=== PATIENT | male | born 1955 | race Caucasian/White ===

== ENCOUNTER → 2017-10-03 11:29 | Outpatient (CLI) | payer MEDICARE, SELFPAY ==
--- NOTE | 2017-10-03 15:09 | STRESSREP ---
Stress Test Report Date: 10/03/2017 Procedure: Exercise tolerance test Indications: Chest pain; CAD; status post CABG Consent: Per the patient Procedure: The patient exercised on a Everardo protocol for 7 minutes 30 seconds completing stage II and 1 minute 30 seconds of stage III achieving a peak heart rate of 144 bpm (92% predicted maximal heart rate) with a peak blood pressure 184/92 mmHg and a peak MET capacity of 9 METs. The baseline ECG demonstrated normal sinus rhythm. The peak exercise ECG demonstrated no obvious ECG changes. There were no cardiac dysrhythmias pretest, during exercise, or recovery. The functional capacity was considered good. The patient had no complaint of chest discomfort during exercise or recovery. The examination was discontinued secondary to leg discomfort. Impression: 1. Technically adequate (percent predicted maximal heart rate greater than 85%) exercise tolerance test 2. Peak exercise ECG with no obvious ECG changes 3. Good functional capacity This note was generated with [employer] software. It may contain incorrect words, spelling, and punctuation that were not noted in checking the note before signing.
--- NOTE | 2017-10-03 15:12 | STRESSREP_ITS ---
Stress Test Report Date: 10/03/2017 Procedure: Exercise tolerance test Indications: Chest pain; CAD; status post CABG Consent: Per the patient Procedure: The patient exercised on a Everardo protocol for 7 minutes 30 seconds completing stage II and 1 minute 30 seconds of stage III achieving a peak heart rate of 144 bpm (92% predicted maximal heart rate) with a peak blood pressure 184/92 mmHg and a peak MET capacity of 9 METs. The baseline ECG demonstrated normal sinus rhythm. The peak exercise ECG demonstrated no obvious ECG changes. There were no cardiac dysrhythmias pretest, during exercise, or recovery. The functional capacity was considered good. The patient had no complaint of chest discomfort during exercise or recovery. The examination was discontinued secondary to leg discomfort. Impression: 1. Technically adequate (percent predicted maximal heart rate greater than 85% ) exercise tolerance test 2. Peak exercise ECG with no obvious ECG changes 3. Good functional capacity This note was generated with [employer] software. It may contain incorrect words, spelling, and punctuation that were not noted in checking the note before signing.
== END ==
PROVIDERS: Family Provider Internal Medicine; PCP Internal Medicine; Visit Provider Internal Medicine Cardiovascular Disease
DX: I25.10 Atherosclerotic heart disease of native coronary artery without angina pectoris (principal); I25.708 Atherosclerosis of coronary artery bypass graft(s), unspecified, with other forms of angina pectoris
CPT/HCPCS: 93017

== ENCOUNTER → 2017-11-03 12:06 | Outpatient (CLI) | payer MEDICARE, SELFPAY ==
[2017-11-03 14:32] LABS: ALB/GLOB Ratio 1.1 RATIO (0.9-2.4); AST(SGOT) 23 U/L (15-37); Alanine Aminotransfer ALT/SGPT 34 U/L (16-61); Albumin, Serum 3.9 g/dL (3.2-5.0); Alkaline Phosphatase 100 U/L (45-117); Anion Gap 6 (5-15); BUN 25 mg/dL (7-18); BUN/Creat Ratio 23.8 RATIO (10-20); Calcium,Total 8.5 mg/dL (8.5-10.1); Chloride 106 mmol/L (98-107); Creatinine, Serum 1.05 mg/dL (0.70-1.30); EST Glomerular Filtration Rate 75 mL/min (>60); Est Glom Filt Rate - Afr Amer 91 mL/min (>60); Globulin 3.4 g/dL (2.2-4.2); Glucose 111 mg/dL (74-106); Potassium 4.1 mmol/L (3.5-5.1); Protein, Total 7.3 g/dL (6.4-8.2); Sodium Level 140 mmol/L (136-145); T4 Free Direct 0.66 ng/dL (0.76-1.46); Thyroid Stim Hormone (TSH) 2.13 uIU/mL (0.358-3.74)
== END ==
PROVIDERS: Visit Provider Nurse Practitioner
DX: R42 Dizziness and giddiness (principal); R53.81 Other malaise; R53.83 Other fatigue
CPT/HCPCS: 80053; 84439; 84443

== ENCOUNTER → 2018-06-28 12:50 | Outpatient (CLI) | payer MEDICARE, SELFPAY ==
[2017-07-17 10:12] VITALS: BMI 34.5
[2018-06-28 13:22] LABS: Absolute Lymphocyte Count 1.67 X10^3/ul (0.83-4.51); Absolute Neutrophil Count 2.9 X10^3/uL (2.0-7.7); Basophil# 0.03 X10^3/uL; Basophil% 0.5 % (0-1); Eosinophil# 0.31 X10^3/uL; Eosinophils% 5.7 % (0-5); Hematocrit 43.6 % (40-54); Hemoglobin 14.4 g/dl (13.0-16.5); Lymphocyte # 1.67 X10^3/ul (4.0); Lymphocyte % 30.5 % (19-41); Mean Corpuscular Volume 87.7 fL (80-94); Mean Platelet Vol. 9.2 fl (6.2-12.0); Monocyte# 0.54 X10^3/uL; Monocyte% 9.9 % (0-10); Neutrophil # 2.91 X10^3/uL (2.7-7.7); Neutrophil % 53.2 % (47-70); POSITIVE COUNT NO; POSITIVE DIFFERENTIAL NO; POSITIVE MORPHOLOGY NO; Platelet Count 283 K/mm3 (150-450); RBC Distribution Width CV 13.3 % (11.6-14.6); RBC Distribution Width SD 42.4 fl (35.1-43.9); Red Blood Count 4.97 M/mm3 (4.6-6.2); White Blood Count 5.5 K/mm3 (4.4-11.0)
[2018-06-28 13:31] LABS: AST(SGOT) 28 U/L (15-37); Alanine Aminotransfer ALT/SGPT 46 U/L (16-61); Albumin, Serum 3.7 g/dL (3.2-5.0); Alkaline Phosphatase 109 U/L (45-117); Anion Gap 6 (5-15); BUN 28 mg/dL (7-18); BUN/Creat Ratio 24.3 RATIO (10-20); Calcium,Total 8.8 mg/dL (8.5-10.1); Chloride 106 mmol/L (98-107); Creatinine, Serum 1.15 mg/dL (0.70-1.30); EST Glomerular Filtration Rate 68 mL/min (>60); Est Glom Filt Rate - Afr Amer 82 mL/min (>60); Globulin 3.6 g/dL (2.2-4.2); Glucose 134 mg/dL (74-106); Potassium 4.5 mmol/L (3.5-5.1); Protein, Total 7.3 g/dL (6.4-8.2); Sodium Level 140 mmol/L (136-145)
[2018-06-28 13:37] LABS: Hemoglobin A1c 7.3 % (4.2-6.3)
[2018-06-28 14:46] LABS: Microalbumin,Random Urine 7.6 mg/L (NO RANGE EST.); Microalbumin:Creatinine Ratio 4.8 mg/g CRE (<30 mg/g CRE)
== END ==
PROVIDERS: Family Provider Internal Medicine; PCP Internal Medicine; Referring Provider Internal Medicine; Visit Provider Internal Medicine
DX: R20.0 Anesthesia of skin (principal); R63.5 Abnormal weight gain; Z79.899 Other long term (current) drug therapy
CPT/HCPCS: 80053; 82043; 82570; 83036; 85025

== ENCOUNTER → 2018-07-10 07:36 | Outpatient (CLI) | payer MEDICARE, SELFPAY ==
[2018-07-10 13:11] LABS: Cholesterol 187 mg/dL (200); High Density Lipoprotein 39 mg/dL; Triglycerides 108 mg/dL; Very Low Density Lipoprotein 22 mg/dL (5-40)
--- OUTSIDE RECORDS SUMMARY | 2018-08-22 04:02 | XMS RPT_ITS ---
:[address] [facility] Support Name Relationship Address Phone D Unavailable Unavailable Unavailable SEJAL FIGUEROAHUNTER Unavailable [address] + [place] [address] LAURITA, ANDREE Unavailable Unavailable + [place] [address] D Unavailable Unavailable Unavailable SEJAL FIGUEROAANANE Unavailable [address] + [place] [address] LAURITA, ANDREE Unavailable Unavailable + [place] [address] D Unavailable Unavailable Unavailable SEJAL FIGUEROAANANE Unavailable [address] + [place] [address] LAURITA, ANDREE Unavailable Unavailable + [place] [address] D Unavailable Unavailable Unavailable WENDY FIGUEROANE Unavailable [address] + [place] [address] LAURITA, ANDREE Unavailable Unavailable + [place] [address] D Unavailable Unavailable Unavailable SEJAL FIGUEROAANANE Unavailable [address] + [place] [address] LAURITA, ANDREE Unavailable Unavailable + [place] [address] D Unavailable Unavailable Unavailable WENDY FIGUEROANE Unavailable [address] + [place] [address] LAURITA, ADNREE Unavailable . + [place] [address] Care Team Providers Name Role Phone Jose Luis Miranda Attending Unavailable Jose Luis Miranda Primary Care Unavailable Holly Cohen Attending Unavailable Holly Cohen Referring Unavailable Jose Luis Miranda Primary Care Unavailable Momo Costa Attending Unavailable Holly Cohen Referring Unavailable Adrian, Saira STATOR PLATE WASHER Attending Unavailable Miranda, Jose Luis Primary Care Unavailable Older, Saira STATOR PLATE WASHER Referring Unavailable Miranda, Jose Luis Attending Unavailable Miranda, Jose Luis Referring Unavailable Miranda, Jose Luis Primary Care Unavailable Miranda, Jose Luis Attending Unavailable Miranda, Jose Luis Referring Unavailable Miranda, Jose Luis Primary Care Unavailable OLDER, SAIRA (STATOR PLATE WASHER) Referring Unavailable OLDER, SAIRA (STATOR PLATE WASHER) Attending Unavailable MIRANDA, MANUEL Attending Unavailable OLDER, SAIRA (STATOR PLATE WASHER) Attending Unavailable OLDER, SIARA (STATOR PLATE WASHER) Referring Unavailable MIRANDA, MANUEL Attending Unavailable MIRANDA, MANUEL Referring Unavailable MIRANDA, MANUEL Referring Unavailable MIRANDA, MANUEL Referring Unavailable MIRANDA, MANUEL Attending Unavailable MIRANDA, MANUEL Referring Unavailable HOLLY COHEN Attending Unavailable HOLLY COHEN Referring Unavailable HOLLY COHEN Attending Unavailable HOLLY COHEN Referring Unavailable Jose Luis Miranda MD Primary Care Unavailable PROBLEMS PROBLEMS DATE TYPE CONDITION / CODE ATTENDING STATUS SOURCE 07/10/2018 Unknown Z79.899 - Other long Miranda, Active [place] term (current) drug [facility] therapy / Hospital Z79.899(ICD-10) Repository 06/28/2018 Unknown R20.0 - Anesthesia Miranda, Active [place] of skin / [facility] R20.0(ICD-10) Hospital Repository 06/28/2018 Unknown R63.5 - Abnormal Miranda, Active [place] weight gain / [facility] R63.5(ICD-10) Hospital Repository 06/28/2018 Active Other senior living NA Active [place] (current) drug [facility] Main therapy / [place] Z79.899(ICD-10) Repository 06/28/2018 Active Abnormal weight gain NA Active [place] / R63.5(ICD-10) Clinic Main [place] Repository 06/28/2018 Active Anesthesia of skin / NA Active [place] R20.0(ICD-10) Clinic Main [place] Repository 11/03/2017 Unknown R53.81 - Other Older, Saira STATOR PLATE WASHER Active [place] malaise / Community R53.81(ICD-10) Hospital Repository 11/03/2017 Unknown R42 - Dizziness and Older, Saira STATOR PLATE WASHER Active [place] giddiness / Community R42(ICD-10) Hospital Repository 11/03/2017 Unknown R53.83 - Other Older, Saira STATOR PLATE WASHER Active [place] fatigue / Community R53.83(ICD-10) Hospital Repository 10/26/2017 Active Other malaise / NA Active [place] R53.81(ICD-10) Clinic Main [place] Repository 10/26/2017 Active Other fatigue / NA Active [place] R53.83(ICD-10) Clinic Main [place] Repository 10/26/2017 Active Dizziness and NA Active [place] giddiness / Clinic Main R42(ICD-10) [place] Repository 10/30/2017 Unknown I25.10 - [place], Active [place] Atherosclerotic [facility] heart disease of [facility] anvik coronary Repository artery without angina pectoris / I25.10(ICD-10) 09/19/2017 Active Atherosclerosis of NOEL, Active [place] coronary artery [facility] Other bypass graft(s), [place] unspecified, with Repository other forms of angina pectoris / I25.708(ICD-10) 09/19/2017 Active Atherosclerotic NOEL, Active [place] heart disease of [facility] Other anvik coronary [place] artery without Repository angina pectoris / I25.10(ICD-10) 09/19/2017 Active Other forms of NOEL, Active [place] dyspnea / [facility] Other R06.09(ICD-10) [place] Repository 09/19/2017 Admitting Unknown / NOEL, Active [place] [facility] diagnosis UNK(Unknown) [facility] Repository 08/03/2017 Unknown Z12.5 - Encounter Isaac Miranda for screening for [facility] malignant neoplasm [facility] prostate / Repository Z12.5(ICD-10) 08/03/2017 Active Encounter for NA [facility] screening for [facility] malignant neoplasm [place] of prostate / Repository Z12.5(ICD-10) PROCEDURES PROCEDURES No Procedure Records FoundRESULTS RESULTS PROGRESS Observed: 07/17/2018 Status: COMPLETED Source: [place] 10:02 AM [facility] REPOSITORY HNO ID: [id number] Author: Jose Luis Miranda Service: (none) Author Type: Physician Type: Progress Notes Filed: 07/17/2018 10:21 AM Note Text: This note was created using [employer]riter. Subjective Abdirizak Figueroa was here for follow up. He was mainly concerned about his labs. His medication list was updated. He was seeing Dr. Garcia for pain management, and was being referred to [facility] for evaluation of arthritis. ACTIVE PROBLEM LIST Displacement of Cervical Intervertebral Disc Without Myelopathy Fibromyalgia Generalized Osteoarthritis Rosacea Other Hyperlipidemia Copd With Chronic Bronchitis (Hcc) Lumbosacral Neuritis Constipation Hearing Loss of Both Ears Cad (Coronary Artery Disease) Tubular Adenoma of Colon Impaired Fasting Glucose Gastroesophageal Reflux Disease With Esophagitis Bph With Obstruction/Lower Urinary Tract Symptoms Obesity, Class I, Bmi 30-34.9 Current Outpatient Prescriptions: celecoxib (CELEBREX) 200 mg capsule Take 200 mg by mouth once daily. atorvastatin (LIPITOR) 80 mg tablet Take 1 tablet by mouth daily at bedtime. traZODone (DESYREL) 50 mg tablet Take 1-2 tablets by mouth daily at bedtime. gabapentin (NEURONTIN) 300 mg capsule Take 1 capsule by mouth twice daily. Prescribed by pain management. albuterol HFA (VENTOLIN HFA) 90 mcg/actuation inhaler Inhale 2 Puffs as instructed every 4 hours as needed for Wheezing/Shortness of Breath. fluticasone (FLONASE) 50 mcg/actuation nasal spray Use 2 Sprays in each nostril once daily. multivitamin tablet Take 1 tablet by mouth once daily. HYDROcodone-acetaminophen 5-325 mg per tablet Take 1 tablet by mouth every 6 hours as needed. cyclobenzaprine (FLEXERIL) 10 mg tablet Take 1 tablet by mouth every 8 hours as needed. FOR PAIN OR SPASMS aspirin, enteric coated (ASPIR-81) 81 mg EC tablet Take 1 tablet by mouth once daily. calcium Carbonate 300 mg, 750mg, (TUMS) 300 mg (750 mg) chewable tablet Take 1 tablet by mouth as needed (heartburn). No current facility-administered medications for this visit. Review of Systems Constitutional: Negative. Respiratory: Negative. Cardiovascular: Negative. Gastrointestinal: Negative. Endocrine: Negative. Musculoskeletal: Positive for arthralgias and back pain. Neurological: Negative. Objective BP 118/78 (BP Site: Right Arm, BP Position: Sitting, BP Cuff Size: Large Adult) Pulse 76 Temp 36.5 ?C (97.7 ?F) (Left Tympanic) Resp 12 Wt 111.1 kg (245 lb) BMI 35.15 kg/m? Physical Exam Constitutional: No distress. Eyes: Conjunctivae are normal. Cardiovascular: Normal heart sounds. Pulmonary/Chest: Breath sounds normal. Abdominal: Soft. There is no tenderness. Musculoskeletal: He exhibits deformity. He exhibits no edema. Feet: Shoes and socks removed, No deformities, ulcers, calluses, normal distal pulses, sensitive to 10 gm monofilament and Pes planus. Test results pertinent to today's visit were reviewed and discussed with the patient. Assessment and Plan 1. Controlled type 2 diabetes mellitus without complication, without long-term current use of insulin ([facility]) - ICD9: 250.00, ICD10: E11.9 (primary diagnosis) newly diagnosed - Blood glucose monitoring on a once a day schedule - METFORMIN 500 MG TABLET - LANCETS - BLOOD SUGAR DIAGNOSTIC STRIPS - Goal is fasting below <130. 2 hours post meals <180. 2. Need for vaccination - ICD9: V05.9, ICD10: Z23 - ADMIN OF INFLUENZA VACCINE - INFLUENZA SEASONAL HIGH DOSE AGE 65+ - PNEUMOCOCCAL-13 VACCINE PCV-13 3. Impaired fasting glucose - ICD9: 790.21, ICD10: R73.01 Diabetic now. 4. Gastroesophageal reflux disease with esophagitis - ICD9: 530.11, ICD10: K21.0 - CALCIUM CARBONATE 300 MG (750 MG) CHEWABLE TABLET 5. 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 6. Other hyperlipidemia - ICD9: 272.4, ICD10: E78.49 - suboptimal control - Continue current medication. - ATORVASTATIN 80 MG TABLET 7. Generalized osteoarthritis - ICD9: 715.00, ICD10: M15.9 Per pain management. - CELECOXIB 200 MG CAPSULE Jose Luis Miranda MD CNOV Observed: 07/17/2018 Status: COMPLETED Source: [place] 9:20 AM [facility] REPOSITORY Office Visit (INTMWS) ABDIRIZAK FIGUEROA ([id number]) 1955 M NFR Date Time Provider Department 07/17/18 9:20 AM JOSE LUIS MIRANDA INTMWS During your visit today, we recorded the following information about you: Temperature Pulse Respiration Blood pressure 97.7 degrees 76/minute 12/minute 118/78 Weight 111.1 kg Kori Moura TORI 07/17/2018 9:44 AM Signed Influenza Vaccine Documentation: ? Patient is identified by name and date of : Yes ? Patient is older than 6 months of age: Yes ? Patient denies a severe allergy to any vaccine component or to a previous dose of influenza vaccine: Yes FOR EGG ALLERGY CONCERNS, REFER TO PROVIDER. ? Denies allergy to gelatin, formaldehyde, thimerosol :Yes ? Patient is afebrile and not moderately or severely ill: Yes ? Does the patient have a history of Guillain ?[place] Syndrome (a severe paralytic illness): No ? Denies bone marrow transplant prior 6 months or solid organ transplant prior 3 months: Yes ? Denies a history of fainting after a prior injection or medical procedure? Yes If patient has fainted in the past, the CDC recommends sitting or lying down for 15 minutes after the vaccination. ? VIS sheet provided: Yes ? See Immunization Form in [facility] for details of immunizations administered today. If patient reports dizziness, vision changes or ringing in the ears post vaccination ? please have patient sit or lie down for 15 minutes. Jose Luis Miranda MD 07/17/2018 10:21 AM Signed This note was created using [employer]. Subjective Abdirizak Figueroa was here for follow up. He was mainly concerned about his labs. His medication list was updated. He was seeing Dr. Garcia for pain management, and was being referred to [facility] for evaluation of arthritis. ACTIVE PROBLEM LIST Displacement of Cervical Intervertebral Disc Without Myelopathy Fibromyalgia Generalized Osteoarthritis Rosacea Other Hyperlipidemia Copd With Chronic Bronchitis (Hcc) Lumbosacral Neuritis Constipation Hearing Loss of Both Ears Cad (Coronary Artery Disease) Tubular Adenoma of Colon Impaired Fasting Glucose Gastroesophageal Reflux Disease With Esophagitis Bph With Obstruction/Lower Urinary Tract Symptoms Obesity, Class I, Bmi 30-34.9 Current Outpatient Prescriptions: celecoxib (CELEBREX) 200 mg capsule Take 200 mg by mouth once daily. atorvastatin (LIPITOR) 80 mg tablet Take 1 tablet by mouth daily at bedtime. traZODone (DESYREL) 50 mg tablet Take 1-2 tablets by mouth daily at bedtime. gabapentin (NEURONTIN) 300 mg capsule Take 1 capsule by mouth twice daily. Prescribed by pain management. albuterol HFA (VENTOLIN HFA) 90 mcg/actuation inhaler Inhale 2 Puffs as instructed every 4 hours as needed for Wheezing/Shortness of Breath. fluticasone (FLONASE) 50 mcg/actuation nasal spray Use 2 Sprays in each nostril once daily. multivitamin tablet Take 1 tablet by mouth once daily. HYDROcodone-acetaminophen 5-325 mg per tablet Take 1 tablet by mouth every 6 hours as needed. cyclobenzaprine (FLEXERIL) 10 mg tablet Take 1 tablet by mouth every 8 hours as needed. FOR PAIN OR SPASMS aspirin, enteric coated (ASPIR-81) 81 mg EC tablet Take 1 tablet by mouth once daily. calcium Carbonate 300 mg, 750mg, (TUMS) 300 mg (750 mg) chewable tablet Take 1 tablet by mouth as needed (heartburn). No current facility-administered medications for this visit. Review of Systems Constitutional: Negative. Respiratory: Negative. Cardiovascular: Negative. Gastrointestinal: Negative. Endocrine: Negative. Musculoskeletal: Positive for arthralgias and back pain. Neurological: Negative. Objective BP 118/78 (BP Site: Right Arm, BP Position: Sitting, BP Cuff Size: Large Adult) Pulse 76 Temp 36.5 ?C (97.7 ?F) (Left Tympanic) Resp 12 Wt 111.1 kg (245 lb) BMI 35.15 kg/m? Physical Exam Constitutional: No distress. Eyes: Conjunctivae are normal. Cardiovascular: Normal heart sounds. Pulmonary/Chest: Breath sounds normal. Abdominal: Soft. There is no tenderness. Musculoskeletal: He exhibits deformity. He exhibits no edema. Feet: Shoes and socks removed, No deformities, ulcers, calluses, normal distal pulses, sensitive to 10 gm monofilament and Pes planus. Test results pertinent to today's visit were reviewed and discussed with the patient. Assessment and Plan 1. Controlled type 2 diabetes mellitus without complication, without long-term current use of insulin (HCC) - ICD9: 250.00, ICD10: E11.9 (primary diagnosis) newly diagnosed - Blood glucose monitoring on a once a day schedule - METFORMIN 500 MG TABLET - LANCETS - BLOOD SUGAR DIAGNOSTIC STRIPS - Goal is fasting below <130. 2 hours post meals <180. 2. Need for vaccination - ICD9: V05.9, ICD10: Z23 - ADMIN OF INFLUENZA VACCINE - INFLUENZA SEASONAL HIGH DOSE AGE 65+ - PNEUMOCOCCAL-13 VACCINE PCV-13 3. Impaired fasting glucose - ICD9: 790.21, ICD10: R73.01 Diabetic now. 4. Gastroesophageal reflux disease with esophagitis - ICD9: 530.11, ICD10: K21.0 - CALCIUM CARBONATE 300 MG (750 MG) CHEWABLE TABLET 5. 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 6. Other hyperlipidemia - ICD9: 272.4, ICD10: E78.49 - suboptimal control - Continue current medication. - ATORVASTATIN 80 MG TABLET 7. Generalized osteoarthritis - ICD9: 715.00, ICD10: M15.9 Per pain management. - CELECOXIB 200 MG CAPSULE Jose Luis Miranda MD Referring Provider: JOSE LUIS MIRANDA [[id number]] Allergies As of Date: 07/17/2018 Noted Allergy Reaction ADHESIVE TAPE (ROSINS) 10/15/2014 9 - Itching CONTRAST DYE 07/28/2009 Comments: possible FD AND C BLUE NO.1 07/28/2009 SERTRALINE 01/14/2004 Comments: shellie fitch, elevated BP Date Reviewed: 07/17/2018 Reviewed by: Kori Moura LPN - Fully Assessed Reason for Visit: F/U 6 Month [444] Primary Visit Diagnosis:Controlled type 2 diabetes mellitus without complication, without long-term current use of insulin (HCC) [E11.9] Other Visit Diagnoses:Need for vaccination [Z23] Impaired fasting glucose [R73.01] Gastroesophageal reflux disease with esophagitis [K21.0] Coronary artery disease involving anvik coronary artery of anvik heart without angina pectoris [I25.10] Other hyperlipidemia [E78.49] Generalized osteoarthritis [M15.9] Order(s):ADMIN OF INFLUENZA VACCINE [[id number]] Order #: [id number]: 1 INFLUENZA SEASONAL HIGH DOSE AGE 65+ [[id number]] Order #: [id number] atorvastatin (LIPITOR) 80 mg tabletTake 1 tablet by mouth daily at bedtime.Disp: 90 tabletRfl: 3 calcium Carbonate 300 mg, 750mg, (TUMS) 300 mg (750 mg) chewable tabletTake 1 tablet by mouth as needed (heartburn).Disp: Rfl: PNEUMOCOCCAL-13 VACCINE PCV-13 [[id number]] Order #: [id number] metFORMIN (GLUCOPHAGE) 500 mg tabletTake 1 tablet by mouth twice daily with meals.Disp: 60 tabletRfl: 5 Lancets lancetsTest blood sugar(s) one times daily. Dx: Type 2 DM - Controlled E11.9 Insulin: NoDisp: 100 EachRfl: 5 blood sugar diagnostic (BLOOD GLUCOSE TEST) test stripTest blood sugar(s) one times daily. Dx: Type 2 DM - Controlled E11.9 Insulin: NoDisp: 50 StripRfl: 5 Prescriptions as of 07/17/2018 Sig: CELECOXIB 200 MG CAPSULE Take 200 mg by mouth once ladan* ATORVASTATIN 80 MG TABLET Take 1 tablet by mouth daily * TRAZODONE 50 MG TABLET Take 1-2 tablets by mouth ladan* GABAPENTIN 300 MG CAPSULE Take 1 capsule by mouth twice* ALBUTEROL SULFATE HFA 90 MCG/* Inhale 2 Puffs as instructed * FLUTICASONE 50 MCG/ACTUATION * Use 2 Sprays in each nostril * MULTIVITAMIN TABLET Take 1 tablet by mouth once d* HYDROCODONE 5 MG-ACETAMINOPHE* Take 1 tablet by mouth every * CYCLOBENZAPRINE 10 MG TABLET Take 1 tablet by mouth every * * ASPIRIN 81 MG TABLET,DELAYED * Take 1 tablet by mouth once d* CALCIUM CARBONATE 300 MG (750* Take 1 tablet by mouth as nee* METFORMIN 500 MG TABLET Take 1 tablet by mouth twice * LANCETS Test blood sugar(s) one times* BLOOD SUGAR DIAGNOSTIC STRIPS Test blood sugar(s) one times* Problem List As Of Date 07/17/2018 Noted Resolved CERVICAL DISC DISPLACMNT [M50.20] INVALID FOR* Fibromyalgia [M79.7] INVALID FOR* Generalized osteoarthritis [M15.9] INVALID FOR* Dysthymic disorder [F34.1] 07/17/2017 More... Rosacea [L71.9] More... More... Other hyperlipidemia [E78.49] COPD with chronic bronchitis (HCC) [J44.9] Other malaise and fatigue [R53.81, R53.83] 04/12/2016 Other specified disease of hair and hair follic* 11/04/2014 Headache(784.0) [R51] INVALID FOR*01/15/2018 Lumbosacral neuritis [M54.17] INVALID FOR* More... Diabetes mellitus [E11.9] INVALID FOR*09/04/2012 Constipation [K59.00] INVALID FOR* GERD (gastroesophageal reflux disease) [K21.9] INVALID FOR*07/17/2017 Hearing loss of both ears [H91.93] More... Pain in joint, shoulder region [M25.519] INVALID FOR*04/12/2016 Laboratory test [Z01.89] INVALID FOR*11/04/2014 More... CAD (coronary artery disease) [I25.10] INVALID FOR* More... Sore throat (viral) [J02.9] INVALID FOR*11/04/2014 More... Tubular adenoma of colon [D12.6] INVALID FOR* Impaired fasting glucose [R73.01] INVALID FOR* Calculus of gallbladder without cholecystitis w*INVALID FOR*01/15/2018 Gastroesophageal reflux disease with esophagiti*INVALID FOR* Hemorrhoids, internal [K64.8] INVALID FOR*01/15/2018 More... Bright red rectal bleeding [K62.5] INVALID FOR*07/17/2017 More... History of colonic polyps [Z86.010] INVALID FOR*07/17/2017 More... BPH with obstruction/lower urinary tract sympto*INVALID FOR* Obesity, Class I, BMI 30-34.9 [E66.9] INVALID FOR* Controlled type 2 diabetes mellitus without com*INVALID FOR* Visit Notes: >> Kori Moura LPN Tue Jul 17, 2018 9:24 AM Status: Signed Influenza Vaccine Documentation: ? Patient is identified by name and date of : Yes ? Patient is older than 6 months of age: Yes ? Patient denies a severe allergy to any vaccine component or to a previous dose of influenza vaccine: Yes FOR EGG ALLERGY CONCERNS, REFER TO PROVIDER. ? Denies allergy to gelatin, formaldehyde, thimerosol :Yes ? Patient is afebrile and not moderately or severely ill: Yes ? Does the patient have a history of Guillain ?[place] Syndrome (a severe paralytic illness): No ? Denies bone marrow transplant prior 6 months or solid organ transplant prior 3 months: Yes ? Denies a history of fainting after a prior injection or medical procedure? Yes If patient has fainted in the past, the CDC recommends sitting or lying down for 15 minutes after the vaccination. ? VIS sheet provided: Yes ? [facility] for details of immunizations administered today. If patient reports dizziness, vision changes or ringing in the ears post vaccination ? please have patient sit or lie down for 15 minutes. Prescriptions ordered this encounter Disp Refills Start End ATORVASTATIN 80 MG TABLET 90 t* 3 07/17/2018 Route: ORAL Sig: Take 1 tablet by mouth daily at bedtime. CALCIUM CARBONATE 300 MG (750 MG) CH* 07/17/2018 Class: OTC Route: ORAL Sig: Take 1 tablet by mouth as needed (heartburn). METFORMIN 500 MG TABLET 60 t* 5 07/17/2018 Route: ORAL Sig: Take 1 tablet by mouth twice daily with meals. LANCETS 100 * 5 07/17/2018 Sig: Test blood sugar(s) one times daily. Dx: Type 2 DM - Controlled E11.9 Insulin: No BLOOD SUGAR DIAGNOSTIC STRIPS 50 S* 5 07/17/2018 Sig: Test blood sugar(s) one times daily. Dx: Type 2 DM - Controlled E11.9 Insulin: No Medications Discontinued During This Encounter pantoprazole DR (PROTONIX) 40 mg tab* 90 t* 3 01/15/2018 07/17/2018 Route: ORAL Sig: Take 1 tablet by mouth daily before breakfast. Take on empty stomach, 1/2 hr before meal. Patient not taking: Reported on 07/17/2018 Disc: Discontinued by Patient atorvastatin (LIPITOR) 80 mg tablet 90 t* 3 05/04/2017 07/17/2018 Route: ORAL Sig: Take 1 tablet by mouth daily at bedtime. Disc: Reason for discontinue is not on file. venlafaxine ER (EFFEXOR XR) 75 mg 24* 60 c* 11 01/15/2018 07/17/2018 Route: ORAL Sig: Take 2 capsules by mouth once daily. Patient not taking: Reported on 07/17/2018 Disc: Discontinued by Patient Flurbiprofen 100 mg tablet 60 t* 0 01/15/2018 07/17/2018 Route: ORAL Sig: Take 1 tablet by mouth twice daily. For arthritis. Take with food. Patient not taking: Reported on 07/17/2018 Disc: Reason for discontinue is not on file. Disposition: Return in about 4 months (around 11/15/2018). Follow-up and Disposition History Recorded Encounter Status:Closed by JOSE LUIS MIRANDA MD on 07/17/18 LIPID PROFILE Collected: 07/10/2018 Status: F Source: [place] 7:53 AM [facility] [place] REPOSITORY TYPE CODE TESTS RESULT OUT OF RANGE REFERENCE UNITS LAB L501.4900 200 mg/dL Normal CHOL 187 Result Comment: <200 mg/dL Desirable 200-240 mg/dL Borderline >240 mg/dL High Risk LAB L501.5000 mg/dL Normal TRIG 108 Result Comment: The drugs N-Acetylcysteine and Metamizole may falsely depress this assay. Serum Triglycerides Reference Interval Normal <150 mg/dL Borderline high 150 - 199 mg/dL High 200 - 499 mg/dL Very High > or = 500 mg/dL LAB L501.6400 mg/dL Low HDL 39 Result Comment: The drugs N-Acetylcysteine and Metamizole may falsely depress this assay. Reference Range HDL <40 mg/dL Low HDL Cholesterol HDL >or= 60 mg/dL High HDL Cholesterol LAB L501.6500 0-130 mg/dL Normal LDL 126 LAB L501.6600 5-40 mg/dL Normal VLDL 22 Performed By: #### L500.4100 #### [facility] [address] [place], [address] LIPID PANEL, BASIC Collected: 07/10/2018 Status: F Source: [place] 7:53 AM [facility]IC [facility] REPOSITORY TYPE CODE TESTS RESULT OUT OF REFERENCE UNITS RANGE LAB CHOL <200 mg/dL Cholesterol Test sent to [facility]. Result Comment: Account Credited HIDE LAB TRIGLY <150 mg/dL Triglyceride Test sent to [facility]. Result Comment: Account Credited HIDE LAB HDL >39 mg/dL HDL-Cholesterol Test sent to [facility]. Result Comment: Account Credited HIDE LAB LDL <100 mg/dL LDL-Cholesterol Test sent to [facility]. Result Comment: Account Credited HIDE LAB NONHDL 90-159 mg/dL Non HDL Test Cholesterol sent to [facility]. Result Comment: Account Credited HIDE LAB FT hrs Fasting Time 12 LAB VLDL <30 mg/dL VLDL Cholesterol Test sent to [facility]. Result Comment: Account Credited HIDE LAB TCHDL <5.10 Test sent TC:HDL Ratio to [facility]. Result Comment: Account Credited HIDE LAB LDLHDL <2.54 Test sent LDL:HDL Ratio to [facility]. Result Comment: Account Credited RICHARDE ALBUMIN/CREAT RATIO Collected: 06/28/2018 Status: F Source: [place] 10:58 AM [facility] REPOSITORY TYPE CODE TESTS RESULT OUT OF REFERENCE UNITS RANGE LAB UCRR 20-300 mg/dL Test sent to [facility]. Result Comment: Account Credited HIDE LAB UALBR 0.0-23.0 mg/L Test Albumin Urine sent to [facility]. Result Comment: Account Credited HIDE LAB UALBCR 0-30 mg/g Albumin/Creat Ratio Test sent to [facility]. Result Comment: Account Credited RICHARDE CBC AND DIFFERENTIAL Collected: 06/28/2018 Status: F Source: [place] 8:03 AM [facility] REPOSITORY TYPE CODE TESTS RESULT OUT OF REFERENCE UNITS RANGE LAB WBC 3.70-11.00 k/uL Test WBC sent to [facility]. Result Comment: Account Credited HIDE LAB RBC 4.20-6.00 m/uL Test sent RBC to [facility]. Result Comment: Account Credited HIDE LAB HGB 13.0-17.0 g/dL Hemoglobin Test sent to [facility]. Result Comment: Account Credited HIDE LAB HCT 39.0-51.0 % Hematocrit Test sent to [facility]. Result Comment: Account Credited HIDE LAB MCV 80.0-100.0 fL Test sent MCV to [facility]. Result Comment: Account Credited HIDE LAB MCH 26.0-34.0 pG Test sent MCH to [facility]. Result Comment: Account Credited HIDE LAB MCHC 30.5-36.0 g/dL Test MCHC sent to [facility]. Result Comment: Account Credited HIDE LAB RDWCV 11.5-15.0 % Test RDW-CV sent to [facility]. Result Comment: Account Credited HIDE LAB PLTCT 150-400 k/uL Test Platelet Count sent to [facility]. Result Comment: Account Credited HIDE LAB MPV 9.0-12.7 fL Test sent MPV to [facility]. Result Comment: Account Credited HIDE LAB MAICO Recheck Test sent to [facility]. Result Comment: Account Credited HIDE LAB [facility]EUT [facility] Result Comment: Account Credited HIDE LAB AANEUT 1.45-7.50 k/uL Test Abs sent to [facility]. Result Comment: Account Credited HIDE LAB ALYMP % [facility] Result Comment: Account Credited HIDE LAB AALYMP 1.00-4.00 k/uL Test Abs Lymph sent to [facility]. Result Comment: Account Credited HIDE LAB AMONO % Test sent to Stearns% [facility]. Result Comment: Account Credited HIDE LAB AAMONO <0.87 k/uL Test sent Abs Stearns to [facility]. Result Comment: Account Credited HIDE LAB AEOS % Test sent to Eosin% [facility]. Result Comment: Account Credited HIDE LAB AAEOS <0.46 k/uL Test sent Abs Eosin to [facility]. Result Comment: Account Credited HIDE LAB ABASO % [facility] Result Comment: Account Credited HIDE LAB AABASO <0.11 k/uL Test sent Abs Baso to [facility]. Result Comment: Account Credited HIDE LAB REVW Test sent to Review [facility]. Result Comment: Account Credited HIDE LAB CBCCOM Comment Test sent to [facility]. Result Comment: Account Credited HIDE COMP METABOLIC PANEL Collected: 06/28/2018 Status: F Source: [place] 8:03 AM [facility] REPOSITORY TYPE CODE TESTS RESULT OUT OF REFERENCE UNITS RANGE LAB TP 6.3-8.0 g/dL Test sent to [facility]. Result Comment: Account Credited HIDE LAB ALB 3.9-4.9 g/dL Test Albumin sent to [facility]. Result Comment: Account Credited HIDE LAB CA 8.5-10.2 mg/dL Test Calcium, Total sent to [facility]. Result Comment: Account Credited HIDE LAB TBIL 0.2-1.3 mg/dL Bilirubin, Test Total sent to [facility]. Result Comment: Account Credited HIDE LAB ALKP 38-113 U/L Alkaline Test Phosphatase sent to [facility]. Result Comment: Account Credited HIDE LAB AST 14-40 U/L Test sent AST to [facility]. Result Comment: Account Credited RICHARDE LAB GLU 74-99 mg/dL Test sent Glucose to [facility]. Result Comment: Account Credited RICHARDE LAB BUN 9-24 mg/dL Test sent BUN to [facility]. Result Comment: Account Credited JEAN LAB CRET 0.73-1.22 mg/dL Creatinine Test sent to [facility]. Result Comment: Account Credited HIDE LAB NA 136-144 mmol/L Test Sodium sent to [facility]. Result Comment: Account Credited HIDE LAB K 3.7-5.1 mmol/L Test Potassium sent to [facility]. Result Comment: Account Credited HIDE LAB CL 97-105 mmol/L Test Chloride sent to [facility]. Result Comment: Account Credited RICHARDE LAB CO2 22-30 mmol/L Test sent CO2 to [facility]. Result Comment: Account Credited RICHARDE LAB AGAP 9-18 mmol/L Test sent Anion Gap to [facility]. Result Comment: Account Credited RICHARDE LAB ALT 10-54 U/L Test sent ALT to [facility]. Result Comment: Account Credited HIDE LAB GFRAA eGFR- Amer. Test sent to [facility]. Result Comment: Account Credited HIDE LAB GFRNAA . eGFR-All Test sent Other Races to [facility]. Result Comment: Account Credited JEAN LAB GFRPED eGFR-Ped. Test sent Factor to [facility]. Result Comment: Account Credited JEAN HEMOGLOBIN A1C Collected: 06/28/2018 Status: F Source: [place] 8:03 AM [facility] REPOSITORY TYPE CODE TESTS RESULT OUT OF REFERENCE UNITS RANGE LAB HGBA1C 4.0-6.0 % Test Hemoglobin A1c sent to [facility]. Result Comment: Account Credited JEAN LAB HBA0 mg/dL Est. Test sent Average Glucose to [facility]. Result Comment: Account Credited JEAN CBC W/DIFF, AUTOMATED Collected: 06/28/2018 Status: F Source: [place] 8:02 AM [facility] REPOSITORY TYPE CODE TESTS RESULT OUT OF RANGE REFERENCE UNITS LAB L100.1000 4.4-11.0 K/mm3 Normal WBC 5.5 LAB L100.1200 4.6-6.2 M/mm3 Normal RBC 4.97 LAB L100.1300 13.0-16.5 g/dl Normal HGB 14.4 LAB L100.1400 40-54 % Normal HCT 43.6 LAB L100.1500 80-94 fL Normal MCV 87.7 LAB L100.1600 27.0-32.0 pg Normal MCH 29.0 LAB L100.1700 32-36 g/gl Normal MCHC 33.0 LAB L100.1810 11.6-14.6 % Normal RDW CV 13.3 LAB L100.1820 35.1-43.9 fl Normal RDW SD 42.4 LAB L100.1900 150-450 K/mm3 Normal PLT 283 LAB L100.2000 6.2-12.0 fl Normal MPV 9.2 LAB L100.2100 47-70 % Normal NEUT% 53.2 LAB L100.2200 19-41 % Normal LY% 30.5 LAB L100.2300 0-10 % Normal MONO% 9.9 LAB L100.2400 0-5 % High EO% 5.7 LAB L100.2500 0-1 % Normal BASO% 0.5 LAB L100.2550 0.0-0.9 % Normal IM GRAN % 0.200 Result Comment: IG% - Immature Granulocytes (promyelocytes, myelocytes and metamyelocytes) > 1% indicates that a LEFT SHIFT is Present. LAB L100.2620 2.0-7.7 X10 3/uL Normal Absolute Neut 2.9 LAB L100.2720 0.83-4.51 X10 3/ul Normal Absolute Lymph 1.67 Performed By: #### L100.0100 #### [facility] [address] [place], [place], [address] CREATININE, URINE Collected: 06/28/2018 Status: F Source: [place] (RANDOM) 8:02 AM [facility] REPOSITORY TYPE CODE TESTS RESULT OUT OF RANGE REFERENCE UNITS LAB L501.1200 NO RANGE EST. mg/dL Normal UR CREAT 161.00 Performed By: #### L501.1200, L502.0250 #### [facility] [address] [place], [place], [address] MICROALB:CREAT Collected: 06/28/2018 Status: F Source: [place] RATIO,RANDOM UR 8:02 AM [facility] REPOSITORY TYPE CODE TESTS RESULT OUT OF RANGE REFERENCE UNITS LAB L501.1200 NO RANGE EST. mg/dL Normal UR CREAT 161.00 LAB L502.0500 NO RANGE EST. mg/L Normal 7.6 MICROALBUMIN ,UR LAB L502.0600 <30 mg/g CRE mg/g CRE Normal 4.8 MALB:CREAT Performed By: #### L501.1200, L502.0250 #### [facility] [address] [place], [address] COMPREHENSIVE METABOLIC Collected: 06/28/2018 Status: F Source: [place] PROFIL 8:02 AM [facility] REPOSITORY TYPE CODE TESTS RESULT OUT OF RANGE REFERENCE UNITS LAB L501.0100 74-106 mg/dL High GLU 134 Result Comment: Fasting Glucose result greater than or equal to 126 mg/dL suggests DIABETES MELLITUS per A.D.A. criteria. Please note revised GLUCOSE reference range effective 2017. LAB L501.1000 7-18 mg/dL High BUN 28 LAB L501.1100 0.70-1.30 mg/dL Normal CREAT,SERUM 1.15 Result Comment: The validity of the calculated GFR AND GFRAA in patients over 70 years has not been determined. Clinical correlation is essential. LAB L501.1110 >60 mL/min Normal EST GFR 68 Result Comment: Non- GFR Calc LAB L501.1115 >60 mL/min Normal EST GFR - AA 82 Result Comment: GFR Calc LAB L501.1300 10-20 RATIO High BUN/CRE 24.3 LAB L501.1500 6.4-8.2 g/dL T Normal PROT 7.3 LAB L501.1800 3.2-5.0 g/dL Normal ALB 3.7 LAB L501.1950 2.2-4.2 g/dL Normal GLOB 3.6 LAB L501.2000 0.9-2.4 RATIO Normal A/G 1.0 LAB L501.2200 8.5-10.1 mg/dL CA Normal 8.8 LAB L501.4100 15-37 U/L Normal AST 28 LAB L501.4305 45-117 U/L Normal ALK P 109 LAB L501.4405 16-61 U/L Normal ALT 46 LAB L501.4600 0.20-1.00 mg/dL T Normal BILI 1.00 LAB L501.5300 136-145 mmol/L NA Normal 140 LAB L501.5600 3.5-5.1 mmol/L K Normal 4.5 LAB L501.5900 98-107 mmol/L CL Normal 106 LAB L501.6100 21.0-32.0 mmol/L Normal CO2 28.0 LAB L501.6200 5-15 Normal GAP 6 Performed By: #### L500.4050 #### [facility] [address] [place], [address] HEMOGLOBIN A1C Collected: 06/28/2018 Status: F Source: [place] 8:02 AM [facility] REPOSITORY TYPE CODE TESTS RESULT OUT OF RANGE REFERENCE UNITS LAB L501.9985 4.2-6.3 % High HGB A1C 7.3 Performed By: #### L501.9985 #### [facility] [address] [place], [address] PROGRESS Observed: 01/15/2018 Status: COMPLETED Source: [place] 9:03 AM [facility] REPOSITORY HNO ID: [id number] Author: Jose Luis Miranda Service: (none) Author Type: Physician Type: Progress Notes Filed: 01/15/2018 9:15 AM Note Text: This note was created using [employer]riter. Subjective Abdirizak Figueroa is a 62 year old male was here for follow up with his . He mainly needed refills. Fatigue was ongoing, more attributed to chronic insomnia from fibromyalgia. He tended to self adjust his trazodone and venlafaxine depending on how he is feeling. His other issues were stable. He woke up with painless blood in his left ear a few weeks ago. He had chronic pain but was mainly bothered by left thumb pain. He continued with prostatism as well and tamsulosin did not help. Review of Systems Constitutional: Negative. HENT: Positive for ear discharge. Negative for ear pain. Respiratory: Negative. Cardiovascular: Negative. Gastrointestinal: Negative. Genitourinary: Positive for decreased urine volume and difficulty urinating. Negative for dysuria. Musculoskeletal: Positive for arthralgias. ACTIVE PROBLEM LIST Displacement of Cervical Intervertebral Disc Without Myelopathy Fibromyalgia Generalized Osteoarthritis Rosacea Other Hyperlipidemia Copd With Chronic Bronchitis (Hcc) Lumbosacral Neuritis Constipation Hearing Loss of Both Ears Cad (Coronary Artery Disease) Tubular Adenoma of Colon Impaired Fasting Glucose Gastroesophageal Reflux Disease With Esophagitis Bph With Obstruction/Lower Urinary Tract Symptoms Obesity, Class I, Bmi 30-34.9 Objective BP 142/76 (BP Site: Right Arm, BP Position: Sitting, BP Cuff Size: Regular Adult) Pulse 72 Temp 36.8 ?C (98.3 ?F) (Left Tympanic) Resp 16 Wt 110.2 kg (243 lb) BMI 34.87 kg/m? Physical Exam Constitutional: No distress. HENT: Left Ear: Tympanic membrane, external ear and ear canal normal. Cardiovascular: Normal heart sounds. Pulmonary/Chest: Breath sounds normal. Abdominal: Soft. Musculoskeletal: He exhibits no edema. Assessment and Plan 1. Insomnia, unspecified type - ICD9: 780.52, ICD10: G47.00 (primary diagnosis) Try taking 150 mg for a few nights. - TRAZODONE 50 MG TABLET 2. Gastroesophageal reflux disease with esophagitis - ICD9: 530.11, ICD10: K21.0 Controlled. - PANTOPRAZOLE 40 MG TABLET,DELAYED RELEASE 3. Fibromyalgia - ICD9: 729.1, ICD10: M79.7 Reviewed. - TRAZODONE 50 MG TABLET - VENLAFAXINE ER 75 MG CAPSULE,EXTENDED RELEASE 24 HR - GABAPENTIN 300 MG CAPSULE 4. BPH with obstruction/lower urinary tract symptoms - ICD9: 600.01, 599.69, ICD10: N40.1, N13.8 - CONSULT TO UROLOGY 5. Obesity, Class I, BMI 30-34.9 - ICD9: 278.00, ICD10: E66.9 Weight loss recommended. 6. 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 Risks: Possible side effects include GI upset, bleeding. Possible interactions: Aleve, stop this. Warnings: Possible increased risk of heart disease with any NSAID. Options: include:referral to orthopedics for injection of thumb. Cost: generic. Duration: senior living if effective. - FLURBIPROFEN 100 MG TABLET MD QUENTIN HookerOV Observed: 01/15/2018 Status: COMPLETED Source: [place] 8:00 AM [facility] REPOSITORY Office Visit (INTMWS) ABDIRIZAK FIGUEROA ([id number]) 1955 M NFR Date Time Provider Department 01/15/18 8:00 AM JOSE LUIS MIRANDA INTMWS During your visit today, we recorded the following information about you: Temperature Pulse Respiration Blood pressure 98.3 degrees 72/minute 16/minute 142/76 Weight 110.2 kg Jose Luis Miranda MD 01/15/2018 9:15 AM Signed This note was created using [employer]. Subjective Abdirizak Figueroa is a 62 year old male was here for follow up with his . He mainly needed refills. Fatigue was ongoing, more attributed to chronic insomnia from fibromyalgia. He tended to self adjust his trazodone and venlafaxine depending on how he is feeling. His other issues were stable. He woke up with painless blood in his left ear a few weeks ago. He had chronic pain but was mainly bothered by left thumb pain. He continued with prostatism as well and tamsulosin did not help. Review of Systems Constitutional: Negative. HENT: Positive for ear discharge. Negative for ear pain. Respiratory: Negative. Cardiovascular: Negative. Gastrointestinal: Negative. Genitourinary: Positive for decreased urine volume and difficulty urinating. Negative for dysuria. Musculoskeletal: Positive for arthralgias. ACTIVE PROBLEM LIST Displacement of Cervical Intervertebral Disc Without Myelopathy Fibromyalgia Generalized Osteoarthritis Rosacea Other Hyperlipidemia Copd With Chronic Bronchitis (Hcc) Lumbosacral Neuritis Constipation Hearing Loss of Both Ears Cad (Coronary Artery Disease) Tubular Adenoma of Colon Impaired Fasting Glucose Gastroesophageal Reflux Disease With Esophagitis Bph With Obstruction/Lower Urinary Tract Symptoms Obesity, Class I, Bmi 30-34.9 Objective BP 142/76 (BP Site: Right Arm, BP Position: Sitting, BP Cuff Size: Regular Adult) Pulse 72 Temp 36.8 ?C (98.3 ?F) (Left Tympanic) Resp 16 Wt 110.2 kg (243 lb) BMI 34.87 kg/m? Physical Exam Constitutional: No distress. HENT: Left Ear: Tympanic membrane, external ear and ear canal normal. Cardiovascular: Normal heart sounds. Pulmonary/Chest: Breath sounds normal. Abdominal: Soft. Musculoskeletal: He exhibits no edema. Assessment and Plan 1. Insomnia, unspecified type - ICD9: 780.52, ICD10: G47.00 (primary diagnosis) Try taking 150 mg for a few nights. - TRAZODONE 50 MG TABLET 2. Gastroesophageal reflux disease with esophagitis - ICD9: 530.11, ICD10: K21.0 Controlled. - PANTOPRAZOLE 40 MG TABLET,DELAYED RELEASE 3. Fibromyalgia - ICD9: 729.1, ICD10: M79.7 Reviewed. - TRAZODONE 50 MG TABLET - VENLAFAXINE ER 75 MG CAPSULE,EXTENDED RELEASE 24 HR - GABAPENTIN 300 MG CAPSULE 4. BPH with obstruction/lower urinary tract symptoms - ICD9: 600.01, 599.69, ICD10: N40.1, N13.8 - CONSULT TO UROLOGY 5. Obesity, Class I, BMI 30-34.9 - ICD9: 278.00, ICD10: E66.9 Weight loss recommended. 6. Degenerative arthritis of thumb, left - ICD9: 715.34, ICD10: M18.12 Benefits: Medication may help arthritis pain in the short term and in the senior living. Risks: Possible side effects include GI upset, bleeding. Possible interactions: Aleve, stop this. Warnings: Possible increased risk of heart disease with any NSAID. Options: include:referral to orthopedics for injection of thumb. Cost: generic. Duration: senior living if effective. - FLURBIPROFEN 100 MG TABLET Jose Luis Miranda MD Referring Provider: JOSE LUIS MIRANDA [[id number]] Allergies As of Date: 01/15/2018 Noted Allergy Reaction ADHESIVE TAPE (ROSINS) 10/15/2014 9 - Itching CONTRAST DYE 07/28/2009 Comments: possible FD AND C BLUE NO.1 07/28/2009 SERTRALINE 01/14/2004 Comments: zoloft, hot, elevated BP Date Reviewed: 01/15/2018 Reviewed by: Kori Moura LPN - Fully Assessed Reason for Visit: F/U 6 Month [444] Primary Visit Diagnosis:Insomnia, unspecified type [G47.00] Other Visit Diagnoses:Gastroesophageal reflux disease with esophagitis [K21.0] Fibromyalgia [M79.7] BPH with obstruction/lower urinary tract symptoms [N40.1, N13.8] Obesity, Class I, BMI 30-34.9 [E66.9] Degenerative arthritis of thumb, left [M18.12] Order(s):pantoprazole DR (PROTONIX) 40 mg tabletTake 1 tablet by mouth daily before breakfast. Take on empty stomach, 1/2 hr before meal.Disp: 90 tabletRfl: 3 traZODone (DESYREL) 50 mg tabletTake 1-2 tablets by mouth daily at bedtime.Disp: 180 tabletRfl: 3 venlafaxine ER (EFFEXOR XR) 75 mg 24 hr capsuleTake 2 capsules by mouth once daily.Disp: 60 capsuleRfl: 11 Flurbiprofen 100 mg tabletTake 1 tablet by mouth twice daily. For arthritis. Take with food.Disp: 60 tabletRfl: 0 CONSULT TO UROLOGY [9022] Order #: [id number]: 1 Prescriptions as of 01/15/2018 Sig: PANTOPRAZOLE 40 MG TABLET,DEL* Take 1 tablet by mouth daily * TRAZODONE 50 MG TABLET Take 1-2 tablets by mouth ladan* VENLAFAXINE ER 75 MG CAPSULE,* Take 2 capsules by mouth once* GABAPENTIN 300 MG CAPSULE Take 1 capsule by mouth twice* ALBUTEROL SULFATE HFA 90 MCG/* Inhale 2 Puffs as instructed * FLUTICASONE 50 MCG/ACTUATION * Use 2 Sprays in each nostril * MULTIVITAMIN TABLET Take 1 tablet by mouth once d* ATORVASTATIN 80 MG TABLET Take 1 tablet by mouth daily * HYDROCODONE 5 MG-ACETAMINOPHE* Take 1 tablet by mouth every * CYCLOBENZAPRINE 10 MG TABLET Take 1 tablet by mouth every * * ASPIRIN 81 MG TABLET,DELAYED * Take 1 tablet by mouth once d* FLURBIPROFEN 100 MG TABLET Take 1 tablet by mouth twice * Problem List As Of Date 01/15/2018 Noted Resolved CERVICAL DISC DISPLACMNT [M50.20] INVALID FOR* Fibromyalgia [M79.7] INVALID FOR* Generalized osteoarthritis [M15.9] INVALID FOR* Dysthymic disorder [F34.1] 07/17/2017 More... Rosacea [L71.9] More... More... Other hyperlipidemia [E78.4] COPD with chronic bronchitis (HCC) [J44.9] Other malaise and fatigue [R53.81, R53.83] 04/12/2016 Other specified disease of hair and hair follic* 11/04/2014 Headache(784.0) [R51] INVALID FOR*01/15/2018 Lumbosacral neuritis [M54.17] INVALID FOR* More... Diabetes mellitus [E11.9] INVALID FOR*09/04/2012 Constipation [K59.00] INVALID FOR* GERD (gastroesophageal reflux disease) [K21.9] INVALID FOR*07/17/2017 Hearing loss of both ears [H91.93] More... Pain in joint, shoulder region [M25.519] INVALID FOR*04/12/2016 Laboratory test [Z01.89] INVALID FOR*11/04/2014 More... CAD (coronary artery disease) [I25.10] INVALID FOR* More... Sore throat (viral) [J02.9] INVALID FOR*11/04/2014 More... Tubular adenoma of colon [D12.6] INVALID FOR* Impaired fasting glucose [R73.01] INVALID FOR* Calculus of gallbladder without cholecystitis w*INVALID FOR*01/15/2018 Gastroesophageal reflux disease with esophagiti*INVALID FOR* Hemorrhoids, internal [K64.8] INVALID FOR*01/15/2018 More... Bright red rectal bleeding [K62.5] INVALID FOR*07/17/2017 More... History of colonic polyps [Z86.010] INVALID FOR*07/17/2017 More... BPH with obstruction/lower urinary tract sympto*INVALID FOR* Obesity, Class I, BMI 30-34.9 [E66.9] INVALID FOR* Prescriptions ordered this encounter Disp Refills Start End PANTOPRAZOLE 40 MG TABLET,DELAYED RE* 90 t* 3 01/15/2018 Route: ORAL Sig: Take 1 tablet by mouth daily before breakfast. Take on empty stomach, 1/2 hr before meal. TRAZODONE 50 MG TABLET 180 * 3 01/15/2018 Route: ORAL Sig: Take 1-2 tablets by mouth daily at bedtime. VENLAFAXINE ER 75 MG CAPSULE,EXTENDE* 60 c* 11 01/15/2018 Route: ORAL Sig: Take 2 capsules by mouth once daily. FLURBIPROFEN 100 MG TABLET 60 t* 0 01/15/2018 Route: ORAL Sig: Take 1 tablet by mouth twice daily. For arthritis. Take with food. Medications Discontinued During This Encounter pantoprazole DR (PROTONIX) 40 mg tab* 90 t* 3 12/22/2016 01/15/2018 Route: ORAL Sig: Take 1 tablet by mouth daily before breakfast. Take on empty stomach, 1/2 hr before meal. Disc: Reason for discontinue is not on file. traZODone (DESYREL) 50 mg tablet 180 * 3 11/10/2016 01/15/2018 Sig: TAKE ONE TO TWO TABLETS BY MOUTH AT BEDTIME NEEDED FOR SEDATION Disc: Reason for discontinue is not on file. venlafaxine ER (EFFEXOR XR) 75 mg 24* 60 c* 11 01/13/2017 01/15/2018 Route: ORAL Sig: Take 2 capsules by mouth once daily. Disc: Reason for discontinue is not on file. gabapentin (NEURONTIN) 300 mg capsule 10/25/2017 01/15/2018 Class: Med Update Sig: Take 1 capsule morning and afternoon and 2 capsules at bedtime. Prescribed by pain management. Patient taking differently: 300 mg twice daily as needed. Take 1 capsule morning and afternoon and 2 capsules at bedtime. Prescribed by pain management. Disc: Reason for discontinue is not on file. naproxen sodium (ALEVE) 220 mg tablet 07/17/2017 01/15/2018 Class: OTC Route: ORAL Sig: Take 2 tablets by mouth once daily. TAKE WITH FOOD Disc: Changing Therapy/Dosage Form Disposition: Return in about 6 months (around 07/17/2018). Follow-up and Disposition History Recorded Encounter Status:Closed by JOSE LUIS MIRANDA MD on 01/15/18 TOM Observed: 01/02/2018 Status: COMPLETED Source: [place] 12:00 AM [facility] REPOSITORY Patient Outreach (INTMWH) ABDIRIZAK FIGUEROA ([id number]) 1955 M NFR Date Time Provider Department 01/02/18 MIRANDAJOSE LUIS VIDAL [facility] During your visit today, we recorded the following information about you: Allergies As of Date: 01/02/2018 Noted Allergy Reaction ADHESIVE TAPE (ROSINS) 10/15/2014 9 - Itching CONTRAST DYE 07/28/2009 Comments: possible FD AND C BLUE NO.1 07/28/2009 SERTRALINE 01/14/2004 Comments: zoloft, hot, elevated BP Date Reviewed: 10/25/2017 Reviewed by: Gladys Little Gaming Table Operator - Fully Assessed Visit Diagnosis:Medication management [Z79.899] Order(s):ALBUMIN/CREAT RATIO RND UR [SQUACR] Order #: [id number] FUTURE HGB A1C [[id number]] Order #: [id number] FUTURE Prescriptions as of 01/02/2018 Sig: ALBUTEROL SULFATE HFA 90 MCG/* Inhale 2 Puffs as instructed * X GABAPENTIN 300 MG CAPSULE Take 1 capsule morning and af* Patient taking differently: 300 mg twice daily as needed.* FLUTICASONE 50 MCG/ACTUATION * Use 2 Sprays in each nostril * MULTIVITAMIN TABLET Take 1 tablet by mouth once d* X NAPROXEN SODIUM 220 MG TABLET Take 2 tablets by mouth once * ATORVASTATIN 80 MG TABLET Take 1 tablet by mouth daily * X VENLAFAXINE ER 75 MG CAPSULE,* Take 2 capsules by mouth once* X PANTOPRAZOLE 40 MG TABLET,DEL* Take 1 tablet by mouth daily * X TRAZODONE 50 MG TABLET TAKE ONE TO TWO TABLETS BY MO* HYDROCODONE 5 MG-ACETAMINOPHE* Take 1 tablet by mouth every * CYCLOBENZAPRINE 10 MG TABLET Take 1 tablet by mouth every * * ASPIRIN 81 MG TABLET,DELAYED * Take 1 tablet by mouth once d* Problem List As Of Date 01/02/2018 Noted Resolved CERVICAL DISC DISPLACMNT [M50.20] INVALID FOR* Fibromyalgia [M79.7] INVALID FOR* Generalized osteoarthritis [M15.9] INVALID FOR* Dysthymic disorder [F34.1] 07/17/2017 More... Rosacea [L71.9] More... More... Other hyperlipidemia [E78.49] COPD with chronic bronchitis (HCC) [J44.9] Other malaise and fatigue [R53.81, R53.83] 04/12/2016 Other specified disease of hair and hair follic* 11/04/2014 HEADACHE [R51] INVALID FOR* Lumbosacral neuritis [M54.17] INVALID FOR* More... Diabetes mellitus [E11.9] INVALID FOR*09/04/2012 Constipation [K59.00] INVALID FOR* GERD (gastroesophageal reflux disease) [K21.9] INVALID FOR*07/17/2017 Hearing loss of both ears [H91.93] More... Pain in joint, shoulder region [M25.519] INVALID FOR*04/12/2016 Laboratory test [Z01.89] INVALID FOR*11/04/2014 More... CAD (coronary artery disease) [I25.10] INVALID FOR* More... Sore throat (viral) [J02.9] INVALID FOR*11/04/2014 More... Tubular adenoma of colon [D12.6] INVALID FOR* Impaired fasting glucose [R73.01] INVALID FOR* Calculus of gallbladder without cholecystitis w*INVALID FOR* Gastroesophageal reflux disease with esophagiti*INVALID FOR* Hemorrhoids, internal [K64.8] INVALID FOR* More... Bright red rectal bleeding [K62.5] INVALID FOR*07/17/2017 More... History of colonic polyps [Z86.010] INVALID FOR*07/17/2017 More... BPH with obstruction/lower urinary tract sympto*INVALID FOR* Encounter Status:Closed by [place], PRODUSER on 05/25/18 COMPREHENSIVE METABOLIC Collected: 11/03/2017 Status: F Source: [place] 8:10 AM [facility] [place] REPOSITORY Order Comment: Has Patient had X-rays with Contrast this admission? N TYPE CODE TESTS RESULT OUT OF RANGE REFERENCE UNITS LAB L501.0100 74-106 mg/dL High GLU 111 Result Comment: Fasting Glucose result from 100 to 125 mg/dL suggests IMPAIRED HOMEOSTASIS per A.D.A. criteria. Please note revised GLUCOSE reference range effective 2017. LAB L501.1000 7-18 mg/dL High BUN 25 LAB L501.1100 0.70-1.30 mg/dL Normal CREAT,SERUM 1.05 Result Comment: The validity of the calculated GFR AND GFRAA in patients over 70 years has not been determined. Clinical correlation is essential. LAB L501.1110 >60 mL/min Normal EST GFR 75 Result Comment: Non- GFR Calc LAB L501.1115 >60 mL/min Normal EST GFR - AA 91 Result Comment: GFR Calc LAB L501.1300 10-20 RATIO High BUN/CRE 23.8 LAB L501.1500 6.4-8.2 g/dL T Normal PROT 7.3 LAB L501.1800 3.2-5.0 g/dL Normal ALB 3.9 LAB L501.1950 2.2-4.2 g/dL Normal GLOB 3.4 LAB L501.2000 0.9-2.4 RATIO Normal A/G 1.1 LAB L501.2200 8.5-10.1 mg/dL CA Normal 8.5 LAB L501.4100 15-37 U/L Normal AST 23 LAB L501.4305 45-117 U/L Normal ALK P 100 LAB L501.4405 16-61 U/L Normal ALT 34 Result Comment: Please note revised ALT reference range effective 2017. LAB L501.4600 0.20-1.00 mg/dL Normal T BILI 0.70 LAB L501.5300 136-145 mmol/L Normal NA 140 LAB L501.5600 3.5-5.1 mmol/L Normal K 4.1 LAB L501.5900 98-107 mmol/L Normal CL 106 LAB L501.6100 21.0-32.0 mmol/L Normal CO2 28.0 LAB L501.6200 5-15 Normal GAP 6 Performed By: #### L500.4050, L501.9520, L506.0400 #### [facility] [address] [place], [address] THYROID STIM HORMONE Collected: 11/03/2017 Status: F Source: [place] (TSH) 8:10 AM [facility] [place] REPOSITORY Order Comment: Has Patient had X-rays with Contrast this admission? N TYPE CODE TESTS RESULT OUT OF RANGE REFERENCE UNITS LAB L501.9520 0.358-3.74 uIU/mL Normal TSH 2.13 Performed By: #### L500.4050, L501.9520, L506.0400 #### [facility] [address] [place], [address] T4 FREE DIRECT Collected: 11/03/2017 Status: F Source: [place] 8:10 AM [facility] [place] REPOSITORY Order Comment: Has Patient had X-rays with Contrast this admission? N TYPE CODE TESTS RESULT OUT OF REFERENCE UNITS RANGE LAB L506.0400 0.76-1.46 ng/dL Low T4 FREE 0.66 DIRECT Performed By: #### L500.4050, L501.9520, L506.0400 #### [facility] [address] [place], [address] COMP METABOLIC PANEL Collected: 10/26/2017 Status: F Source: [place] 8:12 AM [facility] REPOSITORY TYPE CODE TESTS RESULT OUT OF REFERENCE UNITS RANGE LAB TP 6.3-8.0 g/dL Test sent to [facility]. Result Comment: Account Credited [facility]IDE LAB ALB 3.9-4.9 g/dL Test Albumin sent to [facility]. Result Comment: Account Credited [facility] LAB CA 8.5-10.2 mg/dL Test Calcium, Total sent to [facility]. Result Comment: Account Credited [facility] LAB TBIL 0.2-1.3 mg/dL Bilirubin, Test Total sent to [facility]. Result Comment: Account Credited [facility] LAB ALKP 36-108 U/L Alkaline Test Phosphatase sent to [facility]. Result Comment: Account Credited [facility] LAB AST 14-40 U/L Test sent AST to [facility]. Result Comment: Account Credited [facility] LAB GLU 74-99 mg/dL Test sent Glucose to [facility]. Result Comment: Account Credited [facility] LAB BUN 9-24 mg/dL Test sent BUN to [facility]. Result Comment: Account Credited [facility] LAB CRET 0.73-1.22 mg/dL Creatinine Test sent to [facility]. Result Comment: Account Credited [facility] LAB NA 136-144 mmol/L Test Sodium sent to [facility]. Result Comment: Account Credited [facility] LAB K 3.7-5.1 mmol/L Test Potassium sent to [facility]. Result Comment: Account Credited [facility] LAB CL 97-105 mmol/L Test Chloride sent to [facility]. Result Comment: Account Credited [facility] LAB CO2 22-30 mmol/L Test sent CO2 to [facility]. Result Comment: Account Credited [facility] LAB AGAP 9-18 mmol/L Test sent Anion Gap to [facility]. Result Comment: Account Credited [facility] LAB ALT 10-54 U/L Test sent ALT to [facility]. Result Comment: Account Credited [facility] LAB GFRAA eGFR- Amer. Test sent to [facility]. Result Comment: Account Credited [facility] LAB GFRNAA . eGFR-All Test sent Other Races to [facility]. Result Comment: Account Credited [facility] LAB GFRPED eGFR-Ped. Test sent Factor to [facility]. Result Comment: Account Credited HIDE Performed By: #### CBCDIF #### [facility] [address] [place], [place] [address] FREE T4 Collected: 10/26/2017 Status: F Source: [place] 8:12 AM [facility] REPOSITORY TYPE CODE TESTS RESULT OUT OF REFERENCE UNITS RANGE LAB FT4 0.9-1.7 ng/dL Test Free sent to [address] Result Comment: Account Credited HIDE Performed By: #### CBCDIF #### [facility] [address] [place], [place] [address] TSH Collected: 10/26/2017 Status: F Source: [place] 8:12 AM [facility] REPOSITORY TYPE CODE TESTS RESULT OUT OF REFERENCE UNITS RANGE LAB TSH 0.400-5.500 uU/mL Test TSH sent to [facility]. Result Comment: Account Credited HIDE Performed By: #### CBCDIF #### [facility] [address] [place], [place] [address] CBC AND DIFFERENTIAL Collected: 10/26/2017 Status: F Source: [place] 8:12 AM [facility] REPOSITORY TYPE CODE TESTS RESULT OUT OF REFERENCE UNITS RANGE LAB WBC 3.70-11.00 k/uL WBC 6.30 LAB RBC 4.20-6.00 m/uL RBC 4.99 LAB HGB 13.0-17.0 g/dL Hemoglobin 14.7 LAB HCT 39.0-51.0 % Hematocrit 46.8 LAB MCV 80.0-100.0 fL MCV 93.8 LAB MCH 26.0-34.0 pG MCH 29.5 LAB MCHC 30.5-36.0 g/dL MCHC 31.4 LAB RDWCV 11.5-15.0 % RDW-CV 13.5 LAB PLTCT 150-400 k/uL Platelet Count 291 LAB MPV 9.0-12.7 fL Low MPV 8.9 LAB ANEUT % Neut% 55.0 LAB AANEUT 1.45-7.50 k/uL Abs Neut 3.45 LAB ALYMP % Lymph% 29.7 LAB AALYMP 1.00-4.00 k/uL Abs Lymph 1.87 LAB AMONO % Stearns% 8.4 LAB AAMONO <0.87 k/uL Abs Stearns 0.53 LAB AEOS % Eosin% 6.3 LAB AAEOS <0.46 k/uL Abs Eosin 0.40 LAB ABASO % Baso% 0.6 LAB AABASO <0.11 k/uL Abs Baso 0.04 Performed By: #### CBCDIF #### [facility] [address] [place], [place] [address] PROGRESS Observed: 10/25/2017 Status: COMPLETED Source: [place] 2:21 PM [facility] [place] REPOSITORY HNO ID: [id number] Author: Saira (Damon) Older Service: (none) Author Type: Nurse Practitioner Type: Progress Notes Filed: 10/25/2017 3:11 PM Note Text: CC: Patient presents with: wants labs done for blood sugar: lost balance no fall shortness of breath more frequently: stress test done and passed per pt fatigue more often than usual HPI Abdirizak Figueroa is a 62 year old male who presents today for fatigue, worsening leg pain and increased SOB with minimal exertion. Fatigue and SOB: Started in July when he had rectal bleeding. Colonoscopy done, no active bleeding and polyps biopsied, benign. Fatigue has gotten progressively worse. Positive for lightheadedness, balance is off, insomnia. No snoring or witnessed apnea. Recently had appointment with his globe changer on 09/19. EKG and stress test done due to fatigue and SOB. Both tests were normal, globe changer does not feel these symptoms are cardiac. History of chronic bronchitis. Leg pain: Described as deep ache that wakes him up at night. Feet with numbness/tingling. History of restless leg syndrome and fibromyalgia. Goes to pain management who is currently treating with Gabapentin, Flexeril, and Hydrocodone. Had addressed worsening pain with pian management, started him on Savella but patient was unable to tolerate the side effects. Has appointment tomorrow and will let him know then. REVIEW OF SYSTEMS General: no fevers, no change in appetite, no significant changes in weight. Alternates between chills and sweats. HEENT: no changes in hearing, no visual changes Neck: no lumps, no pain and no swelling Respiratory: no cough, no wheezing, no hemoptysis. Positive for SOB with minimal exertion. Cardiovascular: no chest pain, no chest pressure, no palpitations and no swelling GI: Negative for abdominal discomfort, blood in stools or black stools, change in bowel habit, nausea, vomiting, problem swallowing : Negative for dysuria, hematuria and Nocturia 2 times a night. Decreased stream, hesitancy and dribbling chronic. Musculoskeletal: Negative for joint pain or swelling Skin: Positive for rash to face, chest and back that is itchy. Chronic rash on chest. Worsening on face. New rash on back. History of eczema Endocrine: no hair loss and no dry skin Psych: Denies depression and anxiety. No more stress than usual. States he is still interested in his usual activities like fishing but is just too exhausted to do them. Neurologic: no memory loss, no syncope, no confusion. positive for forgetfulness. No history of CVA or TIA. PAST MEDICAL HISTORY Diagnosis Date - Asthma - CAD (coronary artery disease) 09/04/2012 - Calculus of gallbladder without cholecystitis without obstruction 07/15/2016 - Chronic airway obstruction, not elsewhere classified - Diaphragmatic hernia without mention of obstruction or gangrene Hiatal hernia - Displacement of cervical intervertebral disc without myelopathy 12/10/2003 - Dysthymic disorder Depression (non-psychotic) - Generalized osteoarthrosis, unspecified site - GERD (gastroesophageal reflux disease) 06/28/2010 - Hearing loss of both ears Wears hearing aids - bilateral - Hemorrhoids, internal 06/16/2017 Added automatically from request for surgery [id number] - Impaired fasting glucose 07/15/2016 - Myalgia and myositis, unspecified - Other and unspecified hyperlipidemia - Other forms of migraine - Other malaise and fatigue - Other specified disease of hair and hair follicles - Rosacea - Snoring - Temporomandibular joint disorders, unspecified - Tubular adenoma of colon 10/30/2014 - Unspecified constipation 06/28/2010 PAST SURGICAL HISTORY Procedure Laterality Date - CABG (3) VEIN GRAFTS AND ARTERIAL GRAFT(S) 09/2011 Triple bypass - COLONOS W/REM POLYP SNARE 10/07/14 3 polyps - 2 proximal transverse, 1 distal transverse - COLONOSCOP W/ OR W/O BRSH SPEC 07/06/10 Normal - COLONOSCOP W/ OR W/O BRSH SPEC 06/20/2017 Colonoscopy - EGD W/O BRSH SPECIMEN W/BX 07/06/10 gastritis - EGD W/O BRSH SPECIMEN W/BX 10/07/14 duodenitis, gastritis, esophagitis - EGD W/O BRSH SPECIMEN W/BX 09/13/2016 continued inflammation - HEMORRHOIDECT INTER/EXTER SIMP 2001 - LAMINEC/FACETECT/FORAMIN,LUMBAR 2012 - REMV LENS MATERIAL,PHACOFRAGMT 1999, 2001 Cataract Extraction bilateral - REPAIR ING HERNIA,5+Y/O,REDUCIBL 2003 - left - REPAIR ING HERNIA,5+Y/O,REDUCIBL 2001 2 right - REPAIR UMBILICAL PHYLICIA,5+Y/O,REDUC 2003 with mesh - REVISE MEDIAN N/CARPAL TUNNEL SURG Right 2000 Carpal tunnel decomp right - REVISE MEDIAN N/CARPAL TUNNEL SURG Right 11/2014 Carpal tunnel decomp ALLERGIES Adhesive Tape (Rosins); Contrast Dye; Fd And C Blue No.1; Sertraline MEDICATIONS fluticasone (FLONASE) 50 mcg/actuation nasal spray Use 2 Sprays in each nostril once daily. predniSONE (DELTASONE) 10 mg tablet TAKE BY MOUTH 4 TABLETS DAILY FOR 2 DAYS, THEN 3 TABLETS DAILY FOR 2 DAYS, THEN 2 TABLETS DAILY FOR 2 DAYS, THEN 1 TABLET DAILY FOR 2 DAYS. multivitamin tablet Take 1 tablet by mouth once daily. tamsulosin ER (FLOMAX) 0.4 mg cp24 Take 1 capsule by mouth daily at bedtime. naproxen sodium (ALEVE) 220 mg tablet Take 2 tablets by mouth once daily. TAKE WITH FOOD atorvastatin (LIPITOR) 80 mg tablet Take 1 tablet by mouth daily at bedtime. venlafaxine ER (EFFEXOR XR) 75 mg 24 hr capsule Take 2 capsules by mouth once daily. pantoprazole DR (PROTONIX) 40 mg tablet Take 1 tablet by mouth daily before breakfast. Take on empty stomach, 1/2 hr before meal. traZODone (DESYREL) 50 mg tablet TAKE ONE TO TWO TABLETS BY MOUTH AT BEDTIME NEEDED FOR SEDATION albuterol HFA (VENTOLIN HFA) 90 mcg/actuation inhaler Inhale 2 Puffs as instructed every 4 hours as needed for Wheezing/Shortness of Breath. gabapentin (NEURONTIN) 300 mg capsule Take 1 capsule by mouth three times daily. HYDROcodone-acetaminophen 5-325 mg per tablet Take 1 tablet by mouth every 6 hours as needed. cyclobenzaprine (FLEXERIL) 10 mg tablet Take 1 tablet by mouth every 8 hours as needed. FOR PAIN OR SPASMS aspirin, enteric coated (ASPIR-81) 81 mg EC tablet Take 1 tablet by mouth once daily. FAMILY HISTORY Problem Relation Age of Onset - Paranoid [OTHER] Son - disabilities [OTHER] Son - Diabetes Mother - Hypertension Mother - Heart Father - Coronary Artery Disease Father - Hypertension Father - Hypertension Brother - COPD Brother - Heart Brother - COPD Brother - Diabetes Brother - Coronary Artery Disease Brother - COPD Brother - COPD Sister - COPD Sister Social History Substance Use Topics - Smoking status: Former Smoker Years: 25.00 - Smokeless tobacco: Current User Types: Chew Comment: snuff 1 can a week - Alcohol use 1.0 oz/week Comment: rarely PHYSICAL EXAM BP 142/74 Pulse 68 Temp 36.9 ?C (98.4 ?F) (Temporal Artery) Resp 16 Wt 109.9 kg (242 lb 3.2 oz) SpO2 95% BMI 34.75 kg/m2 General Appearance: well appearing, in no acute distress, alert Pysch: mood and affect broad and appropriate Eyes: PERRLA, EOM's intact, conjunctiva pink and moist, no icterus, sclera white, non-injected Neck: Thyroid normal size and symmetric without palpable nodules, No bruits, Neck supple, No adenopathy Oropharynx: lips normal without lesions, tongue midline and normal, soft palate, uvula, and tonsils normal Lymph nodes: No supraclavicular lymphadenopathy Lungs: Lungs clear to auscultation. No wheezing, rhonchi, rales Heart: RRR without murmur, gallop, or rubs. No ectopy Abdomen: Abdomen soft, non-tender. Bowel sounds normal. No masses, organomegaly Neurological: Negative findings: speech normal, cranial nerves 2-12 intact, muscle strength normal, finger to nose normal, reflexes normal and symmetric, gait normal Ext: no edema in LE bilaterally, good distal pulses Musculoskeletal: No joint swelling or tenderness. Full ROM. No tenderness of legs with palpation. DIABETES SCREEN due on 07/17/2020 COLORECTAL CANCER SCREENING,SEE MODIFIER due on 06/21/2022 LIPID SCREEN due on 07/17/2022 TETANUS due on 03/07/2023 PROSTATE CANCER SCREENING DISCUSSION Completed INFLUENZA Completed HEPATITIS C SCREENING Completed ASSESSMENT/PLAN: 1. Malaise and fatigue - ICD9: 780.79, ICD10: R53.81, R53.83 (primary diagnosis) No alarm symptoms or exam findings. Manager Market does not believe symptoms are cardiac related Work-up with: - CBC + DIFF - COMP METABOLIC PANEL - TSH BLD - T4 FREE/FREE THYROX Follow-up pending results of labs 2. Fibromyalgia - ICD9: 729.1, ICD10: M79.7 Likely cause of pain in legs. Continue with medications as prescribed by pain management, patient will address at appointment tomorrow - GABAPENTIN 300 MG CAPSULE 3. Episodic lightheadedness - ICD9: 780.4, ICD10: R42 See #1 - CBC + DIFF - COMP METABOLIC PANEL - TSH BLD - T4 FREE/FREE THYROX 4. SOB on exertion Possibly secondary to COPD/chronic bronchitis If labs all normal may need to have chest x-ray and PFT's See #1 Prescription instructions reviewed with patient as applicable. Potential red flag symptoms discussed with the patient. Reviewed appropriate action plan to take if red flag symptoms occur. Patient agreeable to treatment plan. Saira Ham, DAMON ARANDA Observed: 10/25/2017 Status: COMPLETED Source: [place] 2:00 PM [facility] REPOSITORY Office Visit (INTMWS) ABDIRIZAK FIGUEROA ([id number]) 1955 M NFR Date Time Provider Department 10/25/17 2:00 PM SAIRA HAM (DAMON) INTMWS During your visit today, we recorded the following information about you: Temperature Pulse Respiration Blood pressure 98.4 degrees 68/minute 16/minute 142/74 Weight 109.9 kg Saira Ham CNP 10/25/2017 3:11 PM Signed CC: Patient presents with: wants labs done for blood sugar: lost balance no fall shortness of breath more frequently: stress test done and passed per pt fatigue more often than usual HPI Abdirizak Figueroa is a 62 year old male who presents today for fatigue, worsening leg pain and increased SOB with minimal exertion. Fatigue and SOB: Started in July when he had rectal bleeding. Colonoscopy done, no active bleeding and polyps biopsied, benign. Fatigue has gotten progressively worse. Positive for lightheadedness, balance is off, insomnia. No snoring or witnessed apnea. Recently had appointment with his globe changer on 09/19. EKG and stress test done due to fatigue and SOB. Both tests were normal, globe changer does not feel these symptoms are cardiac. History of chronic bronchitis. Leg pain: Described as deep ache that wakes him up at night. Feet with numbness/tingling. History of restless leg syndrome and fibromyalgia. Goes to pain management who is currently treating with Gabapentin, Flexeril, and Hydrocodone. Had addressed worsening pain with pian management, started him on Savella but patient was unable to tolerate the side effects. Has appointment tomorrow and will let him know then. REVIEW OF SYSTEMS General: no fevers, no change in appetite, no significant changes in weight. Alternates between chills and sweats. HEENT: no changes in hearing, no visual changes Neck: no lumps, no pain and no swelling Respiratory: no cough, no wheezing, no hemoptysis. Positive for SOB with minimal exertion. Cardiovascular: no chest pain, no chest pressure, no palpitations and no swelling GI: Negative for abdominal discomfort, blood in stools or black stools, change in bowel habit, nausea, vomiting, problem swallowing : Negative for dysuria, hematuria and Nocturia 2 times a night. Decreased stream, hesitancy and dribbling chronic. Musculoskeletal: Negative for joint pain or swelling Skin: Positive for rash to face, chest and back that is itchy. Chronic rash on chest. Worsening on face. New rash on back. History of eczema Endocrine: no hair loss and no dry skin Psych: Denies depression and anxiety. No more stress than usual. States he is still interested in his usual activities like fishing but is just too exhausted to do them. Neurologic: no memory loss, no syncope, no confusion. positive for forgetfulness. No history of CVA or TIA. PAST MEDICAL HISTORY Diagnosis Date - Asthma - CAD (coronary artery disease) 09/04/2012 - Calculus of gallbladder without cholecystitis without obstruction 07/15/2016 - Chronic airway obstruction, not elsewhere classified - Diaphragmatic hernia without mention of obstruction or gangrene Hiatal hernia - Displacement of cervical intervertebral disc without myelopathy 12/10/2003 - Dysthymic disorder Depression (non-psychotic) - Generalized osteoarthrosis, unspecified site - GERD (gastroesophageal reflux disease) 06/28/2010 - Hearing loss of both ears Wears hearing aids - bilateral - Hemorrhoids, internal 06/16/2017 Added automatically from request for surgery [id number] - Impaired fasting glucose 07/15/2016 - Myalgia and myositis, unspecified - Other and unspecified hyperlipidemia - Other forms of migraine - Other malaise and fatigue - Other specified disease of hair and hair follicles - Rosacea - Snoring - Temporomandibular joint disorders, unspecified - Tubular adenoma of colon 10/30/2014 - Unspecified constipation 06/28/2010 PAST SURGICAL HISTORY Procedure Laterality Date - CABG (3) VEIN GRAFTS ANDamp; ARTERIAL GRAFT(S) 09/2011 Triple bypass - COLONOS W/REM POLYP SNARE 10/07/14 3 polyps - 2 proximal transverse, 1 distal transverse - COLONOSCOP W/ OR W/O BRSH SPEC 07/06/10 Normal - COLONOSCOP W/ OR W/O BRSH SPEC 06/20/2017 Colonoscopy - EGD W/O BRSH SPECIMEN W/BX 11/23/10 gastritis - EGD W/O BRSH SPECIMEN W/BX 10/07/14 duodenitis, gastritis, esophagitis - EGD W/O [facility] SPECIMEN W/BX 09/13/2016 continued inflammation - HEMORRHOIDECT INTER/EXTER SIMP 2001 - LAMINEC/FACETECT/FORAMIN,LUMBAR 2012 - REMV LENS MATERIAL,PHACOFRAGMT 1999, 2001 Cataract Extraction bilateral - REPAIR ING HERNIA,5+Y/O,REDUCIBL 2003 - left - REPAIR ING HERNIA,5+Y/O,REDUCIBL 2001 2 right - REPAIR UMBILICAL PHYLICIA,5+Y/O,REDUC 2003 with mesh - REVISE MEDIAN N/CARPAL TUNNEL SURG Right 2000 Carpal tunnel decomp right - REVISE MEDIAN N/CARPAL TUNNEL SURG Right 11/2014 Carpal tunnel decomp ALLERGIES Adhesive Tape (Rosins); Contrast Dye; Fd And C Blue No.1; Sertraline MEDICATIONS fluticasone (FLONASE) 50 mcg/actuation nasal spray Use 2 Sprays in each nostril once daily. predniSONE (DELTASONE) 10 mg tablet TAKE BY MOUTH 4 TABLETS DAILY FOR 2 DAYS, THEN 3 TABLETS DAILY FOR 2 DAYS, THEN 2 TABLETS DAILY FOR 2 DAYS, THEN 1 TABLET DAILY FOR 2 DAYS. multivitamin tablet Take 1 tablet by mouth once daily. tamsulosin ER (FLOMAX) 0.4 mg cp24 Take 1 capsule by mouth daily at bedtime. naproxen sodium (ALEVE) 220 mg tablet Take 2 tablets by mouth once daily. TAKE WITH FOOD atorvastatin (LIPITOR) 80 mg tablet Take 1 tablet by mouth daily at bedtime. venlafaxine ER (EFFEXOR XR) 75 mg 24 hr capsule Take 2 capsules by mouth once daily. pantoprazole DR (PROTONIX) 40 mg tablet Take 1 tablet by mouth daily before breakfast. Take on empty stomach, 1/2 hr before meal. traZODone (DESYREL) 50 mg tablet TAKE ONE TO TWO TABLETS BY MOUTH AT BEDTIME NEEDED FOR SEDATION albuterol HFA (VENTOLIN HFA) 90 mcg/actuation inhaler Inhale 2 Puffs as instructed every 4 hours as needed for Wheezing/Shortness of Breath. gabapentin (NEURONTIN) 300 mg capsule Take 1 capsule by mouth three times daily. HYDROcodone-acetaminophen 5-325 mg per tablet Take 1 tablet by mouth every 6 hours as needed. cyclobenzaprine (FLEXERIL) 10 mg tablet Take 1 tablet by mouth every 8 hours as needed. FOR PAIN OR SPASMS aspirin, enteric coated (ASPIR-81) 81 mg EC tablet Take 1 tablet by mouth once daily. FAMILY HISTORY Problem Relation Age of Onset - Paranoid [OTHER] Son - disabilities [OTHER] Son - Diabetes Mother - Hypertension Mother - Heart Father - Coronary Artery Disease Father - Hypertension Father - Hypertension Brother - COPD Brother - Heart Brother - COPD Brother - Diabetes Brother - Coronary Artery Disease Brother - COPD Brother - COPD Sister - COPD Sister Social History Substance Use Topics - Smoking status: Former Smoker Years: 25.00 - Smokeless tobacco: Current User Types: Chew Comment: snuff 1 can a week - Alcohol use 1.0 oz/week Comment: rarely PHYSICAL EXAM BP 142/74 Pulse 68 Temp 36.9 ?C (98.4 ?F) (Temporal Artery) Resp 16 Wt 109.9 kg (242 lb 3.2 oz) SpO2 95% BMI 34.75 kg/m2 General Appearance: well appearing, in no acute distress, alert Pysch: mood and affect broad and appropriate Eyes: PERRLA, EOM's intact, conjunctiva pink and moist, no icterus, sclera white, non-injected Neck: Thyroid normal size and symmetric without palpable nodules, No bruits, Neck supple, No adenopathy Oropharynx: lips normal without lesions, tongue midline and normal, soft palate, uvula, and tonsils normal Lymph nodes: No supraclavicular lymphadenopathy Lungs: Lungs clear to auscultation. No wheezing, rhonchi, rales Heart: RRR without murmur, gallop, or rubs. No ectopy Abdomen: Abdomen soft, non-tender. Bowel sounds normal. No masses, organomegaly Neurological: Negative findings: speech normal, cranial nerves 2-12 intact, muscle strength normal, finger to nose normal, reflexes normal and symmetric, gait normal Ext: no edema in LE bilaterally, good distal pulses Musculoskeletal: No joint swelling or tenderness. Full ROM. No tenderness of legs with palpation. DIABETES SCREEN due on 07/17/2020 COLORECTAL CANCER SCREENING,SEE MODIFIER due on 06/21/2022 LIPID SCREEN due on 07/17/2022 TETANUS due on 03/07/2023 PROSTATE CANCER SCREENING DISCUSSION Completed INFLUENZA Completed HEPATITIS C SCREENING Completed ASSESSMENT/PLAN: 1. Malaise and fatigue - ICD9: 780.79, ICD10: R53.81, R53.83 (primary diagnosis) No alarm symptoms or exam findings. Manager Market does not believe symptoms are cardiac related Work-up with: - CBC + DIFF - COMP METABOLIC PANEL - TSH BLD - T4 FREE/FREE THYROX Follow-up pending results of labs 2. Fibromyalgia - ICD9: 729.1, ICD10: M79.7 Likely cause of pain in legs. Continue with medications as prescribed by pain management, patient will address at appointment tomorrow - GABAPENTIN 300 MG CAPSULE 3. Episodic lightheadedness - ICD9: 780.4, ICD10: R42 See #1 - CBC + DIFF - COMP METABOLIC PANEL - TSH BLD - T4 FREE/FREE THYROX 4. SOB on exertion Possibly secondary to COPD/chronic bronchitis If labs all normal may need to have chest x-ray and PFT's See #1 Prescription instructions reviewed with patient as applicable. Potential red flag symptoms discussed with the patient. Reviewed appropriate action plan to take if red flag symptoms occur. Patient agreeable to treatment plan. Saira Ham CNP Referring Provider: SELF [[id number]] Allergies As of Date: 10/25/2017 Noted Allergy Reaction ADHESIVE TAPE (ROSINS) 10/15/2014 9 - Itching CONTRAST DYE 07/28/2009 Comments: possible FD AND C BLUE NO.1 07/28/2009 SERTRALINE 01/14/2004 Comments: zoloft, hot, elevated BP Date Reviewed: 10/25/2017 Reviewed by: Gladys Little Gaming Table Operator - Fully Assessed Reason for Visit: wants labs done for blood sugar [Other] Cmt: lost balance no fall shortness of breath more frequently [Other] Cmt: stress test done and passed per pt fatigue more often than usual [Other] Reason For Visit History Recorded Primary Visit Diagnosis:Malaise and fatigue [R53.81, R53.83] Other Visit Diagnoses:Fibromyalgia [M79.7] Episodic lightheadedness [R42] SOB (shortness of breath) on exertion [R06.02] Order(s):gabapentin (NEURONTIN) 300 mg capsuleTake 1 capsule morning and afternoon and 2 capsules at bedtime. Prescribed by pain management.Disp: Rfl: CBC + DIFF [SQCBCDIF] Order #: [id number] FUTURE COMP METABOLIC PANEL [SQCMP] Order #: [id number] FUTURE TSH BLD [SQTSH] Order #: [id number] FUTURE T4 FREE/FREE THYROX [SQFT4] Order #: [id number] FUTURE Prescriptions as of 10/25/2017 Sig: GABAPENTIN 300 MG CAPSULE Take 1 capsule morning and af* FLUTICASONE 50 MCG/ACTUATION * Use 2 Sprays in each nostril * MULTIVITAMIN TABLET Take 1 tablet by mouth once d* NAPROXEN SODIUM 220 MG TABLET Take 2 tablets by mouth once * ATORVASTATIN 80 MG TABLET Take 1 tablet by mouth daily * VENLAFAXINE ER 75 MG CAPSULE,* Take 2 capsules by mouth once* PANTOPRAZOLE 40 MG TABLET,DEL* Take 1 tablet by mouth daily * TRAZODONE 50 MG TABLET TAKE ONE TO TWO TABLETS BY MO* ALBUTEROL SULFATE HFA 90 MCG/* Inhale 2 Puffs as instructed * HYDROCODONE 5 MG-ACETAMINOPHE* Take 1 tablet by mouth every * CYCLOBENZAPRINE 10 MG TABLET Take 1 tablet by mouth every * * ASPIRIN 81 MG TABLET,DELAYED * Take 1 tablet by mouth once d* Problem List As Of Date 10/25/2017 Noted Resolved CERVICAL DISC DISPLACMNT [M50.20] INVALID FOR* Fibromyalgia [M79.7] INVALID FOR* Generalized osteoarthritis [M15.9] INVALID FOR* Dysthymic disorder [F34.1] 07/17/2017 More... Rosacea [L71.9] More... More... Other hyperlipidemia [E78.4] COPD with chronic bronchitis (HCC) [J44.9] Other malaise and fatigue [R53.81, R53.83] 04/12/2016 Other specified disease of hair and hair follic* 11/04/2014 HEADACHE [R51] INVALID FOR* Lumbosacral neuritis [M54.17] INVALID FOR* More... Diabetes mellitus [E11.9] INVALID FOR*09/04/2012 Constipation [K59.00] INVALID FOR* GERD (gastroesophageal reflux disease) [K21.9] INVALID FOR*07/17/2017 Hearing loss of both ears [H91.93] More... Pain in joint, shoulder region [M25.519] INVALID FOR*04/12/2016 Laboratory test [Z01.89] INVALID FOR*11/04/2014 More... CAD (coronary artery disease) [I25.10] INVALID FOR* More... Sore throat (viral) [J02.9] INVALID FOR*11/04/2014 More... Tubular adenoma of colon [D12.6] INVALID FOR* Impaired fasting glucose [R73.01] INVALID FOR* Calculus of gallbladder without cholecystitis w*INVALID FOR* Gastroesophageal reflux disease with esophagiti*INVALID FOR* Hemorrhoids, internal [K64.8] INVALID FOR* More... Bright red rectal bleeding [K62.5] INVALID FOR*07/17/2017 More... History of colonic polyps [Z86.010] INVALID FOR*07/17/2017 More... BPH with obstruction/lower urinary tract sympto*INVALID FOR* Prescriptions ordered this encounter Disp Refills Start End GABAPENTIN 300 MG CAPSULE 10/25/2017 10/25/2018 Class: Med Update Sig: Take 1 capsule morning and afternoon and 2 capsules at bedtime. Prescribed by pain management. Medications Discontinued During This Encounter predniSONE (DELTASONE) 10 mg tablet 20 t* 0 09/20/2017 10/25/2017 Sig: TAKE BY MOUTH 4 TABLETS DAILY FOR 2 DAYS, THEN 3 TABLETS DAILY FOR 2 DAYS, THEN 2 TABLETS DAILY FOR 2 DAYS, THEN 1 TABLET DAILY FOR 2 DAYS. Disc: Reason for discontinue is not on file. tamsulosin ER (FLOMAX) 0.4 mg cp24 30 c* 0 08/04/2017 10/25/2017 Route: ORAL Sig: Take 1 capsule by mouth daily at bedtime. Disc: Reason for discontinue is not on file. gabapentin (NEURONTIN) 300 mg capsule 04/28/2014 10/25/2017 Class: Med Update Route: ORAL Sig: Take 1 capsule by mouth three times daily. Disc: Reason for discontinue is not on file. Encounter Status:Closed by SAIRA HAM CNP on 10/25/17 STRESS REPORT Observed: 10/03/2017 Status: F Source: [place] 3:12 PM [facility] [place] REPOSITORY [facility] [place] [address] MR#: [id number] Acct: [id number] Name: ABDIRIZAK FIGUEROA Rep #: [id number] : 1955 62 From: Momo Costa MD Primary Care: Jose Luis Miranda MD Status: REG CLI Ordering Dr: Sex: Eula C Stress Test Report Date: 10/03/2017 Procedure: Exercise tolerance test Indications: Chest pain; CAD; status post CABG Consent: Per the patient Procedure: The patient exercised on a Everardo protocol for 7 minutes 30 seconds completing stage II and 1 minute 30 seconds of stage III achieving a peak heart rate of 144 bpm (92% predicted maximal heart rate) with a peak blood pressure 184/92 mmHg and a peak MET capacity of 9 METs. The baseline ECG demonstrated normal sinus rhythm. The peak exercise ECG demonstrated no obvious ECG changes. There were no cardiac dysrhythmias pretest, during exercise, or recovery. The functional capacity was considered good. The patient had no complaint of chest discomfort during exercise or recovery. The examination was discontinued secondary to leg discomfort. Impression: 1. Technically adequate (percent predicted maximal heart rate greater than 85%) exercise tolerance test 2. Peak exercise ECG with no obvious ECG changes 3. Good functional capacity This note was generated with [employer] software. It may contain incorrect words, spelling, and punctuation that were not noted in checking the note before signing. 10/03/17 1512 <Electronically signed by Momo Costa MD> Date Momo Costa MD CC: Holly Cohen MD; Jose Luis Miranda MD Date Dictated: 10/03/17 1509 Date Transcribed: 10/03/17 1509 Performance Analyst: PM Signed PROGRESS Observed: 09/20/2017 Status: COMPLETED Source: [place] 12:09 PM [facility] REPOSITORY HNO ID: [id number] Author: Jose Luis Miranda Service: (none) Author Type: Physician Type: Progress Notes Filed: 09/20/2017 2:04 PM Note Text: This note was created using [employer]riter. Subjective Abdirizak Figueroa is a 62 year old male. Abdirizak Figueroa is a 62 year old male who presents with complaint of sinus symptoms, nasal congestion, facial pain/pressure maxillary, post nasal drip, headache- moderate, ear pressure right and cough productive for a month. He had scant epistaxis. He denies fever, nausea, vomiting and diarrhea. Treatments tried include OTC cold medicine with minor relief of symptoms. He was seen last month for sinobronchitis, and the bronchitis resolved, but not sinus symptoms. Review of Systems Per HPI. ACTIVE PROBLEM LIST Displacement of Cervical Intervertebral Disc Without Myelopathy Fibromyalgia Generalized Osteoarthritis Rosacea Other Hyperlipidemia Copd With Chronic Bronchitis (Hcc) Headache(784.0) Lumbosacral Neuritis Constipation Hearing Loss of Both Ears Cad (Coronary Artery Disease) Tubular Adenoma of Colon Impaired Fasting Glucose Calculus of Gallbladder Without Cholecystitis Without Obstruction Gastroesophageal Reflux Disease With Esophagitis Hemorrhoids, Internal Bph With Obstruction/Lower Urinary Tract Symptoms Current Outpatient Prescriptions: fluticasone (FLONASE) 50 mcg/actuation nasal spray Use 2 Sprays in each nostril once daily. multivitamin tablet Take 1 tablet by mouth once daily. tamsulosin ER (FLOMAX) 0.4 mg cp24 Take 1 capsule by mouth daily at bedtime. naproxen sodium (ALEVE) 220 mg tablet Take 2 tablets by mouth once daily. TAKE WITH FOOD atorvastatin (LIPITOR) 80 mg tablet Take 1 tablet by mouth daily at bedtime. venlafaxine ER (EFFEXOR XR) 75 mg 24 hr capsule Take 2 capsules by mouth once daily. pantoprazole DR (PROTONIX) 40 mg tablet Take 1 tablet by mouth daily before breakfast. Take on empty stomach, 1/2 hr before meal. traZODone (DESYREL) 50 mg tablet TAKE ONE TO TWO TABLETS BY MOUTH AT BEDTIME NEEDED FOR SEDATION albuterol HFA (VENTOLIN HFA) 90 mcg/actuation inhaler Inhale 2 Puffs as instructed every 4 hours as needed for Wheezing/Shortness of Breath. gabapentin (NEURONTIN) 300 mg capsule Take 1 capsule by mouth three times daily. HYDROcodone-acetaminophen 5-325 mg per tablet Take 1 tablet by mouth every 6 hours as needed. cyclobenzaprine (FLEXERIL) 10 mg tablet Take 1 tablet by mouth every 8 hours as needed. FOR PAIN OR SPASMS aspirin, enteric coated (ASPIR-81) 81 mg EC tablet Take 1 tablet by mouth once daily. levoFLOXacin (LEVAQUIN) 500 mg tablet Take 1 tablet by mouth once daily for 7 days. predniSONE (DELTASONE) 10 mg tablet TAKE BY MOUTH 4 TABLETS DAILY FOR 2 DAYS, THEN 3 TABLETS DAILY FOR 2 DAYS, THEN 2 TABLETS DAILY FOR 2 DAYS, THEN 1 TABLET DAILY FOR 2 DAYS. No current facility-administered medications for this visit. Objective BP 124/78 (BP Site: Left Arm, BP Position: Sitting, BP Cuff Size: Regular Adult) Pulse 80 Temp 36.6 ?C (97.9 ?F) (Left Tympanic) Resp 20 Wt 108 kg (238 lb) BMI 34.15 kg/m2 Physical Exam Constitutional: No distress. HENT: Right Ear: Ear canal normal. Tympanic membrane is injected. No middle ear effusion. Left Ear: Tympanic membrane and ear canal normal. No middle ear effusion. Nose: Mucosal edema and rhinorrhea present. Right sinus exhibits maxillary sinus tenderness. Right sinus exhibits no frontal sinus tenderness. Left sinus exhibits maxillary sinus tenderness. Left sinus exhibits no frontal sinus tenderness. Mouth/Throat: Mucous membranes are normal. Posterior oropharyngeal erythema present. No oropharyngeal exudate. Cardiovascular: Normal heart sounds. Pulmonary/Chest: No respiratory distress. He has wheezes. He has no rales. Musculoskeletal: He exhibits no edema. Lymphadenopathy: He has no cervical adenopathy. Recent labs reviewed. ASSESSMENT/PLAN: 1. COPD with chronic bronchitis (HCC) - ICD9: 491.20, ICD10: J44.9 (primary diagnosis) Exacerbation. - LEVOFLOXACIN 500 MG TABLET - FLUTICASONE 50 MCG/ACTUATION NASAL SPRAY,SUSPENSION - PREDNISONE 10 MG TABLET 2. Subacute maxillary sinusitis - ICD9: 461.0, ICD10: J01.00 - Will begin treatment with as per antibiotic as written, see orders - Supportive care with plenty of fluids, rest, and analgesia prn. - LEVOFLOXACIN 500 MG TABLET - FLUTICASONE 50 MCG/ACTUATION NASAL SPRAY,SUSPENSION - PREDNISONE 10 MG TABLET 3. Impaired fasting glucose - ICD9: 790.21, ICD10: R73.01 Discussed. Jose Luis Miranda MD PROGRESS Observed: 09/19/2017 Status: COMPLETED Source: [place] 9:33 AM [facility] OTHER CAMPUS REPOSITORY HNO ID: [id number] Author: Holly Cohen Service: (none) Author Type: Physician Type: Progress Notes Filed: 09/19/2017 4:48 PM Note Text: PERTINENT CARDIAC HISTORY AHSD - CABGx3 2011 HTN HL ADHERENCE TO GUIDELINES CASIMIRO-I or ARB for HF with prior LVEF<40 (NQF 0081) - N/A ASA or Plavix for ASHD (NQF 0067) - met Beta jey for ASHD with prior IN or prior LVEF<40 (NQF 0070) - N/A Beta jey for HF with prior LVEF<40 (NQF 0083) - N/A CASIMIRO-I or ARB for ASHD with DM or prior LVEF<40 (NQF 0066) - N/A Statin therapy for ASHD or FHL or DM - met BMI documented and plan if >25 (NQF 0421) - lifestyle recommendation form Tobacco use screening and referral (NQF 0028) - lifestyle recommendation form Recommendation for whole food, plant based diet - lifestyle recommendation form CLINICAL IMPRESSION/PLAN: Abdirizak Figueroa has exercise intolerance which is unexplained. This may be an ischemic equivalent. I recommended that he undergo non- imaging stress test evaluation. This will be arranged for him in the near future. Labs are reviewed. His LDL is not to goal. Plant based, whole food diet is recommended. I have asked him to continue his current medication. His blood pressure has been borderline low and he is relatively intolerant of Casimiro inhibitors. He will continue his high-dose statin and aspirin. He will be seen on a to be arranged basis. If there is increased shortness of breath or if he develops exertional chest discomfort, I have encouraged him to contact me promptly. Written and verbal health teaching given to patient, patient verbalizes understanding and agrees with treatment plan. This note was generated using [employer] voice recognition system, and there may be some incorrect words, spellings, and punctuation that were not noted in checking the note before saving. DIAGNOSIS FOR VISIT: ASHD Hypertension Exercise intolerance HISTORY OF PRESENT ILLNESS Abdirizak Figueroa returns for follow-up of his coronary artery disease. He has had occasional brief, sharp anterior chest pain. This is not related to activity. He has used no nitroglycerin. He had a recent rectal bleed which has resolved. He reports decreased exercise tolerance. He is more short of breath with moderate activity. He denies edema. He's had no syncope, TIAs, amaurosis or claudication. He has had rare palpitations. He has not been as active this winter. ALLERGIES: ALLERGIES Allergen Reactions - Adhesive Tape (Maria Eugenia* Itching - Contrast Dye possible - Cortisone edema, erythema-?not sure of drug name - Fd And C Blue No.1 - Sertraline zoloft, hot, elevated BP CURRENT OUTPATIENT MEDICATIONS: multivitamin tablet Take 1 tablet by mouth once daily. tamsulosin ER (FLOMAX) 0.4 mg cp24 Take 1 capsule by mouth daily at bedtime. naproxen sodium (ALEVE) 220 mg tablet Take 2 tablets by mouth once daily. TAKE WITH FOOD atorvastatin (LIPITOR) 80 mg tablet Take 1 tablet by mouth daily at bedtime. venlafaxine ER (EFFEXOR XR) 75 mg 24 hr capsule Take 2 capsules by mouth once daily. pantoprazole DR (PROTONIX) 40 mg tablet Take 1 tablet by mouth daily before breakfast. Take on empty stomach, 1/2 hr before meal. traZODone (DESYREL) 50 mg tablet TAKE ONE TO TWO TABLETS BY MOUTH AT BEDTIME NEEDED FOR SEDATION albuterol HFA (VENTOLIN HFA) 90 mcg/actuation inhaler Inhale 2 Puffs as instructed every 4 hours as needed for Wheezing/Shortness of Breath. gabapentin (NEURONTIN) 300 mg capsule Take 1 capsule by mouth three times daily. HYDROcodone-acetaminophen 5-325 mg per tablet Take 1 tablet by mouth every 6 hours as needed. cyclobenzaprine (FLEXERIL) 10 mg tablet Take 1 tablet by mouth every 8 hours as needed. FOR PAIN OR SPASMS aspirin, enteric coated (ASPIR-81) 81 mg EC tablet Take 1 tablet by mouth once daily. fluticasone (FLONASE) 50 mcg/actuation nasal spray Use 2 Sprays in each nostril once daily. PAST MEDICAL HISTORY Diagnosis Date - Asthma - CAD (coronary artery disease) 09/04/2012 - Calculus of gallbladder without cholecystitis without obstruction 07/15/2016 - Chronic airway obstruction, not elsewhere classified - Diaphragmatic hernia without mention of obstruction or gangrene Hiatal hernia - Displacement of cervical intervertebral disc without myelopathy 12/10/2003 - Dysthymic disorder Depression (non-psychotic) - Generalized osteoarthrosis, unspecified site - GERD (gastroesophageal reflux disease) 06/28/2010 - Hearing loss of both ears Wears hearing aids - bilateral - Hemorrhoids, internal 06/16/2017 Added automatically from request for surgery [id number] - Impaired fasting glucose 07/15/2016 - Myalgia and myositis, unspecified - Other and unspecified hyperlipidemia - Other forms of migraine - Other malaise and fatigue - Other specified disease of hair and hair follicles - Rosacea - Snoring - Temporomandibular joint disorders, unspecified - Tubular adenoma of colon 10/30/2014 - Unspecified constipation 06/28/2010 PAST SURGICAL HISTORY Procedure Laterality Date - CABG (3) VEIN GRAFTS AND ARTERIAL GRAFT(S) 09/2011 Triple bypass - COLONOS W/REM POLYP SNARE 10/07/14 3 polyps - 2 proximal transverse, 1 distal transverse - COLONOSCOP W/ OR W/O BRSH SPEC 07/06/10 Normal - COLONOSCOP W/ OR W/O BRSH SPEC 06/20/2017 Colonoscopy - EGD W/O BRSH SPECIMEN W/BX 07/06/10 gastritis - EGD W/O BRSH SPECIMEN W/BX 10/07/14 duodenitis, gastritis, esophagitis - EGD W/O BRSH SPECIMEN W/BX 09/13/2016 continued inflammation - HEMORRHOIDECT INTER/EXTER SIMP 2001 - LAMINEC/FACETECT/FORAMIN,LUMBAR 2012 - REMV LENS MATERIAL,PHACOFRAGMT 1999, 2001 Cataract Extraction bilateral - REPAIR ING HERNIA,5+Y/O,REDUCIBL 2003 - left - REPAIR ING HERNIA,5+Y/O,REDUCIBL 2001 2 right - REPAIR UMBILICAL PHYLICIA,5+Y/O,REDUC 2003 with mesh - REVISE MEDIAN N/CARPAL TUNNEL SURG Right 2000 Carpal tunnel decomp right - REVISE MEDIAN N/CARPAL TUNNEL SURG Right 11/2014 Carpal tunnel decomp FAMILY HISTORY Problem Relation Age of Onset - Paranoid [OTHER] Son - disabilities [OTHER] Son - Diabetes Mother - Hypertension Mother - Heart Father - Coronary Artery Disease Father - Hypertension Father - Hypertension Brother - COPD Brother - Heart Brother - COPD Brother - Diabetes Brother - Coronary Artery Disease Brother - COPD Brother - COPD Sister - COPD Sister Social History Marital status: Spouse name: Alethea Years of education: Number of children: 2 Social History Main Topics Smoking status: Former Smoker Packs/day: 0.00 Years: 25.00 Smokeless status: Current User Types: Chew Comment: snuff 1 can a week Alcohol use: Yes 1.0 oz/week Comment: rarely Drug use: No Sexual activity: Yes Partners with: Female REVIEW OF SYSTEMS: General: No chills, fever, weight loss, night sweats. Respiratory: No productive cough. Cardiac: As noted above. GI: No melena. : No dysuria. Musculoskeletal: No myalgias. PHYSICAL EXAMINATION: S/he is alert and in no distress. VITAL SIGNS: BP 120/84 Pulse 73 Ht 5' 10 (1.78m) Wt 240 lb 12.8 oz (109.2kg) BMI 34.55 kg/(m2). SHEENT: Skin is warm and dry. No xanthelasmas appreciated. Pharynx is benign. There is no oral cyanosis. Neck: supple. No adenopathy or thyroid enlargement. Chest: Clear to percussion and auscultation. Trachea is midline. Air entry is equal. There is no chest wall tenderness. Cardiac: Regular rhythm. S1 and S2 are normal. PMI is nondisplaced. There is a soft systolic ejection murmur. Carotids are brisk without bruits. JVP is less than 10 cm. Abdomen: Soft and nontender. Obesity compromises examination. There are no pulsatile masses or bruits. No liver enlargement. Bowel sounds are active. Extremities: No edema. Pulses are intact and symmetrical. No clubbing or cyanosis. No femoral bruits. Neurologic: Grossly normal motor and sensory. S/he is alert and oriented x4. Recent labs were reviewed. Hemoglobin is normal. Renal function is normal. LDL was 103. EKG shows sinus rhythm. There are no significant repolarization changes. No change is seen since 09/19/16. Electronically Signed: Holly Cohen MD September 19, 2017 9:33 AM CC:Jose Luis Miranda MD CNOV Observed: 09/19/2017 Status: COMPLETED Source: [place] 9:00 AM [facility] OTHER CAMPUS REPOSITORY Office Visit (AGCARDWST) ABDIRIZAK FIGUEROA ([id number]) 1955 M NFR Date Time Provider Department 09/19/17 9:00 AM HOLLY COHEN AGCARDWSSudarshan During your visit today, we recorded the following information about you: Pulse Blood pressure Weight Height 73/minute 120/84 109.2 kg 1.778 m Holly Cohen MD 09/19/2017 4:48 PM Signed PERTINENT CARDIAC HISTORY AHSD - CABGx3 2011 HTN HL ADHERENCE TO GUIDELINES CASIMIRO-I or ARB for HF with prior LVEFANDlt;40 (NQF 0081) - N/A ASA or Plavix for ASHD (NQF 0067) - met Beta jey for ASHD with prior IN or prior LVEFANDlt;40 (NQF 0070) - N/A Beta jey for HF with prior LVEFANDlt;40 (NQF 0083) - N/A CASIMIRO-I or ARB for ASHD with DM or prior LVEFANDlt;40 (NQF 0066) - N/A Statin therapy for ASHD or FHL or DM - met BMI documented and plan if ANDgt;25 (NQF 0421) - lifestyle recommendation form Tobacco use screening and referral (NQF 0028) - lifestyle recommendation form Recommendation for whole food, plant based diet - lifestyle recommendation form CLINICAL IMPRESSION/PLAN: Abdirizak Figueroa has exercise intolerance which is unexplained. This may be an ischemic equivalent. I recommended that he undergo non-imaging stress test evaluation. This will be arranged for him in the near future. Labs are reviewed. His LDL is not to goal. Plant based, whole food diet is recommended. I have asked him to continue his current medication. His blood pressure has been borderline low and he is relatively intolerant of Casimiro inhibitors. He will continue his high-dose statin and aspirin. He will be seen on a to be arranged basis. If there is increased shortness of breath or if he develops exertional chest discomfort, I have encouraged him to contact me promptly. Written and verbal health teaching given to patient, patient verbalizes understanding and agrees with treatment plan. This note was generated using [employer] voice recognition system, and there may be some incorrect words, spellings, and punctuation that were not noted in checking the note before saving. DIAGNOSIS FOR VISIT: ASHD Hypertension Exercise intolerance HISTORY OF PRESENT ILLNESS Abdirizak Figueroa returns for follow-up of his coronary artery disease. He has had occasional brief, sharp anterior chest pain. This is not related to activity. He has used no nitroglycerin. He had a recent rectal bleed which has resolved. He reports decreased exercise tolerance. He is more short of breath with moderate activity. He denies edema. He's had no syncope, TIAs, amaurosis or claudication. He has had rare palpitations. He has not been as active this winter. ALLERGIES: ALLERGIES Allergen Reactions - Adhesive Tape (Maria Eugenia* Itching - Contrast Dye possible - Cortisone edema, erythema-?not sure of drug name - Fd And C Blue No.1 - Sertraline zoloft, hot, elevated BP CURRENT OUTPATIENT MEDICATIONS: multivitamin tablet Take 1 tablet by mouth once daily. tamsulosin ER (FLOMAX) 0.4 mg cp24 Take 1 capsule by mouth daily at bedtime. naproxen sodium (ALEVE) 220 mg tablet Take 2 tablets by mouth once daily. TAKE WITH FOOD atorvastatin (LIPITOR) 80 mg tablet Take 1 tablet by mouth daily at bedtime. venlafaxine ER (EFFEXOR XR) 75 mg 24 hr capsule Take 2 capsules by mouth once daily. pantoprazole DR (PROTONIX) 40 mg tablet Take 1 tablet by mouth daily before breakfast. Take on empty stomach, 1/2 hr before meal. traZODone (DESYREL) 50 mg tablet TAKE ONE TO TWO TABLETS BY MOUTH AT BEDTIME NEEDED FOR SEDATION albuterol HFA (VENTOLIN HFA) 90 mcg/actuation inhaler Inhale 2 Puffs as instructed every 4 hours as needed for Wheezing/Shortness of Breath. gabapentin (NEURONTIN) 300 mg capsule Take 1 capsule by mouth three times daily. HYDROcodone-acetaminophen 5-325 mg per tablet Take 1 tablet by mouth every 6 hours as needed. cyclobenzaprine (FLEXERIL) 10 mg tablet Take 1 tablet by mouth every 8 hours as needed. FOR PAIN OR SPASMS aspirin, enteric coated (ASPIR-81) 81 mg EC tablet Take 1 tablet by mouth once daily. fluticasone (FLONASE) 50 mcg/actuation nasal spray Use 2 Sprays in each nostril once daily. PAST MEDICAL HISTORY Diagnosis Date - Asthma - CAD (coronary artery disease) 09/04/2012 - Calculus of gallbladder without cholecystitis without obstruction 07/15/2016 - Chronic airway obstruction, not elsewhere classified - Diaphragmatic hernia without mention of obstruction or gangrene Hiatal hernia - Displacement of cervical intervertebral disc without myelopathy 12/10/2003 - Dysthymic disorder Depression (non-psychotic) - Generalized osteoarthrosis, unspecified site - GERD (gastroesophageal reflux disease) 06/28/2010 - Hearing loss of both ears Wears hearing aids - bilateral - Hemorrhoids, internal 06/16/2017 Added automatically from request for surgery [id number] - Impaired fasting glucose 07/15/2016 - Myalgia and myositis, unspecified - Other and unspecified hyperlipidemia - Other forms of migraine - Other malaise and fatigue - Other specified disease of hair and hair follicles - Rosacea - Snoring - Temporomandibular joint disorders, unspecified - Tubular adenoma of colon 10/30/2014 - Unspecified constipation 06/28/2010 PAST SURGICAL HISTORY Procedure Laterality Date - CABG (3) VEIN GRAFTS ANDamp; ARTERIAL GRAFT(S) 09/2011 Triple bypass - COLONOS W/REM POLYP SNARE 10/07/14 3 polyps - 2 proximal transverse, 1 distal transverse - COLONOSCOP W/ OR W/O [facility] SPEC 07/06/10 Normal - COLONOSCOP W/ OR W/O BRS SPEC 06/20/2017 Colonoscopy - EGD W/O BRS SPECIMEN W/BX 07/06/10 gastritis - EGD W/O [facility] SPECIMEN W/BX 10/07/14 duodenitis, gastritis, esophagitis - EGD W/O BRS SPECIMEN W/BX 09/13/2016 continued inflammation - HEMORRHOIDECT INTER/EXTER SIMP 2001 - LAMINEC/FACETECT/FORAMIN,LUMBAR 2012 - REMV LENS MATERIAL,PHACOFRAGMT 1999, 2001 Cataract Extraction bilateral - REPAIR ING HERNIA,5+Y/O,REDUCIBL 2003 - left - REPAIR ING HERNIA,5+Y/O,REDUCIBL 2001 2 right - REPAIR UMBILICAL PHYLICIA,5+Y/O,REDUC 2003 with mesh - REVISE MEDIAN N/CARPAL TUNNEL SURG Right 2000 Carpal tunnel decomp right - REVISE MEDIAN N/CARPAL TUNNEL SURG Right 11/2014 Carpal tunnel decomp FAMILY HISTORY Problem Relation Age of Onset - Paranoid [OTHER] Son - disabilities [OTHER] Son - Diabetes Mother - Hypertension Mother - Heart Father - Coronary Artery Disease Father - Hypertension Father - Hypertension Brother - COPD Brother - Heart Brother - COPD Brother - Diabetes Brother - Coronary Artery Disease Brother - COPD Brother - COPD Sister - COPD Sister Social History Marital status: Spouse name: Alethea Years of education: Number of children: 2 Social History Main Topics Smoking status: Former Smoker Packs/day: 0.00 Years: 25.00 Smokeless status: Current User Types: Chew Comment: snuff 1 can a week Alcohol use: Yes 1.0 oz/week Comment: rarely Drug use: No Sexual activity: Yes Partners with: Female REVIEW OF SYSTEMS: General: No chills, fever, weight loss, night sweats. Respiratory: No productive cough. Cardiac: As noted above. GI: No melena. : No dysuria. Musculoskeletal: No myalgias. PHYSICAL EXAMINATION: S/he is alert and in no distress. VITAL SIGNS: BP 120/84 Pulse 73 Ht 5' 10ANDquot; (1.78m) Wt 240 lb 12.8 oz (109.2kg) BMI 34.55 kg/(m2). SHEENT: Skin is warm and dry. No xanthelasmas appreciated. Pharynx is benign. There is no oral cyanosis. Neck: supple. No adenopathy or thyroid enlargement. Chest: Clear to percussion and auscultation. Trachea is midline. Air entry is equal. There is no chest wall tenderness. Cardiac: Regular rhythm. S1 and S2 are normal. PMI is nondisplaced. There is a soft systolic ejection murmur. Carotids are brisk without bruits. JVP is less than 10 cm. Abdomen: Soft and nontender. Obesity compromises examination. There are no pulsatile masses or bruits. No liver enlargement. Bowel sounds are active. Extremities: No edema. Pulses are intact and symmetrical. No clubbing or cyanosis. No femoral bruits. Neurologic: Grossly normal motor and sensory. S/he is alert and oriented x4. Recent labs were reviewed. Hemoglobin is normal. Renal function is normal. LDL was 103. EKG shows sinus rhythm. There are no significant repolarization changes. No change is seen since 09/19/16. Electronically Signed: Holly Cohen MD September 19, 2017 9:33 AM CC:MD Holly Hooker MD 09/19/2017 9:33 AM Signed LIFESTYLE CHANGE A healthy lifestyle is the most important component of your overall treatment plan. Please give serious thought to the following areas and commit to making senior living changes. EAT A WHOLE FOOD, PLANT BASED DIET The nutrition your body gets is more important than the medicine you take. What matters most is the overall way you eat. We encourage you to minimize the use of animal products (which include dairy and all meats except fatty fish) and use whole, unprocessed plant foods to provide your protein, vitamins and other nutrients. We have a lot of information to share with you on this topic. We also hold Shared Medical Appointments, where you can come visit with Dr. Cohen in the company of other patients and spend over an hour talking about the challenges of changing the way you eat. This is not a ANDquot;dietANDquot;. It is a way of life that you will keep with you. EXERCISE REGULARLY It is not important to spend hours in the gym, lifting weights and perspiring heavily. A total of 2-3 hours per week of aerobic (causing you to be moderately short of breath) exercise is sufficient to improve your health. Talk to us before you begin a new exercise program, if you have heart disease or experience shortness of breath or chest pain. REDUCE STRESS Chronic emotional and physical stress leads to disease. Ways of reducing stress include meditation, visualization, prayer, yoga and other forms of relaxation therapy. Consistency is the dillard. Find a technique that works for you and do it every day. CULTIVATE RELATIONSHIPS Loneliness and isolation have a major negative impact on health. Seek out others who can love, care for and nurture you. Avoid hurtful relationships. MAINTAIN IDEAL BODY WEIGHT The best way to do this is to do all the things above. Our bodies naturally find the right weight if we keep moving and feed ourselves the right food. If your BMI is greater than 25, we strongly recommend a referral to a weight management program. Please speak to us or your family physician about available programs. AVOID NICOTINE IN ALL FORMS This includes all tobacco products, whether chewed, smoked, vaped, or rubbed on the skin. Smoking cessation programs, which can make use of tobacco substitutes, medications to suppress cravings and behavior management, are available. Please contact your family physician about programs in your area. 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) [I25.708] Other Visit Diagnoses:ASHD (arteriosclerotic heart disease) [I25.10] ROB (dyspnea on exertion) [R06.09] Order(s):ECG B/O W INTERP (MED OFFICE) [ECG06] Order #: [id number] STRESS REGULAR W/TREAD [[id number]] Order #: [id number]: 1 Prescriptions as of 09/19/2017 Sig: MULTIVITAMIN TABLET Take 1 tablet by mouth once d* TAMSULOSIN 0.4 MG CAPSULE Take 1 capsule by mouth daily* NAPROXEN SODIUM 220 MG TABLET Take 2 tablets by mouth once * ATORVASTATIN 80 MG TABLET Take 1 tablet by mouth daily * VENLAFAXINE ER 75 MG CAPSULE,* Take 2 capsules by mouth once* PANTOPRAZOLE 40 MG TABLET,DEL* Take 1 tablet by mouth daily * TRAZODONE 50 MG TABLET TAKE ONE TO TWO TABLETS BY MO* ALBUTEROL SULFATE HFA 90 MCG/* Inhale 2 Puffs as instructed * GABAPENTIN 300 MG CAPSULE Take 1 capsule by mouth three* HYDROCODONE 5 MG-ACETAMINOPHE* Take 1 tablet by mouth every * CYCLOBENZAPRINE 10 MG TABLET Take 1 tablet by mouth every * * ASPIRIN 81 MG TABLET,DELAYED * Take 1 tablet by mouth once d* FLUTICASONE 50 MCG/ACTUATION * Use 2 Sprays in each nostril * Medication notes this encounter FLUTICASONE 50 MCG/ACTUATION NASAL SPRAY,SUSPENSION >> Fredrick Leary MA 09/19/2017 9:04 AM >> FREDRICK LEARY MA Sep 19, 2017 9:04 AM Not using Problem List As Of Date 09/19/2017 Noted Resolved CERVICAL DISC DISPLACMNT [M50.20] INVALID FOR* Fibromyalgia [M79.7] INVALID FOR* Generalized osteoarthritis [M15.9] INVALID FOR* Dysthymic disorder [F34.1] 07/17/2017 More... Rosacea [L71.9] More... More... Other hyperlipidemia [E78.4] COPD with chronic bronchitis (HCC) [J44.9] Other malaise and fatigue [R53.81, R53.83] 04/12/2016 Other specified disease of hair and hair follic* 11/04/2014 HEADACHE [R51] INVALID FOR* Lumbosacral neuritis [M54.17] INVALID FOR* More... Diabetes mellitus [E11.9] INVALID FOR*09/04/2012 Constipation [K59.00] INVALID FOR* GERD (gastroesophageal reflux disease) [K21.9] INVALID FOR*07/17/2017 Hearing loss of both ears [H91.93] More... Pain in joint, shoulder region [M25.519] INVALID FOR*04/12/2016 Laboratory test [Z01.89] INVALID FOR*11/04/2014 More... CAD (coronary artery disease) [I25.10] INVALID FOR* More... Sore throat (viral) [J02.9] INVALID FOR*11/04/2014 More... Tubular adenoma of colon [D12.6] INVALID FOR* Impaired fasting glucose [R73.01] INVALID FOR* Calculus of gallbladder without cholecystitis w*INVALID FOR* Gastroesophageal reflux disease with esophagiti*INVALID FOR* Hemorrhoids, internal [K64.8] INVALID FOR* More... Bright red rectal bleeding [K62.5] INVALID FOR*07/17/2017 More... History of colonic polyps [Z86.010] INVALID FOR*07/17/2017 More... BPH with obstruction/lower urinary tract sympto*INVALID FOR* Other instructions from your clinician: LIFESTYLE CHANGE A healthy lifestyle is the most important component of your overall treatment plan. Please give serious thought to the following areas and commit to making senior living changes. EAT A WHOLE FOOD, PLANT BASED DIET The nutrition your body gets is more important than the medicine you take. What matters most is the overall way you eat. We encourage you to minimize the use of animal products (which include dairy and all meats except fatty fish) and use whole, unprocessed plant foods to provide your protein, vitamins and other nutrients. We have a lot of information to share with you on this topic. We also hold Shared Medical Appointments, where you can come visit with Dr. Cohen in the company of other patients and spend over an hour talking about the challenges of changing the way you eat. This is not a diet. It is a way of life that you will keep with you. EXERCISE REGULARLY It is not important to spend hours in the gym, lifting weights and perspiring heavily. A total of 2-3 hours per week of aerobic (causing you to be moderately short of breath) exercise is sufficient to improve your health. Talk to us before you begin a new exercise program, if you have heart disease or experience shortness of breath or chest pain. REDUCE STRESS Chronic emotional and physical stress leads to disease. Ways of reducing stress include meditation, visualization, prayer, yoga and other forms of relaxation therapy. Consistency is the dillard. Find a technique that works for you and do it every day. CULTIVATE RELATIONSHIPS Loneliness and isolation have a major negative impact on health. Seek out others who can love, care for and nurture you. Avoid hurtful relationships. MAINTAIN IDEAL BODY WEIGHT The best way to do this is to do all the things above. Our bodies naturally find the right weight if we keep moving and feed ourselves the right food. If your BMI is greater than 25, we strongly recommend a referral to a weight management program. Please speak to us or your family physician about available programs. AVOID NICOTINE IN ALL FORMS This includes all tobacco products, whether chewed, smoked, vaped, or rubbed on the skin. Smoking cessation programs, which can make use of tobacco substitutes, medications to suppress cravings and behavior management, are available. Please contact your family physician about programs in your area. Encounter Status:Closed by HOLLY COHEN MD on 09/19/17 PROGRESS Observed: 08/18/2017 Status: COMPLETED Source: [place] 8:52 AM [facility] REPOSITORY HNO ID: [id number] Author: Saira (Damon) Older Service: (none) Author Type: Nurse Practitioner Type: Progress Notes Filed: 08/18/2017 9:14 AM Note Text: CC: Patient presents with: Acute Visit: sinus pressure, congestion, cough, postnasal drainage with bloodx 2 weeks diarrhea and nausea: x 2 days HPI: Abdirizak Figueroa is a 62 year old male who presents to the office with complaint of respiratory symptoms for two weeks. Today associated symptoms includes nasal congestion, facial pain/pressure maxillary, headache, ear pain left , cough- productive with white sputum, teeth ache and dyspnea. He denies fever. Treatments tried include OTC cold medicine with no relief of symptoms. Patient confirms a history of exercise induced asthma and COPD on problem list. Non-smoker. REVIEW OF SYSTEMS Cardiovascular: no chest pain, no chest pressure, no palpitations and no swelling The patient's pmh, medications, allergies, and past visits are reviewed. PHYSICAL EXAM: BP 120/80 Pulse 84 Temp (!) 35.8 ?C (96.4 ?F) (Temporal Artery) Resp 18 Wt 109.8 kg (242 lb) SpO2 96% BMI 34.72 kg/m2 General appearance: tired/ill appearing, in no acute distress Head: Normocephalic Eyes: conjunctiva pink and moist, no icterus, sclera white, non-injected Ears: Right ear: Normal, TM - clear with good landmarks. Left ear: Normal, TM - clear with good landmarks Nose: purulent rhinorrhea, mucosa erythematous and swollen, sinus tenderness over maxillary sinuses bilateral. Oropharynx:No erythema, exudates or tonsillar hypertrophy. Neck:supple and no adenopathy Heart: Negative. RRR without obvious murmur, gallop, or rubs. No ectopy. Lungs: diminished breath sounds, wheezing posterior lung field, no rales or rhonchi ASSESSMENT/PLAN: 1. Acute non-recurrent sinusitis, unspecified location - ICD9: 461.9, ICD10: J01.90 (primary diagnosis) - Will begin treatment with Augmentin 875 mg PO BID for 7 days - The patient should also be given OTC cough and cold meds as needed for the first 5-7 days of treatment. - Supportive care with plenty of fluids, rest, and analgesia prn. - Follow up in 3-5 days if symptoms persist or worsen. 2. Acute bronchitis, unspecified organism - ICD9: 466.0, ICD10: J20.9 - Encouraged to increase fluids, expect to cough 2-3 weeks - Pharmacologic treatment: Prednisone and albuterol as needed - Follow up if symptoms do not resolve or they worsen with onset of onset of new fever and localized chest pains Saira Older, [employer] Prescription instructions reviewed with patient as applicable. Potential red flag symptoms discussed with the patient. Reviewed appropriate action plan to take if red flag symptoms occur. Patient agreeable to treatment plan. CNOV Observed: 08/18/2017 Status: COMPLETED Source: [place] 8:40 AM [facility] REPOSITORY Office Visit (INTMWS) ABDIRIZAK FIGUEROA ([id number]) 1955 M NFR Date Time Provider Department 08/18/17 8:40 AM SAIRA HAM (DAMON) INTMWS During your visit today, we recorded the following information about you: Temperature Pulse Respiration Blood pressure 96.4 degrees 84/minute 18/minute 120/80 Weight 109.8 kg Saira Ham CNP 08/18/2017 9:14 AM Signed CC: Patient presents with: Acute Visit: sinus pressure, congestion, cough, postnasal drainage with bloodx 2 weeks diarrhea and nausea: x 2 days HPI: Abdirizak Figueroa is a 62 year old male who presents to the office with complaint of respiratory symptoms for two weeks. Today associated symptoms includes nasal congestion, facial pain/pressure maxillary, headache, ear pain left , cough- productive with white sputum, teeth ache and dyspnea. He denies fever. Treatments tried include OTC cold medicine with no relief of symptoms. Patient confirms a history of exercise induced asthma and COPD on problem list. Non-smoker. REVIEW OF SYSTEMS Cardiovascular: no chest pain, no chest pressure, no palpitations and no swelling The patient's pmh, medications, allergies, and past visits are reviewed. PHYSICAL EXAM: BP 120/80 Pulse 84 Temp (!) 35.8 ?C (96.4 ?F) (Temporal Artery) Resp 18 Wt 109.8 kg (242 lb) SpO2 96% BMI 34.72 kg/m2 General appearance: tired/ill appearing, in no acute distress Head: Normocephalic Eyes: conjunctiva pink and moist, no icterus, sclera white, non-injected Ears: Right ear: Normal, TM - clear with good landmarks. Left ear: Normal, TM - clear with good landmarks Nose: purulent rhinorrhea, mucosa erythematous and swollen, sinus tenderness over maxillary sinuses bilateral. Oropharynx:No erythema, exudates or tonsillar hypertrophy. Neck:supple and no adenopathy Heart: Negative. RRR without obvious murmur, gallop, or rubs. No ectopy. Lungs: diminished breath sounds, wheezing posterior lung field, no rales or rhonchi ASSESSMENT/PLAN: 1. Acute non-recurrent sinusitis, unspecified location - ICD9: 461.9, ICD10: J01.90 (primary diagnosis) - Will begin treatment with Augmentin 875 mg PO BID for 7 days - The patient should also be given OTC cough and cold meds as needed for the first 5-7 days of treatment. - Supportive care with plenty of fluids, rest, and analgesia prn. - Follow up in 3-5 days if symptoms persist or worsen. 2. Acute bronchitis, unspecified organism - ICD9: 466.0, ICD10: J20.9 - Encouraged to increase fluids, expect to cough 2-3 weeks - Pharmacologic treatment: Prednisone and albuterol as needed - Follow up if symptoms do not resolve or they worsen with onset of onset of new fever and localized chest pains Saira Ham CNP Prescription instructions reviewed with patient as applicable. Potential red flag symptoms discussed with the patient. Reviewed appropriate action plan to take if red flag symptoms occur. Patient agreeable to treatment plan. Saira Ham CNP 08/18/2017 9:00 AM Signed 1.) Get more rest than you usually do - this will speed your recovery. If you push hard with your usual busy schedule, you will be sicker longer. 2.) Drink a lot of water - enough to make you urinate every 2-3 hours (your urine should be a light yellow color). This helps thin the phlegm and sooth the airways. Gatorade (G2) is less in sugar and replaces your electrolytes if not eating well. 3.) Run a cool mist humidifier in your bedroom on high with the door closed. This is a natural way to decongest, and it helps lessen scratchy throats, nasal stuffiness and coughs. A good brand is DNsolution, which can be found at [employer] or [employer]. This is especially important if you do not have a humidifier on your furnace. 4.) For those without blood pressure concerns, take Sudafed as a decongestant (decreases stuffiness-lets drain), but realize that you will need to take it every 4-6 hours for several days. The lower dose is generally better tolerated (30mg)... Some people can make feel fast heart rate/jittery. You also may try anti-allergy pill like Claritin(loratidine) 10mg or patsy, benadryl (makes sleepy) over the counter as directed to help with drippy nose. Mucinex 600-1200mg twice daily(plain) may help thin secretions so they are easier to cough up. Those with high blood pressure and not with prostate problems can try [id number] Coricidin HBP for congestion. 5.) For nasal/sinus congestion saline nasal spray and/or Netti Pot may be beneficial 5.) Take ibuprofen or acetominophen every 4-6 hours for pain/aches as needed if not contraindicated for you. Antibiotic as directed per prescription If you should breakout in a rash, stop the medicine and call the office. Any antibiotic has the potential to cause diarrhea due to alteration in the normal bacterial oumar of the gut. This can be reduced by eating yogurt with active cultures or taking probiotics daily while on the medication. If diarrhea becomes severe (watery, large volumes or more than 3-4/day) call the office. Women may experience yeast vaginitis due to alteration in the vaginal oumar. Symptoms include vaginal itching, irritation, and often a clumpy white discharge. If this occurs, there are several effective over the counter remedies available, including one-dose treatments. If these are unsuccessful, call the office. Antibiotics may interfer with control. If you are on oral contraceptives, use another form of protection (condoms, foams, jellies, diaphragm) throught the end of whatever pill pack you are on in 10 days. If you are not improving in 3-5 days or are worsening follow up with the office at [phone] Referring Provider: SELF [[id number]] Allergies As of Date: 08/18/2017 Noted Allergy Reaction ADHESIVE TAPE (ROSINS) 10/15/2014 9 - Itching CONTRAST DYE 07/28/2009 Comments: possible CORTISONE 06/16/2004 Comments: edema, erythema-?not sure of drug name FD AND C BLUE NO.1 07/28/2009 SERTRALINE 01/14/2004 Comments: zoloft, hot, elevated BP Date Reviewed: 08/18/2017 Reviewed by: Gladys Little Gaming Table Operator - Fully Assessed Reason for Visit: Acute Visit [896] Cmt: sinus pressure, congestion, cough, postnasal drainage with bloodx 2 weeks diarrhea and nausea [Other] Cmt: x 2 days Reason For Visit History Recorded Primary Visit Diagnosis:Acute non-recurrent sinusitis, unspecified location [J01.90] Other Visit Diagnosis:Acute bronchitis, unspecified organism [J20.9] Order(s):predniSONE (DELTASONE) 20 mg tabletTake 2 tablets by mouth once daily for 5 days.Disp: 10 tabletRfl: 0 amoxicillin-clavulanic acid (AUGMENTIN) 875-125 mg per tabletTake 1 tablet by mouth twice daily for 7 days.Disp: 14 tabletRfl: 0 Prescriptions as of 08/18/2017 Sig: MULTIVITAMIN TABLET Take 1 tablet by mouth once d* TAMSULOSIN 0.4 MG CAPSULE Take 1 capsule by mouth daily* NAPROXEN SODIUM 220 MG TABLET Take 2 tablets by mouth once * ATORVASTATIN 80 MG TABLET Take 1 tablet by mouth daily * VENLAFAXINE ER 75 MG CAPSULE,* Take 2 capsules by mouth once* PANTOPRAZOLE 40 MG TABLET,DEL* Take 1 tablet by mouth daily * TRAZODONE 50 MG TABLET TAKE ONE TO TWO TABLETS BY MO* ALBUTEROL SULFATE HFA 90 MCG/* Inhale 2 Puffs as instructed * FLUTICASONE 50 MCG/ACTUATION * Use 2 Sprays in each nostril * GABAPENTIN 300 MG CAPSULE Take 1 capsule by mouth three* HYDROCODONE 5 MG-ACETAMINOPHE* Take 1 tablet by mouth every * CYCLOBENZAPRINE 10 MG TABLET Take 1 tablet by mouth every * * ASPIRIN 81 MG TABLET,DELAYED * Take 1 tablet by mouth once d* PREDNISONE 20 MG TABLET Take 2 tablets by mouth once * AMOXICILLIN 875 MG-POTASSIUM * Take 1 tablet by mouth twice * Problem List As Of Date 08/18/2017 Noted Resolved CERVICAL DISC DISPLACMNT [M50.20] INVALID FOR* Fibromyalgia [M79.7] INVALID FOR* Generalized osteoarthritis [M15.9] INVALID FOR* Dysthymic disorder [F34.1] 07/17/2017 More... Rosacea [L71.9] More... More... Other hyperlipidemia [E78.4] COPD with chronic bronchitis (HCC) [J44.9] Other malaise and fatigue [R53.81, R53.83] 04/12/2016 Other specified disease of hair and hair follic* 11/04/2014 HEADACHE [R51] INVALID FOR* Lumbosacral neuritis [M54.17] INVALID FOR* More... Diabetes mellitus [E11.9] INVALID FOR*09/04/2012 Constipation [K59.00] INVALID FOR* GERD (gastroesophageal reflux disease) [K21.9] INVALID FOR*07/17/2017 Hearing loss of both ears [H91.93] More... Pain in joint, shoulder region [M25.519] INVALID FOR*04/12/2016 Laboratory test [Z01.89] INVALID FOR*11/04/2014 More... CAD (coronary artery disease) [I25.10] INVALID FOR* More... Sore throat (viral) [J02.9] INVALID FOR*11/04/2014 More... Tubular adenoma of colon [D12.6] INVALID FOR* Impaired fasting glucose [R73.01] INVALID FOR* Calculus of gallbladder without cholecystitis w*INVALID FOR* Gastroesophageal reflux disease with esophagiti*INVALID FOR* Hemorrhoids, internal [K64.8] INVALID FOR* More... Bright red rectal bleeding [K62.5] INVALID FOR*07/17/2017 More... History of colonic polyps [Z86.010] INVALID FOR*07/17/2017 More... BPH with obstruction/lower urinary tract sympto*INVALID FOR* Other instructions from your clinician: 1.) Get more rest than you usually do - this will speed your recovery. If you push hard with your usual busy schedule, you will be sicker longer. 2.) Drink a lot of water - enough to make you urinate every 2-3 hours (your urine should be a light yellow color). This helps thin the phlegm and sooth the airways. Gatorade (G2) is less in sugar and replaces your electrolytes if not eating well. 3.) Run a cool mist humidifier in your bedroom on high with the door closed. This is a natural way to decongest, and it helps lessen scratchy throats, nasal stuffiness and coughs. A good brand is Vicks, which can be found at [employer] or [facility]. This is especially important if you do not have a humidifier on your furnace. 4.) For those without blood pressure concerns, take Sudafed as a decongestant (decreases stuffiness-lets drain), but realize that you will need to take it every 4-6 hours for several days. The lower dose is generally better tolerated (30mg)... Some people can make feel fast heart rate/jittery. You also may try anti-allergy pill like Claritin(loratidine) 10mg or patsy, benadryl (makes sleepy) over the counter as directed to help with drippy nose. Mucinex 600-1200mg twice daily(plain) may help thin secretions so they are easier to cough up. Those with high blood pressure and not with prostate problems can try [id number] Coricidin HBP for congestion. 5.) For nasal/sinus congestion saline nasal spray and/or Netti Pot may be beneficial 5.) Take ibuprofen or acetominophen every 4-6 hours for pain/aches as needed if not contraindicated for you. Antibiotic as directed per prescription If you should breakout in a rash, stop the medicine and call the office. Any antibiotic has the potential to cause diarrhea due to alteration in the normal bacterial oumar of the gut. This can be reduced by eating yogurt with active cultures or taking probiotics daily while on the medication. If diarrhea becomes severe (watery, large volumes or more than 3-4/day) call the office. Women may experience yeast vaginitis due to alteration in the vaginal oumar. Symptoms include vaginal itching, irritation, and often a clumpy white discharge. If this occurs, there are several effective over the counter remedies available, including one-dose treatments. If these are unsuccessful, call the office. Antibiotics may interfer with control. If you are on oral contraceptives, use another form of protection (condoms, foams, jellies, diaphragm) throught the end of whatever pill pack you are on in 10 days. If you are not improving in 3-5 days or are worsening follow up with the office at [phone] Prescriptions ordered this encounter Disp Refills Start End PREDNISONE 20 MG TABLET 10 t* 0 08/18/2017 08/23/2017 Route: ORAL Sig: Take 2 tablets by mouth once daily for 5 days. AMOXICILLIN 875 MG-POTASSIUM CLAVULA* 14 t* 0 08/18/2017 08/25/2017 Route: ORAL Sig: Take 1 tablet by mouth twice daily for 7 days. Encounter Status:Closed by SAIRA HAM CNP on 08/18/17 PSA,TOTAL - ANNUAL Collected: 08/03/2017 Status: F Source: [place] SCREEN 9:00 AM [facility] [place] REPOSITORY TYPE CODE TESTS RESULT OUT OF RANGE REFERENCE UNITS LAB [id number] 0.00-4.00 ng/mL Normal PSA,TOT 0.82 SCREEN Result Comment: This test was performed using the TPSA assay method for the [employer] chemistry system. Values obtained with different assay methods cannot be used interchangably. When changing PSA assays in the course of monitoring a patient, additional sequential testing should be carried out to confirm baseline values. Performed By: #### [id number] #### [facility], [address] PSA, SCREENING Collected: 08/03/2017 Status: F Source: [place] 9:00 AM [facility] REPOSITORY TYPE CODE TESTS RESULT OUT OF REFERENCE UNITS RANGE LAB PSAS 0.00-2.59 ng/mL PSA, Test Screening sent to [facility]. Result Comment: Account Credited ALLERGIES ALLERGIES DATE TYPE / CODE NAME / CODE REACTION SEVERITY SOURCE 06/12/2017 Drug adhesive Rash Unknown [place] Allergy/416 tape/[id number]([facility] 614131([facility] ED CT) Repository 10/15/2014 Chemical/42 ADHESIVE TAPE ITCHING [facility] [id number](SNO (ROSINS) [facility] [place] [facility]) Repository 07/28/2009 DRUG CONTRAST DYE [facility] INGREDI/419 [place] 686672(SNOM Repository ED CT) 07/28/2009 DRUG/[id number] FD AND C BLUE [facility] 003(SNOMED NO.[address] [facility] [place] [address]) Repository 06/16/2004 DRUG CORTISONE [facility] INGREDI/419 [place] 949526(SNOM Repository ED CT) 01/14/2004 DRUG SERTRALINE [facility] INGREDI/419 [place] 893578(SNOM Repository ED CT) NG/[id number] ADHESIVE TAPE [facility] 6(SNOMED (ROSINS) [facility] CT) Repository NG/[id number] CONTRAST DYE [facility] 6(SNOMED Written System CT) Repository NG/[id number] CORTISONE [facility] 6(Ra Pharm[employer]OMED Written System CT) Repository NG/[id number] FD AND C BLUE [facility] 6(SNOMED NO.[address]) Repository NG/[id number] SERTRALINE [facility] 6([employer] System CT) Repository ENCOUNTERS ENCOUNTERS ADMIT/DISCHARGE ACCOUNT NUMBER ADMITTING ENCOUNTER LOCATION SOURCE CLASS 07/17/2018/07/18/20 [id number] Ambulatory [address] Repository 07/10/2018/07/10/20 [id number] Ambulatory [address] Repository 07/10/2018 [id number] Ambulatory [facility] ding:LABSPEC Repository 06/28/2018 [id number] Ambulatory [facility] ding:LABSPEC Repository 06/28/2018/06/28/20 [id number] Ambulatory [address] Repository 01/15/2018/01/17/20 [id number] Ambulatory [address] Repository 11/03/2017 [id number] Ambulatory [facility] ding:LABSPEC Repository 10/26/2017/10/27/19 [id number] Ambulatory [address] Repository 10/25/2017/10/26/19 [id number] Ambulatory [address] Repository 10/03/2017 [id number] Ambulatory [facility] ding:CVS Repository 10/03/2017 [id number] Ambulatory [facility]: [facility] Repository 09/20/2017/09/20/19 [id number] Ambulatory [address] [place] Repository 09/19/2017/09/19/19 [id number] Ambulatory [address] [place] Repository 09/19/2017/09/19/19 [id number] Ambulatory [facility] [address] [place] [address] System MEDICAL Repository CENTERBuildi ng:CAGWS 08/18/2017/08/18/19 [id number] Ambulatory [address] Repository 08/03/2017 [id number] Ambulatory [facility] ding:LABSPEC Repository 08/03/2017/08/03/[id number] Repository PAYERS PAYERS ENCOUNTER GUARANTOR PAYER SUBSCRIBER SOURCE 07/10/2018 ABDIRIZAK Ch Primary ABDIRIZAK [id number] Insurance:[facility] C[facility] [place]: Community [place] MEDIC[id number] Number: Repository [address]Twt: 330 [id number] [phone] (HP) Date:6593-29-79XO [address], [place] [address]WZ: 07/10/2018 Secondary NOT GIVENUNK [place] Insurance:SELF PAY [facility] Number: Effective Repository Date:2018-07-10 06/28/2018 ABDIRIZAK Ch Primary ABDIRIZAK [id number] [facility] [place]: Community PROSPECT MEDICAREPolicy [id number] Number: Repository [address]Cgn: 330 [id number] [phone] () Date:8549-74-99QH [address], [place] [address]QP: 06/28/2018 Secondary NOT GIVENUNK [place] Insurance:SELF PAY [facility] Number: Effective Repository Date:2018-06-28 11/03/2017 Abdirizak Ch Primary Abdirizak [id number] Insurance[facility] DuncanDOB: Community [place] MEDICAREPolicy [id number] Number: Repository [address]Pal: 330 [id number] [phone] (HP) Date:7812-06-61OP [address], [place] [address]IK: 11/03/2017 Secondary NOT GIVENUNK [place] Insurance:SELF PAY [facility] Number: Effective Repository Date:2017-11-03 10/03/2017 Abdirizak Ch Primary Abdirizak [id number] Insurance[facility] DuncanDOB: Community [place] MEDICAREPolicy [id number] [place] Number: Repository [address]Yex: 330 [id number] [phone] (HP) Date:8440-36-68YC [address] [place] [address]QJ: 10/03/2017 Secondary NOT GIVENUNK [place] Insurance:SELF PAY [facility] Number: Effective Repository Date:2017-09-19 10/03/2017 Abdirizak Ch Primary Abdirizak [id number] Insurance:[facility]: [place] MEDICAREPolicy [id number] [place], [place] Number: Repository [address]Oab: 330 [id number] [phone] (HP) Date:3267-88-62TU [address] [place] [address]KG: 10/03/2017 Secondary NOT GIVENUNK [place] Insurance:SELF PAY [facility] Number: Effective Repository Date:2017-10-03 09/19/2017 ABDIRIZAK Ch Primary Insurance[place] ABDIRIZAK [place] [facility]: MEDICAREPolicy DUNCANDOB: Health System S Number: [id number] [id number] [place] Date: [address]Zwg: (HP) 08/03/2017 Abdirizak Ch Primary Abdirizak [id number] Insurance:[facility]: [place] MEDICAREPolicy [id number] [place] Number: Repository [address]Zec: 330 [id number] [phone] (HP) Date:7805-29-43RK [address] [place] [address]XJ: 08/03/2017 Secondary NOT GIVENUNK [place] Insurance:SELF PAY [facility] Number: Effective Repository Date:2017-08-03
== END ==
PROVIDERS: Family Provider Internal Medicine; PCP Internal Medicine; Referring Provider Internal Medicine; Visit Provider Internal Medicine
DX: Z79.899 Other long term (current) drug therapy (principal)
CPT/HCPCS: 80061

== ENCOUNTER 2018-09-03 07:33 | Day surgery (SDC) | payer MEDICARE, SELFPAY ==
[2018-09-03 08:06] VITALS: BP 126/75; PULSE 79; RESP 14; TEMP 36.7; O2SAT 96; BMI 33.3
[2018-09-03 08:36] LABS: Bedside Glucose 125 mg/dL (70-110)
--- NOTE | 2018-09-03 09:00 | RAD_ITS ---
STUDY: CAUDAL BLOCK. REASON FOR EXAM: Male, 63 years old. Chronic low back pain. FLUOROSCOPY TIME (if supplied): (0:12) minutes/seconds. 2 coned-down views were obtained intraoperatively. TECHNIQUE: A caudal block was performed. COMPARISON: None. FINDINGS: The spinal needle is seen along the posterior midportion of the sacrum. RAD/OR-Steroi/Epid Inj/Lum Sac/1st IMPRESSION: Intraoperative imaging provided for caudal block. Electronically Signed: Jaspreet Armstrong MD at 12:51 EST Tel [phone], Service support ,
[2018-09-03] MEDS: MethylPREDNISolone Acetate 80 MG/ML Vial (09:23)
[2018-09-03] MEDS: Bupivacaine 0.25% 30 ML Vial (09:23)
[2018-09-03 09:30] VITALS: BP 119/83; BP 126/75; PULSE 77; RESP 14; TEMP 36.9; O2SAT 91
[2018-09-03 09:35] VITALS: BP 120/88; BP 126/75; PULSE 76; RESP 16; O2SAT 91
[2018-09-03 09:40] VITALS: BP 122/86; BP 126/75; PULSE 75; RESP 16; O2SAT 91
[2018-09-03 09:42] VITALS: BP 126/75; BP 127/90; PULSE 73; RESP 16; TEMP 36.6; O2SAT 95
[2018-09-03 10:09] VITALS: BP 126/75
--- NOTE | 2018-09-03 10:49 | OP.PCM_ITS ---
Problem List (1) Degeneration of intervertebral disc of lumbosacral region Status: Chronic (2) Radiculopathy of lumbosacral region Status: Chronic (3) Spinal stenosis of lumbosacral region Status: Chronic Report of Operation Date of Procedure: 09/03/18 Pre-Operative Diagnosis: Lumbosacral radiculopathy, lumbosacral degenerative disc disease, lumbosacral spinal stenosis Post-Operative Diagnosis: Lumbosacral radiculopathy, lumbosacral degenerative disc disease, lumbosacral spinal stenosis Surgery/Procedure Performed:: Diagnostic/therapeutic caudal epidural steroid injection Description of Surgical Findings:: PROCEDURE: Diagnostic/therapeutic caudal epidural steroid injection PREOPERATIVE DIAGNOSIS: Lumbosacral radiculopathy, lumbosacral degenerative disc disease, lumbosacral spinal stenosis POSTOPERATIVE DIAGNOSIS: Lumbosacral radiculopathy, lumbosacral degenerative disc disease, lumbosacral spinal stenosis ANESTHESIA: MAC COMPLICATIONS: None BLOOD LOSS: Minimal PROCEDURE IN DETAIL: History and physical today was reviewed. Risks and benefits of the procedure were explained. The patient understood, agreed to our procedure, and informed consent was obtained. IV inserted per routine protocol. The patient was taken to the operating room, placed in a prone position with a pillow positioned underneath the abdomen. The lower back and tailbone area was prepped and draped in a sterile fashion using iodine ?3 under fluoroscopy guidance on the lateral view the caudal space was identified the skin and subcutaneous tissue and size approximately 3 cc of 1% lidocaine using a 25-gauge regular needle under direct visualization fluoroscopy using the lateral approach using a 22-gauge 3-1/2 inch spinal needle the needle was advanced via the skin through the sacral hiatus, tip of the needle passed through the sacrococcygeal ligament advanced approximately S4 area after negative aspiration for blood or CSF a total of 3 cc of contrast were injected to confirm correct placement of the needle as well as cephalad spread the spread was followed to approximately L5 area after confirmation AP as well as lateral view repeated negative aspiration a total of 15 cc of preservative-free 0.125% Marcaine with 80 mg of the portal was injected easily. The needles were then removed intact. The patient experienced no signs or symptoms intrathecal, intravascular injection. The patient experienced no paraesthesia. The procedure was completed without any apparent difficult, any complication. The patient appeared to tolerate well. ASSESSMENT AND PLAN: This is a 63-year-old male with lumbosacral radiculopathy, lumbosacral degenerative disc disease, lumbosacral spinal stenosis status post di agnostic/therapeutic caudal epidural steroid injection. The patient will continue his current medications. The patient will follow in approximately 2 weeks for reevaluation.
--- OUTSIDE RECORDS SUMMARY | 2018-11-05 15:12 | XMS RPT_ITS ---
:1955 Author Organization OHIP Support Name Relationship Address Phone KAI FIGUEROA Unavailable [address] + [place] [address] R Unavailable Unavailable Unavailable LAURITA, ANDREE Unavailable Unavailable + [place] [address] D Unavailable Unavailable Unavailable SEJAL FIGUEROAHUNTER Unavailable [address] + [place] [address] LAURITA, ANDREE Unavailable Unavailable + [place] [address] D Unavailable Unavailable Unavailable FIGUEROASEJALHUNTER Unavailable [address] + [place] [address] LAURITA, ANDREE Unavailable Unavailable + [place] [address] D Unavailable Unavailable Unavailable SEJAL FIGUEROAANAEDUARDO Unavailable [address] + [place] [address] LAURITA, ANDREE Unavailable Unavailable + [place] [address] D Unavailable Unavailable Unavailable FIGUEROASEJALHUNTER Unavailable [address] + [place] [address] LAURITA, ANDREE Unavailable Unavailable + [place] [address] D Unavailable Unavailable Unavailable FIGUEROASEJALHUNTER Unavailable [address] + [place] [address] LAURITA, ANDREE Unavailable Unavailable + [place] [address] Care Team Providers Name Role Phone Julio Garcia Attending Unavailable Julio Garcia Referring Unavailable Jose Luis Miranda Primary Care Unavailable Holly Cohen Attending Unavailable Holly Cohen Referring Unavailable Jose Luis Miranda Primary Care Unavailable Momo Costa Attending Unavailable Holly Cohen Referring Unavailable Older, Saira COMPUTER GAME DESIGNER Attending Unavailable Miranda, Jose Luis Primary Care Unavailable Older, Saira COMPUTER GAME DESIGNER Referring Unavailable Miranda, Jose Luis Attending Unavailable Miranda, Jose Luis Referring Unavailable Miranda, Jose Luis Primary Care Unavailable Miranda, Jose Luis Attending Unavailable Miranda, Jose Luis Referring Unavailable Miranda, Jose Luis Primary Care Unavailable MIRANDA, MANUEL Attending Unavailable OLDER, SAIRA (COMPUTER GAME DESIGNER) Attending Unavailable OLDER, SAIRA (COMPUTER GAME DESIGNER) Referring Unavailable MIRANDA, MANUEL Attending Unavailable MIRANDA, MANUEL Referring Unavailable MIRANDA, MANUEL Referring Unavailable MIRANDA, MANUEL Referring Unavailable MIRANDA, MANUEL Attending Unavailable MIRANDA, MANUEL Referring Unavailable KARISHMA SYLVESTER (COMPUTER GAME DESIGNER) Attending Unavailable HOLLY COHEN Attending Unavailable HOLLY COHEN Referring Unavailable HOLLY COHEN Attending Unavailable HOLLY COHEN Referring Unavailable Jose Luis Miranda MD Primary Care Unavailable PROBLEMS PROBLEMS DATE TYPE CONDITION / CODE ATTENDING STATUS SOURCE 08/13/2018 Active Unknown / NGA, Active [place] UNK(Unknown) KARISHMA ([facility]) Clinic Main [place] Repository 07/10/2018 Unknown Z79.899 - Other long Miranda, Active [place] term (current) drug [facility] therapy / Hospital Z79.899(ICD-10) Repository 06/28/2018 Unknown R20.0 - Anesthesia Miranda, Active [place] of skin / [facility] R20.0(ICD-10) Hospital Repository 06/28/2018 Unknown R63.5 - Abnormal Miranda, Active [place] weight gain / [facility] R63.5(ICD-10) Hospital Repository 06/28/2018 Active Other terminal manager NA Active [place] (current) drug [facility] Main therapy / [place] Z79.899(ICD-10) Repository 06/28/2018 Active Abnormal weight gain NA Active [place] / R63.5(ICD-10) Clinic Main [place] Repository 06/28/2018 Active Anesthesia of skin / NA Active [place] R20.0(ICD-10) Clinic Main [place] Repository 11/03/2017 Unknown R53.81 - Other Older, Saira COMPUTER GAME DESIGNER Active [place] malaise / Community R53.81(ICD-10) Hospital Repository 11/03/2017 Unknown R42 - Dizziness and Older, Saira COMPUTER GAME DESIGNER Active [place] giddiness / Community R42(ICD-10) Hospital Repository 11/03/2017 Unknown R53.83 - Other Older, Saira COMPUTER GAME DESIGNER Active [place] fatigue / Community R53.83(ICD-10) Hospital Repository 10/26/2017 Active Other malaise / NA Active [place] R53.81(ICD-10) Clinic Main [place] Repository 10/26/2017 Active Other fatigue / NA Active [place] R53.83(ICD-10) Clinic Main [place] Repository 10/26/2017 Active Dizziness and NA Active [place] giddiness / Clinic Main R42(ICD-10) [place] Repository 10/30/2017 Unknown I25.10 - [place], Active [place] Atherosclerotic [facility] heart disease [facility] [place] coronary Repository artery without angina pectoris / I25.10(ICD-10) 09/19/2017 Active Atherosclerosis of NOEL, Active [place] coronary artery [facility] Other bypass graft(s), [place] unspecified, with Repository other forms of angina pectoris / I25.708(ICD-10) 09/19/2017 Active Atherosclerotic NOEL, Active [place] heart disease of [facility] Other [place] coronary [place] artery without Repository angina pectoris / I25.10(ICD-10) 09/19/2017 Active Other forms of NOEL, Active [place] dyspnea / [facility] Other R06.09(ICD-10) [place] Repository 09/19/2017 Admitting Unknown / NOEL, Active [facility] diagnosis UNK(Unknown) [facility] Repository PROCEDURES PROCEDURES No Procedure Records FoundRESULTS RESULTS OPERATIVE REPORT Observed: 09/03/2018 Status: F Source: [place] 10:49 AM [facility] REPOSITORY [facility] Medical Records Department [address] [place] [address] Operative Report 09/03/18 1047 MR#: [id number] Acct: [id number] Name: ABDIRIZAK FIGUEROA Rep #: [id number] : 1955 63 From: Julio Garcia MD PCP: Jose Luis Miranda MD Status: [facility] Y Location: [facility] Problem List (1) Degeneration of intervertebral disc of lumbosacral region Status: Chronic (2) Radiculopathy of lumbosacral region Status: Chronic (3) Spinal stenosis of lumbosacral region Status: Chronic Report of Operation Date of Procedure: 09/03/18 Pre-Operative Diagnosis: Lumbosacral radiculopathy, lumbosacral degenerative disc disease, lumbosacral spinal stenosis Post-Operative Diagnosis: Lumbosacral radiculopathy, lumbosacral degenerative disc disease, lumbosacral spinal stenosis Surgery/Procedure Performed:: Diagnostic/therapeutic caudal epidural steroid injection Description of Surgical Findings:: PROCEDURE: Diagnostic/therapeutic caudal epidural steroid injection PREOPERATIVE DIAGNOSIS: Lumbosacral radiculopathy, lumbosacral degenerative disc disease, lumbosacral spinal stenosis POSTOPERATIVE DIAGNOSIS: Lumbosacral radiculopathy, lumbosacral degenerative disc disease, lumbosacral spinal stenosis ANESTHESIA: MAC COMPLICATIONS: None BLOOD LOSS: Minimal PROCEDURE IN DETAIL: History and physical today was reviewed. Risks and benefits of the procedure were explained. The patient understood, agreed to our procedure, and informed consent was obtained. IV inserted per routine protocol. The patient was taken to the operating room, placed in a prone position with a pillow positioned underneath the abdomen. The lower back and tailbone area was prepped and draped in a sterile fashion using iodine 3 under fluoroscopy guidance on the lateral view the caudal space was identified the skin and subcutaneous tissue and size approximately 3 cc of 1% lidocaine using a 25-gauge regular needle under direct visualization fluoroscopy using the lateral approach using a 22-gauge 3-1/2 inch spinal needle the needle was advanced via the skin through the sacral hiatus, tip of the needle passed through the sacrococcygeal ligament advanced approximately S4 area after negative aspiration for blood or CSF a total of 3 cc of contrast were injected to confirm correct placement of the needle as well as cephalad spread the spread was followed to approximately L5 area after confirmation AP as well as lateral view repeated negative aspiration a total of 15 cc of preservative-free 0.125% Marcaine with 80 mg of the portal was injected easily. The needles were then removed intact. The patient experienced no signs or symptoms intrathecal, intravascular injection. The patient experienced no paraesthesia. The procedure was completed without any apparent difficult, any complication. The patient appeared to tolerate well. ASSESSMENT AND PLAN: This is a 63-year-old male with lumbosacral radiculopathy, lumbosacral degenerative disc disease, lumbosacral spinal stenosis status post diagnostic/therapeutic caudal epidural steroid injection. The patient will continue his current medications. The patient will follow in approximately 2 weeks for reevaluation. 09/03/18 1049 <Electronically signed by Julio Garcia MD> Date Julio Garcia MD CC: Julio Garcia; Jose Luis Miranda MD Signed BEDSIDE GLUCOSE Collected: 09/03/2018 Status: F Source: [place] 8:02 AM [facility] REPOSITORY TYPE CODE TESTS RESULT OUT OF REFERENCE UNITS RANGE LAB L501.080 70-110 mg/dL High BEDSIDE GLU 125 Result Comment: MANAGEMENT OF PATIENT CARE PER NURSING PROTOCOL Performed By: #### L501.080 #### [facility] Laboratory Point of Care [address] [place] [address] OR-STEROI/EPID INJ/LUM Observed: 09/03/2018 Status: F Source: [place] 1:14 AM [facility] REPOSITORY [facility] Imaging Services [address] [place] [address] OR-Steroi/Epid Inj/Lum / MR#: [id number] Acct: [id number] Name: ABDIRIZAK FIGUEROA Rep #: [id number] : 1955 M 63 From: Jaspreet Armstrong MD PCP: Jose Luis Miranda MD Status: [facility] Study: OR-Steroi/Epid Inj/Lum Sac/1st Date of Exam: 09/03/18 Exam# [id number] Ordering Dr: Julio Garcia MD STUDY: CAUDAL BLOCK. REASON FOR EXAM: Male, 63 years old. Chronic low back pain. FLUOROSCOPY TIME (if supplied): (0:12) minutes/seconds. 2 coned-down views were obtained intraoperatively. TECHNIQUE: A caudal block was performed. COMPARISON: None. FINDINGS: The spinal needle is seen along the posterior midportion of the sacrum. RAD/OR-Steroi/Epid Inj/Lum Sac/1st IMPRESSION: Intraoperative imaging provided for caudal block. Electronically Signed: Jaspreet Armstrong MD at 12:51 EST Tel [phone], Service support , CC: Julio Garcia; Jose Luis Miranda MD Digital Watch Assembler: Signed PROGRESS Observed: 08/13/2018 Status: COMPLETED Source: [place] 1:42 PM [facility] [place] REPOSITORY HNO ID: [id number] Author: Karishma (Damon) Nga Service: (none) Author Type: Nurse Practitioner Type: Progress Notes Filed: 08/13/2018 2:26 PM Note Text: 63 year old male with c/o URI sx over the last week with no improvement. Sore throat: Yes. Runny/stuffy nose: Yes. Postnasal drip: Yes. Throat clearing: Yes. Sinus pain/ pressure: Yes. Teeth pain: Yes. Headache Yes -- moreso pressure. Body aches Yes. Ear pain: Yes - a lot of crackling. Cough: Yes. Production: Yes -- yellow. Fever: Yes -- on and off. Hx asthma Yes. Hx pneumonia No. Smoker: No. OTC meds tried: prednisone, mucinex, salt water gargles. ACTIVE PROBLEM LIST Displacement of Cervical Intervertebral Disc Without Myelopathy Fibromyalgia Generalized Osteoarthritis Rosacea Other Hyperlipidemia Copd With Chronic Bronchitis (Hcc) Lumbosacral Neuritis Constipation Hearing Loss of Both Ears Cad (Coronary Artery Disease) Tubular Adenoma of Colon Impaired Fasting Glucose Gastroesophageal Reflux Disease With Esophagitis Bph With Obstruction/Lower Urinary Tract Symptoms Obesity, Class I, Bmi 30-34.9 Controlled Type 2 Diabetes Mellitus Without Complication, Without Long-Term Current Use of Insulin ([facility]) Current Outpatient Prescriptions: albuterol HFA (VENTOLIN HFA) 90 mcg/actuation inhaler Inhale 2 Puffs as instructed every 4 hours as needed for Wheezing/Shortness of Breath. Disp: 1 Inhaler Rfl: 5 aspirin, enteric coated (ASPIR-81) 81 mg EC tablet Take 1 tablet by mouth once daily. Disp: Rfl: 0 atorvastatin (LIPITOR) 80 mg tablet Take 1 tablet by mouth daily at bedtime. Disp: 90 tablet Rfl: 3 baclofen (LIORESAL) 10 mg tablet Disp: Rfl: Benzonatate 200 mg capsule Take 1 capsule by mouth three times daily as needed. Disp: 30 capsule Rfl: 0 blood sugar diagnostic (BLOOD GLUCOSE TEST) test strip Test blood sugar(s) one times daily. Dx: Type 2 DM - Controlled E11.9 Insulin: No Disp: 50 Strip Rfl: 5 Blood-Glucose Meter (FREESTYLE LITE METER) monitoring kit Test blood sugar(s) one times daily. Dx: Type 2 DM - Controlled E11.9 Insulin: No Disp: 1 Each Rfl: 0 calcium Carbonate 300 mg, 750mg, (TUMS) 300 mg (750 mg) chewable tablet Take 1 tablet by mouth as needed (heartburn). Disp: Rfl: celecoxib (CELEBREX) 200 mg capsule Take 200 mg by mouth once daily. Disp: Rfl: cyclobenzaprine (FLEXERIL) 10 mg tablet Take 1 tablet by mouth every 8 hours as needed. FOR PAIN OR SPASMS Disp: 20 tablet Rfl: 0 fluticasone (FLONASE) 50 mcg/actuation nasal spray Use 2 Sprays in each nostril once daily. Disp: 1 Bottle Rfl: 5 gabapentin (NEURONTIN) 300 mg capsule Take 1 capsule by mouth twice daily. Prescribed by pain management. Disp: Rfl: guaiFENesin (MUCINEX) 600 mg 12 hr tablet Take 2 tablets by mouth twice daily. Disp: 24 tablet Rfl: 0 HYDROcodone-acetaminophen 5-325 mg per tablet Take 1 tablet by mouth every 6 hours as needed. Disp: 60 tablet Rfl: 0 Lancets lancets Test blood sugar(s) one times daily. Dx: Type 2 DM - Controlled E11.9 Insulin: No Disp: 100 Each Rfl: 5 metFORMIN (GLUCOPHAGE) 500 mg tablet Take 1 tablet by mouth twice daily with meals. Disp: 60 tablet Rfl: 5 multivitamin tablet Take 1 tablet by mouth once daily. Disp: Rfl: predniSONE (DELTASONE) 20 mg tablet Take 2 tablets by mouth once daily for 5 days. Disp: 10 tablet Rfl: 0 traZODone (DESYREL) 50 mg tablet Take 1-2 tablets by mouth daily at bedtime. Disp: 180 tablet Rfl: 3 No current facility-administered medications for this visit. OBJECTIVE: BP 128/70 (BP Site: Right Arm, BP Position: Sitting, BP Cuff Size: Large Adult) Pulse 80 Temp 36.9 ?C (98.4 ?F) (Left Tympanic) Resp 14 Wt 110.2 kg (243 lb) SpO2 96% BMI 34.87 kg/m? General Appearance: Well appearing, alert, in no acute distress, well-hydrated, well nourished.. Skin: Skin color, texture, turgor normal, no suspicious rashes or lesions. Head: Normocephalic, no masses, lesions, tenderness or abnormalities. Eyes: Anicteric sclera. Pupils are equally round and reactive to light. Extraocular movements are intact. . Ears: External ears normal, canals clear, Normal TMs bilaterally. Nose/Sinuses: Nares normal, septum midline, mucosa normal, no drainage. + maxillary tenderness. Oropharynx: Lips, mucosa, and tongue normal, teeth and gums normal, oropharynx normal. Neck: Supple, no adenopathy Lungs: lungs clear to auscultation. No wheezing, rhonchi, rales. Heart: RRR without murmur, gallop, or rubs. No ectopy. Neurologic: Gait normal. Reflexes normal and symmetric. Sensation grossly intact. ASSESSMENT/PLAN: 1. Acute non-recurrent maxillary sinusitis - ICD9: 461.0, ICD10: J01.00 - Will begin treatment with Augmentin 875 mg PO BID for 10 days - The patient should also be given mucinex for the first 5- 7 days of treatment. - Supportive care with plenty of fluids, rest, and analgesia prn. - AMOXICILLIN 875 MG-POTASSIUM CLAVULANATE 125 MG TABLET Plan: Nasal saline, decongestant, cool mist, rest , fluids, good nutrition Observation 5-7 days for improvment If worse, fever > 101F : call or return See orders and/or patient instructions. Patient ( or Guardian) expressed understanding of instructions on review. Discussed treatment plan and patient voices understanding. Patient's questions answered appropriately. Medications and potential side effects were discussed and patient voices understanding. Return to the office as scheduled or as needed for worsening/no improvement. Karishma Sylvester APRN.DAMON CNOV Observed: 08/13/2018 Status: COMPLETED Source: [place] 1:40 PM [facility] REPOSITORY Office Visit (FAMPWS) CAROLINADANIELABDIRIZAK J ([id number]) 1955 M NFR Date Time Provider Department 08/13/18 1:40 PM KARISHMA SYLVESTER (COMPUTER GAME DESIGNER) FAMPWS During your visit today, we recorded the following information about you: Temperature Pulse Respiration Blood pressure 98.4 degrees 80/minute 14/minute 128/70 Weight 110.2 kg Karishma Sylvester APRN.CNP 08/13/2018 2:26 PM Signed 63 year old male with c/o URI sx over the last week with no improvement. Sore throat: Yes. Runny/stuffy nose: Yes. Postnasal drip: Yes. Throat clearing: Yes. Sinus pain/ pressure: Yes. Teeth pain: Yes. Headache Yes -- moreso pressure. Body aches Yes. Ear pain: Yes - a lot of crackling. Cough: Yes. Production: Yes -- yellow. Fever: Yes -- on and off. Hx asthma Yes. Hx pneumonia No. Smoker: No. OTC meds tried: prednisone, mucinex, salt water gargles. ACTIVE PROBLEM LIST Displacement of Cervical Intervertebral Disc Without Myelopathy Fibromyalgia Generalized Osteoarthritis Rosacea Other Hyperlipidemia Copd With Chronic Bronchitis (Hcc) Lumbosacral Neuritis Constipation Hearing Loss of Both Ears Cad (Coronary Artery Disease) Tubular Adenoma of Colon Impaired Fasting Glucose Gastroesophageal Reflux Disease With Esophagitis Bph With Obstruction/Lower Urinary Tract Symptoms Obesity, Class I, Bmi 30-34.9 Controlled Type 2 Diabetes Mellitus Without Complication, Without Long-Term Current Use of Insulin (Hcc) Current Outpatient Prescriptions: albuterol HFA (VENTOLIN HFA) 90 mcg/actuation inhaler Inhale 2 Puffs as instructed every 4 hours as needed for Wheezing/Shortness of Breath. Disp: 1 Inhaler Rfl: 5 aspirin, enteric coated (ASPIR-81) 81 mg EC tablet Take 1 tablet by mouth once daily. Disp: Rfl: 0 atorvastatin (LIPITOR) 80 mg tablet Take 1 tablet by mouth daily at bedtime. Disp: 90 tablet Rfl: 3 baclofen (LIORESAL) 10 mg tablet Disp: Rfl: Benzonatate 200 mg capsule Take 1 capsule by mouth three times daily as needed. Disp: 30 capsule Rfl: 0 blood sugar diagnostic (BLOOD GLUCOSE TEST) test strip Test blood sugar(s) one times daily. Dx: Type 2 DM - Controlled E11.9 Insulin: No Disp: 50 Strip Rfl: 5 Blood-Glucose Meter (FREESTYLE LITE METER) monitoring kit Test blood sugar(s) one times daily. Dx: Type 2 DM - Controlled E11.9 Insulin: No Disp: 1 Each Rfl: 0 calcium Carbonate 300 mg, 750mg, (TUMS) 300 mg (750 mg) chewable tablet Take 1 tablet by mouth as needed (heartburn). Disp: Rfl: celecoxib (CELEBREX) 200 mg capsule Take 200 mg by mouth once daily. Disp: Rfl: cyclobenzaprine (FLEXERIL) 10 mg tablet Take 1 tablet by mouth every 8 hours as needed. FOR PAIN OR SPASMS Disp: 20 tablet Rfl: 0 fluticasone (FLONASE) 50 mcg/actuation nasal spray Use 2 Sprays in each nostril once daily. Disp: 1 Bottle Rfl: 5 gabapentin (NEURONTIN) 300 mg capsule Take 1 capsule by mouth twice daily. Prescribed by pain management. Disp: Rfl: guaiFENesin (MUCINEX) 600 mg 12 hr tablet Take 2 tablets by mouth twice daily. Disp: 24 tablet Rfl: 0 HYDROcodone-acetaminophen 5-325 mg per tablet Take 1 tablet by mouth every 6 hours as needed. Disp: 60 tablet Rfl: 0 Lancets lancets Test blood sugar(s) one times daily. Dx: Type 2 DM - Controlled E11.9 Insulin: No Disp: 100 Each Rfl: 5 metFORMIN (GLUCOPHAGE) 500 mg tablet Take 1 tablet by mouth twice daily with meals. Disp: 60 tablet Rfl: 5 multivitamin tablet Take 1 tablet by mouth once daily. Disp: Rfl: predniSONE (DELTASONE) 20 mg tablet Take 2 tablets by mouth once daily for 5 days. Disp: 10 tablet Rfl: 0 traZODone (DESYREL) 50 mg tablet Take 1-2 tablets by mouth daily at bedtime. Disp: 180 tablet Rfl: 3 No current facility-administered medications for this visit. OBJECTIVE: BP 128/70 (BP Site: Right Arm, BP Position: Sitting, BP Cuff Size: Large Adult) Pulse 80 Temp 36.9 ?C (98.4 ?F) (Left Tympanic) Resp 14 Wt 110.2 kg (243 lb) SpO2 96% BMI 34.87 kg/m? General Appearance: Well appearing, alert, in no acute distress, well-hydrated, well nourished.. Skin: Skin color, texture, turgor normal, no suspicious rashes or lesions. Head: Normocephalic, no masses, lesions, tenderness or abnormalities. Eyes: Anicteric sclera. Pupils are equally round and reactive to light. Extraocular movements are intact. . Ears: External ears normal, canals clear, Normal TMs bilaterally. Nose/Sinuses: Nares normal, septum midline, mucosa normal, no drainage. + maxillary tenderness. Oropharynx: Lips, mucosa, and tongue normal, teeth and gums normal, oropharynx normal. Neck: Supple, no adenopathy Lungs: lungs clear to auscultation. No wheezing, rhonchi, rales. Heart: RRR without murmur, gallop, or rubs. No ectopy. Neurologic: Gait normal. Reflexes normal and symmetric. Sensation grossly intact. ASSESSMENT/PLAN: 1. Acute non-recurrent maxillary sinusitis - ICD9: 461.0, ICD10: J01.00 - Will begin treatment with Augmentin 875 mg PO BID for 10 days - The patient should also be given mucinex for the first 5- 7 days of treatment. - Supportive care with plenty of fluids, rest, and analgesia prn. - AMOXICILLIN 875 MG-POTASSIUM CLAVULANATE 125 MG TABLET Plan: Nasal saline, decongestant, cool mist, rest , fluids, good nutrition Observation 5-7 days for improvment If worse, fever > 101F : call or return See orders and/or patient instructions. Patient ( or Guardian) expressed understanding of instructions on review. Discussed treatment plan and patient voices understanding. Patient's questions answered appropriately. Medications and potential side effects were discussed and patient voices understanding. Return to the office as scheduled or as needed for worsening/no improvement. Karishma Sylvester APRN.DAMON Sylvester APRN.CNP 08/13/2018 2:03 PM Signed Get plenty of rest. Force fluids daily with water and juices. Nasal saline spray may help to keep nose open and moist: 2- 3 squirts each side every few hours. This also help to rinse out virus and bacteria causing infection. Cool mist humidifier in room during sleep. May use OTC Tylenol or Ibuprofen as direct for discomfort. For sore throat, warm salt water gargles, Chlorseptic spray, lozenges or other OTC sore throat remedies may help. Continue mucinex with nasal stuffiness or facial and sinus pressure. Generics are fine. These are over the counter but require an adult signature. Oxymetolazine nasal decongestants (Afrin, Dristan, Eriberto's) may also help (in place of oral decongestants) but should not be used longer than 48-72 hours due to potential rebound congestion. OTC antihistamines such Benadryl (make cause drowsiness) or Zyrtec/ Clariten/ Brittney (non-drowsy) may help watery nasal drainage though they are generally not recommended because they dry mucus and make it sticky. The flow of mucus is important to help your body rid the virus. If cough keeps you awake at night, try OTC remedies first, such as Nyquil, Delsym, Eriberto's 44 or Mucinex DM. If this doesn't help you sleep, call the office for a prescription. Be careful if you are combining cough and cold medications that you aren't doubling the medicines. If you aren't sure: ask the pharmacist for help. Cough or sneeze into your sleeve to prevent spread of infected secretions. Wash your hands frequently. Try not to cough or sneeze on surfaces others might touch. If symptoms fail to improve in 5-7 days, fever > 100.5F, general worsening, or other concerning symptoms, return to [facility] or Jose Luis Miranda MD. Referring Provider: SELF [200] Allergies As of Date: 08/13/2018 Noted Allergy Reaction ADHESIVE TAPE (ROSINS) 10/15/2014 9 - Itching CONTRAST DYE 07/28/2009 Comments: possible FD AND C BLUE NO.1 07/28/2009 SERTRALINE 01/14/2004 Comments: zoloft, hot, elevated BP Date Reviewed: 08/13/2018 Reviewed by: Yolanda Pantoja Blender/Braze Applicator - Fully Assessed Reason for Visit: Recheck [92] Cmt: urgent care follow up URI Reason For Visit History Recorded Primary Visit Diagnosis:Acute non-recurrent maxillary sinusitis [J01.00] Order(s):amoxicillin-clavulanic acid (AUGMENTIN) 875-125 mg per tabletTake 1 tablet by mouth twice daily for 10 days.Disp: 20 tabletRfl: 0 Prescriptions as of 08/13/2018 Sig: ALBUTEROL SULFATE HFA 90 MCG/* Inhale 2 Puffs as instructed * * ASPIRIN 81 MG TABLET,DELAYED * Take 1 tablet by mouth once d* ATORVASTATIN 80 MG TABLET Take 1 tablet by mouth daily * BACLOFEN 10 MG TABLET BENZONATATE 200 MG CAPSULE Take 1 capsule by mouth three* BLOOD SUGAR DIAGNOSTIC STRIPS Test blood sugar(s) one times* BLOOD-GLUCOSE METER KIT Test blood sugar(s) one times* CALCIUM CARBONATE 300 MG (750* Take 1 tablet by mouth as nee* CELECOXIB 200 MG CAPSULE Take 200 mg by mouth once ladan* CYCLOBENZAPRINE 10 MG TABLET Take 1 tablet by mouth every * FLUTICASONE 50 MCG/ACTUATION * Use 2 Sprays in each nostril * GABAPENTIN 300 MG CAPSULE Take 1 capsule by mouth twice* GUAIFENESIN ER 600 MG TABLET,* Take 2 tablets by mouth twice* HYDROCODONE 5 MG-ACETAMINOPHE* Take 1 tablet by mouth every * LANCETS Test blood sugar(s) one times* METFORMIN 500 MG TABLET Take 1 tablet by mouth twice * MULTIVITAMIN TABLET Take 1 tablet by mouth once d* PREDNISONE 20 MG TABLET Take 2 tablets by mouth once * TRAZODONE 50 MG TABLET Take 1-2 tablets by mouth ladan* AMOXICILLIN 875 MG-POTASSIUM * Take 1 tablet by mouth twice * Problem List As Of Date 08/13/2018 Noted Resolved CERVICAL DISC DISPLACMNT [M50.20] INVALID [...] type 2 diabetes mellitus without com*INVALID FOR* Other instructions from your clinician: Get plenty of rest. Force fluids daily with water and juices. Nasal saline spray may help to keep nose open and moist: 2-3 squirts each side every few hours. This also help to rinse out virus and bacteria causing infection. Cool mist humidifier in room during sleep. May use OTC Tylenol or Ibuprofen as direct for discomfort. For sore throat, warm salt water gargles, Chlorseptic spray, lozenges or other OTC sore throat remedies may help. Continue mucinex with nasal stuffiness or facial and sinus pressure. Generics are fine. These are over the counter but require an adult signature. Oxymetolazine nasal decongestants (Afrin, Dristan, Eriberto's) may also help (in place of oral decongestants) but should not be used longer than 48-72 hours due to potential rebound congestion. OTC antihistamines such Benadryl (make cause drowsiness) or Zyrtec/ Clariten/ Brittney (non-drowsy) may help watery nasal drainage though they are generally not recommended because they dry mucus and make it sticky. The flow of mucus is important to help your body rid the virus. If cough keeps you awake at night, try OTC remedies first, such as Nyquil, Delsym, Eriberto's 44 or Mucinex DM. If this doesn't help you sleep, call the office for a prescription. Be careful if you are combining cough and cold medications that you aren't doubling the medicines. If you aren't sure: ask the pharmacist for help. Cough or sneeze into your sleeve to prevent spread of infected secretions. Wash your hands frequently. Try not to cough or sneeze on surfaces others might touch. If symptoms fail to improve in 5-7 days, fever > 100.5F, general worsening, or other concerning symptoms, return to [facility] or Jose Luis Miranda MD. Prescriptions ordered this encounter Disp Refills Start End AMOXICILLIN 875 MG-POTASSIUM CLAVULA* 20 t* 0 08/13/2018 08/23/2018 Route: ORAL Sig: Take 1 tablet by mouth twice daily for 10 days. Encounter Status:Closed by KARISHMA SYLVESTER CNP on 08/13/18 PROGRESS Observed: 08/09/2018 Status: COMPLETED Source: [place] 7:04 PM [facility] [place] REPOSITORY O ID: [id number] Author: Genet Andrade Service: (none) Author Type: Nurse Practitioner Type: Progress Notes Filed: 08/09/2018 7:33 PM Note Text: Subjective The history is provided by the patient. No seismic interpreter was used. HPI Abdirizak Figueroa is a 63 year old male who presents today for CC of cough, chest congestion and fever This started 3-4 days ago He is also having a sore throat and sinus pressure. Risk factors: Former smoker for 25 years. BP 110/70 Pulse 85 Temp 37.7 ?C (99.8 ?F) (Left Tympanic) Resp 20 Wt 111.6 kg (246 lb) SpO2 97% BMI 35.30 kg/m? PAST MEDICAL HISTORY Diagnosis Date - Asthma [...] 06/16/2017 Added automatically from request for surgery [id number] - Impaired fasting glucose 07/15/2016 - Myalgia and myositis, unspecified - Other and unspecified hyperlipidemia - Other forms of migraine - Other malaise and fatigue - Other specified disease of hair and hair follicles - Rosacea - Snoring - Temporomandibular joint disorders, unspecified - Tubular adenoma of colon 10/30/2014 - Unspecified constipation 06/28/2010 Social History Marital status: Spouse name: Alethea Years of education: Number of children: 2 Social History Main Topics Smoking status: Former Smoker Packs/day: 0.00 Years: 25.00 Smokeless tobacco: Current User Types: Chew Comment: snuff 1 can a week Alcohol use: Yes 1.0 oz/week Comment: rarely Drug use: No Sexual activity: Yes Partners with: Female I have confirmed and edited as necessary, the [facility] Review of Systems Constitutional: Positive for chills and fever. HENT: Positive for congestion, sinus pain and sore throat. Negative for ear pain. Respiratory: Positive for cough. Negative for sputum production, shortness of breath and wheezing. Cardiovascular: Negative for chest pain. Musculoskeletal: Negative for myalgias. Neurological: Negative for headaches. All other systems reviewed and are negative. Objective Physical Exam Constitutional: He is well-developed, well-nourished, and in no distress. HENT: Head: Normocephalic and atraumatic. Right Ear: Tympanic membrane, external ear and ear canal normal. Left Ear: Tympanic membrane, external ear and ear canal normal. Nose: Mucosal edema and rhinorrhea present. Right sinus exhibits maxillary sinus tenderness and frontal sinus tenderness. Left sinus exhibits maxillary sinus tenderness and frontal sinus tenderness. Mouth/Throat: Uvula is midline and mucous membranes are normal. Posterior oropharyngeal edema and posterior oropharyngeal erythema present. No oropharyngeal exudate or tonsillar abscesses. Cardiovascular: Normal rate, regular rhythm and normal heart sounds. Pulmonary/Chest: Effort normal and breath sounds normal. He has no decreased breath sounds. He has no wheezes. He has no rhonchi. He has no rales. A dry hacking cough was noted during this encounter. Talking in full sentences. Handling secretions without drooling. Lips and nailbeds are pink without cyanosis. Lymphadenopathy: Head (right side): No submental, no submandibular, no tonsillar and no preauricular adenopathy present. Head (left side): No submental, no submandibular, no tonsillar and no preauricular adenopathy present. He has no cervical adenopathy. Right cervical: No superficial cervical adenopathy present. Left cervical: No superficial cervical adenopathy present. Nursing note and vitals reviewed. ASSESSMENT/PLAN: 1. URI with cough and congestion - ICD9: 465.9, ICD10: J06.9 (primary diagnosis) - Discussed viral etiology and rationale for treatment. Tylenol (generic acetaminophen) 500 mg-2 tabs every 8 hrs. as needed for fever and aches -Mucinex (generic is fine) 1200 mg twice daily to help with cough and to thin out mucus Rest, increase water intake Motrin or Tylenol as needed for fever or pain. Salt water gargles, chloraseptic spray or lozenges as needed for sore throat. Nasal spray as needed Cool mist humidifier at night A cold normally lasts 7-10 days. If your symptoms are lasting longer, develop fever, or worsening by that time instead of improving then return to clinic or follow up with PCP for re-evaluation. - BENZONATATE 200 MG CAPSULE (Tesslon Perls) Tessalon Perles as prescribed for coughing, do not combine this with other cough and cold medications - GUAIFENESIN ER 600 MG TABLET, EXTENDED RELEASE 12 HR 2. Wheezing - ICD9: 786.07, ICD10: R06.2 - Discussed use of Prednisone AND albuterol nebulizer 5 day course as needed for cough, wheeze, shortness of breath * Prednisone 40 mg (2 tablets) per day for 5 days, take in morning or early in day * Do not NSAIDs during this 5 day course (ibuprofen, naproxen, Motrin, Aleve, Advil) Tylenol only during prednisone use * Follow up with primary care provider if no improvement with treatmen ?Monitor blood sugars, as long as they stay less than 250 continue prednisone Use albuterol every 4 hours until calms - PREDNISONE 20 MG TABLET Diagnosis and treatment plan were discussed and questions were answered to the patient's satisfaction. Pt acknowledged understanding of concepts and follow up plan. Specific signs and symptoms that would indicate the need for higher level of care were discussed in detail warranting prompt ER evaluation. GUNNAR CisnerosOV Observed: 08/09/2018 Status: COMPLETED Source: [place] 6:45 PM [facility] REPOSITORY Office Visit (WSTR) ABDIRIZAK FIGUEROA ([id number]) 1955 M NFR Date Time Provider Department 08/09/18 6:45 PM GENET ANDRADE ([facility]) [place] During your visit today, we recorded the following information about you: Temperature Pulse Respiration Blood pressure 99.8 degrees 85/minute 20/minute 110/70 Weight 111.6 kg Genet Andrade APRN.CNP 08/09/2018 7:33 PM Signed Subjective The history is provided by the patient. No seismic interpreter was used. HPI Abdirizak Figueroa is a 63 year old male who presents today for CC of cough, chest congestion and fever This started 3-4 days ago He is also having a sore throat and sinus pressure. Risk factors: Former smoker for 25 years. BP 110/70 Pulse 85 Temp 37.7 ?C (99.8 ?F) (Left Tympanic) Resp 20 Wt 111.6 kg (246 lb) SpO2 97% BMI 35.30 kg/m? PAST MEDICAL HISTORY Diagnosis Date - Asthma [...] 06/16/2017 Added automatically from request for surgery [id number] - Impaired fasting glucose 07/15/2016 - Myalgia and myositis, unspecified - Other and unspecified hyperlipidemia - Other forms of migraine - Other malaise and fatigue - Other specified disease of hair and hair follicles - Rosacea - Snoring - Temporomandibular joint disorders, unspecified - Tubular adenoma of colon 10/30/2014 - Unspecified constipation 06/28/2010 Social History Marital status: Spouse name: Alethea Years of education: Number of children: 2 Social History Main Topics Smoking status: Former Smoker Packs/day: 0.00 Years: 25.00 Smokeless tobacco: Current User Types: Chew Comment: snuff 1 can a week Alcohol use: Yes 1.0 oz/week Comment: rarely Drug use: No Sexual activity: Yes Partners with: Female I have confirmed and edited as necessary, the [facility] Review of Systems Constitutional: Positive for chills and fever. HENT: Positive for congestion, sinus pain and sore throat. Negative for ear pain. Respiratory: Positive for cough. Negative for sputum production, shortness of breath and wheezing. Cardiovascular: Negative for chest pain. Musculoskeletal: Negative for myalgias. Neurological: Negative for headaches. All other systems reviewed and are negative. Objective Physical Exam Constitutional: He is well-developed, well-nourished, and in no distress. HENT: Head: Normocephalic and atraumatic. Right Ear: Tympanic membrane, external ear and ear canal normal. Left Ear: Tympanic membrane, external ear and ear canal normal. Nose: Mucosal edema and rhinorrhea present. Right sinus exhibits maxillary sinus tenderness and frontal sinus tenderness. Left sinus exhibits maxillary sinus tenderness and frontal sinus tenderness. Mouth/Throat: Uvula is midline and mucous membranes are normal. Posterior oropharyngeal edema and posterior oropharyngeal erythema present. No oropharyngeal exudate or tonsillar abscesses. Cardiovascular: Normal rate, regular rhythm and normal heart sounds. Pulmonary/Chest: Effort normal and breath sounds normal. He has no decreased breath sounds. He has no wheezes. He has no rhonchi. He has no rales. A dry hacking cough was noted during this encounter. Talking in full sentences. Handling secretions without drooling. Lips and nailbeds are pink without cyanosis. Lymphadenopathy: Head (right side): No submental, no submandibular, no tonsillar and no preauricular adenopathy present. Head (left side): No submental, no submandibular, no tonsillar and no preauricular adenopathy present. He has no cervical adenopathy. Right cervical: No superficial cervical adenopathy present. Left cervical: No superficial cervical adenopathy present. Nursing note and vitals reviewed. ASSESSMENT/PLAN: 1. URI with cough and congestion - ICD9: 465.9, ICD10: J06.9 (primary diagnosis) - Discussed viral etiology and rationale for treatment. Tylenol (generic acetaminophen) 500 mg-2 tabs every 8 hrs. as needed for fever and aches -Mucinex (generic is fine) 1200 mg twice daily to help with cough and to thin out mucus Rest, increase water intake Motrin or Tylenol as needed for fever or pain. Salt water gargles, chloraseptic spray or lozenges as needed for sore throat. Nasal spray as needed Cool mist humidifier at night A cold normally lasts 7-10 days. If your symptoms are lasting longer, develop fever, or worsening by that time instead of improving then return to clinic or follow up with PCP for re-evaluation. - BENZONATATE 200 MG CAPSULE (Tesslon Perls) Tessalon Perles as prescribed for coughing, do not combine this with other cough and cold medications - GUAIFENESIN ER 600 MG TABLET, EXTENDED RELEASE 12 HR 2. Wheezing - ICD9: 786.07, ICD10: R06.2 - Discussed use of Prednisone AND albuterol nebulizer 5 day course as needed for cough, wheeze, shortness of breath * Prednisone 40 mg (2 tablets) per day for 5 days, take in morning or early in day * Do not NSAIDs during this 5 day course (ibuprofen, naproxen, Motrin, Aleve, Advil) Tylenol only during prednisone use * Follow up with primary care provider if no improvement with treatmen ?Monitor blood sugars, as long as they stay less than 250 continue prednisone Use albuterol every 4 hours until calms - PREDNISONE 20 MG TABLET Diagnosis and treatment plan were discussed and questions were answered to the patient's satisfaction. Pt acknowledged understanding of concepts and follow up plan. Specific signs and symptoms that would indicate the need for higher level of care were discussed in detail warranting prompt ER evaluation. GUNNAR Cisneros APRN.CNP 08/09/2018 7:26 PM Signed ASSESSMENT/PLAN: 1. URI with cough and congestion - ICD9: 465.9, ICD10: J06.9 (primary diagnosis) - Discussed viral etiology and rationale for treatment. Tylenol (generic acetaminophen) 500 mg-2 tabs every 8 hrs. as needed for fever and aches -Mucinex (generic is fine) 1200 mg twice daily to help with cough and to thin out mucus Rest, increase water intake Motrin or Tylenol as needed for fever or pain. Salt water gargles, chloraseptic spray or lozenges as needed for sore throat. Nasal spray as needed Cool mist humidifier at night A cold normally lasts 7-10 days. If your symptoms are lasting longer, develop fever, or worsening by that time instead of improving then return to clinic or follow up with PCP for re-evaluation. - BENZONATATE 200 MG CAPSULE (Tesslon Perls) Tessalon Perles as prescribed for coughing, do not combine this with other cough and cold medications - GUAIFENESIN ER 600 MG TABLET, EXTENDED RELEASE 12 HR 2. Wheezing - ICD9: 786.07, ICD10: R06.2 - Discussed use of Prednisone AND albuterol nebulizer 5 day course as needed for cough, wheeze, shortness of breath * Prednisone 40 mg (2 tablets) per day for 5 days, take in morning or early in day * Do not NSAIDs during this 5 day course (ibuprofen, naproxen, Motrin, Aleve, Advil) Tylenol only during prednisone use * Follow up with primary care provider if no improvement with treatmen ?Monitor blood sugars, as long as they stay less than 250 continue prednisone Use albuterol every 4 hours until calms - PREDNISONE 20 MG TABLET Referring Provider: SELF [200] Allergies As of Date: 08/09/2018 Noted Allergy Reaction ADHESIVE TAPE (ROSINS) 10/15/2014 9 - Itching CONTRAST DYE 07/28/2009 Comments: possible FD AND C BLUE NO.1 07/28/2009 SERTRALINE 01/14/2004 Comments: zoloft, hot, elevated BP Date Reviewed: 08/09/2018 Reviewed by: Lashell Tena Ma - Fully Assessed Reason for Visit: Acute Visit [896] Cmt: per ptbronchial tubes filling up Fever [47] Sore Throat [200] Ear Problem [38] Cmt: tickling Primary Visit Diagnosis:URI with cough and congestion [J06.9] Other Visit Diagnosis:Wheezing [R06.2] Order(s):predniSONE (DELTASONE) 20 mg tabletTake 2 tablets by mouth once daily for 5 days.Disp: 10 tabletRfl: 0 Benzonatate 200 mg capsuleTake 1 capsule by mouth three times daily as needed.Disp: 30 capsuleRfl: 0 guaiFENesin (MUCINEX) 600 mg 12 hr tabletTake 2 tablets by mouth twice daily.Disp: 24 tabletRfl: 0 Prescriptions as of 08/09/2018 Sig: ALBUTEROL SULFATE HFA 90 MCG/* Inhale 2 Puffs as instructed * * ASPIRIN 81 MG TABLET,DELAYED * Take 1 tablet by mouth once d* ATORVASTATIN 80 MG TABLET Take 1 tablet by mouth daily * BLOOD SUGAR DIAGNOSTIC STRIPS Test blood sugar(s) one times* BLOOD-GLUCOSE METER KIT Test blood sugar(s) one times* CALCIUM CARBONATE 300 MG (750* Take 1 tablet by mouth as nee* CELECOXIB 200 MG CAPSULE Take 200 mg by mouth once ladan* CYCLOBENZAPRINE 10 MG TABLET Take 1 tablet by mouth every * FLUTICASONE 50 MCG/ACTUATION * Use 2 Sprays in each nostril * GABAPENTIN 300 MG CAPSULE Take 1 capsule by mouth twice* HYDROCODONE 5 MG-ACETAMINOPHE* Take 1 tablet by mouth every * LANCETS Test blood sugar(s) one times* METFORMIN 500 MG TABLET Take 1 tablet by mouth twice * MULTIVITAMIN TABLET Take 1 tablet by mouth once d* TRAZODONE 50 MG TABLET Take 1-2 tablets by mouth ladan* BACLOFEN 10 MG TABLET BENZONATATE 200 MG CAPSULE Take 1 capsule by mouth three* GUAIFENESIN ER 600 MG TABLET,* Take 2 tablets by mouth twice* PREDNISONE 20 MG TABLET Take 2 tablets by mouth once * Problem List As Of Date 08/09/2018 Noted Resolved CERVICAL DISC DISPLACMNT [M50.20] INVALID [...] type 2 diabetes mellitus without com*INVALID FOR* Other instructions from your clinician: ASSESSMENT/PLAN: 1. URI with cough and congestion - ICD9: 465.9, ICD10: J06.9 (primary diagnosis) - Discussed viral etiology and rationale for treatment. Tylenol (generic acetaminophen) 500 mg-2 tabs every 8 hrs. as needed for fever and aches -Mucinex (generic is fine) 1200 mg twice daily to help with cough and to thin out mucus Rest, increase water intake Motrin or Tylenol as needed for fever or pain. Salt water gargles, chloraseptic spray or lozenges as needed for sore throat. Nasal spray as needed Cool mist humidifier at night A cold normally lasts 7-10 days. If your symptoms are lasting longer, develop fever, or worsening by that time instead of improving then return to clinic or follow up with PCP for re-evaluation. - BENZONATATE 200 MG CAPSULE (Tesslon Perls) Tessalon Perles as prescribed for coughing, do not combine this with other cough and cold medications - GUAIFENESIN ER 600 MG TABLET, EXTENDED RELEASE 12 HR 2. Wheezing - ICD9: 786.07, ICD10: R06.2 - Discussed use of Prednisone AND albuterol nebulizer 5 day course as needed for cough, wheeze, shortness of breath * Prednisone 40 mg (2 tablets) per day for 5 days, take in morning or early in day * Do not NSAIDs during this 5 day course (ibuprofen, naproxen, Motrin, Aleve, Advil) Tylenol only during prednisone use * Follow up with primary care provider if no improvement with treatmen ?Monitor blood sugars, as long as they stay less than 250 continue prednisone Use albuterol every 4 hours until calms - PREDNISONE 20 MG TABLET Prescriptions ordered this encounter Disp Refills Start End PREDNISONE 20 MG TABLET 10 t* 0 08/09/2018 08/14/2018 Route: ORAL Sig: Take 2 tablets by mouth once daily for 5 days. BENZONATATE 200 MG CAPSULE 30 c* 0 08/09/2018 Route: ORAL Sig: Take 1 capsule by mouth three times daily as needed. GUAIFENESIN ER 600 MG TABLET, EXTEND* 24 t* 0 08/09/2018 Route: ORAL Sig: Take 2 tablets by mouth twice daily. Encounter Status:Closed by GENET ANDRADE CNP on 08/09/18 PROGRESS Observed: 07/17/2018 Status: COMPLETED Source: [place] 10:02 AM [facility] REPOSITORY HNO ID: [id number] Author: Jose Luis Miranda Service: (none) Author Type: Physician Type: Progress Notes Filed: 07/17/2018 10:21 AM Note Text: This note was created using [employer]ocket [employer]. Subjective Abdirizak Figueroa was here for follow up. He was mainly concerned about his labs. His medication list was updated. He was seeing Dr. Garcia for pain management, and was being referred to [facility] for evaluation of arthritis. ACTIVE PROBLEM LIST [...] CHEWABLE TABLET 5. Coronary artery disease involving moapa coronary artery of moapa heart without angina pectoris - ICD9: 414.01, ICD10: I25.10 Stable. 6. Other hyperlipidemia - ICD9: 272.4, ICD10: E78.49 - suboptimal control - Continue current medication. - ATORVASTATIN 80 MG TABLET 7. Generalized osteoarthritis - ICD9: 715.00, ICD10: M15.9 Per pain management. - CELECOXIB 200 MG CAPSULE Jose Luis Miranda MD CNOV Observed: 07/17/2018 Status: COMPLETED Source: [place] 9:20 AM [facility] REPOSITORY Office Visit (INTMWS) ABDIRIZAK FIGUEROA ([id number]) 1955 M NFR Date Time Provider Department 07/17/18 9:20 AM JOSE LUIS MIRANDA [place] During your visit today, we recorded the following information about you: Temperature Pulse Respiration Blood pressure 97.7 degrees 76/minute 12/minute 118/78 Weight 111.1 kg Kori Moura [employer] 07/17/2018 9:44 AM Signed Influenza Vaccine Documentation: [...] the patient have a history of Guillain ?[place] Syndrome (a severe paralytic illness): No ? [...] provided: Yes ? See Immunization Form in [employer] for details of immunizations administered today. If patient reports dizziness, vision changes or ringing in the ears post vaccination ? please have patient sit or lie down for 15 minutes. Jose Luis Miranda MD 07/17/2018 10:21 AM Signed This note was created using NoteWriter. Subjective Abdirizak Figueroa was here for follow up. He was mainly concerned about his labs. His medication list was updated. He was seeing Dr. Garcia for pain management, and was being referred to [facility] for evaluation of arthritis. ACTIVE PROBLEM LIST [...] CHEWABLE TABLET 5. Coronary artery disease involving moapa coronary artery of moapa heart without angina pectoris - ICD9: 414.01, ICD10: I25.10 Stable. 6. Other hyperlipidemia - ICD9: 272.4, ICD10: E78.49 - suboptimal control - Continue current medication. - ATORVASTATIN 80 MG TABLET 7. Generalized osteoarthritis - ICD9: 715.00, ICD10: M15.9 Per pain management. - CELECOXIB 200 MG CAPSULE Jose Luis Miranda MD Referring Provider: JOSE LUIS MIRANDA [[id number]] Allergies As of Date: 07/17/2018 Noted Allergy [...] with esophagitis [K21.0] Coronary artery disease involving moapa coronary artery of moapa heart without angina pectoris [I25.10] Other hyperlipidemia [E78.49] Generalized osteoarthritis [M15.9] Order(s):ADMIN OF INFLUENZA VACCINE [[id number]] Order #: [id number]: 1 INFLUENZA SEASONAL HIGH DOSE AGE 65+ [[id number]] Order #: [id number] atorvastatin (LIPITOR) 80 mg tabletTake 1 tablet by mouth daily at bedtime.Disp: 90 tabletRfl: 3 calcium Carbonate 300 mg, 750mg, (TUMS) 300 mg (750 mg) chewable tabletTake 1 tablet by mouth as needed (heartburn).Disp: Rfl: PNEUMOCOCCAL-13 VACCINE PCV-13 [[id number]] Order #: [id number] metFORMIN (GLUCOPHAGE) 500 mg tabletTake 1 tablet [...] without com*INVALID FOR* Visit Notes: >> Kori Ramos Jul 17, 2018 9:24 AM Status: Signed [...] the patient have a history of Guillain ?[place] Syndrome (a severe paralytic illness): No ? [...] provided: Yes ? See Immunization Form in [facility] for details of immunizations administered today. If [...] LIPID PROFILE Collected: 07/10/2018 Status: F Source: [place] 7:53 AM [facility] REPOSITORY TYPE CODE TESTS RESULT OUT OF [...] VLDL 22 Performed By: #### [id number] #### [facility] [place], [address] LIPID PANEL, BASIC Collected: 07/10/2018 Status: F Source: [place] 7:53 AM [facility] REPOSITORY TYPE CODE TESTS RESULT OUT OF REFERENCE UNITS RANGE LAB CHOL <200 mg/dL Cholesterol Test sent to [facility]. Result Comment: Account Credited HIDE LAB TRIGLY <150 mg/dL Triglyceride Test sent to [facility]. Result Comment: Account Credited HIDE LAB HDL >39 mg/dL HDL-Cholesterol Test sent to [facility]. Result Comment: Account Credited [facility]IDE LAB LDL <100 mg/dL LDL-Cholesterol Test sent to [facility]. Result Comment: Account Credited JEAN LAB NONHDL 90-159 mg/dL Non HDL Test Cholesterol sent to [facility]. Result Comment: Account Credited JEAN LAB FT hrs Fasting Time 12 LAB VLDL <30 mg/dL VLDL Cholesterol Test sent to [facility]. Result Comment: Account Credited JEAN LAB TCHDL <5.10 Test sent TC:HDL Ratio to [facility]. Result Comment: Account Credited JEAN LAB LDLHDL <2.54 Test sent LDL:HDL Ratio to [facility]. Result Comment: Account Credited JEAN SANTOS Observed: 07/03/2018 Status: COMPLETED Source: [place] 12:00 AM [facility] REPOSITORY Patient Outreach (INTMWH) ABDIRIZAK FIGUEROA ([id number]) 1955 M NFR Date Time Provider Department 07/03/18 JOSE LUIS MIRANDA [facility] During your visit today, we recorded the following information about you: Allergies As of Date: 07/03/2018 Noted Allergy Reaction ADHESIVE TAPE (ROSINS) 10/15/2014 9 - Itching CONTRAST DYE 07/28/2009 Comments: possible FD AND C BLUE NO.1 07/28/2009 SERTRALINE 01/14/2004 Comments: shellie fitch, elevated BP Date Reviewed: 01/15/2018 Reviewed by: Kori Moura LPN - Fully Assessed Visit Diagnosis:Medication management [Z79.899] Order(s):LIPID PANEL BASIC [SQLIPB] Order #: [id number] FUTURE Prescriptions as of 07/03/2018 Sig: ALBUTEROL SULFATE HFA 90 MCG/* Inhale 2 Puffs as instructed * * ASPIRIN 81 MG TABLET,DELAYED * Take 1 tablet by mouth once d* CYCLOBENZAPRINE 10 MG TABLET Take 1 tablet by mouth every * FLUTICASONE 50 MCG/ACTUATION * Use 2 Sprays in each nostril * GABAPENTIN 300 MG CAPSULE Take 1 capsule by mouth twice* HYDROCODONE 5 MG-ACETAMINOPHE* Take 1 tablet by mouth every * MULTIVITAMIN TABLET Take 1 tablet by mouth once d* TRAZODONE 50 MG TABLET Take 1-2 tablets by mouth ladan* X ATORVASTATIN 80 MG TABLET Take 1 tablet by mouth daily * X FLURBIPROFEN 100 MG TABLET Take 1 tablet by mouth twice * Patient not taking: Reported on 07/17/2018 X PANTOPRAZOLE 40 MG TABLET,DEL* Take 1 tablet by mouth daily * Patient not taking: Reported on 07/17/2018 X VENLAFAXINE ER 75 MG CAPSULE,* Take 2 capsules by mouth once* Patient not taking: Reported on 07/17/2018 Problem List As Of Date 07/03/2018 Noted Resolved CERVICAL DISC DISPLACMNT [M50.20] INVALID [...] Class I, BMI 30-34.9 [E66.9] INVALID FOR* Encounter Status:Closed by PlumbeeUSER on 08/03/18 ALBUMIN/CREAT RATIO Collected: 06/28/2018 Status: F Source: [place] 10:58 AM [facility] REPOSITORY TYPE CODE TESTS RESULT OUT OF REFERENCE UNITS RANGE LAB UCRR 20-300 mg/dL Test sent to [facility]. Result Comment: Account Credited [facility]IDE LAB UALBR 0.0-23.0 mg/L Test Albumin Urine sent to [facility]. Result Comment: Account Credited HIDE LAB UALBCR 0-30 mg/g Albumin/Creat Ratio Test sent to [facility]. Result Comment: Account Credited HIDE CBC AND DIFFERENTIAL Collected: 06/28/2018 Status: F Source: [place] 8:03 AM [facility] REPOSITORY TYPE CODE TESTS RESULT OUT OF REFERENCE UNITS RANGE LAB WBC 3.70-11.00 k/uL Test WBC sent to [facility]. Result Comment: Account Credited [facility]IDE LAB RBC 4.20-6.00 m/uL Test sent RBC to [facility]. Result Comment: Account Credited [facility]IDE LAB HGB 13.0-17.0 g/dL Hemoglobin Test sent to [facility]. Result Comment: Account Credited [facility] LAB HCT 39.0-51.0 % Hematocrit Test sent to [facility]. Result Comment: Account Credited [facility] LAB MCV 80.0-100.0 fL Test sent MCV to [facility]. Result Comment: Account Credited [facility] LAB MCH 26.0-34.0 pG Test sent MCH to [facility]. Result Comment: [facility] Credited [facility] LAB MCHC 30.5-36.0 g/dL Test MCHC sent to [facility]. Result Comment: Account Credited [facility] LAB RDWCV 11.5-15.0 % Test RDW-CV sent to [facility]. Result Comment: Account Credited [facility] LAB PLTCT 150-400 k/uL Test Platelet Count sent to [facility]. Result Comment: Account Credited [facility] LAB MPV 9.0-12.7 fL Test sent MPV to [facility]. Result Comment: Account Credited [facility]IDE LAB MAICO Recheck Test sent to [facility]. Result Comment: Account Credited [facility] LAB [facility]EUT % [facility] Result Comment: Account Credited [facility] LAB AANEUT 1.45-7.50 k/uL Test Abs sent to [facility]. Result Comment: Account Credited HIDE LAB ALYMP % [facility] Result Comment: Account Credited HIDE LAB AALYMP 1.00-4.00 k/uL Test Abs Lymph sent to [facility]. Result Comment: Account Credited HIDE LAB AMONO % Test sent to [place]% [facility]. Result Comment: Account Credited HIDE LAB AAMONO <0.87 k/uL Test sent Abs [place] to [facility]. Result Comment: Account Credited HIDE LAB AEOS % Test sent to E[place]% [facility]. Result Comment: Account Credited HIDE LAB AAEOS <0.46 k/uL Test sent Abs E[place] to [facility]. Result Comment: Account Credited HIDE LAB ABASO % [facility] Result Comment: Account Credited HIDE LAB AABASO <0.11 k/uL Test sent Abs Baso to [facility]. Result Comment: Account Credited [facility]IDE LAB REVW Test sent to Review [facility]. Result Comment: Account Credited HIDE LAB CBCCOM Comment Test sent to [facility]. Result Comment: Account Credited HIDE COMP METABOLIC PANEL Collected: 06/28/2018 Status: F Source: [place] 8:03 AM [facility] REPOSITORY TYPE CODE TESTS RESULT OUT OF REFERENCE UNITS RANGE LAB TP 6.3-8.0 g/dL Test sent to [facility]. Result Comment: Account Credited HIDE LAB ALB 3.9-4.9 g/dL Test Albumin sent to [facility]. Result Comment: Account Credited [facility] LAB CA 8.5-10.2 mg/dL Test Calcium, Total sent to [facility]. Result Comment: Account Credited [facility] LAB TBIL 0.2-1.3 mg/dL Bilirubin, Test Total sent to [facility]. Result Comment: Account Credited [facility] LAB ALKP 38-113 U/L Alkaline Test Phosphatase sent to [facility]. Result Comment: Account Credited [facility] LAB AST 14-40 U/L Test sent AST to [facility]. Result Comment: Account Credited [facility]IDE LAB GLU 74-99 mg/dL Test sent Glucose to [facility]. Result Comment: Account Credited [facility] LAB BUN 9-24 mg/dL Test sent BUN to [facility]. Result Comment: Account Credited JEAN LAB CRET 0.73-1.22 mg/dL Creatinine Test sent to [facility]. Result Comment: Account Credited [facility]IDE LAB NA 136-144 mmol/L Test Sodium sent to [facility]. Result Comment: Account Credited HIDE LAB K 3.7-5.1 mmol/L Test Potassium sent to [facility]. Result Comment: Account Credited [facility] LAB CL 97-105 mmol/L Test Chloride sent to [facility]. Result Comment: Account Credited HIDE LAB CO2 22-30 mmol/L Test sent CO2 to [facility]. Result Comment: Account Credited HIDE LAB AGAP 9-18 mmol/L Test sent Anion Gap to [facility]. Result Comment: Account Credited HIDE LAB ALT 10-54 U/L Test sent ALT to [facility]. Result Comment: Account Credited HIDE LAB GFRAA eGFR- Amer. Test sent to [facility]. Result Comment: Account Credited HIDE LAB GFRNAA . eGFR-All Test sent Other Races to [facility]. Result Comment: Account Credited HIDE LAB GFRPED eGFR-Ped. Test sent Factor to [facility]. Result Comment: Account Credited JEAN HEMOGLOBIN A1C Collected: 06/28/2018 Status: F Source: [place] 8:03 AM [facility] REPOSITORY TYPE CODE TESTS RESULT OUT OF REFERENCE UNITS RANGE LAB HGBA1C 4.0-6.0 % Test Hemoglobin A1c sent to [facility]. Result Comment: Account Credited JEAN LAB HBA0 mg/dL Est. Test sent Average Glucose to [facility]. Result Comment: Account Credited JEAN CBC W/DIFF, AUTOMATED Collected: 06/28/2018 Status: F Source: [place] 8:02 AM [facility] REPOSITORY TYPE CODE TESTS RESULT OUT OF [...] Lymph 1.67 Performed By: #### L100.0100 #### [facility] [address] [place], [address] CREATININE, URINE Collected: 06/28/2018 Status: F Source: [place] (RANDOM) 8:02 AM [facility] REPOSITORY TYPE CODE TESTS RESULT OUT OF RANGE REFERENCE UNITS LAB L501.1200 NO RANGE EST. mg/dL Normal UR CREAT 161.00 Performed By: #### L501.1200, L502.0250 #### [facility] [address] [place], [place], [address] MICROALB:CREAT Collected: 06/28/2018 Status: F Source: [place] RATIO,RANDOM UR 8:02 AM [facility] REPOSITORY TYPE CODE TESTS RESULT OUT OF RANGE REFERENCE UNITS LAB L501.1200 NO RANGE EST. mg/dL Normal UR CREAT 161.00 LAB L502.0500 NO RANGE EST. mg/L Normal 7.6 MICROALBUMIN ,UR LAB L502.0600 <30 mg/g CRE mg/g CRE Normal 4.8 MALB:CREAT Performed By: #### L501.1200, L502.0250 #### [facility] [address] [place], [place], [address] COMPREHENSIVE METABOLIC Collected: 06/28/2018 Status: F Source: [place] PROFIL 8:02 AM [facility] REPOSITORY TYPE CODE TESTS RESULT OUT OF [...] GAP 6 Performed By: #### L500.4050 #### [facility] [address] [facility] [place], [address] HEMOGLOBIN A1C Collected: 06/28/2018 Status: F Source: [place] 8:02 AM [facility] REPOSITORY TYPE CODE TESTS RESULT OUT OF RANGE REFERENCE UNITS LAB L501.9985 4.2-6.3 % High HGB A1C 7.3 Performed By: #### L501.9985 #### [facility] [address] [place], [address] PROGRESS Observed: 01/15/2018 Status: COMPLETED Source: [place] 9:03 AM [facility] REPOSITORY HNO ID: [id number] Author: Jos eLuis Miranda Service: (none) Author Type: Physician Type: Progress Notes Filed: 01/15/2018 9:15 AM Note Text: This note was created using NoteWriter. Subjective Abdirizak Figueroa is a 62 year [...] in the short term and in the prison. Risks: Possible side effects include GI upset, bleeding. Possible interactions: Aleve, stop this. Warnings: Possible increased risk of heart disease with any NSAID. Options: include:referral to orthopedics for injection of thumb. Cost: generic. Duration: terminal manager if effective. - FLURBIPROFEN 100 MG TABLET Jose Luis Miranda MD CNOV Observed: 01/15/2018 Status: COMPLETED Source: [place] 8:00 AM [facility] REPOSITORY Office Visit (INTMWS) ABDIRIZAK FIGUEROA ([id number]) 1955 NFR Date Time Provider Department 01/15/18 8:00 AM JOSE LUIS MIRANDA INTMWS During your visit today, we recorded the following information about you: Temperature Pulse Respiration Blood pressure 98.3 degrees 72/minute 16/minute 142/76 Weight 110.2 kg Jose Luis Miranda MD 01/15/2018 9:15 AM Signed This note was created using SeeMe. Subjective Abdirizak Figueroa is a 62 year [...] in the short term and in the terminal manager. Risks: Possible side effects include GI upset, bleeding. Possible interactions: Aleve, stop this. Warnings: Possible increased risk of heart disease with any NSAID. Options: include:referral to orthopedics for injection of thumb. Cost: generic. Duration: terminal manager if effective. - FLURBIPROFEN 100 MG TABLET Manuel Miranda, MD Referring Provider: JOSE LUIS MIRANDA [[id number]] Allergies As of Date: 01/15/2018 Noted Allergy [...] food.Disp: 60 tabletRfl: 0 CONSULT TO UROLOGY [9064] Order #: [id number]: 1 Prescriptions as of 01/15/2018 Sig: PANTOPRAZOLE [...] History Recorded Encounter Status:Closed by JOSE LUIS [facility]DA [facility]: 01/02/2018 Status: COMPLETED Source: [place] 12:00 AM [facility] REPOSITORY Patient Outreach (INTMWH) ABDIRIZAK FIGUEROA ([id number]) 1955 NF Date Time Provider Department 01/02/18 [facility] During your visit today, we recorded the following information about you: Allergies As of Date: 01/02/2018 Noted Allergy Reaction ADHESIVE TAPE (ROSINS) 10/15/2014 9 - Itching CONTRAST DYE 07/28/2009 Comments: possible FD AND C BLUE NO.1 07/28/2009 SERTRALINE 01/14/2004 Comments: zoloft, hot, elevated BP Date Reviewed: 10/25/2017 Reviewed by: Gladys Little Blender/Braze Applicator - Fully Assessed Visit Diagnosis:Medication management [Z79.899] Order(s):ALBUMIN/CREAT RATIO RND UR [SQUACR] Order #: [id number] FUTURE HGB A1C [GFQVK6A] Order #: [id number] FUTURE Prescriptions as of 01/02/2018 Sig: ALBUTEROL [...] urinary tract sympto*INVALID FOR* Encounter Status:Closed by ABEL SHANASHARRI on 05/25/18 COMPREHENSIVE METABOLIC Collected: 11/03/2017 Status: F Source: [place] 8:10 AM [facility] REPOSITORY Order Comment: Has Patient had X-rays [...] Performed By: #### L500.4050, L501.9520, L506.0400 #### [facility] [address] [place], [address] THYROID STIM HORMONE Collected: 11/03/2017 Status: F Source: [place] (TSH) 8:10 AM [facility] REPOSITORY Order Comment: Has Patient had X-rays with Contrast this admission? N TYPE CODE TESTS RESULT OUT OF RANGE REFERENCE UNITS LAB L501.9520 0.358-3.74 uIU/mL Normal TSH 2.13 Performed By: #### L500.4050, L501.9520, L506.0400 #### [facility] [address] [facility] [place], [address] T4 FREE DIRECT Collected: 11/03/2017 Status: F Source: [place] 8:10 AM [facility] REPOSITORY Order Comment: Has Patient had X-rays with Contrast this admission? N TYPE CODE TESTS RESULT OUT OF REFERENCE UNITS RANGE LAB L506.0400 0.76-1.46 ng/dL Low T4 FREE 0.66 DIRECT Performed By: #### L500.4050, L501.9520, L506.0400 #### [facility] [address] [facility] [place], [address] COMP METABOLIC PANEL Collected: 10/26/2017 Status: F Source: [place] 8:12 AM [facility] REPOSITORY TYPE CODE TESTS RESULT OUT OF REFERENCE UNITS RANGE LAB TP 6.3-8.0 g/dL Test sent to [facility]. Result Comment: Account Credited HIDE LAB ALB 3.9-4.9 g/dL Test Albumin sent to [facility]. Result Comment: Account Credited HIDE LAB CA 8.5-10.2 mg/dL Test Calcium, Total sent to [facility]. Result Comment: Account Credited HIDE LAB TBIL 0.2-1.3 mg/dL Bilirubin, Test Total sent to [facility]. Result Comment: Account Credited HIDE LAB ALKP 36-108 U/L Alkaline Test Phosphatase sent to [facility]. Result Comment: Account Credited HIDE LAB AST 14-40 U/L Test sent AST to [facility]. Result Comment: Account Credited HIDE LAB GLU 74-99 mg/dL Test sent Glucose to [facility]. Result Comment: Account Credited HIDE LAB BUN 9-24 mg/dL Test sent BUN to [facility]. Result Comment: Account Credited HIDE LAB CRET 0.73-1.22 mg/dL Creatinine Test sent to [facility]. Result Comment: Account Credited HIDE LAB NA 136-144 mmol/L Test Sodium sent to [facility]. Result Comment: Account Credited HIDE LAB K 3.7-5.1 mmol/L Test Potassium sent to [facility]. Result Comment: Account Credited HIDE LAB CL 97-105 mmol/L Test Chloride sent to [facility]. Result Comment: Account Credited HIDE LAB CO2 22-30 mmol/L Test sent CO2 to [facility]. Result Comment: Account Credited HIDE LAB AGAP 9-18 mmol/L Test sent Anion Gap to [facility]. Result Comment: Account Credited HIDE LAB ALT 10-54 U/L Test sent ALT to [facility]. Result Comment: Account Credited HIDE LAB GFRAA eGFR- Amer. Test sent to [facility]. Result Comment: Account Credited HIDE LAB GFRNAA . eGFR-All Test sent Other Races to [facility]. Result Comment: Account Credited HIDE LAB GFRPED eGFR-Ped. Test sent Factor to [facility]. Result Comment: Account Credited HIDE Performed By: #### CBCDIF #### [facility] [address] [place], [place] [address] FREE T4 Collected: 10/26/2017 Status: F Source: [place] 8:12 AM [facility] REPOSITORY TYPE CODE TESTS RESULT OUT OF REFERENCE UNITS RANGE LAB FT4 0.9-1.7 ng/dL Test Free sent to [address] Result Comment: Account Credited HIDE Performed By: #### CBCDIF #### [facility] [address] [place], [place] [address] TSH Collected: 10/26/2017 Status: F Source: [place] 8:12 AM [facility] REPOSITORY TYPE CODE TESTS RESULT OUT OF REFERENCE UNITS RANGE LAB TSH 0.400-5.500 uU/mL Test TSH sent to [facility]. Result Comment: Account Credited HIDE Performed By: #### CBCDIF #### [facility] [address] [place], [place] [address] CBC AND DIFFERENTIAL Collected: 10/26/2017 Status: F Source: [place] 8:12 AM [facility] REPOSITORY TYPE CODE TESTS RESULT OUT OF [...] k/uL Abs Lymph 1.87 LAB AMONO % [place]% 8.4 LAB AAMONO <0.87 k/uL Abs [place] 0.53 LAB AEOS % [place]% 6.3 LAB AAEOS <0.46 k/uL Abs [place] 0.40 LAB ABASO % Baso% 0.6 LAB AABASO <0.11 k/uL Abs Baso 0.04 Performed By: #### CBCDIF #### [facility] [address] [place], [place] [address] PROGRESS Observed: 10/25/2017 Status: COMPLETED Source: [place] 2:21 PM [facility] REPOSITORY HNO ID: [id number] Author: Saira (Damon) Older Service: (none) Author [...] witnessed apnea. Recently had appointment with his motor power connector on 09/19. EKG and stress test done due to fatigue and SOB. Both tests were normal, motor power connector does not feel these symptoms are cardiac. [...] 06/16/2017 Added automatically from request for surgery [id number] - Impaired fasting glucose 07/15/2016 - Myalgia [...] distal transverse - COLONOSCOP W/ OR W/O [facility] SPEC 07/06/10 Normal - COLONOSCOP W/ OR W/O [facility] SPEC 06/20/2017 Colonoscopy - EGD W/O [facility] SPECIMEN W/BX 07/06/10 gastritis - EGD W/O [facility] SPECIMEN W/BX 10/07/14 duodenitis, gastritis, esophagitis - EGD W/O [facility] SPECIMEN W/BX 09/13/2016 continued inflammation - HEMORRHOIDECT [...] No alarm symptoms or exam findings. Manager Utilization does not believe symptoms are cardiac related [...] agreeable to treatment plan. Saira Ham CNP CNOV Observed: 10/25/2017 Status: COMPLETED Source: [place] 2:00 PM [facility] REPOSITORY Office Visit (INTMWS) ABDIRIZAK FIGUEROA ([id number]) 1955 M NFR Date Time Provider Department [...] witnessed apnea. Recently had appointment with his motor power connector on 09/19. EKG and stress test done due to fatigue and SOB. Both tests were normal, motor power connector does not feel these symptoms are cardiac. [...] 06/16/2017 Added automatically from request for surgery [id number] - Impaired fasting glucose 07/15/2016 - Myalgia [...] distal transverse - COLONOSCOP W/ OR W/O [facility] SPEC 07/06/10 Normal - COLONOSCOP W/ OR W/O [facility] SPEC 06/20/2017 Colonoscopy - EGD W/O BRS [...] No alarm symptoms or exam findings. Manager Utilization does not believe symptoms are cardiac related [...] Patient agreeable to treatment plan. Saira Ham, COMPUTER GAME DESIGNER Referring Provider: SELF [[id number]] Allergies As of Date: 10/25/2017 Noted Allergy Reaction ADHESIVE TAPE (ROSINS) 10/15/2014 9 - Itching CONTRAST DYE 07/28/2009 Comments: possible FD AND C BLUE NO.1 07/28/2009 SERTRALINE 01/14/2004 Comments: zoloft, hot, elevated BP Date Reviewed: 10/25/2017 Reviewed by: Gladys Little Blender/Braze Applicator - Fully Assessed Reason for Visit: wants [...] Rfl: CBC + DIFF [SQCBCDIF] Order #: [id number] FUTURE COMP METABOLIC PANEL [SQCMP] Order #: [id number] FUTURE TSH BLD [SQTSH] Order #: [id number] FUTURE T4 FREE/FREE THYROX [SQFT4] Order #: [id number] FUTURE Prescriptions as of 10/25/2017 Sig: GABAPENTIN [...] on file. Encounter Status:Closed by SAIRA HAM DAMON on 10/25/17 STRESS REPORT Observed: 10/03/2017 Status: F Source: [place] 3:12 PM [facility] REPOSITORY [facility] [place] [address] MR#: [id number] Acct: [id number] Name: ABDIRIZAK FIGUEROA Rep #: [id number] : 1955 62 From: Momo Costa MD Primary Care: Jose Luis Miranda MD Status: REG CLI Ordering Dr: Sex: Eula Noble Stress Test Report Date: 10/03/2017 Procedure: Exercise [...] functional capacity This note was generated with Collactiveation software. It may contain incorrect words, spelling, and punctuation that were not noted in checking the note before signing. 10/03/17 1512 <Electronically signed by Momo Costa MD> Date Momo Costa MD CC: Holly Cohen MD; Jose Luis Miranda MD Date Dictated: 10/03/17 1509 Date Transcribed: 10/03/17 150 Digital Watch Assembler: PM Signed PROGRESS Observed: 09/20/2017 Status: COMPLETED Source: [place] 12:09 PM [facility] [place] REPOSITORY HNO ID: [id number] Author: Jose Luis Miranda Service: (none) Author Type: Physician Type: Progress Notes Filed: 09/20/2017 2:04 PM Note Text: This note was created using Twinglyriter. Subjective Abdirizak Figueroa is a 62 year [...] MD PROGRESS Observed: 09/19/2017 Status: COMPLETED Source: [place] 9:33 AM CLINIC OTHER CAMPUS REPOSITORY O ID: [id number] Author: Holly Cohen Service: (none) Author Type: Physician Type: Progress Notes Filed: 09/19/2017 4:48 PM Note Text: PERTINENT CARDIAC HISTORY [facility] - CABGx3 2012 HTN HL ADHERENCE TO GUIDELINES CASIMIRO-I or ARB for HF with prior LVEF<40 (NQF 0081) - N/A ASA or Plavix for ASHD (NQF 0067) - met Beta jey for ASHD with prior MD or prior LVEF<40 (NQF 0070) - N/A [...] treatment plan. This note was generated using [employer] voice recognition system, and there may be [...] 06/16/2017 Added automatically from request for surgery [id number] - Impaired fasting glucose 07/15/2016 - Myalgia [...] distal transverse - COLONOSCOP W/ OR W/O [facility] SPEC 07/06/10 Normal - COLONOSCOP W/ OR W/O BRS SPEC 06/20/2017 Colonoscopy - EGD W/O BRS SPECIMEN W/BX 07/06/10 gastritis - EGD W/O BRS SPECIMEN W/BX 10/07/14 duodenitis, gastritis, esophagitis - EGD W/O [facility] SPECIMEN W/BX 09/13/2016 continued inflammation - HEMORRHOIDECT [...] MD CNOV Observed: 09/19/2017 Status: COMPLETED Source: [place] 9:00 AM CLINIC OTHER CAMPUS REPOSITORY Office Visit (AGCARDWST) ABDIRIZAK FIGUEROA ([id number]) 1955 M NFR Date Time Provider Department 09/19/17 9:00 AM HOLLY COHEN During your visit today, we recorded the following information about you: Pulse Blood pressure Weight Height 73/minute 120/84 109.2 kg 1.778 m Holly Cohen MD 09/19/2017 4:48 PM Signed PERTINENT CARDIAC HISTORY AHSD - CABGx3 2011 HTN HL ADHERENCE TO GUIDELINES CASIMRIO-I or ARB for HF with prior LVEFANDlt;40 (NQF 0081) - N/A ASA or Plavix for ASHD (NQF 0067) - met Beta jey for ASHD with prior MD or prior LVEFANDlt;40 (NQF 0070) - N/A [...] treatment plan. This note was generated using [employer] voice recognition system, and there may be some incorrect words, spellings, and punctuation that were not noted in checking the note before saving. DIAGNOSIS FOR VISIT: ASHD Hypertension Exercise intolerance HISTORY OF PRESENT ILLNESS Abidrizak Figueroa returns for follow-up of his coronary [...] 06/16/2017 Added automatically from request for surgery [id number] - Impaired fasting glucose 07/15/2016 - Myalgia [...] distal transverse - COLONOSCOP W/ OR W/O [facility] SPEC 07/06/10 Normal - COLONOSCOP W/ OR W/O [facility] SPEC 06/20/2017 Colonoscopy - EGD W/O [facility] SPECIMEN W/BX 07/06/10 gastritis - EGD W/O [facility] SPECIMEN W/BX 10/07/14 duodenitis, gastritis, esophagitis - EGD W/O [facility] SPECIMEN W/BX 09/13/2016 continued inflammation - HEMORRHOIDECT [...] the following areas and commit to making terminal manager changes. EAT A WHOLE FOOD, PLANT BASED [...] in your area. 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 EAT A WHOLE FOOD, PLANT BASED [...] Status:Closed by HOLLY COHEN MD on 09/19/17 ALLERGIES ALLERGIES DATE TYPE / CODE NAME / CODE REACTION SEVERITY SOURCE 08/31/2018 Drug adhesive Rash Unknown [place] Allergy/416 tape/[id number](R Community 684761([facility] ED CT) Repository 10/15/2014 Chemical/42 ADHESIVE TAPE ITCHING [facility] [id number](SNO (ROSINS) [facility] [place] [facility]) Repository 07/28/2009 DRUG CONTRAST DYE [facility] INGREDI/419 [place] 391024(SNOM Repository ED CT) 07/28/2009 DRUG/[id number] FD AND C BLUE [facility] 003(SNOMED NO.[address] [place] [address]) Repository 06/16/2004 DRUG CORTISONE [facility] INGREDI419 [place] 282247(SNOM Repository ED CT) 01/14/2004 [facility] [place] 533319(SNOM Repository ED CT) NG/[id number] ADHESIVE TAPE [facility] 6(SNOMED ([employer]) [facility] CT) Repository NG/[id number] CONTRAST DYE [facility] 6([facility] CT) Repository NG/[id number] CORTISONE [facility] 6([facility] CT) Repository NG/[id number] FD AND C BLUE [facility] 6(SNOMED NO.[address]) Repository NG/[id number] SERTRALINE [facility] 6(Biopharmacopae System CT) Repository ENCOUNTERS ENCOUNTERS ADMIT/DISCHARGE ACCOUNT NUMBER ADMITTING ENCOUNTER LOCATION SOURCE CLASS 09/03/2018/09/03/[id number] ding:SDCRoom Repository : AC08 08/13/2018/08/15/[id number] Repository 08/09/2018/08/10/20 [id number] Ambulatory [address] Repository 07/17/2018/07/18/20 [id number] Ambulatory [address] Repository 07/10/2018/07/10/[id number] Repository 07/10/2018 [id number] [facility] ding:LABSPEC Repository 06/28/2018 [id number] [facility] ding:LABSPEC Repository 06/28/2018/06/28/20 [id number] Ambulatory [address] Repository 01/15/2018/01/17/20 [id number] Ambulatory [address] [place] Repository 11/03/2017 [id number] Ambulatory [facility] ding:LABSPEC Repository 10/26/2017/10/27/19 [id number] Ambulatory [address] Repository 10/25/2017/10/26/19 [id number] Ambulatory [address] Repository 10/03/2017 [id number] Ambulatory [facility] ding:CVS Repository 10/03/2017 [id number] Ambulatory BMS[facility]: [facility] Repository 09/20/2017/09/20/19 [id number] Ambulatory [address] Repository 09/19/2017/09/19/19 [id number] Ambulatory [address] Repository 09/19/2017/09/19/19 [id number] Ambulatory [address] MEDICAL Repository CENTERBuildi ng:BRII PAYERS PAYERS ENCOUNTER GUARANTOR PAYER SUBSCRIBER SOURCE 09/03/2018 ABDIRIZAK Ch Primary ABDIRIZAK [id number] S Insurance:[facility]: Community [place] MEDICAREPolicy [id number] Number: Repository [address]Ioj: 330 [id number] [phone] Date:5649-29-75OQ [address] [address]NC: 09/03/2018 Secondary NOT GIVENUNK [place] Insurance:SELF PAY [facility] Number: Effective Repository Date:2018-08-28 07/10/2018 ABDIRIZAK Ch Primary ABDIRIZAK [id number] S Insurance:[facility]: Community [place] MEDICAREPolicy [id number] Number: Repository [address]Wge: 330 [id number] [phone] (HP) Date:3718-14-44MF [address] [address]VJ: 07/10/2018 Secondary NOT GIVENUNK [place] Insurance:SELF PAY [facility] Number: Effective Repository Date:2018-07-10 06/28/2018 ABDIRIZAK J Primary ABDIRIZAK ROMAN S Insurance:[facility] [place]: [facility] [id number] Number: Repository [address]Qwh: 330 [id number] [phone] (HP) Date:4372-87-90[address] me [address]BI: 06/28/2018 Secondary NOT GIVENUNK [place] Insurance:SELF PAY [facility] Number: Effective Repository Date:2018-06-28 11/03/2017 Abdirizak Ch Primary Abdirizak Alonzo [id number] S Insurance:[facility] DuncanDOB: Community [place] MEDICAREPolicy [id number] Number: Repository [address]Tvy: 330 [id number] [phone] (HP) Date:8216-15-22ET [address] [place] [address]LI: 11/03/2017 Secondary NOT GIVENUNK [place] Insurance:SELF PAY [facility] Number: Effective Repository Date:2017-11-03 10/03/2017 Abdirizak J Primary Abdirizak Alonzo [id number] S Insurance:[facility] CarolinaDOB: [place] MEDICAREPolicy [id number] Number: Repository [address]Znr: 330 [id number] [phone] (HP) Date:0584-25-27SU [address] [place] [address]FS: 10/03/2017 Secondary NOT GIVENUNK [place] Insurance:SELF PAY [facility] Number: Effective Repository Date:2017-09-19 10/03/2017 Abdirizak J Primary Abdirizak Alonzo [id number] S Insurance:[facility] DuncanDOB: [place] MEDICAREPolicy [id number] Number: Repository [address]Qdp: 330 [id number] [phone] (HP) Date:9695-13-96AL [address] [place] [address] 46[address]CC: 10/03/2017 Secondary NOT GIVENUNK [place] Insurance:SELF PAY [facility] Number: Effective Repository Date:2017-10-03 09/19/2017 ABDIRIZAK Ch Primary Insurance:[facility]: MEDICAREPolicy DUNCANDOB: [facility] [id number] S Number: [id number] Repository [place]PECT [id number] [place] Date: [address]Kpr: ()
== END 2018-09-03 10:10 | disposition home or self-care (01) ==
LOC: SDC 07:37 → AC 07:44
PROVIDERS: Family Provider Internal Medicine; PCP Internal Medicine; Referring Provider Anesthesiology Pain Medicine; Visit Provider Anesthesiology Pain Medicine
PROC: 3E0S3BZ Introduction of Anesthetic Agent into Epidural Space, Percutaneous Approach (ICD-10-PCS; CPT 62282; principal; 2018-09-03 08:55)
DX: M51.17 Intervertebral disc disorders with radiculopathy, lumbosacral region (principal); M48.07 Spinal stenosis, lumbosacral region; I25.10 Atherosclerotic heart disease of native coronary artery without angina pectoris; J45.909 Unspecified asthma, uncomplicated; E11.9 Type 2 diabetes mellitus without complications; F17.220 Nicotine dependence, chewing tobacco, uncomplicated; E78.00 Pure hypercholesterolemia, unspecified; Z95.1 Presence of aortocoronary bypass graft; Z79.51 Long term (current) use of inhaled steroids; Z79.82 Long term (current) use of aspirin; Z79.2 Long term (current) use of antibiotics; Z79.84 Long term (current) use of oral hypoglycemic drugs; Z79.891 Long term (current) use of opiate analgesic; Z79.899 Other long term (current) drug therapy
CPT/HCPCS: 62323; 64520; 64483; 77003; 82962; J7120; J3490

== ENCOUNTER → 2018-09-18 11:43 | Outpatient (CLI) | payer MEDICARE, SELFPAY ==
[2018-09-03 08:06] VITALS: BMI 33.3
--- NOTE | 2018-09-18 11:47 | RAD_ITS ---
STUDY: X-RAY - LUMBOSACRAL SPINE REASON FOR EXAM: Male, 63 years old. Back pain. TECHNIQUE: 5 view(s) of the lumbosacral spine were obtained. COMPARISON: None FINDINGS: Normal lumbar lordosis. There is mild levoscoliosis. There is grade 1 retrolisthesis of L2 over L3 and L3 over L4. There is multilevel endplate spondylosis of the lumbar vertebrae. There is severe disc space narrowing of L3-L4. Normal visualized bilateral sacral ala, sacroiliac joints, and visualized sacrum. There is atherosclerotic calcification of the abdominal aorta. RAD/L/S Spine Min 4 Views IMPRESSION: Degenerative changes of the spine, as detailed above. Electronically Signed: Parvez Johns MD at 9:28 EST Tel , Service support ,
== END ==
PROVIDERS: Family Provider Internal Medicine; PCP Internal Medicine; Referring Provider Anesthesiology Pain Medicine; Visit Provider Anesthesiology Pain Medicine
DX: M54.5 Low back pain (principal); M25.551 Pain in right hip
CPT/HCPCS: 72110

== ENCOUNTER 2018-10-15 06:22 | Day surgery (SDC) | payer MEDICARE, SELFPAY ==
[2018-10-15 06:49] VITALS: BP 109/78; PULSE 66; RESP 16; TEMP 36.6; O2SAT 95; BMI 34.2
[2018-10-15 07:10] LABS: Bedside Glucose 126 mg/dL (70-110)
--- NOTE | 2018-10-15 07:47 | RAD_ITS ---
STUDY: X-RAY - LUMBAR SPINE REASON FOR EXAM: Male, 63 years old. Fluoroscopic guided lumbar facet injection on the right at L3-4 and L4-5 TECHNIQUE: 4 view(s) of the lumbar spine were obtained. COMPARISON: None FINDINGS: 4 views were obtained during fluoroscopic guided right lumbar facet injection at L3-4 and L4-5. For more complete information recommend correlation with procedural notes. RAD/Lumbar Spine 2 or 3 Views IMPRESSION: Fluoroscopic guided right facet injections at L3-4 and L4-5 Electronically Signed: Julio Singh MD at 23:58 EST , Service support ,
[2018-10-15] MEDS: Bupivacaine 0.25% 30 ML Vial (07:58)
[2018-10-15] MEDS: MethylPREDNISolone Acetate 80 MG/ML Vial (07:58)
[2018-10-15 08:05] VITALS: BP 109/78; BP 128/81; PULSE 73; RESP 16; TEMP 36.4; O2SAT 96
[2018-10-15 08:10] VITALS: BP 109/78; BP 117/76; PULSE 72; RESP 16; O2SAT 98
--- NOTE | 2018-10-15 08:11 | PCM.OPRPT ---
Problem List (1) Spondylosis of lumbosacral region without myelopathy or radiculopathy Status: Chronic (2) Degeneration of intervertebral disc of lumbosacral region Status: Chronic Report of Operation Date of Procedure: 10/15/18 Pre-Operative Diagnosis: Lumbosacral spondylosis, lumbosacral degenerative disc disease, lumbar facet arthropathy Post-Operative Diagnosis: Lumbosacral spondylosis, lumbosacral degenerative disc disease, lumbar facet arthropathy Surgery/Procedure Performed:: Right-sided lumbar facet steroid injection L3, L4, L5, S1 Description of Surgical Findings:: PROCEDURE: Right-sided lumbar facet steroid injection L3, L4, L5, S1 PREOPERATIVE DIAGNOSIS: Lumbosacral spondylosis, lumbosacral degenerative disc disease, and lumbar facet arthropathy POSTOPERATIVE DIAGNOSIS: Lumbosacral spondylosis, lumbosacral degenerative disc disease, and lumbar facet arthropathy ANESTHESIA: MAC COMPLICATIONS: None BLOOD LOSS: Minimal PROCEDURE IN DETAIL: History and physical today was reviewed. Risks and benefits of the procedure were explained. The patient understood, agreed to our procedure, and informed consent was obtained. IV inserted per routine protocol. The patient was taken to the operating room, placed in a prone position with a pillow positioned underneath the abdomen. The right side of his lower back was prepped and draped in a sterile fashion using iodine x3. Under fluoroscopy guidance, on AP view, L3 through S1 vertebral bodies were visualized. Skin and subcutaneous tissues were anesthetized with approximately 5 mL of 1% lidocaine using a 25-gauge regular needle. Under direct visualization with fluoroscopy at approximately 25-degree angle, starting on the right L3, ending on the right S1, passing through the L4-L5 using a 22-gauge 3 1/2-inch spinal needle, the needle was advanced via the skin. The tip of the needle was maneuvered and directed towards the superior and medial gutter of the transverse process at the vicinity of the medial branch. Once the tip of the needle was in contact with the bone, the needle pulled approximately 2 mm off the bone. After negative aspiration of blood with CSF and confirmation of AP as well as oblique view, a total of 8 mL of preservative-free 0.25% Marcaine with 80 mg of Depo-Medrol was injection in divided doses between those 4 levels. The needles were then removed intact. The patient experienced no signs or symptoms intrathecal, intravascular injection. The patient experienced no paraesthesia. The procedure was completed without any apparent difficult, any complication. The patient appeared to tolerate well. ASSESSMENT AND PLAN: This is a 63-year-old male with lumbosacral spondylosis, lumbosacral degenerative disc disease, and lumbar facet arthropathy, status post right-sided lumbar facet steroid injection L3 through S1. The patient will continue his current medications. The patient will follow in approximately 2 weeks for reevaluation
--- NOTE | 2018-10-15 08:14 | OP.PCM_ITS ---
Problem List (1) Spondylosis of lumbosacral region without myelopathy or radiculopathy Status: Chronic (2) Degeneration of intervertebral disc of lumbosacral region Status: Chronic Report of Operation Date of Procedure: 10/15/18 Pre-Operative Diagnosis: Lumbosacral spondylosis, lumbosacral degenerative disc disease, lumbar facet arthropathy Post-Operative Diagnosis: Lumbosacral spondylosis, lumbosacral degenerative disc disease, lumbar facet arthropathy Surgery/Procedure Performed:: Right-sided lumbar facet steroid injection L3, L4, L5, S1 Description of Surgical Findings:: PROCEDURE: Right-sided lumbar facet steroid injection L3, L4, L5, S1 PREOPERATIVE DIAGNOSIS: Lumbosacral spondylosis, lumbosacral degenerative disc disease, and lumbar facet arthropathy POSTOPERATIVE DIAGNOSIS: Lumbosacral spondylosis, lumbosacral degenerative disc disease, and lumbar facet arthropathy ANESTHESIA: MAC COMPLICATIONS: None BLOOD LOSS: Minimal PROCEDURE IN DETAIL: History and physical today was reviewed. Risks and benefits of the procedure were explained. The patient understood, agreed to our procedure, and informed consent was obtained. IV inserted per routine protocol. The patient was taken to the operating room, placed in a prone position with a pillow positioned underneath the abdomen. The right side of his lower back was prepped and draped in a sterile fashion using iodine x3. Under fluoroscopy guidance, on AP view, L3 through S1 vertebral bodies were visualized. Skin and subcutaneous tissues were anesthetized with approximately 5 mL of 1% lidocaine using a 25-gauge regular needle. Under direct visualization with fluoroscopy at approximately 25-degree angle, starting on the right L3, ending on the right S1, passing throu gh the L4-L5 using a 22-gauge 3 1/2-inch spinal needle, the needle was advanced via the skin. The tip of the needle was maneuvered and directed towards the superior and medial gutter of the transverse process at the vicinity of the medial branch. Once the tip of the needle was in contact with the bone, the needle pulled approximately 2 mm off the bone. After negative aspiration of blood with CSF and confirmation of AP as well as oblique view, a total of 8 mL of preservative-free 0.25% Marcaine with 80 mg of Depo- Medrol was injection in divided doses between those 4 levels. The needles were then removed intact. The patient experienced no signs or symptoms intrathecal, intravascular injection. The patient experienced no paraesthesia. The procedure was completed without any apparent difficult, any complication. The patient appeared to tolerate well. ASSESSMENT AND PLAN: This is a 63-year-old male with lumbosacral spondylosis, lumbosacral degenerative disc disease, and lumbar facet arthropathy, status post right-sided lumbar facet steroid injection L3 through S1. The patient will continue his current medications. The patient will follow in approximately 2 weeks for reevaluation
[2018-10-15 08:15] VITALS: BP 109/78; BP 127/79; PULSE 67; RESP 16; O2SAT 95
[2018-10-15 08:20] VITALS: BP 109/78; BP 119/74; PULSE 67; RESP 16; TEMP 36.6; O2SAT 98
[2018-10-15 08:38] VITALS: BP 109/78
== END 2018-10-15 08:40 | disposition home or self-care (01) ==
LOC: SDC 06:25 → AC 06:28
PROVIDERS: Family Provider Internal Medicine; PCP Internal Medicine; Referring Provider Anesthesiology Pain Medicine; Visit Provider Anesthesiology Pain Medicine
PROC: 3E0T3BZ Introduction of Anesthetic Agent into Peripheral Nerves and Plexi, Percutaneous Approach (ICD-10-PCS; CPT 64520; principal; 2018-10-15 07:45)
DX: M47.817 Spondylosis without myelopathy or radiculopathy, lumbosacral region (principal); M51.37 Other intervertebral disc degeneration, lumbosacral region; M47.816 Spondylosis without myelopathy or radiculopathy, lumbar region; M96.1 Postlaminectomy syndrome, not elsewhere classified; M47.22 Other spondylosis with radiculopathy, cervical region; I25.10 Atherosclerotic heart disease of native coronary artery without angina pectoris; E11.9 Type 2 diabetes mellitus without complications; K21.9 Gastro-esophageal reflux disease without esophagitis; E78.00 Pure hypercholesterolemia, unspecified; G47.30 Sleep apnea, unspecified; J45.990 Exercise induced bronchospasm; F17.220 Nicotine dependence, chewing tobacco, uncomplicated; Z95.1 Presence of aortocoronary bypass graft; Z79.51 Long term (current) use of inhaled steroids; Z79.2 Long term (current) use of antibiotics; Z79.82 Long term (current) use of aspirin; Z79.84 Long term (current) use of oral hypoglycemic drugs; Z79.891 Long term (current) use of opiate analgesic; Z79.899 Other long term (current) drug therapy
CPT/HCPCS: 64520; 64483; 72100; 82962; J7120

== ENCOUNTER → 2018-11-05 13:15 | Outpatient (CLI) | payer MEDICARE, SELFPAY ==
[2018-10-15 06:49] VITALS: BMI 34.2
[2018-11-05 14:44] LABS: Hemoglobin A1c 7.2 % (4.2-6.3)
[2018-11-05 14:49] LABS: Thyroid Stim Hormone (TSH) 2.57 uIU/mL (0.358-3.74)
== END ==
PROVIDERS: Family Provider Internal Medicine; PCP Internal Medicine; Referring Provider Internal Medicine; Visit Provider Internal Medicine
DX: E11.9 Type 2 diabetes mellitus without complications (principal); Z79.899 Other long term (current) drug therapy
CPT/HCPCS: 83036; 84443

== ENCOUNTER → 2019-04-09 | Outpatient (CLI) | payer MEDICARE, SELFPAY ==
[2019-04-09 11:25] LABS: ALB/GLOB Ratio 1.2 RATIO (0.9-2.4); AST(SGOT) 19 U/L (15-37); Alanine Aminotransfer ALT/SGPT 35 U/L (16-61); Albumin, Serum 3.9 g/dL (3.2-5.0); Alkaline Phosphatase 128 U/L (45-117); Anion Gap 5 (5-15); BUN 24 mg/dL (7-18); BUN/Creat Ratio 24.4 RATIO (10-20); Calcium,Total 8.9 mg/dL (8.5-10.1); Chloride 109 mmol/L (98-107); Cholesterol 156 mg/dL (200); Creatinine, Serum 0.98 mg/dL (0.70-1.30); EST Glomerular Filtration Rate 81 mL/min (>60); Est Glom Filt Rate - Afr Amer 98 mL/min (>60); Globulin 3.3 g/dL (2.2-4.2); Glucose 116 mg/dL (74-106); High Density Lipoprotein 48 mg/dL; Potassium 4.2 mmol/L (3.5-5.1); Protein, Total 7.2 g/dL (6.4-8.2); Sodium Level 142 mmol/L (136-145); Triglycerides 61 mg/dL; Very Low Density Lipoprotein 12 mg/dL (5-40)
[2019-04-09 11:29] LABS: Hemoglobin A1c 6.6 % (4.2-6.3)
== END | disposition home or self-care (01) ==
LOC: LABSPEC 10:55
PROVIDERS: Family Provider Internal Medicine; PCP Internal Medicine; Referring Provider Internal Medicine; Visit Provider Internal Medicine
DX: E11.9 Type 2 diabetes mellitus without complications (principal)
CPT/HCPCS: 80053; 80061; 83036

== ENCOUNTER → 2019-04-17 | Outpatient (CLI) | payer MEDICARE, SELFPAY ==
[2019-04-17 13:18] LABS: Microalbumin,Random Urine < 5.0 mg/L (NO RANGE EST.)
== END | disposition home or self-care (01) ==
LOC: LAB 12:15
PROVIDERS: Family Provider Internal Medicine; PCP Internal Medicine; Referring Provider Internal Medicine; Visit Provider Internal Medicine
DX: E11.9 Type 2 diabetes mellitus without complications (principal)
CPT/HCPCS: 82043; 82570

== ENCOUNTER → 2019-05-06 | Outpatient (CLI) | payer MEDICARE, SELFPAY ==
[2019-05-06 16:55] LABS: Absolute Lymphocyte Count 2.43 X10^3/uL (0.83-4.51); Absolute Neutrophil Count 4.6 X10^3/uL (2.0-7.7); Basophil# 0.03 X10^3/uL; Basophil% 0.4 % (0-1); Eosinophil# 0.24 X10^3/uL; Hematocrit 42.8 % (40-54); Hemoglobin 14.1 g/dL (13.0-16.5); Lymphocyte # 2.43 X10^3/ul (4.0); Lymphocyte % 30.6 % (19-41); Mean Corp Hgb Conc 32.9 g/dL (32-36); Mean Corpuscular Hgb 29.1 pg (27.0-32.0); Mean Corpuscular Volume 88.2 fL (80-94); Mean Platelet Vol. 8.9 fl (6.2-12.0); Monocyte# 0.64 X10^3/uL; Monocyte% 8.1 % (0-10); NRBC Flagged by Analyzer 0 % (0-5); Neutrophil # 4.58 X10^3/uL (2.7-7.7); Neutrophil % 57.6 % (47-70); Platelet Count 265 K/mm3 (150-450); RBC Distribution Width CV 13.1 % (11.6-14.6); Red Blood Count 4.85 M/mm3 (4.6-6.2); White Blood Count 7.9 K/mm3 (4.4-11.0)
[2019-05-06 17:18] LABS: ALB/GLOB Ratio 1.2 RATIO (0.9-2.4); AST(SGOT) 24 U/L (15-37); Alanine Aminotransfer ALT/SGPT 36 U/L (16-61); Alkaline Phosphatase 102 U/L (45-117); Anion Gap 7 (5-15); BUN 19 mg/dL (7-18); BUN/Creat Ratio 19.7 RATIO (10-20); Calcium,Total 9.2 mg/dL (8.5-10.1); Chloride 107 mmol/L (98-107); Creatinine, Serum 0.96 mg/dL (0.70-1.30); EST Glomerular Filtration Rate 83 mL/min (>60); Est Glom Filt Rate - Afr Amer 100 mL/min (>60); Globulin 3.4 g/dL (2.2-4.2); Glucose 85 mg/dL (74-106); PSA,Total - Annual Screen 0.96 ng/mL (0.00-4.00); Potassium 3.7 mmol/L (3.5-5.1); Protein, Total 7.4 g/dL (6.4-8.2); Sodium Level 142 mmol/L (136-145); Thyroid Stim Hormone (TSH) 3.24 uIU/mL (0.358-3.74)
[2019-05-07 13:54] LABS: Hepatitis C Antibody Non-Reactive (Nonreactive)
== END | disposition home or self-care (01) ==
LOC: POLAB3 14:26
PROVIDERS: Visit Provider Family Medicine Geriatric Medicine
DX: R53.83 Other fatigue (principal); Z13.89 Encounter for screening for other disorder
CPT/HCPCS: 36415; 80053; 84153; 84443; 85025; 86803; G0103

== ENCOUNTER → 2019-05-20 | Outpatient (CLI) | payer MEDICARE, SELFPAY ==
--- NOTE | 2019-05-20 08:41 | US_ITS ---
PROCEDURES: ULTRASOUND AORTA REASON FOR EXAM: Male, 64 years old. AAA screening. TECHNIQUE: Ultrasound evaluation of the aorta was performed with real-time and static bobby-scale imaging. COMPARISON: None. FINDINGS: There is elongation and tortuosity of the abdominal aorta. Aorta measures: Proximal 2.0 cm. Middle 1.8 cm. Distal 1.6 cm. Aorta measure transversely: Proximal 1.7 cm. Middle 1.8 cm. Distal 1.5 cm. Right iliac artery measures: 1.1 cm. Right iliac artery measure transversely: 1.3 cm. Left iliac artery measures: 1.1 cm. Left iliac artery measure transversely: 1.8 cm. Mild aneurysmal dilatation of the left common iliac artery.. US/Aorta IMPRESSION: 1. No abdominal aortic aneurysm. 2. Mild aneurysmal dilatation of the left common iliac artery measuring 1.1 x 1.8 cm. Electronically Signed: Hardy Khan MD at 15:20 EDT , Service support ,
--- NOTE | 2019-05-20 09:56 | NM_ITS ---
CLINICAL: 64-year-old diabetic male with suspected gastroparesis. SEMI-SOLID PHASE 99m Tc SULFUR COLLOID GASTRIC EMPTYING STUDY COMPARISON: None available FINDINGS: The patient was administered 1.1 mCi of 99m Tc sulfur colloid mixed with oatmeal and consumed per os. Image acquisitions in the anterior-posterior projections for a total of 60 minutes. There is prompt visualization of the stomach. There is no gastroesophageal reflux identified. The T1/2 linear fit was calculated to be 32.23 minutes, (Normal: 12-56 minutes). NM/Gastric Emptying Study IMPRESSION: 1. NORMAL 99m Tc sulfur colloid semi-solid phase (oatmeal) gastric emptying imaging examination. A. There is normal and preserved semi-solid phase gastric emptying compared to normal controls. (Indio et al, J Nucl Med Tech 38: 186, 2010). Electronically Signed: Leroy Sinclair DO at 23:35 EDT Tel , Service support ,
== END | disposition home or self-care (01) ==
LOC: US 08:38
PROVIDERS: Referring Provider Family Medicine Geriatric Medicine; Visit Provider Family Medicine Geriatric Medicine
DX: I71.4 Abdominal aortic aneurysm, without rupture (principal); Z13.89 Encounter for screening for other disorder; K31.84 Gastroparesis
CPT/HCPCS: 76775; 78264; A9541

== ENCOUNTER → 2019-06-24 | Outpatient (CLI) | payer MEDICARE, SELFPAY ==
--- NOTE | 2019-06-24 13:12 | RAD_ITS ---
STUDY: X-RAY CHEST REASON FOR EXAM: Male, 64 years old. Shortness of breath and cough. TECHNIQUE: PA and lateral views of the chest. COMPARISON: None. FINDINGS: Minimal increased markings at the lung bases suggestive of a linear atelectasis and/or scar. There is no demonstrated pleural abnormality. Sternal cerclage wires and vascular clips are present from a prior sternotomy and coronary artery bypass graft procedure (CABG). Normal mediastinum and audra. Normal visualized pulmonary arteries. There is atherosclerotic calcification of the aortic arch with tortuosity. There are mild degenerative changes of the visualized thoracic spine. Normal visualized ribs, clavicles, and shoulders. There is no demonstrated abnormality of the visualized soft tissue structures of the upper abdomen. RAD/Chest PA and Lateral IMPRESSION: Minimal increased markings at the lung bases suggestive of linear atelectasis and/or scarring. Electronically Signed: Jaspreet Armstrong, at 13:35 EST , Service support ,
== END | disposition home or self-care (01) ==
LOC: RAD 13:10
PROVIDERS: Family Provider Family Medicine Geriatric Medicine; PCP Family Medicine Geriatric Medicine; Referring Provider Family Medicine Geriatric Medicine; Visit Provider Family Medicine Geriatric Medicine
DX: R05 Cough (principal); R68.83 Chills (without fever)
CPT/HCPCS: 71046; 87633

== ENCOUNTER → 2019-07-25 12:45 | Outpatient (CLI) | payer MEDICARE, SELFPAY ==
[2019-07-09 07:24] VITALS: BMI 31.6
--- NOTE | 2019-07-25 12:46 | ECHOCS_ITS ---
Reason For Study: DYSPNEA Procedure This was a 2D Doppler, Color Flow transthoracic echocardiogram. The study was technically difficult. Contrast injection was performed. Exam performed in department. Left Ventricle Normal LV size. Left ventricular systolic function is normal. The estimated ejection fraction is 60 %. Stage 1 diastolic dysfunction. No regional wall motion abnormalities noted. Right Ventricle Normal right ventricle. Normal systolic function. Atria Normal left atrium. Normal right atrium. Mitral Valve Normal mitral valve. Tricuspid Valve Normal tricuspid valve. Mild (1+) tricuspid valve insufficiency. Pulmonary artery systolic pressure is 33 mmHg. Aortic Valve Trisinus/trileaflet aortic valve. Mild focal aortic valve calcification. Peak aortic valve gradient 24 mmHg. Mean aortic valve gradient 15 mmHg. Calculated aortic valve area (continuity equation) is 1.5 cm2. Mild (1+) aortic valve insufficiency. Pulmonic Valve Normal pulmonic valve. Great Vessels Normal aortic root. The pulmonary artery is normal size. Normal inferior vena cava. Pericardium/Pleural No pericardial effusion. Medication 22 gauge I.V. with prn adaptor inserted into right arm. Diluted definity 3.5ml given slow IV push to enhance endocardial definition. MMode/2D Measurements & Calculations LVIDd: 4.9 cm IVSd: 1.0 cm LVOT diam: 2.0 cm LVIDs: 3.3 cm LVPWd: 1.1 cm RVDd: 4.1 cm FS: 32.0 % LVOT area: 3.2 cm2 Ao root diam: 4.0 cm LAV(MOD-bp): 55.8 ml EDV(MOD-sp4): 131.6 ml LAV(MOD-bp) Indexed: 25.2 ml/m2 ESV(MOD-sp4): 43.6 ml LAV(MOD-sp2): 60.6 ml EF(MOD-sp4): 66.8 % LAV(MOD-sp4): 51.5 ml EDV(MOD-sp2): 93.2 ml SV(MOD-sp4): 88.0 ml SV(MOD-sp2): 57.5 ml EF(MOD-sp2): 61.7 % LA dimension(2D): 5.1 cm Aortic Valve Planimetry: 1.6 cm2 LA A4 area: 18.7 cm2 RA A4 area: 19.6 cm2 Time Measurements MV dec time: 0.25 sec Doppler Measurements & Calculations MV E max leodan: 79.3 cm/sec Lat Peak E' Leodan: 11.6 cm/sec Med Peak E' Leodan: 7.6 cm/sec MV A max leodan: 114.1 cm/sec E/E' lat: 6.9 E/E' med: 10.5 MV E/A: 0.70 Ao V2 max: 245.6 cm/sec AI max leodan: 355.7 cm/sec LV V1 max: 118.6 cm/sec Ao max P.1 mmHg AI max P.6 mmHg LV V1 max P.6 mmHg Ao V2 mean: 183.1 cm/sec LV V1 mean P.1 mmHg Ao mean P.7 mmHg AI dec slope: 254.4 cm/sec2 LV V1 mean: 83.0 cm/sec Ao V2 VTI: 52.7 cm AI P1/2t: 409.5 msec LV V1 VTI: 25.0 cm PHUC(I,D): 1.5 cm2 PHUC(V,D): 1.5 cm2 SV(LVOT): 79.6 ml TR max leodan: 272.3 cm/sec TR max P.7 mmHg Interpretation Summary Normal LV size. Left ventricular systolic function is normal. The estimated ejection fraction is 60 %. Stage 1 diastolic dysfunction. Mean aortic valve gradient 15 mmHg. Contrast injection was performed. Ordering Physician: Jon Cast Referring Physician: LYNDA HUTSON [facility] Performed By: Heidy Tirado, RDCS, RVT
== END ==
PROVIDERS: Family Provider Family Medicine Geriatric Medicine; PCP Family Medicine Geriatric Medicine; Referring Provider Internal Medicine Cardiovascular Disease; Visit Provider Internal Medicine Cardiovascular Disease
DX: R06.09 Other forms of dyspnea (principal); R06.02 Shortness of breath; Z95.1 Presence of aortocoronary bypass graft
CPT/HCPCS: 93306; Q9957; A4216; C8929

== ENCOUNTER → 2019-08-02 09:40 | Outpatient (CLI) | payer MEDICARE, SELFPAY ==
[2019-07-09 07:24] VITALS: BMI 31.6
[2019-08-02 12:29] LABS: Absolute Lymphocyte Count 2.42 X10^3/uL (0.83-4.51); Absolute Neutrophil Count 4.2 X10^3/uL (2.0-7.7); Basophil# 0.04 X10^3/uL; Basophil% 0.5 % (0-1); Eosinophil# 0.11 X10^3/uL; Eosinophils% 1.5 % (0-5); Hematocrit 43.1 % (40-54); Lymphocyte # 2.42 X10^3/ul (4.0); Mean Corp Hgb Conc 32.5 g/dL (32-36); Mean Corpuscular Hgb 29.1 pg (27.0-32.0); Mean Corpuscular Volume 89.6 fL (80-94); Mean Platelet Vol. 8.5 fl (6.2-12.0); Monocyte# 0.51 X10^3/uL; NRBC Flagged by Analyzer 0 % (0-5); Neutrophil # 4.21 X10^3/uL (2.7-7.7); Neutrophil % 57.5 % (47-70); Platelet Count 273 K/mm3 (150-450); RBC Distribution Width CV 12.9 % (11.6-14.6); RBC Distribution Width SD 42.3 fl (35.1-43.9); Red Blood Count 4.81 M/mm3 (4.6-6.2); White Blood Count 7.3 K/mm3 (4.4-11.0)
[2019-08-02 12:47] LABS: Vitamin D,25 Hydroxy 33.6 ng/mL (29.95-100.01)
[2019-08-02 12:50] LABS: ALB/GLOB Ratio 1.3 RATIO (0.9-2.4); AST(SGOT) 23 U/L (15-37); Alanine Aminotransfer ALT/SGPT 37 U/L (16-61); Albumin, Serum 4.2 g/dL (3.2-5.0); Alkaline Phosphatase 102 U/L (45-117); Anion Gap 3 (5-15); BUN 25 mg/dL (7-18); Calcium,Total 8.6 mg/dL (8.5-10.1); Chloride 105 mmol/L (98-107); EST Glomerular Filtration Rate 79 mL/min (>60); Est Glom Filt Rate - Afr Amer 96 mL/min (>60); Globulin 3.2 g/dL (2.2-4.2); Glucose 98 mg/dL (74-106); Protein, Total 7.4 g/dL (6.4-8.2); Sodium Level 139 mmol/L (136-145); Thyroid Stim Hormone (TSH) 2.38 uIU/mL (0.358-3.74)
== END ==
PROVIDERS: Family Provider Family Medicine Geriatric Medicine; PCP Family Medicine Geriatric Medicine; Visit Provider Family Medicine Geriatric Medicine
DX: E11.65 Type 2 diabetes mellitus with hyperglycemia (principal); E55.9 Vitamin D deficiency, unspecified; R53.83 Other fatigue
CPT/HCPCS: 36415; 80053; 82306; 84443; 85025

== ENCOUNTER 2019-08-16 05:05 | Emergency (ER) | payer MEDICARE, SELFPAY ==
[2019-07-09 07:24] VITALS: BMI 31.6
[2019-08-16 05:06] VITALS: BP 150/84; PULSE 90; RESP 18; TEMP 37.4; O2SAT 96; BMI 33.6
[2019-08-16 05:08] VITALS: TEMP 37.4
--- NOTE | 2019-08-16 05:13 | RAD_ITS ---
STUDY: X-RAY CHEST REASON FOR EXAM: Male, 64 years old. COUGH, SOB AND BODY ACHES SINCE 08/13/19 TECHNIQUE: Frontal and lateral views of the chest. COMPARISON: None. FINDINGS: The lungs are clear and expanded. There is no demonstrated pleural abnormality. Sternal cerclage wires and vascular clips are present from a prior sternotomy and coronary artery bypass graft procedure (CABG). Normal mediastinum and audra. Normal visualized pulmonary arteries. Normal visualized aortic arch and descending thoracic aorta. Normal visualized thoracic spine. There is degenerative osteoarthritis of the bilateral shoulders. There is no demonstrated abnormality of the visualized soft tissue structures of the upper abdomen. RAD/Chest PA and Lateral IMPRESSION: Degenerative changes, as described above. No demonstrated acute cardiopulmonary process. Electronically Signed: Donald Villegas, at 6:40 EST Tel , Service support ,
--- NOTE | 2019-08-16 05:14 | ED.DCSUM_ITS ---
History of Present Illness Chief Complaint: Shortness of Breath Informant: Patient Narrative: Patient stated for the last 4 days has had nonproductive cough fatigue weakness fever T-max 102. History of pneumonia in the past. Did get a flu shot. He feels weak and fatigued. He is using [id number]. Current severity is mild to moderate. Denies any shortness of breath other than with his coughing fits. Denies wheezing. History of asthma. - Past Medical History (1) Dyspnea on exertion Status: Acute (2) Fatigue Status: Acute (3) Palpitation Status: Acute (4) Atherosclerotic heart disease of [place] coronary artery without angina pectoris Status: Chronic Comment: CABG x 3 MORGAN-LAD, SVG-LCx, SVG-Ramus 09/14/11 (5) Hyperlipemia Status: Chronic (6) Nonrheumatic aortic (valve) stenosis with insufficiency Status: Chronic (7) H/O coronary artery bypass surgery Status: Resolved Comment: CABG x 3 MORGAN-LAD, SVG-LCx, SVG-Ramus 09/14/11 Past Medical History - Allergies and Home Meds Allergies/Adverse Reactions: Allergies Iodinated Contrast Media Allergy (Verified 07/09/19 07:24) hives adhesive tape Adverse Reaction (Verified 07/09/19 07:24) Rash sertraline [From Zoloft] Adverse Reaction (Verified 07/09/19 07:24) Unknown Primary Care Physician: Weston Gutierrez Chi, MD [Primary Care Provider] - Prior records reviewed: Yes Past Medical History: - - See problem list Surgical History: - - Reviewed Lives: With Family Smoking Status: Never smoker Alcohol: None Drugs: None Review of Systems General: Reports: Fever. Denies: Chills, Sweats Eyes: Denies: Visual changes - bilaterally, Diplopia ENT: Reports: Sore throat. Denies: Rhinorrhea Cardiovascular: Denies: Chest pain, Palpitations Respiratory: Reports: Dyspnea, Cough. Denies: Dyspnea on exertion Gastrointestinal: Denies: Abdominal pain, Nausea, Vomiting, Diarrhea, Melena, Hematochezia Genitourinary: Denies: Dysuria, Hematuria, Frequency Musculoskeletal: Reports: Myalgias. Denies: Back pain, Extremity Pain Skin: Denies: Rash, Wounds Neurological: Reports: Weakness. Denies: Headache, Numbness Physical Exam Vital Signs/Narrative: Vital Signs Temp Pulse Resp BP Pulse Ox 08/16/19 05:08 99.3 F H 08/16/19 05:06 99.3 F H 90 18 150/84 H 96 General: Well nourished, Well developed, No Acute Distress Head: Normocephalic, Atraumatic Eyes: Perrl, EOMI ENT: Moist mucous membranes, No rhinorrhea Neck: Supple, Nontender Cardiovascular: Regular rate, Regular rhythm, No murmurs Respiratory: No distress, CTA bilaterally, Chest nontender Abdomen: Soft, Nontender, Nondistended, Normal bowel sounds Back: Nontender, Normal Inspection Extremities: Nontender, No edema Skin: Normal color, No rash Neurological: Alert, Oriented x3, Cranial nerves II-XII grossly intact, Normal Strength, Normal Sensation Psychological: Normal affect, Normal Mood Diagnostic/Tx/Re-eval - Medical Decision Making Patient resting comfortably. Does not appear in distress. Chest x-ray and rapid influenza obtained. Rapid flu negative. Chest x-ray shows chronic changes with no acute infiltrates. I feel this is viral bronchitis. Patient will continue albuterol Mucinex and liquid honey. I feel this will have to run its course. I do not feel he needs antibiotics. We will follow-up as an outpatient ED Disposition - Plan for ED Patient: Disposition: Home or Assisted Living Diagnosis: Acute bronchitis Instructions: BRONCHITIS, No Antibiotic (Adult) Referrals: Weston Gutierrez Chi, MD [Primary Care Provider] -
[2019-08-16 06:00] VITALS: BP 138/30; PULSE 90; RESP 18; O2SAT 94
== END 2019-08-16 06:02 | disposition home or self-care (01) ==
PROVIDERS: Emergency Provider Emergency Medicine; Family Provider Family Medicine Geriatric Medicine; PCP Family Medicine Geriatric Medicine
DX: J20.9 Acute bronchitis, unspecified (principal); J45.909 Unspecified asthma, uncomplicated; I25.10 Atherosclerotic heart disease of native coronary artery without angina pectoris; E78.5 Hyperlipidemia, unspecified; Z95.1 Presence of aortocoronary bypass graft; Z79.51 Long term (current) use of inhaled steroids; Z79.899 Other long term (current) drug therapy
CPT/HCPCS: 71046; 87804; 99282

== ENCOUNTER → 2019-08-19 15:41 | Outpatient (CLI) | payer MEDICARE, SELFPAY ==
[2019-08-16 05:06] VITALS: BMI 33.6
== END ==
PROVIDERS: Family Provider Family Medicine Geriatric Medicine; PCP Family Medicine Geriatric Medicine; Referring Provider Family Medicine Geriatric Medicine; Visit Provider Family Medicine Geriatric Medicine
DX: R68.83 Chills (without fever) (principal)
CPT/HCPCS: 87633

== ENCOUNTER → 2019-09-30 | Outpatient (CLI) | payer MEDICARE, SELFPAY ==
--- NOTE | 2019-09-30 12:30 | RAD_ITS ---
STUDY: X-RAY - ABDOMEN/PELVIS REASON FOR EXAM: Male, 64 years old. Constipation x2 days, abdominal pain. TECHNIQUE: 4 AP supine views of the abdomen and pelvis. COMPARISON: None. FINDINGS: Normal visualized lung bases. There is an abundance of fecal material throughout the colon. There is no demonstrated free abdominal air. The visualized liver, spleen and kidneys are grossly normal in size and morphology. Normal soft tissue structures. There are diffuse degenerative changes of the visualized lumbar spine. RAD/Abd Inc Decub and/or Erect IMPRESSION: Abundant constipation Electronically Signed: Jesse Desai DO at 10:15 EST Tel , Service support ,
== END | disposition home or self-care (01) ==
LOC: RAD 12:29
PROVIDERS: PCP Family Medicine Geriatric Medicine; Referring Provider Family Medicine Geriatric Medicine; Visit Provider Family Medicine Geriatric Medicine
DX: K56.41 Fecal impaction (principal)
CPT/HCPCS: 74019

== ENCOUNTER → 2020-01-30 16:31 | Outpatient (CLI) | payer MEDICARE, SELFPAY ==
--- NOTE | 2020-01-30 16:38 | CT_ITS ---
STUDY: CT BRAIN WITH AND WITHOUT CONTRAST REASON FOR EXAM: Male, 64 years old. VICTORIA, PAIN FOLLOWING A BIOPSY ON RT SIDE OF FACE, NEW DX OF BASAL CELL SKIN CA, HX-DB RADIATION DOSAGE (If Supplied By Facility): CTDIvol = ( 44.99 ) mGy, DLP = ( 1592.22 ) mGycm TECHNIQUE: Transaxial CT imaging of the brain was performed pre and post contrast administration. The examination was performed with intravenous administration of ml of 100mL Isovue-300 contrast material. Individualized dose optimization techniques were used for this CT. COMPARISON: None. FINDINGS: Normal soft tissue structures. Normal calvarium. There is mild cerebral atrophy with widening of the extra-axial spaces and ventricular dilatation. There are areas of decreased attenuation within the white matter tracts of the supratentorial brain, consistent with microvascular disease changes. There are small punctate calcifications of the basal ganglia which are seen in the aging brain as a normal variant. Normal brainstem. Normal cerebellum. No abnormal meningeal or dural or parenchymal enhancement is seen. No suspicious lesions are seen. Small perivascular space of the left external capsule region noted. There is no intracranial hemorrhage. There are no findings of an acute ischemic infarction. Normal visualized paranasal sinuses. CT/Brain/Head W/WO Contrast IMPRESSION: 1. Chronic involutional changes of the brain. 2. No abnormal meningeal or dural or parenchymal enhancement is seen. No suspicious lesions are seen. 3. MRI of the brain with contrast can be obtained if clinical symptoms persist. Electronically Signed: Arnav Nobles MD at 18:46 EDT , Service support ,
[2020-01-30 17:05] LABS: CREATININE FINGERSTICK 0.6 mg/dL (0.70-1.30); EGFR FINGERSTICK > 60.0000 mL/min (>60)
[2020-01-30 17:32] LABS: Absolute Lymphocyte Count 3.12 X10^3/uL (0.83-4.51); Absolute Neutrophil Count 5.4 X10^3/uL (2.0-7.7); Basophil# 0.05 X10^3/uL; Basophil% 0.5 % (0-1); Eosinophils% 2.1 % (0-5); Hematocrit 44.2 % (40-54); Hemoglobin 14.3 g/dL (13.0-16.5); Lymphocyte # 3.12 X10^3/ul (4.0); Lymphocyte % 32.4 % (19-41); Mean Corp Hgb Conc 32.4 g/dL (32-36); Mean Corpuscular Hgb 29.4 pg (27.0-32.0); Mean Corpuscular Volume 90.9 fL (80-94); Mean Platelet Vol. 8.9 fl (6.2-12.0); Monocyte# 0.87 X10^3/uL; NRBC Flagged by Analyzer 0 % (0-5); Neutrophil # 5.37 X10^3/uL (2.7-7.7); Neutrophil % 55.7 % (47-70); Platelet Count 308 K/mm3 (150-450); RBC Distribution Width CV 12.7 % (11.6-14.6); RBC Distribution Width SD 41.5 fl (35.1-43.9); Red Blood Count 4.86 M/mm3 (4.6-6.2); White Blood Count 9.6 K/mm3 (4.4-11.0)
[2020-01-30 17:41] LABS: Erythrocyte Sedimentation Rate 11 mm/hr (0-20)
[2020-01-30 18:11] LABS: Anion Gap 6 (5-15); BUN 28 mg/dL (7-18); BUN/Creat Ratio 28.9 RATIO (10-20); CRP < 2.90 mg/L (0.0-3.0); Calcium,Total 9.9 mg/dL (8.5-10.1); Chloride 105 mmol/L (98-107); Creatinine, Serum 0.97 mg/dL (0.70-1.30); EST Glomerular Filtration Rate 82 mL/min (>60); Est Glom Filt Rate - Afr Amer 99 mL/min (>60); Glucose 83 mg/dL (74-106); Sodium Level 140 mmol/L (136-145)
== END ==
PROVIDERS: PCP Family Medicine Geriatric Medicine; Referring Provider Family Medicine Geriatric Medicine; Visit Provider Family Medicine Geriatric Medicine
DX: K08.9 Disorder of teeth and supporting structures, unspecified (principal); R68.84 Jaw pain
CPT/HCPCS: 36415; 70470; 80048; 85025; 85652; 86140; Q9967

== ENCOUNTER → 2020-04-03 | Outpatient (CLI) | payer MEDICARE, SELFPAY ==
--- NOTE | 2020-04-03 11:03 | RAD_ITS ---
STUDY: X-RAY - CERVICAL SPINE REASON FOR EXAM: Male, 64 years old. LEFT SIDED NECK PAIN, LEFT ARM PAIN, VICTORIA TECHNIQUE: 3 view(s) of the cervical spine were obtained. COMPARISON: July 17 2017 FINDINGS: Craniocervical junction relationship is preserved. However, odontoid is not seen. C7-T1 junction is not seen and cannot be evaluated. C2 through C7 are intact and located with normal mineralization and mild degenerative change. Prevertebral soft tissues are normal. RAD/Cerv Spine 2 or 3 Views IMPRESSION: Unremarkable Limited cervical spine. Electronically Signed: Guillermina Shaffer, at 21:05 EDT Tel , Service support ,
--- NOTE | 2020-04-03 11:03 | RAD_ITS ---
STUDY: X-RAY - LUMBAR SPINE REASON FOR EXAM: Male, 64 years old. LEG HEAVINESS, WEAKNESS -- LBP -- pt states laminectomy 6-7- years ago TECHNIQUE: 3 view(s) of the lumbar spine were obtained. COMPARISON: None FINDINGS: There is straightening of the normal lumbar lordosis. Mild to moderate levoscoliosis is present with moderate asymmetric disc space narrowing at multiple levels. Bulky anterior and paravertebral osteophytes are present at multiple levels. No visualized compression deformity or acute fracture There is atherosclerotic calcification of the abdominal aorta without a demonstrated aneurysm. RAD/Lumbar Spine 2 or 3 Views IMPRESSION: Degenerative changes of the spine, as detailed above. Electronically Signed: Arnav Nobles MD at 13:36 EDT , Service support ,
[2020-04-03 12:53] LABS: Absolute Lymphocyte Count 2.24 X10^3/uL (0.83-4.51); Absolute Neutrophil Count 4.3 X10^3/uL (2.0-7.7); Basophil# 0.04 X10^3/uL; Basophil% 0.5 % (0-1); Eosinophil# 0.19 X10^3/uL; Eosinophils% 2.6 % (0-5); Hematocrit 43.5 % (40-54); Hemoglobin 14.1 g/dL (13.0-16.5); Lymphocyte # 2.24 X10^3/ul (4.0); Lymphocyte % 30.4 % (19-41); Mean Corp Hgb Conc 32.4 g/dL (32-36); Mean Corpuscular Hgb 29.4 pg (27.0-32.0); Mean Corpuscular Volume 90.8 fL (80-94); Mean Platelet Vol. 8.8 fl (6.2-12.0); Monocyte# 0.59 X10^3/uL; NRBC Flagged by Analyzer 0 % (0-5); Neutrophil # 4.29 X10^3/uL (2.7-7.7); Neutrophil % 58.2 % (47-70); Platelet Count 275 K/mm3 (150-450); RBC Distribution Width CV 12.9 % (11.6-14.6); RBC Distribution Width SD 42.7 fl (35.1-43.9); Red Blood Count 4.79 M/mm3 (4.6-6.2); White Blood Count 7.4 K/mm3 (4.4-11.0)
[2020-04-03 13:14] LABS: ALB/GLOB Ratio 1.2 RATIO (0.9-2.4); AST(SGOT) 25 U/L (15-37); Alanine Aminotransfer ALT/SGPT 36 U/L (16-61); Albumin, Serum 4.1 g/dL (3.2-5.0); Alkaline Phosphatase 94 U/L (45-117); Anion Gap 3 (5-15); BUN 24 mg/dL (7-18); BUN/Creat Ratio 26.1 RATIO (10-20); Calcium,Total 9.1 mg/dL (8.5-10.1); Chloride 106 mmol/L (98-107); Creatinine, Serum 0.92 mg/dL (0.70-1.30); EST Glomerular Filtration Rate 87 mL/min (>60); Est Glom Filt Rate - Afr Amer 106 mL/min (>60); Globulin 3.4 g/dL (2.2-4.2); Glucose 93 mg/dL (74-106); Potassium 4.1 mmol/L (3.5-5.1); Protein, Total 7.5 g/dL (6.4-8.2); Sodium Level 138 mmol/L (136-145)
== END | disposition home or self-care (01) ==
LOC: POLAB3 10:52 → RAD 11:02
PROVIDERS: PCP Family Medicine Geriatric Medicine; Referring Provider Family Medicine Geriatric Medicine; Visit Provider Family Medicine Geriatric Medicine
DX: G83.10 Monoplegia of lower limb affecting unspecified side (principal); M54.2 Cervicalgia; R07.9 Chest pain, unspecified
CPT/HCPCS: 36415; 72040; 72100; 80053; 85025

== ENCOUNTER → 2020-05-07 | Outpatient (CLI) | payer MEDICARE, SELFPAY ==
[2020-05-07 15:03] LABS: Absolute Lymphocyte Count 2.07 X10^3/uL (0.83-4.51); Absolute Neutrophil Count 4.2 X10^3/uL (2.0-7.7); Basophil# 0.02 X10^3/uL; Basophil% 0.3 % (0-1); Eosinophils% 1.4 % (0-5); Hematocrit 41.8 % (40-54); Hemoglobin 13.8 g/dL (13.0-16.5); Lymphocyte # 2.07 X10^3/ul (4.0); Lymphocyte % 29.5 % (19-41); Mean Corpuscular Hgb 29.9 pg (27.0-32.0); Mean Corpuscular Volume 90.7 fL (80-94); Mean Platelet Vol. 8.6 fl (6.2-12.0); Monocyte% 8.6 % (0-10); NRBC Flagged by Analyzer 0 % (0-5); Neutrophil # 4.19 X10^3/uL (2.7-7.7); Neutrophil % 59.8 % (47-70); Platelet Count 275 K/mm3 (150-450); RBC Distribution Width CV 13.1 % (11.6-14.6); Red Blood Count 4.61 M/mm3 (4.6-6.2)
[2020-05-07 15:25] LABS: ALB/GLOB Ratio 1.2 RATIO (0.9-2.4); AST(SGOT) 26 U/L (15-37); Alanine Aminotransfer ALT/SGPT 41 U/L (16-61); Alkaline Phosphatase 118 U/L (45-117); Anion Gap 6 (5-15); BUN 26 mg/dL (7-18); BUN/Creat Ratio 29.2 RATIO (10-20); Calcium,Total 9.4 mg/dL (8.5-10.1); Chloride 108 mmol/L (98-107); Creatinine, Serum 0.89 mg/dL (0.70-1.30); EST Glomerular Filtration Rate 91 mL/min (>60); Est Glom Filt Rate - Afr Amer 110 mL/min (>60); Globulin 3.3 g/dL (2.2-4.2); Glucose 105 mg/dL (74-106); Protein, Total 7.3 g/dL (6.4-8.2); Sodium Level 140 mmol/L (136-145); Thyroid Stim Hormone (TSH) 1.74 uIU/mL (0.358-3.74)
[2020-05-07 15:56] LABS: Vitamin D,25 Hydroxy 55.8 ng/mL
== END | disposition home or self-care (01) ==
LOC: POLAB3 13:38
PROVIDERS: PCP Family Medicine Geriatric Medicine; Visit Provider Family Medicine Geriatric Medicine
DX: E11.65 Type 2 diabetes mellitus with hyperglycemia (principal); E55.9 Vitamin D deficiency, unspecified; R53.83 Other fatigue
CPT/HCPCS: 36415; 80053; 82306; 84443; 85025

== ENCOUNTER → 2020-05-11 | Outpatient (CLI) | payer MEDICARE, SELFPAY ==
--- NOTE | 2020-05-11 08:45 | NEURO ---
NCS and/or EMG Patient Report Ordering Doctor: Weston Gutierrez Chi DATE OF SERVICE: 05/11/20 Indication: Intermittent spasms and pain involving both upper extremities. No significant weakness or loss of sensation. Patient reports a history of bilateral carpal tunnel syndrome (status post release ~15 years ago), but notes that these symptoms are distinctly different. Findings: Nerve conduction studies were performed in the right and left upper extremities. The right median motor study recording the abductor pollicis brevis showed a normal amplitude, normal distal latency and normal conduction velocity. The right ulnar motor study recording the abductor digiti minimi showed a normal amplitude, normal distal latency and normal conduction velocity. No conduction block or focal slowing was present across the elbow. The right median sensory response recording digit two showed a normal amplitude, latency and conduction velocity. The right ulnar sensory response recording digit five showed a normal amplitude, latency and conduction velocity. The right radial sensory response recording over the extensor snuff box showed a normal amplitude, latency and conduction velocity. The left median motor study recording the abductor pollicis brevis showed a normal amplitude, normal distal latency and normal conduction velocity. The left ulnar motor study recording the abductor digiti minimi showed a normal amplitude, normal distal latency and normal conduction velocity. No conduction block or focal slowing was present across the elbow. The left median sensory response recording digit two showed a normal amplitude, latency and conduction velocity. The left ulnar sensory response recording digit five showed a normal amplitude, latency and conduction velocity. The left radial sensory response recording over the extensor snuff box showed a normal amplitude, latency and conduction velocity. Right median-ulnar mixed palmar latencies showed a normal median latency compared to the ulnar. Left median-ulnar mixed palmar latencies showed a normal median latency compared to the ulnar. Needle EMG of the right upper extremity and cervical paraspinal muscles was performed. No denervation was seen in any muscle. The right abductor pollicis brevis muscle revealed motor units which were slightly large amplitude, long duration with normal phases and a slightly reduced recruitment pattern. All other examined muscles demonstrated normal motor unit morphology, activation and recruitment patterns. Needle EMG of the left upper extremity and cervical paraspinal muscles was performed. No denervation was seen in any muscle. The left tricep revealed motor units that were large amplitude, long duration, polyphasic with reduced recruitment and normal activation. Similar, but more subtle, morphological changes were noted in the flexor carpi radialis. The left abductor pollicis brevis muscle revealed motor units which were slightly large amplitude and long duration with normal recruitment. All other examined muscles demonstrated normal motor unit morphology, activation and recruitment patterns. Impression: This is a mildly abnormal study. There is electrophysiologic evidence of a mild, chronic, left C7 radiculopathy. There is no active denervation to suggest ongoing axonal injury. In addition, the mild motor unit changes seen in the bilateral thenar muscles are of unclear significance. 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 Sergio Michael D.O.
== END | disposition home or self-care (01) ==
LOC: PSN 06:54
PROVIDERS: PCP Family Medicine Geriatric Medicine; Referring Provider Family Medicine Geriatric Medicine; Visit Provider Family Medicine Geriatric Medicine
DX: R20.2 Paresthesia of skin (principal)
CPT/HCPCS: 95886; 95913

== ENCOUNTER 2020-05-18 10:40 | Day surgery (SDC) | payer MEDICARE, SELFPAY ==
[2020-05-18] VITALS (8 sets, daily range): BP systolic 112–145; BP diastolic 62–101; PULSE 60–64; RESP 16–18; TEMP 36.2–36.7; O2SAT 92–98; BMI 31.8
--- NOTE | 2020-05-18 11:00 | RAD_ITS ---
CLINICAL HISTORY: Male, 65 years old. Lower back pain PROCEDURE: EPIDUROGRAM - Caudal block FLUOROSCOPY TIME (if supplied): (0:09) minutes. 2 Images. RADIATION DOSAGE (If Supplied By Facility): CTDIvol = ( ) mGy, DLP = ( ) mGycm TECHNIQUE: Under fluoroscopic guidance using sterile technique and after infiltration of the skin and subcutis soft tissues with 10 mL lidocaine 1% a 22-gauge needle is introduced in the lumbar epidural space at L4-5, 1 mL of air injected in the epidural space to ensure needle position then a mixture containing 80 mg of Depo-Medrol mixed with 3 mL lidocaine 0.25% were injected in the lumbar epidural space. RAD/Fluor Guidance for Spine Inj IMPRESSION: Successful lumbar epidural steroid injection under fluoroscopic guidance. Electronically Signed: Donald Villegas, at 11:11 EDT Tel , Service support ,
[2020-05-18] MEDS: Lactated Ringers 1,000 ML 100 ML IV (11:18)
[2020-05-18 11:30] LABS: Bedside Glucose 113 mg/dL (70-110)
[2020-05-18] MEDS: 0.9% Normal Saline (Pres. free 10 ML Vial (11:53)
[2020-05-18] MEDS: Bupivacaine 0.25% 30 ML Vial (11:53)
[2020-05-18] MEDS: MethylPREDNISolone Acetate 80 MG/ML Vial (11:53)
== END 2020-05-18 12:55 | disposition home or self-care (01) ==
LOC: SDC 10:44 → AC 10:48
PROVIDERS: PCP Family Medicine Geriatric Medicine; Referring Provider Anesthesiology Pain Medicine; Visit Provider Anesthesiology Pain Medicine
PROC: 3E0S3BZ Introduction of Anesthetic Agent into Epidural Space, Percutaneous Approach (ICD-10-PCS; CPT 62282; principal; 2020-05-18 12:15)
DX: M51.37 Other intervertebral disc degeneration, lumbosacral region (principal); M47.816 Spondylosis without myelopathy or radiculopathy, lumbar region; M47.817 Spondylosis without myelopathy or radiculopathy, lumbosacral region; M96.1 Postlaminectomy syndrome, not elsewhere classified; M47.812 Spondylosis without myelopathy or radiculopathy, cervical region; M54.12 Radiculopathy, cervical region; E11.9 Type 2 diabetes mellitus without complications; J45.909 Unspecified asthma, uncomplicated; E78.00 Pure hypercholesterolemia, unspecified; F17.220 Nicotine dependence, chewing tobacco, uncomplicated; Z79.84 Long term (current) use of oral hypoglycemic drugs; Z79.899 Other long term (current) drug therapy; Z95.1 Presence of aortocoronary bypass graft
CPT/HCPCS: 01992; 62323; 64520; 64483; 77003; 82962; J7120; J3490

== ENCOUNTER → 2020-05-20 | Outpatient (CLI) | payer MEDICARE, SELFPAY ==
[2020-05-18 11:10] VITALS: BMI 31.8
--- NOTE | 2020-05-18 17:20 | PCM.OPRPT ---
Report of Operation Date of Procedure: 05/18/20 Description of Surgical Findings:: PREOPERATIVE DIAGNOSIS: Lumbosacral radiculopathy, lumbosacral degenerative disc disease, lumbosacral spinal stenosis POSTOPERATIVE DIAGNOSIS: Lumbosacral radiculopathy, lumbosacral degenerative disc disease, lumbosacral spinal stenosis PROCEDURE PERFORMED: caudal epidural steroid injection. ANESTHESIA: MAC. BLOOD LOSS: Minimal. COMPLICATIONS: None. DESCRIPTION OF PROCEDURE: History and physical of today was reviewed. Risks and benefits of the procedure were explained. The patient understood and agreed to proceed. Informed consent was obtained. IV inserted per routine protocol. The patient was taken to the operating room and placed in the prone position with a pillow positioned underneath the abdomen. The lower back and tailbone area was prepped and draped in a sterile fashion using iodine x3. Under fluoroscopy guidance on a lateral view, the caudal space was identified. The skin and subcutaneous tissue was anesthetized with approximately 3 mL of 1% lidocaine using a 25-gauge regular needle. Under direct visualization with fluoroscopy, using a 22-gauge 3-1/2-inch spinal needle, the needle was advanced via the skin through the sacral hiatus. The tip of the needle was passed through the sacrococcygeal ligament and advanced to approximately S4 area. After negative aspiration of blood or CSF, a total of 3 mL of contrast was injected to confirm correct placement of the needle as well as cephalad spread. The spread was followed to approximately L5 area. After confirmation on AP as well as lateral view and repeated negative aspiration, a total of 15 mL of preservative-free 0.125% Marcaine with 80 mg of Depo-Medrol was injected easily. The needle was then removed intact. The patient experienced no sign or symptoms of intrathecal or intravascular injection. The patient experienced no paresthesia. The procedure was completed without any apparent difficulty or any complications. The patient appeared to tolerate it well. ASSESSMENT AND PLAN: This is a 65-year-old male with lumbosacral radiculopathy, lumbosacral degenerative disc disease, lumbosacral spinal stenosis status post caudal epidural steroid injection, patient will continue his current medications, patient will follow approximately 2 weeks for reevaluation.
--- NOTE | 2020-05-20 14:46 | NEURO ---
NCS and/or EMG Patient Report Ordering Doctor: Weston Gutierrez Chi DATE OF SERVICE: 05/20/20 Abdirizak Bates presents for electrodiagnostic testing of the lower limbs. He reports lower back pain with numbness and cramping in the legs for the past several months. Electrodiagnostic findings: Peroneal motor nerve demonstrates normal distal latency, amplitude and conduction velocity bilaterally. Normal tibial motor response bilaterally. Peroneal tibial F waves are within normal limits. Borderline prolonged H reflex bilaterally. Medial plantar responses are borderline prolonged. Electrodiagnostic impression: This is a normal electrodiagnostic study of the lower limbs. There is no electrodiagnostic evidence for peripheral polyneuropathy or lumbosacral radiculopathy. If there are any further questions, please do not hesitate to contact me.
== END | disposition home or self-care (01) ==
LOC: PSN 06:28
PROVIDERS: PCP Family Medicine Geriatric Medicine; Referring Provider Family Medicine Geriatric Medicine; Visit Provider Family Medicine Geriatric Medicine
DX: R20.0 Anesthesia of skin (principal)
CPT/HCPCS: 95886; 95913

== ENCOUNTER → 2020-07-06 06:27 | Outpatient (CLI) | payer MEDICARE, SELFPAY ==
[2020-06-29 09:00] VITALS: BMI 31.1
--- NOTE | 2020-07-06 06:31 | MRI_ITS ---
STUDY: MRI CERVICAL SPINE WITHOUT CONTRAST REASON FOR EXAM: Male, 65 years old. neck pain, radiculopathy, bilat arm pain,hand weakness, dizziness, balance issues, headaches TECHNIQUE: Standardized fat and water weighted pulse sequences were obtained in the sagittal and axial planes. COMPARISON: Previous cervical spine x-rays obtained on 04/03/2020 FINDINGS: Normal foramen magnum and brainstem-cervical cord junction. Normal craniovertebral junction. Normal anterior atlantoaxial articulation. Normal odontoid process. Normal cervical lordosis. Normal vertebral bodies and posterior osseous elements. C2-3: Normal endplates. Normal disc height, signal and morphology. Normal central canal and intervertebral neural foramina. C3-4: Normal endplates. Normal disc height, signal and morphology. Normal central canal and intervertebral neural foramina. C4-5: Normal endplates. A mild diffusely bulging disc is noted at this location. Normal central canal and intervertebral neural foramina. C5-6: Normal endplates. A mildly bulging disc is noted at this location. Normal central canal and intervertebral neural foramina. C6-7: Normal endplates. A diffusely bulging disc spur complex is seen at this location causing moderate relative central spinal stenosis. Normal central canal and intervertebral neural foramina. C7-T1: Normal endplates. Normal disc height, signal and morphology. Normal central canal and intervertebral neural foramina. Normal cervical cord. No evidence of a CHIARI I malformation is seen. Normal visualized soft tissue structures. MRI/Spine Cervical (Routine) IMPRESSION: A diffusely bulging disc is noted at the C6-7 intervertebral disc space level causing moderate central spinal stenosis. Electronically Signed: Narciso Murdock, at 8:34 EST Tel , Service support ,
== END ==
PROVIDERS: PCP Family Medicine Geriatric Medicine; Referring Provider Orthopaedic Surgery; Visit Provider Orthopaedic Surgery
DX: M50.123 Cervical disc disorder at C6-C7 level with radiculopathy (principal); M48.02 Spinal stenosis, cervical region
CPT/HCPCS: 72141

== ENCOUNTER 2020-09-03 13:08 | Observation (INO) | payer MEDICARE, SELFPAY ==
[2020-06-29 09:00] VITALS: BMI 31.1
[2020-08-25 18:01] VITALS: BMI 32.4
[2020-08-27 12:24] LABS: Absolute Lymphocyte Count 2.03 X10^3/uL (0.83-4.51); Absolute Neutrophil Count 4.6 X10^3/uL (2.0-7.7); Basophil# 0.05 X10^3/uL; Basophil% 0.7 % (0-1); Eosinophil# 0.18 X10^3/uL; Eosinophils% 2.4 % (0-5); Hematocrit 42.7 % (40-54); Hemoglobin 14.4 g/dL (13.0-16.5); Lymphocyte # 2.03 X10^3/ul (4.0); Lymphocyte % 27.4 % (19-41); Mean Corp Hgb Conc 33.7 g/dL (32-36); Mean Corpuscular Hgb 30.4 pg (27.0-32.0); Mean Corpuscular Volume 90.3 fL (80-94); Mean Platelet Vol. 8.6 fl (6.2-12.0); Monocyte# 0.58 X10^3/uL; Monocyte% 7.8 % (0-10); NRBC Flagged by Analyzer 0 % (0-5); Neutrophil # 4.55 X10^3/uL (2.7-7.7); Neutrophil % 61.3 % (47-70); Platelet Count 297 K/mm3 (150-450); RBC Distribution Width CV 12.4 % (11.6-14.6); Red Blood Count 4.73 M/mm3 (4.6-6.2); White Blood Count 7.4 K/mm3 (4.4-11.0)
[2020-08-27 12:46] LABS: Glucose 101 mg/dL (74-106)
[2020-08-27 13:20] LABS: HIV - WCH Non-Reactive (Nonreactive)
[2020-08-28 06:08] LABS: HEPATITIS B SURFACE AG Negative (Negative); Hepatitis A AB, Total Negative (Negative); Hepatitis A IgM Antibody Negative (Negative); Hepatitis B Core AB IgM Negative (Negative); Hepatitis B Core Ab Total Negative (Negative); Hepatitis C Ab <0.1 s/co ratio (0.0-0.9)
[2020-08-28 08:05] LABS: Hep B Surface Antibodies Non Reactive (.)
[2020-08-28 10:32] LABS: Anion Gap 5 (5-15); BUN 18 mg/dL (7-18); BUN/Creat Ratio 19.6 RATIO (10-20); Calcium,Total 9.6 mg/dL (8.5-10.1); Chloride 109 mmol/L (98-107); Creatinine, Serum 0.92 mg/dL (0.70-1.30); EST Glomerular Filtration Rate 87 mL/min (>60); Est Glom Filt Rate - Afr Amer 106 mL/min (>60); Glucose 95 mg/dL (74-106); Magnesium 2.2 mg/dL (1.6-2.6); Potassium 4.1 mmol/L (3.5-5.1); Sodium Level 140 mmol/L (136-145)
[2020-08-28 11:39] LABS: Hemoglobin A1c 6.2 % (3.8-5.6)
[2020-09-03] VITALS (11 sets, daily range): BP systolic 127–153; BP diastolic 60–87; PULSE 66–102; RESP 16–18; TEMP 36.4–38; O2SAT 93–100; BMI 31.4
--- NOTE | 2020-09-03 06:00 | HP_ITS ---
Intake Intake Visit Reasons: Cervical Spine Accompanied by: Spouse Is patient in pain?: Yes Allergies adhesive tape Allergy (Verified 08/25/20 18:03) Rash sertraline [From Zoloft] Adverse Reaction (Verified 08/25/20 18:03) Unknown Medications Aspirin [Adult Low Dose Aspirin EC] 81 mg PO DAILY 12/23/15 [History Confirmed 08/28/20] Atorvastatin Calcium [Lipitor] 80 mg PO QHS 12/23/15 [History Confirmed 08/28/20] Hydrocodone/Acetaminophen [Hydrocodon-Acetaminophen 5-325] 1 ea PO BID PRN PRN 12/23/15 [History Confirmed 08/28/20] traZODone [Desyrel] 50 - 100 mg PO QHS 12/23/15 [History Confirmed 08/28/20] Albuterol Inhaler [Ventolin Hfa (SP)] 1 - 2 puff INHALATION Q4H PRN PRN 08/31/18 [History Confirmed 08/28/20] Metformin HCl 500 mg PO BID 08/31/18 [History Confirmed 08/28/20] multivitamin 1 tab PO DAILY 07/09/19 [History Confirmed 08/28/20] naproxen 250 mg tablet 250 mg PO BID PRN 07/09/19 [History Confirmed 08/28/20] Baclofen [Lioresal] 10 mg PO PRN PRN 05/14/20 [History Confirmed 08/28/20] Gabapentin [Neurontin] 200 mg PO TID 05/14/20 [History Confirmed 08/28/20] Linacolotide [Linzess] 145 mcg PO PRN PRN 05/14/20 [History Confirmed 08/28/20] Ascorbic Acid [Vitamin C] 1,000 mg PO DAILY 08/10/20 [History Confirmed 08/28/20] Cholecalciferol (Vitamin D3) [Vitamin D3] 10 mcg PO DAILY 08/10/20 [History Confirmed 08/28/20] doxycycline hyclate 100 mg tablet tab PO 08/28/20 [History Confirmed 08/28/20] prednisone 10 mg tablet 10 mg PO DAILY tab 08/28/20 [History Confirmed 08/28/20] [facility] Medical History (Updated 08/25/20 @ 15:55 by Carson STRONG, PA) Atherosclerotic heart disease of [place] coronary artery without angina pectoris (Chronic) Hyperlipemia (Chronic) Nonrheumatic aortic (valve) stenosis with insufficiency (Chronic) Arthropathy of cervical facet joint (Chronic) Asthma (Chronic) Cervical spondylosis (Chronic) Degeneration of cervical disc without myelopathy (Chronic) Degeneration of intervertebral disc of lumbosacral region (Chronic) GERD (gastroesophageal reflux disease) (Chronic) Obesity (Chronic) Opioid dependence (Chronic) Radiculopathy of lumbosacral region (Chronic) Spinal stenosis of lumbosacral region (Chronic) Spondylosis of lumbosacral region without myelopathy or radiculopathy (Chronic) Type 2 diabetes mellitus (Chronic) Essential (primary) hypertension (Ruled-out) Surgical History H/O coronary artery bypass surgery (Resolved 09/14/11) History of back surgery (Resolved) History of carpal tunnel release (Resolved) History of herniorrhaphy (Resolved) History of left heart catheterization (Resolved 09/09/11) Family History Brother Heart disease Myocardial infarction 60's CAD (coronary artery disease) Father Myocardial infarction 65 CAD (coronary artery disease) Social History (Updated 08/28/20 @ 10:[address] Ventura Godoy DO) Smoking Status: Current every day smoker HPI Cervical Spine: Surgical H&P: Yes Details: Parts of this documentation were recorded by a scribe, this documentation accurately reflects the service provided and the decisions made by me, Dr. Ventura Godoy DO 08/28/20 0846. JARET BATES is a 65 year old M here today for his pre-op appointment. DOS is scheduled for: 09/03/2020. Mr. Bates is here for his preop. He is scheduled for ACDF at C6-7 6 days from now. His symptoms continue. However Dr. Gutierrez put him on steroids unfortunately now his pain is gone. We normally give them steroids at surgery but not before. Inferior at least steroids could lower the infection threshold of the patient. That he will quit taking the pills immediately. We will keep the surgery on the schedule. I will see him again at surgery. 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 I explained to him that the latter chance of that is increased at the C6-7 level. I answered all his questions and those of his I will see him again at surgery. Assessment & Plan Problems 1. HNP (herniated nucleus pulposus), cervical M50.20 Coding Level of Care Code Off vis,est,level 2 Diagnoses HNP (herniated nucleus pulposus), cervical M50.20 Time Spent (min) 20
[2020-09-03] MEDS: Lactated Ringers 1,000 ML 100 ML IV ×4 (06:19→16:49)
[2020-09-03] MEDS: Acetaminophen 500 MG Tablet 1000 MG PO (06:33)
[2020-09-03 07:26] LABS: Bedside Glucose 124 mg/dL (70-110)
--- NOTE | 2020-09-03 07:30 | DISC_PTH ---
PATIENT: JARET FIGUEROA LOC: MS3 U#:[id number] AGE/SX: 65/M ROOM: WI31 RE09/03/[address]: Dr. Dimas Clinton MD : 1955 BED: 1 DIS: 09/04/2020 SPEC #: [id number] RECD: 09/03/20 13:04 STATUS: CHYNA KIMBROUGH #: [id number] ZANE: 09/03/20 07:[address]: Ventura Godoy DEPT: SURGICAL PATHOLOGY RECD BY: Martha Cao ENTERED: 09/04/20 07:15 SP TYPE: DISC OTHR DR: MD Dr. Ventura Gramajo DO Dr. Nicholas F Kotsonis, MD Dr. Tai Chi Kwok, MD Tissues: Intervertebral disc, NOS Procedures: Decalcification bone/plaque Surgery Specimen Level III Comments: @ Ordering doctor for SUIII edited from to @ elissa SWEET at 09/04/20 1126 @ Submitting doctor edited from to @ by KEE at 09/04/20 1126 HEADER OPERATION: Anterior cervical fusion C6-C7 PRE-OP DIAGNOSIS: Herniated nucleus pulposus, cervical C6-C7 TISSUE SUBMITTED: Disc MICROSCOPIC DIAGNOSIS Cervical disc, C6-C7, discectomy: Fragments of intervertebral disc with degenerative change. AM:lucita 09/09/2020 MICROSCOPIC DESCRIPTION Slides are reviewed. GROSS DESCRIPTION Received in fixative is one container labeled with the patient's name and designated disc. The specimen consists of multiple irregular fragments of meredith, indurated tissue mixed with a few fragments of bone that in aggregate measure 3 x 2.5 x 0.3 cm. The specimen is totally submitted in one cassette after decalcification. / SJ:lucita 09/04/20 TC:5 CPT: 55951, 18587
--- NOTE | 2020-09-03 07:50 | RAD_ITS ---
STUDY: X-RAY - CERVICAL SPINE REASON FOR EXAM: Male, 65 years old. PRE OP PLACEMENT IN O.R. -- ANTERIOR C6-7 FUSION TECHNIQUE: Lateral view(s) of the cervical spine were obtained. COMPARISON: None FINDINGS: Single lateral intraoperative x-ray demonstrates surgical localizer device overlying C6 vertebral body. Endotracheal tube is partially visualized. Surgical retractor projects anteriorly. RAD/Spine 1 View Any Level IMPRESSION: Surgical localization at C6. Electronically Signed: Pan Suarez MD (Brooks) at 9:32 EST , Service support ,
[2020-09-03] MEDS: THROMBIN (RECOMBINANT) 20,000 UNIT VIAL 20000 UNIT TOPICAL (08:32)
[2020-09-03] MEDS: Heparin 10,000 UNITS/10 ML Vial 10000 UNITS (08:32)
[2020-09-03] MEDS: Cefazolin 2 GM in 0.9% Normal Saline 100 ML IV (08:32)
--- NOTE | 2020-09-03 08:57 | RAD_ITS ---
STUDY: X-RAY - LUMBAR SPINE REASON FOR EXAM: Male, 65 years old. IN O.R. TO VERIFY PLACEMENT -- ANTERIOR C6-7 FUSION TECHNIQUE: Lateral view(s) of the lumbar spine were obtained. COMPARISON: 09/03/2020 FINDINGS: Single lateral intraoperative x-ray demonstrates surgical localizer device C6-C7. Endotracheal tube is partially visualized. Surgical retractor projects anteriorly. RAD/Spine 1 View Any Level IMPRESSION: Surgical localization at C6-C7 Electronically Signed: Pan Suarez MD (Brooks) at 9:30 EST , Service support ,
--- NOTE | 2020-09-03 10:35 | RAD_ITS ---
STUDY: X-RAY - CERVICAL SPINE REASON FOR EXAM: Male, 65 years old. ANTERIOR C6-7 FUSION TECHNIQUE: Lateral view(s) of the cervical spine were obtained. COMPARISON: Earlier today FINDINGS: Single lateral immediate postoperative x-ray demonstrates anterior cervical fixation plate, screws and disc spacer at C5-C6. Endotracheal tube is partially visualized. RAD/Spine 1 View Any Level IMPRESSION: C5-C6 cervical fusion. Electronically Signed: Pan Suarez MD (Brooks) at 13:04 EST , Service support ,
--- NOTE | 2020-09-03 11:01 | PCM.OPRPT ---
Report of Operation Description of Surgical Findings:: Preoperative diagnosis: Herniated disc with foraminal stenosis C6-7 left Postoperative diagnoses: The same Procedure: #1 anterior cervical fusion C6-7 #2 insertion of cage at C6-7 #3 application of anterior spine plate C6-7 #4 BMA from right iliac crest Surgeon: Dr. Godoy blacksmith assistant: Mark STRONG Anesthesia: General endotracheal anesthesia administered by [facility] Estimated blood loss: 15 cc Drains: 1/4 inch Jose Complications: None Patient was taken to the OR where he was placed in the supine position on the operating table he was then placed under general endotracheal anesthesia neuro monitoring inserted there leads and a Gan catheter was inserted. A preoperative x-ray was taken with a needle marker in place to ensure that I would make the incision at the right level. This was then marked with a small laceration using the end of the needle in the midline. The neck was then prepped and draped in standard fashion. I then made an incision starting just across the middle and curving to the right to the edge of the right sternocleidomastoid muscle. Subcutaneous tissues were incised length of the skin incision. Note that the platysma on this particular patient was extremely thin so I simply cut across it with scissors. Was too thin to split longitudinally and try to put back together again. And went toward the midline and released the medial strap muscle along its edge I then started with complaints of first opening the superficial cervical fascia and then bluntly splitting the pretracheal fascia. To find the carotid pulse of course and I kept it lateral to her I was working. I then put a thyroid retractor in place removing the trachea and the esophagus toward the left and then I retracted the carotid sheath with my finger to the right this exposed the pre cervical fascia. Then split longitudinally and the disc thought to be C6-7 was identified. With a needle marker in place we then took a lateral x-ray to confirm that we were indeed at C6-7 which we were. It was then marked and the needle was removed I then cauterized the periosteum and the anterior longitudinal ligament above and below the space to make room for a plate. Cut the anterior annulus with a 15 blade removed it with pituitary rongeurs I then removed more disc from within the disc with pituitary rongeurs. I then used good curettes these were all microcurettes to start removing the cartilage off the endplates above and below all the way back to the uncinate process on the left side. Using a rose bur I then used the brain technique where I would bur followed by the instillation of cold saline. This was done repeatedly until the uncinate process was a very thin shell I then removed the the shell off of the base of the C7 nerve root with curettes. Checked the foramen with a nerve probe to assure that the pressure was indeed off of the C7 root which it was. Clearly decompressed the nerve root. And removed all remaining cartilage off both endplates thorough irrigation was carried out repeatedly I then took my measurements by using a trial cage we decided to use the bigger of the 2 sizes 14-1/2 x 16 wide 7 mm high cage following this I then used the broach to broach the space into good bleeding plates. Note that earlier I used a small incision over the right ASIS entered with the Jamshidi needle tamped into place and obtained 60 cc of BMA. This was handed off to the industrial hygiene technician we then spun it down and the plasma from the red cells and concentrated the stem cells in collected them. Concentrated between 8 and 10 times. I then placed the spongy allograft and filled the cage with it and soaked it in the patient's own stem cells. We then tamped it into place and countersunk it a couple of millimeters. I then used a 24 mm spider plate it was centered a holding pen was put in 1 corner of then used the awl to punch the first of the 4 holes I entered with a 16mm screw diagonally I then did the same thing in the space below that is the C7 vertebra using again the awl and then using the self-tapping 16mm screw the pin was then removed and another screw was placed there and in the last remaining 1 we used the awl on and then entered with a 16mm screw these were screwed down through the locking mechanisms of the plate. Was seen on the lateral projection on x-ray was found to be satisfactory with good position of the plate the screws and the cage. Thorough irrigation was carried out we then placed a amnionic membrane over the top of the plate to prevent adhesions onto the esophagus. Fourth inch Carlton was left in place the retraction instrumentation was removed and closure was begun we closed the medial border of the strap muscle above and below the drain with a couple of 5-0 Vicryl sutures the subcutaneous tissues were then closed along with the skin using a deep sutures with Vicryl. There was no need for outside stitches. A safety pin was placed through the Jose to prevent a suction into the wound and sterile dressings were applied. Patient was then recovered in the OR moved to his hospital bed and taken to recovery in satisfactory condition. This is the end of operative summary on Stanislaw Bates.
[2020-09-03 11:26] LABS: Bedside Glucose 136 mg/dL (70-110)
--- NOTE | 2020-09-03 14:52 | PCM.PN.HOSP ---
<Deny Amin - Last Filed: 09/03/20 14:52> Reason for Visit: Post op cervical C6-C7 fusion, cage insertion, atnerior spine plate, BMA right iliac crest for dx of herniated nucleus pulposus Subjective: Pt c/o mild headache BL temporal. No subjective fever/chills. No SOB/cough. Tolerating jello. No nausea/vomiting. Pt doing well with no issues at this time. Vitals/I&O's: Vital Signs Temp Pulse Resp BP Pulse Ox 98.7 F 102 H 16 137/75 H 97 09/03/20 12:39 09/03/20 12:39 09/03/20 12:39 09/03/20 12:39 09/03/20 12:39 Oxygen Flow Rate (L/min) 6 Oxygen Delivery Method Room Air Weight: 219 lb 5.759 oz Body Mass Index (BMI) 31.4 Finger Stick Blood Glucose 136 Intake and Output for Last 24 Hours 09/01/20 09/02/20 09/03/20 23:59 23:59 23:59 Intake Total 2216 / 2216 Output Total 1100 / 1100 Balance 1116 / 1116 General: Alert, Oriented x3, Cooperative HEENT: Atraumatic, PERRLA, EOMI, Normocephalic Neck: Supple, No JVD, Negative Carotid Bruits, - - bulky dressing to neck in place. Lungs: Clear to auscultation, Normal air movement Cardiovascular: Regular rate, No murmurs Abdomen: Bowel Sounds Present, Soft, Non Tender Extremities: No edema, Capillary Refill Less than 3 Seconds Skin: No rashes, No breakdown Musculoskeletal: No Tenderness to Palpation of Joints or Extremities Neurological: Cranial nerves II-XII grossly intact Psych/Mental Status: Normal Affect, Appropriate, Alert and oriented to time, place, person, mood and affect Microbiology Past 72 Hours 09/02/20 08:15 Interface Orders SARS-CoV-2 Antigen (Rapid) - Final Laboratory Results 09/03/20 06:05: POC Glucose 124 H 09/03/20 11:23: POC Glucose 136 H Current Medications Enteral Nutritional Formula (Ensure Surgery 237 Ml Liquid) 237 ml PO TIDCM [facility] Last Admin: 09/03/20 13:59 Dose: Not Given Documented by: Famotidine (Famotidine 20 Mg Tablet) 20 mg PO BID [facility] Lactated Ringer's () 1,000 mls @ 100 mls/hr IV .Q10H [facility] Last Admin: 09/03/20 10:15 Dose: 100 mls/hr Documented by: Lactated Ringer's () 1,000 mls @ 100 mls/hr IV .Q10H [facility] Last Admin: 09/03/20 13:54 Dose: Not Given Documented by: Cefazolin Sodium () 1 gm in 50 mls @ 100 mls/hr IV Q8H [facility] Stop: 09/04/20 00:59 Sodium Chloride () 250 mls @ 15 mls/hr IV .[id number] PRN PRN Reason: Saline Flush Sodium Chloride () 250 mls @ 15 mls/hr IV .[id number] PRN PRN Reason: Additional IVPB Infusion Insulin Human Lispro (Insulin Lispro 100 Unit/Ml Insuln.Pen) 1 - 6 unit SC Q4H PRN PRN; Protocol PRN Reason: BG>/= 180, SEE PROTOCOL Stop: 09/03/20 18:00 Morphine Sulfate (Morphine 4 Mg/Ml Syringe) 2 - 4 mg IV Q2H PRN PRN PRN Reason: Pain Score 6-10 Ondansetron HCl (Ondansetron 4 Mg/2 Ml Vial) 4 mg IV Q8H PRN PRN PRN Reason: NAUSEA Senna/Docusate Sodium (Senna/Docusate Sodium 1 Tablet) 2 tablet PO BID [facility] Sodium Chloride (0.9% Nacl Peripheral Flush Adult/Peds) 5 - 15 ml IV UD PRN PRN Reason: SALINE FLUSH Sodium Chloride (0.9% Saline Lock 10 Ml Syringe) 10 - 40 ml IV UD PRN PRN Reason: SALINE FLUSH Tramadol HCl (Tramadol 50 Mg Tablet) 50 - 100 mg PO Q6H PRN PRN PRN Reason: Pain Score 4-5 Zolpidem Tartrate (Zolpidem Tartrate 5 Mg Tablet) 5 mg PO QHS PRN PRN PRN Reason: INSOMNIA STROKE Vital Signs/Narrative: Vital Signs Temp Pulse Resp BP Pulse Ox 09/03/20 12:39 98.7 F 102 H 16 137/75 H 97 09/03/20 12:15 100.4 F H 78 18 142/80 H 95 09/03/20 12:00 68 18 145/80 H 97 09/03/20 11:45 68 18 144/85 H 100 09/03/20 11:30 67 18 153/86 H 100 09/03/20 11:15 71 18 135/83 H 100 09/03/20 11:07 97.5 F L 76 18 153/87 H 97 Medical Necessity - Tobacco Use Smoking Status: Current every day smoker Tobacco Use: Chew Assessment/Plan All Active Problems (Last Updated 07/30/19 @ 12:16 by Agnieszka Robb) Contact with or suspected exposure to other viral communicable disease (Acute) Acute sinusitis (Acute) Pre-operative cardiovascular examination (Acute) H/O coronary artery bypass surgery (Resolved 09/14/11) Fatigue (Acute) Palpitation (Acute) Essential (primary) hypertension (Ruled-out) 1. Herniated disc C6 C7 post op day #0 s/p final fusion , cage, plate, BMA right iliac crest - care as per Dr. Godoy. Doing well. Mild headache. 2. Dmt2 with obesity - hold metformin, continue sliding scale insulin, accuchecks. A1C 6.2. 3. HTN -stable 4. Asthma - albuterol prn. lungs clear at this time with no SOB. 5. HLD - resume statin at discharge DVT ppx: SCDs Thank you for the opportunity to participate in the care of this patient. This patient was seen by Deny Amin PA-C under the supervision of Dr. Cai. <Nataliya Cai - Last Filed: 09/03/20 17:11> Vitals/I&O's: Vital Signs Temp Pulse Resp BP Pulse Ox 98.1 F 71 16 127/60 H 94 09/03/20 14:39 09/03/20 14:39 09/03/20 14:39 09/03/20 14:39 09/03/20 14:39 Oxygen Flow Rate (L/min) 6 Oxygen Delivery Method Room Air Weight: 99.5 kg Body Mass Index (BMI) 31.4 Finger Stick Blood Glucose 136 Intake and Output for Last 24 Hours 09/01/20 09/02/20 09/03/20 23:59 23:59 23:59 Intake Total 2224.33 / 2224.33 Output Total 1100 / 1100 Balance 1124.33 / 1124.33 Microbiology Past 72 Hours 09/02/20 08:15 Interface Orders SARS-CoV-2 Antigen (Rapid) - Final Laboratory Results 09/03/20 06:05: POC Glucose 124 H 09/03/20 11:23: POC Glucose 136 H Current Medications Dextrose (Dextrose 50%-Water 25 Gm/50 Ml Disp.Syrin) 0 gm IV X1 PRN; Protocol PRN Reason: Hypoglycemia Enteral Nutritional Formula (Ensure Surgery 237 Ml Liquid) 237 ml PO TIDCM [facility] Last Admin: 09/03/20 16:59 Dose: Not Given Documented by: Famotidine (Famotidine 20 Mg Tablet) 20 mg PO BID [facility] Glucagon (Glucagon 1 Mg/Ml Syringe) 1 mg IM .X1 PRN PRN Reason: Hypoglycemia Lactated Ringer's () 1,000 mls @ 100 mls/hr IV .Q10H [facility] Last Infusion: 09/03/20 16:54 Dose: 0 mls/hr Documented by: Cefazolin Sodium () 1 gm in 50 mls @ 100 mls/hr IV Q8H [facility] Stop: 09/04/20 00:59 Last Admin: 09/03/20 16:50 Dose: 100 mls/hr Documented by: Sodium Chloride () 250 mls @ 15 mls/hr IV .[id number] PRN PRN Reason: Saline Flush Sodium Chloride () 250 mls @ 15 mls/hr IV .[id number] PRN PRN Reason: Additional IVPB Infusion Insulin Human Lispro (Insulin Lispro 100 Unit/Ml Insuln.Pen) [facility]; Protocol Last Admin: 09/03/20 16:59 Dose: 1 units Documented by: Morphine Sulfate (Morphine 4 Mg/Ml Syringe) 2 - 4 mg IV Q2H PRN PRN PRN Reason: Pain Score 6-10 Ondansetron HCl (Ondansetron 4 Mg/2 Ml Vial) 4 mg IV Q8H PRN PRN PRN Reason: NAUSEA Senna/Docusate Sodium (Senna/Docusate Sodium 1 Tablet) 2 tablet PO BID [facility] Sodium Chloride (0.9% Nacl Peripheral Flush Adult/Peds) 5 - 15 ml IV UD PRN PRN Reason: SALINE FLUSH Sodium Chloride (0.9% Saline Lock 10 Ml Syringe) 10 - 40 ml IV UD PRN PRN Reason: SALINE FLUSH Tramadol HCl (Tramadol 50 Mg Tablet) 50 - 100 mg PO Q6H PRN PRN PRN Reason: Pain Score 4-5 Last Admin: 09/03/20 16:50 Dose: 50 mg Documented by: Zolpidem Tartrate (Zolpidem Tartrate 5 Mg Tablet) 5 mg PO QHS PRN PRN PRN Reason: INSOMNIA STROKE Vital Signs/Narrative: Vital Signs Temp Pulse Resp BP Pulse Ox 09/03/20 14:39 98.1 F 71 16 127/60 H 94 Assessment/Plan This patient was seen in conjunction with TAE Larson. I have independently interviewed and examined the patient and reviewed pertinent historical, laboratory, and other data. Please refer to TAE Larson note for his patient's presentation, findings, and recommendations. I have reviewed and his note and concur with his documentation Consult for postop medical management 65-year-old with past medical history of hypertension, hyperlipidemia, GERD, type II DM, obesity who comes in for elective anterior cervical fusion C6-C7, insertion of cage SC 67, application of anterior spine plate C6-C7 and bone marrow aspiration from the right iliac crest. Patient was seen in the immediate postop.. His pain is fairly controlled. Denies any fever or chills. Denied any chest pain. Physical Exam: Gen: Appears comfortable, not pale, not jaundiced, not in pain, dressing over the anterior neck is clean and dry CVS:HS I +II, regular, no murmurs RESP: Diminished at lung bases GI: BS present and normal, soft, nontender, no palpable organs EXT:No edema ASSESSMENT: 1. Postop day #0 status post anterior cervical fusion C6-7, insertion of cage C6-7, application of anterior spine plate C6-7 2. Type II DM 3. Hypertension 4. Asthma 5. Hyperlipidemia Plan: Continue with pain control, postoperative wound management according to primary team Hold Metformin Continue with insulin sliding scale Breathing treatments as needed PT/OT to evaluate and treat Inpatient E&M: [id number] Init Hosp L2
[2020-09-03] MEDS: Cefazolin 1 GM/50 ML BAG IV ×2 (16:50→23:30)
[2020-09-03] MEDS: traMADol 50 MG Tablet PO (16:50)
[2020-09-03] MEDS: Insulin Lispro 100 UNIT/ML INSULN.PEN SC (16:59)
[2020-09-03 17:16] LABS: Bedside Glucose 173 mg/dL (70-110)
--- NOTE | 2020-09-03 19:26 | NURSING ---
reviewed and agreed with documentation by Andreina Fuentes, Student Nurse
[2020-09-03] MEDS: Senna/Docusate Sodium 1 Tablet 2 TABLET PO (21:11)
[2020-09-03] MEDS: Famotidine 20 MG Tablet PO (21:11)
[2020-09-03] MEDS: Zolpidem Tartrate 5 MG Tablet PO (21:12)
[2020-09-03] MEDS: Morphine 4 MG/ML Syringe IV (23:24)
[2020-09-04 00:36] LABS: Bedside Glucose 148 mg/dL (70-110)
--- NOTE | 2020-09-04 00:47 | PCS.PANDOC ---
PANDEMIC DOCUMENTATION INITIATED: Date: 09/03/20 Time: 1914
[2020-09-04 02:25] VITALS: BP 125/68; PULSE 64; RESP 18; TEMP 36.9; O2SAT 93
[2020-09-04 06:03] VITALS: BP 137/78; PULSE 62; RESP 18; TEMP 36.6; O2SAT 95
[2020-09-04] MEDS: Insulin Lispro 100 UNIT/ML INSULN.PEN SC (06:39)
[2020-09-04 06:56] LABS: Bedside Glucose 150 mg/dL (70-110)
[2020-09-04 08:20] VITALS: BP 139/82; PULSE 64; RESP 18; TEMP 37.2; O2SAT 94
[2020-09-04] MEDS: Senna/Docusate Sodium 1 Tablet 2 TABLET PO (10:17)
[2020-09-04] MEDS: Famotidine 20 MG Tablet PO (10:17)
--- NOTE | 2020-09-04 10:20 | CASEMGMT ---
Addendum entered by María Elena Feng 09/04/20 15:48: 1020: Reviewed [facility] form with pt and explained Observation status for treatment of herniated disc/laminectomy. Explained hospitalization will be paid per insurance policy for Outpatient billing and condition will continue to be evaluated for Inpt necessity. Also let pt know that [facility] sends paper in the billing packet with their phone number if questions arise. Pt verbalizes understanding and does not have further questions. Form signed, copy made and placed in chart, and original given to pt. Original Note: RN CM COMPOSITE ASSEMBLER CM to room to meet with patient for initial transition planning/care coordination assessment. RN CM introduced self and role at [facility]. Pt voices understanding and consents to assessment at this time. Pt resting in bed in no distress at this time. Pt is A/O at this time and answers all questions appropriately. Care providers, pharmacy, and demographics verified/updated at this time. PCP: Dr Gutierrez Specialists: Dr Godoy-surgeon, Dr Diamond--pain mgmt, Dr Cast--cardiology Preferred Pharmacy: [email or web address] Insurance: [employer] Prescription Benefit: Yes Living Will/HPOA: Pt does not currently have LW/HCPOA and declines info at this time. Pt made aware that he can contact as an out-pt and make appt in the future if he decides he would like to talk with someone about this or would like to utilize [facility] social work for advanced directive completion. Given [employer] card with information and contact number. Pt expresses understanding. LNOK: [place] Living Arrangements: Lives w/his in 2-story home. [employer]. 2 steps to enter. Independent w/ADL's and IADL's. Transportation: Pt states drives self and states no transportation concerns at this time. will take him home @ d/c DME: States has the following DME: shower chair, cane, hand held shower, walker Pt states no need for further DME at this time. HHC/SNF: No history of either. No needs identified. Pt wishes to return home and states has no concerns with going home at time of discharge. CM to follow for any discharge planning/needs. Pt voices no concerns/needs at this time. Advised pt to ask for CM if any questions/concerns/needs arise. Voices understanding. PLAN: Home Scotty RUSHING RN, CM
[2020-09-04 12:00] LABS: Bedside Glucose 129 mg/dL (70-110)
[2020-09-04] MEDS: Gabapentin 100 MG Capsule 200 MG PO (12:31)
--- NOTE | 2020-09-04 12:38 | PCM.PN.HOSP ---
<Deny Amin - Last Filed: 09/04/20 12:38> Reason for Visit: post op cervical fusion Subjective: Pain controlled, no radiating pain, numbness or tingling upper or lower ext. No fever/chills. No cough/SOB. No N/V/D. Pt complains that his dressing is itchy and that he is allergic to adhesive tape. Vitals/I&O's: Vital Signs Temp Pulse Resp BP Pulse Ox 99.0 F 64 18 139/82 H 94 09/04/20 08:20 09/04/20 08:20 09/04/20 08:20 09/04/20 08:20 09/04/20 08:20 Oxygen Flow Rate (L/min) 6 Oxygen Delivery Method Room Air Weight: 219 lb 5.759 oz Body Mass Index (BMI) 31.4 Finger Stick Blood Glucose 136 Intake and Output for Last 24 Hours 09/02/20 09/03/20 09/04/20 23:59 23:59 23:59 Intake Total 3599.33 / 3599.33 1416.67 / 1416.67 Output Total 3400 / 3400 800 / 800 Balance 199.33 / 199.33 616.67 / 616.67 General: Alert, Oriented x3, Cooperative HEENT: Atraumatic, PERRLA, EOMI, Normocephalic Neck: Supple, No JVD, Negative Carotid Bruits Lungs: Clear to auscultation, Normal air movement Cardiovascular: Regular rate, No murmurs Abdomen: Bowel Sounds Present, Soft, Non Tender Extremities: No edema, Capillary Refill Less than 3 Seconds Skin: No rashes, No breakdown Musculoskeletal: No Tenderness to Palpation of Joints or Extremities Neurological: Cranial nerves II-XII grossly intact Psych/Mental Status: Normal Affect, Appropriate Microbiology Past 72 Hours 09/02/20 08:15 Interface Orders SARS-CoV-2 Antigen (Rapid) - Final Laboratory Results 09/03/20 16:49: POC Glucose 173 H 09/03/20 21:02: POC Glucose 148 H 09/04/20 06:36: POC Glucose 150 H 09/04/20 11:53: POC Glucose 129 H Current Medications Albuterol Sulfate (Albuterol 2.5 Mg/3 Ml Vial.Neb.) 2.5 mg INHALATION Q4H PRN PRN PRN Reason: WHEEZING Atorvastatin Calcium (Atorvastatin Calcium 80 Mg Tablet) 80 mg PO QHS [facility] Dextrose (Dextrose 50%-Water 25 Gm/50 Ml Disp.Syrin) 0 gm IV X1 PRN; Protocol PRN Reason: Hypoglycemia Enteral Nutritional Formula (Ensure Surgery 237 Ml Liquid) 237 ml PO TIDCM [facility] Last Admin: 09/04/20 12:02 Dose: Not Given Documented by: Famotidine (Famotidine 20 Mg Tablet) 20 mg PO BID [facility] Last Admin: 09/04/20 10:17 Dose: 20 mg Documented by: Gabapentin (Gabapentin 100 Mg Capsule) 200 mg PO TIDCM [facility] Last Admin: 09/04/20 12:31 Dose: 200 mg Documented by: Glucagon (Glucagon 1 Mg/Ml Syringe) 1 mg IM .X1 PRN PRN Reason: Hypoglycemia Sodium Chloride () 250 mls @ 15 mls/hr IV .[id number] PRN PRN Reason: Saline Flush Sodium Chloride () 250 mls @ 15 mls/hr IV .[id number] PRN PRN Reason: Additional IVPB Infusion Insulin Human Lispro (Insulin Lispro 100 Unit/Ml Insuln.Pen) [facility]; Protocol Last Admin: 09/04/20 12:01 Dose: Not Given Documented by: Metformin HCl ([facility] Hcl 500 Mg Tablet) [facility] Morphine Sulfate (Morphine 4 Mg/Ml Syringe) 2 - 4 mg IV Q2H PRN PRN PRN Reason: Pain Score 6-10 Last Admin: 09/03/20 23:24 Dose: 2 mg Documented by: Ondansetron HCl (Ondansetron 4 Mg/2 Ml Vial) 4 mg IV Q8H PRN PRN PRN Reason: NAUSEA Senna/Docusate Sodium (Senna/Docusate Sodium 1 Tablet) 2 tablet PO BID [facility] Last Admin: 09/04/20 10:17 Dose: 2 tablet Documented by: Sodium Chloride (0.9% Nacl Peripheral Flush Adult/Peds) 5 - 15 ml IV UD PRN PRN Reason: SALINE FLUSH Sodium Chloride (0.9% Saline Lock 10 Ml Syringe) 10 - 40 ml IV UD PRN PRN Reason: SALINE FLUSH Tramadol HCl (Tramadol 50 Mg Tablet) 50 - 100 mg PO Q6H PRN PRN PRN Reason: Pain Score 4-5 Last Admin: 09/03/20 16:50 Dose: 50 mg Documented by: Trazodone HCl (Trazodone 50 Mg Tablet) 50 mg PO QHS [facility] Zolpidem Tartrate (Zolpidem Tartrate 5 Mg Tablet) 5 mg PO QHS PRN PRN PRN Reason: INSOMNIA Last Admin: 09/03/20 21:12 Dose: 5 mg Documented by: Medical Necessity - Tobacco Use Smoking Status: Current every day smoker Tobacco Use: Chew Assessment/Plan All Active Problems (Last Updated 07/30/19 @ 12:16 by Agnieszka Robb) Contact with or suspected exposure to other viral communicable disease (Acute) Acute sinusitis (Acute) Pre-operative cardiovascular examination (Acute) H/O coronary artery bypass surgery (Resolved 09/14/11) Fatigue (Acute) Palpitation (Acute) Essential (primary) hypertension (Ruled-out) 1. Herniated disc C6 C7 post op day #1 s/p final fusion , cage, plate, BMA right iliac crest - care as per Dr. Godoy. Doing well no issues at this time. 2. Dmt2 with obesity - hold metformin, continue sliding scale insulin, accuchecks. A1C 6.2. 3. HTN -stable 4. Asthma - albuterol prn. lungs clear at this time with no SOB. 5. HLD - resume statin at discharge DVT ppx: SCDs Thank you for the opportunity to participate in the care of this patient. This patient was seen by Deny Amin PA-C under the supervision of Dr. Clinton <Dimas Clinton F - Last Filed: 09/04/20 14:17> Vitals/I&O's: Vital Signs Temp Pulse Resp BP Pulse Ox 97.8 F 67 18 146/89 H 95 09/04/20 13:00 09/04/20 13:00 09/04/20 13:00 09/04/20 13:00 09/04/20 13:00 Oxygen Flow Rate (L/min) 6 Oxygen Delivery Method Room Air Weight: 219 lb 5.759 oz Body Mass Index (BMI) 31.4 Finger Stick Blood Glucose 136 Intake and Output for Last 24 Hours 09/02/20 09/03/20 09/04/20 23:59 23:59 23:59 Intake Total 3599.33 / 3599.33 / Output Total 3400 / 3400 800 / 800 Balance 199.33 / 199.33 1216.67 / 1216.67 Microbiology Past 72 Hours 09/02/20 08:15 Interface Orders SARS-CoV-2 Antigen (Rapid) - Final Laboratory Results 09/03/20 16:49: POC Glucose 173 H 09/03/20 21:02: POC Glucose 148 H 09/04/20 06:36: POC Glucose 150 H 09/04/20 11:53: POC Glucose 129 H Current Medications Albuterol Sulfate (Albuterol 2.5 Mg/3 Ml Vial.Neb.) 2.5 mg INHALATION Q4H PRN PRN PRN Reason: WHEEZING Atorvastatin Calcium (Atorvastatin Calcium 80 Mg Tablet) 80 mg PO QHS [facility] Dextrose (Dextrose 50%-Water 25 Gm/50 Ml Disp.Syrin) 0 gm IV X1 PRN; Protocol PRN Reason: Hypoglycemia Enteral Nutritional Formula (Ensure Surgery 237 Ml Liquid) 237 ml PO TIDCM [facility] Last Admin: 09/04/20 12:02 Dose: Not Given Documented by: Famotidine (Famotidine 20 Mg Tablet) 20 mg PO BID [facility] Last Admin: 09/04/20 10:17 Dose: 20 mg Documented by: Gabapentin (Gabapentin 100 Mg Capsule) 200 mg PO TIDCM [facility] Last Admin: 09/04/20 12:31 Dose: 200 mg Documented by: Glucagon (Glucagon 1 Mg/Ml Syringe) 1 mg IM .X1 PRN PRN Reason: Hypoglycemia Sodium Chloride () 250 mls @ 15 mls/hr IV .[id number] PRN PRN Reason: Saline Flush Sodium Chloride () 250 mls @ 15 mls/hr IV .[id number] PRN PRN Reason: Additional IVPB Infusion Insulin Human Lispro (Insulin Lispro 100 Unit/Ml Insuln.Pen) 0 unit SC ACHS [facility]; Protocol Last Admin: 09/04/20 12:01 Dose: Not Given Documented by: Metformin HCl (Metformin Hcl 500 Mg Tablet) 500 mg PO BIDCM [facility] Morphine Sulfate (Morphine 4 Mg/Ml Syringe) 2 - 4 mg IV Q2H PRN PRN PRN Reason: Pain Score 6-10 Last Admin: 09/03/20 23:24 Dose: 2 mg Documented by: Ondansetron HCl (Ondansetron 4 Mg/2 Ml Vial) 4 mg IV Q8H PRN PRN PRN Reason: NAUSEA Senna/Docusate Sodium (Senna/Docusate Sodium 1 Tablet) 2 tablet PO BID [facility] Last Admin: 09/04/20 10:17 Dose: 2 tablet Documented by: Sodium Chloride (0.9% Nacl Peripheral Flush Adult/Peds) 5 - 15 ml IV UD PRN PRN Reason: SALINE FLUSH Sodium Chloride (0.9% Saline Lock 10 Ml Syringe) 10 - 40 ml IV UD PRN PRN Reason: SALINE FLUSH Tramadol HCl (Tramadol 50 Mg Tablet) 50 - 100 mg PO Q6H PRN PRN PRN Reason: Pain Score 4-5 Last Admin: 09/03/20 16:50 Dose: 50 mg Documented by: Trazodone HCl (Trazodone 50 Mg Tablet) 50 mg PO QHS [facility] Zolpidem Tartrate (Zolpidem Tartrate 5 Mg Tablet) 5 mg PO QHS PRN PRN PRN Reason: INSOMNIA Last Admin: 09/03/20 21:12 Dose: 5 mg Documented by: STROKE Vital Signs/Narrative: Vital Signs Temp Pulse Resp BP Pulse Ox 09/04/20 13:00 97.8 F 67 18 146/89 H 95 Addendum: Dr. Clinton I personally examined the patient and reviewed the chart. I agree with the above. 65-year-old male presenting with a herniated disc and foraminal stenosis on C6-7 on the left. He is status post anterior cervical fusion on 09/03/2020. He is doing well from surgery and would like to go home. Vital signs and physical exam are stable, he has no numbness or tingling in his extremities and denies any significant neck pain other than postsurgical pain. From medical standpoint he is okay to go home today. We will continue to follow peripherally if remains in the hospital. OBSV E&M: 09671 Subsequent observation care L2
[2020-09-04 13:00] VITALS: BP 146/89; PULSE 67; RESP 18; TEMP 36.6; O2SAT 95
--- NOTE | 2020-09-04 14:36 | NURSING ---
pt ambulatory in hallway w/
--- NOTE | 2020-09-04 16:35 | DS.PCM_ITS ---
Discharge Date and Diagnosis Date of Admission: [birth year]21 Date of Discharge: 09/04/20 - Secondary Discharge Diagnosis Chronic Problems: Chronic Problems (Last Updated 07/30/19 @ 12:16 by Agnieszka Robb) Atherosclerotic heart disease of [place] coronary artery without angina pectoris (Chronic) CABG x 3 MORGAN-LAD, SVG-LCx, SVG-Ramus 09/14/11 Hyperlipemia (Chronic) Nonrheumatic aortic (valve) stenosis with insufficiency (Chronic) Dyspnea on exertion (Chronic) Hospital Course and Treatment Summary of Care Provided: The patient is a 65 year old M [] - Physical Exam Vitals/I&O's: Vital Signs Temp Pulse Resp BP Pulse Ox 97.8 F 67 18 146/89 H 95 09/04/20 13:00 09/04/20 13:00 09/04/20 13:00 09/04/20 13:00 09/04/20 13:00 Oxygen Flow Rate (L/min) 6 Oxygen Delivery Method Room Air Weight: 219 lb 5.759 oz Body Mass Index (BMI) 31.4 Finger Stick Blood Glucose 136 Intake and Output for Last 24 Hours 09/02/20 09/03/20 09/04/20 23:59 23:59 23:59 Intake Total 3599.33 / 3599.33 / Output Total 3400 / 3400 800 / 800 Balance 199.33 / 199.33 1216.67 / 1216.67 Microbiology Past 72 Hours 09/02/20 08:15 Interface Orders SARS-CoV-2 Antigen (Rapid) - Final Laboratory Results 09/03/20 16:49: POC Glucose 173 H 09/03/20 21:02: POC Glucose 148 H 09/04/20 06:36: POC Glucose 150 H 09/04/20 11:53: POC Glucose 129 H Current Medications Albuterol Sulfate (Albuterol 2.5 Mg/3 Ml Vial.Neb.) 2.5 mg INHALATION Q4H PRN PRN PRN Reason: WHEEZING Atorvastatin Calcium (Atorvastatin Calcium 80 Mg Tablet) 80 mg PO QHS AMADO Dextrose (Dextrose 50%-Water 25 Gm/50 Ml Disp.Syrin) 0 gm IV X1 PRN; Protocol PRN Reason: Hypoglycemia Enteral Nutritional Formula (Ensure Surgery 237 Ml Liquid) 237 ml PO TIDCM AMADO Last Admin: 09/04/20 12:02 Dose: Not Given Documented by: Famotidine (Famotidine 20 Mg Tablet) 20 mg PO BID [facility], [facility] Last Admin: 09/04/20 10:17 Dose: 20 mg Documented by: Gabapentin (Gabapentin 100 Mg Capsule) 200 mg PO TIDCM [facility], [facility]1983 Last Admin: 09/04/20 12:31 Dose: 200 mg Documented by: Glucagon (Glucagon 1 Mg/Ml Syringe) 1 mg IM .X1 PRN PRN Reason: Hypoglycemia Sodium Chloride () 250 mls @ 15 mls/hr IV .[id number] PRN PRN Reason: Saline Flush Sodium Chloride () 250 mls @ 15 mls/hr IV .[id number] PRN PRN Reason: Additional IVPB Infusion Insulin Human Lispro (Insulin Lispro 100 Unit/Ml Insuln.Pen) 0 unit SC [facility]; Protocol Last Admin: 09/04/20 12:01 Dose: Not Given Documented by: Metformin HCl (Metformin Hcl 500 Mg Tablet) [facility] Morphine Sulfate (Morphine 4 Mg/Ml Syringe) 2 - 4 mg IV Q2H PRN PRN PRN Reason: Pain Score 6-10 Last Admin: 09/03/20 23:24 Dose: 2 mg Documented by: Ondansetron HCl (Ondansetron 4 Mg/2 Ml Vial) 4 mg IV Q8H PRN PRN PRN Reason: NAUSEA Senna/Docusate Sodium (Senna/Docusate Sodium 1 Tablet) 2 tablet PO BID [facility] Last Admin: 09/04/20 10:17 Dose: 2 tablet Documented by: Sodium Chloride (0.9% Nacl Peripheral Flush Adult/Peds) 5 - 15 ml IV UD PRN PRN Reason: SALINE FLUSH Sodium Chloride (0.9% Saline Lock 10 Ml Syringe) 10 - 40 ml IV UD PRN PRN Reason: SALINE FLUSH Tramadol HCl (Tramadol 50 Mg Tablet) 50 - 100 mg PO Q6H PRN PRN PRN Reason: Pain Score 4-5 Last Admin: 09/03/20 16:50 Dose: 50 mg Documented by: Trazodone HCl (Trazodone 50 Mg Tablet) 50 mg PO QHS [facility] Zolpidem Tartrate (Zolpidem Tartrate 5 Mg Tablet) 5 mg PO QHS PRN PRN PRN Reason: INSOMNIA Last Admin: 09/03/20 21:12 Dose: 5 mg Documented by: Home Medications: Medications to take at Discharge Aspirin [Adult Low Dose Aspirin EC] 81 mg PO DAILY 12/23/15 Atorvastatin Calcium [Lipitor] 80 mg PO QHS 12/23/15 Hydrocodone/Acetaminophen [Hydrocodone-Acetamin 5-325 mg] 1 ea PO BID PRN PRN 12/23/15 traZODone [Desyrel] 50 - 100 mg PO QHS 12/23/15 Albuterol Inhaler [Ventolin Hfa] 1 - 2 puff INHALATION Q4H PRN PRN 08/31/18 Metformin HCl 500 mg PO BID 08/31/18 multivitamin 1 tab PO DAILY 07/09/19 Baclofen [Lioresal] 10 mg PO PRN PRN 05/14/20 Gabapentin [Neurontin] 200 mg PO TID 05/14/20 Linacolotide [Linzess] 145 mcg PO PRN PRN 05/14/20 Ascorbic Acid [Vitamin C] 1,000 mg PO DAILY 08/10/20 Cholecalciferol (Vitamin D3) [Vitamin D3] 10 mcg PO DAILY 08/10/20 Primary Care Physician: Weston Gutierrez Chi, MD [Primary Care Provider] - Medical Necessity - Tobacco Use Smoking Status: Current every day smoker Tobacco Use: Chew Meaningful Use Info Meaningful Use Diagnoses (Choose all that apply): None applicable
--- NOTE | 2020-09-04 16:49 | NURSING ---
dr helton changed anterior neck dressing
--- NOTE | 2020-09-04 16:57 | DCINST_ITS ---
You will use the following diet at home:: No restrictions Your food should be the consistency of: Regular Your liquids should be the consistency of: Regular/Thin Discharge Activity: Return to Normal Activity, May Not Drive, May not drive while taking narcotic pain medications., May Shower May shower in (days): 4 Remove Dressing in (days):: 4 Cleanse incision/area with: Soap & Water Allergies/Adverse Reactions: Allergies adhesive tape Allergy (Verified 09/03/20 12:42) Rash i just turned red sertraline [From Zoloft] Adverse Reaction (Verified 09/03/20 06:08) Unknown Medications to take at Discharge Aspirin [Adult Low Dose Aspirin EC] 81 mg PO DAILY 12/23/15 Atorvastatin Calcium [Lipitor] 80 mg PO QHS 12/23/15 Hydrocodone/Acetaminophen [Hydrocodone-Acetamin 5-325 mg] 1 ea PO BID PRN PRN 12/23/15 traZODone [Desyrel] 50 - 100 mg PO QHS 12/23/15 Albuterol Inhaler [Ventolin Hfa] 1 - 2 puff INHALATION Q4H PRN PRN 08/31/18 Metformin HCl 500 mg PO BID 08/31/18 multivitamin 1 tab PO DAILY 07/09/19 Baclofen [Lioresal] 10 mg PO PRN PRN 05/14/20 Gabapentin [Neurontin] 200 mg PO TID 05/14/20 Linacolotide [Linzess] 145 mcg PO PRN PRN 05/14/20 Ascorbic Acid [Vitamin C] 1,000 mg PO DAILY 08/10/20 Cholecalciferol (Vitamin D3) [Vitamin D3] 10 mcg PO DAILY 08/10/20 Primary Care Physician: Weston Gutierrez Chi, MD [Primary Care Provider] - Test Results: Test results from this visit will be discussed in further detail at your follow- up appointment, if applicable. Please Follow Up With: Ventura Godoy DO - scheduled
== END 2020-09-04 17:07 | disposition home or self-care (01) ==
LOC: SDC 13:30 → MS3 13:30
PROVIDERS: Anesthesiology; Admitting Provider Orthopaedic Surgery; PCP Family Medicine Geriatric Medicine; Referring Provider Orthopaedic Surgery; Visit Provider Family Medicine
PROC: (CPT 22551; principal; 2020-09-03 07:00)
DX: M50.223 Other cervical disc displacement at C6-C7 level (principal); Z20.828 Contact with and (suspected) exposure to other viral communicable diseases; I10 Essential (primary) hypertension; I25.10 Atherosclerotic heart disease of native coronary artery without angina pectoris; J45.909 Unspecified asthma, uncomplicated; M48.02 Spinal stenosis, cervical region; E11.9 Type 2 diabetes mellitus without complications; E78.5 Hyperlipidemia, unspecified; E66.9 Obesity, unspecified; K21.9 Gastro-esophageal reflux disease without esophagitis; Z68.31 Body mass index [BMI] 31.0-31.9, adult; F17.220 Nicotine dependence, chewing tobacco, uncomplicated; Z79.82 Long term (current) use of aspirin; Z79.899 Other long term (current) drug therapy; Z79.84 Long term (current) use of oral hypoglycemic drugs
CPT/HCPCS: 00670; 20939; 22551; 22845; 22853; 36415; 72020; 80048; 82947; 82962; 83036; 83735; 85025; 86703; 86704; 86705; 86706; 86708; 86709; 86803; 87081; 87340; 87426; 88304; 88311; 96361; 96365; 96366; 96375; 99218; 99251; 99406; C9803; J7120; G0378; G0379; G0463; J2405

== ENCOUNTER 2020-10-22 10:55 | Outpatient (RCR) | payer MEDICARE, SELFPAY ==
[2020-09-16 08:40] VITALS: BMI 31.1
[2020-10-22] MEDS: COVID-19 VACC, MRNA(PFIZER)/PF 30 MCG/0.3 ML SYRINGE IM (08:05)
[2020-11-12] MEDS: COVID-19 VACC, MRNA(PFIZER)/PF 30 MCG/0.3 ML SYRINGE IM (07:44)
== END 2021-01-19 23:59 ==
LOC: IMMUN 10:55
PROVIDERS: PCP Family Medicine Geriatric Medicine; Referring Provider Family Medicine; Visit Provider Family Medicine
DX: Z23 Encounter for immunization (principal)
CPT/HCPCS: 0001A; 0002A; 91300

== ENCOUNTER → 2020-11-04 11:53 | Outpatient (CLI) | payer MEDICARE, SELFPAY ==
[2020-09-16 08:40] VITALS: BMI 31.1
[2020-11-04 12:23] LABS: Absolute Lymphocyte Count 1.52 X10^3/uL (0.83-4.51); Absolute Neutrophil Count 2.7 X10^3/uL (2.0-7.7); Basophil# 0.02 X10^3/uL; Basophil% 0.4 % (0-1); Eosinophil# 0.11 X10^3/uL; Eosinophils% 2.2 % (0-5); Hematocrit 46.1 % (40-54); Hemoglobin 15.2 g/dL (13.0-16.5); Lymphocyte # 1.52 X10^3/ul (4.0); Mean Corpuscular Hgb 29.9 pg (27.0-32.0); Mean Corpuscular Volume 90.6 fL (80-94); Mean Platelet Vol. 8.8 fl (6.2-12.0); Monocyte# 0.56 X10^3/uL; Monocyte% 11.4 % (0-10); NRBC Flagged by Analyzer 0 % (0-5); Neutrophil # 2.67 X10^3/uL (2.7-7.7); Neutrophil % 54.6 % (47-70); Platelet Count 279 K/mm3 (150-450); RBC Distribution Width CV 13.1 % (11.6-14.6); RBC Distribution Width SD 43.3 fl (35.1-43.9); Red Blood Count 5.09 M/mm3 (4.6-6.2); White Blood Count 4.9 K/mm3 (4.4-11.0)
[2020-11-04 12:35] LABS: Vitamin D,25 Hydroxy 40.6 ng/mL
[2020-11-04 12:46] LABS: ALB/GLOB Ratio 1.1 RATIO (0.9-2.4); AST(SGOT) 44 U/L (15-37); Alanine Aminotransfer ALT/SGPT 61 U/L (16-61); Albumin, Serum 3.9 g/dL (3.2-5.0); Alkaline Phosphatase 92 U/L (45-117); Anion Gap 6 (5-15); BUN 22 mg/dL (7-18); BUN/Creat Ratio 23.2 RATIO (10-20); Calcium,Total 9.1 mg/dL (8.5-10.1); Chloride 106 mmol/L (98-107); Creatinine, Serum 0.95 mg/dL (0.70-1.30); EST Glomerular Filtration Rate 84 mL/min (>60); Est Glom Filt Rate - Afr Amer 102 mL/min (>60); Globulin 3.5 g/dL (2.2-4.2); Glucose 104 mg/dL (74-106); Potassium 3.7 mmol/L (3.5-5.1); Protein, Total 7.4 g/dL (6.4-8.2); Sodium Level 139 mmol/L (136-145); Thyroid Stim Hormone (TSH) 1.17 uIU/mL (0.358-3.74)
== END ==
PROVIDERS: PCP Family Medicine Geriatric Medicine; Visit Provider Family Medicine Geriatric Medicine
DX: E11.65 Type 2 diabetes mellitus with hyperglycemia (principal); E55.9 Vitamin D deficiency, unspecified; R53.83 Other fatigue
CPT/HCPCS: 36415; 80053; 82306; 84443; 85025

== ENCOUNTER → 2021-03-08 10:57 | Outpatient (CLI) | payer MEDICARE, SELFPAY ==
[2021-02-22 08:54] VITALS: BMI 31.1
--- NOTE | 2021-03-08 10:59 | RAD_ITS ---
STUDY: X-RAY - RIGHT HAND REASON FOR EXAM: Male, 65 years old. HAND PAIN TECHNIQUE: 3 view(s) of the hand. COMPARISON: None. FINDINGS: Normal radiocarpal articulation. Normal distal radioulnar joint. There is a fracture of the waist of the scaphoid bone which may be chronic. Clinical correlation is recommended. Normal carpal articulations Normal carpometacarpal articulation of the thumb. Normal second through fifth carpometacarpal joints. Normal metacarpi. Normal metacarpophalangeal joint of the thumb. Normal interphalangeal joint of the thumb. Normal proximal and distal phalanges of the thumb. Normal metacarpophalangeal joints of the second through fifth fingers. Normal proximal and distal interphalangeal joints of the second through fifth fingers. Normal phalanges of the second through fifth fingers. The soft tissue structures are unremarkable. RAD/Hand Min 3 Views IMPRESSION: Fracture of the waist of the scaphoid bone which may be chronic. Clinical correlation is recommended. Electronically Signed: Leroy Jerry MD at 17:13 EDT Tel , Service support ,
--- NOTE | 2021-03-08 11:00 | RAD_ITS ---
STUDY: X-RAY - LEFT HAND REASON FOR EXAM: Male, 65 years old. HAND PAIN TECHNIQUE: 3 view(s) of the hand. COMPARISON: None. FINDINGS: Normal radiocarpal articulation. Normal distal radioulnar joint. Normal visualized carpal bones. Normal carpal articulations There is degenerative arthrosis of the carpometacarpal (CMC) articulation of the thumb. Normal second through fifth carpometacarpal joints. Normal metacarpi. Normal metacarpophalangeal joint of the thumb. Normal interphalangeal joint of the thumb. Normal proximal and distal phalanges of the thumb. Normal metacarpophalangeal joints of the second through fifth fingers. Normal proximal and distal interphalangeal joints of the second through fifth fingers. Normal phalanges of the second through fifth fingers. The soft tissue structures are unremarkable. RAD/Hand Min 3 Views IMPRESSION: Mild first carpometacarpal joint arthrosis. Electronically Signed: Leroy Jerry MD at 17:14 EDT Tel , Service support ,
== END ==
PROVIDERS: PCP Family Medicine Geriatric Medicine; Referring Provider Family Medicine Geriatric Medicine; Visit Provider Family Medicine Geriatric Medicine
DX: M79.642 Pain in left hand (principal); M79.641 Pain in right hand
CPT/HCPCS: 73130

== ENCOUNTER → 2021-05-10 09:17 | Outpatient (CLI) | payer MEDICARE, SELFPAY ==
[2021-05-10 11:45] LABS: Absolute Neutrophil Count 4.6 X10^3/uL (2.0-7.7); Basophil# 0.04 X10^3/uL; Basophil% 0.6 % (0-1); Eosinophils% 2.8 % (0-5); Hematocrit 41.7 % (40-54); Hemoglobin 13.7 g/dL (13.0-16.5); Lymphocyte % 23.6 % (19-41); Mean Corp Hgb Conc 32.9 g/dL (32-36); Mean Corpuscular Hgb 29.3 pg (27.0-32.0); Mean Corpuscular Volume 89.3 fL (80-94); Mean Platelet Vol. 8.9 fl (6.2-12.0); Monocyte# 0.68 X10^3/uL; Monocyte% 9.4 % (0-10); NRBC Flagged by Analyzer 0 % (0-5); Neutrophil # 4.57 X10^3/uL (2.7-7.7); Neutrophil % 63.3 % (47-70); Platelet Count 278 K/mm3 (150-450); RBC Distribution Width SD 42.4 fl (35.1-43.9); Red Blood Count 4.67 M/mm3 (4.6-6.2); White Blood Count 7.2 K/mm3 (4.4-11.0)
[2021-05-10 12:04] LABS: Vitamin D,25 Hydroxy 54.2 ng/mL
[2021-05-10 12:24] LABS: ALB/GLOB Ratio 1.1 RATIO (0.9-2.4); AST(SGOT) 24 U/L (15-37); Alanine Aminotransfer ALT/SGPT 36 U/L (16-61); Albumin, Serum 3.8 g/dL (3.2-5.0); Alkaline Phosphatase 106 U/L (45-117); Anion Gap 9 (5-15); BUN 20 mg/dL (7-18); BUN/Creat Ratio 22.6 RATIO (10-20); Calcium,Total 9.3 mg/dL (8.5-10.1); Chloride 104 mmol/L (98-107); Creatinine, Serum 0.88 mg/dL (0.70-1.30); EST Glomerular Filtration Rate 91 mL/min (>60); Est Glom Filt Rate - Afr Amer 110 mL/min (>60); Globulin 3.5 g/dL (2.2-4.2); Glucose 110 mg/dL (74-106); Potassium 4.2 mmol/L (3.5-5.1); Protein, Total 7.3 g/dL (6.4-8.2); Sodium Level 140 mmol/L (136-145); Thyroid Stim Hormone (TSH) 1.87 uIU/mL (0.358-3.74)
== END ==
PROVIDERS: PCP Family Medicine Geriatric Medicine; Visit Provider Family Medicine Geriatric Medicine
DX: E55.9 Vitamin D deficiency, unspecified (principal); R53.83 Other fatigue; Z12.5 Encounter for screening for malignant neoplasm of prostate
CPT/HCPCS: 36415; 80053; 82306; 84153; 84443; 85025; G0103

== ENCOUNTER → 2021-07-29 09:22 | Outpatient (CLI) | payer MEDICARE, SELFPAY | PROVIDERS: PCP Family Medicine Geriatric Medicine; Referring Provider Family Medicine Geriatric Medicine; Visit Provider Family Medicine Geriatric Medicine | DX: R68.83 Chills (without fever) (principal) | CPT/HCPCS: 87635; 87804; 87807; C9803; U0005; U0003 ==

== ENCOUNTER → 2021-08-10 13:44 | Outpatient (CLI) | payer MEDICARE, SELFPAY ==
--- NOTE | 2021-08-10 14:05 | RAD_ITS ---
STUDY: X-RAY CHEST REASON FOR EXAM: Male, 66 years old. Fever and cough TECHNIQUE: PA and lateral views of the chest. COMPARISON: None. FINDINGS: The lungs are clear and expanded. There is no demonstrated pleural abnormality. Sternal cerclage wires and vascular clips are present from a prior sternotomy and coronary artery bypass graft procedure (CABG). Normal mediastinum and audra. Normal visualized pulmonary arteries. Normal visualized aortic arch and descending thoracic aorta. Normal visualized thoracic spine. Normal visualized ribs, clavicles, and shoulders. There is no demonstrated abnormality of the visualized soft tissue structures of the upper abdomen. RAD/Chest PA and Lateral IMPRESSION: No acute pulmonary process Electronically Signed: Mervin Diaz MD at 17:12 EST , Service support ,
== END ==
PROVIDERS: PCP Family Medicine Geriatric Medicine; Referring Provider Family Medicine Geriatric Medicine; Visit Provider Family Medicine Geriatric Medicine
DX: R68.83 Chills (without fever) (principal); R05.9 Cough, unspecified
CPT/HCPCS: 71046; 87635; 87804; 87807; C9803; U0005; U0003

== ENCOUNTER 2021-10-04 10:24 | Outpatient (CLI) | payer MEDICARE, SELFPAY ==
[2021-10-04 12:15] LABS: Absolute Lymphocyte Count 2.41 X10^3/uL (0.83-4.51); Absolute Neutrophil Count 3.8 X10^3/uL (2.0-7.7); Basophil# 0.05 X10^3/uL; Basophil% 0.7 % (0-1); Eosinophil# 0.19 X10^3/uL; Eosinophils% 2.7 % (0-5); Hematocrit 43.5 % (40-54); Hemoglobin 14.2 g/dL (13.0-16.5); Lymphocyte # 2.41 X10^3/ul (0.83-4.51); Mean Corp Hgb Conc 32.6 g/dL (32-36); Mean Corpuscular Hgb 29.5 pg (27.0-32.0); Mean Corpuscular Volume 90.4 fL (80-94); Mean Platelet Vol. 8.9 fl (6.2-12.0); Monocyte# 0.62 X10^3/uL; Monocyte% 8.7 % (0-10); NRBC Flagged by Analyzer 0 % (0-5); Neutrophil # 3.81 X10^3/uL (2.7-7.7); Neutrophil % 53.8 % (47-70); Platelet Count 284 K/mm3 (150-450); RBC Distribution Width CV 13.2 % (11.6-14.6); Red Blood Count 4.81 M/mm3 (4.6-6.2); White Blood Count 7.1 K/mm3 (4.4-11.0)
[2021-10-04 12:42] LABS: ALB/GLOB Ratio 1.3 RATIO (0.9-2.4); AST(SGOT) 20 U/L (15-37); Alanine Aminotransfer ALT/SGPT 33 U/L (16-61); Albumin, Serum 4.3 g/dL (3.2-5.0); Alkaline Phosphatase 106 U/L (45-117); Anion Gap 6 (5-15); BUN 22 mg/dL (7-18); BUN/Creat Ratio 23.5 RATIO (10-20); Calcium,Total 9.3 mg/dL (8.5-10.1); Chloride 104 mmol/L (98-107); Creatinine, Serum 0.94 mg/dL (0.70-1.30); EST Glomerular Filtration Rate 85 mL/min (>60); Est Glom Filt Rate - Afr Amer 103 mL/min (>60); Globulin 3.2 g/dL (2.2-4.2); Glucose 91 mg/dL (74-106); PSA,Total- Diagnostic 1.13 ng/mL (0.0-4.0); Protein, Total 7.5 g/dL (6.4-8.2); Sodium Level 137 mmol/L (136-145)
== END 2021-10-04 23:59 | disposition home or self-care (01) ==
LOC: BIMLAB 10:24
PROVIDERS: Visit Provider Internal Medicine
DX: I25.10 Atherosclerotic heart disease of native coronary artery without angina pectoris (principal); E78.5 Hyperlipidemia, unspecified; N13.8 Other obstructive and reflux uropathy; N40.1 Benign prostatic hyperplasia with lower urinary tract symptoms; Z95.1 Presence of aortocoronary bypass graft
CPT/HCPCS: 36415; 80053; 84153; 85025

== ENCOUNTER 2021-11-15 08:30 | Outpatient (CLI) | payer MEDICARE, SELFPAY ==
[2021-11-15 10:26] LABS: AST(SGOT) 23 U/L (15-37); Alanine Aminotransfer ALT/SGPT 34 U/L (16-61); Albumin, Serum 3.8 g/dL (3.2-5.0); Alkaline Phosphatase 92 U/L (45-117); Bilirubin, Direct 0.19 mg/dL (0.00-0.30); Cholesterol 258 mg/dL (200); High Density Lipoprotein 44 mg/dL; Protein, Total 6.8 g/dL (6.4-8.2); Triglycerides 113 mg/dL; Very Low Density Lipoprotein 23 mg/dL (5-40)
== END 2021-11-15 23:59 | disposition home or self-care (01) ==
LOC: LAB 08:31
PROVIDERS: Referring Provider Nurse Practitioner Family; Visit Provider Nurse Practitioner Family
DX: I25.10 Atherosclerotic heart disease of native coronary artery without angina pectoris (principal); E78.5 Hyperlipidemia, unspecified
CPT/HCPCS: 36415; 80061; 80076

== ENCOUNTER → 2022-02-11 | Outpatient (CLI) | payer MEDICARE, SELFPAY ==
--- NOTE | 2022-02-11 16:10 | MRI_ITS ---
STUDY: MR Knee W/O Contrast 02/11/2022 6:11 PM right REASON FOR EXAM: Male, 66 years old. mechanical pain Technologist Notes Other, pt c/o pain around entire patella, no injury TECHNIQUE: Standardized fat and water weighted pulse sequences were obtained in all 3 orthogonal planes. COMPARISON: Feb 04 2022 8:43am FINDINGS: Vertical tear of the posterior horn of the medial meniscus. Normal hyaline cartilage of the medial femorotibial compartment. Normal medial femoral condyle and tibial plateau. Normal medial collateral ligamentous complex (MCL). Normal distal semimembranosus, gracilis and semitendinosus tendons. Normal lateral meniscus. Normal hyaline cartilage of the lateral femorotibial compartment. Normal lateral femoral condyle and tibial plateau. Lateral parameniscal cyst. Normal proximal tibiofibular articulation. Normal lateral collateral (fibular) ligament. Normal popliteus tendon. Normal biceps femoris tendon. Normal anterior cruciate ligament (ACL). Normal posterior cruciate ligament (PCL). Normal congruent patellofemoral articulation. Normal hyaline cartilage of the patellofemoral compartment. Normal medial and lateral patellar retinaculum. Normal quadriceps tendon. Normal patellar tendon. Normal Hoffa''s fat pad. There is a small volume joint effusion. The soft tissues are unremarkable. The otherwise visualized osseous structures are unremarkable. MRI/Lower Ext Joint Only (Routine) IMPRESSION: Small suprapatellar effusion. Vertical tear of the posterior horn of the medial meniscus. Electronically Signed: Oli Marcial MD at 18:14 EDT ,
== END | disposition home or self-care (01) ==
LOC: MRI 16:10
PROVIDERS: Referring Provider Orthopaedic Surgery; Visit Provider Orthopaedic Surgery
DX: M25.561 Pain in right knee (principal)
CPT/HCPCS: 73721

== ENCOUNTER 2022-03-01 09:19 | Day surgery (SDC) | payer MEDICARE, SELFPAY ==
[2022-03-01 10:13] VITALS: BP 129/62; PULSE 63; RESP 16; TEMP 36.5; O2SAT 97; BMI 30.7
[2022-03-01] MEDS: Lactated Ringers 1,000 ML 15 ML IV (10:31)
[2022-03-01 10:50] LABS: Bedside Glucose 108 mg/dL (74-106)
[2022-03-01] MEDS: Epinephrine (1 mg/ml) 1 MG/ML VIAL (11:00)
[2022-03-01] MEDS: Cefazolin 2 GM in 0.9% Normal Saline 100 ML IV (11:01)
[2022-03-01] MEDS: Lidocaine 1% /Epi 1:100 (20ml) 20 ML Vial (11:25)
[2022-03-01] MEDS: MethylPREDNISolone Acetate 40 MG/ML Vial IM (11:39)
[2022-03-01] MEDS: Bupivacaine 0.25% 30 ML Vial (11:39)
--- NOTE | 2022-03-01 11:40 | PCM.HP.BLA ---
History and Physical Date of Admission: 03/01/22 [facility] [address] [place] [address] OFFICE VISIT Date of Service:? 02/16/22 MR#: [id number] Acct: [id number] Name:JARET JIM Rep #: [id number] : 1955 ? ? Provider: Dr. Talat Lund, DO Age/Sex:? 66/M ? ? Location: [facility] [place].PRABHAKAR Status: Signed Intake Intake Visit Reasons:?RIGHT KNEE Is patient in pain?: Yes Allergies adhesive tape Allergy (Verified 02/16/22 11:21) RashIodinated Contrast Media Adverse Reaction (Mild, Verified 02/16/22 11:21) unknownsertraline [From Zoloft] Adverse Reaction (Verified 02/16/22 11:21) Unknown Medications aspirin 81 mg tablet,delayed release 81 mg PO DAILY [facility] 12/23/15 [History Confirmed 02/16/22] trazodone 50 mg tablet 50 - 100 mg PO QHS sleep 12/23/15 [History Confirmed 02/16/22] albuterol sulfate 90 mcg/actuation aerosol inhaler 1 - 2 puff inhalation Q4H PRN PRN Wheezing 08/31/18 [History Confirmed 02/16/22] metformin 500 mg tablet 500 mg PO BID DIABETES 08/31/18 [History Confirmed 02/16/22] multivitamin 1 tab PO DAILY 07/09/19 [History Confirmed 02/16/22] baclofen 10 mg tablet 10 mg PO PRN PRN Muscle Spasm 05/14/20 [History Confirmed 02/16/22] gabapentin 100 mg capsule 200 mg PO TID 05/14/20 [History Confirmed 02/16/22] ascorbic acid (vitamin C) 1,000 mg tablet 1,000 mg PO DAILY 08/10/20 [History Confirmed 02/16/22] hydrocodone-acetaminophen 5-325mg 5mg-325mg 1 tab PO BID PRN pain #30 tabs 09/16/20 [Rx Confirmed 02/16/22] ketoconazole 2 % shampoo 1 applic topical DIRECTED PRN 10/01/21 [History Confirmed 02/16/22] tamsulosin 0.4 mg capsule 0.4 mg PO DAILY PRN 10/01/21 [History Confirmed 02/16/22] linaclotide 72 mcg capsule 72 mcg PO DAILY #90 caps 11/03/21 [Rx Confirmed 02/16/22] atorvastatin 40 mg tablet 40 mg PO QHS CHOLESTEROL #90 tabs 11/19/21 [Rx Confirmed 02/16/22] naproxen sodium 220 mg capsule (Aleve) 220 mg PO BID PRN 02/04/22 [History Confirmed 02/16/22] PFSH Medical History?(Updated 02/16/22 @ 11:46 by Eugenia Quezada) Arthropathy of cervical facet joint Asthma Atherosclerotic heart disease of [place] coronary artery without angina pectoris Cervical spondylosis Chondromalacia of both patellae Chondromalacia, left knee Chondromalacia, right knee COVID-19 virus detected (11/19/20) Degeneration of cervical disc without myelopathy Degeneration of intervertebral disc of lumbosacral region Essential (primary) hypertension Fusion of spine, cervical region GERD (gastroesophageal reflux disease) Hyperlipemia Left knee DJD Nonrheumatic aortic (valve) stenosis with insufficiency Obesity Opioid dependence Radiculopathy of lumbosacral region Right knee DJD Spinal stenosis of lumbosacral region Spondylosis of lumbosacral region without myelopathy or radiculopathy Tear of medial meniscus of right knee Type 2 diabetes mellitus Surgical History? H/O cervical spine surgery (08/2020) H/O coronary artery bypass surgery (09/14/11) History of back surgery History of carpal tunnel release History of herniorrhaphy History of left heart catheterization (09/09/11) Family History? Brother?? Heart disease Myocardial infarction ?? ? 60's CAD (coronary artery disease)Father?? Myocardial infarction ?? ? 65 CAD (coronary artery disease) Social History? Smoking Status:? Never smoker alcohol intake:? current alcohol intake frequency: a few times a month substance use type:? does not use caffeine:? Yes Type: coffee Number of servings: 2 HPI RIGHT KNEE Details: Parts of this documentation were recorded by a scribe, this documentation accurately reflects the service provided and the decisions made by me, Dr. Talat Lund, DO 02/16/22 0755. JARET FIGUEROA is a 66 year old M here today for a followup after his right knee MRI. Patient states that his knee pain is worse. He has been wearing a knee brace which is helpful. Patient complains of pain over his medial knee. He denies any popping or clicking but isnt flexing his knee as much. Patient denies any instability. He had his MRI which is here for review. Ortho Exam General General: Yes no acute distress Neurologic: Yes alert and Yes oriented x3 Psychologic: Yes reasonable and appropriate Right Knee Skin/Wound: No erythema, No ecchymosis and No swelling Homans Sign: No Knee ROM: Yes ROM-Extension -20 to 0 and Yes ROM-Flexion 0-140 Examination: Yes Med jt line tenderness, Yes Lat jt line tenderness, Yes Crepitus and Yes Huey's Test Stability: NML: Anterior Drawer, NML: Aniyah, NML: Posterior Drawer, NML: Valgus 0, NML: Valgus 30 and NML: Varus 0 Patella Translation: 1 Patellar Tilt Normal: No Left Knee Patella Translation: 1 Right Elbow ELBOW: Positive Huey ? Supplemental Info 02/11/2022 MRI right knee: Vertical tear posterior horn medial meniscus Coding Level of Care Code Off vis,est,level 3 Diagnoses Tear of medial meniscus of right knee? S83.241A Assessment and Plan Assessment and Plan (1) Tear of medial meniscus of right knee: ?Status:?Acute Plan Educated the patient about the anatomy of the knee and etiology of his pain. Spoke with him about a knee arthroscopy. He would be able to ambulate following his surgery. Explained he is at an increased risk of osteoarthritis with the procedure. Reviewed the pre-operative plans with the patient. Risks and benefits of the procedure were fully explained, including but not limited to infection, neurovascular injury, continued pain, arthritis, stiffness, need for further surgery, re-injury, DVT, PE, general risks of anesthesia, and loss of limb or life. The patient understands all the risks and does wish to proceed with written consent. He will need to stop taking aleve 7 days prior to surgery. He may take tylenol. Patient [facility] return to [facility] about 3 weeks post surgery. Follow up for 2 week post op or sooner if pain, swelling, numbness or associated symptoms, or concerns develop.? All questions answered. Patient in agreement of plan. 02/16/22 1301 <Electronically signed by Talat Lund DO> Date Talat Lund DO Cosigner Signature: Date (if applicable) ? CC: ? ~I have re-examined the patient. There are no clinical changes since date of exam
--- NOTE | 2022-03-01 11:41 | OP.PCM_ITS ---
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 Risk benefits and alternatives of the procedure were reviewed including risk of bleeding infection nerve artery tissue damage need for further surgery continued pain and expected postoperative course. Procedure: The patient was met in the preoperative holding area. The operative extremity was identified by both patient and physician and family and marked. Patient was brought back to the operating room on a wheeled cart and transferred to the operating table in the supine position. Anesthesia was started. A well- padded tourniquet was placed on the operative extremity. A lower extremity leg fink was secured to the operative extremity. The contralateral extremity was well-padded and the end of the bed was flexed to 90 degrees. The patient was prepped and draped in the usual sterile fashion. A timeout was called to ensure the proper patient, procedure, and extremity were being contemplated. 0.5% Marcaine with epinephrine was injected into the planned incisional areas under the skin only. An Esmarch was used to exsanguinate the extremity and the tourniquet was inflated. An 11 blade scalpel was used to make a stab incision in the anterior lateral portal. The arthroscope was inserted into the intercondylar notch and inflow and outflow tubes were attached. Arthroscopic visualization began. The medial compartment was entered. An 18-gauge spinal needle was used to establish the placement for anterior medial portal. An 11 blade scalpel was used to make a stab incision. Blunt probe was inserted followed by a meniscal probe. The medial compartment was evaluated there was a tear of the posterior horn medial meniscus that began as a vertical tear and then extended posteriorly horizontally with the use of arthroscopic biting instruments shaver partial medial meniscectomy was performed there was noted to be a 20% area of the posterior medial tibial plateau that was grade III chondromalacia the ACL was found to be intact. The lateral compartment was entered there was grade 2 chondral softening and fibrillation but no meniscal pathology The arthroscope was switched to the medial portal to complete the procedure. The medial and lateral gutters were inspected and were free of loose bodies. The patellofemoral joint was inspected grade II chondromalacia. There was good patellar tracking. The knee was thoroughly irrigated and drained. An intra-articular injection with 5 cc 0.5% Marcaine plain and 40 mg of Depo-Medrol was injected intra-articularly. The arthroscope was removed the portals were closed with 3-0 nylon arthroscopic stitches. Followed by Xeroform 4 x 4's ABDs web roll and an Casimiro wrap. The tourniquet was let down and the drapes were removed. All counts were correct. The patient was brought back to the PACU in stable condition.
--- NOTE | 2022-03-01 11:46 | DCINST_ITS ---
Discharge Instructions Activity Weight Bearing Status: Weight bearing as tolerated Additional Activity Instructions:: Ice and elevate next 72 hours .keep dressing on clean and dry for 48 hours then may remove begin showering daily but do not submerge in tub or pool. After shower may apply Band-Aids . Encourage knee range of motion weightbearing as tolerated, use crutches until confident in knee then may discontinue. No strenuous activity. When not ambulating keep iced and elevated next 72 hours. Do not mix pain medication with recreational drugs or alcohol only take as prescribed can be addictive and abusive, call with any questions or concerns. Follow Up Care Please Follow Up With: Talat Lund DO When: 2 weeks Test Results: Test results from this visit will be discussed in further detail at your follow- up appointment, if applicable. Discharge Plan Admission Attending Provider: Talat Lund Primary Care Provider: Marlen Bear Discharge Orders/Prescriptions Prescriptions: New oxycodone 5 mg tablet 5 - 10 mg PO Q4H PRN (Reason: pain) 7 Days Qty: 30 0RF No Action multivitamin Tablet 1 tab PO DAILY hydrocodone-acetaminophen 5-325 mg tablet 1 tab PO BID PRN (Reason: pain) Qty: 30 0RF ketoconazole 2 % shampoo 1 applic TOPICAL DIRECTED PRN (Reason: SCALP) Label Comments: LATHER SCALP AND FACE. LET SIT FOR FIVE MINUTES THEN RINSE tamsulosin 0.4 mg capsule 0.4 mg PO DAILY PRN (Reason: Urinary Retention) Label Comments: TAKE 1 CAPSULE BY MOUTH EVERY DAY FOR 90 DAYS naproxen sodium [Aleve] 220 mg capsule 220 mg PO BID PRN (Reason: Pain) trazodone 50 MG tablet 50 - 100 mg PO QHS aspirin 81 MG tablet,delayed release (DR/EC) 81 mg PO DAILY metformin 500 MG tablet 500 mg PO BID albuterol sulfate 1 INHALER inhaler 1 - 2 puff INHALATION Q4H PRN PRN (Reason: Wheezing) baclofen 10 MG tablet 10 mg PO PRN PRN (Reason: Muscle Spasm) gabapentin 100 MG capsule 200 mg PO TID ascorbic acid (vitamin C) 1,000 MG tablet 1,000 mg PO DAILY linaclotide 72 mcg capsule 72 mcg PO DAILY atorvastatin 40 mg tablet 40 mg PO QHS Qty: 90 3RF Hold Instructions: 10/01/21- Myalgia and sleep issues Referrals / Follow Up: Marlen Bear MD [Primary Care Provider] - Disposition Disposition (needs filled in before D/C Order can be placed): Home, Self Care
[2022-03-01 11:56] VITALS: BP 129/62; BP 137/70; PULSE 65; RESP 16; TEMP 37; O2SAT 97
[2022-03-01 12:00] VITALS: BP 129/62; BP 144/77; PULSE 68; RESP 16; O2SAT 98
[2022-03-01 12:15] VITALS: BP 129/62; BP 142/71; PULSE 58; RESP 16; O2SAT 98
[2022-03-01 12:25] VITALS: BP 129/62; BP 131/73; PULSE 57; RESP 16; TEMP 36.4; O2SAT 93
[2022-03-01 12:51] LABS: Bedside Glucose 107 mg/dL (74-106)
[2022-03-01 13:16] VITALS: BP 128/84; BP 129/62; PULSE 62; RESP 16; TEMP 36.4; O2SAT 97
== END 2022-03-01 13:42 | disposition home or self-care (01) ==
LOC: SDC 09:20 → AC 09:21
PROVIDERS: Referring Provider Orthopaedic Surgery; Visit Provider Orthopaedic Surgery
PROC: (CPT 29870; principal; 2022-03-01 10:35)
DX: S83.241A Other tear of medial meniscus, current injury, right knee, initial encounter (principal); E11.9 Type 2 diabetes mellitus without complications; M94.261 Chondromalacia, right knee; I25.10 Atherosclerotic heart disease of native coronary artery without angina pectoris; J45.909 Unspecified asthma, uncomplicated; Z86.16 Personal history of COVID-19; K21.9 Gastro-esophageal reflux disease without esophagitis; I10 Essential (primary) hypertension; E66.9 Obesity, unspecified; E78.5 Hyperlipidemia, unspecified; I35.2 Nonrheumatic aortic (valve) stenosis with insufficiency; Z79.899 Other long term (current) drug therapy; Z79.82 Long term (current) use of aspirin; Z95.1 Presence of aortocoronary bypass graft; Z79.84 Long term (current) use of oral hypoglycemic drugs; G25.81 Restless legs syndrome; M48.07 Spinal stenosis, lumbosacral region; N40.1 Benign prostatic hyperplasia with lower urinary tract symptoms; N13.8 Other obstructive and reflux uropathy; X58.XXXA Exposure to other specified factors, initial encounter
CPT/HCPCS: 29881; 01400; 82962; J7120; J0702; J2405

== ENCOUNTER → 2022-03-24 | Outpatient (CLI) | payer MEDICARE, SELFPAY ==
[2022-03-24 10:09] LABS: Bacteria 0 SEEN /hpf (None Seen); Mucous, Urine 0 SEEN /hpf (<or=2+); Red Blood Cells-Urine 0 SEEN /hpf (0-5); White Blood Cells 0 SEEN /hpf (0-5)
[2022-03-24 12:05] LABS: Color, Urine Yellow (Yellow); Glucose, Dipstick Normal (Normal); Ketone-Dipstick Negative (Negative); Leukocyte Esterase-Dipstick Negative /ul (Negative); Nitrite-Dipstick Negative (Negative); Occult Blood-Urine Negative /ul (Negative); Protein-Dipstick Negative (Negative); Specific Gravity, Urine 1.015 (1.002-1.030); Urine Bilirubin Dipstick Negative (Negative); Urine Clarity Clear (Clear); Urine Urobilinogen Normal (Normal)
[2022-03-24 12:14] LABS: Squamous Epithelial Cells - UA 0-5 SEEN /hpf (0-5)
== END | disposition home or self-care (01) ==
LOC: LABSPEC 10:07
PROVIDERS: Referring Provider Physician Assistant; Visit Provider Physician Assistant
DX: R53.83 Other fatigue (principal); R35.0 Frequency of micturition
CPT/HCPCS: 81001; 87086

== ENCOUNTER → 2022-04-21 | Outpatient (CLI) | payer MEDICARE, SELFPAY ==
[2022-04-21 10:07] LABS: Absolute Neutrophil Count 4.1 X10^3/uL (2.0-7.7); Basophil# 0.04 X10^3/uL; Basophil% 0.6 % (0-1); Eosinophils% 4.4 % (0-5); Hematocrit 41.4 % (40-54); Hemoglobin 13.8 g/dL (13.0-16.5); Lymphocyte % 25.1 % (19-41); Mean Corp Hgb Conc 33.3 g/dL (32-36); Mean Corpuscular Hgb 30.1 pg (27.0-32.0); Mean Corpuscular Volume 90.2 fL (80-94); Mean Platelet Vol. 8.5 fl (6.2-12.0); Monocyte# 0.64 X10^3/uL; Monocyte% 9.4 % (0-10); NRBC Flagged by Analyzer 0 % (0-5); Neutrophil # 4.09 X10^3/uL (2.7-7.7); Neutrophil % 60.4 % (47-70); Platelet Count 261 K/mm3 (150-450); RBC Distribution Width CV 13.3 % (11.6-14.6); RBC Distribution Width SD 43.8 fl (35.1-43.9); Red Blood Count 4.59 M/mm3 (4.6-6.2); White Blood Count 6.8 K/mm3 (4.4-11.0)
[2022-04-21 10:26] LABS: Hemoglobin A1c 6.7 % (3.8-5.6)
[2022-04-21 10:37] LABS: Vitamin D,25 Hydroxy 38.8 ng/mL
[2022-04-21 10:59] LABS: ALB/GLOB Ratio 1.1 RATIO (0.9-2.4); AST(SGOT) 21 U/L (15-37); Alanine Aminotransfer ALT/SGPT 31 U/L (16-61); Albumin, Serum 3.7 g/dL (3.2-5.0); Alkaline Phosphatase 100 U/L (45-117); Anion Gap 7 (5-15); BUN 22 mg/dL (7-18); BUN/Creat Ratio 23.1 RATIO (10-20); Bilirubin, Direct 0.17 mg/dL (0.00-0.30); Calcium,Total 9.2 mg/dL (8.5-10.1); Chloride 106 mmol/L (98-107); Cholesterol 184 mg/dL (200); Creatinine, Serum 0.95 mg/dL (0.70-1.30); EST Glomerular Filtration Rate 83 mL/min (>60); Est Glom Filt Rate - Afr Amer 101 mL/min (>60); Globulin 3.5 g/dL (2.2-4.2); Glucose 114 mg/dL (74-106); High Density Lipoprotein 59 mg/dL; Potassium 4.7 mmol/L (3.5-5.1); Protein, Total 7.2 g/dL (6.4-8.2); Sodium Level 139 mmol/L (136-145); Thyroid Stim Hormone (TSH) 2.99 uIU/mL (0.358-3.74); Triglycerides 50 mg/dL; Very Low Density Lipoprotein 10 mg/dL (5-40)
== END | disposition home or self-care (01) ==
LOC: LAB 09:29
PROVIDERS: Visit Provider Internal Medicine
DX: I25.10 Atherosclerotic heart disease of native coronary artery without angina pectoris (principal); E11.9 Type 2 diabetes mellitus without complications; N40.1 Benign prostatic hyperplasia with lower urinary tract symptoms; N13.8 Other obstructive and reflux uropathy; I10 Essential (primary) hypertension; E78.5 Hyperlipidemia, unspecified; Z11.52 Encounter for screening for COVID-19; Z95.1 Presence of aortocoronary bypass graft; E55.9 Vitamin D deficiency, unspecified
CPT/HCPCS: 36415; 80053; 80061; 82248; 82306; 83036; 84443; 85025

== ENCOUNTER 2022-06-20 09:08 | Day surgery (SDC) | payer MEDICARE, SELFPAY ==
[2022-06-20] VITALS (7 sets, daily range): BP systolic 103–139; BP diastolic 70–83; PULSE 60–66; RESP 16–18; TEMP 36.5–37; O2SAT 92–98; BMI 31.3
[2022-06-20] MEDS: Lactated Ringers 1,000 ML 15 ML IV (09:50)
--- NOTE | 2022-06-20 09:54 | RAD_ITS ---
PROCEDURE: Caudal block. DATE OF EXAMINATION: 06/20/2022. INDICATION: Male, 67 years old. Chronic low back pain. FLUOROSCOPY TIME (if supplied): (7 seconds) minutes/seconds. 2 images were submitted. RAD/Fluor Guidance for Spine Inj IMPRESSION: Intraoperative imaging provided for caudal block. Electronically Signed: Jaspreet Armstrong MD at 14:44 EST ,
[2022-06-20] MEDS: Bupivacaine 0.25% 30 ML Vial (10:01)
[2022-06-20] MEDS: MethylPREDNISolone Acetate 80 MG/ML Vial (10:01)
[2022-06-20] MEDS: 0.9% Normal Saline (Pres. free 10 ML Vial (10:01)
[2022-06-20] MEDS: Lidocaine 1% (5 ml sdv) 5 ML Vial (10:01)
[2022-06-20 10:11] LABS: Bedside Glucose 120 mg/dL (74-106)
--- NOTE | 2022-06-20 10:52 | OP.PCM_ITS ---
Report of Operation Date of Procedure: 06/20/22 Pre-Operative Diagnosis: Lumbosacral radiculopathy, lumbosacral degenerative di sc disease, lumbosacral spinal stenosis Post-Operative Diagnosis: Lumbosacral radiculopathy, lumbosacral degenerative disc disease, lumbosacral spinal stenosis Surgery/Procedure Performed:: Caudal epidural steroid injection under fluoroscopic guidance Type of Anesthesia: MAC Estimated Blood Loss (mL): Minimal Description of Procedure: DESCRIPTION OF PROCEDURE: History and physical of today was reviewed. Risks and benefits of the procedure were explained. The patient understood and agreed to proceed. Informed consent was obtained. IV inserted per routine protocol. The patient was taken to the operating room and placed in the prone position with a pillow positioned underneath the abdomen. The lower back and tailbone area was prepped and draped in a sterile fashion using iodine x3. Under fluoroscopy guidance on a lateral view, the caudal space was identified. The skin and subcutaneous tissue was anesthetized with approximately 3 mL of 1% lidocaine using a 25-gauge regular needle. Under direct visualization with fluoroscopy, using a 22-gauge 3-1/2-inch spinal needle, the needle was advanced via the skin through the sacral hiatus. The tip of the needle was passed through the sacrococcygeal ligament and advanced to approximately S4 area. After negative aspiration of blood or CSF, a total of 3 mL of contrast was injected to confirm correct placement of the needle as well as cephalad spread. The spread was followed to approximately L5 area. After confirmation on AP as well as lateral view and repeated negative aspiration, a total of 15 mL of preservative-free 0.125% Marcaine with 80 mg of Depo-Medrol was injected easily. The needle was then removed intact. The patient experienced no sign or symptoms of intrathecal or intravascular injection. The patient experienced no paresthesia. The procedure was completed without any apparent difficulty or any complications. The patient appeared to tolerate it well. ASSESSMENT AND PLAN: This is a 67-year-old male with lumbosacral radiculopathy, lumbosacral degenerative disc disease, lumbosacral spinal stenosis status post caudal epidural steroid injection, patient will continue his current medications, patient will follow in approximately 2 weeks for reevaluation. Complications None
== END 2022-06-20 10:51 | disposition home or self-care (01) ==
LOC: SDC 09:09 → AC 09:16
PROVIDERS: Referring Provider Anesthesiology Pain Medicine; Visit Provider Anesthesiology Pain Medicine
PROC: 3E0S3BZ Introduction of Anesthetic Agent into Epidural Space, Percutaneous Approach (ICD-10-PCS; CPT 62282; principal; 2022-06-20 11:05)
DX: M51.17 Intervertebral disc disorders with radiculopathy, lumbosacral region (principal); F11.20 Opioid dependence, uncomplicated; E11.9 Type 2 diabetes mellitus without complications; M48.07 Spinal stenosis, lumbosacral region; I25.10 Atherosclerotic heart disease of native coronary artery without angina pectoris; E78.5 Hyperlipidemia, unspecified; M79.7 Fibromyalgia; E66.9 Obesity, unspecified; Z68.31 Body mass index [BMI] 31.0-31.9, adult
CPT/HCPCS: 62323; 64483; 77003; 82962; J7120; J3490

== ENCOUNTER 2022-09-12 10:08 | Emergency (ER) | payer MEDICARE, SELFPAY ==
[2022-09-12 10:08] VITALS: BP 128/88; PULSE 71; RESP 16; TEMP 36.2; O2SAT 100; BMI 31.8
--- NOTE | 2022-09-12 10:46 | EX.ED.DYSGE1 ---
HPI History of Present Illness Chief Complaint: Abd Pain Narrative Narrative: 67-year-old male here with abdominal pain. Patient states he is abdominal pain that radiates to the back. Symptoms are constant severe. Notes symptoms have been ongoing for 2 weeks. [facility] Medical History Alcohol use Ambulates with cane Arthritis Arthropathy of cervical facet joint Asthma Atherosclerotic heart disease of [place] coronary artery without angina pectoris Back pain Cancer Cardiology follow-up encounter Cervical spondylosis Chewing tobacco nicotine dependence Chondromalacia of both patellae Chondromalacia, left knee Chondromalacia, right knee COVID-19 virus detected (11/19/20) Degeneration of cervical disc without myelopathy Degeneration of intervertebral disc of lumbosacral region Diabetes Dietary restriction Essential (primary) hypertension Fusion of spine, cervical region High cholesterol History of echocardiogram History of IBS History of pain when walking History of stress test Hyperlipemia Hypertension Injury of head and neck Left knee DJD Nonrheumatic aortic (valve) stenosis with insufficiency Obesity Opioid dependence Prostate disease Radiculopathy of lumbosacral region Restless legs Right knee DJD Shortness of breath on exertion Spinal stenosis of lumbosacral region Spondylosis of lumbosacral region without myelopathy or radiculopathy Syncope Tear of medial meniscus of right knee Type 2 diabetes mellitus Wears hearing aid Home Medications aspirin 81 mg tablet,delayed release 81 mg PO DAILY [facility] 12/23/15 [History Last Taken Unknown] multivitamin 1 tab PO DAILY 07/09/19 [History Last Taken Unknown] baclofen 10 mg tablet 10 mg PO PRN PRN Muscle Spasm 05/14/20 [History Last Taken Unknown] gabapentin 100 mg capsule 200 mg PO TID 05/14/20 [History Last Taken 03/01/22 07:00] ascorbic acid (vitamin C) 1,000 mg tablet 1,000 mg PO DAILY 08/10/20 [History Last Taken Unknown] ketoconazole 2 % shampoo 1 applic topical DIRECTED PRN SCALP 10/01/21 [History Last Taken Unknown] tamsulosin 0.4 mg capsule 0.4 mg PO DAILY PRN Urinary Retention 10/01/21 [History Last Taken Unknown] naproxen sodium 220 mg capsule (Aleve) 220 mg PO BID PRN Pain 02/04/22 [History Last Taken Unknown] linaclotide 72 mcg capsule 72 mcg PO DAILY IBS 02/23/22 [History Last Taken Unknown] guaifenesin 400 mg tablet 400 mg PO TID PRN congestion, cough #60 tabs 03/24/22 [Rx Last Taken Unknown] albuterol sulfate 90 mcg/actuation aerosol inhaler 1 - 2 puff inhalation Q4H PRN PRN Wheezing #8.5 grams 04/21/22 [Rx Last Taken Unknown] handicap placard #1 ea 04/21/22 [Rx Last Taken Unknown] trazodone 50 mg tablet 50 - 100 mg PO QHS sleep #90 tabs 04/21/22 [Rx Last Taken Unknown] atorvastatin 40 mg tablet 40 mg PO QHS CHOLESTEROL #90 tabs 06/22/22 [Rx Last Taken Unknown] metformin 500 mg tablet 500 mg PO BID DIABETES #180 tabs 06/23/22 [Rx Last Taken Unknown] fluticasone propionate 50 mcg/actuation nasal spray,suspension 1 - 2 spray intranasal BID PRN allergies, congestion #16 grams 08/02/22 [Rx Last Taken Unknown] dicyclomine 10 mg capsule 10 mg PO BID PRN Abdominal bloating 7 days #14 caps 09/12/22 [Rx Last Taken Unknown] ondansetron 4 mg disintegrating tablet 4 mg PO Q8H PRN nausea and vomiting #10 tabs 09/12/22 [Rx Last Taken Unknown] Allergy/AdvReac Type Severity Reaction Status Date / Time adhesive tape Allergy Rash Verified 09/12/22 10:12 Iodinated Contrast Media AdvReac Mild unknown Verified 09/12/22 10:12 sertraline [From Zoloft] AdvReac Unknown Verified 09/12/22 10:12 Family History Brother Heart disease Myocardial infarction 60's CAD (coronary artery disease) Father Myocardial infarction 65 CAD (coronary artery disease) Surgical History H/O cervical spine surgery (08/2020) H/O coronary artery bypass surgery (09/14/11) History of back surgery History of carpal tunnel release History of herniorrhaphy History of left heart catheterization (09/09/11) Hx of bilateral cataract extraction Social History Smoking Status: Current every day smoker tobacco type: smokeless tobacco alcohol intake: current alcohol intake frequency: a few times a month substance use type: does not use caffeine: Yes Type: coffee Number of servings: 2 ROS ROS ED ROS Narrative Constitutional: Denies fever HEENT: Denies sore throat Neck: Denies neck pain Cardiovascular: Denies chest pain, syncope Respiratory: Denies shortness of breath GI: Patient endorses abdominal pain : Denies changes in urinary habits Musculoskeletal: Denies muscle or joint pain Neurologic: Denies numbness weakness or loss of sensation Skin denies rash EXAM Physical Exam Narrative Exam Narrative: Nursing triage notes reviewed, Vital signs reviewed Constitutional: please see mdm HENT: MMM Eyes: Pupils equal round and reactive to light, Extraocular muscles intact Neck: No stridor, no JVD, full neck ROM Lungs: Clear to auscultation, No wheezing or rales. No increased work of breathing, no conversational dyspnea, no accessory muscle use, no nasal flaring. No respiratory distress noted Heart: Regular rate and rhythm, No murmurs, No rubs and No gallops, 2+ distal pulses (radial, femoral, posterior tibial) in all extremities Abdomen: Soft, there is some mild distention noted to the belly, normal active bowel sounds there is no tenderness, rigidity, rebound or guarding, no obvious peritoneal signs, no palpable pulsatile abdominal masses, no auscultated abdominal bruit : No CVAT Extremities: No edema Neuro: No focal neurological deficits, cranial nerves II through XII intact, 5/5 strength in all extremities. Intact sensation to light touch in all extremities, 2+ reflexes bilateral patella dens. Normal gait. No ataxia. Skin: No rash or lesions noted Const Vital Signs: 09/12/22 10:08 09/12/22 12:10 Temperature 97.2 F L Temperature Source Temporal Pulse Rate 71 Respiratory Rate 16 16 Blood Pressure 128/88 H Blood Pressure Mean 101 Pulse Ox 100 Oxygen Delivery Method Room Air Room Air [facility] MDM Narrative Medical decision making narrative: Chief Complaint: Abdominal distention External records reviewed: No recent advanced imaging of the abdomen or pelvis noted I considered: Patient was hemodynamically stable, afebrile, nontoxic-appearing. Exam without evidence of peritoneal signs did note some mild distention AAA, small bowel obstruction, abdominal perforation, appendicitis, pancreatitis, hepatobiliary pathology (acute cholecystitis), mesenteric ischemia, abnormalities such as ovarian pathology, PID. I obtained a CT scan of his abdomen pelvis rule out obstruction, perforation or other surgical pathology including AAA. Patient had no urinary symptoms have a low suspicion for UTI however did obtain a UA as well. Obtain labs without pancreatitis, hepatobiliary pathology. Obtain lactate to ascertain the patient any risk for mesenteric ischemia. Labs and images were remarkable for no evidence of systemic inflammation, significant dehydration, acute kidney injury, hepatobiliary pathology, UTI. CT scan showed no evidence of acute surgical process, AAA or other acute intra-abdominal pathologies. The etiology the patient's complaints are unclear however does not represent a life or limb threatening etiology. Will discharge patient with instructions to take Tylenol, ibuprofen as needed and will prescribe the patient Bentyl for symptomatic relief Factors affecting care: History of coronary artery bypass, hypertension, hyperlipidemia, type 2 diabetes, opiate dependent Social determinants of health: Tobacco use, occasional alcohol use Shared decision making: I will have a discussion with the patient and or visitors regarding risk/benefits of further testing or admission. They will be made aware of of the risk/benefits inherent in this decision they will be given the opportunity to voice understanding. Consults: None Lab Data Attestation: I reviewed the patient's lab results. Lab results narrative: CBC without leukocytosis, severe anemia, no thrombocytopenia. CBC without leukocytosis, severe anemia, no thrombocytopenia. LFTs with baseline hyperbilirubinemia, no significant obstructive pathology Lipase is wnl indicating no pancreatic inflammation. Urinalysis without evidence of urine infection Labs: Laboratory Results - last 24 hr 09/12/22 09/12/22 09/12/22 10:44 10:44 11:15 WBC 7.1 RBC 4.82 Hgb 14.1 Hct 43.2 MCV 89.6 MCH 29.3 MCHC 32.6 RDW Std Deviation 41.9 RDW Coeff of Frankie 12.7 Plt Count 249 MPV 8.5 Immature Gran % (Auto) 0.300 Neut % (Auto) 62.5 Lymph % (Auto) 25.2 [place] % (Auto) 8.6 Eos % (Auto) 2.7 Baso % (Auto) 0.7 Absolute Neuts (auto) 4.4 Absolute Lymphs (auto) 1.78 Nucleated RBC % 0 Sodium 140 Potassium 4.2 Chloride 108 H Carbon Dioxide 27.0 Anion Gap 5 BUN 20 H Creatinine 0.85 Estim Creat Clear Calc 84.69 Est GFR (MDRD) Af Amer 114 Est GFR (MDRD) Non-Af 95 BUN/Creatinine Ratio 23.4 H Glucose 110 H Lactic Acid Calcium 9.5 Total Bilirubin 1.30 H Direct Bilirubin 0.30 AST 21 ALT 29 Alkaline Phosphatase 96 Total Protein 7.2 Albumin 3.8 Globulin 3.4 Lipase 123 Urine Color Yellow Urine Clarity Clear Urine pH 5.0 Ur Specific [place] 1.020 Urine Protein 15 H Urine Glucose (UA) Normal Urine Ketones Negative Urine Occult Blood Negative Urine Nitrite Negative Urine Bilirubin Negative Urine Urobilinogen Normal Ur Leukocyte Esterase Negative Urine RBC 0 SEEN Urine WBC 0 SEEN Ur Squamous Epith Cells 0 SEEN Urine Bacteria 0 SEEN Urine Mucus 0 SEEN 09/12/22 11:20 WBC RBC Hgb Hct MCV MCH MCHC RDW Std Deviation RDW Coeff of Frankie Plt Count MPV Immature Gran % (Auto) Neut % (Auto) Lymph % (Auto) [place] % (Auto) Eos % (Auto) Baso % (Auto) Absolute Neuts (auto) Absolute Lymphs (auto) Nucleated RBC % Sodium Potassium Chloride Carbon Dioxide Anion Gap BUN Creatinine Estim Creat Clear Calc Est GFR (MDRD) Af Amer Est GFR (MDRD) Non-Af BUN/Creatinine Ratio Glucose Lactic Acid 0.8 Calcium Total Bilirubin Direct Bilirubin AST ALT Alkaline Phosphatase Total Protein Albumin Globulin Lipase Urine Color Urine Clarity Urine pH Ur Specific [place] Urine Protein Urine Glucose (UA) Urine Ketones Urine Occult Blood Urine Nitrite Urine Bilirubin Urine Urobilinogen Ur Leukocyte Esterase Urine RBC Urine WBC Ur Squamous Epith Cells Urine Bacteria Urine Mucus Radiography Diagnostic Testing: Clinical Impression(s) from Imaging Studies Abdomen/Pelvis CT 09/12/22 10:58 IMPRESSION: Scattered sigmoid diverticula. Fatty infiltration of the liver. Solitary gallstone in the fundal portion of the gallbladder. Diffuse gastric wall thickening although the stomach is not completely distended. Electronically Signed: Jaspreet Armstrong MD at 12:26 EST , EKG Initial EKG: Comments: EKG with normal sinus rhythm, normal axis, normal intervals, no STEMI Discharge Plan Triage Chief Complaint: Abd Pain ED Provider: Scotty Warner Dx/Rx/DC Orders Clinical Impression: Abdominal distension, Essential (primary) hypertension, Type 2 diabetes mellitus Instructions: ED Abdominal Pain Unkn Cause Male... Prescriptions: New dicyclomine 10 mg capsule 10 mg PO BID PRN (Reason: Abdominal bloating) 7 Days Qty: 14 0RF ondansetron 4 mg tablet,disintegrating 4 mg PO Q8H PRN (Reason: nausea and vomiting) Qty: 10 0RF No Action multivitamin Tablet 1 tab PO DAILY ketoconazole 2 % shampoo 1 applic TOPICAL DIRECTED PRN (Reason: SCALP) Label Comments: LATHER SCALP AND FACE. LET SIT FOR FIVE MINUTES THEN RINSE tamsulosin 0.4 mg capsule 0.4 mg PO DAILY PRN (Reason: Urinary Retention) Label Comments: TAKE 1 CAPSULE BY MOUTH EVERY DAY FOR 90 DAYS (DME) handicap placard See Rx Instructions .Route .MEDSUPPLY Qty: 1 0RF Rx Instructions: fatique , pain in right knee , oteoarathritis naproxen sodium [Aleve] 220 mg capsule 220 mg PO BID PRN (Reason: Pain) guaifenesin 400 mg tablet 400 mg PO TID PRN (Reason: congestion, cough) Qty: 60 1RF fluticasone propionate 50 mcg/actuation spray,suspension 1 - 2 spray intranasal BID PRN (Reason: allergies, congestion) Qty: 16 3RF Rx Instructions: administer into each nostril; 2 sprays in each nostril for the first week aspirin 81 MG tablet,delayed release (DR/EC) 81 mg PO DAILY baclofen 10 MG tablet 10 mg PO PRN PRN (Reason: Muscle Spasm) gabapentin 100 MG capsule 200 mg PO TID ascorbic acid (vitamin C) 1,000 MG tablet 1,000 mg PO DAILY linaclotide 72 mcg capsule 72 mcg PO DAILY albuterol sulfate 90 mcg/actuation HFA aerosol inhaler 1 - 2 puff INHALATION Q4H PRN PRN (Reason: Wheezing) Qty: 8.5 3RF trazodone 50 mg tablet 50 - 100 mg PO QHS Qty: 90 3RF atorvastatin 40 mg tablet 40 mg PO QHS Qty: 90 3RF Hold Instructions: 10/01/21- Myalgia and sleep issues metformin 500 mg tablet 500 mg PO BID Qty: 180 3RF Primary Care Provider: Marlen Bear: Marlen Bear MD [Primary Care Provider] - Activity Restrictions/Additional Instructions: Please return if your symptoms change or worsen. Please return if you develop difficulty urinating, if you do not have bowel movements for greater than 1 week. If you develop vomiting that is not alleviated by Zofran. Please take Bentyl as needed for abdominal cramping. Please eat a healthy diet. Please increase your fiber intake. Please follow with your primary care physician the next billable appointment. Disposition Disposition: Home, Self Care
--- NOTE | 2022-09-12 10:58 | EKG12_ITS ---
Test Reason : Blood Pressure : / mmHG Vent. Rate : 061 BPM Atrial Rate : 061 BPM P-R Int : 186 ms QRS Dur : 106 ms QT Int : 408 ms P-R-T Axes : 023 -04 019 degrees QTc Int : 410 ms Normal sinus rhythm Normal ECG Confirmed by MARCOS RUIZ, JULIANO ([id number]), video editor ROSALIE FERRO ([id number]) on 09/14/2022 2:10:16 PM Referred By: Confirmed By:JULIANO RODRÍGUEZ MD
--- NOTE | 2022-09-12 10:58 | CT_ITS ---
STUDY: CT ABDOMEN AND PELVIS WITH CONTRAST REASON FOR EXAM: Male, 67 years old. Abdominal pain, bloating, nausea r RADIATION DOSAGE (If Supplied By Facility): CTDIvol = ( 17.39 ) mGy, DLP = ( 1227.48 ) mGycm TECHNIQUE: Transaxial images were obtained from the dome of the diaphragm to the symphysis pubis without oral contrast. IV 100mL Isovue-300 was administered. Sagittal and coronal images were reconstructed. Individualized dose optimization techniques were used for this CT. COMPARISON: None. FINDINGS: Mild increased linear markings at the lung bases suggestive of a atelectasis and/or scarring. Coronary artery calcification. There is decreased attenuation of the liver consistent with steatosis. There is a solitary gallstone in the fundus of the gallbladder.. Normal spleen. Normal pancreas. Normal bilateral adrenal glands. Normal right kidney. Normal left kidney. Diffuse gastric wall thickening although the stomach is not distended at this time. Mild increased markings in the surrounding peritoneal fat. Normal small intestine. There are scattered colonic diverticula consistent with diverticulosis. The appendix is visualized and appears normal. There is diffuse atherosclerotic calcification of the abdominal aorta and its major visceral branches, without a demonstrated aneurysm. 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 Normal inferior vena cava. Normal retroperitoneum. Normal urinary bladder. The prostate measures 3.7 cm x 5 cm. Normal abdominal wall. There are diffuse degenerative changes of the visualized lumbar spine. Minimal retrolisthesis of L2 on L3. CT/Abdomen/Pelvis W IV Cont ONLY IMPRESSION: Scattered sigmoid diverticula. Fatty infiltration of the liver. Solitary gallstone in the fundal portion of the gallbladder. Diffuse gastric wall thickening although the stomach is not completely distended. Electronically Signed: Jaspreet Armstrong MD at 12:26 EST ,
[2022-09-12 11:10] LABS: Absolute Lymphocyte Count 1.78 X10^3/uL (0.83-4.51); Absolute Neutrophil Count 4.4 X10^3/uL (2.0-7.7); Basophil# 0.05 X10^3/uL; Basophil% 0.7 % (0-1); Eosinophil# 0.19 X10^3/uL; Eosinophils% 2.7 % (0-5); Hematocrit 43.2 % (40-54); Hemoglobin 14.1 g/dL (13.0-16.5); Lymphocyte # 1.78 X10^3/ul (0.83-4.51); Lymphocyte % 25.2 % (19-41); Mean Corp Hgb Conc 32.6 g/dL (32-36); Mean Corpuscular Hgb 29.3 pg (27.0-32.0); Mean Corpuscular Volume 89.6 fL (80-94); Mean Platelet Vol. 8.5 fl (6.2-12.0); Monocyte# 0.61 X10^3/uL; Monocyte% 8.6 % (0-10); NRBC Flagged by Analyzer 0 % (0-5); Neutrophil # 4.41 X10^3/uL (2.7-7.7); Neutrophil % 62.5 % (47-70); Platelet Count 249 K/mm3 (150-450); RBC Distribution Width CV 12.7 % (11.6-14.6); RBC Distribution Width SD 41.9 fl (35.1-43.9); Red Blood Count 4.82 M/mm3 (4.6-6.2); White Blood Count 7.1 K/mm3 (4.4-11.0)
[2022-09-12] MEDS: Ondansetron 4 MG/2 ML Vial IV (11:18)
[2022-09-12] MEDS: 0.9% Normal Saline 1,000 ML 1000 ML IV (11:18)
[2022-09-12] MEDS: Morphine 4 MG/ML Syringe IV (11:18)
[2022-09-12] MEDS: Dicyclomine 20 MG/2 ML Vial IM (11:18)
[2022-09-12 11:26] LABS: AST(SGOT) 21 U/L (15-37); Alanine Aminotransfer ALT/SGPT 29 U/L (16-61); Albumin, Serum 3.8 g/dL (3.2-5.0); Alkaline Phosphatase 96 U/L (45-117); Anion Gap 5 (5-15); BUN 20 mg/dL (7-18); BUN/Creat Ratio 23.4 RATIO (10-20); Calcium,Total 9.5 mg/dL (8.5-10.1); Chloride 108 mmol/L (98-107); Creatinine, Serum 0.85 mg/dL (0.70-1.30); EST Glomerular Filtration Rate 95 mL/min (>60); Est Glom Filt Rate - Afr Amer 114 mL/min (>60); Estimated Creatinine Clearance 84.69 ml/min; Globulin 3.4 g/dL (2.2-4.2); Glucose 110 mg/dL (74-106); Lipase 123 U/L (73-393); Potassium 4.2 mmol/L (3.5-5.1); Protein, Total 7.2 g/dL (6.4-8.2); Sodium Level 140 mmol/L (136-145)
[2022-09-12 11:28] LABS: Bacteria 0 SEEN /hpf (None Seen); Mucous, Urine 0 SEEN /hpf (<or=2+); Red Blood Cells-Urine 0 SEEN /hpf (0-5); Squamous Epithelial Cells - UA 0 SEEN /hpf (0-5); White Blood Cells 0 SEEN /hpf (0-5)
[2022-09-12 11:32] LABS: Color, Urine Yellow (Yellow); Glucose, Dipstick Normal (Normal); Ketone-Dipstick Negative (Negative); Leukocyte Esterase-Dipstick Negative /ul (Negative); Nitrite-Dipstick Negative (Negative); Occult Blood-Urine Negative /ul (Negative); Protein-Dipstick 15 mg/dl (Negative); Urine Bilirubin Dipstick Negative (Negative); Urine Clarity Clear (Clear); Urine Urobilinogen Normal (Normal)
[2022-09-12 11:57] LABS: Lactic Acid 0.8 mmol/L (0.4-1.9)
[2022-09-12 12:10] VITALS: RESP 16
== END 2022-09-12 13:10 | disposition home or self-care (01) ==
PROVIDERS: Emergency Provider Emergency Medicine; Visit Provider Emergency Medicine
DX: R14.0 Abdominal distension (gaseous) (principal); E11.9 Type 2 diabetes mellitus without complications; I10 Essential (primary) hypertension; I25.10 Atherosclerotic heart disease of native coronary artery without angina pectoris; F17.220 Nicotine dependence, chewing tobacco, uncomplicated; E78.5 Hyperlipidemia, unspecified
CPT/HCPCS: 74177; 80048; 80076; 81001; 83605; 83690; 85025; 93005; 96361; 96372; 96374; 96375; 99283; J7030; Q9967; A4216; J2405

== ENCOUNTER 2022-11-14 11:17 | Emergency (ER) | payer OTHER, MEDICARE, SELFPAY ==
[2022-11-14 11:20] VITALS: BP 155/83; PULSE 73; RESP 18; TEMP 36.7; O2SAT 98; BMI 25.5
--- NOTE | 2022-11-14 11:48 | CT_ITS ---
EXAM: CT ABDOMEN AND PELVIS WITH INTRAVENOUS CONTRAST CLINICAL INDICATION: Abdominal pain. Status post cholecystectomy. TECHNIQUE: Helically acquired images were obtained of the abdomen and pelvis with intravenous contrast. This CT exam was performed using one or more of the following dose reduction techniques: automated exposure control, adjustment of the mA and/or kV according to patient size, and/or use of iterative reconstruction technique. This report was created using [employer] report generation technology. CONTRAST: IV 100mL Isovue-300 RADIATION DOSE: CTDIvol = 16.5 mGy, DLP = 1236.28 mGy-cm COMPARISON: CT abdomen and pelvis with IV contrast 09/12/2022. FINDINGS: LOWER THORAX: Subsegmental atelectasis in the posterior lung bases. No cardiomegaly. No significant pericardial effusion. ABDOMEN: LIVER: Mild diffuse fatty infiltration of liver. GALLBLADDER AND BILE DUCTS: No visible gallbladder due to laparoscopic cholecystectomy. Minimal density in the cholecystectomy site are postop changes. No intra- or extrahepatic biliary ductal dilation. PANCREAS: Unremarkable. No focal cystic or solid mass. SPLEEN: Unremarkable. Normal size without focal cystic or solid mass. ADRENALS: Unremarkable. No nodules. KIDNEYS AND URETERS: Unremarkable. Normal renal size and position. No hydronephrosis. STOMACH AND BOWEL: Unremarkable. No stomach or bowel distention. No focal inflammatory change. PELVIS: APPENDIX: Normal. BLADDER: Unremarkable. REPRODUCTIVE: Unremarkable as visualized. No mass. ABDOMEN and PELVIS: INTRAPERITONEAL SPACE: Unremarkable. No ascites or other fluid collection. No free air. BONES/JOINTS: Postsurgical absence of the spinous processes at L3-L4 and L4-L5 disc space levels. Mild degenerative retrolisthesis of L2 on L3 and L3 on L4. No suspicious lytic or blastic abnormality. SOFT TISSUES: Unremarkable. No discrete abdominal or pelvic wall hernia. VASCULATURE: Calcified plaques along the abdominal aorta and minimal calcified plaques in the common iliac arteries. Noncalcified plaques in the left lateral wall of the distal abdominal aorta. Abdominal aorta is non-dilated. LYMPH NODES: Unremarkable. No enlarged lymph nodes. OTHER FINDINGS: Pronounced disc space height narrowing at L2-L3 and L3-L4 disc space levels. CT/Abdomen/Pelvis W IV Cont ONLY IMPRESSION: 1. Minimal postop changes of the cholecystectomy site. 2. No acute abnormality in the abdomen and pelvis. 3. No significant interval change when compared to 09/12/2022. Electronically Signed: Hardy Khan MD at 13:12 EDT ,
--- NOTE | 2022-11-14 11:49 | EDS_ITS ---
HPI History of Present Illness Chief Complaint: Back Informant: patient Onset/Context/Timing Onset: Today Narrative Narrative: Patient presents secondary to back pain. He had a cholecystectomy on Monday at [facility] with Dr. Pena. He states he been getting along quite well. He woke this morning with pain in the right side of his back that wraps around into the right upper quadrant. Pain is worse with any movement. He denies fever or chills. Although patient reports allergy to iodinated contrast, when asked patient states he got mild flushing years ago with the old contrast. He reports having a CT with an injection approximate 4 months ago and had no reaction. [facility] Medical History Alcohol use Ambulates with cane Arthritis Arthropathy of cervical facet joint Asthma Atherosclerotic heart disease of [place] coronary artery without angina pectoris Back pain Cancer Cardiology follow-up encounter Cervical spondylosis Chewing tobacco nicotine dependence Chondromalacia of both patellae Chondromalacia, left knee Chondromalacia, right knee COVID-19 virus detected (11/19/20) Degeneration of cervical disc without myelopathy Degeneration of intervertebral disc of lumbosacral region Diabetes Dietary restriction Essential (primary) hypertension Fusion of spine, cervical region High cholesterol History of echocardiogram History of IBS History of pain when walking History of stress test Hyperlipemia Hypertension Injury of head and neck Left knee DJD Nonrheumatic aortic (valve) stenosis with insufficiency Obesity Opioid dependence Prostate disease Radiculopathy of lumbosacral region Restless legs Right knee DJD Shortness of breath on exertion Spinal stenosis of lumbosacral region Spondylosis of lumbosacral region without myelopathy or radiculopathy Syncope Tear of medial meniscus of right knee Type 2 diabetes mellitus Wears hearing aid Home Medications aspirin 81 mg tablet,delayed release 81 mg PO DAILY HEART HEALTH 12/23/15 [History Last Taken Unknown] multivitamin 1 tab PO DAILY 07/09/19 [History Last Taken Unknown] baclofen 10 mg tablet 10 mg PO PRN PRN Muscle Spasm 05/14/20 [History Last Taken Unknown] gabapentin 100 mg capsule 200 mg PO TID 05/14/20 [History Last Taken 03/01/22 07:00] ascorbic acid (vitamin C) 1,000 mg tablet 1,000 mg PO DAILY 08/10/20 [History Last Taken Unknown] ketoconazole 2 % shampoo 1 applic topical DIRECTED PRN SCALP 10/01/21 [History Last Taken Unknown] tamsulosin 0.4 mg capsule 0.4 mg PO DAILY PRN Urinary Retention 10/01/21 [History Last Taken Unknown] naproxen sodium 220 mg capsule (Aleve) 220 mg PO BID PRN Pain 02/04/22 [History Last Taken Unknown] linaclotide 72 mcg capsule 72 mcg PO DAILY IBS 02/23/22 [History Last Taken Unknown] guaifenesin 400 mg tablet 400 mg PO TID PRN congestion, cough #60 tabs 03/24/22 [Rx Last Taken Unknown] albuterol sulfate 90 mcg/actuation aerosol inhaler 1 - 2 puff inhalation Q4H PRN PRN Wheezing #8.5 grams 04/21/22 [Rx Last Taken Unknown] handicap placard #1 ea 04/21/22 [Rx Last Taken Unknown] trazodone 50 mg tablet 50 - 100 mg PO QHS sleep #90 tabs 04/21/22 [Rx Last Taken Unknown] atorvastatin 40 mg tablet 40 mg PO QHS CHOLESTEROL #90 tabs 06/22/22 [Rx Last Taken Unknown] metformin 500 mg tablet 500 mg PO BID DIABETES #180 tabs 06/23/22 [Rx Last Taken Unknown] fluticasone propionate 50 mcg/actuation nasal spray,suspension 1 - 2 spray intranasal BID PRN allergies, congestion #16 grams 08/02/22 [Rx Last Taken Unknown] dicyclomine 10 mg capsule 10 mg PO BID PRN Abdominal bloating 7 days #14 caps 09/12/22 [Rx Last Taken Unknown] ondansetron 4 mg disintegrating tablet 4 mg PO Q8H PRN nausea and vomiting #10 tabs 09/12/22 [Rx Last Taken Unknown] pantoprazole 40 mg tablet,delayed release (Protonix) 40 mg PO DAILY #30 tabs 09/14/22 [Rx Last Taken Unknown] sucralfate 1 gram tablet (Carafate) 1 g PO QACHS #30 tabs 09/14/22 [Rx Last Taken Unknown] blood sugar diagnostic (FreeStyle Lite Strips) #100 ea 09/15/22 [Rx Last Taken Unknown] blood-glucose meter (FreeStyle Lite Meter kit) #1 ea 09/15/22 [Rx Last Taken Unknown] oxycodone-acetaminophen 5 mg-325 mg tablet (Percocet) 1 tab PO Q8H PRN pain 3 days #10 tabs 11/14/22 [Rx Last Taken Unknown] Allergy/AdvReac Type Severity Reaction Status Date / Time adhesive tape Allergy Rash Verified 11/14/22 11:19 Iodinated Contrast Media AdvReac Mild unknown Verified 11/14/22 11:19 sertraline [From Zoloft] AdvReac Unknown Verified 11/14/22 11:19 Family History Brother Heart disease Myocardial infarction 60's CAD (coronary artery disease) Father Myocardial infarction 65 CAD (coronary artery disease) Surgical History H/O cervical spine surgery (08/2020) H/O coronary artery bypass surgery (09/14/11) History of back surgery History of carpal tunnel release History of herniorrhaphy History of left heart catheterization (09/09/11) Hx of bilateral cataract extraction Social History Smoking Status: Current every day smoker tobacco type: smokeless tobacco alcohol intake: current alcohol intake frequency: a few times a month substance use type: does not use caffeine: Yes Type: coffee Number of servings: 2 ROS ROS ED Constitutional Constitutional ED: Denies chills or fever(s) Eyes Eyes: Denies change in vision or discharge from eye(s) ENT ENT ED: Denies discharge from eye(s), rhinorrhea or sore throat Cardiovascular Cardiovascular: Denies chest pain or palpitations Respiratory/Chest Respiratory/Chest: Denies cough or dyspnea Gastrointestinal Gastrointestinal: Reports abdominal pain; Denies diarrhea, nausea or vomiting Genitourinary Genitourinary ED: Denies dysuria Musculoskeletal Musculoskeletal: Reports back pain; Denies extremity pain Integumentary Denies Abrasions or rash Neurologic Neurologic: Denies headache(s) or weakness Allergic/Immunologic Allergic/Immunologic ED: Denies lip swelling or urticaria EXAM Physical Exam Const Vital Signs: 11/14/22 11:20 11/14/22 14:02 11/14/22 15:04 Temperature 98.1 F Temperature Source Temporal Pulse Rate 73 70 78 Respiratory Rate 18 18 16 Blood Pressure 155/83 H 147/84 H 136/72 H Blood Pressure Mean 107 105 93 Pulse Ox 98 93 96 Oxygen Delivery Method Room Air Room Air Room Air Positive well nourished and well developed General Appearance ED: well developed HEENT Reports normocephalic and head/scalp atraumatic Eyes PERRL and EOMs intact bilaterally Neck supple Chest Wall inspection of chest normal and palpation of chest normal Resp normal respiratory effort and clear to auscultation bilaterally Cardio regular rate and regular rhythm GI GI Narrative: Abdomen soft with appropriate right upper quadrant tenderness. Surgical sites are clean with no sign of infection. Palpation: soft Extremity normal to inspection Neuro oriented x3 and no sensory deficits noted Sensorium / Orientation: alert Motor Exam: strength 5/5 throughout Psych mental status grossly normal Skin no rashes or lesions noted MDM MDM MDM Narrative Medical decision making narrative: Labwork obtained to evaluate for leukocytosis, anemia, and electrolyte derangement. Urinalysis obtained to evaluate for infection/hematuria. CT scan abdomen pelvis with IV contrast ordered given his recent surgery and pain. Patient was ordered morphine and Zofran. The morphine was initially held as he had been given fentanyl with EMS, but upon return from CT scan was given IV morphine for pain control. Lab Data Attestation: I reviewed the patient's lab results. Labs: Laboratory Results - last 24 hr 11/14/22 11/14/22 11/14/22 11:15 11:15 13:55 WBC 12.4 H RBC 5.44 Hgb 16.0 Hct 48.5 MCV 89.2 MCH 29.4 MCHC 33.0 RDW Std Deviation 40.8 RDW Coeff of Frankie 12.5 Plt Count 312 MPV 8.5 Immature Gran % (Auto) 0.400 Neut % (Auto) 69.2 Lymph % (Auto) 20.7 [place] % (Auto) 7.3 Eos % (Auto) 1.8 Baso % (Auto) 0.6 Absolute Neuts (auto) 8.6 H Absolute Lymphs (auto) 2.56 Nucleated RBC % 0 Sodium 137 Potassium 3.4 L Chloride 99 Carbon Dioxide 33.0 H Anion Gap 5 BUN 17 Creatinine 1.01 Estim Creat Clear Calc 71.27 Est GFR (MDRD) Af Amer 94 Est GFR (MDRD) Non-Af 78 BUN/Creatinine Ratio 16.8 Glucose 118 H Calcium 9.9 Total Bilirubin 1.60 H Direct Bilirubin 0.32 H AST 19 ALT 32 Alkaline Phosphatase 134 H Total Protein 8.7 H Albumin 4.5 Globulin 4.2 Lipase 101 Urine Color Yellow Urine Clarity Clear Urine pH 7.0 Ur Specific [place] 1.010 Urine Protein Negative Urine Glucose (UA) Normal Urine Ketones Negative Urine Occult Blood Negative Urine Nitrite Negative Urine Bilirubin Negative Urine Urobilinogen Normal Ur Leukocyte Esterase Negative Urine RBC 0 SEEN Urine WBC 0 SEEN Ur Squamous Epith Cells 0 SEEN Urine Bacteria 0 SEEN Urine Mucus 0 SEEN Radiography Diagnostic Testing: Clinical Impression(s) from Imaging Studies Abdomen/Pelvis CT 11/14/22 11:48 IMPRESSION: 1. Minimal postop changes of the cholecystectomy site. 2. No acute abnormality in the abdomen and pelvis. 3. No significant interval change when compared to 09/12/2022. Electronically Signed: Hardy Khan MD at 13:12 EDT , Treatment and Re-Evaluation :: White count slightly elevated at 12.4 with normal differential. Chemistry studies significant only for slightly low potassium at 3.4. LFTs reveal total bili of 1.6 and direct bili of 0.32. Alk phos is 134. Lipase is normal at 101. Urinalysis reveals no evidence of infection or hematuria. CT scan of the abdomen pelvis reveals minimal postop changes with no other acute abnormality. Patient is able to get up and sit on the side of bed. He is able to stand up to urinate. He was given a dose of p.o. Flexeril here as he is still having some muscle spasms. Patient has baclofen at home for muscle spasms. He reports he is almost out of Percocet. He only been written for 10 tabs and I will write him another prescription. I will try to speak with his surgeon just to update him on her findings. I do not see any acute problems with the surgery site. Discharge Plan Triage Chief Complaint: Back ED Provider: Elvia Pineda Dx/Rx/DC Orders Clinical Impression: Back spasm Instructions: ED Back Spasm, No Trauma Prescriptions: New oxycodone-acetaminophen [Percocet] 5-325 mg tablet 1 tab PO Q8H PRN (Reason: pain) 3 Days Qty: 10 0RF No Action multivitamin Tablet 1 tab PO DAILY ketoconazole 2 % shampoo 1 applic TOPICAL DIRECTED PRN (Reason: SCALP) Label Comments: LATHER SCALP AND FACE. LET SIT FOR FIVE MINUTES THEN RINSE tamsulosin 0.4 mg capsule 0.4 mg PO DAILY PRN (Reason: Urinary Retention) Label Comments: TAKE 1 CAPSULE BY MOUTH EVERY DAY FOR 90 DAYS (DME) handicap placard See Rx Instructions .Route .MEDSUPPLY Qty: 1 0RF Rx Instructions: fatique , pain in right knee , oteoarathritis naproxen sodium [Aleve] 220 mg capsule 220 mg PO BID PRN (Reason: Pain) guaifenesin 400 mg tablet 400 mg PO TID PRN (Reason: congestion, cough) Qty: 60 1RF fluticasone propionate 50 mcg/actuation spray,suspension 1 - 2 spray intranasal BID PRN (Reason: allergies, congestion) Qty: 16 3RF Rx Instructions: administer into each nostril; 2 sprays in each nostril for the first week aspirin 81 MG tablet,delayed release (DR/EC) 81 mg PO DAILY baclofen 10 MG tablet 10 mg PO PRN PRN (Reason: Muscle Spasm) gabapentin 100 MG capsule 200 mg PO TID ascorbic acid (vitamin C) 1,000 MG tablet 1,000 mg PO DAILY linaclotide 72 mcg capsule 72 mcg PO DAILY dicyclomine 10 mg capsule 10 mg PO BID PRN (Reason: Abdominal bloating) 7 Days Qty: 14 0RF ondansetron 4 mg tablet,disintegrating 4 mg PO Q8H PRN (Reason: nausea and vomiting) Qty: 10 0RF albuterol sulfate 90 mcg/actuation HFA aerosol inhaler 1 - 2 puff INHALATION Q4H PRN PRN (Reason: Wheezing) Qty: 8.5 3RF trazodone 50 mg tablet 50 - 100 mg PO QHS Qty: 90 3RF atorvastatin 40 mg tablet 40 mg PO QHS Qty: 90 3RF Hold Instructions: 10/01/21- Myalgia and sleep issues metformin 500 mg tablet 500 mg PO BID Qty: 180 3RF sucralfate [Carafate] 1 gram tablet 1 g PO QACHS Qty: 30 0RF pantoprazole [Protonix] 40 mg tablet,delayed release (DR/EC) 40 mg PO DAILY Qty: 30 0RF (DME) FreeStyle Lite Strips Strip See Rx Instructions .Route Qty: 100 3RF Rx Instructions: Twice daily (DME) blood-glucose meter [FreeStyle Lite Meter] Kit See Rx Instructions .Route Qty: 1 0RF Rx Instructions: Test twice daily Primary Care Provider: Marlen Bear Referrals: Marlen Bear MD [Primary Care Provider] - Leroy Pena MD [Non-Staff] - Keep Trish appointment Disposition Disposition: Home, Self Care
[2022-11-14] MEDS: Ondansetron 4 MG/2 ML Vial IV (11:56)
[2022-11-14] MEDS: 0.9% Normal Saline 1,000 ML 150 ML IV (11:57)
[2022-11-14 12:14] LABS: Absolute Lymphocyte Count 2.56 X10^3/uL (0.83-4.51); Absolute Neutrophil Count 8.6 X10^3/uL (2.0-7.7); Basophil# 0.08 X10^3/uL; Basophil% 0.6 % (0-1); Eosinophil# 0.22 X10^3/uL; Eosinophils% 1.8 % (0-5); Hematocrit 48.5 % (40-54); Lymphocyte # 2.56 X10^3/ul (0.83-4.51); Lymphocyte % 20.7 % (19-41); Mean Corpuscular Hgb 29.4 pg (27.0-32.0); Mean Corpuscular Volume 89.2 fL (80-94); Mean Platelet Vol. 8.5 fl (6.2-12.0); Monocyte% 7.3 % (0-10); NRBC Flagged by Analyzer 0 % (0-5); Neutrophil # 8.58 X10^3/uL (2.7-7.7); Neutrophil % 69.2 % (47-70); Platelet Count 312 K/mm3 (150-450); RBC Distribution Width CV 12.5 % (11.6-14.6); RBC Distribution Width SD 40.8 fl (35.1-43.9); Red Blood Count 5.44 M/mm3 (4.6-6.2); White Blood Count 12.4 K/mm3 (4.4-11.0)
[2022-11-14 12:29] LABS: AST(SGOT) 19 U/L (15-37); Alanine Aminotransfer ALT/SGPT 32 U/L (16-61); Albumin, Serum 4.5 g/dL (3.2-5.0); Alkaline Phosphatase 134 U/L (45-117); Anion Gap 5 (5-15); BUN 17 mg/dL (7-18); BUN/Creat Ratio 16.8 RATIO (10-20); Bilirubin, Direct 0.32 mg/dL (0.00-0.30); Calcium,Total 9.9 mg/dL (8.5-10.1); Chloride 99 mmol/L (98-107); Creatinine, Serum 1.01 mg/dL (0.70-1.30); EST Glomerular Filtration Rate 78 mL/min (>60); Est Glom Filt Rate - Afr Amer 94 mL/min (>60); Estimated Creatinine Clearance 71.27 ml/min; Globulin 4.2 g/dL (2.2-4.2); Glucose 118 mg/dL (74-106); Lipase 101 U/L (73-393); Potassium 3.4 mmol/L (3.5-5.1); Protein, Total 8.7 g/dL (6.4-8.2); Sodium Level 137 mmol/L (136-145)
[2022-11-14] MEDS: Morphine 4 MG/ML Syringe IV (12:40)
[2022-11-14 14:01] LABS: Bacteria 0 SEEN /hpf (None Seen); Mucous, Urine 0 SEEN /hpf (<or=2+); Red Blood Cells-Urine 0 SEEN /hpf (0-5); Squamous Epithelial Cells - UA 0 SEEN /hpf (0-5); White Blood Cells 0 SEEN /hpf (0-5)
[2022-11-14 14:02] VITALS: BP 147/84; PULSE 70; RESP 18; O2SAT 93
[2022-11-14 14:03] LABS: Color, Urine Yellow (Yellow); Glucose, Dipstick Normal (Normal); Ketone-Dipstick Negative (Negative); Leukocyte Esterase-Dipstick Negative /ul (Negative); Nitrite-Dipstick Negative (Negative); Occult Blood-Urine Negative /ul (Negative); Protein-Dipstick Negative (Negative); Urine Bilirubin Dipstick Negative (Negative); Urine Clarity Clear (Clear); Urine Urobilinogen Normal (Normal)
[2022-11-14] MEDS: cycloBENZAPRine HCl 10 MG Tablet PO (15:00)
[2022-11-14 15:04] VITALS: BP 136/72; PULSE 78; RESP 16; O2SAT 96
--- NOTE | 2022-11-14 15:35 | NURSING ---
PAGED DR ALCOCER THROUGH [facility]
== END 2022-11-14 15:49 | disposition home or self-care (01) ==
PROVIDERS: Emergency Provider Emergency Medicine; PCP Internal Medicine; Visit Provider Emergency Medicine
DX: M62.830 Muscle spasm of back (principal); E11.9 Type 2 diabetes mellitus without complications; I25.10 Atherosclerotic heart disease of native coronary artery without angina pectoris; F17.220 Nicotine dependence, chewing tobacco, uncomplicated; I10 Essential (primary) hypertension; E78.00 Pure hypercholesterolemia, unspecified; Z90.49 Acquired absence of other specified parts of digestive tract
CPT/HCPCS: 74177; 80048; 80076; 81001; 83690; 85025; 96361; 96374; 96375; 99285; J7030; Q9967; A4216; J2405

== ENCOUNTER → 2023-01-18 | Outpatient (CLI) | payer MEDICARE, SELFPAY ==
--- NOTE | 2023-01-18 06:37 | ECHOCS_ITS ---
Reason For Study: CAD/ASHD Procedure This was a 2D Doppler, Color Flow transthoracic echocardiogram. The study was technically difficult. Contrast injection was performed. Exam performed in department. Left Ventricle Normal LV size. Left ventricular systolic function is normal. The estimated ejection fraction is 60 %. Stage 1 diastolic dysfunction. No regional wall motion abnormalities noted. Right Ventricle Normal RV size. Normal systolic function. Atria The left atrium is mildly enlarged. Normal right atrium. Mitral Valve Bileaflet diffuse mitral valve thickening. Mild (1+) eccentric mitral valve insufficiency. Tricuspid Valve Normal tricuspid valve. Mild (1+) tricuspid valve insufficiency. Pulmonary artery systolic pressure is 33 mmHg. Aortic Valve Trisinus/trileaflet aortic valve. Mild focal aortic valve calcification. Peak aortic valve gradient 31 mmHg. Mean aortic valve gradient 18 mmHg. Mild to moderate aortic stenosis. Pulmonic Valve Normal pulmonic valve. Great Vessels Normal aortic root. The pulmonary artery is normal size. Normal inferior vena cava. Pericardium/Pleural No pericardial effusion. Medication 22 gauge I.V. with prn adaptor inserted into left arm. Diluted definity 1.5ml given slow IV push to enhance endocardial definition. MMode/2D Measurements & Calculations LVIDd: 5.3 cm IVSd: 1.2 cm LVOT diam: 2.0 cm LVIDs: 3.8 cm LVPWd: 0.96 cm RVDd: 4.2 cm FS: 27.8 % LVOT area: 3.3 cm2 Ao root diam: 3.6 cm LAV(MOD-bp): 57.1 ml Aortic Valve Planimetry: 0.83 cm2 LA dimension: 5.0 cm LAV(MOD-bp) Indexed: 26.5 ml/m2 LAV(MOD-sp2): 57.9 ml LAV(MOD-sp4): 55.7 ml LA A4 area: 19.4 cm2 RA A4 area: 24.9 cm2 Time Measurements MV dec time: 0.27 sec Doppler Measurements & Calculations MV E max leodan: 67.0 cm/sec Lat Peak E' Leodan: 11.9 cm/sec Med Peak E' Leodan: 7.9 cm/sec MV A max leodan: 88.4 cm/sec E/E' lat: 5.6 E/E' med: 8.4 MV E/A: 0.76 MV V2 max: 100.0 cm/sec MV P1/2t max leodan: 69.4 cm/sec Ao V2 max: 274.8 cm/sec MV max P.0 mmHg MV P1/2t: 93.9 msec Ao max P.6 mmHg MV V2 mean: 52.2 cm/sec MV dec slope: 216.4 cm/sec2 Ao V2 mean: 198.2 cm/sec MV mean P.3 mmHg Ao mean P.1 mmHg MV V2 VTI: 34.8 cm MVA(P1/2t): 2.3 cm2 Ao V2 VTI: 70.2 cm MVA(VTI): 2.3 cm2 AV (velocity ratio): 0.34 PHUC(I,D): 1.1 cm2 PHUC(V,D): 1.2 cm2 LV V1 max: 102.6 cm/sec SV(LVOT): 79.0 ml PA V2 max: 137.1 cm/sec LV V1 max P.2 mmHg PA V2 mean: 78.6 cm/sec LV V1 mean P.4 mmHg LV V1 mean: 74.1 cm/sec LV V1 VTI: 24.2 cm TR max leodan: 270.7 cm/sec TR max P.3 mmHg ECHO/Echo Complete W/ Contrast Interpretation Summary Normal LV size. Left ventricular systolic function is normal. The estimated ejection fraction is 60 %. Stage 1 diastolic dysfunction. Mild focal aortic valve calcification. Mean aortic valve gradient 18 mmHg. Mild to moderate aortic stenosis. Contrast injection was performed. Ordering Physician: Rosa Maria Cuevas Referring Physician: Rosa Maria Cuevas Performed By: Erasmo Malhotra RCS
--- NOTE | 2023-01-18 16:28 | STRESSREP ---
Stress Test Report Pharmacologic myocardial perfusion stress test. 67-year-old man with a history of coronary artery disease Resting EKG demonstrates sinus rhythm with a rate of 63 bpm. Resting blood pressure is 118/74 mmHg. 0.4 mg of regadenoson was infused per usual protocol followed by rapid intravenous saline flush injection. Continuous EKG monitoring was performed. The maximum heart rate was 78 bpm which was 51% of max impacted heart rate the maximum workload was 1 metabolic equivalent. At rest there were no ST or T wave changes noted to suggest ischemia and at peak infusion nonspecific ST changes were noted which did not meet the criteria for ischemia. No clinical angina is noted. The final blood pressure was 122/64 mmHg. Myocardial perfusion protocol. 15.0 mCi of technetium 99m sestamibi was injected at rest. 0.4 mg of regadenoson was infused per usual protocol. At peak infusion 44.3 mCi of technetium 99m sestamibi was injected stress images were obtained stress and rest images were reconstructed and compared in the short axis vertical long and horizontal long axis. Gated images were also obtained. Perfusion SPECT analysis: Review of the stress images demonstrate normal uptake of tracer noted in all areas of the myocardium. The resting images similar demonstrated normal uptake of tracer noted in all areas of the myocardium. No areas of reversibility are noted to suggest ischemia and no previous infarct is noted. Gated SPECT analysis: The gated ejection fraction is 59%. Conclusion: Normal pharmacologic myocardial perfusion stress test. Preserved ejection fraction.
== END | disposition home or self-care (01) ==
PROVIDERS: PCP Internal Medicine; Referring Provider Physician Assistant Medical; Visit Provider Physician Assistant Medical
DX: I25.10 Atherosclerotic heart disease of native coronary artery without angina pectoris (principal); Z95.1 Presence of aortocoronary bypass graft; I35.2 Nonrheumatic aortic (valve) stenosis with insufficiency
CPT/HCPCS: 78452; 93017; 93306; A9500; Q9957; A4216; C8929; J2785

== ENCOUNTER → 2023-03-21 | Outpatient (CLI) | payer MEDICARE, SELFPAY ==
--- NOTE | 2023-03-21 13:14 | MRI_ITS ---
EXAM: MR HEAD WITHOUT AND WITH INTRAVENOUS CONTRAST CLINICAL INDICATION: Pain TECHNIQUE: Multiplanar and multisequence MR images of the brain were obtained without and with intravenous contrast. CONTRAST: IV 19ml clariscan COMPARISON: No relevant prior studies available. FINDINGS: BRAIN AND EXTRA-AXIAL SPACES: Small focus of nonspecific white matter disease along the right basal ganglia extending to the body of the right lateral ventricle No intra- or extra-axial hemorrhage. No evidence of acute infarct. No intracranial mass or mass effect. There is preservation of the bobby/white matter interface. Posterior fossa structures are unremarkable. Ventricles are appropriate for age. No hydrocephalus. Basal cisterns are patent. SELLA: Unremarkable. Normal sella turcica, pituitary gland, infundibular stalk, optic chiasm and hypothalamus. AUDITORY SYSTEM: Unremarkable. The internal auditory canals are patent. BONES/JOINTS: Unremarkable. No discrete lytic or blastic abnormalities. SINUSES: Unremarkable as visualized. Clear. MASTOID AIR CELLS: Unremarkable as visualized. Clear. ORBITS: Unremarkable as visualized. Both globes, extraocular muscles, optic nerves and retrobulbar fat appear unremarkable. VASCULATURE: Unremarkable as visualized. Normal flow voids in the major intracranial circulation. MRI/Brain W/WO Contrast IMPRESSION: No acute or inflammatory disease. Electronically Signed: Samy Horne MD at 2:23 EDT ,
[2023-03-21 14:15] LABS: EGFR FINGERSTICK > 60.0000 mL/min (>60)
== END | disposition home or self-care (01) ==
LOC: MRI 13:12
PROVIDERS: PCP Internal Medicine
DX: R51.9 Headache, unspecified (principal)
CPT/HCPCS: 70553; A9575

== ENCOUNTER 2023-04-14 12:00 | Outpatient (RCR) | payer MEDICARE, SELFPAY ==
--- NOTE | 2023-04-06 09:50 | HP.PTEVAL_ITS ---
Patient's Visit Information Visit Information Visit Information: JARET FIGUEROA is a 67 year old M referred to Physical Therapy by Dr. Ventura Godoy DO with a diagnosis of torticollis, VICTORIA. Date of Evaluation: 04/06/23 Physical Therapist: Vin Dawkins, DPT, OCS, CSCS Visit Plan Frequency: 2x /Week Duration: 4-6 Weeks Plan: 2x/week for 4-6 weeks as needed for 1. Consider neck STM and MH after treatment as an adjunct to stretches given today(UT, lev scap, cerv retraction, scap squeezes via HPE with HO) 2/ Focus on foam and weight shifting balance ex in therapy and VOR, funcitonal balance and home general strength should als o be instructed and progressed as safety allows. Include neck and postural strength. Subjective Subjective: I keep losing my balance to the left and gets pain L neck and side of face and makes face numb. This has been haoppening for 6 months and started out of nowhere. Using cane to get around b/c of this. H/o neck surgery 2 yrs ago [place] by /dr. Walt jo helped with VICTORIA and neck pain. Arms are Ok but not good due to OA. No numbness or tingling. B hand and wrist pain. has agent orange from [place] and is on disability for that. Retired disabilities from back surgeries many of them. sleep is not great but not typically sleep well. Symptoms are neck pain, VICTORIA and balance. VICTORIA: daily intermittent adn up to 8/10 , not sure why but can get it sitting. Brain scan and MRI was good. NECK: L , up to 8/10 intermittent. Balance: intermittently off and veers L , worse walking on uneven surfaces, wo rse with VICTORIA and neck pain. Hobbies fishing and yard work which he does, keeping moving is pretty good but stopping and sitting is worse. Basic ADLS, no problem. Exercise : 5000 steps a day Has had injections with dr. Diamond prior to surgery. None in a long time. Neuroapthy in legs for long time(agent orange vs DM) No spionning. Pain L neck: Pain Intensity (Out of 10): 3 Pain Intensity Range: 0 and 8 Objective Objective: L SB posture in neck 80% of the time at rest today, Also FW head moderately and protracted scap B. hard for him to retract and depres B scap, poor motor control. Just mild tender ness L UT and cervical paraspinals but not bad. UE AROM WFL, strength at 4- without myotomal problems. reflexes 1/3 bi and tri Sensation UE WNL to gross light touch. cervical aROM 50 extension with central pain, poor retraction, flexion is full but painful slightly L neck, rotations are 55 B without pain, SB is symmetrical AROM and stretchy on L when moving to R. - c/s compression test. Walking is safe with cane but FGa done without cane and had a LOB turning in hallway corrected by therapist, pt slow to correct. Balance/Special Test Scores Functional Gait Assessment Score: 20 % Disability: 33.3400 CATSIB Score (Max score 120 seconds): 73 Oswestry Low Back Score: 20 Goals Goal 1:: i appropriate home balance and general strength ex for posture, core adn LE Goal Time Frame: 4-6 Weeks Goal 2:: Pt score 23/30 on FGa to show improved balance adn safety Goal Time Frame: 4-6 Weeks Goal 3:: pt feel 50% better in overall balance and activity level Goal Time Frame: 4-6 Weeks Goal 4:: VICTORIA and neck pain improved by50% to 3-4/10 at worst Goal Time Frame: 4-6 Weeks Rehabilitation Potential Physical Therapy Diagnosis: imbalance, neck pain and VICTORIA, pt most worried about balance as he has history of neck problems. Rehabilitation Potential: Fair Anticipated Interventions Patient/Client Instruction: Educate patient on: Condition and Plan of Care For the Purpose of:: To decrease pain, To improve nutrient delivery to tissue, To increase tolerance to activity/condition/position, To improve gait and locomotor functions, To improve health of tissue and To improve safety with gait Therapeutic Exercise to Include: Strength training, Balance training, Postural training, Flexibilty training and Scapular Strength/Stabilization For the Purpose of:: To decrease pain, To increase ROM, To improve nutrient delivery to tissue, To increase tolerance to activity/condition/position, To improve gait and locomotor functions and To improve safety with gait Manual Therapy Techniques to Include: Petrissage and Soft tissue mobilization For the Purpose of:: To increase ROM and To improve nutrient delivery to tissue TENS: Yes Thermo therapy (hot pack): Yes For the Purpose of:: To decrease pain Text: Thank you for the opportunity to evaluate your patient. For Medicare and Medicare HMO plans, please review the plan of care and approve it. It will need to be FAXED BACK to us at [phone] for Medicare purposes. For Medicare only, by signing this I certify the plan of care. Please let me know if there are questions or concerns regarding this plan of care. Physician Signature: Date:
--- NOTE | 2023-05-02 12:52 | HP.PT.NRP ---
Patient Information Patient Information: JARET FIGUEROA was seen in my office for initial evaluation on 04/06/23. The following Plan of Care was established for this patient: POC Established Initial Frequency: 2x /Week Initial Duration: 4-6 Weeks Anticipated Interventions Patient/Client Instruction: Educate patient on: Condition and Plan of Care For the Purpose of:: To decrease pain, To improve nutrient delivery to tissue, To increase tolerance to activity/condition/position, To improve gait and locomotor functions, To improve health of tissue and To improve safety with gait Therapeutic Exercise to Include: Strength training, Balance training, Postural training, Flexibilty training and Scapular Strength/Stabilization For the Purpose of:: To decrease pain, To increase ROM, To improve nutrient delivery to tissue, To increase tolerance to activity/condition/position, To improve gait and locomotor functions and To improve safety with gait Manual Therapy Techniques to Include: Petrissage and Soft tissue mobilization For the Purpose of:: To increase ROM and To improve nutrient delivery to tissue TENS: Yes Thermo therapy (hot pack): Yes For the Purpose of:: To decrease pain Last Seen Last Seen: This patient was last seen in our office 04/14/23. Pertinent comments regarding their Physical therapy will appear below: Pt seen for two visits of POC and was mainly treated with soft tissue mobilization and balance. he returned to doctor with worsening VICTORIA and was ordered to hold therapy and get an MRI. Therefore at this point, I will discontinue. At this point I will be discontinuing this patient from physical therapy. I would be happy to see this patient again in the future if found appropriate by the physician. Thank you! Vin Dawkins, DPT, OCS, CSCS Balance/Gait/Functional tests Balance/Special Test Scores Functional Gait Assessment Score: 20 % Disability: 33.3400 CATSIB Score (Max score 120 seconds): 73 Oswestry Low Back Score: 20
== END 2023-04-14 19:00 | disposition home or self-care (01) ==
LOC: PT 12:00
PROVIDERS: PCP Internal Medicine; Referring Provider Orthopaedic Surgery; Visit Provider Orthopaedic Surgery
DX: M43.6 Torticollis (principal); R51.9 Headache, unspecified
CPT/HCPCS: 97110; 97140; 97162

== ENCOUNTER → 2023-05-06 | Outpatient (CLI) | payer MEDICARE, SELFPAY ==
--- NOTE | 2023-05-06 08:13 | MRI_ITS ---
STUDY: MRI CERVICAL SPINE WITHOUT CONTRAST REASON FOR EXAM: Male, 68 years old patient with neck pain and headaches. TECHNIQUE: Standardized fat and water weighted pulse sequences were obtained in the sagittal and axial planes. COMPARISON: MRI of the cervical spine dated July 06, 2020. FINDINGS: Normal foramen magnum and brainstem-cervical cord junction. Normal craniovertebral junction. Normal anterior atlantoaxial articulation. Normal odontoid process. Normal cervical lordosis. Normal vertebral bodies and posterior osseous elements. C2-3: Normal endplates. Normal disc height, signal and morphology. Normal central canal and intervertebral neural foramina. C3-4: Normal endplates. Normal disc height, signal and morphology. Normal central neto. There is moderate narrowing of bilateral intervertebral neural foramina with uncovertebral and facet joint hypertrophy. C4-5: There is mild broad central disk protrusion. There is mild degenerative arthropathy of the facet joints. Bilateral neuroforamina are narrowed without MR evidence for nerve impingement. There is mild acquired central canal stenosis. C5-6: There is mild annular disk bulge and osteophyte complex. There is mild degenerative arthropathy of the facet joints. Bilateral neuroforamina are narrowed without MR evidence for nerve impingement. There is no appreciable acquired central canal stenosis. C6-7: Patient appears to have had discectomy at this level. There is moderate left-sided neural foraminal narrowing and mild right-sided foraminal narrowing. There is bilateral uncovertebral joint hypertrophy. There is mild central acquired canal stenosis. C7-T1: Normal endplates. Normal disc height, signal and morphology. Normal central canal and intervertebral neural foramina. Normal cervical cord. There is no demonstrated cervical cord syrinx cavity. Normal visualized soft tissue structures. MRI/Spine Cervical (Routine) IMPRESSION: 1. Patient has had discectomy at C6-7. 2. Multilevel degenerative changes of cervical spine with neural foraminal narrowing and central canal stenosis, as described. Electronically Signed: Cherelle Squires MD at 5:32 EDT ,
== END | disposition home or self-care (01) ==
LOC: MRI 08:07
PROVIDERS: PCP Internal Medicine; Referring Provider Orthopaedic Surgery; Visit Provider Orthopaedic Surgery
DX: M54.2 Cervicalgia (principal)
CPT/HCPCS: 72141

== ENCOUNTER 2023-05-10 03:08 | Emergency (ER) | payer MEDICARE, SELFPAY ==
[2023-05-10 03:09] VITALS: PULSE 86; RESP 20; TEMP 36.6; O2SAT 94; BMI 32.0
--- NOTE | 2023-05-10 04:02 | EDS_ITS ---
HPI History of Present Illness Chief Complaint: Back Informant: patient and spouse/S.O. Narrative Narrative: Patient is a 68-year-old male with a past medical history BPH fibromyalgia type 2 diabetes and chronic back pain. He sees pain management and is on medication secondary to his back pain and states that he occasionally when he does receive injections to help control flareups. He states he is scheduled to have an injection in approximately 1 week. He denies any trauma or excessive activity but states that despite taking his normal medication his back pain is worsening. He denies any loss of bowel bladder control or IV drug use. He states that as he cannot get his pain controlled at home he presents for evaluation [facility] Medical History Agent orange exposure Alcohol use Ambulates with cane Arthritis Arthropathy of cervical facet joint Asthma Atherosclerotic heart disease of [place] coronary artery without angina pectoris Back pain Cancer Cardiology follow-up encounter Cervical spondylosis Chewing tobacco nicotine dependence Chondromalacia of both patellae Chondromalacia, left knee Chondromalacia, right knee COVID-19 virus detected (11/19/20) Degeneration of cervical disc without myelopathy Degeneration of intervertebral disc of lumbosacral region Diabetes Dietary restriction Essential (primary) hypertension Fusion of spine, cervical region High cholesterol History of echocardiogram History of IBS History of pain when walking History of steroid therapy History of stress test Hyperlipemia Hypertension Injury of head and neck Left knee DJD Non-smoker Nonrheumatic aortic (valve) stenosis with insufficiency Obesity Opioid dependence Prostate disease Radiculopathy of lumbosacral region Restless legs Right knee DJD Shortness of breath on exertion Smokeless tobacco use Spinal stenosis of lumbosacral region Spondylosis of lumbosacral region without myelopathy or radiculopathy Syncope Tear of medial meniscus of right knee Type 2 diabetes mellitus Wears hearing aid Home Medications aspirin 81 mg tablet,delayed release 81 mg PO DAILY HEART HE[facility] 12/23/15 [History Last Taken Unknown] multivitamin 1 tab PO DAILY 07/09/19 [History Last Taken Unknown] baclofen 10 mg tablet 10 mg PO PRN PRN Muscle Spasm 05/14/20 [History Last Taken Unknown] gabapentin 100 mg capsule 200 mg PO TID 05/14/20 [History Last Taken 03/01/22 07:00] ketoconazole 2 % shampoo 1 applic topical DIRECTED PRN SCALP 10/01/21 [History Last Taken Unknown] naproxen sodium 220 mg capsule (Aleve) 220 mg PO BID PRN Pain 02/04/22 [History Last Taken Unknown] albuterol sulfate 90 mcg/actuation aerosol inhaler 1 - 2 puff inhalation Q4H PRN PRN Wheezing #8.5 grams 04/21/22 [Rx Last Taken Unknown] handicap placard #1 ea 04/21/22 [Rx Last Taken Unknown] pantoprazole 40 mg tablet,delayed release (Protonix) 40 mg PO DAILY #30 tabs 09/14/22 [Rx Last Taken Unknown] blood sugar diagnostic (FreeStyle Lite Strips) #100 ea 09/15/22 [Rx Last Taken Unknown] blood-glucose meter (FreeStyle Lite Meter kit) #1 ea 09/15/22 [Rx Last Taken Unknown] linaclotide 72 mcg capsule 72 mcg PO DAILY IBS #90 caps 02/06/23 [Rx Last Taken Unknown] atorvastatin 40 mg tablet 40 mg PO QHS CHOLESTEROL #90 tabs 04/27/23 [Rx Last Taken Unknown] fluticasone propionate 50 mcg/actuation nasal spray,suspension 1 - 2 spray intranasal BID PRN allergies, congestion #16 grams 04/27/23 [Rx Last Taken Unknown] metformin 500 mg tablet 500 mg PO BID DIABETES #180 tabs 04/27/23 [Rx Last Taken Unknown] trazodone 50 mg tablet 50 - 100 mg (1 - 2 x 50 mg) PO QHS sleep #90 tabs 04/27/23 [Rx Last Taken Unknown] oxycodone 5 mg capsule 5 mg PO Q8H 05/10/23 [History Last Taken Unknown] lidocaine 5 % topical patch 2 patch topical DAILY #15 ea 05/11/23 [Rx Last Taken Unknown] Allergy/AdvReac Type Severity Reaction Status Date / Time adhesive tape Allergy Rash Verified 05/11/23 18:02 Iodinated Contrast Media AdvReac Mild unknown Verified 05/11/23 18:02 sertraline [From Zoloft] AdvReac Unknown Verified 05/11/23 18:02 Family History Brother Heart disease Myocardial infarction 60's CAD (coronary artery disease) Father Myocardial infarction 65 CAD (coronary artery disease) Surgical History H/O cervical spine surgery (08/2020) H/O coronary artery bypass surgery (09/14/11) History of back surgery History of carpal tunnel release History of herniorrhaphy History of lateral meniscus repair of right knee (~2021) History of left heart catheterization (09/09/11) Hx laparoscopic cholecystectomy (~11/2022) Hx of bilateral cataract extraction Social History Smoking Status: Never smoker alcohol intake: current alcohol intake frequency: a few times a month substance use type: does not use caffeine: Yes Type: coffee Number of servings: 2 ROS ROS ED Constitutional Constitutional ED: Denies chills or fever(s) ENT ENT ED: Denies sore throat Cardiovascular Cardiovascular: Denies chest pain Respiratory/Chest Respiratory/Chest: Denies cough or dyspnea Gastrointestinal Gastrointestinal: Denies abdominal pain, diarrhea, nausea or vomiting Genitourinary Genitourinary ED: Denies dysuria or hematuria Musculoskeletal Musculoskeletal: Reports back pain Integumentary Denies rash Neurologic Neurologic: Denies headache(s) Hematologic/Lymphatic Hematologic/Lymphatic: Denies easy bleeding or easy bruising EXAM Physical Exam Const Vital Signs: 05/10/23 03:09 Temperature 98 F Temperature Source Temporal Pulse Rate 86 Respiratory Rate 20 H Pulse Ox 94 Oxygen Delivery Method Room Air Positive well nourished and well developed General Appearance ED: well developed HEENT HEENT Narrative: Normocephalic atraumatic Eyes PERRL and EOMs intact bilaterally General Eye ED: Negative for scleral icterus Neck supple Resp normal respiratory effort and clear to auscultation bilaterally Cardio regular rate and regular rhythm Rate: other Other Details: Radial and carotid pulses are equal and symmetric GI non-tender and non-distended GI Narrative: Abdomen is soft nontender nondistended with hypoactive bowel sounds no voluntary guarding or rigidity or pulsatile mass. Auscultation: hypoactive bowel sounds Palpation: soft Back/Spine Back/Spine Narrative: No bony deformity or step-off of the thoracic or lumbar spine. No saddle anesthesia. There is 1 beat of clonus present of the left foot none on the right. Straight leg raise is positive on the left at approximately 45 degrees. Negative Babinski bilaterally. No overlying soft tissue changes to suggest trauma or infection Extremity normal to inspection Neuro oriented x3 and CN's II-XII intact bilaterally Sensorium / Orientation: alert Psych mental status grossly normal Skin no rashes or lesions noted MDM MDM MDM Narrative Medical decision making narrative: Patient presented to the ER hypertensive but otherwise with stable vitals. He has a known history of chronic back pain and his physical exam does show changes concerning for potential nerve compression. At this time he is already on home medication to help with back pain and has a outpatient injection scheduled for approximately 1 week. He does not have signs of neuro claudication and he has no risk factors for cauda equina or epidural abscess. Therefore do not feel there is need for imaging or laboratory studies at this time. Patient recently been medicated to help reduce his pain and continue his home medications previously directed and follow-up with his pain management doctor and/or orthopedic surgeon for potential MRI and/or further treatment options History & Record Review Discussion w/independent historian: Patient and Significant other Discharge Plan Triage Chief Complaint: Back ED Provider: Samy Aguilar Dx/Rx/DC Orders Clinical Impression: Acute lumbar radiculopathy, Essential (primary) hypertension, Type 2 diabetes mellitus Instructions: Understanding Lumbar Radiculopathy Prescriptions: No Action multivitamin Tablet 1 tab PO DAILY ketoconazole 2 % shampoo 1 applic TOPICAL DIRECTED PRN (Reason: SCALP) Patient Comments: LATHER SCALP AND FACE. LET SIT FOR FIVE MINUTES THEN RINSE (DME) handicap placard See Rx Instructions .Route .MEDSUPPLY Qty: 1 0RF Rx Instructions: fatique , pain in right knee , oteoarathritis naproxen sodium [Aleve] 220 mg capsule 220 mg PO BID PRN (Reason: Pain) lidocaine 5 % adhesive patch,medicated 2 patch topical DAILY Qty: 15 0RF Rx Instructions: leave on most painful area for up to 12 hrs aspirin 81 MG tablet,delayed release (DR/EC) 81 mg PO DAILY baclofen 10 MG tablet 10 mg PO PRN PRN (Reason: Muscle Spasm) gabapentin 100 MG capsule 200 mg PO TID oxycodone 5 mg capsule 5 mg PO Q8H albuterol sulfate 90 mcg/actuation HFA aerosol inhaler 1 - 2 puff INHALATION Q4H PRN PRN (Reason: Wheezing) Qty: 8.5 3RF pantoprazole [Protonix] 40 mg tablet,delayed release (DR/EC) 40 mg PO DAILY Qty: 30 0RF (DME) FreeStyle Lite Strips Strip See Rx Instructions .Route Qty: 100 3RF Rx Instructions: Twice daily (DME) blood-glucose meter [FreeStyle Lite Meter] Kit See Rx Instructions .Route Qty: 1 0RF Rx Instructions: Test twice daily linaclotide 72 mcg capsule 72 mcg PO DAILY Qty: 90 3RF atorvastatin 40 mg tablet 40 mg PO QHS Qty: 90 3RF Hold Instructions: 10/01/21- Myalgia and sleep issues fluticasone propionate 50 mcg/actuation spray,suspension 1 - 2 spray intranasal BID PRN (Reason: allergies, congestion) Qty: 16 3RF Rx Instructions: administer into each nostril; 2 sprays in each nostril for the first week metformin 500 mg tablet 500 mg PO BID Qty: 180 3RF trazodone 50 mg tablet 50 - 100 mg PO QHS Qty: 90 3RF Primary Care Provider: Marlen Bear Referrals: Marlen Bear MD [Primary Care Provider] - Activity Restrictions/Additional Instructions: Your history and exam indicates you have nervous compression in your low back which is causing increased pain and also the radiation into the left leg. Talk to your specialist about an MRI to further assess this. Continue your normal medications as directed by pain management and return to the ER should you have any further concerns. Disposition Disposition: Home, Self Care Discharge Date/Time: 05/10/23 04:25
[2023-05-10] MEDS: Ondansetron ODT 4 MG Tablet PO (04:09)
[2023-05-10] MEDS: HYDROmorphone 1 MG/ML Syringe 2 MG IM (04:10)
[2023-05-10 04:24] VITALS: BP 166/91; PULSE 73; RESP 15; O2SAT 96
== END 2023-05-10 04:25 | disposition home or self-care (01) ==
PROVIDERS: Emergency Provider Emergency Medicine; PCP Internal Medicine; Visit Provider Emergency Medicine
DX: M54.16 Radiculopathy, lumbar region (principal); E11.9 Type 2 diabetes mellitus without complications; I25.10 Atherosclerotic heart disease of native coronary artery without angina pectoris; I10 Essential (primary) hypertension; E78.00 Pure hypercholesterolemia, unspecified; G89.29 Other chronic pain; Z79.899 Other long term (current) drug therapy
CPT/HCPCS: 96372; 99282

== ENCOUNTER 2023-05-11 17:56 | Emergency (ER) | payer OTHER, SELFPAY ==
[2023-05-11 17:57] VITALS: BP 160/117; PULSE 83; RESP 16; TEMP 36.2; O2SAT 96; BMI 31.7
--- NOTE | 2023-05-11 19:04 | CT_ITS ---
STUDY: CT LUMBAR SPINE WITHOUT CONTRAST REASON FOR EXAM: Male, 68 years old. back pain RADIATION DOSAGE (If Supplied By Facility): CTDIvol = ( 22.11 ) mGy, DLP = ( 626.02 ) mGycm TECHNIQUE: The patient was scanned in a multi detector CT scanner. High resolution transaxial imaging was performed. Images were obtained from T11-T12 to S4. Sagittal and coronal images were reconstructed. Individualized dose optimization techniques were used for this CT. COMPARISON: None FINDINGS: There is reversal of the normal lumbar lordosis. There is scoliosis of the lumbar spine with convexity to the left. Normal alignment of the lumbar vertebral bodies. The patient is status post laminectomy at L3 and L4. Otherwise normal vertebrae of the lumbar spine. There is no demonstrated compression deformity or fracture of the visualized lumbar vertebrae. Multilevel endplate spondylosis with narrowing of disc height, more severe from L2 through L4 with vacuum phenomenon at these levels. L1-2: Spondylosis with degenerative disease. Mild diffuse posterior disc bulge. Mild hypertrophy of bilateral facets. No spinal stenosis. No neural foraminal encroachment. L2-3: Endplate spondylosis with vacuum phenomenon. Diffuse posterior disc bulge. Status post posterior laminectomy. No spinal stenosis. Moderate right-sided neural foraminal encroachment. L3-4: Endplate spondylosis with vacuum phenomenon and narrowing of disc height. Posterior osteophytosis. Status post laminectomy. Moderate right-sided neural foraminal encroachment. L4-5: Endplate spondylosis with narrowing of disc height and vacuum phenomenon. Broad-based central disc protrusion/herniation. No severe spinal stenosis. Hypertrophy of ligamentum flavum and facet complex. L5-S1: Normal endplates. Normal disc height and morphology. Normal bilateral facet joints. Normal central canal and bilateral lateral recesses. Normal bilateral intervertebral neural foramina. Normal visualized paraspinous soft tissue structures. CT/Spine Lumbar without Contrast IMPRESSION: Status post laminectomy from L2-L3 to L4-L5. Focal central disc protrusion/herniation at L4-L5. No severe spinal stenosis seen. Moderate right-sided neural foraminal encroachment from L3-L4 to L4-L5. Electronically Signed: Lola Ozuna MD at 20:19 EDT ,
[2023-05-11] MEDS: 0.9% Normal Saline (1000mL) 1,000 ML 999 ML IV (19:19)
[2023-05-11] MEDS: HYDROmorphone 1 MG/ML Syringe IV ×2 (19:20→22:01)
[2023-05-11] MEDS: MethylPREDNISolone 125 MG/2 ML Vial IV (19:20)
[2023-05-11 19:40] LABS: Bacteria 0 SEEN /hpf (None Seen); Mucous, Urine 0 SEEN /hpf (<or=2+); Red Blood Cells-Urine 0 SEEN /hpf (0-5); Squamous Epithelial Cells - UA 0 SEEN /hpf (0-5); White Blood Cells 0 SEEN /hpf (0-5)
[2023-05-11 19:43] LABS: Absolute Lymphocyte Count 2.23 X10^3/uL (0.83-4.51); Absolute Neutrophil Count 5.6 X10^3/uL (2.0-7.7); Basophil# 0.07 X10^3/uL; Basophil% 0.8 % (0-1); Eosinophil# 0.18 X10^3/uL; Hematocrit 46.8 % (40-54); Hemoglobin 15.3 g/dL (13.0-16.5); Lymphocyte # 2.23 X10^3/ul (0.83-4.51); Lymphocyte % 24.6 % (19-41); Mean Corp Hgb Conc 32.7 g/dL (32-36); Mean Corpuscular Hgb 28.9 pg (27.0-32.0); Mean Corpuscular Volume 88.5 fL (80-94); Mean Platelet Vol. 8.6 fl (6.2-12.0); Monocyte# 0.94 X10^3/uL; Monocyte% 10.4 % (0-10); NRBC Flagged by Analyzer 0 % (0-5); Neutrophil # 5.62 X10^3/uL (2.7-7.7); Neutrophil % 61.9 % (47-70); Platelet Count 286 K/mm3 (150-450); RBC Distribution Width CV 12.4 % (11.6-14.6); RBC Distribution Width SD 40.3 fl (35.1-43.9); Red Blood Count 5.29 M/mm3 (4.6-6.2); White Blood Count 9.1 K/mm3 (4.4-11.0)
[2023-05-11 19:45] LABS: Color, Urine Yellow (Yellow); Glucose, Dipstick Normal (Normal); Ketone-Dipstick Negative (Negative); Leukocyte Esterase-Dipstick Negative /ul (Negative); Nitrite-Dipstick Negative (Negative); Occult Blood-Urine Negative /ul (Negative); Protein-Dipstick Negative (Negative); Specific Gravity, Urine 1.005 (1.002-1.030); Urine Bilirubin Dipstick Negative (Negative); Urine Clarity Sl. Cloudy (Clear); Urine Urobilinogen Normal (Normal)
[2023-05-11 19:59] LABS: Anion Gap 3 (5-15); BUN 20 mg/dL (7-18); BUN/Creat Ratio 17.7 RATIO (10-20); Calcium,Total 9.2 mg/dL (8.5-10.1); Chloride 101 mmol/L (98-107); Creatinine, Serum 1.13 mg/dL (0.70-1.30); EST Glomerular Filtration Rate 68 mL/min (>60); Est Glom Filt Rate - Afr Amer 83 mL/min (>60); Estimated Creatinine Clearance 62.81 ml/min; Glucose 120 mg/dL (74-106); Potassium 3.8 mmol/L (3.5-5.1); Sodium Level 135 mmol/L (136-145)
[2023-05-11 22:03] VITALS: BP 129/76; PULSE 93; RESP 18; O2SAT 95
--- NOTE | 2023-05-12 00:38 | EDS_ITS ---
HPI History of Present Illness Chief Complaint: Back Narrative Narrative: 68-year-old male with acute on chronic back pain. Patient seen yesterday for similar pain. He was given dose of morphine and he was post a follow-up with pain management because he sees Dr. Diamond. He is also supposed to follow-up with his spinal surgeon who is Dr. Godoy. Patient states he has had no new trauma. No loss of bladder or bowel control. No saddle anesthesia. Patient states he has history of laminectomy in the lumbar spine previously as well as hardware placement in the cervical spine. He is not complaining of neck pain today. Patient states the Williamson and Percocet that he has at home is not helping. Patient has an appointment with Dr. Godoy tomorrow. [facility] Medical History Agent orange exposure Alcohol use Ambulates with cane Arthritis Arthropathy of cervical facet joint Asthma Atherosclerotic heart disease of [place] coronary artery without angina pectoris Back pain Cancer Cardiology follow-up encounter Cervical spondylosis Chewing tobacco nicotine dependence Chondromalacia of both patellae Chondromalacia, left knee Chondromalacia, right knee COVID-19 virus detected (11/19/20) Degeneration of cervical disc without myelopathy Degeneration of intervertebral disc of lumbosacral region Diabetes Dietary restriction Essential (primary) hypertension Fusion of spine, cervical region High cholesterol History of echocardiogram History of IBS History of pain when walking History of steroid therapy History of stress test Hyperlipemia Hypertension Injury of head and neck Left knee DJD Non-smoker Nonrheumatic aortic (valve) stenosis with insufficiency Obesity Opioid dependence Prostate disease Radiculopathy of lumbosacral region Restless legs Right knee DJD Shortness of breath on exertion Smokeless tobacco use Spinal stenosis of lumbosacral region Spondylosis of lumbosacral region without myelopathy or radiculopathy Syncope Tear of medial meniscus of right knee Type 2 diabetes mellitus Wears hearing aid Home Medications aspirin 81 mg tablet,delayed release 81 mg PO DAILY HEART HEALTH 12/23/15 [History Last Taken Unknown] multivitamin 1 tab PO DAILY 07/09/19 [History Last Taken Unknown] baclofen 10 mg tablet 10 mg PO PRN PRN Muscle Spasm 05/14/20 [History Last Taken Unknown] gabapentin 100 mg capsule 200 mg PO TID 05/14/20 [History Last Taken 03/01/22 07:00] ketoconazole 2 % shampoo 1 applic topical DIRECTED PRN SCALP 10/01/21 [History Last Taken Unknown] naproxen sodium 220 mg capsule (Aleve) 220 mg PO BID PRN Pain 02/04/22 [History Last Taken Unknown] albuterol sulfate 90 mcg/actuation aerosol inhaler 1 - 2 puff inhalation Q4H PRN PRN Wheezing #8.5 grams 04/21/22 [Rx Last Taken Unknown] handicap placard #1 ea 04/21/22 [Rx Last Taken Unknown] pantoprazole 40 mg tablet,delayed release (Protonix) 40 mg PO DAILY #30 tabs 09/14/22 [Rx Last Taken Unknown] blood sugar diagnostic (FreeStyle Lite Strips) #100 ea 09/15/22 [Rx Last Taken Unknown] blood-glucose meter (FreeStyle Lite Meter kit) #1 ea 09/15/22 [Rx Last Taken Unknown] linaclotide 72 mcg capsule 72 mcg PO DAILY IBS #90 caps 02/06/23 [Rx Last Taken Unknown] atorvastatin 40 mg tablet 40 mg PO QHS CHOLESTEROL #90 tabs 04/27/23 [Rx Last Taken Unknown] fluticasone propionate 50 mcg/actuation nasal spray,suspension 1 - 2 spray intranasal BID PRN allergies, congestion #16 grams 04/27/23 [Rx Last Taken Unknown] metformin 500 mg tablet 500 mg PO BID DIABETES #180 tabs 04/27/23 [Rx Last Taken Unknown] trazodone 50 mg tablet 50 - 100 mg (1 - 2 x 50 mg) PO QHS sleep #90 tabs 04/27/23 [Rx Last Taken Unknown] oxycodone 5 mg capsule 5 mg PO Q8H 05/10/23 [History Last Taken Unknown] lidocaine 5 % topical patch 2 patch topical DAILY #15 ea 05/11/23 [Rx Last Taken Unknown] Allergy/AdvReac Type Severity Reaction Status Date / Time adhesive tape Allergy Rash Verified 05/11/23 18:02 Iodinated Contrast Media AdvReac Mild unknown Verified 05/11/23 18:02 sertraline [From Zoloft] AdvReac Unknown Verified 05/11/23 18:02 Family History Brother Heart disease Myocardial infarction 60's CAD (coronary artery disease) Father Myocardial infarction 65 CAD (coronary artery disease) Surgical History H/O cervical spine surgery (08/2020) H/O coronary artery bypass surgery (09/14/11) History of back surgery History of carpal tunnel release History of herniorrhaphy History of lateral meniscus repair of right knee (~2021) History of left heart catheterization (09/09/11) Hx laparoscopic cholecystectomy (~11/2022) Hx of bilateral cataract extraction Social History Smoking Status: Never smoker alcohol intake: current alcohol intake frequency: a few times a month substance use type: does not use caffeine: Yes Type: coffee Number of servings: 2 ROS ROS ED Constitutional Constitutional ED: Denies chills, fever(s) or sweats Eyes Eyes: Denies blurry vision or change in vision ENT ENT ED: Denies ear pain or sore throat Cardiovascular Cardiovascular: Denies chest pain, palpitations or racing heartbeat Respiratory/Chest Respiratory/Chest: Denies cough, dyspnea or sputum Gastrointestinal Gastrointestinal: Denies abdominal pain, constipation, diarrhea, nausea or vomiting Genitourinary Genitourinary ED: Denies dysuria, hematuria or urinary frequency Musculoskeletal Musculoskeletal: Reports back pain; Denies arthralgias or myalgias Integumentary Denies abscess, Abrasions or rash Neurologic Neurologic: Denies headache(s), paresthesias or weakness Psychiatric Psychiatric: Denies anxiety, depression, suicidal ideation or suicidal thoughts Endocrine Endocrinology: Denies polydipsia or polyuria EXAM Physical Exam Const Vital Signs: 05/11/23 17:57 05/11/23 22:03 Temperature 97.1 F L Temperature Source Oral Pulse Rate 83 93 Respiratory Rate 16 18 Blood Pressure 160/117 H 129/76 H Blood Pressure Mean 131 Pulse Ox 96 95 Oxygen Delivery Method Room Air Positive well nourished General Appearance ED: NAD HEENT Reports moist mucous membranes Eyes PERRL and EOMs intact bilaterally Neck no lymphadenopathy Resp normal respiratory effort Cardio regular rate and regular rhythm GI normal to inspection, nondistended, normoactive bowel sounds Back/Spine Back/Spine Narrative: Left lumbar paraspinal musculature tenderness. No midline deformity or step- off. Extremity normal to inspection Neuro oriented x3 and no sensory deficits noted Sensorium / Orientation: alert Psych mental status grossly normal Skin no rashes or lesions noted MDM MDM MDM Narrative Medical decision making narrative: Patient with acute on chronic exacerbation of back pain. He has not any history of kidney stones. He states the pain is worse today. He has Percocet and Williamson at home which is not helping. He has not followed up with Dr. Diamond yet. He has an appointment for Dr. Godoy tomorrow. He was medicated with Dilaudid. CBC and BMP were obtained which are essentially unremarkable. Urinalysis negative for infection or occult blood. CT of the abdomen pelvis without contrast shows show disc herniation at L4-L5 as well as some other degenerative changes. Patient feeling improved with Dilaudid. He is given additional dose. I counseled him that if he has appoint with Dr. Godoy tomorrow he should keep the appointment he should continue to take his pain medications as prescribed. I do not believe he needs to be admitted. Do not believe needs more blood work or imaging. Minimal to this plan. Discharged stable condition. Impression: 1. Acute on chronic back pain 2. L4-L5 disc hernia Lab Data Attestation: I reviewed the patient's lab results. Labs: Laboratory Results - last 24 hr 05/11/23 19:30 WBC 9.1 RBC 5.29 Hgb 15.3 Hct 46.8 MCV 88.5 MCH 28.9 MCHC 32.7 RDW Std Deviation 40.3 RDW Coeff of Frankie 12.4 Plt Count 286 MPV 8.6 Immature Gran % (Auto) 0.300 Neut % (Auto) 61.9 Lymph % (Auto) 24.6 [place] % (Auto) 10.4 H Eos % (Auto) 2.0 Baso % (Auto) 0.8 Absolute Neuts (auto) 5.6 Absolute Lymphs (auto) 2.23 Nucleated RBC % 0 Sodium 135 L Potassium 3.8 Chloride 101 Carbon Dioxide 31.0 Anion Gap 3 L BUN 20 H Creatinine 1.13 Estim Creat Clear Calc 62.81 Est GFR (MDRD) Af Amer 83 Est GFR (MDRD) Non-Af 68 BUN/Creatinine Ratio 17.7 Glucose 120 H Calcium 9.2 Urine Color Yellow Urine Clarity Sl. Cloudy Urine pH 6.0 Ur Specific [place] 1.005 Urine Protein Negative Urine Glucose (UA) Normal Urine Ketones Negative Urine Occult Blood Negative Urine Nitrite Negative Urine Bilirubin Negative Urine Urobilinogen Normal Ur Leukocyte Esterase Negative Urine RBC 0 SEEN Urine WBC 0 SEEN Ur Squamous Epith Cells 0 SEEN Urine Bacteria 0 SEEN Urine Mucus 0 SEEN Radiography Diagnostic Testing: Clinical Impression(s) from Imaging Studies Lumbar Spine CT 05/11/23 19:04 IMPRESSION: Status post laminectomy from L2-L3 to L4-L5. Focal central disc protrusion/herniation at L4-L5. No severe spinal stenosis seen. Moderate right-sided neural foraminal encroachment from L3-L4 to L4-L5. Electronically Signed: Lola Ozuna MD at 20:19 EDT , Discharge Plan Triage Chief Complaint: Back ED Provider: Ryan Vásquez Dx/Rx/DC Orders Instructions: ED Herniated Intervertebral Disk Prescriptions: No Action multivitamin Tablet 1 tab PO DAILY ketoconazole 2 % shampoo 1 applic TOPICAL DIRECTED PRN (Reason: SCALP) Patient Comments: LATHER SCALP AND FACE. LET SIT FOR FIVE MINUTES THEN RINSE (DME) handicap placard See Rx Instructions .Route .MEDSUPPLY Qty: 1 0RF Rx Instructions: fatique , pain in right knee , oteoarathritis naproxen sodium [Aleve] 220 mg capsule 220 mg PO BID PRN (Reason: Pain) lidocaine 5 % adhesive patch,medicated 2 patch topical DAILY Qty: 15 0RF Rx Instructions: leave on most painful area for up to 12 hrs aspirin 81 MG tablet,delayed release (DR/EC) 81 mg PO DAILY baclofen 10 MG tablet 10 mg PO PRN PRN (Reason: Muscle Spasm) gabapentin 100 MG capsule 200 mg PO TID oxycodone 5 mg capsule 5 mg PO Q8H albuterol sulfate 90 mcg/actuation HFA aerosol inhaler 1 - 2 puff INHALATION Q4H PRN PRN (Reason: Wheezing) Qty: 8.5 3RF pantoprazole [Protonix] 40 mg tablet,delayed release (DR/EC) 40 mg PO DAILY Qty: 30 0RF (DME) FreeStyle Lite Strips Strip See Rx Instructions .Route Qty: 100 3RF Rx Instructions: Twice daily (DME) blood-glucose meter [FreeStyle Lite Meter] Kit See Rx Instructions .Route Qty: 1 0RF Rx Instructions: Test twice daily linaclotide 72 mcg capsule 72 mcg PO DAILY Qty: 90 3RF atorvastatin 40 mg tablet 40 mg PO QHS Qty: 90 3RF Hold Instructions: 10/01/21- Myalgia and sleep issues fluticasone propionate 50 mcg/actuation spray,suspension 1 - 2 spray intranasal BID PRN (Reason: allergies, congestion) Qty: 16 3RF Rx Instructions: administer into each nostril; 2 sprays in each nostril for the first week metformin 500 mg tablet 500 mg PO BID Qty: 180 3RF trazodone 50 mg tablet 50 - 100 mg PO QHS Qty: 90 3RF Primary Care Provider: Marlen Bear Referrals: Marlen Bear MD [Primary Care Provider] - Ventura Godoy DO [Med Staff - Active Staff] - 1 Day Disposition Disposition: Home, Self Care Discharge Date/Time: 05/11/23 22:21
== END 2023-05-11 22:21 | disposition home or self-care (01) ==
PROVIDERS: Emergency Provider Student in an Organized Health Care Education/Training Program; PCP Internal Medicine; Visit Provider Student in an Organized Health Care Education/Training Program
DX: M51.26 Other intervertebral disc displacement, lumbar region (principal); E11.9 Type 2 diabetes mellitus without complications; I25.10 Atherosclerotic heart disease of native coronary artery without angina pectoris; E78.00 Pure hypercholesterolemia, unspecified; I10 Essential (primary) hypertension; G89.29 Other chronic pain
CPT/HCPCS: 72131; 80048; 81001; 85025; 96361; 96374; 96375; 96376; 99284; J7030; A4216

== ENCOUNTER 2023-05-19 18:03 | Outpatient (CLI) | payer MEDICARE, SELFPAY ==
[2023-05-15] VITALS (8 sets, daily range): BP systolic 114–158; BP diastolic 71–99; PULSE 65–75; RESP 12–18; TEMP 36.4–36.9; O2SAT 92–99; BMI 31.1
--- NOTE | 2023-05-15 10:40 | RAD_ITS ---
PROCEDURE: Caudal epidural steroid injection. DATE OF EXAMINATION: May 15, 2023. INDICATION: Male, 68 years old. Chronic low back pain. FLUOROSCOPY TIME (if supplied): (9 seconds) minutes/seconds. 6.33 mGy. One spot image was obtained. RAD/Fluor Guidance for Spine Inj IMPRESSION: Intraoperative imaging provided for caudal epidural steroid injection. Electronically Signed: Jaspreet Armstrong MD at 14:41 EDT ,
[2023-05-15] MEDS: Lactated Ringers 1,000 ML 15 ML IV (10:55)
[2023-05-15 11:19] LABS: Bedside Glucose 165 mg/dL (74-106)
[2023-05-15] MEDS: MethylPREDNISolone Acetate 80 MG/ML Vial (11:46)
[2023-05-15] MEDS: Lidocaine 1% (5 ml sdv) 5 ML Vial (11:46)
[2023-05-15] MEDS: 0.9% Normal Saline (Pres. free 10 ML Vial (11:46)
--- NOTE | 2023-05-15 11:50 | OP.PCM_ITS ---
Report of Operation Date of Procedure: 05/15/23 Pre-Operative Diagnosis: Lumbosacral radiculopathy, lumbosacral degenerative di sc disease, lumbosacral spinal stenosis Post-Operative Diagnosis: Lumbosacral radiculopathy, lumbosacral degenerative disc disease, lumbosacral spinal stenosis Surgery/Procedure Performed:: Diagnostic/therapeutic caudal epidural steroid injection under fluoroscopic guidance Type of Anesthesia: MAC Estimated Blood Loss (mL): Minimal Description of Procedure: DESCRIPTION OF PROCEDURE: History and physical of today was reviewed. Risks and benefits of the procedure were explained. The patient understood and agreed to proceed. Informed consent was obtained. IV inserted per routine protocol. The patient was taken to the operating room and placed in the prone position with a pillow positioned underneath the abdomen. The lower back and tailbone area was prepped and draped in a sterile fashion using iodine x3. Under fluoroscopy guidance on a lateral view, the caudal space was identified. The skin and subcutaneous tissue was anesthetized with approximately 3 mL of 1% lidocaine using a 25-gauge regular needle. Under direct visualization with fluoroscopy, using a 22-gauge 3-1/2-inch spinal needle, the needle was advanced via the skin through the sacral hiatus. The tip of the needle was passed through the sacrococcygeal ligament and advanced to approximately S4 area. After negative aspiration of blood or CSF, a total of 3 mL of contrast was injected to confirm correct placement of the needle as well as cephalad spread. The spread was followed to approximately L5 area. After confirmation on AP as well as lateral view and repeated negative aspiration, a total of 15 mL of preservative-free 0.125% Marcaine with 80 mg of Depo-Medrol was injected easily. The needle was then removed intact. The patient experienced no sign or symptoms of intrathecal or intravascular injection. The patient experienced no paresthesia. The procedure was completed without any apparent difficulty or any complications. The patient appeared to tolerate it well. ASSESSMENT AND PLAN: This is a 68-year-old male with lumbosacral radiculopathy, lumbosacral degenerative disc disease, lumbosacral spinal stenosis status post diagnostic/therapeutic caudal epidural steroid injection, patient will continue his current medications, patient will follow in approximately 2 weeks for reevaluation. Complications None
[2023-05-19 18:05] LABS: Bacteria 0 SEEN /hpf (None Seen); Mucous, Urine 0 SEEN /hpf (<or=2+); Red Blood Cells-Urine 0 SEEN /hpf (0-5); Squamous Epithelial Cells - UA 0 SEEN /hpf (0-5); White Blood Cells 0 SEEN /hpf (0-5)
[2023-05-19 18:32] LABS: Color, Urine Yellow (Yellow); Glucose, Dipstick Normal (Normal); Ketone-Dipstick 5 mg/dl (Negative); Leukocyte Esterase-Dipstick Negative /ul (Negative); Nitrite-Dipstick Negative (Negative); Occult Blood-Urine Negative /ul (Negative); Protein-Dipstick Negative (Negative); Urine Bilirubin Dipstick Negative (Negative); Urine Clarity Clear (Clear); Urine Urobilinogen Normal (Normal)
== END 2023-05-19 23:59 | disposition home or self-care (01) ==
LOC: LABSPEC 18:04
PROVIDERS: Anesthesiology Pain Medicine; PCP Internal Medicine; Visit Provider Physician Assistant Surgical
PROC: 3E0S3BZ Introduction of Anesthetic Agent into Epidural Space, Percutaneous Approach (ICD-10-PCS; CPT 62282; principal; 2023-05-15 11:35)
DX: M51.17 Intervertebral disc disorders with radiculopathy, lumbosacral region (principal); F11.20 Opioid dependence, uncomplicated; E11.9 Type 2 diabetes mellitus without complications; M48.07 Spinal stenosis, lumbosacral region; Z79.84 Long term (current) use of oral hypoglycemic drugs; Z79.899 Other long term (current) drug therapy; Z79.82 Long term (current) use of aspirin; Z86.16 Personal history of COVID-19; I25.10 Atherosclerotic heart disease of native coronary artery without angina pectoris; E78.5 Hyperlipidemia, unspecified; J45.909 Unspecified asthma, uncomplicated; I10 Essential (primary) hypertension; N40.0 Benign prostatic hyperplasia without lower urinary tract symptoms
CPT/HCPCS: 64483; 77003; 81001; 82962; 87086; J7120; J3490

== ENCOUNTER → 2023-05-27 | Outpatient (CLI) | payer MEDICARE, SELFPAY ==
--- NOTE | 2023-05-27 09:32 | MRI_ITS ---
STUDY: MRI LUMBAR SPINE WITH AND WITHOUT CONTRAST REASON FOR EXAM: Male, 68 years old. Pain TECHNIQUE: Standardized fat and water weighted pulse sequences were obtained in the sagittal and axial planes. Clariscan 19ml IV was administered for the contrast portion of the examination. COMPARISON: None FINDINGS: T12-L1: Normal endplates. Normal disc height, hydration and morphology. Normal bilateral facet joints. Normal central canal and bilateral lateral recesses. Normal bilateral intervertebral neural foramina. Normal lumbar lordosis. There is grade 1 retrolisthesis at L2-3. There is a levoscoliosis of the lumbar spine. Normal conus medullaris that terminates at the L1 level. L1-2: Mild spurring to the left. Mild facet spurring. No canal stenosis. Neural foramina are patent. L2-3: Disc space narrowing on the right. Disc bulge and spurring with right paracentral disc protrusion, series 6 image 19/30. Facet spurring. There is laminectomy. No canal stenosis. Right foraminal narrowing. L3-4: Disc space narrowing on the right with endplate change. Disc bulge and spurring with right paracentral disc protrusion, series 6 image 14/30. Facet spurring. Laminectomy. No canal stenosis. Right greater than left foraminal narrowing. L4-5: Disc bulge and spurring and central left paracentral disc protrusion, series 6 image 9/30. Facet spurring. There is laminectomy. Mild canal stenosis. Bilateral foraminal narrowing. L5-S1: Disc bulge. Facet spurring. No canal stenosis. Mild left foraminal narrowing. Normal visualized sacral ala. There is postoperative change in the posterior paraspinal soft tissues. There is no demonstrated abnormal enhancement. MRI/Spine Lumbar W/WO Contrast IMPRESSION: Scoliosis with degenerative and postoperative change, disc herniations, and foraminal narrowing. Electronically Signed: Tonny Rouse MD at 15:06 EDT ,
== END | disposition home or self-care (01) ==
LOC: MRI 09:30
PROVIDERS: PCP Internal Medicine; Referring Provider Orthopaedic Surgery; Visit Provider Orthopaedic Surgery
DX: M54.16 Radiculopathy, lumbar region (principal)
CPT/HCPCS: 72158; A9575

== ENCOUNTER 2023-07-18 10:43 | Inpatient (IN) | payer MEDICARE, SELFPAY ==
[2023-07-05 09:58] LABS: Hemoglobin A1c 6.7 % (3.8-5.6); Magnesium 2.1 mg/dL (1.6-2.6)
[2023-07-05 10:36] LABS: HIV - WCH Non-Reactive (Nonreactive); Hepatitis B Surface Antibody Non-Reactive; Hepatitis C Antibody Non-Reactive (Nonreactive)
[2023-07-06 03:07] LABS: Hepatitis A AB, Total Negative (Negative)
--- NOTE | 2023-07-17 14:13 | HP.PCM_ITS ---
History and Physical [id number] Acct: [id number] Name: JARET FIGUEROA Rep #: [id number] : 1955 Provider: Dr. Ventura Godoy DO Age/Sex: 68/M Location: [facility] [place].[facility] Status: Signed Intake Vital Signs 12/20/2305:28 05/11/2317:57 Height 5 ft 10 in 5 ft 10 in Intake Visit Reasons: CERVICAL SINE Chief Complaint: cervical spine/ low back Is patient in pain?: Yes (low back ) Pain scale (1-10): 5 Allergies adhesive tape Allergy (Verified 05/12/23 08:16) RashIodinated Contrast Media Adverse Reaction (Mild, Verified 05/12/23 08:16) unknownsertraline [From Zoloft] Adverse Reaction (Verified 05/12/23 08:16) Unknown Medications aspirin 81 mg tablet,delayed release 81 mg PO DAILY HEART HEALTH 12/23/15 [History Confirmed 05/12/23] multivitamin 1 tab PO DAILY 07/09/19 [History Confirmed 05/12/23] baclofen 10 mg tablet 10 mg PO PRN PRN Muscle Spasm 05/14/20 [History Confirmed 05/12/23] gabapentin 100 mg capsule 200 mg PO TID 05/14/20 [History Confirmed 05/12/23] ketoconazole 2 % shampoo 1 applic topical DIRECTED PRN SCALP 10/01/21 [History Confirmed 05/12/23] naproxen sodium 220 mg capsule (Aleve) 220 mg PO BID PRN Pain 02/04/22 [History Confirmed 05/12/23] albuterol sulfate 90 mcg/actuation aerosol inhaler 1 - 2 puff inhalation Q4H PRN PRN Wheezing #8.5 grams 04/21/22 [Rx Confirmed 05/12/23] handicap placard #1 ea 04/21/22 [Rx Confirmed 05/12/23] pantoprazole 40 mg tablet,delayed release (Protonix) 40 mg PO DAILY #30 tabs 09/14/22 [Rx Confirmed 05/12/23] blood sugar diagnostic (FreeStyle Lite Strips) #100 ea 09/15/22 [Rx Confirmed 05/12/23] blood-glucose meter (FreeStyle Lite Meter kit) #1 ea 09/15/22 [Rx Confirmed 05/12/23] linaclotide 72 mcg capsule 72 mcg PO DAILY IBS #90 caps 02/06/23 [Rx Confirmed 05/12/23] atorvastatin 40 mg tablet 40 mg PO QHS CHOLESTEROL #90 tabs 04/27/23 [Rx Confirmed 05/12/23] fluticasone propionate 50 mcg/actuation nasal spray,suspension 1 - 2 spray intranasal BID PRN allergies, congestion #16 grams 04/27/23 [Rx Confirmed 05/12/23] metformin 500 mg tablet 500 mg PO BID DIABETES #180 tabs 04/27/23 [Rx Confirmed 05/12/23] trazodone 50 mg tablet 50 - 100 mg (1 - 2 x 50 mg) PO QHS sleep #90 tabs 04/27/23 [Rx Confirmed 05/12/23] oxycodone 5 mg capsule 5 mg PO Q8H 05/10/23 [History Confirmed 05/12/23] lidocaine 5 % topical patch 2 patch topical DAILY #15 ea 05/11/23 [Rx Confirmed 05/12/23] methylprednisolone 4 mg tablets in a dose pack (Medrol (Raphael)) 4 mg PO DAILY 6 days #6 tabs 05/12/23 [Rx Confirmed 05/12/23] PFSH Medical History Agent orange exposure Alcohol use Ambulates with cane Arthritis Arthropathy of cervical facet joint Asthma Atherosclerotic heart disease of [place] coronary artery without angina pectoris Back pain Cancer Cardiology follow-up encounter Cervical spondylosis Chewing tobacco nicotine dependence Chondromalacia of both patellae Chondromalacia, left knee Chondromalacia, right knee COVID-19 virus detected (11/19/20) Degeneration of cervical disc without myelopathy Degeneration of intervertebral disc of lumbosacral region Diabetes Dietary restriction Essential (primary) hypertension Fusion of spine, cervical region High cholesterol History of echocardiogram History of IBS History of pain when walking History of steroid therapy History of stress test Hyperlipemia Hypertension Injury of head and neck Left knee DJD Non-smoker Nonrheumatic aortic (valve) stenosis with insufficiency Obesity Opioid dependence Prostate disease Radiculopathy of lumbosacral region Restless legs Right knee DJD Shortness of breath on exertion Smokeless tobacco use Spinal stenosis of lumbosacral region Spondylosis of lumbosacral region without myelopathy or radiculopathy Syncope Tear of medial meniscus of right knee Type 2 diabetes mellitus Wears hearing aid Surgical History H/O cervical spine surgery (08/2020) H/O coronary artery bypass surgery (09/14/11) History of back surgery History of carpal tunnel release History of herniorrhaphy History of lateral meniscus repair of right knee (~2021) History of left heart catheterization (09/09/11) Hx laparoscopic cholecystectomy (~11/2022) Hx of bilateral cataract extraction Family History Brother Heart disease Myocardial infarction 60's CAD (coronary artery disease)Father Myocardial infarction 65 CAD (coronary artery disease) Social History Smoking Status: Never smoker alcohol intake: current alcohol intake frequency: a few times a month substance use type: does not use caffeine: Yes Type: coffee Number of servings: 2 HPI CERVICAL SINE Chief Complaint: cervical spine Details: Parts of this documentation were recorded by a scribe, this documentation accurately reflects the service provided and the decisions made by me, Dr. Ventura Godoy, DO 05/12/23 0811. JARET FIGUEROA is a 68 year old M here today for cervical spine MRI review. Pt. is also c/o low back pain. He advises he was in the ED last night where a CT scan was done and he was given steroids and pain meds. He states his pain starts in his left low back and radiates down his left leg to his left foot and toes. He comes in with a new problem. Around 2013 or so he had low back surgery per obviously a decompression. Darting about 10 days ago or so he began having pain in his left buttocks and down his left leg and what is described as a possible L5 dermatome. The pain has been terrific he has been seen in the ER. He says that he cannot live like he is. Gave him pain medicine in the emergency room. He states that he does not even touch the pain. Examination he walks bent forward he cannot straighten up because it makes the pain down the leg worse. Decreased patellar reflex on the left as compared to their the right however that could have been old from before the surgery even. Reasonable strength in the most major muscle groups of both lower extremities. He has no long tract signs. He he is due to see Dr. Diamond on Monday for an injection. I told him to keep the appointment. In the meantime I will start him on a Medrol Dosepak today. In addition we will order an MRI scan of the lumbar spine with and without contrast to be done sometime after Dr. Garcia's injection. I would like to visit with him after the MRI scan is done. Coding Level of Care Code Off vis,est,level 3 Diagnoses Acute lumbar radiculopathy M54.16
[2023-07-18] VITALS (11 sets, daily range): BP systolic 111–142; BP diastolic 73–78; PULSE 58–97; RESP 13–20; TEMP 36.1–36.9; O2SAT 92–100; BMI 31.4
[2023-07-18] MEDS: Acetaminophen 500 MG Tablet 1000 MG PO ×3 (06:11→20:43)
[2023-07-18] MEDS: Lactated Ringers 1,000 ML 15 ML IV (06:18)
[2023-07-18] MEDS: Magnesium 1 GM over 15 mins IV (06:18)
[2023-07-18 06:40] LABS: Bedside Glucose 119 mg/dL (74-106)
--- NOTE | 2023-07-18 07:30 | DISC_PTH ---
PATIENT: JARET FIGUEROA LOC: [facility] U#:[id number] AGE/SX: 68/M ROOM: [facility] [place] RE07/18/[address]: Dr. Ventura Godoy DO : 1955 BED: 1 DIS: 07/20/2023 SPEC #: [id number] RECD: 07/18/23 13:09 STATUS: CHYNA RECarlos #: [id number] ZANE: 07/18/23 07:[address]: Vetnura Godoy DEPT: SURGICAL PATHOLOGY RECD BY: Martha Cao ENTERED: 07/18/23 13:29 SP TYPE: DISC OTHR DR: MD Dr. Dimas Mathew MD Tissues: Intervertebral disc, NOS Procedures: Surgery Specimen Level III HEADER OPERATION: ERAS, repeat lumbar laminectomy L4-5 left with dura repair PRE-OP DIAGNOSIS: Herniated nucleus pulposus, L4-L5 left TISSUE SUBMITTED: L4-L5 disc MICROSCOPIC DIAGNOSIS Intervertebral disc, L4-L5, discectomy: Fragments of intervertebral disc with degenerative change. Cartilaginous material with degenerative change. AM:lucita 07/19/2023 MICROSCOPIC DESCRIPTION Slides are reviewed. GROSS DESCRIPTION Received in fixative is one container labeled with the patient's name and designated L4-L5 disc. The specimen consists of multiple irregular fragments of rubbery, pink-meredith soft tissue that in aggregate measure 5.0 x 3.0 x 0.5 cm. The specimen is totally submitted in one cassette. / AM:lucita 07/18/2023 TC:5 CPT: 27657
[2023-07-18] MEDS: Cefazolin 2 GM in 0.9% Normal Saline (100mL Bag) 100 ML IV (08:00)
[2023-07-18] MEDS: THROMBIN (RECOMBINANT) 20,000 UNIT VIAL 20000 UNIT TOPICAL (08:55)
--- NOTE | 2023-07-18 08:55 | RAD_ITS ---
STUDY: X-RAY - LUMBAR SPINE REASON FOR EXAM: Male, 68 years old. LUMBAR LAMINECTOMY TECHNIQUE: Single lateral view(s) of the lumbar spine were obtained. COMPARISON: Comparison is made with prior study of May 12, 2023. FINDINGS: The localization instrument is seen posterior to the L4-L5 disc space level. RAD/Spine 1 View Any Level IMPRESSION: The localization instrument is seen posterior to the L4-L5 disc space level. Electronically Signed: Jaspreet Armstrong MD at 9:20 EST ,
--- NOTE | 2023-07-18 09:25 | RAD_ITS ---
STUDY: X-RAY - LUMBAR SPINE REASON FOR EXAM: Male, 68 years old. ERAS, REPEAT LUMBAR LAMINECTOMY L4-5 LEFT TECHNIQUE: Single lateral view(s) of the lumbar spine were obtained. COMPARISON: None FINDINGS: The localization instrument is seen posterior to the L4-L5 disc space level. RAD/Spine 1 View Any Level IMPRESSION: The localization instrument is seen posterior to the L4-L5 disc space level. Electronically Signed: Jaspreet Armstrong MD at 9:54 EST ,
--- NOTE | 2023-07-18 10:54 | PCM.OPRPT ---
Report of Operation Description of Surgical Findings:: Preoperative diagnosis: Recurrent disc herniation and lateral recess stenosis L4-5 on the left Postoperative diagnosis: Same Procedure: Repeat laminectomy L4-5 on the left with discectomy and decompression of L5 nerve root CPT code 75797 Surgeon: Dr. Godoy Engraver Set Up Operator: Reyna STRONG Anesthesia: General endotracheal by [facility] EBL: Less than 50 cc Drains: None Complications: Dural leak Procedure patient was taken to the OR where he was placed under general endotracheal anesthesia. He was then placed in the prone position on the Juan frame. After appropriate positioning with care to protect his bony prominences his genitalia the ulnar nerves of both elbows and brachial plexus bilaterally the back was prepped draped standard fashion. We did take a preoperative x-ray on him as the old incision from the his original surgery seem to be L5. Once we took a couple of them we were able to identify where we should make our own incision. The back was then prepped and draped standard fashion. I then made the incision at the predetermined point. Subcutaneous tissues were incised length of the skin incision. At first I went down midline pretty much. We had a hard time determining though where the medial side of the open area was. In the process of doing so as I cauterized what appeared to be the pars interarticularis I went over right along the edge and leak was then seen. We Trendelenberg the table. For a while it was it was held with DuraGen. In the meantime I continued releasing the scar off the lateral wall. I increase the size of the lateral the opening using 45 degree Kerrisons. There was a significant bout of ligamentum flavum left by the old surgeon. I slowly started removing the ligamentum flavum off of the dura this was a careful and tedious process but I was able to remove most of the ligamentum flavum that was contributing to the lateral recess stenosis. Once this was done is able to slowly retract the dura medial border exposing the herniated disc then cut into the disc and got copious amounts of disc material out that was probably single subligamentous. This completely decompressed the L5 nerve root. Note that our dural leak held without any more leakage. Checked the nerve root with a hockey stick and was found to be very open going into the foramen. Note that we had a lot of dura exposed. Note also that we thoroughly irrigated with copious amounts of sterile saline every 10 to 15 minutes in the course of the case. We were able to put amniotic membrane directly over the exposed nerve root and the dura on the side. We then were able to place more DuraGen directly over the leak. This held quite well. Because of the leak we decided not to put a drain in. The bleeding was minimal at this point. I then closed the lumbar fascia using [id number] suture with #1 Vicryl. The skin was then approximated using the layers with 2-0 Vicryl and skin was approximated using skin clips sterile dressings were then applied. The patient was then recovered in the OR he was moved to his hospital bed and taken to recovery in satisfactory condition. This the end of operative summary on Abdirizak Bates. This is Dr. Godoy dictating.
[2023-07-18 11:35] LABS: Bedside Glucose 155 mg/dL (74-106)
[2023-07-18] MEDS: Lactated Ringers 1,000 ML 100 ML IV (12:44)
--- NOTE | 2023-07-18 13:28 | PCM.PN.HOSP ---
Subjective Subjective 68-year-old male presents to the hospital for an elective discectomy and decompression of his L5 nerve root due to recurrent disc herniation. Doing well postoperatively, he does have a cardiac history as well as diabetes but otherwise the majority of his medications appear to be dealing with his back pain issues. His operative case was complicated by a dural leak that was treated intraoperatively Objective Data Objective Data Vital Signs: Vital Signs Temp Pulse Resp BP Pulse Ox O2 Del Method O2 Flow Rate 97.6 F L 58 L 18 133/76 H 98 Nasal Cannula 4 07/18/23 12:22 07/18/23 12:22 07/18/23 12:22 07/18/23 12:22 07/18/23 12:22 07/18/23 12:07/18/23 12:22 Oxygen Flow Rate (L/min) 4 Oxygen Delivery Method Nasal Cannula Weight: 219 lb 0.009 oz Body Mass Index (BMI) 31.4 Intake & Output: Intake and Output for Last 24 Hours 07/17/23 07/18/23 07/19/23 03:59 03:59 03:59 Intake Total 1311.25 / 1311.25 Output Total 800 / 800 Balance 511.25 / 511.25 Lab / Micro Data Labs: Laboratory Results - last 24 hr 07/18/23 05:51: POC Glucose 119 H 07/18/23 11:17: POC Glucose 155 H Micro: Microbiology 07/05/23 08:30 Swab (Method) Nasal Screen MRSA/MSSA - Final Radiography Diagnostic Testing: Radiology Impression Spine X-Ray 07/18/23 08:55 IMPRESSION: The localization instrument is seen posterior to the L4-L5 disc space level. Electronically Signed: Jaspreet Armstrong MD at 9:20 EST , Spine X-Ray 07/18/23 09:25 IMPRESSION: The localization instrument is seen posterior to the L4-L5 disc space level. Electronically Signed: Jaspreet Armstrong MD at 9:54 EST , Physical Exam Narrative General: Alert, Oriented x3, Cooperative, No apparent distress HEENT: Atraumatic, PERRLA, EOMI, Normocephalic Oral: Moist Mucosa Neck: Supple, No JVD Lungs: Diminished, Normal air movement, No rhonchi, No wheeze, No rales Cardiovascular: Regular rate, Regular Rhythm, Normal S1, Normal S2, No murmurs Abdomen: Soft, Non Tender, Non-Distended, No Hepato-splenomegaly Extremities: No edema, Capillary Refill Less than 3 Seconds Skin: Dressing CDI Musculoskeletal: No Tenderness to Palpation of Joints or Extremities Neurological: Cranial nerves II-XII grossly intact, Motor Exam 5/5 strength throughout, Sensory exam intact to light touch and pain Psych/Mental Status: Normal Affect, Appropriate Assessment & Plan Assessment/Plan (1) Herniated nucleus pulposus, L4-5 left: (2) Status post discectomy for herniated nucleus pulposus: PLAN: Plan 1. Status post L4-5 laminectomy and discectomy for recurrent disc herniation and stenosis on 07/18/2023 ? Pain management from primary ? PT/OT ? Because of his dural leak he is currently not to get out of bed 2. CAD status post CABG/HTN/HLD ? Blood pressures are stable ? Can resume his home blood pressure medications ? We will monitor make adjustments as necessary 3. DM2 ? Continue with metformin ? Accu-Cheks ACHS ? Sign scale insulin ? We will monitor make adjustments as necessary 4. GERD ? Stable ? Continue with PPI DVT: SCDs Charges/Coding Visit Charges Inpatient E&M: 46655 Subs Hosp L2
[2023-07-18] MEDS: Gabapentin 100 MG Capsule 200 MG PO ×2 (14:31→20:43)
[2023-07-18] MEDS: oxyCODONE 5 MG Tablet PO (16:43)
[2023-07-18] MEDS: metFORMIN HCl 500 MG Tablet PO (16:43)
[2023-07-18] MEDS: Cefazolin 1 GM/50 ML BAG IV (16:47)
[2023-07-18] MEDS: Insulin Lispro 100 UNIT/ML INSULN.PEN SC ×2 (16:47→20:48)
[2023-07-18 17:58] LABS: Bedside Glucose 205 mg/dL (74-106)
[2023-07-18] MEDS: diazePAM 5 MG Tablet PO (20:43)
[2023-07-18] MEDS: Atorvastatin Calcium 40 MG Tablet PO (20:43)
[2023-07-18 22:57] LABS: Bedside Glucose 192 mg/dL (74-106)
[2023-07-19] VITALS (8 sets, daily range): BP systolic 119–151; BP diastolic 66–81; PULSE 69–95; RESP 16–18; TEMP 36.6–37.1; O2SAT 94–98
[2023-07-19] MEDS: Cefazolin 1 GM/50 ML BAG IV (00:01)
[2023-07-19] MEDS: Lactated Ringers 1,000 ML 100 ML IV (00:01)
[2023-07-19] MEDS: oxyCODONE 5 MG Tablet PO ×3 (00:05→14:39)
[2023-07-19] MEDS: Gabapentin 100 MG Capsule 200 MG PO ×3 (05:54→20:17)
[2023-07-19] MEDS: Acetaminophen 500 MG Tablet 1000 MG PO ×3 (05:54→20:18)
[2023-07-19] MEDS: Insulin Lispro 100 UNIT/ML INSULN.PEN SC ×2 (05:55→12:41)
[2023-07-19 06:39] LABS: Bedside Glucose 194 mg/dL (74-106)
[2023-07-19 09:03] LABS: Absolute Lymphocyte Count 1.51 X10^3/uL (0.83-4.51); Absolute Neutrophil Count 8.6 X10^3/uL (2.0-7.7); Basophil# 0.02 X10^3/uL; Basophil% 0.2 % (0-1); Eosinophil# 0.01 X10^3/uL; Eosinophils% 0.1 % (0-5); Hematocrit 38.7 % (40-54); Hemoglobin 12.7 g/dL (13.0-16.5); Lymphocyte # 1.51 X10^3/ul (0.83-4.51); Lymphocyte % 13.6 % (19-41); Mean Corp Hgb Conc 32.8 g/dL (32-36); Mean Corpuscular Hgb 29.4 pg (27.0-32.0); Mean Corpuscular Volume 89.6 fL (80-94); Mean Platelet Vol. 8.8 fl (6.2-12.0); Monocyte# 0.88 X10^3/uL; Monocyte% 7.9 % (0-10); NRBC Flagged by Analyzer 0 % (0-5); Neutrophil # 8.62 X10^3/uL (2.7-7.7); Neutrophil % 77.7 % (47-70); Platelet Count 237 K/mm3 (150-450); RBC Distribution Width CV 13.2 % (11.6-14.6); Red Blood Count 4.32 M/mm3 (4.6-6.2); White Blood Count 11.1 K/mm3 (4.4-11.0)
[2023-07-19] MEDS: Pantoprazole Sodium 40 MG Tablet PO (09:11)
[2023-07-19] MEDS: LINACLOTIDE 72 MCG CAPSULE PO (09:11)
[2023-07-19] MEDS: diazePAM 5 MG Tablet PO ×2 (09:11→20:18)
[2023-07-19] MEDS: metFORMIN HCl 500 MG Tablet PO ×2 (09:11→18:20)
[2023-07-19 09:28] LABS: Anion Gap 5 (5-15); BUN 20 mg/dL (7-18); BUN/Creat Ratio 21.6 RATIO (10-20); Calcium,Total 8.8 mg/dL (8.5-10.1); Chloride 108 mmol/L (98-107); Creatinine, Serum 0.93 mg/dL (0.70-1.30); EST Glomerular Filtration Rate 86 mL/min (>60); Est Glom Filt Rate - Afr Amer 104 mL/min (>60); Estimated Creatinine Clearance 76.31 ml/min; Glucose 170 mg/dL (74-106); Potassium 3.8 mmol/L (3.5-5.1); Sodium Level 141 mmol/L (136-145)
--- NOTE | 2023-07-19 11:08 | CASEMGMT ---
MATIAS SAUER Assessment: Face to Face with pt for initial transition planning/care coordination assessment. RN CRISTIANE introduced self and role at [facility], pt voices understanding and consents to assessment. Pt is A&O x4 and answers all questions appropriately at this time. Pt lying flat in bed in no distress. Care providers, pharmacy, and demographics verified/updated. Admitting Dx: repeat lumbar laminectomy L4-5 left PCP:Chema Specialists:[facility]; gunnar [facility] Preferred Pharmacy: [facility] Retail Insurance: [employer] [facility] Prescription Benefit: yes LNOK: Alethea Bates, Living Arrangements: Pt lives with in a two story home with [facility] with 2 steps to enter. Pt reports prior to surgery he was I in ADL's. Pt reports is able to assist at home if she needs to. Pt denies concerns at home. Transportation: Pt drives self and denies concerns with transportation. Pt to transport post surgery until he can drive again. DME:cane, walker HHC/SNF: Denies hx of Pt states no concerns with going home at time of dc. Pt states no further concerns/needs. CM to follow. Advised pt to ask CM if any further question/concerns/needs arise, voices understanding. Pt Goal: Home Plan: Home
[2023-07-19 11:24] LABS: Bedside Glucose 160 mg/dL (74-106)
--- NOTE | 2023-07-19 13:08 | PCM.PN.ORT ---
Subjective Subjective Abdirizak is doing well on postop day #1. He is lying flat because of the dural leak. He knows that tomorrow we will get him up tomorrow at noon if he is doing well he can go home. He already reports that his leg pain is gone. He had leg pain even lying down before surgery. Neurologically he is intact in both lower extremities. His dressing is dry. Progress is quite satisfactory. Objective Data Objective Data Vital Signs: Vital Signs Temp Pulse Resp BP Pulse Ox O2 Del Method O2 Flow Rate 97.8 F 83 16 119/67 96 Room Air 4 07/19/23 08:34 07/19/23 09:56 07/19/23 09:56 07/19/23 08:34 07/19/23 09:56 07/19/23 09:56 07/18/23 12:22 Oxygen Flow Rate (L/min) 4 Oxygen Delivery Method Room Air Weight: 219 lb 0.009 oz Body Mass Index (BMI) 31.4 Intake & Output: Intake and Output for Last 24 Hours 07/17/23 07/18/23 07/19/23 23:59 23:59 23:59 Intake Total 2811.25 / 3211.25 2250 / 2250 Output Total 2200 / 3025 1925 / 1925 Balance 611.25 / 186.25 325 / 325 Lab / Micro Data 07/19/23 08:38 07/19/23 08:38 Labs: Laboratory Results - last 24 hr 07/18/23 16:42: POC Glucose 205 H 07/18/23 20:47: POC Glucose 192 H 07/19/23 05:53: POC Glucose 194 H 07/19/23 08:38: WBC 11.1 H, RBC 4.32 L, Hgb 12.7 L, Hct 38.7 L, MCV 89.6, MCH 29.4, MCHC 32.8, RDW Std Deviation 43.0, RDW Coeff of Frankie 13.2, Plt Count 237, MPV 8.8, Immature Gran % (Auto) 0.500, Neut % (Auto) 77.7 H, Lymph % (Auto) 13.6 L, [place] % (Auto) 7.9, Eos % (Auto) 0.1, Baso % (Auto) 0.2, Absolute Neuts (auto) 8.6 H, Absolute Lymphs (auto) 1.51, Nucleated RBC % 0, Sodium 141, Potassium 3.8, Chloride 108 H, Carbon Dioxide 28.0, Anion Gap 5, BUN 20 H, Creatinine 0.93, Estim Creat Clear Calc 76.31, Est GFR (MDRD) Af Amer 104, Est GFR (MDRD) Non-Af 86, BUN/Creatinine Ratio 21.6 H, Glucose 170 H, Calcium 8.8 07/19/23 10:57: POC Glucose 160 H Micro: Microbiology 07/05/23 08:30 Swab (Method) Nasal Screen MRSA/MSSA - Final
[2023-07-19 16:39] LABS: Bedside Glucose 114 mg/dL (74-106)
--- NOTE | 2023-07-19 17:53 | PCM.PN.HOSP ---
Reason for Visit Reason for Visit: Diagnoses Other intervertebral disc displacement, lumbar region (07/18/23) Encounter for other preprocedural examination (07/18/23) Personal history of other diseases of the musculoskeletal system and connective tissue (07/18/23) Other specified postprocedural states (07/18/23) Subjective Subjective Seen and examined today, he denies any fevers or chills. Objective Data Objective Data Vital Signs: Vital Signs Temp Pulse Resp BP Pulse Ox O2 Del Method O2 Flow Rate 97.9 F 80 16 129/69 H 98 Room Air 4 07/19/23 14:30 07/19/23 14:30 07/19/23 14:30 07/19/23 14:30 07/19/23 14:30 07/19/23 14:30 07/18/23 12:22 Oxygen Flow Rate (L/min) 4 Oxygen Delivery Method Room Air Weight: 99.337 kg Body Mass Index (BMI) 31.4 Intake & Output: Intake and Output for Last 24 Hours 07/17/23 07/18/23 07/19/23 23:59 23:59 23:59 Intake Total 2811.25 / 3211.25 2250 / 2250 Output Total 2200 / 3025 4625 / 4625 Balance 611.25 / 186.25 -2375 / -2375 Lab / Micro Data 07/19/23 08:38 07/19/23 08:38 Labs: Laboratory Results - last 24 hr 07/18/23 16:42: POC Glucose 205 H 07/18/23 20:47: POC Glucose 192 H 07/19/23 05:53: POC Glucose 194 H 07/19/23 08:38: WBC 11.1 H, RBC 4.32 L, Hgb 12.7 L, Hct 38.7 L, MCV 89.6, MCH 29.4, MCHC 32.8, RDW Std Deviation 43.0, RDW Coeff of Frankie 13.2, Plt Count 237, MPV 8.8, Immature Gran % (Auto) 0.500, Neut % (Auto) 77.7 H, Lymph % (Auto) 13.6 L, [place] % (Auto) 7.9, Eos % (Auto) 0.1, Baso % (Auto) 0.2, Absolute Neuts (auto) 8.6 H, Absolute Lymphs (auto) 1.51, Nucleated RBC % 0, Sodium 141, Potassium 3.8, Chloride 108 H, Carbon Dioxide 28.0, Anion Gap 5, BUN 20 H, Creatinine 0.93, Estim Creat Clear Calc 76.31, Est GFR (MDRD) Af Amer 104, Est GFR (MDRD) Non-Af 86, BUN/Creatinine Ratio 21.6 H, Glucose 170 H, Calcium 8.8 07/19/23 10:57: POC Glucose 160 H 07/19/23 16:21: POC Glucose 114 H Micro: Microbiology 07/05/23 08:30 Swab (Method) Nasal Screen MRSA/MSSA - Final Physical Exam Const alert, oriented x3, no apparent distress, average body habitus and healthy appearing General Appearance: cooperative, well kempt and well developed Orientation / Consciousness: awake, oriented to person, oriented to place and oriented to time HEENT normocephalic, head/scalp atraumatic and moist oral mucous membranes Eyes PERRL, EOMs intact bilaterally and conjunctivae normal Neck supple, no JVD, thyroid normal and no carotid bruits General: trachea midline Resp normal respiratory effort and clear to auscultation bilaterally Auscultation: Negative for rales, rhonchi or wheezes Cardio regular rate, regular rhythm, no murmurs, no rub and no gallops GI normal to inspection, nondistended, normoactive bowel sounds, soft to palpation, non-tender and non-distended Extremity no clubbing, cyanosis or edema Skin no rashes or lesions noted Neuro oriented x3, CN's II-XII intact bilaterally, moves all extremities, no focal motor deficits and no sensory deficits noted Sensorium / Orientation: awake and alert Speech: speech normal Psych affect normal Assessment & Plan Assessment/Plan (1) High cholesterol: PLAN: Plan 1. Hyperlipidemia-patient is on atorvastatin #2 type 2 diabetes-patient is on sliding scale insulin per fingerstick blood sugars #3 GERD-patient is on a PPI #4 disc herniation L4-5 on the left-status post laminectomy L4-5 on the left with discectomy and decompression of L5 nerve root-spinal surgery is participating in his care Total clinical time spent by myself addressing the patient's medical issues, reviewing all of his data, and collaborating with the patient's care team: 25 minutes Charges/Coding Visit Charges Inpatient E&M: 21280 Subs Hosp L1
[2023-07-19] MEDS: 0.9% Saline Lock 10 ML Syringe IV ×2 (18:24→21:47)
[2023-07-19] MEDS: Morphine 2 MG/ML Syringe IV ×2 (18:24→21:46)
[2023-07-19] MEDS: Atorvastatin Calcium 40 MG Tablet PO (20:17)
[2023-07-19] MEDS: Ondansetron 4 MG/2 ML Vial IV (21:46)
[2023-07-19 22:59] LABS: Bedside Glucose 127 mg/dL (74-106)
[2023-07-20] MEDS: oxyCODONE 5 MG Tablet PO ×2 (02:50→14:02)
[2023-07-20 02:54] VITALS: BP 153/77; PULSE 79; RESP 16; TEMP 36.9; O2SAT 92
[2023-07-20] MEDS: Acetaminophen 500 MG Tablet 1000 MG PO ×2 (06:23→14:01)
[2023-07-20] MEDS: Gabapentin 100 MG Capsule 200 MG PO ×2 (06:23→14:01)
[2023-07-20] MEDS: Morphine 4 MG/ML Syringe IV (06:23)
[2023-07-20] MEDS: Ondansetron 4 MG/2 ML Vial IV (06:24)
[2023-07-20] MEDS: 0.9% Saline Lock 10 ML Syringe IV (06:24)
[2023-07-20 06:58] LABS: Bedside Glucose 99 mg/dL (74-106)
[2023-07-20 09:00] VITALS: RESP 18
[2023-07-20] MEDS: Pantoprazole Sodium 40 MG Tablet PO (09:49)
[2023-07-20] MEDS: LINACLOTIDE 72 MCG CAPSULE PO (09:49)
[2023-07-20] MEDS: metFORMIN HCl 500 MG Tablet PO (09:49)
[2023-07-20 09:53] VITALS: BP 146/87; PULSE 75; RESP 16; TEMP 37; O2SAT 95
--- NOTE | 2023-07-20 09:57 | CASEMGMT ---
Social Work SW met with pt to discuss advance directives.? Pt confirms he has completed a living will and health care POA naming his Alethea Bates.? Pt notified that documents are not on file at [facility] and SW requested they be brought in for scanning into the EMR.? AMANDO Caldwell
[2023-07-20 13:22] VITALS: BP 134/88; PULSE 79; RESP 18; TEMP 36.7; O2SAT 94
[2023-07-20 14:00] LABS: Bedside Glucose 129 mg/dL (74-106)
--- NOTE | 2023-07-20 14:08 | DCINST_ITS ---
Discharge Instructions Activity May shower in (days): 5 May resume sexual activity in: 4-6 weeks Lifting Restrictions: 15# Dressing / Incision Remove Dressing in: 4 days Follow Up Care Test Results: Test results from this visit will be discussed in further detail at your follow- up appointment, if applicable. Discharge Plan Admission Admit Date/Time: 07/18/23 10:43 Primary Reason for Your Visit: dolores surgery Attending Provider: Ventura Godoy Primary Care Provider: Marlen Bear Consulting Providers: Dimas Clinton Mark Discharge Orders/Prescriptions Prescriptions: No Action multivitamin Tablet 1 tab PO DAILY (DME) handicap placard See Rx Instructions .Route .MEDSUPPLY Qty: 1 0RF Rx Instructions: fatique , pain in right knee , oteoarathritis naproxen sodium [Aleve] 220 mg capsule 220 mg PO BID PRN (Reason: Pain) aspirin 81 MG tablet,delayed release (DR/EC) 81 mg PO DAILY baclofen 10 MG tablet 10 mg PO PRN PRN (Reason: Muscle Spasm) gabapentin 100 MG capsule 200 mg PO TID oxycodone 5 mg capsule 5 mg PO Q8H omeprazole 40 mg capsule,delayed release(DR/EC) 40 mg PO DAILY acetaminophen 500 mg capsule 1,000 mg PO Q6H PRN (Reason: pain) albuterol sulfate 90 mcg/actuation HFA aerosol inhaler 1 - 2 puff INHALATION Q4H PRN PRN (Reason: Wheezing) Qty: 8.5 3RF (DME) FreeStyle Lite Strips Strip See Rx Instructions .Route Qty: 100 3RF Rx Instructions: Twice daily (DME) blood-glucose meter [FreeStyle Lite Meter] Kit See Rx Instructions .Route Qty: 1 0RF Rx Instructions: Test twice daily atorvastatin 40 mg tablet 40 mg PO QHS Qty: 90 3RF Hold Instructions: 10/01/21- Myalgia and sleep issues fluticasone propionate 50 mcg/actuation spray,suspension 1 - 2 spray intranasal BID PRN (Reason: allergies, congestion) Qty: 16 3RF Rx Instructions: administer into each nostril; 2 sprays in each nostril for the first week metformin 500 mg tablet 500 mg PO BID Qty: 180 3RF trazodone 50 mg tablet 50 - 100 mg PO QHS Qty: 90 3RF linaclotide 72 mcg capsule 72 mcg PO DAILY Qty: 90 3RF Referrals / Follow Up: Marlen Bear MD [Primary Care Provider] - Disposition Disposition (needs filled in before D/C Order can be placed): Home, Self Care
--- NOTE | 2023-07-20 14:10 | PCM.DC.SUM ---
Providers Date of Admission: 07/18/23 Primary Care Physician: Dr. Marlen Bear MD Attending Physician: This is a discharge summary on patient Abdirizak Bates. This patient was admitted on Monday 2 days ago. He underwent repeat lumbar laminectomy L4-5 on the left side with discectomy and removal of ligamentum flavum. He did get a dural leak at the time so he has been flat on his back since the surgery but he has been up today. His dressing is dry. Neurologically is intact. He also reports that his leg pain is gone. He was told that the dressing can be removed in 4 days and he can take showers in 5 days. He already has an appointment to see me in the office. In addition I will give him oxycodone/acetaminophen 5 mg for pain at home. Is the end of discharge summary on Abdirizak Bates. This is Dr. Godoy dictating. Consultations 07/18/23 11:05 Consult: Hospitalist Routine Consulting Provider: Dimas Clinton Reason for Consult: Medical Management EMERGENT Consult: No MD Notified: Yes Date Notified: 07/18/23 Time Notified: 13:24 Method of Notification: Text Reason For Visit: Repeat Lumbar laminectomy L4-5 left Diagnosis Discharge Diagnosis (1) High cholesterol: Status: Acute Code(s): E78.00 - Pure hypercholesterolemia, unspecified Medications at Discharge Home Medications aspirin 81 mg tablet,delayed release 81 mg PO DAILY [facility] 12/23/15 multivitamin 1 tab PO DAILY 07/09/19 baclofen 10 mg tablet 10 mg PO PRN PRN Muscle Spasm 05/14/20 gabapentin 100 mg capsule 200 mg PO TID 05/14/20 naproxen sodium 220 mg capsule (Aleve) 220 mg PO BID PRN Pain 02/04/22 albuterol sulfate 90 mcg/actuation aerosol inhaler 1 - 2 puff inhalation Q4H PRN PRN Wheezing #8.5 grams 04/21/22 handicap placard #1 ea 04/21/22 blood sugar diagnostic (FreeStyle Lite Strips) #100 ea 09/15/22 blood-glucose meter (FreeStyle Lite Meter kit) #1 ea 09/15/22 atorvastatin 40 mg tablet 40 mg PO QHS CHOLESTEROL #90 tabs 04/27/23 fluticasone propionate 50 mcg/actuation nasal spray,suspension 1 - 2 spray intranasal BID PRN allergies, congestion #16 grams 04/27/23 metformin 500 mg tablet 500 mg PO BID DIABETES #180 tabs 04/27/23 trazodone 50 mg tablet 50 - 100 mg (1 - 2 x 50 mg) PO QHS sleep #90 tabs 04/27/23 oxycodone 5 mg capsule 5 mg PO Q8H 05/10/23 linaclotide 72 mcg capsule 72 mcg PO DAILY IBS #90 caps 06/27/23 acetaminophen 500 mg capsule 1,000 mg PO Q6H PRN pain 07/18/23 omeprazole 40 mg capsule,delayed release 40 mg PO DAILY 07/18/23 Weight / BMI Weight Weight: 219 lb 0.009 oz Body Mass Index (BMI) 31.4 ABG / Lab / Microbiology Data 07/19/23 08:38 07/19/23 08:38 Laboratory: Laboratory Results - last 24 hr 07/19/23 16:21: POC Glucose 114 H 07/19/23 20:13: POC Glucose 127 H 07/20/23 06:29: POC Glucose 99 07/20/23 12:09: POC Glucose 129 H Microbiology: Microbiology 07/05/23 08:30 Swab (Method) Nasal Screen MRSA/MSSA - Final D/C Instructions May shower in (days): 5 May resume sexual activity in: 4-6 weeks Meaningful Use Info Meaningful Use Diagnoses (Choose all that apply): None applicable Discharge Plan Admission Admit Date/Time: 07/18/23 10:43 Primary Reason for Your Visit: dolores surgery Attending Provider: Ventura Godoy Primary Care Provider: Marlen Bear Consulting Providers: Dimas Clinton Mark Discharge Orders/Prescriptions Prescriptions: No Action multivitamin Tablet 1 tab PO DAILY (DME) handicap placard See Rx Instructions .Route .MEDSUPPLY Qty: 1 0RF Rx Instructions: fatique , pain in right knee , oteoarathritis naproxen sodium [Aleve] 220 mg capsule 220 mg PO BID PRN (Reason: Pain) aspirin 81 MG tablet,delayed release (DR/EC) 81 mg PO DAILY baclofen 10 MG tablet 10 mg PO PRN PRN (Reason: Muscle Spasm) gabapentin 100 MG capsule 200 mg PO TID oxycodone 5 mg capsule 5 mg PO Q8H omeprazole 40 mg capsule,delayed release(DR/EC) 40 mg PO DAILY acetaminophen 500 mg capsule 1,000 mg PO Q6H PRN (Reason: pain) albuterol sulfate 90 mcg/actuation HFA aerosol inhaler 1 - 2 puff INHALATION Q4H PRN PRN (Reason: Wheezing) Qty: 8.5 3RF (DME) FreeStyle Lite Strips Strip See Rx Instructions .Route Qty: 100 3RF Rx Instructions: Twice daily (DME) blood-glucose meter [FreeStyle Lite Meter] Kit See Rx Instructions .Route Qty: 1 0RF Rx Instructions: Test twice daily atorvastatin 40 mg tablet 40 mg PO QHS Qty: 90 3RF Hold Instructions: 10/01/21- Myalgia and sleep issues fluticasone propionate 50 mcg/actuation spray,suspension 1 - 2 spray intranasal BID PRN (Reason: allergies, congestion) Qty: 16 3RF Rx Instructions: administer into each nostril; 2 sprays in each nostril for the first week metformin 500 mg tablet 500 mg PO BID Qty: 180 3RF trazodone 50 mg tablet 50 - 100 mg PO QHS Qty: 90 3RF linaclotide 72 mcg capsule 72 mcg PO DAILY Qty: 90 3RF Referrals / Follow Up: Marlen Bear MD [Primary Care Provider] - Disposition Disposition (needs filled in before D/C Order can be placed): Home, Self Care
--- NOTE | 2023-07-20 14:53 | CASEMGMT ---
Addendum entered by María Elena Feng 07/20/23 17:18: Per Audrey/PT, pt safe to discharge home. Original Note: MATIAS SAUER NOTE: Discharged order is in. RN CM to room. Pt resting in bed. @ bedside. Pt states he has not been OOB yet. An order for therapy is in. Call placed to Audrey in therapy and she was made aware. She states she will be over to see pt today. Scotty LYLESN MATIAS SAUER
[2023-07-20] MEDS: Tamsulosin HCl 0.4 MG Capsule PO (15:03)
[2023-07-20 18:30] LABS: Bedside Glucose 134 mg/dL (74-106)
== END 2023-07-20 17:08 | disposition home or self-care (01) | DRG 519 ==
LOC: SDC 11:01 → MS3 11:01
PROVIDERS: Anesthesiology; Family Medicine; Admitting Provider Orthopaedic Surgery; PCP Internal Medicine; Referring Provider Orthopaedic Surgery; Visit Provider Orthopaedic Surgery
PROC: 0SB20ZZ Excision of Lumbar Vertebral Disc, Open Approach (ICD-10-PCS; CPT 63030; principal; 2023-07-18 07:00)
DX: M51.16 Intervertebral disc disorders with radiculopathy, lumbar region (principal); G97.0 Cerebrospinal fluid leak from spinal puncture; E11.9 Type 2 diabetes mellitus without complications; I10 Essential (primary) hypertension; J45.909 Unspecified asthma, uncomplicated; I25.10 Atherosclerotic heart disease of native coronary artery without angina pectoris; E78.00 Pure hypercholesterolemia, unspecified; F17.220 Nicotine dependence, chewing tobacco, uncomplicated; K21.9 Gastro-esophageal reflux disease without esophagitis; M48.07 Spinal stenosis, lumbosacral region; Z79.82 Long term (current) use of aspirin; Z79.84 Long term (current) use of oral hypoglycemic drugs; Z79.899 Other long term (current) drug therapy; Z86.16 Personal history of COVID-19
CPT/HCPCS: 36415; 72020; 80048; 82962; 83036; 83735; 85025; 86703; 86706; 86708; 86803; 87081; 88304; 94668; 97162; J7120; A4216; J2405; J3475

== ENCOUNTER 2023-08-04 17:56 | Emergency (ER) | payer MEDICARE, SELFPAY ==
[2023-08-04 17:57] VITALS: BP 153/90; PULSE 108; RESP 16; TEMP 36.1; O2SAT 98; BMI 30.4
--- NOTE | 2023-08-04 18:07 | CT_ITS ---
INDICATION: post operative pain EXAMINATION: CT LUMBAR SPINE - CT Spine Lumbar W/ Contrast Injection TECHNIQUE: Helically acquired images were obtained of the lumbar spine. 2D reformats were reviewed. A radiation dose optimization technique was used for this scan. IV Contrast dosage and agent: None. RADIATION DOSAGE (If Supplied By Facility): CTDIvol = ( 26.25 ) mGy, DLP = ( 769.12 ) mGycm COMPARISON: FINDINGS: VERTEBRAE: No fracture or traumatic subluxation. Degenerative spurring at the lumbar endplates. Degenerative spurring narrowing the L2-3 through L4-5 neural foramina. No discrete lytic or blastic abnormality observed. There is a levoscoliosis. Status post laminectomy of L3 and L4. DISCS and SPINAL CANAL: Disc heights are narrowed, most significant at L2-3 and L3-4 with vacuum phenomenon. Bulging disc diffusely at L2-3 and posterior L4-5. No critical stenosis. VISUALIZED ABDOMEN: Visualized abdominal aorta is not dilated. There is no retroperitoneal adenopathy. CT/Spine Lumbar WITH Contrast IMPRESSION: Degenerative and postsurgical changes of the lumbar vertebral column. Bulging disc at L2-3 and to a lesser degree L4-5. Electronically Signed: Logan Eaton DO at 19:21 EST Reading Location ID and State: [facility] / [place] Tel [phone], Service support ,
--- NOTE | 2023-08-04 18:09 | ED.VIS.BACK ---
HPI History of Present Illness Chief Complaint: Back Informant: patient and spouse/S.O. Narrative Narrative: Patient presents secondary to worsening back pain. He had surgery on July [address] Godoy. He had a repeat laminectomy Altagracia L4-5 on the left with discectomy and decompression of the L5 nerve root. Surgery was complicated by dural leak. Patient has had increasing pain since surgery. On Monday (July 31) patient was seen by pain management and had an injection. Patient states he did not know any significant improvement. By Monday evening he had worsening of pain. He is called his surgeon yesterday and today. They have been unable to get an outpatient CT approved so patient was sent to the emergency room for imaging. I did receive a phone call from the PA asking that we get a CT scan the lumbar spine with IV contrast and contact Dr. Godoy with the results. Patient reports feeling warm and chilled intermittently ever since his surgery. He does report increased urinary frequency. He states sometimes he is not able to make it to the bathroom in time, however states he believes it is because he is slow with his back pain and not because he cannot actually control his bladder. [facility] Medical History Agent orange exposure Alcohol use Ambulates with cane Arthritis Arthropathy of cervical facet joint Asthma Atherosclerotic heart disease of [place] coronary artery without angina pectoris Back pain Cancer Cardiology follow-up encounter Cervical spondylosis Chondromalacia of both patellae Chondromalacia, left knee Chondromalacia, right knee COVID-19 virus detected (11/19/20) Degeneration of cervical disc without myelopathy Degeneration of intervertebral disc of lumbosacral region Diabetes Dietary restriction Essential (primary) hypertension Fusion of spine, cervical region High cholesterol History of echocardiogram History of IBS History of pain when walking History of steroid therapy History of stress test Hyperlipemia Injury of head and neck Left knee DJD Nonrheumatic aortic (valve) stenosis with insufficiency Obesity Opioid dependence Prostate disease Radiculopathy of lumbosacral region Restless legs Right knee DJD Shortness of breath on exertion Smokeless tobacco use Spinal stenosis of lumbosacral region Spondylosis of lumbosacral region without myelopathy or radiculopathy Syncope Tear of medial meniscus of right knee Type 2 diabetes mellitus Wears hearing aid Home Medications aspirin 81 mg tablet,delayed release 81 mg PO DAILY HEART [employer] 12/23/15 [History Last Taken 07/11/23] multivitamin 1 tab PO DAILY 07/09/19 [History Last Taken 07/17/23 06:00] baclofen 10 mg tablet 10 mg PO PRN PRN Muscle Spasm 05/14/20 [History Last Taken 07/17/23 18:00] gabapentin 100 mg capsule 200 mg PO TID 05/14/20 [History Last Taken 07/17/23 18:00] naproxen sodium 220 mg capsule (Aleve) 220 mg PO BID PRN Pain 02/04/22 [History Last Taken 07/17/23 18:00] albuterol sulfate 90 mcg/actuation aerosol inhaler 1 - 2 puff inhalation Q4H PRN PRN Wheezing #8.5 grams 04/21/22 [Rx Last Taken Unknown] handicap placard #1 ea 04/21/22 [Rx Last Taken Unknown] blood sugar diagnostic (FreeStyle Lite Strips) #100 ea 09/15/22 [Rx Last Taken Unknown] blood-glucose meter (FreeStyle Lite Meter kit) #1 ea 09/15/22 [Rx Last Taken Unknown] atorvastatin 40 mg tablet 40 mg PO QHS CHOLESTEROL #90 tabs 04/27/23 [Rx Last Taken 07/17/23 18:00] fluticasone propionate 50 mcg/actuation nasal spray,suspension 1 - 2 spray intranasal BID PRN allergies, congestion #16 grams 04/27/23 [Rx Last Taken 07/18/23 03:00] metformin 500 mg tablet 500 mg PO BID DIABETES #180 tabs 04/27/23 [Rx Last Taken 07/17/23 18:00] trazodone 50 mg tablet 50 - 100 mg (1 - 2 x 50 mg) PO QHS sleep #90 tabs 04/27/23 [Rx Last Taken 07/17/23 20:00] oxycodone 5 mg capsule 5 mg PO Q8H 05/10/23 [History Last Taken 07/17/23 18:00] linaclotide 72 mcg capsule 72 mcg PO DAILY IBS #90 caps 06/27/23 [Rx Last Taken 07/17/23 06:00] acetaminophen 500 mg capsule 1,000 mg PO Q6H PRN pain 07/18/23 [History Last Taken 07/17/23 18:00] omeprazole 40 mg capsule,delayed release 40 mg PO DAILY 07/18/23 [History Last Taken 07/18/23 04:00] oxycodone-acetaminophen 7.5 mg-325 mg tablet 1 tab PO Q6H PRN pain 10 days #40 tabs 07/28/23 [Rx Last Taken Unknown] Allergy/AdvReac Type Severity Reaction Status Date / Time adhesive tape Allergy Rash Verified 07/31/23 09:51 sertraline [From Zoloft] AdvReac Unknown Verified 07/31/23 09:51 Family History Brother Heart disease Myocardial infarction 60's CAD (coronary artery disease) Father Myocardial infarction 65 CAD (coronary artery disease) Surgical History H/O cervical spine surgery (08/2020) H/O coronary artery bypass surgery (09/14/11) History of back surgery History of carpal tunnel release History of herniorrhaphy History of lateral meniscus repair of right knee (~2021) History of left heart catheterization (09/09/11) Hx laparoscopic cholecystectomy (~11/2022) Hx of bilateral cataract extraction Status post discectomy for herniated nucleus pulposus Social History Smoking Status: Current every day smoker tobacco type: smokeless tobacco alcohol intake: current alcohol intake frequency: a few times a month substance use type: does not use caffeine: Yes Type: coffee Number of servings: 2 ROS ROS ED Constitutional Constitutional ED: Reports chills Eyes Eyes: Denies change in vision or discharge from eye(s) ENT ENT ED: Denies discharge from eye(s), rhinorrhea or sore throat Cardiovascular Cardiovascular: Denies chest pain or palpitations Respiratory/Chest Respiratory/Chest: Denies cough or dyspnea Gastrointestinal Gastrointestinal: Denies abdominal pain, nausea or vomiting Genitourinary Genitourinary ED: Reports urinary frequency; Denies dysuria Musculoskeletal Musculoskeletal: Reports back pain and extremity pain Integumentary Denies Abrasions or rash Neurologic Neurologic: Denies headache(s) or weakness Allergic/Immunologic Allergic/Immunologic ED: Denies lip swelling or urticaria EXAM Physical Exam Const Vital Signs: 08/04/23 17:57 Temperature 97 F L Temperature Source Temporal Pulse Rate 108 H Respiratory Rate 16 Blood Pressure 153/90 H Blood Pressure Mean 111 Pulse Ox 98 Oxygen Delivery Method Room Air Positive well nourished and well developed General Appearance ED: well developed HEENT Reports moist mucous membranes Eyes EOMs intact bilaterally Resp normal respiratory effort and clear to auscultation bilaterally Cardio regular rate and regular rhythm GI soft to palpation and non-tender Extremity normal to inspection Extremity Narrative: Strong distal pulses with normal sensation. Neuro Neuro Narrative: 1+ bilateral patellar reflexes. Psych Mood & Affect: tearful MDM MDM MDM Narrative Medical decision making narrative: IV line is established. Patient given Dilaudid and Zofran for pain control. Labwork obtained to evaluate for leukocytosis, anemia, and electrolyte derangement. CT scan the lumbar spine with IV contrast ordered. History & Record Review Discussion w/independent historian: Patient and Significant other Additional record(s) reviewed:: Prior inpatient record and Prior labs Lab Data Attestation: I reviewed the patient's lab results. Labs: Laboratory Results - last 24 hr 08/04/23 08/04/23 18:15 18:50 WBC 11.9 H RBC 4.80 Hgb 13.8 Hct 42.7 MCV 89.0 MCH 28.8 MCHC 32.3 RDW Std Deviation 42.5 RDW Coeff of Frankie 12.9 Plt Count 356 MPV 8.2 Immature Gran % (Auto) 0.700 Neut % (Auto) 63.6 Lymph % (Auto) 26.4 Harmon % (Auto) 7.1 Eos % (Auto) 1.5 Baso % (Auto) 0.7 Absolute Neuts (auto) 7.6 Absolute Lymphs (auto) 3.14 Nucleated RBC % 0 ESR 20 Sodium 137 Potassium 4.0 Chloride 104 Carbon Dioxide 29.0 Anion Gap 4 L BUN 24 H Creatinine 0.97 Estim Creat Clear Calc 73.17 Est GFR (MDRD) Af Amer 98 Est GFR (MDRD) Non-Af 81 BUN/Creatinine Ratio 24.7 H Glucose 204 H Calcium 9.8 C-React Prot Ext Range 19.00 H Urine Color Yellow Urine Clarity Clear Urine pH 6.0 Ur Specific [place] 1.010 Urine Protein Negative Urine Glucose (UA) 100 H Urine Ketones Negative Urine Occult Blood Negative Urine Nitrite Negative Urine Bilirubin Negative Urine Urobilinogen 1 H Ur Leukocyte Esterase Negative Urine RBC 0 SEEN Urine WBC 0 SEEN Ur Squamous Epith Cells 0 SEEN Urine Bacteria 0 SEEN Urine Mucus 0 SEEN Radiography Diagnostic Testing: Clinical Impression(s) from Imaging Studies Lumbar Spine CT 08/04/23 18:07 IMPRESSION: Degenerative and postsurgical changes of the lumbar vertebral column. Bulging disc at L2-3 and to a lesser degree L4-5. Electronically Signed: Logan Eaton DO at 19:21 EST Reading Location ID and State: [facility] / [place] Tel [phone], Service support , Treatment and Re-Evaluation Narrative: CBC with a white count 11.9 with normal hemoglobin at 13.8. No left shift appreciated. Sed rate is normal at 20 but CRP is elevated at 19. Chemistry studies unremarkable. Urinalysis negative. CT scan of the lumbar spine with IV contrast obtained. There is degenerative and postsurgical changes of the lumbar vertebral column. Bulging disc at L2-3 and to a lesser degree at L4-5 noted. On repeat evaluation patient states his pain is improved but is starting to return. I did speak with Dr. Godoy, the patient's surgeon. He is happy with the CT results at this time and advised to tell the patient that he should continue his current medication regimen and his symptoms should be improving. They will stay in close contact with the patient. This was all relayed to the patient and spouse. Discharge Plan Triage Chief Complaint: Back ED Provider: Elvia Pineda Dx/Rx/DC Orders Clinical Impression: Postoperative back pain Instructions: ED Post Op Wound Check, Pain Prescriptions: No Action multivitamin Tablet 1 tab PO DAILY (DME) handicap clarisseard See Rx Instructions .Route .MEDSUPPLY Qty: 1 0RF Rx Instructions: fatique , pain in right knee , oteoarathritis naproxen sodium [Aleve] 220 mg capsule 220 mg PO BID PRN (Reason: Pain) oxycodone-acetaminophen 7.5-325 mg tablet 1 tab PO Q6H PRN (Reason: pain) 10 Days Qty: 40 0RF aspirin 81 MG tablet,delayed release (DR/EC) 81 mg PO DAILY baclofen 10 MG tablet 10 mg PO PRN PRN (Reason: Muscle Spasm) gabapentin 100 MG capsule 200 mg PO TID oxycodone 5 mg capsule 5 mg PO Q8H omeprazole 40 mg capsule,delayed release(DR/EC) 40 mg PO DAILY acetaminophen 500 mg capsule 1,000 mg PO Q6H PRN (Reason: pain) albuterol sulfate 90 mcg/actuation HFA aerosol inhaler 1 - 2 puff INHALATION Q4H PRN PRN (Reason: Wheezing) Qty: 8.5 3RF (DME) FreeStyle Lite Strips Strip See Rx Instructions .Route Qty: 100 3RF Rx Instructions: Twice daily (DME) blood-glucose meter [FreeStyle Lite Meter] Kit See Rx Instructions .Route Qty: 1 0RF Rx Instructions: Test twice daily atorvastatin 40 mg tablet 40 mg PO QHS Qty: 90 3RF Hold Instructions: 10/01/21- Myalgia and sleep issues fluticasone propionate 50 mcg/actuation spray,suspension 1 - 2 spray intranasal BID PRN (Reason: allergies, congestion) Qty: 16 3RF Rx Instructions: administer into each nostril; 2 sprays in each nostril for the first week metformin 500 mg tablet 500 mg PO BID Qty: 180 3RF trazodone 50 mg tablet 50 - 100 mg PO QHS Qty: 90 3RF linaclotide 72 mcg capsule 72 mcg PO DAILY Qty: 90 3RF Primary Care Provider: Marlen Bear Referrals: Marlen Bear MD [Primary Care Provider] - Ventura Godoy DO [Med Staff - Active Staff] - 5-7 Days Disposition Disposition: Home, Self Care
[2023-08-04 18:22] LABS: Absolute Lymphocyte Count 3.14 X10^3/uL (0.83-4.51); Absolute Neutrophil Count 7.6 X10^3/uL (2.0-7.7); Basophil# 0.08 X10^3/uL; Basophil% 0.7 % (0-1); Eosinophil# 0.18 X10^3/uL; Eosinophils% 1.5 % (0-5); Hematocrit 42.7 % (40-54); Hemoglobin 13.8 g/dL (13.0-16.5); Lymphocyte # 3.14 X10^3/ul (0.83-4.51); Lymphocyte % 26.4 % (19-41); Mean Corp Hgb Conc 32.3 g/dL (32-36); Mean Corpuscular Hgb 28.8 pg (27.0-32.0); Mean Platelet Vol. 8.2 fl (6.2-12.0); Monocyte# 0.84 X10^3/uL; Monocyte% 7.1 % (0-10); NRBC Flagged by Analyzer 0 % (0-5); Neutrophil # 7.58 X10^3/uL (2.7-7.7); Neutrophil % 63.6 % (47-70); Platelet Count 356 K/mm3 (150-450); RBC Distribution Width CV 12.9 % (11.6-14.6); RBC Distribution Width SD 42.5 fl (35.1-43.9); White Blood Count 11.9 K/mm3 (4.4-11.0)
[2023-08-04] MEDS: HYDROmorphone 1 MG/ML Syringe 0.5 MG IV (18:25)
[2023-08-04] MEDS: Ondansetron 4 MG/2 ML Vial IV (18:26)
[2023-08-04 18:31] LABS: Erythrocyte Sedimentation Rate 20 mm/hr (0-20)
[2023-08-04 18:43] LABS: Anion Gap 4 (5-15); BUN 24 mg/dL (7-18); BUN/Creat Ratio 24.7 RATIO (10-20); Calcium,Total 9.8 mg/dL (8.5-10.1); Chloride 104 mmol/L (98-107); Creatinine, Serum 0.97 mg/dL (0.70-1.30); EST Glomerular Filtration Rate 81 mL/min (>60); Est Glom Filt Rate - Afr Amer 98 mL/min (>60); Estimated Creatinine Clearance 73.17 ml/min; Glucose 204 mg/dL (74-106); Sodium Level 137 mmol/L (136-145)
[2023-08-04 18:58] LABS: Bacteria 0 SEEN /hpf (None Seen); Mucous, Urine 0 SEEN /hpf (<or=2+); Red Blood Cells-Urine 0 SEEN /hpf (0-5); Squamous Epithelial Cells - UA 0 SEEN /hpf (0-5); White Blood Cells 0 SEEN /hpf (0-5)
[2023-08-04 19:10] LABS: Color, Urine Yellow (Yellow); Glucose, Dipstick 100 mg/dl (Normal); Ketone-Dipstick Negative (Negative); Leukocyte Esterase-Dipstick Negative /ul (Negative); Nitrite-Dipstick Negative (Negative); Occult Blood-Urine Negative /ul (Negative); Protein-Dipstick Negative (Negative); Urine Bilirubin Dipstick Negative (Negative); Urine Clarity Clear (Clear); Urine Urobilinogen 1 mg/dl (Normal)
[2023-08-04] MEDS: HYDROmorphone 0.5 MG/0.5 ML SYRINGE IV (20:31)
== END 2023-08-04 20:52 | disposition home or self-care (01) ==
PROVIDERS: Emergency Provider Emergency Medicine; PCP Internal Medicine; Visit Provider Emergency Medicine
DX: G89.18 Other acute postprocedural pain (principal); E11.9 Type 2 diabetes mellitus without complications; M54.9 Dorsalgia, unspecified; F17.220 Nicotine dependence, chewing tobacco, uncomplicated; R35.0 Frequency of micturition; I25.10 Atherosclerotic heart disease of native coronary artery without angina pectoris; I10 Essential (primary) hypertension; E78.00 Pure hypercholesterolemia, unspecified; J45.909 Unspecified asthma, uncomplicated
CPT/HCPCS: 72132; 80048; 81001; 85025; 85652; 86140; 96374; 96375; 96376; 99283; Q9967; A4216; J2405

== ENCOUNTER 2023-08-14 15:30 | Emergency (ER) | payer MEDICARE, SELFPAY ==
[2023-08-14 15:31] VITALS: BP 141/87; PULSE 111; RESP 22; TEMP 36.6; O2SAT 100; BMI 31.2
--- NOTE | 2023-08-14 15:43 | RAD_ITS ---
EXAM: XR CHEST, 1 VIEW CLINICAL INDICATION: sob TECHNIQUE: Frontal view of the chest. COMPARISON: 03/24/2022 FINDINGS: LUNGS AND PLEURAL SPACES: Unremarkable. No consolidation or edema. No pneumothorax. No effusion. HEART: Unremarkable. Cardiac silhouette not enlarged. MEDIASTINUM: Central airways and mediastinal contour are unremarkable. BONES/JOINTS: Unremarkable. No acute fracture. SOFT TISSUES: Unremarkable. RAD/Chest 1 View (Portable) IMPRESSION: No radiographic evidence of acute cardiopulmonary disease. Electronically Signed: Robert Whittington MD at 17:23 EST ,
--- NOTE | 2023-08-14 15:47 | EX.ED.DYSGE1 ---
HPI History of Present Illness Chief Complaint: Shortness of Breath Informant: patient and spouse/S.O. Onset/Context/Timing Onset: Weeks Context: Gradual Onset Timing: Waxes and wanes Current Severity: Moderate Maximum Severity: Moderate Narrative Narrative: Presents with multiple complaints. He had back surgery on July [address] Godoy. He was seen here in the ER on the secondary to continued severe back pain. CT scan showed postoperative changes which were discussed with Dr. Godoy and patient was discharged home. Patient presents today stating he still just does not feel good. He reports fever to 99. He has complained intermittently of some shortness of breath and some chest pain. He states he feels like he has difficulty swallowing. He can eat soft textures without difficulty but states he is having trouble swallowing solid foods. He complains of weakness and some intermittent paresthesias. He states he feels that there is an infection somewhere in his body. [facility] Medical History Agent orange exposure Alcohol use Ambulates with cane Arthritis Arthropathy of cervical facet joint Asthma Atherosclerotic heart disease of [place] coronary artery without angina pectoris Back pain Cancer Cardiology follow-up encounter Cervical spondylosis Chondromalacia of both patellae Chondromalacia, left knee Chondromalacia, right knee COVID-19 virus detected (11/19/20) Degeneration of cervical disc without myelopathy Degeneration of intervertebral disc of lumbosacral region Diabetes Dietary restriction Essential (primary) hypertension Fusion of spine, cervical region High cholesterol History of echocardiogram History of IBS History of pain when walking History of steroid therapy History of stress test Hyperlipemia Injury of head and neck Left knee DJD Nonrheumatic aortic (valve) stenosis with insufficiency Obesity Opioid dependence Prostate disease Radiculopathy of lumbosacral region Restless legs Right knee DJD Shortness of breath on exertion Smokeless tobacco use Spinal stenosis of lumbosacral region Spondylosis of lumbosacral region without myelopathy or radiculopathy Syncope Tear of medial meniscus of right knee Type 2 diabetes mellitus Wears hearing aid Home Medications aspirin 81 mg tablet,delayed release 81 mg PO DAILY HEART HEALTH 12/23/15 [History Last Taken 07/11/23] multivitamin 1 tab PO DAILY 07/09/19 [History Last Taken 07/17/23 06:00] baclofen 10 mg tablet 10 mg PO PRN PRN Muscle Spasm 05/14/20 [History Last Taken 07/17/23 18:00] gabapentin 100 mg capsule 200 mg PO TID 05/14/20 [History Last Taken 07/17/23 18:00] naproxen sodium 220 mg capsule (Aleve) 220 mg PO BID PRN Pain 02/04/22 [History Last Taken 07/17/23 18:00] albuterol sulfate 90 mcg/actuation aerosol inhaler 1 - 2 puff inhalation Q4H PRN PRN Wheezing #8.5 grams 04/21/22 [Rx Last Taken Unknown] handicap placard #1 ea 04/21/22 [Rx Last Taken Unknown] blood sugar diagnostic (FreeStyle Lite Strips) #100 ea 09/15/22 [Rx Last Taken Unknown] blood-glucose meter (FreeStyle Lite Meter kit) #1 ea 09/15/22 [Rx Last Taken Unknown] atorvastatin 40 mg tablet 40 mg PO QHS CHOLESTEROL #90 tabs 04/27/23 [Rx Last Taken 07/17/23 18:00] fluticasone propionate 50 mcg/actuation nasal spray,suspension 1 - 2 spray intranasal BID PRN allergies, congestion #16 grams 04/27/23 [Rx Last Taken 07/18/23 03:00] metformin 500 mg tablet 500 mg PO BID DIABETES #180 tabs 04/27/23 [Rx Last Taken 07/17/23 18:00] trazodone 50 mg tablet 50 - 100 mg (1 - 2 x 50 mg) PO QHS sleep #90 tabs 04/27/23 [Rx Last Taken 07/17/23 20:00] oxycodone 5 mg capsule 5 mg PO Q8H 05/10/23 [History Last Taken 07/17/23 18:00] linaclotide 72 mcg capsule 72 mcg PO DAILY IBS #90 caps 06/27/23 [Rx Last Taken 07/17/23 06:00] acetaminophen 500 mg capsule 1,000 mg PO Q6H PRN pain 07/18/23 [History Last Taken 07/17/23 18:00] omeprazole 40 mg capsule,delayed release 40 mg PO DAILY 07/18/23 [History Last Taken 07/18/23 04:00] oxycodone-acetaminophen 7.5 mg-325 mg tablet 1 tab PO Q6H PRN pain 15 days #60 tabs 08/11/23 [Rx Last Taken Unknown] Allergy/AdvReac Type Severity Reaction Status Date / Time adhesive tape Allergy Rash Verified 08/14/23 15:31 sertraline [From Zoloft] AdvReac Unknown Verified 08/14/23 15:31 Family History Brother Heart disease Myocardial infarction 60's CAD (coronary artery disease) Father Myocardial infarction 65 CAD (coronary artery disease) Surgical History H/O cervical spine surgery (08/2020) H/O coronary artery bypass surgery (09/14/11) History of back surgery History of carpal tunnel release History of herniorrhaphy History of lateral meniscus repair of right knee (~2021) History of left heart catheterization (09/09/11) Hx laparoscopic cholecystectomy (~11/2022) Hx of bilateral cataract extraction Status post discectomy for herniated nucleus pulposus Social History Smoking Status: Current every day smoker tobacco type: smokeless tobacco alcohol intake: current alcohol intake frequency: a few times a month substance use type: does not use caffeine: Yes Type: coffee Number of servings: 2 ROS ROS ED Constitutional Constitutional ED: Reports fever(s); Denies chills Eyes Eyes: Denies change in vision or discharge from eye(s) ENT ENT ED: Reports other Details: My mouth is raw ; Denies discharge from eye(s), rhinorrhea or sore throat Cardiovascular Cardiovascular: Reports chest pain; Denies palpitations Respiratory/Chest Respiratory/Chest: Reports dyspnea; Denies cough Gastrointestinal Gastrointestinal: Denies abdominal pain, diarrhea, nausea or vomiting Genitourinary Genitourinary ED: Reports difficulty urinating; Denies dysuria Musculoskeletal Musculoskeletal: Reports back pain and extremity pain Integumentary Denies Abrasions or rash Neurologic Neurologic: Reports paresthesias and weakness; Denies headache(s) Psychiatric Psychiatric: Denies anxiety or depression Allergic/Immunologic Allergic/Immunologic ED: Denies lip swelling or urticaria EXAM Physical Exam Const Vital Signs: 08/14/23 15:31 08/14/23 16:07 08/14/23 16:08 Temperature 98 F 98 F Temperature Source Temporal Temporal Pulse Rate 111 H 111 H Respiratory Rate 22 H 22 H Respiratory Effort Normal Respiratory Depth Normal Respiratory Pattern Normal Blood Pressure 141/87 H 141/87 H Blood Pressure Mean 105 105 Pulse Ox 100 100 Oxygen Delivery Method Room Air Room Air Room Air 08/14/23 17:40 08/14/23 18:23 08/14/23 19:40 Temperature 98.4 F Temperature Source Oral Pulse Rate 79 74 65 Respiratory Rate 16 28 H 17 Respiratory Effort Respiratory Depth Respiratory Pattern Blood Pressure 139/84 H 125/68 H Blood Pressure Mean 102 87 Pulse Ox 96 95 93 Oxygen Delivery Method Room Air Room Air Positive well nourished and well developed General Appearance ED: well developed HEENT HEENT Narrative: Mildly dry mucous membranes. No mucosal lesions noted. Eyes EOMs intact bilaterally Neck no lymphadenopathy Chest Wall inspection of chest normal and palpation of chest normal Resp normal respiratory effort and clear to auscultation bilaterally Cardio regular rate and regular rhythm GI non-tender Palpation: soft Back/Spine Back/Spine Narrative: Incision site clean and healing well. No surrounding erythema. No tenderness to palpation around the area. Extremity normal to inspection Neuro oriented x3 Neuro Narrative: Patient able to lift both knees against resistance while sitting on the side of the bed. Psych mental status grossly normal MDM MDM MDM Narrative Medical decision making narrative: Patient placed on compliance monitor. IV line initiated. EKG obtained to evaluate for cardiac arrhythmia/ischemia. Chest x-ray obtained to evaluate for acute lung pathology, cardiac size, or mediastinal abnormality. Labwork obtained to evaluate for leukocytosis, anemia, and electrolyte derangement. Swab for COVID and influenza obtained. I will ask nursing staff to perform a bedside swallow eval as he reports difficulty with swallowing. History & Record Review Discussion w/independent historian: Patient and Family Additional record(s) reviewed:: Prior ED visit Lab Data Attestation: I reviewed the patient's lab results. Labs: Laboratory Results - last 24 hr 08/14/23 08/14/23 15:58 17:38 WBC 9.5 RBC 4.64 Hgb 13.4 Hct 40.7 MCV 87.7 MCH 28.9 MCHC 32.9 RDW Std Deviation 41.3 RDW Coeff of Frankie 13.0 Plt Count 298 MPV 8.4 Immature Gran % (Auto) 0.400 Neut % (Auto) 67.0 Lymph % (Auto) 21.5 Lea % (Auto) 7.2 Eos % (Auto) 3.6 Baso % (Auto) 0.3 Absolute Neuts (auto) 6.3 Absolute Lymphs (auto) 2.03 Nucleated RBC % 0 PT 12.4 INR 0.9 APTT 30.8 D-Dimer Quant (PE/DVT) 0.84 H* Sodium 136 Potassium 3.9 Chloride 102 Carbon Dioxide 28.0 Anion Gap 6 BUN 26 H Creatinine 1.32 H Estim Creat Clear Calc 53.77 Est GFR (MDRD) Af Amer 69 Est GFR (MDRD) Non-Af 57 L BUN/Creatinine Ratio 19.7 Glucose 168 H Lactic Acid 2.3 H* Calcium 9.4 Total Bilirubin 1.50 H Direct Bilirubin 0.31 H AST 17 ALT 30 Alkaline Phosphatase 123 H Troponin I High Sens 7 B-Natriuretic Peptide 19.7 Total Protein 7.3 Albumin 3.4 Globulin 3.9 Urine Color Yellow Urine Clarity Sl. Cloudy Urine pH 7.0 Ur Specific [place] 1.015 Urine Protein Negative Urine Glucose (UA) Normal Urine Ketones 5 H Urine Occult Blood Negative Urine Nitrite Negative Urine Bilirubin Negative Urine Urobilinogen 4 H Ur Leukocyte Esterase Negative Urine RBC 0 SEEN Urine WBC 0 SEEN Ur Squamous Epith Cells 0 SEEN Urine Bacteria 0 SEEN Urine Mucus 0 SEEN Radiography Chest X-Ray - ED: 1 View, Read by ED Physician, Normal, Heart, Lungs and Mediastinum Diagnostic Testing: Clinical Impression(s) from Imaging Studies Chest X-Ray 08/14/23 15:43 IMPRESSION: No radiographic evidence of acute cardiopulmonary disease. Electronically Signed: Robert Whittington MD at 17:23 EST , Brain CT 08/14/23 17:17 IMPRESSION: No acute intracranial abnormality. There has been no change from the reference examination. Electronically Signed: Robert Whittington MD at 18:56 EST , Chest CTA 08/14/23 17:17 IMPRESSION: Negative CTA chest. Electronically Signed: Robert Whittington MD at 18:59 EST , Lumbar Spine CT 08/14/23 17:17 IMPRESSION: No acute osseous abnormalities in the spine. There are postsurgical changes with bilateral laminectomy at L3 and L4. There are degenerative changes with disc space narrowing and facet hypertrophy. Electronically Signed: Robert Whittington MD at 18:58 EST , EKG Initial EKG: Attestation: I personally reviewed and interpreted this EKG as follows: Interpretation: Sinus Rhythm (Sinus at 93 with no acute ischemia.) Treatment and Re-Evaluation :: CBC was normal white count 9.5 with no left shift. Hemoglobin 13.4. Coags unremarkable. D-dimer slightly elevated at 0.84. Chemistry studies reveal a BUN of 26 and creatinine 1.32. This is elevated when compared to prior creatinine of 0.97 on August 04. Lactic acid is 2.3. I believe this is likely secondary to his metformin use. Urinalysis reveals 5 ketones with no evidence of infection. Portable chest x-ray per my interpretation reveals no evidence of infiltrate. Radiology interpretation reviewed and agrees. Patient sent for head CT which reveals no evidence of acute abnormality. With his elevated D-dimer a CTA of the chest is obtained and this reveals no evidence of pulmonary embolism or dissection. No infiltrate. CT of the lumbar spine also obtained. No acute osseous abnormalities of the spine are noted. Postsurgical changes are appreciated. Swab for COVID and influenza is negative. Patient complained of difficulty swallowing. We performed a bedside swallow test and he had no problems with this. Patient's blood sugars have been recently elevated as he was on steroids for 4 days. 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 I do not see any mechanical problems with his swallowing at this time. Test results were all discussed with patient and at bedside. He has had reported low-grade fevers at home that I have not been able to explain, but see no sign of significant infection at this time. They were advised that blood and urine cultures are pending and they will be called if anything requires further treatment. He is scheduled to see his back surgeon later this week. Return instructions given. Discharge Plan Triage Chief Complaint: Shortness of Breath ED Provider: Elvia Pineda Dx/Rx/DC Orders Clinical Impression: Viral syndrome Instructions: ED Viral Syndrome (Adult) Prescriptions: No Action multivitamin Tablet 1 tab PO DAILY (DME) handicap placard See Rx Instructions .Route .MEDSUPPLY Qty: 1 0RF Rx Instructions: fatique , pain in right knee , oteoarathritis naproxen sodium [Aleve] 220 mg capsule 220 mg PO BID PRN (Reason: Pain) aspirin 81 MG tablet,delayed release (DR/EC) 81 mg PO DAILY baclofen 10 MG tablet 10 mg PO PRN PRN (Reason: Muscle Spasm) gabapentin 100 MG capsule 200 mg PO TID oxycodone 5 mg capsule 5 mg PO Q8H omeprazole 40 mg capsule,delayed release(DR/EC) 40 mg PO DAILY acetaminophen 500 mg capsule 1,000 mg PO Q6H PRN (Reason: pain) albuterol sulfate 90 mcg/actuation HFA aerosol inhaler 1 - 2 puff INHALATION Q4H PRN PRN (Reason: Wheezing) Qty: 8.5 3RF (DME) FreeStyle Lite Strips Strip See Rx Instructions .Route Qty: 100 3RF Rx Instructions: Twice daily (DME) blood-glucose meter [FreeStyle Lite Meter] Kit See Rx Instructions .Route Qty: 1 0RF Rx Instructions: Test twice daily atorvastatin 40 mg tablet 40 mg PO QHS Qty: 90 3RF Hold Instructions: 10/01/21- Myalgia and sleep issues fluticasone propionate 50 mcg/actuation spray,suspension 1 - 2 spray intranasal BID PRN (Reason: allergies, congestion) Qty: 16 3RF Rx Instructions: administer into each nostril; 2 sprays in each nostril for the first week metformin 500 mg tablet 500 mg PO BID Qty: 180 3RF trazodone 50 mg tablet 50 - 100 mg PO QHS Qty: 90 3RF linaclotide 72 mcg capsule 72 mcg PO DAILY Qty: 90 3RF oxycodone-acetaminophen 7.5-325 mg tablet 1 tab PO Q6H PRN (Reason: pain) 15 Days Qty: 60 0RF Primary Care Provider: Marlen Bear Referrals: Marlen Bear MD [Primary Care Provider] - 1 Week if not improving [place] Godoy DO [Med Staff - Active Staff] - Keep Trish appointment Disposition Disposition: Home, Self Care Discharge Date/Time: 08/14/23 19:41
[2023-08-14] MEDS: 0.9% Normal Saline (1000mL) 1,000 ML 150 ML IV (16:05)
[2023-08-14 16:07] VITALS: BP 141/87; PULSE 111; RESP 22; TEMP 36.6; O2SAT 100
[2023-08-14 16:08] VITALS: O2SAT 100
[2023-08-14 16:20] LABS: Absolute Lymphocyte Count 2.03 X10^3/uL (0.83-4.51); Absolute Neutrophil Count 6.3 X10^3/uL (2.0-7.7); Basophil# 0.03 X10^3/uL; Basophil% 0.3 % (0-1); Eosinophil# 0.34 X10^3/uL; Eosinophils% 3.6 % (0-5); Hematocrit 40.7 % (40-54); Hemoglobin 13.4 g/dL (13.0-16.5); Lymphocyte # 2.03 X10^3/ul (0.83-4.51); Lymphocyte % 21.5 % (19-41); Mean Corp Hgb Conc 32.9 g/dL (32-36); Mean Corpuscular Hgb 28.9 pg (27.0-32.0); Mean Corpuscular Volume 87.7 fL (80-94); Mean Platelet Vol. 8.4 fl (6.2-12.0); Monocyte# 0.68 X10^3/uL; Monocyte% 7.2 % (0-10); NRBC Flagged by Analyzer 0 % (0-5); Neutrophil # 6.34 X10^3/uL (2.7-7.7); Platelet Count 298 K/mm3 (150-450); RBC Distribution Width SD 41.3 fl (35.1-43.9); Red Blood Count 4.64 M/mm3 (4.6-6.2); White Blood Count 9.5 K/mm3 (4.4-11.0)
[2023-08-14 16:39] LABS: BNP,B-Type NATRIURETIC PEPTIDE 19.7 pg/mL (0-100)
[2023-08-14 16:44] LABS: Lactic Acid 2.3 mmol/L (0.4-1.9)
--- OUTSIDE RECORDS SUMMARY | 2023-08-14 16:47 | XMS RPT_ITS | CCD ---
Author Name Unknown Address [address] [place] [address] Organization [facility] Care Team Providers Care Remediation Technician Name Role Phone HOLLY COHEN Unavailable Unavailable HOLLY COHNE Unavailable Unavailable Jose Luis Lopez Unavailable Unavailable HOLLY COHEN Unavailable Unavailable HOLLY COHEN Unavailable Unavailable Unavailable Primary Care Provider UnavailMarshall Soliz MD Primary Care Provider LEROY ALCOCER Attending Unavailable LEROY ALCOCER Admitting Unavailable GRAF FREDRICK Attending Unavailable LEROY ALCOCER Referring Unavailable LEROY ALCOCER Attending Unavailable LEROY ALCOCER Referring Unavailable TITI, FREDRICK Attending Unavailable , FREDRICK Referring Unavailable , FREDRICK Attending Unavailable MARSHALL YOUSIF Primary Care Unavailable MARSHALL YOUSIF Primary Care Unavailable LEROY ALCOCER Attending Unavailable Allergies Allergy Classification Reported Allergen(s) Allergy Type Date of Onset Reaction(s) Facility (16 sources) Adhesive Tape; Translations: [ADHESIVE TAPE (ROSINS)] Propensity to adverse reactions (disorder) 5 Itching [facility] Repository (16 sources) Contrast media; Translations: [CONTRAST DYE] Propensity to adverse reactions (disorder) 9 [facility]ository (2 sources) cortisone; Translations: [CORTISONE] Drug Allergy 4 [facility] (16 sources) sertraline; Translations: [SERTRALINE] Drug Allergy 4 [facility] (16 sources) FD AND C BLUE NO.1; Translations: [FD AND C BLUE NO.1] Propensity to adverse reactions (disorder) 9 [facility] Medications Completed/Discontinued Medications Medication Drug Class(es) Dates Sig (Normalized) Sig (Original) acetaminophen 325 mg / HYDROcodone bitartrate 5 mg oral tablet (8 sources) Opioid Agonist Start: 04-26-2013 End: 11-04-2022 take 1 tablet by mouth every six hours as needed HYDROcodone-acetami nophen 5-325 mg per tablet Indications: Sciatica Take 1 tablet by mouth every 6 hours as needed. 60 tablet 0 04/26/2013 11/04/2022 Discontinued Problems Active Problems Problem Classification Problem Date Documented Da te Episodic/Chronic Abdominal pain (6 sources) Epigastric pain; Translations: [Epigastric pain] Onset: 09-27-2022 Episodic Biliary tract disease (5 sources) Cholelithiasis without obstruction; Translations: [Calculus of gallbladder without cholecystitis without obstruction] Onset: 10-20-2022 Episodic Chronic obstructive pulmonary disease and bronchiectasis (13 sources) Emphysematous bronchitis; Translations: [Chronic obstructive pulmonary disease, unspecified] 07-17-2017 Chronic Complication of device; implant or graft (1 source) Atherosclerosis of coronary artery bypass graft(s), unspecified, with other forms of angina pectoris; Translations: [Atherosclerosis of coronary artery bypass graft(s), unspecified, with other forms of angina pectoris] Onset: 09-19-2017 Chronic Coronary atherosclerosis and other heart disease (14 sources) Atherosclerotic heart disease of nikolai coronary artery without angina pectoris; Translations: [Coronary arteriosclerosis] Onset: 09-04-2012 08-09-2021 Chronic Diabetes mellitus without complication (13 sources) Type 2 diabetes mellitus without complication; Translations: [Type 2 diabetes mellitus without complications] Onset: 07-17-2018 07-17-2018 Chronic Disorders of lipid metabolism (13 sources) Hyperlipidemia; Translations: [Other hyperlipidemia] 07-17-2017 Chronic Diverticulosis and diverticulitis (2 sources) Diverticular disease; Translations: [Diverticulosis of intestine, part unspecified, without perforation or abscess without bleeding] Onset: 10-07-2022 Chronic Esophageal disorders (14 sources) Gastro-esophageal reflux disease with esophagitis; Translations: [Gastroesophageal reflux disease with esophagitis] Onset: 09-24-2016 09-24-2016 Chronic Esophageal disorders (1 source) Esophageal disorders; Translations: [Gastroesophageal reflux disease with esophagitis, unspecified whether hemorrhage] Onset: 09-24-2016 Gastritis and duodenitis (2 sources) Gastroduodenitis; Translations: [Gastroduodenitis, unspecified, without bleeding] Onset: 10-07-2022 Episodic Hyperplasia of prostate (13 sources) Benign prostatic hypertrophy with outflow obstruction; Translations: [Benign prostatic hyperplasia with lower urinary tract symptoms] Onset: 08-04-2017 08-04-2017 Chronic Osteoarthritis (12 sources) Degenerative joint disease involving multiple joints; Translations: [Polyosteoarthritis, unspecified] Onset: 12-10-2003 07-17-2017 Chronic Other and unspecified benign neoplasm (4 sources) History of polyp of colon; Translations: [Personal history of colonic polyps] Episodic Other and unspecified benign neoplasm (1 source) Personal history of colonic polyps; Translations: [History of colonic polyps] Onset: 10-07-2022 Episodic Other ear and sense organ disorders (13 sources) Bilateral hearing loss; Translations: [Unspecified hearing loss, bilateral] 08-09-2021 Chronic Other gastrointestinal disorders (13 sources) Constipation; Translations: [Constipation, unspecified] Onset: 06-28-2010 07-17-2017 Episodic Other inflammatory condition of skin (12 sources) Rosacea; Translations: [Rosacea, unspecified] 08-09-2021 Chronic Other nutritional; endocrine; and metabolic disorders (13 sources) Obese class I; Translations: [Obesity, unspecified] Onset: 01-15-2018 01-15-2018 Chronic Other screening for suspected conditions (not mental disorders or infectious disease) (1 source) Patient encounter status; Translations: [Encounter for screening for malignant neoplasm of colon] Episodic Spondylosis; intervertebral disc disorders; other back problems (12 sources) Prolapsed cervical intervertebral disc without myelopathy; Translations: [Other cervical disc displacement, unspecified cervical region] Onset: 12-10-2003 12-10-2003 Chronic Unclassified (1 source) Unknown / UNK(Unknown) Onset: 09-19-2017 Past or Other Problems Problem Classification Problem Date Documented Da te Episodic/Chronic Coronary atherosclerosis and other heart disease (1 source) Coronary atherosclerosis and other heart disease Onset: 09-19-2017 Diabetes mellitus without complication (12 sources) Impaired fasting glycemia; Translations: [Impaired fasting glucose] Onset: 07-15-2016 07-15-2016 Episodic Other and unspecified benign neoplasm (12 sources) Tubular adenoma of colon; Translations: [Benign neoplasm of colon, unspecified] Onset: 10-30-2014 10-30-2014 Episodic Other connective tissue disease (12 sources) Fibromyalgia; Translations: [Fibromyalgia] Onset: 12-10-2003 04-12-2016 Episodic Other gastrointestinal disorders (1 source) Constipation, unspecified; Translations: [Constipation, unspecified constipation type] Onset: 07-17-2017 Episodic Other lower respiratory disease (1 source) Other forms of dyspnea; Translations: [Other forms of dyspnea] Onset: 09-19-2017 Episodic Spondylosis; intervertebral disc disorders; other back problems (14 sources) Lumbosacral neuritis; Translations: [Radiculopathy, lumbosacral region] Onset: 07-28-2009 08-09-2021 Episodic Results Test Name Value Interpretation Reference Range Facil ity Vital Signs Date Time Vital Sign Value Performing Clinician Faci lity 11-18-2022 09:25-0400 Body height 177.8 cm Fredrick Titi PA-C Work Phone: [facility] 11-18-2022 09:25-0400 Body temperature 98.01 [degF] Fredrick Titi PA-C Work Phone: [facility] 11-18-2022 09:25-0400 Body weight 96.62 kg Fredrick Titi PA-C Work Phone: [facility] 11-18-2022 09:25-0400 Diastolic blood pressure 78 mm[Hg] Fredrick Pikeville PA-C Work Phone: [facility] 11-18-2022 09:25-0400 Heart rate 89 /min Fredrick Pikeville PA-C Work Phone: [facility] 11-18-2022 09:25-0400 SaO2% (BldA) [Mass fraction] 95 % Fredrick Titi PA-C Work Phone: [facility] 11-18-2022 09:25-0400 Systolic blood pressure 140 mm[Hg] Fredrick Pikeville PA-C Work Phone: [facility] 11-04-2022 11:02-0400 Body height 177.8 cm [facility] 1 Work Phone: [facility] 11-04-2022 11:02-0400 Body temperature 98.2 [degF] Pacc 1 Work Phone: [facility] 11-04-2022 11:02-0400 Body weight 99.34 kg Pacc 1 Work Phone: [facility] 11-04-2022 11:02-0400 Diastolic blood pressure 82 mm[Hg] Pacc 1 Work Phone: [facility] 11-04-2022 11:02-0400 Heart rate 69 /min Pacc 1 Work Phone: [facility] 11-04-2022 11:02-0400 Respiratory rate 14 /min Pacc 1 Work Phone: [facility] 11-04-2022 11:02-0400 SaO2% (BldA) [Mass fraction] 97 % Pacc 1 Work Phone: [facility] 11-04-2022 11:02-0400 Systolic blood pressure 132 mm[Hg] Pacc 1 Work Phone: [facility] 10-20-2022 08:49-0500 Body height 177.8 cm Leroy Alcocer MD Work Phone: [facility] 10-20-2022 08:49-0500 Body temperature 97.9 [degF] Leroy Alcocer MD Work Phone: [facility] 10-20-2022 08:49-0500 Body weight 100.25 kg Leroy Alcocer MD Work Phone: [facility] 10-20-2022 08:49-0500 Diastolic blood pressure 78 mm[Hg] Leroy Alcocer MD Work Phone: [facility] 10-20-2022 08:49-0500 Heart rate 80 /min Leroy Alcocer MD Work Phone: [facility] 10-20-2022 08:49-0500 Respiratory rate 12 /min Leroy Alcocer MD Work Phone: [facility] 10-20-2022 08:49-0500 SaO2% (BldA) [Mass fraction] 96 % Leroy Alcocer MD Work Phone: [facility] 10-20-2022 08:49-0500 Systolic blood pressure 122 mm[Hg] Leroy Alcocer MD Work Phone: [facility] 10-07-2022 15:25-0500 Body temperature 97.9 [degF] Fredrick Titi PA-C Work Phone: [facility] 10-07-2022 15:25-0500 Diastolic blood pressure 88 mm[Hg] Fredrick Pikeville PA-C Work Phone: [facility] 10-07-2022 15:25-0500 Heart rate 82 /min Fredrick Titi PA-C Work Phone: [facility] 10-07-2022 15:25-0500 SaO2% (BldA) [Mass fraction] 95 % Fredrick Pikeville PA-C Work Phone: [facility] 10-07-2022 15:25-0500 Systolic blood pressure 112 mm[Hg] Fredrick Titi PA-C Work Phone: [facility] 09-27-2022 11:00-0500 Diastolic blood pressure 67 mm[Hg] Leroy Alcocer MD Work Phone: [facility] 09-27-2022 11:00-0500 Heart rate 67 /min Leroy Alcocer MD Work Phone: [facility] 09-27-2022 11:00-0500 Respiratory rate 16 /min Leroy Alcocer MD Work Phone: [facility] 09-27-2022 11:00-0500 SaO2% (BldA) [Mass fraction] 93 % Leroy Alcocer MD Work Phone: [facility] 09-27-2022 11:00-0500 Systolic blood pressure 149 mm[Hg] Leroy Alcocer MD Work Phone: [facility] 09-27-2022 07:58-0500 Body temperature 97.39 [degF] Leroy Alcocer MD Work Phone: [facility] 09-27-2022 07:58-0500 Body weight 100.1 kg Leroy Alcocer MD Work Phone: [facility] 08-09-2022 13:11-0500 Body height 177.8 cm Fredrick Pikeville PA-C Work Phone: [facility] 08-09-2022 13:11-0500 Body temperature 97.2 [degF] Fredrick Pikeville PA-C Work Phone: [facility] 08-09-2022 13:11-0500 Body weight 100.06 kg Fredrick Pikeville PA-C Work Phone: [facility] 08-09-2022 13:11-0500 Diastolic blood pressure 76 mm[Hg] Fredrick Titi PA-C Work Phone: [facility] 08-09-2022 13:11-0500 Heart rate 82 /min Fredrick Titi PA-C Work Phone: [facility] 08-09-2022 13:11-0500 SaO2% (BldA) [Mass fraction] 97 % Fredrick Pikeville PA-C Work Phone: [facility] 08-09-2022 13:11-0500 Systolic blood pressure 108 mm[Hg] Fredrick Pikeville PA-C Work Phone: [facility] Encounters Encounter Date Encounter Type Care Provider Facility Start: 04-18-2023 Refill Leroy richardson MD Work Phone: General Surgery Procedures Date Procedure Procedure Detail Performing Clinician Start: 09-27-2022 Level iv surg pathology gross&microscopic exam Leroy Alcocer MD Work Phone: Start: 09-27-2022 Colonoscopy flx dx w/collj spec when pfrmd Fredrick Pikeville PA-C Work Phone: Start: 09-27-2022 Esophagogastroduodenoscopy transoral diagnostic Leroy Alcocer MD Work Phone: Start: 09-27-2022 Gluc bld gluc mntr dev cleared fda spec home use Leroy Alcocer MD Work Phone: Start: 09-27-2022 Colonoscopy Fredrick Walls PA-C Work Phone: Start: 06-21-2017 Colonoscopy Fredrick Walls PA-C Work Phone: Plan of Treatment Date Care Activity Detail Author Start: 09-27-2027 Colonoscopy COLONOSCOPY [facility] Start: 09-27-2027 COLORECTAL CANCER SCREENING COLORECTAL CANCER SCREENING [facility] Start: 04-14-2023 Covid-19 Vaccine () Covid-19 Vaccine () [facility] Start: 04-14-2023 Influenza vaccination [facility] Start: 08-14-2022 ADVANCE DIRECTIVE DISCUSSION ADVANCE DIRECTIVE DISCUSSION [facility] Start: 08-14-2022 DEPRESSION ASSESSMENT DEPRESSION ASSESSMENT [facility] Start: 06-21-2022 Colonoscopy COLONOSCOPY [facility] Start: 06-21-2022 COLORECTAL CANCER SCREENING COLORECTAL CANCER SCREENING [facility] Start: 04-14-2022 Influenza vaccination INFLUENZA (#1) [facility] Start: 07-10-2021 COVID-19 VACCINE (4 - Booster for Pfizer series) COVID-19 VACCINE (4 - Booster for Pfizer series) [facility] Start: 07-10-2021 COVID-19 VACCINE (4 - Pfizer series) COVID-19 VACCINE (4 - Pfizer series) [facility] Start: 04-17-2020 Hepatitis B screening URINE ALBUMIN:CREATININE RATIO [facility] Start: 04-09-2020 Hepatitis B surface antibody level LDL CHOLESTEROL [facility] Start: 03-20-2020 PNEUMOCOCCAL: 65+ (3 - PPSV23 if available, else PCV20) PNEUMOCOCCAL: 65+ (3 - PPSV23 if available, else PCV20) [facility] Start: 03-20-2020 PNEUMOCOCCAL: 65+ (3 - PPSV23 or PCV20) PNEUMOCOCCAL: 65+ (3 - PPSV23 or PCV20) [facility] Start: 01-28-2020 Shingrix Vaccine (2 of 2) Shingrix Vaccine (2 of 2) [facility] Start: 11-29-2019 Hepatitis C antibody, confirmatory test DILATED RETINAL EXAM [facility] Start: 11-22-2019 ANNUAL PCP TEAM CHRONIC DISEASE VISIT ANNUAL PCP TEAM CHRONIC DISEASE VISIT [facility] Start: 10-10-2019 Hemoglobin A1c/Hemoglobin.total in Blood HBA1C [facility] Start: 07-17-2019 3 comp foot exam completed DIABETIC FOOT EXAM [facility] Start: 2013 Hepatitis B Vaccine (1 of 3 - Risk 3-dose series) Hepatitis B Vaccine (1 of 3 - Risk 3-dose series) [facility] Start: 2013 RSV Vaccine (1 - 1-dose 60+ series) RSV Vaccine (1 - 1-dose 60+ series) [facility] Start: 03-08-2013 Urine microalbumin profile [facility] Start: 2003 SHINGRIX VACCINE (1 of 2) SHINGRIX VACCINE (1 of 2) [facility] Start: 1998 COLOGUARD (FIT-DNA) COLOGUARD (FIT-DNA) [facility] Start: [address] COLONOGRAPHY [facility] Start: 1998 FECAL OCCULT BLOOD FECAL OCCULT BLOOD [facility] Start: 1998 SIGMOIDOSCOPY SIGMOIDOSCOPY [facility] Start: 1983 Zoledronic acid therapy ALPHA-1 ANTITRYPSIN DEFICIENCY SCREENING [facility] Start: 1971 SPIROMETRY SPIROMETRY [facility] End: 09-16-2023 EGD DIAGNOSTIC EGD DIAGNOSTIC Endoscopy Routine Epigastric pain 1 Occurrences starting 09/16/2022 until 09/16/2023 [facility] Work Phone: Immunizations Immunization Date Immunization Notes Care Provider Fa chata 03-14-2022 influenza virus vacc ine, unspecified formulation Leroy Alcocer MD Work Phone: [facility] 07-17-2018 influenza, high dose seasonal, preservative-free Fredrickkranthi Walls PA-Real Work Phone: [facility] Work Phone: 07-17-2018 pneumococcal conjuga te vaccine, 13 valent Fredrickkranthi Walls PA-C Work Phone: [facility] Work Phone: 07-17-2017 influenza, injectabl e, quadrivalent, contains preservative Fredrick Walls PA-C Work Phone: [facility] 07-15-2016 influenza, injectabl e, quadrivalent, contains preservative Fredrick Pikeville PA-C Work Phone: [facility] 07-29-2015 influenza, injectabl e, quadrivalent, contains preservative Fredrick Titi PA-C Work Phone: [facility] Work Phone: 03-20-2015 pneumococcal polysaccharide vaccine, 23 valent Fredrick Pikeville PA-C Work Phone: [facility] 06-10-2014 influenza, seasonal, injectable Fredrick Pikeville PA-C Work Phone: [facility] 03-07-2013 tetanus and diphther ia toxoids, not adsorbed, for adult use Fredrick Pikeville PA-C Work Phone: [facility] 06-14-2012 influenza virus vacc ine, unspecified formulation Fredrick Titi PA-C Work Phone: [facility] 06-25-2010 influenza virus vacc ine, unspecified formulation Fredrick Pikeville PA-C Work Phone: [facility] 06-05-2009 influenza virus vacc ine, unspecified formulation Fredrick Titi PA-C Work Phone: [facility] Work Phone: 07-18-2007 influenza virus vacc ine, unspecified formulation Fredrick Titi PA-C Work Phone: [facility] Work Phone: 06-13-2006 influenza virus vacc ine, unspecified formulation Fredrick Titi PA-C Work Phone: [facility] Work Phone: Payers Date Payer Category Payer Medicare [id number] 2007 Medicare [employer] [place] [place] [id number] 2007-Present [phone] [address] [place] [address] HMO [id number] Social History Date Type Detail Facility Start: 10-13-2011 End: 09-27-2022 Tobacco smoking status NHIS Ex-smoker [facility] History of tobacco use Current smoker [facility] History of tobacco use Cigarette Smoker C [facility] Start: 10-13-2011 End: 09-27-2022 Tobacco use and exposure User of smokeless tobacco [facility] History of tobacco use [facility] Start: 08-09-2022 End: 09-28-2022 Alcohol intake Current drinker of alcohol (finding) [facility] Start: 08-09-2022 End: 08-28-2022 Alcohol intake [facility] Start: 06-20-2017 Alcohol Comment rarely [facility] Start: 1955 Sex Assigned At Not on file [facility] Start: 09-27-2022 Tobacco Comment snuff 1 can a week [facility] Start: 10-20-2022 End: 11-18-2022 Alcohol intake Ex-drinker (finding) [facility] Start: 10-20-2022 Tobacco Comment One can a week .States only smoked occasionally years ago. [facility] Start: 08-28-2022 End: 11-18-2022 Tobacco use panel [facility] Adult Depression Screening Assessment 0 [facility] Medical Equipment Procedure Code Equipment Code Equipment Origin al Text Equipment Identifier Dates Test blood sugar (s) one times daily. Dx: Type 2 DM - Controlled E11.9 Insulin: No Start: 07-17-2018 Clinical Notes 06-16-2017 to 11-18-2022 Patient InstructionsFredrick Walls PA-C - 11/18/2022 9:44 AM Socorro Lira RN - 11/18/2022 9:20 AM EDTTelephone Encounter - Carol Vega RN - 11/14/2022 4:33 PM EDTPatient Instructions Note Date & Type Note Facility 11-18-2022 Note HNO ID: [id number] Author: Fredrick Walls PA-C Service: ? Author Type: Physician [employer] Type: Progress Notes Filed: 11/22/2022 4:57 PM Note Text: FOLLOW UP VISIT - CHOLECYSTECTOMY NAME: Abdirizak Ch Bates [facility] NO.: [id number] DATE OF SERVICE: 11/18/2022 : 1955 REFERRING PHYSICIAN: Marshall Yousif MD Abdirizak is a patient I am following for a complaint of right upper quadrant pain. Dr. Alcocer performed a laparoscopic cholecystectomy with intraoperative cholangiogram on 11/11/22. Pathology showed chronic cholecystitis with cholelithiasis. The patient currently notes no major concerns. Patient did note episode of severe back pain on 11/14 for which he had ended up calling EMS-was taken to ED and diagnosed with muscle spasm. He was prescribed a muscle relaxer and is now feeling much better. His appetite has been good. he denies fever, chills or abdominal pain. he does note some mild incisional discomfort. VITALS: Blood pressure 140/78, pulse 89, temperature 36.7 ?C (98 ?F), height 177.8 cm (5' 10 ), weight 96.6 kg (213 lb), SpO2 95 %. On examination, the abdomen is benign. The incisions are healing well without signs of infection or inflammation. Assessment IMPRESSION: status post laparoscopic cholecystectomy with intraoperative cholangiogram PLAN: If the patient notes any problems, he should contact me immediately. he may return to his regular activities as tolerated, with the exception of no lifting greater than 20 pounds for the next 3 weeks. The patient is to contact me immediately is he experiences any of his preoperative symptoms. We discussed that occasional right up quadrant symptoms similar to the preoperative complaints can occur in the first couple of weeks post operatively. If this persists beyond the first 2-3 weeks, they should contact our office. Diagnoses: (K80.10) Calculus of gallbladder with chronic cholecystitis without obstruction (primary encounter diagnosis) Return to Clinic: The patient is instructed to follow-up with me as needed. Fredrick Walls PA-C [facility] 11-18-2022 Instructions Fredrick Walls PA-C - 11/18/2022 10:01 AM EDT The following instructions are important for you related to your office visit today with the [facility]. INSTRUCTIONS FOLLOWING YOU RECENT GALLBLADDER SURGERY You should be returning to your regular diet, If you have having persistent issues with tolerating your diet, please contact our office It is not unusual to have pain similar to your gallbladder symptoms for the first 1-2 weeks following surgery. If this persists beyond 2 weeks, contact the office. It is not unusual to have loose stools following surgery. This is usually self limited and related to the antibiotics that were given during your surgical procedure. Fiber supplementation and yogurt with active cultures may help you return to regular bowel activity. If you note loose stools persisting for over 2 weeks, or significant cramping or loose bloody stools, contact the office immediately. You may return to your regular activities. You may drive if you are no longer taking narcotic pain medication. You should perform no lifting greater than 20lbs for the next 3-4 weeks. Contact the office immediately if any of your incisions become increasingly tender, red or have drainage. Again, if you have any difficulties or concerns, contact our office immediately. If you note any additional difficulties, questions, or concerns, you should contact our office immediately @ [phone] and ask to be transferred to the General Surgery department. documented in this encounter [facility] 11-18-2022 History of Present illness Narrative FOLLOW UP VISIT - CHOLECYSTECTOMY NAME: Abdirizak Ch [facility] NO.: [id number] DATE OF SERVICE: 11/18/2022 : 1955 REFERRING PHYSICIAN: Marshall Yousif MD Abdirizak is a patient I am following for a complaint of right upper quadrant pain. Dr. Alcocer performed a laparoscopic cholecystectomy with intraoperative cholangiogram on 11/11/22. Pathology showed chronic cholecystitis with cholelithiasis. The patient currently notes no major concerns. Patient did note episode of severe back pain on 11/14 for which he had ended up calling EMS-was taken to ED and diagnosed with muscle spasm. He was prescribed a muscle relaxer and is now feeling much better. His appetite has been good. he denies fever, chills or abdominal pain. he does note some mild incisional discomfort. VITALS: Blood pressure 140/78, pulse 89, temperature 36.7 C (98 F), height 177.8 cm (5' 10 ), weight 96.6 kg (213 lb), SpO2 95 %. On examination, the abdomen is benign. The incisions are healing well without signs of infection or inflammation. Assessment IMPRESSION: status post laparoscopic cholecystectomy with intraoperative cholangiogram PLAN: If the patient notes any problems, he should contact me immediately. he may return to his regular activities as tolerated, with the exception of no lifting greater than 20 pounds for the next 3 weeks. The patient is to contact me immediately is he experiences any of his preoperative symptoms. We discussed that occasional right up quadrant symptoms similar to the preoperative complaints can occur in the first couple of weeks post operatively. If this persists beyond the first 2-3 weeks, they should contact our office. Diagnoses: (K80.10) Calculus of gallbladder with chronic cholecystitis without obstruction (primary encounter diagnosis) Return to Clinic: The patient is instructed to follow-up with me as needed. Fredrick Walls PA-C documented in this encounter [facility] 11-18-2022 Nurse Note REVIEW OF SYSTEMS: General: The patient denies fatigue, denies weight loss, denies weight gain, denies feeling hot, and denies feelings of cold. Eyes: The patient denies glaucoma, denies eye injury/surgery, does not wear glasses or contacts. Ear/Nose/Throat: The patient NOTES allergies, denies hayfever, denies ear infections, and denies bloody noses. Cardiovascular: The patient denies chest pain, NOTES heart disease, denies high blood pressure,denies cardiac stent, denies prior heart attack, denies irregular heart beat, NOTES high cholesterol, denies poor circulation, denies heart failure, other cardiac issues, denies claudication, denies cold feet, denies peripheral arterial stent. Respiratory: The patient denies tuberculosis, denies pneumonia, denies frequent cough, denies pulmonary embolism, NOTES shortness of breath, and denies coughing up blood. Gastrointestinal: The patient denies difficulty swallowing, denies acid reflux, denies ulcers, denies vomiting, denies jaundice/hepatitis, NOTES gallbladder problems, denies black or tarry stools, denies hemorrhoids, denies bleeding from rectum, denies diverticulitis, denies constipation, denies diarrhea, denies loss of stool control, and denies hernias. Kidney/Bladder: The patient denies kidney stones, denies urine infections, and denies bloody urine. Skin: The patient NOTES a history of skin cancer, denies bleeding/changing moles, and NOTES a history of skin rash. Neurologic: The patient denies a history of epilepsy/convulsions, notes headaches, denies head/spinal injuries, and denies stroke/TIA. Psychiatric: The patient denies psychiatric medications, denies depression, and denies voices, denies substance abuse. Endocrine: The patient denies thyroid disorders, NOTES diabetes, and denies hormonal problems. Hematologic: The patient denies a history of bruising, denies bleeding, and denies anemia, denies blood clots. Infections: The patient NOTES a history of measles and mumps, denies rheumatic fever, and denies sexually transmitted diseases. Musculoskeletal: The patient NOTES back pain/injury, NOTES back problems, NOTES sciatica, NOTES knee/foot trouble, denies arthritis, or denies gout. When was patient's last Mammogram screening? N/a Last Colonoscopy: 2022 Clara Lira RN documented in this encounter [facility] 11-14-2022 Miscellaneous Notes Patient was evaluated at [facility] ER, CT scan of the abdomen and pelvis was completed. Diagnosed with back spasm. Carol Vega RN Called patient back to updated. Alethea stated that she called 911 and ambulance was there. Yes, agree with urgent ED evaluation for severe abdominal pain Patient called back, patient is yelling in pain, advised patient to go to ER. Alethea asked if [facility] would treat patient, informed them yes they will however Dr Alcocer is not at that hospital and is doing surgeries in [place] today. voiced understanding. Alethea # [phone] Abdirizak's , Alethea, called. Abdirizak had laparoscopic cholecystectomy surgery on November 11. Today he is complaining of severe mid to lower back pain 04/23, his incisions sites hurt, he feels bloated and has not had a bowel movement since . He is taking the Percocet, but is not taking any ibuprofen between doses. He has taken 4 Linzess tablets, 2 laxative tablets and a dose of Miralax this morning. He states that he is not walking, because of the pain. They use [facility] in [place]. Alethea also wanted us to know that they tried reaching out, over the weekend to the provider number that is on their discharge paperwork, but that number is to [facility] and the medart operator refused to page Dr. Alcocer, stating that he does not work at their facility. I apologized to Alethea, stating that I would reach out and see who can update that paperwork and correct that error. Carol Vega RN documented in this encounter [facility] 11-11-2022 Note HNO ID: [id number] Author: Joni Crooks RN Service: Nursing Author Type: Registered Nurse Type: Nursing Progress Note Filed: 11/11/2022 12:59 PM Note Text: PT up to bathroom, ambulated with close supervision, tolerated well. 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 and patient Staffing Anesthesiologist: Evita Morillo MD SRNA: RONALD Unger Performed by: RONALD Indications and Patient Condition Indications for airway management: anesthesia Preoxygenated: yes anesthesia circuit Patient position: sniffing Method: asleep Cricoid Pressure: Yes Difficult Mask: No Final Airway Details Final airway type: endotracheal airway Final Endotracheal Airway: ETT Cuffed: yes Successful intubation technique: video laryngoscopy Devices used: Recio and intubating stylet Endotracheal tube insertion site: oral Blade: Serina Blade size: #4 ETT size (mm): 7.5 Measured from: lips Measurement (cm): 23 Placement verified by: chest auscultation and capnometry Cormack-Lehane Classification: grade IIa - partial view of glottis Number of attempts at approach: 1 Failed airway: no Unrecognized esophageal intubation: no Airway not difficult SIGNATURE: RONALD Unger PATIENT NAME: Abdirizak Bates DATE: November 11, 2022 TIME: 10:14 AM CSN: [id number] [facility] 11-09-2022 Miscellaneous Notes Received last office visit and cardiac testing from [facility]. Copy made for Angela Norris CNP and original sent to [facility]. Araceli Davis LPN Called and spoke with Katerina at [facility], she will fax last office visit and cardiac records. Araceli Davis LPN Received labs from Dr. Yousif's office. Copy made for Angela Norris CNP and original sent to [facility] through [facility]. Araceli Davis LPN Received a call from [facility] stating Dr. Mckeon office has moved and new phone number is [phone]. I called Dr. Linda craig office and spoke with Katrina. Requested labs especially A1c to be faxed, fax number given. Araceli Davis LPN Called and left message at Dr. Mathews office requesting patients most recent labs especially A1c to be faxed. Callback number and fax number given. Araceli Davis LPN Called and left message with Katerina at [facility] to return call. Callback number given. Araceli Davis LPN Please request most recent labs, especially A1c from PCP's office. And cardiac records, last OV from [facility]. DOS 11/11/2022 documented in this encounter [facility] 11-04-2022 History and physical note HISTORY AND PHYSICAL EXAMINATION SERVICE DATE: 11/04/2022 SERVICE TIME: 6:17 AM PRIMARY CARE PHYSICIAN: Marshall Yousif MD REASON FOR VISIT: Abdirizak Bates is a 67 year old male who is scheduled for Procedure(s): LAPAROSCOPIC CHOLECYSTECTOMY WITH GRAMS (N/A) at the request of Dr. Leroy Alcocer MD for consultation. My final recommendation will be communicated back to the requesting physician by way of shared medical record or letter. Subjective The patient has the following: ACTIVE PROBLEM LIST Displacement of Cervical Intervertebral [...] Complication, Without Long-Term Current Use of Insulin ([facility]) COVID-19 Immunization Status Overdue - COVID-19 VACCINE (4 - Booster for Pfizer series) Overdue since 07/10/2021 05/15/2021 Imm Admin: COVID-19 original vaccine, age 12+ yr, monovalent (PFIZER-BIONTECH - PURPLE TOP) 11/12/2020 Imm Admin: COVID-19 original vaccine, age 12+ yr, monovalent (PFIZER-BIONTECH - PURPLE TOP) 10/22/2020 Imm Admin: COVID-19 original vaccine, age 12+ yr, monovalent (PFIZER-BIONTECH - PURPLE TOP) CHIEF COMPLAINT: Pre-op exam HPI: Abdirizak Bates is a 67 year old seen for PAC due to scheduled above surgery because of gallstones. 10/20/2022, Dr. Alcocer HPI: Abdirizak is a 67 year old male with a complaint of abdominal pain.the patient was initially seen by Fredrick Walls in July 2022 for evaluation for screening colonoscopy. At that time she noted: The patient is a 67 year old male referred for endoscopy. Abdirizak notes a history of colon polyp and is due for surveillance colonoscopy. Patient denies any change in bowel habits, weight changes, blood in stools, black tarry stools or abdominal pain. Denies family history of colon issues. The patient notes no upper GI complaints. Abdirizak has undergone prior endoscopy. Last colonoscopy 06/20/[address] Alcocer under conscious sedation with removal of an adenomatous colon polyp, five year follow-up recommended. I was contacted by the patient's primary care physician Dr. Pedro that after being evaluated by Fredrick Walls the patient had an ER visit on September 12, 2022 for upper abdominal complaints. We added upper endoscopy to the planned colonoscopy. At that ER visit he had a CT scan which demonstrated diffuse gastric wall thickening scattered diverticula and a solitary gallstone. Emergency department noted that he had pain in the upper abdomen which radiates through to his back to the been present for 2 weeks. I performed upper and lower endoscopy on 09/27/22. Findings per operative report showed: - Normal examined jejunum. Biopsied. - Duodenitis. Biopsied. - Gastritis. Biopsied. - Non-severe reflux esophagitis with no bleeding. Biopsied. - Normal middle third of esophagus. Colonoscopy showed diverticulosis, otherwise normal Pathology demonstrated: FINAL DIAGNOSIS A. Jejunum, biopsy: -Small bowel mucosa with no diagnostic abnormality. B. Antrum, biopsy: -Antral mucosa with reactive gastropathy. -No morphologic evidence of H. pylori on routine stain. C. Esophagus, distal, biopsy: -Squamous epithelium with no diagnostic abnormality. D. Esophagus, MID, biopsy: -Squamous epithelium with no diagnostic abnormality. The patient was started on proton pump inhibitors and given a trial of Carafate. He noted improvement in his reflux but still noted no improvement in his upper abdominal complaints. He notes the upper abdominal symptoms consistent with a squeezing sensation REVIEW OF SYSTEMS: General: No weight loss, malaise or fevers. Neurological: No history of TIA's, stroke, COMPUTER PROJECT MANAGER tumor, impaired sensorium, hemiplegia, paraplegia or quadraplegia. No neurological symptoms or problems. Respiratory: Positive for: asthma and COPD. Negative for: pneumonia within 6 weeks, tobacco use, URI < 2 weeks and obstructive sleep apnea. Cardiovascular: Positive for: anticoagulation therapy (ASA), CAD, hyperlipidemia (on rx) and open heart surgery Negative for: arrhythmia, atrial fibrillation, chest pain, CHF, congenital heart defect, DVT/PE, hypertension, recent DC, murmur/valvular heart disease, PVD and valve surgery. GI: See HPI. Negative for: abdominal pain, dysphagia, GERD, hepatitis, irritable bowel syndrome, inflammatory bowel disease, liver disease, nausea, pancreatitis, vomiting and ETOH >2 drinks/day. : Positive for: BPH (no rx). Negative for: nephrolithiasis, renal failure and urinary tract infection. Endocrine: Positive for: diabetes mellitus. Patient's diabetes mellitus is controlled by oral agents. Negative for: hypothyroidism. Hematology: Positive for: chronic anti-coagulation/platelet meds. Patient is on anti-coagulation/platelet medication(s): Aspirin. Negative for: anemia, bruises/bleeds easily and transfusion of at least 4 units within 72 hours prior to surgery. Oncology: Skin cancer s/p excision Psych: No history of psychiatric symptoms or problems. Musculoskeletal: +h/o cervical fusion +h/o lumbar laminectomy Positive for: joint pain. Skin: +rosacea, following [facility] PAST MEDICAL HISTORY Diagnosis Date Asthma CAD (coronary artery disease) 09/04/2012 Calculus of gallbladder without cholecystitis without obstruction 07/15/2016 Cancer (HCC) Chronic airway obstruction, not elsewhere classified Diabetes (HCC) Diaphragmatic hernia without mention of obstruction or gangrene Hiatal hernia Displacement of cervical intervertebral disc without myelopathy 12/10/2003 Dysthymic disorder Depression (non-psychotic) Fibromyalgia 1999 Generalized osteoarthrosis, unspecified site GERD (gastroesophageal reflux disease) 06/28/2010 Hearing loss of both ears Wears hearing aids - bilateral Hemorrhoids, internal 06/16/2017 Added automatically from request for surgery [id number] Impaired fasting glucose 07/15/2016 Myalgia and myositis, unspecified Other and unspecified hyperlipidemia Other forms of migraine Other malaise and fatigue Other specified disease of hair and hair follicles Rosacea Snoring Temporomandibular joint disorders, unspecified Tubular adenoma of colon 10/30/2014 Unspecified constipation 06/28/2010 PAST SURGICAL HISTORY Procedure Laterality Date ARTHROSCOPY KNEE DIAGNOSTIC W/WO SYNOVIAL BX SPX 2021 BACK SURGERY HX CABG (3) VEIN GRAFTS & ARTERIAL GRAFT(S) 09/2011 Triple bypass COLONOSCOPY 09/27/2022 COLONOSCOPY FLX DX W/COLLJ SPEC WHEN PFRMD 07/06/2010 Normal COLONOSCOPY FLX DX W/COLLJ SPEC WHEN PFRMD 06/20/2017 Colonoscopy COLSC FLX W/RMVL OF TUMOR POLYP LESION SNARE TQ 10/07/2014 3 polyps - 2 proximal transverse, 1 distal transverse EGD 09/27/2022 EGD TRANSORAL BIOPSY SINGLE/MULTIPLE 07/06/2010 gastritis EGD TRANSORAL BIOPSY SINGLE/MULTIPLE 10/07/2014 duodenitis, gastritis, esophagitis EGD TRANSORAL BIOPSY SINGLE/MULTIPLE 09/13/2016 continued inflammation EYE SURGERY HX HEART SURGERY HX HEMORRHOIDECTOMY NTRNL & XTRNL 1 COLUMN/GROUP 2002 HERNIA REPAIR HX MEDELLIN FACETECTOMY & FORAMOTOMY 1 VRT SGM LUMBAR 2013 NEUROPLASTY &/TRANSPOS MEDIAN NRV CARPAL TUNNE Right 2000 Carpal tunnel decomp right NEUROPLASTY &/TRANSPOS MEDIAN NRV CARPAL TUNNE Right 11/2014 Carpal tunnel decomp RMVL LENS MATERIAL PHACOFRAGMENTATION ASPIR 1999, 2001 Cataract Extraction bilateral RPR 1ST INGUN HRNA AGE 5 YRS/> REDUCIBLE 2003 - left RPR 1ST INGUN HRNA AGE 5 YRS/> REDUCIBLE 2001 2 right RPR UMBILICAL HRNA 5 YRS/> REDUCIBLE 2003 with mesh SKIN BIOPSY HX SPINAL FUSION,ANT,EA ADNL LEVEL 2020 TONSILLECTOMY HX FAMILY HISTORY Problem Relation Age of Onset Diabetes Mother Hypertension Mother Heart Father emphysema Coronary Artery Disease Father Hypertension Father COPD Sister COPD Sister Hypertension Brother COPD Brother Emphysema Brother Heart Brother COPD Brother Diabetes Brother Emphysema Brother Coronary Artery Disease Brother COPD Brother Schizophrenia Son Paranoid other (disabilities) Son club foot Social History Tobacco Use Smoking status: Former Years: 25.00 Types: Cigarettes Smokeless tobacco: Current Types: Chew Tobacco comments: One can a week. States only smoked occasionally years ago. Vaping Use Vaping Use: Never used Substance Use Topics Alcohol use: Not Currently Comment: rarely Drug use: Never Prior to Admission medications as of 11/04/22 1141 Medication Sig Last Dose Taking omeprazole (PRILOSEC) 40 mg capsule Take 1 capsule by mouth once daily. Taking Yes sucralfate (CARAFATE) 1 gram tablet Take 1 tablet before meals and at bedtime as needed Taking Yes linaclotide (LINZESS ORAL) Take 72 mcg by mouth once daily as needed. Taking Yes Multivitamin capsule Take 1 capsule by mouth once daily. Taking Yes traZODone (DESYREL) 50 mg tablet Take 1-2 tablets by mouth daily at bedtime. Taking Yes metFORMIN (GLUCOPHAGE) 500 mg tablet Take 1 tablet by mouth twice daily with meals. Taking Yes baclofen (LIORESAL) 10 mg tablet Take 10 mg by mouth three times daily as needed. Taking Yes Blood-Glucose Meter (FREESTYLE LITE METER) monitoring kit Test blood sugar(s) one times daily. Dx: Type 2 DM - Controlled E11.9 Insulin: No Taking Yes atorvastatin (LIPITOR) 80 mg tablet Take 1 tablet by mouth daily at bedtime. Taking Yes Lancets lancets Test blood sugar(s) one times daily. Dx: Type 2 DM - Controlled E11.9 Insulin: No Taking Yes blood sugar diagnostic (BLOOD GLUCOSE TEST) test strip Test blood sugar(s) one times daily. Dx: Type 2 DM - Controlled E11.9 Insulin: No Taking Yes gabapentin (NEURONTIN) 300 mg capsule Take 1 capsule by mouth twice daily. Prescribed by pain management. Taking Yes albuterol HFA (VENTOLIN HFA) 90 mcg/actuation inhaler Inhale 2 Puffs as instructed every 4 hours as needed for Wheezing/Shortness of Breath. Taking Yes aspirin, enteric coated (ASPIRIN, ENTERIC COATED) 81 mg EC tablet Take 1 tablet by mouth once daily. Taking Yes No medication comments found. ALLERGIES Allergen Reactions Adhesive Tape (Maria Eugenia* Itching Contrast Dye possible Fd And C Blue No.1 Sertraline zoloft, hot, elevated BP Objective PHYSICAL EXAM: General: alert and oriented (x3), healthy appearance and obese. Pertinent negatives noted - not distressed. Skin: normal color, no rash or lesions. HEENT: EOM intact and pupils equal round. Pertinent negatives noted - no carotid bruit. Cardiovascular: regular rate and rhythm, normal S1 and S2, no rub, murmurs, or gallop. Respiratory: normal breath sounds, no wheezes or crackles. No chest wall deformity or tenderness. Abdomen: soft. Pertinent negatives noted - not tender. Extremities: no deformity, no edema or tenderness, no joint swelling or clubbing. Neurological: normal cognition and motor skills. Gait normal. No weakness or sensory deficit. PAIN ASSESSMENT: Pain Pain Level: 3 Pain Location: Abdomen Description: Aching, Pressure Duration Amount of Time: 2 Duration Units: Months Frequency: Continuous Intervention/Comfort measure: Other: See comment Comments: Does not eat VITALS: BP 132/82 Pulse 69 Temp (Src) 98.2 (Temporal) Resp 14 Ht 5' 10 (1.78m) Wt 219 lb (99.3kg) SpO2 97% BMI 31.42 kg/(m^2). Diagnostic tests reviewed for today's visit: Lab Value Units Date High Low HB No results within date range. HCT No results within date range. WBC No results within date range. PLT No results within date range. NA No results within date range. K No results within date range. GLUC No results within date range. BUN No results within date range. CREAT No results within date range. PTSEC No results within date range. INR No results within date range. APTT No results within date range. ALT No results within date range. AST No results within date range. TBILI No results within date range. TSH No results within date range. Lab Value Units Date High Low HCGQT No results within date range. UHCG No results within date range. HCG, BODY* No results within date range. Lab Value Units Date High Low ABORHD No results within date range. ABSCREEN No results within date range. Hemoglobin A1C Date Value 04/09/2019 Test sent to [facility]. % 11/05/2018 Test sent to [facility]. % 06/28/2018 Test sent to [facility]. % 07/17/2017 Test sent to [facility]. % 06/23/2016 Test sent to [facility]. % 06/23/2016 6.1 No results found for this or any previous visit (from the past 8760 hour(s)). No results found for this or any previous visit (from the past 45284 hour(s)). Assessment Patient has the following medical conditions which may affect nereida-operative course: Other hyperlipidemia Assessment: c/w statin CAD (coronary artery disease) Assessment: CABG x2011, following [facility], daily ASA, denies CP, palpitations or SOB, records requested BPH with obstruction/lower urinary tract symptoms Assessment: no tx Controlled type 2 diabetes mellitus without complication, without long-term current use of insulin (HCC) Assessment: controlled on oral agent, recent A1c requested from PCP's office COPD with chronic bronchitis (HCC) Assessment: and asthma, rx as needed, former smoker, vague hx given Gastroesophageal reflux disease with esophagitis Assessment: controlled on rx Hearing loss of both ears Assessment: bilateral hearing aides Obesity, Class I, BMI 30-34.9 Assessment: Body mass index is 31.42 kg/m . Landry Activity Status Index: METS: Climb a flight of stairs or walk up a hill (5.50 METs) DASI Score: 5.5 Patient denies any chest pain or undue shortness of breath with the above physical activity. Clinical Frailty Scale: 3. Well, with treated comorbid disease STOP-Bang Score: Has or is being treated for high blood pressure Patient over 50 years old Has a large neck Male patient Denies snoring loudly Denies feeling tired, fatigued, or sleepy during the daytime Has not been observed to stop breathing or choking/gasping during sleep BMI less than or equal to 35 kg/m^2 STOP-Bang Score: 4 [id number] Score: Age: 65-74 Sex: male CHF history: No Hypertension history: Yes Stroke/TIA/thromboembolism history: No Vascular disease history: Yes Diabetes history: Yes [id number] Score: 4 ARISCAT Score: Age: 51-80 Preoperative SpO2: >=96% Respiratory infection in the last month: No Preoperative anemia: Yes Surgical incision: peripheral Duration of surgery: <2 hrs Emergency procedure: No ARISCAT Score: 14 ASA Class: 3 ANESTHESIA FINDINGS: Intubation History: No history of difficult intubation Significant Anesthesia Considerations: none Airway History: No history of difficult airway I - PHYSICAL EVALUATION AIRWAY Patient intubated: No. Tracheostomy tube not present Mallampati: II. TM distance: >3 FB. Neck ROM: limited flexion and extension. Mouth opening: adequate. Short neck: no. Thick neck: yes Negron present: no Lip Bite Test: II Microretrognathia/Micronagthia/Re cessed Chin: No DENTAL Dental findings: teeth intact. II - ANESTHESIA PLAN ASA Score: 3 Anesthetic Plan: other Anesthetic plan additional comments: *PACC/TCI - anesthesia choice. Beta Von Monitoring Plan Post Procedure Analgesic Plan Informed Consent Anesthetic risks, benefits, alternatives, personnel and consent discussed: yes. Patient / Responsible Alliance Party agrees to proceed: yes Patient / Surrogate agrees to blood products: blood products not planned Prepared for Surgery: optimally prepared for surgery. Recent labs requested from PCP's office and cardiac records CONSULTS: Patient does not require consults for optimization at this time Planned Anesthetic: other anesthesia choice The Following Tests/Procedures Have Been Initiated: No orders of the defined types were placed in this encounter. Instructions Given to Patient: Instructions located in the after visit summary. Patient given verbal and written preop instructions and voices comprehension and compliance. SIGNATURE: Angela Norris APRN.CNP PATIENT NAME: Abdirizak Bates DATE: November 04, 2022 TIME: 11:15 AM PAGER/CONTACT #: documented in this encounter [facility] 11-04-2022 Instructions Angela Norris APRN.CNP - 11/04/2022 11:12 AM EDT PATIENT PREOPERATIVE INSTRUCTIONS No ref. provider found has scheduled you for your procedure at this surgery center: [facility]: [phone] -- [address] [place] [id number]. Please read below carefully for your personalized instructions. Dietary Restrictions: - No solid food after midnight. - You may have 12 ounces of clear liquids (water, clear juices such as apple juice or gatorade, carbonated beverages, clear tea, black coffee, jello) until 2 hours before scheduled arrival at facility. No red/purple coloring and no creamer/sugar Medications: Unless instructed differently below, stay on all of your medications until your surgery. Approved medications to take the morning of surgery with a sip of water: albuterol (PROAIR) inhaler, atorvastatin (LIPITOR), gabapentin (NEURONTIN), omeprazole (PRILOSEC) Do not take Metformin the morning and/or evening prior surgery If you take any medications for erectile dysfunction-Cialis (Tadalafil), Levitra, Staxyn (Vardenafil) Viagra (Sildenenafil please do not take these for 48 hours before surgery. If you start any new medications after today's visit, please contact the surgeon's office. Blood Thinning Medications: - Stop NSAIDS (Ibuprofen, Advil, Aleve, Motrin, Celebrex, Mobic, etc.) 7 days before surgery, as directed by your surgeon. - Stop Aspirin 7 days before surgery, as directed by your surgeon. - Stop Vitamin E, ALL multi-vitamins, herbals and dietary supplements 7 days before surgery. - You may take Tylenol (Acetaminophen) or any of your pain medications that do not contain aspirin or NSAIDS as needed. Important Reminders: - Candy, mints, gum and tobacco products are NOT permitted the morning of surgery. - Hearing aids, dentures and glasses may be worn the morning of surgery. - NO jewelry, body piercings, makeup, hairpins or contacts are to be worn the day of surgery. If you develop symptoms such as a fever, cold, or flu, or have other changes to your health within TWO DAYS of scheduled surgery or the morning of surgery, please contact the surgery center above. Personal Belongings: -Please have photo ID and insurance cards. -If you do not have a copy of advance directives on file with us, please bring a copy with you on the day of surgery. - Leave ALL valuables and money at home or with family members. For Outpatient Procedures: - YOU MUST HAVE A RESPONSIBLE ACCOUNTING OFFICER TAKE YOU HOME. A PAVING BLOCK CUTTER OR CRYOGENICS REPAIRER CANNOT BE MADE A RESPONSIBLE ACCOUNTING OFFICER. - We recommend that a responsible person stays with you overnight to take care of you. - You cannot stay in a hotel alone after outpatient surgery. You will not be permitted to have your surgery, if you do not have someone to take care of you. Arrival Time for Surgery: - The Surgery Center or hospital where you are having surgery will call the afternoon before surgery (or Monday for Monday surgery) with a scheduled arrival time. - If you have not heard by 4 pm, please contact the surgery center above. Please be aware that emergency situations arise, which may delay or change your surgical time. If this happens, we will notify you as soon as possible and regret any inconvenience. If you already have an Advance Directive, please fax a copy to [phone] or email to for it to be added to your chart. If you do not have an Advance Directive, you can find the appropriate form and more information at [email or web address]. We recommend that you complete the Advance Directive form found on the website and bring it with you the day of your surgery. It can be witnessed and scanned into your chart that day. Angela Norris APRN.CNP documented in this encounter [facility] 10-21-2022 Note HNO ID: [id number] Author: Leroy Alcocer MD Service: ? Author Type: Physician Type: Progress Notes Filed: 10/28/2022 6:18 AM Note Text: HISTORY AND PHYSICAL Abdirizak Bates 1955 REFERRING PHYSICIAN: Dr. Yousif CHIEF COMPLAINT: Abdominal Pain HPI: Abdirizak is a 67 year old male with a complaint of abdominal pain.the patient was initially seen by Fredrick Walls in July 2022 for evaluation for screening colonoscopy. At that time she noted: The patient is a 67 year old male referred for endoscopy. Abdirizak notes a history of colon polyp and is due for surveillance colonoscopy. Patient denies any change in bowel habits, weight changes, blood in stools, black tarry stools or abdominal pain. Denies family history of colon issues. The patient notes no upper GI complaints. Abdirizak has undergone prior endoscopy. Last colonoscopy 06/20/[address] Alcocer under conscious sedation with removal of an adenomatous colon polyp, five year follow-up recommended. I was contacted by the patient's primary care physician Dr. Pedro that after being evaluated by Fredrick Walls the patient had an ER visit on September 12, 2022 for upper abdominal complaints. We added upper endoscopy to the planned colonoscopy. At that ER visit he had a CT scan which demonstrated diffuse gastric wall thickening scattered diverticula and a solitary gallstone. Emergency department noted that he had pain in the upper abdomen which radiates through to his back to the been present for 2 weeks. I performed upper and lower endoscopy on 09/27/22. Findings per operative report showed: - Normal examined jejunum. Biopsied. - Duodenitis. Biopsied. - Gastritis. Biopsied. - Non-severe reflux esophagitis with no bleeding. Biopsied. - Normal middle third of esophagus. Colonoscopy showed diverticulosis, otherwise normal Pathology demonstrated: FINAL DIAGNOSIS A. Jejunum, biopsy: -Small bowel mucosa with no diagnostic abnormality. B. Antrum, biopsy: -Antral mucosa with reactive gastropathy. -No morphologic evidence of H. pylori on routine stain. C. Esophagus, distal, biopsy: -Squamous epithelium with no diagnostic abnormality. D. Esophagus, MID, biopsy: -Squamous epithelium with no diagnostic abnormality. The patient was started on proton pump inhibitors and given a trial of Carafate. He noted improvement in his reflux but still noted no improvement in his upper abdominal complaints. He notes the upper abdominal symptoms consistent with a squeezing sensation SIGNIFICANT MEDICAL PROBLEMS: PAST MEDICAL HISTORY Diagnosis Date Asthma CAD (coronary artery disease) 09/04/2012 Calculus of gallbladder without cholecystitis without obstruction 07/15/2016 Cancer (HCC) Chronic airway obstruction, not elsewhere classified Diabetes (HCC) Diaphragmatic hernia without mention of obstruction or gangrene Hiatal hernia Displacement of cervical intervertebral disc without myelopathy 12/10/2003 Dysthymic disorder Depression (non-psychotic) Fibromyalgia 1999 Generalized osteoarthrosis, unspecified site GERD (gastroesophageal reflux disease) 06/28/2010 Hearing loss of both ears Wears hearing aids - bilateral Hemorrhoids, internal 06/16/2017 Added automatically from request for surgery [id number] Impaired fasting glucose 07/15/2016 Myalgia and myositis, unspecified Other and unspecified hyperlipidemia Other forms of migraine Other malaise and fatigue Other specified disease of hair and hair follicles Rosacea Snoring Temporomandibular joint disorders, unspecified Tubular adenoma of colon 10/30/2014 Unspecified constipation 06/28/2010 OPERATIONS: PAST SURGICAL HISTORY Procedure Laterality Date ARTHROSCOPY KNEE DIAGNOSTIC W/WO SYNOVIAL BX SPX 2021 BACK SURGERY HX CABG (3) VEIN GRAFTS AND ARTERIAL GRAFT(S) 09/2011 Triple bypass COLONOSCOPY 09/27/2022 COLONOSCOPY FLX DX W/COLLJ SPEC WHEN PFRMD 07/06/2010 Normal COLONOSCOPY FLX DX W/COLLJ SPEC WHEN PFRMD 06/20/2017 Colonoscopy COLSC FLX W/RMVL OF TUMOR POLYP LESION SNARE TQ 10/07/2014 3 polyps - 2 proximal transverse, 1 distal transverse EGD 09/27/2022 EGD TRANSORAL BIOPSY SINGLE/MULTIPLE 07/06/2010 gastritis EGD TRANSORAL BIOPSY SINGLE/MULTIPLE 10/07/2014 duodenitis, gastritis, esophagitis EGD TRANSORAL BIOPSY SINGLE/MULTIPLE 09/13/2016 continued inflammation EYE SURGERY HX HEART SURGERY HX HEMORRHOIDECTOMY NTRNL AND XTRNL 1 COLUMN/GROUP 2002 HERNIA REPAIR HX MEDELLIN FACETECTOMY AND FORAMOTOMY 1 VRT SGM LUMBAR 2013 NEUROPLASTY AND/TRANSPOS MEDIAN NRV CARPAL TUNNE Right 2000 Carpal tunnel decomp right NEUROPLASTY AND/TRANSPOS MEDIAN NRV CARPAL TUNNE Right 11/2014 Carpal tunnel decomp RMVL LENS MATERIAL PHACOFRAGMENTATION ASPIR 1999, 2001 Cataract Extraction bilateral RPR 1ST INGUN HRNA AGE 5 YRS/> REDUCIBLE 2003 - left RPR 1ST INGUN HRNA AGE 5 YRS/> REDUCIBLE 2001 2 right RPR UMBILICAL HRNA 5 YRS/> REDUCIBLE 2 (more content not included)... [facility] 10-21-2022 History of Present illness Narrative HISTORY AND PHYSICAL Abdirizak Ch Paulo 1955 REFERRING PHYSICIAN: Dr. Yousif CHIEF COMPLAINT: Abdominal Pain HPI: Abdirizak is a 67 year old male with a complaint of abdominal pain.the patient was initially seen by Fredrick Walls in July 2022 for evaluation for screening colonoscopy. At that time she noted: The patient is a 67 year old male referred for endoscopy. Abdirizak notes a history of colon polyp and is due for surveillance colonoscopy. Patient denies any change in bowel habits, weight changes, blood in stools, black tarry stools or abdominal pain. Denies family history of colon issues. The patient notes no upper GI complaints. Abdirizak has undergone prior endoscopy. Last colonoscopy 06/20/[address] Alcocer under conscious sedation with removal of an adenomatous colon polyp, five year follow-up recommended. I was contacted by the patient's primary care physician Dr. Pedro that after being evaluated by Fredrick Walls the patient had an ER visit on September 12, 2022 for upper abdominal complaints. We added upper endoscopy to the planned colonoscopy. At that ER visit he had a CT scan which demonstrated diffuse gastric wall thickening scattered diverticula and a solitary gallstone. Emergency department noted that he had pain in the upper abdomen which radiates through to his back to the been present for 2 weeks. I performed upper and lower endoscopy on 09/27/22. Findings per operative report showed: - Normal examined jejunum. Biopsied. - Duodenitis. Biopsied. - Gastritis. Biopsied. - Non-severe reflux esophagitis with no bleeding. Biopsied. - Normal middle third of esophagus. Colonoscopy showed diverticulosis, otherwise normal Pathology demonstrated: FINAL DIAGNOSIS A. Jejunum, biopsy: -Small bowel mucosa with no diagnostic abnormality. B. Antrum, biopsy: -Antral mucosa with reactive gastropathy. -No morphologic evidence of H. pylori on routine stain. C. Esophagus, distal, biopsy: -Squamous epithelium with no diagnostic abnormality. D. Esophagus, MID, biopsy: -Squamous epithelium with no diagnostic abnormality. The patient was started on proton pump inhibitors and given a trial of Carafate. He noted improvement in his reflux but still noted no improvement in his upper abdominal complaints. He notes the upper abdominal symptoms consistent with a squeezing sensation SIGNIFICANT MEDICAL PROBLEMS: PAST MEDICAL HISTORY Diagnosis Date Asthma CAD (coronary artery disease) 09/04/2012 Calculus of gallbladder without cholecystitis without obstruction 07/15/2016 Cancer (HCC) Chronic airway obstruction, not elsewhere classified Diabetes (HCC) Diaphragmatic hernia without mention of obstruction or gangrene Hiatal hernia Displacement of cervical intervertebral disc without myelopathy 12/10/2003 Dysthymic disorder Depression (non-psychotic) Fibromyalgia 1999 Generalized osteoarthrosis, unspecified site GERD (gastroesophageal reflux disease) 06/28/2010 Hearing loss of both ears Wears hearing aids - bilateral Hemorrhoids, internal 06/16/2017 Added automatically from request for surgery [id number] Impaired fasting glucose 07/15/2016 Myalgia and myositis, unspecified Other and unspecified hyperlipidemia Other forms of migraine Other malaise and fatigue Other specified disease of hair and hair follicles Rosacea Snoring Temporomandibular joint disorders, unspecified Tubular adenoma of colon 10/30/2014 Unspecified constipation 06/28/2010 OPERATIONS: PAST SURGICAL HISTORY Procedure Laterality Date ARTHROSCOPY KNEE DIAGNOSTIC W/WO SYNOVIAL BX SPX 2021 BACK SURGERY HX CABG (3) VEIN GRAFTS & ARTERIAL GRAFT(S) 09/2011 Triple bypass COLONOSCOPY 09/27/2022 COLONOSCOPY FLX DX W/COLLJ SPEC WHEN PFRMD 07/06/2010 Normal COLONOSCOPY FLX DX W/COLLJ SPEC WHEN PFRMD 06/20/2017 Colonoscopy COLSC FLX W/RMVL OF TUMOR POLYP LESION SNARE TQ 10/07/2014 3 polyps - 2 proximal transverse, 1 distal transverse EGD 09/27/2022 EGD TRANSORAL BIOPSY SINGLE/MULTIPLE 07/06/2010 gastritis EGD TRANSORAL BIOPSY SINGLE/MULTIPLE 10/07/2014 duodenitis, gastritis, esophagitis EGD TRANSORAL BIOPSY SINGLE/MULTIPLE 09/13/2016 continued inflammation EYE SURGERY HX HEART SURGERY HX HEMORRHOIDECTOMY NTRNL & XTRNL 1 COLUMN/GROUP 2002 HERNIA REPAIR HX MEDELLIN FACETECTOMY & FORAMOTOMY 1 VRT SGM LUMBAR 2013 NEUROPLASTY &/TRANSPOS MEDIAN NRV CARPAL TUNNE Right 2000 Carpal tunnel decomp right NEUROPLASTY &/TRANSPOS MEDIAN NRV CARPAL TUNNE Right 11/2014 Carpal tunnel decomp RMVL LENS MATERIAL PHACOFRAGMENTATION ASPIR 1999, 2001 Cataract Extraction bilateral RPR 1ST INGUN HRNA AGE 5 YRS/> REDUCIBLE 2003 - left RPR 1ST INGUN HRNA AGE 5 YRS/> REDUCIBLE 2001 2 right RPR UMBILICAL HRNA 5 YRS/> REDUCIBLE 2003 with mesh SKIN BIOPSY HX SPINAL FUSION,ANT,EA ADNL LEVEL 2020 TONSILLECTOMY HX CURRENT MEDICATIONS: Current Outpatient Medications Medication Sig Dispense Refill sucralfate (CARAFATE) 1 gram tablet Take 1 tablet before meals and at bedtime as needed 100 tablet 1 linaclotide (LINZESS ORAL) Take 72 mcg by mouth once daily as needed. Multivitamin capsule Take 1 capsule by mouth once daily. traZODone (DESYREL) 50 mg tablet Take 1-2 tablets by mouth daily at bedtime. 180 tablet 1 metFORMIN (GLUCOPHAGE) 500 mg tablet Take 1 tablet by mouth twice daily with meals. 60 tablet 5 baclofen (LIORESAL) 10 mg tablet Take 10 mg by mouth three times daily as needed. Blood-Glucose Meter (FREESTYLE LITE METER) monitoring kit Test blood sugar(s) one times daily. Dx: Type 2 DM - Controlled E11.9 Insulin: No 1 Each 0 atorvastatin (LIPITOR) 80 mg tablet Take 1 tablet by mouth daily at bedtime. 90 tablet 3 Lancets lancets Test blood sugar(s) one times daily. Dx: Type 2 DM - Controlled E11.9 Insulin: No 100 Each 5 blood sugar diagnostic (BLOOD GLUCOSE TEST) test strip Test blood sugar(s) one times daily. Dx: Type 2 DM - Controlled E11.9 Insulin: No 50 Strip 5 gabapentin (NEURONTIN) 300 mg capsule Take 1 capsule by mouth twice daily. Prescribed by pain management. albuterol HFA (VENTOLIN HFA) 90 mcg/actuation inhaler Inhale 2 Puffs as instructed every 4 hours as needed for Wheezing/Shortness of Breath. 1 Inhaler 5 aspirin, enteric coated (ASPIRIN, ENTERIC COATED) 81 mg EC tablet Take 1 tablet by mouth once daily. 0 omeprazole (PRILOSEC) 40 mg capsule Take 1 capsule by mouth once daily. 30 capsule 2 naproxen-diphenhydrAMINE 220-25 mg tab Take 220 mg by mouth once daily as needed. (Patient not taking: Reported on 10/20/2022) Ascorbic Acid (VITAMIN C) 100 mg tablet Take 100 mg by mouth once daily. (Patient not taking: Reported on 10/20/2022) cholecalciferol, vitamin D3, 10 mcg (400 unit) cap Take 400 Units by mouth once daily. (Patient not taking: Reported on 10/20/2022) fluticasone (FLONASE) 50 mcg/actuation nasal spray Use 2 Sprays in each nostril once daily. (Patient not taking: No sig reported) 1 Bottle 5 tamsulosin ER (FLOMAX) 0.4 mg cap Take 1 capsule by mouth daily at bedtime. (Patient not taking: No sig reported) 30 capsule 11 calcium Carbonate 300 mg, 750mg, (TUMS) 300 mg (750 mg) chewable tablet Take 1 tablet by mouth as needed (heartburn). (Patient not taking: Reported on 10/20/2022) HYDROcodone-acetaminophen 5-325 mg per tablet Take 1 tablet by mouth every 6 hours as needed. (Patient not taking: Reported on 10/20/2022) 60 tablet 0 No current facility-administered medications for this visit. ALLERGIES: Adhesive Tape (Rosins), Contrast Dye, Fd And C Blue No.1, and Sertraline PERSONAL HISTORY: Social History Tobacco Use Smoking status: Former Years: 25.00 Types: Cigarettes Smokeless tobacco: Current Types: Chew Tobacco comments: One can a week. States only smoked occasionally years ago. Vaping Use Vaping Use: Never used Substance Use Topics Alcohol use: Not Currently Comment: rarely Drug use: Never FAMILY HISTORY: FAMILY HISTORY Problem Relation Age of Onset Diabetes Mother Hypertension Mother Heart Father emphysema Coronary Artery Disease Father Hypertension Father COPD Sister COPD Sister Hypertension Brother COPD Brother Emphysema Brother Heart Brother COPD Brother Diabetes Brother Emphysema Brother Coronary Artery Disease Brother COPD Brother Schizophrenia Son Paranoid other (disabilities) Son club foot REVIEW OF SYMPTOMS: negative except as noted above PHYSICAL EXAMINATION: General: The patient is 67 year old male, well nourished, well hydrated in no acute distress. The patient is oriented to time, place, and person. VITALS: Blood pressure 122/78, pulse 80, temperature 36.6 C (97.9 F), temperature source Temporal, resp. rate 12, height 177.8 cm (5' 10 ), weight 100.2 kg (221 lb), SpO2 96 %. Body mass index is 31.71 kg/m . HEENT: Normal cephalic, ataumatic, pupils are equally round, sclera are anicteric, mucous membranes are moist, oropharynx is clear. Neck has no masses, asymmetry or lymphadenopathy. Thyroid is unremarkable. Respiratory: Clear to auscultation and percussion. Normal respiratory excursion and pattern. Cardiac: Examination is regular rate and rhythm. Abdominal exam: Normoactive bowel sounds, Soft, non tender in the right upper quadrant negative Streeter's sign, with no palpable masses. No hepatosplenomegaly. No palpable hernias. Rectal exam: exam deferred Extremities: no clubbing, cyanosis or edema. No adenopathy. Other: LABORATORY VALUES: As Noted RADIOLOGIC STUDIES: As Noted Above Assessment IMPRESSION: Cholelithiasis, upper abdominal pain, failure to improve on PPIs -ET scan did demonstrate cholelithiasis PLAN: My plan is to perform a laparoscopic cholecystectomy with intraoperative choleangiogram. The planned surgical procedure was discussed extensively with the patient. The risks, benefits, anticipated outcomes and possible complications were mentioned. My staff has also explained the procedure in understandable terms and the patient was given the option to take printed material concerning the planned procedure. The patient had the opportunity to ask questions concerning the planned procedure. The patient freely consents to the planned procedure. Planned Procedure: LAPAROSCOPIC CHOLECYSTECTOMY WITH INTRAOPERATIVE CHOLEANGIOGRAM - [id number] Planned antibiotic: Ancef 2gm IVPB on air announcer to OR SCDs needed - Yes Railroad Supervisor Of Engines Needed - No Diagnoses: (K80.20) Calculus of gallbladder without cholecystitis without obstruction (primary encounter diagnosis) (R10.11) RUQ pain My findings have been communicated to via shared medical record. This note will be forwarded to No primary care provider on file.. Leroy Alcocer MD documented in this encounter [facility] 10-20-2022 Miscellaneous Notes Called and spoke to [facility], CT scan dept. Pushed image per Dr Alcocer request. Lilliam Cota LPN documented in this encounter [facility] 10-07-2022 Note HNO ID: [id number] Author: Fredrick Walls PA-C Service: ? Author Type: Physician [employer] Type: Progress Notes Filed: 10/13/2022 2:07 PM Note Text: FOLLOW UP VISIT - ENDOSCOPY NAME: Abdirizak Bates [facility] NO.: [id number] DATE OF SERVICE: 10/07/2022 : 1955 REFERRING PHYSICIAN: No primary care provider on file. Abdirizak is a patient I am following for colon polyps and need for surveillance colonoscopy. In interim since patient's consult visit, was seen by PCP and had EGD ordered for upper GI complaints . Dr. Alcocer performed upper and lower endoscopy on 09/27/22. Findings per operative report showed: - Normal examined jejunum. Biopsied. - Duodenitis. Biopsied. - Gastritis. Biopsied. - Non-severe reflux esophagitis with no bleeding. Biopsied. - Normal middle third of esophagus. Colonoscopy showed diverticulosis, otherwise normal Pathology demonstrated: FINAL DIAGNOSIS A. Jejunum, biopsy: -Small bowel mucosa with no diagnostic abnormality. B. Antrum, biopsy: -Antral mucosa with reactive gastropathy. -No morphologic evidence of H. pylori on routine stain. C. Esophagus, distal, biopsy: -Squamous epithelium with no diagnostic abnormality. D. Esophagus, MID, biopsy: -Squamous epithelium with no diagnostic abnormality. The patient notes no new complaints since the procedure. VITALS: Blood pressure 112/88, pulse 82, temperature 36.6 ?C (97.9 ?F), SpO2 95 %. General: patient is alert, cooperative, pleasant and in no acute distress On examination, the abdomen is benign. Assessment IMPRESSION: normal colonoscopy, history of prior adenomatous polyp PLAN: The operative findings and pathology report were reviewed with the patient, and the patient has had the opportunity to ask questions and have questions answered. If the patient notes any problems or changes in bowel function, the patient should contact me immediately. Otherwise I recommend follow up colonoscopy in 5 years based on prior history of adenomatous polyp. HM updated and recall letter generated. Short-term treatment with PPI and trial of carafate, in addition to dietary and lifestyle modifications as discussed If symptoms persist despite above measures after another 3-4 weeks, recommend following up with surgeon to discuss possible gallbladder workup Patient verbalized understanding of all above and agreed with the plan Diagnoses: (K57.90) Diverticulosis (primary encounter diagnosis) (Z86.010) History of colonic polyps (K29.90) Gastritis and duodenitis I spent a total of 24 minutes on the date of the service which included preparing to see the patient, [id number] patient care, completing clinical documentation, obtaining and/or reviewing separately obtained history, counseling and educating the patient/family/caregiver, independently interpreting results (not separately reported), and communicating results to the patient/family/caregiver. Fredrick Walls PA-C [facility] 10-07-2022 Instructions Fredrick Walls PA-C - 10/07/2022 4:02 PM EST -Trial of carafate, in addition to PPI -Avoid caffeine and acidic foods. Small meals at a time. Avoid eating/drinking after 7 pm -Supplement diet with Boost, ensure, carnation etc -If symptoms worsen or are not improving in the next 3-4 weeks despite above measures, follow up with surgeon to discuss possible gallbladder workup The following instructions are important for you related to your office visit today with the [facility]. INSTRUCTIONS FOLLOWING A NORMAL COLONOSCOPY W/ HISTORY OF POLYP 5YR I discussed with you the findings of your colonoscopy. Since there were no worrisome abnormalities, I recommend you undergo repeat endoscopic screening every 5 years due to your history of polyps This is the current recommendation for colon cancer screening. If you note bleeding, change in bowel habits, or other suspicious colon related symptoms before that time, those symptoms should be evaluated as necessary. INSTRUCTIONS FOR PEPTIC ULCER DISEASE/GASTRITIS I discussed with you the findings of your upper endoscopy. Your upper endoscopy demonstrated signs of peptic ulcer disease or irritation. This can be seen as a range of issues from actual ulcers in the stomach or duodenum (first part of the small bowel) or irritation ranging from redness to more significant irritation with erosions of the stomach or duodenum. These conditions are usually caused from a combination of too much acid production or too little protective mucus production in the stomach. Factors that increase acid production include smoking and stress. If you smoke, stopping smoking will often cure these issues without needing other medications. Factors that decrease the stomach's production of protective mucus include alcohol consumption, smoking, aspirin and other anti-inflammatory use. Over the counter medications including antiacids and acid reducing medications including H2 blockers (Zantac and the like) and proton pump inhibitors (prilosec, prevacid and the like) neutralize or prevent acid production. Prescription strength proton pump inhibitors (PPIs) may be necessary if your symptoms persist. Carafate may be added to PPI treatment in refractory cases. Avoiding smoking, alcohol and antiinflammatory medications are important in the successful treatment of peptic diseases. New or worsening symptoms such are epigastric pain, burning, difficulty swallowing or food sticking should be relayed to your physician. Feeling full early after eating, or black, tarry, foul smelling stools are also worrisome. If you have any difficulties or concerns, you should contact our office immediately. If you note any additional difficulties, questions, or concerns, you should contact our office immediately @ [phone] and ask to be transferred to the General Surgery department. documented in this encounter [facility] 10-07-2022 History of Present illness Narrative FOLLOW UP VISIT - ENDOSCOPY NAME: Abdirizak Ch [facility] NO.: [id number] DATE OF SERVICE: 10/07/2022 : 1955 REFERRING PHYSICIAN: No primary care provider on file. Abdirizak is a patient I am following for colon polyps and need for surveillance colonoscopy. In interim since patient's consult visit, was seen by PCP and had EGD ordered for upper GI complaints . Dr. Alcocer performed upper and lower endoscopy on 09/27/22. Findings per operative report showed: - Normal examined jejunum. Biopsied. - Duodenitis. Biopsied. - Gastritis. Biopsied. - Non-severe reflux esophagitis with no bleeding. Biopsied. - Normal middle third of esophagus. Colonoscopy showed diverticulosis, otherwise normal Pathology demonstrated: FINAL DIAGNOSIS A. Jejunum, biopsy: -Small bowel mucosa with no diagnostic abnormality. B. Antrum, biopsy: -Antral mucosa with reactive gastropathy. -No morphologic evidence of H. pylori on routine stain. C. Esophagus, distal, biopsy: -Squamous epithelium with no diagnostic abnormality. D. Esophagus, MID, biopsy: -Squamous epithelium with no diagnostic abnormality. The patient notes no new complaints since the procedure. VITALS: Blood pressure 112/88, pulse 82, temperature 36.6 C (97.9 F), SpO2 95 %. General: patient is alert, cooperative, pleasant and in no acute distress On examination, the abdomen is benign. Assessment IMPRESSION: normal colonoscopy, history of prior adenomatous polyp PLAN: The operative findings and pathology report were reviewed with the patient, and the patient has had the opportunity to ask questions and have questions answered. If the patient notes any problems or changes in bowel function, the patient should contact me immediately. Otherwise I recommend follow up colonoscopy in 5 years based on prior history of adenomatous polyp. HM updated and recall letter generated. Short-term treatment with PPI and trial of carafate, in addition to dietary and lifestyle modifications as discussed If symptoms persist despite above measures after another 3-4 weeks, recommend following up with surgeon to discuss possible gallbladder workup Patient verbalized understanding of all above and agreed with the plan Diagnoses: (K57.90) Diverticulosis (primary encounter diagnosis) (Z86.010) History of colonic polyps (K29.90) Gastritis and duodenitis I spent a total of 24 minutes on the date of the service which included preparing to see the patient, [id number] patient care, completing clinical documentation, obtaining and/or reviewing separately obtained history, counseling and educating the patient/family/caregiver, independently interpreting results (not separately reported), and communicating results to the patient/family/caregiver. Fredrick Walls PA-C documented in this encounter [facility] 09-27-2022 Nurse Note Oxygen applied at 2L per NC due to pulse ox readings 89-91% on room air. Patient resting comfortably on left side. Patient arrived in phase II via cart left lateral position, eyes closed but open to verbal stimuli, skin warm and dry, respirations regular and unlabored. Abdomen soft and non distended. Denies pain or nausea. Resting comfortably on left side. documented in this encounter [facility] 09-27-2022 History and physical note UPDATED PROCEDURAL SEDATION HISTORY AND PHYSICAL EXAMINATION SERVICE DATE: 09/27/2022 SERVICE TIME: 9:37 AM PHYSICAL EXAM MUST BE COMPLETED ON ADMISSION PROCEDURE: Procedure Indications: The History and Physical (completed in the past 30 days) has been reviewed and the patient has been examined. The contents accurately reflect the patient's condition with the following additions or revisions since the H&P was completed. ASA Class: ASA Class:: Patient with mild systemic disease Examination indicates no changes. AIRWAY: Airway Visualization of Uvula: Yes Mouth opening greater than 2 fingerbreadths: Yes Neck Full Range of Motion: Yes LUNGS: Lungs clear to auscultation CARDIAC: Regular rhythm,Regular rate Provisional Diagnosis/Treatment Plan: history of polyps, nausea and vomiting - EGD and Colonoscopy SEDATION GOAL: Moderate This H&P can be found in the attached. SIGNATURE: Leroy Alcocer MD PATIENT NAME: Abdirizak Bates DATE: September 27, 2022 TIME: 9:37 AM Source Note - Leroy Alcocer MD - 09/27/2022 8:15 AM EST Images from the original note were not included. HISTORY AND PHYSICAL Abdirizak Bates 1955 REFERRING PHYSICIAN: Fredrick Walls PA-C CHIEF COMPLAINT: Consult (Colonoscopy/) HPI: The patient is a 67 year old male referred for endoscopy. Abdirizak notes a history of colon polyp and is due for surveillance colonoscopy. Patient denies any change in bowel habits, weight changes, blood in stools, black tarry stools or abdominal pain. Denies family history of colon issues. The patient notes no upper GI complaints. Abdirizak has undergone prior endoscopy. Last colonoscopy 06/20/[address] Alcocer under conscious sedation with removal of an adenomatous colon polyp, five year follow-up recommended. Patient denies chest pain, shortness of breath or recent hospitalizations. Denies problems with sedation in the past. PAST MEDICAL HISTORY PAST MEDICAL HISTORY Diagnosis Date Asthma CAD (coronary artery disease) 09/04/2012 Calculus of gallbladder without cholecystitis without obstruction 07/15/2016 Chronic airway obstruction, not elsewhere classified Diaphragmatic hernia without mention of obstruction or gangrene Hiatal hernia Displacement of cervical intervertebral disc without myelopathy 12/10/2003 Dysthymic disorder Depression (non-psychotic) Generalized osteoarthrosis, unspecified site GERD (gastroesophageal reflux disease) 06/28/2010 Hearing loss of both ears Wears hearing aids - bilateral Hemorrhoids, internal 06/16/2017 Added automatically from request for surgery [id number] Impaired fasting glucose 07/15/2016 Myalgia and myositis, unspecified Other and unspecified hyperlipidemia Other forms of migraine Other malaise and fatigue Other specified disease of hair and hair follicles Rosacea Snoring Temporomandibular joint disorders, unspecified Tubular adenoma of colon 10/30/2014 Unspecified constipation 06/28/2010 PAST SURGICAL HISTORY PAST SURGICAL HISTORY Procedure Laterality Date CABG (3) VEIN GRAFTS & ARTERIAL GRAFT(S) 09/2011 Triple bypass COLONOS W/REM POLYP SNARE 10/07/14 3 polyps - 2 proximal transverse, 1 distal transverse COLONOSCOP W/ OR W/O BRSH SPEC 07/06/10 Normal COLONOSCOP W/ OR W/O BRSH SPEC 06/20/2017 Colonoscopy EGD W/O BRSH SPECIMEN W/BX 07/06/10 gastritis EGD W/O BRSH SPECIMEN W/BX 10/07/14 duodenitis, gastritis, esophagitis EGD W/O BRSH SPECIMEN W/BX 09/13/2016 continued inflammation HEMORRHOIDECT INTER/EXTER SIMP 2001 LAMINEC/FACETECT/FORAMIN,LUMBAR 2012 REMV LENS MATERIAL,PHACOFRAGMT 1999, 2001 Cataract Extraction bilateral REPAIR ING HERNIA,5+Y/O,REDUCIBL 2004 - left REPAIR ING HERNIA,5+Y/O,REDUCIBL 2001 2 right REPAIR UMBILICAL PHYLICIA,5+Y/O,REDUC 2003 with mesh REVISE MEDIAN N/CARPAL TUNNEL SURG Right 2000 Carpal tunnel decomp right REVISE MEDIAN N/CARPAL TUNNEL SURG Right 11/2014 Carpal tunnel decomp CURRENT MEDICATIONS Current Outpatient Medications Medication Sig traZODone (DESYREL) 50 mg tablet Take 1-2 tablets by mouth daily at bedtime. metFORMIN (GLUCOPHAGE) 500 mg tablet Take 1 tablet by mouth twice daily with meals. fluticasone (FLONASE) 50 mcg/actuation nasal spray Use 2 Sprays in each nostril once daily. tamsulosin ER (FLOMAX) 0.4 mg cap Take 1 capsule by mouth daily at bedtime. baclofen (LIORESAL) 10 mg tablet Blood-Glucose Meter (FREESTYLE LITE METER) monitoring kit Test blood sugar(s) one times daily. Dx: Type 2 DM - Controlled E11.9 Insulin: No atorvastatin (LIPITOR) 80 mg tablet Take 1 tablet by mouth daily at bedtime. calcium Carbonate 300 mg, 750mg, (TUMS) 300 mg (750 mg) chewable tablet Take 1 tablet by mouth as needed (heartburn). Lancets lancets Test blood sugar(s) one times daily. Dx: Type 2 DM - Controlled E11.9 Insulin: No blood sugar diagnostic (BLOOD GLUCOSE TEST) test strip Test blood sugar(s) one times daily. Dx: Type 2 DM - Controlled E11.9 Insulin: No gabapentin (NEURONTIN) 300 mg capsule Take 1 capsule by mouth twice daily. Prescribed by pain management. albuterol HFA (VENTOLIN HFA) 90 mcg/actuation inhaler Inhale 2 Puffs as instructed every 4 hours as needed for Wheezing/Shortness of Breath. multivitamin tablet Take 1 tablet by mouth once daily. HYDROcodone-acetaminophen 5-325 mg per tablet Take 1 tablet by mouth every 6 hours as needed. aspirin, enteric coated (ASPIR-81) 81 mg EC tablet Take 1 tablet by mouth once daily. No current facility-administered medications for this visit. ALLERGIES: Adhesive Tape (Rosins), Contrast Dye, Fd And C Blue No.1, and Sertraline PERSONAL HISTORY: SOCIAL HISTORY Social History Tobacco Use Smoking status: Former Years: 25.00 Types: Cigarettes Smokeless tobacco: Current Types: Chew Tobacco comments: snuff 1 can a week Substance Use Topics Alcohol use: Yes Alcohol/week: 1.7 standard drinks Comment: rarely Drug use: No FAMILY HISTORY: FAMILY HISTORY FAMILY HISTORY Problem Relation Age of Onset other (Paranoid) Son other (disabilities) Son Diabetes Mother Hypertension Mother Heart Father Coronary Artery Disease Father Hypertension Father Hypertension Brother COPD Brother Heart Brother COPD Brother Diabetes Brother Coronary Artery Disease Brother COPD Brother COPD Sister COPD Sister REVIEW OF SYMPTOMS: The review of systems data was entered by the nurse and reviewed by tx Nursing Notes: Mel Alonso LPN 08/09/2022 1:45 PM Signed REVIEW OF SYSTEMS: General: The patient denies fatigue, denies weight loss, denies weight gain, denies feeling hot, and denies feelings of cold. Eyes: The patient denies glaucoma, denies eye injury/surgery, does not wear glasses or contacts. Ear/Nose/Throat: The patient NOTES allergies, denies hayfever, denies ear infections, and denies bloody noses. Cardiovascular: The patient denies chest pain, NOTES heart disease, denies high blood pressure,denies cardiac stent, denies prior heart attack, denies irregular heart beat, NOTES high cholesterol, denies poor circulation, denies heart failure, other cardiac issues, denies claudication, denies cold feet, denies peripheral arterial stent. Respiratory: The patient denies tuberculosis, denies pneumonia, denies frequent cough, denies pulmonary embolism, NOTES shortness of breath, and denies coughing up blood. Gastrointestinal: The patient denies difficulty swallowing, denies acid reflux, denies ulcers, denies vomiting, denies jaundice/hepatitis, denies gallbladder problems, denies black or tarry stools, denies hemorrhoids, denies bleeding from rectum, denies diverticulitis, denies constipation, denies diarrhea, denies loss of stool control, and denies hernias. Kidney/Bladder: The patient denies kidney stones, denies urine infections, and denies bloody urine. Skin: The patient NOTES a history of skin cancer, denies bleeding/changing moles, and NOTES a history of skin rash. Neurologic: The patient denies a history of epilepsy/convulsions, notes headaches, denies head/spinal injuries, and denies stroke/TIA. Psychiatric: The patient denies psychiatric medications, denies depression, and denies voices, denies substance abuse. Endocrine: The patient denies thyroid disorders, NOTES diabetes, and denies hormonal problems. Hematologic: The patient denies a history of bruising, denies bleeding, and denies anemia, denies blood clots. Infections: The patient NOTES a history of measles and mumps, denies rheumatic fever, and denies sexually transmitted diseases. Musculoskeletal: The patient NOTES back pain/injury, NOTES back problems, NOTES sciatica, NOTES knee/foot trouble, denies arthritis, or denies gout. When was patient's last Mammogram screening? N/a Last Colonoscopy: 2017 Mel Alonso LPN I have confirmed and edited as necessary, the PFSH and ROS obtained by others. Fredrick Walls PA-C PHYSICAL EXAMINATION: General: The patient is 67 year old male, well nourished, well hydrated in no acute distress. The patient is oriented to time, place, and person. VITALS: There were no vitals taken for this visit. There is no height or weight on file to calculate BMI. HEENT: Normal cephalic, ataumatic, pupils are equally round, sclera are anicteric, mucous membranes are moist, oropharynx is clear. Neck has no masses, asymmetry or lymphadenopathy. Respiratory: Clear to auscultation and percussion. Normal respiratory excursion and pattern. Cardiac: Examination is regular rate and rhythm. Normal S1/S2 Abdominal exam: Soft, nontender, with no palpable masses. No hepatosplenomegaly. No palpable hernias. Extremities: no clubbing, cyanosis or edema. No adenopathy. LABORATORY VALUES: As Noted RADIOLOGIC STUDIES: As Noted Assessment IMPRESSION: encounter for screening colonoscopy, history of colon polyps PLAN: I have reviewed my findings with the surgeon. Will plan for lower endoscopy. We discussed the risks and benefits of the planned endoscopy. I have informed the patient that complications can occur including failure to complete the endoscopy and perforation. The patient had the opportunity to ask questions concerning the planned endoscopy. My staff has also explained the procedure to the patient in understandable terms and has given the patient printed material concerning the procedure. The patient freely consents to surgery. The patient was offered a surgery/procedure at a [facility] facility. I have counseled the patient regarding the risk of exposure to and/or potential harm posed by the COVID-19 virus with having a surgery/procedure at this time versus the risk of delaying the surgery/procedure. It is not possible to know either the risk of delaying the surgery or procedure or chance of getting an infection with perfect accuracy, but a joint decision was made between the patient and myself to proceed at this time with endoscopy. I plan to use miralax/dulcolax bowel preparation Patient instructed to contact PCP for instructions regarding diabetic medication, which may require adjustment during bowel preparation and/or day of procedure Diagnoses: (Z12.11) Encounter for screening for malignant neoplasm of colon (primary encounter diagnosis) (Z86.010) Personal history of colonic polyps I spent a total of 25 minutes on the date of the service which included preparing to see the patient, [id number] patient care, completing clinical documentation, obtaining and/or reviewing separately obtained history, performing a medically appropriate examination, and care coordination (not separately reported). Fredrick Walls PA-C Images from the original note were not included. HISTORY AND PHYSICAL Abdirizak Bates 1955 REFERRING PHYSICIAN: Fredrick Walls PA-C CHIEF COMPLAINT: Consult (Colonoscopy/) HPI: The patient is a 67 year old male referred for endoscopy. Abdirizak notes a history of colon polyp and is due for surveillance colonoscopy. Patient denies any change in bowel habits, weight changes, blood in stools, black tarry stools or abdominal pain. Denies family history of colon issues. The patient notes no upper GI complaints. Abdirizak has undergone prior endoscopy. Last colonoscopy 06/20/[address] Alcocer under conscious sedation with removal of an adenomatous colon polyp, five year follow-up recommended. Patient denies chest pain, shortness of breath or recent hospitalizations. Denies problems with sedation in the past. PAST MEDICAL HISTORY PAST MEDICAL HISTORY Diagnosis Date Asthma CAD (coronary artery disease) 09/04/2012 Calculus of gallbladder without cholecystitis without obstruction 07/15/2016 Chronic airway obstruction, not elsewhere classified Diaphragmatic hernia without mention of obstruction or gangrene Hiatal hernia Displacement of cervical intervertebral disc without myelopathy 12/10/2003 Dysthymic disorder Depression (non-psychotic) Generalized osteoarthrosis, unspecified site GERD (gastroesophageal reflux disease) 06/28/2010 Hearing loss of both ears Wears hearing aids - bilateral Hemorrhoids, internal 06/16/2017 Added automatically from request for surgery [id number] Impaired fasting glucose 07/15/2016 Myalgia and myositis, unspecified Other and unspecified hyperlipidemia Other forms of migraine Other malaise and fatigue Other specified disease of hair and hair follicles Rosacea Snoring Temporomandibular joint disorders, unspecified Tubular adenoma of colon 10/30/2014 Unspecified constipation 06/28/2010 PAST SURGICAL HISTORY PAST SURGICAL HISTORY Procedure Laterality Date CABG (3) VEIN GRAFTS & ARTERIAL GRAFT(S) 09/2011 Triple bypass COLONOS W/REM POLYP SNARE 10/07/14 3 polyps - 2 proximal transverse, 1 distal transverse COLONOSCOP W/ OR W/O BRSH SPEC 07/06/10 Normal COLONOSCOP W/ OR W/O BRSH SPEC 06/20/2017 Colonoscopy EGD W/O BRSH SPECIMEN W/BX 07/06/10 gastritis EGD W/O BRSH SPECIMEN W/BX 10/07/14 duodenitis, gastritis, esophagitis EGD W/O BRSH SPECIMEN W/BX 09/13/2016 continued inflammation HEMORRHOIDECT INTER/EXTER SIMP 2002 LAMINEC/FACETECT/FORAMIN,LUMBAR 2013 REMV LENS MATERIAL,PHACOFRAGMT 1999, 2001 Cataract Extraction bilateral REPAIR ING HERNIA,5+Y/O,REDUCIBL 2004 - left REPAIR ING HERNIA,5+Y/O,REDUCIBL 2001 2 right REPAIR UMBILICAL PHYLICIA,5+Y/O,REDUC 2003 with mesh REVISE MEDIAN N/CARPAL TUNNEL SURG Right 2000 Carpal tunnel decomp right REVISE MEDIAN N/CARPAL TUNNEL SURG Right 11/2014 Carpal tunnel decomp CURRENT MEDICATIONS Current Outpatient Medications Medication Sig traZODone (DESYREL) 50 mg tablet Take 1-2 tablets by mouth daily at bedtime. metFORMIN (GLUCOPHAGE) 500 mg tablet Take 1 tablet by mouth twice daily with meals. fluticasone (FLONASE) 50 mcg/actuation nasal spray Use 2 Sprays in each nostril once daily. tamsulosin ER (FLOMAX) 0.4 mg cap Take 1 capsule by mouth daily at bedtime. baclofen (LIORESAL) 10 mg tablet Blood-Glucose Meter (FREESTYLE LITE METER) monitoring kit Test blood sugar(s) one times daily. Dx: Type 2 DM - Controlled E11.9 Insulin: No atorvastatin (LIPITOR) 80 mg tablet Take 1 tablet by mouth daily at bedtime. calcium Carbonate 300 mg, 750mg, (TUMS) 300 mg (750 mg) chewable tablet Take 1 tablet by mouth as needed (heartburn). Lancets lancets Test blood sugar(s) one times daily. Dx: Type 2 DM - Controlled E11.9 Insulin: No blood sugar diagnostic (BLOOD GLUCOSE TEST) test strip Test blood sugar(s) one times daily. Dx: Type 2 DM - Controlled E11.9 Insulin: No gabapentin (NEURONTIN) 300 mg capsule Take 1 capsule by mouth twice daily. Prescribed by pain management. albuterol HFA (VENTOLIN HFA) 90 mcg/actuation inhaler Inhale 2 Puffs as instructed every 4 hours as needed for Wheezing/Shortness of Breath. multivitamin tablet Take 1 tablet by mouth once daily. HYDROcodone-acetaminophen 5-325 mg per tablet Take 1 tablet by mouth every 6 hours as needed. aspirin, enteric coated (ASPIR-81) 81 mg EC tablet Take 1 tablet by mouth once daily. No current facility-administered medications for this visit. ALLERGIES: Adhesive Tape (Rosins), Contrast Dye, Fd And C Blue No.1, and Sertraline PERSONAL HISTORY: SOCIAL HISTORY Social History Tobacco Use Smoking status: Former Years: 25.00 Types: Cigarettes Smokeless tobacco: Current Types: Chew Tobacco comments: snuff 1 can a week Substance Use Topics Alcohol use: Yes Alcohol/week: 1.7 standard drinks Comment: rarely Drug use: No FAMILY HISTORY: FAMILY HISTORY FAMILY HISTORY Problem Relation Age of Onset other (Paranoid) Son other (disabilities) Son Diabetes Mother Hypertension Mother Heart Father Coronary Artery Disease Father Hypertension Father Hypertension Brother COPD Brother Heart Brother COPD Brother Diabetes Brother Coronary Artery Disease Brother COPD Brother COPD Sister COPD Sister REVIEW OF SYMPTOMS: The review of systems data was entered by the nurse and reviewed by tx Nursing Notes: Mel Alonso LPN 08/09/2022 1:45 PM Signed REVIEW OF SYSTEMS: General: The patient denies fatigue, denies weight loss, denies weight gain, denies feeling hot, and denies feelings of cold. Eyes: The patient denies glaucoma, denies eye injury/surgery, does not wear glasses or contacts. Ear/Nose/Throat: The patient NOTES allergies, denies hayfever, denies ear infections, and denies bloody noses. Cardiovascular: The patient denies chest pain, NOTES heart disease, denies high blood pressure,denies cardiac stent, denies prior heart attack, denies irregular heart beat, NOTES high cholesterol, denies poor circulation, denies heart failure, other cardiac issues, denies claudication, denies cold feet, denies peripheral arterial stent. Respiratory: The patient denies tuberculosis, denies pneumonia, denies frequent cough, denies pulmonary embolism, NOTES shortness of breath, and denies coughing up blood. Gastrointestinal: The patient denies difficulty swallowing, denies acid reflux, denies ulcers, denies vomiting, denies jaundice/hepatitis, denies gallbladder problems, denies black or tarry stools, denies hemorrhoids, denies bleeding from rectum, denies diverticulitis, denies constipation, denies diarrhea, denies loss of stool control, and denies hernias. Kidney/Bladder: The patient denies kidney stones, denies urine infections, and denies bloody urine. Skin: The patient NOTES a history of skin cancer, denies bleeding/changing moles, and NOTES a history of skin rash. Neurologic: The patient denies a history of epilepsy/convulsions, notes headaches, denies head/spinal injuries, and denies stroke/TIA. Psychiatric: The patient denies psychiatric medications, denies depression, and denies voices, denies substance abuse. Endocrine: The patient denies thyroid disorders, NOTES diabetes, and denies hormonal problems. Hematologic: The patient denies a history of bruising, denies bleeding, and denies anemia, denies blood clots. Infections: The patient NOTES a history of measles and mumps, denies rheumatic fever, and denies sexually transmitted diseases. Musculoskeletal: The patient NOTES back pain/injury, NOTES back problems, NOTES sciatica, NOTES knee/foot trouble, denies arthritis, or denies gout. When was patient's last Mammogram screening? N/a Last Colonoscopy: 2016 Mel Alonso LPN I have confirmed and edited as necessary, the PFSH and ROS obtained by others. Fredrick Walls PA-C PHYSICAL EXAMINATION: General: The patient is 67 year old male, well nourished, well hydrated in no acute distress. The patient is oriented to time, place, and person. VITALS: There were no vitals taken for this visit. There is no height or weight on file to calculate BMI. HEENT: Normal cephalic, ataumatic, pupils are equally round, sclera are anicteric, mucous membranes are moist, oropharynx is clear. Neck has no masses, asymmetry or lymphadenopathy. Respiratory: Clear to auscultation and percussion. Normal respiratory excursion and pattern. Cardiac: Examination is regular rate and rhythm. Normal S1/S2 Abdominal exam: Soft, nontender, with no palpable masses. No hepatosplenomegaly. No palpable hernias. Extremities: no clubbing, cyanosis or edema. No adenopathy. LABORATORY VALUES: As Noted RADIOLOGIC STUDIES: As Noted Assessment IMPRESSION: encounter for screening colonoscopy, history of colon polyps PLAN: I have reviewed my findings with the surgeon. Will plan for lower endoscopy. We discussed the risks and benefits of the planned endoscopy. I have informed the patient that complications can occur including failure to complete the endoscopy and perforation. The patient had the opportunity to ask questions concerning the planned endoscopy. My staff has also explained the procedure to the patient in understandable terms and has given the patient printed material concerning the procedure. The patient freely consents to surgery. The patient was offered a surgery/procedure at a [facility] facility. I have counseled the patient regarding the risk of exposure to and/or potential harm posed by the COVID-19 virus with having a surgery/procedure at this time versus the risk of delaying the surgery/procedure. It is not possible to know either the risk of delaying the surgery or procedure or chance of getting an infection with perfect accuracy, but a joint decision was made between the patient and myself to proceed at this time with endoscopy. I plan to use miralax/dulcolax bowel preparation Patient instructed to contact PCP for instructions regarding diabetic medication, which may require adjustment during bowel preparation and/or day of procedure Diagnoses: (Z12.11) Encounter for screening for malignant neoplasm of colon (primary encounter diagnosis) (Z86.010) Personal history of colonic polyps I spent a total of 25 minutes on the date of the service which included preparing to see the patient, [id number] patient care, completing clinical documentation, obtaining and/or reviewing separately obtained history, performing a medically appropriate examination, and care coordination (not separately reported). Fredrick Walls PA-C documented in this encounter [facility] 09-16-2022 Miscellaneous Notes EGD added to procedure Fela Amb[facility] Professional [facility] Pt calling to inform that Dr. Yousif had ordered EGD for pt. There is an order in Epic from [facility]. Pt asking if that can be done the same day as the colonoscopy. Please contact patient to confirm date. Aspen Sainz documented in this encounter [facility] 09-16-2022 Miscellaneous Notes Called by patient's PCP Dr. Batista who also is having upper symptoms will add EGD and perform orosco biopsies. 09/27/2022 COLON ASC documented in this encounter [facility] 08-09-2022 Note HNO ID: [id number] Author: Fredrick Walls PA-C Service: ? Author Type: Physician [employer] Type: Progress Notes Filed: 08/16/2022 1:00 AM Note Text: HISTORY AND PHYSICAL Abdirizak Bates 1955 REFERRING PHYSICIAN: Fredrick Walls PA-C CHIEF COMPLAINT: Consult (Colonoscopy/) HPI: The patient is a 67 year old male referred for endoscopy. Abdirizak notes a history of colon polyp and is due for surveillance colonoscopy. Patient denies any change in bowel habits, weight changes, blood in stools, black tarry stools or abdominal pain. Denies family history of colon issues. The patient notes no upper GI complaints. Abdirizak has undergone prior endoscopy. Last colonoscopy 06/20/[address] Alcocer under conscious sedation with removal of an adenomatous colon polyp, five year follow-up recommended. Patient denies chest pain, shortness of breath or recent hospitalizations. Denies problems with sedation in the past. PAST MEDICAL HISTORY Diagnosis Date Asthma CAD (coronary artery disease) 09/04/2012 Calculus of gallbladder without cholecystitis without obstruction 07/15/2016 Chronic airway obstruction, not elsewhere classified Diaphragmatic hernia without mention of obstruction or gangrene Hiatal hernia Displacement of cervical intervertebral disc without myelopathy 12/10/2003 Dysthymic disorder Depression (non-psychotic) Generalized osteoarthrosis, unspecified site GERD (gastroesophageal reflux disease) 06/28/2010 Hearing loss of both ears Wears hearing aids - bilateral Hemorrhoids, internal 06/16/2017 Added automatically from request for surgery [id number] Impaired fasting glucose 07/15/2016 Myalgia and myositis, unspecified Other and unspecified hyperlipidemia Other forms of migraine Other malaise and fatigue Other specified disease of hair and hair follicles Rosacea Snoring Temporomandibular joint disorders, unspecified Tubular adenoma of colon 10/30/2014 Unspecified constipation 06/28/2010 PAST SURGICAL HISTORY Procedure Laterality Date CABG (3) VEIN GRAFTS AND ARTERIAL GRAFT(S) 09/2011 Triple bypass COLONOS W/REM POLYP SNARE 2/24/15 3 polyps - 2 proximal transverse, 1 distal transverse COLONOSCOP W/ OR W/O [facility] SPEC 07/06/10 Normal COLONOSCOP W/ OR W/O [facility] SPEC 06/20/2017 Colonoscopy EGD W/O [facility] SPECIMEN W/BX 07/06/10 gastritis EGD W/O [facility] SPECIMEN W/BX 10/07/14 duodenitis, gastritis, esophagitis EGD W/O [facility] SPECIMEN W/BX 09/13/2016 continued inflammation HEMORRHOIDECT INTER/EXTER SIMP 2001 LAMINEC/FACETECT/FORAMIN,LUMBAR 2012 REMV LENS MATERIAL,PHACOFRAGMT 1999, 2001 Cataract Extraction bilateral REPAIR ING HERNIA,5+Y/O,REDUCIBL 2004 - left REPAIR ING HERNIA,5+Y/O,REDUCIBL 2001 2 right REPAIR UMBILICAL PHYLICIA,5+Y/O,REDUC 2003 with mesh REVISE MEDIAN N/CARPAL TUNNEL SURG Right 2000 Carpal tunnel decomp right REVISE MEDIAN N/CARPAL TUNNEL SURG Right 11/2014 Carpal tunnel decomp Current Outpatient Medications Medication Sig traZODone (DESYREL) 50 mg tablet Take 1-2 tablets by mouth daily at bedtime. metFORMIN (GLUCOPHAGE) 500 mg tablet Take 1 tablet by mouth twice daily with meals. fluticasone (FLONASE) 50 mcg/actuation nasal spray Use 2 Sprays in each nostril once daily. tamsulosin ER (FLOMAX) 0.4 mg cap Take 1 capsule by mouth daily at bedtime. baclofen (LIORESAL) 10 mg tablet Blood-Glucose Meter (FREESTYLE LITE METER) monitoring kit Test blood sugar(s) one times daily. Dx: Type 2 DM - Controlled E11.9 Insulin: No atorvastatin (LIPITOR) 80 mg tablet Take 1 tablet by mouth daily at bedtime. calcium Carbonate 300 mg, 750mg, (TUMS) 300 mg (750 mg) chewable tablet Take 1 tablet by mouth as needed (heartburn). Lancets lancets Test blood sugar(s) one times daily. Dx: Type 2 DM - Controlled E11.9 Insulin: No blood sugar diagnostic (BLOOD GLUCOSE TEST) test strip Test blood sugar(s) one times daily. Dx: Type 2 DM - Controlled E11.9 Insulin: No gabapentin (NEURONTIN) 300 mg capsule Take 1 capsule by mouth twice daily. Prescribed by pain management. albuterol HFA (VENTOLIN HFA) 90 mcg/actuation inhaler Inhale 2 Puffs as instructed every 4 hours as needed for Wheezing/Shortness of Breath. multivitamin tablet Take 1 tablet by mouth once daily. HYDROcodone-acetaminophen 5-325 mg per tablet Take 1 tablet by mouth every 6 hours as needed. aspirin, enteric coated (ASPIR-81) 81 mg EC tablet Take 1 tablet by mouth once daily. No current facility-administered medications for this visit. ALLERGIES: Adhesive Tape (Rosins), Contrast Dye, Fd And C Blue No.1, and Sertraline PERSONAL HISTORY: Social History Tobacco Use Smoking status: Former Years: 25.00 Types: Cigarettes Smokeless tobacco: Current Types: Chew Tobacco comments: snuff 1 can a week Substance Use Topics Alcohol use: Yes Alcohol/week: 1.7 standard drinks Comment: rarely Drug use: No FAMILY HISTORY: FAMILY HISTORY Problem Relation Age of Ons (more content not included)... [facility] 08-09-2022 Nurse Note REVIEW OF SYSTEMS: General: The patient denies fatigue, denies weight loss, denies weight gain, denies feeling hot, and denies feelings of cold. Eyes: The patient denies glaucoma, denies eye injury/surgery, does not wear glasses or contacts. Ear/Nose/Throat: The patient NOTES allergies, denies hayfever, denies ear infections, and denies bloody noses. Cardiovascular: The patient denies chest pain, NOTES heart disease, denies high blood pressure,denies cardiac stent, denies prior heart attack, denies irregular heart beat, NOTES high cholesterol, denies poor circulation, denies heart failure, other cardiac issues, denies claudication, denies cold feet, denies peripheral arterial stent. Respiratory: The patient denies tuberculosis, denies pneumonia, denies frequent cough, denies pulmonary embolism, NOTES shortness of breath, and denies coughing up blood. Gastrointestinal: The patient denies difficulty swallowing, denies acid reflux, denies ulcers, denies vomiting, denies jaundice/hepatitis, denies gallbladder problems, denies black or tarry stools, denies hemorrhoids, denies bleeding from rectum, denies diverticulitis, denies constipation, denies diarrhea, denies loss of stool control, and denies hernias. Kidney/Bladder: The patient denies kidney stones, denies urine infections, and denies bloody urine. Skin: The patient NOTES a history of skin cancer, denies bleeding/changing moles, and NOTES a history of skin rash. Neurologic: The patient denies a history of epilepsy/convulsions, notes headaches, denies head/spinal injuries, and denies stroke/TIA. Psychiatric: The patient denies psychiatric medications, denies depression, and denies voices, denies substance abuse. Endocrine: The patient denies thyroid disorders, NOTES diabetes, and denies hormonal problems. Hematologic: The patient denies a history of bruising, denies bleeding, and denies anemia, denies blood clots. Infections: The patient NOTES a history of measles and mumps, denies rheumatic fever, and denies sexually transmitted diseases. Musculoskeletal: The patient NOTES back pain/injury, NOTES back problems, NOTES sciatica, NOTES knee/foot trouble, denies arthritis, or denies gout. When was patient's last Mammogram screening? N/a Last Colonoscopy: 2016 Mel Alonso LPN documented in this encounter [facility] 08-09-2022 History of Present illness Narrative HISTORY AND PHYSICAL Abdirizak Ch Bates 1955 REFERRING PHYSICIAN: Fredrick Walls PA-C CHIEF COMPLAINT: Consult (Colonoscopy/) HPI: The patient is a 67 year old male referred for endoscopy. Abdirizak notes a history of colon polyp and is due for surveillance colonoscopy. Patient denies any change in bowel habits, weight changes, blood in stools, black tarry stools or abdominal pain. Denies family history of colon issues. The patient notes no upper GI complaints. Abdirizak has undergone prior endoscopy. Last colonoscopy 06/20/[address] Alcocer under conscious sedation with removal of an adenomatous colon polyp, five year follow-up recommended. Patient denies chest pain, shortness of breath or recent hospitalizations. Denies problems with sedation in the past. PAST MEDICAL HISTORY Diagnosis Date Asthma CAD (coronary artery disease) 09/04/2012 Calculus of gallbladder without cholecystitis without obstruction 07/15/2016 Chronic airway obstruction, not elsewhere classified Diaphragmatic hernia without mention of obstruction or gangrene Hiatal hernia Displacement of cervical intervertebral disc without myelopathy 12/10/2003 Dysthymic disorder Depression (non-psychotic) Generalized osteoarthrosis, unspecified site GERD (gastroesophageal reflux disease) 06/28/2010 Hearing loss of both ears Wears hearing aids - bilateral Hemorrhoids, internal 06/16/2017 Added automatically from request for surgery [id number] Impaired fasting glucose 07/15/2016 Myalgia and myositis, unspecified Other and unspecified hyperlipidemia Other forms of migraine Other malaise and fatigue Other specified disease of hair and hair follicles Rosacea Snoring Temporomandibular joint disorders, unspecified Tubular adenoma of colon 10/30/2014 Unspecified constipation 06/28/2010 PAST SURGICAL HISTORY Procedure Laterality Date CABG (3) VEIN GRAFTS & ARTERIAL GRAFT(S) 09/2011 Triple bypass COLONOS W/REM POLYP SNARE 10/07/14 3 polyps - 2 proximal transverse, 1 distal transverse COLONOSCOP W/ OR W/O [facility] SPEC 07/06/10 Normal COLONOSCOP W/ OR W/O [facility] SPEC 06/20/2017 Colonoscopy EGD W/O [facility] SPECIMEN W/BX 07/06/10 gastritis EGD W/O [facility] SPECIMEN W/BX 10/07/14 duodenitis, gastritis, esophagitis EGD W/O [facility] SPECIMEN W/BX 09/13/2016 continued inflammation HEMORRHOIDECT INTER/EXTER SIMP 2001 LAMINEC/FACETECT/FORAMIN,LUMBAR 2012 REMV LENS MATERIAL,PHACOFRAGMT 1999, 2001 Cataract Extraction bilateral REPAIR ING HERNIA,5+Y/O,REDUCIBL 2003 - left REPAIR ING HERNIA,5+Y/O,REDUCIBL 2001 2 right REPAIR UMBILICAL PHYLICIA,5+Y/O,REDUC 2003 with mesh REVISE MEDIAN N/CARPAL TUNNEL SURG Right 2000 Carpal tunnel decomp right RE[facility] N/CARPAL TUNNEL SURG Right 11/2014 Carpal tunnel decomp Current Outpatient Medications Medication Sig traZODone (DESYREL) 50 mg tablet Take 1-2 tablets by mouth daily at bedtime. metFORMIN (GLUCOPHAGE) 500 mg tablet Take 1 tablet by mouth twice daily with meals. fluticasone (FLONASE) 50 mcg/actuation nasal spray Use 2 Sprays in each nostril once daily. tamsulosin ER (FLOMAX) 0.4 mg cap Take 1 capsule by mouth daily at bedtime. baclofen (LIORESAL) 10 mg tablet Blood-Glucose Meter (FREESTYLE LITE METER) monitoring kit Test blood sugar(s) one times daily. Dx: Type 2 DM - Controlled E11.9 Insulin: No atorvastatin (LIPITOR) 80 mg tablet Take 1 tablet by mouth daily at bedtime. calcium Carbonate 300 mg, 750mg, (TUMS) 300 mg (750 mg) chewable tablet Take 1 tablet by mouth as needed (heartburn). Lancets lancets Test blood sugar(s) one times daily. Dx: Type 2 DM - Controlled E11.9 Insulin: No blood sugar diagnostic (BLOOD GLUCOSE TEST) test strip Test blood sugar(s) one times daily. Dx: Type 2 DM - Controlled E11.9 Insulin: No gabapentin (NEURONTIN) 300 mg capsule Take 1 capsule by mouth twice daily. Prescribed by pain management. albuterol HFA (VENTOLIN HFA) 90 mcg/actuation inhaler Inhale 2 Puffs as instructed every 4 hours as needed for Wheezing/Shortness of Breath. multivitamin tablet Take 1 tablet by mouth once daily. HYDROcodone-acetaminophen 5-325 mg per tablet Take 1 tablet by mouth every 6 hours as needed. aspirin, enteric coated (ASPIR-81) 81 mg EC tablet Take 1 tablet by mouth once daily. No current facility-administered medications for this visit. ALLERGIES: Adhesive Tape (Rosins), Contrast Dye, Fd And C Blue No.1, and Sertraline PERSONAL HISTORY: Social History Tobacco Use Smoking status: Former Years: 25.00 Types: Cigarettes Smokeless tobacco: Current Types: Chew Tobacco comments: snuff 1 can a week Substance Use Topics Alcohol use: Yes Alcohol/week: 1.7 standard drinks Comment: rarely Drug use: No FAMILY HISTORY: FAMILY HISTORY Problem Relation Age of Onset other (Paranoid) Son other (disabilities) Son Diabetes Mother Hypertension Mother Heart Father Coronary Artery Disease Father Hypertension Father Hypertension Brother COPD Brother Heart Brother COPD Brother Diabetes Brother Coronary Artery Disease Brother COPD Brother COPD Sister COPD Sister REVIEW OF SYMPTOMS: The review of systems data was entered by the nurse and reviewed by tx Nursing Notes: Mel Alonso LPN 08/09/2022 1:45 PM Signed REVIEW OF SYSTEMS: General: The patient denies fatigue, denies weight loss, denies weight gain, denies feeling hot, and denies feelings of cold. Eyes: The patient denies glaucoma, denies eye injury/surgery, does not wear glasses or contacts. Ear/Nose/Throat: The patient NOTES allergies, denies hayfever, denies ear infections, and denies bloody noses. Cardiovascular: The patient denies chest pain, NOTES heart disease, denies high blood pressure,denies cardiac stent, denies prior heart attack, denies irregular heart beat, NOTES high cholesterol, denies poor circulation, denies heart failure, other cardiac issues, denies claudication, denies cold feet, denies peripheral arterial stent. Respiratory: The patient denies tuberculosis, denies pneumonia, denies frequent cough, denies pulmonary embolism, NOTES shortness of breath, and denies coughing up blood. Gastrointestinal: The patient denies difficulty swallowing, denies acid reflux, denies ulcers, denies vomiting, denies jaundice/hepatitis, denies gallbladder problems, denies black or tarry stools, denies hemorrhoids, denies bleeding from rectum, denies diverticulitis, denies constipation, denies diarrhea, denies loss of stool control, and denies hernias. Kidney/Bladder: The patient denies kidney stones, denies urine infections, and denies bloody urine. Skin: The patient NOTES a history of skin cancer, denies bleeding/changing moles, and NOTES a history of skin rash. Neurologic: The patient denies a history of epilepsy/convulsions, notes headaches, denies head/spinal injuries, and denies stroke/TIA. Psychiatric: The patient denies psychiatric medications, denies depression, and denies voices, denies substance abuse. Endocrine: The patient denies thyroid disorders, NOTES diabetes, and denies hormonal problems. Hematologic: The patient denies a history of bruising, denies bleeding, and denies anemia, denies blood clots. Infections: The patient NOTES a history of measles and mumps, denies rheumatic fever, and denies sexually transmitted diseases. Musculoskeletal: The patient NOTES back pain/injury, NOTES back problems, NOTES sciatica, NOTES knee/foot trouble, denies arthritis, or denies gout. When was patient's last Mammogram screening? N/a Last Colonoscopy: 2016 Mel Alonso LPN I have confirmed and edited as necessary, the PFSH and ROS obtained by others. Fredrick Titi, PA-C PHYSICAL EXAMINATION: General: The patient is 67 year old male, well nourished, well hydrated in no acute distress. The patient is oriented to time, place, and person. VITALS: There were no vitals taken for this visit. There is no height or weight on file to calculate BMI. HEENT: Normal cephalic, ataumatic, pupils are equally round, sclera are anicteric, mucous membranes are moist, oropharynx is clear. Neck has no masses, asymmetry or lymphadenopathy. Respiratory: Clear to auscultation and percussion. Normal respiratory excursion and pattern. Cardiac: Examination is regular rate and rhythm. Normal S1/S2 Abdominal exam: Soft, nontender, with no palpable masses. No hepatosplenomegaly. No palpable hernias. Extremities: no clubbing, cyanosis or edema. No adenopathy. LABORATORY VALUES: As Noted RADIOLOGIC STUDIES: As Noted Assessment IMPRESSION: encounter for screening colonoscopy, history of colon polyps PLAN: I have reviewed my findings with the surgeon. Will plan for lower endoscopy. We discussed the risks and benefits of the planned endoscopy. I have informed the patient that complications can occur including failure to complete the endoscopy and perforation. The patient had the opportunity to ask questions concerning the planned endoscopy. My staff has also explained the procedure to the patient in understandable terms and has given the patient printed material concerning the procedure. The patient freely consents to surgery. The patient was offered a surgery/procedure at a [facility] facility. I have counseled the patient regarding the risk of exposure to and/or potential harm posed by the COVID-19 virus with having a surgery/procedure at this time versus the risk of delaying the surgery/procedure. It is not possible to know either the risk of delaying the surgery or procedure or chance of getting an infection with perfect accuracy, but a joint decision was made between the patient and myself to proceed at this time with endoscopy. I plan to use miralax/dulcolax bowel preparation Patient instructed to contact PCP for instructions regarding diabetic medication, which may require adjustment during bowel preparation and/or day of procedure Diagnoses: (Z12.11) Encounter for screening for malignant neoplasm of colon (primary encounter diagnosis) (Z86.010) Personal history of colonic polyps I spent a total of 25 minutes on the date of the service which included preparing to see the patient, [id number] patient care, completing clinical documentation, obtaining and/or reviewing separately obtained history, performing a medically appropriate examination, and care coordination (not separately reported). Fredrick Walls PA-C documented in this encounter [facility] documented as of this encounter (statuses as of 08/18/2022) [facility]11-03-2017 History of Past illness Narrative* Problem Noted Date Resolved Date Hemorrhoids, internal 06/16/2017 01/15/2018 Overview: Added automatically from request for surgery [id number] Bright red rectal bleeding 06/16/201707/17 Overview: Added automatically from request for surgery [id number] History of colonic polyps 06/16/20172016 Overview: Added automatically from request for surgery [id number] Calculus of gallbladder with out cholecystitis without obstruction 07/15/2016 01/15/2018 Sore throat (viral) 02/01/2014 11/04/2014 Last Assessment & Plan: Sore throat for the last 5 daus,, since Monday of this week, Progressively getting worse, has burning in the throat, hurts some to swallow. Has cough with green sputum early in the morning, and only in the morning, He had some chills, no fever, Myalgia which is severe today, Some SOB wand coughing while lying flat is preventing him from sleeping flat. Laboratory test 07/16/2012 11/04/2014 Overview: PSA done [facility] 07/06/2012 - 0.89 Pain in joint, shoulder region 04/06/2012 0 04/12/2016 GERD (gastroesophageal reflux disease) 0 07/17/2017 Diabetes mellitus 06/25/2010 09/04/2012 Headache(784.0) 10/30/2007 01/15/2018 Dysthymic disorder 07/17/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) Other malaise and fatigue 2015 Other specified disease of hair and hair follicl es 11/04/2014 documented as of this encounter (statuses as of 09/16/2022) [facility] History of Past illness Narrative* Problem Noted Date Resolved Date Hemorrhoids, internal 06/16/2017 01/15/2018 Overview: Added automatically from request for surgery [id number] Bright red rectal bleeding 06/16/201707/17 Overview: Added automatically from request for surgery [id number] History of colonic polyps 06/16/20172016 Overview: Added automatically from request for surgery [id number] Calculus of gallbladder with out cholecystitis without obstruction 07/15/2016 01/15/2018 Sore throat (viral) 02/01/2014 11/04/2014 Last Assessment & Plan: Sore throat for the last 5 daus,, since Monday of this week, Progressively getting worse, has burning in the throat, hurts some to swallow. Has cough with green sputum early in the morning, and only in the morning, He had some chills, no fever, Myalgia which is severe today, Some SOB wand coughing while lying flat is preventing him from sleeping flat. Laboratory test 07/16/2012 11/04/2014 Overview: PSA done [facility] 07/06/2012 - 0.89 Pain in joint, shoulder region 04/06/2012 0 04/12/2016 GERD (gastroesophageal reflux disease) 0 07/17/2017 Diabetes mellitus 06/25/2010 09/04/2012 Headache(784.0) 10/30/2007 01/15/2018 Dysthymic disorder 07/17/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) Other malaise and fatigue 2015 Other specified disease of hair and hair follicl es 11/04/2014 documented as of this encounter (statuses as of 09/16/2022) [facility] History of Past illness Narrative* Problem Noted Date Resolved Date Hemorrhoids, internal 06/16/2017 01/15/2018 Overview: Added automatically from request for surgery [id number] Bright red rectal bleeding 06/16/201707/17 Overview: Added automatically from request for surgery [id number] History of colonic polyps 06/16/20172016 Overview: Added automatically from request for surgery [id number] Calculus of gallbladder with out cholecystitis without obstruction 07/15/2016 01/15/2018 Sore throat (viral) 02/01/2014 11/04/2014 Last Assessment & Plan: Sore throat for the last 5 daus,, since Monday of this week, Progressively getting worse, has burning in the throat, hurts some to swallow. Has cough with green sputum early in the morning, and only in the morning, He had some chills, no fever, Myalgia which is severe today, Some SOB wand coughing while lying flat is preventing him from sleeping flat. Laboratory test 07/16/2012 11/04/2014 Overview: PSA done [facility] 07/06/2012 - 0.89 Pain in joint, shoulder region 04/06/2012 0 04/12/2016 GERD (gastroesophageal reflux disease) 0 07/17/2017 Diabetes mellitus 06/25/2010 09/04/2012 Headache(784.0) 10/30/2007 01/15/2018 Dysthymic disorder 07/17/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) Other malaise and fatigue 2015 Other specified disease of hair and hair follicl es 11/04/2014 documented as of this encounter (statuses as of 10/13/2022) [facility] History of Past illness Narrative* Problem Noted Date Resolved Date Hemorrhoids, internal 06/16/2017 01/15/2018 Overview: Added automatically from request for surgery [id number] Bright red rectal bleeding 06/16/201707/17 Overview: Added automatically from request for surgery [id number] History of colonic polyps 06/16/20172016 Overview: Added automatically from request for surgery [id number] Calculus of gallbladder with out cholecystitis without obstruction 07/15/2016 01/15/2018 Sore throat (viral) 02/01/2014 11/04/2014 Last Assessment & Plan: Sore throat for the last 5 daus,, since Monday of this week, Progressively getting worse, has burning in the throat, hurts some to swallow. Has cough with green sputum early in the morning, and only in the morning, He had some chills, no fever, Myalgia which is severe today, Some SOB wand coughing while lying flat is preventing him from sleeping flat. Laboratory test 07/16/2012 11/04/2014 Overview: PSA done [facility] 07/06/2012 - 0.89 Pain in joint, shoulder region 04/06/2012 0 04/12/2016 GERD (gastroesophageal reflux disease) 0 07/17/2017 Diabetes mellitus 06/25/2010 09/04/2012 Headache(784.0) 10/30/2007 01/15/2018 Dysthymic disorder 07/17/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) Other malaise and fatigue 2015 Other specified disease of hair and hair follicl es 11/04/2014 documented as of this encounter (statuses as of 10/20/2022) [facility]11-03-2017 History of Past illness Narrative* Problem Noted Date Resolved Date Hemorrhoids, internal 06/16/2017 01/15/2018 Overview: Added automatically from request for surgery [id number] Bright red rectal bleeding 06/16/201707/17 Overview: Added automatically from request for surgery [id number] History of colonic polyps 06/16/20172016 Overview: Added automatically from request for surgery [id number] Calculus of gallbladder with out cholecystitis without obstruction 07/15/2016 01/15/2018 Sore throat (viral) 02/01/2014 11/04/2014 Last Assessment & Plan: Sore throat for the last 5 daus,, since Monday of this week, Progressively getting worse, has burning in the throat, hurts some to swallow. Has cough with green sputum early in the morning, and only in the morning, He had some chills, no fever, Myalgia which is severe today, Some SOB wand coughing while lying flat is preventing him from sleeping flat. Laboratory test 07/16/2012 11/04/2014 Overview: PSA done [facility] 07/06/2012 - 0.89 Pain in joint, shoulder region 04/06/2012 0 04/12/2016 GERD (gastroesophageal reflux disease) 0 07/17/2017 Diabetes mellitus 06/25/2010 09/04/2012 Headache(784.0) 10/30/2007 01/15/2018 Dysthymic disorder 07/17/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) Other malaise and fatigue 2015 Other specified disease of hair and hair follicl es 11/04/2014 documented as of this encounter (statuses as of 10/26/2022) [facility]11-[facility]2017 History of Past illness Narrative* Problem Noted Date Resolved Date Hemorrhoids, internal 06/16/2017 01/15/2018 Overview: Added automatically from request for surgery [id number] Bright red rectal bleeding 06/16/201707/17 Overview: Added automatically from request for surgery [id number] History of colonic polyps 06/16/20172016 Overview: Added automatically from request for surgery [id number] Calculus of gallbladder with out cholecystitis without obstruction 07/15/2016 01/15/2018 Sore throat (viral) 02/01/2014 11/04/2014 Last Assessment & Plan: Sore throat for the last 5 daus,, since Monday of this week, Progressively getting worse, has burning in the throat, hurts some to swallow. Has cough with green sputum early in the morning, and only in the morning, He had some chills, no fever, Myalgia which is severe today, Some SOB wand coughing while lying flat is preventing him from sleeping flat. Laboratory test 07/16/2012 11/04/2014 Overview: PSA done [facility] 07/06/2012 - 0.89 Pain in joint, shoulder region 04/06/2012 0 04/12/2016 GERD (gastroesophageal reflux disease) 0 07/17/2017 Diabetes mellitus 06/25/2010 09/04/2012 Headache(784.0) 10/30/2007 01/15/2018 Dysthymic disorder 07/17/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) Other malaise and fatigue 2015 Other specified disease of hair and hair follicl es 11/04/2014 documented as of this encounter (statuses as of 11/09/2022) [facility]2017 History of Past illness Narrative* Problem Noted Date Resolved Date Hemorrhoids, internal 06/16/2017 01/15/2018 Overview: Added automatically from request for surgery [id number] Bright red rectal bleeding 06/16/201707/17 Overview: Added automatically from request for surgery [id number] History of colonic polyps 06/16/20172016 Overview: Added automatically from request for surgery [id number] Calculus of gallbladder with out cholecystitis without obstruction 07/15/2016 01/15/2018 Sore throat (viral) 02/01/2014 11/04/2014 Last Assessment & Plan: Sore throat for the last 5 daus,, since Monday of this week, Progressively getting worse, has burning in the throat, hurts some to swallow. Has cough with green sputum early in the morning, and only in the morning, He had some chills, no fever, Myalgia which is severe today, Some SOB wand coughing while lying flat is preventing him from sleeping flat. Laboratory test 07/16/2012 11/04/2014 Overview: PSA done [facility] 07/06/2012 - 0.89 Pain in joint, shoulder region 04/06/2012 0 04/12/2016 GERD (gastroesophageal reflux disease) 0 07/17/2017 Diabetes mellitus 06/25/2010 09/04/2012 Headache(784.0) 10/30/2007 01/15/2018 Dysthymic disorder 07/17/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) Other malaise and fatigue 2015 Other specified disease of hair and hair follicl es 11/04/2014 documented as of this encounter (statuses as of 11/09/2022) [facility]2017 History of Past illness Narrative* Problem Noted Date Resolved Date Hemorrhoids, internal 06/16/2017 01/15/2018 Overview: Added automatically from request for surgery [id number] Bright red rectal bleeding 06/16/201707/17 Overview: Added automatically from request for surgery [id number] History of colonic polyps 06/16/20172016 Overview: Added automatically from request for surgery [id number] Calculus of gallbladder with out cholecystitis without obstruction 07/15/2016 01/15/2018 Sore throat (viral) 02/01/2014 11/04/2014 Last Assessment & Plan: Sore throat for the last 5 daus,, since Monday of this week, Progressively getting worse, has burning in the throat, hurts some to swallow. Has cough with green sputum early in the morning, and only in the morning, He had some chills, no fever, Myalgia which is severe today, Some SOB wand coughing while lying flat is preventing him from sleeping flat. Laboratory test 07/16/2012 11/04/2014 Overview: PSA done [facility] 07/06/2012 - 0.89 Pain in joint, shoulder region 04/06/2012 0 04/12/2016 GERD (gastroesophageal reflux disease) 0 07/17/2017 Diabetes mellitus 06/25/2010 09/04/2012 Headache(784.0) 10/30/2007 01/15/2018 Dysthymic disorder 07/17/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) Other malaise and fatigue 2015 Other specified disease of hair and hair follicl es 11/04/2014 documented as of this encounter (statuses as of 11/18/2022) [facility]2017 History of Past illness Narrative* Problem Noted Date Resolved Date Hemorrhoids, internal 06/16/2017 01/15/2018 Overview: Added automatically from request for surgery [id number] Bright red rectal bleeding 06/16/201707/17 Overview: Added automatically from request for surgery [id number] History of colonic polyps 06/16/20172016 Overview: Added automatically from request for surgery [id number] Calculus of gallbladder with out cholecystitis without obstruction 07/15/2016 01/15/2018 Sore throat (viral) 02/01/2014 11/04/2014 Last Assessment & Plan: Sore throat for the last 5 daus,, since Monday of this week, Progressively getting worse, has burning in the throat, hurts some to swallow. Has cough with green sputum early in the morning, and only in the morning, He had some chills, no fever, Myalgia which is severe today, Some SOB wand coughing while lying flat is preventing him from sleeping flat. Laboratory test 07/16/2012 11/04/2014 Overview: PSA done [facility] 07/06/2012 - 0.89 Pain in joint, shoulder region 04/06/2012 0 04/12/2016 GERD (gastroesophageal reflux disease) 0 07/17/2017 Diabetes mellitus 06/25/2010 09/04/2012 Headache(784.0) 10/30/2007 01/15/2018 Dysthymic disorder 07/17/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) Other malaise and fatigue 2015 Other specified disease of hair and hair follicl es 11/04/2014 documented as of this encounter (statuses as of 11/23/2022) [facility]2017 History of Past illness Narrative* Problem Noted Date Diagnosed Date Resolved Date Hemorrhoids, internal 06/16/2017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: Added automatically from request for surgery [id number] Bright red rectal bleeding 06/16/2017 1 09/17/2016 Overview: Added automatically from request for surgery [id number] History of colonic polyps 06/16/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: Added automatically from request for surgery [id number] Calculus of gallbladder with out cholecystitis without obstruction 07/15/2016 01/15/2018 Sore throat (viral) 02/01/2014 11/05/19 15 Last Assessment & Plan: Sore throat for the last 5 daus,, since Monday of this week, Progressively getting worse, has burning in the throat, hurts some to swallow. Has cough with green sputum early in the morning, and only in the morning, He had some chills, no fever, Myalgia which is severe today, Some SOB wand coughing while lying flat is preventing him from sleeping flat. Laboratory test 07/16/2012 11/04/2014 Overview: PSA done [facility] 07/06/2012 - 0.89 Pain in joint, shoulder region 04/06/2012 04/12/2016 GERD (gastroesophageal reflux disease) 06/28/2010 07/17/2017 Diabetes mellitus 06/25/2010 09/04/2012 Headache(784.0) 10/30/2007 01/15/2018 Dysthymic disorder 7 Overview: Depression (non-psychotic) Other malaise and fatigue Other specified disease of h air and hair follicles 11/04/2014 documented as of this encounter (statuses as of 04/19/2023) [facility]2017 History of Past illness Narrative* Problem Noted Date Diagnosed Date Resolved Date Hemorrhoids, internal 06/16/2017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: Added automatically from request for surgery [id number] Bright red rectal bleeding 06/16/2017 1 09/17/2016 Overview: Added automatically from request for surgery [id number] History of colonic polyps 06/16/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: Added automatically from request for surgery [id number] Calculus of gallbladder with out cholecystitis without obstruction 07/15/2016 01/15/2018 Sore throat (viral) 02/01/2014 11/05/19 15 Last Assessment & Plan: Sore throat for the last 5 daus,, since Monday of this week, Progressively getting worse, has burning in the throat, hurts some to swallow. Has cough with green sputum early in the morning, and only in the morning, He had some chills, no fever, Myalgia which is severe today, Some SOB wand coughing while lying flat is preventing him from sleeping flat. Laboratory test 07/16/2012 11/04/2014 Overview: PSA done [facility] 07/06/2012 - 0.89 Pain in joint, shoulder region 04/06/2012 04/12/2016 GERD (gastroesophageal reflux disease) 06/28/2010 07/17/2017 Diabetes mellitus 06/25/2010 09/04/2012 Headache(784.0) 10/30/2007 01/15/2018 Dysthymic disorder 7 Overview: Depression (non-psychotic) Other malaise and fatigue Other specified disease of h air and hair follicles 11/04/2014 documented as of this encounter (statuses as of 06/18/2023) [facility] [place] [facility] Diagnosis Encounter for screening for malignant neoplasm of colon- Primary Special screening for malignant neoplasms, colon Personal history of colonic polyps documented in this encounter [facility] note* Diagnosis History of colonic polyps- Primary Personal history of colonic polyps Epigastric pain Abdominal pain, epigastric documented in this encounter [facility] note* Diagnosis Diverticulosis- Primary Diverticulosis of colon (without mention of hemorrhage) History of colonic polyps Personal history of colonic polyps Gastritis and duodenitis Unspecified gastritis and gastroduodenitis without mention of hemorrhage documented in this encounter [facility] note* Diagnosis Calculus of gallbladder without cholecystitis without obstruction- Primary Calculus of gallbladder without mention of cholecystitis or obstruction RUQ pain Abdominal pain, right upper quadrant documented in this encounter [facility] note* Diagnosis Pre-operative examination- Primary Preoperative examination, unspecified Other hyperlipidemia Coronary artery disease involving nikolai coronary artery of nikolai heart without angina 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 Hypertrophy of prostate with urinary obstruction and other lower urinary tract symptoms (LUTS) Controlled type 2 diabetes mellitus without complication, without long-term current use of insulin (HCC) COPD with chronic bronchitis (HCC) Obstructive chronic bronchitis without exacerbation Gastroesophageal reflux disease with esophagitis, unspecified whether hemorrhage Bilateral hearing loss, unspecified hearing loss type Obesity, Class I, BMI 30-34.9 Obesity, unspecified Calculus of gallbladder without cholecystitis without obstruction Calculus of gallbladder without mention of cholecystitis or obstruction RUQ pain Abdominal pain, right upper quadrant documented in this encounter [facility] note* Diagnosis Calculus of gallbladder with chronic cholecystitis without obstruction- Primary Calculus of gallbladder with other cholecystitis, without mention of obstruction Back spasm Other symptoms referable to back documented in this encounter [facility] note* Diagnosis Gastroesophageal reflux disease with esophagitis, unspecified whether hemorrhage- Primary Constipation, unspecified constipation type History of colonic polyps Personal history of colonic polyps Epigastric pain Abdominal pain, epigastric documented in this encounter [facility] for referral (narrative)* Outpatient Procedure (Routine) - Pending Review Specialty Diagnoses / Procedures Referred By Jeffrey jacob Referred To Contact [facility] Diagnoses Epigastric pain Procedures EGD DIAGNOSTIC ESOPHAGOGASTRODUODENOSC OPY TRANSORAL DIAGNOSTIC Leroy Alcocer MD [address] [place] [address] [facility] [address] [place] [address] Referral ID Status Reason Start Date Expiration Date Visits Requested Visits Authorized [id number] Pending Review Auto-Generat ed Referral 09/16/2022 09/16/2023 1 1 * Outpatient Procedure (Routine) - Authorized Specialty Diagnoses / Procedures Referred By Jeffrey jacob Referred To Contact [facility] Diagnoses History of colonic polyps Procedures COLONOSCOPY SCREENING COLONOSCOPY FLX DX W/COLLJ SPEC WHEN PFRMFredrick Khan PA-C [address] [address] [facility] [address] [place] [address] Referral ID Status Reason Start Date Expiration Date Visits Requested Visits Authorized [id number] Authorized Auto-Generat ed Referral 2 08/09/2023 1 1 [facility] for referral (narrative)* Outpatient Procedure (Routine) - Closed Specialty Diagnoses / Procedures Referred By Jeffrey jacob Referred To Contact [facility] Diagnoses Epigastric pain Procedures EGD DIAGNOSTIC ESOPHAGOGASTRODUODENOSC OPY TRANSORAL DIAGNOSTIC Leroy Alcocer MD [address] [place] [address] [address] Referral ID Status Reason Start Date Expiration Date V isits Requested Visits Authorized [id number] Closed Auto-Generate d Referral 09/16/2022 09/16/2023 1 1 * Outpatient Procedure (Routine) - Closed Specialty Diagnoses / Procedures Referred By Jeffrey jacob Referred To Contact [facility] Diagnoses History of colonic polyps Procedures COLONOSCOPY SCREENING COLONOSCOPY FLX DX W/COLLJ SPEC WHEN PFFredrick Reynolds PA-C [address] [address] [facility] [address] [place] [address] Referral ID Status Reason Start Date Expiration Date V isits Requested Visits Authorized [id number] Closed Auto-Generate d Referral 08/09/2022 08/09/2023 1 1 [facility] for visit Narrative* Outpatient Procedure (Routine) - Closed Specialty Diagnoses / Procedures Referred By Jeffrey jacob Referred To Contact [facility] Diagnoses Epigastric pain Procedures EGD DIAGNOSTIC ESOPHAGOGASTRODUODENOSC OPY TRANSORAL DIAGNOSTIC Leroy Alcocer MD [address] [place] [address] [facility] [address] [place] [address] Referral ID Status Reason Start Date Expiration Date V isits Requested Visits Authorized [id number] Closed Auto-Generate d Referral 09/16/2022 09/16/2023 1 1 [facility] Summary Purpose Family History No Family History Records FoundNo Family History Records FoundNo Family History Records FoundNo Family History Records Found Advance Directives No Advanced Directives Records FoundNo Advanced Directives Records FoundNo Advanced Directives Records FoundNo Advanced Directives Records Found Medications Administered Section Inactive Administered Medications - up to 3 most recent administrations Medication Order MAR Action Action Date Dose Rate Site benzocaine 20% 1 Jolley (TOPEX) 1 Jolley, TOPICAL, DIRECTED, Starting on Mon09/27/22 at 1000, Until Mon09/27/22 at 1359, DOSING DIRECTED BY PHYSICIAN FOR PROCEDURAL SEDATION ONLY - Pharmaceutical Waste: Aerosol -, Intraprocedure Given by LIP 09/27/2022 9:43 AM EST 3 Sprays diphenhydrAMINE 12.5-50 mg injection (BENADRYL) 12.5-50 mg, INTRAVENOUS, DIRECTED, Starting on Mon09/27/22 at 1000, Until Mon09/27/22 at 1359, DOSING DIRECTED BY PHYSICIAN FOR PROCEDURAL SEDATION ONLY, Intraprocedure Given 09/27/2022 10:00 AM EST 50 mg fentaNYL 50 mcg/mL 25-100 mcg injection (SUBLIMAZE) 25-100 mcg, INTRAVENOUS, DIRECTED, Starting on Mon09/27/22 at 1000, Until Mon09/27/22 at 1359, DOSING DIRECTED BY PHYSICIAN FOR PROCEDURAL SEDATION ONLY, Intraprocedure Given by LIP 09/27/2022 9:46 AM EST 50 mcg Additional Source Comments (unrecognized sect ion and content) No Status Records FoundNo Status Records FoundNo Status Records FoundNo Status Records Found INFORMATION SOURCE (unrecogn ized section and content) DATE CREATED AUTHOR AUTHOR'S ORGANIZ ATION 02/05/2018 [facility] DATE CREATED AUTHOR AUTHOR'S ORGANIZ ATION 11/16/2022 [facility] DATE CREATED AUTHOR AUTHOR'S ORGANIZ ATION 11/26/[address] [facility] Source Comments (unrecognize d section and content) In the event this informatio n is protected by the Federal Confidentiality of Alcohol and Drug Abuse Patient Records regulations: The Federal rules restrict any use of the information to criminally investigate or prosecute any alcohol or drug abuse patient.[facility] the event this information is protected by the Federal Confidentiality of Alcohol and Drug Abuse Patient Records regulations: The Federal rules restrict any use of the information to criminally investigate or prosecute any alcohol or drug abuse patient.[facility] the event this information is protected by the Federal Confidentiality of Alcohol and Drug Abuse Patient Records regulations: The Federal rules restrict any use of the information to criminally investigate or prosecute any alcohol or drug abuse patient.[facility] the event this information is protected by the Federal Confidentiality of Alcohol and Drug Abuse Patient Records regulations: The Federal rules restrict any use of the information to criminally investigate or prosecute any alcohol or drug abuse patient.[facility] the event this information is protected by the Federal Confidentiality of Alcohol and Drug Abuse Patient Records regulations: The Federal rules restrict any use of the information to criminally investigate or prosecute any alcohol or drug abuse patient.[facility] the event this information is protected by the Federal Confidentiality of Alcohol and Drug Abuse Patient Records regulations: The Federal rules restrict any use of the information to criminally investigate or prosecute any alcohol or drug abuse patient.[facility] the event this information is protected by the Federal Confidentiality of Alcohol and Drug Abuse Patient Records regulations: The Federal rules restrict any use of the information to criminally investigate or prosecute any alcohol or drug abuse patient.[facility] the event this information is protected by the Federal Confidentiality of Alcohol and Drug Abuse Patient Records regulations: The Federal rules restrict any use of the information to criminally investigate or prosecute any alcohol or drug abuse patient.[facility] the event this information is protected by the Federal Confidentiality of Alcohol and Drug Abuse Patient Records regulations: The Federal rules restrict any use of the information to criminally investigate or prosecute any alcohol or drug abuse patient.[facility] the event this information is protected by the Federal Confidentiality of Alcohol and Drug Abuse Patient Records regulations: The Federal rules restrict any use of the information to criminally investigate or prosecute any alcohol or drug abuse patient.[facility] the event this information is protected by the Federal Confidentiality of Alcohol and Drug Abuse Patient Records regulations: The Federal rules restrict any use of the information to criminally investigate or prosecute any alcohol or drug abuse patient.[facility] the event this information is protected by the Federal Confidentiality of Alcohol and Drug Abuse Patient Records regulations: The Federal rules restrict any use of the information to criminally investigate or prosecute any alcohol or drug abuse patient.[facility] Reason for Visit (unrecogniz ed section and content) Reason Comments 09/27/2022 colon asc Patient Update Reason Comments Add EGD Reason Comments Follow Up colonoscopy Reason Comments Results CT scan from [facility] Reason Comments Abdominal Pain Reason Comments Consult Reason Comments Request Outside Medical Records Reason Comments Post op complications Reason Comments Post Op Lap walt Reason Onset Date Comments Refill Request 04/18/2023 Care Teams (unrecognized sec tion and content) Remediation Technician Relationship Specialty Start Date End Date Marshall Yousif MD [address] [place] [address] (Fax) PCP - General Internal Medicine 10/31/22 Remediation Technician Relationship Specialty Start Date End Date Marshall Yousif MD [address] [place] [address] PCP - General Internal Medicine 10/31/22 Remediation Technician Relationship Specialty Start Date End Date Marshall Yousif MD [address] [place] [address] (Fax) PCP - General Internal Medicine 10/31/22 Remediation Technician Relationship Specialty Start Date End Date Marshall Yousif MD [address] [place] [address] (work) PCP - General Internal Medicine 10/31/22 FOR RECORDS PERTAINING TO PATIENTS WHO ARE OR HAVE BEEN ENROLLED IN A CHEMICAL DEPENDENCY/SUBSTANCEABUSE PROGRAM, SOME INFORMATION MAY BE OMITTED. This clinical summary was aggregated from multiple sources. Caution should be exercised in using it in the provision of clinical care. This summary normalizes information from multiple sources, and as a consequence, information in this document may materially change the coding, format and clinical context of patient data. In addition, data may be omitted in some cases. CLINICAL DECISIONS SHOULD BE BASED ON THE PRIMARY CLINICAL RECORDS. [facility]. provides no warranty or guarantee of the accuracy or completeness of information in this document.
[2023-08-14 16:51] LABS: AST(SGOT) 17 U/L (15-37); Alanine Aminotransfer ALT/SGPT 30 U/L (16-61); Albumin, Serum 3.4 g/dL (3.2-5.0); Alkaline Phosphatase 123 U/L (45-117); Anion Gap 6 (5-15); BUN 26 mg/dL (7-18); BUN/Creat Ratio 19.7 RATIO (10-20); Bilirubin, Direct 0.31 mg/dL (0.00-0.30); Calcium,Total 9.4 mg/dL (8.5-10.1); Chloride 102 mmol/L (98-107); Creatinine, Serum 1.32 mg/dL (0.70-1.30); EST Glomerular Filtration Rate 57 mL/min (>60); Est Glom Filt Rate - Afr Amer 69 mL/min (>60); Estimated Creatinine Clearance 53.77 ml/min; Globulin 3.9 g/dL (2.2-4.2); Glucose 168 mg/dL (74-106); Potassium 3.9 mmol/L (3.5-5.1); Protein, Total 7.3 g/dL (6.4-8.2); Sodium Level 136 mmol/L (136-145); Troponin-I HS 7 pg/mL (3.0-78.0)
[2023-08-14 17:02] LABS: International Normalized Ratio 0.9; Prothrombin Time (Protime)PT. 12.4 SECONDS (11.7-14.9)
[2023-08-14 17:03] LABS: Partial Thromboplast Time 30.8 Seconds (24.1-36.2)
[2023-08-14 17:06] LABS: D-Dimer Quantitative (DVT/PE) 0.84 FEU/ug/m (0.27-0.49)
--- NOTE | 2023-08-14 17:17 | CT_ITS ---
EXAM: CT HEAD WITHOUT INTRAVENOUS CONTRAST CLINICAL INDICATION: weakness TECHNIQUE: Multiple axial images were obtained of the head without intravenous contrast. This CT exam was performed using one or more of the following dose reduction techniques: automated exposure control, adjustment of the mA and/or kV according to patient size, and/or use of iterative reconstruction technique. COMPARISON: 01/30/2020 FINDINGS: BRAIN AND EXTRA-AXIAL SPACES: There is mild enlargement of ventricular system and cortical sulci. No intra- or extra-axial hemorrhage. No evidence of acute infarct. No intracranial mass or mass effect. There is preservation of the bobby/white matter interface. Posterior fossa structures are unremarkable. Basal cisterns are patent. BONES/JOINTS: Unremarkable. No discrete lytic or blastic abnormalities. SINUSES: Unremarkable as visualized. Clear. MASTOID AIR CELLS: Unremarkable. Clear. ORBITS: Visualized globes, extraocular muscles, optic nerves and retrobulbar fat appear unremarkable. CT/Brain/Head without Contrast IMPRESSION: No acute intracranial abnormality. There has been no change from the reference examination. Electronically Signed: Robert Whittington MD at 18:56 EST ,
--- NOTE | 2023-08-14 17:17 | CT_ITS ---
EXAM: CT LUMBAR SPINE WITH INTRAVENOUS CONTRAST CLINICAL INDICATION: post-op pain TECHNIQUE: Helically acquired images were obtained of the lumbar spine with intravenous contrast. 2D reformats were reviewed. This CT exam was performed using one or more of the following dose reduction techniques: automated exposure control, adjustment of the mA and/or kV according to patient size, and/or use of iterative reconstruction technique. CONTRAST: IV 100mL [id number] COMPARISON: No relevant prior studies available. FINDINGS: VERTEBRAE: There are postsurgical changes from a bilateral laminectomy at L3 and L4. No fracture. No traumatic subluxation. No discrete lytic or blastic abnormality. Normal alignment. DISCS/SPINAL CANAL/NEURAL FORAMINA: There is disc space narrowing at L2-3 and L3-4. VASCULATURE: Visualized abdominal aorta is not dilated. LYMPH NODES: Unremarkable. No retroperitoneal adenopathy. CT/Spine Lumbar WITH Contrast IMPRESSION: No acute osseous abnormalities in the spine. There are postsurgical changes with bilateral laminectomy at L3 and L4. There are degenerative changes with disc space narrowing and facet hypertrophy. Electronically Signed: Robert Whittington MD at 18:58 EST ,
--- NOTE | 2023-08-14 17:17 | CT_ITS ---
EXAM: CT ANGIOGRAPHY CHEST WITHOUT AND WITH INTRAVENOUS CONTRAST CLINICAL INDICATION: sob, elevated d-dimer TECHNIQUE: Helically acquired angiography images were obtained of the chest without and with intravenous contrast. This CT exam was performed using one or more of the following dose reduction techniques: automated exposure control, adjustment of the mA and/or kV according to patient size, and/or use of iterative reconstruction technique. MIP reconstructed images were created and reviewed. CONTRAST: IV 100mL [id number] COMPARISON: No relevant prior studies available. FINDINGS: PULMONARY ARTERIES: Unremarkable. Normal in caliber. No evidence of pulmonary embolism. AORTA: Unremarkable. Normal in caliber. No evidence of dissection. GREAT VESSELS OF AORTIC ARCH: Unremarkable. Normal in caliber. No evidence of dissection. LUNGS AND PLEURAL SPACES: Unremarkable. No mass. No consolidation or edema. No pleural effusion or thickening. No pneumothorax. HEART: Unremarkable. Heart size is normal. No pericardial effusion. No significant coronary artery calcifications. MEDIASTINUM: Unremarkable. No mediastinal or hilar adenopathy. Esophagus is unremarkable. No hiatal hernia. THYROID: Unremarkable. No thyroid lesions. BONES/JOINTS: Unremarkable. No suspicious lytic or blastic abnormality. CT/CTA Chest W/WO Contrast IMPRESSION: Negative CTA chest. Electronically Signed: Robert Whittington MD at 18:59 EST ,
[2023-08-14 17:40] VITALS: BP 139/84; PULSE 79; RESP 16; TEMP 36.9; O2SAT 96
[2023-08-14 17:42] LABS: Bacteria 0 SEEN /hpf (None Seen); Mucous, Urine 0 SEEN /hpf (<or=2+); Red Blood Cells-Urine 0 SEEN /hpf (0-5); Squamous Epithelial Cells - UA 0 SEEN /hpf (0-5); White Blood Cells 0 SEEN /hpf (0-5)
[2023-08-14 17:59] LABS: Color, Urine Yellow (Yellow); Glucose, Dipstick Normal (Normal); Ketone-Dipstick 5 mg/dl (Negative); Leukocyte Esterase-Dipstick Negative /ul (Negative); Nitrite-Dipstick Negative (Negative); Occult Blood-Urine Negative /ul (Negative); Protein-Dipstick Negative (Negative); Specific Gravity, Urine 1.015 (1.002-1.030); Urine Bilirubin Dipstick Negative (Negative); Urine Clarity Sl. Cloudy (Clear); Urine Urobilinogen 4 mg/dl (Normal)
[2023-08-14 18:23] VITALS: PULSE 74; RESP 28; O2SAT 95
[2023-08-14 19:40] VITALS: BP 125/68; PULSE 65; RESP 17; O2SAT 93
[2023-08-14 20:15] LABS: Reflex Lactate? Y
== END 2023-08-14 19:41 | disposition home or self-care (01) ==
PROVIDERS: Emergency Provider Emergency Medicine; PCP Internal Medicine; Visit Provider Emergency Medicine
DX: B34.9 Viral infection, unspecified (principal); E11.9 Type 2 diabetes mellitus without complications; R06.02 Shortness of breath; Z98.890 Other specified postprocedural states; J45.909 Unspecified asthma, uncomplicated; I25.10 Atherosclerotic heart disease of native coronary artery without angina pectoris; E78.00 Pure hypercholesterolemia, unspecified; F17.220 Nicotine dependence, chewing tobacco, uncomplicated; M54.9 Dorsalgia, unspecified
CPT/HCPCS: 70450; 71045; 71275; 72132; 80048; 80076; 81001; 83605; 83880; 84484; 85025; 85379; 85610; 85730; 87040; 87086; 87428; 93005; 96360; 96361; 99284; J7030; Q9967

== ENCOUNTER → 2023-08-21 | Outpatient (CLI) | payer MEDICARE, SELFPAY ==
[2023-08-21 15:34] LABS: Absolute Lymphocyte Count 1.86 X10^3/uL (0.83-4.51); Absolute Neutrophil Count 4.2 X10^3/uL (2.0-7.7); Basophil# 0.03 X10^3/uL; Basophil% 0.4 % (0-1); Eosinophil# 0.13 X10^3/uL; Eosinophils% 1.9 % (0-5); Hematocrit 40.2 % (40-54); Hemoglobin 12.8 g/dL (13.0-16.5); Lymphocyte # 1.86 X10^3/ul (0.83-4.51); Lymphocyte % 27.5 % (19-41); Mean Corp Hgb Conc 31.8 g/dL (32-36); Mean Corpuscular Hgb 28.6 pg (27.0-32.0); Mean Corpuscular Volume 89.9 fL (80-94); Mean Platelet Vol. 8.2 fl (6.2-12.0); Monocyte# 0.54 X10^3/uL; NRBC Flagged by Analyzer 0 % (0-5); Neutrophil # 4.16 X10^3/uL (2.7-7.7); Neutrophil % 61.6 % (47-70); Platelet Count 320 K/mm3 (150-450); RBC Distribution Width CV 12.7 % (11.6-14.6); RBC Distribution Width SD 41.7 fl (35.1-43.9); Red Blood Count 4.47 M/mm3 (4.6-6.2); White Blood Count 6.8 K/mm3 (4.4-11.0)
[2023-08-21 16:00] LABS: Vitamin D,25 Hydroxy 42.4 ng/mL
[2023-08-21 16:20] LABS: ALB/GLOB Ratio 0.9 RATIO (0.9-2.4); AST(SGOT) 16 U/L (15-37); Alanine Aminotransfer ALT/SGPT 28 U/L (16-61); Albumin, Serum 3.5 g/dL (3.2-5.0); Alkaline Phosphatase 117 U/L (45-117); Anion Gap 6 (5-15); BUN 18 mg/dL (7-18); BUN/Creat Ratio 19.7 RATIO (10-20); Calcium,Total 9.2 mg/dL (8.5-10.1); Chloride 102 mmol/L (98-107); Creatinine, Serum 0.91 mg/dL (0.70-1.30); EST Glomerular Filtration Rate 87 mL/min (>60); Est Glom Filt Rate - Afr Amer 105 mL/min (>60); Glucose 118 mg/dL (74-106); Magnesium 1.9 mg/dL (1.6-2.6); PSA,Total- Diagnostic 1.95 ng/mL (0.0-4.0); Protein, Total 7.5 g/dL (6.4-8.2); Sodium Level 136 mmol/L (136-145); Thyroid Stim Hormone (TSH) 3.05 uIU/mL (0.358-3.74)
== END | disposition home or self-care (01) ==
LOC: BIMLAB 13:56
PROVIDERS: PCP Internal Medicine; Referring Provider Internal Medicine; Visit Provider Internal Medicine
DX: N40.1 Benign prostatic hyperplasia with lower urinary tract symptoms (principal); R35.0 Frequency of micturition; Z98.890 Other specified postprocedural states; R32 Unspecified urinary incontinence; N13.8 Other obstructive and reflux uropathy; B34.9 Viral infection, unspecified; E55.9 Vitamin D deficiency, unspecified; I10 Essential (primary) hypertension
CPT/HCPCS: 36415; 80053; 82306; 83735; 84153; 84443; 85025

== ENCOUNTER → 2023-09-26 | Outpatient (CLI) | payer MEDICARE, SELFPAY ==
[2023-09-26 13:37] LABS: Bacteria 0 SEEN /hpf (None Seen); Mucous, Urine 0 SEEN /hpf (<or=2+); Squamous Epithelial Cells - UA 0 SEEN /hpf (0-5); White Blood Cells 0 SEEN /hpf (0-5)
[2023-09-26 14:02] LABS: Color, Urine Yellow (Yellow); Glucose, Dipstick Normal (Normal); Ketone-Dipstick 5 mg/dl (Negative); Leukocyte Esterase-Dipstick 25 /ul (Negative); Nitrite-Dipstick Negative (Negative); Occult Blood-Urine Negative /ul (Negative); Protein-Dipstick 30 mg/dl (Negative); Specific Gravity, Urine 1.015 (1.002-1.030); Urine Clarity Clear (Clear); Urine Urobilinogen 1 mg/dl (Normal)
[2023-09-26 14:10] LABS: Urine Bilirubin Dipstick 1 mg/dL (Negative)
[2023-09-26 14:12] LABS: Red Blood Cells-Urine 0-5 SEEN /hpf (0-5)
== END | disposition home or self-care (01) ==
PROVIDERS: PCP Internal Medicine; Referring Provider Physician Assistant; Visit Provider Physician Assistant
DX: R10.9 Unspecified abdominal pain (principal); R11.10 Vomiting, unspecified
CPT/HCPCS: 81001; 87086

== ENCOUNTER → 2023-09-27 | Outpatient (CLI) | payer MEDICARE, SELFPAY ==
[2023-09-27 08:47] LABS: Bacteria 0 SEEN /hpf (None Seen); Mucous, Urine 0 SEEN /hpf (<or=2+); Red Blood Cells-Urine 0 SEEN /hpf (0-5); Squamous Epithelial Cells - UA 0 SEEN /hpf (0-5); White Blood Cells 0 SEEN /hpf (0-5)
--- OUTSIDE RECORDS SUMMARY | 2023-09-27 09:06 | XMS RPT_ITS | CCD ---
Author Name Unknown Address [address] [place] [address] Organization [facility] Care Team Providers Care Applications Engineer Manufacturing Name Role Phone HOLLY COHEN Unavailable Unavailable HOLLY COHEN Unavailable Unavailable Jose Luis Lopez Unavailable Unavailable [...] Propensity to adverse reactions (disorder) 5 Itching [facility] Repository (16 sources) Contrast media; Translations: [CONTRAST DYE] Propensity to adverse reactions (disorder) 9 [facility] Repository (2 sources) cortisone; Translations: [CORTISONE] Drug Allergy 4 [facility] Repository (16 sources) sertraline; Translations: [SERTRALINE] Drug Allergy 4 [facility] Repository (16 sources) FD AND C BLUE NO.1; Translations: [FD AND C BLUE NO.1] Propensity to adverse reactions (disorder) 9 [facility] Repository Medications Completed/Discontinued Medications Medication Drug [...] disease (14 sources) Atherosclerotic heart disease of [place] coronary artery without angina pectoris; Translations: [Coronary [...] 177.8 cm Fredrick Titi PA-C Work Phone: [facility] 11-18-2022 09:25-0400 Body temperature 98.01 [degF] Fredrick Titi PA-C Work Phone: [facility] 11-18-2022 09:25-0400 Body weight 96.62 kg Fredrick Titi PA-C Work Phone: [facility] 11-18-2022 09:25-0400 Diastolic blood pressure 78 mm[Hg] Fredrick Glenaire PA-C Work Phone: [facility] 11-18-2022 09:25-0400 Heart rate 89 /min Fredrick Titi PA-C Work Phone: [facility] 11-18-2022 09:25-0400 SaO2% (BldA) [Mass fraction] 95 % Fredrick Glenaire PA-C Work Phone: [facility] 11-18-2022 09:25-0400 Systolic blood pressure 140 mm[Hg] Fredrick Glenaire PA-C Work Phone: [facility] 11-04-2022 11:02-0400 Body height 177.8 cm [facility] 1 Work Phone: [facility] 11-04-2022 11:02-0400 Body temperature 98.2 [degF] [facility] 1 Work Phone: [facility] 11-04-2022 11:02-0400 Body weight 99.34 kg [facility] 1 Work Phone: [facility] 11-04-2022 11:02-0400 Diastolic blood pressure 82 mm[Hg] [facility] 1 Work Phone: [facility] 11-04-2022 11:02-0400 Heart rate 69 /min [facility] 1 Work Phone: [facility] 11-04-2022 11:02-0400 Respiratory rate 14 /min [facility] 1 Work Phone: [facility] 11-04-2022 11:02-0400 SaO2% (BldA) [Mass fraction] 97 % [facility] 1 Work Phone: [facility] 11-04-2022 11:02-0400 Systolic blood pressure 132 mm[Hg] [facility]acc 1 Work Phone: [facility] 10-20-2022 08:49-0500 Body height 177.8 cm Leroy Alcocer MD Work Phone: [facility] 10-20-2022 08:49-0500 Body temperature 97.9 [degF] Leroy Alcocer MD Work Phone: [facility] 10-20-2022 08:49-0500 Body weight 100.25 kg Leroy Alcocer MD Work Phone: [facility] 10-20-2022 08:49-0500 Diastolic blood pressure 78 mm[Hg] Leroy Alcocer MD Work Phone: [facility] 10-20-2022 08:49-0500 Heart rate 80 /min Leroy Alcocer MD Work Phone: [facility] 10-20-2022 08:49-0500 Respiratory rate 12 /min Leroy Alcocer MD Work Phone: [facility] 10-20-2022 08:49-0500 SaO2% (BldA) [Mass fraction] 96 % Leroy Alcocer MD Work Phone: [facility] 10-20-2022 08:49-0500 Systolic blood pressure 122 mm[Hg] Leroy lAcocer MD Work Phone: [facility] 10-07-2022 15:25-0500 Body temperature 97.9 [degF] Fredrick Titi PA-C Work Phone: [facility] 10-07-2022 15:25-0500 Diastolic blood pressure 88 mm[Hg] Fredrick Titi PA-C Work Phone: [facility] 10-07-2022 15:25-0500 Heart rate 82 /min Fredrick Titi PA-C Work Phone: [facility] 10-07-2022 15:25-0500 SaO2% (BldA) [Mass fraction] 95 % Fredrick Glenaire PA-C Work Phone: [facility] 10-07-2022 15:25-0500 Systolic blood pressure 112 mm[Hg] Fredrick Titi PA-C Work Phone: [facility] 09-27-2022 11:00-0500 Diastolic blood pressure 67 mm[Hg] Leroy Alcocer MD Work Phone: [facility] 09-27-2022 11:00-0500 Heart rate 67 /min Leroy Alcocer MD Work Phone: [facility] 09-27-2022 11:00-0500 Respiratory rate 16 /min Leroy Alcocer MD Work Phone: [facility] 09-27-2022 11:00-0500 SaO2% (BldA) [Mass fraction] 93 % Leroy Alcocer MD Work Phone: [facility] 09-27-2022 11:00-0500 Systolic blood pressure 149 mm[Hg] Leroy Alcocer MD Work Phone: [facility] 09-27-2022 07:58-0500 Body temperature 97.39 [degF] Leroy Alcocer MD Work Phone: [facility] 09-27-2022 07:58-0500 Body weight 100.1 kg Leroy Alcocer MD Work Phone: [facility] 08-09-2022 13:11-0500 Body height 177.8 cm Fredrick Glenaire PA-C Work Phone: [facility] 08-09-2022 13:11-0500 Body temperature 97.2 [degF] Fredrick Titi PA-C Work Phone: [facility] 08-09-2022 13:11-0500 Body weight 100.06 kg Fredrick Glenaire PA-C Work Phone: [facility] 08-09-2022 13:11-0500 Diastolic blood pressure 76 mm[Hg] Fredrick Titi PA-C Work Phone: [facility] 08-09-2022 13:11-0500 Heart rate 82 /min Fredrick Titi PA-C Work Phone: [facility] 08-09-2022 13:11-0500 SaO2% (BldA) [Mass fraction] 97 % Fredrick Titi PA-C Work Phone: [facility] 08-09-2022 13:11-0500 Systolic blood pressure 108 mm[Hg] Fredrick Glenaire PA-C Work Phone: [facility] Encounters Encounter Date Encounter Type Care Provider Facility Start: 04-18-2023 Refill Leroy richardson MD Work Phone: General Surgery Procedures Date Procedure Procedure Detail Performing Clinician Start: 09-27-2022 Level iv surg pathology gross&microscopic exam Leroy Alcocer MD Work Phone: Start: 09-27-2022 Colonoscopy flx dx w/collj spec when pfrmd Fredrick Glenaire PA-C Work Phone: Start: 09-27-2022 Esophagogastroduodenoscopy transoral diagnostic Leroy Alcocer MD Work Phone: Start: 09-27-2022 Gluc bld gluc mntr dev cleared fda spec home use Leroy Alcocer MD Work Phone: Start: 09-27-2022 Colonoscopy Fredrick Walls PA-C Work Phone: Start: 06-21-2017 Colonoscopy Fredrick Walls PA-C Work Phone: Plan of Treatment Date Care Activity Detail Author Start: 09-27-2027 Colonoscopy COLONOSCOPY [facility] Start: 09-27-2027 COLORECTAL CANCER SCREENING COLORECTAL CANCER SCREENING [facility] Start: 04-14-2023 Covid-19 Vaccine () Covid-19 Vaccine () [facility] Start: 04-14-2023 Influenza vaccination [facility] Start: 08-14-2022 ADVANCE DIRECTIVE DISCUSSION ADVANCE DIRECTIVE DISCUSSION [facility] Start: 08-14-2022 DEPRESSION ASSESSMENT DEPRESSION ASSESSMENT [facility] Start: 06-21-2022 Colonoscopy COLONOSCOPY [facility] Start: 06-21-2022 COLORECTAL CANCER SCREENING COLORECTAL CANCER SCREENING [facility] Start: 04-14-2022 Influenza vaccination INFLUENZA (#1) [facility] Start: 07-10-2021 COVID-19 VACCINE (4 - Booster for Pfizer series) COVID-19 VACCINE (4 - Booster for Pfizer series) [facility] Start: 07-10-2021 COVID-19 VACCINE (4 - Pfizer series) COVID-19 VACCINE (4 - Pfizer series) [facility] Start: 04-17-2020 Hepatitis B screening URINE ALBUMIN:CREATININE RATIO [facility] Start: 04-09-2020 Hepatitis B surface antibody level LDL CHOLESTEROL [facility] Start: 03-20-2020 PNEUMOCOCCAL: 65+ (3 - PPSV23 if available, else PCV20) PNEUMOCOCCAL: 65+ (3 - PPSV23 if available, else PCV20) [facility] Start: 03-20-2020 PNEUMOCOCCAL: 65+ (3 - PPSV23 or PCV20) PNEUMOCOCCAL: 65+ (3 - PPSV23 or PCV20) [facility] Start: 01-28-2020 Shingrix Vaccine (2 of 2) Shingrix Vaccine (2 of 2) [facility] Start: 11-29-2019 Hepatitis C antibody, confirmatory test DILATED RETINAL EXAM [facility] Start: 11-22-2019 ANNUAL PCP TEAM CHRONIC DISEASE VISIT ANNUAL PCP TEAM CHRONIC DISEASE VISIT [facility] Start: 10-10-2019 Hemoglobin A1c/Hemoglobin.total in Blood HBA1C [facility] Start: 07-17-2019 3 comp foot exam completed DIABETIC FOOT EXAM [facility] Start: 2013 Hepatitis B Vaccine (1 of 3 - Risk 3-dose series) Hepatitis B Vaccine (1 of 3 - Risk 3-dose series) [facility] Start: 2013 RSV Vaccine (1 - 1-dose 60+ series) RSV Vaccine (1 - 1-dose 60+ series) [facility] Start: 03-08-2013 Urine microalbumin profile [facility] Start: 2003 SHINGRIX VACCINE (1 of 2) SHINGRIX VACCINE (1 of 2) [facility] Start: 1998 COLOGUARD (FIT-DNA) COLOGUARD (FIT-DNA) [facility] Start: [address] COLONOGRAPHY [facility] Start: 1998 FECAL OCCULT BLOOD FECAL OCCULT BLOOD [facility] Start: 1998 SIGMOIDOSCOPY SIGMOIDOSCOPY [facility] Start: 1983 Zoledronic acid therapy ALPHA-1 ANTITRYPSIN DEFICIENCY SCREENING [facility] Start: 1971 SPIROMETRY SPIROMETRY [facility] End: 09-16-2023 EGD DIAGNOSTIC EGD DIAGNOSTIC Endoscopy Routine Epigastric pain 1 Occurrences starting 09/16/2022 until 09/16/2023 [facility] Work Phone: Immunizations Immunization Date Immunization Notes Care Provider Fa chata 03-14-2022 influenza virus vacc ine, unspecified formulation Leroy Alcocer MD Work Phone: [facility] 07-17-2018 influenza, high dose seasonal, preservative-free Fredrickkranthi Walls PA-Real Work Phone: [facility] Work Phone: 07-17-2018 pneumococcal conjuga te vaccine, 13 valent Fredrickkranthi Walls PA-C Work Phone: [facility] Work Phone: 07-17-2017 influenza, injectabl e, quadrivalent, contains preservative Fredrick Walls PA-C Work Phone: [facility] 07-15-2016 influenza, injectabl e, quadrivalent, contains preservative Fredrick Glenaire PA-C Work Phone: [facility] 07-29-2015 influenza, injectabl e, quadrivalent, contains preservative Fredrick Glenaire PA-C Work Phone: [facility] Work Phone: 03-20-2015 pneumococcal polysaccharide vaccine, 23 valent Fredrick Titi PA-C Work Phone: [facility] 06-10-2014 influenza, seasonal, injectable Fredrick Titi PA-C Work Phone: [facility] 03-07-2013 tetanus and diphther ia toxoids, not adsorbed, for adult use Fredrick Titi PA-C Work Phone: [facility] 06-14-2012 influenza virus vacc ine, unspecified formulation Fredrick Glenaire PA-C Work Phone: [facility] 06-25-2010 influenza virus vacc ine, unspecified formulation Fredrick Glenaire PA-C Work Phone: [facility] 06-05-2009 influenza virus vacc ine, unspecified formulation Fredrick Titi PA-C Work Phone: [facility] Work Phone: 07-18-2007 influenza virus vacc ine, unspecified formulation Fredrick Glenaire PA-C Work Phone: [facility] Work Phone: 06-13-2006 influenza virus vacc ine, unspecified formulation Fredrick Titi PA-C Work Phone: [facility] Work Phone: Payers Date Payer Category Payer Medicare [id number] 2007 Medicare [employer] [place] [id number] 2007-Present [phone] [address] [place] [address] HMO [id number] Social History Date Type Detail Facility Start: 10-13-2011 End: 09-27-2022 Tobacco smoking status NHIS Ex-smoker [facility] History of tobacco use Current smoker [facility] History of tobacco use Cigarette Smoker [facility] Start: 10-13-2011 End: 09-27-2022 Tobacco use and exposure User of smokeless tobacco [facility] History of tobacco use Chews [facility] Start: 08-09-2022 End: 09-28-2022 Alcohol intake Current drinker of alcohol (finding) [facility] Start: 08-09-2022 End: 08-28-2022 Alcohol intake [facility] Start: 06-20-2017 Alcohol Comment rarely [facility] Start: 1955 Sex Assigned At Not on file [facility] Start: 09-27-2022 Tobacco Comment snuff 1 can a week [facility] Start: 10-20-2022 End: 11-18-2022 Alcohol intake Ex-drinker (finding) [facility] Start: 10-20-2022 Tobacco Comment One can a week .States only smoked occasionally years ago. [facility] Start: 08-28-2022 End: 11-18-2022 Tobacco use panel [facility] Adult Depression Screening Assessment 0 [facility] Medical Equipment Procedure Code Equipment Code Equipment [...] Type Note Facility 11-18-2022 Note HNO ID: [id number] Author: Fredrick Walls PA-C Service: ? Author Type: Physician Top Trimmer Type: Progress Notes Filed: 11/22/2022 4:57 PM Note Text: FOLLOW UP VISIT - CHOLECYSTECTOMY NAME: Abdirizak Ch [facility] NO[facility] [id number] DATE OF SERVICE: 11/18/2022 : 1955 REFERRING [...] with me as needed. Fredrick Walls PA-C [facility] 11-18-2022 Instructions Fredrick Walls PA-C - 11/18/2022 10:01 AM EDT The following instructions are important for you related to your office visit today with the [facility] General Surgeons. INSTRUCTIONS FOLLOWING YOU RECENT GALLBLADDER [...] you should contact our office immediately @ [phone] and ask to be transferred to the General Surgery department. documented in this encounter [facility] 11-18-2022 History of Present illness Narrative FOLLOW UP VISIT - CHOLECYSTECTOMY NAME: Abdirizak Ch [facility] NO.: [id number] DATE OF SERVICE: 11/18/2022 : 1955 REFERRING [...] Fredrick Walls PA-C documented in this encounter [facility] 11-18-2022 Nurse Note REVIEW OF SYSTEMS: General: [...] Clara Lira RN documented in this encounter [facility] 11-14-2022 Miscellaneous Notes Patient was evaluated at [facility] ER, CT scan of the abdomen and pelvis was completed. Diagnosed with back spasm. Carol Vega RN Called patient back to updated. Alethea stated that she called 911 and ambulance was there. Yes, agree with urgent ED evaluation for severe abdominal pain Patient called back, patient is yelling in pain, advised patient to go to ER. Alethea asked if [facility] would treat patient, informed them yes they will however Dr Alcocer is not at that hospital and is doing surgeries in [place] today. voiced understanding. Alethea # [phone] Abdirizak's , Alethea, called. Abdirizak had laparoscopic [...] of the pain. They use [facility] in [place]. Alethea also wanted us to know that they tried reaching out, over the weekend to the provider number that is on their discharge paperwork, but that number is to [facility] and the erecting crane operator refused to page Dr. Alcocer, stating that he does not work at their facility. I apologized to Alethea, stating that I would reach out and see who can update that paperwork and correct that error. Carol Vega RN documented in this encounter [facility] 11-11-2022 Note HNO ID: [id number] Author: Joni Crooks RN Service: Nursing Author Type: Registered Nurse Type: Nursing Progress Note Filed: 11/11/2022 12:59 PM Note Text: PT up to bathroom, ambulated with close supervision, tolerated well. 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 Copy made for Angela Norris CNP and original sent to [facility]. Araceli Davis LPN Called and spoke with Katerina at [facility], she will fax last office visit and cardiac records. Araceli Davis LPN Received labs from Dr. Yousif's office. Copy made for Angela Norris CNP and original sent to [employer] through [employer]. Araceli Davis LPN Received a call from [facility] stating Dr. Mckeon office has moved and new phone number is [phone]. I called Dr. Linda craig office and spoke with Katrina. Requested labs especially A1c to be faxed, fax number given. Araceli Davis LPN Called and left message at Dr. Mathews office requesting patients most recent labs especially A1c to be faxed. Callback number and fax number given. Araceli Davis LPN Called and left message with Katerina at [facility] to return call. Callback number given. Araceli Davis LPN Please request most recent labs, especially A1c from PCP's office. And cardiac records, last OV from [facility]. DOS 11/11/2022 documented in this encounter [facility] 11-04-2022 History and physical note HISTORY AND [...] Without Long-Term Current Use of Insulin ([facility]) COVID-19 Immunization Status Overdue - COVID-19 VACCINE [...] Dr. Pedro that after being evaluated by Ferdrick Walls the patient had an ER visit [...] fevers. Neurological: No history of TIA's, stroke, MILK POWDER GRINDER tumor, impaired sensorium, hemiplegia, paraplegia or quadraplegia. No neurological symptoms or problems. Respiratory: Positive for: asthma and COPD. Negative for: pneumonia within 6 weeks, tobacco use, URI < 2 weeks and obstructive sleep apnea. Cardiovascular: Positive for: anticoagulation therapy (ASA), CAD, hyperlipidemia (on rx) and open heart surgery Negative for: arrhythmia, atrial fibrillation, chest pain, CHF, congenital heart defect, DVT/PE, hypertension, recent CO, murmur/valvular heart disease, PVD and valve surgery. [...] for: joint pain. Skin: +rosacea, following [facility] PAST MEDICAL HISTORY Diagnosis Date Asthma CAD [...] 06/16/2017 Added automatically from request for surgery [id number] Impaired fasting glucose 07/15/2016 Myalgia and myositis, [...] A1C Date Value 04/09/2019 Test sent to [facility]. % 11/05/2018 Test sent to [facility]. % 06/28/2018 Test sent to [facility]. % 07/17/2017 Test sent to [facility]. % 06/23/2016 Test sent to [facility]. % 06/23/2016 6.1 No results found for this or any previous visit (from the past 8760 hour(s)). No results found for this or any previous visit (from the past 95238 hour(s)). Assessment Patient has the following medical conditions which may affect nereida-operative course: Other hyperlipidemia Assessment: c/w statin CAD (coronary artery disease) Assessment: CABG x2011, following [facility], daily ASA, denies CP, palpitations or SOB, [...] equal to 35 kg/m^2 STOP-Bang Score: 4 [id number] Score: Age: 65-74 Sex: male CHF history: No Hypertension history: Yes Stroke/TIA/thromboembolism history: No Vascular disease history: Yes Diabetes history: Yes [id number] Score: 4 ARISCAT Score: Age: 51-80 Preoperative [...] and consent discussed: yes. Patient / Responsible Democrat agrees to proceed: yes Patient / Surrogate [...] AM PAGER/CONTACT #: documented in this encounter [facility] 11-04-2022 Instructions Angela Norris APRN.CNP - 11/04/2022 11:12 AM EDT PATIENT PREOPERATIVE INSTRUCTIONS No ref. provider found has scheduled you for your procedure at this surgery center: [facility]: [phone] -- [address] [place] [id number]. Please read below carefully for your personalized [...] Procedures: - YOU MUST HAVE A RESPONSIBLE GENETIC ENGINEER TAKE YOU HOME. A NUCLEAR SUPERVISING OPERATOR OR PROFESSOR OF BIBLICAL STUDIES CANNOT BE MADE A RESPONSIBLE GENETIC ENGINEER. - We recommend that a responsible person [...] Advance Directive, please fax a copy to [phone] or email to for it to be [...] Angela Norris APRN.CNP documented in this encounter [facility] 10-21-2022 Note HNO ID: [id number] Author: Leroy Alcocer MD Service: ? Author [...] 06/16/2017 Added automatically from request for surgery [id number] Impaired fasting glucose 07/15/2016 Myalgia and myositis, [...] YRS/> REDUCIBLE 2 (more content not included)... [facility] 10-21-2022 History of Present illness [...] 06/16/2017 Added automatically from request for surgery [id number] Impaired fasting glucose 07/15/2016 Myalgia and myositis, [...] Procedure: LAPAROSCOPIC CHOLECYSTECTOMY WITH INTRAOPERATIVE CHOLEANGIOGRAM - [id number] Planned antibiotic: Ancef 2gm IVPB information security director to OR SCDs needed - Yes Top Trimmer Needed - No Diagnoses: (K80.20) Calculus of gallbladder without cholecystitis without obstruction (primary encounter diagnosis) (R10.11) RUQ pain My findings have been communicated to via shared medical record. This note will be forwarded to No primary care provider on file.. Leroy Alcocer MD documented in this encounter [facility] 10-20-2022 Miscellaneous Notes Called and spoke to Linette [facility], CT scan dept. Pushed image per Dr Alcocer request. Lilliam Cota LPN documented in this encounter [facility] 10-07-2022 Note HNO ID: [id number] Author: Fredrick Walls PA-C Service: ? Author Type: Physician Top Trimmer Type: Progress Notes Filed: 10/13/2022 2:07 PM Note Text: FOLLOW UP VISIT - ENDOSCOPY NAME: Abdirizak Bates [facility] NO.: [id number] DATE OF SERVICE: 10/07/2022 : 1955 REFERRING [...] which included preparing to see the patient, [id number] patient care, completing clinical documentation, obtaining and/or reviewing separately obtained history, counseling and educating the patient/family/caregiver, independently interpreting results (not separately reported), and communicating results to the patient/family/caregiver. Fredrick Walls PA-C [facility] 10-07-2022 Instructions Fredrick Walls PA-C [...] to your office visit today with the [facility]. INSTRUCTIONS FOLLOWING A NORMAL COLONOSCOPY [...] you should contact our office immediately @ [phone] and ask to be transferred to the General Surgery department. documented in this encounter [facility] 10-07-2022 History of Present illness Narrative FOLLOW UP VISIT - ENDOSCOPY NAME: Abdirizak Ch [facility] NO.: [id number] DATE OF SERVICE: 10/07/2022 : 1955 REFERRING [...] which included preparing to see the patient, [id number] patient care, completing clinical documentation, obtaining and/or reviewing separately obtained history, counseling and educating the patient/family/caregiver, independently interpreting results (not separately reported), and communicating results to the patient/family/caregiver. Fredrick Walls PA-C documented in this encounter [facility] 09-27-2022 Nurse Note Oxygen applied at 2L [...] on left side. documented in this encounter [facility] 09-27-2022 History and physical note UPDATED PROCEDURAL [...] 06/16/2017 Added automatically from request for surgery [id number] Impaired fasting glucose 07/15/2016 Myalgia and myositis, [...] entered by the nurse and reviewed by ia Nursing Notes: Mel Alonso LPN 08/09/2022 1:45 [...] patient was offered a surgery/procedure at a [facility] facility. I have counseled the patient regarding [...] which included preparing to see the patient, [id number] patient care, completing clinical documentation, obtaining and/or [...] 06/16/2017 Added automatically from request for surgery [id number] Impaired fasting glucose 07/15/2016 Myalgia and myositis, [...] entered by the nurse and reviewed by ia Nursing Notes: Mel Alonso LPN 08/09/2022 1:45 [...] patient was offered a surgery/procedure at a [facility] facility. I have counseled the patient regarding [...] which included preparing to see the patient, [id number] patient care, completing clinical documentation, obtaining and/or reviewing separately obtained history, performing a medically appropriate examination, and care coordination (not separately reported). Fredrick Walls PA-C documented in this encounter [facility] 09-16-2022 Miscellaneous Notes EGD added to procedure Fela Ambriz Supervisor [employer] Pt calling to inform that Dr. Yousif had ordered EGD for pt. There is an order in Epic from [facility]. Pt asking if that can be done the same day as the colonoscopy. Please contact patient to confirm date. Aspen Sainz documented in this encounter [facility] 09-16-2022 Miscellaneous Notes Called by patient's PCP Dr. Batista who also is having upper symptoms will add EGD and perform orosco biopsies. 09/27/2022 COLON ASC documented in this encounter [facility] 08-09-2022 Note HNO ID: [id number] Author: Fredrick Walls PA-C Service: ? Author Type: Physician Top Trimmer Type: Progress Notes Filed: 08/16/2022 1:00 AM [...] 06/16/2017 Added automatically from request for surgery [id number] Impaired fasting glucose 07/15/2016 Myalgia and myositis, [...] 1 distal transverse COLONOSCOP W/ OR W/O [facility] SPEC 07/06/10 Normal COLONOSCOP W/ OR W/O [facility] SPE[facility] 06/20/2017 Colonoscopy EGD W/O [facility] SPECIMEN W/BX 07/06/10 gastritis EGD W/O [facility] SPECIMEN W/BX 10/07/14 duodenitis, gastritis, esophagitis EGD W/O [facility] SPECIMEN W/BX 09/13/2016 continued inflammation HEMORRHOIDECT INTER/EXTER [...] Age of Ons (more content not included)... [facility] 08-09-2022 Nurse Note REVIEW OF [...] Mel Alonso LPN documented in this encounter [facility] 08-09-2022 History of Present illness Narrative HISTORY [...] 06/16/2017 Added automatically from request for surgery [id number] Impaired fasting glucose 07/15/2016 Myalgia and myositis, [...] entered by the nurse and reviewed by ia Nursing Notes: Mel Alonso LPN 08/09/2022 1:45 [...] patient was offered a surgery/procedure at a [facility] facility. I have counseled the patient regarding [...] which included preparing to see the patient, [id number] patient care, completing clinical documentation, obtaining and/or reviewing separately obtained history, performing a medically appropriate examination, and care coordination (not separately reported). Fredrick Walls PA-C documented in this encounter [facility] documented as of this encounter (statuses as of 08/18/2022) [facility]2017 History of Past illness Narrative* Problem Noted Date Resolved Date Hemorrhoids, internal 06/16/2017 01/15/2018 Overview: Added automatically from request for surgery [id number] Bright red rectal bleeding 06/16/201707/17 Overview: Added automatically from request for surgery [id number] History of colonic polyps 06/16/20172016 Overview: Added automatically from request for surgery [id number] Calculus of gallbladder with out cholecystitis without [...] Laboratory test 07/16/2012 11/04/2014 Overview: PSA done [facility] 07/06/2012 - 0.89 Pain in joint, shoulder region 04/06/2012 0 04/12/2016 GERD (gastroesophageal reflux disease) 0 07/17/2017 Diabetes mellitus 06/25/2010 09/04/2012 Headache(784.0) 10/30/2007 01/15/2018 Dysthymic disorder 07/17/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) Other malaise and fatigue 2015 Other specified disease of hair and hair follicl es 11/04/2014 documented as of this encounter (statuses as of 09/16/2022) [facility] History of Past illness Narrative* Problem Noted Date Resolved Date Hemorrhoids, internal 06/16/2017 01/15/2018 Overview: Added automatically from request for surgery [id number] Bright red rectal bleeding 06/16/201707/17 Overview: Added automatically from request for surgery [id number] History of colonic polyps 06/16/20172016 Overview: Added automatically from request for surgery [id number] Calculus of gallbladder with out cholecystitis without [...] Laboratory test 07/16/2012 11/04/2014 Overview: PSA done [facility] 07/06/2012 - 0.89 Pain in joint, shoulder region 04/06/2012 0 04/12/2016 GERD (gastroesophageal reflux disease) 0 07/17/2017 Diabetes mellitus 06/25/2010 09/04/2012 Headache(784.0) 10/30/2007 01/15/2018 Dysthymic disorder 07/17/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) Other malaise and fatigue 2015 Other specified disease of hair and hair follicl es 11/04/2014 documented as of this encounter (statuses as of 09/16/2022) [facility] History of Past illness Narrative* Problem Noted Date Resolved Date Hemorrhoids, internal 06/16/2017 01/15/2018 Overview: Added automatically from request for surgery [id number] Bright red rectal bleeding 06/16/201707/17 Overview: Added automatically from request for surgery [id number] History of colonic polyps 06/16/20172016 Overview: Added automatically from request for surgery [id number] Calculus of gallbladder with out cholecystitis without [...] Laboratory test 07/16/2012 11/04/2014 Overview: PSA done [facility] 07/06/2012 - 0.89 Pain in joint, shoulder region 04/06/2012 0 04/12/2016 GERD (gastroesophageal reflux disease) 0 07/17/2017 Diabetes mellitus 06/25/2010 09/04/2012 Headache(784.0) 10/30/2007 01/15/2018 Dysthymic disorder 07/17/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) Other malaise and fatigue 2015 Other specified disease of hair and hair follicl es 11/04/2014 documented as of this encounter (statuses as of 10/13/2022) [facility] History of Past illness Narrative* Problem Noted Date Resolved Date Hemorrhoids, internal 06/16/2017 01/15/2018 Overview: Added automatically from request for surgery [id number] Bright red rectal bleeding 06/16/201707/17 Overview: Added automatically from request for surgery [id number] History of colonic polyps 06/16/20172016 Overview: Added automatically from request for surgery [id number] Calculus of gallbladder with out cholecystitis without [...] Laboratory test 07/16/2012 11/04/2014 Overview: PSA done [facility] 07/06/2012 - 0.89 Pain in joint, shoulder region 04/06/2012 0 04/12/2016 GERD (gastroesophageal reflux disease) 0 07/17/2017 Diabetes mellitus 06/25/2010 09/04/2012 Headache(784.0) 10/30/2007 01/15/2018 Dysthymic disorder 07/17/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) Other malaise and fatigue 2015 Other specified disease of hair and hair follicl es 11/04/2014 documented as of this encounter (statuses as of 10/20/2022) [facility] History of Past illness Narrative* Problem Noted Date Resolved Date Hemorrhoids, internal 06/16/2017 01/15/2018 Overview: Added automatically from request for surgery [id number] Bright red rectal bleeding 06/16/201707/17 Overview: Added automatically from request for surgery [id number] History of colonic polyps 06/16/20172016 Overview: Added automatically from request for surgery [id number] Calculus of gallbladder with out cholecystitis without [...] Laboratory test 07/16/2012 11/04/2014 Overview: PSA done [facility] 07/06/2012 - 0.89 Pain in joint, shoulder region 04/06/2012 0 04/12/2016 GERD (gastroesophageal reflux disease) 0 07/17/2017 Diabetes mellitus 06/25/2010 09/04/2012 Headache(784.0) 10/30/2007 01/15/2018 Dysthymic disorder 07/17/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) Other malaise and fatigue 2015 Other specified disease of hair and hair follicl es 11/04/2014 documented as of this encounter (statuses as of 10/26/2022) [facility] History of Past illness Narrative* Problem Noted Date Resolved Date Hemorrhoids, internal 06/16/2017 01/15/2018 Overview: Added automatically from request for surgery [id number] Bright red rectal bleeding 06/16/201707/17 Overview: Added automatically from request for surgery [id number] History of colonic polyps 06/16/20172016 Overview: Added automatically from request for surgery [id number] Calculus of gallbladder with out cholecystitis without [...] Laboratory test 07/16/2012 11/04/2014 Overview: PSA done [facility] 07/06/2012 - 0.89 Pain in joint, shoulder region 04/06/2012 0 04/12/2016 GERD (gastroesophageal reflux disease) 0 07/17/2017 Diabetes mellitus 06/25/2010 09/04/2012 Headache(784.0) 10/30/2007 01/15/2018 Dysthymic disorder 07/17/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) Other malaise and fatigue 2015 Other specified disease of hair and hair follicl es 11/04/2014 documented as of this encounter (statuses as of 11/09/2022) [facility] History of Past illness Narrative* Problem Noted Date Resolved Date Hemorrhoids, internal 06/16/2017 01/15/2018 Overview: Added automatically from request for surgery [id number] Bright red rectal bleeding 06/16/201707/17 Overview: Added automatically from request for surgery [id number] History of colonic polyps 06/16/20172016 Overview: Added automatically from request for surgery [id number] Calculus of gallbladder with out cholecystitis without [...] Laboratory test 07/16/2012 11/04/2014 Overview: PSA done [facility] 07/06/2012 - 0.89 Pain in joint, shoulder region 04/06/2012 0 04/12/2016 GERD (gastroesophageal reflux disease) 0 07/17/2017 Diabetes mellitus 06/25/2010 09/04/2012 Headache(784.0) 10/30/2007 01/15/2018 Dysthymic disorder 07/17/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) Other malaise and fatigue 2015 Other specified disease of hair and hair follicl es 11/04/2014 documented as of this encounter (statuses as of 11/09/2022) [facility] History of Past illness Narrative* Problem Noted Date Resolved Date Hemorrhoids, internal 06/16/2017 01/15/2018 Overview: Added automatically from request for surgery [id number] Bright red rectal bleeding 06/16/201707/17 Overview: Added automatically from request for surgery [id number] History of colonic polyps 06/16/20172016 Overview: Added automatically from request for surgery [id number] Calculus of gallbladder with out cholecystitis without [...] Laboratory test 07/16/2012 11/04/2014 Overview: PSA done [facility] 07/06/2012 - 0.89 Pain in joint, shoulder region 04/06/2012 0 04/12/2016 GERD (gastroesophageal reflux disease) 0 07/17/2017 Diabetes mellitus 06/25/2010 09/04/2012 Headache(784.0) 10/30/2007 01/15/2018 Dysthymic disorder 07/17/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) Other malaise and fatigue 2015 Other specified disease of hair and hair follicl es 11/04/2014 documented as of this encounter (statuses as of 11/18/2022) [facility] History of Past illness Narrative* Problem Noted Date Resolved Date Hemorrhoids, internal 06/16/2017 01/15/2018 Overview: Added automatically from request for surgery [id number] Bright red rectal bleeding 06/16/201707/17 Overview: Added automatically from request for surgery [id number] History of colonic polyps 06/16/20172016 Overview: Added automatically from request for surgery [id number] Calculus of gallbladder with out cholecystitis without [...] Laboratory test 07/16/2012 11/04/2014 Overview: PSA done [facility] 07/06/2012 - 0.89 Pain in joint, shoulder region 04/06/2012 0 04/12/2016 GERD (gastroesophageal reflux disease) 0 07/17/2017 Diabetes mellitus 06/25/2010 09/04/2012 Headache(784.0) 10/30/2007 01/15/2018 Dysthymic disorder 07/17/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) Other malaise and fatigue 2015 Other specified disease of hair and hair follicl es 11/04/2014 documented as of this encounter (statuses as of 11/23/2022) [facility] History of Past illness Narrative* Problem Noted Date Diagnosed Date Resolved Date Hemorrhoids, internal 06/16/2017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: Added automatically from request for surgery [id number] Bright red rectal bleeding 06/16/2017 1 09/17/2016 Overview: Added automatically from request for surgery [id number] History of colonic polyps 06/16/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: Added automatically from request for surgery [id number] Calculus of gallbladder with out cholecystitis without [...] Laboratory test 07/16/2012 11/04/2014 Overview: PSA done [facility] 07/06/2012 - 0.89 Pain in joint, shoulder region 04/06/2012 04/12/2016 GERD (gastroesophageal reflux disease) 06/28/2010 07/17/2017 Diabetes mellitus 06/25/2010 09/04/2012 Headache(784.0) 10/30/2007 01/15/2018 Dysthymic disorder 7 Overview: Depression (non-psychotic) Other malaise and fatigue Other specified disease of h air and hair follicles 11/04/2014 documented as of this encounter (statuses as of 04/19/2023) [facility] History of Past illness Narrative* Problem Noted Date Diagnosed Date Resolved Date Hemorrhoids, internal 06/16/2017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: Added automatically from request for surgery [id number] Bright red rectal bleeding 06/16/2017 1 09/17/2016 Overview: Added automatically from request for surgery [id number] History of colonic polyps 06/16/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: Added automatically from request for surgery [id number] Calculus of gallbladder with out cholecystitis without [...] Laboratory test 07/16/2012 11/04/2014 Overview: PSA done [facility] 07/06/2012 - 0.89 Pain in joint, shoulder region 04/06/2012 04/12/2016 GERD (gastroesophageal reflux disease) 06/28/2010 07/17/2017 Diabetes mellitus 06/25/2010 09/04/2012 Headache(784.0) 10/30/2007 01/15/2018 Dysthymic disorder 7 Overview: Depression (non-psychotic) Other malaise and fatigue Other specified disease of h air and hair follicles 11/04/2014 documented as of this encounter (statuses as of 06/18/2023) [facility] [place] [facility] Diagnosis Encounter for screening for malignant neoplasm of colon- Primary Special screening for malignant neoplasms, colon Personal history of colonic polyps documented in this encounter [facility] note* Diagnosis History of colonic polyps- Primary Personal history of colonic polyps Epigastric pain Abdominal pain, epigastric documented in this encounter [facility] note* Diagnosis Diverticulosis- Primary Diverticulosis of colon (without mention of hemorrhage) History of colonic polyps Personal history of colonic polyps Gastritis and duodenitis Unspecified gastritis and gastroduodenitis without mention of hemorrhage documented in this encounter [facility] note* Diagnosis Calculus of gallbladder without cholecystitis without obstruction- Primary Calculus of gallbladder without mention of cholecystitis or obstruction RUQ pain Abdominal pain, right upper quadrant documented in this encounter [facility] note* Diagnosis Pre-operative examination- Primary Preoperative examination, unspecified Other hyperlipidemia 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 documented in this encounter [facility] note* Diagnosis Calculus of gallbladder with chronic cholecystitis without obstruction- Primary Calculus of gallbladder with other cholecystitis, without mention of obstruction Back spasm Other symptoms referable to back documented in this encounter [facility] note* Diagnosis Gastroesophageal reflux disease with esophagitis, unspecified whether hemorrhage- Primary Constipation, unspecified constipation type History of colonic polyps Personal history of colonic polyps Epigastric pain Abdominal pain, epigastric documented in this encounter [facility] for referral (narrative)* Outpatient Procedure (Routine) - Pending Review Specialty Diagnoses / Procedures Referred By Jeffrey jacob Referred To Contact [facility] Diagnoses Epigastric pain Procedures EGD DIAGNOSTIC ESOPHAGOGASTRODUODENOSC OPY TRANSORAL DIAGNOSTIC Leroy Alcocer MD [address] [place] [address] [facility] [place] [address] [place] [address] Referral ID Status Reason Start Date Expiration Date Visits Requested Visits Authorized [id number] Pending Review Auto-Generat ed Referral 09/16/2022 09/16/2023 1 1 * Outpatient Procedure (Routine) - Authorized Specialty Diagnoses / Procedures Referred By Jeffrey jacob Referred To Contact [facility] Diagnoses History of colonic polyps Procedures COLONOSCOPY SCREENING COLONOSCOPY FLX DX W/COLLJ SPEC WHEN PFRMFredrick Khan PA-C [address] [address] [facility] [address] [place] [address] Referral ID Status Reason Start Date Expiration Date Visits Requested Visits Authorized [id number] Authorized Auto-Generat ed Referral 2 08/09/2023 1 1 [facility] for referral (narrative)* Outpatient Procedure (Routine) - Closed Specialty Diagnoses / Procedures Referred By Jeffrey jacob Referred To Contact [facility] Diagnoses Epigastric pain Procedures EGD DIAGNOSTIC ESOPHAGOGASTRODUODENOSC OPY TRANSORAL DIAGNOSTIC Leroy Alcocer MD [address] [place] [address] [address] Referral ID Status Reason Start Date Expiration Date V isits Requested Visits Authorized [id number] Closed Auto-Generate d Referral 09/16/2022 09/16/2023 1 1 * Outpatient Procedure (Routine) - Closed Specialty Diagnoses / Procedures Referred By Jeffrey jacob Referred To Contact [facility] Diagn[facility] History of colonic polyps Procedures COLONOSCOPY SCREENING COLONOSCOPY FLX DX W/COLLJ SPEC WHEN PFFredrick Reynolds PA-C [address] [address] [facility] [address] [place] [address] Referral ID Status Reason Start Date Expiration Date V isits Requested Visits Authorized [id number] Closed Auto-Generate d Referral 08/09/2022 08/09/2023 1 1 [facility] for visit Narrative* Outpatient Procedure (Routine) - Closed Specialty Diagnoses / Procedures Referred By Jeffrey jacob Referred To Contact [facility] Diagnoses Epigastric pain Procedures EGD DIAGNOSTIC ESOPHAGOGASTRODUODENOSC OPY TRANSORAL DIAGNOSTIC Leroy Alcocer MD [address] [place] [address] [facility] [place] [address] [place] [address] Referral ID Status Reason Start Date Expiration Date V isits Requested Visits Authorized [id number] Closed Auto-Generate d Referral 09/16/2022 09/16/2023 1 1 [facility] Summary Purpose Family History No Family History [...] Date Dose Rate Site benzocaine 20% 1 [place] (TOPEX) 1 [place], TOPICAL, DIRECTED, Starting on Mon09/27/22 at 1000, [...] DATE CREATED AUTHOR AUTHOR'S ORGANIZ ATION 02/05/2018 [facility] DATE CREATED AUTHOR AUTHOR'S ORGANIZ ATION 11/16/2022 [facility] DATE CREATED AUTHOR AUTHOR'S ORGANIZ ATION 11/26/2022 [facility] Source Comments (unrecognize d section and content) In the event this informatio n is protected by the Federal Confidentiality of Alcohol and Drug Abuse Patient Records regulations: The Federal rules restrict any use of the information to criminally investigate or prosecute any alcohol or drug abuse patient.[facility] the event this information is protected by the Federal Confidentiality of Alcohol and Drug Abuse Patient Records regulations: The Federal rules restrict any use of the information to criminally investigate or prosecute any alcohol or drug abuse patient.[facility] the event this information is protected by the Federal Confidentiality of Alcohol and Drug Abuse Patient Records regulations: The Federal rules restrict any use of the information to criminally investigate or prosecute any alcohol or drug abuse patient.[facility] the event this information is protected by the Federal Confidentiality of Alcohol and Drug Abuse Patient Records regulations: The Federal rules restrict any use of the information to criminally investigate or prosecute any alcohol or drug abuse patient.[facility] the event this information is protected by the Federal Confidentiality of Alcohol and Drug Abuse Patient Records regulations: The Federal rules restrict any use of the information to criminally investigate or prosecute any alcohol or drug abuse patient.[facility] the event this information is protected by the Federal Confidentiality of Alcohol and Drug Abuse Patient Records regulations: The Federal rules restrict any use of the information to criminally investigate or prosecute any alcohol or drug abuse patient.[facility] the event this information is protected by the Federal Confidentiality of Alcohol and Drug Abuse Patient Records regulations: The Federal rules restrict any use of the information to criminally investigate or prosecute any alcohol or drug abuse patient.[facility] the event this information is protected by the Federal Confidentiality of Alcohol and Drug Abuse Patient Records regulations: The Federal rules restrict any use of the information to criminally investigate or prosecute any alcohol or drug abuse patient.[facility] CenterIn the event this information is protected by the Federal Confidentiality of Alcohol and Drug Abuse Patient Records regulations: The Federal rules restrict any use of the information to criminally investigate or prosecute any alcohol or drug abuse patient.[facility] Center[facility] the event this information is protected by the Federal Confidentiality of Alcohol and Drug Abuse Patient Records regulations: The Federal rules restrict any use of the information to criminally investigate or prosecute any alcohol or drug abuse patient.[facility] CenterIn the event this information is protected by the Federal Confidentiality of Alcohol and Drug Abuse Patient Records regulations: The Federal rules restrict any use of the information to criminally investigate or prosecute any alcohol or drug abuse patient.[facility] CenterIn the event this information is protected by the Federal Confidentiality of Alcohol and Drug Abuse Patient Records regulations: The Federal rules restrict any use of the information to criminally investigate or prosecute any alcohol or drug abuse patient.[facility] Reason for Visit (unrecogniz ed section and content) Reason Comments 09/27/2022 colon asc Patient Update Reason Comments Add EGD Reason Comments Follow Up colonoscopy Reason Comments Results CT scan from [facility] Reason Comments Abdominal Pain Reason Comments Consult Reason Comments Request Outside Medical Records Reason Comments Post op complications Reason Comments Post Op Lap walt Reason Onset Date Comments Refill Request 04/18/2023 Care Teams (unrecognized sec tion and content) Applications Engineer Manufacturing Relationship Specialty Start Date End Date Marshall Yousif MD [address] [place] [address] (Fax) PCP - General Internal Medicine 10/31/22 Applications Engineer Manufacturing Relationship Specialty Start Date End Date Marshall Yousif MD [address] [place] [address] PCP - General Internal Medicine 10/31/22 Applications Engineer Manufacturing Relationship Specialty Start Date End Date Marshall Yousif MD [address] [place] [address] (Fax) PCP - General Internal Medicine 10/31/22 Applications Engineer Manufacturing Relationship Specialty Start Date End Date Marshall Yousif MD [address] [place] [address] (work) PCP - General Internal Medicine 10/31/22 [...] BE BASED ON THE PRIMARY CLINICAL RECORDS. [facility]. provides no warranty or guarantee of the accuracy or completeness of information in this document.
[2023-09-27 09:34] LABS: Glucose, Dipstick Normal (Normal); Ketone-Dipstick Negative (Negative); Leukocyte Esterase-Dipstick Negative /ul (Negative); Nitrite-Dipstick Negative (Negative); Occult Blood-Urine Negative /ul (Negative); Protein-Dipstick Negative (Negative); Urine Bilirubin Dipstick Negative (Negative); Urine Urobilinogen Normal (Normal)
[2023-09-27 09:54] LABS: Color, Urine YELLOW (Yellow); Urine Clarity Clear (Clear)
[2023-09-27 10:03] LABS: Absolute Neutrophil Count 6.5 X10^3/uL (2.0-7.7); Basophil# 0.04 X10^3/uL; Basophil% 0.4 % (0-1); Eosinophil# 0.03 X10^3/uL; Eosinophils% 0.3 % (0-5); Hematocrit 40.4 % (40-54); Hemoglobin 13.1 g/dL (13.0-16.5); Lymphocyte % 22.8 % (19-41); Mean Corp Hgb Conc 32.4 g/dL (32-36); Mean Corpuscular Hgb 28.4 pg (27.0-32.0); Mean Corpuscular Volume 87.4 fL (80-94); Mean Platelet Vol. 8.3 fl (6.2-12.0); Monocyte# 0.88 X10^3/uL; Monocyte% 9.1 % (0-10); NRBC Flagged by Analyzer 0 % (0-5); Neutrophil # 6.46 X10^3/uL (2.7-7.7); Platelet Count 352 K/mm3 (150-450); RBC Distribution Width SD 40.9 fl (35.1-43.9); Red Blood Count 4.62 M/mm3 (4.6-6.2); White Blood Count 9.7 K/mm3 (4.4-11.0)
[2023-09-27 10:10] LABS: Erythrocyte Sedimentation Rate 12 mm/hr (0-20)
[2023-09-27 11:02] LABS: ALB/GLOB Ratio 0.9 RATIO (0.9-2.4); AST(SGOT) 18 U/L (15-37); Alanine Aminotransfer ALT/SGPT 27 U/L (16-61); Albumin, Serum 3.7 g/dL (3.2-5.0); Alkaline Phosphatase 106 U/L (45-117); Anion Gap 9 (5-15); BUN 14 mg/dL (7-18); BUN/Creat Ratio 16.3 RATIO (10-20); CRP < 2.90 mg/L (0.0-3.0); Calcium,Total 9.4 mg/dL (8.5-10.1); Chloride 101 mmol/L (98-107); Creatinine, Serum 0.86 mg/dL (0.70-1.30); EST Glomerular Filtration Rate 93 mL/min (>60); Est Glom Filt Rate - Afr Amer 113 mL/min (>60); Glucose 145 mg/dL (74-106); Potassium 3.7 mmol/L (3.5-5.1); Protein, Total 7.7 g/dL (6.4-8.2); Sodium Level 136 mmol/L (136-145); Thyroid Stim Hormone (TSH) 1.61 uIU/mL (0.358-3.74)
== END | disposition home or self-care (01) ==
LOC: LAB 08:45
PROVIDERS: PCP Internal Medicine; Referring Provider Internal Medicine; Visit Provider Internal Medicine
DX: J32.9 Chronic sinusitis, unspecified (principal); R82.2 Biliuria; R10.9 Unspecified abdominal pain; I10 Essential (primary) hypertension
CPT/HCPCS: 36415; 80053; 81001; 84443; 85025; 85652; 86140

== ENCOUNTER 2023-10-01 14:59 | Emergency (ER) | payer MEDICARE, SELFPAY ==
[2023-10-01 15:01] VITALS: BP 114/81; PULSE 107; RESP 18; TEMP 36.3; O2SAT 98
[2023-10-01 15:36] LABS: Absolute Lymphocyte Count 2.11 X10^3/uL (0.83-4.51); Absolute Neutrophil Count 6.2 X10^3/uL (2.0-7.7); Basophil# 0.04 X10^3/uL; Basophil% 0.4 % (0-1); Eosinophil# 0.02 X10^3/uL; Eosinophils% 0.2 % (0-5); Hematocrit 40.1 % (40-54); Hemoglobin 13.2 g/dL (13.0-16.5); Lymphocyte # 2.11 X10^3/ul (0.83-4.51); Lymphocyte % 22.9 % (19-41); Mean Corp Hgb Conc 32.9 g/dL (32-36); Mean Corpuscular Hgb 28.4 pg (27.0-32.0); Mean Corpuscular Volume 86.2 fL (80-94); Mean Platelet Vol. 8.2 fl (6.2-12.0); Monocyte% 8.7 % (0-10); NRBC Flagged by Analyzer 0 % (0-5); Neutrophil # 6.22 X10^3/uL (2.7-7.7); Neutrophil % 67.5 % (47-70); Platelet Count 316 K/mm3 (150-450); RBC Distribution Width CV 12.9 % (11.6-14.6); RBC Distribution Width SD 39.9 fl (35.1-43.9); Red Blood Count 4.65 M/mm3 (4.6-6.2); White Blood Count 9.2 K/mm3 (4.4-11.0)
[2023-10-01 15:42] VITALS: BMI 27.3
--- NOTE | 2023-10-01 15:42 | EKG12_ITS ---
Test Reason : SOB Blood Pressure : / mmHG Vent. Rate : 070 BPM Atrial Rate : 070 BPM P-R Int : 178 ms QRS Dur : 108 ms QT Int : 412 ms P-R-T Axes : 080 000 031 degrees QTc Int : 444 ms Normal sinus rhythm Normal ECG Confirmed by MARCOS RUIZ, JULIANO ([id number]), assistant editor FREDRICK BABB ([id number]) on 10/02/2023 10:19:08 AM Referred By: Confirmed By:JULIANO RODRÍGUEZ MD
[2023-10-01 15:43] VITALS: RESP 18
[2023-10-01] MEDS: DiphenhydrAMINE 50 MG/ML Syringe 12.5 MG IV (15:49)
[2023-10-01] MEDS: Metoclopramide 10 MG/2 ML Vial 5 MG IV (15:50)
--- NOTE | 2023-10-01 15:51 | CT_ITS ---
STUDY: CT Abdomen And Pelvis W/ Contrast Injection 10/01/2023 5:49 PM REASON FOR EXAM: Male, 68 years old. Abdominal pain Abdominal pain -- IV PO Contrast Individualized dose optimization techniques were used for this CT. COMPARISON: 11.14.22. TECHNIQUE: CT Abdomen And Pelvis W/ Contrast Injection IV 100mL [id number] FINDINGS: There are atherosclerotic calcifications of visualized coronary arteries. The visualized portions of the heart are within normal limits. Normal liver. There is non-visualization of the gallbladder, which may be secondary to either contraction or a prior cholecystectomy. Normal spleen. Normal pancreas. Normal bilateral adrenal glands. No acute findings of the right kidney. No acute findings of the left kidney. Normal visualized stomach. Normal small intestine. There are multiple colonic diverticula consistent with diverticulosis. The appendix is visualized and appears normal. There are calcifications of the abdominal aorta. This is consistent for atherosclerotic disease. There is NO abdominal aortic aneurysm. Vascular workup can be obtained based on clinical correlation. Normal inferior vena cava. Subcentimeter mesenteric lymph nodes. Normal urinary bladder. Normal abdominal wall. There are diffuse degenerative changes of the visualized lumbar spine. There is bilateral neural foraminal stenosis at L4-5 and L5-S1. CT/Abdomen/Pelvis WITH Contrast IMPRESSION: (NOT LISTED IN ORDER OF SIGNIFICANCE) There are no acute findings. Other findings as above. Electronically Signed: Oli Marcial MD at 17:54 EST ,
[2023-10-01 15:58] LABS: ALB/GLOB Ratio 0.9 RATIO (0.9-2.4); AST(SGOT) 19 U/L (15-37); Alanine Aminotransfer ALT/SGPT 21 U/L (16-61); Albumin, Serum 3.7 g/dL (3.2-5.0); Alkaline Phosphatase 102 U/L (45-117); Anion Gap 8 (5-15); BUN 20 mg/dL (7-18); BUN/Creat Ratio 19.4 RATIO (10-20); Calcium,Total 9.4 mg/dL (8.5-10.1); Chloride 99 mmol/L (98-107); Creatinine, Serum 1.03 mg/dL (0.70-1.30); EST Glomerular Filtration Rate 76 mL/min (>60); Est Glom Filt Rate - Afr Amer 92 mL/min (>60); Estimated Creatinine Clearance 68.91 ml/min; Globulin 3.9 g/dL (2.2-4.2); Glucose 141 mg/dL (74-106); Potassium 3.4 mmol/L (3.5-5.1); Protein, Total 7.6 g/dL (6.4-8.2); Sodium Level 133 mmol/L (136-145)
--- OUTSIDE RECORDS SUMMARY | 2023-10-01 15:59 | XMS RPT_ITS | CCD ---
Author Name Unknown Address [address] [place] [address] Organization [facility] Care Team Providers Care Logistics Specialist Name Role Phone HOLLY COHEN Unavailable Unavailable HOLLY COHEN Unavailable Unavailable Jose Luis Lopez Unavailable Unavailable HOLLY COHEN Unavailable Unavailable HOLLY COHEN Unavailable Unavailable Unavailable Primary Care Provider UnavailMarshall Soliz MD Primary Care Provider LEROY ALCOCER Attending Unavailable LEROY ALCOCER Admitting Unavailable Marshall Yousif MD Primary Care Provider [phone] MARSHALL YOUSIF Primary Care Unavailable Edilia Walls Attending Unavailable MARSHALL YOUSIF Primary Care Unavailable LEROY ALCOCER Attending Unavailable Edilia Walls Attending Unavailable LEROY ALCOCER Referring Unavailable Allergies Allergy Classification Reported Allergen(s) Allergy Type Date of Onset Reaction(s) Facility (17 sources) Adhesive Tape; Translations: [ADHESIVE TAPE (ROSINS)] Propensity to adverse reactions (disorder) 5 Itching [facility] (17 sources) Contrast media; Translations: [CONTRAST DYE] Propensity to adverse reactions (disorder) 9 [facility] (2 sources) cortisone; Translations: [CORTISONE] Drug Allergy 4 [facility] (17 sources) sertraline; Translations: [SERTRALINE] Drug Allergy 4 [facility] (17 sources) FD AND C BLUE NO.1; Translations: [FD AND C BLUE NO.1] Propensity to adverse reactions (disorder) 9 [facility] Medications Completed/Discontinued Medications Medication Drug [...] Active Problems Problem Classification Problem Date Documented Date Episodic/Chronic Chronic obstructive pulmonary disease and bronchiectasis (14 sources) Emphysematous bronchitis; Translations: [Chronic obstructive pulmonary disease, unspecified] 07-17-2017 Chronic Complication of device; implant or graft (1 source) Atherosclerosis of coronary artery bypass graft(s), unspecified, with other forms of angina pectoris; Translations: [Atherosclerosis of coronary artery bypass graft(s), unspecified, with other forms of angina pectoris] Onset: 09-19-2017 Chronic Coronary atherosclerosis and other heart disease (15 sources) Atherosclerotic heart disease of yuhaaviatam coronary artery without angina pectoris; Translations: [Coronary arteriosclerosis] Onset: 09-04-2012 08-09-2021 Chronic Diabetes mellitus without complication (14 sources) Type 2 diabetes mellitus without complication; Translations: [Type 2 diabetes mellitus without complications] Onset: 07-17-2018 07-17-2018 Chronic Disorders of lipid metabolism (14 sources) Hyperlipidemia; Translations: [Other hyperlipidemia] 07-17-2017 Chronic Diverticulosis and diverticulitis (2 sources) Diverticular disease; Translations: [Diverticulosis of intestine, part unspecified, without perforation or abscess without bleeding] Onset: 10-07-2022 Chronic Esophageal disorders (15 sources) Gastro-esophageal reflux disease with esophagitis; Translations: [Gastroesophageal reflux disease with esophagitis] Onset: 09-24-2016 09-24-2016 Chronic Hyperplasia of prostate (14 sources) Benign prostatic hypertrophy with outflow obstruction; Translations: [Benign prostatic hyperplasia with lower urinary tract symptoms] Onset: 08-04-2017 08-04-2017 Chronic Osteoarthritis (13 sources) Degenerative joint disease involving multiple joints; Translations: [Polyosteoarthritis, unspecified] Onset: 12-10-2003 07-17-2017 Chronic Other and unspecified benign neoplasm (4 sources) History of polyp of colon; Translations: [Personal history of colonic polyps] Episodic Other ear and sense organ disorders (14 sources) Bilateral hearing loss; Translations: [Unspecified hearing loss, bilateral] 08-09-2021 Chronic Other inflammatory condition of skin (13 sources) Rosacea; Translations: [Rosacea, unspecified] 08-09-2021 Chronic Other nutritional; endocrine; and metabolic disorders (14 sources) Obese class I; Translations: [Obesity, unspecified] Onset: 01-15-2018 01-15-2018 Chronic Other screening for suspected conditions (not mental disorders or infectious disease) (1 source) Patient encounter status; Translations: [Encounter for screening for malignant neoplasm of colon] Episodic Spondylosis; intervertebral disc disorders; other back problems (13 sources) Prolapsed cervical intervertebral disc without myelopathy; Translations: [Other cervical disc displacement, unspecified cervical region] Onset: 12-10-2003 12-10-2003 Chronic Unclassified (1 source) Unknown / UNK(Unknown) Onset: 09-19-2017 Past or Other Problems Problem Classification Problem Date Documented Da te Episodic/Chronic Abdominal pain (6 sources) Epigastric pain; Translations: [Epigastric pain] Onset: 10-20-2022 Episodic Biliary tract disease (5 sources) Cholelithiasis without obstruction; Translations: [Calculus of gallbladder without cholecystitis without obstruction] Onset: 10-20-2022 Episodic Coronary atherosclerosis and other heart disease (1 source) Coronary atherosclerosis and other heart disease Onset: 09-19-2017 Diabetes mellitus without complication (13 sources) Impaired fasting glycemia; Translations: [Impaired fasting glucose] Onset: 07-15-2016 07-15-2016 Episodic Gastritis and duodenitis (2 sources) Gastroduodenitis; Translations: [Gastroduodenitis, unspecified, without bleeding] Onset: 10-07-2022 Episodic Other and unspecified benign neoplasm (13 sources) Tubular adenoma of colon; Translations: [Benign neoplasm of colon, unspecified] Onset: 10-30-2014 10-30-2014 Episodic Other and unspecified benign neoplasm (1 source) Personal history of colonic polyps; Translations: [History of colonic polyps] Onset: 10-07-2022 Episodic Other connective tissue disease (13 sources) Fibromyalgia; Translations: [Fibromyalgia] Onset: 12-10-2003 04-12-2016 Episodic Other gastrointestinal disorders (14 sources) Constipation; Translations: [Constipation, unspecified] Onset: 06-28-2010 07-17-2017 Episodic Other lower respiratory disease (1 source) Other forms of dyspnea; Translations: [Other forms of dyspnea] Onset: 09-19-2017 Episodic Spondylosis; intervertebral disc disorders; other back problems (15 sources) Lumbosacral neuritis; Translations: [Radiculopathy, lumbosacral region] Onset: 07-28-2009 08-09-2021 Episodic Results Test Name Value Interpretation Reference Range Facil ity Vital Signs Date Time Vital Sign Value Performing Clinician Faci lity 11-18-2022 09:25-0400 Body height 177.8 cm Edilia Titi PA-C Work Phone: [facility] 11-18-2022 09:25-0400 Body temperature 98.01 [degF] Edilia Glasco PA-C Work Phone: [facility] 11-18-2022 09:25-0400 Body weight 96.62 kg Edilia Titi PA-C Work Phone: [facility] 11-18-2022 09:25-0400 Diastolic blood pressure 78 mm[Hg] Edilia Glasco PA-C Work Phone: [facility] 11-18-2022 09:25-0400 Heart rate 89 /min Edilia Titi PA-C Work Phone: [facility] 11-18-2022 09:25-0400 SaO2% (BldA) [Mass fraction] 95 % Edilia Titi PA-C Work Phone: [facility] 11-18-2022 09:25-0400 Systolic blood pressure 140 mm[Hg] Edilia Glasco PA-C Work Phone: [facility] 11-04-2022 11:02-0400 Body height 177.8 cm Pacc 1 Work Phone: [facility] 11-04-2022 11:02-0400 Body temperature 98.2 [degF] Pacc 1 Work Phone: [facility] 11-04-2022 11:02-0400 Body weight 99.34 kg Pacc 1 Work Phone: [facility] 11-04-2022 11:02-0400 Diastolic blood pressure 82 mm[Hg] Pacc 1 Work Phone: [facility] 11-04-2022 11:02-0400 Heart rate 69 /min Pacc 1 Work Phone: [facility] 11-04-2022 11:02-0400 Respiratory rate 14 /min Pacc 1 Work Phone: [facility] 11-04-2022 11:02-0400 SaO2% (BldA) [Mass fraction] 97 % Pacc 1 Work Phone: [facility] 11-04-2022 11:02-0400 Systolic blood pressure 132 mm[Hg] Pacc 1 Work Phone: [facility] 10-20-2022 08:49-0500 Body height 177.8 cm Leroy Alcocer MD Work Phone: [facility] 10-20-2022 08:49-0500 Body temperature 97.9 [degF] Leroy Alcocer MD Work Phone: [facility] 10-20-2022 08:49-0500 Body weight 100.25 kg Leroy Alcocer MD Work Phone: [facility] 10-20-2022 08:49-0500 Diastolic blood pressure 78 mm[Hg] Leroy Alcocer MD Work Phone: [facility] 10-20-2022 08:49-0500 Heart rate 80 /min Leroy Alcocer MD Work Phone: [facility] 10-20-2022 08:49-0500 Respiratory rate 12 /min Leroy Alcocer MD Work Phone: [facility] 10-20-2022 08:49-0500 SaO2% (BldA) [Mass fraction] 96 % Leroy Alcocer MD Work Phone: [facility] 10-20-2022 08:49-0500 Systolic blood pressure 122 mm[Hg] Leroy Alcocer MD Work Phone: [facility] 10-07-2022 15:25-0500 Body temperature 97.9 [degF] Edilia Glasco PA-C Work Phone: [facility] 10-07-2022 15:25-0500 Diastolic blood pressure 88 mm[Hg] Edilia Titi PA-C Work Phone: [facility] 10-07-2022 15:25-0500 Heart rate 82 /min Edilia Titi PA-C Work Phone: [facility] 10-07-2022 15:25-0500 SaO2% (BldA) [Mass fraction] 95 % Edilia Titi PA-C Work Phone: [facility] 10-07-2022 15:25-0500 Systolic blood pressure 112 mm[Hg] Edilia Titi PA-C Work Phone: [facility] 09-27-2022 11:00-0500 Diastolic blood pressure 67 mm[Hg] Leroy Alcocer MD Work Phone: [facility] 09-27-2022 11:00-0500 Heart rate 67 /min Leroy Alcocer MD Work Phone: [facility] 09-27-2022 11:00-0500 Respiratory rate 16 /min Leroy Alcocer MD Work Phone: [facility] 09-27-2022 11:00-0500 SaO2% (BldA) [Mass fraction] 93 % Leroy Alcocer MD Work Phone: [facility] 09-27-2022 11:00-0500 Systolic blood pressure 149 mm[Hg] Leroy Alcocer MD Work Phone: [facility] 09-27-2022 07:58-0500 Body temperature 97.39 [degF] Leroy Alcocer MD Work Phone: [facility] 09-27-2022 07:58-0500 Body weight 100.1 kg Leroy Alcocer MD Work Phone: [facility] 08-09-2022 13:11-0500 Body height 177.8 cm Edilia Glasco PA-C Work Phone: [facility] 08-09-2022 13:050 Body temperature 97.2 [degF] Edilia Glasco PA-C Work Phone: [facility] 08-09-2022 13:050 Body weight 100.06 kg Edilia Glasco PA-C Work Phone: [facility] 08-09-2022 [id number] Diastolic blood pressure 76 mm[Hg] Edilia Titi PA-C Work Phone: [facility] 08-09-2022 13:050 Heart rate 82 /min Edilia Glasco PA-C Work Phone: [facility] 08-09-2022 13:0500 SaO2% (BldA) [Mass fraction] 97 % Edilia Glasco PA-C Work Phone: [facility] 08-09-2022 [id number] Systolic blood pressure 108 mm[Hg] Edilia Glasco PA-C Work Phone: [facility] Encounters Encounter Date Encounter Type Care Provider Facility Start: 09-28-2023 Orders Only Leroy richardson MD Work Phone: General Surgery Procedures Date Procedure Procedure Detail Performing Clinician Start: 09-27-2022 Level iv surg pathology gross&microscopic exam Leroy Alcocer MD Work Phone: Start: 09-27-2022 Colonoscopy flx dx w/collj spec when pfrmd Edilia Titi PA-C Work Phone: Start: 09-27-2022 Esophagogastroduodenoscopy transoral diagnostic Leroy Alcocer MD Work Phone: Start: 09-27-2022 Gluc bld gluc mntr dev cleared fda spec home use Leroy Alcocer MD Work Phone: Start: 09-27-2022 Colonoscopy Edilia Glasco PA-C Work Phone: Start: 06-21-2017 Colonoscopy Edilia Glasco PA-C Work Phone: Plan of Treatment Date Care Activity Detail Author Start: 09-27-2027 Colonoscopy COLONOSCOPY [facility] Start: 09-27-2027 COLORECTAL CANCER SCREENING COLORECTAL CANCER SCREENING [facility] Start: 09-27-2027 Screening for malignant neoplasm of colon [facility] Start: 08-14-2023 Advance Directive Discussion Advance Directive Discussion [facility] Start: 08-14-2023 Depression Assessment Depression Assessment [facility] Start: 04-14-2023 Covid-19 Vaccine () Covid-19 Vaccine () [facility] Start: 04-14-2023 Influenza vaccination [facility] Start: 08-14-2022 ADVANCE DIRECTIVE DISCUSSION ADVANCE DIRECTIVE DISCUSSION [facility] Start: 08-14-2022 DEPRESSION ASSESSMENT DEPRESSION ASSESSMENT [facility] Start: 06-21-2022 Colonoscopy COLONOSCOPY [facility] Start: 06-21-2022 COLORECTAL CANCER SCREENING COLORECTAL CANCER SCREENING [facility] Start: 04-14-2022 Influenza vaccination INFLUENZA (#1) [facility] Start: 07-10-2021 COVID-19 VACCINE (4 - Booster for Pfizer series) COVID-19 VACCINE (4 - Booster for Pfizer series) [facility] Start: 07-10-2021 COVID-19 VACCINE (4 - Pfizer series) COVID-19 VACCINE (4 - Pfizer series) [facility] Start: 04-17-2020 Hepatitis B screening URINE ALBUMIN:CREATININE RATIO [facility] Start: 04-09-2020 Hepatitis B surface antibody level LDL CHOLESTEROL [facility] Start: 03-20-2020 PNEUMOCOCCAL: 65+ (3 - PPSV23 if available, else PCV20) PNEUMOCOCCAL: 65+ (3 - PPSV23 if available, else PCV20) [facility] Start: 03-20-2020 PNEUMOCOCCAL: 65+ (3 - PPSV23 or PCV20) PNEUMOCOCCAL: 65+ (3 - PPSV23 or PCV20) [facility] Start: 01-28-2020 Shingrix Vaccine (2 of 2) Shingrix Vaccine (2 of 2) [facility] Start: 11-29-2019 Glaucoma screening Dilated Retinal Exam [facility] Start: 11-29-2019 Hepatitis C antibody, confirmatory test DILATED RETINAL EXAM [facility] Start: 11-22-2019 ANNUAL PCP TEAM CHRONIC DISEASE VISIT ANNUAL PCP TEAM CHRONIC DISEASE VISIT [facility] Start: 10-10-2019 Hemoglobin A1c measurement HbA1C [facility] Start: 10-10-2019 Hemoglobin A1c/Hemoglobin.total in Blood HBA1C [facility] Start: 07-17-2019 3 comp foot exam completed DIABETIC FOOT EXAM [facility] Start: 07-17-2019 Diabetic foot examination Diabetic Foot Exam [facility] Start: 2013 Hepatitis B Vaccine (1 of 3 - Risk 3-dose series) Hepatitis B Vaccine (1 of 3 - Risk 3-dose series) [facility] Start: 2013 RSV Vaccine (1 - 1-dose 60+ series) RSV Vaccine (1 - 1-dose 60+ series) [facility] Start: 03-08-2013 Urine microalbumin profile [facility] Start: 2003 SHINGRIX VACCINE (1 of 2) SHINGRIX VACCINE (1 of 2) [facility] Start: 1998 COLOGUARD (FIT-DNA) COLOGUARD (FIT-DNA) [facility] Start: [address] COLONOGRAPHY [facility] Start: 1998 FECAL OCCULT BLOOD FECAL OCCULT BLOOD [facility] Start: 1998 Screening for malignant neoplasm of colon [facility] Start: 1998 SIGMOIDOSCOPY SIGMOIDOSCOPY [facility] Start: 1983 Zoledronic acid therapy ALPHA-1 ANTITRYPSIN DEFICIENCY SCREENING [facility] Start: 1971 SPIROMETRY SPIROMETRY [facility] End: 09-16-2023 EGD DIAGNOSTIC EGD DIAGNOSTIC Endoscopy Routine Epigastric pain 1 Occurrences starting 09/16/2022 until 09/16/2023 [facility] Work Phone: Immunizations Immunization Date Immunization Notes Care Provider Fa chata 03-14-2022 influenza virus vacc ine, unspecified formulation Leroy Alcocer MD Work Phone: [facility] 07-17-2018 influenza, high dose seasonal, preservative-free Edilia Walls PA-C Work Phone: [facility] Work Phone: 07-17-2018 pneumococcal conjuga te vaccine, 13 valent Edilia Walls PA-C Work Phone: [facility] Work Phone: 07-17-2017 influenza, injectabl e, quadrivalent, contains preservative Edilia Titi PA-C Work Phone: [facility] 07-15-2016 influenza, injectabl e, quadrivalent, contains preservative Edilia Glasco PA-C Work Phone: [facility] 07-29-2015 influenza, injectabl e, quadrivalent, contains preservative Edilia Glasco PA-C Work Phone: [facility] Work Phone: 03-20-2015 pneumococcal polysaccharide vaccine, 23 valent Edilia Glasco PA-C Work Phone: [facility] 06-10-2014 influenza, seasonal, injectable Edilia Titi PA-C Work Phone: [facility] 03-07-2013 tetanus and diphther ia toxoids, not adsorbed, for adult use Edilia Titi PA-C Work Phone: [facility] 06-14-2012 influenza virus vacc ine, unspecified formulation Edilia Glasco PA-C Work Phone: [facility] 06-25-2010 influenza virus vacc ine, unspecified formulation Edilia Glasco PA-C Work Phone: [facility] 06-05-2009 influenza virus vacc ine, unspecified formulation Edilia Titi PA-C Work Phone: [facility] Work Phone: 07-18-2007 influenza virus vacc ine, unspecified formulation Edilia Glasco PA-C Work Phone: [facility] Work Phone: 06-13-2006 influenza virus vacc ine, unspecified formulation Edilia Glasco PA-C Work Phone: [facility] Work Phone: Payers Date Payer Category Payer Medicare [id number] 2007 Medicare [employer] [place] [id number] 2007-Present [phone] [address] [place] [id number] HMO [id number] Social History Date Type Detail Facility Start: 10-13-2011 End: 10-20-2022 Tobacco smoking status NHIS Ex-smoker [facility] History of tobacco use Current smoker [facility] History of tobacco use Cigarette Smoker C [facility] Start: 10-13-2011 End: 10-20-2022 Tobacco use and exposure User of smokeless tobacco [facility] History of tobacco use Chews Tobacco [facility] Start: 08-09-2022 End: 09-28-2022 Alcohol intake Current drinker of alcohol (finding) [facility] Start: 08-09-2022 End: 08-28-2022 Alcohol intake [facility] Start: 06-20-2017 Alcohol Comment [facility] Start: 1955 Sex Assigned At Not on file [facility] Start: 09-27-2022 Tobacco Comment snuff 1 can a week [facility] Start: 10-20-2022 End: 11-18-2022 Alcohol intake Ex-drinker (finding) [facility] Start: 10-20-2022 Tobacco Comment One can a week .States only smoked occasionally years ago. [facility] Start: 08-28-2022 End: 11-18-2022 Tobacco use panel [facility] Adult Depression Screening Assessment 0 [facility] Medical Equipment Procedure Code Equipment Code Equipment Origin al Text Equipment Identifier Dates Test blood sugar (s) one times daily. Dx: Type 2 DM - Controlled E11.9 Insulin: No Start: 07-17-2018 Clinical Notes 06-16-2017 to 09-28-2023 Leroy Alcocer MD - 09/28/2023 8:24 AM ESTPatient InstructionsEdilia Walls PA-C - 11/18/2022 9:44 AM Socorro Lira RN - 11/18/2022 9:20 AM EDTPatient InstructionsPatient Instructions Note Date & Type Note Facility 09-28-2023 Note HNO ID: [id number] Author: LEROY ALCOCER MD Service: ? Author Type: Physician Type: Progress Notes Filed: 09/28/2023 08:29 Note Text: Called by patient's PCP Dr. Zonia Batista for increasing epigastric symptoms. Patient had prior upper endoscopy before his cholecystectomy which did demonstrate gastritis. Will plan for urgent upper endoscopy. [facility] 09-28-2023 History of Present illness Narrative Called by patient's PCP Dr. Zonia Batista for increasing epigastric symptoms. Patient had prior upper endoscopy before his cholecystectomy which did demonstrate gastritis. Will plan for urgent upper endoscopy. documented in this encounter [facility] 11-18-2022 Note HNO ID: [id number] Author: Edilia Walls PA-C Service: ? Author Type: Physician Licensed Loan Officer Type: Progress Notes Filed: 11/22/2022 4:57 PM Note Text: FOLLOW UP VISIT - CHOLECYSTECTOMY NAME: Abdirizak Ch [facility] NO.: [id number] DATE OF SERVICE: 11/18/2022 : 1955 REFERRING [...] instructed to follow-up with me as needed. Edilia Walls PA-C [facility] 11-18-2022 Instructions Edilia Walls PA-C - 11/18/2022 10:01 AM EDT The following instructions are important for you related to your office visit today with the [facility] General Surgeons. INSTRUCTIONS FOLLOWING YOU RECENT [...] you should contact our office immediately @ [phone] and ask to be transferred to the General Surgery department. documented in this encounter [facility] 11-18-2022 History of Present illness Narrative FOLLOW UP VISIT - CHOLECYSTECTOMY NAME: Abdirizak Bates [facility] NO.: [id number] DATE OF SERVICE: 11/18/2022 : 1955 REFERRING [...] instructed to follow-up with me as needed. Edilia Walls PA-C documented in this encounter [facility] 11-18-2022 Nurse Note REVIEW OF SYSTEMS: General: [...] Clara Lira RN documented in this encounter [facility] 11-14-2022 Miscellaneous Notes Patient was evaluated at [facility] ER, CT scan of the abdomen and pelvis was completed. Diagnosed with back spasm. Carol Vega RN Called patient back to [facility]. Alethea stated that she called 911 and ambulance was there. Yes, agree with urgent ED evaluation for severe abdominal pain Patient called back, patient is yelling in pain, advised patient to go to ER. Alethea asked if [facility] would treat patient, informed them yes they will however Dr Alcocer is not at that hospital and is doing surgeries in [place] today. voiced understanding. Alethea # [phone] Abdirizak's , Alethea, called. Abdirizak had laparoscopic cholecystectomy surgery on Monday, November 11. Today he is complaining of [...] of the pain. They use [facility] in [place]. Alethea also wanted us to know that they tried reaching out, over the weekend to the provider number that is on their discharge paperwork, but that number is to [facility] and the door operator refused to page Dr. Alcocer, stating that he does not work at their facility. I apologized to Alethea, stating that I would reach out and see who can update that paperwork and correct that error. Caorl Vega RN documented in this encounter [facility] 11-11-2022 Note HNO ID: [id number] Author: Joni Crooks RN Service: Nursing Author Type: Registered Nurse Type: Nursing Progress Note Filed: 11/11/2022 12:59 PM Note Text: PT up to bathroom, ambulated with close supervision, tolerated well. 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. Copy made for Angela Norris CNP and original sent to [facility]. Araceli Davis LPN Called and spoke with Katerina at [facility], she will fax last office visit and cardiac records. Araceli Davis LPN Received labs from Dr. Yousif's office. Copy made for Angela Norris CNP and original sent to [facility] through [facility]. Araceli Davis LPN Received a call from [facility] stating Dr. Mckeon office has moved and new phone number is [phone]. I called Dr. Mckeon new office and spoke with Katrina. Requested labs especially A1c to be faxed, fax number given. Araceli Davis LPN Called and left message at Dr. Mathews office requesting patients most recent labs especially A1c to be faxed. Callback number and fax number given. Araceli Davis LPN Called and left message with Katerina at [facility] to return call. Callback number given. Araceli Davis LPN Please request most recent labs, especially A1c from PCP's office. And cardiac records, last OV from [facility]. DOS 11/11/2022 documented in this encounter [facility] 11-04-2022 History and physical note HISTORY AND PHYSICAL EXAMINATION SERVICE DATE: 11/04/2022 SERVICE TIME: 6:17 AM PRIMARY CARE PHYSICIAN: Marshlal Yousif MD REASON FOR VISIT: Abdirizak Bates [...] Without Long-Term Current Use of Insulin (Hcc) COVID-19 Immunization Status Overdue - COVID-19 VACCINE [...] abdominal pain.the patient was initially seen by Edilia Walls in July 2022 for evaluation for [...] Dr. Pedro that after being evaluated by Edilia Walls the patient had an ER visit [...] fevers. Neurological: No history of TIA's, stroke, SECURITY CHECKER tumor, impaired sensorium, hemiplegia, paraplegia or quadraplegia. No neurological symptoms or problems. Respiratory: Positive for: asthma and COPD. Negative for: pneumonia within 6 weeks, tobacco use, URI < 2 weeks and obstructive sleep apnea. Cardiovascular: Positive for: anticoagulation therapy (ASA), CAD, hyperlipidemia (on rx) and open heart surgery Negative for: arrhythmia, atrial fibrillation, chest pain, CHF, congenital heart defect, DVT/PE, hypertension, recent FL, murmur/valvular heart disease, PVD and valve surgery. [...] for: joint pain. Skin: +rosacea, following [facility] PAST MEDICAL HISTORY Diagnosis Date Asthma CAD [...] 06/16/2017 Added automatically from request for surgery [id number] Impaired fasting glucose 07/15/2016 Myalgia and myositis, [...] HX HEMORRHOIDECTOMY NTRNL & XTRNL 1 COLUMN/GROUP 2001 HERNIA REPAIR HX MEDELLIN FACETECTOMY & FORAMOTOMY [...] A1C Date Value 04/09/2019 Test sent to [facility]. % 11/05/2018 Test sent to [facility]. % 06/28/2018 Test sent to [facility]. % 07/17/2017 Test sent to [facility]. % 06/23/2016 Test sent to [facility]. % 06/23/2016 6.1 No results found for this or any previous visit (from the past 8760 hour(s)). No results found for this or any previous visit (from the past 83960 hour(s)). Assessment Patient has the following medical conditions which may affect neerida-operative course: Other hyperlipidemia Assessment: c/w statin CAD (coronary artery disease) Assessment: CABG x3, 2011, following [facility], daily ASA, denies CP, palpitations or [...] equal to 35 kg/m^2 STOP-Bang Score: 4 [id number] Score: Age: 65-74 Sex: male CHF history: No Hypertension history: Yes Stroke/TIA/thromboembolism history: No Vascular disease history: Yes Diabetes history: Yes [id number] Score: 4 ARISCAT Score: Age: 51-80 Preoperative [...] AM PAGER/CONTACT #: documented in this encounter [facility] 11-04-2022 Instructions Angela Norris APRN.CNP - 11/04/2022 11:12 AM EDT PATIENT PREOPERATIVE INSTRUCTIONS No ref. provider found has scheduled you for your procedure at this surgery center: [facility]: [phone] -- [address] [address]. Please read below carefully for your personalized [...] Procedures: - YOU MUST HAVE A RESPONSIBLE SUPERVISOR SHUTTLE FITTING TAKE YOU HOME. A REMOTE SENSING ENGINEER OR BUS GREASER CANNOT BE MADE A RESPONSIBLE SUPERVISOR SHUTTLE FITTING. - We recommend that a responsible person [...] Advance Directive, please fax a copy to [phone] or email to for it to be [...] Angela Norris APRN.CNP documented in this encounter [facility] 10-21-2022 Note HNO ID: [id number] Author: Leroy Alcocer MD Service: ? Author Type: Physician Type: Progress Notes Filed: 10/28/2022 6:18 AM Note Text: HISTORY AND PHYSICAL Abdirizak Bates 1955 REFERRING PHYSICIAN: Dr. Yousif CHIEF COMPLAINT: Abdominal Pain HPI: Abdirizak is a 67 year old male with a complaint of abdominal pain.the patient was initially seen by Edilia Walls in July 2022 for evaluation for [...] Dr. Pedro that after being evaluated by Edilia Walls the patient had an ER visit [...] 06/16/2017 Added automatically from request for surgery [id number] Impaired fasting glucose 07/15/2016 Myalgia and myositis, [...] 1ST INGUN HRNA AGE 5 YRS/> REDUCIBLE 2004 - left RPR 1ST INGUN HRNA AGE 5 YRS/> REDUCIBLE 2001 2 right RPR UMBILICAL HRNA 5 YRS/> REDUCIBLE 2 (more content not included)... [facility] 10-21-2022 History of Present illness Narrative HISTORY AND PHYSICAL Abdirizak Bates 1955 REFERRING PHYSICIAN: Dr. Yousif CHIEF COMPLAINT: Abdominal Pain HPI: Abdirizak is a 67 year old male with a complaint of abdominal pain.the patient was initially seen by Edilia Walls in July 2022 for evaluation for [...] Dr. Pedro that after being evaluated by Edilia Walls the patient had an ER visit [...] 06/16/2017 Added automatically from request for surgery [id number] Impaired fasting glucose 07/15/2016 Myalgia and myositis, [...] NEUROPLASTY &/TRANSPOS MEDIAN NRV CARPAL TUNNE Right 2001 Carpal tunnel decomp right NEUROPLASTY &/TRANSPOS MEDIAN [...] Procedure: LAPAROSCOPIC CHOLECYSTECTOMY WITH INTRAOPERATIVE CHOLEANGIOGRAM - [id number] Planned antibiotic: Ancef 2gm IVPB sales agent pest control service to OR SCDs needed - Yes Licensed Loan Officer Needed - No Diagnoses: (K80.20) Calculus of gallbladder without cholecystitis without obstruction (primary encounter diagnosis) (R10.11) RUQ pain My findings have been communicated to via shared medical record. This note will be forwarded to No primary care provider on file.. Leroy Alcocer MD documented in this encounter [facility] 10-20-2022 Miscellaneous Notes Called and spoke to Linette [facility], CT scan dept. Pushed image per Dr Alcocer request. Lilliam Cota LPN documented in this encounter [facility] 10-07-2022 Note HNO ID: [id number] Author: Edilia Walls PA-C Service: ? Author Type: Physician Licensed Loan Officer Type: Progress Notes Filed: 10/13/2022 2:07 PM Note Text: FOLLOW UP VISIT - ENDOSCOPY NAME: Abdirizak Bates [facility] NO.: [id number] DATE OF SERVICE: 10/07/2022 : 1955 REFERRING [...] which included preparing to see the patient, [id number]-[id number] patient care, completing clinical documentation, obtaining and/or reviewing separately obtained history, counseling and educating the patient/family/caregiver, independently interpreting results (not separately reported), and communicating results to the patient/family/caregiver. Edilia Walls PA-C [facility] 10-07-2022 Instructions Edilia Walls PA-C - 10/07/2022 4:02 PM EST [...] to your office visit today with the [facility] General Surgeons. INSTRUCTIONS FOLLOWING A NORMAL [...] you should contact our office immediately @ [phone] and ask to be transferred to the General Surgery department. documented in this encounter [facility] 10-07-2022 History of Present illness Narrative FOLLOW UP VISIT - ENDOSCOPY NAME: Abdirizak Bates [facility] NO.: [id number] DATE OF SERVICE: 10/07/2022 : 1955 REFERRING [...] which included preparing to see the patient, [id number]-[id number]-gent patient care, completing clinical documentation, obtaining and/or reviewing separately obtained history, counseling and educating the patient/family/caregiver, independently interpreting results (not separately reported), and communicating results to the patient/family/caregiver. Edilia Walls PA-C documented in this encounter [facility] 09-27-2022 Nurse Note Oxygen applied at 2L [...] on left side. documented in this encounter [facility] 09-27-2022 History and physical note UPDATED PROCEDURAL [...] AND PHYSICAL Abdirizak Bates 1955 REFERRING PHYSICIAN: Edilia Walls PA-C CHIEF COMPLAINT: Consult (Colonoscopy/) HPI: [...] 06/16/2017 Added automatically from request for surgery [id number] Impaired fasting glucose 07/15/2016 Myalgia and myositis, [...] 1 distal transverse COLONOSCOP W/ OR W/O RUST SPEC 07/06/10 Normal COLONOSCOP W/ OR W/O RUST SPEC 06/20/2017 Colonoscopy EGD W/O RUST SPECIMEN W/BX 07/06/10 gastritis EGD W/O BRS SPECIMEN W/BX 10/07/14 duodenitis, gastritis, esophagitis EGD W/O BRS SPECIMEN W/BX 09/13/2016 continued inflammation HEMORRHOIDECT INTER/EXTER SIMP 2001 LAMINEC/FACETECT/FORAMIN,LUMBAR 2013 REMV LENS MATERIAL,PHACOFRAGMT 1999, 2001 [...] entered by the nurse and reviewed by me Nursing Notes: Mel Alonso LPN 08/09/2022 1:45 [...] the PFSH and ROS obtained by others. Edilia Walls PA-C PHYSICAL EXAMINATION: General: The patient [...] patient was offered a surgery/procedure at a [facility] facility. I have counseled the patient regarding [...] which included preparing to see the patient, [id number] patient care, completing clinical documentation, obtaining and/or reviewing separately obtained history, performing a medically appropriate examination, and care coordination (not separately reported). Edilia Walls PA-C Images from the original note were not included. HISTORY AND PHYSICAL Abdirizak Bates 1955 REFERRING PHYSICIAN: Edilia Walls PA-C CHIEF COMPLAINT: Consult (Colonoscopy/) HPI: [...] 06/16/2017 Added automatically from request for surgery [id number] Impaired fasting glucose 07/15/2016 Myalgia and myositis, [...] continued inflammation HEMORRHOIDECT INTER/EXTER SIMP 2001 LAMINEC/FACETECT/FORAMIN,LUMBAR 2013 REMV LENS MATERIAL,PHACOFRAGMT 1999, 2001 [...] entered by the nurse and reviewed by pa Nursing Notes: Mel Alonso LPN 08/09/2022 1:45 [...] the PFSH and ROS obtained by others. Edilia Walls PA-C PHYSICAL EXAMINATION: General: The patient [...] patient was offered a surgery/procedure at a [facility] facility. I have counseled the patient regarding [...] which included preparing to see the patient, [id number]-[id number]-fvwe patient care, completing clinical documentation, obtaining and/or reviewing separately obtained history, performing a medically appropriate examination, and care coordination (not separately reported). Edilia Walls PA-C documented in this encounter [facility] 09-16-2022 Miscellaneous Notes EGD added to procedure Fela Ambriz Needle Loom Operator Pt calling to inform that Dr. Yousif had ordered EGD for pt. There is an order in [facility] from [facility]. Pt asking if that can be done the same day as the colonoscopy. Please contact patient to confirm date. Aspen Sainz documented in this encounter [facility] 09-16-2022 Miscellaneous Notes Called by patient's PCP Dr. Batista who also is having upper symptoms will add EGD and perform orosco biopsies. 09/27/2022 COLON ASC documented in this encounter [facility] 08-09-2022 Nurse Note REVIEW OF SYSTEMS: General: [...] Mel Alonso LPN documented in this encounter [facility] 08-09-2022 History of Present illness Narrative HISTORY AND PHYSICAL Abdirizak Ch Paulo 1955 REFERRING PHYSICIAN: Edilia Walls PA-C CHIEF COMPLAINT: Consult (Colonoscopy/) HPI: [...] 06/16/2017 Added automatically from request for surgery [id number] Impaired fasting glucose 07/15/2016 Myalgia and myositis, [...] 1 distal transverse COLONOSCOP W/ OR W/O RUST SPEC 07/06/10 Normal COLONOSCOP W/ OR W/O RUST SPEC 06/20/2017 Colonoscopy EGD W/O RUST SPECIMEN W/BX 07/06/10 gastritis EGD W/O RUST SPECIMEN W/BX 10/07/14 duodenitis, gastritis, esophagitis EGD W/O RUST SPECIMEN W/BX 09/13/2016 continued inflammation HEMORRHOIDECT INTER/EXTER [...] entered by the nurse and reviewed by pa Nursing Notes: Mel AlonsoTORI 08/09/2022 1:45 PM Signed REVIEW OF SYSTEMS: [...] the PFSH and ROS obtained by others. Edilia Walls PA-C PHYSICAL EXAMINATION: General: The patient [...] patient was offered a surgery/procedure at a [facility] facility. I have counseled the patient regarding [...] which included preparing to see the patient, [id number]-ss-mrfy patient care, completing clinical documentation, obtaining and/or reviewing separately obtained history, performing a medically appropriate examination, and care coordination (not separately reported). Edilia Walls PA-C documented in this encounter [facility] documented as of this encounter (statuses as of 08/18/2022) [facility]11-[facility]-2017 History of Past illness Narrative* Problem Noted Date Resolved Date Hemorrhoids, internal 06/16/2017 01/15/2018 Overview: Added automatically from request for surgery [id number] Bright red rectal bleeding 06/16/201707/17 Overview: Added automatically from request for surgery [id number] History of colonic polyps 06/16/20172016 Overview: Added automatically from request for surgery [id number] Calculus of gallbladder with out cholecystitis without [...] Laboratory test 07/16/2012 11/04/2014 Overview: PSA done [facility] 07/06/2012 - 0.89 Pain in joint, shoulder region 04/06/2012 0 04/12/2016 GERD (gastroesophageal reflux disease) 0 07/17/2017 Diabetes mellitus 06/25/2010 09/04/2012 Headache(784.0) 10/30/2007 01/15/2018 Dysthymic disorder 07/17/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) Other malaise and fatigue 2015 Other specified disease of hair and hair follicl es 11/04/2014 documented as of this encounter (statuses as of 09/16/2022) [facility] History of Past illness Narrative* Problem Noted Date Resolved Date Hemorrhoids, internal 06/16/2017 01/15/2018 Overview: Added automatically from request for surgery [id number] Bright red rectal bleeding 06/16/201707/17 Overview: Added automatically from request for surgery [id number] History of colonic polyps 06/16/20172016 Overview: Added automatically from request for surgery [id number] Calculus of gallbladder with out cholecystitis without [...] Laboratory test 07/16/2012 11/04/2014 Overview: PSA done [facility] 07/06/2012 - 0.89 Pain in joint, shoulder region 04/06/2012 0 04/12/2016 GERD (gastroesophageal reflux disease) 0 07/17/2017 Diabetes mellitus 06/25/2010 09/04/2012 Headache(784.0) 10/30/2007 01/15/2018 Dysthymic disorder 07/17/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) Other malaise and fatigue 2015 Other specified disease of hair and hair follicl es 11/04/2014 documented as of this encounter (statuses as of 09/16/2022) [facility] History of Past illness Narrative* Problem Noted Date Resolved Date Hemorrhoids, internal 06/16/2017 01/15/2018 Overview: Added automatically from request for surgery [id number] Bright red rectal bleeding 06/16/201707/17 Overview: Added automatically from request for surgery [id number] History of colonic polyps 06/16/20172016 Overview: Added automatically from request for surgery [id number] Calculus of gallbladder with out cholecystitis without [...] Laboratory test 07/16/2012 11/04/2014 Overview: PSA done [facility] 07/06/2012 - 0.89 Pain in joint, shoulder region 04/06/2012 0 04/12/2016 GERD (gastroesophageal reflux disease) 0 07/17/2017 Diabetes mellitus 06/25/2010 09/04/2012 Headache(784.0) 10/30/2007 01/15/2018 Dysthymic disorder 07/17/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) Other malaise and fatigue 2015 Other specified disease of hair and hair follicl es 11/04/2014 documented as of this encounter (statuses as of 10/13/2022) [facility] History of Past illness Narrative* Problem Noted Date Resolved Date Hemorrhoids, internal 06/16/2017 01/15/2018 Overview: Added automatically from request for surgery [id number] Bright red rectal bleeding 06/16/201707/17 Overview: Added automatically from request for surgery [id number] History of colonic polyps 06/16/20172016 Overview: Added automatically from request for surgery [id number] Calculus of gallbladder with out cholecystitis without [...] Laboratory test 07/16/2012 11/04/2014 Overview: PSA done [facility] 07/06/2012 - 0.89 Pain in joint, shoulder region 04/06/2012 0 04/12/2016 GERD (gastroesophageal reflux disease) 0 07/17/2017 Diabetes mellitus 06/25/2010 09/04/2012 Headache(784.0) 10/30/2007 01/15/2018 Dysthymic disorder 07/17/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) Other malaise and fatigue 2015 Other specified disease of hair and hair follicl es 11/04/2014 documented as of this encounter (statuses as of 10/20/2022) [facility] History of Past illness Narrative* Problem Noted Date Resolved Date Hemorrhoids, internal 06/16/2017 01/15/2018 Overview: Added automatically from request for surgery [id number] Bright red rectal bleeding 06/16/201707/17 Overview: Added automatically from request for surgery [id number] History of colonic polyps 06/16/20172016 Overview: Added automatically from request for surgery [id number] Calculus of gallbladder with out cholecystitis without [...] Laboratory test 07/16/2012 11/04/2014 Overview: PSA done [facility] 07/06/2012 - 0.89 Pain in joint, shoulder region 04/06/2012 0 04/12/2016 GERD (gastroesophageal reflux disease) 0 07/17/2017 Diabetes mellitus 06/25/2010 09/04/2012 Headache(784.0) 10/30/2007 01/15/2018 Dysthymic disorder 07/17/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) Other malaise and fatigue 2015 Other specified disease of hair and hair follicl es 11/04/2014 documented as of this encounter (statuses as of 10/26/2022) [facility] History of Past illness Narrative* Problem Noted Date Resolved Date Hemorrhoids, internal 06/16/2017 01/15/2018 Overview: Added automatically from request for surgery [id number] Bright red rectal bleeding 06/16/201707/17 Overview: Added automatically from request for surgery [id number] History of colonic polyps 06/16/20172016 Overview: Added automatically from request for surgery [id number] Calculus of gallbladder with out cholecystitis without [...] Laboratory test 07/16/2012 11/04/2014 Overview: PSA done [facility] 07/06/2012 - 0.89 Pain in joint, shoulder region 04/06/2012 0 04/12/2016 GERD (gastroesophageal reflux disease) 0 07/17/2017 Diabetes mellitus 06/25/2010 09/04/2012 Headache(784.0) 10/30/2007 01/15/2018 Dysthymic disorder 07/17/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) Other malaise and fatigue 2015 Other specified disease of hair and hair follicl es 11/04/2014 documented as of this encounter (statuses as of 11/09/2022) [facility] History of Past illness Narrative* Problem Noted Date Resolved Date Hemorrhoids, internal 06/16/2017 01/15/2018 Overview: Added automatically from request for surgery [id number] Bright red rectal bleeding 06/16/201707/17 Overview: Added automatically from request for surgery [id number] History of colonic polyps 06/16/20172016 Overview: Added automatically from request for surgery [id number] Calculus of gallbladder with out cholecystitis without [...] Laboratory test 07/16/2012 11/04/2014 Overview: PSA done [facility] 07/06/2012 - 0.89 Pain in joint, shoulder region 04/06/2012 0 04/12/2016 GERD (gastroesophageal reflux disease) 0 07/17/2017 Diabetes mellitus 06/25/2010 09/04/2012 Headache(784.0) 10/30/2007 01/15/2018 Dysthymic disorder 07/17/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) Other malaise and fatigue 2015 Other specified disease of hair and hair follicl es 11/04/2014 documented as of this encounter (statuses as of 11/09/2022) [facility] History of Past illness Narrative* Problem Noted Date Resolved Date Hemorrhoids, internal 06/16/2017 01/15/2018 Overview: Added automatically from request for surgery [id number] Bright red rectal bleeding 06/16/201707/17 Overview: Added automatically from request for surgery [id number] History of colonic polyps 06/16/20172016 Overview: Added automatically from request for surgery [id number] Calculus of gallbladder with out cholecystitis without [...] Laboratory test 07/16/2012 11/04/2014 Overview: PSA done [facility] 07/06/2012 - 0.89 Pain in joint, shoulder region 04/06/2012 0 04/12/2016 GERD (gastroesophageal reflux disease) 0 07/17/2017 Diabetes mellitus 06/25/2010 09/04/2012 Headache(784.0) 10/30/2007 01/15/2018 Dysthymic disorder 07/17/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) Other malaise and fatigue 2015 Other specified disease of hair and hair follicl es 11/04/2014 documented as of this encounter (statuses as of 11/18/2022) [facility] History of Past illness Narrative* Problem Noted Date Resolved Date Hemorrhoids, internal 06/16/2017 01/15/2018 Overview: Added automatically from request for surgery [id number] Bright red rectal bleeding 06/16/201707/17 Overview: Added automatically from request for surgery [id number] History of colonic polyps 06/16/20172016 Overview: Added automatically from request for surgery [id number] Calculus of gallbladder with out cholecystitis without [...] Laboratory test 07/16/2012 11/04/2014 Overview: PSA done [facility] 07/06/2012 - 0.89 Pain in joint, shoulder region 04/06/2012 0 04/12/2016 GERD (gastroesophageal reflux disease) 0 07/17/2017 Diabetes mellitus 06/25/2010 09/04/2012 Headache(784.0) 10/30/2007 01/15/2018 Dysthymic disorder 07/17/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) Other malaise and fatigue 2015 Other specified disease of hair and hair follicl es 11/04/2014 documented as of this encounter (statuses as of 11/23/2022) [facility] History of Past illness Narrative* Problem Noted Date Diagnosed Date Resolved Date Hemorrhoids, internal 06/16/2017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: Added automatically from request for surgery [id number] Bright red rectal bleeding 06/16/2017 1 09/17/2016 Overview: Added automatically from request for surgery [id number] History of colonic polyps 06/16/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: Added automatically from request for surgery [id number] Calculus of gallbladder with out cholecystitis without [...] Laboratory test 07/16/2012 11/04/2014 Overview: PSA done [facility] 07/06/2012 - 0.89 Pain in joint, shoulder region 04/06/2012 04/12/2016 GERD (gastroesophageal reflux disease) 06/28/2010 07/17/2017 Diabetes mellitus 06/25/2010 09/04/2012 Headache(784.0) 10/30/2007 01/15/2018 Dysthymic disorder 7 Overview: Depression (non-psychotic) Other malaise and fatigue Other specified disease of h air and hair follicles 11/04/2014 documented as of this encounter (statuses as of 04/19/2023) [facility]11-03-2017 History of Past illness Narrative* Problem Noted Date Diagnosed Date Resolved Date Hemorrhoids, internal 06/16/2017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: Added automatically from request for surgery [id number] Bright red rectal bleeding 06/16/2017 1 09/17/2016 Overview: Added automatically from request for surgery [id number] History of colonic polyps 06/16/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: Added automatically from request for surgery [id number] Calculus of gallbladder with out cholecystitis without [...] Laboratory test 07/16/2012 11/04/2014 Overview: PSA done [facility] 07/06/2012 - 0.89 Pain in joint, shoulder region 04/06/2012 04/12/2016 GERD (gastroesophageal reflux disease) 06/28/2010 07/17/2017 Diabetes mellitus 06/25/2010 09/04/2012 Headache(784.0) 10/30/2007 01/15/2018 Dysthymic disorder 7 Overview: Depression (non-psychotic) Other malaise and fatigue Other specified disease of h air and hair follicles 11/04/2014 documented as of this encounter (statuses as of 06/18/2023) [facility]11-03-2017 History of Past illness Narrative* Problem Noted Date Diagnosed Date Resolved Date Hemorrhoids, internal 06/16/2017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: Added automatically from request for surgery [id number] Bright red rectal bleeding 06/16/2017 1 09/17/2016 Overview: Added automatically from request for surgery [id number] History of colonic polyps 06/16/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: Added automatically from request for surgery [id number] Calculus of gallbladder with out cholecystitis without [...] Laboratory test 07/16/2012 11/04/2014 Overview: PSA done [facility] 07/06/2012 - 0.89 Pain in joint, shoulder region 04/06/2012 04/12/2016 GERD (gastroesophageal reflux disease) 06/28/2010 07/17/2017 Diabetes mellitus 06/25/2010 09/04/2012 Headache(784.0) 10/30/2007 01/15/2018 Dysthymic disorder 7 Overview: Depression (non-psychotic) Other malaise and fatigue Other specified disease of h air and hair follicles 11/04/2014 documented as of this encounter (statuses as of 09/28/2023) [facility] Encounter for screening for malignant neoplasm of colon- Primary Special screening for malignant neoplasms, colon Personal history of colonic polyps documented in this encounter [place] note* Diagnosis History of colonic polyps- Primary Personal history of colonic polyps Epigastric pain Abdominal pain, epigastric documented in this encounter [place] note* Diagnosis Diverticulosis- Primary Diverticulosis of colon (without mention of hemorrhage) History of colonic polyps Personal history of colonic polyps Gastritis and duodenitis Unspecified gastritis and gastroduodenitis without mention of hemorrhage documented in this encounter [place] note* Diagnosis Calculus of gallbladder without cholecystitis without obstruction- Primary Calculus of gallbladder without mention of cholecystitis or obstruction RUQ pain Abdominal pain, right upper quadrant documented in this encounter [place] note* Diagnosis Pre-operative examination- Primary Preoperative examination, unspecified Other hyperlipidemia Coronary artery disease involving yuhaaviatam coronary artery of yuhaaviatam heart without angina 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 documented in this encounter [place] note* Diagnosis Calculus of gallbladder with chronic cholecystitis without obstruction- Primary Calculus of gallbladder with other cholecystitis, without mention of obstruction Back spasm Other symptoms referable to back documented in this encounter [place] note* Diagnosis Gastroesophageal reflux disease with esophagitis, unspecified whether hemorrhage- Primary Constipation, unspecified constipation type History of colonic polyps Personal history of colonic polyps Epigastric pain Abdominal pain, epigastric documented in this encounter [place] note* Diagnosis Epigastric pain- Primary Abdominal pain, epigastric documented in this encounter [facility] for referral (narrative)* Outpatient Procedure (Routine) - Pending Review Specialty Diagnoses / Procedures Referred By Jeffrey jacob Referred To Contact [facility] Diagnoses Epigastric pain Procedures EGD DIAGNOSTIC ESOPHAGOGASTRODUODENOSC OPY TRANSORAL DIAGNOSTIC Leroy Alcocer MD [address] [place] [address] [facility] [address] [place] [address] Referral ID Status Reason Start Date Expiration Date Visits Requested Visits Authorized [id number] Pending Review Auto-Generat ed Referral 09/16/2022 09/16/2023 1 1 * Outpatient Procedure (Routine) - Authorized Specialty Diagnoses / Procedures Referred By Jeffrey jacob Referred To Contact [facility] Diagnoses History of colonic polyps Procedures COLONOSCOPY SCREENING COLONOSCOPY FLX DX W/COLLJ SPEC WHEN PFRMD Edilia Walls PA-C [address] [place] [address] [address] Referral ID Status Reason Start Date Expiration Date Visits Requested Visits Authorized [id number] Authorized Auto-Generat ed Referral 08/09/2023 1 1 [facility] for referral (narrative)* Outpatient Procedure (Routine) - Closed Specialty Diagnoses / Procedures Referred By Jeffrey jacob Referred To Contact [facility] Diagnoses Epigastric pain Procedures EGD DIAGNOSTIC ESOPHAGOGASTRODUODENOSC OPY TRANSORAL DIAGNOSTIC Leroy Alcocer MD [address] [place] [address] [facility] [address] [address] Referral ID Status Reason Start Date Expiration Date V isits Requested Visits Authorized [id number] Closed Auto-Generate d Referral 09/16/2022 09/16/2023 1 1 * Outpatient Procedure (Routine) - Closed Specialty Diagnoses / Procedures Referred By Jeffrey jacob Referred To Contact [facility] Diagnoses History of colonic polyps Procedures COLONOSCOPY SCREENING COLONOSCOPY FLX DX W/COLLJ SPEC WHEN PFRMD Edilia Walls PA-C [address] [place] [address] [address] Referral ID Status Reason Start Date Expiration Date V isits Requested Visits Authorized [id number] Closed Auto-Generate d Referral 08/09/2022 08/09/2023 1 1 [facility] for referral (narrative)* Outpatient Procedure (Routine) - Authorized Specialty Diagnoses / Procedures Referred By Jeffrey jacob Referred To Contact [facility] Diagnoses Epigastric pain Procedures EGD DIAGNOSTIC ESOPHAGOGASTRODUODENOS COPY TRANSORAL DIAGNOSTIC Leroy Alcocer MD [address] [address] Referral ID Status Reason Start Date Expiration Date Visits Requested Visits Authorized [id number] Authorized Auto-Generat ed Referral 09/28/2023 09/28/2024 1 1 [facility] for visit Narrative* Outpatient Procedure (Routine) - Closed Specialty Diagnoses / Procedures Referred By Jeffrey jacob Referred To Contact [facility] Diagnoses Epigastric pain Procedures EGD DIAGNOSTIC ESOPHAGOGASTRODUODENOSC OPY TRANSORAL DIAGNOSTIC Leroy Alcocer MD [address] [place] [address] [address] Referral ID Status Reason Start Date Expiration Date V isits Requested Visits Authorized [id number] Closed Auto-Generate d Referral 09/16/2022 09/16/2023 1 1 [facility] Summary Purpose Family History No Family History [...] Date Dose Rate Site benzocaine 20% 1 [place] (TOPEX) 1 [place], TOPICAL, DIRECTED, Starting on Mon09/27/22 at 1000, [...] DATE CREATED AUTHOR AUTHOR'S ORGANIZ ATION 02/05/2018 [facility] DATE CREATED AUTHOR AUTHOR'S ORGANIZ ATION 11/16/2022 [facility] DATE CREATED AUTHOR AUTHOR'S ORGANIZ ATION 09/29/2023 [facility] Source Comments (unrecognize d section and content) In the event this informatio n is protected by the Federal Confidentiality of Alcohol and Drug Abuse Patient Records regulations: The Federal rules restrict any use of the information to criminally investigate or prosecute any alcohol or drug abuse patient.[facility] the event this information is protected by the Federal Confidentiality of Alcohol and Drug Abuse Patient Records regulations: The Federal rules restrict any use of the information to criminally investigate or prosecute any alcohol or drug abuse patient.[facility] the event this information is protected by the Federal Confidentiality of Alcohol and Drug Abuse Patient Records regulations: The Federal rules restrict any use of the information to criminally investigate or prosecute any alcohol or drug abuse patient.[facility] the event this information is protected by the Federal Confidentiality of Alcohol and Drug Abuse Patient Records regulations: The Federal rules restrict any use of the information to criminally investigate or prosecute any alcohol or drug abuse patient.[facility] the event this information is protected by the Federal Confidentiality of Alcohol and Drug Abuse Patient Records regulations: The Federal rules restrict any use of the information to criminally investigate or prosecute any alcohol or drug abuse patient.[facility] the event this information is protected by the Federal Confidentiality of Alcohol and Drug Abuse Patient Records regulations: The Federal rules restrict any use of the information to criminally investigate or prosecute any alcohol or drug abuse patient.[facility] the event this information is protected by the Federal Confidentiality of Alcohol and Drug Abuse Patient Records regulations: The Federal rules restrict any use of the information to criminally investigate or prosecute any alcohol or drug abuse patient.[facility] the event this information is protected by the Federal Confidentiality of Alcohol and Drug Abuse Patient Records regulations: The Federal rules restrict any use of the information to criminally investigate or prosecute any alcohol or drug abuse patient.[facility] the event this information is protected by the Federal Confidentiality of Alcohol and Drug Abuse Patient Records regulations: The Federal rules restrict any use of the information to criminally investigate or prosecute any alcohol or drug abuse patient.[facility] the event this information is protected by the Federal Confidentiality of Alcohol and Drug Abuse Patient Records regulations: The Federal rules restrict any use of the information to criminally investigate or prosecute any alcohol or drug abuse patient.[facility] the event this information is protected by the Federal Confidentiality of Alcohol and Drug Abuse Patient Records regulations: The Federal rules restrict any use of the information to criminally investigate or prosecute any alcohol or drug abuse patient.[facility] the event this information is protected by the Federal Confidentiality of Alcohol and Drug Abuse Patient Records regulations: The Federal rules restrict any use of the information to criminally investigate or prosecute any alcohol or drug abuse patient.[facility] the event this information is protected by the Federal Confidentiality of Alcohol and Drug Abuse Patient Records regulations: The Federal rules restrict any use of the information to criminally investigate or prosecute any alcohol or drug abuse patient.[facility] Reason for Visit (unrecogniz ed section and content) Reason Comments 09/27/2022 colon asc Patient Update Reason Comments Add EGD Reason Comments Follow Up colonoscopy Reason Comments Results CT scan from [facility] Reason Comments Abdominal Pain Reason Comments Consult Reason Comments Request Outside Medical Records Reason Comments Post op complications Reason Comments Post Op Lap walt Reason Onset Date Comments Refill Request 04/18/2023 Care Teams (unrecognized sec tion and content) Logistics Specialist Relationship Specialty Start Date End Date Marshall Yousif MD [address] [place] [id number] PCP - General Internal Medicine 10/31/22 Logistics Specialist Relationship Specialty Start Date End Date Marshall Yousif MD [address] [place] [id number] PCP - General Internal Medicine 10/31/22 Logistics Specialist Relationship Specialty Start Date End Date Marshall Yousif MD [address] [place] [id number] PCP - General Internal Medicine 10/31/22 Logistics Specialist Relationship Specialty Start Date End Date Marshall Yousif MD [address] [place], [place] [id number] PCP - General Internal Medicine 10/31/22 Logistics Specialist Relationship Specialty Start Date End Date Marshall Yousif MD [address] [place], [place] [phone] PCP - General Internal Medicine 10/31/22 FOR [...] BE BASED ON THE PRIMARY CLINICAL RECORDS. [facility] [employer] [facility] provides no warranty or guarantee of the accuracy or completeness of information in this document.
[2023-10-01 16:06] LABS: CRP 8.12 mg/L (0.0-3.0); Erythrocyte Sedimentation Rate 10 mm/hr (0-20); Lipase 33 U/L (13-75)
[2023-10-01 16:50] LABS: Bacteria 0 SEEN /hpf (None Seen); Mucous, Urine 0 SEEN /hpf (<or=2+); Red Blood Cells-Urine 0 SEEN /hpf (0-5); White Blood Cells 0 SEEN /hpf (0-5)
--- NOTE | 2023-10-01 16:56 | EX.ED.DYSGE1 ---
HPI <Ingrid Vaughn RN - Last Filed: 10/01/23 18:21> History of Present Illness Chief Complaint: Abd Pain Informant: patient and spouse/S.O. Onset/Context/Timing Onset: Month(s) (1.5 months) Context: Sudden Onset Timing: Continuous Location: Left lower and right lower quadrant Current Severity: 6/10 Maximum Severity: 8/10 Worsened by: Eating Relieved by: Rest Associated Symptoms Associated Symptoms: Intermittent fever, chills, dizziness, decreased appetite, and diarrhea. Narrative Narrative: Patient presents to the ED for lower abdominal pain and decreased p.o. intake since approximately August 14, 2023 at which time he was seen in the ED. Of note, patient reports having 2 herniated lumbar disks repaired 07/18/2023. Patient describes lower abdominal pain as cramping, worse with eating. She currently rates pain 6 out of 10 with 8 out of 10 being worst pain. Patient describes 30 pound weight loss since 07/18/2023. Continues to drink water. Reports any food goes through me causing diarrhea. reports patient has difficulty with constipation. Patient reports daily episodes of dry heaves. Patient also reports intermittent fever and chills. Reports fever of 100.4 today. Patient reports taking Pepto-Bismol at home without relief. [facility]23 and reports bilirubin was found in his urine. Saw Dr. Bear on 09/27/2023 with a normal urinalysis. Patient prescribed sucralfate at that time. Patient reports no relief from sucralfate. Patient denies dysuria, hematuria, and urinary frequency. Patient also reports lower back pain. Describes it as stabbing and rates 4-5 out of 10. Patient intermittently takes oxycodone for back pain with last dose being this morning at 10 AM. Patient denies any drainage from back wound. Patient scheduled for EGD on 10/11/2023. Prior similar symptoms: Yes Recent Illness/Hospitalization: No PFSH <Ingrid Vaughn RN - Last Filed: 10/01/23 18:21> PFSH Medical History Abdominal pain Agent orange exposure Alcohol use Ambulates with cane Arthritis Arthropathy of cervical facet joint Asthma Atherosclerotic heart disease of [place] coronary artery without angina pectoris Back pain Bilirubinuria Cancer Cardiology follow-up encounter Cervical spondylosis Chondromalacia of both patellae Chondromalacia, left knee Chondromalacia, right knee Contact with or exposure to other viral diseases COVID-19 virus detected (11/19/20) Degeneration of cervical disc without myelopathy Degeneration of intervertebral disc of lumbosacral region Diabetes Dietary restriction Essential (primary) hypertension Fusion of spine, cervical region High cholesterol (~08/21/23) History of echocardiogram History of IBS History of pain when walking History of steroid therapy History of stress test Hyperlipemia Injury of head and neck Left knee DJD Nonrheumatic aortic (valve) stenosis with insufficiency Obesity Opioid dependence Prostate disease Radiculopathy of lumbosacral region Restless legs Right knee DJD Shortness of breath on exertion Smokeless tobacco use Spinal stenosis of lumbosacral region Spondylosis of lumbosacral region without myelopathy or radiculopathy Syncope Tear of medial meniscus of right knee Type 2 diabetes mellitus Wears hearing aid Home Medications aspirin 81 mg tablet,delayed release 81 mg PO DAILY HEART HEALTH 12/23/15 [History Last Taken 07/11/23] multivitamin 1 tab PO DAILY 07/09/19 [History Last Taken 07/17/23 06:00] baclofen 10 mg tablet 10 mg PO PRN PRN Muscle Spasm 05/14/20 [History Last Taken 07/17/23 18:00] gabapentin 100 mg capsule 200 mg PO TID 05/14/20 [History Last Taken 07/17/23 18:00] naproxen sodium 220 mg capsule (Aleve) 220 mg PO BID PRN Pain 02/04/22 [History Last Taken 07/17/23 18:00] albuterol sulfate 90 mcg/actuation aerosol inhaler 1 - 2 puff inhalation Q4H PRN PRN Wheezing #8.5 grams 04/21/22 [Rx Last Taken Unknown] handicap placard #1 ea 04/21/22 [Rx Last Taken Unknown] blood sugar diagnostic (FreeStyle Lite Strips) #100 ea 09/15/22 [Rx Last Taken Unknown] blood-glucose meter (FreeStyle Lite Meter kit) #1 ea 09/15/22 [Rx Last Taken Unknown] fluticasone propionate 50 mcg/actuation nasal spray,suspension 1 - 2 spray intranasal BID PRN allergies, congestion #16 grams 04/27/23 [Rx Last Taken 07/18/23 03:00] metformin 500 mg tablet 500 mg PO BID DIABETES #180 tabs 04/27/23 [Rx Last Taken 07/17/23 18:00] linaclotide 72 mcg capsule 72 mcg PO DAILY IBS #90 caps 06/27/23 [Rx Last Taken 07/17/23 06:00] acetaminophen 500 mg capsule 1,000 mg PO Q6H PRN pain 07/18/23 [History Last Taken 07/17/23 18:00] atorvastatin 40 mg tablet 40 mg PO QHS CHOLESTEROL #90 tabs 08/21/23 [Rx Last Taken Unknown] medical marijuana card PO 08/21/23 [History Last Taken Unknown] omeprazole 40 mg capsule,delayed release 40 mg PO DAILY PRN Reflux #30 caps 08/21/23 [Rx Last Taken Unknown] tamsulosin 0.4 mg capsule 0.4 mg PO QHS #30 caps 08/21/23 [Rx Last Taken Unknown] trazodone 50 mg tablet 50 - 100 mg (1 - 2 x 50 mg) PO QHS sleep #90 tabs 08/21/23 [Rx Last Taken Unknown] sucralfate 1 gram tablet (Carafate) 1 g PO QACHS #30 tabs 09/27/23 [Rx Last Taken Unknown] metoclopramide HCl 10 mg tablet (Reglan) 10 mg PO Q8H PRN PRN nausea and vomiting #14 tabs 10/01/23 [Rx Last Taken Unknown] Allergy/AdvReac Type Severity Reaction Status Date / Time adhesive tape Allergy Rash Verified 10/01/23 15:01 sertraline [From Zoloft] AdvReac Unknown Verified 10/01/23 15:01 Family History Brother Heart disease Myocardial infarction 60's CAD (coronary artery disease) Father Myocardial infarction 65 CAD (coronary artery disease) Surgical History H/O cervical spine surgery (08/2020) H/O coronary artery bypass surgery (09/14/11) History of back surgery History of carpal tunnel release History of herniorrhaphy History of lateral meniscus repair of right knee (~2022) History of left heart catheterization (09/09/11) Hx laparoscopic cholecystectomy (~11/2022) Hx of bilateral cataract extraction Status post discectomy for herniated nucleus pulposus Social History Smoking Status: Unknown if ever smoked alcohol intake: current alcohol intake frequency: a few times a month substance use type: does not use caffeine: Yes Type: coffee Number of servings: 2 ROS <Ingrid Vaughn RN - Last Filed: 10/01/23 18:21> ROS ED Constitutional Constitutional ED: Reports chills, fever(s) and weight loss; Denies sweats Eyes Eyes: Denies blurry vision or change in vision ENT ENT ED: Denies ear pain or sore throat Cardiovascular Cardiovascular: Denies chest pain, palpitations or racing heartbeat Respiratory/Chest Respiratory/Chest: Denies cough or dyspnea Gastrointestinal Gastrointestinal: Reports abdominal pain, constipation, diarrhea, nausea and other Details: Dry heaves ; Denies melena Genitourinary Genitourinary ED: Denies dysuria, hematuria or urinary frequency Musculoskeletal Musculoskeletal: Reports arthralgias and myalgias Neurologic Neurologic: Denies headache(s), paresthesias or weakness EXAM <Ingrid Vaughn RN - Last Filed: 10/01/23 18:21> Physical Exam Const Vital Signs: 10/01/23 15:01 10/01/23 15:43 Temperature 97.3 F L Temperature Source Temporal Pulse Rate 107 H Respiratory Rate 18 18 Blood Pressure 114/81 H Blood Pressure Mean 92 Pulse Ox 98 Oxygen Delivery Method Room Air Positive well nourished and well developed General Appearance ED: well developed and NAD; Negative for cyanotic or diaphoretic HEENT Reports moist mucous membranes Eyes PERRL Chest Wall inspection of chest normal and palpation of chest normal Chest Narrative: Diastolic murmur noted Resp normal respiratory effort and clear to auscultation bilaterally Cardio regular rate, regular rhythm, S1 normal heart sound and S2 normal heart sound; Negative for no murmurs GI non-distended Auscultation: hyperactive bowel sounds Palpation: soft and tender LLQ Back/Spine Lumbar Spine / Lower Back: Negative for lumbar spinal tenderness Extremity normal to inspection General Extremety ED: Negative for edema or tenderness General Extremity: Negative for edema Neuro oriented x3 Sensorium / Orientation: alert Motor Exam: strength 5/5 throughout Psych mental status grossly normal Skin no rashes or lesions noted Skin Narrative: Lumbar spine incision well-approximated and without redness, edema, or drainage noted. <Dr. Elvia Pineda MD - Last Filed: 10/01/23 18:39> Physical Exam Const Vital Signs: 10/01/23 15:01 10/01/23 15:43 Temperature 97.3 F L Temperature Source Temporal Pulse Rate 107 H Respiratory Rate 18 18 Blood Pressure 114/81 H Blood Pressure Mean 92 Pulse Ox 98 Oxygen Delivery Method Room Air MDM <Ingrid Vaughn RN - Last Filed: 10/01/23 18:21> MDM MDM Narrative Medical decision making narrative: IV line initiated. Labwork obtained to evaluate for leukocytosis, anemia, and electrolyte derangement. Urinalysis obtained to evaluate for infection/hematuria. EKG obtained to evaluate for cardiac arrhythmia/ischemia. CT abdomen with IV and oral contrast ordered to evaluate for colitis or diverticulitis. Reglan and Benadryl ordered for nausea. History & Record Review Discussion w/independent historian: Family Lab Data Labs: Laboratory Results - last 24 hr 10/01/23 10/01/23 15:25 16:43 WBC 9.2 RBC 4.65 Hgb 13.2 Hct 40.1 MCV 86.2 MCH 28.4 MCHC 32.9 RDW Std Deviation 39.9 RDW Coeff of Frank[place] 12.9 Plt Count 316 MPV 8.2 Immature Gran % (Auto) 0.300 Neut % (Auto) 67.5 Lymph % (Auto) 22.9 [place] % (Auto) 8.7 Eos % (Auto) 0.2 Baso % (Auto) 0.4 Absolute Neuts (auto) 6.2 Absolute Lymphs (auto) 2.11 Nucleated RBC % 0 ESR 10 Sodium 133 L Potassium 3.4 L Chloride 99 Carbon Dioxide 26.0 Anion Gap 8 BUN 20 H Creatinine 1.03 Estim Creat Clear Calc 68.91 Est GFR (MDRD) Af Amer 92 Est GFR (MDRD) Non-Af 76 BUN/Creatinine Ratio 19.4 Glucose 141 H Calcium 9.4 Total Bilirubin 1.20 H AST 19 ALT 21 Alkaline Phosphatase 102 C-React Prot Ext Range 8.12 H Total Protein 7.6 Albumin 3.7 Globulin 3.9 Albumin/Globulin Ratio 0.9 Lipase 33 Urine Color Yellow Urine Clarity Sl. Cloudy Urine pH 6.0 Ur Specific [place] 1.010 Urine Protein Negative Urine Glucose (UA) Normal Urine Ketones 15 H Urine Occult Blood Negative Urine Nitrite Negative Urine Bilirubin Negative Urine Urobilinogen Normal Ur Leukocyte Esterase Negative Urine RBC 0 SEEN Urine WBC 0 SEEN Ur Squamous Epith Cells 0-5 SEEN Amorphous Sediment 1+ URATE Urine Bacteria 0 SEEN Urine Mucus 0 SEEN Radiography Diagnostic Testing: Clinical Impression(s) from Imaging Studies Abdomen/Pelvis CT 10/01/23 15:51 IMPRESSION: (NOT LISTED IN ORDER OF SIGNIFICANCE) There are no acute findings. Other findings as above. Electronically Signed: Oli Marcial MD at 17:54 EST , EKG Initial EKG: Attestation: I personally reviewed and interpreted this EKG as follows: Interpretation: Sinus Rhythm Comments: Sinus rhythm with a rate of 70. No dysrhythmias or ischemia noted. Differential Diagnosis Abdominal Pain: Bowel obstruction and UTI Management Discussion w/another healthcare provider: Other (Dr. Seymour, ED provider.) Treatment and Re-Evaluation :: CBC shows normal white count at 9.2 with neutrophils 67.5. Chemistry shows slightly low sodium at 133, potassium 3.4, BUN slightly elevated at 20, glucose slightly elevated at 141, total bili slightly elevated at 1.2, and CRP elevated at 8.12. Urinalysis showed ketones of [address] of the abdomen shows multiple diverticula consistent with diverticulosis. No acute findings. Upon reevaluation, patient resting in bed with at bedside. Reports nausea and abdominal pain slightly improved. Discussed results with patient and . Patient aware CT contrast may cause loose stool for the next 24 hours. Will prescribe Reglan for home for nausea. Patient to follow-up with Dr. Bear in 1 week. Patient also to keep appointment for EGD on 10/11/2023. Patient agreeable with plan. Patient to be discharged home. <Dr. Elvia Pineda MD - Last Filed: 10/01/23 18:39> [facility] Lab Data Labs: Laboratory Results - last 24 hr 10/01/23 10/01/23 15:25 16:43 WBC 9.2 RBC 4.65 Hgb 13.2 Hct 40.1 MCV 86.2 MCH 28.4 MCHC 32.9 RDW Std Deviation 39.9 RDW Coeff of [place] 12.9 Plt Count 316 MPV 8.2 Immature Gran % (Auto) 0.300 Neut % (Auto) 67.5 Lymph % (Auto) 22.9 [place] % (Auto) 8.7 Eos % (Auto) 0.2 Baso % (Auto) 0.4 Absolute Neuts (auto) 6.2 Absolute Lymphs (auto) 2.11 Nucleated RBC % 0 ESR 10 Sodium 133 L Potassium 3.4 L Chloride 99 Carbon Dioxide 26.0 Anion Gap 8 BUN 20 H Creatinine 1.03 Estim Creat Clear Calc 68.91 Est GFR (MDRD) Af Amer 92 Est GFR (MDRD) Non-Af 76 BUN/Creatinine Ratio 19.4 Glucose 141 H Calcium 9.4 Total Bilirubin 1.20 H AST 19 ALT 21 Alkaline Phosphatase 102 C-React Prot Ext Range 8.12 H Total Protein 7.6 Albumin 3.7 Globulin 3.9 Albumin/Globulin Ratio 0.9 Lipase 33 Urine Color Yellow Urine Clarity Sl. Cloudy Urine pH 6.0 Ur Specific [place] 1.010 Urine Protein Negative Urine Glucose (UA) Normal Urine Ketones 15 H Urine Occult Blood Negative Urine Nitrite Negative Urine Bilirubin Negative Urine Urobilinogen Normal Ur Leukocyte Esterase Negative Urine RBC 0 SEEN Urine WBC 0 SEEN Ur Squamous Epith Cells 0-5 SEEN Amorphous Sediment 1+ URATE Urine Bacteria 0 SEEN Urine Mucus 0 SEEN Radiography Diagnostic Testing: Clinical Impression(s) from Imaging Studies Abdomen/Pelvis CT 10/01/23 15:51 IMPRESSION: (NOT LISTED IN ORDER OF SIGNIFICANCE) There are no acute findings. Other findings as above. Electronically Signed: Oli Marcial MD at 17:54 EST , Treatment and Re-Evaluation :: CBC shows normal white count at 9.2 with neutrophils 67.5. Chemistry shows slightly low sodium at 133, potassium 3.4, BUN slightly elevated at 20, glucose slightly elevated at 141, total bili slightly elevated at 1.2, and CRP elevated at 8.12. Urinalysis showed ketones of [address] of the abdomen shows multiple diverticula consistent with diverticulosis. No acute findings. Upon reevaluation, patient resting in bed with at bedside. Reports nausea and abdominal pain slightly improved. Discussed results with patient and . Patient aware CT contrast may cause loose stool for the next 24 hours. Will prescribe Reglan for home for nausea. Patient to follow-up with Dr. Bear in 1 week. Patient also to keep appointment for EGD on 10/11/2023. Patient agreeable with plan. Patient to be discharged home. Patient seen and evaluated with JOSE ARMANDO student. I personally interviewed and examined the patient. I was involved in all aspects of patient's orders, interpretation of results, and treatment. Patient presents with abdominal pain and continued difficulty with eating. Patient was seen in this emergency room for similar complaints previously. He has been having ongoing problems since having back surgery in early July. He reports a 30 pound weight loss since that time. [facility] this past week and followed up the next day by his PCP. He was started on Carafate and arrangements made for patient to have an EGD performed later this month. Patient lying in bed no acute distress. Head and neck examination unremarkable. He has moist mucous membranes. Heart is regular rate and rhythm. Lung sounds are clear. Abdomen is soft with mild tenderness in the left upper and lower abdomen. No palpable masses. No guarding or rebound. Active bowel sounds are noted. Patient treated with IV fluids and Reglan. CBC reveals normal white count at 9.2 with a hemoglobin of 13.2. Differential is unremarkable. Chemistry studies reveal sodium of 133 and potassium 3.4. Normal renal function. CRP is slightly elevated at 8.12 but sed rate is normal at 10. Lipase is normal at 33. Urinalysis reveals 1+ urate crystals with no evidence of hematuria or infection. [address] scan of the abdomen pelvis with p.o. and IV contrast obtained. This reveals evidence of diverticulosis with no evidence of diverticulitis. No acute abnormalities appreciated. Test results discussed with patient and at bedside. He is to continue supportive care. We will write him Reglan to help with nausea at home. He is to follow-up for his EGD as currently scheduled. Return instructions given. Discharge Plan Triage Chief Complaint: Abd Pain ED Provider: Elvia Pineda Dx/Rx/DC Orders Clinical Impression: Abdominal pain Instructions: ED Abdominal Pain Unkn Cause Male... Prescriptions: New metoclopramide HCl [Reglan] 10 mg tablet 10 mg PO Q8H PRN PRN (Reason: nausea and vomiting) Qty: 14 0RF No Action multivitamin Tablet 1 tab PO DAILY (DME) handicap placard See Rx Instructions .Route .MEDSUPPLY Qty: 1 0RF Rx Instructions: fatique , pain in right knee , oteoarathritis naproxen sodium [Aleve] 220 mg capsule 220 mg PO BID PRN (Reason: Pain) medical marijuana card PO tamsulosin 0.4 mg capsule 0.4 mg PO QHS Qty: 30 3RF aspirin 81 MG tablet,delayed release (DR/EC) 81 mg PO DAILY baclofen 10 MG tablet 10 mg PO PRN PRN (Reason: Muscle Spasm) gabapentin 100 MG capsule 200 mg PO TID acetaminophen 500 mg capsule 1,000 mg PO Q6H PRN (Reason: pain) albuterol sulfate 90 mcg/actuation HFA aerosol inhaler 1 - 2 puff INHALATION Q4H PRN PRN (Reason: Wheezing) Qty: 8.5 3RF (DME) FreeStyle Lite Strips Strip See Rx Instructions .Route Qty: 100 3RF Rx Instructions: Twice daily (DME) blood-glucose meter [FreeStyle Lite Meter] Kit See Rx Instructions .Route Qty: 1 0RF Rx Instructions: Test twice daily fluticasone propionate 50 mcg/actuation spray,suspension 1 - 2 spray intranasal BID PRN (Reason: allergies, congestion) Qty: 16 3RF Rx Instructions: administer into each nostril; 2 sprays in each nostril for the first week metformin 500 mg tablet 500 mg PO BID Qty: 180 3RF linaclotide 72 mcg capsule 72 mcg PO DAILY Qty: 90 3RF atorvastatin 40 mg tablet 40 mg PO QHS Qty: 90 3RF Hold Instructions: 10/01/21- Myalgia and sleep issues omeprazole 40 mg capsule,delayed release(DR/EC) 40 mg PO DAILY PRN (Reason: Reflux) Qty: 30 1RF trazodone 50 mg tablet 50 - 100 mg PO QHS Qty: 90 3RF sucralfate [Carafate] 1 gram tablet 1 g PO QACHS Qty: 30 0RF Primary Care Provider: Marlen Bear Referrals: Marlen Bear MD [Primary Care Provider] - Activity Restrictions/Additional Instructions: Follow-up with Dr. Bear in 1 week. Keep appointment for EGD on 10/11/2023. You may have loose stool for the next 24 hours after the oral contrast for your CAT scan. Follow bland diet until feeling better. Reglan every 8 hours for nausea. Disposition Disposition: Home, Self Care
[2023-10-01 16:57] LABS: Color, Urine Yellow (Yellow); Glucose, Dipstick Normal (Normal); Ketone-Dipstick 15 mg/dl (Negative); Leukocyte Esterase-Dipstick Negative /ul (Negative); Nitrite-Dipstick Negative (Negative); Occult Blood-Urine Negative /ul (Negative); Protein-Dipstick Negative (Negative); Urine Bilirubin Dipstick Negative (Negative); Urine Clarity Sl. Cloudy (Clear); Urine Urobilinogen Normal (Normal)
[2023-10-01 17:06] LABS: Squamous Epithelial Cells - UA 0-5 SEEN /hpf (0-5)
[2023-10-01 17:07] LABS: Amorphous Sediment 1+ URATE
[2023-10-01 18:43] VITALS: BP 130/93; PULSE 110; RESP 18; TEMP 36.5; O2SAT 97
[2023-10-01 18:44] VITALS: BP 130/93; PULSE 110; RESP 18; TEMP 36.5; O2SAT 97
== END 2023-10-01 18:45 | disposition home or self-care (01) ==
PROVIDERS: Emergency Provider Emergency Medicine; PCP Internal Medicine; Visit Provider Emergency Medicine
DX: R10.9 Unspecified abdominal pain (principal); E11.9 Type 2 diabetes mellitus without complications; R50.9 Fever, unspecified; R11.0 Nausea; R19.7 Diarrhea, unspecified; I10 Essential (primary) hypertension; E78.00 Pure hypercholesterolemia, unspecified; I25.10 Atherosclerotic heart disease of native coronary artery without angina pectoris; Z79.899 Other long term (current) drug therapy
CPT/HCPCS: 74177; 80053; 81001; 83690; 85025; 85652; 86140; 93005; 96374; 96375; 99282; Q9967; A4216

== ENCOUNTER → 2023-10-06 | Outpatient (CLI) | payer MEDICARE, SELFPAY ==
--- NOTE | 2023-10-06 08:54 | RDU_ITS ---
Reason For Study: Abdominal pain after meals Right Renal Artery Left Renal Artery Right renal artery ostium Left renal artery ostium 100.1/25.5 88.8/30.3 RSV/EDV. PSV/EDV. Right renal artery proximal 144/43 Left renal artery proximal PSV/EDV PSV/EDV. 63.4/20.4 . Right renal artery mid 117.1 Left renal artery mid 70.7/24.1 PSV/EDV. PSV/EDV . Right renal artery distal Left renal artery distal 57.2/20.4 88.1/31.8 PSV/EDV. PSV/EDV. Aorta Proximal abdominal aorta 2.09 x 2.04 cm . Proximal abdominal aorta peak systolic velocity is 36.7 cm/sec . Distal abdominal aorta 1.84 x 1.87 cm . Distal abdominal aorta peak systolic velocity is 77.2 cm/sec . Celiac artery, 178.5 cm/sec. Splenic artery, 134.5 cm/sec. Hepatic artery, 113.8 cm/sec. SMA origin, 180.6 cm/sec. SMA prox, 129.3 cm/sec. SMA mid, 90.4 cm/sec. SMA distal, 95.6 cm/sec. TIFF origin, 84.8 cm/sec. TIFF prox, 93 cm/sec. TIFF mid, 103.4 cm/sec. TIFF distal, 85.3 cm/sec. VL/Renal Artery Duplex Ultrasound Interpretation Summary Celiac artery patent with normal velocities and no evidence of stenosis. Superior mesenteric artery patent with normal velocities and no evidence of bennie nosis. Inferior mesenteric artery patent with normal velocities and no evidence of bennie nosis. Right renal artery patent with normal velocities and no evidence of stenosis. Left renal artery patent with normal velocities and no evidence of stenosis. Ordering Physician: Marlen Bear Referring Physician: Marlen Bear Performed By: Rena Rodríguez RVT
--- OUTSIDE RECORDS SUMMARY | 2023-10-06 09:20 | XMS RPT_ITS | CCD ---
Author Name Unknown Address [address] [place] [address] Organization [facility] Care Team Providers Care Coal Yard Supervisor Name Role Phone HOLLY COHEN Unavailable Unavailable HOLLY COHEN Unavailable Unavailable Jose Luis Lopez Unavailable Unavailable HOLLY COHEN Unavailable Unavailable HOLLY COHEN Unavailable Unavailable Unavailable Primary Care Provider UnavailMarshall Soliz MD Primary Care Provider [phone] LEROY ALCOCER Attending Unavailable LEROY ALCOCER Admitting Unavailable Marshall Yousif MD Primary Care Provider MARSHALL YOUSIF Primary Care Unavailable Edilia Walls Attending Unavailable MARSHALL YOUSIF Primary Care Unavailable LEROY ALCOCER Attending Unavailable Edilia Walls Attending Unavailable LEROY ALCOCER Referring Unavailable Allergies Allergy Classification Reported Allergen(s) Allergy Type Date of Onset Reaction(s) Facility (17 sources) Adhesive Tape; Translations: [ADHESIVE TAPE (ROSINS)] Propensity to adverse reactions (disorder) 5 Itching [facility] Repository (17 sources) Contrast media; Translations: [CONTRAST DYE] Propensity to adverse reactions (disorder) 9 [facility] Repository (2 sources) cortisone; Translations: [CORTISONE] Drug Allergy 4 [facility] (17 sources) sertraline; Translations: [SERTRALINE] Drug Allergy 4 [facility] (17 sources) FD AND C BLUE NO.1; Translations: [FD AND C BLUE NO.1] Propensity to adverse reactions (disorder) 9 [facility] Medications Completed/Discontinued Medications Medication Drug [...] disease (15 sources) Atherosclerotic heart disease of [place] coronary artery without angina pectoris; Translations: [Coronary [...] 177.8 cm Edilia Titi PA-C Work Phone: [facility] 11-18-2022 09:25-0400 Body temperature 98.01 [degF] Edilia Dormont PA-C Work Phone: [facility] 11-18-2022 09:25-0400 Body weight 96.62 kg Edilia Titi PA-C Work Phone: [facility] 11-18-2022 09:25-0400 Diastolic blood pressure 78 mm[Hg] Edilia Dormont PA-C Work Phone: [facility] 11-18-2022 09:25-0400 Heart rate 89 /min Edilia Titi PA-C Work Phone: [facility] 11-18-2022 09:25-0400 SaO2% (BldA) [Mass fraction] 95 % Edilia Titi PA-C Work Phone: [facility] 11-18-2022 09:25-0400 Systolic blood pressure 140 mm[Hg] Edilia Dormont PA-C Work Phone: [facility] 11-04-2022 11:02-0400 Body height 177.8 cm Pacc 1 Work Phone: [facility] 11-04-2022 11:02-0400 Body temperature 98.2 [degF] Pacc 1 Work Phone: [facility] 11-04-2022 11:02-0400 Body weight 99.34 kg Pacc 1 Work Phone: [facility] 11-04-2022 11:02-0400 Diastolic blood pressure 82 mm[Hg] Pacc 1 Work Phone: [facility] 11-04-2022 11:02-0400 Heart rate 69 /min Pacc 1 Work Phone: [facility] 11-04-2022 11:02-0400 Respiratory rate 14 /min Pacc 1 Work Phone: [facility] 11-04-2022 11:02-0400 SaO2% (BldA) [Mass fraction] 97 % Pacc 1 Work Phone: [facility] 11-04-2022 11:02-0400 Systolic blood pressure 132 mm[Hg] Pacc 1 Work Phone: [facility] 10-20-2022 08:49-0500 Body height 177.8 cm Leroy Alcocer MD Work Phone: [facility] 10-20-2022 08:49-0500 Body temperature 97.9 [degF] Leroy Alcocer MD Work Phone: [facility] 10-20-2022 08:49-0500 Body weight 100.25 kg Leroy Alcocer MD Work Phone: [facility] 10-20-2022 08:49-0500 Diastolic blood pressure 78 mm[Hg] Leroy Alcocer MD Work Phone: [facility] 10-20-2022 08:49-0500 Heart rate 80 /min Leroy Alcocer MD Work Phone: [facility] 10-20-2022 08:49-0500 Respiratory rate 12 /min Leroy Alcocer MD Work Phone: [facility] 10-20-2022 08:49-0500 SaO2% (BldA) [Mass fraction] 96 % Leroy Alcocer MD Work Phone: [facility] 10-20-2022 08:49-0500 Systolic blood pressure 122 mm[Hg] Leroy Alcocer MD Work Phone: [facility] 10-07-2022 15:25-0500 Body temperature 97.9 [degF] Edilia Dormont PA-C Work Phone: [facility] 10-07-2022 15:25-0500 Diastolic blood pressure 88 mm[Hg] Edilia Titi PA-C Work Phone: [facility] 10-07-2022 15:25-0500 Heart rate 82 /min Edilia Titi PA-C Work Phone: [facility] 10-07-2022 15:25-0500 SaO2% (BldA) [Mass fraction] 95 % Edilia Titi PA-C Work Phone: [facility] 10-07-2022 15:25-0500 Systolic blood pressure 112 mm[Hg] Edilia Titi PA-C Work Phone: [facility] 09-27-2022 11:00-0500 Diastolic blood pressure 67 mm[Hg] Leroy Alcocer MD Work Phone: [facility] 09-27-2022 11:00-0500 Heart rate 67 /min Leroy Alcocer MD Work Phone: [facility] 09-27-2022 11:00-0500 Respiratory rate 16 /min Leroy Alcocer MD Work Phone: [facility] 09-27-2022 11:00-0500 SaO2% (BldA) [Mass fraction] 93 % Leroy Alcocer MD Work Phone: [facility] 09-27-2022 11:00-0500 Systolic blood pressure 149 mm[Hg] Leroy Alcocer MD Work Phone: [facility] 09-27-2022 07:58-0500 Body temperature 97.39 [degF] Leroy Alcocer MD Work Phone: [facility] 09-27-2022 07:58-0500 Body weight 100.1 kg Leroy Alcocer MD Work Phone: [facility] 08-09-2022 13:11-0500 Body height 177.8 cm Edilia Dormont PA-C Work Phone: [facility] 08-09-2022 13:050 Body temperature 97.2 [degF] Edilia Dormont PA-C Work Phone: [facility] 08-09-2022 13:050 Body weight 100.06 kg Edilia Dormont PA-C Work Phone: [facility] 08-09-2022 [id number] Diastolic blood pressure 76 mm[Hg] Edilia Titi PA-C Work Phone: [facility] 08-09-2022 13:050 Heart rate 82 /min Edilia Dormont PA-C Work Phone: [facility] 08-09-2022 13:0500 SaO2% (BldA) [Mass fraction] 97 % Edilia Dormont PA-C Work Phone: [facility] 08-09-2022 [id number] Systolic blood pressure 108 mm[Hg] Edilia Dormont PA-C Work Phone: [facility] Encounters Encounter Date Encounter Type Care [...] MD Work Phone: Start: 09-27-2022 Colonoscopy Edilia Dormont PA-C Work Phone: Start: 06-21-2017 Colonoscopy Edilia Dormont PA-C Work Phone: Plan of Treatment Date Care Activity Detail Author Start: 09-27-2027 Colonoscopy COLONOSCOPY [facility] Start: 09-27-2027 COLORECTAL CANCER SCREENING COLORECTAL CANCER SCREENING [facility] Start: 09-27-2027 Screening for malignant neoplasm of colon [facility] Start: 08-14-2023 Advance Directive Discussion Advance Directive Discussion [facility] Start: 08-14-2023 Depression Assessment Depression Assessment [facility] Start: 04-14-2023 Covid-19 Vaccine () Covid-19 Vaccine () [facility] Start: 04-14-2023 Influenza vaccination [facility] Start: 08-14-2022 ADVANCE DIRECTIVE DISCUSSION ADVANCE DIRECTIVE DISCUSSION [facility] Start: 08-14-2022 DEPRESSION ASSESSMENT DEPRESSION ASSESSMENT [facility] Start: 06-21-2022 Colonoscopy COLONOSCOPY [facility] Start: 06-21-2022 COLORECTAL CANCER SCREENING COLORECTAL CANCER SCREENING [facility] Start: 04-14-2022 Influenza vaccination INFLUENZA (#1) [facility] Start: 07-10-2021 COVID-19 VACCINE (4 - Booster for Pfizer series) COVID-19 VACCINE (4 - Booster for Pfizer series) [facility] Start: 07-10-2021 COVID-19 VACCINE (4 - Pfizer series) COVID-19 VACCINE (4 - Pfizer series) [facility] Start: 04-17-2020 Hepatitis B screening URINE ALBUMIN:CREATININE RATIO [facility] Start: 04-09-2020 Hepatitis B surface antibody level LDL CHOLESTEROL [facility] Start: 03-20-2020 PNEUMOCOCCAL: 65+ (3 - PPSV23 if available, else PCV20) PNEUMOCOCCAL: 65+ (3 - PPSV23 if available, else PCV20) [facility] Start: 03-20-2020 PNEUMOCOCCAL: 65+ (3 - PPSV23 or PCV20) PNEUMOCOCCAL: 65+ (3 - PPSV23 or PCV20) [facility] Start: 01-28-2020 Shingrix Vaccine (2 of 2) Shingrix Vaccine (2 of 2) [facility] Start: 11-29-2019 Glaucoma screening Dilated Retinal Exam [facility] Start: 11-29-2019 Hepatitis C antibody, confirmatory test DILATED RETINAL EXAM [facility] Start: 11-22-2019 ANNUAL PCP TEAM CHRONIC DISEASE VISIT ANNUAL PCP TEAM CHRONIC DISEASE VISIT [facility] Start: 10-10-2019 Hemoglobin A1c measurement HbA1C [facility] Start: 10-10-2019 Hemoglobin A1c/Hemoglobin.total in Blood HBA1C [facility] Start: 07-17-2019 3 comp foot exam completed DIABETIC FOOT EXAM [facility] Start: 07-17-2019 Diabetic foot examination Diabetic Foot Exam [facility] Start: 2013 Hepatitis B Vaccine (1 of 3 - Risk 3-dose series) Hepatitis B Vaccine (1 of 3 - Risk 3-dose series) [facility] Start: 2013 RSV Vaccine (1 - 1-dose 60+ series) RSV Vaccine (1 - 1-dose 60+ series) [facility] Start: 03-08-2013 Urine microalbumin profile [facility] Start: 2003 SHINGRIX VACCINE (1 of 2) SHINGRIX VACCINE (1 of 2) [facility] Start: 1998 COLOGUARD (FIT-DNA) COLOGUARD (FIT-DNA) [facility] Start: [address] COLONOGRAPHY [facility] Start: 1998 FECAL OCCULT BLOOD FECAL OCCULT BLOOD [facility] Start: 1998 Screening for malignant neoplasm of colon [facility] Start: 1998 SIGMOIDOSCOPY SIGMOIDOSCOPY [facility] Start: 1983 Zoledronic acid therapy ALPHA-1 ANTITRYPSIN DEFICIENCY SCREENING [facility] Start: 1971 SPIROMETRY SPIROMETRY [facility] End: 09-16-2023 EGD DIAGNOSTIC EGD DIAGNOSTIC Endoscopy Routine Epigastric pain 1 Occurrences starting 09/16/2022 until 09/16/2023 [facility] Work Phone: Immunizations Immunization Date Immunization Notes Care Provider Fa chata 03-14-2022 influenza virus vacc ine, unspecified formulation Leroy Alcocer MD Work Phone: [facility] 07-17-2018 influenza, high dose seasonal, preservative-free Edilia Walls PA-C Work Phone: [facility] Work Phone: 07-17-2018 pneumococcal conjuga te vaccine, 13 valent Edilia Walls PA-C Work Phone: [facility] Work Phone: 07-17-2017 influenza, injectabl e, quadrivalent, contains preservative Edilia Titi PA-C Work Phone: [facility] 07-15-2016 influenza, injectabl e, quadrivalent, contains preservative Edilia Dormont PA-C Work Phone: [facility] 07-29-2015 influenza, injectabl e, quadrivalent, contains preservative Edilia Dormont PA-C Work Phone: [facility] Work Phone: 03-20-2015 pneumococcal polysaccharide vaccine, 23 valent Edilia Dormont PA-C Work Phone: [facility] 06-10-2014 influenza, seasonal, injectable Edilia Titi PA-C Work Phone: [facility] 03-07-2013 tetanus and diphther ia toxoids, not adsorbed, for adult use Edilia Titi PA-C Work Phone: [facility] 06-14-2012 influenza virus vacc ine, unspecified formulation Edilia Dormont PA-C Work Phone: [facility] 06-25-2010 influenza virus vacc ine, unspecified formulation Edilia Dormont PA-C Work Phone: [facility] 06-05-2009 influenza virus vacc ine, unspecified formulation Edilia Titi PA-C Work Phone: [facility] Work Phone: 07-18-2007 influenza virus vacc ine, unspecified formulation Edilia Dormont PA-C Work Phone: [facility] Work Phone: 06-13-2006 influenza virus vacc ine, unspecified formulation Edilia Dormont PA-C Work Phone: [facility] Work Phone: Payers Date Payer Category Payer Medicare [id number] 2007 Medicare [employer] [place] [id number] 2007-Present [phone] [address] [place] [address] HMO [id number] Social History Date Type Detail Facility Start: 10-13-2011 End: 10-20-2022 Tobacco smoking status NHIS Ex-smoker [facility] History of tobacco use Current smoker [facility] History of tobacco use Cigarette Smoker C [facility] Start: 10-13-2011 End: 10-20-2022 Tobacco use and exposure User of smokeless tobacco [facility] History of tobacco use Chews Tobacco [facility] Start: 08-09-2022 End: 09-28-2022 Alcohol intake Current drinker of alcohol (finding) [facility] Start: 08-09-2022 End: 08-28-2022 Alcohol intake [facility] Start: 06-20-2017 Alcohol Comment rarely [facility] Start: 1955 Sex Assigned At Not on file [facility] Start: 09-27-2022 Tobacco Comment snuff 1 can a week [facility] Start: 10-20-2022 End: 11-18-2022 Alcohol intake Ex-drinker (finding) [facility] Start: 10-20-2022 Tobacco Comment One can a week .States only smoked occasionally years ago. [facility] Start: 08-28-2022 End: 11-18-2022 Tobacco use panel [facility] Adult Depression Screening Assessment 0 [facility] Medical Equipment Procedure Code Equipment Code [...] Type Note Facility 09-28-2023 Note HNO ID: [id number] Author: LEROY ALCOCER MD Service: ? Author Type: Physician Type: Progress Notes Filed: 09/28/2023 08:29 Note Text: Called by patient's PCP Dr. Zonia Batista for increasing epigastric symptoms. Patient had prior upper endoscopy before his cholecystectomy which did demonstrate gastritis. Will plan for urgent upper endoscopy. [facility] 09-28-2023 History of Present illness Narrative Called by patient's PCP Dr. Zonia Batista for increasing epigastric symptoms. Patient had prior upper endoscopy before his cholecystectomy which did demonstrate gastritis. Will plan for urgent upper endoscopy. documented in this encounter [facility] 11-18-2022 Note HNO ID: [id number] Author: Edilia Walls PA-C Service: ? Author Type: Physician Physical Director Type: Progress Notes Filed: 11/22/2022 4:57 PM Note Text: FOLLOW UP VISIT - CHOLECYSTECTOMY NAME: Abdirizak Ch [facility] NO.: [id number] DATE OF SERVICE: 11/18/2022 : 1955 REFERRING [...] with me as needed. Edilia Walls PA-C [facility] 11-18-2022 Instructions Edilia Walls PA-C - 11/18/2022 10:01 AM EDT The following instructions are important for you related to your office visit today with the [facility]. INSTRUCTIONS FOLLOWING YOU RECENT GALLBLADDER [...] you should contact our office immediately @ [phone] and ask to be transferred to the General Surgery department. documented in this encounter [facility] 11-18-2022 History of Present illness Narrative FOLLOW UP VISIT - CHOLECYSTECTOMY NAME: Abdirizak Bates [facility] NO.: [id number] DATE OF SERVICE: 11/18/2022 : 1955 REFERRING [...] Edilia Walls PA-C documented in this encounter [facility] 11-18-2022 Nurse Note REVIEW OF SYSTEMS: [...] Clara Lira RN documented in this encounter [facility] 11-14-2022 Miscellaneous Notes Patient was evaluated at [facility] ER, CT scan of the abdomen and pelvis was completed. Diagnosed with back spasm. Carol Vega RN [facility] Alethea stated that she called 911 and ambulance was there. Yes, agree with urgent ED evaluation for severe abdominal pain Patient called back, patient is yelling in pain, advised patient to go to ER. Alethea asked if [facility] would treat patient, informed them yes they will however Dr Alcocer is not at that hospital and is doing surgeries in [place] today. voiced understanding. Alethea # [phone] Abdirizak's , Alethea, called. Abdirizak had laparoscopic [...] of the pain. They use [facility] in [place]. Alethea also wanted us to know that they tried reaching out, over the weekend to the provider number that is on their discharge paperwork, but that number is to [facility] and the filtration operator refused to page Dr. Alcocer, stating that he does not work at their facility. I apologized to Alethea, stating that I would reach out and see who can update that paperwork and correct that error. Carol Vega RN documented in this encounter [facility] 11-11-2022 Note HNO ID: [id number] Author: Joni Crooks RN Service: Nursing Author Type: Registered Nurse Type: Nursing Progress Note Filed: 11/11/2022 12:59 PM Note Text: PT up to bathroom, ambulated with close supervision, tolerated well. Voided q/s returned to bed [facility] 11-11-2022 Note HNO ID: [id number] Author: RONALD Unger Service: Anesthesiology Author Type: Student Type: Anesthesia Procedure Notes Filed: 11/11/2022 10:15 AM Note Text: ANESTHESIOLOGY PROCEDURE NOTE Airway General Information Procedure Start Time/Medication Administration: 11/11/2022 9:53 AM Patient location during procedure: OR Timeout Performed Pre-procedure: timeout performed Consent Obtained: Yes Patient identity confirmed: arm band, care steam hand and patient Staffing Anesthesiologist: Evita Morillo MD [...] November 11, 2022 TIME: 10:14 AM CSN: [id number] [facility] 11-09-2022 Miscellaneous Notes Received last office visit and cardiac testing from [facility]. Copy made for Angela Norris CNP and original sent to [employer]. Araceli Davis LPN Called and spoke with Katerina at [facility], she will fax last office visit and cardiac records. Araceli Davis LPN Received labs from Dr. Yousif's office. Copy made for Angela Norris CNP and original sent to [facility] through [employer]. Araceli Davis LPN Received a call from [facility] stating Dr. Mckeon office has moved and new phone number is [phone]. I called Dr. Mckeon new office and spoke with Katrina. Requested labs especially A1c to be faxed, fax number given. Araceli Davis LPN Called and left message at Dr. Mathews office requesting patients most recent labs especially A1c to be faxed. Callback number and fax number given. Araceli Davis LPN Called and left message with Katerina at [facility] to return call. Callback number given. Araceli Davis LPN Please request most recent labs, especially A1c from PCP's office. And cardiac records, last OV from [facility]. DOS 11/11/2022 documented in this encounter [facility] 11-04-2022 History and physical note HISTORY [...] because of gallstones. 10/20/2022, Dr. Alcocer HPI: Abdirizka is a 67 year old male with [...] fevers. Neurological: No history of TIA's, stroke, PRINCIPAL ACCOUNTS CLERK tumor, impaired sensorium, hemiplegia, paraplegia or quadraplegia. No neurological symptoms or problems. Respiratory: Positive for: asthma and COPD. Negative for: pneumonia within 6 weeks, tobacco use, URI < 2 weeks and obstructive sleep apnea. Cardiovascular: Positive for: anticoagulation therapy (ASA), CAD, hyperlipidemia (on rx) and open heart surgery Negative for: arrhythmia, atrial fibrillation, chest pain, CHF, congenital heart defect, DVT/PE, hypertension, recent [place], murmur/valvular heart disease, PVD and valve surgery. [...] for: joint pain. Skin: +rosacea, following [facility] PAST MEDICAL HISTORY Diagnosis Date Asthma CAD [...] 06/16/2017 Added automatically from request for surgery [id number] Impaired fasting glucose 07/15/2016 Myalgia and myositis, [...] A1C Date Value 04/09/2019 Test sent to [facility]. % 11/05/2018 Test sent to [facility]. % 06/28/2018 Test sent to [facility]. % 07/17/2017 Test sent to [facility]. % 06/23/2016 Test sent to [facility]. % 06/23/2016 6.1 No results found for this or any previous visit (from the past 8760 hour(s)). No results found for this or any previous visit (from the past 27430 hour(s)). Assessment Patient has the following medical conditions which may affect nereida-operative course: Other hyperlipidemia Assessment: c/w statin CAD (coronary artery disease) Assessment: CABG x3, 2011, following [facility], daily ASA, denies CP, palpitations or [...] equal to 35 kg/m^2 STOP-Bang Score: 4 [id number] Score: Age: 65-74 Sex: male CHF history: No Hypertension history: Yes Stroke/TIA/thromboembolism history: No Vascular disease history: Yes Diabetes history: Yes [id number] Score: 4 ARISCAT Score: Age: 51-80 Preoperative [...] additional comments: *PACC/TCI - anesthesia choice. Beta Ovn Monitoring Plan Post Procedure Analgesic Plan Informed [...] AM PAGER/CONTACT #: documented in this encounter [facility] 11-04-2022 Instructions Angela Norris APRN.CNP - 11/04/2022 11:12 AM EDT PATIENT PREOPERATIVE INSTRUCTIONS No ref. provider found has scheduled you for your procedure at this surgery center: [facility]: [phone] -- [address] [facility] [address]. Please read below carefully for your personalized [...] Procedures: - YOU MUST HAVE A RESPONSIBLE LINK MACHINE OPERATOR TAKE YOU HOME. A DATA ANALYTICS DEVELOPER OR PRODUCT MANUFACTURING PROFESSIONAL CANNOT BE MADE A RESPONSIBLE LINK MACHINE OPERATOR. - We recommend that a responsible person [...] Advance Directive, please fax a copy to [phone] or email to for it to be [...] Angela Norris APRN.CNP documented in this encounter [facility] 10-21-2022 Note HNO ID: [id number] Author: Leroy Alcocer MD Service: ? Author [...] 06/16/2017 Added automatically from request for surgery [id number] Impaired fasting glucose 07/15/2016 Myalgia and myositis, [...] YRS/> REDUCIBLE 2 (more content not included)... [facility] 10-21-2022 History of Present illness Narrative [...] 06/16/2017 Added automatically from request for surgery [id number] Impaired fasting glucose 07/15/2016 Myalgia and myositis, [...] Procedure: LAPAROSCOPIC CHOLECYSTECTOMY WITH INTRAOPERATIVE CHOLEANGIOGRAM - [id number] Planned antibiotic: Ancef 2gm IVPB neon pumper to OR SCDs needed - Yes Physical Director Needed - No Diagnoses: (K80.20) Calculus of gallbladder without cholecystitis without obstruction (primary encounter diagnosis) (R10.11) RUQ pain My findings have been communicated to via shared medical record. This note will be forwarded to No primary care provider on file.. Leroy Alcocer MD documented in this encounter [facility] 10-20-2022 Miscellaneous Notes Called and spoke to [facility], CT scan dept. Pushed image per Dr Alcocer request. Lilliam Cota LPN documented in this encounter [facility] 10-07-2022 Note HNO ID: [id number] Author: Edilia Walls PA-C Service: ? Author Type: Physician Physical Director Type: Progress Notes Filed: 10/13/2022 2:07 PM Note Text: FOLLOW UP VISIT - ENDOSCOPY NAME: Abdirizak Bates [facility] NO.: [id number] DATE OF SERVICE: 10/07/2022 : 1955 REFERRING [...] which included preparing to see the patient, [id number] patient care, completing clinical documentation, obtaining and/or reviewing separately obtained history, counseling and educating the patient/family/caregiver, independently interpreting results (not separately reported), and communicating results to the patient/family/caregiver. Edilia Walls PA-C [facility] 10-07-2022 Instructions Edilia Walls PA-C - [...] to your office visit today with the [facility]. INSTRUCTIONS FOLLOWING A NORMAL COLONOSCOPY [...] you should contact our office immediately @ [phone] and ask to be transferred to the General Surgery department. documented in this encounter [facility] 10-07-2022 History of Present illness Narrative FOLLOW UP VISIT - ENDOSCOPY NAME: Abdirizak Bates [facility] NO.: [id number] DATE OF SERVICE: 10/07/2022 : 1955 REFERRING [...] which included preparing to see the patient, [id number] patient care, completing clinical documentation, obtaining and/or reviewing separately obtained history, counseling and educating the patient/family/caregiver, independently interpreting results (not separately reported), and communicating results to the patient/family/caregiver. Edilia Walls PA-C documented in this encounter [facility] 09-27-2022 Nurse Note Oxygen applied at [...] on left side. documented in this encounter [facility] 09-27-2022 History and physical note UPDATED [...] were not included. HISTORY AND PHYSICAL Abdirizak Baets 1955 REFERRING PHYSICIAN: Edilia Walls PA-C CHIEF [...] 06/16/2017 Added automatically from request for surgery [id number] Impaired fasting glucose 07/15/2016 Myalgia and myositis, [...] 1 distal transverse COLONOSCOP W/ OR W/O [facility] SPEC 07/06/10 Normal COLONOSCOP W/ OR W/O [facility] SPEC 06/20/2017 Colonoscopy EGD W/O [facility] SPECIMEN W/BX 07/06/10 gastritis EGD W/O BRS [...] patient was offered a surgery/procedure at a [facility] facility. I have counseled the patient [...] which included preparing to see the patient, [id number] patient care, completing clinical documentation, obtaining and/or [...] 06/16/2017 Added automatically from request for surgery [id number] Impaired fasting glucose 07/15/2016 Myalgia and myositis, [...] entered by the nurse and reviewed by ct Nursing Notes: Mel Alonso LPN 08/09/2022 1:45 [...] patient was offered a surgery/procedure at a [facility] facility. I have counseled the patient [...] which included preparing to see the patient, [id number] patient care, completing clinical documentation, obtaining and/or reviewing separately obtained history, performing a medically appropriate examination, and care coordination (not separately reported). Edilia Walls PA-C documented in this encounter [facility] 09-16-2022 Miscellaneous Notes EGD added to procedure [facility] [employer]ist Pt calling to inform that Dr. Yousif had ordered EGD for pt. There is an order in [employer] from [facility]. Pt asking if that can be done the same day as the colonoscopy. Please contact patient to confirm date. Aspen Sainz documented in this encounter [facility] 09-16-2022 Miscellaneous Notes Called by patient's PCP Dr. Batista who also is having upper symptoms will add EGD and perform orosco biopsies. 09/27/2022 COLON ASC documented in this encounter [facility] 08-09-2022 Nurse Note REVIEW OF SYSTEMS: [...] Mel Alonso LPN documented in this encounter [facility] 08-09-2022 History of Present illness Narrative [...] 06/16/2017 Added automatically from request for surgery [id number] Impaired fasting glucose 07/15/2016 Myalgia and myositis, [...] 1 distal transverse COLONOSCOP W/ OR W/O [facility] SPEC 07/06/10 Normal COLONOSCOP W/ OR W/O [facility] SPEC 06/20/2017 Colonoscopy EGD W/O [facility] SPECIMEN W/BX 07/06/10 gastritis EGD W/O [facility] SPECIMEN W/BX 10/07/14 duodenitis, gastritis, esophagitis EGD W/O [facility] SPECIMEN W/BX 09/13/2016 continued inflammation HEMORRHOIDECT [...] entered by the nurse and reviewed by ct Nursing Notes: Mel AlonsoTORI 08/09/2022 1:45 PM [...] patient was offered a surgery/procedure at a [facility] facility. I have counseled the patient [...] which included preparing to see the patient, [id number] patient care, completing clinical documentation, obtaining and/or reviewing separately obtained history, performing a medically appropriate examination, and care coordination (not separately reported). Edilia Walls PA-C documented in this encounter [facility] documented as of this encounter (statuses as of 08/18/2022) [facility]2017 History of Past illness Narrative* Problem Noted Date Resolved Date Hemorrhoids, internal 06/16/2017 01/15/2018 Overview: Added automatically from request for surgery [id number] Bright red rectal bleeding 06/16/201707/17 Overview: Added automatically from request for surgery [id number] History of colonic polyps 06/16/20172016 Overview: Added automatically from request for surgery [id number] Calculus of gallbladder with out cholecystitis without [...] Laboratory test 07/16/2012 11/04/2014 Overview: PSA done [facility] 07/06/2012 - 0.89 Pain in joint, shoulder region 04/06/2012 0 04/12/2016 GERD (gastroesophageal reflux disease) 0 07/17/2017 Diabetes mellitus 06/25/2010 09/04/2012 Headache(784.0) 10/30/2007 01/15/2018 Dysthymic disorder 07/17/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) Other malaise and fatigue 2015 Other specified disease of hair and hair follicl es 11/04/2014 documented as of this encounter (statuses as of 09/16/2022) [facility] History of Past illness Narrative* Problem Noted Date Resolved Date Hemorrhoids, internal 06/16/2017 01/15/2018 Overview: Added automatically from request for surgery [id number] Bright red rectal bleeding 06/16/201707/17 Overview: Added automatically from request for surgery [id number] History of colonic polyps 06/16/20172016 Overview: Added automatically from request for surgery [id number] Calculus of gallbladder with out cholecystitis without [...] Laboratory test 07/16/2012 11/04/2014 Overview: PSA done [facility] 07/06/2012 - 0.89 Pain in joint, shoulder region 04/06/2012 0 04/12/2016 GERD (gastroesophageal reflux disease) 0 07/17/2017 Diabetes mellitus 06/25/2010 09/04/2012 Headache(784.0) 10/30/2007 01/15/2018 Dysthymic disorder 07/17/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) Other malaise and fatigue 2015 Other specified disease of hair and hair follicl es 11/04/2014 documented as of this encounter (statuses as of 09/16/2022) [facility] History of Past illness Narrative* Problem Noted Date Resolved Date Hemorrhoids, internal 06/16/2017 01/15/2018 Overview: Added automatically from request for surgery [id number] Bright red rectal bleeding 06/16/201707/17 Overview: Added automatically from request for surgery [id number] History of colonic polyps 06/16/20172016 Overview: Added automatically from request for surgery [id number] Calculus of gallbladder with out cholecystitis without [...] Laboratory test 07/16/2012 11/04/2014 Overview: PSA done [facility] 07/06/2012 - 0.89 Pain in joint, shoulder region 04/06/2012 0 04/12/2016 GERD (gastroesophageal reflux disease) 0 07/17/2017 Diabetes mellitus 06/25/2010 09/04/2012 Headache(784.0) 10/30/2007 01/15/2018 Dysthymic disorder 07/17/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) Other malaise and fatigue 2015 Other specified disease of hair and hair follicl es 11/04/2014 documented as of this encounter (statuses as of 10/13/2022) [facility] History of Past illness Narrative* Problem Noted Date Resolved Date Hemorrhoids, internal 06/16/2017 01/15/2018 Overview: Added automatically from request for surgery [id number] Bright red rectal bleeding 06/16/201707/17 Overview: Added automatically from request for surgery [id number] History of colonic polyps 06/16/20172016 Overview: Added automatically from request for surgery [id number] Calculus of gallbladder with out cholecystitis without [...] Laboratory test 07/16/2012 11/04/2014 Overview: PSA done [facility] 07/06/2012 - 0.89 Pain in joint, shoulder region 04/06/2012 0 04/12/2016 GERD (gastroesophageal reflux disease) 0 07/17/2017 Diabetes mellitus 06/25/2010 09/04/2012 Headache(784.0) 10/30/2007 01/15/2018 Dysthymic disorder 07/17/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) Other malaise and fatigue 2015 Other specified disease of hair and hair follicl es 11/04/2014 documented as of this encounter (statuses as of 10/20/2022) [facility] History of Past illness Narrative* Problem Noted Date Resolved Date Hemorrhoids, internal 06/16/2017 01/15/2018 Overview: Added automatically from request for surgery [id number] Bright red rectal bleeding 06/16/201707/17 Overview: Added automatically from request for surgery [id number] History of colonic polyps 06/16/20172016 Overview: Added automatically from request for surgery [id number] Calculus of gallbladder with out cholecystitis without [...] Laboratory test 07/16/2012 11/04/2014 Overview: PSA done [facility] 07/06/2012 - 0.89 Pain in joint, shoulder region 04/06/2012 0 04/12/2016 GERD (gastroesophageal reflux disease) 0 07/17/2017 Diabetes mellitus 06/25/2010 09/04/2012 Headache(784.0) 10/30/2007 01/15/2018 Dysthymic disorder 07/17/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) Other malaise and fatigue 2015 Other specified disease of hair and hair follicl es 11/04/2014 documented as of this encounter (statuses as of 10/26/2022) [facility] History of Past illness Narrative* Problem Noted Date Resolved Date Hemorrhoids, internal 06/16/2017 01/15/2018 Overview: Added automatically from request for surgery [id number] Bright red rectal bleeding 06/16/201707/17 Overview: Added automatically from request for surgery [id number] History of colonic polyps 06/16/20172016 Overview: Added automatically from request for surgery [id number] Calculus of gallbladder with out cholecystitis without [...] Laboratory test 07/16/2012 11/04/2014 Overview: PSA done [facility] 07/06/2012 - 0.89 Pain in joint, shoulder region 04/06/2012 0 04/12/2016 GERD (gastroesophageal reflux disease) 0 07/17/2017 Diabetes mellitus 06/25/2010 09/04/2012 Headache(784.0) 10/30/2007 01/15/2018 Dysthymic disorder 07/17/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) Other malaise and fatigue 2015 Other specified disease of hair and hair follicl es 11/04/2014 documented as of this encounter (statuses as of 11/09/2022) [facility] History of Past illness Narrative* Problem Noted Date Resolved Date Hemorrhoids, internal 06/16/2017 01/15/2018 Overview: Added automatically from request for surgery [id number] Bright red rectal bleeding 06/16/201707/17 Overview: Added automatically from request for surgery [id number] History of colonic polyps 06/16/20172016 Overview: Added automatically from request for surgery [id number] Calculus of gallbladder with out cholecystitis without [...] Laboratory test 07/16/2012 11/04/2014 Overview: PSA done [facility] 07/06/2012 - 0.89 Pain in joint, shoulder region 04/06/2012 0 04/12/2016 GERD (gastroesophageal reflux disease) 0 07/17/2017 Diabetes mellitus 06/25/2010 09/04/2012 Headache(784.0) 10/30/2007 01/15/2018 Dysthymic disorder 07/17/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) Other malaise and fatigue 2015 Other specified disease of hair and hair follicl es 11/04/2014 documented as of this encounter (statuses as of 11/09/2022) [facility] History of Past illness Narrative* Problem Noted Date Resolved Date Hemorrhoids, internal 06/16/2017 01/15/2018 Overview: Added automatically from request for surgery [id number] Bright red rectal bleeding 06/16/201707/17 Overview: Added automatically from request for surgery [id number] History of colonic polyps 06/16/20172016 Overview: Added automatically from request for surgery [id number] Calculus of gallbladder with out cholecystitis without [...] Laboratory test 07/16/2012 11/04/2014 Overview: PSA done [facility] 07/06/2012 - 0.89 Pain in joint, shoulder region 04/06/2012 0 04/12/2016 GERD (gastroesophageal reflux disease) 0 07/17/2017 Diabetes mellitus 06/25/2010 09/04/2012 Headache(784.0) 10/30/2007 01/15/2018 Dysthymic disorder 07/17/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) Other malaise and fatigue 2015 Other specified disease of hair and hair follicl es 11/04/2014 documented as of this encounter (statuses as of 11/18/2022) [facility] History of Past illness Narrative* Problem Noted Date Resolved Date Hemorrhoids, internal 06/16/2017 01/15/2018 Overview: Added automatically from request for surgery [id number] Bright red rectal bleeding 06/16/201707/17 Overview: Added automatically from request for surgery [id number] History of colonic polyps 06/16/20172016 Overview: Added automatically from request for surgery [id number] Calculus of gallbladder with out cholecystitis without [...] Laboratory test 07/16/2012 11/04/2014 Overview: PSA done [facility] 07/06/2012 - 0.89 Pain in joint, shoulder region 04/06/2012 0 04/12/2016 GERD (gastroesophageal reflux disease) 0 07/17/2017 Diabetes mellitus 06/25/2010 09/04/2012 Headache(784.0) 10/30/2007 01/15/2018 Dysthymic disorder 07/17/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) Other malaise and fatigue 2015 Other specified disease of hair and hair follicl es 11/04/2014 documented as of this encounter (statuses as of 11/23/2022) [facility] History of Past illness Narrative* Problem Noted Date Diagnosed Date Resolved Date Hemorrhoids, internal 06/16/2017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: Added automatically from request for surgery [id number] Bright red rectal bleeding 06/16/2017 1 09/17/2016 Overview: Added automatically from request for surgery [id number] History of colonic polyps 06/16/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: Added automatically from request for surgery [id number] Calculus of gallbladder with out cholecystitis without [...] Laboratory test 07/16/2012 11/04/2014 Overview: PSA done [facility] 07/06/2012 - 0.89 Pain in joint, shoulder region 04/06/2012 04/12/2016 GERD (gastroesophageal reflux disease) 06/28/2010 07/17/2017 Diabetes mellitus 06/25/2010 09/04/2012 Headache(784.0) 10/30/2007 01/15/2018 Dysthymic disorder 7 Overview: Depression (non-psychotic) Other malaise and fatigue Other specified disease of h air and hair follicles 11/04/2014 documented as of this encounter (statuses as of 04/19/2023) [facility] History of Past illness Narrative* Problem Noted Date Diagnosed Date Resolved Date Hemorrhoids, internal 06/16/2017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: Added automatically from request for surgery [id number] Bright red rectal bleeding 06/16/2017 1 09/17/2016 Overview: Added automatically from request for surgery [id number] History of colonic polyps 06/16/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: Added automatically from request for surgery [id number] Calculus of gallbladder with out cholecystitis without [...] Laboratory test 07/16/2012 11/04/2014 Overview: PSA done [facility] 07/06/2012 - 0.89 Pain in joint, shoulder region 04/06/2012 04/12/2016 GERD (gastroesophageal reflux disease) 06/28/2010 07/17/2017 Diabetes mellitus 06/25/2010 09/04/2012 Headache(784.0) 10/30/2007 01/15/2018 Dysthymic disorder 7 Overview: Depression (non-psychotic) Other malaise and fatigue Other specified disease of h air and hair follicles 11/04/2014 documented as of this encounter (statuses as of 06/18/2023) [facility] History of Past illness Narrative* Problem Noted Date Diagnosed Date Resolved Date Hemorrhoids, internal 06/16/2017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: Added automatically from request for surgery [id number] Bright red rectal bleeding 06/16/2017 1 09/17/2016 Overview: Added automatically from request for surgery [id number] History of colonic polyps 06/16/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: Added automatically from request for surgery [id number] Calculus of gallbladder with out cholecystitis without [...] Laboratory test 07/16/2012 11/04/2014 Overview: PSA done [facility] 07/06/2012 - 0.89 Pain in joint, shoulder region 04/06/2012 04/12/2016 GERD (gastroesophageal reflux disease) 06/28/2010 07/17/2017 Diabetes mellitus 06/25/2010 09/04/2012 Headache(784.0) 10/30/2007 01/15/2018 Dysthymic disorder 7 Overview: Depression (non-psychotic) Other malaise and fatigue Other specified disease of h air and hair follicles 11/04/2014 documented as of this encounter (statuses as of 09/28/2023) [facility] Encounter for screening for malignant neoplasm of colon- Primary Special screening for malignant neoplasms, colon Personal history of colonic polyps documented in this encounter [facility] note* Diagnosis History of colonic polyps- Primary Personal history of colonic polyps Epigastric pain Abdominal pain, epigastric documented in this encounter [facility] note* Diagnosis Diverticulosis- Primary Diverticulosis of colon (without mention of hemorrhage) History of colonic polyps Personal history of colonic polyps Gastritis and duodenitis Unspecified gastritis and gastroduodenitis without mention of hemorrhage documented in this encounter [facility] note* Diagnosis Calculus of gallbladder without cholecystitis without obstruction- Primary Calculus of gallbladder without mention of cholecystitis or obstruction RUQ pain Abdominal pain, right upper quadrant documented in this encounter [facility] note* Diagnosis Pre-operative examination- Primary Preoperative examination, unspecified Other hyperlipidemia Coronary artery disease involving [place] coronary artery of [place] heart without angina 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 documented in this encounter [facility] note* Diagnosis Calculus of gallbladder with chronic cholecystitis without obstruction- Primary Calculus of gallbladder with other cholecystitis, without mention of obstruction Back spasm Other symptoms referable to back documented in this encounter [facility] note* Diagnosis Gastroesophageal reflux disease with esophagitis, unspecified whether hemorrhage- Primary Constipation, unspecified constipation type History of colonic polyps Personal history of colonic polyps Epigastric pain Abdominal pain, epigastric documented in this encounter [facility] note* Diagnosis Epigastric pain- Primary Abdominal pain, epigastric documented in this encounter [facility] for referral (narrative)* Outpatient Procedure (Routine) - Pending Review Specialty Diagnoses / Procedures Referred By Jeffrey jacob Referred To Contact [facility] Diagnoses Epigastric pain Procedures EGD DIAGNOSTIC ESOPHAGOGASTRODUODENOSC OPY TRANSORAL DIAGNOSTIC Leroy Alcocer MD [address] [place] [address] [facility] [address] [place] [address] Referral ID Status Reason Start Date Expiration Date Visits Requested Visits Authorized [id number] Pending Review Auto-Generat ed Referral 09/16/2022 09/16/2023 1 1 * Outpatient Procedure (Routine) - Authorized Specialty Diagnoses / Procedures Referred By Jeffrey jacob Referred To Contact [facility] Diagnoses History of colonic polyps Procedures COLONOSCOPY SCREENING COLONOSCOPY FLX DX W/COLLJ SPEC WHEN PFRMD Edilia Walls PA-C [address] [place] [address] [address] Referral ID Status Reason Start Date Expiration Date Visits Requested Visits Authorized [id number] Authorized Auto-Generat ed Referral 08/09/2023 1 1 [facility] for referral (narrative)* Outpatient Procedure (Routine) - Closed Specialty Diagnoses / Procedures Referred By Jeffrey jacob Referred To Contact [facility] Diagnoses Epigastric pain Procedures EGD DIAGNOSTIC ESOPHAGOGASTRODUODENOSC OPY TRANSORAL DIAGNOSTIC Leroy Alcocer MD [address] [place] [address] [facility] [address] [address] Referral ID Status Reason Start Date Expiration Date V isits Requested Visits Authorized [id number] Closed Auto-Generate d Referral 09/16/2022 09/16/2023 1 1 * Outpatient Procedure (Routine) - Closed Specialty Diagnoses / Procedures Referred By Jeffrey jacob Referred To Contact [facility] Diagnoses History of colonic polyps Procedures COLONOSCOPY SCREENING COLONOSCOPY FLX DX W/COLLJ SPEC WHEN PFRMD Edilia Walls PA-C [address] [place] [address] [address] Referral ID Status Reason Start Date Expiration Date V isits Requested Visits Authorized [id number] Closed Auto-Generate d Referral 08/09/2022 08/09/2023 1 1 [facility] for referral (narrative)* Outpatient Procedure (Routine) - Authorized Specialty Diagnoses / Procedures Referred By Jeffrey jacob Referred To Contact [facility] Diagnoses Epigastric pain Procedures EGD DIAGNOSTIC ESOPHAGOGASTRODUODENOS COPY TRANSORAL DIAGNOSTIC Leroy Alcocer MD [address] [address] Referral ID Status Reason Start Date Expiration Date Visits Requested Visits Authorized [id number] Authorized Auto-Generat ed Referral 09/28/2023 09/28/2024 1 1 [facility] for visit Narrative* Outpatient Procedure (Routine) - Closed Specialty Diagnoses / Procedures Referred By Jeffrey jacob Referred To Contact [facility] Diagnoses Epigastric pain Procedures EGD DIAGNOSTIC ESOPHAGOGASTRODUODENOSC OPY TRANSORAL DIAGNOSTIC Leroy Alcocer MD [address] [place] [address] [address] Referral ID Status Reason Start Date Expiration Date V isits Requested Visits Authorized [id number] Closed Auto-Generate d Referral 09/16/2022 09/16/2023 1 1 [facility] Summary Purpose Family History No Family [...] Date Dose Rate Site benzocaine 20% 1 [place] (TOPEX) 1 [place], TOPICAL, DIRECTED, Starting on Mon09/27/22 at 1000, [...] DATE CREATED AUTHOR AUTHOR'S ORGANIZ ATION 02/05/2018 [facility] DATE CREATED AUTHOR AUTHOR'S ORGANIZ ATION 11/16/[address] [facility] DATE CREATED AUTHOR AUTHOR'S ORGANIZ ATION 09/29/[address] [facility] Source Comments (unrecognize d section and content) In the event this informatio n is protected by the Federal Confidentiality of Alcohol and Drug Abuse Patient Records regulations: The Federal rules restrict any use of the information to criminally investigate or prosecute any alcohol or drug abuse patient.[facility] the event this information is protected by the Federal Confidentiality of Alcohol and Drug Abuse Patient Records regulations: The Federal rules restrict any use of the information to criminally investigate or prosecute any alcohol or drug abuse patient.[facility] the event this information is protected by the Federal Confidentiality of Alcohol and Drug Abuse Patient Records regulations: The Federal rules restrict any use of the information to criminally investigate or prosecute any alcohol or drug abuse patient.[facility] the event this information is protected by the Federal Confidentiality of Alcohol and Drug Abuse Patient Records regulations: The Federal rules restrict any use of the information to criminally investigate or prosecute any alcohol or drug abuse patient.[facility] the event this information is protected by the Federal Confidentiality of Alcohol and Drug Abuse Patient Records regulations: The Federal rules restrict any use of the information to criminally investigate or prosecute any alcohol or drug abuse patient.[facility] the event this information is protected by the Federal Confidentiality of Alcohol and Drug Abuse Patient Records regulations: The Federal rules restrict any use of the information to criminally investigate or prosecute any alcohol or drug abuse patient.[facility] the event this information is protected by the Federal Confidentiality of Alcohol and Drug Abuse Patient Records regulations: The Federal rules restrict any use of the information to criminally investigate or prosecute any alcohol or drug abuse patient.[facility] Hospital[facility] the event this information is protected by the Federal Confidentiality of Alcohol and Drug Abuse Patient Records regulations: The Federal rules restrict any use of the information to criminally investigate or prosecute any alcohol or drug abuse patient.[facility] Hospital[facility] the event this information is protected by the Federal Confidentiality of Alcohol and Drug Abuse Patient Records regulations: The Federal rules restrict any use of the information to criminally investigate or prosecute any alcohol or drug abuse patient.[facility] Hospital[facility] the event this information is protected by the Federal Confidentiality of Alcohol and Drug Abuse Patient Records regulations: The Federal rules restrict any use of the information to criminally investigate or prosecute any alcohol or drug abuse patient.[facility] Hospital[facility] the event this information is protected by the Federal Confidentiality of Alcohol and Drug Abuse Patient Records regulations: The Federal rules restrict any use of the information to criminally investigate or prosecute any alcohol or drug abuse patient.[facility] Hospital[facility] the event this information is protected by the Federal Confidentiality of Alcohol and Drug Abuse Patient Records regulations: The Federal rules restrict any use of the information to criminally investigate or prosecute any alcohol or drug abuse patient.[facility] HospitalIn the event this information is protected by the Federal Confidentiality of Alcohol and Drug Abuse Patient Records regulations: The Federal rules restrict any use of the information to criminally investigate or prosecute any alcohol or drug abuse patient.[facility] Reason for Visit (unrecogniz ed section and content) Reason Comments 09/27/2022 colon asc Patient Update Reason Comments Add EGD Reason Comments Follow Up colonoscopy Reason Comments Results CT scan from [facility] Reason Comments Abdominal Pain Reason Comments Consult Reason Comments Request Outside Medical Records Reason Comments Post op complications Reason Comments Post Op Lap walt Reason Onset Date Comments Refill Request 04/18/2023 Care Teams (unrecognized sec tion and content) [employer] Super[employer] Relationship Specialty Start Date End Date Marshall Yousif MD [address] [place] [address] PCP - General Internal Medicine 10/31/22 [employer] Supervisor Relationship Specialty Start Date End Date Marshall Yousif MD [address] [place] [address] PCP - General Internal Medicine 10/31/22 [employer] Supervisor Relationship Specialty Start Date End Date Marshall Yousif MD [address] [place] [address] PCP - General Internal Medicine 10/31/22 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 [facility]. provides no warranty or guarantee of the accuracy or completeness of information in this document.
== END | disposition home or self-care (01) ==
PROVIDERS: PCP Internal Medicine; Referring Provider Internal Medicine; Visit Provider Internal Medicine
DX: R10.13 Epigastric pain (principal)
CPT/HCPCS: 93975

== ENCOUNTER → 2023-10-11 | Outpatient (CLI) | payer MEDICARE, SELFPAY ==
--- NOTE | 2023-10-11 08:44 | IMM_PTH ---
PATHOLOGY RESULTS PATIENT: JARET FIGUEROA LOC: [facility] U#:[id number] AGE/SX: 68/M ROOM: RE10/11/[address]: Dr. Ben Marshall MD : 1955 BED: DIS: 10/11/2023 SPEC #: [id number] RECD: 10/12/23 14:04 STATUS: CHYNA RECarlos #: [id number] ZANE: 10/11/23 08:[address]: Ben Marshall DEPT: IMMUNOHISTOCHEMISTRY RECD BY: Kathy Shah ENTERED: 10/12/23 14:05 SP TYPE: IMMUNO OTHR DR: Dr. Marlen Bear MD Tissues: Stomach, NOS Procedures: H Pylori (initial) PHYSICIAN & INSTITUTION [place] [address] SPECIMEN INFORMATION: Tissue Source: B - Antral biopsy Clinical Info: Epigastric pain Specimen Number: [id number] CPT code: 62782 METHODOLOGY: Deparaffinized sections of prefer/formalin-fixed tissue or PAP/DQ stained slides are incubated with monoclonal/polyclonal antibodies/oligonucleotide probes. Localization is made via biotin free immunoperoxidase method. Appropriate controls are performed and reacted as expected. Results on target cell population are indicated in the following table: RESULTS: ANTIBODY / CLONE RESULT Block B H Pylori (polyclonal) negative These tests were developed and their performance characteristics determined by [facility]. They may not have been cleared or approved by the U.S. Food and Drug Administration. The FDA has determined that such clearance or approval is not necessary. The above immunohistochemical/dualISH markers are ordered and reviewed by the Pathologist. INTERPRETATION: B. Antral biopsy: Negative for Helicobacter pylori organisms. AM:lucita 10/13/2023
--- NOTE | 2023-10-12 | GASB_PTH ---
PATHOLOGY RESULTS PATIENT: [id number] AGE/SX: 68/M ROOM: RE10/11/[address]: Dr. Ben Marshall MD : 1955 BED: DIS: 10/11/2023 SPEC #: [id number] RECD: 10/12/23 08:54 STATUS: CHYNA RECarlos #: [id number] ZANE: 10/12/23 00:[address]: Ben Marshall DEPT: SURGICAL PATHOLOGY RECD BY: Kyaw Oleary ENTERED: 10/12/23 08:56 SP TYPE: Gastric Bx OTHR DR: Dr. Marlen Bear MD Tissues: Duodenum, NOS Gastric mucous membrane Esophageal mucous membrane Esophageal mucous membrane Procedures: Special Stain Group II Surgery Specimen Level IV Alcian Blue/PAS (control) HEADER OPERATION: EGD PRE-OP DIAGNOSIS: Epigastric pain TISSUE SUBMITTED: A - Duodenum biopsy, B - Antral biopsy for H. pylori, C - Distal esophagus biopsy, D - Mid esophagus biopsy MICROSCOPIC DIAGNOSIS A. Duodenum, biopsy: No pathologic change. B. Gastric antrum, biopsy: Mild chronic gastritis. See comment. C. Distal esophagus, biopsy: Minimal chronic inflammation. No evidence of goblet cell metaplasia. See comment. D. Mid esophagus, biopsy: Fragments of benign squamous mucosa. No evidence of inflammation. AM:lucita 10/13/2023 COMMENT B. The results of immunohistochemistry for Helicobacter pylori will be reported separately ([id number]). C. Alcian blue/PAS stain with matched control supports the above diagnosis. The specimen primarily consists of squamous mucosa. Clinical correlation is suggested. MICROSCOPIC DESCRIPTION Slides are reviewed. GROSS DESCRIPTION A - Received in fixative is one container labeled with the patient's name and designated duodenum biopsy. The specimen consists of one irregular fragment of light meredith soft tissue that measures 0.5 x 0.5 x 0.1 cm. The specimen is totally submitted in one cassette. B - Received in fixative is one container labeled with the patient's name and designated antral biopsy. The specimen consists of one irregular fragment of light meredith soft tissue that measures 0.5 x 0.5 x 0.1 cm. The specimen is totally submitted in one cassette. C - Received in fixative is one container labeled with the patient's name and designated distal esophagus biopsy. The specimen consists of one irregular fragment of light meredith soft tissue that measures 0.5 x 0.5 x 0.1 cm. The specimen is totally submitted in one cassette. D - Received in fixative is one container labeled with the patient's name and designated mid esophagus biopsy. The specimen consists of one irregular fragment of light meredith soft tissue that measures 0.3 x 0.3 x 0.1 cm. The specimen is totally submitted in one cassette. / AM:lucita 10/12/2023 TC:3 CPT: 78488 x4, 62742
== END | disposition home or self-care (01) ==
LOC: LABSPEC 15:42
PROVIDERS: PCP Internal Medicine; Referring Provider Surgery; Visit Provider Surgery
DX: K29.50 Unspecified chronic gastritis without bleeding (principal); K20.90 Esophagitis, unspecified without bleeding
CPT/HCPCS: 88305; 88313; 88342

== ENCOUNTER 2023-10-21 17:17 | Inpatient (IN) | payer MEDICARE, SELFPAY ==
[2023-10-21] VITALS (7 sets, daily range): BP systolic 121–136; BP diastolic 72–86; PULSE 77–82; RESP 15–21; TEMP 36.4–37.1; O2SAT 95–98; BMI 27.1; BMI 26.1
--- NOTE | 2023-10-21 17:18 | EKG12_ITS ---
Test Reason : STROKE Blood Pressure : / mmHG Vent. Rate : 081 BPM Atrial Rate : 081 BPM P-R Int : 160 ms QRS Dur : 108 ms QT Int : 374 ms P-R-T Axes : 028 005 041 degrees QTc Int : 434 ms Normal sinus rhythm Normal ECG Confirmed by Jefferson Morrow ([id number]), features editor ROSALIE FERRO ([id number]) on 10/24/2023 7:28:56 AM Referred By: Confirmed By:Jefferson Morrow
--- NOTE | 2023-10-21 17:19 | CT_ITS ---
We are attempting to reach an attending provider to discuss findings. An addendum with communication details will be sent when the communication is complete. INDICATION: Neuro deficit, acute, stroke suspected EXAMINATION: CT BRAIN - CT Head Stroke Protocol W/O Contrast Injection TECHNIQUE: Multiple axial images were obtained of the head without intravenous contrast. A radiation dose optimization technique was used for this scan. IV Contrast dosage and agent: None. COMPARISON: 08/14/2023 FINDINGS: There is no definite acute abnormality. There is diffuse mild symmetric atrophy. There is atrophy of the posterior fossa structures. There is diffuse small vessel ischemic disease of the white matter. There are stable bilateral lacunar infarcts. There is no definite acute infarct. There is no bleed. There is no gross mass, mass effect, or midline shift. There is no acute abnormality of the skull. No fractures. Grossly normal orbits. Grossly normal sinuses. CT/STROKE Brain/Head without Cont IMPRESSION: Chronic age related changes and atrophy. No acute abnormality or significant change. Electronically Signed: Toribio Giraldo MD at 17:34 EST ,
--- NOTE | 2023-10-21 17:19 | CT_ITS ---
We are attempting to reach an attending provider to discuss findings. An addendum with communication details will be sent when the communication is complete. STUDY: CTA HEAD AND NECK WITH CONTRAST REASON FOR EXAM: Male, 68 years old. Neuro deficit, acute, stroke suspected RADIATION DOSAGE (If Supplied By Facility): CTDIvol = ( 21.49 ) mGy, DLP = ( 678.29 ) mGycm TECHNIQUE: CT angiography was performed with a multi-detector CT scanner. Data acquisition was obtained from the skull base through the vertex following intravenous administration of IV 100mL Isovue-370. MIP images were reconstructed from the axial data set. Post-processing of the angiographic images was performed, with multiplanar reformation and 3D reconstruction. Individualized dose optimization techniques were used for this CT. COMPARISON: No relevant priors. FINDINGS: Normal bilateral petrous carotid arteries. There is calcified plaque formation of the right cavernous carotid artery, with a mild stenosis (less than 50%). There is calcified plaque formation of the left cavernous carotid artery, without a cross-sectional luminal stenosis. Normal right A1 segments of the anterior cerebral artery. Normal left A1 segments of the anterior cerebral artery. Normal intact anterior communicating artery (ACOM). Normal bilateral A2 segments of the anterior cerebral arteries. Normal right M1 and M2 segments of the middle cerebral arteries, with a normal M1 bifurcation. Normal left M1 and M2 segments of the middle cerebral arteries, with a normal M1 bifurcation. Normal right posterior communicating artery (PCOM). Normal left posterior communicating artery (PCOM). Normal bilateral vertebral arteries. Normal basilar artery with a normal basilar bifurcation. The visualized bilateral superior cerebellar (SCA) arteries are normal. Normal bilateral P1, P2 and visualized P3 segments of the posterior cerebral arteries. There is no demonstrated aneurysm of the [place] of [place]. There is no demonstrated abnormality of the visualized brain. AORTIC ARCH: Normal visualized aortic arch. Normal origins of the brachiocephalic, left common carotid, and left subclavian arteries. RIGHT CAROTID ARTERIES: Normal right common carotid artery (CCA). There is moderate atherosclerotic plaque formation with mild narrowing of the right carotid bulb. There is moderate atherosclerotic plaque formation of the origin of the right internal carotid artery with less than 50% cross sectional diameter stenosis. Normal visualized cervical portion of the right internal carotid artery. Normal origin of the right external carotid artery (ECA). LEFT CAROTID ARTERIES: Normal left common carotid artery (CCA). Normal left common carotid bulb. Normal origin of the left internal carotid (ICA) artery without a hemodynamically significant stenosis. Normal visualized cervical portion of the left internal carotid artery. Normal origin of the left external carotid artery (ECA). VERTEBRAL ARTERIES: Normal bilateral vertebral arteries. CT/STROKE CTA Head AND Neck W/Con IMPRESSION: No acute abnormality. No large vessel occlusions. 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 Electronically Signed: Toribio Giraldo MD at 17:49 EST ,
--- NOTE | 2023-10-21 17:20 | EDS_ITS ---
HPI History of Present Illness Chief Complaint: Stroke Alert Detail of Chief Complaint: Concern for stroke Informant: patient and EMS Narrative Narrative: Patient brought to the emergency department from home by EMS. Last known well per apparently was yesterday sometime. Patient more confused and having a hard time expressing himself. Patient denies headache. Denies chest pain or abdominal pain. He is able to follow commands appropriately. At times have a hard time expressing what he wants to say. Normally per EMS stated that he speaks normally. He denies recent illness. [facility] Medical History (Updated 10/21/23 @ 20:[address] Sara Reaves MD) Agent orange exposure Alcohol use Ambulates with cane Arthritis Arthropathy of cervical facet joint Asthma Atherosclerotic heart disease of [place] coronary artery without angina pectoris Back pain Bilirubinuria Cancer Cardiology follow-up encounter Cervical spondylosis Chondromalacia of both patellae Chondromalacia, left knee Chondromalacia, right knee Contact with or exposure to other viral diseases COVID-19 virus detected (11/19/20) Degeneration of cervical disc without myelopathy Degeneration of intervertebral disc of lumbosacral region Diabetes Fusion of spine, cervical region High cholesterol (~08/21/23) History of echocardiogram History of IBS History of pain when walking History of steroid therapy History of stress test Hyperlipemia Injury of head and neck Left knee DJD Nonrheumatic aortic (valve) stenosis with insufficiency Obesity Opioid dependence Prostate disease Radiculopathy of lumbosacral region Restless legs Right knee DJD Shortness of breath on exertion Smokeless tobacco use Spinal stenosis of lumbosacral region Spondylosis of lumbosacral region without myelopathy or radiculopathy Syncope Tear of medial meniscus of right knee Type 2 diabetes mellitus Wears hearing aid Home Medications aspirin 81 mg tablet,delayed release 81 mg PO DAILY HEART HEALTH 12/23/15 [History Last Taken 07/11/23] multivitamin 1 tab PO DAILY supplement 07/09/19 [History Last Taken 07/17/23 06:00] baclofen 10 mg tablet 10 mg PO TID PRN PRN Muscle Spasm 05/14/20 [History Last Taken 07/17/23 18:00] gabapentin 100 mg capsule 200 mg PO TID neuropathy 05/14/20 [History Last Taken 07/17/23 18:00] naproxen sodium 220 mg capsule (Aleve) 220 mg PO BID PRN Pain 02/04/22 [History Last Taken 07/17/23 18:00] albuterol sulfate 90 mcg/actuation aerosol inhaler 1 - 2 puff inhalation Q4H PRN PRN Wheezing #8.5 grams 04/21/22 [Rx Last Taken Unknown] handicap placard #1 ea 04/21/22 [Rx Last Taken Unknown] blood sugar diagnostic (FreeStyle Lite Strips) #100 ea 09/15/22 [Rx Last Taken Unknown] blood-glucose meter (FreeStyle Lite Meter kit) #1 ea 09/15/22 [Rx Last Taken Unknown] fluticasone propionate 50 mcg/actuation nasal spray,suspension 1 - 2 spray intranasal BID PRN allergies, congestion #16 grams 04/27/23 [Rx Last Taken 01/03 03:00] metformin 500 mg tablet 500 mg PO BID DIABETES #180 tabs 04/27/23 [Rx Last Taken 07/17/23 18:00] linaclotide 72 mcg capsule 72 mcg PO DAILY IBS #90 caps 06/27/23 [Rx Last Taken 07/17/23 06:00] acetaminophen 500 mg capsule 1,000 mg PO Q6H PRN pain 07/18/23 [History Last Taken 07/17/23 18:00] atorvastatin 40 mg tablet 40 mg PO QHS CHOLESTEROL #90 tabs 08/21/23 [Rx Last Taken Unknown] medical marijuana card PO 08/21/23 [History Last Taken Unknown] omeprazole 40 mg capsule,delayed release 40 mg PO DAILY PRN Reflux #30 caps 08/21/23 [Rx Last Taken Unknown] trazodone 50 mg tablet 50 - 100 mg (1 - 2 x 50 mg) PO QHS sleep #90 tabs 08/21/23 [Rx Last Taken Unknown] sucralfate 1 gram tablet (Carafate) 1 g PO QACHS #30 tabs 09/27/23 [Rx Last Taken Unknown] metoclopramide HCl 10 mg tablet (Reglan) 10 mg PO Q8H PRN PRN nausea and vomiting #14 tabs 10/01/23 [Rx Last Taken Unknown] ondansetron 4 mg disintegrating tablet 4 mg PO Q6H PRN nausea and vomiting #20 tabs 10/03/23 [Rx Last Taken Unknown] oxycodone 5 mg tablet 7.5 mg PO TID PRN PRN pain 10/21/23 [History Last Taken Unknown] tamsulosin 0.4 mg capsule 0.4 mg PO QHS PRN urinary retention 10/21/23 [History Last Taken Unknown] Allergy/AdvReac Type Severity Reaction Status Date / Time adhesive tape Allergy Rash Verified 10/21/23 17:52 sertraline [From Zoloft] AdvReac Unknown Verified 10/21/23 17:52 Family History (Updated 10/21/23 @ 20:[address] Sara Reaves MD) Brother Heart disease Myocardial infarction 60's CAD (coronary artery disease) Father Myocardial infarction 65 CAD (coronary artery disease) Mother HLD (hyperlipidemia) when son was 16 following MVA, healthy aside HLD. Surgical History H/O cervical spine surgery (08/2020) H/O coronary artery bypass surgery (09/14/11) History of back surgery History of carpal tunnel release History of herniorrhaphy History of lateral meniscus repair of right knee (~2021) History of left heart catheterization (09/09/11) Hx laparoscopic cholecystectomy (~11/2022) Hx of bilateral cataract extraction Status post discectomy for herniated nucleus pulposus Social History (Updated 10/21/23 @ 20:[address] Sara Reaves MD) household members: spouse Smoking Status: Never smoker Smokeless tobacco user: chewing tobacco alcohol intake: current alcohol intake frequency: a few times a month substance use type: does not use caffeine: Yes Type: coffee Number of servings: 2 ROS ROS ED Review of Systems ROS Unobtainable: other Constitutional Constitutional ED: Reports lethargy; Denies chills, fever(s), sweats or weight loss Eyes Eyes: Denies blurry vision, change in vision or diplopia ENT ENT ED: Denies rhinorrhea or sore throat Cardiovascular Cardiovascular: Denies chest pain, orthopnea or racing heartbeat Respiratory/Chest Respiratory/Chest: Denies cough, dyspnea, dyspnea on exertion, orthopnea or sputum Gastrointestinal Gastrointestinal: Denies abdominal pain, diarrhea, nausea or vomiting Genitourinary Genitourinary ED: Denies dysuria, hematuria or urinary frequency Musculoskeletal Musculoskeletal: Denies arthralgias, back pain, myalgias or neck pain Integumentary Denies abscess, Abrasions or rash Neurologic Neurologic: Reports other Details: Confusion and difficulty with speech ; Denies headache(s) or weakness Psychiatric Psychiatric: Denies anxiety, depression or suicidal thoughts Endocrine Endocrinology: Denies polydipsia, polyphagia or polyuria Hematologic/Lymphatic Hematologic/Lymphatic: Denies easy bleeding, easy bruising or lymphadenopathy Allergic/Immunologic Allergic/Immunologic ED: Denies mouth swelling, tongue swelling or urticaria EXAM Physical Exam Const Vital Signs: 10/21/23 17:37 10/21/23 17:41 10/21/23 17:48 Temperature 98.0 F Temperature Source Oral Pulse Rate 82 82 Respiratory Rate 16 15 Blood Pressure 136/82 H 136/73 H Blood Pressure Mean 100 94 Pulse Ox 98 96 Oxygen Delivery Method Room Air Room Air Room Air 10/21/23 18:17 10/21/23 19:15 10/21/23 19:30 Temperature Temperature Source Pulse Rate 81 79 77 Respiratory Rate 17 16 19 H Blood Pressure 131/86 H 123/73 H 135/75 H Blood Pressure Mean 101 89 95 Pulse Ox 97 97 95 Oxygen Delivery Method Room Air Room Air Room Air Positive well nourished and well developed General Appearance ED: well developed and NAD HEENT Reports TM's clear and moist mucous membranes normocephalic and atraumatic; Negative for trauma or tenderness Tympanic Membrane ED: Yes TM's clear Eyes PERRL and EOMs intact bilaterally General Eye ED: Negative for pale conjunctiva or scleral icterus Neck no lymphadenopathy, supple and no JVD General: Negative for tenderness Chest Wall inspection of chest normal and palpation of chest normal Chest: Negative for tenderness Resp normal respiratory effort and clear to auscultation bilaterally Effort and Inspection: Negative for respiratory distress or pain with movement Auscultation: Negative for rhonchi, wheezes or diminished lung sounds Cardio regular rate, regular rhythm, S1 normal heart sound, S2 normal heart sound and no murmurs Peripheral Pulses: pulses 2+ throughout GI normal to inspection, nondistended, normoactive bowel sounds, soft to palpation, non-tender, non-distended and no masses Back/Spine no CVA tenderness and no thoracic nor lumbar tenderness Extremity normal to inspection General Extremety ED: Negative for edema General Extremity: Negative for edema Neuro oriented x3, CN's II-XII intact bilaterally, no sensory deficits noted and gait normal Neuro Narrative: No obvious facial droop. No obvious focal weakness as there seems to be just a generalized weakness of both upper and lower extremities. Patient does have some expressive aphasia. Did give him an NIH of 2. Sensorium / Orientation: awake, alert, oriented to person, oriented to place and oriented to time Motor Exam: strength 5/5 throughout and strength abnormal Psych mental status grossly normal Skin no rashes or lesions noted and no wounds MDM MDM MDM Narrative Medical decision making narrative: Patient presents with concern for stroke and last known well was yesterday. Patient will not be a thrombolytic candidate. Unclear if patient having stroke versus other metabolic encephalopathy. Discussed case with stroke neurologist and they are in agreement that will not require thrombolytics due to patient not being in timeframe for such. EKG obtained arrival showed a sinus rhythm with rate of 81 bpm with no acute ST segment changes. CBC with differential showed a normal white count of 10.3 with hemoglobin 13 and platelet count of 343. Chemistries unremarkable. Troponin was normal at 28. Ammonia level was less than 10. Urinalysis was normal. At this point etiology of symptoms unclear but will need to rule out stroke and will need admitted for MRI and further evalu ation. Will discuss case with hospitalist to evaluate further. Lab Data Attestation: I reviewed the patient's lab results. Labs: Laboratory Results - last 24 hr 10/21/23 10/21/23 10/21/23 16:52 18:25 18:27 WBC 10.3 RBC 4.60 Hgb 13.1 Hct 39.1 L MCV 85.0 MCH 28.5 MCHC 33.5 RDW Std Deviation 41.1 RDW Coeff of Frankie 13.3 Plt Count 343 MPV 8.1 Immature Gran % (Auto) 0.400 Neut % (Auto) 69.6 Lymph % (Auto) 20.2 [place] % (Auto) 9.6 Eos % (Auto) 0.0 Baso % (Auto) 0.2 Absolute Neuts (auto) 7.2 Absolute Lymphs (auto) 2.09 Nucleated RBC % 0 PT 13.7 INR 1.1 APTT 26.6 Sodium 131 L Potassium 3.2 L Chloride 97 L Carbon Dioxide 26.0 Anion Gap 8 BUN 24 H Creatinine 0.84 Estim Creat Clear Calc 84.49 Est GFR (MDRD) Af Amer 116 Est GFR (MDRD) Non-Af 96 BUN/Creatinine Ratio 28.5 H Glucose 131 H Calcium 9.5 Magnesium 1.4 L Ammonia < 10.0 L Troponin I High Sens 28 Urine Color Yellow Urine Clarity Clear Urine pH 7.0 Ur Specific [place] 1.010 Urine Protein 30 H Urine Glucose (UA) 50 H Urine Ketones 15 H Urine Occult Blood 25 H Urine Nitrite Negative Urine Bilirubin Negative Urine Urobilinogen Normal Ur Leukocyte Esterase 25 H Urine RBC 0 SEEN Urine WBC 0-5 SEEN Ur Squamous Epith Cells 0 SEEN Urine Bacteria 0 SEEN Urine Mucus 0 SEEN Radiography Diagnostic Testing: Clinical Impression(s) from Imaging Studies Brain CT 10/21/23 17:19 IMPRESSION: Chronic age related changes and atrophy. No acute abnormality or significant change. Electronically Signed: Toribio Giraldo MD at 17:34 EST Reading Location ID and State: [facility] / [place] , Service support , ADDENDUM: 10/21/23 1746 IMPRESSION: Chronic age related changes and atrophy. No acute abnormality or significant change. N.B. : The above Results were Read Back by Toribio Giraldo MD to Kayli Granados DO, and understanding confirmed on 10/21/2023 17:39:16 (ET). Electronically Signed: Toribio Giraldo MD at 17:34 EST Reading Location ID and State: [facility] / [place] , Service support , Head/Neck CTA 10/21/23 17:19 IMPRESSION: No acute abnormality. No large vessel occlusions. 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 Electronically Signed: Toribio Giraldo MD at 17:49 EST Reading Location ID and State: [facility] / [place] , Service support , ADDENDUM: 10/21/23 1758 IMPRESSION: No acute abnormality. No large vessel occlusions. 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 N.B. : The above Results were Read Back by Toribio Giraldo MD to Kayli Granados DO, and understanding confirmed on 10/21/2023 17:51:20 (ET). Electronically Signed: Toribio Giraldo MD at 17:49 EST , Chest X-Ray 10/21/23 18:05 IMPRESSION: No definite acute or significant abnormality seen. Electronically Signed: Toribio Giraldo MD at 19:00 EST , 1 view chest x-ray obtained interpreted by myself as no evidence of infiltrate or pneumothorax or acute process. Radiology in agreement. EKG Initial EKG: Attestation: I personally reviewed and interpreted this EKG as follows: Comments: Sinus rhythm with rate of 81 bpm with no acute ST segment changes Discharge Plan Dx/Rx/DC Orders Clinical Impression: Expressive aphasia, Acute CVA (cerebrovascular accident), Altered mental status Disposition Disposition: Acute Care [facility] Discharge Date/Time: 10/21/23 20:11
--- NOTE | 2023-10-21 17:23 | NURSING ---
1704 STROKE ALERT CALLED, ETA 7 MIN
[2023-10-21 17:45] LABS: Absolute Lymphocyte Count 2.09 X10^3/uL (0.83-4.51); Absolute Neutrophil Count 7.2 X10^3/uL (2.0-7.7); Basophil# 0.02 X10^3/uL; Basophil% 0.2 % (0-1); Hematocrit 39.1 % (40-54); Hemoglobin 13.1 g/dL (13.0-16.5); Lymphocyte # 2.09 X10^3/ul (0.83-4.51); Lymphocyte % 20.2 % (19-41); Mean Corp Hgb Conc 33.5 g/dL (32-36); Mean Corpuscular Hgb 28.5 pg (27.0-32.0); Mean Platelet Vol. 8.1 fl (6.2-12.0); Monocyte# 0.99 X10^3/uL; Monocyte% 9.6 % (0-10); NRBC Flagged by Analyzer 0 % (0-5); Neutrophil % 69.6 % (47-70); Platelet Count 343 K/mm3 (150-450); RBC Distribution Width CV 13.3 % (11.6-14.6); RBC Distribution Width SD 41.1 fl (35.1-43.9); White Blood Count 10.3 K/mm3 (4.4-11.0)
[2023-10-21 17:46] LABS: International Normalized Ratio 1.1; Prothrombin Time (Protime)PT. 13.7 SECONDS (11.7-14.9)
[2023-10-21 17:47] LABS: Partial Thromboplast Time 26.6 Seconds (24.1-36.2)
[2023-10-21 17:53] LABS: Anion Gap 8 (5-15); BUN 24 mg/dL (7-18); BUN/Creat Ratio 28.5 RATIO (10-20); Calcium,Total 9.5 mg/dL (8.5-10.1); Chloride 97 mmol/L (98-107); Creatinine, Serum 0.84 mg/dL (0.70-1.30); EST Glomerular Filtration Rate 96 mL/min (>60); Est Glom Filt Rate - Afr Amer 116 mL/min (>60); Estimated Creatinine Clearance 84.49 ml/min; Glucose 131 mg/dL (74-106); Potassium 3.2 mmol/L (3.5-5.1); Sodium Level 131 mmol/L (136-145); Troponin-I HS 28 pg/mL (3.0-78.0)
--- NOTE | 2023-10-21 18:05 | RAD_ITS ---
STUDY: X-RAY CHEST REASON FOR EXAM: Male, 68 years old. Neuro deficit, acute, stroke suspected TECHNIQUE: Single AP portable view of the chest. COMPARISON: 08/14/2023. FINDINGS: The lungs are clear and expanded. There is no demonstrated pleural abnormality. Normal size heart. Previous CABG. Normal mediastinum and audra. Normal visualized pulmonary arteries. Normal visualized aortic arch and descending thoracic aorta. Normal visualized thoracic spine. Normal visualized ribs, clavicles, and shoulders. There is no demonstrated abnormality of the visualized soft tissue structures of the upper abdomen. RAD/Chest 1 View IMPRESSION: No definite acute or significant abnormality seen. Electronically Signed: Toribio Giraldo MD at 19:00 EST ,
--- OUTSIDE RECORDS SUMMARY | 2023-10-21 18:07 | XMS RPT_ITS | CCD ---
Author Name Unknown Address [address] [place] [address] Organization [facility] Care Team Providers Care Meter/Relay Craftsman Name Role Phone HOLLY COHEN Unavailable Unavailable [...] Allergy Type Date of Onset Reaction(s) Facility (18 sources) Adhesive Tape; Translations: [ADHESIVE TAPE (ROSINS)] Propensity to adverse reactions (disorder) 5 Itching [facility] (18 sources) Contrast media; Translations: [CONTRAST DYE] Propensity to adverse reactions (disorder) 9 [facility] (2 sources) cortisone; Translations: [CORTISONE] Drug Allergy 4 [facility] (18 sources) sertraline; Translations: [SERTRALINE] Drug Allergy 4 [facility] (18 sources) FD AND C BLUE NO.1; Translations: [FD AND C BLUE NO.1] Propensity to adverse reactions (disorder) 9 [facility] Medications Completed/Discontinued Medications Medication Drug [...] Problem Classification Problem Date Documented Date Episodic/Chronic Abdominal pain (8 sources) Epigastric pain; Translations: [Epigastric pain] Onset: 10-20-2022 Episodic Chronic obstructive pulmonary disease and bronchiectasis (15 sources) Emphysematous bronchitis; Translations: [Chronic obstructive pulmonary disease, unspecified] 07-17-2017 Chronic Complication of device; implant or graft (1 source) Atherosclerosis of coronary artery bypass graft(s), unspecified, with other forms of angina pectoris; Translations: [Atherosclerosis of coronary artery bypass graft(s), unspecified, with other forms of angina pectoris] Onset: 09-19-2017 Chronic Coronary atherosclerosis and other heart disease (16 sources) Atherosclerotic heart disease of [place] coronary artery without angina pectoris; Translations: [Coronary arteriosclerosis] Onset: 09-04-2012 08-09-2021 Chronic Diabetes mellitus without complication (15 sources) Type 2 diabetes mellitus without complication; Translations: [Type 2 diabetes mellitus without complications] Onset: 07-17-2018 07-17-2018 Chronic Disorders of lipid metabolism (15 sources) Hyperlipidemia; Translations: [Other hyperlipidemia] 07-17-2017 Chronic Diverticulosis and diverticulitis (2 sources) Diverticular disease; Translations: [Diverticulosis of intestine, part unspecified, without perforation or abscess without bleeding] Onset: 10-07-2022 Chronic Esophageal disorders (17 sources) Gastro-esophageal reflux disease with esophagitis; Translations: [Gastroesophageal reflux disease with esophagitis] Onset: 09-24-2016 09-24-2016 Chronic Hyperplasia of prostate (15 sources) Benign prostatic hypertrophy with outflow obstruction; Translations: [Benign prostatic hyperplasia with lower urinary tract symptoms] Onset: 08-04-2017 08-04-2017 Chronic Osteoarthritis (14 sources) Degenerative joint disease involving multiple joints; Translations: [Polyosteoarthritis, unspecified] Onset: 12-10-2003 07-17-2017 Chronic Other and unspecified benign neoplasm (4 sources) History of polyp of colon; Translations: [Personal history of colonic polyps] Episodic Other ear and sense organ disorders (15 sources) Bilateral hearing loss; Translations: [Unspecified hearing loss, bilateral] 08-09-2021 Chronic Other inflammatory condition of skin (14 sources) Rosacea; Translations: [Rosacea, unspecified] 08-09-2021 Chronic Other nutritional; endocrine; and metabolic disorders (15 sources) Obese class I; Translations: [Obesity, unspecified] Onset: 01-15-2018 01-15-2018 Chronic Other screening for suspected conditions (not mental disorders or infectious disease) (1 source) Patient encounter status; Translations: [Encounter for screening for malignant neoplasm of colon] Episodic Spondylosis; intervertebral disc disorders; other back problems (14 sources) Prolapsed cervical intervertebral disc without myelopathy; Translations: [Other cervical disc displacement, unspecified cervical region] Onset: 12-10-2003 12-10-2003 Chronic Unclassified (1 source) Unknown / UNK(Unknown) Onset: 09-19-2017 Past or Other Problems Problem Classification Problem Date Documented Da te Episodic/Chronic Biliary tract disease (5 sources) Cholelithiasis without obstruction; Translations: [Calculus of gallbladder without cholecystitis without obstruction] Onset: 10-20-2022 Episodic Coronary atherosclerosis and other heart disease (1 source) Coronary atherosclerosis and other heart disease Onset: 09-19-2017 Diabetes mellitus without complication (14 sources) Impaired fasting glycemia; Translations: [Impaired fasting glucose] Onset: 07-15-2016 07-15-2016 Episodic Gastritis and duodenitis (2 sources) Gastroduodenitis; Translations: [Gastroduodenitis, unspecified, without bleeding] Onset: 10-07-2022 Episodic Other and unspecified benign neoplasm (14 sources) Tubular adenoma of colon; Translations: [Benign neoplasm of colon, unspecified] Onset: 10-30-2014 10-30-2014 Episodic Other and unspecified benign neoplasm (1 source) Personal history of colonic polyps; Translations: [History of colonic polyps] Onset: 10-07-2022 Episodic Other connective tissue disease (14 sources) Fibromyalgia; Translations: [Fibromyalgia] Onset: 12-10-2003 04-12-2016 Episodic Other gastrointestinal disorders (15 sources) Constipation; Translations: [Constipation, unspecified] Onset: 06-28-2010 07-17-2017 Episodic Other lower respiratory disease (1 source) Other forms of dyspnea; Translations: [Other forms of dyspnea] Onset: 09-19-2017 Episodic Spondylosis; intervertebral disc disorders; other back problems (16 sources) Lumbosacral neuritis; Translations: [Radiculopathy, lumbosacral region] Onset: 07-28-2009 08-09-2021 Episodic Results Test Name Value Interpretation Reference Range Facil ity Vital Signs Date Time Vital Sign Value Performing Clinician Faci lity 10-11-2023 09:18-0500 Diastolic blood pressure 72 mm[Hg] Ben Marshall MD Work Phone: [facility] 10-11-2023 09:18-0500 Heart rate 82 /min Ben Marshall MD Work Phone: [facility] 10-11-2023 09:18-0500 Respiratory rate 16 /min Ben Marshall MD Work Phone: [facility] 10-11-2023 09:18-0500 SaO2% (BldA) [Mass fraction] 97 % Ben Marshall MD Work Phone: [facility] 10-11-2023 09:18-0500 Systolic blood pressure 108 mm[Hg] Ben Marshall MD Work Phone: [facility] 10-11-2023 08:08-0500 Body temperature 97.81 [degF] Ben Marshall MD Work Phone: [facility] 10-11-2023 08:08-0500 Body weight 96.6 kg Ben Marshall MD Work Phone: [facility] 11-18-2022 09:25-0400 Body height 177.8 cm Edilia Walls PA-C Work Phone: [facility] 11-18-2022 09:25-0400 Body temperature 98.01 [degF] Edilia Walls PA-C Work Phone: [facility] 11-18-2022 09:25-0400 Body weight 96.62 kg Edilia Walls PA-C Work Phone: [facility] 11-18-2022 09:25-0400 Diastolic blood pressure 78 mm[Hg] Edilia Harrogate PA-C Work Phone: [facility] 11-18-2022 09:25-0400 Heart rate 89 /min Edilia Titi PA-C Work Phone: [facility] 11-18-2022 09:25-0400 SaO2% (BldA) [Mass fraction] 95 % Edilia Harrogate PA-C Work Phone: [facility] 11-18-2022 09:25-0400 Systolic blood pressure 140 mm[Hg] Edilia Titi PA-C Work Phone: [facility] 11-04-2022 11:02-0400 Body height 177.8 cm Pacc 1 Work Phone: [facility] 11-04-2022 11:02-0400 Body temperature 98.2 [degF] Pacc 1 Work Phone: [facility] 11-04-2022 11:02-0400 Body weight 99.34 kg Pacc 1 Work Phone: [facility] 11-04-2022 11:02-0400 Diastolic blood pressure 82 mm[Hg] Pacc 1 Work Phone: [facility] 11-04-2022 11:02-0400 Heart rate 69 /min Pacc 1 Work Phone: [facility] 11-04-2022 11:02-0400 Respiratory rate 14 /min Pacc 1 Work Phone: [facility] 11-04-2022 11:02-0400 SaO2% (BldA) [Mass fraction] 97 % Pacc 1 Work Phone: [facility] 11-04-2022 11:02-0400 Systolic blood pressure 132 mm[Hg] Pacc 1 Work Phone: [facility] 10-20-2022 08:49-0500 Body height 177.8 cm Leroy Alcocer MD Work Phone: [facility] 10-20-2022 08:49-0500 Body temperature 97.9 [degF] Leroy Alcocer MD Work Phone: [facility] 10-20-2022 08:49-0500 Body weight 100.25 kg Leroy Alcocer MD Work Phone: [facility] 10-20-2022 08:49-0500 Diastolic blood pressure 78 mm[Hg] Leroy Alcocer MD Work Phone: [facility] 10-20-2022 08:49-0500 Heart rate 80 /min Leroy Alcocer MD Work Phone: [facility] 10-20-2022 08:49-0500 Respiratory rate 12 /min Leroy Alcocer MD Work Phone: [facility] 10-20-2022 08:49-0500 SaO2% (BldA) [Mass fraction] 96 % Leroy Alcocer MD Work Phone: [facility] 10-20-2022 08:49-0500 Systolic blood pressure 122 mm[Hg] Leroy Alcocer MD Work Phone: [facility] 10-07-2022 15:25-0500 Body temperature 97.9 [degF] Edilia Harrogate PA-C Work Phone: [facility] 10-07-2022 15:25-0500 Diastolic blood pressure 88 mm[Hg] Edilia Titi PA-C Work Phone: [facility] 10-07-2022 15:25-0500 Heart rate 82 /min Edilia Harrogate PA-C Work Phone: [facility] 10-07-2022 15:25-0500 SaO2% (BldA) [Mass fraction] 95 % Edilia Harrogate PA-C Work Phone: [facility] 10-07-2022 15:25-0500 Systolic blood pressure 112 mm[Hg] Edilia Harrogate PA-C Work Phone: [facility] 09-27-2022 11:00-0500 Diastolic blood pressure 67 mm[Hg] Leroy Alcocer MD Work Phone: [facility] 09-27-2022 11:00-0500 Heart rate 67 /min Leroy Alcocer MD Work Phone: [facility] 09-27-2022 11:00-0500 Respiratory rate 16 /min Leroy Alcocer MD Work Phone: [facility] 09-27-2022 11:00-0500 SaO2% (BldA) [Mass fraction] 93 % Leroy Alcocer MD Work Phone: [facility] 09-27-2022 11:00-0500 Systolic blood pressure 149 mm[Hg] Leroy Alcocer MD Work Phone: [facility] 09-27-2022 07:58-0500 Body temperature 97.39 [degF] Leroy Alcocer MD Work Phone: [facility] 09-27-2022 07:58-0500 Body weight 100.1 kg Leroy Alcocer MD Work Phone: [facility] 08-09-2022 13:11-0500 Body height 177.8 cm Edilia Titi PA-C Work Phone: [facility] 08-09-2022 13:11-0500 Body temperature 97.2 [degF] Edilia Titi PA-C Work Phone: [facility] 08-09-2022 13:11-0500 Body weight 100.06 kg Edilia Titi PA-C Work Phone: [facility] 08-09-2022 13:11-0500 Diastolic blood pressure 76 mm[Hg] Edilia Titi PA-C Work Phone: [facility] 08-09-2022 13:11-0500 Heart rate 82 /min Edilia Harrogate PA-C Work Phone: [facility] 08-09-2022 13:11-0500 SaO2% (BldA) [Mass fraction] 97 % Edilia Harrogate PA-C Work Phone: [facility] 08-09-2022 [id number] Systolic blood pressure 108 mm[Hg] Edilia Walls PA-C Work Phone: [facility] Encounters Encounter Date Encounter Type Care Provider Facility Start: 10-11-2023 End: 10-11-2023 Subsequent hospital visit by physician Ben Marshall MD Work Phone: Ambulatory Surgery Procedures Date Procedure Procedure Detail Performing Clinician Start: 10-11-2023 Esophagogastroduodenoscopy transoral diagnostic Leroy Alcocer MD Work Phone: Start: 09-27-2022 Level iv surg pathology gross&microscopic exam Leroy Alcocer MD Work Phone: Start: 09-27-2022 Colonoscopy flx dx w/collj spec when pfrmd Edilia Walls PA-C Work Phone: Start: 09-27-2022 Esophagogastroduodenoscopy transoral diagnostic Leroy Alcocer MD Work Phone: Start: 09-27-2022 Gluc bld gluc mntr dev cleared fda spec home use Leroy Alcocer MD Work Phone: Start: 09-27-2022 Colonoscopy Edilia Walls PA-C Work Phone: Start: 06-21-2017 Colonoscopy Edilia Walls PA-C Work Phone: Plan of Treatment Date Care Activity Detail Author Start: 09-27-2027 Colonoscopy COLONOSCOPY [facility] Start: 09-27-2027 COLORECTAL CANCER SCREENING COLORECTAL CANCER SCREENING [facility] Start: 09-27-2027 Screening for malignant neoplasm of colon [facility] Start: 08-14-2023 Advance Directive Discussion Advance Directive Discussion [facility] Start: 08-14-2023 Depression Assessment Depression Assessment [facility] Start: 04-14-2023 Covid-19 Vaccine ( season) Covid-19 Vaccine () [facility] Start: 04-14-2023 Influenza vaccination [facility] Start: 08-14-2022 ADVANCE DIRECTIVE DISCUSSION ADVANCE DIRECTIVE DISCUSSION [facility] Start: 08-14-2022 DEPRESSION ASSESSMENT DEPRESSION ASSESSMENT [facility] Start: 06-21-2022 Colonoscopy COLONOSCOPY [facility] Start: 06-21-2022 COLORECTAL CANCER SCREENING COLORECTAL CANCER SCREENING [facility] Start: 04-14-2022 Influenza vaccination INFLUENZA (#1) [facility] Start: 07-10-2021 COVID-19 VACCINE (4 - Booster for Pfizer series) COVID-19 VACCINE (4 - Booster for Pfizer series) [facility] Start: 07-10-2021 COVID-19 VACCINE (4 - Pfizer series) COVID-19 VACCINE (4 - Pfizer series) [facility] Start: 04-17-2020 Hepatitis B screening URINE ALBUMIN:CREATININE RATIO [facility] Start: 04-09-2020 Hepatitis B surface antibody level LDL CHOLESTEROL [facility] Start: 03-20-2020 PNEUMOCOCCAL: 65+ (3 - PPSV23 if available, else PCV20) PNEUMOCOCCAL: 65+ (3 - PPSV23 if available, else PCV20) [facility] Start: 03-20-2020 PNEUMOCOCCAL: 65+ (3 - PPSV23 or PCV20) PNEUMOCOCCAL: 65+ (3 - PPSV23 or PCV20) [facility] Start: 01-28-2020 Shingrix Vaccine (2 of 2) Shingrix Vaccine (2 of 2) [facility] Start: 11-29-2019 Glaucoma screening Dilated Retinal Exam [facility] Start: 11-29-2019 Hepatitis C antibody, confirmatory test DILATED RETINAL EXAM [facility] Start: 11-22-2019 ANNUAL PCP TEAM CHRONIC DISEASE VISIT ANNUAL PCP TEAM CHRONIC DISEASE VISIT [facility] Start: 10-10-2019 Hemoglobin A1c measurement HbA1C [facility] Start: 10-10-2019 Hemoglobin A1c/Hemoglobin.total in Blood HBA1C [facility] Start: 07-17-2019 3 comp foot exam completed DIABETIC FOOT EXAM [facility] Start: 07-17-2019 Diabetic foot examination Diabetic Foot Exam [facility] Start: 2013 Hepatitis B Vaccine (1 of 3 - Risk 3-dose series) Hepatitis B Vaccine (1 of 3 - Risk 3-dose series) [facility] Start: 2013 RSV Vaccine (1 - 1-dose 60+ series) RSV Vaccine (1 - 1-dose 60+ series) [facility] Start: 03-08-2013 Urine microalbumin profile [facility] Start: 2003 SHINGRIX VACCINE (1 of 2) SHINGRIX VACCINE (1 of 2) [facility] Start: 1998 COLOGUARD (FIT-DNA) COLOGUARD (FIT-DNA) [facility] Start: [address] COLONOGRAPHY [facility] Start: 1998 FECAL OCCULT BLOOD FECAL OCCULT BLOOD [facility] Start: 1998 Screening for malignant neoplasm of colon [facility] Start: 1998 SIGMOIDOSCOPY SIGMOIDOSCOPY [facility] Start: 1983 Zoledronic acid therapy ALPHA-1 ANTITRYPSIN DEFICIENCY SCREENING [facility] Start: 1971 SPIROMETRY SPIROMETRY [facility] End: 09-16-2023 EGD DIAGNOSTIC EGD DIAGNOSTIC Endoscopy Routine Epigastric pain 1 Occurrences starting 09/16/2022 until 09/16/2023 [facility] Work Phone: Immunizations Immunization Date Immunization Notes Care Provider Swathi brizuela 03-14-2022 influenza virus vacc ine, unspecified formulation Leroy Alcocer MD Work Phone: [facility] 07-17-2018 influenza, high dose seasonal, preservative-free Edilia Titi PA-C Work Phone: [facility] Work Phone: 07-17-2018 pneumococcal conjuga te vaccine, 13 valent Edilia Harrogate PA-C Work Phone: [facility] Work Phone: 07-17-2017 influenza, injectabl e, quadrivalent, contains preservative Edilia Titi PA-C Work Phone: [facility] 07-15-2016 influenza, injectabl e, quadrivalent, contains preservative Edilia Harrogate PA-C Work Phone: [facility] 07-29-2015 influenza, injectabl e, quadrivalent, contains preservative Edilia Harrogate PA-C Work Phone: [facility] Work Phone: 03-20-2015 pneumococcal polysaccharide vaccine, 23 valent Edilia Harrogate PA-C Work Phone: [facility] 06-10-2014 influenza, seasonal, injectable Edilia Titi PA-C Work Phone: [facility] 03-07-2013 tetanus and diphther ia toxoids, not adsorbed, for adult use Edilia Harrogate PA-C Work Phone: [facility] 06-14-2012 influenza virus vacc ine, unspecified formulation Edilia Harrogate PA-C Work Phone: [facility] 06-25-2010 influenza virus vacc ine, unspecified formulation Edilia Harrogate PA-C Work Phone: [facility] 06-05-2009 influenza virus vacc ine, unspecified formulation Edilia Titi PA-C Work Phone: [facility] Work Phone: 07-18-2007 influenza virus vacc ine, unspecified formulation Edilia Harrogate PA-C Work Phone: [facility] Work Phone: 06-13-2006 influenza virus vacc ine, unspecified formulation Edilia Titi PA-C Work Phone: [facility] Work Phone: Payers Date Payer Category Payer Medicare [id number] 2007 Medicare [employer] [place] [place] [id number] 2007-Present [phone] [address] [place] [address] O [id number] Social History Date Type Detail Facility Start: 10-13-2011 End: 10-20-2022 Tobacco smoking status NHIS Ex-smoker [facility] History of tobacco use Current smoker [facility] History of tobacco use Cigarette Smoker [facility] Start: 10-13-2011 End: 10-20-2022 Tobacco use and exposure User of smokeless tobacco [facility] History of tobacco use Chews Tobacco [facility] Start: 08-09-2022 End: 09-28-2022 Alcohol intake Current drinker of alcohol (finding) [facility] Start: 08-09-2022 End: 08-28-2022 Alcohol intake [facility] Start: 11-07-2017 Alcohol Comment rarely [facility] Start: 1955 Sex Assigned At Not on file [facility] Start: 09-27-2022 Tobacco Comment snuff 1 can a week [facility] Start: 10-20-2022 End: 10-11-2023 Alcohol intake Ex-drinker (finding) [facility] Start: 10-20-2022 Tobacco Comment One can a week .States only smoked occasionally years ago. [facility] Start: 08-28-2022 End: 11-18-2022 Tobacco use panel [facility] Adult Depression Screening Assessment 0 [facility] Medical Equipment Procedure Code Equipment Code Equipment Origin al Text Equipment Identifier Dates Test blood sugar (s) one times daily. Dx: Type 2 DM - Controlled E11.9 Insulin: No Start: 07-17-2018 Clinical Notes 06-16-2017 to 10-11-2023 Discharge Instr - Nursing - Velia Ravi RN - 10/11/2023 9:32 AM Velia Shepherd RN - 10/11/2023 9:30 AM Velia Shepherd RN - 10/11/2023 8:48 AM ESTPatient Instructions Note Date & Type Note Facility 10-11-2023 Miscellaneous Notes The patient received a copy of EGD discharge instructions that contain information for how to contact the physician who performed the procedure and when to seek medical care. documented in this encounter [facility] 10-11-2023 Nurse Note Arrived in phase II via cart. Left lateral position. Sedated, but responds to verbal stimuli. Color normal; skin warm and dry. Respirations wnl and unlabored. Abdomen soft and with + bowel sounds in quads X 4. Patient resting comfortably. Family at bedside. Dr. Marshall at bedside to review procedure and recommendations. Velia Ravi RN Arrived in phase II via cart. Left lateral position. [id number], but responds to verbal stimuli. Color normal; skin warm and dry. Respirations wnl and unlabored. Abdomen soft and with + bowel sounds in quads X 4. Patient resting comfortably. Family at bedside. Dr. Marshall at bedside to review procedure and recommendations. Velia Ravi RN documented in this encounter [facility] 10-11-2023 History and physical note HISTORY AND PHYSICAL Abdirizak Bates 1955 REFERRING PHYSICIAN: Leroy Alcocer MD CHIEF COMPLAINT: No chief complaint on file. HPI: The patient is a 68 year old male referred for endoscopy. Abdirizak notes The patient notes the following upper complaints: Abdirizak notes abdominal pain. The pain occurs in the following locations: epigastric region . Abdirizak denies heartburn. Abdirizak denies dysphagia. Abdirizak denies a history of ulcers/ peptic ulcer disease. Abdirizak has undergone prior endoscopy. PAST MEDICAL HISTORY Diagnosis Date Arthritis Asthma CAD (coronary artery disease) 09/04/2012 Calculus [...] 06/16/2017 Added automatically from request for surgery [id number] Impaired fasting glucose 07/15/2016 laparoscopic cholecystectomy 2022 Myalgia and myositis, unspecified Other and unspecified [...] & FORAMOTOMY 1 VRT SGM LUMBAR 2013 LAPAROSCOPIC CHOLECYSTECTOMY 11/11/2022 Lap Chioma NEUROPLASTY &/TRANSPOS MEDIAN NRV CARPAL TUNNE Right 2000 Carpal tunnel decomp right NEUROPLASTY &/TRANSPOS MEDIAN NRV CARPAL TUNNE Right 11/2014 Carpal tunnel decomp REMOVAL GALLBLADDER RMVL LENS MATERIAL PHACOFRAGMENTATION ASPIR 1999, 2001 Cataract Extraction bilateral RPR 1ST INGUN HRNA AGE 5 YRS/> REDUCIBLE 2003 - left RPR 1ST INGUN HRNA AGE 5 YRS/> REDUCIBLE 2001 2 right RPR UMBILICAL HRNA 5 YRS/> REDUCIBLE 2003 with mesh SKIN BIOPSY HX SPINAL FUSION,ANT,EA ADNL LEVEL 2020 TONSILLECTOMY HX Current Outpatient Medications Medication Sig oxyCODONE-acetaminophen (PERCOCET) 7.5-325 mg tablet Take 1 tablet by mouth every 12 hours as needed for pain. omeprazole (PRILOSEC) 40 mg capsule Take 1 capsule by mouth once daily. Multivitamin capsule Take 1 capsule by mouth once daily. traZODone (DESYREL) 50 mg tablet Take 1-2 tablets by mouth daily at bedtime. metFORMIN (GLUCOPHAGE) 500 mg tablet Take 1 tablet by mouth twice daily with meals. baclofen (LIORESAL) 10 mg tablet Take 10 mg by mouth three times daily as needed. Blood-Glucose Meter (FREESTYLE LITE METER) monitoring kit Test blood sugar(s) one times daily. Dx: Type 2 DM - Controlled E11.9 Insulin: No atorvastatin (LIPITOR) 80 mg tablet Take 1 tablet by mouth daily at bedtime. blood sugar diagnostic (BLOOD GLUCOSE TEST) test strip Test blood sugar(s) one times daily. Dx: Type 2 DM - Controlled E11.9 Insulin: No gabapentin (NEURONTIN) 300 mg capsule Take 1 capsule by mouth twice daily. Prescribed by pain management. aspirin, enteric coated (ASPIRIN, ENTERIC COATED) 81 mg EC tablet Take 1 tablet by mouth once daily. sucralfate (CARAFATE) 1 gram tablet Take 1 tablet before meals and at bedtime as needed linaclotide (LINZESS ORAL) Take 72 mcg by mouth once daily as needed. Lancets lancets Test blood sugar(s) one times daily. Dx: Type 2 DM - Controlled E11.9 Insulin: No albuterol HFA (VENTOLIN HFA) 90 mcg/actuation inhaler Inhale 2 Puffs as instructed every 4 hours as needed for Wheezing/Shortness of Breath. Current Facility-Administered Medications Medication Dose Route Frequency lactated ringers iv infusion 30 mL/hr INTRAVENOUS CONTINUOUS ALLERGIES: Adhesive Tape (Rosins), Contrast Dye, Fd And C Blue No.1, and Sertraline PERSONAL HISTORY: Social History Tobacco Use Smoking status: Former Years: 23 Types: Cigarettes Smokeless tobacco: Current Types: Chew Tobacco comments: One can a week. States only smoked occasionally years ago. Vaping Use Vaping Use: Never used Substance Use Topics Alcohol use: Not Currently Comment: rarely Drug use: Yes Types: Marijuana Comment: marijuana gummies FAMILY HISTORY: FAMILY HISTORY Problem Relation Age of Onset Diabetes Mother Hypertension Mother Heart Father emphysema Coronary Artery Disease Father Hypertension Father COPD Sister COPD Sister Hypertension Brother COPD Brother Emphysema Brother Heart Brother COPD Brother Diabetes Brother Emphysema Brother Coronary Artery Disease Brother COPD Brother Schizophrenia Son Paranoid other (disabilities) Son club foot REVIEW OF SYMPTOMS: The review of systems data was entered by the nurse and reviewed by me There are no exam notes on file for this visit. PHYSICAL EXAMINATION: General: The patient is 68 year old male, well nourished, well hydrated in no acute distress. The patient is oriented to time, place, and person. VITALS: Blood pressure 132/84, pulse 110, temperature 36.6 C (97.8 F), temperature source Temporal, resp. rate 22, weight 96.6 kg (212 lb 15.4 oz), SpO2 96%. Body mass index is 30.56 kg/m . HEENT: Normal cephalic, ataumatic, pupils are equally round, sclera are anicteric, mucous membranes are moist, oropharynx is clear. Neck has no masses, asymmetry or lymphadenopathy. Thyroid is unremarkable. Respiratory: Clear to auscultation and percussion. Normal respiratory excursion and pattern. Cardiac: Examination is regular rate and rhythm. Abdominal exam: Soft, tender epigastric, with no palpable masses. No hepatosplenomegaly. No palpable hernias. Rectal exam: exam deferred Extremities: no clubbing, cyanosis or edema. No adenopathy. Other: LABORATORY VALUES: As Noted RADIOLOGIC STUDIES: As Noted Assessment IMPRESSION: abd pain epigatric, weight loss PLAN: I plan to perform upper endoscopy. We discussed the risks and benefits [...] procedure. The patient freely consents to surgery. Diagnoses: (K21.01) Gastroesophageal reflux disease with esophagitis and hemorrhage (primary encounter diagnosis) (R10.13) Epigastric pain Return to Clinic: The patient is instructed to follow-up with me as needed. Ben Marshall III, MD documented in this encounter [facility] 09-28-2023 Note HNO ID: [id number] Author: LEROY ALCOCER MD Service: ? Author Type: Physician Type: Progress Notes Filed: 09/28/2023 08:29 Note Text: Called by patient's PCP Dr. Zonia Batista for increasing epigastric symptoms. Patient had prior upper endoscopy before his cholecystectomy which did demonstrate gastritis. Will plan for urgent upper endoscopy. [facility] 09-28-2023 History of Present illness Narrative Called by patient's PCP Dr. Zonia Batista for increasing epigastric symptoms. Patient had prior upper endoscopy before his cholecystectomy which did demonstrate gastritis. Will plan for urgent upper endoscopy. documented in this encounter [facility] 11-18-2022 Note HNO ID: [id number] Author: Edilia Walls PA-C Service: ? Author Type: Physician Curtain Cutter Hand Type: Progress Notes Filed: 11/22/2022 4:57 PM Note Text: FOLLOW UP VISIT - CHOLECYSTECTOMY NAME: Abdirizak Bates [facility] NO.: [id number] DATE OF SERVICE: 11/18/2022 : 1955 REFERRING [...] with me as needed. Edilia Walls PA-C [facility] 11-18-2022 Instructions Edilia Walls PA-C - 11/18/2022 10:01 AM EDT The following instructions are important for you related to your office visit today with the [facility] General Surgeons. INSTRUCTIONS FOLLOWING YOU RECENT [...] you should contact our office immediately @ [phone] and ask to be transferred to the General Surgery department. documented in this encounter [facility] 11-18-2022 History of Present illness Narrative FOLLOW UP VISIT - CHOLECYSTECTOMY NAME: Abdirizak Bates [facility] NO.: [id number] DATE OF SERVICE: 11/18/2022 : 1955 REFERRING [...] Edilia Walls PA-C documented in this encounter [facility] 11-18-2022 Nurse Note REVIEW OF SYSTEMS: General: [...] Clara Lira RN documented in this encounter [facility] 11-14-2022 Miscellaneous Notes Patient was evaluated at [facility] ER, CT scan of the abdomen and pelvis was completed. Diagnosed with back spasm. Carol Vega RN Called patient back to updated. Alethea stated that she called 911 and ambulance was there. Yes, agree with urgent ED evaluation for severe abdominal pain Patient called back, patient is yelling in pain, advised patient to go to ER. Alethea asked if [facility] would treat patient, informed them yes they will however Dr Alcocer is not at that hospital and is doing surgeries in [place] today. voiced understanding. Alethea # [phone] Abdirizak's , Alethea, called. Abdirizak had laparoscopic [...] of the pain. They use [facility] in [place]. Alethea also wanted us to know that they tried reaching out, over the weekend to the provider number that is on their discharge paperwork, but that number is to [facility] and the reserve operator refused to page Dr. Alcocer, stating that he does not work at their facility. I apologized to Alethea, stating that I would reach out and see who can update that paperwork and correct that error. Carol Vega RN documented in this encounter [facility] 11-11-2022 Note HNO ID: [id number] Author: Joni Crooks RN Service: Nursing Author Type: Registered Nurse Type: Nursing Progress Note Filed: 11/11/2022 12:59 PM Note Text: PT up to bathroom, ambulated with close supervision, tolerated well. 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 Copy made for Angela Norris CNP and original sent to scanning. Araceli Davis LPN Called and spoke with Katerina at [facility], she will fax last office visit and cardiac records. Araceli Davis LPN Received labs from Dr. Yousif's office. Copy made for Angela Norris CNP and original sent to [employer] through [employer]. Araceli Davis LPN Received a call from [facility] stating Dr. Mckeon office has moved and new phone number is [phone]. I called Dr. Mckeon new office and spoke with Katrina. Requested labs especially A1c to be faxed, fax number given. Araceli Davis LPN Called and left message at Dr. Mathews office requesting patients most recent labs especially A1c to be faxed. Callback number and fax number given. Araceli Davis LPN Called and left message with Katerina at [facility] to return call. Callback number given. Araceli Davis LPN Please request most recent labs, especially A1c from PCP's office. And cardiac records, last OV from [facility]. DOS 11/11/2022 documented in this encounter [facility] 11-04-2022 History and physical note HISTORY AND [...] fevers. Neurological: No history of TIA's, stroke, MINE GE[employer]IST tumor, impaired sensorium, hemiplegia, paraplegia or quadraplegia. No neurological symptoms or problems. Respiratory: Positive for: asthma and COPD. Negative for: pneumonia within 6 weeks, tobacco use, URI < 2 weeks and obstructive sleep apnea. Cardiovascular: Positive for: anticoagulation therapy (ASA), CAD, hyperlipidemia (on rx) and open heart surgery Negative for: arrhythmia, atrial fibrillation, chest pain, CHF, congenital heart defect, DVT/PE, hypertension, recent [place], murmur/valvular heart disease, PVD and valve surgery. [...] for: joint pain. Skin: +rosacea, following [facility] PAST MEDICAL HISTORY Diagnosis Date Asthma CAD [...] 06/16/2017 Added automatically from request for surgery [id number] Impaired fasting glucose 07/15/2016 Myalgia and myositis, [...] right RPR UMBILICAL HRNA 5 YRS/> REDUCIBLE 2004 with mesh SKIN BIOPSY HX SPINAL FUSION,ANT,EA [...] A1C Date Value 04/09/2019 Test sent to [facility]. % 11/05/2018 Test sent to [facility]. % 06/28/2018 Test sent to [facility]. % 07/17/2017 Test sent to [facility]. % 06/23/2016 Test sent to [facility]. % 06/23/2016 6.1 No results found for this or any previous visit (from the past 8760 hour(s)). No results found for this or any previous visit (from the past 86449 hour(s)). Assessment Patient has the following medical conditions which may affect nereida-operative course: Other hyperlipidemia Assessment: c/w statin CAD (coronary artery disease) Assessment: CABG x3, 2011, following [facility], daily ASA, denies CP, palpitations or SOB, [...] equal to 35 kg/m^2 STOP-Bang Score: 4 [id number] Score: Age: 65-74 Sex: male CHF history: No Hypertension history: Yes Stroke/TIA/thromboembolism history: No Vascular disease history: Yes Diabetes history: Yes [id number] Score: 4 ARISCAT Score: Age: 51-80 Preoperative [...] and consent discussed: yes. Patient / Responsible [employer] agrees to proceed: yes Patient / [...] AM PAGER/CONTACT #: documented in this encounter [facility] 11-04-2022 Instructions Angela Norris APRN.CNP - 11/04/2022 11:12 AM EDT PATIENT PREOPERATIVE INSTRUCTIONS No ref. provider found has scheduled you for your procedure at this surgery center: [facility]: [phone] -- [address] [address]. Please read below carefully for your personalized [...] Procedures: - YOU MUST HAVE A RESPONSIBLE CERTIFIED PHYSICIAN ASSISTANT TAKE YOU HOME. A JANITORIAL MANAGER OR EDUCATION GENERAL MANAGER CANNOT BE MADE A RESPONSIBLE CERTIFIED PHYSICIAN ASSISTANT. - We recommend that a responsible person [...] Advance Directive, please fax a copy to [phone] or email to for it to be [...] into your chart that day. Angela Norris APRN.DAMON documented in this encounter [facility] 10-21-2022 Note HNO ID: [id number] Author: Leroy Alcocer MD Service: ? Author [...] 06/16/2017 Added automatically from request for surgery [id number] Impaired fasting glucose 07/15/2016 Myalgia and myositis, [...] YRS/> REDUCIBLE 2 (more content not included)... [facility] 10-21-2022 History of Present illness Narrative [...] 06/16/2017 Added automatically from request for surgery [id number] Impaired fasting glucose 07/15/2016 Myalgia and myositis, [...] Procedure: LAPAROSCOPIC CHOLECYSTECTOMY WITH INTRAOPERATIVE CHOLEANGIOGRAM - [id number] Planned antibiotic: Ancef 2gm IVPB ammunition and explosives handler to OR SCDs needed - Yes Curtain Cutter Hand Needed - No Diagnoses: (K80.20) Calculus of gallbladder without cholecystitis without obstruction (primary encounter diagnosis) (R10.11) RUQ pain My findings have been communicated to via shared medical record. This note will be forwarded to No primary care provider on file.. Leroy Alcocer MD documented in this encounter [facility] 10-20-2022 Miscellaneous Notes Called and spoke to Linette [facility], CT scan dept. Pushed image per Dr Alcocer request. Lilliam Cota LPN documented in this encounter [facility] 10-07-2022 Note HNO ID: [id number] Author: Edilia Walls PA-C Service: ? Author Type: Physician Curtain Cutter Hand Type: Progress Notes Filed: 10/13/2022 2:07 PM Note Text: FOLLOW UP VISIT - ENDOSCOPY NAME: Abdirizak Ch [facility] NO.: [id number] DATE OF SERVICE: 10/07/2022 : 1955 REFERRING [...] which included preparing to see the patient, [id number] patient care, completing clinical documentation, obtaining and/or reviewing separately obtained history, counseling and educating the patient/family/caregiver, independently interpreting results (not separately reported), and communicating results to the patient/family/caregiver. Edilia Walls PA-C [facility] 10-07-2022 Instructions Edilia Walls PA-C - [...] to your office visit today with the [facility] General Surgeons. INSTRUCTIONS FOLLOWING A NORMAL [...] you should contact our office immediately @ [phone] and ask to be transferred to the General Surgery department. documented in this encounter [facility] 10-07-2022 History of Present illness Narrative FOLLOW UP VISIT - ENDOSCOPY NAME: Abdirizak Bates [facility] NO.: [id number] DATE OF SERVICE: 10/07/2022 : 1955 REFERRING [...] which included preparing to see the patient, [id number] patient care, completing clinical documentation, obtaining and/or reviewing separately obtained history, counseling and educating the patient/family/caregiver, independently interpreting results (not separately reported), and communicating results to the patient/family/caregiver. Edilia Walls PA-C documented in this encounter [facility] 09-27-2022 Nurse Note Oxygen applied at 2L [...] on left side. documented in this encounter [facility] 09-27-2022 History and physical note UPDATED PROCEDURAL [...] 06/16/2017 Added automatically from request for surgery [id number] Impaired fasting glucose 07/15/2016 Myalgia and myositis, [...] 1 distal transverse COLONOSCOP W/ OR W/O BRS SPEC 07/06/10 Normal COLONOSCOP W/ OR W/O [...] entered by the nurse and reviewed by ok Nursing Notes: Mel Alonso LPN 08/09/2022 1:45 [...] patient was offered a surgery/procedure at a [facility] facility. I have counseled the patient regarding [...] which included preparing to see the patient, [id number] patient care, completing clinical documentation, obtaining and/or reviewing separately obtained history, performing a medically appropriate examination, and care coordination (not separately reported). Eidlia Walls PA-C Images from the original note [...] 06/16/2017 Added automatically from request for surgery [id number] Impaired fasting glucose 07/15/2016 Myalgia and myositis, [...] SPEC 07/06/10 Normal COLONOSCOP W/ OR W/O [facility] SPEC 06/20/2017 Colonoscopy EGD W/O [facility] SPECIMEN W/BX 07/06/10 gastritis EGD W/O [facility] SPECIMEN W/BX 10/07/14 duodenitis, gastritis, esophagitis EGD W/O [facility] SPECIMEN W/BX 09/13/2016 continued inflammation HEMORRHOIDECT INTER/EXTER [...] entered by the nurse and reviewed by ok Nursing Notes: Mel Alonso LPN 08/09/2022 1:45 [...] patient was offered a surgery/procedure at a [facility] facility. I have counseled the patient regarding [...] which included preparing to see the patient, [id number] patient care, completing clinical documentation, obtaining and/or reviewing separately obtained history, performing a medically appropriate examination, and care coordination (not separately reported). Edilia Walls PA-C documented in this encounter [facility] 09-16-2022 Miscellaneous Notes EGD added to procedure Fela Ambriz Mess Attendant Pt calling to inform that Dr. Yousif had ordered EGD for pt. There is an order in [facility] from [facility]. Pt asking if that can be done the same day as the colonoscopy. Please contact patient to confirm date. Aspen Sainz documented in this encounter [facility] 09-16-2022 Miscellaneous Notes Called by patient's PCP Dr. Batista who also is having upper symptoms will add EGD and perform orosco biopsies. 09/27/2022 COLON ASC documented in this encounter [facility] 08-09-2022 Nurse Note REVIEW OF SYSTEMS: General: [...] Mel Alonso LPN documented in this encounter [facility] 08-09-2022 History of Present illness Narrative HISTORY AND PHYSICAL Abdirizak Jing Bates 1955 REFERRING PHYSICIAN: Edilia Walls PA-C [...] 06/16/2017 Added automatically from request for surgery [id number] Impaired fasting glucose 07/15/2016 Myalgia and myositis, [...] entered by the nurse and reviewed by ok Nursing Notes: Mel Alonso LPN 08/09/2022 1:45 [...] patient was offered a surgery/procedure at a [facility]. I have counseled the patient regarding the [...] which included preparing to see the patient, [id number] patient care, completing clinical documentation, obtaining and/or reviewing separately obtained history, performing a medically appropriate examination, and care coordination (not separately reported). Edilia Walls PA-C documented in this encounter [facility] documented as of this encounter (statuses as of 08/18/2022) [facility] History of Past illness Narrative* Problem Noted Date Resolved Date Hemorrhoids, internal 06/16/2017 01/15/2018 Overview: Added automatically from request for surgery [id number] Bright red rectal bleeding 06/16/201707/17 Overview: Added automatically from request for surgery [id number] History of colonic polyps 06/16/20172016 Overview: Added automatically from request for surgery [id number] Calculus of gallbladder with out cholecystitis without [...] Laboratory test 07/16/2012 11/04/2014 Overview: PSA done [facility] 07/06/2012 - 0.89 Pain in joint, shoulder region 04/06/2012 0 04/12/2016 GERD (gastroesophageal reflux disease) 0 07/17/2017 Diabetes mellitus 06/25/2010 09/04/2012 Headache(784.0) 10/30/2007 01/15/2018 Dysthymic disorder 07/17/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) Other malaise and fatigue 2015 Other specified disease of hair and hair follicl es 11/04/2014 documented as of this encounter (statuses as of 09/16/2022) [facility] History of Past illness Narrative* Problem Noted Date Resolved Date Hemorrhoids, internal 06/16/2017 01/15/2018 Overview: Added automatically from request for surgery [id number] Bright red rectal bleeding 06/16/201707/17 Overview: Added automatically from request for surgery [id number] History of colonic polyps 06/16/20172016 Overview: Added automatically from request for surgery [id number] Calculus of gallbladder with out cholecystitis without [...] Laboratory test 07/16/2012 11/04/2014 Overview: PSA done [facility] 07/06/2012 - 0.89 Pain in joint, shoulder region 04/06/2012 0 04/12/2016 GERD (gastroesophageal reflux disease) 0 07/17/2017 Diabetes mellitus 06/25/2010 09/04/2012 Headache(784.0) 10/30/2007 01/15/2018 Dysthymic disorder 07/17/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) Other malaise and fatigue 2015 Other specified disease of hair and hair follicl es 11/04/2014 documented as of this encounter (statuses as of 09/16/2022) [facility] History of Past illness Narrative* Problem Noted Date Resolved Date Hemorrhoids, internal 06/16/2017 01/15/2018 Overview: Added automatically from request for surgery [id number] Bright red rectal bleeding 06/16/201707/17 Overview: Added automatically from request for surgery [id number] History of colonic polyps 06/16/20172016 Overview: Added automatically from request for surgery [id number] Calculus of gallbladder with out cholecystitis without [...] Laboratory test 07/16/2012 11/04/2014 Overview: PSA done [facility] 07/06/2012 - 0.89 Pain in joint, shoulder region 04/06/2012 0 04/12/2016 GERD (gastroesophageal reflux disease) 0 07/17/2017 Diabetes mellitus 06/25/2010 09/04/2012 Headache(784.0) 10/30/2007 01/15/2018 Dysthymic disorder 07/17/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) Other malaise and fatigue 2015 Other specified disease of hair and hair follicl es 11/04/2014 documented as of this encounter (statuses as of 10/13/2022) [facility] History of Past illness Narrative* Problem Noted Date Resolved Date Hemorrhoids, internal 06/16/2017 01/15/2018 Overview: Added automatically from request for surgery [id number] Bright red rectal bleeding 06/16/201707/17 Overview: Added automatically from request for surgery [id number] History of colonic polyps 06/16/20172016 Overview: Added automatically from request for surgery [id number] Calculus of gallbladder with out cholecystitis without [...] Laboratory test 07/16/2012 11/04/2014 Overview: PSA done [facility] 07/06/2012 - 0.89 Pain in joint, shoulder region 04/06/2012 0 04/12/2016 GERD (gastroesophageal reflux disease) 0 07/17/2017 Diabetes mellitus 06/25/2010 09/04/2012 Headache(784.0) 10/30/2007 01/15/2018 Dysthymic disorder 07/17/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) Other malaise and fatigue 2015 Other specified disease of hair and hair follicl es 11/04/2014 documented as of this encounter (statuses as of 10/20/2022) [facility] History of Past illness Narrative* Problem Noted Date Resolved Date Hemorrhoids, internal 06/16/2017 01/15/2018 Overview: Added automatically from request for surgery [id number] Bright red rectal bleeding 06/16/201707/17 Overview: Added automatically from request for surgery [id number] History of colonic polyps 06/16/20172016 Overview: Added automatically from request for surgery [id number] Calculus of gallbladder with out cholecystitis without [...] Laboratory test 07/16/2012 11/04/2014 Overview: PSA done [facility] 07/06/2012 - 0.89 Pain in joint, shoulder region 04/06/2012 0 04/12/2016 GERD (gastroesophageal reflux disease) 0 07/17/2017 Diabetes mellitus 06/25/2010 09/04/2012 Headache(784.0) 10/30/2007 01/15/2018 Dysthymic disorder 07/17/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) Other malaise and fatigue 2015 Other specified disease of hair and hair follicl es 11/04/2014 documented as of this encounter (statuses as of 10/26/2022) [facility] History of Past illness Narrative* Problem Noted Date Resolved Date Hemorrhoids, internal 06/16/2017 01/15/2018 Overview: Added automatically from request for surgery [id number] Bright red rectal bleeding 06/16/201707/17 Overview: Added automatically from request for surgery [id number] History of colonic polyps 06/16/20172016 Overview: Added automatically from request for surgery [id number] Calculus of gallbladder with out cholecystitis without [...] Laboratory test 07/16/2012 11/04/2014 Overview: PSA done [facility] 07/06/2012 - 0.89 Pain in joint, shoulder region 04/06/2012 0 04/12/2016 GERD (gastroesophageal reflux disease) 0 07/17/2017 Diabetes mellitus 06/25/2010 09/04/2012 Headache(784.0) 10/30/2007 01/15/2018 Dysthymic disorder 07/17/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) Other malaise and fatigue 2015 Other specified disease of hair and hair follicl es 11/04/2014 documented as of this encounter (statuses as of 11/09/2022) [facility] History of Past illness Narrative* Problem Noted Date Resolved Date Hemorrhoids, internal 06/16/2017 01/15/2018 Overview: Added automatically from request for surgery [id number] Bright red rectal bleeding 06/16/201707/17 Overview: Added automatically from request for surgery [id number] History of colonic polyps 06/16/20172016 Overview: Added automatically from request for surgery [id number] Calculus of gallbladder with out cholecystitis without [...] Laboratory test 07/16/2012 11/04/2014 Overview: PSA done [facility] 07/06/2012 - 0.89 Pain in joint, shoulder region 04/06/2012 0 04/12/2016 GERD (gastroesophageal reflux disease) 0 07/17/2017 Diabetes mellitus 06/25/2010 09/04/2012 Headache(784.0) 10/30/2007 01/15/2018 Dysthymic disorder 07/17/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) Other malaise and fatigue 2015 Other specified disease of hair and hair follicl es 11/04/2014 documented as of this encounter (statuses as of 11/09/2022) [facility] History of Past illness Narrative* Problem Noted Date Resolved Date Hemorrhoids, internal 06/16/2017 01/15/2018 Overview: Added automatically from request for surgery [id number] Bright red rectal bleeding 06/16/201707/17 Overview: Added automatically from request for surgery [id number] History of colonic polyps 06/16/20172016 Overview: Added automatically from request for surgery [id number] Calculus of gallbladder with out cholecystitis without [...] Laboratory test 07/16/2012 11/04/2014 Overview: PSA done [facility] 07/06/2012 - 0.89 Pain in joint, shoulder region 04/06/2012 0 04/12/2016 GERD (gastroesophageal reflux disease) 0 07/17/2017 Diabetes mellitus 06/25/2010 09/04/2012 Headache(784.0) 10/30/2007 01/15/2018 Dysthymic disorder 07/17/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) Other malaise and fatigue 2015 Other specified disease of hair and hair follicl es 11/04/2014 documented as of this encounter (statuses as of 11/18/2022) [facility]2017 History of Past illness Narrative* Problem Noted Date Resolved Date Hemorrhoids, internal 06/16/2017 01/15/2018 Overview: Added automatically from request for surgery [id number] Bright red rectal bleeding 06/16/201707/17 Overview: Added automatically from request for surgery [id number] History of colonic polyps 06/16/20172016 Overview: Added automatically from request for surgery [id number] Calculus of gallbladder with out cholecystitis without [...] Laboratory test 07/16/2012 11/04/2014 Overview: PSA done [facility] 07/06/2012 - 0.89 Pain in joint, shoulder region 04/06/2012 0 04/12/2016 GERD (gastroesophageal reflux disease) 0 07/17/2017 Diabetes mellitus 06/25/2010 09/04/2012 Headache(784.0) 10/30/2007 01/15/2018 Dysthymic disorder 07/17/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) Other malaise and fatigue 2015 Other specified disease of hair and hair follicl es 11/04/2014 documented as of this encounter (statuses as of 11/23/2022) [facility]2017 History of Past illness Narrative* Problem Noted Date Diagnosed Date Resolved Date Hemorrhoids, internal 06/16/2017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: Added automatically from request for surgery [id number] Bright red rectal bleeding 06/16/2017 1 09/17/2016 Overview: Added automatically from request for surgery [id number] History of colonic polyps 06/16/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: Added automatically from request for surgery [id number] Calculus of gallbladder with out cholecystitis without [...] Laboratory test 07/16/2012 11/04/2014 Overview: PSA done [facility] 07/06/2012 - 0.89 Pain in joint, shoulder region 04/06/2012 04/12/2016 GERD (gastroesophageal reflux disease) 06/28/2010 07/17/2017 Diabetes mellitus 06/25/2010 09/04/2012 Headache(784.0) 10/30/2007 01/15/2018 Dysthymic disorder 7 Overview: Depression (non-psychotic) Other malaise and fatigue Other specified disease of h air and hair follicles 11/04/2014 documented as of this encounter (statuses as of 04/19/2023) [facility]2017 History of Past illness Narrative* Problem Noted Date Diagnosed Date Resolved Date Hemorrhoids, internal 06/16/2017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: Added automatically from request for surgery [id number] Bright red rectal bleeding 06/16/2017 1 09/17/2016 Overview: Added automatically from request for surgery [id number] History of colonic polyps 06/16/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: Added automatically from request for surgery [id number] Calculus of gallbladder with out cholecystitis without [...] Laboratory test 07/16/2012 11/04/2014 Overview: PSA done [facility] 07/06/2012 - 0.89 Pain in joint, shoulder region 04/06/2012 04/12/2016 GERD (gastroesophageal reflux disease) 06/28/2010 07/17/2017 Diabetes mellitus 06/25/2010 09/04/2012 Headache(784.0) 10/30/2007 01/15/2018 Dysthymic disorder 7 Overview: Depression (non-psychotic) Other malaise and fatigue Other specified disease of h air and hair follicles 11/04/2014 documented as of this encounter (statuses as of 06/18/2023) [facility]2017 History of Past illness Narrative* Problem Noted Date Diagnosed Date Resolved Date Hemorrhoids, internal 06/16/2017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: Added automatically from request for surgery [id number] Bright red rectal bleeding 06/16/2017 1 09/17/2016 Overview: Added automatically from request for surgery [id number] History of colonic polyps 06/16/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: Added automatically from request for surgery [id number] Calculus of gallbladder with out cholecystitis without [...] Laboratory test 07/16/2012 11/04/2014 Overview: PSA done [facility] 07/06/2012 - 0.89 Pain in joint, shoulder region 04/06/2012 04/12/2016 GERD (gastroesophageal reflux disease) 06/28/2010 07/17/2017 Diabetes mellitus 06/25/2010 09/04/2012 Headache(784.0) 10/30/2007 01/15/2018 Dysthymic disorder 7 Overview: Depression (non-psychotic) Other malaise and fatigue Other specified disease of h air and hair follicles 11/04/2014 documented as of this encounter (statuses as of 09/28/2023) [facility]2017 History of Past illness Narrative* Problem Noted Date Diagnosed Date Resolved Date Hemorrhoids, internal 06/16/2017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: Added automatically from request for surgery [id number] Bright red rectal bleeding 06/16/2017 1 09/17/2016 Overview: Added automatically from request for surgery [id number] History of colonic polyps 06/16/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: Added automatically from request for surgery [id number] Calculus of gallbladder with out cholecystitis without [...] Laboratory test 07/16/2012 11/04/2014 Overview: PSA done [facility] 07/06/2012 - 0.89 Pain in joint, shoulder region 04/06/2012 04/12/2016 GERD (gastroesophageal reflux disease) 06/28/2010 07/17/2017 Diabetes mellitus 06/25/2010 09/04/2012 Headache(784.0) 10/30/2007 01/15/2018 Dysthymic disorder 7 Overview: Depression (non-psychotic) Other malaise and fatigue Other specified disease of h air and hair follicles 11/04/2014 documented as of this encounter (statuses as of 10/12/2023) [facility] Encounter for screening for malignant neoplasm of colon- Primary Special screening for malignant neoplasms, colon Personal history of colonic polyps [facility] History of colonic polyps- Primary Personal history of colonic polyps Epigastric pain Abdominal pain, epigastric [facility] Diagnosis Diverticulosis- Primary Diverticulosis of colon (without mention of hemorrhage) History of colonic polyps Personal history of colonic polyps Gastritis and duodenitis Unspecified gastritis and gastroduodenitis without mention of hemorrhage [facility] Diagnosis Calculus of gallbladder without cholecystitis without obstruction- Primary Calculus of gallbladder without mention of cholecystitis or obstruction RUQ pain Abdominal pain, right upper quadrant [facility] Diagnosis Pre-operative examination- Primary Preoperative examination, unspecified Other hyperlipidemia Coronary artery disease involving [place] coronary artery of [place] heart without angina 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 documented in this encounter [facility] note* Diagnosis Calculus of gallbladder with chronic cholecystitis without obstruction- Primary Calculus of gallbladder with other cholecystitis, without mention of obstruction Back spasm Other symptoms referable to back documented in this encounter [facility] note* Diagnosis Gastroesophageal reflux disease with esophagitis, unspecified whether hemorrhage- Primary Constipation, unspecified constipation type History of colonic polyps Personal history of colonic polyps Epigastric pain Abdominal pain, epigastric documented in this encounter [facility] note* Diagnosis Epigastric pain- Primary Abdominal pain, epigastric documented in this encounter [facility] note* Diagnosis Gastroesophageal reflux disease with esophagitis and hemorrhage- Primary Epigastric pain Abdominal pain, epigastric documented in this encounter [facility] for referral (narrative)* Outpatient Procedure (Routine) - Pending Review Specialty Diagnoses / Procedures Referred By Jeffrey jacob Referred To Contact [facility] Diagnoses Epigastric pain Procedures EGD DIAGNOSTIC ESOPHAGOGASTRODUODENOSC OPY TRANSORAL DIAGNOSTIC Leroy Alcocer MD [address] [place] [address] [facility] [place] [place] [address] Referral ID Status Reason Start Date Expiration Date Visits Requested Visits Authorized [id number] Pending Review Auto-Generat ed Referral 09/16/2022 09/16/2023 1 1 * Outpatient Procedure (Routine) - Authorized Specialty Diagnoses / Procedures Referred By Jeffrey jacob Referred To Contact [facility] Diagnoses History of colonic polyps Procedures COLONOSCOPY SCREENING COLONOSCOPY FLX DX W/COLLJ SPEC WHEN PFRMD Edilia Walls PA-C [address] [place] [address] [address] [place] [place] [address] Referral ID Status Reason Start Date Expiration Date Visits Requested Visits Authorized [id number] Authorized Auto-Generat ed Referral 08/09/2023 1 1 [facility] for referral (narrative)* Outpatient Procedure (Routine) - Closed Specialty Diagnoses / Procedures Referred By Jeffrey t Referred To Contact [facility] Diagnoses Epigastric pain Procedures EGD DIAGNOSTIC ESOPHAGOGASTRODUODENOSC OPY TRANSORAL DIAGNOSTIC Leroy Alcocer MD [address] [facility] [place] [address] [facility] [address] [address] Referral ID Status Reason Start Date Expiration Date V isits Requested Visits Authorized [id number] Closed Auto-Generate d Referral 09/16/2022 09/16/2023 1 1 * Outpatient Procedure (Routine) - Closed Specialty Diagnoses / Procedures Referred By Jeffrey jacob Referred To Contact [facility] Diagnoses History of colonic polyps Procedures COLONOSCOPY SCREENING COLONOSCOPY FLX DX W/COLLJ SPEC WHEN PFRMEdilia Khan PA-C [address] [place] [address]. [place] [address] [facility] [address] [address] Referral ID Status Reason Start Date Expiration Date V isits Requested Visits Authorized [id number] Closed Auto-Generate d Referral 08/09/2022 08/09/2023 1 1 [facility] for referral (narrative)* Outpatient Procedure (Routine) - Authorized Specialty Diagnoses / Procedures Referred By Jeffrey t Referred To Contact [facility] Diagnoses Epigastric pain Procedures EGD DIAGNOSTIC ESOPHAGOGASTRODUODENOS COPY TRANSORAL DIAGNOSTIC Leroy Alcocer MD [address] [address] [facility] [place] [address] [place] [address] Referral ID Status Reason Start Date Expiration Date Visits Requested Visits Authorized [id number] Authorized Auto-Generat ed Referral 09/28/2023 09/28/2024 1 1 [facility] for referral (narrative)* Outpatient Procedure (Routine) - Closed Specialty Diagnoses / Procedures Referred By Jeffrey jacob Referred To Contact [facility] Diagnoses Epigastric pain Procedures EGD DIAGNOSTIC ESOPHAGOGASTRODUODENOS COPY TRANSORAL DIAGNOSTIC Leroy Alcocer MD [address] [address] [facility] [address] [address] Referral ID Status Reason Start Date Expiration Date V isits Requested Visits Authorized [id number] Closed Auto-Generate d Referral 09/28/2023 09/28/2024 1 1 [facility] for visit Narrative* Outpatient Procedure (Routine) - Closed Specialty Diagnoses / Procedures Referred By Jeffrey jacob Referred To Contact [facility] Diagnoses Epigastric pain Procedures EGD DIAGNOSTIC ESOPHAGOGASTRODUODENOSC OPY TRANSORAL DIAGNOSTIC Leroy Alcocer MD [address] [place] [address] [facility] [address] [address] Referral ID Status Reason Start Date Expiration Date V isits Requested Visits Authorized [id number] Closed Auto-Generate d Referral 09/16/2022 09/16/2023 1 1 [facility] for visit Narrative* Outpatient Procedure (Routine) - Closed Specialty Diagnoses / Procedures Referred By Jeffrey jacob Referred To Contact [facility] Diagnoses Epigastric pain Procedures EGD DIAGNOSTIC ESOPHAGOGASTRODUODENOS COPY TRANSORAL DIAGNOSTIC Leroy Alcocer MD [address] [address] [facility] [address] [address] Referral ID Status Reason Start Date Expiration Date V isits Requested Visits Authorized [id number] Closed Auto-Generate d Referral 09/28/2023 09/28/2024 1 1 [facility] Summary Purpose Family History No Family History [...] Date Dose Rate Site benzocaine 20% 1 [place] (TOPEX) 1 [place], TOPICAL, DIRECTED, Starting on Mon09/27/22 at 1000, [...] DATE CREATED AUTHOR AUTHOR'S ORGANIZ ATION 11/16/2022 [facility] DATE CREATED AUTHOR AUTHOR'S ORGANIZ ATION 09/29/2023 [facility] Source Comments (unrecognize d section and content) In the event this informatio n is protected by the Federal Confidentiality of Alcohol and Drug Abuse Patient Records regulations: The Federal rules restrict any use of the information to criminally investigate or prosecute any alcohol or drug abuse patient.[facility] the event this information is protected by the Federal Confidentiality of Alcohol and Drug Abuse Patient Records regulations: The Federal rules restrict any use of the information to criminally investigate or prosecute any alcohol or drug abuse patient.[facility] the event this information is protected by the Federal Confidentiality of Alcohol and Drug Abuse Patient Records regulations: The Federal rules restrict any use of the information to criminally investigate or prosecute any alcohol or drug abuse patient.[facility] the event this information is protected by the Federal Confidentiality of Alcohol and Drug Abuse Patient Records regulations: The Federal rules restrict any use of the information to criminally investigate or prosecute any alcohol or drug abuse patient.[facility] the event this information is protected by the Federal Confidentiality of Alcohol and Drug Abuse Patient Records regulations: The Federal rules restrict any use of the information to criminally investigate or prosecute any alcohol or drug abuse patient.[facility] the event this information is protected by the Federal Confidentiality of Alcohol and Drug Abuse Patient Records regulations: The Federal rules restrict any use of the information to criminally investigate or prosecute any alcohol or drug abuse patient.[facility] the event this information is protected by the Federal Confidentiality of Alcohol and Drug Abuse Patient Records regulations: The Federal rules restrict any use of the information to criminally investigate or prosecute any alcohol or drug abuse patient.[facility] the event this information is protected by the Federal Confidentiality of Alcohol and Drug Abuse Patient Records regulations: The Federal rules restrict any use of the information to criminally investigate or prosecute any alcohol or drug abuse patient.[facility] the event this information is protected by the Federal Confidentiality of Alcohol and Drug Abuse Patient Records regulations: The Federal rules restrict any use of the information to criminally investigate or prosecute any alcohol or drug abuse patient.[facility] the event this information is protected by the Federal Confidentiality of Alcohol and Drug Abuse Patient Records regulations: The Federal rules restrict any use of the information to criminally investigate or prosecute any alcohol or drug abuse patient.[facility] the event this information is protected by the Federal Confidentiality of Alcohol and Drug Abuse Patient Records regulations: The Federal rules restrict any use of the information to criminally investigate or prosecute any alcohol or drug abuse patient.[facility] the event this information is protected by the Federal Confidentiality of Alcohol and Drug Abuse Patient Records regulations: The Federal rules restrict any use of the information to criminally investigate or prosecute any alcohol or drug abuse patient.[facility] the event this information is protected by the Federal Confidentiality of Alcohol and Drug Abuse Patient Records regulations: The Federal rules restrict any use of the information to criminally investigate or prosecute any alcohol or drug abuse patient.[facility] the event this information is protected by the Federal Confidentiality of Alcohol and Drug Abuse Patient Records regulations: The Federal rules restrict any use of the information to criminally investigate or prosecute any alcohol or drug abuse patient.[facility] Reason for Visit (unrecogniz ed section and content) Reason Comments 09/27/2022 colon asc Patient Update Reason Comments Add EGD Reason Comments Follow Up colonoscopy Reason Comments Results CT scan from [facility] Reason Comments Abdominal Pain Reason Comments Consult Reason Comments Request Outside Medical Records Reason Comments Post op complications Reason Comments Post Op Lap chioma Reason Onset Date Comments Refill Request 04/18/2023 Care Teams (unrecognized sec tion and content) Meter/Relay Craftsman Relationship Specialty Start Date End Date Marshall Yousif MD [address] [place], [place] [phone] PCP - General Internal Medicine 10/31/22 Meter/Relay Craftsman Relationship Specialty Start Date End Date Marshall Yousif MD [address] [place], [place] [phone] PCP - General Internal Medicine 10/31/22 Meter/Relay Craftsman Relationship Specialty Start Date End Date Marshall Yousif MD [address] [place], [place] [id number] PCP - General Internal Medicine 10/31/22 Meter/Relay Craftsman Relationship Specialty Start Date End Date Marshall Yousif MD [address] [place], [place] [address] 105- PCP - General Internal Medicine 10/31/22 Meter/Relay Craftsman Relationship Specialty Start Date End Date Marshall Yousif MD [address] [place], [place] [id number] PCP - General Internal Medicine 10/31/22 Meter/Relay Craftsman Relationship Specialty Start Date End Date Marshall Yousif MD [address] [place], [place] [id number]- PCP - General Internal Medicine 10/31/22 Inactive Administered Medications - up to 3 most recent administrations Administered Medications (un recognized section and content) FOR RECORDS PERTAINING TO PATIENTS WHO ARE [...] BE BASED ON THE PRIMARY CLINICAL RECORDS. [employer] [facility] provides no warranty or guarantee of the accuracy or completeness of information in this document.
[2023-10-21] MEDS: 0.9% Normal Saline (1000mL) 1,000 ML 100 ML IV ×2 (18:16→22:40)
[2023-10-21 18:32] LABS: Bacteria 0 SEEN /hpf (None Seen); Mucous, Urine 0 SEEN /hpf (<or=2+); Red Blood Cells-Urine 0 SEEN /hpf (0-5); Squamous Epithelial Cells - UA 0 SEEN /hpf (0-5)
[2023-10-21 18:33] LABS: Color, Urine Yellow (Yellow); Glucose, Dipstick 50 mg/dl (Normal); Ketone-Dipstick 15 mg/dl (Negative); Leukocyte Esterase-Dipstick 25 /ul (Negative); Nitrite-Dipstick Negative (Negative); Occult Blood-Urine 25 /ul (Negative); Protein-Dipstick 30 mg/dl (Negative); Urine Bilirubin Dipstick Negative (Negative); Urine Clarity Clear (Clear); Urine Urobilinogen Normal (Normal)
[2023-10-21 18:50] LABS: White Blood Cells 0-5 SEEN /hpf (0-5)
[2023-10-21 18:59] LABS: Ammonia < 10.0 umol/L (11-32)
--- NOTE | 2023-10-21 19:24 | PCM.HP.STD ---
HPI - General General Date of Admission: 10/21/23 Date of Service: 10/21/23 Chief Complaint: Expressive aphasia. HPI Narrative The patient is a 68 y/o M w/ PMHx: Asthma, CAD s/p CABG, BPH, RLS, Tobacco use, Chronic back pain with radidulopathy s/p prior surgical intervention, Diabetes mellitus type II with chronic neuropathy who presents to the [facility] ED on 10/21/2023 as a stroke alert via EMS with last known well per the ~ 2 days prior to unclear time however he had been today more confused and having a difficult time expressing himself over the last 2 days with no recent headache and ability to follow commands prompting eventual ED evaluation. Workup in the ED included T98, heart rate 82, BP 136/82, respiratory rate 16, 98% on room air with most recent repeat vital signs heart rate 79, BP 123/73, respiratory rate 16, 97% on room air, CBC with WBC 10.3, human 13.1, platelet 343 without marked shift, unremarkable coags, BMP with sodium 131, potassium 3.2, chloride 97, BUN/creatinine 24/0.84, glucose 131, troponin 28, ammonia less than 10, urinalysis not marked appearing with no obvious evidence of UTI, CT of the brain with chronic age-related changes with no acute intracranial findings otherwise, chest x-ray with no acute cardiopulmonary findings, CTA head and neck with no acute abnormality, no large vessel occlusion, mild grade stenosis of the right ICA with less than 50% cross-sectional diameter stenosis noted, EKG was sinus rhythm with no acute evidence of ischemia. In the ED NIHSS scored 2. In the ED patient placed on maintenance IV fluids. [facility] Medical History (Updated 10/21/23 @ 20:[address] Sara Reaves MD) Agent orange exposure Alcohol use Ambulates with cane Arthritis Arthropathy of cervical facet joint Asthma Atherosclerotic heart disease of [place] coronary artery without angina pectoris Back pain Bilirubinuria Cancer Cardiology follow-up encounter Cervical spondylosis Chondromalacia of both patellae Chondromalacia, left knee Chondromalacia, right knee Contact with or exposure to other viral diseases COVID-19 virus detected (11/19/20) Degeneration of cervical disc without myelopathy Degeneration of intervertebral disc of lumbosacral region Diabetes Fusion of spine, cervical region High cholesterol (~08/21/23) History of echocardiogram History of IBS History of pain when walking History of steroid therapy History of stress test Hyperlipemia Injury of head and neck Left knee DJD Nonrheumatic aortic (valve) stenosis with insufficiency Obesity Opioid dependence Prostate disease Radiculopathy of lumbosacral region Restless legs Right knee DJD Shortness of breath on exertion Smokeless tobacco use Spinal stenosis of lumbosacral region Spondylosis of lumbosacral region without myelopathy or radiculopathy Syncope Tear of medial meniscus of right knee Type 2 diabetes mellitus Wears hearing aid Home Medications aspirin 81 mg tablet,delayed release 81 mg PO DAILY HEART HEALTH 12/23/15 [History Last Taken 07/11/23] multivitamin 1 tab PO DAILY 07/09/19 [History Last Taken 07/17/23 06:00] baclofen 10 mg tablet 10 mg PO PRN PRN Muscle Spasm 05/14/20 [History Last Taken 07/17/23 18:00] gabapentin 100 mg capsule 200 mg PO TID 05/14/20 [History Last Taken 07/17/23 18:00] naproxen sodium 220 mg capsule (Aleve) 220 mg PO BID PRN Pain 02/04/22 [History Last Taken 07/17/23 18:00] albuterol sulfate 90 mcg/actuation aerosol inhaler 1 - 2 puff inhalation Q4H PRN PRN Wheezing #8.5 grams 04/21/22 [Rx Last Taken Unknown] handicap placard #1 ea 04/21/22 [Rx Last Taken Unknown] blood sugar diagnostic (FreeStyle Lite Strips) #100 ea 09/15/22 [Rx Last Taken Unknown] blood-glucose meter (FreeStyle Lite Meter kit) #1 ea 09/15/22 [Rx Last Taken Unknown] fluticasone propionate 50 mcg/actuation nasal spray,suspension 1 - 2 spray intranasal BID PRN allergies, congestion #16 grams 04/27/23 [Rx Last Taken 07/18/23 03:00] metformin 500 mg tablet 500 mg PO BID DIABETES #180 tabs 04/27/23 [Rx Last Taken 07/17/23 18:00] linaclotide 72 mcg capsule 72 mcg PO DAILY IBS #90 caps 06/27/23 [Rx Last Taken 07/17/23 06:00] acetaminophen 500 mg capsule 1,000 mg PO Q6H PRN pain 07/18/23 [History Last Taken 07/17/23 18:00] atorvastatin 40 mg tablet 40 mg PO QHS CHOLESTEROL #90 tabs 08/21/23 [Rx Last Taken Unknown] medical marijuana card PO 08/21/23 [History Last Taken Unknown] omeprazole 40 mg capsule,delayed release 40 mg PO DAILY PRN Reflux #30 caps 08/21/23 [Rx Last Taken Unknown] tamsulosin 0.4 mg capsule 0.4 mg PO QHS #30 caps 08/21/23 [Rx Last Taken Unknown] trazodone 50 mg tablet 50 - 100 mg (1 - 2 x 50 mg) PO QHS sleep #90 tabs 08/21/23 [Rx Last Taken Unknown] sucralfate 1 gram tablet (Carafate) 1 g PO QACHS #30 tabs 09/27/23 [Rx Last Taken Unknown] metoclopramide HCl 10 mg tablet (Reglan) 10 mg PO Q8H PRN PRN nausea and vomiting #14 tabs 10/01/23 [Rx Last Taken Unknown] ondansetron 4 mg disintegrating tablet 4 mg PO Q6H PRN nausea and vomiting #20 tabs 10/03/23 [Rx Last Taken Unknown] Allergy/AdvReac Type Severity Reaction Status Date / Time adhesive tape Allergy Rash Verified 10/21/23 17:52 sertraline [From Zoloft] AdvReac Unknown Verified 10/21/23 17:52 Family History (Updated 10/21/23 @ 20:[address] Sara Reaves MD) Brother Heart disease Myocardial infarction 60's CAD (coronary artery disease) Father Myocardial infarction 65 CAD (coronary artery disease) Mother HLD (hyperlipidemia) when son was 16 following MVA, healthy aside HLD. Surgical History H/O cervical spine surgery (08/2020) H/O coronary artery bypass surgery (09/14/11) History of back surgery History of carpal tunnel release History of herniorrhaphy History of lateral meniscus repair of right knee (~2021) History of left heart catheterization (09/09/11) Hx laparoscopic cholecystectomy (~11/2022) Hx of bilateral cataract extraction Status post discectomy for herniated nucleus pulposus Social History (Updated 10/21/23 @ 20:[address] Sara Reaves MD) household members: spouse Smoking Status: Never smoker Smokeless tobacco user: chewing tobacco alcohol intake: current alcohol intake frequency: a few times a month substance use type: does not use caffeine: Yes Type: coffee Number of servings: 2 ROS Review of Systems ROS Unobtainable: other Details: Cannot given ROS secondary to notable expressive aphasia presentation. Vital Signs Vital Signs Vital Signs: 10/21/23 17:37 10/21/23 17:41 10/21/23 17:48 Temperature 98.0 F Temperature Source Oral Pulse Rate 82 82 Respiratory Rate 16 15 Blood Pressure 136/82 H 136/73 H Blood Pressure Mean 100 94 Pulse Ox 98 96 Oxygen Delivery Method Room Air Room Air Room Air 10/21/23 18:17 10/21/23 19:15 Temperature Temperature Source Pulse Rate 81 79 Respiratory Rate 17 16 Blood Pressure 131/86 H 123/73 H Blood Pressure Mean 101 89 Pulse Ox 97 97 Oxygen Delivery Method Room Air Room Air Weight Weight: 189 lb Body Mass Index (BMI) 27.1 Physical Exam Narrative Physical Examination: General: Awake, alert, notable difficulty with orientation questions with significant dysarthria and expressive aphasia, still following commands, cooperative, seated upright in the ED bed, anxious appearing. Skin: Normal color, normal turgor, no icterus, no cyanosis except occasional staged ecchymoses. HEENT: AT/NC, EOMI, PERRLA, mildly dry MM, poor dentition, no carotid bruits or JVD noted. Lungs: Mildly diminished, greater bases, appropriate effort, no rales, ronchi or wheezing. Heart: Regular rate and rhythm; no gallop, rub audible. Abdomen: Soft, overweight, NTTP, ND, mildly hyperactive BS, no appreciated HSM. Extremities: No cyanosis, clubbing, or edema. Neurological: Patient awake, alert, oriented as noted, cognitive function unfortunately difficult to assess given expressive aphasia and dysarthria, following commands appropriately thus do suspect cognitively likely baseline but unable to discern, pupils equally reactive to light and accommodation, cranial nerves grossly normal, moving all 4 extremities, no focal deficits, strength, finger-nose and [id number] appropriate, sensation intact, equivocal Babinski Psychiatric: Affect appears fatigued, anxious as expected, no evidence of depressive feelings. Results Lab / Micro Data 10/21/23 16:52 10/21/23 16:52 Labs: Laboratory Results - last 24 hr 10/21/23 16:52: WBC 10.3, RBC 4.60, Hgb 13.1, Hct 39.1 L, MCV 85.0, MCH 28.5, MCHC 33.5, RDW Std Deviation 41.1, RDW Coeff of Frankie 13.3, Plt Count 343, MPV 8.1, Immature Gran % (Auto) 0.400, Neut % (Auto) 69.6, Lymph % (Auto) 20.2, [place] % (Auto) 9.6, Eos % (Auto) 0.0, Baso % (Auto) 0.2, Absolute Neuts (auto) 7.2, Absolute Lymphs (auto) 2.09, Nucleated RBC % 0, PT 13.7, INR 1.1, APTT 26.6, Sodium 131 L, Potassium 3.2 L, Chloride 97 L, Carbon Dioxide 26.0, Anion Gap 8, BUN 24 H, Creatinine 0.84, Estim Creat Clear Calc 84.49, Est GFR (MDRD) Af Amer 116, Est GFR (MDRD) Non-Af 96, BUN/Creatinine Ratio 28.5 H, Glucose 131 H, Calcium 9.5, Troponin I High Sens 28 10/21/23 18:25: Urine Color Yellow, Urine Clarity Clear, Urine pH 7.0, Ur Specific [place] 1.010, Urine Protein 30 H, Urine Glucose (UA) 50 H, Urine Ketones 15 H, Urine Occult Blood 25 H, Urine Nitrite Negative, Urine Bilirubin Negative, Urine Urobilinogen Normal, Ur Leukocyte Esterase 25 H, Urine RBC 0 SEEN, Urine WBC 0-5 SEEN, Ur Squamous Epith Cells 0 SEEN, Urine Bacteria 0 SEEN, Urine Mucus 0 SEEN 10/21/23 18:27: Ammonia < 10.0 L Imaging Radiology Impression Brain CT 10/21/23 17:19 IMPRESSION: Chronic age related changes and atrophy. No acute abnormality or significant change. Electronically Signed: Toribio Giraldo MD at 17:34 EST , ADDENDUM: 10/21/23 1746 IMPRESSION: Chronic age related changes and atrophy. No acute abnormality or significant change. N.B. : The above Results were Read Back by Toribio Giraldo MD to Kayli Granados DO, and understanding confirmed on 10/21/2023 17:39:16 (ET). Electronically Signed: Toribio Giraldo MD at 17:34 EST , Head/Neck CTA 10/21/23 17:19 IMPRESSION: No acute abnormality. No large vessel occlusions. 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 Electronically Signed: Toribio Giraldo MD at 17:49 EST , ADDENDUM: 10/21/23 1758 IMPRESSION: No acute abnormality. No large vessel occlusions. 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 N.B. : The above Results were Read Back by Toribio Giraldo MD to Kayli Granados DO, and understanding confirmed on 10/21/2023 17:51:20 (ET). Electronically Signed: Toribio Giraldo MD at 17:49 EST , Chest X-Ray 10/21/23 18:05 IMPRESSION: No definite acute or significant abnormality seen. Electronically Signed: Toribio Giraldo MD at 19:00 EST , Assessment & Plan Assessment/Plan (1) Acute CVA (cerebrovascular accident): PLAN: Plan The patient is a 68 y/o M w/ PMHx: Asthma, CAD s/p CABG, BPH, RLS, Tobacco use, Chronic back pain with radidulopathy s/p prior surgical intervention, Diabetes mellitus type II with chronic neuropathy who presents to the [facility] ED on 10/21/2023 as a stroke alert via EMS with last known well per the ~ 2 days prior to unclear time however he had been today more confused and having a difficult time expressing himself over the last 2 days with no recent headache and ability to follow commands prompting eventual ED evaluation. #1. Expressive aphasia, dysarthria concerning for CVA with noted mild grade stenosis of the right ICA less than 50%: Will admit to PCU, will obtain MRI Brain, will obtain follow-up carotid ultrasound to further assess right ICA to assist in outpatient follow-up, ECHO, PT/OT/Speech/Nutrition evaluation per protocol. Will allow permissive HTN although no history and not on regimen, maintain on asa/add plavix pending neurology evaluation, change to high dose statin w/ AM FLP, fall precautions. Mag, TSH, FLP, HgbA1c requested. Maintain on fall and aspiration precautions. Maintain Neurology consultation. #2. Hyponatremia, mild, possibly mild hypovolemic component: Admission BMP with sodium 131, chloride 97, will continue to hydration with repeat CMP in AM. #3. Hypokalemia: Admission K+ 3.2, magnesium level requested, supplementation given, repeat level in AM. #4. Chronic asthma: Per current list not on inhalers,PRN albuterol, HOB, IS parameters. #5. CAD: Status post CABG x 3, will continue aspirin, changed to high-dose statin, per current list does not appear to be on any beta-jey or PAMELLA inhibitor/ARB but there is also no reported history of hypertensive disease, will closely monitor and add if appropriate once off permissive hypertension concept otherwise may defer to outpatient. #6. Chronic back pain with radiculopathy: Status post prior surgical intervention, maintain on fall precautions, will continue patient chronic gabapentin regimen, if necessary may cautiously use patient's baclofen regimen however would like to avoid sedation given acute presentation and need for constant evaluation. #7. Diabetes mellitus type II with chronic neuropathy: Hold oral home regimen, hemoglobin A1c requested, nutrition consulted for education and teaching given presentation ADA diet, accu checks w/ ISS, continue patient home chronic gabapentin regimen. #8. Hyperlipidemia: Changing to high-dose statin regimen. AM FLP. #9. GERD: Will continue patient home PPI and sucralfate regimen. #10. BPH: We will continue patient on Flomax regimen. #11. Tobacco Abuse: Encouraged to tobacco cessation, inpatient consultation per RT, NR if desired. Patient usually uses 1 can every 3 to 4 days. #12. Restless leg syndrome: On a regimen, if necessary may add Requip #13. DVT prophylaxis: Lovenox. #14. CODE status: Patient HCPOA is his was present and living will is currently in place. Discussed CODE status at length including difference between FULL code, DNR-CCA and DNR-CC status. Following discussions about the differences in these status, requested Full Code status. Advanced Care Planning Face to Face Time: 16 minutes. Charges/Coding Visit Charges Inpatient E&M: 73917 Init Hosp L3 Procedures Hospitalists Procedures: 14635 Advncd Care Plan 30 Min
--- OUTSIDE RECORDS SUMMARY | 2023-10-21 19:44 | XMS RPT_ITS | CCD ---
Author Name Unknown Address [address] [place] [address] Organization [facility] Care Team Providers Care Packaging Associate Name Role Phone HOLLY COHEN Unavailable Unavailable [...] Propensity to adverse reactions (disorder) [address] [facility] (18 sources) Contrast media; Translations: [CONTRAST DYE] Propensity to adverse reactions (disorder) 9 [facility] (2 sources) cortisone; Translations: [CORTISONE] Drug Allergy 4 [facility] (18 sources) sertraline; Translations: [SERTRALINE] Drug Allergy 4 [facility] (18 sources) FD AND C BLUE NO.1; Translations: [FD AND C BLUE NO.1] Propensity to adverse reactions (disorder) 9 [facility] Medications Completed/Discontinued Medications Medication Drug [...] disease (16 sources) Atherosclerotic heart disease of [place] coronary artery without angina pectoris; Translations: [Coronary [...] 72 mm[Hg] Ben Marshall MD Work Phone: [facility] 10-11-2023 09:18-0500 Heart rate 82 /min Ben Marshall MD Work Phone: [facility] 10-11-2023 09:18-0500 Respiratory rate 16 /min Ben Marshall MD Work Phone: [facility] 10-11-2023 09:18-0500 SaO2% (BldA) [Mass fraction] 97 % Ben Marshall MD Work Phone: [facility] 10-11-2023 09:18-0500 Systolic blood pressure 108 mm[Hg] Ben Marshall MD Work Phone: [facility] 10-11-2023 08:08-0500 Body temperature 97.81 [degF] Ben Marshall MD Work Phone: [facility] 10-11-2023 08:08-0500 Body weight 96.6 kg Ben Marshall MD Work Phone: [facility] 11-18-2022 09:25-0400 Body height 177.8 cm Edilia Walls PA-C Work Phone: [facility] 11-18-2022 09:25-0400 Body temperature 98.01 [degF] Edilia Walls PA-C Work Phone: [facility] 11-18-2022 09:25-0400 Body weight 96.62 kg Edilia Walls PA-C Work Phone: [facility] 11-18-2022 09:25-0400 Diastolic blood pressure 78 mm[Hg] Edilia San [place] Ii PA-C Work Phone: [facility] 11-18-2022 09:25-0400 Heart rate 89 /min Edilia Titi PA-C Work Phone: [facility] 11-18-2022 09:25-0400 SaO2% (BldA) [Mass fraction] 95 % Edilia Titi PA-C Work Phone: [facility] 11-18-2022 09:25-0400 Systolic blood pressure 140 mm[Hg] Edilia [place] Ii PA-C Work Phone: [facility] 11-04-2022 11:02-0400 Body height 177.8 cm Pacc 1 Work Phone: [facility] 11-04-2022 11:02-0400 Body temperature 98.2 [degF] Pacc 1 Work Phone: [facility] 11-04-2022 11:02-0400 Body weight 99.34 kg Pacc 1 Work Phone: [facility] 11-04-2022 11:02-0400 Diastolic blood pressure 82 mm[Hg] Pacc 1 Work Phone: [facility] 11-04-2022 11:02-0400 Heart rate 69 /min Pacc 1 Work Phone: [facility] 11-04-2022 11:02-0400 Respiratory rate 14 /min Pacc 1 Work Phone: [facility] 11-04-2022 11:02-0400 SaO2% (BldA) [Mass fraction] 97 % Pacc 1 Work Phone: [facility] 11-04-2022 11:02-0400 Systolic blood pressure 132 mm[Hg] Pacc 1 Work Phone: [facility] 10-20-2022 08:49-0500 Body height 177.8 cm Leroy Alcocer MD Work Phone: [facility] 10-20-2022 08:49-0500 Body temperature 97.9 [degF] Leroy Alcocer MD Work Phone: [facility] 10-20-2022 08:49-0500 Body weight 100.25 kg Leroy Alcocer MD Work Phone: [facility] 10-20-2022 08:49-0500 Diastolic blood pressure 78 mm[Hg] Leroy Alcocer MD Work Phone: [facility] 10-20-2022 08:49-0500 Heart rate 80 /min Leroy Alcocer MD Work Phone: [facility] 10-20-2022 08:49-0500 Respiratory rate 12 /min Leroy Alcocer MD Work Phone: [facility] 10-20-2022 08:49-0500 SaO2% (BldA) [Mass fraction] 96 % Leroy Alcocer MD Work Phone: [facility] 10-20-2022 08:49-0500 Systolic blood pressure 122 mm[Hg] Leroy Alcocer MD Work Phone: [facility] 10-07-2022 15:25-0500 Body temperature 97.9 [degF] Edilia Titi PA-C Work Phone: [facility] 10-07-2022 15:25-0500 Diastolic blood pressure 88 mm[Hg] Edilia [place] I[place] PA-C Work Phone: [facility] 10-07-2022 15:25-0500 Heart rate 82 /min Edilia [place] Ii PA-C Work Phone: [facility] 10-07-2022 15:25-0500 SaO2% (BldA) [Mass fraction] 95 % Edilia [place] Ii PA-C Work Phone: [facility] 10-07-2022 15:25-0500 Systolic blood pressure 112 mm[Hg] Edilia [place] Ii PA-C Work Phone: [facility] 09-27-2022 11:00-0500 Diastolic blood pressure 67 mm[Hg] Leroy Alcocer MD Work Phone: [facility] 09-27-2022 11:00-0500 Heart rate 67 /min Leroy Alcocer MD Work Phone: [facility] 09-27-2022 11:00-0500 Respiratory rate 16 /min Leroy Alcocer MD Work Phone: [facility] 09-27-2022 11:00-0500 SaO2% (BldA) [Mass fraction] 93 % Leroy Alcocer MD Work Phone: [facility] 09-27-2022 11:00-0500 Systolic blood pressure 149 mm[Hg] Leroy Alcocer MD Work Phone: [facility] 09-27-2022 07:58-0500 Body temperature 97.39 [degF] Leroy Alcocer MD Work Phone: [facility] 09-27-2022 07:58-0500 Body weight 100.1 kg Leroy Alcocer MD Work Phone: [facility] 08-09-2022 13:11-0500 Body height 177.8 cm Edilia Titi PA-C Work Phone: [facility] 08-09-2022 13:11-0500 Body temperature 97.2 [degF] Edilia San [place] Ii PA-C Work Phone: [facility] 08-09-2022 13:11-0500 Body weight 100.06 kg Edilia Titi PA-C Work Phone: [facility] 08-09-2022 13:11-0500 Diastolic blood pressure 76 mm[Hg] Edilia [place] Ii PA-C Work Phone: [facility] 08-09-2022 13:11-0500 Heart rate 82 /min Edilia [place] Ii PA-C Work Phone: [facility] 08-09-2022 13:11-0500 SaO2% (BldA) [Mass fraction] 97 % Edilia [place] Ii PA-C Work Phone: [facility] 08-09-2022 13:110500 Systolic blood pressure 108 mm[Hg] Edilia Walls PA-C Work Phone: [facility] Encounters Encounter Date Encounter Type Care [...] Activity Detail Author Start: 09-27-2027 Colonoscopy COLONOSCOPY [facility] Start: 09-27-2027 COLORECTAL CANCER SCREENING COLORECTAL CANCER SCREENING [facility] Start: 09-27-2027 Screening for malignant neoplasm of colon [facility] Start: 08-14-2023 Advance Directive Discussion Advance Directive Discussion [facility] Start: 08-14-2023 Depression Assessment Depression Assessment [facility] Start: 04-14-2023 Covid-19 Vaccine ( season) Covid-19 Vaccine () [facility] Start: 04-14-2023 Influenza vaccination [facility] Start: 08-14-2022 ADVANCE DIRECTIVE DISCUSSION ADVANCE DIRECTIVE DISCUSSION [facility] Start: 08-14-2022 DEPRESSION ASSESSMENT DEPRESSION ASSESSMENT [facility] Start: 06-21-2022 Colonoscopy COLONOSCOPY [facility] Start: 06-21-2022 COLORECTAL CANCER SCREENING COLORECTAL CANCER SCREENING [facility] Start: 04-14-2022 Influenza vaccination INFLUENZA (#1) [facility] Start: 07-10-2021 COVID-19 VACCINE (4 - Booster for Pfizer series) COVID-19 VACCINE (4 - Booster for Pfizer series) [facility] Start: 07-10-2021 COVID-19 VACCINE (4 - Pfizer series) COVID-19 VACCINE (4 - Pfizer series) [facility] Start: 04-17-2020 Hepatitis B screening URINE ALBUMIN:CREATININE RATIO [facility] Start: 04-09-2020 Hepatitis B surface antibody level LDL CHOLESTEROL [facility] Start: 03-20-2020 PNEUMOCOCCAL: 65+ (3 - PPSV23 if available, else PCV20) PNEUMOCOCCAL: 65+ (3 - PPSV23 if available, else PCV20) [facility] Start: 03-20-2020 PNEUMOCOCCAL: 65+ (3 - PPSV23 or PCV20) PNEUMOCOCCAL: 65+ (3 - PPSV23 or PCV20) [facility] Start: 01-28-2020 Shingrix Vaccine (2 of 2) Shingrix Vaccine (2 of 2) [facility] Start: 11-29-2019 Glaucoma screening Dilated Retinal Exam [facility] Start: 11-29-2019 Hepatitis C antibody, confirmatory test DILATED RETINAL EXAM [facility] Start: 11-22-2019 ANNUAL PCP TEAM CHRONIC DISEASE VISIT ANNUAL PCP TEAM CHRONIC DISEASE VISIT [facility] Start: 10-10-2019 Hemoglobin A1c measurement HbA1C [facility] Start: 10-10-2019 Hemoglobin A1c/Hemoglobin.total in Blood HBA1C [facility] Start: 07-17-2019 3 comp foot exam completed DIABETIC FOOT EXAM [facility] Start: 07-17-2019 Diabetic foot examination Diabetic Foot Exam [facility] Start: 2013 Hepatitis B Vaccine (1 of 3 - Risk 3-dose series) Hepatitis B Vaccine (1 of 3 - Risk 3-dose series) [facility] Start: 2013 RSV Vaccine (1 - 1-dose 60+ series) RSV Vaccine (1 - 1-dose 60+ series) [facility] Start: 03-08-2013 Urine microalbumin profile [facility] Start: 2003 SHINGRIX VACCINE (1 of 2) SHINGRIX VACCINE (1 of 2) [facility] Start: 1998 COLOGUARD (FIT-DNA) COLOGUARD (FIT-DNA) [facility] Start: [address] COLONOGRAPHY [facility] Start: 1998 FECAL OCCULT BLOOD FECAL OCCULT BLOOD [facility] Start: 1998 Screening for malignant neoplasm of colon [facility] Start: 1998 SIGMOIDOSCOPY SIGMOIDOSCOPY [facility] Start: 1983 Zoledronic acid therapy ALPHA-1 ANTITRYPSIN DEFICIENCY SCREENING [facility] Start: 1971 SPIROMETRY SPIROMETRY [facility] End: 09-16-2023 EGD DIAGNOSTIC EGD DIAGNOSTIC Endoscopy Routine Epigastric pain 1 Occurrences starting 09/16/2022 until 09/16/2023 [facility] Work Phone: Immunizations Immunization Date Immunization Notes Care Provider Swathi brizuela 03-14-2022 influenza virus vacc ine, unspecified formulation Leroy Alcocer MD Work Phone: [facility] 07-17-2018 influenza, high dose seasonal, preservative-free Edilia San [place] Ii PA-C Work Phone: [facility] Work Phone: 07-17-2018 pneumococcal conjuga te vaccine, 13 valent Edilia Titi PA-C Work Phone: [facility] Work Phone: 07-17-2017 influenza, injectabl e, quadrivalent, contains preservative Edilia [place] Ii PA-C Work Phone: [facility] 07-15-2016 influenza, injectabl e, quadrivalent, contains preservative Edilia Titi PA-C Work Phone: [facility] 07-29-2015 influenza, injectabl e, quadrivalent, contains preservative Edilia Titi PA-C Work Phone: [facility] Work Phone: 03-20-2015 pneumococcal polysaccharide vaccine, 23 valent Edilia Titi PA-C Work Phone: [facility] 06-10-2014 influenza, seasonal, injectable Edilia Titi PA-C Work Phone: [facility] 03-07-2013 tetanus and diphther ia toxoids, not adsorbed, for adult use Edilia [place] Ii PA-C Work Phone: [facility] 06-14-2012 influenza virus vacc ine, unspecified formulation Edilia [place] Ii PA-C Work Phone: [facility] 06-25-2010 influenza virus vacc ine, unspecified formulation Edilia [place] Ii PA-C Work Phone: [facility] 06-05-2009 influenza virus vacc ine, unspecified formulation Edilia Titi PA-C Work Phone: [facility] Work Phone: 07-18-2007 influenza virus vacc ine, unspecified formulation Edilia [place] Ii PA-C Work Phone: [facility] Work Phone: 06-13-2006 influenza virus vacc ine, unspecified formulation Edilia Titi PA-C Work Phone: [facility] Work Phone: Payers Date Payer Category Payer Medicare [id number] 2007 Medicare [employer] [place] [id number] 2007-Present [phone] [address] [place] [address] O [id number] Social History Date Type Detail Facility Start: 10-13-2011 End: 10-20-2022 Tobacco smoking status NHIS Ex-smoker [facility] History of tobacco use Current smoker [facility] History of tobacco use Cigarette Smoker [facility] Start: 10-13-2011 End: 10-20-2022 Tobacco use and exposure User of smokeless tobacco [facility] History of tobacco use Chews Tobacco [facility] Start: 08-09-2022 End: 09-28-2022 Alcohol intake Current drinker of alcohol (finding) [facility] Start: 08-09-2022 End: 08-28-2022 Alcohol intake [facility] Start: 11-07-2017 Alcohol Comment rarely [facility] Start: 1955 Sex Assigned At Not on file [facility] Start: 09-27-2022 Tobacco Comment snuff 1 can a week [facility] Start: 10-20-2022 End: 10-11-2023 Alcohol intake Ex-drinker (finding) [facility] Start: 10-20-2022 Tobacco Comment One can a week .States only smoked occasionally years ago. [facility] Start: 08-28-2022 End: 11-18-2022 Tobacco use panel [facility] Adult Depression Screening Assessment 0 [facility] Medical Equipment Procedure Code Equipment Code [...] seek medical care. documented in this encounter [facility] 10-11-2023 Nurse Note Arrived in phase II [...] phase II via cart. Left lateral position. [id number], but responds to verbal stimuli. Color normal; skin warm and dry. Respirations wnl and unlabored. Abdomen soft and with + bowel sounds in quads X 4. Patient resting comfortably. Family at bedside. Dr. Marshall at bedside to review procedure and recommendations. eVlia Ravi RN documented in this encounter [facility] 10-11-2023 History and physical note HISTORY AND [...] 06/16/2017 Added automatically from request for surgery [id number] Impaired fasting glucose 07/15/2016 laparoscopic cholecystectomy 2022 [...] Marshall III, MD documented in this encounter [facility] 09-28-2023 Note HNO ID: [id number] Author: LEROY ALCOCER MD Service: ? Author Type: Physician Type: Progress Notes Filed: 09/28/2023 08:29 Note Text: Called by patient's PCP Dr. Zonia Batista for increasing epigastric symptoms. Patient had prior upper endoscopy before his cholecystectomy which did demonstrate gastritis. Will plan for urgent upper endoscopy. [facility] 09-28-2023 History of Present illness Narrative Called by patient's PCP Dr. Zonia Batista for increasing epigastric symptoms. Patient had prior upper endoscopy before his cholecystectomy which did demonstrate gastritis. Will plan for urgent upper endoscopy. documented in this encounter [facility] 11-18-2022 Note HNO ID: [id number] Author: Edilia Walls PA-C Service: ? Author Type: Physician Quality Assurance Director Type: Progress Notes Filed: 11/22/2022 4:57 PM Note Text: FOLLOW UP VISIT - CHOLECYSTECTOMY NAME: Abdirizak Bates [facility] NO.: [id number] DATE OF SERVICE: 11/18/2022 : 1955 REFERRING [...] me as needed. Edilia Walls PA-C [facility] 11-18-2022 Instructions Edilia Walls PA-C - 11/18/2022 10:01 AM EDT The following instructions are important for you related to your office visit today with the [facility] General Surgeons. INSTRUCTIONS FOLLOWING YOU RECENT GALLBLADDER [...] you should contact our office immediately @ [phone] and ask to be transferred to the General Surgery department. documented in this encounter [facility] 11-18-2022 History of Present illness Narrative FOLLOW UP VISIT - CHOLECYSTECTOMY NAME: Abdirizak Bates [facility] NO.: [id number] DATE OF SERVICE: 11/18/2022 : 1955 REFERRING [...] Edilia Walls PA-C documented in this encounter [facility] 11-18-2022 Nurse Note REVIEW OF SYSTEMS: [...] Clara Lira RN documented in this encounter [facility] 11-14-2022 Miscellaneous Notes Patient was evaluated at [facility] ER, CT scan of the abdomen and pelvis was completed. Diagnosed with back spasm. Carol Vega RN Called patient back to updated. Alethea stated that she called 911 and ambulance was there. Yes, agree with urgent ED evaluation for severe abdominal pain Patient called back, patient is yelling in pain, advised patient to go to ER. Alethea asked if [facility] would treat patient, informed them yes they will however Dr Alcocer is not at that hospital and is doing surgeries in [place] today. voiced understanding. Alethea # [phone] Abdirizak's , Alethea, called. Abdirizak had laparoscopic [...] of the pain. They use [facility] in [place]. 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 Alcocer, stating that he does not work at their facility. I apologized to Alethea, stating that I would reach out and see who can update that paperwork and correct that error. Carol Vega RN documented in this encounter [facility] 11-11-2022 Note HNO ID: [id number] Author: Joni Crooks RN Service: Nursing Author Type: Registered Nurse Type: Nursing Progress Note Filed: 11/11/2022 12:59 PM Note Text: PT up to bathroom, ambulated with close supervision, tolerated well. 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 Copy made for Angela Norris CNP and original sent to scanning. Araceli Davis LPN Called and spoke with Katerina at [facility], she will fax last office visit and cardiac records. Araceli Davis LPN Received labs from Dr. Yousif's office. Copy made for Angela Norris CNP and original sent to [email or web address] through Context app. Araceli Davis LPN Received a call from [facility] stating Dr. Mckeon office has moved and new phone number is [phone]. I called Dr. Mckeon new office and spoke with Katrina. Requested labs especially A1c to be faxed, fax number given. Araceli Davis LPN Called and left message at Dr. Mathews office requesting patients most recent labs especially A1c to be faxed. Callback number and fax number given. Araceli Davis LPN Called and left message with Katerina at [facility] to return call. Callback number given. Araceli Davis LPN Please request most recent labs, especially A1c from PCP's office. And cardiac records, last OV from [facility]. DOS 11/11/2022 documented in this encounter [facility] 11-04-2022 History and physical note HISTORY [...] fevers. Neurological: No history of TIA's, stroke, ENERGY DIRECTOR tumor, impaired sensorium, hemiplegia, paraplegia or quadraplegia. No neurological symptoms or problems. Respiratory: Positive for: asthma and COPD. Negative for: pneumonia within 6 weeks, tobacco use, URI < 2 weeks and obstructive sleep apnea. Cardiovascular: Positive for: anticoagulation therapy (ASA), CAD, hyperlipidemia (on rx) and open heart surgery Negative for: arrhythmia, atrial fibrillation, chest pain, CHF, congenital heart defect, DVT/PE, hypertension, recent OK, murmur/valvular heart disease, PVD and valve surgery. [...] for: joint pain. Skin: +rosacea, following [facility] PAST MEDICAL HISTORY Diagnosis Date Asthma CAD [...] 06/16/2017 Added automatically from request for surgery [id number] Impaired fasting glucose 07/15/2016 Myalgia and myositis, [...] A1C Date Value 04/09/2019 Test sent to [facility]. % 11/05/2018 Test sent to [facility]. % 06/28/2018 Test sent to [facility]. % 07/17/2017 Test sent to [facility]. % 06/23/2016 Test sent to [facility]. % 06/23/2016 6.1 No results found for this or any previous visit (from the past 8760 hour(s)). No results found for this or any previous visit (from the past 45556 hour(s)). Assessment Patient has the following medical conditions which may affect nereida-operative course: Other hyperlipidemia Assessment: c/w statin CAD (coronary artery disease) Assessment: CABG x3, 2011, following [facility], daily ASA, denies CP, palpitations [...] equal to 35 kg/m^2 STOP-Bang Score: 4 [id number] Score: Age: 65-74 Sex: male CHF history: No Hypertension history: Yes Stroke/TIA/thromboembolism history: No Vascular disease history: Yes Diabetes history: Yes [id number] Score: 4 ARISCAT Score: Age: 51-80 Preoperative [...] AM PAGER/CONTACT #: documented in this encounter [facility] 11-04-2022 Instructions Angela Norris APRN.CNP - 11/04/2022 11:12 AM EDT PATIENT PREOPERATIVE INSTRUCTIONS No ref. provider found has scheduled you for your procedure at this surgery center: [facility]: [phone] -- [address] [facility] [address]. Please read below carefully for your personalized [...] Procedures: - YOU MUST HAVE A RESPONSIBLE WEATHER ANALYST TAKE YOU HOME. A INJECTION MOLDING MACHINE SETTER OR QUILTING MACHINE HELPER CANNOT BE MADE A RESPONSIBLE WEATHER ANALYST. - We recommend that a responsible person [...] Advance Directive, please fax a copy to [phone] or email to for it to be [...] Angela Norris APRN.DAMON documented in this encounter [facility] 10-21-2022 Note HNO ID: [id number] Author: Leroy Alcocer MD Service: ? Author [...] 06/16/2017 Added automatically from request for surgery [id number] Impaired fasting glucose 07/15/2016 Myalgia and myositis, [...] REDUCIBLE 2 (more content not included)... [facility] 10-21-2022 History of Present illness [...] 06/16/2017 Added automatically from request for surgery [id number] Impaired fasting glucose 07/15/2016 Myalgia and myositis, [...] Procedure: LAPAROSCOPIC CHOLECYSTECTOMY WITH INTRAOPERATIVE CHOLEANGIOGRAM - [id number] Planned antibiotic: Ancef 2gm IVPB assistant front office manager to OR SCDs needed - Yes Quality Assurance Director Needed - No Diagnoses: (K80.20) Calculus of gallbladder without cholecystitis without obstruction (primary encounter diagnosis) (R10.11) RUQ pain My findings have been communicated to via shared medical record. This note will be forwarded to No primary care provider on file.. Leroy Alcocer MD documented in this encounter [facility] 10-20-2022 Miscellaneous Notes Called and spoke to Linette [facility], CT scan dept. Pushed image per Dr Alcocer request. Lilliam Cota LPN documented in this encounter [facility] 10-07-2022 Note HNO ID: [id number] Author: Edilia Walls PA-C Service: ? Author Type: Physician Quality Assurance Director Type: Progress Notes Filed: 10/13/2022 2:07 PM Note Text: FOLLOW UP VISIT - ENDOSCOPY NAME: Abdirizak Ch [facility] NO.: [id number] DATE OF SERVICE: 10/07/2022 : 1955 REFERRING [...] which included preparing to see the patient, [id number] patient care, completing clinical documentation, obtaining and/or reviewing separately obtained history, counseling and educating the patient/family/caregiver, independently interpreting results (not separately reported), and communicating results to the patient/family/caregiver. Edilia Walls PA-C [facility] 10-07-2022 Instructions Edilia Walls PA-C - 10/07/2022 [...] to your office visit today with the [facility] General Surgeons. INSTRUCTIONS FOLLOWING A NORMAL COLONOSCOPY [...] you should contact our office immediately @ [phone] and ask to be transferred to the General Surgery department. documented in this encounter [facility] 10-07-2022 History of Present illness Narrative FOLLOW UP VISIT - ENDOSCOPY NAME: Abdirizak Bates [facility] NO.: [id number] DATE OF SERVICE: 10/07/2022 : 1955 REFERRING [...] which included preparing to see the patient, [id number] patient care, completing clinical documentation, obtaining and/or reviewing separately obtained history, counseling and educating the patient/family/caregiver, independently interpreting results (not separately reported), and communicating results to the patient/family/caregiver. Edilia Walls PA-C documented in this encounter [facility] 09-27-2022 Nurse Note Oxygen applied at [...] on left side. documented in this encounter [facility] 09-27-2022 History and physical note UPDATED [...] 06/16/2017 Added automatically from request for surgery [id number] Impaired fasting glucose 07/15/2016 Myalgia and myositis, [...] entered by the nurse and reviewed by nd Nursing Notes: Mel Alonso LPN 08/09/2022 1:45 [...] patient was offered a surgery/procedure at a [facility] facility. I have counseled the patient [...] which included preparing to see the patient, [id number] patient care, completing clinical documentation, obtaining and/or [...] 06/16/2017 Added automatically from request for surgery [id number] Impaired fasting glucose 07/15/2016 Myalgia and myositis, [...] entered by the nurse and reviewed by nd Nursing Notes: Mel Alonso LPN 08/09/2022 1:45 [...] patient was offered a surgery/procedure at a [facility] facility. I have counseled the patient [...] which included preparing to see the patient, [id number]-ex-smrx patient care, completing clinical documentation, obtaining and/or reviewing separately obtained history, performing a medically appropriate examination, and care coordination (not separately reported). Edilia Walls PA-C documented in this encounter [facility] 09-16-2022 Miscellaneous Notes EGD added to procedure [employer] Sales Representative Pt calling to inform that Dr. Yousif had ordered EGD for pt. There is an order in [facility] from [facility]. Pt asking if that can be done the same day as the colonoscopy. Please contact patient to confirm date. Aspen Saniz documented in this encounter [facility] 09-16-2022 Miscellaneous Notes Called by patient's PCP Dr. Batista who also is having upper symptoms will add EGD and perform orosco biopsies. 09/27/2022 COLON ASC documented in this encounter [facility] 08-09-2022 Nurse Note REVIEW OF SYSTEMS: [...] Mel Alonso LPN documented in this encounter [facility] 08-09-2022 History of Present illness Narrative [...] 06/16/2017 Added automatically from request for surgery [id number] Impaired fasting glucose 07/15/2016 Myalgia and myositis, [...] ING HERNIA,5+Y/O,REDUCIBL 2001 2 right REPAIR UMBILICAL PHYLICAI,5+Y/O,REDUC 2003 with mesh REVISE MEDIAN N/CARPAL TUNNEL [...] entered by the nurse and reviewed by nd Nursing Notes: Mel Alonso LPN 08/09/2022 1:45 [...] was offered a surgery/procedure at a [facility]. I have counseled the patient regarding the [...] which included preparing to see the patient, icea-sf-bizz patient care, completing clinical documentation, obtaining and/or reviewing separately obtained history, performing a medically appropriate examination, and care coordination (not separately reported). Edilia Walls PA-C documented in this encounter [facility] documented as of this encounter (statuses as of 08/18/2022) [facility]2017 History of Past illness Narrative* Problem Noted Date Resolved Date Hemorrhoids, internal 06/16/2017 01/15/2018 Overview: Added automatically from request for surgery [id number] Bright red rectal bleeding 06/16/201707/17 Overview: Added automatically from request for surgery [id number] History of colonic polyps 06/16/20172016 Overview: Added automatically from request for surgery [id number] Calculus of gallbladder with out cholecystitis without [...] Laboratory test 07/16/2012 11/04/2014 Overview: PSA done [facility] 07/06/2012 - 0.89 Pain in joint, shoulder region 04/06/2012 0 04/12/2016 GERD (gastroesophageal reflux disease) 0 07/17/2017 Diabetes mellitus 06/25/2010 09/04/2012 Headache(784.0) 10/30/2007 01/15/2018 Dysthymic disorder 07/17/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) Other malaise and fatigue 2015 Other specified disease of hair and hair follicl es 11/04/2014 documented as of this encounter (statuses as of 09/16/2022) [facility] History of Past illness Narrative* Problem Noted Date Resolved Date Hemorrhoids, internal 06/16/2017 01/15/2018 Overview: Added automatically from request for surgery [id number] Bright red rectal bleeding 06/16/201707/17 Overview: Added automatically from request for surgery [id number] History of colonic polyps 06/16/20172016 Overview: Added automatically from request for surgery [id number] Calculus of gallbladder with out cholecystitis without [...] Laboratory test 07/16/2012 11/04/2014 Overview: PSA done [facility] 07/06/2012 - 0.89 Pain in joint, shoulder region 04/06/2012 0 04/12/2016 GERD (gastroesophageal reflux disease) 0 07/17/2017 Diabetes mellitus 06/25/2010 09/04/2012 Headache(784.0) 10/30/2007 01/15/2018 Dysthymic disorder 07/17/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) Other malaise and fatigue 2015 Other specified disease of hair and hair follicl es 11/04/2014 documented as of this encounter (statuses as of 09/16/2022) [facility] History of Past illness Narrative* Problem Noted Date Resolved Date Hemorrhoids, internal 06/16/2017 01/15/2018 Overview: Added automatically from request for surgery [id number] Bright red rectal bleeding 06/16/201707/17 Overview: Added automatically from request for surgery [id number] History of colonic polyps 06/16/20172016 Overview: Added automatically from request for surgery [id number] Calculus of gallbladder with out cholecystitis without [...] Laboratory test 07/16/2012 11/04/2014 Overview: PSA done [facility] 07/06/2012 - 0.89 Pain in joint, shoulder region 04/06/2012 0 04/12/2016 GERD (gastroesophageal reflux disease) 0 07/17/2017 Diabetes mellitus 06/25/2010 09/04/2012 Headache(784.0) 10/30/2007 01/15/2018 Dysthymic disorder 07/17/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) Other malaise and fatigue 2015 Other specified disease of hair and hair follicl es 11/04/2014 documented as of this encounter (statuses as of 10/13/2022) [facility] History of Past illness Narrative* Problem Noted Date Resolved Date Hemorrhoids, internal 06/16/2017 01/15/2018 Overview: Added automatically from request for surgery [id number] Bright red rectal bleeding 06/16/201707/17 Overview: Added automatically from request for surgery [id number] History of colonic polyps 06/16/20172016 Overview: Added automatically from request for surgery [id number] Calculus of gallbladder with out cholecystitis without [...] Laboratory test 07/16/2012 11/04/2014 Overview: PSA done [facility] 07/06/2012 - 0.89 Pain in joint, shoulder region 04/06/2012 0 04/12/2016 GERD (gastroesophageal reflux disease) 0 07/17/2017 Diabetes mellitus 06/25/2010 09/04/2012 Headache(784.0) 10/30/2007 01/15/2018 Dysthymic disorder 07/17/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) Other malaise and fatigue 2015 Other specified disease of hair and hair follicl es 11/04/2014 documented as of this encounter (statuses as of 10/20/2022) [facility] History of Past illness Narrative* Problem Noted Date Resolved Date Hemorrhoids, internal 06/16/2017 01/15/2018 Overview: Added automatically from request for surgery [id number] Bright red rectal bleeding 06/16/201707/17 Overview: Added automatically from request for surgery [id number] History of colonic polyps 06/16/20172016 Overview: Added automatically from request for surgery [id number] Calculus of gallbladder with out cholecystitis without [...] Laboratory test 07/16/2012 11/04/2014 Overview: PSA done [facility] 07/06/2012 - 0.89 Pain in joint, shoulder region 04/06/2012 0 04/12/2016 GERD (gastroesophageal reflux disease) 0 07/17/2017 Diabetes mellitus 06/25/2010 09/04/2012 Headache(784.0) 10/30/2007 01/15/2018 Dysthymic disorder 07/17/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) Other malaise and fatigue 2015 Other specified disease of hair and hair follicl es 11/04/2014 documented as of this encounter (statuses as of 10/26/2022) [facility] History of Past illness Narrative* Problem Noted Date Resolved Date Hemorrhoids, internal 06/16/2017 01/15/2018 Overview: Added automatically from request for surgery [id number] Bright red rectal bleeding 06/16/201707/17 Overview: Added automatically from request for surgery [id number] History of colonic polyps 06/16/20172016 Overview: Added automatically from request for surgery [id number] Calculus of gallbladder with out cholecystitis without [...] Laboratory test 07/16/2012 11/04/2014 Overview: PSA done [facility] 07/06/2012 - 0.89 Pain in joint, shoulder region 04/06/2012 0 04/12/2016 GERD (gastroesophageal reflux disease) 0 07/17/2017 Diabetes mellitus 06/25/2010 09/04/2012 Headache(784.0) 10/30/2007 01/15/2018 Dysthymic disorder 07/17/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) Other malaise and fatigue 2015 Other specified disease of hair and hair follicl es 11/04/2014 documented as of this encounter (statuses as of 11/09/2022) [facility] of Past illness Narrative* Problem Noted Date Resolved Date Hemorrhoids, internal 06/16/2017 01/15/2018 Overview: Added automatically from request for surgery [id number] Bright red rectal bleeding 06/16/201707/17 Overview: Added automatically from request for surgery [id number] History of colonic polyps 06/16/20172016 Overview: Added automatically from request for surgery [id number] Calculus of gallbladder with out cholecystitis without [...] Laboratory test 07/16/2012 11/04/2014 Overview: PSA done [facility] 07/06/2012 - 0.89 Pain in joint, shoulder region 04/06/2012 0 04/12/2016 GERD (gastroesophageal reflux disease) 0 07/17/2017 Diabetes mellitus 06/25/2010 09/04/2012 Headache(784.0) 10/30/2007 01/15/2018 Dysthymic disorder 07/17/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) Other malaise and fatigue 2015 Other specified disease of hair and hair follicl es 11/04/2014 documented as of this encounter (statuses as of 11/09/2022) [facility] of Past illness Narrative* Problem Noted Date Resolved Date Hemorrhoids, internal 06/16/2017 01/15/2018 Overview: Added automatically from request for surgery [id number] Bright red rectal bleeding 06/16/201707/17 Overview: Added automatically from request for surgery [id number] History of colonic polyps 06/16/20172016 Overview: Added automatically from request for surgery [id number] Calculus of gallbladder with out cholecystitis without [...] Laboratory test 07/16/2012 11/04/2014 Overview: PSA done [facility] 07/06/2012 - 0.89 Pain in joint, shoulder region 04/06/2012 0 04/12/2016 GERD (gastroesophageal reflux disease) 0 07/17/2017 Diabetes mellitus 06/25/2010 09/04/2012 Headache(784.0) 10/30/2007 01/15/2018 Dysthymic disorder 07/17/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) Other malaise and fatigue 2015 Other specified disease of hair and hair follicl es 11/04/2014 documented as of this encounter (statuses as of 11/18/2022) [facility] History of Past illness Narrative* Problem Noted Date Resolved Date Hemorrhoids, internal 06/16/2017 01/15/2018 Overview: Added automatically from request for surgery [id number] Bright red rectal bleeding 06/16/201707/17 Overview: Added automatically from request for surgery [id number] History of colonic polyps 06/16/20172016 Overview: Added automatically from request for surgery [id number] Calculus of gallbladder with out cholecystitis without [...] Laboratory test 07/16/2012 11/04/2014 Overview: PSA done [facility] 07/06/2012 - 0.89 Pain in joint, shoulder region 04/06/2012 0 04/12/2016 GERD (gastroesophageal reflux disease) 0 07/17/2017 Diabetes mellitus 06/25/2010 09/04/2012 Headache(784.0) 10/30/2007 01/15/2018 Dysthymic disorder 07/17/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) Other malaise and fatigue 2015 Other specified disease of hair and hair follicl es 11/04/2014 documented as of this encounter (statuses as of 11/23/2022) [facility] History of Past illness Narrative* Problem Noted Date Diagnosed Date Resolved Date Hemorrhoids, internal 06/16/2017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: Added automatically from request for surgery [id number] Bright red rectal bleeding 06/16/2017 1 09/17/2016 Overview: Added automatically from request for surgery [id number] History of colonic polyps 06/16/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: Added automatically from request for surgery [id number] Calculus of gallbladder with out cholecystitis without [...] Laboratory test 07/16/2012 11/04/2014 Overview: PSA done [facility] 07/06/2012 - 0.89 Pain in joint, shoulder region 04/06/2012 04/12/2016 GERD (gastroesophageal reflux disease) 06/28/2010 07/17/2017 Diabetes mellitus 06/25/2010 09/04/2012 Headache(784.0) 10/30/2007 01/15/2018 Dysthymic disorder 7 Overview: Depression (non-psychotic) Other malaise and fatigue Other specified disease of h air and hair follicles 11/04/2014 documented as of this encounter (statuses as of 04/19/2023) [facility] History of Past illness Narrative* Problem Noted Date Diagnosed Date Resolved Date Hemorrhoids, internal 06/16/2017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: Added automatically from request for surgery [id number] Bright red rectal bleeding 06/16/2017 1 09/17/2016 Overview: Added automatically from request for surgery [id number] History of colonic polyps 06/16/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: Added automatically from request for surgery [id number] Calculus of gallbladder with out cholecystitis without [...] Laboratory test 07/16/2012 11/04/2014 Overview: PSA done [facility] 07/06/2012 - 0.89 Pain in joint, shoulder region 04/06/2012 04/12/2016 GERD (gastroesophageal reflux disease) 06/28/2010 07/17/2017 Diabetes mellitus 06/25/2010 09/04/2012 Headache(784.0) 10/30/2007 01/15/2018 Dysthymic disorder 7 Overview: Depression (non-psychotic) Other malaise and fatigue Other specified disease of h air and hair follicles 11/04/2014 documented as of this encounter (statuses as of 06/18/2023) [facility] History of Past illness Narrative* Problem Noted Date Diagnosed Date Resolved Date Hemorrhoids, internal 06/16/2017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: Added automatically from request for surgery [id number] Bright red rectal bleeding 06/16/2017 1 09/17/2016 Overview: Added automatically from request for surgery [id number] History of colonic polyps 06/16/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: Added automatically from request for surgery [id number] Calculus of gallbladder with out cholecystitis without [...] Laboratory test 07/16/2012 11/04/2014 Overview: PSA done [facility] 07/06/2012 - 0.89 Pain in joint, shoulder region 04/06/2012 04/12/2016 GERD (gastroesophageal reflux disease) 06/28/2010 07/17/2017 Diabetes mellitus 06/25/2010 09/04/2012 Headache(784.0) 10/30/2007 01/15/2018 Dysthymic disorder 7 Overview: Depression (non-psychotic) Other malaise and fatigue Other specified disease of h air and hair follicles 11/04/2014 documented as of this encounter (statuses as of 09/28/2023) [facility] History of Past [facility] Narrative* Problem Noted Date Diagnosed Date Resolved Date Hemorrhoids, internal 06/16/2017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: Added automatically from request for surgery [id number] Bright red rectal bleeding 06/16/2017 1 09/17/2016 Overview: Added automatically from request for surgery [id number] History of colonic polyps 06/16/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: Added automatically from request for surgery [id number] Calculus of gallbladder with out cholecystitis without [...] Laboratory test 07/16/2012 11/04/2014 Overview: PSA done [facility] 07/06/2012 - 0.89 Pain in joint, shoulder region 04/06/2012 04/12/2016 GERD (gastroesophageal reflux disease) 06/28/2010 07/17/2017 Diabetes mellitus 06/25/2010 09/04/2012 Headache(784.0) 10/30/2007 01/15/2018 Dysthymic disorder 7 Overview: Depression (non-psychotic) Other malaise and fatigue Other specified disease of h air and hair follicles 11/04/2014 documented as of this encounter (statuses as of 10/12/2023) [facility] Encounter for screening for malignant neoplasm of colon- Primary Special screening for malignant neoplasms, colon Personal history of colonic polyps [facility] History of colonic polyps- Primary Personal history of colonic polyps Epigastric pain Abdominal pain, epigastric [facility] Diagnosis Diverticulosis- Primary Diverticulosis of colon [...] right upper quadrant [facility] Pre-operative examination- Primary Preoperative examination, unspecified Other hyperlipidemia Coronary artery disease involving [place] coronary artery of [place] heart without angina 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 documented in this encounter [facility] note* Diagnosis Calculus of gallbladder with chronic cholecystitis without obstruction- Primary Calculus of gallbladder with other cholecystitis, without mention of obstruction Back spasm Other symptoms referable to back documented in this encounter [facility] note* Diagnosis Gastroesophageal reflux disease with esophagitis, unspecified whether hemorrhage- Primary Constipation, unspecified constipation type History of colonic polyps Personal history of colonic polyps Epigastric pain Abdominal pain, epigastric documented in this encounter [facility] note* Diagnosis Epigastric pain- Primary Abdominal pain, epigastric documented in this encounter [facility] note* Diagnosis Gastroesophageal reflux disease with esophagitis and hemorrhage- Primary Epigastric pain Abdominal pain, epigastric documented in this encounter [facility] for referral (narrative)* Outpatient Procedure (Routine) - Pending Review Specialty Diagnoses / Procedures Referred By Jeffrey jacob Referred To Contact [facility] Diagnoses Epigastric pain Procedures EGD DIAGNOSTIC ESOPHAGOGASTRODUODENOSC OPY TRANSORAL DIAGNOSTIC Leroy Alcocer MD [address] [place] [address] [facility] [place] [address] Referral ID Status Reason Start Date Expiration Date Visits Requested Visits Authorized [id number] Pending Review Auto-Generat ed Referral 09/16/2022 09/16/2023 1 1 * Outpatient Procedure (Routine) - Authorized Specialty Diagnoses / Procedures Referred By Jeffrey jacob Referred To Contact [facility] Diagnoses History of colonic polyps Procedures COLONOSCOPY SCREENING COLONOSCOPY FLX DX W/COLLJ SPEC WHEN PFRMD Edilia Walls PA-C [address] [place] [address] [place] [address] [place] [address] Referral ID Status Reason Start Date Expiration Date Visits Requested Visits Authorized [id number] Authorized Auto-Generat ed Referral 08/09/2023 1 1 [facility] for referral (narrative)* Outpatient Procedure (Routine) - Closed Specialty Diagnoses / Procedures Referred By Jeffrey t Referred To Contact [facility] Diagnoses Epigastric pain Procedures EGD DIAGNOSTIC ESOPHAGOGASTRODUODENOSC OPY TRANSORAL DIAGNOSTIC Leroy Alcocer MD [address] [place] [address] [facility] Disease [address] [address] Referral ID Status Reason Start Date Expiration Date V isits Requested Visits Authorized [id number] Closed Auto-Generate d Referral 09/16/2022 09/16/2023 1 1 * Outpatient Procedure (Routine) - Closed Specialty Diagnoses / Procedures Referred By Jeffrey jacob Referred To Contact [facility] Diagnoses History of colonic polyps Procedures COLONOSCOPY SCREENING COLONOSCOPY FLX DX W/COLLJ SPEC WHEN PFRMEdilia Khan PA-C [address] [place] [address]. [place] [address] [facility] Disease [address] [address] Referral ID Status Reason Start Date Expiration Date V isits Requested Visits Authorized [id number] Closed Auto-Generate d Referral 08/09/2022 08/09/2023 1 1 [facility] for referral (narrative)* Outpatient Procedure (Routine) - Authorized Specialty Diagnoses / Procedures Referred By Jeffrey t Referred To Contact [facility] Diagnoses Epigastric pain Procedures EGD DIAGNOSTIC ESOPHAGOGASTRODUODENOS COPY TRANSORAL DIAGNOSTIC Leroy Alcocer MD [address] [address] [facility] [place] [address] [place] [address] Referral ID Status Reason Start Date Expiration Date Visits Requested Visits Authorized [id number] Authorized Auto-Generat ed Referral 09/28/2023 09/28/2024 1 1 [facility] for referral (narrative)* Outpatient Procedure (Routine) - Closed Specialty Diagnoses / Procedures Referred By Jeffrey jacob Referred To Contact [facility] Diagnoses Epigastric pain Procedures EGD DIAGNOSTIC ESOPHAGOGASTRODUODENOS COPY TRANSORAL DIAGNOSTIC Leroy Alcocer MD [address] [address] [facility] Disease [address] [address] Referral ID Status Reason Start Date Expiration Date V isits Requested Visits Authorized [id number] Closed Auto-Generate d Referral 09/28/2023 09/28/2024 1 1 [facility] for visit Narrative* Outpatient Procedure (Routine) - Closed Specialty Diagnoses / Procedures Referred By Jeffrey jacob Referred To Contact [facility] Diagnoses Epigastric pain Procedures EGD DIAGNOSTIC ESOPHAGOGASTRODUODENOSC OPY TRANSORAL DIAGNOSTIC Leroy Alcocer MD [address] [place] [address] [facility] Disease [address] [address] Referral ID Status Reason Start Date Expiration Date V isits Requested Visits Authorized [id number] Closed Auto-Generate d Referral 09/16/2022 09/16/2023 1 1 [facility] for visit Narrative* Outpatient Procedure (Routine) - Closed Specialty Diagnoses / Procedures Referred By Jeffrey jacob Referred To Contact [facility] Diagnoses Epigastric pain Procedures EGD DIAGNOSTIC ESOPHAGOGASTRODUODENOS COPY TRANSORAL DIAGNOSTIC Leroy Alcocer MD [address] [address] [facility] [address] [address] Referral ID Status Reason Start Date Expiration Date V isits Requested Visits Authorized [id number] Closed Auto-Generate d Referral 09/28/2023 09/28/2024 1 1 [facility] Summary Purpose Family History No Family [...] Date Dose Rate Site benzocaine 20% 1 [place] (TOPEX) 1 [place], TOPICAL, DIRECTED, Starting on Mon09/27/22 at 1000, [...] DATE CREATED AUTHOR AUTHOR'S ORGANIZ ATION 11/16/2022 [facility] DATE CREATED AUTHOR AUTHOR'S ORGANIZ ATION 09/29/2023 [facility] Source Comments (unrecognize d section and content) In the event this informatio n is protected by the Federal Confidentiality of Alcohol and Drug Abuse Patient Records regulations: The Federal rules restrict any use of the information to criminally investigate or prosecute any alcohol or drug abuse patient.[facility] the event this information is protected by the Federal Confidentiality of Alcohol and Drug Abuse Patient Records regulations: The Federal rules restrict any use of the information to criminally investigate or prosecute any alcohol or drug abuse patient.[facility] the event this information is protected by the Federal Confidentiality of Alcohol and Drug Abuse Patient Records regulations: The Federal rules restrict any use of the information to criminally investigate or prosecute any alcohol or drug abuse patient.[facility] the event this information is protected by the Federal Confidentiality of Alcohol and Drug Abuse Patient Records regulations: The Federal rules restrict any use of the information to criminally investigate or prosecute any alcohol or drug abuse patient.[facility] the event this information is protected by the Federal Confidentiality of Alcohol and Drug Abuse Patient Records regulations: The Federal rules restrict any use of the information to criminally investigate or prosecute any alcohol or drug abuse patient.[facility] HospitalIn the event this information is protected by the Federal Confidentiality of Alcohol and Drug Abuse Patient Records regulations: The Federal rules restrict any use of the information to criminally investigate or prosecute any alcohol or drug abuse patient.[facility] HospitalIn the event this information is protected by the Federal Confidentiality of Alcohol and Drug Abuse Patient Records regulations: The Federal rules restrict any use of the information to criminally investigate or prosecute any alcohol or drug abuse patient.[facility]In the event this information is protected by the Federal Confidentiality of Alcohol and Drug Abuse Patient Records regulations: The Federal rules restrict any use of the information to criminally investigate or prosecute any alcohol or drug abuse patient.[facility] HospitalIn the event this information is protected by the Federal Confidentiality of Alcohol and Drug Abuse Patient Records regulations: The Federal rules restrict any use of the information to criminally investigate or prosecute any alcohol or drug abuse patient.[facility] HospitalIn the event this information is protected by the Federal Confidentiality of Alcohol and Drug Abuse Patient Records regulations: The Federal rules restrict any use of the information to criminally investigate or prosecute any alcohol or drug abuse patient.[facility] HospitalIn the event this information is protected by the Federal Confidentiality of Alcohol and Drug Abuse Patient Records regulations: The Federal rules restrict any use of the information to criminally investigate or prosecute any alcohol or drug abuse patient.[facility] HospitalIn the event this information is protected by the Federal Confidentiality of Alcohol and Drug Abuse Patient Records regulations: The Federal rules restrict any use of the information to criminally investigate or prosecute any alcohol or drug abuse patient.[facility] HospitalIn the event this information is protected by the Federal Confidentiality of Alcohol and Drug Abuse Patient Records regulations: The Federal rules restrict any use of the information to criminally investigate or prosecute any alcohol or drug abuse patient.[facility] HospitalIn the event this information is protected by the Federal Confidentiality of Alcohol and Drug Abuse Patient Records regulations: The Federal rules restrict any use of the information to criminally investigate or prosecute any alcohol or drug abuse patient.[facility] Reason for Visit (unrecogniz ed section and content) Reason Comments 09/27/2022 colon asc Patient Update Reason Comments Add EGD Reason Comments Follow Up colonoscopy Reason Comments Results CT scan from [facility] Reason Comments Abdominal Pain Reason Comments Consult Reason Comments Request Outside Medical Records Reason Comments Post op complications Reason Comments Post Op Lap chioma Reason Onset Date Comments Refill Request 04/18/2023 Care Teams (unrecognized sec tion and content) Packaging Associate Relationship Specialty Start Date End Date Marshall Yousif MD [address] [place] [place], [place] [phone] PCP - General Internal Medicine 10/31/22 Packaging Associate Relationship Specialty Start Date End Date Marshall Yousif MD [address] [place], [place] [phone] PCP - General Internal Medicine 10/31/22 Packaging Associate Relationship Specialty Start Date End Date Marshall Yousif MD [address] [place], [place] [id number] PCP - General Internal Medicine 10/31/22 Packaging Associate Relationship Specialty Start Date End Date Marshall Yousif MD [address] [place], [place] [phone] PCP - General Internal Medicine 10/31/22 Packaging Associate Relationship Specialty Start Date End Date Marshall Yousif MD [address] [place], [place] [phone] PCP - General Internal Medicine 10/31/22 Packaging Associate Relationship Specialty Start Date End Date Marshall Yousif MD [address] [place], [place] [phone] PCP - General Internal Medicine 10/31/22 Inactive [...] BE BASED ON THE PRIMARY CLINICAL RECORDS. [facility]. provides no warranty or guarantee of the accuracy or completeness of information in this document.
--- NOTE | 2023-10-21 19:47 | ED.RN ---
Pt unable to recall medications. also unable.
[2023-10-21 19:59] LABS: Magnesium 1.4 mg/dL (1.6-2.6)
--- NOTE | 2023-10-21 20:32 | ECHOD_ITS ---
Version 2 Reason For Study: TIA/CVA Procedure This was a 2D Doppler, Color Flow transthoracic echocardiogram. Techncially difficult study. Patient unable to stay in proper position and was unable in extreme pain. Exam performed portable in patient room. Left Ventricle Normal LV size. Left ventricular systolic function is normal. The estimated ejection fraction is 60 %. Stage 1 diastolic dysfunction. No regional wall motion abnormalities noted. Right Ventricle Normal RV size. Normal systolic function. Atria Normal left atrium. Normal right atrium. Bubble contrast study negative for right to left interatrial shunt. Aortic Valve Trisinus/trileaflet aortic valve. Moderate focal aortic valve thickening. Mild aortic stenosis. Peak aortic valve gradient 24 mmHg. Mean aortic valve gradient 12 mmHg. Great Vessels Normal aortic root. The pulmonary artery is normal size. Normal inferior vena cava. Pericardium/Pleural No pericardial effusion. MMode/2D Measurements & Calculations LVIDd: 4.6 cm IVSd: 1.2 cm LVOT diam: 2.0 cm LVIDs: 3.1 cm LVPWd: 0.88 cm FS: 32.5 % LVOT area: 3.2 cm2 Ao root diam: 3.7 cm LAV(MOD-bp): 33.8 ml ACS: 0.58 cm LA A4 area: 13.9 cm2 LA dimension: 3.5 cm LAV(MOD-bp) Indexed: 16.6 ml/m2 LAV(MOD-sp2): 33.4 ml LAV(MOD-sp4): 29.7 ml Time Measurements MV dec time: 0.27 sec Doppler Measurements & Calculations MV E max leodan: 58.4 cm/sec Lat Peak E' Leodan: 12.2 cm/sec Med Peak E' Leodan: 9.6 cm/sec MV A max leodan: 93.0 cm/sec E/E' lat: 4.8 E/E' med: 6.1 MV E/A: 0.63 MV V2 max: 100.0 cm/sec MV P1/2t max leodan: 70.4 cm/sec Ao V2 max: 239.2 cm/sec MV max P.0 mmHg MV P1/2t: 98.0 msec Ao max P.8 mmHg MV V2 mean: 51.4 cm/sec MV dec slope: 210.3 cm/sec2 Ao V2 mean: 158.2 cm/sec MV mean P.2 mmHg Ao mean P.4 mmHg MV V2 VTI: 25.5 cm MVA(P1/2t): 2.2 cm2 Ao V2 VTI: 33.7 cm MVA(VTI): 2.5 cm2 AV (velocity ratio): 0.59 PHUC(I,D): 1.9 cm2 PHUC(V,D): 1.4 cm2 LV V1 max: 105.0 cm/sec SV(LVOT): 63.4 ml PA V2 max: 115.8 cm/sec LV V1 max P.4 mmHg PA V2 mean: 80.7 cm/sec LV V1 mean P.1 mmHg LV V1 mean: 65.1 cm/sec LV V1 VTI: 19.8 cm ECHO/Echo Complete Interpretation Summary Normal LV size. Left ventricular systolic function is normal. The estimated ejection fraction is 60 %. Stage 1 diastolic dysfunction. Bubble contrast study negative for right to left interatrial shunt. Mild aortic stenosis. Mean aortic valve gradient 12 mmHg. Ordering Physician: Sara Reaves Performed By: Erasmo Malhotra RCS
--- NOTE | 2023-10-21 20:32 | CDU_ITS ---
Reason For Study: Carotid stenosis Rt. Velocities/BP Lt. Velocities/BP Prox CCA 51.3/12.6 cm/sec. Prox CCA 64.5/11.6 cm/sec. Mid CCA 54.1/14.5 cm/sec. Mid CCA 52.2/8.8 cm/sec. Dist CCA 47.5/13.5 cm/sec. Dist CCA 49.4/8.8 cm/sec. Prox ICA 41.9/9.7 cm/sec. Prox ICA 31.5/6.6 cm/sec. Mid ICA 53.2/17.3 cm/sec. Mid ICA 43.7/13.5 cm/sec. Dist ICA 69.2/24.8 cm/sec. Dist ICA 57.1/15.9 cm/sec. Rt. ICA/CCA = 1.35. Lt. ICA/CCA = 1.09. Prox ECA 41.9/3.1 cm/sec. Prox ECA 51.3/4.1 cm/sec. Rt. Vert. 36.2/8.8 cm/sec. Lt. Vert. 45/10.9 cm/sec. Right Extracranial There is heterogeneous, irregular atherosclerotic plaque noted in the right common carotid artery. There is heterogeneous, irregular atherosclerotic plaque noted in the right internal carotid artery. There is homogeneous, smooth atherosclerotic plaque noted in the right external carotid artery. Antegrade flow is noted in the right vertebral artery. Left Extracranial There is homogeneous, smooth atherosclerotic plaque noted in the left common carotid artery. There is intimal thickening but no significant atherosclerotic plaque noted in the left internal carotid artery. There is intimal thickening but no significant atherosclerotic plaque noted in the left external carotid artery. Antegrade flow is noted in the left vertebral artery. Procedure Carotid Duplex 92491. This is a Carotid Duplex examination using B-mode, color flow and specral Doppler. Exam performed portable in patient room. VL/Carotid Duplex Ultrasound Interpretation Summary Mild (<50%) stenosis right extracranial internal carotid. Normal left extracranial internal carotid. Patent and antegrade vertebrals bilaterally. Ordering Physician: Sara Reaves Referring Physician: Marlen Bear M.D. Performed By: Rena Rodríguez RVT
[2023-10-21] MEDS: Potassium Chloride Oral Tablet 20 MEQ 40 MEQ PO (22:33)
[2023-10-21] MEDS: Tamsulosin HCl 0.4 MG Capsule 0.400000000000000022 MG PO (22:34)
[2023-10-21] MEDS: Atorvastatin Calcium 80 MG Tablet PO (22:34)
[2023-10-21] MEDS: Sucralfate 1 GM Tablet PO (22:34)
[2023-10-21 22:59] LABS: Bedside Glucose 132 mg/dL (74-106)
[2023-10-22] VITALS (8 sets, daily range): BP systolic 115–137; BP diastolic 53–82; PULSE 71–110; RESP 16–20; TEMP 36.7–39.2; O2SAT 95–98; BMI 26.1; BMI 25.9
[2023-10-22] MEDS: Gabapentin 100 MG Capsule 200 MG PO ×4 (00:58→20:43)
[2023-10-22] MEDS: Acetaminophen 325 MG Tablet 650 MG PO ×2 (00:58→08:44)
--- NOTE | 2023-10-22 03:11 | PCM.HOSP.N ---
Hospitalist Note Patient with onset fever, admission CXR without acute findings, no marked WBC elevation or shift, UA unremarkable. Will obtain procalcitonin, full respiratory viral panel, COVID PCR. If unremarkable, may necessitate further imaging or consideration prophylactic abx therapy.
[2023-10-22] MEDS: Magnesium Sulfate 2 GM in Dextrose 5%-Water (100mL Bag) 100 ML IV (03:22)
[2023-10-22] MEDS: Sucralfate 1 GM Tablet PO ×4 (06:38→20:42)
[2023-10-22 06:53] LABS: Absolute Lymphocyte Count 1.92 X10^3/uL (0.83-4.51); Absolute Neutrophil Count 7.4 X10^3/uL (2.0-7.7); Basophil# 0.03 X10^3/uL; Basophil% 0.3 % (0-1); Hematocrit 36.1 % (40-54); Hemoglobin 12.2 g/dL (13.0-16.5); Lymphocyte # 1.92 X10^3/ul (0.83-4.51); Lymphocyte % 18.4 % (19-41); Mean Corp Hgb Conc 33.8 g/dL (32-36); Mean Corpuscular Hgb 28.6 pg (27.0-32.0); Mean Corpuscular Volume 84.7 fL (80-94); Mean Platelet Vol. 8.2 fl (6.2-12.0); Monocyte# 1.05 X10^3/uL; NRBC Flagged by Analyzer 0 % (0-5); Neutrophil % 70.7 % (47-70); Platelet Count 293 K/mm3 (150-450); RBC Distribution Width CV 13.2 % (11.6-14.6); RBC Distribution Width SD 40.6 fl (35.1-43.9); Red Blood Count 4.26 M/mm3 (4.6-6.2); White Blood Count 10.5 K/mm3 (4.4-11.0)
[2023-10-22 07:02] LABS: Bedside Glucose 97 mg/dL (74-106)
[2023-10-22 07:12] LABS: Magnesium 2.7 mg/dL (1.6-2.6)
[2023-10-22] MEDS: Vancomycin HCl 2,000 MG in 0.9% Normal Saline (500mL Bag) 500 ML 250 MG IV (07:56)
[2023-10-22 08:26] LABS: ALB/GLOB Ratio 0.9 RATIO (0.9-2.4); AST(SGOT) 22 U/L (15-37); Alanine Aminotransfer ALT/SGPT 22 U/L (16-61); Albumin, Serum 3.2 g/dL (3.2-5.0); Alkaline Phosphatase 76 U/L (45-117); Anion Gap 9 (5-15); BUN 28 mg/dL (7-18); BUN/Creat Ratio 32.4 RATIO (10-20); Calcium,Total 9.2 mg/dL (8.5-10.1); Chloride 98 mmol/L (98-107); Cholesterol 179 mg/dL (200); Creatinine, Serum 0.86 mg/dL (0.70-1.30); EST Glomerular Filtration Rate 93 mL/min (>60); Est Glom Filt Rate - Afr Amer 112 mL/min (>60); Estimated Creatinine Clearance 82.53 ml/min; Globulin 3.5 g/dL (2.2-4.2); Glucose 125 mg/dL (74-106); High Density Lipoprotein 44 mg/dL; Potassium 3.3 mmol/L (3.5-5.1); Protein, Total 6.7 g/dL (6.4-8.2); Sodium Level 131 mmol/L (136-145); Thyroid Stim Hormone (TSH) 1.11 uIU/mL (0.358-3.74); Triglycerides 59 mg/dL; Very Low Density Lipoprotein 12 mg/dL (5-40)
[2023-10-22 08:29] LABS: Procalcitonin < 0.04 ng/mL (0.00-0.09)
[2023-10-22] MEDS: Enoxaparin 40 MG/0.4 ML Syringe SC (08:45)
[2023-10-22] MEDS: Aspirin E.C. 81 MG Tablet PO (08:46)
[2023-10-22] MEDS: Clopidogrel Bisulfate 75 MG Tablet PO (08:46)
[2023-10-22 09:05] LABS: Hemoglobin A1c 6.4 % (3.8-5.6)
[2023-10-22] MEDS: Ampicillin 2 GM in 0.9% Normal Saline (100mL MB+) 100 ML IV ×4 (09:56→20:36)
[2023-10-22] MEDS: Ceftriaxone 2 GM in 0.9% Normal Saline (50mL MB+) 50 ML IV ×2 (10:32→22:14)
--- NOTE | 2023-10-22 10:47 | PN.HOSP_ITS ---
Reason for Visit Reason for Visit: Diagnoses Cerebral infarction, unspecified (10/21/23) Objective Data Objective Data Vital Signs: Vital Signs Temp Pulse Resp BP Pulse Ox O2 Del Method 100.1 F H 110 H 16 124/73 H 97 Room Air 10/22/23 08:30 10/22/23 08:30 10/22/23 08:30 10/22/23 08:30 10/22/23 08:30 10/22/23 10:00 Oxygen Delivery Method Room Air Weight: 181 lb 3.52 oz Body Mass Index (BMI) 25.9 Intake & Output: Intake and Output for Last 24 Hours 10/20/23 10/21/23 10/23/23 23:59 23:59 00:59 Intake Total 800 / 800 1055.67 / 1055.67 Output Total 250 / 250 Balance 800 / 800 805.67 / 805.67 Lab / Micro Data 10/22/23 05:42 10/22/23 05:42 Labs: Laboratory Results - last 24 hr 10/21/23 16:52: WBC 10.3, RBC 4.60, Hgb 13.1, Hct 39.1 L, MCV 85.0, MCH 28.5, MCHC 33.5, RDW Std Deviation 41.1, RDW Coeff of Frankie 13.3, Plt Count 343, MPV 8.1, Immature Gran % (Auto) 0.400, Neut % (Auto) 69.6, Lymph % (Auto) 20.2, Stokes % (Auto) 9.6, Eos % (Auto) 0.0, Baso % (Auto) 0.2, Absolute Neuts (auto) 7.2, Absolute Lymphs (auto) 2.09, Nucleated RBC % 0, PT 13.7, INR 1.1, APTT 26.6, Sodium 131 L, Potassium 3.2 L, Chloride 97 L, Carbon Dioxide 26.0, Anion Gap 8, BUN 24 H, Creatinine 0.84, Estim Creat Clear Calc 84.49, Est GFR (MDRD) Af Amer 116, Est GFR (MDRD) Non-Af 96, BUN/Creatinine Ratio 28.5 H, Glucose 131 H, Calcium 9.5, Magnesium 1.4 L, Troponin I High Sens 28 10/21/23 18:25: Urine Color Yellow, Urine Clarity Clear, Urine pH 7.0, Ur Specific [place] 1.010, Urine Protein 30 H, Urine Glucose (UA) 50 H, Urine Ketones 15 H, Urine Occult Blood 25 H, Urine Nitrite Negative, Urine Bilirubin Negative, Urine Urobilinogen Normal, Ur Leukocyte Esterase 25 H, Urine RBC 0 SEEN, Urine WBC 0-5 SEEN, Ur Squamous Epith Cells 0 SEEN, Urine Bacteria 0 SEEN, Urine Mucus 0 SEEN 10/21/23 18:27: Ammonia < 10.0 L 10/21/23 22:39: POC Glucose 132 H 10/22/23 05:42: WBC 10.5, RBC 4.26 L, Hgb 12.2 L, Hct 36.1 L, MCV 84.7, MCH 28.6, MCHC 33.8, RDW Std Deviation 40.6, RDW Coeff of Frankie 13.2, Plt Count 293, MPV 8.2, Immature Gran % (Auto) 0.600, Neut % (Auto) 70.7 H, Lymph % (Auto) 18.4 L, Stokes % (Auto) 10.0, Eos % (Auto) 0.0, Baso % (Auto) 0.3, Absolute Neuts (auto) 7.4, Absolute Lymphs (auto) 1.92, Nucleated RBC % 0, Sodium 131 L, Potassium 3.3 L, Chloride 98, Carbon Dioxide 24.0, Anion Gap 9, BUN 28 H, Creatinine 0.86, Estim Creat Clear Calc 82.53, Est GFR (MDRD) Af Amer 112, Est GFR (MDRD) Non-Af 93, BUN/Creatinine Ratio 32.4 H, Glucose 125 H, Hemoglobin A1c 6.4 H, Calcium 9.2, Total Bilirubin 2.10 H, AST 22, ALT 22, Alkaline Phosphatase 76, Total Protein 6.7, Albumin 3.2, Globulin 3.5, Albumin/Globulin Ratio 0.9, Triglycerides 59, Cholesterol 179, LDL Cholesterol 123, VLDL Cholesterol 12, HDL Cholesterol 44, Procalcitonin < 0.04, TSH 1.11 10/22/23 05:57: Magnesium 2.7 H 10/22/23 06:36: POC Glucose 97 Micro: Microbiology 10/22/23 01:13 Mucosa - Nasopharyngeal Coronavirus COVID-19 PCR - Final 10/22/23 01:13 Mucosa - Nasopharyngeal Respiratory Panel (PCR) - Final Radiography Diagnostic Testing: Radiology Impression Brain CT 10/21/23 17:19 IMPRESSION: Chronic age related changes and atrophy. No acute abnormality or significant change. Head/Neck CTA 10/21/23 17:19 IMPRESSION: No acute abnormality. No large vessel occlusions. 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 Chest X-Ray 10/21/23 18:05 IMPRESSION: No definite acute or significant abnormality seen. Physical Exam Narrative Seen and examined. Patient had high-grade fever Tmax 102.6 Fahrenheit 100.1 Fahrenheit with associated sinus tachycardia. Serum sodium 131. Potassium 3.2. Patient was admitted with altered mental status, confusion and hard time expressing himself. General: Alert, Oriented x3, Cooperative and severe back pain and stiffness HEENT: Atraumatic, PERRLA, EOMI, Normocephalic Oral: No Gingival or Mucosal Lesions/ Ulcerations Neck: Supple, No JVD, Negative Carotid Bruits Chest wall/Lungs: Air entry diminished in bilateral lung bases. No crepitation/rhonchi Cardiovascular: Regular rate, Regular Rhythm, Normal S1, Normal S2, No M/G/R Abdomen: Bowel Sounds Present, Soft, Non Tender, Non-Distended : No dysuria. No renal angle tenderness. No suprapubic tenderness. Extremities: No edema, Capillary Refill Less than 3 Seconds Skin: No rashes, No breakdown Musculoskeletal: No Tenderness to Palpation of Joints or Extremities. Spine: Postop surgical scar well-healed. Tenderness present all around lumbar and paraspinal area. Muscle stiffness. ROM severely limited and painful even with slightest motion Neurological: Cranial nerves II-XII grossly intact, DTR 2+/4. No neck rigidity. Brudzinski sign positive of both legs on extension of calf muscle. Psych/Mental Status: Flat affect. Assessment & Plan Assessment/Plan (1) Acute CVA (cerebrovascular accident): PLAN: Plan The patient is a 68 y/o M is being admitted for intermittent fever after surgery along with confusion lethargy/altered mental status, severe back pain and expressive aphasia. Expressive aphasiadue to lethargy #1. Acute encephalopathy/altered mental status/expressive aphasia probably related to pain medication: Patient was found very lethargic and was on oxycodone 7.5 mg 3 times daily as needed. Patient currently is awake and alert and in severe back pain with stiffness therefore oxycodone resumed. Patient was evaluated by neurologist and does not think patient to clinical he had a stroke but probably postop infection/complication as mentioned below. CT head and CTA head and neck does not show acute abnormality or LVO. Discontinue Plavix. 2. Acute on chronic back pain with radiculopathy due to recurrent disc herniation status post repeat laminectomy L4-5 on the left with discectomy and decompression of L5 nerve root with postop fever, severe back stiffness and urinary incontinence, suspected lumbar abscess/collection, postop meningitis: Patient had back surgery as mentioned above on 07/18/2023. As per he is having on and off fever and chills after surgery. Initially he had enuresis/bedwetting and then urinary incontinence since then. Patient has very restricted mobility due to back stiffness and pain and on oxycodone 7.5 mg 3 times daily as needed. Patient put back on oxycodone 7.5 mg 3 times daily with holding parameters. MRI lumbar spine with and without contrast and MRI brain with and without contrast on. But lumbar spine takes the priority. Will hold for spinal tap as patient might have lumbar abscess or infection. Discussed with the [facility] neurologist. Patient on IV vancomycin, ampicillin and ceftriaxone, meningitis regimen. Or thospine and ID are consulted. I talked to Dr. Godoy, spine surgeon. PT and OT ordered. TSH normal. 3. Hypotonic isovolemic hyponatremia: Even though patient on IV fluid normal saline, serum sodium did not increase it remains 131. Will discontinue IV fluid. Patient might have SIADH after neurosurgery 4. Hypokalemia: Admission K+ 3.2, magnesium level normal. Potassium replaced 5. Chronic asthma: Per current list not on inhalers,PRN albuterol, HOB, IS parameters. 6. CAD: Status post CABG x 3, continue aspirin, changed to high-dose statin. #7. Diabetes mellitus type II with chronic neuropathy: Hold oral home regimen, hemoglobin A1c 6.4, glucose controlled. Accu-Chek ACH cover with Humalog sliding scale. Continue patient home chronic gabapentin regimen. #8. Hyperlipidemia: Changing to high-dose statin regimen. LDL 123. HDL normal. #9. GERD: Will continue patient home PPI and sucralfate regimen. #10. BPH: We will continue patient on Flomax regimen. #11. Tobacco Abuse: Encouraged to tobacco cessation, inpatient consultation per RT, NR if desired. Patient usually uses 1 can every 3 to 4 days. #12. Restless leg syndrome: On a regimen, if necessary may add Requip #13. DVT prophylaxis: Lovenox. #14. CODE status: Patient ALLISON is his was present and living will is currently in place. Discussed CODE status at length including difference between FULL code, DNR-CCA and DNR-CC status. Following discussions about the differences in these status, requested Full Code status. Microbiology Past 72 Hours 10/22/23 01:13 Mucosa - Nasopharyngeal Coronavirus COVID-19 PCR - Final 10/22/23 01:13 Mucosa - Nasopharyngeal Respiratory Panel (PCR) - Final Laboratory Results 10/21/23 16:52: WBC 10.3, RBC 4.60, Hgb 13.1, Hct 39.1 L, MCV 85.0, MCH 28.5, MCHC 33.5, RDW Std Deviation 41.1, RDW Coeff of Frankie 13.3, Plt Count 343, MPV 8.1, Immature Gran % (Auto) 0.400, Neut % (Auto) 69.6, Lymph % (Auto) 20.2, Stokes % (Auto) 9.6, Eos % (Auto) 0.0, Baso % (Auto) 0.2, Absolute Neuts (auto) 7.2, Absolute Lymphs (auto) 2.09, Nucleated RBC % 0, PT 13.7, INR 1.1, APTT 26.6, Sodium 131 L, Potassium 3.2 L, Chloride 97 L, Carbon Dioxide 26.0, Anion Gap 8, BUN 24 H, Creatinine 0.84, Estim Creat Clear Calc 84.49, Est GFR (MDRD) Af Amer 116, Est GFR (MDRD) Non-Af 96, BUN/Creatinine Ratio 28.5 H, Glucose 131 H, Calcium 9.5, Magnesium 1.4 L, Troponin I High Sens 28 10/21/23 18:25: Urine Color Yellow, Urine Clarity Clear, Urine pH 7.0, Ur Specific [place] 1.010, Urine Protein 30 H, Urine Glucose (UA) 50 H, Urine Ke tones 15 H, Urine Occult Blood 25 H, Urine Nitrite Negative, Urine Bilirubin Negative, Urine Urobilinogen Normal, Ur Leukocyte Esterase 25 H, Urine RBC 0 SEEN, Urine WBC 0-5 SEEN, Ur Squamous Epith Cells 0 SEEN, Urine Bacteria 0 SEEN, Urine Mucus 0 SEEN 10/21/23 18:27: Ammonia < 10.0 L 10/21/23 22:39: POC Glucose 132 H 10/22/23 05:42: WBC 10.5, RBC 4.26 L, Hgb 12.2 L, Hct 36.1 L, MCV 84.7, MCH 28.6, MCHC 33.8, RDW Std Deviation 40.6, RDW Coeff of Frankie 13.2, Plt Count 293, MPV 8.2, Immature Gran % (Auto) 0.600, Neut % (Auto) 70.7 H, Lymph % (Auto) 18.4 L, Stokes % (Auto) 10.0, Eos % (Auto) 0.0, Baso % (Auto) 0.3, Absolute Neuts (auto) 7.4, Absolute Lymphs (auto) 1.92, Nucleated RBC % 0 , Sodium 131 L, Potassium 3.3 L, Chloride 98, Carbon Dioxide 24.0, Anion Gap 9, BUN 28 H, Creatinine 0.86, Estim Creat Clear Calc 82.53, Est GFR (MDRD) Af Amer 112, Est GFR (MDRD) Non-Af 93, BUN/Creatinine Ratio 32.4 H, Glucose 125 H, Hemoglobin A1c 6.4 H, Calcium 9.2, Total Bilirubin 2.10 H, AST 22, ALT 22, Alkaline Phosphatase 76, Total Protein 6.7, Albumin 3.2, Globulin 3.5, Albumin/Globulin Ratio 0.9, Triglycerides 59, Cholesterol 179, LDL Cholesterol 123, VLDL Cholesterol 12, HDL Cholesterol 44, Procalcitonin < 0.04, TSH 1.11 10/22/23 05:57: Magnesium 2.7 H 10/22/23 06:36: POC Glucose 97 10/22/23 11:52: POC Glucose 145 H Clinical Impression(s) from Imaging Studies Brain CT 10/21/23 17:19 IMPRESSION: Chronic age related changes and atrophy. No acute abnormality or significant change. Electronically Signed: Toribio Giraldo MD at 17:34 EST , ADDENDUM: 10/21/23 1746 IMPRESSION: Chronic age related changes and atrophy. No acute abnormality or significant change. N.B. : The above Results were Read Back by Toribio Giraldo MD to Kayli Granados DO, and understanding confirmed on 10/21/2023 17:39:16 (ET). Electronically Signed: Toribio Giraldo MD at 17:34 EST , Head/Neck CTA 10/21/23 17:19 IMPRESSION: No acute abnormality. No large vessel occlusions. 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 Electronically Signed: Toribio Giraldo MD at 17:49 EST Reading Location ID and State: [facility] / [place] , Service support , ADDENDUM: 10/21/23 1758 IMPRESSION: No acute abnormality. No large vessel occlusions. 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 N.B. : The above Results were Read Back by Toribio Giraldo MD to Kayli Granados DO, and understanding confirmed on 10/21/2023 17:51:20 (ET). Electronically Signed: Toribio Giraldo MD at 17:49 EST Reading Location ID and State: [facility] / [place] , Service support , Chest X-Ray 10/21/23 18:05 IMPRESSION: No definite acute or significant abnormality seen. Electronically Signed: Toribio Giraldo MD at 19:00 EST , Charges/Coding Addendum Addendum: Total time of the visit including total time spent in counseling or coordination of care, (more than 50% of the total time, spent in obtaining medical information from nurses and other ancillary care providers,explaining to the patient about labs, imaging, diagnosis and management of active complex medical conditions), complete history taking from patient's , discussion with [facility] neurologist and orthospine surgeon Dr. Walt Whitehead, review of labs and imaging is 40 minutes. Visit Charges Inpatient E&M: 93019 Subs Hosp L3
[2023-10-22] MEDS: Baclofen 10 MG Tablet PO (11:33)
[2023-10-22] MEDS: Potassium Chloride Oral Tablet 20 MEQ 40 MEQ PO ×2 (11:36→13:50)
[2023-10-22] MEDS: 0.9% Normal Saline (1000mL) 1,000 ML 75 ML IV (11:49)
[2023-10-22 12:10] LABS: Bedside Glucose 145 mg/dL (74-106)
--- NOTE | 2023-10-22 13:29 | NEURO.CONS ---
Assessment and Plan: Neuro Assessment/Plan Assessment Examination is currently consistent with a bi-hemispheric encephalopathy (aka delerium). No focal deficits currently. History and exam more consistent with a subacute process with fluctuating symptoms. Although he has risk factors for stroke, his presentation is more consistent with a toxic-metabolic encephalopathy. Given his fevers, recent back surgery, worsening back pain, I think a post-operative infection should be ruled out in addition to a thorough assessment for other sources of infection. I have a low suspicion for encephalitis at this time but if he were to develop new neurologic deficits or seizures, then would recommend adding IV acyclovir empirically. ? Plan -ASA 81 only for now. Please discontinue Plavix 75 as currently has a low suspicion for stroke -Please obtain an MRI of the lumbar spine with and without contrast. -Please obtain an MRI of the brain with and without contrast . -Recommend systemic evaluation for infections: blood cx/UA/CXR. May consider a lumbar puncture after MRI if no obvious source of infection and no evidence of lumbar/brain abscess or mass lesion. -Ensure adequate hydration. Please evaluate and treat for causes of toxic/metabolic encephalopathy (TSH, B12, give thiamine, CBC, CMP, NH4, infectious work up) -CTA head/neck showed no severe stenosis or LVO. No need for carotid US -LDL 123/ HbA1c 6.4 -Recommend continuation of empiric antibiotics for post op GL[employer] infection while awaiting imaging result. -recommend ID consultation and spine surgery team consultation -Would hold off on additional stroke work up unless MRI confirms a stroke. HPI Consult Data Date of Consult: 10/22/23 HPI Narrative HPI Narrative: 68 yo M w PMH asthma, CAD, BPH, RLS, tobacco abuse, back pain, T2DM presents with expressive difficulties over the past two days. The patient states he was in the bath tub and couldn?t get out of the bathtub 11am on Monday. states that he wasn?t answering questions at all. Couldn?t remember year, month, or day when the squad got there. He had speaking difficulties for atleast 12 hours per the and she still feels like he is not cognitively completely recovered although he can still speak. Presented to the ED yesterday. CTH showed evidence of chronic small vessel disease, no ICH or acute infarct changes. CTA showed no LVO or significant stenosis intra/extracranially. Was given DAPT and admitted for stroke evaluation. Has been having fevers overnight with a Tmax of 102.9. Today, feels like he is better today but still not back to normal states since on Monday he started acting strange when on the drive home he was not able to drive straight. He went to bed at 2pm that day.? Has been having severe back pain since surgery in July. Has lost significant weight with a poor appetite since the surgery. He has been requiring narcotics for pain and started a new muscle relaxer in the past month. ? states he has been having intermittent fevers at home since surgery in July up to 101F. She states they have seen his back surgeon but the patient has not had any repeat imaging of his lower back since surgery. [facility] Medical History (Updated 10/21/23 @ 20:[address] Sara Reaves MD) Agent orange exposure Alcohol use Ambulates with cane Arthritis Arthropathy of cervical facet joint Asthma Atherosclerotic heart disease of [place] coronary artery without angina pectoris Back pain Bilirubinuria Cancer Cardiology follow-up encounter Cervical spondylosis Chondromalacia of both patellae Chondromalacia, left knee Chondromalacia, right knee Contact with or exposure to other viral diseases COVID-19 virus detected (11/19/20) Degeneration of cervical disc without myelopathy Degeneration of intervertebral disc of lumbosacral region Diabetes Fusion of spine, cervical region High cholesterol (~08/21/23) History of echocardiogram History of IBS History of pain when walking History of steroid therapy History of stress test Hyperlipemia Injury of head and neck Left knee DJD Nonrheumatic aortic (valve) stenosis with insufficiency Obesity Opioid dependence Prostate disease Radiculopathy of lumbosacral region Restless legs Right knee DJD Shortness of breath on exertion Smokeless tobacco use Spinal stenosis of lumbosacral region Spondylosis of lumbosacral region without myelopathy or radiculopathy Syncope Tear of medial meniscus of right knee Type 2 diabetes mellitus Wears hearing aid Home Medications aspirin 81 mg tablet,delayed release 81 mg PO DAILY [facility] 12/23/15 [History Last Taken 07/11/23] multivitamin 1 tab PO DAILY supplement 07/09/19 [History Last Taken 07/17/23 06:00] baclofen 10 mg tablet 10 mg PO TID PRN PRN Muscle Spasm 05/14/20 [History Last Taken 07/17/23 18:00] gabapentin 100 mg capsule 200 mg PO TID neuropathy 05/14/20 [History Last Taken 07/17/23 18:00] naproxen sodium 220 mg capsule (Aleve) 220 mg PO BID PRN Pain 02/04/22 [History Last Taken 07/17/23 18:00] albuterol sulfate 90 mcg/actuation aerosol inhaler 1 - 2 puff inhalation Q4H PRN PRN Wheezing #8.5 grams 04/21/22 [Rx Last Taken Unknown] handicap placard #1 ea 04/21/22 [Rx Last Taken Unknown] blood sugar diagnostic (FreeStyle Lite Strips) #100 ea 09/15/22 [Rx Last Taken Unknown] blood-glucose meter (FreeStyle Lite Meter kit) #1 ea 09/15/22 [Rx Last Taken Unknown] fluticasone propionate 50 mcg/actuation nasal spray,suspension 1 - 2 spray intranasal BID PRN allergies, congestion #16 grams 04/27/23 [Rx Last Taken 07/18/23 03:00] metformin 500 mg tablet 500 mg PO BID DIABETES #180 tabs 04/27/23 [Rx Last Taken 07/17/23 18:00] linaclotide 72 mcg capsule 72 mcg PO DAILY IBS #90 caps 06/27/23 [Rx Last Taken 07/17/23 06:00] acetaminophen 500 mg capsule 1,000 mg PO Q6H PRN pain 07/18/23 [History Last Taken 07/17/23 18:00] atorvastatin 40 mg tablet 40 mg PO QHS CHOLESTEROL #90 tabs 08/21/23 [Rx Last Taken Unknown] medical marijuana card PO unknown 08/21/23 [History Last Taken Unknown] omeprazole 40 mg capsule,delayed release 40 mg PO DAILY PRN Reflux #30 caps 08/21/23 [Rx Last Taken Unknown] trazodone 50 mg tablet 50 - 100 mg (1 - 2 x 50 mg) PO QHS sleep #90 tabs 08/21/23 [Rx Last Taken Unknown] sucralfate 1 gram tablet (Carafate) 1 g PO QACHS #30 tabs 09/27/23 [Rx Last Taken Unknown] metoclopramide HCl 10 mg tablet (Reglan) 10 mg PO Q8H PRN PRN nausea and vomiting #14 tabs 10/01/23 [Rx Last Taken Unknown] ondansetron 4 mg disintegrating tablet 4 mg PO Q6H PRN nausea and vomiting #20 tabs 10/03/23 [Rx Last Taken Unknown] oxycodone 5 mg tablet 7.5 mg PO TID PRN PRN pain 10/21/23 [History Last Taken Unknown] tamsulosin 0.4 mg capsule 0.4 mg PO QHS PRN urinary retention 10/21/23 [History Last Taken Unknown] Allergy/AdvReac Type Severity Reaction Status Date / Time adhesive tape Allergy Rash Verified 10/21/23 17:52 sertraline [From Zoloft] AdvReac Unknown Verified 10/21/23 17:52 Family History (Updated 10/21/23 @ 20:[address] Sara Reaves MD) Brother Heart disease Myocardial infarction 60's CAD (coronary artery disease) Father Myocardial infarction 65 CAD (coronary artery disease) Mother HLD (hyperlipidemia) when son was 16 following MVA, healthy aside HLD. Surgical History H/O cervical spine surgery (08/2020) H/O coronary artery bypass surgery (09/14/11) History of back surgery History of carpal tunnel release History of herniorrhaphy History of lateral meniscus repair of right knee (~2021) History of left heart catheterization (09/09/11) Hx laparoscopic cholecystectomy (~11/2022) Hx of bilateral cataract extraction Status post discectomy for herniated nucleus pulposus Social History (Updated 10/21/23 @ 20:[address] Sara Reaves MD) household members: spouse Smoking Status: Never smoker Smokeless tobacco user: chewing tobacco alcohol intake: current alcohol intake frequency: a few times a month substance use type: does not use caffeine: Yes Type: coffee Number of servings: 2 Vital Signs Vital Signs Vital Signs: 10/21/23 17:37 10/21/23 17:41 10/21/23 17:48 Temperature 98.0 F Temperature Source Oral Pulse Rate 82 82 Respiratory Rate 16 15 Respiratory Effort Respiratory Depth Respiratory Pattern Blood Pressure 136/82 H 136/73 H Blood Pressure Mean 100 94 Blood Pressure Source Blood Pressure Position Blood Pressure Location Pulse Ox 98 96 Oxygen Delivery Method Room Air Room Air Room Air 10/21/23 18:17 10/21/23 19:15 10/21/23 19:30 Temperature Temperature Source Pulse Rate 81 79 77 Respiratory Rate 17 16 19 H Respiratory Effort Respiratory Depth Respiratory Pattern Blood Pressure 131/86 H 123/73 H 135/75 H Blood Pressure Mean 101 89 95 Blood Pressure Source Blood Pressure Position Blood Pressure Location Pulse Ox 97 97 95 Oxygen Delivery Method Room Air Room Air Room Air 10/21/23 19:50 10/21/23 20:38 10/22/23 00:38 Temperature 97.6 F L 98.8 F 102.6 F H Temperature Source Oral Oral Pulse Rate 78 82 85 Respiratory Rate 21 H 20 H 20 H Respiratory Effort Respiratory Depth Respiratory Pattern Blood Pressure 135/75 H 121/72 H 134/53 H Blood Pressure Mean 95 88 80 Blood Pressure Source Monitor Monitor Blood Pressure Position Semi-Fowlers Left Lateral Blood Pressure Location Right Arm Right Arm Pulse Ox 95 97 98 Oxygen Delivery Method Room Air Room Air 10/22/23 03:24 10/22/23 01:05 10/22/23 04:38 Temperature 99.0 F 99.7 F H Temperature Source Oral Oral Pulse Rate 95 Respiratory Rate 18 Respiratory Effort Respiratory Depth Respiratory Pattern Blood Pressure 117/67 Blood Pressure Mean 83 Blood Pressure Source Monitor Blood Pressure Position Semi-Fowlers Blood Pressure Location Left Arm Pulse Ox 97 97 Oxygen Delivery Method Room Air Room Air 10/22/23 08:30 10/22/23 10:00 Temperature 100.1 F H Temperature Source Oral Pulse Rate 110 H Respiratory Rate 16 Respiratory Effort Normal Non-Labored Respiratory Depth Normal Respiratory Pattern Normal Blood Pressure 124/73 H Blood Pressure Mean 90 Blood Pressure Source Monitor Blood Pressure Position Semi-Fowlers Blood Pressure Location Left Arm Pulse Ox 97 Oxygen Delivery Method Room Air Room Air Weight Weight: 82.2 kg Body Mass Index (BMI) 25.9 EEG Results Procedure Details EEG Procedure Details: JARET FIGUEROA is a 68 year old M with a past medical history of , who presents for evaluation of Electroencephalogram on DATE at TIME NIHSS NIHSS Nursing Documentation NIHSS Nursing Documentation: NIHSS: Ischemic Stroke/TIA Start: 10/21/23 20:32 Text: For PCU Patients: NIH and Neuro Check every 4 Status: Active hours and PRN Freq: [id number] Protocol: Activity Type Activity Date Activity User E-sign Co-sign Detail Recorded Client Recorded Date Recorded By Document 10/22/23 12:30 Desktop 10/22/23 13:28 10/22/23 12:30 NIH Stroke Scale [NIHSS] A score of 0 is normal or asymptomatic . Total possible score is 42. Inpatient: RN or Physician to activate a stroke alert for onset of new stroke symptoms or with NIHSS increase >/= 3 points. Following change in neurological status, NIHSS will be performed per physician order or more frequently PRN. -1a. Level of Consciousness Alert; keenly responsive -1b. LOC Questions Answers BOTH questions correctly. -1c. LOC Commands Performs both tasks correctly . -2. Best Gaze Normal -3. Visual No visual loss -4. Facial Palsy Normal symmetrical movements -5a. Left Arm No drift; arm holds 90 (or 45 ) degrees for full 10 seconds -5b. Right Arm No drift; arm holds 90 (or 45 ) degrees for full 10 seconds -6a. Left Leg Drift; leg falls by the end of 5- seconds, but does not hit bed -6b. Right Leg Drift; leg falls by the end of 5- seconds, but does not hit bed -7. Limb Ataxia Absent -8. Sensory Normal; no sensory loss -9. Best Language Mild-to- moderate aphasia; -10. Dysarthria Mild-to- moderate dysarthria; -11. Extinction and Inattention No abnormality -Total 4 Query Text:A score of 0 is normal or asymptomatic. Total possible score is 42 . ED: Notify Physician for NIHSS increase by > / = 3 points. Inpatient: RN or Physician to activate a stroke alert for NIHSS increase of > / = 3 points. Coma Scale [Assess] -Eye Opening Spontaneous -Motor Obeys Commands -Verbal Confused [Total] -Coma Scale Total 14 Physical Exam Narrative Exam MS-awake, mildly drowsy but arouses with minor stim, oriented x 3, follows commands, mildly inattentive, bradyphrenic, able to name, able to repeat, able to read, fluent speech, no dysathria, no hemiattention CN-VFF,? no gaze dev, EOMI, no facial droop, nml facial sensation M-antigravity in all extremities without drift S-nml to LT in all extremities C- no appendicular dysmetria Lab / Micro Data 10/22/23 05:42 10/22/23 05:42 Labs: Laboratory Results - last 24 hr 10/21/23 16:52: WBC 10.3, RBC 4.60, Hgb 13.1, Hct 39.1 L, MCV 85.0, MCH 28.5, MCHC 33.5, RDW Std Deviation 41.1, RDW Coeff of Frankie 13.3, Plt Count 343, MPV 8.1, Immature Gran % (Auto) 0.400, Neut % (Auto) 69.6, Lymph % (Auto) 20.2, [place] % (Auto) 9.6, Eos % (Auto) 0.0, Baso % (Auto) 0.2, Absolute Neuts (auto) 7.2, Absolute Lymphs (auto) 2.09, Nucleated RBC % 0, PT 13.7, INR 1.1, APTT 26.6, Sodium 131 L, Potassium 3.2 L, Chloride 97 L, Carbon Dioxide 26.0, Anion Gap 8, BUN 24 H, Creatinine 0.84, Estim Creat Clear Calc 84.49, Est GFR (MDRD) Af Amer 116, Est GFR (MDRD) Non-Af 96, BUN/Creatinine Ratio 28.5 H, Glucose 131 H, Calcium 9.5, Magnesium 1.4 L, Troponin I High Sens 28 10/21/23 18:25: Urine Color Yellow, Urine Clarity Clear, Urine pH 7.0, Ur Specific [place] 1.010, Urine Protein 30 H, Urine Glucose (UA) 50 H, Urine Ketones 15 H, Urine Occult Blood 25 H, Urine Nitrite Negative, Urine Bilirubin Negative, Urine Urobilinogen Normal, Ur Leukocyte Esterase 25 H, Urine RBC 0 SEEN, Urine WBC 0-5 SEEN, Ur Squamous Epith Cells 0 SEEN, Urine Bacteria 0 SEEN, Urine Mucus 0 SEEN 10/21/23 18:27: Ammonia < 10.0 L 10/21/23 22:39: POC Glucose 132 H 10/22/23 05:42: WBC 10.5, RBC 4.26 L, Hgb 12.2 L, Hct 36.1 L, MCV 84.7, MCH 28.6, MCHC 33.8, RDW Std Deviation 40.6, RDW Coeff of Frankie 13.2, Plt Count 293, MPV 8.2, Immature Gran % (Auto) 0.600, Neut % (Auto) 70.7 H, Lymph % (Auto) 18.4 L, [place] % (Auto) 10.0, Eos % (Auto) 0.0, Baso % (Auto) 0.3, Absolute Neuts (auto) 7.4, Absolute Lymphs (auto) 1.92, Nucleated RBC % 0, Sodium 131 L, Potassium 3.3 L, Chloride 98, Carbon Dioxide 24.0, Anion Gap 9, BUN 28 H, Creatinine 0.86, Estim Creat Clear Calc 82.53, Est GFR (MDRD) Af Amer 112, Est GFR (MDRD) Non-Af 93, BUN/Creatinine Ratio 32.4 H, Glucose 125 H, Hemoglobin A1c 6.4 H, Calcium 9.2, Total Bilirubin 2.10 H, AST 22, ALT 22, Alkaline Phosphatase 76, Total Protein 6.7, Albumin 3.2, Globulin 3.5, Albumin/Globulin Ratio 0.9, Triglycerides 59, Cholesterol 179, LDL Cholesterol 123, VLDL Cholesterol 12, HDL Cholesterol 44, Procalcitonin < 0.04, TSH 1.11 10/22/23 05:57: Magnesium 2.7 H 10/22/23 06:36: POC Glucose 97 10/22/23 11:52: POC Glucose 145 H Micro: Microbiology 10/22/23 01:13 Mucosa - Nasopharyngeal Coronavirus COVID-19 PCR - Final 10/22/23 01:13 Mucosa - Nasopharyngeal Respiratory Panel (PCR) - Final Imaging Radiology Impression Brain CT 10/21/23 17:19 IMPRESSION: Chronic age related changes and atrophy. No acute abnormality or significant change. Electronically Signed: Toribio Giraldo MD at 17:34 EST , ADDENDUM: 10/21/23 0722 IMPRESSION: Chronic age related changes and atrophy. No acute abnormality or significant change. N.B. : The above Results were Read Back by Toribio Giraldo MD to Kayli Granados DO, and understanding confirmed on 10/21/2023 17:39:16 (ET). Electronically Signed: Toribio Giraldo MD at 17:34 EST Reading Location ID and State: [address] [place] [address] , Service support , Head/Neck CTA 10/21/23 17:19 IMPRESSION: No acute abnormality. No large vessel occlusions. 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 Electronically Signed: Toribio Giraldo MD at 17:49 EST Reading Location ID and State: [address] [place] [address] , Service support , ADDENDUM: 10/21/23 1758 IMPRESSION: No acute abnormality. No large vessel occlusions. 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 N.B. : The above Results were Read Back by Toribio Girlado MD to Kayli Granados DO, and understanding confirmed on 10/21/2023 17:51:20 (ET). Electronically Signed: Toribio Giraldo MD at 17:49 EST Reading Location ID and State: [address] [place] [address] , Service support , Chest X-Ray 10/21/23 18:05 IMPRESSION: No definite acute or significant abnormality seen. Electronically Signed: Toribio Giraldo MD at 19:00 EST Reading Location ID and State: [address] [place] [address] , Service support , Active Medications Active Medications Active Medications: Current Medications Generic Name Dose Route Start Last Admin Trade Name Freq PRN Reason Stop Dose Admin Acetaminophen 1,000 mg 10/22/23 14:00 Acetaminophen 500 Mg Tablet PO Q8 AMADO Al Hydroxide/Mg Hydroxide 30 ml 10/21/23 20:32 Mag Hydrox/Al Hydrox/Simeth 30 Ml Udc PO Q6H PRN PRN Gastric Burning Albuterol Sulfate 2.5 mg 10/21/23 20:32 Albuterol 2.5 Mg/3 Ml Vial.Neb. INHALATION Q2H PRN PRN Dyspnea, wheezing Aspirin 81 mg 10/22/23 10:00 10/22/23 08:46 Aspirin E.C. 81 Mg Tablet PO 81 mg DAILY AMADO Administration Atorvastatin Calcium 80 mg 10/21/23 22:00 10/21/23 22:34 Atorvastatin Calcium 80 Mg Tablet PO 80 mg QHS AMADO Administration Baclofen 10 mg 10/21/23 20:32 10/22/23 11:33 Baclofen 10 Mg Tablet PO 10 mg TID PRN PRN Administration Muscle Spasm Clopidogrel Bisulfate 75 mg 10/22/23 10:00 10/22/23 08:46 Clopidogrel Bisulfate 75 Mg Tablet PO 75 mg DAILY AMADO Administration Dextrose 0 gm 10/21/23 20:32 Dextrose 50%-Water 25 Gm/50 Ml Disp.Syrin IV X1 PRN HYPOGLYCEMIA Protocol Enoxaparin Sodium 40 mg 10/22/23 10:00 10/22/23 08:45 Enoxaparin 40 Mg/0.4 Ml Syringe SC 40 mg DAILY AMADO Administration Fluticasone Propionate 1 - 2 spray 10/21/23 20:32 Fluticasone 0.05% 1 [place] Nasal.Sry NASAL BID PRN allergies, congestion Gabapentin 200 mg 10/21/23 22:00 10/22/23 06:38 Gabapentin 100 Mg Capsule PO 200 mg TID AMADO Administration Glucagon 1 mg 10/21/23 20:32 Glucagon 1 Mg/Ml Syringe IM X1 PRN HYPOGLYCEMIA Guaifenesin 20 ml 10/21/23 20:32 Guaifenesin 10 Ml Udc (200mg/10ml) PO Q4H PRN PRN COUGH Hydralazine HCl 5 mg 10/21/23 20:32 Hydralazine 20 Mg/Ml Vial IV Q30M PRN to maintain BP goals Sodium Chloride 250 mls @ 15 mls/hr 10/21/23 20:37 IV .[id number] PRN Saline Flush Sodium Chloride 250 mls @ 15 mls/hr 10/21/23 20:37 IV .[id number] PRN Additional IVPB Infusion Ceftriaxone Sodium 2 gm/ 50 mls @ 100 mls/hr 10/22/23 06:25 10/22/23 11:55 Sodium Chloride IV Infused Q12 AMADO Infusion Vancomycin IV-PHARMACY TO DOSE 500 mls @ 250 mls/hr 10/22/23 06:22 1 each/ Sodium Chloride IV X1 PRN Rx to Dose Protocol Ampicillin Sodium 2 gm/ Sodium 100 mls @ 200 mls/hr 10/22/23 08:30 10/22/23 10:32 Chloride IV Infused Q4H [facility] Infusion Vancomycin HCl 1,500 mg/ 530 mls @ 250 mls/hr 10/22/23 20:00 Sodium Chloride IV Q12H AMADO Sodium Chloride 1,000 mls @ 75 mls/hr 10/22/23 10:50 10/22/23 11:49 IV 10/23/23 00:09 75 mls/hr .[id number] [facility] Administration Insulin Human Lispro 0 unit 10/21/23 22:00 10/22/23 11:55 Insulin Lispro 100 Unit/Ml Insuln.Pen SC Not Given ACHS [facility] Protocol Labetalol HCl 10 - 20 mg 10/21/23 20:32 Labetalol (Prefilled) 20 Mg/4 Ml IV Q10M PRN PRN to Maintain BP Goals Linaclotide 72 mcg 10/22/23 10:00 Linaclotide 72 Mcg Capsule PO DAILY [facility] Melatonin 3 mg 10/21/23 20:32 Melatonin 3 Mg Tablet PO QHS PRN PRN INSOMNIA Ondansetron HCl 4 mg 10/21/23 20:32 Ondansetron 4 Mg/2 Ml Vial IV Q8H PRN PRN NAUSEA/VOMITING Oxycodone HCl 7.5 mg 10/22/23 13:19 Oxycodone 5 Mg Tablet PO TID PRN PRN pain Pantoprazole Sodium 40 mg 10/21/23 20:32 Pantoprazole Sodium 40 Mg Tablet PO DAILY PRN Reflux Potassium Chloride 40 meq 10/22/23 11:00 10/22/23 11:36 Potassium Chloride Oral Tablet 20 Meq PO 10/22/23 14:01 40 meq Q3H [facility] Administration Prochlorperazine Edisylate 5 mg 10/21/23 20:32 Prochlorperazine 10 Mg/2 Ml Vial IV Q4H PRN PRN Breakthrough Nausea/Vomiting Senna/Docusate Sodium 2 tablet 10/21/23 20:32 Senna/Docusate Sodium 1 Tablet PO BID PRN PRN Constipation Sodium Chloride 10 - 40 ml 10/21/23 20:37 0.9% Saline Lock 10 Ml Syringe IV UD PRN SALINE FLUSH Sucralfate 1 gm 10/21/23 22:00 10/22/23 11:34 Sucralfate 1 Gm Tablet PO 1 gm 1HR_ACHS AMADO Administration Tamsulosin HCl 0.4 mg 10/21/23 22:00 10/21/23 22:34 Tamsulosin Hcl 0.4 Mg Capsule PO 0.4 mg QHS AMADO Administration Tamsulosin HCl 0.4 mg 10/22/23 13:19 Tamsulosin Hcl 0.4 Mg Capsule PO QHS PRN urinary retention Vancomycin Protocol 1 lab 10/23/23 17:30 Vancomycin Trough/Random Due 10/23/23 21:30 DAILY AMADO
[2023-10-22] MEDS: Acetaminophen 500 MG Tablet 1000 MG PO ×2 (13:50→20:44)
[2023-10-22] MEDS: oxyCODONE 5 MG Tablet 7.5 MG PO ×2 (13:50→20:43)
[2023-10-22] MEDS: Folic Acid 1 MG Tablet PO (15:15)
[2023-10-22] MEDS: Thiamine Hydrochloride 100 MG Tablet PO (15:15)
[2023-10-22 18:17] LABS: Bedside Glucose 139 mg/dL (74-106)
[2023-10-22] MEDS: Ketorolac 15 MG/ML Vial IV (18:42)
[2023-10-22] MEDS: Senna/Docusate Sodium 1 Tablet 2 TABLET PO ×2 (18:43→20:44)
[2023-10-22] MEDS: Pantoprazole Sodium 40 MG Tablet PO (18:43)
--- NOTE | 2023-10-22 20:35 | EKG12_ITS ---
Test Reason : CP Blood Pressure : / mmHG Vent. Rate : 071 BPM Atrial Rate : 071 BPM P-R Int : 160 ms QRS Dur : 104 ms QT Int : 402 ms P-R-T Axes : 038 -11 023 degrees QTc Int : 436 ms Normal sinus rhythm Normal ECG When compared with ECG of 21-OCT-2023 17:37, MANUAL COMPARISON REQUIRED, DATA IS UNCONFIRMED Confirmed by Jefferson Morrow ([id number]), editor school photograph ROSALIE FERRO ([id number]) on 10/24/2023 11:39:21 AM Referred By: Confirmed By:Jefferson Morrow
[2023-10-22] MEDS: Vancomycin HCl 1,500 MG in 0.9% Normal Saline (500mL Bag) 500 ML 250 MG IV (20:40)
[2023-10-22] MEDS: Tamsulosin HCl 0.4 MG Capsule 0.400000000000000022 MG PO (20:42)
[2023-10-22] MEDS: Atorvastatin Calcium 80 MG Tablet PO (20:43)
[2023-10-22] MEDS: Polyethylene Glycol 3350 17 GM PACKET PO (20:43)
[2023-10-22 23:08] LABS: Bedside Glucose 116 mg/dL (74-106)
[2023-10-23] VITALS (8 sets, daily range): BP systolic 102–147; BP diastolic 66–86; PULSE 63–96; RESP 16–20; TEMP 36.3–37.4; O2SAT 95–99; BMI 26.9
[2023-10-23] MEDS: Ampicillin 2 GM in 0.9% Normal Saline (100mL MB+) 100 ML IV ×4 (00:38→13:47)
[2023-10-23] MEDS: Ketorolac 15 MG/ML Vial IV ×3 (03:21→20:46)
[2023-10-23] MEDS: Gabapentin 100 MG Capsule 200 MG PO ×3 (05:30→20:55)
[2023-10-23] MEDS: Acetaminophen 500 MG Tablet 1000 MG PO ×3 (05:31→20:47)
[2023-10-23] MEDS: oxyCODONE 5 MG Tablet 7.5 MG PO (05:34)
--- NOTE | 2023-10-23 05:40 | RAD_ITS ---
INDICATION: Dyspnea, cough EXAMINATION/TECHNIQUE: X-RAY - XR Chest 1 View COMPARISON: 10/21/2023. FINDINGS: LINES/DEVICES: None. LUNGS: No consolidation or evidence of an effusion. No evidence of edema or a pneumothorax. MEDIASTINUM AND CARDIOVASCULAR STRUCTURES: Cardiac silhouette is normal in size and contour. Stable postsurgical changes. BONES AND SOFT TISSUES: No acute abnormality. RAD/Chest 1 View (Portable) IMPRESSION: No evidence of acute cardiopulmonary disease. Electronically Signed: Julio Soto DO at 6:54 EDT ,
[2023-10-23] MEDS: Sucralfate 1 GM Tablet PO ×3 (06:39→18:02)
[2023-10-23 06:45] LABS: Absolute Lymphocyte Count 1.13 X10^3/uL (0.83-4.51); Absolute Neutrophil Count 5.9 X10^3/uL (2.0-7.7); Basophil# 0.02 X10^3/uL; Basophil% 0.3 % (0-1); Eosinophil# 0.03 X10^3/uL; Eosinophils% 0.4 % (0-5); Hematocrit 33.3 % (40-54); Hemoglobin 11.2 g/dL (13.0-16.5); Lymphocyte # 1.13 X10^3/ul (0.83-4.51); Lymphocyte % 14.6 % (19-41); Mean Corp Hgb Conc 33.6 g/dL (32-36); Mean Corpuscular Hgb 28.6 pg (27.0-32.0); Mean Corpuscular Volume 84.9 fL (80-94); Mean Platelet Vol. 8.1 fl (6.2-12.0); Monocyte# 0.63 X10^3/uL; Monocyte% 8.2 % (0-10); NRBC Flagged by Analyzer 0 % (0-5); Neutrophil # 5.88 X10^3/uL (2.7-7.7); Neutrophil % 76.1 % (47-70); Platelet Count 256 K/mm3 (150-450); RBC Distribution Width CV 13.3 % (11.6-14.6); RBC Distribution Width SD 41.1 fl (35.1-43.9); Red Blood Count 3.92 M/mm3 (4.6-6.2); White Blood Count 7.7 K/mm3 (4.4-11.0)
[2023-10-23 06:59] LABS: Bedside Glucose 104 mg/dL (74-106)
[2023-10-23 07:24] LABS: ALB/GLOB Ratio 0.9 RATIO (0.9-2.4); AST(SGOT) 17 U/L (15-37); Alanine Aminotransfer ALT/SGPT 20 U/L (16-61); Albumin, Serum 2.8 g/dL (3.2-5.0); Alkaline Phosphatase 69 U/L (45-117); Anion Gap 7 (5-15); BUN 20 mg/dL (7-18); BUN/Creat Ratio 29.8 RATIO (10-20); Chloride 102 mmol/L (98-107); Creatinine, Serum 0.67 mg/dL (0.70-1.30); EST Glomerular Filtration Rate 124 mL/min (>60); Est Glom Filt Rate - Afr Amer 150 mL/min (>60); Estimated Creatinine Clearance 88.72 ml/min; Glucose 107 mg/dL (74-106); Potassium 3.8 mmol/L (3.5-5.1); Protein, Total 5.8 g/dL (6.4-8.2); Sodium Level 132 mmol/L (136-145)
[2023-10-23 07:55] LABS: Vitamin B12 177 pg/mL (211-911)
[2023-10-23] MEDS: Vancomycin HCl 1,500 MG in 0.9% Normal Saline (500mL Bag) 500 ML 250 MG IV (08:36)
--- NOTE | 2023-10-23 09:23 | MRI_ITS ---
STUDY: MRI BRAIN WITHOUT CONTRAST REASON FOR EXAM: Male, 68 years old. R/O mengitis. -- lumbar mengiitis TECHNIQUE: Standardized multiplanar fat and water weighted pulse sequences were obtained. Mild motion artifact is present. COMPARISON: Head CT dated October 21, 2023. MRI of the brain dated March 21, 2023 FINDINGS: There is mild cerebral atrophy with widening of the extra-axial spaces and ventricular dilatation. There are a limited number of small white matter hyperintensities, distributed throughout the deep white matter tracts of the cerebral hemispheres, consistent with mild chronic white matter ischemic changes. There is no evidence for recent intracranial ischemia or other cause of cytotoxic edema on diffusion weighted imaging (DWI). Normal T2* images of the brain without demonstrated susceptibility artifact. There is no demonstrated hemosiderin stain. No extra-axial fluid collection or midline shift or hydrocephalus is present. Normal bilateral basal ganglia. Normal thalami. There is no extra-axial fluid accumulation. Normal flow voids within the major intracranial circulation suggesting patency by spin echo criteria. Normal sella turcica, pituitary gland, infundibular stalk, optic chiasm and hypothalamus. Normal tectal plate and pineal gland. Normal midbrain, toñito and medulla. Normal cerebellum. Normal basal cisterns. Normal bilateral temporal bones. Normal bilateral internal auditory canals. No demonstrated orbital abnormality, within the constraints of a routine brain study. Normal visualized paranasal sinuses. Normal calvarium and skull base. Normal visualized soft tissue structures. Normal visualized upper cervical spine. MRI/Brain without Contrast IMPRESSION: 1. Involutional and chronic ischemic changes of the brain, as described above. 2. No intravenous contrast was administered, therefore the meninges cannot be evaluated on this study. No obvious pachymeningeal hyperintensity or thickening is seen. Electronically Signed: Arnav Nobles MD at 11:55 EDT ,
--- NOTE | 2023-10-23 09:23 | MRI_ITS ---
STUDY: MRI LUMBAR SPINE WITHOUT CONTRAST REASON FOR EXAM: Male, 68 years old. lumbar abscess/collection.Intraop dural leak -- Patient could not hold still, FEVER, ALTERED MENTAL STATUS, BACK PAIN ,INCONTINENCE, HX BACK SURGERY 07/18/23, PREV MRI 05/27/23 TECHNIQUE: Standardized fat and water weighted pulse sequences were obtained in the sagittal and axial planes. COMPARISON: MRI the lumbar spine dated May 27, 2023. X-ray the lumbar spine dated August 24, 2023. CT lumbar spine dated August 14, 2023 FINDINGS: Newly developed moderate marrow edema throughout the L4 and L5 vertebral bodies which was not present on May 27, 2023 study. Also interval development of mild liquefaction within the disc at L4-L5 and mild cortical erosion of the endplates, all findings consistent with vertebral osteomyelitis and discitis. The disc spaces also narrowed compared to the prior MRI as well as the prior CT of the lumbar spine dated August 14, 2023 and is moderately narrowed compared to mild to moderate narrowing on those studies. There is no demonstrated paraspinal abscess or edema or swelling. Pre-existing fatty atrophy and postoperative changes of the posterior paraspinous muscles at L3-L4 and L4-L5 are unchanged from the prior exam. Stable posterior decompressive defects and surgical scarring at the same levels. No epidural fluid collections are present. No visualized extradural CSF fluid on the current study. Epidural leak remains a concern on lumbar puncture followed by a nuclear medicine SPECT exam can be obtained to look for a small dural tear or leak not visualized on this study. Normal lumbar lordosis. Moderate levoscoliosis is present. Normal conus medullaris that terminates at the L1 level. T12-L1: Normal endplates. Normal disc height, hydration and morphology. Normal bilateral facet joints. Normal central canal and bilateral lateral recesses. Normal bilateral intervertebral neural foramina. L1-2: Mild to moderate disc space narrowing with diffuse disc desiccation and mild annular bulging. Mild anterior endplate spurring. Mild facet joint hypertrophy. Normal bilateral facet joints. Normal central canal and bilateral lateral recesses. Normal bilateral intervertebral neural foramina. L2-3: Severe disc space narrowing with a diffuse disc osteophyte complex. Moderate facet joint hypertrophy and moderate bilateral foraminal stenosis with nerve root compression. Normal central canal and bilateral lateral recesses. Retrolisthesis of L2 on L3 of 2 to 3 mm. L3-4: Severe disc space narrowing with moderate Modic endplate degenerative signal. Diffuse disc osteophyte complex. Stable posterior surgical decompressive defect and scarring in the paraspinous soft tissues. Mild to moderate facet joint hypertrophy. Small low signal focus in the right neural foramen either representing fibrotic material or a small sequestered focus of extruded disc material which compresses the exiting nerve root. Moderate right foraminal stenosis with nerve root compression. Mild left foraminal stenosis. Normal central canal and bilateral lateral recesses. L4-5: Newly developed moderate marrow edema throughout the L4 and L5 vertebral bodies which was not present on May 27, 2023 study. Also interval development of mild liquefaction within the disc at L4-L5 and mild cortical erosion of the endplates, all findings consistent with vertebral osteomyelitis and discitis. The disc spaces also narrowed compared to the prior MRI as well as the prior CT of the lumbar spine dated August 14, 2023 and is moderately narrowed compared to mild to moderate narrowing on those studies. There is no demonstrated paraspinal abscess or edema or swelling. Stable posterior decompressive surgical defect. Moderate facet joint hypertrophy and degeneration. Severe left foraminal stenosis with nerve root compression. Mild to moderate right foraminal stenosis with posterior nerve root impingement. Normal central canal and bilateral lateral recesses. L5-S1: Normal endplates. Diffuse disc desiccation. Normal disc height and morphology. Normal bilateral facet joints. Normal central canal and bilateral lateral recesses. Normal bilateral intervertebral neural foramina. Normal visualized sacral ala. There is mild paraspinal muscular atrophy. MRI/Spine Lumbar (Routine) IMPRESSION: 1. Newly developed moderate marrow edema throughout the L4 and L5 vertebral bodies which was not present on May 27, 2023 study. Also interval development of mild liquefaction within the disc at L4-L5 and mild cortical erosion of the endplates, all findings consistent with vertebral osteomyelitis and discitis. The disc spaces also narrowed compared to the prior MRI as well as the prior CT of the lumbar spine dated August 14, 2023 and is moderately narrowed compared to mild to moderate narrowing on those studies. There is no demonstrated paraspinal abscess or edema or swelling. 2. No visualized epidural fluid collections 3. Multilevel degenerative changes, as described above. Electronically Signed: Arnav Nobles MD at 11:52 EDT ,
--- NOTE | 2023-10-23 11:20 | CASEMGMT ---
RN CM Face to Face with patient for initial transition planning/care coordination assessment. RN CM introduced self and role at [facility]. Patient lying in bed, alert and oriented, at bedside. Patient and willing to participate in assessment and is able to answer all questions appropriately. Care providers, pharmacy, and demographics verified. PCP: Chema Specialists: [facility] Preferred Pharmacy: [facility] Retail Insurance: [employer] Prescription Benefit: yes Living Will/HPOA: yes, Alethea Bates LNOK: Living Arrangements: Patient lives with in a 2 story home with bed and bath on first floor and 1 step to enter the home. Patient states he was independent at home. Transportation: self, DME/HHC: Patient has shower chair, cane, walker, glucometer at home. No previous HHC or SNF Patient wishes to discharge home but willing to go to SNF if needed, will monitor progress with therapy and course of treatment. Patient and state they have no further needs or concerns at this time. CM to follow for discharge planning needs that may arise. Disposition Plan: TBD, anticipate SNF vs HHC pending course of treatment and progress with therapy. Rena RUSHING, RN, CM
[2023-10-23] MEDS: Bisacodyl 5 MG Tablet 10 MG PO (11:46)
[2023-10-23] MEDS: oxyCODONE 5 MG Tablet 10 MG PO ×2 (11:46→18:02)
[2023-10-23] MEDS: Bisacodyl 10 MG Suppository RC (11:46)
[2023-10-23] MEDS: Enoxaparin 40 MG/0.4 ML Syringe SC (11:49)
[2023-10-23] MEDS: Polyethylene Glycol 3350 17 GM PACKET PO (11:49)
[2023-10-23] MEDS: Senna/Docusate Sodium 1 Tablet 2 TABLET PO ×2 (11:50→20:48)
[2023-10-23] MEDS: Thiamine Hydrochloride 100 MG Tablet PO (11:51)
[2023-10-23] MEDS: Pantoprazole Sodium 40 MG Tablet PO (11:51)
[2023-10-23] MEDS: Folic Acid 1 MG Tablet PO (11:51)
[2023-10-23] MEDS: Ceftriaxone 2 GM in 0.9% Normal Saline (50mL MB+) 50 ML IV ×2 (11:51→20:41)
[2023-10-23] MEDS: Aspirin E.C. 81 MG Tablet PO (11:52)
--- NOTE | 2023-10-23 13:48 | PN.HOSP_ITS ---
Reason for Visit Reason for Visit: Diagnoses Cerebral infarction, unspecified (10/21/23) Objective Data Objective Data Vital Signs: Vital Signs Temp Pulse Resp BP Pulse Ox O2 Del Method 97.5 F L 96 16 129/86 H 98 Room Air 10/23/23 08:45 10/23/23 08:45 10/23/23 08:45 10/23/23 08:45 10/23/23 08:45 10/23/23 09:44 Oxygen Delivery Method Room Air Weight: 187 lb 6.287 oz Body Mass Index (BMI) 26.9 Intake & Output: Intake and Output for Last 24 Hours 10/21/23 10/22/23 10/23/23 22:59 23:59 23:59 Intake Total 2173.33 / 2173.33 Output Total Balance 2173.33 / 2173.33 Medical Nutrition Assessment Dietitian: Malnutrition Criteria Met Start: 10/22/23 17:13 Freq: Status: Active Protocol: Document 10/22/23 17:14 RMA (Rec: 10/22/23 17:14 RMA [id number]) Nutrition Malnutrition Evidence of Malnutrition Exists Yes Malnutrition (severe): Chronic Evidenced By Suboptimal Energy Intake ( Severe),Weight Loss (Severe) Clinical Problem Chronic Disease or Condition Related Malnutrition Etiology severe protein-calorie malnutrition in the context of chronic disease related to inadequate oral/ennergy intake Signs/Symptoms as evidenced by ~6-7% unintentional weight loss x past 1 month and PO meeting less than 50% estimated nutrition needs x 1-2 months Status Active Problem Recommendation Dietitian Recommendations/Changes Will adjust diet to 2000 calorie/consistent carbohydrate; cardiac. Will add 120ml glucerna shake 4 times per day w/ medpass. Will add 240mL glucerna shake w/ breakfast tray. Adjust ONS as need to optimize PO and prevent further weight loss. Lab / Micro Data 10/23/23 05:55 10/23/23 05:55 Labs: Laboratory Results - last 24 hr 10/22/23 17:34: POC Glucose 139 H 10/22/23 20:46: POC Glucose 116 H 10/23/23 05:55: WBC 7.7, RBC 3.92 L, Hgb 11.2 L, Hct 33.3 L, MCV 84.9, MCH 28.6, MCHC 33.6, RDW Std Deviation 41.1, RDW Coeff of Frankie 13.3, Plt Count 256, MPV 8.1, Immature Gran % (Auto) 0.400, Neut % (Auto) 76.1 H, Lymph % (Auto) 14.6 L, Grady % (Auto) 8.2, Eos % (Auto) 0.4, Baso % (Auto) 0.3, Absolute Neuts (auto) 5.9, Absolute Lymphs (auto) 1.13, Nucleated RBC % 0, Sodium 132 L, Potassium 3.8, Chloride 102, Carbon Dioxide 23.0, Anion Gap 7, BUN 20 H, Creatinine 0.67 L , Estim Creat Clear Calc 88.72, Est GFR (MDRD) Af Amer 150, Est GFR (MDRD) Non- Af 124, BUN/Creatinine Ratio 29.8 H, Glucose 107 H, Calcium 8.0 L, Total Bilirub in 1.30 H, AST 17, ALT 20, Alkaline Phosphatase 69, Total Protein 5.8 L, Albumin 2.8 L, Globulin 3.0, Albumin/Globulin Ratio 0.9, Vitamin B12 177 L, TSH 2.40 10/23/23 06:38: POC Glucose 104 Micro: Microbiology 10/22/23 01:13 Mucosa - Nasopharyngeal Coronavirus COVID-19 PCR - Final 10/22/23 01:13 Mucosa - Nasopharyngeal Respiratory Panel (PCR) - Final Radiography Diagnostic Testing: Radiology Impression Carotid Duplex 10/21/23 20:32 Interpretation Summary Mild (<50%) stenosis right extracranial internal carotid. Normal left extracranial internal carotid. Patent and antegrade vertebrals bilaterally. Ordering Physician: Sara Reaves Referring Physician: Marlen Bear M.D. Performed By: Rena Rodríguez RVT Chest X-Ray 10/23/23 05:40 IMPRESSION: No evidence of acute cardiopulmonary disease. Electronically Signed: Julio Soto DO at 6:54 EDT , Brain MRI 10/23/23 09:23 IMPRESSION: 1. Involutional and chronic ischemic changes of the brain, as described above. 2. No intravenous contrast was administered, therefore the meninges cannot be evaluated on this study. No obvious pachymeningeal hyperintensity or thickening is seen. Electronically Signed: Arnav Nobles MD at 11:55 EDT , Lumbar Spine MRI 10/23/23 09:23 IMPRESSION: 1. Newly developed moderate marrow edema throughout the L4 and L5 vertebral bodies which was not present on May 27, 2023 study. Also interval development of mild liquefaction within the disc at L4-L5 and mild cortical erosion of the endplates, all findings consistent with vertebral osteomyelitis and discitis. The disc spaces also narrowed compared to the prior MRI as well as the prior CT of the lumbar spine dated August 14, 2023 and is moderately narrowed compared to mild to moderate narrowing on those studies. There is no demonstrated paraspinal abscess or edema or swelling. 2. No visualized epidural fluid collections 3. Multilevel degenerative changes, as described above. Electronically Signed: Arnav Nobles MD at 11:52 EDT , ADDENDUM: 10/23/23 1318 IMPRESSION: 1. Newly developed moderate marrow edema throughout the L4 and L5 vertebral bodies which was not present on May 27, 2023 study. Also interval development of mild liquefaction within the disc at L4-L5 and mild cortical erosion of the endplates, all findings consistent with vertebral osteomyelitis and discitis. The disc spaces also narrowed compared to the prior MRI as well as the prior CT of the lumbar spine dated August 14, 2023 and is moderately narrowed compared to mild to moderate narrowing on those studies. There is no demonstrated paraspinal abscess or edema or swelling. 2. No visualized epidural fluid collections 3. Multilevel degenerative changes, as described above. N.B. : Araceli Love RN, confirmed on 10/23/2023 13:11:10 (ET) that the healthcare facility has received the radiology report. Electronically Signed: Arnav Nobles MD at 11:52 EDT Reading Location ID and State: [facility] / [place] , Service support , Physical Exam Narrative Seen and examined. Patient had high-grade fever Tmax 102.6 Fahrenheit 100.1 Fahrenheit with associated sinus tachycardia. Serum sodium 131. Potassium 3.2. Patient was admitted with altered mental status, confusion and hard time expressing himself. General: Alert, Oriented x3, Cooperative and severe back pain and stiffness HEENT: Atraumatic, PERRLA, EOMI, Normocephalic Oral: No Gingival or Mucosal Lesions/ Ulcerations Neck: Supple, No JVD, Negative Carotid Bruits Chest wall/Lungs: Air entry diminished in bilateral lung bases. No crepitation/rhonchi Cardiovascular: Regular rate, Regular Rhythm, Normal S1, Normal S2, No M/G/R Abdomen: Bowel Sounds Present, Soft, Non Tender, Non-Distended : No dysuria. No renal angle tenderness. No suprapubic tenderness. Extremities: No edema, Capillary Refill Less than 3 Seconds Skin: No rashes, No breakdown Musculoskeletal: No Tenderness to Palpation of Joints or Extremities. Spine: Postop surgical scar well-healed. Tenderness present all around lumbar and paraspinal area. Muscle stiffness. ROM severely limited and painful even with slightest motion Neurological: Cranial nerves II-XII grossly intact, DTR 2+/4. No neck rigidity. Brudzinski sign positive of both legs on extension of calf muscle. Psych/Mental Status: Flat affect. Assessment & Plan Assessment/Plan (1) Acute CVA (cerebrovascular accident): PLAN: Plan The patient is a 68 y/o M is being admitted for intermittent fever after surgery along with confusion lethargy/altered mental status, severe back pain and expressive aphasia. Expressive aphasiadue to lethargy. #1. Acute encephalopathy/altered mental status/expressive aphasia probably related to pain medication: Patient was found very lethargic and was on oxycodone 7.5 mg 3 times daily as needed. Patient currently is awake and alert and in severe back pain with stiffness therefore oxycodone resumed. Patient was evaluated by neurologist and does not think patient to clinical he had a stroke but probably postop infection/complication as mentioned below. CT head and CTA head and neck does not show acute abnormality or LVO. Discontinue Plavix. 10/22: Patient did not had any fever. Tmax 99.3 Fahrenheit. Acute encephalopathy resolved. 2. Acute on chronic back pain with radiculopathy due to recurrent disc herniation status post repeat laminectomy L4-5 on the left with discectomy and decompression of L5 nerve root with with vertebral osteomyelitis and discitis of L4-L5: Patient had back surgery as mentioned above on 07/18/2023. As per he is having on and off fever and chills after surgery. Initially he had enuresis/bedwetting and then urinary incontinence since then. Patient has very restricted mobility due to back stiffness and pain and on oxycodone 7.5 mg 3 times daily as needed. Patient put back on oxycodone 7.5 mg 3 times daily with holding parameters. MRI lumbar spine with and without contrast and MRI brain with and without contrast on. But lumbar spine takes the priority. Will hold for spinal tap as patient might have lumbar abscess or infection. Discussed with the [facility] neurologist. Patient on IV vancomycin, ampicillin and ceftriaxone, meningitis regimen. Orthospine and ID are consulted. I talked to Dr. Godoy, spine surgeon. PT and OT ordered. TSH normal. 10/22: Patient still has severe back pain even on oxycodone 7.5 mg 3 times daily and Toradol 15 mg every 6 hourly as needed. Patient not move bowel for last 2 to 3 days therefore on Senna-S 2 tablet twice daily, MiraLAX and Dulcolax oral ordered. Oxycodone increased to 10 mg every 6 hourly as needed. MRI lumbar spine and brain with and without contrast were ordered but patient could only have noncontrast study because of severe pain. Discussed with the spine surgeon and does not think any paraspinal abscess but will wait for official report. Lumbar spine reported newly developed moderate marrow edema throughout L4-L5 vertebral bodies with mild liquefaction within disc of L4-L5 and mild cortical erosions of the endplates finding consistent with vertebral osteomyelitis and discitis. Disc spaces also narrowed. No demonstrated paraspinal abscess or any more swelling. No visualized epidural fluid collection. Patient on IV antibiotics. ID is consulted. MRI brain shows involutional chronic changes but minges could not be evaluated because of no intravenous contrast was administered for reasons mentioned above. 3. Hypotonic isovolemic hyponatremia: Even though patient on IV fluid normal saline, serum sodium did not increase it remains 131. Will discontinue IV fluid. Patient might have SIADH after neurosurgery 10/22: Serum sodium is similar for last 3 days. 4. Hypokalemia: Admission K+ 3.2, magnesium level normal. Potassium replaced 10/20: Hypokalemia corrected. 5. Chronic asthma: Per current list not on inhalers,PRN albuterol, HOB, IS par ameters. 6. CAD: Status post CABG x 3, continue aspirin, changed to high-dose statin. #7. Diabetes mellitus type II with chronic neuropathy: Hold oral home regimen, hemoglobin A1c 6.4, glucose controlled. Accu-Chek ACH cover with Humalog sliding scale. Continue patient home chronic gabapentin regimen. #8. Hyperlipidemia: Changing to high-dose statin regimen. LDL 123. HDL normal. #9. GERD: Will continue patient home PPI and sucralfate regimen. #10. BPH: We will continue patient on Flomax regimen. #11. Tobacco Abuse: Encouraged to tobacco cessation, inpatient consultation per RT, NR if desired. Patient usually uses 1 can every 3 to 4 days. #12. Restless leg syndrome: On a regimen, if necessary may add Requip #13. DVT prophylaxis: Lovenox. #14. CODE status: Patient HCPOA is his was present and living will is currently in place. Discussed CODE status at length including difference between FULL code, DNR-CCA and DNR-CC status. Following discussions about the d ifferences in these status, requested Full Code status. Total time of the visit including total time spent in counseling or coordination of care, (more than 50% of the total time, spent in obtaining medical information from nurses and other ancillary care providers,explaining to the patient about labs, imaging, diagnosis and management of active complex medical conditions), complete history taking from patient's , discussion with [facility] neurologist and orthospine surgeon Dr. Walt Whitehead, review of labs and imaging is 40 minutes. Microbiology Past 72 Hours 10/22/23 01:13 Mucosa - Nasopharyngeal Coronavirus COVID-19 PCR - Final 10/22/23 01:13 Mucosa - Nasopharyngeal Respiratory Panel (PCR) - Final Laboratory Results 10/22/23 17:34: POC Glucose 139 H 10/22/23 20:46: POC Glucose 116 H 10/23/23 05:55: WBC 7.7, RBC 3.92 L, Hgb 11.2 L, Hct 33.3 L, MCV 84.9, MCH 28.6, MCHC 33.6, RDW Std Deviation 41.1, RDW Coeff of Frankie 13.3, Plt Count 256, MPV 8.1, Immature Gran % (Auto) 0.400, Neut % (Auto) 76.1 H, Lymph % (Auto) 14.6 L, Grady % (Auto) 8.2, Eos % (Auto) 0.4, Baso % (Auto) 0.3, Absolute Neuts (auto) 5.9, Absolute Lymphs (auto) 1.13, Nucleated RBC % 0, Sodium 132 L, Potassium 3.8, Chloride 102, Carbon Dioxide 23.0, Anion Gap 7, BUN 20 H, Creatinine 0.67 L , Estim Creat Clear Calc 88.72, Est GFR (MDRD) Af Amer 150, Est GFR (MDRD) Non- Af 124, BUN/Creatinine Ratio 29.8 H, Glucose 107 H, Calcium 8.0 L, Total Bilirubin 1.30 H, AST 17, ALT 20, Alkaline Phosphatase 69, Total Protein 5.8 L, Albumin 2.8 L, Globulin 3.0, Albumin/Globulin Ratio 0.9, Vitamin B12 177 L, TSH 2.40 10/23/23 06:38: POC Glucose 104 Clinical Impression(s) from Imaging Studies Brain CT 10/21/23 17:19 IMPRESSION: Chronic age related changes and atrophy. No acute abnormality or significant change. Electronically Signed: Toribio Giraldo MD at 17:34 EST , ADDENDUM: 10/21/23 1746 IMPRESSION: Chronic age related changes and atrophy. No acute abnormality or significant change. N.B. : The above Results were Read Back by Toribio Giraldo MD to Kayli Granados DO, and understanding confirmed on 10/21/2023 17:39:16 (ET). Electronically Signed: Toribio Giraldo MD at 17:34 EST , Head/Neck CTA 10/21/23 17:19 IMPRESSION: No acute abnormality. No large vessel occlusions. 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 Electronically Signed: Toribio Giraldo MD at 17:49 EST Reading Location ID and State: [facility] / [place] , Service support , ADDENDUM: 10/21/23 1758 IMPRESSION: No acute abnormality. No large vessel occlusions. 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 N.B. : The above Results were Read Back by Toribio Giraldo MD to Kayli Granados DO, and understanding confirmed on 10/21/2023 17:51:20 (ET). Electronically Signed: Toribio Giraldo MD at 17:49 EST Reading Location ID and State: [facility] / [place] , Service support , Chest X-Ray 10/21/23 18:05 IMPRESSION: No definite acute or significant abnormality seen. Electronically Signed: Toribio Giraldo MD at 19:00 EST , Charges/Coding Visit Charges Inpatient E&M: 60867 Subs Hosp L3
[2023-10-23 14:00] LABS: Bedside Glucose 108 mg/dL (74-106)
--- NOTE | 2023-10-23 14:03 | CON.PCM_ITS ---
Consult Date of Consult: 10/23/23
--- NOTE | 2023-10-23 14:03 | PCM.CONS.B ---
Consult Date of Consult: 10/23/23
--- NOTE | 2023-10-23 14:26 | PCM.CONS.B ---
Consult Date of Consult: 10/23/23 Reason for Consult Mr. Bates is seen in consultation at the request of Dr. Figueroa. Mr. Bates has had recurrent fevers of late. He is also had some night sweats. I performed a lumbar laminectomy discectomy of the L4-5 level on July 25, 2023. For the first few days after surgery he did well with complete relief of his leg pain. He gradually began having more pain in his leg over time. I saw him on 06 September and because of his weight loss and loss in appetite I began getting suspicious that there was more going on than just the degeneration in his back. On that day ordered an MRI scan of the lumbar spine with and without contrast. It was turned down by [employer] and it was specifically turned down by Dr. Vipul Estrella. 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 Request of the MRI was turned down for the usual reasons that these companies use such as not enough information, failure of 6 weeks of conservative management, and the records do not show results of prior imaging , etc. Apparently Dr. Estrella failed to account for the fact that Mr. Bates had had 2 surgeries before this including my surgery of July 20, 2023, and those records are in possession of the insurance company. Anytime the disc is violated and there is an increase of pain over time the possibility of discitis is there. This physician and his company, [employer], failed to consider that possibility and turned the MRI scan down. The MRI scan finally was done this morning and he required hospitalization to get it done. On examination it is noted that he has some mild wasting of the left quad that he has had for some time. He has decreased patellar reflexes bilaterally but he did have +1 Achilles reflexes bilaterally. He does not have any nuchal signs. He has no long tract signs. Clonus is absent Babinski's are both downgoing. I reviewed the MRI scan that was done this morning. He has some liquefaction of the L4-5 disc suggesting the possibility of discitis. The surgery that I performed did include exposure of the disc itself at that level. This suggest that the disc base was probably contaminated on July 20, 2023. Had the MRI scan been approved that I ordered on September 06 we probably would have discovered these findings 5 weeks earlier. This is a perfect illustration of why [employer] companies should be outlawed. Their decisions are often to the detriment of the patient. The insurance companies use them so that they themselves are not blamed for mistakes and injury to the patients. I discussed the case by telephone with Dr. Figueroa. He has already asked Dr. Wilkinson in infectious disease specialist to see the patient. IV antibiotics have already been started. I suspect Dr. Wilkinson will treat the infection empirically. I suspect that it is a low virulent organisms such as perhaps Staph epidermidis as it has taken this long to become apparent. Thank you for this consultation. I will follow the patient as long as he is in the hospital.
--- NOTE | 2023-10-23 15:04 | PCM.CONS.GEN ---
Assessment & Plan Assessment/Plan (1) Altered mental status: (2) S/P laminectomy: (3) Discitis of lumbar region: PLAN: Had lumbar laminectomy and discectomy L4-5 on 07/18/[address] Godoy here. Since then, progressive pain, new fever and confusion. Bcx pending. On empiric vanc/amp/ceftriaxone. Low suspicion for meningitis at this point. MRI shows suspected discitis/osteo. At risk for nosocomial organisms. No epidural abscess seen. Recommend aspiration of disc/bone with orosco culture sent to try to find an organism. Cont empiric vanc/ceftriaxone, will stop ampicillin; if he worsens, would change ceftriaxone to cefepime to cover for pseudomonas. Will follow, thank you, d/w Dr. Figueroa HPI Consult Data Date of Consult: 10/23/23 HPI Narrative Reason for Consultation: discitis/osteo HPI Narrative: JARET FIGUEROA, is a 68 M who had recurrent disc herniation, taken to OR 07/18/[address] Godoy at [facility] for repeat laminectomy L4-5 on the left with discectomy and decompression of L5 nerve root. Since the surgery, has had progressive lower back pain, chills, confusion, bladder incontinence. Had nerve root injections done without improvement. Given course of abx for sinusitis by PCP early in Aug, no abx since then. Had 4 ED visits over this time due to ongoing symptoms. Admitted here 10/20 from ED with new aphasia. Denies any headache or neck pain. Started on vanc/amp/ceftriaxone. MRI done, seen by neuro and Dr. Godoy. Additional history obtained from at bedside. Full ROS performed and neg except as noted above. [facility] Medical History Agent orange exposure Alcohol use Ambulates with cane Arthritis Arthropathy of cervical facet joint Asthma Atherosclerotic heart disease of [place] coronary artery without angina pectoris Back pain Bilirubinuria Cancer Cardiology follow-up encounter Cervical spondylosis Chondromalacia of both patellae Chondromalacia, left knee Chondromalacia, right knee Contact with or exposure to other viral diseases COVID-19 virus detected (11/19/20) Degeneration of cervical disc without myelopathy Degeneration of intervertebral disc of lumbosacral region Diabetes Fusion of spine, cervical region High cholesterol (~08/21/23) History of echocardiogram History of IBS History of pain when walking History of steroid therapy History of stress test Hyperlipemia Injury of head and neck Left knee DJD Nonrheumatic aortic (valve) stenosis with insufficiency Obesity Opioid dependence Prostate disease Radiculopathy of lumbosacral region Restless legs Right knee DJD Shortness of breath on exertion Smokeless tobacco use Spinal stenosis of lumbosacral region Spondylosis of lumbosacral region without myelopathy or radiculopathy Syncope Tear of medial meniscus of right knee Type 2 diabetes mellitus Wears hearing aid Home Medications aspirin 81 mg tablet,delayed release 81 mg PO DAILY HEART HEALTH 12/23/15 [History Last Taken 07/11/23] multivitamin 1 tab PO DAILY supplement 07/09/19 [History Last Taken 07/17/23 06:00] baclofen 10 mg tablet 10 mg PO TID PRN PRN Muscle Spasm 05/14/20 [History Last Taken 07/17/23 18:00] gabapentin 100 mg capsule 200 mg PO TID neuropathy 05/14/20 [History Last Taken 07/17/23 18:00] naproxen sodium 220 mg capsule (Aleve) 220 mg PO BID PRN Pain 02/04/22 [History Last Taken 07/17/23 18:00] albuterol sulfate 90 mcg/actuation aerosol inhaler 1 - 2 puff inhalation Q4H PRN PRN Wheezing #8.5 grams 04/21/22 [Rx Last Taken Unknown] handicap placard #1 ea 04/21/22 [Rx Last Taken Unknown] blood sugar diagnostic (FreeStyle Lite Strips) #100 ea 09/15/22 [Rx Last Taken Unknown] blood-glucose meter (FreeStyle Lite Meter kit) #1 ea 09/15/22 [Rx Last Taken Unknown] fluticasone propionate 50 mcg/actuation nasal spray,suspension 1 - 2 spray intranasal BID PRN allergies, congestion #16 grams 04/27/23 [Rx Last Taken 07/18/23 03:00] metformin 500 mg tablet 500 mg PO BID DIABETES #180 tabs 04/27/23 [Rx Last Taken 07/17/23 18:00] linaclotide 72 mcg capsule 72 mcg PO DAILY IBS #90 caps 06/27/23 [Rx Last Taken 07/17/23 06:00] acetaminophen 500 mg capsule 1,000 mg PO Q6H PRN pain 07/18/23 [History Last Taken 07/17/23 18:00] atorvastatin 40 mg tablet 40 mg PO QHS CHOLESTEROL #90 tabs 08/21/23 [Rx Last Taken Unknown] medical marijuana card PO unknown 08/21/23 [History Last Taken Unknown] omeprazole 40 mg capsule,delayed release 40 mg PO DAILY PRN Reflux #30 caps 08/21/23 [Rx Last Taken Unknown] trazodone 50 mg tablet 50 - 100 mg (1 - 2 x 50 mg) PO QHS sleep #90 tabs 08/21/23 [Rx Last Taken Unknown] sucralfate 1 gram tablet (Carafate) 1 g PO QACHS #30 tabs 09/27/23 [Rx Last Taken Unknown] metoclopramide HCl 10 mg tablet (Reglan) 10 mg PO Q8H PRN PRN nausea and vomiting #14 tabs 10/01/23 [Rx Last Taken Unknown] ondansetron 4 mg disintegrating tablet 4 mg PO Q6H PRN nausea and vomiting #20 tabs 10/03/23 [Rx Last Taken Unknown] oxycodone 5 mg tablet 7.5 mg PO TID PRN PRN pain 10/21/23 [History Last Taken Unknown] tamsulosin 0.4 mg capsule 0.4 mg PO QHS PRN urinary retention 10/21/23 [History Last Taken Unknown] Allergy/AdvReac Type Severity Reaction Status Date / Time adhesive tape Allergy Rash Verified 10/21/23 17:52 sertraline [From Zoloft] AdvReac Unknown Verified 10/21/23 17:52 Family History (Updated 10/21/23 @ 20:[address] Sara Reaves MD) Brother Heart disease Myocardial infarction 60's CAD (coronary artery disease) Father Myocardial infarction 65 CAD (coronary artery disease) Mother HLD (hyperlipidemia) when son was 16 following MVA, healthy aside HLD. Surgical History H/O cervical spine surgery (08/2020) H/O coronary artery bypass surgery (09/14/11) History of back surgery History of carpal tunnel release History of herniorrhaphy History of lateral meniscus repair of right knee (~2021) History of left heart catheterization (01/27/12) Hx laparoscopic cholecystectomy (~11/2022) Hx of bilateral cataract extraction Status post discectomy for herniated nucleus pulposus Social History (Updated 10/21/23 @ 20:[address] Sara Reaves MD) household members: spouse Smoking Status: Never smoker Smokeless tobacco user: chewing tobacco alcohol intake: current alcohol intake frequency: a few times a month substance use type: does not use caffeine: Yes Type: coffee Number of servings: 2 Physical Exam Const Constitutional Narrative: in distress, uncomfortable General Appearance: cooperative HEENT normocephalic and head/scalp atraumatic Eyes PERRL and EOMs intact bilaterally Neck supple and No nodes Resp normal air movement and clear to auscultation bilaterally Cardio regular rate and regular rhythm GI soft to palpation, non-tender and non-distended Extremity General Extremity: Negative for edema Skin no rashes or lesions noted Neuro CN's II-XII intact bilaterally Medical Records Data Medical Nutrition Assessment Dietitian: Malnutrition Criteria Met Start: 10/22/23 17:13 Freq: Status: Active Protocol: Document 10/22/23 17:14 RMA (Rec: 10/22/23 17:14 RMA [id number]) Nutrition Malnutrition Evidence of Malnutrition Exists Yes Malnutrition (severe): Chronic Evidenced By Suboptimal Energy Intake ( Severe),Weight Loss (Severe) Clinical Problem Chronic Disease or Condition Related Malnutrition Etiology severe protein-calorie malnutrition in the context of chronic disease related to inadequate oral/ennergy intake Signs/Symptoms as evidenced by ~6-7% unintentional weight loss x past 1 month and PO meeting less than 50% estimated nutrition needs x 1-2 months Status Active Problem Recommendation Dietitian Recommendations/Changes Will adjust diet to 2000 calorie/consistent carbohydrate; cardiac. Will add 120ml glucerna shake 4 times per day w/ medpass. Will add 240mL glucerna shake w/ breakfast tray. Adjust ONS as need to optimize PO and prevent further weight loss. Lab / Micro Data Attestation: I reviewed the patient's lab results. 10/23/23 05:55 10/23/23 05:55 Labs: Laboratory Results - last 24 hr 10/22/23 17:34: POC Glucose 139 H 10/22/23 20:46: POC Glucose 116 H 10/23/23 05:55: WBC 7.7, RBC 3.92 L, Hgb 11.2 L, Hct 33.3 L, MCV 84.9, MCH 28.6, MCHC 33.6, RDW Std Deviation 41.1, RDW Coeff of Frankie 13.3, Plt Count 256, MPV 8.1, Immature Gran % (Auto) 0.400, Neut % (Auto) 76.1 H, Lymph % (Auto) 14.6 L, [place] % (Auto) 8.2, Eos % (Auto) 0.4, Baso % (Auto) 0.3, Absolute Neuts (auto) 5.9, Absolute Lymphs (auto) 1.13, Nucleated RBC % 0, Sodium 132 L, Potassium 3.8, Chloride 102, Carbon Dioxide 23.0, Anion Gap 7, BUN 20 H, Creatinine 0.67 L, Estim Creat Clear Calc 88.72, Est GFR (MDRD) Af Amer 150, Est GFR (MDRD) Non-Af 124, BUN/Creatinine Ratio 29.8 H, Glucose 107 H, Calcium 8.0 L, Total Bilirubin 1.30 H, AST 17, ALT 20, Alkaline Phosphatase 69, Total Protein 5.8 L, Albumin 2.8 L, Globulin 3.0, Albumin/Globulin Ratio 0.9, Vitamin B12 177 L, TSH 2.40 10/23/23 06:38: POC Glucose 104 10/23/23 12:03: POC Glucose 108 H Imaging Radiology Impression Carotid Duplex 10/21/23 20:32 Interpretation Summary Mild (<50%) stenosis right extracranial internal carotid. Normal left extracranial internal carotid. Patent and antegrade vertebrals bilaterally. Ordering Physician: Sara Reaves Referring Physician: Marlen Bear M.D. Performed By: Rena Rodríguez, Sudarshan Chest X-Ray 10/23/23 05:40 IMPRESSION: No evidence of acute cardiopulmonary disease. Electronically Signed: Julio Soto DO at 6:54 EDT , Brain MRI 10/23/23 09:23 IMPRESSION: 1. Involutional and chronic ischemic changes of the brain, as described above. 2. No intravenous contrast was administered, therefore the meninges cannot be evaluated on this study. No obvious pachymeningeal hyperintensity or thickening is seen. Electronically Signed: Arnav Nobles MD at 11:55 EDT , Lumbar Spine MRI 10/23/23 09:23 IMPRESSION: 1. Newly developed moderate marrow edema throughout the L4 and L5 vertebral bodies which was not present on May 27, 2023 study. Also interval development of mild liquefaction within the disc at L4-L5 and mild cortical erosion of the endplates, all findings consistent with vertebral osteomyelitis and discitis. The disc spaces also narrowed compared to the prior MRI as well as the prior CT of the lumbar spine dated August 14, 2023 and is moderately narrowed compared to mild to moderate narrowing on those studies. There is no demonstrated paraspinal abscess or edema or swelling. 2. No visualized epidural fluid collections 3. Multilevel degenerative changes, as described above. Electronically Signed: Arnav Nobles MD at 11:52 EDT , ADDENDUM: 10/23/23 1318 IMPRESSION: 1. Newly developed moderate marrow edema throughout the L4 and L5 vertebral bodies which was not present on May 27, 2023 study. Also interval development of mild liquefaction within the disc at L4-L5 and mild cortical erosion of the endplates, all findings consistent with vertebral osteomyelitis and discitis. The disc spaces also narrowed compared to the prior MRI as well as the prior CT of the lumbar spine dated August 14, 2023 and is moderately narrowed compared to mild to moderate narrowing on those studies. There is no demonstrated paraspinal abscess or edema or swelling. 2. No visualized epidural fluid collections 3. Multilevel degenerative changes, as described above. N.B. : Araceli Love RN, confirmed on 10/23/2023 13:11:10 (ET) that the healthcare facility has received the radiology report. Electronically Signed: Arnav Nobles MD at 11:52 EDT Reading Location ID and State: [facility] / [place] , Service support ,
[2023-10-23 19:13] LABS: Bedside Glucose 97 mg/dL (74-106)
[2023-10-23 19:44] LABS: Vancomycin, Trough Level 14.3 ug/mL (5.0-15.0)
--- NOTE | 2023-10-23 20:19 | PCM.RX.CS ---
Consult Antibiotic Management Pharmacy has been consulted to manage selected antibiotic: Vancomycin Type of Intervention Type of Consult: New start Suspected Infection Suspected Infection: Osteomyelitis Prior Doses of Antibiotics Prior Doses of Antibiotics Received/Current Regimen: Received initial dose of 2000mg iv x 1 10.22.23 @0756. Continued with 1500mg iv q12h. Labs Labs: Sodium 132 mmol/L (136-145) L 10/23/23 05:55 Potassium 3.8 mmol/L (3.5-5.1) 10/23/23 05:55 Chloride 102 mmol/L (98-107) 10/23/23 05:55 Carbon Dioxide 23.0 mmol/L (21.0-32.0) 10/23/23 05:55 Anion Gap 7 (5-15) 10/23/23 05:55 BUN 20 mg/dL (7-18) H 10/23/23 05:55 Creatinine 0.67 mg/dL (0.70-1.30) L 10/23/23 05:55 Est GFR (MDRD) Af Amer 150 mL/min (>60) 10/23/23 05:55 Est GFR (MDRD) Non-Af 124 mL/min (>60) 10/23/23 05:55 BUN/Creatinine Ratio 29.8 RATIO (10-20) H 10/23/23 05:55 Glucose 107 mg/dL (74-106) H 10/23/23 05:55 Vancomycin Trough 14.3 ug/mL (5.0-15.0) 10/23/23 19:04 Microbiology Microbiology: Microbiology 10/22/23 01:13 Mucosa - Nasopharyngeal Coronavirus COVID-19 PCR - Final 10/22/23 01:13 Mucosa - Nasopharyngeal Respiratory Panel (PCR) - Final Dosing Weight Weight used for dosin kg Estimated Creatinine Clearance Estimated Creatinine Clearance: >100ml/min Goal Trough Goal Trough: 15-20 mcg/mL Pharmacy Plan for Drug Dosing Pharmacy Plan for Drug Dosing: Trough today at ~ 10.5hrs post dose was 14.3 and slightly below desired level of 15-20mcg/ml. Recommend an increase in dose to 1750mg iv q12h with new trough level before 4th dose given. Pharmacy Service will continue to monitor and adjust dosing as required. Follow-Up Labs Follow-Up Labs: Trough: Vancomycin (10.25.23 @0730)
[2023-10-23] MEDS: Vancomycin Trough/Random Due 1 LAB MC (20:33)
[2023-10-23] MEDS: Vancomycin HCl 1,750 MG in 0.9% Normal Saline (500mL Bag) 500 ML 250 MG IV (20:36)
[2023-10-23] MEDS: 0.9% Saline Lock 10 ML Syringe IV (20:38)
[2023-10-23] MEDS: MELATONIN 3 MG TABLET PO (20:47)
[2023-10-23] MEDS: Tamsulosin HCl 0.4 MG Capsule 0.400000000000000022 MG PO (20:47)
[2023-10-23] MEDS: Atorvastatin Calcium 80 MG Tablet PO (20:48)
[2023-10-23 21:20] LABS: Bedside Glucose 80 mg/dL (74-106)
[2023-10-24] MEDS: oxyCODONE 5 MG Tablet 10 MG PO ×3 (00:23→11:38)
[2023-10-24 03:07] VITALS: BMI 26.9
[2023-10-24 04:23] VITALS: BP 129/75; PULSE 66; RESP 16; TEMP 35.7; O2SAT 99
[2023-10-24] MEDS: Gabapentin 100 MG Capsule 200 MG PO (05:31)
[2023-10-24] MEDS: Acetaminophen 500 MG Tablet 1000 MG PO (05:33)
[2023-10-24 06:48] LABS: Bedside Glucose 91 mg/dL (74-106)
[2023-10-24 07:46] LABS: Absolute Lymphocyte Count 0.97 X10^3/uL (0.83-4.51); Absolute Neutrophil Count 5.1 X10^3/uL (2.0-7.7); Basophil# 0.02 X10^3/uL; Basophil% 0.3 % (0-1); Eosinophil# 0.06 X10^3/uL; Eosinophils% 0.9 % (0-5); Hemoglobin 11.3 g/dL (13.0-16.5); Lymphocyte # 0.97 X10^3/ul (0.83-4.51); Lymphocyte % 14.4 % (19-41); Mean Corp Hgb Conc 34.2 g/dL (32-36); Mean Corpuscular Hgb 28.7 pg (27.0-32.0); Mean Corpuscular Volume 83.8 fL (80-94); Mean Platelet Vol. 7.8 fl (6.2-12.0); Monocyte% 8.9 % (0-10); NRBC Flagged by Analyzer 0 % (0-5); Neutrophil # 5.07 X10^3/uL (2.7-7.7); Neutrophil % 75.2 % (47-70); Platelet Count 246 K/mm3 (150-450); RBC Distribution Width CV 13.2 % (11.6-14.6); RBC Distribution Width SD 40.3 fl (35.1-43.9); Red Blood Count 3.94 M/mm3 (4.6-6.2); White Blood Count 6.7 K/mm3 (4.4-11.0)
[2023-10-24 08:14] LABS: ALB/GLOB Ratio 0.9 RATIO (0.9-2.4); AST(SGOT) 17 U/L (15-37); Alanine Aminotransfer ALT/SGPT 18 U/L (16-61); Albumin, Serum 2.8 g/dL (3.2-5.0); Alkaline Phosphatase 72 U/L (45-117); Anion Gap 6 (5-15); BUN 17 mg/dL (7-18); BUN/Creat Ratio 32.3 RATIO (10-20); Calcium,Total 8.3 mg/dL (8.5-10.1); Chloride 101 mmol/L (98-107); Creatinine, Serum 0.53 mg/dL (0.70-1.30); EST Glomerular Filtration Rate 165 mL/min (>60); Est Glom Filt Rate - Afr Amer 199 mL/min (>60); Estimated Creatinine Clearance 88.72 ml/min; Globulin 3.1 g/dL (2.2-4.2); Glucose 97 mg/dL (74-106); Potassium 3.3 mmol/L (3.5-5.1); Protein, Total 5.9 g/dL (6.4-8.2); Sodium Level 131 mmol/L (136-145)
[2023-10-24 08:27] VITALS: BP 114/86; PULSE 68; RESP 18; TEMP 36.6; O2SAT 95
[2023-10-24] MEDS: Aspirin E.C. 81 MG Tablet PO (08:28)
[2023-10-24] MEDS: Folic Acid 1 MG Tablet PO (08:28)
[2023-10-24] MEDS: Enoxaparin 40 MG/0.4 ML Syringe SC (08:29)
[2023-10-24] MEDS: Thiamine Hydrochloride 100 MG Tablet PO (08:29)
[2023-10-24] MEDS: Pantoprazole Sodium 40 MG Tablet PO (08:29)
[2023-10-24] MEDS: Senna/Docusate Sodium 1 Tablet 2 TABLET PO (08:32)
[2023-10-24] MEDS: Ceftriaxone 2 GM in 0.9% Normal Saline (50mL MB+) 50 ML IV (08:32)
[2023-10-24] MEDS: 0.9% Saline Lock 10 ML Syringe IV ×3 (08:32→22:15)
[2023-10-24] MEDS: Polyethylene Glycol 3350 17 GM PACKET PO (08:32)
[2023-10-24] MEDS: Vancomycin HCl 1,750 MG in 0.9% Normal Saline (500mL Bag) 500 ML 250 MG IV ×2 (08:33→22:15)
--- NOTE | 2023-10-24 08:45 | CT_ITS ---
STUDY: CT LUMBAR SPINE WITHOUT CONTRAST REASON FOR EXAM: Male, 68 years old. ATTN L4-L5 disc, discitis -- ATTN L4-L5 disc RADIATION DOSAGE (If Supplied By Facility): CTDIvol = ( 15.73 ) mGy, DLP = ( 45.67 ) mGycm TECHNIQUE: The patient was scanned in a multi detector CT scanner. High resolution transaxial imaging was performed. Images were obtained from L1 to S1 vertebral level. Sagittal and coronal images were reconstructed. Individualized dose optimization techniques were used for this CT. COMPARISON: Comparison is made with prior MRI of the lumbar spine dated October 23, 2023. FINDINGS: There is straightening of the normal lumbar lordosis. There is no substantial scoliosis. Erosive changes seen in the inferior endplate of the L4 vertebrae and superior endplate of the L5 vertebrae consistent with erosive changes and possible osteomyelitis. L1-2: Spondylosis. Mild degree of disc space narrowing. L2-3: Marked degree of disc space narrowing. Minimal retrolisthesis of L2 and L3. Anterior spondylosis. L3-4: Marked degree of disc space narrowing with spondylosis and disc degeneration. L4-5: Marked degree of disc space narrowing. Erosive changes seen along the inferior endplate of the L4 vertebrae and superior endplate of the L5 vertebrae. No paraspinal soft tissue density is seen. Postoperative changes are seen in the posterior muscles overlying the operative site. Postoperative laminectomy and postoperative overlying soft tissue changes. L5-S1: Normal endplates. Normal disc height and morphology. Normal bilateral facet joints. Normal central canal and bilateral lateral recesses. Normal bilateral intervertebral neural foramina. Calcific plaques of the abdominal aorta. CT/Spine Lumbar without Contrast IMPRESSION: Findings suggestive of osteomyelitis of the L4 and L5 vertebrae as described with a marked degree of disc space narrowing at that site. No paravertebral soft tissue swelling is seen. Electronically Signed: Jaspreet Armstrong MD at 10:06 EDT ,
[2023-10-24 08:46] VITALS: O2SAT 97
--- NOTE | 2023-10-24 10:16 | PCM.PN.ID ---
Physical Exam Narrative Feeling better, back less sore, up at bedside with PT. No fever. Const alert and no apparent distress Resp normal air movement and clear to auscultation bilaterally Cardio regular rate and regular rhythm GI soft to palpation, non-tender and non-distended Skin no rashes or lesions noted ID ID: Route of nutrition/ use of supplements: [] Nutritional Intake: [] IV Site: [] Gan Catheter: [] Assessment & Plan Assessment/Plan (1) Altered mental status: (2) S/P laminectomy: (3) Discitis of lumbar region: PLAN: Had lumbar laminectomy and discectomy L4-5 on 07/18/[address] Godoy here. Since then, progressive pain, new fever and confusion. Bcx ngtd. Low suspicion for meningitis at this point. MRI shows suspected discitis/osteo. At risk for nosocomial organisms. No epidural abscess seen. Recommend aspiration of disc/bone with orosco culture sent to try to find an organism. Cont empiric vanc/ceftriaxone; if he worsens, would change ceftriaxone to cefepime to cover for pseudomonas. He is improved today. Will follow
[2023-10-24] MEDS: Sucralfate 1 GM Tablet PO (11:38)
--- NOTE | 2023-10-24 13:55 | NEURO.PNOTE ---
Assessment and Plan: Neuro Assessment/Plan JARET FIGUEROA, is a 68 M who had recurrent disc herniation, s/p repeat laminectomy L4-5 with discectomy and decompression of L5 nerve root in 07/2023. Since surgery in July, heh as had progressive back pain and intermittent fevers. Seen in clinic in August and MRI L spine was ordered to evaluate but was denied by insurance. HE is coming in now now with worsening back pain and some confusion over the past few days. MRI L spine consistent with discitis and osteomyelitis. MRI brain without contrast with small vessel white matter disease, no acute findings. He has been improving. He is alert oriented following commands appropriately. Lower suspicion for BOOK CRITIC infection at this time. His confusion is in the setting of underlying infection. Improvement is reassuring. Treatment of osteomyelitis/discitis per ID and primary team Delirium precautions I personally attended this patient and spent a total time of 45 minutes evaluating this patient including clinical assessment, review of chart, medical history imaging, and determining appropriate treatment and workup. Subject: Neurology Subjective JARET FIGUEROA is a 68 year old M, who we are seeing in consultation in the setting of osteomyelitis and discitis. Improving. NIHSS NIHSS Nursing Documentation NIHSS Nursing Documentation: NIHSS: Ischemic Stroke/TIA Start: 10/21/23 20:32 Text: For PCU Patients: NIH and Neuro Check every 4 Status: Complete hours and PRN Freq: [id number] Protocol: Activity Type Activity Date Activity User E-sign Co-sign Detail Recorded Client Recorded Date Recorded By Document 10/23/23 16:30 Desktop 10/23/23 18:01 10/23/23 16:30 NIH Stroke Scale [NIHSS] A score of 0 is normal or asymptomatic . Total possible score is 42. Inpatient: RN or Physician to activate a stroke alert for onset of new stroke symptoms or with NIHSS increase >/= 3 points. Following change in neurological status, NIHSS will be performed per physician order or more frequently PRN. -1a. Level of Consciousness Alert; keenly responsive -1b. LOC Questions Answers BOTH questions correctly. -1c. LOC Commands Performs both tasks correctly . -2. Best Gaze Normal -3. Visual No visual loss -4. Facial Palsy Normal symmetrical movements -5a. Left Arm No drift; arm holds 90 (or 45 ) degrees for full 10 seconds -5b. Right Arm No drift; arm holds 90 (or 45 ) degrees for full 10 seconds -6a. Left Leg Drift; leg falls by the end of 5- seconds, but does not hit bed -6b. Right Leg Drift; leg falls by the end of 5- seconds, but does not hit bed -7. Limb Ataxia Absent -8. Sensory Normal; no sensory loss -9. Best Language Mild-to- moderate aphasia; -10. Dysarthria Mild-to- moderate dysarthria; -11. Extinction and Inattention No abnormality -Total 4 Query Text:A score of 0 is normal or asymptomatic. Total possible score is 42 . ED: Notify Physician for NIHSS increase by > / = 3 points. Inpatient: RN or Physician to activate a stroke alert for NIHSS increase of > / = 3 points. Coma Scale [Assess] -Eye Opening Spontaneous -Motor Obeys Commands -Verbal Oriented [Total] -Coma Scale Total 15 EEG Results Procedure Details EEG Procedure Details: JARET FIGUEROA is a 68 year old M with a past medical history of , who presents for evaluation of Electroencephalogram on DATE at TIME Objective Data Objective Data Vital Signs: Vital Signs Temp Pulse Resp BP Pulse Ox O2 Del Method 97.8 F 68 18 114/86 H 97 Room Air 10/24/23 08:27 10/24/23 08:27 10/24/23 08:27 10/24/23 08:27 10/24/23 08:46 10/24/23 08:46 Oxygen Delivery Method Room Air Weight: 85.2 kg Body Mass Index (BMI) 26.9 Intake & Output: Intake and Output for Last 24 Hours 10/22/23 10/23/23 10/24/23 23:59 23:59 23:59 Intake Total 4305.00 / 4545.00 945 / 945 Output Total 550 / 1250 1200 / 1200 Balance 3755.00 / 3295.00 -255 / -255 Medical Nutrition Assessment Dietitian: Malnutrition Criteria Met Start: 10/22/23 17:13 Freq: Status: Active Protocol: Document 10/22/23 17:14 RMA (Rec: 10/22/23 17:14 RMA [id number]) Nutrition Malnutrition Evidence of Malnutrition Exists Yes Malnutrition (severe): Chronic Evidenced By Suboptimal Energy Intake ( Severe),Weight Loss (Severe) Clinical Problem Chronic Disease or Condition Related Malnutrition Etiology severe protein-calorie malnutrition in the context of chronic disease related to inadequate oral/ennergy intake Signs/Symptoms as evidenced by ~6-7% unintentional weight loss x past 1 month and PO meeting less than 50% estimated nutrition needs x 1-2 months Status Active Problem Recommendation Dietitian Recommendations/Changes Will adjust diet to 2000 calorie/consistent carbohydrate; cardiac. Will add 120ml glucerna shake 4 times per day w/ medpass. Will add 240mL glucerna shake w/ breakfast tray. Adjust ONS as need to optimize PO and prevent further weight loss. Lab / Micro Data 10/24/23 07:08 10/24/23 07:08 Labs: Laboratory Results - last 24 hr 10/23/23 12:03: POC Glucose 108 H 10/23/23 17:58: POC Glucose 97 10/23/23 19:04: Vancomycin Trough 14.3 10/23/23 21:01: POC Glucose 80 10/24/23 06:29: POC Glucose 91 10/24/23 07:08: WBC 6.7, RBC 3.94 L, Hgb 11.3 L, Hct 33.0 L, MCV 83.8, MCH 28.7, MCHC 34.2, RDW Std Deviation 40.3, RDW Coeff of Frankie 13.2, Plt Count 246, MPV 7.8, Immature Gran % (Auto) 0.300, Neut % (Auto) 75.2 H, Lymph % (Auto) 14.4 L, [place] % (Auto) 8.9, Eos % (Auto) 0.9, Baso % (Auto) 0.3, Absolute Neuts (auto) 5.1, Absolute Lymphs (auto) 0.97, Nucleated RBC % 0, Sodium 131 L, Potassium 3.3 L, Chloride 101, Carbon Dioxide 24.0, Anion Gap 6, BUN 17, Creatinine 0.53 L, Estim Creat Clear Calc 88.72, Est GFR (MDRD) Af Amer 199, Est GFR (MDRD) Non-Af 165, BUN/Creatinine Ratio 32.3 H, Glucose 97, Calcium 8.3 L, Total Bilirubin 1.40 H, AST 17, ALT 18, Alkaline Phosphatase 72, Total Protein 5.9 L, Albumin 2.8 L, Globulin 3.1, Albumin/Globulin Ratio 0.9 Micro: Microbiology 10/22/23 07:29 Blood Culture (Wb) - Right Hand Blood Culture - Preliminary No growth in 48 hours. 10/22/23 07:19 Blood Culture (Wb) - Anticubital Right Blood Culture - Preliminary No growth in 48 hours. 10/22/23 01:13 Mucosa - Nasopharyngeal Coronavirus COVID-19 PCR - Final 10/22/23 01:13 Mucosa - Nasopharyngeal Respiratory Panel (PCR) - Final Radiography Diagnostic Testing: Radiology Impression Echocardiogram 10/21/23 20:32 Interpretation Summary Normal LV size. Left ventricular systolic function is normal. The estimated ejection fraction is 60 %. Stage 1 diastolic dysfunction. Bubble contrast study negative for right to left interatrial shunt. Mild aortic stenosis. Mean aortic valve gradient 12 mmHg. Ordering Physician: Sara Reaves Performed By: Erasmo Malhotra RCS Lumbar Spine CT 10/24/23 08:45 IMPRESSION: Findings suggestive of osteomyelitis of the L4 and L5 vertebrae as described with a marked degree of disc space narrowing at that site. No paravertebral soft tissue swelling is seen. Electronically Signed: Jaspreet Armstrong MD at 10:06 EDT , Physical Exam Narrative Patient alert oriented x4, no aphasia or dysarthria. Naming adn comprehension intact. Follows commands appropriately. Able to do simple math. All extremities antigravity with no focal deficits.
[2023-10-24 14:33] LABS: Bedside Glucose 162 mg/dL (74-106)
[2023-10-24 15:08] VITALS: BP 118/72; PULSE 75; RESP 18; TEMP 36.6; O2SAT 95
[2023-10-24] MEDS: Haloperidol Lactate 5 MG/ML Vial 2 MG IV (16:46)
--- NOTE | 2023-10-24 17:13 | PN.HOSP_ITS ---
Reason for Visit Reason for Visit: Diagnoses Cerebral infarction, unspecified (10/21/23) Discitis, unspecified, lumbar region (10/21/23) Altered mental status, unspecified (10/21/23) Other specified postprocedural states (10/21/23) Objective Data Objective Data Vital Signs: Vital Signs Temp Pulse Resp BP Pulse Ox O2 Del Method 98 F 75 18 118/72 95 Room Air 10/24/23 15:08 10/24/23 15:08 10/24/23 15:08 10/24/23 15:08 10/24/23 15:08 10/24/23 15:08 Oxygen Delivery Method Room Air Weight: 187 lb 13.341 oz Body Mass Index (BMI) 26.9 Intake & Output: Intake and Output for Last 24 Hours 10/22/23 10/23/23 10/24/23 23:59 23:59 23:59 Intake Total 4305.00 / 4545.00 1485 / 1485 Output Total 550 / 1250 1999 Balance 3755.00 / 3295.00 -515 / -515 Medical Nutrition Assessment Dietitian: Malnutrition Criteria Met Start: 10/22/23 17:13 Freq: Status: Active Protocol: Document 10/22/23 17:14 RMA (Rec: 10/22/23 17:14 RMA [id number]) Nutrition Malnutrition Evidence of Malnutrition Exists Yes Malnutrition (severe): Chronic Evidenced By Suboptimal Energy Intake ( Severe),Weight Loss (Severe) Clinical Problem Chronic Disease or Condition Related Malnutrition Etiology severe protein-calorie malnutrition in the context of chronic disease related to inadequate oral/ennergy intake Signs/Symptoms as evidenced by ~6-7% unintentional weight loss x past 1 month and PO meeting less than 50% estimated nutrition needs x 1-2 months Status Active Problem Recommendation Dietitian Recommendations/Changes Will adjust diet to 2000 calorie/consistent carbohydrate; cardiac. Will add 120ml glucerna shake 4 times per day w/ medpass. Will add 240mL glucerna shake w/ breakfast tray. Adjust ONS as need to optimize PO and prevent further weight loss. Lab / Micro Data 10/24/23 07:08 10/24/23 07:08 Labs: Laboratory Results - last 24 hr 10/23/23 17:58: POC Glucose 97 10/23/23 19:04: Vancomycin Trough 14.3 10/23/23 21:01: POC Glucose 80 10/24/23 06:29: POC Glucose 91 10/24/23 07:08: WBC 6.7, RBC 3.94 L, Hgb 11.3 L, Hct 33.0 L, MCV 83.8, MCH 28.7, MCHC 34.2, RDW Std Deviation 40.3, RDW Coeff of Frankie 13.2, Plt Count 246, MPV 7.8, Immature Gran % (Auto) 0.300, Neut % (Auto) 75.2 H, Lymph % (Auto) 14.4 L, Edmunds % (Auto) 8.9, Eos % (Auto) 0.9, Baso % (Auto) 0.3, Absolute Neuts (auto) 5.1, Absolute Lymphs (auto) 0.97, Nucleated RBC % 0, Sodium 131 L, Potassium 3.3 L, Chloride 101, Carbon Dioxide 24.0, Anion Gap 6, BUN 17, Creatinine 0.53 L, Estim Creat Clear Calc 88.72, Est GFR (MDRD) Af Amer 199, Est GFR (MDRD) Non-Af 165, BUN/Creatinine Ratio 32.3 H, Glucose 97, Calcium 8.3 L, Total Bilirubin 1.40 H, AST 17, ALT 18, Alkaline Phosphatase 72, Total Protein 5.9 L, Albumin 2.8 L, Globulin 3.1, Albumin/Globulin Ratio 0.9 10/24/23 11:34: POC Glucose 162 H Micro: Microbiology 10/22/23 07:29 Blood Culture (Wb) - Right Hand Blood Culture - Preliminary No growth in 48 hours. 10/22/23 07:19 Blood Culture (Wb) - Anticubital Right Blood Culture - Preliminary No growth in 48 hours. 10/22/23 01:13 Mucosa - Nasopharyngeal Coronavirus COVID-19 PCR - Final 10/22/23 01:13 Mucosa - Nasopharyngeal Respiratory Panel (PCR) - Final Radiography Diagnostic Testing: Radiology Impression Lumbar Spine CT 10/24/23 08:45 IMPRESSION: Findings suggestive of osteomyelitis of the L4 and L5 vertebrae as described with a marked degree of disc space narrowing at that site. No paravertebral soft tissue swelling is seen. Electronically Signed: Jaspreet Armstrong MD at 10:06 EDT , Physical Exam Narrative Seen and examined. Patient sitting in the chair in the morning. No fever. In the afternoon nurse told me that patient is agitated, trying to get out of the bed and walking on the floor. Patient also has hallucinating. General: Awake alert oriented times 3 in the morning but afternoon patient got confused disoriented agitated. HEENT: Atraumatic, PERRLA, EOMI, Normocephalic Oral: No Gingival or Mucosal Lesions/ Ulcerations Neck: Supple, No JVD, Negative Carotid Bruits Chest wall/Lungs: Air entry diminished in bilateral lung bases. No crepitation/rhonchi Cardiovascular: Regular rate, Regular Rhythm, Normal S1, Normal S2, No M/G/R Abdomen: Bowel Sounds Present, Soft, Non Tender, Non-Distended : No dysuria. No renal angle tenderness. No suprapubic tenderness. Extremities: No edema, Capillary Refill Less than 3 Seconds Skin: No rashes, No breakdown Musculoskeletal: No Tenderness to Palpation of Joints or Extremities. Spine: Postop surgical scar well-healed. Mild tenderness present all around lumbar and paraspinal area. Muscle stiffness. ROM severely limited and painful even with slightest motion Neurological: Cranial nerves II-XII grossly intact, DTR 2+/4. No neck rigidity. Brudzinski sign positive of both legs on extension of calf muscle. Psych/Mental Status: Flat affect. Restless and agitated. Assessment & Plan Assessment/Plan (1) Acute CVA (cerebrovascular accident): PLAN: Plan The patient is a 68 y/o M is being admitted for intermittent fever after surgery along with confusion lethargy/altered mental status, severe back pain and expressive aphasia. Expressive aphasiadue to lethargy. #1. Acute encephalopathy/altered mental status/expressive aphasia probably re lated to pain medication: Patient was found very lethargic and was on oxycodone 7.5 mg 3 times daily as needed. Patient currently is awake and alert and in severe back pain with stiffness therefore oxycodone resumed. Patient was evaluated by neurologist and does not think patient to clinical he had a stroke but probably postop infection/complication as mentioned below. CT head and CTA head and neck does not show acute abnormality or LVO. Discontinue Plavix. 10/22: Patient did not had any fever. Tmax 99.3 Fahrenheit. Acute encephalopathy resolved. 10/23: Patient was fine yesterday but today restless and aggressive and agitated. Haldol 2 mg and 12.5 mg Phenergan ordered. Oxycodone dose was decreased to 2.5 mg for moderate pain and 5 mg for severe pain respectively. 2. Acute on chronic back pain with radiculopathy due to recurrent disc herniation status post repeat laminectomy L4-5 on the left with discectomy and decompression of L5 nerve root with with vertebral osteomyelitis and discitis of L4-L5: Patient had back surgery as mentioned above on 07/18/2023. As per he is having on and off fever and chills after surgery. Initially he had enuresis/bedwetting and then urinary incontinence since then. Patient has very restricted mobility due to back stiffness and pain and on oxycodone 7.5 mg 3 times daily as needed. Patient put back on oxycodone 7.5 mg 3 times daily with holding parameters. MRI lumbar spine with and without contrast and MRI brain with and without contrast on. But lumbar spine takes the priority. Will hold for spinal tap as patient might have lumbar abscess or infection. Discussed with the [facility] neurologist. Patient on IV vancomycin, ampicillin and ceftriaxone, meningitis regimen. Orthospine and ID are consulted. I talked to Dr. Godoy, spine surgeon. PT and OT ordered. TSH normal. 10/22: Patient still has severe back pain even on oxycodone 7.5 mg 3 times daily and Toradol 15 mg every 6 hourly as needed. Patient not move bowel for last 2 to 3 days therefore on Senna-S 2 tablet twice daily, MiraLAX and Dulcolax oral ordered. Oxycodone increased to 10 mg every 6 hourly as needed. MRI lumbar spine and brain with and without contrast were ordered but patient could only have noncontrast study because of severe pain. Discussed with the spine surgeon and does not think any paraspinal abscess but will wait for official report. Lumbar spine reported newly developed moderate marrow edema throughout L4-L5 vertebral bodies with mild liquefaction within disc of L4-L5 and mild cortical erosions of the endplates finding consistent with vertebral osteomyelitis and discitis. Disc spaces also narrowed. No demonstrated paraspinal abscess or any more swelling. No visualized epidural fluid collection. Patient on IV antibiotics. ID is consulted. MRI brain shows involutional chronic changes but minges could not be evaluated because of no intravenous contrast was administered for reasons mentioned above. 10/23: CT lumbar spine was done which similarly shows osteomyelitis and discitis. ID requested CT-guided biopsy. 3. Hypotonic isovolemic hyponatremia: Even though patient on IV fluid normal saline, serum sodium did not increase it remains 131. Will discontinue IV fluid. Patient might have SIADH after neurosurgery 10/22: Serum sodium is similar for last 3 days. 4. Hypokalemia: Admission K+ 3.2, magnesium level normal. Potassium replaced 10/20: Hypokalemia corrected. 10/13: Mild hypokalemia potassium corrected. B12 also low 177 therefore vitamin B12 ordered 5. Chronic asthma: Per current list not on inhalers,PRN albuterol, HOB, IS parameters. 6. CAD: Status post CABG x 3, continue aspirin, changed to high-dose statin. #7. Diabetes mellitus type II with chronic neuropathy: Hold oral home regimen, hemoglobin A1c 6.4, glucose controlled. Accu-Chek ACH cover with Humalog sliding scale. Continue patient home chronic gabapentin regimen. #8. Hyperlipidemia: Changing to high-dose statin regimen. LDL 123. HDL normal. #9. GERD: Will continue patient home PPI and sucralfate regimen. #10. BPH: We will continue patient on Flomax regimen. #11. Tobacco Abuse: Encouraged to tobacco cessation, inpatient consultation per RT, NR if desired. Patient usually uses 1 can every 3 to 4 days. #12. Restless leg syndrome: On a regimen, if necessary may add Requip #13. DVT prophylaxis: Lovenox. #14. CODE status: Patient HCPOA is his was present and living will is currently in place. Discussed CODE status at length including difference between FULL code, DNR-CCA and DNR-CC status. Following discussions about the differences in these status, requested Full Code status. Total time of the visit including total time spent in counseling or coordination of care, (more than 50% of the total time, spent in obtaining medical information from nurses and other ancillary care providers,explaining to the patient about labs, imaging, diagnosis and management of active complex medical conditions), complete history taking from patient's , discussion with [facility] neurologist and orthospine surgeon Dr. Walt Whitehead, review of labs and imaging is 40 minutes. Microbiology Past 72 Hours 10/22/23 01:13 Mucosa - Nasopharyngeal Coronavirus COVID-19 PCR - Final 10/22/23 01:13 Mucosa - Nasopharyngeal Respiratory Panel (PCR) - Final Laboratory Results 10/22/23 17:34: POC Glucose 139 H 10/22/23 20:46: POC Glucose 116 H 10/23/23 05:55: WBC 7.7, RBC 3.92 L, Hgb 11.2 L, Hct 33.3 L, MCV 84.9, MCH 28.6, MCHC 33.6, RDW Std Deviation 41.1, RDW Coeff of Frankie 13.3, Plt Count 256, MPV 8.1, Immature Gran % (Auto) 0.400, Neut % (Auto) 76.1 H, Lymph % (Auto) 14.6 L, Edmunds % (Auto) 8.2, Eos % (Auto) 0.4, Baso % (Auto) 0.3, Absolute Neuts (auto) 5.9, Absolute Lymphs (auto) 1.13, Nucleated RBC % 0, Sodium 132 L, Potassium 3.8, Chloride 102, Carbon Dioxide 23.0, Anion Gap 7, BUN 20 H, Creatinine 0.67 L , Estim Creat Clear Calc 88.72, Est GFR (MDRD) Af Amer 150, Est GFR (MDRD) Non- Af 124, BUN/Creatinine Ratio 29.8 H, Glucose 107 H, Calcium 8.0 L, Total B ilirubin 1.30 H, AST 17, ALT 20, Alkaline Phosphatase 69, Total Protein 5.8 L, Albumin 2.8 L, Globulin 3.0, Albumin/Globulin Ratio 0.9, Vitamin B12 177 L, TSH 2.40 10/23/23 06:38: POC Glucose 104 Clinical Impression(s) from Imaging Studies Brain CT 10/21/23 17:19 IMPRESSION: Chronic age related changes and atrophy. No acute abnormality or significant change. Electronically Signed: Toribio Giraldo MD at 17:34 EST , ADDENDUM: 10/21/23 1746 IMPRESSION: Chronic age related changes and atrophy. No acute abnormality or significant change. N.B. : The above Results were Read Back by Toribio Giraldo MD to Kayli Granados DO, and understanding confirmed on 10/21/2023 17:39:16 (ET). Electronically Signed: Toribio Giraldo MD at 17:34 EST , Head/Neck CTA 10/21/23 17:19 IMPRESSION: No acute abnormality. No large vessel occlusions. 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 Electronically Signed: Toribio Giraldo MD at 17:49 EST Reading Location ID and State: [facility] / [place] , Service support , ADDENDUM: 10/21/23 1758 IMPRESSION: No acute abnormality. No large vessel occlusions. 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 N.B. : The above Results were Read Back by Toribio Giraldo MD to Kayli Granados DO, and understanding confirmed on 10/21/2023 17:51:20 (ET). Electronically Signed: Toribio Giraldo MD at 17:49 EST Reading Location ID and State: [facility] / [place] , Service support , Chest X-Ray 10/21/23 18:05 IMPRESSION: No definite acute or significant abnormality seen. Electronically Signed: Toribio Giraldo MD at 19:00 EST , Charges/Coding Visit Charges Inpatient E&M: 45523 Subs Hosp L2
[2023-10-24 17:55] VITALS: BMI 26.9
[2023-10-24] MEDS: hydrOXYzine 50 MG/ML Vial 100 MG IM (19:20)
--- NOTE | 2023-10-24 22:46 | NURSING ---
191 pt refuses to stay in bed or his room. disoriented and combative to staff. unsteady with walking. verbally threatening staff members, and elbowing 2 staff members in the chest . code denise called. 100mg vistaril IM given.
[2023-10-25] VITALS (24 sets, daily range): BP systolic 104–150; BP diastolic 73–92; PULSE 80–104; RESP 12–19; TEMP 36.4–36.8; O2SAT 93–99; BMI 26.5
[2023-10-25] MEDS: Ceftriaxone 2 GM in 0.9% Normal Saline (50mL MB+) 50 ML IV ×3 (00:36→20:50)
[2023-10-25 07:39] LABS: Absolute Lymphocyte Count 1.38 X10^3/uL (0.83-4.51); Absolute Neutrophil Count 6.6 X10^3/uL (2.0-7.7); Basophil# 0.03 X10^3/uL; Basophil% 0.3 % (0-1); Eosinophil# 0.02 X10^3/uL; Eosinophils% 0.2 % (0-5); Hemoglobin 12.2 g/dL (13.0-16.5); Lymphocyte # 1.38 X10^3/ul (0.83-4.51); Lymphocyte % 15.5 % (19-41); Mean Corp Hgb Conc 34.9 g/dL (32-36); Mean Corpuscular Hgb 28.4 pg (27.0-32.0); Mean Corpuscular Volume 81.4 fL (80-94); Mean Platelet Vol. 7.7 fl (6.2-12.0); Monocyte# 0.87 X10^3/uL; Monocyte% 9.8 % (0-10); NRBC Flagged by Analyzer 0 % (0-5); Neutrophil # 6.58 X10^3/uL (2.7-7.7); Neutrophil % 73.8 % (47-70); Platelet Count 242 K/mm3 (150-450); RBC Distribution Width SD 38.3 fl (35.1-43.9); White Blood Count 8.9 K/mm3 (4.4-11.0)
[2023-10-25 08:03] LABS: Prothrombin Time (Protime)PT. 13.6 SECONDS (11.7-14.9)
[2023-10-25 08:07] LABS: Anion Gap 9 (5-15); BUN 11 mg/dL (7-18); BUN/Creat Ratio 17.3 RATIO (10-20); Calcium,Total 8.6 mg/dL (8.5-10.1); Chloride 92 mmol/L (98-107); Creatinine, Serum 0.64 mg/dL (0.70-1.30); EST Glomerular Filtration Rate 132 mL/min (>60); Est Glom Filt Rate - Afr Amer 160 mL/min (>60); Estimated Creatinine Clearance 88.72 ml/min; Glucose 109 mg/dL (74-106); Potassium 3.1 mmol/L (3.5-5.1); Sodium Level 126 mmol/L (136-145)
[2023-10-25 08:12] LABS: Vancomycin, Trough Level 13.6 ug/mL (5.0-15.0)
--- NOTE | 2023-10-25 08:27 | CT_ITS ---
PROCEDURE: CT GUIDED transpylorically biopsy aspiration of the L4-L5 disc space. DATE: October 25, 2023. INDICATION: Male, 68 years old. Postoperative discitis. PHYSICIAN: Jaspreet Armstrong M.D. RADIATION DOSAGE (If Supplied By Facility): CTDIvol = ( 14 ) mGy, DLP = ( 777.91 ) mGycm. Individualized dose optimization techniques were utilized. PROCEDURE: The risks, benefits, and alternatives to the procedure were explained to the patient. The specific risk of hemorrhage requiring further treatment or intervention was detailed and accepted. Follow-up instructions were discussed with the patient as well. Written informed consent was obtained. The patient was brought into the CT suite and placed in the prone position. . An appropriate entry site was identified. The overlying skin was prepped and draped in the usual sterile fashion. 1% lidocaine was administered subcutaneously for local anesthesia. Under CT guidance, a left transpedicle approach to the L4-L5 disc was performed using an 11-gauge bone marrow biopsy kit. The specimens were then placed in the appropriate fluid and transported to the laboratory for analysis. Hemostasis was obtained. The patient tolerated the procedure well without immediate complications. CT/Biopsy/Inj or Needle Placement IMPRESSION: Successful CT guided left transpedicular approach aspiration of the L4-L5 disc space level, as described above. Conscious sedation protocol was followed. Electronically Signed: Jaspreet Armstrong MD at 14:09 EDT ,
--- NOTE | 2023-10-25 08:54 | PCM.RX.CS ---
Consult Antibiotic Management Pharmacy has been consulted to manage selected antibiotic: Vancomycin Type of Intervention Type of Consult: Follow-up Prior Doses of Antibiotics Prior Doses of Antibiotics Received/Current Regimen: current dose is vanc 1750mg IV q12h Labs Labs: Sodium 126 mmol/L (136-145) L 10/25/23 07:30 Potassium 3.1 mmol/L (3.5-5.1) L 10/25/23 07:30 Chloride 92 mmol/L (98-107) L 10/25/23 07:30 Carbon Dioxide 25.0 mmol/L (21.0-32.0) 10/25/23 07:30 Anion Gap 9 (5-15) 10/25/23 07:30 BUN 11 mg/dL (7-18) 10/25/23 07:30 Creatinine 0.64 mg/dL (0.70-1.30) L 10/25/23 07:30 Est GFR (MDRD) Af Amer 160 mL/min (>60) 10/25/23 07:30 Est GFR (MDRD) Non-Af 132 mL/min (>60) 10/25/23 07:30 BUN/Creatinine Ratio 17.3 RATIO (10-20) 10/25/23 07:30 Glucose 109 mg/dL (74-106) H 10/25/23 07:30 Vancomycin Trough 13.6 ug/mL (5.0-15.0) 10/25/23 07:30 Microbiology Microbiology: Microbiology 10/22/23 07:29 Blood Culture (Wb) - Right Hand Blood Culture - Preliminary No growth in 48 hours. 10/22/23 07:19 Blood Culture (Wb) - Anticubital Right Blood Culture - Preliminary No growth in 48 hours. 10/22/23 01:13 Mucosa - Nasopharyngeal Coronavirus COVID-19 PCR - Final 10/22/23 01:13 Mucosa - Nasopharyngeal Respiratory Panel (PCR) - Final Dosing Weight Weight used for dosin.8 kg Estimated Creatinine Clearance Estimated Creatinine Clearance: 89 ml/min Goal Trough Goal Trough: 15-20 mcg/mL Pharmacy Plan for Drug Dosing Pharmacy Plan for Drug Dosing: The vanc trough drawn at 07:30 today was 13.6. The previous dose was given late so the trough was drawn at only 9 hours after that dose. It would've been even lower if drawn closer to the 12-hr ben. Since below goal, will increase dose to 2000mg IV q12h. If this new dose does not take the trough up into goal range, will have to change to q8h dosing. Will order a trough to be drawn before the 4th dose tomorrow night. Pharmacy Service will continue to monitor and adjust dosing as required. Follow-Up Labs Follow-Up Labs: Trough: Vancomycin Date/Time Labs Ordered Labs to be done on [date and time ordered]: 10/26/23 20:30
[2023-10-25] MEDS: Vancomycin HCl 2,000 MG in 0.9% Normal Saline (500mL Bag) 500 ML 250 MG IV ×2 (09:16→20:50)
[2023-10-25] MEDS: 0.9% Saline Lock 10 ML Syringe IV ×3 (09:17→15:48)
[2023-10-25 09:28] LABS: Bedside Glucose 132 mg/dL (74-106)
[2023-10-25 10:08] LABS: Hemoglobin A1c 6.2 % (3.8-5.6)
--- NOTE | 2023-10-25 10:28 | CONS.ORTHO ---
HPI Consult Data Date of Consult: 10/25/23 HPI Narrative HPI Narrative: I was requested to review the patient's imaging and discuss possibility of performing a CT-guided biopsy for his L4-5 discitis. From a review of his records and discussion with Dr. Godoy, patient underwent L4-5 revision laminectomy discectomy in July which was complicated with a CSF leak that was sealed intraoperatively. He improved after the surgery but had persistent pain that required evaluation by an MRI. The MRI was denied by insurance in August. He was then admitted and evaluated with an MRI and CT over the last few days which revealed an L4-5 discitis. While patient has been started on empiric antibiotic, ID recommends a CT-guided biopsy for tissue diagnosis as well as culture sensitivity to allow more targeted antibiotic treatment. Per discussion with Dr. Godoy, it was felt that IR may not be able to perform CT-guided biopsy and Dr. Godoy requested me to perform the CT-guided biopsy and assistance with IR physician and Dr. Godoy himself. I have requested patient to be n.p.o. this morning and discussed with CT scan regarding requirement of sedation and equipment for the procedure. We will schedule this procedure at noon today. Saw patient today. Severe low back pain, difficulty ambulating. [facility] Medical History Agent orange exposure Alcohol use Ambulates with cane Arthritis Arthropathy of cervical facet joint Asthma Atherosclerotic heart disease of [place] coronary artery without angina pectoris Back pain Bilirubinuria Cancer Cardiology follow-up encounter Cervical spondylosis Chondromalacia of both patellae Chondromalacia, left knee Chondromalacia, right knee Contact with or exposure to other viral diseases COVID-19 virus detected (11/19/20) Degeneration of cervical disc without myelopathy Degeneration of intervertebral disc of lumbosacral region Diabetes Fusion of spine, cervical region High cholesterol (~08/21/23) History of echocardiogram History of IBS History of pain when walking History of steroid therapy History of stress test Hyperlipemia Injury of head and neck Left knee DJD Nonrheumatic aortic (valve) stenosis with insufficiency Obesity Opioid dependence Prostate disease Radiculopathy of lumbosacral region Restless legs Right knee DJD Shortness of breath on exertion Smokeless tobacco use Spinal stenosis of lumbosacral region Spondylosis of lumbosacral region without myelopathy or radiculopathy Syncope Tear of medial meniscus of right knee Type 2 diabetes mellitus Wears hearing aid Home Medications aspirin 81 mg tablet,delayed release 81 mg PO DAILY HEART HEALTH 12/23/15 [History Last Taken 07/11/23] multivitamin 1 tab PO DAILY supplement 07/09/19 [History Last Taken 07/17/23 06:00] baclofen 10 mg tablet 10 mg PO TID PRN PRN Muscle Spasm 05/14/20 [History Last Taken 07/17/23 18:00] gabapentin 100 mg capsule 200 mg PO TID neuropathy 05/14/20 [History Last Taken 07/17/23 18:00] naproxen sodium 220 mg capsule (Aleve) 220 mg PO BID PRN Pain 02/04/22 [History Last Taken 07/17/23 18:00] albuterol sulfate 90 mcg/actuation aerosol inhaler 1 - 2 puff inhalation Q4H PRN PRN Wheezing #8.5 grams 04/21/22 [Rx Last Taken Unknown] handicap placard #1 ea 04/21/22 [Rx Last Taken Unknown] blood sugar diagnostic (FreeStyle Lite Strips) #100 ea 09/15/22 [Rx Last Taken Unknown] blood-glucose meter (FreeStyle Lite Meter kit) #1 ea 09/15/22 [Rx Last Taken Unknown] fluticasone propionate 50 mcg/actuation nasal spray,suspension 1 - 2 spray intranasal BID PRN allergies, congestion #16 grams 04/27/23 [Rx Last Taken 07/18/23 03:00] metformin 500 mg tablet 500 mg PO BID DIABETES #180 tabs 04/27/23 [Rx Last Taken 07/17/23 18:00] linaclotide 72 mcg capsule 72 mcg PO DAILY IBS #90 caps 06/27/23 [Rx Last Taken 07/17/23 06:00] acetaminophen 500 mg capsule 1,000 mg PO Q6H PRN pain 07/18/23 [History Last Taken 07/17/23 18:00] atorvastatin 40 mg tablet 40 mg PO QHS CHOLESTEROL #90 tabs 08/21/23 [Rx Last Taken Unknown] medical marijuana card PO unknown 08/21/23 [History Last Taken Unknown] omeprazole 40 mg capsule,delayed release 40 mg PO DAILY PRN Reflux #30 caps 08/21/23 [Rx Last Taken Unknown] trazodone 50 mg tablet 50 - 100 mg (1 - 2 x 50 mg) PO QHS sleep #90 tabs 08/21/23 [Rx Last Taken Unknown] sucralfate 1 gram tablet (Carafate) 1 g PO QACHS #30 tabs 09/27/23 [Rx Last Taken Unknown] metoclopramide HCl 10 mg tablet (Reglan) 10 mg PO Q8H PRN PRN nausea and vomiting #14 tabs 10/01/23 [Rx Last Taken Unknown] ondansetron 4 mg disintegrating tablet 4 mg PO Q6H PRN nausea and vomiting #20 tabs 10/03/23 [Rx Last Taken Unknown] oxycodone 5 mg tablet 7.5 mg PO TID PRN PRN pain 10/21/23 [History Last Taken Unknown] tamsulosin 0.4 mg capsule 0.4 mg PO QHS PRN urinary retention 10/21/23 [History Last Taken Unknown] Allergy/AdvReac Type Severity Reaction Status Date / Time adhesive tape Allergy Rash Verified 10/21/23 17:52 sertraline [From Zoloft] AdvReac Unknown Verified 10/21/23 17:52 Family History (Updated 10/21/23 @ 20:[address] Sara Reaves MD) Brother Heart disease Myocardial infarction 60's CAD (coronary artery disease) Father Myocardial infarction 65 CAD (coronary artery disease) Mother HLD (hyperlipidemia) when son was 16 following MVA, healthy aside HLD. Surgical History H/O cervical spine surgery (08/2020) H/O coronary artery bypass surgery (09/14/11) History of back surgery History of carpal tunnel release History of herniorrhaphy History of lateral meniscus repair of right knee (~2021) History of left heart catheterization (09/09/11) Hx laparoscopic cholecystectomy (~11/2022) Hx of bilateral cataract extraction Status post discectomy for herniated nucleus pulposus Social History (Updated 10/21/23 @ 20:[address] Sara Reaves MD) household members: spouse Smoking Status: Never smoker Smokeless tobacco user: chewing tobacco alcohol intake: current alcohol intake frequency: a few times a month substance use type: does not use caffeine: Yes Type: coffee Number of servings: 2 Vital Signs Vital Signs Vital Signs: 10/24/23 10:48 10/24/23 15:08 10/24/23 14:25 Temperature 98 F Temperature Source Temporal Pulse Rate 75 Pulse Strength Normal (2+) Respiratory Rate 18 Respiratory Effort Normal Non-Labored Respiratory Depth Normal Respiratory Pattern Normal Blood Pressure 118/72 Blood Pressure Mean 87 Blood Pressure Source Monitor Blood Pressure Position Semi-Fowlers Blood Pressure Location Right Arm Pulse Ox 95 Oxygen Delivery Method Room Air Room Air 10/24/23 22:00 10/25/23 05:45 10/25/23 07:46 Temperature 97.6 F L Temperature Source Temporal Pulse Rate 80 Pulse Strength Normal (2+) Respiratory Rate 16 Respiratory Effort Respiratory Depth Respiratory Pattern Blood Pressure 146/83 H Blood Pressure Mean 104 Blood Pressure Source Blood Pressure Position Blood Pressure Location Left Arm Pulse Ox 96 97 Oxygen Delivery Method Room Air Room Air Weight Weight: 184 lb 11.958 oz Body Mass Index (BMI) 26.5 Physical Exam Narrative Back incision scar. Neuro-intact, except for painful hip flexion and knee ext. Medical Records Data Medical Nutrition Assessment Dietitian: Malnutrition Criteria Met Start: 10/22/23 17:13 Freq: Status: Active Protocol: Document 10/22/23 17:14 RMA (Rec: 10/22/23 17:14 RMA [id number]) Nutrition Malnutrition Evidence of Malnutrition Exists Yes Malnutrition (severe): Chronic Evidenced By Suboptimal Energy Intake ( Severe),Weight Loss (Severe) Clinical Problem Chronic Disease or Condition Related Malnutrition Etiology severe protein-calorie malnutrition in the context of chronic disease related to inadequate oral/ennergy intake Signs/Symptoms as evidenced by ~6-7% unintentional weight loss x past 1 month and PO meeting less than 50% estimated nutrition needs x 1-2 months Status Active Problem Recommendation Dietitian Recommendations/Changes Will adjust diet to 2000 calorie/consistent carbohydrate; cardiac. Will add 120ml glucerna shake 4 times per day w/ medpass. Will add 240mL glucerna shake w/ breakfast tray. Adjust ONS as need to optimize PO and prevent further weight loss. Lab / Micro Data 10/25/23 07:30 10/25/23 07:30 Labs: Laboratory Results - last 24 hr 10/24/23 11:34: POC Glucose 162 H 10/24/23 16:48: POC Glucose 132 H 10/25/23 07:30: WBC 8.9, RBC 4.30 L, Hgb 12.2 L, Hct 35.0 L, MCV 81.4, MCH 28.4, MCHC 34.9, RDW Std Deviation 38.3, RDW Coeff of Frankie 13.0, Plt Count 242, MPV 7.7, Immature Gran % (Auto) 0.400, Neut % (Auto) 73.8 H, Lymph % (Auto) 15.5 L, Haakon % (Auto) 9.8, Eos % (Auto) 0.2, Baso % (Auto) 0.3, Absolute Neuts (auto) 6.6, Absolute Lymphs (auto) 1.38, Nucleated RBC % 0, PT 13.6, INR 1.0, Sodium 126 L, Potassium 3.1 L, Chloride 92 L, Carbon Dioxide 25.0, Anion Gap 9, BUN 11, Creatinine 0.64 L, Estim Creat Clear Calc 88.72, Est GFR (MDRD) Af Amer 160, Est GFR (MDRD) Non-Af 132, BUN/Creatinine Ratio 17.3, Glucose 109 H, Hemoglobin A1c 6.2 H, Calcium 8.6, Vancomycin Trough 13.6 Micro: Microbiology 10/22/23 07:29 Blood Culture (Wb) - Right Hand Blood Culture - Preliminary No growth in 48 hours. 10/22/23 07:19 Blood Culture (Wb) - Anticubital Right Blood Culture - Preliminary No growth in 48 hours. Assessment & Plan Assessment/Plan (1) Discitis of lumbar region: PLAN: Plan I have reviewed the CT and MRI of lumbar spine done over the last 2 days. These show postsurgical changes of L4-5 laminectomy. I also reviewed the MRI from prior to the July surgery which showed an L4-5 left paracentral disc herniation. The new CT and MRI show evidence of L4-5 endplate irregularity suggestive of discitis. No vacuum phenomenon noticed at L4-5 but vacuum phenomenon noticed at L3-4. Significant superior L5 endplate erosion noticed. Patient has significant foraminal height loss bilaterally. I discussed with Dr. Godoy the imaging findings. I discussed the procedure in detail with patient and family member. Typical approach to the disc would be through the foramen but the patient has significant foraminal height loss and foraminal stenosis which may increase the chances of exiting nerve root injury. One of the possible approaches may be through the L5 pedicle directed upwards going to the L4-5 disc space, with the downside of a track through bone potentially causing spread of organism to the bone and osteomyelitis. Patient however already has an evidence of osteomyelitis involving the superior L5 endplate. Patient is also on antibiotic cover with empiric antibiotics over the last 2 to 3 days. The risks of biopsy may include but are not limited to persistent infection, bleeding, hematoma formation, need for further surgery, injury to nerves and vessels, spread of infection to surrounding structures, bacteremia, septicemia, CSF leak, headache, noninfectious pathology, nerve root injury, nerve and cauda equina compression from hematoma or infectious material, vasovagal shock, persistent pain, need for surgical intervention, DVT, pulmonary embolism, cardiopulmonary event. Patient understands and agrees to proceed. Consent was signed. Charges/Coding Visit Charges Inpatient E&M: 12893 Init Hosp L3
[2023-10-25] MEDS: 0.9% Normal Saline (250mL Bag) 250 ML 15 ML IV (12:41)
[2023-10-25] MEDS: Midazolam 2 MG/2 ML Syringe IV ×2 (12:43→12:59)
[2023-10-25] MEDS: fentaNYL 100 MCG/2 ML Ampul IV (12:44)
[2023-10-25] MEDS: Vancomycin Trough/Random Due 1 LAB MC (12:46)
[2023-10-25] MEDS: Lidocaine 2% (20 ml mdv) 20 ML Vial INFILT (13:07)
[2023-10-25 14:43] LABS: Bone Marrow Aspiraton SEE PATHOLOGY REPORT; Pathology Specimen Additional SEE PATHOLOGY REPORT
--- NOTE | 2023-10-25 15:05 | PRO.PCM_ITS ---
Procedure Report Date of Procedure: 10/25/23 Preoperative diagnosis: L4-5 discitis osteomyelitis Postoperative diagnosis: Same Surgeon: Dr. Bjorn Bradshaw Plant Operations Engineer: Dr. Jaspreet Armstrong Name of procedure: CT-guided transpedicular biopsy and aspiration of L4-5 disc space -Biopsy and aspiration of L4-5 disc space, CPT code 75715 -CT-guided biopsy, CPT code 24638 Anesthesia: Conscious sedation with 2 mg Versed and 50 mcg fentanyl, monitored by IR nursing Complications: None Findings: Bloody aspirate without obvious purulence sent for cultures, small pieces of bone and core biopsies sent for pathology. Indications for procedure: Patient underwent L5 revision decompression with discectomy in July. He continues to have persistent low back pain which was evaluated with an MRI 2 days ago and was found to have L4-5 discitis with endplate erosions and history of osteomyelitis. CT confirmed the diagnosis. No obvious extraspinal abscesses or collections. Patient was started on empiric antibiotics, infectious disease recommended biopsy for directed antibiotic treatment. All risk benefits and alternatives were discussed with the patient prior to the procedure. The risks include but are not limited to persistent infection, bleeding, hematoma formation, need for further surgery, injury to nerves and vessels, spread of infection to surrounding structures, bacteremia, septicemia, CSF leak, headache, noninfectious pathology, nerve root injury, nerve and cauda equina compression from hematoma or infectious material, vasovagal shock, persistent pain, need for surgical intervention, DVT, pulmonary embolism, cardiopulmonary event. Patient understands and agrees to proceed. Consent was signed. Description of procedure: Patient was assisted into a prone position on the CT scanner. Adequate cushioning of all bony prominences was performed. Timeout was performed. Conscious sedation with 2 mg Versed and 50 mcg of fentanyl was performed. Patient was monitored throughout the procedure by IR nursing. CT scan was performed with skin marking grade to identify entry point for the biopsy needle. A trajectory going through the left L5 pedicle directed superiorly into the L4-5 disc space was felt to be ideal. Due to significant foraminal stenosis, transforaminal route was not utilized. 2% lidocaine was injected underneath the skin for local anesthesia. Longer needle using a spinal needle was used to inject additional local anesthetic along the track of the needle. Scalpel was used to make a small incision of 3 mm on the skin. [employer] needle was introduced in the appropriate trajectory and was docked onto a bony surface likely transverse process. This was confirmed with a CT scan. The needle was then repositioned to be interaction with the left L5 pedicle and the scan confirmed this. With the help of a mallet the [employer] needle was entered into bone and the direction slightly cephalad to point towards L4-5 disc space. This was again confirmed with CT scan to be in appropriate position in the L4-5 disc space. Core biopsies were performed. Small pieces of bone were identified in the core biopsies. The core needle was advanced and a 50 cc syringe was used to aspirate. Bloody aspirate was obtained without obvious purulence. Once adequate specimen for pathology as well as microbiology was obtained, the needle was removed and pressure was applied for hemostasis. Dressing was applied with OpSite. Patient tolerated the procedure well and was then transferred onto the hospital bed. Procedures Musculoskeletal [id number]: Other Procedure See Report
--- NOTE | 2023-10-25 16:33 | PCM.PN.HOSP ---
Reason for Visit Reason for Visit: Diagnoses Cerebral infarction, unspecified (10/21/23) Discitis, unspecified, lumbar region (10/21/23) Altered mental status, unspecified (10/21/23) Other specified postprocedural states (10/21/23) Objective Data Objective Data Vital Signs: Vital Signs Temp Pulse Resp BP Pulse Ox O2 Del Method 97.9 F 88 16 150/82 H 93 Room Air 10/25/23 14:30 10/25/23 14:30 10/25/23 14:30 10/25/23 14:30 10/25/23 14:30 10/25/23 14:30 Oxygen Delivery Method Room Air Weight: 184 lb 11.958 oz Body Mass Index (BMI) 26.5 Intake & Output: Intake and Output for Last 24 Hours 10/23/23 10/24/23 10/25/23 23:59 23:59 23:59 Intake Total 4305.00 / 4545.00 1785 / 1785 1375 / 1375 Output Total 550 / 1250 2500 / 2500 Balance 3755.00 / 3295.00 -715 / -715 1375 / 1375 Medical Nutrition Assessment Dietitian: Malnutrition Criteria Met Start: 10/22/23 17:13 Freq: Status: Active Protocol: Document 10/22/23 17:14 RMA (Rec: 10/22/23 17:14 RMA [id number]) Nutrition Malnutrition Evidence of Malnutrition Exists Yes Malnutrition (severe): Chronic Evidenced By Suboptimal Energy Intake ( Severe),Weight Loss (Severe) Clinical Problem Chronic Disease or Condition Related Malnutrition Etiology severe protein-calorie malnutrition in the context of chronic disease related to inadequate oral/ennergy intake Signs/Symptoms as evidenced by ~6-7% unintentional weight loss x past 1 month and PO meeting less than 50% estimated nutrition needs x 1-2 months Status Active Problem Recommendation Dietitian Recommendations/Changes Will adjust diet to 2000 calorie/consistent carbohydrate; cardiac. Will add 120ml glucerna shake 4 times per day w/ medpass. Will add 240mL glucerna shake w/ breakfast tray. Adjust ONS as need to optimize PO and prevent further weight loss. Lab / Micro Data 10/25/23 07:30 10/25/23 07:30 Labs: Laboratory Results - last 24 hr 10/24/23 16:48: POC Glucose 132 H 10/25/23 07:30: WBC 8.9, RBC 4.30 L, Hgb 12.2 L, Hct 35.0 L, MCV 81.4, MCH 28.4, MCHC 34.9, RDW Std Deviation 38.3, RDW Coeff of Frankie 13.0, Plt Count 242, MPV 7.7, Immature Gran % (Auto) 0.400, Neut % (Auto) 73.8 H, Lymph % (Auto) 15.5 L, [place] % (Auto) 9.8, Eos % (Auto) 0.2, Baso % (Auto) 0.3, Absolute Neuts (auto) 6.6, Absolute Lymphs (auto) 1.38, Nucleated RBC % 0, PT 13.6, INR 1.0, Sodium 126 L, Potassium 3.1 L, Chloride 92 L, Carbon Dioxide 25.0, Anion Gap 9, BUN 11, Creatinine 0.64 L, Estim Creat Clear Calc 88.72, Est GFR (MDRD) Af Amer 160, Est GFR (MDRD) Non-Af 132, BUN/Creatinine Ratio 17.3, Glucose 109 H, Hemoglobin A1c 6.2 H, Calcium 8.6, Vancomycin Trough 13.6 Micro: Microbiology 10/22/23 07:29 Blood Culture (Wb) - Right Hand Blood Culture - Preliminary No growth in 48 hours. 10/22/23 07:19 Blood Culture (Wb) - Anticubital Right Blood Culture - Preliminary No growth in 48 hours. 10/22/23 01:13 Mucosa - Nasopharyngeal Coronavirus COVID-19 PCR - Final 10/22/23 01:13 Mucosa - Nasopharyngeal Respiratory Panel (PCR) - Final Radiography Diagnostic Testing: Radiology Impression Biopsy CT 10/25/23 08:27 IMPRESSION: Successful CT guided left transpedicular approach aspiration of the L4-L5 disc space level, as described above. Conscious sedation protocol was followed. Electronically Signed: Jaspreet Armstrong MD at 14:09 EDT , Physical Exam Narrative Seen and examined. Patient also gets intermittently confused last night and agitated. In the morning he is coherent. Awake and gives history. Back pain better. In the morning, patient sitting on the bed. Plan for CT-guided lumbar biopsy. Physical exam General: Awake, intermittently confused and hallucination. Disoriented to time and place. HEENT: Atraumatic, PERRLA, EOMI, Normocephalic Oral: No Gingival or Mucosal Lesions/ Ulcerations Neck: Supple, No JVD, Negative Carotid Bruits Chest wall/Lungs: Air entry diminished in bilateral lung bases. No crepitation/rhonchi Cardiovascular: Regular rate, Regular Rhythm, Normal S1, Normal S2, No M/G/R Abdomen: Bowel Sounds Present, Soft, Non Tender, Non-Distended : No dysuria. No renal angle tenderness. No suprapubic tenderness. Extremities: No edema, Capillary Refill Less than 3 Seconds Skin: No rashes, No breakdown Musculoskeletal: No Tenderness to Palpation of Joints or Extremities. Spine: Postop surgical scar well-healed. Mild tenderness present all around lumbar and paraspinal area. Muscle stiffness is better. Can lift leg strength 4/5 at knee and hip joints. Neurological: Cranial nerves II-XII grossly intact, DTR 2+/4. No neck rigidity. Brudzinski sign positive of both legs on extension of calf muscle. Psych/Mental Status: Flat affect. Quiet but at times restless and agitated. Assessment & Plan Assessment/Plan (1) Acute CVA (cerebrovascular accident): PLAN: Plan The patient is a 68 y/o M is being admitted for intermittent fever after surgery along with confusion lethargy/altered mental status, severe back pain and expressive aphasia. Expressive aphasiadue to lethargy. #1. Acute encephalopathy/altered mental status/expressive aphasia probably related to pain medication: Patient was found very lethargic and was on oxycodone 7.5 mg 3 times daily as needed. Patient currently is awake and alert and in severe back pain with stiffness therefore oxycodone resumed. Patient was evaluated by neurologist and does not think patient to clinical he had a stroke but probably postop infection/complication as mentioned below. CT head and CTA head and neck does not show acute abnormality or LVO. Discontinue Plavix. 10/22: Patient did not had any fever. Tmax 99.3 Fahrenheit. Acute encephalopathy resolved. 10/23: Patient was fine yesterday but today restless and aggressive and agitated. Haldol 2 mg and 12.5 mg Phenergan ordered. Oxycodone dose was decreased to 2.5 mg for moderate pain and 5 mg for severe pain respectively. 10/24:Patient on oxycodone 2.5 to 5 mg low-dose for moderate to severe pain respectively. Patient was given hydroxyzine 100 mg IM for agitation last night. Started on risperidone 0.5 mg twice daily with holding parameters for lethargy/sedation. 2. Acute on chronic back pain with radiculopathy due to recurrent disc herniation status post repeat laminectomy L4-5 on the left with discectomy and decompression of L5 nerve root with with vertebral osteomyelitis and discitis of L4-L5: Patient had back surgery as mentioned above on 07/18/2023. As per he is having on and off fever and chills after surgery. Initially he had enuresis/bedwetting and then urinary incontinence since then. Patient has very restricted mobility due to back stiffness and pain and on oxycodone 7.5 mg 3 times daily as needed. Patient put back on oxycodone 7.5 mg 3 times daily with holding parameters. MRI lumbar spine with and without contrast and MRI brain with and without contrast on. But lumbar spine takes the priority. Will hold for spinal tap as patient might have lumbar abscess or infection. Discussed with the [facility] neurologist. Patient on IV vancomycin, ampicillin and ceftriaxone, meningitis regimen. Orthospine and ID are consulted. I talked to Dr. Godoy, spine surgeon. PT and OT ordered. TSH normal. 10/22: Patient still has severe back pain even on oxycodone 7.5 mg 3 times daily and Toradol 15 mg every 6 hourly as needed. Patient not move bowel for last 2 to 3 days therefore on Senna-S 2 tablet twice daily, MiraLAX and Dulcolax oral ordered. Oxycodone increased to 10 mg every 6 hourly as needed. MRI lumbar spine and brain with and without contrast were ordered but patient could only have noncontrast study because of severe pain. Discussed with the spine surgeon and does not think any paraspinal abscess but will wait for official report. Lumbar spine reported newly developed moderate marrow edema throughout L4-L5 vertebral bodies with mild liquefaction within disc of L4-L5 and mild cortical erosions of the endplates finding consistent with vertebral osteomyelitis and discitis. Disc spaces also narrowed. No demonstrated paraspinal abscess or any more swelling. No visualized epidural fluid collection. Patient on IV antibiotics. ID is consulted. MRI brain shows involutional chronic changes but minges could not be evaluated because of no intravenous contrast was administered for reasons mentioned above. 10/23: CT lumbar spine was done which similarly shows osteomyelitis and discitis. ID requested CT-guided biopsy. 10/24: CT-guided lumbar biopsy by Dr Bradshaw. 3. Hypotonic isovolemic hyponatremia: Even though patient on IV fluid normal saline, serum sodium did not increase it remains 131. Will discontinue IV fluid. Patient might have SIADH after neurosurgery 10/22: Serum sodium is similar for last 3 days. 11/10: Sodium 126. 4. Hypokalemia: Admission K+ 3.2, magnesium level normal. Potassium replaced 10/20: Hypokalemia corrected. 10/23: Mild hypokalemia potassium corrected. B12 also low 177 therefore vitamin B12 ordered 10/24 potassium 3.1. On IV KCl replacement 5. Chronic asthma: Per current list not on inhalers,PRN albuterol, HOB, IS parameters. 6. CAD: Status post CABG x 3, continue aspirin, changed to high-dose statin. #7. Diabetes mellitus type II with chronic neuropathy: Hold oral home regimen, hemoglobin A1c 6.4, glucose controlled. Accu-Chek ACH cover with Humalog sliding scale. Continue patient home chronic gabapentin regimen. #8. Hyperlipidemia: Changing to high-dose statin regimen. LDL 123. HDL normal. #9. GERD: Will continue patient home PPI and sucralfate regimen. #10. BPH: We will continue patient on Flomax regimen. #11. Tobacco Abuse: Encouraged to tobacco cessation, inpatient consultation per RT, NR if desired. Patient usually uses 1 can every 3 to 4 days. #12. Restless leg syndrome: On a regimen, if necessary may add Requip #13. DVT prophylaxis: Lovenox. #14. CODE status: Patient ALLISON is his was present and living will is currently in place. Discussed CODE status at length including difference between FULL code, DNR-CCA and DNR-CC status. Following discussions about the differences in these status, requested Full Code status. Total time of the visit including total time spent in counseling or coordination of care, (more than 50% of the total time, spent in obtaining medical information from nurses and other ancillary care providers,explaining to the patient about labs, imaging, diagnosis and management of active complex medical conditions), complete history taking from patient's , discussion with [facility] neurologist and orthospine surgeon Dr. Walt Whitehead, review of labs and imaging is 40 minutes. Clinical Impression(s) from Imaging Studies Brain CT 10/21/23 17:19 IMPRESSION: Chronic age related changes and atrophy. No acute abnormality or significant change. Electronically Signed: Toribio Giraldo MD at 17:34 EST Reading Location ID and State: [facility] / [place] , Service support , ADDENDUM: 10/21/23 1746 IMPRESSION: Chronic age related changes and atrophy. No acute abnormality or significant change. N.B. : The above Results were Read Back by Toribio Giraldo MD to Kayli Granados DO, and understanding confirmed on 10/21/2023 17:39:16 (ET). Electronically Signed: Toribio Giraldo MD at 17:34 EST Reading Location ID and State: [facility] / [place] , Service support , Head/Neck CTA 10/21/23 17:19 IMPRESSION: No acute abnormality. No large vessel occlusions. 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 Electronically Signed: Toribio Giraldo MD at 17:49 EST Reading Location ID and State: [facility] / [place] , Service support , ADDENDUM: 10/21/23 1758 IMPRESSION: No acute abnormality. No large vessel occlusions. 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 N.B. : The above Results were Read Back by Toribio Giraldo MD to Kayli Granados DO, and understanding confirmed on 10/21/2023 17:51:20 (ET). Electronically Signed: Toribio Giraldo MD at 17:49 EST Reading Location ID and State: [facility] / [place] , Service support , Chest X-Ray 10/21/23 18:05 IMPRESSION: No definite acute or significant abnormality seen. Electronically Signed: Toribio Giraldo MD at 19:00 EST , Charges/Coding Visit Charges Inpatient E&M: 25268 Subs Hosp L2
[2023-10-25] MEDS: Folic Acid 1 MG Tablet PO (16:48)
[2023-10-25] MEDS: Aspirin E.C. 81 MG Tablet PO (16:50)
[2023-10-25] MEDS: Cyanocobalamin 500 MCG Tablet 1000 MCG PO (16:50)
[2023-10-25] MEDS: Thiamine Hydrochloride 100 MG Tablet PO (16:50)
[2023-10-25] MEDS: Enoxaparin 40 MG/0.4 ML Syringe SC (16:50)
[2023-10-25] MEDS: Sucralfate 1 GM Tablet PO ×2 (16:51→19:37)
[2023-10-25] MEDS: Pantoprazole Sodium 40 MG Tablet PO (16:51)
[2023-10-25] MEDS: Potassium Chloride 10mEq/100mL 10 MEQ/100 ML IV.SOLN. 100 MEQ IV BOLUS ×4 (17:05→20:50)
[2023-10-25 17:13] LABS: Bedside Glucose 100 mg/dL (74-106)
[2023-10-25] MEDS: RisperiDONE 0.5 MG Tablet PO (19:36)
[2023-10-25] MEDS: Atorvastatin Calcium 80 MG Tablet PO (19:36)
[2023-10-25] MEDS: Polyethylene Glycol 3350 17 GM PACKET PO (19:36)
[2023-10-25] MEDS: Tamsulosin HCl 0.4 MG Capsule 0.400000000000000022 MG PO (19:36)
[2023-10-25] MEDS: Acetaminophen 500 MG Tablet 1000 MG PO (19:36)
[2023-10-25] MEDS: Senna/Docusate Sodium 1 Tablet 2 TABLET PO (19:36)
--- NOTE | 2023-10-26 | BONBX_PTH ---
PATHOLOGY RESULTS PATIENT: JARET FIGUEROA LOC: [facility] U#:[id number] AGE/SX: 68/M ROOM: [facility] RE10/21/[address]: Dr. Vin Wheatley DO : 1955 BED: 1 DIS: 10/26/2023 SPEC #: [id number] RECD: 10/26/23 11:33 STATUS: CHYNA REQ #: [id number] ZANE: 10/26/23 00:[address]: Bjorn Bradshaw DEPT: SURGICAL PATHOLOGY RECD BY: Yolanda Montes De Oca ENTERED: 10/26/23 11:37 SP TYPE: Bone OTHR DR: MD Dr. Meliton Hobson MD Dr. Allison Jordan, DO Dr. Autumn L White, MD Dr. Alicia Zha, MD Dr. Deepak Gulati, MD Dr. Eric Jopperi, DO Dr. Gabriele Pedicelli, MD Dr. Hera Kamdar, MD Dr. Jan Bittar, MD Dr. James Burke, MD Dr. Loren Kirchner, MD Dr. Matthew Gusler, MD Dr. Maryam Mian, MD Dr. Marcus Newton, DO Dr. Mohamed Ridha, MD Dr. Mhd Ezzat Zaghlouleh, MD Dr. Prakash Chand, MD Dr. Peter Robinson, MD Dr. Robert Leininger, MD Dr. Sushil Lakhani, MD Dr. Vivien Lee, MD Tissues: Vertebra, NOS Vertebra, NOS Procedures: Decalcification bone/plaque Special Stain Group I Surgery Specimen Level IV Surgery Specimen Level V AFB Stain (control) GMS Stain (control) Comments: @ Ordering doctor for [facility] edited from to @ by NICK at 10/30/23 1453 @ Ordering doctor for SSI edited from to @ by MRQUINTON at 10/30/23 1453 @ Ordering doctor for SUIV edited from to @ by MRQUINTON at 10/30/23 1453 @ Ordering doctor for SUV edited from to @ by MRQUINTON at 10/30/23 1453 @ Ordering doctor for AFB edited from to @ by MRQUINTON at 10/30/23 1453 @ Ordering doctor for GMS edited from to @ by MRQUINTON at 10/30/23 1453 @ Submitting doctor edited from to DR.CBERRY Gerard by NICK at 10/30/23 1453 HEADER OPERATION: CT guided trans-pedicle biopsy and aspiration of L4-L5 PRE-OP DIAGNOSIS: L4/L5 discitis TISSUE SUBMITTED: A. Bone biopsy, B. Bone aspiration MICROSCOPIC DIAGNOSIS A. Bone biopsy; Fragments of bone with reactive changes. See comment. B. Bone marrow aspirate (cell block); Fragments of blood clots, no pathologic diagnosis. See comment. JAMES/ 10/27/2023 COMMENT A. Granulomas or significant inflammation are not seen. Special stains for acid fast bacilli and fungi are negative for organisms; matched controls are appropriate. B. Special stains for acid fast bacilli and fungi are negative for organisms; matched controls are appropriate. Result of culture study will be reported separately. Correlation with clinical findings and appropriate follow up are necessary. MICROSCOPIC DESCRIPTION Slides are reviewed. GROSS DESCRIPTION A. Received is one container labeled with the patient's name and not further designated. The specimen consists of multiple irregular fragments of bone that in aggregate measure 0.3x 0.3 x0.1 cm. The specimen is totally submitted in one cassette after decalcification. B. Received is in one container labeled with the patient's name and designated Bone marrow aspirate. The specimen consists of 4ml of blood submitted for cell block preparation. JAMSE/ TC:5 CPT: 02238,05071,97194,84721P3
[2023-10-26 04:00] VITALS: BP 141/73; PULSE 95; RESP 16; TEMP 36.8; O2SAT 98
[2023-10-26 04:18] VITALS: BMI 26.4
[2023-10-26] MEDS: Sucralfate 1 GM Tablet PO ×2 (06:05→10:58)
[2023-10-26] MEDS: Acetaminophen 500 MG Tablet 1000 MG PO ×2 (06:05→14:48)
[2023-10-26 06:19] LABS: Bedside Glucose 121 mg/dL (74-106)
[2023-10-26 06:36] LABS: Absolute Lymphocyte Count 1.15 X10^3/uL (0.83-4.51); Absolute Neutrophil Count 6.5 X10^3/uL (2.0-7.7); Basophil# 0.04 X10^3/uL; Basophil% 0.5 % (0-1); Eosinophil# 0.07 X10^3/uL; Eosinophils% 0.8 % (0-5); Hematocrit 36.6 % (40-54); Hemoglobin 12.4 g/dL (13.0-16.5); Lymphocyte # 1.15 X10^3/ul (0.83-4.51); Lymphocyte % 13.5 % (19-41); Mean Corp Hgb Conc 33.9 g/dL (32-36); Mean Corpuscular Volume 82.6 fL (80-94); Mean Platelet Vol. 7.9 fl (6.2-12.0); Monocyte# 0.75 X10^3/uL; Monocyte% 8.8 % (0-10); NRBC Flagged by Analyzer 0 % (0-5); Neutrophil % 75.9 % (47-70); Platelet Count 248 K/mm3 (150-450); RBC Distribution Width CV 13.3 % (11.6-14.6); RBC Distribution Width SD 39.8 fl (35.1-43.9); Red Blood Count 4.43 M/mm3 (4.6-6.2); White Blood Count 8.6 K/mm3 (4.4-11.0)
[2023-10-26 07:16] LABS: Anion Gap 9 (5-15); BUN 14 mg/dL (7-18); BUN/Creat Ratio 22.7 RATIO (10-20); Calcium,Total 8.7 mg/dL (8.5-10.1); Chloride 99 mmol/L (98-107); Creatinine, Serum 0.62 mg/dL (0.70-1.30); EST Glomerular Filtration Rate 137 mL/min (>60); Est Glom Filt Rate - Afr Amer 166 mL/min (>60); Estimated Creatinine Clearance 88.72 ml/min; Glucose 119 mg/dL (74-106); Potassium 3.6 mmol/L (3.5-5.1); Sodium Level 131 mmol/L (136-145)
[2023-10-26 07:21] LABS: Phosphorus 2.7 mg/dL (2.5-4.9)
[2023-10-26 08:30] VITALS: BP 107/82; PULSE 95; RESP 18; TEMP 36.4; O2SAT 93
[2023-10-26] MEDS: Vancomycin HCl 2,000 MG in 0.9% Normal Saline (500mL Bag) 500 ML 250 MG IV (08:33)
[2023-10-26] MEDS: Enoxaparin 40 MG/0.4 ML Syringe SC (08:33)
[2023-10-26] MEDS: 0.9% Saline Lock 10 ML Syringe IV (08:33)
[2023-10-26] MEDS: RisperiDONE 0.5 MG Tablet PO (08:34)
[2023-10-26] MEDS: Thiamine Hydrochloride 100 MG Tablet PO (08:34)
[2023-10-26] MEDS: Aspirin E.C. 81 MG Tablet PO (08:34)
[2023-10-26] MEDS: Polyethylene Glycol 3350 17 GM PACKET PO (08:34)
[2023-10-26] MEDS: Cyanocobalamin 500 MCG Tablet 1000 MCG PO (08:34)
[2023-10-26] MEDS: Senna/Docusate Sodium 1 Tablet 2 TABLET PO (08:34)
[2023-10-26] MEDS: Pantoprazole Sodium 40 MG Tablet PO (08:34)
[2023-10-26] MEDS: Folic Acid 1 MG Tablet PO (08:34)
[2023-10-26 08:35] VITALS: O2SAT 93
[2023-10-26] MEDS: oxyCODONE 5 MG Tablet PO ×2 (08:43→14:49)
--- NOTE | 2023-10-26 09:14 | PN.HOSP_ITS ---
Reason for Visit Reason for Visit: Diagnoses Cerebral infarction, unspecified (10/21/23) Discitis, unspecified, lumbar region (10/21/23) Altered mental status, unspecified (10/21/23) Other specified postprocedural states (10/21/23) Subjective Subjective Still with back pain. Anxious to go home. Objective Data Objective Data Vital Signs: Vital Signs Temp Pulse Resp BP Pulse Ox O2 Del Method 36.4 C L 95 18 107/82 H 93 Room Air 10/26/23 08:30 10/26/23 08:30 10/26/23 08:30 10/26/23 08:30 10/26/23 08:35 10/26/23 08:35 Oxygen Delivery Method Room Air Weight: 83.6 kg Body Mass Index (BMI) 26.4 Intake & Output: Intake and Output for Last 24 Hours 10/24/23 10/25/23 10/26/23 23:59 23:59 23:59 Intake Total 1785 / 1785 1775 / 2655 1120 / 1120 Output Total 2500 / 2500 1200 / 1200 Balance -715 / -715 1775 / 1855 -80 / -80 Medical Nutrition Assessment Dietitian: Malnutrition Criteria Met Start: 10/22/23 17:13 Freq: Status: Active Protocol: Document 10/22/23 17:14 RMA (Rec: 10/22/23 17:14 RMA [id number]) Nutrition Malnutrition Evidence of Malnutrition Exists Yes Malnutrition (severe): Chronic Evidenced By Suboptimal Energy Intake ( Severe),Weight Loss (Severe) Clinical Problem Chronic Disease or Condition Related Malnutrition Etiology severe protein-calorie malnutrition in the context of chronic disease related to inadequate oral/ennergy intake Signs/Symptoms as evidenced by ~6-7% unintentional weight loss x past 1 month and PO meeting less than 50% estimated nutrition needs x 1-2 months Status Active Problem Recommendation Dietitian Recommendations/Changes Will adjust diet to 2000 calorie/consistent carbohydrate; cardiac. Will add 120ml glucerna shake 4 times per day w/ medpass. Will add 240mL glucerna shake w/ breakfast tray. Adjust ONS as need to optimize PO and prevent further weight loss. Lab / Micro Data 10/26/23 06:27 10/26/23 06:27 Labs: Laboratory Results - last 24 hr 10/24/23 16:48: POC Glucose 132 H 10/25/23 07:30: PT 13.6, INR 1.0, Hemoglobin A1c 6.2 H 10/25/23 16:55: POC Glucose 100 10/26/23 06:02: POC Glucose 121 H 10/26/23 06:27: WBC 8.6, RBC 4.43 L, Hgb 12.4 L, Hct 36.6 L, MCV 82.6, MCH 28.0, MCHC 33.9, RDW Std Deviation 39.8, RDW Coeff of Frankie 13.3, Plt Count 248, MPV 7.9, Immature Gran % (Auto) 0.500, Neut % (Auto) 75.9 H, Lymph % (Auto) 13.5 L, [place] % (Auto) 8.8, Eos % (Auto) 0.8, Baso % (Auto) 0.5, Absolute Neuts (auto) 6.5, Absolute Lymphs (auto) 1.15, Nucleated RBC % 0, Sodium 131 L, Potassium 3.6, Chloride 99, Carbon Dioxide 23.0, Anion Gap 9, BUN 14, Creatinine 0.62 L, Estim Creat Clear Calc 88.72, Est GFR (MDRD) Af Amer 166, Est GFR (MDRD) Non-Af 137, BUN/Creatinine Ratio 22.7 H, Glucose 119 H, Calcium 8.7, Phosphorus 2.7 Micro: Microbiology 10/22/23 07:29 Blood Culture (Wb) - Right Hand Blood Culture - Preliminary No growth in 48 hours. 10/22/23 07:19 Blood Culture (Wb) - Anticubital Right Blood Culture - Preliminary No growth in 48 hours. 10/22/23 01:13 Mucosa - Nasopharyngeal Coronavirus COVID-19 PCR - Final 10/22/23 01:13 Mucosa - Nasopharyngeal Respiratory Panel (PCR) - Final Radiography Diagnostic Testing: Radiology Impression Biopsy CT 10/25/23 08:27 IMPRESSION: Successful CT guided left transpedicular approach aspiration of the L4-L5 disc space level, as described above. Conscious sedation protocol was followed. Electronically Signed: Jaspreet Armstrong MD at 14:09 EDT , Physical Exam Const alert and no apparent distress Constitutional Narrative: up in bed. HEENT head/scalp atraumatic Neuro Sensorium / Orientation: awake and alert Assessment & Plan Assessment/Plan (1) Discitis of lumbar region: PLAN: Plan Acute toxic and metabolic encephalopathy * resolved 2/2 percocet and OM/diskitis. Patient currently is awake and alert and in severe back pain with stiffness therefore oxycodone resumed. Patient was evaluated by neurologist and does not think patient to clinical he had a stroke but probably postop infection/complication as mentioned below. * CT head and CTA head and neck does not show acute abnormality or LVO. Discontinue Plavix. Vertebral Osteomyelitis and diskitis * recurrent disc herniation status post repeat laminectomy L4-5 on the left with discectomy and decompression of L5 nerve root with with vertebral osteomyelitis and discitis of L4-L5: Patient had back surgery as mentioned above on 07/18/2023. * MRI 10/22: newly developed moderate marrow edema through the L4 and L5 vertebral bodies. Also interval development of mild liquefaction wi the disc at L4/5. * 10/24: CT-guided lumbar biopsy by Dr Bradshaw. * ID recommending 6-weeks of vanc and CTX. PICC placed. Chronic conditions: * Chronic asthma: Per current list not on inhalers,PRN albuterol, HOB, IS parameters. * CAD: Status post CABG x 3, continue aspirin, changed to high-dose statin. * Diabetes mellitus type II with chronic neuropathy: Hold oral home regimen, hemoglobin A1c 6.4, glucose controlled. Accu-Chek ACH cover with Humalog sliding scale. Continue patient home chronic gabapentin regimen. * Hyperlipidemia: Changing to high-dose statin regimen. LDL 123. HDL normal. * GERD: Will continue patient home PPI and sucralfate regimen. * BPH: We will continue patient on Flomax regimen. * tobacco Abuse: Encouraged to tobacco cessation, inpatient consultation per RT, NR if desired. Patient usually uses 1 can every 3 to 4 days. * Restless leg syndrome: On a regimen, if necessary may add Requip DVT prophylaxis: Lovenox. Full code. Discharge home today with home care to assume responsibilities in AM. Pt will miss his evening dose. ID aware and is ok with missing this evening's dose.
--- NOTE | 2023-10-26 10:30 | CASEMGMT ---
Addendum entered by María Elena Feng 10/26/23 16:43: Noted that d/c instructions are included in the d/c summary and this has been sent to [facility]. Addendum entered by María Elena Feng 10/26/23 16:42: Discharge summary sent to [facility] via [facility]. Discharge instructions are not available yet. Green sheet left on pt's chart w/instructions for discharge instructions to be faxed to [facility] when available. Addendum entered by María Elena Feng 10/26/23 15:08: PICC documentation sent to [facility] via Careport. Dr Wheatley states pt will discharge home today. Call to [facility] who checked referral in [facility] and states all documentation needed has been received. She verifies meds/supplies will be delivered to pt's home by the end of the day (anywhere b/w 8-10 PM). Call to [facility]. She was made aware pt is discharging home today and that Dr Wilkinson approved for pt to not receive this PM dose of Vancomycin. She states SOC will be tomorrow AM @ 8 AM. MATIAS SAUER to room. Pt and made aware of above. Questions answered. They deny having any further discharge planning needs or concerns. Addendum entered by María Elena Feng 10/26/23 14:33: Per Arabella Gerard [facility], pt's max Out of pocket is $5,500 and pt has met only $500. She states ceftriaxone cost per week is $24.93 and vanco per week is $44, for total of ~ $379.12 for about 5.5 weeks. They will need this co-pay amt up-front and the rest (supplies) will be billed through pt's insurance, which will be covered @ 80% and pt will be responsible for 20%. MATAIS SAUER to room. Pt and made aware and state this is affordable to them and pt would like to discharge home w/[facility]. Call to [facility] and referral made. She states they could either do SOC tomorrow morning, or Monday morning, but no SOC available tomorrow PM. IV atb scripts faxed to [facility] at this time. Per Arabella Gerard [facility], they could deliver atb's to pt's home this PM as long as all documentation is received by them by [address]. [address] Wilkinson, it would be okay for pt to not receive tonight's PM dose of Vancomycin. Dr Wheatley made aware and that HHC able to do SOC tomorrow AM, if pt discharges home today. Denisha, discharge strategic planning analyst to send referral info to [facility] via [facility]port. PICC being inserted at this time. Will send PICC documentation to [facility] when available. Original Note: MATIAS SAUER NOTE: Per Dr Wilkinson, PICC has been ordered and pt to discharge on IV ceftriaxone 2 gm Q 24 hrs and IV vancomycin 1,000 mg Q 12 hrs. Scripts received for both. MATIAS CM to room to discuss discharge planning w/pt and his . Pt sitting up in chair. @ bedside. Pt is oriented at this time/no confusion noted and answers all questions appropriately. Discussed options of HHC vs SNF and many questions answered. Pt and voice understanding. Pt states he does prefer to discharge home w/C, if affordable, and agreeable to whatever decision pt makes. They would like to have financials ran to determine [id number] cost of IV atb's if he goes home w/[facility]. They do not have a preference of infusion company and states are okay w/[facility]. They are aware HHC nurse would only come to his home weekly and pt/ would be responsible for IV admin. Pt states he is teachable and willing to learn and states she is as well, although was a little hesitant at first. Pt and state, if he goes home w/HHC, they [facility] and decline wanting list of other HHC options unless [facility] unable to accept. Scripts sent to [facility] via [employer] and asked for financial determination. Awaiting response. Scotty RUSHING RN CM
--- NOTE | 2023-10-26 10:33 | PN.ID_ITS ---
Physical Exam Narrative Feeling much better, no fever, no n/v/d. Const alert and no apparent distress Resp normal air movement and clear to auscultation bilaterally Cardio regular rate and regular rhythm GI soft to palpation, non-tender and non-distended Skin no rashes or lesions noted ID ID: Route of nutrition/ use of supplements: [] Nutritional Intake: [] IV Site: [] Gan Catheter: [] Assessment & Plan Assessment/Plan (1) Altered mental status: (2) S/P laminectomy: (3) Discitis of lumbar region: PLAN: Had lumbar laminectomy and discectomy L4-5 on 07/18/[address] Godoy here. Since then, progressive pain, new fever and confusion. Bcx ngtd. Low suspicion for meningitis at this point. MRI shows suspected discitis/osteo. At risk for nosocomial organisms. No epidural abscess seen. 10/25/23 had aspiration of disc/bone with orosco culture sent. No organism seen on gram stain. Cont empiric vanc/ceftriaxone. Feeling better. Will order picc, 6 weeks iv vanc/ceftriaxone with stop date 12/03/23 with weekly labs and ID followup in 2 weeks. Wrote rx, d/w residential case manager Will follow
[2023-10-26] MEDS: Insulin Lispro 100 UNIT/ML INSULN.PEN SC (10:58)
[2023-10-26] MEDS: Ceftriaxone 2 GM in 0.9% Normal Saline (50mL MB+) 50 ML IV (11:34)
[2023-10-26] MEDS: Baclofen 10 MG Tablet PO (11:34)
[2023-10-26 11:36] LABS: Bedside Glucose 180 mg/dL (74-106)
--- NOTE | 2023-10-26 13:00 | PCM.PN.ORT ---
Subjective Subjective Mr. Bates is seen on rounds. Today he was in the company of his . We discussed the findings so far. He is due to get his PICC line today. Should I guess that he will probably be going home by tomorrow if Dr. Wilkinson can get everything set up for his home. So far nothing from the pathology after Dr. Bradshaw's biopsy done yesterday. I suspect it will be at least tomorrow before we hear anything. The Gram stain did not show anything. I told Mr. Bates and his that I would like to visit with him in my office in about 3 weeks. Will probably be on the antibiotics at least a 6 weeks total or perhaps even 8 weeks. Progress so far is good. I will see him in the office. Objective Data Objective Data Vital Signs: Vital Signs Temp Pulse Resp BP Pulse Ox O2 Del Method 97.6 F L 95 18 107/82 H 93 Room Air 10/26/23 08:30 10/26/23 08:30 10/26/23 08:30 10/26/23 08:30 10/26/23 08:35 10/26/23 08:35 Oxygen Delivery Method Room Air Weight: 184 lb 4.903 oz Body Mass Index (BMI) 26.4 Intake & Output: Intake and Output for Last 24 Hours 10/24/23 10/25/23 10/26/23 23:59 23:59 23:59 Intake Total 1785 / 1785 1775 / 2655 2070 / 2070 Output Total 2500 / 2500 1650 / 1650 Balance -715 / -715 1775 / 1855 420 / 420 Medical Nutrition Assessment Dietitian: Malnutrition Criteria Met Start: 10/22/23 17:13 Freq: Status: Active Protocol: Document 10/22/23 17:14 RMA (Rec: 10/22/23 17:14 RMA [id number]) Nutrition Malnutrition Evidence of Malnutrition Exists Yes Malnutrition (severe): Chronic Evidenced By Suboptimal Energy Intake ( Severe),Weight Loss (Severe) Clinical Problem Chronic Disease or Condition Related Malnutrition Etiology severe protein-calorie malnutrition in the context of chronic disease related to inadequate oral/ennergy intake Signs/Symptoms as evidenced by ~6-7% unintentional weight loss x past 1 month and PO meeting less than 50% estimated nutrition needs x 1-2 months Status Active Problem Recommendation Dietitian Recommendations/Changes Will adjust diet to 2000 calorie/consistent carbohydrate; cardiac. Will add 120ml glucerna shake 4 times per day w/ medpass. Will add 240mL glucerna shake w/ breakfast tray. Adjust ONS as need to optimize PO and prevent further weight loss. Lab / Micro Data 10/26/23 06:27 10/26/23 06:27 Labs: Laboratory Results - last 24 hr 10/25/23 16:55: POC Glucose 100 10/26/23 06:02: POC Glucose 121 H 10/26/23 06:27: WBC 8.6, RBC 4.43 L, Hgb 12.4 L, Hct 36.6 L, MCV 82.6, MCH 28.0, MCHC 33.9, RDW Std Deviation 39.8, RDW Coeff of Frankie 13.3, Plt Count 248, MPV 7.9, Immature Gran % (Auto) 0.500, Neut % (Auto) 75.9 H, Lymph % (Auto) 13.5 L, [place] % (Auto) 8.8, Eos % (Auto) 0.8, Baso % (Auto) 0.5, Absolute Neuts (auto) 6.5, Absolute Lymphs (auto) 1.15, Nucleated RBC % 0, Sodium 131 L, Potassium 3.6, Chloride 99, Carbon Dioxide 23.0, Anion Gap 9, BUN 14, Creatinine 0.62 L, Estim Creat Clear Calc 88.72, Est GFR (MDRD) Af Amer 166, Est GFR (MDRD) Non-Af 137, BUN/Creatinine Ratio 22.7 H, Glucose 119 H, Calcium 8.7, Phosphorus 2.7 10/26/23 10:57: POC Glucose 180 H Micro: Microbiology 10/25/23 13:20 Fluid - Bone Marrow Gram Stain - Final 10/22/23 07:29 Blood Culture (Wb) - Right Hand Blood Culture - Preliminary No growth in 48 hours. 10/22/23 07:19 Blood Culture (Wb) - Anticubital Right Blood Culture - Preliminary No growth in 48 hours. 10/22/23 01:13 Mucosa - Nasopharyngeal Coronavirus COVID-19 PCR - Final 10/22/23 01:13 Mucosa - Nasopharyngeal Respiratory Panel (PCR) - Final Radiography Diagnostic Testing: Radiology Impression Biopsy CT 10/25/23 08:27 IMPRESSION: Successful CT guided left transpedicular approach aspiration of the L4-L5 disc space level, as described above. Conscious sedation protocol was followed. Electronically Signed: Jaspreet Armstrong MD at 14:09 EDT ,
[2023-10-26 14:45] VITALS: BP 109/67; PULSE 96; RESP 18; TEMP 36.7; O2SAT 97
--- NOTE | 2023-10-26 15:13 | DS.PCM_ITS ---
Providers Date of Admission: 10/21/23 Primary Care Physician: Dr. Marlen Bear MD Consultations 10/21/23 20:32 Consult: Tele-Neurology Routine Consulting Provider: [facility] Reason for Consult: Acute Ischemic Stroke/TIA EMERGENT Consult: No Notified: Yes Date Notified: 10/22/23 Time Notified: 06:06 Method of Notification: Answering Service Comments:: will be seen by Dr Sanchez Nursing Unit Staff Notify [facility] of Tele-Neurology Consult: Yes 10/22/23 13:48 Consult: Infectious Disease Routine Consulting Provider: Tarik Wilkinson Reason for Consult: Suspected Lumbar post op infection/meningeal encephalitis EMERGENT Consult: No Notified: Yes Date Notified: 10/22/23 Time Notified: 13:51 Method of Notification: Text Consult: Orthopedics Routine Consulting Provider: Ventura Godoy Reason for Consult: suspected post op infection EMERGENT Consult: No MD Notified: Yes Date Notified: 10/22/23 Time Notified: 13:48 Method of Notification: Verbal 10/25/23 08:28 Consult: Interventional Radiology Routine Consulting Provider: Jaspreet Armstrong Reason for Consult: Bone Biopsy EMERGENT Consult: No MD Notified: Yes Date Notified: 10/25/23 Time Notified: 08:28 Method of Notification: per Reason For Visit: CVA Diagnosis Discharge Diagnosis (1) Discitis of lumbar region: Status: Acute Code(s): M46.46 - Discitis, unspecified, lumbar region Plan Acute toxic and metabolic encephalopathy * resolved 2/2 percocet and OM/diskitis. Patient currently is awake and alert and in severe back pain with stiffness therefore oxycodone resumed. Patient was evaluated by neurologist and does not think patient to clinical he had a stroke but probably postop infection/complication as mentioned below. * CT head and CTA head and neck does not show acute abnormality or LVO. Discontinue Plavix. Vertebral Osteomyelitis and diskitis * recurrent disc herniation status post repeat laminectomy L4-5 on the left with discectomy and decompression of L5 nerve root with with vertebral osteomyelitis and discitis of L4-L5: Patient had back surgery as mentioned above on 07/18/2023. * MRI 10/22: newly developed moderate marrow edema through the L4 and L5 vertebral bodies. Also interval development of mild liquefaction wi the disc at L4/5. * 10/24: CT-guided lumbar biopsy by Dr Bradshaw. * ID recommending 6-weeks of vanc and CTX. PICC placed. Chronic conditions: * Chronic asthma: Per current list not on inhalers,PRN albuterol, HOB, IS parameters. * CAD: Status post CABG x 3, continue aspirin, changed to high-dose statin. * Diabetes mellitus type II with chronic neuropathy: Hold oral home regimen, hemoglobin A1c 6.4, glucose controlled. Accu-Chek ACH cover with Humalog sliding scale. Continue patient home chronic gabapentin regimen. * Hyperlipidemia: Changing to high-dose statin regimen. LDL 123. HDL normal. * GERD: Will continue patient home PPI and sucralfate regimen. * BPH: We will continue patient on Flomax regimen. * tobacco Abuse: Encouraged to tobacco cessation, inpatient consultation per RT, NR if desired. Patient usually uses 1 can every 3 to 4 days. * Restless leg syndrome: On a regimen, if necessary may add Requip DVT prophylaxis: Lovenox. Full code. Discharge home today with home care to assume responsibilities in AM. Pt will miss his evening dose. ID aware and is ok with missing this evening's dose. Medications at Discharge Home Medications aspirin 81 mg tablet,delayed release 81 mg PO DAILY HEART HEALTH 12/23/15 multivitamin 1 tab PO DAILY supplement 07/09/19 baclofen 10 mg tablet 10 mg PO TID PRN PRN Muscle Spasm 05/14/20 gabapentin 100 mg capsule 200 mg PO TID neuropathy 05/14/20 naproxen sodium 220 mg capsule (Aleve) 220 mg PO BID PRN Pain 02/04/22 albuterol sulfate 90 mcg/actuation aerosol inhaler 1 - 2 puff inhalation Q4H PRN PRN Wheezing #8.5 grams 04/21/22 handicap placard #1 ea 04/21/22 blood sugar diagnostic (FreeStyle Lite Strips) #100 ea 09/15/22 blood-glucose meter (FreeStyle Lite Meter kit) #1 ea 09/15/22 fluticasone propionate 50 mcg/actuation nasal spray,suspension 1 - 2 spray intranasal BID PRN allergies, congestion #16 grams 04/27/23 metformin 500 mg tablet 500 mg PO BID DIABETES #180 tabs 04/27/23 linaclotide 72 mcg capsule 72 mcg PO DAILY IBS #90 caps 06/27/23 acetaminophen 500 mg capsule 1,000 mg PO Q6H PRN pain 07/18/23 atorvastatin 40 mg tablet 40 mg PO QHS CHOLESTEROL #90 tabs 08/21/23 medical marijuana card PO unknown 08/21/23 omeprazole 40 mg capsule,delayed release 40 mg PO DAILY PRN Reflux #30 caps 08/21/23 trazodone 50 mg tablet 50 - 100 mg (1 - 2 x 50 mg) PO QHS sleep #90 tabs sucralfate 1 gram tablet (Carafate) 1 g PO QACHS #30 tabs 09/27/23 metoclopramide HCl 10 mg tablet (Reglan) 10 mg PO Q8H PRN PRN nausea and vomiting #14 tabs 10/01/23 ondansetron 4 mg disintegrating tablet 4 mg PO Q6H PRN nausea and vomiting #20 tabs 10/03/23 oxycodone 5 mg tablet 7.5 mg PO TID PRN PRN pain 10/21/23 tamsulosin 0.4 mg capsule 0.4 mg PO QHS PRN urinary retention 10/21/23 ceftriaxone 2 gram intravenous solution 2 g IV Q24H 38 days 10/26/23 vancomycin 1,000 mg intravenous injection 2 g IV Q12H 38 days #76 ea 10/26/23 Hospital Course Operations None Procedures - (CT-guided lumbar biopsy. ) Summary of Care Provided Minutes Spent on Discharge: 32 Hospital Course: Patient present confused. Concerns for stroke but MRI showed chronic changes. Patient was found to be confused likely due to narcotics and as well as another medication clued baclofen and gabapentin and the fact that he had newly diagnos ed osteomyelitis and discitis of the L4-L5 region. Patient did undergo a biopsy of the L4-L5 region results are pending. Patient will be discharged with a 6- week course of antibiotics with vancomycin and ceftriaxone. Patient was seen in consultation by spine surgery, neurology and infectious disease. Medical Records Data Medical Nutrition Assessment Dietitian: Malnutrition Criteria Met Start: 10/22/23 1 7:13 Freq: Status: Active Protocol: Document 10/22/23 17:14 RMA (Rec: 10/22/23 17:14 RMA [id number]) Nutrition Malnutrition Evidence of Malnutrition Exists Yes Malnutrition (severe): Chronic Evidenced By Suboptimal Energy Intake ( Severe),Weight Loss (Severe) Clinical Problem Chronic Disease or Condition Related Malnutrition Etiology severe protein-calorie malnutrition in the context of chronic disease related to inadequate oral/ennergy intake Signs/Symptoms as evidenced by ~6-7% unintentional weight loss x past 1 month and PO meeting less than 50% estimated nutrition needs x 1-2 months Status Active Problem Recommendation Dietitian Recommendations/Changes Will adjust diet to 2000 calorie/consistent carbohydrate; cardiac. Will add 120ml glucerna shake 4 times per day w/ medpass. Will add 240mL glucerna shake w/ breakfast tray. Adjust ONS as need to optimize PO and prevent further weight loss. Weight / BMI Weight Weight: 83.6 kg Body Mass Index (BMI) 26.4 ABG / Lab / Microbiology Data 10/26/23 06:27 10/26/23 06:27 Laboratory: Laboratory Results - last 24 hr 10/25/23 16:55: POC Glucose 100 10/26/23 06:02: POC Glucose 121 H 10/26/23 06:27: WBC 8.6, RBC 4.43 L, Hgb 12.4 L, Hct 36.6 L, MCV 82.6, MCH 28.0, MCHC 33.9, RDW Std Deviation 39.8, RDW Coeff of Frankie 13.3, Plt Count 248, MPV 7.9, Immature Gran % (Auto) 0.500, Neut % (Auto) 75.9 H, Lymph % (Auto) 13.5 L, [place] % (Auto) 8.8, Eos % (Auto) 0.8, Baso % (Auto) 0.5, Absolute Neuts (auto) 6 .5, Absolute Lymphs (auto) 1.15, Nucleated RBC % 0, Sodium 131 L, Potassium 3.6, Chloride 99, Carbon Dioxide 23.0, Anion Gap 9, BUN 14, Creatinine 0.62 L, Estim Creat Clear Calc 88.72, Est GFR (MDRD) Af Amer 166, Est GFR (MDRD) Non-Af 137, BUN/Creatinine Ratio 22.7 H, Glucose 119 H, Calcium 8.7, Phosphorus 2.7 10/26/23 10:57: POC Glucose 180 H Microbiology: Microbiology 10/25/23 13:20 Fluid - Bone Marrow Gram Stain - Final 10/22/23 07:29 Blood Culture (Wb) - Right Hand Blood Culture - Preliminary No growth in 48 hours. 10/22/23 07:19 Blood Culture (Wb) - Anticubital Right Blood Culture - Preliminary No growth in 48 hours. 10/22/23 01:13 Mucosa - Nasopharyngeal Coronavirus COVID-19 PCR - Final 10/22/23 01:13 Mucosa - Nasopharyngeal Respiratory Panel (PCR) - Final Radiography Diagnostic Testing: Radiology Impression Biopsy CT 10/25/23 08:27 IMPRESSION: Successful CT guided left transpedicular approach aspiration of the L4-L5 disc space level, as described above. Conscious sedation protocol was followed. Electronically Signed: Jaspreet Armstrong MD at 14:09 EDT , Meaningful Use Info Meaningful Use Diagnoses (Choose all that apply): None applicable Discharge Plan Admission Admit Date/Time: 10/21/23 19:32 Primary Reason for Your Visit: Lumbar osteomyelitis and diskitis. Attending Provider: Vin Wheatley Primary Care Provider: Marlen Bear Consulting Providers: Sara Reaves; Tarik Wilkinson; Ventura Godoy; Jaspreet Armstrong; Ochoa Figueroa Discharge Orders/Prescriptions Prescriptions: New ceftriaxone 2 gram recon soln 2 g IV Q24H 38 Days Rx Instructions: stop date 12/03/23. Dx: spine osteomyelitis. Weekly bmp, cbc, ESR, and vanc trough; fax to [phone]. Routine picc care per protocol. vancomycin 1,000 mg recon soln 2 g IV Q12H 38 Days Qty: 76 0RF Rx Instructions: stop date 12/03/23. Dx: spine osteomyelitis. Weekly bmp, cbc, ESR, and vanc trough; fax to [phone]. Routine picc care per protocol. Continued multivitamin Tablet 1 tab PO DAILY naproxen sodium [Aleve] 220 mg capsule 220 mg PO BID PRN (Reason: Pain) medical marijuana card PO aspirin 81 MG tablet,delayed release (DR/EC) 81 mg PO DAILY baclofen 10 MG tablet 10 mg PO TID PRN PRN (Reason: Muscle Spasm) gabapentin 100 MG capsule 200 mg PO TID acetaminophen 500 mg capsule 1,000 mg PO Q6H PRN (Reason: pain) metoclopramide HCl [Reglan] 10 mg tablet 10 mg PO Q8H PRN PRN (Reason: nausea and vomiting) Qty: 14 0RF oxycodone 5 mg tablet 7.5 mg PO TID PRN PRN (Reason: pain) tamsulosin 0.4 mg capsule 0.4 mg PO QHS PRN (Reason: urinary retention) albuterol sulfate 90 mcg/actuation HFA aerosol inhaler 1 - 2 puff INHALATION Q4H PRN PRN (Reason: Wheezing) Qty: 8.5 3RF fluticasone propionate 50 mcg/actuation spray,suspension 1 - 2 spray intranasal BID PRN (Reason: allergies, congestion) Qty: 16 3RF Rx Instructions: administer into each nostril; 2 sprays in each nostril for the first week metformin 500 mg tablet 500 mg PO BID Qty: 180 3RF linaclotide 72 mcg capsule 72 mcg PO DAILY Qty: 90 3RF atorvastatin 40 mg tablet 40 mg PO QHS Qty: 90 3RF Hold Instructions: 10/01/21- Myalgia and sleep issues omeprazole 40 mg capsule,delayed release(DR/EC) 40 mg PO DAILY PRN (Reason: Reflux) Qty: 30 1RF trazodone 50 mg tablet 50 - 100 mg PO QHS Qty: 90 3RF sucralfate [Carafate] 1 gram tablet 1 g PO QACHS Qty: 30 0RF ondansetron 4 mg tablet,disintegrating 4 mg PO Q6H PRN (Reason: nausea and vomiting) Qty: 20 0RF No Action (DME) handicap placard See Rx Instructions .Route .MEDSUPPLY Qty: 1 0RF Rx Instructions: fatique , pain in right knee , oteoarathritis (DME) FreeStyle Lite Strips Strip See Rx Instructions .Route Qty: 100 3RF Rx Instructions: Twice daily (DME) blood-glucose meter [FreeStyle Lite Meter] Kit See Rx Instructions .Route Qty: 1 0RF Rx Instructions: Test twice daily Referrals / Follow Up: Marlen Bear MD [Primary Care Provider] - Within 2 Weeks Ventura Godoy DO [Med Staff - Active Staff] - Within 2 Weeks Tarik Wilkinson MD [Med Staff - Active Staff] - Within 2 Weeks Disposition Disposition (needs filled in before D/C Order can be placed): Home Health Servic e Charges/Coding Visit Charges Inpatient E&M: 44089 Disch Hosp >30min
--- NOTE | 2023-10-26 15:50 | PHA.DC.MR.R ---
Pharmacy [place] Med Reconciliation Pharmacy Service has performed discharge medication reconciliation for this patient. The patient's discharge medication list was reviewed for discrepancies and discrepancies were resolved. Medications at Discharge Home Medications aspirin 81 mg tablet,delayed release 81 mg PO DAILY HEART HEALTH 12/23/15 multivitamin 1 tab PO DAILY supplement 07/09/19 baclofen 10 mg tablet 10 mg PO TID PRN PRN Muscle Spasm 05/14/20 gabapentin 100 mg capsule 200 mg PO TID neuropathy 05/14/20 naproxen sodium 220 mg capsule (Aleve) 220 mg PO BID PRN Pain 02/04/22 albuterol sulfate 90 mcg/actuation aerosol inhaler 1 - 2 puff inhalation Q4H PRN PRN Wheezing #8.5 grams 04/21/22 handicap placard #1 ea 04/21/22 blood sugar diagnostic (FreeStyle Lite Strips) #100 ea 09/15/22 blood-glucose meter (FreeStyle Lite Meter kit) #1 ea 09/15/22 fluticasone propionate 50 mcg/actuation nasal spray,suspension 1 - 2 spray intranasal BID PRN allergies, congestion #16 grams 04/27/23 metformin 500 mg tablet 500 mg PO BID DIABETES #180 tabs 04/27/23 linaclotide 72 mcg capsule 72 mcg PO DAILY IBS #90 caps 06/27/23 acetaminophen 500 mg capsule 1,000 mg PO Q6H PRN pain 07/18/23 atorvastatin 40 mg tablet 40 mg PO QHS CHOLESTEROL #90 tabs 08/21/23 medical marijuana card PO unknown 08/21/23 omeprazole 40 mg capsule,delayed release 40 mg PO DAILY PRN Reflux #30 caps 08/21/23 trazodone 50 mg tablet 50 - 100 mg (1 - 2 x 50 mg) PO QHS sleep #90 tabs 08/21/23 sucralfate 1 gram tablet (Carafate) 1 g PO QACHS #30 tabs 09/27/23 metoclopramide HCl 10 mg tablet (Reglan) 10 mg PO Q8H PRN PRN nausea and vomiting #14 tabs 10/01/23 ondansetron 4 mg disintegrating tablet 4 mg PO Q6H PRN nausea and vomiting #20 tabs 10/03/23 oxycodone 5 mg tablet 7.5 mg PO TID PRN PRN pain 10/21/23 tamsulosin 0.4 mg capsule 0.4 mg PO QHS PRN urinary retention 10/21/23 ceftriaxone 2 gram intravenous solution 2 g IV Q24H 38 days 10/26/23 vancomycin 1,000 mg intravenous injection 2 g IV Q12H 38 days #76 ea 10/26/23
[2023-10-26 17:06] VITALS: BMI 26.4
[2023-10-26 17:19] LABS: Bedside Glucose 170 mg/dL (74-106)
== END 2023-10-26 17:12 | disposition home health service (06) | DRG 539 ==
LOC: ED 19:07 → PCU 19:41
PROVIDERS: Anesthesiology; Internal Medicine; Internal Medicine Infectious Disease; Nurse Practitioner Acute Care; Orthopaedic Surgery; Admitting Provider Family Medicine; Emergency Provider Emergency Medicine; PCP Internal Medicine
DX: M46.26 Osteomyelitis of vertebra, lumbar region (principal); G92.8 Other toxic encephalopathy; E43 Unspecified severe protein-calorie malnutrition; R47.01 Aphasia; E87.1 Hypo-osmolality and hyponatremia; E11.40 Type 2 diabetes mellitus with diabetic neuropathy, unspecified; J45.909 Unspecified asthma, uncomplicated; G25.81 Restless legs syndrome; F17.220 Nicotine dependence, chewing tobacco, uncomplicated; E87.6 Hypokalemia; I25.10 Atherosclerotic heart disease of native coronary artery without angina pectoris; E78.5 Hyperlipidemia, unspecified; M47.819 Spondylosis without myelopathy or radiculopathy, site unspecified; K21.9 Gastro-esophageal reflux disease without esophagitis; Z79.82 Long term (current) use of aspirin; Z86.16 Personal history of COVID-19; R29.702 NIHSS score 2; Z79.1 Long term (current) use of non-steroidal anti-inflammatories (NSAID); Z79.84 Long term (current) use of oral hypoglycemic drugs; Z79.891 Long term (current) use of opiate analgesic; R41.82 Altered mental status, unspecified; Z95.1 Presence of aortocoronary bypass graft; Z68.26 Body mass index [BMI] 26.0-26.9, adult; N40.0 Benign prostatic hyperplasia without lower urinary tract symptoms
CPT/HCPCS: 36415; 36569; 70450; 70496; 70498; 70551; 71045; 72131; 72148; 77012; 80048; 80053; 80061; 80202; 81001; 82140; 82607; 82962; 83036; 83735; 84100; 84145; 84443; 84484; 85025; 85610; 85730; 87015; 87040; 87070; 87075; 87116; 87205; 87206; 87633; 87635; 88305; 88307; 88311; 88312; 92610; 93005; 93306; 93880; 94762; 97162; 97166; 97530; 97535; 97802; 99156; 99157; 99285; 99406; J7030; J7040; J7050; Q9957; Q9967; A4216

== ENCOUNTER 2023-10-30 10:44 | Outpatient (RCR) | payer MEDICARE, SELFPAY ==
[2023-10-30 11:05] LABS: Erythrocyte Sedimentation Rate 19 mm/hr (0-20)
[2023-10-30 11:09] LABS: Hematocrit 33.5 % (40-54); Hemoglobin 10.8 g/dL (13.0-16.5); Mean Corp Hgb Conc 32.2 g/dL (32-36); Mean Corpuscular Hgb 28.8 pg (27.0-32.0); Mean Corpuscular Volume 89.3 fL (80-94); Mean Platelet Vol. 8.5 fl (6.2-12.0); Platelet Count 305 K/mm3 (150-450); RBC Distribution Width CV 13.9 % (11.6-14.6); RBC Distribution Width SD 45.3 fl (35.1-43.9); Red Blood Count 3.75 M/mm3 (4.6-6.2); White Blood Count 7.2 K/mm3 (4.4-11.0)
[2023-10-30 11:18] LABS: Anion Gap 6 (5-15); BUN 12 mg/dL (7-18); BUN/Creat Ratio 12.6 RATIO (10-20); Chloride 105 mmol/L (98-107); Creatinine, Serum 0.95 mg/dL (0.70-1.30); EST Glomerular Filtration Rate 83 mL/min (>60); Est Glom Filt Rate - Afr Amer 101 mL/min (>60); Glucose 125 mg/dL (74-106); Potassium 3.4 mmol/L (3.5-5.1); Sodium Level 138 mmol/L (136-145)
[2023-10-30 11:21] LABS: Vancomycin, Trough Level 26.1 ug/mL (5.0-15.0)
== END 2023-11-12 23:59 ==
LOC: LABSPEC 10:44
PROVIDERS: PCP Internal Medicine; Referring Provider Internal Medicine Infectious Disease; Visit Provider Internal Medicine Infectious Disease
DX: M46.20 Osteomyelitis of vertebra, site unspecified (principal)
CPT/HCPCS: 80048; 80202; 85027; 85652

== ENCOUNTER 2023-11-01 11:04 | Emergency (ER) | payer MEDICARE, SELFPAY ==
[2023-11-01 11:05] VITALS: BP 152/96; PULSE 91; RESP 16; TEMP 36.2; O2SAT 96; BMI 26.9
--- NOTE | 2023-11-01 11:11 | EX.ED.DYSGE1 ---
HPI History of Present Illness Chief Complaint: Other, Pain/Inj Informant: patient Onset/Context/Timing Onset: Today Context: Gradual Onset Timing: Waxes and wanes Quality: Bleeding Location: Left upper arm Worsened by: Nothing Relieved by: Nothing Narrative Narrative: Patient presents with bleeding from his PICC line that began today. Patient states that he has an infection in his spine and he is on antibiotics for this. The patient states that his infusions have been running slowly. Patient states that the PICC line flushes without difficulty. Patient admits to some bruising around the site. Patient admits to some subjective chills but denies any fevers. Patient admits to a cough. Patient denies any shortness of breath. Patient also admits to some recent nausea and vomiting. Patient does not take any anticoagulants. [facility] Medical History Agent orange exposure Alcohol use Ambulates with cane Arthritis Arthropathy of cervical facet joint Asthma Atherosclerotic heart disease of [place] coronary artery without angina pectoris Back pain Bilirubinuria Cancer Cardiology follow-up encounter Cervical spondylosis Chondromalacia of both patellae Chondromalacia, left knee Chondromalacia, right knee Contact with or exposure to other viral diseases COVID-19 virus detected (11/19/20) Degeneration of cervical disc without myelopathy Degeneration of intervertebral disc of lumbosacral region Diabetes Fusion of spine, cervical region High cholesterol (~08/21/23) History of echocardiogram History of IBS History of pain when walking History of steroid therapy History of stress test Hyperlipemia Injury of head and neck Left knee DJD Nonrheumatic aortic (valve) stenosis with insufficiency Obesity Opioid dependence Prostate disease Radiculopathy of lumbosacral region Restless legs Right knee DJD Shortness of breath on exertion Smokeless tobacco use Spinal stenosis of lumbosacral region Spondylosis of lumbosacral region without myelopathy or radiculopathy Syncope Tear of medial meniscus of right knee Type 2 diabetes mellitus Wears hearing aid Home Medications aspirin 81 mg tablet,delayed release 81 mg PO DAILY HEART HEALTH 12/23/15 [History Last Taken 11/01/23] multivitamin 1 tab PO DAILY supplement 07/09/19 [History Last Taken 11/01/23] gabapentin 100 mg capsule 200 mg PO TID neuropathy 05/14/20 [History Last Taken 11/01/23] naproxen sodium 220 mg capsule (Aleve) 220 mg PO BID PRN Pain 02/04/22 [History Last Taken 11/01/23] albuterol sulfate 90 mcg/actuation aerosol inhaler 1 - 2 puff inhalation Q4H PRN PRN Wheezing #8.5 grams 04/21/22 [Rx Last Taken Unknown] handicap placard #1 ea 04/21/22 [Rx Last Taken Unknown] blood sugar diagnostic (FreeStyle Lite Strips) #100 ea 09/15/22 [Rx Last Taken Unknown] blood-glucose meter (FreeStyle Lite Meter kit) #1 ea 09/15/22 [Rx Last Taken Unknown] fluticasone propionate 50 mcg/actuation nasal spray,suspension 1 - 2 spray intranasal BID PRN allergies, congestion #16 grams 04/27/23 [Rx Last Taken 10/31/23] metformin 500 mg tablet 500 mg PO BID DIABETES #180 tabs 04/27/23 [Rx Last Taken 11/01/23] linaclotide 72 mcg capsule 72 mcg PO DAILY IBS #90 caps 06/27/23 [Rx Last Taken 11/01/23] acetaminophen 500 mg capsule 1,000 mg PO Q6H PRN pain 07/18/23 [History Last Taken 07/17/23 18:00] atorvastatin 40 mg tablet 40 mg PO QHS CHOLESTEROL #90 tabs 08/21/23 [Rx Last Taken 11/01/23] omeprazole 40 mg capsule,delayed release 40 mg PO DAILY PRN Reflux #30 caps 08/21/23 [Rx Last Taken 11/01/23] trazodone 50 mg tablet 50 - 100 mg (1 - 2 x 50 mg) PO QHS sleep #90 tabs 08/21/23 [Rx Last Taken 10/31/23] ondansetron 4 mg disintegrating tablet 4 mg PO Q6H PRN nausea and vomiting #20 tabs 10/03/23 [Rx Last Taken Unknown] oxycodone 5 mg tablet 7.5 mg PO TID PRN PRN pain 10/21/23 [History Last Taken 11/01/23] tamsulosin 0.4 mg capsule 0.4 mg PO QHS PRN urinary retention 10/21/23 [History Last Taken Unknown] ceftriaxone 2 gram intravenous solution 2 g IV Q24H 38 days 10/26/23 [Rx Last Taken 10/31/23] vancomycin 1,000 mg intravenous injection 2 g IV Q12H 38 days #76 ea 10/26/23 [Rx Last Taken 10/31/23] Allergy/AdvReac Type Severity Reaction Status Date / Time adhesive tape Allergy Rash Verified 11/01/23 11:07 sertraline [From Zoloft] AdvReac Unknown Verified 11/01/23 11:07 Family History Brother Heart disease Myocardial infarction 60's CAD (coronary artery disease) Father Myocardial infarction 65 CAD (coronary artery disease) Mother HLD (hyperlipidemia) when son was 16 following MVA, healthy aside HLD. Surgical History H/O cervical spine surgery (08/2020) H/O coronary artery bypass surgery (09/14/11) History of back surgery History of carpal tunnel release History of herniorrhaphy History of lateral meniscus repair of right knee (~2021) History of left heart catheterization (09/09/11) Hx laparoscopic cholecystectomy (~11/2022) Hx of bilateral cataract extraction Status post discectomy for herniated nucleus pulposus Social History household members: spouse Smoking Status: Never smoker Smokeless tobacco user: chewing tobacco alcohol intake: current alcohol intake frequency: a few times a month substance use type: does not use caffeine: Yes Type: coffee Number of servings: 2 ROS ROS ED Constitutional Constitutional ED: Reports chills and subjective; Denies fever(s) Eyes Eyes: Denies blurry vision or change in vision ENT ENT ED: Denies rhinorrhea or sore throat Cardiovascular Cardiovascular: Reports chest pain; Denies palpitations Respiratory/Chest Respiratory/Chest: Reports cough; Denies dyspnea Gastrointestinal Gastrointestinal: Reports nausea and vomiting Genitourinary Genitourinary ED: Denies dysuria or hematuria Musculoskeletal Musculoskeletal: Reports back pain and neck pain Integumentary Denies abscess or rash Neurologic Neurologic: Reports headache(s); Denies weakness Allergic/Immunologic Allergic/Immunologic ED: Denies mouth swelling or urticaria EXAM Physical Exam Const Vital Signs: 11/01/23 11:05 11/01/23 11:05 11/01/23 11:18 Temperature 97.1 F L 97.1 F L Temperature Source Temporal Temporal Pulse Rate 91 91 Respiratory Rate 16 16 Respiratory Effort Normal Respiratory Pattern Normal Blood Pressure 152/96 H 152/96 H Blood Pressure Mean 114 114 Pulse Ox 96 96 Oxygen Delivery Method Room Air Room Air Positive well nourished and well developed General Appearance ED: well developed and NAD HEENT Reports moist mucous membranes Neck supple and no JVD Resp normal respiratory effort and clear to auscultation bilaterally Cardio regular rate and regular rhythm GI non-tender and non-distended Palpation: soft Extremity Extremity Narrative: There is some ecchymosis around the PICC line site in the medial aspect of the left upper arm. There is some dried blood around the dressing. There is no active bleeding noted. Radial pulses are equal bilaterally. Neuro oriented x3, CN's II-XII intact bilaterally and no sensory deficits noted Sensorium / Orientation: alert Motor Exam: strength 5/5 throughout Psych mental status grossly normal MDM MDM MDM Narrative Medical decision making narrative: Differential diagnosis includes coagulopathy, anemia, and infection. CBC will be obtained to assess for leukocytosis and anemia. Basic metabolic profile will be obtained to assess for electrolyte abnormality and renal function. PT was INR and PTT will be obtained to assess for coagulopathy. Lab Data Attestation: I reviewed the patient's lab results. Lab results narrative: CBC was reviewed and showed a mild anemia with a hemoglobin of 10.1 and hematocrit 30.8. The remainder was within normal limits. Basic metabolic profile was reviewed and was within normal limits. PT was INR and PTT were reviewed and were within normal limits. Labs: Laboratory Results - last 24 hr 11/01/23 11:50 WBC 8.1 RBC 3.48 L Hgb 10.1 L Hct 30.8 L MCV 88.5 MCH 29.0 MCHC 32.8 RDW Std Deviation 44.5 H RDW Coeff of Frankie 13.8 Plt Count 269 MPV 7.8 Immature Gran % (Auto) 0.600 Neut % (Auto) 77.4 H Lymph % (Auto) 12.5 L [place] % (Auto) 7.6 Eos % (Auto) 1.7 Baso % (Auto) 0.2 Absolute Neuts (auto) 6.3 Absolute Lymphs (auto) 1.02 Nucleated RBC % 0 PT 13.3 INR 1.0 APTT 31.0 Sodium 139 Potassium 3.4 L Chloride 103 Carbon Dioxide 29.0 Anion Gap 7 BUN 10 Creatinine 0.94 Estim Creat Clear Calc 75.50 Est GFR (MDRD) Af Amer 102 Est GFR (MDRD) Non-Af 85 BUN/Creatinine Ratio 10.7 Glucose 98 Calcium 8.7 Treatment and Re-Evaluation :: Patient was evaluated by PICC line nurse. The PICC line flushed easily. There were no complications noted. Patient was advised of his findings. Patient was instructed to continue using his PICC line as previously instructed. Patient was instructed to return if worse in any way. Patient understood and was agreeable with the plan. All questions were answered. Discharge Plan Triage Chief Complaint: Other, Pain/Inj ED Provider: Vin Edmond Dx/Rx/DC Orders Clinical Impression: Bleeding from PICC line, Essential (primary) hypertension Prescriptions: No Action multivitamin Tablet 1 tab PO DAILY (DME) handicap placard See Rx Instructions .Route .MEDSUPPLY Qty: 1 0RF Rx Instructions: fatique , pain in right knee , oteoarathritis naproxen sodium [Aleve] 220 mg capsule 220 mg PO BID PRN (Reason: Pain) aspirin 81 MG tablet,delayed release (DR/EC) 81 mg PO DAILY gabapentin 100 MG capsule 200 mg PO TID acetaminophen 500 mg capsule 1,000 mg PO Q6H PRN (Reason: pain) oxycodone 5 mg tablet 7.5 mg PO TID PRN PRN (Reason: pain) tamsulosin 0.4 mg capsule 0.4 mg PO QHS PRN (Reason: urinary retention) ceftriaxone 2 gram recon soln 2 g IV Q24H 38 Days Rx Instructions: stop date 12/03/23. Dx: spine osteomyelitis. Weekly bmp, cbc, ESR, and vanc trough; fax to [phone]. Routine picc care per protocol. vancomycin 1,000 mg recon soln 2 g IV Q12H 38 Days Qty: 76 0RF Rx Instructions: stop date 12/03/23. Dx: spine osteomyelitis. Weekly bmp, cbc, ESR, and vanc trough; fax to [phone]. Routine picc care per protocol. albuterol sulfate 90 mcg/actuation HFA aerosol inhaler 1 - 2 puff INHALATION Q4H PRN PRN (Reason: Wheezing) Qty: 8.5 3RF (DME) FreeStyle Lite Strips Strip See Rx Instructions .Route Qty: 100 3RF Rx Instructions: Twice daily (DME) blood-glucose meter [FreeStyle Lite Meter] Kit See Rx Instructions .Route Qty: 1 0RF Rx Instructions: Test twice daily fluticasone propionate 50 mcg/actuation spray,suspension 1 - 2 spray intranasal BID PRN (Reason: allergies, congestion) Qty: 16 3RF Rx Instructions: administer into each nostril; 2 sprays in each nostril for the first week metformin 500 mg tablet 500 mg PO BID Qty: 180 3RF linaclotide 72 mcg capsule 72 mcg PO DAILY Qty: 90 3RF atorvastatin 40 mg tablet 40 mg PO QHS Qty: 90 3RF Hold Instructions: 10/01/21- Myalgia and sleep issues omeprazole 40 mg capsule,delayed release(DR/EC) 40 mg PO DAILY PRN (Reason: Reflux) Qty: 30 1RF trazodone 50 mg tablet 50 - 100 mg PO QHS Qty: 90 3RF ondansetron 4 mg tablet,disintegrating 4 mg PO Q6H PRN (Reason: nausea and vomiting) Qty: 20 0RF Primary Care Provider: Marlen Bear Referrals: Marlen Bear MD [Primary Care Provider] - 5-7 Days Activity Restrictions/Additional Instructions: Continue using your PICC line as previously instructed. Follow-up with your primary care physician in 5 to 7 days. Disposition Disposition: Home, Self Care
[2023-11-01 12:10] LABS: Absolute Lymphocyte Count 1.02 X10^3/uL (0.83-4.51); Absolute Neutrophil Count 6.3 X10^3/uL (2.0-7.7); Basophil# 0.02 X10^3/uL; Basophil% 0.2 % (0-1); Eosinophil# 0.14 X10^3/uL; Eosinophils% 1.7 % (0-5); Hematocrit 30.8 % (40-54); Hemoglobin 10.1 g/dL (13.0-16.5); Lymphocyte # 1.02 X10^3/ul (0.83-4.51); Lymphocyte % 12.5 % (19-41); Mean Corp Hgb Conc 32.8 g/dL (32-36); Mean Corpuscular Volume 88.5 fL (80-94); Mean Platelet Vol. 7.8 fl (6.2-12.0); Monocyte# 0.62 X10^3/uL; Monocyte% 7.6 % (0-10); NRBC Flagged by Analyzer 0 % (0-5); Neutrophil # 6.29 X10^3/uL (2.7-7.7); Neutrophil % 77.4 % (47-70); Platelet Count 269 K/mm3 (150-450); RBC Distribution Width CV 13.8 % (11.6-14.6); RBC Distribution Width SD 44.5 fl (35.1-43.9); Red Blood Count 3.48 M/mm3 (4.6-6.2); White Blood Count 8.1 K/mm3 (4.4-11.0)
[2023-11-01 12:14] LABS: Anion Gap 7 (5-15); BUN 10 mg/dL (7-18); BUN/Creat Ratio 10.7 RATIO (10-20); Calcium,Total 8.7 mg/dL (8.5-10.1); Chloride 103 mmol/L (98-107); Creatinine, Serum 0.94 mg/dL (0.70-1.30); EST Glomerular Filtration Rate 85 mL/min (>60); Est Glom Filt Rate - Afr Amer 102 mL/min (>60); Glucose 98 mg/dL (74-106); Potassium 3.4 mmol/L (3.5-5.1); Sodium Level 139 mmol/L (136-145)
[2023-11-01 12:21] LABS: Prothrombin Time (Protime)PT. 13.3 SECONDS (11.7-14.9)
--- NOTE | 2023-11-01 13:37 | PCM.OP.PRO ---
Procedure Report Date of Procedure: 11/01/23 This nurse practitioner was called to the emergency department to evaluate the patient's PICC. Per the , the patient has been receiving IV vancomycin via gravity/flow meter. The infusions have been taking longer and longer and surpassed 3 hours today for 1 infusion. The patient and also reported bleeding, from what sounds like the connection of the hub of the PICC line. The emergency department staff was able to obtain blood return. Using clean gloves, the patient's PICC line dressing was removed, including the StatLock. Per procedure note of PICC line insertion, the PICC line was trimmed to a length of 49 cm with 0 cm external. On assessment, the PICC line remained at 0 cm. The site was cleansed with chlorhexidine. A new StatLock was applied. A flushed needleless connector was exchanged for the existing connector. And a new CHG Tegaderm was applied. The lumen had brisk blood return, and flushed easily. Per the , she was unaware that she should be clamping the PICC line. We also discussed that the PICC line and the needleless connector are separate. Therefore, these can become loose which possibly could have contributed to the bleeding earlier. Using the teach back method, the performed two flushes under observation-- scrubbing the hub, checking that the connection is tight between the connector and the PICC, and opening the clamp prior to flushing and closing the clamp after on the final flush. The verbalized understanding. I gave her my number to call if she has any questions.
[2023-11-01 14:21] VITALS: BP 135/86; PULSE 74; RESP 16; TEMP 36.5; O2SAT 99
== END 2023-11-01 14:22 | disposition home or self-care (01) ==
PROVIDERS: Emergency Provider Emergency Medicine; PCP Internal Medicine; Visit Provider Emergency Medicine
DX: T85.838A Hemorrhage due to other internal prosthetic devices, implants and grafts, initial encounter (principal); M86.9 Osteomyelitis, unspecified; E11.69 Type 2 diabetes mellitus with other specified complication; R11.2 Nausea with vomiting, unspecified; I10 Essential (primary) hypertension; F17.220 Nicotine dependence, chewing tobacco, uncomplicated; J45.909 Unspecified asthma, uncomplicated; I25.10 Atherosclerotic heart disease of native coronary artery without angina pectoris; E78.00 Pure hypercholesterolemia, unspecified; Z79.82 Long term (current) use of aspirin; Z79.84 Long term (current) use of oral hypoglycemic drugs; Z79.899 Other long term (current) drug therapy; R51.9 Headache, unspecified; Y71.8 Miscellaneous cardiovascular devices associated with adverse incidents, not elsewhere classified
CPT/HCPCS: 36592; 80048; 85025; 85610; 85730; 99282; A4216

== ENCOUNTER 2023-11-06 15:22 | Outpatient (RCR) | payer MEDICARE, SELFPAY ==
[2023-11-06 15:59] LABS: Erythrocyte Sedimentation Rate 23 mm/hr (0-20)
[2023-11-06 16:02] LABS: Hematocrit 33.5 % (40-54); Hemoglobin 10.7 g/dL (13.0-16.5); Mean Corp Hgb Conc 31.9 g/dL (32-36); Mean Corpuscular Hgb 29.3 pg (27.0-32.0); Mean Corpuscular Volume 91.8 fL (80-94); Platelet Count 365 K/mm3 (150-450); RBC Distribution Width CV 13.7 % (11.6-14.6); RBC Distribution Width SD 46.5 fl (35.1-43.9); Red Blood Count 3.65 M/mm3 (4.6-6.2); White Blood Count 6.4 K/mm3 (4.4-11.0)
[2023-11-06 16:21] LABS: Anion Gap 7 (5-15); BUN 14 mg/dL (7-18); Calcium,Total 9.1 mg/dL (8.5-10.1); Chloride 102 mmol/L (98-107); Creatinine, Serum 1.17 mg/dL (0.70-1.30); EST Glomerular Filtration Rate 65 mL/min (>60); Est Glom Filt Rate - Afr Amer 79 mL/min (>60); Glucose 108 mg/dL (74-106); Potassium 3.5 mmol/L (3.5-5.1); Sodium Level 137 mmol/L (136-145)
[2023-11-06 16:23] LABS: Vancomycin, Trough Level 43.2 ug/mL (5.0-15.0)
== END 2023-11-12 23:59 ==
LOC: LABSPEC 15:22
PROVIDERS: PCP Internal Medicine; Referring Provider Internal Medicine Infectious Disease; Visit Provider Internal Medicine Infectious Disease
DX: M46.28 Osteomyelitis of vertebra, sacral and sacrococcygeal region (principal)
CPT/HCPCS: 80048; 80202; 85027; 85652

== ENCOUNTER 2023-11-07 09:48 | Outpatient (CLI) | payer MEDICARE, SELFPAY | END 2023-11-07 09:49 | disposition home or self-care (01) | LOC: MEDOUTP 09:48 | PROVIDERS: PCP Internal Medicine; Visit Provider Internal Medicine Infectious Disease | DX: M46.46 Discitis, unspecified, lumbar region (principal) | CPT/HCPCS: 96523; A4216 ==

== ENCOUNTER 2023-11-09 11:56 | Outpatient (RCR) | payer MEDICARE, SELFPAY ==
[2023-11-09 12:31] LABS: Anion Gap 8 (5-15); BUN 13 mg/dL (7-18); BUN/Creat Ratio 11.1 RATIO (10-20); Calcium,Total 9.2 mg/dL (8.5-10.1); Chloride 103 mmol/L (98-107); Creatinine, Serum 1.17 mg/dL (0.70-1.30); EST Glomerular Filtration Rate 65 mL/min (>60); Est Glom Filt Rate - Afr Amer 79 mL/min (>60); Glucose 112 mg/dL (74-106); Potassium 3.4 mmol/L (3.5-5.1); Sodium Level 138 mmol/L (136-145)
[2023-11-09 12:32] LABS: Vancomycin, Trough Level 22.4 ug/mL (5.0-15.0)
== END 2023-11-11 18:00 | disposition home or self-care (01) ==
LOC: HHLAB 11:56
PROVIDERS: PCP Internal Medicine; Referring Provider Internal Medicine Infectious Disease; Visit Provider Internal Medicine Infectious Disease
DX: T81.49XA Infection following a procedure, other surgical site, initial encounter (principal)
CPT/HCPCS: 80048; 80202

== ENCOUNTER 2023-11-10 13:08 | Outpatient (RCR) | payer MEDICARE, SELFPAY ==
[2023-11-10 13:41] LABS: Anion Gap 9 (5-15); BUN 16 mg/dL (7-18); BUN/Creat Ratio 13.8 RATIO (10-20); Calcium,Total 9.2 mg/dL (8.5-10.1); Chloride 100 mmol/L (98-107); Creatinine, Serum 1.16 mg/dL (0.70-1.30); EST Glomerular Filtration Rate 66 mL/min (>60); Est Glom Filt Rate - Afr Amer 80 mL/min (>60); Glucose 177 mg/dL (74-106); Potassium 3.1 mmol/L (3.5-5.1); Sodium Level 136 mmol/L (136-145)
[2023-11-10 13:45] LABS: Vancomycin, Trough Level 12.1 ug/mL (5.0-15.0)
== END 2023-11-11 18:00 | disposition home or self-care (01) ==
LOC: HHLAB 13:08
PROVIDERS: PCP Internal Medicine; Referring Provider Internal Medicine Infectious Disease; Visit Provider Internal Medicine Infectious Disease
DX: T81.49XA Infection following a procedure, other surgical site, initial encounter (principal)
CPT/HCPCS: 80048; 80202

== ENCOUNTER 2023-11-20 10:10 | Outpatient (RCR) | payer MEDICARE, SELFPAY ==
[2023-11-13 11:24] LABS: Erythrocyte Sedimentation Rate 19 mm/hr (0-20)
[2023-11-13 11:27] LABS: Hematocrit 32.4 % (40-54); Hemoglobin 10.3 g/dL (13.0-16.5); Mean Corp Hgb Conc 31.8 g/dL (32-36); Mean Corpuscular Hgb 28.3 pg (27.0-32.0); Mean Platelet Vol. 8.8 fl (6.2-12.0); Platelet Count 306 K/mm3 (150-450); RBC Distribution Width CV 13.5 % (11.6-14.6); Red Blood Count 3.64 M/mm3 (4.6-6.2)
[2023-11-13 11:40] LABS: Anion Gap 6 (5-15); BUN 19 mg/dL (7-18); BUN/Creat Ratio 16.8 RATIO (10-20); Calcium,Total 8.8 mg/dL (8.5-10.1); Chloride 102 mmol/L (98-107); Creatinine, Serum 1.13 mg/dL (0.70-1.30); EST Glomerular Filtration Rate 68 mL/min (>60); Est Glom Filt Rate - Afr Amer 82 mL/min (>60); Glucose 103 mg/dL (74-106); Potassium 3.7 mmol/L (3.5-5.1); Sodium Level 137 mmol/L (136-145)
[2023-11-13 11:43] LABS: Vancomycin, Trough Level 23.1 ug/mL (5.0-15.0)
[2023-11-16 09:55] LABS: Erythrocyte Sedimentation Rate 18 mm/hr (0-20)
[2023-11-16 09:57] LABS: Hematocrit 32.9 % (40-54); Hemoglobin 10.8 g/dL (13.0-16.5); Mean Corp Hgb Conc 32.8 g/dL (32-36); Mean Corpuscular Hgb 28.3 pg (27.0-32.0); Mean Corpuscular Volume 86.4 fL (80-94); Mean Platelet Vol. 8.9 fl (6.2-12.0); Platelet Count 307 K/mm3 (150-450); RBC Distribution Width CV 13.4 % (11.6-14.6); RBC Distribution Width SD 42.3 fl (35.1-43.9); Red Blood Count 3.81 M/mm3 (4.6-6.2); White Blood Count 7.3 K/mm3 (4.4-11.0)
[2023-11-16 10:13] LABS: Vancomycin, Trough Level 11.7 ug/mL (5.0-15.0)
[2023-11-16 10:22] LABS: Anion Gap 9 (5-15); BUN 22 mg/dL (7-18); BUN/Creat Ratio 19.1 RATIO (10-20); Calcium,Total 8.6 mg/dL (8.5-10.1); Chloride 95 mmol/L (98-107); Creatinine, Serum 1.15 mg/dL (0.70-1.30); EST Glomerular Filtration Rate 67 mL/min (>60); Est Glom Filt Rate - Afr Amer 81 mL/min (>60); Glucose 126 mg/dL (74-106); Potassium 2.9 mmol/L (3.5-5.1); Sodium Level 130 mmol/L (136-145)
[2023-11-20 10:42] LABS: Anion Gap 9 (5-15); BUN 21 mg/dL (7-18); BUN/Creat Ratio 18.4 RATIO (10-20); Calcium,Total 8.7 mg/dL (8.5-10.1); Chloride 99 mmol/L (98-107); Creatinine, Serum 1.14 mg/dL (0.70-1.30); EST Glomerular Filtration Rate 67 mL/min (>60); Est Glom Filt Rate - Afr Amer 82 mL/min (>60); Glucose 158 mg/dL (74-106); Sodium Level 137 mmol/L (136-145)
[2023-11-20 10:44] LABS: Erythrocyte Sedimentation Rate 9 mm/hr (0-20)
[2023-11-20 10:45] LABS: Vancomycin, Trough Level 18.4 ug/mL (5.0-15.0)
[2023-11-20 10:47] LABS: Hematocrit 30.3 % (40-54); Mean Corpuscular Hgb 28.7 pg (27.0-32.0); Mean Corpuscular Volume 86.8 fL (80-94); Mean Platelet Vol. 8.9 fl (6.2-12.0); Platelet Count 278 K/mm3 (150-450); RBC Distribution Width CV 13.5 % (11.6-14.6); RBC Distribution Width SD 42.6 fl (35.1-43.9); Red Blood Count 3.49 M/mm3 (4.6-6.2); White Blood Count 6.8 K/mm3 (4.4-11.0)
== END 2023-12-12 23:59 ==
LOC: LABSPEC 10:10
PROVIDERS: PCP Internal Medicine; Referring Provider Internal Medicine Infectious Disease; Visit Provider Internal Medicine Infectious Disease
DX: T81.49XA Infection following a procedure, other surgical site, initial encounter (principal); M86.9 Osteomyelitis, unspecified
CPT/HCPCS: 80048; 80202; 85027; 85652

== ENCOUNTER 2023-11-27 09:33 | Outpatient (RCR) | payer MEDICARE, SELFPAY ==
[2023-11-27 10:00] LABS: Hematocrit 32.9 % (40-54); Hemoglobin 10.3 g/dL (13.0-16.5); Mean Corp Hgb Conc 31.3 g/dL (32-36); Mean Corpuscular Hgb 28.5 pg (27.0-32.0); Mean Corpuscular Volume 90.9 fL (80-94); Mean Platelet Vol. 8.3 fl (6.2-12.0); Platelet Count 313 K/mm3 (150-450); RBC Distribution Width CV 13.8 % (11.6-14.6); RBC Distribution Width SD 46.2 fl (35.1-43.9); Red Blood Count 3.62 M/mm3 (4.6-6.2); White Blood Count 6.3 K/mm3 (4.4-11.0)
[2023-11-27 10:44] LABS: Anion Gap 5 (5-15); BUN 14 mg/dL (7-18); BUN/Creat Ratio 11.1 RATIO (10-20); Calcium,Total 9.1 mg/dL (8.5-10.1); Chloride 104 mmol/L (98-107); Creatinine, Serum 1.26 mg/dL (0.70-1.30); EST Glomerular Filtration Rate 60 mL/min (>60); Est Glom Filt Rate - Afr Amer 73 mL/min (>60); Glucose 100 mg/dL (74-106); Sodium Level 139 mmol/L (136-145)
[2023-11-27 10:48] LABS: Vancomycin, Trough Level 21.3 ug/mL (5.0-15.0)
[2023-11-27 14:13] LABS: Erythrocyte Sedimentation Rate 11 mm/hr (0-20)
== END 2023-12-12 23:59 ==
LOC: LABSPEC 09:33
PROVIDERS: PCP Internal Medicine; Referring Provider Internal Medicine Infectious Disease; Visit Provider Internal Medicine Infectious Disease
DX: M46.20 Osteomyelitis of vertebra, site unspecified (principal)
CPT/HCPCS: 80048; 80202; 85027; 85652

== ENCOUNTER 2023-12-09 21:07 | Inpatient (IN) | payer MEDICARE, SELFPAY ==
[2023-12-09 21:08] VITALS: BP 118/98; PULSE 119; RESP 18; TEMP 36.8; O2SAT 96
--- NOTE | 2023-12-09 21:30 | EDS_ITS ---
HPI <MARIIA Doshi - Last Filed: 12/09/23 22:02> History of Present Illness Chief Complaint: Back Narrative Narrative: Patient is a 68-year-old male with history of hypertension, type 2 diabetes, history of L5 laminectomy in July, with complications. Patient developed discitis and was involved in 6 weeks of IV vancomycin. Patient has finished the vancomycin 1 to 2 weeks ago, had his PICC line removed 5 days ago. Patient states for the last 2 days the pain in his lower back has been unbearable, it has been wrapping around his hip going down his right thigh. Patient denies any bowel or bladder continence, patient [place] any infectious symptoms such as fever chills nausea or vomiting. Patient does see a spine surgeon in [facility]. REPLACED BY [facility] <MARIIA Doshi - Last Filed: 12/09/23 22:02> REPLACED BY [facility] Medical History Agent orange exposure Alcohol use Ambulates with cane Arthritis Arthropathy of cervical facet joint Asthma Atherosclerotic heart disease of [place] coronary artery without angina pectoris Back pain Bilateral primary osteoarthritis of knee Bilirubinuria BPH w urinary obs/LUTS Cancer Cardiology follow-up encounter Cervical spondylosis Chondromalacia of both patellae Chondromalacia, left knee Chondromalacia, right knee Contact with or exposure to other viral diseases COVID-19 virus detected (11/19/20) Degeneration of cervical disc without myelopathy Degeneration of intervertebral disc of lumbosacral region Diabetes Essential (primary) hypertension Fibromyalgia Fusion of spine, cervical region High cholesterol (~08/21/23) History of echocardiogram History of IBS History of pain when walking History of steroid therapy History of stress test Hyperlipemia Injury of head and neck Left knee DJD Lumbosacral radiculopathy at L5 Nonrheumatic aortic (valve) stenosis with insufficiency Obesity Opioid dependence Prostate disease Radiculopathy of lumbosacral region Restless legs Right knee DJD Shortness of breath on exertion Smokeless tobacco use Spinal stenosis of lumbosacral region Spondylosis of lumbosacral region without myelopathy or radiculopathy Syncope Tear of medial meniscus of right knee Tension headache Type 2 diabetes mellitus Wears hearing aid Home Medications aspirin 81 mg tablet,delayed release 81 mg PO DAILY HEART HEALTH 05/11/16 [History Last Taken 11/01/23] multivitamin 1 tab PO DAILY supplement 07/09/19 [History Last Taken 11/01/23] gabapentin 100 mg capsule 200 mg PO TID neuropathy 05/14/20 [History Last Taken 11/01/23] naproxen sodium 220 mg capsule (Aleve) 220 mg PO BID PRN Pain 02/04/22 [History Last Taken 11/01/23] albuterol sulfate 90 mcg/actuation aerosol inhaler 1 - 2 puff inhalation Q4H PRN PRN Wheezing #8.5 grams 04/21/22 [Rx Last Taken Unknown] handicap placard #1 ea 04/21/22 [Rx Last Taken Unknown] blood sugar diagnostic (FreeStyle Lite Strips) #100 ea 09/15/22 [Rx Last Taken Unknown] blood-glucose meter (FreeStyle Lite Meter kit) #1 ea 09/15/22 [Rx Last Taken Unknown] fluticasone propionate 50 mcg/actuation nasal spray,suspension 1 - 2 spray intranasal BID PRN allergies, congestion #16 grams 04/27/23 [Rx Last Taken 10/31/23] linaclotide 72 mcg capsule 72 mcg PO DAILY IBS #90 caps 06/27/23 [Rx Last Taken 11/01/23] atorvastatin 40 mg tablet 40 mg PO QHS CHOLESTEROL #90 tabs 08/21/23 [Rx Last Taken 11/01/23] omeprazole 40 mg capsule,delayed release 40 mg PO DAILY PRN Reflux #30 caps 08/21/23 [Rx Last Taken 11/01/23] trazodone 50 mg tablet 50 - 100 mg (1 - 2 x 50 mg) PO QHS sleep #90 tabs 08/21/23 [Rx Last Taken 10/31/23] ondansetron 4 mg disintegrating tablet 4 mg PO Q6H PRN nausea and vomiting #20 tabs 10/03/23 [Rx Last Taken Unknown] oxycodone 5 mg tablet 7.5 mg PO TID PRN PRN pain 10/21/23 [History Last Taken 11/01/23] baclofen 10 mg tablet 10 mg PO TID PRN PRN muscle spasm 12/10/23 [History Last Taken Unknown] acetaminophen 500 mg capsule 1,000 mg (2 x 500 mg) PO Q8H PRN PRN pain #3 caps 12/12/23 [Rx Last Taken 07/17/23 18:00] metformin 500 mg tablet 500 mg PO BID 1 month #60 tabs 12/12/23 [Rx Last Taken Unknown] Allergy/AdvReac Type Severity Reaction Status Date / Time adhesive tape Allergy Rash Verified 12/09/23 21:08 sertraline [From Zoloft] AdvReac Unknown Verified 12/09/23 21:08 Family History Brother Heart disease Myocardial infarction 60's CAD (coronary artery disease) Father Myocardial infarction 65 CAD (coronary artery disease) Mother HLD (hyperlipidemia) when son was 16 following MVA, healthy aside HLD. Surgical History H/O cervical spine surgery (08/2020) H/O coronary artery bypass surgery (09/14/11) History of back surgery History of carpal tunnel release History of herniorrhaphy History of lateral meniscus repair of right knee (~2021) History of left heart catheterization (09/09/11) Hx laparoscopic cholecystectomy (~11/2022) Hx of bilateral cataract extraction S/P laminectomy Status post discectomy for herniated nucleus pulposus Social History household members: spouse Smoking Status: Never smoker Smokeless tobacco user: chewing tobacco alcohol intake: current alcohol intake frequency: a few times a month substance use type: does not use caffeine: Yes Type: coffee Number of servings: 2 ROS <MARIIA Doshi - Last Filed: 12/09/23 22:02> ROS ED ROS Narrative Constitutional: Negative for fever, chills, weight loss, weakness Eyes: Negative for vision loss, vision change, double vision ENT: Negative for any sore throat, ear pain, congestion Cardiovascular: Negative for any chest pain, tightness, palpitations Respiratory: Negative for any cough, sputum production, hemoptysis, dyspnea, dyspnea on exertion, orthopnea Gastrointestinal: Negative for any abdominal pain, nausea, vomiting, diarrhea, constipation, blood in stool, blood in vomit : Negative for any urinary frequency, dysuria, retention, blood in urine Muscle skeletal: Negative for any neck pain. Pain to the lower back that rates down the right hip, right leg. Neurological: Negative for any headache, syncope, dizziness Skin: Negative for any rashes, itching, abrasions, lacerations Psychiatric: Negative for any depression, anxiety, stress, suicidal ideation, homicidal ideation Hematologic: Negative for any excessive bruising, easy bleeding EXAM <MARIIA Doshi - Last Filed: 12/09/23 22:02> Physical Exam Narrative Exam Narrative: Vital signs reviewed. HEET: Head normocephalic atraumatic, TMs clear bilaterally. Posterior pharynx is clear, moist mucous membranes. Nares clear bilaterally. Neck: Supple with no lymphadenopathy or tenderness. No signs of meningismus. Cardiac: Regular rate and rhythm no murmurs gallops or rubs, equal peripheral pulses bilaterally. Respiratory: Lungs clear to auscultation bilaterally. No chest tenderness. Abdomen: Soft, nontender, nondistended. No abdominal bruit or pulsatile masses. No hepatosplenomegaly Extremities: No peripheral edema, no signs of gross trauma or deformity. Active full range of motion of all extremities. Patient has no neurological focal deficits. Patient's strength to bilateral lower extremities 4 out of 5, he states this is consistent. Neuro: Cranial nerves II through XII intact, no focal neurological deficits. Skin: Clean dry and intact with no rash, purpura, petechiae, vesicles or pustules. Backs/flank: No CVA tenderness, no midline spinal tenderness, no deformity. Sitting the patient up because significant pain. Patient has pain to the lower spine worse on the right side, the incision site looks well-appearing. There is no evidence of any erythema, there is no drainage. It is almost all the way healed. Psych: Normal mood and affect. No SI, HI or acute psychosis. Const Vital Signs: 12/09/23 21:08 12/09/23 22:27 12/09/23 23:07 Temperature 98.3 F 97.4 F L Temperature Source Oral Pulse Rate 119 H 91 88 Respiratory Rate 18 18 18 Blood Pressure 118/98 H 147/96 H Blood Pressure Mean 104 113 Pulse Ox 96 91 96 Oxygen Delivery Method Room Air Room Air <Dr. Prince Baltazar DO - Last Filed: 12/14/23 16:52> Physical Exam Const Vital Signs: 12/09/23 21:08 12/09/23 22:27 12/09/23 23:07 Temperature 98.3 F 97.4 F L Temperature Source Oral Pulse Rate 119 H 91 88 Respiratory Rate 18 18 18 Blood Pressure 118/98 H 147/96 H Blood Pressure Mean 104 113 Pulse Ox 96 91 96 Oxygen Delivery Method Room Air Room Air [facility] <Momo PatinoMARIIA - Last Filed: 12/09/23 22:02> [facility] Lab Data Labs: Laboratory Results - last 24 hr 12/09/23 21:37 WBC 6.1 RBC 3.71 L Hgb 10.9 L Hct 33.0 L MCV 88.9 MCH 29.4 MCHC 33.0 RDW Std Deviation 44.4 H RDW Coeff of Frankie 13.5 Plt Count 278 MPV 8.2 Immature Gran % (Auto) 0.200 Neut % (Auto) 62.5 Lymph % (Auto) 22.6 Hooker % (Auto) 9.7 Eos % (Auto) 4.3 Baso % (Auto) 0.7 Absolute Neuts (auto) 3.8 Absolute Lymphs (auto) 1.38 Nucleated RBC % 0 ESR 32 H Sodium 138 Potassium 4.0 Chloride 105 Carbon Dioxide 26.0 Anion Gap 7 BUN 31 H Creatinine 1.52 H Estim Creat Clear Calc 46.69 Est GFR (MDRD) Af Amer 59 L Est GFR (MDRD) Non-Af 48 L BUN/Creatinine Ratio 20.4 H Glucose 128 H Calcium 9.4 C-React Prot Ext Range 26.80 H Radiography Diagnostic Testing: Clinical Impression(s) from Imaging Studies Lumbar Spine CT 12/09/23 23:11 IMPRESSION: Advanced degenerative changes. Similar straightening of the usual lordotic curvature and levoscoliosis. Similar degree in size of multifocal bony erosions of the opposing vertebral body endplates at L4-5, likely due to indolent and actively treated osteomyelitis-discitis. Mild surrounding increased bony sclerosis around the erosions suggesting early healing-reactive bone formation. They are not yet healed. No new erosions or significant change in surrounding soft tissues. No enhancing paraspinous or intraspinous abscess. Electronically Signed: eRbecca Woodawrd MD at 23:58 EDT Reading Location ID and State: [facility] / [place] Tel , Service support , Treatment and Re-Evaluation :: Differential diagnosis includes however is not limited to: Acute on chronic back pain, discitis, muscle strain, muscle spasm, spinal abscess Patient appears to be in mild distress secondary to pain to his lower back. Patient's vital signs are stable, patient is slightly tachycardic however he has afebrile, I believe the tachycardia is secondary to pain. I did perform an oral temperature myself which was negative and normal. Patient will receive basic laboratory values including CBC, BMP, inflammatory markers. Patient will receive IV Zofran, 0.5 mg of IV Dilaudid. Patient will be reevaluated. <Dr. Prince Baltazar, DO - Last Filed: 12/14/23 16:52> [facility] Lab Data Attestation: I reviewed the patient's lab results. Labs: Laboratory Results - last 24 hr 12/09/23 21:37 WBC 6.1 RBC 3.71 L Hgb 10.9 L Hct 33.0 L MCV 88.9 MCH 29.4 MCHC 33.0 RDW Std Deviation 44.4 H RDW Coeff of Frankie 13.5 Plt Count 278 MPV 8.2 Immature Gran % (Auto) 0.200 Neut % (Auto) 62.5 Lymph % (Auto) 22.6 Hooker % (Auto) 9.7 Eos % (Auto) 4.3 Baso % (Auto) 0.7 Absolute Neuts (auto) 3.8 Absolute Lymphs (auto) 1.38 Nucleated RBC % 0 ESR 32 H Sodium 138 Potassium 4.0 Chloride 105 Carbon Dioxide 26.0 Anion Gap 7 BUN 31 H Creatinine 1.52 H Estim Creat Clear Calc 46.69 Est GFR (MDRD) Af Amer 59 L Est GFR (MDRD) Non-Af 48 L BUN/Creatinine Ratio 20.4 H Glucose 128 H Calcium 9.4 C-React Prot Ext Range 26.80 H Radiography Diagnostic Testing: Clinical Impression(s) from Imaging Studies Lumbar Spine CT 12/09/23 23:11 IMPRESSION: Advanced degenerative changes. Similar straightening of the usual lordotic curvature and levoscoliosis. Similar degree in size of multifocal bony erosions of the opposing vertebral body endplates at L4-5, likely due to indolent and actively treated osteomyelitis-discitis. Mild surrounding increased bony sclerosis around the erosions suggesting early healing-reactive bone formation. They are not yet healed. No new erosions or significant change in surrounding soft tissues. No enhancing paraspinous or intraspinous abscess. Electronically Signed: Rebecca Woodward MD at 23:58 EDT , Treatment and Re-Evaluation :: Differential diagnosis includes however is not limited to: Acute on chronic back pain, discitis, muscle strain, muscle spasm, spinal abscess Patient appears to be in mild distress secondary to pain to his lower back. Patient's vital signs are stable, patient is slightly tachycardic however he has afebrile, I believe the tachycardia is secondary to pain. I did perform an oral temperature myself which was negative and normal. Patient will receive basic laboratory values including CBC, BMP, inflammatory markers. Patient will receive IV Zofran, 0.5 mg of IV Dilaudid. Patient will be reevaluated. Interventions / MDM: Differential diagnosis: Lumbar radiculopathy, discitis, osteomyelitis Diagnosis considered but do not suspect: N/A My EKG interpretation: N/A Imaging independently reviewed and interpreted by myself: CT lumbar IV contrast: Pending External documents reviewed: Patient's hospitalizations and MRI with discitis and osteomyelitis lower lumbar spine. Test considered but not ordered:N/A ED course: Attending note: Patient seen and evaluated with tombstone erector. I perform my own [id number] evaluation. I agree with the plan of work-up. Worsening lower back pain with pain rating to his anterior thigh past 2 days. No loss of bowel or bladder control. No fevers however reports chills. Status post laminectomy July 18, 2023 with L5 nerve root decompression. He is followed by Dr. Corona. Been having pain since then, in October is admitted for confusion he was found to have osteomyelitis and discitis of his lower back. He was on ceftriaxone and vancomycin finished treatment 6 days ago PICC line removed 5 days ago. Denies any trauma. Patient examined lumbar scar was healed there is no erythema. Is treated with Dilaudid Zofran fluids. Labs were drawn, normal white count, however elevated inflammatory markers. With patient off antibiotics, worsening pain, concerns for reinfection.Plans for admission for inpatient MRI. Is nontoxic, do not feel emergent 1 as needed in the ED at this time. I did discuss with hospitalist Dr. Pacheco, would like a CT lumbar spine with IV contrast in the ER. Blood cultures x 2, Rocephin and vancomycin started before blood cultures. Of note, reviewing records he did not have a leukocytosis with his spinal infection. Re-evaluation: stable Disposition discussed with patient/family/significant other: Patient Case discussed with consulting clinician: Hospitalist This note was generated with [employer] dictation software. It may contain incorrect words, spelling, and punctuation that were not noted in checking the note before signing. Discharge Plan Dx/Rx/DC Orders Clinical Impression: Acute lumbar radiculopathy, History of discitis, History of osteomyelitis, Renal insufficiency Disposition Disposition: Acute Care Hospital [facility] Discharge Date/Time: 12/10/23 00:57
[2023-12-09 21:32] VITALS: BMI 24.7
[2023-12-09] MEDS: HYDROmorphone 1 MG/ML Syringe 0.5 MG IV (21:41)
[2023-12-09] MEDS: Ondansetron 4 MG/2 ML Vial IV (21:41)
[2023-12-09 21:46] LABS: Absolute Lymphocyte Count 1.38 X10^3/uL (0.83-4.51); Absolute Neutrophil Count 3.8 X10^3/uL (2.0-7.7); Basophil# 0.04 X10^3/uL; Basophil% 0.7 % (0-1); Eosinophil# 0.26 X10^3/uL; Eosinophils% 4.3 % (0-5); Hemoglobin 10.9 g/dL (13.0-16.5); Lymphocyte # 1.38 X10^3/ul (0.83-4.51); Lymphocyte % 22.6 % (19-41); Mean Corpuscular Hgb 29.4 pg (27.0-32.0); Mean Corpuscular Volume 88.9 fL (80-94); Mean Platelet Vol. 8.2 fl (6.2-12.0); Monocyte# 0.59 X10^3/uL; Monocyte% 9.7 % (0-10); NRBC Flagged by Analyzer 0 % (0-5); Neutrophil # 3.83 X10^3/uL (2.7-7.7); Neutrophil % 62.5 % (47-70); Platelet Count 278 K/mm3 (150-450); RBC Distribution Width CV 13.5 % (11.6-14.6); RBC Distribution Width SD 44.4 fl (35.1-43.9); Red Blood Count 3.71 M/mm3 (4.6-6.2); White Blood Count 6.1 K/mm3 (4.4-11.0)
[2023-12-09 21:53] LABS: Erythrocyte Sedimentation Rate 32 mm/hr (0-20)
[2023-12-09 22:03] LABS: Anion Gap 7 (5-15); BUN 31 mg/dL (7-18); BUN/Creat Ratio 20.4 RATIO (10-20); Calcium,Total 9.4 mg/dL (8.5-10.1); Chloride 105 mmol/L (98-107); Creatinine, Serum 1.52 mg/dL (0.70-1.30); EST Glomerular Filtration Rate 48 mL/min (>60); Est Glom Filt Rate - Afr Amer 59 mL/min (>60); Estimated Creatinine Clearance 46.69 ml/min; Glucose 128 mg/dL (74-106); Sodium Level 138 mmol/L (136-145)
[2023-12-09 22:27] VITALS: BP 147/96; PULSE 91; RESP 18; TEMP 36.3; O2SAT 91
[2023-12-09] MEDS: 0.9% Normal Saline (1000mL) 1,000 ML 999 ML IV (23:00)
[2023-12-09 23:07] VITALS: PULSE 88; RESP 18; O2SAT 96
--- NOTE | 2023-12-09 23:11 | CT_ITS ---
EXAM: CT LUMBAR SPINE WITH INTRAVENOUS CONTRAST CLINICAL INDICATION: BACK PAIN X 2 DAYS. HX OF BACK SURGERY WITH INFECTION TECHNIQUE: Helically acquired images were obtained of the lumbar spine with intravenous contrast. 2D reformats were reviewed. This CT exam was performed using one or more of the following dose reduction techniques: automated exposure control, adjustment of the mA and/or kV according to patient size, and/or use of iterative reconstruction technique. CONTRAST: 100ML ISOVUE 370 RADIATION DOSE: CTDIvol = 14.59 mGy, DLP = 460.42 mGy-cm. COMPARISON: Recent prior CT lumbar spine October 24, 2023. FINDINGS: VERTEBRAE: Similar degree of straightening of the usual lordotic curvature and similar mild levoscoliosis centered at L3. Similar appearance of prominent anterior discontinuous spondylosis and anterior bulging disc and soft tissue at L4-5. Straightening of the usual lordotic curvature. Postoperative changes posteriorly with resection of posterior elements at L3 and L4. No intraspinous or paraspinous enhancement or abscess on this unenhanced exam. Compared to prior unenhanced exam. No visible endplate erosions at levels other than at L4-5. /SPINAL CANAL/NEURAL FORAMINA: Marked disc space narrowing at L3-4, moderate narrowing at L2-3 and L4-5. Similar appearance of bony erosions of the opposing vertebral body endplates at L4-5. No increased size of the erosions but mild increased sclerosis around the multiple endplate erosions suggesting some early healing and reactive bone. Similar minimal endplate sclerosis posteriorly at the superior endplate of S1. VASCULATURE: Visualized abdominal aorta is not dilated. LYMPH NODES: Unremarkable. No retroperitoneal adenopathy. CT/Spine Lumbar WITH Contrast IMPRESSION: Advanced degenerative changes. Similar straightening of the usual lordotic curvature and levoscoliosis. Similar degree in size of multifocal bony erosions of the opposing vertebral body endplates at L4-5, likely due to indolent and actively treated osteomyelitis-discitis. Mild surrounding increased bony sclerosis around the erosions suggesting early healing-reactive bone formation. They are not yet healed. No new erosions or significant change in surrounding soft tissues. No enhancing paraspinous or intraspinous abscess. Electronically Signed: Rebecca Woodward MD at 23:58 EDT ,
[2023-12-09] MEDS: Ceftriaxone 2 GM in 0.9% Normal Saline (50mL MB+) 50 ML IV (23:16)
[2023-12-09] MEDS: Vancomycin HCl 2,000 MG in 0.9% Normal Saline (500mL Bag) 500 ML 250 MG IV (23:25)
[2023-12-10] VITALS (8 sets, daily range): BP systolic 123–154; BP diastolic 81–98; PULSE 86–103; RESP 16–19; TEMP 36.6–36.8; O2SAT 96–100; BMI 24.7
--- NOTE | 2023-12-10 00:14 | HP.PCM.HOS_ITS ---
HPI - General General Date of Admission: 12/10/23 Date of Service: 12/10/23 Chief Complaint: Recurrent low back pain with recent history of discitis HPI Narrative JARET FIGUEROA, is a 68 M who presented to [facility] ED on 12/09 with recurrent low back pain. Patient had a left lumbar laminectomy L4-5 with discectomy and removal of ligamentum flavum done here by orthopedics on 07/18. He tolerated the procedure well, was discharged home on 07/20 without issue. He unfortunately was hospitalized again here from 10/20-10/25 with worsening back pain. Was found on lumbar MRI on 10/22 to have vertebral osteomyelitis and discitis of L4-5. Notably had no epidural abscess at that time. Had aspiration of disc/bone on 10/24 with orosco cultures sent that were negative. ID followed, patient had PICC line placed and completed 6-week course of IV vancomycin and ceftriaxone with stop date on 12/02. Patient had PICC removed on 12/04. He then presented to the ED today with worsening low back pain. I saw patient at the bedside in the ED. Patient was sitting up in bed and conversing normally. He did appear to be in some pain and discomfort when I saw him. Patient states that the pain in his back has been bad dating back to May of last year when he states this all started. Has had times of better relief of pain but is constantly in some pain. States that after the PICC was removed 5 days ago, he felt like his low back pain was worsening again. He denies any fevers or chills associated with this. He lives at home with his and has never required rehab study placement after any hospitalizations. However, states that he is having significant difficulty with getting up and moving around due to the persistent pain. He does state that the pain seems to wrap around to his right lower back and down his right leg down to the knee. He did mention that he had a small fall onto his knees a few weeks ago at home. There is a very small abrasion noted on the left knee. He denies any significant hip or knee pain after the fall but generally states his right hip and knee have continued to be sore since then. He states the pain medication has been mildly helpful for him. Labs in the ED were notable for a mild JUNI with creatinine 1.52 from baseline around 1.1-1.2, as well as ESR 32 and CRP 26. ESR notably was stable between 9- 18 on 3 recent lab draws. WBC count was normal at 6. Patient has been afebrile and hemodynamically stable since arrival to the ED. CT lumbar spine with IV contrast showed similar findings to previous CT imaging with no acute changes. Notably his CT lumbar spine in October was fairly benign but MRI lumbar spine showed findings consistent with osteomyelitis/discitis. Given patient's complicated recent history and worsening low back pain, he was admitted for further management. FOR[facility]LY [facility] Medical History (Updated 12/10/23 @ 04:[address] Giuliano Pacheco, DO) Agent orange exposure Alcohol use Ambulates with cane Arthritis Arthropathy of cervical facet joint Asthma Atherosclerotic heart disease of [place] coronary artery without angina pectoris Back pain Bilateral primary osteoarthritis of knee Bilirubinuria BPH w urinary obs/LUTS Cancer Cardiology follow-up encounter Cervical spondylosis Chondromalacia of both patellae Chondromalacia, left knee Chondromalacia, right knee Contact with or exposure to other viral diseases COVID-19 virus detected (11/19/20) Degeneration of cervical disc without myelopathy Degeneration of intervertebral disc of lumbosacral region Diabetes Essential (primary) hypertension Fibromyalgia Fusion of spine, cervical region High cholesterol (~08/21/23) History of echocardiogram History of IBS History of pain when walking History of steroid therapy History of stress test Hyperlipemia Injury of head and neck Left knee DJD Lumbosacral radiculopathy at L5 Nonrheumatic aortic (valve) stenosis with insufficiency Obesity Opioid dependence Prostate disease Radiculopathy of lumbosacral region Restless legs Right knee DJD Shortness of breath on exertion Smokeless tobacco use Spinal stenosis of lumbosacral region Spondylosis of lumbosacral region without myelopathy or radiculopathy Syncope Tear of medial meniscus of right knee Tension headache Type 2 diabetes mellitus Wears hearing aid Home Medications aspirin 81 mg tablet,delayed release 81 mg PO DAILY HEART HEALTH 12/23/15 [History Last Taken 11/01/23] multivitamin 1 tab PO DAILY supplement 07/09/19 [History Last Taken 11/01/23] gabapentin 100 mg capsule 200 mg PO TID neuropathy 05/14/20 [History Last Taken 11/01/23] naproxen sodium 220 mg capsule (Aleve) 220 mg PO BID PRN Pain 02/04/22 [History Last Taken 11/01/23] albuterol sulfate 90 mcg/actuation aerosol inhaler 1 - 2 puff inhalation Q4H PRN PRN Wheezing #8.5 grams 04/21/22 [Rx Last Taken Unknown] handicap placard #1 ea 04/21/22 [Rx Last Taken Unknown] blood sugar diagnostic (FreeStyle Lite Strips) #100 ea 09/15/22 [Rx Last Taken Unknown] blood-glucose meter (FreeStyle Lite Meter kit) #1 ea 09/15/22 [Rx Last Taken Unknown] fluticasone propionate 50 mcg/actuation nasal spray,suspension 1 - 2 spray intranasal BID PRN allergies, congestion #16 grams 04/27/23 [Rx Last Taken 10/31/23] metformin 500 mg tablet 500 mg PO BID DIABETES #180 tabs 04/27/23 [Rx Last Taken 11/01/23] linaclotide 72 mcg capsule 72 mcg PO DAILY IBS #90 caps 06/27/23 [Rx Last Taken 11/01/23] acetaminophen 500 mg capsule 1,000 mg PO Q6H PRN pain 07/18/23 [History Last Taken 07/17/23 18:00] atorvastatin 40 mg tablet 40 mg PO QHS CHOLESTEROL #90 tabs 08/21/23 [Rx Last Taken 11/01/23] omeprazole 40 mg capsule,delayed release 40 mg PO DAILY PRN Reflux #30 caps 08/21/23 [Rx Last Taken 11/01/23] trazodone 50 mg tablet 50 - 100 mg (1 - 2 x 50 mg) PO QHS sleep #90 tabs 08/21/23 [Rx Last Taken 10/31/23] ondansetron 4 mg disintegrating tablet 4 mg PO Q6H PRN nausea and vomiting #20 tabs 10/03/23 [Rx Last Taken Unknown] oxycodone 5 mg tablet 7.5 mg PO TID PRN PRN pain 10/21/23 [History Last Taken 11/01/23] ceftriaxone 2 gram intravenous solution 2 g IV Q24H 38 days 10/26/23 [Rx Last Taken 10/31/23] Allergy/AdvReac Type Severity Reaction Status Date / Time adhesive tape Allergy Rash Verified 12/09/23 21:08 sertraline [From Zoloft] AdvReac Unknown Verified 12/09/23 21:08 Family History Brother Heart disease Myocardial infarction 60's CAD (coronary artery disease) Father Myocardial infarction 65 CAD (coronary artery disease) Mother HLD (hyperlipidemia) when son was 16 following MVA, healthy aside HLD. Surgical History H/O cervical spine surgery (08/2020) H/O coronary artery bypass surgery (09/14/11) History of back surgery History of carpal tunnel release History of herniorrhaphy History of lateral meniscus repair of right knee (~2021) History of left heart catheterization (09/09/11) Hx laparoscopic cholecystectomy (~11/2022) Hx of bilateral cataract extraction S/P laminectomy Status post discectomy for herniated nucleus pulposus Social History household members: spouse Smoking Status: Never smoker Smokeless tobacco user: chewing tobacco alcohol intake: current alcohol intake frequency: a few times a month substance use type: does not use caffeine: Yes Type: coffee Number of servings: 2 ROS Constitutional Constitutional: Reports weakness; Denies chills, fatigue or fever(s) Cardiovascular Cardiovascular: Denies chest pain Respiratory/Chest Respiratory/Chest: Denies shortness of breath at rest Gastrointestinal Gastrointestinal: Denies abdominal pain, constipation or diarrhea Genitourinary Genitourinary: Denies dysuria Musculoskeletal Musculoskeletal: Reports arthralgias, back pain and joint pain; Denies joint swelling or myalgias Neurologic Neurologic: Reports abnormal gait; Denies dizziness, focal weakness, numbness, paresthesias or tingling Vital Signs Vital Signs Vital Signs: 12/09/23 21:08 12/09/23 22:27 12/09/23 23:07 Temperature 98.3 F 97.4 F L Temperature Source Oral Pulse Rate 119 H 91 88 Respiratory Rate 18 18 18 Blood Pressure 118/98 H 147/96 H Blood Pressure Mean 104 113 Pulse Ox 96 91 96 Oxygen Delivery Method Room Air Room Air Weight Weight: 78.3 kg Body Mass Index (BMI) 24.7 Physical Exam Const alert and oriented x3 Constitutional Narrative: Elderly male, sitting up in bed, appears to be in some pain and discomfort due to his low back pain, otherwise conversing normally. General Appearance: cooperative and comfortable HEENT normocephalic, head/scalp atraumatic, hearing grossly normal bilaterally and nasal mucous membranes and turbinates normal Eyes PERRL, EOMs intact bilaterally and conjunctivae normal Neck full ROM Chest inspection of chest normal Resp normal respiratory effort, normal air movement, no use of accessory muscles and clear to auscultation bilaterally Cardio regular rate, regular rhythm, no murmurs and peripheral pulses 2+ throughout GI normal to inspection, nondistended, normoactive bowel sounds, soft to palpation, non-tender and non-distended Back/Spine Back/Spine Narrative: Low back tenderness noted fairly diffusely on palpation of lumbar vertebra across low right side of back. No tenderness to palpation in right hip or right knee. Very minor abrasion noted on left knee, no abnormalities on visual exam of right hip or knee. No visual abnormalities of low back. Did not attempt significant motion with the patient. Extremity normal to inspection and no pedal edema Skin no rashes or lesions noted Neuro moves all extremities Speech: speech normal Psych mental status grossly normal Mood & Affect: anxious Results Lab / Micro Data 12/09/23 21:37 12/09/23 21:37 Labs: Laboratory Results - last 24 hr 12/09/23 21:37: WBC 6.1, RBC 3.71 L, Hgb 10.9 L, Hct 33.0 L, MCV 88.9, MCH 29.4, MCHC 33.0, RDW Std Deviation 44.4 H, RDW Coeff of Frankie 13.5, Plt Count 278, MPV 8.2, Immature Gran % (Auto) 0.200, Neut % (Auto) 62.5, Lymph % (Auto) 22.6, [place] % (Auto) 9.7, Eos % (Auto) 4.3, Baso % (Auto) 0.7, Absolute Neuts (auto) 3.8, Absolute Lymphs (auto) 1.38, Nucleated RBC % 0, ESR 32 H, Sodium 138, Potassium 4.0, Chloride 105, Carbon Dioxide 26.0, Anion Gap 7, BUN 31 H, Creatinine 1.52 H , Estim Creat Clear Calc 46.69, Est GFR (MDRD) Af Amer 59 L, Est GFR (MDRD) Non- Af 48 L, BUN/Creatinine Ratio 20.4 H, Glucose 128 H, Calcium 9.4, C-React Prot Ext Range 26.80 H Imaging Radiology Impression Lumbar Spine CT 12/09/23 23:11 IMPRESSION: Advanced degenerative changes. Similar straightening of the usual lordotic curvature and levoscoliosis. Similar degree in size of multifocal bony erosions of the opposing vertebral body endplates at L4-5, likely due to indolent and actively treated osteomyelitis-discitis. Mild surrounding increased bony sclerosis around the erosions suggesting early healing-reactive bone formation. They are not yet healed. No new erosions or significant change in surrounding soft tissues. No enhancing paraspinous or intraspinous abscess. Electronically Signed: Rebecca Woodward MD at 23:58 EDT , Assessment & Plan Assessment/Plan (1) Recurrent low back pain: (2) History of discitis: (3) JUNI (acute kidney injury): (4) Debility: PLAN: Plan Patient is a 68-year-old male who presented [facility] ED on 12/10/2023 with recurrent low back pain. 1. Recurrent low back pain, recent history of L4-5 laminectomy complicated by discitis/osteomyelitis, debility ? Admit under inpatient status to [facility]. MRI lumbar spine with and without IV contrast ordered. Was given one-time doses of antibiotics in the ED, will hold on further antibiotics for now until MRI results. Will await MRI result prior to orthopedic consult. Pain control with scheduled Tylenol, oxycodone as needed and IV Dilaudid as needed. PT/OT/case management consulted. 2. Mild JUNI ? Creatinine 1.52 on admit, recent baseline around 1.1-1.2. Suspect mild prerenal JUNI due to recent poor p.o. intake. IV fluids given in the ED. Follow-up a.m. BMP and urine output. Chronic medical conditions: ? History of CAD s/p CABG/hyperlipidemia: Continue home aspirin and statin. ? GERD: Continue home PPI as needed. ? Tobacco dependence: Encouraged cessation. Nicotine replacement therapy available as needed. ? Type 2 diabetes mellitus: Home regimen of metformin 500 mg twice daily. Blood glucose 128 on admit. Recent A1c 6.4%. Sliding scale insulin with meals ordered. ? Neuropathy: Continue home gabapentin. ? Asthma: Stable on room air. Continue home inhalers as needed. DVT prophylaxis: Heparin subcu CODE STATUS: Full code, verified Expected disposition: TBD Total clinical time spent by myself addressing the patient's medical issues, reviewing all the data, and collaborating with patient's care team: 75 minutes. Charges/Coding Visit Charges Inpatient E&M: 70552 Init Hosp L3
[2023-12-10] MEDS: HYDROmorphone 1 MG/ML Syringe IV (00:15)
[2023-12-10] MEDS: oxyCODONE 5 MG Tablet PO ×3 (01:19→21:11)
[2023-12-10] MEDS: traZODone 50 MG Tablet PO (01:19)
[2023-12-10] MEDS: HYDROmorphone 0.5 MG/0.5 ML SYRINGE IV (04:14)
[2023-12-10] MEDS: Acetaminophen 500 MG Tablet 1000 MG PO ×3 (05:16→21:08)
[2023-12-10] MEDS: Gabapentin 100 MG Capsule 200 MG PO ×3 (05:16→21:06)
[2023-12-10 05:41] LABS: Bedside Glucose 129 mg/dL (74-106)
[2023-12-10 05:42] LABS: Hematocrit 32.5 % (40-54); Hemoglobin 10.5 g/dL (13.0-16.5); Mean Corp Hgb Conc 32.3 g/dL (32-36); Mean Corpuscular Hgb 28.9 pg (27.0-32.0); Mean Corpuscular Volume 89.5 fL (80-94); Mean Platelet Vol. 8.2 fl (6.2-12.0); Platelet Count 273 K/mm3 (150-450); RBC Distribution Width CV 13.4 % (11.6-14.6); RBC Distribution Width SD 44.5 fl (35.1-43.9); Red Blood Count 3.63 M/mm3 (4.6-6.2); White Blood Count 5.7 K/mm3 (4.4-11.0)
[2023-12-10 06:06] LABS: Anion Gap 6 (5-15); BUN 23 mg/dL (7-18); Calcium,Total 8.9 mg/dL (8.5-10.1); Chloride 105 mmol/L (98-107); Creatinine, Serum 1.21 mg/dL (0.70-1.30); EST Glomerular Filtration Rate 63 mL/min (>60); Est Glom Filt Rate - Afr Amer 76 mL/min (>60); Estimated Creatinine Clearance 58.65 ml/min; Glucose 129 mg/dL (74-106); Potassium 3.7 mmol/L (3.5-5.1); Sodium Level 138 mmol/L (136-145)
--- NOTE | 2023-12-10 07:44 | PCM.PN.HOSP ---
Reason for Visit Reason for Visit: Diagnoses Low back pain, unspecified (12/10/23) Acute kidney failure, unspecified (12/10/23) Other malaise (12/10/23) Personal history of other diseases of the musculoskeletal system and connective tissue (12/10/23) Objective Data Objective Data Vital Signs: Vital Signs Temp Pulse Resp BP Pulse Ox O2 Del Method 98.0 F 86 16 151/95 H 98 Room Air 12/10/23 04:21 12/10/23 04:21 12/10/23 04:21 12/10/23 04:21 12/10/23 04:21 12/10/23 04:21 Oxygen Delivery Method Room Air Weight: 172 lb 6.424 oz Body Mass Index (BMI) 24.7 Intake & Output: Intake and Output for Last 24 Hours 12/08/23 12/09/23 12/10/23 23:59 23:59 23:59 Intake Total 1890 / 1890 Balance 1890 / 1890 Lab / Micro Data 12/10/23 04:43 12/10/23 04:43 Labs: Laboratory Results - last 24 hr 12/09/23 21:37: WBC 6.1, RBC 3.71 L, Hgb 10.9 L, Hct 33.0 L, MCV 88.9, MCH 29.4, MCHC 33.0, RDW Std Deviation 44.4 H, RDW Coeff of Frankie 13.5, Plt Count 278, MPV 8.2, Immature Gran % (Auto) 0.200, Neut % (Auto) 62.5, Lymph % (Auto) 22.6, [place] % (Auto) 9.7, Eos % (Auto) 4.3, Baso % (Auto) 0.7, Absolute Neuts (auto) 3.8, Absolute Lymphs (auto) 1.38, Nucleated RBC % 0, ESR 32 H, Sodium 138, Potassium 4.0, Chloride 105, Carbon Dioxide 26.0, Anion Gap 7, BUN 31 H, Creatinine 1.52 H, Estim Creat Clear Calc 46.69, Est GFR (MDRD) Af Amer 59 L, Est GFR (MDRD) Non-Af 48 L, BUN/Creatinine Ratio 20.4 H, Glucose 128 H, Calcium 9.4, C-React Prot Ext Range 26.80 H 12/10/23 04:43: WBC 5.7, RBC 3.63 L, Hgb 10.5 L, Hct 32.5 L, MCV 89.5, MCH 28.9, MCHC 32.3, RDW Std Deviation 44.5 H, RDW Coeff of Frankie 13.4, Plt Count 273, MPV 8.2, Sodium 138, Potassium 3.7, Chloride 105, Carbon Dioxide 27.0, Anion Gap 6, BUN 23 H, Creatinine 1.21, Estim Creat Clear Calc 58.65, Est GFR (MDRD) Af Amer 76, Est GFR (MDRD) Non-Af 63, BUN/Creatinine Ratio 19.0, Glucose 129 H, Calcium 8.9 12/10/23 05:22: POC Glucose 129 H Radiography Diagnostic Testing: Radiology Impression Lumbar Spine CT 12/09/23 23:11 IMPRESSION: Advanced degenerative changes. Similar straightening of the usual lordotic curvature and levoscoliosis. Similar degree in size of multifocal bony erosions of the opposing vertebral body endplates at L4-5, likely due to indolent and actively treated osteomyelitis-discitis. Mild surrounding increased bony sclerosis around the erosions suggesting early healing-reactive bone formation. They are not yet healed. No new erosions or significant change in surrounding soft tissues. No enhancing paraspinous or intraspinous abscess. Electronically Signed: Rebecca Woodward MD at 23:58 EDT , Physical Exam Narrative Seen and examined. Patient denies any fall. Abdominal pain started spontaneously more severe on the right side of lumbar area. Pain with radiation to the right thigh lower extremity.Patient completed 6 weeks of IV vancomycin about 1 to 2 weeks ago for discitis. He follows spine surgeon [facility]. Seen and examined General: Alert, Oriented x3, Cooperative HEENT: Atraumatic, PERRLA, EOMI, Normocephalic Oral: No Gingival or Mucosal Lesions/ Ulcerations Neck: Supple, No JVD, Negative Carotid Bruits Chest wall/Lungs: Air entry diminished in bilateral lung bases. No crepitation/rhonchi Cardiovascular: Regular rate, Regular Rhythm, Normal S1, Normal S2, No M/G/R Abdomen: Bowel Sounds Present, Soft, Non Tender, Non-Distended : No dysuria. No renal angle tenderness. No suprapubic tenderness. Extremities: No edema, Capillary Refill Less than 3 Seconds Skin: No rashes, No breakdown Musculoskeletal/spine: Tenderness present on the lumbar spine and right-sided paraspinal muscles. SLR +10 degree of RLE elevation and 60 degrees of LAD. No tenderness in knee or hip joints. ROM severely limited at lumbar back and hip joints because of muscle spasm Neurological: Cranial nerves II-XII grossly intact, DTR 2+/4. No acute focal neurological deficit. Psych/Mental Status: Flat affect Assessment & Plan Assessment/Plan (1) Recurrent low back pain: (2) History of discitis: (3) JUNI (acute kidney injury): (4) Debility: PLAN: Plan Patient is a 68-year-old male who presented [facility] ED on 12/10/2023 with recurrent low back pain. 1. Recurrent low back pain, recent history of L4-5 laminectomy complicated by discitis/osteomyelitis, debility ? Admit under inpatient status to [facility]. MRI lumbar spine with and without IV contrast ordered. Was given one-time doses of antibiotics in the ED, will hold on further antibiotics for now until MRI results. await MRI result prior to orthopedic consult. Pain control with scheduled Tylenol, oxycodone as needed and IV Dilaudid as needed. PT/OT/case management consulted. 12/09: Patient had 6 weeks of IV antibiotics vancomycin, completed 1 to 2 weeks ago for discitis/osteomyelitis. ID consulted requested 2. Mild JUNI ? Creatinine 1.52 on admit, recent baseline around 1.1-1.2. Suspect mild prerenal JUNI due to recent poor p.o. intake. IV fluids given in the ED. Follow-up a.m. BMP and urine output. 12/09: BUNs/creatinine 23/1.21. Improvement in creatinine. BP elevated 151/87 without formal diagnosis of hypertension: Started on amlodipine 5 mg daily. Patient will need home or ambulatory BP monitoring to diagnose hypertension in the outpatient to be followed by PCP. Chronic medical conditions: ? History of CAD s/p CABG/hyperlipidemia: Continue home aspirin and statin. ? GERD: Continue home PPI as needed. ? Tobacco dependence: Encouraged cessation. Nicotine replacement therapy available as needed. ? Type 2 diabetes mellitus: Home regimen of metformin 500 mg twice daily. Blood glucose 128 on admit. Recent A1c 6.4%. Sliding scale insulin with meals ordered. ? Neuropathy: Continue home gabapentin. ? Asthma: Stable on room air. Continue home inhalers as needed. DVT prophylaxis: Heparin subcu CODE STATUS: Full code, verified Expected disposition: TBD Plan of care discussed with the patient's near the bedside Clinical Impression(s) from Imaging Studies Lumbar Spine CT 12/09/23 23:11 IMPRESSION: Advanced degenerative changes. Similar straightening of the usual lordotic curvature and levoscoliosis. Similar degree in size of multifocal bony erosions of the opposing vertebral body endplates at L4-5, likely due to indolent and actively treated osteomyelitis-discitis. Mild surrounding increased bony sclerosis around the erosions suggesting early healing-reactive bone formation. They are not yet healed. No new erosions or significant change in surrounding soft tissues. No enhancing paraspinous or intraspinous abscess. Charges/Coding Visit Charges Inpatient E&M: 07494 Subs Hosp L2
[2023-12-10] MEDS: Polyethylene Glycol 3350 17 GM PACKET PO (08:36)
[2023-12-10] MEDS: Heparin Injection (Vial) 5,000 UNIT/ML VIAL 5000 UNIT SC ×2 (08:36→21:07)
[2023-12-10] MEDS: Senna Tablet 1 TABLET PO ×2 (08:37→21:08)
[2023-12-10] MEDS: Multivitamins,Therapeutic Tablet 1 TABLET PO (08:37)
[2023-12-10] MEDS: Aspirin E.C. 81 MG Tablet PO (08:37)
[2023-12-10 11:34] LABS: Bedside Glucose 144 mg/dL (74-106)
[2023-12-10] MEDS: Pantoprazole Sodium 40 MG Tablet PO (13:48)
[2023-12-10] MEDS: Baclofen 10 MG Tablet PO ×2 (13:48→23:36)
[2023-12-10] MEDS: amLODIPine 5 MG Tablet PO (13:49)
[2023-12-10] MEDS: 0.9% Saline Lock 10 ML Syringe IV (13:50)
--- NOTE | 2023-12-10 16:52 | NURSING ---
Pt voided twice in the last 6hrs. Pt was just up to void and this RN bladder scanned pt for 35cc.
[2023-12-10 17:10] LABS: Bedside Glucose 99 mg/dL (74-106)
[2023-12-10] MEDS: Atorvastatin Calcium 40 MG Tablet PO (21:07)
[2023-12-10 22:07] LABS: Bedside Glucose 136 mg/dL (74-106)
--- NOTE | 2023-12-11 00:23 | MRI_ITS ---
STUDY: MRI LUMBAR SPINE WITH AND WITHOUT CONTRAST REASON FOR EXAM: Male, 68 years old. Recent h/o L4-5 discitis, recurrent back pain TECHNIQUE: Standardized fat and water weighted pulse sequences were obtained in the sagittal and axial planes. IV 15ml Clariscan was administered for the contrast portion of the examination. COMPARISON: CT December 09, 2023. MRI October 23, 2023 FINDINGS: The generalized signal intensity of the osseous structures is intact. There is no compression fracture seen. There is moderate marrow edema and enhancement of the L4 and L5 vertebra. Normal lumbar lordosis. There is grade 1 retrolisthesis at L2-3. There is a levoscoliosis of the lumbar spine. Normal conus medullaris that terminates at the L1 level. T12-L1: Normal endplates. Normal disc height, hydration and morphology. Normal bilateral facet joints. Normal central canal and bilateral lateral recesses. Normal bilateral intervertebral neural foramina. L1-2: Mild spurring on the left. Normal bilateral facet joints. Normal central canal and bilateral lateral recesses. Normal bilateral intervertebral neural foramina. L2-3: Disc space narrowing on the right. Disc bulge and spurring. Facet spurring. There is laminectomy. No canal stenosis. Bilateral foraminal narrowing. L3-4: Disc space narrowing on the right. Disc bulge and spurring with right paracentral disc protrusion. Facet spurring. There is laminectomy. No canal stenosis. Bilateral foraminal narrowing. L4-5: Disc space narrowing with endplate change and irregularity. Disc bulge and spurring. Facet spurring. There is laminectomy. Mild canal stenosis. Bilateral foraminal narrowing and encroachment. L5-S1: Disc bulge. Facet spurring. No canal stenosis. Mild left foraminal narrowing. Normal visualized sacral ala. There is postoperative change in the paraspinal soft tissues. MRI/Spine Lumbar W/WO Contrast IMPRESSION: Discitis osteomyelitis at L4-5. No focal abscess or fluid collection. Scoliosis with degenerative and postoperative change. Multilevel foraminal narrowing. Electronically Signed: Tonny Rouse MD at 18:39 EDT ,
[2023-12-11] MEDS: Gabapentin 100 MG Capsule 200 MG PO ×3 (05:07→21:10)
[2023-12-11] MEDS: oxyCODONE 5 MG Tablet PO ×4 (05:07→23:31)
[2023-12-11] MEDS: Acetaminophen 500 MG Tablet 1000 MG PO ×3 (05:08→21:11)
[2023-12-11 05:14] VITALS: BP 107/85; PULSE 78; RESP 16; TEMP 36.8; O2SAT 97
[2023-12-11 05:34] LABS: Bedside Glucose 95 mg/dL (74-106)
[2023-12-11 08:34] VITALS: BP 151/104; PULSE 105; RESP 18; TEMP 36.3; O2SAT 97
[2023-12-11] MEDS: Baclofen 10 MG Tablet PO ×2 (08:40→23:31)
[2023-12-11] MEDS: Multivitamins,Therapeutic Tablet 1 TABLET PO (08:41)
[2023-12-11] MEDS: Heparin Injection (Vial) 5,000 UNIT/ML VIAL 5000 UNIT SC ×2 (08:41→21:10)
[2023-12-11] MEDS: Aspirin E.C. 81 MG Tablet PO (08:41)
[2023-12-11 10:29] VITALS: BP 150/101; PULSE 88; RESP 18; O2SAT 98
[2023-12-11] MEDS: HYDROmorphone 0.5 MG/0.5 ML SYRINGE IV (10:33)
--- NOTE | 2023-12-11 10:59 | PN.HOSP_ITS ---
Reason for Visit Reason for Visit: Diagnoses Low back pain, unspecified (12/10/23) Acute kidney failure, unspecified (12/10/23) Other malaise (12/10/23) Personal history of other diseases of the musculoskeletal system and connective tissue (12/10/23) Objective Data Objective Data Vital Signs: Vital Signs Temp Pulse Resp BP Pulse Ox O2 Del Method 97.4 F L 88 18 150/101 H 98 Room Air 12/11/23 08:34 12/11/23 10:29 12/11/23 10:29 12/11/23 10:29 12/11/23 10:29 12/11/23 10:29 Oxygen Delivery Method Room Air Weight: 172 lb 6.424 oz Body Mass Index (BMI) 24.7 Intake & Output: Intake and Output for Last 24 Hours 12/09/23 12/10/23 12/11/23 23:59 23:59 23:59 Intake Total 2550 / 2550 400 / 400 Balance 2550 / 2550 400 / 400 Lab / Micro Data 12/10/23 04:43 12/10/23 04:43 Labs: Laboratory Results - last 24 hr 12/10/23 11:10: POC Glucose 144 H 12/10/23 16:41: POC Glucose 99 12/10/23 21:03: POC Glucose 136 H 12/11/23 05:12: POC Glucose 95 Physical Exam Narrative Seen and examined. Patient and he walked 3 rounds of nursing station. Back pain is much improved. Patient had MRI in the morning but report not available yet Patient denies any fall. Lower back pain started spontaneously more severe on the right side of lumbar area. Pain with radiation to the right thigh lower extremity.Patient completed 6 weeks of IV vancomycin about 1 to 2 weeks ago for discitis. He follows spine surgeon [facility]. Seen and examined General: Alert, Oriented x3, Cooperative HEENT: Atraumatic, PERRLA, EOMI, Normocephalic Oral: No Gingival or Mucosal Lesions/ Ulcerations Neck: Supple, No JVD, Negative Carotid Bruits Chest wall/Lungs: Air entry diminished in bilateral lung bases. No crepitation/rhonchi Cardiovascular: Regular rate, Regular Rhythm, Normal S1, Normal S2, No M/G/R Abdomen: Bowel Sounds Present, Soft, Non Tender, Non-Distended : No dysuria. No renal angle tenderness. No suprapubic tenderness. Extremities: No edema, Capillary Refill Less than 3 Seconds Skin: No rashes, No breakdown Musculoskeletal/spine: Very mild tenderness present on the lumbar spine and right-sided paraspinal muscles. No pain or tenderness even 30 degree of SLR test No tenderness in knee or hip joints. ROM severely limited at lumbar back and hip joints because of muscle spasm Neurological: Cranial nerves II-XII grossly intact, DTR 2+/4. No acute focal neurological deficit. Psych/Mental Status: Flat affect Assessment & Plan Assessment/Plan (1) Recurrent low back pain: (2) History of discitis: (3) JUNI (acute kidney injury): (4) Debility: PLAN: Plan Patient is a 68-year-old male who presented [facility] ED on 12/10/2023 with recurrent low back pain. 1. Recurrent low back pain, recent history of L4-5 laminectomy complicated by discitis/osteomyelitis, debility ? Admit under inpatient status to [facility]. MRI lumbar spine with and without IV contrast ordered. Was given one-time doses of antibiotics in the ED, will hold on further antibiotics for now until MRI results. await MRI result prior to orthopedic consult. Pain control with scheduled Tylenol, oxycodone as needed and IV Dilaudid as needed. PT/OT/case management consulted. 12/09: Patient had 6 weeks of IV antibiotics vancomycin, completed 1 to 2 weeks ago for discitis/osteomyelitis. ID consulted requested 12/10: Patient had MRI ordered. Official report not available. Acute discitis/osteomyelitis needs to be ruled out before discharge. 2. Mild JUNI ? Creatinine 1.52 on admit, recent baseline around 1.1-1.2. Suspect mild prerenal JUNI due to recent poor p.o. intake. IV fluids given in the ED. Follow-up a.m. BMP and urine output. 12/09: BUNs/creatinine 23/1.21. Improvement in creatinine. 12/10: BUNs/creatinine improved to 23/1.21. His creatinine runs around 1.10- 1.25. I think he achieved his baseline JUNI resolved. BP elevated 151/87 without formal diagnosis of hypertension: Started on amlodipine 5 mg daily. Patient will need home or ambulatory BP monitoring to diagnose hypertension in the outpatient to be followed by PCP. Chronic medical conditions: ? History of CAD s/p CABG/hyperlipidemia: Continue home aspirin and statin. ? GERD: Continue home PPI as needed. ? Tobacco dependence: Encouraged cessation. Nicotine replacement therapy available as needed. ? Type 2 diabetes mellitus: Home regimen of metformin 500 mg twice daily. Blood glucose 128 on admit. Recent A1c 6.4%. Sliding scale insulin with meals ordere d. ? Neuropathy: Continue home gabapentin. ? Asthma: Stable on room air. Continue home inhalers as needed. DVT prophylaxis: Heparin subcu CODE STATUS: Full code, verified Expected disposition: TBD Plan of care discussed with the patient's near the bedside Clinical Impression(s) from Imaging Studies Lumbar Spine CT 12/09/23 23:11 IMPRESSION: Advanced degenerative changes. Similar straightening of the usual lordotic curvature and levoscoliosis. Similar degree in size of multifocal bony erosions of the opposing vertebral body endplates at L4-5, likely due to indolent and actively treated osteomyelitis-discitis. Mild surrounding increased bony sclerosis around the erosions suggesting early healing-reactive bone formation. They are not yet healed. No new erosions or significant change in surrounding soft tissues. No enhancing paraspinous or intraspinous abscess. Charges/Coding Visit Charges Inpatient E&M: 38166 Subs Hosp L2
[2023-12-11 12:08] LABS: Bedside Glucose 103 mg/dL (74-106)
--- NOTE | 2023-12-11 13:02 | CON.PCM.ID_ITS ---
Assessment & Plan Assessment/Plan (1) History of discitis: (2) History of osteomyelitis: PLAN: Had lumbar laminectomy and discectomy L4-5 on 07/18/[address] Godoy here. After that, developed progressive pain, new fever and confusion. MRI shows suspected discitis/osteo. 10/25/23 had aspiration of disc/bone with orosco culture sent. No organism seen on gram stain, cxs finalized as neg. Discharged with picc, 6 weeks iv vanc/ceftriaxone with stop date 12/03/23 with weekly labs. Did well as outpt, followed up with ID, completed abx last week and picc was removed. Repeat MRI pending. No fever, normal wbc. CT shows osteo, but bone changes from osteo are expected to be present for several months even after successful treatment. Agree with continuing to monitor off of abx, ok for d/c home as long as MRI shows no acute changes. Will follow, thank you HPI Consult Data Date of Consult: 12/11/23 HPI Narrative Reason for Consultation: back pain HPI Narrative: JARET FIGUEROA, is a 68 M with admit 10/2023. Had lumbar laminectomy and discectomy L4-5 on 07/18/[address] Godoy here. After that, developed progressive pain, new fever and confusion. MRI shows suspected discitis/osteo. 10/25/23 had aspiration of disc/bone with orosco culture sent. No organism seen on gram stain, cxs finalized as neg. Discharged with picc, 6 weeks iv vanc/ceftriaxone with stop date 12/03/23 with weekly labs. Did well as outpt, followed up with ID, completed abx last week and picc was removed. 12/06 started to have worsened pain, came to ED 12/09 with ongoing low back pain. No fever or chills, no n/v/d. CT and MRI done. Spine incision well healed. Full ROS performed and neg except as noted above. [facility] Medical History Agent orange exposure Alcohol use Ambulates with cane Arthritis Arthropathy of cervical facet joint Asthma Atherosclerotic heart disease of [place] coronary artery without angina pectoris Back pain Bilateral primary osteoarthritis of knee Bilirubinuria BPH w urinary obs/LUTS Cancer Cardiology follow-up encounter Cervical spondylosis Chondromalacia of both patellae Chondromalacia, left knee Chondromalacia, right knee Contact with or exposure to other viral diseases COVID-19 virus detected (11/19/20) Degeneration of cervical disc without myelopathy Degeneration of intervertebral disc of lumbosacral region Diabetes Essential (primary) hypertension Fibromyalgia Fusion of spine, cervical region High cholesterol (~08/21/23) History of echocardiogram History of IBS History of pain when walking History of steroid therapy History of stress test Hyperlipemia Injury of head and neck Left knee DJD Lumbosacral radiculopathy at L5 Nonrheumatic aortic (valve) stenosis with insufficiency Obesity Opioid dependence Prostate disease Radiculopathy of lumbosacral region Restless legs Right knee DJD Shortness of breath on exertion Smokeless tobacco use Spinal stenosis of lumbosacral region Spondylosis of lumbosacral region without myelopathy or radiculopathy Syncope Tear of medial meniscus of right knee Tension headache Type 2 diabetes mellitus Wears hearing aid Home Medications aspirin 81 mg tablet,delayed release 81 mg PO DAILY HEART HEALTH 12/23/15 [History Last Taken 11/01/23] multivitamin 1 tab PO DAILY supplement 07/09/19 [History Last Taken 11/01/23] gabapentin 100 mg capsule 200 mg PO TID neuropathy 05/14/20 [History Last Taken 11/01/23] naproxen sodium 220 mg capsule (Aleve) 220 mg PO BID PRN Pain 02/04/22 [History Last Taken 11/01/23] albuterol sulfate 90 mcg/actuation aerosol inhaler 1 - 2 puff inhalation Q4H PRN PRN Wheezing #8.5 grams 04/21/22 [Rx Last Taken Unknown] handicap placard #1 ea 04/21/22 [Rx Last Taken Unknown] blood sugar diagnostic (FreeStyle Lite Strips) #100 ea 09/15/22 [Rx Last Taken Unknown] blood-glucose meter (FreeStyle Lite Meter kit) #1 ea 09/15/22 [Rx Last Taken Unknown] fluticasone propionate 50 mcg/actuation nasal spray,suspension 1 - 2 spray intranasal BID PRN allergies, congestion #16 grams 04/27/23 [Rx Last Taken 10/31/23] metformin 500 mg tablet 500 mg PO BID DIABETES #180 tabs 04/27/23 [Rx Last Taken 11/01/23] linaclotide 72 mcg capsule 72 mcg PO DAILY IBS #90 caps 06/27/23 [Rx Last Taken 11/01/23] acetaminophen 500 mg capsule 1,000 mg PO Q6H PRN pain 07/18/23 [History Last Taken 07/17/23 18:00] atorvastatin 40 mg tablet 40 mg PO QHS CHOLESTEROL #90 tabs 08/21/23 [Rx Last Taken 11/01/23] omeprazole 40 mg capsule,delayed release 40 mg PO DAILY PRN Reflux #30 caps 08/21/23 [Rx Last Taken 11/01/23] trazodone 50 mg tablet 50 - 100 mg (1 - 2 x 50 mg) PO QHS sleep #90 tabs 08/21/23 [Rx Last Taken 10/31/23] ondansetron 4 mg disintegrating tablet 4 mg PO Q6H PRN nausea and vomiting #20 tabs 10/03/23 [Rx Last Taken Unknown] oxycodone 5 mg tablet 7.5 mg PO TID PRN PRN pain 10/21/23 [History Last Taken 11/01/23] ceftriaxone 2 gram intravenous solution 2 g IV Q24H 38 days 10/26/23 [Rx Last Taken 10/31/23] baclofen 10 mg tablet 10 mg PO TID PRN PRN muscle spasm 12/10/23 [History Last Taken Unknown] Allergy/AdvReac Type Severity Reaction Status Date / Time adhesive tape Allergy Rash Verified 12/09/23 21:08 sertraline [From Zoloft] AdvReac Unknown Verified 12/09/23 21:08 Family History Brother Heart disease Myocardial infarction 60's CAD (coronary artery disease) Father Myocardial infarction 65 CAD (coronary artery disease) Mother HLD (hyperlipidemia) when son was 16 following MVA, healthy aside HLD. Surgical History H/O cervical spine surgery (08/2020) H/O coronary artery bypass surgery (09/14/11) History of back surgery History of carpal tunnel release History of herniorrhaphy History of lateral meniscus repair of right knee (~2021) History of left heart catheterization (09/09/11) Hx laparoscopic cholecystectomy (~11/2022) Hx of bilateral cataract extraction S/P laminectomy Status post discectomy for herniated nucleus pulposus Social History household members: spouse Smoking Status: Never smoker Smokeless tobacco user: chewing tobacco alcohol intake: current alcohol intake frequency: a few times a month substance use type: does not use caffeine: Yes Type: coffee Number of servings: 2 Physical Exam Const alert, oriented x3 and no apparent distress General Appearance: cooperative HEENT normocephalic and head/scalp atraumatic Eyes PERRL and EOMs intact bilaterally Neck supple and No nodes Resp normal air movement and clear to auscultation bilaterally Cardio regular rate and regular rhythm GI soft to palpation, non-tender and non-distended Extremity General Extremity: Negative for edema Skin no rashes or lesions noted Neuro CN's II-XII intact bilaterally Lab / Micro Data Attestation: I reviewed the patient's lab results. 12/10/23 04:43 12/10/23 04:43 Labs: Laboratory Results - last 24 hr 12/10/23 16:41: POC Glucose 99 12/10/23 21:03: POC Glucose 136 H 12/11/23 05:12: POC Glucose 95 12/11/23 11:50: POC Glucose 103
[2023-12-11 14:27] VITALS: BP 137/83; PULSE 80; RESP 16; TEMP 36.8; O2SAT 96
--- NOTE | 2023-12-11 14:50 | CASEMGMT ---
MATIAS SAUER Assessment: Face to Face with pt for initial transition planning/care coordination assessment. RN CRISTIANE introduced self and role at [facility], pt voices understanding and consents to assessment. Pt laying in bed in no distress. Pt is A&O x4 and answers all questions appropriately at this time. Care providers, pharmacy, and demographics verified/updated. Admitting Dx: Recurrent back pain, Recent Hx of Discitis. PCP: Chema, pt recently started seeing the [facility] but unsure who PCP is. Specialists: Raul Godoy; PAOLA Wilkinson Preferred Pharmacy: [facility] Insurance: [employer] Medicare Prescription Benefit: yes LNOK: Alethea Bates - Living Arrangements: Pt lives at home with , pt states independent with ADLs and IADLs. Pt states he lives in a 2 story home with 1 step at entrance. Denies concerns at home. Transportation: Pt drives self and denies concerns with transportation. DME: Glucometer, cane, walker. HHC/SNF: Previously used [facility] HHC, denies Hx of SNF. Pt states no concerns with going home at time of dc. Pt states no further concerns/needs. CM to follow ID recs. Advised pt to ask CM if any further question/concerns/needs arise, voices understanding. Pt Goal: Home Plan: Home pending course of hospitalization. Hernandez SALCEDO CM
--- NOTE | 2023-12-11 15:38 | CHAPLAIN ---
Type of Pastoral Visit _x__ Initial Visit ___ Follow-up Visit ___ On-call Visit ___ General Patient Visit ___ Spiritual Assessment ___ Family Conference ___ Bereavement ___ Rapid Response ___ Code Blue ___ Other (describe below) Pastoral Care Referral From _x__ Patient ___ Family ___ Nurse ___ Physician ___ Sld Educational Aide ___ Machine Operator Hop Worker ___ Other (describe below) Sacrament/Intervention _x__ Active listening ___ Anointing ___ Church ___ Bereavement ___ Communion ___ Radha exploration ___ ___ Life review _x__ Prayer ___ Reconciliation ___ Sacrament of Sick _x__ Supportive presence ___ Wedding ___ Other (describe below) Pastoral Comments patient had recently returned from MRI and admitted to anxiety over the testing, pain he is experiencing, and waiting for answers; pt is talkative and welcomes the presence and prayers for comfort
[2023-12-11 16:43] LABS: Bedside Glucose 99 mg/dL (74-106)
[2023-12-11 18:36] VITALS: BP 144/85; PULSE 86; RESP 16; TEMP 36.7; O2SAT 95
[2023-12-11] MEDS: Senna Tablet 1 TABLET PO (18:43)
[2023-12-11] MEDS: Polyethylene Glycol 3350 17 GM PACKET PO (18:43)
[2023-12-11 20:03] VITALS: BP 157/88; PULSE 81; RESP 16; TEMP 36.8; O2SAT 97
[2023-12-11] MEDS: Atorvastatin Calcium 40 MG Tablet PO (21:10)
[2023-12-11] MEDS: Insulin Lispro 100 UNIT/ML INSULN.PEN SC (21:18)
[2023-12-11 22:11] LABS: Bedside Glucose 185 mg/dL (74-106)
[2023-12-12] MEDS: Gabapentin 100 MG Capsule 200 MG PO (04:53)
[2023-12-12] MEDS: Baclofen 10 MG Tablet PO (04:54)
[2023-12-12] MEDS: oxyCODONE 5 MG Tablet PO ×2 (04:54→11:31)
[2023-12-12] MEDS: Acetaminophen 500 MG Tablet 1000 MG PO (04:55)
[2023-12-12 04:57] VITALS: BP 157/68; PULSE 86; RESP 16; TEMP 36.8; O2SAT 97
[2023-12-12 05:52] LABS: Bedside Glucose 101 mg/dL (74-106)
[2023-12-12 07:17] VITALS: O2SAT 98
--- NOTE | 2023-12-12 09:08 | NURSING ---
pt up in [place] with therapy and had some dizziness and light-headed- pt also c/o for shooting pain like an ''''ice pick in his brain- resolved quickly and pt back to his chair - and very emotional about the episode that he states also happens at home occaionally- pt in chair and resting at this time bp was elevated - but pt was also moving his arms at that time- monitoring
[2023-12-12 09:49] VITALS: BP 157/91; PULSE 85; RESP 16; TEMP 36.8; O2SAT 97
[2023-12-12] MEDS: Aspirin E.C. 81 MG Tablet PO (09:51)
[2023-12-12] MEDS: Heparin Injection (Vial) 5,000 UNIT/ML VIAL 5000 UNIT SC (09:51)
[2023-12-12] MEDS: Multivitamins,Therapeutic Tablet 1 TABLET PO (09:51)
--- NOTE | 2023-12-12 10:28 | PCM.PN.ID ---
Physical Exam Narrative Pain is a little better, no fever Const alert and no apparent distress Resp normal air movement and clear to auscultation bilaterally Cardio regular rate and regular rhythm GI soft to palpation, non-tender and non-distended Skin no rashes or lesions noted ID ID: Route of nutrition/ use of supplements: [] Nutritional Intake: [] IV Site: [] Gan Catheter: [] Assessment & Plan Assessment/Plan (1) History of discitis: (2) History of osteomyelitis: PLAN: Had lumbar laminectomy and discectomy L4-5 on 07/18/[address] Godoy here. After that, developed progressive pain, new fever and confusion. MRI shows suspected discitis/osteo. 10/25/23 had aspiration of disc/bone with orosco culture sent. No organism seen on gram stain, cxs finalized as neg. Discharged with picc, 6 weeks iv vanc/ceftriaxone with stop date 12/03/23 with weekly labs. Did well as outpt, followed up with ID, completed abx last week and picc was removed. No fever, normal wbc. CT and MRI shows osteo, but bone changes from osteo are expected to be present for several months even after successful treatment. Agree with continuing to monitor off of abx, recommend he follow up with pain management and spine surgery. Will follow as needed
--- NOTE | 2023-12-12 11:57 | DCINST_ITS ---
Discharge Instructions Diet Discharge Diet: No restrictions Activity Discharge Activity: Return to Normal Activity Weight Bearing Status: Weight bearing as tolerated Dressing / Incision Call your doctor if you observe: Fever of 101 or Higher, Coldness, Increased Pain, Numbness or Tingling, Change in Color, Inability to urinate, Inability to have a bowel movement, Shortness of breath, Dizziness, Fainting spells, Swelling in the ankles, Chest pain, Prolonged hiccupping, Increased palpitations (irregular heartbeat) and Calf discomfort Follow Up Care When: IN 2 WEEKS Test Results: Test results from this visit will be discussed in further detail at your follow- up appointment, if applicable. Discharge Plan Admission Admit Date/Time: 12/10/23 00:16 Attending Provider: Ochoa Figueroa Primary Care Provider: Marlen Bear Consulting Providers: Giuliano Pacheco; Tarik Wilkinson Instructions Additional Instructions / Restrictions: Advised MiraLAX 17 g oral daily and senna S2 tablet twice daily as needed for constipation as patient is on oxycodone. Both medications are available [id number] Discharge Orders/Prescriptions Prescriptions: New metformin 500 mg tablet 500 mg PO BID 30 Days Qty: 60 2RF Rx Instructions: Start from 12/14/2023 Continued multivitamin Tablet 1 tab PO DAILY (DME) handicap placard See Rx Instructions .Route .MEDSUPPLY Qty: 1 0RF Rx Instructions: fatique , pain in right knee , oteoarathritis aspirin 81 MG tablet,delayed release (DR/EC) 81 mg PO DAILY gabapentin 100 MG capsule 200 mg PO TID baclofen 10 mg tablet 10 mg PO TID PRN PRN (Reason: muscle spasm) oxycodone 5 mg tablet 7.5 mg PO TID PRN PRN (Reason: pain) albuterol sulfate 90 mcg/actuation HFA aerosol inhaler 1 - 2 puff INHALATION Q4H PRN PRN (Reason: Wheezing) Qty: 8.5 3RF (DME) FreeStyle Lite Strips Strip See Rx Instructions .Route Qty: 100 3RF Rx Instructions: Twice daily (DME) blood-glucose meter [FreeStyle Lite Meter] Kit See Rx Instructions .Route Qty: 1 0RF Rx Instructions: Test twice daily fluticasone propionate 50 mcg/actuation spray,suspension 1 - 2 spray intranasal BID PRN (Reason: allergies, congestion) Qty: 16 3RF Rx Instructions: administer into each nostril; 2 sprays in each nostril for the first week linaclotide 72 mcg capsule 72 mcg PO DAILY Qty: 90 3RF atorvastatin 40 mg tablet 40 mg PO QHS Qty: 90 3RF Hold Instructions: 10/01/21- Myalgia and sleep issues omeprazole 40 mg capsule,delayed release(DR/EC) 40 mg PO DAILY PRN (Reason: Reflux) Qty: 30 1RF trazodone 50 mg tablet 50 - 100 mg PO QHS Qty: 90 3RF ondansetron 4 mg tablet,disintegrating 4 mg PO Q6H PRN (Reason: nausea and vomiting) Qty: 20 0RF Changed acetaminophen 500 mg capsule 1,000 mg PO Q8H PRN PRN (Reason: pain) Qty: 3 0RF Held naproxen sodium [Aleve] 220 mg capsule 220 mg PO BID PRN (Reason: Pain) Hold Instructions: Hold for 5 days as patient had JUNI. Discontinued ceftriaxone 2 gram recon soln 2 g IV Q24H 38 Days Rx Instructions: stop date 12/03/23. Dx: spine osteomyelitis. Weekly bmp, cbc, ESR, and vanc trough; fax to [phone]. Routine picc care per protocol. metformin 500 mg tablet 500 mg PO BID Qty: 180 3RF Referrals / Follow Up: Marlen Bear MD [Primary Care Provider] - Ventura Godoy DO [Med Staff - Active Staff] - Within 2 Weeks Dimas Chung MD [Med Staff - Active Staff] - Within 1 Month (For back pain) Disposition Disposition (needs filled in before D/C Order can be placed): Home, Self Care
--- NOTE | 2023-12-12 12:14 | PCM.DC.SUM ---
Providers Date of Admission: 12/10/23 Date of Discharge: 12/12/23 Primary Care Physician: Dr. Marlen Bear MD Consultations 12/10/23 11:11 Consult: Infectious Disease Routine Consulting Provider: Tarik Wilkinson Reason for Consult: Rec lumbar pain. Completed 6 wks of IV vancomycin for discitis, 1-2 wks ago EMERGENT Consult: No MD Notified: Yes Date Notified: 12/10/23 Time Notified: 11:11 Method of Notification: Text Reason For Visit: RECURRENT LOW BACK PAIN, RECENT HX OF DISCITIS Diagnosis Discharge Diagnosis (1) History of discitis: Status: Acute Code(s): Z87.39 - Personal history of other diseases of the musculoskeletal system and connective tissue (2) History of osteomyelitis: Status: Acute Code(s): Z87.39 - Personal history of other diseases of the musculoskeletal system and connective tissue Plan Patient is a 68-year-old male who presented [facility] ED on 12/10/2023 with recurrent low back pain. 1. Recurrent low back pain, recent history of L4-5 laminectomy complicated by discitis/osteomyelitis, debility ? Admit under inpatient status to [facility]. MRI lumbar spine with and without IV contrast ordered. Was given one-time doses of antibiotics in the ED, will hold on further antibiotics for now until MRI results. await MRI result prior to orthopedic consult. Pain control with scheduled Tylenol, oxycodone as needed and IV Dilaudid as needed. PT/OT/case management consulted. 12/09: Patient had 6 weeks of IV antibiotics vancomycin, completed 1 to 2 weeks ago for discitis/osteomyelitis. ID consulted requested 12/10: Patient had MRI ordered. Official report not available. Acute discitis/osteomyelitis needs to be ruled out before discharge. 12/11: On exam patient does not have point tenderness but he feels mild stiffness. SLR also negative at 60 degrees. Does not have clinical signs of discitis or osteomyelitis. MRI finding of discitis/osteomyelitis at L4-5 with no focal abscess or fluid collection. Discussed with ID. Radiological/MRI finding may last several months but clinically does not have osteomyelitis signs and symptoms. Advised to follow-up with the pain management and spine doctor Walt. Monitor off antibiotic. 2. Mild JUNI ? Creatinine 1.52 on admit, recent baseline around 1.1-1.2. Suspect mild prerenal JUNI due to recent poor p.o. intake. IV fluids given in the ED. Follow-up a.m. BMP and urine output. 12/09: BUNs/creatinine 23/1.21. Improvement in creatinine. 12/10: BUNs/creatinine improved to 23/1.21. His creatinine runs around 1.10-1.25. I think he achieved his baseline JUNI resolved. 12/11: Patient was advised to hold naproxen for 5 days. Follow with PCP most likely she will be discontinued. BP elevated 151/87 without formal diagnosis of hypertension: Started on amlodipine 5 mg daily. Patient will need home or ambulatory BP monitoring to diagnose hypertension in the outpatient to be followed by PCP. Chronic medical conditions: ? History of CAD s/p CABG/hyperlipidemia: Continue home aspirin and statin. ? GERD: Continue home PPI as needed. ? Tobacco dependence: Encouraged cessation. Nicotine replacement therapy available as needed. ? Type 2 diabetes mellitus: Home regimen of metformin 500 mg twice daily. Blood glucose 128 on admit. Recent A1c 6.4%. Sliding scale insulin with meals ordered. Patient on metformin, prescription for metformin given to start from 12/14/2023 ? Neuropathy: Continue home gabapentin. ? Asthma: Stable on room air. Continue home inhalers as needed. DVT prophylaxis: Heparin subcu CODE STATUS: Full code, verified Expected disposition: TBD Plan of care discussed with the patient's near the bedside Clinical Impression(s) from Imaging Studies Lumbar Spine CT 12/09/23 23:11 IMPRESSION: Advanced degenerative changes. Similar straightening of the usual lordotic curvature and levoscoliosis. Similar degree in size of multifocal bony erosions of the opposing vertebral body endplates at L4-5, likely due to indolent and actively treated osteomyelitis-discitis. Mild surrounding increased bony sclerosis around the erosions suggesting early healing-reactive bone formation. They are not yet healed. No new erosions or significant change in surrounding soft tissues. No enhancing paraspinous or intraspinous abscess. Medications at Discharge Home Medications aspirin 81 mg tablet,delayed release 81 mg PO DAILY HEART HEALTH 12/23/15 multivitamin 1 tab PO DAILY supplement 07/09/19 gabapentin 100 mg capsule 200 mg PO TID neuropathy 05/14/20 naproxen sodium 220 mg capsule (Aleve) 220 mg PO BID PRN Pain 02/04/22 albuterol sulfate 90 mcg/actuation aerosol inhaler 1 - 2 puff inhalation Q4H PRN PRN Wheezing #8.5 grams 04/21/22 handicap placard #1 ea 04/21/22 blood sugar diagnostic (FreeStyle Lite Strips) #100 ea 09/15/22 blood-glucose meter (FreeStyle Lite Meter kit) #1 ea 09/15/22 fluticasone propionate 50 mcg/actuation nasal spray,suspension 1 - 2 spray intranasal BID PRN allergies, congestion #16 grams 04/27/23 linaclotide 72 mcg capsule 72 mcg PO DAILY IBS #90 caps 06/27/23 atorvastatin 40 mg tablet 40 mg PO QHS CHOLESTEROL #90 tabs 08/21/23 omeprazole 40 mg capsule,delayed release 40 mg PO DAILY PRN Reflux #30 caps 08/21/23 trazodone 50 mg tablet 50 - 100 mg (1 - 2 x 50 mg) PO QHS sleep #90 tabs 08/21/23 ondansetron 4 mg disintegrating tablet 4 mg PO Q6H PRN nausea and vomiting #20 tabs 10/03/23 oxycodone 5 mg tablet 7.5 mg PO TID PRN PRN pain 10/21/23 baclofen 10 mg tablet 10 mg PO TID PRN PRN muscle spasm 12/10/23 acetaminophen 500 mg capsule 1,000 mg (2 x 500 mg) PO Q8H PRN PRN pain #3 caps 12/12/23 metformin 500 mg tablet 500 mg PO BID 1 month #60 tabs 12/12/23 Physical Exam Narrative Seen and examined. Patient walked 3 rounds of nursing station. Back pain is much improved. Seen and examined General: Alert, Oriented x3, Cooperative HEENT: Atraumatic, PERRLA, EOMI, Normocephalic Oral: No Gingival or Mucosal Lesions/ Ulcerations Neck: Supple, No JVD, Negative Carotid Bruits Chest wall/Lungs: Air entry diminished in bilateral lung bases. No crepitation/rhonchi Cardiovascular: Regular rate, Regular Rhythm, Normal S1, Normal S2, No M/G/R Abdomen: Bowel Sounds Present, Soft, Non Tender, Non-Distended : No dysuria. No renal angle tenderness. No suprapubic tenderness. Extremities: No edema, Capillary Refill Less than 3 Seconds Skin: No rashes, No breakdown Musculoskeletal/spine: No point tenderness. Mild stiffness at L4-5. SLR at 60 degrees negative both lower extremities. No tenderness in knee or hip joints. ROM severely limited at lumbar back and hip joints because of muscle spasm Neurological: Cranial nerves II-XII grossly intact, DTR 2+/4. No acute focal neurological deficit. Psych/Mental Status: Flat affect Weight / BMI Weight Weight: 172 lb 6.424 oz Body Mass Index (BMI) 24.7 ABG / Lab / Microbiology Data 12/10/23 04:43 12/10/23 04:43 Laboratory: Laboratory Results - last 24 hr 12/11/23 16:24: POC Glucose 99 12/11/23 21:15: POC Glucose 185 H 12/12/23 05:04: POC Glucose 101 Microbiology: Microbiology 12/09/23 22:50 Blood Culture (Wb) - Anticubital Right Blood Culture - Preliminary No growth in 48 hours. 12/09/23 22:48 Blood Culture (Wb) - Left Wrist Blood Culture - Preliminary No growth in 48 hours. Radiography Diagnostic Testing: Radiology Impression Lumbar Spine MRI 12/11/23 00:23 IMPRESSION: Discitis osteomyelitis at L4-5. No focal abscess or fluid collection. Scoliosis with degenerative and postoperative change. Multilevel foraminal narrowing. Electronically Signed: Tonny Rouse MD at 18:39 EDT , D/C Instructions Discharge Diet: No restrictions Weight Bearing Status: Weight bearing as tolerated Call your doctor if you observe: Fever of 101 or Higher, Coldness, Increased Pain, Numbness or Tingling, Change in Color, Inability to urinate, Inability to have a bowel movement, Shortness of breath, Dizziness, Fainting spells, Swelling in the ankles, Chest pain, Prolonged hiccupping, Increased palpitations (irregular heartbeat) and Calf discomfort When: IN 2 WEEKS Meaningful Use Info Meaningful Use Meaningful Use Diagnoses (Choose all that apply): None applicable Ischemic Stroke Statin Dosing Therapy Reference: STATIN DOSE THERAPY REFERENCE: * Patients > 75 years receive moderate or high dose statin therapy. * Patients 75 years or YOUNGER should receive HIGH intensity statin dose unless contraindicated. You will be required to document reason for non-treatment if statin daily dose does not meet guidelines. HIGH DOSE STATIN THERAPY DAILY Atorvastatin > than or = to 40 mg Rosuvastatin > than or = to 20 mg Amlodipine + Atorvastatin > than or = to 2.5/40 mg Ezetimibe + Simvastatin 10/80 mg Simvastatin 80mg Discharge Plan Admission Admit Date/Time: 12/10/23 00:16 Attending Provider: Ochoa Figueroa Primary Care Provider: Marlen Bear Consulting Providers: Giuliano Pacheco; Tarik Wilkinson Instructions Additional Instructions / Restrictions: Advised MiraLAX 17 g oral daily and senna S2 tablet twice daily as needed for constipation as patient is on oxycodone. Both medications are available [id number] Discharge Orders/Prescriptions Prescriptions: New metformin 500 mg tablet 500 mg PO BID 30 Days Qty: 60 2RF Rx Instructions: Start from 12/14/2023 Continued multivitamin Tablet 1 tab PO DAILY (DME) handicap placard See Rx Instructions .Route .MEDSUPPLY Qty: 1 0RF Rx Instructions: fatique , pain in right knee , oteoarathritis aspirin 81 MG tablet,delayed release (DR/EC) 81 mg PO DAILY gabapentin 100 MG capsule 200 mg PO TID baclofen 10 mg tablet 10 mg PO TID PRN PRN (Reason: muscle spasm) oxycodone 5 mg tablet 7.5 mg PO TID PRN PRN (Reason: pain) albuterol sulfate 90 mcg/actuation HFA aerosol inhaler 1 - 2 puff INHALATION Q4H PRN PRN (Reason: Wheezing) Qty: 8.5 3RF (DME) FreeStyle Lite Strips Strip See Rx Instructions .Route Qty: 100 3RF Rx Instructions: Twice daily (DME) blood-glucose meter [FreeStyle Lite Meter] Kit See Rx Instructions .Route Qty: 1 0RF Rx Instructions: Test twice daily fluticasone propionate 50 mcg/actuation spray,suspension 1 - 2 spray intranasal BID PRN (Reason: allergies, congestion) Qty: 16 3RF Rx Instructions: administer into each nostril; 2 sprays in each nostril for the first week linaclotide 72 mcg capsule 72 mcg PO DAILY Qty: 90 3RF atorvastatin 40 mg tablet 40 mg PO QHS Qty: 90 3RF Hold Instructions: 10/01/21- Myalgia and sleep issues omeprazole 40 mg capsule,delayed release(DR/EC) 40 mg PO DAILY PRN (Reason: Reflux) Qty: 30 1RF trazodone 50 mg tablet 50 - 100 mg PO QHS Qty: 90 3RF ondansetron 4 mg tablet,disintegrating 4 mg PO Q6H PRN (Reason: nausea and vomiting) Qty: 20 0RF Changed acetaminophen 500 mg capsule 1,000 mg PO Q8H PRN PRN (Reason: pain) Qty: 3 0RF Held naproxen sodium [Aleve] 220 mg capsule 220 mg PO BID PRN (Reason: Pain) Hold Instructions: Hold for 5 days as patient had JUNI. Discontinued ceftriaxone 2 gram recon soln 2 g IV Q24H 38 Days Rx Instructions: stop date 12/03/23. Dx: spine osteomyelitis. Weekly bmp, cbc, ESR, and vanc trough; fax to [phone]. Routine picc care per protocol. metformin 500 mg tablet 500 mg PO BID Qty: 180 3RF Referrals / Follow Up: Marlen Bear MD [Primary Care Provider] - Ventura Godoy DO [Med Staff - Active Staff] - Within 2 Weeks Dimas Chung MD [Med Staff - Active Staff] - Within 1 Month (For back pain) Disposition Disposition (needs filled in before D/C Order can be placed): Home, Self Care Charges/Coding Visit Charges Inpatient E&M: 80583 Disch Hosp >30min
[2023-12-12 12:46] VITALS: BP 149/106; PULSE 74; RESP 16; TEMP 36.6; O2SAT 97
--- NOTE | 2023-12-12 12:46 | PHA.DC.MR.R ---
Pharmacy [facility] Reconciliation Pharmacy Service has performed discharge medication reconciliation for this patient. The patient's discharge medication list was reviewed for discrepancies and discrepancies were resolved. Medications at Discharge Home Medications aspirin 81 mg tablet,delayed release 81 mg PO DAILY HEART HEALTH 12/23/15 multivitamin 1 tab PO DAILY supplement 07/09/19 gabapentin 100 mg capsule 200 mg PO TID neuropathy 05/14/20 naproxen sodium 220 mg capsule (Aleve) 220 mg PO BID PRN Pain 02/04/22 albuterol sulfate 90 mcg/actuation aerosol inhaler 1 - 2 puff inhalation Q4H PRN PRN Wheezing #8.5 grams 04/21/22 handicap placard #1 ea 04/21/22 blood sugar diagnostic (FreeStyle Lite Strips) #100 ea 09/15/22 blood-glucose meter (FreeStyle Lite Meter kit) #1 ea 09/15/22 fluticasone propionate 50 mcg/actuation nasal spray,suspension 1 - 2 spray intranasal BID PRN allergies, congestion #16 grams 04/27/23 linaclotide 72 mcg capsule 72 mcg PO DAILY IBS #90 caps 06/27/23 atorvastatin 40 mg tablet 40 mg PO QHS CHOLESTEROL #90 tabs 08/21/23 omeprazole 40 mg capsule,delayed release 40 mg PO DAILY PRN Reflux #30 caps 08/21/23 trazodone 50 mg tablet 50 - 100 mg (1 - 2 x 50 mg) PO QHS sleep #90 tabs 08/21/23 ondansetron 4 mg disintegrating tablet 4 mg PO Q6H PRN nausea and vomiting #20 tabs 10/03/23 oxycodone 5 mg tablet 7.5 mg PO TID PRN PRN pain 10/21/23 baclofen 10 mg tablet 10 mg PO TID PRN PRN muscle spasm 12/10/23 acetaminophen 500 mg capsule 1,000 mg (2 x 500 mg) PO Q8H PRN PRN pain #3 caps 12/12/23 metformin 500 mg tablet 500 mg PO BID 1 month #60 tabs 12/12/23
== END 2023-12-12 13:28 | disposition home or self-care (01) | DRG 552 ==
LOC: ED 23:21 → MS3 12-10 00:35
PROVIDERS: Nurse Practitioner; Admitting Provider Hospitalist; Emergency Provider Emergency Medicine; PCP Internal Medicine; Visit Provider Internal Medicine
DX: M54.50 Low back pain, unspecified (principal); N17.9 Acute kidney failure, unspecified; E11.40 Type 2 diabetes mellitus with diabetic neuropathy, unspecified; I10 Essential (primary) hypertension; J45.909 Unspecified asthma, uncomplicated; M54.16 Radiculopathy, lumbar region; I25.10 Atherosclerotic heart disease of native coronary artery without angina pectoris; K21.9 Gastro-esophageal reflux disease without esophagitis; M79.7 Fibromyalgia; E78.00 Pure hypercholesterolemia, unspecified; F17.220 Nicotine dependence, chewing tobacco, uncomplicated; R03.0 Elevated blood-pressure reading, without diagnosis of hypertension; R53.81 Other malaise; Z79.1 Long term (current) use of non-steroidal anti-inflammatories (NSAID); Z79.82 Long term (current) use of aspirin; Z79.84 Long term (current) use of oral hypoglycemic drugs; Z79.899 Other long term (current) drug therapy; Z95.1 Presence of aortocoronary bypass graft; Z87.39 Personal history of other diseases of the musculoskeletal system and connective tissue
CPT/HCPCS: 36415; 72132; 72158; 80048; 82962; 85025; 85027; 85652; 86140; 87040; 94668; 97116; 97162; 97165; 97530; 99285; A9575; J7030; J7040; J7050; Q9967; A4216; J0696; J2405

== ENCOUNTER 2024-01-01 18:25 | Inpatient (IN) | payer MEDICARE, SELFPAY ==
[2024-01-01 18:28] VITALS: BP 129/73; PULSE 106; RESP 22; TEMP 36.9; O2SAT 100; BMI 24.1
--- NOTE | 2024-01-01 18:51 | EDS_ITS ---
HPI History of Present Illness Chief Complaint: Back [facility] Medical History Agent orange exposure Alcohol use Ambulates with cane Arthritis Arthropathy of cervical facet joint Asthma Atherosclerotic heart disease of [place] coronary artery without angina pectoris Back pain Bilateral primary osteoarthritis of knee Bilirubinuria BPH w urinary obs/LUTS Cancer Cardiology follow-up encounter Cervical spondylosis Chondromalacia of both patellae Chondromalacia, left knee Chondromalacia, right knee Contact with or exposure to other viral diseases COVID-19 virus detected (11/19/20) Degeneration of cervical disc without myelopathy Degeneration of intervertebral disc of lumbosacral region Diabetes Essential (primary) hypertension Fibromyalgia Fusion of spine, cervical region High cholesterol (~08/21/23) History of echocardiogram History of IBS History of pain when walking History of steroid therapy History of stress test Hyperlipemia Injury of head and neck Left knee DJD Lumbosacral radiculopathy at L5 Nonrheumatic aortic (valve) stenosis with insufficiency Obesity Opioid dependence Prostate disease Radiculopathy of lumbosacral region Restless legs Right knee DJD Shortness of breath on exertion Smokeless tobacco use Spinal stenosis of lumbosacral region Spondylosis of lumbosacral region without myelopathy or radiculopathy Syncope Tear of medial meniscus of right knee Tension headache Type 2 diabetes mellitus Wears hearing aid Home Medications ?Medication ?Instructions ?Recorded ?Last Taken ?Type aspirin 81 mg tablet,delayed 81 mg PO DAILY HEART HEALTH 12/23/15 11/01/23 History release multivitamin 1 tab PO DAILY supplement 07/09/19 11/01/23 History gabapentin 100 mg capsule 200 mg PO TID neuropathy 05/14/20 11/01/23 History albuterol sulfate 90 mcg/actuation 1 - 2 puff inhalation Q4H PRN PRN 04/21/22 Unknown Rx aerosol inhaler Wheezing #8.5 grams handicap placard #1 ea 04/21/22 Unknown Rx blood sugar diagnostic (FreeStyle #100 ea 09/15/22 Unknown Rx Lite Strips) blood-glucose meter (FreeStyle #1 ea 09/15/22 Unknown Rx Lite Meter kit) fluticasone propionate 50 1 - 2 spray intranasal BID PRN 04/27/23 10/31/23 Rx mcg/actuation nasal allergies, congestion #16 grams spray,suspension atorvastatin 40 mg tablet 40 mg PO QHS CHOLESTEROL #90 tabs 08/21/23 11/01/23 Rx omeprazole 40 mg capsule,delayed 40 mg PO DAILY PRN Reflux #30 caps 08/21/23 11/01/23 Rx release trazodone 50 mg tablet 50 - 100 mg (1 - 2 x 50 mg) PO QHS 08/21/23 10/31/23 Rx sleep #90 tabs oxycodone 5 mg tablet 7.5 mg PO TID PRN PRN pain 10/21/23 11/01/23 History baclofen 10 mg tablet 10 mg PO TID PRN PRN muscle spasm 12/10/23 Unknown History acetaminophen 500 mg capsule 1,000 mg (2 x 500 mg) PO Q8H PRN 12/12/23 07/17/23 18:00 Rx PRN pain #3 caps metformin 500 mg tablet 500 mg PO BID 1 month #60 tabs 12/12/23 Unknown Rx Allergy/AdvReac Type Severity Reaction Status Date / Time adhesive tape Allergy Rash Verified 01/01/24 18:28 sertraline (From Zoloft) AdvReac Unknown Verified 01/01/24 18:28 Family History Brother Heart disease Myocardial infarction 60's CAD (coronary artery disease) Father Myocardial infarction 65 CAD (coronary artery disease) Mother HLD (hyperlipidemia) when son was 16 following MVA, healthy aside HLD. Surgical History H/O cervical spine surgery (08/2020) H/O coronary artery bypass surgery (09/14/11) History of back surgery History of carpal tunnel release History of herniorrhaphy History of lateral meniscus repair of right knee (~2021) History of left heart catheterization (09/09/11) Hx laparoscopic cholecystectomy (~11/2022) Hx of bilateral cataract extraction S/P laminectomy Status post discectomy for herniated nucleus pulposus Social History household members: spouse Smoking Status: Never smoker Smokeless tobacco user: chewing tobacco alcohol intake: current alcohol intake frequency: a few times a month substance use type: does not use caffeine: Yes Type: coffee Number of servings: 2 EXAM Physical Exam Const Vital Signs: 01/01/24 18:28 01/01/24 18:28 01/01/24 20:00 Temperature 98.4 F 98.4 F 99.4 F H Temperature Source Temporal Temporal Oral Pulse Rate 106 H 106 H 93 Respiratory Rate 22 H 22 H 20 H Blood Pressure 129/73 H 129/73 H 146/81 H Blood Pressure Mean 91 91 102 Pulse Ox 100 100 93 Oxygen Delivery Method Room Air Room Air 01/01/24 22:00 Temperature Temperature Source Pulse Rate 89 Respiratory Rate 12 Blood Pressure 140/82 H Blood Pressure Mean 101 Pulse Ox 94 Oxygen Delivery Method Room Air [facility] MDM MDM Narrative Medical decision making narrative: HISTORY OF PRESENT ILLNESS: 68-year-old male presents with concern for back pain. Per the patient's she was told to come to the [facility] part to be admitted by her infectious disease doctor. She states he spiked a fever 102.8 yesterday. She notes increasing pain as well despite taking oral pain medicine. Patient denies any saddle anesthesia, urinary retention, bowel or bladder incontinence, lower extremity weakness, fever or IV drug use, no recent spinal manipulation or surgery, no recent urinary catheterization. REVIEW OF SYSTEMS: Pertinent positives: Back pain Pertinent negatives: Bowel or bladder incontinence, urinary tension, loss of movement or sensation in the leg PHYSICAL EXAM: Nursing triage notes reviewed, Vital signs reviewed Constitutional: please see mdm HENT: MMM Eyes: Pupils equal round and reactive to light, Extraocular muscles intact Neck: No stridor, no JVD, full neck ROM Lungs: Clear to auscultation, No wheezing or rales. No increased work of breathing, no conversational dyspnea, no accessory muscle use, no nasal flaring. No respiratory distress noted Heart: Regular rate and rhythm, No murmurs, No rubs and No gallops, 2+ distal pulses (radial, femoral, posterior tibial) in all extremities Abdomen: Soft, there is no tenderness, rigidity, rebound or guarding, no obvious peritoneal signs, no palpable pulsatile abdominal masses, no auscultated abdominal bruit : No CVAT intact saddle sensation Extremities: No edema Neuro: Intact sensation L1-S1 dermatomal distributions. Intact 4/5 strength in hip flexion (T12-L3). Knee extension (L2-L4). Ankle dorsiflexion (L4-L5). Ankle plantar flexion (S1). Great toe extension (L5). 2+ patellar and Achilles DTRs. Skin: No rash or lesions noted MEDICAL DECISION MAKING: Chief Complaint: Back pain External records reviewed: Reviewed prior operative records: Underwent Repeat laminectomy L4-5 on the left with discectomy and decompression of L5 nerve root by Dr. Godoy in July 2023. Reviewed prior PCP note from 2 weeks ago Factors affecting care: Degenerative disc disease, type 2 diabetes, GERD, lumbar osteomyelitis, discitis, fibromyalgia Social determinants of health: none History obtained from others: none Consults: Infectious Disease (Dr. Gates), orthopedic surgery (Dr. Godoy), and Hospitalist (Dr. Childress) MDM Narrative: The patient was hemodynamically stable, afebrile, nontoxic-appearing. Initial vitals had tachycardia and slight tachypnea however these resolved without intervention. He was afebrile here in the emergency department. He had this exquisite tenderness to low back however had no focal neurologic deficits and no red flag symptoms such as bowel or bladder incontinence, urinary retention, loss of movement or sensation in the legs I considered the following differential diagnosis: Spine fracture, dislocation, epidural abscess, discitis, vertebral osteomyelitis I obtained a broad lab and imaging workup to further elucidate the etiology of his complaints and also look for other signs infection per infectious disease recommendations ALL IMAGES (IF OBTAINED) HAVE BEEN PERSONALLY REVIEWED AND INTERPRETED BY MYSELF. CT scan lumbar spine shows no changes but shows persistent endplate abnormalities this may be insurance account representative discitis or osteomyelitis I have personally reviewed the patient's chest x-ray. Chest x-ray is unremarkable for pulmonary edema, pneumothorax, pneumonia or focal cardiopulmonary abnormality. CBC without leukocytosis, noted mild anemia (downtrend from baseline) ESR elevated but downtrending from prior CRP elevated uptrending from prior BMP with mild hyponatremia, hypokalemia, no anion gap or evidence of endorgan hypoperfusion LFTs show no evidence of hepatobiliary pathology. Urinalysis pending Given patient's infectious disease recommendation to be admitted I opted for admission for pain control, MRI and definitive orthopedic surgery evaluation. I did discuss case with the hospitalist. I also discussed case with the orthopedic surgeon Dr. Godoy. Dr. Godoy recommended against antibiotics stating he preferred to get an MRI and then possibly perform CT-guided biopsy to better identify causative organism for more definitive treatment. Patient was admitted in stable condition. The patient and/or family, caregivers express understanding. The patient and/or family, caregivers agrees with the plan. Shared decision making: I will have a discussion with the patient and or visitors regarding risk/benefits of further testing or admission. They will be made aware of of the risk/benefits inherent in this decision they will be given the opportunity to voice understanding. Total critical care time today provided was at least 0 minutes. This excludes separately billable procedures. Critical care time (if documented) is secondary to the patient having high probability of clinically significant/life threatening deterioration in the patient's condition which required my urgent intervention. Impression: 1. Acute on chronic back pain 2. History of lumbar osteomyelitis 3. Elevated CRP Dispo: admit to medicine This note was generated with [employer] dictation software. It may contain incorrect words, spelling, and punctuation that were not noted in review of the chart prior to signing. Lab Data Labs: Laboratory Results - last 24 hr 01/01/24 19:32 WBC 4.6 RBC 3.28 L Hgb 9.6 L Hct 29.0 L MCV 88.4 MCH 29.3 MCHC 33.1 RDW Std Deviation 42.4 RDW Coeff of Frankie 13.1 Plt Count 229 MPV 8.1 Immature Gran % (Auto) 0.200 Neut % (Auto) 63.3 Lymph % (Auto) 21.1 [place] % (Auto) 13.6 H Eos % (Auto) 1.1 Baso % (Auto) 0.7 Absolute Neuts (auto) 2.9 Absolute Lymphs (auto) 0.96 Nucleated RBC % 0 ESR 25 H Sodium 135 L Potassium 3.4 L Chloride 102 Carbon Dioxide 29.0 Anion Gap 4 L BUN 19 H Creatinine 1.08 Estim Creat Clear Calc 65.72 Est GFR (MDRD) Af Amer 87 Est GFR (MDRD) Non-Af 72 BUN/Creatinine Ratio 17.6 Glucose 104 Lactic Acid 1.4 Calcium 8.7 Total Bilirubin 0.70 Direct Bilirubin 0.17 AST 18 ALT 16 Alkaline Phosphatase 85 C-React Prot Ext Range 85.90 H Total Protein 6.7 Albumin 3.0 L Globulin 3.7 Albumin/Globulin Ratio 0.8 L Lipase 39 Radiography Diagnostic Testing: Clinical Impression(s) from Imaging Studies Lumbar Spine CT 01/01/24 19:09 IMPRESSION: 1. Persistent endplate irregularities at L4-5 which do not appear to be significantly changed. If indicated further evaluation with MRI may be beneficial. 2. Multilevel degenerative change with disc space narrowing and bony neural foraminal narrowing. Electronically Signed: Robert Whittington MD at 20:35 EDT , Chest X-Ray 01/01/24 20:05 IMPRESSION: No radiographic evidence of acute cardiopulmonary disease. Electronically Signed: Robert Whittington MD at 20:45 EDT , Discharge Plan Triage Chief Complaint: Back ED Provider: Scotty Warner Dx/Rx/DC Orders Prescriptions: No Action multivitamin Tablet 1 tab PO DAILY (DME) handicap placard See Rx Instructions .Route .MEDSUPPLY Qty: 1 0RF Rx Instructions: fatique , pain in right knee , oteoarathritis aspirin 81 MG tablet,delayed release (DR/EC) 81 mg PO DAILY gabapentin 100 MG capsule 200 mg PO TID baclofen 10 mg tablet 10 mg PO TID PRN PRN (Reason: muscle spasm) acetaminophen 500 mg capsule 1,000 mg PO Q8H PRN PRN (Reason: pain) Qty: 3 0RF metformin 500 mg tablet 500 mg PO BID 30 Days Qty: 60 2RF Rx Instructions: Start from 12/14/2023 oxycodone 5 mg tablet 7.5 mg PO TID PRN PRN (Reason: pain) albuterol sulfate 90 mcg/actuation HFA aerosol inhaler 1 - 2 puff INHALATION Q4H PRN PRN (Reason: Wheezing) Qty: 8.5 3RF (DME) FreeStyle Lite Strips Strip See Rx Instructions .Route Qty: 100 3RF Rx Instructions: Twice daily (DME) blood-glucose meter [FreeStyle Lite Meter] Kit See Rx Instructions .Route Qty: 1 0RF Rx Instructions: Test twice daily fluticasone propionate 50 mcg/actuation spray,suspension 1 - 2 spray intranasal BID PRN (Reason: allergies, congestion) Qty: 16 3RF Rx Instructions: administer into each nostril; 2 sprays in each nostril for the first week atorvastatin 40 mg tablet 40 mg PO QHS Qty: 90 3RF omeprazole 40 mg capsule,delayed release(DR/EC) 40 mg PO DAILY PRN (Reason: Reflux) Qty: 30 1RF trazodone 50 mg tablet 50 - 100 mg PO QHS Qty: 90 3RF Primary Care Provider: Marlen Bear Referrals: Marlen Bear MD [Primary Care Provider] - Print Language: [place]
--- NOTE | 2024-01-01 19:09 | CT_ITS ---
EXAM: CT LUMBAR SPINE WITHOUT INTRAVENOUS CONTRAST CLINICAL INDICATION: back pain hx of discitis TECHNIQUE: Helically acquired images were obtained of the lumbar spine without intravenous contrast. 2D reformats were reviewed. This CT exam was performed using one or more of the following dose reduction techniques: automated exposure control, adjustment of the mA and/or kV according to patient size, and/or use of iterative reconstruction technique. COMPARISON: 12/09/2023 FINDINGS: VERTEBRAE: There is irregularity of the plates at L4 and L5. Present on the previous exam and does not appear to be significantly changed. There is also mild curvature of the lumbar spine. There are bilateral laminectomy defects seen at L3 and L4. DISCS/SPINAL CANAL/NEURAL FORAMINA: There is disc space narrowing at L2-3, L3-4 and L4-5. Bilateral bony neural foraminal narrowing at L2-3, L3-4 and L4-5. VASCULATURE: Visualized abdominal aorta is not dilated. LYMPH NODES: Unremarkable. No retroperitoneal adenopathy. CT/Spine Lumbar without Contrast IMPRESSION: 1. Persistent endplate irregularities at L4-5 which do not appear to be significantly changed. If indicated further evaluation with MRI may be beneficial. 2. Multilevel degenerative change with disc space narrowing and bony neural foraminal narrowing. Electronically Signed: Robert Whittington MD at 20:35 EDT ,
[2024-01-01 19:40] LABS: Absolute Lymphocyte Count 0.96 X10^3/uL (0.83-4.51); Absolute Neutrophil Count 2.9 X10^3/uL (2.0-7.7); Basophil# 0.03 X10^3/uL; Basophil% 0.7 % (0-1); Eosinophil# 0.05 X10^3/uL; Eosinophils% 1.1 % (0-5); Hemoglobin 9.6 g/dL (13.0-16.5); Lymphocyte # 0.96 X10^3/ul (0.83-4.51); Lymphocyte % 21.1 % (19-41); Mean Corp Hgb Conc 33.1 g/dL (32-36); Mean Corpuscular Hgb 29.3 pg (27.0-32.0); Mean Corpuscular Volume 88.4 fL (80-94); Mean Platelet Vol. 8.1 fl (6.2-12.0); Monocyte# 0.62 X10^3/uL; Monocyte% 13.6 % (0-10); NRBC Flagged by Analyzer 0 % (0-5); Neutrophil # 2.88 X10^3/uL (2.7-7.7); Neutrophil % 63.3 % (47-70); Platelet Count 229 K/mm3 (150-450); RBC Distribution Width CV 13.1 % (11.6-14.6); RBC Distribution Width SD 42.4 fl (35.1-43.9); Red Blood Count 3.28 M/mm3 (4.6-6.2); White Blood Count 4.6 K/mm3 (4.4-11.0)
[2024-01-01 19:56] LABS: Erythrocyte Sedimentation Rate 25 mm/hr (0-20)
[2024-01-01 20:00] VITALS: BP 146/81; PULSE 93; RESP 20; TEMP 37.4; O2SAT 93
--- NOTE | 2024-01-01 20:05 | RAD_ITS ---
EXAM: XR CHEST, 1 VIEW CLINICAL INDICATION: fever TECHNIQUE: Frontal view of the chest. COMPARISON: 10/23/2023 FINDINGS: LUNGS AND PLEURAL SPACES: Unremarkable. No consolidation or edema. No pneumothorax. No effusion. HEART: Unremarkable. Cardiac silhouette not enlarged. MEDIASTINUM: Central airways and mediastinal contour are unremarkable. BONES/JOINTS: Unremarkable. No acute fracture. SOFT TISSUES: Unremarkable. RAD/Chest 1 View (Portable) IMPRESSION: No radiographic evidence of acute cardiopulmonary disease. Electronically Signed: Robert Whittington MD at 20:45 EDT ,
[2024-01-01 20:10] LABS: ALB/GLOB Ratio 0.8 RATIO (0.9-2.4); AST(SGOT) 18 U/L (15-37); Alanine Aminotransfer ALT/SGPT 16 U/L (16-61); Alkaline Phosphatase 85 U/L (45-117); Anion Gap 4 (5-15); BUN 19 mg/dL (7-18); BUN/Creat Ratio 17.6 RATIO (10-20); Bilirubin, Direct 0.17 mg/dL (0.00-0.30); Calcium,Total 8.7 mg/dL (8.5-10.1); Chloride 102 mmol/L (98-107); Creatinine, Serum 1.08 mg/dL (0.70-1.30); EST Glomerular Filtration Rate 72 mL/min (>60); Est Glom Filt Rate - Afr Amer 87 mL/min (>60); Estimated Creatinine Clearance 65.72 ml/min; Globulin 3.7 g/dL (2.2-4.2); Glucose 104 mg/dL (74-106); Lipase 39 U/L (13-75); Potassium 3.4 mmol/L (3.5-5.1); Protein, Total 6.7 g/dL (6.4-8.2); Sodium Level 135 mmol/L (136-145)
[2024-01-01 20:12] LABS: Lactic Acid 1.4 mmol/L (0.4-1.9)
[2024-01-01] MEDS: Ketorolac 15 MG/ML Vial IV ×2 (20:46→21:44)
[2024-01-01] MEDS: Morphine 4 MG/ML Syringe IV (20:46)
--- NOTE | 2024-01-01 21:27 | HP.PCM.HOS_ITS ---
[facility] General General Date of Admission: 01/01/24 Date of Service: 01/01/24 Chief Complaint: Back Pain and Fever with History of Discitis and Osteomyelitis. [facility] Narrative JARET BATES, is a 68 M with a past medical history of essential hypertension, hyperlipidemia, DM-2; of unknown control, CAD; s/p CABG x 3 (2011), Asthma, smokeless tobacco abuse, OA; bilateral knee pain, history of cervical spondylosis; s/p cervical spine fusion (2020), history of spinal stenosis of the lumbosacral region, DDD, RLS, history of BPH; with urinary obstruction, history of laparoscopic cholecystectomy (2022), history of COVID-19 (2020), remote history of agent orange exposure, chronic debility; ambulating with cane, fibromyalgia, IBS, history of opioid dependence and recently diagnosed discitis and osteomyelitis in the setting of previous discectomy and laminectomy for herniated nucleus pulposus with repeat L4-L5 laminectomy on the Left with discectomy and decompression of the L5 nerve root by Dr. Godoy (07/2023) who presents to [facility] ER complaining of back pain with fever. Mr. Bates reports his symptoms began approximately 1 day prior to admission after he spiked a temperature of 102.8 ?F yesterday. He also admits to increasing pain in spite of taking his oral opiate analgesics and when he contacted his infectious disease physician he was instructed to come to the ER for further evaluation and treatment. He denies any saddle anesthesia, urinary retention, bowel or bladder incontinence, lower extremity weakness, history of IVDA, no recent spinal manipulation or trauma, no recent surgery and no recent urinary catheterization. In the ER he was noted to have have a highly elevated CRP of 85.9 mg/L and an increased ESR of 25 mm/h plus fever with a CT scan of the lumbar spine that revealed persistent endplate irregularities at L4-L5 which do not appear to be significantly changed from previous with multilevel degenerative changes with disc space narrowing and bony neuroforaminal narrowing with further evaluation with MRI recommended by radiologist in the setting of known recent discitis and osteomyelitis of the lumbar spine with laboratory evidence of hypokalemia 3.4 mmol/L present on admission complicated by clinical evidence of intractable back pain with generalized weakness and both Dr. Godoy of ortho-spine and Dr. Wilkinson of infectious disease recommend holding antibiotics at this time until an MRI can be performed along with a biopsy and culture of his lumbar spine in an effort to make a definitive diagnosis of recurrent infection. He was then admitted to the general medical floor under observation status for ongoing care for stay that is expected to be less than 2 midnights. [facility] Medical History Bilirubinuria Contact with or exposure to other viral diseases Lumbosacral radiculopathy at L5 History of steroid therapy Smokeless tobacco use Tension headache Agent orange exposure Bilateral primary osteoarthritis of knee Wears hearing aid Cancer Alcohol use Diabetes Ambulates with cane Arthritis Prostate disease High cholesterol (~08/21/23) Restless legs Back pain Injury of head and neck Syncope History of IBS Shortness of breath on exertion History of pain when walking History of echocardiogram History of stress test Cardiology follow-up encounter Tear of medial meniscus of right knee Fibromyalgia BPH w urinary obs/LUTS Left knee DJD Right knee DJD Fusion of spine, cervical region Chondromalacia, right knee Chondromalacia, left knee Chondromalacia of both patellae COVID-19 virus detected (11/19/20) Nonrheumatic aortic (valve) stenosis with insufficiency Opioid dependence Obesity Asthma Hyperlipemia Essential (primary) hypertension Atherosclerotic heart disease of [place] coronary artery without angina pectoris Type 2 diabetes mellitus Spondylosis of lumbosacral region without myelopathy or radiculopathy Spinal stenosis of lumbosacral region Radiculopathy of lumbosacral region Degeneration of intervertebral disc of lumbosacral region Arthropathy of cervical facet joint Degeneration of cervical disc without myelopathy Cervical spondylosis Home Medications ?Medication ?Instructions ?Recorded ?Last Taken ?Type aspirin 81 mg tablet,delayed 81 mg PO DAILY HEART HEALTH 12/23/15 11/01/23 History release multivitamin 1 tab PO DAILY supplement 07/09/19 11/01/23 History albuterol sulfate 90 mcg/actuation 1 - 2 puff inhalation Q4H PRN PRN 04/21/22 Unknown Rx aerosol inhaler Wheezing #8.5 grams handicap placard #1 ea 04/21/22 Unknown Rx blood sugar diagnostic (FreeStyle #100 ea 09/15/22 Unknown Rx Lite Strips) blood-glucose meter (FreeStyle #1 ea 09/15/22 Unknown Rx Lite Meter kit) fluticasone propionate 50 1 - 2 spray intranasal BID PRN 04/27/23 10/31/23 Rx mcg/actuation nasal allergies, congestion #16 grams spray,suspension atorvastatin 40 mg tablet 40 mg PO QHS CHOLESTEROL #90 tabs 08/21/23 11/01/23 Rx trazodone 50 mg tablet 50 - 100 mg (1 - 2 x 50 mg) PO QHS 08/21/23 10/31/23 Rx sleep #90 tabs baclofen 10 mg tablet 10 mg PO TID PRN PRN muscle spasm 12/10/23 Unknown History acetaminophen 500 mg capsule 1,000 mg (2 x 500 mg) PO Q8H PRN 12/12/23 07/17/23 18:00 Rx PRN pain #3 caps metformin 500 mg tablet 500 mg PO BID 1 month #60 tabs 12/12/23 Unknown Rx gabapentin 300 mg capsule 300 mg PO TID 01/01/24 Unknown History oxycodone-acetaminophen 7.5 mg-325 1 tab PO BID 01/01/24 Unknown History mg tablet linaclotide 72 mcg capsule 72 mcg PO DAILY irritable colon 01/02/24 Unknown History (Linzess) Allergy/AdvReac Type Severity Reaction Status Date / Time adhesive tape Allergy Rash Verified 01/01/24 18:28 sertraline (From Zoloft) AdvReac Unknown Verified 01/01/24 18:28 Family History Brother Heart disease Myocardial infarction 60's CAD (coronary artery disease) Father Myocardial infarction 65 CAD (coronary artery disease) Mother HLD (hyperlipidemia) when son was 16 following MVA, healthy aside HLD. Surgical History S/P laminectomy Status post discectomy for herniated nucleus pulposus History of lateral meniscus repair of right knee (~2021) Hx laparoscopic cholecystectomy (~11/2022) Hx of bilateral cataract extraction H/O cervical spine surgery (08/2020) History of herniorrhaphy History of carpal tunnel release History of back surgery History of left heart catheterization (09/09/11) H/O coronary artery bypass surgery (09/14/11) Social History household members: spouse Smoking Status: Never smoker Smokeless tobacco user: chewing tobacco alcohol intake: current alcohol intake frequency: a few times a month substance use type: does not use caffeine: Yes Type: coffee Number of servings: 2 ROS ROS Narrative Review of systems: General: Patient admits to high fever of 102.8 ?F yesterday as per HPI. HENT: Denies headache, denies stuffy nose, denies sore throat EYES: Denies changes in vision or discharge from eyes. Resp: Denies cough, denies shortness of breath Cardiac: Denies chest pain, palpitations or heart racing. GI: Denies abdominal pain, denies changes in bowel, denies nausea or vomiting. : Denies changes in urination Extremity: Denies swelling Musculoskeletal: Patient admits to severe back pain present at rest but made worse with movement. Neuro: Patient denies headache, paresthesias or focal neurologic deficits. Heme: Denies any bleeding or bruising Skin: Denies rashes Psychiatric: No complaints voiced related to uncontrolled depression or anxiety. Endocrine: No polyuria, polydipsia or polyphagia. The rest of the 14 point ROS was negative except for positives in HPI. Vital Signs Vital Signs Vital Signs: 01/01/24 18:28 01/01/24 18:28 01/01/24 20:00 Temperature 98.4 F 98.4 F 99.4 F H Temperature Source Temporal Temporal Oral Pulse Rate 106 H 106 H 93 Respiratory Rate 22 H 22 H 20 H Blood Pressure 129/73 H 129/73 H 146/81 H Blood Pressure Mean 91 91 102 Pulse Ox 100 100 93 Oxygen Delivery Method Room Air Room Air Weight Weight: 168 lb 6.4 oz Body Mass Index (BMI) 24.1 Physical Exam Const alert, oriented x3 and average body habitus General Appearance: cooperative HEENT normocephalic, head/scalp atraumatic, hearing grossly normal bilaterally and moist oral mucous membranes Eyes PERRL and EOMs intact bilaterally Neck no lymphadenopathy and supple Resp normal respiratory effort, no retractions, no use of accessory muscles and clear to auscultation bilaterally Cardio regular rate and regular rhythm GI normal to inspection, nondistended, normoactive bowel sounds, soft to palpation, non-tender and non-distended Extremity normal to inspection Skin Skin Narrative: Patient has no evidence of abscess, jaundice or rash. Neuro oriented x3, CN's II-XII intact bilaterally, moves all extremities and no focal motor deficits Neuro Narrative: Patient has intact sensation to L1/S1 dermatomal distributions. Intact 4 out of 5 strength in hip flexion (T12-L3). Knee extension (L2-L4). Ankle dorsiflexion (L4-L5). Ankle plantarflexion (S1). Great toe extension (L5). 2+ patellar and Achilles DTRs. Sensorium / Orientation: awake, alert, oriented to person, oriented to place and oriented to time Speech: speech normal Psych affect normal Results Medical Records Data Attestation: I reviewed the patient's medical records Lab / Micro Data Attestation: I reviewed the patient's lab results. 01/02/24 06:01 01/01/24 19:32 Labs: Laboratory Results - last 24 hr 01/01/24 19:32: WBC 4.6, RBC 3.28 L, Hgb 9.6 L, Hct 29.0 L, MCV 88.4, MCH 29.3, MCHC 33.1, RDW Std Deviation 42.4, RDW Coeff of Frankie 13.1, Plt Count 229, MPV 8.1, Immature Gran % (Auto) 0.200, Neut % (Auto) 63.3, Lymph % (Auto) 21.1, [place] % (Auto) 13.6 H, Eos % (Auto) 1.1, Baso % (Auto) 0.7, Absolute Neuts (auto) 2.9, Absolute Lymphs (auto) 0.96, Nucleated RBC % 0, ESR 25 H, Sodium 135 L, P otassium 3.4 L, Chloride 102, Carbon Dioxide 29.0, Anion Gap 4 L, BUN 19 H, Creatinine 1.08, Estim Creat Clear Calc 65.72, Est GFR (MDRD) Af Amer 87, Est GFR (MDRD) Non-Af 72, BUN/Creatinine Ratio 17.6, Glucose 104, Lactic Acid 1.4, Calcium 8.7, Total Bilirubin 0.70, Direct Bilirubin 0.17, AST 18, ALT 16, Alkaline Phosphatase 85, C-React Prot Ext Range 85.90 H, Total Protein 6.7, A lbumin 3.0 L, Globulin 3.7, Albumin/Globulin Ratio 0.8 L, Lipase 39 Micro: Microbiology 01/01/24 19:28 Mucosa - Nose SARS-CoV-2, Influenza & RSV (PCR) - Final Imaging Radiology Impression Lumbar Spine CT 01/01/24 19:09 IMPRESSION: 1. Persistent endplate irregularities at L4-5 which do not appear to be significantly changed. If indicated further evaluation with MRI may be beneficial. 2. Multilevel degenerative change with disc space narrowing and bony neural foraminal narrowing. Electronically Signed: Robert Whittington MD at 20:35 EDT , Chest X-Ray 01/01/24 20:05 IMPRESSION: No radiographic evidence of acute cardiopulmonary disease. Electronically Signed: Robert Whittington MD at 20:45 EDT , Assessment & Plan Assessment/Plan (1) History of discitis: (2) History of osteomyelitis: (3) Recurrent low back pain: (4) Debility: (5) Hypokalemia: PLAN: Plan 1. Highly elevated CRP of 85.9 mg/L and an increased ESR of 25 mm/h plus fever with a CT scan of the lumbar spine that revealed persistent endplate irregularities at L4-L5 which do not appear to be significantly changed from previous with multilevel degenerative changes with disc space narrowing and bony neuroforaminal narrowing with further evaluation with MRI recommended by radiologist in the setting of known recent discitis and osteomyelitis of the lumbar spine - Admit to general medical floor under observation status. Hold off on antibiotics for now and order MRI of the lumbar spine to be done urgently in the a.m. as per specialist's recommendations. Give Tylenol as needed [id number] (level 1-5 out of 10) pain or fever. Give Dilaudid IV as needed for severe (level 6-10 out of 10) pain. Finally, we will consult Dr. Godoy ortho-spine and Dr. Wilkinson of infectious diseases patient who is well-known to them with help appreciated in advance. 2. Mild hypokalemia of 3.4 mmol/L present on admission complicating #1 - Give supplemental KCl and then recheck level in a.m. to ensure improvement. 3. Intractable back pain with generalized weakness in the setting of known OA; bilateral knee pain, fibromyalgia and chronic debility; ambulating with cane at baseline compounding #1 & #2 - PT/OT case management consult and treat on rounds in the a.m. for further recommendations with help appreciated in advance. 4. History of discectomy and laminectomy for herniated nucleus pulposus with repeat L4-L5 laminectomy on the Left with discectomy and decompression of the L5 nerve root by Dr. Godoy (07/2023) - Noted. 5. History of cervical spondylosis; s/p cervical spine fusion (2020) - Noted. 6. History of spinal stenosis of the lumbosacral region with DDD - Noted. 7. Essential hypertension - Continue home regimen plus give IV hydralazine as needed for systolic blood pressure greater than 160 mmHg. 8. Hyperlipidemia - Resume statin. 9. DM-2; of unknown control - ADA diet. FSBS q. AC/HS plus SSI. Check HgbA1c to objectively assess quality of glucose control. 10. CAD; s/p CABG x 3 (2011) - Noted. 11. Asthma - Stable with no evidence of flare. Give nebulizers prn. 12. Smokeless tobacco abuse - Tobacco cessation will be strongly encouraged. 13. RLS - Resume current treatment. 14. History of BPH; with urinary obstruction - Noted. 15. History of laparoscopic cholecystectomy (2022) - Noted. 16. History of COVID-19 (2020) - Noted. 17. Remote history of agent orange exposure - Noted. 18. IBS - Stable. 19. History of opioid dependence - Noted. 20. DVT prophylaxis - SCD's only with impending lumbar biopsy. Total time: Approximately 85 minutes. Charges/Coding Visit Charges OBSV E&M: 27056 Observ/hosp same date L3
[2024-01-01 21:53] LABS: Bacteria 0 SEEN /hpf (None Seen); Mucous, Urine 0 SEEN /hpf (<or=2+); Red Blood Cells-Urine 0 SEEN /hpf (0-5); Squamous Epithelial Cells - UA 0 SEEN /hpf (0-5); White Blood Cells 0 SEEN /hpf (0-5)
[2024-01-01 22:00] VITALS: BP 140/82; PULSE 89; RESP 12; O2SAT 94
[2024-01-01 23:01] LABS: Color, Urine Yellow (Yellow); Glucose, Dipstick Normal (Normal); Ketone-Dipstick Negative (Negative); Leukocyte Esterase-Dipstick Negative /ul (Negative); Nitrite-Dipstick Negative (Negative); Occult Blood-Urine Negative /ul (Negative); Protein-Dipstick 30 mg/dl (Negative); Urine Bilirubin Dipstick Negative (Negative); Urine Clarity Clear (Clear); Urine Urobilinogen 4 mg/dl (Normal)
[2024-01-01 23:41] VITALS: BP 114/77; PULSE 85; RESP 16; TEMP 36.6; O2SAT 97
[2024-01-02] VITALS (8 sets, daily range): BP systolic 100–155; BP diastolic 59–88; PULSE 67–81; RESP 16–18; TEMP 36.4–36.9; O2SAT 92–100; BMI 24.0
[2024-01-02] MEDS: KCL 20MEQ in 0.9% NS 20 MEQ/1,000 ML IV.SOLN. 70 MEQ IV ×2 (01:08→14:54)
[2024-01-02] MEDS: Acetaminophen 325 MG Tablet 650 MG PO ×2 (01:09→09:14)
[2024-01-02] MEDS: Potassium Chloride Oral Tablet 20 MEQ 60 MEQ PO (01:09)
[2024-01-02] MEDS: Baclofen 10 MG Tablet PO ×3 (01:09→20:15)
[2024-01-02] MEDS: Gabapentin 100 MG Capsule 200 MG PO (05:14)
[2024-01-02 06:42] LABS: Absolute Lymphocyte Count 1.05 X10^3/uL (0.83-4.51); Absolute Neutrophil Count 2.3 X10^3/uL (2.0-7.7); Basophil# 0.03 X10^3/uL; Basophil% 0.7 % (0-1); Eosinophil# 0.11 X10^3/uL; Eosinophils% 2.7 % (0-5); Hematocrit 29.6 % (40-54); Hemoglobin 9.5 g/dL (13.0-16.5); Lymphocyte # 1.05 X10^3/ul (0.83-4.51); Lymphocyte % 25.7 % (19-41); Mean Corp Hgb Conc 32.1 g/dL (32-36); Mean Corpuscular Hgb 28.6 pg (27.0-32.0); Mean Corpuscular Volume 89.2 fL (80-94); Mean Platelet Vol. 8.4 fl (6.2-12.0); Monocyte# 0.61 X10^3/uL; NRBC Flagged by Analyzer 0 % (0-5); Neutrophil # 2.26 X10^3/uL (2.7-7.7); Neutrophil % 55.4 % (47-70); Platelet Count 250 K/mm3 (150-450); RBC Distribution Width CV 13.1 % (11.6-14.6); RBC Distribution Width SD 42.6 fl (35.1-43.9); Red Blood Count 3.32 M/mm3 (4.6-6.2); White Blood Count 4.1 K/mm3 (4.4-11.0)
[2024-01-02 07:19] LABS: ALB/GLOB Ratio 0.9 RATIO (0.9-2.4); AST(SGOT) 18 U/L (15-37); Alanine Aminotransfer ALT/SGPT 15 U/L (16-61); Albumin, Serum 2.9 g/dL (3.2-5.0); Alkaline Phosphatase 80 U/L (45-117); Anion Gap 6 (5-15); BUN 18 mg/dL (7-18); BUN/Creat Ratio 16.8 RATIO (10-20); Calcium,Total 8.9 mg/dL (8.5-10.1); Chloride 105 mmol/L (98-107); Creatinine, Serum 1.07 mg/dL (0.70-1.30); EST Glomerular Filtration Rate 73 mL/min (>60); Est Glom Filt Rate - Afr Amer 88 mL/min (>60); Estimated Creatinine Clearance 66.33 ml/min; Globulin 3.4 g/dL (2.2-4.2); Glucose 96 mg/dL (74-106); Magnesium 1.6 mg/dL (1.6-2.6); Phosphorus 3.2 mg/dL (2.5-4.9); Potassium 3.8 mmol/L (3.5-5.1); Protein, Total 6.3 g/dL (6.4-8.2); Sodium Level 138 mmol/L (136-145); Thyroid Stim Hormone (TSH) 2.15 uIU/mL (0.358-3.74)
--- NOTE | 2024-01-02 07:45 | PN.HOSP_ITS ---
Reason for Visit Reason for Visit: Back pain/fever Subjective Subjective Mr. Bates is a 68-year-old white male who who has a history of a previous lumbar laminectomy and fusion on 07/18/2023 who was then readmitted in October 2023 with a diagnosis of discitis and osteomyelitis. Biopsy cultures were negative however he was treated with 6 weeks of IV vancomycin and ceftriaxone at the recommendation of infectious disease. Stop date for the antibiotics was 12/03/2023. Since that point in time he has had increasing low back pain and had a fever of 102.8 the day prior to presentation at which time they called the infectious disease office on the day of presentation and they told him to be evaluated the emergency department. He denied any stable anesthesia, urinary retention, bowel or bladder incontinence, lower extremity weakness and had had no spinal manipulation or surgery since that point in time. Vital signs on presentation showed temperature 98.4, heart rate 106, respiratory was 22, blood pressure was 129/73 and pulse ox 100% on room air. His CBC showed a anemia and a monocytosis but was otherwise unremarkable. ESR was elevated at 25 and CRP was elevated to 85.9. Chemistry panel showed mild hyponatremia with a sodium of 135, mild hypokalemia with potassium of 3.4, normal renal function, normal glucose level and normal liver functions. Lactic acid was 1.4. Lipase was 39 and UA is not consistent with infection. CT of the lumbar spine showed persistent endplate irregularities at L4 and L5 which did not appear to be significantly changed and multilevel degenerative changes with the space narrowing and bony neuroforaminal narrowing. Chest x-ray showed no acute findings. Patient states he is upset with Dr. Godoy and did not even want to see him this hospitalization however informed him since he did his initial surgery he needs to see him. I did discuss the case with Dr. Wang and he does not feel that there is any new infection based on his review of the MRI despite the report and plan is for CT-guided biopsy off antibiotics tomorrow. Still having pretty significant pain he states he was told by his automobile locator not to take Celebrex several years ago however it was helpful. I told him we would use a short course here but no longer than 5 to 7 days to help with his pain management for the short-term. Objective Data Objective Data Vital Signs: Vital Signs Temp Pulse Resp BP Pulse Ox O2 Del Method 97.9 F 67 16 134/88 H 100 Room Air 01/02/24 05:18 01/02/24 05:18 01/02/24 05:18 01/02/24 05:18 01/02/24 05:18 01/02/24 05:18 Oxygen Delivery Method Room Air Weight: 76.2 kg Body Mass Index (BMI) 24.0 Intake & Output: Intake and Output for Last 24 Hours 12/31/23 01/01/24 01/02/24 23:59 23:59 23:59 Intake Total 0 / 0 Balance 0 / 0 Lab / Micro Data 01/02/24 06:01 01/02/24 06:01 Labs: Laboratory Results - last 24 hr 01/01/24 19:32: WBC 4.6, RBC 3.28 L, Hgb 9.6 L, Hct 29.0 L, MCV 88.4, MCH 29.3, MCHC 33.1, RDW Std Deviation 42.4, RDW Coeff of Frankie 13.1, Plt Count 229, MPV 8.1, Immature Gran % (Auto) 0.200, Neut % (Auto) 63.3, Lymph % (Auto) 21.1, [place] % (Auto) 13.6 H, Eos % (Auto) 1.1, Baso % (Auto) 0.7, Absolute Neuts (auto) 2.9, Absolute Lymphs (auto) 0.96, Nucleated RBC % 0, ESR 25 H, Sodium 135 L, P otassium 3.4 L, Chloride 102, Carbon Dioxide 29.0, Anion Gap 4 L, BUN 19 H, Creatinine 1.08, Estim Creat Clear Calc 65.72, Est GFR (MDRD) Af Amer 87, Est GFR (MDRD) Non-Af 72, BUN/Creatinine Ratio 17.6, Glucose 104, Lactic Acid 1.4, Calcium 8.7, Total Bilirubin 0.70, Direct Bilirubin 0.17, AST 18, ALT 16, Alkaline Phosphatase 85, C-React Prot Ext Range 85.90 H, Total Protein 6.7, A lbumin 3.0 L, Globulin 3.7, Albumin/Globulin Ratio 0.8 L, Lipase 39 01/01/24 21:47: Urine Color Yellow, Urine Clarity Clear, Urine pH 7.0, Ur Specific [place] 1.010, Urine Protein 30 H, Urine Glucose (UA) Normal, Urine Ketones Negative, Urine Occult Blood Negative, Urine Nitrite Negative, Urine Bilirubin Negative, Urine Urobilinogen 4 H, Ur Leukocyte Esterase Negative, Urine RBC 0 SEEN, Urine WBC 0 SEEN, Ur Squamous Epith Cells 0 SEEN, Urine Bacteria 0 SEEN, Urine Mucus 0 SEEN 01/02/24 06:01: WBC 4.1 L, RBC 3.32 L, Hgb 9.5 L, Hct 29.6 L, MCV 89.2, MCH 28.6, MCHC 32.1, RDW Std Deviation 42.6, RDW Coeff of Frankie 13.1, Plt Count 250, MPV 8.4, Immature Gran % (Auto) 0.500, Neut % (Auto) 55.4, Lymph % (Auto) 25.7, [place] % (Auto) 15.0 H, Eos % (Auto) 2.7, Baso % (Auto) 0.7, Absolute Neuts (auto) 2.3, Absolute Lymphs (auto) 1.05, Nucleated RBC % 0, Sodium 138, Potassium 3.8, Chloride 105, Carbon Dioxide 27.0, Anion Gap 6, BUN 18, Creatinine 1.07, Estim Creat Clear Calc 66.33, Est GFR (MDRD) Af Amer 88, Est GFR (MDRD) Non-Af 73, BUN/Creatinine Ratio 16.8, Glucose 96, Calcium 8.9, Phosphorus 3.2, Magnesium 1.6, Total Bilirubin 0.70, AST 18, ALT 15 L, Alkaline Phosphatase 80, Total Protein 6.3 L, Albumin 2.9 L, Globulin 3.4, Albumin/Globulin Ratio 0.9, TSH 2.15 Micro: Microbiology 01/01/24 19:28 Mucosa - Nose SARS-CoV-2, Influenza & RSV (PCR) - Final Radiography Diagnostic Testing: Radiology Impression Lumbar Spine CT 01/01/24 19:09 IMPRESSION: 1. Persistent endplate irregularities at L4-5 which do not appear to be significantly changed. If indicated further evaluation with MRI may be beneficial. 2. Multilevel degenerative change with disc space narrowing and bony neural foraminal narrowing. Electronically Signed: Robert Whittington MD at 20:35 EDT , Chest X-Ray 01/01/24 20:05 IMPRESSION: No radiographic evidence of acute cardiopulmonary disease. Electronically Signed: Robert Whittington MD at 20:45 EDT Reading Location ID and State: [facility] / [place] Tel , Service support , Physical Exam Const alert, oriented x3 and average body habitus; Negative for no apparent distress Constitutional Narrative: Older, white male, lying in bed, at bedside, patient appears slightly uncomfortable and tearful due to frustration related to ongoing issues since his surgery HEENT head/scalp atraumatic and moist oral mucous membranes HEENT Narrative: Mallampati 2, no thrush Head and Scalp: normocephalic Resp normal respiratory effort, no retractions, no use of accessory muscles and clear to auscultation bilaterally Auscultation: Negative for rales, rhonchi or wheezes Cardio regular rate, regular rhythm, S1 normal heart sound, no rub, no gallops and no clicks; Negative for S2 normal heart sound Cardio Narrative: Loud systolic murmur GI normal to inspection, nondistended, normoactive bowel sounds, soft to palpation and non-tender Extremity no clubbing, cyanosis or edema Extremity Narrative: Pedal pulses are 2+ Neuro oriented x3, moves all extremities and no focal motor deficits Neuro Narrative: Generalized weakness noted however no focal deficits Speech: speech normal Psych Psych Narrative: Affect is extremely flat and patient appears depressed and tearful throughout conversation due to his frustration with his current issues Assessment & Plan Assessment/Plan (1) Hypokalemia: (2) Fever: (3) Severe malnutrition: (4) Intractable back pain: PLAN: Plan Fever -Patient with previous discitis and long-term antibiotic treatment with vancomycin and ceftriaxone -Stop date was 12/03/2023 -Repeat MRI showed acute on chronic osteomyelitis however per my discussion with Dr. Godoy he does not see any acute changes -Case discussed with ID by Dr. Godoy and plan is for CT-guided biopsy off antibiotics tomorrow and await culture results -Per IDs instruction, antibiotics on hold until MRI is obtained -Schedule Tylenol 1000 mg 3 times daily -Add as needed oxycodone 5 mg every 6 hours -continue IV Dilaudid every 3 hours as needed for breakthrough -Start gabapentin 300 mg 3 times daily -Start Celebrex 200 mg twice daily and monitor renal function closely--> will use only for 5 to 7 days -Will utilize Protonix 40 mg daily while on NSAIDs -Blood cultures are pending -UA is not consistent with infection -If MRI is negative could consider respiratory viral panel/COVID/flu/influenza panel -ID consultation -Orthopedic surgery consultation Intractable back pain/generalized weakness -Medications as above -Workup in progress -PT/OT consultation pending Hypokalemia -Resolved Severe malnutrition -Patient with significant weight loss since surgery -Attributes this to decreased appetite related to stress -Dietitian is consulted -Supplements added Multilevel spinal degenerative disease -Previous cervical fusion-2020 -Discectomy/laminectomy and fusion July 2023--> Dr. Godoy -History of spinal stenosis in the lumbosacral region -Continue pain medication as above -Continue home gabapentin -Continue home as needed baclofen Aortic stenosis -Patient has murmur on exam -Echocardiogram from 10/23/2023 shows EF of 60% with stage I diastolic dysfunction and a peak aortic valve gradient of 24 mmHg with a mean gradient of 12 mmHg CAD/hypertension/hyperlipidemia -Previous multivessel CABG-2011 -Continue home aspirin -Continue home atorvastatin -Patient does not appear to be on any current medications for blood pressure -As needed hydralazine is available -Will monitor DM-2 -Most recent hemoglobin A1c was 10/25/2023 and was 6.2 -Hold metformin -SSI -Accu-Cheks as ordered -Cardiac/carb controlled diet History of BPH -Patient is not on any medication for obstruction -Monitor clinically IBS -Restart Linaclotide at discharge Insomnia -Continue home trazodone History of opiate dependence -Avoid opiates as able DVT prophylaxis -SCDs only for now pending possible surgical intervention -If no surgical intervention required will start Lovenox twice daily CODE STATUS -Full code Charges/Coding Visit Charges Inpatient E&M: 84249 Subs Hosp L2
[2024-01-02] MEDS: Menthol/Lanolin/Calamine/Znox 113 GM Tube 1 APPLIC TOPICAL ×2 (08:02→21:05)
[2024-01-02] MEDS: Multivitamins,Therapeutic Tablet 1 TABLET PO (08:02)
[2024-01-02] MEDS: 0.9% Saline Lock 10 ML Syringe IV (09:18)
[2024-01-02] MEDS: HYDROmorphone 0.5 MG/0.5 ML SYRINGE IV (09:18)
--- NOTE | 2024-01-02 09:30 | MRI_ITS ---
STUDY: MRI LUMBAR SPINE WITH AND WITHOUT CONTRAST REASON FOR EXAM: Male, 68 years old. Back Pain with known discitis and osteomyleitis. sx jul 2023 previous MRI and xrays TECHNIQUE: Standardized fat and water weighted pulse sequences were obtained in the sagittal and axial planes. IV 15ml clariscan was administered for the contrast portion of the examination. COMPARISON: MRI of the lumbar spine dated October 23, 2023 and December 11, 2023. CT of the lumbar spine dated January 01, 2024 FINDINGS: * No interval change in diffuse edema throughout the L4 and L5 vertebral bodies and liquefaction of the intervertebral disc due to recent vertebral osteomyelitis and discitis. Small amount of anterior extruded disc material and trace fluid with enhancement redemonstrated. * No change in marked enhancement of the L4 and L5 vertebral bodies and portions of the disc space. * There is been no progression of cortical erosion or intramedullary osteolysis of either L4-L5 * There is interval narrowing of the L4-L5 disc space from moderate to severe with now [id number] contact. Redemonstration of Schmorl''s nodes on both sides of the central aspect of the L4-L5 disc space * No new epidural fluid collections are present. * Redemonstration of mild intramuscular edema in the medial aspect of the psoas muscles at the L4 and L5 levels, but without an abscess/fluid pocket in the affected muscle fibers. * No new foci of marrow edema are present. No new areas of vertebral osteomyelitis or discitis is present. No fracture or compression deformity is seen. * L4-L5: Severe disc space narrowing with a diffuse disc osteophyte complex. Left paracentral disc protrusion causing left lateral recess stenosis with nerve root compression and contributing to mild central canal stenosis. Normal right lateral recess. Moderate facet joint hypertrophy. Stable posterior surgical decompressive defect. Moderate right and severe left foraminal stenosis with nerve root compression. * No change in spinal alignment with straightening of the lordosis. * The remaining levels are unchanged with varying degrees of degeneration. Normal visualized sacral ala. MRI/Spine Lumbar W/WO Contrast IMPRESSION: 1. Acute on chronic osteomyelitis at L4-L5 demonstrated now over multiple months likely due to recurrent or indolent disease or continued inflammation as no additional bony destruction has occurred, although the disc space has narrowed compared to the prior studies which is likely due to secondary degeneration Electronically Signed: Arnav Nobles MD at 12:29 EDT ,
[2024-01-02] MEDS: Acetaminophen 500 MG Tablet 1000 MG PO ×2 (13:11→21:04)
[2024-01-02] MEDS: oxyCODONE 5 MG Tablet 10 MG PO ×2 (13:11→20:15)
[2024-01-02] MEDS: Celecoxib 200 MG Capsule PO ×2 (14:07→21:04)
[2024-01-02] MEDS: Gabapentin 400 MG Capsule PO ×2 (14:07→21:03)
--- NOTE | 2024-01-02 14:08 | CON.PCM.ID_ITS ---
Assessment & Plan Assessment/Plan (1) History of osteomyelitis: PLAN: Had lumbar laminectomy and discectomy L4-5 on 07/18/[address] Godoy here. After that, developed progressive pain, new fever and confusion. MRI shows suspected discitis/osteo. 10/25/23 had aspiration of disc/bone with orosco culture sent. No organism seen on gram stain, orosco-cxs finalized as neg. Discharged with picc, 6 weeks iv vanc/ceftriaxone with stop date 12/03/23. Now severe pain in back and fever at home for 2 weeks. MRI now shows continued inflammation but no further bone destruction. Holding off on starting abx while clinically stable. Biopsy planned per patient and his . Will follow, thank you (2) History of discitis: (3) Debility: HPI Consult Data Date of Consult: 01/02/24 HPI Narrative Reason for Consultation: osteo HPI Narrative: JARET FIGUEROA, is a 68 M who had lumbar laminectomy and discectomy L4-5 on 07/18/[address] Godoy here. After that, developed progressive pain, new fever and confusion. MRI shows suspected discitis/osteo. 10/25/23 had aspiration of disc/bone with orosco culture sent. No organism seen on gram stain, cxs finalized as neg. Discharged with picc, 6 weeks iv vanc/ceftriaxone with stop date 12/03/23. Was feeling ok when abx completed, but over past 2 weeks at home intermittent fever up to 103, excruciating back pain, some weakness, no incontinence. called my office, advised to go to ED. Admitted, MRI done. Full ROS performed and neg except as noted above. [facility] Medical History Bilirubinuria Contact with or exposure to other viral diseases Lumbosacral radiculopathy at L5 History of steroid therapy Smokeless tobacco use Tension headache Agent orange exposure Bilateral primary osteoarthritis of knee Wears hearing aid Cancer Alcohol use Diabetes Ambulates with cane Arthritis Prostate disease High cholesterol (~08/21/23) Restless legs Back pain Injury of head and neck Syncope History of IBS Shortness of breath on exertion History of pain when walking History of echocardiogram History of stress test Cardiology follow-up encounter Tear of medial meniscus of right knee Fibromyalgia BPH w urinary obs/LUTS Left knee DJD Right knee DJD Fusion of spine, cervical region Chondromalacia, right knee Chondromalacia, left knee Chondromalacia of both patellae COVID-19 virus detected (11/19/20) Nonrheumatic aortic (valve) stenosis with insufficiency Opioid dependence Obesity Asthma Hyperlipemia Essential (primary) hypertension Atherosclerotic heart disease of [place] coronary artery without angina pectoris Type 2 diabetes mellitus Spondylosis of lumbosacral region without myelopathy or radiculopathy Spinal stenosis of lumbosacral region Radiculopathy of lumbosacral region Degeneration of intervertebral disc of lumbosacral region Arthropathy of cervical facet joint Degeneration of cervical disc without myelopathy Cervical spondylosis Home Medications ?Medication ?Instructions ?Recorded ?Last Taken ?Type aspirin 81 mg tablet,delayed 81 mg PO DAILY HEART HEALTH 12/23/15 11/01/23 History release multivitamin 1 tab PO DAILY supplement 07/09/19 11/01/23 History albuterol sulfate 90 mcg/actuation 1 - 2 puff inhalation Q4H PRN PRN 04/21/22 Unknown Rx aerosol inhaler Wheezing #8.5 grams handicap placard #1 ea 04/21/22 Unknown Rx blood sugar diagnostic (FreeStyle #100 ea 09/15/22 Unknown Rx Lite Strips) blood-glucose meter (FreeStyle #1 ea 09/15/22 Unknown Rx Lite Meter kit) fluticasone propionate 50 1 - 2 spray intranasal BID PRN 04/27/23 10/31/23 Rx mcg/actuation nasal allergies, congestion #16 grams spray,suspension atorvastatin 40 mg tablet 40 mg PO QHS CHOLESTEROL #90 tabs 08/21/23 11/01/23 Rx trazodone 50 mg tablet 50 - 100 mg (1 - 2 x 50 mg) PO QHS 08/21/23 10/31/23 Rx sleep #90 tabs baclofen 10 mg tablet 10 mg PO TID PRN PRN muscle spasm 12/10/23 Unknown History acetaminophen 500 mg capsule 1,000 mg (2 x 500 mg) PO Q8H PRN 12/12/23 07/17/23 18:00 Rx PRN pain #3 caps metformin 500 mg tablet 500 mg PO BID 1 month #60 tabs 12/12/23 Unknown Rx gabapentin 300 mg capsule 300 mg PO TID 01/01/24 Unknown History oxycodone-acetaminophen 7.5 mg-325 1 tab PO BID 01/01/24 Unknown History mg tablet linaclotide 72 mcg capsule 72 mcg PO DAILY irritable colon 01/02/24 Unknown History (Linzess) Allergy/AdvReac Type Severity Reaction Status Date / Time adhesive tape Allergy Rash Verified 01/01/24 18:28 sertraline (From Zoloft) AdvReac Unknown Verified 01/01/24 18:28 Family History Brother Heart disease Myocardial infarction 60's CAD (coronary artery disease) Father Myocardial infarction 65 CAD (coronary artery disease) Mother HLD (hyperlipidemia) when son was 16 following MVA, healthy aside HLD. Surgical History S/P laminectomy Status post discectomy for herniated nucleus pulposus History of lateral meniscus repair of right knee (~2021) Hx laparoscopic cholecystectomy (~11/2022) Hx of bilateral cataract extraction H/O cervical spine surgery (08/2020) History of herniorrhaphy History of carpal tunnel release History of back surgery History of left heart catheterization (09/09/11) H/O coronary artery bypass surgery (09/14/11) Social History household members: spouse Smoking Status: Never smoker Smokeless tobacco user: chewing tobacco alcohol intake: current alcohol intake frequency: a few times a month substance use type: does not use caffeine: Yes Type: coffee Number of servings: 2 Physical Exam Const alert Constitutional Narrative: uncomfortable HEENT normocephalic and head/scalp atraumatic Eyes PERRL and EOMs intact bilaterally Neck supple and No nodes Resp normal air movement and clear to auscultation bilaterally Cardio regular rate and regular rhythm GI soft to palpation, non-tender and non-distended Extremity General Extremity: Negative for edema Skin no rashes or lesions noted Neuro CN's II-XII intact bilaterally Lab / Micro Data Attestation: I reviewed the patient's lab results. 01/02/24 06:01 01/02/24 06:01 Labs: Laboratory Results - last 24 hr 01/01/24 19:32: WBC 4.6, RBC 3.28 L, Hgb 9.6 L, Hct 29.0 L, MCV 88.4, MCH 29.3, MCHC 33.1, RDW Std Deviation 42.4, RDW Coeff of Frankie 13.1, Plt Count 229, MPV 8.1, Immature Gran % (Auto) 0.200, Neut % (Auto) 63.3, Lymph % (Auto) 21.1, [place] % (Auto) 13.6 H, Eos % (Auto) 1.1, Baso % (Auto) 0.7, Absolute Neuts (auto) 2.9, Absolute Lymphs (auto) 0.96, Nucleated RBC % 0, ESR 25 H, Sodium 135 L, P otassium 3.4 L, Chloride 102, Carbon Dioxide 29.0, Anion Gap 4 L, BUN 19 H, Creatinine 1.08, Estim Creat Clear Calc 65.72, Est GFR (MDRD) Af Amer 87, Est GFR (MDRD) Non-Af 72, BUN/Creatinine Ratio 17.6, Glucose 104, Lactic Acid 1.4, Calcium 8.7, Total Bilirubin 0.70, Direct Bilirubin 0.17, AST 18, ALT 16, Alkaline Phosphatase 85, C-React Prot Ext Range 85.90 H, Total Protein 6.7, A lbumin 3.0 L, Globulin 3.7, Albumin/Globulin Ratio 0.8 L, Lipase 39 01/01/24 21:47: Urine Color Yellow, Urine Clarity Clear, Urine pH 7.0, Ur Specific [place] 1.010, Urine Protein 30 H, Urine Glucose (UA) Normal, Urine Ketones Negative, Urine Occult Blood Negative, Urine Nitrite Negative, Urine Bilirubin Negative, Urine Urobilinogen 4 H, Ur Leukocyte Esterase Negative, Urine RBC 0 SEEN, Urine WBC 0 SEEN, Ur Squamous Epith Cells 0 SEEN, Urine Bacteria 0 SEEN, Urine Mucus 0 SEEN 01/02/24 06:01: WBC 4.1 L, RBC 3.32 L, Hgb 9.5 L, Hct 29.6 L, MCV 89.2, MCH 28.6, MCHC 32.1, RDW Std Deviation 42.6, RDW Coeff of Frankie 13.1, Plt Count 250, MPV 8.4, Immature Gran % (Auto) 0.500, Neut % (Auto) 55.4, Lymph % (Auto) 25.7, [place] % (Auto) 15.0 H, Eos % (Auto) 2.7, Baso % (Auto) 0.7, Absolute Neuts (auto) 2.3, Absolute Lymphs (auto) 1.05, Nucleated RBC % 0, Sodium 138, Potassium 3.8, Chloride 105, Carbon Dioxide 27.0, Anion Gap 6, BUN 18, Creatinine 1.07, Estim Creat Clear Calc 66.33, Est GFR (MDRD) Af Amer 88, Est GFR (MDRD) Non-Af 73, BUN/Creatinine Ratio 16.8, Glucose 96, Calcium 8.9, Phosphorus 3.2, Magnesium 1.6, Total Bilirubin 0.70, AST 18, ALT 15 L, Alkaline Phosphatase 80, Total Protein 6.3 L, Albumin 2.9 L, Globulin 3.4, Albumin/Globulin Ratio 0.9, TSH 2.15 Micro: Microbiology 01/01/24 19:28 Mucosa - Nose SARS-CoV-2, Influenza & RSV (PCR) - Final Imaging Radiology Impression Lumbar Spine CT 01/01/24 19:09 IMPRESSION: 1. Persistent endplate irregularities at L4-5 which do not appear to be significantly changed. If indicated further evaluation with MRI may be beneficial. 2. Multilevel degenerative change with disc space narrowing and bony neural foraminal narrowing. Electronically Signed: Robert Whittington MD at 20:35 EDT , Chest X-Ray 01/01/24 20:05 IMPRESSION: No radiographic evidence of acute cardiopulmonary disease. Electronically Signed: Robert Whittington MD at 20:45 EDT , Lumbar Spine MRI 01/02/24 09:30 IMPRESSION: 1. Acute on chronic osteomyelitis at L4-L5 demonstrated now over multiple months likely due to recurrent or indolent disease or continued inflammation as no additional bony destruction has occurred, although the disc space has narrowed compared to the prior studies which is likely due to secondary degeneration Electronically Signed: Arnav Nobles MD at 12:29 EDT ,
--- NOTE | 2024-01-02 14:21 | CHAPLAIN ---
Type of Pastoral Visit _x__ Initial Visit ___ Follow-up Visit ___ On-call Visit ___ General Patient Visit ___ Spiritual Assessment ___ Family Conference ___ Bereavement ___ Rapid Response ___ Code Blue ___ Other (describe below) Pastoral Care Referral From _x__ Patient ___ Family ___ Nurse ___ Physician ___ Ribbon Hand ___ Operating Systems Programmer ___ Other (describe below) Sacrament/Intervention _x__ Active listening ___ Anointing ___ Worship ___ Bereavement ___ Communion _x__ Radha exploration ___ ___ Life review _x__ Prayer ___ Reconciliation ___ Sacrament of Sick _x__ Supportive presence ___ Wedding ___ Other (describe below) Pastoral Comments patient was seen about two weeks ago for similar situation; pt just returned from MRI which in itself he finds discomfort; pt is in pain and RN is in room to address that pain; spouse is at bedside; pt is tearful as he describes his situation, concerns, and pain; pt says he looks to God but also has discouragement due to what he has gone through in his body; pt is welcoming of presence and prayers for support
[2024-01-02] MEDS: DULoxetine Hcl 30 MG Capsule PO (14:34)
--- NOTE | 2024-01-02 16:14 | CASEMGMT ---
[facility] calls [facility] questioning if the pt is wanting to stay here or [facility] to the [facility] in regard to billing purposes. RN CM to pt room at this time and pt states that he is wanting to stay here. Pt educated that his primary insurance will be billed then and not the [facility]. Pt states agreeance and understanding. [facility] faxed a declination of transfer form to this RN CM. RN CM to pt room and pt states that he wishes to wait until tomorrow to sign this when his is here. Form placed in pt chart. TC back to the [facility] and the [facility] states that this is OK. CM to follow.
[2024-01-02] MEDS: Atorvastatin Calcium 40 MG Tablet PO (21:03)
[2024-01-02] MEDS: traZODone 50 MG Tablet PO (21:03)
[2024-01-03] MEDS: oxyCODONE 5 MG Tablet 10 MG PO ×2 (02:34→08:40)
[2024-01-03 02:52] VITALS: BP 116/79; PULSE 100; RESP 17; TEMP 36.8; O2SAT 98
[2024-01-03] MEDS: Acetaminophen 500 MG Tablet 1000 MG PO ×2 (05:14→14:18)
[2024-01-03] MEDS: Gabapentin 400 MG Capsule PO ×2 (05:14→14:18)
[2024-01-03] MEDS: Baclofen 10 MG Tablet PO (05:14)
[2024-01-03] MEDS: KCL 20MEQ in 0.9% NS 20 MEQ/1,000 ML IV.SOLN. 70 MEQ IV (05:17)
[2024-01-03 06:00] VITALS: BMI 25.2
[2024-01-03 07:25] LABS: Absolute Lymphocyte Count 0.97 X10^3/uL (0.83-4.51); Absolute Neutrophil Count 2.1 X10^3/uL (2.0-7.7); Basophil# 0.01 X10^3/uL; Basophil% 0.3 % (0-1); Eosinophil# 0.19 X10^3/uL; Hematocrit 28.8 % (40-54); Hemoglobin 9.5 g/dL (13.0-16.5); Lymphocyte # 0.97 X10^3/ul (0.83-4.51); Lymphocyte % 25.5 % (19-41); Mean Corpuscular Hgb 29.2 pg (27.0-32.0); Mean Corpuscular Volume 88.6 fL (80-94); Monocyte# 0.57 X10^3/uL; NRBC Flagged by Analyzer 0 % (0-5); Neutrophil # 2.05 X10^3/uL (2.7-7.7); Neutrophil % 53.9 % (47-70); Platelet Count 226 K/mm3 (150-450); RBC Distribution Width SD 42.4 fl (35.1-43.9); Red Blood Count 3.25 M/mm3 (4.6-6.2); White Blood Count 3.8 K/mm3 (4.4-11.0)
[2024-01-03 08:18] LABS: Anion Gap 9 (5-15); BUN 15 mg/dL (7-18); Calcium,Total 8.6 mg/dL (8.5-10.1); Chloride 108 mmol/L (98-107); Creatinine, Serum 0.94 mg/dL (0.70-1.30); EST Glomerular Filtration Rate 84 mL/min (>60); Est Glom Filt Rate - Afr Amer 102 mL/min (>60); Glucose 93 mg/dL (74-106); Potassium 3.8 mmol/L (3.5-5.1); Sodium Level 138 mmol/L (136-145)
[2024-01-03 08:25] VITALS: BP 109/81; PULSE 66; RESP 18; TEMP 36.4; O2SAT 100
[2024-01-03] MEDS: Multivitamins,Therapeutic Tablet 1 TABLET PO (08:31)
--- NOTE | 2024-01-03 09:46 | CASEMGMT ---
MATIAS SAUER Readmission Note Previous Admission:12/10/23-12/12/23 Diagnosis: recurrent low back pain, recent hx of discitis DC Disposition: Home Current Admission: Admitted 01/01/24 Current Diagnosis: intractable back pain with recent discitis Pt presented to ER with recurrent low back pain. Pt has recent hx of L4-5 laminectomy complicated by discitis/osteomyelitis and debility. Last hospital stay ID consulted and planned to monitor pt off of atb. Pt CT/MRI showed osteo per ID not but bone changes from osteo are exptected to be present for several mos even after successful tx. MATIAS CM into pt room, pt at bedside. Pt states he has followed up with pain mgmt and pcp and has seen an ortho at [facility]. Pt reports taking meds as ordered and pt feels he needs more IV atb. He states should this be ordered, he would like the same set up with the same infusion and HHC companies. Pt and speaking of trf'ing to another hospital as he states he was supposed to have a procedure but the physician is not working this week who does it. Currently pt denies any homegoing needs. Pt does not want to be [facility]'d to the [facility]. He signed the [facility] declination form that was faxed by the [facility]. This was faxed back to them at this time. DC Plan: TBD pending consults and ID recs.
[2024-01-03] MEDS: Celecoxib 200 MG Capsule PO (10:41)
[2024-01-03] MEDS: Menthol/Lanolin/Calamine/Znox 113 GM Tube 1 APPLIC TOPICAL (10:41)
--- NOTE | 2024-01-03 10:54 | CASEMGMT ---
Insurance review for hospitals In-network with?[facility] insurance if transfer is recommended is as follows:?[facility], [facility], [facility], [facility], [facility]), [facility] and . Denisha Salazar, Discharge Planning Asst.
[2024-01-03 11:21] VITALS: O2SAT 100
--- NOTE | 2024-01-03 13:55 | PCM.DC.SUM ---
Providers Date of Admission: 01/02/24 Date of Discharge: 01/03/24 Primary Care Physician: Dr. Marlen Bear MD Consultations 01/02/24 00:31 Consult: Infectious Disease Routine Consulting Provider: Tarik Wilkinson Reason for Consult: Back with history of Discitis and Osteomyelitis. EMERGENT Consult: No Notified: Yes Date Notified: 01/02/24 Time Notified: 01:21 Method of Notification: Answering Service Consult: Orthopedics Routine Consulting Provider: Ventura Godoy Reason for Consult: Back Pain with history pf Discitis and Osteomyelitis. EMERGENT Consult: No Notified: Yes Date Notified: 01/02/24 Time Notified: 08: Method of Notification: Verbal Reason For Visit: INTRACTABLE BACK PAIN W/RECENT DISCITIS & Diagnosis Discharge Diagnosis (1) Hypokalemia: Status: Acute Code(s): E87.6 - Hypokalemia (2) Fever: Status: Acute Code(s): R50.9 - Fever, unspecified (3) Severe malnutrition: Status: Acute Code(s): E43 - Unspecified severe protein-calorie malnutrition (4) Intractable back pain: Status: Acute Code(s): M54.9 - Dorsalgia, unspecified Medications at Discharge Home Medications aspirin 81 mg tablet,delayed release 81 mg PO DAILY HEART HEALTH 12/23/15 multivitamin 1 tab PO DAILY supplement 07/09/19 albuterol sulfate 90 mcg/actuation aerosol inhaler 1 - 2 puff inhalation Q4H PRN PRN Wheezing #8.5 grams 04/21/22 handicap placard #1 ea 04/21/22 blood sugar diagnostic (FreeStyle Lite Strips) #100 ea 09/15/22 blood-glucose meter (FreeStyle Lite Meter kit) #1 ea 09/15/22 fluticasone propionate 50 mcg/actuation nasal spray,suspension 1 - 2 spray intranasal BID PRN allergies, congestion #16 grams 04/27/23 atorvastatin 40 mg tablet 40 mg PO QHS CHOLESTEROL #90 tabs 08/21/23 trazodone 50 mg tablet 50 - 100 mg (1 - 2 x 50 mg) PO QHS sleep #90 tabs 08/21/23 baclofen 10 mg tablet 10 mg PO TID PRN PRN muscle spasm 12/10/23 metformin 500 mg tablet 500 mg PO BID 1 month #60 tabs 04/30/24 oxycodone-acetaminophen 7.5 mg-325 mg tablet 1 tab PO BID 01/01/24 linaclotide 72 mcg capsule (Linzess) 72 mcg PO DAILY irritable colon 01/02/24 acetaminophen 500 mg tablet 1,000 mg (2 x 500 mg) PO Q8 #0 tabs 01/03/24 celecoxib 200 mg capsule 200 mg PO BID 5 days #10 caps 01/03/24 duloxetine 30 mg capsule,delayed release 30 mg PO DAILY #30 caps 01/03/24 gabapentin 400 mg capsule 400 mg PO TID #90 caps 01/03/24 oxycodone 5 mg tablet 10 mg (2 x 5 mg) PO Q6H PRN PRN Pain Score 6-10 7 days #56 tabs 01/03/24 pantoprazole 40 mg tablet,delayed release 40 mg PO DAILY #30 tabs 01/03/24 Hospital Course Operations None Procedures - (CT lumbar spine/chest x-ray/MRI lumbar spine) Summary of Care Provided Minutes Spent on Discharge: 40 Hospital Course: Mr. Bates is a 68-year-old white male who who has a history of a previous lumbar laminectomy and fusion on 07/18/2023 who was then readmitted in October 2023 with a diagnosis of discitis and osteomyelitis. Biopsy cultures were negative however he was treated with 6 weeks of IV vancomycin and ceftriaxone at the recommendation of infectious disease. Stop date for the antibiotics was 12/03/2023. Since that point in time he has had increasing low back pain and had a fever of 102.8 the day prior to presentation at which time they called the infectious disease office on the day of presentation and they told him to be evaluated the emergency department. He denied any stable anesthesia, urinary retention, bowel or bladder incontinence, lower extremity weakness and had had no spinal manipulation or surgery since that point in time. Vital signs on presentation showed temperature 98.4, heart rate 106, respiratory was 22, blood pressure was 129/73 and pulse ox 100% on room air. His CBC showed a anemia and a monocytosis but was otherwise unremarkable. ESR was elevated at 25 and CRP was elevated to 85.9. Chemistry panel showed mild hyponatremia with a sodium of 135, mild hypokalemia with potassium of 3.4, normal renal function, normal glucose level and normal liver functions. Lactic acid was 1.4. Lipase was 39 and UA is not consistent with infection. CT of the lumbar spine showed persistent endplate irregularities at L4 and L5 which did not appear to be significantly changed and multilevel degenerative changes with the space narrowing and bony neuroforaminal narrowing. Chest x-ray showed no acute findings. Patient states he is upset with Dr. Godoy and did not even want to see him this hospitalization however he was informed that since he did his initial surgery he needs to see him to help with management while he was here. I did discuss the case with Dr. Godoy and he did not feel that there is any new infection based on his review of the MRI and after discussion with infectious disease wanted to obtain a CT-guided biopsy off antibiotics. Unfortunately, interventional radiology was not available this week. The patient was monitored off antibiotics and had no fevers during his hospital course. Blood cultures were obtained and pending at the time of discharge. I discussed the case with infectious disease and given the fact that we were unable to obtain a CT-guided biopsy and that the patient had no fever or elevated white count here at this time. We also discussed that the patient was feeling much better today and that he was anxious to go home and asked if this could be done as an outpatient. After discussion with infectious disease they felt that we could proceed as an outpatient as long as his pain was controlled and he was comfortable and functional. Given the fact that he was both from the patient and the he will be discharged on his current pain regimen which includes duloxetine 30 mg daily, short course of oxycodone 10 mg every 6 hours as needed, Celebrex 200 mg twice daily for only 5 days given his cardiac history, continued baclofen and increased dose of gabapentin. His Vicodin and aspirin were held at the time of discharge given the above prescriptions and pending CT-guided biopsy. Dr. Wilkinson will order a CT-guided biopsy to be performed next week and follow-up him in the outpatient setting in his office. He is to call if he has worsening pain or recurrent fevers. We will monitor his blood cultures here and he is aware that if they are positive he may need to come back for further treatment. Prescriptions for the above were sent to local pharmacy. The patient did inform us prior to discharge that he no longer wanted to follow-up with Dr. Godoy and would be following up at the [facility]. He will make an appointment after he sees Dr. Wilkinson. He also has an upcoming appointment with Dr. Gagnon for nerve cauterization and he is going to call to see if they would like to proceed with this tomorrow or hold off since there is concern of infection at this time. The patient was discharged in stable condition on 01/03/2024 with considerable improvement from the day of admission with outpatient plan solidified. Discharge diagnoses: Intermittent fever Intractable back pain-improved Generalized weakness-improved Hypokalemia-resolved Severe malnutrition Multilevel spinal degenerative disease Aortic stenosis CAD Hypertension Hyperlipidemia DM-2 History of BPH without obstruction IBS Insomnia History of opiate dependence Physical Exam Narrative Patient states his pain is much better controlled. He is asking if he can go home. I did discuss the case with infectious disease and they felt he could go home and they would order the bone biopsy as an outpatient to figure out if more treatment or any surgical intervention would be required and then they could make the outpatient referral as the patient does not want to follow-up with Dr. Godoy here any longer and plans to follow-up at the [facility]. Const alert, oriented x3, no apparent distress and average body habitus Constitutional Narrative: Older, white male, sitting up in bed, at bedside, patient appears much more comfortable with no signs of distress and was joking with me General Appearance: cooperative, comfortable, well kempt and well developed Orientation / Consciousness: awake, oriented to person, oriented to place and oriented to time Exam Limitations: no limitations HEENT normocephalic, head/scalp atraumatic and moist oral mucous membranes HEENT Narrative: Mild hearing loss, Mallampati is 2, no thrush Eyes PERRL and EOMs intact bilaterally Eyes Narrative: No scleral icterus Neck no lymphadenopathy and supple Neck Narrative: Trachea midline, no thyroid enlargement Resp normal respiratory effort, no retractions, no use of accessory muscles and clear to auscultation bilaterally Auscultation: Negative for rales, rhonchi or wheezes Cardio regular rate, regular rhythm, S1 normal heart sound, no rub, no gallops and no clicks; Negative for S2 normal heart sound or no murmurs Cardio Narrative: 3 out of 6 systolic murmur loudest at right upper sternal border with a soft S2 GI normal to inspection, nondistended, normoactive bowel sounds, soft to palpation and non-tender Extremity no clubbing, cyanosis or edema Extremity Narrative: Pedal pulses are 2+ Skin no rashes or lesions noted, no wounds, skin turgor normal and no jaundice Neuro oriented x3, CN's II-XII intact bilaterally, moves all extremities and no focal motor deficits Neuro Narrative: Generalized weakness noted however no focal deficits Speech: speech normal Psych affect normal Psych Narrative: Patient is very pleasant and interacts normally, no distress today, jovial at times Weight / BMI Weight Weight: 79.9 kg Body Mass Index (BMI) 25.2 ABG / Lab / Microbiology Data 01/03/24 06:59 01/03/24 06:59 Laboratory: Laboratory Results - last 24 hr 01/03/24 06:59: WBC 3.8 L, RBC 3.25 L, Hgb 9.5 L, Hct 28.8 L, MCV 88.6, MCH 29.2, MCHC 33.0, RDW Std Deviation 42.4, RDW Coeff of Frankie 13.0, Plt Count 226, MPV 8.0, Immature Gran % (Auto) 0.300, Neut % (Auto) 53.9, Lymph % (Auto) 25.5, Payette % (Auto) 15.0 H, Eos % (Auto) 5.0, Baso % (Auto) 0.3, Absolute Neuts (auto) 2.1, Absolute Lymphs (auto) 0.97, Nucleated RBC % 0, Sodium 138, Potassium 3.8, Chloride 108 H, Carbon Dioxide 21.0, Anion Gap 9, BUN 15, Creatinine 0.94, Estim Creat Clear Calc 75.50, Est GFR (MDRD) Af Amer 102, Est GFR (MDRD) Non-Af 84, BUN/Creatinine Ratio 16.0, Glucose 93, Calcium 8.6 Microbiology: Microbiology 01/01/24 19:28 Mucosa - Nose SARS-CoV-2, Influenza & RSV (PCR) - Final D/C Instructions Discharge Diet: Low fat / Low cholesterol and 1800 Calorie Control Diet Discharge Activity: Return to Normal Activity and Use Walker (If needed) Call your doctor if you observe: Fever of 101 or Higher (Call Dr. Wilkinson's office) and Uncontrolled pain (Call Dr. Wilkinson's office) Meaningful Use Info Meaningful Use Meaningful Use Diagnoses (Choose all that apply): None applicable Ischemic Stroke Statin Dosing Therapy Reference: STATIN DOSE THERAPY REFERENCE: * Patients > 75 years receive moderate or high dose statin therapy. * Patients 75 years or YOUNGER should receive HIGH intensity statin dose unless contraindicated. You will be required to document reason for non-treatment if statin daily dose does not meet guidelines. HIGH DOSE STATIN THERAPY DAILY Atorvastatin > than or = to 40 mg Rosuvastatin > than or = to 20 mg Amlodipine + Atorvastatin > than or = to 2.5/40 mg Ezetimibe + Simvastatin 10/80 mg Simvastatin 80mg Discharge Plan Admission Admit Date/Time: 01/02/24 14:54 Primary Reason for Your Visit: Intractable back pain Attending Provider: Julia Mar Primary Care Provider: Marlen Bear Consulting Providers: Tarik Wilkinson; Adeel Rosado; Ventura Godoy Instructions Additional Instructions / Restrictions: 1. Please follow-up at the [facility] with a back surgeon at the direction of Dr. Wilkinson (infectious disease) after bone biopsy obtained 2. Dr. Wilkinson's office will call you to schedule outpatient bone biopsy likely to be done early next week 3. Please follow-up with Dr. Gagnon as scheduled and call office to see if they want to keep nerve cauterization or reschedule for a later date Discharge Orders/Prescriptions Prescriptions: New acetaminophen 500 mg Tablet 1,000 mg PO Q8 Qty: 0 0RF celecoxib 200 mg Capsule 200 mg PO BID 5 Days Qty: 10 0RF duloxetine 30 mg Capsule,Delayed Release(Dr/Ec) 30 mg PO DAILY Qty: 30 1RF gabapentin 400 mg Capsule 400 mg PO TID Qty: 90 0RF pantoprazole 40 mg Tablet,Delayed Release (Dr/Ec) 40 mg PO DAILY Qty: 30 0RF oxycodone 5 mg Tablet 10 mg PO Q6H PRN PRN (Reason: Pain Score 6-10) 7 Days Qty: 56 0RF Continued multivitamin Tablet 1 tab PO DAILY (DME) handicap placard See Rx Instructions .Route .MEDSUPPLY Qty: 1 0RF Rx Instructions: fatique , pain in right knee , oteoarathritis baclofen 10 mg tablet 10 mg PO TID PRN PRN (Reason: muscle spasm) metformin 500 mg tablet 500 mg PO BID 30 Days Qty: 60 2RF Rx Instructions: Start from 12/14/2023 Linzess 72 mcg capsule 72 mcg PO DAILY albuterol sulfate 90 mcg/actuation HFA aerosol inhaler 1 - 2 puff INHALATION Q4H PRN PRN (Reason: Wheezing) Qty: 8.5 3RF (DME) FreeStyle Lite Strips Strip See Rx Instructions .Route Qty: 100 3RF Rx Instructions: Twice daily (DME) blood-glucose meter [FreeStyle Lite Meter] Kit See Rx Instructions .Route Qty: 1 0RF Rx Instructions: Test twice daily fluticasone propionate 50 mcg/actuation spray,suspension 1 - 2 spray intranasal BID PRN (Reason: allergies, congestion) Qty: 16 3RF Rx Instructions: administer into each nostril; 2 sprays in each nostril for the first week atorvastatin 40 mg tablet 40 mg PO QHS Qty: 90 3RF trazodone 50 mg tablet 50 - 100 mg PO QHS Qty: 90 3RF Held aspirin 81 MG tablet,delayed release (DR/EC) 81 mg PO DAILY Hold Instructions: Hold until bone biopsy is obtained and then restart oxycodone-acetaminophen 7.5-325 mg tablet 1 tab PO BID Hold Instructions: Until oxycodone and Tylenol have been stopped by Dr. Gagnon Discontinued acetaminophen 500 mg capsule 1,000 mg PO Q8H PRN PRN (Reason: pain) Qty: 3 0RF gabapentin 300 mg capsule 300 mg PO TID Referrals / Follow Up: Juan Carlos Gagnon MD [Med Staff - Active Staff] - See Referral Note (Call office and discuss upcoming nerve cauterization procedure and outpatient follow-up per their recommendations) Marlen Bear MD [Primary Care Provider] - Within 2 Weeks Tarik Wilkinson MD [Med Staff - Active Staff] - See Referral Note (As directed by his office after bone biopsy) Disposition Disposition (needs filled in before D/C Order can be placed): Home, Self Care Charges/Coding Visit Charges Inpatient E&M: 13900 Disch Hosp >30min
--- NOTE | 2024-01-03 14:13 | CASEMGMT ---
Spoke with hospitalist, pt to dc home and f/u as outpt. RN CM into pt room, pt present. Pt denies any homegoing needs. He states he feels strong enough and still does things around the house even with the pain. is in agreement. Pt ready for dc.
[2024-01-03 14:17] VITALS: BP 118/86; PULSE 75; RESP 18; TEMP 36.9; O2SAT 100
== END 2024-01-03 14:41 | disposition home or self-care (01) | DRG 637 ==
LOC: ED 22:54 → MS3 23:41
PROVIDERS: Admitting Provider Internal Medicine; Emergency Provider Emergency Medicine; PCP Internal Medicine; Visit Provider Internal Medicine
DX: E11.69 Type 2 diabetes mellitus with other specified complication (principal); E43 Unspecified severe protein-calorie malnutrition; M46.26 Osteomyelitis of vertebra, lumbar region; I10 Essential (primary) hypertension; I35.0 Nonrheumatic aortic (valve) stenosis; J45.909 Unspecified asthma, uncomplicated; G25.81 Restless legs syndrome; E87.6 Hypokalemia; E78.00 Pure hypercholesterolemia, unspecified; I25.10 Atherosclerotic heart disease of native coronary artery without angina pectoris; F17.220 Nicotine dependence, chewing tobacco, uncomplicated; M19.90 Unspecified osteoarthritis, unspecified site; M25.561 Pain in right knee; M25.562 Pain in left knee; M79.7 Fibromyalgia; Z79.84 Long term (current) use of oral hypoglycemic drugs; R50.9 Fever, unspecified; R53.81 Other malaise; G47.00 Insomnia, unspecified; Z95.1 Presence of aortocoronary bypass graft; Z90.49 Acquired absence of other specified parts of digestive tract; Z79.82 Long term (current) use of aspirin; Z79.899 Other long term (current) drug therapy; Z79.51 Long term (current) use of inhaled steroids; Z98.41 Cataract extraction status, right eye; Z98.42 Cataract extraction status, left eye; Z87.39 Personal history of other diseases of the musculoskeletal system and connective tissue; R53.1 Weakness
CPT/HCPCS: 36415; 71045; 72131; 72158; 80048; 80053; 80076; 81001; 83605; 83690; 83735; 84100; 84443; 85025; 86140; 87040; 87631; 94668; 97162; 99285; A9575; J7050; A4216

== ENCOUNTER → 2024-01-12 | Outpatient (CLI) | payer MEDICARE, SELFPAY ==
[2024-01-12] VITALS (17 sets, daily range): BP systolic 112–152; BP diastolic 58–92; PULSE 68–75; RESP 13–18; TEMP 36.3; O2SAT 94–100; BMI 23.6
--- NOTE | 2024-01-12 | BONBX_PTH ---
PATIENT: JARET FIGUEROA LOC: CT U#:[id number] AGE/SX: 68/M ROOM: RE01/12/[address]: Dr. Marlen Bear MD : 1955 BED: DIS: 01/12/2024 SPEC #: [id number] RECD: 01/12/24 13:25 STATUS: CHYNA RECarlos #: [id number] ZANE: 01/12/24 00:[address]: Bjorn Bradshaw DEPT: SURGICAL PATHOLOGY RECD BY: Deonte Brown ENTERED: 01/15/24 07:57 SP TYPE: Bone OTHR DR: Dr. Marlen Bear MD Tissues: Bone of upper extremity, NOS Procedures: Decalcification bone/plaque Surgery Specimen Level III Surgery Specimen Level V Comments: @ Ordering doctor for DEC edited from to @ by NICK at 01/15/24 1359 @ Ordering doctor for SUIII edited from to @ by NICK at 01/15/24 1359 @ Ordering doctor for SUV edited from to @ by NICK at 01/15/24 1359 @ Submitting doctor edited from to @ by NICK at 01/15/24 0239 HEADER OPERATION: CT guided spine biopsy L4-L5 PRE-OP DIAGNOSIS: Osteomyelitis TISSUE SUBMITTED: Core x11 gauge MICROSCOPIC DIAGNOSIS L4-5, core biopsy: Fragments of blood clots, negative for malignancy. See comment. JAMES/ 01/16/2024 COMMENT The specimen entirely consists of blood clot. No bone tissue is identified. This case has been reviewed in consultation with Dr. Lopez who concurs with the above diagnosis. MICROSCOPIC DESCRIPTION Slides are reviewed. GROSS DESCRIPTION Received is one container labeled with the patient's name and not further designated. The specimen consists of multiple fragments of blood clot mixed with a few possible minute fragments of bone in aggregate 1.0 x 1.0 x 0.1cm. The entire specimen is submitted in one cassette after decalcification. JAMES/ 01/15/2024 TC: 5 CPT:45317,43260
--- NOTE | 2024-01-12 10:46 | CT_ITS ---
PROCEDURE: CT GUIDED biopsy and aspiration of the right L4-L5 vertebral levels. DATE: January 12, 2024. INDICATION: Male, 68 years old. Osteomyelitis. PHYSICIAN: Jaspreet Armstrong M.D. RADIATION DOSAGE (If Supplied By Facility): CTDIvol = ( 18.99 ) mGy, DLP = ( 397.72 ) mGycm PROCEDURE: The risks, benefits, and alternatives to the procedure were explained to the patient. The specific risk of hemorrhage requiring further treatment or intervention was detailed and accepted. Follow-up instructions were discussed with the patient as well. Written informed consent was obtained. The patient was brought into the CT suite and placed in the prone position. . An appropriate entry site was identified. The overlying skin was prepped and draped in the usual sterile fashion. 1% lidocaine was administered subcutaneously for local anesthesia. Conscious sedation was performed. The patient received 4 mg of Versed and 100 mcg of fentanyl intravenously. The patient was independently monitored by the department nurse. Under CT guidance, the orthopedic surgeon perform aspiration biopsies. The specimens were then placed in the appropriate fluid and transported to the laboratory for analysis. Hemostasis was obtained. The patient tolerated the procedure well without immediate complications. CT/Biopsy/Inj or Needle Placement IMPRESSION: Successful CT guided aspiration of the L4-L5 vertebrae., as described above. Electronically Signed: Jaspreet Armstrong MD at 13:51 EDT ,
[2024-01-12 11:31] LABS: Partial Thromboplast Time 30.1 Seconds (24.1-36.2); Prothrombin Time (Protime)PT. 13.4 SECONDS (11.7-14.9)
[2024-01-12] MEDS: 0.9% Normal Saline (250mL Bag) 250 ML 15 ML IV (12:32)
--- NOTE | 2024-01-12 12:32 | CONS.ORTHO ---
HPI Consult Data Date of Consult: 01/12/24 HPI Narrative HPI Narrative: I was requested to review the patient's imaging and discuss possibility of performing a CT-guided biopsy for his L4-5 discitis. I have performed a biopsy in October for the same pathology for him, but did not grow anything. Patient has persistent pain despite prolonged Abx, and ID suspects persistent/resistant infection. Following is his previous history: 10/25/23: From a review of his records and discussion with Dr. Godoy, patient underwent L4-5 revision laminectomy discectomy in July which was complicated with a CSF leak that was sealed intraoperatively. He improved after the surgery but had persistent pain that required evaluation by an MRI. The MRI was denied by insurance in August. He was then admitted and evaluated with an MRI and CT over the last few days which revealed an L4-5 discitis. While patient has been started on empiric antibiotic, ID recommends a CT-guided biopsy for tissue diagnosis as well as culture sensitivity to allow more targeted antibiotic treatment. [facility] Medical History Bilirubinuria Contact with or exposure to other viral diseases Lumbosacral radiculopathy at L5 History of steroid therapy Smokeless tobacco use Tension headache Agent orange exposure Bilateral primary osteoarthritis of knee Wears hearing aid Cancer Alcohol use Diabetes Ambulates with cane Arthritis Prostate disease High cholesterol (~08/21/23) Restless legs Back pain Injury of head and neck Syncope History of IBS Shortness of breath on exertion History of pain when walking History of echocardiogram History of stress test Cardiology follow-up encounter Tear of medial meniscus of right knee Fibromyalgia BPH w urinary obs/LUTS Left knee DJD Right knee DJD Fusion of spine, cervical region Chondromalacia, right knee Chondromalacia, left knee Chondromalacia of both patellae COVID-19 virus detected (11/19/20) Nonrheumatic aortic (valve) stenosis with insufficiency Opioid dependence Obesity Asthma Hyperlipemia Essential (primary) hypertension Atherosclerotic heart disease of [place] coronary artery without angina pectoris Type 2 diabetes mellitus Spondylosis of lumbosacral region without myelopathy or radiculopathy Spinal stenosis of lumbosacral region Radiculopathy of lumbosacral region Degeneration of intervertebral disc of lumbosacral region Arthropathy of cervical facet joint Degeneration of cervical disc without myelopathy Cervical spondylosis Home Medications ?Medication ?Instructions ?Recorded ?Last Taken ?Type aspirin 81 mg tablet,delayed 81 mg PO DAILY HEART HEALTH 12/23/15 11/01/23 History release multivitamin 1 tab PO DAILY supplement 07/09/19 11/01/23 History albuterol sulfate 90 mcg/actuation 1 - 2 puff inhalation Q4H PRN PRN 04/21/22 Unknown Rx aerosol inhaler Wheezing #8.5 grams handicap placard #1 ea 04/21/22 Unknown Rx blood sugar diagnostic (FreeStyle #100 ea 09/15/22 Unknown Rx Lite Strips) blood-glucose meter (FreeStyle #1 ea 09/15/22 Unknown Rx Lite Meter kit) fluticasone propionate 50 1 - 2 spray intranasal BID PRN 04/27/23 10/31/23 Rx mcg/actuation nasal allergies, congestion #16 grams spray,suspension atorvastatin 40 mg tablet 40 mg PO QHS CHOLESTEROL #90 tabs 08/21/23 11/01/23 Rx trazodone 50 mg tablet 50 - 100 mg (1 - 2 x 50 mg) PO QHS 08/21/23 10/31/23 Rx sleep #90 tabs baclofen 10 mg tablet 10 mg PO TID PRN PRN muscle spasm 12/10/23 Unknown History metformin 500 mg tablet 500 mg PO BID 1 month #60 tabs 12/12/23 Unknown Rx linaclotide 72 mcg capsule 72 mcg PO DAILY irritable colon 01/02/24 Unknown History (Linzess) acetaminophen 500 mg tablet 1,000 mg (2 x 500 mg) PO Q8 #0 tabs 01/03/24 Unknown Rx celecoxib 200 mg capsule 200 mg PO BID 5 days #10 caps 01/03/24 Unknown Rx duloxetine 30 mg capsule,delayed 30 mg PO DAILY #30 caps 01/03/24 Unknown Rx release gabapentin 400 mg capsule 400 mg PO TID #90 caps 01/03/24 Unknown Rx oxycodone 5 mg tablet 10 mg (2 x 5 mg) PO Q6H PRN PRN 01/03/24 Unknown Rx Pain Score 6-10 7 days #56 tabs pantoprazole 40 mg tablet,delayed 40 mg PO DAILY #30 tabs 01/03/24 Unknown Rx release Allergy/AdvReac Type Severity Reaction Status Date / Time adhesive tape Allergy Rash Verified 01/12/24 11:26 sertraline (From Zoloft) AdvReac Unknown Verified 01/12/24 11:26 Family History Brother Heart disease Myocardial infarction 60's CAD (coronary artery disease) Father Myocardial infarction 65 CAD (coronary artery disease) Mother HLD (hyperlipidemia) when son was 16 following MVA, healthy aside HLD. Surgical History S/P laminectomy Status post discectomy for herniated nucleus pulposus History of lateral meniscus repair of right knee (~2021) Hx laparoscopic cholecystectomy (~11/2022) Hx of bilateral cataract extraction H/O cervical spine surgery (08/2020) History of herniorrhaphy History of carpal tunnel release History of back surgery History of left heart catheterization (09/09/11) H/O coronary artery bypass surgery (09/14/11) Social History household members: spouse Smoking Status: Former smoker Smokeless tobacco user: chewing tobacco alcohol intake: current alcohol intake frequency: a few times a month substance use type: does not use caffeine: Yes Type: coffee Number of servings: 2 Vital Signs Vital Signs Vital Signs: 01/12/24 11:30 01/12/24 11:30 Temperature 97.3 F L Temperature Source Temporal Pulse Rate 70 Respiratory Rate 16 Respiratory Effort Normal Non-Labored Respiratory Pattern Normal Blood Pressure 122/79 H Blood Pressure Mean 93 Blood Pressure Source Monitor Blood Pressure Position Semi-Fowlers Blood Pressure Location Right Arm Baseline BP 122/79 Pulse Ox 100 Oxygen Delivery Method Room Air Weight Weight: 165 lb Body Mass Index (BMI) 23.6 Physical Exam Narrative Back incision scar. Neuro-intact, except for painful hip flexion and knee ext. Lab / Micro Data Labs: Laboratory Results - last 24 hr 01/12/24 10:54: PT 13.4, INR 1.0, APTT 30.1 Assessment & Plan Assessment/Plan (1) Discitis of lumbar region: PLAN: Plan I have reviewed the CT and MRI of lumbar spine done recently. These show postsurgical changes of L4-5 laminectomy. I also reviewed the MRI from prior to the July surgery which showed an L4-5 left paracentral disc herniation. The new CT and MRI show evidence of L4-5 endplate irregularity suggestive of discitis. No vacuum phenomenon noticed at L4-5 but vacuum phenomenon noticed at L3-4. Significant superior L5 endplate erosion noticed. Patient has significant foraminal height loss bilaterally. I discussed with Dr. Godoy the imaging findings. I discussed the procedure in detail with patient and family member. Typical approach to the disc would be through the foramen but the patient has significant foraminal height loss and foraminal stenosis which may increase the chances of exiting nerve root injury. One of the possible approaches may be through the L5 pedicle directed upwards going to the L4-5 disc space, with the downside of a track through bone potentially causing spread of organism to the bone and osteomyelitis. Patient however already has an evidence of osteomyelitis involving the superior L5 endplate. The risks of biopsy may include but are not limited to persistent infection, bleeding, hematoma formation, need for further surgery, injury to nerves and vessels, spread of infection to surrounding structures, bacteremia, septicemia, CSF leak, headache, noninfectious pathology, nerve root injury, nerve and cauda equina compression from hematoma or infectious material, vasovagal shock, persistent pain, need for surgical intervention, DVT, pulmonary embolism, cardiopulmonary event. Patient understands and agrees to proceed. Consent was signed. Charges/Coding Visit Charges Inpatient E&M: 73327 Init Hosp L3
[2024-01-12] MEDS: Midazolam 2 MG/2 ML Syringe IV ×4 (12:33→13:00)
[2024-01-12] MEDS: fentaNYL 100 MCG/2 ML Ampul IV ×2 (12:35→13:01)
[2024-01-12] MEDS: Lidocaine 2% (20 ml mdv) 20 ML Vial INFILT (12:52)
--- NOTE | 2024-01-12 16:12 | PRO.PCM_ITS ---
Procedure Report Date of Procedure: 01/12/24 Preoperative diagnosis: L4-5 discitis osteomyelitis Postoperative diagnosis: Same Surgeon: Dr. Bjorn Bradshaw Ophthalmic Medical Assistant: Dr. Jaspreet Armstrong Name of procedure: CT-guided transpedicular biopsy and aspiration of L4-5 disc space -Biopsy and aspiration of L4-5 disc space, CPT code 60140 -CT-guided biopsy, CPT code 39329 Anesthesia: Conscious sedation with 4 mg Versed and 100 mcg fentanyl, monitored by IR nursing Complications: None Findings: Bloody aspirate sent for cultures, core biopsies sent for pathology. Indications for procedure: Patient underwent L5 revision decompression with discectomy in July. He continues to have persistent low back pain which was evaluated with an MRI and CT and was found to have L4-5 discitis with endplate erosions and history of osteomyelitis. No obvious extraspinal abscesses or collections. Patient was started on empiric antibiotics, and a CT-guided biopsy was performed back in October which did not reveal any organism. He has now finished his antibiotic course but continues to have significant symptoms. Infectious disease recommended biopsy for directed antibiotic treatment. All risk benefits and alternatives were discussed with the patient prior to the procedure. The risks include but are not limited to persistent infection, b leeding, hematoma formation, need for further surgery, injury to nerves and vessels, spread of infection to surrounding structures, bacteremia, septicemia, CSF leak, headache, noninfectious pathology, nerve root injury, nerve and cauda equina compression from hematoma or infectious material, vasovagal shock, persistent pain, need for surgical intervention, DVT, pulmonary embolism, cardiopulmonary event. Patient understands and agrees to proceed. Consent was signed. Description of procedure: Patient was assisted into a prone position on the CT scanner. Adequate cushioning of all bony prominences was performed. Timeout was performed. Conscious sedation with 2 mg Versed and 50 mcg of fentanyl was performed. This was repeated once due to significant pain during the procedure. Patient was monitored throughout the procedure by IR nursing. CT scan was performed with skin marking grid to identify entry point for the biopsy needle. A trajectory going through the right L5 pedicle directed superiorly into the L4- 5 disc space was felt to be ideal. Due to significant foraminal stenosis, transforaminal route was not utilized. 2% lidocaine was injected underneath the skin for local anesthesia. Longer needle using a spinal needle was used to inject additional local anesthetic along the track of the needle. Scalpel was used to make a small incision of 3 mm on the skin. Jamshidi needle was introduced in the appropriate trajectory and was docked onto a bony surface likely transverse process. This was confirmed with a CT scan. The needle was then repositioned to be in the direction towards the right L5 pedicle oblique enough to enter L4-5 disc space and the scan confirmed this. With the help of a mallet the Jamshidi needle was entered into bone and the direction slightly ce phalad to point towards L4-5 disc space. This was again confirmed with CT scan to be in appropriate position in the L4-5 disc space. 50 cc syringe was used to aspirate. Bloody aspirate was obtained with possible minimal purulence. Core biopsies were performed and sent for pathology. Once adequate specimen for pathology as well as microbiology was obtained, the needle was removed and pressure was applied for hemostasis. Dressing was applied with OpSite. Patient tolerated the procedure well and was then transferred onto the hospital bed. Procedures Musculoskeletal [id number]: Other Procedure See Report
== END | disposition home or self-care (01) ==
LOC: CT 10:45
PROVIDERS: Nurse Practitioner Acute Care; PCP Internal Medicine; Referring Provider Internal Medicine; Visit Provider Internal Medicine
DX: Z01.818 Encounter for other preprocedural examination (principal); M86.9 Osteomyelitis, unspecified; M54.9 Dorsalgia, unspecified; Z87.39 Personal history of other diseases of the musculoskeletal system and connective tissue; R50.9 Fever, unspecified
CPT/HCPCS: 20225; 36415; 77012; 85610; 85730; 87015; 87070; 87075; 87102; 87116; 87205; 87206; 88304; 88307; 88311; 99156; 99157; J7050; A4216

== ENCOUNTER 2024-01-19 08:28 | Inpatient (IN) | payer MEDICARE, SELFPAY ==
[2024-01-17 10:51] LABS: Absolute Lymphocyte Count 0.97 X10^3/uL (0.83-4.51); Absolute Neutrophil Count 2.6 X10^3/uL (2.0-7.7); Basophil# 0.03 X10^3/uL; Basophil% 0.7 % (0-1); Eosinophil# 0.12 X10^3/uL; Hemoglobin 10.2 g/dL (13.0-16.5); Lymphocyte # 0.97 X10^3/ul (0.83-4.51); Lymphocyte % 24.1 % (19-41); Mean Corp Hgb Conc 31.9 g/dL (32-36); Mean Corpuscular Hgb 28.9 pg (27.0-32.0); Mean Corpuscular Volume 90.7 fL (80-94); Mean Platelet Vol. 8.1 fl (6.2-12.0); Monocyte# 0.35 X10^3/uL; Monocyte% 8.7 % (0-10); NRBC Flagged by Analyzer 0 % (0-5); Neutrophil # 2.56 X10^3/uL (2.7-7.7); Neutrophil % 63.5 % (47-70); Platelet Count 329 K/mm3 (150-450); RBC Distribution Width SD 42.2 fl (35.1-43.9); Red Blood Count 3.53 M/mm3 (4.6-6.2)
[2024-01-17 11:17] LABS: Anion Gap 6 (5-15); BUN 17 mg/dL (7-18); BUN/Creat Ratio 14.2 RATIO (10-20); Calcium,Total 9.6 mg/dL (8.5-10.1); Chloride 103 mmol/L (98-107); EST Glomerular Filtration Rate 64 mL/min (>60); Est Glom Filt Rate - Afr Amer 77 mL/min (>60); Glucose 127 mg/dL (74-106); Potassium 3.8 mmol/L (3.5-5.1); Sodium Level 138 mmol/L (136-145)
[2024-01-17 11:23] LABS: Magnesium 1.9 mg/dL (1.6-2.6)
[2024-01-17 12:07] LABS: HIV - WCH Non-Reactive (Nonreactive); Hepatitis B Surface Antibody Non-Reactive; Hepatitis C Antibody Non-Reactive (Nonreactive)
[2024-01-18 05:07] LABS: Hepatitis A AB, Total Negative (Negative)
[2024-01-18 09:19] LABS: Erythrocyte Sedimentation Rate 21 mm/hr (0-20)
[2024-01-19] VITALS (13 sets, daily range): BP systolic 106–159; BP diastolic 65–97; PULSE 60–104; RESP 14–20; TEMP 35.9–36.7; O2SAT 95–100; BMI 24.6
--- NOTE | 2024-01-19 08:50 | PCM.PRE.AN2 ---
ASA Classification* ASA Classification ASA Classification: 2 Assessment & Plan Anesthesia* History Source History Obtained from:: Patient and Chart Anesthesia Assessment Anesthesia Assessment: Discussed sedation and/or anesthesia options, risks, benefits, and alternatives with patient/parents/legal guardian. Questions invited. The patient/parents/legal guardian/POA seems to understand and agrees to proceed with anesthesia plan. Reviewed the physical assessment, medical history, allergy history and patient home medications list prior to surgery/procedure/anesthetic and documented any changes. Performed airway and anesthesia risk assessments. Procedural Plan (POC = Plan of care) Procedural Plan:: Proceed w/ POC Anesthesia Type Anesthesia Type: General Pre-Assessment Diagnosis/Proposed Procedure Planned Operative Procedure(s): Excision sacral pressure sore with partial ostectomy for osteomyelitis Anesthesia History Anesthesia History - insurance risk analyst: Anesthesia History - insurance risk analyst Hx Hospitalization Yes 01/16/24 15:42 Any Problems With Anesthesia No 01/16/24 15:42 Cholinesterase deficiency No 01/16/24 15:42 You/Your Family Experience No 01/16/24 15:42 fever (hyperthermia) with Relationship Recent Exposure to Contagious No 09/25/23 15:26 Disease Does patient have nerve No 01/16/24 15:42 stimulator Patient instructed to have device shut off --Does patient have Pacemaker or ICD? When Was Last Pacemaker Check QUESTION #4 FULL TEXT: You/Your Family Experience fever (hyperthermia) with Anesthesia Last Oral Intake Last Oral intake: Last Oral Intake NPO since Meds taken in AM with sips of water? Meds patient instructed to take am of surgery PONV PONV - insurance risk analyst: PONV - insurance risk analyst Female No 01/16/24 15:42 HX of Motion Sickness No 01/16/24 15:42 HX of N/V After Surgery No 01/16/24 15:42 Non-Smoker Yes 01/16/24 15:42 Duration of Surgery greater Yes 01/16/24 15:42 than 60 minutes Number of Risk Factors 2 01/16/24 15:42 PONV Score Moderate Risk 01/16/24 15:42 Height & Weight Height & Weight: Anesthesia: Height & Weight Height 1.78 m 01/12/24 11:30 Respiratory Assessment Respiratory Assessment - insurance risk analyst: Respiratory Tract Infection Hx - insurance risk analyst Hx Respiratory Tract Infection No 01/16/24 15:42 STOP Sleep Apnea STOP Sleep Apnea - insurance risk analyst: STOP Sleep Apnea - insurance risk analyst Hx Hypertension No 01/16/24 15:42 Hx Sleep Apnea No 01/16/24 15:42 CPAP No 01/16/24 15:42 BIPAP No 01/16/24 15:42 Do you snore loudly (louder No 01/16/24 15:42 than talking or can be heard Do you often feel tired/ No 01/16/24 15:42 fatigued/ sleepy during daytime? Has anyone observed you stop No 01/16/24 15:42 breathing during sleep? STOP Results Negative 01/16/24 15:42 QUESTION #5 FULL TEXT : Do you snore loudly (louder than talking or can be heard through closed doors)? Tobacco Use History Tobacco Use History - insurance risk analyst: Tobacco Use History - insurance risk analyst Tobacco Use Chew 10/26/23 17:06 Smoking Status Former smoker 01/16/24 15:42 Hx Tobacco Use Yes 01/16/24 15:42 Years Smoking Packs Smoked per Day Smoking Cessation Date was No - quit smoking greater 01/16/24 15:42 within the last 15 years than 15 years ago Hx Smoking Cessation Date Hx Smoking Cessation No 01/16/24 15:42 Counseling Hematologic Medial History Hematologic Hx - insurance risk analyst: Hematologic Medical Hx - traffic controller cable Hx of Blood Transfusion No 01/16/24 15:42 Hx of Transfusion in last 3 No 01/16/24 15:42 Months Date of Last Transfusion (if within last 3 months) Ever experience any problems No 01/16/24 15:42 with transfusion(s)? Specify any problems Hx of Preganancy in last 3 N/A 01/16/24 15:42 Months Nurse Filling Out Transfusion VCHRISTIN 01/16/24 15:42 & Questions: Date: 01/16/24 01/16/24 15:42 Time: 15:44 01/16/24 15:42 Patient unable to answer at this time (ie. confused, unrespo /Reproduction History /Reproductive History - insurance risk analyst: /Reproductive Hx- insurance risk analyst Hx Now No 01/16/24 15:42 Gestational Age (in weeks): EDC: Hx Hx Para Hx Section SAB No 01/16/24 15:42 Active Medications Active Medications: Current Medications Generic Name Dose Route Start Last Admin Trade Name Freq PRN Reason Stop Dose Admin Acetaminophen 1,000 mg 01/19/24 10:30 Acetaminophen 500 Mg Tablet PO 01/19/24 10:31 X1 ONE Cefazolin Sodium 2 gm/ Sodium 110 mls @ 150 mls/hr 01/19/24 10:30 Chloride IV 01/19/24 11:13 PREOP ONE Magnesium Sulfate 2 gm/ 104 mls @ 208 mls/hr 01/19/24 10:30 Dextrose IV 01/19/24 10:59 X1 ONE Lactated Ringer's 1,000 mls @ 15 mls/hr 01/19/24 08:45 IV .Q48H AMADO Insulin Human Lispro 1 - 6 unit 01/19/24 10:30 Insulin Lispro 100 Unit/Ml Insuln.Pen SC Q4H PRN PRN BG>/= 180, SEE PROTOCOL Protocol Anesthesia Focused Assessment* Temperature: 1 F Pulse Rate: 1 Blood Pressure: 1/1 Respiratory Rate: 1 Pulse Ox: 1 Oxygen Delivery Method: Room Air Airway Assessment Mouth opens (cm): 3` Mallampati Score: II Teeth Condition: Intact, Chipped/Broken and Dentures Neck Range of motion (ROM): Full ROM Pertinent Findings EKG Pertinent Findings:: test ekg Stress Test Pertinent Findings:: test stress ECHO Pertinent Findings:: test echo Focused Labs Anesthesia Preop lab: CBC WBC 4.0 K/mm3 (4.4-11.0) L 01/17/24 09:59 RBC 3.53 M/mm3 (4.6-6.2) L 01/17/24 09:59 Hgb 10.2 g/dL (13.0-16.5) L 01/17/24 09:59 Hct 32.0 % (40-54) L 01/17/24 09:59 Plt Count 329 K/mm3 (150-450) 01/17/24 09:59 CHEMISTRY Potassium 3.8 mmol/L (3.5-5.1) 01/17/24 09:59 Sodium 138 mmol/L (136-145) 01/17/24 09:59 Magnesium 1.9 mg/dL (1.6-2.6) 01/17/24 09:59 Phosphorus 3.2 mg/dL (2.5-4.9) 01/02/24 06:01 BUN 17 mg/dL (7-18) 01/17/24 09:59 Creatinine 1.20 mg/dL (0.70-1.30) 01/17/24 09:59 Glucose 127 mg/dL (74-106) H 01/17/24 09:59 TSH 2.15 uIU/mL (0.358-3.74) 01/02/24 06:01 COAG PT 13.4 SECONDS (11.7-14.9) 01/12/24 10:54 Review of Systems (Anesthesia) ROS Narrative System reviewed and no additional complaints, except as documented. [facility] Medical History (Updated 01/16/24 @ 15:42 by Crista Hadley) Bilirubinuria Contact with or exposure to other viral diseases Lumbosacral radiculopathy at L5 History of steroid therapy Smokeless tobacco use Tension headache Agent orange exposure Bilateral primary osteoarthritis of knee Wears hearing aid Cancer Alcohol use Diabetes Ambulates with cane Arthritis Prostate disease High cholesterol (~08/21/23) Restless legs Back pain Injury of head and neck Syncope History of IBS Shortness of breath on exertion History of pain when walking History of echocardiogram History of stress test Cardiology follow-up encounter Tear of medial meniscus of right knee Fibromyalgia BPH w urinary obs/LUTS Left knee DJD Right knee DJD Fusion of spine, cervical region Chondromalacia, right knee Chondromalacia, left knee Chondromalacia of both patellae COVID-19 virus detected (11/19/20) Nonrheumatic aortic (valve) stenosis with insufficiency Opioid dependence Obesity Asthma Hyperlipemia Essential (primary) hypertension Atherosclerotic heart disease of [place] coronary artery without angina pectoris Type 2 diabetes mellitus Spondylosis of lumbosacral region without myelopathy or radiculopathy Spinal stenosis of lumbosacral region Radiculopathy of lumbosacral region Degeneration of intervertebral disc of lumbosacral region Arthropathy of cervical facet joint Degeneration of cervical disc without myelopathy Cervical spondylosis Home Medications ?Medication ?Instructions ?Recorded ?Last Taken ?Type aspirin 81 mg tablet,delayed 81 mg PO DAILY HEART HEALTH 12/23/15 11/01/23 History release multivitamin 1 tab PO DAILY supplement 07/09/19 11/01/23 History albuterol sulfate 90 mcg/actuation 1 - 2 puff inhalation Q4H PRN PRN 04/21/22 Unknown Rx aerosol inhaler Wheezing #8.5 grams handicap placard #1 ea 04/21/22 Unknown Rx blood sugar diagnostic (FreeStyle #100 ea 09/15/22 Unknown Rx Lite Strips) blood-glucose meter (FreeStyle #1 ea 09/15/22 Unknown Rx Lite Meter kit) fluticasone propionate 50 1 - 2 spray intranasal BID PRN 04/27/23 10/31/23 Rx mcg/actuation nasal allergies, congestion #16 grams spray,suspension atorvastatin 40 mg tablet 40 mg PO QHS CHOLESTEROL #90 tabs 08/21/23 11/01/23 Rx trazodone 50 mg tablet 50 - 100 mg (1 - 2 x 50 mg) PO QHS 08/21/23 10/31/23 Rx sleep #90 tabs metformin 500 mg tablet 500 mg PO BID DIABETIC 1 month #60 12/12/23 Unknown Rx tabs linaclotide 72 mcg capsule 72 mcg PO DAILY irritable colon 01/02/24 Unknown History (Linzess) acetaminophen 500 mg tablet 1,000 mg (2 x 500 mg) PO Q8 PAIN 01/03/24 Unknown Rx #0 tabs duloxetine 30 mg capsule,delayed 30 mg PO DAILY ANXIETY #30 caps 01/03/24 Unknown Rx release gabapentin 400 mg capsule 400 mg PO TID PAIN #90 caps 01/03/24 Unknown Rx pantoprazole 40 mg tablet,delayed 40 mg PO DAILY GERD #30 tabs 01/03/24 Unknown Rx release baclofen 5 mg tablet 5 mg PO BID PAIN 01/16/24 Unknown History oxycodone-acetaminophen 7.5 mg-325 1 tab PO BID PAIN 01/16/24 Unknown History mg tablet Allergy/AdvReac Type Severity Reaction Status Date / Time adhesive tape Allergy Rash Verified 01/16/24 15:28 sertraline (From Zoloft) AdvReac Unknown Verified 01/16/24 15:28 Family History Brother Heart disease Myocardial infarction 60's CAD (coronary artery disease) Father Myocardial infarction 65 CAD (coronary artery disease) Mother HLD (hyperlipidemia) when son was 16 following MVA, healthy aside HLD. Surgical History (Updated 01/16/24 @ 15:42 by Crista Hadley) Hx of laminectomy S/P laminectomy Status post discectomy for herniated nucleus pulposus History of lateral meniscus repair of right knee (~2021) Hx laparoscopic cholecystectomy (~11/2022) Hx of bilateral cataract extraction H/O cervical spine surgery (08/2020) History of herniorrhaphy History of carpal tunnel release History of back surgery History of left heart catheterization (09/09/11) H/O coronary artery bypass surgery (09/14/11) Social History household members: spouse Smoking Status: Former smoker Smokeless tobacco user: chewing tobacco alcohol intake: current alcohol intake frequency: a few times a month substance use type: does not use caffeine: Yes Type: coffee Number of servings: 2
[2024-01-19] MEDS: Lactated Ringers 1,000 ML 15 ML IV (09:34)
[2024-01-19] MEDS: Magnesium 2 GM for ERAS IV (09:35)
[2024-01-19 09:48] LABS: Bedside Glucose 84 mg/dL (74-106)
[2024-01-19] MEDS: Acetaminophen 500 MG Tablet PO (10:02)
--- NOTE | 2024-01-19 10:46 | CONS.ORTHO ---
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 He is a patient of Dr. Godoy. Dr. Godoy requested me to evaluate for possible surgical debridement of his discitis osteomyelitis. I have known the patient through to encounters involving CT-guided biopsies done in October and in late December. Patient underwent laminectomy discectomy in July 2023 after which he developed discitis which was treated with 6 weeks of IV antibiotics. After his antibiotics ended, he continued to have significant fever and persistent pain. He has undergone 2 CT-guided biopsies the first 1 in October did not reveal any organism, and the second 1 in December revealed organisms on Gram stain but not on culture and sensitivity. He is off of antibiotics and Dr. Wilkinson in infectious disease recommends obtaining new culture specimens if possible. I spoke to the patient and in detail. He has been able to ambulate within the house with the help of a cane but has severe pain at rest and worsens with mobility. His pain is predominantly in the axial low back area. He denies any radicular pain numbness or weakness. He has had some fevers last week but not recently but mentions of a lot of chills during the day and night for which she requires temperatures at points much higher. [facility] Medical History (Updated 01/19/24 @ 10:[address] Bjorn Bradshaw MD) Bilirubinuria Contact with or exposure to other viral diseases Lumbosacral radiculopathy at L5 History of steroid therapy Smokeless tobacco use Tension headache Agent orange exposure Bilateral primary osteoarthritis of knee Wears hearing aid Cancer Alcohol use Diabetes Ambulates with cane Arthritis Prostate disease High cholesterol (~08/21/23) Restless legs Back pain Injury of head and neck Syncope History of IBS Shortness of breath on exertion History of pain when walking History of echocardiogram History of stress test Cardiology follow-up encounter Tear of medial meniscus of right knee Fibromyalgia BPH w urinary obs/LUTS Left knee DJD Right knee DJD Fusion of spine, cervical region Chondromalacia, right knee Chondromalacia, left knee Chondromalacia of both patellae COVID-19 virus detected (11/19/20) Nonrheumatic aortic (valve) stenosis with insufficiency Opioid dependence Obesity Asthma Hyperlipemia Essential (primary) hypertension Atherosclerotic heart disease of [place] coronary artery without angina pectoris Type 2 diabetes mellitus Spondylosis of lumbosacral region without myelopathy or radiculopathy Spinal stenosis of lumbosacral region Radiculopathy of lumbosacral region Degeneration of intervertebral disc of lumbosacral region Arthropathy of cervical facet joint Degeneration of cervical disc without myelopathy Cervical spondylosis Home Medications ?Medication ?Instructions ?Recorded ?Last Taken ?Type aspirin 81 mg tablet,delayed 81 mg PO DAILY HEART HEALTH 12/23/15 12/28/23 History release multivitamin 1 tab PO DAILY supplement 07/09/19 01/18/24 History albuterol sulfate 90 mcg/actuation 1 - 2 puff inhalation Q4H PRN PRN 04/21/22 Unknown Rx aerosol inhaler Wheezing #8.5 grams handicap placard #1 ea 04/21/22 Unknown Rx blood sugar diagnostic (FreeStyle #100 ea 09/15/22 Unknown Rx Lite Strips) blood-glucose meter (FreeStyle #1 ea 09/15/22 Unknown Rx Lite Meter kit) fluticasone propionate 50 1 - 2 spray intranasal BID PRN 04/27/23 01/18/24 Rx mcg/actuation nasal allergies, congestion #16 grams spray,suspension atorvastatin 40 mg tablet 40 mg PO QHS CHOLESTEROL #90 tabs 08/21/23 01/18/24 Rx trazodone 50 mg tablet 50 - 100 mg (1 - 2 x 50 mg) PO QHS 08/21/23 01/18/24 Rx sleep #90 tabs metformin 500 mg tablet 500 mg PO BID DIABETIC 1 month #60 12/12/23 01/18/24 Rx tabs linaclotide 72 mcg capsule 72 mcg PO DAILY irritable colon 01/02/24 01/18/24 History (Linzess) acetaminophen 500 mg tablet 1,000 mg (2 x 500 mg) PO Q8 PAIN 01/03/24 Unknown Rx #0 tabs duloxetine 30 mg capsule,delayed 30 mg PO DAILY ANXIETY #30 caps 01/03/24 01/18/24 Rx release gabapentin 400 mg capsule 400 mg PO TID PAIN #90 caps 01/03/24 01/19/24 Rx pantoprazole 40 mg tablet,delayed 40 mg PO DAILY GERD #30 tabs 01/03/24 01/19/24 Rx release baclofen 5 mg tablet 5 mg PO BID PAIN 01/16/24 01/18/24 History oxycodone-acetaminophen 7.5 mg-325 1 tab PO BID PAIN 01/16/24 01/19/24 History mg tablet Allergy/AdvReac Type Severity Reaction Status Date / Time adhesive tape Allergy Rash Verified 01/16/24 15:28 sertraline (From Zoloft) AdvReac Unknown Verified 01/16/24 15:28 Family History Brother Heart disease Myocardial infarction 60's CAD (coronary artery disease) Father Myocardial infarction 65 CAD (coronary artery disease) Mother HLD (hyperlipidemia) when son was 16 following MVA, healthy aside HLD. Surgical History (Updated 01/16/24 @ 15:42 by Crista Hadley) Hx of laminectomy S/P laminectomy Status post discectomy for herniated nucleus pulposus History of lateral meniscus repair of right knee (~2021) Hx laparoscopic cholecystectomy (~11/2022) Hx of bilateral cataract extraction H/O cervical spine surgery (08/2020) History of herniorrhaphy History of carpal tunnel release History of back surgery History of left heart catheterization (09/09/11) H/O coronary artery bypass surgery (09/14/11) Social History household members: spouse Smoking Status: Former smoker Smokeless tobacco user: chewing tobacco alcohol intake: current alcohol intake frequency: a few times a month substance use type: does not use caffeine: Yes Type: coffee Number of servings: 2 Vital Signs Vital Signs Vital Signs: 01/19/24 09:39 01/19/24 09:39 Temperature 97.6 F L Temperature Source Temporal Pulse Rate 60 Respiratory Rate 18 Respiratory Pattern Normal Blood Pressure 114/65 Blood Pressure Mean 81 Blood Pressure Source Monitor Blood Pressure Position Semi-Fowlers Blood Pressure Location Right Arm Pulse Ox 100 Oxygen Delivery Method Room Air Weight Weight: 171 lb 11.841 oz Body Mass Index (BMI) 24.6 Physical Exam Narrative Exam to the lower back shows prior midline incision well-healed there is midline paraspinal tenderness in lower lumbar spine. Neurologic motion of lower extremities shows grade 4 power in both lower extremities likely related to pain. Especially bilateral quadriceps are grade 4 to 4 minus. Const alert and oriented x3 Lab / Micro Data 01/17/24 09:59 01/17/24 09:59 Labs: Laboratory Results - last 24 hr 01/19/24 09:30: POC Glucose 84 Micro: Microbiology 01/17/24 09:59 Swab (Method) Nasal Screen MRSA/MSSA - Final Assessment & Plan Assessment/Plan (1) Discitis of lumbar region: (2) Osteomyelitis of lumbar spine: (3) Lumbar scoliosis: QUALIFIERS: Scoliosis type: other secondary scoliosis Qualified Code(s): M41.56 - Other secondary scoliosis, lumbar region PLAN: Plan I reviewed patient's previous x-rays CT and MRI done multiple times recently. He has a lumbar scoliosis with concavity to the right. L4-5 shows postsurgical changes of laminectomy with bilateral foraminal stenosis. L4-5 disc shows disc height loss with severe endplate erosions consistent with discitis and osteomyelitis. Infectious possible phlegmon noted in both the psoas medial aspect. No epidural abscess noticed. I explained to him the imaging findings in detail. 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 No organism has been identified on cultures and sensitivity as yet. Because of failure of antibiotics, infectious disease specialist Dr. Wilkinson and Dr. 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 I explained to the patient that this might involve partial corpectomies of L4-L5 depending on the extent of infection. Patient will undergo L4-5 anterolateral interbody fusion with percutaneous posterior pedicle screw instrumentation. Patient may require extension of fusion to L3-4 or L5-S1 depending on the extent of corpectomies needed. All risk benefits and alternatives were discussed in detail. The risks include but are not limited to persistent or new infection, bleeding, injury to nerves and vessels, vascular injury, need for blood transfusion, visceral injury, ileus, hardware failure, need for further surgeries, pseudoarthrosis, DVT, pulm embolism, pneumonia, atelectasis, bacteremia, septicemia, multiple organ failure, cardiopulmonary event, . Patient understands and agrees to proceed with surgery. Consent was signed. Patient is a tobacco chewer and I explained to the patient the effects of nicotine and tobacco to the healing process of a fusion and advised him to cut down and quit if possible. Patient was in agreement. Charges/Coding Visit Charges Inpatient E&M: 36073 Init Hosp L3
--- NOTE | 2024-01-19 11:15 | PCM.PRE.AN2 ---
ASA Classification* ASA Classification ASA Classification: 2 Assessment & Plan Anesthesia* History Source History Obtained from:: Patient and Chart Anesthesia Assessment Anesthesia Assessment: Discussed sedation and/or anesthesia options, risks, benefits, and alternatives with patient/parents/legal guardian. Questions invited. The patient/parents/legal guardian/POA seems to understand and agrees to proceed with anesthesia plan. Reviewed the physical assessment, medical history, allergy history and patient home medications list prior to surgery/procedure/anesthetic and documented any changes. Performed airway and anesthesia risk assessments. 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 When Was Last Pacemaker Check QUESTION #4 FULL TEXT: You/Your Family Experience fever (hyperthermia) with Anesthesia Last Oral Intake Last Oral intake: Last Oral Intake NPO since 06:30 01/19/24 09:39 Meds taken in AM with sips of No 01/19/24 09:39 water? 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 Female No 01/19/24 09:58 HX of Motion Sickness No 01/19/24 09:58 HX of N/V After Surgery No 01/19/24 09:58 Non-Smoker Yes 01/19/24 09:58 Duration of Surgery greater Yes 01/19/24 09:58 than 60 minutes Number of Risk Factors 2 01/19/24 09:58 PONV Score Moderate Risk 01/19/24 09:58 Height & Weight Height & Weight: Anesthesia: Height & Weight Height 1.78 m 01/19/24 09:39 Weight: 77.9 kg 01/19/24 09:39 Body Mass Index (BMI) 24.6 01/19/24 09:39 Respiratory Assessment Respiratory Assessment - 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 Has anyone observed you stop No 01/19/24 09:58 breathing during sleep? STOP Results Negative 01/19/24 09:58 QUESTION #5 FULL TEXT : Do you snore loudly (louder than talking or can be heard through closed doors)? 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 Specify any problems Hx of Preganancy in last 3 N/A 01/19/24 09:58 Months Nurse Filling Out Transfusion SULEIMAN 01/19/24 09:58 & Questions: Date: 01/19/24 01/19/24 09:58 Time: 09:58 01/19/24 09:58 Patient unable to answer at this time (ie. 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: /Reproductive Hx- potato chip processing supervisor Hx Now No 01/19/24 09:58 Gestational Age (in weeks): EDC: Hx Hx Para Hx Section SAB No 01/19/24 09:58 Active Medications Active Medications: Current Medications Generic Name Dose Route Start Last Admin Trade Name Freq PRN Reason Stop Dose Admin Lactated Ringer's 1,000 mls @ 15 mls/hr 01/19/24 08:45 01/19/24 09:34 IV 15 mls/hr .Q48H AMADO Administration Insulin Human Lispro 1 - 6 unit 01/19/24 10:30 Insulin Lispro 100 Unit/Ml Insuln.Pen SC Q4H PRN PRN BG>/= 180, SEE PROTOCOL Protocol Anesthesia Focused Assessment* Temperature: 97.6 F Pulse Rate: 60 Blood Pressure: 114/65 Respiratory Rate: 18 Pulse Ox: 100 Oxygen Delivery Method: Room Air Airway Assessment Mouth opens (cm): >3 Mallampati Score: I Teeth Condition: Caps/Crowns (tight), Chipped/Broken and Missing Neck Range of motion (ROM): Full ROM Pertinent Findings EKG Pertinent Findings:: NSR Stress Test Pertinent Findings:: January 18, 2023 stress test was negative ejection fraction was 59% ECHO Pertinent Findings:: October 23, 2023 ejection fraction 60% mild aortic stenosis noted no shunt Consults Pertinent Findings:: December 16, 2022 MacConnell history of CABG there is no angina. Recent echo was done on October 22 please note above Focused Labs Anesthesia Preop lab: CBC WBC 4.0 K/mm3 (4.4-11.0) L 01/17/24 09:59 RBC 3.53 M/mm3 (4.6-6.2) L 01/17/24 09:59 Hgb 10.2 g/dL (13.0-16.5) L 01/17/24 09:59 Hct 32.0 % (40-54) L 01/17/24 09:59 Plt Count 329 K/mm3 (150-450) 01/17/24 09:59 CHEMISTRY Potassium 3.8 mmol/L (3.5-5.1) 01/17/24 09:59 Sodium 138 mmol/L (136-145) 01/17/24 09:59 Magnesium 1.9 mg/dL (1.6-2.6) 01/17/24 09:59 Phosphorus 3.2 mg/dL (2.5-4.9) 01/02/24 06:01 BUN 17 mg/dL (7-18) 01/17/24 09:59 Creatinine 1.20 mg/dL (0.70-1.30) 01/17/24 09:59 Glucose 127 mg/dL (74-106) H 01/17/24 09:59 TSH 2.15 uIU/mL (0.358-3.74) 01/02/24 06:01 COAG PT 13.4 SECONDS (11.7-14.9) 01/12/24 10:54 Review of Systems (Anesthesia) ROS Narrative System reviewed and no additional complaints, except as documented. [facility] Medical History Bilirubinuria Contact with or exposure to other viral diseases Lumbosacral radiculopathy at L5 History of steroid therapy Smokeless tobacco use Tension headache Agent orange exposure Bilateral primary osteoarthritis of knee Wears hearing aid Cancer Alcohol use Diabetes Ambulates with cane Arthritis Prostate disease High cholesterol (~08/21/23) Restless legs Back pain Injury of head and neck Syncope History of IBS Shortness of breath on exertion History of pain when walking History of echocardiogram History of stress test Cardiology follow-up encounter Tear of medial meniscus of right knee Fibromyalgia BPH w urinary obs/LUTS Left knee DJD Right knee DJD Fusion of spine, cervical region Chondromalacia, right knee Chondromalacia, left knee Chondromalacia of both patellae COVID-19 virus detected (11/19/20) Nonrheumatic aortic (valve) stenosis with insufficiency Opioid dependence Obesity Asthma Hyperlipemia Essential (primary) hypertension Atherosclerotic heart disease of [place] coronary artery without angina pectoris Type 2 diabetes mellitus Spondylosis of lumbosacral region without myelopathy or radiculopathy Spinal stenosis of lumbosacral region Radiculopathy of lumbosacral region Degeneration of intervertebral disc of lumbosacral region Arthropathy of cervical facet joint Degeneration of cervical disc without myelopathy Cervical spondylosis Home Medications ?Medication ?Instructions ?Recorded ?Last Taken ?Type aspirin 81 mg tablet,delayed 81 mg PO DAILY HEART HEALTH 12/23/15 12/28/23 History release multivitamin 1 tab PO DAILY supplement 07/09/19 01/18/24 History albuterol sulfate 90 mcg/actuation 1 - 2 puff inhalation Q4H PRN PRN 04/21/22 Unknown Rx aerosol inhaler Wheezing #8.5 grams handicap placard #1 ea 04/21/22 Unknown Rx blood sugar diagnostic (FreeStyle #100 ea 09/15/22 Unknown Rx Lite Strips) blood-glucose meter (FreeStyle #1 ea 09/15/22 Unknown Rx Lite Meter kit) fluticasone propionate 50 1 - 2 spray intranasal BID PRN 04/27/23 01/18/24 Rx mcg/actuation nasal allergies, congestion #16 grams spray,suspension atorvastatin 40 mg tablet 40 mg PO QHS CHOLESTEROL #90 tabs 08/21/23 01/18/24 Rx trazodone 50 mg tablet 50 - 100 mg (1 - 2 x 50 mg) PO QHS 08/21/23 01/18/24 Rx sleep #90 tabs metformin 500 mg tablet 500 mg PO BID DIABETIC 1 month #60 12/12/23 01/18/24 Rx tabs linaclotide 72 mcg capsule 72 mcg PO DAILY irritable colon 01/02/24 01/18/24 History (Linzess) acetaminophen 500 mg tablet 1,000 mg (2 x 500 mg) PO Q8 PAIN 01/03/24 Unknown Rx #0 tabs duloxetine 30 mg capsule,delayed 30 mg PO DAILY ANXIETY #30 caps 01/03/24 01/18/24 Rx release gabapentin 400 mg capsule 400 mg PO TID PAIN #90 caps 01/03/24 01/19/24 Rx pantoprazole 40 mg tablet,delayed 40 mg PO DAILY GERD #30 tabs 01/03/24 01/19/24 Rx release baclofen 5 mg tablet 5 mg PO BID PAIN 01/16/24 01/18/24 History oxycodone-acetaminophen 7.5 mg-325 1 tab PO BID PAIN 01/16/24 01/19/24 History mg tablet Allergy/AdvReac Type Severity Reaction Status Date / Time adhesive tape Allergy Rash Verified 01/16/24 15:28 sertraline (From Zoloft) AdvReac Unknown Verified 01/16/24 15:28 Family History Brother Heart disease Myocardial infarction 60's CAD (coronary artery disease) Father Myocardial infarction 65 CAD (coronary artery disease) Mother HLD (hyperlipidemia) when son was 16 following MVA, healthy aside HLD. Surgical History Hx of laminectomy S/P laminectomy Status post discectomy for herniated nucleus pulposus History of lateral meniscus repair of right knee (~2021) Hx laparoscopic cholecystectomy (~11/2022) Hx of bilateral cataract extraction H/O cervical spine surgery (08/2020) History of herniorrhaphy History of carpal tunnel release History of back surgery History of left heart catheterization (09/09/11) H/O coronary artery bypass surgery (09/14/11) Social History household members: spouse Smoking Status: Former smoker Smokeless tobacco user: chewing tobacco alcohol intake: current alcohol intake frequency: a few times a month substance use type: does not use caffeine: Yes Type: coffee Number of servings: 2
--- NOTE | 2024-01-19 11:30 | RAD_ITS ---
STUDY: X-RAY - LUMBAR SPINE REASON FOR EXAM: Male, 68 years old. FUSION L4-5, POSS L3-4, DEBRIDEMENT OF L4-5 SPACE AND COREPECTOMY TECHNIQUE: 17 intraoperative C-arm view(s) of the lumbar spine were obtained. 56.1 seconds fluoroscopy time. COMPARISON: None FINDINGS: Numerous C-arm images show intervertebral disc surgery and posterior fixation at L4-L5. Correlate with procedure note. Electronically Signed: Toribio Giraldo MD at 16:07 EDT , RAD/Lumbar Spine 2 or 3 Views IMPRESSION: undefined
[2024-01-19] MEDS: Cefepime HCl 2 GM in 0.9% Normal Saline (100mL MB+) 100 ML IV ×2 (12:55→21:14)
[2024-01-19] MEDS: Vancomycin HCl 1,500 MG in 0.9% Normal Saline (500mL Bag) 500 ML 250 MG IV (13:25)
[2024-01-19 13:42] LABS: Hematocrit 25.5 % (40-54); Hemoglobin 8.3 g/dL (13.0-16.5)
--- NOTE | 2024-01-19 14:42 | OP.PCM_ITS ---
Report of Operation Date of Procedure: 01/19/24
--- NOTE | 2024-01-19 14:42 | PCM.OPRPT ---
Report of Operation Date of Procedure: 01/19/24
[2024-01-19] MEDS: Ropivacaine 0.5% 30 ML Vial (15:50)
--- NOTE | 2024-01-19 15:57 | PCM.OPRPT ---
Report of Operation Date of Procedure: 01/19/24 Description of Surgical Findings:: Preoperative diagnosis: L4-5 discitis, osteomyelitis, degenerative scoliosis, foraminal stenosis, prior laminectomy Postoperative diagnosis: Same Name of procedures L4-5 anterolateral debridement, irrigation, discectomy, partial corpectomy, oblique lumbar interbody fusion (OLIF), left sided approach, lateral decubitus: . L4-5 anterolateral debridement in the form of discectomy with partial corpectomy 48045 ? L4-5 anterolateral spinal fusion 08119 ? L4-5 insertion of cage 23203 ? Allograft cancellous chips with DBX Attending Surgeon: Dr. Bjorn Bradshaw Co-surgeon: Dr. Vin Neff Insurance Adviser surgeon: Dr. Ventura Godoy Estimated blood loss: 700 mL Anesthesia: General Complications: None Indications: Patient is a 68-year-old pleasant gentleman who underwent laminectomy discectomy in July [address] Godoy. He later developed L4-5 discitis with osteomyelitis. This was treated with IV antibiotics for 6 weeks. He however continued to have fevers and worsening infection seen on imaging.. CT & MRI revealed L4-5 discitis with endplate destruction and collapse with phlegmon in medial psoas bilaterally. As the patient failed an IV course of empiric antibiotics and pathogen was not able to be isolated in the past, infectious disease specialist as well as patient agreed that the next step would be to Undergo anterolateral debridement with instrumented anterior posterior fusion. All surgical options were discussed with the patient including anterior and posterior approaches. All risks and benefits associated with the procedure were explained to the patient. The risks include but are not limited to infection, bleeding, injury to nerves and vessels including major vessels like IVC and aorta, persistent paresthesia, persistent pain, dural tear, need for further procedures, adjacent segment degeneration, pseudoarthrosis, hardware failure, retrograde ejaculation, paralytic ileus, etc. Procedure: The patient was identified in the preoperative holding suite using Unique patient identifiers. Skin was marked, consent was reviewed, and all questions were answered. The patient was then brought back to the operative room. A surgical timeout was performed to make sure correct procedure was being done on the correct patient and all operative room staff were on the same page. General endotracheal anesthesia was then given to the patient. Gan catheter was inserted. The patient was then carefully positioned in right lateral decubitus position with the left side up on a regular OR table. Axillary roll was placed and all bony prominences were well- padded. Hip positioners were placed in the posterior buttocks and anterior sternal area. The surgical area was prepped and draped in usual fashion. Preoperative antibiotic was held until specimen retrieval. A final timeout was then again done just before starting the procedure. A 2 inch incision oblique was taken in the left lower quadrant of the abdomen 2 fingerbreadths away from the iliac crest and the lower ribs. Sharp dissection with Bovie was carried out up to the fascia covering the external oblique. The external oblique, internal oblique and transversus abdominis muscles were split along the muscle fibers and retroperitoneal space was entered. Sponge sticks were utilized to move the bowel and peritoneum [id number]-way and psoas muscle was exposed staying within the retroperitoneal plane. Test.tv retractor system was positioned and the retractor blade was applied onto the psoas. The interval between psoas and midline structures was developed and appropriate retractors were placed. Significant chronic inflammatory tissue as well as infected granulation tissue was noticed in the medial psoas and over the L4-5 disc space. Once adequate interval was cleared, a disc space was identified and a marker x-ray was taken. This identified the L4-5 disc level. The prepsoas interval was then traced inferiorly and superiorly to expose the upper to mid body of L4 and L5. Segmental vessels were preserved. Annulotomy was done with a long handled knife. Pituitary was used to remove infected disc material. Specimen in the form of swabs as well as tissue from the disc space was removed and sent for cultures and pathology. IV antibiotics were then started which were vancomycin and cefepime per ID recommendation. Curettes were used to debride the disc space. Kerrisons were used to resect a portion of the L4 inferior body as well as the L5 superior body to be able to gain access to the infected portions of the endplates. Curved curettes were utilized to remove the infected material from the L4 inferior and L5 superior body. Bleeding bone was observed. Adequate debridement of the soft tissue infected granulation tissue in the medial psoas muscle was also performed. Thorough irrigation with Irrisept was given and kept in the wound for 1 minute. Disc space spreaders were utilized to distract and increase the disc height. Smaller disc distractors were also used to bluntly perform a contralateral annulotomy. Near complete discectomy and partial corpectomy of lower L4 L4-L5 were performed. Trials of serially increasing sizes were used. A Depuy [place] cage of size of the 18 x 55 x 16 mm with 15 degrees lordosis was packed with corticocancellous allograft bone chips mixed with DBX putty. This was inserted into the debrided L4-5 anterior interspace. AP and lateral C-arm pictures were taken to confirm good position of the cage. Some bone chips were also packed around the cage especially in the void created in the anterior inferior aspect of the L4 body. Screw with washer was placed into the upper L5 body with a washer partially covering the cage. Hemostasis was confirmed. The retractor blades were removed. Closure was done in layers with a continuous strand of # 1 Vicryl in all muscle layers. 2-0 Vicryl was used for subcutaneous tissue and 4-0 for Monocryl for the skin. Steri-Strips were applied and 4 x 4 gauze and Tegaderm were applied. Surgeon: Bjorn Bradshaw Admit VTE Documentation VTE Mechan Device Prophylaxis: SCD's Procedures Musculoskeletal 20xxx-[id number]: Other Procedure See Report
--- NOTE | 2024-01-19 16:25 | PCM.POST.ANE ---
Anesthesia: Postop Eval I Current Vital Signs Temperature: 97 F Pulse Rate: 64 Blood Pressure: 117/68 Respiratory Rate: 16 Pulse Ox: 100 Oxygen Delivery Method: Nasal Cannula Oxygen Flow Rate (L/min): 2 (as part of ERAS protocol) Assessment Airway patent: Yes Spontaneous unlabored respirations: Yes Mental status: Awake nausea: No Vomiting: No Anesthesia Complication: No Fluid Hydration Crystalloid volume administer (ml): 2,400 Total IV fluid infused: 2,400 Progress Note Anesthesia document: Postop Eval 1 completed: Yes
--- NOTE | 2024-01-19 16:33 | PCM.OPRPT ---
Report of Operation Date of Procedure: 01/19/24 Description of Surgical Findings:: Preoperative diagnosis: L4-5 discitis, osteomyelitis, degenerative scoliosis, foraminal stenosis, prior laminectomy Postoperative diagnosis: Same Name of procedures: L4-5 posterior percutaneous pedicle screw instrumentation, prone: ? L4-5 posterior pedicle screw instrumentation 38206 Attending Surgeon: Dr. Bjorn Bradshaw Asst surgeon: Dr. Ventura Godoy Estimated blood loss: 700 mL (total for entire case) Anesthesia: General Complications: None Description of procedure: After the anterior procedure was complete, the patient was then turned supine. The patient was then transferred to [facility] in prone position. Back was prepped and draped in usual fashion. All anterior instruments and sterile trays were discarded and new x-rays and sterile table was prepared for the posterior part. C-arm AP view was then taken. C-arm was positioned in a way that L4 was centralized and superior endplate of was parallel to the beam. Spinous process was centered between the pedicles. Midline was marked with skin marker and lateral borders of the pedicles were also marked. Skin marker was also utilized to ben transversely across the middle of the pedicles at L4. 2 longitudinal paramedian incisions of 1 inch were placed. The fascia was incised vertically. Finger dissection was utilized to palpate the transverse process and facet joint. Viper Prime screws with towers were inserted and docked onto the transverse processes. This was then slowly moved medially to reach the superior articular process of L4. This was then confirmed on C-arm and then a mallet was utilized to drive the trocar into the pedicle going up to the medial wall of the pedicle on AP view. This was performed both sides. C-arm lateral view confirmed that the tip of the trocar was in the vertebral body, and the screw was advanced into the pedicle and vertebral body. This was repeated similarly at L5 bilaterally. Screw sizes were 7 x 55 mm at L4 and L5 bilaterally. 40 mm precontoured titanium 5.5 mm lordotic anjana on Both sides were then passed through the screw extensions and reduced down to the screws with the help of [email or web address]) instrumentation system on both sides. AP and lateral view of the C-arm showed good positioning of the screws and cages. Final tightening with the torque screwdriver was then completed. Facet fusion was initially planned, but due to the presence of laminectomy, this was not performed. Hemostasis was achieved. Closure was done in layers with 0 Vicryls for the fascia, 2-0 Vicryls for the subcutaneous tissue, and Monocryl for the skin. Dermabond was applied. Dressings were applied covered with Tegaderm. The patient was then turned supine onto a hospital bed. The patient was extubated and taken to PACU in stable condition. The patient tolerated the procedure well and no complications occurred. Depuy Jbph[facility] cage & Viper Prime minimally invasive pedicle screw instrumentation system was utilized in this case. No dural tear was identified intraoperatively. I was present for the entirety of the case and performed the surgery. Surgeon: Bjorn Bradshaw carpenter rough: Ventura Godoy Admit VTE Documentation VTE Mechan Device Prophylaxis: SCD's Procedures Musculoskeletal 20xxx-[id number]: Other Procedure See Report
--- NOTE | 2024-01-19 17:05 | PCM.POSTANE2 ---
Anesthesia Postop Eval I Sum Postop Eval Completion status Anesthesia document: Postop Eval 1 completed: Yes Anesthesia Postop Eval I Summary Anesthesia Postop Eval I Summary: Anesthesia Postop Eval I: Assessment Summary Airway patent Yes 01/19/24 16:34 [email or web address] Spontaneous unlabored Yes 01/19/24 16:34 [email or web address] respirations Mental status Awake 01/19/24 16:34 [email or web address] nausea No 01/19/24 16:34 [email or web address] Vomiting No 01/19/24 16:34 [email or web address] Anesthesia Postop Eval I: Fluid Summary Crystalloid volume administer 2,400 01/19/24 16:34 [email or web address] (ml) Colloids volume administered ( ml) Blood Product volume administered (ml) Total IV fluid infused 2,400 01/19/24 16:34 [email or web address] Anesthesia Postop Eval I: Summary Notes Anesthesia Complication No 01/19/24 16:34 [email or web address] Anesthesia Complication Comment: Post-operative progress note Anesthesia: Postop Eval II Evaluation Mental status: Asleep Pain Level: 4 (Resting comfortably after pain medications) nausea: No Vomiting: No Complications Anesthesia Complication: No
--- NOTE | 2024-01-19 18:35 | CON.PCM.HO_ITS ---
Assessment & Plan Assessment/Plan (1) Osteomyelitis of lumbar spine: PLAN: Plan #Discitis and scoliosis with osteomyelitis of L4-5 * s/p L4-5 posterior pedicle screw instrumentation * management as per primary service spine surgery * PO tylenol, PO oxycodone and IV morphine prn for pain; pain management as per primary service orthopedics * fall precautions * incentive spirometry. * #Anemia: hb is 8.3. May due to acute blood loss from surgery. Will monitor and transfuse if Hb <7 #Hyperlipidemia: on statin #TYpe 2 diabetes mellitus: on metformin. ISS. Accuchecks ACHS. #Depression: on duloxetine. DVT prophylaxis: as per primary service Thank you for the courtesy of the consult. The hospitalist service will continue to follow with you. HPI Consult Data Date of Consult: 01/19/24 HPI Narrative Reason for Consultation: medical management HPI Narrative: JARET FIGUEROA, is a 68 M with a PMH who was admitted to the orthopedic service with a complaint of low back pain due to L4-5 discitis due to osteomyelitis. He had laminectomy and discectomy on 07/2023 and the post op course was complicated by discitis and it was treated with IV antibiotics for 6 weeks. He continued to have fever and persistent pain. He had two CT guided biopsies subsequently which did not show any organism. He was not placed on any further antibiotics. ID was on board. He was admitted on 01/19/2024 for L4-5 anterolateral interbody fusion with percutaneous posterior pedicle screw instrumentation. Hospitalist service was consulted for medical management. Patient seen after surgery. He complained of pain and rated the pain at 6-7/10. Review of systems is otherwise negative. [facility] Medical History Bilirubinuria Contact with or exposure to other viral diseases Lumbosacral radiculopathy at L5 History of steroid therapy Smokeless tobacco use Tension headache Agent orange exposure Bilateral primary osteoarthritis of knee Wears hearing aid Cancer Alcohol use Diabetes Ambulates with cane Arthritis Prostate disease High cholesterol (~08/21/23) Restless legs Back pain Injury of head and neck Syncope History of IBS Shortness of breath on exertion History of pain when walking History of echocardiogram History of stress test Cardiology follow-up encounter Tear of medial meniscus of right knee Fibromyalgia BPH w urinary obs/LUTS Left knee DJD Right knee DJD Fusion of spine, cervical region Chondromalacia, right knee Chondromalacia, left knee Chondromalacia of both patellae COVID-19 virus detected (11/19/20) Nonrheumatic aortic (valve) stenosis with insufficiency Opioid dependence Obesity Asthma Hyperlipemia Essential (primary) hypertension Atherosclerotic heart disease of [place] coronary artery without angina pectoris Type 2 diabetes mellitus Spondylosis of lumbosacral region without myelopathy or radiculopathy Spinal stenosis of lumbosacral region Radiculopathy of lumbosacral region Degeneration of intervertebral disc of lumbosacral region Arthropathy of cervical facet joint Degeneration of cervical disc without myelopathy Cervical spondylosis Home Medications ?Medication ?Instructions ?Recorded ?Last Taken ?Type aspirin 81 mg tablet,delayed 81 mg PO DAILY HEART HEALTH 12/23/15 12/28/23 History release multivitamin 1 tab PO DAILY supplement 07/09/19 01/18/24 History albuterol sulfate 90 mcg/actuation 1 - 2 puff inhalation Q4H PRN PRN 04/21/22 Unknown Rx aerosol inhaler Wheezing #8.5 grams handicap placard #1 ea 04/21/22 Unknown Rx blood sugar diagnostic (FreeStyle #100 ea 09/15/22 Unknown Rx Lite Strips) blood-glucose meter (FreeStyle #1 ea 09/15/22 Unknown Rx Lite Meter kit) fluticasone propionate 50 1 - 2 spray intranasal BID PRN 04/27/23 01/18/24 Rx mcg/actuation nasal allergies, congestion #16 grams spray,suspension atorvastatin 40 mg tablet 40 mg PO QHS CHOLESTEROL #90 tabs 08/21/23 01/18/24 Rx trazodone 50 mg tablet 50 - 100 mg (1 - 2 x 50 mg) PO QHS 08/21/23 01/18/24 Rx sleep #90 tabs metformin 500 mg tablet 500 mg PO BID DIABETIC 1 month #60 12/12/23 01/18/24 Rx tabs linaclotide 72 mcg capsule 72 mcg PO DAILY irritable colon 01/02/24 01/18/24 History (Linzess) acetaminophen 500 mg tablet 1,000 mg (2 x 500 mg) PO Q8 PAIN 01/03/24 Unknown Rx #0 tabs duloxetine 30 mg capsule,delayed 30 mg PO DAILY ANXIETY #30 caps 01/03/24 01/18/24 Rx release gabapentin 400 mg capsule 400 mg PO TID PAIN #90 caps 01/03/24 01/19/24 Rx pantoprazole 40 mg tablet,delayed 40 mg PO DAILY GERD #30 tabs 01/03/24 01/19/24 Rx release baclofen 5 mg tablet 5 mg PO BID PAIN 01/16/24 01/18/24 History oxycodone-acetaminophen 7.5 mg-325 1 tab PO BID PAIN 01/16/24 01/19/24 History mg tablet Allergy/AdvReac Type Severity Reaction Status Date / Time adhesive tape Allergy Rash Verified 01/16/24 15:28 sertraline (From Zoloft) AdvReac Unknown Verified 01/16/24 15:28 Family History Brother Heart disease Myocardial infarction 60's CAD (coronary artery disease) Father Myocardial infarction 65 CAD (coronary artery disease) Mother HLD (hyperlipidemia) when son was 16 following MVA, healthy aside HLD. Surgical History Hx of laminectomy S/P laminectomy Status post discectomy for herniated nucleus pulposus History of lateral meniscus repair of right knee (~2021) Hx laparoscopic cholecystectomy (~11/2022) Hx of bilateral cataract extraction H/O cervical spine surgery (08/2020) History of herniorrhaphy History of carpal tunnel release History of back surgery History of left heart catheterization (09/09/11) H/O coronary artery bypass surgery (09/14/11) Social History household members: spouse Smoking Status: Former smoker Smokeless tobacco user: chewing tobacco alcohol intake: current alcohol intake frequency: a few times a month substance use type: does not use caffeine: Yes Type: coffee Number of servings: 2 ROS Constitutional Constitutional: Denies anorexia, chills, fatigue, fever(s), malaise or weakness Eyes Eyes: Denies change in vision ENT HEENT: Denies dysphagia or headache(s) Cardiovascular Cardiovascular: Denies chest pain, dyspnea on exertion, edema, lightheadedness, orthopnea, palpitations, paroxysmal nocturnal dyspnea or rapid heart rate Respiratory/Chest Respiratory/Chest: Denies cough, dyspnea, productive cough, shortness of breath at rest or shortness of breath with exertion Gastrointestinal Gastrointestinal: Denies abdominal pain, constipation, diarrhea, nausea or vomiting Genitourinary Genitourinary: Denies burning urination or dysuria Musculoskeletal Musculoskeletal: Reports back pain Neurologic Neurologic: Denies confusion, dizziness, focal weakness, headache(s), numbness or syncope Psychiatric Psychiatric: Denies anxiety or depression Endocrine Endocrinology: Denies change in body appearance Hematologic/Lymphatic Hematologic/Lymphatic: Denies anemia Physical Exam Const oriented x3, no apparent distress and average body habitus Constitutional Narrative: a bit drowsy but awakens to voice General Appearance: cooperative HEENT normocephalic, head/scalp atraumatic, hearing grossly normal bilaterally, moist oral mucous membranes and oropharynx normal Mouth: oral and palatal mucosa normal Eyes PERRL, EOMs intact bilaterally and conjunctivae normal Neck no lymphadenopathy and supple Resp Resp Narrative: diminished breath sounds bibasally, no wheezes or crackles. Cardio regular rate, regular rhythm, S1 normal heart sound, S2 normal heart sound and no murmurs GI normal to inspection, nondistended, normoactive bowel sounds, soft to palpation, non-tender and non-distended Extremity normal to inspection, full ROM and no clubbing, cyanosis or edema Skin Skin Narrative: intact dressing Neuro oriented x3, CN's II-XII intact bilaterally, moves all extremities and no focal motor deficits Sensorium / Orientation: awake and alert Motor Exam: strength 5/5 throughout Psych affect normal Lab / Micro Data 01/19/24 13:30 01/17/24 09:59 Labs: Laboratory Results - last 24 hr 01/19/24 09:30: POC Glucose 84 01/19/24 13:30: Hgb 8.3 L, Hct 25.5 L Micro: Microbiology 01/17/24 09:59 Swab (Method) Nasal Screen MRSA/MSSA - Final Imaging Radiology Impression Lumbar Spine X-Ray 01/19/24 11:30 IMPRESSION: undefined Charges/Coding Visit Charges Inpatient E&M: 95932 Subs Hosp L2 Procedures Hospitalists Procedures: 20518 Advncd Care Plan 30 Min
[2024-01-19] MEDS: metFORMIN HCl 500 MG Tablet PO (18:53)
[2024-01-19] MEDS: oxyCODONE 5 MG Tablet PO ×2 (18:53→22:59)
[2024-01-19] MEDS: Ensure Surgery 237 ML LIQUID PO (18:54)
[2024-01-19] MEDS: 0.9% Saline Lock 10 ML Syringe IV ×2 (21:04→21:24)
[2024-01-19] MEDS: Gabapentin 400 MG Capsule PO (21:04)
[2024-01-19] MEDS: Acetaminophen 500 MG Tablet 1000 MG PO (21:04)
[2024-01-19] MEDS: Morphine 4 MG/ML Syringe IV (21:04)
[2024-01-19] MEDS: Methocarbamol 500 MG Tablet 1000 MG PO (21:05)
[2024-01-19] MEDS: Senna/Docusate Sodium 1 Tablet 2 TABLET PO (21:06)
[2024-01-19] MEDS: Atorvastatin Calcium 40 MG Tablet PO (21:11)
[2024-01-19] MEDS: 0.9% Normal Saline (250mL Bag) 250 ML 15 ML IV (21:14)
[2024-01-19] MEDS: traZODone 50 MG Tablet PO (21:14)
[2024-01-19] MEDS: Ondansetron 4 MG/2 ML Vial IV (21:24)
--- NOTE | 2024-01-19 22:13 | PCM.RX.CS ---
Consult Antibiotic Management Pharmacy has been consulted to manage selected antibiotic: Vancomycin Type of Intervention Type of Consult: New start Suspected Infection Suspected Infection: Osteomyelitis Labs Labs: Sodium 138 mmol/L (136-145) 01/17/24 09:59 Potassium 3.8 mmol/L (3.5-5.1) 01/17/24 09:59 Chloride 103 mmol/L (98-107) 01/17/24 09:59 Carbon Dioxide 29.0 mmol/L (21.0-32.0) 01/17/24 09:59 Anion Gap 6 (5-15) 01/17/24 09:59 BUN 17 mg/dL (7-18) 01/17/24 09:59 Creatinine 1.20 mg/dL (0.70-1.30) 01/17/24 09:59 Est GFR (MDRD) Af Amer 77 mL/min (>60) 01/17/24 09:59 Est GFR (MDRD) Non-Af 64 mL/min (>60) 01/17/24 09:59 BUN/Creatinine Ratio 14.2 RATIO (10-20) 01/17/24 09:59 Glucose 127 mg/dL (74-106) H 01/17/24 09:59 Microbiology Microbiology: Microbiology 01/17/24 09:59 Swab (Method) Nasal Screen MRSA/MSSA - Final Dosing Weight Weight used for dosin.9 kg Estimated Creatinine Clearance Estimated Creatinine Clearance: 62 Goal Trough Goal Trough: 15-20 mcg/mL Pharmacy Plan for Drug Dosing Pharmacy Plan for Drug Dosing: Pharmacy Service will continue to monitor and adjust dosing as required. Follow-Up Labs Follow-Up Labs: Trough: Vancomycin Date/Time Labs Ordered Labs to be done on [date and time ordered]: 01/21/24 @0130
[2024-01-20] MEDS: Morphine 4 MG/ML Syringe IV ×2 (00:42→04:32)
[2024-01-20 02:14] VITALS: BP 145/88; PULSE 106; RESP 18; TEMP 36.2; O2SAT 96
[2024-01-20] MEDS: Methocarbamol 500 MG Tablet 1000 MG PO ×4 (02:22→17:58)
[2024-01-20] MEDS: Vancomycin IV 1,000 MG/200 ML BAG 200 MG IV ×2 (02:23→14:50)
[2024-01-20 04:29] VITALS: BP 145/79; PULSE 100; RESP 18; TEMP 36.9; O2SAT 94
[2024-01-20] MEDS: Ondansetron 4 MG/2 ML Vial IV (05:39)
[2024-01-20 05:56] LABS: Hematocrit 24.5 % (40-54); Hemoglobin 7.8 g/dL (13.0-16.5); Mean Corp Hgb Conc 31.8 g/dL (32-36); Mean Corpuscular Hgb 28.8 pg (27.0-32.0); Mean Corpuscular Volume 90.4 fL (80-94); Mean Platelet Vol. 8.2 fl (6.2-12.0); Platelet Count 273 K/mm3 (150-450); RBC Distribution Width CV 12.7 % (11.6-14.6); RBC Distribution Width SD 41.6 fl (35.1-43.9); Red Blood Count 2.71 M/mm3 (4.6-6.2); White Blood Count 6.9 K/mm3 (4.4-11.0)
[2024-01-20] MEDS: Cefepime HCl 2 GM in 0.9% Normal Saline (100mL MB+) 100 ML IV ×3 (06:23→21:23)
[2024-01-20] MEDS: 0.9% Normal Saline (250mL Bag) 250 ML 15 ML IV ×2 (06:23→21:25)
[2024-01-20] MEDS: Acetaminophen 500 MG Tablet 1000 MG PO ×3 (06:23→21:24)
[2024-01-20] MEDS: Gabapentin 400 MG Capsule PO ×3 (06:24→21:24)
[2024-01-20 06:40] LABS: Anion Gap 3 (5-15); BUN 19 mg/dL (7-18); BUN/Creat Ratio 18.3 RATIO (10-20); Calcium,Total 9.1 mg/dL (8.5-10.1); Chloride 102 mmol/L (98-107); Creatinine, Serum 1.04 mg/dL (0.70-1.30); EST Glomerular Filtration Rate 75 mL/min (>60); Est Glom Filt Rate - Afr Amer 91 mL/min (>60); Estimated Creatinine Clearance 68.24 ml/min; Glucose 150 mg/dL (74-106); Potassium 4.1 mmol/L (3.5-5.1); Sodium Level 136 mmol/L (136-145)
[2024-01-20 08:42] VITALS: PULSE 100
[2024-01-20] MEDS: Senna/Docusate Sodium 1 Tablet 2 TABLET PO ×2 (08:56→21:24)
[2024-01-20] MEDS: Ensure Surgery 237 ML LIQUID PO ×3 (08:56→17:08)
[2024-01-20] MEDS: metFORMIN HCl 500 MG Tablet PO ×2 (08:56→17:06)
[2024-01-20] MEDS: DULoxetine Hcl 30 MG Capsule PO (08:57)
[2024-01-20] MEDS: Multivitamins,Therapeutic Tablet 1 TABLET PO (08:57)
[2024-01-20] MEDS: Pantoprazole Sodium 40 MG Tablet PO (09:49)
[2024-01-20 09:51] VITALS: BP 117/64; PULSE 111; RESP 20; TEMP 36.5; O2SAT 100
[2024-01-20] MEDS: oxyCODONE 5 MG Tablet PO ×3 (10:02→21:24)
--- NOTE | 2024-01-20 11:35 | CASEMGMT ---
MATIAS SAUER chart review: Patient was admitted 01/01-01/02 for intractable back pain and recent discitis and 12/09-12/11 for discitis. See MATIAS SAUER assessment from 12/11/23. Patient was discharged to home with support from and follow up with [facility] ortho. Patient returned 01/19/24 for planned spinal fusion with Dr. Bradshaw. MATIAS CM in to discuss discharge needs with patient, at bedside. Per , ID to be consulted for possible IV ATBs at discharge. Patient has had [facility] and [facility] in the past for IV ATBs and would like again if needed. CM to monitor progress with IV ATBS and needs at discharge. Patient and had no further questions or conerns.
--- NOTE | 2024-01-20 12:23 | PCM.PN.HOSP ---
Reason for Visit Reason for Visit: Diagnoses Other secondary scoliosis, lumbar region (01/19/24) Osteomyelitis of vertebra, lumbar region (01/19/24) Discitis, unspecified, lumbar region (01/19/24) Encounter for other preprocedural examination (01/19/24) Subjective Subjective Still with back pain. Urinating frequently. Feels similar to when he had prostate issues in the past. Does not actively take tamsulosin. Objective Data Objective Data Vital Signs: Vital Signs Temp Pulse Resp BP Pulse Ox O2 Del Method O2 Flow Rate 36.5 C L 111 H 20 H 117/64 100 Room Air 3 01/20/24 09:51 01/20/24 09:51 01/20/24 09:51 01/20/24 09:51 01/20/24 09:51 01/20/24 09:51 01/19/24 22:15 Oxygen Flow Rate (L/min) 3 Oxygen Delivery Method Room Air Weight: 77.9 kg Body Mass Index (BMI) 24.6 Intake & Output: Intake and Output for Last 24 Hours 01/18/24 01/19/24 01/20/24 23:59 23:59 23:59 Intake Total 3834 / 3834 1229.75 / 1229.75 Output Total 1700 / 1700 1350 / 1350 Balance 2134 / 2134 -120.25 / -120.25 Medical Nutrition Assessment Dietitian: Malnutrition Criteria Met Start: 01/20/24 10:16 Freq: Status: Active Protocol: Document 01/20/24 10:16 SLA (Rec: 01/20/24 10:16 SLA [email or web address]) Nutrition Malnutrition Evidence of Malnutrition Exists Yes Malnutrition (severe): Chronic Evidenced By Suboptimal Energy Intake ( Severe),Weight Loss (Severe) Clinical Problem Chronic Disease or Condition Related Malnutrition Etiology related to back issues and pain causing pt to have inadequate energy intake Signs/Symptoms as evidenced by 21.6% unintended wt loss and po intake < 75% 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 Lab / Micro Data 01/20/24 05:39 06/08/24 05:39 Labs: Laboratory Results - last 24 hr 01/19/24 13:30: Hgb 8.3 L, Hct 25.5 L 01/20/24 05:39: WBC 6.9, RBC 2.71 L, Hgb 7.8 L, Hct 24.5 L, MCV 90.4, MCH 28.8, MCHC 31.8 L, RDW Std Deviation 41.6, RDW Coeff of Frankie 12.7, Plt Count 273, MPV 8.2, Sodium 136, Potassium 4.1, Chloride 102, Carbon Dioxide 31.0, Anion Gap 3 L, BUN 19 H, Creatinine 1.04, Estim Creat Clear Calc 68.24, Est GFR (MDRD) Af Amer 91, Est GFR (MDRD) Non-Af 75, BUN/Creatinine Ratio 18.3, Glucose 150 H, Calcium 9.1 Micro: Microbiology 01/17/24 09:59 Swab (Method) Nasal Screen MRSA/MSSA - Final Radiography Diagnostic Testing: Radiology Impression Lumbar Spine X-Ray 01/19/24 11:30 IMPRESSION: undefined Physical Exam Const alert and no apparent distress Constitutional Narrative: Afebrile. HEENT head/scalp atraumatic and moist oral mucous membranes Extremity normal to inspection Neuro moves all extremities Sensorium / Orientation: awake and alert Assessment & Plan Assessment/Plan (1) Acute blood loss anemia: PLAN: Plan Acute blood loss anemia Hemoglobin is dropped from 10.2-7.8. Currently patient is asymptomatic. Advise just continue to monitor and start him on ferrous sulfate. I do not advise a transfusion at this time. Urinary frequency Patient with known prostate issues. Does not take tamsulosin currently. Patient did have catheter for surgery and is on pain medication so I think he may have issues with urinary frequency or even possibly retention. Recommended resuming tamsulosin for the time being. He is agreeable. Discitis Status post L4-5 posterior percutaneous pedicle screw instrumentation, prone: ? L4-5 posterior pedicle screw instrumentation On vancomycin and cefepime Management per spine surgery. Will defer to primary service if infectious disease consultation will be necessary. VTE prophylaxis: SCDs. Discussed with the patient's at bedside. Charges/Coding Visit Charges Inpatient E&M: 68971 Subs Hosp L1
--- NOTE | 2024-01-20 12:57 | NURSING ---
Per verbal order from Dr Wheatley hold the blood transfusion administration, lab notified.
[2024-01-20 14:54] VITALS: BP 119/62; PULSE 96; RESP 20; TEMP 37.2; O2SAT 98
[2024-01-20] MEDS: Tamsulosin HCl 0.4 MG Capsule PO (15:40)
[2024-01-20 19:56] VITALS: BP 132/72; PULSE 99; RESP 18; TEMP 37.2; O2SAT 96
[2024-01-20] MEDS: Atorvastatin Calcium 40 MG Tablet PO (21:24)
[2024-01-20] MEDS: traZODone 50 MG Tablet PO (21:24)
[2024-01-21] VITALS (11 sets, daily range): BP systolic 93–125; BP diastolic 55–75; PULSE 81–98; RESP 16–18; TEMP 36.6–36.9; O2SAT 94–99
[2024-01-21] MEDS: Methocarbamol 500 MG Tablet 1000 MG PO ×5 (01:01→22:22)
[2024-01-21 01:54] LABS: Absolute Lymphocyte Count 1.05 X10^3/uL (0.83-4.51); Absolute Neutrophil Count 5.7 X10^3/uL (2.0-7.7); Basophil# 0.02 X10^3/uL; Basophil% 0.3 % (0-1); Eosinophils% 1.3 % (0-5); Hematocrit 20.1 % (40-54); Hemoglobin 6.5 g/dL (13.0-16.5); Lymphocyte # 1.05 X10^3/ul (0.83-4.51); Lymphocyte % 13.6 % (19-41); Mean Corp Hgb Conc 32.3 g/dL (32-36); Mean Corpuscular Volume 89.7 fL (80-94); Mean Platelet Vol. 8.3 fl (6.2-12.0); Monocyte# 0.77 X10^3/uL; NRBC Flagged by Analyzer 0 % (0-5); Neutrophil # 5.74 X10^3/uL (2.7-7.7); Neutrophil % 74.5 % (47-70); Platelet Count 193 K/mm3 (150-450); RBC Distribution Width CV 12.8 % (11.6-14.6); RBC Distribution Width SD 41.8 fl (35.1-43.9); Red Blood Count 2.24 M/mm3 (4.6-6.2); White Blood Count 7.7 K/mm3 (4.4-11.0)
[2024-01-21 02:17] LABS: Vancomycin, Trough Level 11.6 ug/mL (5.0-15.0)
--- NOTE | 2024-01-21 02:37 | PCM.RX.CS ---
Consult Antibiotic Management Pharmacy has been consulted to manage selected antibiotic: Vancomycin Type of Intervention Type of Consult: Follow-up Suspected Infection Suspected Infection: Osteomyelitis Labs Labs: Sodium 136 mmol/L (136-145) 01/20/24 05:39 Potassium 4.1 mmol/L (3.5-5.1) 01/20/24 05:39 Chloride 102 mmol/L (98-107) 01/20/24 05:39 Carbon Dioxide 31.0 mmol/L (21.0-32.0) 01/20/24 05:39 Anion Gap 3 (5-15) L 01/20/24 05:39 BUN 19 mg/dL (7-18) H 01/20/24 05:39 Creatinine 1.04 mg/dL (0.70-1.30) 01/20/24 05:39 Est GFR (MDRD) Af Amer 91 mL/min (>60) 01/20/24 05:39 Est GFR (MDRD) Non-Af 75 mL/min (>60) 01/20/24 05:39 BUN/Creatinine Ratio 18.3 RATIO (10-20) 01/20/24 05:39 Glucose 150 mg/dL (74-106) H 01/20/24 05:39 Vancomycin Trough 11.6 ug/mL (5.0-15.0) 01/21/24 01:45 Microbiology Microbiology: Microbiology 01/19/24 13:34 Wound - Other Gram Stain - Final 01/19/24 13:34 Wound - Other Wound Culture - Preliminary No growth-Final to follow 01/19/24 13:34 Wound - Other Gram Stain - Final 01/19/24 13:34 Wound - Other Wound Culture - Preliminary No growth-Final to follow 01/17/24 09:59 Swab (Method) Nasal Screen MRSA/MSSA - Final Dosing Weight Weight used for dosin kg Estimated Creatinine Clearance Estimated Creatinine Clearance: 68 Goal Trough Goal Trough: 15-20 mcg/mL Pharmacy Plan for Drug Dosing Pharmacy Plan for Drug Dosing: Vancomycin trough level of 11.6, drawn 10.5hrs post-dose, was below the target range of 15-20. Will increase dose to 1500mg q12h, and will draw another trough prior to fourth dose of the new regimen. Pharmacy Service will continue to monitor and adjust dosing as required. Follow-Up Labs Follow-Up Labs: Trough: Vancomycin Date/Time Labs Ordered Labs to be done on [date and time ordered]: 01/22/24 @1400
[2024-01-21] MEDS: Vancomycin HCl 1,500 MG in 0.9% Normal Saline (500mL Bag) 500 ML 250 MG IV ×2 (02:47→14:32)
[2024-01-21] MEDS: 0.9% Saline Lock 10 ML Syringe IV ×3 (06:02→12:52)
[2024-01-21] MEDS: Cefepime HCl 2 GM in 0.9% Normal Saline (100mL MB+) 100 ML IV ×3 (06:02→22:17)
[2024-01-21] MEDS: Acetaminophen 500 MG Tablet 1000 MG PO ×3 (06:03→22:18)
[2024-01-21] MEDS: Gabapentin 400 MG Capsule PO ×3 (06:03→22:21)
[2024-01-21] MEDS: Morphine 4 MG/ML Syringe IV (08:19)
[2024-01-21] MEDS: Ondansetron 4 MG/2 ML Vial IV (08:20)
[2024-01-21] MEDS: metFORMIN HCl 500 MG Tablet PO ×2 (08:23→17:47)
[2024-01-21] MEDS: Senna/Docusate Sodium 1 Tablet 2 TABLET PO ×2 (08:23→22:18)
[2024-01-21] MEDS: LINACLOTIDE 72 MCG CAPSULE PO (08:24)
[2024-01-21] MEDS: DULoxetine Hcl 30 MG Capsule PO (08:24)
[2024-01-21] MEDS: Multivitamins,Therapeutic Tablet 1 TABLET PO (08:24)
[2024-01-21] MEDS: Pantoprazole Sodium 40 MG Tablet PO (08:25)
[2024-01-21] MEDS: 0.9% Normal Saline (500mL Bag) 500 ML 15 ML IV (08:47)
[2024-01-21] MEDS: oxyCODONE 5 MG Tablet PO ×3 (10:07→22:17)
--- NOTE | 2024-01-21 11:02 | PN.HOSP_ITS ---
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 Objective Data Objective Data Vital Signs: Vital Signs Temp Pulse Resp BP Pulse Ox O2 Del Method O2 Flow Rate 36.6 C 93 18 114/65 97 Nasal Cannula 2 01/21/24 09:58 01/21/24 09:58 01/21/24 09:58 01/21/24 09:58 01/21/24 09:58 01/21/24 09:58 01/21/24 09:58 Oxygen Flow Rate (L/min) 2 Oxygen Delivery Method Nasal Cannula Weight: 77.9 kg Body Mass Index (BMI) 24.6 Intake & Output: Intake and Output for Last 24 Hours 01/19/24 01/20/24 01/21/24 23:59 23:59 23:59 Intake Total 3834 / 3834 1943.58 / 1943.58 1498.75 / 1498.75 Output Total 1700 / 1700 1350 / 1350 1200 / 1200 Balance 2134 / 2134 593.58 / 593.58 298.75 / 298.75 Medical Nutrition Assessment Dietitian: Malnutrition Criteria Met Start: 01/20/24 10:16 Freq: Status: Active Protocol: Document 01/20/24 10:16 SLA (Rec: 01/20/24 10:16 SLA [email or web address]) Nutrition Malnutrition Evidence of Malnutrition Exists Yes Malnutrition (severe): Chronic Evidenced By Suboptimal Energy Intake ( Severe),Weight Loss (Severe) Clinical Problem Chronic Disease or Condition Related Malnutrition Etiology related to back issues and pain causing pt to have inadequate energy intake Signs/Symptoms as evidenced by 21.6% unintended wt loss and po intake < 75% of est 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 Lab / Micro Data 01/21/24 01:45 01/20/24 05:39 Labs: Laboratory Results - last 24 hr 01/17/24 10:06: Blood Type Cancelled, A1 Antigen Typing Cancelled, Rho(D) Type Cancelled, Antibody Screen Cancelled, Crossmatch See Detail 01/21/24 01:45: WBC 7.7, RBC 2.24 L, Hgb 6.5 L, Hct 20.1 L, MCV 89.7, MCH 29.0, MCHC 32.3, RDW Std Deviation 41.8, RDW Coeff of Frankie 12.8, Plt Count 193, MPV 8.3, Immature Gran % (Auto) 0.300, Neut % (Auto) 74.5 H, Lymph % (Auto) 13.6 L, [place] % (Auto) 10.0, Eos % (Auto) 1.3, Baso % (Auto) 0.3, Absolute Neuts (auto) 5.7, Absolute Lymphs (auto) 1.05, Nucleated RBC % 0, Vancomycin Trough 11.6 Micro: Microbiology 01/19/24 13:34 Wound - Other Gram Stain - Final 01/19/24 13:34 Wound - Other Wound Culture - Preliminary No growth-Final to follow 01/19/24 13:34 Wound - Other Anaerobic Culture - Preliminary No growth in 48 hours. 01/19/24 13:34 Wound - Other Gram Stain - Final 01/19/24 13:34 Wound - Other Wound Culture - Preliminary No growth-Final to follow 01/19/24 13:34 Wound - Other Anaerobic Culture - Preliminary No growth in 48 hours. 01/17/24 09:59 Swab (Method) Nasal Screen MRSA/MSSA - Final Physical Exam Const alert Constitutional Narrative: Uncomfortable but nontoxic. Afebrile. Resp normal respiratory effort and no retractions Assessment & Plan Assessment/Plan (1) Acute blood loss anemia: PLAN: Plan Acute blood loss anemia * Hemoglobin is dropped from 10.2-6.5. * Patient has already been typed and crossed for 2 units. Will give the patient 1 unit of blood and reevaluate in the morning. Urinary frequency * Patient with known prostate issues. Does not take tamsulosin currently. Patient did have catheter for surgery and is on pain medication so I think he may have issues with urinary frequency or even possibly retention. * Started on tamsulosin. Discitis * Status post L4-5 posterior percutaneous pedicle screw instrumentation, prone: ? L4-5 posterior pedicle screw instrumentation * On vancomycin and cefepime * Management per spine surgery. Will defer to primary service if infectious disease consultation will be necessary. VTE prophylaxis: SCDs. Charges/Coding Visit Charges Inpatient E&M: 78376 Subs Hosp L1
--- NOTE | 2024-01-21 11:54 | PCM.PN.ORT ---
Subjective Subjective Patient is seen on rounds. He states that he feels little better today than he did yesterday. The right anterior thigh pain now comes and goes and is not constant as it was prior to surgery. His 3 dressings are all dry. I acknowledge Dr. Wheatley's note from this morning. He was up yesterday apparently with only a cane which is a very good sign. So far we have not been able to isolate an organism of infection. He is to be seen tomorrow by Dr. Wilkinson. I presume that a PICC line will be started and the patient may even be able to go home. His progress is satisfactory. Objective Data Objective Data Vital Signs: Vital Signs Temp Pulse Resp BP Pulse Ox O2 Del Method O2 Flow Rate 97.9 F 93 18 93/56 L 99 Nasal Cannula 2 01/21/24 10:58 01/21/24 10:58 01/21/24 10:58 01/21/24 10:58 01/21/24 10:58 01/21/24 10:58 01/21/24 10:58 Oxygen Flow Rate (L/min) 2 Oxygen Delivery Method Nasal Cannula Weight: 171 lb 11.841 oz Body Mass Index (BMI) 24.6 Intake & Output: Intake and Output for Last 24 Hours 01/19/24 01/20/24 01/21/24 23:59 23:59 23:59 Intake Total 3834 / 3834 1943.58 / 1943.58 1498.75 / 1498.75 Output Total 1700 / 1700 1350 / 1350 1500 / 1500 Balance 2134 / 2134 593.58 / 593.58 -1.25 / -1.25 Medical Nutrition Assessment Dietitian: Malnutrition Criteria Met Start: 01/20/24 10:16 Freq: Status: Active Protocol: Document 01/20/24 10:16 NAGA (Rec: 01/20/24 10:16 NAGA [email or web address]) Nutrition Malnutrition Evidence of Malnutrition Exists Yes Malnutrition (severe): Chronic Evidenced By Suboptimal Energy Intake ( Severe),Weight Loss (Severe) Clinical Problem Chronic Disease or Condition Related Malnutrition Etiology related to back issues and pain causing pt to have inadequate energy intake Signs/Symptoms as evidenced by 21.6% unintended wt loss and po intake < 75% of est nutritional needs 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 Lab / Micro Data 01/21/24 01:45 01/20/24 05:39 Labs: Laboratory Results - last 24 hr 01/17/24 10:06: Blood Type Cancelled, A1 Antigen Typing Cancelled, Rho(D) Type Cancelled, Antibody Screen Cancelled, Crossmatch See Detail 01/21/24 01:45: WBC 7.7, RBC 2.24 L, Hgb 6.5 L, Hct 20.1 L, MCV 89.7, MCH 29.0, MCHC 32.3, RDW Std Deviation 41.8, RDW Coeff of Frankie 12.8, Plt Count 193, MPV 8.3, Immature Gran % (Auto) 0.300, Neut % (Auto) 74.5 H, Lymph % (Auto) 13.6 L, [place] % (Auto) 10.0, Eos % (Auto) 1.3, Baso % (Auto) 0.3, Absolute Neuts (auto) 5.7, Absolute Lymphs (auto) 1.05, Nucleated RBC % 0, Vancomycin Trough 11.6 Micro: Microbiology 01/19/24 13:34 Wound - Other Gram Stain - Final 01/19/24 13:34 Wound - Other Wound Culture - Preliminary No growth-Final to follow 01/19/24 13:34 Wound - Other Anaerobic Culture - Preliminary No growth in 48 hours. 01/19/24 13:34 Wound - Other Gram Stain - Final 01/19/24 13:34 Wound - Other Wound Culture - Preliminary No growth-Final to follow 01/19/24 13:34 Wound - Other Anaerobic Culture - Preliminary No growth in 48 hours. 01/17/24 09:59 Swab (Method) Nasal Screen MRSA/MSSA - Final
[2024-01-21] MEDS: Morphine 2 MG/ML Syringe IV (12:52)
[2024-01-21] MEDS: Tamsulosin HCl 0.4 MG Capsule PO (17:47)
[2024-01-21] MEDS: Atorvastatin Calcium 40 MG Tablet PO (22:18)
[2024-01-21] MEDS: traZODone 50 MG Tablet PO (22:21)
[2024-01-22] VITALS (7 sets, daily range): BP systolic 112–126; BP diastolic 60–74; PULSE 70–91; RESP 16–18; TEMP 36.4–36.9; O2SAT 96–100
[2024-01-22] MEDS: Vancomycin HCl 1,500 MG in 0.9% Normal Saline (500mL Bag) 500 ML 250 MG IV (02:33)
[2024-01-22 04:54] LABS: Absolute Lymphocyte Count 1.14 X10^3/uL (0.83-4.51); Absolute Neutrophil Count 4.9 X10^3/uL (2.0-7.7); Basophil# 0.03 X10^3/uL; Basophil% 0.4 % (0-1); Eosinophil# 0.21 X10^3/uL; Hematocrit 22.2 % (40-54); Hemoglobin 7.2 g/dL (13.0-16.5); Lymphocyte # 1.14 X10^3/ul (0.83-4.51); Lymphocyte % 16.2 % (19-41); Mean Corp Hgb Conc 32.4 g/dL (32-36); Mean Corpuscular Hgb 28.8 pg (27.0-32.0); Mean Corpuscular Volume 88.8 fL (80-94); Mean Platelet Vol. 8.5 fl (6.2-12.0); Monocyte# 0.68 X10^3/uL; Monocyte% 9.7 % (0-10); NRBC Flagged by Analyzer 0 % (0-5); Neutrophil # 4.93 X10^3/uL (2.7-7.7); Neutrophil % 70.1 % (47-70); Platelet Count 216 K/mm3 (150-450); RBC Distribution Width CV 13.5 % (11.6-14.6); RBC Distribution Width SD 43.8 fl (35.1-43.9)
[2024-01-22] MEDS: Acetaminophen 500 MG Tablet 1000 MG PO ×3 (05:04→21:01)
[2024-01-22] MEDS: Cefepime HCl 2 GM in 0.9% Normal Saline (100mL MB+) 100 ML IV ×3 (05:04→22:43)
[2024-01-22] MEDS: Gabapentin 400 MG Capsule PO ×3 (05:04→20:59)
[2024-01-22] MEDS: Methocarbamol 500 MG Tablet 1000 MG PO ×4 (05:05→22:43)
[2024-01-22] MEDS: 0.9% Normal Saline (250mL Bag) 250 ML 15 ML IV (05:09)
[2024-01-22] MEDS: oxyCODONE 5 MG Tablet PO ×3 (05:17→20:58)
--- NOTE | 2024-01-22 08:05 | OP.PCM_ITS ---
Report of Operation Date of Procedure: 01/19/24 Pre-Operative Diagnosis: L4-5 discitis, osteomyelitis, degenerative scoliosis, foraminal stenosis, prior laminectomy Post-Operative Diagnosis: same Surgery/Procedure Performed:: L4-5 anterolateral debridement, irrigation, disc ectomy, partial corpectomy, oblique lumbar interbody fusion (OLIF), left sided approach, lateral decubitus: . L4-5 anterolateral debridement in the form of discectomy with partial corpectomy 98560 ? L4-5 anterolateral spinal fusion 40790 ? L4-5 insertion of cage 10978 ? Allograft cancellous chips with DBX [id number] Surgeon: co-surgeons- Dr. Bradshaw, Dr. Neff Type of Anesthesia: General Description of Procedure: HPI: Patient is a 68-year-old male with infected L4-L5 disc and significant bony destruction of the adjacent vertebral bodies was evaluated by Dr. Bradshaw and felt to be appropriate for oblique lumbar interbody fusion, discectomy, corpectomy. Given the extensive local disease process and adjacent large vessels vascular surgery is requested for assistance with exposure. Description procedure: Upon obtaining form consent and verification correct patient procedure site patient was taken to the operating room was placed under general anesthesia. He was then positioned prepped and draped in usual sterile fashion and timeout was performed. Oblique incision was made superior to the left iliac crest and Bovie electrocautery was dissect down through subcutaneous tissue. Further dissection was carried down to the fascia which was then incised and the muscle layers of the abdomen were split and retracted. Next we entered into the retroperitoneal space and blunt dissection was used dissect free the abdominal contents from the retroperitoneal space until the psoas muscle was identified. Self-retaining retractors then put in position and further dissection was performed with combination of Bovie and blunt dissection. Once the L4-L5 disc space was identified Dr. Bradshaw performed the discectomy, corpectomy, implant placement which she will dictate in more detail separately. Once this was completed the surgical field was inspected for hemostasis and self-retaining retractors removed allowing the abdominal contents to return to their [place] position. The muscle layer were then closed individually with running 1 Vicryl. The incision was then copiously irrigated with saline and then the skin closed with 3-0 Vicryl followed by 4-0 Monocryl and Steri-Strips. Dry sterile dressing was then applied and the patient was repositioned for further procedures performed by Dr. Bradshaw which he will describe in further detail separately.
--- NOTE | 2024-01-22 08:32 | PCM.PN.HOSP ---
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 Objective Data Objective Data Vital Signs: Vital Signs Temp Pulse Resp BP Pulse Ox O2 Del Method O2 Flow Rate 36.7 C 78 16 117/74 98 Room Air 2 01/22/24 05:14 01/22/24 05:14 01/22/24 05:14 01/22/24 05:14 01/22/24 05:14 01/22/24 05:14 01/21/24 11:58 Oxygen Flow Rate (L/min) 2 Oxygen Delivery Method Room Air Weight: 77.9 kg Body Mass Index (BMI) 24.6 Intake & Output: Intake and Output for Last 24 Hours 01/20/24 01/21/24 01/22/24 23:59 23:59 23:59 Intake Total 1943.58 / 1943.58 2643.08 / 2643.08 730 / 730 Output Total 1350 / 1350 2150 / 2150 300 / 300 Balance 593.58 / 593.58 493.08 / 493.08 430 / 430 Medical Nutrition Assessment Dietitian: Malnutrition Criteria Met Start: 01/20/24 10:16 Freq: Status: Active Protocol: Document 01/20/24 10:16 SLA (Rec: 01/20/24 10:16 SLA [email or web address]) Nutrition Malnutrition Evidence of Malnutrition Exists Yes Malnutrition (severe): Chronic Evidenced By Suboptimal Energy Intake ( Severe),Weight Loss (Severe) Clinical Problem Chronic Disease or Condition Related Malnutrition Etiology related to back issues and pain causing pt to have inadequate energy intake Signs/Symptoms as evidenced by 21.6% unintended wt loss and po intake < 75% of est nutritional needs 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 Lab / Micro Data 01/22/24 04:17 01/20/24 05:39 Labs: Laboratory Results - last 24 hr 01/17/24 10:06: Blood Type Cancelled, A1 Antigen Typing Cancelled, Rho(D) Type Cancelled, Antibody Screen Cancelled, Crossmatch See Detail 01/22/24 04:17: WBC 7.0, RBC 2.50 L, Hgb 7.2 L, Hct 22.2 L, MCV 88.8, MCH 28.8, MCHC 32.4, RDW Std Deviation 43.8, RDW Coeff of Frankie 13.5, Plt Count 216, MPV 8.5, Immature Gran % (Auto) 0.600, Neut % (Auto) 70.1 H, Lymph % (Auto) 16.2 L, [place] % (Auto) 9.7, Eos % (Auto) 3.0, Baso % (Auto) 0.4, Absolute Neuts (auto) 4.9, Absolute Lymphs (auto) 1.14, Nucleated RBC % 0 Micro: Microbiology 01/19/24 13:34 Wound - Other Gram Stain - Final 01/19/24 13:34 Wound - Other Wound Culture - Preliminary No growth-Final to follow 01/19/24 13:34 Wound - Other Anaerobic Culture - Preliminary No growth in 48 hours. 01/19/24 13:34 Wound - Other Gram Stain - Final 01/19/24 13:34 Wound - Other Wound Culture - Preliminary No growth-Final to follow 01/19/24 13:34 Wound - Other Anaerobic Culture - Preliminary No growth in 48 hours. 01/17/24 09:59 Swab (Method) Nasal Screen MRSA/MSSA - Final Physical Exam Const Constitutional Narrative: Up in bed, eating breakfast. Peers no distress. HEENT head/scalp atraumatic and moist oral mucous membranes Neuro Sensorium / Orientation: awake and alert Assessment & Plan Assessment/Plan (1) Acute blood loss anemia: PLAN: Plan Acute blood loss anemia Hemoglobin is dropped from 10.2-6.5. Patient has already been typed and crossed for 2 units. Pt transfused 1 unit on 01/20. Follow up hemoglobin 7.2, will transfuse another unit for total of 2 units. Urinary frequency Patient with known prostate issues. Does not take tamsulosin currently. Patient did have catheter for surgery and is on pain medication so I think he may have issues with urinary frequency or even possibly retention. Started on tamsulosin. Discitis Status post L4-5 posterior percutaneous pedicle screw instrumentation, prone: ? L4-5 posterior pedicle screw instrumentation On vancomycin and cefepime Management per spine surgery. Will defer to primary service if infectious disease consultation will be necessary. VTE prophylaxis: SCDs. Charges/Coding Visit Charges Inpatient E&M: 49527 [facility] Hosp L1
--- NOTE | 2024-01-22 09:00 | RAD_ITS ---
STUDY: X-RAY - LUMBAR SPINE REASON FOR EXAM: Male, 68 years old. s/p fusion -- pls do Upright AP, Lat TECHNIQUE: 2 view(s) of the lumbar spine were obtained. COMPARISON: Comparison is made with prior examination dated January 19, 2024. FINDINGS: The patient is status post laminectomy intrapedicular screw fixation and prosthetic disc the L4-L5 level. RAD/Lumbar Spine 2 or 3 Views IMPRESSION: Status post laminectomy and fusion at the L4-L5 level with prosthetic disc. Electronically Signed: Jaspreet Armstrong MD at 9:30 EDT ,
[2024-01-22] MEDS: metFORMIN HCl 500 MG Tablet PO ×2 (09:55→16:55)
[2024-01-22] MEDS: Senna/Docusate Sodium 1 Tablet 2 TABLET PO ×2 (09:56→21:01)
[2024-01-22] MEDS: Multivitamins,Therapeutic Tablet 1 TABLET PO (09:56)
[2024-01-22] MEDS: Pantoprazole Sodium 40 MG Tablet PO (09:56)
[2024-01-22] MEDS: LINACLOTIDE 72 MCG CAPSULE PO (09:57)
[2024-01-22] MEDS: DULoxetine Hcl 30 MG Capsule PO (09:57)
--- NOTE | 2024-01-22 12:34 | PN.ORTHO_ITS ---
Subjective Subjective Postop day 3 status post L4-5 anterolateral debridement with anterior posterior fusion. Saw patient in 302. Patient sitting up on recliner. Has walked and down stairs with PT. Has been passing flatus, has had bowel movement, tolerating solid diet, but low appetite. Has occasional dizziness and fatigue. Received blood transfusion yesterday. Hemoglobin up to 7.2 this morning. No growth on cultures so far. Objective Data Objective Data Vital Signs: Vital Signs Temp Pulse Resp BP Pulse Ox O2 Del Method O2 Flow Rate 98.5 F 77 18 121/60 H 98 Room Air 2 01/22/24 09:00 01/22/24 09:00 01/22/24 09:00 01/22/24 09:00 01/22/24 09:00 01/22/24 09:00 01/21/24 11:58 Oxygen Flow Rate (L/min) 2 Oxygen Delivery Method Room Air Weight: 171 lb 11.841 oz Body Mass Index (BMI) 24.6 Intake & Output: Intake and Output for Last 24 Hours 01/20/24 01/21/24 01/22/24 23:59 23:59 23:59 Intake Total 1943.58 / 1943.58 2643.08 / 2643.08 1580 / 1580 Output Total 1350 / 1350 2150 / 2150 880 / 880 Balance 593.58 / 593.58 493.08 / 493.08 700 / 700 Medical Nutrition Assessment Dietitian: Malnutrition Criteria Met Start: 01/20/24 10:16 Freq: Status: Active Protocol: Document 01/20/24 10:16 SLA (Rec: 01/20/24 10:16 SLA [id number]) Nutrition Malnutrition Evidence of Malnutrition Exists Yes Malnutrition (severe): Chronic Evidenced By Suboptimal Energy Intake ( Severe),Weight Loss (Severe) Clinical Problem Chronic Disease or Condition Related Malnutrition Etiology related to back issues and pain causing pt to have inadequate energy intake Signs/Symptoms as evidenced by 21.6% unintended wt loss and po intake < 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 Lab / Micro Data 01/22/24 04:17 01/20/24 05:39 Labs: Laboratory Results - last 24 hr 01/22/24 04:17: WBC 7.0, RBC 2.50 L, Hgb 7.2 L, Hct 22.2 L, MCV 88.8, MCH 28.8, MCHC 32.4, RDW Std Deviation 43.8, RDW Coeff of Frankie 13.5, Plt Count 216, MPV 8.5, Immature Gran % (Auto) 0.600, Neut % (Auto) 70.1 H, Lymph % (Auto) 16.2 L, [place] % (Auto) 9.7, Eos % (Auto) 3.0, Baso % (Auto) 0.4, Absolute Neuts (auto) 4.9, Absolute Lymphs (auto) 1.14, Nucleated RBC % 0 Micro: Microbiology 01/19/24 13:34 Wound - Other Gram Stain - Final 01/19/24 13:34 Wound - Other Wound Culture - Preliminary No growth-Final to follow 01/19/24 13:34 Wound - Other Anaerobic Culture - Preliminary No growth in 48 hours. 01/19/24 13:34 Wound - Other Gram Stain - Final 01/19/24 13:34 Wound - Other Wound Culture - Preliminary No growth-Final to follow 01/19/24 13:34 Wound - Other Anaerobic Culture - Preliminary No growth in 48 hours. 01/17/24 09:59 Swab (Method) Nasal Screen MRSA/MSSA - Final Radiography Diagnostic Testing: Radiology Impression Lumbar Spine X-Ray 01/22/24 09:00 IMPRESSION: Status post laminectomy and fusion at the L4-L5 level with prosthetic disc. Electronically Signed: Jaspreet Armstrong MD at 9:30 EDT , Physical Exam Narrative Dressing?CDI. Neurologic evaluation of lower extremity shows 5 out of 5 power normal shows normal sensations in all dermatomes. Assessment & Plan Assessment/Plan (1) Status post lumbar spinal fusion: (2) Osteomyelitis of lumbar spine: PLAN: Plan Postop day 3 status post L4-5 fusion for osteomyelitis. Patient doing well overall. Pain well-controlled. PT cleared. Tolerating solid diet. X-rays done today, reviewed, look appropriate. Appreciate hospitalist comanagement. Needs ID consult for antibiotic plan. Can be discharged once patient has PICC line and antibiotic plan per ID.
--- NOTE | 2024-01-22 14:23 | CON.PCM.ID_ITS ---
Assessment & Plan Assessment/Plan (1) Osteomyelitis of lumbar spine: PLAN: Taken to OR 01/19/[address] Bradshaw and Dr. Godoy for I&D and L4-5 cage placement. Surg cx neg so far. Biopsy cx with GPR seen on gram stain. Will request micro lab hold for 2 weeks. Will order picc, cont iv vanc/cefepime for planned 6 weeks, stop date 03/01/24 with weekly labs, ID followup in 2 weeks. Will follow, thank you, d/w Dr. Bradshaw and case management assistant HPI Consult Data Date of Consult: 01/22/24 HPI Narrative Reason for Consultation: osteo HPI Narrative: JARET FIGUEROA, is a 68 M who had lumbar laminectomy and discectomy L4-5 on 07/18/[address] Godoy here. After that, developed progressive pain, new fever and confusion. MRI showed suspected discitis/osteo. 10/25/23 had aspiration of disc/bone with orosco culture sent. No organism seen on gram stain, cxs finalized as neg. Discharged with picc, 6 weeks iv vanc/ceftriaxone with stop date 12/03/23. By mid December 2023, new progressive fever and severe back pain. Biopsy done as outpt, showed purulence, abx were held until taken to OR 01/19/[address] Bradshaw and Dr. Godoy for debridement and placement L4-5 cage. Feeling better today, was able to get up some. No fever, no n/v/d. Full ROS performed and neg except as noted above. [facility] Medical History Bilirubinuria Contact with or exposure to other viral diseases Lumbosacral radiculopathy at L5 History of steroid therapy Smokeless tobacco use Tension headache Agent orange exposure Bilateral primary osteoarthritis of knee Wears hearing aid Cancer Alcohol use Diabetes Ambulates with cane Arthritis Prostate disease High cholesterol (~08/21/23) Restless legs Back pain Injury of head and neck Syncope History of IBS Shortness of breath on exertion History of pain when walking History of echocardiogram History of stress test Cardiology follow-up encounter Tear of medial meniscus of right knee Fibromyalgia BPH w urinary obs/LUTS Left knee DJD Right knee DJD Fusion of spine, cervical region Chondromalacia, right knee Chondromalacia, left knee Chondromalacia of both patellae COVID-19 virus detected (11/19/20) Nonrheumatic aortic (valve) stenosis with insufficiency Opioid dependence Obesity Asthma Hyperlipemia Essential (primary) hypertension Atherosclerotic heart disease of [place] coronary artery without angina pectoris Type 2 diabetes mellitus Spondylosis of lumbosacral region without myelopathy or radiculopathy Spinal stenosis of lumbosacral region Radiculopathy of lumbosacral region Degeneration of intervertebral disc of lumbosacral region Arthropathy of cervical facet joint Degeneration of cervical disc without myelopathy Cervical spondylosis Home Medications ?Medication ?Instructions ?Recorded ?Last Taken ?Type aspirin 81 mg tablet,delayed 81 mg PO DAILY HEART HEALTH 12/23/15 12/28/23 History release multivitamin 1 tab PO DAILY supplement 07/09/19 01/18/24 History albuterol sulfate 90 mcg/actuation 1 - 2 puff inhalation Q4H PRN PRN 04/21/22 Unknown Rx aerosol inhaler Wheezing #8.5 grams handicap placard #1 ea 04/21/22 Unknown Rx blood sugar diagnostic (FreeStyle #100 ea 09/15/22 Unknown Rx Lite Strips) blood-glucose meter (FreeStyle #1 ea 09/15/22 Unknown Rx Lite Meter kit) fluticasone propionate 50 1 - 2 spray intranasal BID PRN 04/27/23 01/18/24 Rx mcg/actuation nasal allergies, congestion #16 grams spray,suspension atorvastatin 40 mg tablet 40 mg PO QHS CHOLESTEROL #90 tabs 08/21/23 01/18/24 Rx trazodone 50 mg tablet 50 - 100 mg (1 - 2 x 50 mg) PO QHS 08/21/23 01/18/24 Rx sleep #90 tabs metformin 500 mg tablet 500 mg PO BID DIABETIC 1 month #60 12/12/23 01/18/24 Rx tabs linaclotide 72 mcg capsule 72 mcg PO DAILY irritable colon 01/02/24 01/18/24 History (Linzess) acetaminophen 500 mg tablet 1,000 mg (2 x 500 mg) PO Q8 PAIN 01/03/24 Unknown Rx #0 tabs duloxetine 30 mg capsule,delayed 30 mg PO DAILY ANXIETY #30 caps 01/03/24 01/18/24 Rx release gabapentin 400 mg capsule 400 mg PO TID PAIN #90 caps 01/03/24 01/19/24 Rx pantoprazole 40 mg tablet,delayed 40 mg PO DAILY GERD #30 tabs 01/03/24 01/19/24 Rx release baclofen 5 mg tablet 5 mg PO BID PAIN 01/16/24 01/18/24 History oxycodone-acetaminophen 7.5 mg-325 1 tab PO BID PAIN 01/16/24 01/19/24 History mg tablet cefepime 2 gram solution for 2 g IV Q8 39 days #117 ea 01/22/24 Unknown Rx injection vancomycin 1.5 gram intravenous 1.5 g IV Q12H 39 days 01/22/24 Unknown Rx solution Allergy/AdvReac Type Severity Reaction Status Date / Time adhesive tape Allergy Rash Verified 01/16/24 15:28 sertraline (From Zoloft) AdvReac Unknown Verified 01/16/24 15:28 Family History Brother Heart disease Myocardial infarction 60's CAD (coronary artery disease) Father Myocardial infarction 65 CAD (coronary artery disease) Mother HLD (hyperlipidemia) when son was 16 following MVA, healthy aside HLD. Surgical History Hx of laminectomy S/P laminectomy Status post discectomy for herniated nucleus pulposus History of lateral meniscus repair of right knee (~2021) Hx laparoscopic cholecystectomy (~11/2022) Hx of bilateral cataract extraction H/O cervical spine surgery (08/2020) History of herniorrhaphy History of carpal tunnel release History of back surgery History of left heart catheterization (09/09/11) H/O coronary artery bypass surgery (09/14/11) Social History household members: spouse Smoking Status: Former smoker Smokeless tobacco user: chewing tobacco alcohol intake: current alcohol intake frequency: a few times a month substance use type: does not use caffeine: Yes Type: coffee Number of servings: 2 Physical Exam Const alert, oriented x3 and no apparent distress General Appearance: cooperative HEENT normocephalic and head/scalp atraumatic Eyes PERRL and EOMs intact bilaterally Neck supple and No nodes Resp normal air movement and clear to auscultation bilaterally Cardio regular rate and regular rhythm GI soft to palpation, non-tender and non-distended Extremity General Extremity: Negative for edema Skin no rashes or lesions noted Neuro CN's II-XII intact bilaterally Medical Records Data Medical Nutrition Assessment Dietitian: Malnutrition Criteria Met Start: 01/20/24 10:16 Freq: Status: Active Protocol: Document 01/20/24 10:16 SLA (Rec: 01/20/24 10:16 SLA [email or web address]) Nutrition Malnutrition Evidence of Malnutrition Exists Yes Malnutrition (severe): Chronic Evidenced By Suboptimal Energy Intake ( Severe),Weight Loss (Severe) Clinical Problem Chronic Disease or Condition Related Malnutrition Etiology related to back issues and pain causing pt to have inadequate energy intake Signs/Symptoms as evidenced by 21.6% unintended wt loss and po intake < 75% of est nutritional needs 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 Lab / Micro Data Attestation: I reviewed the patient's lab results. 01/22/24 04:17 01/20/24 05:39 Labs: Laboratory Results - last 24 hr 01/22/24 04:17: WBC 7.0, RBC 2.50 L, Hgb 7.2 L, Hct 22.2 L, MCV 88.8, MCH 28.8, MCHC 32.4, RDW Std Deviation 43.8, RDW Coeff of Frankie 13.5, Plt Count 216, MPV 8.5, Immature Gran % (Auto) 0.600, Neut % (Auto) 70.1 H, Lymph % (Auto) 16.2 L, [place] % (Auto) 9.7, Eos % (Auto) 3.0, Baso % (Auto) 0.4, Absolute Neuts (auto) 4.9, Absolute Lymphs (auto) 1.14, Nucleated RBC % 0 Micro: Microbiology 01/19/24 13:34 Wound - Other Gram Stain - Final 01/19/24 13:34 Wound - Other Wound Culture - Preliminary No growth-Final to follow 01/19/24 13:34 Wound - Other Anaerobic Culture - Preliminary No growth in 48 hours. 01/19/24 13:34 Wound - Other Gram Stain - Final 01/19/24 13:34 Wound - Other Wound Culture - Preliminary No growth-Final to follow 01/19/24 13:34 Wound - Other Anaerobic Culture - Preliminary No growth in 48 hours. Imaging Radiology Impression Lumbar Spine X-Ray 01/22/24 09:00 IMPRESSION: Status post laminectomy and fusion at the L4-L5 level with prosthetic disc. Electronically Signed: Jaspreet Armstrong MD at 9:30 EDT ,
--- NOTE | 2024-01-22 14:51 | CASEMGMT ---
Addendum entered by Funmi Kang 01/22/24 16:02: Cristy from [facility] called and stated previously had pt and he was not compliant with waiting to take his vanc before blood drawls so he could go fishing. Stated they are willing to take pt back if we provide pt education and confirm he is willing to be compliant. MATIAS SAUER into pt room, pt lying in bed in no distress. Pt stated he is not able to get out and about at this time and he will be compliant with medications and [facility] services. Received notification from [facility], unable to have med ready before tomorrow afternoon. Notified [facility]. Original Note: MATIAS SAUER TC to [facility] to see if they are able to accept pt and start with IV antibiotics tomorrow morning or Monday morning. Sent referral via careport to [facility].
--- NOTE | 2024-01-22 15:28 | PRO.PCM_ITS ---
Procedure Report Date of Procedure: 01/22/24 Assessment & Plan Assessment/Plan (1) Osteomyelitis of lumbar spine: Procedures Radiology Radiology Access Procedures: PICC Procedure Time Out Time Out Informed consent given: Yes Consent signed: Yes Time out checklist: patient, procedure, site marked/identified, positioning of patient, supplies available and allergies confirmed Time out staff in room: Yes Time out verified: Yes Time out date: 01/22/24 Time out time: 14:31 PICC Line Consent Screening tool completed:: Yes Consent obtained:: Yes Consent given by (patient or responsible libertarian):: PATIENT Line successful (if no, document why in comments):: Yes Insertion Reason for Insertion: Residential Medication Date of Insertion: 01/22/24 Ok to use: Yes Type of PICC inserted: Dual Power PICC PICC Lot #: [id number] PICC Reference #: [id number] Microintroducer Used: Yes (in kit) Ultrasound/Equipment Used: Probe Cover Kit Trimmed Length (cm): 46 Insertion Length (cm): 46 Exposed Length (cm): 0 Tip Placement: Caval Atrial Junction Placement Confirmation: 3CG Insertion Vein: Right Basilic Insertion Attempts: 1 Local Anesthesia Used: Lidocaine 1% (in kit) Dressing Applied: Statlock and Tegaderm CHG Arm Measurement above site (in cm): 46 Patient Tolerated Procedure: Well Threading Difficulties: No Comments Comment: Patient identity was verified with two patient identifiers. Informed consent was obtained and time-out was completed. Hands were sanitized. The patient was positioned supine with right arm at 90 degrees. The patient's upper arm vasculature was assessed using ultrasound. Patency of the right basilic vein was confirmed and the vein was externally marked. An external measurement was obtained of 46 cm. External leads were applied to the patient's right upper chest and laterally and inferior of the umbilicus on the mid axillary line. Cap, mask, and prep gloves were donned. The underdrape was placed under the patient's arm. The site was prepped with chlorhexidine, and tourniquet was loosely applied. Prep gloves were discarded, and hands were sanitized. The sterile kit was opened with additional supplies dropped in. Sterile gown and gloves were donned, and the patient was draped. The sterile kit was assembled with needle, introducer, needless connector, and catheter lumen flushed with sterile normal saline. The marked site of insertion was anesthetized with 1% lidocaine from the kit. Patient tolerated well. The right basilic vein vein was then accessed using ultrasound guidance and guidewire was inserted to safety ben. The tourniquet was released. The access needle was removed while securing the guidewire in place. The site was again anesthetized with 1% lidocaine, prior to insertion of introducer sheath and dilator. Patient tolerated the insertion well. The catheter was trimmed to a length of 46 cm. Using 3C guidance, the catheter was then inserted through the introducer sheath, slowly. There was no resistance on insertion. The catheter followed the expected course of the vessel using 3CG tracking. The introducer sheath was retracted and peeled away, incrementally, while keeping the catheter secured. Maximal p-wave, without deflection, confirming placement in the cavoatrial junction, was obtained at an insertion length of 46 cm, leaving 0 cm external. The stylet was removed. A flushed needleless connector was attached to the lumen. Aspiration of the lumen was performed to remove any air and confirm blood return. Blood return was verified and the lumen was flushed with 10 ml of sterile normal saline in a pulsatile fashion. The lumen was clamped with the last pulsed flush. Total sterile flushes used for the insertion was 5 10 ml syringes, 1 from the kit. Finally, the insertion site was cleaned with chlorhexidine, and the catheter was secured using a StatLock. The site was covered with a Tegaderm CHG Dressing and disinfecting caps were applied. Baseline arm circumference was obtained at the insertion site and measured 26 cm. The patient was provided with a patient education handout on PICC line care of infection prevention, heavy lifting restriction, maintaining mobility, and watching for any signs of infection. The primary nurse and charge nurse are aware that the PICC line is ready for use.
--- NOTE | 2024-01-22 15:44 | PCM.RX.CS ---
Consult Antibiotic Management Pharmacy has been consulted to manage selected antibiotic: Vancomycin Type of Intervention Type of Consult: Follow-up Labs Labs: Sodium 136 mmol/L (136-145) 01/20/24 05:39 Potassium 4.1 mmol/L (3.5-5.1) 01/20/24 05:39 Chloride 102 mmol/L (98-107) 01/20/24 05:39 Carbon Dioxide 31.0 mmol/L (21.0-32.0) 01/20/24 05:39 Anion Gap 3 (5-15) L 01/20/24 05:39 BUN 19 mg/dL (7-18) H 01/20/24 05:39 Creatinine 1.04 mg/dL (0.70-1.30) 01/20/24 05:39 Est GFR (MDRD) Af Amer 91 mL/min (>60) 01/20/24 05:39 Est GFR (MDRD) Non-Af 75 mL/min (>60) 01/20/24 05:39 BUN/Creatinine Ratio 18.3 RATIO (10-20) 01/20/24 05:39 Glucose 150 mg/dL (74-106) H 01/20/24 05:39 Vancomycin Trough 22.0 ug/mL (5.0-15.0) H 01/22/24 14:00 Microbiology Microbiology: Microbiology 01/19/24 13:34 Wound - Other Gram Stain - Final 01/19/24 13:34 Wound - Other Wound Culture - Preliminary No growth-Final to follow 01/19/24 13:34 Wound - Other Anaerobic Culture - Preliminary No growth in 48 hours. 01/19/24 13:34 Wound - Other Gram Stain - Final 01/19/24 13:34 Wound - Other Wound Culture - Preliminary No growth-Final to follow 01/19/24 13:34 Wound - Other Anaerobic Culture - Preliminary No growth in 48 hours. 01/17/24 09:59 Swab (Method) Nasal Screen MRSA/MSSA - Final Goal Trough Goal Trough: 15-20 mcg/mL Pharmacy Plan for Drug Dosing Pharmacy Plan for Drug Dosing: VANCOMYCIN LEVEL RECEIVED Current Vancomycin Dose: 1500mg IV Q12hr Number of Doses Received: 3 (of current regimen) Vancomycin Level: 22 Hours Since Last Dose: 11.5hr Renal Function: 1.04 Renal Function Trend: stable Lab/Micro: cultures pending Vancomycin Plan/Comments: Patient had a trough drawn which resulted in a value of 22 (goal 15-20). Patient's level was supratherapeutic. Will hold further doses of vancomycin until trough is less than 20. Will redraw a trough in 12 hours, as trough will likely be <20 at that time. Pending Level: *RANDOM* level 01/23/24 @0200 Pharmacy Service will continue to monitor and adjust dosing as required.
--- NOTE | 2024-01-22 16:07 | CASEMGMT ---
IV antibiotics orders faxed to [facility]. Plan for start of care Monday.
[2024-01-22] MEDS: Tamsulosin HCl 0.4 MG Capsule PO (16:55)
[2024-01-22] MEDS: traZODone 50 MG Tablet PO (21:00)
[2024-01-22] MEDS: Atorvastatin Calcium 40 MG Tablet PO (21:01)
[2024-01-23 02:33] LABS: Vancomycin, Random Level 16.5 ug/mL (0.0-15.0)
--- NOTE | 2024-01-23 02:40 | PCM.RX.CS ---
Consult Antibiotic Management Pharmacy has been consulted to manage selected antibiotic: Vancomycin Type of Intervention Type of Consult: Follow-up Suspected Infection Suspected Infection: Osteomyelitis Labs Labs: Sodium 136 mmol/L (136-145) 01/20/24 05:39 Potassium 4.1 mmol/L (3.5-5.1) 01/20/24 05:39 Chloride 102 mmol/L (98-107) 01/20/24 05:39 Carbon Dioxide 31.0 mmol/L (21.0-32.0) 01/20/24 05:39 Anion Gap 3 (5-15) L 01/20/24 05:39 BUN 19 mg/dL (7-18) H 01/20/24 05:39 Creatinine 1.04 mg/dL (0.70-1.30) 01/20/24 05:39 Est GFR (MDRD) Af Amer 91 mL/min (>60) 01/20/24 05:39 Est GFR (MDRD) Non-Af 75 mL/min (>60) 01/20/24 05:39 BUN/Creatinine Ratio 18.3 RATIO (10-20) 01/20/24 05:39 Glucose 150 mg/dL (74-106) H 01/20/24 05:39 Vancomycin Trough 22.0 ug/mL (5.0-15.0) H 01/22/24 14:00 Random Vancomycin 16.5 ug/mL (0.0-15.0) H 01/23/24 02:02 Microbiology Microbiology: Microbiology 01/19/24 13:34 Wound - Other Gram Stain - Final 01/19/24 13:34 Wound - Other Wound Culture - Preliminary No growth-Final to follow 01/19/24 13:34 Wound - Other Anaerobic Culture - Preliminary No growth in 48 hours. 01/19/24 13:34 Wound - Other Gram Stain - Final 01/19/24 13:34 Wound - Other Wound Culture - Preliminary No growth-Final to follow 01/19/24 13:34 Wound - Other Anaerobic Culture - Preliminary No growth in 48 hours. 01/17/24 09:59 Swab (Method) Nasal Screen MRSA/MSSA - Final Dosing Weight Weight used for dosin kg Estimated Creatinine Clearance Estimated Creatinine Clearance: 68 Goal Trough Goal Trough: 15-20 mcg/mL Pharmacy Plan for Drug Dosing Pharmacy Plan for Drug Dosing: Vancomycin level has fallen to below 20mcg/ml (@16.5), so will re-start dosing at 1000mg q12h. A trough vanco level will be drawn prior to the fourth dose of the new regimen. Pharmacy Service will continue to monitor and adjust dosing as required. Follow-Up Labs Follow-Up Labs: Trough: Vancomycin Date/Time Labs Ordered Labs to be done on [date and time ordered]: 01/24/24 @1430
[2024-01-23] MEDS: Vancomycin IV 1,000 MG/200 ML BAG 200 MG IV ×2 (03:17→14:13)
[2024-01-23 03:21] VITALS: BP 134/85; PULSE 84; RESP 16; TEMP 36.7; O2SAT 98
[2024-01-23] MEDS: Cefepime HCl 2 GM in 0.9% Normal Saline (100mL MB+) 100 ML IV ×2 (05:16→13:14)
[2024-01-23] MEDS: oxyCODONE 5 MG Tablet PO ×2 (05:16→09:07)
[2024-01-23] MEDS: Gabapentin 400 MG Capsule PO ×2 (05:17→14:13)
[2024-01-23] MEDS: Methocarbamol 500 MG Tablet 1000 MG PO ×2 (05:17→11:39)
[2024-01-23] MEDS: Acetaminophen 500 MG Tablet 1000 MG PO ×2 (05:17→14:14)
[2024-01-23 06:02] LABS: Absolute Neutrophil Count 4.6 X10^3/uL (2.0-7.7); Basophil# 0.03 X10^3/uL; Basophil% 0.5 % (0-1); Eosinophil# 0.24 X10^3/uL; Eosinophils% 3.7 % (0-5); Hematocrit 25.6 % (40-54); Hemoglobin 8.3 g/dL (13.0-16.5); Lymphocyte % 13.9 % (19-41); Mean Corp Hgb Conc 32.4 g/dL (32-36); Mean Corpuscular Hgb 28.4 pg (27.0-32.0); Mean Corpuscular Volume 87.7 fL (80-94); Mean Platelet Vol. 8.4 fl (6.2-12.0); Monocyte# 0.64 X10^3/uL; Monocyte% 9.9 % (0-10); NRBC Flagged by Analyzer 0 % (0-5); Neutrophil # 4.63 X10^3/uL (2.7-7.7); Neutrophil % 71.7 % (47-70); Platelet Count 257 K/mm3 (150-450); RBC Distribution Width CV 13.4 % (11.6-14.6); RBC Distribution Width SD 42.6 fl (35.1-43.9); Red Blood Count 2.92 M/mm3 (4.6-6.2); White Blood Count 6.5 K/mm3 (4.4-11.0)
[2024-01-23 08:00] VITALS: RESP 18
--- NOTE | 2024-01-23 09:07 | PCM.PN.HOSP ---
Reason for Visit Reason for Visit: Diagnoses Acute posthemorrhagic anemia (01/19/24) Other secondary scoliosis, lumbar region (01/19/24) Osteomyelitis of vertebra, lumbar region (01/19/24) Discitis, unspecified, lumbar region (01/19/24) Encounter for other preprocedural examination (01/19/24) Arthrodesis status (01/19/24) Subjective Subjective Still with back pain. Worse when he lays on his back, better when he is on his sides. Objective Data Objective Data Vital Signs: Vital Signs Temp Pulse Resp BP Pulse Ox O2 Del Method O2 Flow Rate 36.7 C 84 16 134/85 H 98 Room Air 2 01/23/24 03:21 01/23/24 03:21 01/23/24 03:21 01/23/24 03:21 01/23/24 03:21 01/23/24 03:21 01/21/24 11:58 Oxygen Flow Rate (L/min) 2 Oxygen Delivery Method Room Air Weight: 77.9 kg Body Mass Index (BMI) 24.6 Intake & Output: Intake and Output for Last 24 Hours 01/21/24 01/22/24 01/23/24 23:59 23:59 23:59 Intake Total 2643.08 / 2643.08 2630 / 2930 900 / 900 Output Total 2150 / 2150 1180 / 1455 1575 / 1575 Balance 493.08 / 493.08 1450 / 1475 -675 / -675 Medical Nutrition Assessment Dietitian: Malnutrition Criteria Met Start: 01/20/24 10:16 Freq: Status: Active Protocol: Document 01/20/24 10:16 SLA (Rec: 01/20/24 10:16 SLA [id number]) Nutrition Malnutrition Evidence of Malnutrition Exists Yes Malnutrition (severe): Chronic Evidenced By Suboptimal Energy Intake ( Severe),Weight Loss (Severe) Clinical Problem Chronic Disease or Condition Related Malnutrition Etiology related to back issues and pain causing pt to have inadequate energy intake Signs/Symptoms as evidenced by 21.6% unintended wt loss and 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 Lab / Micro Data 01/23/24 05:09 01/20/24 05:39 Labs: Laboratory Results - last 24 hr 01/17/24 10:06: Crossmatch See Detail 01/22/24 14:00: Vancomycin Trough 22.0 H 01/22/24 17:19: Blood Type O POSITIVE, Antibody Screen NEGATIVE, Crossmatch See Detail 01/23/24 02:02: Random Vancomycin 16.5 H 01/23/24 05:09: WBC 6.5, RBC 2.92 L, Hgb 8.3 L, Hct 25.6 L, MCV 87.7, MCH 28.4, MCHC 32.4, RDW Std Deviation 42.6, RDW Coeff of Frankie 13.4, Plt Count 257, MPV 8.4, Immature Gran % (Auto) 0.300, Neut % (Auto) 71.7 H, Lymph % (Auto) 13.9 L, Sullivan % (Auto) 9.9, Eos % (Auto) 3.7, Baso % (Auto) 0.5, Absolute Neuts (auto) 4.6, Absolute Lymphs (auto) 0.90, Nucleated RBC % 0 Micro: Microbiology 01/19/24 12:40 Blood Culture (Wb) - Left Hand Blood Culture - Preliminary No growth in 48 hours. 01/19/24 13:34 Wound - Other Gram Stain - Final 01/19/24 13:34 Wound - Other Wound Culture - Preliminary No growth-Final to follow 01/19/24 13:34 Wound - Other Anaerobic Culture - Preliminary No growth in 48 hours. 01/19/24 13:34 Wound - Other Gram Stain - Final 01/19/24 13:34 Wound - Other Wound Culture - Preliminary No growth-Final to follow 01/19/24 13:34 Wound - Other Anaerobic Culture - Preliminary No growth in 48 hours. 01/17/24 09:59 Swab (Method) Nasal Screen MRSA/MSSA - Final Radiography Diagnostic Testing: Radiology Impression Lumbar Spine X-Ray 01/22/24 09:00 IMPRESSION: Status post laminectomy and fusion at the L4-L5 level with prosthetic disc. Electronically Signed: Jaspreet Armstrong MD at 9:30 EDT , Physical Exam Const Constitutional Narrative: lying in bed on his left side. HEENT head/scalp atraumatic and moist oral mucous membranes Resp normal respiratory effort and no retractions Assessment & Plan Assessment/Plan (1) Acute blood loss anemia: PLAN: Plan Acute blood loss anemia Hemoglobin is dropped from 10.2-6.5. Patient has already been typed and crossed for 2 units. Pt transfused 2 units and improved to 8.3. Discharge with ferrous sulfate (Rx done) Urinary frequency Patient with known prostate issues. Does not take tamsulosin currently. Patient did have catheter for surgery and is on pain medication so I think he may have issues with urinary frequency or even possibly retention. Started on tamsulosin (Rx done) Follow up with PRN Discitis Status post L4-5 posterior percutaneous pedicle screw instrumentation, prone: ? L4-5 posterior pedicle screw instrumentation On vancomycin and cefepime. ID folloowing. Recommending 6-weeks of IV treatment. Follow up with ID in 2 weeks. Management per spine surgery. Will defer to primary service if infectious disease consultation will be necessary. VTE prophylaxis: SCDs. Medically stable for discharge. Will sign off. Please call with questions/concerns. Charges/Coding Visit Charges Inpatient E&M: 38[address] [facility] Hosp L1
[2024-01-23] MEDS: metFORMIN HCl 500 MG Tablet PO (09:08)
[2024-01-23] MEDS: Senna/Docusate Sodium 1 Tablet 2 TABLET PO (09:08)
[2024-01-23] MEDS: LINACLOTIDE 72 MCG CAPSULE PO (09:08)
[2024-01-23] MEDS: DULoxetine Hcl 30 MG Capsule PO (09:08)
[2024-01-23] MEDS: Multivitamins,Therapeutic Tablet 1 TABLET PO (09:09)
[2024-01-23] MEDS: Pantoprazole Sodium 40 MG Tablet PO (09:09)
[2024-01-23 09:21] VITALS: BP 131/75; PULSE 73; RESP 16; TEMP 36.3; O2SAT 98
--- NOTE | 2024-01-23 11:17 | CASEMGMT ---
Addendum entered by Natalie Roque 01/23/24 14:10: Final ortho note sent to I via careport at this time. Addendum entered by Natalie Roque 01/23/24 12:22: RN CRISTIANE received notification that pt cost will be $88/wk. RN CM into pt room, pt at bedside. Pt aware of cost of medication. Pt is aware that HHC will start tomorrow. Reinforced importance of the timing of antibiotics and blood draws. Pt verbalized understanding. Pt and deny further needs and is aware he will dc after afternoon antibiotic doses. Spoke with pt nurse regarding this as well. Original Note: Spoke with ID who states ok to miss dose of medications d/t HHC starting tomorrow morning. [facility], spoke with Catrina, she is aware pt will dc today. They will start tomorrow morning.
--- NOTE | 2024-01-23 14:04 | PN.ORTHO_ITS ---
Subjective Subjective Postop day 4 status post L4-5 anterolateral debridement with anterior posterior fusion. Saw patient in 302. Patient sitting up on recliner. Has walked and down stairs with PT. Has been passing flatus, has had bowel movement, tolerating solid diet, but low appetite. Has occasional dizziness and fatigue. Received blood transfusion. Hemoglobin up to 8.3 this morning. No growth on cultures so far. Objective Data Objective Data Vital Signs: Vital Signs Temp Pulse Resp BP Pulse Ox O2 Del Method O2 Flow Rate 97.3 F L 73 16 131/75 H 98 Room Air 2 01/23/24 09:21 01/23/24 09:21 01/23/24 09:21 01/23/24 09:21 01/23/24 09:21 01/23/24 09:21 01/21/24 11:58 Oxygen Flow Rate (L/min) 2 Oxygen Delivery Method Room Air Weight: 171 lb 11.841 oz Body Mass Index (BMI) 24.6 Intake & Output: Intake and Output for Last 24 Hours 01/21/24 01/22/24 01/23/24 23:59 23:59 23:59 Intake Total 2643.08 / 2643.08 2630 / 2930 900 / 900 Output Total 2150 / 2150 1180 / 1455 1575 / 1575 Balance 493.08 / 493.08 1450 / 1475 -675 / -675 Medical Nutrition Assessment Dietitian: Malnutrition Criteria Met Start: 01/20/24 10:16 Freq: Status: Active Protocol: Document 01/20/24 10:16 SLA (Rec: 01/20/24 10:16 SLA [email or web address]) Nutrition Malnutrition Evidence of Malnutrition Exists Yes Malnutrition (severe): Chronic Evidenced By Suboptimal Energy Intake ( Severe),Weight Loss (Severe) Clinical Problem Chronic Disease or Condition Related Malnutrition Etiology related to back issues and pain causing pt to have inadequate energy intake Signs/Symptoms as evidenced by 21.6% unintended wt loss and po intake < 75% of est nutritional needs x 6 mo [employer] Status Active Problem Recommendation Dietitian Recommendations/Changes As medically able, rec RAE to liberal regular d/t signs and symptoms of malnutrition As medically able, change ensure surgery to chocolate Glucerna shake w/ meals for increased nutrition if consumed. Lab / Micro Data 01/23/24 05:09 01/20/24 05:39 Labs: Laboratory Results - last 24 hr 01/17/24 10:06: Crossmatch See Detail 01/22/24 14:00: Vancomycin Trough 22.0 H 01/22/24 17:19: Blood Type O POSITIVE, Antibody Screen NEGATIVE, Crossmatch See Detail 01/23/24 02:02: Random Vancomycin 16.5 H 01/23/24 05:09: WBC 6.5, RBC 2.92 L, Hgb 8.3 L, Hct 25.6 L, MCV 87.7, MCH 28.4, MCHC 32.4, RDW Std Deviation 42.6, RDW Coeff of Frankie 13.4, Plt Count 257, MPV 8.4, Immature Gran % (Auto) 0.300, Neut % (Auto) 71.7 H, Lymph % (Auto) 13.9 L, Garden % (Auto) 9.9, Eos % (Auto) 3.7, Baso % (Auto) 0.5, Absolute Neuts (auto) 4.6, Absolute Lymphs (auto) 0.90, Nucleated RBC % 0 Micro: Microbiology 01/19/24 12:40 Blood Culture (Wb) - Left Hand Blood Culture - Preliminary No growth in 48 hours. 01/19/24 13:34 Wound - Other Gram Stain - Final 01/19/24 13:34 Wound - Other Wound Culture - Preliminary No growth-Final to follow 01/19/24 13:34 Wound - Other Anaerobic Culture - Preliminary No growth in 48 hours. 01/19/24 13:34 Wound - Other Gram Stain - Final 01/19/24 13:34 Wound - Other Wound Culture - Preliminary No growth-Final to follow 01/19/24 13:34 Wound - Other Anaerobic Culture - Preliminary No growth in 48 hours. 01/17/24 09:59 Swab (Method) Nasal Screen MRSA/MSSA - Final Physical Exam Narrative Dressing?CDI. Neurologic evaluation of lower extremity shows 5 out of 5 power normal shows normal sensations in all dermatomes. Assessment & Plan Assessment/Plan (1) Status post lumbar spinal fusion: (2) Osteomyelitis of lumbar spine: PLAN: Plan Postop day 4 status post L4-5 fusion for osteomyelitis. Patient doing well overall. Pain well-controlled. PT cleared. Tolerating solid diet. X-rays done today, reviewed, look appropriate. Received PICC line. Plan to discharge on IV antibiotics. Follow-up in Ortho clinic in 2 weeks. No lifting bending twisting.
--- NOTE | 2024-01-23 15:11 | PHA.DC.MR.R ---
Pharmacy CT Med Reconciliation Pharmacy Service has performed discharge medication reconciliation for this patient. Unable to education counselor, medications reviewed. The patient's discharge medication list was reviewed for discrepancies and discrepancies were resolved. Medications at Discharge Home Medications aspirin 81 mg tablet,delayed release 81 mg PO DAILY HEART HEALTH 12/23/15 multivitamin 1 tab PO DAILY supplement 07/09/19 albuterol sulfate 90 mcg/actuation aerosol inhaler 1 - 2 puff inhalation Q4H PRN PRN Wheezing #8.5 grams 04/21/22 handicap placard #1 ea 04/21/22 blood sugar diagnostic (FreeStyle Lite Strips) #100 ea 09/15/22 blood-glucose meter (FreeStyle Lite Meter kit) #1 ea 09/15/22 fluticasone propionate 50 mcg/actuation nasal spray,suspension 1 - 2 spray intranasal BID PRN allergies, congestion #16 grams 04/27/23 atorvastatin 40 mg tablet 40 mg PO QHS CHOLESTEROL #90 tabs 08/21/23 trazodone 50 mg tablet 50 - 100 mg (1 - 2 x 50 mg) PO QHS sleep #90 tabs 08/21/23 metformin 500 mg tablet 500 mg PO BID DIABETIC 1 month #60 tabs 12/12/23 linaclotide 72 mcg capsule (Linzess) 72 mcg PO DAILY irritable colon 01/02/24 acetaminophen 500 mg tablet 1,000 mg (2 x 500 mg) PO Q8 PAIN #0 tabs 01/03/24 duloxetine 30 mg capsule,delayed release 30 mg PO DAILY ANXIETY #30 caps 01/03/24 gabapentin 400 mg capsule 400 mg PO TID PAIN #90 caps 01/03/24 pantoprazole 40 mg tablet,delayed release 40 mg PO DAILY GERD #30 tabs 01/03/24 baclofen 5 mg tablet 5 mg PO BID PAIN 01/16/24 cefepime 2 gram solution for injection 2 g IV Q8 39 days #117 ea 01/22/24 vancomycin 1.5 gram intravenous solution 1.5 g IV Q12H 39 days 01/22/24 ferrous sulfate 325 mg (65 mg iron) tablet 325 mg PO QODAY #14 tabs 01/23/24 oxycodone 5 mg tablet 2.5 - 5 mg (0.5 - 1 x 5 mg) PO Q6H PRN pain 10 days #40 tabs 01/23/24 sennosides 8.6 mg-docusate sodium 50 mg tablet (Stool Softener-Stimulant Laxative) 2 tab PO BID PRN constipation 10 days #40 tabs 01/23/24 tamsulosin 0.4 mg capsule 0.4 mg PO DAILY@3300 #30 caps 01/23/24
[2024-01-23 15:40] VITALS: BP 137/75; PULSE 75; RESP 16; TEMP 36.9; O2SAT 96
== END 2024-01-23 15:38 | disposition home or self-care (01) | DRG 456 ==
LOC: ACINP 08:31 → MS3 16:52
PROVIDERS: Anesthesiology; Internal Medicine; Orthopaedic Surgery; Admitting Provider Orthopaedic Surgery Orthopaedic Surgery of the Spine; PCP Internal Medicine; Visit Provider Orthopaedic Surgery Orthopaedic Surgery of the Spine
DX: M46.26 Osteomyelitis of vertebra, lumbar region (principal); E43 Unspecified severe protein-calorie malnutrition; D62 Acute posthemorrhagic anemia; M41.86 Other forms of scoliosis, lumbar region; E11.9 Type 2 diabetes mellitus without complications; I10 Essential (primary) hypertension; I25.10 Atherosclerotic heart disease of native coronary artery without angina pectoris; M48.00 Spinal stenosis, site unspecified; E78.5 Hyperlipidemia, unspecified; M79.7 Fibromyalgia; Z86.16 Personal history of COVID-19; Z79.84 Long term (current) use of oral hypoglycemic drugs; Z87.891 Personal history of nicotine dependence; Z68.24 Body mass index [BMI] 24.0-24.9, adult; R35.0 Frequency of micturition
CPT/HCPCS: 36415; 36569; 72100; 76000; 80048; 80202; 82962; 83735; 85014; 85018; 85025; 85027; 85652; 86140; 86644; 86703; 86706; 86708; 86803; 86850; 86900; 86901; 86920; 86922; 87015; 87040; 87070; 87075; 87081; 87102; 87116; 87205; 87206; 94668; 97162; 97166; 97530; 97535; 97802; A4648; C1713; J7040; J7050; J7120; P9016; A4216; J2405

== ENCOUNTER 2024-01-31 07:19 | Emergency (ER) | payer OTHER, SELFPAY ==
[2024-01-31 07:20] VITALS: BP 140/99; PULSE 80; RESP 16; TEMP 36.4; O2SAT 99
--- NOTE | 2024-01-31 07:37 | MRI_ITS ---
STUDY: MRI LUMBAR SPINE WITH AND WITHOUT CONTRAST REASON FOR EXAM: Male, 68 years old. s/p back surgery with known osteomyelitis. TECHNIQUE: Standardized fat and water weighted pulse sequences were obtained in the sagittal and axial planes. IV 15ML CLARISCAN was administered for the contrast portion of the examination. COMPARISON: MRI of the lumbar spine dated January 02, 2024. CT lumbar spine dated January 19, 2024. MRI the lumbar spine dated December 11, 2023. FINDINGS: * Since the prior MRI the lumbar spine dated December 11, 2023 and interbody graft with posterior fusion rods and pedicle screws have been placed at the L4-L5 level. Postsurgical posterior decompressive defect is present at this level as well. No additional cortical or intramedullary bony erosion or destruction has occurred * Previously seen marrow edema throughout the L4 and L5 vertebral bodies has slightly decreased with mild residual edema remaining. * No liquefaction is seen in the L4-L5 disc space or surrounding the interbody graft. * No demonstrated epidural fluid collection * No new areas of marrow edema are present. * No compression deformity or fracture or evidence of active discitis or vertebral osteomyelitis * Interval appearance of mild edema in the medial muscle fibers of the left psoas muscle at the L4-L5 level, either due to postsurgical in nature or due to myositis or infection as it was not present on the prior study of December 11, 2023. * No abscess is seen within the psoas muscle fibers or in the paraspinal muscles. * Redemonstration of multilevel degenerative changes, however no central canal stenosis is present. * Small reactive enhancement across the L4-L5 disc space and in the fibrotic material in the surgical bed. Otherwise no suspicious or abnormal enhancement of the remaining bony structures or soft tissue structures. Normal lumbar lordosis. There is a levoscoliosis of the lumbar spine. Normal conus medullaris that terminates at the L1 level. Normal visualized sacral ala. There is moderate paraspinal muscular atrophy. MRI/Spine Lumbar W/WO Contrast IMPRESSION: 1. Interval appearance of posterior fusion hardware and interbody graft at L4-L5 level 2. Interval decrease in marrow edema of the L4 and L5 vertebral bodies when compared to the prior study 3. No demonstrated active or continued bony erosion or destruction to suggest active osteomyelitis 4. Interval appearance of mild edema in the medial muscle fibers of the left psoas muscle at the L4-L5 level, either due to postsurgical in nature or due to myositis or infection as it was not present on the prior study of December 11, 2023. 5. No abscess is present. Electronically Signed: Arnav Nobles MD at 11:08 EDT ,
--- NOTE | 2024-01-31 07:39 | EDS_ITS ---
HPI History of Present Illness Chief Complaint: Back Informant: patient and spouse/S.O. Onset/Context/Timing Onset: Days Context: Gradual Onset Timing: Continuous Quality: Sharp Location: Lumbar Current Severity: Moderate Maximum Severity: Moderate Worsened by: improves with Movement Relieved by: Nothing Associated Symptoms Associated Symptoms: Tingling, Radiation to Right Leg and Radiation to Left Leg Narrative Narrative: 68-year-old male history of multiple prior back surgeries had [address] Godoy and again about [address] Mercer for an L4-5 laminectomy and fusion. After his surgery in July he was diagnosed with osteomyelitis. He has been off and on antibiotics. Currently I believe he is on IV vancomycin through a PICC line. He presents today because he is having increasing lower back pain with radiation to both lower legs and he says his legs feel weaker. He denies any bowel or bladder incontinence. He denies any fall or trauma. Prior similar symptoms: Yes Recent Illness/Hospitalization: Yes [facility] Medical History Bilirubinuria Contact with or exposure to other viral diseases Lumbosacral radiculopathy at L5 History of steroid therapy Smokeless tobacco use Tension headache Agent orange exposure Bilateral primary osteoarthritis of knee Wears hearing aid Cancer Alcohol use Diabetes Ambulates with cane Arthritis Prostate disease High cholesterol (~08/21/23) Restless legs Back pain Injury of head and neck Syncope History of IBS Shortness of breath on exertion History of pain when walking History of echocardiogram History of stress test Cardiology follow-up encounter Tear of medial meniscus of right knee Fibromyalgia BPH w urinary obs/LUTS Left knee DJD Right knee DJD Fusion of spine, cervical region Chondromalacia, right knee Chondromalacia, left knee Chondromalacia of both patellae COVID-19 virus detected (11/19/20) Nonrheumatic aortic (valve) stenosis with insufficiency Opioid dependence Obesity Asthma Hyperlipemia Essential (primary) hypertension Atherosclerotic heart disease of [place] coronary artery without angina pectoris Type 2 diabetes mellitus Spondylosis of lumbosacral region without myelopathy or radiculopathy Spinal stenosis of lumbosacral region Radiculopathy of lumbosacral region Degeneration of intervertebral disc of lumbosacral region Arthropathy of cervical facet joint Degeneration of cervical disc without myelopathy Cervical spondylosis Home Medications ?Medication ?Instructions ?Recorded ?Last Taken ?Type aspirin 81 mg tablet,delayed 81 mg PO DAILY HEART HEALTH 12/23/15 12/28/23 History release multivitamin 1 tab PO DAILY supplement 07/09/19 01/18/24 History handicap placard #1 ea 04/21/22 Unknown Rx blood sugar diagnostic (FreeStyle #100 ea 09/15/22 Unknown Rx Lite Strips) blood-glucose meter (FreeStyle #1 ea 09/15/22 Unknown Rx Lite Meter kit) fluticasone propionate 50 1 - 2 spray intranasal BID PRN 04/27/23 01/30/24 Rx mcg/actuation nasal allergies, congestion #16 grams spray,suspension atorvastatin 40 mg tablet 40 mg PO QHS CHOLESTEROL #90 tabs 08/21/23 01/30/24 Rx trazodone 50 mg tablet 50 - 100 mg (1 - 2 x 50 mg) PO QHS 08/21/23 01/30/24 Rx sleep #90 tabs metformin 500 mg tablet 500 mg PO BID DIABETIC 1 month #60 12/12/23 01/30/24 Rx tabs linaclotide 72 mcg capsule 72 mcg PO DAILY irritable colon 01/02/24 01/18/24 History (Linzess) duloxetine 30 mg capsule,delayed 30 mg PO DAILY ANXIETY #30 caps 01/03/24 01/30/24 Rx release gabapentin 400 mg capsule 400 mg PO TID PAIN #90 caps 01/03/24 01/30/24 Rx pantoprazole 40 mg tablet,delayed 40 mg PO DAILY GERD #30 tabs 01/03/24 01/30/24 Rx release baclofen 5 mg tablet 5 mg PO BID PAIN 01/16/24 01/30/24 History cefepime 2 gram solution for 2 g IV Q8 39 days #117 ea 01/22/24 01/31/24 Rx injection vancomycin 1.5 gram intravenous 1.5 g IV Q12H 39 days 01/22/24 Unknown Rx solution ferrous sulfate 325 mg (65 mg 325 mg PO QODAY #14 tabs 01/23/24 01/30/24 Rx iron) tablet oxycodone 5 mg tablet 2.5 - 5 mg (0.5 - 1 x 5 mg) PO Q6H 01/23/24 01/30/24 Rx PRN pain 10 days #40 tabs sennosides 8.6 mg-docusate sodium 2 tab PO BID PRN constipation 10 01/23/24 01/30/24 Rx 50 mg tablet (Stool days #40 tabs Softener-Stimulant Laxative) tamsulosin 0.4 mg capsule 0.4 mg PO DAILY@1730 #30 caps 01/23/24 01/30/24 Rx acetaminophen 500 mg tablet 1,000 mg PO Q8 PRN PAIN 01/31/24 01/30/24 History albuterol sulfate 90 mcg/actuation 1 - 2 puff inhalation Q4H PRN 01/31/24 Unkno wn History aerosol inhaler Wheezing Allergy/AdvReac Type Severity Reaction Status Date / Time adhesive tape Allergy Rash Verified 01/31/24 07:19 sertraline (From Zoloft) AdvReac Unknown Verified 01/31/24 07:19 Family History Brother Heart disease Myocardial infarction 60's CAD (coronary artery disease) Father Myocardial infarction 65 CAD (coronary artery disease) Mother HLD (hyperlipidemia) when son was 16 following MVA, healthy aside HLD. Surgical History Hx of laminectomy S/P laminectomy Status post discectomy for herniated nucleus pulposus History of lateral meniscus repair of right knee (~2021) Hx laparoscopic cholecystectomy (~11/2022) Hx of bilateral cataract extraction H/O cervical spine surgery (08/2020) History of herniorrhaphy History of carpal tunnel release History of back surgery History of left heart catheterization (09/09/11) H/O coronary artery bypass surgery (09/14/11) Social History household members: spouse Smoking Status: Former smoker Smokeless tobacco user: chewing tobacco alcohol intake: current alcohol intake frequency: a few times a month substance use type: does not use caffeine: Yes Type: coffee Number of servings: 2 ROS ROS ED ROS Narrative Back pain. Radiating to both legs. Review of Systems ROS Unobtainable: Denies due to encephalopathy Constitutional Constitutional ED: Denies chills or fever(s) Eyes Eyes: Denies blurry vision ENT ENT ED: Denies ear pain Cardiovascular Cardiovascular: Denies chest pain Respiratory/Chest Respiratory/Chest: Denies dyspnea Gastrointestinal Gastrointestinal: Denies abdominal pain Genitourinary Genitourinary ED: Denies dysuria or hematuria Musculoskeletal Musculoskeletal: Reports back pain; Denies arthralgias Integumentary Denies abscess or Abrasions Neurologic Neurologic: Denies headache(s) Psychiatric Psychiatric: Denies anxiety Endocrine Endocrinology: Denies cold intolerance Hematologic/Lymphatic Hematologic/Lymphatic: Denies easy bleeding or easy bruising Allergic/Immunologic Allergic/Immunologic ED: Denies mouth swelling or tongue swelling EXAM Physical Exam Narrative Exam Narrative: 68-year-old male sitting upright in bed. at bedside. Vital signs are stable afebrile. He does not look septic or toxic. He is complaining of back pain. H EENT exam unremarkable. Neck nontender. Lungs are clear. Heart regular rhythm rate about 80 no murmur. Abdomen is soft and nontender. Moving all 4 extremities. He has bilateral lower extremity weakness. He has pain with lifting either leg off the bed. He has general weakness to both lower extremities. He has medial thigh sensation. He said it is decreased however. His dorsi and plantarflexion is weaker also. Upper extremities he has normal strength and sensation. His back exam is well-healing paralumbar incisions. He also has incision on his left iliac crest which is dry and clean. Neurologically he is awake and alert. He has decreased sensation in his legs but he does have sensation. He has decreased motor strength in his lower extremities. Const Vital Signs: 01/31/24 07:20 01/31/24 10:00 01/31/24 10:52 Temperature 97.6 F L 97.2 F L Temperature Source Temporal Temporal Pulse Rate 80 80 81 Respiratory Rate 16 16 18 Blood Pressure 140/99 H 134/87 H 151/78 H Blood Pressure Mean 112 102 102 Pulse Ox 99 100 98 Oxygen Delivery Method Room Air Room Air Room Air 01/31/24 12:00 Temperature 97.5 F L Temperature Source Temporal Pulse Rate 82 Respiratory Rate 19 H Blood Pressure 145/68 H Blood Pressure Mean 93 Pulse Ox 97 Oxygen Delivery Method Room Air Positive well nourished and well developed; Negative for cachectic, contractures or unkempt General Appearance ED: well developed; Negative for unkempt, cachectic, contractures, NAD or pallor Nutritional Appearance: Negative for cachectic HEENT Reports moist mucous membranes Negative for trauma or tenderness Eyes PERRL and EOMs intact bilaterally General Eye ED: Negative for pale conjunctiva or scleral icterus Neck no lymphadenopathy, supple and no JVD General: Negative for tenderness Thyroid: Negative for other Resp normal respiratory effort and clear to auscultation bilaterally Effort and Inspection: Negative for pain with movement Auscultation: Negative for rales, rhonchi or wheezes Cardio regular rate, regular rhythm, S1 normal heart sound, S2 normal heart sound and no murmurs Rhythm: Negative for abnormal rhythm GI normal to inspection, nondistended, normoactive bowel sounds, soft to palpation, non-tender, non-distended and no masses Inspection: Negative for abdominal distention Palpation: Negative for tender, guarding or rebound tenderness present Back/Spine normal to inspection and no thoracic nor lumbar tenderness Back/Spine Narrative: Well-healing Abel lumbar incisions. They are dry and clean. No redness or pus. No cellulitis. Cervical Spine: Negative for cervical spine tenderness Thoracic Spine / Upper Back: Negative for paraspinal muscle tenderness Extremity no clubbing, cyanosis or edema; Negative for normal to inspection Extremity Narrative: Generalized weakness both lower extremities. He has sensation but is decreased. General Extremety ED: Negative for edema or tenderness General Extremity: Negative for edema Neuro oriented x3 and No no sensory deficits noted Sensorium / Orientation: alert; Negative for confused, lethargic or stuporous Motor Exam: Negative for strength 5/5 throughout Psych mental status grossly normal Appearance: Negative for unkempt Attitude: No agitated Mood & Affect: tearful; Negative for depressed or sad Skin no rashes or lesions noted and no wounds General Skin Exam: Negative for jaundice or pallor Lesions: No lesion noted Rashes: No rashes noted Trauma: Negative for abrasion or puncture Wounds: Negative for wounds noted MDM MDM MDM Narrative Medical decision making narrative: 68-year-old male known diabetic, coronary disease with bypass and multiple prior back surgeries. Complaining of increasing back pain after having surgery 2 weeks ago. He has known osteomyelitis and is currently on IV antibiotics via PICC line. Screening labs to be obtained. To be given Dilaudid for pain and Zofran to prevent nausea. I am going to get an MRI to re-image his lumbar spine to evaluate any significant infectious changes and rule out abscess. Will speak to his spine surgeon once I get some results back. Multiple repeat exams patient is doing much better at 12:40 PM. His spine ruben geon Dr. Mercer without emergency room evaluate the patient. He is reviewed his CAT scan and MRI. He is comfortable patient being discharged home with pain medication and has follow-up with him I believe on Monday of this week. I discussed this all with the patient and his . He said he has pain medication other medications at home to use he did not any prescriptions. Both he and his are comfortable with him being discharged. Clinically looks well right now he is smiling. His pain is well-controlled. He has good strength and sensation both lower extremities. Lab Data Attestation: I reviewed the patient's lab results. Lab results narrative: Chemistries show potassium 3.2 gap 3. Normal BUN and creatinine. Glucose 124. C-reactive protein is mildly elevated at 6.9. White count of 5.6. H&H 8.8 and 27 consistent with his baseline chronic anemia. Platelets 414. CT and MRI of the lumbar spine read by the radiologist and his spine surgeon shows chronic changes but no significant acute changes. Labs: Laboratory Results - last 24 hr 01/31/24 07:47 WBC 5.6 RBC 3.11 L Hgb 8.8 L Hct 27.6 L MCV 88.7 MCH 28.3 MCHC 31.9 L RDW Std Deviation 45.1 H RDW Coeff of Frankie 14.0 Plt Count 414 MPV 7.8 Immature Gran % (Auto) 0.400 Neut % (Auto) 65.0 Lymph % (Auto) 19.3 [place] % (Auto) 10.4 H Eos % (Auto) 3.8 Baso % (Auto) 1.1 H Absolute Neuts (auto) 3.7 Absolute Lymphs (auto) 1.08 Nucleated RBC % 0 Sodium 138 Potassium 3.2 L Chloride 105 Carbon Dioxide 30.0 Anion Gap 3 L BUN 11 Creatinine 0.96 Est GFR (MDRD) Af Amer 99 Est GFR (MDRD) Non-Af 82 BUN/Creatinine Ratio 11.4 Glucose 124 H Calcium 9.2 C-React Prot Ext Range 6.90 H Radiography Diagnostic Testing: Clinical Impression(s) from Imaging Studies Lumbar Spine MRI 01/31/24 07:37 IMPRESSION: 1. Interval appearance of posterior fusion hardware and interbody graft at L4-L5 level 2. Interval decrease in marrow edema of the L4 and L5 vertebral bodies when compared to the prior study 3. No demonstrated active or continued bony erosion or destruction to suggest active osteomyelitis 4. Interval appearance of mild edema in the medial muscle fibers of the left psoas muscle at the L4-L5 level, either due to postsurgical in nature or due to myositis or infection as it was not present on the prior study of December 11, 2023. 5. No abscess is present. Electronically Signed: Arnav Nobles MD at 11:08 EDT , Lumbar Spine CT 01/31/24 10:29 IMPRESSION: 1. Status post hardware fusion placement/surgery at L4-L5 2. Residual sequela from chronic osteomyelitis but no demonstrated active or progressive osteomyelitis Electronically Signed: Arnav Nobles MD at 11:39 EDT , Discharge Plan Triage Chief Complaint: Back ED Provider: Emanuel Romano Dx/Rx/DC Orders Clinical Impression: Back pain, Lumbosacral radiculopathy at L5, Hx of osteomyelitis, History of back surgery, Hx of CABG, History of borderline diabetes mellitus Prescriptions: No Action multivitamin Tablet 1 tab PO DAILY (DME) handicap placard See Rx Instructions .Route .MEDSUPPLY Qty: 1 0RF Rx Instructions: fatique , pain in right knee , oteoarathritis aspirin 81 MG tablet,delayed release (DR/EC) 81 mg PO DAILY metformin 500 mg tablet 500 mg PO BID 30 Days Qty: 60 2RF Rx Instructions: Start from 12/14/2023 Linzess 72 mcg capsule 72 mcg PO DAILY Patient Comments: PT HASNT USED IN APPROX 1 WEEK. duloxetine 30 mg Capsule,Delayed Release(Dr/Ec) 30 mg PO DAILY Qty: 30 1RF gabapentin 400 mg Capsule 400 mg PO TID Qty: 90 0RF pantoprazole 40 mg Tablet,Delayed Release (Dr/Ec) 40 mg PO DAILY Qty: 30 0RF baclofen 5 mg tablet 5 mg PO BID cefepime 2 gram Recon Soln 2 g IV Q8 39 Days Qty: 117 0RF Rx Instructions: stop date 03/01/24. Dx: spine osteomyelitis. Weekly bmp, cbc, esr, and vanc trough. Fax to [phone]. Routine picc care per protocol. vancomycin 1.5 gram recon soln 1.5 g IV Q12H 39 Days Rx Instructions: stop date 03/01/24. Dx: spine osteomyelitis. Weekly bmp, cbc, esr, and vanc trough. Fax to [phone]. Routine picc care per protocol. ferrous sulfate 325 mg (65 mg iron) tablet 325 mg PO QODAY Qty: 14 0RF tamsulosin 0.4 mg Capsule 0.4 mg PO DAILY@1730 Qty: 30 0RF oxycodone 5 mg Tablet 2.5 - 5 mg PO Q6H PRN (Reason: pain) 10 Days Qty: 40 0RF sennosides-docusate sodium [Stool Softener-Stimulant Laxat] 8.6-50 mg Tablet 2 tab PO BID PRN (Reason: constipation) 10 Days Qty: 40 0RF acetaminophen 500 mg Tablet 1,000 mg PO Q8 PRN (Reason: PAIN) albuterol sulfate 90 mcg/actuation HFA aerosol inhaler 1 - 2 puff INHALATION Q4H PRN (Reason: Wheezing) (DME) FreeStyle Lite Strips Strip See Rx Instructions .Route Qty: 100 3RF Rx Instructions: Twice daily (DME) blood-glucose meter [FreeStyle Lite Meter] Kit See Rx Instructions .Route Qty: 1 0RF Rx Instructions: Test twice daily fluticasone propionate 50 mcg/actuation spray,suspension 1 - 2 spray intranasal BID PRN (Reason: allergies, congestion) Qty: 16 3RF Rx Instructions: administer into each nostril; 2 sprays in each nostril for the first week atorvastatin 40 mg tablet 40 mg PO QHS Qty: 90 3RF trazodone 50 mg tablet 50 - 100 mg PO QHS Qty: 90 3RF Primary Care Provider: Marlen Bear Referrals: Marlen Bear MD [Primary Care Provider] - Activity Restrictions/Additional Instructions: Continue your current pain medications at home. Follow-up with your spine doctor with your prescheduled appointment for this Monday. Print Language: Mozambican Disposition Disposition: Home, Self Care
[2024-01-31] MEDS: HYDROmorphone 1 MG/ML Syringe 0.5 MG IV (07:45)
[2024-01-31] MEDS: Ondansetron 4 MG/2 ML Vial IV (07:45)
[2024-01-31 08:08] LABS: Anion Gap 3 (5-15); BUN 11 mg/dL (7-18); BUN/Creat Ratio 11.4 RATIO (10-20); Calcium,Total 9.2 mg/dL (8.5-10.1); Chloride 105 mmol/L (98-107); Creatinine, Serum 0.96 mg/dL (0.70-1.30); EST Glomerular Filtration Rate 82 mL/min (>60); Est Glom Filt Rate - Afr Amer 99 mL/min (>60); Glucose 124 mg/dL (74-106); Potassium 3.2 mmol/L (3.5-5.1); Sodium Level 138 mmol/L (136-145)
[2024-01-31 08:12] LABS: Absolute Lymphocyte Count 1.08 X10^3/uL (0.83-4.51); Absolute Neutrophil Count 3.7 X10^3/uL (2.0-7.7); Basophil# 0.06 X10^3/uL; Basophil% 1.1 % (0-1); Eosinophil# 0.21 X10^3/uL; Eosinophils% 3.8 % (0-5); Hematocrit 27.6 % (40-54); Hemoglobin 8.8 g/dL (13.0-16.5); Lymphocyte # 1.08 X10^3/ul (0.83-4.51); Lymphocyte % 19.3 % (19-41); Mean Corp Hgb Conc 31.9 g/dL (32-36); Mean Corpuscular Hgb 28.3 pg (27.0-32.0); Mean Corpuscular Volume 88.7 fL (80-94); Mean Platelet Vol. 7.8 fl (6.2-12.0); Monocyte# 0.58 X10^3/uL; Monocyte% 10.4 % (0-10); NRBC Flagged by Analyzer 0 % (0-5); Neutrophil # 3.65 X10^3/uL (2.7-7.7); Platelet Count 414 K/mm3 (150-450); RBC Distribution Width SD 45.1 fl (35.1-43.9); Red Blood Count 3.11 M/mm3 (4.6-6.2); White Blood Count 5.6 K/mm3 (4.4-11.0)
[2024-01-31 08:15] LABS: Erythrocyte Sedimentation Rate 31 mm/hr (0-20)
[2024-01-31] MEDS: HYDROmorphone 0.5 MG/0.5 ML SYRINGE IV (08:48)
--- NOTE | 2024-01-31 09:18 | NURSING ---
[id number] LEONARDO [phone] LEFT MESSAGE WITH GALLEY BOY FOR DR LEONARDO
[2024-01-31 10:00] VITALS: BP 134/87; PULSE 80; RESP 16; TEMP 36.2; O2SAT 100
[2024-01-31] MEDS: fentaNYL 100 MCG/2 ML Ampul 25 MCG IV (10:03)
--- NOTE | 2024-01-31 10:29 | CT_ITS ---
STUDY: CT LUMBAR SPINE WITHOUT CONTRAST REASON FOR EXAM: Male, 68 years old. back pain s/p surgery and osteomyelitis. PT STATES HAD BACK SURGERY X2 WEEKS AGO. STATES ON ATB FOR INFECTION IN BACK. STATES PAST 2 DAYS HAS T;TERRIBLE BACK PAIN. THAT GOES INTO LEGSTquot; STATES KEEPS GETTING HOT FLASHES. STATES ON VANC THROUGH PICC RADIATION DOSAGE (If Supplied By Facility): CTDIvol = ( 12.18 ) mGy, DLP = ( 430.15 ) mGycm TECHNIQUE: The patient was scanned in a multi detector CT scanner. High resolution transaxial imaging was performed. Images were obtained from to . Sagittal and coronal images were reconstructed. Individualized dose optimization techniques were used for this CT. COMPARISON: MRI of the lumbar spine dated January 31, 2024. CT of the lumbar spine dated January 01, 2024. X-ray of the lumbar spine dated January 22, 2024. FINDINGS: * Interval placement of bilateral pedicle screws and fusion rods and interbody graft at the L4-L5 level since the prior CT of the lumbar spine dated January 01, 2024. New posterior decompressive defects also spanning from L3-L4 down to L4-L5. * Sclerosis and pre-existing cortical erosion at the articulating endplates of L4 and L5 unchanged from the prior study, which represents sequela of chronic osteomyelitis. There is no evidence of active osteomyelitis or continued cortical erosion or bony loss. * No new areas of osteomyelitis are present in the remaining aspects of the lumbar spine * No acute fracture or compression deformity * No visualized paraspinal also lies muscle abscess. Edema and swelling of the left psoas muscle demonstrated at the L4-L5 level on the MRI exam but is not detected on this CT. * Multilevel degenerative changes at the remaining levels redemonstrated * No demonstrated central canal stenosis Biopsy or surgical incision tract is seen in the left abdominal flank and intra-abdominal region adjacent to the left psoas muscle with an rectangular shaped encapsulated focus of air and fluid. This is indicative of the postoperative tract and not an abscess. Underlying cortical plate threaded screw in the left anterior aspect of the L5 vertebral body. The visualized lung bases are clear. Preserved lumbar lordosis. Moderate levoscoliosis. CT/Spine Lumbar without Contrast IMPRESSION: 1. Status post hardware fusion placement/surgery at L4-L5 2. Residual sequela from chronic osteomyelitis but no demonstrated active or progressive osteomyelitis Electronically Signed: Arnav Nobles MD at 11:39 EDT ,
[2024-01-31] MEDS: morphine 8 MG/ML Syringe 6 MG IV (10:48)
[2024-01-31 10:52] VITALS: BP 151/78; PULSE 81; RESP 18; O2SAT 98
[2024-01-31 12:00] VITALS: BP 145/68; PULSE 82; RESP 19; TEMP 36.4; O2SAT 97
[2024-01-31 12:56] VITALS: BP 156/79; PULSE 88; RESP 18; TEMP 36.4; O2SAT 98
== END 2024-01-31 13:03 | disposition home or self-care (01) ==
PROVIDERS: Emergency Provider Emergency Medicine; PCP Internal Medicine; Visit Provider Emergency Medicine
DX: M54.17 Radiculopathy, lumbosacral region (principal); M46.26 Osteomyelitis of vertebra, lumbar region; E11.9 Type 2 diabetes mellitus without complications; F17.220 Nicotine dependence, chewing tobacco, uncomplicated; Z98.890 Other specified postprocedural states; E78.00 Pure hypercholesterolemia, unspecified; I10 Essential (primary) hypertension; I25.10 Atherosclerotic heart disease of native coronary artery without angina pectoris; J45.909 Unspecified asthma, uncomplicated; Z79.51 Long term (current) use of inhaled steroids; Z95.1 Presence of aortocoronary bypass graft
CPT/HCPCS: 36592; 72131; 72158; 80048; 85025; 85652; 86140; 96374; 96375; 96376; 99282; A9575; A4216; J2405

== ENCOUNTER 2024-02-06 11:05 | Outpatient (RCR) | payer MEDICARE, SELFPAY ==
[2024-01-30 12:18] LABS: Anion Gap 5 (5-15); BUN 13 mg/dL (7-18); BUN/Creat Ratio 13.6 RATIO (10-20); Calcium,Total 8.6 mg/dL (8.5-10.1); Chloride 105 mmol/L (98-107); Creatinine, Serum 0.96 mg/dL (0.70-1.30); EST Glomerular Filtration Rate 83 mL/min (>60); Est Glom Filt Rate - Afr Amer 100 mL/min (>60); Glucose 113 mg/dL (74-106); Sodium Level 139 mmol/L (136-145)
[2024-01-30 12:19] LABS: Erythrocyte Sedimentation Rate 26 mm/hr (0-20)
[2024-01-30 12:22] LABS: Hematocrit 28.1 % (40-54); Mean Corpuscular Volume 90.6 fL (80-94); Platelet Count 455 K/mm3 (150-450); RBC Distribution Width CV 14.1 % (11.6-14.6); RBC Distribution Width SD 45.8 fl (35.1-43.9); White Blood Count 6.8 K/mm3 (4.4-11.0)
[2024-01-30 12:32] LABS: Vancomycin, Trough Level 27.7 ug/mL (5.0-15.0)
[2024-02-06 12:56] LABS: Vancomycin, Trough Level 29.7 ug/mL (5.0-15.0)
[2024-02-06 12:58] LABS: Erythrocyte Sedimentation Rate 15 mm/hr (0-20); Hematocrit 31.9 % (40-54); Hemoglobin 9.7 g/dL (13.0-16.5); Mean Corp Hgb Conc 30.4 g/dL (32-36); Mean Corpuscular Volume 91.9 fL (80-94); Mean Platelet Vol. 8.2 fl (6.2-12.0); Platelet Count 407 K/mm3 (150-450); RBC Distribution Width CV 14.5 % (11.6-14.6); RBC Distribution Width SD 48.9 fl (35.1-43.9); Red Blood Count 3.47 M/mm3 (4.6-6.2)
[2024-02-06 13:07] LABS: Anion Gap 7 (5-15); BUN 16 mg/dL (7-18); BUN/Creat Ratio 14.4 RATIO (10-20); Calcium,Total 9.1 mg/dL (8.5-10.1); Chloride 109 mmol/L (98-107); Creatinine, Serum 1.11 mg/dL (0.70-1.30); EST Glomerular Filtration Rate 69 mL/min (>60); Est Glom Filt Rate - Afr Amer 84 mL/min (>60); Glucose 90 mg/dL (74-106); Potassium 3.9 mmol/L (3.5-5.1); Sodium Level 143 mmol/L (136-145)
== END 2024-02-06 18:00 | disposition home or self-care (01) ==
LOC: HHLAB 11:05
PROVIDERS: PCP Internal Medicine; Referring Provider Internal Medicine Infectious Disease; Visit Provider Internal Medicine Infectious Disease
DX: M46.20 Osteomyelitis of vertebra, site unspecified
CPT/HCPCS: 36415; 80048; 80202; 85027; 85652

== ENCOUNTER 2024-02-08 11:30 | Outpatient (CLI) | payer MEDICARE, SELFPAY ==
[2024-02-08 11:40] VITALS: BP 155/83; PULSE 82; RESP 16; TEMP 36.4; O2SAT 98; BMI 23.9
[2024-02-08] MEDS: 0.9% NaCl Peripheral Flush Adult/Peds IV ×2 (11:44→12:52)
[2024-02-08] MEDS: 0.9% NaCl IVPB Med Flush (250 mL) 15 ML IV (11:45)
[2024-02-08] MEDS: Ertapenem Sod 1 GM in 0.9% Normal Saline (50mL MB+) 50 ML IV (11:50)
[2024-02-08 12:53] VITALS: BP 151/82; PULSE 70; RESP 16; TEMP 36.3; O2SAT 99
== END 2024-02-08 23:59 | disposition home or self-care (01) ==
LOC: MEDOUTP 11:31
PROVIDERS: PCP Internal Medicine; Referring Provider Internal Medicine Infectious Disease; Visit Provider Internal Medicine Infectious Disease
DX: M46.26 Osteomyelitis of vertebra, lumbar region (principal)
CPT/HCPCS: 96365; J7050; A4216

== ENCOUNTER 2024-02-12 21:45 | Observation (INO) | payer OTHER, SELFPAY ==
[2024-02-12 21:46] VITALS: BP 149/79; PULSE 70; RESP 20; TEMP 36.6; O2SAT 100; BMI 24.3
[2024-02-12 21:50] VITALS: BP 149/79; PULSE 68; RESP 18; TEMP 36.6; O2SAT 96
--- NOTE | 2024-02-12 22:04 | CT_ITS ---
STUDY: CT BRAIN WITHOUT CONTRAST REASON FOR EXAM: Male, 68 years old. confusion RADIATION DOSAGE (If Supplied By Facility): CTDIvol = ( 44.99 ) mGy, DLP = ( 829.85 ) mGycm TECHNIQUE: Transaxial CT imaging of the brain was performed without administration of intravenous contrast material. Individualized dose optimization techniques were used for this CT. COMPARISON: No relevant priors. FINDINGS: Normal soft tissue structures. Normal calvarium. Normal size ventricles and extra-axial spaces for the patient''s age. Mild white matter microangiopathic ischemic changes of the cerebral hemispheres. Probable old lacunar infarct in the left basal ganglia. Normal thalami. Normal brainstem. Normal cerebellum. There is no intracranial hemorrhage. There are no findings of an acute ischemic infarction. Normal visualized paranasal sinuses. CT/Brain/Head without Contrast IMPRESSION: Age-related and chronic changes of the brain. Electronically Signed: Logan Eaton DO at 23:34 EDT ,
[2024-02-12 22:30] LABS: Absolute Lymphocyte Count 0.86 X10^3/uL (0.83-4.51); Absolute Neutrophil Count 5.8 X10^3/uL (2.0-7.7); Basophil# 0.03 X10^3/uL; Basophil% 0.4 % (0-1); Hematocrit 30.2 % (40-54); Lymphocyte # 0.86 X10^3/ul (0.83-4.51); Mean Corp Hgb Conc 33.1 g/dL (32-36); Mean Corpuscular Hgb 28.5 pg (27.0-32.0); Mean Platelet Vol. 8.6 fl (6.2-12.0); Monocyte# 0.45 X10^3/uL; Monocyte% 6.3 % (0-10); NRBC Flagged by Analyzer 0 % (0-5); Neutrophil # 5.79 X10^3/uL (2.7-7.7); Platelet Count 247 K/mm3 (150-450); RBC Distribution Width CV 13.5 % (11.6-14.6); RBC Distribution Width SD 41.9 fl (35.1-43.9); Red Blood Count 3.51 M/mm3 (4.6-6.2); White Blood Count 7.2 K/mm3 (4.4-11.0)
--- NOTE | 2024-02-12 22:30 | RAD_ITS ---
INDICATION: confusion EXAMINATION/TECHNIQUE: X-RAY - XR Chest 1 View COMPARISON: FINDINGS: LINES/DEVICES: Sternotomy wires over the mediastinum. Right PICC line tip at the distal SVC. LUNGS: No consolidation, edema or effusion. No pneumothorax. MEDIASTINUM AND CARDIOVASCULAR STRUCTURES: Cardiac silhouette not enlarged. Central airways and mediastinal contour are unremarkable. BONES AND SOFT TISSUES: Surgical fusion at the cervicothoracic junction. RAD/Chest 1 View (Portable) IMPRESSION: No radiographic evidence of acute cardiopulmonary disease. Electronically Signed: Logan Eaton DO at 0:00 EDT Reading Location ID and State: [facility] / [place] Tel [phone], Service support ,
[2024-02-12 22:45] VITALS: BP 164/76; PULSE 66; RESP 18; O2SAT 97
[2024-02-12] MEDS: 0.9% Normal Saline (1000mL) 1,000 ML 999 ML IV (22:49)
[2024-02-12 23:01] LABS: Anion Gap 12 (5-15); BUN 15 mg/dL (7-18); BUN/Creat Ratio 12.6 RATIO (10-20); Calcium,Total 9.2 mg/dL (8.5-10.1); Chloride 97 mmol/L (98-107); Creatinine, Serum 1.19 mg/dL (0.70-1.30); EST Glomerular Filtration Rate 64 mL/min (>60); Est Glom Filt Rate - Afr Amer 78 mL/min (>60); Estimated Creatinine Clearance 59.64 ml/min; Glucose 141 mg/dL (74-106); Magnesium 1.8 mg/dL (1.6-2.6); Potassium 3.2 mmol/L (3.5-5.1); Sodium Level 132 mmol/L (136-145); Thyroid Stim Hormone (TSH) 1.74 uIU/mL (0.358-3.74)
[2024-02-12 23:39] VITALS: BP 153/73; PULSE 72; RESP 19; TEMP 36.8; O2SAT 97
[2024-02-12 23:42] LABS: Bacteria 0 SEEN /hpf (None Seen); Mucous, Urine 0 SEEN /hpf (<or=2+); Red Blood Cells-Urine 0 SEEN /hpf (0-5); Squamous Epithelial Cells - UA 0 SEEN /hpf (0-5); White Blood Cells 0 SEEN /hpf (0-5)
[2024-02-12 23:46] LABS: Color, Urine Yellow (Yellow); Glucose, Dipstick Normal (Normal); Ketone-Dipstick 50 mg/dl (Negative); Leukocyte Esterase-Dipstick Negative /ul (Negative); Nitrite-Dipstick Negative (Negative); Occult Blood-Urine 25 /ul (Negative); Protein-Dipstick 30 mg/dl (Negative); Specific Gravity, Urine 1.015 (1.002-1.030); Urine Bilirubin Dipstick Negative (Negative); Urine Clarity Clear (Clear); Urine Urobilinogen Normal (Normal)
[2024-02-13] VITALS (9 sets, daily range): BP systolic 115–157; BP diastolic 72–80; PULSE 56–71; RESP 15–18; TEMP 36.6–38.1; O2SAT 96–100; BMI 23.4
[2024-02-13 00:04] LABS: Alcohol, Blood (Medical)-Serum < 3.0 mg/dL
[2024-02-13 00:12] LABS: Lactic Acid 1.3 mmol/L (0.4-1.9)
[2024-02-13] MEDS: Ondansetron 4 MG/2 ML Vial IV ×3 (00:12→19:51)
[2024-02-13 00:17] LABS: Procalcitonin 0.06 ng/mL (0.00-0.09)
--- NOTE | 2024-02-13 00:22 | PCM.HP.STD ---
[facility] - General General Date of Admission: 02/13/24 Date of Service: 02/13/24 Chief Complaint: AMS, Poor Appetite, Generally Weak and Can No Longer Care for Him at Home. [facility] Narrative JARET BATES, is a 68 M with a past medical history of essential hypertension, hyperlipidemia, DM-2; of unknown control, CAD; s/p CABG x 3 (2011), Asthma, smokeless tobacco abuse, OA; bilateral knee pain, history of cervical spondylosis; s/p cervical spine fusion (2020), history of spinal stenosis of the lumbosacral region, DDD, RLS, history of BPH; with urinary obstruction, history of laparoscopic cholecystectomy (2022), history of COVID-19 (2020), remote history of agent orange exposure, chronic debility; ambulating with cane, fibromyalgia, IBS, history of opioid dependence and recently diagnosed discitis and osteomyelitis in the setting of previous discectomy and laminectomy for herniated nucleus pulposus with repeat L4-L5 laminectomy on the Left with discectomy and decompression of the L5 nerve root by Dr. Godoy (07/2023) with recent admission here in December 2023 with fevers and worsening back pain with workup eventually positive for recurrence of discitis and osteomyelitis; s/p L4-L5 anterolateral debridement with anterior fusion on 01/19/[address] Bradshaw of orthopedic-spinal surgery also followed by Dr. Wilkinson of infectious disease on IV Vancomycin and IV Cefepime for the past 5 days with patient complaining of altered mental status, poor appetite, generalized weakness and his claiming she can no longer care for him at home. Mr. Bates reports his acute symptoms began approximately one week prior to admission when he began trying to wean down on his pain medications. The ER provider also raised concerns for possible worsening side effects of Cefepime that may be contributing to his clinical decline as the patient states his problems clearly worsened after starting on this agent and they have persisted since that time over the past 5 days with intermittent confusion and nausea causing poor appetite with patient having little to no energy. He denies any saddle anesthesia, urinary retention, bowel or bladder incontinence, lower extremity weakness, history of IVDA, no recent spinal manipulation or trauma, no recent surgery and no recent urinary catheterization. In the ER he was noted to have have a a normal WBC of 7.2 present on admission and was afebrile at 97.9 degrees Fahrenheit with no signs of acute infection with laboratory evidence of hypokalemia of 3.2 mmol/L and only +cannabis on UDS present on admission compounded by suspected adverse drug reaction to Cefepime with developing adult [id number] and he was then admitted to the general medical floor under observation status for a stay that is expected to be less than 2 midnights. [facility] Medical History Bilirubinuria Contact with or exposure to other viral diseases Lumbosacral radiculopathy at L5 History of steroid therapy Smokeless tobacco use Tension headache Agent orange exposure Bilateral primary osteoarthritis of knee Wears hearing aid Cancer Alcohol use Diabetes Ambulates with cane Arthritis Prostate disease High cholesterol (~08/21/23) Restless legs Back pain Injury of head and neck Syncope History of IBS Shortness of breath on exertion History of pain when walking History of echocardiogram History of stress test Cardiology follow-up encounter Tear of medial meniscus of right knee Fibromyalgia BPH w urinary obs/LUTS Left knee DJD Right knee DJD Fusion of spine, cervical region Chondromalacia, right knee Chondromalacia, left knee Chondromalacia of both patellae COVID-19 virus detected (11/19/20) Nonrheumatic aortic (valve) stenosis with insufficiency Opioid dependence Obesity Asthma Hyperlipemia Essential (primary) hypertension Atherosclerotic heart disease of [place] coronary artery without angina pectoris Type 2 diabetes mellitus Spondylosis of lumbosacral region without myelopathy or radiculopathy Spinal stenosis of lumbosacral region Radiculopathy of lumbosacral region Degeneration of intervertebral disc of lumbosacral region Arthropathy of cervical facet joint Degeneration of cervical disc without myelopathy Cervical spondylosis Home Medications ?Medication ?Instructions ?Recorded ?Last Taken ?Type aspirin 81 mg tablet,delayed 81 mg PO DAILY HEART HEALTH 12/23/15 12/28/23 History release multivitamin 1 tab PO DAILY supplement 07/09/19 01/18/24 History handicap placard #1 ea 04/21/22 Unknown Rx blood sugar diagnostic (FreeStyle #100 ea 09/15/22 Unknown Rx Lite Strips) blood-glucose meter (FreeStyle #1 ea 09/15/22 Unknown Rx Lite Meter kit) fluticasone propionate 50 1 - 2 spray intranasal BID PRN 04/27/23 01/30/24 Rx mcg/actuation nasal allergies, congestion #16 grams spray,suspension atorvastatin 40 mg tablet 40 mg PO QHS CHOLESTEROL #90 tabs 08/21/23 01/30/24 Rx trazodone 50 mg tablet 50 - 100 mg (1 - 2 x 50 mg) PO QHS 08/21/23 01/30/24 Rx sleep #90 tabs metformin 500 mg tablet 500 mg PO BID DIABETIC 1 month #60 12/12/23 01/30/24 Rx tabs linaclotide 72 mcg capsule 72 mcg PO DAILY irritable colon 01/02/24 01/18/24 History (Linzess) gabapentin 400 mg capsule 400 mg PO TID PAIN #90 caps 01/03/24 01/30/24 Rx baclofen 5 mg tablet 5 mg PO BID PAIN 01/16/24 01/30/24 History cefepime 2 gram solution for 2 g IV Q8 39 days #117 ea 01/22/24 01/31/24 Rx injection vancomycin 1.5 gram intravenous 1.5 g IV Q12H 39 days 01/22/24 Unknown Rx solution ferrous sulfate 325 mg (65 mg 325 mg PO QODAY #14 tabs 01/23/24 01/30/24 Rx iron) tablet sennosides 8.6 mg-docusate sodium 2 tab PO BID PRN constipation 10 01/23/24 01/30/24 Rx 50 mg tablet (Stool days #40 tabs Softener-Stimulant Laxative) tamsulosin 0.4 mg capsule 0.4 mg PO DAILY@1730 #30 caps 01/23/24 01/30/24 Rx acetaminophen 500 mg tablet 1,000 mg PO Q8 PRN PAIN 01/31/24 01/30/24 History albuterol sulfate 90 mcg/actuation 1 - 2 puff inhalation Q4H PRN 01/31/24 Unknown History aerosol inhaler Wheezing oxycodone 5 mg tablet 2.5 - 5 mg (0.5 - 1 x 5 mg) PO Q6H 02/02/24 Unknown Rx PRN pain 10 days #40 tabs duloxetine 30 mg capsule,delayed 30 mg PO DAILY ANXIETY #90 caps 02/05/24 Unknown Rx release Allergy/AdvReac Type Severity Reaction Status Date / Time adhesive tape Allergy Rash Verified 02/12/24 21:53 sertraline (From Zoloft) AdvReac Unknown Verified 02/12/24 21:53 Family History Brother Heart disease Myocardial infarction 60's CAD (coronary artery disease) Father Myocardial infarction 65 CAD (coronary artery disease) Mother HLD (hyperlipidemia) when son was 16 following MVA, healthy aside HLD. Surgical History Hx of laminectomy S/P laminectomy Status post discectomy for herniated nucleus pulposus History of lateral meniscus repair of right knee (~2021) Hx laparoscopic cholecystectomy (~11/2022) Hx of bilateral cataract extraction H/O cervical spine surgery (08/2020) History of herniorrhaphy History of carpal tunnel release History of back surgery History of left heart catheterization (09/09/11) H/O coronary artery bypass surgery (09/14/11) Social History household members: spouse Smoking Status: Current every day smoker tobacco type: smokeless tobacco Smokeless tobacco user: chewing tobacco alcohol intake: current alcohol intake frequency: a few times a month substance use type: does not use caffeine: Yes Type: coffee Number of servings: 2 ROS ROS Narrative Review of systems: General: Patient admits to decreased appetite with generalized weakness and malaise but he denies fever or chills. HENT: Denies headache, denies stuffy nose, denies sore throat EYES: Denies changes in vision or discharge from eyes. Resp: Denies cough, denies shortness of breath Cardiac: Denies chest pain, palpitations or heart racing. GI: Denies abdominal pain, denies changes in bowel, had some nausea but denies vomiting : Denies changes in urination Extremity: Denies swelling Musculoskeletal: Feels somewhat generally weak and unwell with chronic back pain but denies arthralgias or myalgias. Neuro: Patient admits to mild confusion that is intermittent but he denies headache, paresthesias or focal neurologic deficits. Heme: Denies any bleeding or bruising Skin: Denies rashes Psychiatric: No complaints voiced related to uncontrolled depression or anxiety. Endocrine: No polyuria, polydipsia or polyphagia. The rest of the 14 point ROS was negative except for positives in HPI. Vital Signs Vital Signs Vital Signs: 02/12/24 21:46 02/12/24 21:50 02/12/24 22:45 Temperature 97.9 F 97.9 F Temperature Source Oral Oral Pulse Rate 70 68 66 Respiratory Rate 20 H 18 18 Blood Pressure 149/79 H 149/79 H 164/76 H Blood Pressure Mean 102 102 105 Pulse Ox 100 96 97 Oxygen Delivery Method Room Air Room Air Room Air Oxygen Flow Rate (L/min) 02/12/24 23:39 02/13/24 00:13 Temperature 98.3 F Temperature Source Oral Pulse Rate 72 Respiratory Rate 19 H Blood Pressure 153/73 H Blood Pressure Mean 99 Pulse Ox 97 Oxygen Delivery Method Room Air Nasal Cannula Oxygen Flow Rate (L/min) 2 Weight Weight: 169 lb 15.622 oz Body Mass Index (BMI) 24.3 Physical Exam Const alert, no apparent distress and average body habitus Constitutional Narrative: Patient is mildly lethargic and appears chronically ill. General Appearance: cooperative Orientation / Consciousness: lethargic HEENT normocephalic, head/scalp atraumatic and hearing grossly normal bilaterally HEENT Narrative: Mucous membranes dry. Eyes PERRL and EOMs intact bilaterally Neck no lymphadenopathy and supple Resp normal respiratory effort, no retractions, no use of accessory muscles and clear to auscultation bilaterally Cardio regular rate and regular rhythm GI normal to inspection, nondistended, normoactive bowel sounds, soft to palpation, non-tender and non-distended Extremity normal to inspection and full ROM Skin Skin Narrative: Patient has no evidence of abscess, jaundice or rash. Neuro oriented x3, CN's II-XII intact bilaterally, moves all extremities and no focal motor deficits Sensorium / Orientation: awake, alert, oriented to person, oriented to place and oriented to time Speech: speech normal Psych Mood & Affect: depressed Results Medical Records Data Attestation: I reviewed the patient's medical records Lab / Micro Data Attestation: I reviewed the patient's lab results. 02/12/24 22:17 02/12/24 22:17 Labs: Laboratory Results - last 24 hr 02/12/24 22:17: WBC 7.2, RBC 3.51 L, Hgb 10.0 L, Hct 30.2 L, MCV 86.0, MCH 28.5, MCHC 33.1, RDW Std Deviation 41.9, RDW Coeff of [place] 13.5, Plt Count 247, MPV 8.6, Immature Gran % (Auto) 0.300, Neut % (Auto) 81.0 H, Lymph % (Auto) 12.0 L, [place] % (Auto) 6.3, Eos % (Auto) 0.0, Baso % (Auto) 0.4, Absolute Neuts (auto) 5.8, Absolute Lymphs (auto) 0.86, Nucleated RBC % 0, Sodium 132 L, Potassium 3.2 L, Chloride 97 L, Carbon Dioxide 23.0, Anion Gap 12, BUN 15, Creatinine 1.19, Estim Creat Clear Calc 59.64, Est GFR (MDRD) Af Amer 78, Est GFR (MDRD) Non-Af 64, BUN/Creatinine Ratio 12.6, Glucose 141 H, Lactic Acid Cancelled, Calcium 9.2, Magnesium 1.8, Procalcitonin Cancelled, TSH 1.74, Ethyl Alcohol Cancelled 02/12/24 23:34: Lactic Acid 1.3, Procalcitonin 0.06, Urine Color Yellow, Urine Clarity Clear, Urine pH 6.0, Ur Specific [place] 1.015, Urine Protein 30 H, Urine Glucose (UA) Normal, Urine Ketones 50 H, Urine Occult Blood 25 H, Urine Nitrite Negative, Urine Bilirubin Negative, Urine Urobilinogen Normal, Ur Leukocyte Esterase Negative, Urine RBC 0 SEEN, Urine WBC 0 SEEN, Ur Squamous Epith Cells 0 SEEN, Urine Bacteria 0 SEEN, Urine Mucus 0 SEEN, Ur Drug Screen Comment , Ethyl Alcohol < 3.0 Imaging Radiology Impression Brain CT 02/12/24 22:04 IMPRESSION: Age-related and chronic changes of the brain. Electronically Signed: Logan Eaton DO at 23:34 EDT , Chest X-Ray 02/12/24 22:30 IMPRESSION: No radiographic evidence of acute cardiopulmonary disease. Electronically Signed: Logan Eaton DO at 0:00 EDT , Assessment & Plan Assessment/Plan (1) Adverse drug reaction: QUALIFIERS: Encounter type: initial encounter Qualified Code(s): T50.905A - Adverse effect of unspecified drugs, medicaments and biological substances, initial encounter (2) Intermittent confusion: (3) Poor appetite: (4) Adult failure to thrive: (5) Hypokalemia: (6) Status post lumbar spinal fusion: (7) Osteomyelitis of lumbar spine: (8) Recurrent low back pain: PLAN: Plan 1. Suspected adverse drug reaction to Cefepime with developing adult [id number] complicated by + UDS for cannabis - Admit to general medical floor under observation status. We will consult Dr. Wilkinson of infectious disease to see this patient on-rounds in the AM for possible alternatives agents with help appreciated in advance. Cannabis cessation will be strongly encouraged. TSH normal. 2. Laboratory evidence of hypokalemia of 3.2 mmol/L compounding #1 - Give supplemental KCl and then recheck level in the AM to ensure improvement. 3. Recent admission here in December 2023 with fevers and worsening back pain with workup eventually positive for recurrence of discitis and osteomyelitis; s/p L4-L5 anterolateral debridement with anterior fusion on 01/19/[address] Bradshaw of orthopedic-spinal surgery also followed by Dr. Wilkinson of infectious disease on IV Vancomycin and IV Ertapenem for the past 5 days with patient complaining of altered mental status, poor appetite, generalized weakness and his claiming she can no longer care for him at home - Noted with no active signs of recurrent infection at this time. 4. History of opioid dependence with history of cervical spondylosis; s/p cervical spine fusion (2020), history of spinal stenosis of the lumbosacral region, DDD with chronic debility plus fibromyalgia and previously diagnosed discitis and osteomyelitis in the setting of previous discectomy and laminectomy for herniated nucleus pulposus with repeat L4-L5 laminectomy on the Left with discectomy and decompression of the L5 nerve root by Dr. Godoy (07/2023) - Noted with patient's clinical decline enhanced by recent attempt at tapering of pain medications adding to the pathology of #1 - #3. 5. Essential hypertension - Continue home regimen as previous plus give IV Hydralazine prn for systolic blood pressure > 160 mmHg. 6. Hyperlipidemia - Resume statin. 7. DM-2; of unknown control - ADA diet. FSBS q. AC/HS plus SSI. Recent HgbA1c done. 8. CAD; s/p CABG x 3 (2011) - Noted. 9. Asthma - Stable with no evidence of acute flare. Continue prn nebulizers. 10. Smokeless tobacco abuse - Tobacco cessation will be strongly encouraged with Nicotine patch offered to control cravings. 11. OA; bilateral knee pain - Stable. 12. RLS - Stable. 13. History of BPH; with urinary obstruction - Noted. UA negative for infection noted on admission. 14. History of laparoscopic cholecystectomy (2022) - Noted. 15. History of COVID-19 (2020) - Noted. 16. Remote history of agent orange exposure - Noted. 17. IBS - Stable. 18. DVT prophylaxis - Lovenox 40 mg sq daily plus SCD's. Total time: Approximately 85 minutes. Charges/Coding Visit Charges OBSV E&M: [id number] Observ/hosp same date L2
[2024-02-13 00:24] LABS: Amphetamine Urine VISTA NEGATIVE (<1000 ng/mL); Barbiturate Urine VISTA NEGATIVE (< 200 ng/mL); Benzodiazepine Urine VISTA NEGATIVE (< 200 ng/mL); Cocaine Urine VISTA NEGATIVE (< 300 ng/mL); Ecstacy Urine VISTA NEGATIVE (< 500 ng/mL); Methadone Urine VISTA NEGATIVE (< 300 ng/mL); PCP Urine VISTA NEGATIVE (< 25 ng/mL); THC Urine VISTA POSITIVE (< 50 ng/mL); Vista UDS pH Range 5
--- NOTE | 2024-02-13 00:27 | EDS_ITS ---
HPI History of Present Illness Chief Complaint: Alt LOC Informant: patient and spouse/S.O. Narrative Narrative: Patient is a 68-year-old male with past medical history of hypertension hyperlipidemia and type 2 diabetes. 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 He is receiving IV antibiotics through a PICC line and states he is receiving ertapenem and vancomycin. states that over the past 2 or 3 days he has had poor oral intake as well as increased fatigue and is not ambulating. She states that he is not able to care for himself and she cannot provide the care he needs either and with his worsening fatigue she is concerned there may be some type of secondary infection or dehydration as he is not eating and drinking well and therefore brings him in for evaluation [facility] Medical History Bilirubinuria Contact with or exposure to other viral diseases Lumbosacral radiculopathy at L5 History of steroid therapy Smokeless tobacco use Tension headache Agent orange exposure Bilateral primary osteoarthritis of knee Wears hearing aid Cancer Alcohol use Diabetes Ambulates with cane Arthritis Prostate disease High cholesterol (~08/21/23) Restless legs Back pain Injury of head and neck Syncope History of IBS Shortness of breath on exertion History of pain when walking History of echocardiogram History of stress test Cardiology follow-up encounter Tear of medial meniscus of right knee Fibromyalgia BPH w urinary obs/LUTS Left knee DJD Right knee DJD Fusion of spine, cervical region Chondromalacia, right knee Chondromalacia, left knee Chondromalacia of both patellae COVID-19 virus detected (11/19/20) Nonrheumatic aortic (valve) stenosis with insufficiency Opioid dependence Obesity Asthma Hyperlipemia Essential (primary) hypertension Atherosclerotic heart disease of [place] coronary artery without angina pectoris Type 2 diabetes mellitus Spondylosis of lumbosacral region without myelopathy or radiculopathy Spinal stenosis of lumbosacral region Radiculopathy of lumbosacral region Degeneration of intervertebral disc of lumbosacral region Arthropathy of cervical facet joint Degeneration of cervical disc without myelopathy Cervical spondylosis Home Medications ?Medication ?Instructions ?Recorded ?Last Taken ?Type aspirin 81 mg tablet,delayed 81 mg PO DAILY HEART HEALTH 12/23/15 12/28/23 History release multivitamin 1 tab PO DAILY supplement 07/09/19 01/18/24 History handicap placard #1 ea 04/21/22 Unknown Rx blood sugar diagnostic (FreeStyle #100 ea 09/15/22 Unknown Rx Lite Strips) blood-glucose meter (FreeStyle #1 ea 09/15/22 Unknown Rx Lite Meter kit) fluticasone propionate 50 1 - 2 spray intranasal BID PRN 04/27/23 01/30/24 Rx mcg/actuation nasal allergies, congestion #16 grams spray,suspension atorvastatin 40 mg tablet 40 mg PO QHS CHOLESTEROL #90 tabs 08/21/23 01/30/24 Rx trazodone 50 mg tablet 50 - 100 mg (1 - 2 x 50 mg) PO QHS 08/21/23 01/30/24 Rx sleep #90 tabs metformin 500 mg tablet 500 mg PO BID DIABETIC 1 month #60 12/12/23 01/30/24 Rx tabs linaclotide 72 mcg capsule 72 mcg PO DAILY irritable colon 01/02/24 01/18/24 History (Linzess) gabapentin 400 mg capsule 400 mg PO TID PAIN #90 caps 01/03/24 01/30/24 Rx baclofen 5 mg tablet 5 mg PO BID PAIN 01/16/24 01/30/24 History cefepime 2 gram solution for 2 g IV Q8 39 days #117 ea 01/22/24 01/31/24 Rx injection vancomycin 1.5 gram intravenous 1.5 g IV Q12H 39 days 01/22/24 Unknown Rx solution ferrous sulfate 325 mg (65 mg 325 mg PO QODAY #14 tabs 01/23/24 01/30/24 Rx iron) tablet sennosides 8.6 mg-docusate sodium 2 tab PO BID PRN constipation 01/23/24 01/30/24 Rx 50 mg tablet (Stool days #40 tabs Softener-Stimulant Laxative) tamsulosin 0.4 mg capsule 0.4 mg PO DAILY@1730 #30 caps 01/23/24 01/30/24 Rx acetaminophen 500 mg tablet 1,000 mg PO Q8 PRN PAIN 01/31/24 01/30/24 History albuterol sulfate 90 mcg/actuation 1 - 2 puff inhalation Q4H PRN 01/31/24 Unknown History aerosol inhaler Wheezing oxycodone 5 mg tablet 2.5 - 5 mg (0.5 - 1 x 5 mg) PO Q6H 02/02/24 Unknown Rx PRN pain 10 days #40 tabs duloxetine 30 mg capsule,delayed 30 mg PO DAILY ANXIETY #90 caps 02/05/24 Unkn own Rx release Allergy/AdvReac Type Severity Reaction Status Date / Time adhesive tape Allergy Rash Verified 02/12/24 21:53 sertraline (From Zoloft) AdvReac Unknown Verified 02/12/24 21:53 Family History Brother Heart disease Myocardial infarction 60's CAD (coronary artery disease) Father Myocardial infarction 65 CAD (coronary artery disease) Mother HLD (hyperlipidemia) when son was 16 following MVA, healthy aside HLD. Surgical History Hx of laminectomy S/P laminectomy Status post discectomy for herniated nucleus pulposus History of lateral meniscus repair of right knee (~2021) Hx laparoscopic cholecystectomy (~11/2022) Hx of bilateral cataract extraction H/O cervical spine surgery (08/2020) History of herniorrhaphy History of carpal tunnel release History of back surgery History of left heart catheterization (09/09/11) H/O coronary artery bypass surgery (09/14/11) Social History household members: spouse Smoking Status: Current every day smoker tobacco type: smokeless tobacco Smokeless tobacco user: chewing tobacco alcohol intake: current alcohol intake frequency: a few times a month substance use type: does not use caffeine: Yes Type: coffee Number of servings: 2 ROS ROS ED Constitutional Constitutional ED: Denies chills or fever(s) Eyes Eyes: Denies change in vision ENT ENT ED: Denies rhinorrhea or sore throat Cardiovascular Cardiovascular: Denies chest pain, palpitations or racing heartbeat Respiratory/Chest Respiratory/Chest: Denies cough or dyspnea Gastrointestinal Gastrointestinal: Reports nausea; Denies abdominal pain, diarrhea or vomiting Genitourinary Genitourinary ED: Reports urinary frequency; Denies dysuria Musculoskeletal Musculoskeletal: Reports back pain and myalgias Integumentary Denies rash Neurologic Neurologic: Reports weakness; Denies headache(s) Hematologic/Lymphatic Hematologic/Lymphatic: Denies easy bleeding or easy bruising EXAM Physical Exam Const Vital Signs: 02/12/24 21:46 02/12/24 21:50 02/12/24 22:45 Temperature 97.9 F 97.9 F Temperature Source Oral Oral Pulse Rate 70 68 66 Respiratory Rate 20 H 18 18 Blood Pressure 149/79 H 149/79 H 164/76 H Blood Pressure Mean 102 102 105 Pulse Ox 100 96 97 Oxygen Delivery Method Room Air Room Air Room Air Oxygen Flow Rate (L/min) 02/12/24 23:39 02/13/24 00:13 02/13/24 00:45 Temperature 98.3 F 98.6 F Temperature Source Oral Oral Pulse Rate 72 64 Respiratory Rate 19 H 17 Blood Pressure 153/73 H 148/73 H Blood Pressure Mean 99 98 Pulse Ox 97 100 Oxygen Delivery Method Room Air Nasal Cannula Nasal Cannula Oxygen Flow Rate (L/min) 2 2 02/13/24 00:45 02/13/24 00:46 Temperature 98.6 F Temperature Source Pulse Rate 64 Respiratory Rate 17 Blood Pressure 148/73 H Blood Pressure Mean 98 Pulse Ox 100 100 Oxygen Delivery Method Nasal Cannula Oxygen Flow Rate (L/min) 2 Positive well nourished and well developed General Appearance ED: well developed and pallor HEENT Reports dry mucous membranes HEENT Narrative: Mucous membranes are dry and tacky No tongue or lip swelling no oral lesions no airway edema or compromise No secondary findings in the posterior pharynx to suggest infection Mouth ED: Yes dry mucous membranes Mouth: dry mucous membranes Eyes PERRL and EOMs intact bilaterally General Eye ED: Yes pale conjunctiva; Negative for scleral icterus Neck supple Neck Narrative: No nuchal rigidity or meningeal signs noted Resp normal respiratory effort and clear to auscultation bilaterally Resp Narrative: Breath sounds are diminished throughout but overall clear to auscultation without nasal flaring retractions tachypnea or accessory muscle use Cardio regular rate and regular rhythm Rate: other Other Details: Radial and carotid pulses are equal and symmetric GI non-tender, non-distended and no masses GI Narrative: Abdomen is soft nontender nondistended with hypoactive bowel sounds. No voluntary guarding or rigidity or pulsatile mass No peritoneal signs or fluid wave noted Patient has a postoperative incision to the lateral aspect of the left sided abdomen that is clean dry and intact without secondary changes to suggest infection Auscultation: hypoactive bowel sounds Palpation: soft Back/Spine Back/Spine Narrative: Patient has postoperative incisions to the bilateral paralumbar region of his back that are clean dry and intact without secondary changes to suggest infection Extremity normal to inspection Extremity Narrative: No bony deformity or joint effusion noted Neuro oriented x3, CN's II-XII intact bilaterally and no sensory deficits noted Neuro Narrative: Patient has GCS of 14; he rests with his eyes closed but will wake to voice He is alert and oriented to person place and time. He answers questions appropriately He has bilateral weakness to his legs with the inability to lift them off the bed but he can flex and extend them without difficulty NIH stroke scale score of 0 Sensorium / Orientation: alert Psych Psych Narrative: Patient has a flat affect Skin No skin turgor normal Skin Narrative: Postoperative wounds that are clean dry and intact without secondary changes to suggest infection Skin does appear pale in color but capillary refills less than 3 seconds Skin turgor is increased General Skin Exam: pallor; Negative for jaundice MDM MDM MDM Narrative Medical decision making narrative: Patient arrived to the ER with stable vitals. Initial complaint was altered mental status but he awakes to voice he is alert and oriented to person place and time and answers questions appropriately. He is more failure to thrive with generalized weakness. In order to ensure that he does not have acute kidney injury or severe electrolyte abnormality or acute blood loss anemia or potential secondary infection such as UTI or pneumonia as a cause of his symptoms I did elect to perform basic laboratory studies with chest x-ray. A head CT was ordered as well secondary to report of altered level of consciousness by . CT revealed no acute finding chest x-ray revealed no signs of pneumonia and blood work showed chronic anemia at baseline with hypokalemia and mild dehydration but no acute kidney injury or signs of UTI. Also without fever or white count or elevation to his lactic or procalcitonin concern for secondary postoperative infection is low. At this time the patient cannot stand and ambulate and he is not safe for discharge secondary to his weakness. He was given IV fluids secondary to his physical exam showing dehydration and as he is unable to care for himself at home the hospitalist was contacted to admit the patient to discuss potential placement in longterm versus inpatient rehab. History & Record Review Discussion w/independent historian: Patient and Significant other Lab Data Attestation: I reviewed the patient's lab results. Labs: Laboratory Results - last 24 hr 02/12/24 02/12/24 22:17 23:34 WBC 7.2 RBC 3.51 L Hgb 10.0 L Hct 30.2 L MCV 86.0 MCH 28.5 MCHC 33.1 RDW Std Deviation 41.9 RDW Coeff of Frankie 13.5 Plt Count 247 MPV 8.6 Immature Gran % (Auto) 0.300 Neut % (Auto) 81.0 H Lymph % (Auto) 12.0 L [place] % (Auto) 6.3 Eos % (Auto) 0.0 Baso % (Auto) 0.4 Absolute Neuts (auto) 5.8 Absolute Lymphs (auto) 0.86 Nucleated RBC % 0 Sodium 132 L Potassium 3.2 L Chloride 97 L Carbon Dioxide 23.0 Anion Gap 12 BUN 15 Creatinine 1.19 Estim Creat Clear Calc 59.64 Est GFR (MDRD) Af Amer 78 Est GFR (MDRD) Non-Af 64 BUN/Creatinine Ratio 12.6 Glucose 141 H Lactic Acid Cancelled 1.3 Calcium 9.2 Magnesium 1.8 Procalcitonin Cancelled 0.06 TSH 1.74 Urine Color Yellow Urine Clarity Clear Urine pH 6.0 Ur Specific [place] 1.015 Urine Protein 30 H Urine Glucose (UA) Normal Urine Ketones 50 H Urine Occult Blood 25 H Urine Nitrite Negative Urine Bilirubin Negative Urine Urobilinogen Normal Ur Leukocyte Esterase Negative Urine RBC 0 SEEN Urine WBC 0 SEEN Ur Squamous Epith Cells 0 SEEN Urine Bacteria 0 SEEN Urine Mucus 0 SEEN Random Vancomycin 24.6 H Urine Opiates Screen NEGATIVE Urine Methadone Screen NEGATIVE Ur Barbiturates Screen NEGATIVE Ur Phencyclidine Scrn NEGATIVE Ur Amphetamines Screen NEGATIVE MDMA (Ecstasy) Screen NEGATIVE U Benzodiazepines Scrn NEGATIVE Urine Cocaine Screen NEGATIVE U Cannabinoids Screen POSITIVE H Ur Drug Screen Comment Ethyl Alcohol Cancelled < 3.0 Radiography Diagnostic Testing: Clinical Impression(s) from Imaging Studies Brain CT 02/12/24 22:04 IMPRESSION: Age-related and chronic changes of the brain. Electronically Signed: Logan Eaton DO at 23:34 EDT Reading Location ID and State: [facility] / [place] Tel [phone], Service support , Chest X-Ray 02/12/24 22:30 IMPRESSION: No radiographic evidence of acute cardiopulmonary disease. Electronically Signed: Logan Eaton DO at 0:00 EDT Reading Location ID and State: [facility] / [place] Tel [phone], Service support , Chest x-ray as interpreted by the emergency medicine physician reveals no acute infiltrate or pneumothorax or pleural effusion Discharge Plan Dx/Rx/DC Orders Clinical Impression: Type 2 diabetes mellitus, History of osteomyelitis, Essential (primary) hypertension, Adult failure to thrive, Hypokalemia, Mild dehydration Disposition Disposition: Acute Care Hospital [facility] Discharge Date/Time: 02/13/24 01:23
[2024-02-13 00:57] LABS: Vancomycin, Random Level 24.6 ug/mL (0.0-15.0)
[2024-02-13] MEDS: oxyCODONE 5 MG Tablet PO (05:54)
[2024-02-13] MEDS: Potassium Chloride Oral Tablet 20 MEQ 60 MEQ PO (05:54)
[2024-02-13] MEDS: Gabapentin 400 MG Capsule PO ×3 (05:54→21:06)
[2024-02-13 07:32] LABS: Hemoglobin 9.2 g/dL (13.0-16.5); Mean Corp Hgb Conc 34.1 g/dL (32-36); Mean Corpuscular Hgb 29.1 pg (27.0-32.0); Mean Corpuscular Volume 85.4 fL (80-94); Mean Platelet Vol. 8.2 fl (6.2-12.0); Platelet Count 198 K/mm3 (150-450); RBC Distribution Width CV 13.4 % (11.6-14.6); RBC Distribution Width SD 42.1 fl (35.1-43.9); Red Blood Count 3.16 M/mm3 (4.6-6.2); White Blood Count 6.4 K/mm3 (4.4-11.0)
[2024-02-13 08:33] LABS: Albumin, Serum 2.9 g/dL (3.2-5.0); Anion Gap 10 (5-15); BUN 18 mg/dL (7-18); BUN/Creat Ratio 19.6 RATIO (10-20); Calcium,Total 8.6 mg/dL (8.5-10.1); Chloride 103 mmol/L (98-107); Creatinine, Serum 0.92 mg/dL (0.70-1.30); EST Glomerular Filtration Rate 86 mL/min (>60); Est Glom Filt Rate - Afr Amer 104 mL/min (>60); Estimated Creatinine Clearance 77.14 ml/min; Glucose 112 mg/dL (74-106); Potassium 3.2 mmol/L (3.5-5.1); Sodium Level 136 mmol/L (136-145)
[2024-02-13] MEDS: Aspirin E.C. 81 MG Tablet PO (08:58)
[2024-02-13] MEDS: Baclofen 10 MG Tablet 5 MG PO ×2 (08:58→21:06)
[2024-02-13] MEDS: Ferrous Sulfate 325 MG Tablet PO (08:58)
[2024-02-13] MEDS: Multivitamins,Therapeutic Tablet 1 TABLET PO (08:58)
[2024-02-13] MEDS: DULoxetine Hcl 30 MG Capsule PO (08:58)
[2024-02-13] MEDS: Menthol/Lanolin/Calamine/Znox 113 GM Tube 1 APPLIC TOPICAL ×2 (08:59→19:52)
[2024-02-13] MEDS: Nystatin Powder 15gm Bottle 1 APPLIC TOPICAL ×2 (09:07→21:06)
[2024-02-13] MEDS: Glucerna Shake 120 ML LIQUID PO ×3 (09:07→18:02)
[2024-02-13] MEDS: Enoxaparin 40 MG/0.4 ML Syringe SC (09:08)
[2024-02-13] MEDS: Acetaminophen 325 MG Tablet 650 MG PO ×2 (09:08→19:51)
[2024-02-13] MEDS: 0.9% Saline Lock 10 ML Syringe IV ×2 (11:04→19:51)
--- NOTE | 2024-02-13 11:54 | CASEMGMT ---
RN CRISTIANE Assessment Face to Face with patient for initial transition planning/care coordination assessment. RN CM introduced self and role at [facility], pt voices understanding. Pt is A&Ox4 and is resting comfortably in the chair and is calm. Pt at bedside. Care providers, pharmacy, and demographics verified. Admitting dx: Adult FTT LACE Strata: 3 PCP: Marlen Bear Specialists: Dr. Bradshaw, Dr. Wilkinson Preferred Pharmacy: [facility] Insurance: [facility] Care Prescription Benefit: Yes LNOK: Alethea Bates (W) Living Arrangements: Pt lives with his in a 2 story home with a FFSU and 2 steps to enter ADLs/IADLs: Ind with ADLs. Mod ind with IADLs. assists Transportation: Self, DME: B[employer] and supplies. BP Monitor. Cane, walker, Shower chair, associate embalmer/funeral director HHC/SNF: Pt is active with [facility] (SN) and [facility] for home IV ATBs. Denies SNF history Pt?s goal: Return to PLOF Plan: TBD. Anticipate Home with the continuation of HHC and IV ATB vs SNF. PT is recommending skilled therapy after DC. Pt and pt state that they would be interested in viewing a list of local in-network SNF options. SW updated and to provide list. CM and SW to follow pt progression in the hospital to see what the pt best qualifies for moving forward. Antonino Squires RN, CM
--- NOTE | 2024-02-13 13:01 | PCM.CONS.GEN ---
Assessment & Plan Assessment/Plan (1) Osteomyelitis of lumbar spine: PLAN: At this point will be reasonable to discontinue antibiotics and observe off antibiotics, it is unclear if this is related to prolonged use of cefepime. But I would observe off antibiotics. Discussed with at the bedside. HPI Consult Data Date of Consult: 02/13/24 HPI Narrative Reason for Consultation: Generalized weakness and failure to thrive concern antibiotic drug reaction HPI Narrative: JARET FIGUEROA, is a 68 M who presents complicated past medical history of diabetes mellitus, heart disease status post CABG, chronic spine disease and underwent orthopedic surgery of the spine and a prolonged course of antibiotics earlier this year in October/November and more recently over the past month. I reviewed his records as well as his intraoperative cultures from January 18. Patient was admitted because of failure to thrive and apparently was having fevers at home. He is currently responsive but generally weak. No cardiopulmonary distress no diarrhea. No skin lesions or rashes. Microbiology data from previous hospitalizations reviewed [facility] Medical History Bilirubinuria Contact with or exposure to other viral diseases Lumbosacral radiculopathy at L5 History of steroid therapy Smokeless tobacco use Tension headache Agent orange exposure Bilateral primary osteoarthritis of knee Wears hearing aid Cancer Alcohol use Diabetes Ambulates with cane Arthritis Prostate disease High cholesterol (~08/21/23) Restless legs Back pain Injury of head and neck Syncope History of IBS Shortness of breath on exertion History of pain when walking History of echocardiogram History of stress test Cardiology follow-up encounter Tear of medial meniscus of right knee Fibromyalgia BPH w urinary obs/LUTS Left knee DJD Right knee DJD Fusion of spine, cervical region Chondromalacia, right knee Chondromalacia, left knee Chondromalacia of both patellae COVID-19 virus detected (11/19/20) Nonrheumatic aortic (valve) stenosis with insufficiency Opioid dependence Obesity Asthma Hyperlipemia Essential (primary) hypertension Atherosclerotic heart disease of [place] coronary artery without angina pectoris Type 2 diabetes mellitus Spondylosis of lumbosacral region without myelopathy or radiculopathy Spinal stenosis of lumbosacral region Radiculopathy of lumbosacral region Degeneration of intervertebral disc of lumbosacral region Arthropathy of cervical facet joint Degeneration of cervical disc without myelopathy Cervical spondylosis Home Medications ?Medication ?Instructions ?Recorded ?Last Taken ?Type aspirin 81 mg tablet,delayed 81 mg PO DAILY HEART HEALTH 12/23/15 12/28/23 History release multivitamin 1 tab PO DAILY supplement 07/09/19 01/18/24 History handicap placard #1 ea 04/21/22 Unknown Rx blood sugar diagnostic (FreeStyle #100 ea 09/15/22 Unknown Rx Lite Strips) blood-glucose meter (FreeStyle #1 ea 09/15/22 Unknown Rx Lite Meter kit) fluticasone propionate 50 1 - 2 spray intranasal BID PRN 04/27/23 01/30/24 Rx mcg/actuation nasal allergies, congestion #16 grams spray,suspension atorvastatin 40 mg tablet 40 mg PO QHS CHOLESTEROL #90 tabs 08/21/23 01/30/24 Rx trazodone 50 mg tablet 50 - 100 mg (1 - 2 x 50 mg) PO QHS 08/21/23 01/30/24 Rx sleep #90 tabs metformin 500 mg tablet 500 mg PO BID DIABETIC 1 month #60 12/12/23 01/30/24 Rx tabs linaclotide 72 mcg capsule 72 mcg PO DAILY irritable colon 01/02/24 01/18/24 History (Linzess) gabapentin 400 mg capsule 400 mg PO TID PAIN #90 caps 01/03/24 01/30/24 Rx baclofen 5 mg tablet 5 mg PO BID PAIN 01/16/24 01/30/24 History cefepime 2 gram solution for 2 g IV Q8 39 days #117 ea 01/22/24 01/31/24 Rx injection vancomycin 1.5 gram intravenous 1.5 g IV Q12H 39 days 01/22/24 Unknown Rx solution ferrous sulfate 325 mg (65 mg 325 mg PO QODAY #14 tabs 01/23/24 01/30/24 Rx iron) tablet sennosides 8.6 mg-docusate sodium 2 tab PO BID PRN constipation 10 01/23/24 01/30/24 Rx 50 mg tablet (Stool days #40 tabs Softener-Stimulant Laxative) tamsulosin 0.4 mg capsule 0.4 mg PO DAILY@1730 #30 caps 01/23/24 01/30/24 Rx acetaminophen 500 mg tablet 1,000 mg PO Q8 PRN PAIN 01/31/24 01/30/24 History albuterol sulfate 90 mcg/actuation 1 - 2 puff inhalation Q4H PRN 01/31/24 Unknown History aerosol inhaler Wheezing oxycodone 5 mg tablet 2.5 - 5 mg (0.5 - 1 x 5 mg) PO Q6H 02/02/24 Unknown Rx PRN pain 10 days #40 tabs duloxetine 30 mg capsule,delayed 30 mg PO DAILY ANXIETY #90 caps 02/05/24 Unknown Rx release Allergy/AdvReac Type Severity Reaction Status Date / Time adhesive tape Allergy Rash Verified 02/12/24 21:53 sertraline (From Zoloft) AdvReac Unknown Verified 02/12/24 21:53 Family History Brother Heart disease Myocardial infarction 60's CAD (coronary artery disease) Father Myocardial infarction 65 CAD (coronary artery disease) Mother HLD (hyperlipidemia) when son was 16 following MVA, healthy aside HLD. Surgical History Hx of laminectomy S/P laminectomy Status post discectomy for herniated nucleus pulposus History of lateral meniscus repair of right knee (~2021) Hx laparoscopic cholecystectomy (~11/2022) Hx of bilateral cataract extraction H/O cervical spine surgery (08/2020) History of herniorrhaphy History of carpal tunnel release History of back surgery History of left heart catheterization (09/09/11) H/O coronary artery bypass surgery (09/14/11) Social History household members: spouse Smoking Status: Current every day smoker tobacco type: smokeless tobacco Smokeless tobacco user: chewing tobacco alcohol intake: current alcohol intake frequency: a few times a month substance use type: does not use caffeine: Yes Type: coffee Number of servings: 2 ROS ROS Narrative As stated in history of present illness others negative Physical Exam Narrative Alert responsive does not appear acutely ill. Lungs are clear heart exam S1-S2 with systolic murmur best heard at the base abdomen soft nontender. Back incision looks benign Lab / Micro Data 02/13/24 06:49 02/13/24 06:49 Labs: Laboratory Results - last 24 hr 02/12/24 22:17: WBC 7.2, RBC 3.51 L, Hgb 10.0 L, Hct 30.2 L, MCV 86.0, MCH 28.5, MCHC 33.1, RDW Std Deviation 41.9, RDW Coeff of Frankie 13.5, Plt Count 247, MPV 8.6, Immature Gran % (Auto) 0.300, Neut % (Auto) 81.0 H, Lymph % (Auto) 12.0 L, [place] % (Auto) 6.3, Eos % (Auto) 0.0, Baso % (Auto) 0.4, Absolute Neuts (auto) 5.8, Absolute Lymphs (auto) 0.86, Nucleated RBC % 0, Sodium 132 L, Potassium 3.2 L, Chloride 97 L, Carbon Dioxide 23.0, Anion Gap 12, BUN 15, Creatinine 1.19, Estim Creat Clear Calc 59.64, Est GFR (MDRD) Af Amer 78, Est GFR (MDRD) Non-Af 64, BUN/Creatinine Ratio 12.6, Glucose 141 H, Lactic Acid Cancelled, Calcium 9.2, Magnesium 1.8, Procalcitonin Cancelled, TSH 1.74, Ethyl Alcohol Cancelled 02/12/24 23:34: Lactic Acid 1.3, Procalcitonin 0.06, Urine Color Yellow, Urine Clarity Clear, Urine pH 6.0, Ur Specific [place] 1.015, Urine Protein 30 H, Urine Glucose (UA) Normal, Urine Ketones 50 H, Urine Occult Blood 25 H, Urine Nitrite Negative, Urine Bilirubin Negative, Urine Urobilinogen Normal, Ur Leukocyte Esterase Negative, Urine RBC 0 SEEN, Urine WBC 0 SEEN, Ur Squamous Epith Cells 0 SEEN, Urine Bacteria 0 SEEN, Urine Mucus 0 SEEN, Random Vancomycin 24.6 H, Urine Opiates Screen NEGATIVE, Urine Methadone Screen NEGATIVE, Ur Barbiturates Screen NEGATIVE, Ur Phencyclidine Scrn NEGATIVE, Ur Amphetamines Screen NEGATIVE, MDMA (Ecstasy) Screen NEGATIVE, U Benzodiazepines Scrn NEGATIVE, Urine Cocaine Screen NEGATIVE, U Cannabinoids Screen POSITIVE H, Ur Drug Screen Comment , Ethyl Alcohol < 3.0 02/13/24 06:49: WBC 6.4, RBC 3.16 L, Hgb 9.2 L, Hct 27.0 L, MCV 85.4, MCH 29.1, MCHC 34.1, RDW Std Deviation 42.1, RDW Coeff of Frankie 13.4, Plt Count 198, MPV 8.2, Sodium 136, Potassium 3.2 L, Chloride 103, Carbon Dioxide 23.0, Anion Gap 10, BUN 18, Creatinine 0.92, Estim Creat Clear Calc 77.14, Est GFR (MDRD) Af Amer 104, Est GFR (MDRD) Non-Af 86, BUN/Creatinine Ratio 19.6, Glucose 112 H, Calcium 8.6, Albumin 2.9 L, Prealbumin 23.0 Imaging Radiology Impression Brain CT 02/12/24 22:04 IMPRESSION: Age-related and chronic changes of the brain. Electronically Signed: Logan Eaton DO at 23:34 EDT , Chest X-Ray 02/12/24 22:30 IMPRESSION: No radiographic evidence of acute cardiopulmonary disease. Electronically Signed: Logan Eaton DO at 0:00 EDT ,
--- NOTE | 2024-02-13 13:30 | CASEMGMT ---
Discharge Planning A list of?SNF providers including quality and resource use data and consistent with the patient's preferred geographic region, medical needs, and insurance network was created in [employer] Guide.? This list was provided to the SW. Denisha Salazar Discharge Planning Asst.
--- NOTE | 2024-02-13 13:44 | CASEMGMT ---
Social Work SW met w/pt and in room in regard to discharge plan. SW spoke w/them about going somewhere for rehab rather than returning home. Pt is not certain what he wants to do, he states he is not awake enough to make any decisions. SW provided the list of alf facilities to pt and , explained the referral process to them. states she wants to give it 24 hours before deciding the plan. She states pt is just off of the antibiotics and thinks he will feel better tomorrow after being off the medication for a day. SW explained will follow up w/pt and tomorrow regarding plan. They did tell SW they would not want pt to go to TCU however, should SNF be needed. SW will continue to follow, SW/CM to follow up tomorrow regarding SNF vs home w/HHC. PAMELA Ag
--- NOTE | 2024-02-13 14:48 | CASEMGMT ---
Discharge Planning Patient is active with [facility]. Resumption referral sent via [facility]. Denisha Salazar DC Planning Asst.
--- NOTE | 2024-02-13 15:52 | CASEMGMT ---
Met with patient to complete STANTON form. STANTON form explained to patient who voiced understanding and signed form. Original form placed in pt?s chart and copy provided to patient. Denisha Salazar, Discharge Planning Asst
[2024-02-13] MEDS: Tamsulosin HCl 0.4 MG Capsule PO (18:02)
[2024-02-13] MEDS: traZODone 50 MG Tablet PO (21:06)
[2024-02-13] MEDS: Atorvastatin Calcium 40 MG Tablet PO (21:06)
[2024-02-14] VITALS (7 sets, daily range): BP systolic 123–134; BP diastolic 78–81; PULSE 66–73; RESP 16–18; TEMP 37.1–38.1; O2SAT 98–100
[2024-02-14] MEDS: Acetaminophen 325 MG Tablet 650 MG PO ×2 (04:22→21:36)
[2024-02-14] MEDS: Gabapentin 400 MG Capsule PO ×3 (05:38→21:36)
[2024-02-14 06:51] LABS: Absolute Lymphocyte Count 1.14 X10^3/uL (0.83-4.51); Absolute Neutrophil Count 3.4 X10^3/uL (2.0-7.7); Basophil# 0.03 X10^3/uL; Basophil% 0.6 % (0-1); Eosinophil# 0.02 X10^3/uL; Eosinophils% 0.4 % (0-5); Hematocrit 26.9 % (40-54); Lymphocyte # 1.14 X10^3/ul (0.83-4.51); Lymphocyte % 22.1 % (19-41); Mean Corp Hgb Conc 33.5 g/dL (32-36); Mean Corpuscular Hgb 28.6 pg (27.0-32.0); Mean Corpuscular Volume 85.4 fL (80-94); Mean Platelet Vol. 8.7 fl (6.2-12.0); Monocyte# 0.57 X10^3/uL; Monocyte% 11.1 % (0-10); NRBC Flagged by Analyzer 0 % (0-5); Neutrophil # 3.37 X10^3/uL (2.7-7.7); Neutrophil % 65.4 % (47-70); Platelet Count 204 K/mm3 (150-450); RBC Distribution Width CV 13.3 % (11.6-14.6); RBC Distribution Width SD 41.4 fl (35.1-43.9); Red Blood Count 3.15 M/mm3 (4.6-6.2); White Blood Count 5.2 K/mm3 (4.4-11.0)
[2024-02-14 08:11] LABS: Anion Gap 10 (5-15); BUN 20 mg/dL (7-18); BUN/Creat Ratio 20.5 RATIO (10-20); Calcium,Total 8.5 mg/dL (8.5-10.1); Chloride 99 mmol/L (98-107); Creatinine, Serum 0.97 mg/dL (0.70-1.30); EST Glomerular Filtration Rate 81 mL/min (>60); Est Glom Filt Rate - Afr Amer 98 mL/min (>60); Estimated Creatinine Clearance 73.17 ml/min; Glucose 100 mg/dL (74-106); Potassium 3.2 mmol/L (3.5-5.1); Sodium Level 132 mmol/L (136-145)
--- NOTE | 2024-02-14 09:00 | PCM.PN.HOSP ---
Subjective Subjective Doing well, no issues overnight Objective Data Objective Data Vital Signs: Vital Signs Temp Pulse Resp BP Pulse Ox O2 Del Method O2 Flow Rate 99.4 F H 73 18 134/81 H 99 Room Air 2 02/14/24 06:49 02/14/24 04:00 02/14/24 04:00 02/14/24 04:00 02/14/24 04:00 02/14/24 04:00 02/13/24 00:45 Oxygen Flow Rate (L/min) 2 Oxygen Delivery Method Room Air Weight: 163 lb 9.328 oz Body Mass Index (BMI) 23.4 Intake & Output: Intake and Output for Last 24 Hours 02/13/24 02/14/24 02/15/24 03:59 03:59 03:59 Intake Total 1300 / 1300 1150 / 1150 Output Total 700 / 700 500 / 500 Balance 1300 / 1300 450 / 450 -500 / -500 Medical Nutrition Assessment Dietitian: Malnutrition Criteria Met Start: 02/13/24 15:28 Freq: Status: Active Protocol: Document 02/13/24 15:29 RMA (Rec: 02/13/24 15:29 RMA [id number]) Nutrition Malnutrition Evidence of Malnutrition Exists Yes Malnutrition (severe): Chronic Evidenced By Suboptimal Energy Intake ( Severe),Weight Loss (Severe) Clinical Problem Chronic Disease or Condition Related Malnutrition Etiology severe protein-calorie malnutrition in the context of chronic disease and debility related to inadequate oral/ energy intake Signs/Symptoms as evidenced by unintentional weight loss ~8-10% x past 2-4 months and ~25-26% x past 1 year; oral intake meeting less than 50% estimated nutrition needs x past 3-6 months Status Active Problem Recommendation Dietitian Recommendations/Changes In view of signs/symptoms of severe malnutrition, will liberalize diet to regular and monitor need to restrict carbohydrates if blood glucose rises. Will continue 120mL glucerna shake 4 times per day w/ medpass as ordered. Will add 240mL ensure plus high protein w/ breakfast. May need to consider enteral nutrition support if PO remains poor/inadequate and weight continues to decline. Lab / Micro Data 02/14/24 05:51 02/14/24 05:51 Labs: Laboratory Results - last 24 hr 02/14/24 05:51: WBC 5.2, RBC 3.15 L, Hgb 9.0 L, Hct 26.9 L, MCV 85.4, MCH 28.6, MCHC 33.5, RDW Std Deviation 41.4, RDW Coeff of Frankie 13.3, Plt Count 204, MPV 8.7, Immature Gran % (Auto) 0.400, Neut % (Auto) 65.4, Lymph % (Auto) 22.1, [place] % (Auto) 11.1 H, Eos % (Auto) 0.4, Baso % (Auto) 0.6, Absolute Neuts (auto) 3.4, Absolute Lymphs (auto) 1.14, Nucleated RBC % 0, Sodium 132 L, Potassium 3.2 L, Chloride 99, Carbon Dioxide 23.0, Anion Gap 10, BUN 20 H, Creatinine 0.97, Estim Creat Clear Calc 73.17, Est GFR (MDRD) Af Amer 98, Est GFR (MDRD) Non-Af 81, BUN/Creatinine Ratio 20.5 H, Glucose 100, Calcium 8.5 Physical Exam Narrative General: Resting comfortably, Oriented x3, Cooperative, No apparent distress HEENT: Atraumatic, PERRLA, EOMI, Normocephalic Oral: Moist Mucosa Neck: Supple, No JVD Lungs: Diminished, Normal air movement, No rhonchi, No wheeze, No rales Cardiovascular: Regular rate, Regular Rhythm, Normal S1, Normal S2, No murmurs Abdomen: Soft, Non Tender, Non-Distended, No Hepato-splenomegaly Extremities: No edema, Capillary Refill Less than 3 Seconds Skin: No rashes, No breakdown Musculoskeletal: No Tenderness to Palpation of Joints or Extremities Neurological: No focal neurological deficits, Motor Exam 5/5 strength throughout, Sensory exam intact to light touch and pain Psych/Mental Status: Flat Assessment & Plan Assessment/Plan (1) Adverse drug reaction: QUALIFIERS: Encounter type: initial encounter Qualified Code(s): T50.905A - Adverse effect of unspecified drugs, medicaments and biological substances, initial encounter (2) Intermittent confusion: (3) Poor appetite: (4) Adult failure to thrive: PLAN: Plan 1. Possible adverse drug reaction to cefepime with adult failure to thrive and debility and inability to complete ADLs/spinal osteomyelitis and discitis ? She did have a positive cannabis on the urine drug screen//history of spinal osteomyelitis ? Appreciate infectious disease, will discontinue antibiotics and monitor 2. Hyperlipidemia ? Stable ? Continue with Lipitor 3. Anxiety/depression ? Stable ? Continue with his home medications 4. DM2 ? Stable ? Will hold his metformin ? Sliding scale insulin ? Accu-Cheks ACHS ? Will monitor and make adjustments as necessary DVT: Lovenox Charges/Coding Visit Charges Inpatient E&M: 18605 Subs Hosp L2
[2024-02-14] MEDS: Menthol/Lanolin/Calamine/Znox 113 GM Tube 1 APPLIC TOPICAL ×2 (09:13→20:57)
[2024-02-14] MEDS: Multivitamins,Therapeutic Tablet 1 TABLET PO (09:13)
[2024-02-14] MEDS: Aspirin E.C. 81 MG Tablet PO (09:14)
[2024-02-14] MEDS: oxyCODONE 5 MG Tablet PO (09:14)
[2024-02-14] MEDS: DULoxetine Hcl 30 MG Capsule PO (09:14)
[2024-02-14] MEDS: Baclofen 10 MG Tablet 5 MG PO ×2 (09:14→21:36)
[2024-02-14] MEDS: Nystatin Powder 15gm Bottle 1 APPLIC TOPICAL ×2 (09:15→20:58)
[2024-02-14] MEDS: Enoxaparin 40 MG/0.4 ML Syringe SC (09:15)
[2024-02-14 11:45] LABS: Bedside Glucose 112 mg/dL (74-106)
--- NOTE | 2024-02-14 13:33 | PCM.PN.ID ---
ID ID: Route of nutrition/ use of supplements: [] Nutritional Intake: [] IV Site: [] Gan Catheter: [] Patient is more alert and responsive today. Low-grade fevers overnight. No significant back pain. Relatively stable off antimicrobial therapy. Wants to ambulate with physical therapy. On exam he is alert does not appear toxic heart exam S1-S2 lungs are clear his back incision is intact. Assessment & Plan Assessment/Plan (1) History of discitis: PLAN: At this point would observe off antibiotic therapy. If the patient is discharged would remove the PICC line and observe off antibiotics.
[2024-02-14] MEDS: Glucerna Shake 120 ML LIQUID PO ×2 (14:25→17:46)
--- NOTE | 2024-02-14 14:55 | CASEMGMT ---
Pt was recently seen by PT. PT noted that they are recommending HH/OP Tx for the pt. Pt is currently active with [facility] HH services. This RN CM to pt room at this time. Pt states that he would like to DC home once he is medically ready and is refusing SNF needs. Pt states that he feels safe discharging home with his and the continuation of HHC once ready. Pt states that he would like to have PT and OT at home added as well. TC to [facility] and Cristy notified. Cristy states that they will be able to resume care on Monday (02/18) for now. Pt and pt updated and are happy with this plan. CM to follow.
[2024-02-14] MEDS: Tamsulosin HCl 0.4 MG Capsule PO (16:26)
[2024-02-14 16:45] LABS: Bedside Glucose 108 mg/dL (74-106)
[2024-02-14] MEDS: 0.9% Saline Lock 10 ML Syringe IV ×2 (21:00→21:37)
[2024-02-14] MEDS: Ondansetron 4 MG/2 ML Vial IV (21:00)
[2024-02-14] MEDS: Atorvastatin Calcium 40 MG Tablet PO (21:36)
[2024-02-14] MEDS: traZODone 50 MG Tablet PO (21:36)
[2024-02-14 22:00] LABS: Bedside Glucose 118 mg/dL (74-106)
[2024-02-15] MEDS: oxyCODONE 5 MG Tablet PO ×2 (03:47→20:58)
[2024-02-15 03:48] VITALS: BP 118/69; PULSE 67; RESP 16; TEMP 37.4; O2SAT 98
[2024-02-15] MEDS: Gabapentin 400 MG Capsule PO ×3 (06:05→20:58)
[2024-02-15] MEDS: Acetaminophen 325 MG Tablet 650 MG PO ×2 (06:07→14:24)
[2024-02-15 06:27] LABS: Bedside Glucose 100 mg/dL (74-106)
[2024-02-15 08:01] VITALS: BP 137/89; PULSE 71; RESP 18; TEMP 37.5; O2SAT 97
[2024-02-15] MEDS: Ferrous Sulfate 325 MG Tablet PO (08:03)
[2024-02-15] MEDS: Multivitamins,Therapeutic Tablet 1 TABLET PO (08:03)
[2024-02-15] MEDS: Menthol/Lanolin/Calamine/Znox 113 GM Tube 1 APPLIC TOPICAL ×2 (08:04→21:04)
[2024-02-15] MEDS: Baclofen 10 MG Tablet 5 MG PO ×2 (08:04→20:59)
[2024-02-15] MEDS: Enoxaparin 40 MG/0.4 ML Syringe SC (08:04)
[2024-02-15] MEDS: Aspirin E.C. 81 MG Tablet PO (08:04)
[2024-02-15] MEDS: DULoxetine Hcl 30 MG Capsule PO (08:04)
[2024-02-15] MEDS: Nystatin Powder 15gm Bottle 1 APPLIC TOPICAL ×2 (08:04→21:04)
[2024-02-15 08:37] LABS: Absolute Lymphocyte Count 1.22 X10^3/uL (0.83-4.51); Basophil# 0.04 X10^3/uL; Basophil% 0.8 % (0-1); Eosinophil# 0.08 X10^3/uL; Eosinophils% 1.6 % (0-5); Hematocrit 29.5 % (40-54); Hemoglobin 9.6 g/dL (13.0-16.5); Lymphocyte # 1.22 X10^3/ul (0.83-4.51); Lymphocyte % 25.1 % (19-41); Mean Corp Hgb Conc 32.5 g/dL (32-36); Mean Corpuscular Hgb 28.6 pg (27.0-32.0); Mean Corpuscular Volume 87.8 fL (80-94); Mean Platelet Vol. 9.4 fl (6.2-12.0); Monocyte# 0.54 X10^3/uL; Monocyte% 11.1 % (0-10); NRBC Flagged by Analyzer 0 % (0-5); Neutrophil # 2.97 X10^3/uL (2.7-7.7); Neutrophil % 61.2 % (47-70); POSITIVE COUNT YES; Platelet Count 187 K/mm3 (150-450); RBC Distribution Width CV 13.3 % (11.6-14.6); Red Blood Count 3.36 M/mm3 (4.6-6.2); White Blood Count 4.9 K/mm3 (4.4-11.0)
[2024-02-15 08:51] LABS: Anion Gap 8 (5-15); BUN 19 mg/dL (7-18); BUN/Creat Ratio 20.2 RATIO (10-20); Calcium,Total 8.6 mg/dL (8.5-10.1); Chloride 100 mmol/L (98-107); Creatinine, Serum 0.94 mg/dL (0.70-1.30); EST Glomerular Filtration Rate 84 mL/min (>60); Est Glom Filt Rate - Afr Amer 102 mL/min (>60); Glucose 98 mg/dL (74-106); Potassium 3.2 mmol/L (3.5-5.1); Sodium Level 134 mmol/L (136-145)
[2024-02-15 12:41] LABS: Bedside Glucose 112 mg/dL (74-106)
[2024-02-15] MEDS: Glucerna Shake 120 ML LIQUID PO ×2 (14:18→16:46)
[2024-02-15 14:19] VITALS: BP 136/86; PULSE 68; RESP 18; TEMP 37.7; O2SAT 100
--- NOTE | 2024-02-15 14:29 | PN.HOSP_ITS ---
Subjective Subjective No new issues overnight, he is having periodic fevers Objective Data Objective Data Vital Signs: Vital Signs Temp Pulse Resp BP Pulse Ox O2 Del Method O2 Flow Rate 99.8 F H 68 18 136/86 H 100 Room Air 2 02/15/24 14:19 02/15/24 14:19 02/15/24 14:19 02/15/24 14:19 02/15/24 14:19 02/15/24 14:19 02/13/24 00:45 Oxygen Flow Rate (L/min) 2 Oxygen Delivery Method Room Air Weight: 163 lb 9.328 oz Body Mass Index (BMI) 23.4 Intake & Output: Intake and Output for Last 24 Hours 02/14/24 02/15/24 02/16/24 03:59 03:59 03:59 Intake Total 1150 / 1150 850 / 850 880 / 880 Output Total 700 / 700 1350 / 1350 800 / 800 Balance 450 / 450 -500 / -500 80 / 80 Medical Nutrition Assessment Dietitian: Malnutrition Criteria Met Start: 02/13/24 15:28 Freq: Status: Active Protocol: Document 02/13/24 15:29 RMA (Rec: 02/13/24 15:29 RMA [id number]) Nutrition Malnutrition Evidence of Malnutrition Exists Yes Malnutrition (severe): Chronic Evidenced By Suboptimal Energy Intake ( Severe),Weight Loss (Severe) Clinical Problem Chronic Disease or Condition Related Malnutrition Etiology severe protein-calorie malnutrition in the context of chronic disease and debility related to inadequate oral/ energy intake Signs/Symptoms as evidenced by unintentional weight loss ~8-10% x past 2-4 months and ~25-26% x past 1 year; oral intake meeting less than 50% estimated nutrition needs x past 3-6 months Status Active Problem Recommendation Dietitian Recommendations/Changes In view of signs/symptoms of severe malnutrition, will liberalize diet to regular and monitor need to restrict carbohydrates if blood glucose rises. Will continue 120mL glucerna shake 4 times per day w/ medpass as ordered. Will add 240mL ensure plus high protein w/ breakfast. May need to consider enteral nutrition support if PO remains poor/inadequate and weight continues to decline. Lab / Micro Data 02/15/24 06:56 02/15/24 06:56 Labs: Laboratory Results - last 24 hr 02/14/24 16:25: POC Glucose 108 H 02/14/24 21:32: POC Glucose 118 H 02/15/24 06:05: POC Glucose 100 02/15/24 06:56: WBC 4.9, RBC 3.36 L, Hgb 9.6 L, Hct 29.5 L, MCV 87.8, MCH 28.6, MCHC 32.5, RDW Std Deviation 43.0, RDW Coeff of Frankie 13.3, Plt Count 187, MPV 9.4, Immature Gran % (Auto) 0.200, Neut % (Auto) 61.2, Lymph % (Auto) 25.1, [place] % (Auto) 11.1 H, Eos % (Auto) 1.6, Baso % (Auto) 0.8, Absolute Neuts (auto) 3.0, Absolute Lymphs (auto) 1.22, Nucleated RBC % 0, Sodium 134 L, Potassium 3.2 L, Chloride 100, Carbon Dioxide 26.0, Anion Gap 8, BUN 19 H, Creatinine 0.94, Estim Creat Clear Calc 75.50, Est GFR (MDRD) Af Amer 102, Est GFR (MDRD) Non-Af 84, B UN/Creatinine Ratio 20.2 H, Glucose 98, Calcium 8.6 02/15/24 12:23: POC Glucose 112 H Physical Exam Narrative General: Resting comfortably, Oriented x3, Cooperative, No apparent distress HEENT: Atraumatic, PERRLA, EOMI, Normocephalic Oral: Moist Mucosa Neck: Supple, No JVD Lungs: Diminished, Normal air movement, No rhonchi, No wheeze, No rales Cardiovascular: Regular rate, Regular Rhythm, Normal S1, Normal S2, No murmurs Abdomen: Soft, Non Tender, Non-Distended, No Hepato-splenomegaly Extremities: No edema, Capillary Refill Less than 3 Seconds Skin: No rashes, No breakdown Musculoskeletal: No Tenderness to Palpation of Joints or Extremities Neurological: No focal neurological deficits, Motor Exam 5/5 strength throughout, Sensory exam intact to light touch and pain Psych/Mental Status: Flat Assessment & Plan Assessment/Plan (1) Adverse drug reaction: QUALIFIERS: Encounter type: initial encounter Qualified Code(s): T50.905A - Adverse effect of unspecified drugs, medicaments and biological substances, initial encounter (2) Intermittent confusion: (3) Poor appetite: (4) Adult failure to thrive: PLAN: Plan 1. Possible adverse drug reaction to cefepime with adult failure to thrive and debility and inability to complete ADLs/spinal osteomyelitis and discitis ? She did have a positive cannabis on the urine drug screen//history of spinal osteomyelitis ? Appreciate infectious disease, will discontinue antibiotics and monitor per the recommendation his spinal osteomyelitis and discitis has been treated for the last 6 to 8 weeks ? The symptoms that he was describing on admission did not seem to be consistent with any known adverse side effects of cefepime if he is also being weaned off of his pain medication may have happened too quickly ? PT/OT is recommending outpatient therapy with home health 2. Hyperlipidemia ? Stable ? Continue with Lipitor 3. Anxiety/depression ? Stable ? Continue with his home medications 4. DM2 ? Stable ? Will hold his metformin ? Sliding scale insulin ? Accu-Cheks ACHS ? Will monitor and make adjustments as necessary DVT: Lovenox Charges/Coding Visit Charges Inpatient E&M: 68779 Subs Hosp L2
[2024-02-15] MEDS: Tamsulosin HCl 0.4 MG Capsule PO (16:46)
[2024-02-15 17:04] LABS: Bedside Glucose 117 mg/dL (74-106)
[2024-02-15 20:30] VITALS: BP 132/90; PULSE 72; RESP 15; TEMP 37.2; O2SAT 99
[2024-02-15] MEDS: traZODone 50 MG Tablet PO (20:59)
[2024-02-15] MEDS: Atorvastatin Calcium 40 MG Tablet PO (20:59)
[2024-02-15 21:29] LABS: Bedside Glucose 112 mg/dL (74-106)
[2024-02-16 01:45] VITALS: BP 145/87; PULSE 79; RESP 15; TEMP 36.8; O2SAT 99
[2024-02-16] MEDS: Acetaminophen 325 MG Tablet 650 MG PO (01:50)
[2024-02-16] MEDS: Gabapentin 400 MG Capsule PO ×2 (06:30→13:52)
[2024-02-16 06:32] VITALS: TEMP 36.7
[2024-02-16 06:51] LABS: Bedside Glucose 107 mg/dL (74-106)
[2024-02-16 08:01] VITALS: BP 141/85; PULSE 68; RESP 18; TEMP 36.7; O2SAT 97
[2024-02-16 08:50] LABS: Absolute Lymphocyte Count 1.38 X10^3/uL (0.83-4.51); Absolute Neutrophil Count 2.9 X10^3/uL (2.0-7.7); Basophil# 0.03 X10^3/uL; Basophil% 0.6 % (0-1); Eosinophil# 0.12 X10^3/uL; Eosinophils% 2.4 % (0-5); Hematocrit 30.9 % (40-54); Hemoglobin 10.4 g/dL (13.0-16.5); Lymphocyte # 1.38 X10^3/ul (0.83-4.51); Lymphocyte % 27.9 % (19-41); Mean Corp Hgb Conc 33.7 g/dL (32-36); Mean Corpuscular Hgb 28.9 pg (27.0-32.0); Mean Corpuscular Volume 85.8 fL (80-94); Mean Platelet Vol. 8.3 fl (6.2-12.0); Monocyte# 0.49 X10^3/uL; Monocyte% 9.9 % (0-10); NRBC Flagged by Analyzer 0 % (0-5); Neutrophil # 2.92 X10^3/uL (2.7-7.7); Platelet Count 227 K/mm3 (150-450); RBC Distribution Width CV 13.2 % (11.6-14.6); RBC Distribution Width SD 41.8 fl (35.1-43.9)
[2024-02-16] MEDS: DULoxetine Hcl 30 MG Capsule PO (09:10)
[2024-02-16] MEDS: Multivitamins,Therapeutic Tablet 1 TABLET PO (09:10)
[2024-02-16] MEDS: Aspirin E.C. 81 MG Tablet PO (09:10)
[2024-02-16] MEDS: Baclofen 10 MG Tablet 5 MG PO (09:11)
[2024-02-16] MEDS: Nystatin Powder 15gm Bottle 1 APPLIC TOPICAL (09:12)
[2024-02-16] MEDS: Menthol/Lanolin/Calamine/Znox 113 GM Tube 1 APPLIC TOPICAL (09:12)
[2024-02-16] MEDS: Enoxaparin 40 MG/0.4 ML Syringe SC (09:12)
[2024-02-16] MEDS: Glucerna Shake 120 ML LIQUID PO ×2 (09:31→13:58)
[2024-02-16 10:51] LABS: ALB/GLOB Ratio 0.9 RATIO (0.9-2.4); AST(SGOT) 22 U/L (15-37); Alanine Aminotransfer ALT/SGPT 20 U/L (16-61); Albumin, Serum 3.2 g/dL (3.2-5.0); Alkaline Phosphatase 91 U/L (45-117); Anion Gap 9 (5-15); BUN 16 mg/dL (7-18); BUN/Creat Ratio 17.1 RATIO (10-20); CRP < 2.90 mg/L (0.0-3.0); Calcium,Total 8.9 mg/dL (8.5-10.1); Chloride 98 mmol/L (98-107); Creatinine, Serum 0.94 mg/dL (0.70-1.30); EST Glomerular Filtration Rate 85 mL/min (>60); Est Glom Filt Rate - Afr Amer 102 mL/min (>60); Globulin 3.4 g/dL (2.2-4.2); Glucose 101 mg/dL (74-106); Potassium 3.3 mmol/L (3.5-5.1); Protein, Total 6.6 g/dL (6.4-8.2); Sodium Level 134 mmol/L (136-145)
[2024-02-16 11:19] LABS: Bedside Glucose 126 mg/dL (74-106)
[2024-02-16 13:48] VITALS: BP 151/85; PULSE 68; RESP 18; TEMP 37.1; O2SAT 98
[2024-02-16] MEDS: oxyCODONE 5 MG Tablet PO (13:52)
--- NOTE | 2024-02-16 14:31 | PCM.PN.ID ---
ID ID: Route of nutrition/ use of supplements: [] Nutritional Intake: [] IV Site: [] Gan Catheter: [] Patient overall clinically stable. Had an uneventful night. Ambulating. No further fevers. Feels well. Alert does not appear toxic lungs are clear heart exam S1-S2 abdomen soft Assessment & Plan Assessment/Plan (1) Osteomyelitis of lumbar spine: PLAN: Clinically doing well off antimicrobial therapy. PICC line has just been removed. Okay to go home with no antibiotics.
--- NOTE | 2024-02-16 14:55 | PCM.DC.SUM ---
Providers Date of Admission: 02/13/24 Primary Care Physician: Dr. Marlen Bear MD Consultations 02/13/24 02:43 Consult: Infectious Disease Routine Consulting Provider: Tomas Caro Reason for Consult: alternative for Cefipime, pt has had increased weakness and confusion EMERGENT Consult: No MD Notified: Yes Date Notified: 02/13/24 Time Notified: 09:04 Method of Notification: Answering Service Reason For Visit: ADULT FAILURE TO THRIVE & SUSPECTED ADVERSE DRUG Diagnosis Discharge Diagnosis (1) Osteomyelitis of lumbar spine: Status: Acute Code(s): M46.26 - Osteomyelitis of vertebra, lumbar region Medications at Discharge Home Medications aspirin 81 mg tablet,delayed release 81 mg PO DAILY HEART HEALTH 12/23/15 multivitamin 1 tab PO DAILY supplement 07/09/19 handicap placard #1 ea 04/21/22 blood sugar diagnostic (FreeStyle Lite Strips) #100 ea 09/15/22 blood-glucose meter (FreeStyle Lite Meter kit) #1 ea 09/15/22 fluticasone propionate 50 mcg/actuation nasal spray,suspension 1 - 2 spray intranasal BID PRN allergies, congestion #16 grams 04/27/23 atorvastatin 40 mg tablet 40 mg PO QHS CHOLESTEROL #90 tabs 08/21/23 trazodone 50 mg tablet 50 - 100 mg (1 - 2 x 50 mg) PO QHS sleep #90 tabs 08/21/23 metformin 500 mg tablet 500 mg PO BID DIABETIC 1 month #60 tabs 12/12/23 linaclotide 72 mcg capsule (Linzess) 72 mcg PO DAILY irritable colon 01/02/24 gabapentin 400 mg capsule 400 mg PO TID PAIN #90 caps 01/03/24 baclofen 5 mg tablet 5 mg PO BID PAIN 01/16/24 ferrous sulfate 325 mg (65 mg iron) tablet 325 mg PO QODAY #14 tabs 01/23/24 sennosides 8.6 mg-docusate sodium 50 mg tablet (Stool Softener-Stimulant Laxative) 2 tab PO BID PRN constipation 10 days #40 tabs 01/23/24 tamsulosin 0.4 mg capsule 0.4 mg PO DAILY@1730 #30 caps 01/23/24 acetaminophen 500 mg tablet 1,000 mg PO Q8 PRN PAIN 01/31/24 albuterol sulfate 90 mcg/actuation aerosol inhaler 1 - 2 puff inhalation Q4H PRN Wheezing 01/31/24 oxycodone 5 mg tablet 2.5 - 5 mg (0.5 - 1 x 5 mg) PO Q6H PRN pain 10 days #40 tabs 02/02/24 duloxetine 30 mg capsule,delayed release 30 mg PO DAILY ANXIETY #90 caps 02/05/24 Hospital Course Operations None Procedures None Summary of Care Provided Minutes Spent on Discharge: 32 Hospital Course: Per HPI: JARET BATES, is a 68 M with a past medical history of essential hypertension, hyperlipidemia, DM-2; of unknown control, CAD; s/p CABG x 3 (2011), Asthma, smokeless tobacco abuse, OA; bilateral knee pain, history of cervical spondylosis; s/p cervical spine fusion (2020), history of spinal stenosis of the lumbosacral region, DDD, RLS, history of BPH; with urinary obstruction, history of laparoscopic cholecystectomy (2022), history of COVID-19 (2020), remote history of agent orange exposure, chronic debility; ambulating with cane, fibromyalgia, IBS, history of opioid dependence and recently diagnosed discitis and osteomyelitis in the setting of previous discectomy and laminectomy for herniated nucleus pulposus with repeat L4-L5 laminectomy on the Left with discectomy and decompression of the L5 nerve root by Dr. Godoy (07/2023) with recent admission here in December 2023 with fevers and worsening back pain with workup eventually positive for recurrence of discitis and osteomyelitis; s/p L4-L5 anterolateral debridement with anterior fusion on 01/19/[address] Bradshaw of orthopedic-spinal surgery also followed by Dr. Wilkinson of infectious disease on IV Vancomycin and IV Cefepime for the past 5 days with patient complaining of altered mental status, poor appetite, generalized weakness and his claiming she can no longer care for him at home. Mr. Bates reports his acute symptoms began approximately one week prior to admission when he began trying to wean down on his pain medications. The ER provider also raised concerns for possible worsening side effects of Cefepime that may be contributing to his clinical decline as the patient states his problems clearly worsened after starting on this agent and they have persisted since that time over the past 5 days with intermittent confusion and nausea causing poor appetite with patient having little to no energy. He denies any saddle anesthesia, urinary retention, bowel or bladder incontinence, lower extremity weakness, history of IVDA, no recent spinal manipulation or trauma, no recent surgery and no recent urinary catheterization. In the ER he was noted to have have a a normal WBC of 7.2 present on admission and was afebrile at 97.9 degrees Fahrenheit with no signs of acute infection with laboratory evidence of hypokalemia of 3.2 mmol/L and only +cannabis on UDS present on admission compounded by suspected adverse drug reaction to Cefepime with developing adult [id number] and he was then admitted to the general medical floor under observation status for a stay that is expected to be less than 2 midnights. Hospital Course: 1. Adult failure to thrive and debility with inability to complete ADLs/spinal osteomyelitis discitis?68-year-old male presented to the hospital with weakness and debility thought to possibly be due to drug reaction to cefepime. Infectious disease was consulted and felt that we could trial him off antibiotics. CRP today was negative and infectious disease felt that we could discontinue antibiotics altogether and removed his PICC line. Will need to follow-up as an outpatient. Today he is feeling much better and request to be discharged home. He was evaluated physical therapy and Occupational Therapy and felt that he would be able to do outpatient therapy and home health care. I discussed with him plan for discharge today he expressed understanding of the risk benefits going home and would like to go home today. Of note he has been having intermittent low-grade temperatures but he assures me that he feels much better than when he came into the hospital and the only thing was holding his antibiotics. I did stress to him the need to have close outpatient follow-up. 2. Hyperlipidemia, anxiety, depression, type 2 diabetes are all chronic medical conditions which complicate his care. His home medications were continued where appropriate Physical Exam Narrative General: Alert, Oriented x3, Cooperative, No apparent distress HEENT: Atraumatic, PERRLA, EOMI, Normocephalic Oral: Moist Mucosa Neck: Supple, No JVD Lungs: Diminished, Normal air movement, No rhonchi, No wheeze, No rales Cardiovascular: Regular rate, Regular Rhythm, Normal S1, Normal S2, No murmurs Abdomen: Soft, Non Tender, Non-Distended, No Hepato-splenomegaly Extremities: No edema, Capillary Refill Less than 3 Seconds Skin: No rashes, No breakdown Musculoskeletal: No Tenderness to Palpation of Joints or Extremities Neurological: No focal neurological deficits, Motor Exam 5/5 strength throughout, Sensory exam intact to light touch and pain Psych/Mental Status: Normal affect Medical Records Data Medical Nutrition Assessment Dietitian: Malnutrition Criteria Met Start: 02/13/24 15:28 Freq: Status: Active Protocol: Document 02/16/24 10:04 SLA (Rec: 02/16/24 10:05 SLA [id number]) Nutrition Malnutrition Evidence of Malnutrition Exists Yes Malnutrition (severe): Chronic Evidenced By Suboptimal Energy Intake ( Severe),Weight Loss (Severe) Clinical Problem Chronic Disease or Condition Related Malnutrition Etiology severe protein-calorie malnutrition in the context of chronic disease and debility related to inadequate oral/ energy intake Signs/Symptoms as evidenced by unintentional weight loss ~8-10% x past 2-4 months and ~25-26% x past 1 year; oral intake meeting less than 50% estimated nutrition needs x past 3-6 months Status Active Problem Recommendation Dietitian Recommendations/Changes Continue CHO Control diet as ordered. Will continue 120mL glucerna shake 4 times per day w/ medpass as ordered. Discontinue 240mL ensure plus high protein w/ breakfast per pt request. Weight / BMI Weight Weight: 163 lb 9.328 oz Body Mass Index (BMI) 23.4 ABG / Lab / Microbiology Data 02/16/24 08:27 02/16/24 08:27 Laboratory: Laboratory Results - last 24 hr 02/15/24 16:45: POC Glucose 117 H 02/15/24 21:06: POC Glucose 112 H 02/16/24 06:29: POC Glucose 107 H 02/16/24 08:27: WBC 5.0, RBC 3.60 L, Hgb 10.4 L, Hct 30.9 L, MCV 85.8, MCH 28.9, MCHC 33.7, RDW Std Deviation 41.8, RDW Coeff of Frankie 13.2, Plt Count 227, MPV 8.3, Immature Gran % (Auto) 0.200, Neut % (Auto) 59.0, Lymph % (Auto) 27.9, Dukes % (Auto) 9.9, Eos % (Auto) 2.4, Baso % (Auto) 0.6, Absolute Neuts (auto) 2.9, Absolute Lymphs (auto) 1.38, Nucleated RBC % 0, Sodium 134 L, Potassium 3.3 L, Chloride 98, Carbon Dioxide 27.0, Anion Gap 9, BUN 16, Creatinine 0.94, Estim Creat Clear Calc 75.50, Est GFR (MDRD) Af Amer 102, Est GFR (MDRD) Non-Af 85, BUN/Creatinine Ratio 17.1, Glucose 101, Calcium 8.9, Total Bilirubin 1.10 H, AST 22, ALT 20, Alkaline Phosphatase 91, C-React Prot Ext Range < 2.90, Total Protein 6.6, Albumin 3.2, Globulin 3.4, Albumin/Globulin Ratio 0.9 02/16/24 10:57: POC Glucose 126 H Meaningful Use Info Meaningful Use Meaningful Use Diagnoses (Choose all that apply): None applicable Ischemic Stroke Statin Dosing Therapy Reference: STATIN DOSE THERAPY REFERENCE: * Patients > 75 years receive moderate or high dose statin therapy. * Patients 75 years or YOUNGER should receive HIGH intensity statin dose unless contraindicated. You will be required to document reason for non-treatment if statin daily dose does not meet guidelines. HIGH DOSE STATIN THERAPY DAILY Atorvastatin > than or = to 40 mg Rosuvastatin > than or = to 20 mg Amlodipine + Atorvastatin > than or = to 2.5/40 mg Ezetimibe + Simvastatin 10/80 mg Simvastatin 80mg Discharge Plan Admission Admit Date/Time: 02/13/24 00:57 Attending Provider: Dimas Clinton Primary Care Provider: Marlen Bear Consulting Providers: Adeel Rosado; Tomas Caro Discharge Orders/Prescriptions Prescriptions: Continued multivitamin Tablet 1 tab PO DAILY (DME) handicap placard See Rx Instructions .Route .MEDSUPPLY Qty: 1 0RF Rx Instructions: fatique , pain in right knee , oteoarathritis oxycodone 5 mg tablet 2.5 - 5 mg PO Q6H PRN (Reason: pain) 10 Days Qty: 40 0RF aspirin 81 MG tablet,delayed release (DR/EC) 81 mg PO DAILY metformin 500 mg tablet 500 mg PO BID 30 Days Qty: 60 2RF Rx Instructions: Start from 12/14/2023 Linzess 72 mcg capsule 72 mcg PO DAILY Patient Comments: PT HASNT USED IN APPROX 1 WEEK. gabapentin 400 mg Capsule 400 mg PO TID Qty: 90 0RF baclofen 5 mg tablet 5 mg PO BID ferrous sulfate 325 mg (65 mg iron) tablet 325 mg PO QODAY Qty: 14 0RF tamsulosin 0.4 mg Capsule 0.4 mg PO DAILY@1730 Qty: 30 0RF sennosides-docusate sodium [Stool Softener-Stimulant Laxat] 8.6-50 mg Tablet 2 tab PO BID PRN (Reason: constipation) 10 Days Qty: 40 0RF acetaminophen 500 mg Tablet 1,000 mg PO Q8 PRN (Reason: PAIN) albuterol sulfate 90 mcg/actuation HFA aerosol inhaler 1 - 2 puff INHALATION Q4H PRN (Reason: Wheezing) (DME) FreeStyle Lite Strips Strip See Rx Instructions .Route Qty: 100 3RF Rx Instructions: Twice daily (DME) blood-glucose meter [FreeStyle Lite Meter] Kit See Rx Instructions .Route Qty: 1 0RF Rx Instructions: Test twice daily fluticasone propionate 50 mcg/actuation spray,suspension 1 - 2 spray intranasal BID PRN (Reason: allergies, congestion) Qty: 16 3RF Rx Instructions: administer into each nostril; 2 sprays in each nostril for the first week atorvastatin 40 mg tablet 40 mg PO QHS Qty: 90 3RF trazodone 50 mg tablet 50 - 100 mg PO QHS Qty: 90 3RF duloxetine 30 mg capsule,delayed release(DR/EC) 30 mg PO DAILY Qty: 90 1RF Discontinued cefepime 2 gram Recon Soln 2 g IV Q8 39 Days Qty: 117 0RF Rx Instructions: stop date 03/01/24. Dx: spine osteomyelitis. Weekly bmp, cbc, esr, and vanc trough. Fax to [phone]. Routine picc care per protocol. vancomycin 1.5 gram recon soln 1.5 g IV Q12H 39 Days Rx Instructions: stop date 03/01/24. Dx: spine osteomyelitis. Weekly bmp, cbc, esr, and vanc trough. Fax to [phone]. Routine picc care per protocol. Referrals / Follow Up: Marlen Bear MD [Primary Care Provider] - Within 1 Week Disposition Disposition (needs filled in before D/C Order can be placed): Home Health Service Charges/Coding Visit Charges Inpatient E&M: 93197 Disch Hosp >30min
--- NOTE | 2024-02-16 15:38 | CASEMGMT ---
Order for pt DC placed. Pt is aware that [facility] will come to the pt home on 02/18 and will contact him with a time of arrival. Pt denies further concerns. Pt RN aware. Per ID, the PICC was cleared to be removed as the pt does not require further IV ATBs. [facility] notified via [facility] at this time.
== END 2024-02-16 15:49 | disposition home health service (06) ==
LOC: ED 02-13 00:29 → MS3 02-13 01:01
PROVIDERS: Admitting Provider Internal Medicine; Emergency Provider Emergency Medicine; PCP Internal Medicine; Visit Provider Family Medicine
DX: R62.7 Adult failure to thrive (principal); M46.26 Osteomyelitis of vertebra, lumbar region; E11.69 Type 2 diabetes mellitus with other specified complication; M79.7 Fibromyalgia; E87.6 Hypokalemia; Z79.84 Long term (current) use of oral hypoglycemic drugs; I10 Essential (primary) hypertension; F17.220 Nicotine dependence, chewing tobacco, uncomplicated; I25.10 Atherosclerotic heart disease of native coronary artery without angina pectoris; R41.0 Disorientation, unspecified; E86.0 Dehydration; E78.00 Pure hypercholesterolemia, unspecified; J45.909 Unspecified asthma, uncomplicated; D64.9 Anemia, unspecified; Z98.1 Arthrodesis status; Z79.899 Other long term (current) drug therapy; N40.1 Benign prostatic hyperplasia with lower urinary tract symptoms; N13.8 Other obstructive and reflux uropathy; Z79.51 Long term (current) use of inhaled steroids; Z57.4 Occupational exposure to toxic agents in agriculture; Z68.23 Body mass index [BMI] 23.0-23.9, adult
CPT/HCPCS: 36415; 70450; 71045; 80048; 80053; 80202; 80307; 81001; 82040; 82077; 82962; 83605; 83735; 84134; 84145; 84443; 85025; 85027; 86140; 96361; 96372; 96374; 96376; 97110; 97116; 97162; 97166; 97530; 97535; 97802; 99221; 99285; 99406; A4216; G0378; J2405

== ENCOUNTER 2024-03-16 20:56 | Inpatient (IN) | payer OTHER, SELFPAY ==
[2024-03-16 20:59] VITALS: BP 152/105; PULSE 103; RESP 18; TEMP 36.8; O2SAT 100
[2024-03-16 21:01] VITALS: BMI 24.3
--- NOTE | 2024-03-16 21:29 | CT_ITS ---
STUDY: CT BRAIN WITHOUT CONTRAST REASON FOR EXAM: Male, 68 years old. altered mental status RADIATION DOSAGE (If Supplied By Facility): CTDIvol = ( 44.99 ) mGy, DLP = ( 796.11 ) mGycm TECHNIQUE: Transaxial CT imaging of the brain was performed without administration of intravenous contrast material. Individualized dose optimization techniques were used for this CT. COMPARISON: No relevant priors. FINDINGS: Normal soft tissue structures. Normal calvarium. Prominent ventricles and extra-axial spaces with atrophy. Mild white matter microangiopathic ischemic changes of the cerebral hemispheres. Old lacunar infarct in the left basal ganglia. Normal thalami. Normal brainstem. Normal cerebellum. There is no intracranial hemorrhage. There are no findings of an acute ischemic infarction. Normal visualized paranasal sinuses. CT/Brain/Head without Contrast IMPRESSION: Age-related changes of the brain. Electronically Signed: Logan Eaton DO at 23:14 EDT ,
--- NOTE | 2024-03-16 21:29 | CT_ITS ---
STUDY: CT LUMBAR SPINE WITHOUT CONTRAST REASON FOR EXAM: Male, 68 years old. ? post surgical infection RADIATION DOSAGE (If Supplied By Facility): CTDIvol = ( 26.98 ) mGy, DLP = ( 1724.10 ) mGycm TECHNIQUE: The patient was scanned in a multi detector CT scanner. High resolution transaxial imaging was performed. Images were obtained from to . Sagittal and coronal images were reconstructed. Individualized dose optimization techniques were used for this CT. COMPARISON: January 31, 2024 FINDINGS: Normal lumbar lordosis. There is a mild levoscoliosis. Surgical laminectomy of L3 and L4 L1-2: Mild spurring at the endplates. Normal disc height and morphology. Normal bilateral facet joints. Normal central canal and bilateral lateral recesses. Normal bilateral intervertebral neural foramina. L2-3: Spurring at the endplates. Narrowed disc height. Normal bilateral facet joints. Normal central canal and bilateral lateral recesses. Normal bilateral intervertebral neural foramina. L3-4: Spurring at the endplates. Narrowed disc height. Normal bilateral facet joints. Normal central canal and bilateral lateral recesses. Normal bilateral intervertebral neural foramina. L4-5: Surgical fusion with disc spacer in place. Normal bilateral facet joints. Normal central canal and bilateral lateral recesses. Normal bilateral intervertebral neural foramina. L5-S1: Normal endplates. Normal disc height and morphology. Normal bilateral facet joints. Normal central canal and bilateral lateral recesses. Normal bilateral intervertebral neural foramina. Normal visualized paraspinous soft tissue structures. No drainable collection. No subcutaneous emphysema. CT/Spine Lumbar without Contrast IMPRESSION: Degenerative and postsurgical changes of the lumbar spine. Correlation with MRI is recommended if there is clinical concern for infection. Electronically Signed: Logan Eaton DO at 23:28 EDT Reading Location ID and State: [facility] / [place] Tel [phone], Service support ,
[2024-03-16] MEDS: 0.9% Normal Saline (1000mL) 1,000 ML 999 ML IV (21:55)
[2024-03-16 21:56] LABS: Blood Gas Specimen Type VEN; O2 Delivery Device Room Air; SITE Not entered; VBG BASE EXCESS 1 mmol/L (-1.0-3.5); VBG Bicarbonate 24 mmol/L (22-26); VBG PO2 42 mmHg (25-40); VBG SO2 81 % (50-70); VBG TCO2 25 mmol/L (23-33); VBG pCO2 33.7 mmHg (41-51); VBG pH 7.47 (7.32-7.42)
[2024-03-16 22:01] VITALS: BP 138/77; PULSE 78; RESP 21; TEMP 38.2; O2SAT 97
[2024-03-16 22:09] LABS: Absolute Lymphocyte Count 0.83 X10^3/uL (0.83-4.51); Absolute Neutrophil Count 5.4 X10^3/uL (2.0-7.7); Basophil# 0.03 X10^3/uL; Basophil% 0.4 % (0-1); Eosinophil# 0.04 X10^3/uL; Eosinophils% 0.6 % (0-5); Hematocrit 34.5 % (40-54); Hemoglobin 11.4 g/dL (13.0-16.5); Lymphocyte # 0.83 X10^3/ul (0.83-4.51); Lymphocyte % 11.9 % (19-41); Mean Corpuscular Hgb 28.4 pg (27.0-32.0); Mean Corpuscular Volume 85.8 fL (80-94); Mean Platelet Vol. 8.8 fl (6.2-12.0); Monocyte# 0.64 X10^3/uL; Monocyte% 9.2 % (0-10); NRBC Flagged by Analyzer 0 % (0-5); Neutrophil # 5.39 X10^3/uL (2.7-7.7); Neutrophil % 77.6 % (47-70); Platelet Count 299 K/mm3 (150-450); RBC Distribution Width CV 13.6 % (11.6-14.6); Red Blood Count 4.02 M/mm3 (4.6-6.2)
--- NOTE | 2024-03-16 22:10 | RAD_ITS ---
INDICATION: altered mental EXAMINATION/TECHNIQUE: X-RAY - XR Chest 1 View COMPARISON: No relevant prior comparison study available FINDINGS: LINES/DEVICES: None. LUNGS: No consolidation, edema or effusion. No pneumothorax. MEDIASTINUM AND CARDIOVASCULAR STRUCTURES: Cardiac silhouette not enlarged. Central airways and mediastinal contour are unremarkable. BONES AND SOFT TISSUES: Unremarkable. RAD/Chest 1 View (Portable) IMPRESSION: No radiographic evidence of acute cardiopulmonary disease. Electronically Signed: Donald Villegas MD at 0:25 EDT ,
[2024-03-16 22:23] LABS: Alcohol, Blood (Medical)-Serum < 3.0 mg/dL
[2024-03-16 22:26] LABS: Lactic Acid 1.3 mmol/L (0.4-1.9)
[2024-03-16 22:34] LABS: Anion Gap 8 (5-15); BUN 29 mg/dL (7-18); BUN/Creat Ratio 22.8 RATIO (10-20); Calcium,Total 9.8 mg/dL (8.5-10.1); Chloride 96 mmol/L (98-107); Creatinine, Serum 1.27 mg/dL (0.70-1.30); EST Glomerular Filtration Rate 59 mL/min (>60); Est Glom Filt Rate - Afr Amer 72 mL/min (>60); Glucose 115 mg/dL (74-106); Potassium 4.3 mmol/L (3.5-5.1); Sodium Level 130 mmol/L (136-145); Thyroid Stim Hormone (TSH) 1.53 uIU/mL (0.358-3.74)
[2024-03-16 22:34] LABS: Procalcitonin 0.08 ng/mL (0.00-0.09)
[2024-03-16] MEDS: Acetaminophen 650 MG Suppository RC (22:43)
[2024-03-16] MEDS: Piperacil/Tazobactam 3.375 GM in 0.9% Normal Saline (50mL MB+) 50 ML IV (22:44)
[2024-03-16 22:48] LABS: Bacteria 0 SEEN /hpf (None Seen); Mucous, Urine 0 SEEN /hpf (<or=2+); Red Blood Cells-Urine 0 SEEN /hpf (0-5); Squamous Epithelial Cells - UA 0 SEEN /hpf (0-5); White Blood Cells 0 SEEN /hpf (0-5)
[2024-03-16 22:49] LABS: Color, Urine Yellow (Yellow); Glucose, Dipstick Normal (Normal); Ketone-Dipstick 5 mg/dl (Negative); Leukocyte Esterase-Dipstick Negative /ul (Negative); Nitrite-Dipstick Negative (Negative); Occult Blood-Urine Negative /ul (Negative); Protein-Dipstick 15 mg/dl (Negative); Urine Bilirubin Dipstick Negative (Negative); Urine Clarity Clear (Clear); Urine Urobilinogen Normal (Normal)
[2024-03-16 23:00] VITALS: BP 130/88; PULSE 78; RESP 15; TEMP 38; O2SAT 97
[2024-03-16] MEDS: Vancomycin IV 1,000 MG/200 ML BAG 200 MG IV (23:36)
--- NOTE | 2024-03-16 23:58 | EX.ED.DYSGE1 ---
HPI History of Present Illness Chief Complaint: Confusion Informant: spouse/S.O. Narrative Narrative: Patient is a 68-year-old male with history of hypertension hyperlipidemia [id number] diabetes and osteomyelitis and discitis. According to he had spinal surgery in November and then developed change in mental status weeks later and it was found to be secondary to an infectious process. She states that in January he had repeat surgery secondary to complications from the initial in November. She reports that after a few weeks he was doing well and was discharged. She states he has been at his baseline and that this evening they are driving to an event. She states once they arrived she noticed that he was acting abnormally and not responding appropriately. She states that she made him get in the passenger seat and she drove home. After arriving home she made the patient rest and she felt like he was playing on his phone. However when she went to check on him she noticed that his screen was blank and that he was not following commands or responding to her. She states is the exact same presentation he had when he had the infection in his lumbar spine. Therefore with concern for repeat infection and his change in mental status he was brought to the hospital for evaluation The patient cannot offer any further history based on his altered mental status [facility] Medical History Vasovagal episode Pulse irregularity Bilirubinuria Contact with or exposure to other viral diseases Lumbosacral radiculopathy at L5 History of steroid therapy Smokeless tobacco use Tension headache Agent orange exposure Bilateral primary osteoarthritis of knee Wears hearing aid Cancer Alcohol use Diabetes Ambulates with cane Arthritis Prostate disease High cholesterol (~08/21/23) Restless legs Back pain Injury of head and neck Syncope History of IBS Shortness of breath on exertion History of pain when walking History of echocardiogram History of stress test Cardiology follow-up encounter Tear of medial meniscus of right knee Fibromyalgia BPH w urinary obs/LUTS Left knee DJD Right knee DJD Fusion of spine, cervical region Chondromalacia, right knee Chondromalacia, left knee Chondromalacia of both patellae COVID-19 virus detected (11/19/20) Nonrheumatic aortic (valve) stenosis with insufficiency Opioid dependence Obesity Asthma Hyperlipemia Essential (primary) hypertension Atherosclerotic heart disease of [place] coronary artery without angina pectoris Type 2 diabetes mellitus Spondylosis of lumbosacral region without myelopathy or radiculopathy Spinal stenosis of lumbosacral region Radiculopathy of lumbosacral region Degeneration of intervertebral disc of lumbosacral region Arthropathy of cervical facet joint Degeneration of cervical disc without myelopathy Cervical spondylosis Home Medications ?Medication ?Instructions ?Recorded ?Last Taken ?Type multivitamin 1 tab PO DAILY supplement 07/09/19 01/18/24 History handicap placard #1 ea 04/21/22 Unknown Rx blood sugar diagnostic (FreeStyle #100 ea 09/15/22 Unknown Rx Lite Strips) blood-glucose meter (FreeStyle #1 ea 09/15/22 Unknown Rx Lite Meter kit) fluticasone propionate 50 1 - 2 spray intranasal BID PRN 04/27/23 01/30/24 Rx mcg/actuation nasal allergies, congestion #16 grams spray,suspension atorvastatin 40 mg tablet 40 mg PO QHS CHOLESTEROL #90 tabs 08/21/23 01/30/24 Rx trazodone 50 mg tablet 50 - 100 mg (1 - 2 x 50 mg) PO QHS 08/21/23 01/30/24 Rx sleep #90 tabs metformin 500 mg tablet 500 mg PO BID DIABETIC 1 month #60 12/12/23 01/30/24 Rx tabs baclofen 5 mg tablet 5 mg PO BID PAIN 01/16/24 01/30/24 History sennosides 8.6 mg-docusate sodium 2 tab PO BID PRN constipation 10 01/23/24 01/30/24 Rx 50 mg tablet (Stool days #40 tabs Softener-Stimulant Laxative) albuterol sulfate 90 mcg/actuation 1 - 2 puff inhalation Q4H PRN 01/31/24 Unknown History aerosol inhaler Wheezing duloxetine 30 mg capsule,delayed 30 mg PO DAILY ANXIETY #90 caps 02/05/24 Unknown Rx release doxycycline hyclate 100 mg capsule 100 mg PO BID 02/22/24 Unknown History gabapentin 300 mg capsule 300 mg PO TID 02/27/24 Unknown History linaclotide 72 mcg capsule 72 mcg PO DAILY PRN irritable colon 02/27/24 Unknown History (Linzess) oxycodone-acetaminophen 7.5 mg-325 1 tab PO BID 03/16/24 Unknown History mg tablet tamsulosin 0.4 mg capsule 0.4 mg PO DAILY 03/16/24 Unknown History Allergy/AdvReac Type Severity Reaction Status Date / Time adhesive tape Allergy Rash Verified 03/16/24 20:58 sertraline (From Zoloft) AdvReac Unknown Verified 03/16/24 20:58 Family History Brother Heart disease Myocardial infarction 60's CAD (coronary artery disease) Father Myocardial infarction 65 CAD (coronary artery disease) Mother HLD (hyperlipidemia) when son was 16 following MVA, healthy aside HLD. Surgical History Hx of laminectomy S/P laminectomy Status post discectomy for herniated nucleus pulposus History of lateral meniscus repair of right knee (~2021) Hx laparoscopic cholecystectomy (~11/2022) Hx of bilateral cataract extraction H/O cervical spine surgery (08/2020) History of herniorrhaphy History of carpal tunnel release History of back surgery History of left heart catheterization (09/09/11) H/O coronary artery bypass surgery (09/14/11) Social History household members: spouse Smoking Status: Current every day smoker tobacco type: smokeless tobacco Smokeless tobacco user: chewing tobacco alcohol intake: current alcohol intake frequency: a few times a month substance use type: does not use caffeine: Yes Type: coffee Number of servings: 2 ROS ROS ED ROS Narrative Unable to obtain review of systems secondary to mental status Review of Systems ROS Unobtainable: due to mental status EXAM Physical Exam Const Vital Signs: 03/16/24 20:59 03/16/24 20:59 03/16/24 22:01 Temperature 98.3 F 98.3 F 100.8 F H Temperature Source Temporal Temporal Oral Pulse Rate 103 H 103 H 78 Respiratory Rate 18 18 21 H Blood Pressure 152/105 H 152/105 H 138/77 H Blood Pressure Mean 120 120 97 Pulse Ox 100 100 97 Oxygen Delivery Method Room Air Room Air Room Air 03/16/24 23:00 Temperature 100.4 F H Temperature Source Oral Pulse Rate 78 Respiratory Rate 15 Blood Pressure 130/88 H Blood Pressure Mean 102 Pulse Ox 97 Oxygen Delivery Method Room Air Positive well nourished and well developed General Appearance ED: well developed; Negative for pallor HEENT Reports dry mucous membranes HEENT Narrative: No tongue or lip swelling no oral lesions no airway edema or compromise No tongue or cheek biting to suggest seizure activity Mouth ED: Yes dry mucous membranes Mouth: dry mucous membranes Eyes EOMs intact bilaterally Eyes Narrative: Pupils are dilated and sluggish to respond to light Neck supple Neck Narrative: No nuchal rigidity or meningeal signs noted Chest Wall palpation of chest normal Chest Narrative: No bony deformity or crepitance Resp normal respiratory effort and clear to auscultation bilaterally Resp Narrative: Breath sounds are diminished throughout but overall clear to auscultation without nasal flaring retractions tachypnea or accessory muscle use Cardio regular rate and regular rhythm GI normal to inspection, nondistended, normoactive bowel sounds, non-tender, non-distended and no masses Auscultation: hypoactive bowel sounds Palpation: soft Back/Spine Back/Spine Narrative: Surgical incision noted along the upper to mid lumbar spine that is clean dry and intact without secondary changes to suggest infection or trauma Extremity normal to inspection Neuro Neuro Narrative: GCS of 13 Patient is obtunded but protecting his airway and having no difficulty with secretions. He is moving all extremities and there is no obvious facial droop or focal neurologic deficit. Sensorium / Orientation: orientation impaired Skin no rashes or lesions noted General Skin Exam: Negative for jaundice or pallor MDM MDM MDM Narrative Medical decision making narrative: Patient arrived to the ER mildly hypertensive and with a low-grade fever. He is altered but protecting his airway and able to move extremities and does not have focal facial droop or overt focal neurologic finding and therefore I felt there was low concern this was stroke leading to his change in mental status and more so infection especially as he had a fever of 100.6. Basic labs were obtained which revealed no clinically significant findings such as leukocytosis or lactic acidosis or elevation to his procalcitonin. There are no signs of urinary tract infection either. Head CT did not reveal any acute bleed or mass and imaging of his low back did not show any overt signs of osteomyelitis or discitis. A blood culture was obtained and he was initially ordered vancomycin and Zosyn secondary to his fever and concern for infection. However after discussing the case with medicine service/hospitalist as we do not have an overt cause we will hold off on antibiotics at this time until further imaging or potential biopsies can be obtained. The patient does not have any improvement of his mental status while in the ER however also did not worsen as he is still protecting his airway moving extremities. But with concern for recurrent infection and the fact that he remains obtunded he is not safe for discharge and therefore he will be admitted to the hospital for further care History & Record Review Discussion w/independent historian: Significant other Lab Data Attestation: I reviewed the patient's lab results. Labs: Laboratory Results - last 24 hr 03/16/24 03/16/24 03/16/24 21:20 21:54 22:43 WBC 7.0 RBC 4.02 L Hgb 11.4 L Hct 34.5 L MCV 85.8 MCH 28.4 MCHC 33.0 RDW Std Deviation 43.0 RDW Coeff of [place] 13.6 Plt Count 299 MPV 8.8 Immature Gran % (Auto) 0.300 Neut % (Auto) 77.6 H Lymph % (Auto) 11.9 L [place] % (Auto) 9.2 Eos % (Auto) 0.6 Baso % (Auto) 0.4 Absolute Neuts (auto) 5.4 Absolute Lymphs (auto) 0.83 Nucleated RBC % 0 Sodium 130 L Potassium 4.3 Chloride 96 L Carbon Dioxide 26.0 Anion Gap 8 BUN 29 H Creatinine 1.27 Est GFR (MDRD) Af Amer 72 Est GFR (MDRD) Non-Af 59 L BUN/Creatinine Ratio 22.8 H Glucose 115 H Lactic Acid 1.3 Calcium 9.8 Ammonia 21.0 Procalcitonin 0.08 TSH 1.53 Urine Color Yellow Urine Clarity Clear Urine pH 7.0 Ur Specific [place] 1.010 Urine Protein 15 H Urine Glucose (UA) Normal Urine Ketones 5 H Urine Occult Blood Negative Urine Nitrite Negative Urine Bilirubin Negative Urine Urobilinogen Normal Ur Leukocyte Esterase Negative Urine RBC 0 SEEN Urine WBC 0 SEEN Ur Squamous Epith Cells 0 SEEN Urine Bacteria 0 SEEN Urine Mucus 0 SEEN Ur Drug Screen Comment Ethyl Alcohol < 3.0 ABG Data ABG results: ABG 03/16/24 21:53 Specimen Type NORMA Sample Site Not entered VBG pH 7.47 H VBG pO2 42 H VBG HCO3 24 VBG Total CO2 25 VBG O2 Sat (Calc) 81 H VBG Base Excess 1 POC Mix VBG pCO2 Pt Tmp 33.7 L O2 Delivery Device Room Air Radiography Diagnostic Testing: Clinical Impression(s) from Imaging Studies Brain CT 03/16/24 21:29 IMPRESSION: Age-related changes of the brain. Electronically Signed: Loganbryant Eaton DO at 23:14 EDT , Lumbar Spine CT 03/16/24 21:29 IMPRESSION: Degenerative and postsurgical changes of the lumbar spine. Correlation with MRI is recommended if there is clinical concern for infection. Electronically Signed: Logan Eaton DO at 23:28 EDT , 1 view chest x-ray as interpreted by the emergency medicine physician reveals no acute infiltrate pneumothorax or pleural effusion Management Discussion w/another healthcare provider: Hospitalist Discharge Plan Dx/Rx/DC Orders Clinical Impression: Acute metabolic encephalopathy, History of discitis, History of osteomyelitis, Essential (primary) hypertension, Pyrexia, Type 2 diabetes mellitus Disposition Disposition: Acute Care [facility]
[2024-03-17] VITALS (10 sets, daily range): BP systolic 112–135; BP diastolic 55–84; PULSE 69–91; RESP 16–22; TEMP 36.5–37.2; O2SAT 95–100; BMI 23.1
[2024-03-17 00:17] LABS: Amphetamine Urine VISTA NEGATIVE (<1000 ng/mL); Barbiturate Urine VISTA NEGATIVE (< 200 ng/mL); Benzodiazepine Urine VISTA NEGATIVE (< 200 ng/mL); Cocaine Urine VISTA NEGATIVE (< 300 ng/mL); Ecstacy Urine VISTA NEGATIVE (< 500 ng/mL); Methadone Urine VISTA NEGATIVE (< 300 ng/mL); PCP Urine VISTA NEGATIVE (< 25 ng/mL); THC Urine VISTA POSITIVE (< 50 ng/mL); Vista UDS pH Range 7
--- NOTE | 2024-03-17 00:26 | HP.PCM.HOS_ITS ---
HPI - General General Date of Service: 03/17/24 Chief Complaint: confusion HPI Narrative JARET FIGUEROA, is a 68 M who presents with confusion. Is a 68-year-old male whose had a history of vertebral osteomyelitis, presents with confusion. Patient was going to some kind of car show drove self down but was not feeling well and then gradually got more confused. History is obtained through his as he is too confused to provide any history whatsoever. While he was in the emergency room, he started developing a temperature of around 38 Celsius. states that this was how he presented before when he had vertebral osteomyelitis. Patient underwent a lumbar spine CT that showed degenerative and postsurgical changes. Chest x-ray was unremarkable. Drug screen is positive for cannabinoids but the patient's states that she does not think that he has used it for few days but is not completely sure. But with his ongoing persistent confusion, fever the hospital service was contacted for admission. [facility] Medical History Vasovagal episode Pulse irregularity Bilirubinuria Contact with or exposure to other viral diseases Lumbosacral radiculopathy at L5 History of steroid therapy Smokeless tobacco use Tension headache Agent orange exposure Bilateral primary osteoarthritis of knee Wears hearing aid Cancer Alcohol use Diabetes Ambulates with cane Arthritis Prostate disease High cholesterol (~08/21/23) Restless legs Back pain Injury of head and neck Syncope History of IBS Shortness of breath on exertion History of pain when walking History of echocardiogram History of stress test Cardiology follow-up encounter Tear of medial meniscus of right knee Fibromyalgia BPH w urinary obs/LUTS Left knee DJD Right knee DJD Fusion of spine, cervical region Chondromalacia, right knee Chondromalacia, left knee Chondromalacia of both patellae COVID-19 virus detected (11/19/20) Nonrheumatic aortic (valve) stenosis with insufficiency Opioid dependence Obesity Asthma Hyperlipemia Essential (primary) hypertension Atherosclerotic heart disease of [place] coronary artery without angina pectoris Type 2 diabetes mellitus Spondylosis of lumbosacral region without myelopathy or radiculopathy Spinal stenosis of lumbosacral region Radiculopathy of lumbosacral region Degeneration of intervertebral disc of lumbosacral region Arthropathy of cervical facet joint Degeneration of cervical disc without myelopathy Cervical spondylosis Home Medications ?Medication ?Instructions ?Recorded ?Last Taken ?Type multivitamin 1 tab PO DAILY supplement 07/09/19 01/18/24 History handicap placard #1 ea 04/21/22 Unknown Rx blood sugar diagnostic (FreeStyle #100 ea 09/15/22 Unknown Rx Lite Strips) blood-glucose meter (FreeStyle #1 ea 09/15/22 Unknown Rx Lite Meter kit) fluticasone propionate 50 1 - 2 spray intranasal BID PRN 04/27/23 01/30/24 Rx mcg/actuation nasal allergies, congestion #16 grams spray,suspension atorvastatin 40 mg tablet 40 mg PO QHS CHOLESTEROL #90 tabs 08/21/23 01/30/24 Rx trazodone 50 mg tablet 50 - 100 mg (1 - 2 x 50 mg) PO QHS 08/21/23 01/30/24 Rx sleep #90 tabs metformin 500 mg tablet 500 mg PO BID DIABETIC 1 month #60 12/12/23 01/30/24 Rx tabs baclofen 5 mg tablet 5 mg PO BID PAIN 01/16/24 01/30/24 History sennosides 8.6 mg-docusate sodium 2 tab PO BID PRN constipation 10 01/23/24 01/30/24 Rx 50 mg tablet (Stool days #40 tabs Softener-Stimulant Laxative) albuterol sulfate 90 mcg/actuation 1 - 2 puff inhalation Q4H PRN 01/31/24 Unknown History aerosol inhaler Wheezing duloxetine 30 mg capsule,delayed 30 mg PO DAILY ANXIETY #90 caps 02/05/24 Unknown Rx release doxycycline hyclate 100 mg capsule 100 mg PO BID 02/22/24 Unknown History gabapentin 300 mg capsule 300 mg PO TID 02/27/24 Unknown History linaclotide 72 mcg capsule 72 mcg PO DAILY PRN irritable colon 02/27/24 Unknown History (Linzess) oxycodone-acetaminophen 7.5 mg-325 1 tab PO BID 03/16/24 Unknown History mg tablet tamsulosin 0.4 mg capsule 0.4 mg PO DAILY 03/16/24 Unknown History Allergy/AdvReac Type Severity Reaction Status Date / Time adhesive tape Allergy Rash Verified 03/16/24 20:58 sertraline (From Zoloft) AdvReac Unknown Verified 03/16/24 20:58 Family History Brother Heart disease Myocardial infarction 60's CAD (coronary artery disease) Father Myocardial infarction 65 CAD (coronary artery disease) Mother HLD (hyperlipidemia) when son was 16 following MVA, healthy aside HLD. Surgical History Hx of laminectomy S/P laminectomy Status post discectomy for herniated nucleus pulposus History of lateral meniscus repair of right knee (~2021) Hx laparoscopic cholecystectomy (~11/2022) Hx of bilateral cataract extraction H/O cervical spine surgery (08/2020) History of herniorrhaphy History of carpal tunnel release History of back surgery History of left heart catheterization (09/09/11) H/O coronary artery bypass surgery (09/14/11) Social History household members: spouse Smoking Status: Current every day smoker tobacco type: smokeless tobacco Smokeless tobacco user: chewing tobacco alcohol intake: current alcohol intake frequency: a few times a month substance use type: does not use caffeine: Yes Type: coffee Number of servings: 2 ROS ROS Narrative Unable to obtain due to encephalopathy Vital Signs Vital Signs Vital Signs: 03/16/24 20:59 03/16/24 20:59 03/16/24 22:01 Temperature 36.8 C 36.8 C 38.2 C H Temperature Source Temporal Temporal Oral Pulse Rate 103 H 103 H 78 Respiratory Rate 18 18 21 H Blood Pressure 152/105 H 152/105 H 138/77 H Blood Pressure Mean 120 120 97 Pulse Ox 100 100 97 Oxygen Delivery Method Room Air Room Air Room Air 03/16/24 23:00 Temperature 38.0 C H Temperature Source Oral Pulse Rate 78 Respiratory Rate 15 Blood Pressure 130/88 H Blood Pressure Mean 102 Pulse Ox 97 Oxygen Delivery Method Room Air Physical Exam Const Constitutional Narrative: Febrile. Confused. Follows some commands but is a extremely poor historian at this time. Moves all extremities spontaneously. HEENT normocephalic and head/scalp atraumatic Eyes EOMs intact bilaterally Eyes Narrative: No icterus Neck no lymphadenopathy Neck Narrative: No thyromegaly Resp normal respiratory effort, no retractions, no use of accessory muscles and clear to auscultation bilaterally Cardio regular rate and regular rhythm GI normal to inspection, nondistended, normoactive bowel sounds, soft to palpation, non-tender and non-distended Extremity normal to inspection and no clubbing, cyanosis or edema Neuro Neuro Narrative: Confused. Who is obscuring spontaneously. Sensorium / Orientation: awake Results Lab / Micro Data Attestation: I reviewed the patient's lab results. 03/16/24 21:20 03/16/24 21:20 Labs: Laboratory Results - last 24 hr 03/16/24 21:20: WBC 7.0, RBC 4.02 L, Hgb 11.4 L, Hct 34.5 L, MCV 85.8, MCH 28.4, MCHC 33.0, RDW Std Deviation 43.0, RDW Coeff of [place] 13.6, Plt Count 299, MPV 8.8, Immature Gran % (Auto) 0.300, Neut % (Auto) 77.6 H, Lymph % (Auto) 11.9 L, [place] % (Auto) 9.2, Eos % (Auto) 0.6, Baso % (Auto) 0.4, Absolute Neuts (auto) 5.4, Absolute Lymphs (auto) 0.83, Nucleated RBC % 0, Sodium 130 L, Potassium 4.3, Chloride 96 L, Carbon Dioxide 26.0, Anion Gap 8, BUN 29 H, Creatinine 1.27, Est GFR (MDRD) Af Amer 72, Est GFR (MDRD) Non-Af 59 L, BUN/Creatinine Ratio 22.8 H, Glucose 115 H, Calcium 9.8, Ammonia 21.0, TSH 1.53 03/16/24 21:54: Lactic Acid 1.3, Procalcitonin 0.08, Ethyl Alcohol < 3.0 03/16/24 22:43: Urine Color Yellow, Urine Clarity Clear, Urine pH 7.0, Ur Specific [place] 1.010, Urine Protein 15 H, Urine Glucose (UA) Normal, Urine Ketones 5 H, Urine Occult Blood Negative, Urine Nitrite Negative, Urine Bilirubin Negative, Urine Urobilinogen Normal, Ur Leukocyte Esterase Negative, Urine RBC 0 SEEN, Urine WBC 0 SEEN, Ur Squamous Epith Cells 0 SEEN, Urine Bacteria 0 SEEN, Urine Mucus 0 SEEN, Urine Opiates Screen NEGATIVE, Urine Methadone Screen NEGATIVE, Ur Barbiturates Screen NEGATIVE, Ur Phencyclidine Scrn NEGATIVE, Ur Amphetamines Screen NEGATIVE, MDMA (Ecstasy) Screen NEGATIVE, U Benzodiazepines Scrn NEGATIVE, Urine Cocaine Screen NEGATIVE, U Cannabinoids Screen POSITIVE H, Ur Drug Screen Comment ABG Data ABG results: ABG 03/16/24 21:53 Specimen Type NORMA Sample Site Not entered VBG pH 7.47 H VBG pO2 42 H VBG HCO3 24 VBG Total CO2 25 VBG O2 Sat (Calc) 81 H VBG Base Excess 1 POC Mix VBG pCO2 Pt Tmp 33.7 L O2 Delivery Device Room Air Imaging Radiology Impression Brain CT 03/16/24 21:29 IMPRESSION: Age-related changes of the brain. Electronically Signed: Logan Eaton DO at 23:14 EDT , Lumbar Spine CT 03/16/24 21:29 IMPRESSION: Degenerative and postsurgical changes of the lumbar spine. Correlation with MRI is recommended if there is clinical concern for infection. Electronically Signed: Logan Eaton DO at 23:28 EDT , Chest X-Ray 03/16/24 22:10 IMPRESSION: No radiographic evidence of acute cardiopulmonary disease. Electronically Signed: Donald Villegas MD at 0:25 EDT , Assessment & Plan Assessment/Plan (1) Acute metabolic encephalopathy: PLAN: Acute metabolic encephalopathy likely some component of toxic encephalopathy. Etiology of the metabolic encephalopathy is likely an underlying infection. As to what that infection is unclear at this time. Patient also takes numerous medications that are probably have some contributing factor to some degree but are unlikely the ultimate etiology of his profound confusion. Those medications include baclofen, duloxetine, gabapentin, Percocets and trazodone. Those medications will be held for now. Patient has no meningismus and a straight leg raise was negative. So I do not feel that he has meningitis at this time. May also be complicated by his use of marijuana Gummies. thinks that was if couple days ago but she is unsure if he took any recently. So it is unclear how much cannabinoids, if at all, or contributed to this confusion. Monitor him supportively in regards to holding those medications as above. Seeing how his fever overall improved. If no improvement then may need to because of consideration for further neurologic evaluation. I will give him some more IV fluids. (2) Pyrexia: PLAN: Patient does have a history of vertebral osteomyelitis and states that he had a very similar presentation when he had it last time. CAT scan emergency room did not show any acute process. Blood cultures were drawn. Chest x-ray was negative. Urinalysis was unremarkable. Plan: Check a COVID-19, check MRI of his lumbar spine to see if there is a recurrent osteomyelitis. Will also check ESR and CRP. Advised the emergency room physician to hold off on antibiotics at this time in case patient would require a bone biopsy. Though if the patient starts getting clinically worse then we may be left with no option other than to treat him with antibiotics. PLAN: Plan Chronic conditions * Diabetes mellitus type 2: Hold metformin. Sliding scale insulin VTE prophylaxis with enoxaparin. Charges/Coding Visit Charges Inpatient E&M: 29897 Init Hosp L3
--- NOTE | 2024-03-17 01:20 | ED.RN ---
VANCOMYCIN STOPPED DUE TO ORDER BEING CHANGED.
[2024-03-17] MEDS: 0.9% Normal Saline (1000mL) 1,000 ML 150 ML IV (02:08)
[2024-03-17 05:39] LABS: Absolute Lymphocyte Count 0.83 X10^3/uL (0.83-4.51); Basophil# 0.02 X10^3/uL; Basophil% 0.3 % (0-1); Eosinophil# 0.01 X10^3/uL; Eosinophils% 0.2 % (0-5); Hematocrit 32.2 % (40-54); Hemoglobin 10.6 g/dL (13.0-16.5); Lymphocyte # 0.83 X10^3/ul (0.83-4.51); Mean Corp Hgb Conc 32.9 g/dL (32-36); Mean Corpuscular Hgb 28.4 pg (27.0-32.0); Mean Corpuscular Volume 86.3 fL (80-94); Mean Platelet Vol. 10.4 fl (6.2-12.0); Monocyte# 0.54 X10^3/uL; Monocyte% 8.4 % (0-10); NRBC Flagged by Analyzer 0 % (0-5); Neutrophil # 4.97 X10^3/uL (2.7-7.7); Neutrophil % 77.6 % (47-70); POSITIVE COUNT YES; RBC Distribution Width CV 13.2 % (11.6-14.6); RBC Distribution Width SD 41.8 fl (35.1-43.9); Red Blood Count 3.73 M/mm3 (4.6-6.2); White Blood Count 6.4 K/mm3 (4.4-11.0)
[2024-03-17 06:24] LABS: Differential Indicated SCAN CRITERIA MET
[2024-03-17 06:40] LABS: Platelet Estimate ADEQUATE (ADEQ)
[2024-03-17 06:48] LABS: Bedside Glucose 133 mg/dL (74-106)
[2024-03-17 07:22] LABS: ALB/GLOB Ratio 1.1 RATIO (0.9-2.4); AST(SGOT) 26 U/L (15-37); Alanine Aminotransfer ALT/SGPT 21 U/L (16-61); Albumin, Serum 3.4 g/dL (3.2-5.0); Alkaline Phosphatase 73 U/L (45-117); Anion Gap 10 (5-15); BUN 25 mg/dL (7-18); BUN/Creat Ratio 22.7 RATIO (10-20); Calcium,Total 8.3 mg/dL (8.5-10.1); Chloride 100 mmol/L (98-107); EST Glomerular Filtration Rate 70 mL/min (>60); Est Glom Filt Rate - Afr Amer 85 mL/min (>60); Estimated Creatinine Clearance 64.52 ml/min; Glucose 112 mg/dL (74-106); Potassium 4.1 mmol/L (3.5-5.1); Protein, Total 6.4 g/dL (6.4-8.2); Sodium Level 132 mmol/L (136-145)
[2024-03-17] MEDS: Enoxaparin 40 MG/0.4 ML Syringe SC (09:54)
[2024-03-17] MEDS: 0.9% Saline Lock 10 ML Syringe IV ×2 (09:54→13:55)
[2024-03-17 11:20] LABS: Bedside Glucose 120 mg/dL (74-106)
--- NOTE | 2024-03-17 11:47 | PN.HOSP_ITS ---
Reason for Visit Reason for Visit: Diagnoses Metabolic encephalopathy (03/17/24) Fever, unspecified (03/17/24) Subjective Subjective Patient admitted overnight for worsening confusion. Saw patient at bedside this morning, friend present. Patient was laying in bed and in no acute distress. However, patient was only moaning when asked several questions and did not give any meaningful responses. He was not able to make appropriate eye contact with me with questions. Per nursing staff, patient did apparently deny any acute pain this morning. On exam, spine was palpated from C-spine down to sacrum and there was no significant pain response from patient at any point. Talked with patient's friend briefly, who noted that he saw patient a few days ago and patient was completely alert and oriented at that time, much different than his current mental status. No other acute concerns. Objective Data Objective Data Vital Signs: Vital Signs Temp Pulse Resp BP Pulse Ox O2 Del Method 98.0 F 73 18 116/63 95 Room Air 03/17/24 09:53 03/17/24 09:53 03/17/24 09:53 03/17/24 09:53 03/17/24 09:53 03/17/24 09:53 Oxygen Delivery Method Room Air Weight: 73 kg Body Mass Index (BMI) 23.1 Intake & Output: Intake and Output for Last 24 Hours 03/15/24 03/16/24 03/17/24 23:59 23:59 23:59 Intake Total 80 / 80 1959 Balance 80 / 80 1959 Lab / Micro Data 03/17/24 04:34 03/17/24 04:34 Labs: Laboratory Results - last 24 hr 03/16/24 21:20: WBC 7.0, RBC 4.02 L, Hgb 11.4 L, Hct 34.5 L, MCV 85.8, MCH 28.4, MCHC 33.0, RDW Std Deviation 43.0, RDW Coeff of Frankie 13.6, Plt Count 299, MPV 8.8, Immature Gran % (Auto) 0.300, Neut % (Auto) 77.6 H, Lymph % (Auto) 11.9 L, Fallon % (Auto) 9.2, Eos % (Auto) 0.6, Baso % (Auto) 0.4, Absolute Neuts (auto) 5.4, Absolute Lymphs (auto) 0.83, Nucleated RBC % 0, Sodium 130 L, Potassium 4.3, Chloride 96 L, Carbon Dioxide 26.0, Anion Gap 8, BUN 29 H, Creatinine 1.27, Est GFR (MDRD) Af Amer 72, Est GFR (MDRD) Non-Af 59 L, BUN/Creatinine Ratio 22.8 H, Glucose 115 H, Calcium 9.8, Ammonia 21.0, TSH 1.53 03/16/24 21:54: Lactic Acid 1.3, Procalcitonin 0.08, Ethyl Alcohol < 3.0 03/16/24 22:43: Urine Color Yellow, Urine Clarity Clear, Urine pH 7.0, Ur Specific [place] 1.010, Urine Protein 15 H, Urine Glucose (UA) Normal, Urine Ketones 5 H, Urine Occult Blood Negative, Urine Nitrite Negative, Urine Bilirubin Negative, Urine Urobilinogen Normal, Ur Leukocyte Esterase Negative, Urine RBC 0 SEEN, Urine WBC 0 SEEN, Ur Squamous Epith Cells 0 SEEN, Urine Bacteria 0 SEEN, Urine Mucus 0 SEEN, Urine Opiates Screen NEGATIVE, Urine Methadone Screen NEGATIVE, Ur Barbiturates Screen NEGATIVE, Ur Phencyclidine Scrn NEGATIVE, Ur Amphetamines Screen NEGATIVE, MDMA (Ecstasy) Screen NEGATIVE, U Benzodiazepines Scrn NEGATIVE, Urine Cocaine Screen NEGATIVE, U Cannabinoids Screen POSITIVE H, Ur Drug Screen Comment 03/17/24 04:34: WBC 6.4, RBC 3.73 L, Hgb 10.6 L, Hct 32.2 L, MCV 86.3, MCH 28.4, MCHC 32.9, RDW Std Deviation 41.8, RDW Coeff of Frankie 13.2, Plt Count TNP, MPV 10.4, Immature Gran % (Auto) 0.500, Neut % (Auto) 77.6 H, Lymph % (Auto) 13.0 L, Fallon % (Auto) 8.4, Eos % (Auto) 0.2, Baso % (Auto) 0.3, Absolute Neuts (auto) 5.0, Absolute Lymphs (auto) 0.83, Nucleated RBC % 0, Platelet Estimate ADEQUATE, Sodium Cancelled 03/17/24 04:34: Sodium 132 L, Potassium Cancelled 03/17/24 04:34: Potassium 4.1, Chloride Cancelled 03/17/24 04:34: Chloride 100, Carbon Dioxide Cancelled 03/17/24 04:34: Carbon Dioxide 22.0, Anion Gap Cancelled 03/17/24 04:34: Anion Gap 10, BUN Cancelled 03/17/24 04:34: BUN 25 H, Creatinine Cancelled 03/17/24 04:34: Creatinine 1.10, Estim Creat Clear Calc Cancelled 03/17/24 04:34: Estim Creat Clear Calc 64.52, Est GFR (MDRD) Af Amer Cancelled 03/17/24 04:34: Est GFR (MDRD) Af Amer 85, Est GFR (MDRD) Non-Af Cancelled 03/17/24 04:34: Est GFR (MDRD) Non-Af 70, BUN/Creatinine Ratio Cancelled 03/17/24 04:34: BUN/Creatinine Ratio 22.7 H, Glucose Cancelled 03/17/24 04:34: Glucose 112 H, Calcium Cancelled 03/17/24 04:34: Calcium 8.3 L, Total Bilirubin Cancelled 03/17/24 04:34: Total Bilirubin 1.30 H, AST Cancelled 03/17/24 04:34: AST 26, ALT Cancelled 03/17/24 04:34: ALT 21, Alkaline Phosphatase Cancelled 03/17/24 04:34: Alkaline Phosphatase 73, Total Protein Cancelled 03/17/24 04:34: Total Protein 6.4, Albumin Cancelled 03/17/24 04:34: Albumin 3.4, Globulin Cancelled 03/17/24 04:34: Globulin 3.0, Albumin/Globulin Ratio Cancelled 03/17/24 04:34: Albumin/Globulin Ratio 1.1 03/17/24 06:30: POC Glucose 133 H 03/17/24 10:53: POC Glucose 120 H Micro: Microbiology 03/17/24 02:00 Nasal Secretion SARS-CoV-2 Antigen (Rapid) - Final ABG Data ABG results: ABG 03/16/24 21:53 Specimen Type NORMA Sample Site Not entered VBG pH 7.47 H VBG pO2 42 H VBG HCO3 24 VBG Total CO2 25 VBG O2 Sat (Calc) 81 H VBG Base Excess 1 POC Mix VBG pCO2 Pt Tmp 33.7 L O2 Delivery Device Room Air Radiography Diagnostic Testing: Radiology Impression Brain CT 03/16/24 21:29 IMPRESSION: Age-related changes of the brain. Electronically Signed: Logan Eaton DO at 23:14 EDT , Lumbar Spine CT 03/16/24 21:29 IMPRESSION: Degenerative and postsurgical changes of the lumbar spine. Correlation with MRI is recommended if there is clinical concern for infection. Electronically Signed: Logan Eaton DO at 23:28 EDT , Chest X-Ray 03/16/24 22:10 IMPRESSION: No radiographic evidence of acute cardiopulmonary disease. Electronically Signed: Donald Villegas MD at 0:25 EDT , Physical Exam Const alert and no apparent distress Constitutional Narrative: Elderly male, chronically ill and thin appearing, laying in bed and in no acute distress but only moaning with responses to questions and not making appropriate eye contact. Orientation / Consciousness: confused HEENT normocephalic, head/scalp atraumatic and nasal mucous membranes and turbinates normal Eyes PERRL and conjunctivae normal Neck full ROM Chest inspection of chest normal Resp normal respiratory effort, normal air movement, no use of accessory muscles and clear to auscultation bilaterally Cardio regular rate, regular rhythm, no murmurs and peripheral pulses 2+ throughout GI normal to inspection, nondistended, normoactive bowel sounds, soft to palpation, non-tender and non-distended Back/Spine normal ROM Back/Spine Narrative: No tenderness to palpation from C-spine through L-spine. Extremity normal to inspection and no pedal edema Assessment & Plan Assessment/Plan (1) Acute metabolic encephalopathy: (2) Pyrexia: (3) Osteomyelitis of lumbar spine: PLAN: Plan Patient is a 68-year-old male who presented [facility] ED on 03/16/2024 with altered mental status. 1. Acute metabolic encephalopathy with pyrexia, concern for meningitis versus recurrent vertebral osteomyelitis ? Unclear etiology. Patient remains encephalopathic on hospital day 2, alert but only moaning in response to questions and not making appropriate eye contact. Have concern for either recurrent vertebral osteomyelitis versus possible meningitis given fevers on admission and altered mental status with no clear source of infection. Cannot rule out some degree of toxic encephalopathy due to home medications noted below. Unfortunately, unable to have MRI brain/L- spine done today. Planning for MRI tomorrow and will also order LP to have done tomorrow. Will empirically start treatment for meningitis with IV vancomycin, ceftriaxone, ampicillin and acyclovir. Neurology consulted. Patient unable to safely take p.o. medications at this time, all home medications on hold. 2. Mild hyponatremia ? Sodium 130 on admit, improved to 132 on hospital day 2. Likely due to recent poor p.o. intake and possible infection as noted above. Monitor daily BMP. 3. Chronic back pain with debility ? PT/OT/case management consulted. Home regimen of baclofen 5 mg twice daily, duloxetine 30 mg daily, gabapentin 300 mg 3 times daily, Percocet 1 tab twice daily, trazodone at night. All of these medications are on hold currently as patient is unable to take in p.o. Further workup as noted above. Chronic medical conditions: ? Type 2 diabetes mellitus: Home regimen of metformin 500 mg twice daily. Holding home metformin, sliding scale insulin while inpatient. ? BPH with obstructive symptoms: Continue home Flomax. ? Hyperlipidemia: Continue home statin. DVT prophylaxis: Lovenox CODE STATUS: Full code, unverified Expected disposition: TBD Total clinical time spent by myself addressing the patient's medical issues, reviewing all the data, and collaborating with patient's care team: 35 minutes. Charges/Coding Visit Charges Inpatient E&M: 23582 Subs Hosp L2
[2024-03-17] MEDS: DEXTROSE 5% IV ×2 (13:54→21:30)
[2024-03-17] MEDS: Ceftriaxone 2 GM in 0.9% Normal Saline (50mL MB+) 50 ML IV ×2 (13:54→21:30)
[2024-03-17] MEDS: WATER IV ×2 (13:54→21:30)
[2024-03-17] MEDS: ACYCLOVIR IV ×2 (13:54→21:30)
[2024-03-17] MEDS: Ampicillin 2 GM in 0.9% Normal Saline (100mL MB+) 100 ML IV ×2 (14:55→18:04)
[2024-03-17] MEDS: Vancomycin HCl 1,500 MG in 0.9% Normal Saline (500mL Bag) 500 ML 250 MG IV (15:31)
--- NOTE | 2024-03-17 16:59 | PCM.RX.CS ---
Consult Antibiotic Management Pharmacy has been consulted to manage selected antibiotic: Vancomycin Type of Intervention Type of Consult: New start Suspected Infection Suspected Infection: Meningitis Labs Labs: Sodium 132 mmol/L (136-145) L 03/17/24 04:34 Sodium Cancelled 03/17/24 04:34 Potassium 4.1 mmol/L (3.5-5.1) 03/17/24 04:34 Potassium Cancelled 03/17/24 04:34 Chloride 100 mmol/L (98-107) 03/17/24 04:34 Chloride Cancelled 03/17/24 04:34 Carbon Dioxide 22.0 mmol/L (21.0-32.0) 03/17/24 04:34 Carbon Dioxide Cancelled 03/17/24 04:34 Anion Gap 10 (5-15) 03/17/24 04:34 Anion Gap Cancelled 03/17/24 04:34 BUN 25 mg/dL (7-18) H 03/17/24 04:34 BUN Cancelled 03/17/24 04:34 Creatinine 1.10 mg/dL (0.70-1.30) 03/17/24 04:34 Creatinine Cancelled 03/17/24 04:34 Est GFR (MDRD) Af Amer 85 mL/min (>60) 03/17/24 04:34 Est GFR (MDRD) Af Amer Cancelled 03/17/24 04:34 Est GFR (MDRD) Non-Af 70 mL/min (>60) 03/17/24 04:34 Est GFR (MDRD) Non-Af Cancelled 03/17/24 04:34 BUN/Creatinine Ratio 22.7 RATIO (10-20) H 03/17/24 04:34 BUN/Creatinine Ratio Cancelled 03/17/24 04:34 Glucose 112 mg/dL (74-106) H 03/17/24 04:34 Glucose Cancelled 03/17/24 04:34 Microbiology Microbiology: Microbiology 03/17/24 02:00 Nasal Secretion SARS-CoV-2 Antigen (Rapid) - Final Goal Trough Goal Trough: 15-20 mcg/mL Pharmacy Plan for Drug Dosing Pharmacy Plan for Drug Dosing: NEW START IV VANCOMYCIN Consulting Physician: Dr. Pacheco Indication: R/O meningitis Goal Trough: 15-20 SrCr: 1.1 CrCl: 65 mL/min Comments: Patient was ordered a loading dose of 1500mg IV x1 which was administered 03/17/24 @1531. Of note; this is slightly lower than the recommended dose of 1750mg because the patient also had a x1 dose of vancomycin 1000mg IV x1 from the ED yesterday. Since the patient is being R/O for meningitis, did not want to just start scheduled dosing, which is why the patient got re-loaded with a slightly lower dose to account for the vancomycin he got yesterday. Vancomycin Dose: 750mg IV Q12hr to start 03/18/24 @0330 Pending Level: 03/19/24 @0300, prior to 4th dose of new regimen. Pharmacy Service will continue to monitor and adjust dosing as required.
[2024-03-17 17:16] LABS: Bedside Glucose 125 mg/dL (74-106)
[2024-03-18] MEDS: Ampicillin 2 GM in 0.9% Normal Saline (100mL MB+) 100 ML IV ×5 (00:14→23:38)
[2024-03-18 03:00] VITALS: BP 132/80; PULSE 68; RESP 17; TEMP 37; O2SAT 99
[2024-03-18] MEDS: Vancomycin HCl 750 MG in 0.9% Normal Saline (250mL Bag) 250 ML 250 MG IV ×2 (03:02→15:09)
[2024-03-18 03:25] VITALS: BP 132/80; PULSE 68; RESP 17; TEMP 37; O2SAT 99
[2024-03-18] MEDS: Acetaminophen 650 MG Suppository RC (03:30)
[2024-03-18] MEDS: ACYCLOVIR IV ×3 (05:37→21:39)
[2024-03-18] MEDS: DEXTROSE 5% IV ×3 (05:37→21:39)
[2024-03-18] MEDS: WATER IV ×3 (05:37→21:39)
[2024-03-18 06:25] LABS: Anion Gap 9 (5-15); BUN 23 mg/dL (7-18); BUN/Creat Ratio 28.9 RATIO (10-20); Calcium,Total 8.4 mg/dL (8.5-10.1); Chloride 98 mmol/L (98-107); EST Glomerular Filtration Rate 102 mL/min (>60); Est Glom Filt Rate - Afr Amer 124 mL/min (>60); Estimated Creatinine Clearance 88.72 ml/min; Glucose 110 mg/dL (74-106); Sodium Level 130 mmol/L (136-145)
[2024-03-18 06:28] LABS: Bedside Glucose 132 mg/dL (74-106)
[2024-03-18 07:51] LABS: Magnesium 1.9 mg/dL (1.6-2.6)
--- NOTE | 2024-03-18 08:00 | MRI_ITS ---
STUDY: MRI LUMBAR SPINE WITH AND WITHOUT CONTRAST REASON FOR EXAM: Male, 68 years old. fever. Osteomyelitis -- change to w/ow per dr parker campbell TECHNIQUE: Standardized fat and water weighted pulse sequences were obtained in the sagittal and axial planes. IV 14 ml Clariscan was administered for the contrast portion of the examination. COMPARISON: MRI lumbar spine with and without contrast 01/31/2024. FINDINGS: T11-T12 and T12-L1: (Sagittal only). Normal endplates. Normal disc height, hydration and morphology. No ventral extradural defects. Normal central canal and bilateral lateral recesses. Normal bilateral intervertebral neural foramina. Normal lumbar lordosis. There is no substantial scoliosis. Normal conus medullaris that terminates at the upper L1 vertebral body level. L1-2: Normal endplates. Mild disc space height narrowing. No ventral extradural defect. Normal facet joints. Normal central canal and bilateral lateral recesses. Normal bilateral intervertebral neuroforamina. L2-3: Prominent anterior marginal spurs. Normal endplates. Pronounced disc space height narrowing, increasing towards the right side. Grade 1 degenerative retrolisthesis of L2 on L3 is unchanged. Postsurgical absence of the lamina. Capacious central canal. Normal bilateral lateral recesses. Mild stenosis of the bilateral intervertebral neuroforamina are unchanged. L3-4: Mild Modic type II degenerative vertebral marrow fat infiltration underneath the right half of the L3 inferior endplate. Metallic screw causing signal distortion artifacts on the upper L4 vertebral body and the L3 superior endplate. Pronounced disc space height narrowing, increasing towards the right side. Mild degenerative retrolisthesis of L3 on L4 is unchanged. Postsurgical absence of the spinous processes and lamina. Capacious central canal. Normal bilateral lateral recesses. Moderately pronounced stenosis of the right intervertebral neuroforamen is unchanged. Mild stenosis of the left intervertebral neuroforamen is unchanged. L4-5: Decreasing edema of the L4 and L5 vertebral bodies. Disc implant inside the disc space is unchanged. Metallic rods and pedicular screws causing signal distortion artifacts. Capacious central canal. Normal bilateral lateral recesses. Moderately pronounced stenosis of the right intervertebral neuroforamen and moderate stenosis of the left intervertebral neuroforamen are unchanged. L5-S1: Normal endplates. Normal disc height, hydration and morphology. Moderate right degenerative facet arthropathy. Mild left degenerative facet arthropathy. Capacious central canal. Normal bilateral lateral recesses. Moderate stenosis of the left intervertebral neuroforamen. Normal right intervertebral neuroforamen. This level is unchanged. Normal visualized sacral ala. Fatty infiltration of the posterior paraspinal muscles at the L4-L5 disc space level and caudally. This is unchanged. Following IV contrast administration, there are no abnormally enhancing lesions intradurally and extradurally. MRI/Spine Lumbar W/WO Contrast IMPRESSION: 1. Improving edema of the L4 and L5 vertebral bodies. No suspicious discitis or vertebral body osteomyelitis. 2. No abnormally enhancing lesions intradurally and extradurally. 3. Moderately pronounced stenosis of the right L4-L5 intervertebral neuroforamen and moderate stenosis of the left intervertebral neuroforamen are unchanged. 4. Pronounced L3-L4 degenerative disc space height narrowing, mild degenerative retrolisthesis of L3 on L4 and moderately pronounced stenosis of right intervertebral neuroforamen are unchanged. 5. Grade 1 degenerative retrolisthesis of L2 on L3 and mild stenosis of the bilateral intervertebral neuroforamina are unchanged. Electronically Signed: Hardy Khan MD at 11:14 EDT ,
[2024-03-18] MEDS: HYDROmorphone 0.5 MG/0.5 ML SYRINGE IV ×3 (09:01→21:38)
[2024-03-18] MEDS: Ondansetron 4 MG/2 ML Vial IV (09:07)
[2024-03-18 09:25] VITALS: BP 128/76; PULSE 71; RESP 18; TEMP 37; O2SAT 98
--- NOTE | 2024-03-18 09:45 | MRI_ITS ---
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 CONTRAST: IV 14ml Clariscan COMPARISON: MRI brain without contrast 10/23/2023. FINDINGS: BRAIN AND EXTRA-AXIAL SPACES: Nonenhancing T2 FLAIR hyperintensity in the right centrum semiovale this chronic ischemic change. No mass effects. No midline shift. Following IV contrast administration, there are no abnormally enhancing lesions intra-axially and extra-axially. No communicating or noncommunicating hydrocephalus. No intra- or extra-axial hemorrhage. Posterior fossa structures are unremarkable. Basal cisterns are patent. SELLA: Unremarkable. Normal sella turcica, pituitary gland, infundibular stalk, optic chiasm and hypothalamus. AUDITORY SYSTEM: Unremarkable. The internal auditory canals are patent. BONES/JOINTS: Unremarkable. No discrete lytic or blastic abnormalities. SINUSES: Unremarkable as visualized. Clear. MASTOID AIR CELLS: Unremarkable as visualized. Clear. ORBITS: Unremarkable as visualized. Both globes, extraocular muscles, optic nerves and retrobulbar fat appear unremarkable. VASCULATURE: Unremarkable as visualized. Normal flow voids in the major intracranial circulation. MRI/Brain W/WO Contrast IMPRESSION: 1. No MRI evidence of acute or subacute ischemic infarct or any abnormally enhancing lesions intra-axially and extra-axially. 2. Chronic white matter ischemic changes in the right centrum semiovale. 3. No significant interval change when compared to 10/23/2023. Electronically Signed: Hardy Khan MD at 15:35 EDT ,
[2024-03-18] MEDS: Potassium Chloride 10mEq/100mL 10 MEQ/100 ML IV.SOLN. 100 MEQ IV BOLUS ×4 (11:19→14:19)
[2024-03-18] MEDS: Ceftriaxone 2 GM in 0.9% Normal Saline (50mL MB+) 50 ML IV ×2 (11:22→21:38)
[2024-03-18] MEDS: 0.9% Saline Lock 10 ML Syringe IV (11:37)
[2024-03-18] MEDS: Multivitamins,Therapeutic Tablet 1 TABLET PO (11:44)
[2024-03-18] MEDS: Tamsulosin HCl 0.4 MG Capsule PO (11:44)
[2024-03-18 12:21] LABS: Bedside Glucose 112 mg/dL (74-106)
--- NOTE | 2024-03-18 12:24 | PCM.PN.HOSP ---
Reason for Visit Reason for Visit: Diagnoses Metabolic encephalopathy (03/17/24) Osteomyelitis of vertebra, lumbar region (03/17/24) Fever, unspecified (03/17/24) Subjective Subjective Saw patient at bedside this morning, present. Patient's mental status was much improved today. He was sitting up in bed and fatigued appearing but was able to answer questions appropriately. He did report significantly more back pain this morning then was indicated yesterday. Have given a dose of IV Dilaudid before I saw him with some improvement. Patient had MRI brain and L-spine done when I saw him but reads were pending. Patient denied any fevers or chills. No other acute concerns today. Objective Data Objective Data Vital Signs: Vital Signs Temp Pulse Resp BP Pulse Ox O2 Del Method 98.6 F 68 17 132/80 H 99 Room Air 03/18/24 03:25 03/18/24 03:25 03/18/24 03:25 03/18/24 03:25 03/18/24 03:25 03/18/24 04:12 Oxygen Delivery Method Room Air Weight: 73 kg Body Mass Index (BMI) 23.1 Intake & Output: Intake and Output for Last 24 Hours 03/16/24 03/17/24 03/18/24 23:59 23:59 23:59 Intake Total 80 / 80 3319.2 / 3319.2 729.6 / 729.6 Output Total 725 / 975 250 / 250 Balance 80 / 80 2594.2 / 2344.2 479.6 / 479.6 Lab / Micro Data 03/17/24 04:34 03/18/24 05:23 Labs: Laboratory Results - last 24 hr 03/17/24 16:50: POC Glucose 125 H 03/18/24 05:23: Sodium 130 L, Potassium 3.0 L, Chloride 98, Carbon Dioxide 23.0, Anion Gap 9, BUN 23 H, Creatinine 0.80, Estim Creat Clear Calc 88.72, Est GFR (MDRD) Af Amer 124, Est GFR (MDRD) Non-Af 102, BUN/Creatinine Ratio 28.9 H, Glucose 110 H, Calcium 8.4 L, Magnesium 1.9 03/18/24 06:10: POC Glucose 132 H 03/18/24 11:16: POC Glucose 112 H Micro: Microbiology 03/17/24 02:00 Nasal Secretion SARS-CoV-2 Antigen (Rapid) - Final Radiography Diagnostic Testing: Radiology Impression Lumbar Spine MRI 03/18/24 08:00 IMPRESSION: 1. Improving edema of the L4 and L5 vertebral bodies. No suspicious discitis or vertebral body osteomyelitis. 2. No abnormally enhancing lesions intradurally and extradurally. 3. Moderately pronounced stenosis of the right L4-L5 intervertebral neuroforamen and moderate stenosis of the left intervertebral neuroforamen are unchanged. 4. Pronounced L3-L4 degenerative disc space height narrowing, mild degenerative retrolisthesis of L3 on L4 and moderately pronounced stenosis of right intervertebral neuroforamen are unchanged. 5. Grade 1 degenerative retrolisthesis of L2 on L3 and mild stenosis of the bilateral intervertebral neuroforamina are unchanged. Electronically Signed: Hardy Khan MD at 11:14 EDT , Physical Exam Const alert and no apparent distress Constitutional Narrative: Elderly male, chronically ill and thin appearing, much improved on 03/18, sitting up fairly comfortably in bed, fatigued but alert and answering questions appropriately, in no acute distress. HEENT normocephalic, head/scalp atraumatic and nasal mucous membranes and turbinates normal Eyes PERRL, EOMs intact bilaterally and conjunctivae normal Neck full ROM Chest inspection of chest normal Resp normal respiratory effort, normal air movement, no use of accessory muscles and clear to auscultation bilaterally Cardio regular rate, regular rhythm, no murmurs and peripheral pulses 2+ throughout GI normal to inspection, nondistended, normoactive bowel sounds, soft to palpation, non-tender and non-distended Back/Spine normal ROM Back/Spine Narrative: Mild tenderness palpation in L-spine, no other abnormalities. Extremity normal to inspection and no pedal edema Neuro no focal motor deficits and no sensory deficits noted Speech: speech normal Psych affect normal Assessment & Plan Assessment/Plan (1) Acute metabolic encephalopathy: (2) Pyrexia: (3) Osteomyelitis of lumbar spine: PLAN: Plan Patient is a 68-year-old male who presented [facility] ED on 03/16/2024 with altered mental status. 1. Acute metabolic encephalopathy with pyrexia, improving ? Neurology following. Patient encephalopathic on night of admission in hospital due to, was alert but only moaning in response to questions. Was empirically started on treatment for meningitis on 03/17 with IV vancomycin, ceftriaxone, ampicillin and acyclovir. Patient's mentation significantly improved on 03/18. MRI brain and L-spine with IV contrast on 03/18 with no acute findings. 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 However, no clear source of infection at this time. UA negative, chest x-ray benign, no abdominal symptoms since admission. Patient notably was on p.o. doxycycline 100 mg twice daily for several months leading up to this admission. Infectious disease consulted for further antibiotic recommendations. 2. Mild hyponatremia, stable ? Sodium 130 on admit, remaining stable. Likely due to recent poor p.o. intake and possible infection as noted above. Monitor daily BMP. 3. Acute on chronic back pain with debility ? PT/OT/case management following. Home regimen of baclofen 5 mg twice daily, duloxetine 30 mg daily, gabapentin 300 mg 3 times daily, Percocet 1 tab twice daily, trazodone at night. Patient very encephalopathic on admission as noted above, unclear if he was having back pain. With improvement of status on 03/18, patient began to report significantly more low back pain. MRI L-spine above notably with no acute findings. Will treat with scheduled Tylenol, lidocaine patch, oxycodone as needed, IV Dilaudid as needed for now. Chronic medical conditions: ? Type 2 diabetes mellitus: Home regimen of metformin 500 mg twice daily. Holding home metformin, sliding scale insulin while inpatient. ? BPH with obstructive symptoms: Continue home Flomax. ? Hyperlipidemia: Continue home statin. DVT prophylaxis: Lovenox CODE STATUS: Full code, unverified Expected disposition: TBD Total clinical time spent by myself addressing the patient's medical issues, reviewing all the data, and collaborating with patient's care team: 35 minutes. Charges/Coding Visit Charges Inpatient E&M: 29330 Subs Hosp L2
[2024-03-18] MEDS: oxyCODONE 5 MG Tablet PO ×3 (12:39→23:38)
[2024-03-18] MEDS: Acetaminophen 500 MG Tablet 1000 MG PO ×2 (12:46→21:39)
--- NOTE | 2024-03-18 13:06 | NURSING ---
03/18/24@1230- assisted [facility] tele neuro w/ c/s, will update dr. canales. will continue to monitor.
--- NOTE | 2024-03-18 13:10 | CASEMGMT ---
MATIAS SAUER Assessment: Face to Face with pt for initial transition planning/care coordination assessment. RN CM introduced self and role at [facility], pt voices understanding and consents to assessment. Pt is A&O x4 and answers all questions appropriately at this time. Pt lying in bed in pain, nurse made aware. Pt sitting at bedside, pt agreeable to answering questions with present. Care providers, pharmacy, and demographics verified/updated. Admitting Dx: Fever, encephalopathy. PCP: [facility] Specialists: Ruslan, Orthopedic; Jaja, Infectious Disease. Preferred Pharmacy: [facility]: yes LNOK: Living Arrangements: Pt lives with in a 2 story home. Pt states I with ADLs and IADLs. Transportation: Pt drives self and denies concerns with transportation. DME: Wheeled Walker, Cane, Shower Chair, Glucometer and supplies. HHC/SNF: Denies Hx of SNF, current pt for [facility] SN and PT. Pt states no concerns with going home at time of dc. Pt states no further concerns/needs. Pt denies wanting list of local [facility] providers, would like to resume with [facility] when discharged. CM to follow. Advised pt to ask CM if any further question/concerns/needs arise, voices understanding. Pt Goal: Home with [facility]. Plan: Home with family support and resume care with [facility] SN and PT. CM to follow plan of care. Funmi Kang RN, CM.
[2024-03-18] MEDS: HYDROmorphone 0.5 MG/0.5 ML SYRINGE 0.25 MG IV (13:31)
--- NOTE | 2024-03-18 13:56 | NURSING ---
03/18/24@1356- cbc ordered but not showing collected or resulted, results for bmp this am. called lab, lab will investigate. will continue to monitor.
--- NOTE | 2024-03-18 16:38 | CON.PCM.NE_ITS ---
Assessment and Plan: Neuro Assessment/Plan 68 M who had recurrent disc herniation, s/p repeat laminectomy L4-5 with discectomy and decompression of L5 nerve root in 07/2023, complicated by discitis and osteomyelitis in 10/2023 been on prolonged course of abx sincce, who is now again presenting with confusion in the setting of recent URI over the past week and intermitted fevers. He had mildly elevated temp of 38 upon presentation but otherwise his temp has been normal. He was started on Abx with [employer] coverage on Saturday 03/17. His MRI L spine showed improvment in edema and no concern for worsening osteomyelitis/discitis. MRI brain with no acute findings Today 03/18 he is doing much better has improved alert oriented with some mild confusion but doing much better. Unlikely to be [employer] infection give the dramatic improvement over night, and should be ok to deescalate antibiotics and can cover systemically if needed per primary team. I suspect his encephalopathy is toxic metabolic in the setting of underlying infection. We will follow clinically to make sure he continues to improve. Diagnosis: Encephalopathy I personally attended this patient and spent a total time of 45 minutes evaluating this patient including clinical assessment, review of chart, medical history imaging, and determining appropriate treatment and workup. HPI Consult Data Date of Consult: 03/18/24 HPI Narrative HPI Narrative: 68 M who had recurrent disc herniation, s/p repeat laminectomy L4-5 with discectomy and decompression of L5 nerve root in 07/2023, complicated by discitis and osteomyelitis in 10/2023 when he presented with confusion, who is now again presenting with mild fever 100.4 and confusion Per the , since the Osteo diagnosis, his back pain has never went away. He has been on IV Abx since October, and switched to oral 3 weeks ago. ? Per he has developed cough over the past week and has been intermittently feverish. His mental status was normal until Monday, when he started getting confused, and for the he seemed like as if it was similar to what happened in October when he presented with osteomyelitis. She brought him to the hospital. On Monday he got more confused. Infectious workup was negative for UA and CXR. WBC normal. He was started on Meningitis coverage yesterday Saturday 03/17. He is doing much better today more alert following commands. MRI L spine with improving edema and no findings concerning for recurrent osteo. MRI brain with no acute findings. His labs are not significant with normal white count, Cr, TSH. He has mild hyponatremia with Na 132. UA non-infectious. CXR with no acute findings At home he takes Baclofen 5 mg BID, Duloxetine, gabapentin, trazodone, Percocet. gives him his meds and she is confident he is taking prescribed, not missing meds and not taking extra meds. He also takes CBD gummies, but she hasn?t seen him take any on Monday or Monday. [facility] Medical History Vasovagal episode Pulse irregularity Bilirubinuria Contact with or exposure to other viral diseases Lumbosacral radiculopathy at L5 History of steroid therapy Smokeless tobacco use Tension headache Agent orange exposure Bilateral primary osteoarthritis of knee Wears hearing aid Cancer Alcohol use Diabetes Ambulates with cane Arthritis Prostate disease High cholesterol (~08/21/23) Restless legs Back pain Injury of head and neck Syncope History of IBS Shortness of breath on exertion History of pain when walking History of echocardiogram History of stress test Cardiology follow-up encounter Tear of medial meniscus of right knee Fibromyalgia BPH w urinary obs/LUTS Left knee DJD Right knee DJD Fusion of spine, cervical region Chondromalacia, right knee Chondromalacia, left knee Chondromalacia of both patellae COVID-19 virus detected (11/19/20) Nonrheumatic aortic (valve) stenosis with insufficiency Opioid dependence Obesity Asthma Hyperlipemia Essential (primary) hypertension Atherosclerotic heart disease of [place] coronary artery without angina pectoris Type 2 diabetes mellitus Spondylosis of lumbosacral region without myelopathy or radiculopathy Spinal stenosis of lumbosacral region Radiculopathy of lumbosacral region Degeneration of intervertebral disc of lumbosacral region Arthropathy of cervical facet joint Degeneration of cervical disc without myelopathy Cervical spondylosis Home Medications ?Medication ?Instructions ?Recorded ?Last Taken ?Type multivitamin 1 tab PO DAILY supplement 07/09/19 03/16/24 History handicap placard #1 ea 04/21/22 Unknown Rx blood sugar diagnostic (FreeStyle #100 ea 09/15/22 Unknown Rx Lite Strips) blood-glucose meter (FreeStyle #1 ea 09/15/22 Unknown Rx Lite Meter kit) fluticasone propionate 50 1 - 2 spray intranasal BID PRN 04/27/23 01/30/24 Rx mcg/actuation nasal allergies, congestion #16 grams spray,suspension atorvastatin 40 mg tablet 40 mg PO QHS CHOLESTEROL #90 tabs 08/21/23 03/15/24 Rx trazodone 50 mg tablet 50 - 100 mg (1 - 2 x 50 mg) PO QHS 08/21/23 03/15/24 Rx sleep #90 tabs metformin 500 mg tablet 500 mg PO BID DIABETIC 1 month #60 12/12/23 03/16/24 Rx tabs baclofen 5 mg tablet 5 mg PO BID PAIN 01/16/24 03/16/24 History sennosides 8.6 mg-docusate sodium 2 tab PO BID PRN constipation 10 01/23/24 01/30/24 Rx 50 mg tablet (Stool days #40 tabs Softener-Stimulant Laxative) albuterol sulfate 90 mcg/actuation 1 - 2 puff inhalation Q4H PRN 01/31/24 Unknown History aerosol inhaler Wheezing duloxetine 30 mg capsule,delayed 30 mg PO DAILY ANXIETY #90 caps 02/05/24 03/16/24 Rx release doxycycline hyclate 100 mg capsule 100 mg PO BID osteomyelitis 02/22/24 03/16/24 History gabapentin 300 mg capsule 300 mg PO TID pain 02/27/24 03/16/24 History linaclotide 72 mcg capsule 72 mcg PO DAILY PRN irritable colon 02/27/24 Unknown History (Linzess) oxycodone-acetaminophen 7.5 mg-325 1 tab PO BID pain 03/16/24 03/16/24 History mg tablet tamsulosin 0.4 mg capsule 0.4 mg PO DAILY BPH 03/16/24 03/16/24 History Allergy/AdvReac Type Severity Reaction Status Date / Time adhesive tape Allergy Rash Verified 03/16/24 20:58 sertraline (From Zoloft) AdvReac Unknown Verified 03/16/24 20:58 Family History Brother Heart disease Myocardial infarction 60's CAD (coronary artery disease) Father Myocardial infarction 65 CAD (coronary artery disease) Mother HLD (hyperlipidemia) when son was 16 following MVA, healthy aside HLD. Surgical History Hx of laminectomy S/P laminectomy Status post discectomy for herniated nucleus pulposus History of lateral meniscus repair of right knee (~2021) Hx laparoscopic cholecystectomy (~11/2022) Hx of bilateral cataract extraction H/O cervical spine surgery (08/2020) History of herniorrhaphy History of carpal tunnel release History of back surgery History of left heart catheterization (09/09/11) H/O coronary artery bypass surgery (09/14/11) Social History household members: spouse Smoking Status: Current every day smoker tobacco type: smokeless tobacco Smokeless tobacco user: chewing tobacco alcohol intake: current alcohol intake frequency: a few times a month substance use type: does not use caffeine: Yes Type: coffee Number of servings: 2 Vital Signs Vital Signs Vital Signs: 03/17/24 21:00 03/17/24 21:25 03/18/24 03:00 Temperature 97.9 F 97.9 F 98.6 F Temperature Source Temporal Temporal Oral Pulse Rate 75 75 68 Pulse Strength Respiratory Rate 17 18 17 Respiratory Effort Respiratory Depth Blood Pressure 114/80 114/80 132/80 H Blood Pressure Mean 91 91 97 Blood Pressure Source Monitor Blood Pressure Position Supine Blood Pressure Location Right Arm Pulse Ox 96 96 99 Oxygen Delivery Method Room Air Room Air Room Air 03/18/24 03:25 03/18/24 04:12 03/18/24 09:25 Temperature 98.6 F 98.6 F Temperature Source Oral Oral Pulse Rate 68 71 Pulse Strength Respiratory Rate 17 18 Respiratory Effort Normal Non-Labored Respiratory Depth Normal Blood Pressure 132/80 H 128/76 H Blood Pressure Mean 97 93 Blood Pressure Source Monitor Monitor Blood Pressure Position Semi-Fowlers Semi-Fowlers Blood Pressure Location Right Arm Left Arm Pulse Ox 99 98 Oxygen Delivery Method Room Air Room Air Room Air 03/18/24 10:00 Temperature Temperature Source Pulse Rate Pulse Strength Normal (2+) Respiratory Rate Respiratory Effort Respiratory Depth Blood Pressure Blood Pressure Mean Blood Pressure Source Blood Pressure Position Blood Pressure Location Pulse Ox Oxygen Delivery Method Weight Weight: 73 kg Body Mass Index (BMI) 23.1 EEG Results Procedure Details EEG Procedure Details: JARET FIGUEROA is a 68 year old M with a past medical history of , who presents for evaluation of Electroencephalogram on DATE at TIME Physical Exam Neuro Neuro Narrative: Exam performed with help of the nurse/JOSE ARMANDO present with patient on Tele site NEURO: AO to self and place. 2023. Follows commands, no aphasia/dysarthria. PERRL, EOMI. no gaze preference/nystagmus. Face symmetric, Intact facial sensation. Tongue midline. Head turning intact. Sensation: intact to light touch all over Motor: All extremities antigravity Lab / Micro Data 03/17/24 04:34 03/18/24 05:23 Labs: Laboratory Results - last 24 hr 03/17/24 16:50: POC Glucose 125 H 03/18/24 05:23: Sodium 130 L, Potassium 3.0 L, Chloride 98, Carbon Dioxide 23.0, Anion Gap 9, BUN 23 H, Creatinine 0.80, Estim Creat Clear Calc 88.72, Est GFR (MDRD) Af Amer 124, Est GFR (MDRD) Non-Af 102, BUN/Creatinine Ratio 28.9 H, G lucose 110 H, Calcium 8.4 L, Magnesium 1.9 03/18/24 06:10: POC Glucose 132 H 03/18/24 11:16: POC Glucose 112 H Imaging Radiology Impression Lumbar Spine MRI 03/18/24 08:00 IMPRESSION: 1. Improving edema of the L4 and L5 vertebral bodies. No suspicious discitis or vertebral body osteomyelitis. 2. No abnormally enhancing lesions intradurally and extradurally. 3. Moderately pronounced stenosis of the right L4-L5 intervertebral neuroforamen and moderate stenosis of the left intervertebral neuroforamen are unchanged. 4. Pronounced L3-L4 degenerative disc space height narrowing, mild degenerative retrolisthesis of L3 on L4 and moderately pronounced stenosis of right intervertebral neuroforamen are unchanged. 5. Grade 1 degenerative retrolisthesis of L2 on L3 and mild stenosis of the bilateral intervertebral neuroforamina are unchanged. Electronically Signed: Hardy Khan MD at 11:14 EDT , Brain MRI 03/18/24 09:45 IMPRESSION: 1. No MRI evidence of acute or subacute ischemic infarct or any abnormally enhancing lesions intra-axially and extra-axially. 2. Chronic white matter ischemic changes in the right centrum semiovale. 3. No significant interval change when compared to 10/23/2023. Electronically Signed: Hardy Khan MD at 15:35 EDT , Active Medications Active Medications Active Medications: Current Medications Generic Name Dose Route Start Last Admin Trade Name Freq PRN Reason Stop Dose Admin Acetaminophen 1,000 mg 03/17/24 06:00 03/18/24 12:46 Acetaminophen 500 Mg Tablet PO 1,000 mg Q8 AMADO Administration Acetaminophen 650 mg 03/18/24 03:14 03/18/24 03:30 Acetaminophen 650 Mg Suppository RC 650 mg Q4H PRN PRN Administration Pain 1-10 or Fever Albuterol Sulfate 2.5 mg 03/17/24 01:41 Albuterol 2.5 Mg/3 Ml Vial.Neb. INHALATION Q4H PRN PRN Wheezing Atorvastatin Calcium 40 mg 03/17/24 22:00 03/17/24 21:31 Atorvastatin Calcium 40 Mg Tablet PO Not Given QHS AMADO Enoxaparin Sodium 40 mg 03/17/24 10:00 03/18/24 12:28 Enoxaparin 40 Mg/0.4 Ml Syringe SC Not Given DAILY AMADO Fluticasone Propionate 1 - 2 spray 03/17/24 01:41 Fluticasone 0.05% 1 Mars Nasal.Sry NASAL BID PRN allergies, congestion Glucagon 1 mg 03/17/24 01:41 Glucagon 1 Mg/Ml Syringe IM X1 PRN HYPOGLYCEMIA Protocol Hydromorphone HCl 0.5 mg 03/18/24 15:25 Hydromorphone 0.5 Mg/0.5 Ml Syringe IV Q4H PRN PRN Pain Score 6-10 Dextrose 250 mls @ 0 mls/hr 03/17/24 01:41 Dextrose 10%-Water IV .Q0M PRN HYPOGLYCEMIA Protocol As Directed Sodium Chloride 250 mls @ 15 mls/hr 03/17/24 01:48 IV .[id number] PRN Additional IVPB Infusion Sodium Chloride 250 mls @ 15 mls/hr 03/17/24 01:48 IV .[id number] PRN Saline Flush Vancomycin IV-PHARMACY TO DOSE 500 mls @ 250 mls/hr 03/17/24 12:11 1 each/ Sodium Chloride IV PRN PRN Rx to Dose Protocol Ceftriaxone Sodium 2 gm/ 50 mls @ 100 mls/hr 03/17/24 13:00 03/18/24 11:52 Sodium Chloride IV Infused Q12 AMADO Infusion Ampicillin Sodium 2 gm/ Sodium 100 mls @ 200 mls/hr 03/17/24 13:00 03/18/24 12:18 Chloride IV Infused Q6 AMADO Infusion Acyclovir Sodium 730 mg/ 264.6 mls @ 264.6 mls/hr 03/17/24 13:00 03/18/24 14:39 Dextrose IV Infused Q8 AMADO Infusion Vancomycin HCl 750 mg/ Sodium 265 mls @ 250 mls/hr 03/18/24 03:30 03/18/24 15:09 Chloride IV 250 mls/hr Q12H AMADO Administration Ibuprofen 600 mg 03/17/24 01:41 Ibuprofen 600 Mg Tablet PO Q6H PRN PRN Pain Score 1-10, temp >101.3F Insulin Human Lispro 0 unit 03/17/24 07:00 03/18/24 12:00 Insulin Lispro 100 Unit/Ml Insuln.Pen SC Not Given TIDAC [facility] Protocol Lidocaine 1 patch 03/18/24 15:25 Lidocaine 5% Patch TOPICAL DAILY [facility] Protocol Linaclotide 72 mcg 03/17/24 01:41 Linaclotide 72 Mcg Capsule PO DAILY PRN irritable colon Multivitamins 1 tablet 03/17/24 08:00 03/18/24 11:44 Multivitamins,Therapeutic Tablet PO 1 tablet DAILYCM [facility] Administration Nutritional Formula (Lactose Free) 120 ml 03/17/24 12:00 03/18/24 11:36 Glucerna Shake 120 Ml Liquid PO Not Given TIDCM [facility] Ondansetron HCl 4 mg 03/17/24 01:41 03/18/24 09:07 Ondansetron 4 Mg/2 Ml Vial IV 4 mg Q8H PRN PRN Administration NAUSEA/VOMITING Oxycodone HCl 5 mg 03/18/24 12:27 03/18/24 12:39 Oxycodone 5 Mg Tablet PO 5 mg Q4H PRN PRN Administration Pain Score 4-10 Senna/Docusate Sodium 2 tablet 03/17/24 01:41 Senna/Docusate Sodium 1 Tablet PO BID PRN PRN constipation Sodium Chloride 10 - 40 ml 03/17/24 01:48 03/18/24 11:37 0.9% Saline Lock 10 Ml Syringe IV 40 ml UD PRN Administration SALINE FLUSH Tamsulosin HCl 0.4 mg 03/17/24 10:00 03/18/24 11:44 Tamsulosin Hcl 0.4 Mg Capsule PO 0.4 mg DAILY AMADO Administration Vancomycin Protocol 1 lab 03/19/24 01:00 Vancomycin Trough/Random Due MC 03/19/24 05:00 DAILY AMADO
[2024-03-18] MEDS: Lidocaine 5% Patch 1 PATCH TOPICAL (16:54)
[2024-03-18 17:07] LABS: Bedside Glucose 119 mg/dL (74-106)
[2024-03-18] MEDS: Atorvastatin Calcium 40 MG Tablet PO (21:40)
[2024-03-19] MEDS: 0.9% Saline Lock 10 ML Syringe IV (02:09)
[2024-03-19] MEDS: HYDROmorphone 0.5 MG/0.5 ML SYRINGE IV ×2 (02:09→09:12)
[2024-03-19 02:13] VITALS: BP 143/88; PULSE 65; RESP 18; TEMP 37.1; O2SAT 100
[2024-03-19 03:11] LABS: Hematocrit 31.7 % (40-54); Hemoglobin 11.1 g/dL (13.0-16.5); Mean Corpuscular Hgb 28.8 pg (27.0-32.0); Mean Corpuscular Volume 82.3 fL (80-94); Platelet Count 230 K/mm3 (150-450); RBC Distribution Width CV 12.9 % (11.6-14.6); Red Blood Count 3.85 M/mm3 (4.6-6.2); White Blood Count 6.1 K/mm3 (4.4-11.0)
[2024-03-19 03:30] LABS: Anion Gap 6 (5-15); BUN 13 mg/dL (7-18); BUN/Creat Ratio 16.6 RATIO (10-20); Calcium,Total 8.7 mg/dL (8.5-10.1); Chloride 95 mmol/L (98-107); Creatinine, Serum 0.78 mg/dL (0.70-1.30); EST Glomerular Filtration Rate 104 mL/min (>60); Est Glom Filt Rate - Afr Amer 126 mL/min (>60); Estimated Creatinine Clearance 88.72 ml/min; Glucose 116 mg/dL (74-106); Potassium 3.3 mmol/L (3.5-5.1); Sodium Level 129 mmol/L (136-145)
[2024-03-19 04:07] LABS: Vancomycin, Trough Level 12.1 ug/mL (5.0-15.0)
--- NOTE | 2024-03-19 04:16 | PCM.RX.CS ---
Consult Antibiotic Management Pharmacy has been consulted to manage selected antibiotic: Vancomycin Type of Intervention Type of Consult: Follow-up Suspected Infection Suspected Infection: Meningitis Labs Labs: Sodium 129 mmol/L (136-145) L 03/19/24 03:00 Potassium 3.3 mmol/L (3.5-5.1) L 03/19/24 03:00 Chloride 95 mmol/L (98-107) L 03/19/24 03:00 Carbon Dioxide 28.0 mmol/L (21.0-32.0) 03/19/24 03:00 Anion Gap 6 (5-15) 03/19/24 03:00 BUN 13 mg/dL (7-18) 03/19/24 03:00 Creatinine 0.78 mg/dL (0.70-1.30) 03/19/24 03:00 Est GFR (MDRD) Af Amer 126 mL/min (>60) 03/19/24 03:00 Est GFR (MDRD) Non-Af 104 mL/min (>60) 03/19/24 03:00 BUN/Creatinine Ratio 16.6 RATIO (10-20) 03/19/24 03:00 Glucose 116 mg/dL (74-106) H 03/19/24 03:00 Vancomycin Trough 12.1 ug/mL (5.0-15.0) 03/19/24 03:00 Microbiology Microbiology: Microbiology 03/17/24 02:00 Nasal Secretion SARS-CoV-2 Antigen (Rapid) - Final Dosing Weight Weight used for dosin kg Estimated Creatinine Clearance Estimated Creatinine Clearance: 89 Goal Trough Goal Trough: 15-20 mcg/mL Pharmacy Plan for Drug Dosing Pharmacy Plan for Drug Dosing: Vancomycin trough level of 12.1, drawn 12 hrs post-dose, was below the target range of 15-20. Will increase to 1000mg q12h, and will draw another trough prior to fourth dose of the new regimen. Pharmacy Service will continue to monitor and adjust dosing as required. Follow-Up Labs Follow-Up Labs: Trough: Vancomycin Date/Time Labs Ordered Labs to be done on [date and time ordered]: 03/20/24 @2793
[2024-03-19] MEDS: Vancomycin IV 1,000 MG/200 ML BAG 200 MG IV (04:27)
[2024-03-19] MEDS: WATER IV ×2 (05:35→21:23)
[2024-03-19] MEDS: oxyCODONE 5 MG Tablet PO ×2 (05:35→21:23)
[2024-03-19] MEDS: ACYCLOVIR IV ×2 (05:35→21:23)
[2024-03-19] MEDS: Ampicillin 2 GM in 0.9% Normal Saline (100mL MB+) 100 ML IV (05:35)
[2024-03-19] MEDS: DEXTROSE 5% IV ×2 (05:35→21:23)
[2024-03-19] MEDS: Acetaminophen 500 MG Tablet 1000 MG PO ×3 (05:36→21:22)
[2024-03-19] MEDS: Insulin Lispro 100 UNIT/ML INSULN.PEN SC ×2 (06:46→11:30)
[2024-03-19] MEDS: 0.9% Normal Saline (250mL Bag) 250 ML 15 ML IV ×2 (06:51→06:53)
[2024-03-19 07:13] LABS: Bedside Glucose 163 mg/dL (74-106)
[2024-03-19 08:15] VITALS: BP 147/94; PULSE 66; RESP 18; TEMP 36.7; O2SAT 100
[2024-03-19] MEDS: Potassium Chloride Oral Tablet 20 MEQ 40 MEQ PO (09:49)
[2024-03-19] MEDS: Enoxaparin 40 MG/0.4 ML Syringe SC (09:50)
[2024-03-19] MEDS: Multivitamins,Therapeutic Tablet 1 TABLET PO (09:50)
[2024-03-19] MEDS: Tamsulosin HCl 0.4 MG Capsule PO (09:50)
[2024-03-19] MEDS: Lidocaine 5% Patch 1 PATCH TOPICAL (09:51)
--- NOTE | 2024-03-19 10:37 | CON.PCM.ID_ITS ---
Assessment & Plan Assessment/Plan (1) Acute metabolic encephalopathy: PLAN: Resolving. No further fever. Possible aseptic meningitis. Did have spine injection a week ago, and timing may fit with that being source. Will narrow abx to acyclovir and ceftriaxone. If he worsens, will need LP. Will follow, thank you (2) Pyrexia: (3) Osteomyelitis of lumbar spine: HPI Consult Data Date of Consult: 03/19/24 HPI Narrative Reason for Consultation: fever HPI Narrative: JARET FIGUEROA, is a 68 M with recent admissions for lumbar osteo with hardware present. Completed iv abx a month ago, changed to po doxy for suppression. Had injection into L spine a week ago. Some recent URI as well. Over past 4-5 days, progressive fever, confusion, headache, lethargy. Taken to ED, admitted on vanc, amp, ceftriaxone, acyclovir. Feeling better, seen by neuro consult. Some low back pain. No sick contacts, no other med changes, no tick bites. Some mosquito bites recently. No h/o cold sores. Full ROS performed and neg except as noted above. [facility] Medical History Vasovagal episode Pulse irregularity Bilirubinuria Contact with or exposure to other viral diseases Lumbosacral radiculopathy at L5 History of steroid therapy Smokeless tobacco use Tension headache Agent orange exposure Bilateral primary osteoarthritis of knee Wears hearing aid Cancer Alcohol use Diabetes Ambulates with cane Arthritis Prostate disease High cholesterol (~08/21/23) Restless legs Back pain Injury of head and neck Syncope History of IBS Shortness of breath on exertion History of pain when walking History of echocardiogram History of stress test Cardiology follow-up encounter Tear of medial meniscus of right knee Fibromyalgia BPH w urinary obs/LUTS Left knee DJD Right knee DJD Fusion of spine, cervical region Chondromalacia, right knee Chondromalacia, left knee Chondromalacia of both patellae COVID-19 virus detected (11/19/20) Nonrheumatic aortic (valve) stenosis with insufficiency Opioid dependence Obesity Asthma Hyperlipemia Essential (primary) hypertension Atherosclerotic heart disease of [place] coronary artery without angina pectoris Type 2 diabetes mellitus Spondylosis of lumbosacral region without myelopathy or radiculopathy Spinal stenosis of lumbosacral region Radiculopathy of lumbosacral region Degeneration of intervertebral disc of lumbosacral region Arthropathy of cervical facet joint Degeneration of cervical disc without myelopathy Cervical spondylosis Home Medications ?Medication ?Instructions ?Recorded ?Last Taken ?Type multivitamin 1 tab PO DAILY supplement 07/09/19 03/16/24 History handicap placard #1 ea 04/21/22 Unknown Rx blood sugar diagnostic (FreeStyle #100 ea 09/15/22 Unknown Rx Lite Strips) blood-glucose meter (FreeStyle #1 ea 09/15/22 Unknown Rx Lite Meter kit) fluticasone propionate 50 1 - 2 spray intranasal BID PRN 04/27/23 01/30/24 Rx mcg/actuation nasal allergies, congestion #16 grams spray,suspension atorvastatin 40 mg tablet 40 mg PO QHS CHOLESTEROL #90 tabs 08/21/23 03/15/24 Rx trazodone 50 mg tablet 50 - 100 mg (1 - 2 x 50 mg) PO QHS 08/21/23 03/15/24 Rx sleep #90 tabs metformin 500 mg tablet 500 mg PO BID DIABETIC 1 month #60 12/12/23 03/16/24 Rx tabs baclofen 5 mg tablet 5 mg PO BID PAIN 01/16/24 03/16/24 History sennosides 8.6 mg-docusate sodium 2 tab PO BID PRN constipation 10 01/23/24 01/30/24 Rx 50 mg tablet (Stool days #40 tabs Softener-Stimulant Laxative) albuterol sulfate 90 mcg/actuation 1 - 2 puff inhalation Q4H PRN 01/31/24 Unknown History aerosol inhaler Wheezing duloxetine 30 mg capsule,delayed 30 mg PO DAILY ANXIETY #90 caps 02/05/24 03/16/24 Rx release doxycycline hyclate 100 mg capsule 100 mg PO BID osteomyelitis 02/22/24 03/16/24 History gabapentin 300 mg capsule 300 mg PO TID pain 02/27/24 03/16/24 History linaclotide 72 mcg capsule 72 mcg PO DAILY PRN irritable colon 02/27/24 Unknown History (Linzess) oxycodone-acetaminophen 7.5 mg-325 1 tab PO BID pain 03/16/24 03/16/24 History mg tablet tamsulosin 0.4 mg capsule 0.4 mg PO DAILY BPH 03/16/24 03/16/24 History Allergy/AdvReac Type Severity Reaction Status Date / Time adhesive tape Allergy Rash Verified 03/16/24 20:58 sertraline (From Zoloft) AdvReac Unknown Verified 03/16/24 20:58 Family History Brother Heart disease Myocardial infarction 60's CAD (coronary artery disease) Father Myocardial infarction 65 CAD (coronary artery disease) Mother HLD (hyperlipidemia) when son was 16 following MVA, healthy aside HLD. Surgical History Hx of laminectomy S/P laminectomy Status post discectomy for herniated nucleus pulposus History of lateral meniscus repair of right knee (~2021) Hx laparoscopic cholecystectomy (~11/2022) Hx of bilateral cataract extraction H/O cervical spine surgery (08/2020) History of herniorrhaphy History of carpal tunnel release History of back surgery History of left heart catheterization (09/09/11) H/O coronary artery bypass surgery (09/14/11) Social History household members: spouse Smoking Status: Current every day smoker tobacco type: smokeless tobacco Smokeless tobacco user: chewing tobacco alcohol intake: current alcohol intake frequency: a few times a month substance use type: does not use caffeine: Yes Type: coffee Number of servings: 2 Physical Exam Const alert, oriented x3 and no apparent distress General Appearance: cooperative HEENT normocephalic and head/scalp atraumatic Eyes PERRL and EOMs intact bilaterally Neck supple and No nodes Resp normal air movement and clear to auscultation bilaterally Cardio regular rate and regular rhythm GI soft to palpation, non-tender and non-distended Extremity General Extremity: Negative for edema Skin no rashes or lesions noted Skin Narrative: no lumbar tenderness Neuro CN's II-XII intact bilaterally Lab / Micro Data Attestation: I reviewed the patient's lab results. 03/19/24 03:00 03/19/24 03:00 Labs: Laboratory Results - last 24 hr 03/18/24 11:16: POC Glucose 112 H 03/18/24 16:47: POC Glucose 119 H 03/19/24 03:00: WBC 6.1, RBC 3.85 L, Hgb 11.1 L, Hct 31.7 L, MCV 82.3, MCH 28.8, MCHC 35.0 D, RDW Std Deviation 39.0, RDW Coeff of Frankie 12.9, Plt Count 230, MPV 8.0, Sodium 129 L, Potassium 3.3 L, Chloride 95 L, Carbon Dioxide 28.0, Anion Gap 6, BUN 13, Creatinine 0.78, Estim Creat Clear Calc 88.72, Est GFR (MDRD) Af Amer 126, Est GFR (MDRD) Non-Af 104, BUN/Creatinine Ratio 16.6, Glucose 116 H, Calcium 8.7, Vancomycin Trough 12.1 03/19/24 06:41: POC Glucose 163 H Micro: Microbiology 03/16/24 21:47 Blood Culture (Wb) - Right Hand Blood Culture - Preliminary No growth in 48 hours. Imaging Radiology Impression Lumbar Spine MRI 03/18/24 08:00 IMPRESSION: 1. Improving edema of the L4 and L5 vertebral bodies. No suspicious discitis or vertebral body osteomyelitis. 2. No abnormally enhancing lesions intradurally and extradurally. 3. Moderately pronounced stenosis of the right L4-L5 intervertebral neuroforamen and moderate stenosis of the left intervertebral neuroforamen are unchanged. 4. Pronounced L3-L4 degenerative disc space height narrowing, mild degenerative retrolisthesis of L3 on L4 and moderately pronounced stenosis of right intervertebral neuroforamen are unchanged. 5. Grade 1 degenerative retrolisthesis of L2 on L3 and mild stenosis of the bilateral intervertebral neuroforamina are unchanged. Electronically Signed: Hardy Khan MD at 11:14 EDT , Brain MRI 03/18/24 09:45 IMPRESSION: 1. No MRI evidence of acute or subacute ischemic infarct or any abnormally enhancing lesions intra-axially and extra-axially. 2. Chronic white matter ischemic changes in the right centrum semiovale. 3. No significant interval change when compared to 10/23/2023. Electronically Signed: Hardy Khan MD at 15:35 EDT ,
--- NOTE | 2024-03-19 10:55 | PN.HOSP_ITS ---
Reason for Visit Reason for Visit: Diagnoses Metabolic encephalopathy (03/17/24) Osteomyelitis of vertebra, lumbar region (03/17/24) Fever, unspecified (03/17/24) Subjective Subjective No acute events overnight. Saw patient at bedside this morning, and friend present. Patient appeared slightly improved from yesterday and drastically improved from admission. Was sitting up fairly comfortably in bed, conversing normally, in no acute distress. He was reporting moderate low back pain, similar to yesterday but had just been given a dose of IV Dilaudid with some relief. He otherwise denied any fevers or chills. No other acute concerns this morning. Objective Data Objective Data Vital Signs: Vital Signs Temp Pulse Resp BP Pulse Ox O2 Del Method 98.0 F 66 18 147/94 H 100 Room Air 03/19/24 08:15 03/19/24 08:15 03/19/24 08:15 03/19/24 08:15 03/19/24 08:15 03/19/24 08:39 Oxygen Delivery Method Room Air Weight: 73 kg Body Mass Index (BMI) 23.1 Intake & Output: Intake and Output for Last 24 Hours 03/17/24 03/18/24 03/19/24 23:59 23:59 23:59 Intake Total 3319.2 / 3319.2 3063.8 / 3213.8 966.1 / 966.1 Output Total 725 / 975 1050 / 1050 1200 / 1200 Balance 2594.2 / 2344.2 2013.8 / 2163.8 -233.9 / -233.9 Lab / Micro Data 03/19/24 03:00 03/19/24 03:00 Labs: Laboratory Results - last 24 hr 03/18/24 11:16: POC Glucose 112 H 03/18/24 16:47: POC Glucose 119 H 03/19/24 03:00: WBC 6.1, RBC 3.85 L, Hgb 11.1 L, Hct 31.7 L, MCV 82.3, MCH 28.8, MCHC 35.0 D, RDW Std Deviation 39.0, RDW Coeff of Frankie 12.9, Plt Count 230, MPV 8.0, Sodium 129 L, Potassium 3.3 L, Chloride 95 L, Carbon Dioxide 28.0, Anion Gap 6, BUN 13, Creatinine 0.78, Estim Creat Clear Calc 88.72, Est GFR (MDRD) Af Amer 126, Est GFR (MDRD) Non-Af 104, BUN/Creatinine Ratio 16.6, Glucose 116 H, Calcium 8.7, Vancomycin Trough 12.1 03/19/24 06:41: POC Glucose 163 H Micro: Microbiology 03/16/24 21:47 Blood Culture (Wb) - Right Hand Blood Culture - Preliminary No growth in 48 hours. 03/17/24 02:00 Nasal Secretion SARS-CoV-2 Antigen (Rapid) - Final Radiography Diagnostic Testing: Radiology Impression Lumbar Spine MRI 03/18/24 08:00 IMPRESSION: 1. Improving edema of the L4 and L5 vertebral bodies. No suspicious discitis or vertebral body osteomyelitis. 2. No abnormally enhancing lesions intradurally and extradurally. 3. Moderately pronounced stenosis of the right L4-L5 intervertebral neuroforamen and moderate stenosis of the left intervertebral neuroforamen are unchanged. 4. Pronounced L3-L4 degenerative disc space height narrowing, mild degenerative retrolisthesis of L3 on L4 and moderately pronounced stenosis of right intervertebral neuroforamen are unchanged. 5. Grade 1 degenerative retrolisthesis of L2 on L3 and mild stenosis of the bilateral intervertebral neuroforamina are unchanged. Electronically Signed: Hardy Khan MD at 11:14 EDT , Brain MRI 03/18/24 09:45 IMPRESSION: 1. No MRI evidence of acute or subacute ischemic infarct or any abnormally enhancing lesions intra-axially and extra-axially. 2. Chronic white matter ischemic changes in the right centrum semiovale. 3. No significant interval change when compared to 10/23/2023. Electronically Signed: Hardy Khan MD at 15:35 EDT , Physical Exam Const alert, oriented x3 and no apparent distress Constitutional Narrative: Elderly male, chronically ill and thin appearing, much improved from admission, alert and oriented x 3, sitting up fairly comfortably in bed, fatigued but alert and answering questions appropriately, in no acute distress. HEENT normocephalic, head/scalp atraumatic and nasal mucous membranes and turbinates normal Eyes PERRL, EOMs intact bilaterally and conjunctivae normal Neck full ROM Chest inspection of chest normal Resp normal respiratory effort, normal air movement, no use of accessory muscles and clear to auscultation bilaterally Cardio regular rate, regular rhythm, no murmurs and peripheral pulses 2+ throughout GI normal to inspection, nondistended, normoactive bowel sounds, soft to palpation, non-tender and non-distended Back/Spine normal ROM Back/Spine Narrative: Mild tenderness palpation in L-spine, no other abnormalities. Stable. Extremity normal to inspection and no pedal edema Neuro no focal motor deficits and no sensory deficits noted Speech: speech normal Psych affect normal Assessment & Plan Assessment/Plan (1) Acute metabolic encephalopathy: (2) Pyrexia: (3) Osteomyelitis of lumbar spine: PLAN: Plan Patient is a 68-year-old male who presented [facility] ED on 03/16/2024 with altered mental status. 1. Acute metabolic encephalopathy with pyrexia, improving ? Neurology and ID following. Patient encephalopathic on night of admission, was alert but only moaning in response to questions. Was empirically started on treatment for meningitis on 03/17 with IV vancomycin, ceftriaxone, ampicillin and acyclovir. Patient's mentation significantly improved on 03/18. MRI brain and L- spine with IV contrast on 03/18 with no acute findings. UA negative, chest x-ray benign, no abdominal symptoms since admission. Per ID, aseptic meningitis still a possibility and noted that patient did have a spine injection about a week ago. Antibiotics narrowed to acyclovir and ceftriaxone on 03/19. Per ID and neurology, no need for LP at this point but if patient worsens, would likely need LP at that time. Continue to monitor. Avoid deliriogenic medications as able. 2. Mild hyponatremia, stable ? Sodium 130 on admit, remaining stable ~129-132. Likely due to recent poor p.o. intake and possible infection as noted above. Monitor daily BMP. 3. Acute on chronic back pain with debility ? PT/OT/case management following. Home regimen of baclofen 5 mg twice daily, duloxetine 30 mg daily, gabapentin 300 mg 3 times daily, Percocet 1 tab twice daily, trazodone at night. Patient very encephalopathic on admission as noted above, unclear if he was having back pain. With improvement of status on 03/18, patient began to report significantly more low back pain. MRI L-spine above notably with no acute findings. Back pain stable on 03/19. Continue to treat with scheduled Tylenol, lidocaine patch and oxycodone as needed. Discontinued IV Dilaudid on 03/19; noted to patient and family that we cannot give this after discharge so it is best to limit this as much as possible. Patient has been resistant to SNF placement in the past, but discussed with patient and on 03/19 that given worsening debility and continued hospitalizations, would be reasonable to consider SNF placement after this discharge. Will continue to follow. Chronic medical conditions: ? Type 2 diabetes mellitus: Home regimen of metformin 500 mg twice daily. Holding home metformin, sliding scale insulin while inpatient. ? BPH with obstructive symptoms: Continue home Flomax. ? Hyperlipidemia: Continue home statin. DVT prophylaxis: Lovenox CODE STATUS: Full code, unverified Expected disposition: SNF versus home with [facility], 2-3 days Total clinical time spent by myself addressing the patient's medical issues, reviewing all the data, and collaborating with patient's care team: 35 minutes. Charges/Coding Visit Charges Inpatient E&M: 60982 Subs Hosp L2
[2024-03-19] MEDS: Ceftriaxone 2 GM in 0.9% Normal Saline (50mL MB+) 50 ML IV (11:00)
--- NOTE | 2024-03-19 13:18 | CHAPLAIN ---
Type of Pastoral Visit _x__ Initial Visit ___ Follow-up Visit ___ On-call Visit ___ General Patient Visit ___ Spiritual Assessment ___ Family Conference ___ Bereavement ___ Rapid Response ___ Code Blue ___ Other (describe below) Pastoral Care Referral From _x__ Patient ___ Family ___ Nurse ___ Physician ___ Conservator Artifacts ___ Computer Systems Technology Instructor ___ Other (describe below) Sacrament/Intervention _x__ Active listening ___ Anointing ___ Zoroastrianism ___ Bereavement ___ Communion _x__ Radha exploration ___ ___ Life review _x__ Prayer ___ Reconciliation ___ Sacrament of Sick ___ Supportive presence ___ Wedding ___ Other (describe below) Pastoral Comments patient gives updates on his health and lingering problems of infection; pt admits that he is discouraged about the slow progress seen and the many times he has had to miss caodaism which I love; listening and supportive presence given; pt is a believer and welcomes the prayers and 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
[2024-03-19 14:30] VITALS: BP 138/88; PULSE 64; RESP 17; TEMP 36.7; O2SAT 100
--- NOTE | 2024-03-19 15:17 | NEURO.PNOTE ---
Assessment and Plan: Neuro Assessment/Plan 68 M who had recurrent disc herniation, s/p repeat laminectomy L4-5 with discectomy and decompression of L5 nerve root in 07/2023, complicated by discitis and osteomyelitis in 10/2023 been on prolonged course of abx sincce, who is now again presenting with confusion in the setting of recent URI over the past week and intermitted fevers. He had mildly elevated temp of 38 upon presentation but otherwise his temp has been normal. He was started on Abx with DECISION SUPPORT ANALYST coverage on Saturday 03/17. His MRI L spine showed improvment in edema and no concern for worsening osteomyelitis/discitis. MRI brain with no acute findings The next day on 03/18 he is doing much better has improved alert oriented with some mild confusion but doing much better. Today 03/19 he continues to improve. Unlikely to be DECISION SUPPORT ANALYST infection give the dramatic improvement over one night, and should be ok to deescalate antibiotics and can cover systemically if needed per primary team. I suspect his encephalopathy is toxic metabolic in the setting of underlying infection. We will follow clinically to make sure he continues to improve. Differential includes seizures also, and will obtain routine EEG to evaluate. Diagnosis: Encephalopathy I personally attended this patient and spent a total time of 30 minutes evaluating this patient including clinical assessment, review of chart, medical history imaging, and determining appropriate treatment and workup. Subject: Neurology Subjective no acute events over night. He continues to improve. EEG Results Procedure Details EEG Procedure Details: JARET FIGUEROA is a 68 year old M with a past medical history of , who presents for evaluation of Electroencephalogram on DATE at TIME Objective Data Objective Data Vital Signs: Vital Signs Temp Pulse Resp BP Pulse Ox O2 Del Method 98.0 F 66 18 147/94 H 100 Room Air 03/19/24 08:15 03/19/24 08:15 03/19/24 08:15 03/19/24 08:15 03/19/24 08:15 03/19/24 08:39 Oxygen Delivery Method Room Air Weight: 73 kg Body Mass Index (BMI) 23.1 Intake & Output: Intake and Output for Last 24 Hours 03/17/24 03/18/24 03/19/24 23:59 23:59 23:59 Intake Total 3319.2 / 3319.2 3063.8 / 3213.8 966.1 / 966.1 Output Total 725 / 975 1050 / 1050 1200 / 1200 Balance 2594.2 / 2344.2 2013.8 / 2163.8 -233.9 / -233.9 Lab / Micro Data 03/19/24 03:00 03/19/24 03:00 Labs: Laboratory Results - last 24 hr 03/18/24 16:47: POC Glucose 119 H 03/19/24 03:00: WBC 6.1, RBC 3.85 L, Hgb 11.1 L, Hct 31.7 L, MCV 82.3, MCH 28.8, MCHC 35.0 D, RDW Std Deviation 39.0, RDW Coeff of Frankie 12.9, Plt Count 230, MPV 8.0, Sodium 129 L, Potassium 3.3 L, Chloride 95 L, Carbon Dioxide 28.0, Anion Gap 6, BUN 13, Creatinine 0.78, Estim Creat Clear Calc 88.72, Est GFR (MDRD) Af Amer 126, Est GFR (MDRD) Non-Af 104, BUN/Creatinine Ratio 16.6, Glucose 116 H, Calcium 8.7, Vancomycin Trough 12.1 03/19/24 06:41: POC Glucose 163 H Micro: Microbiology 03/16/24 21:47 Blood Culture (Wb) - Right Hand Blood Culture - Preliminary No growth in 48 hours. 03/17/24 02:00 Nasal Secretion SARS-CoV-2 Antigen (Rapid) - Final Radiography Diagnostic Testing: Radiology Impression Lumbar Spine MRI 03/18/24 08:00 IMPRESSION: 1. Improving edema of the L4 and L5 vertebral bodies. No suspicious discitis or vertebral body osteomyelitis. 2. No abnormally enhancing lesions intradurally and extradurally. 3. Moderately pronounced stenosis of the right L4-L5 intervertebral neuroforamen and moderate stenosis of the left intervertebral neuroforamen are unchanged. 4. Pronounced L3-L4 degenerative disc space height narrowing, mild degenerative retrolisthesis of L3 on L4 and moderately pronounced stenosis of right intervertebral neuroforamen are unchanged. 5. Grade 1 degenerative retrolisthesis of L2 on L3 and mild stenosis of the bilateral intervertebral neuroforamina are unchanged. Electronically Signed: Hardy Khan MD at 11:14 EDT , Brain MRI 03/18/24 09:45 IMPRESSION: 1. No MRI evidence of acute or subacute ischemic infarct or any abnormally enhancing lesions intra-axially and extra-axially. 2. Chronic white matter ischemic changes in the right centrum semiovale. 3. No significant interval change when compared to 10/23/2023. Electronically Signed: Hardy Khan MD at 15:35 EDT , Physical Exam Narrative Exam performed with help of the nurse/JOSE ARMANDO present with patient on Tele site NEURO: AO to self and place. 2023. Follows commands, no aphasia/dysarthria. PERRL, EOMI. no gaze preference/nystagmus. Face symmetric, Intact facial sensation. Tongue midline. Head turning intact. Sensation: intact to light touch all over Motor: All extremities antigravity
[2024-03-19 17:28] LABS: Bedside Glucose 140 mg/dL (74-106)
[2024-03-19] MEDS: Ondansetron 4 MG/2 ML Vial IV (21:22)
[2024-03-19] MEDS: Ibuprofen 600 MG Tablet PO (21:23)
[2024-03-19] MEDS: Atorvastatin Calcium 40 MG Tablet PO (21:24)
[2024-03-19 21:31] VITALS: BP 141/68; PULSE 63; RESP 16; TEMP 37.2; O2SAT 100
[2024-03-19 21:56] LABS: Bedside Glucose 138 mg/dL (74-106)
[2024-03-20 04:00] VITALS: BP 134/88; PULSE 64; RESP 16; TEMP 36.4; O2SAT 100
[2024-03-20] MEDS: oxyCODONE 5 MG Tablet PO ×4 (04:32→21:24)
[2024-03-20] MEDS: Ibuprofen 600 MG Tablet PO ×2 (04:33→16:11)
[2024-03-20] MEDS: Acetaminophen 500 MG Tablet 1000 MG PO ×3 (05:40→21:19)
[2024-03-20] MEDS: DEXTROSE 5% IV (06:04)
[2024-03-20] MEDS: WATER IV (06:04)
[2024-03-20] MEDS: ACYCLOVIR IV (06:04)
[2024-03-20 06:08] LABS: Anion Gap 6 (5-15); BUN 9 mg/dL (7-18); BUN/Creat Ratio 9.8 RATIO (10-20); Calcium,Total 8.9 mg/dL (8.5-10.1); Chloride 94 mmol/L (98-107); Creatinine, Serum 0.92 mg/dL (0.70-1.30); EST Glomerular Filtration Rate 86 mL/min (>60); Est Glom Filt Rate - Afr Amer 104 mL/min (>60); Estimated Creatinine Clearance 77.14 ml/min; Glucose 108 mg/dL (74-106); Sodium Level 129 mmol/L (136-145)
[2024-03-20 09:37] LABS: Phosphorus 3.1 mg/dL (2.5-4.9)
[2024-03-20 09:57] VITALS: BP 128/82; PULSE 65; RESP 18; TEMP 36.6; O2SAT 100
[2024-03-20] MEDS: Potassium Chloride Oral Tablet 20 MEQ 60 MEQ PO (10:00)
[2024-03-20] MEDS: Multivitamins,Therapeutic Tablet 1 TABLET PO (10:00)
[2024-03-20] MEDS: Ceftriaxone 2 GM in 0.9% Normal Saline (50mL MB+) 50 ML IV (10:00)
[2024-03-20] MEDS: Enoxaparin 40 MG/0.4 ML Syringe SC (10:01)
[2024-03-20] MEDS: Tamsulosin HCl 0.4 MG Capsule PO (10:01)
[2024-03-20] MEDS: Lidocaine 5% Patch 1 PATCH TOPICAL (10:01)
--- NOTE | 2024-03-20 12:32 | PCM.PN.HOSP ---
Reason for Visit Reason for Visit: Diagnoses Metabolic encephalopathy (03/17/24) Osteomyelitis of vertebra, lumbar region (03/17/24) Fever, unspecified (03/17/24) Subjective Subjective No acute events overnight. Saw patient at bedside this morning. Patient continued to appear improved today from previous days, was sitting up in bedside chair with good energy, conversing normally, in no acute distress. Patient had been up walking around the floor with assistance from nursing staff this morning without significant issue. Does continue to report some back pain but improved from previous days. He is hoping to go home soon. No other new concerns today. Objective Data Objective Data Vital Signs: Vital Signs Temp Pulse Resp BP Pulse Ox O2 Del Method 97.8 F 65 18 128/82 H 100 Room Air 03/20/24 09:57 03/20/24 09:57 03/20/24 09:57 03/20/24 09:57 03/20/24 09:57 03/20/24 09:57 Oxygen Delivery Method Room Air Weight: 73 kg Body Mass Index (BMI) 23.1 Intake & Output: Intake and Output for Last 24 Hours 03/18/24 03/19/24 03/20/24 23:59 23:59 23:59 Intake Total 3063.8 / 3213.8 1280.7 / 1680.7 1375.83 / 1375.83 Output Total 1050 / 1050 2100 / 3100 2300 / 2300 Balance 2013.8 / 2163.8 -819.3 / -1419.3 -924.17 / -924.17 Lab / Micro Data 03/19/24 03:00 03/20/24 04:40 Labs: Laboratory Results - last 24 hr 03/19/24 17:08: POC Glucose 140 H 03/19/24 21:38: POC Glucose 138 H 03/20/24 04:40: Sodium 129 L, Potassium 3.0 L, Chloride 94 L, Carbon Dioxide 29.0, Anion Gap 6, BUN 9, Creatinine 0.92, Estim Creat Clear Calc 77.14, Est GFR (MDRD) Af Amer 104, Est GFR (MDRD) Non-Af 86, BUN/Creatinine Ratio 9.8 L, Glucose 108 H, Calcium 8.9, Phosphorus 3.1 Micro: Microbiology 03/16/24 21:47 Blood Culture (Wb) - Right Hand Blood Culture - Preliminary No growth in 48 hours. 03/17/24 02:00 Nasal Secretion SARS-CoV-2 Antigen (Rapid) - Final Physical Exam Const alert, oriented x3 and no apparent distress Constitutional Narrative: Elderly male, chronically ill and thin appearing, much improved from admission, alert and oriented x 3, sitting up comfortably in bedside chair, energy much improved, in no acute distress. HEENT normocephalic, head/scalp atraumatic and nasal mucous membranes and turbinates normal Eyes PERRL, EOMs intact bilaterally and conjunctivae normal Neck full ROM Chest inspection of chest normal Resp normal respiratory effort, normal air movement, no use of accessory muscles and clear to auscultation bilaterally Cardio regular rate, regular rhythm, no murmurs and peripheral pulses 2+ throughout GI normal to inspection, nondistended, normoactive bowel sounds, soft to palpation, non-tender and non-distended Back/Spine normal ROM Back/Spine Narrative: Mild tenderness palpation in L-spine, no other abnormalities. Stable. Extremity normal to inspection and no pedal edema Neuro no focal motor deficits and no sensory deficits noted Speech: speech normal Psych affect normal Assessment & Plan Assessment/Plan (1) Acute metabolic encephalopathy: (2) Pyrexia: (3) Osteomyelitis of lumbar spine: PLAN: Plan Patient is a 68-year-old male who presented [facility] ED on 03/16/2024 with altered mental status. 1. Acute metabolic encephalopathy with pyrexia, improving ? Neurology and ID following. Patient encephalopathic on night of admission, was alert but only moaning in response to questions. Was empirically started on treatment for meningitis on 03/17 with IV vancomycin, ceftriaxone, ampicillin and acyclovir. Patient's mentation significantly improved on 03/18. MRI brain and L-spine with IV contrast on 03/18 with no acute findings. UA negative, chest x-ray benign, no abdominal symptoms since admission. Per ID, aseptic meningitis possible given patient did have a spine injection about a week ago but overall seems less likely. Narrowed back to chronic p.o. doxycycline on 03/20 and preparation for discharge. Per ID and neurology, no need for LP at this point. If patient remains stable, should be medically ready for discharge tomorrow. 2. Mild hyponatremia, stable ? Sodium 130 on admit, remaining stable ~129-132. Likely due to recent poor p.o. intake and possible infection as noted above. Monitor daily BMP. 3. Acute on chronic back pain with debility ? PT/OT/case management following. Home regimen of baclofen 5 mg twice daily, duloxetine 30 mg daily, gabapentin 300 mg 3 times daily, Percocet 1 tab twice daily, trazodone at night. Recurrent spinal infection ruled out on admission as noted above. Initially reported worsening low back pain on 03/18, improving and appears back to baseline on 03/20. Continue to treat with scheduled Tylenol, lidocaine patch and oxycodone as needed while here. Home duloxetine, gabapentin and trazodone at night restarted on 03/20. Would likely discharge back on Percocet but would consider holding baclofen on discharge. Patient initially with poor therapy scores but much improved during hospitalization, planning for home with home health care on discharge. Chronic medical conditions: ? Type 2 diabetes mellitus: Home regimen of metformin 500 mg twice daily. Holding home metformin, sliding scale insulin while inpatient. ? BPH with obstructive symptoms: Continue home Flomax. ? Hyperlipidemia: Continue home statin. DVT prophylaxis: Lovenox CODE STATUS: Full code, verified Expected disposition: Home with [facility], 1 to 2 days Total clinical time spent by myself addressing the patient's medical issues, reviewing all the data, and collaborating with patient's care team: 35 minutes. Charges/Coding Visit Charges Inpatient E&M: 93546 Subs Hosp L2
--- NOTE | 2024-03-20 13:02 | PCM.PN.ID ---
Physical Exam Narrative Feeling better, no fever, some low back pain Const alert and no apparent distress General Appearance: cooperative Resp normal air movement and clear to auscultation bilaterally Cardio regular rate and regular rhythm GI soft to palpation, non-tender and non-distended Skin no rashes or lesions noted ID ID: Route of nutrition/ use of supplements: [] Nutritional Intake: [] IV Site: [] Gan Catheter: [] Assessment & Plan Assessment/Plan (1) Acute metabolic encephalopathy: PLAN: Resolving. No further fever. Possible aseptic meningitis but overall low suspicion. Did have spine injection a week ago, and timing may fit with that being source. Will narrow abx back to his chronic suppressive po doxy. ID followup in 1 month. Will follow (2) Pyrexia: (3) Osteomyelitis of lumbar spine:
[2024-03-20 13:23] LABS: Bedside Glucose 127 mg/dL (74-106)
[2024-03-20 16:13] VITALS: BP 131/76; PULSE 72; RESP 20; TEMP 36.6; O2SAT 98
[2024-03-20 16:17] VITALS: PULSE 70
[2024-03-20 17:01] LABS: Bedside Glucose 110 mg/dL (74-106)
[2024-03-20 21:00] VITALS: BP 171/97; PULSE 72; RESP 16; TEMP 36.3; O2SAT 100
[2024-03-20] MEDS: Atorvastatin Calcium 40 MG Tablet PO (21:19)
[2024-03-20] MEDS: Doxycycline 100 MG CAPSULE PO (21:19)
[2024-03-20] MEDS: Gabapentin 100 MG Capsule 200 MG PO (21:24)
[2024-03-20] MEDS: traZODone 50 MG Tablet PO (21:24)
[2024-03-20 22:00] VITALS: RESP 16; O2SAT 100
--- NOTE | 2024-03-21 02:07 | PCM.HOSP.N ---
Hospitalist Note Patient with ongoing back spasms, discomfort. On reduced dose gabapentin and baclofen held. Will dose with x 1 tizandine low dose.
[2024-03-21 03:00] VITALS: BP 156/87; PULSE 88; RESP 16; TEMP 36.8; O2SAT 98
[2024-03-21] MEDS: tiZANidine HCl 2 MG Tablet PO (04:34)
[2024-03-21 05:59] LABS: Hematocrit 34.9 % (40-54); Mean Corp Hgb Conc 34.4 g/dL (32-36); Mean Corpuscular Hgb 28.7 pg (27.0-32.0); Mean Corpuscular Volume 83.5 fL (80-94); Platelet Count 297 K/mm3 (150-450); RBC Distribution Width CV 13.1 % (11.6-14.6); Red Blood Count 4.18 M/mm3 (4.6-6.2)
[2024-03-21] MEDS: Acetaminophen 500 MG Tablet 1000 MG PO (06:06)
[2024-03-21 06:25] LABS: Anion Gap 6 (5-15); BUN 12 mg/dL (7-18); Calcium,Total 9.1 mg/dL (8.5-10.1); Chloride 99 mmol/L (98-107); Creatinine, Serum 0.92 mg/dL (0.70-1.30); EST Glomerular Filtration Rate 86 mL/min (>60); Est Glom Filt Rate - Afr Amer 104 mL/min (>60); Estimated Creatinine Clearance 77.14 ml/min; Glucose 110 mg/dL (74-106); Potassium 3.6 mmol/L (3.5-5.1); Sodium Level 133 mmol/L (136-145)
[2024-03-21] MEDS: oxyCODONE 5 MG Tablet PO (07:03)
[2024-03-21 07:11] LABS: Bedside Glucose 114 mg/dL (74-106)
[2024-03-21 09:16] VITALS: BP 122/77; PULSE 99; RESP 16; TEMP 36.9; O2SAT 98
[2024-03-21] MEDS: Multivitamins,Therapeutic Tablet 1 TABLET PO (09:18)
[2024-03-21] MEDS: Enoxaparin 40 MG/0.4 ML Syringe SC (09:18)
[2024-03-21] MEDS: Gabapentin 100 MG Capsule 200 MG PO (09:18)
[2024-03-21] MEDS: Tamsulosin HCl 0.4 MG Capsule PO (09:18)
[2024-03-21] MEDS: Lidocaine 5% Patch 1 PATCH TOPICAL (09:19)
[2024-03-21] MEDS: Doxycycline 100 MG CAPSULE PO (09:19)
--- NOTE | 2024-03-21 09:55 | DCINST_ITS ---
Discharge Instructions Diet Discharge Diet: Low fat / Low cholesterol Activity Discharge Activity: Return to Normal Activity Dressing / Incision Call your doctor if you observe: Fever of 101 or Higher, Shortness of breath, Dizziness, Fainting spells, Swelling in the ankles, Chest pain and Increased palpitations (irregular heartbeat) Follow Up Care Test Results: Test results from this visit will be discussed in further detail at your follow- up appointment, if applicable. Discharge Plan Admission Admit Date/Time: 03/17/24 00:18 Attending Provider: Dimas Clinton Primary Care Provider: Marlen Bear Consulting Providers: Vin Wheatley; Claudy Tripathi; Meliton Coronel; Jessica Ang; Arabella Walter; Susie Augustin; Ben Velasco; Ivonne Holloway; Adelso Whitehead; Ham Giron; Ian Tellez; Emily Wilson; Monster Marina; Saida Cantu; Bull Sanchez; Cheryl Gandhi; Tray Cortes; Dae Das; Zach Cartagena; Melody Mar; Modesto Abarca; Tarik Wilkinson; Ina Elaine; Young Leigh; Jony Quezada; MAGDALENA WOODARD; Steve Fowler; Lily Moreno; Giuliano Pacheco Discharge Orders/Prescriptions Prescriptions: Continued multivitamin Tablet 1 tab PO DAILY (DME) handicap placard See Rx Instructions .Route .MEDSUPPLY Qty: 1 0RF Rx Instructions: fatique , pain in right knee , oteoarathritis gabapentin 300 mg capsule 300 mg PO TID Patient Comments: 300mg Daily 600mg HS Rx Instructions: 300mg in morning and 600mg at night metformin 500 mg tablet 500 mg PO BID 30 Days Qty: 60 2RF Rx Instructions: Start from 12/14/2023 Linzess 72 mcg capsule 72 mcg PO DAILY PRN (Reason: irritable colon) Patient Comments: PT HASNT USED IN APPROX 1 WEEK. baclofen 5 mg tablet 5 mg PO BID sennosides-docusate sodium [Stool Softener-Stimulant Laxat] 8.6-50 mg Tablet 2 tab PO BID PRN (Reason: constipation) 10 Days Qty: 40 0RF oxycodone-acetaminophen 7.5-325 mg tablet 1 tab PO BID Patient Comments: TAKE 1 TABLET BY MOUTH 2NTIMES A DAY tamsulosin 0.4 mg capsule 0.4 mg PO DAILY doxycycline hyclate 100 mg capsule 100 mg PO BID 30 Days Qty: 60 2RF albuterol sulfate 90 mcg/actuation HFA aerosol inhaler 1 - 2 puff INHALATION Q4H PRN (Reason: Wheezing) (DME) FreeStyle Lite Strips Strip See Rx Instructions .Route Qty: 100 3RF Rx Instructions: Twice daily (DME) blood-glucose meter [FreeStyle Lite Meter] Kit See Rx Instructions .Route Qty: 1 0RF Rx Instructions: Test twice daily fluticasone propionate 50 mcg/actuation spray,suspension 1 - 2 spray intranasal BID PRN (Reason: allergies, congestion) Qty: 16 3RF Rx Instructions: administer into each nostril; 2 sprays in each nostril for the first week atorvastatin 40 mg tablet 40 mg PO QHS Qty: 90 3RF trazodone 50 mg tablet 50 - 100 mg PO QHS Qty: 90 3RF duloxetine 30 mg capsule,delayed release(DR/EC) 30 mg PO DAILY Qty: 90 1RF Referrals / Follow Up: Marlen Bear MD [Primary Care Provider] - Within 1 Week Tarik Wilkinson MD [Med Staff - Active Staff] - Within 1 Month Disposition Disposition (needs filled in before D/C Order can be placed): Home, Self Care
--- NOTE | 2024-03-21 10:09 | PHA.DC.MR.R ---
Pharmacy [place] Med Reconciliation Pharmacy Service has performed discharge medication reconciliation for this patient. The patient's discharge medication list was reviewed for discrepancies and discrepancies were resolved. Medications at Discharge Home Medications multivitamin 1 tab PO DAILY supplement 07/09/19 handicap placard #1 ea 04/21/22 blood sugar diagnostic (FreeStyle Lite Strips) #100 ea 09/15/22 blood-glucose meter (FreeStyle Lite Meter kit) #1 ea 09/15/22 fluticasone propionate 50 mcg/actuation nasal spray,suspension 1 - 2 spray intranasal BID PRN allergies, congestion #16 grams 04/27/23 atorvastatin 40 mg tablet 40 mg PO QHS CHOLESTEROL #90 tabs 08/21/23 trazodone 50 mg tablet 50 - 100 mg (1 - 2 x 50 mg) PO QHS sleep #90 tabs 08/21/23 metformin 500 mg tablet 500 mg PO BID DIABETIC 1 month #60 tabs 12/12/23 baclofen 5 mg tablet 5 mg PO BID PAIN 01/16/24 sennosides 8.6 mg-docusate sodium 50 mg tablet (Stool Softener-Stimulant Laxative) 2 tab PO BID PRN constipation 10 days #40 tabs 01/23/24 albuterol sulfate 90 mcg/actuation aerosol inhaler 1 - 2 puff inhalation Q4H PRN Wheezing 01/31/24 duloxetine 30 mg capsule,delayed release 30 mg PO DAILY ANXIETY #90 caps 02/05/24 gabapentin 300 mg capsule 300 mg PO TID pain 02/27/24 linaclotide 72 mcg capsule (Linzess) 72 mcg PO DAILY PRN irritable colon 02/27/24 oxycodone-acetaminophen 7.5 mg-325 mg tablet 1 tab PO BID pain 03/16/24 tamsulosin 0.4 mg capsule 0.4 mg PO DAILY BPH 03/16/24 doxycycline hyclate 100 mg capsule 100 mg PO BID osteomyelitis 30 days #60 caps 03/20/24
--- NOTE | 2024-03-21 10:22 | CASEMGMT ---
Patient has order for discharge. RN CRISTIANE called and updated [facility] of discharge, resumption of care planned for Monday. RN CM in to discuss discharge with patient. RN CRISTIANE updated patient regarding resumption of care with [facility]. Patient denied further questions or needs at discharge. MATIAS SAUER updated discharge plan.
--- NOTE | 2024-03-21 11:49 | DS.PCM_ITS ---
Providers Date of Admission: 03/17/24 Primary Care Physician: Dr. Marlen Bear MD Consultations 03/17/24 16:35 Neurology [Consult: Tele-Neurology] Routine Consulting Provider: [facility] Reason for Consult: AMS, concern for meningitis EMERGENT Consult: No Notified: Yes Date Notified: 03/17/24 Time Notified: 17:16 Method of Notification: Answering Service Nursing Unit Staff Notify [facility] of Tele-Neurology Consult: Yes 03/18/24 13:16 Consult: Infectious Disease Routine Consulting Provider: Tarik Wilkinson Reason for Consult: concern for infxn w/ AMS of unclear source, h/o of lumbar OM on chronic abx EMERGENT Consult: No MD Notified: Yes Date Notified: 03/18/24 Time Notified: 13:16 Method of Notification: Text Reason For Visit: FEVER, ENCEPHALOPATHY Diagnosis Discharge Diagnosis (1) Acute metabolic encephalopathy: Status: Acute Code(s): G93.41 - Metabolic encephalopathy (2) Pyrexia: Status: Acute Code(s): R50.9 - Fever, unspecified (3) Osteomyelitis of lumbar spine: Status: Acute Code(s): M46.26 - Osteomyelitis of vertebra, lumbar region Medications at Discharge Home Medications multivitamin 1 tab PO DAILY supplement 07/09/19 handicap placard #1 ea 04/21/22 blood sugar diagnostic (FreeStyle Lite Strips) #100 ea 09/15/22 blood-glucose meter (FreeStyle Lite Meter kit) #1 ea 09/15/22 fluticasone propionate 50 mcg/actuation nasal spray,suspension 1 - 2 spray intranasal BID PRN allergies, congestion #16 grams 04/27/23 atorvastatin 40 mg tablet 40 mg PO QHS CHOLESTEROL #90 tabs 08/21/23 trazodone 50 mg tablet 50 - 100 mg (1 - 2 x 50 mg) PO QHS sleep #90 tabs 08/21/23 metformin 500 mg tablet 500 mg PO BID DIABETIC 1 month #60 tabs 12/12/23 baclofen 5 mg tablet 5 mg PO BID PAIN 01/16/24 sennosides 8.6 mg-docusate sodium 50 mg tablet (Stool Softener-Stimulant Laxative) 2 tab PO BID PRN constipation 10 days #40 tabs 01/23/24 albuterol sulfate 90 mcg/actuation aerosol inhaler 1 - 2 puff inhalation Q4H PRN Wheezing 01/31/24 duloxetine 30 mg capsule,delayed release 30 mg PO DAILY ANXIETY #90 caps 02/05/24 gabapentin 300 mg capsule 300 mg PO TID pain 02/27/24 linaclotide 72 mcg capsule (Linzess) 72 mcg PO DAILY PRN irritable colon 02/27/24 oxycodone-acetaminophen 7.5 mg-325 mg tablet 1 tab PO BID pain 03/16/24 tamsulosin 0.4 mg capsule 0.4 mg PO DAILY BPH 03/16/24 doxycycline hyclate 100 mg capsule 100 mg PO BID osteomyelitis 30 days #60 caps 03/20/24 Hospital Course Operations None Procedures Electroencephalogram Summary of Care Provided Minutes Spent on Discharge: 37 Hospital Course: Per HPI: JARET FIGUEROA, is a 68 M who presents with confusion. Is a 68-year-old male whose had a history of vertebral osteomyelitis, presents with confusion. Patient was going to some kind of car show drove self down but was not feeling well and then gradually got more confused. History is obtained through his as he is too confused to provide any history whatsoever. While he was in the emergency room, he started developing a temperature of around 38 Celsius. states that this was how he presented before when he had vertebral osteomyelitis. Patient underwent a lumbar spine CT that showed degenerative and postsurgical changes. Chest x-ray was unremarkable. Drug screen is positive for cannabinoids but the patient's states that she does not think that he has used it for few days but is not completely sure. But with his ongoing persistent confusion, fever the hospital service was contacted for admission. Hospital Course: 1. Acute metabolic encephalopathy with pyrexia, improving ? Neurology and ID following. Patient encephalopathic on night of admission, was alert but only moaning in response to questions. Was empirically started on treatment for meningitis on 03/17 with IV vancomycin, ceftriaxone, ampicillin and acyclovir. Patient's mentation significantly improved on 03/18. MRI brain and L- spine with IV contrast on 03/18 with no acute findings. UA negative, chest x-ray benign, no abdominal symptoms since admission. Per ID, aseptic meningitis possible given patient did have a spine injection about a week ago but overall seems less likely. Narrowed back to chronic p.o. doxycycline on 03/20 and preparation for discharge. Per ID and neurology, no need for LP at this point. If patient remains stable, should be medically ready for discharge tomorrow. 03/21/2024: Continues to show improvement in his mental status I do agree with the no need for LP at this time. Continue with p.o. Doxy 100 mg p.o. twice daily ordered by ID with outpatient follow-up in a month with ID. I do recommend that he follow-up with his PCP in 3 to 5 days. I discussed with him plan for discharge today he expressed understanding of the risk benefits of going home and would like to go the day. 2. Mild hyponatremia, stable ? Sodium 130 on admit, remaining stable ~129-132. Likely due to recent poor p.o. intake and possible infection as noted above. Monitor daily BMP. 3. Acute on chronic back pain with debility ? PT/OT/case management following. Home regimen of baclofen 5 mg twice daily, duloxetine 30 mg daily, gabapentin 300 mg 3 times daily, Percocet 1 tab twice daily, trazodone at night. Recurrent spinal infection ruled out on admission as noted above. Initially reported worsening low back pain on 03/18, improving and appears back to baseline on 03/20. Continue to treat with scheduled Tylenol, lidocaine patch and oxycodone as needed while here. Home duloxetine, gabapentin and trazodone at night restarted on 03/20. Would likely discharge back on Percocet but would consider holding baclofen on discharge. Patient initially with poor therapy scores but much improved during hospitalization, planning for home with home health care on discharge. 03/21/2024: He is on gabapentin 900 mg total daily and baclofen 10 mg total daily I do not think of these dosages are significant enough to be leading to significant encephalopathy by themselves therefore given his back spasms last night we will continue with these medications on discharge I do recommend closer outpatient follow-up with a low threshold to decrease dosing Chronic medical conditions: ? Type 2 diabetes mellitus: Home regimen of metformin 500 mg twice daily. Holding home metformin, sliding scale insulin while inpatient. ? BPH with obstructive symptoms: Continue home Flomax. ? Hyperlipidemia: Continue home statin. Physical Exam Narrative General: Alert, Oriented x3, Cooperative, No apparent distress HEENT: Atraumatic, PERRLA, EOMI, Normocephalic Oral: Moist Mucosa Neck: Supple, No JVD Lungs: Diminished, Normal air movement, No rhonchi, No wheeze, No rales Cardiovascular: Regular rate, Regular Rhythm, Normal S1, Normal S2, No murmurs Abdomen: Soft, Non Tender, Non-Distended, No Hepato-splenomegaly Extremities: No edema, Capillary Refill Less than 3 Seconds Skin: No rashes, No breakdown Musculoskeletal: Mild lumbar tenderness to palpation Neurological: No focal neurological deficits, Motor Exam 5/5 strength throughout, Sensory exam intact to light touch and pain Psych/Mental Status: Normal Affect, Appropriate Weight / BMI Weight Weight: 160 lb 14.999 oz Body Mass Index (BMI) 23.1 ABG / Lab / Microbiology Data 03/21/24 05:33 03/21/24 05:33 Laboratory: Laboratory Results - last 24 hr 03/20/24 12:50: POC Glucose 127 H 03/20/24 16:44: POC Glucose 110 H 03/21/24 05:33: WBC 6.0, RBC 4.18 L, Hgb 12.0 L, Hct 34.9 L, MCV 83.5, MCH 28.7, MCHC 34.4, RDW Std Deviation 40.0, RDW Coeff of Frankie 13.1, Plt Count 297, MPV 8.0, Sodium 133 L, Potassium 3.6, Chloride 99, Carbon Dioxide 28.0, Anion Gap 6, BUN 12, Creatinine 0.92, Estim Creat Clear Calc 77.14, Est GFR (MDRD) Af Amer 104, Est GFR (MDRD) Non-Af 86, BUN/Creatinine Ratio 13.0, Glucose 110 H, Calcium 9.1 03/21/24 06:39: POC Glucose 114 H Microbiology: Microbiology 03/16/24 21:47 Blood Culture (Wb) - Right Hand Blood Culture - Preliminary No growth in 48 hours. 03/17/24 02:00 Nasal Secretion SARS-CoV-2 Antigen (Rapid) - Final D/C Instructions Discharge Diet: Low fat / Low cholesterol Call your doctor if you observe: Fever of 101 or Higher, Shortness of breath, Dizziness, Fainting spells, Swelling in the ankles, Chest pain and Increased palpitations (irregular heartbeat) Meaningful Use Info Meaningful Use Meaningful Use Diagnoses (Choose all that apply): None applicable Ischemic Stroke Statin Dosing Therapy Reference: STATIN DOSE THERAPY REFERENCE: * Patients > 75 years receive moderate or high dose statin therapy. * Patients 75 years or YOUNGER should receive HIGH intensity statin dose unless contraindicated. You will be required to document reason for non-treatment if statin daily dose does not meet guidelines. HIGH DOSE STATIN THERAPY DAILY Atorvastatin > than or = to 40 mg Rosuvastatin > than or = to 20 mg Amlodipine + Atorvastatin > than or = to 2.5/40 mg Ezetimibe + Simvastatin 10/80 mg Simvastatin 80mg Discharge Plan Admission Admit Date/Time: 03/17/24 00:18 Attending Provider: Dimas Clinton Primary Care Provider: Marlen Bear Consulting Providers: Vin Wheatley; Claudy Tripathi; Meliton Coronel; Jessica Ang; Arabella Walter; Susie Augustin; Ben Velasco; vIonne Holloway; Adelso Whitehead; Ham Giron; Ian Tellez; Emily Wilson; Monster Marina; Saida Cantu; Bull Sanchez; Oksana,aliza Brannon; Tray Cortes; Dae Das; Zach Cartagena; Melody Mar; Modesto Abarca; Tarik Wilkinson; Ina Elaine; Young Leigh; Jony Quezada; MAGDALENA WOODARD; Steve Fowler; Lily Moreno; Giuliano Pacheco Discharge Orders/Prescriptions Prescriptions: Continued multivitamin Tablet 1 tab PO DAILY (DME) handicap placard See Rx Instructions .Route .MEDSUPPLY Qty: 1 0RF Rx Instructions: fatique , pain in right knee , oteoarathritis gabapentin 300 mg capsule 300 mg PO TID Patient Comments: 300mg Daily 600mg HS Rx Instructions: 300mg in morning and 600mg at night metformin 500 mg tablet 500 mg PO BID 30 Days Qty: 60 2RF Rx Instructions: Start from 12/14/2023 Linzess 72 mcg capsule 72 mcg PO DAILY PRN (Reason: irritable colon) Patient Comments: PT HASNT USED IN APPROX 1 WEEK. baclofen 5 mg tablet 5 mg PO BID sennosides-docusate sodium [Stool Softener-Stimulant Laxat] 8.6-50 mg Tablet 2 tab PO BID PRN (Reason: constipation) 10 Days Qty: 40 0RF oxycodone-acetaminophen 7.5-325 mg tablet 1 tab PO BID Patient Comments: TAKE 1 TABLET BY MOUTH 2NTIMES A DAY tamsulosin 0.4 mg capsule 0.4 mg PO DAILY doxycycline hyclate 100 mg capsule 100 mg PO BID 30 Days Qty: 60 2RF albuterol sulfate 90 mcg/actuation HFA aerosol inhaler 1 - 2 puff INHALATION Q4H PRN (Reason: Wheezing) (DME) FreeStyle Lite Strips Strip See Rx Instructions .Route Qty: 100 3RF Rx Instructions: Twice daily (DME) blood-glucose meter [FreeStyle Lite Meter] Kit See Rx Instructions .Route Qty: 1 0RF Rx Instructions: Test twice daily fluticasone propionate 50 mcg/actuation spray,suspension 1 - 2 spray intranasal BID PRN (Reason: allergies, congestion) Qty: 16 3RF Rx Instructions: administer into each nostril; 2 sprays in each nostril for the first week atorvastatin 40 mg tablet 40 mg PO QHS Qty: 90 3RF trazodone 50 mg tablet 50 - 100 mg PO QHS Qty: 90 3RF duloxetine 30 mg capsule,delayed release(DR/EC) 30 mg PO DAILY Qty: 90 1RF Referrals / Follow Up: Marlen Bear MD [Primary Care Provider] - 03/28/24 1:30 pm Tarik Wilkinson MD [Med Staff - Active Staff] - 04/24/24 2:15 pm ( will see you at the wound center on April 24. Your March 27 appointment has been cancelled.) Disposition Disposition (needs filled in before D/C Order can be placed): Home Health Service Charges/Coding Visit Charges Inpatient E&M: 97102 Disch Hosp >30min
== END 2024-03-21 10:47 | disposition home health service (06) | DRG 92 ==
LOC: ED 23:59 → PCU 03-17 01:03
PROVIDERS: Hospitalist; Emergency Provider Emergency Medicine; PCP Internal Medicine; Visit Provider Family Medicine
DX: G92.8 Other toxic encephalopathy (principal); M46.26 Osteomyelitis of vertebra, lumbar region; E87.1 Hypo-osmolality and hyponatremia; N13.8 Other obstructive and reflux uropathy; E11.9 Type 2 diabetes mellitus without complications; I10 Essential (primary) hypertension; I25.10 Atherosclerotic heart disease of native coronary artery without angina pectoris; F17.220 Nicotine dependence, chewing tobacco, uncomplicated; M79.7 Fibromyalgia; E78.00 Pure hypercholesterolemia, unspecified; M54.9 Dorsalgia, unspecified; R50.9 Fever, unspecified; Z79.84 Long term (current) use of oral hypoglycemic drugs; R53.81 Other malaise; G89.29 Other chronic pain; Z79.899 Other long term (current) drug therapy; Z90.49 Acquired absence of other specified parts of digestive tract; Z98.41 Cataract extraction status, right eye; Z98.42 Cataract extraction status, left eye; N40.1 Benign prostatic hyperplasia with lower urinary tract symptoms
CPT/HCPCS: 36415; 70450; 70553; 71045; 72131; 72158; 80048; 80053; 80202; 80307; 81001; 82077; 82140; 82803; 82962; 83605; 83735; 84100; 84145; 84443; 85025; 85027; 87040; 87811; 95819; 97110; 97116; 97162; 97165; 97535; 97802; 97803; 99285; A9575; J7030; J7040; J7050; P9612; A4216; J0696; J2405

== ENCOUNTER → 2024-03-29 | Outpatient (CLI) | payer MEDICARE, SELFPAY ==
[2024-03-29 15:16] LABS: Absolute Lymphocyte Count 1.14 X10^3/uL (0.83-4.51); Absolute Neutrophil Count 4.8 X10^3/uL (2.0-7.7); Basophil# 0.06 X10^3/uL; Basophil% 0.9 % (0-1); Eosinophil# 0.21 X10^3/uL; Eosinophils% 3.1 % (0-5); Hematocrit 35.4 % (40-54); Hemoglobin 11.2 g/dL (13.0-16.5); Lymphocyte # 1.14 X10^3/ul (0.83-4.51); Lymphocyte % 16.8 % (19-41); Mean Corp Hgb Conc 31.6 g/dL (32-36); Mean Corpuscular Hgb 28.6 pg (27.0-32.0); Mean Corpuscular Volume 90.5 fL (80-94); Mean Platelet Vol. 8.4 fl (6.2-12.0); Monocyte# 0.55 X10^3/uL; Monocyte% 8.1 % (0-10); NRBC Flagged by Analyzer 0 % (0-5); Platelet Count 324 K/mm3 (150-450); RBC Distribution Width CV 14.1 % (11.6-14.6); RBC Distribution Width SD 46.6 fl (35.1-43.9); Red Blood Count 3.91 M/mm3 (4.6-6.2); White Blood Count 6.8 K/mm3 (4.4-11.0)
[2024-03-29 15:44] LABS: Anion Gap 8 (5-15); BUN 23 mg/dL (7-18); BUN/Creat Ratio 21.7 RATIO (10-20); Calcium,Total 9.4 mg/dL (8.5-10.1); Chloride 107 mmol/L (98-107); Creatinine, Serum 1.06 mg/dL (0.70-1.30); EST Glomerular Filtration Rate 73 mL/min (>60); Est Glom Filt Rate - Afr Amer 89 mL/min (>60); Glucose 114 mg/dL (74-106); Magnesium 2.7 mg/dL (1.6-2.6); Potassium 4.7 mmol/L (3.5-5.1); Sodium Level 132 mmol/L (136-145)
== END | disposition home or self-care (01) ==
LOC: HHLAB 14:13
PROVIDERS: PCP Internal Medicine
DX: Z45.2 Encounter for adjustment and management of vascular access device (principal)
CPT/HCPCS: 80048; 83735; 85025

== ENCOUNTER → 2024-04-16 | Outpatient (CLI) | payer MEDICARE, SELFPAY ==
[2024-04-16 16:26] LABS: Anion Gap 5 (5-15); BUN 20 mg/dL (7-18); BUN/Creat Ratio 20.4 RATIO (10-20); Calcium,Total 9.9 mg/dL (8.5-10.1); Chloride 106 mmol/L (98-107); Creatinine, Serum 0.98 mg/dL (0.70-1.30); EST Glomerular Filtration Rate 80 mL/min (>60); Est Glom Filt Rate - Afr Amer 97 mL/min (>60); Glucose 100 mg/dL (74-106); Potassium 4.1 mmol/L (3.5-5.1); Sodium Level 138 mmol/L (136-145)
== END | disposition home or self-care (01) ==
PROVIDERS: PCP Internal Medicine; Visit Provider Internal Medicine
DX: E87.6 Hypokalemia (principal); E87.1 Hypo-osmolality and hyponatremia
CPT/HCPCS: 36415; 80048

== ENCOUNTER → 2024-04-24 | Outpatient (CLI) | payer MEDICARE, SELFPAY ==
[2024-04-24 14:25] LABS: Amphetamine Urine VISTA NEGATIVE (<1000 ng/mL); Barbiturate Urine VISTA NEGATIVE (< 200 ng/mL); Benzodiazepine Urine VISTA NEGATIVE (< 200 ng/mL); Cocaine Urine VISTA NEGATIVE (< 300 ng/mL); Ecstacy Urine VISTA POSITIVE (< 500 ng/mL); Methadone Urine VISTA NEGATIVE (< 300 ng/mL); PCP Urine VISTA NEGATIVE (< 25 ng/mL); THC Urine VISTA POSITIVE (< 50 ng/mL); Vista UDS pH Range 5
== END | disposition home or self-care (01) ==
PROVIDERS: PCP Internal Medicine; Referring Provider Anesthesiology Pain Medicine; Visit Provider Anesthesiology Pain Medicine
DX: F11.20 Opioid dependence, uncomplicated (principal)
CPT/HCPCS: 80307

== ENCOUNTER → 2024-04-29 | Outpatient (CLI) | payer MEDICARE, SELFPAY ==
[2024-04-29 16:25] LABS: Absolute Lymphocyte Count 1.57 X10^3/uL (0.83-4.51); Absolute Neutrophil Count 2.8 X10^3/uL (2.0-7.7); Basophil# 0.02 X10^3/uL; Basophil% 0.4 % (0-1); Eosinophil# 0.15 X10^3/uL; Eosinophils% 2.9 % (0-5); Hemoglobin 10.3 g/dL (13.0-16.5); Lymphocyte # 1.57 X10^3/ul (0.83-4.51); Lymphocyte % 30.7 % (19-41); Mean Corp Hgb Conc 32.2 g/dL (32-36); Mean Corpuscular Hgb 28.9 pg (27.0-32.0); Mean Corpuscular Volume 89.6 fL (80-94); Mean Platelet Vol. 8.5 fl (6.2-12.0); Monocyte# 0.58 X10^3/uL; Monocyte% 11.4 % (0-10); NRBC Flagged by Analyzer 0 % (0-5); Neutrophil # 2.78 X10^3/uL (2.7-7.7); Neutrophil % 54.4 % (47-70); Platelet Count 231 K/mm3 (150-450); RBC Distribution Width SD 45.9 fl (35.1-43.9); Red Blood Count 3.57 M/mm3 (4.6-6.2); White Blood Count 5.1 K/mm3 (4.4-11.0)
[2024-04-29 17:03] LABS: Erythrocyte Sedimentation Rate 2 mm/hr (0-20)
[2024-04-29 17:15] LABS: Uric Acid 5.3 mg/dL (3.5-7.2)
== END | disposition home or self-care (01) ==
PROVIDERS: PCP Internal Medicine; Referring Provider Internal Medicine; Visit Provider Internal Medicine
DX: M79.673 Pain in unspecified foot (principal); M10.9 Gout, unspecified
CPT/HCPCS: 36415; 84550; 85025; 85652

== ENCOUNTER → 2024-05-16 | Outpatient (CLI) | payer MEDICARE, SELFPAY ==
--- NOTE | 2024-05-16 14:48 | VDLE_ITS ---
Reason For Study: Left leg pain RIGHT LEFT CFV is compressible, spontaneous, phasic, GSV is normal. competent and demonstrates normal CFV is compressible, spontaneous, phasic, augmentation. competent, and demonstrates normal Procedure augmentation. This is a venous duplex using B-mode, color FV is compressible, spontaneous, phasic, flow and spectral Doppler. competent and demonstrates normal Exam performed in department. augmentation. A preliminary report was called and/or faxed POP V is compressible, spontaneous, phasic, to Dr. Bear. competent and demonstrates normal augmentation. T/P Trunk is compressible. PTV is compressible. LT PerV is compressible. VL/Venous Duplex US, Unilateral Interpretation Summary Deep veins of the left lower extremity are patent and compressible segmentally. There is no evidence of left lower extremity deep vein thrombosis. The left great saphenous vein donna ears patent and compressible segmentally. Ordering Physician: Marlen Bear Referring Physician: Marlen Bear M.D. Performed By: Rena Rodríguez RVT
== END | disposition home or self-care (01) ==
LOC: CVS 14:47
PROVIDERS: PCP Internal Medicine; Referring Provider Internal Medicine; Visit Provider Internal Medicine
DX: M79.89 Other specified soft tissue disorders (principal); M79.605 Pain in left leg
CPT/HCPCS: 93971

== ENCOUNTER → 2024-05-30 | Outpatient (CLI) | payer MEDICARE, SELFPAY ==
--- NOTE | 2024-05-30 12:55 | ART_ITS ---
Reason For Study: BLE Pain Procedure A bilateral lower extremity continuous wave Doppler with analog waveform analysis and ankle brachial indexes. Left Segmental Pressures Left brachial= 137mmHg. Left posterior tibial artery = 153mmHg. Left dorsalis pedis artery = 159mmHg. Left digit = 117 mmHg. The left posterior tibial artery waveforms are triphasic. The left dorsalis pedis waveforms are triphasic. Right Segmental Pressures Right brachial= 131mmHg. Right posterior tibial artery = 155mmHg. Right dorsalis pedis artery = 160mmHg. Right digit = 127 mmHg. The right posterior tibial artery waveforms are triphasic. The right dorsalis pedis waveforms are triphasic. Indices The right ankle brachial index by the posterior tibial artery is 1.13. The right ankle brachial index by the dorsalis pedis is 1.17. The right digital-brachial index is 0.93. The left ankle brachial index by the posterior tibial artery is 1.12. The left ankle brachial index by the dorsalis pedis is 1.16. The left digital-brachial index is 0.85. VL/Ankle Brachial Index Interpretation Summary Triphasic Doppler waveforms are noted at ankle level bilaterally. Pulse-volume recordings appear diminished at digital level on the right, but satisfactory at ankle level on th e right, as well as ankle and digital level on the left. Resting ankle-brachial indices are normal bilaterally. Digital- brachial indices are normal bilaterally. There is no evidence of significant arterial occlusive disease in the lower ext remities bilaterally. Ordering Physician: Marlen Yousif Referring Physician: MARLEN YOUSIF MD Performed By: Sourav Nicholas RVT
[2024-05-30 13:25] LABS: Erythrocyte Sedimentation Rate 2 mm/hr (0-20)
[2024-05-30 13:27] LABS: Absolute Lymphocyte Count 1.58 X10^3/uL (0.83-4.51); Absolute Neutrophil Count 3.1 X10^3/uL (2.0-7.7); Basophil# 0.03 X10^3/uL; Basophil% 0.5 % (0-1); Eosinophil# 0.22 X10^3/uL; Hematocrit 30.7 % (40-54); Lymphocyte # 1.58 X10^3/ul (0.83-4.51); Lymphocyte % 28.6 % (19-41); Mean Corp Hgb Conc 32.6 g/dL (32-36); Mean Corpuscular Hgb 29.6 pg (27.0-32.0); Mean Corpuscular Volume 90.8 fL (80-94); Mean Platelet Vol. 8.5 fl (6.2-12.0); Monocyte# 0.58 X10^3/uL; Monocyte% 10.5 % (0-10); NRBC Flagged by Analyzer 0 % (0-5); Neutrophil # 3.09 X10^3/uL (2.7-7.7); Platelet Count 226 K/mm3 (150-450); RBC Distribution Width SD 46.5 fl (35.1-43.9); Red Blood Count 3.38 M/mm3 (4.6-6.2); White Blood Count 5.5 K/mm3 (4.4-11.0)
[2024-05-30 14:00] LABS: CRP < 2.90 mg/L (0.0-3.0)
== END | disposition home or self-care (01) ==
LOC: CVS 12:38
PROVIDERS: Student in an Organized Health Care Education/Training Program; PCP Internal Medicine; Referring Provider Internal Medicine; Visit Provider Internal Medicine
DX: I73.9 Peripheral vascular disease, unspecified (principal); Z87.39 Personal history of other diseases of the musculoskeletal system and connective tissue
CPT/HCPCS: 36415; 85025; 85652; 86140; 93922

== ENCOUNTER → 2024-06-20 | Outpatient (CLI) | payer MEDICARE, SELFPAY ==
[2024-06-20 07:14] LABS: CREATININE FINGERSTICK < 1.0 mg/dL (0.70-1.30); EGFR FINGERSTICK > 60.0000 mL/min (>60)
== END | disposition home or self-care (01) ==
LOC: MRI 06:37
PROVIDERS: PCP Internal Medicine; Referring Provider Orthopaedic Surgery Orthopaedic Surgery of the Spine; Visit Provider Orthopaedic Surgery Orthopaedic Surgery of the Spine
DX: Z01.812 Encounter for preprocedural laboratory examination (principal)
CPT/HCPCS: 72158; 73590; 73610; A9575

== ENCOUNTER → 2024-07-19 | Outpatient (CLI) | payer MEDICARE, SELFPAY ==
[2024-07-19 12:08] LABS: Absolute Lymphocyte Count 1.41 X10^3/uL (0.83-4.51); Absolute Neutrophil Count 2.5 X10^3/uL (2.0-7.7); Basophil# 0.04 X10^3/uL; Basophil% 0.9 % (0-1); Eosinophil# 0.21 X10^3/uL; Eosinophils% 4.6 % (0-5); Hemoglobin 10.8 g/dL (13.0-16.5); Lymphocyte # 1.41 X10^3/ul (0.83-4.51); Lymphocyte % 30.6 % (19-41); Mean Corp Hgb Conc 30.9 g/dL (32-36); Mean Corpuscular Hgb 28.6 pg (27.0-32.0); Mean Corpuscular Volume 92.8 fL (80-94); Monocyte# 0.44 X10^3/uL; Monocyte% 9.5 % (0-10); NRBC Flagged by Analyzer 0 % (0-5); Neutrophil % 54.2 % (47-70); Platelet Count 222 K/mm3 (150-450); RBC Distribution Width SD 44.4 fl (35.1-43.9); Red Blood Count 3.77 M/mm3 (4.6-6.2); White Blood Count 4.6 K/mm3 (4.4-11.0)
[2024-07-19 12:22] LABS: D-Dimer Quantitative (DVT/PE) 0.72 FEU/ug/m (0.27-0.49)
[2024-07-19 12:45] LABS: ALB/GLOB Ratio 1.2 RATIO (0.9-2.4); AST(SGOT) 19 U/L (15-37); Alanine Aminotransfer ALT/SGPT 22 U/L (16-61); Albumin, Serum 3.5 g/dL (3.2-5.0); Alkaline Phosphatase 90 U/L (45-117); Anion Gap 5 (5-15); BUN 25 mg/dL (7-18); BUN/Creat Ratio 20.7 RATIO (10-20); Chloride 110 mmol/L (98-107); Creatinine, Serum 1.21 mg/dL (0.70-1.30); EST Glomerular Filtration Rate 63 mL/min (>60); Est Glom Filt Rate - Afr Amer 76 mL/min (>60); Glucose 93 mg/dL (74-106); Lipase 31 U/L (13-75); Potassium 3.9 mmol/L (3.5-5.1); Protein, Total 6.5 g/dL (6.4-8.2); Sodium Level 142 mmol/L (136-145)
== END | disposition home or self-care (01) ==
LOC: BIMLAB 08:39
PROVIDERS: PCP Internal Medicine; Referring Provider Internal Medicine; Visit Provider Internal Medicine
DX: R10.11 Right upper quadrant pain (principal)
CPT/HCPCS: 36415; 80053; 83690; 85025; 85379

== ENCOUNTER → 2024-07-23 | Outpatient (CLI) | payer MEDICARE, SELFPAY ==
--- NOTE | 2024-07-23 07:20 | CT_ITS ---
STUDY: CT ABDOMEN WITH CONTRAST REASON FOR EXAM: Male, 69 years old. Right upper abdominal pain RADIATION DOSAGE (If Supplied By Facility): CTDIvol = ( 8.87 ) mGy, DLP = ( 321.35 ) mGycm TECHNIQUE: Transaxial images were obtained post I.V. administration of Oral Readi-CAT, and oral contrast. Sagittal and coronal images were reconstructed. Individualized dose optimization techniques were used for this CT. COMPARISON: 09/12/2022 FINDINGS: The visualized lung bases are unremarkable. The visualized portions of the heart are within normal limits. Normal liver. There is non-visualization of the gallbladder, which may be secondary to either contraction or a prior cholecystectomy. Normal spleen. Normal pancreas. Normal bilateral adrenal glands. Normal right kidney. Normal left kidney. Normal visualized stomach. Normal small intestine. Normal colon. The appendix is visualized and appears normal. There is diffuse atherosclerotic calcification of the abdominal aorta, without a demonstrated aneurysm. Normal inferior vena cava. Normal retroperitoneum. Normal abdominal wall. Mild levoscoliosis of the lumbar spine with degenerative disc disease. Status post transpedicular fixation in the lower lumbar spine. CT/Abdomen WITH ORAL Cont Only IMPRESSION: Normal enhanced CT of the abdomen. Electronically Signed: Leroy Jerry MD at 9:37 EST ,
== END | disposition home or self-care (01) ==
LOC: CT 07:16
PROVIDERS: PCP Internal Medicine; Referring Provider Internal Medicine; Visit Provider Internal Medicine
DX: R10.11 Right upper quadrant pain (principal)
CPT/HCPCS: 74150

== ENCOUNTER → 2024-08-09 | Outpatient (CLI) | payer MEDICARE, SELFPAY ==
--- NOTE | 2024-08-09 06:44 | MRI_ITS ---
EXAM: MR LEFT LOWER EXTREMITY WITHOUT INTRAVENOUS CONTRAST, FOOT CLINICAL INDICATION: CHARCOT FOOT TECHNIQUE: Multiplanar and multisequence MR images of the left foot without intravenous contrast. COMPARISON: Ankle on MRI on the same date. FINDINGS: LIGAMENTS: No significant abnormality. TENDONS: No significant abnormality. MUSCLES: No significant abnormality. No edema or myositis. FLUID: Small ganglion or joint effusion associated with the talonavicular joint is partially visualized extending along the dorsal margin of the joint space measuring approximately 7 mm. BONES/JOINTS: First metatarsal phalangeal joint arthrosis. Mild diffuse midfoot arthrosis with dorsal midfoot spurring. Normal forefoot alignment. No fracture. No bone marrow edema. OTHER SOFT TISSUES: No significant abnormality. MRI/Lower Ext/No Jt/w/o IMPRESSION: 1. Small ganglion or joint effusion associated with the talonavicular joint is partially visualized extending along the dorsal margin of the joint space measuring approximately 7 mm. 2. Degenerative changes. No evidence of osteomyelitis or other acute pathology. Electronically Signed: Constantino Briscoe DO at 8:42 EST ,
--- NOTE | 2024-08-09 06:45 | MRI_ITS ---
STUDY: MRI LEFT ANKLE WITHOUT CONTRAST REASON FOR EXAM: Male, 69 years old. CHARCOT FOOT TECHNIQUE: Standardized fat and water weighted pulse sequences were obtained in all 3 orthogonal planes. COMPARISON: X-ray 06/20/2024 FINDINGS: Normal subcutis adipose space. Normal posterior tibialis tendon. Normal flexor digitorum longus tendon. Normal flexor hallucis longus tendon. Normal peroneus longus and brevis tendons. Normal tibialis anterior tendon. Normal extensor hallucis longus tendon. Normal extensor digitorum longus tendons. Normal Achilles tendon and teno-osseous insertion. Normal plantar fascia. Normal plantar calcaneal tubercles. Normal intrinsic muscles of the rearfoot. Normal distal tibiofibular syndesmotic ligamentous complex. Normal lateral ligamentous complex. Normal subtalar ligaments and sinus tarsi. Normal deltoid ligamentous complexes. Normal plantar calcaneonavicular (spring) ligament. There is a joint effusion of the tibiotalar articulation with capsular distension. 5 mm os trigonum. Normal talar dome. Normal subtalar articulations. Normal talonavicular articulation. Normal calcaneocuboid articulation. Normal navicular-cuneiform articulations. MRI/Lower Ext Joint Only (Routine) IMPRESSION: Normal MRI of the ankle and rearfoot. Electronically Signed: Leroy Jerry MD at 16:55 EST ,
== END | disposition home or self-care (01) ==
PROVIDERS: PCP Internal Medicine; Referring Provider Podiatrist; Visit Provider Podiatrist
DX: M14.672 Charcot's joint, left ankle and foot (principal)
CPT/HCPCS: 73718; 73721

== ENCOUNTER → 2024-09-19 | Outpatient (CLI) | payer MEDICARE, SELFPAY ==
--- NOTE | 2024-09-19 15:25 | RAD_ITS ---
PROCEDURE: THORACIC SPINE 3 VIEWS TECHNIQUE: 3 views of the thoracic spine. COMPARISON: None FINDINGS: Normal thoracic vertebral body heights. Mild multilevel disc space narrowing and endplate osteophytosis. Normal alignment. Paraspinal soft tissues are unremarkable. Mild anterior vertebral body osteophyte formation. Lower cervical spine anterior fusion hardware. RAD/Thoracic Spine 3 Views IMPRESSION: MILD DEGENERATIVE DISC DISEASE. No acute fracture or subluxation. Reading Location: [facility]
[2024-09-19 15:44] LABS: Absolute Lymphocyte Count 1.02 X10^3/uL (0.83-4.51); Absolute Neutrophil Count 5.6 X10^3/uL (2.0-7.7); Basophil# 0.04 X10^3/uL; Basophil% 0.6 % (0-1); Eosinophil# 0.02 X10^3/uL; Eosinophils% 0.3 % (0-5); Hematocrit 36.6 % (40-54); Hemoglobin 12.1 g/dL (13.0-16.5); Lymphocyte # 1.02 X10^3/ul (0.83-4.51); Lymphocyte % 14.7 % (19-41); Mean Corp Hgb Conc 33.1 g/dL (32-36); Mean Corpuscular Hgb 28.9 pg (27.0-32.0); Mean Corpuscular Volume 87.6 fL (80-94); Mean Platelet Vol. 8.5 fl (6.2-12.0); Monocyte# 0.24 X10^3/uL; Monocyte% 3.5 % (0-10); NRBC Flagged by Analyzer 0 % (0-5); Neutrophil # 5.57 X10^3/uL (2.7-7.7); Neutrophil % 80.3 % (47-70); Platelet Count 236 K/mm3 (150-450); RBC Distribution Width CV 13.2 % (11.6-14.6); RBC Distribution Width SD 41.9 fl (35.1-43.9); Red Blood Count 4.18 M/mm3 (4.6-6.2); White Blood Count 6.9 K/mm3 (4.4-11.0)
[2024-09-19 16:17] LABS: Procalcitonin 0.12 ng/mL (0.00-0.09); Vitamin D,25 Hydroxy 31.5 ng/mL
[2024-09-19 16:26] LABS: ALB/GLOB Ratio 1.1 RATIO (0.9-2.4); AST(SGOT) 17 U/L (15-37); Alanine Aminotransfer ALT/SGPT 24 U/L (16-61); Alkaline Phosphatase 77 U/L (45-117); Anion Gap 7 (5-15); BUN 25 mg/dL (7-18); BUN/Creat Ratio 18.4 RATIO (10-20); CRP < 2.90 mg/L (0.0-3.0); Calcium,Total 8.8 mg/dL (8.5-10.1); Chloride 100 mmol/L (98-107); Creatinine, Serum 1.36 mg/dL (0.70-1.30); EST Glomerular Filtration Rate 55 mL/min (>60); Est Glom Filt Rate - Afr Amer 66 mL/min (>60); Globulin 3.5 g/dL (2.2-4.2); Glucose 110 mg/dL (74-106); PSA,Total - Annual Screen 0.65 ng/mL (0.00-4.00); Protein, Total 7.5 g/dL (6.4-8.2); Sodium Level 133 mmol/L (136-145)
[2024-09-19 16:43] LABS: Hemoglobin A1c 4.4 % (3.8-5.6)
[2024-09-19 17:16] LABS: Erythrocyte Sedimentation Rate 4 mm/hr (0-20)
== END | disposition home or self-care (01) ==
LOC: LAB 15:06
PROVIDERS: PCP Internal Medicine; Referring Provider Internal Medicine; Visit Provider Internal Medicine
DX: Z12.5 Encounter for screening for malignant neoplasm of prostate (principal); E11.9 Type 2 diabetes mellitus without complications; E55.9 Vitamin D deficiency, unspecified; R50.9 Fever, unspecified; Z87.39 Personal history of other diseases of the musculoskeletal system and connective tissue; M54.6 Pain in thoracic spine
CPT/HCPCS: 36415; 72072; 80053; 82306; 83036; 83735; 84145; 84153; 84443; 85025; 85652; 86140; G0103

== ENCOUNTER → 2025-01-28 | Outpatient (CLI) | payer MEDICARE, SELFPAY ==
[2025-01-28 12:34] LABS: Absolute Lymphocyte Count 1.83 X10^3/uL (0.83-4.51); Absolute Neutrophil Count 2.9 X10^3/uL (2.0-7.7); Basophil# 0.04 X10^3/uL; Basophil% 0.7 % (0-1); Eosinophil# 0.22 X10^3/uL; Hematocrit 37.4 % (40-54); Hemoglobin 12.2 g/dL (13.0-16.5); Lymphocyte # 1.83 X10^3/ul (0.83-4.51); Lymphocyte % 33.2 % (19-41); Mean Corp Hgb Conc 32.6 g/dL (32-36); Mean Corpuscular Hgb 29.3 pg (27.0-32.0); Mean Corpuscular Volume 89.9 fL (80-94); Mean Platelet Vol. 8.9 fl (6.2-12.0); Monocyte# 0.51 X10^3/uL; Monocyte% 9.2 % (0-10); NRBC Flagged by Analyzer 0 % (0-5); Neutrophil % 52.5 % (47-70); Platelet Count 243 K/mm3 (150-450); RBC Distribution Width CV 13.2 % (11.6-14.6); RBC Distribution Width SD 43.4 fl (35.1-43.9); Red Blood Count 4.16 M/mm3 (4.6-6.2); White Blood Count 5.5 K/mm3 (4.4-11.0)
[2025-01-28 13:15] LABS: Hemoglobin A1c 5.7 % (<=5.6)
[2025-01-28 13:21] LABS: Anion Gap 10 (5-15); BUN 26 mg/dL (4-19); BUN/Creat Ratio 18.9 RATIO (10-20); Calcium,Total 9.3 mg/dL (7.6-11.0); Carbon Dioxide 24.6 mmol/L (21.0-32.0); Chloride 104 mmol/L (98-108); Cholesterol 245 mg/dL (<=200); Creatinine, Serum 1.36 mg/dL (0.70-1.20); EST Glomerular Filtration Rate 56 (>60); Glucose 101 mg/dL (70-99); High Density Lipoprotein 54 mg/dL; Low Density Lipoprotein Calc. 175 mg/dL; Potassium 4.3 mmol/L (3.3-5.1); Sodium Level 139 mmol/L (133-145); Triglycerides 81 mg/dL; Very Low Density Lipoprotein 16 mg/dL (5-40); cholesterol:hdl ratio screen 4.51
== END | disposition home or self-care (01) ==
LOC: BIMLAB 08:02
PROVIDERS: PCP Internal Medicine; Visit Provider Internal Medicine
DX: Z13.220 Encounter for screening for lipoid disorders (principal); E11.9 Type 2 diabetes mellitus without complications; I10 Essential (primary) hypertension; E78.5 Hyperlipidemia, unspecified; R55 Syncope and collapse
CPT/HCPCS: 36415; 80048; 80061; 83036; 84443; 85025

== ENCOUNTER → 2025-03-05 | Outpatient (CLI) | payer MEDICARE, SELFPAY ==
--- NOTE | 2025-03-05 09:36 | MRI_ITS ---
PROCEDURE: SPINE CERVICAL (ROUTINE) 03/05/2025 REASON FOR EXAM: CERVICAL RADICULOPATHY TECHNIQUE: SPINE CERVICAL (ROUTINE) Multiplanar and multisequence images were obtained without IV contrast administration. COMPARISON: Cervical spine x-ray September 10 2024. FINDINGS: Vertebrae: Cervical vertebral body heights are preserved. Bone marrow signal is unremarkable. Alignment: Normal. No spondylolisthesis. Spinal Cord: Cervical spinal cord is of normal size and signal intensities. Structures at the foramen magnum are unremarkable. C2-3: Facet joint arthropathy. No foraminal or canal stenosis. C3-4: Disc osteophyte complex measures 2 mm. No significant foraminal or canal stenosis. C4-5: Disc osteophyte complex. Facet joint arthropathy. No foramina stenosis. Mild canal stenosis. C5-6: Disc osteophyte complex. Uncovertebral hypertrophy. Facet joint arthropathy. Severe left foraminal stenosis. Mild canal stenosis. C6-7: Status post ACDF. Facet joint arthropathy. Severe left and mild right foramina stenosis. Mild canal stenosis. C7-T1: No significant foraminal or canal stenosis. MRI/Spine Cervical (Routine) IMPRESSION: Status post ACDF C6-C7 without significant foraminal or canal stenosis. Reading Location: [id number]
--- NOTE | 2025-03-05 09:38 | MRI_ITS ---
PROCEDURE: SPINE LUMBAR W/WO CONTRAST 03/05/2025 REASON FOR EXAM: OSTEOMYELITIS OF LUMBAR SPINE TECHNIQUE: SPINE LUMBAR W/WO CONTRAST Multiplanar and multisequence images were obtained without and with intravenous gadolinium-based contrast administration. CONTRAST: Analia scan VOLUME: 17 mL COMPARISON: 1723 FINDINGS: Posterior lumbar interbody fusion at L4-5 with retrolisthesis of L3 upon L4. No current findings that would suggest discitis or osteomyelitis on T1 or inversion recovery images. Modic changes are seen at L2- 3. The conus is normal. On axial images, there is no paravertebral fluid collection. At L1-2, there is minimal inferior foraminal narrowing on the left, unchanged. At L2-3, postsurgical changes dorsally without recurrent central spinal stenosis. Moderate narrowing of the right L2 neural foramen is similar to the prior examination. At L3-4, disc space narrowing and concentric bulge with a mild degree of right lateral recess stenosis. Posterior decompression. Both findings present previously. Moderate to severe right L3 foraminal narrowing was also present on the prior study. Correlate for right L3 radiculopathy. Interbody fusion at L4-5 without recurrent central stenosis. Moderate right L4 foraminal narrowing is similar to the prior study. At L5-S1, there is moderate facet degeneration. There is no foraminal nerve root impingement. On postcontrast images, there is no abnormal lumbosacral nerve root enhancement. There are no enhancing fluid collections. MRI/Spine Lumbar W/WO Contrast IMPRESSION: Overall similar findings to the prior study [facility]
== END | disposition home or self-care (01) ==
LOC: OPMRI 09:31
PROVIDERS: PCP Internal Medicine; Referring Provider Internal Medicine Infectious Disease; Visit Provider Internal Medicine Infectious Disease
DX: M46.26 Osteomyelitis of vertebra, lumbar region (principal)
CPT/HCPCS: 72141; 72158; A9575

== ENCOUNTER → 2025-03-06 | Outpatient (CLI) | payer MEDICARE, SELFPAY ==
[2025-03-06 14:13] LABS: Barbiturate Urine NEGATIVE (< 200 ng/mL); Benzodiazepine Urine NEGATIVE (< 200 ng/mL); PCP Urine NEGATIVE (< 25 ng/mL); THC Urine PRESUMPTIVE POSITIVE (< 50 ng/mL)
== END | disposition home or self-care (01) ==
LOC: LAB 12:14
PROVIDERS: PCP Internal Medicine; Referring Provider Anesthesiology Pain Medicine; Visit Provider Anesthesiology Pain Medicine
DX: F11.20 Opioid dependence, uncomplicated (principal)
CPT/HCPCS: 80307

== ENCOUNTER → 2025-03-21 | Outpatient (CLI) | payer MEDICARE, SELFPAY ==
--- NOTE | 2025-03-21 06:10 | ECHOD_ITS ---
Reason For Study Reason For Study: Aortic Stenosis Procedure This was a 2D Doppler, Color Flow transthoracic echocardiogram. Exam performed in department. Left Ventricle Normal LV size. The left ventricular ejection fraction is 60 %. Stage 1 diastolic dysfunction. No regional wall motion abnormalities noted. Right Ventricle Normal RV size. Normal systolic function. Atria Normal left atrium. Normal right atrium. Mitral Valve Normal mitral valve. Mild (1+) eccentric mitral valve insufficiency. Tricuspid Valve Normal tricuspid valve. Mild (1+) tricuspid valve insufficiency. Pulmonary artery systolic pressure is 30 mmHg. Aortic Valve Trisinus/trileaflet aortic valve. Moderate focal aortic valve calcification. Peak aortic valve gradient 50 mmHg. Mean aortic valve gradient 30 mmHg. Moderate aortic stenosis. Mild (1+) eccentric aortic valve insufficiency. Great Vessels Normal aortic root. The pulmonary artery is normal size. Inferior vena cava collapse with respiration. Pericardium/Pleural No pericardial effusion. MMode/2D Measurements & Calculations LVIDd: 5.3 cm IVSd: 1.3 cm LVOT diam: 2.0 cm LVIDs: 3.5 cm LVPWd: 1.0 cm LVOT area: 3.3 cm2 RVDd: 4.1 cm FS: 32.6 % Ao root diam: 3.8 cm LAV(MOD-bp): 57.7 ml LVAd ap4: 32.0 cm2 LAV(MOD-bp) Indexed: 28.2 ml/m2 LVLd ap4: 8.3 cm LAV(MOD-sp2): 57.7 ml EDV(MOD-sp4): 100.3 ml LAV(MOD-sp4): 58.1 ml EDV(sp4-el): 105.4 ml LVAs ap4: 19.6 cm2 LVLs ap4: 7.5 cm ESV(MOD-sp4): 43.2 ml ESV(sp4-el): 43.5 ml EF(MOD-sp4): 57.0 % EF(sp4-el): 58.7 % SV(MOD-sp4): 57.2 ml SV(MOD-sp2): 41.8 ml LVAd ap2: 29.1 cm2 LVLd ap2: 8.8 cm SI(MOD-sp4): 27.9 ml/m2 SI(MOD-sp2): 20.4 ml/m2 EDV(MOD-sp2): 81.5 ml EDV(sp2-el): 81.7 ml LVAs ap2: 18.7 cm2 LVLs ap2: 7.7 cm ESV(MOD-sp2): 39.7 ml ESV(sp2-el): 38.5 ml EF(MOD-sp2): 51.3 % SV(sp4-el): 61.9 ml LA A4 area: 20.7 cm2 LA dimension(2D): 3.9 cm TAPSE: 1.9 cm RA A4 area: 22.4 cm2 Doppler Measurements & Calculations MV E max leodan: 75.3 cm/sec Lat Peak E' Leodan: 10.0 cm/sec Med Peak E' Leodan: 7.3 cm/sec MV A max leodan: 94.7 cm/sec E/E' lat: 7.5 E/E' med: 10.4 MV E/A: 0.80 Ao V2 max: 354.0 cm/sec LV V1 max: 106.0 cm/sec SV(LVOT): 96.5 ml Ao max P.2 mmHg LV V1 max P.5 mmHg Ao V2 mean: 261.9 cm/sec LV V1 mean P.6 mmHg Ao mean P.0 mmHg LV V1 mean: 76.6 cm/sec Ao V2 VTI: 95.4 cm LV V1 VTI: 29.2 cm AV (velocity ratio): 0.31 PHUC(I,D): 1.0 cm2 PHUC(V,D): 0.99 cm2 PA V2 max: 91.2 cm/sec TR max leodan: 262.0 cm/sec TR max P.5 mmHg ECHO/Echo Complete Interpretation Summary Normal LV size. The left ventricular ejection fraction is 60 %. Stage 1 diastolic dysfunction. Moderate focal aortic valve calcification. Mean aortic valve gradient 30 mmHg. Mild (1+) eccentric mitral valve insufficiency. Pulmonary artery systolic pressure is 30 mmHg. Moderate aortic stenosis. Compared to the previous the aortic valve stenosis is worse. Ordering Physician: Rosa Maria Cuevas Referring Physician: Marlen Bear Performed By: Archana Enriquez RDCS
--- OUTSIDE RECORDS SUMMARY | 2025-03-21 06:14 | XMS RPT_ITS | CCD ---
Author Organization [facility] Care Team Providers Care Composition Siding Worker Name Role Phone LOPEZ COHEN Unavailable Unavailable LOPEZ COHEN Unavailable Unavailable Jose Luis Lopez Unavailable Unavailable LOPEZ COHEN E Unavailable Unavailable LOEPZ COHEN E Unavailable Unavailable Dr. Weston Gutierrez Chi Primary Care Provider Dr. Weston Gutierrez Chi Referring Provider 1([facility])[phone] Roof ELEVATOR SERVICE MECHANIC, ELEVATOR SERVICE MECHANIC-C aNrciso Lovelace Attending Provider 1([facility])[phone] Dr. Marshall Bear Attending Provider 1([facility]) MD Marshall Bear Primary Care Provider Unavail MD Marshall Yañez Referring Provider UnavailDr. Talat Villalta Attending Provider 1([facility]) Dr. Jon Cast Attending Provider 1([facility]) 00 Dr. Talat Lund Referring Provider 1([facility]) Dr. Talat Lund Other Provider 1([facility])-[phone] TAE Colon Attending Provider 1([facility])[phone] TAE Doran Attending Provider Unavailab Dr. Marshall Gallegos Attending Provider [phone] MD Marshall Bear Primary Care Provider Unavail able Dr. Talat Lund Attending Provider 1([facility]) Dr. Talat Lund Referring Provider 1([facility]) Dr. Talat Lund Other Provider 1([facility])-[phone] MD Marshall Bear Referring Provider Unavailabl TAE Minor Attending Provider 1([facility])[phone] TAE Doran Attending Provider Unavailab Dr. Jon Cortés Attending Provider 1([facility])-[phone] Marshall Bear Attending Provider [phone] Unavailable Primary Care Provider UnavailMD Marshall Soliz Primary Care Provider Unavail able MD Chema Marshall Referring Provider Unavaillinda e Dr. Talat Lund Attending Provider [phone] TAE Dubon Attending Provider [phone] TAE Doran Attending Provider Unavailab Dr. Marshall Gallegos Attending Provider [phone] Marshall Bear MD Primary Care Provider [phone] [phone] MD Marshall Redd Primary Care Provider Scarlet vailaMD Marshall Verde Referring Provider UnavaTAE Hernandez Attending Provider [phone] TAE Doran Attending Provider Unavailab Dr. Marshall Gallegos Attending Provider [phone]) Dr. Talat Lund Attending Provider [phone] JOSE JUAN PENA Attending Unavailable JOSE JUAN PENA Admitting Unavailable MD Marshall Redd Referring Provider UnaTAE Gonzalez Attending Provider Dr. Marshall Bear Primary Care Provider Dr. Marshall Bear Referring Provider TAE Colon Attending Provider Dr. Jon Cast Attending Provider [phone] Ventura Godoy Attending Provider [phone] Dr. Marshall Bear Primary Care Provider Dr. Marshall Bear Referring Provider Dr. Marshall Bear Attending Provider Dr. Marshall Bear Primary Care Provider Dr. Jon Cast Attending Provider [phone] TAE Cooln Attending Provider [phone] Marshall Bear Primary Care Provider Dr. Marshall Bear Referring Provider Dr. Ventura Godoy Attending Provider Dr. Marshall Bear Attending Provider Dr. Jon Cast Attending Provider TAE Colon Attending Provider Dr. Ventura Godoy Referring Provider Dr. Ventura Godoy Other Provider Walt, Dr. Whitehead Admit Provider Dr. Dimas Clinton Attending Provider Dr. Dimas [place] Other Provider Dr. Vipul Vazquez Other Provider Dr. Vipul Vazquez Attending Provider Dr. Marshall Bear Primary Care Provider Dr. Marshall Bear Referring Provider Dr. Ventura Godoy Attending Provider Dr. Marshall Bear Primary Care Provider Dr. Marshall Bear Referring Provider Dr. Ventura Godoy Attending Provider Marshall Bear MD Primary Care Provider MARSHALL BEAR Primary Care Unavailable Edilia Hunter Attending Unavailable MARSHALL BEAR Primary Care Unavailable JOS EJUAN PENA Attending Unavailable Edilia Hunter Attending Unavailable JOSE JUAN PENA Referring Unavailable Dr. Marshall Bear Primary Care Provider Dr. Marshall Bear Referring Provider Dr. Ventura Godoy Attending Provider Dr. Ventura Godoy Referring Provider Dr. Ventura Godoy Other Provider Dr. Ventura Godoy Admit Provider Dr. Dimas [place] Attending Provider Dr. Dimas [place] Other Provider Dr. Vipul Vazquez Other Provider Dr. Vipul Vazquez Attending Provider Dr. Marshall Bear Attending Provider Dr. Jon Cast Attending Provider TAE Lewis Attending Provider Dr. Vin Neff Attending Provider Dr. Marshall Bear Primary Care Provider Dr. Marshall Bear Referring Provider Walt, Dr. Whitehead Attending Provider Godoy, Dr. Whitehead Referring Provider Godoy, Dr. Whitehead Other Provider Godoy, Dr. Whitehead Admit Provider Dr. Dimas [place] Attending Provider Dr. Dimas [place] Other Provider Dr. Vipul Vazquez Other Provider Dr. Vipul Vazquez Attending Provider Dr. Marshall Bear Attending Provider Dr. oJn Cast Attending Provider TAE Lewis Attending Provider Dr. Vin Neff Attending Provider Dr. Kayli Granados Emergency Provider Dr. aSra Reaves Admit Provider Dr. Sara Reaves Attending Provider Dr. Sara Reaves Other Provider MD Claudy Tripathi Other Provider Unavailable Dr. Meliton Coronel Other Provider MD Jessica Ang Other Provider Unavailable Dr. Arabella Walter Other Provider Dr. Susie Augustin Other Provider Dr. Ben Velasco Other Provider Dr. Ivonne Holloway Other Provider Dr. Adelso Whitehead Other Provider Dr. Ham Giron Other Provider MD Emily Wilson Other Provider Dr. Monster Marina Other Provider Dr. Saida Cantu Other Provider Dr. Bull Sanchez Other Provider Dr. Cheryl Gandhi Other Provider Dr. Tray Cortes Other Provider Dr. Dae Das Other Provider Dr. Zach Cartagena Other Provider Dr. Melody Mar Other Provider Unavailable MD Modesto Abarca Other Provider Unavailable Dr. Ochoa Figueroa Attending Provider Dr. Ochoa Figueroa Other Provider Dr. Tarik Wilkinson Other Provider Dr. Jaspreet Armstrong Other Provider Unavaila Dr. Bjorn Varghese Attending Provider Dr. Vin Wheatley Attending Provider Dr. Vin Wheatley Other Provider Dr. Ochoa Figueroa Attending Provider Dr. Sara Reaves Referring Provider Dr. Vin Edmond Emergency Provider MARIIA Ponce Attending Provider Dr. Marshall Bear Primary Care Provider Dr. Ventura Godoy Attending Provider Dr. Marshall Bear Referring Provider Dr. Marshall Bear Primary Care Provider Dr. Marshall Bear Referring Provider Dr. Ventura Godoy Attending Provider Dr. Ventura Godoy Other Provider Dr. Prince Baltazar Emergency Provider Junior, Dr. Nobles Admit Provider [phone] Dr. Giuliano Pacheco Other Provider [phone] Chema RUIZ, Dr. Gee Primary Care Provider Lynnette RUIZ, Dr. Gilliland Attending Provider María ANDERSON, Dr. Kim Referring Provider Chema RUIZ, Dr. Gee Attending Provider Chema RUIZ, Dr. Gee Referring Provider 500.2500 ####[facility] [address] [place], [address] Bedside Glucoseon 03-21-2024 FINGERSTICK GLU 114 mg/dL High 74-106 [facility] Comment on above: Result Comment: YASSINE TAVARES OF PATIENT CARE PER NURSING PROTOCOL Performed By: #### L 501.080 ####[facility] [address] [place], [address] CBC-Complete Blood Cnt No Di ffon 03-21-2024 Erythrocyte distribution width (RBC) [Ratio] 13.1 % Normal 11.6-14.6 [facility] Comment on above: Performed By: #### L 100.0500 ####[facility] [address] [place], [address] Hematocrit (Bld) [Volume fraction] 34.9 % Low 40-54 [facility] Comment on above: Performed By: #### L 100.0500 ####[facility] [address] [place], [address] Hemoglobin (Bld) [Mass/Vol] 12.0 g/dL Low 13.0-16.5 [facility] Comment on above: Performed By: #### L 100.0500 ####[facility] [address] [place], [address] MCH (RBC) [Entitic mass] 28.7 pg Normal 27.0-32.0 [facility] Comment on above: Performed By: #### L 100.0500 ####[facility] [address] [place], [address] MCHC (RBC) [Mass/Vol] 34.4 g/dL Normal 32-36 [facility] Comment on above: Performed By: #### L 100.0500 ####[facility] [address] [place], [address] MCV (RBC) [Entitic vol] 83.5 fL Normal 80-94 [facility] Comment on above: Performed By: #### L 100.0500 ####[facility] [address] [place], [address] Platelet mean volume (Bld) [Entitic vol] 8.0 fL Normal 6.2-12.0 [facility] Comment on above: Performed By: #### L 100.0500 ####[facility] [address] [place], [address] Platelets (Bld) [#/Vol] 297 10*3/uL Normal 150-450 [facility] Comment on above: Performed By: #### L 100.0500 ####[facility] [address] [place], [address] RBC (Bld) [#/Vol] 4.18 10*6/uL Low 4.6-6.2 [facility] Comment on above: Performed By: #### L 100.0500 ####[facility] [address] [place], [address] RDW SD 40.0 fl Normal 35.1-43.9 [facility] Comment on above: Performed By: #### L 100.0500 ####[facility] [address] [place], [address] WBC (Bld) [#/Vol] 6.0 10*3/uL Normal 4.4-11.0 [facility] Comment on above: Performed By: #### L 100.0500 ####[facility] [address] [place], [place], [id number] Discharge Instructionon 080 Discharge Instruction Normal [facility] Basic Metabolic Profile (BMP )on 03-20-2024 BUN/CRE 9.8 RATIO Low 10-20 [facility] Comment on above: Performed By: #### L 500.2500 ####[facility] [address] [place], [address] CA,Total 8.9 mg/dL Normal 8.5-10.1 [facility] Comment on above: Performed By: #### L 500.2500 ####[facility] [address] [place], [address] Chloride [Moles/Vol] 94 mmol/L Low 98-107 [facility] Comment on above: Performed By: #### L 500.2500 ####[facility] [address] [place], [address] CO2 [Moles/Vol] 29.0 mmol/L Normal 21.0-32.0 [facility] Comment on above: Performed By: #### L 500.2500 ####[facility] [address] [place], [address] Creatinine [Mass/Vol] 0.92 mg/dL Normal 0.70-1.30 [facility] Comment on above: Result Comment: The validity of the calculated GFR GFRAA in patients over70 years has not been determined. Clinical correlation isessential. Performed By: #### L 500.2500 ####[facility] [address] [place], [address] ECRCL 77.14 ml/min Normal [facility] Comment on above: Performed By: #### L 500.2500 ####[facility] [address] [place], [address] EST GFR - AA 104 mL/min Normal >60 [facility] Comment on above: Result Comment: Afri can Slovak GFR Calc Performed By: #### L 500.2500 ####[facility] [address] [place], [address] GAP 6 Normal 5-15 [facility] Comment on above: Performed By: #### L 500.2500 ####[facility] [address] [place], [address] GFR/1.73 sq M.predicted among non-blacks MDRD (S/P/Bld) [Vol rate/Area] 86 mL/min/{1.73_m2} Normal >60 [facility] Comment on above: Result Comment: Non- GFR Calc Performed By: #### L 500.2500 ####[facility] [address] [place], [address] Glucose [Mass/Vol] 108 mg/dL High 74-106 [facility] Comment on above: Result Comment: Fast ing Glucose result from 100 to 125 mg/dLsuggests IMPAIRED HOMEOSTASIS per A.D.A. criteria. Performed By: #### L 500.2500 ####[facility] [address] [place], [address] Potassium [Moles/Vol] 3.0 mmol/L Low 3.5-5.1 [facility] Comment on above: Performed By: #### L 500.2500 ####[facility] [address] [place], [address] Sodium [Moles/Vol] 129 mmol/L Low 136-145 [facility] Comment on above: Performed By: #### L 500.2500 ####[facility] [address] [place], [address] Urea nitrogen [Mass/Vol] 9 mg/dL Normal 7-18 [facility] Comment on above: Performed By: #### L 500.2500 ####[facility] [address] [place], [address] Bedside Glucoseon 03-20-2024 FINGERSTICK GLU 110 mg/dL High 74-106 [facility] Comment on above: Result Comment: YASSINE GEMENT OF PATIENT CARE PER NURSING PROTOCOL Performed By: #### L 501.080 ####[facility] [address] [place], [address] FINGERSTICK GLU 127 mg/dL High 74-106 [facility] Comment on above: Result Comment: YASSINE GEMENT OF PATIENT CARE PER NURSING PROTOCOL Performed By: #### L 501.080 ####[facility] [address] [place], [address] Phosphoruson 03-20-2024 Phosphate [Mass/Vol] 3.1 mg/dL Normal 2.5-4.9 [facility] Comment on above: Performed By: #### L 501.2300 ####[facility] [address] [place], [address] Basic Metabolic Profile (BMP )on 03-19-2024 BUN/CRE 16.6 RATIO Normal 10-20 [facility] Comment on above: Performed By: #### L 500.2500 ####[facility] [address] [place], [address] CA,Total 8.7 mg/dL Normal 8.5-10.1 [facility] Comment on above: Performed By: #### L 500.2500 ####[facility] [address] [place], [address] Chloride [Moles/Vol] 95 mmol/L Low 98-107 [facility] Comment on above: Performed By: #### L 500.2500 ####[facility] [address] [place], [address] CO2 [Moles/Vol] 28.0 mmol/L Normal 21.0-32.0 [facility] Comment on above: Performed By: #### L 500.2500 ####[facility] [address] [place], [address] Creatinine [Mass/Vol] 0.78 mg/dL Normal 0.70-1.30 [facility] Comment on above: Result Comment: The validity of the calculated GFR GFRAA in patients over70 years has not been determined. Clinical correlation isessential. Performed By: #### L 500.2500 ####[facility] [address] [place], [address] ECRCL 88.72 ml/min Normal [facility] Comment on above: Performed By: #### L 500.2500 ####[facility] [address] [place], [address] EST GFR - AA 126 mL/min Normal >60 [facility] Comment on above: Result Comment: Afri can Slovak GFR Calc Performed By: #### L 500.2500 ####[facility] [address] [place], [address] GAP 6 Normal 5-15 [facility] Comment on above: Performed By: #### L 500.2500 ####[facility] [address] [place], [address] GFR/1.73 sq M.predicted among non-blacks MDRD (S/P/Bld) [Vol rate/Area] 104 mL/min/{1.73_m2} Normal >60 [facility] Comment on above: Result Comment: Non- GFR Calc Performed By: #### L 500.2500 ####[facility] [address] [place], [address] Glucose [Mass/Vol] 116 mg/dL High 74-106 [facility] Comment on above: Result Comment: Fast ing Glucose result from 100 to 125 mg/dLsuggests IMPAIRED HOMEOSTASIS per A.D.A. criteria. Performed By: #### L 500.2500 ####[facility] [address] [place], [address] Potassium [Moles/Vol] 3.3 mmol/L Low 3.5-5.1 [facility] Comment on above: Performed By: #### L 500.2500 ####[facility] [address] [place], [address] Sodium [Moles/Vol] 129 mmol/L Low 136-145 [facility] Comment on above: Performed By: #### L 500.2500 ####[facility] [address] [place], [address] Urea nitrogen [Mass/Vol] 13 mg/dL Normal 7-18 [facility] Comment on above: Performed By: #### L 500.2500 ####[facility] [address] [place], [address] Bedside Glucoseon 03-19-2024 FINGERSTICK GLU 138 mg/dL High 74-106 [facility] Comment on above: Result Comment: YASSINE GEMENT OF PATIENT CARE PER NURSING PROTOCOL Performed By: #### L 501.080 ####[facility] [address] [place], [address] FINGERSTICK GLU 140 mg/dL High 74-106 [facility] Comment on above: Result Comment: YASSINE GEMENT OF PATIENT CARE PER NURSING PROTOCOL Performed By: #### L 501.080 ####[facility] [address] [place], [address] FINGERSTICK GLU 163 mg/dL High 74-106 [facility] Comment on above: Result Comment: YASSINE TAVARES OF PATIENT CARE PER NURSING PROTOCOL Performed By: #### L 501.080 ####[facility] [address] [place], [address] CBC-Complete Blood Cnt No Di ffon 03-19-2024 Erythrocyte distribution width (RBC) [Ratio] 12.9 % Normal 11.6-14.6 [facility] Comment on above: Performed By: #### L 100.0500 ####[facility] [address] [place], [address] Hematocrit (Bld) [Volume fraction] 31.7 % Low 40-54 [facility] Comment on above: Performed By: #### L 100.0500 ####[facility] [address] [place], [address] Hemoglobin (Bld) [Mass/Vol] 11.1 g/dL Low 13.0-16.5 [facility] Comment on above: Performed By: #### L 100.0500 ####[facility] [address] [place], [address] MCH (RBC) [Entitic mass] 28.8 pg Normal 27.0-32.0 [facility] Comment on above: Performed By: #### L 100.0500 ####[facility] [address] [place], [address] MCHC (RBC) [Mass/Vol] 35.0 g/dL Normal 32-36 [facility] Comment on above: Performed By: #### L 100.0500 ####[facility] [address] [place], [address] MCV (RBC) [Entitic vol] 82.3 fL Normal 80-94 [facility] Comment on above: Performed By: #### L 100.0500 ####[facility] [address] [place], [address] Platelet mean volume (Bld) [Entitic vol] 8.0 fL Normal 6.2-12.0 [facility] Comment on above: Performed By: #### L 100.0500 ####[facility] [address] [place], [address] Platelets (Bld) [#/Vol] 230 10*3/uL Normal 150-450 [facility] Comment on above: Performed By: #### L 100.0500 ####[facility] [address] [place], [address] RBC (Bld) [#/Vol] 3.85 10*6/uL Low 4.6-6.2 [facility] Comment on above: Performed By: #### L 100.0500 ####[facility] [address] [place], [address] RDW SD 39.0 fl Normal 35.1-43.9 [facility] Comment on above: Performed By: #### L 100.0500 ####[facility] [address] [place], [address] WBC (Bld) [#/Vol] 6.1 10*3/uL Normal 4.4-11.0 [facility] Comment on above: Performed By: #### L 100.0500 ####[facility] [address] [place], [address] Consultation - Infectious Dx on 03-19-2024 Consultation - Infectious Dx Normal [facility] Vancomycin, Trough Levelon 0 03-19-2024 VANCO, TROUGH 12.1 ug/mL Normal 5.0-15.0 [facility] Comment on above: Order Comment: Comme nts: Trough to be drawn 30 mins prior to scheduled [id number] Result Comment: VANC OMYCIN STANDARED DRUG THERAPY TROUGH LEVEL: 5.0 - 15.0 mg/LVANCOMYCIN HIGH INTENSITY THERAPY TROUGH LEVEL: 15.0 - 20.0 mg/LHigh Intensity therapy recommended for serious lifethreatening infections include:- Bnoghstmbd-Fzpigynnpuxw-Ggpriewsr (Ventilator/Healtcare Associated)-SepsisPLEASE CONTACT PHARMACY SERVICES (#4036) FOR INTERPRETATIONOF RESULTS. Performed By: #### L 501.8820 ####[facility] [address] [place], [address] Basic Metabolic Profile (BMP )on 03-18-2024 BUN/CRE 28.9 RATIO High 10-20 [facility] Comment on above: Performed By: #### L 500.2500 ####[facility] [address] [place], [address] CA,Total 8.4 mg/dL Low 8.5-10.1 [facility] Comment on above: Performed By: #### L 500.2500 ####[facility] [address] [place], [address] Chloride [Moles/Vol] 98 mmol/L Normal 98-107 [facility] Comment on above: Performed By: #### L 500.2500 ####[facility] [address] [place], [address] CO2 [Moles/Vol] 23.0 mmol/L Normal 21.0-32.0 [facility] Comment on above: Performed By: #### L 500.2500 ####[facility] [address] [place], [address] Creatinine [Mass/Vol] 0.80 mg/dL Normal 0.70-1.30 [facility] Comment on above: Result Comment: The validity of the calculated GFR GFRAA in patients over70 years has not been determined. Clinical correlation isessential. Performed By: #### L 500.2500 ####[facility] [address] [place], [address] ECRCL 88.72 ml/min Normal [facility] Comment on above: Performed By: #### L 500.2500 ####[facility] [address] [place], [address] EST GFR - AA 124 mL/min Normal >60 [facility] Comment on above: Result Comment: Afri can Slovak GFR Calc Performed By: #### L 500.2500 ####[facility] [address] [place], [address] GAP 9 Normal 5-15 [facility] Comment on above: Performed By: #### L 500.2500 ####[facility] [address] [place], [address] GFR/1.73 sq M.predicted among non-blacks MDRD (S/P/Bld) [Vol rate/Area] 102 mL/min/{1.73_m2} Normal >60 [facility] Comment on above: Result Comment: Non- GFR Calc Performed By: #### L 500.2500 ####[facility] [address] [place], [address] Glucose [Mass/Vol] 110 mg/dL High 74-106 [facility] Comment on above: Result Comment: Fast ing Glucose result from 100 to 125 mg/dLsuggests IMPAIRED HOMEOSTASIS per A.D.A. criteria. Performed By: #### L 500.2500 ####[facility] [address] [place], [address] Potassium [Moles/Vol] 3.0 mmol/L Low 3.5-5.1 [facility] Comment on above: Performed By: #### L 500.2500 ####[facility] [address] [place], [address] Sodium [Moles/Vol] 130 mmol/L Low 136-145 [facility] Comment on above: Performed By: #### L 500.2500 ####[facility] [address] [place], [address] Urea nitrogen [Mass/Vol] 23 mg/dL High 7-18 [facility] Comment on above: Performed By: #### L 500.2500 ####[facility] [address] [place], [address] Bedside Glucoseon 03-18-2024 FINGERSTICK GLU 119 mg/dL High 74-106 [facility] Comment on above: Result Comment: YASSINE GEMENT OF PATIENT CARE PER NURSING PROTOCOL Performed By: #### L 501.080 ####[facility] [address] [facility] [address] FINGERSTICK GLU 112 mg/dL High -106 [facility] Comment on above: Result Comment: YASSINE GEMENT OF PATIENT CARE PER NURSING PROTOCOL Performed By: #### L 501.080 ####[facility] [address] [facility] [address] FINGERSTICK GLU 132 mg/dL High [facility]106 [facility] Comment on above: Result Comment: YASSINE GEMENT OF PATIENT CARE PER NURSING PROTOCOL Performed By: #### L 501.080 ####[facility] [address] [facility] [address] Brain W/WO Contraston 2023 Brain W/WO Contrast Normal [facility] MR/CON.PCM.NEon 03-18-2024 MR/CON.PCM.NE Normal [facility] Magnesiumon 03-18-2024 Magnesium [Mass/Vol] 1.9 mg/dL Normal 1.6-2.6 [facility] Comment on above: Performed By: #### L 501.5200 ####[facility] [address] [facility] [address] Spine Lumbar W/WO Contraston 03-18-2024 Spine Lumbar W/WO Contrast Normal [facility] Bedside Glucoseon 03-17-2024 FINGERSTICK GLU 125 mg/dL High 74-106 [facility] Comment on above: Result Comment: YASSINE GEMENT OF PATIENT CARE PER NURSING PROTOCOL Performed By: #### L 501.080 ####[facility] [address] [place], [address] FINGERSTICK GLU 120 mg/dL High 74-106 [facility] Comment on above: Result Comment: YASSINE GEMENT OF PATIENT CARE PER NURSING PROTOCOL Performed By: #### L 501.080 ####[facility] [address] [place], [address] FINGERSTICK GLU 133 mg/dL High 74-106 [facility] Comment on above: Result Comment: YASSINE GEMENT OF PATIENT CARE PER NURSING PROTOCOL Performed By: #### L 501.080 ####[facility] [address] [place], [address] CBC W/Diff, Automatedon 08 PLT EST ADEQUATE Normal ADEQ [facility] Comment on above: Performed By: #### L 100.0100, L500.4050 ####[facility] [address] [place], [address] COVID 19 AG RAPID (RN FRANK T)on 03-17-2024 SARS-CoV-2 (COVID-19) RNA CHARLES+probe Ql (Unsp spec) Normal [facility] Comment on above: Performed By: #### M 100.505 ####[facility] [address] [place], [address] Comprehensive Metabolic Prof ilon 03-17-2024 Albumin [Mass/Vol] 3.4 g/dL Normal 3.2-5.0 [facility] Comment on above: Order Comment: REDRA W. PREVIOUS SPECIMEN REJECTED DUE TOQNS. 03/17/24 0658 Ham Reaves. Result Comment: SST FOUND. Performed By: #### L 500.4050 ####[facility] [address] [place], [address] Albumin/Globulin [Mass ratio] 1.1 {ratio} Normal 0.9-2.4 [facility] Comment on above: Order Comment: REDRA W. PREVIOUS SPECIMEN REJECTED DUE TOQNS. 03/17/24657 Ham Reaves. Performed By: #### L 500.4050 ####[facility] [address] [place], [address] ALK P 73 U/L Normal 45-117 [facility] Comment on above: Order Comment: REDRA W. PREVIOUS SPECIMEN REJECTED DUE TOQNS. 03/17/2458 Ham Reaves. Result Comment: SST FOUND. Performed By: #### L 500.4050 ####[facility] [address] [place], [address] ALT [Catalytic activity/Vol] 21 U/L Normal 16-61 [facility] Comment on above: Order Comment: REDRA W. PREVIOUS SPECIMEN REJECTED DUE TOQNS. 03/17/2458 Ham Reaves. Result Comment: SST FOUND. Performed By: #### L 500.4050 ####[facility] [address] [place], [address] AST [Catalytic activity/Vol] 26 U/L Normal 15-37 [facility] Comment on above: Order Comment: REDRA W. PREVIOUS SPECIMEN REJECTED DUE TOQNS. 03/17/24657 Ham Reaves. Result Comment: Slig ht Hemolysis, Result may be falsely increased. Performed By: #### L 500.4050 ####[facility] [address] [place], [address] Bilirubin [Mass/Vol] 1.30 mg/dL High 0.20-1.00 [facility] Comment on above: Order Comment: REDRA W. PREVIOUS SPECIMEN REJECTED DUE TOQNS. 03/17/2458 Ham Reaves. Result Comment: For patients on eltrombopag therapy, use of Dimension [place] TBIL is not recommended. Performed By: #### L 500.4050 ####[facility] [address] [place], [address] BUN/CRE 22.7 RATIO High 10-20 [facility] Comment on above: Order Comment: REDRA W. PREVIOUS SPECIMEN REJECTED DUE TOQNS. 03/17/2458 Ham Reaves. Result Comment: SST FOUND. Performed By: #### L 500.4050 ####[facility] [address] [place], [phone] CA,Total 8.3 mg/dL Low 8.5-10.1 [facility] Comment on above: Order Comment: REDRA W. PREVIOUS SPECIMEN REJECTED DUE TOQNS. 03/17/2458 Ham Reaves. Result Comment: SST FOUND. Performed By: #### L 500.4050 ####[facility] [address] [place], [address] Chloride [Moles/Vol] 100 mmol/L Normal 98-107 [facility] Comment on above: Order Comment: REDRA W. PREVIOUS SPECIMEN REJECTED DUE TOQNS. 03/17/2458 Ham Reaves. Result Comment: SST FOUND. Performed By: #### L 500.4050 ####[facility] [address] [place], [address] CO2 [Moles/Vol] 22.0 mmol/L Normal 21.0-32.0 [facility] Comment on above: Order Comment: REDRA W. PREVIOUS SPECIMEN REJECTED DUE TOQNS. 03/17/2458 Ham Reaves. Result Comment: SST FOUND. Performed By: #### L 500.4050 ####[facility] [address] [place], [address] Creatinine [Mass/Vol] 1.10 mg/dL Normal 0.70-1.30 [facility] Comment on above: Order Comment: REDRA W. PREVIOUS SPECIMEN REJECTED DUE TOQNS. 03/17/24657 Ham Reaves. Result Comment: The validity of the calculated GFR GFRAA in patients over70 years has not been determined. Clinical correlation isessential. Performed By: #### L 500.4050 ####[facility] [address] [place], [address] ECRCL 64.52 ml/min Normal [facility] Comment on above: Order Comment: REDRA W. PREVIOUS SPECIMEN REJECTED DUE TOQNS. 03/17/2458 Ham Reaves. Performed By: #### L 500.4050 ####[facility] [address] [place], [address] EST GFR - AA 85 mL/min Normal >60 [facility] Comment on above: Order Comment: REDRA W. PREVIOUS SPECIMEN REJECTED DUE TOQNS. 03/17/2458 Ham Reaves. Result Comment: Afri can Slovak GFR Calc Performed By: #### L 500.4050 ####[facility] [address] [place], [address] GAP 10 Normal 5-15 [facility] Comment on above: Order Comment: REDRA W. PREVIOUS SPECIMEN REJECTED DUE TOQNS. 03/17/2458 Ham Reaves. Result Comment: SST FOUND. Performed By: #### L 500.4050 ####[facility] [address] [place], [address] GFR/1.73 sq M.predicted among non-blacks MDRD (S/P/Bld) [Vol rate/Area] 70 mL/min/{1.73_m2} Normal >60 [facility] Comment on above: Order Comment: REDRA W. PREVIOUS SPECIMEN REJECTED DUE TOQNS. 03/17/2458 Ham Reaves. Result Comment: Non- GFR Calc Performed By: #### L 500.4050 ####[facility] [address] [place], [address] Globulin (S) [Mass/Vol] 3.0 g/dL Normal 2.2-4.2 [facility] Comment on above: Order Comment: REDRA W. PREVIOUS SPECIMEN REJECTED DUE TOQNS. 03/17/2458 Ham Reaves. Performed By: #### L 500.4050 ####[facility] [address] [place], [address] Glucose [Mass/Vol] 112 mg/dL High 74-106 [facility] Comment on above: Order Comment: REDRA W. PREVIOUS SPECIMEN REJECTED DUE TOQNS. 03/17/2458 Ham Reaves. Result Comment: Fast ing Glucose result from 100 to 125 mg/dLsuggests IMPAIRED HOMEOSTASIS per A.D.A. criteria. Performed By: #### L 500.4050 ####[facility] [address] [place], [address] Potassium [Moles/Vol] 4.1 mmol/L Normal 3.5-5.1 [facility] Comment on above: Order Comment: REDRA W. PREVIOUS SPECIMEN REJECTED DUE TOQNS. 03/17/2458 Ham Reaves. Result Comment: Slig ht Hemolysis, Result may be falsely increased. Performed By: #### L 500.4050 ####[facility] [address] [place], [address] Sodium [Moles/Vol] 132 mmol/L Low 136-145 [facility] Comment on above: Order Comment: REDRA W. PREVIOUS SPECIMEN REJECTED DUE TOQNS. 03/17/2458 Ham Reaves. Result Comment: SST FOUND. Performed By: #### L 500.4050 ####[facility] [address] [place], [address] T PROT 6.4 g/dL Normal 6.4-8.2 [facility] Comment on above: Order Comment: REDRA W. PREVIOUS SPECIMEN REJECTED DUE TOQNS. 03/17/2458 Ham Reaves. Result Comment: SST FOUND. Performed By: #### L 500.4050 ####[facility] [address] [place], [address] Urea nitrogen [Mass/Vol] 25 mg/dL High 7-18 [facility] Comment on above: Order Comment: REDRA W. PREVIOUS SPECIMEN REJECTED DUE TOQNS. 03/17/2458 Ham Reaves. Result Comment: SST FOUND. Performed By: #### L 500.4050 ####[facility] [address] [place], [address] ALB Normal 3.2-5.0 [facility] Comment on above: Result Comment: This specimen has been REJECTED due to Laboratory criteria:Quanity Not Sufficient.PHLEBOTOMISTS has been notified of need of recollection.03/17/24656 Ham L White Performed By: #### L 100.0100, L500.4050 ####[facility] [address] [place], [address] ALK P Normal 45-117 [facility] Comment on above: Result Comment: This specimen has been REJECTED due to Laboratory criteria:Quanity Not Sufficient.PHLEBOTOMISTS has been notified of need of recollection.03/17/24656 Ham L White Performed By: #### L 100.0100, L500.4050 ####[facility] [address] [place], [address] ALT Normal 16-61 [facility] Comment on above: Result Comment: This specimen has been REJECTED due to Laboratory criteria:Quanity Not Sufficient.PHLEBOTOMISTS has been notified of need of recollection.03/17/24656 Ham L White Performed By: #### L 100.0100, L500.4050 ####[facility] [address] [place], [address] AST Normal 15-37 [facility] Comment on above: Result Comment: This specimen has been REJECTED due to Laboratory criteria:Quanity Not Sufficient.PHLEBOTOMISTS has been notified of need of recollection.03/17/24656 Ham L White Performed By: #### L 100.0100, L500.4050 ####[facility] [address] [place], [address] BUN Normal 7-18 [facility] Comment on above: Result Comment: This specimen has been REJECTED due to Laboratory criteria:Quanity Not Sufficient.PHLEBOTOMISTS has been notified of need of recollection.03/17/24656 Ham L White Performed By: #### L 100.0100, L500.4050 ####[facility] [address] [place], [address] BUN/CRE Normal 10-20 [facility] Comment on above: Result Comment: This specimen has been REJECTED due to Laboratory criteria:Quanity Not Sufficient.PHLEBOTOMISTS has been notified of need of recollection.03/17/24656 Ham Guzman White Performed By: #### L 100.0100, L500.4050 ####[facility] [address] [place], [address] CA,Total Normal 8.5-10.1 [facility] Comment on above: Result Comment: This specimen has been REJECTED due to Laboratory criteria:Quanity Not Sufficient.PHLEBOTOMISTS has been notified of need of recollection.03/17/24656 Ham Guzman White Performed By: #### L 100.0100, L500.4050 ####[facility] [address] [place], [address] CL Normal 98-107 [facility] Comment on above: Result Comment: This specimen has been REJECTED due to Laboratory criteria:Quanity Not Sufficient.PHLEBOTOMISTS has been notified of need of recollection.03/17/24656 Ham Guzman White Performed By: #### L 100.0100, L500.4050 ####[facility] [address] [place], [address] CO2 Normal 21.0-32.0 [facility] Comment on above: Result Comment: This specimen has been REJECTED due to Laboratory criteria:Quanity Not Sufficient.PHLEBOTOMISTS has been notified of need of recollection.03/17/24656 Ham Guzman White Performed By: #### L 100.0100, L500.4050 ####[facility] [address] [place], [address] CREAT,SERUM Normal 0.70-1.30 [facility] Comment on above: Result Comment: This specimen has been REJECTED due to Laboratory criteria:Quanity Not Sufficient.PHLEBOTOMISTS has been notified of need of recollection.03/17/24656 Ham L White Performed By: #### L 100.0100, L500.4050 ####[facility] [address] [place], [address] EST GFR Normal >60 [facility] Comment on above: Result Comment: This specimen has been REJECTED due to Laboratory criteria:Quanity Not Sufficient.PHLEBOTOMISTS has been notified of need of recollection.03/17/24656 Ham L White Performed By: #### L 100.0100, L500.4050 ####[facility] [address] [place], [address] EST GFR - AA Normal >60 [facility] Comment on above: Result Comment: This specimen has been REJECTED due to Laboratory criteria:Quanity Not Sufficient.PHLEBOTOMISTS has been notified of need of recollection.03/17/24656 Ham L White Performed By: #### L 100.0100, L500.4050 ####[facility] [address] [place], [address] GAP Normal 5-15 [facility] Comment on above: Result Comment: This specimen has been REJECTED due to Laboratory criteria:Quanity Not Sufficient.PHLEBOTOMISTS has been notified of need of recollection.03/17/24656 Ham L White Performed By: #### L 100.0100, L500.4050 ####[facility] [address] [place], [address] GLU Normal 74-106 [facility] Comment on above: Result Comment: This specimen has been REJECTED due to Laboratory criteria:Quanity Not Sufficient.PHLEBOTOMISTS has been notified of need of recollection.03/17/24656 Ham L White Performed By: #### L 100.0100, L500.4050 ####[facility] [address] [place], [address] Potassium Normal 3.5-5.1 [facility] Comment on above: Result Comment: This specimen has been REJECTED due to Laboratory criteria:Quanity Not Sufficient.PHLEBOTOMISTS has been notified of need of recollection.03/17/24656 Ham Guzman White Performed By: #### L 100.0100, L500.4050 ####[facility] [address] [place], [address] T BILI Normal 0.20-1.00 [facility] Comment on above: Result Comment: This specimen has been REJECTED due to Laboratory criteria:Quanity Not Sufficient.PHLEBOTOMISTS has been notified of need of recollection.03/17/24656 Ham Guzman White Performed By: #### L 100.0100, L500.4050 ####[facility] [address] [place], [address] T PROT Normal 6.4-8.2 [facility] Comment on above: Result Comment: This specimen has been REJECTED due to Laboratory criteria:Quanity Not Sufficient.PHLEBOTOMISTS has been notified of need of recollection.03/17/24656 Ham Guzman White Performed By: #### L 100.0100, L500.4050 ####[facility] [address] [place], [address] Comprehensive Metabolic Profil Normal 136-145 [facility] Comment on above: Result Comment: This specimen has been REJECTED due to Laboratory criteria:Quanity Not Sufficient.PHLEBOTOMISTS has been notified of need of recollection.03/17/24656 Ham Guzman White Performed By: #### L 100.0100, L500.4050 ####[facility] [address] [place], [address] H AND P Exam - Hospitaliston 03-17-2024 H&P Exam - Hospitalist Normal [facility] Urine Drug Screen (VISTA)on 03-17-2024 AMPHETAMINES Negative Normal <1000 ng/mL [facility] Comment on above: Performed By: #### M 200.1000, L503.5510, L100.0100, L500.2500, L501.9100, L501.9520, L503.6005, L505.5000, L509.7000 ####[facility] [address] [place], [place], [phone]([phone]) BARBITIURATES Negative Normal < 200 ng/mL [facility] Comment on above: Performed By: #### M 200.1000, L503.5510, L100.0100, L500.2500, L501.9100, L501.9520, L503.6005, L505.5000, L509.7000 ####[facility] [address] [place], [address] BENZODIAZIPINE Negative Normal < 200 ng/mL [facility] Comment on above: Performed By: #### M 200.1000, L503.5510, L100.0100, L500.2500, L501.9100, L501.9520, L503.6005, L505.5000, L509.7000 ####[facility] [address] [place], [address] COCAINE Negative Normal < 300 ng/mL [facility] Comment on above: Performed By: #### M 200.1000, L503.5510, L100.0100, L500.2500, L501.9100, L501.9520, L503.6005, L505.5000, L509.7000 ####[facility] [address] [place], [place], [phone] ECSTACY Negative Normal < 500 ng/mL [facility] Comment on above: Performed By: #### M 200.1000, L503.5510, L100.0100, L500.2500, L501.9100, L501.9520, L503.6005, L505.5000, L509.7000 ####[facility] [address] [place], [place], [phone]([phone]) METHADONE Negative Normal < 300 ng/mL [facility] Comment on above: Performed By: #### M 200.1000, L503.5510, L100.0100, L500.2500, L501.9100, L501.9520, L503.6005, L505.5000, L509.7000 ####[facility] [address] [place], [address] OPIATES Negative Normal < 300 ng/mL [facility] Comment on above: Performed By: #### M 200.1000, L503.5510, L100.0100, L500.2500, L501.9100, L501.9520, L503.6005, L505.5000, L509.7000 ####[facility] [address] [place], [address] PCP Negative Normal < 25 ng/mL [facility] Comment on above: Performed By: #### M 200.1000, L503.5510, L100.0100, L500.2500, L501.9100, L501.9520, L503.6005, L505.5000, L509.7000 ####[facility] [address] [place], [address] THC Positive Abnormal < 50 ng/mL [facility] Comment on above: Performed By: #### M 200.1000, L503.5510, L100.0100, L500.2500, L501.9100, L501.9520, L503.6005, L505.5000, L509.7000 ####[facility] [address] [place], [address] VISTA UDS PH 7 Normal [facility] Comment on above: Performed By: #### M 200.1000, L503.5510, L100.0100, L500.2500, L501.9100, L501.9520, L503.6005, L505.5000, L509.7000 ####[facility] [address] [place], [address] Alcohol, Blood (Medical)-Ser umon 03-16-2024 SERUM ETOH < 3.0 Normal [facility] Comment on above: Result Comment: The serum:whole blood ethanol ratio is approximately 1.14and varies slightly with hematocrit.Medical Alcohol reference interval and critical value innon-tolerant individuals; 50 - 100 Impairment 100 Intoxication 100 - 250 Severe Poisoning 250 - 400 Deep/possible fatal coma Performed By: #### M 200.1000, L503.5510, L100.0100, L500.2500, L501.9100, L501.9520, L503.6005, L505.5000, L509.7000 ####[facility] [address] [place], [address] Ammoniaon 03-16-2024 Ammonia (P) [Moles/Vol] 21.0 umol/L Normal 11-32 [facility] Comment on above: Performed By: #### M 200.1000, L503.5510, L100.0100, L500.2500, L501.9100, L501.9520, L503.6005, L505.5000, L509.7000 ####[facility] [address] [place], [address] Basic Metabolic Profile (BMP )on 03-16-2024 BUN/CRE 22.8 RATIO High 10-20 [facility] Comment on above: Performed By: #### M 200.1000, L503.5510, L100.0100, L500.2500, L501.9100, L501.9520, L503.6005, L505.5000, L509.7000 ####[facility] [address] [place], [address] CA,Total 9.8 mg/dL Normal 8.5-10.1 [facility] Comment on above: Performed By: #### M 200.1000, L503.5510, L100.0100, L500.2500, L501.9100, L501.9520, L503.6005, L505.5000, L509.7000 ####[facility] [address] [place], [address] Chloride [Moles/Vol] 96 mmol/L Low 98-107 [facility] Comment on above: Performed By: #### M 200.1000, L503.5510, L100.0100, L500.2500, L501.9100, L501.9520, L503.6005, L505.5000, L509.7000 ####[facility] [address] [place], [address] CO2 [Moles/Vol] 26.0 mmol/L Normal 21.0-32.0 [facility] Comment on above: Performed By: #### M 200.1000, L503.5510, L100.0100, L500.2500, L501.9100, L501.9520, L503.6005, L505.5000, L509.7000 ####[facility] [address] [place], [address] Creatinine [Mass/Vol] 1.27 mg/dL Normal 0.70-1.30 [facility] Comment on above: Result Comment: The validity of the calculated GFR GFRAA in patients over70 years has not been determined. Clinical correlation isessential. Performed By: #### M 200.1000, L503.5510, L100.0100, L500.2500, L501.9100, L501.9520, L503.6005, L505.5000, L509.7000 ####[facility] [address] [place], [address] EST GFR - AA 72 mL/min Normal >60 [facility] Comment on above: Result Comment: Afri can Slovak GFR Calc Performed By: #### M 200.1000, L503.5510, L100.0100, L500.2500, L501.9100, L501.9520, L503.6005, L505.5000, L509.7000 ####[facility] [address] [place], [address] GAP 8 Normal 5-15 [facility] Comment on above: Performed By: #### M 200.1000, L503.5510, L100.0100, L500.2500, L501.9100, L501.9520, L503.6005, L505.5000, L509.7000 ####[facility] [address] [place], [address] GFR/1.73 sq M.predicted among non-blacks MDRD (S/P/Bld) [Vol rate/Area] 59 mL/min/{1.73_m2} Low >60 [facility] Comment on above: Result Comment: Non- GFR Calc Performed By: #### M 200.1000, L503.5510, L100.0100, L500.2500, L501.9100, L501.9520, L503.6005, L505.5000, L509.7000 ####[facility] [address] [place], [address] Glucose [Mass/Vol] 115 mg/dL High 74-106 [facility] Comment on above: Result Comment: Fast ing Glucose result from 100 to 125 mg/dLsuggests IMPAIRED HOMEOSTASIS per A.D.A. criteria. Performed By: #### M 200.1000, L503.5510, L100.0100, L500.2500, L501.9100, L501.9520, L503.6005, L505.5000, L509.7000 ####[facility] [address] [place], [address] Potassium [Moles/Vol] 4.3 mmol/L Normal 3.5-5.1 [facility] Comment on above: Performed By: #### M 200.1000, L503.5510, L100.0100, L500.2500, L501.9100, L501.9520, L503.6005, L505.5000, L509.7000 ####[facility] [address] [place], [address] Sodium [Moles/Vol] 130 mmol/L Low 136-145 [facility] Comment on above: Performed By: #### M 200.1000, L503.5510, L100.0100, L500.2500, L501.9100, L501.9520, L503.6005, L505.5000, L509.7000 ####[facility] [address] [place], [address] Urea nitrogen [Mass/Vol] 29 mg/dL High 7-18 [facility] Comment on above: Performed By: #### M 200.1000, L503.5510, L100.0100, L500.2500, L501.9100, L501.9520, L503.6005, L505.5000, L509.7000 ####[facility] [address] [place], [address] Brain/Head without Contrasto n 03-16-2024 Brain/Head without Contrast Normal [facility] CBC W/Diff, Automatedon Absolute Lymph 0.83 X10 3/uL Normal 0.83-4.51 [facility] Comment on above: Performed By: #### M 200.1000, L503.5510, L100.0100, L500.2500, L501.9100, L501.9520, L503.6005, L505.5000, L509.7000 ####[facility] [address] [place], [address] Absolute Neut 5.4 X10 3/uL Normal 2.0-7.7 [facility] Comment on above: Performed By: #### M 200.1000, L503.5510, L100.0100, L500.2500, L501.9100, L501.9520, L503.6005, L505.5000, L509.7000 ####[facility] [address] [place], [address] Basophils/100 WBC (Bld) 0.4 % Normal 0-1 [facility] Comment on above: Performed By: #### M 200.1000, L503.5510, L100.0100, L500.2500, L501.9100, L501.9520, L503.6005, L505.5000, L509.7000 ####[facility] [address] [place], [address] Eosinophils/100 WBC (Bld) 0.6 % Normal 0-5 [facility] Comment on above: Performed By: #### M 200.1000, L503.5510, L100.0100, L500.2500, L501.9100, L501.9520, L503.6005, L505.5000, L509.7000 ####[facility] [address] [place], [address] Erythrocyte distribution width (RBC) [Ratio] 13.6 % Normal 11.6-14.6 [facility] Comment on above: Performed By: #### M 200.1000, L503.5510, L100.0100, L500.2500, L501.9100, L501.9520, L503.6005, L505.5000, L509.7000 ####[facility] [address] [place], [address] Hematocrit (Bld) [Volume fraction] 34.5 % Low 40-54 [facility] Comment on above: Performed By: #### M 200.1000, L503.5510, L100.0100, L500.2500, L501.9100, L501.9520, L503.6005, L505.5000, L509.7000 ####[facility] [address] [place], [address] Hemoglobin (Bld) [Mass/Vol] 11.4 g/dL Low 13.0-16.5 [facility] Comment on above: Performed By: #### M 200.1000, L503.5510, L100.0100, L500.2500, L501.9100, L501.9520, L503.6005, L505.5000, L509.7000 ####[facility] [address] [place], [address] IG% 0.300 Normal 0.0-0.9 [facility] Comment on above: Result Comment: IG% - Immature Granulocytes (promyelocytes, myelocytes andmetamyelocytes) > 1% indicates that a LEFT SHIFT is Present. Performed By: #### M 200.1000, L503.5510, L100.0100, L500.2500, L501.9100, L501.9520, L503.6005, L505.5000, L509.7000 ####[facility] [address] [place], [address] Lymphocytes/100 WBC (Bld) 11.9 % Low 19-41 [facility] Comment on above: Performed By: #### M 200.1000, L503.5510, L100.0100, L500.2500, L501.9100, L501.9520, L503.6005, L505.5000, L509.7000 ####[facility] [address] [place], [address] MCH (RBC) [Entitic mass] 28.4 pg Normal 27.0-32.0 [facility] Comment on above: Performed By: #### M 200.1000, L503.5510, L100.0100, L500.2500, L501.9100, L501.9520, L503.6005, L505.5000, L509.7000 ####[facility] [address] [place], [address] MCHC (RBC) [Mass/Vol] 33.0 g/dL Normal 32-36 [facility] Comment on above: Performed By: #### M 200.1000, L503.5510, L100.0100, L500.2500, L501.9100, L501.9520, L503.6005, L505.5000, L509.7000 ####[facility] [address] [place], [address] MCV (RBC) [Entitic vol] 85.8 fL Normal 80-94 [facility] Comment on above: Performed By: #### M 200.1000, L503.5510, L100.0100, L500.2500, L501.9100, L501.9520, L503.6005, L505.5000, L509.7000 ####[facility] [address] [place], [address] Monocytes/100 WBC (Bld) 9.2 % Normal 0-10 [facility] Comment on above: Performed By: #### M 200.1000, L503.5510, L100.0100, L500.2500, L501.9100, L501.9520, L503.6005, L505.5000, L509.7000 ####[facility] [address] [place], [address] Neutrophils/100 WBC (Bld) 77.6 % High 47-70 [facility] Comment on above: Performed By: #### M 200.1000, L503.5510, L100.0100, L500.2500, L501.9100, L501.9520, L503.6005, L505.5000, L509.7000 ####[facility] [address] [place], [address] Nucleated RBC (Bld) [#/Vol] 0 10*3/uL Normal 0-5 [facility] Comment on above: Performed By: #### M 200.1000, L503.5510, L100.0100, L500.2500, L501.9100, L501.9520, L503.6005, L505.5000, L509.7000 ####[facility] [address] [place], [address] Platelet mean volume (Bld) [Entitic vol] 8.8 fL Normal 6.2-12.0 [facility] Comment on above: Performed By: #### M 200.1000, L503.5510, L100.0100, L500.2500, L501.9100, L501.9520, L503.6005, L505.5000, L509.7000 ####[facility] [address] [place], [address] Platelets (Bld) [#/Vol] 299 10*3/uL Normal 150-450 [facility] Comment on above: Performed By: #### M 200.1000, L503.5510, L100.0100, L500.2500, L501.9100, L501.9520, L503.6005, L505.5000, L509.7000 ####[facility] [address] [place], [address] RBC (Bld) [#/Vol] 4.02 10*6/uL Low 4.6-6.2 [facility] Comment on above: Performed By: #### M 200.1000, L503.5510, L100.0100, L500.2500, L501.9100, L501.9520, L503.6005, L505.5000, L509.7000 ####[facility] [address] [place], [address] RDW SD 43.0 fl Normal 35.1-43.9 [facility] Comment on above: Performed By: #### M 200.1000, L503.5510, L100.0100, L500.2500, L501.9100, L501.9520, L503.6005, L505.5000, L509.7000 ####[facility] [address] [place], [place], [address] WBC (Bld) [#/Vol] 7.0 10*3/uL Normal 4.4-11.0 [facility] Comment on above: Performed By: #### M 200.1000, L503.5510, L100.0100, L500.2500, L501.9100, L501.9520, L503.6005, L505.5000, L509.7000 ####[facility] [address] [place], [place], [id number] Chest 1 View (Portable)on Chest 1 View (Portable) Normal [facility] Emergency Department Summary on 03-16-2024 Emergency Department Summary Normal [facility] Lactic Acidon 03-16-2024 Lactate [Moles/Vol] 1.3 mmol/L Normal 0.4-1.9 [facility] Comment on above: Order Comment: Y Performed By: #### M 200.1000, L503.5510, L100.0100, L500.2500, L501.9100, L501.9520, L503.6005, L505.5000, L509.7000 ####[facility] [address] [place], [address] Procalcitoninon 03-16-2024 Procalcitonin 0.08 ng/mL Normal 0.00-0.09 [facility] Comment on above: Result Comment: A pr ocalcitonin (PCT) level above 2.0 ng/mL on the first day of ICU admission is associated with a high risk for progression to severe sepsis and/or septic shock. A PCT level below 0.5 ng/mL on the first day of ICU admission is associated with a low risk for progression to severe and/or septic shock. Note: Concentrations <0.5 ng/mL do not exclude an infection on account of localized infections (without systemic signs) which can be associated with such low concentrations, or a systemic infection in its initial stages (<6 hours). Furthermore, increased procalcitonin can occur without infection. PCT concentrations between 0.5 and 2.0 ng/mL should be interpreted taking into account the patient's history. It is recommended to retest PCT within 6-24 hours if any concentrations <2 ng/mL are obtained. Performed By: #### M 200.1000, L503.5510, L100.0100, L500.2500, L501.9100, L501.9520, L503.6005, L505.5000, L509.7000 ####[facility] [address] [place], [address] Spine Lumbar without Contras ton 03-16-2024 Spine Lumbar without Contrast Normal [facility] Thyroid Stim Hormone (TSH)on 03-16-2024 TSH 1.53 uIU/mL Normal 0.358-3.74 [facility] Comment on above: Performed By: #### M 200.1000, L503.5510, L100.0100, L500.2500, L501.9100, L501.9520, L503.6005, L505.5000, L509.7000 ####[facility] [address] [place], [address] Urinalysis, Completeon 03-16 BACTERIA 0 SEEN Normal None Seen [facility] Comment on above: Order Comment: ZAHIDA CTOR TO SPECIFY Performed By: #### L 400.0001 ####[facility] [address] [place], [address] EPI,SQUAMOUS 0 SEEN Normal 0-5 [facility] Comment on above: Order Comment: ZAHIDA CTOR TO SPECIFY Performed By: #### L 400.0001 ####[facility] [address] [place], [address] Mucus Ql (Urine sed) 0 SEEN Normal [facility] Comment on above: Order Comment: ZAHIDA CTOR TO SPECIFY Performed By: #### L 400.0001 ####[facility] [address] [place], [address] RBC 0 SEEN Normal 0-5 [facility] Comment on above: Order Comment: ZAHIDA CTOR TO SPECIFY Performed By: #### L 400.0001 ####[facility] [address] [place], [address] WBC 0 SEEN Normal 0-5 [facility] Comment on above: Order Comment: COLLE CTOR TO SPECIFY Performed By: #### L 400.0001 ####[facility] [address] [place], [address] Venous Blood Gason 4 Blood Gas Type NORMA Normal [facility] Comment on above: Performed By: #### L 9000.0810 ####[facility] [address] [place], [address] CO2 [Moles/Vol] 25 mmol/L Normal 23-33 [facility] Comment on above: Performed By: #### L 9000.0810 ####[facility] [address] [place], [address] HCO3 (Bld) [Moles/Vol] 24 mmol/L Normal 22-26 [facility] Comment on above: Performed By: #### L 9000.0810 ####[facility] [address] [place], [address] O2 Delivery Dev Room Air Normal [facility] Comment on above: Performed By: #### L 9000.0810 ####[facility] [address] [place], [address] SITE Not entered [facility] Comment on above: Performed By: #### L 9000.0810 ####[facility] [address] [place], [address] VBG BE 1 mmol/L Normal -1.0-3.5 [facility] Comment on above: Performed By: #### L 9000.0810 ####[facility] [address] [place], [address] VBG pCO2 33.7 mmHg Low 41-51 [facility] Comment on above: Performed By: #### L 9000.0810 ####[facility] [address] [place], [place], [address] VBG pH 7.47 High 7.32-7.42 [facility] Comment on above: Performed By: #### L 9000.0810 ####[facility] [address] [place], [place], [address] VBG PO2 42 mmHg High 25-40 [facility] Comment on above: Performed By: #### L 9000.0810 ####[facility] [address] [place], [place], [id number] VBG SO2 81 High 50-70 [facility] Comment on above: Performed By: #### L 9000.0810 ####[facility] [address] [place], [place], [address] Thin prep Papanicolaou smear with manual screeningOrdered By: Ochoa Figueroa on 12-12-2023 Thin prep Papanicolaou smear with manual screening 101 mg/dL 74-106 [facility] Basophil percentageOrdered B y: Giuliano Pacheco on 12-10-2023 Basophil percentage 10.5 g/dL 13.0-16.5 [facility] Basophil percentage 129 mg/dL 74-106 [facility] Basophil percentage 138 mmol/L 136-145 [facility] Basophil percentage 3.7 mmol/L 3.5-5.1 [facility] Basophil percentage 105 mmol/L 98-107 [facility] Basophils (Bld) [#/Vol] 5.7 10*3/uL 4.4-11.0 [facility] Determination of erythrocyte mean corpuscular volume (MCV)Ordered By: Giuliano Pacheco on 12-10-2023 MCV (RBC) [Entitic vol] 89.5 fL 80-94 [facility] Erythrocyte distribution wid th ratioOrdered By: Giuliano Pacheco on 12-10-2023 Erythrocyte distribution width (RBC) [Ratio] 13.4 % 11.6-14.6 [facility] Erythrocyte distribution wid th standard deviationOrdered By: Giuliano Pacheco on 12-10-2023 Erythrocyte distribution width (RBC) [Entitic vol] 44.5 fL 35.1-43.9 [facility] Hematocrit Auto (Bld) [Volum e fraction]Ordered By: Giuliano Pacheco on 12-10-2023 Hematocrit (Bld) [Volume fraction] 32.5 % 40-54 [facility] No Panel InformationOrdered By: Giuliano Pacheco on 12-10-2023 28.9 pg 27.0-32.0 [facility] 32.3 g/dL 32-36 [facility] 273 K/mm3 150-450 [facility] 8.2 fl 6.2-12.0 [facility] 63 mL/min >60 [facility] 76 mL/min >60 [facility] 58.65 ml/min [facility] 19.0 RATIO 10-20 [facility] 27.0 mmol/L 21.0-32.0 [facility] RBC Auto (Bld) [#/Vol]Ordere d By: Giuliano Pacheco on 12-10-2023 RBC (Bld) [#/Vol] 3.63 10*6/uL 4.6-6.2 [facility] Serum or plasma calcium elver urement (mass/volume)Ordered By: Giuliano Pacheco on 12-10-2023 Calcium [Mass/Vol] 8.9 mg/dL 8.5-10.1 [facility] Serum or plasma creatinine m easurement (mass/volume)Ordered By: Giuliano Pacheco on 12-10-2023 Creatinine [Mass/Vol] 1.21 mg/dL 0.70-1.30 [facility] Serum or plasma urea nitroge n measurement (mass/volume)Ordered By: Giuliano Pacheco on 12-10-2023 Urea nitrogen [Mass/Vol] 23 mg/dL 7-18 [facility] Thin prep Papanicolaou smear with manual screeningOrdered By: Giuliano Pacheco on 12-10-2023 Thin prep Papanicolaou smear with manual screening 6 5-15 [facility] Absolute lymphocyte countOrd ered By: Momo Patino on 12-09-2023 Lymphocytes Auto (Unsp spec) [#/Vol] 1.38 10*3/uL 0.83-4.51 [facility] Automated lymphocyte count a s percentage of total leukocytesOrdered By: Momo Patino on 12-09-2023 Lymphocytes/100 WBC Auto (Unsp spec) 22.6 % 19-41 [facility] Basophil percentageOrdered B y: Momo Patino on 12-09-2023 Basophils (Bld) [#/Vol] 3.8 10*3/uL 2.0-7.7 [facility] Basophils/100 WBC (Bld) 62.5 % 47-70 [facility] Basophils/100 WBC (Bld) 9.7 % 0-10 [facility] Basophils/100 WBC (Bld) 4.3 % 0-5 [facility] Basophils/100 WBC (Bld) 0.7 % 0-1 [facility] Erythrocyte sedimentation ra teOrdered By: Momo Patino on 12-09-2023 ESR (Bld) [Velocity] 32 mm/h 0-20 [facility] Immature granulocytes/100 WB C Auto (Bld)Ordered By: Momo Patino on 12-09-2023 Immature granulocytes/100 WBC (Bld) 0.200 % 0.0-0.9 [facility] No Panel InformationOrdered By: Momo Patino on 12-09-2023 0 % 0-5 [facility] 26.80 mg/L 0.0-3.0 [facility] Basophil percentageOrdered B y: Tarik Wilkinson on 11-27-2023 Basophil percentage 10.3 g/dL 13.0-16.5 [facility] Basophil percentage 100 mg/dL 74-106 [facility] Basophil percentage 139 mmol/L 136-145 [facility] Basophil percentage 3.0 mmol/L 3.5-5.1 [facility] Basophil percentage 104 mmol/L 98-107 [facility] Basophils (Bld) [#/Vol] 6.3 10*3/uL 4.4-11.0 [facility] Determination of erythrocyte mean corpuscular volume (MCV)Ordered By: Tarik Wilkinson on 11-27-2023 MCV (RBC) [Entitic vol] 90.9 fL 80-94 [facility] Erythrocyte distribution wid th ratioOrdered By: Tarik Wilkinson on 11-27-2023 Erythrocyte distribution width (RBC) [Ratio] 13.8 % 11.6-14.6 [facility] Erythrocyte distribution wid th standard deviationOrdered By: Tarik Wilkinson on 11-27-2023 Erythrocyte distribution width (RBC) [Entitic vol] 46.2 fL 35.1-43.9 [facility] Erythrocyte sedimentation ra teOrdered By: Tarik Wilkinson on 11-27-2023 ESR (Bld) [Velocity] 11 mm/h 0-20 [facility] Hematocrit Auto (Bld) [Volum e fraction]Ordered By: Tarik Wilkinson on 11-27-2023 Hematocrit (Bld) [Volume fraction] 32.9 % 40-54 [facility] No Panel InformationOrdered By: Tarik Wilkinson on 11-27-2023 28.5 pg 27.0-32.0 [facility] 31.3 g/dL 32-36 [facility] 313 K/mm3 150-450 [facility] 8.3 fl 6.2-12.0 [facility] 60 mL/min >60 [facility] 73 mL/min >60 [facility] 11.1 RATIO 10-20 [facility] 30.0 mmol/L 21.0-32.0 [facility] RBC Auto (Bld) [#/Vol]Ordere d By: Tarik Wilkinson on 11-27-2023 RBC (Bld) [#/Vol] 3.62 10*6/uL 4.6-6.2 [facility] Serum or plasma calcium elver urement (mass/volume)Ordered By: Tarik Wilkinson on 11-27-2023 Calcium [Mass/Vol] 9.1 mg/dL 8.5-10.1 [facility] Serum or plasma creatinine m easurement (mass/volume)Ordered By: Tarik Wilkinson on 11-27-2023 Creatinine [Mass/Vol] 1.26 mg/dL 0.70-1.30 [facility] Serum or plasma trough vanco mycin levelOrdered By: Tarik Wilkinson on 11-27-2023 Vancomycin trough [Mass/Vol] 21.3 ug/mL 5.0-15.0 [facility] Serum or plasma urea nitroge n measurement (mass/volume)Ordered By: Tarik Wilkinson on 11-27-2023 Urea nitrogen [Mass/Vol] 14 mg/dL 7-18 [facility] Thin prep Papanicolaou smear with manual screeningOrdered By: Tarik Wilkinson on 11-27-2023 Thin prep Papanicolaou smear with manual screening 5 5-15 [facility] Basophil percentageOrdered B y: Tarik Wilkinson on 11-20-2023 Basophil percentage 10.0 g/dL 13.0-16.5 [facility] Basophil percentage 158 mg/dL 74-106 [facility] Basophil percentage 137 mmol/L 136-145 [facility] Basophil percentage 3.0 mmol/L 3.5-5.1 [facility] Basophil percentage 99 mmol/L 98-107 [facility] Basophils (Bld) [#/Vol] 6.8 10*3/uL 4.4-11.0 [facility] Determination of erythrocyte mean corpuscular volume (MCV)Ordered By: Tarik Wilkinson on 11-20-2023 MCV (RBC) [Entitic vol] 86.8 fL 80-94 [facility] Erythrocyte distribution wid th ratioOrdered By: Tarik Wilkinson on 11-20-2023 Erythrocyte distribution width (RBC) [Ratio] 13.5 % 11.6-14.6 [facility] Erythrocyte distribution wid th standard deviationOrdered By: Tarik Wilkinson on 11-20-2023 Erythrocyte distribution width (RBC) [Entitic vol] 42.6 fL 35.1-43.9 [facility] Erythrocyte sedimentation ra teOrdered By: Tarik Wilkinson on 11-20-2023 ESR (Bld) [Velocity] 9 mm/h 0-20 [facility] Hematocrit Auto (Bld) [Volum e fraction]Ordered By: Tarik Wilkinson on 11-20-2023 Hematocrit (Bld) [Volume fraction] 30.3 % 40-54 [facility] No Panel InformationOrdered By: Tarik Wilkinson on 11-20-2023 28.7 pg 27.0-32.0 [facility] 33.0 g/dL 32-36 [facility] 278 K/mm3 150-450 [facility] 8.9 fl 6.2-12.0 [facility] 67 mL/min >60 [facility] 82 mL/min >60 [facility] 18.4 RATIO 10-20 [facility] 29.0 mmol/L 21.0-32.0 [facility] RBC Auto (Bld) [#/Vol]Ordere d By: Tarik Wilkinson on 11-20-2023 RBC (Bld) [#/Vol] 3.49 10*6/uL 4.6-6.2 [facility] Serum or plasma calcium elver urement (mass/volume)Ordered By: Tarik Wilkinson on 11-20-2023 Calcium [Mass/Vol] 8.7 mg/dL 8.5-10.1 [facility] Serum or plasma creatinine m easurement (mass/volume)Ordered By: Tarik Wilkinson on 11-20-2023 Creatinine [Mass/Vol] 1.14 mg/dL 0.70-1.30 [facility] Serum or plasma trough vanco mycin levelOrdered By: Tarik Wilkinson on 11-20-2023 Vancomycin trough [Mass/Vol] 18.4 ug/mL 5.0-15.0 [facility] Serum or plasma urea nitroge n measurement (mass/volume)Ordered By: Tarik Wilkinson on 11-20-2023 Urea nitrogen [Mass/Vol] 21 mg/dL 7-18 [facility] Thin prep Papanicolaou smear with manual screeningOrdered By: Tarik Wilkinson on 11-20-2023 Thin prep Papanicolaou smear with manual screening 9 5-15 [facility] Basophil percentageOrdered B y: Tarik Wilkinson on 11-10-2023 Basophil percentage 177 mg/dL 74-106 [facility] Basophil percentage 136 mmol/L 136-145 [facility] Basophil percentage 3.1 mmol/L 3.5-5.1 [facility] Basophil percentage 100 mmol/L 98-107 [facility] No Panel InformationOrdered By: Tarik Wilkinson on 11-10-2023 66 mL/min >60 [facility] 80 mL/min >60 [facility] 13.8 RATIO 10-20 [facility] 27.0 mmol/L 21.0-32.0 [facility] Serum or plasma calcium elver urement (mass/volume)Ordered By: Tairk Wilkinson on 11-10-2023 Calcium [Mass/Vol] 9.2 mg/dL 8.5-10.1 [facility] Serum or plasma creatinine m easurement (mass/volume)Ordered By: Tarik Wilkinson on 11-10-2023 Creatinine [Mass/Vol] 1.16 mg/dL 0.70-1.30 [facility] Serum or plasma trough vanco mycin levelOrdered By: Tarik Wilkinson on 11-10-2023 Vancomycin trough [Mass/Vol] 12.1 ug/mL 5.0-15.0 [facility] Serum or plasma urea nitroge n measurement (mass/volume)Ordered By: Tarik Wilkinson on 11-10-2023 Urea nitrogen [Mass/Vol] 16 mg/dL 7-18 [facility] Thin prep Papanicolaou smear with manual screeningOrdered By: Tarik Wilkinson on 11-10-2023 Thin prep Papanicolaou smear with manual screening 9 5-15 [facility] Basophil percentageOrdered B y: Tarik Wilkinson on 11-09-2023 Basophil percentage 112 mg/dL 74-106 [facility] Basophil percentage 138 mmol/L 136-145 [facility] Basophil percentage 3.4 mmol/L 3.5-5.1 [facility] Basophil percentage 103 mmol/L 98-107 [facility] No Panel InformationOrdered By: Tarik Wilkinson on 11-09-2023 65 mL/min >60 [facility] 79 mL/min >60 [facility] 11.1 RATIO 10-20 [facility] 27.0 mmol/L 21.0-32.0 [facility] Serum or plasma calcium elver urement (mass/volume)Ordered By: Tarik Wilkinson on 11-09-2023 Calcium [Mass/Vol] 9.2 mg/dL 8.5-10.1 [facility] Serum or plasma creatinine m easurement (mass/volume)Ordered By: Tarik Wilkinson on 11-09-2023 Creatinine [Mass/Vol] 1.17 mg/dL 0.70-1.30 [facility] Serum or plasma trough vanco mycin levelOrdered By: Tarik Wilkinson on 11-09-2023 Vancomycin trough [Mass/Vol] 22.4 ug/mL 5.0-15.0 [facility] Serum or plasma urea nitroge n measurement (mass/volume)Ordered By: Tarik Wilkinson on 11-09-2023 Urea nitrogen [Mass/Vol] 13 mg/dL 7-18 [facility] Thin prep Papanicolaou smear with manual screeningOrdered By: Tarik Wilkinson on 11-09-2023 Thin prep Papanicolaou smear with manual screening 8 5-15 [facility] Basophil percentageOrdered B y: Tarik Wilkinson on 11-06-2023 Basophil percentage 10.7 g/dL 13.0-16.5 [facility] Basophil percentage 108 mg/dL 74-106 [facility] Basophil percentage 137 mmol/L 136-145 [facility] Basophil percentage 3.5 mmol/L 3.5-5.1 [facility] Basophil percentage 102 mmol/L 98-107 [facility] Basophils (Bld) [#/Vol] 6.4 10*3/uL 4.4-11.0 [facility] Determination of erythrocyte mean corpuscular volume (MCV)Ordered By: Tarik Wilkinson on 11-06-2023 MCV (RBC) [Entitic vol] 91.8 fL 80-94 [facility] Erythrocyte distribution wid th ratioOrdered By: Tarik Wilkinson on 11-06-2023 Erythrocyte distribution width (RBC) [Ratio] 13.7 % 11.6-14.6 [facility] Erythrocyte distribution wid th standard deviationOrdered By: Tarik Wilkinson on 11-06-2023 Erythrocyte distribution width (RBC) [Entitic vol] 46.5 fL 35.1-43.9 [facility] Erythrocyte sedimentation ra teOrdered By: Tarik Wilkinson on 11-06-2023 ESR (Bld) [Velocity] 23 mm/h 0-20 [facility] Hematocrit Auto (Bld) [Volum e fraction]Ordered By: Tarik Wilkinson on 11-06-2023 Hematocrit (Bld) [Volume fraction] 33.5 % 40-54 [facility] No Panel InformationOrdered By: Tarik Wilkinson on 11-06-2023 29.3 pg 27.0-32.0 [facility] 31.9 g/dL 32-36 [facility] 365 K/mm3 150-450 [facility] 8.0 fl 6.2-12.0 [facility] 65 mL/min >60 [facility] 79 mL/min >60 [facility] 12.0 RATIO 10-20 [facility] 28.0 mmol/L 21.0-32.0 [facility] RBC Auto (Bld) [#/Vol]Ordere d By: Tarik Wilkinson on 11-06-2023 RBC (Bld) [#/Vol] 3.65 10*6/uL 4.6-6.2 [facility] Serum or plasma calcium elver urement (mass/volume)Ordered By: Tarik Wilkinson on 11-06-2023 Calcium [Mass/Vol] 9.1 mg/dL 8.5-10.1 [facility] Serum or plasma creatinine m easurement (mass/volume)Ordered By: Tarik Wilkinson on 11-06-2023 Creatinine [Mass/Vol] 1.17 mg/dL 0.70-1.30 [facility] Serum or plasma trough vanco mycin levelOrdered By: Tarik Wilkinson on 11-06-2023 Vancomycin trough [Mass/Vol] 43.2 ug/mL 5.0-15.0 [facility] Serum or plasma urea nitroge n measurement (mass/volume)Ordered By: Tarik Wilkinson on 11-06-2023 Urea nitrogen [Mass/Vol] 14 mg/dL 7-18 [facility] Thin prep Papanicolaou smear with manual screeningOrdered By: Tarik Wilkinson on 11-06-2023 Thin prep Papanicolaou smear with manual screening 7 5-15 [facility] Absolute lymphocyte countOrd ered By: Vin Edmond on 11-01-2023 Lymphocytes Auto (Unsp spec) [#/Vol] 1.02 10*3/uL 0.83-4.51 [facility] Activated partial thrombopla stin time (aPTT) in platelet poor plasma by coagulation aOrdered By: Vin Edmond on 11-01-2023 aPTT Coag (PPP) [Time] 31.0 s 24.1-36.2 [facility] Automated lymphocyte count a s percentage of total leukocytesOrdered By: Vin Edmond on 11-01-2023 Lymphocytes/100 WBC Auto (Unsp spec) 12.5 % 19-41 [facility] Basophil percentageOrdered B y: Vin Edmond on 11-01-2023 Basophil percentage 10.1 g/dL 13.0-16.5 [facility] Basophil percentage 98 mg/dL 74-106 [facility] Basophil percentage 139 mmol/L 136-145 [facility] Basophil percentage 3.4 mmol/L 3.5-5.1 [facility] Basophil percentage 103 mmol/L 98-107 [facility] Basophils (Bld) [#/Vol] 8.1 10*3/uL 4.4-11.0 [facility] Basophils (Bld) [#/Vol] 6.3 10*3/uL 2.0-7.7 [facility] Basophils/100 WBC (Bld) 77.4 % 47-70 [facility] Basophils/100 WBC (Bld) 7.6 % 0-10 [facility] Basophils/100 WBC (Bld) 1.7 % 0-5 [facility] Basophils/100 WBC (Bld) 0.2 % 0-1 [facility] Determination of erythrocyte mean corpuscular volume (MCV)Ordered By: Vin Edmond on 11-01-2023 MCV (RBC) [Entitic vol] 88.5 fL 80-94 [facility] Erythrocyte distribution wid th ratioOrdered By: Vin Edmond on 11-01-2023 Erythrocyte distribution width (RBC) [Ratio] 13.8 % 11.6-14.6 [facility] Erythrocyte distribution wid th standard deviationOrdered By: Vin Edmond on 11-01-2023 Erythrocyte distribution width (RBC) [Entitic vol] 44.5 fL 35.1-43.9 [facility] Hematocrit Auto (Bld) [Volum e fraction]Ordered By: Vin Edmond on 11-01-2023 Hematocrit (Bld) [Volume fraction] 30.8 % 40-54 [facility] Immature granulocytes/100 WB C Auto (Bld)Ordered By: Vin Edmond on 11-01-2023 Immature granulocytes/100 WBC (Bld) 0.600 % 0.0-0.9 [facility] No Panel InformationOrdered By: Vin Edmond on 11-01-2023 29.0 pg 27.0-32.0 [facility] 32.8 g/dL 32-36 [facility] 269 K/mm3 150-450 [facility] 7.8 fl 6.2-12.0 [facility] 0 % 0-5 [facility] 13.3 SECONDS 11.7-14.9 [facility] 1.0 [facility] 85 mL/min >60 [facility] 102 mL/min >60 [facility] 75.50 ml/min [facility] 10.7 RATIO 10-20 [facility] 29.0 mmol/L 21.0-32.0 [facility] RBC Auto (Bld) [#/Vol]Ordere d By: Vin Edmond on 11-01-2023 RBC (Bld) [#/Vol] 3.48 10*6/uL 4.6-6.2 [facility] Serum or plasma calcium elver urement (mass/volume)Ordered By: Vin Edmond on 11-01-2023 Calcium [Mass/Vol] 8.7 mg/dL 8.5-10.1 [facility] Serum or plasma creatinine m easurement (mass/volume)Ordered By: Vin Edmond on 11-01-2023 Creatinine [Mass/Vol] 0.94 mg/dL 0.70-1.30 [facility] Serum or plasma urea nitroge n measurement (mass/volume)Ordered By: Vin Edmond on 11-01-2023 Urea nitrogen [Mass/Vol] 10 mg/dL - [facility] Thin prep Papanicolaou smear with manual screeningOrdered By: Vin Edmond on 11-01-2023 Thin prep Papanicolaou smear with manual screening 7 5-15 [facility] Basophil percentageOrdered B y: Tarik Wilkinson on 10-30-2023 Basophil percentage 10.8 g/dL 13.0-16.5 [facility] Basophil percentage 125 mg/dL 74-106 [facility] Basophil percentage 138 mmol/L 136-145 [facility] Basophil percentage 3.4 mmol/L 3.5-5.1 [facility] Basophil percentage 105 mmol/L 98-107 [facility] Basophils (Bld) [#/Vol] 7.2 10*3/uL 4.4-11.0 [facility] Determination of erythrocyte mean corpuscular volume (MCV)Ordered By: Tarik Wilkinson on 10-30-2023 MCV (RBC) [Entitic vol] 89.3 fL 80-94 [facility] Erythrocyte distribution wid th ratioOrdered By: Tarik Wilkinson on 10-30-2023 Erythrocyte distribution width (RBC) [Ratio] 13.9 % 11.6-14.6 [facility] Erythrocyte distribution wid th standard deviationOrdered By: Tarik Wilkinson on 10-30-2023 Erythrocyte distribution width (RBC) [Entitic vol] 45.3 fL 35.1-43.9 [facility] Erythrocyte sedimentation ra teOrdered By: Tarik Wilkinson on 10-30-2023 ESR (Bld) [Velocity] 19 mm/h 0-20 [facility] Hematocrit Auto (Bld) [Volum e fraction]Ordered By: Tarik Wilkinson on 10-30-2023 Hematocrit (Bld) [Volume fraction] 33.5 % 40-54 [facility] No Panel InformationOrdered By: Tarik Wilkinson on 10-30-2023 28.8 pg 27.0-32.0 [facility] 32.2 g/dL 32-36 [facility] 305 K/mm3 150-450 [facility] 8.5 fl 6.2-12.0 [facility] 83 mL/min >60 [facility] 101 mL/min >60 [facility] 12.6 RATIO 10-20 [facility] 27.0 mmol/L 21.0-32.0 [facility] RBC Auto (Bld) [#/Vol]Ordere d By: Tarik Wilkinson on 10-30-2023 RBC (Bld) [#/Vol] 3.75 10*6/uL 4.6-6.2 [facility] Serum or plasma calcium elver urement (mass/volume)Ordered By: Tarik Wilkinson on 10-30-2023 Calcium [Mass/Vol] 9.0 mg/dL 8.5-10.1 [facility] Serum or plasma creatinine m easurement (mass/volume)Ordered By: Tarik Wilkinson on 10-30-2023 Creatinine [Mass/Vol] 0.95 mg/dL 0.70-1.30 [facility] Serum or plasma trough vanco mycin levelOrdered By: Tarik Wilkinson on 10-30-2023 Vancomycin trough [Mass/Vol] 26.1 ug/mL 5.0-15.0 [facility] Serum or plasma urea nitroge n measurement (mass/volume)Ordered By: Tarik Wilkinson on 10-30-2023 Urea nitrogen [Mass/Vol] 12 mg/dL -18 [facility] Thin prep Papanicolaou smear with manual screeningOrdered By: Tarik Wilkinson on 10-30-2023 Thin prep Papanicolaou smear with manual screening 6 5-15 [facility] Absolute lymphocyte countOrd ered By: Ochoa Figueroa on 10-26-2023 Lymphocytes Auto (Unsp spec) [#/Vol] 1.15 10*3/uL 0.83-4.51 [facility] Automated lymphocyte count a s percentage of total leukocytesOrdered By: Ochoa Figueroa on 10-26-2023 Lymphocytes/100 WBC Auto (Unsp spec) 13.5 % 19-41 [facility] Basophil percentageOrdered B y: Ochoa Figueroa on 10-26-2023 Basophil percentage 12.4 g/dL 13.0-16.5 [facility] Basophil percentage 119 mg/dL 74-106 [facility] Basophil percentage 2.7 mg/dL 2.5-4.9 [facility] Basophil percentage 131 mmol/L 136-145 [facility] Basophil percentage 3.6 mmol/L 3.5-5.1 [facility] Basophil percentage 99 mmol/L 98-107 [facility] Basophils (Bld) [#/Vol] 8.6 10*3/uL 4.4-11.0 [facility] Basophils (Bld) [#/Vol] 6.5 10*3/uL 2.0-7.7 [facility] Basophils/100 WBC (Bld) 75.9 % 47-70 [facility] Basophils/100 WBC (Bld) 8.8 % 0-10 [facility] Basophils/100 WBC (Bld) 0.8 % 0-5 [facility] Basophils/100 WBC (Bld) 0.5 % 0-1 [facility] Determination of erythrocyte mean corpuscular volume (MCV)Ordered By: Ochoa Figueroa on 10-26-2023 MCV (RBC) [Entitic vol] 82.6 fL 80-94 [facility] Erythrocyte distribution wid th ratioOrdered By: Ochoa Figueroa on 10-26-2023 Erythrocyte distribution width (RBC) [Ratio] 13.3 % 11.6-14.6 [facility] Erythrocyte distribution wid th standard deviationOrdered By: Ochoa Figueroa on 10-26-2023 Erythrocyte distribution width (RBC) [Entitic vol] 39.8 fL 35.1-43.9 [facility] Hematocrit Auto (Bld) [Volum e fraction]Ordered By: Ochoa Figueroa on 10-26-2023 Hematocrit (Bld) [Volume fraction] 36.6 % 40-54 [facility] Immature granulocytes/100 WB C Auto (Bld)Ordered By: Ochoa Figueroa on 10-26-2023 Immature granulocytes/100 WBC (Bld) 0.500 % 0.0-0.9 [facility] No Panel InformationOrdered By: Ochoa Figueroa on 10-26-2023 28.0 pg 27.0-32.0 [facility] 33.9 g/dL 32-36 [facility] 248 K/mm3 150-450 [facility] 7.9 fl 6.2-12.0 [facility] 0 % 0-5 [facility] 137 mL/min >60 [facility] 166 mL/min >60 [facility] 88.72 ml/min [facility] 22.7 RATIO 10-20 [facility] 23.0 mmol/L 21.0-32.0 [facility] RBC Auto (Bld) [#/Vol]Ordere d By: Ochoa Figueroa on 10-26-2023 RBC (Bld) [#/Vol] 4.43 10*6/uL 4.6-6.2 [facility] Serum or plasma calcium elver urement (mass/volume)Ordered By: Ochoa Figueroa on 10-26-2023 Calcium [Mass/Vol] 8.7 mg/dL 8.5-10.1 [facility] Serum or plasma creatinine m easurement (mass/volume)Ordered By: Ochoa Figueroa on 10-26-2023 Creatinine [Mass/Vol] 0.62 mg/dL 0.70-1.30 [facility] Serum or plasma urea nitroge n measurement (mass/volume)Ordered By: Ochoa Figueroa on 10-26-2023 Urea nitrogen [Mass/Vol] 14 mg/dL 7-18 [facility] Thin prep Papanicolaou smear with manual screeningOrdered By: Vin Wheatley on 10-26-2023 Thin prep Papanicolaou smear with manual screening 170 mg/dL 74-106 [facility] Thin prep Papanicolaou smear with manual screening 180 mg/dL 74-106 [facility] Thin prep Papanicolaou smear with manual screeningOrdered By: Ohcoa Figueroa on 10-26-2023 Thin prep Papanicolaou smear with manual screening 9 5-15 [facility] Anaerobic cultureOrdered By: Carmita Ponce on 10-25-2023 Bacteria identified Anaer cx Nom (Unsp spec) No growth in 5 days. [facility] Fungus stainOrdered By: Tana Ponce on 10-25-2023 Fungus identified Fungus stain Nom (Unsp spec) [facility] Gram stain for investigation of transfusion reactionOrdered By: Carmita Ponce on 10-25-2023 Microscopic observation Gram stain Nom (Unsp spec) [facility] No Panel InformationOrdered By: Ventura Godoy on 10-25-2023 SEE PATHOLOGY REPORT [facility] No Panel InformationOrdered By: Carmita Ponce on 10-25-2023 No growth aerobically. [facility] No Panel InformationOrdered By: Rad Kolb on 10-25-2023 13.6 SECONDS 11.7-14.9 [facility] 1.0 [facility] Serum or plasma trough vanco mycin levelOrdered By: Tarik Wilkinson on 10-25-2023 Vancomycin trough [Mass/Vol] 13.6 ug/mL 5.0-15.0 [facility] Whole blood hemoglobin A1c/t otal hemoglobin ratio (mass fraction)Ordered By: Rad Kolb on 10-25-2023 HbA1c (Bld) [Mass fraction] 6.2 % 3.8-5.6 [facility] Basophil percentageOrdered B y: Ochoa Figueroa on 10-24-2023 Basophil percentage 5.9 g/dL 6.4-8.2 [facility] Basophil percentage 1.40 mg/dL 0.20-1.00 [facility] No Panel InformationOrdered By: Ochoa Figueroa on 10-24-2023 3.1 g/dL 2.2-4.2 [facility] 0.9 RATIO 0.9-2.4 [facility] 72 U/L 45-117 [facility] 18 U/L 16-61 [facility] Thin prep Papanicolaou smear with manual screeningOrdered By: Ochoa Figueroa on 10-24-2023 Thin prep Papanicolaou smear with manual screening 2.8 g/dL 3.2-5.0 [facility] Thin prep Papanicolaou smear with manual screening 17 U/L 15-37 [facility] No Panel InformationOrdered By: Ochoa Figueroa on 10-23-2023 177 pg/mL 211-911 [facility] Serum or plasma thyroid stim ulating hormone (TSH) measurement (units/volume)Ordered By: Ochoa Figueroa on 10-23-2023 TSH Qn 2.40 uIU/mL 0.358-3.74 [facility] Basophil percentageOrdered B y: Sara Reaves on 10-22-2023 Basophil percentage 179 mg/dL <200 [facility] Basophil percentage 59 mg/dL <199 [facility] No Panel InformationOrdered By: Sara Reaves on 10-22-2023 No growth in 5 days. [facility] 2.7 mg/dL 1.6-2.6 [facility] 44 mg/dL >40 [facility] 123 mg/dL 0-130 [facility] 12 mg/dL 5-40 [facility] Respiratory pathogens detect ion panel by molecular detection methodOrdered By: Sara Reaves on 10-22-2023 Respiratory pathogens DNA and RNA panel CHARLES+probe (Resp) [facility] Serum procalcitonin measurem entOrdered By: Sara Reaves on 10-22-2023 Procalcitonin [Mass/Vol] ng/mL 0.00-0.09 [facility] Absolute lymphocyte countOrd ered By: Kayli Granados on 10-21-2023 Lymphocytes Auto (Unsp spec) [#/Vol] 2.09 10*3/uL 0.83-4.51 [facility] Activated partial thrombopla stin time (aPTT) in platelet poor plasma by coagulation aOrdered By: Kayli Granados on 10-21-2023 aPTT Coag (PPP) [Time] 26.6 s 24.1-36.2 [facility] Automated lymphocyte count a s percentage of total leukocytesOrdered By: Kayli Granados on 10-21-2023 Lymphocytes/100 WBC Auto (Unsp spec) 20.2 % 19-41 [facility] Basophil percentageOrdered B y: Kayli Granados on 10-21-2023 Basophil percentage < 10.0 umol/L 11-32 [facility] Basophil percentage 0-5 SEEN /hpf 0-5 [facility] Basophil percentage 13.1 g/dL 13.0-16.5 [facility] Basophil percentage 131 mg/dL 74-106 [facility] Basophil percentage 131 mmol/L 136-145 [facility] Basophil percentage 3.2 mmol/L 3.5-5.1 [facility] Basophil percentage 97 mmol/L 98-107 [facility] Basophils (Bld) [#/Vol] 10.3 10*3/uL 4.4-11.0 [facility] Basophils (Bld) [#/Vol] 7.2 10*3/uL 2.0-7.7 [facility] Basophils/100 WBC (Bld) 69.6 % 47-70 [facility] Basophils/100 WBC (Bld) 9.6 % 0-10 [facility] Basophils/100 WBC (Bld) 0.0 % 0-5 [facility] Basophils/100 WBC (Bld) 0.2 % 0-1 [facility] Bilirubin Test strip Ql (U)O rdered By: Kayli Granados on 10-21-2023 Bilirubin Ql (U) Negative Negative [facility] Determination of erythrocyte mean corpuscular volume (MCV)Ordered By: Kayli Granados on 10-21-2023 MCV (RBC) [Entitic vol] 85.0 fL 80-94 [facility] Erythrocyte distribution wid th ratioOrdered By: Kayli Granados on 10-21-2023 Erythrocyte distribution width (RBC) [Ratio] 13.3 % 11.6-14.6 [facility] Erythrocyte distribution wid th standard deviationOrdered By: Kayli Granados on 10-21-2023 Erythrocyte distribution width (RBC) [Entitic vol] 41.1 fL 35.1-43.9 [facility] Hematocrit Auto (Bld) [Volum e fraction]Ordered By: Kayli Granados on 10-21-2023 Hematocrit (Bld) [Volume fraction] 39.1 % 40-54 [facility] Immature granulocytes/100 WB C Auto (Bld)Ordered By: Kayli Granados on 10-21-2023 Immature granulocytes/100 WBC (Bld) 0.400 % 0.0-0.9 [facility] Ketones Test strip Ql (U)Ord ered By: Kayli Granados on 10-21-2023 Ketones Ql (U) 15 mg/dl Negative [facility] Mucus LM Ql (Urine sed)Order ed By: Kayli Granados on 10-21-2023 Mucus Ql (Urine sed) 0 SEEN /hpf [facility] Nitrite Test strip Ql (U)Ord ered By: Kayli Granados on 10-21-2023 Nitrite Ql (U) Negative Negative [facility] No Panel InformationOrdered By: Kayli Granados on 10-21-2023 0 SEEN /hpf 0-5 [facility] 28.5 pg 27.0-32.0 [facility] 33.5 g/dL 32-36 [facility] 343 K/mm3 150-450 [facility] 8.1 fl 6.2-12.0 [facility] 0 % 0-5 [facility] 13.7 SECONDS 11.7-14.9 [facility] 1.1 [facility] 96 mL/min >60 [facility] 116 mL/min >60 [facility] 84.49 ml/min [facility] 28.5 RATIO 10-20 [facility] 28 pg/mL 3.0-78.0 [facility] 26.0 mmol/L 21.0-32.0 [facility] No Panel InformationOrdered By: Sara White on 10-21-2023 1.4 mg/dL 1.6-2.6 [facility] Protein Test strip Ql (U)Ord ered By: Kayli Granados on 10-21-2023 Protein Ql (U) 30 mg/dl Negative [facility] RBC Auto (Bld) [#/Vol]Ordere d By: Kayli Granados on 10-21-2023 RBC (Bld) [#/Vol] 4.60 10*6/uL 4.6-6.2 ost er [facility] Serum or plasma calcium elver urement (mass/volume)Ordered By: Kayli Granados on 10-21-2023 Calcium [Mass/Vol] 9.5 mg/dL 8.5-10.1 [facility] Serum or plasma creatinine m easurement (mass/volume)Ordered By: Kayli Granados on 10-21-2023 Creatinine [Mass/Vol] 0.84 mg/dL 0.70-1.30 [facility] Serum or plasma urea nitroge n measurement (mass/volume)Ordered By: Kayli Granados on 10-21-2023 Urea nitrogen [Mass/Vol] 24 mg/dL 7-18 [facility] Squamous epithelial cells de tection in urine sediment by light microscopyOrdered By: Kayli Granados on 10-21-2023 Epithelial cells.squamous LM Ql (Urine sed) 0 SEEN /hpf 0-5 [facility] Thin prep Papanicolaou smear with manual screeningOrdered By: Kayli Granados on 10-21-2023 Thin prep Papanicolaou smear with manual screening 8 5-15 [facility] Urine blood detectionOrdered By: Kayli Granados on 10-21-2023 RBC Ql (U) 25 /ul Negative [facility] Urine clarityOrdered By: Gracie Granados on 10-21-2023 Clarity (U) Clear Clear [facility] Urine color determinationOrd ered By: Kayli Granados on 10-21-2023 Color (U) Yellow Yellow [facility] Urine glucose detectionOrder ed By: Kayli Granados on 10-21-2023 Glucose Ql (U) 50 mg/dl Normal [facility] Urine leukocyte esterase det ection by dipstickOrdered By: Kayli Granados on 10-21-2023 Leukocyte esterase Test strip Ql (U) 25 /ul Negative [facility] Urine pHOrdered By: Kayli mares on 10-21-2023 pH (U) 7.0 [pH] 5.0 - 8.0 [facility] Urine sediment bacteria coun t by microscopy (number/high power field)Ordered By: Kayli Granados on 10-21-2023 Bacteria LM.HPF (Urine sed) [#/Area] 0 /[HPF] None Seen [facility] Urine specific gravity measu rementOrdered By: Kayli Granados on 10-21-2023 Specific gravity (U) [Rel density] 1.010 1.002-1.030 [facility] Urine urobilinogen measureme ntOrdered By: Kayli Granados on 10-21-2023 Urobilinogen Ql (U) Normal mg/dl Normal [facility] EGD Study observation Narrat abbion 10-11-2023 [facility] Absolute lymphocyte countOrd ered By: Elvia Pineda on 10-01-2023 Lymphocytes Auto (Unsp spec) [#/Vol] 2.11 10*3/uL 0.83-4.51 [facility] Amorphous sediment detection in urine sediment by light microscopyOrdered By: Elvia Pineda on 10-01-2023 Amorphous sediment LM Ql (Urine sed) 1+ URATE [facility] Automated lymphocyte count a s percentage of total leukocytesOrdered By: Elvia Pineda on 10-01-2023 Lymphocytes/100 WBC Auto (Unsp spec) 22.9 % 19-41 [facility] Basophil percentageOrdered B y: Elvia Pineda on 10-01-2023 Basophil percentage 0 SEEN /hpf 0-5 [facility] Basophil percentage 13.2 g/dL 13.0-16.5 [facility] Basophil percentage 141 mg/dL 74-106 [facility] Basophil percentage 7.6 g/dL 6.4-8.2 [facility] Basophil percentage 1.20 mg/dL 0.20-1.00 [facility] Basophil percentage 133 mmol/L 136-145 [facility] Basophil percentage 3.4 mmol/L 3.5-5.1 [facility] Basophil percentage 99 mmol/L 98-107 [facility] Basophils (Bld) [#/Vol] 9.2 10*3/uL 4.4-11.0 [facility] Basophils (Bld) [#/Vol] 6.2 10*3/uL 2.0-7.7 [facility] Basophils/100 WBC (Bld) 67.5 % 47-70 [facility] Basophils/100 WBC (Bld) 8.7 % 0-10 [facility] Basophils/100 WBC (Bld) 0.2 % 0-5 [facility] Basophils/100 WBC (Bld) 0.4 % 0-1 [facility] Bilirubin Test strip Ql (U)O rdered By: Elvia Pineda on 10-01-2023 Bilirubin Ql (U) Negative Negative [facility] Determination of erythrocyte mean corpuscular volume (MCV)Ordered By: Elvia Pineda on 10-01-2023 MCV (RBC) [Entitic vol] 86.2 fL 80-94 [facility] Erythrocyte distribution wid th ratioOrdered By: Elvia Pineda on 10-01-2023 Erythrocyte distribution width (RBC) [Ratio] 12.9 % 11.6-14.6 [facility] Erythrocyte distribution wid th standard deviationOrdered By: Elvia Pineda on 10-01-2023 Erythrocyte distribution width (RBC) [Entitic vol] 39.9 fL 35.1-43.9 [facility] Erythrocyte sedimentation ra teOrdered By: Elvia Pineda on 10-01-2023 ESR (Bld) [Velocity] 10 mm/h 0-20 [facility] Hematocrit Auto (Bld) [Volum e fraction]Ordered By: Elvia Pineda on 10-01-2023 Hematocrit (Bld) [Volume fraction] 40.1 % 40-54 [facility] Immature granulocytes/100 WB C Auto (Bld)Ordered By: Elvia Pineda on 10-01-2023 Immature granulocytes/100 WBC (Bld) 0.300 % 0.0-0.9 [facility] Ketones Test strip Ql (U)Ord ered By: Elvia Pineda on 10-01-2023 Ketones Ql (U) 15 mg/dl Negative [facility] Mucus LM Ql (Urine sed)Order ed By: Elvia Pineda on 10-01-2023 Mucus Ql (Urine sed) 0 SEEN /hpf [facility] Nitrite Test strip Ql (U)Ord ered By: Elvia Pineda on 10-01-2023 Nitrite Ql (U) Negative Negative [facility] No Panel InformationOrdered By: Elvia Pineda on 10-01-2023 0 SEEN /hpf 0-5 [facility] 28.4 pg 27.0-32.0 [facility] 32.9 g/dL 32-36 [facility] 316 K/mm3 150-450 [facility] 8.2 fl 6.2-12.0 [facility] 0 % 0-5 [facility] 76 mL/min >60 [facility] 92 mL/min >60 [facility] 68.91 ml/min [facility] 19.4 RATIO 10-20 [facility] 3.9 g/dL 2.2-4.2 [facility] 0.9 RATIO 0.9-2.4 [facility] 33 U/L 13-75 [facility] 102 U/L 45-117 [facility] 21 U/L 16-61 [facility] 26.0 mmol/L 21.0-32.0 [facility] 8.12 mg/L 0.0-3.0 [facility] Protein Test strip Ql (U)Ord ered By: Elvia Pineda on 10-01-2023 Protein Ql (U) Negative Negative [facility] RBC Auto (Bld) [#/Vol]Ordere d By: Elvia Pineda on 10-01-2023 RBC (Bld) [#/Vol] 4.65 10*6/uL 4.6-6.2 [facility] Serum or plasma calcium elver urement (mass/volume)Ordered By: Elvia Pineda on 10-01-2023 Calcium [Mass/Vol] 9.4 mg/dL 8.5-10.1 [facility] Serum or plasma creatinine m easurement (mass/volume)Ordered By: Elvia Pineda on 10-01-2023 Creatinine [Mass/Vol] 1.03 mg/dL 0.70-1.30 [facility] Serum or plasma urea nitroge n measurement (mass/volume)Ordered By: Elvia Pineda on 10-01-2023 Urea nitrogen [Mass/Vol] 20 mg/dL 7-18 [facility] Squamous epithelial cells de tection in urine sediment by light microscopyOrdered By: Elvia Pineda on 10-01-2023 Epithelial cells.squamous LM Ql (Urine sed) 0-5 SEEN /hpf 0-5 [facility] Thin prep Papanicolaou smear with manual screeningOrdered By: Elvia Pineda on 10-01-2023 Thin prep Papanicolaou smear with manual screening 3.7 g/dL 3.2-5.0 [facility] Thin prep Papanicolaou smear with manual screening 19 U/L 15-37 [facility] Thin prep Papanicolaou smear with manual screening 8 5-15 [facility] Urine blood detectionOrdered By: Elvia Pineda on 10-01-2023 RBC Ql (U) Negative Negative [facility] Urine clarityOrdered By: Kezia Pineda on 10-01-2023 Clarity (U) Sl. Cloudy Clear [facility] Urine color determinationOrd ered By: Elvia Pineda on 10-01-2023 Color (U) Yellow Yellow [facility] Urine glucose detectionOrder ed By: Elvia Pineda on 10-01-2023 Glucose Ql (U) Normal mg/dl Normal [facility] Urine leukocyte esterase det ection by dipstickOrdered By: Elvia Pineda on 10-01-2023 Leukocyte esterase Test strip Ql (U) Negative Negative [facility] Urine pHOrdered By: Elvia Pineda on 10-01-2023 pH (U) 6.0 [pH] 5.0 - 8.0 [facility] Urine sediment bacteria coun t by microscopy (number/high power field)Ordered By: Elvia Pienda on 10-01-2023 Bacteria LM.HPF (Urine sed) [#/Area] 0 /[HPF] None Seen [facility] Urine specific gravity measu rementOrdered By: Elvia Pineda on 10-01-2023 Specific gravity (U) [Rel density] 1.010 1.002-1.030 [facility] Urine urobilinogen measureme ntOrdered By: Elvia Pineda on 10-01-2023 Urobilinogen Ql (U) Normal mg/dl Normal [facility] Absolute lymphocyte countOrd ered By: Marshall Bear on 09-27-2023 Lymphocytes Auto (Unsp spec) [#/Vol] 2.20 10*3/uL 0.83-4.51 [facility] Automated lymphocyte count a s percentage of total leukocytesOrdered By: Marshall Bear on 09-27-2023 Lymphocytes/100 WBC Auto (Unsp spec) 22.8 % 19-41 [facility] Basophil percentageOrdered B y: Marshall Bear on 09-27-2023 Basophil percentage 13.1 g/dL 13.0-16.5 [facility] Basophil percentage 0 SEEN /hpf 0-5 [facility] Basophil percentage 145 mg/dL 74-106 [facility] Basophil percentage 7.7 g/dL 6.4-8.2 [facility] Basophil percentage 1.00 mg/dL 0.20-1.00 [facility] Basophil percentage 136 mmol/L 136-145 [facility] Basophil percentage 3.7 mmol/L 3.5-5.1 [facility] Basophil percentage 101 mmol/L 98-107 [facility] Basophils (Bld) [#/Vol] 9.7 10*3/uL 4.4-11.0 [facility] Basophils (Bld) [#/Vol] 6.5 10*3/uL 2.0-7.7 [facility] Basophils/100 WBC (Bld) 67.0 % 47-70 [facility] Basophils/100 WBC (Bld) 9.1 % 0-10 [facility] Basophils/100 WBC (Bld) 0.3 % 0-5 [facility] Basophils/100 WBC (Bld) 0.4 % 0-1 [facility] Bilirubin Test strip Ql (U)O rdered By: Marshall Bear on 09-27-2023 Bilirubin Ql (U) Negative Negative [facility] Determination of erythrocyte mean corpuscular volume (MCV)Ordered By: Marshall Bear on 09-27-2023 MCV (RBC) [Entitic vol] 87.4 fL 80-94 [facility] Erythrocyte distribution wid th ratioOrdered By: Marshall Bear on 09-27-2023 Erythrocyte distribution width (RBC) [Ratio] 13.0 % 11.6-14.6 [facility] Erythrocyte distribution wid th standard deviationOrdered By: Marshall Bear on 09-27-2023 Erythrocyte distribution width (RBC) [Entitic vol] 40.9 fL 35.1-43.9 [facility] Erythrocyte sedimentation ra teOrdered By: Marshall Bear on 09-27-2023 ESR (Bld) [Velocity] 12 mm/h 0-20 [facility] Hematocrit Auto (Bld) [Volum e fraction]Ordered By: Marshall Bear on 09-27-2023 Hematocrit (Bld) [Volume fraction] 40.4 % 40-54 [facility] Immature granulocytes/100 WB C Auto (Bld)Ordered By: Marshall Bear on 09-27-2023 Immature granulocytes/100 WBC (Bld) 0.400 % 0.0-0.9 [facility] Ketones Test strip Ql (U)Ord ered By: Marshall Bear on 09-27-2023 Ketones Ql (U) Negative Negative [facility] Mucus LM Ql (Urine sed)Order ed By: Marshall Bear on 09-27-2023 Mucus Ql (Urine sed) 0 SEEN /hpf [facility] Nitrite Test strip Ql (U)Ord ered By: Marshall Bear on 09-27-2023 Nitrite Ql (U) Negative Negative [facility] No Panel InformationOrdered By: Marshall Bear on 09-27-2023 28.4 pg 27.0-32.0 [facility] 32.4 g/dL 32-36 [facility] 352 K/mm3 150-450 [facility] 8.3 fl 6.2-12.0 [facility] 0 % 0-5 [facility] 0 SEEN /hpf 0-5 [facility] 93 mL/min >60 [facility] 113 mL/min >60 [facility] 16.3 RATIO 10-20 [facility] 4.0 g/dL 2.2-4.2 [facility] 0.9 RATIO 0.9-2.4 [facility] 106 U/L 45-117 [facility] 27 U/L 16-61 [facility] 26.0 mmol/L 21.0-32.0 [facility] < 2.90 mg/L 0.0-3.0 [facility] Protein Test strip Ql (U)Ord ered By: Marshall Bear on 09-27-2023 Protein Ql (U) Negative Negative [facility] RBC Auto (Bld) [#/Vol]Ordere d By: Marshall Bear on 09-27-2023 RBC (Bld) [#/Vol] 4.62 10*6/uL 4.6-6.2 [facility] Serum or plasma calcium elver urement (mass/volume)Ordered By: Marshall Bear on 09-27-2023 Calcium [Mass/Vol] 9.4 mg/dL 8.5-10.1 [facility] Serum or plasma creatinine m easurement (mass/volume)Ordered By: Marshall Bear on 09-27-2023 Creatinine [Mass/Vol] 0.86 mg/dL 0.70-1.30 [facility] Serum or plasma thyroid stim ulating hormone (TSH) measurement (units/volume)Ordered By: Marshall Bear on 09-27-2023 TSH Qn 1.61 uIU/mL 0.358-3.74 [facility] Serum or plasma urea nitroge n measurement (mass/volume)Ordered By: Marshall Bear on 09-27-2023 Urea nitrogen [Mass/Vol] 14 mg/dL 7-18 [facility] Squamous epithelial cells de tection in urine sediment by light microscopyOrdered By: Marshall Bear on 09-27-2023 Epithelial cells.squamous LM Ql (Urine sed) 0 SEEN /hpf 0-5 [facility] Thin prep Papanicolaou smear with manual screeningOrdered By: Marshall Bear on 09-27-2023 Thin prep Papanicolaou smear with manual screening 3.7 g/dL 3.2-5.0 [facility] Thin prep Papanicolaou smear with manual screening 18 U/L 15-37 [facility] Thin prep Papanicolaou smear with manual screening 9 5-15 [facility] Urine blood detectionOrdered By: Marshall Bear on 09-27-2023 RBC Ql (U) Negative Negative [facility] Urine clarityOrdered By: Kristen Bear on 09-27-2023 Clarity (U) Clear Clear [facility] Urine color determinationOrd ered By: Marshall Bear on 09-27-2023 Color (U) YELLOW Yellow [facility] Urine glucose detectionOrder ed By: Marshall Bear on 09-27-2023 Glucose Ql (U) Normal mg/dl Normal [facility] Urine leukocyte esterase det ection by dipstickOrdered By: Marshall Bear on 09-27-2023 Leukocyte esterase Test strip Ql (U) Negative Negative [facility] Urine pHOrdered By: Marshall villalba on 09-27-2023 pH (U) 6.0 [pH] 5.0 - 8.0 [facility] Urine sediment bacteria coun t by microscopy (number/high power field)Ordered By: Marshall Bear on 09-27-2023 Bacteria LM.HPF (Urine sed) [#/Area] 0 /[HPF] None Seen [facility] Urine specific gravity measu rementOrdered By: Marshall Bear on 09-27-2023 Specific gravity (U) [Rel density] 1.010 1.002-1.030 [facility] Urine urobilinogen measureme ntOrdered By: Marshall Bear on 09-27-2023 Urobilinogen Ql (U) Normal mg/dl Normal [facility] Basophil percentageOrdered B y: Jeff Meek on 09-26-2023 Basophil percentage 0 SEEN /hpf 0-5 [facility] Bilirubin Test strip Ql (U)O rdered By: Jeff Meek on 09-26-2023 Bilirubin Ql (U) 1 mg/dL Negative [facility] Culture, urineOrdered By: St kelli Meek on 09-26-2023 Bacteria identified Cx Nom (U) Culture exhibits no growth. [facility] Bacteria identified Cx Nom (U) Culture exhibits no growth. [facility] Ketones Test strip Ql (U)Ord ered By: Jeff Meek on 09-26-2023 Ketones Ql (U) 5 mg/dl Negative [facility] Mucus LM Ql (Urine sed)Order ed By: Jeff Meek on 09-26-2023 Mucus Ql (Urine sed) 0 SEEN /hpf [facility] Nitrite Test strip Ql (U)Ord ered By: Jeff Meek on 09-26-2023 Nitrite Ql (U) Negative Negative [facility] No Panel InformationOrdered By: Jeff Meek on 09-26-2023 0-5 SEEN /hpf 0-5 [facility] No Panel Informationon 09-26 [place] [facility] Clear [facility] Negative [facility] 1.010 [facility] 7.0 [facility] Large (3+) [facility] 2+ [facility] Negatve [facility] Negative [facility] Negative [facility] Protein Test strip Ql (U)Ord ered By: Jeff Meek on 09-26-2023 Protein Ql (U) 30 mg/dl Negative [facility] Squamous epithelial cells de tection in urine sediment by light microscopyOrdered By: Jeff Meek on 09-26-2023 Epithelial cells.squamous LM Ql (Urine sed) 0 SEEN /hpf 0-5 [facility] Urine blood detectionOrdered By: Jeff Meek on 09-26-2023 RBC Ql (U) Negative Negative [facility] Urine clarityOrdered By: Bryan Meek on 09-26-2023 Clarity (U) Clear Clear [facility] Urine color determinationOrd ered By: Jeff Meek on 09-26-2023 Color (U) Yellow Yellow [facility] Urine glucose detectionOrder ed By: Jeff Meek on 09-26-2023 Glucose Ql (U) Normal mg/dl Normal [facility] Urine leukocyte esterase det ection by dipstickOrdered By: Jeff Meek on 09-26-2023 Leukocyte esterase Test strip Ql (U) 25 /ul Negative [facility] Urine pHOrdered By: Jeff goss on 09-26-2023 pH (U) 5.0 [pH] 5.0 - 8.0 [facility] Urine sediment bacteria coun t by microscopy (number/high power field)Ordered By: Jeff Meek on 09-26-2023 Bacteria LM.HPF (Urine sed) [#/Area] 0 /[HPF] None Seen [facility] Urine specific gravity measu rementOrdered By: Jeff Meek on 09-26-2023 Specific gravity (U) [Rel density] 1.015 1.002-1.030 [facility] Urine urobilinogen measureme ntOrdered By: Jeff Meek on 09-26-2023 Urobilinogen Ql (U) 1 mg/dl Normal [facility] Absolute lymphocyte countOrd ered By: Marshall Bear on 08-21-2023 Lymphocytes Auto (Unsp spec) [#/Vol] 1.86 10*3/uL 0.83-4.51 [facility] Basophil percentageOrdered B y: Marshall Hernandezner on 08-21-2023 Basophil percentage 118 mg/dL 74-106 [facility] Basophil percentage 7.5 g/dL 6.4-8.2 [facility] Basophil percentage 0.80 mg/dL 0.20-1.00 [facility] Basophil percentage 136 mmol/L 136-145 [facility] Basophil percentage 4.0 mmol/L 3.5-5.1 [facility] Basophil percentage 102 mmol/L 98-107 [facility] Basophils (Bld) [#/Vol] 6.8 10*3/uL 4.4-11.0 [facility] Basophils (Bld) [#/Vol] 4.2 10*3/uL 2.0-7.7 [facility] Basophils/100 WBC (Bld) 0.4 % 0-1 [facility] Basophils/100 WBC (Bld) 61.6 % 47-70 [facility] Basophils/100 WBC (Bld) 1.9 % 0-5 [facility] Bilirubin [Mass/Vol] 0.80 mg/dL 0.20-1.00 [facility] Comment on above: For patients on eltr ombopag therapy, use of Dimension [place] TBIL is not recommended. Chloride [Moles/Vol] 102 mmol/L 98-107 [facility] Eosinophils/100 WBC (Bld) 1.9 % 0-5 [facility] Glucose [Mass/Vol] 118 mg/dL 74-106 [facility] Comment on above: Fasting Glucose resu lt from 100 to 125 mg/dL suggests IMPAIRED HOMEOSTASIS per A.D.A. criteria. Neutrophils (Bld) [#/Vol] 4.2 10*3/uL 2.0-7.7 [facility] Neutrophils/100 WBC (Bld) 61.6 % 47-70 [facility] Potassium [Moles/Vol] 4.0 mmol/L 3.5-5.1 [facility] Protein [Mass/Vol] 7.5 g/dL 6.4-8.2 [facility] Sodium [Moles/Vol] 136 mmol/L 136-145 [facility] WBC (Bld) [#/Vol] 6.8 10*3/uL 4.4-11.0 [facility] Blood erythrocytes count (nu mber/volume)Ordered By: Marshall Bear on 08-21-2023 RBC (Bld) [#/Vol] 4.47 10*6/uL 4.6-6.2 [facility] Blood hemoglobin measurement (mass/volume)Ordered By: Marshall Bear on 08-21-2023 Hemoglobin (Bld) [Mass/Vol] 12.8 g/dL 13.0-16.5 [facility] Blood lymphocytes/100 leukoc ytesOrdered By: Marshall Bear on 08-21-2023 Lymphocytes/100 WBC (Bld) 27.5 % 19-41 [facility] Blood monocytes/100 leukocyt esOrdered By: Marshall Bear on 08-21-2023 Monocytes/100 WBC (Bld) 8.0 % 0-10 [facility] Blood platelet mean volumeOr dered By: Marshall Bear on 08-21-2023 Platelet mean volume (Bld) [Entitic vol] 8.2 fL 6.2-12.0 [facility] Determination of erythrocyte mean corpuscular volume (MCV)Ordered By: Marshall Bear on 08-21-2023 MCV (RBC) [Entitic vol] 89.9 fL 80-94 [facility] Hematocrit Auto (Bld) [Volum e fraction]Ordered By: Marshall Bear on 08-21-2023 Hematocrit (Bld) [Volume fraction] 40.2 % 40-54 [facility] Laboratory - Chemistry and C hemistry - challengeOrdered By: Marshall Bear on 08-21-2023 ALP [Catalytic activity/Vol] 117 U/L 45-117 [facility] ALT [Catalytic activity/Vol] 28 U/L 16-61 [facility] CO2 [Moles/Vol] 28.0 mmol/L 21.0-32.0 [facility] Globulin (S) [Mass/Vol] 4.0 g/dL 2.2-4.2 [facility] Magnesium [Mass/Vol] 1.9 mg/dL 1.6-2.6 [facility] Urea nitrogen/Creatinine [Mass ratio] 19.7 mg/mg 10-20 [facility] - Hematology and Cell countsOrdered By: Marshall Bear on 08-21-2023 Erythrocyte distribution width (RBC) [Entitic vol] 41.7 fL 35.1-43.9 [facility] Erythrocyte distribution width (RBC) [Ratio] 12.7 % 11.6-14.6 [facility] Immature granulocytes/100 WBC (Bld) 0.600 % 0.0-0.9 [facility] Comment on above: IG% - Immature Granu locytes (promyelocytes, myelocytes and metamyelocytes) > 1% indicates that a LEFT SHIFT is Present. MCH (RBC) [Entitic mass] 28.6 pg 27.0-32.0 [facility] Nucleated RBC/100 WBC (Bld) [Ratio] 0 % 0-5 [facility] MCHC Auto (RBC) [Mass/Vol]Or dered By: Marshall Bear on 08-21-2023 MCHC (RBC) [Mass/Vol] 31.8 g/dL 32-36 [facility] No Panel InformationOrdered By: Marshall Bear on 08-21-2023 Estimated GFR (MDRD) Amer 105 mL/min >60 [facility] Comment on above: GFR Calc Estimated GFR (MDRD) Non-Af Amer 87 mL/min >60 [facility] Comment on above: Non- GFR Calc Prostate Specific Antigen Total 1.95 ng/mL 0.0-4.0 [facility] Comment on above: This test was perfor med using the TPSA assay method [facility]. Values obtained with differentassay methods cannot be used interchangably.When changing PSA assays in the course of monitoring apatient, additional sequential testing should be carriedout to confirm baseline values. Thyroid Stimulating Hormone (TSH) 3.05 uIU/mL 0.358-3.74 [facility] Vitamin D 25-Hydroxy 42.4 ng/mL [facility] Comment on above: Vitamin D 25(OH) Sta tus Range Deficiency <20 ng/mL (50nmol/L) Insufficiency 20 - 30 ng/mL (50 - 75 nmol/L) Sufficiency 30 - 100 ng/mL (75 - 250 nmol/L) Toxicity >100 ng/mL (>250 nmol/L) 28.6 pg 27.0-32.0 [facility] 12.7 % 11.6-14.6 [facility] 41.7 fl 35.1-43.9 [facility] 0.600 % 0.0-0.9 [facility] 0 % 0-5 [facility] 87 mL/min >60 [facility] 105 mL/min >60 [facility] 19.7 RATIO 10-20 [facility] 4.0 g/dL 2.2-4.2 [facility] 117 U/L 45-117 [facility] 28 U/L 16-61 [facility] 1.9 mg/dL 1.6-2.6 [facility] 28.0 mmol/L 21.0-32.0 [facility] 3.05 uIU/mL 0.358-3.74 [facility] 1.95 ng/mL 0.0-4.0 [facility] 42.4 ng/mL [facility] Platelets bldOrdered By: Kristen Bear on 08-21-2023 Platelets (Bld) [#/Vol] 320 10*3/uL 150-450 [facility] Serum or plasma albumin elver urement (mass/volume)Ordered By: Marshall Bear on 08-21-2023 Albumin [Mass/Vol] 3.5 g/dL 3.2-5.0 [facility] Serum or plasma albumin/glob ulin mass ratioOrdered By: Marshall Bear on 08-21-2023 Albumin/Globulin [Mass ratio] 0.9 {ratio} 0.9-2.4 [facility] Serum or plasma calcium elver urement (mass/volume)Ordered By: Marshall Bear on 08-21-2023 Calcium [Mass/Vol] 9.2 mg/dL 8.5-10.1 [facility] Serum or plasma creatinine m easurement (mass/volume)Ordered By: Marshall Bear on 08-21-2023 Creatinine [Mass/Vol] 0.91 mg/dL 0.70-1.30 [facility] Comment on above: The validity of the calculated GFR & GFRAA in patients over 70 years has not been determined. Clinical correlation is essential. Serum or plasma urea nitroge n measurement (mass/volume)Ordered By: Marshall Bear on 08-21-2023 Urea nitrogen [Mass/Vol] 18 mg/dL 7-18 [facility] Thin prep Papanicolaou smear with manual screeningOrdered By: Marshall Bear on 08-21-2023 Thin prep Papanicolaou smear with manual screening 16 U/L 15-37 [facility] Thin prep Papanicolaou smear with manual screening 6 5-15 [facility] Absolute lymphocyte countOrd ered By: Elvia Pineda on 08-14-2023 Lymphocytes Auto (Unsp spec) [#/Vol] 2.03 10*3/uL 0.83-4.51 [facility] Basophil percentageOrdered B y: Elvia Pineda on 08-14-2023 Basophil percentage 0 SEEN /hpf 0-5 [facility] Basophil percentage 168 mg/dL 74-106 [facility] Basophil percentage 7.3 g/dL 6.4-8.2 [facility] Basophil percentage 1.50 mg/dL 0.20-1.00 [facility] Basophil percentage 136 mmol/L 136-145 [facility] Basophil percentage 3.9 mmol/L 3.5-5.1 [facility] Basophil percentage 102 mmol/L 98-107 [facility] Basophil percentage 2.3 mmol/L 0.4-2.0 [facility] Basophils (Bld) [#/Vol] 9.5 10*3/uL 4.4-11.0 [facility] Basophils (Bld) [#/Vol] 6.3 10*3/uL 2.0-7.7 [facility] Basophils/100 WBC (Bld) 0.3 % 0-1 [facility] Basophils/100 WBC (Bld) 67.0 % 47-70 [facility] Basophils/100 WBC (Bld) 3.6 % 0-5 [facility] Bilirubin [Mass/Vol] 1.50 mg/dL 0.20-1.00 [facility] Comment on above: For patients on eltr ombopag therapy, use of Dimension [place] TBIL is not recommended. Chloride [Moles/Vol] 102 mmol/L 98-107 [facility] Eosinophils/100 WBC (Bld) 3.6 % 0-5 [facility] Glucose [Mass/Vol] 168 mg/dL 74-106 [facility] Comment on above: Fasting Glucose resu lt greater than or equal to 126 mg/dL suggests DIABETES MELLITUS per A.D.A. criteria. Lactate [Moles/Vol] 2.3 mmol/L 0.4-2.0 [facility] Comment on above: Critical Result(s) C alled at: 16:43:02 08/14/2023 by: Erica Eubanks to Thee Ramos. Results read back by same. Neutrophils (Bld) [#/Vol] 6.3 10*3/uL 2.0-7.7 [facility] Neutrophils/100 WBC (Bld) 67.0 % 47-70 [facility] Potassium [Moles/Vol] 3.9 mmol/L 3.5-5.1 [facility] Protein [Mass/Vol] 7.3 g/dL 6.4-8.2 [facility] Sodium [Moles/Vol] 136 mmol/L 136-145 [facility] WBC (Bld) [#/Vol] 9.5 10*3/uL 4.4-11.0 [facility] Bilirubin Test strip Ql (U)O rdered By: Elvia Pineda on 08-14-2023 Bilirubin Ql (U) Negative Negative [facility] Blood erythrocytes count (nu mber/volume)Ordered By: Elvia Pineda on 08-14-2023 RBC (Bld) [#/Vol] 4.64 10*6/uL 4.6-6.2 [facility] Blood hemoglobin measurement (mass/volume)Ordered By: Elvia Pineda on 08-14-2023 Hemoglobin (Bld) [Mass/Vol] 13.4 g/dL 13.0-16.5 [facility] Blood lymphocytes/100 leukoc ytesOrdered By: Elvia Pineda on 08-14-2023 Lymphocytes/100 WBC (Bld) 21.5 % 19-41 [facility] Blood monocytes/100 leukocyt esOrdered By: Elvia Pineda on 08-14-2023 Monocytes/100 WBC (Bld) 7.2 % 0-10 [facility] Blood platelet mean volumeOr dered By: Elvia Pineda on 08-14-2023 Platelet mean volume (Bld) [Entitic vol] 8.4 fL 6.2-12.0 [facility] Culture, urineOrdered By: Deepak Pineda on 08-14-2023 Bacteria identified Cx Nom (U) Culture exhibits no growth. [facility] Bacteria identified Cx Nom (U) Culture exhibits no growth. [facility] Determination of erythrocyte mean corpuscular volume (MCV)Ordered By: Elvia Pineda on 08-14-2023 MCV (RBC) [Entitic vol] 87.7 fL 80-94 [facility] Direct bilirubinOrdered By: Elvia Pineda on 08-14-2023 Bilirubin.direct [Mass/Vol] 0.31 mg/dL 0.00-0.30 [facility] Hematocrit Auto (Bld) [Volum e fraction]Ordered By: Elvia Pineda on 08-14-2023 Hematocrit (Bld) [Volume fraction] 40.7 % 40-54 [facility] INR in Blood by Coagulation assayOrdered By: Elvia Pineda on 08-14-2023 INR Coag (Bld) [Relative time] 0.9 {INR} [facility] Influenza virus A and B and SARS-CoV-2 (COVID-19) Ag panel - Upper respiratory specimOrdered By: Elvia Pineda on 08-14-2023 SARS-CoV-2 (COVID-19) RNA CHARLES+probe Ql (Resp) [facility] Ketones Test strip Ql (U)Ord ered By: Elvia Pineda on 08-14-2023 Ketones Ql (U) 5 mg/dl Negative [facility] Laboratory - Chemistry and C hemistry - challengeOrdered By: Elvia Pineda on 08-14-2023 ALP [Catalytic activity/Vol] 123 U/L 45-117 [facility] ALT [Catalytic activity/Vol] 30 U/L 16-61 [facility] CO2 [Moles/Vol] 28.0 mmol/L 21.0-32.0 [facility] Globulin (S) [Mass/Vol] 3.9 g/dL 2.2-4.2 [facility] Natriuretic peptide B (Bld) [Mass/Vol] 19.7 pg/mL 0-100 [facility] Urea nitrogen/Creatinine [Mass ratio] 19.7 mg/mg 10-20 [facility] Laboratory - CoagulationOrde red By: Elvia Pineda on 08-14-2023 aPTT Coag (Bld) [Time] 30.8 s 24.1-36.2 [facility] PT Coag (PPP) [Time] 12.4 s 11.7-14.9 [facility] - Hematology and Cell countsOrdered By: Elvia Pineda on 08-14-2023 Erythrocyte distribution width (RBC) [Entitic vol] 41.3 fL 35.1-43.9 [facility] Erythrocyte distribution width (RBC) [Ratio] 13.0 % 11.6-14.6 [facility] Immature granulocytes/100 WBC (Bld) 0.400 % 0.0-0.9 [facility] Comment on above: IG% - Immature Granu locytes (promyelocytes, myelocytes and metamyelocytes) > 1% indicates that a LEFT SHIFT is Present. MCH (RBC) [Entitic mass] 28.9 pg 27.0-32.0 [facility] Nucleated RBC/100 WBC (Bld) [Ratio] 0 % 0-5 [facility] - Microbiology an d Antimicrobial susceptibilityOrdered By: Elvia Pineda on 08-14-2023 Bacteria identified Cx Nom (Bld) No growth in 5 days. [facility] MCHC Auto (RBC) [Mass/Vol]Or dered By: Elvia Pineda on 08-14-2023 MCHC (RBC) [Mass/Vol] 32.9 g/dL 32-36 [facility] Mucus LM Ql (Urine sed)Order ed By: Elvia Pineda on 08-14-2023 Mucus Ql (Urine sed) 0 SEEN /hpf [facility] Nitrite Test strip Ql (U)Ord ered By: Elvia Pineda on 08-14-2023 Nitrite Ql (U) Negative Negative [facility] No Panel InformationOrdered By: Elvia Pineda on 08-14-2023 No growth in 5 days. [facility] D-Dimer Quantitative (PE/DVT) 0.84 FEU/ug/m 0.27-0.49 [facility] Comment on above: D-Dimer ELEVATED (>0 .49): Additional studies and clinicalassessments are indicated to conclude diagnosis of:Deep Vein Thrombosis (DVT) or Pulmonary Embolism (PE)CRITICAL VALUE VERIFIED. CALLED TO NAVEEN WILD08/14/23 1703 Starr Eubanks.RESULTS READ BACK BY SAME . Estimated Creatinine Clearance Calc 53.77 ml/min [facility] Estimated GFR (MDRD) Amer 69 mL/min >60 [facility] Comment on above: GFR Calc Estimated GFR (MDRD) Non-Af Amer 57 mL/min >60 [facility] Comment on above: Non- GFR Calc Troponin I High Sensitivity 7 pg/mL 3.0-78.0 [facility] Comment on above: Please Note: New [place] t Units and Gender Specific Reference Ranges. For more information see Policy Stat Procedure [place] High Sensitivity Troponin (TNIH) and attachments. 28.9 pg 27.0-32.0 [facility] 13.0 % 11.6-14.6 [facility] 41.3 fl 35.1-43.9 [facility] 0.400 % 0.0-0.9 [facility] 0 % 0-5 [facility] 12.4 SECONDS 11.7-14.9 [facility] 30.8 Seconds 24.1-36.2 [facility] 0.84 FEU/ug/m 0.27-0.49 [facility] 57 mL/min >60 [facility] 69 mL/min >60 [facility] 53.77 ml/min [facility] 19.7 RATIO 10-20 [facility] 3.9 g/dL 2.2-4.2 [facility] 7 pg/mL 3.0-78.0 [facility] 123 U/L 45-117 [facility] 30 U/L 16-61 [facility] 28.0 mmol/L 21.0-32.0 [facility] 19.7 pg/mL 0-100 [facility] Platelets bldOrdered By: Kezia Pineda on 08-14-2023 Platelets (Bld) [#/Vol] 298 10*3/uL 150-450 [facility] Protein Test strip Ql (U)Ord ered By: Elvia Pineda on 08-14-2023 Protein Ql (U) Negative Negative [facility] Serum or plasma albumin elver urement (mass/volume)Ordered By: Elvia Pineda on 08-14-2023 Albumin [Mass/Vol] 3.4 g/dL 3.2-5.0 [facility] Serum or plasma calcium elver urement (mass/volume)Ordered By: Elvia Pineda on 08-14-2023 Calcium [Mass/Vol] 9.4 mg/dL 8.5-10.1 [facility] Serum or plasma creatinine m easurement (mass/volume)Ordered By: Elvia Pineda on 08-14-2023 Creatinine [Mass/Vol] 1.32 mg/dL 0.70-1.30 [facility] Comment on above: The validity of the calculated GFR & GFRAA in patients over 70 years has not been determined. Clinical correlation is essential. Serum or plasma urea nitroge n measurement (mass/volume)Ordered By: Elvia Pineda on 08-14-2023 Urea nitrogen [Mass/Vol] 26 mg/dL 7-18 [facility] Squamous epithelial cells de tection in urine sediment by light microscopyOrdered By: Elvia Pineda on 08-14-2023 Epithelial cells.squamous LM Ql (Urine sed) 0 SEEN /hpf 0-5 [facility] Thin prep Papanicolaou smear with manual screeningOrdered By: Elvia Pineda on 08-14-2023 Thin prep Papanicolaou smear with manual screening 17 U/L 15-37 [facility] Thin prep Papanicolaou smear with manual screening 6 5-15 [facility] Upper respiratory specimen i nfluenza A virus, influenza B virus, and severe acute resOrdered By: Elvia Pineda on 08-14-2023 Upper respiratory specimen influenza A virus, influenza B virus, and severe acute res [facility] Upper respiratory specimen influenza A virus, influenza B virus, and severe acute res [facility] Urine blood detectionOrdered By: Elvia Pineda on 08-14-2023 RBC Ql (U) Negative Negative [facility] RBC Ql (U) 0 SEEN /hpf 0-5 [facility] Urine clarityOrdered By: Kezia Pineda on 08-14-2023 Clarity (U) Sl. Cloudy Clear [facility] Urine color determinationOrd ered By: Elvia Pineda on 08-14-2023 Color (U) Yellow Yellow [facility] Urine glucose detectionOrder ed By: Elvia Pineda on 08-14-2023 Glucose Ql (U) Normal mg/dl Normal [facility] Urine leukocyte esterase det ection by dipstickOrdered By: Elvia Pineda on 08-14-2023 Leukocyte esterase Test strip Ql (U) Negative Negative [facility] Urine pHOrdered By: Elvia Pineda on 08-14-2023 pH (U) 7.0 [pH] 5.0 - 8.0 [facility] Urine sediment bacteria coun t by microscopy (number/high power field)Ordered By: Elvia Pineda on 08-14-2023 Bacteria LM.HPF (Urine sed) [#/Area] 0 /[HPF] None Seen [facility] Urine specific gravity measu rementOrdered By: Elvia Pineda on 08-14-2023 Specific gravity (U) [Rel density] 1.015 1.002-1.030 [facility] Urobilinogen Auto test strip Ql (U)Ordered By: Elvia Pineda on 08-14-2023 Urobilinogen Ql (U) 4 mg/dl Normal [facility] Absolute lymphocyte countOrd ered By: Elvia Pineda on 08-04-2023 Lymphocytes Auto (Unsp spec) [#/Vol] 3.14 10*3/uL 0.83-4.51 [facility] Basophil percentageOrdered B y: Elvia Pineda on 08-04-2023 Basophil percentage 0 SEEN /hpf 0-5 [facility] Basophil percentage 204 mg/dL 74-106 [facility] Basophil percentage 137 mmol/L 136-145 [facility] Basophil percentage 4.0 mmol/L 3.5-5.1 [facility] Basophil percentage 104 mmol/L 98-107 [facility] Basophils (Bld) [#/Vol] 11.9 10*3/uL 4.4-11.0 [facility] Basophils (Bld) [#/Vol] 7.6 10*3/uL 2.0-7.7 [facility] Basophils/100 WBC (Bld) 0.7 % 0-1 [facility] Basophils/100 WBC (Bld) 63.6 % 47-70 [facility] Basophils/100 WBC (Bld) 1.5 % 0-5 [facility] Chloride [Moles/Vol] 104 mmol/L 98-107 [facility] Eosinophils/100 WBC (Bld) 1.5 % 0-5 [facility] Glucose [Mass/Vol] 204 mg/dL 74-106 [facility] Comment on above: Glucose result great er than or equal to 200 mg/dLsuggests DIABETES MELLITUS per A.D.A. criteria. Neutrophils (Bld) [#/Vol] 7.6 10*3/uL 2.0-7.7 [facility] Neutrophils/100 WBC (Bld) 63.6 % 47-70 [facility] Potassium [Moles/Vol] 4.0 mmol/L 3.5-5.1 [facility] Sodium [Moles/Vol] 137 mmol/L 136-145 [facility] WBC (Bld) [#/Vol] 11.9 10*3/uL 4.4-11.0 [facility] Bilirubin Test strip Ql (U)O rdered By: Elvia Pineda on 08-04-2023 Bilirubin Ql (U) Negative Negative [facility] Blood erythrocytes count (nu mber/volume)Ordered By: Elvia Pineda on 08-04-2023 RBC (Bld) [#/Vol] 4.80 10*6/uL 4.6-6.2 [facility] Blood hemoglobin measurement (mass/volume)Ordered By: Elvia Pineda on 08-04-2023 Hemoglobin (Bld) [Mass/Vol] 13.8 g/dL 13.0-16.5 [facility] Blood lymphocytes/100 leukoc ytesOrdered By: Elvia Pineda on 08-04-2023 Lymphocytes/100 WBC (Bld) 26.4 % 19-41 [facility] Blood monocytes/100 leukocyt esOrdered By: Elvia Pineda on 08-04-2023 Monocytes/100 WBC (Bld) 7.1 % 0-10 [facility] Blood platelet mean volumeOr dered By: Elvia Pineda on 08-04-2023 Platelet mean volume (Bld) [Entitic vol] 8.2 fL 6.2-12.0 [facility] Determination of erythrocyte mean corpuscular volume (MCV)Ordered By: Elvia Pineda on 08-04-2023 MCV (RBC) [Entitic vol] 89.0 fL 80-94 [facility] Erythrocyte sedimentation ra teOrdered By: Elvia Pineda on 08-04-2023 ESR (Bld) [Velocity] 20 mm/h 0-20 [facility] Hematocrit Auto (Bld) [Volum e fraction]Ordered By: Elvia Pineda on 08-04-2023 Hematocrit (Bld) [Volume fraction] 42.7 % 40-54 [facility] Ketones Test strip Ql (U)Ord ered By: Elvia Pineda on 08-04-2023 Ketones Ql (U) Negative Negative [facility] Laboratory - Chemistry and C hemistry - challengeOrdered By: Elvia Pineda on 08-04-2023 CO2 [Moles/Vol] 29.0 mmol/L 21.0-32.0 [facility] Urea nitrogen/Creatinine [Mass ratio] 24.7 mg/mg 10-20 [facility] - Hematology and Cell countsOrdered By: Elvia Pineda on 08-04-2023 Erythrocyte distribution width (RBC) [Entitic vol] 42.5 fL 35.1-43.9 [facility] Erythrocyte distribution width (RBC) [Ratio] 12.9 % 11.6-14.6 [facility] Immature granulocytes/100 WBC (Bld) 0.700 % 0.0-0.9 [facility] Comment on above: IG% - Immature Granu locytes (promyelocytes, myelocytes and metamyelocytes) > 1% indicates that a LEFT SHIFT is Present. MCH (RBC) [Entitic mass] 28.8 pg 27.0-32.0 [facility] Nucleated RBC/100 WBC (Bld) [Ratio] 0 % 0-5 [facility] MCHC Auto (RBC) [Mass/Vol]Or dered By: Elvia Pineda on 08-04-2023 MCHC (RBC) [Mass/Vol] 32.3 g/dL 32-36 [facility] Mucus LM Ql (Urine sed)Order ed By: Elvia Pineda on 08-04-2023 Mucus Ql (Urine sed) 0 SEEN /hpf [facility] Nitrite Test strip Ql (U)Ord ered By: Elvia Pineda on 08-04-2023 Nitrite Ql (U) Negative Negative [facility] No Panel InformationOrdered By: Elvia Pineda on 08-04-2023 Estimated Creatinine Clearance Calc 73.17 ml/min [facility] Estimated GFR (MDRD) Amer 98 mL/min >60 [facility] Comment on above: GFR Calc Estimated GFR (MDRD) Non-Af Amer 81 mL/min >60 [facility] Comment on above: Non- GFR Calc 28.8 pg 27.0-32.0 [facility] 12.9 % 11.6-14.6 [facility] 42.5 fl 35.1-43.9 [facility] 0.700 % 0.0-0.9 [facility] 0 % 0-5 [facility] 81 mL/min >60 [facility] 98 mL/min >60 [facility] 73.17 ml/min [facility] 24.7 RATIO 10-20 [facility] 29.0 mmol/L 21.0-32.0 [facility] Platelets bldOrdered By: Kezia Pineda on 08-04-2023 Platelets (Bld) [#/Vol] 356 10*3/uL 150-450 [facility] Protein Test strip Ql (U)Ord ered By: Elvia Pineda on 08-04-2023 Protein Ql (U) Negative Negative [facility] Serum or plasma C reactive p rotein measurement (mass/volume)Ordered By: Elvia Pineda on 08-04-2023 CRP [Mass/Vol] 19.00 mg/L 0.0-3.0 [facility] Comment on above: C-Reactive Protein ( CRP) provides useful information for thediagnosis, therapy and monitoring of inflammatory processesand associated diseases. For the evaluation of Relative Riskfor Cardiovascular Disease, a High Sensitivity CRP (HSCRP)should be ordered. Serum or plasma calcium elver urement (mass/volume)Ordered By: Elvia Pineda on 08-04-2023 Calcium [Mass/Vol] 9.8 mg/dL 8.5-10.1 [facility] Serum or plasma creatinine m easurement (mass/volume)Ordered By: Elvia Pineda on 08-04-2023 Creatinine [Mass/Vol] 0.97 mg/dL 0.70-1.30 [facility] Comment on above: The validity of the calculated GFR & GFRAA in patients over 70 years has not been determined. Clinical correlation is essential. Serum or plasma urea nitroge n measurement (mass/volume)Ordered By: Elvia Pineda on 08-04-2023 Urea nitrogen [Mass/Vol] 24 mg/dL 7-18 [facility] Squamous epithelial cells de tection in urine sediment by light microscopyOrdered By: Elvia Pineda on 08-04-2023 Epithelial cells.squamous LM Ql (Urine sed) 0 SEEN /hpf 0-5 [facility] Thin prep Papanicolaou smear with manual screeningOrdered By: Elvia Pineda on 08-04-2023 Thin prep Papanicolaou smear with manual screening 4 5-15 [facility] Urine blood detectionOrdered By: Elvia Pineda on 08-04-2023 RBC Ql (U) Negative Negative [facility] RBC Ql (U) 0 SEEN /hpf 0-5 [facility] Urine clarityOrdered By: Kezia Pineda on 08-04-2023 Clarity (U) Clear Clear [facility] Urine color determinationOrd ered By: Elvia Pineda on 08-04-2023 Color (U) Yellow Yellow [facility] Urine glucose detectionOrder ed By: Elvia Pineda on 08-04-2023 Glucose Ql (U) 100 mg/dl Normal [facility] Urine leukocyte esterase det ection by dipstickOrdered By: Elvia Pineda on 08-04-2023 Leukocyte esterase Test strip Ql (U) Negative Negative [facility] Urine pHOrdered By: Elvia Pineda on 08-04-2023 pH (U) 6.0 [pH] 5.0 - 8.0 [facility] Urine sediment bacteria coun t by microscopy (number/high power field)Ordered By: Elvia Pineda on 08-04-2023 Bacteria LM.HPF (Urine sed) [#/Area] 0 /[HPF] None Seen [facility] Urine specific gravity measu rementOrdered By: Elvia Pineda on 08-04-2023 Specific gravity (U) [Rel density] 1.010 1.002-1.030 [facility] Urobilinogen Auto test strip Ql (U)Ordered By: Elvia Pineda on 08-04-2023 Urobilinogen Ql (U) 1 mg/dl Normal [facility] Glucose Glucometer (BldC) [M ass/Vol]Ordered By: Ventura Godoy on 07-20-2023 Glucose [Mass/Vol] 134 mg/dL 74-106 [facility] Comment on above: MANAGEMENT OF PATIEN T CARE PER NURSING PROTOCOL Glucose [Mass/Vol] 129 mg/dL 74-106 [facility] Comment on above: MANAGEMENT OF PATIEN T CARE PER NURSING PROTOCOL Absolute lymphocyte countOrd ered By: Dimas Clinton on 07-19-2023 Lymphocytes Auto (Unsp spec) [#/Vol] 1.51 10*3/uL 0.83-4.51 [facility] Basophil percentageOrdered B y: Dimas Clinton on 07-19-2023 Basophil percentage 170 mg/dL 74-106 [facility] Basophil percentage 141 mmol/L 136-145 [facility] Basophil percentage 3.8 mmol/L 3.5-5.1 [facility] Basophil percentage 108 mmol/L 98-107 [facility] Basophils (Bld) [#/Vol] 11.1 10*3/uL 4.4-11.0 [facility] Basophils (Bld) [#/Vol] 8.6 10*3/uL 2.0-7.7 [facility] Basophils/100 WBC (Bld) 0.2 % 0-1 [facility] Basophils/100 WBC (Bld) 77.7 % 47-70 [facility] Basophils/100 WBC (Bld) 0.1 % 0-5 [facility] Chloride [Moles/Vol] 108 mmol/L 98-107 [facility] Eosinophils/100 WBC (Bld) 0.1 % 0-5 [facility] Glucose [Mass/Vol] 170 mg/dL 74-106 [facility] Comment on above: Fasting Glucose resu lt greater than or equal to 126 mg/dL suggests DIABETES MELLITUS per A.D.A. criteria. Neutrophils (Bld) [#/Vol] 8.6 10*3/uL 2.0-7.7 [facility] Neutrophils/100 WBC (Bld) 77.7 % 47-70 [facility] Potassium [Moles/Vol] 3.8 mmol/L 3.5-5.1 [facility] Sodium [Moles/Vol] 141 mmol/L 136-145 [facility] WBC (Bld) [#/Vol] 11.1 10*3/uL 4.4-11.0 [facility] Blood erythrocytes count (nu mber/volume)Ordered By: Dimas Clinton on 07-19-2023 RBC (Bld) [#/Vol] 4.32 10*6/uL 4.6-6.2 [facility] Blood hemoglobin measurement (mass/volume)Ordered By: Dimas Clinton on 07-19-2023 Hemoglobin (Bld) [Mass/Vol] 12.7 g/dL 13.0-16.5 [facility] Blood lymphocytes/100 leukoc ytesOrdered By: Dimas Clinton on 07-19-2023 Lymphocytes/100 WBC (Bld) 13.6 % 19-41 [facility] Blood monocytes/100 leukocyt esOrdered By: Dimas Clinton on 07-19-2023 Monocytes/100 WBC (Bld) 7.9 % 0-10 [facility] Blood platelet mean volumeOr dered By: Dimas Clinton on 07-19-2023 Platelet mean volume (Bld) [Entitic vol] 8.8 fL 6.2-12.0 [facility] Determination of erythrocyte mean corpuscular volume (MCV)Ordered By: Dimas Clinton on 07-19-2023 MCV (RBC) [Entitic vol] 89.6 fL 80-94 [facility] Hematocrit Auto (Bld) [Volum e fraction]Ordered By: Dimas Clinton on 07-19-2023 Hematocrit (Bld) [Volume fraction] 38.7 % 40-54 [facility] - Chemistry and C hemistry - challengeOrdered By: Dimas Clinton on 07-19-2023 CO2 [Moles/Vol] 28.0 mmol/L 21.0-32.0 [facility] Urea nitrogen/Creatinine [Mass ratio] 21.6 mg/mg 10-20 [facility] - Hematology and Cell countsOrdered By: Dimas Clinton on 07-19-2023 Erythrocyte distribution width (RBC) [Entitic vol] 43.0 fL 35.1-43.9 [facility] Erythrocyte distribution width (RBC) [Ratio] 13.2 % 11.6-14.6 [facility] Immature granulocytes/100 WBC (Bld) 0.500 % 0.0-0.9 [facility] Comment on above: IG% - Immature Granu locytes (promyelocytes, myelocytes and metamyelocytes) > 1% indicates that a LEFT SHIFT is Present. MCH (RBC) [Entitic mass] 29.4 pg 27.0-32.0 [facility] Nucleated RBC/100 WBC (Bld) [Ratio] 0 % 0-5 [facility] MCHC Auto (RBC) [Mass/Vol]Or dered By: Dimas Clinton on 07-19-2023 MCHC (RBC) [Mass/Vol] 32.8 g/dL 32-36 [facility] No Panel InformationOrdered By: Dimas Clinton on 07-19-2023 Estimated Creatinine Clearance Calc 76.31 ml/min [facility] Estimated GFR (MDRD) Amer 104 mL/min >60 [facility] Comment on above: GFR Calc Estimated GFR (MDRD) Non-Af Amer 86 mL/min >60 [facility] Comment on above: Non- GFR Calc 29.4 pg 27.0-32.0 [facility] 13.2 % 11.6-14.6 [facility] 43.0 fl 35.1-43.9 [facility] 0.500 % 0.0-0.9 [facility] 0 % 0-5 [facility] 86 mL/min >60 [facility] 104 mL/min >60 [facility] 76.31 ml/min [facility] 21.6 RATIO 10-20 [facility] 28.0 mmol/L 21.0-32.0 [facility] Platelets bldOrdered By: Shadi Clinton on 07-19-2023 Platelets (Bld) [#/Vol] 237 10*3/uL 150-450 [facility] Serum or plasma calcium elver urement (mass/volume)Ordered By: Dimas Clinton on 07-19-2023 Calcium [Mass/Vol] 8.8 mg/dL 8.5-10.1 [facility] Serum or plasma creatinine m easurement (mass/volume)Ordered By: Dimas Clinton on 07-19-2023 Creatinine [Mass/Vol] 0.93 mg/dL 0.70-1.30 [facility] Comment on above: The validity of the calculated GFR & GFRAA in patients over 70 years has not been determined. Clinical correlation is essential. Serum or plasma urea nitroge n measurement (mass/volume)Ordered By: Dimas Clinton on 07-19-2023 Urea nitrogen [Mass/Vol] 20 mg/dL 7-18 [facility] Thin prep Papanicolaou smear with manual screeningOrdered By: Dimas Clinton on 07-19-2023 Thin prep Papanicolaou smear with manual screening 5 5-15 [facility] HIV 1 and HIV-2 antibody ass ay with HIV-1 p24 antigen detectionOrdered By: Ventura Godoy on 07-05-2023 HIV 1+2 Ab+HIV1 p24 Ag IA Ql Non-Reactive Nonreactive [facility] - Chemistry and C hemistry - challengeOrdered By: Vin Orellana on 07-05-2023 Magnesium [Mass/Vol] 2.1 mg/dL 1.6-2.6 [facility] No Panel InformationOrdered By: Ventura Godoy on 07-05-2023 Hepatitis A Antibody Total Negative Negative [facility] Comment on above: Comment: The HAV tot al antibody assay detects both IgG andIgM but does not differentiate between them. A negativeresult suggests susceptibility to infection. A positiveresult could be due to vaccination, previously resolvedinfection or active infection. Testing for HAV IgM shouldbe performed if active HAV infection is suspected. [facility] profiles that will automatically reflex positive HAVtotal antibody results to IgM (e.g., panel #[id number] HAVAntibody w/ Rfx).Performed at: [facility] [id number] Director: Jerald Wakefield PhD, Phone: [phone] Hepatitis C Antibody Non-Reactive Nonreactive [facility] Comment on above: Non Reactive: < 0.8 Equivocal: >/= 0.8 to < 1.0 Reactive: >/= 1.0The CDC recommends that a reactive/equivocal HCV antibody result be followed up by the HCV Nucleic Acid Amplificationtest (744238) Nasal Screen MRSA/MSSA [facility] Negative Negative [facility] Non-Reactive Nonreactive [facility] No Panel InformationOrdered By: Vin Orellana on 07-05-2023 2.1 mg/dL 1.6-2.6 [facility] Serum hepatitis B virus surf selina antibody IgG detectionOrdered By: Ventura Godoy on 07-05-2023 HBV surface IgG Ql (S) Non-Reactive [facility] Comment on above: Non Reactive: Incons istent with immunity less than <10 mIU/mL Reactive: Consistent with immunity greater than or equal to 10 mIU/mL Whole blood hemoglobin A1c/t otal hemoglobin ratio (mass fraction)Ordered By: Vin Orellana on 07-05-2023 HbA1c (Bld) [Mass fraction] 6.7 % 3.8-5.6 [facility] Comment on above: Normal < 5.7 % Predi abetic 5.7 - 6.4 % Diabetic >or= 6.5 % Please note range changes. Culture, urineOrdered By: Paulo Lema on 05-20-2023 Bacteria identified Cx Nom (U) Culture exhibits no growth. [facility] Basophil percentageOrdered B y: Marshall Bear on 05-19-2023 Basophil percentage 0 SEEN /hpf 0-5 [facility] Bilirubin Test strip Ql (U)O rdered By: Marshall Bear on 05-19-2023 Bilirubin Ql (U) Negative Negative [facility] Culture, urineOrdered By: Paulo Lema on 05-19-2023 Bacteria identified Cx Nom (U) Culture exhibits no growth. [facility] Ketones Test strip Ql (U)Ord ered By: Marshall Bear on 05-19-2023 Ketones Ql (U) 5 mg/dl Negative [facility] Laboratory - Chemistry and C hemistry - challengeon 05-19-2023 Bilirubin Ql (U) Negative [facility] Glucose Ql (U) Negative [facility] Ketones Ql (U) Trace (5) [facility] pH (U) 6.5 [pH] [facility] Specific gravity (U) [Rel density] 1.010 [facility] Urobilinogen (U) [Mass/Vol] 0.3779759 mg/dL [facility] - Hematology and Cell countson 05-19-2023 Hemoglobin Ql (U) Negative [facility] - Specimen inform ationon 05-19-2023 Clarity (U) Cloudy [facility] Color (U) ORANGE [facility] Laboratory - Urinalysison Nitrite Ql (U) Negative [facility] Protein Ql (U) Negative [facility] Mucus LM Ql (Urine sed)Order ed By: Marshall Bear on 05-19-2023 Mucus Ql (Urine sed) 0 SEEN /hpf [facility] Nitrite Test strip Ql (U)Ord ered By: Marshall Bear on 05-19-2023 Nitrite Ql (U) Negative Negative [facility] No Panel Informationon 05-19 Urine Leukocytes Positive [facility] Urine Non-Hemolyzed Blood Negative [facility] Protein Test strip Ql (U)Ord ered By: Marshall Bear on 05-19-2023 Protein Ql (U) Negative Negative [facility] Squamous epithelial cells de tection in urine sediment by light microscopyOrdered By: Marshall Bear on 05-19-2023 Epithelial cells.squamous LM Ql (Urine sed) 0 SEEN /hpf 0-5 [facility] Urine blood detectionOrdered By: Marshall Bear on 05-19-2023 RBC Ql (U) Negative Negative [facility] RBC Ql (U) 0 SEEN /hpf 0-5 [facility] Urine clarityOrdered By: Kristen Bear on 05-19-2023 Clarity (U) Clear Clear [facility] Urine color determinationOrd ered By: Marshall Bear on 05-19-2023 Color (U) Yellow Yellow [facility] Urine glucose detectionOrder ed By: Marshall Bear on 05-19-2023 Glucose Ql (U) Normal mg/dl Normal [facility] Urine leukocyte esterase det ection by dipstickOrdered By: Marshall Bear on 05-19-2023 Leukocyte esterase Test strip Ql (U) Negative Negative [facility] Urine pHOrdered By: Marshall villalba on 05-19-2023 pH (U) 7.0 [pH] 5.0 - 8.0 [facility] Urine sediment bacteria coun t by microscopy (number/high power field)Ordered By: Marshall Bear on 05-19-2023 Bacteria LM.HPF (Urine sed) [#/Area] 0 /[HPF] None Seen [facility] Urine specific gravity measu rementOrdered By: Marshall Bear on 05-19-2023 Specific gravity (U) [Rel density] 1.010 1.002-1.030 [facility] Urobilinogen Auto test strip Ql (U)Ordered By: Marshall Bear on 05-19-2023 Urobilinogen Ql (U) Normal mg/dl Normal [facility] Glucose Glucometer (BldC) [M ass/Vol]Ordered By: Julio Garcia on 05-15-2023 Glucose [Mass/Vol] 165 mg/dL 74-106 [facility] Comment on above: MANAGEMENT OF PATIEN T CARE PER NURSING PROTOCOL Absolute lymphocyte countOrd ered By: Ryan Vásquez on 05-11-2023 Lymphocytes Auto (Unsp spec) [#/Vol] 2.23 10*3/uL 0.83-4.51 [facility] Basophil percentageOrdered B y: Ryan Vásquez on 05-11-2023 Basophil percentage 0 SEEN /hpf 0-5 [facility] Basophils/100 WBC (Bld) 0.8 % 0-1 [facility] Chloride [Moles/Vol] 101 mmol/L 98-107 [facility] Eosinophils/100 WBC (Bld) 2.0 % 0-5 [facility] Glucose [Mass/Vol] 120 mg/dL 74-106 [facility] Comment on above: Fasting Glucose resu lt from 100 to 125 mg/dL suggests IMPAIRED HOMEOSTASIS per A.D.A. criteria. Neutrophils (Bld) [#/Vol] 5.6 10*3/uL 2.0-7.7 [facility] Neutrophils/100 WBC (Bld) 61.9 % 47-70 [facility] Potassium [Moles/Vol] 3.8 mmol/L 3.5-5.1 [facility] Sodium [Moles/Vol] 135 mmol/L 136-145 [facility] WBC (Bld) [#/Vol] 9.1 10*3/uL 4.4-11.0 [facility] Bilirubin Test strip Ql (U)O rdered By: Ryan Vásquez on 05-11-2023 Bilirubin Ql (U) Negative Negative [facility] Blood erythrocytes count (nu mber/volume)Ordered By: Ryan Vásquez on 05-11-2023 RBC (Bld) [#/Vol] 5.29 10*6/uL 4.6-6.2 [facility] Blood hemoglobin measurement (mass/volume)Ordered By: Ryan Vásquez on 05-11-2023 Hemoglobin (Bld) [Mass/Vol] 15.3 g/dL 13.0-16.5 [facility] Blood lymphocytes/100 leukoc ytesOrdered By: Ryan Vásquez on 05-11-2023 Lymphocytes/100 WBC (Bld) 24.6 % 19-41 [facility] Blood monocytes/100 leukocyt esOrdered By: Ryan Vásquez on 05-11-2023 Monocytes/100 WBC (Bld) 10.4 % 0-10 [facility] Blood platelet mean volumeOr dered By: Ryan Vásquez on 05-11-2023 Platelet mean volume (Bld) [Entitic vol] 8.6 fL 6.2-12.0 [facility] Determination of erythrocyte mean corpuscular volume (MCV)Ordered By: Ryan Vásquez on 05-11-2023 MCV (RBC) [Entitic vol] 88.5 fL 80-94 [facility] Hematocrit Auto (Bld) [Volum e fraction]Ordered By: Ryan Vásquez on 05-11-2023 Hematocrit (Bld) [Volume fraction] 46.8 % 40-54 [facility] Ketones Test strip Ql (U)Ord ered By: Ryan Vásquez on 05-11-2023 Ketones Ql (U) Negative Negative [facility] Laboratory - Chemistry and C hemistry - challengeOrdered By: Ryan Vásquez on 05-11-2023 CO2 [Moles/Vol] 31.0 mmol/L 21.0-32.0 [facility] Urea nitrogen/Creatinine [Mass ratio] 17.7 mg/mg 10-20 [facility] Laboratory - Hematology and Cell countsOrdered By: Ryan Vásquez on 05-11-2023 Erythrocyte distribution width (RBC) [Entitic vol] 40.3 fL 35.1-43.9 [facility] Erythrocyte distribution width (RBC) [Ratio] 12.4 % 11.6-14.6 [facility] Immature granulocytes/100 WBC (Bld) 0.300 % 0.0-0.9 [facility] Comment on above: IG% - Immature Granu locytes (promyelocytes, myelocytes and metamyelocytes) > 1% indicates that a LEFT SHIFT is Present. MCH (RBC) [Entitic mass] 28.9 pg 27.0-32.0 [facility] Nucleated RBC/100 WBC (Bld) [Ratio] 0 % 0-5 [facility] MCHC Auto (RBC) [Mass/Vol]Or dered By: Ryan Vásquez on 05-11-2023 MCHC (RBC) [Mass/Vol] 32.7 g/dL 32-36 [facility] Mucus LM Ql (Urine sed)Order ed By: Ryan Vásquez on 05-11-2023 Mucus Ql (Urine sed) 0 SEEN /hpf [facility] Nitrite Test strip Ql (U)Ord ered By: Ryan Vásquez on 05-11-2023 Nitrite Ql (U) Negative Negative [facility] No Panel InformationOrdered By: Ryan Vásquez on 05-11-2023 Estimated Creatinine Clearance Calc 62.81 ml/min [facility] Estimated GFR (MDRD) Amer 83 mL/min >60 [facility] Comment on above: GFR Calc Estimated GFR (MDRD) Non-Af Amer 68 mL/min >60 [facility] Comment on above: Non- GFR Calc Platelets bldOrdered By: Yuan Vásquez on 05-11-2023 Platelets (Bld) [#/Vol] 286 10*3/uL 150-450 [facility] Protein Test strip Ql (U)Ord ered By: Ryan Vásquez on 05-11-2023 Protein Ql (U) Negative Negative [facility] Serum or plasma calcium elver urement (mass/volume)Ordered By: Ryan Vásquez on 05-11-2023 Calcium [Mass/Vol] 9.2 mg/dL 8.5-10.1 [facility] Serum or plasma creatinine m easurement (mass/volume)Ordered By: Ryan Vásquez on 05-11-2023 Creatinine [Mass/Vol] 1.13 mg/dL 0.70-1.30 [facility] Comment on above: The validity of the calculated GFR & GFRAA in patients over 70 years has not been determined. Clinical correlation is essential. Serum or plasma urea nitroge n measurement (mass/volume)Ordered By: Ryan Vásquez on 05-11-2023 Urea nitrogen [Mass/Vol] 20 mg/dL 7-18 [facility] Squamous epithelial cells de tection in urine sediment by light microscopyOrdered By: Ryan Vásquez on 05-11-2023 Epithelial cells.squamous LM Ql (Urine sed) 0 SEEN /hpf 0-5 [facility] Thin prep Papanicolaou smear with manual screeningOrdered By: Ryan Vásquez on 05-11-2023 Thin prep Papanicolaou smear with manual screening 3 5-15 [facility] Urine blood detectionOrdered By: Ryan Vásquez on 05-11-2023 RBC Ql (U) Negative Negative [facility] RBC Ql (U) 0 SEEN /hpf 0-5 [facility] Urine clarityOrdered By: Yuan Vásquez on 05-11-2023 Clarity (U) Sl. Cloudy Clear [facility] Urine color determinationOrd ered By: Ryan Vásquez on 05-11-2023 Color (U) Yellow Yellow [facility] Urine glucose detectionOrder ed By: Ryan Vásquez on 05-11-2023 Glucose Ql (U) Normal mg/dl Normal [facility] Urine leukocyte esterase det ection by dipstickOrdered By: Ryan Vásquez on 05-11-2023 Leukocyte esterase Test strip Ql (U) Negative Negative [facility] Urine pHOrdered By: Ryan ornelas on 05-11-2023 pH (U) 6.0 [pH] 5.0 - 8.0 [facility] Urine sediment bacteria coun t by microscopy (number/high power field)Ordered By: Ryan Vásquez on 05-11-2023 Bacteria LM.HPF (Urine sed) [#/Area] 0 /[HPF] None Seen [facility] Urine specific gravity measu rementOrdered By: Ryan Vásquez on 05-11-2023 Specific gravity (U) [Rel density] 1.005 1.002-1.030 [facility] Urobilinogen Auto test strip Ql (U)Ordered By: Ryan Vásquez on 05-11-2023 Urobilinogen Ql (U) Normal mg/dl Normal [facility] Basophil percentageOrdered B y: Reyna Mckeon on 03-21-2023 Creatinine [Mass/Vol] 1.0 mg/dL 0.70-1.30 [facility] No Panel InformationOrdered By: Reyna Mckeon on 03-21-2023 Bedside Estimated GFR (eGFR) > 60.0000 mL/min >60 [facility] CNOVon 11-18-2022 CNOV Office Visit (GENSWS ) -- JARET BATES ([id number]) 1955 M NFR Date Time Provider Department 11/18/22 9:30 AM EDILIA HUNTERS During your visit today, we recorded the following information about you: Temperature Pulse Blood pressure Weight 98 degrees 89/minute 140/78 96.6 kg Height 1.778 m Clara Lira RN 11/18/2022 9:21 AM Signed REVIEW OF SYSTEMS: General: The patient [...] last Mammogram screening? N/a Last Colonoscopy: 2022 MATIAS Martinez PA-C 11/22/2022 4:57 PM Signed FOLLOW UP VISIT - CHOLECYSTECTOMY NAME: Jaret Bates CLINIC NO.: [id number] DATE OF SERVICE: 11/18/2022 : 1955 REFERRING PHYSICIAN: Marshall Bear MD Jaret is a patient I am following for a complaint of right upper quadrant pain. Dr. Pena performed a laparoscopic cholecystectomy with intraoperative cholangiogram [...] ?C (98 ?F), height 177.8 cm (5' 10), weight 96.6 kg (213 lb), SpO2 95 [...] instructed to follow-up with me as needed. _ NERISSA Prescott PA-C 11/18/2022 10:01 AM Signed The following instructions are important for you related to your office visit today with the [facility] Surgeons. INSTRUCTIONS FOLLOWING YOU R (more content not included)... Normal [facility] Absolute lymphocyte countOrd ered By: Dr. Pineda on 11-14-2022 Lymphocytes Auto (Unsp spec) [#/Vol] 2.56 10*3/uL 0.83-4.51 [facility] Basophil percentageOrdered B y: Dr. Pineda on 11-14-2022 Basophil percentage 0 SEEN /hpf 0-5 [facility] Basophils/100 WBC (Bld) 0.6 % 0-1 [facility] Bilirubin [Mass/Vol] 1.60 mg/dL 0.20-1.00 [facility] Comment on above: For patients on eltr ombopag therapy, use of Dimension [place] TBIL is not recommended. Chloride [Moles/Vol] 99 mmol/L 98-107 [facility] Eosinophils/100 WBC (Bld) 1.8 % 0-5 [facility] Glucose [Mass/Vol] 118 mg/dL 74-106 [facility] Comment on above: Fasting Glucose resu lt from 100 to 125 mg/dL suggests IMPAIRED HOMEOSTASIS per A.D.A. criteria. Neutrophils (Bld) [#/Vol] 8.6 10*3/uL 2.0-7.7 [facility] Neutrophils/100 WBC (Bld) 69.2 % 47-70 [facility] Potassium [Moles/Vol] 3.4 mmol/L 3.5-5.1 [facility] Protein [Mass/Vol] 8.7 g/dL 6.4-8.2 [facility] Sodium [Moles/Vol] 137 mmol/L 136-145 [facility] WBC (Bld) [#/Vol] 12.4 10*3/uL 4.4-11.0 [facility] Bilirubin Test strip Ql (U)O rdered By: Dr. Pineda on 11-14-2022 Bilirubin Ql (U) Negative Negative [facility] Blood erythrocytes count (nu mber/volume)Ordered By: Dr. Pineda on 11-14-2022 RBC (Bld) [#/Vol] 5.44 10*6/uL 4.6-6.2 [facility] Blood hemoglobin measurement (mass/volume)Ordered By: Dr. Pineda on 11-14-2022 Hemoglobin (Bld) [Mass/Vol] 16.0 g/dL 13.0-16.5 [facility] Blood lymphocytes/100 leukoc ytesOrdered By: Dr. Pineda on 11-14-2022 Lymphocytes/100 WBC (Bld) 20.7 % 19-41 [facility] Blood monocytes/100 leukocyt esOrdered By: Dr. Pineda on 11-14-2022 Monocytes/100 WBC (Bld) 7.3 % 0-10 [facility] Blood platelet mean volumeOr dered By: Dr. Pineda on 11-14-2022 Platelet mean volume (Bld) [Entitic vol] 8.5 fL 6.2-12.0 [facility] CNPNon 11-14-2022 CNPN Telephone (WhisbiS) -- JARET BATES Jing ([id number]) 1955 M NFR Date Time Provider Department 11/14/22 JOSE JUAN PENA During your visit today, we recorded the following information about you: Carol Vega RN 11/14/2022 8:31 AM Signed Jaret's , Alethea, called. Jaret had laparoscopic cholecystectomy surgery on November 11. [...] of the pain. They use [facility] in [place]. Alethea also wanted us to know that they tried reaching out, over the weekend to the provider number that is on their discharge paperwork, but that number is to [facility] and the automatic wheel line operator refused to page Dr. Pena, stating that he does not work at their facility. I apologized to Alethea, stating that I would reach out and see who can update that paperwork and correct that error. MATIAS Winters LPN 11/14/2022 10:36 AM Signed Patient called back, patient is yelling in pain, advised patient to go to ER. Alethea asked if [facility] would treat patient, informed them yes they will however Dr Pena is not at that hospital and is doing surgeries in [place] today. voiced understanding. Alethea # [phone] Edilia Hunter PA-C 11/14/2022 10:39 AM Signed Yes, agree with urgent ED evaluation for severe abdominal pain Dayron Orozco LPN 11/14/2022 10:46 AM Signed Called patient back to updated. Alethea stated that she called 911 and ambulance was there. Carol Vega RN 11/14/2022 4:34 PM Signed Patient was evaluated at [facility] ER, CT scan of the abdomen and pelvis was completed. Diagnosed with back spasm. Carol Vega RN Allergies As of Date: 11/14/2022 Noted Allergy Reaction ADHESIVE TAPE (ROSINS) 10/15/2014 9 - Itching CONTRAST DYE 07/28/2009 Comments: possible FD AND C BLUE NO.1 07/28/2009 SERTRALINE 01/14/2004 Comments: zoloft, hot, elevated BP Date Reviewed: 11/11/2022 Reviewed by: Joni Crooks RN - Fully Assessed Reason for Visit: Post op complications [2636] Prescriptions as of 11/18/2022 - omeprazole (PRILOSEC) 40 mg capsule Take 1 capsule by mouth once daily. - sucralfate (CARAFATE) 1 gram tablet Take 1 tablet before meals and at bedtime as needed - linaclotide (LINZESS ORAL) Take 72 mcg by mouth once daily as needed. - Multivitamin capsule Take 1 capsule by mouth once daily. - traZODone (DESYREL) 50 mg tablet Take 1-2 tablets by mouth daily at bedtime. - metFORMIN (GLUCOPHAGE) 500 mg tablet Take 1 tablet by mouth twice daily with meals. - baclofen (LIORESAL) 10 mg tablet Take 10 mg by mouth three times daily as needed. - Blood-Glucose Meter (FREESTYLE LITE METER) monitoring kit Test blood sugar(s) one times daily. Dx: Type 2 DM - Controlled E11.9 Insulin: No - atorvastatin (LIPITOR) 80 mg tablet Take 1 tablet by mouth daily at bedtime. - Lancets lancets Test blood sugar(s) one times daily. Dx: Type 2 DM - Controlled E11.9 Insulin: No - blood sugar diagnostic (BLOOD GLUCOSE TEST) test strip Test blood sugar(s) one times daily. Dx: Type 2 DM - Controlled E11.9 Insulin: No - gabapentin (NEURONTIN) 300 mg capsule Take 1 capsule by mouth twice daily. Prescribed by pain management. - albuterol HFA (VENTOLIN HFA) 90 mcg/actuation inhaler Inhale 2 Puffs as instructed every 4 hours as needed for Wheezing/Shortness of Breath. - aspirin, enteric coated (ASPIRIN, ENTERIC COATED) 81 mg EC tablet Take 1 tablet by mouth once daily. Problem List As Of Date 11/14/2022 Noted Resolved CERVICAL DISC DISPLACMNT [M50.20] 12/10/2003 Fibromyalgia [M79.7] 12/10/2003 Generalized osteoarthritis [M15.9] 12/10/2003 Dysthymic disorder [F34.1] 07/17/2017 Rosacea [L71.9] Other hyperlipidemia [E78.49] COPD with chronic bronchitis (HCC) [J44.9] Other malaise and fatigue [R53.81, R53.83] 04/12/2016 Other specified disease of hair and hair follic* 11/04/2014 Headache(784.0) [R51] 10/30/2007 01/15/2018 Lumbosacral neuritis [M54.17] 07/28/2009 Diabetes mellitus [E11.9] 06/25/2010 09/04/2012 Constipation [K59.00] 06/28/2010 GERD (gastroesophageal reflux disease) [K21.9] 06/28/2010 07/17/2017 Hearing loss of both ears [H91.93] Pain in joint, shoulder region [M25.519] 04/06/2012 04/12/2016 Laboratory test [Z01.89] 07/16/2012 11/04/2014 CAD (coronary artery disease) [I25.10] 09/04/2012 Sore throat (viral) [J02.8, B97.89] 02/01/2014 11/04/2014 Tubular adenoma of colon [D12.6] 10/30/2014 Impaired fasting glucose [R73.01] 07/15/2016 Calculus of gallbladder without cholecystitis w* (more content not included)... Normal [facility] Determination of erythrocyte mean corpuscular volume (MCV)Ordered By: Dr. Pineda on 11-14-2022 MCV (RBC) [Entitic vol] 89.2 fL 80-94 [facility] Direct bilirubinOrdered By: Dr. Pineda on 11-14-2022 Bilirubin.direct [Mass/Vol] 0.32 mg/dL 0.00-0.30 [facility] Hematocrit Auto (Bld) [Volum e fraction]Ordered By: Dr. Pineda on 11-14-2022 Hematocrit (Bld) [Volume fraction] 48.5 % 40-54 [facility] Ketones Test strip Ql (U)Ord ered By: Dr. Pineda on 11-14-2022 Ketones Ql (U) Negative Negative [facility] Laboratory - Chemistry and C hemistry - challengeOrdered By: Dr. Pineda on 11-14-2022 ALP [Catalytic activity/Vol] 134 U/L 45-117 [facility] ALT [Catalytic activity/Vol] 32 U/L 16-61 [facility] CO2 [Moles/Vol] 33.0 mmol/L 21.0-32.0 [facility] Globulin (S) [Mass/Vol] 4.2 g/dL 2.2-4.2 [facility] Lipase [Catalytic activity/Vol] 101 U/L 73-393 [facility] Urea nitrogen/Creatinine [Mass ratio] 16.8 mg/mg 10-20 [facility] Laboratory - Hematology and Cell countsOrdered By: Dr. Pineda on 11-14-2022 Erythrocyte distribution width (RBC) [Entitic vol] 40.8 fL 35.1-43.9 [facility] Erythrocyte distribution width (RBC) [Ratio] 12.5 % 11.6-14.6 [facility] Immature granulocytes/100 WBC (Bld) 0.400 % 0.0-0.9 [facility] Comment on above: IG% - Immature Granu locytes (promyelocytes, myelocytes and metamyelocytes) > 1% indicates that a LEFT SHIFT is Present. MCH (RBC) [Entitic mass] 29.4 pg 27.0-32.0 [facility] Nucleated RBC/100 WBC (Bld) [Ratio] 0 % 0-5 [facility] MCHC Auto (RBC) [Mass/Vol]Or dered By: Dr. Pineda on 11-14-2022 MCHC (RBC) [Mass/Vol] 33.0 g/dL 32-36 [facility] Mucus LM Ql (Urine sed)Order ed By: Dr. Pineda on 11-14-2022 Mucus Ql (Urine sed) 0 SEEN /hpf [facility] Nitrite Test strip Ql (U)Ord ered By: Dr. Pineda on 11-14-2022 Nitrite Ql (U) Negative Negative [facility] No Panel InformationOrdered By: Dr. Pineda on 11-14-2022 Estimated Creatinine Clearance Calc 71.27 ml/min [facility] Estimated GFR (MDRD) Amer 94 mL/min >60 [facility] Comment on above: GFR Calc Estimated GFR (MDRD) Non-Af Amer 78 mL/min >60 [facility] Comment on above: Non- GFR Calc Platelets bldOrdered By: Dr. Pineda on 11-14-2022 Platelets (Bld) [#/Vol] 312 10*3/uL 150-450 [facility] Protein Test strip Ql (U)Ord ered By: Dr. Pineda on 11-14-2022 Protein Ql (U) Negative Negative [facility] Serum or plasma albumin elver urement (mass/volume)Ordered By: Dr. Pineda on 11-14-2022 Albumin [Mass/Vol] 4.5 g/dL 3.2-5.0 [facility] Serum or plasma calcium elver urement (mass/volume)Ordered By: Dr. Pineda on 11-14-2022 Calcium [Mass/Vol] 9.9 mg/dL 8.5-10.1 [facility] Serum or plasma creatinine m easurement (mass/volume)Ordered By: Dr. Pineda on 11-14-2022 Creatinine [Mass/Vol] 1.01 mg/dL 0.70-1.30 [facility] Comment on above: The validity of the calculated GFR & GFRAA in patients over 70 years has not been determined. Clinical correlation is essential. Serum or plasma urea nitroge n measurement (mass/volume)Ordered By: Dr. Pineda on 11-14-2022 Urea nitrogen [Mass/Vol] 17 mg/dL 7-18 [facility] Squamous epithelial cells de tection in urine sediment by light microscopyOrdered By: Dr. Pineda on 11-14-2022 Epithelial cells.squamous LM Ql (Urine sed) 0 SEEN /hpf 0-5 [facility] Thin prep Papanicolaou smear with manual screeningOrdered By: Dr. Pineda on 11-14-2022 Thin prep Papanicolaou smear with manual screening 19 U/L 15-37 [facility] Thin prep Papanicolaou smear with manual screening 5 5-15 [facility] Urine blood detectionOrdered By: Dr. Pineda on 11-14-2022 RBC Ql (U) Negative Negative [facility] RBC Ql (U) 0 SEEN /hpf 0-5 [facility] Urine clarityOrdered By: Dr. Pineda on 11-14-2022 Clarity (U) Clear Clear [facility] Urine color determinationOrd ered By: Dr. Pineda on 11-14-2022 Color (U) Yellow Yellow [facility] Urine glucose detectionOrder ed By: Dr. Pineda on 11-14-2022 Glucose Ql (U) Normal mg/dl Normal [facility] Urine leukocyte esterase det ection by dipstickOrdered By: Dr. Pineda on 11-14-2022 Leukocyte esterase Test strip Ql (U) Negative Negative [facility] Urine pHOrdered By: Dr. Endy vargas on 11-14-2022 pH (U) 7.0 [pH] 5.0 - 8.0 [facility] Urine sediment bacteria coun t by microscopy (number/high power field)Ordered By: Dr. Pineda on 11-14-2022 Bacteria LM.HPF (Urine sed) [#/Area] 0 /[HPF] None Seen [facility] Urine specific gravity measu rementOrdered By: Dr. Pineda on 11-14-2022 Specific gravity (U) [Rel density] 1.010 1.002-1.030 [facility] Urobilinogen Auto test strip Ql (U)Ordered By: Dr. Pineda on 11-14-2022 Urobilinogen Ql (U) Normal mg/dl Normal [facility] ANES POSTPROC EVALon 023 ANES POSTPROC EVAL HNO ID: [id number] Author: Evita Morillo MD Service: Anesthesiology Author Type: Anesthesiologist Type: Anesthesia Postprocedure Evaluation Filed: 11/11/2022 12:32 PM Note Text: POST ANESTHESIA EVALUATION NOTE : 1955 Procedure Summary Date: 11/11/22 Room / Location: [place] [address] [facility] An[facility]hesia Start: 945 Anesthesia Stop: 1121 Procedure: LAPAROSCOPIC CHOLECYSTECTOMY WITH GRAMS Diagnosis: Calculus of gallbladder without cholecystitis without obstruction RUQ pain (Calculus of gallbladder without cholecystitis without obstruction [K80.20]) (RUQ pain [R10.11]) Surgeons: Jose Juan Pena MD Responsible Provider: Evita Morillo MD Anesthesia Type: general ASA Status: 3 Anesthesia Type: general Airway Type: ETT Last Vitals Vitals Value Taken Time BP 167/83 11/11/22 1215 Temp 36.5 ?C (97.7 ?F) 11/11/22 1120 HR SpO2 83 11/11/22 1120 Resp 16 11/11/22 1225 SpO2 91 % 11/11/22 1225 Vitals shown include unvalidated device data. Post Anesthesia Patient Status Patient Evaluation: PACU. PACU/ICU Patient Condition: stable. Anticipated Disposition: phase 2 then home. Neurological Status: aware and responsive. Pulmonary Status: breathing comfortably on room air Airway Control: returned to baseline unsupported. Cardiovascular Status: stable. Pain Management: clinically adequate - multimodal analgesia pain management approach Postoperative Hydration: acceptable. Intraoperative Events: no significant anesthesia events Post Operative Nausea/Vomiting Status: no significant post operative nausea or vomiting Recommendation: continue current plan of care. Anesthesia Observations No Documentation SIGNATURE: Evita Morillo MD PATIENT NAME: Jaret Bates DATE: November 11, 2022 TIME: 12:32 PM CSN: [id number] [facility] ANES PRE-OPon 11-11-2022 ANES PRE-OP HNO ID: [id number] Author: Evita Morillo MD Service: Anesthesiology Author Type: Anesthesiologist Type: Anesthesia Preprocedure Evaluation Filed: 11/11/2022 8:08 AM Note Text: ANESTHESIOLOGY DAY OF SURGERY NOTE : 1955 Procedure Information Date/Time: 11/11/22903 Procedure: LAPAROSCOPIC CHOLECYSTECTOMY WITH GRAMS [facility]: Jose Juan Pena MD Estimated body mass index is 31.42 kg/m? as calculated from the following: Height as of this encounter: 177.8 cm (5' 10). Weight as of this encounter: 99.3 kg (219 lb). Most recent hematocrit and potassium results: Hematocrit Test sent to [facility]. 06/28/2018 Potassium Test sent to [facility]. 04/09/2019 Relevant Problems CARDIO (+) CAD (coronary artery disease) ENDO (+) Controlled type 2 diabetes mellitus without complication, without long-term current use of insulin (HCC) GI (+) Gastroesophageal reflux disease with esophagitis I - PHYSICAL EVALUATION AIRWAY Patient intubated: No. Tracheostomy tube not present Mallampati: II. TM distance: >3 FB. Neck ROM: full ROM without neurological symptoms. Mouth opening: adequate. Short neck: no. Thick neck: no DENTAL Dental findings: poor dentition and missing tooth/teeth. Additional exam findings: yes. CARDIOVASCULAR Rhythm: regular Murmur: murmur present. PULMONARY Breath sounds clear to auscultation. II - ANESTHESIA PLAN ASA Score: 3 Anesthetic Plan: general Airway type: ETT The patient is not a current smoker. NPO Status: adequate Anesthetic plan additional comments: OLMAN he says the cardiologists have not worked up the heart murmur but he was born with it CABG at [facility] . Beta Jey Monitoring Plan Monitoring plan: Standard ASA. Post Procedure Analgesic Plan Postoperative analgesic plan: parenteral or oral opioids and multimodal analgesia. Informed Consent Anesthetic risks, benefits, alternatives, personnel and consent discussed: yes. Patient / Responsible Alliance Party agrees to proceed: yes Patient / Surrogate agrees to blood products: yes DNR status not reviewed with patient and/or family prior to surgery. Significant changes in the patient condition since the History and Physical, not otherwise documented in primary service progress note: no. Potential Anesthesia issues that may suggest increased risk of complications or contraindication to planned procedure: none. Vitals Value Taken Time BP 145/76 11/11/22746 Pulse 63 11/11/22746 Resp 16 11/11/22746 Temp 36 ?C (96.8 ?F) 11/11/22746 SpO2 99 % 11/11/22746 Facility-Administered Medications as of 11/11/2022 Medication Dose Route Frequency - lidocaine (PF) 10 mg/mL (1 %) 1-2 mg injection (XYLOCAINE) 0.1-0.2 mL INTRADERMAL PRN - lactated ringers iv infusion 5-30 mL/hr INTRAVENOUS CONTINUOUS - NaCl 0.9% iv flush bag 20 mL INTRAVENOUS PRN - ceFAZolin iv piggyback 2 g in D5W (iso-osmotic) 100 mL (ANCEF) 2 g INTRAVENOUS Pre-Op Once - [COMPLETED] promethazine 12.5 mg tab(s) (PHENERGAN) 12.5 mg ORAL Pre-Op Once - [COMPLETED] acetaminophen 1,000 mg tab(s) (TYLENOL) 1,000 mg ORAL Pre-Op Once Outpatient Medications as of 11/11/2022 Medication Sig - omeprazole (PRILOSEC) 40 mg capsule Take 1 capsule by mouth once daily. - traZODone (DESYREL) 50 mg tablet Take 1-2 tablets by mouth daily at bedtime. - metFORMIN (GLUCOPHAGE) 500 mg tablet Take 1 tablet by mouth twice daily with meals. - baclofen (LIORESAL) 10 mg tablet Take 10 mg by mouth three times daily as needed. - atorvastatin (LIPITOR) 80 mg tablet Take 1 tablet by mouth daily at bedtime. - gabapentin (NEURONTIN) 300 mg capsule Take 1 capsule by mouth twice daily. Prescribed by pain management. - albuterol HFA (VENTOLIN HFA) 90 mcg/actuation inhaler Inhale 2 Puffs as instructed every 4 hours as needed for Wheezing/Shortness of Breath. - sucralfate (CARAFATE) 1 gram tablet Take 1 tablet before meals and at bedtime as needed - linaclotide (LINZESS ORAL) Take 72 mcg by mouth once daily as needed. - Multivitamin capsule Take 1 capsule by mouth once daily. - Blood-Glucose Meter (InflaRxYLE LITE METER) monitoring kit Test blood sugar(s) one times daily. Dx: Type 2 DM - Controlled E11.9 Insulin: No - Lancets lancets Test blood sugar(s) one times daily. Dx: Type 2 DM - Controlled E11.9 Insulin: No - blood sugar diagnostic (BLOOD GLUCOSE TEST) test strip Test blood sugar(s) one times daily. Dx: Type 2 DM - Controlled E11.9 Insulin: No - aspirin, enteric coated (ASPIRIN, ENTERIC COATED) 81 mg EC tablet Take 1 tablet by mouth once daily. I have interviewed and examined the patient. I have reviewed the medical record and/or the pre-anesthesia evaluation, pertinent labs, and test results. This contains updated information obtained within 48 hours of Surgery/Procedure. SIGNATURE: Evita Morillo MD PATIENT NAME: Jaret Bates RAE (more content not included)... [facility] BRIEF OP NOTon 11-11-2022 BRIEF OP NOT HNO ID: [id number] Author: Jose Juan Pena MD Service: General Surgery Author Type: Physician Type: Brief Op Note Filed: 11/11/2022 11:14 AM Note Text: BRIEF OPERATIVE NOTATION FOR SURGICAL PROCEDURE. Jaret Ch Paulo 1955 [id number] male LOG ID: [id number] Surgery/Procedure Date: 11/11/2022 Incision/Procedure Start Time: 10:12 AM Incision Close/Procedure End Time: 11:06 AM Surgeon(s)/Proceduralist(s ) and Furnace Mechanic(s): Surgeon(s) and Role: * Jose Juan Pena MD - Primary Physician Furnace Mechanic: Miriam Boyle PA-C REFERRING PHYSICIAN: Dr. Bear Outpatient DEPT: [facility] PROVIDER: Malachi POS: [id number] ANESTHESIA: General ASA CLASS: 3 - Severe DIAGNOSIS: symptomatic cholelithiasis, RUQ pain, PROCEDURE: LAPAROSCOPIC CHOLECYSTECTOMY WITH INTRAOPERATIVE CHOLEANGIOGRAM - [id number] IVF: 1000 EBL: 50 Specimens: gallbladder ADDITIONAL DIAGNOSES: FINDINGS: normal IOC COMPLICATIONS: None PMHx - PAST MEDICAL HISTORY Diagnosis Date Asthma CAD [...] 06/16/2017 Added automatically from request for surgery [id number] Impaired fasting glucose 07/15/2016 Myalgia and myositis, unspecified Other and unspecified hyperlipidemia Other forms of migraine Other malaise and fatigue Other specified disease of hair and hair follicles Rosacea Snoring Temporomandibular joint disorders, unspecified Tubular adenoma of colon 10/30/2014 Unspecified constipation 06/28/2010 COMORBIDITIES - None Post Op Occurrences - None Wound Classification - Clean Contaminated Operative note dictated in the dictation system. - [id number] Jose Juan Pena MD [facility] HISTORY PHYSICALon HISTORY PHYSICAL HNO ID: [id number] Author: Jose Juan Pena MD Service: General Surgery Author Type: Physician Type: HANDP Filed: 11/11/2022 9:09 AM Note Text: HISTORY AND PHYSICAL Jaret Bates 1955 REFERRING PHYSICIAN: Dr. Bear CHIEF COMPLAINT: Abdominal Pain HPI: Jaret is a 67 year old male with a complaint of abdominal pain.the patient was initially seen by Edilia Hunter in July 2022 for evaluation for screening colonoscopy. At that time she noted: The patient is a 67 year old male referred for endoscopy. Jaret notes a history of colon polyp and is due for surveillance colonoscopy. Patient denies any change in bowel habits, weight changes, blood in stools, black tarry stools or abdominal pain. Denies family history of colon issues. The patient notes no upper GI complaints. Jaret has undergone prior endoscopy. Last colonoscopy 06/20/[address] Pena under conscious sedation with removal of an adenomatous colon polyp, five year follow-up recommended. I was contacted by the patient's primary care physician Dr. Pedro that after being evaluated by Edilia Hunter the patient had an ER visit on [...] sensation SIGNIFICANT MEDICAL PROBLEMS: PAST MEDICAL HISTORY PAST MEDICAL HISTORY Diagnosis [...] 06/16/2017 Added automatically from request for surgery [id number] Impaired fasting glucose 07/15/2016 Myalgia and myositis, unspecified Other and unspecified hyperlipidemia Other forms of migraine Other malaise and fatigue Other specified disease of hair and hair follicles Rosacea Snoring Temporomandibular joint disorders, unspecified Tubular adenoma of colon 10/30/2014 Unspecified constipation 06/28/2010 OPERATIONS: PAST SURGICAL HISTORY PAST SURGICAL HISTORY Procedure Laterality Date ARTHROSCOPY [...] 1ST INGUN HRNA AGE 5 YRS/> REDUCIBLE 20 (more content not included)... Normal [facility] OPERATIVE NOon 11-11-2022 OPERATIVE NO HNO ID: [id number] Author: Jose Juan Pena MD Service: General Surgery Author Type: Physician Type: Operative Report Filed: 11/12/2022 8:28 AM Note Text: [facility] - Operative Report JARET BATES : 1955 AGE: 67. SEX: M PATIENT TYPE: A HOSP SVC: [facility] LOCATION: [facility] ATTENDING PHYSICIAN: Jose Juan Pena M.D. CSN NUMBER: [id number] DATE OF SURGERY/PROCEDURE: 11/11/2022 INCISION/PROCEDURE START TIME: 10:12 a.m. INCISION CLOSE/PROCEDURE END TIME: 11:06 a.m. PREOPERATIVE DIAGNOSIS: Symptomatic cholelithiasis, right upper quadrant pain. POSTOPERATIVE DIAGNOSIS: Symptomatic cholelithiasis, right upper quadrant pain, normal cholangiogram. SURGEON: Jose Juan Pena M.D. ONCOLOGY REGISTRAR: Miriam Boyle PA-C. SURGERY/PROCEDURE: Laparoscopic cholecystectomy with intraoperative cholangiogram. ANESTHESIA: General endotracheal. LOGIN ID: [id number] ANESTHESIOLOGIST: Dr. Morillo. ASA: 3. INTRAVENOUS FLUIDS: 1000 mL. ESTIMATED BLOOD LOSS: 50. URINE OUTPUT: No catheter. FINDINGS: As above. SPECIMENS: Gallbladder. DRAINS: None. COMPLICATIONS: None. DISPOSITION: Patient taken to PACU in stable condition. DESCRIPTION OF PROCEDURE: Sign-in was performed, verifying patient, site, procedure, position, critical nursing information, VTE, and antibiotic prophylaxis. The patient received 2 g of Ancef, had sequential compression device was placed. Following induction of general anesthetic, patient's abdomen was prepped and draped in usual fashion. Time-out was done, verifying patient, site, procedure, position. Local anesthetic was injected above the umbilicus, incision made dissecting the fascia. Two stay sutures were placed to the fascia and incision was made through the fascia and peritoneum under direct visualization. Vi trocar was inserted through a stay suture. Pneumoperitoneum to 13 mmHg was insufflated. Three 5 mm ports placed in a standard position. Visual inspection revealed some adhesions of the hepatic flexure to the anterior abdominal wall. These were taken down with electrocautery to prevent tension. There were also adhesions from the transverse mesocolon to the gallbladder. These were taken down bluntly and using electrocautery. Following this, the gallbladder was dissected upward outward and dissection was carried out in Calot triangle. As dissection was continued, a critical view of the neck of the gallbladder from the cystic duct with no signs of aberrant structures and the cystic artery were clearly identified. After this critical view was seen, 2 clips placed in the cystic artery proximally, 1 distally and cystic artery divided. A clip was placed in the gallbladder cystic duct and a partial ductotomy was made. Percutaneous cholangiocath was inserted with a clip. Intraoperative cholangiogram showed some cystic duct, filling the common bile duct, filling the secondary radicals and emptying into the duodenum without signs of obstruction. The catheter was removed from the cystic duct. Cystic duct divided. Gallbladder dissected free from gallbladder fossa, placed in Endobag and removed through the port site. 0 PDS ifuvyo-ci-khusv sutures placed on the supraumbilical port site defect. The gallbladder fossa checked for hemostasis. With good hemostasis, the area was aspirated clear. 5 ports were removed under direct visualization with no signs of bleeding. Pneumoperitoneum was released and all trocars were removed and the fascia secured. Skin was closed using 4-0 Monocryl subcu sutures. Steri-Strips and sterile dressing applied. Patient tolerated the procedure well, brought to recovery room in stable condition. Miriam Boyle was my 1st commercial escrow assistant. She assisted in visualization, retraction, and subcuticular closure. There were no surgeons or qualified residents available. Jose Juan Pena M.D. RG:[id number] /[id number] Normal [facility] SURGICAL PATHOLOGYon 023 CASE REPORT Normal [facility] Comment on above: Order Comment: Speci men Type: TISSUE SPECIMEN Ordering Facility: [facility] Address: [address] [place] [address] Result Comment: Surg ical Pathology Report Case: [id number] Authorizing Provider: Jose Juan Pena MD Collected: 11/11/2022 10:24 AM Ordering Location: [facility] Surgery Received: 11/11/2022 12:11 PM Pathologist: Bull Booth MD Specimen: [id number] Performed By: #### S #### [facility] CLIA [id number] [address] [place] [address] OF [facility] CLINICAL HISTORY Normal [facility] Comment on above: Order Comment: Speci sierra Type: TISSUE SPECIMEN Ordering Facility: [facility] Address: [address] [place] [address] Result Comment: Pre- op diagnosis: Calculus of gallbladder without cholecystitis without obstruction [K80.20] RUQ pain [R10.11] Performed By: #### S #### [facility] CLIA [id number] [address] [place] [address] FINAL DIAGNOSIS Normal [facility] Comment on above: Order Comment: Speci sierra Type: TISSUE SPECIMEN Ordering Facility: [facility] Address: [address] [place] [address] Result Comment: Gall bladder, cholecystectomy: -Chronic cholecystitis with cholelithiasis Performed By: #### S #### [facility] CLIA [id number] [address] [place] [address] STATES OF FINAL PERFORMING LAB Normal [facility] Comment on above: Order Comment: Samantha esquivel Type: TISSUE SPECIMEN Ordering Facility: [facility] Address: [address] [place] [address] Result Comment: Diag nostic interpretation performed at [facility], [address] [place] [address] CLIA# [id number] Railway Signalling Engineer: Fam Martinez M.D. Performed By: #### S #### [facility] CLIA [id number] [address] [place] [address] [place] GROSS DESCRIPTION A. GALLBLADDER Normal [facility] Comment on above: Order Comment: Samantha esquivel Type: TISSUE SPECIMEN Ordering Facility: [facility] Address: [address] [place] [address] Result Comment: Rece ived in formalin labeled as gallbladder is a 8.5 x 3.4 x 1.5 cm partially previously torn gallbladder. The serosal surface is pink-purple, smooth to ragged, and glistening. The cystic duct margin is removed and the specimen is opened to reveal a minimal amount of green viscous bile fluid. There is a 1.0 x 1.0 x 0.5 cm black, granular, and semi-hard calculus present. The cystic duct is not impacted. The mucosa is meredith-green, velvety, and trabecular. The wall thickness measures 0.2 cm. Water Project Engineer sections are submitted in one cassette. MELONY/MLLux November 11, 2022 4:36 PM Gross examination performed at [facility], [address] [place] [address] Performed By: #### S #### [facility] CLIA [id number] [address] [place] [address] OF Marco Antonio 11-09-2022 SONY Telephone ([employer]) -- PAULOJARET Jing ([id number]) 1955 M NFR Date Time Provider Department 11/09/22 NITISH NORRIS During your visit today, we recorded the following information about you: Nitish Norris APRN.CAGE LOADER 11/09/2022 6:19 AM Signed Please request most recent labs, especially A1c from PCP's office. And cardiac records, last OV from [facility]. DOS 11/11/2022 Araceli Davis LPN 11/09/2022 8:23 AM Signed Called and left message with Katerina at [facility] to return call. Callback number given. TORI Harrison LPN 11/09/2022 8:28 AM Signed Called and left message at Dr. Mathews office requesting patients most recent labs especially A1c to be faxed. Callback number and fax number given. TORI Harrison LPN 11/09/2022 8:58 AM Signed Received a call from [facility] stating Dr. Mckeon office has moved and new phone number is [phone]. I called Dr. Mckeon new office and spoke with Katrina. Requested labs especially A1c to be faxed, fax number given. TORI Harrison LPN 11/09/2022 9:27 AM Signed Received labs from Dr. Bear's office. Copy made for Nitish Norris CNP and original sent to [facility] through [employer]. TORI Harrison LPN 11/09/2022 9:31 AM Signed Called and spoke with Katerina at [facility], she will fax last office visit and cardiac records. TORI Harrison LPN 11/09/2022 2:18 PM Signed Received last office visit and cardiac testing from [facility]. Copy made for Nitish Norris CNP and original sent to [facility]. Araceli Davis LPN Allergies As of Date: 11/09/2022 Noted Allergy Reaction ADHESIVE TAPE (ROSINS) 10/15/2014 9 - Itching CONTRAST DYE 07/28/2009 Comments: possible FD AND C BLUE NO.1 07/28/2009 SERTRALINE 01/14/2004 Comments: zoloft, hot, elevated BP Date Reviewed: 11/04/2022 Reviewed by: Nitish Nroris APRN.CAGE LOADER - Fully Assessed Reason for Visit: Request Outside Medical Records [[id number]] Prescriptions as of 11/09/2022 - omeprazole (PRILOSEC) 40 mg capsule Take 1 capsule by mouth once daily. - sucralfate (CARAFATE) 1 gram tablet Take 1 tablet before meals and at bedtime as needed - linaclotide (LINZESS ORAL) Take 72 mcg by mouth once daily as needed. - Multivitamin capsule Take 1 capsule by mouth once daily. - traZODone (DESYREL) 50 mg tablet Take 1-2 tablets by mouth daily at bedtime. - metFORMIN (GLUCOPHAGE) 500 mg tablet Take 1 tablet by mouth twice daily with meals. - baclofen (LIORESAL) 10 mg tablet Take 10 mg by mouth three times daily as needed. - Blood-Glucose Meter (FREESTYLE LITE METER) monitoring kit Test blood sugar(s) one times daily. Dx: Type 2 DM - Controlled E11.9 Insulin: No - atorvastatin (LIPITOR) 80 mg tablet Take 1 tablet by mouth daily at bedtime. - Lancets lancets Test blood sugar(s) one times daily. Dx: Type 2 DM - Controlled E11.9 Insulin: No - blood sugar diagnostic (BLOOD GLUCOSE TEST) test strip Test blood sugar(s) one times daily. Dx: Type 2 DM - Controlled E11.9 Insulin: No - gabapentin (NEURONTIN) 300 mg capsule Take 1 capsule by mouth twice daily. Prescribed by pain management. - albuterol HFA (VENTOLIN HFA) 90 mcg/actuation inhaler Inhale 2 Puffs as instructed every 4 hours as needed for Wheezing/Shortness of Breath. - aspirin, enteric coated (ASPIRIN, ENTERIC COATED) 81 mg EC tablet Take 1 tablet by mouth once daily. Problem List As Of Date 11/09/2022 Noted Resolved CERVICAL DISC DISPLACMNT [M50.20] 12/10/2003 Fibromyalgia [M79.7] 12/10/2003 Generalized osteoarthritis [M15.9] 12/10/2003 Dysthymic disorder [F34.1] 07/17/2017 Rosacea [L71.9] Other hyperlipidemia [E78.49] COPD with chronic bronchitis (HCC) [J44.9] Other malaise and fatigue [R53.81, R53.83] 04/12/2016 Other specified disease of hair and hair follic* 11/04/2014 Headache(784.0) [R51] 10/30/2007 01/15/2018 Lumbosacral neuritis [M54.17] 07/28/2009 Diabetes mellitus [E11.9] 06/25/2010 09/04/2012 Constipation [K59.00] 06/28/2010 GERD (gastroesophageal reflux disease) [K21.9] 06/28/2010 07/17/2017 Hearing loss of both ears [H91.93] Pain in joint, shoulder region [M25.519] 04/06/2012 04/12/2016 Laboratory test [Z01.89] 07/16/2012 11/04/2014 CAD (coronary artery disease) [I25.10] 09/04/2012 Sore throat (viral) [J02.8, B97.89] 02/01/2014 11/04/2014 Tubular adenoma of colon [D12.6] 10/30/2014 Impaired fasting glucose [R73.01] 07/15/2016 Calculus of gallbladder without cholecystitis w*07/15/2016 01/15/2018 Gastroesophageal reflux disease with esophagiti*09/24/2016 Hemorrhoids, internal [K64.8] 06/16/2017 01/15/2018 Bright red rectal bleeding [K62.5] 06/16/2017 07/17/2017 History of colonic polyps [Z86.010] 06/16/2017 07/17/2017 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 Normal [facility] HISTORY PHYSICALon HISTORY PHYSICAL HNO ID: [id number] Author: Nitish Norris APRN.CAGE LOADER Service: ? Author Type: Nurse Practitioner Type: HANDP Filed: 11/09/2022 6:20 AM Note Text: HISTORY AND PHYSICAL EXAMINATION SERVICE DATE: 11/04/2022 SERVICE TIME: 6:17 AM PRIMARY CARE PHYSICIAN: Marshall Bear MD REASON FOR VISIT: Jaret Bates is a 67 year old male who is scheduled for Procedure(s): LAPAROSCOPIC CHOLECYSTECTOMY WITH GRAMS (N/A) at the request of Dr. Jose Juan Pena MD for consultation. My final recommendation will [...] PURPLE TOP) CHIEF COMPLAINT: Pre-op exam HPI: Jaret Bates is a 67 year old seen for PAC due to scheduled above surgery because of gallstones. 10/20/2022, Dr. Pena HPI: Jaret is a 67 year old male with a complaint of abdominal pain.the patient was initially seen by Edilia Hunter in July 2022 for evaluation for screening colonoscopy. At that time she noted: The patient is a 67 year old male referred for endoscopy. Jaret notes a history of colon polyp and is due for surveillance colonoscopy. Patient denies any change in bowel habits, weight changes, blood in stools, black tarry stools or abdominal pain. Denies family history of colon issues. The patient notes no upper GI complaints. Jaret has undergone prior endoscopy. Last colonoscopy 06/20/[address] Pena under conscious sedation with removal of an adenomatous colon polyp, five year follow-up recommended. I was contacted by the patient's primary care physician Dr. Pedro that after being evaluated by Edilia Hunter the patient had an ER visit on [...] fevers. Neurological: No history of TIA's, stroke, RETAIL AGENT tumor, impaired sensorium, hemiplegia, paraplegia or quadraplegia. No neurological symptoms or problems. Respiratory: Positive for: asthma and COPD. Negative for: pneumonia within 6 weeks, tobacco use, URI < 2 weeks and obstructive sleep apnea. Cardiovascular: Positive for: anticoagulation therapy (ASA), CAD, hyperlipidemia (on rx) and open heart surgery Negative for: arrhythmia, atrial fibrillation, chest pain, CHF, congenital heart defect, DVT/PE, hypertension, recent [place], murmur/valvular heart disease, PVD and valve surgery. GI: See HPI. Negative for: abdominal pain, dysphagia, GERD, hepatitis, irritable bowel syndrome, inflammatory bowel disease, liver disease, nausea, pancreatitis, vomiting and ETOH (more content not included)... Normal [facility] Laboratory - Hematology and Cell countson 10-27-2022 HbA1c (Bld) [Mass fraction] 6.2 % 4.2-6.3 [facility] CNOVon 10-20-2022 CNOV Office Visit ([facility] ) -- JARET BATES ([id number]) 1955 M NFR Date Time Provider Department 10/20/22 8:30 AM JOSE JUAN PENA During your visit today, we recorded the following information about you: Temperature Pulse Respiration Blood pressure 97.9 degrees 80/minute 12/minute 122/78 Weight Height 100.2 kg 1.778 m Jose Juan Pena MD 10/28/2022 6:18 AM Addendum HISTORY AND PHYSICAL Jaret Ch Paulo 1955 REFERRING PHYSICIAN: Dr. Bear CHIEF COMPLAINT: Abdominal Pain HPI: Jaret is a 67 year old male with a complaint of abdominal pain.the patient was initially seen by Edilia Hunter in July 2022 for evaluation for screening colonoscopy. At that time she noted: The patient is a 67 year old male referred for endoscopy. Jaret notes a history of colon polyp and is due for surveillance colonoscopy. Patient denies any change in bowel habits, weight changes, blood in stools, black tarry stools or abdominal pain. Denies family history of colon issues. The patient notes no upper GI complaints. Jaret has undergone prior endoscopy. Last colonoscopy 06/20/[address] Pena under conscious sedation with removal of an adenomatous colon polyp, five year follow-up recommended. I was contacted by the patient's primary care physician Dr. Pedro that after being evaluated by Edilia Hunter the patient had an ER visit on [...] 06/16/2017 Added automatically from request for surgery [id number] Impaired fasting glucose 07/15/2016 Myalgia and myositis, [...] HX HEMORRHOIDECTOMY NTRNL AND XTRNL 1 COLUMN/GROUP 2001 HERNIA REPAIR HX MEDELLIN FACETECTOMY AND FORAMOTOMY 1 VRT SGM LUMBAR 2013 NEUROPLASTY AND/TRANSPOS MEDIAN NRV CARPAL TUNNE Right 2000 Carpal tunnel decomp right NEUROPLASTY AN (more content not included)... Normal [facility] CNPNon 10-20-2022 CNPN Telephone ([facility]) -- JARET BATES ([id number]) 1955 M NFR Date Time Provider Department 10/20/22 JOSE JUAN PENA During your visit today, we recorded the following information about you: Dayron Orozco LPN 10/20/2022 9:41 AM Signed Called and spoke to [facility], [place] scan dept. Pushed image per Dr Pena request. Dayron Orozco LPN Allergies As of Date: 10/20/2022 Noted Allergy Reaction ADHESIVE TAPE (ROSINS) 10/15/2014 9 - Itching CONTRAST DYE 07/28/2009 Comments: possible FD AND C BLUE NO.1 07/28/2009 SERTRALINE 01/14/2004 Comments: zoloft, hot, elevated BP Date Reviewed: 10/20/2022 Reviewed by: Bessy Suárez LPN - Fully Assessed Reason for Visit: Results [95] Cmt: [facility] scan from [facility] Prescriptions as of 10/20/2022 - omeprazole (PRILOSEC) 40 mg capsule Take 1 capsule by mouth once daily. - sucralfate (CARAFATE) 1 gram tablet Take 1 tablet before meals and at bedtime as needed - naproxen-diphenhydrAMINE 220-25 mg tab Take 220 mg by mouth once daily as needed. - linaclotide (LINZESS ORAL) Take 72 mcg by mouth once daily as needed. - Multivitamin capsule Take 1 capsule by mouth once daily. - Ascorbic Acid (VITAMIN C) 100 mg tablet Take 100 mg by mouth once daily. - cholecalciferol, vitamin D3, 10 mcg (400 unit) cap Take 400 Units by mouth once daily. - traZODone (DESYREL) 50 mg tablet Take 1-2 tablets by mouth daily at bedtime. - metFORMIN (GLUCOPHAGE) 500 mg tablet Take 1 tablet by mouth twice daily with meals. - fluticasone (FLONASE) 50 mcg/actuation nasal spray Use 2 Sprays in each nostril once daily. - tamsulosin ER (FLOMAX) 0.4 mg cap Take 1 capsule by mouth daily at bedtime. - baclofen (LIORESAL) 10 mg tablet Take 10 mg by mouth three times daily as needed. - Blood-Glucose Meter (FREESTYLE LITE METER) monitoring kit Test blood sugar(s) one times daily. Dx: Type 2 DM - Controlled E11.9 Insulin: No - atorvastatin (LIPITOR) 80 mg tablet Take 1 tablet by mouth daily at bedtime. - calcium Carbonate 300 mg, 750mg, (TUMS) 300 mg (750 mg) chewable tablet Take 1 tablet by mouth as needed (heartburn). - Lancets lancets Test blood sugar(s) one times daily. Dx: Type 2 DM - Controlled E11.9 Insulin: No - blood sugar diagnostic (BLOOD GLUCOSE TEST) test strip Test blood sugar(s) one times daily. Dx: Type 2 DM - Controlled E11.9 Insulin: No - gabapentin (NEURONTIN) 300 mg capsule Take 1 capsule by mouth twice daily. Prescribed by pain management. - albuterol HFA (VENTOLIN HFA) 90 mcg/actuation inhaler Inhale 2 Puffs as instructed every 4 hours as needed for Wheezing/Shortness of Breath. - HYDROcodone-acetaminophen 5-325 mg per tablet Take 1 tablet by mouth every 6 hours as needed. - aspirin, enteric coated (ASPIRIN, ENTERIC COATED) 81 mg EC tablet Take 1 tablet by mouth once daily. Problem List As Of Date 10/20/2022 Noted Resolved CERVICAL DISC DISPLACMNT [M50.20] 12/10/2003 Fibromyalgia [M79.7] 12/10/2003 Generalized osteoarthritis [M15.9] 12/10/2003 Dysthymic disorder [F34.1] 07/17/2017 Rosacea [L71.9] Other hyperlipidemia [E78.49] COPD with chronic bronchitis (HCC) [J44.9] Other malaise and fatigue [R53.81, R53.83] 04/12/2016 Other specified disease of hair and hair follic* 11/04/2014 Headache(784.0) [R51] 10/30/2007 01/15/2018 Lumbosacral neuritis [M54.17] 07/28/2009 Diabetes mellitus [E11.9] 06/25/2010 09/04/2012 Constipation [K59.00] 06/28/2010 GERD (gastroesophageal reflux disease) [K21.9] 06/28/2010 07/17/2017 Hearing loss of both ears [H91.93] Pain in joint, shoulder region [M25.519] 04/06/2012 04/12/2016 Laboratory test [Z01.89] 07/16/2012 11/04/2014 CAD (coronary artery disease) [I25.10] 09/04/2012 Sore throat (viral) [J02.8, B97.89] 02/01/2014 11/04/2014 Tubular adenoma of colon [D12.6] 10/30/2014 Impaired fasting glucose [R73.01] 07/15/2016 Calculus of gallbladder without cholecystitis w*07/15/2016 01/15/2018 Gastroesophageal reflux disease with esophagiti*09/24/2016 Hemorrhoids, internal [K64.8] 06/16/2017 01/15/2018 Bright red rectal bleeding [K62.5] 06/16/2017 07/17/2017 History of colonic polyps [Z86.010] 06/16/2017 07/17/2017 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 Obesity, Class I, BMI 30-34.9 [E66.9] 01/15/2018 Controlled type 2 diabetes mellitus without com*07/17/2018 Encounter Status:Closed by DAYRON OROZCO on 10/20/22 Normal [facility] CNOVon 10-07-2022 CNOV Office Visit (GENSWS ) -- JARET BATES ([id number]) 1955 E[place] Evelina Date Time Provider Department 10/07/22 3:30 PM EDILIA HUNTER During your visit today, we recorded the following information about you: Temperature Pulse Blood pressure 97.9 degrees 82/minute 112/88 Edilia Hunter PA-C 10/13/2022 2:07 PM Signed FOLLOW UP VISIT - ENDOSCOPY NAME: Jaret Bates [facility] NO.: [id number] DATE OF SERVICE: 10/07/2022 : 1955 REFERRING PHYSICIAN: No primary care provider on file. Jaret is a patient I am following for colon polyps and need for surveillance colonoscopy. In interim since patient's consult visit, was seen by PCP and had EGD ordered for upper GI complaints . Dr. Pena performed upper and lower endoscopy on 09/27/22. [...] which included preparing to see the patient, [id number] patient care, completing clinical documentation, obtaining and/or reviewing separately obtained history, counseling and educating the patient/family/caregiver, independently interpreting results (not separately reported), and communicating results to the patient/family/caregiver. _ NERISSA Prescott PA-C 10/07/2022 4:02 PM Signed -Trial of carafate, in addition to PPI [...] office visit today with the [facility] General Surgeons. INSTRUCTIONS FOLLOWING A NORMAL [...] often cure these issues without needing other (more content not included)... Normal [facility] SURGICAL PATHOLOGYon 023 Case Report Surgical Pathology R eport Case: [id number] Authorizing Provider: Jose Juan Pena MD Collected: 09/27/2022 09:48 AM Ordering Location: Ambulatory Surgery Received: 09/27/2022 02:22 PM Pathologist: Francisco Arteaga MD, PhD Specimens: A) - JEJUNUM BIOPSY B) - ANTRUM (STOMACH) BIOPSY, Antral for H/H C) - ESOPHAGUS BIOPSY, Distal esophagus bx D) - ESOPHAGUS MID BIOPSY [facility] FINAL DIAGNOSIS A. Jejunum, biopsy: -Small bowel mucosa with no diagnostic abnormality. B. Antrum, biopsy: -Antral mucosa with reactive gastropathy. -No morphologic evidence of H. pylori on routine stain. C. Esophagus, distal, biopsy: -Squamous epithelium with no diagnostic abnormality. D. Esophagus, MID, biopsy: -Squamous epithelium with no diagnostic abnormality. [facility] Gross Description A. JEJUNUM BIOPSY Received in formalin is one piece of meredith, soft tissue measuring 0.5 x 0.4 x 0.2 cm. Totally submitted in one cassette. B. ANTRUM (STOMACH) BIOPSY Received in formalin is one piece of meredith, soft tissue measuring 0.5 x 0.3 x 0.2 cm. Totally submitted in one cassette. C. ESOPHAGUS BIOPSY Received in formalin is one piece of meredith, soft tissue measuring 0.5 x 0.2 x 0.1 cm. Totally submitted in one cassette. D. ESOPHAGUS MID BIOPSY Received in formalin is one piece of meredith, soft tissue measuring 0.3 x 0.3 x 0.2 cm. Totally submitted in one cassette. SS September 27, 2022 11:09 PM Gross examination performed at [facility], [address] [place], [place] [id number] [place] [address] Performing Lab Diagnostic interpret ation performed at [facility], [address] [facility] [address] CLIA# [id number] [employer] Signalling Engineer: Fam Martinez M.D. [facility] COLONOSCOPY SCREENINGon 09-14 [facility] EGD DIAGNOSTICon 09-27-2022 [facility] GLUCOSE, BLOOD (POC)on 09-27 Glucose [Mass/Vol] 131 mg/dL Abnormal 74 - 99 mg/dL [facility] Absolute lymphocyte countOrd ered By: Dr. Warner on 09-12-2022 Lymphocytes Auto (Unsp spec) [#/Vol] 1.78 10*3/uL 0.83-4.51 [facility] Basophil percentageOrdered B y: Dr. Warner on 09-12-2022 Lactate [Moles/Vol] 0.8 mmol/L 0.4-2.0 [facility] Basophil percentage 0 SEEN /hpf 0-5 [facility] Basophils/100 WBC (Bld) 0.7 % 0-1 [facility] Bilirubin [Mass/Vol] 1.30 mg/dL 0.20-1.00 [facility] Comment on above: For patients on eltr ombopag therapy, use of Dimension [place] TBIL is not recommended. Chloride [Moles/Vol] 108 mmol/L 98-107 [facility] Eosinophils/100 WBC (Bld) 2.7 % 0-5 [facility] Glucose [Mass/Vol] 110 mg/dL 74-106 [facility] Comment on above: Fasting Glucose resu lt from 100 to 125 mg/dL suggests IMPAIRED HOMEOSTASIS per A.D.A. criteria. Neutrophils (Bld) [#/Vol] 4.4 10*3/uL 2.0-7.7 [facility] Neutrophils/100 WBC (Bld) 62.5 % 47-70 [facility] Potassium [Moles/Vol] 4.2 mmol/L 3.5-5.1 [facility] Protein [Mass/Vol] 7.2 g/dL 6.4-8.2 [facility] Sodium [Moles/Vol] 140 mmol/L 136-145 [facility] WBC (Bld) [#/Vol] 7.1 10*3/uL 4.4-11.0 [facility] Bilirubin Test strip Ql (U)O rdered By: Dr. Warner on 09-12-2022 Bilirubin Ql (U) Negative Negative [facility] Blood erythrocytes count (nu mber/volume)Ordered By: Dr. Warner on 09-12-2022 RBC (Bld) [#/Vol] 4.82 10*6/uL 4.6-6.2 [facility] Blood hemoglobin measurement (mass/volume)Ordered By: Dr. Warner on 09-12-2022 Hemoglobin (Bld) [Mass/Vol] 14.1 g/dL 13.0-16.5 [facility] Blood lymphocytes/100 leukoc ytesOrdered By: Dr. Warner on 09-12-2022 Lymphocytes/100 WBC (Bld) 25.2 % 19-41 [facility] Blood monocytes/100 leukocyt esOrdered By: Dr. Warner on 09-12-2022 Monocytes/100 WBC (Bld) 8.6 % 0-10 [facility] Blood platelet mean volumeOr dered By: Dr. Warner on 09-12-2022 Platelet mean volume (Bld) [Entitic vol] 8.5 fL 6.2-12.0 [facility] Determination of erythrocyte mean corpuscular volume (MCV)Ordered By: Dr. Warner on 09-12-2022 MCV (RBC) [Entitic vol] 89.6 fL 80-94 [facility] Direct bilirubinOrdered By: Dr. Warner on 09-12-2022 Bilirubin.direct [Mass/Vol] 0.30 mg/dL 0.00-0.30 [facility] Hematocrit Auto (Bld) [Volum e fraction]Ordered By: Dr. Warner on 09-12-2022 Hematocrit (Bld) [Volume fraction] 43.2 % 40-54 [facility] Ketones Test strip Ql (U)Ord ered By: Dr. Warner on 09-12-2022 Ketones Ql (U) Negative Negative [facility] Laboratory - Chemistry and C hemistry - challengeOrdered By: Dr. Warner on 09-12-2022 ALP [Catalytic activity/Vol] 96 U/L 45-117 [facility] ALT [Catalytic activity/Vol] 29 U/L 16-61 [facility] CO2 [Moles/Vol] 27.0 mmol/L 21.0-32.0 [facility] Globulin (S) [Mass/Vol] 3.4 g/dL 2.2-4.2 [facility] Lipase [Catalytic activity/Vol] 123 U/L 73-393 [facility] Urea nitrogen/Creatinine [Mass ratio] 23.4 mg/mg 10-20 [facility] Laboratory - Hematology and Cell countsOrdered By: Dr. Warner on 09-12-2022 Erythrocyte distribution width (RBC) [Entitic vol] 41.9 fL 35.1-43.9 [facility] Erythrocyte distribution width (RBC) [Ratio] 12.7 % 11.6-14.6 [facility] Immature granulocytes/100 WBC (Bld) 0.300 % 0.0-0.9 [facility] Comment on above: IG% - Immature Granu locytes (promyelocytes, myelocytes and metamyelocytes) > 1% indicates that a LEFT SHIFT is Present. MCH (RBC) [Entitic mass] 29.3 pg 27.0-32.0 [facility] Nucleated RBC/100 WBC (Bld) [Ratio] 0 % 0-5 [facility] MCHC Auto (RBC) [Mass/Vol]Or dered By: Dr. Warner on 09-12-2022 MCHC (RBC) [Mass/Vol] 32.6 g/dL 32-36 [facility] Mucus LM Ql (Urine sed)Order ed By: Dr. Warner on 09-12-2022 Mucus Ql (Urine sed) 0 SEEN /hpf [facility] Nitrite Test strip Ql (U)Ord ered By: Dr. Warner on 09-12-2022 Nitrite Ql (U) Negative Negative [facility] No Panel InformationOrdered By: Dr. Warner on 09-12-2022 Estimated Creatinine Clearance Calc 84.69 ml/min [facility] Estimated GFR (MDRD) Amer 114 mL/min >60 [facility] Comment on above: GFR Calc Estimated GFR (MDRD) Non-Af Amer 95 mL/min >60 [facility] Comment on above: Non- GFR Calc Platelets bldOrdered By: Dr. Warner on 09-12-2022 Platelets (Bld) [#/Vol] 249 10*3/uL 150-450 [facility] Protein Test strip Ql (U)Ord ered By: Dr. Warner on 09-12-2022 Protein Ql (U) 15 mg/dl Negative [facility] Serum or plasma albumin elver urement (mass/volume)Ordered By: Dr. Warner on 09-12-2022 Albumin [Mass/Vol] 3.8 g/dL 3.2-5.0 [facility] Serum or plasma calcium elver urement (mass/volume)Ordered By: Dr. Warner on 09-12-2022 Calcium [Mass/Vol] 9.5 mg/dL 8.5-10.1 [facility] Serum or plasma creatinine m easurement (mass/volume)Ordered By: Dr. Warner on 09-12-2022 Creatinine [Mass/Vol] 0.85 mg/dL 0.70-1.30 [facility] Comment on above: The validity of the calculated GFR & GFRAA in patients over 70 years has not been determined. Clinical correlation is essential. Serum or plasma urea nitroge n measurement (mass/volume)Ordered By: Dr. Warner on 09-12-2022 Urea nitrogen [Mass/Vol] 20 mg/dL 7-18 [facility] Squamous epithelial cells de tection in urine sediment by light microscopyOrdered By: Dr. Warner on 09-12-2022 Epithelial cells.squamous LM Ql (Urine sed) 0 SEEN /hpf 0-5 [facility] Thin prep Papanicolaou smear with manual screeningOrdered By: Dr. Warner on 09-12-2022 Thin prep Papanicolaou smear with manual screening 21 U/L 15-37 [facility] Thin prep Papanicolaou smear with manual screening 5 5-15 [facility] Urine blood detectionOrdered By: Dr. Warner on 09-12-2022 RBC Ql (U) Negative Negative [facility] RBC Ql (U) 0 SEEN /hpf 0-5 [facility] Urine clarityOrdered By: Dr. Warner on 09-12-2022 Clarity (U) Clear Clear [facility] Urine color determinationOrd ered By: Dr. Warner on 09-12-2022 Color (U) Yellow Yellow [facility] Urine glucose detectionOrder ed By: Dr. Warner on 09-12-2022 Glucose Ql (U) Normal mg/dl Normal [facility] Urine leukocyte esterase det ection by dipstickOrdered By: Dr. Warner on 09-12-2022 Leukocyte esterase Test strip Ql (U) Negative Negative [facility] Urine pHOrdered By: Dr. Christina sotomayor on 09-12-2022 pH (U) 5.0 [pH] 5.0 - 8.0 [facility] Urine sediment bacteria coun t by microscopy (number/high power field)Ordered By: Dr. Warner on 09-12-2022 Bacteria LM.HPF (Urine sed) [#/Area] 0 /[HPF] None Seen [facility] Urine specific gravity measu rementOrdered By: Dr. Warner on 09-12-2022 Specific gravity (U) [Rel density] 1.020 1.002-1.030 [facility] Urobilinogen Auto test strip Ql (U)Ordered By: Dr. Warner on 09-12-2022 Urobilinogen Ql (U) Normal mg/dl Normal [facility] Glucose Glucometer (BldC) [M ass/Vol]Ordered By: Dr. Garcia on 06-20-2022 Glucose [Mass/Vol] 120 mg/dL 74-106 [facility] Comment on above: MANAGEMENT OF PATIEN T CARE PER NURSING PROTOCOL Absolute lymphocyte counton 04-21-2022 Lymphocytes Auto (Unsp spec) [#/Vol] 1.70 10*3/uL 0.83-4.51 [facility] Work Phone: Basophil percentageon 2021 Basophils/100 WBC (Bld) 0.6 % 0-1 [facility] Work Phone: Bilirubin [Mass/Vol] 0.80 mg/dL 0.20-1.00 [facility] Work Phone: Comment on above: For patients on eltr ombopag therapy, use of Dim[place] TBIL is not recommended. Chloride [Moles/Vol] 106 mmol/L 98-107 [facility] Work Phone: [phone] Cholesterol [Mass/Vol] 184 mg/dL <200 [facility] Work Phone: Comment on above: <200 mg/dL Desirable 200-240 mg/dL Borderline >240 mg/dL High Risk Eosinophils/100 WBC (Bld) 4.4 % 0-5 [facility] Work Phone: [phone] Glucose [Mass/Vol] 114 mg/dL 74-106 [facility] Work Phone: [phone] Comment on above: Fasting Glucose resu lt from 100 to 125 mg/dL suggests IMPAIRED HOMEOSTASIS per A.D.A. criteria. Neutrophils (Bld) [#/Vol] 4.1 10*3/uL 2.0-7.7 [facility] Work Phone: [phone] Neutrophils/100 WBC (Bld) 60.4 % 47-70 [facility] Work Phone: [phone] Potassium [Moles/Vol] 4.7 mmol/L 3.5-5.1 [facility] Work Phone: [phone] Protein [Mass/Vol] 7.2 g/dL 6.4-8.2 [facility] Work Phone: [phone] Sodium [Moles/Vol] 139 mmol/L 136-145 [facility] Work Phone: Triglyceride [Mass/Vol] 50 mg/dL <199 [facility] Work Phone: Comment on above: The drugs N-Acetylcy steine and Metamizole may falsely depress this assay.Serum Triglycerides Reference Interval Normal <150 mg/dL Borderline high 150 - 199 mg/dL High 200 - 499 mg/dL Very High > or = 500 mg/dL WBC (Bld) [#/Vol] 6.8 10*3/uL 4.4-11.0 [facility] Work Phone: Blood erythrocytes count (nu mber/volume)on 04-21-2022 RBC (Bld) [#/Vol] 4.59 10*6/uL 4.6-6.2 [facility] Work Phone: Blood hemoglobin measurement (mass/volume)on 04-21-2022 Hemoglobin (Bld) [Mass/Vol] 13.8 g/dL 13.0-16.5 [facility] Work Phone: Blood lymphocytes/100 leukoc yteson 04-21-2022 Lymphocytes/100 WBC (Bld) 25.1 % 19-41 [facility] Work Phone: Blood monocytes/100 leukocyt eson 04-21-2022 Monocytes/100 WBC (Bld) 9.4 % 0-10 [facility] Work Phone: Blood platelet mean volumeon 04-21-2022 Platelet mean volume (Bld) [Entitic vol] 8.5 fL 6.2-12.0 [facility] Work Phone: [phone] Determination of erythrocyte mean corpuscular volume (MCV)on 04-21-2022 MCV (RBC) [Entitic vol] 90.2 fL 80-94 [facility] Work Phone: [phone] Direct bilirubinon Bilirubin.direct [Mass/Vol] 0.17 mg/dL 0.00-0.30 [facility] Work Phone: [phone] Hematocrit Auto (Bld) [Volum e fraction]on 04-21-2022 Hematocrit (Bld) [Volume fraction] 41.4 % 40-54 [facility] Work Phone: [phone] Laboratory - Chemistry and C hemistry - challengeon 04-21-2022 ALP [Catalytic activity/Vol] 100 U/L 45-117 [facility] Work Phone: ALT [Catalytic activity/Vol] 31 U/L 16-61 [facility] Work Phone: [phone] CO2 [Moles/Vol] 26.0 mmol/L 21.0-32.0 [facility] Work Phone: [phone] Globulin (S) [Mass/Vol] 3.5 g/dL 2.2-4.2 [facility] Work Phone: [phone] Urea nitrogen/Creatinine [Mass ratio] 23.1 mg/mg 10-20 [facility] Work Phone: Laboratory - Hematology and Cell countson 04-21-2022 Erythrocyte distribution width (RBC) [Entitic vol] 43.8 fL 35.1-43.9 [facility] Work Phone: Erythrocyte distribution width (RBC) [Ratio] 13.3 % 11.6-14.6 [facility] Work Phone: Immature granulocytes/100 WBC (Bld) 0.100 % 0.0-0.9 [facility] Work Phone: Comment on above: IG% - Immature Granu locytes (promyelocytes, myelocytes and metamyelocytes) > 1% indicates that a LEFT SHIFT is Present. MCH (RBC) [Entitic mass] 30.1 pg 27.0-32.0 [facility] Work Phone: Nucleated RBC/100 WBC (Bld) [Ratio] 0 % 0-5 [facility] Work Phone: MCHC Auto (RBC) [Mass/Vol]on 04-21-2022 MCHC (RBC) [Mass/Vol] 33.3 g/dL 32-36 [facility] Work Phone: No Panel Informationon 04-21 Estimated GFR (MDRD) Amer 101 mL/min >60 [facility] Work Phone: Comment on above: GFR Calc Estimated GFR (MDRD) Non-Af Amer 83 mL/min >60 [facility] Work Phone: Comment on above: Non- GFR Calc Thyroid Stimulating Hormone (TSH) 2.99 uIU/mL 0.358-3.74 [facility] Work Phone: Vitamin D 25-Hydroxy 38.8 ng/mL [facility] Work Phone: Comment on above: Vitamin D 25(OH) Sta tus Range Deficiency <20 ng/mL (50nmol/L) Insufficiency 20 - 30 ng/mL (50 - 75 nmol/L) Sufficiency 30 - 100 ng/mL (75 - 250 nmol/L) Toxicity >100 ng/mL (>250 nmol/L) Platelets bldon 04-21-2022 Platelets (Bld) [#/Vol] 261 10*3/uL 150-450 [facility] Work Phone: Serum or plasma albumin elver urement (mass/volume)on 04-21-2022 Albumin [Mass/Vol] 3.7 g/dL 3.2-5.0 [facility] Work Phone: Serum or plasma albumin/glob ulin mass ratioon 04-21-2022 Albumin/Globulin [Mass ratio] 1.1 {ratio} 0.9-2.4 [facility] Work Phone: Serum or plasma calcium elver urement (mass/volume)on 04-21-2022 Calcium [Mass/Vol] 9.2 mg/dL 8.5-10.1 [facility] Work Phone: Serum or plasma cholesterol in HDL measurement (mass/volume)on 04-21-2022 Cholesterol in HDL [Mass/Vol] 59 mg/dL >40 [facility] Work Phone: Comment on above: The drugs N-Acetylcy steine and Metamizole may falsely depress this assay. Reference Range HDL <40 mg/dL Low HDL Cholesterol HDL >or= 60 mg/dL High HDL Cholesterol Serum or plasma cholesterol in VLDL measurement (mass/volume)on 04-21-2022 Cholesterol in VLDL [Mass/Vol] 10 mg/dL 5-40 [facility] Work Phone: Serum or plasma creatinine m easurement (mass/volume)on 04-21-2022 Creatinine [Mass/Vol] 0.95 mg/dL 0.70-1.30 [facility] Work Phone: Comment on above: The validity of the calculated GFR & GFRAA in patients over 70 years has not been determined. Clinical correlation is essential. Serum or plasma low density lipoprotein (LDL) cholesterol measurement (mass/volume)on 04-21-2022 Cholesterol in LDL [Mass/Vol] 115 mg/dL 0-130 [facility] Work Phone: Serum or plasma urea nitroge n measurement (mass/volume)on 04-21-2022 Urea nitrogen [Mass/Vol] 22 mg/dL 7-18 [facility] Work Phone: Thin prep Papanicolaou smear with manual screeningon 04-21-2022 Thin prep Papanicolaou smear with manual screening 21 U/L 15-37 [facility] Work Phone: Thin prep Papanicolaou smear with manual screening 7 5-15 [facility] Work Phone: Whole blood hemoglobin A1c/t otal hemoglobin ratio (mass fraction)on 04-21-2022 HbA1c (Bld) [Mass fraction] 6.7 % 3.8-5.6 [facility] Work Phone: Comment on above: Normal < 5.7 % Predi abetic 5.7 - 6.4 % Diabetic >or= 6.5 % Please note range changes. Basophil percentageon 2021 Basophil percentage 0 SEEN /hpf 0-5 [facility] Work Phone: Bilirubin Test strip Ql (U)o n 03-24-2022 Bilirubin Ql (U) Negative Negative [facility] Work Phone: Ketones Test strip Ql (U)on 03-24-2022 Ketones Ql (U) Negative Negative [facility] Work Phone: Mucus LM Ql (Urine sed)on Mucus Ql (Urine sed) 0 SEEN /hpf [facility] Work Phone: Nitrite Test strip Ql (U)on 03-24-2022 Nitrite Ql (U) Negative Negative [facility] Work Phone: Protein Test strip Ql (U)on 03-24-2022 Protein Ql (U) Negative Negative [facility] Work Phone: Squamous epithelial cells de tection in urine sediment by light microscopyon 03-24-2022 Epithelial cells.squamous LM Ql (Urine sed) 0-5 SEEN /hpf 0-5 [facility] Work Phone: Urine blood detectionon 03-14 RBC Ql (U) Negative Negative [facility] Work Phone: RBC Ql (U) 0 SEEN /hpf 0-5 [facility] Work Phone: Urine clarityon 03-24-2022 Clarity (U) Clear Clear [facility] Work Phone: Urine color determinationon 03-24-2022 Color (U) Yellow Yellow [facility] Work Phone: Urine glucose detectionon Glucose Ql (U) Normal mg/dl Normal [facility] Work Phone: Urine leukocyte esterase det ection by dipstickon 03-24-2022 Leukocyte esterase Test strip Ql (U) Negative Negative [facility] Work Phone: Urine pHon 03-24-2022 pH (U) 6.0 [pH] 5.0 - 8.0 [facility] Work Phone: Urine sediment bacteria coun t by microscopy (number/high power field)on 03-24-2022 Bacteria LM.HPF (Urine sed) [#/Area] 0 /[HPF] None Seen [facility] Work Phone: Urine specific gravity measu rementon 03-24-2022 Specific gravity (U) [Rel density] 1.015 1.002-1.030 [facility] Work Phone: Urobilinogen Auto test strip Ql (U)on 03-24-2022 Urobilinogen Ql (U) Normal mg/dl Normal [facility] Work Phone: No Panel Informationon 03-22 POC SARS CoV-2 Antigen Positive [facility] Work Phone: Glucose Glucometer (BldC) [M ass/Vol]on 03-01-2022 Glucose [Mass/Vol] 107 mg/dL 74-106 [facility] Work Phone: Comment on above: MANAGEMENT OF PATIEN T CARE PER NURSING PROTOCOL Basophil percentageon 2021 Bilirubin [Mass/Vol] 1.00 mg/dL 0.20-1.00 [facility] Work Phone: Comment on above: For patients on eltr ombopag therapy, use of Dim[place] TBIL is not recommended. Cholesterol [Mass/Vol] 258 mg/dL <200 [facility] Work Phone: Comment on above: <200 mg/dL Desirable 200-240 mg/dL Borderline >240 mg/dL High Risk Protein [Mass/Vol] 6.8 g/dL 6.4-8.2 [facility] Work Phone: Triglyceride [Mass/Vol] 113 mg/dL <199 [facility] Work Phone: Comment on above: The drugs N-Acetylcy steine and Metamizole may falsely depress this assay.Serum Triglycerides Reference Interval Normal <150 mg/dL Borderline high 150 - 199 mg/dL High 200 - 499 mg/dL Very High > or = 500 mg/dL Direct bilirubinon 2 Bilirubin.direct [Mass/Vol] 0.19 mg/dL 0.00-0.30 [facility] Work Phone: Laboratory - Chemistry and C hemistry - challengeon 11-15-2021 ALP [Catalytic activity/Vol] 92 U/L 45-117 [facility] Work Phone: ALT [Catalytic activity/Vol] 34 U/L 16-61 [facility] Work Phone: Globulin (S) [Mass/Vol] 3.0 g/dL 2.2-4.2 [facility] Work Phone: Serum or plasma albumin elver urement (mass/volume)on 11-15-2021 Albumin [Mass/Vol] 3.8 g/dL 3.2-5.0 [facility] Work Phone: Serum or plasma cholesterol in HDL measurement (mass/volume)on 11-15-2021 Cholesterol in HDL [Mass/Vol] 44 mg/dL >40 [facility] Work Phone: Comment on above: The drugs N-Acetylcy steine and Metamizole may falsely depress this assay. Reference Range HDL <40 mg/dL Low HDL Cholesterol HDL >or= 60 mg/dL High HDL Cholesterol Serum or plasma cholesterol in VLDL measurement (mass/volume)on 11-15-2021 Cholesterol in VLDL [Mass/Vol] 23 mg/dL 5-40 [facility] Work Phone: Serum or plasma low density lipoprotein (LDL) cholesterol measurement (mass/volume)on 11-15-2021 Cholesterol in LDL [Mass/Vol] 191 mg/dL 0-130 [facility] Work Phone: [phone] Thin prep Papanicolaou smear with manual screeningon 11-15-2021 Thin prep Papanicolaou smear with manual screening 23 U/L 15-37 [facility] Work Phone: Absolute lymphocyte counton 10-04-2021 Lymphocytes Auto (Unsp spec) [#/Vol] 2.41 10*3/uL 0.83-4.51 [facility] Work Phone: [phone] Basophil percentageon 2021 Basophils/100 WBC (Bld) 0.7 % 0-1 [facility] Work Phone: Bilirubin [Mass/Vol] 1.10 mg/dL 0.20-1.00 [facility] Work Phone: [phone] Comment on above: For patients on eltr ombopag therapy, use of Dim[place] TBIL is not recommended. Chloride [Moles/Vol] 104 mmol/L 98-107 [facility] Work Phone: Eosinophils/100 WBC (Bld) 2.7 % 0-5 [facility] Work Phone: Glucose [Mass/Vol] 91 mg/dL 74-106 [facility] Work Phone: Neutrophils (Bld) [#/Vol] 3.8 10*3/uL 2.0-7.7 [facility] Work Phone: Neutrophils/100 WBC (Bld) 53.8 % 47-70 [facility] Work Phone: [phone] Potassium [Moles/Vol] 4.0 mmol/L 3.5-5.1 [facility] Work Phone: Protein [Mass/Vol] 7.5 g/dL 6.4-8.2 [facility] Work Phone: Sodium [Moles/Vol] 137 mmol/L 136-145 [facility] Work Phone: WBC (Bld) [#/Vol] 7.1 10*3/uL 4.4-11.0 [facility] Work Phone: Blood erythrocytes count (nu mber/volume)on 10-04-2021 RBC (Bld) [#/Vol] 4.81 10*6/uL 4.6-6.2 [facility] Work Phone: [phone] Blood hemoglobin measurement (mass/volume)on 10-04-2021 Hemoglobin (Bld) [Mass/Vol] 14.2 g/dL 13.0-16.5 [facility] Work Phone: Blood lymphocytes/100 leukoc yteson 10-04-2021 Lymphocytes/100 WBC (Bld) 34.0 % 19-41 [facility] Work Phone: Blood monocytes/100 leukocyt eson 10-04-2021 Monocytes/100 WBC (Bld) 8.7 % 0-10 [facility] Work Phone: Blood platelet mean volumeon 10-04-2021 Platelet mean volume (Bld) [Entitic vol] 8.9 fL 6.2-12.0 [facility] Work Phone: [phone] Determination of erythrocyte mean corpuscular volume (MCV)on 10-04-2021 MCV (RBC) [Entitic vol] 90.4 fL 80-94 [facility] Work Phone: [phone] Hematocrit Auto (Bld) [Volum e fraction]on 10-04-2021 Hematocrit (Bld) [Volume fraction] 43.5 % 40-54 [facility] Work Phone: [phone] Laboratory - Chemistry and C hemistry - challengeon 10-04-2021 ALP [Catalytic activity/Vol] 106 U/L 45-117 [facility] Work Phone: [phone] ALT [Catalytic activity/Vol] 33 U/L 16-61 [facility] Work Phone: [phone] CO2 [Moles/Vol] 27.0 mmol/L 21.0-32.0 [facility] Work Phone: [phone] Globulin (S) [Mass/Vol] 3.2 g/dL 2.2-4.2 [facility] Work Phone: [phone] Urea nitrogen/Creatinine [Mass ratio] 23.5 mg/mg 10-20 [facility] Work Phone: [phone] Laboratory - Hematology and Cell countson 10-04-2021 Erythrocyte distribution width (RBC) [Entitic vol] 44.0 fL 35.1-43.9 [facility] Work Phone: [phone] Erythrocyte distribution width (RBC) [Ratio] 13.2 % 11.6-14.6 [facility] Work Phone: [phone] Immature granulocytes/100 WBC (Bld) 0.100 % 0.0-0.9 [facility] Work Phone: Comment on above: IG% - Immature Granu locytes (promyelocytes, myelocytes and metamyelocytes) > 1% indicates that a LEFT SHIFT is Present. MCH (RBC) [Entitic mass] 29.5 pg 27.0-32.0 [facility] Work Phone: Nucleated RBC/100 WBC (Bld) [Ratio] 0 % 0-5 [facility] Work Phone: [phone] MCHC Auto (RBC) [Mass/Vol]on 10-04-2021 MCHC (RBC) [Mass/Vol] 32.6 g/dL 32-36 [facility] Work [facility]: No Panel Informationon 10-04 Estimated GFR (MDRD) Amer 103 mL/min >60 [facility] Work Phone: Comment on above: GFR Calc Estimated GFR (MDRD) Non-Af Amer 85 mL/min >60 [facility] Work Phone: Comment on above: Non- GFR Calc Prostate Specific Antigen Total 1.13 ng/mL 0.0-4.0 [facility] Work Phone: Comment on above: This test was perfor med using the TPSA assay method for theRotaPost chemistry system. Values obtained with differentassay methods cannot be used interchangably.When changing PSA assays in the course of monitoring apatient, additional sequential testing should be carriedout to confirm baseline values. Platelets bldon 10-04-2021 Platelets (Bld) [#/Vol] 284 10*3/uL 150-450 [facility] Work Phone: Serum or plasma albumin elver urement (mass/volume)on 10-04-2021 Albumin [Mass/Vol] 4.3 g/dL 3.2-5.0 [facility] Work Phone: Serum or plasma albumin/glob ulin mass ratioon 10-04-2021 Albumin/Globulin [Mass ratio] 1.3 {ratio} 0.9-2.4 [facility] Work Phone: Serum or plasma calcium elver urement (mass/volume)on 10-04-2021 Calcium [Mass/Vol] 9.3 mg/dL 8.5-10.1 [facility] Work Phone: Serum or plasma creatinine m easurement (mass/volume)on 10-04-2021 Creatinine [Mass/Vol] 0.94 mg/dL 0.70-1.30 [facility] Work Phone: Comment on above: The validity of the calculated GFR & GFRAA in patients over 70 years has not been determined. Clinical correlation is essential. Serum or plasma urea nitroge n measurement (mass/volume)on 10-04-2021 Urea nitrogen [Mass/Vol] 22 mg/dL 7-18 [facility] Work Phone: Thin prep Papanicolaou smear with manual screeningon 10-04-2021 Thin prep Papanicolaou smear with manual screening 20 U/L 15-37 [facility] Work Phone: Thin prep Papanicolaou smear with manual screening 6 5-15 [facility] Work Phone: Laboratory - Microbiology an d Antimicrobial susceptibilityon 08-10-2021 SARS-CoV-2 (COVID-19) RNA CHARLES+probe Ql (Unsp spec) Not detected Not Detect [facility] Work Phone: Comment on above: Normal Reference Ran ge: Not DetectedMethod:(RT-PCR) real-time reverse transcriptase PCRLuminex YFN Instrument*The Food and Drug Administration (FDA) has issued an Emergency Use Authorization (EAU) for the YFN SARS-CoV-2 Assay for the rapid detection of the virus that causes COVID-19. This test has been validated, but the FDAs independent review of this validation is pending.*Negative results do not preclude infection and should not be used as the sole basis for treatment or patient management. Optimum specimen types and timing for peak viral levels during infections caused by SARS-CoV-2 have not been determined. Collection of multiple specimens from the same patient may be necessary to detect the virus. The possibility of a false negative result should be considered if the patient has clinical presentation or has had recent exposure. No Panel Informationon 08-10 Influenza Types A,B Direct FA (ROBERT) [facility] Work Phone: Laboratory - Microbiology an d Antimicrobial susceptibilityon 07-29-2021 SARS-CoV-2 (COVID-19) RNA CHARLES+probe Ql (Unsp spec) Not detected Not Detect [facility] Work Phone: Comment on above: Normal Reference Ran ge: Not DetectedMethod:(RT-PCR) real-time reverse transcriptase PCRLuminex YFN Instrument*The Food and Drug Administration (FDA) has issued an Emergency Use Authorization (EAU) for the YFN SARS-CoV-2 Assay for the rapid detection of the virus that causes COVID-19. This test has been validated, but the FDAs independent review of this validation is pending.*Negative results do not preclude infection and should not be used as the sole basis for treatment or patient management. Optimum specimen types and timing for peak viral levels during infections caused by SARS-CoV-2 have not been determined. Collection of multiple specimens from the same patient may be necessary to detect the virus. The possibility of a false negative result should be considered if the patient has clinical presentation or has had recent exposure. No Panel Informationon 07-29 Influenza Types A,B Direct FA ([facility]) [facility] Work Phone: CNOVon 09-19-2017 CNOV Office Visit (AGCARDWST) JARET BATES ([id number]) 1955 [facility] Provider Department09/19/17 9:00 AM LOPEZ COHEN AGCARDWST During your visit today, we recorded the following information about you: Pulse Blood pressure Weight Height 73/minute 120/84 109.2 kg 1.778 Anthony Cohen MD 09/19/2017 4:48 PM SignedPERTINENT CARDIAC HISTORYAHSD - CABGx3 2012HTNHLADHERENCE TO GUIDELINESACE-I or ARB for HF with prior LVEFANDlt;40 (NQF 0081) - N/AASA or Plavix for ASHD (NQF 0067) - metBeta jey for ASHD with prior [place] or prior LVEFANDlt;40 (NQF 0070) - N/ABeta jey for HF with prior LVEFANDlt;40 (NQF 0083) - N/AACE-I or ARB for ASHD with DM or prior LVEFANDlt;40 (NQF 0066) - N/AStatin therapy for ASHD or FHL or DM - metBMI documented and plan if ANDgt;25 (NQF 0421) - lifestyle recommendation formTobacco use screening and referral (NQF 0028) - lifestyle recommendation formRecommendation for whole food, plant based diet - lifestyle recommendation formCLINICAL IMPRESSION/PLAN:Jaret Bates has exercise intolerance which is unexplained. This may be anischemic equivalent. I recommended that he undergo non-imaging stress testevaluation. This will be arranged for him in the near future.Labs are reviewed. His LDL is not to goal. Plant based, whole food diet isrecommended.I have asked him to continue his current medication. His blood pressure hasbeen borderline low and he is relatively intolerant of Selina inhibitors. He willcontinue his high-dose statin and aspirin.He will be seen on a to be arranged basis. If there is increased shortness ofbreath or if he develops exertional chest discomfort, I have encouraged him tocontact me promptly.Written and verbal health teaching given to patient, patient verbalizesunderstanding and agrees with treatment plan.This note was generated using Personalis voice recognition system, and there may besome incorrect words, spellings, and punctuation that were not noted inchecking the note before saving.DIAGNOSIS FOR VISIT:ASHDHypertensionExer cise intoleranceHISTORY OF PRESENT ILLNESSJaret Bates returns for follow-up of his coronary artery disease.He has had occasional brief, sharp anterior chest pain. This is not related toactivity. He has used no nitroglycerin. He had a recent rectal bleed which hasresolved.He reports decreased exercise tolerance. He is more short of breath withmoderate activity. He denies edema. He's had no syncope, TIAs, amaurosis orclaudication. He has had rare palpitations. He has not been as active thiswinter.ALLERGIES:ALLER GIESAllergen Reactions- Adhesive Tape (Maria Eugenia* Itching- Contrast Dye possible- Cortisone edema, erythema-?not sure of drug name- Fd And C Blue No.1- Sertraline zoloft, hot, elevated BPCURRENT OUTPATIENT MEDICATIONS:multivitamin tablet Take 1 tablet by mouth once daily.tamsulosin ER (FLOMAX) 0.4 mg cp24 Take 1 capsule by mouth daily at bedtime.naproxen sodium (ALEVE) 220 mg tablet Take 2 tablets by mouth once daily. TAKEWITH FOODatorvastatin (LIPITOR) 80 mg tablet Take 1 tablet by mouth daily at bedtime.venlafaxine ER (EFFEXOR XR) 75 mg 24 hr capsule Take 2 capsules by mouth oncedaily.pantoprazole DR (PROTONIX) 40 mg tablet Take 1 tablet by mouth daily beforebreakfast. Take on empty stomach, 1/2 hr before meal.traZODone (DESYREL) 50 mg tablet TAKE ONE TO TWO TABLETS BY MOUTH AT BEDTIME ASNEEDED FOR SEDATIONalbuterol HFA (VENTOLIN HFA) 90 mcg/actuation inhaler Inhale 2 Puffs asinstructed every 4 hours as needed for Wheezing/Shortness of Breath.gabapentin (NEURONTIN) 300 mg capsule Take 1 capsule by mouth three timesdaily.HYDROcodone-selina taminophen 5-325 mg per tablet Take 1 tablet by mouth every 6hours as needed.cyclobenzaprine (FLEXERIL) 10 mg tablet Take 1 tablet by mouth every 8 hours asneeded. FOR PAIN OR SPASMSaspirin, enteric coated (ASPIR-81) 81 mg EC tablet Take 1 tablet by mouth oncedaily.fluticasone (FLONASE) 50 mcg/actuation nasal spray Use 2 Sprays in each nostrilonce daily.PAST MEDICAL HISTORYDiagnosis Date- Asthma- CAD (coronary artery disease) 09/04/2012- Calculus of gallbladder without cholecystitis without obstruction 07/15/2016- Chronic airway obstruction, not elsewhere classified- Diaphragmatic hernia without mention of obstruction or gangrene Hiatal hernia- Displacement of cervical intervertebral disc without myelopathy 12/10/2003- Dysthymic disorder Depression (non-psychotic)- Generalized osteoarthrosis, unspecified site- GERD (gastroesophageal reflux disease) 06/28/2010- Hearing loss of both ears Wears hearing aids - bilateral- Hemorrhoids, internal 06/16/2017 Added automatically from request for surgery [id number]- Impaired fasting glucose 07/15/2016- Myalgia and myositis, unspecified- Other and unspecified hyperlipidemia- Other forms of migraine- Other malaise and fatigue- Other specified disease of hair and hair follicles- Rosacea- Snoring- Temporomandibular joint disorders, unspecified- Tubular adenoma of colon 10/30/2014- Unspecified constipation 06/28/2010PAST SURGICAL HISTORYProcedure Laterality Date- CABG (3) VEIN GRAFTS ANDamp; ARTERIAL GRAFT(S) 09/2011 Triple bypass- COLONOS W/REM POLYP SNARE 10/07/14 3 polyps - 2 proximal transverse, 1 distal transverse- COLONOSCOP W/ OR W/O BRSH SPEC 07/06/10 Normal- COLONOSCOP W/ OR W/O BRSH SPEC 06/20/2017 Colonoscopy- EGD W/O BRSH SPECIMEN W/BX 07/06/10 gastritis- EGD W/O [facility] SPECIMEN W/BX 10/07/14 duodenitis, gastritis, esophagitis- EGD W/O [facility] SPECIMEN W/BX 09/13/2016 continued inflammation- HEMORRHOIDECT INTER/EXTER SIMP 2001- LAMINEC/FACETECT/FORAMIN,L UMBAR 2012- REMV LENS MATERIAL,PHACOFRAGMT 1999, 2001 Cataract Extraction bilateral- REPAIR ING HERNIA,5+Y/O,REDUCIBL 2003 - left- REPAIR ING HERNIA,5+Y/O,REDUCIBL 2001 2 right- REPAIR UMBILICAL PHYLICIA,5+Y/O,REDUC 2003 with mesh- REVISE MEDIAN N/CARPAL TUNNEL SURG Right 2000 Carpal tunnel decomp right- REVISE MEDIAN N/CARPAL TUNNEL SURG Right 11/2014 Carpal tunnel decompFAMILY HISTORYProblem Relation Age of Onset- Paranoid [OTHER] Son- disabilities [OTHER] Son- Diabetes Mother- Hypertension Mother- Heart Father- Coronary Artery Disease Father- Hypertension Father- Hypertension Brother- COPD Brother- Heart Brother- COPD Brother- Diabetes Brother- Coronary Artery Disease Brother- COPD Brother- COPD Sister- COPD SisterSocial History Marital status: Spouse name: Alethea Years of education: Number of children: 2Social History Main Topics Smoking status: Former Smoker Packs/day: 0.00 Years: 25.00 Smokeless status: Current User Types: Chew Comment: snuff 1 can a week Alcohol use: Yes 1.0 oz/week Comment: rarely Drug use: No Sexual activity: Yes Partners with: FemaleREVIEW OF SYSTEMS: General: No chills, fever, weight loss, night sweats.Respiratory: No productive cough. Cardiac: As noted above. GI: No melena.: No dysuria. Musculoskeletal: No myalgias.PHYSICAL EXAMINATION: S/he is alert and in no distress.VITAL SIGNS: BP 120/84 Pulse 73 Ht 5' 10ANDquot; (1.78m) Wt 240 lb 12.8 oz(109.2kg) BMI 34.55 kg/(m2).SHEENT: Skin is warm and dry. No xanthelasmas appreciated. Pharynx isbenign. There is no oral cyanosis. Neck: supple. No adenopathy or thyroidenlargement. Chest: Clear to percussion and auscultation. Trachea is midline. Air entry is equal. There is no chest wall tenderness. Cardiac: Regularrhythm. S1 and S2 are normal. PMI is nondisplaced. There is a soft systolicejection murmur. Carotids are brisk without bruits. JVP is less than 10 cm.Abdomen: Soft and nontender. Obesity compromises examination. There are nopulsatile masses or bruits. No liver enlargement. Bowel sounds are active.Extremities: No edema. Pulses are intact and symmetrical. No clubbing orcyanosis. No femoral bruits. Neurologic: Grossly normal motor and sensory.S/he is alert and oriented x4.Recent labs were reviewed. Hemoglobin is normal. Renal function is normal. LDLwas 103.EKG shows sinus rhythm. There are no significant repolarization changes. Nochange is seen since 09/19/16.Electronically Signed:Lopez Cohen MDFlow[facility] 2017 9:33 [facility]:Kelly Hooekr MD 09/19/2017 9:33 AM SignedLIFESTYLE CHANGEA healthy lifestyle is the most important component of your overall treatmentplan. Please give serious thought to the following areas and commit to makinglong term changes.EAT A WHOLE FOOD, PLANT BASED DIETThe nutrition your body gets is more important than the medicine you take.What matters most is the overall way you eat. We encourage you to minimize theuse of animal products (which include dairy and all meats except fatty fish)and use whole, unprocessed plant foods to provide your protein, vitamins andother nutrients. We have a lot of information to share with you on this topic. We also hold Shared Medical Appointments, where you can come visit with in the company of other patients and spend over an hour talking aboutthe challenges of changing the way you eat. This is not a ANDquot;dietANDquot;.It is a way of life that you will keep with you.EXERCISE REGULARLYIt is not important to spend hours in the gym, lifting weights and perspiringheavily. A total of 2-3 hours per week of aerobic (causing you to bemoderately short of breath) exercise is sufficient to improve your health.Talk to us before you begin a new exercise program, if you have heart diseaseor experience shortness of breath or chest pain.REDUCE STRESSChronic emotional and physical stress leads to disease. Ways of reducingstress include meditation, visualization, prayer, yoga and other forms ofrelaxation therapy. Consistency is the dillard. Find a technique that works foryou and do it every day.CULTIVATE RELATIONSHIPSLoneliness and isolation have a major negative impact on health. Seek outothers who can love, care for and nurture you. Avoid hurtful relationships.MAINTAIN IDEAL BODY WEIGHTThe best way to do this is to do all the things above. Our bodies naturallyfind the right weight if we keep moving and feed ourselves the right food. Ifyour BMI is greater than 25, we strongly recommend a referral to a weightmanagement program. Please speak to us or your family physician aboutavailable programs.AVOID NICOTINE IN ALL FORMSThis includes all tobacco products, whether chewed, smoked, vaped, or rubbed onthe skin. Smoking cessation programs, which can make use of tobaccosubstitutes, medications to suppress cravings and behavior management, areavailable. 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 (HCC) [I25.708] Other Visit Diagnoses:ASHD (arteriosclerotic heart disease) [I25.10] ROB (dyspnea on exertion) [R06.09]Order(s):ECG B/O W INTERP (MED OFFICE) [ECG06] Order #: [id number] STRESS REGULAR W/TREAD [[id number]] Order #: [id number]: 1Prescriptions as of 09/19/2017 Sig: MULTIVITAMIN TABLET Take [...] * Use 2 Sprays in each nostril *Medication notes this encounter FLUTICASONE 50 MCG/ACTUATION NASAL SPRAY,SUSPENSION >> Edilia Lockhart MA 09/19/2017 9:04 AM >> EDILIA LOCKHART MA Sep 19, 2017 9:04 AM Not usingProblem List As Of Date 09/19/2017 Noted Resolved [...] 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 EAT A WHOLE FOOD, PLANT BASED [...] family physician about programs in your area. Status:Closed by LOPEZ COHEN MD on 09/19/17 [facility] PROGRESSon 09-19-2017 PROGRESS HNO ID: [id number] thor: Lopez Valladares: (none)Author Type: PhysicianType: Progress NotesFiled: 09/19/2017 4:48 PMNote Text:PERTINENT CARDIAC HISTORYAHSD - CABGx3 2012HTNHLADHERENCE TO GUIDELINESACE-I or ARB for HF with prior LVEF<40 (NQF 0081) - N/AASA or Plavix for ASHD (NQF 0067) - metBeta jey for ASHD with prior [place] or prior LVEF<40 (NQF 0070) - N/ABeta jey for HF with prior LVEF<40 (NQF 0083) - N/AACE-I or ARB for ASHD with DM or prior LVEF<40 (NQF 0066) - N/AStatin therapy for ASHD or FHL or DM - metBMI documented and plan if >25 (NQF 0421) - lifestyle recommendation formTobacco use screening and referral (NQF 0028) - lifestyle recommendationformRecommen dation for whole food, plant based diet - lifestyle recommendationformCLINICAL IMPRESSION/PLAN:Jaret Bates has exercise intolerance which is unexplained. This may ochoa ischemic equivalent. I recommended that he undergo non-imaging stresstest evaluation. This will be arranged for him in the near future.Labs are reviewed. His LDL is not to goal. Plant based, whole food diet isrecommended.I have asked him to continue his current medication. His blood pressurehas been borderline low and he is relatively intolerant of Selina inhibitors.He will continue his high-dose statin and aspirin.He will be seen on a to be arranged basis. If there is increased shortnessof breath or if he develops exertional chest discomfort, I have encouragedhim to contact me promptly.Written and verbal health teaching given to patient, patient verbalizesunderstanding and agrees with treatment plan.This note was generated using Personalis voice recognition system, and theremay be some incorrect words, spellings, and punctuation that were notnoted in checking the note before saving.DIAGNOSIS FOR VISIT:ASHDHypertensionExer cise intoleranceHISTORY OF PRESENT ILLNESSJaret Bates returns for follow-up of his coronary artery disease.He has had occasional brief, sharp anterior chest pain. This is notrelated to activity. He has used no nitroglycerin. He had a recent rectalbleed which has resolved.He reports decreased exercise tolerance. He is more short of breath withmoderate activity. He denies edema. He's had no syncope, TIAs, amaurosisor claudication. He has had rare palpitations. He has not been as activethis winter.ALLERGIES:ALLERGIES Allergen Reactions- Adhesive Tape (Maria Eugenia* Itching- Contrast Dye possible- Cortisone edema, erythema-?not sure of drug name- Tabitha And Real Jacobs No.1- Sertraline zoloft, hot, elevated BPCURRENT OUTPATIENT MEDICATIONS:multivitamin tablet Take 1 tablet by mouth once daily.tamsulosin ER (FLOMAX) 0.4 mg cp24 Take 1 capsule by mouth daily atbedtime.naproxen sodium (ALEVE) 220 mg tablet Take 2 tablets by mouth once daily.TAKE WITH FOODatorvastatin (LIPITOR) 80 mg tablet Take 1 tablet by mouth daily atbedtime.venlafaxine ER (EFFEXOR XR) 75 mg 24 hr capsule Take 2 capsules by mouthonce daily.pantoprazole DR (PROTONIX) 40 mg tablet Take 1 tablet by mouth dailybefore breakfast. Take on empty stomach, 1/2 hr before meal.traZODone (DESYREL) 50 mg tablet TAKE ONE TO TWO TABLETS BY MOUTH ATBEDTIME NEEDED FOR SEDATIONalbuterol HFA (VENTOLIN HFA) 90 mcg/actuation inhaler Inhale 2 Puffs asinstructed every 4 hours as needed for Wheezing/Shortness of Breath.gabapentin (NEURONTIN) 300 mg capsule Take 1 capsule by mouth three timesdaily.HYDROcodone-selina taminophen 5-325 mg per tablet Take 1 tablet by mouth every6 hours as needed.cyclobenzaprine (FLEXERIL) 10 mg tablet Take 1 tablet by mouth every 8hours as needed. FOR PAIN OR SPASMSaspirin, enteric coated (ASPIR-81) 81 mg EC tablet Take 1 tablet by mouthonce daily.fluticasone (FLONASE) 50 mcg/actuation nasal spray Use 2 Sprays in eachnostril once daily.PAST MEDICAL HISTORYDiagnosis Date- Asthma- CAD (coronary artery disease) 09/04/2012- Calculus of gallbladder without cholecystitis without mhjyqmxezma30/2/2016- Chronic airway obstruction, not elsewhere classified- Diaphragmatic hernia without mention of obstruction or gangrene Hiatal hernia- Displacement of cervical intervertebral disc without myelopathy12/10/2003- Dysthymic disorder Depression (non-psychotic)- Generalized osteoarthrosis, unspecified site- GERD (gastroesophageal reflux disease) 06/28/2010- Hearing loss of both ears Wears hearing aids - bilateral- Hemorrhoids, internal 06/16/2017 Added automatically from request for surgery [id number]- Impaired fasting glucose 07/15/2016- Myalgia and myositis, unspecified- Other and unspecified hyperlipidemia- Other forms of migraine- Other malaise and fatigue- Other specified disease of hair and hair follicles- Rosacea- Snoring- Temporomandibular joint disorders, unspecified- Tubular adenoma of colon 10/30/2014- Unspecified constipation 06/28/2010PAST SURGICAL HISTORYProcedure Laterality Date- CABG (3) VEIN GRAFTS AND ARTERIAL GRAFT(S) 09/2011 Triple bypass- COLONOS W/REM POLYP SNARE 10/07/14 3 polyps - 2 proximal transverse, 1 distal transverse- COLONOSCOP W/ OR W/O BRS SPEC 07/06/10 Normal- COLONOSCOP W/ OR W/O BRSH SPEC 06/20/2017 Colonoscopy- EGD W/O BRSH SPECIMEN W/BX 07/06/10 gastritis- EGD W/O BRSH SPECIMEN W/BX 10/07/14 duodenitis, gastritis, esophagitis- EGD W/O BRSH SPECIMEN W/BX 09/13/2016 continued inflammation- HEMORRHOIDECT INTER/EXTER SIMP 2001- LAMINEC/FACETECT/FORAMIN,L UMBAR 2012- REMV LENS MATERIAL,PHACOFRAGMT 1999, 2001 Cataract Extraction bilateral- REPAIR ING HERNIA,5+Y/O,REDUCIBL 2004 - left- REPAIR ING HERNIA,5+Y/O,REDUCIBL 2001 2 right- REPAIR UMBILICAL PHYLICIA,5+Y/O,REDUC 2003 with mesh- REVISE MEDIAN N/CARPAL TUNNEL SURG Right 2000 Carpal tunnel decomp right- REVISE MEDIAN N/CARPAL TUNNEL SURG Right 11/2014 Carpal tunnel decompFAMILY HISTORYProblem Relation Age of Onset- Paranoid [OTHER] Son- disabilities [OTHER] Son- Diabetes Mother- Hypertension Mother- Heart Father- Coronary Artery Disease Father- Hypertension Father- Hypertension Brother- COPD Brother- Heart Brother- COPD Brother- Diabetes Brother- Coronary Artery Disease Brother- COPD Brother- COPD Sister- COPD SisterSocial History Marital status: Spouse name: Alethea Years of education: Number of children: 2Social History Main Topics Smoking status: Former Smoker Packs/day: 0.00 Years: 25.00 Smokeless status: Current User Types: Chew Comment: snuff 1 can a week Alcohol use: Yes 1.0 oz/week Comment: rarely Drug use: No Sexual activity: Yes Partners with: FemaleREVIEW OF SYSTEMS: General: No chills, fever, weight loss, night sweats. Respiratory: No productive cough. Cardiac: As noted above. GI: Nomelena. : No dysuria. Musculoskeletal: No myalgias.PHYSICAL EXAMINATION: S/he is alert and in no distress.VITAL SIGNS: BP 120/84 Pulse 73 Ht 5' 10 (1.78m) Wt 240 lb 12.8 oz(109.2kg) BMI 34.55 kg/(m2).SHEENT: Skin is warm and dry. No xanthelasmas appreciated. Pharynx isbenign. There is no oral cyanosis. Neck: supple. No adenopathy orthyroid enlargement. Chest: Clear to percussion and auscultation.Trachea is midline. Air entry is equal. There is no chest walltenderness. Cardiac: Regular rhythm. S1 and S2 are normal. PMI isnondisplaced. There is a soft systolic ejection murmur. Carotids arebrisk without bruits. JVP is less than 10 cm. Abdomen: Soft andnontender. Obesity compromises examination. There are no pulsatile massesor bruits. No liver enlargement. Bowel sounds are active. Extremities:No edema. Pulses are intact and symmetrical. No clubbing or cyanosis.No femoral bruits. Neurologic: Grossly normal motor and sensory. S/he isalert and oriented x4.Recent labs were reviewed. Hemoglobin is normal. Renal function is normal.LDL was 103.EKG shows sinus rhythm. There are no significant repolarization changes.No change is seen since 09/19/16.Electronically Signed:Lopez Cohen MDFebruary 2017 9:33 [facility]:Jose Luis Lopez MD Normal [facility] Culture, urine Bacteria identified Cx Nom (U) Culture exhibits no growth. [facility] Work Phone: Vital Signs Date Time Vital Sign Value Performing Clinician Facility 02-25-2025 09:16-0400 Body height 177.[address] Marshall Bear MD Work Phone: [facility] 02-25-2025 09:16-0400 Body mass index (BMI) [Ratio] 27.3 kg/m2 Dr. Marshall Bear MD Work Phone: [facility] 02-25-2025 09:16-0400 Body weight 86.[address] Marshall Bear MD Work Phone: [facility] 02-25-2025 09:16-0400 Diastolic blood pressure 82 mm[Hg] Dr. Marshall Bear MD Work Phone: [facility] 02-25-2025 09:16-0400 Heart rate 56 /min Dr. Marshall Bear MD Work Phone: [facility] 02-25-2025 09:16-0400 Respiratory rate 16 /min Dr. Marshall Bear MD Work Phone: [facility] 02-25-2025 09:16-0400 Systolic blood pressure 138 mm[Hg] Dr. Marshall Bear MD Work Phone: [facility] 01-27-2025 11:26-0400 Diastolic blood pressure 93 mm[Hg] Dr. Marshall Bear MD Work Phone: [facility] 01-27-2025 11:26-0400 Heart rate 74 /min Dr. Marshall Bear MD Work Phone: [facility] 01-27-2025 11:26-0400 Systolic blood pressure 143 mm[Hg] Dr. Marshall Bear MD Work Phone: [facility] 01-27-2025 10:47-0400 Body height 177.[address] Marshall Bear MD Work Phone: [facility] 01-27-2025 10:47-0400 Body mass index (BMI) [Ratio] 27.4 kg/m2 Dr. Marshall Bear MD Work Phone: [facility] 01-27-2025 10:47-0400 Body temperature 98.2 [degF] Dr. Marshall Bear MD Work Phone: [facility] 01-27-2025 10:47-0400 Body weight 86.[address] Marshall Bear MD Work Phone: [facility] 01-27-2025 10:47-0400 Diastolic blood pressure 78 mm[Hg] Dr. Marshall Bear MD Work Phone: [facility] 01-27-2025 10:47-0400 Heart rate 69 /min Dr. Marshall Bear MD Work Phone: [facility] 01-27-2025 10:47-0400 Respiratory rate 16 /min Dr. Marshall Bear MD Work Phone: [facility] 01-27-2025 10:47-0400 SaO2% (BldA) [Mass fraction] 96 % Dr. Marshall Bear MD Work Phone: [facility] 01-27-2025 10:47-0400 Systolic blood pressure 128 mm[Hg] Dr. Marshall Bear MD Work Phone: [facility] 10-04-2024 09:52-0500 Body mass index (BMI) [Ratio] 26.6 kg/m2 Dr. Marshall Bear MD Work Phone: [facility] 10-04-2024 09:52-0500 Body temperature 98.4 [degF] Dr. Marshall Bear MD Work Phone: [facility] 10-04-2024 09:52-0500 Body weight 84.[address] Marshall Bear MD Work Phone: [facility] 10-04-2024 09:52-0500 Diastolic blood pressure 68 mm[Hg] Dr. Marshall Bear MD Work Phone: [facility] 10-04-2024 09:52-0500 Heart rate 77 /min Dr. Marshall Bear MD Work Phone: [facility] 10-04-2024 09:52-0500 Respiratory rate 15 /min Dr. Marshall Bear MD Work Phone: [facility] 10-04-2024 09:52-0500 SaO2% (BldA) [Mass fraction] 98 % Dr. Marshall Bear MD Work Phone: [facility] 10-04-2024 09:52-0500 Systolic blood pressure 114 mm[Hg] Dr. Marshall Bear MD Work Phone: [facility] 12-12-2023 12:46-0400 Body temperature 98 [degF] Dr. Marshall Bear Work Phone: [facility] 12-12-2023 12:46-0400 Diastolic blood pressure 106 mm[Hg] Dr. Marshall Bear Work Phone: [facility] 12-12-2023 12:46-0400 Heart rate 74 /min Dr. Marshall Bear Work Phone: [facility] 12-12-2023 12:46-0400 Respiratory rate 16 /min Dr. Marshall Bear Work Phone: [facility] 12-12-2023 12:46-0400 SaO2% (BldA) [Mass fraction] 97 % Dr. Marshall Bear Work Phone: [facility] 12-12-2023 12:46-0400 Systolic blood pressure 149 mm[Hg] Dr. Marshall Bear Work Phone: [facility] 12-10-2023 01:00-0400 Body height 177.[address] Marshall Bear Work Phone: [facility] 12-10-2023 01:00-0400 Body mass index (BMI) [Ratio] 24.7 kg/m2 Dr. Marshall Bear Work Phone: [facility] 12-10-2023 01:00-0400 Body weight 78.[address] Marshall Bear Work Phone: [facility] 11-08-2023 13:12-0400 Body height 177.[address] Marshall Bear Work Phone: [facility] 11-08-2023 13:12-0400 Body mass index (BMI) [Ratio] 26.7 kg/m2 Dr. Marshall Bear Work Phone: [facility] 11-08-2023 13:12-0400 Body temperature 98.2 [degF] Dr. Marshall Bear Work Phone: [facility] 11-08-2023 13:12-0400 Body weight 84.[address] Marshall Bear Work Phone: [facility] 11-08-2023 13:12-0400 Diastolic blood pressure 92 mm[Hg] Dr. Marshall Bear Work Phone: [facility] 11-08-2023 13:12-0400 Heart rate 89 /min Dr. Marshall Bear Work Phone: [facility] 11-08-2023 13:12-0400 Respiratory rate 18 /min Dr. Marshall Bear Work Phone: [facility] 11-08-2023 13:12-0400 SaO2% (BldA) [Mass fraction] 95 % Dr. Marshall Bear Work Phone: [facility] 11-08-2023 13:12-0400 Systolic blood pressure 145 mm[Hg] Dr. Marshall Bear Work Phone: [facility] 11-01-2023 14:21-0400 Body temperature 97.7 [degF] Dr. Marshall Bear Work Phone: [facility] 11-01-2023 14:21-0400 Diastolic blood pressure 86 mm[Hg] Dr. Marshall Bear Work Phone: [facility] 11-01-2023 14:21-0400 Heart rate 74 /min Dr. Marshall Bear Work Phone: [facility] 11-01-2023 14:21-0400 Respiratory rate 16 /min Dr. Marshall Bear Work Phone: [facility] 11-01-2023 14:21-0400 SaO2% (BldA) [Mass fraction] 99 % Dr. Marshall Bear Work Phone: [facility] 11-01-2023 14:21-0400 Systolic blood pressure 135 mm[Hg] Dr. Marshall Bear Work Phone: [facility] 11-01-2023 11:05-0400 Body height 177.[address] Marshall Bear Work Phone: [facility] 11-01-2023 11:05-0400 Body mass index (BMI) [Ratio] 26.9 kg/m2 Dr. Marshall Bear Work Phone: [facility] 11-01-2023 11:05-0400 Body weight 85.[address] Marshall Bear Work Phone: [facility] 10-26-2023 17:06-0400 Body mass index (BMI) [Ratio] 26.4 kg/m2 Dr. Marshall Bear Work Phone: [facility] 10-26-2023 14:45-0400 Body temperature 98.1 [degF] Dr. Marshall Bear Work Phone: [facility] 10-26-2023 14:45-0400 Diastolic blood pressure 67 mm[Hg] Dr. Marshall Bear Work Phone: [facility] 10-26-2023 14:45-0400 Heart rate 96 /min Dr. Marshall Bear Work Phone: [facility] 10-26-2023 14:45-0400 Respiratory rate 18 /min Dr. Marshall Bear Work Phone: [facility] 10-26-2023 14:45-0400 SaO2% (BldA) [Mass fraction] 97 % Dr. Marshall Bear Work Phone: [facility] 10-26-2023 14:45-0400 Systolic blood pressure 109 mm[Hg] Dr. Marshall Bear Work Phone: [facility] 10-26-2023 04:18-0400 Body weight 83.[address] Marshlal Bear Work Phone: [facility] 10-22-2023 16:51-0400 Body height 177.[address] Marshall Bear Work Phone: [facility] 10-21-2023 19:50-0500 Body temperature 97.6 [degF] Dr. Marshall Bear Work Phone: [facility] 10-21-2023 19:50-0500 Diastolic blood pressure 75 mm[Hg] Dr. Marshall Bear Work Phone: [facility] 10-21-2023 19:50-0500 Heart rate 78 /min Dr. Marshall Bear Work Phone: [facility] 10-21-2023 19:50-0500 Respiratory rate 21 /min Dr. Marshall Bear Work Phone: [facility] 10-21-2023 19:50-0500 SaO2% (BldA) [Mass fraction] 95 % Dr. Marshall Bear Work Phone: [facility] 10-21-2023 19:50-0500 Systolic blood pressure 135 mm[Hg] Dr. Marshall Bear Work Phone: [facility] 10-21-2023 18:18-0500 Body height 177.[address] Marshall Bear Work Phone: [facility] 10-21-2023 18:18-0500 Body mass index (BMI) [Ratio] 27.1 kg/m2 Dr. Marshall Bear Work Phone: [facility] 10-21-2023 18:18-0500 Body weight 85.[address] Marshall Bear Work Phone: [facility] 10-11-2023 09:18-0500 Diastolic blood pressure 72 mm[Hg] Ben Marshall MD Work Phone: [facility] 10-11-2023 09:18-0500 Heart rate 82 /min Ben Marshall MD Work Phone: [facility] 10-11-2023 09:18-0500 Respiratory rate 16 /min Ben Marshall MD Work Phone: [facility] 10-11-2023 09:18-0500 SaO2% (BldA) [Mass fraction] 97 % Ben Marshall MD Work Phone: [facility] 10-11-2023 09:18-0500 Systolic blood pressure 108 mm[Hg] Ben Marshall MD Work Phone: [facility] 10-11-2023 08:08-0500 Body temperature 97.81 [degF] Ben Marshall MD Work Phone: [facility] 10-11-2023 08:08-0500 Body weight 96.6 kg Ben Marshall MD Work Phone: [facility] 10-01-2023 18:44-0500 Body temperature 97.7 [degF] Dr. Marshall Bear Work Phone: [facility] 10-01-2023 18:44-0500 Diastolic blood pressure 93 mm[Hg] Dr. Marshall Bear Work Phone: [facility] 10-01-2023 18:44-0500 Heart rate 110 /min Dr. Marshall Bear Work Phone: [facility] 10-01-2023 18:44-0500 Respiratory rate 18 /min Dr. Marshall Bear Work Phone: [facility] 10-01-2023 18:44-0500 SaO2% (BldA) [Mass fraction] 97 % Dr. Marshall Bear Work Phone: [facility] 10-01-2023 18:44-0500 Systolic blood pressure 130 mm[Hg] Dr. Marshall Bear Work Phone: [facility] 10-01-2023 15:42-0500 Body mass index (BMI) [Ratio] 27.3 kg/m2 Dr. Marshall Bear Work Phone: [facility] 10-01-2023 15:42-0500 Body weight 86.[address] Marshall Bear Work Phone: [facility] 10-01-2023 15:01-0500 Body height 177.[address] Marshall Bear Work Phone: [facility] 09-27-2023 08:08-0500 Body mass index (BMI) [Ratio] 27.7 kg/m2 Dr. Marshall Bear Work Phone: [facility] 09-27-2023 08:08-0500 Body temperature 97.8 [degF] Dr. Marshall Bear Work Phone: [facility] 09-27-2023 08:08-0500 Body weight 87.[address] Marshall Bear Work Phone: [facility] 09-27-2023 08:08-0500 Diastolic blood pressure 78 mm[Hg] Dr. Marshall Bear Work Phone: [facility] 09-27-2023 08:08-0500 Heart rate 90 /min Dr. Marshall Bear Work Phone: [facility] 09-27-2023 08:08-0500 Respiratory rate 18 /min Dr. Marshall Bear Work Phone: [facility] 09-27-2023 08:08-0500 SaO2% (BldA) [Mass fraction] 97 % Dr. Marshall Bear Work Phone: [facility] 09-27-2023 08:08-0500 Systolic blood pressure 120 mm[Hg] Dr. Marshall Bear Work Phone: [facility] 09-26-2023 07:59-0500 Body mass index (BMI) [Ratio] 27.7 kg/m2 Dr. Marshall Bear Work Phone: [facility] 09-26-2023 07:59-0500 Body temperature 97.8 [degF] Dr. Marshall Bear Work Phone: [facility] 09-26-2023 07:59-0500 Body weight 87.[address] Marshall Bear Work Phone: [facility] 09-26-2023 07:59-0500 Diastolic blood pressure 82 mm[Hg] Dr. Marshall Bear Work Phone: [facility] 09-26-2023 07:59-0500 Heart rate 102 /min Dr. Marshall Bear Work Phone: [facility] 09-26-2023 07:59-0500 Respiratory rate 17 /min Dr. Marshall Bear Work Phone: [facility] 09-26-2023 07:59-0500 SaO2% (BldA) [Mass fraction] 97 % Dr. Marshall Bear Work Phone: [facility] 09-26-2023 07:59-0500 Systolic blood pressure 122 mm[Hg] Dr. Marshall Bear Work Phone: [facility] 08-21-2023 13:06-0500 Body height 177.[address] Marshall Bear Work Phone: [facility] 08-21-2023 13:06-0500 Body mass index (BMI) [Ratio] 29.9 kg/m2 Dr. Marshall Bear Work Phone: [facility] 08-21-2023 13:06-0500 Body temperature 98.3 [degF] Dr. Marshall Bear Work Phone: [facility] 08-21-2023 13:06-0500 Body weight 94.[address] Marshall Bear Work Phone: [facility] 08-21-2023 13:06-0500 Diastolic blood pressure 84 mm[Hg] Dr. Marshall Bear Work Phone: [facility] 08-21-2023 13:06-0500 Heart rate 71 /min Dr. Marshall Bear Work Phone: [facility] 08-21-2023 13:06-0500 Respiratory rate 16 /min Dr. Marshall Bear Work Phone: [facility] 08-21-2023 13:06-0500 SaO2% (BldA) [Mass fraction] 94 % Dr. Marshall Bear Work Phone: [facility] 08-21-2023 13:06-0500 Systolic blood pressure 135 mm[Hg] Dr. Marshall Bear Work Phone: [facility] 08-14-2023 19:40-0500 Diastolic blood pressure 68 mm[Hg] Dr. Marshall Bear Work Phone: [facility] 08-14-2023 19:40-0500 Heart rate 65 /min Dr. Marshall Bear Work Phone: [facility] 08-14-2023 19:40-0500 Respiratory rate 17 /min Dr. Marshall Bear Work Phone: [facility] 08-14-2023 19:40-0500 SaO2% (BldA) [Mass fraction] 93 % Dr. Marshall Bear Work Phone: [facility] 08-14-2023 19:40-0500 Systolic blood pressure 125 mm[Hg] Dr. Marshall Bear Work Phone: [facility] 08-14-2023 17:40-0500 Body temperature 98.4 [degF] Dr. Marshall Bear Work Phone: [facility] 08-14-2023 15:31-0500 Body height 177.[address] Marshall Bear Work Phone: [facility] 08-14-2023 15:31-0500 Body mass index (BMI) [Ratio] 31.2 kg/m2 Dr. Marshall Bear Work Phone: [facility] 08-14-2023 15:31-0500 Body weight 98.[address] Marshall Bear Work Phone: [facility] 08-04-2023 17:57-0500 Body height 177.[address] Marshall Bear Work Phone: [facility] 08-04-2023 17:57-0500 Body mass index (BMI) [Ratio] 30.4 kg/m2 Dr. Marshall Bear Work Phone: [facility] 08-04-2023 17:57-0500 Body temperature 97 [degF] Dr. Marshall Bear Work Phone: [facility] 08-04-2023 17:57-0500 Body weight 96.[address] Marshall Bear Work Phone: [facility] 08-04-2023 17:57-0500 Diastolic blood pressure 90 mm[Hg] Dr. Marshall Bear Work Phone: [facility] 08-04-2023 17:57-0500 Heart rate 108 /min Dr. Marshall Bear Work Phone: [facility] 08-04-2023 17:57-0500 Respiratory rate 16 /min Dr. Marshall Bear Work Phone: [facility] 08-04-2023 17:57-0500 SaO2% (BldA) [Mass fraction] 98 % Dr. Marshall Bear Work Phone: [facility] 08-04-2023 17:57-0500 Systolic blood pressure 153 mm[Hg] Dr. Marshall Bear Work Phone: [facility] 07-20-2023 13:22-0500 Body temperature 98 [degF] Dr. Marshall Bear Work Phone: [facility] 07-20-2023 13:22-0500 Diastolic blood pressure 88 mm[Hg] Dr. Marshall Bear Work Phone: [facility] 07-20-2023 13:22-0500 Heart rate 79 /min Dr. Marshall Bear Work Phone: [facility] 07-20-2023 13:22-0500 Respiratory rate 18 /min Dr. Marshall Bear Work Phone: [facility] 07-20-2023 13:22-0500 SaO2% (BldA) [Mass fraction] 94 % Dr. Marshall Bear Work Phone: [facility] 07-20-2023 13:22-0500 Systolic blood pressure 134 mm[Hg] Dr. Marshall Bear Work Phone: [facility] 07-18-2023 12:34-0500 Body height 177.[address] Marshall Bear Work Phone: [facility] 07-18-2023 12:34-0500 Body mass index (BMI) [Ratio] 31.4 kg/m2 Dr. Marshall Bear Work Phone: [facility] 07-18-2023 12:34-0500 Body weight 99.[address] Marshall Bear Work Phone: [facility] 07-18-2023 12:22-0500 Inhaled oxygen flow rate 4 L/min Dr. Marshall Bear Work Phone: [facility] 05-19-2023 13:35-0400 Body height 177.[address] Marshall Bear Work Phone: [facility] 05-19-2023 13:35-0400 Body mass index (BMI) [Ratio] 30.4 kg/m2 Dr. Marshall Bear Work Phone: [facility] 05-19-2023 13:35-0400 Body temperature 98.2 [degF] Dr. Marshall Bear Work Phone: [facility] 05-19-2023 13:35-0400 Body weight 96.[address] Marshall Bear Work Phone: [facility] 05-19-2023 13:35-0400 Diastolic blood pressure 94 mm[Hg] Dr. Marshall Bear Work Phone: [facility] 05-19-2023 13:35-0400 Heart rate 82 /min Dr. Marshall Bear Work Phone: [facility] 05-19-2023 13:35-0400 Respiratory rate 16 /min Dr. Marshall Bear Work Phone: [facility] 05-19-2023 13:35-0400 SaO2% (BldA) [Mass fraction] 95 % Dr. Marshall Bear Work Phone: [facility] 05-19-2023 13:35-0400 Systolic blood pressure 138 mm[Hg] Dr. Marshall Bear Work Phone: [facility] 05-15-2023 12:40-0400 Body temperature 97.5 [degF] Dr. Marshall Bear Work Phone: [facility] 05-15-2023 12:40-0400 Diastolic blood pressure 91 mm[Hg] Dr. Marshall Bear Work Phone: [facility] 05-15-2023 12:40-0400 Heart rate 65 /min Dr. Marshall Bear Work Phone: [facility] 05-15-2023 12:40-0400 Respiratory rate 18 /min Dr. Marshall Bear Work Phone: [facility] 05-15-2023 12:40-0400 SaO2% (BldA) [Mass fraction] 99 % Dr. Marshall Bear Work Phone: [facility] 05-15-2023 12:40-0400 Systolic blood pressure 157 mm[Hg] Dr. Marshall Bear Work Phone: [facility] 05-15-2023 10:42-0400 Body height 177.[address] Marshall Bear Work Phone: [facility] 05-15-2023 10:42-0400 Body mass index (BMI) [Ratio] 31.1 kg/m2 Dr. Marshall Bear Work Phone: [facility] 05-15-2023 10:42-0400 Body weight 98.[address] Marshall Bear Work Phone: [facility] 05-11-2023 22:03-0400 Diastolic blood pressure 76 mm[Hg] Dr. Marshall Bear Work Phone: [facility] 05-11-2023 22:03-0400 Heart rate 93 /min Dr. Marshall Bear Work Phone: [facility] 05-11-2023 22:03-0400 Respiratory rate 18 /min Dr. Marshall Bear Work Phone: [facility] 05-11-2023 22:03-0400 SaO2% (BldA) [Mass fraction] 95 % Dr. Marshall Bear Work Phone: [facility] 05-11-2023 22:03-0400 Systolic blood pressure 129 mm[Hg] Dr. Marshall Bear Work Phone: [facility] 05-11-2023 17:57-0400 Body mass index (BMI) [Ratio] 31.7 kg/m2 Dr. Marshall Bear Work Phone: [facility] 05-11-2023 17:57-0400 Body temperature 97.1 [degF] Dr. Marshall Bear Work Phone: [facility] 05-11-2023 17:57-0400 Body weight 100.[address] Marshall Bear Work Phone: [facility] 05-11-2023 14:28-0400 Body mass index (BMI) [Ratio] 31.4 kg/m2 Dr. Marshall Bear Work Phone: [facility] 05-11-2023 14:28-0400 Body temperature 98.1 [degF] Dr. Marshall Bear Work Phone: [facility] 05-11-2023 14:28-0400 Body weight 99.[address] Marshall Bear Work Phone: [facility] 05-11-2023 14:28-0400 Diastolic blood pressure 83 mm[Hg] Dr. Marshall Bear Work Phone: [facility] 05-11-2023 14:28-0400 Heart rate 77 /min Dr. Marshall Bear Work Phone: [facility] 05-11-2023 14:28-0400 Respiratory rate 18 /min Dr. Marshall Bear Work Phone: [facility] 05-11-2023 14:28-0400 SaO2% (BldA) [Mass fraction] 94 % Dr. Marshall Bear Work Phone: [facility] 05-11-2023 14:28-0400 Systolic blood pressure 132 mm[Hg] Dr. Marshall Bear Work Phone: [facility] 05-10-2023 04:24-0400 Diastolic blood pressure 91 mm[Hg] Dr. Marshall Bear Work Phone: [facility] 05-10-2023 04:24-0400 Heart rate 73 /min Dr. Marshall Bear Work Phone: [facility] 05-10-2023 04:24-0400 Respiratory rate 15 /min Dr. Marshall Bear Work Phone: [facility] 05-10-2023 04:24-0400 SaO2% (BldA) [Mass fraction] 96 % Dr. Marshall Bear Work Phone: [facility] 05-10-2023 04:24-0400 Systolic blood pressure 166 mm[Hg] Dr. Marshall Bear Work Phone: [facility] 05-10-2023 03:09-0400 Body mass index (BMI) [Ratio] 32 kg/m2 Dr. Marshall Bear Work Phone: [facility] 05-10-2023 03:09-0400 Body temperature 98 [degF] Dr. Marshall Bear Work Phone: [facility] 05-10-2023 03:09-0400 Body weight 101.[address] Marshall Bear Work Phone: [facility] 12-20-2022 06:28-0400 Body height 177.8 cm MD Marshall Bear [facility] 12-20-2022 06:28-0400 Body mass index (BMI) [Ratio] 30.7 kg/m2 MD Marshall Bear [facility] 12-20-2022 06:28-0400 Body temperature 98.2 [degF] MD Marshall Bear [facility] 12-20-2022 06:28-0400 Body weight 97.29 kg MD Marshall Bear [facility] 12-20-2022 06:28-0400 Diastolic blood pressure 74 mm[Hg] MD Marshall Bear [facility] 12-20-2022 06:28-0400 Heart rate 72 /min MD Marshall Bear [facility] 12-20-2022 06:28-0400 Respiratory rate 16 /min MD Marshall Bear [facility] 12-20-2022 06:28-0400 SaO2% (BldA) [Mass fraction] 97 % MD Marshall Bear [facility] 12-20-2022 06:28-0400 Systolic blood pressure 140 mm[Hg] MD Marshall Bear [facility] 12-16-2022 10:04-0400 Body mass index (BMI) [Ratio] 30.8 kg/m2 MD Marshall Bear [facility] 12-16-2022 10:04-0400 Body weight 97.52 kg MD Marshall Bear [facility] 12-16-2022 10:04-0400 Diastolic blood pressure 87 mm[Hg] MD Marshall Bear [facility] 12-16-2022 10:04-0400 Heart rate 72 /min MD Marshall Bear [facility] 12-16-2022 10:04-0400 Respiratory rate 16 /min MD Marshall Bear [facility] 12-16-2022 10:04-0400 Systolic blood pressure 137 mm[Hg] MD Mrashall Bear [facility] 11-18-2022 09:25-0400 Body height 177.8 cm Edilia Hunter PA-C Work Phone: [facility] 11-18-2022 09:25-0400 Body temperature 98.01 [degF] Edilia Hunter PA-C Work Phone: [facility] 11-18-2022 09:25-0400 Body weight 96.62 kg Edilia Titi PA-C Work Phone: [facility] 11-18-2022 09:25-0400 Diastolic blood pressure 78 mm[Hg] Edilia Titi PA-C Work Phone: [facility] 11-18-2022 09:25-0400 Heart rate 89 /min Edilia Cannelton PA-C Work Phone: [facility] 11-18-2022 09:25-0400 SaO2% (BldA) [Mass fraction] 95 % Edilia Titi PA-C Work Phone: [facility] 11-18-2022 09:25-0400 Systolic blood pressure 140 mm[Hg] Edilia Titi PA-C Work Phone: [facility] 11-14-2022 15:04-0400 Diastolic blood pressure 72 mm[Hg] MD Marshall Bear [facility] 11-14-2022 15:04-0400 Heart rate 78 /min MD Marshall Bear [facility] 11-14-2022 15:04-0400 Respiratory rate 16 /min MD Marshall Bear [facility] 11-14-2022 15:04-0400 SaO2% (BldA) [Mass fraction] 96 % MD Marshall Bear [facility] 11-14-2022 15:04-0400 Systolic blood pressure 136 mm[Hg] MD Marshall Bear [facility] 11-14-2022 11:20-0400 Body height 178 cm MD Marshall Bear [facility] 11-14-2022 11:20-0400 Body mass index (BMI) [Ratio] 25.5 kg/m2 MD Marshall Bear [facility] 11-14-2022 11:20-0400 Body temperature 98.1 [degF] MD Marshall Bear [facility] 11-14-2022 11:20-0400 Body weight 80.9 kg MD Marshall Bear [facility] 11-04-2022 11:02-0400 Body height 177.8 cm Pacc 1 Work Phone: [facility] 11-04-2022 11:02-0400 Body temperature 98.2 [degF] Pacc 1 Work Phone: [facility] 11-04-2022 11:02-0400 Body weight 99.34 kg Pacc 1 Work Phone: [facility] 11-04-2022 11:02-0400 Diastolic blood pressure 82 mm[Hg] Pacc 1 Work Phone: [facility] 11-04-2022 11:02-0400 Heart rate 69 /min Pacc 1 Work Phone: [facility] 11-04-2022 11:02-0400 Respiratory rate 14 /min Pacc 1 Work Phone: [facility] 11-04-2022 11:02-0400 SaO2% (BldA) [Mass fraction] 97 % Pacc 1 Work Phone: [facility] 11-04-2022 11:02-0400 Systolic blood pressure 132 mm[Hg] Pacc 1 Work Phone: [facility] 10-27-2022 09:05-0400 Body temperature 97.5 [degF] MD Marshall Bear [facility] 10-27-2022 09:05-0400 Body weight 101.6 kg MD Marshall Bear [facility] 10-27-2022 09:05-0400 Diastolic blood pressure 80 mm[Hg] MD Marshall Bear [facility] 10-27-2022 09:05-0400 Heart rate 63 /min MD Marshall Bear [facility] 10-27-2022 09:05-0400 Respiratory rate 16 /min MD Marshall Bear [facility] 10-27-2022 09:05-0400 SaO2% (BldA) [Mass fraction] 94 % MD Marshall Bear [facility] 10-27-2022 09:05-0400 Systolic blood pressure 134 mm[Hg] MD Marshall Bear [facility] 10-20-2022 08:49-0500 Body height 177.8 cm Jose Juan Pena MD Work Phone: [facility] 10-20-2022 08:49-0500 Body temperature 97.9 [degF] Jose Juan Pena MD Work Phone: [facility] 10-20-2022 08:49-0500 Body weight 100.25 kg Jose Juan Pena MD Work Phone: [facility] 10-20-2022 08:49-0500 Diastolic blood pressure 78 mm[Hg] Jose Juan Pena MD Work Phone: [facility] 10-20-2022 08:49-0500 Heart rate 80 /min Jose Juan Pena MD Work Phone: [facility] 10-20-2022 08:49-0500 Respiratory rate 12 /min Jose Juan Pena MD Work Phone: [facility] 10-20-2022 08:49-0500 SaO2% (BldA) [Mass fraction] 96 % Jose Juan Pena MD Work Phone: [facility] 10-20-2022 08:49-0500 Systolic blood pressure 122 mm[Hg] Jose Juan Pena MD Work Phone: [facility] 10-07-2022 15:25-0500 Body temperature 97.9 [degF] Edilia Titi PA-C Work Phone: [facility] 10-07-2022 15:25-0500 Diastolic blood pressure 88 mm[Hg] Edilia Titi PA-C Work Phone: [facility] 10-07-2022 15:25-0500 Heart rate 82 /min Edilia Cannelton PA-C Work Phone: [facility] 10-07-2022 15:25-0500 SaO2% (BldA) [Mass fraction] 95 % Edilia Titi PA-C Work Phone: [facility] 10-07-2022 15:25-0500 Systolic blood pressure 112 mm[Hg] Edilia Hunter PA-C Work Phone: [facility] 09-27-2022 11:00-0500 Diastolic blood pressure 67 mm[Hg] Jose Juan Pena MD Work Phone: [facility] 09-27-2022 11:00-0500 Heart rate 67 /min Jose Juan Pena MD Work Phone: [facility] 09-27-2022 11:00-0500 Respiratory rate 16 /min Jose Juan Pena MD Work Phone: [facility] 09-27-2022 11:00-0500 SaO2% (BldA) [Mass fraction] 93 % Jose Juan Pena MD Work Phone: [facility] 09-27-2022 11:00-0500 Systolic blood pressure 149 mm[Hg] Jose Juan Pena MD Work Phone: [facility] 09-27-2022 07:58-0500 Body temperature 97.39 [degF] Jose Juan Pena MD Work Phone: [facility] 09-27-2022 07:58-0500 Body weight 100.1 kg Jose Juan Pena MD Work Phone: [facility] 09-12-2022 12:10-0500 Respiratory rate 16 /min MD Marshall Bear [facility] 09-12-2022 10:08-0500 Body height 177.8 cm MD Marshall Bear [facility] 09-12-2022 10:08-0500 Body mass index (BMI) [Ratio] 31.8 kg/m2 [facility] 09-12-2022 10:08-0500 Body temperature 97.2 [degF] MD Marshall Bear [facility] 09-12-2022 10:08-0500 Body weight 100.69 kg MD Marshall Bear [facility] 09-12-2022 10:08-0500 Diastolic blood pressure 88 mm[Hg] [facility] 09-12-2022 10:08-0500 Heart rate 71 /min MD Marshall Bear [facility] 09-12-2022 10:08-0500 SaO2% (BldA) [Mass fraction] 100 % Marshall [facility] 09-12-2022 10:08-0500 Systolic blood pressure 128 mm[Hg] Marshall [facility] 09-12-2022 09:02-0500 Body temperature 98.1 [degF] Marshall Chema [facility] 09-12-2022 09:02-0500 Body weight 100.47 kg Marshall [facility] 09-12-2022 09:02-0500 Diastolic blood pressure 80 mm[Hg] Marshall [facility] 09-12-2022 09:02-0500 Heart rate 73 /min Marshall [facility] 09-12-2022 09:02-0500 Respiratory rate 18 /min Marshall [facility] 09-12-2022 09:02-0500 SaO2% (BldA) [Mass fraction] 94 % Marshall [facility] 09-12-2022 09:02-0500 Systolic blood pressure 129 mm[Hg] Marshall [facility] 08-09-2022 13:11-0500 Body height 177.8 cm Edilia Cannelton PA-C Work Phone: [facility] 08-09-2022 13:11-0500 Body temperature 97.2 [degF] Edilia Titi PA-C Work Phone: [facility] 08-09-2022 13:11-0500 Body weight 100.06 kg Edilia Titi PA-C Work Phone: [facility] 08-09-2022 13:11-0500 Diastolic blood pressure 76 mm[Hg] Edilia Titi PA-C Work Phone: [facility] 08-09-2022 13:11-0500 Heart rate 82 /min Edilia Cannelton PA-C Work Phone: [facility] 08-09-2022 13:11-0500 SaO2% (BldA) [Mass fraction] 97 % Edilia Graf MULTANI Work Phone: [facility] 08-09-2022 13:11-0500 Systolic blood pressure 108 mm[Hg] Edilia PA-C Work Phone: [facility] 08-02-2022 13:35-0500 Body mass index (BMI) [Ratio] 31.1 kg/m2 Marshall [facility] 08-02-2022 13:35-0500 Body temperature 97.5 [degF] Marshall [facility] 08-02-2022 13:35-0500 Body weight 98.42 kg Marshall [facility] 08-02-2022 13:35-0500 Diastolic blood pressure 78 mm[Hg] Marshall [facility] 08-02-2022 13:35-0500 Heart rate 66 /min Marshall [facility] 08-02-2022 13:35-0500 SaO2% (BldA) [Mass fraction] 98 % Marshall [facility] 08-02-2022 13:35-0500 Systolic blood pressure 124 mm[Hg] Marshall [facility] 06-20-2022 10:30-0500 Body temperature 98.6 [degF] Marshall Chema [facility] 06-20-2022 10:30-0500 Diastolic blood pressure 81 mm[Hg] Marshall [facility] 06-20-2022 10:30-0500 Heart rate 60 /min Marshall [facility] 06-20-2022 10:30-0500 Respiratory rate 16 /min Marshall [facility] 06-20-2022 10:30-0500 SaO2% (BldA) [Mass fraction] 93 % Marshall [facility] 06-20-2022 10:30-0500 Systolic blood pressure 123 mm[Hg] [facility] 06-20-2022 09:38-0500 Body height 177.8 cm [facility] Work [facility]: 06-20-2022 09:38-0500 Body mass index (BMI) [Ratio] 31.3 kg/m2 [facility] 06-20-2022 09:38-0500 Body weight 99 kg Marshall [facility] 04-21-2022 08:29-0400 Body temperature 98.4 [degF] Marshall [facility] Work Phone: 04-21-2022 08:29-0400 Body weight 99.79 kg Marshall [facility] Work Phone: 04-21-2022 08:29-0400 Diastolic blood pressure 86 mm[Hg] Marshall [facility] Work Phone: 04-21-2022 08:29-0400 Heart rate 72 /min Marshall [facility] Work Phone: 04-21-2022 08:29-0400 Respiratory rate 16 /min Marshall [facility] Work Phone: 04-21-2022 08:29-0400 SaO2% (BldA) [Mass fraction] 96 % MD Gee [facility] Work Phone: 04-21-2022 08:29-0400 Systolic blood pressure 142 mm[Hg] Marshall [facility] Work Phone: 03-24-2022 09:33-0400 Body height 177.8 cm [facility] Work Phone: 03-24-2022 09:33-0400 Body mass index (BMI) [Ratio] 30.5 kg/m2 Marshall [facility] Work Phone: 03-24-2022 09:33-0400 Body temperature 98.7 [degF] Marshallstefany Bear [facility] Work Phone: 03-24-2022 09:33-0400 Body weight 96.61 kg Marshallstefany Bear [facility] Work Phone: 03-24-2022 09:33-0400 Diastolic blood pressure 78 mm[Hg] [facility] Work [facility]: 03-24-2022 09:33-0400 Heart rate 76 /min [facility] Work Phone: 03-24-2022 09:33-0400 Respiratory rate 14 /min MD Gee Chema [facility] Work Phone: 03-24-2022 09:33-0400 SaO2% (BldA) [Mass fraction] 99 % MD Gee [facility] Work Phone: 03-24-2022 09:33-0400 Systolic blood pressure 126 mm[Hg] Marshall [facility] Work Phone: 03-22-2022 06:49-0400 Body temperature 97.8 [degF] Marshall [facility] Work Phone: 03-22-2022 06:49-0400 Diastolic blood pressure 70 mm[Hg] [facility] Work [facility]: 03-22-2022 06:49-0400 Heart rate 81 /min MD Marshall Bear [facility] Work Phone: 03-22-2022 06:49-0400 Respiratory rate 15 /min Marshallstefany GlassChe[facility] Work Phone: 03-22-2022 06:49-0400 SaO2% (BldA) [Mass fraction] 99 % [facility] Work Phone: 03-22-2022 06:49-0400 Systolic blood pressure 118 mm[Hg] MD Marshall Bear [facility] Work Phone: 03-09-2022 14:57-0400 Body mass index (BMI) [Ratio] 30.5 kg/m2 Marshall [facility] Work Phone: 03-09-2022 14:57-0400 Body weight 96.61 kg Marshallstefany Bear [facility] Work Phone: 03-01-2022 13:16-0400 Body temperature 97.6 [degF] Marshall [facility] Work Phone: 03-01-2022 13:16-0400 Diastolic blood pressure 84 mm[Hg] Marshall [facility] Work Phone: 03-01-2022 13:16-0400 Heart rate 62 /min Marshall Chema [facility] Work Phone: 03-01-2022 13:16-0400 Respiratory rate 16 /min Marshall [facility] Work Phone: 03-01-2022 13:16-0400 SaO2% (BldA) [Mass fraction] 97 % Marshall [facility] Work Phone: 03-01-2022 13:16-0400 Systolic blood pressure 128 mm[Hg] [facility] Work Phone: 03-01-2022 10:13-0400 Body height 177.8 cm [facility] Work Phone: 03-01-2022 10:13-0400 Body mass index (BMI) [Ratio] 30.7 kg/m2 Marshall [facility] Work Phone: 03-01-2022 10:13-0400 Body weight 97 kg MD Marshall Bear [facility] Work Phone: 10-04-2021 08:01-0500 Body height 177.[address] Weston Gutierrez Work Phone: [facility] Work Phone: 10-04-2021 08:01-0500 Body mass index (BMI) [Ratio] 30.8 kg/m2 Dr. Weston Gutierrez Work Phone: [facility] Work Phone: 10-04-2021 08:01-0500 Body temperature 96.8 [degF] Dr. Weston Gutierrez Work Phone: [facility] Work Phone: 10-04-2021 08:01-0500 Body weight 97.[address] Weston Gutierrez Work Phone: [facility] Work Phone: 10-04-2021 08:01-0500 Diastolic blood pressure 68 mm[Hg] Dr. Weston Gutierrez Work Phone: [facility] Work Phone: 10-04-2021 08:01-0500 Heart rate 78 /min Dr. Weston Gutierrez Work Phone: [facility] Work Phone: 10-04-2021 08:01-0500 Respiratory rate 16 /min Dr. Weston Gutierrez Work Phone: [facility] Work Phone: 10-04-2021 08:01-0500 SaO2% (BldA) [Mass fraction] 98 % Dr. Weston Gutierrez Work Phone: [facility] Work Phone: 10-04-2021 08:01-0500 Systolic blood pressure 120 mm[Hg] Dr. Weston Gutierrez Work Phone: [facility] Work Phone: 10-01-2021 09:24-0500 Body mass index (BMI) [Ratio] 30.7 kg/m2 Dr. Weston Gutierrez Work Phone: [facility] Work Phone: 10-01-2021 09:24-0500 Body weight 97.[address] Weston Gutierrez Work Phone: [facility] Work Phone: 10-01-2021 09:24-0500 Diastolic blood pressure 71 mm[Hg] Dr. Weston Gutierrez Work Phone: [facility] Work Phone: 10-01-2021 09:24-0500 Heart rate 70 /min Dr. Weston Gutierrez Work Phone: [facility] Work Phone: 10-01-2021 09:24-0500 Respiratory rate 18 /min Dr. Weston Gutierrez Work Phone: [facility] Work Phone: 10-01-2021 09:24-0500 Systolic blood pressure 121 mm[Hg] Dr. Weston Gutierrez Work Phone: [facility] Work Phone: Encounters Encounter Date Encounter Type Care Provider Facility Start: 03-21-2025 ambulatory [facility] Facility :[facility] Start: 03-06-2025 End: 03-06-[address] Masrhall Bear MD Work Phone: -Laboratory Start: 03-06-2025 End: 03-06-[address] Juan Carlos Gagnon MD -Laboratory Work Phone: Start: 03-05-2025 ambulatory Marshall Bear Facility :[facility] Start: 03-05-2025 Registered Referred Rosa Maria STRONG -Cardiovascular Services Work Phone: Start: 03-05-2025 End: 03-06-[address] Marshall Bear MD Work Phone: [facility] Start: 03-05-2025 End: 03-05-[address] Tarik Wilkinson MD -[facility] Work Phone: Start: 03-05-2025 End: 03-05-2025 ambulatory Marshall Bear Facility:[facility] Start: 02-25-2025 End: 02-25-2025 Patient encounter procedure Rosa Maria Cuevas PA -[facility] Work Phone: Start: 02-25-2025 End: 02-25-[address] Marshall Bear MD Work Phone: -[facility] Start: 01-31-2025 End: 01-31-[address] Bjorn Bradshaw MD -[facility] Work Phone: Start: 01-31-2025 End: 01-31-[address] Marshall Bear MD Work Phone: [facility] Work Phone: Start: 01-28-2025 End: 01-28-[address] Marshall Bear MD Work Phone: [facility] Work Phone: Start: 01-28-2025 End: 01-28-[address] Marshall Bear MD -Laboratory [facility] Start: 01-27-2025 End: 01-27-[address] Marshall Bear MD -[facility] Work Phone: Start: 01-27-2025 End: 01-28-[address] Marshall Bear MD Work Phone: [facility] Work Phone: Start: 10-04-2024 End: 10-04-[address] Talat Church MD -[facility] Work Phone: Start: 10-04-2024 End: 10-04-2024 ambulatory Marshall Bear Facility:[facility] Start: 09-19-2024 End: 09-19-2024 ambulatory Marshall Bear Facility:[facility] Start: 09-19-2024 End: 09-19-2024 ambulatory Marshall Bear Facility:[facility] Start: 09-10-2024 End: 09-10-2024 ambulatory Marshall Bear Facility:[facility] Start: 08-09-2024 End: 08-09-2024 ambulatory Julio Daniel Facility:[facility] Start: 07-23-2024 End: 07-23-2024 ambulatory Marshall Bear Facility:[facility] Start: 07-18-2024 End: 07-19-2024 ambulatory Marshall Bear Facility:[facility] Start: 07-17-2024 [facility] Start: 07-02-2024 End: 07-02-2024 ambulatory Marshall Bear Facility:[facility] Start: 06-20-2024 ambulatory Marshall Bear Facility :[facility] Start: 06-20-2024 End: 06-20-2024 ambulatory [facility] Facility:[facility] Start: 05-30-2024 End: 05-30-2024 ambulatory Marshall Bear Facility:[facility] Start: 05-27-2024 End: 05-27-2024 ambulatory Marshall Bear Facility:[facility] Start: 05-16-2024 ambulatory Marshall Bear Facility :[facility] Start: 05-15-2024 End: 05-16-2024 ambulatory Marshall Bear Facility:[facility] Start: 04-29-2024 End: 04-29-2024 ambulatory Marshall Bear Facility:[facility] Start: 04-29-2024 End: 04-29-2024 ambulatory Marshall Bear Facility:[facility] Start: 04-24-2024 End: 04-24-2024 ambulatory Marshall Bear Facility:[facility] Start: 04-18-2024 End: 04-18-2024 ambulatory Marshall Bear Facility:[facility] Start: 04-16-2024 End: 04-16-2024 ambulatory Marshall Bear Facility:[facility] Start: 03-28-2024 End: 03-29-2024 ambulatory Marshall Bear Facility:[facility] Start: 03-17-2024 ambulatory Marshall Bear Facility :[facility] Start: 03-17-2024 End: 03-21-2024 Evaluation and management of inpatient Marshall Bear Facility:[facility] Start: 12-12-2023 Dr. Marshall Gates hner Work Phone: [facility] Work Phone: Start: 12-11-2023 Dr. Marshall Gates hner Work Phone: [facility] Work Phone: Start: 12-10-2023 End: 12-12-2023 Evaluation and management of inpatient Dr. Marshall Bear Work Phone: [facility] Work Phone: Start: 12-10-2023 End: 12-12-2023 Dr. Marshall Bear Work Phone: [facility]-Medical Surgical 3 Work Phone: Start: 11-27-2023 End: 12-12-[address] Marshall Bear Work Phone: [facility] Work Phone: Start: 11-27-2023 End: 12-12-2023 Dr. Marshall Bear Work Phone: [facility]-Laboratory, Specimen Work Phone: Start: 11-20-2023 End: 12-12-[address] Marshall Bear Work Phone: [facility] Work Phone: Start: 11-20-2023 End: 12-12-2023 Dr. Marshall Bear Work Phone: [facility]-Laboratory, Specimen Work Phone: Start: 11-10-2023 End: 11-11-[address] Marshall Bear Work Phone: [facility] Work Phone: Start: 11-10-2023 End: 11-11-2023 Dr. Marshall Bear Work Phone: [facility]-Home Health Lab Start: 11-09-2023 End: 11-11-[address] Marshall Bear Work Phone: [facility] Work Phone: Start: 11-09-2023 End: 11-11-2023 Dr. Marshall Bear Work Phone: [facility]-Home Health Lab Start: 11-08-2023 End: 11-08-2023 Dr. Marshall Bear Work Phone: [facility] Work Phone: Start: 11-07-2023 End: 11-07-[address] Marshall Bear Work Phone: [facility] Work Phone: Start: 11-07-2023 End: 11-07-2023 Dr. Marshall Bear Work Phone: [facility]-Medical Out Work Phone: Start: 11-06-2023 End: 11-12-[address] Marshall Bear Work Phone: [facility] Work Phone: Start: 11-06-2023 End: 11-12-2023 Dr. Marshall Bear Work Phone: [facility]-Laboratory, Specimen Work Phone: Start: 11-01-2023 Dr. Marshall Gates hner Work Phone: [facility] Start: 11-01-2023 End: 11-01-2023 Emergency department patient visit Dr. Marshall Bear Work Phone: [facility] Work Phone: Start: 11-01-2023 End: 11-01-2023 Dr. Marshall Bear Work Phone: [facility]-Emergency Department Work Phone: Start: 10-30-2023 End: 11-12-[address] Marshall Bear Work Phone: [facility] Work Phone: Start: 10-30-2023 End: 11-12-2023 Dr. Marshall Bear Work Phone: [facility]-Laboratory, Specimen Work Phone: Start: 10-26-2023 Dr. Marshall Gates hner Work Phone: [facility] Start: 10-25-2023 Dr. Marshall Gates hner Work Phone: [facility] Work Phone: Start: 10-25-2023 Dr. Marshall Gates hner Work Phone: [facility] Start: 10-24-2023 Dr. Marshall Gates hner Work Phone: [facility] Work Phone: Start: 10-23-2023 Dr. Marshall Gates hner Work Phone: [facility] Start: 10-23-2023 Dr. Marshall Gates hner Work Phone: [facility] Start: 10-23-2023 Dr. Marshall Gates hner Work Phone: [facility] Start: 10-22-2023 Dr. Marshall Gates hner Work Phone: [facility] Work Phone: Start: 10-21-2023 End: 10-26-2023 Evaluation and management of inpatient Dr. Marshall Bear Work Phone: [facility] Work Phone: Start: 10-21-2023 End: 10-26-2023 Dr. Marshall Bear Work Phone: [facility]-Progressive Care Unit Work Phone: Start: 10-16-2023 Dr. Marshall Gates hner Work Phone: [facility] Start: 10-11-2023 End: 10-11-[address] Marshall Bear Work Phone: [facility] Work Phone: Start: 10-11-2023 End: 10-11-2023 Dr. Marshall Bear Work Phone: [facility]-Laboratory, Specimen Work Phone: Start: 10-11-2023 End: 10-11-2023 Subsequent hospital visit by physician eBn Marshall MD Work Phone: Ambulatory Surgery Comment on above: Epigastric pain [R10 .13] Start: 10-06-2023 End: 10-06-[address] Marshall eBar Work Phone: [facility] Work Phone: Start: 10-06-2023 End: 10-06-2023 Dr. Marshall Bear Work Phone: [facility] Start: 10-01-2023 End: 10-01-2023 Emergency department patient visit Dr. Marshall Bear Work Phone: [facility] Work Phone: Start: 10-01-2023 End: 10-01-2023 Dr. Marshall Bear Work Phone: [facility]-Emergency Department Work Phone: Start: 09-28-2023 Orders Only Jose Juan richardson MD Work Phone: General Surgery Comment on above: Epigastric pain (Kesha dayron Dx) Start: 09-27-2023 End: 09-27-[address] Marshall Bear Work Phone: [facility] Work Phone: Start: 09-27-2023 End: 09-27-2023 Dr. Marshall Bear Work Phone: [facility] Work Phone: Start: 09-26-2023 End: 09-26-[address] Marshall Bear Work Phone: [facility] Work Phone: Start: 09-26-2023 End: 09-26-2023 Dr. Marshall Bear Work Phone: [facility]-Laboratory, Specimen Work Phone: Start: 09-26-2023 End: 09-26-2023 Dr. Marshall Bear Work Phone: [facility] Work Phone: Start: 09-13-2023 End: 09-13-2023 Dr. Marshall Bear Work Phone: [facility] Work Phone: Start: 08-24-2023 End: 08-24-[address] Marshall Bear Work Phone: [facility]opaedic [facility] Work Phone: Start: 08-24-2023 End: 08-24-2023 Dr. Marshall Bear Work Phone: [facility] Work Phone: Start: 08-21-2023 End: 08-21-[address] Marshall Bear Work Phone: [facility] Work Phone: Start: 08-21-2023 End: 08-21-[address] Marshall Bear Work Phone: [facility] [place] Work Phone: Start: 08-21-2023 End: 08-21-2023 Dr. Marshall Bear Work Phone: [facility] [place] Work Phone: Start: 08-17-2023 End: 08-17-[address] Marshall Bear Work Phone: [facility] Work Phone: Start: 08-17-2023 End: 08-17-2023 Dr. Marshall Bear Work Phone: [facility] Work Phone: Start: 08-14-2023 End: 08-14-2023 Emergency department patient [facility] Dr. Marshall [facility] Start: 08-14-2023 End: 08-14-2023 Dr. Marshall [facility] Work [facility]: Start: 08-04-2023 End: 08-04-2023 Emergency department patient visit Dr. Marshall Bear Work Phone: [facility]-Emergency Department Work Phone: Start: 08-04-2023 End: 08-04-2023 Dr. Marshall Bear Work Phone: [facility]-Emergency Department Work Phone: Start: 07-31-2023 End: 07-31-[address] Marshall Bear Work Phone: [facility] Work Phone: Start: 07-31-2023 End: 07-31-2023 Dr. Marshall Bear Work Phone: [facility] Work Phone: Start: 07-28-2023 End: 07-28-[address] Marshall Bear Work Phone: [facility] Work Phone: Start: 07-28-2023 End: 07-28-2023 Dr. Marshall Bear Work Phone: [facility] Work Phone: Start: 07-20-2023 Non-patient / Non-visit Dr. Gracy Bear Work Phone: [facility] Start: 07-20-2023 Dr. Marshall Gates hner Work Phone: [facility] Start: 07-19-2023 Non-patient / Non-visit Dr. Gracy Bear Work Phone: [facility] Work Phone: Start: 07-19-2023 Dr. Marshall Gates hner Work Phone: [facility] Work Phone: Start: 07-19-2023 Non-patient / Non-visit Dr. Gracy Bear Work Phone: [facility] Start: 07-19-2023 Dr. Marshall Gates hner Work Phone: [facility] Start: 07-18-2023 Non-patient / Non-visit Dr. Gracy Bear Work Phone: [facility] Work Phone: Start: 07-18-2023 Dr. Marshall Gates hner Work Phone: [facility] Work Phone: Start: 07-18-2023 Non-patient / Non-visit [facility] Gr[facility] Start: 07-18-2023 End: 07-20-2023 Evaluation and management of inpatient Dr. Marshall Bear [facility] Work Phone: Start: 07-18-2023 End: 07-20-2023 Dr. Marshall [facility] Work Phone: Start: 07-17-2023 Non-patient / Non-visit Dr. Gracy Bear Work Phone: [facility] Start: 07-17-2023 Dr. Marshall aguirre Work Phone: [facility] Start: 07-10-2023 End: 07-10-[address] Marshall Bear Work Phone: [facility] Work Phone: Start: 07-10-2023 End: 07-10-2023 Dr. Marshall Bear Work Phone: [facility] Work Phone: Start: 06-01-2023 End: 06-01-[address] Marshall Bear Work Phone: [facility] Work Phone: Start: 05-27-2023 End: 05-27-[address] Marshall Bear Work Phone: [facility] Work Phone: Start: 05-27-2023 End: 05-27-[address] Marshall Bear Work Phone: [facility] Work Phone: Start: 05-19-2023 End: 05-19-[address] Marshall Bear Work Phone: [facility]-Laboratory, Specimen Work Phone: Start: 05-19-2023 End: 05-19-[address] Marshall Bear Work Phone: [facility] Work Phone: Start: 05-15-2023 End: 05-15-2023 Admission to same day surgery center Dr. Marshall Bear Work Phone: [facility] Day [facility] Start: 05-15-2023 End: 05-15-[address] Marshall Bear Work Phone: [facility] Work Phone: Start: 05-12-2023 End: 05-12-[address] Marshall Bear Work Phone: [facility] Work Phone: Start: 05-11-2023 End: 05-11-2023 Emergency department patient visit Dr. Marshall Bear Work Phone: [facility]-Emergency Department Work Phone: Start: 05-11-2023 End: 05-11-[address] Marshall Bear Work Phone: [facility] [place] Work Phone: Start: 05-10-2023 End: 05-10-2023 Emergency department patient visit Dr. Marshall [facility] Start: 05-06-2023 End: 05-06-[address] Marshall Bear Work Phone: [facility] Work Phone: Start: 04-20-2023 End: 04-20-[address] Marshall Bear Work Phone: [facility] Work Phone: Start: 04-18-2023 Refill Jose Juan richardson MD Work Phone: General Surgery Comment on above: Refill Request Start: 04-14-2023 End: 04-14-[address] Marshall Bear Work Phone: [facility] Work Phone: Start: 04-14-2023 End: 04-14-[address] Marshall Bear Work Phone: [facility]-Physical Therapy Work Phone: Start: 03-31-2023 End: 03-31-[address] Marshall Bear Work Phone: [facility] Work Phone: Start: 03-21-2023 End: 03-21-2023 ambulatory MD Marshall HARKINS [facility] Work Phone: Start: 03-21-2023 End: 03-21-2023 Patient encounter procedure MD Marshall HARKINS [facility] Work Phone: Start: 02-09-2023 End: 02-09-2023 Patient encounter procedure MD Marshall HARKINS [facility] Work Phone: Start: 01-18-2023 Non-patient / Non-visit MD Kristen HARKINS [facility] Start: 01-18-2023 End: 01-18-2023 Patient encounter procedure MD Marshall HARKINS [facility]Cardiovascula [facility] Services Work Phone: Start: 12-20-2022 End: 12-20-2022 Patient encounter procedure MD Marshall HARKINS [facility] Work Phone: Start: 12-16-2022 End: 12-16-2022 Patient encounter procedure MD Marshall HARKINS [facility] Work Phone: Start: 11-18-2022 End: 11-19-2022 ambulatory MARSHALL BEAR Facility:[facility] Start: 11-18-2022 End: 11-18-2022 Patient encounter procedure Edilia Hunter PA-C Work Phone: General Surgery Comment on above: Calculus of gallblad wilmar with chronic cholecystitis without obstruction (Primary Dx); Back spasm Start: 11-14-2022 Telephone encounter Jose Juan Pena MD Work Phone: General Surgery Comment on above: Post op complication s Start: 11-14-2022 End: 11-14-2022 Emergency department patient visit MD Marshall HARKINS [facility]-Emergency Department Start: 11-11-2022 End: 11-11-2022 ambulatory JOSE JUAN PENA Facility:[facility] Start: 11-09-2022 Telephone encounter Nitish Norris APRN.CNP Work Phone: Pre Anesthesia Comment on above: Request Outside [facility] Start: 11-04-2022 End: 11-05-2022 ambulatory MARSHALL BEAR Facility:[facility] Start: 11-04-2022 Encounter for other preprocedural examination MARSHALL BEAR [facility] Start: 11-04-2022 End: 11-04-[address] [facility] Start: 11-04-2022 End: 11-04-2022 ambulatory [facility] 1 Work Phone: Pre Anesthesia Comment on above: Pre-operative examin ation (Primary Dx); Other hyperlipidemia; Coronary artery disease involving [place] coronary artery of [place] heart without angina pectoris; BPH with obstruction/lower urinary tract symptoms; Controlled type 2 diabetes mellitus without complication, without long-term current use of insulin (HCC); COPD with chronic bronchitis (HCC); Gastroesophageal reflux disease with esophagitis, unspecified whether hemorrhage; Bilateral hearing loss, unspecified hearing loss type; Obesity, Class I, BMI 30-34.9 Start: 11-04-2022 End: 11-04-2022 Preprocedural examination done [facility] 1 Work Phone: Pre Anesthesia Start: 11-04-2022 End: 11-04-2022 Patient encounter procedure MD Marshall HARKINS [facility] Start: 10-27-2022 End: 10-27-2022 Patient encounter procedure MD Marshall HARKINS [facility] [place] Start: 10-20-2022 Telephone encounter Jose Juan Pena MD Work Phone: General Surgery Comment on above: Results ([facility] Start: 10-20-2022 End: 10-21-2022 ambulatory JOSE JUAN PENA Facility:[facility] Start: 10-20-2022 End: 10-20-2022 Patient encounter procedure Jose Juan Pena MD Work Phone: General Surgery Comment on above: Calculus of gallblad wilmar without cholecystitis without obstruction (Primary Dx); RUQ pain Start: 10-07-2022 End: 10-08-2022 ambulatory Edilia Hunter Facility:[facility] Start: 10-07-2022 End: 10-07-2022 Patient encounter procedure Edilia Hunter PA-C Work Phone: General Surgery Comment on above: Diverticulosis (Prim jeaneth Dx); History of colonic polyps; Gastritis and duodenitis Start: 09-27-2022 End: 09-27-2022 Subsequent hospital visit by physician Jose Juan Pena MD Work Phone: Ambulatory Surgery Comment on above: History of colonic p olyps [Z86.010] Start: 09-16-2022 Telephone encounter Jose Juan Pena MD Work Phone: General Surgery Comment on above: Add EGD Start: 09-12-2022 End: 09-12-2022 Emergency department patient visit MD Marshall Bear [facility]Emergency Department Start: 09-12-2022 End: 09-12-2022 Patient encounter procedure MD Marshall Bear [facility] [place] Start: 08-09-2022 Telephone encounter Edilia royal PA-C Work Phone: General Surgery Comment on above: 09/27/2022 colon asc; Patient Update Start: 08-09-2022 End: 08-09-2022 Patient encounter procedure Edilia Graf MULTANI Work Phone: General Surgery Comment on above: Encounter for screen ing for malignant neoplasm of colon (Primary Dx); Personal history of colonic polyps Start: 08-02-2022 End: 08-02-2022 [facility] Start: 07-20-2022 End: 07-20-2022 [facility] Start: 07-11-2022 End: 07-11-2022 Patient encounter procedure [facility] Start: 07-04-2022 End: 07-04-2022 Patient encounter procedure [facility] Start: 06-27-2022 End: 06-27-2022 Patient encounter procedure MD Marshall Glasschner [facility] Start: 06-20-2022 End: 06-20-2022 [facility] Start: 06-20-2022 End: 06-20-2022 ambulatory MD Marshall Bear [facility] Work Phone: Start: 04-21-2022 End: 04-21-2022 [facility] Start: 04-21-2022 End: 04-21-2022 Patient encounter procedure MD Marshall Bear [facility]Laboratory Start: 04-21-2022 End: 04-21-2022 Patient encounter procedure MD Marshall Bear [facility] [place] Start: 04-11-2022 End: 04-11-2022 Patient encounter procedure MD Marshall Bear [facility] Start: 03-24-2022 End: 03-24-2022 Patient encounter procedure MD Marshall Bear [facility] Radiology Start: 03-24-2022 End: 03-24-2022 Patient encounter procedure MD Marshall Bear [facility] Start: 03-22-2022 End: 03-22-2022 Patient encounter procedure MD Marshall Bear [facility] Start: 03-14-2022 End: 03-14-2022 Patient encounter procedure MD Marshall Bear [facility] Start: 03-09-2022 End: 03-09-2022 [facility] encounter [facility] Start: 03-01-2022 Non-patient / Non-visit MD Marshall george [facility] Start: 03-01-2022 End: 03-01-2022 Admission to same day surgery center MD Marshall Bear [facility] Start: 02-16-2022 End: 02-16-2022 Patient encounter procedure MD Marshall Bear [facility] Start: 02-11-2022 End: 02-11-2022 Patient encounter procedure MD Marshall Bear [facility] Start: 02-04-2022 End: 02-04-2022 Patient encounter procedure MD Marshall Bear [facility] Start: 11-15-2021 End: 11-15-[address] Weston Gutierrez Work Phone: [facility] Start: 10-04-2021 End: 10-04-[address] Weston Gutierrez Work Phone: [facility], [place] Start: 10-04-2021 End: 10-04-[address] Weston Gutierrez Work Phone: [facility] Start: 10-01-2021 End: 10-01-[address] Weston Gutierrez Work Phone: [facility] Start: 08-10-[address] Weston Gutierrez [facility] Start: 07-29-[address] Weston Gutierrez [facility] Start: 09-19-2017 End: 09-19-2017 [facility] Procedures Date Procedure Procedure Detail Performing Clinician Start: 03-06-2025 Methadone measurement, urine Dr. Marshall rowe MD Work Phone: Start: 03-05-2025 MRI of lumbar spine with contrast Dr. Gracy Bear MD Work Phone: Start: 03-05-2025 MRI of cervical spine Dr. Marshall Bear MD Work Phone: Start: 01-31-2025 X-ray of lumbosacral spine Dr. Marshall george MD Work Phone: Start: 12-11-2023 MRI of lumbar spine with contrast Dr. Gracy Bear Work Phone: Start: 12-09-2023 Computerized axial tomography of lumbar spine with contrast Dr. Marshall Bear Work Phone: Start: 10-25-[address] Marshall villalba Work Phone: Start: 10-25-[address] Marshall Bear Work Phone: Start: 10-25-[address] Marshall Bear Work Phone: Start: 10-25-2023 Investigation of transfusion reaction Dr. Marshall Bear Work Phone: Start: 10-25-2023 End: 10-25-2023 Dr. Marshall Bear Work Phone: Start: 10-24-2023 CT of lumbar spine Dr. Marshall Bear Work Phone: Start: 10-23-2023 MRI of brain without contrast Dr. Marshall Bear Work Phone: Start: 10-23-2023 MRI of lumbar spine Dr. Marshall Bear Work Phone: Start: 10-23-2023 Plain chest X-ray Dr. Marshall Bear Work Phone: Start: 10-22-[address] Marshall Bear Work Phone: Start: 10-22-2023 Dr. Marshall Bear Work Phone: Start: 10-21-2023 Plain chest X-ray Dr. Marshall Bear Work Phone: Start: 10-21-2023 CT angiography of head and neck Dr. Alexandra Bear Work Phone: Start: 10-21-2023 CT of head without contrast Dr. Marshall villalba Work Phone: Start: 10-11-2023 Esophagogastroduodenoscopy transoral diagnostic Jose Juan Pena MD Work Phone: Start: 10-01-2023 Computed tomography of abdomen and pelvis with contrast Dr. Marshall Bear Work Phone: Start: 09-26-[address] Marshall Bear Work Phone: Start: 08-24-2023 X-ray of lumbar spine, two or three views Dr. Marshall Bear Work Phone: Start: 08-14-2023 Computerized axial tomography of lumbar spine with contrast Dr. Marshall Bear Work Phone: Start: 08-14-2023 CT angiography of chest with contrast Dr. Marshall Bear Work Phone: Start: 08-14-2023 CT of head without contrast Dr. Marshall villalba Work Phone: Start: 08-14-2023 Plain chest X-ray Dr. Marshall Bear Work Phone: Start: 08-14-2023 Bacteria identified in Blood by Culture Dr. Marshall Bear Work Phone: Start: 08-14-2023 SARS-CoV-2 & FLU Antigen (Rapid) Dr. Kristen Bear Work Phone: Start: 08-14-[address] Marshall Bear Work Phone: Start: 08-14-[address] Marshall Bear Work Phone: Start: 08-14-2023 Dr. Marshall Bear Work Phone: Start: 08-04-2023 Computerized axial tomography of lumbar spine with contrast Dr. Marshall Bear Work Phone: Start: 07-18-2023 End: 07-18-[address] Marshall Bear Work Phone: Start: 07-18-2023 Laminectomy,Lumbar Micro Decompression (Left) Dr. Marshall Bear Work Phone: Start: 07-18-2023 Dr. Marshall Bear Work Phone: Start: 07-05-2023 Nasal Screen MRSA/MSSA Dr. Marshall cao Work Phone: Start: 07-05-2023 Dr. Marshall Bear Work Phone: Start: 05-27-2023 MRI of lumbar spine with contrast Dr. Gracy Bear Work Phone: Start: 05-19-[address] Marshall Bear Work Phone: Start: 05-15-2023 Local anesthetic sacral epidural block Dr. Marshall Bear Work Phone: Start: 05-15-2023 Injection of spinal epidural space Dr. Megan Bear Work Phone: Start: 05-15-2023 Injection using fluoroscopic guidance Dr. Marshall Bear Work Phone: Start: 05-12-2023 X-ray of lumbar spine, two or three views Dr. Marshall Bear Work Phone: Start: 05-11-2023 CT of lumbar spine Dr. Marshall Bear Work Phone: Start: 05-06-2023 MRI of cervical spine Dr. Marshall Bear Work Phone: Start: 03-21-2023 MRI of brain with contrast MD Marshall hor [facility] Start: 02-09-2023 X-ray of cervical spine MD Marshall cao [facility] Start: 01-18-2023 Cardiovascular stress test using pharmacologic stress agent MD Marshall Bear [facility] Start: 11-14-2022 Computed tomography of abdomen and pelvis with intravenous contrast MD Marshall Bear [facility] Start: 09-27-2022 Level iv surg pathology gross&microscopic exam Jose Juan Pena MD Work Phone: Start: 09-27-2022 Colonoscopy flx dx w/collj spec when pfrmd Edilia Hunter PA-C Work Phone: Start: 09-27-2022 Esophagogastroduodenoscopy transoral diagnostic Jose Juan Pena MD Work Phone: Start: 09-27-2022 Gluc bld gluc mntr dev cleared fda spec home use Jose Juan Pena MD Work Phone: Start: 09-27-2022 Colonoscopy Edilia Hunter PA-C Work Phone: Start: 09-12-2022 Computed tomography of abdomen and pelvis with intravenous contrast MD Marshall Bear Start: 06-20-2022 Local anesthetic sacral epidural block MD Marshall Bear Start: 06-20-2022 Injection of spinal epidural space MD Gracy Bear Start: 06-20-2022 Injection using fluoroscopic guidance MD Marshall Bear Start: 03-24-2022 Plain chest X-ray MD Marshall Bear Start: 03-01-2022 Arthroscopy of knee MD Marshall Bear Start: 02-11-2022 MRI of joint of lower extremity MD Marshall Bear Start: 02-04-2022 Radiologic examination of knee MD Marshall Bear Start: 08-10-2021 Plain chest X-ray Dr. Weston Gutierrez Work Phone: Start: 08-10-2021 Influenza Types A,B Direct FA ([facility]) Dr. Weston Gutierrez Work Phone: Start: 08-10-2021 End: 08-10-2021 Respiratory syncytial virus antigen assay Dr. Weston Gutierrez Work Phone: Start: 07-29-2021 Influenza Types A,B Direct FA ([facility]) Dr. Weston Gutierrez Work Phone: Start: 07-29-2021 End: 07-29-2021 Respiratory syncytial virus antigen assay Dr. Weston Gutierrez Work Phone: Start: 06-21-2017 Colonoscopy Edilia Hunter PA-C Work Phone: Start: 09-14-2011 History of coronary artery bypass grafting H/O coronary artery bypass surgery Rosa Maria STRONG Comment on above: CABG x 3 MORGAN-LAD, SVG-LCx, SVG-Ramus 09/14/11 History of coronary artery bypass grafting Hx of CABG Dr. Marshall Bear MD Work Phone: Urine culture MD Marshall bravo Plan of Treatment Date Care Activity Detail Author Start: 09-27-2027 Colonoscopy COLONOSCOPY [facility] Start: 09-27-2027 COLORECTAL CANCER SCREENING COLORECTAL CANCER SCREENING [facility] Start: 09-27-2027 Screening for malign ant neoplasm of colon [facility] Start: 03-06-2025 Procedure [facility] Start: 02-25-2025 Evaluation of diagno stic study results [facility] Start: 01-31-2025 X-ray of lumbosacral spine L/S Spine Min 4 Views [facility] Start: 01-31-2025 XR Spine Lumbar and Sacrum GE 4 Views [facility] Start: 12-12-2023 Patient discharge [facility] Start: 12-10-2023 Consultation [facility] Start: 12-10-2023 Care regimes management [facility] Start: 12-10-2023 Notification of physician [facility] Start: 12-10-2023 [facility] Start: 12-10-2023 Following clinical pathway protocol [facility] Start: 12-10-2023 Ambulation without limitation [facility] Start: 12-10-2023 Assessment of risk o f venous thromboembolism [facility] Start: 12-10-2023 Insertion of cathete r into peripheral vein [facility] Start: 12-10-2023 Providing care accor ding to standard [facility] Start: 12-10-2023 Referral to occupati onal therapist [facility] Start: 12-10-2023 Referral to service [facility] Start: 12-09-2023 End: 12-10-2023 [facility] Start: 12-10-2023 Admission procedure [facility] Start: 12-09-2023 End: 12-09-2023 Blood culture [facility] Start: 11-08-2023 Patient referral [facility] Work Phone: Start: 11-01-2023 [facility] Start: 10-26-2023 Patient discharge [facility] Start: 10-26-2023 Referral to service [facility] Start: 10-25-2023 Bone marrow biopsy, needle or trocar [facility] Start: 10-25-2023 End: 10-26-2023 [facility] Start: 10-25-2023 Catheterization of vein [facility] Start: 10-25-2023 Vital signs measurements [facility] Start: 10-25-2023 Consultation [facility] Start: 10-25-2023 Care planning and pr oblem solving actions [facility] Start: 10-25-2023 [facility] Start: 10-22-2023 Consultation [facility] Start: 10-22-2023 End: 10-22-2023 Blood culture [facility] Start: 10-22-2023 End: 10-22-2023 [facility] Start: 10-21-2023 Following clinical pathway protocol [facility] Start: 10-21-2023 Aspiration precautions [facility] Start: 10-21-2023 Assessment of risk o f venous thromboembolism [facility] Start: 10-21-2023 Cardiac monitoring [facility] Start: 10-21-2023 Care regimes management [facility] Start: 10-21-2023 Catheterization of vein [facility] Start: 10-21-2023 Elevation of head of bed [facility] Start: 10-21-2023 Exercises [facility] Start: 10-21-2023 Fall prevention [facility] Start: 10-21-[address] anned interventions [facility] Start: 10-21-2023 Inhalation therapy procedure [facility] Start: 10-21-2023 Insertion of cathete r into peripheral vein [facility] Start: 10-21-2023 Introduction of urin jeaneth catheter [facility] Start: 10-21-2023 Measuring intake and output [facility] Start: 10-21-2023 Notification of physician [facility] Start: 10-21-2023 Patient referral to dietitian [facility] Start: 10-21-2023 Providing care accor ding to standard [facility] Start: 10-21-2023 Provision of activit y privileges [facility] Start: 10-21-2023 Referral to occupati onal therapist [facility] Start: 10-21-2023 Referral to service [facility] Start: 10-21-2023 Speech therapy assessment [facility] Start: 10-21-2023 Tobacco use cessatio n education [facility] Start: 10-21-2023 [facility] Start: 10-21-2023 Verification routine [facility] Start: 10-21-2023 Admission procedure [facility] Start: 10-21-2023 Hospital admission, emergency, from emergency room, medical nature [facility] Start: 10-21-2023 Oxygen therapy [facility] Start: 10-21-2023 End: 10-21-2023 [facility] Start: 10-21-2023 Patient referral to dietitian [facility] Start: 10-16-2023 Patient referral [facility] Work Phone: Start: 10-01-2023 [facility] Start: 08-24-2023 X-ray of lumbar spin e, two or three views Lumbar Spine 2 or 3 Views [facility] Start: 08-24-2023 XR Lumbar spine 2 or 3 Views [facility] Start: 08-14-2023 [facility] Start: 08-14-2023 [facility] Start: 08-14-2023 End: 08-14-2023 Blood culture [facility] Start: 08-14-2023 Advance Directive Discussion Advance Directive Discussion [facility] Start: 08-14-2023 Bacteria identified in Blood by Culture Blood Culture [facility] Start: 08-14-2023 Bacteria identified in Urine by Culture Urine Culture [facility] Start: 08-14-2023 Depression Assessment Depression Ass essment [facility] Start: 08-04-2023 [facility] Start: 07-20-2023 Patient discharge [facility] Start: 07-20-2023 Referral to service [facility] Start: 07-18-2023 Care regimes management [facility] Start: 07-18-2023 Notification of physician [facility] Start: 07-18-2023 [facility] Start: 07-18-2023 Following clinical pathway protocol [facility] Start: 07-18-2023 Application of intermittent pneumatic compression device [facility] Start: 07-18-2023 Bedrest [facility] Start: 07-18-2023 Catheterization of vein [facility] Start: 07-18-2023 Consultation [facility] Start: 07-18-2023 Elevation of head of bed [facility] Start: 07-18-2023 Following clinical pathway protocol [facility] Start: 07-18-2023 Incentive spirometry [facility] Start: 07-18-2023 Measuring intake and output [facility] Start: 07-18-2023 Neurovascular assessment [facility] Start: 07-18-2023 Oxygen therapy [facility] Start: 07-18-2023 Patient education [facility] Start: 07-18-2023 Procedure discontinued [facility] Start: 07-18-2023 Recommendation to continue with treatment [facility] Start: 07-18-2023 Taking patient vital signs [facility] Start: 07-18-2023 Admission procedure [facility] Start: 05-19-2023 Anes dx/ther nerve block/injection prone pos ANESTH N BLOCK/INJ PRONE [facility] Start: 05-19-2023 Njx anes&/strd w/img tfrml edrl lmbr/sac 1 lvl NJX AA&/STRD TFRM EPI L/S 1 [facility] Start: 05-19-2023 Njx dx/ther sbst int rlmnr lmbr/sac w/img gdn NJX INTERLAMINAR LMBR/SAC [facility] Start: 05-15-2023 Injection using fluoroscopic guidance [facility] Start: 05-15-2023 Patient discharge [facility] Start: 05-11-2023 Patient referral [facility] Work Phone: Start: 04-14-2023 Covid-19 Vaccine ( season) Covid-19 Vaccine () [facility] Start: 04-14-2023 Influenza vaccination C [facility] Start: 03-31-2023 Patient referral [facility] Work Phone: Start: 08-14-2022 ADVANCE DIRECTIVE DISCUSSION ADVANCE DIRECTIVE DISCUSSION [facility] Start: 08-14-2022 [facility] Start: 06-21-2022 Colonoscopy COLONOSCOPY [facility] Start: 06-21-2022 COLORECTAL CANCER SCREENING COLORECTAL CANCER SCREENING [facility] Start: 06-20-2022 Njx dx/ther sbst int rlmnr lmbr/sac w/img gdn NJX INTERLAMINAR LMBR/SAC [facility] Start: 06-20-2022 Injection using fluoroscopic guidance [facility] Work Phone: Start: 06-20-2022 Patient discharge [facility] Start: 04-14-2022 Influenza vaccination INFLUENZA (#1) [facility] Start: 03-01-2022 Anes open/surg arthroscopic proc knee joint nos ANESTH KNEE JOINT SURGERY [facility] Work Phone: Start: 03-01-2022 Arthrs kne surg w/meniscectomy med/lat w/shvg KNEE ARTHROSCOPY/SURGERY [facility] Work Phone: Start: 03-01-2022 Gait training procedure [facility] Work Phone: Start: 03-01-2022 Patient discharge [facility] Work Phone: Start: 03-01-2022 Application of ice collar, cap or bag [facility] Work Phone: Start: 03-01-2022 Catheterization of vein [facility] Work Phone: Start: 03-01-2022 Elevation of affecte d extremity [facility] Work Phone: Start: 03-01-2022 Following clinical pathway protocol [facility] Work Phone: Start: 03-01-2022 Procedure discontinued [facility] Work Phone: Start: 03-01-2022 Taking patient vital signs [facility] Work Phone: Start: 03-01-2022 Vital signs measurements [facility] Work Phone: Start: 03-01-2022 [facility] Work Phone: Start: 03-01-2022 Medication education [facility] Work Phone: Start: 07-10-2021 COVID-19 VACCINE (4 - Booster for Pfizer series) COVID-19 VACCINE (4 - Booster for Pfizer series) [facility] Start: 07-10-2021 COVID-19 VACCINE (4 - Pfizer series) COVID-19 VACCINE (4 - Pfizer series) [facility] Start: 04-17-2020 Hepatitis B screening URINE ALBUMIN:CREATININE RATIO [facility] Start: 04-09-2020 Hepatitis B surface antibody level LDL CHOLESTEROL [facility] Start: 03-20-2020 PNEUMOCOCCAL: 65+ (3 - PPSV23 if available, else PCV20) PNEUMOCOCCAL: 65+ (3 - PPSV23 if available, else PCV20) [facility] Start: 03-20-2020 PNEUMOCOCCAL: 65+ (3 - PPSV23 or PCV20) PNEUMOCOCCAL: 65+ (3 - PPSV23 or PCV20) [facility] Start: 01-28-2020 Shingrix Vaccine (2 of 2) Mckeon grix Vaccine (2 of 2) [facility] Start: 11-29-2019 Glaucoma screening Dilated Retinal E xam [facility] Start: 11-29-2019 Hepatitis C antibody , confirmatory test DILATED RETINAL EXAM [facility] Start: 11-22-2019 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 ANNUAL PCP TEAM CHRONIC DISEASE VISIT [facility] Start: 10-10-2019 Hemoglobin A1c measurement HbA1C [facility] Start: 10-10-2019 Hemoglobin A1c/Hemoglobin.total in Blood HBA1C [facility] Start: 07-17-2019 3 comp foot exam completed DIABETIC FOOT EXAM [facility] Start: 07-17-2019 Diabetic foot examination Diabetic F oot Exam [facility] Start: 2013 Hepatitis B Vaccine (1 of 3 - Risk 3-dose series) Hepatitis B Vaccine (1 of 3 - Risk 3-dose series) [facility] Start: 2013 RSV Vaccine (1 - 1-d ose 60+ series) RSV Vaccine (1 - 1-dose 60+ series) [facility] Start: 03-08-2013 Urine microalbumin profile [facility] Start: 2003 SHINGRIX VACCINE (1 of 2) MCKEON GRIX VACCINE (1 of 2) [facility] Start: 1998 COLOGUARD (FIT-DNA) COLOGUARD (FIT-D NA) [facility] Start: [address] COLONOGRAPHY [facility] Start: 1998 FECAL OCCULT BLOOD FECAL OCCULT BLOO D [facility] Start: 1998 Screening for malign ant neoplasm of colon [facility] Start: 1998 SIGMOIDOSCOPY SIGMOIDOSCOPY [facility] Start: 1983 Zoledronic acid therapy ALPHA- 1 ANTITRYPSIN DEFICIENCY SCREENING [facility] Start: 1971 SPIROMETRY SPIROMETRY [facility] Acid fast bacilli culture [facility] Bacteria identified in Unspecified specimen by Anaerobe culture [facility] Basic metabolic 2008 panel with ionized calcium - Serum or Plasma [facility] Bilirubin measuremen t, urine [facility] Bone marrow aspirati on procedure [facility] Cardiac event recording [facility] CBC W Auto Different ial panel - Blood [facility] End: 09-16-2023 EGD DIAGNOSTIC EGD DIAGNOSTIC Endoscopy Routine Epigastric pain 1 Occurrences starting 09/16/2022 until 09/16/2023 [facility] Work Phone: Comment on above: 1 Occurrences starti ng 09/16/2022 until 09/16/2023 End: 09-28-2024 EGD DIAGNOSTIC EGD DIAGNOSTIC Endoscopy Routine Epigastric pain 1 Occurrences starting 09/28/2023 until 09/28/2024 [facility] Work Phone: Comment on above: 1 Occurrences starti ng 09/28/2023 until 09/28/2024 Fungus identified in Unspecified specimen by Fungus stain [facility] Hemoglobin [Presence ] in Urine [facility] Hemoglobin A1c/Hemoglobin.total in Blood [facility] Lipid 1996 panel - S ariadne or Plasma [facility] Measurement of keton es in urine using dipstick [facility] Microbial culture, b cinda fluid [facility] Microscopic urinalysis [facility] MR Cervical spine [facility] MR Cervical spine [facility] MR Lumbar spine WO a nd W contrast IV [facility] Mycobacterium sp identified in Unspecified specimen by Organism specific culture [facility] Myelogram [facility] NM Heart Views W str ess and W radionuclide IV [facility] Patient Education [facility] Work Phone: Patient referral [facility] Work Phone: pH of Urine [facility] End: 08-09-2023 Screening colonoscopy COLONOSCOPY SCREENING Endoscopy Routine History of colonic polyps 1 Occurrences starting 08/09/2022 until 08/09/2023 [facility] Work Phone: Comment on above: 1 Occurrences starti ng 08/09/2022 until 08/09/2023 Specific gravity of Urine [facility] Thyroid stimulating hormone measurement [facility] Urinalysis, blood, qualitative [facility] Urine dipstick for glucose [facility] Urine dipstick for leukocyte esterase [facility] Urine dipstick for nitrite [facility] Urine dipstick for protein [facility] Urine examination [facility] Urine microscopy: epithelial cells [facility] Urine Microscopy: wh ite cells [facility] Urobilinogen [Presen ce] in Urine [facility] Immunizations Immunization Date Immunization Notes Care Provider [facility] 07-18-2024 Seasonal trivalent influenza vaccine, adjuvanted, preservative free Dr. Marshall Bear MD Work Phone: [facility] 05-17-2023 Influenza High-Dose Quadrivalent Dr. Marshall Bear MD Work Phone: [facility] 05-17-2023 RSV Adult BiValent (Abrysvo) Dr. Marshall Bear MD Work Phone: [facility] 03-14-2022 influenza virus vacc ine, unspecified formulation Jose Juan Pena MD Work Phone: [facility] 05-15-2021 Covid (Pfizer) Dr. Marshall george MD Work Phone: [facility] 04-22-2021 influenza, injectabl e, quadrivalent, preservative free Dr. Marshall Bear MD Work Phone: [facility] 11-12-2020 Covid (Pfizer) Dr. Weston Gutierrez Work Phone: [facility] 10-22-2020 Covid (Pfizer) Dr. Weston Gutierrez Work Phone: [facility] 06-01-[address] Weston Gutierrez Work Phone: [facility] 04-03-2020 influenza, injectabl e, quadrivalent, preservative free Dr. Marshall Bear MD Work Phone: [facility] 12-03-[address] Marshall Bear MD Work Phone: [facility] 05-13-2019 pneumococcal polysaccharide vaccine, [address] Marshall Bear MD Work Phone: [facility] 05-06-2019 influenza, injectabl e, quadrivalent, preservative free Dr. Marshall Bear MD Work Phone: [facility] 07-17-2018 Influenza, high dose seasonal Dr. Marshall Bear MD Work Phone: [facility] 07-17-2018 influenza, high dose seasonal, preservative-free Edilia Cannelton PA-C Work Phone: [facility] Work Phone: 07-17-2018 pneumococcal conjuga te vaccine, 13 valent Edilia Titi PA-C Work Phone: [facility] Work Phone: 07-17-2017 influenza, injectabl e, quadrivalent, contains preservative Edilia Cannelton PA-C Work Phone: [facility] 07-17-2017 influenza, injectabl e, quadrivalent, preservative free Dr. Marshall Bear MD Work Phone: [facility] 07-15-2016 influenza, injectabl e, quadrivalent, contains preservative Edilia Cannelton PA-C Work Phone: [facility] 07-29-2015 influenza, injectabl e, quadrivalent, contains preservative Edilia Titi PA-C Work Phone: [facility] Work Phone: 07-29-2015 influenza, injectabl e, quadrivalent, preservative free Dr. Marshall Bear MD Work Phone: [facility] 03-20-2015 pneumococcal polysaccharide vaccine, 23 valent Edilia Titi PA-C Work Phone: [facility] 06-10-2014 influenza, injectabl e, quadrivalent, preservative free Dr. Marshall Bear MD Work Phone: [facility] 06-10-2014 influenza, seasonal, injectable Edilia Cannelton PA-C Work Phone: [facility] 03-07-2013 tetanus and diphther ia toxoids, not adsorbed, for adult use Edilia Cannelton PA-C Work Phone: [facility] 06-14-2012 influenza virus vacc ine, unspecified formulation Edilia Cannelton PA-C Work Phone: [facility] 06-25-2010 influenza virus vacc ine, unspecified formulation Edilia Titi PA-C Work Phone: [facility] 06-05-2009 influenza virus vacc ine, unspecified formulation Edilia Cannelton PA-C Work Phone: [facility] Work Phone: 07-23-2008 influenza, injectabl e, quadrivalent, preservative free Dr. Marshall Bear MD Work Phone: [facility] 07-18-2007 influenza virus vacc ine, unspecified formulation Edilia Cannelton PA-C Work Phone: [facility] Work Phone: 06-13-2006 influenza virus vacc ine, unspecified formulation Edilia Titi PA-C Work Phone: [facility] Work Phone: Payers Date Payer Category Payer Self-pay [id number] 2024 Self-pay [id number] 2007 Medicare [id number] 2007 Medicare [employer] [place] [place] [id number] 2007-Present [phone] [address] [place] [address] O [id number] Medicare [id number] Unknown [id number] Unknown [id number] 2.16.840.1.862698.3.579.2.462 Unknown [id number] 2.16840.1.653766.3.579.2.462 Unknown [id number] 2.16.840.1.016681.3.579.2.462 Unknown [id number] 2.16.840.1.489863.3.579.2.462 Unknown [id number] 2.16840.1.703020.3.579.2.462 Unknown [id number] 2.840.1.804081.3.579.2.462 Unknown [id number] 2.840.1.380213.3.579.2.462 Unknown [id number] 2.840.1.746363.3.579.2.462 Unknown [id number] 2.840.1.338592.3.579.2.462 Unknown [id number] 2.840.1.914771.3.579.2.462 Unknown [id number] 2.840.1.509533.3.579.2.462 Unknown [id number] 2.840.1.904727.3.579.2.462 Unknown [id number] 2.840.1.547216.3.579.2.462 Unknown [id number] 2.840.1.042326.3.579.2.462 Unknown [id number] 2.840.1.691241.3.579.2.462 Unknown [id number] 2.16840.1.300718.3.579.2.462 Unknown [id number] 2.16840.1.520856.3.579.2.462 Unknown [id number] 2.16840.1.570511.3.579.2.462 Unknown [id number] 2.840.1.367681.3.579.2.462 Unknown [id number] 2.840.1.439935.3.579.2.462 Unknown [id number] 2.840.1.697623.3.579.2.462 Unknown [id number] 2.840.1.542179.3.579.2.462 Unknown [id number] 2.840.1.171057.3.579.2.462 Unknown [id number] 2.840.1.665710.3.579.2.462 Unknown [id number] 2.840.1.932174.3.579.2.462 Unknown [id number] 2.840.1.288163.3.579.2.462 Unknown [id number] 2.840.1.022642.3.579.2.462 Unknown [id number] 2.840.1.132919.3.579.2.462 Unknown [id number] 2.840.1.905049.3.579.2.462 Unknown [id number] 2.840.1.712078.3.579.2.462 Unknown [id number] 2.840.1.616724.3.579.2.462 Unknown [id number] 2.840.1.097334.3.579.2.462 Unknown [id number] 2.840.1.012139.3.579.2.462 Unknown [id number] 2.840.1.083350.3.579.2.462 Unknown [id number] 2.840.1.757990.3.579.2.462 Unknown [id number] 2.840.1.410570.3.579.2.462 Unknown [id number] 2.840.1.245608.3.579.2.462 Unknown [id number] 2.840.1.732748.3.579.2.462 Unknown [id number] 2.16.840.1.543066.3.579.2.462 Unknown [id number] 2.16.840.1.624796.3.579.2.462 Unknown [id number] 2.16.840.1.974271.3.579.2.462 Social History Date Type Detail Facility Start: 10-04-2021 End: 12-10-2023 Tobacco smoking status TXIS Unknown if ever smoked [facility] Start: 08-16-2019 None [facility] Start: 08-16-2019 With Family [facility] Start: 09-03-2020 Chew [facility] Start: 1955 Sex Assigned At Male [facility] Start: 10-13-2011 End: 10-04-2024 Tobacco smoking status TXIS Ex-smoker [facility] History of tobacco use Current smoker [facility] History of tobacco use Cigarette Smoker C [facility] Start: 10-13-2011 End: 10-20-2022 Tobacco use and exposure User of smokeless tobacco [facility] History of tobacco use Chews Tobacco [facility] Start: 08-09-2022 End: 09-28-2022 Alcohol intake Current drinker of alcohol (finding) [facility] Start: 08-09-2022 End: 08-28-2022 Alcohol intake [facility] Start: 06-20-2017 Alcohol Comment rarely [facility] Start: 1955 Sex Assigned At Not on file [facility] Start: 09-27-2022 Tobacco Comment snuff 1 can a week [facility] Start: 10-20-2022 End: 10-11-2023 Alcohol intake Ex-drinker (finding) [facility] Start: 10-20-2022 Tobacco Comment One can a week .States only smoked occasionally years ago. [facility] Start: 08-28-2022 End: 11-18-2022 Tobacco use panel [facility] Adult Depression Screening Assessment 0 [facility] Medical Equipment Procedure Code Equipment Code Equipment Original Text Equipment Identifier Dates Fusion, spine, lumbar, 360 degree, starting in supine position transitioning to prone ASPIRATOR FDA Start: 01-19-2024 Fusion, spine, lumbar, 360 degree, starting in supine position transitioning to prone PUTTY,2.5CC PRIME HD FDA Start: 01-19-2024 Fusion, spine, lumbar, 360 degree, starting in supine position transitioning to prone PUTTY,2.5CC PRIME HD FDA Start: 01-19-2024 Fusion, spine, lumbar, 360 degree, starting in supine position transitioning to prone LOUISE 40MM FDA Start: 01-19-2024 Fusion, spine, lumbar, 360 degree, starting in supine position transitioning to prone LOUISE 40MM FDA Start: 01-19-2024 Fusion, spine, lumbar, 360 degree, starting in supine position transitioning to prone SCREW FDA Start: 01-19-2024 Fusion, spine, lumbar, 360 degree, starting in supine position transitioning to prone SCREW FDA Start: 01-19-2024 Fusion, spine, lumbar, 360 degree, starting in supine position transitioning to prone SEALANT,FLOSEAL HEMOSTATIC 5ML FDA Start: 01-19-2024 Fusion, spine, lumbar, 360 degree, starting in supine position transitioning to prone SET SCREW FDA Start: 01-19-2024 Fusion, spine, lumbar, 360 degree, starting in supine position transitioning to prone SET SCREW FDA Start: 01-19-2024 Fusion, spine, lumbar, 360 degree, starting in supine position transitioning to prone SET SCREW FDA Start: 01-19-2024 Fusion, spine, lumbar, 360 degree, starting in supine position transitioning to prone BONE,30CC CRUSH CANC FDA Start: 01-19-2024 Fusion, spine, lumbar, 360 degree, starting in supine position transitioning to prone SET SCREW FDA Start: 01-19-2024 Fusion, spine, lumbar, 360 degree, starting in supine position transitioning to prone SUTURE,LIGA CLIP MED [id number] FDA Start: 01-19-2024 Fusion, spine, lumbar, 360 degree, starting in supine position transitioning to prone SUTURE,LIGA CLIP MED [id number] FDA Start: 01-19-2024 Fusion, spine, lumbar, 360 degree, starting in supine position transitioning to prone UP STYLETTES FDA Start: 01-19-2024 Fusion, spine, lumbar, 360 degree, starting in supine position transitioning to prone UP STYLETTES FDA Start: 01-19-2024 Fusion, spine, lumbar, 360 degree, starting in supine position transitioning to prone VIPER PRIME FDA Start: 01-19-2024 Fusion, spine, lumbar, 360 degree, starting in supine position transitioning to prone VIPER PRIME FDA Start: 01-19-2024 Fusion, spine, lumbar, 360 degree, starting in supine position transitioning to prone VIPER PRIME FDA Start: 01-19-2024 Fusion, spine, lumbar, 360 degree, starting in supine position transitioning to prone VIPER PRIME FDA Start: 01-19-2024 Fusion, spine, lumbar, 360 degree, starting in supine position transitioning to prone WASHER FDA Start: 01-19-2024 Fusion, spine, lumbar, 360 degree, starting in supine position transitioning to prone BONE,CRUSHED CANCELLOUS 15CC FDA Start: 01-19-2024 Fusion, spine, lumbar, 360 degree, starting in supine position transitioning to prone WASHER FDA Start: 01-19-2024 Fusion, spine, lumbar, 360 degree, starting in supine position transitioning to prone BONE,CRUSHED CANCELLOUS 15CC FDA Start: 01-19-2024 Fusion, spine, lumbar, 360 degree, starting in supine position transitioning to prone COUGAR LS [id number] FDA Start: 01-19-2024 Fusion, spine, lumbar, 360 degree, starting in supine position transitioning to prone PUTTY, 1CC PRIME HD FDA Start: 01-19-2024 Fusion, spine, lumbar, 360 degree, starting in supine position transitioning to prone PUTTY, 1CC PRIME HD FDA Start: 01-19-2024 Fusion, spine, lumbar, 360 degree, starting in supine position transitioning to prone PUTTY, 5CC STD DBX FDA Start: 01-19-2024 Fusion, spine, lumbar, 360 degree, starting in supine position transitioning to prone PUTTY,2.5CC PRIME HD FDA Start: 01-19-2024 Fusion, spine, lumbar, 360 degree, starting in supine position transitioning to prone ASPIRATOR FDA Start: 01-19-2024 Fusion, spine, lumbar, 360 degree, starting in supine position transitioning to prone PUTTY,2.5CC PRIME HD FDA Start: 01-19-2024 Fusion, spine, lumbar, 360 degree, starting in supine position transitioning to prone PUTTY,2.5CC PRIME HD FDA Start: 01-19-2024 Fusion, spine, lumbar, 360 degree, starting in supine position transitioning to prone LOUISE 40MM FDA Start: 01-19-2024 Fusion, spine, lumbar, 360 degree, starting in supine position transitioning to prone LOUISE 40MM FDA Start: 01-19-2024 Fusion, spine, lumbar, 360 degree, starting in supine position transitioning to prone SCREW FDA Start: 01-19-2024 Fusion, spine, lumbar, 360 degree, starting in supine position transitioning to prone SCREW FDA Start: 01-19-2024 Fusion, spine, lumbar, 360 degree, starting in supine position transitioning to prone SEALANT,FLOSEAL HEMOSTATIC 5ML FDA Start: 01-19-2024 Fusion, spine, lumbar, 360 degree, starting in supine position transitioning to prone SET SCREW FDA Start: 01-19-2024 Fusion, spine, lumbar, 360 degree, starting in supine position transitioning to prone SET SCREW FDA Start: 01-19-2024 Fusion, spine, lumbar, 360 degree, starting in supine position transitioning to prone SET SCREW FDA Start: 01-19-2024 Fusion, spine, lumbar, 360 degree, starting in supine position transitioning to prone BONE,30CC CRUSH CANC FDA Start: 01-19-2024 Fusion, spine, lumbar, 360 degree, starting in supine position transitioning to prone SET SCREW FDA Start: 01-19-2024 Fusion, spine, lumbar, 360 degree, starting in supine position transitioning to prone SUTURE,LIGA CLIP MED LT200 FDA Start: 01-19-2024 Fusion, spine, lumbar, 360 degree, starting in supine position transitioning to prone SUTURE,LIGA CLIP MED LT200 FDA Start: 01-19-2024 Fusion, spine, lumbar, 360 degree, starting in supine position transitioning to prone UP STYLETTES FDA Start: 01-19-2024 Fusion, spine, lumbar, 360 degree, starting in supine position transitioning to prone UP STYLETTES FDA Start: 01-19-2024 Fusion, spine, lumbar, 360 degree, starting in supine position transitioning to prone VIPER PRIME FDA Start: 01-19-2024 Fusion, spine, lumbar, 360 degree, starting in supine position transitioning to prone VIPER PRIME FDA Start: 01-19-2024 Fusion, spine, lumbar, 360 degree, starting in supine position transitioning to prone VIPER PRIME FDA Start: 01-19-2024 Fusion, spine, lumbar, 360 degree, starting in supine position transitioning to prone VIPER PRIME FDA Start: 01-19-2024 Fusion, spine, lumbar, 360 degree, starting in supine position transitioning to prone WASHER FDA Start: 01-19-2024 Fusion, spine, lumbar, 360 degree, starting in supine position transitioning to prone BONE,CRUSHED CANCELLOUS 15CC FDA Start: 01-19-2024 Fusion, spine, lumbar, 360 degree, starting in supine position transitioning to prone WASHER FDA Start: 01-19-2024 Fusion, spine, lumbar, 360 degree, starting in supine position transitioning to prone BONE,CRUSHED CANCELLOUS 15CC FDA Start: 01-19-2024 Fusion, spine, lumbar, 360 degree, starting in supine position transitioning to prone COUGAR LS [id number] FDA Start: 01-19-2024 Fusion, spine, lumbar, 360 degree, starting in supine position transitioning to prone PUTTY, 1CC PRIME HD FDA Start: 01-19-2024 Fusion, spine, lumbar, 360 degree, starting in supine position transitioning to prone PUTTY, 1CC PRIME HD FDA Start: 01-19-2024 Fusion, spine, lumbar, 360 degree, starting in supine position transitioning to prone PUTTY, 5CC STD DBX FDA Start: 01-19-2024 Fusion, spine, lumbar, 360 degree, starting in supine position transitioning to prone PUTTY,2.5CC PRIME HD FDA Start: 01-19-2024 Fusion, spine, lumbar, 360 degree, starting in supine position transitioning to prone ASPIRATOR FDA Start: 01-19-2024 Fusion, spine, lumbar, 360 degree, starting in supine position transitioning to prone PUTTY,2.5CC PRIME HD FDA Start: 01-19-2024 Fusion, spine, lumbar, 360 degree, starting in supine position transitioning to prone PUTTY,2.5CC PRIME HD FDA Start: 01-19-2024 Fusion, spine, lumbar, 360 degree, starting in supine position transitioning to prone LOUISE 40MM FDA Start: 01-19-2024 Fusion, spine, lumbar, 360 degree, starting in supine position transitioning to prone LOUISE 40MM FDA Start: 01-19-2024 Fusion, spine, lumbar, 360 degree, starting in supine position transitioning to prone SCREW FDA Start: 01-19-2024 Fusion, spine, lumbar, 360 degree, starting in supine position transitioning to prone SCREW FDA Start: 01-19-2024 Fusion, spine, lumbar, 360 degree, starting in supine position transitioning to prone SEALANT,FLOSEAL HEMOSTATIC 5ML FDA Start: 01-19-2024 Fusion, spine, lumbar, 360 degree, starting in supine position transitioning to prone SET SCREW FDA Start: 01-19-2024 Fusion, spine, lumbar, 360 degree, starting in supine position transitioning to prone SET SCREW FDA Start: 01-19-2024 Fusion, spine, lumbar, 360 degree, starting in supine position transitioning to prone SET SCREW FDA Start: 01-19-2024 Fusion, spine, lumbar, 360 degree, starting in supine position transitioning to prone BONE,30CC CRUSH CANC FDA Start: 01-19-2024 Fusion, spine, lumbar, 360 degree, starting in supine position transitioning to prone SET SCREW FDA Start: 01-19-2024 Fusion, spine, lumbar, 360 degree, starting in supine position transitioning to prone SUTURE,LIGA CLIP MED LT200 FDA Start: 01-19-2024 Fusion, spine, lumbar, 360 degree, starting in supine position transitioning to prone SUTURE,LIGA CLIP MED LT200 FDA Start: 01-19-2024 Fusion, spine, lumbar, 360 degree, starting in supine position transitioning to prone UP STYLETTES FDA Start: 01-19-2024 Fusion, spine, lumbar, 360 degree, starting in supine position transitioning to prone UP STYLETTES FDA Start: 01-19-2024 Fusion, spine, lumbar, 360 degree, starting in supine position transitioning to prone VIPER PRIME FDA Start: 01-19-2024 Fusion, spine, lumbar, 360 degree, starting in supine position transitioning to prone VIPER PRIME FDA Start: 01-19-2024 Fusion, spine, lumbar, 360 degree, starting in supine position transitioning to prone VIPER PRIME FDA Start: 01-19-2024 Fusion, spine, lumbar, 360 degree, starting in supine position transitioning to prone VIPER PRIME FDA Start: 01-19-2024 Fusion, spine, lumbar, 360 degree, starting in supine position transitioning to prone WASHER FDA Start: 01-19-2024 Fusion, spine, lumbar, 360 degree, starting in supine position transitioning to prone BONE,CRUSHED CANCELLOUS 15CC FDA Start: 01-19-2024 Fusion, spine, lumbar, 360 degree, starting in supine position transitioning to prone WASHER FDA Start: 01-19-2024 Fusion, spine, lumbar, 360 degree, starting in supine position transitioning to prone BONE,CRUSHED CANCELLOUS 15CC FDA Start: 01-19-2024 Fusion, spine, lumbar, 360 degree, starting in supine position transitioning to prone COUGAR LS [id number] FDA Start: 01-19-2024 Fusion, spine, lumbar, 360 degree, starting in supine position transitioning to prone PUTTY, 1CC PRIME HD FDA Start: 01-19-2024 Fusion, spine, lumbar, 360 degree, starting in supine position transitioning to prone PUTTY, 1CC PRIME HD FDA Start: 01-19-2024 Fusion, spine, lumbar, 360 degree, starting in supine position transitioning to prone PUTTY, 5CC STD DBX FDA Start: 01-19-2024 Fusion, spine, lumbar, 360 degree, starting in supine position transitioning to prone PUTTY,2.5CC PRIME HD FDA Start: 01-19-2024 Fusion, spine, lumbar, 360 degree, starting in supine position transitioning to prone ASPIRATOR FDA Start: 01-19-2024 Fusion, spine, lumbar, 360 degree, starting in supine position transitioning to prone PUTTY,2.5CC PRIME HD FDA Start: 01-19-2024 Fusion, spine, lumbar, 360 degree, starting in supine position transitioning to prone PUTTY,2.5CC PRIME HD FDA Start: 01-19-2024 Fusion, spine, lumbar, 360 degree, starting in supine position transitioning to prone LOUISE 40MM FDA Start: 01-19-2024 Fusion, spine, lumbar, 360 degree, starting in supine position transitioning to prone LOUISE 40MM FDA Start: 01-19-2024 Fusion, spine, lumbar, 360 degree, starting in supine position transitioning to prone SCREW FDA Start: 01-19-2024 Fusion, spine, lumbar, 360 degree, starting in supine position transitioning to prone SCREW FDA Start: 01-19-2024 Fusion, spine, lumbar, 360 degree, starting in supine position transitioning to prone SEALANT,FLOSEAL HEMOSTATIC 5ML FDA Start: 01-19-2024 Fusion, spine, lumbar, 360 degree, starting in supine position transitioning to prone SET SCREW FDA Start: 01-19-2024 Fusion, spine, lumbar, 360 degree, starting in supine position transitioning to prone SET SCREW FDA Start: 01-19-2024 Fusion, spine, lumbar, 360 degree, starting in supine position transitioning to prone SET SCREW FDA Start: 01-19-2024 Fusion, spine, lumbar, 360 degree, starting in supine position transitioning to prone BONE,30CC CRUSH CANC FDA Start: 01-19-2024 Fusion, spine, lumbar, 360 degree, starting in supine position transitioning to prone SET SCREW FDA Start: 01-19-2024 Fusion, spine, lumbar, 360 degree, starting in supine position transitioning to prone SUTURE,LIGA CLIP MED LT200 FDA Start: 01-19-2024 Fusion, spine, lumbar, 360 degree, starting in supine position transitioning to prone SUTURE,LIGA CLIP MED LT200 FDA Start: 01-19-2024 Fusion, spine, lumbar, 360 degree, starting in supine position transitioning to prone UP STYLETTES FDA Start: 01-19-2024 Fusion, spine, lumbar, 360 degree, starting in supine position transitioning to prone UP STYLETTES FDA Start: 01-19-2024 Fusion, spine, lumbar, 360 degree, starting in supine position transitioning to prone VIPER PRIME FDA Start: 01-19-2024 Fusion, spine, lumbar, 360 degree, starting in supine position transitioning to prone VIPER PRIME FDA Start: 01-19-2024 Fusion, spine, lumbar, 360 degree, starting in supine position transitioning to prone VIPER PRIME FDA Start: 01-19-2024 Fusion, spine, lumbar, 360 degree, starting in supine position transitioning to prone VIPER PRIME FDA Start: 01-19-2024 Fusion, spine, lumbar, 360 degree, starting in supine position transitioning to prone WASHER FDA Start: 01-19-2024 Fusion, spine, lumbar, 360 degree, starting in supine position transitioning to prone BONE,CRUSHED CANCELLOUS 15CC FDA Start: 01-19-2024 Fusion, spine, lumbar, 360 degree, starting in supine position transitioning to prone WASHER FDA Start: 01-19-2024 Fusion, spine, lumbar, 360 degree, starting in supine position transitioning to prone BONE,CRUSHED CANCELLOUS 15CC FDA Start: 01-19-2024 Fusion, spine, lumbar, 360 degree, starting in supine position transitioning to prone COUGAR LS [id number] FDA Start: 01-19-2024 Fusion, spine, lumbar, 360 degree, starting in supine position transitioning to prone PUTTY, 1CC PRIME HD FDA Start: 01-19-2024 Fusion, spine, lumbar, 360 degree, starting in supine position transitioning to prone PUTTY, 1CC PRIME HD FDA Start: 01-19-2024 Fusion, spine, lumbar, 360 degree, starting in supine position transitioning to prone PUTTY, 5CC STD DBX FDA Start: 01-19-2024 Fusion, spine, lumbar, 360 degree, starting in supine position transitioning to prone PUTTY,2.5CC PRIME HD FDA Start: 01-19-2024 Fusion, spine, lumbar, 360 degree, starting in supine position transitioning to prone ASPIRATOR FDA Start: 01-19-2024 Fusion, spine, lumbar, 360 degree, starting in supine position transitioning to prone PUTTY,2.5CC PRIME HD FDA Start: 01-19-2024 Fusion, spine, lumbar, 360 degree, starting in supine position transitioning to prone PUTTY,2.5CC PRIME HD FDA Start: 01-19-2024 Fusion, spine, lumbar, 360 degree, starting in supine position transitioning to prone LOUISE 40MM FDA Start: 01-19-2024 Fusion, spine, lumbar, 360 degree, starting in supine position transitioning to prone LOUISE 40MM FDA Start: 01-19-2024 Fusion, spine, lumbar, 360 degree, starting in supine position transitioning to prone SCREW FDA Start: 01-19-2024 Fusion, spine, lumbar, 360 degree, starting in supine position transitioning to prone SCREW FDA Start: 01-19-2024 Fusion, spine, lumbar, 360 degree, starting in supine position transitioning to prone SEALANT,FLOSEAL HEMOSTATIC 5ML FDA Start: 01-19-2024 Fusion, spine, lumbar, 360 degree, starting in supine position transitioning to prone SET SCREW FDA Start: 01-19-2024 Fusion, spine, lumbar, 360 degree, starting in supine position transitioning to prone SET SCREW FDA Start: 01-19-2024 Fusion, spine, lumbar, 360 degree, starting in supine position transitioning to prone SET SCREW FDA Start: 01-19-2024 Fusion, spine, lumbar, 360 degree, starting in supine position transitioning to prone BONE,30CC CRUSH CANC FDA Start: 01-19-2024 Fusion, spine, lumbar, 360 degree, starting in supine position transitioning to prone SET SCREW FDA Start: 01-19-2024 Fusion, spine, lumbar, 360 degree, starting in supine position transitioning to prone SUTURE,LIGA CLIP MED LT200 FDA Start: 01-19-2024 Fusion, spine, lumbar, 360 degree, starting in supine position transitioning to prone SUTURE,LIGA CLIP MED LT200 FDA Start: 01-19-2024 Fusion, spine, lumbar, 360 degree, starting in supine position transitioning to prone UP STYLETTES FDA Start: 01-19-2024 Fusion, spine, lumbar, 360 degree, starting in supine position transitioning to prone UP STYLETTES FDA Start: 01-19-2024 Fusion, spine, lumbar, 360 degree, starting in supine position transitioning to prone VIPER PRIME FDA Start: 01-19-2024 Fusion, spine, lumbar, 360 degree, starting in supine position transitioning to prone VIPER PRIME FDA Start: 01-19-2024 Fusion, spine, lumbar, 360 degree, starting in supine position transitioning to prone VIPER PRIME FDA Start: 01-19-2024 Fusion, spine, lumbar, 360 degree, starting in supine position transitioning to prone VIPER PRIME FDA Start: 01-19-2024 Fusion, spine, lumbar, 360 degree, starting in supine position transitioning to prone WASHER FDA Start: 01-19-2024 Fusion, spine, lumbar, 360 degree, starting in supine position transitioning to prone BONE,CRUSHED CANCELLOUS 15CC FDA Start: 01-19-2024 Fusion, spine, lumbar, 360 degree, starting in supine position transitioning to prone WASHER FDA Start: 01-19-2024 Fusion, spine, lumbar, 360 degree, starting in supine position transitioning to prone BONE,CRUSHED CANCELLOUS 15CC FDA Start: 01-19-2024 Fusion, spine, lumbar, 360 degree, starting in supine position transitioning to prone COUGAR LS [id number] FDA Start: 01-19-2024 Fusion, spine, lumbar, 360 degree, starting in supine position transitioning to prone PUTTY, 1CC PRIME HD FDA Start: 01-19-2024 Fusion, spine, lumbar, 360 degree, starting in supine position transitioning to prone PUTTY, 1CC PRIME HD FDA Start: 01-19-2024 Fusion, spine, lumbar, 360 degree, starting in supine position transitioning to prone PUTTY, 5CC STD DBX FDA Start: 01-19-2024 Fusion, spine, lumbar, 360 degree, starting in supine position transitioning to prone PUTTY,2.5CC PRIME HD FDA Start: 01-19-2024 Fusion, spine, lumbar, 360 degree, starting in supine position transitioning to prone ASPIRATOR FDA Start: 01-19-2024 Fusion, spine, lumbar, 360 degree, starting in supine position transitioning to prone PUTTY,2.5CC PRIME HD FDA Start: 01-19-2024 Fusion, spine, lumbar, 360 degree, starting in supine position transitioning to prone PUTTY,2.5CC PRIME HD FDA Start: 01-19-2024 Fusion, spine, lumbar, 360 degree, starting in supine position transitioning to prone LOUISE 40MM FDA Start: 01-19-2024 Fusion, spine, lumbar, 360 degree, starting in supine position transitioning to prone LOUISE 40MM FDA Start: 01-19-2024 Fusion, spine, lumbar, 360 degree, starting in supine position transitioning to prone SCREW FDA Start: 01-19-2024 Fusion, spine, lumbar, 360 degree, starting in supine position transitioning to prone SCREW FDA Start: 01-19-2024 Fusion, spine, lumbar, 360 degree, starting in supine position transitioning to prone SEALANT,FLOSEAL HEMOSTATIC 5ML FDA Start: 01-19-2024 Fusion, spine, lumbar, 360 degree, starting in supine position transitioning to prone SET SCREW FDA Start: 01-19-2024 Fusion, spine, lumbar, 360 degree, starting in supine position transitioning to prone SET SCREW FDA Start: 01-19-2024 Fusion, spine, lumbar, 360 degree, starting in supine position transitioning to prone SET SCREW FDA Start: 01-19-2024 Fusion, spine, lumbar, 360 degree, starting in supine position transitioning to prone BONE,30CC CRUSH CANC FDA Start: 01-19-2024 Fusion, spine, lumbar, 360 degree, starting in supine position transitioning to prone SET SCREW FDA Start: 01-19-2024 Fusion, spine, lumbar, 360 degree, starting in supine position transitioning to prone SUTURE,LIGA CLIP MED LT200 FDA Start: 01-19-2024 Fusion, spine, lumbar, 360 degree, starting in supine position transitioning to prone SUTURE,LIGA CLIP MED LT200 FDA Start: 01-19-2024 Fusion, spine, lumbar, 360 degree, starting in supine position transitioning to prone UP STYLETTES FDA Start: 01-19-2024 Fusion, spine, lumbar, 360 degree, starting in supine position transitioning to prone UP STYLETTES FDA Start: 01-19-2024 Fusion, spine, lumbar, 360 degree, starting in supine position transitioning to prone VIPER PRIME FDA Start: 01-19-2024 Fusion, spine, lumbar, 360 degree, starting in supine position transitioning to prone VIPER PRIME FDA Start: 01-19-2024 Fusion, spine, lumbar, 360 degree, starting in supine position transitioning to prone VIPER PRIME FDA Start: 01-19-2024 Fusion, spine, lumbar, 360 degree, starting in supine position transitioning to prone VIPER PRIME FDA Start: 01-19-2024 Fusion, spine, lumbar, 360 degree, starting in supine position transitioning to prone WASHER FDA Start: 01-19-2024 Fusion, spine, lumbar, 360 degree, starting in supine position transitioning to prone BONE,CRUSHED CANCELLOUS 15CC FDA Start: 01-19-2024 Fusion, spine, lumbar, 360 degree, starting in supine position transitioning to prone WASHER FDA Start: 01-19-2024 Fusion, spine, lumbar, 360 degree, starting in supine position transitioning to prone BONE,CRUSHED CANCELLOUS 15CC FDA Start: 01-19-2024 Fusion, spine, lumbar, 360 degree, starting in supine position transitioning to prone COUGAR LS [id number] FDA Start: 01-19-2024 Fusion, spine, lumbar, 360 degree, starting in supine position transitioning to prone PUTTY, 1CC PRIME HD FDA Start: 01-19-2024 Fusion, spine, lumbar, 360 degree, starting in supine position transitioning to prone PUTTY, 1CC PRIME HD FDA Start: 01-19-2024 Fusion, spine, lumbar, 360 degree, starting in supine position transitioning to prone PUTTY, 5CC STD DBX FDA Start: 01-19-2024 Fusion, spine, lumbar, 360 degree, starting in supine position transitioning to prone PUTTY,2.5CC PRIME HD FDA Start: 01-19-2024 Discectomy, spine, cervical, anterior approach, with fusion 1 level plate FDA Start: 09-03-2020 Discectomy, spine, cervical, anterior approach, with fusion BLUEWATER SURX16MM SCREWS FDA Start: 09-03-2020 Discectomy, spine, cervical, anterior approach, with fusion BLUEWATER SURX16MM SCREWS FDA Start: 09-03-2020 Discectomy, spine, cervical, anterior approach, with fusion BLUEWATER SURX16MM SCREWS FDA Start: 09-03-2020 Discectomy, spine, cervical, anterior approach, with fusion BLUEWATER SURX16MM SCREWS FDA Start: 09-03-2020 Discectomy, spine, cervical, anterior approach, with fusion CORELINK FDA Start: 09-03-2020 Discectomy, spine, cervical, anterior approach, with fusion PATCH,AMNION 2X3CM FDA Start: 09-03-2020 Discectomy, spine, cervical, anterior approach, with fusion STRIP,BONE CANC [id number] FDA Start: 09-03-2020 Discectomy, spine, cervical, anterior approach, with fusion 1 level plate FDA Start: 09-03-2020 Discectomy, spine, cervical, anterior approach, with fusion BLUEWATER SURX16MM SCREWS FDA Start: 09-03-2020 Discectomy, spine, cervical, anterior approach, with fusion BLUEWATER SURX16MM SCREWS FDA Start: 09-03-2020 Discectomy, spine, cervical, anterior approach, with fusion BLUEWATER SURX16MM SCREWS FDA Start: 09-03-2020 Discectomy, spine, cervical, anterior approach, with fusion BLUEWATER SURX16MM SCREWS FDA Start: 09-03-2020 Discectomy, spine, cervical, anterior approach, with fusion CORELINK FDA Start: 09-03-2020 Discectomy, spine, cervical, anterior approach, with fusion PATCH,AMNION 2X3CM FDA Start: 09-03-2020 Discectomy, spine, cervical, anterior approach, with fusion STRIP,BONE CANC [id number] FDA Start: 09-03-2020 Discectomy, spine, cervical, anterior approach, with fusion 1 level plate FDA Start: 09-03-2020 Discectomy, spine, cervical, anterior approach, with fusion BLUEWATER SURX16MM SCREWS FDA Start: 09-03-2020 Discectomy, spine, cervical, anterior approach, with fusion BLUEWATER SURX16MM SCREWS FDA Start: 09-03-2020 Discectomy, spine, cervical, anterior approach, with fusion BLUEWATER SURX16MM SCREWS FDA Start: 09-03-2020 Discectomy, spine, cervical, anterior approach, with fusion BLUEWATER SURX16MM SCREWS FDA Start: 09-03-2020 Discectomy, spine, cervical, anterior approach, with fusion CORELINK FDA Start: 09-03-2020 Discectomy, spine, cervical, anterior approach, with fusion PATCH,AMNION 2X3CM FDA Start: 09-03-2020 Discectomy, spine, cervical, anterior approach, with fusion STRIP,BONE CANC [id number] FDA Start: 09-03-2020 Discectomy, spine, cervical, anterior approach, with fusion 1 level plate FDA Start: 09-03-2020 Discectomy, spine, cervical, anterior approach, with fusion BLUEWATER SURX16MM SCREWS FDA Start: 09-03-2020 Discectomy, spine, cervical, anterior approach, with fusion BLUEWATER SURX16MM SCREWS FDA Start: 09-03-2020 Discectomy, spine, cervical, anterior approach, with fusion BLUEWATER SURX16MM SCREWS FDA Start: 09-03-2020 Discectomy, spine, cervical, anterior approach, with fusion BLUEWATER SURX16MM SCREWS FDA Start: 09-03-2020 Discectomy, spine, cervical, anterior approach, with fusion CORELINK FDA Start: 09-03-2020 Discectomy, spine, cervical, anterior approach, with fusion PATCH,AMNION 2X3CM FDA Start: 09-03-2020 Discectomy, spine, cervical, anterior approach, with fusion STRIP,BONE CANC [id number] FDA Start: 09-03-2020 Discectomy, spine, cervical, anterior approach, with fusion 1 level plate FDA Start: 09-03-2020 Discectomy, spine, cervical, anterior approach, with fusion BLUEWATER SURX16MM SCREWS FDA Start: 09-03-2020 Discectomy, spine, cervical, anterior approach, with fusion BLUEWATER SURX16MM SCREWS FDA Start: 09-03-2020 Discectomy, spine, cervical, anterior approach, with fusion BLUEWATER SURX16MM SCREWS FDA Start: 09-03-2020 Discectomy, spine, cervical, anterior approach, with fusion BLUEWATER SURX16MM SCREWS FDA Start: 09-03-2020 Discectomy, spine, cervical, anterior approach, with fusion CORELINK FDA Start: 09-03-2020 Discectomy, spine, cervical, anterior approach, with fusion PATCH,AMNION 2X3CM FDA Start: 09-03-2020 Discectomy, spine, cervical, anterior approach, with fusion STRIP,BONE CANC [id number] FDA Start: 09-03-2020 Discectomy, spine, cervical, anterior approach, with fusion 1 level plate FDA Start: 09-03-2020 Discectomy, spine, cervical, anterior approach, with fusion BLUEWATER SURX16MM SCREWS FDA Start: 09-03-2020 Discectomy, spine, cervical, anterior approach, with fusion BLUEWATER SURX16MM SCREWS FDA Start: 09-03-2020 Discectomy, spine, cervical, anterior approach, with fusion BLUEWATER SURX16MM SCREWS FDA Start: 09-03-2020 Discectomy, spine, cervical, anterior approach, with fusion BLUEWATER SURX16MM SCREWS FDA Start: 09-03-2020 Discectomy, spine, cervical, anterior approach, with fusion CORELINK FDA Start: 09-03-2020 Discectomy, spine, cervical, anterior approach, with fusion PATCH,AMNION 2X3CM FDA Start: 09-03-2020 Discectomy, spine, cervical, anterior approach, with fusion STRIP,BONE CANC [id number] FDA Start: 09-03-2020 Discectomy, spine, cervical, anterior approach, with fusion 1 level plate FDA Start: 09-03-2020 Discectomy, spine, cervical, anterior approach, with fusion BLUEWATER SURX16MM SCREWS FDA Start: 09-03-2020 Discectomy, spine, cervical, anterior approach, with fusion BLUEWATER SURX16MM SCREWS FDA Start: 09-03-2020 Discectomy, spine, cervical, anterior approach, with fusion BLUEWATER SURX16MM SCREWS FDA Start: 09-03-2020 Discectomy, spine, cervical, anterior approach, with fusion BLUEWATER SURX16MM SCREWS FDA Start: 09-03-2020 Discectomy, spine, cervical, anterior approach, with fusion CORELINK FDA Start: 09-03-2020 Discectomy, spine, cervical, anterior approach, with fusion PATCH,AMNION 2X3CM FDA Start: 09-03-2020 Discectomy, spine, cervical, anterior approach, with fusion STRIP,BONE CANC [id number] FDA Start: 09-03-2020 Discectomy, spine, cervical, anterior approach, with fusion 1 level plate FDA Start: 09-03-2020 Discectomy, spine, cervical, anterior approach, with fusion BLUEWATER SURX16MM SCREWS FDA Start: 09-03-2020 Discectomy, spine, cervical, anterior approach, with fusion BLUEWATER SURX16MM SCREWS FDA Start: 09-03-2020 Discectomy, spine, cervical, anterior approach, with fusion BLUEWATER SURX16MM SCREWS FDA Start: 09-03-2020 Discectomy, spine, cervical, anterior approach, with fusion BLUEWATER SURX16MM SCREWS FDA Start: 09-03-2020 Discectomy, spine, cervical, anterior approach, with fusion CORELINK FDA Start: 09-03-2020 Discectomy, spine, cervical, anterior approach, with fusion PATCH,AMNION 2X3CM FDA Start: 09-03-2020 Discectomy, spine, cervical, anterior approach, with fusion STRIP,BONE CANC [id number] FDA Start: 09-03-2020 Discectomy, spine, cervical, anterior approach, with fusion 1 level plate FDA Start: 09-03-2020 Discectomy, spine, cervical, anterior approach, with fusion BLUEWATER SURX16MM SCREWS FDA Start: 09-03-2020 Discectomy, spine, cervical, anterior approach, with fusion BLUEWATER SURX16MM SCREWS FDA Start: 09-03-2020 Discectomy, spine, cervical, anterior approach, with fusion BLUEWATER SURX16MM SCREWS FDA Start: 09-03-2020 Discectomy, spine, cervical, anterior approach, with fusion BLUEWATER SURX16MM SCREWS FDA Start: 09-03-2020 Discectomy, spine, cervical, anterior approach, with fusion CORELINK FDA Start: 09-03-2020 Discectomy, spine, cervical, anterior approach, with fusion PATCH,AMNION 2X3CM FDA Start: 09-03-2020 Discectomy, spine, cervical, anterior approach, with fusion STRIP,BONE CANC [id number] FDA Start: 09-03-2020 Discectomy, spine, cervical, anterior approach, with fusion 1 level plate FDA Start: 09-03-2020 Discectomy, spine, cervical, anterior approach, with fusion BLUEWATER SURX16MM SCREWS FDA Start: 09-03-2020 Discectomy, spine, cervical, anterior approach, with fusion BLUEWATER SURX16MM SCREWS FDA Start: 09-03-2020 Discectomy, spine, cervical, anterior approach, with fusion BLUEWATER SURX16MM SCREWS FDA Start: 09-03-2020 Discectomy, spine, cervical, anterior approach, with fusion BLUEWATER SURX16MM SCREWS FDA Start: 09-03-2020 Discectomy, spine, cervical, anterior approach, with fusion CORELINK FDA Start: 09-03-2020 Discectomy, spine, cervical, anterior approach, with fusion PATCH,AMNION 2X3CM FDA Start: 09-03-2020 Discectomy, spine, cervical, anterior approach, with fusion STRIP,BONE CANC [id number] FDA Start: 09-03-2020 Discectomy, spine, cervical, anterior approach, with fusion 1 level plate FDA Start: 09-03-2020 Discectomy, spine, cervical, anterior approach, with fusion BLUEWATER SURX16MM SCREWS FDA Start: 09-03-2020 Discectomy, spine, cervical, anterior approach, with fusion BLUEWATER SURX16MM SCREWS FDA Start: 09-03-2020 Discectomy, spine, cervical, anterior approach, with fusion BLUEWATER SURX16MM SCREWS FDA Start: 09-03-2020 Discectomy, spine, cervical, anterior approach, with fusion BLUEWATER SURX16MM SCREWS FDA Start: 09-03-2020 Discectomy, spine, cervical, anterior approach, with fusion CORELINK FDA Start: 09-03-2020 Discectomy, spine, cervical, anterior approach, with fusion PATCH,AMNION 2X3CM FDA Start: 09-03-2020 Discectomy, spine, cervical, anterior approach, with fusion STRIP,BONE CANC [id number] FDA Start: 09-03-2020 Discectomy, spine, cervical, anterior approach, with fusion 1 level plate FDA Start: 09-03-2020 Discectomy, spine, cervical, anterior approach, with fusion BLUEWATER SURX16MM SCREWS FDA Start: 09-03-2020 Discectomy, spine, cervical, anterior approach, with fusion BLUEWATER SURX16MM SCREWS FDA Start: 09-03-2020 Discectomy, spine, cervical, anterior approach, with fusion BLUEWATER SURX16MM SCREWS FDA Start: 09-03-2020 Discectomy, spine, cervical, anterior approach, with fusion BLUEWATER SURX16MM SCREWS FDA Start: 09-03-2020 Discectomy, spine, cervical, anterior approach, with fusion CORELINK FDA Start: 09-03-2020 Discectomy, spine, cervical, anterior approach, with fusion PATCH,AMNION 2X3CM FDA Start: 09-03-2020 Discectomy, spine, cervical, anterior approach, with fusion STRIP,BONE CANC [id number] FDA Start: 09-03-2020 Discectomy, spine, cervical, anterior approach, with fusion 1 level plate FDA Start: 09-03-2020 Discectomy, spine, cervical, anterior approach, with fusion BLUEWATER SURX16MM SCREWS FDA Start: 09-03-2020 Discectomy, spine, cervical, anterior approach, with fusion BLUEWATER SURX16MM SCREWS FDA Start: 09-03-2020 Discectomy, spine, cervical, anterior approach, with fusion BLUEWATER SURX16MM SCREWS FDA Start: 09-03-2020 Discectomy, spine, cervical, anterior approach, with fusion BLUEWATER SURX16MM SCREWS FDA Start: 09-03-2020 Discectomy, spine, cervical, anterior approach, with fusion CORELINK FDA Start: 09-03-2020 Discectomy, spine, cervical, anterior approach, with fusion PATCH,AMNION 2X3CM FDA Start: 09-03-2020 Discectomy, spine, cervical, anterior approach, with fusion STRIP,BONE CANC [id number] FDA Start: 09-03-2020 Discectomy, spine, cervical, anterior approach, with fusion 1 level plate FDA Start: 09-03-2020 Discectomy, spine, cervical, anterior approach, with fusion BLUEWATER SURX16MM SCREWS FDA Start: 09-03-2020 Discectomy, spine, cervical, anterior approach, with fusion BLUEWATER SURX16MM SCREWS FDA Start: 09-03-2020 Discectomy, spine, cervical, anterior approach, with fusion BLUEWATER SURX16MM SCREWS FDA Start: 09-03-2020 Discectomy, spine, cervical, anterior approach, with fusion BLUEWATER SURX16MM SCREWS FDA Start: 09-03-2020 Discectomy, spine, cervical, anterior approach, with fusion CORELINK FDA Start: 09-03-2020 Discectomy, spine, cervical, anterior approach, with fusion PATCH,AMNION 2X3CM FDA Start: 09-03-2020 Discectomy, spine, cervical, anterior approach, with fusion STRIP,BONE CANC [id number] FDA Start: 09-03-2020 Discectomy, spine, cervical, anterior approach, with fusion 1 level plate FDA Start: 09-03-2020 Discectomy, spine, cervical, anterior approach, with fusion BLUEWATER SURX16MM SCREWS FDA Start: 09-03-2020 Discectomy, spine, cervical, anterior approach, with fusion BLUEWATER SURX16MM SCREWS FDA Start: 09-03-2020 Discectomy, spine, cervical, anterior approach, with fusion BLUEWATER SURX16MM SCREWS FDA Start: 09-03-2020 Discectomy, spine, cervical, anterior approach, with fusion BLUEWATER SURX16MM SCREWS FDA Start: 09-03-2020 Discectomy, spine, cervical, anterior approach, with fusion CORELINK FDA Start: 09-03-2020 Discectomy, spine, cervical, anterior approach, with fusion PATCH,AMNION 2X3CM FDA Start: 09-03-2020 Discectomy, spine, cervical, anterior approach, with fusion STRIP,BONE CANC [id number] FDA Start: 09-03-2020 Discectomy, spine, cervical, anterior approach, with fusion 1 level plate FDA Start: 09-03-2020 Discectomy, spine, cervical, anterior approach, with fusion BLUEWATER SURX16MM SCREWS FDA Start: 01-21-2021 Discectomy, spine, cervical, anterior approach, with fusion BLUEWATER SURX16MM SCREWS FDA Start: 09-03-2020 Discectomy, spine, cervical, anterior approach, with fusion BLUEWATER SURX16MM SCREWS FDA Start: 09-03-2020 Discectomy, spine, cervical, anterior approach, with fusion BLUEWATER SURX16MM SCREWS FDA Start: 09-03-2020 Discectomy, spine, cervical, anterior approach, with fusion CORELINK FDA Start: 09-03-2020 Discectomy, spine, cervical, anterior approach, with fusion PATCH,AMNION 2X3CM FDA Start: 09-03-2020 Discectomy, spine, cervical, anterior approach, with fusion STRIP,BONE CANC [id number] FDA Start: 09-03-2020 Discectomy, spine, cervical, anterior approach, with fusion FDA Start: 09-03-2020 Discectomy, spine, cervical, anterior approach, with fusion FDA Start: 09-03-2020 Discectomy, spine, cervical, anterior approach, with fusion FDA Start: 09-03-2020 Discectomy, spine, cervical, anterior approach, with fusion FDA Start: 09-03-2020 Discectomy, spine, cervical, anterior approach, with fusion FDA Start: 09-03-2020 Discectomy, spine, cervical, anterior approach, with fusion FDA Start: 09-03-2020 Discectomy, spine, cervical, anterior approach, with fusion FDA Start: 09-03-2020 Discectomy, spine, cervical, anterior approach, with fusion FDA Start: 09-03-2020 Discectomy, spine, cervical, anterior approach, with fusion FDA Start: 09-03-2020 Discectomy, spine, cervical, anterior approach, with fusion FDA Start: 09-03-2020 Discectomy, spine, cervical, anterior approach, with fusion FDA Start: 09-03-2020 Discectomy, spine, cervical, anterior approach, with fusion FDA Start: 09-03-2020 Discectomy, spine, cervical, anterior approach, with fusion FDA Start: 09-03-2020 Discectomy, spine, cervical, anterior approach, with fusion FDA Start: 09-03-2020 Discectomy, spine, cervical, anterior approach, with fusion FDA Start: 09-03-2020 Discectomy, spine, cervical, anterior approach, with fusion FDA Start: 09-03-2020 Discectomy, spine, cervical, anterior approach, with fusion FDA Start: 09-03-2020 Discectomy, spine, cervical, anterior approach, with fusion FDA Start: 09-03-2020 Discectomy, spine, cervical, anterior approach, with fusion FDA Start: 09-03-2020 Discectomy, spine, cervical, anterior approach, with fusion FDA Start: 09-03-2020 Discectomy, spine, cervical, anterior approach, with fusion FDA Start: 09-03-2020 Discectomy, spine, cervical, anterior approach, with fusion FDA Start: 09-03-2020 Discectomy, spine, cervical, anterior approach, with fusion FDA Start: 09-03-2020 Discectomy, spine, cervical, anterior approach, with fusion FDA Start: 09-03-2020 Discectomy, spine, cervical, anterior approach, with fusion FDA Start: 09-03-2020 Discectomy, spine, cervical, anterior approach, with fusion FDA Start: 09-03-2020 Discectomy, spine, cervical, anterior approach, with fusion FDA Start: 09-03-2020 Discectomy, spine, cervical, anterior approach, with fusion FDA Start: 09-03-2020 Discectomy, spine, cervical, anterior approach, with fusion FDA Start: 09-03-2020 Discectomy, spine, cervical, anterior approach, with fusion FDA Start: 09-03-2020 Discectomy, spine, cervical, anterior approach, with fusion FDA Start: 09-03-2020 Discectomy, spine, cervical, anterior approach, with fusion FDA Start: 09-03-2020 Discectomy, spine, cervical, anterior approach, with fusion FDA Start: 09-03-2020 Discectomy, spine, cervical, anterior approach, with fusion FDA Start: 09-03-2020 Discectomy, spine, cervical, anterior approach, with fusion FDA Start: 09-03-2020 Discectomy, spine, cervical, anterior approach, with fusion FDA Start: 09-03-2020 Discectomy, spine, cervical, anterior approach, with fusion FDA Start: 09-03-2020 Discectomy, spine, cervical, anterior approach, with fusion FDA Start: 09-03-2020 Discectomy, spine, cervical, anterior approach, with fusion FDA Start: 09-03-2020 Discectomy, spine, cervical, anterior approach, with fusion FDA Start: 09-03-2020 Discectomy, spine, cervical, anterior approach, with fusion FDA Start: 09-03-2020 Discectomy, spine, cervical, anterior approach, with fusion FDA Start: 09-03-2020 Discectomy, spine, cervical, anterior approach, with fusion FDA Start: 09-03-2020 Discectomy, spine, cervical, anterior approach, with fusion FDA Start: 09-03-2020 Discectomy, spine, cervical, anterior approach, with fusion FDA Start: 09-03-2020 Discectomy, spine, cervical, anterior approach, with fusion FDA Start: 09-03-2020 Discectomy, spine, cervical, anterior approach, with fusion FDA Start: 09-03-2020 Discectomy, spine, cervical, anterior approach, with fusion FDA Start: 09-03-2020 Discectomy, spine, cervical, anterior approach, with fusion FDA Start: 09-03-2020 Discectomy, spine, cervical, anterior approach, with fusion FDA Start: 09-03-2020 Discectomy, spine, cervical, anterior approach, with fusion FDA Start: 09-03-2020 Discectomy, spine, cervical, anterior approach, with fusion FDA Start: 09-03-2020 Discectomy, spine, cervical, anterior approach, with fusion FDA Start: 09-03-2020 Discectomy, spine, cervical, anterior approach, with fusion FDA Start: 09-03-2020 Discectomy, spine, cervical, anterior approach, with fusion FDA Start: 09-03-2020 Discectomy, spine, cervical, anterior approach, with fusion FDA Start: 09-03-2020 Discectomy, spine, cervical, anterior approach, with fusion FDA Start: 09-03-2020 Discectomy, spine, cervical, anterior approach, with fusion FDA Start: 09-03-2020 Discectomy, spine, cervical, anterior approach, with fusion FDA Start: 09-03-2020 Discectomy, spine, cervical, anterior approach, with fusion FDA Start: 09-03-2020 Discectomy, spine, cervical, anterior approach, with fusion FDA Start: 09-03-2020 Discectomy, spine, cervical, anterior approach, with fusion FDA Start: 09-03-2020 Discectomy, spine, cervical, anterior approach, with fusion FDA Start: 09-03-2020 Discectomy, spine, cervical, anterior approach, with fusion FDA Start: 09-03-2020 Discectomy, spine, cervical, anterior approach, with fusion FDA Start: 09-03-2020 Discectomy, spine, cervical, anterior approach, with fusion FDA Start: 09-03-2020 Discectomy, spine, cervical, anterior approach, with fusion FDA Start: 09-03-2020 Discectomy, spine, cervical, anterior approach, with fusion FDA Start: 09-03-2020 Discectomy, spine, cervical, anterior approach, with fusion FDA Start: 09-03-2020 Discectomy, spine, cervical, anterior approach, with fusion FDA Start: 09-03-2020 Discectomy, spine, cervical, anterior approach, with fusion FDA Start: 09-03-2020 Discectomy, spine, cervical, anterior approach, with fusion FDA Start: 09-03-2020 Discectomy, spine, cervical, anterior approach, with fusion FDA Start: 09-03-2020 Discectomy, spine, cervical, anterior approach, with fusion FDA Start: 09-03-2020 Discectomy, spine, cervical, anterior approach, with fusion FDA Start: 09-03-2020 Discectomy, spine, cervical, anterior approach, with fusion FDA Start: 09-03-2020 Discectomy, spine, cervical, anterior approach, with fusion FDA Start: 09-03-2020 Discectomy, spine, cervical, anterior approach, with fusion FDA Start: 09-03-2020 Discectomy, spine, cervical, anterior approach, with fusion FDA Start: 09-03-2020 Discectomy, spine, cervical, anterior approach, with fusion FDA Start: 09-03-2020 Discectomy, spine, cervical, anterior approach, with fusion FDA Start: 09-03-2020 Discectomy, spine, cervical, anterior approach, with fusion FDA Start: 09-03-2020 Discectomy, spine, cervical, anterior approach, with fusion FDA Start: 09-03-2020 Discectomy, spine, cervical, anterior approach, with fusion FDA Start: 09-03-2020 Discectomy, spine, cervical, anterior approach, with fusion FDA Start: 09-03-2020 Discectomy, spine, cervical, anterior approach, with fusion FDA Start: 09-03-2020 Discectomy, spine, cervical, anterior approach, with fusion FDA Start: 09-03-2020 Discectomy, spine, cervical, anterior approach, with fusion FDA Start: 09-03-2020 Discectomy, spine, cervical, anterior approach, with fusion FDA Start: 09-03-2020 Discectomy, spine, cervical, anterior approach, with fusion FDA Start: 09-03-2020 Discectomy, spine, cervical, anterior approach, with fusion FDA Start: 09-03-2020 Discectomy, spine, cervical, anterior approach, with fusion FDA Start: 09-03-2020 Discectomy, spine, cervical, anterior approach, with fusion FDA Start: 09-03-2020 Discectomy, spine, cervical, anterior approach, with fusion FDA Start: 09-03-2020 Discectomy, spine, cervical, anterior approach, with fusion FDA Start: 09-03-2020 Discectomy, spine, cervical, anterior approach, with fusion FDA Start: 09-03-2020 Discectomy, spine, cervical, anterior approach, with fusion FDA Start: 09-03-2020 Discectomy, spine, cervical, anterior approach, with fusion FDA Start: 09-03-2020 Discectomy, spine, cervical, anterior approach, with fusion FDA Start: 09-03-2020 Discectomy, spine, cervical, anterior approach, with fusion FDA Start: 09-03-2020 Discectomy, spine, cervical, anterior approach, with fusion FDA Start: 09-03-2020 Discectomy, spine, cervical, anterior approach, with fusion FDA Start: 09-03-2020 Discectomy, spine, cervical, anterior approach, with fusion FDA Start: 09-03-2020 Discectomy, spine, cervical, anterior approach, with fusion FDA Start: 09-03-2020 Discectomy, spine, cervical, anterior approach, with fusion FDA Start: 09-03-2020 Discectomy, spine, cervical, anterior approach, with fusion FDA Start: 09-03-2020 Discectomy, spine, cervical, anterior approach, with fusion FDA Start: 09-03-2020 Discectomy, spine, cervical, anterior approach, with fusion FDA Start: 09-03-2020 Discectomy, spine, cervical, anterior approach, with fusion FDA Start: 09-03-2020 Discectomy, spine, cervical, anterior approach, with fusion FDA Start: 09-03-2020 Discectomy, spine, cervical, anterior approach, with fusion FDA Start: 09-03-2020 Discectomy, spine, cervical, anterior approach, with fusion FDA Start: 09-03-2020 Discectomy, spine, cervical, anterior approach, with fusion FDA Start: 09-03-2020 Discectomy, spine, cervical, anterior approach, with fusion FDA Start: 09-03-2020 Discectomy, spine, cervical, anterior approach, with fusion FDA Start: 09-03-2020 Discectomy, spine, cervical, anterior approach, with fusion FDA Start: 09-03-2020 Discectomy, spine, cervical, anterior approach, with fusion FDA Start: 09-03-2020 Discectomy, spine, cervical, anterior approach, with fusion FDA Start: 09-03-2020 Discectomy, spine, cervical, anterior approach, with fusion FDA Start: 09-03-2020 Discectomy, spine, cervical, anterior approach, with fusion FDA Start: 09-03-2020 Discectomy, spine, cervical, anterior approach, with fusion FDA Start: 09-03-2020 Discectomy, spine, cervical, anterior approach, with fusion FDA Start: 09-03-2020 Discectomy, spine, cervical, anterior approach, with fusion FDA Start: 09-03-2020 Discectomy, spine, cervical, anterior approach, with fusion FDA Start: 09-03-2020 Discectomy, spine, cervical, anterior approach, with fusion FDA Start: 09-03-2020 Discectomy, spine, cervical, anterior approach, with fusion FDA Start: 09-03-2020 Discectomy, spine, cervical, anterior approach, with fusion FDA Start: 09-03-2020 Discectomy, spine, cervical, anterior approach, with fusion FDA Start: 09-03-2020 Discectomy, spine, cervical, anterior approach, with fusion 1 level plate FDA Start: 09-03-2020 Discectomy, spine, cervical, anterior approach, with fusion BLUEWATER SURX16MM SCREWS FDA Start: 09-03-2020 Discectomy, spine, cervical, anterior approach, with fusion BLUEWATER SURX16MM SCREWS FDA Start: 09-03-2020 Discectomy, spine, cervical, anterior approach, with fusion BLUEWATER SURX16MM SCREWS FDA Start: 09-03-2020 Discectomy, spine, cervical, anterior approach, with fusion BLUEWATER SURX16MM SCREWS FDA Start: 09-03-2020 Discectomy, spine, cervical, anterior approach, with fusion CORELINK FDA Start: 09-03-2020 Discectomy, spine, cervical, anterior approach, with fusion PATCH,AMNION 2X3CM FDA Start: 09-03-2020 Discectomy, spine, cervical, anterior approach, with fusion STRIP,BONE CANC [id number] FDA Start: 09-03-2020 Discectomy, spine, cervical, anterior approach, with fusion 1 level plate FDA Start: 09-03-2020 Discectomy, spine, cervical, anterior approach, with fusion BLUEWATER SURX16MM SCREWS FDA Start: 09-03-2020 Discectomy, spine, cervical, anterior approach, with fusion BLUEWATER SURX16MM SCREWS FDA Start: 09-03-2020 Discectomy, spine, cervical, anterior approach, with fusion BLUEWATER SURX16MM SCREWS FDA Start: 09-03-2020 Discectomy, spine, cervical, anterior approach, with fusion BLUEWATER SURX16MM SCREWS FDA Start: 09-03-2020 Discectomy, spine, cervical, anterior approach, with fusion CORELINK FDA Start: 09-03-2020 Discectomy, spine, cervical, anterior approach, with fusion PATCH,AMNION 2X3CM FDA Start: 09-03-2020 Discectomy, spine, cervical, anterior approach, with fusion STRIP,BONE CANC [id number] FDA Start: 09-03-2020 Discectomy, spine, cervical, anterior approach, with fusion 1 level plate FDA Start: 09-03-2020 Discectomy, spine, cervical, anterior approach, with fusion BLUEWATER SURX16MM SCREWS FDA Start: 09-03-2020 Discectomy, spine, cervical, anterior approach, with fusion BLUEWATER SURX16MM SCREWS FDA Start: 09-03-2020 Discectomy, spine, cervical, anterior approach, with fusion BLUEWATER SURX16MM SCREWS FDA Start: 09-03-2020 Discectomy, spine, cervical, anterior approach, with fusion BLUEWATER SURX16MM SCREWS FDA Start: 09-03-2020 Discectomy, spine, cervical, anterior approach, with fusion CORELINK FDA Start: 09-03-2020 Discectomy, spine, cervical, anterior approach, with fusion PATCH,AMNION 2X3CM FDA Start: 09-03-2020 Discectomy, spine, cervical, anterior approach, with fusion STRIP,BONE CANC [id number] FDA Start: 09-03-2020 Discectomy, spine, cervical, anterior approach, with fusion 1 level plate FDA Start: 09-03-2020 Discectomy, spine, cervical, anterior approach, with fusion BLUEWATER SURX16MM SCREWS FDA Start: 09-03-2020 Discectomy, spine, cervical, anterior approach, with fusion BLUEWATER SURX16MM SCREWS FDA Start: 09-03-2020 Discectomy, spine, cervical, anterior approach, with fusion BLUEWATER SURX16MM SCREWS FDA Start: 09-03-2020 Discectomy, spine, cervical, anterior approach, with fusion BLUEWATER SURX16MM SCREWS FDA Start: 09-03-2020 Discectomy, spine, cervical, anterior approach, with fusion CORELINK FDA Start: 09-03-2020 Discectomy, spine, cervical, anterior approach, with fusion PATCH,AMNION 2X3CM FDA Start: 09-03-2020 Discectomy, spine, cervical, anterior approach, with fusion STRIP,BONE CANC [id number] FDA Start: 09-03-2020 Discectomy, spine, cervical, anterior approach, with fusion 1 level plate FDA Start: 09-03-2020 Discectomy, spine, cervical, anterior approach, with fusion BLUEWATER SURX16MM SCREWS FDA Start: 09-03-2020 Discectomy, spine, cervical, anterior approach, with fusion BLUEWATER SURX16MM SCREWS FDA Start: 09-03-2020 Discectomy, spine, cervical, anterior approach, with fusion BLUEWATER SURX16MM SCREWS FDA Start: 09-03-2020 Discectomy, spine, cervical, anterior approach, with fusion BLUEWATER SURX16MM SCREWS FDA Start: 09-03-2020 Discectomy, spine, cervical, anterior approach, with fusion CORELINK FDA Start: 09-03-2020 Discectomy, spine, cervical, anterior approach, with fusion PATCH,AMNION 2X3CM FDA Start: 09-03-2020 Discectomy, spine, cervical, anterior approach, with fusion STRIP,BONE CANC [id number] FDA Start: 09-03-2020 Discectomy, spine, cervical, anterior approach, with fusion 1 level plate FDA Start: 09-03-2020 Discectomy, spine, cervical, anterior approach, with fusion BLUEWATER SURX16MM SCREWS FDA Start: 09-03-2020 Discectomy, spine, cervical, anterior approach, with fusion BLUEWATER SURX16MM SCREWS FDA Start: 09-03-2020 Discectomy, spine, cervical, anterior approach, with fusion BLUEWATER SURX16MM SCREWS FDA Start: 09-03-2020 Discectomy, spine, cervical, anterior approach, with fusion BLUEWATER SURX16MM SCREWS FDA Start: 09-03-2020 Discectomy, spine, cervical, anterior approach, with fusion CORELINK FDA Start: 09-03-2020 Discectomy, spine, cervical, anterior approach, with fusion PATCH,AMNION 2X3CM FDA Start: 09-03-2020 Discectomy, spine, cervical, anterior approach, with fusion STRIP,BONE CANC [id number] FDA Start: 09-03-2020 Test blood sugar(s) one times daily. Dx: Type 2 DM - Controlled E11.9 Insulin: No Start: 07-17-2018 Comment on above: Test blood sugar(s) one times daily. Dx: Type 2 DM - Controlled E11.9 Insulin: No Blood Sugar Diagnostic (Freestyle Lite Strips) strip Start: 09-15-2022 Blood Sugar Diagnostic (Freestyle Lite Strips) strip Start: 09-15-2022 End: 09-15-2022 Blood Sugar Diagnostic (Freestyle Lite Strips) strip Start: 09-15-2022 Blood Sugar Diagnostic (Freestyle Lite Strips) strip Start: 09-15-2022 End: 09-15-2022 Blood Sugar Diagnostic (Freestyle Lite Strips) strip Start: 09-15-2022 Blood Sugar Diagnostic (Freestyle Lite Strips) strip Start: 09-15-2022 End: 09-15-2022 Blood Sugar Diagnostic (Freestyle Lite Strips) strip Start: 09-15-2022 Blood Sugar Diagnostic (Freestyle Lite Strips) strip Start: 09-15-2022 End: 09-15-2022 Blood Sugar Diagnostic (Freestyle Lite Strips) strip Start: 09-15-2022 Blood Sugar Diagnostic (Freestyle Lite Strips) strip Start: 09-15-2022 End: 09-15-2022 PATCH,AMNION 2X3CM FDA Start: 07-18-2023 ()[id number] [id number] FDA Start: 07-18-2023 ()[id number] [id number] FDA Start: 07-18-2023 Blood Sugar Diagnostic (Freestyle Lite Strips) strip Start: 09-15-2022 Blood Sugar Diagnostic (Freestyle Lite Strips) strip Start: 09-15-2022 End: 09-15-2022 PATCH,AMNION 2X3CM FDA Start: 07-18-2023 Blood Sugar Diagnostic (Freestyle Lite Strips) strip Start: 09-15-2022 Blood Sugar Diagnostic (Freestyle Lite Strips) strip Start: 09-15-2022 End: 09-15-2022 PATCH,AMNION 2X3CM FDA Start: 07-18-2023 Blood Sugar Diagnostic (Freestyle Lite Strips) strip Start: 09-15-2022 Blood Sugar Diagnostic (Freestyle Lite Strips) strip Start: 09-15-2022 End: 09-15-2022 PATCH,AMNION 2X3CM FDA Start: 07-18-2023 Blood Sugar Diagnostic (Freestyle Lite Strips) strip Start: 09-15-2022 Blood Sugar Diagnostic (Freestyle Lite Strips) strip Start: 09-15-2022 End: 09-15-2022 FDA Start: 07-18-2023 FDA Start: 07-18-2023 FDA Start: 07-18-2023 FDA Start: 07-18-2023 FDA Start: 07-18-2023 FDA Start: 07-18-2023 FDA Start: 07-18-2023 FDA Start: 07-18-2023 FDA Start: 07-18-2023 FDA Start: 07-18-2023 FDA Start: 07-18-2023 FDA Start: 07-18-2023 FDA Start: 07-18-2023 FDA Start: 07-18-2023 FDA Start: 07-18-2023 FDA Start: 07-18-2023 PATCH,AMNION 2X3CM FDA Start: 07-18-2023 Blood Sugar Diagnostic (Freestyle Lite Strips) strip Start: 07-18-2024 Blood Sugar Diagnostic (Freestyle Lite Strips) strip Start: 09-15-2022 End: 09-15-2022 Blood Sugar Diagnostic (Freestyle Lite Strips) strip Start: 09-15-2022 End: 07-18-2024 PATCH,AMNION 2X3CM FDA Start: 07-18-2023 Blood Sugar Diagnostic (Freestyle Lite Strips) strip Start: 07-18-2024 Blood Sugar Diagnostic (Freestyle Lite Strips) strip Start: 09-15-2022 End: 09-15-2022 Blood Sugar Diagnostic (Freestyle Lite Strips) strip Start: 09-15-2022 End: 07-18-2024 PATCH,AMNION 2X3CM FDA Start: 07-18-2023 Blood Sugar Diagnostic (Freestyle Lite Strips) strip Start: 07-18-2024 Blood Sugar Diagnostic (Freestyle Lite Strips) strip Start: 09-15-2022 End: 09-15-2022 Blood Sugar Diagnostic (Freestyle Lite Strips) strip Start: 09-15-2022 End: 07-18-2024 PATCH,AMNION 2X3CM FDA Start: 07-18-2023 Blood Sugar Diagnostic (Freestyle Lite Strips) strip Start: 07-18-2024 Blood Sugar Diagnostic (Freestyle Lite Strips) strip Start: 09-15-2022 End: 09-15-2022 Blood Sugar Diagnostic (Freestyle Lite Strips) strip Start: 09-15-2022 End: 07-18-2024 PATCH,AMNION 2X3CM FDA Start: 07-18-2023 Blood Sugar Diagnostic (Freestyle Lite Strips) strip Start: 07-18-2024 Blood Sugar Diagnostic (Freestyle Lite Strips) strip Start: 09-15-2022 End: 09-15-2022 Blood Sugar Diagnostic (Freestyle Lite Strips) strip Start: 09-15-2022 End: 07-18-2024 PATCH,AMNION 2X3CM FDA Start: 07-18-2023 Blood Sugar Diagnostic (Freestyle Lite Strips) strip Start: 07-18-2024 Blood Sugar Diagnostic (Freestyle Lite Strips) strip Start: 09-15-2022 End: 09-15-2022 Blood Sugar Diagnostic (Freestyle Lite Strips) strip Start: 09-15-2022 End: 07-18-2024 Goals Date Patient Goal Desired Activity /State Functional Status Date Assessment Result Facility 12-12-2023 Functional status Ambulates;Up ad shruti [facility] Work Phone: 10-26-2023 Functional status Ambulates [facility] Work Phone: 07-20-2023 Functional status Bedrest [facility] Work Phone: 07-20-2023 Functional status None [facility] Work Phone: Mental Status Date Assessment Result Facility 12-12-2023 Cognitive function Voice/Name [facility] Work Phone: 11-01-2023 Cognitive function Awake;Alert;Appropriat e [facility] Work Phone: 10-26-2023 Cognitive function Voice/Name [facility] Work Phone: 10-21-2023 Cognitive function Voice/Name [facility] Work Phone: 07-20-2023 Cognitive function Voice/Name [facility] Work Phone: 05-15-2023 Cognitive function Level Of Consciousness Sedated [facility] Work Phone: 05-15-2023 Cognitive function Voice/Name [facility] Work Phone: 06-20-2022 Cognitive function Voice/Name [facility] Work Phone: 03-01-2022 Cognitive function Level Of Cons ciousness Awake;Alert;Appropriate;Follow s Commands [facility] Work Phone: 03-01-2022 Cognitive function Voice/Name [facility] Work Phone: Clinical Notes 09-14-2011 to 01-27-2025 Note Date & Type Note Facility 01-27-2025 Evaluation note Diagnosis Onset Date Resolution Essential (primary) hypertension acute January 27, 2025 10:41am Hyperlipemia acute January 27 025 10:41am Type 2 diabetes mellitus acute January 27, 2025 10:41am Vasovagal episode acute January 272024 10:41am Cervical radiculopathy acute 2024 7:43am History of fusion of cervical spine acute January 31, 2025 7:43am Scoliosis acute January 31 7:43am Status post lumbar spinal fusion acute January 31, 2025 7:43am [facility] Work Phone: 1(242) 804-361006-16-2025 Evaluation note* Diagnosis Onset Date Resolution Status Admit Date Essential (primary) hypertension acute January 27, 2025 10:41am Hyperlipemia acute January 27 10:41am Type 2 diabetes mellitus acute January 27, 2025 10:41am Vasovagal episode acute January 272024 10:41am Cervical radiculopathy acute 2024 7:43am History of fusion of cervical spine acute January 31, 2025 7:43am Scoliosis acute January 31 7:43am Status post lumbar spinal fusion acute January 31, 2025 7:43am Essential (primary) hypertension acute February 25, 2025 8:41am Hyperlipemia acute February 25 8:41am Syncope acute February 25 8:41am H/O coronary artery bypass surgery September 14, 2011 resolved February 25 8:41am Nonrheumatic aortic (valve) stenosis with insufficiency inactive February 25, 2025 8:41am [facility] Work Phone: 1(810) 177-880306-16-2025 Evaluation note* Diagnosis Onset Date Resolution Status Admit Date Essential (primary) hypertension acute January 27, 2025 10:41am Hyperlipemia acute January 27 10:41am Type 2 diabetes mellitus acute January 27, 2025 10:41am Vasovagal episode acute January 272024 10:41am Cervical radiculopathy acute 2024 7:43am History of fusion of cervical spine acute January 31, 2025 7:43am Scoliosis acute January 31 7:43am Status post lumbar spinal fusion acute January 31, 2025 7:43am Hyperlipemia acute February 25 8:41am Syncope acute February 25 8:41am H/O coronary artery bypass surgery September 14, 2011 resolved February 25 8:41am Nonrheumatic aortic (valve) stenosis with insufficiency inactive February 25, 2025 8:41am [facility] Work Phone: 1(208) 790-911602-21-2025 Evaluation note* Diagnosis Onset Date Resolution Status Admit Date Status post lumbar spinal fusion acute October 04 9:49am Left foot pain suspected September 152024 9:49am [employer] Work Phone: 1(838) 712-368502-21-2025 Evaluation note* Diagnosis Onset Date Resolution Status Admit Date Status post lumbar spinal fusion acute October 04 9:49am Left foot pain suspected September 152024 9:49am Essential (primary) hypertension acute January 27, 2025 10:41am Hyperlipemia acute January 27 10:41am Type 2 diabetes mellitus acute January 27, 2025 10:41am Vasovagal episode acute January 272024 10:41am [employer] Work Phone: 1(597) 284-549408-08-2024 [facility]04-30-2024 Progress note Author Tarik [facility] December 12, 2023 10:31am Note Date/Time December 12, 2023 10: 29am [facility] Medical Records Department [address] [place] [address] Progress Note - Infect Disease 12/12/23 1028 MR#: [id number] Acct: [id number] Name: JARET BATES Rep #:[id number] : 1955 68 From: Tarik cao MD PCP: Dr. Marshall Bear MD Status:ADM IN Location: AR3 [id number] Physical Exam Narrative Pain is a little better, no fever Const alert and no apparent distress Resp normal air movement and clear to auscultation bilaterally Cardio regular rate and regular rhythm GI soft to palpation, non-tender and non-distended Skin no rashes or lesions noted ID ID: Route of nutrition/ use of supplements: [] Nutritional Intake: [] IV Site: [] Gan Catheter: [] Assessment & Plan Assessment/Plan (1) History of discitis: (2) History of osteomyelitis: PLAN: Had lumbar laminectomy and discectomy L4-5 on 07/18/[address] Godoy here. After that, developed progressive pain, new fever and confusion. MRI shows suspected discitis/osteo. 10/25/23 had aspiration of disc/bone with orosco culture sent. No organism seen on gram stain, cxs finalized as neg. Discharged with picc, 6 weeks iv vanc/ceftriaxone with stop date 12/03/23 with weekly labs. Did well as outpt, followed up with ID, completed abx last week and picc was removed. No fever, normal wbc. CT and MRI shows osteo, but bone changes from osteo are expected to be present for several months even after successful treatment. Agree with continuing to monitor off of abx, recommend he follow up with pain management and spine surgery. Will follow as needed 12/12/23 1031 <Electronically signed by Tarik Wilkinson MD> Cosigner Signature (if applicable): CC: ~ Signed [facility] Work Phone: 1(403) 242-481504-29-2024 Progress note Author Ochoa Figueroa [facility] December 11, 2023 3:23pm Note Date/Time December 11, 2023 11: 01am [facility] Medical Records Department [address] [place] [address] Progress Note - Hospitalist 12/11/23 1059 MR#: [id number] Acct: [id number] Name: PAULOJARET QUESADA Rep #:[id number] : 1955 68 From: Ochoa Mcfarlane PCP: Dr. Marshall Bear MD Status:ADM IN Location: [place] [address]-1 Reason for Visit Reason for Visit: Diagnoses Low back pain, unspecified (12/10/23) Acute kidney failure, unspecified (12/10/23) Other malaise (12/10/23) Personal history of other diseases of the musculoskeletal system and connective tissue (12/10/23) Objective Data Objective Data Vital Signs: Vital Signs Temp Pulse Resp BP Pulse Ox O2 Del Method 97.4 F L 88 18 150/101 H 98 Room Air 12/11/23 08:34 12/11/23 10:29 12/11/23 10:29 12/11/23 10:29 12/11/23 10:29 12/11/23 10:29 Oxygen Delivery Method Room Air Weight: 172 lb 6.424 oz Body Mass Index (BMI) 24.7 Intake & Output: Intake and Output for Last 24 Hours 12/09/23 12/10/23 12/11/23 23:59 23:59 23:59 Intake Total 2550 / 2550 400 / 400 Balance 2550 / 2550 400 / 400 Lab / Micro Data 12/10/23 04:43 12/10/23 04:43 Labs: Laboratory Results - last 24 hr 12/10/23 11:10: POC Glucose 144 H 12/10/23 16:41: POC Glucose 99 12/10/23 21:03: POC Glucose 136 H 12/11/23 05:12: POC Glucose 95 Physical Exam Narrative Seen and examined. Patient and he walked 3 rounds of nursing station. Back pain is much improved. Patient had MRI in the morning but report not available yet Patient denies any fall. Lower back pain started spontaneously more severe on the right side of lumbar area. Pain with radiation to the right thigh lower extremity.Patient completed 6 weeks of IV vancomycin about 1 to 2 weeks ago for discitis. He follows spine surgeon [facility]. Seen and examined General: Alert, Oriented x3, Cooperative HEENT: Atraumatic, PERRLA, EOMI, Normocephalic Oral: No Gingival or Mucosal Lesions/ Ulcerations Neck: Supple, No JVD, Negative Carotid Bruits Chest wall/Lungs: Air entry diminished in bilateral lung bases. No crepitation/rhonchi Cardiovascular: Regular rate, Regular Rhythm, Normal S1, Normal S2, No M/G/R Abdomen: Bowel Sounds Present, Soft, Non Tender, Non-Distended : No dysuria. No renal angle tenderness. No suprapubic tenderness. Extremities: No edema, Capillary Refill Less than 3 Seconds Skin: No rashes, No breakdown Musculoskeletal/spine: Very mild tenderness present on the lumbar spine and right-sided paraspinal muscles. No pain or tenderness even 30 degree of SLR test No tenderness in knee or hip joints. ROM severely limited at lumbar back and hip joints because of muscle spasm Neurological: Cranial nerves II-XII grossly intact, DTR 2+/4. No acute focal neurological deficit. Psych/Mental Status: Flat affect Assessment & Plan Assessment/Plan (1) Recurrent low back pain: (2) History of discitis: (3) JUNI (acute kidney injury): (4) Debility: PLAN: Plan Patient is a 68-year-old male who presented [facility] ED on 12/10/2023 with recurrent low back pain. 1. Recurrent low back pain, recent history of L4-5 laminectomy complicated by discitis/osteomyelitis, debility ? Admit under inpatient [facility] to [facility]. MRI lumbar spine with and without IVcontrast ordered. Was given one-time doses of antibiotics in the ED, will hold on further antibiotics for now until MRI results. await MRI result prior to orthopedic consult. Pain control with scheduled Tylenol, oxycodone as needed and IV Dilaudid as needed. PT/OT/case management consulted. 12/09: Patient had 6 weeks of IV antibiotics vancomycin, completed 1 to 2 weeks ago for discitis/osteomyelitis. ID consulted requested 12/10: Patient had MRI ordered. Official report not available. Acute discitis/osteomyelitis needs to be ruled out before discharge. 2. Mild JUNI ? Creatinine 1.52 on admit, recent baseline around 1.1-1.2. Suspect mild prerenal JUNI due to recent poor p.o. intake. IV fluids given in the ED. Follow-up a.m. BMP and urine output. 12/09: BUNs/creatinine 23/1.21. Improvement in creatinine. 12/10: BUNs/creatinine improved to 23/1.21. His creatinine runs around 1.10-1.25. I think he achieved his baseline JUNI resolved. BP elevated 151/87 without formal diagnosis of hypertension: Started on amlodipine 5 mg daily. Patient will need home or ambulatory BP monitoring to diagnose hypertension in the outpatient to be followed by PCP. Chronic medical conditions: ? History of CAD s/p CABG/hyperlipidemia: Continue home aspirin and statin. ? GERD: Continue home PPI as needed. ? Tobacco dependence: Encouraged cessation. Nicotine replacement therapy available as needed. ? Type 2 diabetes mellitus: Home regimen of metformin 500 mg twice daily. Bloodglucose 128 on admit. Recent A1c 6.4%. Sliding scale insulin with meals ordered. ? Neuropathy: Continue home gabapentin. ? Asthma: Stable on room air. Continue home inhalers as needed. DVT prophylaxis: Heparin subcu CODE STATUS: Full code, verified Expected disposition: TBD Plan of care discussed with the patient's near the bedside Clinical Impression(s) from Imaging Studies Lumbar Spine CT 12/09/23 23:11 IMPRESSION: Advanced degenerative changes. Similar straightening of the usual lordotic curvature and levoscoliosis. Similar degree in size of multifocal bony erosions of the opposing vertebral body endplates at L4-5, likely due to indolent and actively treated osteomyelitis-discitis. Mild surrounding increased bony sclerosis around the erosions suggesting early healing-reactive bone formation. They are not yet healed. No new erosions or significant change in surrounding soft tissues. No enhancing paraspinous or intraspinous abscess. Charges/Coding Visit Charges Inpatient E&M: 22139 Subs Hosp L2 12/11/23 1523 <Electronically signed by Ochoa Figueroa MD> Cosigner Signature (if applicable): CC: ~ Signed [facility] Work Phone: 1(364) 585-934304-29-2024 Consult note Author Tarik Wilkinson [facility] December 11, 2023 1:07pm Note Date/Time December 11, 2023 1:0 7pm [facility] Medical Records Department [address] [place] [address] Consultation - Infectious Dx 12/11/23 1302 MR#: [id number] Acct: [id number] Name: JARET BATES Rep #:[id number] : 1955 68 From: Tarik cao MD PCP: Dr. Marshall Bear MD Status:ADM IN Location: [facility] [id number] Assessment & Plan Assessment/Plan (1) History of discitis: (2) History of osteomyelitis: PLAN: Had lumbar laminectomy and discectomy L4-5 on 07/18/[address] Godoy here. After that, developed progressive pain, new fever and confusion. MRI shows suspected discitis/osteo. 10/25/23 had aspiration of disc/bone with orosco culture sent. No organism seen on gram stain, cxs finalized as neg. Discharged with picc, 6 weeks iv vanc/ceftriaxone with stop date 12/03/23 with weekly labs. Did well as outpt, followed up with ID, completed abx last week and picc was removed. Repeat MRI pending. No fever, normal wbc. CT shows osteo, but bone changes from osteo are expected to be present for several months even after successful treatment. Agree with continuing to monitor off of abx, ok for d/c home as longas MRI shows no acute changes. Will follow, thank you HPI Consult Data Date of Consult: 12/11/23 HPI Narrative Reason for Consultation: back pain HPI Narrative: JARET BATES, is a 68 M with admit 10/2023. Had lumbar laminectomy and discectomy L4-5 on 07/18/[address] Godoy here. After that, developed progressive pain, new fever and confusion. MRI shows suspected discitis/osteo. 10/25/23 had aspiration of disc/bone with orosco culture sent. No organism seen on gram stain, cxs finalized as neg. Discharged with picc, 6 weeks iv vanc/ceftriaxone with stop date 12/03/23 with weekly labs. Did well as outpt, followed up with ID, completed abx last week and picc was removed. 12/06 startedto have worsened pain, came to ED 12/09 with ongoing low back pain. No fever or chills, no n/v/d. CT and MRI done. Spine incision well healed. Full ROS performed and neg except as noted above. [facility] Medical History Agent orange exposure Alcohol use Ambulates with cane Arthritis Arthropathy of cervical facet joint Asthma Atherosclerotic heart disease of [place] coronary artery without angina pectoris Back pain Bilateral primary osteoarthritis of knee Bilirubinuria BPH w urinary obs/LUTS Cancer Cardiology follow-up encounter Cervical spondylosis Chondromalacia of both patellae Chondromalacia, left knee Chondromalacia, right knee Contact with or exposure to other viral diseases COVID-19 virus detected (11/19/20) Degeneration of cervical disc without myelopathy Degeneration of intervertebral disc of lumbosacral region Diabetes Essential (primary) hypertension Fibromyalgia Fusion of spine, cervical region High cholesterol (~08/21/23) History of echocardiogram History of IBS History of pain when walking History of steroid therapy History of stress test Hyperlipemia Injury of head and neck Left knee DJD Lumbosacral radiculopathy at L5 Nonrheumatic aortic (valve) stenosis with insufficiency Obesity Opioid dependence Prostate disease Radiculopathy of lumbosacral region Restless legs Right knee DJD Shortness of breath on exertion Smokeless tobacco use Spinal stenosis of lumbosacral region Spondylosis of lumbosacral region without myelopathy or radiculopathy Syncope Tear of medial meniscus of right knee Tension headache Type 2 diabetes mellitus Wears hearing aid Home Medications aspirin 81 mg tablet,delayed release 81 mg PO DAILY HEART HEALTH 12/23/15 [History Last Taken 11/01/23] multivitamin 1 tab PO DAILY supplement 07/09/19 [History Last Taken 11/01/23] gabapentin 100 mg capsule 200 mg PO TID neuropathy 05/14/20 [History Last Taken 11/01/23] naproxen sodium 220 mg capsule (Aleve) 220 mg PO BID PRN Pain 02/04/22 [History Last Taken 11/01/23] albuterol sulfate 90 mcg/actuation aerosol inhaler 1 - 2 puff inhalation Q4H PRNPRN Wheezing #8.5 grams 04/21/22 [Rx Last Taken Unknown] handicap placard #1 ea 04/21/22 [Rx Last Taken Unknown] blood sugar diagnostic (FreeStyle Lite Strips) #100 ea 09/15/22 [Rx Last Taken Unknown] blood-glucose meter (FreeStyle Lite Meter kit) #1 ea 09/15/22 [Rx Last Taken Unknown] fluticasone propionate 50 mcg/actuation nasal spray,suspension 1 - 2 spray intranasal BID PRN allergies, congestion #16 grams 04/27/23 [Rx Last Taken 10/31/23] metformin 500 mg tablet 500 mg PO BID DIABETES #180 tabs 04/27/23 [Rx Last Taken 11/01/23] linaclotide 72 mcg capsule 72 mcg PO DAILY IBS #90 caps 06/27/23 [Rx Last Taken 11/01/23] acetaminophen 500 mg capsule 1,000 mg PO Q6H PRN pain 07/18/23 [History Last Taken 07/17/23 18:00] atorvastatin 40 mg tablet 40 mg PO QHS CHOLESTEROL #90 tabs 08/21/23 [Rx Last Taken 11/01/23] omeprazole 40 mg capsule,delayed release 40 mg PO DAILY PRN Reflux #30 caps 08/21/23 [Rx Last Taken 11/01/23] trazodone 50 mg tablet 50 - 100 mg (1 - 2 x 50 mg) PO QHS sleep #90 tabs 08/21/23 [Rx Last Taken 10/31/23] ondansetron 4 mg disintegrating tablet 4 mg PO Q6H PRN nausea and vomiting #20 tabs 10/03/23 [Rx Last Taken Unknown] oxycodone 5 mg tablet 7.5 mg PO TID PRN PRN pain 10/21/23 [History Last Taken 11/01/23] ceftriaxone 2 gram intravenous solution 2 g IV Q24H 38 days 10/26/23 [Rx Last Taken 10/31/23] baclofen 10 mg tablet 10 mg PO TID PRN PRN muscle spasm 12/10/23 [History Last Taken Unknown] Allergy/AdvReac Type Severity Reaction Status Date / Time adhesive tape Allergy Rash Verified 12/09/23 21:08 sertraline [From Zoloft] AdvReac Unknown Verified 12/09/23 21:08 Family History Brother Heart disease Myocardial infarction 60's CAD (coronary artery disease) Father Myocardial infarction 65 CAD (coronary artery disease) Mother HLD (hyperlipidemia) when son was 16 following MVA, healthy aside HLD. Surgical History H/O cervical spine surgery (08/2020) H/O coronary artery bypass surgery (09/14/11) History of back surgery History of carpal tunnel release History of herniorrhaphy History of lateral meniscus repair of right knee (~2021) History of left heart catheterization (09/09/11) Hx laparoscopic cholecystectomy (~11/2022) Hx of bilateral cataract extraction S/P laminectomy Status post discectomy for herniated nucleus pulposus Social History household members: spouse Smoking Status: Never smoker Smokeless tobacco user: chewing tobacco alcohol intake: current alcohol intake frequency: a few times a month substance use type: does not use caffeine: Yes Type: coffee Number of servings: 2 Physical Exam Const alert, oriented x3 and no apparent distress General Appearance: cooperative HEENT normocephalic and head/scalp atraumatic Eyes PERRL and EOMs intact bilaterally Neck supple and No nodes Resp normal air movement and clear to auscultation bilaterally Cardio regular rate and regular rhythm GI soft to palpation, non-tender and non-distended Extremity General Extremity: Negative for edema Skin no rashes or lesions noted Neuro CN's II-XII intact bilaterally Lab / Micro Data Attestation: I reviewed the patient's lab results. 12/10/23 04:43 12/10/23 04:43 Labs: Laboratory Results - last 24 hr 12/10/23 16:41: POC Glucose 99 12/10/23 21:03: POC Glucose 136 H 12/11/23 05:12: POC Glucose 95 12/11/23 11:50: POC Glucose 103 12/11/23 1307 <Electronically signed by Tarik Wilkinson MD> Cosigner Signature (if applicable): CC: Dr. Marshall Bear MD~ Signed [facility] Work Phone: 1(297) 676-551504-28-2024 Progress note Author Ochoa Figueroa [facility] December 10, 2023 11:21am Note Date/Time December 10, 2023 7:4 7am [facility] Medical Records Department [address] [place] [address] Progress Note - Hospitalist 12/10/23 0744 MR#: [id number] Acct: [id number] Name: JARET BATES Rep #:[id number] : 1955 68 From: Ochoa Mcfarlane PCP: Dr. Marshall Bear MD Status:ADM IN Location: [place] [address] Reason for Visit Reason for Visit: Diagnoses Low back pain, unspecified (12/10/23) Acute kidney failure, unspecified (12/10/23) Other malaise (12/10/23) Personal history of other diseases of the musculoskeletal system and connective tissue (12/10/23) Objective Data Objective Data Vital Signs: Vital Signs Temp Pulse Resp BP Pulse Ox O2 Del Method 98.0 F 86 16 151/95 H 98 Room Air 12/10/23 04:21 12/10/23 04:21 12/10/23 04:21 12/10/23 04:21 12/10/23 04:21 12/10/23 04:21 Oxygen Delivery Method Room Air Weight: 172 lb 6.424 oz Body Mass Index (BMI) 24.7 Intake & Output: Intake and Output for Last 24 Hours 12/08/23 12/09/23 12/10/23 23:59 23:59 23:59 Intake Total 1889 Balance 1889 Lab / Micro Data 12/10/23 04:43 12/10/23 04:43 Labs: Laboratory Results - last 24 hr 12/09/23 21:37: WBC 6.1, RBC 3.71 L, Hgb 10.9 L, Hct 33.0 L, MCV 88.9, MCH 29.4,MCHC 33.0, RDW Std Deviation 44.4 H, RDW Coeff of [place] 13.5, Plt Count 278, MPV 8.2, Immature Gran % (Auto) 0.200, Neut % (Auto) 62.5, Lymph % (Auto) 22.6, [place]% (Auto) 9.7, Eos % (Auto) 4.3, Baso % (Auto) 0.7, Absolute Neuts (auto) 3.8, Absolute Lymphs (auto) 1.38, Nucleated RBC % 0, ESR 32 H, Sodium 138, Potassium 4.0, Chloride 105, Carbon Dioxide 26.0, Anion Gap 7, BUN 31 H, Creatinine 1.52 H, Estim Creat Clear Calc 46.69, Est GFR (MDRD) Af Amer 59 L, Est GFR (MDRD) Non-Af 48 L, BUN/Creatinine Ratio 20.4 H, Glucose 128 H, Calcium 9.4, C-React Prot Ext Range 26.80 H 12/10/23 04:43: WBC 5.7, RBC 3.63 L, Hgb 10.5 L, Hct 32.5 L, MCV 89.5, MCH 28.9,MCHC 32.3, RDW Std Deviation 44.5 H, RDW Coeff of Frankie 13.4, Plt Count 273, MPV 8.2, Sodium 138, Potassium 3.7, Chloride 105, Carbon Dioxide 27.0, Anion Gap 6, BUN 23 H, Creatinine 1.21, Estim Creat Clear Calc 58.65, Est GFR (MDRD) Af Amer 76, Est GFR (MDRD) Non-Af 63, BUN/Creatinine Ratio 19.0, Glucose 129 H, Calcium 8.9 12/10/23 05:22: POC Glucose 129 H Radiography Diagnostic Testing: Radiology Impression Lumbar Spine CT 12/09/23 23:11 IMPRESSION: Advanced degenerative changes. Similar straightening of the usual lordotic curvature and levoscoliosis. Similar degree in size of multifocal bony erosions of the opposing vertebral body endplates at L4-5, likely due to indolent and actively treated osteomyelitis-discitis. Mild surrounding increased bony sclerosis around the erosions suggesting early healing-reactive bone formation. They are not yet healed. No new erosions or significant change in surrounding soft tissues. No enhancing paraspinous or intraspinous abscess. Electronically Signed: Rebecca Woodward MD at 23:58 EDT , Physical Exam Narrative Seen and examined. Patient denies any fall. Abdominal pain started spontaneously more severe on the right side of lumbar area. Pain with radiation to the right thigh lower extremity.Patient completed 6 weeks of IV vancomycin about 1 to 2 weeks ago for discitis. He follows spine surgeon [facility]. Seen and examined General: Alert, Oriented x3, Cooperative HEENT: Atraumatic, PERRLA, EOMI, Normocephalic Oral: No Gingival or Mucosal Lesions/ Ulcerations Neck: Supple, No JVD, Negative Carotid Bruits Chest wall/Lungs: Air entry diminished in bilateral lung bases. No crepitation/rhonchi Cardiovascular: Regular rate, Regular Rhythm, Normal S1, Normal S2, No M/G/R Abdomen: Bowel Sounds Present, Soft, Non Tender, Non-Distended : No dysuria. No renal angle tenderness. No suprapubic tenderness. Extremities: No edema, Capillary Refill Less than 3 Seconds Skin: No rashes, No breakdown Musculoskeletal/spine: Tenderness present on the lumbar spine and right-sided paraspinal muscles. SLR +10 degree of RLE elevation and 60 degrees of LAD. No tenderness in knee or hip joints. ROM severely limited at lumbar back and hip joints because of muscle spasm Neurological: Cranial nerves II-XII grossly intact, DTR 2+/4. No acute focal neurological deficit. Psych/Mental Status: Flat affect Assessment & Plan Assessment/Plan (1) Recurrent low back pain: (2) History of discitis: (3) JUNI (acute kidney injury): (4) Debility: PLAN: Plan Patient is a 68-year-old male who presented [facility] ED on 12/10/2023 with recurrent low back pain. 1. Recurrent low back pain, recent history of L4-5 laminectomy complicated by discitis/osteomyelitis, debility ? Admit under inpatient status to [facility]. MRI lumbar spine with and without IVcontrast ordered. Was given one-time doses of antibiotics in the ED, will hold on further antibiotics for now until MRI results. await MRI result prior to orthopedic consult. Pain control with scheduled Tylenol, oxycodone as needed and IV Dilaudid as needed. PT/OT/case management consulted. 12/09: Patient had 6 weeks of IV antibiotics vancomycin, completed 1 to 2 weeks ago for discitis/osteomyelitis. ID consulted requested 2. Mild JUNI ? Creatinine 1.52 on admit, recent baseline around 1.1-1.2. Suspect mild prerenal JUNI due to recent poor p.o. intake. IV fluids given in the ED. Follow-up a.m. BMP and urine output. 12/09: BUNs/creatinine 23/1.21. Improvement in creatinine. BP elevated 151/87 without formal diagnosis of hypertension: Started on amlodipine 5 mg daily. Patient will need home or ambulatory BP monitoring to diagnose hypertension in the outpatient to be followed by PCP. Chronic medical conditions: ? History of CAD s/p CABG/hyperlipidemia: Continue home aspirin and statin. ? GERD: Continue home PPI as needed. ? Tobacco dependence: Encouraged cessation. Nicotine replacement therapy available as needed. ? Type 2 diabetes mellitus: Home regimen of metformin 500 mg twice daily. Bloodglucose 128 on admit. Recent A1c 6.4%. Sliding scale insulin with meals ordered. ? Neuropathy: Continue home gabapentin. ? Asthma: Stable on room air. Continue home inhalers as needed. DVT prophylaxis: Heparin subcu CODE STATUS: Full code, verified Expected disposition: TBD Plan of care discussed with the patient's near the bedside Clinical Impression(s) from Imaging Studies Lumbar Spine CT 12/09/23 23:11 IMPRESSION: Advanced degenerative changes. Similar straightening of the usual lordotic curvature and levoscoliosis. Similar degree in size of multifocal bony erosions of the opposing vertebral body endplates at L4-5, likely due to indolent and actively treated osteomyelitis-discitis. Mild surrounding increased bony sclerosis around the erosions suggesting early healing-reactive bone formation. They are not yet healed. No new erosions or significant change in surrounding soft tissues. No enhancing paraspinous or intraspinous abscess. Charges/Coding Visit Charges Inpatient E&M: 59014 Subs Hosp L2 12/10/23 1121 <Electronically signed by Ochoa Figueroa MD> Cosigner Signature (if applicable): CC: ~ Signed [facility] Work Phone: [phone]) 490-757504-28-2024 History and physical note Author Giuliano Pacheco [facility] December 10, 2023 4:40am Note Date/Time December 10, 2023 12: 14am [facility] Medical Records Department [address] [address] H&P Exam - Hospitalist 12/10/23 0014 MR#: [id number] Acct: [id number] Name: JARET BATES Rep #:[id number] : 1955 68 From: Giuliano mcconnell DO PCP: Dr. Marshall Bear MD Status:ADM IN Location: [facility] MT773-9 HPI - General General Date of Admission: 12/10/23 Date of Service: 12/10/23 Chief Complaint: Recurrent low back pain with recent history of discitis HPI Narrative JARET BATES, is a 68 M who presented to [facility] ED on 12/10/2023 with recurrent low back pain. Patient had a left lumbar laminectomy L4-5 with discectomy and removal of ligamentum flavum done here by orthopedics on 07/18. He tolerated the procedure well, was discharged home on 07/20 without issue. He unfortunately was hospitalized again here from 10/20-10/25 with worsening back pain. Was found on lumbar MRI on 10/22 to have vertebral osteomyelitis and discitis of L4- 5. Notably had no epidural abscess at that time. Had aspiration of disc/bone on 10/24 with orosco cultures sent that were negative. ID followed, patient had PICC line placed and completed 6-week courseof IV vancomycin and ceftriaxone with stop date on 12/02. Patient had PICC removed on 12/04. He then presented to the ED today with worsening low back pain. I saw patient at the bedside in the ED. Patient was sitting up in bed and conversing normally. He did appear to be in some pain and discomfort when I sawhim. Patient states that the pain in his back has been bad dating back to May of last year when he states this all started. Has had times of betterrelief of pain but is constantly in some pain. States that after the PICC was removed 5 days ago, he felt like his low back pain was worsening again. He denies any fevers or chills associated with this. He lives at home with his and has never required rehab study placement after any hospitalizations. However, states that he is having significant difficulty with getting up and moving around due to the persistent pain. He does state that the pain seems to wrap around to his right lower back and down his right leg down to the knee. Hedid mention that he had a small fall onto his knees a few weeks ago at home. There is a very small abrasion noted on the left knee. He denies any significant hip or knee pain after the fall but generally states his right hip and knee have continued to be sore since then. He states the pain medication has been mildly helpful for him. Labs in the ED were notable for a mild JUNI with creatinine 1.52 from baseline around 1.1-1.2, as well as ESR 32 and CRP 26. ESR notably was stable between 9-18 on 3 recent lab draws. WBC count was normal at 6. Patient has been afebrileand hemodynamically stable since arrival to the ED. CT lumbar spine with IV contrast showed similar findings to previous CT imaging with no acute changes. Notably his CT lumbar spine in October was fairly benign but MRI lumbar spine showed findings consistent with osteomyelitis/discitis. Given patient's complicated recent history and worsening low back pain, he was admitted for further management. [facility] Medical History (Updated 12/10/23 @ 04:[address] Giuliano Pacheco, DO) Agent orange exposure Alcohol use Ambulates with cane Arthritis Arthropathy of cervical facet joint Asthma Atherosclerotic heart disease of [place] coronary artery without angina pectoris Back pain Bilateral primary osteoarthritis of knee Bilirubinuria BPH w urinary obs/LUTS Cancer Cardiology follow-up encounter Cervical spondylosis Chondromalacia of both patellae Chondromalacia, left knee Chondromalacia, right knee Contact with or exposure to other viral diseases COVID-19 virus detected (11/19/20) Degeneration of cervical disc without myelopathy Degeneration of intervertebral disc of lumbosacral region Diabetes Essential (primary) hypertension Fibromyalgia Fusion of spine, cervical region High cholesterol (~08/21/23) History of echocardiogram History of IBS History of pain when walking History of steroid therapy History of stress test Hyperlipemia Injury of head and neck Left knee DJD Lumbosacral radiculopathy at L5 Nonrheumatic aortic (valve) stenosis with insufficiency Obesity Opioid dependence Prostate disease Radiculopathy of lumbosacral region Restless legs Right knee DJD Shortness of breath on exertion Smokeless tobacco use Spinal stenosis of lumbosacral region Spondylosis of lumbosacral region without myelopathy or radiculopathy Syncope Tear of medial meniscus of right knee Tension headache Type 2 diabetes mellitus Wears hearing aid Home Medications aspirin 81 mg tablet,delayed release 81 mg PO DAILY HEART HEALTH 12/23/15 [History Last Taken 11/01/23] multivitamin 1 tab PO DAILY supplement 07/09/19 [History Last Taken 11/01/23] gabapentin 100 mg capsule 200 mg PO TID neuropathy 05/14/20 [History Last Taken 11/01/23] naproxen sodium 220 mg capsule (Aleve) 220 mg PO BID PRN Pain 02/04/22 [History Last Taken 11/01/23] albuterol sulfate 90 mcg/actuation aerosol inhaler 1 - 2 puff inhalation Q4H PRNPRN Wheezing #8.5 grams 04/21/22 [Rx Last Taken Unknown] handicap placard #1 ea 04/21/22 [Rx Last Taken Unknown] blood sugar diagnostic (FreeStyle Lite Strips) #100 ea 09/15/22 [Rx Last Taken Unknown] blood-glucose meter (FreeStyle Lite Meter kit) #1 ea 09/15/22 [Rx Last Taken Unknown] fluticasone propionate 50 mcg/actuation nasal spray,suspension 1 - 2 spray intranasal BID PRN allergies, congestion #16 grams 04/27/23 [Rx Last Taken 10/31/23] metformin 500 mg tablet 500 mg PO BID DIABETES #180 tabs 04/27/23 [Rx Last Taken 11/01/23] linaclotide 72 mcg capsule 72 mcg PO DAILY IBS #90 caps 06/27/23 [Rx Last Taken 11/01/23] acetaminophen 500 mg capsule 1,000 mg PO Q6H PRN pain 07/18/23 [History Last Taken 07/17/23 18:00] atorvastatin 40 mg tablet 40 mg PO QHS CHOLESTEROL #90 tabs 08/21/23 [Rx Last Taken 11/01/23] omeprazole 40 mg capsule,delayed release 40 mg PO DAILY PRN Reflux #30 caps 08/21/23 [Rx Last Taken 11/01/23] trazodone 50 mg tablet 50 - 100 mg (1 - 2 x 50 mg) PO QHS sleep #90 tabs 08/21/23 [Rx Last Taken 10/31/23] ondansetron 4 mg disintegrating tablet 4 mg PO Q6H PRN nausea and vomiting #20 tabs 10/03/23 [Rx Last Taken Unknown] oxycodone 5 mg tablet 7.5 mg PO TID PRN PRN pain 10/21/23 [History Last Taken 11/01/23] ceftriaxone 2 gram intravenous solution 2 g IV Q24H 38 days 10/26/23 [Rx Last Taken 10/31/23] Allergy/AdvReac Type Severity Reaction Status Date / Time adhesive tape Allergy Rash Verified 12/09/23 21:08 sertraline [From Zoloft] AdvReac Unknown Verified 12/09/23 21:08 Family History Brother Heart disease Myocardial infarction 60's CAD (coronary artery disease) Father Myocardial infarction 65 CAD (coronary artery disease) Mother HLD (hyperlipidemia) when son was 16 following MVA, healthy aside HLD. Surgical History H/O cervical spine surgery (08/2020) H/O coronary artery bypass surgery (09/14/11) History of back surgery History of carpal tunnel release History of herniorrhaphy History of lateral meniscus repair of right knee (~2021) History of left heart catheterization (09/09/11) Hx laparoscopic cholecystectomy (~11/2022) Hx of bilateral cataract extraction S/P laminectomy Status post discectomy for herniated nucleus pulposus Social History household members: spouse Smoking Status: Never smoker Smokeless tobacco user: chewing tobacco alcohol intake: current alcohol intake frequency: a few times a month substance use type: does not use caffeine: Yes Type: coffee Number of servings: 2 ROS Constitutional Constitutional: Reports weakness; Denies chills, fatigue or fever(s) Cardiovascular Cardiovascular: Denies chest pain Respiratory/Chest Respiratory/Chest: Denies shortness of breath at rest Gastrointestinal Gastrointestinal: Denies abdominal pain, constipation or diarrhea Genitourinary Genitourinary: Denies dysuria Musculoskeletal Musculoskeletal: Reports arthralgias, back pain and joint pain; Denies joint swelling or myalgias Neurologic Neurologic: Reports abnormal gait; Denies dizziness, focal weakness, numbness, paresthesias or tingling Vital Signs Vital Signs Vital Signs: 12/09/23 21:08 12/09/23 22:27 12/09/23 23:07 Temperature 98.3 F 97.4 F L Temperature Source Oral Pulse Rate 119 H 91 88 Respiratory Rate 18 18 18 Blood Pressure 118/98 H 147/96 H Blood Pressure Mean 104 113 Pulse Ox 96 91 96 Oxygen Delivery Method Room Air Room Air Weight Weight: 78.3 kg Body Mass Index (BMI) 24.7 Physical Exam Const alert and oriented x3 Constitutional Narrative: Elderly male, sitting up in bed, appears to be in some pain and discomfort due to his low back pain, otherwise conversing normally. General Appearance: cooperative and comfortable HEENT normocephalic, head/scalp atraumatic, hearing grossly normal bilaterally and nasal mucous membranes and turbinates normal Eyes PERRL, EOMs intact bilaterally and conjunctivae normal Neck full ROM Chest inspection of chest normal Resp normal respiratory effort, normal air movement, no use of accessory muscles and clear to auscultation bilaterally Cardio regular rate, regular rhythm, no murmurs and peripheral pulses 2+ throughout GI normal to inspection, nondistended, normoactive bowel sounds, soft to palpation,non-tender and non-distended Back/Spine Back/Spine Narrative: Low back tenderness noted fairly diffusely on palpation of lumbar vertebra across low right side of back. No tenderness to palpation in right hip or rightknee. Very minor abrasion noted on left knee, no abnormalities on visual exam of right hip or knee. No visual abnormalities of low back. Did not attempt significant motion with the patient. Extremity normal to inspection and no pedal edema Skin no rashes or lesions noted Neuro moves all extremities Speech: speech normal Psych mental status grossly normal Mood & Affect: anxious Results Lab / Micro Data 12/09/23 21:37 12/09/23 21:37 Labs: Laboratory Results - last 24 hr 12/09/23 21:37: WBC 6.1, RBC 3.71 L, Hgb 10.9 L, Hct 33.0 L, MCV 88.9, MCH 29.4,MCHC 33.0, RDW Std Deviation 44.4 H, RDW Coeff of Frankie 13.5, Plt Count 278, MPV 8.2, Immature Gran % (Auto) 0.200, Neut % (Auto) 62.5, Lymph % (Auto) 22.6, [place]% (Auto) 9.7, Eos % (Auto) 4.3, Baso % (Auto) 0.7, Absolute Neuts (auto) 3.8, Absolute Lymphs (auto) 1.38, Nucleated RBC % 0, ESR 32 H, Sodium 138, Potassium 4.0, Chloride 105, Carbon Dioxide 26.0, Anion Gap 7, BUN 31 H, Creatinine 1.52 H, Estim Creat Clear Calc 46.69, Est GFR (MDRD) Af Amer 59 L, Est GFR (MDRD) Non-Af 48 L, BUN/Creatinine Ratio 20.4 H, Glucose 128 H, Calcium 9.4, C-React Prot Ext Range 26.80 H Imaging Radiology Impression Lumbar Spine CT 12/09/23 23:11 IMPRESSION: Advanced degenerative changes. Similar straightening of the usual lordotic curvature and levoscoliosis. Similar degree in size of multifocal bony erosions of the opposing vertebral body endplates at L4-5, likely due to indolent and actively treated osteomyelitis-discitis. Mild surrounding increased bony sclerosis around the erosions suggesting early healing-reactive bone formation. They are not yet healed. No new erosions or significant change in surrounding soft tissues. No enhancing paraspinous or intraspinous abscess. Electronically Signed: Rebecca Woodward MD at 23:58 EDT , Assessment & Plan Assessment/Plan (1) Recurrent low back pain: (2) History of discitis: (3) JUNI (acute kidney injury): (4) Debility: PLAN: Plan Patient is a 68-year-old male who presented [facility] ED on 12/10/2023 with recurrent low back pain. 1. Recurrent low back pain, recent history of L4-5 laminectomy complicated by discitis/osteomyelitis, debility ? Admit under inpatient status to [facility]. MRI lumbar spine with and without IVcontrast ordered. Was given one-time doses of antibiotics in the ED, will hold on further antibiotics for now until MRI results. Will await MRI result prior to orthopedic consult. Pain control with scheduled Tylenol, oxycodone as neededand IV Dilaudid as needed. PT/OT/case management consulted. 2. Mild JUNI ? Creatinine 1.52 on admit, recent baseline around 1.1-1.2. Suspect mild prerenal JUNI due to recent poor p.o. intake. IV fluids given in the ED. Follow-up a.m. BMP and urine output. Chronic medical conditions: ? History of CAD s/p CABG/hyperlipidemia: Continue home aspirin and statin. ? GERD: Continue home PPI as needed. ? Tobacco dependence: Encouraged cessation. Nicotine replacement therapy available as needed. ? Type 2 diabetes mellitus: Home regimen of metformin 500 mg twice daily. Bloodglucose 128 on admit. Recent A1c 6.4%. Sliding scale insulin with meals ordered. ? Neuropathy: Continue home gabapentin. ? Asthma: Stable on room air. Continue home inhalers as needed. DVT prophylaxis: Heparin subcu CODE STATUS: Full code, verified Expected disposition: TBD Total clinical time spent by myself addressing the patient's medical issues, reviewing all the data, and collaborating with patient's care team: 75 minutes. Charges/Coding Visit Charges Inpatient E&M: 64261 Init Hosp L3 12/10/23 0440 <Electronically signed by Giuliano Pacheco DO> Cosigner Signature (if applicable): CC: Dr. Giuliano Pacheco DO; Dr. Marshall Bear MD~ Signed [facility] Work Phone: [phone] Procedure [facility] 10-26-2023 Discharge summary Author Vin Wheatley [facility] October 26, 2023 3:21pm Note Date/Time October 26, 2023 3:[address] [place] [address] Medical Records Department [address] [place] [address] Discharge Summary 10/26/23 1513 MR#: [id number] Acct: [id number] Name: JARET BATES Rep #:[id number] : 1955 68 From: Vin Wheatley DO PCP: Dr. Marshall Bear MD Status:ADM IN Location: [place] [address] Providers Date of Admission: 10/21/23 Primary Care Physician: Dr. 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 EMERGENT Consult: No Notified: Yes Date Notified: 10/22/23 Time Notified: 13:51 Method of Notification: Text Consult: Orthopedics Routine Consulting Provider: Ventura Godoy Reason for Consult: suspected post op infection EMERGENT Consult: No Notified: Yes Date Notified: 10/22/23 Time Notified: 13:48 Method of Notification: Verbal 10/25/23 08:28 Consult: Interventional Radiology Routine Consulting Provider: Jaspreet Armstrong Reason for Consult: Bone Biopsy EMERGENT Consult: No MD Notified: Yes Date Notified: 10/25/23 Time Notified: 08:28 Method of Notification: per Reason For Visit: CVA Diagnosis Discharge Diagnosis (1) Discitis of lumbar region: Status: Acute Code(s): M46.46 - Discitis, unspecified, lumbar region Plan Acute toxic and metabolic encephalopathy * resolved 2/2 percocet and OM/diskitis. Patient currently is awake and alert and in severe back pain with stiffness therefore oxycodone resumed. Patient was evaluated by neurologist and does not think patient to clinical he had a stroke but probably postop infection/complication as mentioned below. * CT head and CTA head and neck does not show acute abnormality or LVO. Discontinue Plavix. Vertebral Osteomyelitis and diskitis * recurrent disc herniation status post repeat laminectomy L4-5 on the left with discectomy and decompression of L5 nerve root with with vertebral osteomyelitis and discitis of L4-L5: Patient had back surgery as mentioned above on 07/18/2023. * MRI 10/22: newly developed moderate marrow edema through the L4 and L5 judy tebral bodies. Also interval development of mild liquefaction wi the disc at L4/5. * 10/24: CT-guided lumbar biopsy by Dr Bradshaw. * ID recommending 6-weeks of vanc and CTX. PICC placed. Chronic conditions: * Chronic asthma: Per current list not on inhalers,PRN albuterol, HOB, IS parameters. * CAD: Status post CABG x 3, continue aspirin, changed to high-dose statin. * Diabetes mellitus type II with chronic neuropathy: Hold oral home regimen, hemoglobin A1c 6.4, glucose controlled. Accu-Chek ACH cover with Humalog sliding scale. Continue patient home chronic gabapentin regimen. * Hyperlipidemia: Changing to high-dose statin regimen. LDL 123. HDL normal. * GERD: Will continue patient home PPI and sucralfate regimen. * BPH: We will continue patient on Flomax regimen. * tobacco Abuse: Encouraged to tobacco cessation, inpatient consultation per RT, NR if desired. Patient usually uses 1 can every 3 to 4 days. * Restless leg syndrome: On a regimen, if necessary may add Requip DVT prophylaxis: Lovenox. Full code. Discharge home today with home care to assume responsibilities in AM. Pt will miss his evening dose. ID aware and is ok with missing this evening's dose. Medications at Discharge Home Medications aspirin 81 mg tablet,delayed release 81 mg PO DAILY HEART HEALTH 12/23/15 multivitamin 1 tab PO DAILY supplement 07/09/19 baclofen 10 mg tablet 10 mg PO TID PRN PRN Muscle Spasm 05/14/20 gabapentin 100 mg capsule 200 mg PO TID neuropathy 05/14/20 naproxen sodium 220 mg capsule (Aleve) 220 mg PO BID PRN Pain 02/04/22 albuterol sulfate 90 mcg/actuation aerosol inhaler 1 - 2 puff inhalation Q4H PRNPRN Wheezing #8.5 grams 04/21/22 handicap placard #1 ea 04/21/22 blood sugar diagnostic (FreeStyle Lite Strips) #100 ea 09/15/22 blood-glucose meter (FreeStyle Lite Meter kit) #1 ea 09/15/22 fluticasone propionate 50 mcg/actuation nasal spray,suspension 1 - 2 spray intranasal BID PRN allergies, congestion #16 grams 04/27/23 metformin 500 mg tablet 500 mg PO BID DIABETES #180 tabs 04/27/23 linaclotide 72 mcg capsule 72 mcg PO DAILY IBS #90 caps 06/27/23 acetaminophen 500 mg capsule 1,000 mg PO Q6H PRN pain 07/18/23 atorvastatin 40 mg tablet 40 mg PO QHS CHOLESTEROL #90 tabs 08/21/23 medical marijuana card PO unknown 08/21/23 omeprazole 40 mg capsule,delayed release 40 mg PO DAILY PRN Reflux #30 caps 08/21/23 trazodone 50 mg tablet 50 - 100 mg (1 - 2 x 50 mg) PO QHS sleep #90 tabs 08/21/23 sucralfate 1 gram tablet (Carafate) 1 g PO QACHS #30 tabs 09/27/23 metoclopramide HCl 10 mg tablet (Reglan) 10 mg PO Q8H PRN PRN nausea and vomiting #14 tabs 10/01/23 ondansetron 4 mg disintegrating tablet 4 mg PO Q6H PRN nausea and vomiting #20 tabs 10/03/23 oxycodone 5 mg tablet 7.5 mg PO TID PRN PRN pain 10/21/23 tamsulosin 0.4 mg capsule 0.4 mg PO QHS PRN urinary retention 10/21/23 ceftriaxone 2 gram intravenous solution 2 g IV Q24H 38 days 10/26/23 vancomycin 1,000 mg intravenous injection 2 g IV Q12H 38 days #76 ea 10/26/23 Hospital Course Operations None Procedures - (CT-guided lumbar biopsy. ) Summary of Care Provided Minutes Spent on Discharge: 32 Hospital Course: Patient present confused. Concerns for stroke but MRI showed chronic changes. Patient was found to be confused likely due to narcotics and as well as another medication clued baclofen and gabapentin and the fact that he had newly diagnosed osteomyelitis and discitis of the L4-L5 region. Patient did undergo abiopsy of the L4-L5 region results are pending. Patient will be discharged witha 6-week course of antibiotics with vancomycin and ceftriaxone. Patient was seen in consultation by spine surgery, neurology and infectious disease. Medical Records Data Medical Nutrition Assessment Dietitian: Malnutrition Criteria Met Start: 10/22/23 17:13 Freq: Status: Active Protocol: Document 10/22/23 17:14 RMA (Rec: 10/22/23 17:14 RMA [id number]) Nutrition Malnutrition Evidence of Malnutrition Exists Yes Malnutrition (severe): Chronic Evidenced By Suboptimal Energy Intake ( Severe),Weight Loss (Severe) Clinical Problem Chronic Disease or Condition Related Malnutrition Etiology severe protein-calorie malnutrition in the context of chronic disease related to inadequate oral/ennergy intake Signs/Symptoms as evidenced by ~6-7% unintentional weight loss x past 1 month and PO meeting less than 50% estimated nutrition needs x 1-2 months Status Active Problem Recommendation Dietitian Recommendations/Changes Will adjust diet to 2000 calorie/consistent carbohydrate; cardiac. Will add 120ml glucerna shake 4 times per day w/ medpass. Will add 240mL glucerna shake w/ breakfast tray. Adjust ONS as need to optimize PO and prevent further weight loss. Weight / BMI Weight Weight: 83.6 kg Body Mass Index (BMI) 26.4 ABG / Lab / Microbiology Data 10/26/23 06:27 10/26/23 06:27 Laboratory: Laboratory Results - last 24 hr 10/25/23 16:55: POC Glucose 100 10/26/23 06:02: POC Glucose 121 H 10/26/23 06:27: WBC 8.6, RBC 4.43 L, Hgb 12.4 L, Hct 36.6 L, MCV 82.6, MCH 28.0,MCHC 33.9, RDW Std Deviation 39.8, RDW Coeff of Frankie 13.3, Plt Count 248, MPV 7.9, Immature Gran % (Auto) 0.500, Neut % (Auto) 75.9 H, Lymph % (Auto) 13.5 L, [place] % (Auto) 8.8, Eos % (Auto) 0.8, Baso % (Auto) 0.5, Absolute Neuts (auto) 6.5, Absolute Lymphs (auto) 1.15, Nucleated RBC % 0, Sodium 131 L, Potassium 3.6, Chloride 99, Carbon Dioxide 23.0, Anion Gap 9, BUN 14, Creatinine 0.62 L, Estim Creat Clear Calc 88.72, Est GFR (MDRD) Af Amer 166, Est GFR (MDRD) Non-Af 137, BUN/Creatinine Ratio 22.7 H, Glucose 119 H, Calcium 8.7, Phosphorus 2.7 10/26/23 10:57: POC Glucose 180 H Microbiology: Microbiology 10/25/23 13:20 Fluid - Bone Marrow Gram Stain - Final 10/22/23 07:29 Blood Culture (Wb) - Right Hand Blood Culture - Preliminary No growth in 48 hours. 10/22/23 07:19 Blood Culture (Wb) - Anticubital Right Blood Culture - Preliminary No growth in 48 hours. 10/22/23 01:13 Mucosa - Nasopharyngeal Coronavirus COVID-19 PCR - Final 10/22/23 01:13 Mucosa - Nasopharyngeal Respiratory Panel (PCR) - Final Radiography Diagnostic Testing: Radiology Impression Biopsy CT 10/25/23 08:27 IMPRESSION: Successful CT guided left transpedicular approach aspiration of the L4-L5 disc space level, as described above. Conscious sedation protocol was followed. Electronically Signed: Jaspreet Armstrong MD at 14:09 EDT Reading Location ID and State: [facility] / [place] , Service support , Meaningful Use Info Meaningful Use Diagnoses (Choose all that apply): None applicable Discharge Plan Admission Admit Date/Time: 10/21/23 19:32 Primary Reason for Your Visit: Lumbar osteomyelitis and diskitis. Attending Provider: Vin Wheatley Primary Care Provider: Marshall Bear Consulting Providers: Sara Reaves; Tarik Wilkinson; Ventura Godoy; Jaspreet Armstrong; Ochoa Figueroa Discharge Orders/Prescriptions Prescriptions: New ceftriaxone 2 gram recon soln 2 g IV Q24H 38 Days Rx Instructions: stop date 12/03/23. Dx: spine osteomyelitis. Weekly bmp, cbc, ESR, and vanc trough; fax to [phone]. Routine picc care per protocol. vancomycin 1,000 mg recon soln 2 g IV Q12H 38 Days Qty: 76 0RF Rx Instructions: stop date 12/03/23. Dx: spine osteomyelitis. Weekly bmp, cbc, ESR, and vanc trough; fax to [phone]. Routine picc care per protocol. Continued multivitamin Tablet 1 tab PO DAILY naproxen sodium [Aleve] 220 mg capsule 220 mg PO BID PRN (Reason: Pain) medical marijuana card PO aspirin 81 MG tablet,delayed release (DR/EC) 81 mg PO DAILY baclofen 10 MG tablet 10 mg PO TID PRN PRN (Reason: Muscle Spasm) gabapentin 100 MG capsule 200 mg PO TID acetaminophen 500 mg capsule 1,000 mg PO Q6H PRN (Reason: pain) metoclopramide HCl [Reglan] 10 mg tablet 10 mg PO Q8H PRN PRN (Reason: nausea and vomiting) Qty: 14 0RF oxycodone 5 mg tablet 7.5 mg PO TID PRN PRN (Reason: pain) tamsulosin 0.4 mg capsule 0.4 mg PO QHS PRN (Reason: urinary retention) albuterol sulfate 90 mcg/actuation HFA aerosol inhaler 1 - 2 puff INHALATION Q4H PRN PRN (Reason: Wheezing) Qty: 8.5 3RF fluticasone propionate 50 mcg/actuation spray,suspension 1 - 2 spray intranasal BID PRN (Reason: allergies, congestion) Qty: 16 3RF Rx Instructions: administer into each nostril; 2 sprays in each nostril for the first week metformin 500 mg tablet 500 mg PO BID Qty: 180 3RF linaclotide 72 mcg capsule 72 mcg PO DAILY Qty: 90 3RF atorvastatin 40 mg tablet 40 mg PO QHS Qty: 90 3RF Hold Instructions: 10/01/21- Myalgia and sleep issues omeprazole 40 mg capsule,delayed release(DR/EC) 40 mg PO DAILY PRN (Reason: Reflux) Qty: 30 1RF trazodone 50 mg tablet 50 - 100 mg PO QHS Qty: 90 3RF sucralfate [Carafate] 1 gram tablet 1 g PO QACHS Qty: 30 0RF ondansetron 4 mg tablet,disintegrating 4 mg PO Q6H PRN (Reason: nausea and vomiting) Qty: 20 0RF No Action (DME) handicap placard See Rx Instructions .Route .MEDSUPPLY Qty: 1 0RF Rx Instructions: fatique , pain in right knee , oteoarathritis (DME) FreeStyle Lite Strips Strip See Rx Instructions .Route Qty: 100 3RF Rx Instructions: Twice daily (DME) blood-glucose meter [FreeStyle Lite Meter] Kit See Rx Instructions .Route Qty: 1 0RF Rx Instructions: Test twice daily Referrals / Follow Up: Marshall Bear MD [Primary Care Provider] - Within 2 Weeks Ventura Godoy DO [Med Staff - Active Staff] - Within 2 Weeks Tarik Wilkinson MD [Med Staff - Active Staff] - Within 2 Weeks Disposition Disposition (needs filled in before D/C Order can be placed): Home Health Service Charges/Coding Visit Charges Inpatient E&M: 68406 Disch Hosp >30min 10/26/23 1521 <Electronically signed by Vin Wheatley DO> Cosigner Signature (if applicable): CC: Dr. Vin Wheatley DO; Dr. Marshall Bear MD~ Signed [facility] Work Phone: 1(263) 707-289303-14-2024 Progress note Author Vin pierre [facility] October 26, 2023 3:13pm Note Date/Time October 26, 2023 9:2 3am [facility] Medical Records Department [address] [place] [address] Progress Note - Hospitalist 10/26/23913 MR#: [id number] Acct: [id number] Name: JARET BATES Rep #:[id number] : 1955 68 From: Vin Wheatley DO PCP: Dr. Marshall Bear MD Status:ADM IN Location: [facility] [id number] Reason for Visit Reason for Visit: Diagnoses Cerebral infarction, unspecified (10/21/23) Discitis, unspecified, lumbar region (10/21/23) Altered mental status, unspecified (10/21/23) Other specified postprocedural states (10/21/23) Subjective Subjective Still with back pain. Anxious to go home. Objective Data Objective Data Vital Signs: Vital Signs Temp Pulse Resp BP Pulse Ox O2 Del Method 36.4 C L 95 18 107/82 H 93 Room Air 10/26/23 08:30 10/26/23 08:30 10/26/23 08:30 10/26/23 08:30 10/26/23 08:35 10/26/23 08:35 Oxygen Delivery Method Room Air Weight: 83.6 kg Body Mass Index (BMI) 26.4 Intake & Output: Intake and Output for Last 24 Hours 10/24/23 10/25/23 10/26/23 23:59 23:59 23:59 Intake Total 1785 / 1785 1775 / 2655 1120 / 1120 Output Total 2500 / 2500 1200 / 1200 Balance -715 / -715 1775 / 1855 -80 / -80 Medical Nutrition Assessment Dietitian: Malnutrition Criteria Met Start: 10/22/23 17:13 Freq: Status: Active Protocol: Document 10/22/23 17:14 RMA (Rec: 10/22/23 17:14 RMA [id number]) Nutrition Malnutrition Evidence of Malnutrition Exists Yes Malnutrition (severe): Chronic Evidenced By Suboptimal Energy Intake ( Severe),Weight Loss (Severe) Clinical Problem Chronic Disease or Condition Related Malnutrition Etiology severe protein-calorie malnutrition in the context of chronic disease related to inadequate oral/ennergy intake Signs/Symptoms as evidenced by ~6-7% unintentional weight loss x past 1 month and PO meeting less than 50% estimated nutrition needs x 1-2 months Status Active Problem Recommendation Dietitian Recommendations/Changes Will adjust diet to 2000 calorie/consistent carbohydrate; cardiac. Will add 120ml glucerna shake 4 times per day w/ medpass. Will add 240mL glucerna shake w/ breakfast tray. Adjust ONS as need to optimize PO and prevent further weight loss. Lab / Micro Data 10/26/23 06:27 10/26/23 06:27 Labs: Laboratory Results - last 24 hr 10/24/23 16:48: POC Glucose 132 H 10/25/23 07:30: PT 13.6, INR 1.0, Hemoglobin A1c 6.2 H 10/25/23 16:55: POC Glucose 100 10/26/23 06:02: POC Glucose 121 H 10/26/23 06:27: WBC 8.6, RBC 4.43 L, Hgb 12.4 L, Hct 36.6 L, MCV 82.6, MCH 28.0,MCHC 33.9, RDW Std Deviation 39.8, RDW Coeff of Frankie 13.3, Plt Count 248, MPV 7.9, Immature Gran % (Auto) 0.500, Neut % (Auto) 75.9 H, Lymph % (Auto) 13.5 L, [place] % (Auto) 8.8, Eos % (Auto) 0.8, Baso % (Auto) 0.5, Absolute Neuts (auto) 6.5, Absolute Lymphs (auto) 1.15, Nucleated RBC % 0, Sodium 131 L, Potassium 3.6, Chloride 99, Carbon Dioxide 23.0, Anion Gap 9, BUN 14, Creatinine 0.62 L, Estim Creat Clear Calc 88.72, Est GFR (MDRD) Af Amer 166, Est GFR (MDRD) Non-Af 137, BUN/Creatinine Ratio 22.7 H, Glucose 119 H, Calcium 8.7, Phosphorus 2.7 Micro: Microbiology 10/22/23 07:29 Blood Culture (Wb) - Right Hand Blood Culture - Preliminary No growth in 48 hours. 10/22/23 07:19 Blood Culture (Wb) - Anticubital Right Blood Culture - Preliminary No growth in 48 hours. 10/22/23 01:13 Mucosa - Nasopharyngeal Coronavirus COVID-19 PCR - Final 10/22/23 01:13 Mucosa - Nasopharyngeal Respiratory Panel (PCR) - Final Radiography Diagnostic Testing: Radiology Impression Biopsy CT 10/25/23 08:27 IMPRESSION: Successful CT guided left transpedicular approach aspiration of the L4-L5 disc space level, as described above. Conscious sedation protocol was followed. Electronically Signed: Jaspreet Armstrong MD at 14:09 EDT , Physical Exam Const alert and no apparent distress Constitutional Narrative: up in bed. HEENT head/scalp atraumatic Neuro Sensorium / Orientation: awake and alert Assessment & Plan Assessment/Plan (1) Discitis of lumbar region: PLAN: Plan Acute toxic and metabolic encephalopathy * resolved 2/2 percocet and OM/diskitis. Patient currently is awake and alert and in severe back pain with stiffness therefore oxycodone resumed. Patient was evaluated by neurologist and does not think patient to clinical he had a stroke but probably postop infection/complication as mentioned below. * CT head and CTA head and neck does not show acute abnormality or LVO. Discontinue Plavix. Vertebral Osteomyelitis and diskitis * recurrent disc herniation status post repeat laminectomy L4-5 on the left with discectomy and decompression of L5 nerve root with with vertebral osteomyelitis and discitis of L4-L5: Patient had back surgery as mentioned above on 07/18/2023. * MRI 10/22: newly developed moderate marrow edema through the L4 and L5 vertebral bodies. Also interval development of mild liquefaction wi the disc at L4/5. * 10/24: CT-guided lumbar biopsy by Dr Bradshaw. * ID recommending 6-weeks of vanc and CTX. PICC placed. Chronic conditions: * Chronic asthma: Per current list not on inhalers,PRN albuterol, HOB, IS parameters. * CAD: Status post CABG x 3, continue aspirin, changed to high-dose statin. * Diabetes mellitus type II with chronic neuropathy: Hold oral home regimen, hemoglobin A1c 6.4, glucose controlled. Accu-Chek ACH cover with Humalog sliding scale. Continue patient home chronic gabapentin regimen. * Hyperlipidemia: Changing to high-dose statin regimen. LDL 123. HDL normal. * GERD: Will continue patient home PPI and sucralfate regimen. * BPH: We will continue patient on Flomax regimen. * tobacco Abuse: Encouraged to tobacco cessation, inpatient consultation per RT, NR if desired. Patient usually uses 1 can every 3 to 4 days. * Restless leg syndrome: On a regimen, if necessary may add Requip DVT prophylaxis: Lovenox. Full code. Discharge home today with home care to assume responsibilities in AM. Pt will miss his evening dose. ID aware and is ok with missing this evening's dose. 10/26/23 2763 <Electronically signed by Vin Wheatley DO> Cosigner Signature (if applicable): CC: ~ Signed [facility] Work Phone: 1(157) 165-579003-14-2024 Progress note Author Ventura Godoy [facility] October 26, 2023 1:02pm Note Date/Time October 26, 2023 1:0 2pm [facility] Medical Records Department [address] [place] [address] Progress Note - Orthopedic 10/26/23 1300 MR#: [id number] Acct: [id number] Name: JARET BATES Rep #:[id number] : 1955 68 From: Ventura Fournier PCP: Dr. Marshall Bear MD Status:ADM IN Location: [facility] [id number] Subjective Subjective Mr. Bates is seen on rounds. Today he was in the company of his . We discussed the findings so far. He is due to get his PICC line today. Should I guess that he will probably be going home by tomorrow if Dr. Wilkinson can get everything set up for his home. So far nothing from the pathology after Dr. Bradshaw's biopsy done yesterday. I suspect it will be at least tomorrow before we hear anything. The Gram stain did not show anything. I told Mr. Bates and hiswife that I would like to visit with him in my office in about 3 weeks. Will probably be on the antibiotics at least a 6 weeks total or perhaps even 8 weeks. Progress so far is good. I will see him in the office. Objective Data Objective Data Vital Signs: Vital Signs Temp Pulse Resp BP Pulse Ox O2 Del Method 97.6 F L 95 18 107/82 H 93 Room Air 10/26/23 08:30 10/26/23 08:30 10/26/23 08:30 10/26/23 08:30 10/26/23 08:35 10/26/23 08:35 Oxygen Delivery Method Room Air Weight: 184 lb 4.903 oz Body Mass Index (BMI) 26.4 Intake & Output: Intake and Output for Last 24 Hours 10/24/23 10/25/23 10/26/23 23:59 23:59 23:59 Intake Total 1785 / 1785 1775 / 2655 2070 / 2070 Output Total 2500 / 2500 1650 / 1650 Balance -715 / -715 1775 / 1855 420 / 420 Medical Nutrition Assessment Dietitian: Malnutrition Criteria Met Start: 10/22/23 17:13 Freq: Status: Active Protocol: Document 10/22/23 17:14 RMA (Rec: 10/22/23 17:14 RMA [id number]) Nutrition Malnutrition Evidence of Malnutrition Exists Yes Malnutrition (severe): Chronic Evidenced By Suboptimal Energy Intake ( Severe),Weight Loss (Severe) Clinical Problem Chronic Disease or Condition Related Malnutrition Etiology severe protein-calorie malnutrition in the context of chronic disease related to inadequate oral/ennergy intake Signs/Symptoms as evidenced by ~6-7% unintentional weight loss x past 1 month and PO meeting less than 50% estimated nutrition needs x 1-2 months Status Active Problem Recommendation Dietitian Recommendations/Changes Will adjust diet to 2000 calorie/consistent carbohydrate; cardiac. Will add 120ml glucerna shake 4 times per day w/ medpass. Will add 240mL glucerna shake w/ breakfast tray. Adjust ONS as need to optimize PO and prevent further weight loss. Lab / Micro Data 10/26/23 06:27 10/26/23 06:27 Labs: Laboratory Results - last 24 hr 10/25/23 16:55: POC Glucose 100 10/26/23 06:02: POC Glucose 121 H 10/26/23 06:27: WBC 8.6, RBC 4.43 L, Hgb 12.4 L, Hct 36.6 L, MCV 82.6, MCH 28.0,MCHC 33.9, RDW Std Deviation 39.8, RDW Coeff of Frankie 13.3, Plt Count 248, MPV 7.9, Immature Gran % (Auto) 0.500, Neut % (Auto) 75.9 H, Lymph % (Auto) 13.5 L, [place] % (Auto) 8.8, Eos % (Auto) 0.8, Baso % (Auto) 0.5, Absolute Neuts (auto) 6.5, Absolute Lymphs (auto) 1.15, Nucleated RBC % 0, Sodium 131 L, Potassium 3.6, Chloride 99, Carbon Dioxide 23.0, Anion Gap 9, BUN 14, Creatinine 0.62 L, Estim Creat Clear Calc 88.72, Est GFR (MDRD) Af Amer 166, Est GFR (MDRD) Non-Af 137, BUN/Creatinine Ratio 22.7 H, Glucose 119 H, Calcium 8.7, Phosphorus 2.7 10/26/23 10:57: POC Glucose 180 H Micro: Microbiology 10/25/23 13:20 Fluid - Bone Marrow Gram Stain - Final 10/22/23 07:29 Blood Culture (Wb) - Right Hand Blood Culture - Preliminary No growth in 48 hours. 10/22/23 07:19 Blood Culture (Wb) - Anticubital Right Blood Culture - Preliminary No growth in 48 hours. 10/22/23 01:13 Mucosa - Nasopharyngeal Coronavirus COVID-19 PCR - Final 10/22/23 01:13 Mucosa - Nasopharyngeal Respiratory Panel (PCR) - Final Radiography Diagnostic Testing: Radiology Impression Biopsy CT 10/25/23 08:27 IMPRESSION: Successful CT guided left transpedicular approach aspiration of the L4-L5 disc space level, as described above. Conscious sedation protocol was followed. Electronically Signed: Jaspreet Armstrong MD at 14:09 EDT , 10/26/23 1302 <Electronically signed by Ventura Godoy DO> Cosigner Signature (if applicable): CC: ~ Signed [facility] Work Phone: 1(542) 347-856903-14-2024 Progress note Author Tarik Wilkinson [facility] October 26, 2023 10:34am Note Date/Time October 26, 2023 10: 34am [facility] Medical Records Department [address] [place] [address] Progress Note - Infect Disease 10/26/23 1033 MR#: [id number] Acct: [id number] Name: JARET BATES Rep #:[id number] : 1955 68 From: Tarik cao MD PCP: Dr. Marshall Bear MD Status:ADM IN Location: [place] [address] Physical Exam Narrative Feeling much better, no fever, no n/v/d. Const alert and no apparent distress Resp normal air movement and clear to auscultation bilaterally Cardio regular rate and regular rhythm GI soft to palpation, non-tender and non-distended Skin no rashes or lesions noted ID ID: Route of nutrition/ use of supplements: [] Nutritional Intake: [] IV Site: [] Gan Catheter: [] Assessment & Plan Assessment/Plan (1) Altered mental status: (2) S/P laminectomy: (3) Discitis of lumbar region: PLAN: Had lumbar laminectomy and discectomy L4-5 on 07/18/[address] Godoy here. Since then, progressive pain, new fever and confusion. Bcx ngtd. Low suspicion for meningitis at this point. MRI shows suspected discitis/osteo. At risk for nosocomial organisms. No epidural abscess seen. 10/25/23 had aspiration of disc/bone with orosco culture sent. No organism seen on gram stain. Cont empiric vanc/ceftriaxone. Feeling better. Will order picc, 6 weeks iv vanc/ceftriaxone with stop date 12/03/23 with weekly labs and ID followup in 2 weeks. Wrote rx, d/w director of casework department Will follow 10/26/23 1034 <Electronically signed by Tarik Wilkinson MD> Cosigner Signature (if applicable): CC: ~ Signed [facility] Work Phone: 1(495) 994-751903-13-2024 Progress note Author Ochoa Figueroa [facility] October 25, 2023 4:43pm Note Date/Time October 25, 2023 4:4 2pm [facility] Medical Records Department [address] [place] [address] Progress Note - Hospitalist 10/25/23 1633 MR#: [id number] Acct: [id number] Name: JARET BATES Rep #:[id number] : 1955 68 From: Ochoa Mcfarlane PCP: Dr. Marshall Bear MD Status:ADM IN Location: [place] [address] Reason for Visit Reason for Visit: Diagnoses Cerebral infarction, unspecified (10/21/23) Discitis, unspecified, lumbar region (10/21/23) Altered mental status, unspecified (10/21/23) Other specified postprocedural states (10/21/23) Objective Data Objective Data Vital Signs: Vital Signs Temp Pulse Resp BP Pulse Ox O2 Del Method 97.9 F 88 16 150/82 H 93 Room Air 10/25/23 14:30 10/25/23 14:30 10/25/23 14:30 10/25/23 14:30 10/25/23 14:30 10/25/23 14:30 Oxygen Delivery Method Room Air Weight: 184 lb 11.958 oz Body Mass Index (BMI) 26.5 Intake & Output: Intake and Output for Last 24 Hours 10/23/23 10/24/23 10/25/23 23:59 23:59 23:59 Intake Total 4305.00 / 4545.00 1785 / 1785 1375 / 1375 Output Total 550 / 1250 2500 / 2500 Balance 3755.00 / 3295.00 -715 / -715 1375 / 1375 Medical Nutrition Assessment Dietitian: Malnutrition Criteria Met Start: 10/22/23 17:13 Freq: Status: Active Protocol: Document 10/22/23 17:14 RMA (Rec: 10/22/23 17:14 RMA [id number]) Nutrition Malnutrition Evidence of Malnutrition Exists Yes Malnutrition (severe): Chronic Evidenced By Suboptimal Energy Intake ( Severe),Weight Loss (Severe) Clinical Problem Chronic Disease or Condition Related Malnutrition Etiology severe protein-calorie malnutrition in the context of chronic disease related to inadequate oral/ennergy intake Signs/Symptoms as evidenced by ~6-7% unintentional weight loss x past 1 month and PO meeting less than 50% estimated nutrition needs x 1-2 months Status Active Problem Recommendation Dietitian Recommendations/Changes Will adjust diet to 2000 calorie/consistent carbohydrate; cardiac. Will add 120ml glucerna shake 4 times per day w/ medpass. Will add 240mL glucerna shake w/ breakfast tray. Adjust ONS as need to optimize PO and prevent further weight loss. Lab / Micro Data 10/25/23 07:30 10/25/23 07:30 Labs: Laboratory Results - last 24 hr 10/24/23 16:48: POC Glucose 132 H 10/25/23 07:30: WBC 8.9, RBC 4.30 L, Hgb 12.2 L, Hct 35.0 L, MCV 81.4, MCH 28.4,MCHC 34.9, RDW Std Deviation 38.3, RDW Coeff of Frankie 13.0, Plt Count 242, MPV 7.7, Immature Gran % (Auto) 0.400, Neut % (Auto) 73.8 H, Lymph % (Auto) 15.5 L, [place] % (Auto) 9.8, Eos % (Auto) 0.2, Baso % (Auto) 0.3, Absolute Neuts (auto) 6.6, Absolute Lymphs (auto) 1.38, Nucleated RBC % 0, PT 13.6, INR 1.0, Sodium 126 L, Potassium 3.1 L, Chloride 92 L, Carbon Dioxide 25.0, Anion Gap 9, BUN 11,Creatinine 0.64 L, Estim Creat Clear Calc 88.72, Est GFR (MDRD) Af Amer 160, EstGFR (MDRD) Non-Af 132, BUN/Creatinine Ratio 17.3, Glucose 109 H, Hemoglobin A1c 6.2 H, Calcium 8.6, Vancomycin Trough 13.6 Micro: Microbiology 10/22/23 07:29 Blood Culture (Wb) - Right Hand Blood Culture - Preliminary No growth in 48 hours. 10/22/23 07:19 Blood Culture (Wb) - Anticubital Right Blood Culture - Preliminary No growth in 48 hours. 10/22/23 01:13 Mucosa - Nasopharyngeal Coronavirus COVID-19 PCR - Final 10/22/23 01:13 Mucosa - Nasopharyngeal Respiratory Panel (PCR) - Final Radiography Diagnostic Testing: Radiology Impression Biopsy CT 10/25/23 08:27 IMPRESSION: Successful CT guided left transpedicular approach aspiration of the L4-L5 disc space level, as described above. Conscious sedation protocol was followed. Electronically Signed: Jaspreet Armstrong MD at 14:09 EDT , Physical Exam Narrative Seen and examined. Patient also gets intermittently confused last night and agitated. In the morning he is coherent. Awake and gives history. Back pain better. In the morning, patient sitting on the bed. Plan for CT-guided lumbar biopsy. Physical exam General: Awake, intermittently confused and hallucination. Disoriented to time and place. HEENT: Atraumatic, PERRLA, EOMI, Normocephalic Oral: No Gingival or Mucosal Lesions/ Ulcerations Neck: Supple, No JVD, Negative Carotid Bruits Chest wall/Lungs: Air entry diminished in bilateral lung bases. No crepitation/rhonchi Cardiovascular: Regular rate, Regular Rhythm, Normal S1, Normal S2, No M/G/R Abdomen: Bowel Sounds Present, Soft, Non Tender, Non-Distended : No dysuria. No renal angle tenderness. No suprapubic tenderness. Extremities: No edema, Capillary Refill Less than 3 Seconds Skin: No rashes, No breakdown Musculoskeletal: No Tenderness to Palpation of Joints or Extremities. Spine: Postop surgical scar well-healed. Mild tenderness present all around lumbar and paraspinal area. Muscle stiffness is better. Can lift leg strength 4/5 at knee and hip joints. Neurological: Cranial nerves II-XII grossly intact, DTR 2+/4. No neck rigidity.Brudzinski sign positive of both legs on extension of calf muscle. Psych/Mental Status: Flat affect. Quiet but at times restless and agitated. Assessment & Plan Assessment/Plan (1) Acute CVA (cerebrovascular accident): PLAN: Plan The patient is a 68 y/o M is being admitted for intermittent fever after surgeryalong with confusion lethargy/altered mental status, severe back pain and expressive aphasia. Expressive aphasiadue to lethargy. #1. Acute encephalopathy/altered mental status/expressive aphasia probably related to pain medication: Patient was found very lethargic and was on oxycodone 7.5 mg 3 times daily as needed. Patient currently is awake and alert and in severe back pain with stiffness therefore oxycodone resumed. Patient wasevaluated by neurologist and does not think patient to clinical he had a stroke but probably postop infection/complication as mentioned below. CT head and CTA head and neck does not show acute abnormality or LVO. Discontinue Plavix. 10/22: Patient did not had any fever. Tmax 99.3 Fahrenheit. Acute encephalopathy resolved. 10/23: Patient was fine yesterday but today restless and aggressive and agitated. Haldol 2 mg and 12.5 mg Phenergan ordered. Oxycodone dose was decreased to 2.5mg for moderate pain and 5 mg for severe pain respectively. 10/24:Patient on oxycodone 2.5 to 5 mg low-dose for moderate to severe pain respectively. Patient was given hydroxyzine 100 mg IM for agitation last night. Started on risperidone 0.5 mg twice daily with holding parameters for lethargy/sedation. 2. Acute on chronic back pain with radiculopathy due to recurrent disc herniation status post repeat laminectomy L4-5 on the left with discectomy and decompression of L5 nerve root with with vertebral osteomyelitis and discitis ofL4-L5: Patient had back surgery as mentioned above on 07/18/2023. As per heis having on and off fever and chills after surgery. Initially he had enuresis/bedwetting and then urinary incontinence since then. Patient has very restricted mobility due to back stiffness and pain and on oxycodone 7.5 mg 3 times daily as needed. Patient put back on oxycodone 7.5 mg 3 times daily with holding parameters. MRIlumbar spine with and without contrast and MRI brain with and without contrast on. But lumbar spine takes the priority. Will hold for spinal tap as patient might have lumbar abscess or infection. Discussed with the [facility] neurologist. Patient on IV vancomycin, ampicillin and ceftriaxone, meningitis regimen. Orthospine and ID are consulted. I talked to Dr. Godoy, spine surgeon. PT andOT ordered. TSH normal. 10/22: Patient still has severe back pain even on oxycodone 7.5 mg 3 times daily and Toradol 15 mg every 6 hourly as needed. Patient not move bowel for last 2 to 3 days therefore on Senna-S 2 tablet twice daily, MiraLAX and Dulcolax oral ordered. Oxycodone increased to 10 mg every 6 hourly as needed. MRI lumbar spine and brain with and without contrast were ordered but patient could only have noncontrast study because of severe pain. Discussed with the spine surgeonand does not think any paraspinal abscess but will wait for official report. Lumbar spine reported newly developed moderate marrow edema throughout L4-L5 vertebral bodies with mild liquefaction within disc of L4-L5 and mild cortical erosions of the endplates finding consistent with vertebral osteomyelitis and discitis. Disc spaces also narrowed. No demonstrated paraspinal abscess or anymore swelling. No visualized epidural fluid collection. Patient on IV antibiotics. ID is consulted. MRI brain shows involutional chronic changes butminges could not be evaluated because of no intravenous contrast was administered for reasons mentioned above. 10/23: CT lumbar spine was done which similarly shows osteomyelitis and discitis. ID requested CT-guided biopsy. 10/24: CT-guided lumbar biopsy by Dr Bradshaw. 3. Hypotonic isovolemic hyponatremia: Even though patient on IV fluid normal saline, serum sodium did not increase it remains 131. Will discontinue IV fluid. Patient might have SIADH after neurosurgery 10/22: Serum sodium is similar for last 3 days. 11/10: Sodium 126. 4. Hypokalemia: Admission K+ 3.2, magnesium level normal. Potassium replaced 3/9: Hypokalemia corrected. 10/23: Mild hypokalemia potassium corrected. B12 also low 177 therefore vitamin B12 ordered 10/24 potassium 3.1. On IV KCl replacement 5. Chronic asthma: Per current list not on inhalers,PRN albuterol, HOB, IS parameters. 6. CAD: Status post CABG x 3, continue aspirin, changed to high-dose statin. #7. Diabetes mellitus type II with chronic neuropathy: Hold oral home regimen, hemoglobin A1c 6.4, glucose controlled. Accu-Chek ACH cover with Humalog sliding scale. Continue patient home chronic gabapentin regimen. #8. Hyperlipidemia: Changing to high-dose statin regimen. LDL 123. HDL normal. #9. GERD: Will continue patient home PPI and sucralfate regimen. #10. BPH: We will continue patient on Flomax regimen. #11. Tobacco Abuse: Encouraged to tobacco cessation, inpatient consultation perRT, NR if desired. Patient usually uses 1 can every 3 to 4 days. #12. Restless leg syndrome: On a regimen, if necessary may add Requip #13. DVT prophylaxis: Lovenox. #14. CODE status: Patient HCPOA is his was present and living will is currently in place. Discussed CODE status at length including difference betweenFULL code, DNR-CCA and DNR-CC status. Following discussions about the differences in these status, requested Full Code status. Total time of the visit including total time spent in counseling or coordinationof care, (more than 50% of the total time, spent in obtaining medical information from nurses and other ancillary care providers,explaining to the patient about labs, imaging, diagnosis and management of active complex medical conditions), complete history taking from patient's , discussion with [facility] neurologist and orthospine surgeon Dr. Walt Whitehead, review of labs and imagingis 40 minutes. Clinical Impression(s) from Imaging Studies Brain CT 10/21/23 17:19 IMPRESSION: Chronic age related changes and atrophy. No acute abnormality or significant change. Electronically Signed: Toribio Giraldo MD at 17:34 EST , ADDENDUM: 10/21/23 8788 IMPRESSION: Chronic age related changes and atrophy. No acute abnormality or significant change. N.B. : The above Results were Read Back by Toribio Giraldo MD to Kayli Granados DO, and understanding confirmed on 10/21/2023 17:39:16 (ET). Electronically Signed: Toribio Giraldo MD at 17:34 EST , Head/Neck CTA 10/21/23 17:19 IMPRESSION: No acute abnormality. No large vessel occlusions. 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 Electronically Signed: Toribio Giraldo MD at 17:49 EST , ADDENDUM: 10/21/23 1758 IMPRESSION: No acute abnormality. No large vessel occlusions. 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 N.B. : The above Results were Read Back by Toribio Giraldo MD to Kayli Granados DO, and understanding confirmed on 10/21/2023 17:51:20 (ET). Electronically Signed: Toribio Giraldo MD at 17:49 EST , Chest X-Ray 10/21/23 18:05 IMPRESSION: No definite acute or significant abnormality seen. Electronically Signed: Toribio Giraldo MD at 19:00 EST , Charges/Coding Visit Charges Inpatient E&M: 03822 Subs Hosp L2 10/25/23 1643 <Electronically signed by Ochoa Figueroa MD> Cosigner Signature (if applicable): CC: ~ Signed [facility] Work Phone: 1(202) 241-559403-13-2024 Procedure [facility] 10-25-2023 Consult note Author Tarik Wilkinson [facility] October 25, 2023 12:53pm Note Date/Time October 25, 2023 8:5 9am [facility] Medical Records Department [address] [place] [address] Pharmacokinetic/Renal -Consult 10/25/23 0854 MR#: [id number] Acct: [id number] Name: JARET BATES Rep #:[id number] : 1955 68 From: Dave rincon PCP: Dr. Marshall Bear MD Status:ADM IN Y Location: [place] [address] Consult Antibiotic Management Pharmacy has been consulted to manage selected antibiotic: Vancomycin Type of Intervention Type of Consult: Follow-up Prior Doses of Antibiotics Prior Doses of Antibiotics Received/Current Regimen: current dose is vanc 1750mg IV q12h Labs Labs: Sodium 126 mmol/L (136-145) L 10/25/23 07:30 Potassium 3.1 mmol/L (3.5-5.1) L 10/25/23 07:30 Chloride 92 mmol/L (98-107) L 10/25/23 07:30 Carbon Dioxide 25.0 mmol/L (21.0-32.0) 10/25/23 07:30 Anion Gap 9 (5-15) 10/25/23 07:30 BUN 11 mg/dL (7-18) 10/25/23 07:30 Creatinine 0.64 mg/dL (0.70-1.30) L 10/25/23 07:30 Est GFR (MDRD) Af Amer 160 mL/min (>60) 10/25/23 07:30 Est GFR (MDRD) Non-Af 132 mL/min (>60) 10/25/23 07:30 BUN/Creatinine Ratio 17.3 RATIO (10-20) 10/25/23 07:30 Glucose 109 mg/dL (74-106) H 10/25/23 07:30 Vancomycin Trough 13.6 ug/mL (5.0-15.0) 10/25/23 07:30 Microbiology Microbiology: Microbiology 10/22/23 07:29 Blood Culture (Wb) - Right Hand Blood Culture - Preliminary No growth in 48 hours. 10/22/23 07:19 Blood Culture (Wb) - Anticubital Right Blood Culture - Preliminary No growth in 48 hours. 10/22/23 01:13 Mucosa - Nasopharyngeal Coronavirus COVID-19 PCR - Final 10/22/23 01:13 Mucosa - Nasopharyngeal Respiratory Panel (PCR) - Final Dosing Weight Weight used for dosin.8 kg Estimated Creatinine Clearance Estimated Creatinine Clearance: 89 ml/min Goal Trough Goal Trough: 15-20 mcg/mL Pharmacy Plan for Drug Dosing Pharmacy Plan for Drug Dosing: The vanc trough drawn at 07:30 today was 13.6. The previous dose was given lateso the trough was drawn at only 9 hours after that dose. It would've been even lower if drawn closer to the 12-hr vipul. Since below goal, will increase dose to 2000mg IV q12h. If this new dose does not take the trough up into goal range, will have to change to q8h dosing. Will order a trough to be drawn before the 4th dose tomorrow night. Pharmacy Service will continue to monitor and adjust dosing as required. Follow-Up Labs Follow-Up Labs: Trough: Vancomycin Date/Time Labs Ordered Labs to be done on [date and time ordered]: 10/26/23 20:30 10/25/23 0859 <Electronically signed by Dave velazco> Date _ Dave Fabian 10/25/23 1253 <Electronically signed by Tarik alegria MD> Cosigner Signature (if applicable): Date Tarik Wilkinson MD CC: ~ Signed [facility] Work Phone: 1(152) 108-261703-13-2024 Consult note Author Bjorn Bradshaw [facility] October 25, 2023 12:44pm Note Date/Time October 25, 2023 10: 37am [facility] Medical Records Department [facility] [place] [address] Consultation - Orthopedics 10/25/23 1028 MR#: [id number] Acct: [id number] Name: JARET BATES Rep #:[id number] : 1955 68 From: Bjorn Bradshaw MD PCP: Dr. Marshall Bear MD Status:ADM IN Location: [facility] [id number]- [id number] HPI Consult Data Date of Consult: 10/25/23 HPI Narrative HPI Narrative: I was requested to review the patient's imaging and discuss possibility of performing a CT-guided biopsy for his L4-5 discitis. From a review of his records and discussion with Dr. Godoy, patient underwent L4-5 revision laminectomy discectomy in July which was complicated with a CSF leak that was sealed intraoperatively. He improved after the surgery but had persistent pain that required evaluation by an MRI. The MRI was denied by insurance in August. He was then admitted and evaluated with an MRI and CT over the last few days which revealed an L4-5 discitis. While patient has been started on empiric antibiotic, ID recommends a CT-guided biopsy for tissue diagnosis as well as culture sensitivity to allow more targeted antibiotic treatment. Per discussion with Dr. Godoy, it was felt that IR may not be able to perform CT-guided biopsy and Dr. Godoy requested me to perform the CT-guidedbiopsy and assistance with IR physician and Dr. Godoy himself. I have requested patient to be n.p.o. this morning and discussed with CT scan regarding requirement of sedation and equipment for the procedure. We will schedule this procedure at noon today. Saw patient today. Severe low back pain, difficulty ambulating. [facility] Medical History Agent orange exposure Alcohol use Ambulates with cane Arthritis Arthropathy of cervical facet joint Asthma Atherosclerotic heart disease of [place] coronary artery without angina pectoris Back pain Bilirubinuria Cancer Cardiology follow-up encounter Cervical spondylosis Chondromalacia of both patellae Chondromalacia, left knee Chondromalacia, right knee Contact with or exposure to other viral diseases COVID-19 virus detected (11/19/20) Degeneration of cervical disc without myelopathy Degeneration of intervertebral disc of lumbosacral region Diabetes Fusion of spine, cervical region High cholesterol (~08/21/23) History of echocardiogram History of IBS History of pain when walking History of steroid therapy History of stress test Hyperlipemia Injury of head and neck Left knee DJD Nonrheumatic aortic (valve) stenosis with insufficiency Obesity Opioid dependence Prostate disease Radiculopathy of lumbosacral region Restless legs Right knee DJD Shortness of breath on exertion Smokeless tobacco use Spinal stenosis of lumbosacral region Spondylosis of lumbosacral region without myelopathy or radiculopathy Syncope Tear of medial meniscus of right knee Type 2 diabetes mellitus Wears hearing aid Home Medications aspirin 81 mg tablet,delayed release 81 mg PO DAILY HEART HEALTH 12/23/15 [History Last Taken 07/11/23] multivitamin 1 tab PO DAILY supplement 07/09/19 [History Last Taken 07/17/23 06:00] baclofen 10 mg tablet 10 mg PO TID PRN PRN Muscle Spasm 05/14/20 [History Last Taken 07/17/23 18:00] gabapentin 100 mg capsule 200 mg PO TID neuropathy 05/14/20 [History Last Taken 07/17/23 18:00] naproxen sodium 220 mg capsule (Aleve) 220 mg PO BID PRN Pain 02/04/22 [History Last Taken 07/17/23 18:00] albuterol sulfate 90 mcg/actuation aerosol inhaler 1 - 2 puff inhalation Q4H PRNPRN Wheezing #8.5 grams 04/21/22 [Rx Last Taken Unknown] handicap placard #1 ea 04/21/22 [Rx Last Taken Unknown] blood sugar diagnostic (FreeStyle Lite Strips) #100 ea 09/15/22 [Rx Last Taken Unknown] blood-glucose meter (FreeStyle Lite Meter kit) #1 ea 09/15/22 [Rx Last Taken Unknown] fluticasone propionate 50 mcg/actuation nasal spray,suspension 1 - 2 spray intranasal BID PRN allergies, congestion #16 grams 04/27/23 [Rx Last Taken 07/18/23 03:00] metformin 500 mg tablet 500 mg PO BID DIABETES #180 tabs 04/27/23 [Rx Last Taken 07/17/23 18:00] linaclotide 72 mcg capsule 72 mcg PO DAILY IBS #90 caps 06/27/23 [Rx Last Taken 07/17/23 06:00] acetaminophen 500 mg capsule 1,000 mg PO Q6H PRN pain 07/18/23 [History Last Taken 07/17/23 18:00] atorvastatin 40 mg tablet 40 mg PO QHS CHOLESTEROL #90 tabs 08/21/23 [Rx Last Taken Unknown] medical marijuana card PO unknown 08/21/23 [History Last Taken Unknown] omeprazole 40 mg capsule,delayed release 40 mg PO DAILY PRN Reflux #30 caps 08/21/23 [Rx Last Taken Unknown] trazodone 50 mg tablet 50 - 100 mg (1 - 2 x 50 mg) PO QHS sleep #90 tabs 08/21/23 [Rx Last Taken Unknown] sucralfate 1 gram tablet (Carafate) 1 g PO QACHS #30 tabs 09/27/23 [Rx Last Taken Unknown] metoclopramide HCl 10 mg tablet (Reglan) 10 mg PO Q8H PRN PRN nausea and vomiting #14 tabs 10/01/23 [Rx Last Taken Unknown] ondansetron 4 mg disintegrating tablet 4 mg PO Q6H PRN nausea and vomiting #20 tabs 10/03/23 [Rx Last Taken Unknown] oxycodone 5 mg tablet 7.5 mg PO TID PRN PRN pain 10/21/23 [History Last Taken Unknown] tamsulosin 0.4 mg capsule 0.4 mg PO QHS PRN urinary retention 10/21/23 [History Last Taken Unknown] Allergy/AdvReac Type Severity Reaction Status Date / Time adhesive tape Allergy Rash Verified 10/21/23 17:52 sertraline [From Zoloft] AdvReac Unknown Verified 10/21/23 17:52 Family History (Updated 10/21/23 @ 20:[address] Sara Reaves MD) Brother Heart disease Myocardial infarction 60's CAD (coronary artery disease) Father Myocardial infarction 65 CAD (coronary artery disease) Mother HLD (hyperlipidemia) when son was 16 following MVA, healthy aside HLD. Surgical History H/O cervical spine surgery (08/2020) H/O coronary artery bypass surgery (09/14/11) History of back surgery History of carpal tunnel release History of herniorrhaphy History of lateral meniscus repair of right knee (~2021) History of left heart catheterization (09/09/11) Hx laparoscopic cholecystectomy (~11/2022) Hx of bilateral cataract extraction Status post discectomy for herniated nucleus pulposus Social History (Updated 10/21/23 @ 20:[address] Sara Reaves MD) household members: spouse Smoking Status: Never smoker Smokeless tobacco user: chewing tobacco alcohol intake: current alcohol intake frequency: a few times a month substance use type: does not use caffeine: Yes Type: coffee Number of servings: 2 Vital Signs Vital Signs Vital Signs: 10/24/23 10:48 10/24/23 15:08 10/24/23 14:25 Temperature 98 F Temperature Source Temporal Pulse Rate 75 Pulse Strength Normal (2+) Respiratory Rate 18 Respiratory Effort Normal Non-Labored Respiratory Depth Normal Respiratory Pattern Normal Blood Pressure 118/72 Blood Pressure Mean 87 Blood Pressure Source Monitor Blood Pressure Position Semi-Fowlers Blood Pressure Location Right Arm Pulse Ox 95 Oxygen Delivery Method Room Air Room Air 10/24/23 22:00 10/25/23 05:45 10/25/23 07:46 Temperature 97.6 F L Temperature Source Temporal Pulse Rate 80 Pulse Strength Normal (2+) Respiratory Rate 16 Respiratory Effort Respiratory Depth Respiratory Pattern Blood Pressure 146/83 H Blood Pressure Mean 104 Blood Pressure Source Blood Pressure Position Blood Pressure Location Left Arm Pulse Ox 96 97 Oxygen Delivery Method Room Air Room Air Weight Weight: 184 lb 11.958 oz Body Mass Index (BMI) 26.5 Physical Exam Narrative Back incision scar. Neuro-intact, except for painful hip flexion and knee ext. Medical Records Data Medical Nutrition Assessment Dietitian: Malnutrition Criteria Met Start: 10/22/23 17:13 Freq: Status: Active Protocol: Document 10/22/23 17:14 RMA (Rec: 10/22/23 17:14 RMA [id number]) Nutrition Malnutrition Evidence of Malnutrition Exists Yes Malnutrition (severe): Chronic Evidenced By Suboptimal Energy Intake ( Severe),Weight Loss (Severe) Clinical Problem Chronic Disease or Condition Related Malnutrition Etiology severe protein-calorie malnutrition in the context of chronic disease related to inadequate oral/ennergy intake Signs/Symptoms as evidenced by ~6-7% unintentional weight loss x past 1 month and PO meeting less than 50% estimated nutrition needs x 1-2 months Status Active Problem Recommendation Dietitian Recommendations/Changes Will adjust diet to 2000 calorie/consistent carbohydrate; cardiac. Will add 120ml glucerna shake 4 times per day w/ medpass. Will add 240mL glucerna shake w/ breakfast tray. Adjust ONS as need to optimize PO and prevent further weight loss. Lab / Micro Data 10/25/23 07:30 10/25/23 07:30 Labs: Laboratory Results - last 24 hr 10/24/23 11:34: POC Glucose 162 H 10/24/23 16:48: POC Glucose 132 H 10/25/23 07:30: WBC 8.9, RBC 4.30 L, Hgb 12.2 L, Hct 35.0 L, MCV 81.4, MCH 28.4,MCHC 34.9, RDW Std Deviation 38.3, RDW Coeff of Frankie 13.0, Plt Count 242, MPV 7.7, Immature Gran % (Auto) 0.400, Neut % (Auto) 73.8 H, Lymph % (Auto) 15.5 L, [place] % (Auto) 9.8, Eos % (Auto) 0.2, Baso % (Auto) 0.3, Absolute Neuts (auto) 6.6, Absolute Lymphs (auto) 1.38, Nucleated RBC % 0, PT 13.6, INR 1.0, Sodium 126 L, Potassium 3.1 L, Chloride 92 L, Carbon Dioxide 25.0, Anion Gap 9, BUN 11,Creatinine 0.64 L, Estim Creat Clear Calc 88.72, Est GFR (MDRD) Af Amer 160, EstGFR (MDRD) Non-Af 132, BUN/Creatinine Ratio 17.3, Glucose 109 H, Hemoglobin A1c 6.2 H, Calcium 8.6, Vancomycin Trough 13.6 Micro: Microbiology 10/22/23 07:29 Blood Culture (Wb) - Right Hand Blood Culture - Preliminary No growth in 48 hours. 10/22/23 07:19 Blood Culture (Wb) - Anticubital Right Blood Culture - Preliminary No growth in 48 hours. Assessment & Plan Assessment/Plan (1) Discitis of lumbar region: PLAN: Plan I have reviewed the CT and MRI of lumbar spine done over the last 2 days. Theseshow postsurgical changes of L4-5 laminectomy. I also reviewed the MRI from prior to the July surgery which showed an L4-5 left paracentral disc herniation. The new CT and MRI show evidence of L4-5 endplate irregularity suggestive of discitis. No vacuum phenomenon noticed at L4-5 but vacuum phenomenon noticed at L3-4. Significant superior L5 endplate erosion noticed. Patient has significant foraminal height loss bilaterally. I discussed with Dr. Godoy the imaging findings. I discussed the procedure in detail with patient and family member. Typical approach to the disc would be through the foramen but the patient has significant foraminal height loss and foraminal stenosis which may increase the chances of exiting nerve root injury. One of the possible approaches may be through the L5 pedicle directed upwards going to the L4-5 disc space, with the downside of a track through bone potentially causing spread of organism to the bone and osteomyelitis. Patient however already has an evidence of osteomyelitis involving the superior L5 endplate. Patient is also on antibiotic cover with empiric antibiotics over thelast 2 to 3 days. The risks of biopsy may include but are not limited to persistent infection, bleeding, hematoma formation, need for further surgery, injury to nerves and vessels, spread of infection to surrounding structures, bacteremia, septicemia, CSF leak, headache, noninfectious pathology, nerve root injury, nerve and cauda equina compression from hematoma or infectious material,vasovagal shock, persistent pain, need for surgical intervention, DVT, pulmonaryembolism, cardiopulmonary event. Patient understands and agrees to proceed. Consent was signed. Charges/Coding Visit Charges Inpatient E&M: 75272 Init Hosp L3 10/25/23 1244 <Electronically signed by Bjorn Bradshaw MD> Cosigner Signature (if applicable): CC: Arabella Walter; Saida Cantu; Tray Carreon; Susie Augustin MD; Jessica Ang MD; Claudy Tripathi MD; Dr. Meliton Coronel MD; Dr. Sara Reaves MD; Dr. Ben Velasco MD; Dr. Jaspreet Armstrong MD; Dr. Ivonne Holloway MD; Dr. Ham Giron MD; Dr. Adelso Whitehead MD; Dr. Marshall Bear MD; Dr. Ventura Godoy DO; Dr. Monster Marina DO; Dr. Cheryl Gandhi MD; Dr. Bull Sanchez MD; Dr.Rami Thiago MD; Dr. Tarik Wilkinson MD; Dr. Zach Cartagena MD; Dr. Melody Mar MD; Emily Wilson DO; Modesto Abarca MD~ Signed [facility] Work Phone: 1(327) 651-138803-12-2024 Progress note Author Ochoa Figueroa [facility] October 24, 2023 5:19pm Note Date/Time October 24, 2023 5:1 9pm [facility] Medical Records Department [address] [place] [address] Progress Note - Hospitalist 10/24/23 1713 MR#: [id number] Acct: [id number] Name: JARET BATES Rep #:[id number] : 1955 68 From: Ochoa Mcfarlane PCP: Dr. Marshall Bear MD Status:ADM IN Location: [place] [address] Reason for Visit Reason for Visit: Diagnoses Cerebral infarction, unspecified (10/21/23) Discitis, unspecified, lumbar region (10/21/23) Altered mental status, unspecified (10/21/23) Other specified postprocedural states (10/21/23) Objective Data Objective Data Vital Signs: Vital Signs Temp Pulse Resp BP Pulse Ox O2 Del Method 98 F 75 18 118/72 95 Room Air 10/24/23 15:08 10/24/23 15:08 10/24/23 15:08 10/24/23 15:08 10/24/23 15:08 10/24/23 15:08 Oxygen Delivery Method Room Air Weight: 187 lb 13.341 oz Body Mass Index (BMI) 26.9 Intake & Output: Intake and Output for Last 24 Hours 10/22/23 10/23/23 10/24/23 23:59 23:59 23:59 Intake Total 4305.00 / 4545.00 1485 / 1485 Output Total 550 / 1250 1999 / 1999 Balance 3755.00 / 3295.00 -515 / -515 Medical Nutrition Assessment Dietitian: Malnutrition Criteria Met Start: 10/22/23 17:13 Freq: Status: Active Protocol: Document 10/22/23 17:14 RMA (Rec: 10/22/23 17:14 RMA [id number]) Nutrition Malnutrition Evidence of Malnutrition Exists Yes Malnutrition (severe): Chronic Evidenced By Suboptimal Energy Intake ( Severe),Weight Loss (Severe) Clinical Problem Chronic Disease or Condition Related Malnutrition Etiology severe protein-calorie malnutrition in the context of chronic disease related to inadequate oral/ennergy intake Signs/Symptoms as evidenced by ~6-7% unintentional weight loss x past 1 month and PO meeting less than 50% estimated nutrition needs x 1-2 months Status Active Problem Recommendation Dietitian Recommendations/Changes Will adjust diet to 2000 calorie/consistent carbohydrate; cardiac. Will add 120ml glucerna shake 4 times per day w/ medpass. Will add 240mL glucerna shake w/ breakfast tray. Adjust ONS as need to optimize PO and prevent further weight loss. Lab / Micro Data 10/24/23 07:08 10/24/23 07:08 Labs: Laboratory Results - last 24 hr 10/23/23 17:58: POC Glucose 97 10/23/23 19:04: Vancomycin Trough 14.3 10/23/23 21:01: POC Glucose 80 10/24/23 06:29: POC Glucose 91 10/24/23 07:08: WBC 6.7, RBC 3.94 L, Hgb 11.3 L, Hct 33.0 L, MCV 83.8, MCH 28.7,MCHC 34.2, RDW Std Deviation 40.3, RDW Coeff of Frankie 13.2, Plt Count 246, MPV 7.8, Immature Gran % (Auto) 0.300, Neut % (Auto) 75.2 H, Lymph % (Auto) 14.4 L, [place] % (Auto) 8.9, Eos % (Auto) 0.9, Baso % (Auto) 0.3, Absolute Neuts (auto) 5.1, Absolute Lymphs (auto) 0.97, Nucleated RBC % 0, Sodium 131 L, Potassium 3.3L, Chloride 101, Carbon Dioxide 24.0, Anion Gap 6, BUN 17, Creatinine 0.53 L, Estim Creat Clear Calc 88.72, Est GFR (MDRD) Af Amer 199, Est GFR (MDRD) Non-Af 165, BUN/Creatinine Ratio 32.3 H, Glucose 97, Calcium 8.3 L, Total Bilirubin 1.40 H, AST 17, ALT 18, Alkaline Phosphatase 72, Total Protein 5.9 L, Albumin 2.8 L, Globulin 3.1, Albumin/Globulin Ratio 0.9 10/24/23 11:34: POC Glucose 162 H Micro: Microbiology 10/22/23 07:29 Blood Culture (Wb) - Right Hand Blood Culture - Preliminary No growth in 48 hours. 10/22/23 07:19 Blood Culture (Wb) - Anticubital Right Blood Culture - Preliminary No growth in 48 hours. 10/22/23 01:13 Mucosa - Nasopharyngeal Coronavirus COVID-19 PCR - Final 10/22/23 01:13 Mucosa - Nasopharyngeal Respiratory Panel (PCR) - Final Radiography Diagnostic Testing: Radiology Impression Lumbar Spine CT 10/24/23 08:45 IMPRESSION: Findings suggestive of osteomyelitis of the L4 and L5 vertebrae as described with a marked degree of disc space narrowing at that site. No paravertebral soft tissue swelling is seen. Electronically Signed: Jaspreet Armstrong MD at 10:06 EDT , Physical Exam Narrative Seen and examined. Patient sitting in the chair in the morning. No fever. In the afternoon nurse told me that patient is agitated, trying to get out of the bed and walking on the floor. Patient also has hallucinating. General: Awake alert oriented times 3 in the morning but afternoon patient got confused disoriented agitated. HEENT: Atraumatic, PERRLA, EOMI, Normocephalic Oral: No Gingival or Mucosal Lesions/ Ulcerations Neck: Supple, No JVD, Negative Carotid Bruits Chest wall/Lungs: Air entry diminished in bilateral lung bases. No crepitation/rhonchi Cardiovascular: Regular rate, Regular Rhythm, Normal S1, Normal S2, No M/G/R Abdomen: Bowel Sounds Present, Soft, Non Tender, Non-Distended : No dysuria. No renal angle tenderness. No suprapubic tenderness. Extremities: No edema, Capillary Refill Less than 3 Seconds Skin: No rashes, No breakdown Musculoskeletal: No Tenderness to Palpation of Joints or Extremities. Spine: Postop surgical scar well-healed. Mild tenderness present all around lumbar and paraspinal area. Muscle stiffness. ROM severely limited and painfuleven with slightest motion Neurological: Cranial nerves II-XII grossly intact, DTR 2+/4. No neck rigidity.Brudzinski sign positive of both legs on extension of calf muscle. Psych/Mental Status: Flat affect. Restless and agitated. Assessment & Plan Assessment/Plan (1) Acute CVA (cerebrovascular accident): PLAN: Plan The patient is a 68 y/o M is being admitted for intermittent fever after surgeryalong with confusion lethargy/altered mental status, severe back pain and expressive aphasia. Expressive aphasiadue to lethargy. #1. Acute encephalopathy/altered mental status/expressive aphasia probably related to pain medication: Patient was found very lethargic and was on oxycodone 7.5 mg 3 times daily as needed. Patient currently is awake and alert and in severe back pain with stiffness therefore oxycodone resumed. Patient wasevaluated by neurologist and does not think patient to clinical he had a stroke but probably postop infection/complication as mentioned below. CT head and CTA head and neck does not show acute abnormality or LVO. Discontinue Plavix. 10/22: Patient did not had any fever. Tmax 99.3 Fahrenheit. Acute encephalopathy resolved. 10/23: Patient was fine yesterday but today restless and aggressive and agitated. Haldol 2 mg and 12.5 mg Phenergan ordered. Oxycodone dose was decreased to 2.5mg for moderate pain and 5 mg for severe pain respectively. 2. Acute on chronic back pain with radiculopathy due to recurrent disc herniation status post repeat laminectomy L4-5 on the left with discectomy and decompression of L5 nerve root with with vertebral osteomyelitis and discitis ofL4-L5: Patient had back surgery as mentioned above on 07/18/2023. As per heis having on and off fever and chills after surgery. Initially he had enuresis/bedwetting and then urinary incontinence since then. Patient has very restricted mobility due to back stiffness and pain and on oxycodone 7.5 mg 3 times daily as needed. Patient put back on oxycodone 7.5 mg 3 times daily with holding parameters. MRIlumbar spine with and without contrast and MRI brain with and without contrast on. But lumbar spine takes the priority. Will hold for spinal tap as patient might have lumbar abscess or infection. Discussed with the [facility] neurologist. Patient on IV vancomycin, ampicillin and ceftriaxone, meningitis regimen. Orthospine and ID are consulted. I talked to Dr. Godoy, spine surgeon. PT andOT ordered. TSH normal. 10/22: Patient still has severe back pain even on oxycodone 7.5 mg 3 times daily and Toradol 15 mg every 6 hourly as needed. Patient not move bowel for last 2 to 3 days therefore on Senna-S 2 tablet twice daily, MiraLAX and Dulcolax oral ordered. Oxycodone increased to 10 mg every 6 hourly as needed. MRI lumbar spine and brain with and without contrast were ordered but patient could only have noncontrast study because of severe pain. Discussed with the spine surgeonand does not think any paraspinal abscess but will wait for official report. Lumbar spine reported newly developed moderate marrow edema throughout L4-L5 vertebral bodies with mild liquefaction within disc of L4-L5 and mild cortical erosions of the endplates finding consistent with vertebral osteomyelitis and discitis. Disc spaces also narrowed. No demonstrated paraspinal abscess or anymore swelling. No visualized epidural fluid collection. Patient on IV antibiotics. ID is consulted. MRI brain shows involutional chronic changes butminges could not be evaluated because of no intravenous contrast was administered for reasons mentioned above. 10/23: CT lumbar spine was done which similarly shows osteomyelitis and discitis. ID requested CT-guided biopsy. 3. Hypotonic isovolemic hyponatremia: Even though patient on IV fluid normal saline, serum sodium did not increase it remains 131. Will discontinue IV fluid. Patient might have SIADH after neurosurgery 10/22: Serum sodium is similar for last 3 days. 4. Hypokalemia: Admission K+ 3.2, magnesium level normal. Potassium replaced 10/20: Hypokalemia corrected. 10/13: Mild hypokalemia potassium corrected. B12 also low 177 therefore vitamin B12 ordered 5. Chronic asthma: Per current list not on inhalers,PRN albuterol, HOB, IS parameters. 6. CAD: Status post CABG x 3, continue aspirin, changed to high-dose statin. #7. Diabetes mellitus type II with chronic neuropathy: Hold oral home regimen, hemoglobin A1c 6.4, glucose controlled. Accu-Chek ACH cover with Humalog sliding scale. Continue patient home chronic gabapentin regimen. #8. Hyperlipidemia: Changing to high-dose statin regimen. LDL 123. HDL normal. #9. GERD: Will continue patient home PPI and sucralfate regimen. #10. BPH: We will continue patient on Flomax regimen. #11. Tobacco Abuse: Encouraged to tobacco cessation, inpatient consultation perRT, NR if desired. Patient usually uses 1 can every 3 to 4 days. #12. Restless leg syndrome: On a regimen, if necessary may add Requip #13. DVT prophylaxis: Lovenox. #14. CODE status: Patient ALLISON is his was present and living will is currently in place. Discussed CODE status at length including difference betweenFULL code, DNR-CCA and DNR-CC status. Following discussions about the differences in these status, requested Full Code status. Total time of the visit including total time spent in counseling or coordinationof care, (more than 50% of the total time, spent in obtaining medical information from nurses and other ancillary care providers,explaining to the patient about labs, imaging, diagnosis and management of active complex medical conditions), complete history taking from patient's , discussion with [facility] neurologist and orthospine surgeon Dr. Walt Whitehead, review of labs and imagingis 40 minutes. Microbiology Past 72 Hours 10/22/23 01:13 Mucosa - Nasopharyngeal Coronavirus COVID-19 PCR - Final 10/22/23 01:13 Mucosa - Nasopharyngeal Respiratory Panel (PCR) - Final Laboratory Results 10/22/23 17:34: POC Glucose 139 H 10/22/23 20:46: POC Glucose 116 H 10/23/23 05:55: WBC 7.7, RBC 3.92 L, Hgb 11.2 L, Hct 33.3 L, MCV 84.9, MCH 28.6,MCHC 33.6, RDW Std Deviation 41.1, RDW Coeff of Frankie 13.3, Plt Count 256, MPV 8.1, Immature Gran % (Auto) 0.400, Neut % (Auto) 76.1 H, Lymph % (Auto) 14.6 L, [place] % (Auto) 8.2, Eos % (Auto) 0.4, Baso % (Auto) 0.3, Absolute Neuts (auto) 5.9, Absolute Lymphs (auto) 1.13, Nucleated RBC % 0, Sodium 132 L, Potassium 3.8, Chloride 102, Carbon Dioxide 23.0, Anion Gap 7, BUN 20 H, Creatinine 0.67 L, Estim Creat Clear Calc 88.72, Est GFR (MDRD) Af Amer 150, Est GFR (MDRD) Non-Af 124, BUN/Creatinine Ratio 29.8 H, Glucose 107 H, Calcium 8.0 L, Total Bilirubin 1.30 H, AST 17, ALT 20, Alkaline Phosphatase 69, Total Protein 5.8 L, Albumin 2.8 L, Globulin 3.0, Albumin/Globulin Ratio 0.9, Vitamin B12 177 L, TSH 2.40 10/23/23 06:38: POC Glucose 104 Clinical Impression(s) from Imaging Studies Brain CT 10/21/23 17:19 IMPRESSION: Chronic age related changes and atrophy. No acute abnormality or significant change. Electronically Signed: Toribio Giraldo MD at 17:34 EST Reading Location ID and State: [employer] / [place] , Service support , ADDENDUM: 10/21/23 1746 IMPRESSION: Chronic age related changes and atrophy. No acute abnormality or significant change. N.B. : The above Results were Read Back by Toribio Giraldo MD to Kayli Granados DO, and understanding confirmed on 10/21/2023 17:39:16 (ET). Electronically Signed: Toribio Giraldo MD at 17:34 EST Reading Location ID and State: [employer] / [place] , Service support , Head/Neck CTA 10/21/23 17:19 IMPRESSION: No acute abnormality. No large vessel occlusions. 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 Electronically Signed: Toribio Giraldo MD at 17:49 EST , ADDENDUM: 10/21/23 1758 IMPRESSION: No acute abnormality. No large vessel occlusions. 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 N.B. : The above Results were Read Back by Toribio Giraldo MD to Kayli Granados DO, and understanding confirmed on 10/21/2023 17:51:20 (ET). Electronically Signed: Toribio Giraldo MD at 17:49 EST , Chest X-Ray 10/21/23 18:05 IMPRESSION: No definite acute or significant abnormality seen. Electronically Signed: Toribio Giraldo MD at 19:00 EST , Charges/Coding Visit Charges Inpatient E&M: 25188 Subs Hosp L2 10/24/23 1719 <Electronically signed by Ochoa Figueroa MD> Cosigner Signature (if applicable): CC: ~ Signed [facility] Work Phone: 1(701) 216-993403-12-2024 Progress note Author Dae Das [facility] October 24, 2023 2:02pm Note Date/Time October 24, 2023 3:0 0pm [facility] Medical Records Department [address] [place] [address] Progress Note - Neurology 10/24/23 1355 MR#: [id number] Acct: [id number] Name: JARET BATES Rep #:[id number] : 1955 68 From: Dae Das MD PCP: Dr. Marshall Bear MD Status:ADM IN Location: [place] [address] Assessment and Plan: Neuro Assessment/Plan JARET BATES, is a 68 M who had recurrent disc herniation, s/p repeat laminectomy L4-5 with discectomy and decompression of L5 nerve root in 07/2023. Since surgery in July, heh as had progressive back pain and intermittent fevers. Seen in clinic in August and MRI L spine was ordered to evaluate but was denied by insurance. HE is coming in now now with worsening back pain and some confusion over the past few days. MRI L spine consistent with discitis and osteomyelitis. MRI brain without contrast with small vessel white matter disease, no acute findings. He has been improving. He is alert oriented following commands appropriately. Lower suspicion for RETAIL AGENT infection at this time. His confusion is in the setting of underlying infection. Improvement is reassuring. Treatment of osteomyelitis/discitis per ID and primary team Delirium precautions I personally attended this patient and spent a total time of 45 minutes evaluating this patient including clinical assessment, review of chart, medical history imaging, and determining appropriate treatment and workup. Subject: Neurology Subjective JARET BATES is a 68 year old M, who we are seeing in consultation in the setting of osteomyelitis and discitis. Improving. NIHSS NIHSS Nursing Documentation NIHSS Nursing Documentation: NIHSS: Ischemic Stroke/TIA Start: 10/21/23 20:32 Text: For PCU Patients: NIH and Neuro Check every 4 Status: Complete hours and PRN Freq: [id number] Protocol: Activity Type Activity Date Activity User E-sign Co-sign Detail Recorded Client Recorded Date Recorded By Document 10/23/23 16:30 Desktop 10/23/23 18:01 10/23/23 16:30 NIH Stroke Scale [NIHSS] A score of 0 is normal or asymptomatic . Total possible score is 42. Inpatient: RN or Physician to activate a stroke alert for onset of new stroke symptoms or with NIHSS increase >/= 3 points. Following change in neurological status, NIHSS will be performed per physician order or more frequently PRN. -1a. Level of Consciousness Alert; keenly responsive -1b. LOC Questions Answers BOTH questions correctly. -1c. LOC Commands Performs both tasks correctly . -2. Best Gaze Normal -3. Visual No visual loss -4. Facial Palsy Normal symmetrical movements -5a. Left Arm No drift; arm holds 90 (or 45 ) degrees for full 10 seconds -5b. Right Arm No drift; arm holds 90 (or 45 ) degrees for full 10 seconds -6a. Left Leg Drift; leg falls by the end of 5- seconds, but does not hit bed -6b. Right Leg Drift; leg falls by the end of 5- seconds, but does not hit bed -7. Limb Ataxia Absent -8. Sensory Normal; no sensory loss -9. Best Language Mild-to- moderate aphasia; -10. Dysarthria Mild-to- moderate dysarthria; -11. Extinction and Inattention No abnormality -Total 4 Query Text:A score of 0 is normal or asymptomatic. Total possible score is 42 . ED: Notify Physician for NIHSS increase by > / = 3 points. Inpatient: RN or Physician to activate a stroke alert for NIHSS increase of > / = 3 points. Coma Scale [Assess] -Eye Opening Spontaneous -Motor Obeys Commands -Verbal Oriented [Total] -Coma Scale Total 15 EEG Results Procedure Details EEG Procedure Details: JARET BATES is a 68 year old M with a past medical history of , who presents for evaluation of Electroencephalogram on DATE at TIME Objective Data Objective Data Vital Signs: Vital Signs Temp Pulse Resp BP Pulse Ox O2 Del Method 97.8 F 68 18 114/86 H 97 Room Air 10/24/23 08:27 10/24/23 08:27 10/24/23 08:27 10/24/23 08:27 10/24/23 08:46 10/24/23 08:46 Oxygen Delivery Method Room Air Weight: 85.2 kg Body Mass Index (BMI) 26.9 Intake & Output: Intake and Output for Last 24 Hours 10/22/23 10/23/23 10/24/23 23:59 23:59 23:59 Intake Total 4305.00 / 4545.00 945 / 945 Output Total 550 / 1250 1200 / 1200 Balance 3755.00 / 3295.00 -255 / -255 Medical Nutrition Assessment Dietitian: Malnutrition Criteria Met Start: 10/22/23 17:13 Freq: Status: Active Protocol: Document 10/22/23 17:14 RMA (Rec: 10/22/23 17:14 RMA [id number]) Nutrition Malnutrition Evidence of Malnutrition Exists Yes Malnutrition (severe): Chronic Evidenced By Suboptimal Energy Intake ( Severe),Weight Loss (Severe) Clinical Problem Chronic Disease or Condition Related Malnutrition Etiology severe protein-calorie malnutrition in the context of chronic disease related to inadequate oral/ennergy intake Signs/Symptoms as evidenced by ~6-7% unintentional weight loss x past 1 month and PO meeting less than 50% estimated nutrition needs x 1-2 months Status Active Problem Recommendation Dietitian Recommendations/Changes Will adjust diet to 2000 calorie/consistent carbohydrate; cardiac. Will add 120ml glucerna shake 4 times per day w/ medpass. Will add 240mL glucerna shake w/ breakfast tray. Adjust ONS as need to optimize PO and prevent further weight loss. Lab / Micro Data 10/24/23 07:08 10/24/23 07:08 Labs: Laboratory Results - last 24 hr 10/23/23 12:03: POC Glucose 108 H 10/23/23 17:58: POC Glucose 97 10/23/23 19:04: Vancomycin Trough 14.3 10/23/23 21:01: POC Glucose 80 10/24/23 06:29: POC Glucose 91 10/24/23 07:08: WBC 6.7, RBC 3.94 L, Hgb 11.3 L, Hct 33.0 L, MCV 83.8, MCH 28.7, MCHC 34.2, RDW Std Deviation 40.3, RDW Coeff of Frankie 13.2, Plt Count 246, MPV 7.8, Immature Gran % (Auto) 0.300, Neut % (Auto) 75.2 H, Lymph % (Auto) 14.4 L, [place] % (Auto) 8.9, Eos % (Auto) 0.9, Baso % (Auto) 0.3, Absolute Neuts (auto) 5.1, Absolute Lymphs (auto) 0.97, Nucleated RBC % 0, Sodium 131 L, Potassium 3.3 L, Chloride 101, Carbon Dioxide 24.0, Anion Gap 6, BUN 17, Creatinine 0.53 L, Estim Creat Clear Calc 88.72, Est GFR (MDRD) Af Amer 199, Est GFR (MDRD) Non-Af 165, BUN/Creatinine Ratio 32.3 H, Glucose 97, Calcium 8.3 L, Total Bilirubin 1.40 H, AST 17, ALT 18, Alkaline Phosphatase 72, Total Protein 5.9 L, Albumin 2.8 L, Globulin 3.1, Albumin/Globulin Ratio 0.9 Micro: Microbiology 10/22/23 07:29 Blood Culture (Wb) - Right Hand Blood Culture - Preliminary No growth in 48 hours. 10/22/23 07:19 Blood Culture (Wb) - Anticubital Right Blood Culture - Preliminary No growth in 48 hours. 10/22/23 01:13 Mucosa - Nasopharyngeal Coronavirus COVID-19 PCR - Final 10/22/23 01:13 Mucosa - Nasopharyngeal Respiratory Panel (PCR) - Final Radiography Diagnostic Testing: Radiology Impression Echocardiogram 10/21/23 20:32 Interpretation Summary Normal LV size. Left ventricular systolic function is normal. The estimated ejection fraction is 60 %. Stage 1 diastolic dysfunction. Bubble contrast study negative for right to left interatrial shunt. Mild aortic stenosis. Mean aortic valve gradient 12 mmHg. Ordering Physician: Sara Reaves Performed By: Erasmo Malhotra RCS Lumbar Spine CT 10/24/23 08:45 IMPRESSION: Findings suggestive of osteomyelitis of the L4 and L5 vertebrae as described with a marked degree of disc space narrowing at that site. No paravertebral soft tissue swelling is seen. Electronically Signed: Jaspreet Armstrong MD at 10:06 EDT , Physical Exam Narrative Patient alert oriented x4, no aphasia or dysarthria. Naming adn comprehension intact. Follows commands appropriately. Able to do simple math. All extremities antigravity with no focal deficits. 10/24/23 1402 <Electronically signed by Dae Das MD> Cosigner Signature (if applicable): CC: ~ Signed [facility] Work Phone: 1(101) 971-795203-12-2024 Progress note Author Tarik Wilkinson [facility] October 24, 2023 10:19am Note Date/Time October 24, 2023 10: 19am [facility] Medical Records Department [address] [place] [address] Progress Note - Infect Disease 10/24/23 1016 MR#: [id number] Acct: [id number] Name: JARET BATES Rep #:[id number] : 1955 68 From: Tarik cao MD PCP: Dr. Marshall Bear MD Status:ADM IN Location: [place] [id number] Physical Exam Narrative Feeling better, back less sore, up at bedside with PT. No fever. Const alert and no apparent distress Resp normal air movement and clear to auscultation bilaterally Cardio regular rate and regular rhythm GI soft to palpation, non-tender and non-distended Skin no rashes or lesions noted ID ID: Route of nutrition/ use of supplements: [] Nutritional Intake: [] IV Site: [] Gan Catheter: [] Assessment & Plan Assessment/Plan (1) Altered mental status: (2) S/P laminectomy: (3) Discitis of lumbar region: PLAN: Had lumbar laminectomy and discectomy L4-5 on 07/18/[address] Godoy here. Since then, progressive pain, new fever and confusion. Bcx ngtd. Low suspicion for meningitis at this point. MRI shows suspected discitis/osteo. At risk for nosocomial organisms. No epidural abscess seen. Recommend aspiration of disc/bone with orosco culture sent to try to find an organism. Cont empiric vanc/ceftriaxone; if he worsens, would change ceftriaxone to cefepime to cover for pseudomonas. He is improved today. Will follow 10/24/23 1019 <Electronically signed by Tarik Wilkinson MD> Cosigner Signature (if applicable): CC: ~ Signed [facility] Work Phone: 1(415) 410-129903-11-2024 Consult note Author Tarik Billings [facility] October 23, 2023 8:25pm Note Date/Time October 23, 2023 8:1 9pm [facility] Medical Records Department [address] [place] [address] Pharmacokinetic/Renal -Consult 10/23/232018 MR#: [id number] Acct: [id number] Name: BATESJARET QUESADA Rep #:[id number] : 1955 68 From: Tairk Billings PCP: Dr. Marshall Bear MD Status:ADM IN Y Location: [place] [address] Consult Antibiotic Management Pharmacy has been consulted to manage selected antibiotic: Vancomycin Type of Intervention Type of Consult: New start Suspected Infection Suspected Infection: Osteomyelitis Prior Doses of Antibiotics Prior Doses of Antibiotics Received/Current Regimen: Received initial dose of 2000mg iv x 1 3.10.24 @0756. Continued with 1500mg iv q12h. Labs Labs: Sodium 132 mmol/L (136-145) L 10/23/23 05:55 Potassium 3.8 mmol/L (3.5-5.1) 10/23/23 05:55 Chloride 102 mmol/L (98-107) 10/23/23 05:55 Carbon Dioxide 23.0 mmol/L (21.0-32.0) 10/23/23 05:55 Anion Gap 7 (5-15) 10/23/23 05:55 BUN 20 mg/dL (7-18) H 10/23/23 05:55 Creatinine 0.67 mg/dL (0.70-1.30) L 10/23/23 05:55 Est GFR (MDRD) Af Amer 150 mL/min (>60) 10/23/23 05:55 Est GFR (MDRD) Non-Af 124 mL/min (>60) 10/23/23 05:55 BUN/Creatinine Ratio 29.8 RATIO (10-20) H 10/23/23 05:55 Glucose 107 mg/dL (74-106) H 10/23/23 05:55 Vancomycin Trough 14.3 ug/mL (5.0-15.0) 10/23/23 19:04 Microbiology Microbiology: Microbiology 10/22/23 01:13 Mucosa - Nasopharyngeal Coronavirus COVID-19 PCR - Final 10/22/23 01:13 Mucosa - Nasopharyngeal Respiratory Panel (PCR) - Final Dosing Weight Weight used for dosin kg Estimated Creatinine Clearance Estimated Creatinine Clearance: >100ml/min Goal Trough Goal Trough: 15-20 mcg/mL Pharmacy Plan for Drug Dosing Pharmacy Plan for Drug Dosing: Trough today at ~ 10.5hrs post dose was 14.3 and slightly below desired level [id number]/ml. Recommend an increase in dose to 1750mg iv q12h with new trough level before 4th dose given. Pharmacy Service will continue to monitor and adjust dosing as required. Follow-Up Labs Follow-Up Labs: Trough: Vancomycin (3.13.24 @0730) 10/23/232024 <Electronically signed by Tarik Billings> Date _ Tarik Billings Cosigner Signature (if applicable): Date CC: ~ Signed [facility] Work Phone: 1(550) 532-585803-11-2024 Consult note Author Tarik Wilkinson [facility] October 23, 2023 3:13pm Note Date/Time October 23, 2023 3:1 3pm [facility] Medical Records Department [address] [place] [address] Consultation - Infectious Dx 10/23/23 1504 MR#: [id number] Acct: [id number] Name: JARET BATES Rep #:[id number] : 1955 68 From: Tarik cao MD PCP: Dr. Marshall Bear MD Status:ADM IN Location: [place] [address] Assessment & Plan Assessment/Plan (1) Altered mental status: (2) S/P laminectomy: (3) Discitis of lumbar region: PLAN: Had lumbar laminectomy and discectomy L4-5 on 07/18/[address] Godoy here. Since then, progressive pain, new fever and confusion. Bcx pending. On empiricvanc/amp/ceftriaxone. Low suspicion for meningitis at this point. MRI shows suspected discitis/osteo. At risk for nosocomial organisms. No epidural abscess seen. Recommend aspiration of disc/bone with orosco culture sent to try to find an organism. Cont empiric vanc/ceftriaxone, will stop ampicillin; if he worsens, would change ceftriaxone to cefepime to cover for pseudomonas. Will follow, thank you, d/w Dr. Figueroa HPI Consult Data Date of Consult: 10/23/23 HPI Narrative Reason for Consultation: discitis/osteo HPI Narrative: JARET BATES, is a 68 M who had recurrent disc herniation, taken to OR 07/18/[address] Godoy at [facility] for repeat laminectomy L4-5 on the left with discectomy anddecompression of L5 nerve root. Since the surgery, has had progressive lower back pain, chills, confusion, bladder incontinence. Had nerve root injections done without improvement. Given course of abx for sinusitis by PCP early in Aug, no abx since then. Had 4 ED visits over this time due to ongoing symptoms. Admitted here 10/20 from ED with new aphasia. Denies any headache or neck pain. Started on vanc/amp/ceftriaxone. MRI done, seen by neuro and Dr. Godoy. Additional history obtained from at bedside. Full ROS performed and neg except as noted above. [facility] Medical History Agent orange exposure Alcohol use Ambulates with cane Arthritis Arthropathy of cervical facet joint Asthma Atherosclerotic heart disease of [place] coronary artery without angina pectoris Back pain Bilirubinuria Cancer Cardiology follow-up encounter Cervical spondylosis Chondromalacia of both patellae Chondromalacia, left knee Chondromalacia, right knee Contact with or exposure to other viral diseases COVID-19 virus detected (11/19/20) Degeneration of cervical disc without myelopathy Degeneration of intervertebral disc of lumbosacral region Diabetes Fusion of spine, cervical region High cholesterol (~08/21/23) History of echocardiogram History of IBS History of pain when walking History of steroid therapy History of stress test Hyperlipemia Injury of head and neck Left knee DJD Nonrheumatic aortic (valve) stenosis with insufficiency Obesity Opioid dependence Prostate disease Radiculopathy of lumbosacral region Restless legs Right knee DJD Shortness of breath on exertion Smokeless tobacco use Spinal stenosis of lumbosacral region Spondylosis of lumbosacral region without myelopathy or radiculopathy Syncope Tear of medial meniscus of right knee Type 2 diabetes mellitus Wears hearing aid Home Medications aspirin 81 mg tablet,delayed release 81 mg PO DAILY HEART HEALTH 12/23/15 [History Last Taken 07/11/23] multivitamin 1 tab PO DAILY supplement 07/09/19 [History Last Taken 07/17/23 06:00] baclofen 10 mg tablet 10 mg PO TID PRN PRN Muscle Spasm 05/14/20 [History Last Taken 07/17/23 18:00] gabapentin 100 mg capsule 200 mg PO TID neuropathy 05/14/20 [History Last Taken 07/17/23 18:00] naproxen sodium 220 mg capsule (Aleve) 220 mg PO BID PRN Pain 02/04/22 [History Last Taken 07/17/23 18:00] albuterol sulfate 90 mcg/actuation aerosol inhaler 1 - 2 puff inhalation Q4H PRNPRN Wheezing #8.5 grams 04/21/22 [Rx Last Taken Unknown] handicap placard #1 ea 04/21/22 [Rx Last Taken Unknown] blood sugar diagnostic (FreeStyle Lite Strips) #100 ea 09/15/22 [Rx Last Taken Unknown] blood-glucose meter (FreeStyle Lite Meter kit) #1 ea 09/15/22 [Rx Last Taken Unknown] fluticasone propionate 50 mcg/actuation nasal spray,suspension 1 - 2 spray intranasal BID PRN allergies, congestion #16 grams 04/27/23 [Rx Last Taken 07/18/23 03:00] metformin 500 mg tablet 500 mg PO BID DIABETES #180 tabs 04/27/23 [Rx Last Taken 07/17/23 18:00] linaclotide 72 mcg capsule 72 mcg PO DAILY IBS #90 caps 06/27/23 [Rx Last Taken 07/17/23 06:00] acetaminophen 500 mg capsule 1,000 mg PO Q6H PRN pain 07/18/23 [History Last Taken 07/17/23 18:00] atorvastatin 40 mg tablet 40 mg PO QHS CHOLESTEROL #90 tabs 08/21/23 [Rx Last Taken Unknown] medical marijuana card PO unknown 08/21/23 [History Last Taken Unknown] omeprazole 40 mg capsule,delayed release 40 mg PO DAILY PRN Reflux #30 caps 08/21/23 [Rx Last Taken Unknown] trazodone 50 mg tablet 50 - 100 mg (1 - 2 x 50 mg) PO QHS sleep #90 tabs 08/21/23 [Rx Last Taken Unknown] sucralfate 1 gram tablet (Carafate) 1 g PO QACHS #30 tabs 09/27/23 [Rx Last Taken Unknown] metoclopramide HCl 10 mg tablet (Reglan) 10 mg PO Q8H PRN PRN nausea and vomiting #14 tabs 10/01/23 [Rx Last Taken Unknown] ondansetron 4 mg disintegrating tablet 4 mg PO Q6H PRN nausea and vomiting #20 tabs 10/03/23 [Rx Last Taken Unknown] oxycodone 5 mg tablet 7.5 mg PO TID PRN PRN pain 10/21/23 [History Last Taken Unknown] tamsulosin 0.4 mg capsule 0.4 mg PO QHS PRN urinary retention 10/21/23 [History Last Taken Unknown] Allergy/AdvReac Type Severity Reaction Status Date / Time adhesive tape Allergy Rash Verified 10/21/23 17:52 sertraline [From Zoloft] AdvReac Unknown Verified 10/21/23 17:52 Family History (Updated 10/21/23 @ 20:[address] Sara Reaves MD) Brother Heart disease Myocardial infarction 60's CAD (coronary artery disease) Father Myocardial infarction 65 CAD (coronary artery disease) Mother HLD (hyperlipidemia) when son was 16 following MVA, healthy aside HLD. Surgical History H/O cervical spine surgery (08/2020) H/O coronary artery bypass surgery (09/14/11) History of back surgery History of carpal tunnel release History of herniorrhaphy History of lateral meniscus repair of right knee (~2021) History of left heart catheterization (09/09/11) Hx laparoscopic cholecystectomy (~11/2022) Hx of bilateral cataract extraction Status post discectomy for herniated nucleus pulposus Social History (Updated 10/21/23 @ 20:[address] Sara Reaves MD) household members: spouse Smoking Status: Never smoker Smokeless tobacco user: chewing tobacco alcohol intake: current alcohol intake frequency: a few times a month substance use type: does not use caffeine: Yes Type: coffee Number of servings: 2 Physical Exam Const Constitutional Narrative: in distress, uncomfortable General Appearance: cooperative HEENT normocephalic and head/scalp atraumatic Eyes PERRL and EOMs intact bilaterally Neck supple and No nodes Resp normal air movement and clear to auscultation bilaterally Cardio regular rate and regular rhythm GI soft to palpation, non-tender and non-distended Extremity General Extremity: Negative for edema Skin no rashes or lesions noted Neuro CN's II-XII intact bilaterally Medical Records Data Medical Nutrition Assessment Dietitian: Malnutrition Criteria Met Start: 10/22/23 17:13 Freq: Status: Active Protocol: Document 10/22/23 17:14 RMA (Rec: 10/22/23 17:14 RMA [id number]) Nutrition Malnutrition Evidence of Malnutrition Exists Yes Malnutrition (severe): Chronic Evidenced By Suboptimal Energy Intake ( Severe),Weight Loss (Severe) Clinical Problem Chronic Disease or Condition Related Malnutrition Etiology severe protein-calorie malnutrition in the context of chronic disease related to inadequate oral/ennergy intake Signs/Symptoms as evidenced by ~6-7% unintentional weight loss x past 1 month and PO meeting less than 50% estimated nutrition needs x 1-2 months Status Active Problem Recommendation Dietitian Recommendations/Changes Will adjust diet to 2000 calorie/consistent carbohydrate; cardiac. Will add 120ml glucerna shake 4 times per day w/ medpass. Will add 240mL glucerna shake w/ breakfast tray. Adjust ONS as need to optimize PO and prevent further weight loss. Lab / Micro Data Attestation: I reviewed the patient's lab results. 10/23/23 05:55 10/23/23 05:55 Labs: Laboratory Results - last 24 hr 10/22/23 17:34: POC Glucose 139 H 10/22/23 20:46: POC Glucose 116 H 10/23/23 05:55: WBC 7.7, RBC 3.92 L, Hgb 11.2 L, Hct 33.3 L, MCV 84.9, MCH 28.6,MCHC 33.6, RDW Std Deviation 41.1, RDW Coeff of Frankie 13.3, Plt Count 256, MPV 8.1, Immature Gran % (Auto) 0.400, Neut % (Auto) 76.1 H, Lymph % (Auto) 14.6 L, [place] % (Auto) 8.2, Eos % (Auto) 0.4, Baso % (Auto) 0.3, Absolute Neuts (auto) 5.9, Absolute Lymphs (auto) 1.13, Nucleated RBC % 0, Sodium 132 L, Potassium 3.8, Chloride 102, Carbon Dioxide 23.0, Anion Gap 7, BUN 20 H, Creatinine 0.67 L, Estim Creat Clear Calc 88.72, Est GFR (MDRD) Af Amer 150, Est GFR (MDRD) Non-Af 124, BUN/Creatinine Ratio 29.8 H, Glucose 107 H, Calcium 8.0 L, Total Bilirubin 1.30 H, AST 17, ALT 20, Alkaline Phosphatase 69, Total Protein 5.8 L, Albumin 2.8 L, Globulin 3.0, Albumin/Globulin Ratio 0.9, Vitamin B12 177 L, TSH 2.40 10/23/23 06:38: POC Glucose 104 10/23/23 12:03: POC Glucose 108 H Imaging Radiology Impression Carotid Duplex 10/21/23 20:32 Interpretation Summary Mild (<50%) stenosis right extracranial internal carotid. Normal left extracranial internal carotid. Patent and antegrade vertebrals bilaterally. Ordering Physician: Sara Reaves Referring Physician: Marshall Bear M.D. Performed By: Rena Rodríguez RVT Chest X-Ray 10/23/23 05:40 IMPRESSION: No evidence of acute cardiopulmonary disease. Electronically Signed: Julio Soto DO at 6:54 EDT , Brain MRI 10/23/23 09:23 IMPRESSION: 1. Involutional and chronic ischemic changes of the brain, as described above. 2. No intravenous contrast was administered, therefore the meninges cannot be evaluated on this study. No obvious pachymeningeal hyperintensity or thickening is seen. Electronically Signed: Arnav Nobles MD at 11:55 EDT , Lumbar Spine MRI 10/23/23 09:23 IMPRESSION: 1. Newly developed moderate marrow edema throughout the L4 and L5 vertebral bodies which was not present on May 27, 2023 study. Also interval development of mild liquefaction within the disc at L4-L5 and mild cortical erosion of the endplates, all findings consistent with vertebral osteomyelitis and discitis. The disc spaces also narrowed compared to the prior MRI as well as the prior CT of the lumbar spine dated August 14, 2023 and is moderately narrowed compared to mild to moderate narrowing on those studies. There is no demonstrated paraspinal abscess or edema or swelling. 2. No visualized epidural fluid collections 3. Multilevel degenerative changes, as described above. Electronically Signed: Arnav Nobles MD at 11:52 EDT Reading Location ID and State: [address] [place] [address] , Service support , ADDENDUM: 10/23/23 1318 IMPRESSION: 1. Newly developed moderate marrow edema throughout the L4 and L5 vertebral bodies which was not present on May 27, 2023 study. Also interval development of mild liquefaction within the disc at L4-L5 and mild cortical erosion of the endplates, all findings consistent with vertebral osteomyelitis and discitis. The disc spaces also narrowed compared to the prior MRI as well as the prior CT of the lumbar spine dated August 14, 2023 and is moderately narrowed compared to mild to moderate narrowing on those studies. There is no demonstrated paraspinal abscess or edema or swelling. 2. No visualized epidural fluid collections 3. Multilevel degenerative changes, as described above. N.B. : Araceli Love RN, confirmed on 10/23/2023 13:11:10 (ET) that the healthcare facility has received the radiology report. Electronically Signed: Arnav Nobles MD at 11:52 EDT Reading Location ID and State: [address] [place] [address] , Service support , 10/23/23 1513 <Electronically signed by Tarik Wilkinson MD> Cosigner Signature (if applicable): CC: Arabella Walter; Saida Cantu; Tray Carreon; Susie Augustin MD; Jessica Ang MD; Claudy Tripathi MD; Dr. Meliton Coronel MD; Dr. Sara Reaves MD; Dr. Ben Velasco MD; Dr. Ivonne Holloway MD; Dr. Ham Giron MD; Dr. Adelso Whitehead MD;Dr. Marshall Bear MD; Dr. Ventura Godoy DO; Dr. Monster Marina DO; Dr. Cheryl Gandhi MD; Dr. Bull Sanchez MD; Dr. Dae Das MD; Dr. Tarik Wilkinson MD; Dr. Zach Cartagena MD; Dr. Melody Mar MD; Emily Wilson DO; Modesto Abarca MD~ Signed [facility] Work Phone: 1(105) 641-767403-11-2024 Consult note Author Ventura Godoy [facility] October 23, 2023 2:59pm Note Date/Time October 23, 2023 2:3 2pm [facility] Medical Records Department [address] [place] [address] Consultation 10/23/23 1426 MR#: [id number] Acct: [id number] Name: JARET BATES Rep #:[id number] : 1955 68 From: Ventura Fournier PCP: Dr. Marshall Bear MD Status:ADM [facility] Consult Date of Consult: 10/23/23 Reason for Consult Mr. Bates is seen in consultation at the request of Dr. Figueroa. Mr. Bates has had recurrent fevers of late. He is also had some night sweats. I performed a lumbar laminectomy discectomy of the L4-5 level on July 25, 2023. For the first few days after surgery he did well with complete relief of his leg pain. He gradually began having more pain in his leg over time. I saw him on 06 September and because of his weight loss and loss in appetite I began getting suspicious that there was more going on than just the degeneration in his back. On that day ordered an MRI scan of the lumbar spine with and without contrast. It was turned down by [employer] and it was specifically turned down by Dr. Vipul Estrella. 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 Request of the MRI was turned down for the usual reasons that these companies use such as not enough information, failure of 6 weeks of conservative management, and the records do not show results of prior imaging,etc. Apparently Dr. Estrella failed to account for the fact that Mr. Girard had 2 surgeries before this including my surgery of July 20, 2023, and those records are in possession of the insurance company. Anytime the disc is violated and there is an increase of pain over time the possibility of discitis is there. This physician and his company, [employer], failed to consider that possibility and turned the MRI scan down. The MRI scan finally was done this morning and he required hospitalization to get it done. On examination it is noted that he has some mild wasting of the left quad that he has had for some time. He has decreased patellar reflexes bilaterally but hedid have +1 Achilles reflexes bilaterally. He does not have any nuchal signs. He has no long tract signs. Clonus is absent Babinski's are both downgoing. I reviewed the MRI scan that was done this morning. He has some liquefaction ofthe L4-5 disc suggesting the possibility of discitis. The surgery that I performed did include exposure of the disc itself at that level. This suggest that the disc base was probably contaminated on July 20, 2023. Had the MRI scan been approved that I ordered on September 06 we probably would have discovered these findings 5 weeks earlier. This is a perfect illustration of why third-constitution party pre-CERT companies should be outlawed. Their decisions are often tothe detriment of the patient. The insurance companies use them so that they themselves are not blamed for mistakes and injury to the patients. I discussed the case by telephone with Dr. Figueroa. He has already asked Dr. Wilkinson in infectious disease specialist to see the patient. IV antibiotics have already been started. I suspect Dr. Wilkinson will treat the infection empirically. I suspect that it is a low virulent organisms such as perhaps Staph epidermidis as it has taken this long to become apparent. Thank you for this consultation. I will follow the patient as long as he is in the hospital. 10/23/23 7943 <Electronically signed by Ventura Godoy DO> Cosigner Signature (if applicable): CC: Arabella Walter; Saida Cantu; Tray Carreon; Susie Augustin MD; Jessica Ang MD; Claudy Tripathi MD; Dr. Meliton Coronel MD; Dr. Sara Reaves MD; Dr. Ben Velasco MD; Dr. Ivonne Holloway MD; Dr. Ham Giron MD; Dr. Adelso Whitehead MD;Dr. Marshall Bear MD; Dr. Ventura Godoy DO; Dr. Monster Marina DO; Dr. Cheryl Gandhi MD; Dr. Bull Sanchez MD; Dr. Dae Das MD; Dr. Tarik Wilkinson MD; Dr. Zach Cartagena MD; Dr. Melody Mar MD; Emily Wilson DO; Modesto Abarca MD~ Signed [facility] Work Phone: 1(450) 651-133103-11-2024 Progress note Author Ochoa Figueroa [facility] October 23, 2023 1:57pm Note Date/Time October 23, 2023 1:5 7pm [facility] Medical Records Department [address] [place] [address] Progress Note - Hospitalist 10/23/23 1348 MR#: [id number] Acct: [id number] Name: JARET BATES Rep #:[id number] : 1955 68 From: Ochoa Mcfarlane PCP: Dr. Marshall Bear MD Status:ADM IN Location: [place] [address] Reason for Visit Reason for Visit: Diagnoses Cerebral infarction, unspecified (10/21/23) Objective Data Objective Data Vital Signs: Vital Signs Temp Pulse Resp BP Pulse Ox O2 Del Method 97.5 F L 96 16 129/86 H 98 Room Air 10/23/23 08:45 10/23/23 08:45 10/23/23 08:45 10/23/23 08:45 10/23/23 08:45 10/23/23 09:44 Oxygen Delivery Method Room Air Weight: 187 lb 6.287 oz Body Mass Index (BMI) 26.9 Intake & Output: Intake and Output for Last 24 Hours 10/21/23 10/22/23 10/23/23 22:59 23:59 23:59 Intake Total 2173.33 / 2173.33 Output Total Balance 2173.33 / 2173.33 Medical Nutrition Assessment Dietitian: Malnutrition Criteria Met Start: 10/22/23 17:13 Freq: Status: Active Protocol: Document 10/22/23 17:14 RMA (Rec: 10/22/23 17:14 RMA [id number]) Nutrition Malnutrition Evidence of Malnutrition Exists Yes Malnutrition (severe): Chronic Evidenced By Suboptimal Energy Intake ( Severe),Weight Loss (Severe) Clinical Problem Chronic Disease or Condition Related Malnutrition Etiology severe protein-calorie malnutrition in the context of chronic disease related to inadequate oral/ennergy intake Signs/Symptoms as evidenced by ~6-7% unintentional weight loss x past 1 month and PO meeting less than 50% estimated nutrition needs x 1-2 months Status Active Problem Recommendation Dietitian Recommendations/Changes Will adjust diet to 2000 calorie/consistent carbohydrate; cardiac. Will add 120ml glucerna shake 4 times per day w/ medpass. Will add 240mL glucerna shake w/ breakfast tray. Adjust ONS as need to optimize PO and prevent further weight loss. Lab / Micro Data 10/23/23 05:55 10/23/23 05:55 Labs: Laboratory Results - last 24 hr 10/22/23 17:34: POC Glucose 139 H 10/22/23 20:46: POC Glucose 116 H 10/23/23 05:55: WBC 7.7, RBC 3.92 L, Hgb 11.2 L, Hct 33.3 L, MCV 84.9, MCH 28.6,MCHC 33.6, RDW Std Deviation 41.1, RDW Coeff of Frankie 13.3, Plt Count 256, MPV 8.1, Immature Gran % (Auto) 0.400, Neut % (Auto) 76.1 H, Lymph % (Auto) 14.6 L, [place] % (Auto) 8.2, Eos % (Auto) 0.4, Baso % (Auto) 0.3, Absolute Neuts (auto) 5.9, Absolute Lymphs (auto) 1.13, Nucleated RBC % 0, Sodium 132 L, Potassium 3.8, Chloride 102, Carbon Dioxide 23.0, Anion Gap 7, BUN 20 H, Creatinine 0.67 L, Estim Creat Clear Calc 88.72, Est GFR (MDRD) Af Amer 150, Est GFR (MDRD) Non-Af 124, BUN/Creatinine Ratio 29.8 H, Glucose 107 H, Calcium 8.0 L, Total Bilirubin 1.30 H, AST 17, ALT 20, Alkaline Phosphatase 69, Total Protein 5.8 L, Albumin 2.8 L, Globulin 3.0, Albumin/Globulin Ratio 0.9, Vitamin B12 177 L, TSH 2.40 03/11/24 06:38: POC Glucose 104 Micro: Microbiology 10/22/23 01:13 Mucosa - Nasopharyngeal Coronavirus COVID-19 PCR - Final 10/22/23 01:13 Mucosa - Nasopharyngeal Respiratory Panel (PCR) - Final Radiography Diagnostic Testing: Radiology Impression Carotid Duplex 10/21/23 20:32 Interpretation Summary Mild (<50%) stenosis right extracranial internal carotid. Normal left extracranial internal carotid. Patent and antegrade vertebrals bilaterally. Ordering Physician: Sara Reaves Referring Physician: Marshall Bear M.D. Performed By: Rena Rodríguez, T Chest X-Ray 10/23/23 05:40 IMPRESSION: No evidence of acute cardiopulmonary disease. Electronically Signed: Julio Soto DO at 6:54 EDT , Brain MRI 10/23/23 09:23 IMPRESSION: 1. Involutional and chronic ischemic changes of the brain, as described above. 2. No intravenous contrast was administered, therefore the meninges cannot be evaluated on this study. No obvious pachymeningeal hyperintensity or thickening is seen. Electronically Signed: Arnav Nobles MD at 11:55 EDT , Lumbar Spine MRI 10/23/23 09:23 IMPRESSION: 1. Newly developed moderate marrow edema throughout the L4 and L5 vertebral bodies which was not present on May 27, 2023 study. Also interval development of mild liquefaction within the disc at L4-L5 and mild cortical erosion of the endplates, all findings consistent with vertebral osteomyelitis and discitis. The disc spaces also narrowed compared to the prior MRI as well as the prior CT of the lumbar spine dated August 14, 2023 and is moderately narrowed compared to mild to moderate narrowing on those studies. There is no demonstrated paraspinal abscess or edema or swelling. 2. No visualized epidural fluid collections 3. Multilevel degenerative changes, as described above. Electronically Signed: Arnav Nobles MD at 11:52 EDT , ADDENDUM: 10/23/23 1318 IMPRESSION: 1. Newly developed moderate marrow edema throughout the L4 and L5 vertebral bodies which was not present on May 27, 2023 study. Also interval development of mild liquefaction within the disc at L4-L5 and mild cortical erosion of the endplates, all findings consistent with vertebral osteomyelitis and discitis. The disc spaces also narrowed compared to the prior MRI as well as the prior CT of the lumbar spine dated August 14, 2023 and is moderately narrowed compared to mild to moderate narrowing on those studies. There is no demonstrated paraspinal abscess or edema or swelling. 2. No visualized epidural fluid collections 3. Multilevel degenerative changes, as described above. N.B. : Araceli Love RN, confirmed on 10/23/2023 13:11:10 (ET) that the healthcare facility has received the radiology report. Electronically Signed: Arnav Nobles MD at 11:52 EDT , Physical Exam Narrative Seen and examined. Patient had high-grade fever Tmax 102.6 Fahrenheit 100.1 Fahrenheit with associated sinus tachycardia. Serum sodium 131. Potassium 3.2. Patient was admitted with altered mental status, confusion and hard time expressing himself. General: Alert, Oriented x3, Cooperative and severe back pain and stiffness HEENT: Atraumatic, PERRLA, EOMI, Normocephalic Oral: No Gingival or Mucosal Lesions/ Ulcerations Neck: Supple, No JVD, Negative Carotid Bruits Chest wall/Lungs: Air entry diminished in bilateral lung bases. No crepitation/rhonchi Cardiovascular: Regular rate, Regular Rhythm, Normal S1, Normal S2, No M/G/R Abdomen: Bowel Sounds Present, Soft, Non Tender, Non-Distended : No dysuria. No renal angle tenderness. No suprapubic tenderness. Extremities: No edema, Capillary Refill Less than 3 Seconds Skin: No rashes, No breakdown Musculoskeletal: No Tenderness to Palpation of Joints or Extremities. Spine: Postop surgical scar well-healed. Tenderness present all around lumbar and paraspinal area. Muscle stiffness. ROM severely limited and painful even with slightest motion Neurological: Cranial nerves II-XII grossly intact, DTR 2+/4. No neck rigidity.Brudzinski sign positive of both legs on extension of calf muscle. Psych/Mental Status: Flat affect. Assessment & Plan Assessment/Plan (1) Acute CVA (cerebrovascular accident): PLAN: Plan The patient is a 68 y/o M is being admitted for intermittent fever after surgeryalong with confusion lethargy/altered mental status, severe back pain and expressive aphasia. Expressive aphasiadue to lethargy. #1. Acute encephalopathy/altered mental status/expressive aphasia probably related to pain medication: Patient was found very lethargic and was on oxycodone 7.5 mg 3 times daily as needed. Patient currently is awake and alert and in severe back pain with stiffness therefore oxycodone resumed. Patient wasevaluated by neurologist and does not think patient to clinical he had a stroke but probably postop infection/complication as mentioned below. CT head and CTA head and neck does not show acute abnormality or LVO. Discontinue Plavix. 10/22: Patient did not had any fever. Tmax 99.3 Fahrenheit. Acute encephalopathy resolved. 2. Acute on chronic back pain with radiculopathy due to recurrent disc herniation status post repeat laminectomy L4-5 on the left with discectomy and decompression of L5 nerve root with with vertebral osteomyelitis and discitis ofL4-L5: Patient had back surgery as mentioned above on 07/18/2023. As per heis having on and off fever and chills after surgery. Initially he had enuresis/bedwetting and then urinary incontinence since then. Patient has very restricted mobility due to back stiffness and pain and on oxycodone 7.5 mg 3 times daily as needed. Patient put back on oxycodone 7.5 mg 3 times daily with holding parameters. MRIlumbar spine with and without contrast and MRI brain with and without contrast on. But lumbar spine takes the priority. Will hold for spinal tap as patient might have lumbar abscess or infection. Discussed with the [facility] neurologist. Patient on IV vancomycin, ampicillin and ceftriaxone, meningitis regimen. Orthospine and ID are consulted. I talked to Dr. Godoy, spine surgeon. PT andOT ordered. TSH normal. 10/22: Patient still has severe back pain even on oxycodone 7.5 mg 3 times daily and Toradol 15 mg every 6 hourly as needed. Patient not move bowel for last 2 to 3 days therefore on Senna-S 2 tablet twice daily, MiraLAX and Dulcolax oral ordered. Oxycodone increased to 10 mg every 6 hourly as needed. MRI lumbar spine and brain with and without contrast were ordered but patient could only have noncontrast study because of severe pain. Discussed with the spine surgeonand does not think any paraspinal abscess but will wait for official report. Lumbar spine reported newly developed moderate marrow edema throughout L4-L5 vertebral bodies with mild liquefaction within disc of L4-L5 and mild cortical erosions of the endplates finding consistent with vertebral osteomyelitis and discitis. Disc spaces also narrowed. No demonstrated paraspinal abscess or anymore swelling. No visualized epidural fluid collection. Patient on IV antibiotics. ID is consulted. MRI brain shows involutional chronic changes butminges could not be evaluated because of no intravenous contrast was administered for reasons mentioned above. 3. Hypotonic isovolemic hyponatremia: Even though patient on IV fluid normal saline, serum sodium did not increase it remains 131. Will discontinue IV fluid. Patient might have SIADH after neurosurgery 10/22: Serum sodium is similar for last 3 days. 4. Hypokalemia: Admission K+ 3.2, magnesium level normal. Potassium replaced 10/20: Hypokalemia corrected. 5. Chronic asthma: Per current list not on inhalers,PRN albuterol, HOB, IS parameters. 6. CAD: Status post CABG x 3, continue aspirin, changed to high-dose statin. #7. Diabetes mellitus type II with chronic neuropathy: Hold oral home regimen, hemoglobin A1c 6.4, glucose controlled. Accu-Chek ACH cover with Humalog sliding scale. Continue patient home chronic gabapentin regimen. #8. Hyperlipidemia: Changing to high-dose statin regimen. LDL 123. HDL normal. #9. GERD: Will continue patient home PPI and sucralfate regimen. #10. BPH: We will continue patient on Flomax regimen. #11. Tobacco Abuse: Encouraged to tobacco cessation, inpatient consultation perRT, NR if desired. Patient usually uses 1 can every 3 to 4 days. #12. Restless leg syndrome: On a regimen, if necessary may add Requip #13. DVT prophylaxis: Lovenox. #14. CODE status: Patient HCPOA is his was present and living will is currently in place. Discussed CODE status at length including difference betweenFULL code, DNR-CCA and DNR-CC status. Following discussions about the differences in these status, requested Full Code status. Total time of the visit including total time spent in counseling or coordinationof care, (more than 50% of the total time, spent in obtaining medical information from nurses and other ancillary care providers,explaining to the patient about labs, imaging, diagnosis and management of active complex medical conditions), complete history taking from patient's , discussion with [facility] neurologist and orthospine surgeon Dr. Walt Whitehead, review of labs and imagingis 40 minutes. Microbiology Past 72 Hours 10/22/23 01:13 Mucosa - Nasopharyngeal Coronavirus COVID-19 PCR - Final 10/22/23 01:13 Mucosa - Nasopharyngeal Respiratory Panel (PCR) - Final Laboratory Results 10/22/23 17:34: POC Glucose 139 H 10/22/23 20:46: POC Glucose 116 H 10/23/23 05:55: WBC 7.7, RBC 3.92 L, Hgb 11.2 L, Hct 33.3 L, MCV 84.9, MCH 28.6,MCHC 33.6, RDW Std Deviation 41.1, RDW Coeff of Frankie 13.3, Plt Count 256, MPV 8.1, Immature Gran % (Auto) 0.400, Neut % (Auto) 76.1 H, Lymph % (Auto) 14.6 L, [place] % (Auto) 8.2, Eos % (Auto) 0.4, Baso % (Auto) 0.3, Absolute Neuts (auto) 5.9, Absolute Lymphs (auto) 1.13, Nucleated RBC % 0, Sodium 132 L, Potassium 3.8, Chloride 102, Carbon Dioxide 23.0, Anion Gap 7, BUN 20 H, Creatinine 0.67 L, Estim Creat Clear Calc 88.72, Est GFR (MDRD) Af Amer 150, Est GFR (MDRD) Non-Af 124, BUN/Creatinine Ratio 29.8 H, Glucose 107 H, Calcium 8.0 L, Total Bilirubin 1.30 H, AST 17, ALT 20, Alkaline Phosphatase 69, Total Protein 5.8 L, Albumin 2.8 L, Globulin 3.0, Albumin/Globulin Ratio 0.9, Vitamin B12 177 L, TSH 2.40 10/23/23 06:38: POC Glucose 104 Clinical Impression(s) from Imaging Studies Brain CT 10/21/23 17:19 IMPRESSION: Chronic age related changes and atrophy. No acute abnormality or significant change. Electronically Signed: Toribio Giraldo MD at 17:34 EST Reading Location ID and State: [facility] / [place] , Service support , ADDENDUM: 10/21/23 1746 IMPRESSION: Chronic age related changes and atrophy. No acute abnormality or significant change. N.B. : The above Results were Read Back by Toribio Giraldo MD to Kayli Granados DO, and understanding confirmed on 10/21/2023 17:39:16 (ET). Electronically Signed: Toribio Giraldo MD at 17:34 EST Reading Location ID and State: [facility] / [place] , Service support , Head/Neck CTA 10/21/23 17:19 IMPRESSION: No acute abnormality. No large vessel occlusions. 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 Electronically Signed: Toribio Giraldo MD at 17:49 EST , ADDENDUM: 10/21/23 1758 IMPRESSION: No acute abnormality. No large vessel occlusions. 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 N.B. : The above Results were Read Back by Toribio Giraldo MD to Kayli Granados DO, and understanding confirmed on 10/21/2023 17:51:20 (ET). Electronically Signed: Toribio Giraldo MD at 17:49 EST , Chest X-Ray 10/21/23 18:05 IMPRESSION: No definite acute or significant abnormality seen. Electronically Signed: Toribio Giraldo MD at 19:00 EST , Charges/Coding Visit Charges Inpatient E&M: 84715 Subs Hosp L3 10/23/23 1357 <Electronically signed by Ochoa Figueroa MD> Cosigner Signature (if applicable): CC: ~ Signed [facility] Work Phone: [phone]) 961-456703-10-2024 Progress note Author [facility] October 22, 2023 2:14pm Note Date/Time October 22, 2023 10: 49am [facility] Medical Records Department [address] [place] [id number] Progress Note - Hospitalist 10/22/23 1047 MR#: [id number] Acct: [id number] Name: JARET BATES Rep #:[id number] : 1955 68 From: Ochoa Mcfarlane PCP: Dr. Marshall Bear MD Status:ADM IN Location: [place] [id number] Reason for Visit Reason for Visit: Diagnoses Cerebral infarction, unspecified (10/21/23) Objective Data Objective Data Vital Signs: Vital Signs Temp Pulse Resp BP Pulse Ox O2 Del Method 100.1 F H 110 H 16 124/73 H 97 Room Air 10/22/23 08:30 10/22/23 08:30 10/22/23 08:30 10/22/23 08:30 10/22/23 08:30 10/22/23 10:00 Oxygen Delivery Method Room Air Weight: 181 lb 3.52 oz Body Mass Index (BMI) 25.9 Intake & Output: Intake and Output for Last 24 Hours 10/20/23 10/21/23 10/23/23 23:59 23:59 00:59 Intake Total 800 / 800 1055.67 / 1055.67 Output Total 250 / 250 Balance 800 / 800 805.67 / 805.67 Lab / Micro Data 10/22/23 05:42 10/22/23 05:42 Labs: Laboratory Results - last 24 hr 10/21/23 16:52: WBC 10.3, RBC 4.60, Hgb 13.1, Hct 39.1 L, MCV 85.0, MCH 28.5, MCHC 33.5, RDW Std Deviation 41.1, RDW Coeff of Frankie 13.3, Plt Count 343, MPV 8.1, Immature Gran % (Auto) 0.400, Neut % (Auto) 69.6, Lymph % (Auto) 20.2, [place]% (Auto) 9.6, Eos % (Auto) 0.0, Baso % (Auto) 0.2, Absolute Neuts (auto) 7.2, Absolute Lymphs (auto) 2.09, Nucleated RBC % 0, PT 13.7, INR 1.1, APTT 26.6, Sodium 131 L, Potassium 3.2 L, Chloride 97 L, Carbon Dioxide 26.0, Anion Gap 8, BUN 24 H, Creatinine 0.84, Estim Creat Clear Calc 84.49, Est GFR (MDRD) Af Amer 116, Est GFR (MDRD) Non-Af 96, BUN/Creatinine Ratio 28.5 H, Glucose 131 H, Calcium 9.5, Magnesium 1.4 L, Troponin I High Sens 28 10/21/23 18:25: Urine Color Yellow, Urine Clarity Clear, Urine pH 7.0, Ur Specific [place] 1.010, Urine Protein 30 H, Urine Glucose (UA) 50 H, Urine Ketones 15 H, Urine Occult Blood 25 H, Urine Nitrite Negative, Urine Bilirubin Negative,Urine Urobilinogen Normal, Ur Leukocyte Esterase 25 H, Urine RBC 0 SEEN, Urine WBC 0-5 SEEN, Ur Squamous Epith Cells 0 SEEN, Urine Bacteria 0 SEEN, Urine Mucus0 SEEN 10/21/23 18:27: Ammonia < 10.0 L 10/21/23 22:39: POC Glucose 132 H 10/22/23 05:42: WBC 10.5, RBC 4.26 L, Hgb 12.2 L, Hct 36.1 L, MCV 84.7, MCH 28.6, MCHC 33.8, RDW Std Deviation 40.6, RDW Coeff of Frankie 13.2, Plt Count 293, MPV 8.2, Immature Gran % (Auto) 0.600, Neut % (Auto) 70.7 H, Lymph % (Auto) 18.4L, [place] % (Auto) 10.0, Eos % (Auto) 0.0, Baso % (Auto) 0.3, Absolute Neuts (auto) 7.4, Absolute Lymphs (auto) 1.92, Nucleated RBC % 0, Sodium 131 L, Potassium 3.3 L, Chloride 98, Carbon Dioxide 24.0, Anion Gap 9, BUN 28 H, Creatinine 0.86, Estim Creat Clear Calc 82.53, Est GFR (MDRD) Af Amer 112, Est GFR (MDRD) Non-Af 93, BUN/Creatinine Ratio 32.4 H, Glucose 125 H, Hemoglobin A1c6.4 H, Calcium 9.2, Total Bilirubin 2.10 H, AST 22, ALT 22, Alkaline [id number], Total Protein 6.7, Albumin 3.2, Globulin 3.5, Albumin/Globulin Ratio 0.9, Triglycerides 59, Cholesterol 179, LDL Cholesterol 123, VLDL Cholesterol 12, HDLCholesterol 44, Procalcitonin < 0.04, TSH 1.11 10/22/23 05:57: Magnesium 2.7 H 10/22/23 06:36: POC Glucose 97 Micro: Microbiology 10/22/23 01:13 Mucosa - Nasopharyngeal Coronavirus COVID-19 PCR - Final 10/22/23 01:13 Mucosa - Nasopharyngeal Respiratory Panel (PCR) - Final Radiography Diagnostic Testing: Radiology Impression Brain CT 10/21/23 17:19 IMPRESSION: Chronic age related changes and atrophy. No acute abnormality or significant change. Head/Neck CTA 10/21/23 17:19 IMPRESSION: No acute abnormality. No large vessel occlusions. 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 Chest X-Ray 10/21/23 18:05 IMPRESSION: No definite acute or significant abnormality seen. Physical Exam Narrative Seen and examined. Patient had high-grade fever Tmax 102.6 Fahrenheit 100.1 Fahrenheit with associated sinus tachycardia. Serum sodium 131. Potassium 3.2. Patient was admitted with altered mental status, confusion and hard time expressing himself. General: Alert, Oriented x3, Cooperative and severe back pain and stiffness HEENT: Atraumatic, PERRLA, EOMI, Normocephalic Oral: No Gingival or Mucosal Lesions/ Ulcerations Neck: Supple, No JVD, Negative Carotid Bruits Chest wall/Lungs: Air entry diminished in bilateral lung bases. No crepitation/rhonchi Cardiovascular: Regular rate, Regular Rhythm, Normal S1, Normal S2, No M/G/R Abdomen: Bowel Sounds Present, Soft, Non Tender, Non-Distended : No dysuria. No renal angle tenderness. No suprapubic tenderness. Extremities: No edema, Capillary Refill Less than 3 Seconds Skin: No rashes, No breakdown Musculoskeletal: No Tenderness to Palpation of Joints or Extremities. Spine: Postop surgical scar well-healed. Tenderness present all around lumbar and paraspinal area. Muscle stiffness. ROM severely limited and painful even with slightest motion Neurological: Cranial nerves II-XII grossly intact, DTR 2+/4. No neck rigidity.Brudzinski sign positive of both legs on extension of calf muscle. Psych/Mental Status: Flat affect. Assessment & Plan Assessment/Plan (1) Acute CVA (cerebrovascular accident): PLAN: Plan The patient is a 68 y/o M is being admitted for intermittent fever after surgeryalong with confusion lethargy/altered mental status, severe back pain and expressive aphasia. Expressive aphasiadue to lethargy #1. Acute encephalopathy/altered mental status/expressive aphasia probably related to pain medication: Patient was found very lethargic and was on oxycodone 7.5 mg 3 times daily as needed. Patient currently is awake and alert and in severe back pain with stiffness therefore oxycodone resumed. Patient wasevaluated by neurologist and does not think patient to clinical he had a stroke but probably postop infection/complication as mentioned below. CT head and CTA head and neck does not show acute abnormality or LVO. Discontinue Plavix. 2. Acute on chronic back pain with radiculopathy due to recurrent disc herniation status post repeat laminectomy L4-5 on the left with discectomy and decompression of L5 nerve root with postop fever, severe back stiffness and urinary incontinence, suspected lumbar abscess/collection, postop meningitis: Patient had back surgery as mentioned above on 07/18/2023. As per he is having on and off fever and chills after surgery. Initially he had enuresis/bedwetting and then urinary incontinence since then. Patient has very restricted mobility due to back stiffness and pain and on oxycodone 7.5 mg 3 times daily as needed. Patient put back on oxycodone 7.5 mg 3 times daily with holding parameters. MRIlumbar spine with and without contrast and MRI brain with and without contrast on. But lumbar spine takes the priority. Will hold for spinal tap as patient might have lumbar abscess or infection. Discussed with the [facility] neurologist. Patient on IV vancomycin, ampicillin and ceftriaxone, meningitis regimen. Orthospine and ID are consulted. I talked to Dr. Godoy, spine surgeon. PT andOT ordered. TSH normal. 3. Hypotonic isovolemic hyponatremia: Even though patient on IV fluid normal saline, serum sodium did not increase it remains 131. Will discontinue IV fluid. Patient might have SIADH after neurosurgery 4. Hypokalemia: Admission K+ 3.2, magnesium level normal. Potassium replaced 5. Chronic asthma: Per current list not on inhalers,PRN albuterol, HOB, IS parameters. 6. CAD: Status post CABG x 3, continue aspirin, changed to high-dose statin. #7. Diabetes mellitus type II with chronic neuropathy: Hold oral home regimen, hemoglobin A1c 6.4, glucose controlled. Accu-Chek ACH cover with Humalog sliding scale. Continue patient home chronic gabapentin regimen. #8. Hyperlipidemia: Changing to high-dose statin regimen. LDL 123. HDL normal. #9. GERD: Will continue patient home PPI and sucralfate regimen. #10. BPH: We will continue patient on Flomax regimen. #11. Tobacco Abuse: Encouraged to tobacco cessation, inpatient consultation perRT, NR if desired. Patient usually uses 1 can every 3 to 4 days. #12. Restless leg syndrome: On a regimen, if necessary may add Requip #13. DVT prophylaxis: Lovenox. #14. CODE status: Patient ALLISON is his was present and living will is currently in place. Discussed CODE status at length including difference betweenFULL code, DNR-CCA and DNR-CC status. Following discussions about the differences in these status, requested Full Code status. Microbiology Past 72 Hours 10/22/23 01:13 Mucosa - Nasopharyngeal Coronavirus COVID-19 PCR - Final 10/22/23 01:13 Mucosa - Nasopharyngeal Respiratory Panel (PCR) - Final Laboratory Results 10/21/23 16:52: WBC 10.3, RBC 4.60, Hgb 13.1, Hct 39.1 L, MCV 85.0, MCH 28.5, MCHC 33.5, RDW Std Deviation 41.1, RDW Coeff of Frankie 13.3, Plt Count 343, MPV 8.1, Immature Gran % (Auto) 0.400, Neut % (Auto) 69.6, Lymph % (Auto) 20.2, [place]% (Auto) 9.6, Eos % (Auto) 0.0, Baso % (Auto) 0.2, Absolute Neuts (auto) 7.2, Absolute Lymphs (auto) 2.09, Nucleated RBC % 0, PT 13.7, INR 1.1, APTT 26.6, Sodium 131 L, Potassium 3.2 L, Chloride 97 L, Carbon Dioxide 26.0, Anion Gap 8, BUN 24 H, Creatinine 0.84, Estim Creat Clear Calc 84.49, Est GFR (MDRD) Af Amer 116, Est GFR (MDRD) Non-Af 96, BUN/Creatinine Ratio 28.5 H, Glucose 131 H, Calcium 9.5, Magnesium 1.4 L, Troponin I High Sens 28 10/21/23 18:25: Urine Color Yellow, Urine Clarity Clear, Urine pH 7.0, Ur Specific [place] 1.010, Urine Protein 30 H, Urine Glucose (UA) 50 H, Urine Ketones 15 H, Urine Occult Blood 25 H, Urine Nitrite Negative, Urine Bilirubin Negative, Urine Urobilinogen Normal, Ur Leukocyte Esterase 25 H, Urine RBC 0 SEEN, Urine WBC 0-5 SEEN, Ur Squamous Epith Cells 0 SEEN, Urine Bacteria 0 SEEN,Urine Mucus 0 SEEN 10/21/23 18:27: Ammonia < 10.0 L 10/21/23 22:39: POC Glucose 132 H 10/22/23 05:42: WBC 10.5, RBC 4.26 L, Hgb 12.2 L, Hct 36.1 L, MCV 84.7, MCH 28.6, MCHC 33.8, RDW Std Deviation 40.6, RDW Coeff of Frankie 13.2, Plt Count 293, MPV 8.2, Immature Gran % (Auto) 0.600, Neut % (Auto) 70.7 H, Lymph % (Auto) 18.4L, [place] % (Auto) 10.0, Eos % (Auto) 0.0, Baso % (Auto) 0.3, Absolute Neuts (auto) 7.4, Absolute Lymphs (auto) 1.92, Nucleated RBC % 0 , Sodium 131 L, Potassium 3.3 L, Chloride 98, Carbon Dioxide 24.0, Anion Gap 9, BUN 28 H, Creatinine 0.86, Estim Creat Clear Calc 82.53, Est GFR (MDRD) Af Amer 112, Est GFR (MDRD) Non-Af 93, BUN/Creatinine Ratio 32.4 H, Glucose 125 H, Hemoglobin A1c 6.4 H, Calcium 9.2, Total Bilirubin 2.10 H, AST 22, ALT 22, Alkaline Phosphatase 76, Total Protein 6.7, Albumin 3.2, Globulin 3.5, Albumin/Globulin Ratio 0.9, Triglycerides 59, Cholesterol 179, LDL Cholesterol 123, VLDL Cholesterol 12, HDL Cholesterol 44, Procalcitonin < 0.04, TSH 1.11 10/22/23 05:57: Magnesium 2.7 H 10/22/23 06:36: POC Glucose 97 10/22/23 11:52: POC Glucose 145 H Clinical Impression(s) from Imaging Studies Brain CT 10/21/23 17:19 IMPRESSION: Chronic age related changes and atrophy. No acute abnormality or significant change. Electronically Signed: Toribio Giraldo MD at 17:34 EST , ADDENDUM: 10/21/23 8440 IMPRESSION: Chronic age related changes and atrophy. No acute abnormality or significant change. N.B. : The above Results were Read Back by Toribio Giraldo MD to Kayli Granados DO, and understanding confirmed on 10/21/2023 17:39:16 (ET). Electronically Signed: Toribio Giraldo MD at 17:34 EST Reading Location ID and State: [facility] / [place] , Service support , Head/Neck CTA 10/21/23 17:19 IMPRESSION: No acute abnormality. No large vessel occlusions. 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 Electronically Signed: Toribio Giraldo MD at 17:49 EST , ADDENDUM: 10/21/23 1758 IMPRESSION: No acute abnormality. No large vessel occlusions. 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 N.B. : The above Results were Read Back by Toribio Giraldo MD to Kayli Granados DO, and understanding confirmed on 10/21/2023 17:51:20 (ET). Electronically Signed: Toribio Giraldo MD at 17:49 EST Reading Location ID and State: [facility] / [place] , Service support , Chest X-Ray 10/21/23 18:05 IMPRESSION: No definite acute or significant abnormality seen. Electronically Signed: Toribio Giraldo MD at 19:00 EST Reading Location ID and State: [facility] / [place] , Service support , Charges/Coding Addendum Addendum: Total time of the visit including total time spent in counseling or coordinationof care, (more than 50% of the total time, spent in obtaining medical information from nurses and other ancillary care providers,explaining to the patient about labs, imaging, diagnosis and management of active complex medical conditions), complete history taking from patient's , discussion with [facility] neurologist and orthospine surgeon Dr. Walt Whitehead, review of labs and imagingis 40 minutes. Visit Charges Inpatient E&M: 62066 Subs Hosp L3 10/22/23 1414 <Electronically signed by Ochoa Figueroa MD> Cosigner Signature (if applicable): CC: ~ Signed [facility] Work Phone: [phone]) [phone] Consult note Author Bull Sanchez [facility] October 22, 2023 1:48pm Note Date/Time October 22, 2023 1:3 6pm [facility] Medical Records Department [address] [place] [address] Consultation - Neurology 10/22/23 1329 MR#: [id number] Acct: [id number] Name: JARET BATES Rep #:[id number] : 1955 68 From: Bull Mcfarlane PCP: Dr. Marshall Bear MD Status:ADM IN Location: [place] [address] Assessment and Plan: Neuro Assessment/Plan Assessment Examination is currently consistent with a bi-hemispheric encephalopathy (aka delerium). No focal deficits currently. History and exam more consistent with a subacute process with fluctuating symptoms. Although he has risk factors for stroke, his presentation is more consistent with a toxic-metabolic encephalopathy. Given his fevers, recent back surgery, worsening back pain, I think a post-operative infection should be ruled out in addition to a thorough assessment for other sources of infection. I have a low suspicion for encephalitis at this time but if he were to develop new neurologic deficits or seizures, then would recommend adding IV acyclovir empirically. ? Plan -ASA 81 only for now. Please discontinue Plavix 75 as currently has a low suspicion for stroke -Please obtain an MRI of the lumbar spine with and without contrast. -Please obtain an MRI of the brain with and without contrast . -Recommend systemic evaluation for infections: blood cx/UA/CXR. May consider a lumbar puncture after MRI if no obvious source of infection and no evidence of lumbar/brain abscess or mass lesion. -Ensure adequate hydration. Please evaluate and treat for causes of toxic/metabolic encephalopathy (TSH, B12, give thiamine, CBC, CMP, NH4, infectious work up) -CTA head/neck showed no severe stenosis or LVO. No need for carotid US -LDL 123/ HbA1c 6.4 -Recommend continuation of empiric antibiotics for post op [employer] infection while awaiting imaging result. -recommend ID consultation and spine surgery team consultation -Would hold off on additional stroke work up unless MRI confirms a stroke. HPI Consult Data Date of Consult: 10/22/23 HPI Narrative HPI Narrative: 68 yo M w PMH asthma, CAD, BPH, RLS, tobacco abuse, back pain, T2DM presents with expressive difficulties over the past two days. The patient states he was in the bath tub and couldn?t get out of the bathtub 11am on Monday. states that he wasn?t answering questions at all. Couldn?t remember year, month, or day when the squad got there. He had speaking difficulties for atleast 12 hours per the and she still feels like he is not cognitively completely recovered although he can still speak. Presented to the ED yesterday. CTH showed evidence of chronic small vessel disease, no ICH oracute infarct changes. CTA showed no LVO or significant stenosis intra/extracranially. Was given DAPT and admitted for stroke evaluation. Has been having fevers overnight with a Tmax of 102.9. Today, feels like he is better today but still not back to normal states since on Monday he started acting strange when on the drive home he was not able to drive straight. He went to bed at 2pm that day.? Has been havingsevere back pain since surgery in July. Has lost significant weight with a poor appetite since the surgery. He has been requiring narcotics for pain and started a new muscle relaxer in the past month. ? states he has been havingintermittent fevers at home since surgery in July up to 101F. She states they have seen his back surgeon but the patient has not had any repeat imaging of his lower back since surgery. [facility] Medical History (Updated 10/21/23 @ 20:[address] Sara Reaves MD) Agent orange exposure Alcohol use Ambulates with cane Arthritis Arthropathy of cervical facet joint Asthma Atherosclerotic heart disease of [place] coronary artery without angina pectoris Back pain Bilirubinuria Cancer Cardiology follow-up encounter Cervical spondylosis Chondromalacia of both patellae Chondromalacia, left knee Chondromalacia, right knee Contact with or exposure to other viral diseases COVID-19 virus detected (11/19/20) Degeneration of cervical disc without myelopathy Degeneration of intervertebral disc of lumbosacral region Diabetes Fusion of spine, cervical region High cholesterol (~08/21/23) History of echocardiogram History of IBS History of pain when walking History of steroid therapy History of stress test Hyperlipemia Injury of head and neck Left knee DJD Nonrheumatic aortic (valve) stenosis with insufficiency Obesity Opioid dependence Prostate disease Radiculopathy of lumbosacral region Restless legs Right knee DJD Shortness of breath on exertion Smokeless tobacco use Spinal stenosis of lumbosacral region Spondylosis of lumbosacral region without myelopathy or radiculopathy Syncope Tear of medial meniscus of right knee Type 2 diabetes mellitus Wears hearing aid Home Medications aspirin 81 mg tablet,delayed release 81 mg PO DAILY HEART HEALTH 12/23/15 [History Last Taken 07/11/23] multivitamin 1 tab PO DAILY supplement 07/09/19 [History Last Taken 07/17/23 06:00] baclofen 10 mg tablet 10 mg PO TID PRN PRN Muscle Spasm 05/14/20 [History Last Taken 07/17/23 18:00] gabapentin 100 mg capsule 200 mg PO TID neuropathy 05/14/20 [History Last Taken 07/17/23 18:00] naproxen sodium 220 mg capsule (Aleve) 220 mg PO BID PRN Pain 02/04/22 [History Last Taken 07/17/23 18:00] albuterol sulfate 90 mcg/actuation aerosol inhaler 1 - 2 puff inhalation Q4H PRNPRN Wheezing #8.5 grams 04/21/22 [Rx Last Taken Unknown] handicap placard #1 ea 04/21/22 [Rx Last Taken Unknown] blood sugar diagnostic (FreeStyle Lite Strips) #100 ea 09/15/22 [Rx Last Taken Unknown] blood-glucose meter (FreeStyle Lite Meter kit) #1 ea 09/15/22 [Rx Last Taken Unknown] fluticasone propionate 50 mcg/actuation nasal spray,suspension 1 - 2 spray intranasal BID PRN allergies, congestion #16 grams 04/27/23 [Rx Last Taken 07/18/23 03:00] metformin 500 mg tablet 500 mg PO BID DIABETES #180 tabs 04/27/23 [Rx Last Taken 07/17/23 18:00] linaclotide 72 mcg capsule 72 mcg PO DAILY IBS #90 caps 06/27/23 [Rx Last Taken 07/17/23 06:00] acetaminophen 500 mg capsule 1,000 mg PO Q6H PRN pain 07/18/23 [History Last Taken 07/17/23 18:00] atorvastatin 40 mg tablet 40 mg PO QHS CHOLESTEROL #90 tabs 08/21/23 [Rx Last Taken Unknown] medical marijuana card PO unknown 08/21/23 [History Last Taken Unknown] omeprazole 40 mg capsule,delayed release 40 mg PO DAILY PRN Reflux #30 caps 08/21/23 [Rx Last Taken Unknown] trazodone 50 mg tablet 50 - 100 mg (1 - 2 x 50 mg) PO QHS sleep #90 tabs 08/21/23 [Rx Last Taken Unknown] sucralfate 1 gram tablet (Carafate) 1 g PO QACHS #30 tabs 09/27/23 [Rx Last Taken Unknown] metoclopramide HCl 10 mg tablet (Reglan) 10 mg PO Q8H PRN PRN nausea and vomiting #14 tabs 10/01/23 [Rx Last Taken Unknown] ondansetron 4 mg disintegrating tablet 4 mg PO Q6H PRN nausea and vomiting #20 tabs 10/03/23 [Rx Last Taken Unknown] oxycodone 5 mg tablet 7.5 mg PO TID PRN PRN pain 10/21/23 [History Last Taken Unknown] tamsulosin 0.4 mg capsule 0.4 mg PO QHS PRN urinary retention 10/21/23 [History Last Taken Unknown] Allergy/AdvReac Type Severity Reaction Status Date / Time adhesive tape Allergy Rash Verified 10/21/23 17:52 sertraline [From Zoloft] AdvReac Unknown Verified 10/21/23 17:52 Family History (Updated 10/21/23 @ 20:[address] Sara Reaves MD) Brother Heart disease Myocardial infarction 60's CAD (coronary artery disease) Father Myocardial infarction 65 CAD (coronary artery disease) Mother HLD (hyperlipidemia) when son was 16 following MVA, healthy aside HLD. Surgical History H/O cervical spine surgery (08/2020) H/O coronary artery bypass surgery (09/14/11) History of back surgery History of carpal tunnel release History of herniorrhaphy History of lateral meniscus repair of right knee (~2021) History of left heart catheterization (09/09/11) Hx laparoscopic cholecystectomy (~11/2022) Hx of bilateral cataract extraction Status post discectomy for herniated nucleus pulposus Social History (Updated 10/21/23 @ 20:[address] Sara Reaves MD) household members: spouse Smoking Status: Never smoker Smokeless tobacco user: chewing tobacco alcohol intake: current alcohol intake frequency: a few times a month substance use type: does not use caffeine: Yes Type: coffee Number of servings: 2 Vital Signs Vital Signs Vital Signs: 10/21/23 17:37 10/21/23 17:41 10/21/23 17:48 Temperature 98.0 F Temperature Source Oral Pulse Rate 82 82 Respiratory Rate 16 15 Respiratory Effort Respiratory Depth Respiratory Pattern Blood Pressure 136/82 H 136/73 H Blood Pressure Mean 100 94 Blood Pressure Source Blood Pressure Position Blood Pressure Location Pulse Ox 98 96 Oxygen Delivery Method Room Air Room Air Room Air 10/21/23 18:17 10/21/23 19:15 10/21/23 19:30 Temperature Temperature Source Pulse Rate 81 79 77 Respiratory Rate 17 16 19 H Respiratory Effort Respiratory Depth Respiratory Pattern Blood Pressure 131/86 H 123/73 H 135/75 H Blood Pressure Mean 101 89 95 Blood Pressure Source Blood Pressure Position Blood Pressure Location Pulse Ox 97 97 95 Oxygen Delivery Method Room Air Room Air Room Air 10/21/23 19:50 10/21/23 20:38 10/22/23 00:38 Temperature 97.6 F L 98.8 F 102.6 F H Temperature Source Oral Oral Pulse Rate 78 82 85 Respiratory Rate 21 H 20 H 20 H Respiratory Effort Respiratory Depth Respiratory Pattern Blood Pressure 135/75 H 121/72 H 134/53 H Blood Pressure Mean 95 88 80 Blood Pressure Source Monitor Monitor Blood Pressure Position Semi-Fowlers Left Lateral Blood Pressure Location Right Arm Right Arm Pulse Ox 95 97 98 Oxygen Delivery Method Room Air Room Air 10/22/23 03:24 10/22/23 01:05 10/22/23 04:38 Temperature 99.0 F 99.7 F H Temperature Source Oral Oral Pulse Rate 95 Respiratory Rate 18 Respiratory Effort Respiratory Depth Respiratory Pattern Blood Pressure 117/67 Blood Pressure Mean 83 Blood Pressure Source Monitor Blood Pressure Position Semi-Fowlers Blood Pressure Location Left Arm Pulse Ox 97 97 Oxygen Delivery Method Room Air Room Air 10/22/23 08:30 10/22/23 10:00 Temperature 100.1 F H Temperature Source Oral Pulse Rate 110 H Respiratory Rate 16 Respiratory Effort Normal Non-Labored Respiratory Depth Normal Respiratory Pattern Normal Blood Pressure 124/73 H Blood Pressure Mean 90 Blood Pressure Source Monitor Blood Pressure Position Semi-Fowlers Blood Pressure Location Left Arm Pulse Ox 97 Oxygen Delivery Method Room Air Room Air Weight Weight: 82.2 kg Body Mass Index (BMI) 25.9 EEG Results Procedure Details EEG Procedure Details: JARET BATES is a 68 year old M with a past medical history of , who presents for evaluation of Electroencephalogram on DATE at TIME NIHSS NIHSS Nursing Documentation NIHSS Nursing Documentation: NIHSS: Ischemic Stroke/TIA Start: 10/21/23 20:32 Text: For PCU Patients: NIH and Neuro Check every 4 Status: Active hours and PRN Freq: [id number] Protocol: Activity Type Activity Date Activity User E-sign Co-sign Detail Recorded Client Recorded Date Recorded By Document 10/22/23 12:30 Desktop 10/22/23 13:28 10/22/23 12:30 NIH Stroke Scale [NIHSS] A score of 0 is normal or asymptomatic . Total possible score is 42. Inpatient: RN or Physician to activate a stroke alert for onset of new stroke symptoms or with NIHSS increase >/= 3 points. Following change in neurological status, NIHSS will be performed per physician order or more frequently PRN. -1a. Level of Consciousness Alert; keenly responsive -1b. LOC Questions Answers BOTH questions correctly. -1c. LOC Commands Performs both tasks correctly . -2. Best Gaze Normal -3. Visual No visual loss -4. Facial Palsy Normal symmetrical movements -5a. Left Arm No drift; arm holds 90 (or 45 ) degrees for full 10 seconds -5b. Right Arm No drift; arm holds 90 (or 45 ) degrees for full 10 seconds -6a. Left Leg Drift; leg falls by the end of 5- seconds, but does not hit bed -6b. Right Leg Drift; leg falls by the end of 5- seconds, but does not hit bed -7. Limb Ataxia Absent -8. Sensory Normal; no sensory loss -9. Best Language Mild-to- moderate aphasia; -10. Dysarthria Mild-to- moderate dysarthria; -11. Extinction and Inattention No abnormality -Total 4 Query Text:A score of 0 is normal or asymptomatic. Total possible score is 42 . ED: Notify Physician for NIHSS increase by > / = 3 points. Inpatient: RN or Physician to activate a stroke alert for NIHSS increase of > / = 3 points. Coma Scale [Assess] -Eye Opening Spontaneous -Motor Obeys Commands -Verbal Confused [Total] -Coma Scale Total 14 Physical Exam Narrative Exam MS-awake, mildly drowsy but arouses with minor stim, oriented x 3, follows commands, mildly inattentive, bradyphrenic, able to name, able to repeat, able to read, fluent speech, no dysathria, no hemiattention CN-VFF,? no gaze dev, EOMI, no facial droop, nml facial sensation M-antigravity in all extremities without drift S-nml to LT in all extremities C- no appendicular dysmetria Lab / Micro Data 10/22/23 05:42 10/22/23 05:42 Labs: Laboratory Results - last 24 hr 10/21/23 16:52: WBC 10.3, RBC 4.60, Hgb 13.1, Hct 39.1 L, MCV 85.0, MCH 28.5, MCHC 33.5, RDW Std Deviation 41.1, RDW Coeff of Frankie 13.3, Plt Count 343, MPV 8.1, Immature Gran % (Auto) 0.400, Neut % (Auto) 69.6, Lymph % (Auto) 20.2, [place] % (Auto) 9.6, Eos % (Auto) 0.0, Baso % (Auto) 0.2, Absolute Neuts (auto) 7.2, Absolute Lymphs (auto) 2.09, Nucleated RBC % 0, PT 13.7, INR 1.1, APTT 26.6, Sodium 131 L, Potassium 3.2 L, Chloride 97 L, Carbon Dioxide 26.0, Anion Gap 8, BUN 24 H, Creatinine 0.84, Estim Creat Clear Calc 84.49, Est GFR (MDRD) Af Amer 116, Est GFR (MDRD) Non-Af 96, BUN/Creatinine Ratio 28.5 H, Glucose 131 H, Calcium 9.5, Magnesium 1.4 L, Troponin I High Sens 28 10/21/23 18:25: Urine Color Yellow, Urine Clarity Clear, Urine pH 7.0, Ur Specific [place] 1.010, Urine Protein 30 H, Urine Glucose (UA) 50 H, Urine Ketones 15 H, Urine Occult Blood 25 H, Urine Nitrite Negative, Urine Bilirubin Negative, Urine Urobilinogen Normal, Ur Leukocyte Esterase 25 H, Urine RBC 0 SEEN, Urine WBC 0-5 SEEN, Ur Squamous Epith Cells 0 SEEN, Urine Bacteria 0 SEEN, Urine Mucus 0 SEEN 10/21/23 18:27: Ammonia < 10.0 L 10/21/23 22:39: POC Glucose 132 H 10/22/23 05:42: WBC 10.5, RBC 4.26 L, Hgb 12.2 L, Hct 36.1 L, MCV 84.7, MCH 28.6, MCHC 33.8, RDW Std Deviation 40.6, RDW Coeff of Frankie 13.2, Plt Count 293, MPV 8.2, Immature Gran % (Auto) 0.600, Neut % (Auto) 70.7 H, Lymph % (Auto) 18.4 L, [place] % (Auto) 10.0, Eos % (Auto) 0.0, Baso % (Auto) 0.3, Absolute Neuts (auto) 7.4, Absolute Lymphs (auto) 1.92, Nucleated RBC % 0, Sodium 131 L, Potassium 3.3 L, Chloride 98, Carbon Dioxide 24.0, Anion Gap 9, BUN 28 H, Creatinine 0.86, Estim Creat Clear Calc 82.53, Est GFR (MDRD) Af Amer 112, Est GFR (MDRD) Non-Af 93, BUN/Creatinine Ratio 32.4 H, Glucose 125 H, Hemoglobin A1c 6.4 H, Calcium 9.2, Total Bilirubin 2.10 H, AST 22, ALT 22, Alkaline Phosphatase 76, Total Protein 6.7, Albumin 3.2, Globulin 3.5, Albumin/Globulin Ratio 0.9, Triglycerides 59, Cholesterol 179, LDL Cholesterol 123, VLDL Cholesterol 12, HDL Cholesterol 44, Procalcitonin < 0.04, TSH 1.11 10/22/23 05:57: Magnesium 2.7 H 10/22/23 06:36: POC Glucose 97 10/22/23 11:52: POC Glucose 145 H Micro: Microbiology 10/22/23 01:13 Mucosa - Nasopharyngeal Coronavirus COVID-19 PCR - Final 10/22/23 01:13 Mucosa - Nasopharyngeal Respiratory Panel (PCR) - Final Imaging Radiology Impression Brain CT 10/21/23 17:19 IMPRESSION: Chronic age related changes and atrophy. No acute abnormality or significant change. Electronically Signed: Toribio Giraldo MD at 17:34 EST , ADDENDUM: 10/21/23 1746 IMPRESSION: Chronic age related changes and atrophy. No acute abnormality or significant change. N.B. : The above Results were Read Back by Toribio Giraldo MD to Kayli Granados DO, and understanding confirmed on 10/21/2023 17:39:16 (ET). Electronically Signed: Toribio Giraldo MD at 17:34 EST Reading Location ID and State: [employer] / [place] , Service support , Head/Neck CTA 10/21/23 17:19 IMPRESSION: No acute abnormality. No large vessel occlusions. 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 Electronically Signed: Toribio Giraldo MD at 17:49 EST , ADDENDUM: 10/21/23 1758 IMPRESSION: No acute abnormality. No large vessel occlusions. 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 N.B. : The above Results were Read Back by Toribio Giraldo MD to Kayli Granados DO, and understanding confirmed on 10/21/2023 17:51:20 (ET). Electronically Signed: Toribio Giraldo MD at 17:49 EST , Chest X-Ray 10/21/23 18:05 IMPRESSION: No definite acute or significant abnormality seen. Electronically Signed: Toribio Giraldo MD at 19:00 EST , Active Medications Active Medications Active Medications: Current Medications Generic Name Dose Route Start Last Admin Trade Name Freq PRN Reason Stop Dose Admin Acetaminophen 1,000 mg 10/22/23 14:00 Acetaminophen 500 Mg Tablet PO Q8 AMADO Al Hydroxide/Mg Hydroxide 30 ml 10/21/23 20:32 Mag Hydrox/Al Hydrox/Simeth 30 Ml Udc PO Q6H PRN PRN Gastric Burning Albuterol Sulfate 2.5 mg 10/21/23 20:32 Albuterol 2.5 Mg/3 Ml Vial.Neb. INHALATION Q2H PRN PRN Dyspnea, wheezing Aspirin 81 mg 10/22/23 10:00 10/22/23 08:46 Aspirin E.C. 81 Mg Tablet PO 81 mg DAILY AMADO Administration Atorvastatin Calcium 80 mg 10/21/23 22:00 10/21/23 22:34 Atorvastatin Calcium 80 Mg Tablet PO 80 mg QHS AMADO Administration Baclofen 10 mg 10/21/23 20:32 10/22/23 11:33 Baclofen 10 Mg Tablet PO 10 mg TID PRN PRN Administration Muscle Spasm Clopidogrel Bisulfate 75 mg 10/22/23 10:00 10/22/23 08:46 Clopidogrel Bisulfate 75 Mg Tablet PO 75 mg DAILY AMADO Administration Dextrose 0 gm 10/21/23 20:32 Dextrose 50%-Water 25 Gm/50 Ml Disp.Syrin IV X1 PRN HYPOGLYCEMIA Protocol Enoxaparin Sodium 40 mg 10/22/23 10:00 10/22/23 08:45 Enoxaparin 40 Mg/0.4 Ml Syringe SC 40 mg DAILY AMADO Administration Fluticasone Propionate 1 - 2 spray 10/21/23 20:32 Fluticasone 0.05% 1 [place] Nasal.Sry NASAL BID PRN allergies, congestion Gabapentin 200 mg 10/21/23 22:00 10/22/23 06:38 Gabapentin 100 Mg Capsule PO 200 mg TID AMADO Administration Glucagon 1 mg 10/21/23 20:32 Glucagon 1 Mg/Ml Syringe IM X1 PRN HYPOGLYCEMIA Guaifenesin 20 ml 10/21/23 20:32 Guaifenesin 10 Ml Udc (200mg/10ml) PO Q4H PRN PRN COUGH Hydralazine HCl 5 mg 10/21/23 20:32 Hydralazine 20 Mg/Ml Vial IV Q30M PRN to maintain BP goals Sodium Chloride 250 mls @ 15 mls/hr 10/21/23 20:37 IV .[id number] PRN Saline Flush Sodium Chloride 250 mls @ 15 mls/hr 10/21/23 20:37 IV .[id number] PRN Additional IVPB Infusion Ceftriaxone Sodium 2 gm/ 50 mls @ 100 mls/hr 10/22/23 06:25 10/22/23 11:55 Sodium Chloride IV Infused Q12 AMADO Infusion Vancomycin IV-PHARMACY TO DOSE 500 mls @ 250 mls/hr 10/22/23 06:22 1 each/ Sodium Chloride IV X1 PRN Rx to Dose Protocol Ampicillin Sodium 2 gm/ Sodium 100 mls @ 200 mls/hr 10/22/23 08:30 10/22/23 10:32 Chloride IV Infused Q4H AMADO Infusion Vancomycin HCl 1,500 mg/ 530 mls @ 250 mls/hr 10/22/23 20:00 Sodium Chloride IV Q12H AMADO Sodium Chloride 1,000 mls @ 75 mls/hr 10/22/23 10:50 10/22/23 11:49 IV 10/23/23 00:09 75 mls/hr .[id number] AMADO Administration Insulin Human Lispro 0 unit 10/21/23 22:00 10/22/23 11:55 Insulin Lispro 100 Unit/Ml Insuln.Pen SC Not Given ACHS [facility] Protocol Labetalol HCl 10 - 20 mg 10/21/23 20:32 Labetalol (Prefilled) 20 Mg/4 Ml IV Q10M PRN PRN to Maintain BP Goals Linaclotide 72 mcg 10/22/23 10:00 Linaclotide 72 Mcg Capsule PO DAILY AMDAO Melatonin 3 mg 10/21/23 20:32 Melatonin 3 Mg Tablet PO QHS PRN PRN INSOMNIA Ondansetron HCl 4 mg 10/21/23 20:32 Ondansetron 4 Mg/2 Ml Vial IV Q8H PRN PRN NAUSEA/VOMITING Oxycodone HCl 7.5 mg 10/22/23 13:19 Oxycodone 5 Mg Tablet PO TID PRN PRN pain Pantoprazole Sodium 40 mg 10/21/23 20:32 Pantoprazole Sodium 40 Mg Tablet PO DAILY PRN Reflux Potassium Chloride 40 meq 10/22/23 11:00 10/22/23 11:36 Potassium Chloride Oral Tablet 20 Meq PO 10/22/23 14:01 40 meq Q3H AMADO Administration Prochlorperazine Edisylate 5 mg 10/21/23 20:32 Prochlorperazine 10 Mg/2 Ml Vial IV Q4H PRN PRN Breakthrough Nausea/Vomiting Senna/Docusate Sodium 2 tablet 10/21/23 20:32 Senna/Docusate Sodium 1 Tablet PO BID PRN PRN Constipation Sodium Chloride 10 - 40 ml 10/21/23 20:37 0.9% Saline Lock 10 Ml Syringe IV UD PRN SALINE FLUSH Sucralfate 1 gm 10/21/23 22:00 10/22/23 11:34 Sucralfate 1 Gm Tablet PO 1 gm 1HR_ACHS AMADO Administration Tamsulosin HCl 0.4 mg 10/21/23 22:00 10/21/23 22:34 Tamsulosin Hcl 0.4 Mg Capsule PO 0.4 mg QHS AMADO Administration Tamsulosin HCl 0.4 mg 10/22/23 13:19 Tamsulosin Hcl 0.4 Mg Capsule PO QHS PRN urinary retention Vancomycin Protocol 1 lab 10/23/23 17:30 Vancomycin Trough/Random Due MC 10/23/23 21:30 DAILY AMADO 10/22/23 1348 <Electronically signed by Bull Sanchez MD> Cosigner Signature (if applicable): CC: Arabella Walter; Saida Cantu; Tray Carreon; Susie Augustin MD; Jessica Ang MD; Claudy Tripathi MD; Dr. Meliton Coronel MD; Dr. Sara Reaves MD; Dr. Ben Velasco MD; Dr. Ivonne Holloway MD; Dr. Ham Giron MD; Dr. Adelso Whitehead MD; Dr. Marshall Bear MD; Dr. Monster Marina DO; Dr. Cheryl Gandhi MD; Dr. Bull Sanchez MD; Dr. Dae Das MD; Dr. Zach Cartagena MD; Dr. Melody Mar MD; Emily Wilson DO; Modesto Abarca MD~ Signed [facility] Work Phone: [phone]) 143-277003-10-2024 Progress note Author Sara Reaves [facility] October 22, 2023 6:21am Note Date/Time October 22, 2023 3:1 2am [facility] Medical Records Department [address] [place] [address] Progress Note - Hospitalist 10/22/23310 MR#: [id number] Acct: [id number] Name: JARET BATES Rep #:[id number] : 1955 68 From: Sara Reaves MD PCP: Dr. Marshall Bear MD Status:ADM IN Location: [place] [address] Hospitalist Note Patient with onset fever, admission CXR without acute findings, no marked WBC elevation or shift, UA unremarkable. Will obtain procalcitonin, full respiratoryviral panel, COVID PCR. If unremarkable, may necessitate further imaging or consideration prophylactic abx therapy. 10/22/23312 <Electronically signed by Sara Reaves MD> Cosigner Signature (if applicable): CC: ~ Signed ADDENDUM by Dr. Sara Reaves MD on 10/22/23 at 0619 Addendum Full respiratory viral panel negative, COVID negative. Will obtain repeat CXR now especially given overnight hydration and Bld Cx x 2. If no obvious findings may then need to consider LP given presentation. Until further work-up is obtained however will cautiously place on vanc, ampicillin and cefepime pending these results and may alter abx as needed or de-escalate off. Procalcitonin still pending. May need to consider ID consult also. Neurology already consultedand pending. 10/22/23618<Electronically signed by Sara Reaves MD> Cosigner Signature (if applicable): cc: ~* Signed ADDENDUM by Dr. Sara Reaves MD on 10/22/23 at 0621 Addendum Correction, will just do 3rd generation cephalosporin. 10/22/23620<Electronically signed by Sara Reaves MD> Cosigner Signature (if applicable): cc: ~* Signed [facility] Work Phone: 1(258) 870-594503-10-2024 Discharge summary Author Kayli Granados [facility] October 22, 2023 12:08am Note Date/Time October 21, 2023 5:23 pm [facility] Medical Records Department [address] [place] [address] Emergency Department Summary 10/21/23 MR#: [id number] Acct: [id number] Name: JARET BATES Rep #:[id number] : 1955 68 From: Kayli Granados PCP: Dr. Marshall Bear MD Status:ADM IN Location: [place] [address] HPI History of Present Illness Chief Complaint: Stroke Alert Detail of Chief Complaint: Concern for stroke Informant: patient and EMS Narrative Narrative: Patient brought to the emergency department from home by EMS. Last known well per apparently was yesterday sometime. Patient more confused and having a hard time expressing himself. Patient denies headache. Denies chest pain or abdominal pain. He is able to follow commands appropriately. At times have a hard time expressing what he wants to say. Normally per EMS stated that hespeaks normally. He denies recent illness. [facility] Medical History (Updated 10/21/23 @ 20:[address] Sara Reaves MD) Agent orange exposure Alcohol use Ambulates with cane Arthritis Arthropathy of cervical facet joint Asthma Atherosclerotic heart disease of [place] coronary artery without angina pectoris Back pain Bilirubinuria Cancer Cardiology follow-up encounter Cervical spondylosis Chondromalacia of both patellae Chondromalacia, left knee Chondromalacia, right knee Contact with or exposure to other viral diseases COVID-19 virus detected (11/19/20) Degeneration of cervical disc without myelopathy Degeneration of intervertebral disc of lumbosacral region Diabetes Fusion of spine, cervical region High cholesterol (~08/21/23) History of echocardiogram History of IBS History of pain when walking History of steroid therapy History of stress test Hyperlipemia Injury of head and neck Left knee DJD Nonrheumatic aortic (valve) stenosis with insufficiency Obesity Opioid dependence Prostate disease Radiculopathy of lumbosacral region Restless legs Right knee DJD Shortness of breath on exertion Smokeless tobacco use Spinal stenosis of lumbosacral region Spondylosis of lumbosacral region without myelopathy or radiculopathy Syncope Tear of medial meniscus of right knee Type 2 diabetes mellitus Wears hearing aid Home Medications aspirin 81 mg tablet,delayed release 81 mg PO DAILY HEART HEALTH 12/23/15 [History Last Taken 07/11/23] multivitamin 1 tab PO DAILY supplement 07/09/19 [History Last Taken 07/17/23 06:00] baclofen 10 mg tablet 10 mg PO TID PRN PRN Muscle Spasm 05/14/20 [History Last Taken 07/17/23 18:00] gabapentin 100 mg capsule 200 mg PO TID neuropathy 05/14/20 [History Last Taken 07/17/23 18:00] naproxen sodium 220 mg capsule (Aleve) 220 mg PO BID PRN Pain 02/04/22 [History Last Taken 07/17/23 18:00] albuterol sulfate 90 mcg/actuation aerosol inhaler 1 - 2 puff inhalation Q4H PRNPRN Wheezing #8.5 grams 04/21/22 [Rx Last Taken Unknown] handicap placard #1 ea 04/21/22 [Rx Last Taken Unknown] blood sugar diagnostic (FreeStyle Lite Strips) #100 ea 09/15/22 [Rx Last Taken Unknown] blood-glucose meter (FreeStyle Lite Meter kit) #1 ea 09/15/22 [Rx Last Taken Unknown] fluticasone propionate 50 mcg/actuation nasal spray,suspension 1 - 2 spray intranasal BID PRN allergies, congestion #16 grams 04/27/23 [Rx Last Taken 07/18/23 03:00] metformin 500 mg tablet 500 mg PO BID DIABETES #180 tabs 04/27/23 [Rx Last Taken 07/17/23 18:00] linaclotide 72 mcg capsule 72 mcg PO DAILY IBS #90 caps 06/27/23 [Rx Last Taken 07/17/23 06:00] acetaminophen 500 mg capsule 1,000 mg PO Q6H PRN pain 07/18/23 [History Last Taken 07/17/23 18:00] atorvastatin 40 mg tablet 40 mg PO QHS CHOLESTEROL #90 tabs 08/21/23 [Rx Last Taken Unknown] medical marijuana card PO 08/21/23 [History Last Taken Unknown] omeprazole 40 mg capsule,delayed release 40 mg PO DAILY PRN Reflux #30 caps 08/21/23 [Rx Last Taken Unknown] trazodone 50 mg tablet 50 - 100 mg (1 - 2 x 50 mg) PO QHS sleep #90 tabs 08/21/23 [Rx Last Taken Unknown] sucralfate 1 gram tablet (Carafate) 1 g PO QACHS #30 tabs 09/27/23 [Rx Last Taken Unknown] metoclopramide HCl 10 mg tablet (Reglan) 10 mg PO Q8H PRN PRN nausea and vomiting #14 tabs 10/01/23 [Rx Last Taken Unknown] ondansetron 4 mg disintegrating tablet 4 mg PO Q6H PRN nausea and vomiting #20 tabs 10/03/23 [Rx Last Taken Unknown] oxycodone 5 mg tablet 7.5 mg PO TID PRN PRN pain 10/21/23 [History Last Taken Unknown] tamsulosin 0.4 mg capsule 0.4 mg PO QHS PRN urinary retention 10/21/23 [History Last Taken Unknown] Allergy/AdvReac Type Severity Reaction Status Date / Time adhesive tape Allergy Rash Verified 10/21/23 17:52 sertraline [From Zoloft] AdvReac Unknown Verified 10/21/23 17:52 Family History (Updated 10/21/23 @ 20:[address] Sara Reaves MD) Brother Heart disease Myocardial infarction 60's CAD (coronary artery disease) Father Myocardial infarction 65 CAD (coronary artery disease) Mother HLD (hyperlipidemia) when son was 16 following MVA, healthy aside HLD. Surgical History H/O cervical spine surgery (08/2020) H/O coronary artery bypass surgery (09/14/11) History of back surgery History of carpal tunnel release History of herniorrhaphy History of lateral meniscus repair of right knee (~2021) History of left heart catheterization (09/09/11) Hx laparoscopic cholecystectomy (~11/2022) Hx of bilateral cataract extraction Status post discectomy for herniated nucleus pulposus Social History (Updated 10/21/23 @ 20:[address] Sara Reaves MD) household members: spouse Smoking Status: Never smoker Smokeless tobacco user: chewing tobacco alcohol intake: current alcohol intake frequency: a few times a month substance use type: does not use caffeine: Yes Type: coffee Number of servings: 2 ROS ROS ED Review of Systems ROS Unobtainable: other Constitutional Constitutional ED: Reports lethargy; Denies chills, fever(s), sweats or weight loss Eyes Eyes: Denies blurry vision, change in vision or diplopia ENT ENT ED: Denies rhinorrhea or sore throat Cardiovascular Cardiovascular: Denies chest pain, orthopnea or racing heartbeat Respiratory/Chest Respiratory/Chest: Denies cough, dyspnea, dyspnea on exertion, orthopnea or sputum Gastrointestinal Gastrointestinal: Denies abdominal pain, diarrhea, nausea or vomiting Genitourinary Genitourinary ED: Denies dysuria, hematuria or urinary frequency Musculoskeletal Musculoskeletal: Denies arthralgias, back pain, myalgias or neck pain Integumentary Denies abscess, Abrasions or rash Neurologic Neurologic: Reports other Details: Confusion and difficulty with speech ; Denies headache(s) or weakness Psychiatric Psychiatric: Denies anxiety, depression or suicidal thoughts Endocrine Endocrinology: Denies polydipsia, polyphagia or polyuria Hematologic/Lymphatic Hematologic/Lymphatic: Denies easy bleeding, easy bruising or lymphadenopathy Allergic/Immunologic Allergic/Immunologic ED: Denies mouth swelling, tongue swelling or urticaria EXAM Physical Exam Const Vital Signs: 10/21/23 17:37 10/21/23 17:41 10/21/23 17:48 Temperature 98.0 F Temperature Source Oral Pulse Rate 82 82 Respiratory Rate 16 15 Blood Pressure 136/82 H 136/73 H Blood Pressure Mean 100 94 Pulse Ox 98 96 Oxygen Delivery Method Room Air Room Air Room Air 10/21/23 18:17 10/21/23 19:15 10/21/23 19:30 Temperature Temperature Source Pulse Rate 81 79 77 Respiratory Rate 17 16 19 H Blood Pressure 131/86 H 123/73 H 135/75 H Blood Pressure Mean 101 89 95 Pulse Ox 97 97 95 Oxygen Delivery Method Room Air Room Air Room Air Positive well nourished and well developed General Appearance ED: well developed and NAD HEENT Reports TM's clear and moist mucous membranes normocephalic and atraumatic; Negative for trauma or tenderness Tympanic Membrane ED: Yes TM's clear Eyes PERRL and EOMs intact bilaterally General Eye ED: Negative for pale conjunctiva or scleral icterus Neck no lymphadenopathy, supple and no JVD General: Negative for tenderness Chest Wall inspection of chest normal and palpation of chest normal Chest: Negative for tenderness Resp normal respiratory effort and clear to auscultation bilaterally Effort and Inspection: Negative for respiratory distress or pain with movement Auscultation: Negative for rhonchi, wheezes or diminished lung sounds Cardio regular rate, regular rhythm, S1 normal heart sound, S2 normal heart sound and no murmurs Peripheral Pulses: pulses 2+ throughout GI normal to inspection, nondistended, normoactive bowel sounds, soft to palpation,non-tender, non-distended and no masses Back/Spine no CVA tenderness and no thoracic nor lumbar tenderness Extremity normal to inspection General Extremety ED: Negative for edema General Extremity: Negative for edema Neuro oriented x3, CN's II-XII intact bilaterally, no sensory deficits noted and gait normal Neuro Narrative: No obvious facial droop. No obvious focal weakness as there seems to be just a generalized weakness of both upper and lower extremities. Patient does have some expressive aphasia. Did give him an NIH of 2. Sensorium / Orientation: awake, alert, oriented to person, oriented to place andoriented to time Motor Exam: strength 5/5 throughout and strength abnormal Psych mental status grossly normal Skin no rashes or lesions noted and no wounds MDM MDM MDM Narrative Medical decision making narrative: Patient presents with concern for stroke and last known well was yesterday. Patient will not be a thrombolytic candidate. Unclear if patient having stroke versus other metabolic encephalopathy. Discussed case with stroke neurologist and they are in agreement that will not require thrombolytics due to patient notbeing in timeframe for such. EKG obtained arrival showed a sinus rhythm with rate of 81 bpm with no acute ST segment changes. CBC with differential showed anormal white count of 10.3 with hemoglobin 13 and platelet count of 343. Chemistries unremarkable. Troponin was normal at 28. Ammonia level was less than 10. Urinalysis was normal. At this point etiology of symptoms unclear butwill need to rule out stroke and will need admitted for MRI and further evaluation. Will discuss case with hospitalist to evaluate further. Lab Data Attestation: I reviewed the patient's lab results. Labs: Laboratory Results - last 24 hr 10/21/23 10/21/23 10/21/23 16:52 18:25 18:27 WBC 10.3 RBC 4.60 Hgb 13.1 Hct 39.1 L MCV 85.0 MCH 28.5 MCHC 33.5 RDW Std Deviation 41.1 RDW Coeff of Frankie 13.3 Plt Count 343 MPV 8.1 Immature Gran % (Auto) 0.400 Neut % (Auto) 69.6 Lymph % (Auto) 20.2 [place] % (Auto) 9.6 Eos % (Auto) 0.0 Baso % (Auto) 0.2 Absolute Neuts (auto) 7.2 Absolute Lymphs (auto) 2.09 Nucleated RBC % 0 PT 13.7 INR 1.1 APTT 26.6 Sodium 131 L Potassium 3.2 L Chloride 97 L Carbon Dioxide 26.0 Anion Gap 8 BUN 24 H Creatinine 0.84 Estim Creat Clear Calc 84.49 Est GFR (MDRD) Af Amer 116 Est GFR (MDRD) Non-Af 96 BUN/Creatinine Ratio 28.5 H Glucose 131 H Calcium 9.5 Magnesium 1.4 L Ammonia < 10.0 L Troponin I High Sens 28 Urine Color Yellow Urine Clarity Clear Urine pH 7.0 Ur Specific [place] 1.010 Urine Protein 30 H Urine Glucose (UA) 50 H Urine Ketones 15 H Urine Occult Blood 25 H Urine Nitrite Negative Urine Bilirubin Negative Urine Urobilinogen Normal Ur Leukocyte Esterase 25 H Urine RBC 0 SEEN Urine WBC 0-5 SEEN Ur Squamous Epith Cells 0 SEEN Urine Bacteria 0 SEEN Urine Mucus 0 SEEN Radiography Diagnostic Testing: Clinical Impression(s) from Imaging Studies Brain CT 10/21/23 17:19 IMPRESSION: Chronic age related changes and atrophy. No acute abnormality or significant change. Electronically Signed: Toribio Giraldo MD at 17:34 EST , ADDENDUM: 10/21/23 1746 IMPRESSION: Chronic age related changes and atrophy. No acute abnormality or significant change. N.B. : The above Results were Read Back by Toribio Giraldo MD to Kayli Granados DO, and understanding confirmed on 10/21/2023 17:39:16 (ET). Electronically Signed: Toribio Giraldo MD at 17:34 EST , Head/Neck CTA 10/21/23 17:19 IMPRESSION: No acute abnormality. No large vessel occlusions. 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 Electronically Signed: Toribio Giraldo MD at 17:49 EST , ADDENDUM: 10/21/23 1758 IMPRESSION: No acute abnormality. No large vessel occlusions. 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 N.B. : The above Results were Read Back by Toribio Giraldo MD to Kayli Granados DO, and understanding confirmed on 10/21/2023 17:51:20 (ET). Electronically Signed: Toribio Giraldo MD at 17:49 EST , Chest X-Ray 10/21/23 18:05 IMPRESSION: No definite acute or significant abnormality seen. Electronically Signed: Toribio Giraldo MD at 19:00 EST , 1 view chest x-ray obtained interpreted by myself as no evidence of infiltrate or pneumothorax or acute process. Radiology in agreement. EKG Initial EKG: Attestation: I personally reviewed and interpreted this EKG as follows: Comments: Sinus rhythm with rate of 81 bpm with no acute ST segment changes Discharge Plan Dx/Rx/DC Orders Clinical Impression: Expressive aphasia, Acute CVA (cerebrovascular accident), Altered mental status Disposition Disposition: Acute Care [facility] Discharge Date/Time: 10/21/23 20:11 What to do if you have Problems For any increased pain, shortness of breath, bleeding, nausea or vomiting, chestpain, or any unexpected problems, contact your Primary Care Provider. Call [facility] ([phone]) or report to the closest Emergency Room. Call 911 if necessary. 10/22/23 0008 <Electronically signed by Kayli Granados DO> Cosigner Signature (if applicable): CC: Dr. Marshall Bear MD ~ Signed [facility] Work Phone: 1(405) 330-149803-09-2024 History and physical note Author Sara Reaves [facility] October 21, 2023 8:19pm Note Date/Time October 21, 2023 7:25 pm [facility] Medical Records Department [address] [place] [address] H&P Exam - Hospitalist 10/21/231923 MR#: [id number] Acct: [id number] Name: JARET BATES Rep #:[id number] : 1955 68 From: Sara Reaves MD PCP: Dr. Marshall Bear MD Status:ADM IN Location: [place] [address] HPI - General General Date of Admission: 10/21/23 Date of Service: 10/21/23 Chief Complaint: Expressive aphasia. HPI Narrative The patient is a 68 y/o M w/ PMHx: Asthma, CAD s/p CABG, BPH, RLS, Tobacco use, Chronic back pain with radidulopathy s/p prior surgical intervention, Diabetes mellitus type II with chronic neuropathy who presents to the [facility] ED on 10/21/2023 as a stroke alert via EMS with last known well per the ~ 2 days prior to unclear time however he had been today more confused and having a difficult timeexpressing himself over the last 2 days with no recent headache and ability to follow commands prompting eventual ED evaluation. Workup in the ED included T98,heart rate 82, BP 136/82, respiratory rate 16, 98% on room air with most recent repeat vital signs heart rate 79, BP 123/73, respiratory rate 16, 97% on room air, CBC with WBC 10.3, human 13.1, platelet 343 without marked shift, unremarkable coags, BMP with sodium 131, potassium 3.2, chloride 97, BUN/creatinine 24/0.84, glucose 131, troponin 28, ammonia less than 10, urinalysis not marked appearing with no obvious evidence of UTI, CT of the brainwith chronic age-related changes with no acute intracranial findings otherwise, chest x-ray with no acute cardiopulmonary findings, CTA head and neck with no acute abnormality, no large vessel occlusion, mild grade stenosis of the right ICA with less than 50% cross-sectional diameter stenosis noted, EKG was sinus rhythm with no acute evidence of ischemia. In the ED NIHSS scored 2. In the ED patient placed on maintenance IV fluids. [facility] Medical History (Updated 10/21/23 @ 20:[address] Sara Reaves MD) Agent orange exposure Alcohol use Ambulates with cane Arthritis Arthropathy of cervical facet joint Asthma Atherosclerotic heart disease of [place] coronary artery without angina pectoris Back pain Bilirubinuria Cancer Cardiology follow-up encounter Cervical spondylosis Chondromalacia of both patellae Chondromalacia, left knee Chondromalacia, right knee Contact with or exposure to other viral diseases COVID-19 virus detected (11/19/20) Degeneration of cervical disc without myelopathy Degeneration of intervertebral disc of lumbosacral region Diabetes Fusion of spine, cervical region High cholesterol (~08/21/23) History of echocardiogram History of IBS History of pain when walking History of steroid therapy History of stress test Hyperlipemia Injury of head and neck Left knee DJD Nonrheumatic aortic (valve) stenosis with insufficiency Obesity Opioid dependence Prostate disease Radiculopathy of lumbosacral region Restless legs Right knee DJD Shortness of breath on exertion Smokeless tobacco use Spinal stenosis of lumbosacral region Spondylosis of lumbosacral region without myelopathy or radiculopathy Syncope Tear of medial meniscus of right knee Type 2 diabetes mellitus Wears hearing aid Home Medications aspirin 81 mg tablet,delayed release 81 mg PO DAILY HEART HEALTH 12/23/15 [History Last Taken 07/11/23] multivitamin 1 tab PO DAILY 07/09/19 [History Last Taken 07/17/23 06:00] baclofen 10 mg tablet 10 mg PO PRN PRN Muscle Spasm 05/14/20 [History Last Taken 07/17/23 18:00] gabapentin 100 mg capsule 200 mg PO TID 05/14/20 [History Last Taken 07/17/23 18:00] naproxen sodium 220 mg capsule (Aleve) 220 mg PO BID PRN Pain 02/04/22 [History Last Taken 07/17/23 18:00] albuterol sulfate 90 mcg/actuation aerosol inhaler 1 - 2 puff inhalation Q4H PRNPRN Wheezing #8.5 grams 04/21/22 [Rx Last Taken Unknown] handicap placard #1 ea 04/21/22 [Rx Last Taken Unknown] blood sugar diagnostic (FreeStyle Lite Strips) #100 ea 09/15/22 [Rx Last Taken Unknown] blood-glucose meter (FreeStyle Lite Meter kit) #1 ea 09/15/22 [Rx Last Taken Unknown] fluticasone propionate 50 mcg/actuation nasal spray,suspension 1 - 2 spray intranasal BID PRN allergies, congestion #16 grams 04/27/23 [Rx Last Taken 07/18/23 03:00] metformin 500 mg tablet 500 mg PO BID DIABETES #180 tabs 04/27/23 [Rx Last Taken 07/17/23 18:00] linaclotide 72 mcg capsule 72 mcg PO DAILY IBS #90 caps 06/27/23 [Rx Last Taken 07/17/23 06:00] acetaminophen 500 mg capsule 1,000 mg PO Q6H PRN pain 07/18/23 [History Last Taken 07/17/23 18:00] atorvastatin 40 mg tablet 40 mg PO QHS CHOLESTEROL #90 tabs 08/21/23 [Rx Last Taken Unknown] medical marijuana card PO 08/21/23 [History Last Taken Unknown] omeprazole 40 mg capsule,delayed release 40 mg PO DAILY PRN Reflux #30 caps 08/21/23 [Rx Last Taken Unknown] tamsulosin 0.4 mg capsule 0.4 mg PO QHS #30 caps 08/21/23 [Rx Last Taken Unknown] trazodone 50 mg tablet 50 - 100 mg (1 - 2 x 50 mg) PO QHS sleep #90 tabs 08/21/23 [Rx Last Taken Unknown] sucralfate 1 gram tablet (Carafate) 1 g PO QACHS #30 tabs 09/27/23 [Rx Last Taken Unknown] metoclopramide HCl 10 mg tablet (Reglan) 10 mg PO Q8H PRN PRN nausea and vomiting #14 tabs 10/01/23 [Rx Last Taken Unknown] ondansetron 4 mg disintegrating tablet 4 mg PO Q6H PRN nausea and vomiting #20 tabs 10/03/23 [Rx Last Taken Unknown] Allergy/AdvReac Type Severity Reaction Status Date / Time adhesive tape Allergy Rash Verified 10/21/23 17:52 sertraline [From Zoloft] AdvReac Unknown Verified 10/21/23 17:52 Family History (Updated 10/21/23 @ 20:[address] Sara Reaves MD) Brother Heart disease Myocardial infarction 60's CAD (coronary artery disease) Father Myocardial infarction 65 CAD (coronary artery disease) Mother HLD (hyperlipidemia) when son was 16 following MVA, healthy aside HLD. Surgical History H/O cervical spine surgery (08/2020) H/O coronary artery bypass surgery (09/14/11) History of back surgery History of carpal tunnel release History of herniorrhaphy History of lateral meniscus repair of right knee (~2021) History of left heart catheterization (09/09/11) Hx laparoscopic cholecystectomy (~11/2022) Hx of bilateral cataract extraction Status post discectomy for herniated nucleus pulposus Social History (Updated 10/21/23 @ 20:[address] Sara Reaves MD) household members: spouse Smoking Status: Never smoker Smokeless tobacco user: chewing tobacco alcohol intake: current alcohol intake frequency: a few times a month substance use type: does not use caffeine: Yes Type: coffee Number of servings: 2 ROS Review of Systems ROS Unobtainable: other Details: Cannot given ROS secondary to notable expressive aphasia presentation. Vital Signs Vital Signs Vital Signs: 10/21/23 17:37 10/21/23 17:41 10/21/23 17:48 Temperature 98.0 F Temperature Source Oral Pulse Rate 82 82 Respiratory Rate 16 15 Blood Pressure 136/82 H 136/73 H Blood Pressure Mean 100 94 Pulse Ox 98 96 Oxygen Delivery Method Room Air Room Air Room Air 10/21/23 18:17 10/21/23 19:15 Temperature Temperature Source Pulse Rate 81 79 Respiratory Rate 17 16 Blood Pressure 131/86 H 123/73 H Blood Pressure Mean 101 89 Pulse Ox 97 97 Oxygen Delivery Method Room Air Room Air Weight Weight: 189 lb Body Mass Index (BMI) 27.1 Physical Exam Narrative Physical Examination: General: Awake, alert, notable difficulty with orientation questions with significant dysarthria and expressive aphasia, still following commands, cooperative, seated upright in the ED bed, anxious appearing. Skin: Normal color, normal turgor, no icterus, no cyanosis except occasional staged ecchymoses. HEENT: AT/NC, EOMI, PERRLA, mildly dry MM, poor dentition, no carotid bruits or JVD noted. Lungs: Mildly diminished, greater bases, appropriate effort, no rales, ronchi orwheezing. Heart: Regular rate and rhythm; no gallop, rub audible. Abdomen: Soft, overweight, NTTP, ND, mildly hyperactive BS, no appreciated HSM. Extremities: No cyanosis, clubbing, or edema. Neurological: Patient awake, alert, oriented as noted, cognitive function unfortunately difficult to assess given expressive aphasia and dysarthria, following commands appropriately thus do suspect cognitively likely baseline butunable to discern, pupils equally reactive to light and accommodation, cranial nerves grossly normal, moving all 4 extremities, no focal deficits, strength, finger-nose and [id number] appropriate, sensation intact, equivocal Babinski Psychiatric: Affect appears fatigued, anxious as expected, no evidence of depressive feelings. Results Lab / Micro Data 10/21/23 16:52 10/21/23 16:52 Labs: Laboratory Results - last 24 hr 10/21/23 16:52: WBC 10.3, RBC 4.60, Hgb 13.1, Hct 39.1 L, MCV 85.0, MCH 28.5, MCHC 33.5, RDW Std Deviation 41.1, RDW Coeff of Frankie 13.3, Plt Count 343, MPV 8.1, Immature Gran % (Auto) 0.400, Neut % (Auto) 69.6, Lymph % (Auto) 20.2, [place]% (Auto) 9.6, Eos % (Auto) 0.0, Baso % (Auto) 0.2, Absolute Neuts (auto) 7.2, Absolute Lymphs (auto) 2.09, Nucleated RBC % 0, PT 13.7, INR 1.1, APTT 26.6, Sodium 131 L, Potassium 3.2 L, Chloride 97 L, Carbon Dioxide 26.0, Anion Gap 8, BUN 24 H, Creatinine 0.84, Estim Creat Clear Calc 84.49, Est GFR (MDRD) Af Amer 116, Est GFR (MDRD) Non-Af 96, BUN/Creatinine Ratio 28.5 H, Glucose 131 H, Calcium 9.5, Troponin I High Sens 28 10/21/23 18:25: Urine Color Yellow, Urine Clarity Clear, Urine pH 7.0, Ur Specific [place] 1.010, Urine Protein 30 H, Urine Glucose (UA) 50 H, Urine Ketones 15 H, Urine Occult Blood 25 H, Urine Nitrite Negative, Urine Bilirubin Negative, Urine Urobilinogen Normal, Ur Leukocyte Esterase 25 H, Urine RBC 0 SEEN, Urine WBC 0-5 SEEN, Ur Squamous Epith Cells 0 SEEN, Urine Bacteria 0 SEEN,Urine Mucus 0 SEEN 10/21/23 18:27: Ammonia < 10.0 L Imaging Radiology Impression Brain CT 10/21/23 17:19 IMPRESSION: Chronic age related changes and atrophy. No acute abnormality or significant change. Electronically Signed: Toribio Giraldo MD at 17:34 EST Reading Location ID and State: [facility] / [place] , Service support , ADDENDUM: 10/21/23 1746 IMPRESSION: Chronic age related changes and atrophy. No acute abnormality or significant change. N.B. : The above Results were Read Back by Toribio Giraldo MD to Kayli Granados DO, and understanding confirmed on 10/21/2023 17:39:16 (ET). Electronically Signed: Toribio Giraldo MD at 17:34 EST Reading Location ID and State: [facility] / [place] , Service support , Head/Neck CTA 10/21/23 17:19 IMPRESSION: No acute abnormality. No large vessel occlusions. 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 Electronically Signed: Toribio Giraldo MD at 17:49 EST Reading Location ID and State: [facility] / [place] , Service support , ADDENDUM: 10/21/23 1758 IMPRESSION: No acute abnormality. No large vessel occlusions. 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 N.B. : The above Results were Read Back by Toribio Giraldo MD to Remus Ungur, DO, and understanding confirmed on 10/21/2023 17:51:20 (ET). Electronically Signed: Toribio Giraldo MD at 17:49 EST , Chest X-Ray 10/21/23 18:05 IMPRESSION: No definite acute or significant abnormality seen. Electronically Signed: Toribio Giraldo MD at 19:00 EST , Assessment & Plan Assessment/Plan (1) Acute CVA (cerebrovascular accident): PLAN: Plan The patient is a 68 y/o M w/ PMHx: Asthma, CAD s/p CABG, BPH, RLS, Tobacco use, Chronic back pain with radidulopathy s/p prior surgical intervention, Diabetes mellitus type II with chronic neuropathy who presents to the [facility] ED on 10/21/2023 as a stroke alert via EMS with last known well per the ~ 2 days prior to unclear time however he had been today more confused and having a difficult timeexpressing himself over the last 2 days with no recent headache and ability to follow commands prompting eventual ED evaluation. #1. Expressive aphasia, dysarthria concerning for CVA with noted mild grade stenosis of the right ICA less than 50%: Will admit to PCU, will obtain MRI Brain, will obtain follow-up carotid ultrasound to further assess right ICA to assist in outpatient follow-up, ECHO, PT/OT/Speech/Nutrition evaluation per protocol. Will allow permissive HTN although no history and not on regimen, maintain on asa/add plavix pending neurology evaluation, change to high dose statin w/ AM FLP, fall precautions. Mag, TSH, FLP, HgbA1c requested. Maintain onfall and aspiration precautions. Maintain Neurology consultation. #2. Hyponatremia, mild, possibly mild hypovolemic component: Admission BMP withsodium 131, chloride 97, will continue to hydration with repeat CMP in AM. #3. Hypokalemia: Admission K+ 3.2, magnesium level requested, supplementation given, repeat level in AM. #4. Chronic asthma: Per current list not on inhalers,PRN albuterol, HOB, IS parameters. #5. CAD: Status post CABG x 3, will continue aspirin, changed to high-dose statin, per current list does not appear to be on any beta-jey or SELINA inhibitor/ARB but there is also no reported history of hypertensive disease, will closely monitor and add if appropriate once off permissive hypertension concept otherwise may defer to outpatient. #6. Chronic back pain with radiculopathy: Status post prior surgical intervention, maintain on fall precautions, will continue patient chronic gabapentin regimen, if necessary may cautiously use patient's baclofen regimen however would like to avoid sedation given acute presentation and need for constant evaluation. #7. Diabetes mellitus type II with chronic neuropathy: Hold oral home regimen, hemoglobin A1c requested, nutrition consulted for education and teaching given presentation ADA diet, accu checks w/ ISS, continue patient home chronic gabapentin regimen. #8. Hyperlipidemia: Changing to high-dose statin regimen. AM FLP. #9. GERD: Will continue patient home PPI and sucralfate regimen. #10. BPH: We will continue patient on Flomax regimen. #11. Tobacco Abuse: Encouraged to tobacco cessation, inpatient consultation perRT, NR if desired. Patient usually uses 1 can every 3 to 4 days. #12. Restless leg syndrome: On a regimen, if necessary may add Requip #13. DVT prophylaxis: Lovenox. #14. CODE status: Patient ANGELOOA is his was present and living will is currently in place. Discussed CODE status at length including difference betweenFULL code, DNR-CCA and DNR-CC status. Following discussions about the differences in these status, requested Full Code status. Advanced Care Planning Face to Face Time: 16 minutes. Charges/Coding Visit Charges Inpatient E&M: 42284 Init Hosp L3 Procedures Hospitalists Procedures: 97291 Advncd Care Plan 30 Min 10/21/232018 <Electronically signed by Sara Reaves MD> Cosigner Signature (if applicable): CC: Dr. Sara Reaves MD; Dr. Marshall Bear MD~ Signed [facility] Work Phone: 1(300) 339-637902-28-2024 Miscellaneous Notes* Discharge Instr - Nursing - Velia Ravi RN - 10/11/2023 9:32 AM EST The patient received a copy of EGD discharge instructions that contain information for how to contact the physician who performed the procedure and when to seek medical care. [facility]* Velia Ravi RN - 10/11/2023 9:30 AM EST Arrived in phase II via cart. Left lateral position. Sedated, but responds to verbal stimuli. Colornormal; skin warm and dry. Respirations wnl and unlabored. Abdomen soft and with + bowel sounds in quads X 4. Patient resting comfortably. Family at bedside. Dr. Marshall at bedside to review procedure and recommendations. Velia Ravi RN * Velia Ravi RN - 10/11/2023 8:48 AM EST Arrived in phase II via cart. Left lateral position. [id number], but responds to verbal stimuli. Color normal; skin warm and dry. Respirations wnl and unlabored. Abdomen soft and with + bowel sounds in quads X 4. Patient resting comfortably. Family at bedside. Dr. Marshall at bedside to review pr ocedure and recommendations. Velia Ravi RN [facility] History and physical note * Ben Marshall MD - 10/11/2023 8:30 AM EST HISTORY AND PHYSICAL Jaret Bates 1955 REFERRING PHYSICIAN: Jose Juan Pena MD CHIEF COMPLAINT: No chief complaint on file. HPI: The patient is a 68 year old male referred for endoscopy. Jaret notes The patient notes the following upper complaints: Jaret notes abdominal pain. The pain occurs in the following locations: epigastric region . Jaret denies heartburn. Jaret denies dysphagia. Jaret denies a history of ulcers/ peptic ulcer disease. Jaret has undergone prior endoscopy. PAST MEDICAL HISTORY [...] 06/16/2017 Added automatically from request for surgery [id number] Impaired fasting glucose 07/15/2016 laparoscopic cholecystectomy 2022 [...] 2 Puffs as instructed every 4 hours asneeded for Wheezing/Shortness of Breath. Current Facility-Administered Medications [...] temperature 36.6 C (97.8 F), temperature source Temporal,resp. rate 22, weight 96.6 kg (212 lb 15.4 oz), SpO2 96%. Body mass index is 30.56 kg/m . HEENT: Normal cephalic, ataumatic, pupils are equally round, sclera are anicteric, mucous membranesare moist, oropharynx is clear. Neck has no [...] Ben Marshall III, MD documented in this [facility]Tr[facility]24 NoteHNO ID: [id number] Author: JOSE JUAN PENA MD Service: ? Author Type: Physician Type: Progress Notes Filed: 09/28/2023 08:29 Note Text: Called by patient's PCP Dr. Zonia Batista for increasing epigastric symptoms. Patient had prior upper endoscopy before his cholecystectomy which did demonstrate gastritis. Will plan for urgent upper endoscopy.[facility]02-15-2024 History of Present illness Narrative* Jose Juan Pena MD - 09/28/2023 8:24 AM EST Called by patient's PCP Dr. Zonia Batista for increasing epigastric symptoms. Patient had prior upper endoscopy before his cholecystectomy which did demonstrate gastritis. Will plan for urgent upper endoscopy. [facility] Evaluation note* Diagnosis Onset Date Resolution Status Bilateral primary osteoarthritis of knee acute Urinary frequency acute Herniated nucleus pulposus, L4-5 left resolved Herniated nucleus pulposus, L4-5 left resolved High cholesterol August, acute Herniated nucleus pulposus, L4-5 left resolved Status post discectomy for h erniated nucleus pulposus resolved S/P laminectomy acute S/P laminectomy acute S/P laminectomy acute BPH w urinary obs/LUTS acute Essential (primary) hypertension acute S/P laminectomy acute Sinus infection acute Hyperlipemia chronic Type 2 diabetes mellitus chr onic Lumbosacral radiculopathy at L5 acute S/P laminectomy acute [facility] Work Phone: 1([phone]) 128-511501-01-2024 Evaluation note* Diagnosis Onset Date Resolution Status Herniated nucleus pulposus, L4-5 left resolved High cholesterol August, acute Herniated nucleus pulposus, L4-5 left resolved Status post discectomy for h erniated nucleus pulposus resolved S/P laminectomy acute S/P laminectomy acute S/P laminectomy acute BPH w urinary obs/LUTS acute Essential (primary) hypertension acute S/P laminectomy acute Sinus infection acute Hyperlipemia chronic Type 2 diabetes mellitus chr onic Lumbosacral radiculopathy at L5 acute S/P laminectomy acute Lumbosacral radiculopathy at L5 acute S/P laminectomy acute Abdominal pain acute Bilirubinuria acute Contact with or exposure to other viral diseases acute Abdominal pain acute Bilirubinuria acute [facility] Work Phone: 1([phone]) 126-186601-01-2024 Evaluation note* Diagnosis Onset Date Resolution Status Herniated nucleus pulposus, L4-5 left resolved High cholesterol August, acute Herniated nucleus pulposus, L4-5 left resolved Status post discectomy for h erniated nucleus pulposus resolved S/P laminectomy acute S/P laminectomy acute S/P laminectomy acute BPH w urinary obs/LUTS acute Essential (primary) hypertension acute S/P laminectomy acute Sinus infection acute Hyperlipemia chronic Type 2 diabetes mellitus chr onic Lumbosacral radiculopathy at L5 acute S/P laminectomy acute Lumbosacral radiculopathy at L5 acute S/P laminectomy acute Abdominal pain acute Bilirubinuria acute Contact with or exposure to other viral diseases acute Abdominal pain acute Bilirubinuria acute Acute CVA (cerebrovascular accident) acute Altered mental status acute Expressive aphasia acute [facility] Work Phone: 1(165) 475-120501-01-2024 Evaluation note* Diagnosis Onset Date Resolution Status Herniated nucleus pulposus, L4-5 left resolved High cholesterol August, acute Herniated nucleus pulposus, L4-5 left resolved Status post discectomy for h erniated nucleus pulposus resolved S/P laminectomy acute S/P laminectomy acute S/P laminectomy acute BPH w urinary obs/LUTS acute Essential (primary) hypertension acute S/P laminectomy acute Sinus infection acute Hyperlipemia chronic Type 2 diabetes mellitus chr onic Lumbosacral radiculopathy at L5 acute S/P laminectomy acute Lumbosacral radiculopathy at L5 acute S/P laminectomy acute Abdominal pain acute Bilirubinuria acute Contact with or exposure to other viral diseases acute Abdominal pain acute Bilirubinuria acute Acute CVA (cerebrovascular accident) acute Altered mental status acute Discitis of lumbar region ac [place] Expressive aphasia acute S/P laminectomy acute [facility] Work Phone: 1(498) 307-534412-07-2023 Discharge summary Author Ventura Godoy [facility] July 20, 2023 2:13pm Note Date/Time July 20, 2023 2 :13pm [facility] Medical Records Department [address] [place] [address] Discharge Summary 07/20/23 1410 MR#: [id number] Acct: [id number] Name: JARET BATES Rep #:[id number] : 1955 68 From: Ventura Fournier PCP: Dr. Marshall Bear MD Status:ADM IN Location: [place] 112344-1 Providers Date of Admission: 07/18/23 Primary Care Physician: Dr. Marshall Bear MD Attending Physician: This is a discharge summary on patient Jaret Bates. This patient was admitted on Monday 2 days ago. He underwent repeat lumbar laminectomy L4-5 on the left side with discectomy and removal of ligamentum flavum. He did get a dural leak at the time so he has been flat on his back since the surgery but he has been uptoday. His dressing is dry. Neurologically is intact. He also reports that his leg pain is gone. He was told that the dressing can be removed in 4 days and he can take showers in 5 days. He already has an appointment to see me in the office. In addition I will give him oxycodone/acetaminophen 5 mg for pain at home. Is the end of discharge summary on Jaret Bates. This is Dr. Godoy dictating. Consultations 07/18/23 11:05 Consult: Hospitalist Routine Consulting Provider: Dimas Clinton Reason for Consult: Medical Management EMERGENT Consult: No MD Notified: Yes Date Notified: 07/18/23 Time Notified: 13:24 Method of Notification: Text Reason For Visit: Repeat Lumbar laminectomy L4-5 left Diagnosis Discharge Diagnosis (1) High cholesterol: Status: Acute Code(s): E78.00 - Pure hypercholesterolemia, unspecified Medications at Discharge Home Medications aspirin 81 mg tablet,delayed release 81 mg PO DAILY [facility] 12/23/15 multivitamin 1 tab PO DAILY 07/09/19 baclofen 10 mg tablet 10 mg PO PRN PRN Muscle Spasm 05/14/20 gabapentin 100 mg capsule 200 mg PO TID 05/14/20 naproxen sodium 220 mg capsule (Aleve) 220 mg PO BID PRN Pain 02/04/22 albuterol sulfate 90 mcg/actuation aerosol inhaler 1 - 2 puff inhalation Q4H PRNPRN Wheezing #8.5 grams 04/21/22 handicap placard #1 ea 04/21/22 blood sugar diagnostic (FreeStyle Lite Strips) #100 ea 09/15/22 blood-glucose meter (FreeStyle Lite Meter kit) #1 ea 09/15/22 atorvastatin 40 mg tablet 40 mg PO QHS CHOLESTEROL #90 tabs 04/27/23 fluticasone propionate 50 mcg/actuation nasal spray,suspension 1 - 2 spray intranasal BID PRN allergies, congestion #16 grams 04/27/23 metformin 500 mg tablet 500 mg PO BID DIABETES #180 tabs 04/27/23 trazodone 50 mg tablet 50 - 100 mg (1 - 2 x 50 mg) PO QHS sleep #90 tabs 04/27/23 oxycodone 5 mg capsule 5 mg PO Q8H 05/10/23 linaclotide 72 mcg capsule 72 mcg PO DAILY IBS #90 caps 06/27/23 acetaminophen 500 mg capsule 1,000 mg PO Q6H PRN pain 07/18/23 omeprazole 40 mg capsule,delayed release 40 mg PO DAILY 07/18/23 Weight / BMI Weight Weight: 219 lb 0.009 oz Body Mass Index (BMI) 31.4 ABG / Lab / Microbiology Data 07/19/23 08:38 07/19/23 08:38 Laboratory: Laboratory Results - last 24 hr 07/19/23 16:21: POC Glucose 114 H 07/19/23 20:13: POC Glucose 127 H 07/20/23 06:29: POC Glucose 99 07/20/23 12:09: POC Glucose 129 H Microbiology: Microbiology 07/05/23 08:30 Swab (Method) Nasal Screen MRSA/MSSA - Final D/C Instructions May shower in (days): 5 May resume sexual activity in: 4-6 weeks Meaningful Use Info Meaningful Use Diagnoses (Choose all that apply): None applicable Discharge Plan Admission Admit Date/Time: 07/18/23 10:43 Primary Reason for Your Visit: dolores surgery Attending Provider: Ventura Godoy Primary Care Provider: Marshall Bear Consulting Providers: Dimas Clinton Mark Discharge Orders/Prescriptions Prescriptions: No Action multivitamin Tablet 1 tab PO DAILY (DME) handicap placard See Rx Instructions .Route .MEDSUPPLY Qty: 1 0RF Rx Instructions: fatique , pain in right knee , oteoarathritis naproxen sodium [Aleve] 220 mg capsule 220 mg PO BID PRN (Reason: Pain) aspirin 81 MG tablet,delayed release (DR/EC) 81 mg PO DAILY baclofen 10 MG tablet 10 mg PO PRN PRN (Reason: Muscle Spasm) gabapentin 100 MG capsule 200 mg PO TID oxycodone 5 mg capsule 5 mg PO Q8H omeprazole 40 mg capsule,delayed release(DR/EC) 40 mg PO DAILY acetaminophen 500 mg capsule 1,000 mg PO Q6H PRN (Reason: pain) albuterol sulfate 90 mcg/actuation HFA aerosol inhaler 1 - 2 puff INHALATION Q4H PRN PRN (Reason: Wheezing) Qty: 8.5 3RF (DME) FreeStyle Lite Strips Strip See Rx Instructions .Route Qty: 100 3RF Rx Instructions: Twice daily (DME) blood-glucose meter [FreeStyle Lite Meter] Kit See Rx Instructions .Route Qty: 1 0RF Rx Instructions: Test twice daily atorvastatin 40 mg tablet 40 mg PO QHS Qty: 90 3RF Hold Instructions: 10/01/21- Myalgia and sleep issues fluticasone propionate 50 mcg/actuation spray,suspension 1 - 2 spray intranasal BID PRN (Reason: allergies, congestion) Qty: 16 3RF Rx Instructions: administer into each nostril; 2 sprays in each nostril for the first week metformin 500 mg tablet 500 mg PO BID Qty: 180 3RF trazodone 50 mg tablet 50 - 100 mg PO QHS Qty: 90 3RF linaclotide 72 mcg capsule 72 mcg PO DAILY Qty: 90 3RF Referrals / Follow Up: Marshall Bear MD [Primary Care Provider] - Disposition Disposition (needs filled in before D/C Order can be placed): Home, Self Care 07/20/23 1413 <Electronically signed by Ventura Godoy DO> Cosigner Signature (if applicable): CC: Dr. Marshall Bear MD; Dr. Ventura Godoy DO~ Signed [facility] Work Phone: 1(277) 701-926312-07-2023 Discharge summary Author Ventura Godoy [facility] July 20, 2023 4:00pm Note Date/Time July 20, 2023 2 :10pm [facility] Medical Records Department [address] [place] [address] Instructions for Home/Discharge Instructions 07/20/23 1408 MR#: [id number] Acct: [id number] Name: JARET BATES Rep #:[id number] : 1955 68 From: Ventura Fournier PCP: Dr. Marshall Bear MD Status:ADM IN Discharge Instructions Activity May shower in (days): 5 May resume sexual activity in: 4-6 weeks Lifting Restrictions: 15# Dressing / Incision Remove Dressing in: 4 days Follow Up Care Test Results: Test results from this visit will be discussed in further detail at your follow- up appointment, if applicable. Discharge Plan Admission Admit Date/Time: 07/18/23 10:43 Primary Reason for Your Visit: dolores surgery Attending Provider: Ventura Godoy Primary Care Provider: Marshall Bear Consulting Providers: Dimas Clinton; Vipul Vazquez Discharge Orders/Prescriptions Prescriptions: No Action multivitamin Tablet 1 tab PO DAILY (DME) handicap placard See Rx Instructions .Route .MEDSUPPLY Qty: 1 0RF Rx Instructions: fatique , pain in right knee , oteoarathritis naproxen sodium [Aleve] 220 mg capsule 220 mg PO BID PRN (Reason: Pain) aspirin 81 MG tablet,delayed release (DR/EC) 81 mg PO DAILY baclofen 10 MG tablet 10 mg PO PRN PRN (Reason: Muscle Spasm) gabapentin 100 MG capsule 200 mg PO TID oxycodone 5 mg capsule 5 mg PO Q8H omeprazole 40 mg capsule,delayed release(DR/EC) 40 mg PO DAILY acetaminophen 500 mg capsule 1,000 mg PO Q6H PRN (Reason: pain) albuterol sulfate 90 mcg/actuation HFA aerosol inhaler 1 - 2 puff INHALATION Q4H PRN PRN (Reason: Wheezing) Qty: 8.5 3RF (DME) FreeStyle Lite Strips Strip See Rx Instructions .Route Qty: 100 3RF Rx Instructions: Twice daily (DME) blood-glucose meter [FreeStyle Lite Meter] Kit See Rx Instructions .Route Qty: 1 0RF Rx Instructions: Test twice daily atorvastatin 40 mg tablet 40 mg PO QHS Qty: 90 3RF Hold Instructions: 10/01/21- Myalgia and sleep issues fluticasone propionate 50 mcg/actuation spray,suspension 1 - 2 spray intranasal BID PRN (Reason: allergies, congestion) Qty: 16 3RF Rx Instructions: administer into each nostril; 2 sprays in each nostril for the first week metformin 500 mg tablet 500 mg PO BID Qty: 180 3RF trazodone 50 mg tablet 50 - 100 mg PO QHS Qty: 90 3RF linaclotide 72 mcg capsule 72 mcg PO DAILY Qty: 90 3RF Referrals / Follow Up: Marshall Bear MD [Primary Care Provider] - Disposition Disposition (needs filled in before D/C Order can be placed): Home, Self Care 07/20/23 1600<Electronically signed by Ventura Godoy DO>Ventura Gdooy DO CC: Dr. Marshall Bear MD; Dr. Vipul Vazquez DO; Dr. Dimas Clinton MD ~ Signed [facility] Work Phone: 1(161) 971-492212-06-2023 Progress note Author Vipul [facility] July 19, 2023 5:58pm Note Date/Time July 19, 2023 5 :58pm [facility] Medical Records Department [address] [place] [address] Progress Note - Hospitalist 07/19/231752 MR#: [id number] Acct: [id number] Name: JARET BATES Rep #:[id number] : 1955 68 From: Vipul Vazquez DO PCP: Dr. Marshall Bear MD Status:ADM IN Location: [facility] [id number] Reason for Visit Reason for Visit: Diagnoses Other intervertebral disc displacement, lumbar region (07/18/23) Encounter for other preprocedural examination (07/18/23) Personal history of other diseases of the musculoskeletal system and connective tissue (07/18/23) Other specified postprocedural states (07/18/23) Subjective Subjective Seen and examined today, he denies any fevers or chills. Objective Data Objective Data Vital Signs: Vital Signs Temp Pulse Resp BP Pulse Ox O2 Del Method O2 Flow Rate 97.9 F 80 16 129/69 H 98 Room Air 4 07/19/23 14:30 07/19/23 14:30 07/19/23 14:30 07/19/23 14:30 07/19/23 14:30 07/19/23 14:30 07/18/23 12:22 Oxygen Flow Rate (L/min) 4 Oxygen Delivery Method Room Air Weight: 99.337 kg Body Mass Index (BMI) 31.4 Intake & Output: Intake and Output for Last 24 Hours 07/17/23 07/18/23 07/19/23 23:59 23:59 23:59 Intake Total 2811.25 / 3211.25 2250 / 2250 Output Total 2200 / 3025 4625 / 4625 Balance 611.25 / 186.25 -2375 / -2375 Lab / Micro Data 07/19/23 08:38 07/19/23 08:38 Labs: Laboratory Results - last 24 hr 07/18/23 16:42: POC Glucose 205 H 07/18/23 20:47: POC Glucose 192 H 07/19/23 05:53: POC Glucose 194 H 07/19/23 08:38: WBC 11.1 H, RBC 4.32 L, Hgb 12.7 L, Hct 38.7 L, MCV 89.6, MCH 29.4, MCHC 32.8, RDW Std Deviation 43.0, RDW Coeff of Frankie 13.2, Plt Count 237, MPV 8.8, Immature Gran % (Auto) 0.500, Neut % (Auto) 77.7 H, Lymph % (Auto) 13.6L, [place] % (Auto) 7.9, Eos % (Auto) 0.1, Baso % (Auto) 0.2, Absolute Neuts (auto)8.6 H, Absolute Lymphs (auto) 1.51, Nucleated RBC % 0, Sodium 141, Potassium 3.8, Chloride 108 H, Carbon Dioxide 28.0, Anion Gap 5, BUN 20 H, Creatinine 0.93, Estim Creat Clear Calc 76.31, Est GFR (MDRD) Af Amer 104, Est GFR (MDRD) Non-Af 86, BUN/Creatinine Ratio 21.6 H, Glucose 170 H, Calcium 8.8 07/19/23 10:57: POC Glucose 160 H 07/19/23 16:21: POC Glucose 114 H Micro: Microbiology 07/05/23 08:30 Swab (Method) Nasal Screen MRSA/MSSA - Final Physical Exam Const alert, oriented x3, no apparent distress, average body habitus and healthy appearing General Appearance: cooperative, well kempt and well developed Orientation / Consciousness: awake, oriented to person, oriented to place and oriented to time HEENT normocephalic, head/scalp atraumatic and moist oral mucous membranes Eyes PERRL, EOMs intact bilaterally and conjunctivae normal Neck supple, no JVD, thyroid normal and no carotid bruits General: trachea midline Resp normal respiratory effort and clear to auscultation bilaterally Auscultation: Negative for rales, rhonchi or wheezes Cardio regular rate, regular rhythm, no murmurs, no rub and no gallops GI normal to inspection, nondistended, normoactive bowel sounds, soft to palpation,non-tender and non-distended Extremity no clubbing, cyanosis or edema Skin no rashes or lesions noted Neuro oriented x3, CN's II-XII intact bilaterally, moves all extremities, no focal motor deficits and no sensory deficits noted Sensorium / Orientation: awake and alert Speech: speech normal Psych affect normal Assessment & Plan Assessment/Plan (1) High cholesterol: PLAN: Plan 1. Hyperlipidemia-patient is on atorvastatin #2 type 2 diabetes-patient is on sliding scale insulin per fingerstick blood sugars #3 GERD-patient is on a PPI #4 disc herniation L4-5 on the left-status post laminectomy L4-5 on the left with discectomy and decompression of L5 nerve root-spinal surgery is participating in his care Total clinical time spent by myself addressing the patient's medical issues, reviewing all of his data, and collaborating with the patient's care team: 25 minutes Charges/Coding Visit Charges Inpatient E&M: 16650 Subs Hosp L1 07/19/23 1758 <Electronically signed by Vipul Vazquez DO> Cosigner Signature (if applicable): CC: ~ Signed [facility] Work Phone: 1(339) 920-734012-06-2023 Progress note Author Ventura Godoy [facility] July 19, 2023 1:09pm Note Date/Time July 19, 2023 1 :09pm [facility] Medical Records Department [address] [place] [address] Progress Note - Orthopedic 07/19/23 1308 MR#: [id number] Acct: [id number] Name: JARET BATES Rep #:[id number] : 1955 68 From: Ventura Fournier PCP: Dr. Marshall Bear MD Status:ADM IN Location: [facility] QS863-2 Subjective Subjective Jaret is doing well on postop day #1. He is lying flat because of the dural leak. He knows that tomorrow we will get him up tomorrow at noon if he is doingwell he can go home. He already reports that his leg pain is gone. He had leg pain even lying down before surgery. Neurologically he is intact in both lower extremities. His dressing is dry. Progress is quite satisfactory. Objective Data Objective Data Vital Signs: Vital Signs Temp Pulse Resp BP Pulse Ox O2 Del Method O2 Flow Rate 97.8 F 83 16 119/67 96 Room Air 4 07/19/23 08:34 07/19/23 09:56 07/19/23 09:56 07/19/23 08:34 07/19/23 09:56 07/19/23 09:56 07/18/23 12:22 Oxygen Flow Rate (L/min) 4 Oxygen Delivery Method Room Air Weight: 219 lb 0.009 oz Body Mass Index (BMI) 31.4 Intake & Output: Intake and Output for Last 24 Hours 07/17/23 07/18/23 07/19/23 23:59 23:59 23:59 Intake Total 2811.25 / 3211.25 2250 / 2250 Output Total 2200 / 3025 1925 / 1925 Balance 611.25 / 186.25 325 / 325 Lab / Micro Data 07/19/23 08:38 07/19/23 08:38 Labs: Laboratory Results - last 24 hr 07/18/23 16:42: POC Glucose 205 H 07/18/23 20:47: POC Glucose 192 H 07/19/23 05:53: POC Glucose 194 H 07/19/23 08:38: WBC 11.1 H, RBC 4.32 L, Hgb 12.7 L, Hct 38.7 L, MCV 89.6, MCH 29.4, MCHC 32.8, RDW Std Deviation 43.0, RDW Coeff of Frankie 13.2, Plt Count 237, MPV 8.8, Immature Gran % (Auto) 0.500, Neut % (Auto) 77.7 H, Lymph % (Auto) 13.6L, [place] % (Auto) 7.9, Eos % (Auto) 0.1, Baso % (Auto) 0.2, Absolute Neuts (auto)8.6 H, Absolute Lymphs (auto) 1.51, Nucleated RBC % 0, Sodium 141, Potassium 3.8, Chloride 108 H, Carbon Dioxide 28.0, Anion Gap 5, BUN 20 H, Creatinine 0.93, Estim Creat Clear Calc 76.31, Est GFR (MDRD) Af Amer 104, Est GFR (MDRD) Non-Af 86, BUN/Creatinine Ratio 21.6 H, Glucose 170 H, Calcium 8.8 07/19/23 10:57: POC Glucose 160 H Micro: Microbiology 07/05/23 08:30 Swab (Method) Nasal Screen MRSA/MSSA - Final 07/19/23 1309 <Electronically signed by Ventura Godoy DO> Cosigner Signature (if applicable): CC: ~ Signed [facility] Work Phone: 1(279) 301-401112-05-2023 Progress note Author Dimas Clinton [facility] July 18, 2023 6:00pm Note Date/Time July 18, 2023 1 :29pm [facility] Medical Records Department [address] [place] [address] Progress Note - Hospitalist 07/18/23 1328 MR#: [id number] Acct: [id number] Name: JARET BATES Rep #:[id number] : 1955 68 From: Dimas cannon MD PCP: Dr. Marshall Bear MD Status:ADM IN Location: [facility] DW960-5 Subjective Subjective 68-year-old male presents to the hospital for an elective discectomy and decompression of his L5 nerve root due to recurrent disc herniation. Doing wellpostoperatively, he does have a cardiac history as well as diabetes but otherwise the majority of his medications appear to be dealing with his back pain issues. His operative case was complicated by a dural leak that was treated intraoperatively Objective Data Objective Data Vital Signs: Vital Signs Temp Pulse Resp BP Pulse Ox O2 Del Method O2 Flow Rate 97.6 F L 58 L 18 133/76 H 98 Nasal Cannula 4 07/18/23 12:22 07/18/23 12:22 07/18/23 12:22 07/18/23 12:22 07/18/23 12:22 07/18/23 12:22 07/18/23 12:22 Oxygen Flow Rate (L/min) 4 Oxygen Delivery Method Nasal Cannula Weight: 219 lb 0.009 oz Body Mass Index (BMI) 31.4 Intake & Output: Intake and Output for Last 24 Hours 07/17/23 07/18/23 07/19/23 03:59 03:59 03:59 Intake Total 1311.25 / 1311.25 Output Total 800 / 800 Balance 511.25 / 511.25 Lab / Micro Data Labs: Laboratory Results - last 24 hr 07/18/23 05:51: POC Glucose 119 H 07/18/23 11:17: POC Glucose 155 H Micro: Microbiology 07/05/23 08:30 Swab (Method) Nasal Screen MRSA/MSSA - Final Radiography Diagnostic Testing: Radiology Impression Spine X-Ray 07/18/23 08:55 IMPRESSION: The localization instrument is seen posterior to the L4-L5 disc space level. Electronically Signed: Jaspreet Armstrong MD at 9:20 EST , Spine X-Ray 07/18/23 09:25 IMPRESSION: The localization instrument is seen posterior to the L4-L5 disc space level. Electronically Signed: Jaspreet Armstrong MD at 9:54 EST , Physical Exam Narrative General: Alert, Oriented x3, Cooperative, No apparent distress HEENT: Atraumatic, PERRLA, EOMI, Normocephalic Oral: Moist Mucosa Neck: Supple, No JVD Lungs: Diminished, Normal air movement, No rhonchi, No wheeze, No rales Cardiovascular: Regular rate, Regular Rhythm, Normal S1, Normal S2, No murmurs Abdomen: Soft, Non Tender, Non-Distended, No Hepato-splenomegaly Extremities: No edema, Capillary Refill Less than 3 Seconds Skin: Dressing CDI Musculoskeletal: No Tenderness to Palpation of Joints or Extremities Neurological: Cranial nerves II-XII grossly intact, Motor Exam 5/5 strength throughout, Sensory exam intact to light touch and pain Psych/Mental Status: Normal Affect, Appropriate Assessment & Plan Assessment/Plan (1) Herniated nucleus pulposus, L4-5 left: (2) Status post discectomy for herniated nucleus pulposus: PLAN: Plan 1. Status post L4-5 laminectomy and discectomy for recurrent disc herniation and stenosis on 07/18/2023 ? Pain management from primary ? PT/OT ? Because of his dural leak he is currently not to get out of bed 2. CAD status post CABG/HTN/HLD ? Blood pressures are stable ? Can resume his home blood pressure medications ? We will monitor make adjustments as necessary 3. DM2 ? Continue with metformin ? Accu-Cheks ACHS ? Sign scale insulin ? We will monitor make adjustments as necessary 4. GERD ? Stable ? Continue with PPI DVT: SCDs Charges/Coding Visit Charges Inpatient E&M: 68081 Subs Hosp L2 07/18/23 1800 <Electronically signed by Dimas Clinton MD> Cosigner Signature (if applicable): CC: ~ Signed [facility] Work Phone: 1(250) 463-538612-05-2023 Procedure [facility] 07-17-2023 History and physical note Author Ventura Godoy [facility] July 17, 2023 2:14pm Note Date/Time July 17, 2023 2 :14pm [facility] Medical Records Department [address] [place] [address] History & Physical Exam 07/17/23 1413 MR#: [id number] Acct: [id number] Name: JARET BATES Rep #:[id number] : 1955 68 From: Ventura Fournier PCP: Dr. Marshall Bear MD [place] [facility] [place] [facility] [place] and Physical [id number] Acct: [id number] Name: JARET BATES Rep #: [id number] : 1955 Provider: Dr. Ventura Godoy DO Age/Sex: 68/M Location: [facility] [place] Status: Signed Intake Vital Signs 12/20/2305:28 05/11/2317:57 Height 5 ft 10 in 5 ft 10 in Intake Visit Reasons: CERVICAL SINE Chief Complaint: cervical spine/ low back Is patient in pain?: Yes (low back ) Pain scale (1-10): 5 Allergies adhesive tape Allergy (Verified 05/12/23 08:16) RashIodinated Contrast Media Adverse Reaction (Mild, Verified 05/12/23 08:16) unknownsertraline [From Zoloft] Adverse Reaction (Verified 05/12/23 08:16) Unknown Medications aspirin 81 mg tablet,delayed release 81 mg PO DAILY HEART HEALTH 12/23/15 [History Confirmed 05/12/23] multivitamin 1 tab PO DAILY 07/09/19 [History Confirmed 05/12/23] baclofen 10 mg tablet 10 mg PO PRN PRN Muscle Spasm 05/14/20 [History Confirmed 05/12/23] gabapentin 100 mg capsule 200 mg PO TID 05/14/20 [History Confirmed 05/12/23] ketoconazole 2 % shampoo 1 applic topical DIRECTED PRN SCALP 10/01/21 [History Confirmed 05/12/23] naproxen sodium 220 mg capsule (Aleve) 220 mg PO BID PRN Pain 02/04/22 [History Confirmed 05/12/23] albuterol sulfate 90 mcg/actuation aerosol inhaler 1 - 2 puff inhalation Q4H PRNPRN Wheezing #8.5 grams 04/21/22 [Rx Confirmed 05/12/23] handicap placard #1 ea 04/21/22 [Rx Confirmed 05/12/23] pantoprazole 40 mg tablet,delayed release (Protonix) 40 mg PO DAILY #30 tabs 09/14/22 [Rx Confirmed 05/12/23] blood sugar diagnostic (FreeStyle Lite Strips) #100 ea 09/15/22 [Rx Confirmed 05/12/23] blood-glucose meter (FreeStyle Lite Meter kit) #1 ea 09/15/22 [Rx Confirmed 05/12/23] linaclotide 72 mcg capsule 72 mcg PO DAILY IBS #90 caps 02/06/23 [Rx Confirmed 05/12/23] atorvastatin 40 mg tablet 40 mg PO QHS CHOLESTEROL #90 tabs 04/27/23 [Rx Confirmed 05/12/23] fluticasone propionate 50 mcg/actuation nasal spray,suspension 1 - 2 spray intranasal BID PRN allergies, congestion #16 grams 04/27/23 [Rx Confirmed 05/12/23] metformin 500 mg tablet 500 mg PO BID DIABETES #180 tabs 04/27/23 [Rx Confirmed 05/12/23] trazodone 50 mg tablet 50 - 100 mg (1 - 2 x 50 mg) PO QHS sleep #90 tabs 04/27/23 [Rx Confirmed 05/12/23] oxycodone 5 mg capsule 5 mg PO Q8H 05/10/23 [History Confirmed 05/12/23] lidocaine 5 % topical patch 2 patch topical DAILY #15 ea 05/11/23 [Rx Confirmed 05/12/23] methylprednisolone 4 mg tablets in a dose pack (Medrol (Raphael)) 4 mg PO DAILY 6 days #6 tabs 05/12/23 [Rx Confirmed 05/12/23] PFSH Medical History Agent orange exposure Alcohol use Ambulates with cane Arthritis Arthropathy of cervical facet joint Asthma Atherosclerotic heart disease of [place] coronary artery without angina pectoris Back pain Cancer Cardiology follow-up encounter Cervical spondylosis Chewing tobacco nicotine dependence Chondromalacia of both patellae Chondromalacia, left knee Chondromalacia, right knee COVID-19 virus detected (11/19/20) Degeneration of cervical disc without myelopathy Degeneration of intervertebral disc of lumbosacral region Diabetes Dietary restriction Essential (primary) hypertension Fusion of spine, cervical region High cholesterol History of echocardiogram History of IBS History of pain when walking History of steroid therapy History of stress test Hyperlipemia Hypertension Injury of head and neck Left knee DJD Non-smoker Nonrheumatic aortic (valve) stenosis with insufficiency Obesity Opioid dependence Prostate disease Radiculopathy of lumbosacral region Restless legs Right knee DJD Shortness of breath on exertion Smokeless tobacco use Spinal stenosis of lumbosacral region Spondylosis of lumbosacral region without myelopathy or radiculopathy Syncope Tear of medial meniscus of right knee Type 2 diabetes mellitus Wears hearing aid Surgical History H/O cervical spine surgery (08/2020) H/O coronary artery bypass surgery (09/14/11) History of back surgery History of carpal tunnel release History of herniorrhaphy History of lateral meniscus repair of right knee (~2021) History of left heart catheterization (09/09/11) Hx laparoscopic cholecystectomy (~11/2022) Hx of bilateral cataract extraction Family History Brother Heart disease Myocardial infarction 60's CAD (coronary artery disease)Father Myocardial infarction 65 CAD (coronary artery disease) Social History Smoking Status: Never smoker alcohol intake: current alcohol intake frequency: a few times a month substance use type: does not use caffeine: Yes Type: coffee Number of servings: 2 HPI CERVICAL SINE Chief Complaint: cervical spine Details: Parts of this documentation were recorded by a scribe, this documentation accurately reflects the service provided and the decisions made by me, Dr. Ventura Godoy, DO 05/12/23 0811. JARET BATES is a 68 year old M here today for cervical spine MRI review. Pt. isalso c/o low back pain. He advises he was in the ED last night where a CT scan was done and he was given steroids and pain meds. He states his pain starts in his left low back and radiates down his left leg to his left foot and toes. He comes in with a new problem. Around 2013 or so he had low back surgery per obviously a decompression. Darting about 10 days ago or so he began having painin his left buttocks and down his left leg and what is described as a possible L5 dermatome. The pain has been terrific he has been seen in the ER. He says that he cannot live like he is. Gave him pain medicine in the emergency room. He states that he does not even touch the pain. Examination he walks bent forward he cannot straighten up because it makes the pain down the leg worse. Decreased patellar reflex on the left as compared to their the right however that could have been old from before the surgery even. Reasonable strength in the most major muscle groups of both lower extremities. He has no long tract signs. He he is due to see Dr. Diamond on Monday for an injection. I told him to keep the appointment. In the meantime I will start him on a Medrol Dosepak today. In addition we will order an MRI scan of the lumbar spine with and without contrast to be done sometime after Dr. Garcia's injection. I would like to visit with him after the MRI scan is done. Coding Level of Care Code Off vis,est,level 3 Diagnoses Acute lumbar radiculopathy M54.16 07/17/23 1414 <Electronically signed by Ventura Godoy DO> Cosigner Signature (if applicable): CC: Dr. Marshall Bear MD; Dr. Ventura Godoy DO~ Signed [facility] Work Phone: 1(648) 967-294010-02-2023 Procedure [facility] 05-02-2023 Discharge summary Author Vin Dawkins [facility] May 02, 2023 12:52pm Note Date/Time May 02, 2023 12:52pm [facility] Physical Therapy [address] [place] [address] / REHABILITATION SERVICES DISCHARGE SUMMARY MR#: [id number] Acct: [id number] Name: JARET BATES Rep #: [id number] : 1955 68 From: Vin Dawkins DPT, OCS, CSCS Referring DrJulianne: Dr. Ventura Godoy DO Status: REG RCR Insurance: [employer] SELF PAY INSURANCE Patient Information Patient Information: JARET BATES was seen in my office for initial evaluation on 04/06/23. The following Plan of Care was established for this patient: POC Established Initial Frequency: 2x /Week Initial Duration: 4-6 Weeks Anticipated Interventions Patient/Client Instruction: Educate patient on: Condition and Plan of Care For the Purpose of:: To decrease pain, To improve nutrient delivery to tissue, To increase tolerance to activity/condition/position, To improve gait and locomotor functions, To improve health of tissue and To improve safety with gait Therapeutic Exercise to Include: Strength training, Balance training, Postural training, Flexibilty training and Scapular Strength/Stabilization For the Purpose of:: To decrease pain, To increase ROM, To improve nutrient delivery to tissue, To increase tolerance to activity/condition/position, To improve gait and locomotor functions and To improve safety with gait Manual Therapy Techniques to Include: Petrissage and Soft tissue mobilization For the Purpose of:: To increase ROM and To improve nutrient delivery to tissue TENS: Yes Thermo therapy (hot pack): Yes For the Purpose of:: To decrease pain Last Seen Last Seen: This patient was last seen in our office 04/14/23. Pertinent comments regardingtheir Physical therapy will appear below: Pt seen for two visits of POC and was mainly treated with soft tissue mobilization and balance. he returned to doctor with worsening VICTORIA and was ordered to hold therapy and get an MRI. Therefore at this point, I will discontinue. At this point I will be discontinuing this patient from physical therapy. I would be happy to see this patient again in the future if found appropriate by the physician. Thank you! Vin Dawkins DPT, OCS, CSCS Balance/Gait/Functional tests Balance/Special Test Scores Functional Gait Assessment Score: 20 % Disability: 33.3400 CATSIB Score (Max score 120 seconds): 73 Oswestry Low Back Score: 20 <Electronically signed by Vin Dawkins DPT, OCS, CSCS> 05/02/23 1252 CC: Dr. Marshall Bear MD; Dr. Ventura Godoy, DO ~ EBG Signed [facility] Work Phone: 1(714) 147-941804-07-2023 NoteHNO ID: [id number] Author: Edilia Hunter PA-C Service: ? Author Type: Physician Furnace Mechanic Type: Progress Notes Filed: 11/22/2022 4:57 PM Note Text: FOLLOW UP VISIT - CHOLECYSTECTOMY NAME: Jaret Bates CLINIC NO.: [id number] DATE OF SERVICE: 11/18/2022 : 1955 REFERRING PHYSICIAN: Marshall Bear MD Jaret is a patient I am following for a complaint of right upper quadrant pain. Dr. Pena performed a laparoscopic cholecystectomy with intraoperative cholangiogram [...] ?C (98 ?F), height 177.8 cm (5' 10), weight 96.6 kg (213 lb), SpO2 95 [...] instructed to follow-up with me as needed. [facility] Instructions* Patient Instructions* Edilia Hunter PA-C - 11/18/2022 10:01 AM EDT The following instructions are important for you related to your office visit today with the [facility] General Surgeons. INSTRUCTIONS FOLLOWING YOU RECENT [...] you should contact our office immediately @ [phone] and ask to be transferred to the General Surgery department. documented in [facility]Tr[facility]04-07-[facility]23 History of Present illness Narrative* Edilia Hunter PA-C - 11/18/2022 9:44 AM EDT FOLLOW UP VISIT - CHOLECYSTECTOMY NAME: Jaret Ch [facility] NO.: [id number] DATE OF SERVICE: 11/18/2022 : 1955 REFERRING PHYSICIAN: Marshall Bear MD Jaret is a patient I am following for a complaint of right upper quadrant pain. Dr. Pena performed a laparoscopic cholecystectomy with intraoperative cholangiogram on 11/11/22. Pathology showed chronic cholecystitis with cholelithiasis. The patient currently notes no major concerns. Patient did note episode of severe back pain on 11/14 for which he had ended up calling EMS-was takento ED and diagnosed with muscle spasm. He was prescribed a muscle relaxer and is now feeling much better. His appetite has been good. he denies fever, chills or abdominal pain. he does note some mild incisional discomfort. VITALS: Blood pressure 140/78, pulse 89, temperature 36.7 C (98 F), height 177.8 cm (5' 10), weight 96.6 kg (213 lb), SpO2 95 %. On examination, the abdomen is benign. The incisions are healing well without signs of infection orinflammation. Assessment IMPRESSION: status post laparoscopic cholecystectomy with [...] of gallbladder with chronic cholecystitis without obstruction (primaryencounter diagnosis) Return to Clinic: The patient is instructed to follow-up with me as needed. Edilia Hunter PA-C documented in this encounterTrumbull [facility]04-07-2023 Nurse Note* Clara Lira RN - 11/18/2022 9:20 AM EDT REVIEW OF SYSTEMS: General: The patient denies [...] 2022 Clara Lira RN documented in this encounterTrumbull [facility]04-03-2023 Miscellaneous Notes* Telephone Encounter - Carol Vega RN - 11/14/2022 4:33 PM EDT Patient was evaluated at [facility] ER, CT scan of the abdomen and pelvis was completed. Diagnosed with back spasm. Carol Vega RN * Telephone Encounter - Dayron Orozco LPN - 11/14/2022 10:45 AM EDT Called patient back to updated. Alethea stated that she called 911 and ambulance was there. * Telephone Encounter - Edilia Hunter PA-C - 11/14/2022 10:38 AM EDT Yes, agree with urgent ED evaluation for severe abdominal pain * Telephone Encounter - Dayron Orozco LPN - 11/14/2022 10:32 AM EDT Patient called back, patient is yelling in pain, advised patient to go to ER. [facility] informed them yes [facility] will however Dr Pena is not at that hospital andis doing surgeries in [place] today. voiced understanding. Alethea # [phone] * Telephone Encounter - Carol Vega RN - 11/14/2022 8:24 AM EDT Jaret's , Alethea, called. Jaret had laparoscopic cholecystectomy surgery on November 11. [...] of the pain. They use [facility] in [place]. Alethea also wanted us to know that they tried reaching out, over the weekend to the provider number that is on their discharge paperwork, but that number is to [facility] and the automatic wheel line operator refused to page Dr. Pena, stating that he does not work at their facility. I apologized to Alethea, stating that I would reach out and see who can update that paperwork and correct that error. Carol Vega RN documented in this encounterTrumbull [facility] Medical Center03-31-2023 NoteHNO ID: [id number] Author: Joni Crooks RN Service: Nursing Author Type: Registered Nurse Type: Nursing Progress Note Filed: 11/11/2022 12:59 PM Note Text: PT up to bathroom, ambulated with close supervision, tolerated well. Voided q/s returned to [facility]03-31-2023 NoteHNO ID: [id number] Author: RONALD Unger Service: Anesthesiology Author Type: Student Type: Anesthesia Procedure Notes Filed: 11/11/2022 10:15 AM Note Text: ANESTHESIOLOGY PROCEDURE NOTE Airway General Information Procedure Start Time/Medication Administration: 11/11/2022 9:53 AM Patient location during procedure: OR Timeout Performed Pre-procedure: timeout performed Consent Obtained: Yes Patient identity confirmed: arm band, care steam bone press tender and patient Staffing Anesthesiologist: Evita Morillo MD [...] not difficult SIGNATURE: RONALD Unger PATIENT NAME: Jaret Bates DATE: November 11, 2022 TIME: 10:14 AM CSN: [id number] Miscellaneous Notes* Telephone Encounter - Araceli Davis LPN - 11/09/2022 2:15 PM EDT Received last office visit and cardiac testing from [facility]. Copy made for Nitish Norris CNP and original sent to [facility]. Araceli Davis LPN * Telephone Encounter - Araceli Davis LPN - 11/09/2022 9:30 AM EDT Called and spoke with Katerina at [facility], she will fax last office visit and cardiac records. Araceli Davis LPN * Telephone Encounter - Araceli Davis LPN - 11/09/2022 9:22 AM EDT Received labs from Dr. Bear's office. Copy made for Nitish Norris CNP and original sent to [email or web address] through [employer]. Araceli Davis LPN * Telephone Encounter - Araceli Davis LPN - 11/09/2022 8:54 AM EDT Received a call from [facility] stating Dr. Mckeon office has moved and new phone number is [phone]. I called Dr. Linda craig office and spoke with Katrina. Requested labsespecially A1c to be faxed, fax number given. Araceli Davis LPN * Telephone Encounter - Araceli Davis LPN - 11/09/2022 8:26 AM EDT Called and left message at Dr. Mathews office requesting patients most recent labs especially A1c to be faxed. Callback number and fax number given. Araceli Davis LPN * Telephone Encounter - Araceli Davis LPN - 11/09/2022 8:22 AM EDT Called and left message with Katerina at [facility] to return call. Callback number given. Araceli Davis LPN * Telephone Encounter - Nitish Norris APRN.DAMON - 11/09/2022 6:18 AM EDT Please request most recent labs, especially A1c from PCP's office. And cardiac records, last OV from [facility]. DOS 11/11/2022 documented in this encounterTrumbull [facility]03-24-2023 History and physical note * Nitish Norris APRN.DAMON - 11/04/2022 11:15 AM EDT HISTORY AND PHYSICAL EXAMINATION SERVICE DATE: 11/04/2022 SERVICE TIME: 6:17 AM PRIMARY CARE PHYSICIAN: Marshall Bear MD REASON FOR VISIT: Jaret Bates is a 67 year old male who is scheduled for Procedure(s): LAPAROSCOPIC CHOLECYSTECTOMY WITH GRAMS (N/A) at the request of Dr. Jose Juan Pena MD for consultation. My final recommendation will [...] COVID-19 original vaccine, age 12+ yr, monovalent (Petenko- BIONTECH - PURPLE TOP) 11/12/2020 Imm Admin: COVID-19 original vaccine, age 12+ yr, monovalent (PFIZER- BIONTECH - PURPLE TOP) 10/22/2020 Imm Admin: COVID-19 original vaccine, age 12+ yr, monovalent (PFIZER- BIONTECH - PURPLE TOP) CHIEF COMPLAINT: Pre-op exam HPI: Jaret Bates is a 67 year old seen for PAC due to scheduled above surgery because of gallstones. 10/20/2022, Dr. Pena HPI: Jaret is a 67 year old male with a complaint of abdominal pain.the patient was initially seen by Edilia Hunter in July 2022 for evaluation for screening colonoscopy. At that time she noted: The patient is a 67 year old male referred for endoscopy. Jaret notes a history of colon polyp and is due for surveillance colonoscopy. Patient denies any change in bowel habits, weight changes, blood in stools, black tarry stools or abdominal pain. Denies family history of colon issues. The patient notes no upper GI complaints. Jaret has undergone prior endoscopy. Last colonoscopy 06/20/[address] Pena under conscious sedation with removal of an adenomatous colon polyp, five year follow-up recommended. I was contacted by the patient's primary care physician Dr. Pedro that after being evaluated by Edilia Hunter the patient had an ER visit on [...] to his back to the been present for2 weeks. I performed upper and lower endoscopy [...] fevers. Neurological: No history of TIA's, stroke, RETAIL AGENT tumor, impaired sensorium, hemiplegia, paraplegia orquadraplegia. No neurological symptoms or problems. Respiratory: Positive for: asthma and COPD. Negative for: pneumonia within 6 weeks, tobacco use, URI < 2 weeks and obstructive sleep apnea. Cardiovascular: Positive for: anticoagulation therapy (ASA), CAD, hyperlipidemia (on rx) and open heart surgery Negative for: arrhythmia, atrial fibrillation, chest pain, CHF, congenital heart defect, DVT/PE, hypertension, recent [place], murmur/valvular heart disease, PVD and valve surgery. [...] for: chronic anti-coagulation/platelet meds. Patient is on anti- coagulation/platelet medication(s): Aspirin. Negative for: anemia, bruises/bleeds easily and transfusion of at least 4 units within 72 hours prior to surgery. Oncology: Skin cancer s/p excision Psych: No history of psychiatric symptoms or problems. Musculoskeletal: +h/o cervical fusion +h/o lumbar laminectomy Positive for: joint pain. Skin: +rosacea, following [facility] PAST MEDICAL HISTORY Diagnosis Date Asthma CAD [...] 06/16/2017 Added automatically from request for surgery [id number] Impaired fasting glucose 07/15/2016 Myalgia and myositis, [...] 2 Puffs as instructed every 4 hours asneeded for Wheezing/Shortness of Breath. Taking Yes aspirin, [...] A1C Date Value 04/09/2019 Test sent to [facility]. % 11/05/2018 Test sent to [facility]. % 06/28/2018 Test sent to [facility]. % 07/17/2017 Test sent to [facility]. % 06/23/2016 Test sent to [facility]. % 06/23/2016 6.1 No results found for this or any previous visit (from the past 8760 hour(s)). No results found for this or any previous visit (from the past 33122 hour(s)). Assessment Patient has the following medical conditions which may affect nereida-operative course: Other hyperlipidemia Assessment: c/w statin CAD (coronary artery disease) Assessment: CABG x3, 2011, following [facility], daily ASA, denies CP, palpitations [...] equal to 35 kg/m^2 STOP-Bang Score: 4 [id number] Score: Age: 65-74 Sex: male CHF history: No Hypertension history: Yes Stroke/TIA/thromboembolism history: No Vascular disease history: Yes Diabetes history: Yes [id number] Score: 4 ARISCAT Score: Age: 51-80 Preoperative [...] Negron present: no Lip Bite Test: II Microretrognathia/Micronagthia/Recessed Chin: No DENTAL Dental findings: teeth intact. II - ANESTHESIA PLAN ASA Score: 3 Anesthetic Plan: other Anesthetic plan additional comments: *PACC/TCI - anesthesia choice. Beta Jey Monitoring Plan Post Procedure Analgesic Plan Informed [...] instructions and voices comprehension and compliance. SIGNATURE: Nitish Norris APRN.CNP PATIENT NAME: Jaret Bates DATE: November 04, 2022 TIME: 11:15 AM PAGER/CONTACT #: documented in this encounterTrumbull [facility] Center03-24-2023 Instructions* Patient Instructions* Nitish Norris APRN.CNP - 11/04/2022 11:12 AM EDT PATIENT PREOPERATIVE INSTRUCTIONS No ref. provider found has scheduled you for your procedure at this surgery center: [facility]: [phone] -- [address] [facility] [address]. Please read below carefully for your personalized [...] Procedures: - YOU MUST HAVE A RESPONSIBLE TEACHING SPECIALISTS TAKE YOU HOME. A PROFESSOR OF GEOLOGY OR COMMUNITY HEALTH ADVISOR CANNOT BE MADE A RESPONSIBLE TEACHING SPECIALISTS. - We recommend that a responsible person stays with you overnight to take care of you. - You cannot stay in a hotel alone after outpatient surgery. You will not be permitted to have yoursurgery, if you do not have someone to [...] Advance Directive, please fax a copy to [phone] or email to for it to be added to your chart. If you do not have an Advance Directive, you can find the appropriate form and more information at [email or web address]. We recommend that youcomplete the Advance Directive form found on the website and bring it with you the day of your surgery. It can be witnessed and scanned into your chart that day. Nitish Norris APRN.DAMON documented in this encounterTrumbull [facility] Center03-10-2023 NoteHNO ID: [id number] Author: Jose Juan Pena MD Service: ? Author Type: Physician Type: Progress Notes Filed: 10/28/2022 6:18 AM Note Text: HISTORY AND PHYSICAL Jaret Bates 1955 REFERRING PHYSICIAN: Dr. Bear CHIEF COMPLAINT: Abdominal Pain HPI: Jaret is a 67 year old male with a complaint of abdominal pain.the patient was initially seen by Edilia Hunter in July 2022 for evaluation for screening colonoscopy. At that time she noted: The patient is a 67 year old male referred for endoscopy. Jaret notes a history of colon polyp and is due for surveillance colonoscopy. Patient denies any change in bowel habits, weight changes, blood in stools, black tarry stools or abdominal pain. Denies family history of colon issues. The patient notes no upper GI complaints. Jaret has undergone prior endoscopy. Last colonoscopy 06/20/[address] Pena under conscious sedation with removal of an adenomatous colon polyp, five year follow-up recommended. I was contacted by the patient's primary care physician Dr. Pedro that after being evaluated by Edilia Hunter the patient had an ER visit on [...] 06/16/2017 Added automatically from request for surgery [id number] Impaired fasting glucose 07/15/2016 Myalgia and myositis, [...] 5 YRS/> REDUCIBLE 2 (more content not included)...[facility]03-10-2023 History of Present illness Narrative* Jose Juan Pena MD - 10/21/2022 6:34 AM EST HISTORY AND PHYSICAL Jaret Bates 1955 REFERRING PHYSICIAN: Dr. Bear CHIEF COMPLAINT: Abdominal Pain HPI: Jaret is a 67 year old male with a complaint of abdominal pain.the patient was initially seen by Edilia Hunter in July 2022 for evaluation for screening colonoscopy. At that time she noted: The patient is a 67 year old male referred for endoscopy. Jaret notes a history of colon polyp and is due for surveillance colonoscopy. Patient denies any change in bowel habits, weight changes, blood in stools, black tarry stools or abdominal pain. Denies family history of colon issues. The patient notes no upper GI complaints. Jaret has undergone prior endoscopy. Last colonoscopy 06/20/[address] Pena under conscious sedation with removal of an adenomatous colon polyp, five year follow-up recommended. I was contacted by the patient's primary care physician Dr. Pedro that after being evaluated by Edilia Hunter the patient had an ER visit on [...] to his back to the been present for2 weeks. I performed upper and lower endoscopy [...] 06/16/2017 Added automatically from request for surgery [id number] Impaired fasting glucose 07/15/2016 Myalgia and myositis, [...] 2 Puffs as instructed every 4 hours asneeded for Wheezing/Shortness of Breath. 1 Inhaler 5 [...] 400 Units by mouth once daily. (Patient nottaking: Reported on 10/20/2022) fluticasone (FLONASE) 50 mcg/actuation nasal spray Use 2 Sprays in each nostril once daily. (Patient not taking: No sig reported) 1 Bottle 5 tamsulosin ER (FLOMAX) 0.4 mg cap Take 1 capsule by mouth daily at bedtime. (Patient not taking: Nosig reported) 30 capsule 11 calcium Carbonate 300 [...] resp. rate 12, height 177.8 cm (5' 10), weight 100.2 kg (221 lb), SpO2 96 %. Body mass index is 31.71 kg/m . HEENT: Normal cephalic, ataumatic, pupils are equally round, sclera are anicteric, mucous membranesare moist, oropharynx is clear. Neck has no [...] opportunity to ask questions concerning the planned procedure.The patient freely consents to the planned procedure. Planned Procedure: LAPAROSCOPIC CHOLECYSTECTOMY WITH INTRAOPERATIVE CHOLEANGIOGRAM - 16486-284 Planned antibiotic: Ancef 2gm IVPB business analysis professional to OR SCDs needed - Yes Furnace Mechanic Needed - No Diagnoses: (K80.20) Calculus of gallbladder without cholecystitis without obstruction (primary encounter diagnosis) (R10.11) RUQ pain My findings have been communicated to via shared medical record. This note will be forwarded to No primary care provider on file.. Jose Juan Pena MD documented [facility]Tr[facility] Miscellaneous Notes* Telephone Encounter - Dayron Orozco LPN - 10/20/2022 9:40 AM EST Called and spoke to Lin[facility], CT scan dept. Pushed image per Dr Pena request. Dayron Orozco LPN documented in this encounterTrumbull [facility]02-24-2023 NoteHNO ID: [id number] Author: Edilia Hunter PA-C Service: ? Author Type: Physician Furnace Mechanic Type: Progress Notes Filed: 10/13/2022 2:07 PM Note Text: FOLLOW UP VISIT - ENDOSCOPY NAME: Jaret Bates [facility] NO.: [id number] DATE OF SERVICE: 10/07/2022 : 1955 REFERRING PHYSICIAN: No primary care provider on file. Jaret is a patient I am following for colon polyps and need for surveillance colonoscopy. In interim since patient's consult visit, was seen by PCP and had EGD ordered for upper GI complaints . Dr. Pena performed upper and lower endoscopy on 09/27/22. [...] which included preparing to see the patient, [id number] patient care, completing clinical documentation, obtaining and/or reviewing separately obtained history, counseling and educating the patient/family/caregiver, independently interpreting results (not separately reported), and communicating results to the patient/family/caregiver. [facility]02-24-2023 Instructions* Patient Instructions* Edilia Hunter PA-C - 10/07/2022 4:02 PM EST -Trial [...] office visit today with the [facility] General Surgeons. INSTRUCTIONS FOLLOWING A NORMAL COLONOSCOPY W/ HISTORY OF POLYP 5YR I discussed with you the findings of your colonoscopy. Since there were no worrisome abnormalities,I recommend you undergo repeat endoscopic screening every [...] epigastric pain, burning, difficulty swallowing or food stickingshould be relayed to your physician. Feeling full early after eating, or black, tarry, foul smelling stools are also worrisome. If you have any difficulties or concerns, you should contact our office immediately. If you note any additional difficulties, questions, or concerns, you should contact our office immediately @ [phone] and ask to be transferred to the General Surgery department. documented in this encounterTrumbull [facility]02-24-2023 History of Present illness Narrative* Edilia Hunter PA-C - 10/07/2022 3:33 PM EST FOLLOW UP VISIT - ENDOSCOPY NAME: Jaret Bates [facility] NO.: [id number] DATE OF SERVICE: 10/07/2022 : 1955 REFERRING PHYSICIAN: No primary care provider on file. Jaret is a patient I am following for colon polyps and need for surveillance colonoscopy. In interim since patient's consult visit, was seen by PCP and had EGD ordered for upper GI complaints . Dr. Pena performed upper and lower endoscopy on 09/27/22. [...] with the patient, and the patient has hadthe opportunity to ask questions and have questions [...] which included preparing to see the patient, [id number] patient care, completing clinical documentation, obtaining and/or reviewing separately obtained history, counseling and educating the patient/family/caregiver, independently interpretin g results (not separately reported), and communicating results to the patient/family/caregiver. Edilia Hunter PA-C documented in this encounterTrumbull [facility]02-14-2023 Nurse Note* Clementina Burnette RN - 09/27/2022 10:39 AM EST Oxygen applied at 2L per NC due to pulse ox readings 89-91% on room air. Patient resting comfortably on left side. * Clementina Burnette RN - 09/27/2022 10:30 AM EST Patient arrived in phase II via cart left lateral position, eyes closed but open to verbal stimuli,skin warm and dry, respirations regular and unlabored. Abdomen soft and non distended. Denies pain or nausea. Resting comfortably on left side. documented in this encounterTrumbull [facility] Center02-14-2023 History and physical note * Jose Juan Pena MD - 09/27/2022 8:15 AM EST UPDATED PROCEDURAL SEDATION HISTORY AND PHYSICAL EXAMINATION SERVICE DATE: 09/27/2022 SERVICE TIME: 9:37 AM PHYSICAL EXAM MUST BE COMPLETED ON ADMISSION PROCEDURE: Procedure Indications: The History and Physical (completed in the past 30 days) has been reviewed and the patient has beenexamined. The contents accurately reflect the patient's condition [...] can be found in the attached. SIGNATURE: Jose Juan Pena MD PATIENT NAME: Jaret Bates DATE: September 27, 2022 TIME: 9:37 AM Source Note - Jose Juan Pena MD - 09/27/2022 8:15 AM EST Images from the original note were not included. HISTORY AND PHYSICAL Jaret Bates 1955 REFERRING PHYSICIAN: Edilia Hunter PA-C CHIEF COMPLAINT: Consult (Colonoscopy/) HPI: The patient is a 67 year old male referred for endoscopy. Jaret notes a history of colon polypand is due for surveillance colonoscopy. Patient denies any change in bowel habits, weight changes,blood in stools, black tarry stools or abdominal pain. Denies family history of colon issues. The patient notes no upper GI complaints. Jaret has undergone prior endoscopy. Last colonoscopy 06/20/[address] Pena under conscious sedation with removal of an [...] 06/16/2017 Added automatically from request for surgery [id number] Impaired fasting glucose 07/15/2016 Myalgia and myositis, [...] SPEC 07/06/10 Normal COLONOSCOP W/ OR W/O [facility] SPEC 06/20/2017 Colonoscopy EGD W/O [facility] SPECIMEN [...] 2 Puffs as instructed every 4 hours asneeded for Wheezing/Shortness of Breath. multivitamin tablet Take [...] entered by the nurse and reviewed by mt Nursing Notes: Mel Alonso LPN 08/09/2022 1:45 [...] PFSH and ROS obtained by others. Edilia Hunter PA-C PHYSICAL EXAMINATION: General: The patient is 67 year old male, well nourished, well hydrated in no acute distress. The patient is oriented to time, place, and person. VITALS: There were no vitals taken for this visit. There is no height or weight on file to calculate BMI. HEENT: Normal cephalic, ataumatic, pupils are equally round, sclera are anicteric, mucous membranesare moist, oropharynx is clear. Neck has no [...] Will plan for lower endoscopy. We discussed therisks and benefits of the planned endoscopy. I have informed the patient that complications can occur including failure to complete the endoscopy and perforation. The patient had the opportunity to ask questions concerning the planned endoscopy. My staff has also explained the procedure to the patient in understandable terms and has given the patient printed material concerning the procedure. Thepatient freely consents to surgery. The patient was offered a [facility]. I have counseled the [...] for instructions regarding diabetic medication, which may requireadjustment during bowel preparation and/or day of procedure Diagnoses: (Z12.11) Encounter for screening for malignant neoplasm of colon (primary encounter diagnosis) (Z86.010) Personal history of colonic polyps I spent a total of 25 minutes on the date of the service which included preparing to see the patient, [id number] patient care, completing clinical documentation, obtaining and/or reviewing separately obtained history, performing a medically appropriate examination, and care coordination (not separ ately reported). Edilia Hunter PA-C * Jose Juan Pena MD - 09/27/2022 8:15 AM EST Images from the original note were not included. HISTORY AND PHYSICAL Jaret Bates 1955 REFERRING PHYSICIAN: Edilia Hunter PA-C CHIEF COMPLAINT: Consult (Colonoscopy/) HPI: The patient is a 67 year old male referred for endoscopy. Jaret notes a history of colon polypand is due for surveillance colonoscopy. Patient denies any change in bowel habits, weight changes,blood in stools, black tarry stools or abdominal pain. Denies family history of colon issues. The patient notes no upper GI complaints. Jaret has undergone prior endoscopy. Last colonoscopy 06/20/[address] Pena under conscious sedation with removal of an [...] 06/16/2017 Added automatically from request for surgery [id number] Impaired fasting glucose 07/15/2016 Myalgia and myositis, [...] SPEC 07/06/10 Normal COLONOSCOP W/ OR W/O [facility] SPEC 06/20/2017 Colonoscopy EGD W/O [facility] SPECIMEN W/BX 07/06/10 gastritis EGD W/O [facility] SPECIMEN W/BX 10/07/14 duodenitis, gastritis, esophagitis EGD W/O [facility] SPECIMEN W/BX 09/13/2016 continued inflammation [...] 2 Puffs as instructed every 4 hours asneeded for Wheezing/Shortness of Breath. multivitamin tablet Take [...] entered by the nurse and reviewed by mt Nursing Notes: Mel Alonso LPN 08/09/2022 1:45 [...] PFSH and ROS obtained by others. Edilia Hunter PA-C PHYSICAL EXAMINATION: General: The patient is 67 year old male, well nourished, well hydrated in no acute distress. The patient is oriented to time, place, and person. VITALS: There were no vitals taken for this visit. There is no height or weight on file to calculate BMI. HEENT: Normal cephalic, ataumatic, pupils are equally round, sclera are anicteric, mucous membranesare moist, oropharynx is clear. Neck has no [...] Will plan for lower endoscopy. We discussed therisks and benefits of the planned endoscopy. I have informed the patient that complications can occur including failure to complete the endoscopy and perforation. The patient had the opportunity to ask questions concerning the planned endoscopy. My staff has also explained the procedure to the patient in understandable terms and has given the patient printed material concerning the procedure. Thepatient freely consents to surgery. The patient was offered a [facility]procedure [facility]. I have counseled the [...] for instructions regarding diabetic medication, which may requireadjustment during bowel preparation and/or day of procedure Diagnoses: (Z12.11) Encounter for screening for malignant neoplasm of colon (primary encounter diagnosis) (Z86.010) Personal history of colonic polyps I spent a total of 25 minutes on the date of the service which included preparing to see the patient, [id number] patient care, completing clinical documentation, obtaining and/or reviewing separately obtained history, performing a medically appropriate examination, and care coordination (not separ ately reported). Edilia Hunter PA-C documented in this encounterTr[facility]ull [facility]02-03-2023 Miscellaneous Notes* Telephone Encounter - Fela Ambriz - 09/16/2022 10:46 AM EST EGD added to procedure Fela Ambriz Physical Biochemist * Telephone Encounter - Aspen Sainz - 09/16/2022 9:35 AM EST Pt calling to inform that Dr. Bear had ordered EGD for pt. There is an order in [email or web address] from [facility]. Pt asking if that can be done the same day as the colonoscopy. Please contact patient to confirm date. Aspen Sainz documented in this encounterTr[facility]02-03-2023 Miscellaneous Notes* Telephone Encounter - Jose Juan Pena MD - 09/16/2022 6:21 AM EST Called by patient's PCP Dr. Batista who also is having upper symptoms will add EGD and perform orosco biopsies. * Telephone Encounter - Fela Ambriz - 08/09/2022 1:32 PM EST 09/27/2022 COLON ASC documented in this encounterTrumbull [facility] Center12-27-2022 Nurse Note* Mel Alonso LPN - 08/09/2022 1:43 PM EST REVIEW OF SYSTEMS: General: The patient denies [...] 2016 Mel Alonso LPN documented in this encounterTrumbull [facility]12-27-2022 History of Present illness Narrative* Edilia Hunter PA-C - 08/09/2022 12:49 PM EST HISTORY AND PHYSICAL Jaret Ch Paulo 1955 REFERRING PHYSICIAN: Edilia Hunter PA-C CHIEF COMPLAINT: Consult (Colonoscopy/) HPI: The patient is a 67 year old male referred for endoscopy. Jaret notes a history of colon polypand is due for surveillance colonoscopy. Patient denies any change in bowel habits, weight changes,blood in stools, black tarry stools or abdominal pain. Denies family history of colon issues. The patient notes no upper GI complaints. Jaret has undergone prior endoscopy. Last colonoscopy 06/20/[address] Pena under conscious sedation with removal of an [...] 06/16/2017 Added automatically from request for surgery [id number] Impaired fasting glucose 07/15/2016 Myalgia and myositis, [...] 1 distal transverse COLONOSCOP W/ OR W/O [facility] SPEC 07/06/10 Normal COLONOSCOP W/ OR W/O [facility] SPEC 06/20/2017 Colonoscopy EGD W/O [facility] SPECIMEN W/BX 07/06/10 gastritis EGD W/O [facility] SPECIMEN W/BX 10/07/14 duodenitis, gastritis, esophagitis EGD W/O [facility] SPECIMEN W/BX 09/13/2016 continued inflammation [...] 2 Puffs as instructed every 4 hours asneeded for Wheezing/Shortness of Breath. multivitamin tablet Take [...] entered by the nurse and reviewed by mt Nursing Notes: Mel Alonso LPN 08/09/2022 1:45 [...] PFSH and ROS obtained by others. Edilia Hunter PA-C PHYSICAL EXAMINATION: General: The patient is 67 year old male, well nourished, well hydrated in no acute distress. The patient is oriented to time, place, and person. VITALS: There were no vitals taken for this visit. There is no height or weight on file to calculate BMI. HEENT: Normal cephalic, ataumatic, pupils are equally round, sclera are anicteric, mucous membranesare moist, oropharynx is clear. Neck has no [...] Will plan for lower endoscopy. We discussed therisks and benefits of the planned endoscopy. I have informed the patient that complications can occur including failure to complete the endoscopy and perforation. The patient had the opportunity to ask questions concerning the planned endoscopy. My staff has also explained the procedure to the patient in understandable terms and has given the patient printed material concerning the procedure. Thepatient freely consents to surgery. The patient was offered a surgery/procedure at a [facility]. I have counseled the [...] for instructions regarding diabetic medication, which may requireadjustment during bowel preparation and/or day of procedure Diagnoses: (Z12.11) Encounter for screening for malignant neoplasm of colon (primary encounter diagnosis) (Z86.010) Personal history of colonic polyps I spent a total of 25 minutes on the date of the service which included preparing to see the patient, [id number] patient care, completing clinical documentation, obtaining and/or reviewing separately obtained history, performing a medically appropriate examination, and care coordination (not separ ately reported). Edilia Hunter PA-C documented in this encounterTrumbull [facility] Center11-03-2017 History of Past illness Narrative* Problem Noted Date Resolved Date Hemorrhoids, internal 06/16/2017 01/15/2018 Overview: Added automatically from request for surgery [id number] Bright red rectal bleeding 06/16/201707/17 Overview: Added automatically from request for surgery [id number] History of colonic polyps 06/16/20172016 Overview: Added automatically from request for surgery [id number] Calculus of gallbladder with out cholecystitis without [...] Laboratory test 07/16/2012 11/04/2014 Overview: PSA done [facility] 07/06/2012 - 0.89 Pain in joint, shoulder region 04/06/2012 0 04/12/2016 GERD (gastroesophageal reflux disease) 0 07/17/2017 Diabetes mellitus 06/25/2010 09/04/2012 Headache(784.0) 10/30/2007 01/15/2018 Dysthymic disorder 07/17/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) Other malaise and fatigue 2015 Other specified disease of hair and hair follicl es 11/04/2014 documented as of this encounter (statuses as of 08/18/2022) [facility] of Past illness Narrative* Problem Noted Date Resolved Date Hemorrhoids, internal 06/16/2017 01/15/2018 Overview: Added automatically from request for surgery [id number] Bright red rectal bleeding 06/16/201707/17 Overview: Added automatically from request for surgery [id number] History of colonic polyps 06/16/20172016 Overview: Added automatically from request for surgery [id number] Calculus of gallbladder with out cholecystitis without [...] Laboratory test 07/16/2012 11/04/2014 Overview: PSA done [facility] 07/06/2012 - 0.89 Pain in joint, shoulder region 04/06/2012 0 04/12/2016 GERD (gastroesophageal reflux disease) 0 07/17/2017 Diabetes mellitus 06/25/2010 09/04/2012 Headache(784.0) 10/30/2007 01/15/2018 Dysthymic disorder 07/17/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) Other malaise and fatigue 2015 Other specified disease of hair and hair follicl es 11/04/2014 documented as of this encounter (statuses as of 09/16/2022) [facility] of Past illness Narrative* Problem Noted Date Resolved Date Hemorrhoids, internal 06/16/2017 01/15/2018 Overview: Added automatically from request for surgery [id number] Bright red rectal bleeding 06/16/201707/17 Overview: Added automatically from request for surgery [id number] History of colonic polyps 06/16/20172016 Overview: Added automatically from request for surgery [id number] Calculus of gallbladder with out cholecystitis without [...] Laboratory test 07/16/2012 11/04/2014 Overview: PSA done [facility] 07/06/2012 - 0.89 Pain in joint, shoulder region 04/06/2012 0 04/12/2016 GERD (gastroesophageal reflux disease) 0 07/17/2017 Diabetes mellitus 06/25/2010 09/04/2012 Headache(784.0) 10/30/2007 01/15/2018 Dysthymic disorder 07/17/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) Other malaise and fatigue 2015 Other specified disease of hair and hair follicl es 11/04/2014 documented as of this encounter (statuses as of 09/16/2022) [facility] of [facility] illness Narrative* Problem Noted Date Resolved Date Hemorrhoids, internal 06/16/2017 01/15/2018 Overview: Added automatically from request for surgery [id number] Bright red rectal bleeding 06/16/201707/17 Overview: Added automatically from request for surgery [id number] History of colonic polyps 06/16/20172016 Overview: Added automatically from request for surgery [id number] Calculus of gallbladder with out cholecystitis without [...] Laboratory test 07/16/2012 11/04/2014 Overview: PSA done [facility] 07/06/2012 - 0.89 Pain in joint, shoulder region 04/06/2012 0 04/12/2016 GERD (gastroesophageal reflux disease) 0 07/17/2017 Diabetes mellitus 06/25/2010 09/04/2012 Headache(784.0) 10/30/2007 01/15/2018 Dysthymic disorder 07/17/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) Other malaise and fatigue 2015 Other specified disease of hair and hair follicl es 11/04/2014 documented as of this encounter (statuses as of 10/13/2022) [facility] of [facility] illness Narrative* Problem Noted Date Resolved Date Hemorrhoids, internal 06/16/2017 01/15/2018 Overview: Added automatically from request for surgery [id number] Bright red rectal bleeding 06/16/201707/17 Overview: Added automatically from request for surgery [id number] History of colonic polyps 06/16/20172016 Overview: Added automatically from request for surgery [id number] Calculus of gallbladder with out cholecystitis without [...] Laboratory test 07/16/2012 11/04/2014 Overview: PSA done [facility] 07/06/2012 - 0.89 Pain in joint, shoulder region 04/06/2012 0 04/12/2016 GERD (gastroesophageal reflux disease) 0 07/17/2017 Diabetes mellitus 06/25/2010 09/04/2012 Headache(784.0) 10/30/2007 01/15/2018 Dysthymic disorder 07/17/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) Other malaise and fatigue 2015 Other specified disease of hair and hair follicl es 11/04/2014 documented as of this encounter (statuses as of 10/20/2022) [facility] of [facility] illness Narrative* Problem Noted Date Resolved Date Hemorrhoids, internal 06/16/2017 01/15/2018 Overview: Added automatically from request for surgery [id number] Bright red rectal bleeding 06/16/201707/17 Overview: Added automatically from request for surgery [id number] History of colonic polyps 06/16/20172016 Overview: Added automatically from request for surgery [id number] Calculus of gallbladder with out cholecystitis without [...] Laboratory test 07/16/2012 11/04/2014 Overview: PSA done [facility] 07/06/2012 - 0.89 Pain in joint, shoulder region 04/06/2012 0 04/12/2016 GERD (gastroesophageal reflux disease) 0 07/17/2017 Diabetes mellitus 06/25/2010 09/04/2012 Headache(784.0) 10/30/2007 01/15/2018 Dysthymic disorder 07/17/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) Other malaise and fatigue 2015 Other specified disease of hair and hair follicl es 11/04/2014 documented as of this encounter (statuses as of 10/26/2022) [facility] illness Narrative* Problem Noted Date Resolved Date Hemorrhoids, internal 06/16/2017 01/15/2018 Overview: Added automatically from request for surgery [id number] Bright red rectal bleeding 06/16/201707/17 Overview: Added automatically from request for surgery [id number] History of colonic polyps 06/16/20172016 Overview: Added automatically from request for surgery [id number] Calculus of gallbladder with out cholecystitis without [...] Laboratory test 07/16/2012 11/04/2014 Overview: PSA done [facility] 07/06/2012 - 0.89 Pain in joint, shoulder region 04/06/2012 0 04/12/2016 GERD (gastroesophageal reflux disease) 0 07/17/2017 Diabetes mellitus 06/25/2010 09/04/2012 Headache(784.0) 10/30/2007 01/15/2018 Dysthymic disorder 07/17/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) Other malaise and fatigue 2015 Other specified disease of hair and hair follicl es 11/04/2014 documented as of this encounter (statuses as of 11/09/2022) [facility]11-03-2017 History of Past illness Narrative* Problem Noted Date Resolved Date Hemorrhoids, internal 06/16/2017 01/15/2018 Overview: Added automatically from request for surgery [id number] Bright red rectal bleeding 06/16/201707/17 Overview: Added automatically from request for surgery [id number] History of colonic polyps 06/16/20172016 Overview: Added automatically from request for surgery [id number] Calculus of gallbladder with out cholecystitis without [...] Laboratory test 07/16/2012 11/04/2014 Overview: PSA done [facility] 07/06/2012 - 0.89 Pain in joint, shoulder region 04/06/2012 0 04/12/2016 GERD (gastroesophageal reflux disease) 0 07/17/2017 Diabetes mellitus 06/25/2010 09/04/2012 Headache(784.0) 10/30/2007 01/15/2018 Dysthymic disorder 07/17/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) Other malaise and fatigue 2015 Other specified disease of hair and hair follicl es 11/04/2014 documented as of this encounter (statuses as of 11/09/2022) [facility]11-03-2017 History of Past illness Narrative* Problem Noted Date Resolved Date Hemorrhoids, internal 06/16/2017 01/15/2018 Overview: Added automatically from request for surgery [id number] Bright red rectal bleeding 06/16/201707/17 Overview: Added automatically from request for surgery [id number] History of colonic polyps 06/16/20172016 Overview: Added automatically from request for surgery [id number] Calculus of gallbladder with out cholecystitis without [...] Laboratory test 07/16/2012 11/04/2014 Overview: PSA done [facility] 07/06/2012 - 0.89 Pain in joint, shoulder region 04/06/2012 0 04/12/2016 GERD (gastroesophageal reflux disease) 0 07/17/2017 Diabetes mellitus 06/25/2010 09/04/2012 Headache(784.0) 10/30/2007 01/15/2018 Dysthymic disorder 07/17/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) Other malaise and fatigue 2015 Other specified disease of hair and hair follicl es 11/04/2014 documented as of this encounter (statuses as of 11/18/2022) [facility]2017 History of Past illness Narrative* Problem Noted Date Resolved Date Hemorrhoids, internal 06/16/2017 01/15/2018 Overview: Added automatically from request for surgery [id number] Bright red rectal bleeding 06/16/201707/17 Overview: Added automatically from request for surgery [id number] History of colonic polyps 06/16/20172016 Overview: Added automatically from request for surgery [id number] Calculus of gallbladder with out cholecystitis without [...] Laboratory test 07/16/2012 11/04/2014 Overview: PSA done [facility] 07/06/2012 - 0.89 Pain in joint, shoulder region 04/06/2012 0 04/12/2016 GERD (gastroesophageal reflux disease) 0 07/17/2017 Diabetes mellitus 06/25/2010 09/04/2012 Headache(784.0) 10/30/2007 01/15/2018 Dysthymic disorder 07/17/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) Other malaise and fatigue 2015 Other specified disease of hair and hair follicl es 11/04/2014 documented as of this encounter (statuses as of 11/23/2022) [facility]2017 History of Past illness Narrative* Problem Noted Date Diagnosed Date Resolved Date Hemorrhoids, internal 06/16/2017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: Added automatically from request for surgery [id number] Bright red rectal bleeding 06/16/2017 1 09/17/2016 Overview: Added automatically from request for surgery [id number] History of colonic polyps 06/16/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: Added automatically from request for surgery [id number] Calculus of gallbladder with out cholecystitis without [...] Laboratory test 07/16/2012 11/04/2014 Overview: PSA done [facility] 07/06/2012 - 0.89 Pain in joint, shoulder region 04/06/2012 04/12/2016 GERD (gastroesophageal reflux disease) 06/28/2010 07/17/2017 Diabetes mellitus 06/25/2010 09/04/2012 Headache(784.0) 10/30/2007 01/15/2018 Dysthymic disorder 7 Overview: Depression (non-psychotic) Other malaise and fatigue Other specified disease of h air and hair follicles 11/04/2014 documented as of this encounter (statuses as of 04/19/2023) [facility]-03-2017 History of Past illness Narrative* Problem Noted Date Diagnosed Date Resolved Date Hemorrhoids, internal 06/16/2017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: Added automatically from request for surgery [id number] Bright red rectal bleeding 06/16/2017 1 09/17/2016 Overview: Added automatically from request for surgery [id number] History of colonic polyps 06/16/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: Added automatically from request for surgery [id number] Calculus of gallbladder with out cholecystitis without [...] Laboratory test 07/16/2012 11/04/2014 Overview: PSA done [facility] 07/06/2012 - 0.89 Pain in joint, shoulder region 04/06/2012 04/12/2016 GERD (gastroesophageal reflux disease) 06/28/2010 07/17/2017 Diabetes mellitus 06/25/2010 09/04/2012 Headache(784.0) 10/30/2007 01/15/2018 Dysthymic disorder 7 Overview: Depression (non-psychotic) Other malaise and fatigue Other specified disease of h air and hair follicles 11/04/2014 documented as of this encounter (statuses as of 06/18/2023) [facility]-2017 History of Past illness Narrative* Problem Noted Date Diagnosed Date Resolved Date Hemorrhoids, internal 06/16/2017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: Added automatically from request for surgery [id number] Bright red rectal bleeding 06/16/2017 1 09/17/2016 Overview: Added automatically from request for surgery [id number] History of colonic polyps 06/16/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: Added automatically from request for surgery [id number] Calculus of gallbladder with out cholecystitis without [...] Laboratory test 07/16/2012 11/04/2014 Overview: PSA done [facility] 07/06/2012 - 0.89 Pain in joint, shoulder region 04/06/2012 04/12/2016 GERD (gastroesophageal reflux disease) 06/28/2010 07/17/2017 Diabetes mellitus 06/25/2010 09/04/2012 Headache(784.0) 10/30/2007 01/15/2018 Dysthymic disorder 7 Overview: Depression (non-psychotic) Other malaise and fatigue Other specified disease of h air and hair follicles 11/04/2014 documented as of this encounter (statuses as of 09/28/2023) [facility]-2017 History of Past illness Narrative* Problem Noted Date Diagnosed Date Resolved Date Hemorrhoids, internal 06/16/2017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: Added automatically from request for surgery [id number] Bright red rectal bleeding 06/16/2017 1 09/17/2016 Overview: Added automatically from request for surgery [id number] History of colonic polyps 06/16/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: Added automatically from request for surgery [id number] Calculus of gallbladder with out cholecystitis without [...] Laboratory test 07/16/2012 11/04/2014 Overview: PSA done [facility] 07/06/2012 - 0.89 Pain in joint, shoulder region 04/06/2012 04/12/2016 GERD (gastroesophageal reflux disease) 06/28/2010 07/17/2017 Diabetes mellitus 06/25/2010 09/04/2012 Headache(784.0) 10/30/2007 01/15/2018 Dysthymic disorder 7 Overview: Depression (non-psychotic) Other malaise and fatigue Other specified disease of h air and hair follicles 11/04/2014 documented as of this encounter (statuses as of 10/12/2023) [facility]02-01-2012 Evaluation note* Diagnosis Onset Date Resolution Status Atherosclerotic heart diseas e of [place] coronary artery without angina pectoris chronic Hyperlipemia chronic Nonrheumatic aortic (valve) stenosis with insufficiency chronic H/O coronary artery bypass surgery September 14, 2011 resolved BPH w urinary obs/LUTS acute Difficulty balancing acute Essential (primary) hypertension acute Fibromyalgia acute Fusion of spine, cervical region acute Atherosclerotic heart diseas e of [place] coronary artery without angina pectoris chronic Hyperlipemia chronic Nonrheumatic aortic (valve) stenosis with insufficiency chronic Type 2 diabetes mellitus chr onic H/O coronary artery bypass surgery September 14, 2011 resolved [facility] Work Phone: 1(374) 869-759102-01-2012 Evaluation note* Diagnosis Onset Date Resolution Status Hyperlipemia chronic Nonrheumatic aortic (valve) stenosis with insufficiency chronic H/O coronary artery bypass surgery September 14, 2011 resolved Acute left otitis media acut e Otitis externa acute Cephalgia acute Stiffness of cervical spine acute [facility] Work Phone: Chief complaint+Reason for visit Narrative* Chief Complaint [facility] COVID-19/COUGH OVERDUE FOR FU [employer]-EST CARE-NPP MAILED EORDER Reason for Visit Atherosclerotic hear t disease of [place] coronary artery without angina pectoris Hyperlipemia Nonrheumatic aortic (valve) stenosis with insufficiency H/O coronary artery bypass surgery BPH w urinary obs/LUTS Difficulty balancing Essential (primary) hypertension Fibromyalgia Fusion of spine, cervical region Atherosclerotic heart disease of [place] coronary artery without angina pectoris Hyperlipemia Nonrheumatic aortic (valve) stenosis with insufficiency Type 2 diabetes mellitus H/O coronary artery bypass surgery [facility] Work Phone: Consult note Author Genie Chance [facility] October 26, 2023 3:50pm Note Date/Time October 26, 2023 3:5 1pm [facility] Medical Records Department [address] [place] [address] Counseling Note - Pharmacy 10/26/23 1550 MR#: [id number] Acct: [id number] Name: JARET BATES Rep #:[id number] : 1955 68 From: Genie Chance PCP: Dr. Marshall Bear MD Status:ADM IN Location: [place] [address] Pharmacy [place] Med Reconciliation Pharmacy Service has performed discharge medication reconciliation for this patient. The patient's discharge medication list was reviewed for discrepancies and discrepancies were resolved. Medications at Discharge Home Medications aspirin 81 mg tablet,delayed release 81 mg PO DAILY HEART HEALTH 12/23/15 multivitamin 1 tab PO DAILY supplement 07/09/19 baclofen 10 mg tablet 10 mg PO TID PRN PRN Muscle Spasm 05/14/20 gabapentin 100 mg capsule 200 mg PO TID neuropathy 05/14/20 naproxen sodium 220 mg capsule (Aleve) 220 mg PO BID PRN Pain 02/04/22 albuterol sulfate 90 mcg/actuation aerosol inhaler 1 - 2 puff inhalation Q4H PRNPRN Wheezing #8.5 grams 04/21/22 handicap placard #1 ea 04/21/22 blood sugar diagnostic (FreeStyle Lite Strips) #100 ea 09/15/22 blood-glucose meter (FreeStyle Lite Meter kit) #1 ea 09/15/22 fluticasone propionate 50 mcg/actuation nasal spray,suspension 1 - 2 spray intranasal BID PRN allergies, congestion #16 grams 04/27/23 metformin 500 mg tablet 500 mg PO BID DIABETES #180 tabs 04/27/23 linaclotide 72 mcg capsule 72 mcg PO DAILY IBS #90 caps 06/27/23 acetaminophen 500 mg capsule 1,000 mg PO Q6H PRN pain 07/18/23 atorvastatin 40 mg tablet 40 mg PO QHS CHOLESTEROL #90 tabs 08/21/23 medical marijuana card PO unknown 08/21/23 omeprazole 40 mg capsule,delayed release 40 mg PO DAILY PRN Reflux #30 caps 08/21/23 trazodone 50 mg tablet 50 - 100 mg (1 - 2 x 50 mg) PO QHS sleep #90 tabs 08/21/23 sucralfate 1 gram tablet (Carafate) 1 g PO QACHS #30 tabs 09/27/23 metoclopramide HCl 10 mg tablet (Reglan) 10 mg PO Q8H PRN PRN nausea and vomiting #14 tabs 10/01/23 ondansetron 4 mg disintegrating tablet 4 mg PO Q6H PRN nausea and vomiting #20 tabs 10/03/23 oxycodone 5 mg tablet 7.5 mg PO TID PRN PRN pain 10/21/23 tamsulosin 0.4 mg capsule 0.4 mg PO QHS PRN urinary retention 10/21/23 ceftriaxone 2 gram intravenous solution 2 g IV Q24H 38 days 10/26/23 vancomycin 1,000 mg intravenous injection 2 g IV Q12H 38 days #76 ea 10/26/23 10/26/23 0300 <Electronically signed by Genie Chance > Date _ Genie Chance Cosigner Signature (if applicable): Date CC: ~ Signed [facility] Work Phone: consult note Author Drea Duarte [facility] December 12, 2023 12:46pm Note Date/Time December 12, 2023 12: 46pm [facility] Medical Records Department [address] [place] [address] Counseling Note - Pharmacy 12/12/23 1246 MR#: [id number] Acct: [id number] Name: JARET BATES Rep #:[id number] : 1955 68 From: Drea Duarte PCP: Dr. Marshall Bear MD Status:ADM IN Location: [place] [address] Pharmacy [place] Med Reconciliation Pharmacy Service has performed discharge medication reconciliation for this patient. The patient's discharge medication list was reviewed for discrepancies and discrepancies were resolved. Medications at Discharge Home Medications aspirin 81 mg tablet,delayed release 81 mg PO DAILY HEART HEALTH 12/23/15 multivitamin 1 tab PO DAILY supplement 07/09/19 gabapentin 100 mg capsule 200 mg PO TID neuropathy 05/14/20 naproxen sodium 220 mg capsule (Aleve) 220 mg PO BID PRN Pain 02/04/22 albuterol sulfate 90 mcg/actuation aerosol inhaler 1 - 2 puff inhalation Q4H PRNPRN Wheezing #8.5 grams 04/21/22 handicap placard #1 ea 04/21/22 blood sugar diagnostic (FreeStyle Lite Strips) #100 ea 09/15/22 blood-glucose meter (FreeStyle Lite Meter kit) #1 ea 09/15/22 fluticasone propionate 50 mcg/actuation nasal spray,suspension 1 - 2 spray intranasal BID PRN allergies, congestion #16 grams 04/27/23 linaclotide 72 mcg capsule 72 mcg PO DAILY IBS #90 caps 06/27/23 atorvastatin 40 mg tablet 40 mg PO QHS CHOLESTEROL #90 tabs 08/21/23 omeprazole 40 mg capsule,delayed release 40 mg PO DAILY PRN Reflux #30 caps 01/08/24 trazodone 50 mg tablet 50 - 100 mg (1 - 2 x 50 mg) PO QHS sleep #90 tabs 08/21/23 ondansetron 4 mg disintegrating tablet 4 mg PO Q6H PRN nausea and vomiting #20 tabs 10/03/23 oxycodone 5 mg tablet 7.5 mg PO TID PRN PRN pain 10/21/23 baclofen 10 mg tablet 10 mg PO TID PRN PRN muscle spasm 12/10/23 acetaminophen 500 mg capsule 1,000 mg (2 x 500 mg) PO Q8H PRN PRN pain #3 caps 12/12/23 metformin 500 mg tablet 500 mg PO BID 1 month #60 tabs 12/12/23 12/12/23 1246 <Electronically signed by Drea Duarte> Date _ Drea Duarte Cosigner Signature (if applicable): Date CC: ~ Signed [facility] Work Phone: Discharge summary Author Ochoa Figueroa [facility] December 12, 2023 12:14pm Note Date/Time December 12, 2023 11: 58am [facility] Medical Records Department [address] [place] [id number] Instructions for Home/Discharge Instructions 12/12/23 1157 MR#: [id number] Acct: [id number] Name: JARET BATES Rep #:[id number] : 1955 68 From: Ochoa Mcfarlane PCP: Dr. Marshall Bear MD Status:ADM IN Discharge Instructions Diet Discharge Diet: No restrictions Activity Discharge Activity: Return to Normal Activity Weight Bearing Status: Weight bearing as tolerated Dressing / Incision Call your doctor if you observe: Fever of 101 or Higher, Coldness, Increased Pain, Numbness or Tingling, Change in Color, Inability to urinate, Inability to have a bowel movement, Shortness of breath, Dizziness, Fainting spells, Swellingin the ankles, Chest pain, Prolonged hiccupping, Increased palpitations (irregular heartbeat) and Calf discomfort Follow Up Care When: IN 2 WEEKS Test Results: Test results from this visit will be discussed in further detail at your follow- up appointment, if applicable. Discharge Plan Admission Admit Date/Time: 12/10/23 00:16 Attending Provider: Ochoa Figueroa Primary Care Provider: Marshall Bear Consulting Providers: Giuliano Pacheco; Tarik Wilkinson Instructions Additional Instructions / Restrictions: Advised MiraLAX 17 g oral daily and senna S2 tablet twice daily as needed for constipation as patient is on oxycodone. Both medications are available [id number] Discharge Orders/Prescriptions Prescriptions: New metformin 500 mg tablet 500 mg PO BID 30 Days Qty: 60 2RF Rx Instructions: Start from 12/14/2023 Continued multivitamin Tablet 1 tab PO DAILY (DME) handicap placard See Rx Instructions .Route .MEDSUPPLY Qty: 1 0RF Rx Instructions: fatique , pain in right knee , oteoarathritis aspirin 81 MG tablet,delayed release (DR/EC) 81 mg PO DAILY gabapentin 100 MG capsule 200 mg PO TID baclofen 10 mg tablet 10 mg PO TID PRN PRN (Reason: muscle spasm) oxycodone 5 mg tablet 7.5 mg PO TID PRN PRN (Reason: pain) albuterol sulfate 90 mcg/actuation HFA aerosol inhaler 1 - 2 puff INHALATION Q4H PRN PRN (Reason: Wheezing) Qty: 8.5 3RF (DME) FreeStyle Lite Strips Strip See Rx Instructions .Route Qty: 100 3RF Rx Instructions: Twice daily (DME) blood-glucose meter [FreeStyle Lite Meter] Kit See Rx Instructions .Route Qty: 1 0RF Rx Instructions: Test twice daily fluticasone propionate 50 mcg/actuation spray,suspension 1 - 2 spray intranasal BID PRN (Reason: allergies, congestion) Qty: 16 3RF Rx Instructions: administer into each nostril; 2 sprays in each nostril for the first week linaclotide 72 mcg capsule 72 mcg PO DAILY Qty: 90 3RF atorvastatin 40 mg tablet 40 mg PO QHS Qty: 90 3RF Hold Instructions: 2/18/22- Myalgia and sleep issues omeprazole 40 mg capsule,delayed release(DR/EC) 40 mg PO DAILY PRN (Reason: Reflux) Qty: 30 1RF trazodone 50 mg tablet 50 - 100 mg PO QHS Qty: 90 3RF ondansetron 4 mg tablet,disintegrating 4 mg PO Q6H PRN (Reason: nausea and vomiting) Qty: 20 0RF Changed acetaminophen 500 mg capsule 1,000 mg PO Q8H PRN PRN (Reason: pain) Qty: 3 0RF Held naproxen sodium [Aleve] 220 mg capsule 220 mg PO BID PRN (Reason: Pain) Hold Instructions: Hold for 5 days as patient had JUNI. Discontinued ceftriaxone 2 gram recon soln 2 g IV Q24H 38 Days Rx Instructions: stop date 12/03/23. Dx: spine osteomyelitis. Weekly bmp, cbc, ESR, and vanc trough; fax to [phone]. Routine picc care per protocol. metformin 500 mg tablet 500 mg PO BID Qty: 180 3RF Referrals / Follow Up: Marshall Bear MD [Primary Care Provider] - Ventura Godoy DO [Med Staff - Active Staff] - Within 2 Weeks Dimas Chung MD [Med Staff - Active Staff] - Within 1 Month (For back pain) Disposition Disposition (needs filled in before D/C Order can be placed): Home, Self Care 12/12/23 1214<Electronically signed by Ochoa Figueroa MD>Ochoa Figueroa MD CC: Dr. Giuliano Pacheco DO; Dr. Marshall Bear MD; Dr. Tarik Wilkinson MD ~ Signed [facility] Work Phone: Discharge summary Author Ochoa Figueroa [facility] December 12, 2023 12:19pm Note Date/Time December 12, 2023 12: 18pm [facility] Medical Records Department [facility] [place] [address] Discharge Summary 12/12/23 1214 MR#: [id number] Acct: [id number] Name: JARET BATES Rep #:[id number] : 1955 68 From: Ochoa Mcfarlane PCP: Dr. Marshall Bear MD Status:ADM IN Location: [id number] Providers Date of Admission: 12/10/23 Date of Discharge: 12/12/23 Primary Care Physician: Dr. Marshall Bear MD Consultations 12/10/23 11:11 Consult: Infectious Disease Routine Consulting Provider: Tarik Wilkinson Reason for Consult: Rec lumbar pain. Completed 6 wks of IV vancomycin for discitis, 1-2 wks ago EMERGENT Consult: No MD Notified: Yes Date Notified: 12/10/23 Time Notified: 11:11 Method of Notification: Text Reason For Visit: RECURRENT LOW BACK PAIN, RECENT HX OF DISCITIS Diagnosis Discharge Diagnosis (1) History of discitis: Status: Acute Code(s): Z87.39 - Personal history of other diseases of the musculoskeletal system and connective tissue (2) History of osteomyelitis: Status: Acute Code(s): Z87.39 - Personal history of other diseases of the musculoskeletal system and connective tissue Plan Patient is a 68-year-old male who presented [facility] ED on 12/10/2023 with recurrent low back pain. 1. Recurrent low back pain, recent history of L4-5 laminectomy complicated by discitis/osteomyelitis, debility ? Admit under inpatient [facility] to [facility]. MRI lumbar spine with and without IVcontrast ordered. Was given one-time doses of antibiotics in the ED, will hold on further antibiotics for now until MRI results. await MRI result prior to orthopedic consult. Pain control with scheduled Tylenol, oxycodone as needed and IV Dilaudid as needed. PT/OT/case management consulted. 12/09: Patient had 6 weeks of IV antibiotics vancomycin, completed 1 to 2 weeks ago for discitis/osteomyelitis. ID consulted requested 12/10: Patient had MRI ordered. Official report not available. Acute discitis/osteomyelitis needs to be ruled out before discharge. 12/11: On exam patient does not have point tenderness but he feels mild stiffness. SLR also negative at 60 degrees. Does not have clinical signs of discitis or osteomyelitis. MRI finding of discitis/osteomyelitis at L4-5 with no focal abscess or fluid collection. Discussed with ID. Radiological/MRI finding may last several months but clinically does not have osteomyelitis signsand symptoms. Advised to follow- up with the pain management and spine doctor Walt. Monitor off antibiotic. 2. Mild JUNI ? Creatinine 1.52 on admit, recent baseline around 1.1-1.2. Suspect mild prerenal JUNI due to recent poor p.o. intake. IV fluids given in the ED. Follow-up a.m. BMP and urine output. 12/09: BUNs/creatinine 23/1.21. Improvement in creatinine. 12/10: BUNs/creatinine improved to 23/1.21. His creatinine runs around 1.10-1.25. I think he achieved his baseline JUNI resolved. 12/11: Patient was advised to hold naproxen for 5 days. Follow with PCP most likely she will be discontinued. BP elevated 151/87 without formal diagnosis of hypertension: Started on amlodipine 5 mg daily. Patient will need home or ambulatory BP monitoring to diagnose hypertension in the outpatient to be followed by PCP. Chronic medical conditions: ? History of CAD s/p CABG/hyperlipidemia: Continue home aspirin and statin. ? GERD: Continue home PPI as needed. ? Tobacco dependence: Encouraged cessation. Nicotine replacement therapy available as needed. ? Type 2 diabetes mellitus: Home regimen of metformin 500 mg twice daily. Bloodglucose 128 on admit. Recent A1c 6.4%. Sliding scale insulin with meals ordered. Patient on metformin, prescription for metformin given to start from 12/14/2023 ? Neuropathy: Continue home gabapentin. ? Asthma: Stable on room air. Continue home inhalers as needed. DVT prophylaxis: Heparin subcu CODE STATUS: Full code, verified Expected disposition: TBD Plan of care discussed with the patient's near the bedside Clinical Impression(s) from Imaging Studies Lumbar Spine CT 12/09/23 23:11 IMPRESSION: Advanced degenerative changes. Similar straightening of the usual lordotic curvature and levoscoliosis. Similar degree in size of multifocal bony erosions of the opposing vertebral body endplates at L4-5, likely due to indolent and actively treated osteomyelitis-discitis. Mild surrounding increased bony sclerosis around the erosions suggesting early healing-reactive bone formation. They are not yet healed. No new erosions or significant change in surrounding soft tissues. No enhancing paraspinous or intraspinous abscess. Medications at Discharge Home Medications aspirin 81 mg tablet,delayed release 81 mg PO DAILY HEART HEALTH 12/23/15 multivitamin 1 tab PO DAILY supplement 07/09/19 gabapentin 100 mg capsule 200 mg PO TID neuropathy 05/14/20 naproxen sodium 220 mg capsule (Aleve) 220 mg PO BID PRN Pain 02/04/22 albuterol sulfate 90 mcg/actuation aerosol inhaler 1 - 2 puff inhalation Q4H PRNPRN Wheezing #8.5 grams 04/21/22 handicap placard #1 ea 04/21/22 blood sugar diagnostic (FreeStyle Lite Strips) #100 ea 09/15/22 blood-glucose meter (FreeStyle Lite Meter kit) #1 ea 09/15/22 fluticasone propionate 50 mcg/actuation nasal spray,suspension 1 - 2 spray intranasal BID PRN allergies, congestion #16 grams 04/27/23 linaclotide 72 mcg capsule 72 mcg PO DAILY IBS #90 caps 06/27/23 atorvastatin 40 mg tablet 40 mg PO QHS CHOLESTEROL #90 tabs 08/21/23 omeprazole 40 mg capsule,delayed release 40 mg PO DAILY PRN Reflux #30 caps 08/21/23 trazodone 50 mg tablet 50 - 100 mg (1 - 2 x 50 mg) PO QHS sleep #90 tabs 08/21/23 ondansetron 4 mg disintegrating tablet 4 mg PO Q6H PRN nausea and vomiting #20 tabs 10/03/23 oxycodone 5 mg tablet 7.5 mg PO TID PRN PRN pain 10/21/23 baclofen 10 mg tablet 10 mg PO TID PRN PRN muscle spasm 12/10/23 acetaminophen 500 mg capsule 1,000 mg (2 x 500 mg) PO Q8H PRN PRN pain #3 caps 12/12/23 metformin 500 mg tablet 500 mg PO BID 1 month #60 tabs 12/12/23 Physical Exam Narrative Seen and examined. Patient walked 3 rounds of nursing station. Back pain is much improved. Seen and examined General: Alert, Oriented x3, Cooperative HEENT: Atraumatic, PERRLA, EOMI, Normocephalic Oral: No Gingival or Mucosal Lesions/ Ulcerations Neck: Supple, No JVD, Negative Carotid Bruits Chest wall/Lungs: Air entry diminished in bilateral lung bases. No crepitation/rhonchi Cardiovascular: Regular rate, Regular Rhythm, Normal S1, Normal S2, No M/G/R Abdomen: Bowel Sounds Present, Soft, Non Tender, Non-Distended : No dysuria. No renal angle tenderness. No suprapubic tenderness. Extremities: No edema, Capillary Refill Less than 3 Seconds Skin: No rashes, No breakdown Musculoskeletal/spine: No point tenderness. Mild stiffness at L4-5. SLR at 60 degrees negative both lower extremities. No tenderness in knee or hip joints. ROM severely limited at lumbar back and hip joints because of muscle spasm Neurological: Cranial nerves II-XII grossly intact, DTR 2+/4. No acute focal neurological deficit. Psych/Mental Status: Flat affect Weight / BMI Weight Weight: 172 lb 6.424 oz Body Mass Index (BMI) 24.7 ABG / Lab / Microbiology Data 12/10/23 04:43 12/10/23 04:43 Laboratory: Laboratory Results - last 24 hr 12/11/23 16:24: POC Glucose 99 12/11/23 21:15: POC Glucose 185 H 12/12/23 05:04: POC Glucose 101 Microbiology: Microbiology 12/09/23 22:50 Blood Culture (Wb) - Anticubital Right Blood Culture - Preliminary No growth in 48 hours. 12/09/23 22:48 Blood Culture (Wb) - Left Wrist Blood Culture - Preliminary No growth in 48 hours. Radiography Diagnostic Testing: Radiology Impression Lumbar Spine MRI 12/11/23 00:23 IMPRESSION: Discitis osteomyelitis at L4-5. No focal abscess or fluid collection. Scoliosis with degenerative and postoperative change. Multilevel foraminal narrowing. Electronically Signed: Tonny Rouse MD at 18:39 EDT Reading Location ID and State: [address] [place] [address] , Service support , D/C Instructions Discharge Diet: No restrictions Weight Bearing Status: Weight bearing as tolerated Call your doctor if you observe: Fever of 101 or Higher, Coldness, Increased Pain, Numbness or Tingling, Change in Color, Inability to urinate, Inability to have a bowel movement, Shortness of breath, Dizziness, Fainting spells, Swellingin the ankles, Chest pain, Prolonged hiccupping, Increased palpitations (irregular heartbeat) and Calf discomfort When: IN 2 WEEKS Meaningful Use Info Meaningful Use Meaningful Use Diagnoses (Choose all that apply): None applicable Ischemic Stroke Statin Dosing Therapy Reference: STATIN DOSE THERAPY REFERENCE: * Patients > 75 years receive moderate or high dose statin therapy. * Patients 75 years or YOUNGER should receive HIGH intensity statin dose unless contraindicated. You will be required to document reason for non-treatment if statin daily dose does not meet guidelines. HIGH DOSE STATIN THERAPY DAILY Atorvastatin > than or = to 40 mg Rosuvastatin > than or = to 20 mg Amlodipine + Atorvastatin > than or = to 2.5/40 mg Ezetimibe + Simvastatin 10/80 mg Simvastatin 80mg Discharge Plan Admission Admit Date/Time: 12/10/23 00:16 Attending Provider: Ochoa Figueroa Primary Care Provider: Marshall Bear Consulting Providers: Giuliano Pacheco; Tarik Wilkinson Instructions Additional Instructions / Restrictions: Advised MiraLAX 17 g oral daily and senna S2 tablet twice daily as needed for constipation as patient is on oxycodone. Both medications are available [id number] Discharge Orders/Prescriptions Prescriptions: New metformin 500 mg tablet 500 mg PO BID 30 Days Qty: 60 2RF Rx Instructions: Start from 12/14/2023 Continued multivitamin Tablet 1 tab PO DAILY (DME) handicap placard See Rx Instructions .Route .MEDSUPPLY Qty: 1 0RF Rx Instructions: fatique , pain in right knee , oteoarathritis aspirin 81 MG tablet,delayed release (DR/EC) 81 mg PO DAILY gabapentin 100 MG capsule 200 mg PO TID baclofen 10 mg tablet 10 mg PO TID PRN PRN (Reason: muscle spasm) oxycodone 5 mg tablet 7.5 mg PO TID PRN PRN (Reason: pain) albuterol sulfate 90 mcg/actuation HFA aerosol inhaler 1 - 2 puff INHALATION Q4H PRN PRN (Reason: Wheezing) Qty: 8.5 3RF (DME) FreeStyle Lite Strips Strip See Rx Instructions .Route Qty: 100 3RF Rx Instructions: Twice daily (DME) blood-glucose meter [FreeStyle Lite Meter] Kit See Rx Instructions .Route Qty: 1 0RF Rx Instructions: Test twice daily fluticasone propionate 50 mcg/actuation spray,suspension 1 - 2 spray intranasal BID PRN (Reason: allergies, congestion) Qty: 16 3RF Rx Instructions: administer into each nostril; 2 sprays in each nostril for the first week linaclotide 72 mcg capsule 72 mcg PO DAILY Qty: 90 3RF atorvastatin 40 mg tablet 40 mg PO QHS Qty: 90 3RF Hold Instructions: 10/01/21- Myalgia and sleep issues omeprazole 40 mg capsule,delayed release(DR/EC) 40 mg PO DAILY PRN (Reason: Reflux) Qty: 30 1RF trazodone 50 mg tablet 50 - 100 mg PO QHS Qty: 90 3RF ondansetron 4 mg tablet,disintegrating 4 mg PO Q6H PRN (Reason: nausea and vomiting) Qty: 20 0RF Changed acetaminophen 500 mg capsule 1,000 mg PO Q8H PRN PRN (Reason: pain) Qty: 3 0RF Held naproxen sodium [Aleve] 220 mg capsule 220 mg PO BID PRN (Reason: Pain) Hold Instructions: Hold for 5 days as patient had JUNI. Discontinued ceftriaxone 2 gram recon soln 2 g IV Q24H 38 Days Rx Instructions: stop date 12/03/23. Dx: spine osteomyelitis. Weekly bmp, cbc, ESR, and vanc trough; fax to [phone]. Routine picc care per protocol. metformin 500 mg tablet 500 mg PO BID Qty: 180 3RF Referrals / Follow Up: Marshall Bear MD [Primary Care Provider] - Ventura Godoy DO [Med Staff - Active Staff] - Within 2 Weeks Dimas Chung MD [Med Staff - Active Staff] - Within 1 Month (For back pain) Disposition Disposition (needs filled in before D/C Order can be placed): Home, Self Care Charges/Coding Visit Charges Inpatient E&M: 95288 Disch Hosp >30min 12/12/23 1219 <Electronically signed by Ochoa Figueroa MD> Cosigner Signature (if applicable): CC: Dr. Marshall Bear MD; Dr. Ochoa Figueroa MD~ Signed [facility] Work Phone: Evaluation note* Diagnosis Onset Date Resolution Status Mechanical pain of right knee acute Right knee DJD acute Tear of medial meniscus of right knee acute [facility] Work Phone: Evaluation note* Diagnosis Onset Date Resolution Status Mechanical pain of right knee acute Right knee DJD acute Tear of medial meniscus of right knee acute Orthopedic aftercare acute Orthopedic aftercare acute COVID-19 acute COVID-19 acute [facility] Work Phone: Evaluation note* Diagnosis Onset Date Resolution Status Mechanical pain of right knee acute Right knee DJD acute Tear of medial meniscus of right knee acute Orthopedic aftercare acute Orthopedic aftercare acute COVID-19 acute COVID-19 acute Orthopedic aftercare acute Right knee pain noneactive BPH w urinary obs/LUTS acute Fatigue acute Hyperlipemia chronic Nonrheumatic aortic (valve) stenosis with insufficiency chronic Type 2 diabetes mellitus [facility] onic H/O coronary artery bypass surgery September 14, 2011 resolved [facility] Work Phone: Evaluation note* Diagnosis Onset Date Resolution Status Orthopedic aftercare acute Orthopedic aftercare acute COVID-19 acute COVID-19 acute Orthopedic aftercare acute Right knee pain noneactive BPH w urinary obs/LUTS acute Fatigue acute Hyperlipemia chronic Nonrheumatic aortic (valve) stenosis with insufficiency chronic Type 2 diabetes mellitus [facility] on H/O coronary artery bypass surgery September 14, 2011 resolved [facility] Work Phone: Evaluation note* Diagnosis Encounter for screening for malignant neoplasm of colon- Primary Special screening for malignant neoplasms, colon Personal history of colonic polyps [facility] Diagnosis Onset Date Resolution Status 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 Sinusitis noneactive Acute upper abdominal pain a cute Essential (primary) hypertension acute Atherosclerotic heart diseas e of [place] coronary artery without angina pectoris chronic Hyperlipemia chronic Type 2 diabetes mellitus [facility] Work Phone: Evaluation note* Diagnosis History of colonic polyps- Primary Personal history of colonic polyps Epigastric pain Abdominal pain, epigastric [facility] Diagnosis Diverticulosis- Primary Diverticulosis of colon (without mention of hemorrhage) History of colonic polyps Personal history of colonic polyps Gastritis and duodenitis Unspecified gastritis and gastroduodenitis without mention of hemorrhage [facility] Diagnosis Calculus of gallbladder without cholecystitis without obstruction- Primary Calculus of gallbladder without mention of cholecystitis or obstruction RUQ pain Abdominal pain, right upper quadrant [facility] Diagnosis Pre-operative examination- Primary Preoperative examination, unspecified Other hyperlipidemia Coronary artery disease involving [place] coronary artery of [place] heart without angina 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 [facility] Diagnosis Onset Date Resolution Status Right knee DJD acute Sinusitis noneactive Acute upper abdominal pain a cute Essential (primary) hypertension acute Atherosclerotic heart diseas e of [place] coronary artery without angina pectoris chronic Hyperlipemia chronic Type 2 diabetes mellitus chr onic Acute upper abdominal pain a cute Essential (primary) hypertension acute Otitis externa acute Hyperlipemia chronic Type 2 diabetes mellitus chr onic Bilateral primary osteoarthritis of knee acute [facility] Work Phone: Evaluation note* Diagnosis Calculus of gallbladder with chronic cholecystitis without obstruction- Primary Calculus of gallbladder with other cholecystitis, without mention of obstruction Back spasm Other symptoms referable to back [facility] Diagnosis Onset Date Resolution Status Cephalgia acute Stiffness of cervical spine acute Neck pain acute Neck pain acute Tension headache acute [facility] Work Phone: Evaluation note* Diagnosis Onset Date Resolution Status Cephalgia acute Stiffness of cervical spine acute Neck pain acute Neck pain acute Tension headache acute Acute lumbar radiculopathy a cute Bilateral primary osteoarthritis of knee acute [facility] Work Phone: Evaluation note* Diagnosis Onset Date Resolution Status Cephalgia acute Stiffness of cervical spine acute Neck pain acute Neck pain acute Tension headache acute Bilateral primary osteoarthritis of knee acute Urinary frequency acute [facility] Work Phone: Evaluation note* Diagnosis Gastroesophageal reflux disease with esophagitis, unspecified whether hemorrhage- Primary Constipation, unspecified constipation type History of colonic polyps Personal history of colonic polyps Epigastric pain Abdominal pain, epigastric [facility] Diagnosis Onset Date Resolution Status Neck pain acute Neck pain acute Tension headache acute Bilateral primary osteoarthritis of knee acute Urinary frequency acute Herniated nucleus pulposus, L4-5 left acute Herniated nucleus pulposus, L4-5 left acute Herniated nucleus pulposus, L4-5 left acute High cholesterol acute Status post discectomy for herniated nucleus pulposus acute [facility] Work Phone: Evaluation note* Diagnosis Onset Date Resolution Status Neck pain acute Tension headache acute Bilateral primary osteoarthritis of knee acute Urinary frequency acute Herniated nucleus pulposus, L4-5 left resolved Herniated nucleus pulposus, L4-5 left resolved High cholesterol acute Herniated nucleus pulposus, L4-5 left resolved Status post discectomy for herniated nucleus pulposus resolved S/P laminectomy acute S/P laminectomy acute [facility] Work Phone: Evaluation note* Diagnosis Epigastric pain- Primary Abdominal pain, epigastric [facility] Diagnosis Gastroesophageal reflux disease with esophagitis and hemorrhage- Primary Epigastric pain Abdominal pain, epigastric [facility] Diagnosis Onset Date Resolution Status Herniated nucleus pulposus, L4-5 left resolved Status post discectomy for herniated nucleus pulposus resolved Sinus infection resolved Abdominal pain resolved Bilirubinuria resolved Contact with or exposure to other viral diseases resolved Abdominal pain resolved Bilirubinuria resolved Discitis of lumbar region ac [place] Altered mental status resolv ed Expressive aphasia resolved [facility] Work Phone: Evaluation note* Diagnosis Onset Date Resolution Status Herniated nucleus pulposus, L4-5 left resolved Status post discectomy for herniated nucleus pulposus resolved Essential (primary) hypertension acute Hyperlipemia acute Type 2 diabetes mellitus acu te Sinus infection resolved Lumbosacral radiculopathy at L5 acute Lumbosacral radiculopathy at L5 acute Abdominal pain resolved Bilirubinuria resolved Contact with or exposure to other viral diseases resolved Abdominal pain resolved Bilirubinuria resolved Discitis of lumbar region ac [place] Altered mental status resolv ed Expressive aphasia resolved 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 acute Discitis of lumbar region ac [place] Lumbosacral radiculopathy at L5 acute [facility] Work Phone: Evaluation note* Diagnosis Onset Date Resolution Status Essential (primary) hypertension acute Hyperlipemia acute Type 2 diabetes mellitus acu te Sinus infection resolved Lumbosacral radiculopathy at L5 acute Lumbosacral radiculopathy at L5 acute Abdominal pain resolved Bilirubinuria resolved Contact with or exposure to other viral diseases resolved Abdominal pain resolved Bilirubinuria resolved Discitis of lumbar region ac [place] Altered mental status resolv ed Expressive aphasia resolved 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 acute Discitis of lumbar region ac [place] Lumbosacral radiculopathy at L5 acute Acute lumbar radiculopathy a cute JUNI (acute kidney injury) ac [place] Debility acute History of discitis acute History of osteomyelitis acu te Recurrent low back pain acut e Renal insufficiency acute [facility] Work Phone: Hospital Discharge instructions Additional Instructions Please return if your symptoms change or worsen. Please return if you develop difficulty urinating, if you do not have bowel movements for greater than 1 week. If you develop vomiting that is not alleviated by Zofran. Please take Bentyl as needed for abdominal cramping. Please eat a healthy diet. Please increase your fiber intake. Please follow with your primary care physician the next billable appointment.[facility] Work Phone: Hospital Discharge instructions Additional Instructions Follow-up with Dr. Bear in 1 week. Keep appointment for EGD on 10/11/2023. You may have loose stool for the next 24 hours after the oral contrast for your CAT scan. Follow bland diet until feeling better. Reglan every 8 hours for nausea.[facility] Work Phone: Reason for referral (narrative)* Outpatient Procedure (Routine) - Pending Review Specialty Diagnoses / Procedures Referred By Jeffrey jacob Referred To Contact [facility] Diagnoses Epigastric pain Procedures EGD DIAGNOSTIC ESOPHAGOGASTRODUODENOSC OPY TRANSORAL DIAGNOSTIC Jose Juan Pena MD [address] [place] [address] [facility] [address] [place] [address] Referral ID Status Reason Start Date Expiration Date Visits Requested Visits Authorized [id number] Pending Review Auto-Generat ed Referral 09/16/2022 09/16/2023 1 1 * Outpatient Procedure (Routine) - Authorized Specialty Diagnoses / Procedures Referred By Jeffrey jacob Referred To Contact [facility] Diagnoses History of colonic polyps Procedures COLONOSCOPY SCREENING COLONOSCOPY FLX DX W/COLLJ SPEC WHEN PFPEYMAND Edilia Hunter PA-C [address] [address] [place] [address] Referral ID Status Reason Start Date Expiration Date Visits Requested Visits Authorized [id number] Authorized Auto-Generat ed Referral 08/09/2023 1 1 [facility] for referral (narrative)* Outpatient Procedure (Routine) - Closed Specialty Diagnoses / Procedures Referred By Jeffrey jacob Referred To Contact [facility] Diagnoses Epigastric pain Procedures EGD DIAGNOSTIC ESOPHAGOGASTRODUODENOSC OPY TRANSORAL DIAGNOSTIC Jose Juan Pena MD [address] [place] [address] [address] Referral ID Status Reason Start Date Expiration Date V isits Requested Visits Authorized [id number] Closed Auto-Generate d Referral 09/16/2022 09/16/2023 1 1 * Outpatient Procedure (Routine) - Closed Specialty Diagnoses / Procedures Referred By Jeffrey jacob Referred To Contact [facility] Diagnoses History of colonic polyps Procedures COLONOSCOPY SCREENING COLONOSCOPY FLX DX W/COLLJ SPEC WHEN Edilia Gonzalez PA-C [address] [address] [address] Referral ID Status Reason Start Date Expiration Date V isits Requested Visits Authorized [id number] Closed Auto-Generate d Referral 08/09/2022 08/09/2023 1 1 [facility] for referral (narrative)* Outpatient Procedure (Routine) - Authorized Specialty Diagnoses / Procedures Referred By Jeffrey jacob Referred To Contact [facility] Diagnoses Epigastric pain Procedures EGD DIAGNOSTIC ESOPHAGOGASTRODUODENOS COPY TRANSORAL DIAGNOSTIC Jose Juan Pena MD [address] [address] Referral ID Status Reason Start Date Expiration Date Visits Requested Visits Authorized [id number] Authorized Auto-Generat ed Referral 09/28/2023 09/28/2024 1 1 [facility] for referral (narrative)* Outpatient Procedure (Routine) - Closed Specialty Diagnoses / Procedures Referred By Jeffrey jacob Referred To Contact [facility] Diagnoses Epigastric pain Procedures EGD DIAGNOSTIC ESOPHAGOGASTRODUODENOS COPY TRANSORAL DIAGNOSTIC Jose Juan Pena MD [address] [address] [place] [address] [place] [address] Referral ID Status Reason Start Date Expiration Date V isits Requested Visits Authorized [id number] Closed Auto-Generate d Referral 09/28/2023 09/28/2024 1 1 [facility] for referral (narrative)No reason for referral [facility] Work Phone: Reason for visit Narrative* Outpatient Procedure (Routine) - Closed Specialty Diagnoses / Procedures Referred By Jeffrey jacob Referred To Contact [facility] Diagnoses Epigastric pain Procedures EGD DIAGNOSTIC ESOPHAGOGASTRODUODENOSC OPY TRANSORAL DIAGNOSTIC Jose Juan Pena MD [address] [place] [address] [facility] [place] [address] Referral ID Status Reason Start Date Expiration Date V isits Requested Visits Authorized [id number] Closed Auto-Generate d Referral 09/16/2022 09/16/2023 1 1 [facility] Procedure (Routine) - Closed Specialty Diagnoses / Procedures Referred By Jeffrey jacob Referred To Contact [facility] Diagnoses Epigastric pain Procedures EGD DIAGNOSTIC ESOPHAGOGASTRODUODENOS COPY TRANSORAL DIAGNOSTIC Jose Juan Pena MD [address] [address] [facility] [address] [place] [address] Referral ID Status Reason Start Date Expiration Date V isits Requested Visits Authorized [id number] Closed Auto-Generate d Referral 09/28/2023 09/28/2024 1 1 [facility] Summary Purpose Family History No Family History Records Found Relationship Condition Age at Onset Recorded Date/T danny brother Cardiac disease Unknown Myocardial infarction Unknown Coronary artery disease Unknown father Myocardial infarction Unknown Relationship Condition Age at Onset Recorded Date/T danny brother Cardiac disease Unknown Myocardial infarction Unknown Coronary artery disease Unknown father Myocardial infarction Unknown mother Hyperlipidemia Unknown Advance Directives No Advanced Directives Records Found Advance Directive Response Recorded Date/ Time Advance Directives No April 3:20pm Living Will No September 03 1:42pm Power of Hands Hanger No September 03, 2020 1:42pm Advance Directive Response Recorded Date/ Time Advance Directives No April 3:20pm Living Will No February 23, 2022 9:29am Power of Hands Hanger No February 23 9:29am Advance Directive Response Recorded Date/ Time Advance Directives No April 2:20pm Living Will No February 23, 2022 8:29am Power of Hands Hanger No February 23 8:29am Advance Directive Response Recorded Date/ Time Advance Directives No September 09, 2022 8:50am Living Will No September 12 10:45am Power of Hands Hanger No September 12, 2022 10:45am Advance Directive Response Recorded Date/ Time Advance Directives No September 09, 2022 9:50am Living Will No November 14, 2022 11:23am Power of Hands Hanger No November 14 11:23am Advance Directive Response Recorded Date/ Time Name of Medical Power of Hands Hanger May 10, 2023 3:59pm Name of Medical Power of Hands Hanger May 11, 2023 6:00pm Advance Directives No September 09, 2022 9:50am Living Will Yes May 11, 2023 6:00pm Power of Hands Hanger Yes April 6:00pm Advance Directive Response Recorded Date/ Time Name of Medical Power of Hands Hanger May 10, 2023 2:59pm Name of Medical Power of Hands Hanger May 11, 2023 5:00pm Name of Medical Power of Hands Hanger Alethea - July 18, 2023 12:22pm Advance Directives No September 09, 2022 8:50am Living Will Yes July 18 12:22pm Power of Hands Hanger Yes July 18, 2023 12:22pm Advance Directive Response Recorded Date/ Time Name of Medical Power of Hands Hanger May 10, 2023 2:59pm Name of Medical Power of Hands Hanger May 11, 2023 5:00pm Name of Medical Power of Hands Hanger Alethea - July 18, 2023 12:22pm Advance Directives No September 09, 2022 8:50am Living Will No August 04 023 6:01pm Power of Hands Hanger No August 04, 2023 6:01pm Advance Directive Response Recorded Date/ Time Name of Medical Power of Hands Hanger May 10, 2023 2:59pm Name of Medical Power of Hands Hanger May 11, 2023 5:00pm Name of Medical Power of Hands Hanger Alethea - July 18, 2023 12:22pm Advance Directives No September 09, 2022 8:50am Living Will No August 14 3:35pm Power of Hands Hanger No August 14 024 3:35pm Advance Directive Response Recorded Date/ Time Name of Medical Power of Hands Hanger Alethea - July 18, 2023 12:22pm Name of Medical Power of Hands Hanger Alethea bates October 01, 2023 3:43pm Advance Directives No September 3:26pm Living Will Yes October 01, 2 024 3:43pm Power of Hands Hanger Yes October 01, 2023 3:43pm Advance Directive Response Recorded Date/ Time Name of Medical Power of Hands Hanger Alethea - July 18, 2023 12:22pm Name of Medical Power of Hands Hanger Alethea bates October 01, 2023 3:43pm Name of Medical Power of Hands Hanger alethea bates October 21, 2023 5:41pm Advance Directives No September 3:26pm Living Will Yes October 21, 2023 5:41pm Power of Hands Hanger Yes October 20 5:41pm Advance Directive Response Recorded Date/ Time Name of Medical Power of Hands Hanger Alethea - July 18, 2023 1:22pm Name of Medical Power of Hands Hanger Alethea bates October 01, 2023 4:43pm Name of Medical Power of Hands Hanger alethea bates October 21, 2023 9:44pm Advance Directives No September 4:26pm Living Will Yes October 21, 2023 9:44pm Power of Hands Hanger Yes October 20 9:44pm Advance Directive Response Recorded Date/ Time Name of Medical Power of Hands Hanger Alethea - July 18, 2023 1:22pm Name of Medical Power of Hands Hanger Alethea Bates November 01, 2023 11:18am Advance Directives No September 4:26pm Living Will Yes November 01, 2023 11:18am Power of Hands Hanger Yes October 31 11:18am Name of Medical Power of Hands Hanger Alethea bates October 01, 2023 4:43pm Name of Medical Power of Hands Hanger alethea bates October 21, 2023 9:44pm Advance Directive Response Recorded Date/ Time Name of Medical Power of Hands Hanger Alethea Bates November 01, 2023 11:18am Name of Medical Power of Hands Hanger alethea bates December 10, 2023 1:02am Advance Directives No September 4:26pm Living Will Yes December 10, 2023 1:02am Power of Hands Hanger Yes December 09 1:02am Name of Medical Power of Hands Hanger Alethea bates October 01, 2023 4:43pm Name of Medical Power of Hands Hanger alethea bates October 21, 2023 9:44pm Advance Directive Response Recorded Date/ Time Advance Directives No July 17, 2024 9:59am Advance Directive Response Recorded Date/ Time Living Will Yes April 18 9:11am Do you have a Healthcare Power of Hands Hanger? Yes April 18, 2024 9:11am Advance Directives No July 17, 2024 9:59am Advance Directive Response Recorded Date/ Time Living Will Yes February 13, 2024 1 :42am Do you have a Healthcare Power of Hands Hanger? Yes February 13, 2024 1:42am Living Will Yes April 18 9:11am Do you have a Healthcare Power of Hands Hanger? Yes April 18, 2024 9:11am Advance Directives No July 17, 2024 9:59am Chief Complaint and Reason for Visit Chief Complaint EORDER RIGHT KNEE xray RT KNEE PAIN, HX TRIPLE BYPASS 2012 RIGHT KNEE Reason for Visit Mechanical pain of r ight knee Right knee DJD Tear of medial meniscus of right knee Chief Complaint EORDER RIGHT KNEE xray RT KNEE PAIN, HX TRIPLE BYPASS 2012 RIGHT KNEE RT KNEE ARTHROSCOPY PARTIAL MEDIAL MENISCECTOMY RT KNEE ARTHROSCOPY PARTIAL MEDIAL MENISCECTOMY Reason for Visit Mechanical pain of r ight knee Right knee DJD Tear of medial meniscus of right knee Chief Complaint RIGHT KNEE xray RT KNEE PAIN, HX TRIPLE BYPASS 2012 RIGHT KNEE RT KNEE ARTHROSCOPY PARTIAL MEDIAL MENISCECTOMY RT KNEE ARTHROSCOPY PARTIAL MEDIAL MENISCECTOMY Knee pain/seeping right knee covid test/pos home/ill x2wks Covid + XRAY Reason for Visit Mechanical pain of r ight knee Right knee DJD Tear of medial meniscus of right knee Orthopedic aftercare Orthopedic aftercare COVID-19 COVID-19 Chief Complaint RIGHT KNEE xray RT KNEE PAIN, HX TRIPLE BYPASS 2012 RIGHT KNEE RT KNEE ARTHROSCOPY PARTIAL MEDIAL MENISCECTOMY RT KNEE ARTHROSCOPY PARTIAL MEDIAL MENISCECTOMY Knee pain/seeping right knee covid test/pos home/ill x2wks Covid + XRAY RIGHT KNEE 6 M FU Reason for Visit Mechanical pain of r ight knee Right knee DJD Tear of medial meniscus of right knee Orthopedic aftercare Orthopedic aftercare COVID-19 COVID-19 Orthopedic aftercare Right knee pain BPH w urinary obs/LUTS Fatigue Hyperlipemia Nonrheumatic aortic (valve) stenosis with insufficiency Type 2 diabetes mellitus H/O coronary artery bypass surgery Chief Complaint RT KNEE ARTHROSCOPY PARTIAL MEDIAL MENISCECTOMY RT KNEE ARTHROSCOPY PARTIAL MEDIAL MENISCECTOMY Knee pain/seeping right knee covid test/pos home/ill x2wks Covid + XRAY RIGHT KNEE 6 M FU Reason for Visit Orthopedic aftercare Orthopedic aftercare COVID-19 COVID-19 Orthopedic aftercare Right knee pain BPH w urinary obs/LUTS Fatigue Hyperlipemia Nonrheumatic aortic (valve) stenosis with insufficiency Type 2 diabetes mellitus H/O coronary artery bypass surgery Chief Complaint right knee RIGHT KNEE RIGHT KNEE RIGHT KNEE COLD SYMPTOMS Stomach Issues ABD PAIN Reason for Visit 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 Sinusitis Acute upper abdominal pain Essential (primary) hypertension Atherosclerotic heart disease of [place] coronary artery without angina pectoris Hyperlipemia Type 2 diabetes mellitus Chief Complaint RIGHT KNEE COLD SYMPTOMS Stomach Issues ABD PAIN 6 M FU RIGHT KNEE BACK PAIN Reason for Visit Right knee DJD Sinusitis Acute upper abdominal pain Essential (primary) hypertension Atherosclerotic heart disease of [place] coronary artery without angina pectoris Hyperlipemia Type 2 diabetes mellitus Acute upper abdominal pain Essential (primary) hypertension Otitis externa Hyperlipemia Type 2 diabetes mellitus Bilateral primary osteoarthritis of knee Chief Complaint 1 Y FU (MOVED FROM [facility]) LEFT EAR PAIN CAD, MURMUR CERVICAL Room 1 PAIN, S/P CERVICAL FUSION Reason for Visit Hyperlipemia Nonrheumatic aortic (valve) stenosis with insufficiency H/O coronary artery bypass surgery Acute left otitis media Otitis externa Cephalgia Stiffness of cervical spine Chief Complaint CAD, MURMUR CERVICAL Room 1 PAIN, S/P CERVICAL FUSION CERVICAL SPINE TORTICOLLIS RX HERE CERVICAL SPINE Reason for Visit Cephalgia Stiffness of cervical spine Neck pain Neck pain Tension headache Chief Complaint CAD, MURMUR CERVICAL Room 1 PAIN, S/P CERVICAL FUSION CERVICAL SPINE TORTICOLLIS RX HERE CERVICAL SPINE CERVICALGIA back 6 M FU back pain lumbar Room 3 Reason for Visit Cephalgia Stiffness of cervical spine Neck pain Neck pain Tension headache Acute lumbar radiculopathy Bilateral primary osteoarthritis of knee Acute lumbar radiculopathy Chief Complaint CERVICAL Room 1 PAIN, S/P CERVICAL FUSION CERVICAL SPINE TORTICOLLIS RX HERE CERVICAL SPINE CERVICALGIA back 6 M FU back pain lumbar Room 3 CONCERN FOR UTI Radiculopathy, lumbar region Reason for Visit Cephalgia Stiffness of cervical spine Neck pain Neck pain Tension headache Bilateral primary osteoarthritis of knee Urinary frequency Chief Complaint CERVICAL SPINE TORTICOLLIS RX HERE CERVICAL SPINE CERVICALGIA back 6 M FU back pain lumbar Room 3 CONCERN FOR UTI Radiculopathy, lumbar region lumbar spine LUMBAR SPINE Repeat Lumbar laminectomy L4-5 left Repeat Lumbar laminectomy L4-5 left Repeat Lumbar laminectomy L4-5 left Repeat Lumbar laminectomy L4-5 left Repeat Lumbar laminectomy L4-5 left Repeat Lumbar laminectomy L4-5 left Repeat Lumbar laminectomy L4-5 left Reason for Visit Neck pain Neck pain Tension headache Bilateral primary osteoarthritis of knee Urinary frequency Herniated nucleus pulposus, L4-5 left Herniated nucleus pulposus, L4-5 left Herniated nucleus pulposus, L4-5 left High cholesterol Status post discectomy for herniated nucleus pulposus Chief Complaint TORTICOLLIS RX HERE CERVICAL SPINE CERVICALGIA back 6 M FU back pain lumbar Room 3 CONCERN FOR UTI Radiculopathy, lumbar region lumbar spine LUMBAR SPINE Repeat Lumbar laminectomy L4-5 left Repeat Lumbar laminectomy L4-5 left Repeat Lumbar laminectomy L4-5 left Repeat Lumbar laminectomy L4-5 left Repeat Lumbar laminectomy L4-5 left Repeat Lumbar laminectomy L4-5 left Repeat Lumbar laminectomy L4-5 left lumbar spine LUMBAR SPINE BACK PAIN Reason for Visit Neck pain Tension headache Bilateral primary osteoarthritis of knee Urinary frequency Herniated nucleus pulposus, L4-5 left Herniated nucleus pulposus, L4-5 left High cholesterol Herniated nucleus pulposus, L4-5 left Status post discectomy for herniated nucleus pulposus S/P laminectomy S/P laminectomy Chief Complaint CERVICAL SPINE CERVICALGIA back 6 M FU back pain lumbar Room 3 CONCERN FOR UTI Radiculopathy, lumbar region lumbar spine LUMBAR SPINE Repeat Lumbar laminectomy L4-5 left Repeat Lumbar laminectomy L4-5 left Repeat Lumbar laminectomy L4-5 left Repeat Lumbar laminectomy L4-5 left Repeat Lumbar laminectomy L4-5 left Repeat Lumbar laminectomy L4-5 left Repeat Lumbar laminectomy L4-5 left lumbar spine LUMBAR SPINE BACK PAIN SOB Reason for Visit Neck pain Tension headache Bilateral primary osteoarthritis of knee Urinary frequency Herniated nucleus pulposus, L4-5 left Herniated nucleus pulposus, L4-5 left High cholesterol Herniated nucleus pulposus, L4-5 left Status post discectomy for herniated nucleus pulposus S/P laminectomy S/P laminectomy Chief Complaint CERVICALGIA back 6 M FU back pain lumbar Room 3 CONCERN FOR UTI Radiculopathy, lumbar region lumbar spine LUMBAR SPINE Repeat Lumbar laminectomy L4-5 left Repeat Lumbar laminectomy L4-5 left Repeat Lumbar laminectomy L4-5 left Repeat Lumbar laminectomy L4-5 left Repeat Lumbar laminectomy L4-5 left Repeat Lumbar laminectomy L4-5 left Repeat Lumbar laminectomy L4-5 left lumbar spine LUMBAR SPINE BACK PAIN SOB LUMBAR SPINE [facility] ER FU LUMBAR SPINE room 2 Reason for Visit Bilateral primary os teoarthritis of knee Urinary frequency Herniated nucleus pulposus, L4-5 left Herniated nucleus pulposus, L4-5 left High cholesterol Herniated nucleus pulposus, L4-5 left Status post discectomy for herniated nucleus pulposus S/P laminectomy S/P laminectomy S/P laminectomy BPH w urinary obs/LUTS Essential (primary) hypertension S/P laminectomy Sinus infection Hyperlipemia Type 2 diabetes mellitus Lumbosacral radiculopathy at L5 S/P laminectomy Chief Complaint LUMBAR SPINE Repeat Lumbar laminectomy L4-5 left Repeat Lumbar laminectomy L4-5 left Repeat Lumbar laminectomy L4-5 left Repeat Lumbar laminectomy L4-5 left Repeat Lumbar laminectomy L4-5 left Repeat Lumbar laminectomy L4-5 left Repeat Lumbar laminectomy L4-5 left lumbar spine LUMBAR SPINE BACK PAIN SOB LUMBAR SPINE [facility] ER FU LUMBAR SPINE room 2 LUMBAR SPINE FEVER/COUGH/VOMITING [facility] FU E ORDERS abd pain Reason for Visit Herniated nucleus pu lposus, L4-5 left High cholesterol Herniated nucleus pulposus, L4-5 left Status post discectomy for herniated nucleus pulposus S/P laminectomy S/P laminectomy S/P laminectomy BPH w urinary obs/LUTS Essential (primary) hypertension S/P laminectomy Sinus infection Hyperlipemia Type 2 diabetes mellitus Lumbosacral radiculopathy at L5 S/P laminectomy Lumbosacral radiculopathy at L5 S/P laminectomy Abdominal pain Bilirubinuria Contact with or exposure to other viral diseases Abdominal pain Bilirubinuria Chief Complaint LUMBAR SPINE Repeat Lumbar laminectomy L4-5 left Repeat Lumbar laminectomy L4-5 left Repeat Lumbar laminectomy L4-5 left Repeat Lumbar laminectomy L4-5 left Repeat Lumbar laminectomy L4-5 left Repeat Lumbar laminectomy L4-5 left Repeat Lumbar laminectomy L4-5 left lumbar spine LUMBAR SPINE BACK PAIN SOB LUMBAR SPINE [facility] ER FU LUMBAR SPINE room 2 LUMBAR SPINE FEVER/COUGH/VOMITING [facility] FU E ORDERS abd pain PENDING Reason for Visit Herniated nucleus pu lposus, L4-5 left High cholesterol Herniated nucleus pulposus, L4-5 left Status post discectomy for herniated nucleus pulposus S/P laminectomy S/P laminectomy S/P laminectomy BPH w urinary obs/LUTS Essential (primary) hypertension S/P laminectomy Sinus infection Hyperlipemia Type 2 diabetes mellitus Lumbosacral radiculopathy at L5 S/P laminectomy Lumbosacral radiculopathy at L5 S/P laminectomy Abdominal pain Bilirubinuria Contact with or exposure to other viral diseases Abdominal pain Bilirubinuria Chief Complaint LUMBAR SPINE Repeat Lumbar laminectomy L4-5 left Repeat Lumbar laminectomy L4-5 left Repeat Lumbar laminectomy L4-5 left Repeat Lumbar laminectomy L4-5 left Repeat Lumbar laminectomy L4-5 left Repeat Lumbar laminectomy L4-5 left Repeat Lumbar laminectomy L4-5 left lumbar spine LUMBAR SPINE BACK PAIN SOB LUMBAR SPINE [facility] ER FU LUMBAR SPINE room 2 LUMBAR SPINE FEVER/COUGH/VOMITING [facility] FU E ORDERS abd pain PENDING EPIGASTRIC PAIN Reason for Visit Herniated nucleus pu lposus, L4-5 left High cholesterol Herniated nucleus pulposus, L4-5 left Status post discectomy for herniated nucleus pulposus S/P laminectomy S/P laminectomy S/P laminectomy BPH w urinary obs/LUTS Essential (primary) hypertension S/P laminectomy Sinus infection Hyperlipemia Type 2 diabetes mellitus Lumbosacral radiculopathy at L5 S/P laminectomy Lumbosacral radiculopathy at L5 S/P laminectomy Abdominal pain Bilirubinuria Contact with or exposure to other viral diseases Abdominal pain Bilirubinuria Chief Complaint LUMBAR SPINE Repeat Lumbar laminectomy L4-5 left Repeat Lumbar laminectomy L4-5 left Repeat Lumbar laminectomy L4-5 left Repeat Lumbar laminectomy L4-5 left Repeat Lumbar laminectomy L4-5 left Repeat Lumbar laminectomy L4-5 left Repeat Lumbar laminectomy L4-5 left lumbar spine LUMBAR SPINE BACK PAIN SOB LUMBAR SPINE [facility] ER FU LUMBAR SPINE room 2 LUMBAR SPINE FEVER/COUGH/VOMITING [facility] FU E ORDERS abd pain PENDING EPIGASTRIC PAIN CVA Reason for Visit Herniated nucleus pu lposus, L4-5 left High cholesterol Herniated nucleus pulposus, L4-5 left Status post discectomy for herniated nucleus pulposus S/P laminectomy S/P laminectomy S/P laminectomy BPH w urinary obs/LUTS Essential (primary) hypertension S/P laminectomy Sinus infection Hyperlipemia Type 2 diabetes mellitus Lumbosacral radiculopathy at L5 S/P laminectomy Lumbosacral radiculopathy at L5 S/P laminectomy Abdominal pain Bilirubinuria Contact with or exposure to other viral diseases Abdominal pain Bilirubinuria Acute CVA (cerebrovascular accident) Altered mental status Expressive aphasia Chief Complaint LUMBAR SPINE Repeat Lumbar laminectomy L4-5 left Repeat Lumbar laminectomy L4-5 left Repeat Lumbar laminectomy L4-5 left Repeat Lumbar laminectomy L4-5 left Repeat Lumbar laminectomy L4-5 left Repeat Lumbar laminectomy L4-5 left Repeat Lumbar laminectomy L4-5 left lumbar spine LUMBAR SPINE BACK PAIN SOB LUMBAR SPINE [facility] ER FU LUMBAR SPINE room 2 LUMBAR SPINE FEVER/COUGH/VOMITING [facility] FU E ORDERS abd pain PENDING EPIGASTRIC PAIN CVA Cerebrovascular accident Cerebrovascular accident Cerebrovascular accident Cerebrovascular accident Cerebrovascular accident Cerebrovascular accident Cerebrovascular accident Cerebrovascular accident Reason for Visit Herniated nucleus pu lposus, L4-5 left High cholesterol Herniated nucleus pulposus, L4-5 left Status post discectomy for herniated nucleus pulposus S/P laminectomy S/P laminectomy S/P laminectomy BPH w urinary obs/LUTS Essential (primary) hypertension S/P laminectomy Sinus infection Hyperlipemia Type 2 diabetes mellitus Lumbosacral radiculopathy at L5 S/P laminectomy Lumbosacral radiculopathy at L5 S/P laminectomy Abdominal pain Bilirubinuria Contact with or exposure to other viral diseases Abdominal pain Bilirubinuria Acute CVA (cerebrovascular accident) Altered mental status Discitis of lumbar region Expressive aphasia S/P laminectomy Chief Complaint LUMBAR SPINE Repeat Lumbar laminectomy L4-5 left Repeat Lumbar laminectomy L4-5 left Repeat Lumbar laminectomy L4-5 left Repeat Lumbar laminectomy L4-5 left Repeat Lumbar laminectomy L4-5 left Repeat Lumbar laminectomy L4-5 left Repeat Lumbar laminectomy L4-5 left lumbar spine LUMBAR SPINE BACK PAIN SOB LUMBAR SPINE [facility] ER FU LUMBAR SPINE room 2 LUMBAR SPINE FEVER/COUGH/VOMITING [facility] FU E ORDERS abd pain PENDING EPIGASTRIC PAIN CVA Cerebrovascular accident Cerebrovascular accident Cerebrovascular accident Cerebrovascular accident Cerebrovascular accident Cerebrovascular accident Cerebrovascular accident Cerebrovascular accident SPINE OSTEOMYELITIS PICK LINE BLEEDING PICK LINE BLEEDING Reason for Visit Herniated nucleus pu lposus, L4-5 left High cholesterol Herniated nucleus pulposus, L4-5 left Status post discectomy for herniated nucleus pulposus S/P laminectomy S/P laminectomy S/P laminectomy BPH w urinary obs/LUTS Essential (primary) hypertension S/P laminectomy Sinus infection Hyperlipemia Type 2 diabetes mellitus Lumbosacral radiculopathy at L5 S/P laminectomy Lumbosacral radiculopathy at L5 S/P laminectomy Abdominal pain Bilirubinuria Contact with or exposure to other viral diseases Abdominal pain Bilirubinuria Acute CVA (cerebrovascular accident) Altered mental status Discitis of lumbar region Expressive aphasia S/P laminectomy Chief Complaint Repeat Lumbar violette ctomy L4-5 left Repeat Lumbar laminectomy L4-5 left Repeat Lumbar laminectomy L4-5 left Repeat Lumbar laminectomy L4-5 left Repeat Lumbar laminectomy L4-5 left Repeat Lumbar laminectomy L4-5 left Repeat Lumbar laminectomy L4-5 left lumbar spine LUMBAR SPINE BACK PAIN SOB LUMBAR SPINE [facility] FU LUMBAR SPINE room 2 LUMBAR SPINE FEVER/COUGH/VOMITING [facility] FU E ORDERS abd pain PENDING EPIGASTRIC PAIN CVA Cerebrovascular accident Cerebrovascular accident Cerebrovascular accident Cerebrovascular accident Cerebrovascular accident Cerebrovascular accident Cerebrovascular accident Cerebrovascular accident SPINE OSTEOMYELITIS PICK LINE BLEEDING PICK LINE BLEEDING [facility] Reason for Visit Herniated nucleus pu lposus, L4-5 left Status post discectomy for herniated nucleus pulposus Sinus infection Abdominal pain Bilirubinuria Contact with or exposure to other viral diseases Abdominal pain Bilirubinuria Discitis of lumbar region Altered mental status Expressive aphasia Chief Complaint Repeat Lumbar violette ctomy L4-5 left Repeat Lumbar laminectomy L4-5 left Repeat Lumbar laminectomy L4-5 left Repeat Lumbar laminectomy L4-5 left Repeat Lumbar laminectomy L4-5 left Repeat Lumbar laminectomy L4-5 left Repeat Lumbar laminectomy L4-5 left lumbar spine LUMBAR SPINE BACK PAIN SOB LUMBAR SPINE [facility] FU LUMBAR SPINE room 2 LUMBAR SPINE FEVER/COUGH/VOMITING [facility] FU E ORDERS abd pain PENDING EPIGASTRIC PAIN CVA Cerebrovascular accident Cerebrovascular accident Cerebrovascular accident Cerebrovascular accident Cerebrovascular accident Cerebrovascular accident Cerebrovascular accident Cerebrovascular accident SPINE OSTEOMYELITIS PICK LINE BLEEDING PICK LINE BLEEDING [facility] Discharge FU Reason for Visit Herniated nucleus pu lposus, L4-5 left Status post discectomy for herniated nucleus pulposus Essential (primary) hypertension Hyperlipemia Type 2 diabetes mellitus Sinus infection Lumbosacral radiculopathy at L5 Lumbosacral radiculopathy at L5 Abdominal pain Bilirubinuria Contact with or exposure to other viral diseases Abdominal pain Bilirubinuria Discitis of lumbar region Altered mental status Expressive aphasia Degeneration of intervertebral disc of lumbosacral region Discitis of lumbar region Lumbosacral radiculopathy at L5 Chief Complaint SOB LUMBAR SPINE [facility] ER FU LUMBAR SPINE room 2 LUMBAR SPINE FEVER/COUGH/VOMITING [facility] FU E ORDERS abd pain PENDING EPIGASTRIC PAIN CVA Cerebrovascular accident Cerebrovascular accident Cerebrovascular accident Cerebrovascular accident Cerebrovascular accident Cerebrovascular accident Cerebrovascular accident Cerebrovascular accident SPINE OSTEOMYELITIS PICK LINE BLEEDING PICK LINE BLEEDING [facility] Discharge FU SPINE OSTEOMYELITIS RECURRENT LOW BACK PAIN, RECENT HX OF DISCITIS RECURRENT LOW BACK PAIN, RECENT HX OF DISCITIS RECURRENT LOW BACK PAIN, RECENT HX OF DISCITIS Reason for Visit Essential (primary) hypertension Hyperlipemia Type 2 diabetes mellitus Sinus infection Lumbosacral radiculopathy at L5 Lumbosacral radiculopathy at L5 Abdominal pain Bilirubinuria Contact with or exposure to other viral diseases Abdominal pain Bilirubinuria Discitis of lumbar region Altered mental status Expressive aphasia Degeneration of intervertebral disc of lumbosacral region Discitis of lumbar region Lumbosacral radiculopathy at L5 Acute lumbar radiculopathy JUNI (acute kidney injury) Debility History of discitis History of osteomyelitis Recurrent low back pain Renal insufficiency Chief Complaint LUMBAR SPINE [facility] ER FU LUMBAR SPINE room 2 LUMBAR SPINE FEVER/COUGH/VOMITING [facility] FU E ORDERS abd pain PENDING EPIGASTRIC PAIN CVA Cerebrovascular accident Cerebrovascular accident Cerebrovascular accident Cerebrovascular accident Cerebrovascular accident Cerebrovascular accident Cerebrovascular accident Cerebrovascular accident SPINE OSTEOMYELITIS PICK LINE BLEEDING PICK LINE BLEEDING [facility] Discharge FU SPINE OSTEOMYELITIS RECURRENT LOW BACK PAIN, RECENT HX OF DISCITIS RECURRENT LOW BACK PAIN, RECENT HX OF DISCITIS RECURRENT LOW BACK PAIN, RECENT HX OF DISCITIS Reason for Visit Essential (primary) hypertension Hyperlipemia Type 2 diabetes mellitus Sinus infection Lumbosacral radiculopathy at L5 Lumbosacral radiculopathy at L5 Abdominal pain Bilirubinuria Contact with or exposure to other viral diseases Abdominal pain Bilirubinuria Discitis of lumbar region Altered mental status Expressive aphasia Degeneration of intervertebral disc of lumbosacral region Discitis of lumbar region Lumbosacral radiculopathy at L5 Acute lumbar radiculopathy JUNI (acute kidney injury) Debility History of discitis History of osteomyelitis Recurrent low back pain Renal insufficiency Chief Complaint Admit Date L. FOOT /ANK RADIATES LEG PAIN October 04, 2024 9:49am Syncopal Episode January 27, 2025 10:4 1am Reason for Visit Admit Date Status post lumbar spinal fusion 2024 9:49am Left foot pain October 04, 2024 9:49am Chief Complaint Admit Date L. FOOT /ANK RADIATES LEG PAIN October 04, 2024 9:49am Syncopal Episode January 27, 2025 10:4 1am LUMBAR SPINE January 31, 2025 7:43 am room 3 January 31, 2025 8:14 am Reason for Visit Admit Date Status post lumbar spinal fusion 2024 9:49am Left foot pain October 04, 2024 9:49am Essential (primary) hypertension January 272024 10:41am Hyperlipemia January 27, 2025 10:4 1am Type 2 diabetes mellitus January 27, 2025 10:41am Vasovagal episode January 27, 2025 10:4 1am Chief Complaint Admit Date Syncopal Episode January 27, 2025 10:4 1am LUMBAR SPINE January 31, 2025 7:43 am room 3 January 31, 2025 8:14 am Reason for Visit Admit Date Essential (primary) hypertension January 272024 10:41am Hyperlipemia January 27, 2025 10:4 1am Type 2 diabetes mellitus January 27, 2025 10:41am Vasovagal episode January 27, 2025 10:4 1am Cervical radiculopathy January 31, 2025 7 :43am History of fusion of cervical spine January 31, 2025 7:43am Scoliosis January 31, 2025 7:43 am Status post lumbar spinal fusion January 312024 7:43am Chief Complaint Admit Date Syncopal Episode January 27, 2025 10:4 1am LUMBAR SPINE January 31, 2025 7:43 am room 3 January 31, 2025 8:14 am 1 Y FU February 25, 2025 8:41 am Reason for Visit Admit Date Essential (primary) hypertension January 272024 10:41am Hyperlipemia January 27, 2025 10:4 1am Type 2 diabetes mellitus January 27, 2025 10:41am Vasovagal episode January 27, 2025 10:4 1am Cervical radiculopathy January 31, 2025 7 :43am History of fusion of cervical spine January 31, 2025 7:43am Scoliosis January 31, 2025 7:43 am Status post lumbar spinal fusion January 312024 7:43am Essential (primary) hypertension February 252024 8:41am Hyperlipemia February 25, 2025 8:41 am Syncope February 25, 2025 8:41 am H/O coronary artery bypass surgery February 25, 2025 8:41am Nonrheumatic aortic (valve) stenosis wit h insufficiency February 25, 2025 8:41am Chief Complaint Admit Date Syncopal Episode January 27, 2025 10:4 1am LUMBAR SPINE January 31, 2025 7:43 am room 3 January 31, 2025 8:14 am 1 Y FU February 25, 2025 8:41 am CERVICAL RADICULOPATHY, OSTEOMYLITIS L-S PINE March 05, 2025 9:30am straight line edger to read SYNCOPE March 05, 2025 1:03 pm Reason for Visit Admit Date Essential (primary) hypertension January 272024 10:41am Hyperlipemia January 27, 2025 10:4 1am Type 2 diabetes mellitus January 27, 2025 10:41am Vasovagal episode January 27, 2025 10:4 1am Cervical radiculopathy January 31, 2025 7 :43am History of fusion of cervical spine January 31, 2025 7:43am Scoliosis January 31, 2025 7:43 am Status post lumbar spinal fusion January 312024 7:43am Hyperlipemia February 25, 2025 8:41 am Syncope February 25, 2025 8:41 am H/O coronary artery bypass surgery February 25, 2025 8:41am Nonrheumatic aortic (valve) stenosis wit h insufficiency February 25, 2025 8:41am Medications Administered Section Inactive Administered Medications - up to 3 most recent administrations Medication Order MAR Action Action Date Dose Rate Site benzocaine 20% 1 [place] (TOPEX) 1 [place], TOPICAL, DIRECTED, Starting on Mon09/27/22 at 1000, [...] FOR PROCEDURAL SEDATION ONLY, Intraprocedure Given by [facility] 09/27/2022 9:46 AM EST 50 mcg Given by [facility] 09/27/2022 9:44 AM EST 50 mcg lactated ringers iv infusion 30 mL/hr, INTRAVENOUS, CONTINUOUS, Starting on Mon09/27/22 at 0800, Until Mon09/27/22 at 1031, Preprocedure New Bag/Syringe/Bottle 09/27/2022 9:58 AM EST 30 mL/hr 30 mL/hr New Bag/Syringe/Bottle 09/27/2022 8:00 AM EST 30 mL/hr 3 0 mL/hr Hand, Right midazolam 1-5 mg injection (VERSED) 1-5 mg, INTRAVENOUS, DIRECTED, Starting on Mon09/27/22 at 1000, Until Mon09/27/22 at 1359, DOSING DIRECTED BY PHYSICIAN FOR PROCEDURAL SEDATION ONLY, Intraprocedure Given 09/27/2022 10:13 AM EST 2 mg Given by [facility] 09/27/2022 9:46 AM EST 2 mg Given by [facility] 09/27/2022 9:44 AM EST 3 mg ondansetron (PF) 4 mg injection (ZOFRAN) 4 mg, INTRAVENOUS, DIRECTED, Starting on Mon09/27/22 at 1030, Until Mon09/27/22 at 1429, DOSING DIRECTED BY PHYSICIAN FOR PROCEDURAL SEDATION ONLY, Intraprocedure Given 09/27/2022 10:25 AM EST 4 mg Additional Source Comments (unrecognized sect ion and content) No Status Records FoundNo Status Records FoundNo Status Records FoundNo Status Records FoundNo Status Records Found INFORMATION SOURCE (unrecogn ized section and content) DATE CREATED AUTHOR 02/05/2018 [facility] DATE CREATED AUTHOR AUTHOR'S ORGANIZ ATION 02/05/2018 [facility] DATE CREATED AUTHOR AUTHOR'S ORGANIZ ATION 11/16/2022 [facility] DATE CREATED AUTHOR AUTHOR'S ORGANIZ ATION 09/29/2023 [facility] DATE CREATED AUTHOR AUTHOR'S ORGANIZ ATION 03/13/2025 [facility] Goals (unrecognized section and content) Goals may be documented in a n alternate sectionGoals may be documented in an alternate sectionGoals may be documented in an alternate sectionGoals may be documented in an alternate sectionGoals may be documented in an alternate sectionGoals may be documented in an alternate sectionGoals may be documented in an alternate sectionGoals may be documented in an alternate sectionGoals may be documented in an alternate sectionGoals may be documented in an alternate sectionGoals may be documented in an alternate section Source Comments (unrecognize d section and content) In the event this informatio n is protected by the Federal Confidentiality of Alcohol and Drug Abuse Patient Records regulations: The Federal rules restrict any use of the information to criminally investigate or prosecute any alcohol or drug abuse patient.[facility] the event this information is protected by the Federal Confidentiality of Alcohol and Drug Abuse Patient Records regulations: The Federal rules restrict any use of the information to criminally investigate or prosecute any alcohol or drug abuse patient.[facility] the event this information is protected by the Federal Confidentiality of Alcohol and Drug Abuse Patient Records regulations: The Federal rules restrict any use of the information to criminally investigate or prosecute any alcohol or drug abuse patient.[facility] the event this information is protected by the Federal Confidentiality of Alcohol and Drug Abuse Patient Records regulations: The Federal rules restrict any use of the information to criminally investigate or prosecute any alcohol or drug abuse patient.[facility] the event this information is protected by the Federal Confidentiality of Alcohol and Drug Abuse Patient Records regulations: The Federal rules restrict any use of the information to criminally investigate or prosecute any alcohol or drug abuse patient.[facility] the event this information is protected by the Federal Confidentiality of Alcohol and Drug Abuse Patient Records regulations: The Federal rules restrict any use of the information to criminally investigate or prosecute any alcohol or drug abuse patient.[facility] the event this information is protected by the Federal Confidentiality of Alcohol and Drug Abuse Patient Records regulations: The Federal rules restrict any use of the information to criminally investigate or prosecute any alcohol or drug abuse patient.[facility] the event this information is protected by the Federal Confidentiality of Alcohol and Drug Abuse Patient Records regulations: The Federal rules restrict any use of the information to criminally investigate or prosecute any alcohol or drug abuse patient.[facility] the event this information is protected by the Federal Confidentiality of Alcohol and Drug Abuse Patient Records regulations: The Federal rules restrict any use of the information to criminally investigate or prosecute any alcohol or drug abuse patient.[facility] the event this information is protected by the Federal Confidentiality of Alcohol and Drug Abuse Patient Records regulations: The Federal rules restrict any use of the information to criminally investigate or prosecute any alcohol or drug abuse patient.[facility] the event this information is protected by the Federal Confidentiality of Alcohol and Drug Abuse Patient Records regulations: The Federal rules restrict any use of the information to criminally investigate or prosecute any alcohol or drug abuse patient.[facility] Center[facility] the event this information is protected by the Federal Confidentiality of Alcohol and Drug Abuse Patient Records regulations: The Federal rules restrict any use of the information to criminally investigate or prosecute any alcohol or drug abuse patient.[facility] Center[facility] the event this information is protected by the Federal Confidentiality of Alcohol and Drug Abuse Patient Records regulations: The Federal rules restrict any use of the information to criminally investigate or prosecute any alcohol or drug abuse patient.[facility] Center[facility] the event this information is protected by the Federal Confidentiality of Alcohol and Drug Abuse Patient Records regulations: The Federal rules restrict any use of the information to criminally investigate or prosecute any alcohol or drug abuse patient.[facility] Reason for Visit (unrecogniz ed section and content) Reason Comments Consult Colonoscopy Reason Comments 09/27/2022 colon asc Patient Update Reason Comments Add EGD Reason Comments Follow Up colonoscopy Reason Comments Results CT scan from [facility] Reason Comments Abdominal Pain Reason Comments Consult Reason Comments Request Outside Medical Records Reason Comments Post op complications Reason Comments Post Op Lap chioma Reason Onset Date Comments Refill Request 04/18/2023 Care Teams (unrecognized sec tion and content) Team Status: Active Member Role Status Dates Dr. Marshall Bear MD Primary Care Provider Active Team Status: Inactive Member Role Status Dates Dr. Marshall Bear MD Primary Care Provider Active Start: October 04, 2024 End: October 04, 2024 Dr. Talat Church MD Attending Provider Active Start: October 04, 2024 End: October 04, 2024 Dr. Julio Daniel DPM Referring Provider Active Start: October 04, 2024 End: October 04, 2024 Team Status: Inactive Member Role Status Dates Dr. Marshall Bear MD Primary Care Provider Active Start: January 27, 2025 End: January 27, 2025 Dr. Marshall Bear MD Attending Provider Active Start: January 27, 2025 End: January 27, 2025 Team Status: Active Member Role Status Dates Dr. Marshall Bear MD Primary Care Provider Active Start: January 28, 2025 Dr. Marshall Bear MD Attending Provider Active Start: January 28, 2025 Team Status: Inactive Member Role Status Dates Dr. Marshall Bear MD Primary Care Provider Active Start: January 31, 2025 End: January 31, 2025 Dr. Marshall Bear MD Referring Provider Active Start: January 31, 2025 End: January 31, 2025 Dr. Bjorn Bradshaw MD Attending Provider Active Start: January 31, 2025 End: January 31, 2025 Team Status: Inactive Member Role Status Dates Dr. Marshall Bear MD Primary Care Provider Active Start: January 31, 2025 End: January 31, 2025 Dr. Jon Cast MD Attending Provider Active S tart: January 31, 2025 End: Tawana 20th, 2025 Team Status: Active Member Role Status Dates Dr. Weston Gutierrez MD Family Provider Active Marshall Bear MD Primary Care Provider Active Team Status: Inactive Member Role Status Dates Marshall Bear MD Primary Care Provider, Referring P rovider Active Dr. Talat Lund DO Attending Provider Active Team Status: Inactive Member Role Status Dates Marshall Bear MD Primary Care Provider, Referring P rovider Active Reyna STRONG PA Attending Provider Active Team Status: Inactive Member Role Status Dates Marshall Bear MD Primary Care Provider, Referring P rovider Active Rafaela Doran PA Attending Provider Active Team Status: Inactive Member Role Status Dates Marshall Bear MD Primary Care Provider Active Dr. Marshall Bear MD Attending Provider Active Team Status: Inactive Member Role Status Dates Marshall Bear MD Primary Care Provider Active Dr. Julio Garcia MD Attending Provider, Referring Provider Active Team Status: Inactive Member Role Status Dates Marshall Bear MD Primary Care Provider Active Dr. Scotty Warner DO Emergency Provider Active Composition Siding Worker Relationship Specialty Start Date End Date Marshall Bear MD [address] [facility] [place] [address] PCP - General Internal Medicine 10/31/22 Composition Siding Worker Relationship Specialty Start Date End Date Marshall Bear MD [address] [address] PCP - General Internal Medicine 10/31/22 Team Status: Active Member Role Status Dates Dr. Weston Gutierrez MD Family Provider Active Dr. Marshall Bear MD Primary Care Provider Active Team Status: Inactive Member Role Status Dates Marshall HARKINS MD Primary Care Provider Active Dr. Marshall Bear MD Attending Provider Active Team Status: Inactive Member Role Status Dates Marshall HARKINS MD Primary Care Provider, Referrin g Provider Active Reyna STRONG PA Attending Provider Active Team Status: Inactive Member Role Status Dates Marshall HARKINS MD Primary Care Provider, Referrin g Provider Active Rafaela Doran PA Attending Provider Active Team Status: Inactive Member Role Status Dates Marshall HARKINS MD Primary Care Provider, Referrin g Provider Active Dr. Talat Lund DO Attending Provider Active Team Status: Inactive Member Role Status Dates Marshall HARKINS MD Primary Care Provider Active Dr. Scotty Warner DO Attending Provider, Gracie fernández Active Team Status: Inactive Member Role Status Dates Dr. Elvia Pineda MD Emergency Provider Active Dr. Marshall Bear MD Primary Care Provider Active Composition Siding Worker Relationship Specialty Start Date End Date Marshall Bear MD [address] [place] [address] PCP - General Internal Medicine 10/31/22 Composition Siding Worker Relationship Specialty Start Date End Date Marshall Bear MD [address] [place] [place], [place] [id number] PCP - General Internal Medicine 10/31/22 Team Status: Inactive Member Role Status Dates Marshall HARKINS MD Referring Provider Active Dr. Jon Cast MD Active Rosa Maria STRONG, PA Attending Provider Active Dr. Marshall Bear MD Primary Care Provider Active Team Status: Inactive Member Role Status Dates Dr. Marshall Bear MD Primary Care Provider, Referri ng Provider Active Carson STRONG, PA Attending Provider Active Team Status: Active Member Role Status Dates Dr. Marshall Bear MD Primary Care Provider Active Dr. Jon Cast MD Attending Provider Active Team Status: Inactive Member Role Status Dates Dr. Marshall Bear MD Primary Care Provider, Referri ng Provider Active Dr. Ventura Godoy DO Attending Provider Active Team Status: Inactive Member Role Status Dates Dr. Marshall Bear MD Primary Care Provider Active Dr. Jon Cast MD Attending Provider Active Team Status: Inactive Member Role Status Dates Dr. Marshall Bear MD Primary Care Provider Active Rosa Maria STRONG, PA Attending Provider, Referr ing Provider Active Team Status: Inactive Member Role Status Dates Dr. Marshall Bear MD Primary Care Provider Active Reyna STRONG, PA Attending Provider, Referring Provi wilmar Active Composition Siding Worker Relationship Specialty Start Date End Date Marshall Bear MD [address] [place] [address] PCP - General Internal Medicine 10/31/22 Team Status: Inactive Member Role Status Dates Dr. Marshall Bear MD Primary Care Provider Active Dr. Ventura Godoy DO Attending Provider, Referring P pradeep Active Team Status: Inactive Member Role Status Dates Dr. Marshall Bear MD Primary Care Provider, Attendi ng Provider Active Team Status: Inactive Member Role Status Dates Dr. Marshall Bear MD Primary Care Provider Active Dr. Julio Garcia MD Attending Provider, Referring Provider Active Team Status: Inactive Member Role Status Dates Dr. Marshall Bear MD Primary Care Provider Active Dr. Samy Aguilar DO Emergency Provider Active Team Status: Inactive Member Role Status Dates Dr. Marshall Bear MD Primary Care Provider Active Dr. Ryan Vásquez DO Emergency Provider Active Team Status: Active Member Role Status Dates Dr. Marshall Bear MD Primary Care Provider Active Carson Lema PA, PA Attending Provider Active Team Status: Inactive Member Role Status Dates Dr. Marshall Bear MD Primary Care Provider Active Dr. Samy Aguilar DO Attending Provider, Emergency Pr ovider Active Team Status: Inactive Member Role Status Dates Dr. Marshall Bear MD Primary Care Provider Active Dr. Ryan Vásquez DO Attending Provider, Emergency Provider Active Team Status: Active Member Role Status Dates Dr. Marshall Bear MD Primary Care Provider Active Dr. Ventura Godoy DO Attending Provide r, Referring Provider, Other Provider Active Team Status: Active Member Role Status Dates Dr. Marshall Bear MD Primary Care Provider Active Dr. Ventura Godoy DO Admit Provider, A ttending Provider, Referring Provider, Other Provider Active Team Status: Active Member Role Status Dates Dr. Marshall Bear MD Primary Care Provider Active Dr. Ventura Godoy DO Admit Provider, R eferring Provider, Other Provider Active Dr. Dimas [place] MD Attending Provider, Other Provider Active Team Status: Active Member Role Status Dates Dr. Marshall Bear MD Primary Care Provider Active Dr. Ventura Godoy DO Admit Provider, A ttending Provider, Referring Provider, Other Provider Active Dr. Dimas [place] MD Other Provider Active Dr. Vipul Vazquez DO Other Provider Active Team Status: Active Member Role Status Dates Dr. Marshall Bear MD Primary Care Provider Active Dr. Ventura Godoy DO Admit Provider, R eferring Provider, Other Provider Active Dr. Dimas [place] MD Other Provider Active Dr. Vipul Vazquez DO Attending Provider, Other Pro vider Active Team Status: Inactive Member Role Status Dates Dr. Marshall Bear MD Primary Care Provider Active Carson STRONG, PA Attending Provider Active Team Status: Inactive Member Role Status Dates Dr. Marshall Bear MD Primary Care Provider Active Dr. Ventura Godoy DO Admit Provider, A ttending Provider, Referring Provider Active Dr. Dimas [place] MD Other Provider Active Dr. Vipul Vazquez DO Other Provider Active Team Status: Active Member Role Status Dates Dr. Marshall Bear MD Primary Care Provider Active Dr. Ventura Godoy DO Admit Provider, Other Provider Active Dr. Dimas [place] MD Other Provider Active Dr. Vipul Vazquez DO Attending Provider, Other Pro vider Active Team Status: Inactive Member Role Status Dates Dr. Marshall Bear MD Primary Care Provider Active Dr. Elvia Pineda MD Emergency Provider Active Team Status: Inactive Member Role Status Dates Dr. Marshall Bear MD Primary Care Provider Active Dr. Elvia Pineda MD Attending Provider, Emergency Provider Active Team Status: Inactive Member Role Status Dates Dr. Marshall Bear MD Primary Care Pro vider, Attending Provider, Referring Provider Active Composition Siding Worker Relationship Specialty Start Date End Date Marshall Bear MD [address] [place] [address] PCP - General Internal Medicine 10/31/22 Team Status: Inactive Member Role Status Dates Dr. Marshall Bear MD Primary Care Provider, Referri ng Provider Active Jeff Meek PA, PA Attending Provider Active Team Status: Active Member Role Status Dates Dr. Marshall Bear MD Primary Care Provider Active Jeff STRONG, PA Attending Provider, Referring Pr ovider Active Team Status: Active Member Role Status Dates Dr. Marshall Bear MD Primary Care Pro vider, Attending Provider, Referring Provider Active Team Status: Inactive Member Role Status Dates Dr. Marshall Bear MD Primary Care Provider Active Jeff Meek PA, PA Attending Provider, Referring Pr yesi Active Team Status: Active Member Role Status Dates Dr. Marshall Bear MD Primary Care Provider Active Dr. Vin Neff MD Attending Provider Active Composition Siding Worker Relationship Specialty Start Date End Date Marshall Bear MD [address] [place] [address] PCP - General Internal Medicine 10/31/22 Team Status: Inactive Member Role Status Dates Dr. Marshall Bear MD Primary Care Provider Active Dr. Ben Marshall MD Attending Provider, Referring Provider Active Team Status: Active Member Role Status Dates Dr. Marshall Bear MD Primary Care Provider, Referri ng Provider Active Dr. Vin Neff MD Attending Provider Active Team Status: Active Member Role Status Dates Dr. Marshall Bear MD Primary Care Provider, Attendi ng Provider Active Team Status: Active Member Role Status Dates Dr. Marshall Bear MD Primary Care Provider Active Dr. Kayli Granados DO Emergency Provider Active Dr. Sara Reaves MD Admit Provider, Attending Prov ider Active Team Status: Active Member Role Status Dates Dr. Marshall Bera MD Primary Care Provider Active Dr. Kayli Granados DO Emergency Provider Active Dr. Sara Reaves MD Admit Provider, Attending Provider, Other Provider Active Team Status: Active Member Role Status Dates Dr. Marshall Bear MD Primary Care Provider Active Dr. Kayli Granados DO Emergency Provider Active Dr. Sara Reaves MD Admit Provider, Other Provider Active Claudy Tripathi MD Other Provider Active Dr. Meliton Coronel MD Other Provider Active Jessica Ang MD Other Provider Active Dr. Arabella Walter , Other Provider Active Dr. Susie Augustin MD Other Provider Active Dr. Ben Velasco MD Other Provider Active Dr. Ivonne Holloway MD Other Provider Active Dr. Adelso Whitehead MD Other Provider Active Dr. Ham Giron MD Other Provider Active Emily Wilson MD Other Provider Active Dr. Monster Marina MD Other Provider Active Dr. Saida Cantu MD Other Provider Active Dr. Bull Sanchez MD Other Provider Active Dr. Cheryl Gandhi MD Other Provider Active Dr. Tray Cortes MD Other Provider Active Dr. Dae Das MD Other Provider Active Dr. Zach Cartagena MD Other Provider Active Dr. Melody Mar MD Other Provider Active Modesto Abarca MD Other Provider Active Dr. Ochoa Figueroa MD Attending Provider, Other Provi wilmar Active Dr. Tarik Wilkinson MD Other Provider Active Dr. Ventura Godoy DO Other Provider Active Team Status: Active Member Role Status Dates Dr. Marshall Bear MD Primary Care Provider Active Dr. Kayli Granados , Emergency Provider Active Dr. Sara Reaves MD Admit Provider, Other Provider Active Claudy Tripathi MD Other Provider Active Dr. Meliton Coronel MD Other Provider Active Jessica Ang MD Other Provider Active Dr. Arabella Walter DO Other Provider Active Dr. Susie Augustin MD Other Provider Active Dr. Ben Velasco MD Other Provider Active Dr. Ivonne Holloway MD Other Provider Active Dr. Adelso Whitehead MD Other Provider Active Dr. Ham Giron MD Other Provider Active Emily Wilson MD Other Provider Active Dr. Monster Marina MD Other Provider Active Dr. Saida Cantu MD Other Provider Active Dr. Bull Sanchez MD Other Provider Active Dr. Cheryl Gandhi MD Other Provider Active Dr. Tray Cortes MD Other Provider Active Dr. Dae Das MD Other Provider Active Dr. Zach Cartagena MD Other Provider Active Dr. Melody Mar MD Other Provider Active Modesto Abarca MD Other Provider Active Dr. Ochoa Figueroa MD Other Provider Active Dr. Tarik Wilkinson MD Other Provider Active Dr. Ventura Godoy DO Attending Provider, Other Provi wilmar Active Team Status: Active Member Role Status Dates Dr. Marshall Bear MD Primary Care Provider Active Dr. Kayli Granados DO Emergency Provider Active Dr. Sara Reaves MD Admit Provider, Other Provider Active Claudy Tripathi MD Other Provider Active Dr. Meliton Coronel MD Other Provider Active Jessica Ang MD Other Provider Active Dr. Arabella Jose Angel , DO Other Provider Active Dr. Susie Augustin MD Other Provider Active Dr. Ben Velasco MD Other Provider Active Dr. Ivonne Holloway MD Other Provider Active Dr. Adelso Whitehead MD Other Provider Active Dr. Ham Giron MD Other Provider Active Emily Wilson MD Other Provider Active Dr. Monster Marina MD Other Provider Active Dr. Saida Cantu MD Other Provider Active Dr. Bull Sanchez MD Other Provider Active Dr. Cheryl Gandhi MD Other Provider Active Dr. Tray Cortes MD Other Provider Active Dr. Dae Das MD Other Provider Active Dr. Zach Cartagena MD Other Provider Active Dr. Melody Mar MD Other Provider Active Modesto Abarca MD Other Provider Active Dr. Ochoa Figueroa MD Other Provider Active Dr. Tarik Wilkinson MD Other Provider Active Dr. Ventura Godoy , DO Other Provider Active Dr. Jaspreet Armstrong MD Other Provider Active Dr. Bjorn Bradshaw MD Attending Provider Active Team Status: Active Member Role Status Dates Dr. Marshall Bear MD Primary Care Provider Active Dr. Kayli Granados , Emergency Provider Active Dr. Sara Reaves MD Admit Provider, Other Provider Active Claudy Tripathi MD Other Provider Active Dr. Meliton Coronel MD Other Provider Active Jessica Ang MD Other Provider Active Dr. Arabella Walter , DO Other Provider Active Dr. Susie Augustin MD Other Provider Active Dr. Ben Velasco MD Other Provider Active Dr. Ivonne Holloway MD Other Provider Active Dr. Adelso Whitehead MD Other Provider Active Dr. Ham Giron MD Other Provider Active Emily Wilson MD Other Provider Active Dr. Monster Marina MD Other Provider Active Dr. Saida Cantu MD Other Provider Active Dr. Bull Sanchez MD Other Provider Active Dr. Cheryl Gandhi MD Other Provider Active Dr. Tray Cortes MD Other Provider Active Dr. Dae Das MD Other Provider Active Dr. Zach Cartagena MD Other Provider Active Dr. Melody Mar MD Other Provider Active Modesto Abarca MD Other Provider Active Dr. Ochoa Figueroa MD Attending Provider, Other Provi wilmar Active Dr. Tarik Wilkinson MD Other Provider Active Dr. Ventura Godoy , DO Other Provider Active Dr. Jaspreet Armstrong MD Other Provider Active Team Status: Active Member Role Status Dates Dr. Marshall Bear MD Primary Care Provider Active Dr. Kayli Granados DO Emergency Provider Active Dr. Sara Reaves MD Admit Provider, Other Provider Active Dr. Tarik Wilkinson MD Other Provider Active Dr. Ventura Godoy , DO Attending Provider, Other Provi wilmar Active Dr. Jaspreet Armstrong MD Other Provider Active Dr. Vin Wheatley , DO Other Provider Active Dr. Ochoa Figueroa MD Other Provider Active Team Status: Active Member Role Status Dates Dr. Marshall Bear MD Primary Care Provider Active Dr. Kayli Granados , DO Emergency Provider Active Dr. Sara Reaves MD Admit Provider, Other Provider Active Dr. Tarik Wilkinson MD Other Provider Active Dr. Ventura Godoy , DO Other Provider Active Dr. Jaspreet Armstrong MD Other Provider Active Dr. Vin Wheatley , DO Attending Provider, Other Provid er Active Dr. Ochoa Figueroa MD Other Provider Active Team Status: Inactive Member Role Status Dates Dr. Marshall Bear MD Primary Care Provider Active Dr. Kayli Granados , DO Emergency Provider Active Dr. Sara Reaves MD Admit Provider, Other Provider Active Dr. Tarik Wilkinson MD Other Provider Active Dr. Ventura Godoy , DO Other Provider Active Dr. Jaspreet Armstrong MD Other Provider Active Dr. Vin Wheatley , DO Attending Provider Active Dr. Ochoa Figueroa MD Other Provider Active Team Status: Active Member Role Status Dates Dr. Marshall Bear MD Primary Care Provider Active Dr. Kayli Granados , DO Emergency Provider Active Dr. Sara Reaves MD Admit Provider, Other Provider Active Dr. Ochoa Figueroa MD Attending Provider Active Team Status: Active Member Role Status Dates Dr. Marshall Bear MD Primary Care Provider Active Dr. Vin Neff MD Attending Provider Active Dr. Sara Reaves MD Referring Provider Active Team Status: Active Member Role Status Dates Dr. Marshall Bear MD Primary Care Provider Active Dr. Vin Edmond , Emergency Provider Active MARIIA Kimble Attending Provider Active Team Status: Inactive Member Role Status Dates Dr. Marshall Bear MD Primary Care Provider Active Dr. Vin Edmond DO Emergency Provider Active Team Status: Active Member Role Status Dates Dr. Marshall Bear MD Primary Care Provider Active Dr. Tarik Wilkinson MD Attending Provider, Referrin g Provider Active Team Status: Active Member Role Status Dates Dr. Marshall Bear MD Primary Care Provider Active Dr. Jon Cast MD Attending Provider Active Dr. Sara Reaves MD Referring Provider Active Team Status: Inactive Member Role Status Dates Dr. Marshall Bear MD Primary Care Provider Active Dr. Vin Edmond DO Attending Provider, Emergency P pradeep Active Team Status: Inactive Member Role Status Dates Dr. Marshall Bear MD Primary Care Provider Active Dr. Tarik Wilkinson MD Attending Provider Active Team Status: Inactive Member Role Status Dates Dr. Marshall Bear MD Primary Care Provider Active Dr. Tarik Wilkinson MD Attending Provider, Referrin g Provider Active Team Status: Active Member Role Status Dates Dr. Marshall Bear MD Primary Care Provider Active Dr. Prince Baltazar DO Emergency Provider Active Dr. Giuliano Pacheco DO Admit Provider, Other Pro vider Active Dr. Ochoa Figueroa MD Attending Provider, Other Provi wilmar Active Dr. Tarik Wilkinson MD Other Provider Active Team Status: Inactive Member Role Status Dates Dr. Marshall Bear MD Primary Care Provider Active Dr. Prince Baltazar DO Emergency Provider Active Dr. Giuliano Pacheco DO Admit Provider, Other Pro vider Active Dr. Ochoa Figueroa MD Attending Provider Active Dr. Tarik Wilkinson MD Other Provider Active Team Status: Inactive Member Role Status Dates Dr. Marshall Bear MD Primary Care Provider Active Start: January 28, 2025 End: January 28, 2025 Dr. Marshall Bear MD Attending Provider Active Start: January 28, 2025 End: January 28, 2025 Team Status: Active Member Role/Relationship Status Dates Dr. Marshall Bear MD Primary Care Provider Active Team Status: Inactive Member Role/Relationship Status Dates Dr. Marshall Bear MD Primary Care Provider Active Start: January 27, 2025 End: January 27, 2025 Dr. Marshall Bear MD Attending Provider Active Start: January 27, 2025 End: January 27, 2025 Team Status: Inactive Member Role/Relationship Status Dates Dr. Marshall Bear MD Primary Care Provider Active Start: January 28, 2025 End: January 28, 2025 Dr. Marshall Bear MD Attending Provider Active Start: January 28, 2025 End: January 28, 2025 Team Status: Inactive Member Role/Relationship Status Dates Dr. Marshall Bear MD Primary Care Provider Active Start: January 31, 2025 End: January 31, 2025 Dr. Marshall Bear MD Referring Provider Active Start: January 31, 2025 End: January 31, 2025 Dr. Bjorn Bradshaw MD Attending Provider Active Start: January 31, 2025 End: January 31, 2025 Team Status: Inactive Member Role/Relationship Status Dates Dr. Marshall Bear MD Primary Care Provider Active Start: January 31, 2025 End: January 31, 2025 Dr. Jon Cast MD Attending Provider Active S tart: January 31, 2025 End: January 31, 2025 Team Status: Inactive Member Role/Relationship Status Dates Dr. Marshall Bear MD Primary Care Provider Active Start: February 25, 2025 End: February 25, 2025 Dr. Marshall Bear MD Referring Provider Active Start: February 25, 2025 End: February 25, 2025 Rosa Maria Cuevas PA, PA Attending Provider Active Start: February 25, 2025 End: February 25, 2025 Team Status: Inactive Member Role/Relationship Status Dates Dr. Marshall Bear MD Primary Care Provider Active Start: March 05, 2025 End: March 05, 2025 Dr. Bjorn Bradshaw MD Other Provider Active Star t: March 05, 2025 End: March 05, 2025 Dr. Tarik Wilkinson MD Attending Provider Active Start: March 05, 2025 End: March 05, 2025 Dr. Tarik Wilkinson MD Referring Provider Active Start: March 05, 2025 End: March 05, 2025 Team Status: Active Member Role/Relationship Status Dates Dr. Marshall Bear MD Primary Care Provider Active Start: March 05, 2025 Rosa Maria Cuevas PA, PA Attending Provider Active Start: March 05, 2025 TAE Mario Referring Provider Active Start: March 05, 2025 Team Status: Active Member Role/Relationship Status Dates Dr. Marshall Bear MD Primary Care Provider Active Start: March 06, 2025 Dr. Juan Carlos Gagnon MD Attending Provider Active Start: March 06, 2025 Dr. Juan Carlos Gagnon MD Referring Provider Active Start: March 06, 2025 Team Status: Inactive Member Role/Relationship Status Dates Dr. Marshall Bear MD Primary Care Provider Active Start: March 06, 2025 End: March 06, 2025 Dr. Juan Carlos Gagnon MD Attending Provider Active Start: March 06, 2025 End: March 06, 2025 Dr. Juan Carlos Gagnon MD Referring Provider Active Start: March 06, 2025 End: March 06, 2025 Inactive Administered Medications - up to 3 most recent administrations Administered Medications (un recognized section and content) Medication Order MAR Action Action Date Dose Rate Site benzocaine 20% 1 [place] (TOPEX) 1 [place], TOPICAL, DIRECTED, Starting on Mon10/11/23 at 0900, Until Mon10/11/23 at 1259, Dosing as directed for intraprocedural use only - Pharmaceutical Waste: Aerosol -, Intraprocedure Given 10/11/2023 8:30 AM EST 5 Sprays diphenhydrAMINE 12.5-50 mg injection (BENADRYL) 12.5-50 mg, INTRAVENOUS, DIRECTED, Starting on Mon10/11/23 at 0900, Until Mon10/11/23 at 1259, DOSING DIRECTED BY PHYSICIAN FOR PROCEDURAL SEDATION ONLY, Intraprocedure Given 10/11/2023 8:34 AM EST 50 mg fentaNYL 50 mcg/mL 25-100 mcg injection (SUBLIMAZE) 25-100 mcg, INTRAVENOUS, DIRECTED, Starting on Mon10/11/23 at 0900, Until Mon10/11/23 at 1259, DOSING DIRECTED BY PHYSICIAN FOR PROCEDURAL SEDATION ONLY, Intraprocedure Given 10/11/2023 8:31 AM EST 50 mcg lactated ringers iv infusion 30 mL/hr, INTRAVENOUS, CONTINUOUS, Starting on Mon10/11/23 at 0800, Until Mon10/11/23 at 0916, Preprocedure New Bag/Syringe/Amirah le 10/11/2023 8:00 AM EST 30 mL/hr 30 mL/hr Arm, Right midazolam (PF) 1-5 mg injection (VERSED) 1-5 mg, INTRAVENOUS, DIRECTED, Starting on Mon10/11/23 at 0900, Until Mon10/11/23 at 1259, DOSING DIRECTED BY PHYSICIAN FOR PROCEDURAL SEDATION ONLY, Intraprocedure Given 10/11/2023 8:31 AM EST 3 mg FOR RECORDS PERTAINING TO PATIENTS WHO ARE [...] BE BASED ON THE PRIMARY CLINICAL RECORDS. [employer] [facility]. provides no warranty or guarantee of the accuracy or completeness of information in this document.
--- OUTSIDE RECORDS SUMMARY | 2025-03-21 06:14 | XMS RPT_ITS | CCD ---
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 Weston Gutierrez Chi Primary Care Provider Dr. Weston Gutierrez Chi Referring Provider 1([facility])[phone] Roof AUTO RADIATOR SPECIALIST, AUTO RADIATOR SPECIALIST-C Narciso Lovelace Attending Provider 1([facility])[phone] Dr. Marshall Bear Attending Provider 1([facility]) MD Marshall Bear Primary Care Provider Unavail MD Marshall Yañez Referring Provider UnavailDr. Talat Villalta Attending Provider 1([facility]) Dr. Jon Cast Attending Provider 1([facility]) 00 Dr. Talat Lund Referring Provider 1([facility]) Dr. Talat Lund Other Provider 1([facility])-[phone] TAE Colon Attending Provider 1([facility])[phone] TAE Doran Attending Provider Unavailab Dr. Marshall Gallegos Attending Provider [phone] MD Marshall Bear Primary Care Provider Unavail able Dr. Talat Lund Attending Provider 1([facility]) Dr. Talat Lund Referring Provider 1([facility]) Dr. Talat Lund Other Provider 1([facility])-[phone] MD Marshall Bear Referring Provider Unavailabl TAE Minor Attending Provider 1([facility])[phone] TAE Doran Attending Provider Unavailab Dr. Jon Cortés Attending Provider 1([facility])-[phone] Marshall Bear Attending Provider [phone] Unavailable Primary Care Provider UnavailMD Marshall oSliz Primary Care Provider Unavail able MD Chema [...] Jon Cast Attending Provider [phone] TAE Colon Attending Provider [phone] Marshall Bear [...] Attending Unavailable MARSHALL BEAR Primary Care Unavailable JOSE JUAN PENA Attending Unavailable Edilia Hunetr Attending Unavailable JOSE JUAN PENA Referring Unavailable [...] Provider Dr. Kayli Granados Emergency Provider Dr. Sara Reaves Admit Provider Dr. Sara Reaves Attending [...] Other Provider Dr. Tarik Wilkinson Other Provider [phone] Dr. Jaspreet Armstrong Other Provider Unavaila Dr. [...] Chema RUIZ, Dr. Gee Referring Provider 500.2500 ####[facility] [address] [place], [address] Bedside Glucoseon 03-21-2024 FINGERSTICK GLU 114 mg/dL High 74-106 [facility] Comment on above: Result Comment: YASSINE TAVARES OF PATIENT CARE PER NURSING PROTOCOL Performed By: #### L 501.080 ####[facility] [address] [place], [address] CBC-Complete Blood Cnt No Di ffon 03-21-2024 Erythrocyte distribution width (RBC) [Ratio] 13.1 % Normal 11.6-14.6 [facility] Comment on above: Performed By: #### L 100.0500 ####[facility] [address] [place], [address] Hematocrit (Bld) [Volume fraction] 34.9 % Low 40-54 [facility] Comment on above: Performed By: #### L 100.0500 ####[facility] [address] [place], [address] Hemoglobin (Bld) [Mass/Vol] 12.0 g/dL Low 13.0-16.5 [facility] Comment on above: Performed By: #### L 100.0500 ####[facility] [address] [place], [address] MCH (RBC) [Entitic mass] 28.7 pg Normal 27.0-32.0 [facility] Comment on above: Performed By: #### L 100.0500 ####[facility] [address] [place], [address] MCHC (RBC) [Mass/Vol] 34.4 g/dL Normal 32-36 [facility] Comment on above: Performed By: #### L 100.0500 ####[facility] [address] [place], [address] MCV (RBC) [Entitic vol] 83.5 fL Normal 80-94 [facility] Comment on above: Performed By: #### L 100.0500 ####[facility] [address] [place], [address] Platelet mean volume (Bld) [Entitic vol] 8.0 fL Normal 6.2-12.0 [facility] Comment on above: Performed By: #### L 100.0500 ####[facility] [address] [place], [address] Platelets (Bld) [#/Vol] 297 10*3/uL Normal 150-450 [facility] Comment on above: Performed By: #### L 100.0500 ####[facility] [address] [place], [address] RBC (Bld) [#/Vol] 4.18 10*6/uL Low 4.6-6.2 [facility] Comment on above: Performed By: #### L 100.0500 ####[facility] [address] [place], [address] RDW SD 40.0 fl Normal 35.1-43.9 [facility] Comment on above: Performed By: #### L 100.0500 ####[facility] [address] [place], [address] WBC (Bld) [#/Vol] 6.0 10*3/uL Normal 4.4-11.0 [facility] Comment on above: Performed By: #### L 100.0500 ####[facility] [address] [place], [place], [phone] Discharge Instructionon 080 Discharge Instruction Normal [facility] Basic Metabolic Profile (BMP )on 03-20-2024 BUN/CRE 9.8 RATIO Low 10-20 [facility] Comment on above: Performed By: #### L 500.2500 ####[facility] [address] [place], [address] CA,Total 8.9 mg/dL Normal 8.5-10.1 [facility] Comment on above: Performed By: #### L 500.2500 ####[facility] [address] [place], [address] Chloride [Moles/Vol] 94 mmol/L Low 98-107 [facility] Comment on above: Performed By: #### L 500.2500 ####[facility] [address] [place], [address] CO2 [Moles/Vol] 29.0 mmol/L Normal 21.0-32.0 [facility] Comment on above: Performed By: #### L 500.2500 ####[facility] [address] [place], [address] Creatinine [Mass/Vol] 0.92 mg/dL Normal 0.70-1.30 [facility] Comment on above: Result Comment: The validity of the calculated GFR GFRAA in patients over70 years has not been determined. Clinical correlation isessential. Performed By: #### L 500.2500 ####[facility] [address] [place], [address] ECRCL 77.14 ml/min Normal [facility] Comment on above: Performed By: #### L 500.2500 ####[facility] [address] [place], [address] EST GFR - AA 104 mL/min Normal >60 [facility] Comment on above: Result Comment: Afri can Mexican GFR Calc Performed By: #### L 500.2500 ####[facility] [address] [place], [address] GAP 6 Normal 5-15 [facility] Comment on above: Performed By: #### L 500.2500 ####[facility] [address] [place], [address] GFR/1.73 sq M.predicted among non-blacks MDRD (S/P/Bld) [Vol rate/Area] 86 mL/min/{1.73_m2} Normal >60 [facility] Comment on above: Result Comment: Non- GFR Calc Performed By: #### L 500.2500 ####[facility] [address] [place], [address] Glucose [Mass/Vol] 108 mg/dL High 74-106 [facility] Comment on above: Result Comment: Fast ing Glucose result from 100 to 125 mg/dLsuggests IMPAIRED HOMEOSTASIS per A.D.A. criteria. Performed By: #### L 500.2500 ####[facility] [address] [place], [address] Potassium [Moles/Vol] 3.0 mmol/L Low 3.5-5.1 [facility] Comment on above: Performed By: #### L 500.2500 ####[facility] [address] [place], [address] Sodium [Moles/Vol] 129 mmol/L Low 136-145 [facility] Comment on above: Performed By: #### L 500.2500 ####[facility] [address] [place], [address] Urea nitrogen [Mass/Vol] 9 mg/dL Normal 7-18 [facility] Comment on above: Performed By: #### L 500.2500 ####[facility] [address] [place], [address] Bedside Glucoseon 03-20-2024 FINGERSTICK GLU 110 mg/dL High 74-106 [facility] Comment on above: Result Comment: YASSINE GEMENT OF PATIENT CARE PER NURSING PROTOCOL Performed By: #### L 501.080 ####[facility] [address] [place], [address] FINGERSTICK GLU 127 mg/dL High 74-106 [facility] Comment on above: Result Comment: YASSINE GEMENT OF PATIENT CARE PER NURSING PROTOCOL Performed By: #### L 501.080 ####[facility] [address] [place], [address] Phosphoruson 03-20-2024 Phosphate [Mass/Vol] 3.1 mg/dL Normal 2.5-4.9 [facility] Comment on above: Performed By: #### L 501.2300 ####[facility] [address] [place], [address] Basic Metabolic Profile (BMP )on 03-19-2024 BUN/CRE 16.6 RATIO Normal 10-20 [facility] Comment on above: Performed By: #### L 500.2500 ####[facility] [address] [place], [address] CA,Total 8.7 mg/dL Normal 8.5-10.1 [facility] Comment on above: Performed By: #### L 500.2500 ####[facility] [address] [place], [address] Chloride [Moles/Vol] 95 mmol/L Low 98-107 [facility] Comment on above: Performed By: #### L 500.2500 ####[facility] [address] [place], [address] CO2 [Moles/Vol] 28.0 mmol/L Normal 21.0-32.0 [facility] Comment on above: Performed By: #### L 500.2500 ####[facility] [address] [place], [address] Creatinine [Mass/Vol] 0.78 mg/dL Normal 0.70-1.30 [facility] Comment on above: Result Comment: The validity of the calculated GFR GFRAA in patients over70 years has not been determined. Clinical correlation isessential. Performed By: #### L 500.2500 ####[facility] [address] [place], [address] ECRCL 88.72 ml/min Normal [facility] Comment on above: Performed By: #### L 500.2500 ####[facility] [address] [place], [address] EST GFR - AA 126 mL/min Normal >60 [facility] Comment on above: Result Comment: Afri can Mexican GFR Calc Performed By: #### L 500.2500 ####[facility] [address] [place], [address] GAP 6 Normal 5-15 [facility] Comment on above: Performed By: #### L 500.2500 ####[facility] [address] [place], [address] GFR/1.73 sq M.predicted among non-blacks MDRD (S/P/Bld) [Vol rate/Area] 104 mL/min/{1.73_m2} Normal >60 [facility] Comment on above: Result Comment: Non- GFR Calc Performed By: #### L 500.2500 ####[facility] [address] [place], [address] Glucose [Mass/Vol] 116 mg/dL High 74-106 [facility] Comment on above: Result Comment: Fast ing Glucose result from 100 to 125 mg/dLsuggests IMPAIRED HOMEOSTASIS per A.D.A. criteria. Performed By: #### L 500.2500 ####[facility] [address] [place], [address] Potassium [Moles/Vol] 3.3 mmol/L Low 3.5-5.1 [facility] Comment on above: Performed By: #### L 500.2500 ####[facility] [address] [place], [address] Sodium [Moles/Vol] 129 mmol/L Low 136-145 [facility] Comment on above: Performed By: #### L 500.2500 ####[facility] [address] [place], [address] Urea nitrogen [Mass/Vol] 13 mg/dL Normal 7-18 [facility] Comment on above: Performed By: #### L 500.2500 ####[facility] [address] [place], [address] Bedside Glucoseon 03-19-2024 FINGERSTICK GLU 138 mg/dL High 74-106 [facility] Comment on above: Result Comment: YASSINE GEMENT OF PATIENT CARE PER NURSING PROTOCOL Performed By: #### L 501.080 ####[facility] [address] [place], [address] FINGERSTICK GLU 140 mg/dL High 74-106 [facility] Comment on above: Result Comment: YASSINE GEMENT OF PATIENT CARE PER NURSING PROTOCOL Performed By: #### L 501.080 ####[facility] [address] [place], [address] FINGERSTICK GLU 163 mg/dL High 74-106 [facility] Comment on above: Result Comment: YASSINE TAAVRES OF PATIENT CARE PER NURSING PROTOCOL Performed By: #### L 501.080 ####[facility] [address] [place], [address] CBC-Complete Blood Cnt No Di ffon 03-19-2024 Erythrocyte distribution width (RBC) [Ratio] 12.9 % Normal 11.6-14.6 [facility] Comment on above: Performed By: #### L 100.0500 ####[facility] [address] [place], [address] Hematocrit (Bld) [Volume fraction] 31.7 % Low 40-54 [facility] Comment on above: Performed By: #### L 100.0500 ####[facility] [address] [place], [address] Hemoglobin (Bld) [Mass/Vol] 11.1 g/dL Low 13.0-16.5 [facility] Comment on above: Performed By: #### L 100.0500 ####[facility] [address] [place], [address] MCH (RBC) [Entitic mass] 28.8 pg Normal 27.0-32.0 [facility] Comment on above: Performed By: #### L 100.0500 ####[facility] [address] [place], [address] MCHC (RBC) [Mass/Vol] 35.0 g/dL Normal 32-36 [facility] Comment on above: Performed By: #### L 100.0500 ####[facility] [address] [place], [address] MCV (RBC) [Entitic vol] 82.3 fL Normal 80-94 [facility] Comment on above: Performed By: #### L 100.0500 ####[facility] [address] [place], [address] Platelet mean volume (Bld) [Entitic vol] 8.0 fL Normal 6.2-12.0 [facility] Comment on above: Performed By: #### L 100.0500 ####[facility] [address] [place], [address] Platelets (Bld) [#/Vol] 230 10*3/uL Normal 150-450 [facility] Comment on above: Performed By: #### L 100.0500 ####[facility] [address] [place], [address] RBC (Bld) [#/Vol] 3.85 10*6/uL Low 4.6-6.2 [facility] Comment on above: Performed By: #### L 100.0500 ####[facility] [address] [place], [address] RDW SD 39.0 fl Normal 35.1-43.9 [facility] Comment on above: Performed By: #### L 100.0500 ####[facility] [address] [place], [address] WBC (Bld) [#/Vol] 6.1 10*3/uL Normal 4.4-11.0 [facility] Comment on above: Performed By: #### L 100.0500 ####[facility] [address] [place], [address] Consultation - Infectious Dx on 03-19-2024 Consultation - Infectious Dx Normal [facility] Vancomycin, Trough Levelon 0 03-19-2024 VANCO, TROUGH 12.1 ug/mL Normal 5.0-15.0 [facility] Comment on above: Order Comment: Comme nts: Trough to be drawn 30 mins prior to scheduled [id number] Result Comment: VANC OMYCIN STANDARED DRUG THERAPY TROUGH LEVEL: 5.0 - 15.0 mg/LVANCOMYCIN HIGH INTENSITY THERAPY TROUGH LEVEL: 15.0 - 20.0 mg/LHigh Intensity therapy recommended for serious lifethreatening infections include:- Hyhxsbrdxu-Zznlkpjkemwo-Ixmtxbfqa (Ventilator/Healtcare Associated)-SepsisPLEASE CONTACT PHARMACY SERVICES (#1837) FOR INTERPRETATIONOF RESULTS. Performed By: #### L 501.8820 ####[facility] [address] [place], [address] Basic Metabolic Profile (BMP )on 03-18-2024 BUN/CRE 28.9 RATIO High 10-20 [facility] Comment on above: Performed By: #### L 500.2500 ####[facility] [address] [place], [address] CA,Total 8.4 mg/dL Low 8.5-10.1 [facility] Comment on above: Performed By: #### L 500.2500 ####[facility] [address] [place], [address] Chloride [Moles/Vol] 98 mmol/L Normal 98-107 [facility] Comment on above: Performed By: #### L 500.2500 ####[facility] [address] [place], [address] CO2 [Moles/Vol] 23.0 mmol/L Normal 21.0-32.0 [facility] Comment on above: Performed By: #### L 500.2500 ####[facility] [address] [place], [address] Creatinine [Mass/Vol] 0.80 mg/dL Normal 0.70-1.30 [facility] Comment on above: Result Comment: The validity of the calculated GFR GFRAA in patients over70 years has not been determined. Clinical correlation isessential. Performed By: #### L 500.2500 ####[facility] [address] [place], [address] ECRCL 88.72 ml/min Normal [facility] Comment on above: Performed By: #### L 500.2500 ####[facility] [address] [place], [address] EST GFR - AA 124 mL/min Normal >60 [facility] Comment on above: Result Comment: Afri can Mexican GFR Calc Performed By: #### L 500.2500 ####[facility] [address] [place], [address] GAP 9 Normal 5-15 [facility] Comment on above: Performed By: #### L 500.2500 ####[facility] [address] [place], [address] GFR/1.73 sq M.predicted among non-blacks MDRD (S/P/Bld) [Vol rate/Area] 102 mL/min/{1.73_m2} Normal >60 [facility] Comment on above: Result Comment: Non- GFR Calc Performed By: #### L 500.2500 ####[facility] [address] [place], [address] Glucose [Mass/Vol] 110 mg/dL High 74-106 [facility] Comment on above: Result Comment: Fast ing Glucose result from 100 to 125 mg/dLsuggests IMPAIRED HOMEOSTASIS per A.D.A. criteria. Performed By: #### L 500.2500 ####[facility] [address] [place], [address] Potassium [Moles/Vol] 3.0 mmol/L Low 3.5-5.1 [facility] Comment on above: Performed By: #### L 500.2500 ####[facility] [address] [place], [address] Sodium [Moles/Vol] 130 mmol/L Low 136-145 [facility] Comment on above: Performed By: #### L 500.2500 ####[facility] [address] [place], [address] Urea nitrogen [Mass/Vol] 23 mg/dL High 7-18 [facility] Comment on above: Performed By: #### L 500.2500 ####[facility] [address] [place], [address] Bedside Glucoseon 03-18-2024 FINGERSTICK GLU 119 mg/dL High 74-106 [facility] Comment on above: Result Comment: YASSINE GEMENT OF PATIENT CARE PER NURSING PROTOCOL Performed By: #### L 501.080 ####[facility] [address] [facility] [address] FINGERSTICK GLU 112 mg/dL High -106 [facility] Comment on above: Result Comment: YASSINE GEMENT OF PATIENT CARE PER NURSING PROTOCOL Performed By: #### L 501.080 ####[facility] [address] [facility] [address] FINGERSTICK GLU 132 mg/dL High [facility]106 [facility] Comment on above: Result Comment: YASSINE GEMENT OF PATIENT CARE PER NURSING PROTOCOL Performed By: #### L 501.080 ####[facility] [address] [facility] [address] Brain W/WO Contraston 2023 Brain W/WO Contrast Normal [facility] MR/CON.PCM.NEon 03-18-2024 MR/CON.PCM.NE Normal [facility] Magnesiumon 03-18-2024 Magnesium [Mass/Vol] 1.9 mg/dL Normal 1.6-2.6 [facility] Comment on above: Performed By: #### L 501.5200 ####[facility] [address] [facility] [address] Spine Lumbar W/WO Contraston 03-18-2024 Spine Lumbar W/WO Contrast Normal [facility] Bedside Glucoseon 03-17-2024 FINGERSTICK GLU 125 mg/dL High 74-106 [facility] Comment on above: Result Comment: YASSINE GEMENT OF PATIENT CARE PER NURSING PROTOCOL Performed By: #### L 501.080 ####[facility] [address] [place], [address] FINGERSTICK GLU 120 mg/dL High 74-106 [facility] Comment on above: Result Comment: YASSINE GEMENT OF PATIENT CARE PER NURSING PROTOCOL Performed By: #### L 501.080 ####[facility] [address] [place], [address] FINGERSTICK GLU 133 mg/dL High 74-106 [facility] Comment on above: Result Comment: YASSINE GEMENT OF PATIENT CARE PER NURSING PROTOCOL Performed By: #### L 501.080 ####[facility] [address] [place], [address] CBC W/Diff, Automatedon 08 PLT EST ADEQUATE Normal ADEQ [facility] Comment on above: Performed By: #### L 100.0100, L500.4050 ####[facility] [address] [place], [address] COVID 19 AG RAPID (RN FRANK T)on 03-17-2024 SARS-CoV-2 (COVID-19) RNA CHARLES+probe Ql (Unsp spec) Normal [facility] Comment on above: Performed By: #### M 100.505 ####[facility] [address] [place], [address] Comprehensive Metabolic Prof ilon 03-17-2024 Albumin [Mass/Vol] 3.4 g/dL Normal 3.2-5.0 [facility] Comment on above: Order Comment: REDRA W. PREVIOUS SPECIMEN REJECTED DUE TOQNS. 03/17/24 0658 Ham Reaves. Result Comment: SST FOUND. Performed By: #### L 500.4050 ####[facility] [address] [place], [address] Albumin/Globulin [Mass ratio] 1.1 {ratio} Normal 0.9-2.4 [facility] Comment on above: Order Comment: REDRA W. PREVIOUS SPECIMEN REJECTED DUE TOQNS. 03/17/24657 Ham Reaves. Performed By: #### L 500.4050 ####[facility] [address] [place], [address] ALK P 73 U/L Normal 45-117 [facility] Comment on above: Order Comment: REDRA W. PREVIOUS SPECIMEN REJECTED DUE TOQNS. 03/17/2458 Ham Reaves. Result Comment: SST FOUND. Performed By: #### L 500.4050 ####[facility] [address] [place], [address] ALT [Catalytic activity/Vol] 21 U/L Normal 16-61 [facility] Comment on above: Order Comment: REDRA W. PREVIOUS SPECIMEN REJECTED DUE TOQNS. 03/17/2458 Ham Reaves. Result Comment: SST FOUND. Performed By: #### L 500.4050 ####[facility] [address] [place], [address] AST [Catalytic activity/Vol] 26 U/L Normal 15-37 [facility] Comment on above: Order Comment: REDRA W. PREVIOUS SPECIMEN REJECTED DUE TOQNS. 03/17/24657 Ham Reaves. Result Comment: Slig ht Hemolysis, Result may be falsely increased. Performed By: #### L 500.4050 ####[facility] [address] [place], [address] Bilirubin [Mass/Vol] 1.30 mg/dL High 0.20-1.00 [facility] Comment on above: Order Comment: REDRA W. PREVIOUS SPECIMEN REJECTED DUE TOQNS. 03/17/2458 Ham Reaves. Result Comment: For patients on eltrombopag therapy, use of Dimension Ruso TBIL is not recommended. Performed By: #### L 500.4050 ####[facility] [address] [place], [address] BUN/CRE 22.7 RATIO High 10-20 [facility] Comment on above: Order Comment: REDRA W. PREVIOUS SPECIMEN REJECTED DUE TOQNS. 03/17/2458 Ham Reaves. Result Comment: SST FOUND. Performed By: #### L 500.4050 ####[facility] [address] [place], [id number] CA,Total 8.3 mg/dL Low 8.5-10.1 [facility] Comment on above: Order Comment: REDRA W. PREVIOUS SPECIMEN REJECTED DUE TOQNS. 03/17/2458 Ham Reaves. Result Comment: SST FOUND. Performed By: #### L 500.4050 ####[facility] [address] [place], [address] Chloride [Moles/Vol] 100 mmol/L Normal 98-107 [facility] Comment on above: Order Comment: REDRA W. PREVIOUS SPECIMEN REJECTED DUE TOQNS. 03/17/2458 Ham Reaves. Result Comment: SST FOUND. Performed By: #### L 500.4050 ####[facility] [address] [place], [address] CO2 [Moles/Vol] 22.0 mmol/L Normal 21.0-32.0 [facility] Comment on above: Order Comment: REDRA W. PREVIOUS SPECIMEN REJECTED DUE TOQNS. 03/17/2458 Ham Reaves. Result Comment: SST FOUND. Performed By: #### L 500.4050 ####[facility] [address] [place], [address] Creatinine [Mass/Vol] 1.10 mg/dL Normal 0.70-1.30 [facility] Comment on above: Order Comment: REDRA W. PREVIOUS SPECIMEN REJECTED DUE TOQNS. 03/17/24657 Ham Reaves. Result Comment: The validity of the calculated GFR GFRAA in patients over70 years has not been determined. Clinical correlation isessential. Performed By: #### L 500.4050 ####[facility] [address] [place], [address] ECRCL 64.52 ml/min Normal [facility] Comment on above: Order Comment: REDRA W. PREVIOUS SPECIMEN REJECTED DUE TOQNS. 03/17/2458 Ham Reaves. Performed By: #### L 500.4050 ####[facility] [address] [place], [address] EST GFR - AA 85 mL/min Normal >60 [facility] Comment on above: Order Comment: REDRA W. PREVIOUS SPECIMEN REJECTED DUE TOQNS. 03/17/2458 Ham Reaves. Result Comment: Afri can Mexican GFR Calc Performed By: #### L 500.4050 ####[facility] [address] [place], [address] GAP 10 Normal 5-15 [facility] Comment on above: Order Comment: REDRA W. PREVIOUS SPECIMEN REJECTED DUE TOQNS. 03/17/2458 Ham Reaves. Result Comment: SST FOUND. Performed By: #### L 500.4050 ####[facility] [address] [place], [address] GFR/1.73 sq M.predicted among non-blacks MDRD (S/P/Bld) [Vol rate/Area] 70 mL/min/{1.73_m2} Normal >60 [facility] Comment on above: Order Comment: REDRA W. PREVIOUS SPECIMEN REJECTED DUE TOQNS. 03/17/2458 Ham Reaves. Result Comment: Non- GFR Calc Performed By: #### L 500.4050 ####[facility] [address] [place], [address] Globulin (S) [Mass/Vol] 3.0 g/dL Normal 2.2-4.2 [facility] Comment on above: Order Comment: REDRA W. PREVIOUS SPECIMEN REJECTED DUE TOQNS. 03/17/2458 Ham Reaves. Performed By: #### L 500.4050 ####[facility] [address] [place], [address] Glucose [Mass/Vol] 112 mg/dL High 74-106 [facility] Comment on above: Order Comment: REDRA W. PREVIOUS SPECIMEN REJECTED DUE TOQNS. 03/17/2458 Ham Reaves. Result Comment: Fast ing Glucose result from 100 to 125 mg/dLsuggests IMPAIRED HOMEOSTASIS per A.D.A. criteria. Performed By: #### L 500.4050 ####[facility] [address] [place], [address] Potassium [Moles/Vol] 4.1 mmol/L Normal 3.5-5.1 [facility] Comment on above: Order Comment: REDRA W. PREVIOUS SPECIMEN REJECTED DUE TOQNS. 03/17/2458 Ham Reaves. Result Comment: Slig ht Hemolysis, Result may be falsely increased. Performed By: #### L 500.4050 ####[facility] [address] [place], [address] Sodium [Moles/Vol] 132 mmol/L Low 136-145 [facility] Comment on above: Order Comment: REDRA W. PREVIOUS SPECIMEN REJECTED DUE TOQNS. 03/17/2458 Ham Reaves. Result Comment: SST FOUND. Performed By: #### L 500.4050 ####[facility] [address] [place], [address] T PROT 6.4 g/dL Normal 6.4-8.2 [facility] Comment on above: Order Comment: REDRA W. PREVIOUS SPECIMEN REJECTED DUE TOQNS. 03/17/2458 Ham Reaves. Result Comment: SST FOUND. Performed By: #### L 500.4050 ####[facility] [address] [place], [address] Urea nitrogen [Mass/Vol] 25 mg/dL High 7-18 [facility] Comment on above: Order Comment: REDRA W. PREVIOUS SPECIMEN REJECTED DUE TOQNS. 03/17/2458 Ham Reaves. Result Comment: SST FOUND. Performed By: #### L 500.4050 ####[facility] [address] [place], [address] ALB Normal 3.2-5.0 [facility] Comment on above: Result Comment: This specimen has been REJECTED due to Laboratory criteria:Quanity Not Sufficient.PHLEBOTOMISTS has been notified of need of recollection.03/17/24656 Ham L White Performed By: #### L 100.0100, L500.4050 ####[facility] [address] [place], [address] ALK P Normal 45-117 [facility] Comment on above: Result Comment: This specimen has been REJECTED due to Laboratory criteria:Quanity Not Sufficient.PHLEBOTOMISTS has been notified of need of recollection.03/17/24656 Ham L White Performed By: #### L 100.0100, L500.4050 ####[facility] [address] [place], [address] ALT Normal 16-61 [facility] Comment on above: Result Comment: This specimen has been REJECTED due to Laboratory criteria:Quanity Not Sufficient.PHLEBOTOMISTS has been notified of need of recollection.03/17/24656 Ham L White Performed By: #### L 100.0100, L500.4050 ####[facility] [address] [place], [address] AST Normal 15-37 [facility] Comment on above: Result Comment: This specimen has been REJECTED due to Laboratory criteria:Quanity Not Sufficient.PHLEBOTOMISTS has been notified of need of recollection.03/17/24656 Ham L White Performed By: #### L 100.0100, L500.4050 ####[facility] [address] [place], [address] BUN Normal 7-18 [facility] Comment on above: Result Comment: This specimen has been REJECTED due to Laboratory criteria:Quanity Not Sufficient.PHLEBOTOMISTS has been notified of need of recollection.03/17/24656 Ham L White Performed By: #### L 100.0100, L500.4050 ####[facility] [address] [place], [address] BUN/CRE Normal 10-20 [facility] Comment on above: Result Comment: This specimen has been REJECTED due to Laboratory criteria:Quanity Not Sufficient.PHLEBOTOMISTS has been notified of need of recollection.03/17/24656 Ham Guzman White Performed By: #### L 100.0100, L500.4050 ####[facility] [address] [place], [address] CA,Total Normal 8.5-10.1 [facility] Comment on above: Result Comment: This specimen has been REJECTED due to Laboratory criteria:Quanity Not Sufficient.PHLEBOTOMISTS has been notified of need of recollection.03/17/24656 Ham Guzman White Performed By: #### L 100.0100, L500.4050 ####[facility] [address] [place], [address] CL Normal 98-107 [facility] Comment on above: Result Comment: This specimen has been REJECTED due to Laboratory criteria:Quanity Not Sufficient.PHLEBOTOMISTS has been notified of need of recollection.03/17/24656 Ham Guzman White Performed By: #### L 100.0100, L500.4050 ####[facility] [address] [place], [address] CO2 Normal 21.0-32.0 [facility] Comment on above: Result Comment: This specimen has been REJECTED due to Laboratory criteria:Quanity Not Sufficient.PHLEBOTOMISTS has been notified of need of recollection.03/17/24656 Ham Guzman White Performed By: #### L 100.0100, L500.4050 ####[facility] [address] [place], [address] CREAT,SERUM Normal 0.70-1.30 [facility] Comment on above: Result Comment: This specimen has been REJECTED due to Laboratory criteria:Quanity Not Sufficient.PHLEBOTOMISTS has been notified of need of recollection.03/17/24656 Ham L White Performed By: #### L 100.0100, L500.4050 ####[facility] [address] [place], [address] EST GFR Normal >60 [facility] Comment on above: Result Comment: This specimen has been REJECTED due to Laboratory criteria:Quanity Not Sufficient.PHLEBOTOMISTS has been notified of need of recollection.03/17/24656 Ham L White Performed By: #### L 100.0100, L500.4050 ####[facility] [address] [place], [address] EST GFR - AA Normal >60 [facility] Comment on above: Result Comment: This specimen has been REJECTED due to Laboratory criteria:Quanity Not Sufficient.PHLEBOTOMISTS has been notified of need of recollection.03/17/24656 Ham L White Performed By: #### L 100.0100, L500.4050 ####[facility] [address] [place], [address] GAP Normal 5-15 [facility] Comment on above: Result Comment: This specimen has been REJECTED due to Laboratory criteria:Quanity Not Sufficient.PHLEBOTOMISTS has been notified of need of recollection.03/17/24656 Ham L White Performed By: #### L 100.0100, L500.4050 ####[facility] [address] [place], [address] GLU Normal 74-106 [facility] Comment on above: Result Comment: This specimen has been REJECTED due to Laboratory criteria:Quanity Not Sufficient.PHLEBOTOMISTS has been notified of need of recollection.03/17/24656 Ham L White Performed By: #### L 100.0100, L500.4050 ####[facility] [address] [place], [address] Potassium Normal 3.5-5.1 [facility] Comment on above: Result Comment: This specimen has been REJECTED due to Laboratory criteria:Quanity Not Sufficient.PHLEBOTOMISTS has been notified of need of recollection.03/17/24656 Ham Guzman White Performed By: #### L 100.0100, L500.4050 ####[facility] [address] [place], [address] T BILI Normal 0.20-1.00 [facility] Comment on above: Result Comment: This specimen has been REJECTED due to Laboratory criteria:Quanity Not Sufficient.PHLEBOTOMISTS has been notified of need of recollection.03/17/24656 Ham Guzman White Performed By: #### L 100.0100, L500.4050 ####[facility] [address] [place], [address] T PROT Normal 6.4-8.2 [facility] Comment on above: Result Comment: This specimen has been REJECTED due to Laboratory criteria:Quanity Not Sufficient.PHLEBOTOMISTS has been notified of need of recollection.03/17/24656 Ham Guzman White Performed By: #### L 100.0100, L500.4050 ####[facility] [address] [place], [address] Comprehensive Metabolic Profil Normal 136-145 [facility] Comment on above: Result Comment: This specimen has been REJECTED due to Laboratory criteria:Quanity Not Sufficient.PHLEBOTOMISTS has been notified of need of recollection.03/17/24656 Ham Guzman White Performed By: #### L 100.0100, L500.4050 ####[facility] [address] [place], [address] H AND P Exam - Hospitaliston 03-17-2024 H&P Exam - Hospitalist Normal [facility] Urine Drug Screen (VISTA)on 03-17-2024 AMPHETAMINES Negative Normal <1000 ng/mL [facility] Comment on above: Performed By: #### M 200.1000, L503.5510, L100.0100, L500.2500, L501.9100, L501.9520, L503.6005, L505.5000, L509.7000 ####[facility] [address] [place], [place], [phone] BARBITIURATES Negative Normal < 200 ng/mL [facility] Comment on above: Performed By: #### M 200.1000, L503.5510, L100.0100, L500.2500, L501.9100, L501.9520, L503.6005, L505.5000, L509.7000 ####[facility] [address] [place], [address] BENZODIAZIPINE Negative Normal < 200 ng/mL [facility] Comment on above: Performed By: #### M 200.1000, L503.5510, L100.0100, L500.2500, L501.9100, L501.9520, L503.6005, L505.5000, L509.7000 ####[facility] [address] [place], [address] COCAINE Negative Normal < 300 ng/mL [facility] Comment on above: Performed By: #### M 200.1000, L503.5510, L100.0100, L500.2500, L501.9100, L501.9520, L503.6005, L505.5000, L509.7000 ####[facility] [address] [place], [phone] ECSTACY Negative Normal < 500 ng/mL [facility] Comment on above: Performed By: #### M 200.1000, L503.5510, L100.0100, L500.2500, L501.9100, L501.9520, L503.6005, L505.5000, L509.7000 ####[facility] [address] [place], [place], [phone] METHADONE Negative Normal < 300 ng/mL [facility] Comment on above: Performed By: #### M 200.1000, L503.5510, L100.0100, L500.2500, L501.9100, L501.9520, L503.6005, L505.5000, L509.7000 ####[facility] [address] [place], [address] OPIATES Negative Normal < 300 ng/mL [facility] Comment on above: Performed By: #### M 200.1000, L503.5510, L100.0100, L500.2500, L501.9100, L501.9520, L503.6005, L505.5000, L509.7000 ####[facility] [address] [place], [address] PCP Negative Normal < 25 ng/mL [facility] Comment on above: Performed By: #### M 200.1000, L503.5510, L100.0100, L500.2500, L501.9100, L501.9520, L503.6005, L505.5000, L509.7000 ####[facility] [address] [place], [address] THC Positive Abnormal < 50 ng/mL [facility] Comment on above: Performed By: #### M 200.1000, L503.5510, L100.0100, L500.2500, L501.9100, L501.9520, L503.6005, L505.5000, L509.7000 ####[facility] [address] [place], [address] VISTA UDS PH 7 Normal [facility] Comment on above: Performed By: #### M 200.1000, L503.5510, L100.0100, L500.2500, L501.9100, L501.9520, L503.6005, L505.5000, L509.7000 ####[facility] [address] [place], [address] Alcohol, Blood (Medical)-Ser umon 03-16-2024 SERUM ETOH < 3.0 Normal [facility] Comment on above: Result Comment: The serum:whole blood ethanol ratio is approximately 1.14and varies slightly with hematocrit.Medical Alcohol reference interval and critical value innon-tolerant individuals; 50 - 100 Impairment 100 Intoxication 100 - 250 Severe Poisoning 250 - 400 Deep/possible fatal coma Performed By: #### M 200.1000, L503.5510, L100.0100, L500.2500, L501.9100, L501.9520, L503.6005, L505.5000, L509.7000 ####[facility] [address] [place], [address] Ammoniaon 03-16-2024 Ammonia (P) [Moles/Vol] 21.0 umol/L Normal 11-32 [facility] Comment on above: Performed By: #### M 200.1000, L503.5510, L100.0100, L500.2500, L501.9100, L501.9520, L503.6005, L505.5000, L509.7000 ####[facility] [address] [place], [address] Basic Metabolic Profile (BMP )on 03-16-2024 BUN/CRE 22.8 RATIO High 10-20 [facility] Comment on above: Performed By: #### M 200.1000, L503.5510, L100.0100, L500.2500, L501.9100, L501.9520, L503.6005, L505.5000, L509.7000 ####[facility] [address] [place], [address] CA,Total 9.8 mg/dL Normal 8.5-10.1 [facility] Comment on above: Performed By: #### M 200.1000, L503.5510, L100.0100, L500.2500, L501.9100, L501.9520, L503.6005, L505.5000, L509.7000 ####[facility] [address] [place], [address] Chloride [Moles/Vol] 96 mmol/L Low 98-107 [facility] Comment on above: Performed By: #### M 200.1000, L503.5510, L100.0100, L500.2500, L501.9100, L501.9520, L503.6005, L505.5000, L509.7000 ####[facility] [address] [place], [address] CO2 [Moles/Vol] 26.0 mmol/L Normal 21.0-32.0 [facility] Comment on above: Performed By: #### M 200.1000, L503.5510, L100.0100, L500.2500, L501.9100, L501.9520, L503.6005, L505.5000, L509.7000 ####[facility] [address] [place], [address] Creatinine [Mass/Vol] 1.27 mg/dL Normal 0.70-1.30 [facility] Comment on above: Result Comment: The validity of the calculated GFR GFRAA in patients over70 years has not been determined. Clinical correlation isessential. Performed By: #### M 200.1000, L503.5510, L100.0100, L500.2500, L501.9100, L501.9520, L503.6005, L505.5000, L509.7000 ####[facility] [address] [place], [address] EST GFR - AA 72 mL/min Normal >60 [facility] Comment on above: Result Comment: Afri can Mexican GFR Calc Performed By: #### M 200.1000, L503.5510, L100.0100, L500.2500, L501.9100, L501.9520, L503.6005, L505.5000, L509.7000 ####[facility] [address] [place], [address] GAP 8 Normal 5-15 [facility] Comment on above: Performed By: #### M 200.1000, L503.5510, L100.0100, L500.2500, L501.9100, L501.9520, L503.6005, L505.5000, L509.7000 ####[facility] [address] [place], [address] GFR/1.73 sq M.predicted among non-blacks MDRD (S/P/Bld) [Vol rate/Area] 59 mL/min/{1.73_m2} Low >60 [facility] Comment on above: Result Comment: Non- GFR Calc Performed By: #### M 200.1000, L503.5510, L100.0100, L500.2500, L501.9100, L501.9520, L503.6005, L505.5000, L509.7000 ####[facility] [address] [place], [address] Glucose [Mass/Vol] 115 mg/dL High 74-106 [facility] Comment on above: Result Comment: Fast ing Glucose result from 100 to 125 mg/dLsuggests IMPAIRED HOMEOSTASIS per A.D.A. criteria. Performed By: #### M 200.1000, L503.5510, L100.0100, L500.2500, L501.9100, L501.9520, L503.6005, L505.5000, L509.7000 ####[facility] [address] [place], [address] Potassium [Moles/Vol] 4.3 mmol/L Normal 3.5-5.1 [facility] Comment on above: Performed By: #### M 200.1000, L503.5510, L100.0100, L500.2500, L501.9100, L501.9520, L503.6005, L505.5000, L509.7000 ####[facility] [address] [place], [address] Sodium [Moles/Vol] 130 mmol/L Low 136-145 [facility] Comment on above: Performed By: #### M 200.1000, L503.5510, L100.0100, L500.2500, L501.9100, L501.9520, L503.6005, L505.5000, L509.7000 ####[facility] [address] [place], [address] Urea nitrogen [Mass/Vol] 29 mg/dL High 7-18 [facility] Comment on above: Performed By: #### M 200.1000, L503.5510, L100.0100, L500.2500, L501.9100, L501.9520, L503.6005, L505.5000, L509.7000 ####[facility] [address] [place], [address] Brain/Head without Contrasto n 03-16-2024 Brain/Head without Contrast Normal [facility] CBC W/Diff, Automatedon Absolute Lymph 0.83 X10 3/uL Normal 0.83-4.51 [facility] Comment on above: Performed By: #### M 200.1000, L503.5510, L100.0100, L500.2500, L501.9100, L501.9520, L503.6005, L505.5000, L509.7000 ####[facility] [address] [place], [address] Absolute Neut 5.4 X10 3/uL Normal 2.0-7.7 [facility] Comment on above: Performed By: #### M 200.1000, L503.5510, L100.0100, L500.2500, L501.9100, L501.9520, L503.6005, L505.5000, L509.7000 ####[facility] [address] [place], [address] Basophils/100 WBC (Bld) 0.4 % Normal 0-1 [facility] Comment on above: Performed By: #### M 200.1000, L503.5510, L100.0100, L500.2500, L501.9100, L501.9520, L503.6005, L505.5000, L509.7000 ####[facility] [address] [place], [address] Eosinophils/100 WBC (Bld) 0.6 % Normal 0-5 [facility] Comment on above: Performed By: #### M 200.1000, L503.5510, L100.0100, L500.2500, L501.9100, L501.9520, L503.6005, L505.5000, L509.7000 ####[facility] [address] [place], [address] Erythrocyte distribution width (RBC) [Ratio] 13.6 % Normal 11.6-14.6 [facility] Comment on above: Performed By: #### M 200.1000, L503.5510, L100.0100, L500.2500, L501.9100, L501.9520, L503.6005, L505.5000, L509.7000 ####[facility] [address] [place], [address] Hematocrit (Bld) [Volume fraction] 34.5 % Low 40-54 [facility] Comment on above: Performed By: #### M 200.1000, L503.5510, L100.0100, L500.2500, L501.9100, L501.9520, L503.6005, L505.5000, L509.7000 ####[facility] [address] [place], [address] Hemoglobin (Bld) [Mass/Vol] 11.4 g/dL Low 13.0-16.5 [facility] Comment on above: Performed By: #### M 200.1000, L503.5510, L100.0100, L500.2500, L501.9100, L501.9520, L503.6005, L505.5000, L509.7000 ####[facility] [address] [place], [address] IG% 0.300 Normal 0.0-0.9 [facility] Comment on above: Result Comment: IG% - Immature Granulocytes (promyelocytes, myelocytes andmetamyelocytes) > 1% indicates that a LEFT SHIFT is Present. Performed By: #### M 200.1000, L503.5510, L100.0100, L500.2500, L501.9100, L501.9520, L503.6005, L505.5000, L509.7000 ####[facility] [address] [place], [address] Lymphocytes/100 WBC (Bld) 11.9 % Low 19-41 [facility] Comment on above: Performed By: #### M 200.1000, L503.5510, L100.0100, L500.2500, L501.9100, L501.9520, L503.6005, L505.5000, L509.7000 ####[facility] [address] [place], [address] MCH (RBC) [Entitic mass] 28.4 pg Normal 27.0-32.0 [facility] Comment on above: Performed By: #### M 200.1000, L503.5510, L100.0100, L500.2500, L501.9100, L501.9520, L503.6005, L505.5000, L509.7000 ####[facility] [address] [place], [address] MCHC (RBC) [Mass/Vol] 33.0 g/dL Normal 32-36 [facility] Comment on above: Performed By: #### M 200.1000, L503.5510, L100.0100, L500.2500, L501.9100, L501.9520, L503.6005, L505.5000, L509.7000 ####[facility] [address] [place], [address] MCV (RBC) [Entitic vol] 85.8 fL Normal 80-94 [facility] Comment on above: Performed By: #### M 200.1000, L503.5510, L100.0100, L500.2500, L501.9100, L501.9520, L503.6005, L505.5000, L509.7000 ####[facility] [address] [place], [address] Monocytes/100 WBC (Bld) 9.2 % Normal 0-10 [facility] Comment on above: Performed By: #### M 200.1000, L503.5510, L100.0100, L500.2500, L501.9100, L501.9520, L503.6005, L505.5000, L509.7000 ####[facility] [address] [place], [address] Neutrophils/100 WBC (Bld) 77.6 % High 47-70 [facility] Comment on above: Performed By: #### M 200.1000, L503.5510, L100.0100, L500.2500, L501.9100, L501.9520, L503.6005, L505.5000, L509.7000 ####[facility] [address] [place], [address] Nucleated RBC (Bld) [#/Vol] 0 10*3/uL Normal 0-5 [facility] Comment on above: Performed By: #### M 200.1000, L503.5510, L100.0100, L500.2500, L501.9100, L501.9520, L503.6005, L505.5000, L509.7000 ####[facility] [address] [place], [address] Platelet mean volume (Bld) [Entitic vol] 8.8 fL Normal 6.2-12.0 [facility] Comment on above: Performed By: #### M 200.1000, L503.5510, L100.0100, L500.2500, L501.9100, L501.9520, L503.6005, L505.5000, L509.7000 ####[facility] [address] [place], [address] Platelets (Bld) [#/Vol] 299 10*3/uL Normal 150-450 [facility] Comment on above: Performed By: #### M 200.1000, L503.5510, L100.0100, L500.2500, L501.9100, L501.9520, L503.6005, L505.5000, L509.7000 ####[facility] [address] [place], [address] RBC (Bld) [#/Vol] 4.02 10*6/uL Low 4.6-6.2 [facility] Comment on above: Performed By: #### M 200.1000, L503.5510, L100.0100, L500.2500, L501.9100, L501.9520, L503.6005, L505.5000, L509.7000 ####[facility] [address] [place], [address] RDW SD 43.0 fl Normal 35.1-43.9 [facility] Comment on above: Performed By: #### M 200.1000, L503.5510, L100.0100, L500.2500, L501.9100, L501.9520, L503.6005, L505.5000, L509.7000 ####[facility] [address] [place], [place], [address] WBC (Bld) [#/Vol] 7.0 10*3/uL Normal 4.4-11.0 [facility] Comment on above: Performed By: #### M 200.1000, L503.5510, L100.0100, L500.2500, L501.9100, L501.9520, L503.6005, L505.5000, L509.7000 ####[facility] [address] [place], [place], [id number] Chest 1 View (Portable)on Chest 1 View (Portable) Normal [facility] Emergency Department Summary on 03-16-2024 Emergency Department Summary Normal [facility] Lactic Acidon 03-16-2024 Lactate [Moles/Vol] 1.3 mmol/L Normal 0.4-1.9 [facility] Comment on above: Order Comment: Y Performed By: #### M 200.1000, L503.5510, L100.0100, L500.2500, L501.9100, L501.9520, L503.6005, L505.5000, L509.7000 ####[facility] [address] [place], [address] Procalcitoninon 03-16-2024 Procalcitonin 0.08 ng/mL Normal 0.00-0.09 [facility] Comment on above: Result Comment: A pr [...] L100.0100, L500.2500, L501.9100, L501.9520, L503.6005, L505.5000, L509.7000 ####[facility] [address] [place], [address] Spine Lumbar without Contras ton 03-16-2024 Spine Lumbar without Contrast Normal [facility] Thyroid Stim Hormone (TSH)on 03-16-2024 TSH 1.53 uIU/mL Normal 0.358-3.74 [facility] Comment on above: Performed By: #### M 200.1000, L503.5510, L100.0100, L500.2500, L501.9100, L501.9520, L503.6005, L505.5000, L509.7000 ####[facility] [address] [place], [address] Urinalysis, Completeon 03-16 BACTERIA 0 SEEN Normal None Seen [facility] Comment on above: Order Comment: ZAHIDA CTOR TO SPECIFY Performed By: #### L 400.0001 ####[facility] [address] [place], [address] EPI,SQUAMOUS 0 SEEN Normal 0-5 [facility] Comment on above: Order Comment: ZAHIDA CTOR TO SPECIFY Performed By: #### L 400.0001 ####[facility] [address] [place], [address] Mucus Ql (Urine sed) 0 SEEN Normal [facility] [place] Comment on above: Order Comment: ZAHIDA CTOR TO SPECIFY Performed By: #### L 400.0001 ####[facility] [address] [place], [address] RBC 0 SEEN Normal 0-5 [facility] Comment on above: Order Comment: ZAHIDA CTOR TO SPECIFY Performed By: #### L 400.0001 ####[facility] [id number] [place], [address] WBC 0 SEEN Normal 0-5 [facility] Comment on above: Order Comment: COLLE CTOR TO SPECIFY Performed By: #### L 400.0001 ####[facility] [id number] [place], [address] Venous Blood Gason 4 Blood Gas Type NORMA Normal [facility] Comment on above: Performed By: #### L 9000.0810 ####[facility] [id number] [place], [address] CO2 [Moles/Vol] 25 mmol/L Normal 23-33 [facility] Comment on above: Performed By: #### L 9000.0810 ####[facility] [address] [place], [address] HCO3 (Bld) [Moles/Vol] 24 mmol/L Normal 22-26 [facility] Comment on above: Performed By: #### L [id number] ####[facility] [address] [place], [address] O2 Delivery Dev Room Air Normal [facility] Comment on above: Performed By: #### L 9000.0810 ####[facility] [id number] [place], [address] SITE Not entered [facility] Comment on above: Performed By: #### L [id number] ####[facility] [id number] [place], [address] VBG BE 1 mmol/L Normal -1.0-3.5 [facility] Comment on above: Performed By: #### L [id number] ####[facility] [address] [place], [address] VBG pCO2 33.7 mmHg Low 41-51 [facility] Comment on above: Performed By: #### L [id number] ####[facility] [id number] [place], [place], [address] VBG pH 7.47 High 7.32-7.42 [facility] Comment on above: Performed By: #### L [id number] ####[facility] [address] [place], [place], [id number] VBG PO2 42 mmHg High 25-40 [facility] Comment on above: Performed By: #### L [id number] ####[facility] [address] [place], [place], [id number] VBG SO2 81 High 50-70 [facility] Comment on above: Performed By: #### L [id number] ####[facility] [address] [place], [place], [id number] Thin prep Papanicolaou smear with manual screeningOrdered By: Ochoa Figueroa on 12-12-2023 Thin prep Papanicolaou smear with manual screening 101 mg/dL 74-106 [facility] Basophil percentageOrdered B y: Giuliano Pacheco on 12-10-2023 Basophil percentage 10.5 g/dL 13.0-16.5 [facility] Basophil percentage 129 mg/dL 74-106 [facility] Basophil percentage 138 mmol/L 136-145 [facility] Basophil percentage 3.7 mmol/L 3.5-5.1 [facility] Basophil percentage 105 mmol/L 98-107 [facility] Basophils (Bld) [#/Vol] 5.7 10*3/uL 4.4-11.0 [facility] Determination of erythrocyte mean corpuscular volume (MCV)Ordered By: Giuliano Pacheco on 12-10-2023 MCV (RBC) [Entitic vol] 89.5 fL 80-94 [facility] Erythrocyte distribution wid th ratioOrdered By: Giuliano Pacheco on 12-10-2023 Erythrocyte distribution width (RBC) [Ratio] 13.4 % 11.6-14.6 [facility] Erythrocyte distribution wid th standard deviationOrdered By: Giuliano Pacheco on 12-10-2023 Erythrocyte distribution width (RBC) [Entitic vol] 44.5 fL 35.1-43.9 [facility] Hematocrit Auto (Bld) [Volum e fraction]Ordered By: Giuliano Pacheco on 12-10-2023 Hematocrit (Bld) [Volume fraction] 32.5 % 40-54 [facility] No Panel InformationOrdered By: Giuliano Pacheco on 12-10-2023 28.9 pg 27.0-32.0 [facility] 32.3 g/dL 32-36 [facility] 273 K/mm3 150-450 [facility] 8.2 fl 6.2-12.0 [facility] 63 mL/min >60 [facility] 76 mL/min >60 [facility] 58.65 ml/min [facility] 19.0 RATIO 10-20 [facility] 27.0 mmol/L 21.0-32.0 [facility] RBC Auto (Bld) [#/Vol]Ordere d By: Giuliano Pacheco on 12-10-2023 RBC (Bld) [#/Vol] 3.63 10*6/uL 4.6-6.2 [facility] Serum or plasma calcium elver urement (mass/volume)Ordered By: Giuliano Pacheco on 12-10-2023 Calcium [Mass/Vol] 8.9 mg/dL 8.5-10.1 [facility] Serum or plasma creatinine m easurement (mass/volume)Ordered By: Giuliano Pacheco on 12-10-2023 Creatinine [Mass/Vol] 1.21 mg/dL 0.70-1.30 [facility] Serum or plasma urea nitroge n measurement (mass/volume)Ordered By: Giuliano Pacheco on 12-10-2023 Urea nitrogen [Mass/Vol] 23 mg/dL 7-18 [facility] Thin prep Papanicolaou smear with manual screeningOrdered By: Giuliano Pacheco on 12-10-2023 Thin prep Papanicolaou smear with manual screening 6 5-15 [facility] Absolute lymphocyte countOrd ered By: Momo Patino on 12-09-2023 Lymphocytes Auto (Unsp spec) [#/Vol] 1.38 10*3/uL 0.83-4.51 [facility] Automated lymphocyte count a s percentage of total leukocytesOrdered By: Momo Patino on 12-09-2023 Lymphocytes/100 WBC Auto (Unsp spec) 22.6 % 19-41 [facility] Basophil percentageOrdered B y: Momo Patino on 12-09-2023 Basophils (Bld) [#/Vol] 3.8 10*3/uL 2.0-7.7 [facility] Basophils/100 WBC (Bld) 62.5 % 47-70 [facility] Basophils/100 WBC (Bld) 9.7 % 0-10 [facility] Basophils/100 WBC (Bld) 4.3 % 0-5 [facility] Basophils/100 WBC (Bld) 0.7 % 0-1 [facility] Erythrocyte sedimentation ra teOrdered By: Momo Patino on 12-09-2023 ESR (Bld) [Velocity] 32 mm/h 0-20 [facility] Immature granulocytes/100 WB C Auto (Bld)Ordered By: Momo Patino on 12-09-2023 Immature granulocytes/100 WBC (Bld) 0.200 % 0.0-0.9 [facility] No Panel InformationOrdered By: Momo Patino on 12-09-2023 0 % 0-5 [facility] 26.80 mg/L 0.0-3.0 [facility] Basophil percentageOrdered B y: Tarik Wilkinson on 11-27-2023 Basophil percentage 10.3 g/dL 13.0-16.5 [facility] Basophil percentage 100 mg/dL 74-106 [facility] Basophil percentage 139 mmol/L 136-145 [facility] Basophil percentage 3.0 mmol/L 3.5-5.1 [facility] Basophil percentage 104 mmol/L 98-107 [facility] Basophils (Bld) [#/Vol] 6.3 10*3/uL 4.4-11.0 [facility] Determination of erythrocyte mean corpuscular volume (MCV)Ordered By: Tarik Wilkinson on 11-27-2023 MCV (RBC) [Entitic vol] 90.9 fL 80-94 [facility] Erythrocyte distribution wid th ratioOrdered By: Tarik Wilkinson on 11-27-2023 Erythrocyte distribution width (RBC) [Ratio] 13.8 % 11.6-14.6 [facility] Erythrocyte distribution wid th standard deviationOrdered By: Tarik Wilkinson on 11-27-2023 Erythrocyte distribution width (RBC) [Entitic vol] 46.2 fL 35.1-43.9 [facility] Erythrocyte sedimentation ra teOrdered By: Tarik Wilkinson on 11-27-2023 ESR (Bld) [Velocity] 11 mm/h 0-20 [facility] Hematocrit Auto (Bld) [Volum e fraction]Ordered By: Tarik Wilkinson on 11-27-2023 Hematocrit (Bld) [Volume fraction] 32.9 % 40-54 [facility] No Panel InformationOrdered By: Tarik Wilkinson on 11-27-2023 28.5 pg 27.0-32.0 [facility] 31.3 g/dL 32-36 [facility] 313 K/mm3 150-450 [facility] 8.3 fl 6.2-12.0 [facility] 60 mL/min >60 [facility] 73 mL/min >60 [facility] 11.1 RATIO 10-20 [facility] 30.0 mmol/L 21.0-32.0 [facility] RBC Auto (Bld) [#/Vol]Ordere d By: Tarik Wilkinson on 11-27-2023 RBC (Bld) [#/Vol] 3.62 10*6/uL 4.6-6.2 [facility] Serum or plasma calcium elver urement (mass/volume)Ordered By: Tarik Wilkinson on 11-27-2023 Calcium [Mass/Vol] 9.1 mg/dL 8.5-10.1 [facility] Serum or plasma creatinine m easurement (mass/volume)Ordered By: Tarik Wilkinson on 11-27-2023 Creatinine [Mass/Vol] 1.26 mg/dL 0.70-1.30 [facility] Serum or plasma trough vanco mycin levelOrdered By: Tarik Wilkinson on 11-27-2023 Vancomycin trough [Mass/Vol] 21.3 ug/mL 5.0-15.0 [facility] Serum or plasma urea nitroge n measurement (mass/volume)Ordered By: Tarik Wilkinson on 11-27-2023 Urea nitrogen [Mass/Vol] 14 mg/dL 7-18 [facility] Thin prep Papanicolaou smear with manual screeningOrdered By: Tarik Wilkinson on 11-27-2023 Thin prep Papanicolaou smear with manual screening 5 5-15 [facility] Basophil percentageOrdered B y: Tarik Wilkinson on 11-20-2023 Basophil percentage 10.0 g/dL 13.0-16.5 [facility] Basophil percentage 158 mg/dL 74-106 [facility] Basophil percentage 137 mmol/L 136-145 [facility] Basophil percentage 3.0 mmol/L 3.5-5.1 [facility] Basophil percentage 99 mmol/L 98-107 [facility] Basophils (Bld) [#/Vol] 6.8 10*3/uL 4.4-11.0 [facility] Determination of erythrocyte mean corpuscular volume (MCV)Ordered By: Tarik Wilkinson on 11-20-2023 MCV (RBC) [Entitic vol] 86.8 fL 80-94 [facility] Erythrocyte distribution wid th ratioOrdered By: Tarik Wilkinson on 11-20-2023 Erythrocyte distribution width (RBC) [Ratio] 13.5 % 11.6-14.6 [facility] Erythrocyte distribution wid th standard deviationOrdered By: Tarik Wilkinson on 11-20-2023 Erythrocyte distribution width (RBC) [Entitic vol] 42.6 fL 35.1-43.9 [facility] Erythrocyte sedimentation ra teOrdered By: Tarik Wilkinson on 11-20-2023 ESR (Bld) [Velocity] 9 mm/h 0-20 [facility] Hematocrit Auto (Bld) [Volum e fraction]Ordered By: Tarik Wilkinson on 11-20-2023 Hematocrit (Bld) [Volume fraction] 30.3 % 40-54 [facility] No Panel InformationOrdered By: Tarik Wilkinson on 11-20-2023 28.7 pg 27.0-32.0 [facility] 33.0 g/dL 32-36 [facility] 278 K/mm3 150-450 [facility] 8.9 fl 6.2-12.0 [facility] 67 mL/min >60 [facility] 82 mL/min >60 [facility] 18.4 RATIO 10-20 [facility] 29.0 mmol/L 21.0-32.0 [facility] RBC Auto (Bld) [#/Vol]Ordere d By: Tarik Wilkinson on 11-20-2023 RBC (Bld) [#/Vol] 3.49 10*6/uL 4.6-6.2 [facility] Serum or plasma calcium elver urement (mass/volume)Ordered By: Tarik Wilkinson on 11-20-2023 Calcium [Mass/Vol] 8.7 mg/dL 8.5-10.1 [facility] Serum or plasma creatinine m easurement (mass/volume)Ordered By: Tarik Wilkinson on 11-20-2023 Creatinine [Mass/Vol] 1.14 mg/dL 0.70-1.30 [facility] Serum or plasma trough vanco mycin levelOrdered By: Tarik Wilkinson on 11-20-2023 Vancomycin trough [Mass/Vol] 18.4 ug/mL 5.0-15.0 [facility] Serum or plasma urea nitroge n measurement (mass/volume)Ordered By: Tarik Wilkinson on 11-20-2023 Urea nitrogen [Mass/Vol] 21 mg/dL 7-18 [facility] Thin prep Papanicolaou smear with manual screeningOrdered By: Tarki Wilkinson on 11-20-2023 Thin prep Papanicolaou smear with manual screening 9 5-15 [facility] Basophil percentageOrdered B y: Tarik Wilkinson on 11-10-2023 Basophil percentage 177 mg/dL 74-106 [facility] Basophil percentage 136 mmol/L 136-145 [facility] Basophil percentage 3.1 mmol/L 3.5-5.1 [facility] Basophil percentage 100 mmol/L 98-107 [facility] No Panel InformationOrdered By: Tarik Wilkinson on 11-10-2023 66 mL/min >60 [facility] 80 mL/min >60 [facility] 13.8 RATIO 10-20 [facility] 27.0 mmol/L 21.0-32.0 [facility] Serum or plasma calcium elver urement (mass/volume)Ordered By: Tarik Wilkinson on 11-10-2023 Calcium [Mass/Vol] 9.2 mg/dL 8.5-10.1 [facility] Serum or plasma creatinine m easurement (mass/volume)Ordered By: Tarik Wilkinson on 11-10-2023 Creatinine [Mass/Vol] 1.16 mg/dL 0.70-1.30 [facility] Serum or plasma trough vanco mycin levelOrdered By: Tarik Wilkinson on 11-10-2023 Vancomycin trough [Mass/Vol] 12.1 ug/mL 5.0-15.0 [facility] Serum or plasma urea nitroge n measurement (mass/volume)Ordered By: Tarik Wilkinson on 11-10-2023 Urea nitrogen [Mass/Vol] 16 mg/dL 7-18 [facility] Thin prep Papanicolaou smear with manual screeningOrdered By: Tarik Wilkinson on 11-10-2023 Thin prep Papanicolaou smear with manual screening 9 5-15 [facility] Basophil percentageOrdered B y: Tarik Wilkinson on 11-09-2023 Basophil percentage 112 mg/dL 74-106 [facility] Basophil percentage 138 mmol/L 136-145 [facility] Basophil percentage 3.4 mmol/L 3.5-5.1 [facility] Basophil percentage 103 mmol/L 98-107 [facility] No Panel InformationOrdered By: Tarik Wilkinson on 11-09-2023 65 mL/min >60 [facility] 79 mL/min >60 [facility] 11.1 RATIO 10-20 [facility] 27.0 mmol/L 21.0-32.0 [facility] Serum or plasma calcium elver urement (mass/volume)Ordered By: Tarik Wilkinson on 11-09-2023 Calcium [Mass/Vol] 9.2 mg/dL 8.5-10.1 [facility] Serum or plasma creatinine m easurement (mass/volume)Ordered By: Tarik Wilkinson on 11-09-2023 Creatinine [Mass/Vol] 1.17 mg/dL 0.70-1.30 [facility] Serum or plasma trough vanco mycin levelOrdered By: Tarik Wilkinson on 11-09-2023 Vancomycin trough [Mass/Vol] 22.4 ug/mL 5.0-15.0 [facility] Serum or plasma urea nitroge n measurement (mass/volume)Ordered By: Tarik Wilkinson on 11-09-2023 Urea nitrogen [Mass/Vol] 13 mg/dL 7-18 [facility] Thin prep Papanicolaou smear with manual screeningOrdered By: Tarik Wilkinson on 11-09-2023 Thin prep Papanicolaou smear with manual screening 8 5-15 [facility] Basophil percentageOrdered B y: Tarik Wilkinson on 11-06-2023 Basophil percentage 10.7 g/dL 13.0-16.5 [facility] Basophil percentage 108 mg/dL 74-106 [facility] Basophil percentage 137 mmol/L 136-145 [facility] Basophil percentage 3.5 mmol/L 3.5-5.1 [facility] Basophil percentage 102 mmol/L 98-107 [facility] Basophils (Bld) [#/Vol] 6.4 10*3/uL 4.4-11.0 [facility] Determination of erythrocyte mean corpuscular volume (MCV)Ordered By: Tarik Wilkinson on 11-06-2023 MCV (RBC) [Entitic vol] 91.8 fL 80-94 [facility] Erythrocyte distribution wid th ratioOrdered By: Tarik Wilkinson on 11-06-2023 Erythrocyte distribution width (RBC) [Ratio] 13.7 % 11.6-14.6 [facility] Erythrocyte distribution wid th standard deviationOrdered By: Tarik Wilkinson on 11-06-2023 Erythrocyte distribution width (RBC) [Entitic vol] 46.5 fL 35.1-43.9 [facility] Erythrocyte sedimentation ra teOrdered By: Tarik Wilkinson on 11-06-2023 ESR (Bld) [Velocity] 23 mm/h 0-20 [facility] Hematocrit Auto (Bld) [Volum e fraction]Ordered By: Tarik Wilkinson on 11-06-2023 Hematocrit (Bld) [Volume fraction] 33.5 % 40-54 [facility] No Panel InformationOrdered By: Tarik Wilkinson on 11-06-2023 29.3 pg 27.0-32.0 [facility] 31.9 g/dL 32-36 [facility] 365 K/mm3 150-450 [facility] 8.0 fl 6.2-12.0 [facility] 65 mL/min >60 [facility] 79 mL/min >60 [facility] 12.0 RATIO 10-20 [facility] 28.0 mmol/L 21.0-32.0 [facility] RBC Auto (Bld) [#/Vol]Ordere d By: Tarik Wilkinson on 11-06-2023 RBC (Bld) [#/Vol] 3.65 10*6/uL 4.6-6.2 [facility] Serum or plasma calcium elver urement (mass/volume)Ordered By: Tarik Wilkinson on 11-06-2023 Calcium [Mass/Vol] 9.1 mg/dL 8.5-10.1 [facility] Serum or plasma creatinine m easurement (mass/volume)Ordered By: Tarik Wilkinson on 11-06-2023 Creatinine [Mass/Vol] 1.17 mg/dL 0.70-1.30 [facility] Serum or plasma trough vanco mycin levelOrdered By: Tarik Wilkinson on 11-06-2023 Vancomycin trough [Mass/Vol] 43.2 ug/mL 5.0-15.0 [facility] Serum or plasma urea nitroge n measurement (mass/volume)Ordered By: Tarik Wilkinson on 11-06-2023 Urea nitrogen [Mass/Vol] 14 mg/dL 7-18 [facility] Thin prep Papanicolaou smear with manual screeningOrdered By: Tarik Wilkinson on 11-06-2023 Thin prep Papanicolaou smear with manual screening 7 5-15 [facility] Absolute lymphocyte countOrd ered By: Vin Edmond on 11-01-2023 Lymphocytes Auto (Unsp spec) [#/Vol] 1.02 10*3/uL 0.83-4.51 [facility] Activated partial thrombopla stin time (aPTT) in platelet poor plasma by coagulation aOrdered By: Vin Edmond on 11-01-2023 aPTT Coag (PPP) [Time] 31.0 s 24.1-36.2 [facility] Automated lymphocyte count a s percentage of total leukocytesOrdered By: Vin Edmond on 11-01-2023 Lymphocytes/100 WBC Auto (Unsp spec) 12.5 % 19-41 [facility] Basophil percentageOrdered B y: Vin Edmond on 11-01-2023 Basophil percentage 10.1 g/dL 13.0-16.5 [facility] Basophil percentage 98 mg/dL 74-106 [facility] Basophil percentage 139 mmol/L 136-145 [facility] Basophil percentage 3.4 mmol/L 3.5-5.1 [facility] Basophil percentage 103 mmol/L 98-107 [facility] Basophils (Bld) [#/Vol] 8.1 10*3/uL 4.4-11.0 [facility] Basophils (Bld) [#/Vol] 6.3 10*3/uL 2.0-7.7 [facility] Basophils/100 WBC (Bld) 77.4 % 47-70 [facility] Basophils/100 WBC (Bld) 7.6 % 0-10 [facility] Basophils/100 WBC (Bld) 1.7 % 0-5 [facility] Basophils/100 WBC (Bld) 0.2 % 0-1 [facility] Determination of erythrocyte mean corpuscular volume (MCV)Ordered By: Vin Edmond on 11-01-2023 MCV (RBC) [Entitic vol] 88.5 fL 80-94 [facility] Erythrocyte distribution wid th ratioOrdered By: Vin Edmond on 11-01-2023 Erythrocyte distribution width (RBC) [Ratio] 13.8 % 11.6-14.6 [facility] Erythrocyte distribution wid th standard deviationOrdered By: Vin Edmond on 11-01-2023 Erythrocyte distribution width (RBC) [Entitic vol] 44.5 fL 35.1-43.9 [facility] Hematocrit Auto (Bld) [Volum e fraction]Ordered By: Vin Edmond on 11-01-2023 Hematocrit (Bld) [Volume fraction] 30.8 % 40-54 [facility] Immature granulocytes/100 WB C Auto (Bld)Ordered By: Vin Edmond on 11-01-2023 Immature granulocytes/100 WBC (Bld) 0.600 % 0.0-0.9 [facility] No Panel InformationOrdered By: Vin Edmond on 11-01-2023 29.0 pg 27.0-32.0 [facility] 32.8 g/dL 32-36 [facility] 269 K/mm3 150-450 [facility] 7.8 fl 6.2-12.0 [facility] 0 % 0-5 [facility] 13.3 SECONDS 11.7-14.9 [facility] 1.0 [facility] 85 mL/min >60 [facility] 102 mL/min >60 [facility] 75.50 ml/min [facility] 10.7 RATIO 10-20 [facility] 29.0 mmol/L 21.0-32.0 [facility] RBC Auto (Bld) [#/Vol]Ordere d By: Vin Edmond on 11-01-2023 RBC (Bld) [#/Vol] 3.48 10*6/uL 4.6-6.2 [facility] Serum or plasma calcium elver urement (mass/volume)Ordered By: Vin Edmond on 11-01-2023 Calcium [Mass/Vol] 8.7 mg/dL 8.5-10.1 [facility] Serum or plasma creatinine m easurement (mass/volume)Ordered By: Vin Edmond on 11-01-2023 Creatinine [Mass/Vol] 0.94 mg/dL 0.70-1.30 [facility] Serum or plasma urea nitroge n measurement (mass/volume)Ordered By: Vin Edmond on 11-01-2023 Urea nitrogen [Mass/Vol] 10 mg/dL - [facility] Thin prep Papanicolaou smear with manual screeningOrdered By: Vin Edmond on 11-01-2023 Thin prep Papanicolaou smear with manual screening 7 5-15 [facility] Basophil percentageOrdered B y: Tarik Wilkinson on 10-30-2023 Basophil percentage 10.8 g/dL 13.0-16.5 [facility] Basophil percentage 125 mg/dL 74-106 [facility] Basophil percentage 138 mmol/L 136-145 [facility] Basophil percentage 3.4 mmol/L 3.5-5.1 [facility] Basophil percentage 105 mmol/L 98-107 [facility] Basophils (Bld) [#/Vol] 7.2 10*3/uL 4.4-11.0 [facility] Determination of erythrocyte mean corpuscular volume (MCV)Ordered By: Tarik Wilkinson on 10-30-2023 MCV (RBC) [Entitic vol] 89.3 fL 80-94 [facility] Erythrocyte distribution wid th ratioOrdered By: Tarik Wilkinson on 10-30-2023 Erythrocyte distribution width (RBC) [Ratio] 13.9 % 11.6-14.6 [facility] Erythrocyte distribution wid th standard deviationOrdered By: Tarik Wilkinson on 10-30-2023 Erythrocyte distribution width (RBC) [Entitic vol] 45.3 fL 35.1-43.9 [facility] Erythrocyte sedimentation ra teOrdered By: Tarik Wilkinson on 10-30-2023 ESR (Bld) [Velocity] 19 mm/h 0-20 [facility] Hematocrit Auto (Bld) [Volum e fraction]Ordered By: Tarik Wilkinson on 10-30-2023 Hematocrit (Bld) [Volume fraction] 33.5 % 40-54 [facility] No Panel InformationOrdered By: Tarik Wilkinson on 10-30-2023 28.8 pg 27.0-32.0 [facility] 32.2 g/dL 32-36 [facility] 305 K/mm3 150-450 [facility] 8.5 fl 6.2-12.0 [facility] 83 mL/min >60 [facility] 101 mL/min >60 [facility] 12.6 RATIO 10-20 [facility] 27.0 mmol/L 21.0-32.0 [facility] RBC Auto (Bld) [#/Vol]Ordere d By: Tarik Wilkinson on 10-30-2023 RBC (Bld) [#/Vol] 3.75 10*6/uL 4.6-6.2 [facility] Serum or plasma calcium elver urement (mass/volume)Ordered By: Tarik Wilkinson on 10-30-2023 Calcium [Mass/Vol] 9.0 mg/dL 8.5-10.1 [facility] Serum or plasma creatinine m easurement (mass/volume)Ordered By: Tarik Wilkinson on 10-30-2023 Creatinine [Mass/Vol] 0.95 mg/dL 0.70-1.30 [facility] Serum or plasma trough vanco mycin levelOrdered By: Tarik Wilkinson on 10-30-2023 Vancomycin trough [Mass/Vol] 26.1 ug/mL 5.0-15.0 [facility] Serum or plasma urea nitroge n measurement (mass/volume)Ordered By: Tarik Wilkinson on 10-30-2023 Urea nitrogen [Mass/Vol] 12 mg/dL -18 [facility] Thin prep Papanicolaou smear with manual screeningOrdered By: Tarik Wilkinson on 10-30-2023 Thin prep Papanicolaou smear with manual screening 6 5-15 [facility] Absolute lymphocyte countOrd ered By: Ochoa Figueroa on 10-26-2023 Lymphocytes Auto (Unsp spec) [#/Vol] 1.15 10*3/uL 0.83-4.51 [facility] Automated lymphocyte count a s percentage of total leukocytesOrdered By: Ochoa Figueroa on 10-26-2023 Lymphocytes/100 WBC Auto (Unsp spec) 13.5 % 19-41 [facility] Basophil percentageOrdered B y: Ochoa Figueroa on 10-26-2023 Basophil percentage 12.4 g/dL 13.0-16.5 [facility] Basophil percentage 119 mg/dL 74-106 [facility] Basophil percentage 2.7 mg/dL 2.5-4.9 [facility] Basophil percentage 131 mmol/L 136-145 [facility] Basophil percentage 3.6 mmol/L 3.5-5.1 [facility] Basophil percentage 99 mmol/L 98-107 [facility] Basophils (Bld) [#/Vol] 8.6 10*3/uL 4.4-11.0 [facility] Basophils (Bld) [#/Vol] 6.5 10*3/uL 2.0-7.7 [facility] Basophils/100 WBC (Bld) 75.9 % 47-70 [facility] Basophils/100 WBC (Bld) 8.8 % 0-10 [facility] Basophils/100 WBC (Bld) 0.8 % 0-5 [facility] Basophils/100 WBC (Bld) 0.5 % 0-1 [facility] Determination of erythrocyte mean corpuscular volume (MCV)Ordered By: Ochoa Figueroa on 10-26-2023 MCV (RBC) [Entitic vol] 82.6 fL 80-94 [facility] Erythrocyte distribution wid th ratioOrdered By: Ochoa Figueroa on 10-26-2023 Erythrocyte distribution width (RBC) [Ratio] 13.3 % 11.6-14.6 [facility] Erythrocyte distribution wid th standard deviationOrdered By: Ochoa Figueroa on 10-26-2023 Erythrocyte distribution width (RBC) [Entitic vol] 39.8 fL 35.1-43.9 [facility] Hematocrit Auto (Bld) [Volum e fraction]Ordered By: Ochoa Figueroa on 10-26-2023 Hematocrit (Bld) [Volume fraction] 36.6 % 40-54 [facility] Immature granulocytes/100 WB C Auto (Bld)Ordered By: Ochoa Figueroa on 10-26-2023 Immature granulocytes/100 WBC (Bld) 0.500 % 0.0-0.9 [facility] No Panel InformationOrdered By: Ochoa Figueroa on 10-26-2023 28.0 pg 27.0-32.0 [facility] 33.9 g/dL 32-36 [facility] 248 K/mm3 150-450 [facility] 7.9 fl 6.2-12.0 [facility] 0 % 0-5 [facility] 137 mL/min >60 [facility] 166 mL/min >60 [facility] 88.72 ml/min [facility] 22.7 RATIO 10-20 [facility] 23.0 mmol/L 21.0-32.0 [facility] RBC Auto (Bld) [#/Vol]Ordere d By: Ochoa Figueroa on 10-26-2023 RBC (Bld) [#/Vol] 4.43 10*6/uL 4.6-6.2 [facility] Serum or plasma calcium elver urement (mass/volume)Ordered By: Ochoa Figueroa on 10-26-2023 Calcium [Mass/Vol] 8.7 mg/dL 8.5-10.1 [facility] Serum or plasma creatinine m easurement (mass/volume)Ordered By: Ochoa Figueroa on 10-26-2023 Creatinine [Mass/Vol] 0.62 mg/dL 0.70-1.30 [facility] Serum or plasma urea nitroge n measurement (mass/volume)Ordered By: Ochoa Figueroa on 10-26-2023 Urea nitrogen [Mass/Vol] 14 mg/dL 7-18 [facility] Thin prep Papanicolaou smear with manual screeningOrdered By: Vin Wheatley on 10-26-2023 Thin prep Papanicolaou smear with manual screening 170 mg/dL 74-106 [facility] Thin prep Papanicolaou smear with manual screening 180 mg/dL 74-106 [facility] Thin prep Papanicolaou smear with manual screeningOrdered By: Ochoa Figueroa on 10-26-2023 Thin prep Papanicolaou smear with manual screening 9 5-15 [facility] Anaerobic cultureOrdered By: Carmita Ponce on 10-25-2023 Bacteria identified Anaer cx Nom (Unsp spec) No growth in 5 days. [facility] Fungus stainOrdered By: Tana Ponce on 10-25-2023 Fungus identified Fungus stain Nom (Unsp spec) [facility] Gram stain for investigation of transfusion reactionOrdered By: Carmita Ponce on 10-25-2023 Microscopic observation Gram stain Nom (Unsp spec) [facility] No Panel InformationOrdered By: Ventura Godoy on 10-25-2023 SEE PATHOLOGY REPORT [facility] No Panel InformationOrdered By: Carmita Ponce on 10-25-2023 No growth aerobically. [facility] No Panel InformationOrdered By: Rad Kobl on 10-25-2023 13.6 SECONDS 11.7-14.9 [facility] 1.0 [facility] Serum or plasma trough vanco mycin levelOrdered By: Tarik Wilkinson on 10-25-2023 Vancomycin trough [Mass/Vol] 13.6 ug/mL 5.0-15.0 [facility] Whole blood hemoglobin A1c/t otal hemoglobin ratio (mass fraction)Ordered By: Rad Kolb on 10-25-2023 HbA1c (Bld) [Mass fraction] 6.2 % 3.8-5.6 [facility] Basophil percentageOrdered B y: Ochoa Figueroa on 10-24-2023 Basophil percentage 5.9 g/dL 6.4-8.2 [facility] Basophil percentage 1.40 mg/dL 0.20-1.00 [facility] No Panel InformationOrdered By: Ochoa Figueroa on 10-24-2023 3.1 g/dL 2.2-4.2 [facility] 0.9 RATIO 0.9-2.4 [facility] 72 U/L 45-117 [facility] 18 U/L 16-61 [facility] Thin prep Papanicolaou smear with manual screeningOrdered By: Ochoa Figueroa on 10-24-2023 Thin prep Papanicolaou smear with manual screening 2.8 g/dL 3.2-5.0 [facility] Thin prep Papanicolaou smear with manual screening 17 U/L 15-37 [facility] No Panel InformationOrdered By: Ochoa Figueroa on 10-23-2023 177 pg/mL 211-911 [facility] Serum or plasma thyroid stim ulating hormone (TSH) measurement (units/volume)Ordered By: Ochoa Figueroa on 10-23-2023 TSH Qn 2.40 uIU/mL 0.358-3.74 [facility] Basophil percentageOrdered B y: Sara Reaves on 10-22-2023 Basophil percentage 179 mg/dL <200 [facility] Basophil percentage 59 mg/dL <199 [facility] No Panel InformationOrdered By: Sara Reaves on 10-22-2023 No growth in 5 days. [facility] 2.7 mg/dL 1.6-2.6 [facility] 44 mg/dL >40 [facility] 123 mg/dL 0-130 [facility] 12 mg/dL 5-40 [facility] Respiratory pathogens detect ion panel by molecular detection methodOrdered By: Sara Reaves on 10-22-2023 Respiratory pathogens DNA and RNA panel CHARLES+probe (Resp) [facility] Serum procalcitonin measurem entOrdered By: Sara Reaves on 10-22-2023 Procalcitonin [Mass/Vol] ng/mL 0.00-0.09 [facility] Absolute lymphocyte countOrd ered By: Kayli Granados on 10-21-2023 Lymphocytes Auto (Unsp spec) [#/Vol] 2.09 10*3/uL 0.83-4.51 [facility] Activated partial thrombopla stin time (aPTT) in platelet poor plasma by coagulation aOrdered By: Kayli Granados on 10-21-2023 aPTT Coag (PPP) [Time] 26.6 s 24.1-36.2 [facility] Automated lymphocyte count a s percentage of total leukocytesOrdered By: Kayli Granados on 10-21-2023 Lymphocytes/100 WBC Auto (Unsp spec) 20.2 % 19-41 [facility] Basophil percentageOrdered B y: Kayli Granados on 10-21-2023 Basophil percentage < 10.0 umol/L 11-32 [facility] Basophil percentage 0-5 SEEN /hpf 0-5 [facility] Basophil percentage 13.1 g/dL 13.0-16.5 [facility] Basophil percentage 131 mg/dL 74-106 [facility] Basophil percentage 131 mmol/L 136-145 [facility] Basophil percentage 3.2 mmol/L 3.5-5.1 [facility] Basophil percentage 97 mmol/L 98-107 [facility] Basophils (Bld) [#/Vol] 10.3 10*3/uL 4.4-11.0 [facility] Basophils (Bld) [#/Vol] 7.2 10*3/uL 2.0-7.7 [facility] Basophils/100 WBC (Bld) 69.6 % 47-70 [facility] Basophils/100 WBC (Bld) 9.6 % 0-10 [facility] Basophils/100 WBC (Bld) 0.0 % 0-5 [facility] Basophils/100 WBC (Bld) 0.2 % 0-1 [facility] Bilirubin Test strip Ql (U)O rdered By: Kayli Granados on 10-21-2023 Bilirubin Ql (U) Negative Negative [facility] Determination of erythrocyte mean corpuscular volume (MCV)Ordered By: Kayli Granados on 10-21-2023 MCV (RBC) [Entitic vol] 85.0 fL 80-94 [facility] Erythrocyte distribution wid th ratioOrdered By: Kayli Granados on 10-21-2023 Erythrocyte distribution width (RBC) [Ratio] 13.3 % 11.6-14.6 [facility] Erythrocyte distribution wid th standard deviationOrdered By: Kayli Granados on 10-21-2023 Erythrocyte distribution width (RBC) [Entitic vol] 41.1 fL 35.1-43.9 [facility] Hematocrit Auto (Bld) [Volum e fraction]Ordered By: Kayli Granados on 10-21-2023 Hematocrit (Bld) [Volume fraction] 39.1 % 40-54 [facility] Immature granulocytes/100 WB C Auto (Bld)Ordered By: Kayli Granados on 10-21-2023 Immature granulocytes/100 WBC (Bld) 0.400 % 0.0-0.9 [facility] Ketones Test strip Ql (U)Ord ered By: Kayli Granados on 10-21-2023 Ketones Ql (U) 15 mg/dl Negative [facility] Mucus LM Ql (Urine sed)Order ed By: Kayli Granadso on 10-21-2023 Mucus Ql (Urine sed) 0 SEEN /hpf [facility] Nitrite Test strip Ql (U)Ord ered By: Kayli Granados on 10-21-2023 Nitrite Ql (U) Negative Negative [facility] No Panel InformationOrdered By: Kayli Granados on 10-21-2023 0 SEEN /hpf 0-5 [facility] 28.5 pg 27.0-32.0 [facility] 33.5 g/dL 32-36 [facility] 343 K/mm3 150-450 [facility] 8.1 fl 6.2-12.0 [facility] 0 % 0-5 [facility] 13.7 SECONDS 11.7-14.9 [facility] 1.1 [facility] 96 mL/min >60 [facility] 116 mL/min >60 [facility] 84.49 ml/min [facility] 28.5 RATIO 10-20 [facility] 28 pg/mL 3.0-78.0 [facility] 26.0 mmol/L 21.0-32.0 [facility] No Panel InformationOrdered By: Sara White on 10-21-2023 1.4 mg/dL 1.6-2.6 [facility] Protein Test strip Ql (U)Ord ered By: Kayli Granados on 10-21-2023 Protein Ql (U) 30 mg/dl Negative [facility] RBC Auto (Bld) [#/Vol]Ordere d By: Kayli Granados on 10-21-2023 RBC (Bld) [#/Vol] 4.60 10*6/uL 4.6-6.2 ost er [facility] Serum or plasma calcium elver urement (mass/volume)Ordered By: Kayli Granados on 10-21-2023 Calcium [Mass/Vol] 9.5 mg/dL 8.5-10.1 [facility] Serum or plasma creatinine m easurement (mass/volume)Ordered By: Kayli Granados on 10-21-2023 Creatinine [Mass/Vol] 0.84 mg/dL 0.70-1.30 [facility] Serum or plasma urea nitroge n measurement (mass/volume)Ordered By: Kayli Granados on 10-21-2023 Urea nitrogen [Mass/Vol] 24 mg/dL 7-18 [facility] Squamous epithelial cells de tection in urine sediment by light microscopyOrdered By: Kayli Granados on 10-21-2023 Epithelial cells.squamous LM Ql (Urine sed) 0 SEEN /hpf 0-5 [facility] Thin prep Papanicolaou smear with manual screeningOrdered By: Kayli Granados on 10-21-2023 Thin prep Papanicolaou smear with manual screening 8 5-15 [facility] Urine blood detectionOrdered By: Kayli Granados on 10-21-2023 RBC Ql (U) 25 /ul Negative [facility] Urine clarityOrdered By: Gracie Granados on 10-21-2023 Clarity (U) Clear Clear [facility] Urine color determinationOrd ered By: Kayli Granados on 10-21-2023 Color (U) Yellow Yellow [facility] Urine glucose detectionOrder ed By: Kayli Granados on 10-21-2023 Glucose Ql (U) 50 mg/dl Normal [facility] Urine leukocyte esterase det ection by dipstickOrdered By: Kayli Granados on 10-21-2023 Leukocyte esterase Test strip Ql (U) 25 /ul Negative [facility] Urine pHOrdered By: Kayli mares on 10-21-2023 pH (U) 7.0 [pH] 5.0 - 8.0 [facility] Urine sediment bacteria coun t by microscopy (number/high power field)Ordered By: Kayli Granados on 10-21-2023 Bacteria LM.HPF (Urine sed) [#/Area] 0 /[HPF] None Seen [facility] Urine specific gravity measu rementOrdered By: Kayli Granados on 10-21-2023 Specific gravity (U) [Rel density] 1.010 1.002-1.030 [facility] Urine urobilinogen measureme ntOrdered By: Kayli Granados on 10-21-2023 Urobilinogen Ql (U) Normal mg/dl Normal [facility] EGD Study observation Narrat abbion 10-11-2023 [facility] Absolute lymphocyte countOrd ered By: Elvia Pineda on 10-01-2023 Lymphocytes Auto (Unsp spec) [#/Vol] 2.11 10*3/uL 0.83-4.51 [facility] Amorphous sediment detection in urine sediment by light microscopyOrdered By: Elvia Pineda on 10-01-2023 Amorphous sediment LM Ql (Urine sed) 1+ URATE [facility] Automated lymphocyte count a s percentage of total leukocytesOrdered By: Elvia Pineda on 10-01-2023 Lymphocytes/100 WBC Auto (Unsp spec) 22.9 % 19-41 [facility] Basophil percentageOrdered B y: Elvia Pineda on 10-01-2023 Basophil percentage 0 SEEN /hpf 0-5 [facility] Basophil percentage 13.2 g/dL 13.0-16.5 [facility] Basophil percentage 141 mg/dL 74-106 [facility] Basophil percentage 7.6 g/dL 6.4-8.2 [facility] Basophil percentage 1.20 mg/dL 0.20-1.00 [facility] Basophil percentage 133 mmol/L 136-145 [facility] Basophil percentage 3.4 mmol/L 3.5-5.1 [facility] Basophil percentage 99 mmol/L 98-107 [facility] Basophils (Bld) [#/Vol] 9.2 10*3/uL 4.4-11.0 [facility] Basophils (Bld) [#/Vol] 6.2 10*3/uL 2.0-7.7 [facility] Basophils/100 WBC (Bld) 67.5 % 47-70 [facility] Basophils/100 WBC (Bld) 8.7 % 0-10 [facility] Basophils/100 WBC (Bld) 0.2 % 0-5 [facility] Basophils/100 WBC (Bld) 0.4 % 0-1 [facility] Bilirubin Test strip Ql (U)O rdered By: Elvia Pineda on 10-01-2023 Bilirubin Ql (U) Negative Negative [facility] Determination of erythrocyte mean corpuscular volume (MCV)Ordered By: Elvia Pineda on 10-01-2023 MCV (RBC) [Entitic vol] 86.2 fL 80-94 [facility] Erythrocyte distribution wid th ratioOrdered By: Elvia Pineda on 10-01-2023 Erythrocyte distribution width (RBC) [Ratio] 12.9 % 11.6-14.6 [facility] Erythrocyte distribution wid th standard deviationOrdered By: Elvia Pineda on 10-01-2023 Erythrocyte distribution width (RBC) [Entitic vol] 39.9 fL 35.1-43.9 [facility] Erythrocyte sedimentation ra teOrdered By: Elvia Pineda on 10-01-2023 ESR (Bld) [Velocity] 10 mm/h 0-20 [facility] Hematocrit Auto (Bld) [Volum e fraction]Ordered By: Elvia Pineda on 10-01-2023 Hematocrit (Bld) [Volume fraction] 40.1 % 40-54 [facility] Immature granulocytes/100 WB C Auto (Bld)Ordered By: Elvia Pineda on 10-01-2023 Immature granulocytes/100 WBC (Bld) 0.300 % 0.0-0.9 [facility] Ketones Test strip Ql (U)Ord ered By: Elvia Pineda on 10-01-2023 Ketones Ql (U) 15 mg/dl Negative [facility] Mucus LM Ql (Urine sed)Order ed By: Elvia Pineda on 10-01-2023 Mucus Ql (Urine sed) 0 SEEN /hpf [facility] Nitrite Test strip Ql (U)Ord ered By: Elvia Pineda on 10-01-2023 Nitrite Ql (U) Negative Negative [facility] No Panel InformationOrdered By: Elvia Pineda on 10-01-2023 0 SEEN /hpf 0-5 [facility] 28.4 pg 27.0-32.0 [facility] 32.9 g/dL 32-36 [facility] 316 K/mm3 150-450 [facility] 8.2 fl 6.2-12.0 [facility] 0 % 0-5 [facility] 76 mL/min >60 [facility] 92 mL/min >60 [facility] 68.91 ml/min [facility] 19.4 RATIO 10-20 [facility] 3.9 g/dL 2.2-4.2 [facility] 0.9 RATIO 0.9-2.4 [facility] 33 U/L 13-75 [facility] 102 U/L 45-117 [facility] 21 U/L 16-61 [facility] 26.0 mmol/L 21.0-32.0 [facility] 8.12 mg/L 0.0-3.0 [facility] Protein Test strip Ql (U)Ord ered By: Elvia Pineda on 10-01-2023 Protein Ql (U) Negative Negative [facility] RBC Auto (Bld) [#/Vol]Ordere d By: Elvia Pineda on 10-01-2023 RBC (Bld) [#/Vol] 4.65 10*6/uL 4.6-6.2 [facility] Serum or plasma calcium elver urement (mass/volume)Ordered By: Elvia Pineda on 10-01-2023 Calcium [Mass/Vol] 9.4 mg/dL 8.5-10.1 [facility] Serum or plasma creatinine m easurement (mass/volume)Ordered By: Elvia Pineda on 10-01-2023 Creatinine [Mass/Vol] 1.03 mg/dL 0.70-1.30 [facility] Serum or plasma urea nitroge n measurement (mass/volume)Ordered By: Elvia Pineda on 10-01-2023 Urea nitrogen [Mass/Vol] 20 mg/dL 7-18 [facility] Squamous epithelial cells de tection in urine sediment by light microscopyOrdered By: Elvia Pineda on 10-01-2023 Epithelial cells.squamous LM Ql (Urine sed) 0-5 SEEN /hpf 0-5 [facility] Thin prep Papanicolaou smear with manual screeningOrdered By: Elvia Pineda on 10-01-2023 Thin prep Papanicolaou smear with manual screening 3.7 g/dL 3.2-5.0 [facility] Thin prep Papanicolaou smear with manual screening 19 U/L 15-37 [facility] Thin prep Papanicolaou smear with manual screening 8 5-15 [facility] Urine blood detectionOrdered By: Elvia Pineda on 10-01-2023 RBC Ql (U) Negative Negative [facility] Urine clarityOrdered By: Kezia Pineda on 10-01-2023 Clarity (U) Sl. Cloudy Clear [facility] Urine color determinationOrd ered By: Elvia Pineda on 10-01-2023 Color (U) Yellow Yellow [facility] Urine glucose detectionOrder ed By: Elvia Pineda on 10-01-2023 Glucose Ql (U) Normal mg/dl Normal [facility] Urine leukocyte esterase det ection by dipstickOrdered By: Elvia Pineda on 10-01-2023 Leukocyte esterase Test strip Ql (U) Negative Negative [facility] Urine pHOrdered By: Elvia Pineda on 10-01-2023 pH (U) 6.0 [pH] 5.0 - 8.0 [facility] Urine sediment bacteria coun t by microscopy (number/high power field)Ordered By: Elvia Pineda on 10-01-2023 Bacteria LM.HPF (Urine sed) [#/Area] 0 /[HPF] None Seen [facility] Urine specific gravity measu rementOrdered By: Elvia Pineda on 10-01-2023 Specific gravity (U) [Rel density] 1.010 1.002-1.030 [facility] Urine urobilinogen measureme ntOrdered By: Elvia Pineda on 10-01-2023 Urobilinogen Ql (U) Normal mg/dl Normal [facility] Absolute lymphocyte countOrd ered By: Marshall Bear on 09-27-2023 Lymphocytes Auto (Unsp spec) [#/Vol] 2.20 10*3/uL 0.83-4.51 [facility] Automated lymphocyte count a s percentage of total leukocytesOrdered By: Marshall Bear on 09-27-2023 Lymphocytes/100 WBC Auto (Unsp spec) 22.8 % 19-41 [facility] Basophil percentageOrdered B y: Marshall Bear on 09-27-2023 Basophil percentage 13.1 g/dL 13.0-16.5 [facility] Basophil percentage 0 SEEN /hpf 0-5 [facility] Basophil percentage 145 mg/dL 74-106 [facility] Basophil percentage 7.7 g/dL 6.4-8.2 [facility] Basophil percentage 1.00 mg/dL 0.20-1.00 [facility] Basophil percentage 136 mmol/L 136-145 [facility] Basophil percentage 3.7 mmol/L 3.5-5.1 [facility] Basophil percentage 101 mmol/L 98-107 [facility] Basophils (Bld) [#/Vol] 9.7 10*3/uL 4.4-11.0 [facility] Basophils (Bld) [#/Vol] 6.5 10*3/uL 2.0-7.7 [facility] Basophils/100 WBC (Bld) 67.0 % 47-70 [facility] Basophils/100 WBC (Bld) 9.1 % 0-10 [facility] Basophils/100 WBC (Bld) 0.3 % 0-5 [facility] Basophils/100 WBC (Bld) 0.4 % 0-1 [facility] Bilirubin Test strip Ql (U)O rdered By: Marshall Bear on 09-27-2023 Bilirubin Ql (U) Negative Negative [facility] Determination of erythrocyte mean corpuscular volume (MCV)Ordered By: Marshall Bear on 09-27-2023 MCV (RBC) [Entitic vol] 87.4 fL 80-94 [facility] Erythrocyte distribution wid th ratioOrdered By: Marshall Bear on 09-27-2023 Erythrocyte distribution width (RBC) [Ratio] 13.0 % 11.6-14.6 [facility] Erythrocyte distribution wid th standard deviationOrdered By: Marshall Bear on 09-27-2023 Erythrocyte distribution width (RBC) [Entitic vol] 40.9 fL 35.1-43.9 [facility] Erythrocyte sedimentation ra teOrdered By: Marshall Bear on 09-27-2023 ESR (Bld) [Velocity] 12 mm/h 0-20 [facility] Hematocrit Auto (Bld) [Volum e fraction]Ordered By: Marshall Bear on 09-27-2023 Hematocrit (Bld) [Volume fraction] 40.4 % 40-54 [facility] Immature granulocytes/100 WB C Auto (Bld)Ordered By: Marshall Bear on 09-27-2023 Immature granulocytes/100 WBC (Bld) 0.400 % 0.0-0.9 [facility] Ketones Test strip Ql (U)Ord ered By: Marshall Bear on 09-27-2023 Ketones Ql (U) Negative Negative [facility] Mucus LM Ql (Urine sed)Order ed By: Marshall Bear on 09-27-2023 Mucus Ql (Urine sed) 0 SEEN /hpf [facility] Nitrite Test strip Ql (U)Ord ered By: Marshall Bear on 09-27-2023 Nitrite Ql (U) Negative Negative [facility] No Panel InformationOrdered By: Marshall Bear on 09-27-2023 28.4 pg 27.0-32.0 [facility] 32.4 g/dL 32-36 [facility] 352 K/mm3 150-450 [facility] 8.3 fl 6.2-12.0 [facility] 0 % 0-5 [facility] 0 SEEN /hpf 0-5 [facility] 93 mL/min >60 [facility] 113 mL/min >60 [facility] 16.3 RATIO 10-20 [facility] 4.0 g/dL 2.2-4.2 [facility] 0.9 RATIO 0.9-2.4 [facility] 106 U/L 45-117 [facility] 27 U/L 16-61 [facility] 26.0 mmol/L 21.0-32.0 [facility] < 2.90 mg/L 0.0-3.0 [facility] Protein Test strip Ql (U)Ord ered By: Marshall Bear on 09-27-2023 Protein Ql (U) Negative Negative [facility] RBC Auto (Bld) [#/Vol]Ordere d By: Marshall Bear on 09-27-2023 RBC (Bld) [#/Vol] 4.62 10*6/uL 4.6-6.2 [place] [facility] Serum or plasma calcium elver urement (mass/volume)Ordered By: Marshall Bear on 09-27-2023 Calcium [Mass/Vol] 9.4 mg/dL 8.5-10.1 [facility] Serum or plasma creatinine m easurement (mass/volume)Ordered By: Marshall Bear on 09-27-2023 Creatinine [Mass/Vol] 0.86 mg/dL 0.70-1.30 [facility] Serum or plasma thyroid stim ulating hormone (TSH) measurement (units/volume)Ordered By: Marshall Bear on 09-27-2023 TSH Qn 1.61 uIU/mL 0.358-3.74 [facility] Serum or plasma urea nitroge n measurement (mass/volume)Ordered By: Marshall Bear on 09-27-2023 Urea nitrogen [Mass/Vol] 14 mg/dL 7-18 [facility] Squamous epithelial cells de tection in urine sediment by light microscopyOrdered By: Marshall Bear on 09-27-2023 Epithelial cells.squamous LM Ql (Urine sed) 0 SEEN /hpf 0-5 [facility] Thin prep Papanicolaou smear with manual screeningOrdered By: Marshall Bear on 09-27-2023 Thin prep Papanicolaou smear with manual screening 3.7 g/dL 3.2-5.0 [facility] Thin prep Papanicolaou smear with manual screening 18 U/L 15-37 [facility] Thin prep Papanicolaou smear with manual screening 9 5-15 [facility] Urine blood detectionOrdered By: Marshall Bear on 09-27-2023 RBC Ql (U) Negative Negative [facility] Urine clarityOrdered By: Kristen Bear on 09-27-2023 Clarity (U) Clear Clear [facility] Urine color determinationOrd ered By: Marshall Bear on 09-27-2023 Color (U) YELLOW Yellow [facility] Urine glucose detectionOrder ed By: Marshall Bear on 09-27-2023 Glucose Ql (U) Normal mg/dl Normal [facility] Urine leukocyte esterase det ection by dipstickOrdered By: Marshall Bear on 09-27-2023 Leukocyte esterase Test strip Ql (U) Negative Negative [facility] Urine pHOrdered By: Marshall villalba on 09-27-2023 pH (U) 6.0 [pH] 5.0 - 8.0 [facility] Urine sediment bacteria coun t by microscopy (number/high power field)Ordered By: Marshall Bear on 09-27-2023 Bacteria LM.HPF (Urine sed) [#/Area] 0 /[HPF] None Seen [facility] Urine specific gravity measu rementOrdered By: Marshall Bear on 09-27-2023 Specific gravity (U) [Rel density] 1.010 1.002-1.030 [facility] Urine urobilinogen measureme ntOrdered By: Marshall Bear on 09-27-2023 Urobilinogen Ql (U) Normal mg/dl Normal [facility] Basophil percentageOrdered B y: Jeff Meek on 09-26-2023 Basophil percentage 0 SEEN /hpf 0-5 [facility] Bilirubin Test strip Ql (U)O rdered By: Jeff Meek on 09-26-2023 Bilirubin Ql (U) 1 mg/dL Negative [facility] Culture, urineOrdered By: St kelli Meek on 09-26-2023 Bacteria identified Cx Nom (U) Culture exhibits no growth. [facility] Bacteria identified Cx Nom (U) Culture exhibits no growth. [facility] Ketones Test strip Ql (U)Ord ered By: Jeff Meek on 09-26-2023 Ketones Ql (U) 5 mg/dl Negative [facility] Mucus LM Ql (Urine sed)Order ed By: Jeff Meek on 09-26-2023 Mucus Ql (Urine sed) 0 SEEN /hpf [facility] Nitrite Test strip Ql (U)Ord ered By: Jeff Meek on 09-26-2023 Nitrite Ql (U) Negative Negative [facility] No Panel InformationOrdered By: Jeff Meek on 09-26-2023 0-5 SEEN /hpf 0-5 [facility] No Panel Informationon 09-26 [facility] Clear [facility] Negative [facility] 1.010 [facility] 7.0 [facility] Large (3+) [facility] 2+ [facility] Negatve [facility] Negative [facility] Negative [facility] Protein Test strip Ql (U)Ord ered By: Jeff Meek on 09-26-2023 Protein Ql (U) 30 mg/dl Negative [facility] Squamous epithelial cells de tection in urine sediment by light microscopyOrdered By: Jeff Meek on 09-26-2023 Epithelial cells.squamous LM Ql (Urine sed) 0 SEEN /hpf 0-5 [facility] Urine blood detectionOrdered By: Jeff Meek on 09-26-2023 RBC Ql (U) Negative Negative [facility] Urine clarityOrdered By: Bryan Meek on 09-26-2023 Clarity (U) Clear Clear [facility] Urine color determinationOrd ered By: Jeff Meek on 09-26-2023 Color (U) Yellow Yellow [facility] Urine glucose detectionOrder ed By: Jeff Meek on 09-26-2023 Glucose Ql (U) Normal mg/dl Normal [facility] Urine leukocyte esterase det ection by dipstickOrdered By: Jeff Meek on 09-26-2023 Leukocyte esterase Test strip Ql (U) 25 /ul Negative [facility] Urine pHOrdered By: Jeff goss on 09-26-2023 pH (U) 5.0 [pH] 5.0 - 8.0 [facility] Urine sediment bacteria coun t by microscopy (number/high power field)Ordered By: Jeff Meek on 09-26-2023 Bacteria LM.HPF (Urine sed) [#/Area] 0 /[HPF] None Seen [facility] Urine specific gravity measu rementOrdered By: Jeff Meek on 09-26-2023 Specific gravity (U) [Rel density] 1.015 1.002-1.030 [facility] Urine urobilinogen measureme ntOrdered By: Jeff Meek on 09-26-2023 Urobilinogen Ql (U) 1 mg/dl Normal [facility] Absolute lymphocyte countOrd ered By: Marshall Bear on 08-21-2023 Lymphocytes Auto (Unsp spec) [#/Vol] 1.86 10*3/uL 0.83-4.51 [facility] Basophil percentageOrdered B y: Marshall Hernandezner on 08-21-2023 Basophil percentage 118 mg/dL 74-106 [facility] Basophil percentage 7.5 g/dL 6.4-8.2 [facility] Basophil percentage 0.80 mg/dL 0.20-1.00 [facility] Basophil percentage 136 mmol/L 136-145 [facility] Basophil percentage 4.0 mmol/L 3.5-5.1 [facility] Basophil percentage 102 mmol/L 98-107 [facility] Basophils (Bld) [#/Vol] 6.8 10*3/uL 4.4-11.0 [facility] Basophils (Bld) [#/Vol] 4.2 10*3/uL 2.0-7.7 [facility] Basophils/100 WBC (Bld) 0.4 % 0-1 [facility] Basophils/100 WBC (Bld) 61.6 % 47-70 [facility] Basophils/100 WBC (Bld) 1.9 % 0-5 [facility] Bilirubin [Mass/Vol] 0.80 mg/dL 0.20-1.00 [facility] [place] Comment on above: For patients on eltr ombopag therapy, use of Dimension Ruso TBIL is not recommended. Chloride [Moles/Vol] 102 mmol/L 98-107 [facility] [place] Eosinophils/100 WBC (Bld) 1.9 % 0-5 [facility] Glucose [Mass/Vol] 118 mg/dL 74-106 [facility] Comment on above: Fasting Glucose resu lt from 100 to 125 mg/dL suggests IMPAIRED HOMEOSTASIS per A.D.A. criteria. Neutrophils (Bld) [#/Vol] 4.2 10*3/uL 2.0-7.7 [facility] Neutrophils/100 WBC (Bld) 61.6 % 47-70 [facility] Potassium [Moles/Vol] 4.0 mmol/L 3.5-5.1 [facility] Protein [Mass/Vol] 7.5 g/dL 6.4-8.2 [facility] Sodium [Moles/Vol] 136 mmol/L 136-145 [facility] WBC (Bld) [#/Vol] 6.8 10*3/uL 4.4-11.0 [facility] Blood erythrocytes count (nu mber/volume)Ordered By: Marshall Bear on 08-21-2023 RBC (Bld) [#/Vol] 4.47 10*6/uL 4.6-6.2 [facility] Blood hemoglobin measurement (mass/volume)Ordered By: Marshall Bear on 08-21-2023 Hemoglobin (Bld) [Mass/Vol] 12.8 g/dL 13.0-16.5 [facility] Blood lymphocytes/100 leukoc ytesOrdered By: Marshall Bear on 08-21-2023 Lymphocytes/100 WBC (Bld) 27.5 % 19-41 [facility] Blood monocytes/100 leukocyt esOrdered By: Marshall Bear on 08-21-2023 Monocytes/100 WBC (Bld) 8.0 % 0-10 [facility] Blood platelet mean volumeOr dered By: Marshall Bear on 08-21-2023 Platelet mean volume (Bld) [Entitic vol] 8.2 fL 6.2-12.0 [facility] Determination of erythrocyte mean corpuscular volume (MCV)Ordered By: Marshall Bear on 08-21-2023 MCV (RBC) [Entitic vol] 89.9 fL 80-94 [facility] Hematocrit Auto (Bld) [Volum e fraction]Ordered By: Marshall Bear on 08-21-2023 Hematocrit (Bld) [Volume fraction] 40.2 % 40-54 [facility] Laboratory - Chemistry and C hemistry - challengeOrdered By: Marshall Bear on 08-21-2023 ALP [Catalytic activity/Vol] 117 U/L 45-117 [facility] ALT [Catalytic activity/Vol] 28 U/L 16-61 [facility] CO2 [Moles/Vol] 28.0 mmol/L 21.0-32.0 [facility] Globulin (S) [Mass/Vol] 4.0 g/dL 2.2-4.2 [facility] Magnesium [Mass/Vol] 1.9 mg/dL 1.6-2.6 [facility] [place] Urea nitrogen/Creatinine [Mass ratio] 19.7 mg/mg 10-20 [facility] Laboratory - Hematology and Cell countsOrdered By: Marshall Bear on 08-21-2023 Erythrocyte distribution width (RBC) [Entitic vol] 41.7 fL 35.1-43.9 [facility] Erythrocyte distribution width (RBC) [Ratio] 12.7 % 11.6-14.6 [facility] Immature granulocytes/100 WBC (Bld) 0.600 % 0.0-0.9 [facility] Comment on above: IG% - Immature Granu locytes (promyelocytes, myelocytes and metamyelocytes) > 1% indicates that a LEFT SHIFT is Present. MCH (RBC) [Entitic mass] 28.6 pg 27.0-32.0 [facility] Nucleated RBC/100 WBC (Bld) [Ratio] 0 % 0-5 [facility] MCHC Auto (RBC) [Mass/Vol]Or dered By: Marshall Bear on 08-21-2023 MCHC (RBC) [Mass/Vol] 31.8 g/dL 32-36 [facility] No Panel InformationOrdered By: Marshall Bear on 08-21-2023 Estimated GFR (MDRD) Amer 105 mL/min >60 [facility] Comment on above: GFR Calc Estimated GFR (MDRD) Non-Af Amer 87 mL/min >60 [facility] Comment on above: Non- GFR Calc Prostate Specific Antigen Total 1.95 ng/mL 0.0-4.0 [facility] Comment on above: This test was perfor med using the TPSA assay method [facility]. Values obtained with differentassay methods cannot be used interchangably.When changing PSA assays in the course of monitoring apatient, additional sequential testing should be carriedout to confirm baseline values. Thyroid Stimulating Hormone (TSH) 3.05 uIU/mL 0.358-3.74 [facility] Vitamin D 25-Hydroxy 42.4 ng/mL [facility] [place] Comment on above: Vitamin D 25(OH) Sta tus Range Deficiency <20 ng/mL (50nmol/L) Insufficiency 20 - 30 ng/mL (50 - 75 nmol/L) Sufficiency 30 - 100 ng/mL (75 - 250 nmol/L) Toxicity >100 ng/mL (>250 nmol/L) 28.6 pg 27.0-32.0 [facility] 12.7 % 11.6-14.6 [facility] 41.7 fl 35.1-43.9 [facility] 0.600 % 0.0-0.9 [facility] 0 % 0-5 [facility] 87 mL/min >60 [facility] 105 mL/min >60 [facility] 19.7 RATIO 10-20 [facility] 4.0 g/dL 2.2-4.2 [facility] 117 U/L 45-117 [facility] 28 U/L 16-61 [facility] 1.9 mg/dL 1.6-2.6 [facility] 28.0 mmol/L 21.0-32.0 [facility] 3.05 uIU/mL 0.358-3.74 [facility] 1.95 ng/mL 0.0-4.0 [facility] 42.4 ng/mL [facility] Platelets bldOrdered By: Kristen Bear on 08-21-2023 Platelets (Bld) [#/Vol] 320 10*3/uL 150-450 [facility] Serum or plasma albumin elver urement (mass/volume)Ordered By: Marshall Bear on 08-21-2023 Albumin [Mass/Vol] 3.5 g/dL 3.2-5.0 [facility] Serum or plasma albumin/glob ulin mass ratioOrdered By: Marshall Bear on 08-21-2023 Albumin/Globulin [Mass ratio] 0.9 {ratio} 0.9-2.4 [facility] Serum or plasma calcium elver urement (mass/volume)Ordered By: Marshall Bear on 08-21-2023 Calcium [Mass/Vol] 9.2 mg/dL 8.5-10.1 [facility] Serum or plasma creatinine m easurement (mass/volume)Ordered By: Marshall Bear on 08-21-2023 Creatinine [Mass/Vol] 0.91 mg/dL 0.70-1.30 [facility] Comment on above: The validity of the calculated GFR & GFRAA in patients over 70 years has not been determined. Clinical correlation is essential. Serum or plasma urea nitroge n measurement (mass/volume)Ordered By: Marshall Bear on 08-21-2023 Urea nitrogen [Mass/Vol] 18 mg/dL 7-18 [facility] Thin prep Papanicolaou smear with manual screeningOrdered By: Marshall Bear on 08-21-2023 Thin prep Papanicolaou smear with manual screening 16 U/L 15-37 [facility] Thin prep Papanicolaou smear with manual screening 6 5-15 [facility] Absolute lymphocyte countOrd ered By: Elvia Pineda on 08-14-2023 Lymphocytes Auto (Unsp spec) [#/Vol] 2.03 10*3/uL 0.83-4.51 [facility] Basophil percentageOrdered B y: Elvia Pineda on 08-14-2023 Basophil percentage 0 SEEN /hpf 0-5 [facility] [place] Basophil percentage 168 mg/dL 74-106 [facility] Basophil percentage 7.3 g/dL 6.4-8.2 [facility] Basophil percentage 1.50 mg/dL 0.20-1.00 [facility] Basophil percentage 136 mmol/L 136-145 [facility] Basophil percentage 3.9 mmol/L 3.5-5.1 [facility] Basophil percentage 102 mmol/L 98-107 [facility] Basophil percentage 2.3 mmol/L 0.4-2.0 [facility] Basophils (Bld) [#/Vol] 9.5 10*3/uL 4.4-11.0 [facility] Basophils (Bld) [#/Vol] 6.3 10*3/uL 2.0-7.7 [facility] Basophils/100 WBC (Bld) 0.3 % 0-1 [facility] Basophils/100 WBC (Bld) 67.0 % 47-70 [facility] Basophils/100 WBC (Bld) 3.6 % 0-5 [facility] Bilirubin [Mass/Vol] 1.50 mg/dL 0.20-1.00 [facility] [place] Comment on above: For patients on eltr ombopag therapy, use of Dimension Ruso TBIL is not recommended. Chloride [Moles/Vol] 102 mmol/L 98-107 [facility] [place] Eosinophils/100 WBC (Bld) 3.6 % 0-5 [facility] Glucose [Mass/Vol] 168 mg/dL 74-106 [facility] Comment on above: Fasting Glucose resu lt greater than or equal to 126 mg/dL suggests DIABETES MELLITUS per A.D.A. criteria. Lactate [Moles/Vol] 2.3 mmol/L 0.4-2.0 [facility] Comment on above: Critical Result(s) C alled at: 16:43:02 08/14/2023 by: Erica Eubanks to Thee Ramos. Results read back by same. Neutrophils (Bld) [#/Vol] 6.3 10*3/uL 2.0-7.7 [facility] Neutrophils/100 WBC (Bld) 67.0 % 47-70 [facility] Potassium [Moles/Vol] 3.9 mmol/L 3.5-5.1 [facility] Protein [Mass/Vol] 7.3 g/dL 6.4-8.2 [facility] Sodium [Moles/Vol] 136 mmol/L 136-145 [facility] WBC (Bld) [#/Vol] 9.5 10*3/uL 4.4-11.0 [facility] Bilirubin Test strip Ql (U)O rdered By: Elvia Pineda on 08-14-2023 Bilirubin Ql (U) Negative Negative [facility] Blood erythrocytes count (nu mber/volume)Ordered By: Elvia Pineda on 08-14-2023 RBC (Bld) [#/Vol] 4.64 10*6/uL 4.6-6.2 [facility] Blood hemoglobin measurement (mass/volume)Ordered By: Elvia Pineda on 08-14-2023 Hemoglobin (Bld) [Mass/Vol] 13.4 g/dL 13.0-16.5 [facility] Blood lymphocytes/100 leukoc ytesOrdered By: Elvia Pineda on 08-14-2023 Lymphocytes/100 WBC (Bld) 21.5 % 19-41 [facility] Blood monocytes/100 leukocyt esOrdered By: Elvia Pineda on 08-14-2023 Monocytes/100 WBC (Bld) 7.2 % 0-10 [facility] Blood platelet mean volumeOr dered By: Elvia Pineda on 08-14-2023 Platelet mean volume (Bld) [Entitic vol] 8.4 fL 6.2-12.0 [facility] Culture, urineOrdered By: Deepak Pineda on 08-14-2023 Bacteria identified Cx Nom (U) Culture exhibits no growth. [facility] Bacteria identified Cx Nom (U) Culture exhibits no growth. [facility] Determination of erythrocyte mean corpuscular volume (MCV)Ordered By: Elvia Pineda on 08-14-2023 MCV (RBC) [Entitic vol] 87.7 fL 80-94 [facility] Direct bilirubinOrdered By: Elvia Pineda on 08-14-2023 Bilirubin.direct [Mass/Vol] 0.31 mg/dL 0.00-0.30 [facility] Hematocrit Auto (Bld) [Volum e fraction]Ordered By: Elvia Pineda on 08-14-2023 Hematocrit (Bld) [Volume fraction] 40.7 % 40-54 [facility] INR in Blood by Coagulation assayOrdered By: Elvia Pineda on 08-14-2023 INR Coag (Bld) [Relative time] 0.9 {INR} [facility] Influenza virus A and B and SARS-CoV-2 (COVID-19) Ag panel - Upper respiratory specimOrdered By: Elvia Pineda on 08-14-2023 SARS-CoV-2 (COVID-19) RNA CHARLES+probe Ql (Resp) [facility] Ketones Test strip Ql (U)Ord ered By: Elvia Pineda on 08-14-2023 Ketones Ql (U) 5 mg/dl Negative [facility] Laboratory - Chemistry and C hemistry - challengeOrdered By: Elvia Pineda on 08-14-2023 ALP [Catalytic activity/Vol] 123 U/L 45-117 [facility] ALT [Catalytic activity/Vol] 30 U/L 16-61 [facility] CO2 [Moles/Vol] 28.0 mmol/L 21.0-32.0 [facility] Globulin (S) [Mass/Vol] 3.9 g/dL 2.2-4.2 [facility] Natriuretic peptide B (Bld) [Mass/Vol] 19.7 pg/mL 0-100 [facility] Urea nitrogen/Creatinine [Mass ratio] 19.7 mg/mg 10-20 [facility] Laboratory - CoagulationOrde red By: Elvia Pineda on 08-14-2023 aPTT Coag (Bld) [Time] 30.8 s 24.1-36.2 [facility] PT Coag (PPP) [Time] 12.4 s 11.7-14.9 [facility] Laboratory - Hematology and Cell countsOrdered By: Elvia Pineda on 08-14-2023 Erythrocyte distribution width (RBC) [Entitic vol] 41.3 fL 35.1-43.9 [facility] Erythrocyte distribution width (RBC) [Ratio] 13.0 % 11.6-14.6 [facility] Immature granulocytes/100 WBC (Bld) 0.400 % 0.0-0.9 [facility] Comment on above: IG% - Immature Granu locytes (promyelocytes, myelocytes and metamyelocytes) > 1% indicates that a LEFT SHIFT is Present. MCH (RBC) [Entitic mass] 28.9 pg 27.0-32.0 [facility] Nucleated RBC/100 WBC (Bld) [Ratio] 0 % 0-5 [facility] Laboratory - Microbiology an d Antimicrobial susceptibilityOrdered By: Elvia Pineda on 08-14-2023 Bacteria identified Cx Nom (Bld) No growth in 5 days. [facility] MCHC Auto (RBC) [Mass/Vol]Or dered By: Elvia Pineda on 08-14-2023 MCHC (RBC) [Mass/Vol] 32.9 g/dL 32-36 [facility] Mucus LM Ql (Urine sed)Order ed By: Elvia Pineda on 08-14-2023 Mucus Ql (Urine sed) 0 SEEN /hpf [facility] Nitrite Test strip Ql (U)Ord ered By: Elvia Pineda on 08-14-2023 Nitrite Ql (U) Negative Negative [facility] No Panel InformationOrdered By: Elvia Pineda on 08-14-2023 No growth in 5 days. [facility] D-Dimer Quantitative (PE/DVT) 0.84 FEU/ug/m 0.27-0.49 [facility] Comment on above: D-Dimer ELEVATED (>0 .49): Additional studies and clinicalassessments are indicated to conclude diagnosis of:Deep Vein Thrombosis (DVT) or Pulmonary Embolism (PE)CRITICAL VALUE VERIFIED. CALLED TO NAVEEN WILD08/14/23 1703 Starr Eubanks.RESULTS READ BACK BY SAME . Estimated Creatinine Clearance Calc 53.77 ml/min [facility] Estimated GFR (MDRD) Amer 69 mL/min >60 [facility] Comment on above: GFR Calc Estimated GFR (MDRD) Non-Af Amer 57 mL/min >60 [facility] Comment on above: Non- GFR Calc Troponin I High Sensitivity 7 pg/mL 3.0-78.0 [facility] Comment on above: Please Note: New [place]fa t Units and Gender Specific Reference Ranges. For more information see Policy Stat Procedure Ruso High Sensitivity Troponin (TNIH) and attachments. 28.9 pg 27.0-32.0 [facility] 13.0 % 11.6-14.6 [facility] 41.3 fl 35.1-43.9 [facility] 0.400 % 0.0-0.9 [facility] 0 % 0-5 [facility] 12.4 SECONDS 11.7-14.9 [facility] 30.8 Seconds 24.1-36.2 [facility] 0.84 FEU/ug/m 0.27-0.49 [facility] 57 mL/min >60 [facility] 69 mL/min >60 [facility] 53.77 ml/min [facility] 19.7 RATIO 10-20 [facility] 3.9 g/dL 2.2-4.2 [facility] 7 pg/mL 3.0-78.0 [facility] 123 U/L 45-117 [facility] 30 U/L 16-61 [facility] 28.0 mmol/L 21.0-32.0 [facility] 19.7 pg/mL 0-100 [facility] Platelets bldOrdered By: Kezia Pineda on 08-14-2023 Platelets (Bld) [#/Vol] 298 10*3/uL 150-450 [facility] Protein Test strip Ql (U)Ord ered By: Elvia Pineda on 08-14-2023 Protein Ql (U) Negative Negative [facility] Serum or plasma albumin elver urement (mass/volume)Ordered By: Elvia Pineda on 08-14-2023 Albumin [Mass/Vol] 3.4 g/dL 3.2-5.0 [facility] Serum or plasma calcium elver urement (mass/volume)Ordered By: Elvia Pineda on 08-14-2023 Calcium [Mass/Vol] 9.4 mg/dL 8.5-10.1 [facility] Serum or plasma creatinine m easurement (mass/volume)Ordered By: Elvia Pineda on 08-14-2023 Creatinine [Mass/Vol] 1.32 mg/dL 0.70-1.30 [facility] Comment on above: The validity of the calculated GFR & GFRAA in patients over 70 years has not been determined. Clinical correlation is essential. Serum or plasma urea nitroge n measurement (mass/volume)Ordered By: Elvia Pineda on 08-14-2023 Urea nitrogen [Mass/Vol] 26 mg/dL 7-18 [facility] Squamous epithelial cells de tection in urine sediment by light microscopyOrdered By: Elvia Pineda on 08-14-2023 Epithelial cells.squamous LM Ql (Urine sed) 0 SEEN /hpf 0-5 [facility] Thin prep Papanicolaou smear with manual screeningOrdered By: Elvia Pineda on 08-14-2023 Thin prep Papanicolaou smear with manual screening 17 U/L 15-37 [facility] Thin prep Papanicolaou smear with manual screening 6 5-15 [facility] Upper respiratory specimen i nfluenza A virus, influenza B virus, and severe acute resOrdered By: Elvia Pineda on 08-14-2023 Upper respiratory specimen influenza A virus, influenza B virus, and severe acute res [facility] Upper respiratory specimen influenza A virus, influenza B virus, and severe acute res [facility] Urine blood detectionOrdered By: Elvia Pineda on 08-14-2023 RBC Ql (U) Negative Negative [facility] RBC Ql (U) 0 SEEN /hpf 0-5 [facility] Urine clarityOrdered By: Kezia Pineda on 08-14-2023 Clarity (U) Sl. Cloudy Clear [facility] Urine color determinationOrd ered By: Elvia Pineda on 08-14-2023 Color (U) Yellow Yellow [facility] Urine glucose detectionOrder ed By: Elvia Pineda on 08-14-2023 Glucose Ql (U) Normal mg/dl Normal [facility] Urine leukocyte esterase det ection by dipstickOrdered By: Elvia Pineda on 08-14-2023 Leukocyte esterase Test strip Ql (U) Negative Negative [facility] Urine pHOrdered By: Elvia Pineda on 08-14-2023 pH (U) 7.0 [pH] 5.0 - 8.0 [facility] Urine sediment bacteria coun t by microscopy (number/high power field)Ordered By: Elvia Pineda on 08-14-2023 Bacteria LM.HPF (Urine sed) [#/Area] 0 /[HPF] None Seen [facility] Urine specific gravity measu rementOrdered By: Elvia Pineda on 08-14-2023 Specific gravity (U) [Rel density] 1.015 1.002-1.030 [facility] Urobilinogen Auto test strip Ql (U)Ordered By: Elvia Pineda on 08-14-2023 Urobilinogen Ql (U) 4 mg/dl Normal [facility] Absolute lymphocyte countOrd ered By: Elvia Pineda on 08-04-2023 Lymphocytes Auto (Unsp spec) [#/Vol] 3.14 10*3/uL 0.83-4.51 [facility] Basophil percentageOrdered B y: Elvia Pineda on 08-04-2023 Basophil percentage 0 SEEN /hpf 0-5 [facility] Basophil percentage 204 mg/dL 74-106 [facility] Basophil percentage 137 mmol/L 136-145 [facility] Basophil percentage 4.0 mmol/L 3.5-5.1 [facility] Basophil percentage 104 mmol/L 98-107 [facility] Basophils (Bld) [#/Vol] 11.9 10*3/uL 4.4-11.0 [facility] Basophils (Bld) [#/Vol] 7.6 10*3/uL 2.0-7.7 [facility] Basophils/100 WBC (Bld) 0.7 % 0-1 [facility] Basophils/100 WBC (Bld) 63.6 % 47-70 [facility] Basophils/100 WBC (Bld) 1.5 % 0-5 [facility] Chloride [Moles/Vol] 104 mmol/L 98-107 [facility] Eosinophils/100 WBC (Bld) 1.5 % 0-5 [facility] Glucose [Mass/Vol] 204 mg/dL 74-106 [facility] Comment on above: Glucose result great er than or equal to 200 mg/dLsuggests DIABETES MELLITUS per A.D.A. criteria. Neutrophils (Bld) [#/Vol] 7.6 10*3/uL 2.0-7.7 [facility] Neutrophils/100 WBC (Bld) 63.6 % 47-70 [facility] Potassium [Moles/Vol] 4.0 mmol/L 3.5-5.1 [facility] Sodium [Moles/Vol] 137 mmol/L 136-145 [facility] WBC (Bld) [#/Vol] 11.9 10*3/uL 4.4-11.0 [facility] Bilirubin Test strip Ql (U)O rdered By: Elvia Pineda on 08-04-2023 Bilirubin Ql (U) Negative Negative [facility] Blood erythrocytes count (nu mber/volume)Ordered By: Elvia Pineda on 08-04-2023 RBC (Bld) [#/Vol] 4.80 10*6/uL 4.6-6.2 [facility] Blood hemoglobin measurement (mass/volume)Ordered By: Elvia Pineda on 08-04-2023 Hemoglobin (Bld) [Mass/Vol] 13.8 g/dL 13.0-16.5 [facility] Blood lymphocytes/100 leukoc ytesOrdered By: Elvia Pineda on 08-04-2023 Lymphocytes/100 WBC (Bld) 26.4 % 19-41 [facility] Blood monocytes/100 leukocyt esOrdered By: Elvia Pineda on 08-04-2023 Monocytes/100 WBC (Bld) 7.1 % 0-10 [facility] Blood platelet mean volumeOr dered By: Elvia Pineda on 08-04-2023 Platelet mean volume (Bld) [Entitic vol] 8.2 fL 6.2-12.0 [facility] Determination of erythrocyte mean corpuscular volume (MCV)Ordered By: Elvia Pineda on 08-04-2023 MCV (RBC) [Entitic vol] 89.0 fL 80-94 [facility] Erythrocyte sedimentation ra teOrdered By: Elvia Pineda on 08-04-2023 ESR (Bld) [Velocity] 20 mm/h 0-20 [facility] Hematocrit Auto (Bld) [Volum e fraction]Ordered By: Elvia Pineda on 08-04-2023 Hematocrit (Bld) [Volume fraction] 42.7 % 40-54 [facility] Ketones Test strip Ql (U)Ord ered By: Elvia Pineda on 08-04-2023 Ketones Ql (U) Negative Negative [facility] Laboratory - Chemistry and C hemistry - challengeOrdered By: Elvia Pineda on 08-04-2023 CO2 [Moles/Vol] 29.0 mmol/L 21.0-32.0 [facility] Urea nitrogen/Creatinine [Mass ratio] 24.7 mg/mg 10-20 [facility] Laboratory - Hematology and Cell countsOrdered By: Elvia Pineda on 08-04-2023 Erythrocyte distribution width (RBC) [Entitic vol] 42.5 fL 35.1-43.9 [facility] Erythrocyte distribution width (RBC) [Ratio] 12.9 % 11.6-14.6 [facility] Immature granulocytes/100 WBC (Bld) 0.700 % 0.0-0.9 [facility] Comment on above: IG% - Immature Granu locytes (promyelocytes, myelocytes and metamyelocytes) > 1% indicates that a LEFT SHIFT is Present. MCH (RBC) [Entitic mass] 28.8 pg 27.0-32.0 [facility] Nucleated RBC/100 WBC (Bld) [Ratio] 0 % 0-5 [facility] MCHC Auto (RBC) [Mass/Vol]Or dered By: Elvia Pineda on 08-04-2023 MCHC (RBC) [Mass/Vol] 32.3 g/dL 32-36 [facility] Mucus LM Ql (Urine sed)Order ed By: Elvia Pineda on 08-04-2023 Mucus Ql (Urine sed) 0 SEEN /hpf [facility] Nitrite Test strip Ql (U)Ord ered By: Elvia Pineda on 08-04-2023 Nitrite Ql (U) Negative Negative [facility] No Panel InformationOrdered By: Elvia Pineda on 08-04-2023 Estimated Creatinine Clearance Calc 73.17 ml/min [facility] Estimated GFR (MDRD) Amer 98 mL/min >60 [facility] Comment on above: GFR Calc Estimated GFR (MDRD) Non-Af Amer 81 mL/min >60 [facility] Comment on above: Non- GFR Calc 28.8 pg 27.0-32.0 [facility] 12.9 % 11.6-14.6 [facility] 42.5 fl 35.1-43.9 [facility] 0.700 % 0.0-0.9 [facility] 0 % 0-5 [facility] 81 mL/min >60 [facility] 98 mL/min >60 [facility] 73.17 ml/min [facility] 24.7 RATIO 10-20 [facility] 29.0 mmol/L 21.0-32.0 [facility] Platelets bldOrdered By: Kezia Pineda on 08-04-2023 Platelets (Bld) [#/Vol] 356 10*3/uL 150-450 [facility] Protein Test strip Ql (U)Ord ered By: Elvia Pineda on 08-04-2023 Protein Ql (U) Negative Negative [facility] Serum or plasma C reactive p rotein measurement (mass/volume)Ordered By: Elvia Pineda on 08-04-2023 CRP [Mass/Vol] 19.00 mg/L 0.0-3.0 [facility] Comment on above: C-Reactive Protein ( CRP) provides useful information for thediagnosis, therapy and monitoring of inflammatory processesand associated diseases. For the evaluation of Relative Riskfor Cardiovascular Disease, a High Sensitivity CRP (HSCRP)should be ordered. Serum or plasma calcium elver urement (mass/volume)Ordered By: Elvia Pineda on 08-04-2023 Calcium [Mass/Vol] 9.8 mg/dL 8.5-10.1 [facility] Serum or plasma creatinine m easurement (mass/volume)Ordered By: Elvia Pineda on 08-04-2023 Creatinine [Mass/Vol] 0.97 mg/dL 0.70-1.30 [facility] Comment on above: The validity of the calculated GFR & GFRAA in patients over 70 years has not been determined. Clinical correlation is essential. Serum or plasma urea nitroge n measurement (mass/volume)Ordered By: Elvia Pineda on 08-04-2023 Urea nitrogen [Mass/Vol] 24 mg/dL 7-18 [facility] Squamous epithelial cells de tection in urine sediment by light microscopyOrdered By: Elvia Pineda on 08-04-2023 Epithelial cells.squamous LM Ql (Urine sed) 0 SEEN /hpf 0-5 [facility] Thin prep Papanicolaou smear with manual screeningOrdered By: Elvia Pineda on 08-04-2023 Thin prep Papanicolaou smear with manual screening 4 5-15 [facility] Urine blood detectionOrdered By: Elvia Pienda on 08-04-2023 RBC Ql (U) Negative Negative [facility] RBC Ql (U) 0 SEEN /hpf 0-5 [facility] Urine clarityOrdered By: Kezia Pineda on 08-04-2023 Clarity (U) Clear Clear [facility] Urine color determinationOrd ered By: Elvia Pineda on 08-04-2023 Color (U) Yellow Yellow [facility] Urine glucose detectionOrder ed By: Elvia Pineda on 08-04-2023 Glucose Ql (U) 100 mg/dl Normal [facility] Urine leukocyte esterase det ection by dipstickOrdered By: Elvia Pineda on 08-04-2023 Leukocyte esterase Test strip Ql (U) Negative Negative [facility] Urine pHOrdered By: Elvia Pineda on 08-04-2023 pH (U) 6.0 [pH] 5.0 - 8.0 [facility] Urine sediment bacteria coun t by microscopy (number/high power field)Ordered By: Elvia Pineda on 08-04-2023 Bacteria LM.HPF (Urine sed) [#/Area] 0 /[HPF] None Seen [facility] Urine specific gravity measu rementOrdered By: Elvia Pineda on 08-04-2023 Specific gravity (U) [Rel density] 1.010 1.002-1.030 [facility] Urobilinogen Auto test strip Ql (U)Ordered By: Elvia Pineda on 08-04-2023 Urobilinogen Ql (U) 1 mg/dl Normal [facility] Glucose Glucometer (BldC) [M ass/Vol]Ordered By: Ventura Godoy on 07-20-2023 Glucose [Mass/Vol] 134 mg/dL 74-106 [facility] Comment on above: MANAGEMENT OF PATIEN T CARE PER NURSING PROTOCOL Glucose [Mass/Vol] 129 mg/dL 74-106 [facility] Comment on above: MANAGEMENT OF PATIEN T CARE PER NURSING PROTOCOL Absolute lymphocyte countOrd ered By: Dimas Clinton on 07-19-2023 Lymphocytes Auto (Unsp spec) [#/Vol] 1.51 10*3/uL 0.83-4.51 [facility] Basophil percentageOrdered B y: Dimas Clinton on 07-19-2023 Basophil percentage 170 mg/dL 74-106 [facility] Basophil percentage 141 mmol/L 136-145 [facility] Basophil percentage 3.8 mmol/L 3.5-5.1 [facility] Basophil percentage 108 mmol/L 98-107 [facility] Basophils (Bld) [#/Vol] 11.1 10*3/uL 4.4-11.0 [facility] Basophils (Bld) [#/Vol] 8.6 10*3/uL 2.0-7.7 [facility] Basophils/100 WBC (Bld) 0.2 % 0-1 [facility] Basophils/100 WBC (Bld) 77.7 % 47-70 [facility] Basophils/100 WBC (Bld) 0.1 % 0-5 [facility] Chloride [Moles/Vol] 108 mmol/L 98-107 [facility] Eosinophils/100 WBC (Bld) 0.1 % 0-5 [facility] Glucose [Mass/Vol] 170 mg/dL 74-106 [facility] Comment on above: Fasting Glucose resu lt greater than or equal to 126 mg/dL suggests DIABETES MELLITUS per A.D.A. criteria. Neutrophils (Bld) [#/Vol] 8.6 10*3/uL 2.0-7.7 [facility] Neutrophils/100 WBC (Bld) 77.7 % 47-70 [facility] Potassium [Moles/Vol] 3.8 mmol/L 3.5-5.1 [facility] Sodium [Moles/Vol] 141 mmol/L 136-145 [facility] WBC (Bld) [#/Vol] 11.1 10*3/uL 4.4-11.0 [facility] Blood erythrocytes count (nu mber/volume)Ordered By: Dimas Clinton on 07-19-2023 RBC (Bld) [#/Vol] 4.32 10*6/uL 4.6-6.2 [facility] Blood hemoglobin measurement (mass/volume)Ordered By: Dimas Clinton on 07-19-2023 Hemoglobin (Bld) [Mass/Vol] 12.7 g/dL 13.0-16.5 [facility] Blood lymphocytes/100 leukoc ytesOrdered By: Dimas Clinton on 07-19-2023 Lymphocytes/100 WBC (Bld) 13.6 % 19-41 [facility] Blood monocytes/100 leukocyt esOrdered By: Dimas Clinton on 07-19-2023 Monocytes/100 WBC (Bld) 7.9 % 0-10 [facility] Blood platelet mean volumeOr dered By: Dimas Clinton on 07-19-2023 Platelet mean volume (Bld) [Entitic vol] 8.8 fL 6.2-12.0 [facility] Determination of erythrocyte mean corpuscular volume (MCV)Ordered By: Dimas Clinton on 07-19-2023 MCV (RBC) [Entitic vol] 89.6 fL 80-94 [facility] Hematocrit Auto (Bld) [Volum e fraction]Ordered By: Dimas Clinton on 07-19-2023 Hematocrit (Bld) [Volume fraction] 38.7 % 40-54 [facility] - Chemistry and C hemistry - challengeOrdered By: Dimas Clinton on 07-19-2023 CO2 [Moles/Vol] 28.0 mmol/L 21.0-32.0 [facility] Urea nitrogen/Creatinine [Mass ratio] 21.6 mg/mg 10-20 [facility] - Hematology and Cell countsOrdered By: Dimas Clinton on 07-19-2023 Erythrocyte distribution width (RBC) [Entitic vol] 43.0 fL 35.1-43.9 [facility] Erythrocyte distribution width (RBC) [Ratio] 13.2 % 11.6-14.6 [facility] Immature granulocytes/100 WBC (Bld) 0.500 % 0.0-0.9 [facility] Comment on above: IG% - Immature Granu locytes (promyelocytes, myelocytes and metamyelocytes) > 1% indicates that a LEFT SHIFT is Present. MCH (RBC) [Entitic mass] 29.4 pg 27.0-32.0 [facility] Nucleated RBC/100 WBC (Bld) [Ratio] 0 % 0-5 [facility] MCHC Auto (RBC) [Mass/Vol]Or dered By: Dimas Clinton on 07-19-2023 MCHC (RBC) [Mass/Vol] 32.8 g/dL 32-36 [facility] No Panel InformationOrdered By: Dimas Clinton on 07-19-2023 Estimated Creatinine Clearance Calc 76.31 ml/min [facility] Estimated GFR (MDRD) Amer 104 mL/min >60 [facility] Comment on above: GFR Calc Estimated GFR (MDRD) Non-Af Amer 86 mL/min >60 [facility] Comment on above: Non- GFR Calc 29.4 pg 27.0-32.0 [facility] 13.2 % 11.6-14.6 [facility] 43.0 fl 35.1-43.9 [facility] 0.500 % 0.0-0.9 [facility] 0 % 0-5 [facility] 86 mL/min >60 [facility] 104 mL/min >60 [facility] 76.31 ml/min [facility] 21.6 RATIO 10-20 [facility] 28.0 mmol/L 21.0-32.0 [facility] Platelets bldOrdered By: Shadi Clinton on 07-19-2023 Platelets (Bld) [#/Vol] 237 10*3/uL 150-450 [facility] Serum or plasma calcium elver urement (mass/volume)Ordered By: Dimas Clinton on 07-19-2023 Calcium [Mass/Vol] 8.8 mg/dL 8.5-10.1 [facility] Serum or plasma creatinine m easurement (mass/volume)Ordered By: Dimas Clinton on 07-19-2023 Creatinine [Mass/Vol] 0.93 mg/dL 0.70-1.30 [facility] Comment on above: The validity of the calculated GFR & GFRAA in patients over 70 years has not been determined. Clinical correlation is essential. Serum or plasma urea nitroge n measurement (mass/volume)Ordered By: Dimas Clinton on 07-19-2023 Urea nitrogen [Mass/Vol] 20 mg/dL 7-18 [facility] Thin prep Papanicolaou smear with manual screeningOrdered By: Dimas Clinton on 07-19-2023 Thin prep Papanicolaou smear with manual screening 5 5-15 [facility] HIV 1 and HIV-2 antibody ass ay with HIV-1 p24 antigen detectionOrdered By: Ventura Godoy on 07-05-2023 HIV 1+2 Ab+HIV1 p24 Ag IA Ql Non-Reactive Nonreactive [facility] - Chemistry and C hemistry - challengeOrdered By: Vin Orellana on 07-05-2023 Magnesium [Mass/Vol] 2.1 mg/dL 1.6-2.6 [facility] No Panel InformationOrdered By: Ventura Godoy on 07-05-2023 Hepatitis A Antibody Total Negative Negative [facility] Comment on above: Comment: The HAV tot [...] HAVtotal antibody results to IgM (e.g., panel #[id number] HAVAntibody w/ Rfx).Performed at: [facility] [id number] Director: Jerald Wakefield PhD, Phone: [phone] Hepatitis C Antibody Non-Reactive Nonreactive [facility] Comment on above: Non Reactive: < 0.8 Equivocal: >/= 0.8 to < 1.0 Reactive: >/= 1.0The CDC recommends that a reactive/equivocal HCV antibody result be followed up by the HCV Nucleic Acid Amplificationtest (989748) Nasal Screen MRSA/MSSA [facility] Negative Negative [facility] Non-Reactive Nonreactive [facility] No Panel InformationOrdered By: Vin Orellana on 07-05-2023 2.1 mg/dL 1.6-2.6 [facility] Serum hepatitis B virus surf selina antibody IgG detectionOrdered By: Ventura Godoy on 07-05-2023 HBV surface IgG Ql (S) Non-Reactive [facility] Comment on above: Non Reactive: Incons istent with immunity less than <10 mIU/mL Reactive: Consistent with immunity greater than or equal to 10 mIU/mL Whole blood hemoglobin A1c/t otal hemoglobin ratio (mass fraction)Ordered By: Vin Orellana on 07-05-2023 HbA1c (Bld) [Mass fraction] 6.7 % 3.8-5.6 [facility] Comment on above: Normal < 5.7 % Predi abetic 5.7 - 6.4 % Diabetic >or= 6.5 % Please note range changes. Culture, urineOrdered By: Paulo Lema on 05-20-2023 Bacteria identified Cx Nom (U) Culture exhibits no growth. [facility] Basophil percentageOrdered B y: Marshall Bear on 05-19-2023 Basophil percentage 0 SEEN /hpf 0-5 [facility] Bilirubin Test strip Ql (U)O rdered By: Marshall Bear on 05-19-2023 Bilirubin Ql (U) Negative Negative [facility] Culture, urineOrdered By: Paulo Lema on 05-19-2023 Bacteria identified Cx Nom (U) Culture exhibits no growth. [facility] Ketones Test strip Ql (U)Ord ered By: Marshall Bear on 05-19-2023 Ketones Ql (U) 5 mg/dl Negative [facility] - Chemistry and C hemistry - challengeon 05-19-2023 Bilirubin Ql (U) Negative [facility] Glucose Ql (U) Negative [facility] Ketones Ql (U) Trace (5) [facility] pH (U) 6.5 [pH] [facility] Specific gravity (U) [Rel density] 1.010 [facility] Urobilinogen (U) [Mass/Vol] 0.6219061 mg/dL [facility] - Hematology and Cell countson 05-19-2023 Hemoglobin Ql (U) Negative [facility] - Specimen inform ationon 05-19-2023 Clarity (U) Cloudy [facility] Color (U) ORANGE [facility] - Urinalysison Nitrite Ql (U) Negative [facility] Protein Ql (U) Negative [facility] Mucus LM Ql (Urine sed)Order ed By: Marshall Bear on 05-19-2023 Mucus Ql (Urine sed) 0 SEEN /hpf [facility] Nitrite Test strip Ql (U)Ord ered By: Marshall Bear on 05-19-2023 Nitrite Ql (U) Negative Negative [facility] No Panel Informationon 05-19 Urine Leukocytes Positive [facility] Urine Non-Hemolyzed Blood Negative [facility] Protein Test strip Ql (U)Ord ered By: Marshall Bear on 05-19-2023 Protein Ql (U) Negative Negative [facility] Squamous epithelial cells de tection in urine sediment by light microscopyOrdered By: Marshall Bear on 05-19-2023 Epithelial cells.squamous LM Ql (Urine sed) 0 SEEN /hpf 0-5 [facility] Urine blood detectionOrdered By: Marshall Bear on 05-19-2023 RBC Ql (U) Negative Negative [facility] RBC Ql (U) 0 SEEN /hpf 0-5 [facility] Urine clarityOrdered By: Kristen Bear on 05-19-2023 Clarity (U) Clear Clear [facility] Urine color determinationOrd ered By: Marshall Bear on 05-19-2023 Color (U) Yellow Yellow [facility] Urine glucose detectionOrder ed By: Marshall Bear on 05-19-2023 Glucose Ql (U) Normal mg/dl Normal [facility] Urine leukocyte esterase det ection by dipstickOrdered By: Marshall Bear on 05-19-2023 Leukocyte esterase Test strip Ql (U) Negative Negative [facility] Urine pHOrdered By: Marshall villalba on 05-19-2023 pH (U) 7.0 [pH] 5.0 - 8.0 [facility] Urine sediment bacteria coun t by microscopy (number/high power field)Ordered By: Marshall Bear on 05-19-2023 Bacteria LM.HPF (Urine sed) [#/Area] 0 /[HPF] None Seen [facility] Urine specific gravity measu rementOrdered By: Marshall Bear on 05-19-2023 Specific gravity (U) [Rel density] 1.010 1.002-1.030 [facility] Urobilinogen Auto test strip Ql (U)Ordered By: Marshall Bear on 05-19-2023 Urobilinogen Ql (U) Normal mg/dl Normal [facility] Glucose Glucometer (BldC) [M ass/Vol]Ordered By: Julio Garcia on 05-15-2023 Glucose [Mass/Vol] 165 mg/dL 74-106 [facility] Comment on above: MANAGEMENT OF PATIEN T CARE PER NURSING PROTOCOL Absolute lymphocyte countOrd ered By: Ryan Vásquez on 05-11-2023 Lymphocytes Auto (Unsp spec) [#/Vol] 2.23 10*3/uL 0.83-4.51 [facility] Basophil percentageOrdered B y: Ryan Vásquez on 05-11-2023 Basophil percentage 0 SEEN /hpf 0-5 [facility] Basophils/100 WBC (Bld) 0.8 % 0-1 [facility] Chloride [Moles/Vol] 101 mmol/L 98-107 [facility] Eosinophils/100 WBC (Bld) 2.0 % 0-5 [facility] Glucose [Mass/Vol] 120 mg/dL 74-106 [facility] Comment on above: Fasting Glucose resu lt from 100 to 125 mg/dL suggests IMPAIRED HOMEOSTASIS per A.D.A. criteria. Neutrophils (Bld) [#/Vol] 5.6 10*3/uL 2.0-7.7 [facility] Neutrophils/100 WBC (Bld) 61.9 % 47-70 [facility] Potassium [Moles/Vol] 3.8 mmol/L 3.5-5.1 [facility] Sodium [Moles/Vol] 135 mmol/L 136-145 [facility] WBC (Bld) [#/Vol] 9.1 10*3/uL 4.4-11.0 [facility] Bilirubin Test strip Ql (U)O rdered By: Ryan Vásquez on 05-11-2023 Bilirubin Ql (U) Negative Negative [facility] Blood erythrocytes count (nu mber/volume)Ordered By: Ryan Vásquez on 05-11-2023 RBC (Bld) [#/Vol] 5.29 10*6/uL 4.6-6.2 [facility] Blood hemoglobin measurement (mass/volume)Ordered By: Ryan Vásquez on 05-11-2023 Hemoglobin (Bld) [Mass/Vol] 15.3 g/dL 13.0-16.5 [facility] Blood lymphocytes/100 leukoc ytesOrdered By: Ryan Vásquez on 05-11-2023 Lymphocytes/100 WBC (Bld) 24.6 % 19-41 [facility] Blood monocytes/100 leukocyt esOrdered By: Ryan Vásquez on 05-11-2023 Monocytes/100 WBC (Bld) 10.4 % 0-10 [facility] Blood platelet mean volumeOr dered By: Ryan Vásquez on 05-11-2023 Platelet mean volume (Bld) [Entitic vol] 8.6 fL 6.2-12.0 [facility] Determination of erythrocyte mean corpuscular volume (MCV)Ordered By: Ryan Vásquez on 05-11-2023 MCV (RBC) [Entitic vol] 88.5 fL 80-94 [facility] Hematocrit Auto (Bld) [Volum e fraction]Ordered By: Ryan Vásquez on 05-11-2023 Hematocrit (Bld) [Volume fraction] 46.8 % 40-54 [facility] Ketones Test strip Ql (U)Ord ered By: Ryan Vásquez on 05-11-2023 Ketones Ql (U) Negative Negative [facility] - Chemistry and C hemistry - challengeOrdered By: Ryan Vásquez on 05-11-2023 CO2 [Moles/Vol] 31.0 mmol/L 21.0-32.0 [facility] Urea nitrogen/Creatinine [Mass ratio] 17.7 mg/mg 10-20 [facility] - Hematology and Cell countsOrdered By: Ryan Vásquez on 05-11-2023 Erythrocyte distribution width (RBC) [Entitic vol] 40.3 fL 35.1-43.9 [facility] Erythrocyte distribution width (RBC) [Ratio] 12.4 % 11.6-14.6 [facility] Immature granulocytes/100 WBC (Bld) 0.300 % 0.0-0.9 [facility] Comment on above: IG% - Immature Granu locytes (promyelocytes, myelocytes and metamyelocytes) > 1% indicates that a LEFT SHIFT is Present. MCH (RBC) [Entitic mass] 28.9 pg 27.0-32.0 [facility] Nucleated RBC/100 WBC (Bld) [Ratio] 0 % 0-5 [facility] MCHC Auto (RBC) [Mass/Vol]Or dered By: Ryan Vásquez on 05-11-2023 MCHC (RBC) [Mass/Vol] 32.7 g/dL 32-36 [facility] Mucus LM Ql (Urine sed)Order ed By: Ryan Vásquez on 05-11-2023 Mucus Ql (Urine sed) 0 SEEN /hpf [facility] Nitrite Test strip Ql (U)Ord ered By: Ryan Vásquez on 05-11-2023 Nitrite Ql (U) Negative Negative [facility] No Panel InformationOrdered By: Ryan Vásquez on 05-11-2023 Estimated Creatinine Clearance Calc 62.81 ml/min [facility] Estimated GFR (MDRD) Amer 83 mL/min >60 [facility] Comment on above: GFR Calc Estimated GFR (MDRD) Non-Af Amer 68 mL/min >60 [facility] Comment on above: Non- GFR Calc Platelets bldOrdered By: Yuan Vásquez on 05-11-2023 Platelets (Bld) [#/Vol] 286 10*3/uL 150-450 [facility] Protein Test strip Ql (U)Ord ered By: Ryan Vásquez on 05-11-2023 Protein Ql (U) Negative Negative [facility] Serum or plasma calcium elver urement (mass/volume)Ordered By: Ryan Vásquez on 05-11-2023 Calcium [Mass/Vol] 9.2 mg/dL 8.5-10.1 [facility] Serum or plasma creatinine m easurement (mass/volume)Ordered By: Ryan Vásquez on 05-11-2023 Creatinine [Mass/Vol] 1.13 mg/dL 0.70-1.30 [facility] Comment on above: The validity of the calculated GFR & GFRAA in patients over 70 years has not been determined. Clinical correlation is essential. Serum or plasma urea nitroge n measurement (mass/volume)Ordered By: Ryan Vásquez on 05-11-2023 Urea nitrogen [Mass/Vol] 20 mg/dL 7-18 [facility] Squamous epithelial cells de tection in urine sediment by light microscopyOrdered By: Ryan Vásquez on 05-11-2023 Epithelial cells.squamous LM Ql (Urine sed) 0 SEEN /hpf 0-5 [facility] Thin prep Papanicolaou smear with manual screeningOrdered By: Ryan Vásquez on 05-11-2023 Thin prep Papanicolaou smear with manual screening 3 5-15 [facility] Urine blood detectionOrdered By: Ryan Vásquez on 05-11-2023 RBC Ql (U) Negative Negative [facility] RBC Ql (U) 0 SEEN /hpf 0-5 [facility] Urine clarityOrdered By: Yuan Vásquez on 05-11-2023 Clarity (U) Sl. Cloudy Clear [facility] Urine color determinationOrd ered By: Ryan Vásquez on 05-11-2023 Color (U) Yellow Yellow [facility] Urine glucose detectionOrder ed By: Ryan Vásquez on 05-11-2023 Glucose Ql (U) Normal mg/dl Normal [facility] Urine leukocyte esterase det ection by dipstickOrdered By: Ryan Vásquez on 05-11-2023 Leukocyte esterase Test strip Ql (U) Negative Negative [facility] Urine pHOrdered By: Ryan ornelas on 05-11-2023 pH (U) 6.0 [pH] 5.0 - 8.0 [facility] Urine sediment bacteria coun t by microscopy (number/high power field)Ordered By: Ryan Vásquez on 05-11-2023 Bacteria LM.HPF (Urine sed) [#/Area] 0 /[HPF] None Seen [facility] Urine specific gravity measu rementOrdered By: Ryan Vásquez on 05-11-2023 Specific gravity (U) [Rel density] 1.005 1.002-1.030 [facility] Urobilinogen Auto test strip Ql (U)Ordered By: Ryan Vásquez on 05-11-2023 Urobilinogen Ql (U) Normal mg/dl Normal [facility] Basophil percentageOrdered B y: Reyna Mckeon on 03-21-2023 Creatinine [Mass/Vol] 1.0 mg/dL 0.70-1.30 [facility] No Panel InformationOrdered By: Reyna Mckeon on 03-21-2023 Bedside Estimated GFR (eGFR) > 60.0000 mL/min >60 [facility] CNOVon 11-18-2022 CNOV Office Visit ([facility] ) -- JARET BATES ([id number]) 1955 M NFR Date Time Provider Department [...] - CHOLECYSTECTOMY NAME: Jaret Bates CLINIC NO.: [id number] DATE OF SERVICE: 11/18/2022 : 1955 REFERRING [...] to your office visit today with the [facility]geons. INSTRUCTIONS FOLLOWING YOU R (more content not included)... Normal [facility] Absolute lymphocyte countOrd ered By: Dr. Pineda on 11-14-2022 Lymphocytes Auto (Unsp spec) [#/Vol] 2.56 10*3/uL 0.83-4.51 [facility] Basophil percentageOrdered B y: Dr. Pineda on 11-14-2022 Basophil percentage 0 SEEN /hpf 0-5 [facility] Basophils/100 WBC (Bld) 0.6 % 0-1 [facility] Bilirubin [Mass/Vol] 1.60 mg/dL 0.20-1.00 [facility] Comment on above: For patients on eltr ombopag therapy, use of Dimension Ruso TBIL is not recommended. Chloride [Moles/Vol] 99 mmol/L 98-107 [facility] Eosinophils/100 WBC (Bld) 1.8 % 0-5 [facility] Glucose [Mass/Vol] 118 mg/dL 74-106 [facility] Comment on above: Fasting Glucose resu lt from 100 to 125 mg/dL suggests IMPAIRED HOMEOSTASIS per A.D.A. criteria. Neutrophils (Bld) [#/Vol] 8.6 10*3/uL 2.0-7.7 [facility] Neutrophils/100 WBC (Bld) 69.2 % 47-70 [facility] Potassium [Moles/Vol] 3.4 mmol/L 3.5-5.1 [facility] Protein [Mass/Vol] 8.7 g/dL 6.4-8.2 [facility] Sodium [Moles/Vol] 137 mmol/L 136-145 [facility] WBC (Bld) [#/Vol] 12.4 10*3/uL 4.4-11.0 [facility] Bilirubin Test strip Ql (U)O rdered By: Dr. Pineda on 11-14-2022 Bilirubin Ql (U) Negative Negative [facility] Blood erythrocytes count (nu mber/volume)Ordered By: Dr. Pineda on 11-14-2022 RBC (Bld) [#/Vol] 5.44 10*6/uL 4.6-6.2 [facility] Blood hemoglobin measurement (mass/volume)Ordered By: Dr. Pienda on 11-14-2022 Hemoglobin (Bld) [Mass/Vol] 16.0 g/dL 13.0-16.5 [facility] Blood lymphocytes/100 leukoc ytesOrdered By: Dr. Pineda on 11-14-2022 Lymphocytes/100 WBC (Bld) 20.7 % 19-41 [facility] Blood monocytes/100 leukocyt esOrdered By: Dr. Pineda on 11-14-2022 Monocytes/100 WBC (Bld) 7.3 % 0-10 [facility] Blood platelet mean volumeOr dered By: Dr. Pineda on 11-14-2022 Platelet mean volume (Bld) [Entitic vol] 8.5 fL 6.2-12.0 [facility] CNPNon 11-14-2022 CNPN Telephone ([employer]) -- JARET BATES Jing ([id number]) 1955 M NFR Date Time Provider Department [...] of the pain. They use [facility] in [place]. Alethea also wanted us to know that they tried reaching out, over the weekend to the provider number that is on their discharge paperwork, but that number is to [facility] and the corn cutter operator refused to page Dr. Pena, stating that he does not work at their facility. I apologized to Alethea, stating that I would reach out and see who can update that paperwork and correct that error. MATIAS Winters LPN 11/14/2022 10:36 AM Signed Patient called back, patient is yelling in pain, advised patient to go to ER. Alethea asked if [facility] would treat patient, informed them yes they will however Dr Pena is not at that hospital and is doing surgeries in [place] today. voiced understanding. Alethea # [phone] Edilia Hunter PA-C 11/14/2022 10:39 AM Signed Yes, agree with urgent ED evaluation for severe abdominal pain Dayron Orozco LPN 11/14/2022 10:46 AM Signed Called patient back to updated. Alethea stated that she called 911 and ambulance was there. Carol Vega RN 11/14/2022 4:34 PM Signed Patient was evaluated at [facility] ER, CT scan of the abdomen and [...] cholecystitis w* (more content not included)... Normal [facility] Determination of erythrocyte mean corpuscular volume (MCV)Ordered By: Dr. Pineda on 11-14-2022 MCV (RBC) [Entitic vol] 89.2 fL 80-94 [facility] Direct bilirubinOrdered By: Dr. Pineda on 11-14-2022 Bilirubin.direct [Mass/Vol] 0.32 mg/dL 0.00-0.30 [facility] Hematocrit Auto (Bld) [Volum e fraction]Ordered By: Dr. Pineda on 11-14-2022 Hematocrit (Bld) [Volume fraction] 48.5 % 40-54 [facility] Ketones Test strip Ql (U)Ord ered By: Dr. Pineda on 11-14-2022 Ketones Ql (U) Negative Negative [facility] Laboratory - Chemistry and C hemistry - challengeOrdered By: Dr. Pineda on 11-14-2022 ALP [Catalytic activity/Vol] 134 U/L 45-117 [facility] ALT [Catalytic activity/Vol] 32 U/L 16-61 [facility] CO2 [Moles/Vol] 33.0 mmol/L 21.0-32.0 [facility] Globulin (S) [Mass/Vol] 4.2 g/dL 2.2-4.2 [facility] Lipase [Catalytic activity/Vol] 101 U/L 73-393 [facility] Urea nitrogen/Creatinine [Mass ratio] 16.8 mg/mg 10-20 [facility] - Hematology and Cell countsOrdered By: Dr. Pineda on 11-14-2022 Erythrocyte distribution width (RBC) [Entitic vol] 40.8 fL 35.1-43.9 [facility] Erythrocyte distribution width (RBC) [Ratio] 12.5 % 11.6-14.6 [facility] Immature granulocytes/100 WBC (Bld) 0.400 % 0.0-0.9 [facility] Comment on above: IG% - Immature Granu locytes (promyelocytes, myelocytes and metamyelocytes) > 1% indicates that a LEFT SHIFT is Present. MCH (RBC) [Entitic mass] 29.4 pg 27.0-32.0 [facility] Nucleated RBC/100 WBC (Bld) [Ratio] 0 % 0-5 [facility] MCHC Auto (RBC) [Mass/Vol]Or dered By: Dr. Pineda on 11-14-2022 MCHC (RBC) [Mass/Vol] 33.0 g/dL 32-36 [facility] Mucus LM Ql (Urine sed)Order ed By: Dr. Pineda on 11-14-2022 Mucus Ql (Urine sed) 0 SEEN /hpf [facility] Nitrite Test strip Ql (U)Ord ered By: Dr. Pineda on 11-14-2022 Nitrite Ql (U) Negative Negative [facility] No Panel InformationOrdered By: Dr. Pineda on 11-14-2022 Estimated Creatinine Clearance Calc 71.27 ml/min [facility] Estimated GFR (MDRD) Amer 94 mL/min >60 [facility] Comment on above: GFR Calc Estimated GFR (MDRD) Non-Af Amer 78 mL/min >60 [facility] Comment on above: Non- GFR Calc Platelets bldOrdered By: Dr. Pineda on 11-14-2022 Platelets (Bld) [#/Vol] 312 10*3/uL 150-450 [facility] Protein Test strip Ql (U)Ord ered By: Dr. Pineda on 11-14-2022 Protein Ql (U) Negative Negative [facility] Serum or plasma albumin elver urement (mass/volume)Ordered By: Dr. Pineda on 11-14-2022 Albumin [Mass/Vol] 4.5 g/dL 3.2-5.0 [facility] Serum or plasma calcium elver urement (mass/volume)Ordered By: Dr. Pineda on 11-14-2022 Calcium [Mass/Vol] 9.9 mg/dL 8.5-10.1 [facility] Serum or plasma creatinine m easurement (mass/volume)Ordered By: Dr. Pineda on 11-14-2022 Creatinine [Mass/Vol] 1.01 mg/dL 0.70-1.30 [facility] Comment on above: The validity of the calculated GFR & GFRAA in patients over 70 years has not been determined. Clinical correlation is essential. Serum or plasma urea nitroge n measurement (mass/volume)Ordered By: Dr. Pineda on 11-14-2022 Urea nitrogen [Mass/Vol] 17 mg/dL 7-18 [facility] Squamous epithelial cells de tection in urine sediment by light microscopyOrdered By: Dr. Pineda on 11-14-2022 Epithelial cells.squamous LM Ql (Urine sed) 0 SEEN /hpf 0-5 [facility] Thin prep Papanicolaou smear with manual screeningOrdered By: Dr. Pineda on 11-14-2022 Thin prep Papanicolaou smear with manual screening 19 U/L 15-37 [facility] Thin prep Papanicolaou smear with manual screening 5 5-15 [facility] Urine blood detectionOrdered By: Dr. Pineda on 11-14-2022 RBC Ql (U) Negative Negative [facility] RBC Ql (U) 0 SEEN /hpf 0-5 [facility] Urine clarityOrdered By: Dr. Pineda on 11-14-2022 Clarity (U) Clear Clear [facility] Urine color determinationOrd ered By: Dr. Pineda on 11-14-2022 Color (U) Yellow Yellow [facility] Urine glucose detectionOrder ed By: Dr. Pineda on 11-14-2022 Glucose Ql (U) Normal mg/dl Normal [facility] Urine leukocyte esterase det ection by dipstickOrdered By: Dr. Pineda on 11-14-2022 Leukocyte esterase Test strip Ql (U) Negative Negative [facility] Urine pHOrdered By: Dr. Endy vargas on 11-14-2022 pH (U) 7.0 [pH] 5.0 - 8.0 [facility] Urine sediment bacteria coun t by microscopy (number/high power field)Ordered By: Dr. Pineda on 11-14-2022 Bacteria LM.HPF (Urine sed) [#/Area] 0 /[HPF] None Seen [facility] Urine specific gravity measu rementOrdered By: Dr. Pineda on 11-14-2022 Specific gravity (U) [Rel density] 1.010 1.002-1.030 [facility] Urobilinogen Auto test strip Ql (U)Ordered By: Dr. Pineda on 11-14-2022 Urobilinogen Ql (U) Normal mg/dl Normal [facility] ANES POSTPROC EVALon 023 ANES POSTPROC EVAL HNO ID: [id number] Author: Eviat Morillo MD Service: Anesthesiology Author Type: Anesthesiologist Type: Anesthesia Postprocedure Evaluation Filed: 11/11/2022 12:32 PM Note Text: POST ANESTHESIA EVALUATION NOTE : 1955 Procedure Summary Date: 11/11/22 Room / Location: [place] [address] / [place] Anesthesia Start: 945 Anesthesia Stop: 1121 [...] November 11, 2022 TIME: 12:32 PM CSN: [id number] [facility] ANES PRE-OPon 11-11-2022 ANES PRE-OP HNO ID: [id number] Author: Evita Morillo MD Service: Anesthesiology Author Type: Anesthesiologist Type: Anesthesia Preprocedure Evaluation Filed: 11/11/2022 8:08 AM Note Text: ANESTHESIOLOGY DAY OF SURGERY NOTE : 1955 Procedure Information Date/Time: 11/11/22903 Procedure: LAPAROSCOPIC CHOLECYSTECTOMY WITH GRAMS Location: [place] Surgeons: Jose Juan Pena MD Estimated body mass index is 31.42 kg/m? as calculated from the following: Height as of this encounter: 177.8 cm (5' 10). Weight as of this encounter: 99.3 kg (219 lb). Most recent hematocrit and potassium results: Hematocrit Test sent to [facility]. 06/28/2018 Potassium Test sent to [facility]. 04/09/2019 Relevant Problems CARDIO (+) CAD (coronary [...] he was born with it CABG at [facility] . Beta Jey Monitoring Plan [...] by mouth once daily. - Blood-Glucose Meter (NoteleafYLE LITE METER) monitoring kit Test blood sugar(s) [...] Jaret Bates RAE (more content not included)... [facility] BRIEF OP NOTon 11-11-2022 BRIEF OP NOT HNO ID: [id number] Author: Jose Juan Pena MD Service: General Surgery Author Type: Physician Type: Brief Op Note Filed: 11/11/2022 11:14 AM Note Text: BRIEF OPERATIVE NOTATION FOR SURGICAL PROCEDURE. Jaret Ch Paulo 1955 [id number] male LOG ID: [id number] Surgery/Procedure Date: 11/11/2022 Incision/Procedure Start Time: 10:12 AM Incision Close/Procedure End Time: 11:06 AM Surgeon(s)/Proceduralist(s ) and Correspondence Section Supervisor(s): Surgeon(s) and Role: * Jose Juan Pena MD - Primary Physician Correspondence Section Supervisor: Miriam Boyle PA-C REFERRING PHYSICIAN: Dr. Bear Outpatient DEPT: [facility] PROVIDER: Malachi POS: [id number] ANESTHESIA: General ASA CLASS: 3 - Severe DIAGNOSIS: symptomatic cholelithiasis, RUQ pain, PROCEDURE: LAPAROSCOPIC CHOLECYSTECTOMY WITH INTRAOPERATIVE CHOLEANGIOGRAM - [id number] IVF: 1000 EBL: 50 Specimens: gallbladder ADDITIONAL [...] 06/16/2017 Added automatically from request for surgery [id number] Impaired fasting glucose 07/15/2016 Myalgia and myositis, unspecified Other and unspecified hyperlipidemia Other forms of migraine Other malaise and fatigue Other specified disease of hair and hair follicles Rosacea Snoring Temporomandibular joint disorders, unspecified Tubular adenoma of colon 10/30/2014 Unspecified constipation 06/28/2010 COMORBIDITIES - None Post Op Occurrences - None Wound Classification - Clean Contaminated Operative note dictated in the dictation system. - [id number] Jose Juan Pena MD [facility] HISTORY PHYSICALon HISTORY PHYSICAL HNO ID: [id number] Author: Jose Juan Pena MD Service: General [...] 06/16/2017 Added automatically from request for surgery [id number] Impaired fasting glucose 07/15/2016 Myalgia and myositis, [...] REDUCIBLE 20 (more content not included)... Normal [facility] OPERATIVE NOon 11-11-2022 OPERATIVE NO HNO ID: [id number] Author: Jose Juan Pena MD Service: General Surgery Author Type: Physician Type: Operative Report Filed: 11/12/2022 8:28 AM Note Text: [facility] - Operative Report JARET BATES : 1955 AGE: 67. SEX: M PATIENT TYPE: A HOSP SVC: [facility] LOCATION: [facility] ATTENDING PHYSICIAN: Jose Juan Pena M.D. CSN NUMBER: [id number] DATE OF SURGERY/PROCEDURE: 11/11/2022 INCISION/PROCEDURE START TIME: 10:12 a.m. INCISION CLOSE/PROCEDURE END TIME: 11:06 a.m. PREOPERATIVE DIAGNOSIS: Symptomatic cholelithiasis, right upper quadrant pain. POSTOPERATIVE DIAGNOSIS: Symptomatic cholelithiasis, right upper quadrant pain, normal cholangiogram. SURGEON: Jose Juan Pena M.D. BOAT GARNISHER: Miriam oByle PA-C. SURGERY/PROCEDURE: Laparoscopic cholecystectomy with intraoperative cholangiogram. ANESTHESIA: General endotracheal. LOGIN ID: [id number] ANESTHESIOLOGIST: Dr. Morillo. ASA: 3. INTRAVENOUS FLUIDS: [...] removed through the port site. 0 PDS [id number] sutures placed on the supraumbilical port site [...] stable condition. Miriam Boyle was my 1st junior sales assistant. She assisted in visualization, retraction, and subcuticular closure. There were no surgeons or qualified residents available. Jose Juan Pena M.D. RG:[id number] /[id number] Normal [facility] SURGICAL PATHOLOGYon 023 CASE REPORT Normal [facility] Comment on above: Order Comment: Speci men Type: TISSUE SPECIMEN Ordering Facility: [facility] Address: [address] [place] [address] Result Comment: Surg ical Pathology Report Case: [id number] Authorizing Provider: Jose Juan Pena MD Collected: 11/11/2022 10:24 AM Ordering Location: [facility] Surgery Received: 11/11/2022 12:11 PM Pathologist: Bull Booth MD Specimen: [id number] Performed By: #### S #### [facility] CLIA [id number] [address] [place] [address] OF [facility] CLINICAL HISTORY Normal [facility] Comment on above: Order Comment: Speci sierra Type: TISSUE SPECIMEN Ordering Facility: [facility] Address: [address] [place] [address] Result Comment: Pre- op diagnosis: Calculus of gallbladder without cholecystitis without obstruction [K80.20] RUQ pain [R10.11] Performed By: #### S #### [facility] CLIA [id number] [address] [place] [address] FINAL DIAGNOSIS Normal [facility] Comment on above: Order Comment: Speci sierra Type: TISSUE SPECIMEN Ordering Facility: [facility] Address: [address] [place] [address] Result Comment: Gall bladder, cholecystectomy: -Chronic cholecystitis with cholelithiasis Performed By: #### S #### [facility] CLIA [id number] [address] [place] [address] STATES OF FINAL PERFORMING LAB Normal [facility] Comment on above: Order Comment: Samantha esquivel Type: TISSUE SPECIMEN Ordering Facility: [facility] Address: [address] [place] [address] Result Comment: Diag nostic interpretation performed at [facility], [address] [place] [address] CLIA# [id number] Systems Support Engineer: Fam Martinez M.D. Performed By: #### S #### [facility] CLIA [id number] [address] [place] [address] [place] GROSS DESCRIPTION A. GALLBLADDER Normal [facility] Comment on above: Order Comment: Samantha esquivel Type: TISSUE SPECIMEN Ordering Facility: [facility] Address: [address] [place] [address] Result Comment: Rece ived in formalin labeled [...] trabecular. The wall thickness measures 0.2 cm. Car Dumper sections are submitted in one cassette. MELONY/MLLux November 11, 2022 4:36 PM Gross examination performed at [facility], [address] [place] [address] Performed By: #### S #### [facility] CLIA [id number] [address] [place] [address] OF Marco Antonio 11-09-2022 SONY Telephone ([employer]) -- PAULOJARET Jing ([id number]) 1955 M NFR Date Time Provider Department 11/09/22 NITISH NORRIS During your visit today, we recorded the following information about you: Nitish Norris APRN.DOMESTIC CLEANER 11/09/2022 6:19 AM Signed Please request most recent labs, especially A1c from PCP's office. And cardiac records, last OV from [facility]. DOS 11/11/2022 Araceli Davis LPN 11/09/2022 8:23 AM Signed Called and left message with Katerina at [facility] to return call. Callback number given. TORI Harrison LPN 11/09/2022 8:28 AM Signed Called and left message at Dr. Mathews office requesting patients most recent labs especially A1c to be faxed. Callback number and fax number given. TORI Harrison LPN 11/09/2022 8:58 AM Signed Received a call from [facility] stating Dr. Mckeon office has moved and new phone number is [phone]. I called Dr. Mckeon new office and spoke with Katirna. Requested labs especially A1c to be faxed, fax number given. TORI Harrison LPN 11/09/2022 9:27 AM Signed Received labs from Dr. Bear's office. Copy made for Nitish Norris CNP and original sent to [facility] through [employer]. TORI Harrison LPN 11/09/2022 9:31 AM Signed Called and spoke with Katerina at [facility], she will fax last office visit and cardiac records. TORI Harrison LPN 11/09/2022 2:18 PM Signed Received last office visit and cardiac testing from [facility]. Copy made for Nitish Norris CNP and original sent to [facility]. Araceli Davis LPN Allergies As of Date: 11/09/2022 Noted Allergy Reaction ADHESIVE TAPE (ROSINS) 10/15/2014 9 - Itching CONTRAST DYE 07/28/2009 Comments: possible FD AND C BLUE NO.1 07/28/2009 SERTRALINE 01/14/2004 Comments: zoloft, hot, elevated BP Date Reviewed: 11/04/2022 Reviewed by: Nitish Norris APRN.DOMESTIC CLEANER - Fully Assessed Reason for Visit: Request [...] sympto*08/04/2017 Obesi (more content not included)... Normal [facility] HISTORY PHYSICALon HISTORY PHYSICAL HNO ID: [id number] Author: Nitish Norris APRN.DOMESTIC CLEANER Service: ? Author Type: Nurse Practitioner Type: [...] Pedro that after being evaluated by Edilia Huntre the patient had an ER visit on [...] fevers. Neurological: No history of TIA's, stroke, VARIETY PERFORMER tumor, impaired sensorium, hemiplegia, paraplegia or quadraplegia. No neurological symptoms or problems. Respiratory: Positive for: asthma and COPD. Negative for: pneumonia within 6 weeks, tobacco use, URI < 2 weeks and obstructive sleep apnea. Cardiovascular: Positive for: anticoagulation therapy (ASA), CAD, hyperlipidemia (on rx) and open heart surgery Negative for: arrhythmia, atrial fibrillation, chest pain, CHF, congenital heart defect, DVT/PE, hypertension, recent MA, murmur/valvular heart disease, PVD and valve surgery. GI: See HPI. Negative for: abdominal pain, dysphagia, GERD, hepatitis, irritable bowel syndrome, inflammatory bowel disease, liver disease, nausea, pancreatitis, vomiting and ETOH (more content not included)... Normal [facility] Laboratory - Hematology and Cell countson 10-27-2022 HbA1c (Bld) [Mass fraction] 6.2 % 4.2-6.3 [facility] CNOVon 10-20-2022 CNOV Office Visit (GENSWS ) -- JARET BATES ([id number]) 1955 M NFR Date Time Provider Department [...] 06/16/2017 Added automatically from request for surgery [id number] Impaired fasting glucose 07/15/2016 Myalgia and myositis, [...] NEUROPLASTY AN (more content not included)... Normal [facility] CNPNon 10-20-2022 CNPN Telephone ([employer]) -- JARET BATES ([id number]) 1955 M NFR Date Time Provider Department 10/20/22 JOSE JUAN PENA During your visit today, we recorded the following information about you: Dayron Orozco LPN 10/20/2022 9:41 AM Signed Called and spoke to [facility], CT scan dept. Pushed image per Dr [...] Visit: Results [95] Cmt: CT scan from [facility] Prescriptions as of 10/20/2022 - omeprazole (PRILOSEC) [...] Status:Closed by DAYRON OROZCO on 10/20/22 Normal [facility] CNOVon 10-07-2022 CNOV Office Visit (GENSWS ) -- JARET BATES ([id number]) 1955 Eula Evelina Date Time Provider Department 10/07/22 3:30 PM EDILIA HUNTER During your visit today, we recorded the following information about you: Temperature Pulse Blood pressure 97.9 degrees 82/minute 112/88 Edilia Hunter PA-C 10/13/2022 2:07 PM Signed FOLLOW UP VISIT - ENDOSCOPY NAME: Jaret Bates [facility] NO.: [id number] DATE OF SERVICE: 10/07/2022 : 1955 REFERRING [...] which included preparing to see the patient, [id number] patient care, completing clinical documentation, obtaining and/or [...] to your office visit today with the [facility] General Surgeons. INSTRUCTIONS FOLLOWING A [...] needing other (more content not included)... Normal [facility] SURGICAL PATHOLOGYon 023 Case Report Surgical Pathology R eport Case: [id number] Authorizing Provider: Jose Juan Pena MD Collected: 09/27/2022 09:48 AM Ordering Location: Ambulatory Surgery Received: 09/27/2022 02:22 PM Pathologist: Francisco Arteaga MD, PhD Specimens: A) - JEJUNUM BIOPSY B) - ANTRUM (STOMACH) BIOPSY, Antral for H/H C) - ESOPHAGUS BIOPSY, Distal esophagus bx D) - ESOPHAGUS MID BIOPSY [facility] FINAL DIAGNOSIS A. Jejunum, biopsy: -Small bowel mucosa with no diagnostic abnormality. B. Antrum, biopsy: -Antral mucosa with reactive gastropathy. -No morphologic evidence of H. pylori on routine stain. C. Esophagus, distal, biopsy: -Squamous epithelium with no diagnostic abnormality. D. Esophagus, MID, biopsy: -Squamous epithelium with no diagnostic abnormality. [facility] Gross Description A. JEJUNUM BIOPSY Received in formalin is one piece of meredith, soft tissue measuring 0.5 x 0.4 x 0.2 cm. Totally submitted in one cassette. B. ANTRUM (STOMACH) BIOPSY Received in formalin is one piece of mereidth, soft tissue measuring 0.5 x 0.3 x [...] 2022 11:09 PM Gross examination performed at [facility], [address] [place], [place] [address] [place] [address] Performing Lab Diagnostic interpret ation performed at [facility], [address] [facility] [address] CLIA# [id number] Systems Support Engineer: Fam Martinez M.D. [facility] COLONOSCOPY SCREENINGon 09-14 [facility] EGD DIAGNOSTICon 09-27-2022 [facility] GLUCOSE, BLOOD (POC)on 09-27 Glucose [Mass/Vol] 131 mg/dL Abnormal 74 - 99 mg/dL [facility] Absolute lymphocyte countOrd ered By: Dr. Warner on 09-12-2022 Lymphocytes Auto (Unsp spec) [#/Vol] 1.78 10*3/uL 0.83-4.51 [facility] Basophil percentageOrdered B y: Dr. Warner on 09-12-2022 Lactate [Moles/Vol] 0.8 mmol/L 0.4-2.0 [facility] Basophil percentage 0 SEEN /hpf 0-5 [facility] Basophils/100 WBC (Bld) 0.7 % 0-1 [facility] Bilirubin [Mass/Vol] 1.30 mg/dL 0.20-1.00 [facility] Comment on above: For patients on eltr ombopag therapy, use of Dimension Ruso TBIL is not recommended. Chloride [Moles/Vol] 108 mmol/L 98-107 [facility] Eosinophils/100 WBC (Bld) 2.7 % 0-5 [facility] Glucose [Mass/Vol] 110 mg/dL 74-106 [facility] Comment on above: Fasting Glucose resu lt from 100 to 125 mg/dL suggests IMPAIRED HOMEOSTASIS per A.D.A. criteria. Neutrophils (Bld) [#/Vol] 4.4 10*3/uL 2.0-7.7 [facility] Neutrophils/100 WBC (Bld) 62.5 % 47-70 [facility] Potassium [Moles/Vol] 4.2 mmol/L 3.5-5.1 [facility] Protein [Mass/Vol] 7.2 g/dL 6.4-8.2 [facility] Sodium [Moles/Vol] 140 mmol/L 136-145 [facility] WBC (Bld) [#/Vol] 7.1 10*3/uL 4.4-11.0 [facility] Bilirubin Test strip Ql (U)O rdered By: Dr. Warner on 09-12-2022 Bilirubin Ql (U) Negative Negative [facility] Blood erythrocytes count (nu mber/volume)Ordered By: Dr. Warner on 09-12-2022 RBC (Bld) [#/Vol] 4.82 10*6/uL 4.6-6.2 [facility] Blood hemoglobin measurement (mass/volume)Ordered By: Dr. Warner on 09-12-2022 Hemoglobin (Bld) [Mass/Vol] 14.1 g/dL 13.0-16.5 [facility] Blood lymphocytes/100 leukoc ytesOrdered By: Dr. Warner on 09-12-2022 Lymphocytes/100 WBC (Bld) 25.2 % 19-41 [facility] Blood monocytes/100 leukocyt esOrdered By: Dr. Warner on 09-12-2022 Monocytes/100 WBC (Bld) 8.6 % 0-10 [facility] Blood platelet mean volumeOr dered By: Dr. Warner on 09-12-2022 Platelet mean volume (Bld) [Entitic vol] 8.5 fL 6.2-12.0 [facility] Determination of erythrocyte mean corpuscular volume (MCV)Ordered By: Dr. Warner on 09-12-2022 MCV (RBC) [Entitic vol] 89.6 fL 80-94 [facility] Direct bilirubinOrdered By: Dr. Warner on 09-12-2022 Bilirubin.direct [Mass/Vol] 0.30 mg/dL 0.00-0.30 [facility] Hematocrit Auto (Bld) [Volum e fraction]Ordered By: Dr. Warner on 09-12-2022 Hematocrit (Bld) [Volume fraction] 43.2 % 40-54 [facility] Ketones Test strip Ql (U)Ord ered By: Dr. Warner on 09-12-2022 Ketones Ql (U) Negative Negative [facility] Laboratory - Chemistry and C hemistry - challengeOrdered By: Dr. Warner on 09-12-2022 ALP [Catalytic activity/Vol] 96 U/L 45-117 [facility] ALT [Catalytic activity/Vol] 29 U/L 16-61 [facility] CO2 [Moles/Vol] 27.0 mmol/L 21.0-32.0 [facility] Globulin (S) [Mass/Vol] 3.4 g/dL 2.2-4.2 [facility] Lipase [Catalytic activity/Vol] 123 U/L 73-393 [facility] Urea nitrogen/Creatinine [Mass ratio] 23.4 mg/mg 10-20 [facility] Laboratory - Hematology and Cell countsOrdered By: Dr. Warner on 09-12-2022 Erythrocyte distribution width (RBC) [Entitic vol] 41.9 fL 35.1-43.9 [facility] Erythrocyte distribution width (RBC) [Ratio] 12.7 % 11.6-14.6 [facility] Immature granulocytes/100 WBC (Bld) 0.300 % 0.0-0.9 [facility] Comment on above: IG% - Immature Granu locytes (promyelocytes, myelocytes and metamyelocytes) > 1% indicates that a LEFT SHIFT is Present. MCH (RBC) [Entitic mass] 29.3 pg 27.0-32.0 [facility] Nucleated RBC/100 WBC (Bld) [Ratio] 0 % 0-5 [facility] MCHC Auto (RBC) [Mass/Vol]Or dered By: Dr. Warner on 09-12-2022 MCHC (RBC) [Mass/Vol] 32.6 g/dL 32-36 [facility] Mucus LM Ql (Urine sed)Order ed By: Dr. Warner on 09-12-2022 Mucus Ql (Urine sed) 0 SEEN /hpf [facility] Nitrite Test strip Ql (U)Ord ered By: Dr. Warner on 09-12-2022 Nitrite Ql (U) Negative Negative [facility] No Panel InformationOrdered By: Dr. Warner on 09-12-2022 Estimated Creatinine Clearance Calc 84.69 ml/min [facility] Estimated GFR (MDRD) Amer 114 mL/min >60 [facility] Comment on above: GFR Calc Estimated GFR (MDRD) Non-Af Amer 95 mL/min >60 [facility] Comment on above: Non- GFR Calc Platelets bldOrdered By: Dr. Warner on 09-12-2022 Platelets (Bld) [#/Vol] 249 10*3/uL 150-450 [facility] Protein Test strip Ql (U)Ord ered By: Dr. Warner on 09-12-2022 Protein Ql (U) 15 mg/dl Negative [facility] Serum or plasma albumin elver urement (mass/volume)Ordered By: Dr. Warner on 09-12-2022 Albumin [Mass/Vol] 3.8 g/dL 3.2-5.0 [facility] Serum or plasma calcium elver urement (mass/volume)Ordered By: Dr. Warner on 09-12-2022 Calcium [Mass/Vol] 9.5 mg/dL 8.5-10.1 [facility] Serum or plasma creatinine m easurement (mass/volume)Ordered By: Dr. Warner on 09-12-2022 Creatinine [Mass/Vol] 0.85 mg/dL 0.70-1.30 [facility] Comment on above: The validity of the calculated GFR & GFRAA in patients over 70 years has not been determined. Clinical correlation is essential. Serum or plasma urea nitroge n measurement (mass/volume)Ordered By: Dr. Warner on 09-12-2022 Urea nitrogen [Mass/Vol] 20 mg/dL 7-18 [facility] Squamous epithelial cells de tection in urine sediment by light microscopyOrdered By: Dr. Warner on 09-12-2022 Epithelial cells.squamous LM Ql (Urine sed) 0 SEEN /hpf 0-5 [facility] Thin prep Papanicolaou smear with manual screeningOrdered By: Dr. Warner on 09-12-2022 Thin prep Papanicolaou smear with manual screening 21 U/L 15-37 [facility] Thin prep Papanicolaou smear with manual screening 5 5-15 [facility] Urine blood detectionOrdered By: Dr. Warner on 09-12-2022 RBC Ql (U) Negative Negative [facility] RBC Ql (U) 0 SEEN /hpf 0-5 [facility] Urine clarityOrdered By: Dr. Warner on 09-12-2022 Clarity (U) Clear Clear [facility] Urine color determinationOrd ered By: Dr. Warner on 09-12-2022 Color (U) Yellow Yellow [facility] Urine glucose detectionOrder ed By: Dr. Warner on 09-12-2022 Glucose Ql (U) Normal mg/dl Normal [facility] Urine leukocyte esterase det ection by dipstickOrdered By: Dr. Warner on 09-12-2022 Leukocyte esterase Test strip Ql (U) Negative Negative [facility] Urine pHOrdered By: Dr. Christina sotomayor on 09-12-2022 pH (U) 5.0 [pH] 5.0 - 8.0 [facility] Urine sediment bacteria coun t by microscopy (number/high power field)Ordered By: Dr. Warner on 09-12-2022 Bacteria LM.HPF (Urine sed) [#/Area] 0 /[HPF] None Seen [facility] Urine specific gravity measu rementOrdered By: Dr. Warner on 09-12-2022 Specific gravity (U) [Rel density] 1.020 1.002-1.030 [facility] Urobilinogen Auto test strip Ql (U)Ordered By: Dr. Warner on 09-12-2022 Urobilinogen Ql (U) Normal mg/dl Normal [facility] Glucose Glucometer (BldC) [M ass/Vol]Ordered By: Dr. Garcia on 06-20-2022 Glucose [Mass/Vol] 120 mg/dL 74-106 [facility] Comment on above: MANAGEMENT OF PATIEN T CARE PER NURSING PROTOCOL Absolute lymphocyte counton 04-21-2022 Lymphocytes Auto (Unsp spec) [#/Vol] 1.70 10*3/uL 0.83-4.51 [facility] Work Phone: Basophil percentageon 2021 Basophils/100 WBC (Bld) 0.6 % 0-1 [facility] Work Phone: Bilirubin [Mass/Vol] 0.80 mg/dL 0.20-1.00 [facility] [facility] [place] Work Phone: Comment on above: For patients on eltr ombopag therapy, use of Dimension Ruso TBIL is not recommended. Chloride [Moles/Vol] 106 mmol/L 98-107 [facility] Work Phone: [phone] Cholesterol [Mass/Vol] 184 mg/dL <200 [facility] Work Phone: Comment on above: <200 mg/dL Desirable 200-240 mg/dL Borderline >240 mg/dL High Risk Eosinophils/100 WBC (Bld) 4.4 % 0-5 [facility] Work Phone: [phone] Glucose [Mass/Vol] 114 mg/dL 74-106 [facility] Work Phone: [phone] Comment on above: Fasting Glucose resu lt from 100 to 125 mg/dL suggests IMPAIRED HOMEOSTASIS per A.D.A. criteria. Neutrophils (Bld) [#/Vol] 4.1 10*3/uL 2.0-7.7 [facility] Work Phone: [phone] Neutrophils/100 WBC (Bld) 60.4 % 47-70 [facility] Work Phone: [phone] Potassium [Moles/Vol] 4.7 mmol/L 3.5-5.1 [facility] Work Phone: [phone] Protein [Mass/Vol] 7.2 g/dL 6.4-8.2 [facility] Work Phone: [phone] Sodium [Moles/Vol] 139 mmol/L 136-145 [facility] Work Phone: Triglyceride [Mass/Vol] 50 mg/dL <199 [facility] Work Phone: Comment on above: The drugs N-Acetylcy steine and Metamizole may falsely depress this assay.Serum Triglycerides Reference Interval Normal <150 mg/dL Borderline high 150 - 199 mg/dL High 200 - 499 mg/dL Very High > or = 500 mg/dL WBC (Bld) [#/Vol] 6.8 10*3/uL 4.4-11.0 [facility] Work Phone: Blood erythrocytes count (nu mber/volume)on 04-21-2022 RBC (Bld) [#/Vol] 4.59 10*6/uL 4.6-6.2 [facility] Work Phone: Blood hemoglobin measurement (mass/volume)on 04-21-2022 Hemoglobin (Bld) [Mass/Vol] 13.8 g/dL 13.0-16.5 [facility] Work Phone: Blood lymphocytes/100 leukoc yteson 04-21-2022 Lymphocytes/100 WBC (Bld) 25.1 % 19-41 [facility] Work Phone: Blood monocytes/100 leukocyt eson 04-21-2022 Monocytes/100 WBC (Bld) 9.4 % 0-10 [facility] Work Phone: Blood platelet mean volumeon 04-21-2022 Platelet mean volume (Bld) [Entitic vol] 8.5 fL 6.2-12.0 [facility] Work Phone: [phone] Determination of erythrocyte mean corpuscular volume (MCV)on 04-21-2022 MCV (RBC) [Entitic vol] 90.2 fL 80-94 [facility] Work Phone: [phone] Direct bilirubinon Bilirubin.direct [Mass/Vol] 0.17 mg/dL 0.00-0.30 [facility] Work Phone: [phone] Hematocrit Auto (Bld) [Volum e fraction]on 04-21-2022 Hematocrit (Bld) [Volume fraction] 41.4 % 40-54 [facility] Work Phone: [phone] Laboratory - Chemistry and C hemistry - challengeon 04-21-2022 ALP [Catalytic activity/Vol] 100 U/L 45-117 [facility] Work Phone: ALT [Catalytic activity/Vol] 31 U/L 16-61 [facility] Work Phone: [phone] CO2 [Moles/Vol] 26.0 mmol/L 21.0-32.0 [facility] Work Phone: [phone] Globulin (S) [Mass/Vol] 3.5 g/dL 2.2-4.2 [facility] Work Phone: [phone] Urea nitrogen/Creatinine [Mass ratio] 23.1 mg/mg 10-20 [facility] Work Phone: Laboratory - Hematology and Cell countson 04-21-2022 Erythrocyte distribution width (RBC) [Entitic vol] 43.8 fL 35.1-43.9 [facility] Work Phone: Erythrocyte distribution width (RBC) [Ratio] 13.3 % 11.6-14.6 [facility] Work Phone: Immature granulocytes/100 WBC (Bld) 0.100 % 0.0-0.9 [facility] Work Phone: Comment on above: IG% - Immature Granu locytes (promyelocytes, myelocytes and metamyelocytes) > 1% indicates that a LEFT SHIFT is Present. MCH (RBC) [Entitic mass] 30.1 pg 27.0-32.0 [facility] Work Phone: Nucleated RBC/100 WBC (Bld) [Ratio] 0 % 0-5 [facility] Work Phone: MCHC Auto (RBC) [Mass/Vol]on 04-21-2022 MCHC (RBC) [Mass/Vol] 33.3 g/dL 32-36 [facility] Work Phone: No Panel Informationon 04-21 Estimated GFR (MDRD) Amer 101 mL/min >60 [facility] Work Phone: Comment on above: GFR Calc Estimated GFR (MDRD) Non-Af Amer 83 mL/min >60 [facility] Work Phone: Comment on above: Non- GFR Calc Thyroid Stimulating Hormone (TSH) 2.99 uIU/mL 0.358-3.74 [facility] Work Phone: Vitamin D 25-Hydroxy 38.8 ng/mL [facility] [place] Work Phone: Comment on above: Vitamin D 25(OH) Sta tus Range Deficiency <20 ng/mL (50nmol/L) Insufficiency 20 - 30 ng/mL (50 - 75 nmol/L) Sufficiency 30 - 100 ng/mL (75 - 250 nmol/L) Toxicity >100 ng/mL (>250 nmol/L) Platelets bldon 04-21-2022 Platelets (Bld) [#/Vol] 261 10*3/uL 150-450 [facility] Work Phone: Serum or plasma albumin elver urement (mass/volume)on 04-21-2022 Albumin [Mass/Vol] 3.7 g/dL 3.2-5.0 [facility] Work Phone: Serum or plasma albumin/glob ulin mass ratioon 04-21-2022 Albumin/Globulin [Mass ratio] 1.1 {ratio} 0.9-2.4 [facility] Work Phone: Serum or plasma calcium elver urement (mass/volume)on 04-21-2022 Calcium [Mass/Vol] 9.2 mg/dL 8.5-10.1 [facility] Work Phone: Serum or plasma cholesterol in HDL measurement (mass/volume)on 04-21-2022 Cholesterol in HDL [Mass/Vol] 59 mg/dL >40 [facility] Work Phone: Comment on above: The drugs N-Acetylcy steine and Metamizole may falsely depress this assay. Reference Range HDL <40 mg/dL Low HDL Cholesterol HDL >or= 60 mg/dL High HDL Cholesterol Serum or plasma cholesterol in VLDL measurement (mass/volume)on 04-21-2022 Cholesterol in VLDL [Mass/Vol] 10 mg/dL 5-40 [facility] Work Phone: Serum or plasma creatinine m easurement (mass/volume)on 04-21-2022 Creatinine [Mass/Vol] 0.95 mg/dL 0.70-1.30 [facility] Work Phone: Comment on above: The validity of the calculated GFR & GFRAA in patients over 70 years has not been determined. Clinical correlation is essential. Serum or plasma low density lipoprotein (LDL) cholesterol measurement (mass/volume)on 04-21-2022 Cholesterol in LDL [Mass/Vol] 115 mg/dL 0-130 [facility] Work Phone: Serum or plasma urea nitroge n measurement (mass/volume)on 04-21-2022 Urea nitrogen [Mass/Vol] 22 mg/dL 7-18 [facility] Work Phone: Thin prep Papanicolaou smear with manual screeningon 04-21-2022 Thin prep Papanicolaou smear with manual screening 21 U/L 15-37 [facility] Work Phone: Thin prep Papanicolaou smear with manual screening 7 5-15 [facility] Work Phone: Whole blood hemoglobin A1c/t otal hemoglobin ratio (mass fraction)on 04-21-2022 HbA1c (Bld) [Mass fraction] 6.7 % 3.8-5.6 [facility] Work Phone: Comment on above: Normal < 5.7 % Predi abetic 5.7 - 6.4 % Diabetic >or= 6.5 % Please note range changes. Basophil percentageon 2021 Basophil percentage 0 SEEN /hpf 0-5 [facility] [place] Work Phone: Bilirubin Test strip Ql (U)o n 03-24-2022 Bilirubin Ql (U) Negative Negative [facility] Work Phone: Ketones Test strip Ql (U)on 03-24-2022 Ketones Ql (U) Negative Negative [facility] Work Phone: Mucus LM Ql (Urine sed)on Mucus Ql (Urine sed) 0 SEEN /hpf [facility] Work Phone: Nitrite Test strip Ql (U)on 03-24-2022 Nitrite Ql (U) Negative Negative [facility] Work Phone: Protein Test strip Ql (U)on 03-24-2022 Protein Ql (U) Negative Negative [facility] Work Phone: Squamous epithelial cells de tection in urine sediment by light microscopyon 03-24-2022 Epithelial cells.squamous LM Ql (Urine sed) 0-5 SEEN /hpf 0-5 [facility] Work Phone: Urine blood detectionon 03-14 RBC Ql (U) Negative Negative [facility] Work Phone: RBC Ql (U) 0 SEEN /hpf 0-5 [facility] Work Phone: Urine clarityon 03-24-2022 Clarity (U) Clear Clear [facility] Work Phone: Urine color determinationon 03-24-2022 Color (U) Yellow Yellow [facility] Work Phone: Urine glucose detectionon Glucose Ql (U) Normal mg/dl Normal [facility] Work Phone: Urine leukocyte esterase det ection by dipstickon 03-24-2022 Leukocyte esterase Test strip Ql (U) Negative Negative [facility] Work Phone: Urine pHon 03-24-2022 pH (U) 6.0 [pH] 5.0 - 8.0 [facility] Work Phone: Urine sediment bacteria coun t by microscopy (number/high power field)on 03-24-2022 Bacteria LM.HPF (Urine sed) [#/Area] 0 /[HPF] None Seen [facility] Work Phone: Urine specific gravity measu rementon 03-24-2022 Specific gravity (U) [Rel density] 1.015 1.002-1.030 [facility] Work Phone: Urobilinogen Auto test strip Ql (U)on 03-24-2022 Urobilinogen Ql (U) Normal mg/dl Normal [facility] Work Phone: No Panel Informationon 03-22 POC SARS CoV-2 Antigen Positive [facility] Work Phone: Glucose Glucometer (BldC) [M ass/Vol]on 03-01-2022 Glucose [Mass/Vol] 107 mg/dL 74-106 [facility] Work Phone: Comment on above: MANAGEMENT OF PATIEN T CARE PER NURSING PROTOCOL Basophil percentageon 2021 Bilirubin [Mass/Vol] 1.00 mg/dL 0.20-1.00 [facility] [place] Work Phone: Comment on above: For patients on eltr ombopag therapy, use of Dimension Ruso TBIL is not recommended. Cholesterol [Mass/Vol] 258 mg/dL <200 [facility] Work Phone: Comment on above: <200 mg/dL Desirable 200-240 mg/dL Borderline >240 mg/dL High Risk Protein [Mass/Vol] 6.8 g/dL 6.4-8.2 [facility] Work Phone: Triglyceride [Mass/Vol] 113 mg/dL <199 [facility] Work Phone: Comment on above: The drugs N-Acetylcy steine and Metamizole may falsely depress this assay.Serum Triglycerides Reference Interval Normal <150 mg/dL Borderline high 150 - 199 mg/dL High 200 - 499 mg/dL Very High > or = 500 mg/dL Direct bilirubinon 2 Bilirubin.direct [Mass/Vol] 0.19 mg/dL 0.00-0.30 [facility] Work Phone: Laboratory - Chemistry and C hemistry - challengeon 11-15-2021 ALP [Catalytic activity/Vol] 92 U/L 45-117 [facility] Work Phone: ALT [Catalytic activity/Vol] 34 U/L 16-61 [facility] Work Phone: Globulin (S) [Mass/Vol] 3.0 g/dL 2.2-4.2 [facility] Work Phone: Serum or plasma albumin elver urement (mass/volume)on 11-15-2021 Albumin [Mass/Vol] 3.8 g/dL 3.2-5.0 [facility] Work Phone: Serum or plasma cholesterol in HDL measurement (mass/volume)on 11-15-2021 Cholesterol in HDL [Mass/Vol] 44 mg/dL >40 [facility] Work Phone: Comment on above: The drugs N-Acetylcy steine and Metamizole may falsely depress this assay. Reference Range HDL <40 mg/dL Low HDL Cholesterol HDL >or= 60 mg/dL High HDL Cholesterol Serum or plasma cholesterol in VLDL measurement (mass/volume)on 11-15-2021 Cholesterol in VLDL [Mass/Vol] 23 mg/dL 5-40 [facility] Work Phone: Serum or plasma low density lipoprotein (LDL) cholesterol measurement (mass/volume)on 11-15-2021 Cholesterol in LDL [Mass/Vol] 191 mg/dL 0-130 [facility] Work Phone: [phone] Thin prep Papanicolaou smear with manual screeningon 11-15-2021 Thin prep Papanicolaou smear with manual screening 23 U/L 15-37 [facility] Work Phone: Absolute lymphocyte counton 10-04-2021 Lymphocytes Auto (Unsp spec) [#/Vol] 2.41 10*3/uL 0.83-4.51 [facility] Work Phone: [phone] Basophil percentageon 2021 Basophils/100 WBC (Bld) 0.7 % 0-1 [facility] Work Phone: Bilirubin [Mass/Vol] 1.10 mg/dL 0.20-1.00 [facility] [place] Work Phone: [phone] Comment on above: For patients on eltr ombopag therapy, use of Dimension Ruso TBIL is not recommended. Chloride [Moles/Vol] 104 mmol/L 98-107 [facility] [place] Work Phone: Eosinophils/100 WBC (Bld) 2.7 % 0-5 [facility] Work Phone: Glucose [Mass/Vol] 91 mg/dL 74-106 [facility] Work Phone: Neutrophils (Bld) [#/Vol] 3.8 10*3/uL 2.0-7.7 [facility] Work Phone: Neutrophils/100 WBC (Bld) 53.8 % 47-70 [facility] Work Phone: [phone] Potassium [Moles/Vol] 4.0 mmol/L 3.5-5.1 [facility] Work Phone: Protein [Mass/Vol] 7.5 g/dL 6.4-8.2 [facility] Work Phone: Sodium [Moles/Vol] 137 mmol/L 136-145 [facility] Work Phone: WBC (Bld) [#/Vol] 7.1 10*3/uL 4.4-11.0 [facility] Work Phone: Blood erythrocytes count (nu mber/volume)on 10-04-2021 RBC (Bld) [#/Vol] 4.81 10*6/uL 4.6-6.2 [facility] Work Phone: [phone] Blood hemoglobin measurement (mass/volume)on 10-04-2021 Hemoglobin (Bld) [Mass/Vol] 14.2 g/dL 13.0-16.5 [facility] Work Phone: Blood lymphocytes/100 leukoc yteson 10-04-2021 Lymphocytes/100 WBC (Bld) 34.0 % 19-41 [facility] Work Phone: Blood monocytes/100 leukocyt eson 10-04-2021 Monocytes/100 WBC (Bld) 8.7 % 0-10 [facility] Work Phone: Blood platelet mean volumeon 10-04-2021 Platelet mean volume (Bld) [Entitic vol] 8.9 fL 6.2-12.0 [facility] Work Phone: [phone] Determination of erythrocyte mean corpuscular volume (MCV)on 10-04-2021 MCV (RBC) [Entitic vol] 90.4 fL 80-94 [facility] Work Phone: [phone] Hematocrit Auto (Bld) [Volum e fraction]on 10-04-2021 Hematocrit (Bld) [Volume fraction] 43.5 % 40-54 [facility] Work Phone: [phone] Laboratory - Chemistry and C hemistry - challengeon 10-04-2021 ALP [Catalytic activity/Vol] 106 U/L 45-117 [facility] Work Phone: [phone] ALT [Catalytic activity/Vol] 33 U/L 16-61 [facility] Work Phone: [phone] CO2 [Moles/Vol] 27.0 mmol/L 21.0-32.0 [facility] Work Phone: [phone] Globulin (S) [Mass/Vol] 3.2 g/dL 2.2-4.2 [facility] Work Phone: [phone] Urea nitrogen/Creatinine [Mass ratio] 23.5 mg/mg 10-20 [facility] Work Phone: [phone] Laboratory - Hematology and Cell countson 10-04-2021 Erythrocyte distribution width (RBC) [Entitic vol] 44.0 fL 35.1-43.9 [facility] Work Phone: [phone] Erythrocyte distribution width (RBC) [Ratio] 13.2 % 11.6-14.6 [facility] Work Phone: [phone] Immature granulocytes/100 WBC (Bld) 0.100 % 0.0-0.9 [facility] Work Phone: Comment on above: IG% - Immature Granu locytes (promyelocytes, myelocytes and metamyelocytes) > 1% indicates that a LEFT SHIFT is Present. MCH (RBC) [Entitic mass] 29.5 pg 27.0-32.0 [facility] Work Phone: Nucleated RBC/100 WBC (Bld) [Ratio] 0 % 0-5 [facility] Work Phone: [phone] MCHC Auto (RBC) [Mass/Vol]on 10-04-2021 MCHC (RBC) [Mass/Vol] 32.6 g/dL 32-36 [facility]: No Panel Informationon 10-04 Estimated GFR (MDRD) Amer 103 mL/min >60 [facility] Work Phone: Comment on above: GFR Calc Estimated GFR (MDRD) Non-Af Amer 85 mL/min >60 [facility] Work Phone: Comment on above: Non- GFR Calc Prostate Specific Antigen Total 1.13 ng/mL 0.0-4.0 [facility] Work Phone: Comment on above: This test was perfor med using the TPSA assay method for the[employer] chemistry system. Values obtained with differentassay methods cannot be used interchangably.When changing PSA assays in the course of monitoring apatient, additional sequential testing should be carriedout to confirm baseline values. Platelets bldon 10-04-2021 Platelets (Bld) [#/Vol] 284 10*3/uL 150-450 [facility] Work Phone: Serum or plasma albumin elver urement (mass/volume)on 10-04-2021 Albumin [Mass/Vol] 4.3 g/dL 3.2-5.0 [facility] Work Phone: Serum or plasma albumin/glob ulin mass ratioon 10-04-2021 Albumin/Globulin [Mass ratio] 1.3 {ratio} 0.9-2.4 [facility] Work Phone: Serum or plasma calcium elver urement (mass/volume)on 10-04-2021 Calcium [Mass/Vol] 9.3 mg/dL 8.5-10.1 [facility] Work Phone: Serum or plasma creatinine m easurement (mass/volume)on 10-04-2021 Creatinine [Mass/Vol] 0.94 mg/dL 0.70-1.30 [facility] Work Phone: Comment on above: The validity of the calculated GFR & GFRAA in patients over 70 years has not been determined. Clinical correlation is essential. Serum or plasma urea nitroge n measurement (mass/volume)on 10-04-2021 Urea nitrogen [Mass/Vol] 22 mg/dL 7-18 [facility] Work Phone: Thin prep Papanicolaou smear with manual screeningon 10-04-2021 Thin prep Papanicolaou smear with manual screening 20 U/L 15-37 [facility] Work Phone: Thin prep Papanicolaou smear with manual screening 6 5-15 [facility] Work Phone: Laboratory - Microbiology an d Antimicrobial susceptibilityon 08-10-2021 SARS-CoV-2 (COVID-19) RNA CHARLES+probe Ql (Unsp spec) Not detected Not Detect [facility] Work Phone: Comment on above: Normal Reference [...] 08-10 Influenza Types A,B Direct FA ([facility]) [facility] Work Phone: Laboratory - Microbiology an d Antimicrobial susceptibilityon 07-29-2021 SARS-CoV-2 (COVID-19) RNA CHARLES+probe Ql (Unsp spec) Not detected Not Detect [facility] Work Phone: Comment on above: Normal Reference [...] Informationon 07-29 Influenza Types A,B Direct FA ([facility]) [facility] Work Phone: CNOVon 09-19-2017 CNOV Office Visit (AGCARDWST) JAR[facility] BATES ([id number]) 1955 [facility] Provider Department09/19/17 9:00 AM [...] - metBeta jey for ASHD with prior MA or prior LVEFANDlt;40 (NQF 0070) - N/ABeta [...] with treatment plan.This note was generated using Projectioneering voice recognition system, and there may besome [...] 06/16/2017 Added automatically from request for surgery [id number]- Impaired fasting glucose 07/15/2016- Myalgia and myositis, [...] [facility] SPECIMEN W/BX 07/06/10 gastritis- EGD W/O [facility] SPECIMEN W/BX 10/07/14 duodenitis, gastritis, esophagitis- EGD W/O [facility] SPECIMEN W/BX 09/13/2016 continued inflammation- HEMORRHOIDECT [...] Nochange is seen since 09/19/16.Electronically Signed:Lopez Cohen MDSoutheast [facility] 2017 9:33 [facility]:Kelly Hooker MD 09/19/2017 9:33 AM SignedLIFESTYLE CHANGEA healthy [...] programs in your area.Referring Provider: LOPEZ COHEN [[id number]]Allergies As of Date: 09/19/2017 Noted Allergy ReactionADHESIVE TAPE (ROSINS) 10/15/2014 9 - ItchingCONTRAST DYE 07/28/2009 Comments: possibleCORTISONE 06/16/2004 Comments: edema, erythema-?not sure of drug nameFD AND C BLUE NO.1 07/28/2009SERTRALINE 01/14/2004 Comments: zoloft, hot, elevated BPDate Reviewed: 09/19/2017Reviewed by: Edilia Lockhart - Fully AssessedReason for Visit: Follow Up [171]Primary Visit Diagnosis: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 EAT A WHOLE FOOD, PLANT BASED [...] Status:Closed by LOPEZ COHEN MD on 09/19/17 [facility] PROGRESSon 09-19-2017 PROGRESS HNO ID: [id number] thor: Lopez Valladares: (none)Author Type: PhysicianType: Progress NotesFiled: 09/19/2017 4:48 PMNote Text:PERTINENT CARDIAC HISTORYAHSD - CABGx3 2012HTNHLADHERENCE TO GUIDELINESACE-I or ARB for HF with prior LVEF<40 (NQF 0081) - N/AASA or Plavix for ASHD (NQF 0067) - metBeta jey for ASHD with prior MA or prior LVEF<40 (NQF 0070) - N/ABeta [...] with treatment plan.This note was generated using Projectioneering voice recognition system, and theremay be some [...] 09/04/2012- Calculus of gallbladder without cholecystitis without /2/2016- Chronic airway obstruction, not elsewhere classified- Diaphragmatic hernia without mention of obstruction or gangrene Hiatal hernia- Displacement of cervical intervertebral disc without myelopathy12/10/2003- Dysthymic disorder Depression (non-psychotic)- Generalized osteoarthrosis, unspecified site- GERD (gastroesophageal reflux disease) 06/28/2010- Hearing loss of both ears Wears hearing aids - bilateral- Hemorrhoids, internal 06/16/2017 Added automatically from request for surgery [id number]- Impaired fasting glucose 07/15/2016- Myalgia and myositis, [...] since 09/19/16.Electronically Signed:Lopez Cohen MDFebruary 2017 9:33 [facility]:Jose Luis Lopez MD Normal [facility] Culture, urine Bacteria identified Cx Nom (U) Culture exhibits no growth. [facility] Work Phone: Vital Signs Date Time Vital Sign Value Performing Clinician Facility 02-25-2025 09:16-0400 Body height 177.[address] Marshall Bear MD Work Phone: [facility] 02-25-2025 09:16-0400 Body mass index (BMI) [Ratio] 27.3 kg/m2 Dr. Marshall Bear MD Work Phone: [facility] 02-25-2025 09:16-0400 Body weight 86.[address] Marshall Bear MD Work Phone: [facility] 02-25-2025 09:16-0400 Diastolic blood pressure 82 mm[Hg] Dr. Marshall Bear MD Work Phone: [facility] 02-25-2025 09:16-0400 Heart rate 56 /min Dr. Marshall Bear MD Work Phone: [facility] 02-25-2025 09:16-0400 Respiratory rate 16 /min Dr. Marshall Bear MD Work Phone: [facility] 02-25-2025 09:16-0400 Systolic blood pressure 138 mm[Hg] Dr. Marshall Bear MD Work Phone: [facility] 01-27-2025 11:26-0400 Diastolic blood pressure 93 mm[Hg] Dr. Marshall Bear MD Work Phone: [facility] 01-27-2025 11:26-0400 Heart rate 74 /min Dr. Marshall Bear MD Work Phone: [facility] 01-27-2025 11:26-0400 Systolic blood pressure 143 mm[Hg] Dr. Marshall Bear MD Work Phone: [facility] 01-27-2025 10:47-0400 Body height 177.[address] Marshall Bear MD Work Phone: [facility] 01-27-2025 10:47-0400 Body mass index (BMI) [Ratio] 27.4 kg/m2 Dr. Marshall Bear MD Work Phone: [facility] 01-27-2025 10:47-0400 Body temperature 98.2 [degF] Dr. Marshall Bear MD Work Phone: [facility] 01-27-2025 10:47-0400 Body weight 86.[address] Marshall Bear MD Work Phone: [facility] 01-27-2025 10:47-0400 Diastolic blood pressure 78 mm[Hg] Dr. Marshall Bear MD Work Phone: [facility] 01-27-2025 10:47-0400 Heart rate 69 /min Dr. Marshall Bear MD Work Phone: [facility] 01-27-2025 10:47-0400 Respiratory rate 16 /min Dr. Marshall Bear MD Work Phone: [facility] 01-27-2025 10:47-0400 SaO2% (BldA) [Mass fraction] 96 % Dr. Marshall Bear MD Work Phone: [facility] 01-27-2025 10:47-0400 Systolic blood pressure 128 mm[Hg] Dr. Marshall Bear MD Work Phone: [facility] 10-04-2024 09:52-0500 Body mass index (BMI) [Ratio] 26.6 kg/m2 Dr. Marshall Bear MD Work Phone: [facility] 10-04-2024 09:52-0500 Body temperature 98.4 [degF] Dr. Marshall Bear MD Work Phone: [facility] 10-04-2024 09:52-0500 Body weight 84.[address] Marshall Bear MD Work Phone: [facility] 10-04-2024 09:52-0500 Diastolic blood pressure 68 mm[Hg] Dr. Marshall Bear MD Work Phone: [facility] 10-04-2024 09:52-0500 Heart rate 77 /min Dr. Marshall Bear MD Work Phone: [facility] 10-04-2024 09:52-0500 Respiratory rate 15 /min Dr. Marshall Bear MD Work Phone: [facility] 10-04-2024 09:52-0500 SaO2% (BldA) [Mass fraction] 98 % Dr. Marshall Bear MD Work Phone: [facility] 10-04-2024 09:52-0500 Systolic blood pressure 114 mm[Hg] Dr. Marshall Bear MD Work Phone: [facility] 12-12-2023 12:46-0400 Body temperature 98 [degF] Dr. Marshall Bear Work Phone: [facility] 12-12-2023 12:46-0400 Diastolic blood pressure 106 mm[Hg] Dr. Marshall Bear Work Phone: [facility] 12-12-2023 12:46-0400 Heart rate 74 /min Dr. Marshall Bear Work Phone: [facility] 12-12-2023 12:46-0400 Respiratory rate 16 /min Dr. Marshall Bear Work Phone: [facility] 12-12-2023 12:46-0400 SaO2% (BldA) [Mass fraction] 97 % Dr. Marshall Bear Work Phone: [facility] 12-12-2023 12:46-0400 Systolic blood pressure 149 mm[Hg] Dr. Marshall Bear Work Phone: [facility] 12-10-2023 01:00-0400 Body height 177.[address] Marshall Bear Work Phone: [facility] 12-10-2023 01:00-0400 Body mass index (BMI) [Ratio] 24.7 kg/m2 Dr. Marshall Bear Work Phone: [facility] 12-10-2023 01:00-0400 Body weight 78.[address] Marshall Bear Work Phone: [facility] 11-08-2023 13:12-0400 Body height 177.[address] Marshall Bear Work Phone: [facility] 11-08-2023 13:12-0400 Body mass index (BMI) [Ratio] 26.7 kg/m2 Dr. Marshall Bear Work Phone: [facility] 11-08-2023 13:12-0400 Body temperature 98.2 [degF] Dr. Marshall Bear Work Phone: [facility] 11-08-2023 13:12-0400 Body weight 84.[address] Marshall Bear Work Phone: [facility] 11-08-2023 13:12-0400 Diastolic blood pressure 92 mm[Hg] Dr. Marshall Bear Work Phone: [facility] 11-08-2023 13:12-0400 Heart rate 89 /min Dr. Marshall Bear Work Phone: [facility] 11-08-2023 13:12-0400 Respiratory rate 18 /min Dr. Marshall Bear Work Phone: [facility] 11-08-2023 13:12-0400 SaO2% (BldA) [Mass fraction] 95 % Dr. Marshall Bear Work Phone: [facility] 11-08-2023 13:12-0400 Systolic blood pressure 145 mm[Hg] Dr. Marshall Bear Work Phone: [facility] 11-01-2023 14:21-0400 Body temperature 97.7 [degF] Dr. Marshall Bear Work Phone: [facility] 11-01-2023 14:21-0400 Diastolic blood pressure 86 mm[Hg] Dr. Marshall Bear Work Phone: [facility] 11-01-2023 14:21-0400 Heart rate 74 /min Dr. Marshall Bear Work Phone: [facility] 11-01-2023 14:21-0400 Respiratory rate 16 /min Dr. Marshall Bear Work Phone: [facility] 11-01-2023 14:21-0400 SaO2% (BldA) [Mass fraction] 99 % Dr. Marshall Bear Work Phone: [facility] 11-01-2023 14:21-0400 Systolic blood pressure 135 mm[Hg] Dr. Marshall Bear Work Phone: [facility] 11-01-2023 11:05-0400 Body height 177.[address] Marshall Bear Work Phone: [facility] 11-01-2023 11:05-0400 Body mass index (BMI) [Ratio] 26.9 kg/m2 Dr. Marshall Bear Work Phone: [facility] 11-01-2023 11:05-0400 Body weight 85.[address] Marshall Bear Work Phone: [facility] 10-26-2023 17:06-0400 Body mass index (BMI) [Ratio] 26.4 kg/m2 Dr. Marshall Bear Work Phone: [facility] 10-26-2023 14:45-0400 Body temperature 98.1 [degF] Dr. Marshall Bear Work Phone: [facility] 10-26-2023 14:45-0400 Diastolic blood pressure 67 mm[Hg] Dr. Marshall Bear Work Phone: [facility] 10-26-2023 14:45-0400 Heart rate 96 /min Dr. Marshall Bear Work Phone: [facility] 10-26-2023 14:45-0400 Respiratory rate 18 /min Dr. Marshall Bear Work Phone: [facility] 10-26-2023 14:45-0400 SaO2% (BldA) [Mass fraction] 97 % Dr. Marshall Bear Work Phone: [facility] 10-26-2023 14:45-0400 Systolic blood pressure 109 mm[Hg] Dr. Marshall Bear Work Phone: [facility] 10-26-2023 04:18-0400 Body weight 83.[address] Marshall Bear Work Phone: [facility] 10-22-2023 16:51-0400 Body height 177.[address] Marshall Bear Work Phone: [facility] 10-21-2023 19:50-0500 Body temperature 97.6 [degF] Dr. Marshall Bear Work Phone: [facility] 10-21-2023 19:50-0500 Diastolic blood pressure 75 mm[Hg] Dr. Marshall Bear Work Phone: [facility] 10-21-2023 19:50-0500 Heart rate 78 /min Dr. Marshall Bear Work Phone: [facility] 10-21-2023 19:50-0500 Respiratory rate 21 /min Dr. Marshall Bear Work Phone: [facility] 10-21-2023 19:50-0500 SaO2% (BldA) [Mass fraction] 95 % Dr. Marshall Bear Work Phone: [facility] 10-21-2023 19:50-0500 Systolic blood pressure 135 mm[Hg] Dr. Marshall Bear Work Phone: [facility] 10-21-2023 18:18-0500 Body height 177.[address] Marshall Bear Work Phone: [facility] 10-21-2023 18:18-0500 Body mass index (BMI) [Ratio] 27.1 kg/m2 Dr. Marshall Bear Work Phone: [facility] 10-21-2023 18:18-0500 Body weight 85.[address] Marshall Bear Work Phone: [facility] 10-11-2023 09:18-0500 Diastolic blood pressure 72 mm[Hg] Ben Marshall MD Work Phone: [facility] 10-11-2023 09:18-0500 Heart rate 82 /min Ben Marshall MD Work Phone: [facility] 10-11-2023 09:18-0500 Respiratory rate 16 /min Ben Marshall MD Work Phone: [facility] 10-11-2023 09:18-0500 SaO2% (BldA) [Mass fraction] 97 % Ben Marshall MD Work Phone: [facility] 10-11-2023 09:18-0500 Systolic blood pressure 108 mm[Hg] Ben Marshall MD Work Phone: [facility] 10-11-2023 08:08-0500 Body temperature 97.81 [degF] Ben Marshall MD Work Phone: [facility] 10-11-2023 08:08-0500 Body weight 96.6 kg Ben Marshall MD Work Phone: [facility] 10-01-2023 18:44-0500 Body temperature 97.7 [degF] Dr. Marshall Bear Work Phone: [facility] 10-01-2023 18:44-0500 Diastolic blood pressure 93 mm[Hg] Dr. Marshall Bear Work Phone: [facility] 10-01-2023 18:44-0500 Heart rate 110 /min Dr. Marshall Bear Work Phone: [facility] 10-01-2023 18:44-0500 Respiratory rate 18 /min Dr. Marshall Bear Work Phone: [facility] 10-01-2023 18:44-0500 SaO2% (BldA) [Mass fraction] 97 % Dr. Marshall Bear Work Phone: [facility] 10-01-2023 18:44-0500 Systolic blood pressure 130 mm[Hg] Dr. Marshall Bear Work Phone: [facility] 10-01-2023 15:42-0500 Body mass index (BMI) [Ratio] 27.3 kg/m2 Dr. Marshall Bear Work Phone: [facility] 10-01-2023 15:42-0500 Body weight 86.[address] Marshall Bear Work Phone: [facility] 10-01-2023 15:01-0500 Body height 177.[address] Marshall Bear Work Phone: [facility] 09-27-2023 08:08-0500 Body mass index (BMI) [Ratio] 27.7 kg/m2 Dr. Marshall Bear Work Phone: [facility] 09-27-2023 08:08-0500 Body temperature 97.8 [degF] Dr. Marshall Bear Work Phone: [facility] 09-27-2023 08:08-0500 Body weight 87.[address] Marshall Bear Work Phone: [facility] 09-27-2023 08:08-0500 Diastolic blood pressure 78 mm[Hg] Dr. Marshall Bear Work Phone: [facility] 09-27-2023 08:08-0500 Heart rate 90 /min Dr. Marshall Bear Work Phone: [facility] 09-27-2023 08:08-0500 Respiratory rate 18 /min Dr. Marshall Bear Work Phone: [facility] 09-27-2023 08:08-0500 SaO2% (BldA) [Mass fraction] 97 % Dr. Marshall Bear Work Phone: [facility] 09-27-2023 08:08-0500 Systolic blood pressure 120 mm[Hg] Dr. Marshall Bear Work Phone: [facility] 09-26-2023 07:59-0500 Body mass index (BMI) [Ratio] 27.7 kg/m2 Dr. Marshall Bear Work Phone: [facility] 09-26-2023 07:59-0500 Body temperature 97.8 [degF] Dr. Marshall Bear Work Phone: [facility] 09-26-2023 07:59-0500 Body weight 87.[address] Marshall Bear Work Phone: [facility] 09-26-2023 07:59-0500 Diastolic blood pressure 82 mm[Hg] Dr. Marshall Bear Work Phone: [facility] 09-26-2023 07:59-0500 Heart rate 102 /min Dr. Marshall Bear Work Phone: [facility] 09-26-2023 07:59-0500 Respiratory rate 17 /min Dr. Marshall Bear Work Phone: [facility] 09-26-2023 07:59-0500 SaO2% (BldA) [Mass fraction] 97 % Dr. Marshall Bear Work Phone: [facility] 09-26-2023 07:59-0500 Systolic blood pressure 122 mm[Hg] Dr. Marshall Bear Work Phone: [facility] 08-21-2023 13:06-0500 Body height 177.[address] Marshall Bear Work Phone: [facility] 08-21-2023 13:06-0500 Body mass index (BMI) [Ratio] 29.9 kg/m2 Dr. Marshall Bear Work Phone: [facility] 08-21-2023 13:06-0500 Body temperature 98.3 [degF] Dr. Marshall Bear Work Phone: [facility] 08-21-2023 13:06-0500 Body weight 94.[address] Marshall Bear Work Phone: [facility] 08-21-2023 13:06-0500 Diastolic blood pressure 84 mm[Hg] Dr. Marshall Bear Work Phone: [facility] 08-21-2023 13:06-0500 Heart rate 71 /min Dr. Marshall Bear Work Phone: [facility] 08-21-2023 13:06-0500 Respiratory rate 16 /min Dr. Marshall Bear Work Phone: [facility] 08-21-2023 13:06-0500 SaO2% (BldA) [Mass fraction] 94 % Dr. Marshall Bear Work Phone: [facility] 08-21-2023 13:06-0500 Systolic blood pressure 135 mm[Hg] Dr. Marshall Bear Work Phone: [facility] 08-14-2023 19:40-0500 Diastolic blood pressure 68 mm[Hg] Dr. Marshall Bear Work Phone: [facility] 08-14-2023 19:40-0500 Heart rate 65 /min Dr. Marshall Bear Work Phone: [facility] 08-14-2023 19:40-0500 Respiratory rate 17 /min Dr. Marshall Bear Work Phone: [facility] 08-14-2023 19:40-0500 SaO2% (BldA) [Mass fraction] 93 % Dr. Marshall Bear Work Phone: [facility] 08-14-2023 19:40-0500 Systolic blood pressure 125 mm[Hg] Dr. Marshall Bear Work Phone: [facility] 08-14-2023 17:40-0500 Body temperature 98.4 [degF] Dr. Marshall Bear Work Phone: [facility] 08-14-2023 15:31-0500 Body height 177.[address] Marshall Bear Work Phone: [facility] 08-14-2023 15:31-0500 Body mass index (BMI) [Ratio] 31.2 kg/m2 Dr. Marshall Bear Work Phone: [facility] 08-14-2023 15:31-0500 Body weight 98.[address] Marshall Bear Work Phone: [facility] 08-04-2023 17:57-0500 Body height 177.[address] Marshall Bear Work Phone: [facility] 08-04-2023 17:57-0500 Body mass index (BMI) [Ratio] 30.4 kg/m2 Dr. Marshall Bear Work Phone: [facility] 08-04-2023 17:57-0500 Body temperature 97 [degF] Dr. Marshall Bear Work Phone: [facility] 08-04-2023 17:57-0500 Body weight 96.[address] Marshall Bear Work Phone: [facility] 08-04-2023 17:57-0500 Diastolic blood pressure 90 mm[Hg] Dr. Marshall Bear Work Phone: [facility] 08-04-2023 17:57-0500 Heart rate 108 /min Dr. Marshall Bear Work Phone: [facility] 08-04-2023 17:57-0500 Respiratory rate 16 /min Dr. Marshall Bear Work Phone: [facility] 08-04-2023 17:57-0500 SaO2% (BldA) [Mass fraction] 98 % Dr. Marshall Bear Work Phone: [facility] 08-04-2023 17:57-0500 Systolic blood pressure 153 mm[Hg] Dr. Marshall Bear Work Phone: [facility] 07-20-2023 13:22-0500 Body temperature 98 [degF] Dr. Marshall Bear Work Phone: [facility] 07-20-2023 13:22-0500 Diastolic blood pressure 88 mm[Hg] Dr. Marshall Bear Work Phone: [facility] 07-20-2023 13:22-0500 Heart rate 79 /min Dr. Marshall Bear Work Phone: [facility] 07-20-2023 13:22-0500 Respiratory rate 18 /min Dr. Marshall Bear Work Phone: [facility] 07-20-2023 13:22-0500 SaO2% (BldA) [Mass fraction] 94 % Dr. Marshall Bear Work Phone: [facility] 07-20-2023 13:22-0500 Systolic blood pressure 134 mm[Hg] Dr. Marshall Bear Work Phone: [facility] 07-18-2023 12:34-0500 Body height 177.[address] Marshall Bear Work Phone: [facility] 07-18-2023 12:34-0500 Body mass index (BMI) [Ratio] 31.4 kg/m2 Dr. Marshall Bear Work Phone: [facility] 07-18-2023 12:34-0500 Body weight 99.[address] Marshall Bear Work Phone: [facility] 07-18-2023 12:22-0500 Inhaled oxygen flow rate 4 L/min Dr. Marshall Bear Work Phone: [facility] 05-19-2023 13:35-0400 Body height 177.[address] Marshall Bear Work Phone: [facility] 05-19-2023 13:35-0400 Body mass index (BMI) [Ratio] 30.4 kg/m2 Dr. Marshall Bear Work Phone: [facility] 05-19-2023 13:35-0400 Body temperature 98.2 [degF] Dr. Marshall Bear Work Phone: [facility] 05-19-2023 13:35-0400 Body weight 96.[address] Marshall Bear Work Phone: [facility] 05-19-2023 13:35-0400 Diastolic blood pressure 94 mm[Hg] Dr. Marshall Bear Work Phone: [facility] 05-19-2023 13:35-0400 Heart rate 82 /min Dr. Marshall Bear Work Phone: [facility] 05-19-2023 13:35-0400 Respiratory rate 16 /min Dr. Marshall Bear Work Phone: [facility] 05-19-2023 13:35-0400 SaO2% (BldA) [Mass fraction] 95 % Dr. Marshall Bear Work Phone: [facility] 05-19-2023 13:35-0400 Systolic blood pressure 138 mm[Hg] Dr. Marshall Bear Work Phone: [facility] 05-15-2023 12:40-0400 Body temperature 97.5 [degF] Dr. Marshall Bear Work Phone: [facility] 05-15-2023 12:40-0400 Diastolic blood pressure 91 mm[Hg] Dr. Marshall Bear Work Phone: [facility] 05-15-2023 12:40-0400 Heart rate 65 /min Dr. Marshall Bear Work Phone: [facility] 05-15-2023 12:40-0400 Respiratory rate 18 /min Dr. Marshall Bear Work Phone: [facility] 05-15-2023 12:40-0400 SaO2% (BldA) [Mass fraction] 99 % Dr. Marshall Bear Work Phone: [facility] 05-15-2023 12:40-0400 Systolic blood pressure 157 mm[Hg] Dr. Marshall Bear Work Phone: [facility] 05-15-2023 10:42-0400 Body height 177.[address] Marshall Bear Work Phone: [facility] 05-15-2023 10:42-0400 Body mass index (BMI) [Ratio] 31.1 kg/m2 Dr. Marshall Bear Work Phone: [facility] 05-15-2023 10:42-0400 Body weight 98.[address] Marshall Bear Work Phone: [facility] 05-11-2023 22:03-0400 Diastolic blood pressure 76 mm[Hg] Dr. Marshall Bear Work Phone: [facility] 05-11-2023 22:03-0400 Heart rate 93 /min Dr. Marshall Bear Work Phone: [facility] 05-11-2023 22:03-0400 Respiratory rate 18 /min Dr. Marshall Bear Work Phone: [facility] 05-11-2023 22:03-0400 SaO2% (BldA) [Mass fraction] 95 % Dr. Marshall Bear Work Phone: [facility] 05-11-2023 22:03-0400 Systolic blood pressure 129 mm[Hg] Dr. Marshall Bear Work Phone: [facility] 05-11-2023 17:57-0400 Body mass index (BMI) [Ratio] 31.7 kg/m2 Dr. Marshall Bera Work Phone: [facility] 05-11-2023 17:57-0400 Body temperature 97.1 [degF] Dr. Marshall Bear Work Phone: [facility] 05-11-2023 17:57-0400 Body weight 100.[address] Marshall Bear Work Phone: [facility] 05-11-2023 14:28-0400 Body mass index (BMI) [Ratio] 31.4 kg/m2 Dr. Marshall Bear Work Phone: [facility] 05-11-2023 14:28-0400 Body temperature 98.1 [degF] Dr. Marshall Bear Work Phone: [facility] 05-11-2023 14:28-0400 Body weight 99.[address] Marshall Bear Work Phone: [facility] 05-11-2023 14:28-0400 Diastolic blood pressure 83 mm[Hg] Dr. Marshall Bear Work Phone: [facility] 05-11-2023 14:28-0400 Heart rate 77 /min Dr. Marshall Bear Work Phone: [facility] 05-11-2023 14:28-0400 Respiratory rate 18 /min Dr. Marshall Bear Work Phone: [facility] 05-11-2023 14:28-0400 SaO2% (BldA) [Mass fraction] 94 % Dr. Marshall Bear Work Phone: [facility] 05-11-2023 14:28-0400 Systolic blood pressure 132 mm[Hg] Dr. Marshall Bear Work Phone: [facility] 05-10-2023 04:24-0400 Diastolic blood pressure 91 mm[Hg] Dr. Marshall Bear Work Phone: [facility] 05-10-2023 04:24-0400 Heart rate 73 /min Dr. Marshall Bear Work Phone: [facility] 05-10-2023 04:24-0400 Respiratory rate 15 /min Dr. Marshall Bear Work Phone: [facility] 05-10-2023 04:24-0400 SaO2% (BldA) [Mass fraction] 96 % Dr. Marshall Bear Work Phone: [facility] 05-10-2023 04:24-0400 Systolic blood pressure 166 mm[Hg] Dr. Marshall Bear Work Phone: [facility] 05-10-2023 03:09-0400 Body mass index (BMI) [Ratio] 32 kg/m2 Dr. Marshall Bear Work Phone: [facility] 05-10-2023 03:09-0400 Body temperature 98 [degF] Dr. Marshall Bear Work Phone: [facility] 05-10-2023 03:09-0400 Body weight 101.[address] Marshall Bear Work Phone: [facility] 12-20-2022 06:28-0400 Body height 177.8 cm MD Marshall Bear [facility] 12-20-2022 06:28-0400 Body mass index (BMI) [Ratio] 30.7 kg/m2 MD Marshall Bear [facility] 12-20-2022 06:28-0400 Body temperature 98.2 [degF] MD Marshall Bear [facility] 12-20-2022 06:28-0400 Body weight 97.29 kg MD Marshall Bear [facility] 12-20-2022 06:28-0400 Diastolic blood pressure 74 mm[Hg] MD Marshall Bear [facility] 12-20-2022 06:28-0400 Heart rate 72 /min MD Marshall Bear [facility] 12-20-2022 06:28-0400 Respiratory rate 16 /min MD Marshall Bear [facility] 12-20-2022 06:28-0400 SaO2% (BldA) [Mass fraction] 97 % MD Marshall Bear [facility] 12-20-2022 06:28-0400 Systolic blood pressure 140 mm[Hg] MD Marshall Bear [facility] 12-16-2022 10:04-0400 Body mass index (BMI) [Ratio] 30.8 kg/m2 MD Marshall Bear [facility] 12-16-2022 10:04-0400 Body weight 97.52 kg MD Marshall Bear [facility] 12-16-2022 10:04-0400 Diastolic blood pressure 87 mm[Hg] MD Marshall Bear [facility] 12-16-2022 10:04-0400 Heart rate 72 /min MD Marshall Bear [facility] 12-16-2022 10:04-0400 Respiratory rate 16 /min MD Marshall Bear [facility] 12-16-2022 10:04-0400 Systolic blood pressure 137 mm[Hg] MD Marshall Bear [facility] 11-18-2022 09:25-0400 Body height 177.8 cm Edilia Hunter PA-C Work Phone: [facility] 11-18-2022 09:25-0400 Body temperature 98.01 [degF] Edilia Hunter PA-C Work Phone: [facility] 11-18-2022 09:25-0400 Body weight 96.62 kg Edilia Titi PA-C Work Phone: [facility] 11-18-2022 09:25-0400 Diastolic blood pressure 78 mm[Hg] Edilia Titi PA-C Work Phone: [facility] 11-18-2022 09:25-0400 Heart rate 89 /min Edilia Akiachak PA-C Work Phone: [facility] 11-18-2022 09:25-0400 SaO2% (BldA) [Mass fraction] 95 % Edilia Titi PA-C Work Phone: [facility] 11-18-2022 09:25-0400 Systolic blood pressure 140 mm[Hg] Edilia Titi PA-C Work Phone: [facility] 11-14-2022 15:04-0400 Diastolic blood pressure 72 mm[Hg] MD Marshall Bear [facility] 11-14-2022 15:04-0400 Heart rate 78 /min MD Marshall Bear [facility] 11-14-2022 15:04-0400 Respiratory rate 16 /min MD Marshall Bear [facility] 11-14-2022 15:04-0400 SaO2% (BldA) [Mass fraction] 96 % MD Marshall Bear [facility] 11-14-2022 15:04-0400 Systolic blood pressure 136 mm[Hg] MD Marshall Bear [facility] 11-14-2022 11:20-0400 Body height 178 cm MD Marshall Bear [facility] 11-14-2022 11:20-0400 Body mass index (BMI) [Ratio] 25.5 kg/m2 MD Marshall Bear [facility] 11-14-2022 11:20-0400 Body temperature 98.1 [degF] MD Marshall Bear [facility] 11-14-2022 11:20-0400 Body weight 80.9 kg MD Marshall Bear [facility] 11-04-2022 11:02-0400 Body height 177.8 cm Pacc 1 Work Phone: [facility] 11-04-2022 11:02-0400 Body temperature 98.2 [degF] Pacc 1 Work Phone: [facility] 11-04-2022 11:02-0400 Body weight 99.34 kg Pacc 1 Work Phone: [facility] 11-04-2022 11:02-0400 Diastolic blood pressure 82 mm[Hg] Pacc 1 Work Phone: [facility] 11-04-2022 11:02-0400 Heart rate 69 /min Pacc 1 Work Phone: [facility] 11-04-2022 11:02-0400 Respiratory rate 14 /min Pacc 1 Work Phone: [facility] 11-04-2022 11:02-0400 SaO2% (BldA) [Mass fraction] 97 % Pacc 1 Work Phone: [facility] 11-04-2022 11:02-0400 Systolic blood pressure 132 mm[Hg] Pacc 1 Work Phone: [facility] 10-27-2022 09:05-0400 Body temperature 97.5 [degF] MD Marshall Bear [facility] 10-27-2022 09:05-0400 Body weight 101.6 kg MD Marshall Bear [facility] 10-27-2022 09:05-0400 Diastolic blood pressure 80 mm[Hg] MD Marshall Bear [facility] 10-27-2022 09:05-0400 Heart rate 63 /min MD Marshall Bear [facility] 10-27-2022 09:05-0400 Respiratory rate 16 /min MD Marshall Bear [facility] 10-27-2022 09:05-0400 SaO2% (BldA) [Mass fraction] 94 % MD Marshall Bear [facility] 10-27-2022 09:05-0400 Systolic blood pressure 134 mm[Hg] MD Marshall Bear [facility] 10-20-2022 08:49-0500 Body height 177.8 cm Jose Juan Pena MD Work Phone: [facility] 10-20-2022 08:49-0500 Body temperature 97.9 [degF] Jose Juan Pena MD Work Phone: [facility] 10-20-2022 08:49-0500 Body weight 100.25 kg Jose Juan Pena MD Work Phone: [facility] 10-20-2022 08:49-0500 Diastolic blood pressure 78 mm[Hg] Jose Juan Pena MD Work Phone: [facility] 10-20-2022 08:49-0500 Heart rate 80 /min Jose Juan Pena MD Work Phone: [facility] 10-20-2022 08:49-0500 Respiratory rate 12 /min Jose Juan Pena MD Work Phone: [facility] 10-20-2022 08:49-0500 SaO2% (BldA) [Mass fraction] 96 % Jose Juan Pena MD Work Phone: [facility] 10-20-2022 08:49-0500 Systolic blood pressure 122 mm[Hg] Jose Juan Pena MD Work Phone: [facility] 10-07-2022 15:25-0500 Body temperature 97.9 [degF] Edilia Titi PA-C Work Phone: [facility] 10-07-2022 15:25-0500 Diastolic blood pressure 88 mm[Hg] Edilia Titi PA-C Work Phone: [facility] 10-07-2022 15:25-0500 Heart rate 82 /min Edilia Akiachak PA-C Work Phone: [facility] 10-07-2022 15:25-0500 SaO2% (BldA) [Mass fraction] 95 % Edilia Titi PA-C Work Phone: [facility] 10-07-2022 15:25-0500 Systolic blood pressure 112 mm[Hg] Edilia Hunter PA-C Work Phone: [facility] 09-27-2022 11:00-0500 Diastolic blood pressure 67 mm[Hg] Jose Juan Pena MD Work Phone: [facility] 09-27-2022 11:00-0500 Heart rate 67 /min Jose Juan Pena MD Work Phone: [facility] 09-27-2022 11:00-0500 Respiratory rate 16 /min Jose Juan Pena MD Work Phone: [facility] 09-27-2022 11:00-0500 SaO2% (BldA) [Mass fraction] 93 % Jose Juan Pena MD Work Phone: [facility] 09-27-2022 11:00-0500 Systolic blood pressure 149 mm[Hg] Jose Juan Pena MD Work Phone: [facility] 09-27-2022 07:58-0500 Body temperature 97.39 [degF] Jose Juan Pena MD Work Phone: [facility] 09-27-2022 07:58-0500 Body weight 100.1 kg Jose Juan Pena MD Work Phone: [facility] 09-12-2022 12:10-0500 Respiratory rate 16 /min MD Marshall Bear [facility] 09-12-2022 10:08-0500 Body height 177.8 cm MD Marshall Bear [facility] 09-12-2022 10:08-0500 Body mass index (BMI) [Ratio] 31.8 kg/m2 [facility] 10:08-0500 Body temperature 97.2 [degF] MD Marshall Bear [facility] 09-12-2022 10:08-0500 Body weight 100.69 kg MD Marshall Bear [facility] 09-12-2022 10:08-0500 Diastolic blood pressure 88 mm[Hg] [facility]-12-[facility]22 10:08-0500 Heart rate 71 /min MD Marshall Bear [facility] 09-12-2022 10:08-0500 SaO2% (BldA) [Mass fraction] 100 % Marshall [facility] 09-12-2022 10:08-0500 Systolic blood pressure 128 mm[Hg] Marshall [facility] 09-12-2022 09:02-0500 Body temperature 98.1 [degF] Marshall Chema [facility] 09-12-2022 09:02-0500 Body weight 100.[address] [facility] 09-12-2022 09:02-0500 Diastolic blood pressure 80 mm[Hg] Marshall [facility] 09-12-2022 09:02-0500 Heart rate 73 /min Marshall [facility] 09-12-2022 09:02-0500 Respiratory rate 18 /min Marshall [facility] 09-12-2022 09:02-0500 SaO2% (BldA) [Mass fraction] 94 % Marshall [facility] 09-12-2022 09:02-0500 Systolic blood pressure 129 mm[Hg] Marshall [facility] 08-09-2022 13:11-0500 Body height 177.8 cm Edilia Akiachak PA-C Work Phone: [facility] 08-09-2022 13:11-0500 Body temperature 97.2 [degF] Edilia Titi PA-C Work Phone: [facility] 08-09-2022 13:11-0500 Body weight 100.06 kg Edilia Titi PA-C Work Phone: [facility] 08-09-2022 13:11-0500 Diastolic blood pressure 76 mm[Hg] Edilia Titi PA-C Work Phone: [facility] 08-09-2022 13:11-0500 Heart rate 82 /min Edilia Akiachak PA-C Work Phone: [facility] 08-09-2022 13:11-0500 SaO2% (BldA) [Mass fraction] 97 % Edilia Graf MULTANI Work Phone: [facility] 08-09-2022 13:11-0500 Systolic blood pressure 108 mm[Hg] Edilia PA-C Work Phone: [facility] 08-02-2022 13:35-0500 Body mass index (BMI) [Ratio] 31.1 kg/m2 Marshall [facility] 08-02-2022 13:35-0500 Body temperature 97.5 [degF] Marshall [facility] 08-02-2022 13:35-0500 Body weight 98.[address] [facility] 08-02-2022 13:35-0500 Diastolic blood pressure 78 mm[Hg] Marshall [facility] 08-02-2022 13:35-0500 Heart rate 66 /min Marshall [facility] 08-02-2022 13:35-0500 SaO2% (BldA) [Mass fraction] 98 % Marshall [facility] 08-02-2022 13:35-0500 Systolic blood pressure 124 mm[Hg] Marshall [facility] 06-20-2022 10:30-0500 Body temperature 98.6 [degF] Marshall Chema [facility] 06-20-2022 10:30-0500 Diastolic blood pressure 81 mm[Hg] [facility] [facility] 06-20-2022 10:30-0500 Heart rate 60 /min [facility] 06-20-2022 10:30-0500 Respiratory rate 16 /min Marshall [facility] 06-20-2022 10:30-0500 SaO2% (BldA) [Mass fraction] 93 % Marshall [facility] 06-20-2022 10:30-0500 Systolic blood pressure 123 mm[Hg] [facility] 06-20-2022 09:38-0500 Body height 177.8 cm [facility] 06-20-2022 09:38-0500 Body mass index (BMI) [Ratio] 31.3 kg/m2 [facility] 06-20-2022 09:38-0500 Body weight [address] [facility] 04-21-2022 08:29-0400 Body temperature 98.4 [degF] Marshall [facility] Work Phone: 04-21-2022 08:29-0400 Body weight 99.[address] [facility] Work Phone: 04-21-2022 08:29-0400 Diastolic blood pressure 86 mm[Hg] Marshall [facility] Work Phone: 04-21-2022 08:29-0400 Heart rate 72 /min [facility] Work Phone: 04-21-2022 08:29-0400 Respiratory rate 16 /min Marshall [facility] Work Phone: 04-21-2022 08:29-0400 SaO2% (BldA) [Mass fraction] 96 % MD Gee [facility] Work Phone: 04-21-2022 08:29-0400 Systolic blood pressure 142 mm[Hg] Marshall [facility] Work Phone: 03-24-2022 09:33-0400 Body height 177.[address] [facility] Work Phone: 03-24-2022 09:33-0400 Body mass index (BMI) [Ratio] 30.5 kg/m2 Marshall [facility] Work Phone: 03-24-2022 09:33-0400 Body temperature 98.7 [degF] Marshallstefany Bear [facility] Work Phone: 03-24-2022 09:33-0400 Body weight 96.61 kg Marshallstefany Bear [facility] Work Phone: 03-24-2022 09:33-0400 Diastolic blood pressure 78 mm[Hg] [facility] Work [facility]: 03-24-2022 09:33-0400 Heart rate 76 /min [facility] 03-24-2022 09:33-0400 Respiratory rate 14 /min MD Gee Chema [facility] Work Phone: 03-24-2022 09:33-0400 SaO2% (BldA) [Mass fraction] 99 % MD Gee [facility] Work Phone: 03-24-2022 09:33-0400 Systolic blood pressure 126 mm[Hg] Marshall [facility] Work Phone: 03-22-2022 06:49-0400 Body temperature 97.8 [degF] Marshall [facility] Work Phone: 03-22-2022 06:49-0400 Diastolic blood pressure 70 mm[Hg] [facility] Work [facility]: 03-22-2022 06:49-0400 Heart rate 81 /min MD Marshall Bear [facility] Work Phone: 03-22-2022 06:49-0400 Respiratory rate 15 /min Marshallstefany [facility] Work Phone: 03-22-2022 06:49-0400 SaO2% (BldA) [Mass fraction] 99 % [facility] Work Phone: 03-22-2022 06:49-0400 Systolic blood pressure 118 mm[Hg] MD Marshall Bear [facility] Work Phone: 03-09-2022 14:57-0400 Body mass index (BMI) [Ratio] 30.5 kg/m2 [facility] Work Phone: 03-09-2022 14:57-0400 Body weight 96.61 kg Marshallstefany Bear [facility] Work Phone: 03-01-2022 13:16-0400 Body temperature 97.6 [degF] Marshall [facility] Work Phone: 03-01-2022 13:16-0400 Diastolic blood pressure 84 mm[Hg] Marshall [facility] Work Phone: 03-01-2022 13:16-0400 Heart rate 62 /min Marshall Chema [facility] Work Phone: 03-01-2022 13:16-0400 Respiratory rate 16 /min Marshall [facility] Work Phone: 03-01-2022 13:16-0400 SaO2% (BldA) [Mass fraction] 97 % Marshall [facility] Work Phone: 03-01-2022 13:16-0400 Systolic blood pressure 128 mm[Hg] MD [facility] Work Phone: 03-01-2022 10:13-0400 Body height 177.[address] [facility] Work Phone: 03-01-2022 10:13-0400 Body mass index (BMI) [Ratio] 30.7 kg/m2 Marshall [facility] Work Phone: 03-01-2022 10:13-0400 Body weight 97 kg MD Marshall Bear [facility] Work Phone: 10-04-2021 08:01-0500 Body height 177.[address] Weston Gutierrez Work Phone: [facility] Work Phone: 10-04-2021 08:01-0500 Body mass index (BMI) [Ratio] 30.8 kg/m2 Dr. Weston Gutierrez Work Phone: [facility] Work Phone: 10-04-2021 08:01-0500 Body temperature 96.8 [degF] Dr. Weston Gutierrez Work Phone: [facility] Work Phone: 10-04-2021 08:01-0500 Body weight 97.[address] Weston Gutierrez Work Phone: [facility] Work Phone: 10-04-2021 08:01-0500 Diastolic blood pressure 68 mm[Hg] Dr. Weston Gutierrez Work Phone: [facility] Work Phone: 10-04-2021 08:01-0500 Heart rate 78 /min Dr. Weston Gutierrez Work Phone: [facility] Work Phone: 10-04-2021 08:01-0500 Respiratory rate 16 /min Dr. Weston Gutierrez Work Phone: [facility] Work Phone: 10-04-2021 08:01-0500 SaO2% (BldA) [Mass fraction] 98 % Dr. Weston Gutierrez Work Phone: [facility] Work Phone: 10-04-2021 08:01-0500 Systolic blood pressure 120 mm[Hg] Dr. Weston Gutierrez Work Phone: [facility] Work Phone: 10-01-2021 09:24-0500 Body mass index (BMI) [Ratio] 30.7 kg/m2 Dr. Weston Gutierrez Work Phone: [facility] Work Phone: 10-01-2021 09:24-0500 Body weight 97.[address] Weston Gutierrez Work Phone: [facility] Work Phone: 10-01-2021 09:24-0500 Diastolic blood pressure 71 mm[Hg] Dr. Weston Gutierrez Work Phone: [facility] Work Phone: 10-01-2021 09:24-0500 Heart rate 70 /min Dr. Weston Gutierrez Work Phone: [facility] Work Phone: 10-01-2021 09:24-0500 Respiratory rate 18 /min Dr. Weston Gutierrez Work Phone: [facility] Work Phone: 10-01-2021 09:24-0500 Systolic blood pressure 121 mm[Hg] Dr. Weston Gutierrez Work Phone: [facility] Work Phone: Encounters Encounter Date Encounter Type Care Provider Facility Start: 03-21-2025 ambulatory [facility] Facility :[facility] Start: 03-06-2025 End: 03-06-[address] Marshall Bear MD Work Phone: -Laboratory Start: 03-06-2025 End: 03-06-[address] Juan Carlos Gagnon MD -Laboratory Work Phone: Start: 03-05-2025 ambulatory Marshall Bear Facility :[facility] Start: 03-05-2025 Registered Referred Rosa Maria STRONG -Cardiovascular Services Work Phone: Start: 03-05-2025 End: 03-06-[address] Marshall Bear MD Work Phone: [facility] Start: 03-05-2025 End: 03-05-[address] Tarik Wilkinson MD -[facility] Work Phone: Start: 03-05-2025 End: 03-05-2025 ambulatory Marshall Bear Facility:[facility] Start: 02-25-2025 End: 02-25-2025 Patient encounter procedure Rosa Maria Cuevas PA -[facility] Work Phone: Start: 02-25-2025 End: 02-25-[address] Marshall Bear MD Work Phone: -[facility] Start: 01-31-2025 End: 01-31-[address] Bjorn Bradshaw MD -[facility] Work Phone: Start: 01-31-2025 End: 01-31-[address] Marshall Bear MD Work Phone: [facility] Work Phone: Start: 01-28-2025 End: 01-28-[address] Marshall Bear MD Work Phone: [facility] Work Phone: Start: 01-28-2025 End: 01-28-[address] Marshall Bear MD -Laboratory [facility] Start: 01-27-2025 End: 01-27-[address] Marshall Bear MD -[facility] Work Phone: Start: 01-27-2025 End: 01-28-[address] Marshall Bear MD Work Phone: [facility] Work Phone: Start: 10-04-2024 End: 10-04-[address] Talat Church MD -[facility] Work Phone: Start: 10-04-2024 End: 10-04-2024 ambulatory Marshall Bear Facility:[facility] Start: 09-19-2024 End: 09-19-2024 ambulatory Marshall Bear Facility:[facility] Start: 09-19-2024 End: 09-19-2024 ambulatory Marshall Bear Facility:[facility] Start: 09-10-2024 End: 09-10-2024 ambulatory Marshall Bear Facility:[facility] Start: 08-09-2024 End: 08-09-2024 ambulatory Julio Daniel Facility:[facility] Start: 07-23-2024 End: 07-23-2024 ambulatory Marshall Bear Facility:[facility] Start: 07-18-2024 End: 07-19-2024 ambulatory Marshall Bear Facility:[facility] Start: 07-17-2024 [facility] Start: 07-02-2024 End: 07-02-2024 ambulatory Marshall Bear Facility:[facility] Start: 06-20-2024 ambulatory Marshall Bear Facility :[facility] Start: 06-20-2024 End: 06-20-2024 ambulatory [facility] Facility:[facility] Start: 05-30-2024 End: 05-30-2024 ambulatory Marshall Bear Facility:[facility] Start: 05-27-2024 End: 05-27-2024 ambulatory Marshall Bear Facility:[facility] Start: 05-16-2024 ambulatory Marshall Bear Facility :[facility] Start: 05-15-2024 End: 05-16-2024 ambulatory Marshall Bear Facility:[facility] Start: 04-29-2024 End: 04-29-2024 ambulatory Marshall Bear Facility:[facility] Start: 04-29-2024 End: 04-29-2024 ambulatory Marshall Bear Facility:[facility] Start: 04-24-2024 End: 04-24-2024 ambulatory Marshall Bear Facility:[facility] Start: 04-18-2024 End: 04-18-2024 ambulatory Marshall Bear Facility:[facility] Start: 04-16-2024 End: 04-16-2024 ambulatory Marshall Bear Facility:[facility] Start: 03-28-2024 End: 03-29-2024 ambulatory Marshall Bear Facility:[facility] Start: 03-17-2024 ambulatory Marshall Bear Facility :[facility] Start: 03-17-2024 End: 03-21-2024 Evaluation and management of inpatient Marshall Bear Facility:[facility] Start: 12-12-2023 Dr. Marshall Gates hner Work Phone: [facility] Work Phone: Start: 12-11-2023 Dr. Marshall Gates hner Work Phone: [facility] Work Phone: Start: 12-10-2023 End: 12-12-2023 Evaluation and management of inpatient Dr. Marshall Bear Work Phone: [facility] Work Phone: Start: 12-10-2023 End: 12-12-2023 Dr. Marshall Bear Work Phone: [facility]-Medical Surgical 3 Work Phone: Start: 11-27-2023 End: 12-12-[address] Marshall Bear Work Phone: [facility] Work Phone: Start: 11-27-2023 End: 12-12-2023 Dr. Marshall Bear Work Phone: [facility]-Laboratory, Specimen Work Phone: Start: 11-20-2023 End: 12-12-[address] Marshall Bear Work Phone: [facility] Work Phone: Start: 11-20-2023 End: 12-12-2023 Dr. Marshall Bear Work Phone: [facility]-Laboratory, Specimen Work Phone: Start: 11-10-2023 End: 11-11-[address] Marshall Bear Work Phone: [facility] Work Phone: Start: 11-10-2023 End: 11-11-2023 Dr. Marshall Bear Work Phone: [facility]-Home Health Lab Start: 11-09-2023 End: 11-11-[address] Marshall Bear Work Phone: [facility] Work Phone: Start: 11-09-2023 End: 11-11-2023 Dr. Marshall Bear Work Phone: [facility]-Home Health Lab Start: 11-08-2023 End: 11-08-2023 Dr. Marshall Bear Work Phone: [facility] Work Phone: Start: 11-07-2023 End: 11-07-[address] Marshall Bear Work Phone: [facility] Work Phone: Start: 11-07-2023 End: 11-07-2023 Dr. Marshall Bear Work Phone: [facility]-Medical Out Work Phone: Start: 11-06-2023 End: 11-12-[address] Marshall Bear Work Phone: [facility] Work Phone: Start: 11-06-2023 End: 11-12-2023 Dr. Marshall Bear Work Phone: [facility]-Laboratory, Specimen Work Phone: Start: 11-01-2023 Dr. Marshall Gates hner Work Phone: [facility] Start: 11-01-2023 End: 11-01-2023 Emergency department patient visit Dr. Marshall Bear Work Phone: [facility] Work Phone: Start: 11-01-2023 End: 11-01-2023 Dr. Marshall Bear Work Phone: [facility]-Emergency Department Work Phone: Start: 10-30-2023 End: 11-12-[address] Marshall Bear Work Phone: [facility] Work Phone: Start: 10-30-2023 End: 11-12-2023 Dr. Marshall Bear Work Phone: [facility]-Laboratory, Specimen Work Phone: Start: 10-26-2023 Dr. Marshall Gates hner Work Phone: [facility] Start: 10-25-2023 Dr. Marshall Gates hner Work Phone: [facility] Work Phone: Start: 10-25-2023 Dr. Marshall Gates hner Work Phone: [facility] Start: 10-24-2023 Dr. Marshall Gates hner Work Phone: [facility] Work Phone: Start: 10-23-2023 Dr. Marshall Gates hner Work Phone: [facility] Start: 10-23-2023 Dr. Marshall Gates hner Work Phone: [facility] Start: 10-23-2023 Dr. Marshall Gates hner Work Phone: [facility] Start: 10-22-2023 Dr. Marshall Gates hner Work Phone: [facility] Work Phone: Start: 10-21-2023 End: 10-26-2023 Evaluation and management of inpatient Dr. Marshall Bear Work Phone: [facility] Work Phone: Start: 10-21-2023 End: 10-26-2023 Dr. Marshall Bear Work Phone: [facility]-Progressive Care Unit Work Phone: Start: 10-16-2023 Dr. Marshall Gates hner Work Phone: [facility] Start: 10-11-2023 End: 10-11-[address] Marshall Bear Work Phone: [facility] Work Phone: Start: 10-11-2023 End: 10-11-2023 Dr. Marshall Bear Work Phone: [facility]-Laboratory, Specimen Work Phone: Start: 10-11-2023 End: 10-11-2023 Subsequent hospital visit by physician Ben Marshall MD Work Phone: Ambulatory Surgery Comment on above: Epigastric pain [R10 .13] Start: 10-06-2023 End: 10-06-[address] Marshall Bear Work Phone: [facility] Work Phone: Start: 10-06-2023 End: 10-06-2023 Dr. Marshall Bear Work Phone: [facility] Start: 10-01-2023 End: 10-01-2023 Emergency department patient visit Dr. Marshall Bear Work Phone: [facility] Work Phone: Start: 10-01-2023 End: 10-01-2023 Dr. Marshall Bear Work Phone: [facility]-Emergency Department Work Phone: Start: 09-28-2023 Orders Only Jose Juan richardson MD Work Phone: General Surgery Comment on above: Epigastric pain (Kesha dayron Dx) Start: 09-27-2023 End: 09-27-[address] Marshall Bear Work Phone: [facility] Work Phone: Start: 09-27-2023 End: 09-27-2023 Dr. Marshall Bear Work Phone: [facility] Work Phone: Start: 09-26-2023 End: 09-26-[address] Marshall Bear Work Phone: [facility] Work Phone: Start: 09-26-2023 End: 09-26-2023 Dr. Marshall Bear Work Phone: [facility]-Laboratory, Specimen Work Phone: Start: 09-26-2023 End: 09-26-2023 Dr. Marshall Bear Work Phone: [facility] Work Phone: Start: 09-13-2023 End: 09-13-2023 Dr. Marshall Bear Work Phone: [facility] Work Phone: Start: 08-24-2023 End: 08-24-[address] Marshall Bear Work Phone: [facility] Work Phone: Start: 08-24-2023 End: 08-24-2023 Dr. Marshall Bear Work Phone: [facility] Work Phone: Start: 08-21-2023 End: 08-21-[address] Marshall Bear Work Phone: [facility] Work Phone: Start: 08-21-2023 End: 08-21-[address] Marshall Bear Work Phone: [facility] [place] Work Phone: Start: 08-21-2023 End: 08-21-2023 Dr. Marshall Bear Work Phone: [facility] [place] Work Phone: Start: 08-17-2023 End: 08-17-[address] Marshall Bear Work Phone: [facility] Work Phone: Start: 08-17-2023 End: 08-17-2023 Dr. Marshall Bear Work Phone: [facility] Work Phone: Start: 08-14-2023 End: 08-14-2023 Emergency department patient [facility] Start: 08-14-2023 End: 08-14-2023 Dr. Marshall [facility] Start: 08-04-2023 End: 08-04-2023 Emergency department patient visit Dr. Marshall Bear Work Phone: [facility]-Emergency Department Work Phone: Start: 08-04-2023 End: 08-04-2023 Dr. Marshall Bear Work Phone: [facility]-Emergency Department Work Phone: Start: 07-31-2023 End: 07-31-[address] Marshall Bear Work Phone: [facility] Work Phone: Start: 07-31-2023 End: 07-31-2023 Dr. Marshall Bear Work Phone: [facility] Work Phone: Start: 07-28-2023 End: 07-28-[address] Marshall Bear Work Phone: [facility] Work Phone: Start: 07-28-2023 End: 07-28-2023 Dr. Marshall Bear Work Phone: [facility] Work Phone: Start: 07-20-2023 Non-patient / Non-visit Dr. Gracy Bear Work Phone: [facility] Start: 07-20-2023 Dr. Marshall Gates hner Work Phone: [facility] Start: 07-19-2023 Non-patient / Non-visit Dr. Gracy Bear Work Phone: [facility] Work Phone: Start: 07-19-2023 Dr. Marshall Gates hner Work Phone: [facility] Work Phone: Start: 07-19-2023 Non-patient / Non-visit Dr. Gracy Bear Work Phone: [facility] Start: 07-19-2023 Dr. Marshall Gates hner Work Phone: [facility] Start: 07-18-2023 Non-patient / Non-visit Dr. Gracy Bear Work Phone: [facility] Work Phone: Start: 07-18-2023 Dr. Marshall Gates hner Work Phone: [facility] Work Phone: Start: 07-18-2023 Non-patient / Non-[facility] Start: 07-18-2023 End: 07-20-2023 Evaluation and management of inpatient [facility]. Marshall Bear [facility] Start: 07-18-2023 End: 07-20-2023 Dr. Marshall Bear [facility] Start: 07-17-2023 Non-patient / Non-visit Dr. Gracy Bear Work Phone: [facility] Start: 07-17-2023 Dr. Marshall aguirre Work Phone: [facility] Start: 07-10-2023 End: 07-10-[address] Marshall Bear Work Phone: [facility] Work Phone: Start: 07-10-2023 End: 07-10-2023 Dr. Marshall Bear Work Phone: [facility] Work Phone: Start: 06-01-2023 End: 06-01-[address] Marshall Bear Work Phone: [facility] Work Phone: Start: 05-27-2023 End: 05-27-[address] Marshall Bear Work Phone: [facility] Work Phone: Start: 05-27-2023 End: 05-27-[address] Marshall Bear Work Phone: [facility] Work Phone: Start: 05-19-2023 End: 05-19-[address] Marshall Bear Work Phone: [facility]-Laboratory, Specimen Work Phone: Start: 05-19-2023 End: 05-19-[address] Marshall Bear Work Phone: [facility] Work Phone: Start: 05-15-2023 End: 05-15-2023 Admission to same day surgery center Dr. Marshall Bear Work Phone: [facility]-Surgical Day Care Start: 05-15-2023 End: 05-15-[address] Marshall Bear Work Phone: [facility] Work Phone: Start: 05-12-2023 End: 05-12-[address] Marshall Bear Work Phone: [facility] Work Phone: Start: 05-11-2023 End: 05-11-2023 Emergency department patient visit Dr. Marshall Bear Work Phone: [facility]-Emergency Department Work Phone: Start: 05-11-2023 End: 05-11-[address] Marshall Bear Work Phone: [facility] [place] Work Phone: Start: 05-10-2023 End: 05-10-2023 Emergency department patient [facility] Marshall [facility] Start: 05-06-2023 End: 05-06-[address] Marshall Bear Work Phone: [facility] Work Phone: Start: 04-20-2023 End: 04-20-[address] Marshall Bear Work Phone: [facility] Work Phone: Start: 04-18-2023 Refill Jose Juan richardson MD Work Phone: General Surgery Comment on above: Refill Request Start: 04-14-2023 End: 04-14-[address] Marshall Bear Work Phone: [facility] Work Phone: Start: 04-14-2023 End: 04-14-[address] Marshall Bear Work Phone: [facility]-Physical Therapy Work Phone: Start: 03-31-2023 End: 03-31-[address] Marshall Bear Work Phone: [facility] Work Phone: Start: 03-21-2023 End: 03-21-2023 ambulatory MD Marshall HARKINS [facility] Work Phone: Start: 03-21-2023 End: 03-21-2023 Patient encounter procedure MD Marshall HARKINS [facility] Work Phone: Start: 02-09-2023 End: 02-09-2023 Patient encounter procedure MD Marshall HARKINS [facility] Work Phone: Start: 01-18-2023 Non-patient / Non-visit MD Kristen HARKINS [facility] Start: 01-18-2023 End: 01-18-2023 Patient encounter procedure MD Marshall HARKINS [facility]Cardiovascula [facility] Services Work Phone: Start: 12-20-2022 End: 12-20-2022 Patient encounter procedure MD Marshall HARKINS [facility] Work Phone: Start: 12-16-2022 End: 12-16-2022 Patient encounter procedure MD Marshall HARKINS [facility] Work Phone: Start: 11-18-2022 End: 11-19-2022 ambulatory MARSHALL BEAR Facility:[facility] Start: 11-18-2022 End: 11-18-2022 Patient encounter procedure Edilia Hunter PA-C Work Phone: General Surgery Comment on above: Calculus of gallblad wilmar with chronic cholecystitis without obstruction (Primary Dx); Back spasm Start: 11-14-2022 Telephone encounter Jose Juan Pena MD Work Phone: General Surgery Comment on above: Post op complication s Start: 11-14-2022 End: 11-14-2022 Emergency department patient visit MD Marshall HARKINS [facility]-Emergency Department Start: 11-11-2022 End: 11-11-2022 ambulatory JOSE JUAN PENA Facility:[facility] Start: 11-09-2022 Telephone encounter Nitish Norris APRN.CNP Work Phone: Pre Anesthesia Comment on above: Request Outside [facility] Start: 11-04-2022 End: 11-05-2022 ambulatory MARSHALL BEAR Facility:[facility] Start: 11-04-2022 Encounter for other preprocedural examination MARSHALL BEAR [facility] Start: 11-04-2022 End: 11-04-2022 [facility] Phone: [facility] Start: 11-04-2022 End: 11-04-2022 ambulatory [facility] 1 Work Phone: Pre Anesthesia Comment on above: Pre-operative examin ation (Primary Dx); Other hyperlipidemia; Coronary artery disease involving [place] coronary artery of kiowa tribe heart without angina pectoris; BPH with obstruction/lower urinary tract symptoms; Controlled type 2 diabetes mellitus without complication, without long-term current use of insulin (HCC); COPD with chronic bronchitis (HCC); Gastroesophageal reflux disease with esophagitis, unspecified whether hemorrhage; Bilateral hearing loss, unspecified hearing loss type; Obesity, Class I, BMI 30-34.9 Start: 11-04-2022 End: 11-04-2022 Preprocedural examination done [facility] 1 Work Phone: Pre Anesthesia Start: 11-04-2022 End: 11-04-2022 Patient encounter procedure MD Marshall HARKINS [facility] Start: 10-27-2022 End: 10-27-2022 Patient encounter procedure MD Marshall HARKINS [facility] [place] Start: 10-20-2022 Telephone encounter Jose Juan Pena MD Work Phone: General Surgery Comment on above: Results (CT scan fro m [facility] ) Start: 10-20-2022 End: 10-21-2022 ambulatory JOSE JUAN PENA Facility:[facility] Start: 10-20-2022 End: 10-20-2022 Patient encounter procedure Jose Juan Pena MD Work Phone: General Surgery Comment on above: Calculus of gallblad wilmar without cholecystitis without obstruction (Primary Dx); RUQ pain Start: 10-07-2022 End: 10-08-2022 ambulatory Edilia Hunter Facility:[facility] Start: 10-07-2022 End: 10-07-2022 Patient encounter procedure [...] Emergency department patient visit MD Marshall Bear [facility] Start: 09-12-2022 End: 09-12-2022 Patient encounter procedure MD Marshall Bear [facility] [place] Start: 08-09-2022 Telephone [...] End: 08-02-2022 [facility] Start: 07-20-2022 End: 07-20-2022 [facility] Start: 07-11-2022 End: 07-11-2022 [facility] Start: 07-04-2022 End: 07-04-2022 [facility] Start: 06-27-2022 End: 06-27-2022 Patient encounter procedure MD Marshall Glasschner [facility] Start: 06-20-2022 End: 06-20-2022 Admission [facility] Start: 06-20-2022 End: 06-20-2022 ambulatory MD Marshall Bear [facility] Work Phone: Start: 04-21-2022 End: 04-21-2022 [facility] Start: 04-21-2022 End: 04-21-2022 Patient encounter procedure MD Marshall Bear [facility] Start: 04-21-2022 End: 04-21-2022 Patient encounter procedure MD Marshall Bear [facility] [place] Start: 04-11-2022 End: 04-11-2022 Patient encounter procedure MD Marshall Bear [facility] Start: 03-24-2022 End: 03-24-2022 Patient encounter procedure MD Marshall Bear [facility] Radiology Start: 03-24-2022 End: 03-24-2022 Patient encounter procedure MD Marshall Bear [facility] Start: 03-22-2022 End: 03-22-2022 Patient encounter procedure MD Marshall Bear [facility] Start: 03-14-2022 End: 03-14-2022 Patient encounter procedure MD Marshall Bear [facility] Start: 03-09-2022 End: 03-09-2022 [facility] Start: 03-01-2022 Non-patient / Non-visit MD Marshall george [facility] Start: 03-01-2022 End: 03-01-2022 Admission to same day surgery center MD Marshall Bear [facility] Start: 02-16-2022 End: 02-16-2022 Patient encounter procedure MD Marshall Bear [facility] Start: 02-11-2022 End: 02-11-2022 Patient encounter procedure MD Marshall Bear [facility] Start: 02-04-2022 End: 02-04-2022 Patient encounter procedure MD Marshall Bear [facility] Start: 11-15-2021 End: 11-15-[address] Weston Gutierrez Work Phone: [facility] Start: 10-04-2021 End: 10-04-[address] Weston Gutierrez Work Phone: [facility] [place] Start: 10-04-2021 End: 10-04-[address] Weston Gutierrez Work Phone: [facility] Start: 10-01-2021 End: 10-01-[address] Weston Gutierrez Work Phone: [facility] Start: 08-10-[address] [facility] Start: 07-29-[address] West[facility] Gutierrez [facility] Start: 09-19-2017 End: 09-19-2017 [facility] Procedures Date Procedure Procedure Detail Performing [...] 10-23-2023 MRI of brain without contrast Dr. Masrhall Bear Work Phone: Start: 10-23-2023 MRI of [...] Start: 07-05-2023 Nasal Screen MRSA/MSSA Dr. Marshall aco Work Phone: Start: 07-05-2023 Dr. Marshall Bear [...] Start: 08-10-2021 Influenza Types A,B Direct FA ([facility]) Dr. Weston Gutierrez Work Phone: Start: 08-10-2021 End: 08-10-2021 Respiratory syncytial virus antigen assay Dr. Weston Gutierrez Work Phone: Start: 07-29-2021 Influenza Types A,B Direct FA ([facility]) Dr. Weston Gutierrez Work Phone: [...] Activity Detail Author Start: 09-27-2027 Colonoscopy COLONOSCOPY [facility] Start: 09-27-2027 COLORECTAL CANCER SCREENING COLORECTAL CANCER SCREENING [facility] Start: 09-27-2027 Screening for malign ant neoplasm of colon [facility] Start: 03-06-2025 Procedure [facility] Start: 02-25-2025 Evaluation of diagno stic study results [facility] Start: 01-31-2025 X-ray of lumbosacral spine L/S Spine Min 4 Views [facility] Start: 01-31-2025 XR Spine Lumbar and Sacrum GE 4 Views [facility] Start: 12-12-2023 Patient discharge [facility] Start: 12-10-2023 Consultation [facility] Start: 12-10-2023 Care regimes management [facility] Start: 12-10-2023 Notification of physician [facility] Start: 12-10-2023 [facility] Start: 12-10-2023 Following clinical pathway protocol [facility] Start: 12-10-2023 Ambulation without limitation [facility] Start: 12-10-2023 Assessment of risk o f venous thromboembolism [facility] Start: 12-10-2023 Insertion of cathete r into peripheral vein [facility] Start: 12-10-2023 Providing care accor ding to standard [facility] Start: 12-10-2023 Referral to occupati onal therapist [facility] Start: 12-10-2023 Referral to service [facility] Start: 12-09-2023 End: 12-10-2023 [facility] Start: 12-10-2023 Admission procedure [facility] Start: 12-09-2023 End: 12-09-2023 Blood culture [facility] Start: 11-08-2023 Patient referral [facility] Work Phone: Start: 11-01-2023 [facility] Start: 10-26-2023 Patient discharge [facility] Start: 10-26-2023 Referral to service [facility] Start: 10-25-2023 Bone marrow biopsy, needle or trocar [facility] Start: 10-25-2023 End: 10-26-2023 [facility] Start: 10-25-2023 Catheterization of vein [facility] Start: 10-25-2023 Vital signs measurements [facility] Start: 10-25-2023 Consultation [facility] Start: 10-25-2023 Care planning and pr oblem solving actions [facility] Start: 10-25-2023 [facility] Start: 10-22-2023 Consultation [facility] Start: 10-22-2023 End: 10-22-2023 Blood culture [facility] Start: 10-22-2023 End: 10-22-2023 [facility] Start: 10-21-2023 Following clinical pathway protocol [facility] Start: 10-21-2023 Aspiration precautions [facility] Start: 10-21-2023 Assessment of risk o f venous thromboembolism [facility] Start: 10-21-2023 Cardiac monitoring [facility] Start: 10-21-2023 Care regimes management [facility] Start: 10-21-2023 Catheterization of vein [facility] Start: 10-21-2023 Elevation of head of bed [facility] Start: 10-21-2023 Exercises [facility] Start: 10-21-2023 Fall prevention [facility] Start: 10-21-[address] anned interventions [facility] Start: 10-21-2023 Inhalation therapy procedure [facility] Start: 10-21-2023 Insertion of cathete r into peripheral vein [facility] Start: 10-21-2023 Introduction of urin jeaneth catheter [facility] Start: 10-21-2023 Measuring intake and output [facility] Start: 10-21-2023 Notification of physician [facility] Start: 10-21-2023 Patient referral to dietitian [facility] Start: 10-21-2023 Providing care accor ding to standard [facility] Start: 10-21-2023 Provision of activit y privileges [facility] Start: 10-21-2023 Referral to occupati onal therapist [facility] Start: 10-21-2023 Referral to service [facility] Start: 10-21-2023 Speech therapy assessment [facility] Start: 10-21-2023 Tobacco use cessatio n education [facility] Start: 10-21-2023 [facility] Start: 10-21-2023 Verification routine [facility] Start: 10-21-2023 Admission procedure [facility] Start: 10-21-2023 Hospital admission, emergency, from emergency room, medical nature [facility] Start: 10-21-2023 Oxygen therapy [facility] Start: 10-21-2023 End: 10-21-2023 [facility] Start: 10-21-2023 Patient referral to dietitian [facility] Start: 10-16-2023 Patient referral [facility] Work Phone: Start: 10-01-2023 [facility] Start: 08-24-2023 X-ray of lumbar spin e, two or three views Lumbar Spine 2 or 3 Views [facility] Start: 08-24-2023 XR Lumbar spine 2 or 3 Views [facility] Start: 08-14-2023 [facility] Start: 08-14-2023 [facility] Start: 08-14-2023 End: 08-14-2023 Blood culture [facility] Start: 08-14-2023 Advance Directive Discussion Advance Directive Discussion [facility] Start: 08-14-2023 Bacteria identified in Blood by Culture Blood Culture [facility] Start: 08-14-2023 Bacteria identified in Urine by Culture Urine Culture [facility] Start: 08-14-2023 Depression Assessment Depression Ass essment [facility] Start: 08-04-2023 [facility] Start: 07-20-2023 Patient discharge [facility] Start: 07-20-2023 Referral to service [facility] Start: 07-18-2023 Care regimes management [facility] Start: 07-18-2023 Notification of physician [facility] Start: 07-18-2023 [facility] Start: 07-18-2023 Following clinical pathway protocol [facility] Start: 07-18-2023 Application of intermittent pneumatic compression device [facility] Start: 07-18-2023 Bedrest [facility] Start: 07-18-2023 Catheterization of vein [facility] Start: 07-18-2023 Consultation [facility] Start: 07-18-2023 Elevation of head of bed [facility] Start: 07-18-2023 Following clinical pathway protocol [facility] Start: 07-18-2023 Incentive spirometry [facility] Start: 07-18-2023 Measuring intake and output [facility] Start: 07-18-2023 Neurovascular assessment [facility] Start: 07-18-2023 Oxygen therapy [facility] Start: 07-18-2023 Patient education [facility] Start: 07-18-2023 Procedure discontinued [facility] Start: 07-18-2023 Recommendation to continue with treatment [facility] Start: 07-18-2023 Taking patient vital signs [facility] Start: 07-18-2023 Admission procedure [facility] Start: 05-19-2023 Anes dx/ther nerve block/injection prone pos ANESTH N BLOCK/INJ PRONE [facility] Start: 05-19-2023 Njx anes&/strd w/img tfrml edrl lmbr/sac 1 lvl NJX AA&/STRD TFRM EPI L/S 1 [facility] Start: 05-19-2023 Njx dx/ther sbst int rlmnr lmbr/sac w/img gdn NJX INTERLAMINAR LMBR/SAC [facility] Start: 05-15-2023 Injection using fluoroscopic guidance [facility] Start: 05-15-2023 Patient discharge [facility] Start: 05-11-2023 Patient referral [facility] Work Phone: Start: 04-14-2023 Covid-19 Vaccine ( season) Covid-19 Vaccine () [facility] Start: 04-14-2023 Influenza vaccination [facility] Start: 03-31-2023 Patient referral [facility] Work Phone: Start: 08-14-2022 ADVANCE DIRECTIVE DISCUSSION ADVANCE DIRECTIVE DISCUSSION [facility] Start: 08-14-2022 DEPRESSION ASSESSMENT [facility] Start: 06-21-2022 Colonoscopy COLONOSCOPY [facility] Start: 06-21-2022 COLORECTAL CANCER SCREENING COLORECTAL CANCER SCREENING [facility] Start: 06-20-2022 Njx dx/ther sbst int rlmnr lmbr/sac w/img gdn NJX INTERLAMINAR LMBR/SAC [facility] Start: 06-20-2022 Injection using fluoroscopic guidance [facility] Work Phone: Start: 06-20-2022 Patient discharge [facility] Start: 04-14-2022 Influenza vaccination INFLUENZA (#1) [facility] Start: 03-01-2022 Anes open/surg arthroscopic proc knee joint nos ANESTH KNEE JOINT SURGERY [facility] Work Phone: Start: 03-01-2022 Arthrs kne surg w/meniscectomy med/lat w/shvg KNEE ARTHROSCOPY/SURGERY [facility] Work Phone: Start: 03-01-2022 Gait training procedure [facility] Work Phone: Start: 03-01-2022 Patient discharge [facility] Work Phone: Start: 03-01-2022 Application of ice collar, cap or bag [facility] Work Phone: Start: 03-01-2022 Catheterization of vein [facility] Work Phone: Start: 03-01-2022 Elevation of affecte d extremity [facility] Work Phone: Start: 03-01-2022 Following clinical pathway protocol [facility] Work Phone: Start: 03-01-2022 Procedure discontinued [facility] Work Phone: Start: 03-01-2022 Taking patient vital signs [facility] Work Phone: Start: 03-01-2022 Vital signs measurements [facility] Work Phone: Start: 03-01-2022 [facility] Work Phone: Start: 03-01-2022 Medication education [facility] Work Phone: Start: 07-10-2021 COVID-19 VACCINE (4 - Booster for Pfizer series) COVID-19 VACCINE (4 - Booster for Pfizer series) [facility] Start: 07-10-2021 COVID-19 VACCINE (4 - Pfizer series) COVID-19 VACCINE (4 - Pfizer series) [facility] Start: 04-17-2020 Hepatitis B screening URINE ALBUMIN:CREATININE RATIO [facility] Start: 04-09-2020 Hepatitis B surface antibody level LDL CHOLESTEROL [facility] Start: 03-20-2020 PNEUMOCOCCAL: 65+ (3 - PPSV23 if available, else PCV20) PNEUMOCOCCAL: 65+ (3 - PPSV23 if available, else PCV20) [facility] Start: 03-20-2020 PNEUMOCOCCAL: 65+ (3 - PPSV23 or PCV20) PNEUMOCOCCAL: 65+ (3 - PPSV23 or PCV20) [facility] Start: 01-28-2020 Shingrix Vaccine (2 of 2) Mckeon grix Vaccine (2 of 2) [facility] Start: 11-29-2019 Glaucoma screening Dilated Retinal E xam [facility] Start: 11-29-2019 Hepatitis C antibody , confirmatory test DILATED RETINAL EXAM [facility] Start: 11-22-2019 ANNUAL PCP TEAM DRUGLESS DOCTOR SHADI DISEASE VISIT ANNUAL PCP TEAM CHRONIC DISEASE VISIT [facility] Start: 10-10-2019 Hemoglobin A1c measurement HbA1C [facility] Start: 10-10-2019 Hemoglobin A1c/Hemoglobin.total in Blood HBA1C [facility] Start: 07-17-2019 3 comp foot exam completed DIABETIC FOOT EXAM [facility] Start: 07-17-2019 Diabetic foot examination Diabetic F oot Exam [facility] Start: 2013 Hepatitis B Vaccine (1 of 3 - Risk 3-dose series) Hepatitis B Vaccine (1 of 3 - Risk 3-dose series) [facility] Start: 2013 RSV Vaccine (1 - 1-d ose 60+ series) RSV Vaccine (1 - 1-dose 60+ series) [facility] Start: 03-08-2013 Urine microalbumin profile [facility] Start: 2003 SHINGRIX VACCINE (1 of 2) MCKEON GRIX VACCINE (1 of 2) [facility] Start: 1998 COLOGUARD (FIT-DNA) COLOGUARD (FIT-D NA) [facility] Start: [address] COLONOGRAPHY [facility] Start: 1998 FECAL OCCULT BLOOD FECAL OCCULT BLOO D [facility] Start: 1998 Screening for malign ant neoplasm of colon [facility] Start: 1998 SIGMOIDOSCOPY SIGMOIDOSCOPY [facility] Start: 1983 Zoledronic acid therapy ALPHA- 1 ANTITRYPSIN DEFICIENCY SCREENING [facility] Start: 1971 SPIROMETRY SPIROMETRY [facility] Acid fast bacilli culture [facility] Bacteria identified in Unspecified specimen by Anaerobe culture [facility] Basic metabolic 2008 panel with ionized calcium - Serum or Plasma [facility] Bilirubin measuremen t, urine [facility] Bone marrow aspirati on procedure [facility] Cardiac event recording [facility] CBC W Auto Different ial panel - Blood [facility] End: 09-16-2023 EGD DIAGNOSTIC EGD DIAGNOSTIC Endoscopy Routine Epigastric pain 1 Occurrences starting 09/16/2022 until 09/16/2023 [facility] Work Phone: Comment on above: 1 Occurrences starti ng 09/16/2022 until 09/16/2023 End: 09-28-2024 EGD DIAGNOSTIC EGD DIAGNOSTIC Endoscopy Routine Epigastric pain 1 Occurrences starting 09/28/2023 until 09/28/2024 [facility] Work Phone: Comment on above: 1 Occurrences starti ng 09/28/2023 until 09/28/2024 Fungus identified in Unspecified specimen by Fungus stain [facility] Hemoglobin [Presence ] in Urine [facility] Hemoglobin A1c/Hemoglobin.total in Blood [facility] Lipid 1996 panel - S ariadne or Plasma [facility] Measurement of keton es in urine using dipstick [facility] Microbial culture, b cinda fluid [facility] Microscopic urinalysis [facility] MR Cervical spine [facility] MR Cervical spine [facility] MR Lumbar spine WO a nd W contrast IV [facility] Mycobacterium sp identified in Unspecified specimen by Organism specific culture [facility] Myelogram [facility] NM Heart Views W str ess and W radionuclide IV [facility] Patient Education [facility] Work Phone: Patient referral [facility] Work Phone: pH of Urine [facility] End: 08-09-2023 Screening colonoscopy COLONOSCOPY SCREENING Endoscopy Routine History of colonic polyps 1 Occurrences starting 08/09/2022 until 08/09/2023 [facility] Work Phone: Comment on above: 1 Occurrences starti ng 08/09/2022 until 08/09/2023 Specific gravity of Urine [facility] Thyroid stimulating hormone measurement [facility] Urinalysis, blood, qualitative [facility] Urine dipstick for glucose [facility] Urine dipstick for leukocyte esterase [facility] Urine dipstick for nitrite [facility] Urine dipstick for protein [facility] Urine examination [facility] Urine microscopy: epithelial cells [facility] Urine Microscopy: wh ite cells [facility] Urobilinogen [Presen ce] in Urine [facility] Immunizations Immunization Date Immunization Notes Care Provider [facility] 07-18-2024 Seasonal trivalent influenza vaccine, adjuvanted, preservative free Dr. Marshall Bear MD Work Phone: [facility] 05-17-2023 Influenza High-Dose Quadrivalent Dr. Marshall Bear MD Work Phone: [facility] 05-17-2023 RSV Adult BiValent (Abrysvo) Dr. Marshall Bear MD Work Phone: [facility] 03-14-2022 influenza virus vacc ine, unspecified formulation Jose Juan Pena MD Work Phone: [facility] 05-15-2021 Covid (Pfizer) Dr. Marshall george MD Work Phone: [facility] 04-22-2021 influenza, injectabl e, quadrivalent, preservative free Dr. Marshall Bear MD Work Phone: [facility] 11-12-2020 Covid (Pfizer) Dr. Weston Gutierrez Work Phone: [facility] 10-22-2020 Covid (Pfizer) Dr. Weston Gutierrez Work Phone: [facility] 06-01-[address] Weston Gutierrez Work Phone: [facility] 04-03-2020 influenza, injectabl e, quadrivalent, preservative free Dr. Marshall Bear MD Work Phone: [facility] 12-03-[address] Marshall Bear MD Work Phone: [facility] 05-13-2019 pneumococcal polysaccharide vaccine, [address] Marshall Bear MD Work Phone: [facility] 05-06-2019 influenza, injectabl e, quadrivalent, preservative free Dr. Marshall Bear MD Work Phone: [facility] 07-17-2018 Influenza, high dose seasonal Dr. Marshall Bear MD Work Phone: [facility] 07-17-2018 influenza, high dose seasonal, preservative-free Edilia Akiachak PA-C Work Phone: [facility] Work Phone: 07-17-2018 pneumococcal conjuga te vaccine, 13 valent Edilia Titi PA-C Work Phone: [facility] Work Phone: 07-17-2017 influenza, injectabl e, quadrivalent, contains preservative Edilia Akiachak PA-C Work Phone: [facility] 07-17-2017 influenza, injectabl e, quadrivalent, preservative free Dr. Marshall Bear MD Work Phone: [facility] 07-15-2016 influenza, injectabl e, quadrivalent, contains preservative Edilia Akiachak PA-C Work Phone: [facility] 07-29-2015 influenza, injectabl e, quadrivalent, contains preservative Edilia Titi PA-C Work Phone: [facility] Work Phone: 07-29-2015 influenza, injectabl e, quadrivalent, preservative free Dr. Marshall Bear MD Work Phone: [facility] 03-20-2015 pneumococcal polysaccharide vaccine, 23 valent Edilia Titi PA-C Work Phone: [facility] 06-10-2014 influenza, injectabl e, quadrivalent, preservative free Dr. Marshall Bear MD Work Phone: [facility] 06-10-2014 influenza, seasonal, injectable Edilia Akiachak PA-C Work Phone: [facility] 03-07-2013 tetanus and diphther ia toxoids, not adsorbed, for adult use Edilia Akiachak PA-C Work Phone: [facility] 06-14-2012 influenza virus vacc ine, unspecified formulation Edilia Akiachak PA-C Work Phone: [facility] 06-25-2010 influenza virus vacc ine, unspecified formulation Edilia Titi PA-C Work Phone: [facility] 06-05-2009 influenza virus vacc ine, unspecified formulation Edilia Akiachak PA-C Work Phone: [facility] Work Phone: 07-23-2008 influenza, injectabl e, quadrivalent, preservative free Dr. Marshall Bear MD Work Phone: [facility] 07-18-2007 influenza virus vacc ine, unspecified formulation Edilia Akiachak PA-C Work Phone: [facility] Work Phone: 06-13-2006 influenza virus vacc ine, unspecified formulation Edilia Titi PA-C Work Phone: [facility] Work Phone: Payers Date Payer Category Payer Self-pay [id number] 2024 Self-pay [id number] 2007 Medicare [id number] 2007 Medicare [employer] [place] [place] [id number] 2007-Present [phone] [address] [place] [address] O [id number] Medicare [id number] Unknown [id number] Unknown [id number] [id number]2 Unknown [id number] 2.16840.1.088470.3.579.2.462 Unknown [id number] 2.16.840.1.198739.3.579.2.462 Unknown [id number] 2.16.840.1.713959.3.579.2.462 Unknown [id number] 2.16840.1.531950.3.579.2.462 Unknown [id number] 2.840.1.812166.3.579.2.462 Unknown [id number] 2.840.1.275175.3.579.2.462 Unknown [id number] 2.840.1.816595.3.579.2.462 Unknown [id number] 2.840.1.994201.3.579.2.462 Unknown [id number] 2.840.1.006795.3.579.2.462 Unknown [id number] 2.840.1.263401.3.579.2.462 Unknown [id number] 2.840.1.770159.3.579.2.462 Unknown [id number] 2.840.1.485164.3.579.2.462 Unknown [id number] 2.840.1.308085.3.579.2.462 Unknown [id number] 2.840.1.935784.3.579.2.462 Unknown [id number] 2.16840.1.250948.3.579.2.462 Unknown [id number] 2.16840.1.170444.3.579.2.462 Unknown [id number] 2.16840.1.979981.3.579.2.462 Unknown [id number] 2.840.1.702901.3.579.2.462 Unknown [id number] 2.840.1.660883.3.579.2.462 Unknown [id number] 2.840.1.727831.3.579.2.462 Unknown [id number] 2.840.1.736120.3.579.2.462 Unknown [id number] 2.840.1.608743.3.579.2.462 Unknown [id number] 2.840.1.157673.3.579.2.462 Unknown [id number] 2.840.1.357364.3.579.2.462 Unknown [id number] 2.840.1.065532.3.579.2.462 Unknown [id number] 2.840.1.958700.3.579.2.462 Unknown [id number] 2.840.1.864733.3.579.2.462 Unknown [id number] 2.840.1.939731.3.579.2.462 Unknown [id number] 2.840.1.591018.3.579.2.462 Unknown [id number] 2.840.1.486474.3.579.2.462 Unknown [id number] 2.840.1.097229.3.579.2.462 Unknown [id number] 2.840.1.582953.3.579.2.462 Unknown [id number] Unknown [id number] Unknown [id number] Unknown [id number] Unknown [id number] Unknown [id number] Unknown [id number] Unknown [id number] Social History Date Type Detail Facility Start: 10-04-2021 End: 12-10-2023 Tobacco smoking status CTIS Unknown if ever smoked [facility] Start: 08-16-2019 None [facility] Start: 08-16-2019 With Family [facility] Start: 09-03-2020 Chew [facility] Start: 1955 Sex Assigned At Male [facility] Start: 10-13-2011 End: 10-04-2024 Tobacco smoking status CTIS Ex-smoker [facility] History of tobacco use Current smoker [facility] History of tobacco use Cigarette Smoker C [facility] Start: 10-13-2011 End: 10-20-2022 Tobacco use and exposure User of smokeless tobacco [facility] History of tobacco use Chews Tobacco [facility] Start: 08-09-2022 End: 09-28-2022 Alcohol intake Current drinker of alcohol (finding) [facility] Start: 08-09-2022 End: 08-28-2022 Alcohol intake [facility] Start: 06-20-2017 Alcohol Comment rarely [facility] Start: 1955 Sex Assigned At Not on file [facility] Start: 09-27-2022 Tobacco Comment snuff 1 can a week C [facility] Start: 10-20-2022 End: 10-11-2023 Alcohol intake Ex-drinker (finding) [facility] Start: 10-20-2022 Tobacco Comment One can a week .States only smoked occasionally years ago. [facility] Start: 08-28-2022 End: 11-18-2022 Tobacco use panel [facility] Adult Depression Screening Assessment 0 [facility] Medical Equipment Procedure Code Equipment Code [...] supine position transitioning to prone COUGAR LS [id number] FDA Start: 01-19-2024 Fusion, spine, lumbar, 360 [...] supine position transitioning to prone COUGAR LS [id number] FDA Start: 01-19-2024 Fusion, spine, lumbar, 360 [...] supine position transitioning to prone COUGAR LS [id number] FDA Start: 01-19-2024 Fusion, spine, lumbar, 360 [...] supine position transitioning to prone COUGAR LS [id number] FDA Start: 01-19-2024 Fusion, spine, lumbar, 360 [...] supine position transitioning to prone COUGAR LS [id number] FDA Start: 01-19-2024 Fusion, spine, lumbar, 360 [...] supine position transitioning to prone COUGAR LS [id number] FDA Start: 01-19-2024 Fusion, spine, lumbar, 360 [...] cervical, anterior approach, with fusion STRIP,BONE CANC [id number] FDA Start: 09-03-2020 Discectomy, spine, cervical, anterior [...] cervical, anterior approach, with fusion STRIP,BONE CANC [id number] FDA Start: 09-03-2020 Discectomy, spine, cervical, anterior [...] cervical, anterior approach, with fusion STRIP,BONE CANC [id number] FDA Start: 09-03-2020 Discectomy, spine, cervical, anterior [...] cervical, anterior approach, with fusion STRIP,BONE CANC [id number] FDA Start: 09-03-2020 Discectomy, spine, cervical, anterior [...] cervical, anterior approach, with fusion STRIP,BONE CANC [id number] FDA Start: 09-03-2020 Discectomy, spine, cervical, anterior [...] cervical, anterior approach, with fusion STRIP,BONE CANC [id number] FDA Start: 09-03-2020 Discectomy, spine, cervical, anterior [...] cervical, anterior approach, with fusion STRIP,BONE CANC [id number] FDA Start: 09-03-2020 Discectomy, spine, cervical, anterior [...] cervical, anterior approach, with fusion STRIP,BONE CANC [id number] FDA Start: 09-03-2020 Discectomy, spine, cervical, anterior [...] cervical, anterior approach, with fusion STRIP,BONE CANC [id number] FDA Start: 09-03-2020 Discectomy, spine, cervical, anterior [...] cervical, anterior approach, with fusion STRIP,BONE CANC [id number] FDA Start: 09-03-2020 Discectomy, spine, cervical, anterior [...] cervical, anterior approach, with fusion STRIP,BONE CANC [id number] FDA Start: 09-03-2020 Discectomy, spine, cervical, anterior [...] cervical, anterior approach, with fusion STRIP,BONE CANC [id number] FDA Start: 09-03-2020 Discectomy, spine, cervical, anterior [...] cervical, anterior approach, with fusion STRIP,BONE CANC [id number] FDA Start: 09-03-2020 Discectomy, spine, cervical, anterior [...] cervical, anterior approach, with fusion STRIP,BONE CANC [id number] FDA Start: 09-03-2020 Discectomy, spine, cervical, anterior [...] cervical, anterior approach, with fusion STRIP,BONE CANC [id number] FDA Start: 09-03-2020 Discectomy, spine, cervical, anterior [...] cervical, anterior approach, with fusion STRIP,BONE CANC [id number] FDA Start: 09-03-2020 Discectomy, spine, cervical, anterior [...] cervical, anterior approach, with fusion STRIP,BONE CANC [id number] FDA Start: 09-03-2020 Discectomy, spine, cervical, anterior [...] cervical, anterior approach, with fusion STRIP,BONE CANC [id number] FDA Start: 09-03-2020 Discectomy, spine, cervical, anterior [...] cervical, anterior approach, with fusion STRIP,BONE CANC [id number] FDA Start: 09-03-2020 Discectomy, spine, cervical, anterior [...] cervical, anterior approach, with fusion STRIP,BONE CANC [id number] FDA Start: 09-03-2020 Discectomy, spine, cervical, anterior [...] cervical, anterior approach, with fusion STRIP,BONE CANC [id number] FDA Start: 09-03-2020 Discectomy, spine, cervical, anterior [...] cervical, anterior approach, with fusion STRIP,BONE CANC [id number] FDA Start: 09-03-2020 Test blood sugar(s) one [...] End: 09-15-2022 PATCH,AMNION [id number] FDA Start: 07-18-2023 ()[id number] FDA Start: 07-18-2023 ()[id number] FDA Start: 07-18-2023 Blood Sugar Diagnostic (Freestyle [...] Facility 12-12-2023 Functional status Ambulates;Up ad shruti [facility] Work Phone: 10-26-2023 Functional status Ambulates [facility] Work Phone: 07-20-2023 Functional status Bedrest [facility] Work Phone: 07-20-2023 Functional status None [facility] Work Phone: Mental Status Date Assessment Result Facility 12-12-2023 Cognitive function Voice/Name [facility] Work Phone: 11-01-2023 Cognitive function Awake;Alert;Appropriat e [facility] Work Phone: 10-26-2023 Cognitive function Voice/Name [facility] Work Phone: 10-21-2023 Cognitive function Voice/Name [facility] Work Phone: 07-20-2023 Cognitive function Voice/Name [facility] Work Phone: 05-15-2023 Cognitive function Level Of Consciousness Sedated [facility] Work Phone: 05-15-2023 Cognitive function Voice/Name [facility] Work Phone: 06-20-2022 Cognitive function Voice/Name [facility] Work Phone: 03-01-2022 Cognitive function Level Of Cons ciousness Awake;Alert;Appropriate;Follow s Commands [facility] Work Phone: 03-01-2022 Cognitive function Voice/Name [facility] Work Phone: Clinical Notes 09-14-2011 to 01-27-2025 [...] spinal fusion acute January 31, 2025 7:43am [facility] Work Phone: 1(872) 164-886506-16-2025 Evaluation note* Diagnosis Onset Date Resolution Status [...] with insufficiency inactive February 25, 2025 8:41am [facility] Work Phone: 1(895) 549-551606-16-2025 Evaluation note* Diagnosis Onset Date Resolution Status [...] with insufficiency inactive February 25, 2025 8:41am [facility] Work Phone: 1(998) 861-478402-21-2025 Evaluation note* Diagnosis Onset Date Resolution Status Admit Date Status post lumbar spinal fusion acute October 04 9:49am Left foot pain suspected September 152024 9:49am [facility] [employer] Work Phone: 1(988) 215-804602-21-2025 Evaluation note* Diagnosis Onset Date Resolution Status Admit Date Status post lumbar spinal fusion acute October 04 9:49am Left foot pain suspected September 152024 9:49am Essential (primary) hypertension acute January 27, 2025 10:41am Hyperlipemia acute January 27 10:41am Type 2 diabetes mellitus acute January 27, 2025 10:41am Vasovagal episode acute January 272024 10:41am [employer] Work Phone: 1(543) 437-441808-08-2024 [facility]04-30-2024 Progress note Author Tarik [facility] December 12, 2023 10:31am Note Date/Time December 12, 2023 10: 29am [facility] Medical Records Department [address] [place] [address] Progress Note - Infect Disease 12/12/23 1028 MR#: [id number] Acct: [id number] Name: JARET BATES Rep #:[id number] : 1955 68 From: Tarik cao MD PCP: Dr. Marshall Bear MD Status:ADM IN Location: WA3 LN510-0 Physical Exam Narrative Pain is a little [...] Cosigner Signature (if applicable): CC: ~ Signed [facility] Work Phone: 1(353) 809-160804-29-2024 Progress note Author Ochoa Figueroa [facility] December 11, 2023 3:23pm Note Date/Time December 11, 2023 11: 01am [facility] Medical Records Department [address] [place] [address] Progress Note - Hospitalist 12/11/23 1059 MR#: [id number] Acct: [id number] Name: PAULOJARET QUESADA Rep #:[id number] : 1955 68 From: Ochoa Mcfarlane PCP: Dr. Marshall Bear MD Status:ADM IN Location: [place] [address]-1 Reason for Visit Reason for Visit: Diagnoses [...] ago for discitis. He follows spine surgeon [facility]. Seen and examined General: Alert, Oriented [...] Patient is a 68-year-old male who presented [facility] ED on 12/10/2023 with recurrent low back pain. 1. Recurrent low back pain, recent history of L4-5 laminectomy complicated by discitis/osteomyelitis, debility ? Admit under inpatient status to [facility]. MRI lumbar spine with and without IVcontrast [...] intraspinous abscess. Charges/Coding Visit Charges Inpatient E&M: 51813 Subs Hosp L2 12/11/23 1523 <Electronically signed by Ochoa Figueroa MD> Cosigner Signature (if applicable): CC: ~ Signed [facility] Work Phone: 1(358) 950-235204-29-2024 Consult note Author Tarik Wilkinson [facility] December 11, 2023 1:07pm Note Date/Time December 11, 2023 1:0 7pm [facility] Medical Records Department [address] [place] [address] Consultation - Infectious Dx 12/11/23 1302 MR#: [id number] Acct: [id number] Name: JARET BATES Rep #:[id number] : 1955 68 From: Tarik cao MD PCP: Dr. Marshall Bear MD Status:ADM IN Location: [facility] [id number] Assessment & Plan Assessment/Plan (1) History of [...] performed and neg except as noted above. 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 Marshall Bear MD~ Signed [facility] Work Phone: 1(768) 956-426204-28-2024 Progress note Author Ochoa Figueroa [facility] December 10, 2023 11:21am Note Date/Time December 10, 2023 7:4 7am [facility] Medical Records Department [address] [place] [address] Progress Note - Hospitalist 12/10/23 0744 MR#: [id number] Acct: [id number] Name: JARET BATES Rep #:[id number] : 1955 68 From: Ochoa Mcfarlane PCP: Dr. Marshall Bear MD Status:ADM IN Location: [place] [address] Reason for Visit Reason for Visit: Diagnoses [...] % (Auto) 62.5, Lymph % (Auto) 22.6, Jackson% (Auto) 9.7, Eos % (Auto) 4.3, Baso [...] ago for discitis. He follows spine [facility]. Seen and examined General: Alert, Oriented [...] Patient is a 68-year-old male who presented [facility] ED on 12/10/2023 with recurrent low back pain. 1. Recurrent low back pain, recent history of L4-5 laminectomy complicated by discitis/osteomyelitis, debility ? Admit under inpatient status to [facility]. MRI lumbar spine with and without IVcontrast [...] intraspinous abscess. Charges/Coding Visit Charges Inpatient E&M: 72861 Subs Hosp L2 12/10/23 1121 <Electronically signed by Ochoa Figueroa MD> Cosigner Signature (if applicable): CC: ~ Signed [facility] Work Phone: 1(953) 678-841104-28-2024 History and physical note Author Giuliano Pacheco [facility] December 10, 2023 4:40am Note Date/Time December 10, 2023 12: 14am [facility] Medical Records Department [address] [facility] [place] [address] H&P Exam - Hospitalist 12/10/23 0014 MR#: [id number] Acct: [id number] Name: JARET BATES Rep #:[id number] : 1955 68 From: Giuliano mcconnell DO PCP: Dr. Marshall Bear MD Status:ADM IN Location: [facility] HG348-1 HPI - General General Date of Admission: 12/10/23 Date of Service: 12/10/23 Chief Complaint: Recurrent low back pain with recent history of discitis HPI Narrative JARET BATES, is a 68 M who presented to [facility] ED on 12/10/2023 with recurrent low back [...] pain, he was admitted for further management. [facility] Medical History (Updated 12/10/23 @ 04:[address] 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 1. Recurrent low back pain, recent history of L4-5 laminectomy complicated by discitis/osteomyelitis, debility ? Admit under inpatient status to [facility]. MRI lumbar spine with and without IVcontrast [...] 75 minutes. Charges/Coding Visit Charges Inpatient E&M: 36085 Init Hosp L3 12/10/23 0440 <Electronically signed by Giuliano Pacheco DO> Cosigner Signature (if applicable): CC: Dr. Giuliano Pacheco DO; Dr. Marshall Bear MD~ Signed [facility] Work Phone: 1(565) 752-227303-20-2024 Procedure [facility] 10-26-2023 Discharge summary Author Vin Wheatley [facility] October 26, 2023 3:21pm Note Date/Time October 26, 2023 3:[address] [place] [address] Medical Records Department [address] [place] [address] Discharge Summary 10/26/23 1513 MR#: [id number] Acct: [id number] Name: JARET BATES Rep #:[id number] : 1955 68 From: Vin Wheatley DO PCP: Dr. Marshall Bear MD Status:ADM IN Location: [place] [address] Providers Date of Admission: 10/21/23 Primary Care [...] 10/22/23 17:14 RMA (Rec: 10/22/23 17:14 RMA [id number]) Nutrition Malnutrition Evidence of Malnutrition Exists Yes [...] 75.9 H, Lymph % (Auto) 13.5 L, Jackson % (Auto) 8.8, Eos % (Auto) 0.8, [...] 14:09 EDT Reading Location ID and State: [facility] / [place] , Service support , Meaningful Use Info Meaningful Use Diagnoses (Choose all that apply): None applicable Discharge Plan Admission Admit Date/Time: 10/21/23 19:32 Primary Reason for Your Visit: Lumbar osteomyelitis and diskitis. Attending Provider: Vin Wheatley Primary Care Provider: Marshall Bear Consulting Providers: Sara Reaves; Tarik Wilkinson; Ventura Gdooy; Jaspreet Armstrong; Ochoa Figueroa Discharge Orders/Prescriptions Prescriptions: New ceftriaxone 2 gram recon soln 2 g IV Q24H 38 Days Rx Instructions: stop date 12/03/23. Dx: spine osteomyelitis. Weekly bmp, cbc, ESR, and vanc trough; fax to [phone]. Routine picc care per protocol. vancomycin 1,000 mg recon soln 2 g IV Q12H 38 Days Qty: 76 0RF Rx Instructions: stop date 12/03/23. Dx: spine osteomyelitis. Weekly bmp, cbc, ESR, and vanc trough; fax to [phone]. Routine picc care per protocol. Continued multivitamin [...] Health Service Charges/Coding Visit Charges Inpatient E&M: 41573 Disch Hosp >30min 10/26/23 1521 <Electronically signed by Vin Wheatley DO> Cosigner Signature (if applicable): CC: Dr. Vin Wheatley DO; Dr. Marshall Bear MD~ Signed [facility] Work Phone: 1(268) 930-100503-14-2024 Progress note Author Vin pierre [facility] October 26, 2023 3:13pm Note Date/Time October 26, 2023 9:2 3am [facility] Medical Records Department [address] [place] [address] Progress Note - Hospitalist 10/26/23913 MR#: [id number] Acct: [id number] Name: JARET BATES Rep #:[id number] : 1955 68 From: Vin Wheatley DO PCP: Dr. Marshall Bear MD Status:ADM IN Location: [facility] [id number] Reason for Visit Reason for Visit: [...] 10/22/23 17:14 RMA (Rec: 10/22/23 17:14 RMA [id number]) Nutrition Malnutrition Evidence of Malnutrition Exists Yes [...] 75.9 H, Lymph % (Auto) 13.5 L, Jackson % (Auto) 8.8, Eos % (Auto) 0.8, [...] ok with missing this evening's dose. 10/26/23 9793 <Electronically signed by Vin Wheatley DO> Cosigner Signature (if applicable): CC: ~ Signed [facility] Work Phone: 1(755) 257-898503-14-2024 Progress note Author Ventura Godoy [facility] October 26, 2023 1:02pm Note Date/Time October 26, 2023 1:0 2pm [facility] Medical Records Department [address] [place] [address] Progress Note - Orthopedic 10/26/23 1300 MR#: [id number] Acct: [id number] Name: JARET BATES Rep #:[id number] : 1955 68 From: Ventura Fournier PCP: Dr. Marshall Bear MD Status:ADM IN Location: [facility] [id number]- 1 Subjective Subjective Mr. Bates is seen [...] 10/22/23 17:14 RMA (Rec: 10/22/23 17:14 RMA [id number]) Nutrition Malnutrition Evidence of Malnutrition Exists Yes [...] 75.9 H, Lymph % (Auto) 13.5 L, Jackson % (Auto) 8.8, Eos % (Auto) 0.8, [...] Cosigner Signature (if applicable): CC: ~ Signed [facility] Work Phone: 1(565) 240-228003-14-2024 Progress note Author Tarik Wilkinson [facility] October 26, 2023 10:34am Note Date/Time October 26, 2023 10: 34am [facility] Medical Records Department [address] [place] [address] Progress Note - Infect Disease 10/26/23 1033 MR#: [id number] Acct: [id number] Name: JARET BATES Rep #:[id number] : 1955 68 From: Tarik cao MD PCP: Dr. Marshall Bear MD Status:ADM IN Location: [place] [address] Physical Exam Narrative Feeling much better, no [...] followup in 2 weeks. Wrote rx, d/w telephonic nurse case manager Will follow 10/26/23 1034 <Electronically signed by Tarik Wilkinson MD> Cosigner Signature (if applicable): CC: ~ Signed [facility] Work Phone: 1(349) 425-819303-13-2024 Progress note Author Ochoa Figueroa [facility] October 25, 2023 4:43pm Note Date/Time October 25, 2023 4:4 2pm [facility] Medical Records Department [address] [place] [address] Progress Note - Hospitalist 10/25/23 1633 MR#: [id number] Acct: [id number] Name: JARET BATES Rep #:[id number] : 1955 68 From: Ochoa Mcfarlane PCP: Dr. Marshall Bear MD Status:ADM IN Location: [place] [address] Reason for Visit Reason for Visit: Diagnoses [...] 10/22/23 17:14 RMA (Rec: 10/22/23 17:14 RMA [id number]) Nutrition Malnutrition Evidence of Malnutrition Exists Yes [...] 73.8 H, Lymph % (Auto) 15.5 L, Jackson % (Auto) 9.8, Eos % (Auto) 0.2, [...] MD at 17:34 EST , ADDENDUM: 10/21/23 0858 IMPRESSION: Chronic age related changes and atrophy. [...] EST , Charges/Coding Visit Charges Inpatient E&M: 18827 Subs Hosp L2 10/25/23 1643 <Electronically signed by Ochoa Figueroa MD> Cosigner Signature (if applicable): CC: ~ Signed [facility] Work Phone: 1(231) 451-316103-13-2024 Procedure [facility] 10-25-2023 Consult note Author Tarik Wilkinson [facility] October 25, 2023 12:53pm Note Date/Time October 25, 2023 8:5 9am Medical Records Department [address] [place] [address] Pharmacokinetic/Renal -Consult 10/25/23 0854 MR#: [id number] Acct: [id number] Name: JARET BATES Rep #:[id number] : 1955 68 From: Dave rincon PCP: Dr. Marshall Bear MD Status:ADM IN Y Location: [place] [address] Consult Antibiotic Management Pharmacy has been consulted [...] Date Tarik Wilkinson MD CC: ~ Signed [facility] Work Phone: 1(376) 729-935603-13-2024 Consult note Author Bjorn Bradshaw [facility] October 25, 2023 12:44pm Note Date/Time October 25, 2023 10: 37am [facility] Medical Records Department [facility] [place] [address] Consultation - Orthopedics 10/25/23 1028 MR#: [id number] Acct: [id number] Name: JARET BATES Rep #:[id number] : 1955 68 From: Bjorn Bradshaw MD PCP: Dr. Marshall Bear MD Status:ADM IN Location: [facility] [id number]- 1 HPI Consult Data Date of Consult: [...] today. Severe low back pain, difficulty ambulating. 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 Back pain [...] 10/22/23 17:14 RMA (Rec: 10/22/23 17:14 RMA [id number]) Nutrition Malnutrition Evidence of Malnutrition Exists Yes [...] 73.8 H, Lymph % (Auto) 15.5 L, Jackson % (Auto) 9.8, Eos % (Auto) 0.2, [...] was signed. Charges/Coding Visit Charges Inpatient E&M: 75770 Init Hosp L3 10/25/23 1244 <Electronically signed [...] Zach Cartagena MD; Dr. Melody Mar MD; mEily Wilson DO; Modesto Abarca MD~ Signed [facility] Work Phone: 1(143) 382-671503-12-2024 Progress note Author Ochoa Figueroa [facility] October 24, 2023 5:19pm Note Date/Time October 24, 2023 5:1 9pm [facility] Medical Records Department [address] [place] [address] Progress Note - Hospitalist 10/24/23 1713 MR#: [id number] Acct: [id number] Name: JARET BATES Rep #:[id number] : 1955 68 From: Ochoa Mcfarlane PCP: Dr. Marshall Bear MD Status:ADM IN Location: [place] [address] Reason for Visit Reason for Visit: Diagnoses [...] 10/22/23 17:14 RMA (Rec: 10/22/23 17:14 RMA [id number]) Nutrition Malnutrition Evidence of Malnutrition Exists Yes [...] 75.2 H, Lymph % (Auto) 14.4 L, Jackson % (Auto) 8.9, Eos % (Auto) 0.9, [...] 76.1 H, Lymph % (Auto) 14.6 L, Jackson % (Auto) 8.2, Eos % (Auto) 0.4, [...] 17:34 EST Reading Location ID and State: [facility] / [place] , Service support , ADDENDUM: 10/21/23 1746 IMPRESSION: Chronic age related changes and atrophy. No acute abnormality or significant change. N.B. : The above Results were Read Back by Toribio Giraldo MD to Kayli Granados DO, and understanding confirmed on 10/21/2023 17:39:16 (ET). Electronically Signed: Toribio Giraldo MD at 17:34 EST Reading Location ID and State: [facility] / [place] , Service support , Head/Neck CTA 10/21/23 [...] EST , Charges/Coding Visit Charges Inpatient E&M: 72639 Subs Hosp L2 10/24/23 1719 <Electronically signed by Ochoa Figueroa MD> Cosigner Signature (if applicable): CC: ~ Signed [facility] Work Phone: 1(670) 302-399303-12-2024 Progress note Author Dae Das [facility] October 24, 2023 2:02pm Note Date/Time October 24, 2023 3:0 0pm [facility] Medical Records Department [address] [place] [address] Progress Note - Neurology 10/24/23 1355 MR#: [id number] Acct: [id number] Name: JARET BATES Rep #:[id number] : 1955 68 From: Dae Das MD PCP: Dr. Marshall Bear MD Status:ADM IN Location: [place] [address] Assessment and Plan: Neuro Assessment/Plan JARET BATES, [...] oriented following commands appropriately. Lower suspicion for VARIETY PERFORMER infection at this time. His confusion is [...] 4 Status: Complete hours and PRN Freq: [id number] Protocol: Activity Type Activity Date Activity User [...] 10/22/23 17:14 RMA (Rec: 10/22/23 17:14 RMA [id number]) Nutrition Malnutrition Evidence of Malnutrition Exists Yes [...] 75.2 H, Lymph % (Auto) 14.4 L, Jackson % (Auto) 8.9, Eos % (Auto) 0.9, [...] Cosigner Signature (if applicable): CC: ~ Signed [facility] Work Phone: 1(776) 271-291003-12-2024 Progress note Author Tarik Wilkinson [facility] October 24, 2023 10:19am Note Date/Time October 24, 2023 10: 19am [facility] Medical Records Department [address] [place] [address] Progress Note - Infect Disease 10/24/23 1016 MR#: [id number] Acct: [id number] Name: JARET BATES Rep #:[id number] : 1955 68 From: Tarik cao MD PCP: Dr. Marshall Bear MD Status:ADM IN Location: [place] [id number]- [id number] Physical Exam Narrative Feeling better, back [...] Cosigner Signature (if applicable): CC: ~ Signed [facility] Work Phone: 1(471) 634-670603-11-2024 Consult note Author Tarik Billings [facility] October 23, 2023 8:25pm Note Date/Time October 23, 2023 8:1 9pm Medical Records Department [address] [place] [address] Pharmacokinetic/Renal -Consult 10/23/232018 MR#: [id number] Acct: [id number] Name: BATESJARET QUESADA Rep #:[id number] : 1955 68 From: Tarik Billings PCP: Dr. Marshall Bear MD Status:ADM IN Y Location: [place] [address] Consult Antibiotic Management Pharmacy has been consulted [...] was 14.3 and slightly below desired level zx15-23cyf/ml. Recommend an increase in dose to 1750mg iv q12h with new trough level before 4th dose given. Pharmacy Service will continue to monitor and adjust dosing as required. Follow-Up Labs Follow-Up Labs: Trough: Vancomycin (3.13.24 @0730) 10/23/232024 <Electronically signed by Tarik Billings> Date _ Tarik Billings Cosigner Signature (if applicable): Date CC: ~ Signed [facility] Work Phone: 1(436) 179-221203-11-2024 Consult note Author Tarik Wilkinson [facility] October 23, 2023 3:13pm Note Date/Time October 23, 2023 3:1 3pm [facility] Medical Records Department [address] [place] [address] Consultation - Infectious Dx 10/23/23 1504 MR#: [id number] Acct: [id number] Name: JARET BATES Rep #:[id number] : 1955 68 From: Tarik cao MD PCP: Dr. Marshall Bear MD Status:ADM IN Location: [place] [address] Assessment & Plan Assessment/Plan (1) Altered mental [...] to OR 07/18/[address] Godoy at [facility] for repeat laminectomy L4-5 on the left [...] performed and neg except as noted above. 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 Back pain [...] 10/22/23 17:14 RMA (Rec: 10/22/23 17:14 RMA [id number]) Nutrition Malnutrition Evidence of Malnutrition Exists Yes [...] 76.1 H, Lymph % (Auto) 14.6 L, Jackson % (Auto) 8.2, Eos % (Auto) 0.4, [...] 11:52 EDT Reading Location ID and State: [address] [place] [address] , Service support , ADDENDUM: 10/23/23 1318 [...] 11:52 EDT Reading Location ID and State: [address] [place] [address] , Service support , 10/23/23 1513 <Electronically signed by Tarik Wilkinson MD> Cosigner Signature (if applicable): CC: Arabella Walter; Saida Cantu; Tray Carreon; Susie Augustin MD; Jessica Ang MD; Claudy Tripathi MD; Dr. Meliton Coronel MD; Dr. Sara Reaves MD; Dr. Ben Velasco MD; Dr. Ivonne Holloway MD; Dr. Ham Giron MD; Dr. Adelso Whitehead MD;Dr. Marhsall Bear MD; Dr. Ventura Godoy DO; Dr. Monster Marina DO; Dr. Cheryl Gandhi MD; Dr. Bull Sanchez MD; Dr. Dae Das MD; Dr. Tarik Wilkinson MD; Dr. Zach Cartagena MD; Dr. Melody Mar MD; Emily Wilson DO; Modesto Abarca MD~ Signed [facility] Work Phone: 1(292) 396-956803-11-2024 Consult note Author Ventura Godoy [facility] October 23, 2023 2:59pm Note Date/Time October 23, 2023 2:3 2pm [facility] Medical Records Department [address] [place] [address] Consultation 10/23/23 1426 MR#: [id number] Acct: [id number] Name: JARET BATES Rep #:[id number] : 1955 68 From: Ventura Fournier PCP: Dr. Marshall Bear MD Status:ADM [facility] Consult Date of Consult: 10/23/23 [...] without contrast. It was turned down by [employer] and it was specifically turned down by Dr. Vipul Estrella. 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 Request of [...] is there. This physician and his company, [employer], failed to consider that possibility and turned [...] This is a perfect illustration of why third-republican pre-[employer] companies should be outlawed. Their decisions [...] as he is in the hospital. 10/23/23 7664 <Electronically signed by Ventura Godoy DO> Cosigner [...] Emily Wilson DO; Modesto Abarca MD~ Signed [facility] Work Phone: 1(277) 814-585103-11-2024 Progress note Author Ochoa Figueroa [facility] October 23, 2023 1:57pm Note Date/Time October 23, 2023 1:5 7pm [facility] Medical Records Department [address] [place] [address] Progress Note - Hospitalist 10/23/23 1348 MR#: [id number] Acct: [id number] Name: JARET BATES Rep #:[id number] : 1955 68 From: Ochoa Mcfarlane PCP: Dr. Marshall Bear MD Status:ADM IN Location: [place] [address] Reason for Visit Reason for Visit: Diagnoses [...] 10/22/23 17:14 RMA (Rec: 10/22/23 17:14 RMA [id number]) Nutrition Malnutrition Evidence of Malnutrition Exists Yes [...] 76.1 H, Lymph % (Auto) 14.6 L, Jackson % (Auto) 8.2, Eos % (Auto) 0.4, [...] 76.1 H, Lymph % (Auto) 14.6 L, Jackson % (Auto) 8.2, Eos % (Auto) 0.4, [...] 17:34 EST Reading Location ID and State: [facility] / [place] , Service support , ADDENDUM: 10/21/23 1746 IMPRESSION: Chronic age related changes and atrophy. No acute abnormality or significant change. N.B. : The above Results were Read Back by Toribio Giraldo MD to Kayli Granados DO, and understanding confirmed on 10/21/2023 17:39:16 (ET). Electronically Signed: Toribio Giraldo MD at 17:34 EST Reading Location ID and State: [facility] / [place] , Service support , Head/Neck CTA 10/21/23 [...] EST , Charges/Coding Visit Charges Inpatient E&M: 64607 Subs Hosp L3 10/23/23 1357 <Electronically signed by Ochoa Figueroa MD> Cosigner Signature (if applicable): CC: ~ Signed [facility] Work Phone: 1(430) 689-755403-10-2024 Progress note Author [facility] October 22, 2023 2:14pm Note Date/Time October 22, 2023 10: 49am [facility] Medical Records Department [address] [place] [address] Progress Note - Hospitalist 10/22/23 1047 MR#: [id number] Acct: [id number] Name: JARET BATES Rep #:[id number] : 1955 68 From: Ochoa Mcfarlane PCP: Dr. Marshall Bear MD Status:ADM IN Location: [place] [id number]- 1 Reason for Visit Reason for Visit: [...] % (Auto) 69.6, Lymph % (Auto) 20.2, Jackson% (Auto) 9.6, Eos % (Auto) 0.0, Baso [...] Clarity Clear, Urine pH 7.0, Ur Specific [place] 1.010, Urine Protein 30 H, Urine Glucose [...] (Auto) 70.7 H, Lymph % (Auto) 18.4L, Jackson % (Auto) 10.0, Eos % (Auto) 0.0, [...] 2.10 H, AST 22, ALT 22, Alkaline Eaobbbabqxn72, Total Protein 6.7, Albumin 3.2, Globulin 3.5, [...] % (Auto) 69.6, Lymph % (Auto) 20.2, Jackson% (Auto) 9.6, Eos % (Auto) 0.0, Baso [...] Clarity Clear, Urine pH 7.0, Ur Specific [place] 1.010, Urine Protein 30 H, Urine Glucose [...] (Auto) 70.7 H, Lymph % (Auto) 18.4L, Jackson % (Auto) 10.0, Eos % (Auto) 0.0, [...] MD at 17:34 EST , ADDENDUM: 10/21/23 3774 IMPRESSION: Chronic age related changes and atrophy. No acute abnormality or significant change. N.B. : The above Results were Read Back by Toribio Giraldo MD to Kayli Granados DO, and understanding confirmed on 10/21/2023 17:39:16 (ET). Electronically Signed: Toribio Giraldo MD at 17:34 EST Reading Location ID and State: [facility] / [place] , Service support , Head/Neck CTA 10/21/23 [...] 17:49 EST Reading Location ID and State: [facility] / [place] , Service support , Chest X-Ray 10/21/23 18:05 IMPRESSION: No definite acute or significant abnormality seen. Electronically Signed: Toribio Giraldo MD at 19:00 EST Reading Location ID and State: [facility] / [place] , Service support , Charges/Coding Addendum Addendum: [...] imagingis 40 minutes. Visit Charges Inpatient E&M: 72156 Subs Hosp L3 10/22/23 1414 <Electronically signed by Ochoa Figueroa MD> Cosigner Signature (if applicable): CC: ~ Signed [facility] Work Phone: 1(458) 143-314703-10-2024 Consult note Author Bull Sanchez [facility] October 22, 2023 1:48pm Note Date/Time October 22, 2023 1:3 6pm [facility] Medical Records Department [address] [place] [address] Consultation - Neurology 10/22/23 1329 MR#: [id number] Acct: [id number] Name: JARET BATES Rep #:[id number] : 1955 68 From: Bull Mcfarlane PCP: Dr. Marshall Bear MD Status:ADM IN Location: [place] [address] Assessment and Plan: Neuro Assessment/Plan Assessment Examination [...] continuation of empiric antibiotics for post op VARIETY PERFORMER infection while awaiting imaging result. -recommend ID [...] imaging of his lower back since surgery. [facility] Medical History (Updated 10/21/23 @ 20:[address] 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 Back pain [...] 4 Status: Active hours and PRN Freq: [id number] Protocol: Activity Type Activity Date Activity User [...] % (Auto) 69.6, Lymph % (Auto) 20.2, Jackson % (Auto) 9.6, Eos % (Auto) 0.0, [...] Clarity Clear, Urine pH 7.0, Ur Specific [place] 1.010, Urine Protein 30 H, Urine Glucose [...] 70.7 H, Lymph % (Auto) 18.4 L, Jackson % (Auto) 10.0, Eos % (Auto) 0.0, [...] 17:34 EST Reading Location ID and State: [facility] / [place] , Service support , Head/Neck CTA 10/21/23 [...] 2 spray 10/21/23 20:32 Fluticasone 0.05% 1 [place] Nasal.Sry NASAL BID PRN allergies, congestion Gabapentin [...] mls @ 15 mls/hr 10/21/23 20:37 IV .[id number] PRN Saline Flush Sodium Chloride 250 mls @ 15 mls/hr 10/21/23 20:37 IV .[id number] PRN Additional IVPB Infusion Ceftriaxone Sodium 2 [...] 10/22/23 11:49 IV 10/23/23 00:09 75 mls/hr .[id number] AMADO Administration Insulin Human Lispro 0 unit 10/21/23 22:00 10/22/23 11:55 Insulin Lispro 100 Unit/Ml Insuln.Pen SC Not Given ACHS [facility] Protocol Labetalol HCl 10 - 20 mg 10/21/23 20:32 Labetalol (Prefilled) 20 Mg/4 Ml IV Q10M PRN PRN to Maintain BP Goals Linaclotide 72 mcg 10/22/23 10:00 Linaclotide 72 Mcg Capsule PO DAILY AMADO Melatonin 3 mg 10/21/23 20:32 Melatonin 3 [...] Emily Wilson DO; Modesto Abarca MD~ Signed [facility] Work Phone: [phone] 659-621103-10-2024 Progress note Author Sara Reaves [facility] October 22, 2023 6:21am Note Date/Time October 22, 2023 3:1 2am [facility] Medical Records Department [address] [place] [address] Progress Note - Hospitalist 10/22/23310 MR#: [id number] Acct: [id number] Name: JARET BATES Rep #:[id number] : 1955 68 From: Sara Reaves MD PCP: Dr. Marshall Bear MD Status:ADM IN Location: [place] [address] Hospitalist Note Patient with onset fever, admission [...] Cosigner Signature (if applicable): cc: ~* Signed [facility] Work Phone: [phone] 835-290103-10-2024 Discharge summary Author Kayli Granados [facility] October 22, 2023 12:08am Note Date/Time October 21, 2023 5:23 pm [facility] Medical Records Department [address] [place] [address] Emergency Department Summary 10/21/23 MR#: [id number] Acct: [id number] Name: JARET BATES Rep #:[id number] : 1955 68 From: Kayli Granados PCP: Dr. Marshall Bear MD Status:ADM IN Location: [place] [address] HPI History of Present Illness Chief Complaint: [...] that hespeaks normally. He denies recent illness. [facility] Medical History (Updated 10/21/23 @ 20:[address] 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 Call [facility] ([phone]) or report to the closest Emergency Room. Call 911 if necessary. 10/22/23 0008 <Electronically signed by Kayli Granados DO> Cosigner Signature (if applicable): CC: Dr. Marshall Bear MD ~ Signed [facility] Work Phone: [phone]) 992-766803-09-2024 History and physical note Author Sara Reaves [facility] October 21, 2023 8:19pm Note Date/Time October 21, 2023 7:25 pm [facility] Medical Records Department [address] [place] [address] H&P Exam - Hospitalist 10/21/231923 MR#: [id number] Acct: [id number] Name: JARET BATES Rep #:[id number] : 1955 68 From: Sara Reaves MD PCP: Dr. Marshall Bear MD Status:ADM IN Location: [place] [address] HPI - General General Date of Admission: 10/21/23 Date of Service: 10/21/23 Chief Complaint: Expressive aphasia. HPI Narrative The patient is a 68 y/o M w/ PMHx: Asthma, CAD s/p CABG, BPH, RLS, Tobacco use, Chronic back pain with radidulopathy s/p prior surgical intervention, Diabetes mellitus type II with chronic neuropathy who presents to the [facility] ED on 10/21/2023 as a stroke alert [...] ED patient placed on maintenance IV fluids. [facility] Medical History (Updated 10/21/23 @ 20:[address] 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 Back pain [...] extremities, no focal deficits, strength, finger-nose and ztuq-gd-vjii appropriate, sensation intact, equivocal Babinski Psychiatric: Affect [...] % (Auto) 69.6, Lymph % (Auto) 20.2, Jackson% (Auto) 9.6, Eos % (Auto) 0.0, Baso [...] Clarity Clear, Urine pH 7.0, Ur Specific [place] 1.010, Urine Protein 30 H, Urine Glucose [...] 17:34 EST Reading Location ID and State: [facility] / [place] , Service support , ADDENDUM: 10/21/23 1746 IMPRESSION: Chronic age related changes and atrophy. No acute abnormality or significant change. N.B. : The above Results were Read Back by Toribio Giraldo MD to Kayli Granados DO, and understanding confirmed on 10/21/2023 17:39:16 (ET). Electronically Signed: Toribio Giraldo MD at 17:34 EST Reading Location ID and State: [facility] / [place] , Service support , Head/Neck CTA 10/21/23 17:19 IMPRESSION: No acute abnormality. No large vessel occlusions. 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 Electronically Signed: Toribio Giraldo MD at 17:49 EST Reading Location ID and State: [facility] / [place] , Service support , ADDENDUM: 10/21/23 1758 [...] with chronic neuropathy who presents to the [facility] ED on 10/21/2023 as a stroke alert [...] 16 minutes. Charges/Coding Visit Charges Inpatient E&M: 58828 Init Hosp L3 Procedures Hospitalists Procedures: 60131 Advncd Care Plan 30 Min 10/21/232018 <Electronically signed by Sara Reaves MD> Cosigner Signature (if applicable): CC: Dr. Sara Reaves MD; Dr. Marshall Bear MD~ Signed [facility] Work Phone: 1(425) [phone] Miscellaneous Notes* Discharge Instr - Nursing - Velia Ravi RN - 10/11/2023 9:32 AM EST The patient received a copy of EGD discharge instructions that contain information for how to contact the physician who performed the procedure and when to seek medical care. [facility] Nurse Note* Velia Ravi RN - 10/11/2023 [...] phase II via cart. Left lateral position. Ffxinjq6zkrtca, but responds to verbal stimuli. Color normal; skin warm and dry. Respirations wnl and unlabored. Abdomen soft and with + bowel sounds in quads X 4. Patient resting comfortably. Family at bedside. Dr. Marshall at bedside to review pr ocedure and recommendations. Velia Ravi RN documented in this encounterZ[facility]02-28-2024 History and physical note * Ben Marshall [...] 06/16/2017 Added automatically from request for surgery [id number] Impaired fasting glucose 07/15/2016 laparoscopic cholecystectomy 2022 [...] Ben Marshall III, MD documented in this encounterZ[facility]ville [facility]02-15-2024 NoteHNO ID: [id number] Author: JOSE JUAN PENA MD Service: ? Author Type: Physician Type: Progress Notes Filed: 09/28/2023 08:29 Note Text: Called by patient's PCP Dr. Zonia Batista for increasing epigastric symptoms. Patient had prior upper endoscopy before his cholecystectomy which did demonstrate gastritis. Will plan for urgent upper endoscopy.[facility] History of Present illness Narrative* Jose Juan Pena MD - 09/28/2023 8:24 AM EST Called by patient's PCP Dr. Zonia Batista for increasing epigastric symptoms. Patient had prior upper endoscopy before his cholecystectomy which did demonstrate gastritis. Will plan for urgent upper endoscopy. documented in this [facility]01-[facility]-2024 Evaluation note* Diagnosis Onset Date Resolution Status [...] radiculopathy at L5 acute S/P laminectomy acute [facility] Work Phone: [phone] Evaluation note* Diagnosis Onset Date Resolution Status [...] diseases acute Abdominal pain acute Bilirubinuria acute [facility] Work Phone: [phone] 748-127301-01-2024 Evaluation note* Diagnosis Onset Date Resolution Status [...] Altered mental status acute Expressive aphasia acute [facility] Work Phone: [phone]) 484-128801-01-2024 Evaluation note* Diagnosis Onset Date Resolution Status [...] status acute Discitis of lumbar region ac [place] Expressive aphasia acute S/P laminectomy acute [facility] Work Phone: [phone] 149-272812-07-2023 Discharge summary Author Ventura Godoy [facility] July 20, 2023 2:13pm Note Date/Time July 20, 2023 2 :13pm [facility] Medical Records Department [address] [place] [address] Discharge Summary 07/20/23 1410 MR#: [id number] Acct: [id number] Name: JARET BATES Rep #:[id number] : 1955 68 From: Ventrua Fournier PCP: Dr. Marshall Bear MD Status:ADM IN Location: [place] [address]34-1 Providers Date of Admission: 07/18/23 Primary Care [...] Bear MD; Dr. Ventura Godoy DO~ Signed [facility] Work Phone: [phone]) [phone] Discharge summary Author Ventura Godoy [facility] July 20, 2023 4:00pm Note Date/Time July 20, 2023 2 :10pm [facility] Medical Records Department [address] [place] [address] Instructions for Home/Discharge Instructions 07/20/23 1408 MR#: [id number] Acct: [id number] Name: JARET BATES Rep #:[id number] : 1955 68 From: Ventura Fournier PCP: [...] Provider: Ventura Godoy Primary Care Provider: Marshall Baer Consulting Providers: Dimas Clinton; Vipul Vazquez Discharge [...] 07/20/23 1600<Electronically signed by Ventura Godoy DO>Ventura Godoy DO CC: Dr. Marshall Bear MD; Dr. Vipul Vazquez DO; Dr. Dimas Clinton MD ~ Signed [facility] Work Phone: [phone]) [phone] Progress note Author Vipul [facility] July 19, 2023 5:58pm Note Date/Time July 19, 2023 5 :58pm [facility] Medical Records Department [address] [place] [address] Progress Note - Hospitalist 07/19/231752 MR#: [id number] Acct: [id number] Name: JARET BATES Rep #:[id number] : 1955 68 From: Vipul Vazquez DO PCP: Dr. Marshall Bear MD Status:ADM IN Location: [place]3 OT081-2 Reason for Visit Reason for Visit: Diagnoses [...] (Auto) 77.7 H, Lymph % (Auto) 13.6L, Jackson % (Auto) 7.9, Eos % (Auto) 0.1, [...] 25 minutes Charges/Coding Visit Charges Inpatient E&M: 56158 Subs Hosp L1 07/19/23 1758 <Electronically signed by Vipul Vazquez DO> Cosigner Signature (if applicable): CC: ~ Signed [facility] Work Phone: 1(501) 345-903012-06-2023 Progress note Author Ventura Godoy [facility] July 19, 2023 1:09pm Note Date/Time July 19, 2023 1 :09pm [facility] Medical Records Department [address] [place] [address] Progress Note - Orthopedic 07/19/23 1308 MR#: [id number] Acct: [id number] Name: JARET BATES Rep #:[id number] : 1955 68 From: Ventura Fournier PCP: Dr. Marshall Bear MD Status:ADM IN Location: [facility] VK510-3 Subjective Subjective Jaret is doing well on [...] (Auto) 77.7 H, Lymph % (Auto) 13.6L, Jackson % (Auto) 7.9, Eos % (Auto) 0.1, [...] Cosigner Signature (if applicable): CC: ~ Signed [facility] Work Phone: [phone]) 550-620612-05-2023 Progress note Author Dimas Clinton [facility] July 18, 2023 6:00pm Note Date/Time July 18, 2023 1 :29pm [facility] Medical Records Department [address] [place] [address] Progress Note - Hospitalist 07/18/23 1328 MR#: [id number] Acct: [id number] Name: JARET BATES Rep #:[id number] : 1955 68 From: Dimas cannon MD PCP: Dr. Marshall Bear MD Status:ADM IN Location: [place] UV651-1 Subjective Subjective 68-year-old male presents to the [...] DVT: SCDs Charges/Coding Visit Charges Inpatient E&M: 66839 Subs Hosp L2 07/18/23 1800 <Electronically signed by Dimas Clinton MD> Cosigner Signature (if applicable): CC: ~ Signed [facility] Work Phone: 1(790) 276-929912-05-2023 Procedure [facility] 07-17-2023 History and physical note Author Ventura Godoy [facility] July 17, 2023 2:14pm Note Date/Time July 17, 2023 2 :14pm [facility] Medical Records Department [address] [place] [address] History & Physical Exam 07/17/23 1413 MR#: [id number] Acct: [id number] Name: JARET BATES Rep #:[id number] : 1955 68 From: Ventura Fournier PCP: Dr. Marshall Bear MD Status:PRE [facility] Location: [facility] History and Physical [id number] Acct: [id number] Name: JARET BATES Rep #: [id number] : 1955 Provider: Dr. Ventura Godoy DO Age/Sex: 68/M Location: [facility] Status: Signed Intake Vital Signs 12/20/2305:28 05/11/2317:57 [...] facet joint Asthma Atherosclerotic heart disease of kiowa tribe coronary artery without angina pectoris Back pain [...] Bear MD; Dr. Ventura Godoy DO~ Signed [facility] Work Phone: 1(160) 651-488610-02-2023 Procedure [facility] 05-02-2023 Discharge summary Author Vin Dawkins [facility] May 02, 2023 12:52pm Note Date/Time May 02, 2023 12:52pm [facility] Therapy [facility] [place] [address] / REHABILITATION SERVICES DISCHARGE SUMMARY MR#: [id number] Acct: [id number] Name: JARET BATES Rep #: [id number] : 1955 68 From: Vin Dawkins DPT, [...] Dr. Ventura Godoy, DO ~ EBG Signed [facility] Work Phone: 1([phone]) 552-968504-07-2023 NoteHNO ID: [id number] Author: Edilia Hunter PA-C Service: ? Author Type: Physician Correspondence Section Supervisor Type: Progress Notes Filed: 11/22/2022 4:57 PM Note Text: FOLLOW UP VISIT - CHOLECYSTECTOMY NAME: Jaret Bates CLINIC NO.: [id number] DATE OF SERVICE: 11/18/2022 : 1955 REFERRING [...] to follow-up with me as needed. [facility] Instructions* Patient Instructions* Edilia Hunter PA-C - 11/18/2022 10:01 AM EDT The following instructions are important for you related to your office visit today with the [facility] General Surgeons. INSTRUCTIONS FOLLOWING YOU [...] you should contact our office immediately @ [phone] and ask to be transferred to the General Surgery department. documented in this encounterZ[facility]04-07-2023 History of Present illness Narrative* Edilia Hunter PA-C - 11/18/2022 9:44 AM EDT FOLLOW UP VISIT - CHOLECYSTECTOMY NAME: Jaret Ch [facility] NO.: [id number] DATE OF SERVICE: 11/18/2022 : 1955 REFERRING [...] needed. Edilia Hunter PA-C documented in this encounterZanesville City Hospital04-07-2023 Nurse Note* Clara Lira RN - 11/18/2022 [...] 2022 Clara Lira RN documented in this encounterZanesville City [facility]04-03-2023 Miscellaneous Notes* Telephone Encounter - Carol Vega RN - 11/14/2022 4:33 PM EDT Patient was evaluated at [facility] ER, CT scan of the abdomen and [...] at that hospital andis doing surgeries in [place] today. voiced understanding. Alethea # [phone] * Telephone Encounter - Carol Vega RN [...] of the pain. They use [facility] in [place]. Alethea also wanted us to know that they tried reaching out, over the weekend to the provider number that is on their discharge paperwork, but that number is to [facility] and the corn cutter operator refused to page Dr. Pena, stating that he does not work at their facility. I apologized to Alethea, stating that I would reach out and see who can update that paperwork and correct that error. Carol Vega RN documented in this encounterZanesville [facility]03-31-2023 NoteHNO ID: [id number] Author: Joni Crooks RN Service: Nursing Author Type: Registered Nurse Type: Nursing Progress Note Filed: 11/11/2022 12:59 PM Note Text: PT up to bathroom, ambulated with close supervision, tolerated well. 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. Copy made for Nitish Norris CNP and original sent to [facility]. Araceli Davis LPN * Telephone Encounter - Araceli Davis LPN - 11/09/2022 9:30 AM EDT Called and spoke with Katerina at [facility], she will fax last office visit and cardiac records. Araceli Davis LPN * Telephone Encounter - Araceli Davis LPN - 11/09/2022 9:22 AM EDT Received labs from Dr. Bear's office. Copy made for Nitish Norris CNP and original sent to [place] through [facility]. Araceli Davis LPN * Telephone Encounter - Araceli Davis LPN - 11/09/2022 8:54 AM EDT Received a call from [facility] stating Dr. Mckeon office has moved and new phone number is [phone]. I called Dr. Linda craig office and [...] Called and left message with Katerina at [facility] to return call. Callback number given. Araceli Davis LPN * Telephone Encounter - Nitish Norris APRN.DAMON - 11/09/2022 6:18 AM EDT Please request most recent labs, especially A1c from PCP's office. And cardiac records, last OV from [facility]. DOS 11/11/2022 documented in this encounterZanesville City Hospital03-24-2023 History and physical note * Nitish Norris [...] COVID-19 original vaccine, age 12+ yr, monovalent ([employer]- BIONTECH - PURPLE TOP) 11/12/2020 Imm Admin: [...] pain.the patient was initially seen by Edilia Hunetr in July 2022 for evaluation for screening [...] fevers. Neurological: No history of TIA's, stroke, VARIETY PERFORMER tumor, impaired sensorium, hemiplegia, paraplegia orquadraplegia. No neurological symptoms or problems. Respiratory: Positive for: asthma and COPD. Negative for: pneumonia within 6 weeks, tobacco use, URI < 2 weeks and obstructive sleep apnea. Cardiovascular: Positive for: anticoagulation therapy (ASA), CAD, hyperlipidemia (on rx) and open heart surgery Negative for: arrhythmia, atrial fibrillation, chest pain, CHF, congenital heart defect, DVT/PE, hypertension, recent MA, murmur/valvular heart disease, PVD and valve surgery. [...] for: joint pain. Skin: +rosacea, following [facility] PAST MEDICAL HISTORY Diagnosis Date Asthma CAD [...] 06/16/2017 Added automatically from request for surgery [id number] Impaired fasting glucose 07/15/2016 Myalgia and myositis, [...] A1C Date Value 04/09/2019 Test sent to [facility]. % 11/05/2018 Test sent to [facility]. % 06/28/2018 Test sent to [facility]. % 07/17/2017 Test sent to [facility]. % 06/23/2016 Test sent to [facility]. % 06/23/2016 6.1 No results found for this or any previous visit (from the past 8760 hour(s)). No results found for this or any previous visit (from the past 31782 hour(s)). Assessment Patient has the following medical conditions which may affect nereida-operative course: Other hyperlipidemia Assessment: c/w statin CAD (coronary artery disease) Assessment: CABG x3, 2011, following [facility], daily ASA, denies CP, palpitations [...] equal to 35 kg/m^2 STOP-Bang Score: 4 [id number] Score: Age: 65-74 Sex: male CHF history: No Hypertension history: Yes Stroke/TIA/thromboembolism history: No Vascular disease history: Yes Diabetes history: Yes [id number] Score: 4 ARISCAT Score: Age: 51-80 Preoperative [...] 11:15 AM PAGER/CONTACT #: documented in this encounterZanesville City Hospital03-24-2023 Instructions* Patient Instructions* Nitish Norris APRN.CNP - 11/04/2022 11:12 AM EDT PATIENT PREOPERATIVE INSTRUCTIONS No ref. provider found has scheduled you for your procedure at this surgery center: [facility]: [phone] -- [address] [address]. Please read below carefully for your personalized [...] Procedures: - YOU MUST HAVE A RESPONSIBLE OCCUPATIONAL THERAPIST'S ASSISTANT TAKE YOU HOME. A BAND LINING BANDER OR FUNERAL HOME DIRECTOR CANNOT BE MADE A RESPONSIBLE OCCUPATIONAL THERAPIST'S ASSISTANT. - We recommend that a responsible [...] Advance Directive, please fax a copy to [phone] or email to for it to be [...] day. Nitish Norris APRN.DAMON documented in this encounterZanesville City Hospital03-10-2023 NoteHNO ID: [id number] Author: Jose Juan Pena MD Service: ? [...] 06/16/2017 Added automatically from request for surgery [id number] Impaired fasting glucose 07/15/2016 Myalgia and myositis, [...] 5 YRS/> REDUCIBLE 2 (more content not included)...[facility]03-10-2023 History of Present illness Narrative* Jose [...] 06/16/2017 Added automatically from request for surgery [id number] Impaired fasting glucose 07/15/2016 Myalgia and myositis, [...] Procedure: LAPAROSCOPIC CHOLECYSTECTOMY WITH INTRAOPERATIVE CHOLEANGIOGRAM - 52115-175 Planned antibiotic: Ancef 2gm IVPB fashion show director to OR SCDs needed - Yes Correspondence Section Supervisor Needed - No Diagnoses: (K80.20) Calculus of gallbladder without cholecystitis without obstruction (primary encounter diagnosis) (R10.11) RUQ pain My findings have been communicated to via shared medical record. This note will be forwarded to No primary care provider on file.. Jose Juan Pena MD documented in this encounterZanesville City Hospital03-09-2023 Miscellaneous Notes* Telephone Encounter - Dayron Orozco LPN - 10/20/2022 9:40 AM EST Called and spoke to [facility], CT scan dept. Pushed image per Dr Pena request. Dayron Orozco LPN documented in this encounterZanesville City Hospital02-24-2023 NoteHNO ID: [id number] Author: Edilia Hunter PA-C Service: ? Author Type: Physician Correspondence Section Supervisor Type: Progress Notes Filed: 10/13/2022 2:07 PM Note Text: FOLLOW UP VISIT - ENDOSCOPY NAME: Jaret Bates [facility] NO.: [id number] DATE OF SERVICE: 10/07/2022 : 1955 REFERRING [...] which included preparing to see the patient, isaq-xu-delb patient care, completing clinical documentation, obtaining and/or reviewing separately obtained history, counseling and educating the patient/family/caregiver, independently interpreting results (not separately reported), and communicating results to the patient/family/caregiver. [facility]02-24-2023 Instructions* Patient Instructions* Edilia Hunter PA-C - [...] to your office visit today with the [facility] General Surgeons. INSTRUCTIONS FOLLOWING A [...] you should contact our office immediately @ [phone] and ask to be transferred to the General Surgery department. documented in this encounterZanesville City Hospital02-24-2023 History of Present illness Narrative* Edilia Hunter PA-C - 10/07/2022 3:33 PM EST FOLLOW UP VISIT - ENDOSCOPY NAME: Jaret Bates [facility] NO.: [id number] DATE OF SERVICE: 10/07/2022 : 1955 REFERRING [...] which included preparing to see the patient, qncx-mi-zykp patient care, completing clinical documentation, obtaining and/or reviewing separately obtained history, counseling and educating the patient/family/caregiver, independently interpretin g results (not separately reported), and communicating results to the patient/family/caregiver. Edilia Hunter PA-C documented in this encounterZanesville City Hospital02-14-2023 Nurse Note* Clementina Burnette RN - 09/27/2022 [...] comfortably on left side. documented in this encounterZanesville City Hospital02-14-2023 History and physical note * Jose Juan [...] 06/16/2017 Added automatically from request for surgery [id number] Impaired fasting glucose 07/15/2016 Myalgia and myositis, [...] patient was offered a surgery/procedure at [facility]. I have counseled the patient [...] which included preparing to see the patient, pjvb-gy-mdqc patient care, completing clinical documentation, obtaining and/or reviewing separately obtained history, performing a medically appropriate examination, and care coordination (not separ ately reported). Edilia Hunter PA-C * Jos eJuan Pena MD - 09/27/2022 8:15 AM EST [...] 06/16/2017 Added automatically from request for surgery [id number] Impaired fasting glucose 07/15/2016 Myalgia and myositis, [...] patient was offered a surgery/procedure at [facility]. I have counseled the patient [...] which included preparing to see the patient, mgfp-wk-vlyk patient care, completing clinical documentation, obtaining and/or reviewing separately obtained history, performing a medically appropriate examination, and care coordination (not separ ately reported). Edilia Hunter PA-C documented in this encounterZanesville City Hospital02-03-2023 Miscellaneous Notes* Telephone Encounter - Fela Ambriz - 09/16/2022 10:46 AM EST EGD added to procedure Fela Ambriz Helicopter Crew Chief * Telephone Encounter - Aspen Sainz - 09/16/2022 9:35 AM EST Pt calling to inform that Dr. Bear had ordered EGD for pt. There is an order in [place] from [facility]. Pt asking if that can be done the same day as the colonoscopy. Please contact patient to confirm date. Aspen Sainz documented in this encounterZanesville City Hospital02-03-2023 Miscellaneous Notes* Telephone Encounter - Jose Juan Pena MD - 09/16/2022 6:21 AM EST Called by patient's PCP Dr. Batista who also is having upper symptoms will add EGD and perform orosco biopsies. * Telephone Encounter - Fela Ambriz - 08/09/2022 1:32 PM EST 09/27/2022 COLON ASC documented in this encounterZanesville City Hospital12-27-2022 Nurse Note* Mel Alonso LPN - 08/09/2022 [...] 2016 Mel Alonso LPN documented in this encounterZanesville City Hospital12-27-2022 History of Present illness Narrative* Edilia Hunter [...] 06/16/2017 Added automatically from request for surgery [id number] Impaired fasting glucose 07/15/2016 Myalgia and myositis, [...] patient was offered a surgery/procedure at [facility]. I have counseled the patient [...] which included preparing to see the patient, seas-bn-kjki patient care, completing clinical documentation, obtaining and/or reviewing separately obtained history, performing a medically appropriate examination, and care coordination (not separ ately reported). Edilia Hunter PA-C documented in this encounterZanesville City Hospital11-03-2017 History of Past illness Narrative* Problem Noted Date Resolved Date Hemorrhoids, internal 06/16/2017 01/15/2018 Overview: Added automatically from request for surgery [id number] Bright red rectal bleeding 06/16/201707/17 Overview: Added automatically from request for surgery [id number] History of colonic polyps 06/16/20172016 Overview: Added automatically from request for surgery [id number] Calculus of gallbladder with out cholecystitis without [...] Laboratory test 07/16/2012 11/04/2014 Overview: PSA done [facility] 07/06/2012 - 0.89 Pain in joint, shoulder region 04/06/2012 0 04/12/2016 GERD (gastroesophageal reflux disease) 0 07/17/2017 Diabetes mellitus 06/25/2010 09/04/2012 Headache(784.0) 10/30/2007 01/15/2018 Dysthymic disorder 07/17/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) Other malaise and fatigue 2015 Other specified disease of hair and hair follicl es 11/04/2014 documented as of this encounter (statuses as of 08/18/2022) [facility] History of Past illness Narrative* Problem Noted Date Resolved Date Hemorrhoids, internal 06/16/2017 01/15/2018 Overview: Added automatically from request for surgery [id number] Bright red rectal bleeding 06/16/201707/17 Overview: Added automatically from request for surgery [id number] History of colonic polyps 06/16/20172016 Overview: Added automatically from request for surgery [id number] Calculus of gallbladder with out cholecystitis without [...] Laboratory test 07/16/2012 11/04/2014 Overview: PSA done [facility] 07/06/2012 - 0.89 Pain in joint, shoulder region 04/06/2012 0 04/12/2016 GERD (gastroesophageal reflux disease) 0 07/17/2017 Diabetes mellitus 06/25/2010 09/04/2012 Headache(784.0) 10/30/2007 01/15/2018 Dysthymic disorder 07/17/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) Other malaise and fatigue 2015 Other specified disease of hair and hair follicl es 11/04/2014 documented as of this encounter (statuses as of 09/16/2022) [facility] of Past illness Narrative* Problem Noted Date Resolved Date Hemorrhoids, internal 06/16/2017 01/15/2018 Overview: Added automatically from request for surgery [id number] Bright red rectal bleeding 06/16/201707/17 Overview: Added automatically from request for surgery [id number] History of colonic polyps 06/16/20172016 Overview: Added automatically from request for surgery [id number] Calculus of gallbladder with out cholecystitis without [...] Laboratory test 07/16/2012 11/04/2014 Overview: PSA done [facility] 07/06/2012 - 0.89 Pain in joint, shoulder region 04/06/2012 0 04/12/2016 GERD (gastroesophageal reflux disease) 0 07/17/2017 Diabetes mellitus 06/25/2010 09/04/2012 Headache(784.0) 10/30/2007 01/15/2018 Dysthymic disorder 07/17/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) Other malaise and fatigue 2015 Other specified disease of hair and hair follicl es 11/04/2014 documented as of this encounter (statuses as of 09/16/2022) [facility] of Past illness Narrative* Problem Noted Date Resolved Date Hemorrhoids, internal 06/16/2017 01/15/2018 Overview: Added automatically from request for surgery [id number] Bright red rectal bleeding 06/16/201707/17 Overview: Added automatically from request for surgery [id number] History of colonic polyps 06/16/20172016 Overview: Added automatically from request for surgery [id number] Calculus of gallbladder with out cholecystitis without [...] Laboratory test 07/16/2012 11/04/2014 Overview: PSA done [facility] 07/06/2012 - 0.89 Pain in joint, shoulder region 04/06/2012 0 04/12/2016 GERD (gastroesophageal reflux disease) 0 07/17/2017 Diabetes mellitus 06/25/2010 09/04/2012 Headache(784.0) 10/30/2007 01/15/2018 Dysthymic disorder 07/17/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) Other malaise and fatigue 2015 Other specified disease of hair and hair follicl es 11/04/2014 documented as of this encounter (statuses as of 10/13/2022) [facility] of Past illness Narrative* Problem Noted Date Resolved Date Hemorrhoids, internal 06/16/2017 01/15/2018 Overview: Added automatically from request for surgery [id number] Bright red rectal bleeding 06/16/201707/17 Overview: Added automatically from request for surgery [id number] History of colonic polyps 06/16/20172016 Overview: Added automatically from request for surgery [id number] Calculus of gallbladder with out cholecystitis without [...] Laboratory test 07/16/2012 11/04/2014 Overview: PSA done [facility] 07/06/2012 - 0.89 Pain in joint, shoulder region 04/06/2012 0 04/12/2016 GERD (gastroesophageal reflux disease) 0 07/17/2017 Diabetes mellitus 06/25/2010 09/04/2012 Headache(784.0) 10/30/2007 01/15/2018 Dysthymic disorder 07/17/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) Other malaise and fatigue 2015 Other specified disease of hair and hair follicl es 11/04/2014 documented as of this encounter (statuses as of 10/20/2022) [facility] of [facility] illness Narrative* Problem Noted Date Resolved Date Hemorrhoids, internal 06/16/2017 01/15/2018 Overview: Added automatically from request for surgery [id number] Bright red rectal bleeding 06/16/201707/17 Overview: Added automatically from request for surgery [id number] History of colonic polyps 06/16/20172016 Overview: Added automatically from request for surgery [id number] Calculus of gallbladder with out cholecystitis without [...] Laboratory test 07/16/2012 11/04/2014 Overview: PSA done [facility] 07/06/2012 - 0.89 Pain in joint, shoulder region 04/06/2012 0 04/12/2016 GERD (gastroesophageal reflux disease) 0 07/17/2017 Diabetes mellitus 06/25/2010 09/04/2012 Headache(784.0) 10/30/2007 01/15/2018 Dysthymic disorder 07/17/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) Other malaise and fatigue 2015 Other specified disease of hair and hair follicl es 11/04/2014 documented as of this encounter (statuses as of 10/26/2022) [facility] Narrative* Problem Noted Date Resolved Date Hemorrhoids, internal 06/16/2017 01/15/2018 Overview: Added automatically from request for surgery [id number] Bright red rectal bleeding 06/16/201707/17 Overview: Added automatically from request for surgery [id number] History of colonic polyps 06/16/20172016 Overview: Added automatically from request for surgery [id number] Calculus of gallbladder with out cholecystitis without [...] Laboratory test 07/16/2012 11/04/2014 Overview: PSA done [facility] 07/06/2012 - 0.89 Pain in joint, shoulder region 04/06/2012 0 04/12/2016 GERD (gastroesophageal reflux disease) 0 07/17/2017 Diabetes mellitus 06/25/2010 09/04/2012 Headache(784.0) 10/30/2007 01/15/2018 Dysthymic disorder 07/17/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) Other malaise and fatigue 2015 Other specified disease of hair and hair follicl es 11/04/2014 documented as of this encounter (statuses as of 11/09/2022) [facility] illness Narrative* Problem Noted Date Resolved Date Hemorrhoids, internal 06/16/2017 01/15/2018 Overview: Added automatically from request for surgery [id number] Bright red rectal bleeding 06/16/201707/17 Overview: Added automatically from request for surgery [id number] History of colonic polyps 06/16/20172016 Overview: Added automatically from request for surgery [id number] Calculus of gallbladder with out cholecystitis without [...] Laboratory test 07/16/2012 11/04/2014 Overview: PSA done [facility] 07/06/2012 - 0.89 Pain in joint, shoulder region 04/06/2012 0 04/12/2016 GERD (gastroesophageal reflux disease) 0 07/17/2017 Diabetes mellitus 06/25/2010 09/04/2012 Headache(784.0) 10/30/2007 01/15/2018 Dysthymic disorder 07/17/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) Other malaise and fatigue 2015 Other specified disease of hair and hair follicl es 11/04/2014 documented as of this encounter (statuses as of 11/09/2022) [facility] Narrative* Problem Noted Date Resolved Date Hemorrhoids, internal 06/16/2017 01/15/2018 Overview: Added automatically from request for surgery [id number] Bright red rectal bleeding 06/16/201707/17 Overview: Added automatically from request for surgery [id number] History of colonic polyps 06/16/20172016 Overview: Added automatically from request for surgery [id number] Calculus of gallbladder with out cholecystitis without [...] Laboratory test 07/16/2012 11/04/2014 Overview: PSA done [facility] 07/06/2012 - 0.89 Pain in joint, shoulder region 04/06/2012 0 04/12/2016 GERD (gastroesophageal reflux disease) 0 07/17/2017 Diabetes mellitus 06/25/2010 09/04/2012 Headache(784.0) 10/30/2007 01/15/2018 Dysthymic disorder 07/17/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) Other malaise and fatigue 2015 Other specified disease of hair and hair follicl es 11/04/2014 documented as of this encounter (statuses as of 11/18/2022) [facility] Narrative* Problem Noted Date Resolved Date Hemorrhoids, internal 06/16/2017 01/15/2018 Overview: Added automatically from request for surgery [id number] Bright red rectal bleeding 06/16/201707/17 Overview: Added automatically from request for surgery [id number] History of colonic polyps 06/16/20172016 Overview: Added automatically from request for surgery [id number] Calculus of gallbladder with out cholecystitis without [...] Laboratory test 07/16/2012 11/04/2014 Overview: PSA done [facility] 07/06/2012 - 0.89 Pain in joint, shoulder region 04/06/2012 0 04/12/2016 GERD (gastroesophageal reflux disease) 0 07/17/2017 Diabetes mellitus 06/25/2010 09/04/2012 Headache(784.0) 10/30/2007 01/15/2018 Dysthymic disorder 07/17/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) Other malaise and fatigue 2015 Other specified disease of hair and hair follicl es 11/04/2014 documented as of this encounter (statuses as of 11/23/2022) [facility] Narrative* Problem Noted Date Diagnosed Date Resolved Date Hemorrhoids, internal 06/16/2017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: Added automatically from request for surgery [id number] Bright red rectal bleeding 06/16/2017 1 09/17/2016 Overview: Added automatically from request for surgery [id number] History of colonic polyps 06/16/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: Added automatically from request for surgery [id number] Calculus of gallbladder with out cholecystitis without [...] Laboratory test 07/16/2012 11/04/2014 Overview: PSA done [facility] 07/06/2012 - 0.89 Pain in joint, shoulder region 04/06/2012 04/12/2016 GERD (gastroesophageal reflux disease) 06/28/2010 07/17/2017 Diabetes mellitus 06/25/2010 09/04/2012 Headache(784.0) 10/30/2007 01/15/2018 Dysthymic disorder 7 Overview: Depression (non-psychotic) Other malaise and fatigue Other specified disease of h air and hair follicles 11/04/2014 documented as of this encounter (statuses as of 04/19/2023) [facility] Narrative* Problem Noted Date Diagnosed Date Resolved Date Hemorrhoids, internal 06/16/2017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: Added automatically from request for surgery [id number] Bright red rectal bleeding 06/16/2017 1 09/17/2016 Overview: Added automatically from request for surgery [id number] History of colonic polyps 06/16/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: Added automatically from request for surgery [id number] Calculus of gallbladder with out cholecystitis without [...] Laboratory test 07/16/2012 11/04/2014 Overview: PSA done [facility] 07/06/2012 - 0.89 Pain in joint, shoulder region 04/06/2012 04/12/2016 GERD (gastroesophageal reflux disease) 06/28/2010 07/17/2017 Diabetes mellitus 06/25/2010 09/04/2012 Headache(784.0) 10/30/2007 01/15/2018 Dysthymic disorder 7 Overview: Depression (non-psychotic) Other malaise and fatigue Other specified disease of h air and hair follicles 11/04/2014 documented as of this encounter (statuses as of 06/18/2023) [facility] Narrative* Problem Noted Date Diagnosed Date Resolved Date Hemorrhoids, internal 06/16/2017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: Added automatically from request for surgery [id number] Bright red rectal bleeding 06/16/2017 1 09/17/2016 Overview: Added automatically from request for surgery [id number] History of colonic polyps 06/16/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: Added automatically from request for surgery [id number] Calculus of gallbladder with out cholecystitis without [...] Laboratory test 07/16/2012 11/04/2014 Overview: PSA done [facility] 07/06/2012 - 0.89 Pain in joint, shoulder region 04/06/2012 04/12/2016 GERD (gastroesophageal reflux disease) 06/28/2010 07/17/2017 Diabetes mellitus 06/25/2010 09/04/2012 Headache(784.0) 10/30/2007 01/15/2018 Dysthymic disorder 7 Overview: Depression (non-psychotic) Other malaise and fatigue Other specified disease of h air and hair follicles 11/04/2014 documented as of this encounter (statuses as of 09/28/2023) [facility] History of Past illness Narrative* Problem Noted Date Diagnosed Date Resolved Date Hemorrhoids, internal 06/16/2017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: Added automatically from request for surgery [id number] Bright red rectal bleeding 06/16/2017 1 09/17/2016 Overview: Added automatically from request for surgery [id number] History of colonic polyps 06/16/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: Added automatically from request for surgery [id number] Calculus of gallbladder with out cholecystitis without [...] Laboratory test 07/16/2012 11/04/2014 Overview: PSA done [facility] 07/06/2012 - 0.89 Pain in joint, shoulder region 04/06/2012 04/12/2016 GERD (gastroesophageal reflux disease) 06/28/2010 07/17/2017 Diabetes mellitus 06/25/2010 09/04/2012 Headache(784.0) 10/30/2007 01/15/2018 Dysthymic disorder 7 Overview: Depression (non-psychotic) Other malaise and fatigue Other specified disease of h air and hair follicles 11/04/2014 documented as of this encounter (statuses as of 10/12/2023) [facility] Evaluation note* Diagnosis Onset Date Resolution Status Atherosclerotic heart diseas e of [place] coronary artery without angina pectoris chronic Hyperlipemia chronic Nonrheumatic aortic (valve) stenosis with insufficiency chronic H/O coronary artery bypass surgery September 14, 2011 resolved BPH w urinary obs/LUTS acute Difficulty balancing acute Essential (primary) hypertension acute Fibromyalgia acute Fusion of spine, cervical region acute Atherosclerotic heart diseas e of [place] coronary artery without angina pectoris chronic Hyperlipemia chronic Nonrheumatic aortic (valve) stenosis with insufficiency chronic Type 2 diabetes mellitus chr onic H/O coronary artery bypass surgery September 14, 2011 resolved [facility] Work Phone: 1(904) 140-427002-01-2012 Evaluation note* Diagnosis Onset Date Resolution Status Hyperlipemia chronic Nonrheumatic aortic (valve) stenosis with insufficiency chronic H/O coronary artery bypass surgery September 14, 2011 resolved Acute left otitis media acut e Otitis externa acute Cephalgia acute Stiffness of cervical spine acute [facility] Work Phone: Chief complaint+Reason for visit Narrative* Chief Complaint [facility] COVID-19/COUGH OVERDUE 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 Reason for Visit Atherosclerotic hear t disease of [place] coronary artery without angina pectoris Hyperlipemia Nonrheumatic aortic (valve) stenosis with insufficiency H/O coronary artery bypass surgery BPH w urinary obs/LUTS Difficulty balancing Essential (primary) hypertension Fibromyalgia Fusion of spine, cervical region Atherosclerotic heart disease of [place] coronary artery without angina pectoris Hyperlipemia Nonrheumatic aortic (valve) stenosis with insufficiency Type 2 diabetes mellitus H/O coronary artery bypass surgery [facility] Work Phone: Consult note Author Genie Chance [facility] October 26, 2023 3:50pm Note Date/Time October 26, 2023 3:5 1pm Medical Records Department [address] [place] [address] Counseling Note - Pharmacy 10/26/23 1550 MR#: [id number] Acct: [id number] Name: JARET BATES Rep #:[id number] : 1955 68 From: Genie Chance PCP: Dr. Marshall Bear MD Status:ADM IN Location: [place] [address] [place] Med Reconciliation Pharmacy Service has performed discharge [...] Q12H 38 days #76 ea 10/26/23 10/26/23 6500 <Electronically signed by Genie Chance > Date _ Genie Chance Cosigner Signature (if applicable): Date CC: ~ Signed [facility] Work Phone: consult note Author Drea Duarte [facility] December 12, 2023 12:46pm Note Date/Time December 12, 2023 12: 46pm Medical Records Department [address] [place] [address] Counseling Note - Pharmacy 12/12/23 1246 MR#: [id number] Acct: [id number] Name: JARET BATES Rep #:[id number] : 1955 68 From: Drea Duarte PCP: Dr. Marshall Bear MD Status:ADM IN Location: [place] [address] [place] Med Reconciliation Pharmacy Service has performed discharge [...] Signature (if applicable): Date CC: ~ Signed [facility] Work Phone: Discharge summary Author Ochoa Figueroa [facility] December 12, 2023 12:14pm Note Date/Time December 12, 2023 11: 58am [facility] Medical Records Department [address] [place] [id number] Instructions for Home/Discharge Instructions 12/12/23 1157 MR#: [id number] Acct: [id number] Name: JARET BATES Rep #:[id number] : 1955 68 From: Ochoa Mcfarlane PCP: [...] is on oxycodone. Both medications are available [id number] Discharge Orders/Prescriptions Prescriptions: New metformin 500 mg [...] cbc, ESR, and vanc trough; fax to [phone]. Routine picc care per protocol. metformin 500 [...] MD; Dr. Tarik Wilkinson MD ~ Signed [facility] Work Phone: Discharge summary Author Ochoa Figueroa [facility] December 12, 2023 12:19pm Note Date/Time December 12, 2023 12: 18pm [facility] Medical Records Department [facility] [place] [address] Discharge Summary 12/12/23 1214 MR#: [id number] Acct: [id number] Name: JARET BATES Rep #:[id number] : 1955 68 From: Ochoa Mcfarlane PCP: Dr. Marshall Bear MD Status:ADM IN Location: [id number] Providers Date of Admission: 12/10/23 Date of [...] Patient is a 68-year-old male who presented [facility] ED on 12/10/2023 with recurrent low back pain. 1. Recurrent low back pain, recent history of L4-5 laminectomy complicated by discitis/osteomyelitis, debility ? Admit under inpatient status to [facility]. MRI lumbar spine with and without IVcontrast [...] 18:39 EDT Reading Location ID and State: [address] [place] [address] , Service support , D/C Instructions Discharge [...] is on oxycodone. Both medications are available [id number] Discharge Orders/Prescriptions Prescriptions: New metformin 500 mg [...] cbc, ESR, and vanc trough; fax to [phone]. Routine picc care per protocol. metformin 500 [...] Self Care Charges/Coding Visit Charges Inpatient E&M: 49958 Disch Hosp >30min 12/12/23 1219 <Electronically signed by Ochoa Figueroa MD> Cosigner Signature (if applicable): CC: Dr. Marshall Bear MD; Dr. Ochoa Figueroa MD~ Signed [facility] Work Phone: Evaluation note* Diagnosis Onset Date Resolution Status Mechanical pain of right knee acute Right knee DJD acute Tear of medial meniscus of right knee acute [facility] Work Phone: Evaluation note* Diagnosis Onset Date Resolution Status Mechanical pain of right knee acute Right knee DJD acute Tear of medial meniscus of right knee acute Orthopedic aftercare acute Orthopedic aftercare acute COVID-19 acute COVID-19 acute [facility] Work Phone: Evaluation note* Diagnosis Onset Date [...] with insufficiency chronic Type 2 diabetes mellitus [facility] onic H/O coronary artery bypass surgery September 14, 2011 resolved [facility] Work Phone: Evaluation note* Diagnosis Onset Date Resolution Status Orthopedic aftercare acute Orthopedic aftercare acute COVID-19 acute COVID-19 acute Orthopedic aftercare acute Right knee pain noneactive BPH w urinary obs/LUTS acute Fatigue acute Hyperlipemia chronic Nonrheumatic aortic (valve) stenosis with insufficiency chronic Type 2 diabetes mellitus [facility] on H/O coronary artery bypass surgery September 14, 2011 resolved [facility] Work Phone: Evaluation note* Diagnosis Encounter for screening for malignant neoplasm of colon- Primary Special screening for malignant neoplasms, colon Personal history of colonic polyps [facility] Diagnosis Onset Date Resolution Status 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 Sinusitis noneactive Acute upper abdominal pain a cute Essential (primary) hypertension acute Atherosclerotic heart diseas e of [place] coronary artery without angina pectoris chronic Hyperlipemia chronic Type 2 diabetes mellitus [facility] Work Phone: Evaluation note* Diagnosis History of colonic polyps- Primary Personal history of colonic polyps Epigastric pain Abdominal pain, epigastric [facility] Diagnosis Diverticulosis- Primary Diverticulosis of colon (without mention of hemorrhage) History of colonic polyps Personal history of colonic polyps Gastritis and duodenitis Unspecified gastritis and gastroduodenitis without mention of hemorrhage [facility]* Diagnosis Calculus of gallbladder without cholecystitis without obstruction- Primary Calculus of gallbladder without mention of cholecystitis or obstruction RUQ pain Abdominal pain, right upper quadrant [facility]* Diagnosis Pre-operative examination- Primary Preoperative examination, unspecified Other hyperlipidemia Coronary artery disease involving [place] coronary artery of [place] heart without angina 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 [facility] Diagnosis Onset Date Resolution Status Right knee DJD acute Sinusitis noneactive Acute upper abdominal pain a cute Essential (primary) hypertension acute Atherosclerotic heart diseas e of [place] coronary artery without angina pectoris chronic Hyperlipemia chronic Type 2 diabetes mellitus chr onic Acute upper abdominal pain a cute Essential (primary) hypertension acute Otitis externa acute Hyperlipemia chronic Type 2 diabetes mellitus chr onic Bilateral primary osteoarthritis of knee acute [facility] Work Phone: Evaluation note* Diagnosis Calculus of gallbladder with chronic cholecystitis without obstruction- Primary Calculus of gallbladder with other cholecystitis, without mention of obstruction Back spasm Other symptoms referable to back [facility] Diagnosis Onset Date Resolution Status Cephalgia acute Stiffness of cervical spine acute Neck pain acute Neck pain acute Tension headache acute [facility] Work Phone: Evaluation note* Diagnosis Onset Date Resolution Status Cephalgia acute Stiffness of cervical spine acute Neck pain acute Neck pain acute Tension headache acute Acute lumbar radiculopathy a cute Bilateral primary osteoarthritis of knee acute [facility] Work Phone: Evaluation note* Diagnosis Onset Date Resolution Status Cephalgia acute Stiffness of cervical spine acute Neck pain acute Neck pain acute Tension headache acute Bilateral primary osteoarthritis of knee acute Urinary frequency acute [facility] Work Phone: Evaluation note* Diagnosis Gastroesophageal reflux disease with esophagitis, unspecified whether hemorrhage- Primary Constipation, unspecified constipation type History of colonic polyps Personal history of colonic polyps Epigastric pain Abdominal pain, epigastric [facility] Diagnosis Onset Date Resolution Status Neck pain acute Neck pain acute Tension headache acute Bilateral primary osteoarthritis of knee acute Urinary frequency acute Herniated nucleus pulposus, L4-5 left acute Herniated nucleus pulposus, L4-5 left acute Herniated nucleus pulposus, L4-5 left acute High cholesterol acute Status post discectomy for herniated nucleus pulposus acute [facility] Work Phone: Evaluation note* Diagnosis Onset Date Resolution Status Neck pain acute Tension headache acute Bilateral primary osteoarthritis of knee acute Urinary frequency acute Herniated nucleus pulposus, L4-5 left resolved Herniated nucleus pulposus, L4-5 left resolved High cholesterol acute Herniated nucleus pulposus, L4-5 left resolved Status post discectomy for herniated nucleus pulposus resolved S/P laminectomy acute S/P laminectomy acute [facility] Work Phone: Evaluation note* Diagnosis Epigastric pain- Primary Abdominal pain, epigastric [facility]* Diagnosis Gastroesophageal reflux disease with esophagitis and hemorrhage- Primary Epigastric pain Abdominal pain, epigastric documented [facility]* Diagnosis Onset Date Resolution Status Herniated nucleus pulposus, L4-5 left resolved Status post discectomy for herniated nucleus pulposus resolved Sinus infection resolved Abdominal pain resolved Bilirubinuria resolved Contact with or exposure to other viral diseases resolved Abdominal pain resolved Bilirubinuria resolved Discitis of lumbar region ac [place] Altered mental status resolv ed Expressive aphasia resolved [facility] Work Phone: Evaluation note* Diagnosis Onset Date [...] Bilirubinuria resolved Discitis of lumbar region ac [place] Altered mental status resolv ed Expressive aphasia resolved 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 acute Discitis of lumbar region ac [place] Lumbosacral radiculopathy at L5 acute [facility] Work Phone: Evaluation note* Diagnosis Onset Date Resolution Status Essential (primary) hypertension acute Hyperlipemia acute Type 2 diabetes mellitus acu te Sinus infection resolved Lumbosacral radiculopathy at L5 acute Lumbosacral radiculopathy at L5 acute Abdominal pain resolved Bilirubinuria resolved Contact with or exposure to other viral diseases resolved Abdominal pain resolved Bilirubinuria resolved Discitis of lumbar region ac [place] Altered mental status resolv ed Expressive aphasia resolved 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 Bear in 1 week. Keep appointment for EGD on 10/11/2023. You may have loose stool for the next 24 hours after the oral contrast for your CAT scan. Follow bland diet until feeling better. Reglan every 8 hours for nausea.[facility] Work Phone: Reason for referral (narrative)* Outpatient Procedure (Routine) - Pending Review Specialty Diagnoses / Procedures Referred By Jeffrey jacob Referred To Contact [facility] Diagnoses Epigastric pain Procedures EGD DIAGNOSTIC ESOPHAGOGASTRODUODENOSC OPY TRANSORAL DIAGNOSTIC Jose Juan Pena MD [address] [place] [address] [facility] [address] [place] [address] Referral ID Status Reason Start Date Expiration Date Visits Requested Visits Authorized [id number] Pending Review Auto-Generat ed Referral 09/16/2022 09/16/2023 1 1 * Outpatient Procedure (Routine) - Authorized Specialty Diagnoses / Procedures Referred By Jeffrey jacob Referred To Contact [facility] Diagnoses History of colonic polyps Procedures COLONOSCOPY SCREENING COLONOSCOPY FLX DX W/COLLJ SPEC WHEN PFPEYMAND Edilia Hunter PA-C [address] [address] [place] [address] Referral ID Status Reason Start Date Expiration Date Visits Requested Visits Authorized [id number] Authorized Auto-Generat ed Referral 08/09/2023 1 1 [facility] for referral (narrative)* Outpatient Procedure (Routine) - Closed Specialty Diagnoses / Procedures Referred By Jeffrey jacob Referred To Contact [facility] Diagnoses Epigastric pain Procedures EGD DIAGNOSTIC ESOPHAGOGASTRODUODENOSC OPY TRANSORAL DIAGNOSTIC Jose Juan Pena MD [address] [place] [address] [address] Referral ID Status Reason Start Date Expiration Date V isits Requested Visits Authorized [id number] Closed Auto-Generate d Referral 09/16/2022 09/16/2023 1 1 * Outpatient Procedure (Routine) - Closed Specialty Diagnoses / Procedures Referred By Jeffrey jacob Referred To Contact [facility] Diagnoses History of colonic polyps Procedures COLONOSCOPY SCREENING COLONOSCOPY FLX DX W/COLLJ SPEC WHEN Edilia Gonzalez PA-C [address] [address] [address] Referral ID Status Reason Start Date Expiration Date V isits Requested Visits Authorized [id number] Closed Auto-Generate d Referral 08/09/2022 08/09/2023 1 1 [facility] for referral (narrative)* Outpatient Procedure (Routine) - Authorized Specialty Diagnoses / Procedures Referred By Jeffrey jacob Referred To Contact [facility] Diagnoses Epigastric pain Procedures EGD DIAGNOSTIC ESOPHAGOGASTRODUODENOS COPY TRANSORAL DIAGNOSTIC Jose Juan Pena MD [address] [address] Referral ID Status Reason Start Date Expiration Date Visits Requested Visits Authorized [id number] Authorized Auto-Generat ed Referral 09/28/2023 09/28/2024 1 1 [facility] for referral (narrative)* Outpatient Procedure (Routine) - Closed Specialty Diagnoses / Procedures Referred By Jeffrey jacob Referred To Contact [facility] Diagnoses Epigastric pain Procedures EGD DIAGNOSTIC ESOPHAGOGASTRODUODENOS COPY TRANSORAL DIAGNOSTIC Jose Juan Pena MD [address] [address] [place] [address] [place] [address] Referral ID Status Reason Start Date Expiration Date V isits Requested Visits Authorized [id number] Closed Auto-Generate d Referral 09/28/2023 09/28/2024 1 1 [facility] for referral (narrative)No reason for referral information [facility] Work Phone: Reason for visit Narrative* Outpatient Procedure (Routine) - Closed Specialty Diagnoses / Procedures Referred By Jeffrey jacob Referred To Contact [facility] Diagnoses Epigastric pain Procedures EGD DIAGNOSTIC ESOPHAGOGASTRODUODENOSC OPY TRANSORAL DIAGNOSTIC Jose Juan Pena MD [address] [place] [address] [facility] [place] [address] Referral ID Status Reason Start Date Expiration Date V isits Requested Visits Authorized [id number] Closed Auto-Generate d Referral 09/16/2022 09/16/2023 1 1 [facility] Outpatient Procedure (Routine) - Closed Specialty Diagnoses / Procedures Referred By Jeffrey jacob Referred To Contact [facility] Diagnoses Epigastric pain Procedures EGD DIAGNOSTIC ESOPHAGOGASTRODUODENOS COPY TRANSORAL DIAGNOSTIC Jose Juan Pena MD [address] [address] [facility] [address] [place] [address] Referral ID Status Reason Start Date Expiration Date V isits Requested Visits Authorized [id number] Closed Auto-Generate d Referral 09/28/2023 09/28/2024 1 1 [facility] Summary Purpose Family History No Family [...] Will No September 03 1:42pm Power of Precision Assembler No September 03, 2020 1:42pm Advance Directive Response Recorded Date/ Time Advance Directives No April 3:20pm Living Will No February 23, 2022 9:29am Power of Precision Assembler No February 23 9:29am Advance Directive Response Recorded Date/ Time Advance Directives No April 2:20pm Living Will No February 23, 2022 8:29am Power of Precision Assembler No February 23 8:29am Advance Directive Response Recorded Date/ Time Advance Directives No September 09, 2022 8:50am Living Will No September 12 10:45am Power of Precision Assembler No September 12, 2022 10:45am Advance Directive Response Recorded Date/ Time Advance Directives No September 09, 2022 9:50am Living Will No November 14, 2022 11:23am Power of Precision Assembler No November 14 11:23am Advance Directive Response Recorded Date/ Time Name of Medical Power of Precision Assembler May 10, 2023 3:59pm Name of Medical Power of Precision Assembler May 11, 2023 6:00pm Advance Directives No September 09, 2022 9:50am Living Will Yes May 11, 2023 6:00pm Power of Precision Assembler Yes April 6:00pm Advance Directive Response Recorded Date/ Time Name of Medical Power of Precision Assembler May 10, 2023 2:59pm Name of Medical Power of Precision Assembler May 11, 2023 5:00pm Name of Medical Power of Precision Assembler Alethea - July 18, 2023 12:22pm Advance Directives No September 09, 2022 8:50am Living Will Yes July 18 12:22pm Power of Precision Assembler Yes July 18, 2023 12:22pm Advance Directive Response Recorded Date/ Time Name of Medical Power of Precision Assembler May 10, 2023 2:59pm Name of Medical Power of Precision Assembler May 11, 2023 5:00pm Name of Medical Power of Precision Assembler Alethea - July 18, 2023 12:22pm Advance Directives No September 09, 2022 8:50am Living Will No August 04 023 6:01pm Power of Precision Assembler No August 04, 2023 6:01pm Advance Directive Response Recorded Date/ Time Name of Medical Power of Precision Assembler May 10, 2023 2:59pm Name of Medical Power of Precision Assembler May 11, 2023 5:00pm Name of Medical Power of Precision Assembler Alethea - July 18, 2023 12:22pm Advance Directives No September 09, 2022 8:50am Living Will No August 14 3:35pm Power of Precision Assembler No August 14 024 3:35pm Advance Directive Response Recorded Date/ Time Name of Medical Power of Precision Assembler Alethea - July 18, 2023 12:22pm Name of Medical Power of Precision Assembler Alethea bates October 01, 2023 3:43pm Advance Directives No September 3:26pm Living Will Yes October 01, 2 024 3:43pm Power of Precision Assembler Yes October 01, 2023 3:43pm Advance Directive Response Recorded Date/ Time Name of Medical Power of Precision Assembler Alethea - July 18, 2023 12:22pm Name of Medical Power of Precision Assembler Alethea bates October 01, 2023 3:43pm Name of Medical Power of Precision Assembler alethea bates October 21, 2023 5:41pm Advance Directives No September 3:26pm Living Will Yes October 21, 2023 5:41pm Power of Precision Assembler Yes October 20 5:41pm Advance Directive Response Recorded Date/ Time Name of Medical Power of Precision Assembler Alethea - July 18, 2023 1:22pm Name of Medical Power of Precision Assembler Alethea bates October 01, 2023 4:43pm Name of Medical Power of Precision Assembler alethea bates October 21, 2023 9:44pm Advance Directives No September 4:26pm Living Will Yes October 21, 2023 9:44pm Power of Precision Assembler Yes October 20 9:44pm Advance Directive Response Recorded Date/ Time Name of Medical Power of Precision Assembler Alethea - July 18, 2023 1:22pm Name of Medical Power of Precision Assembler Alethea Bates November 01, 2023 11:18am Advance Directives No September 4:26pm Living Will Yes November 01, 2023 11:18am Power of Precision Assembler Yes October 31 11:18am Name of Medical Power of Precision Assembler Alethea bates October 01, 2023 4:43pm Name of Medical Power of Precision Assembler alethea bates October 21, 2023 9:44pm Advance Directive Response Recorded Date/ Time Name of Medical Power of Precision Assembler Alethea Bates November 01, 2023 11:18am Name of Medical Power of Precision Assembler alethea bates December 10, 2023 1:02am Advance Directives No September 4:26pm Living Will Yes December 10, 2023 1:02am Power of Precision Assembler Yes December 09 1:02am Name of Medical Power of Precision Assembler Alethea bates October 01, 2023 4:43pm Name of Medical Power of Precision Assembler alethea bates October 21, 2023 9:44pm Advance Directive Response Recorded Date/ Time Advance Directives No July 17, 2024 9:59am Advance Directive Response Recorded Date/ Time Living Will Yes April 18 9:11am Do you have a Healthcare Power of Precision Assembler? Yes April 18, 2024 9:11am Advance Directives No July 17, 2024 9:59am Advance Directive Response Recorded Date/ Time Living Will Yes February 13, 2024 1 :42am Do you have a Healthcare Power of Precision Assembler? Yes February 13, 2024 1:42am Living Will Yes April 18 9:11am Do you have a Healthcare Power of Precision Assembler? Yes April 18, 2024 9:11am Advance Directives [...] Essential (primary) hypertension Atherosclerotic heart disease of [place] coronary artery without angina pectoris Hyperlipemia Type 2 diabetes mellitus Chief Complaint RIGHT KNEE COLD SYMPTOMS Stomach Issues ABD PAIN 6 M FU RIGHT KNEE BACK PAIN Reason for Visit Right knee DJD Sinusitis Acute upper abdominal pain Essential (primary) hypertension Atherosclerotic heart disease of [place] coronary artery without angina pectoris Hyperlipemia Type [...] at L5 Chief Complaint SOB LUMBAR SPINE [facility] ER FU LUMBAR SPINE room 2 LUMBAR [...] pain Renal insufficiency Chief Complaint LUMBAR SPINE [facility] ER FU LUMBAR SPINE room 2 LUMBAR [...] OSTEOMYLITIS L-S PINE March 05, 2025 9: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 SYNCOPE March 05, 2025 1:03 [...] Date Dose Rate Site benzocaine 20% 1 [place] (TOPEX) 1 [place], TOPICAL, DIRECTED, Starting on Mon09/27/22 at 1000, [...] FOR PROCEDURAL SEDATION ONLY, Intraprocedure Given by [facility] 09/27/2022 9:46 AM EST 50 mcg Given by [facility] 09/27/2022 9:44 AM EST 50 mcg lactated [...] 10:13 AM EST 2 mg Given by [facility] 09/27/2022 9:46 AM EST 2 mg Given by [facility] 09/27/2022 9:44 AM EST 3 mg ondansetron [...] section and content) DATE CREATED AUTHOR 02/05/2018 [facility] DATE CREATED AUTHOR AUTHOR'S ORGANIZ ATION 02/05/2018 [facility] DATE CREATED AUTHOR AUTHOR'S ORGANIZ ATION 11/16/2022 [facility] DATE CREATED AUTHOR AUTHOR'S ORGANIZ ATION 09/29/2023 [facility] DATE CREATED AUTHOR AUTHOR'S ORGANIZ ATION 03/13/2025 [facility] Goals (unrecognized section and content) Goals [...] or prosecute any alcohol or drug abuse patient.[facility] the event this information is protected by the Federal Confidentiality of Alcohol and Drug Abuse Patient Records regulations: The Federal rules restrict any use of the information to criminally investigate or prosecute any alcohol or drug abuse patient.[facility] the event this information is protected by the Federal Confidentiality of Alcohol and Drug Abuse Patient Records regulations: The Federal rules restrict any use of the information to criminally investigate or prosecute any alcohol or drug abuse patient.[facility] the event this information is protected by the Federal Confidentiality of Alcohol and Drug Abuse Patient Records regulations: The Federal rules restrict any use of the information to criminally investigate or prosecute any alcohol or drug abuse patient.[facility] the event this information is protected by the Federal Confidentiality of Alcohol and Drug Abuse Patient Records regulations: The Federal rules restrict any use of the information to criminally investigate or prosecute any alcohol or drug abuse patient.[facility] the event this information is protected by the Federal Confidentiality of Alcohol and Drug Abuse Patient Records regulations: The Federal rules restrict any use of the information to criminally investigate or prosecute any alcohol or drug abuse patient.[facility] the event this information is protected by the Federal Confidentiality of Alcohol and Drug Abuse Patient Records regulations: The Federal rules restrict any use of the information to criminally investigate or prosecute any alcohol or drug abuse patient.[facility] the event this information is protected by the Federal Confidentiality of Alcohol and Drug Abuse Patient Records regulations: The Federal rules restrict any use of the information to criminally investigate or prosecute any alcohol or drug abuse patient.[facility] the event this information is protected by the Federal Confidentiality of Alcohol and Drug Abuse Patient Records regulations: The Federal rules restrict any use of the information to criminally investigate or prosecute any alcohol or drug abuse patient.[facility] the event this information is protected by the Federal Confidentiality of Alcohol and Drug Abuse Patient Records regulations: The Federal rules restrict any use of the information to criminally investigate or prosecute any alcohol or drug abuse patient.[facility] the event this information is protected by the Federal Confidentiality of Alcohol and Drug Abuse Patient Records regulations: The Federal rules restrict any use of the information to criminally investigate or prosecute any alcohol or drug abuse patient.[facility] the event this information is protected by the Federal Confidentiality of Alcohol and Drug Abuse Patient Records regulations: The Federal rules restrict any use of the information to criminally investigate or prosecute any alcohol or drug abuse patient.[facility] the event this information is protected by the Federal Confidentiality of Alcohol and Drug Abuse Patient Records regulations: The Federal rules restrict any use of the information to criminally investigate or prosecute any alcohol or drug abuse patient.[facility] the event this information is protected by the Federal Confidentiality of Alcohol and Drug Abuse Patient Records regulations: The Federal rules restrict any use of the information to criminally investigate or prosecute any alcohol or drug abuse patient.[facility] Reason for Visit (unrecogniz ed section and content) Reason Comments Consult Colonoscopy Reason Comments 09/27/2022 colon asc Patient Update Reason Comments Add EGD Reason Comments Follow Up colonoscopy Reason Comments Results CT scan from [facility] Reason Comments Abdominal Pain Reason [...] Dr. Scotty Warner DO Emergency Provider Active Timber Treating Tank Operator Relationship Specialty Start Date End Date Marshall Bear MD [address] [facility] [address] PCP - General Internal Medicine 10/31/22 Timber Treating Tank Operator Relationship Specialty Start Date End Date Marshall Bear MD [address] [place] [address] PCP - General Internal Medicine 10/31/22 Team [...] Marshall Bear MD Primary Care Provider Active Timber Treating Tank Operator Relationship Specialty Start Date End Date Marshall Bear MD [address] [place] [address] PCP - General Internal Medicine 10/31/22 Timber Treating Tank Operator Relationship Specialty Start Date End Date Marshall Bear MD [address] [place], [place] [id number] PCP - General Internal Medicine 10/31/22 Team [...] PA Attending Provider, Referring Provi wilmar Active Timber Treating Tank Operator Relationship Specialty Start Date End Date Marshall Bear MD [address] [place] [address] PCP - General Internal Medicine 10/31/22 Team [...] Pro vider, Attending Provider, Referring Provider Active Timber Treating Tank Operator Relationship Specialty Start Date End Date Marshall Bear MD [address] [place] [address] PCP - General Internal Medicine 10/31/22 Team [...] Dr. Vin Neff MD Attending Provider Active Timber Treating Tank Operator Relationship Specialty Start Date End Date Marshall Bear MD [address] [place] [address] PCP - General Internal Medicine 10/31/22 Team [...] MD Primary Care Provider Active Dr. Prince Balatzar DO Emergency Provider Active Dr. Giuliano Pacheco [...] 28, 2025 End: January 28, 2025 Dr. Marhsall Bear MD Attending Provider Active Start: January [...] Date Dose Rate Site benzocaine 20% 1 [place] (TOPEX) 1 [place], TOPICAL, DIRECTED, Starting on Mon10/11/23 at 0900, [...] BE BASED ON THE PRIMARY CLINICAL RECORDS. [employer] [facility]. provides no warranty or guarantee of the accuracy or completeness of information in this document.
--- NOTE | 2025-03-24 18:59 | STRESSREP ---
Stress Test Report Pharmacologic myocardial perfusion stress test. 69-year-old man with a history of chest pain and syncope Resting EKG demonstrates sinus bradycardia with a rate of 49 bpm. Resting blood pressure is 142/80 mmHg. 0.4 mg of regadenoson was infused per usual protocol followed by rapid intravenous saline flush injection. Continuous EKG monitoring was performed. The maximum heart rate was 65 bpm which was 43% of max impacted heart rate the maximum workload was 1 metabolic equivalent. At rest there were no ST or T wave changes noted to suggest ischemia and at peak infusion nonspecific ST changes were noted which did not meet the criteria for ischemia. No clinical angina is noted. The final blood pressure was 126/72 mmHg. Myocardial perfusion protocol. 12.0 mCi of technetium 99m sestamibi was injected at rest. 0.4 mg of regadenoson was infused per usual protocol. At peak infusion 35.6 mCi of technetium 99m sestamibi was injected stress images were obtained stress and rest images were reconstructed and compared in the short axis vertical long and horizontal long axis. Gated images were also obtained. Perfusion SPECT analysis: Review of the stress images demonstrate normal uptake of tracer noted in all areas of the myocardium. The resting images similar demonstrated normal uptake of tracer noted in all areas of the myocardium. No areas of reversibility are noted to suggest ischemia and no previous infarct is noted. Gated SPECT analysis: The gated ejection fraction is 56%. Conclusion: Normal pharmacologic myocardial perfusion stress test. Preserved ejection fraction.
== END | disposition home or self-care (01) ==
PROVIDERS: PCP Internal Medicine; Referring Provider Physician Assistant Medical; Visit Provider Physician Assistant Medical
DX: R55 Syncope and collapse (principal); I10 Essential (primary) hypertension; E78.5 Hyperlipidemia, unspecified; R07.9 Chest pain, unspecified; I35.0 Nonrheumatic aortic (valve) stenosis
CPT/HCPCS: 78452; 93017; 93306; A9500; A4216; J2785

== ENCOUNTER → 2025-05-22 | Outpatient (CLI) | payer MEDICARE, SELFPAY ==
[2025-05-22 08:53] LABS: Hematocrit 39.2 % (40-54); Hemoglobin 12.6 g/dL (13.0-16.5); Immature Granulocytes Count 0.030 X10^3/uL (0.0-0.0); Mean Corp Hgb Conc 32.1 g/dL (32-36); Mean Corpuscular Volume 90.7 fL (80-94); Mean Platelet Vol. 8.5 fl (6.2-12.0); NRBC Flagged by Analyzer 0 % (0-5); Platelet Count 261 K/mm3 (150-450); RBC Distribution Width CV 13.0 % (11.6-14.6); RBC Distribution Width SD 42.6 fl (35.1-43.9); Red Blood Count 4.32 M/mm3 (4.6-6.2); White Blood Count 7.5 K/mm3 (4.4-11.0)
[2025-05-22 09:52] LABS: AST(SGOT) 23 U/L (<=37); Alanine Aminotransfer ALT/SGPT 17 U/L (<=46); Albumin, Serum 4.2 g/dL (3.4-4.8); Alkaline Phosphatase 93 U/L (40-129); Anion Gap 9 (5-15); BUN 24 mg/dL (4-19); BUN/Creat Ratio 18.7 RATIO (10-20); Calcium,Total 9.3 mg/dL (7.6-11.0); Carbon Dioxide 27.3 mmol/L (21.0-32.0); Chloride 106 mmol/L (98-108); Globulin 2.8 g/dL (2.2-4.2); Glucose 99 mg/dL (70-99); Potassium 4.4 mmol/L (3.3-5.1); Vitamin B12 529 pg/mL (180-914); Vitamin D,25 Hydroxy 43.4 ng/mL (30-100)
[2025-05-22 11:55] LABS: Cholesterol 264 mg/dL (<=200); Low Density Lipoprotein Calc. 192 mg/dL; Triglycerides 117 mg/dL; Very Low Density Lipoprotein 23 mg/dL (5-40); cholesterol:hdl ratio screen 5.44
== END | disposition home or self-care (01) ==
PROVIDERS: PCP Internal Medicine; Referring Provider Internal Medicine; Visit Provider Internal Medicine
DX: J06.9 Acute upper respiratory infection, unspecified (principal); E11.9 Type 2 diabetes mellitus without complications; I10 Essential (primary) hypertension; M19.90 Unspecified osteoarthritis, unspecified site; M48.062 Spinal stenosis, lumbar region with neurogenic claudication; E55.9 Vitamin D deficiency, unspecified; Z13.220 Encounter for screening for lipoid disorders; E53.8 Deficiency of other specified B group vitamins
CPT/HCPCS: 36415; 80053; 80061; 82306; 82607; 83036; 84443; 85025

== ENCOUNTER → 2025-07-09 | Outpatient (CLI) | payer MEDICARE, SELFPAY ==
[2025-07-09 09:33] LABS: Hematocrit 42.3 % (40-54); Hemoglobin 14.2 g/dL (13.0-16.5); Immature Granulocytes Count 0.010 X10^3/uL (0.0-0.0); Mean Corp Hgb Conc 33.6 g/dL (32-36); Mean Corpuscular Volume 88.9 fL (80-94); Mean Platelet Vol. 8.7 fl (6.2-12.0); NRBC Flagged by Analyzer 0 % (0-5); Platelet Count 173 K/mm3 (150-450); RBC Distribution Width CV 13.1 % (11.6-14.6); RBC Distribution Width SD 42.6 fl (35.1-43.9); Red Blood Count 4.76 M/mm3 (4.6-6.2); White Blood Count 4.6 K/mm3 (4.4-11.0)
[2025-07-09 10:47] LABS: AST(SGOT) 35 U/L (<=37); Alanine Aminotransfer ALT/SGPT 31 U/L (<=46); Albumin, Serum 4.5 g/dL (3.4-4.8); Alkaline Phosphatase 95 U/L (40-129); Anion Gap 11 (5-15); BUN 22 mg/dL (4-19); BUN/Creat Ratio 14.1 RATIO (10-20); Calcium,Total 9.4 mg/dL (7.6-11.0); Carbon Dioxide 25.3 mmol/L (21.0-32.0); Chloride 105 mmol/L (98-108); Globulin 3.1 g/dL (2.2-4.2); Glucose 94 mg/dL (70-99); Potassium 4.2 mmol/L (3.3-5.1)
== END | disposition home or self-care (01) ==
LOC: LAB 09:01
PROVIDERS: PCP Internal Medicine; Referring Provider Student in an Organized Health Care Education/Training Program; Visit Provider Student in an Organized Health Care Education/Training Program
DX: D64.9 Anemia, unspecified (principal)
CPT/HCPCS: 36415; 80053; 85025

== ENCOUNTER → 2025-07-28 | Outpatient (CLI) | payer MEDICARE, SELFPAY ==
[2025-07-30 10:08] LABS: Calprotectin, Stool 52 ug/g (0-120)
== END | disposition home or self-care (01) ==
PROVIDERS: PCP Internal Medicine; Referring Provider Student in an Organized Health Care Education/Training Program; Visit Provider Student in an Organized Health Care Education/Training Program
DX: D64.9 Anemia, unspecified (principal); R19.5 Other fecal abnormalities; K58.9 Irritable bowel syndrome, unspecified
CPT/HCPCS: 83993; 87177; 87209; 87329; 87493

== ENCOUNTER 2025-08-01 05:27 | Day surgery (SDC) | payer MEDICARE, SELFPAY ==
--- NOTE | 2025-07-31 17:16 | PAT.ANESEVAL ---
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 When Was Last Pacemaker Check QUESTION #4 FULL TEXT: You/Your Family Experience fever (hyperthermia) with Anesthesia Last Oral Intake Last Oral intake: Last Oral Intake NPO since Meds taken in AM with sips of water? Meds patient instructed to take am of surgery PONV PONV - bookkeeper receptionist: PONV - bookkeeper receptionist Female No 07/31/25 09:22 HX of Motion Sickness No 07/31/25 09:22 HX of N/V After Surgery No 07/31/25 09:22 Non-Smoker Yes 07/31/25 09:22 Duration of Surgery greater No 07/31/25 09:22 than 60 minutes Number of Risk Factors 1 07/31/25 09:22 PONV Score Low Risk 07/31/25 09:22 Height & Weight Height & Weight: Anesthesia: Height & Weight Height 5 ft 10 in 05/22/25 07:54 Respiratory Assessment Respiratory Assessment - bookkeeper receptionist: Respiratory Tract Infection Hx - bookkeeper receptionist Hx Respiratory Tract Infection No 07/31/25 09:22 STOP Sleep Apnea STOP Sleep Apnea - bookkeeper receptionist: STOP Sleep Apnea - bookkeeper receptionist Hx Hypertension Yes 07/31/25 09:22 Hx Sleep Apnea No 07/31/25 09:22 CPAP No 07/17/24 08:59 BIPAP No 07/17/24 08:59 Do you snore loudly (louder No 07/31/25 09:22 than talking or can be heard Do you often feel tired/ No 07/31/25 09:22 fatigued/ sleepy during daytime? Has anyone observed you stop No 07/31/25 09:22 breathing during sleep? STOP Results Negative 07/31/25 09:22 QUESTION #5 FULL TEXT : Do you snore loudly (louder than talking or can be heard through closed doors)? 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 Specify any problems Hx of Preganancy in last 3 N/A 07/31/25 09:22 Months Nurse Filling Out Transfusion JZOLLINGE 07/31/25 09:22 & Questions: Date: 07/31/25 07/31/25 09:22 Time: 07/31/25 09:22 Patient unable to answer at this time (ie. confused, unrespo /Reproduction History /Reproductive History - bookkeeper receptionist: /Reproductive Hx- bookkeeper receptionist Hx Now No 07/31/25 09:22 Gestational Age (in weeks): EDC: Hx Hx Para Hx Section SAB No 07/31/25 09:22 Does the father of the baby or his family experience fever w Father of the baby Malignant Hypertension history comment [facility] Medical History (Updated 07/31/25 @ 09:33 by Funmi Moura) Abnormal leg movement Dizziness Balance problem Myalgia Acute upper respiratory infection Scoliosis Thoracic spine pain Chills Right upper quadrant pain Left ankle pain Osteomyelitis Pain of left calf Foot pain Hyponatremia Vasovagal episode Pulse irregularity Bilirubinuria Contact with or exposure to other viral diseases Lumbosacral radiculopathy at L5 History of steroid therapy Smokeless tobacco use Tension headache Agent orange exposure Bilateral primary osteoarthritis of knee Wears hearing aid Cancer Alcohol use Diabetes Ambulates with cane Arthritis Prostate disease High cholesterol (~08/21/23) Restless legs Back pain Injury of head and neck Syncope History of IBS Shortness of breath on exertion History of pain when walking History of echocardiogram History of stress test Cardiology follow-up encounter Tear of medial meniscus of right knee Fibromyalgia BPH w urinary obs/LUTS Left knee DJD Right knee DJD Fusion of spine, cervical region Chondromalacia, right knee Chondromalacia, left knee Chondromalacia of both patellae COVID-19 virus detected (11/19/20) Nonrheumatic aortic (valve) stenosis with insufficiency Opioid dependence Obesity Asthma Hyperlipemia Essential (primary) hypertension Atherosclerotic heart disease of [place] coronary artery without angina pectoris Type 2 diabetes mellitus Spondylosis of lumbosacral region without myelopathy or radiculopathy Spinal stenosis of lumbosacral region Radiculopathy of lumbosacral region Degeneration of intervertebral disc of lumbosacral region Arthropathy of cervical facet joint Degeneration of cervical disc without myelopathy Cervical spondylosis Home Medications ?Medication ?Instructions ?Recorded ?Last Taken ?Type multivitamin 1 tab PO DAILY supplement 07/09/19 03/16/24 History handicap placard #1 ea 04/21/22 Unknown Rx fluticasone propionate 50 1 - 2 spray intranasal BID PRN 04/27/23 01/30/24 Rx mcg/actuation nasal allergies, congestion #16 grams spray,suspension sennosides 8.6 mg-docusate sodium 2 tab PO BID PRN constipation 10 01/23/24 01/30/24 Rx 50 mg tablet (Stool days #40 tabs Softener-Stimulant Laxative) blood sugar diagnostic (FreeStyle #100 ea 07/18/24 Unknown Rx Lite Strips) blood-glucose meter (FreeStyle #1 ea 07/18/24 Unknown Rx Lite Meter kit) linaclotide 72 mcg capsule 72 mcg PO DAILY PRN irritable 10/01/24 Unknown Rx (Linzess) colon #90 caps metformin 500 mg tablet 500 mg PO BID DIABETIC 1 month 12/18/24 Unknown Rx #180 tabs aspirin 81 mg tablet,delayed 81 mg PO QDAY 02/25/25 Unknown History release (Adult Low Dose Aspirin) baclofen 5 mg tablet 5 mg PO BID 02/25/25 Unknown History albuterol sulfate 90 mcg/actuation 1 - 2 puff inhalation Q4H PRN 05/15/25 Unknown Rx aerosol inhaler Wheezing #8.5 grams atorvastatin 40 mg tablet 40 mg PO QHS CHOLESTEROL #90 tabs 05/22/25 Unknown Rx gabapentin 300 mg capsule 300 mg PO TID 05/22/25 Unknown History ondansetron 4 mg disintegrating 4 mg PO QAM PRN nausea 05/22/25 Unknown History tablet oxycodone-acetaminophen 5 mg-325 1 tab PO TID 05/22/25 Unknown History mg tablet pantoprazole 40 mg tablet,delayed 40 mg PO QDAY #30 tabs 07/09/25 Unknown Rx release guaifenesin 600 mg tablet, 600 mg PO BID PRN cough #20 tabs 07/21/25 Unknown Rx extended release 12 hr tamsulosin 0.4 mg capsule 0.4 mg PO DAILY BPH #90 caps 07/21/25 Unknown Rx trazodone 100 mg tablet See Rx Instructions PO QHS sleep 07/22/25 Unknown Rx #90 tabs Allergy/AdvReac Type Severity Reaction Status Date / Time adhesive tape Allergy Rash Verified 07/31/25 09:17 sertraline (From Zoloft) AdvReac Unknown Verified 07/31/25 09:17 Family History Brother Heart disease Myocardial infarction 60's CAD (coronary artery disease) Father Myocardial infarction 65 CAD (coronary artery disease) Mother HLD (hyperlipidemia) when son was 16 following MVA, healthy aside HLD. Surgical History (Updated 07/31/25 @ 09:33 by Funmi Moura) Hx of laminectomy S/P laminectomy Status post discectomy for herniated nucleus pulposus History of lateral meniscus repair of right knee (~2021) Hx laparoscopic cholecystectomy (~11/2022) Hx of bilateral cataract extraction H/O cervical spine surgery (08/2020) History of herniorrhaphy History of carpal tunnel release History of back surgery History of left heart catheterization (09/09/11) H/O coronary artery bypass surgery (09/14/11) Social History household members: spouse current occupational status: retired pets and animals: Yes pets and animals: bird(s) Smoking Status: Former smoker Smokeless tobacco user: chewing tobacco alcohol intake: current alcohol intake frequency: holidays/special occasions only substance use type: marijuana and other details: medical marijuana for pain caffeine: Yes Type: coffee Number of servings: 2 do you feel safe at home: Yes Audit: Pertinent Findings Pertinent Findings Stress test pertinent findings: Stress test 03/24/2025. Normal pharmacologic myocardial perfusion stress test. Preserved ejection fraction. The gated ejection fraction is 56%. Echo (EF%) pertinent findings: Echo 03/21/2025. Normal LV size. The left ventricular ejection fraction is 60%. Stage I diastolic dysfunction. Moderate aortic stenosis. Recommendation Anesthesia Recommendation Anesthesia recommendation: OPTIMIZED for anesthesia
[2025-08-01] VITALS (8 sets, daily range): BP systolic 116–130; BP diastolic 68–77; PULSE 50–54; RESP 16–20; TEMP 36.2–36.7; O2SAT 93–99; BMI 27.6
--- OUTSIDE RECORDS SUMMARY | 2025-08-01 05:32 | XMS RPT_ITS | CCD ---
Author Organization [facility] Care Team Providers Care Dry Plasterer Name Role Phone LOPEZ COHEN Unavailable Unavailable LOPEZ COHEN Unavailable Unavailable Jose Luis Lopez Unavailable Unavailable LOPEZ COHEN E Unavailable Unavailable LOPEZ COHEN E Unavailable Unavailable Dr. Weston Gutierrez Chi Primary Care Provider Dr. Weston Gutierrez Chi Referring Provider 1([facility])[phone] Roof HISTORIAN RESEARCH ASSISTANT, HISTORIAN RESEARCH ASSISTANT-C Narciso Lovelace Attending Provider 1([facility])[phone] Dr. Marshall Bear Attending Provider 1([facility]) MD Marshall Bear Primary Care Provider Unavail MD Marshall Yañez Referring Provider UnavailDr. Talat Villalta Attending Provider 1([facility]) Dr. Jon Cast Attending Provider 1([facility]) 00 Dr. Talat Lund Referring Provider 1([facility]) Dr. Talat Lund Other Provider 1([facility])-[phone] TAE Colon Attending Provider 1([facility])[phone] TAE Doran Attending Provider Unavailab Dr. Marshall Gallegos Attending Provider [phone] MD Marshall Bear Primary Care Provider Unavail able Dr. Talat Ludn Attending Provider 1([facility]) Dr. Talat Lund Referring Provider 1([facility]) Dr. Talat Lund Other Provider 1([facility])-34 20 MD Marshall Bear Referring Provider Unavailabl TAE Minor Attending Provider 1([facility])[phone] TAE Doran Attending Provider Unavailab Dr. Jon Cortés Attending Provider 1([facility])-[phone] Marshall Bear Attending Provider [phone] [...] Unavailable JOSE JUAN PENA Attending Unavailable Edilia Hunter Attending Unavailable [...] Other Provider Dr. Tarik Wilkinson Other Provider [phone] Dr. Jaspreet Armstrong Other Provider Unavaila Dr. Bjorn Varghese Attending Provider Dr. Vin Wheatley Attending Provider Dr. Vin Wheatley Other Provider Dr. Ochoa Figueroa Attending Provider Dr. Saar Reaves Referring Provider Dr. Vin Edmond Emergency Provider MARIIA Ponce Attending Provider Dr. Marshall Bear Primary Care Provider Dr. Ventura Godoy Attending Provider Dr. Marshall Bear Referring Provider Dr. Marshall Bear Primary Care Provider Dr. Marshall Bear Referring Provider Dr. Ventura Godoy Attending Provider Dr. Ventuar Godoy Other Provider Delaney, Dr. Morrison Emergency Provider Junior, Dr. Nobles Admit Provider [phone] Giuliano Pacheco Other Provider [phone] Chema RUIZ, Dr. Gee Primary Care Provider Lynnette RUIZ, Dr. Gilliland Attending Provider María ANDERSON, Dr. Kim Referring Provider Chema RUIZ, Dr. Gee Attending Provider Chema RUIZ, Dr. Gee Referring Provider Dr. Bjorn Bradshaw MD Attending Provider Serene RUIZ, Dr. Webb Attending Provider Chema RUIZ, Dr. Gee Primary Care Provider Rosa Maria Jim Attending Provider Dr. Bjorn Bradshaw MD Other Provider Dr. Tarik Wilkinson MD Attending Provider Dr. Tarik Wilkinson MD Referring Provider Rosa Maria Jim Referring Provider Dr. Juan Carlos Gagnon MD Attending Provider Dr. Juan Carlos Gagnon MD Referring Provider Rosa Maria Jim Other Provider Imelda Cortes Attending Provider Dr. Marshall Bear MD Primary Care Physician Dr. Marshall Bear MD Attending Physician Dr. Bjorn Bradshaw MD Attending Physician [phone] Serene RUIZ, Dr. Webb Attending Physician Rosa Maria Jim Attending Physician [phone] Rosa Maria Jim Referring Provider [phone] Augustine RUIZ, Dr. Milan Nurse Practitioner Jaja RUIZ, Dr. Montanez Attending Physician Chelsi RUIZ, Dr. Rangel Attending Physician Rosa Mraia Jim Nurse Practitioner Imelda Cortes Attending Physician Chema, Marshall Referring Unavailable Bjorn Bradshaw Attending Unavailable Chema, Marshall Primary Care Unavailable Chema, Marshall Referring Unavailable Imelda Andrade Attending Unavailable Chema, Marshall Primary Care Unavailable Chema, Marshall Attending Unavailable Chema, Marshall Primary Care Unavailable Chema, Marshall Referring Unavailable Chema, Marshall Primary Care Unavailable Rosa Maria Jim Attending Unavail able ChemaMarshall Attending Unavailable Chema, Marshall Referring Unavailable Cehma, Marshall Primary Care Unavailable Bjorn Bradshaw Referring Unavailable Bjorn Bradshaw Attending Unavailable Chema, Marshall Primary Care Unavailable Chema, Marshall Primary Care Unavailable Juan Carlos Gagnon Referring Unavailable Juan Carlos Gagnon Attending Unavailable ChemaMarshall Attending Unavailable Chema, Marshall Referring Unavailable Chema, Marshall Primary Care Unavailable ChemaKristenen Attending Unavailable Chema, Marshall Referring Unavailable Chema, Marshall Primary Care Unavailable Chema, Marshall Primary Care Unavailable Talat Church Attending Unavailable Julio Daniel Referring Unavailable Chema, Marshall Attending Unavailable Chema, Marshall Primary Care Unavailable Chema, Marshall Referring Unavailable Bjorn Bradshaw Attending Unavailable Chema, Marshall Primary Care Unavailable Chema, Marshall Primary Care Unavailable Rosa Maria Jim Attending Unavail able Rosa Maria Jim Referring Unavail able Julio Daniel Attending Unavailable Chema, Marshall Primary Care Unavailable Julio Daniel Referring Unavailable Chema, Marshall Attending Unavailable Chema, Marshall Referring Unavailable Chema, Marshall Primary Care Unavailable Chema, Marshall Primary Care Unavailable Rosa Maria Jim Attending Unavail able Rosa Maria Jim Referring Unavail able Chema, Marshall Primary Care Unavailable Jaja, Tarik Referring Unavailable Jaja, Tarik Attending Unavailable Bjorn Bradshaw Consulting Unavailable Chema, Marshall Referring Unavailable Chema, Marshall Attending Unavailable Chema, Marshall Primary Care Unavailable Chema, Marshall Attending Unavailable Chema, Marshall Primary Care Unavailable Serene, Flint Attending Unavailable Chema, Marshall Primary Care Unavailable Chema, Marshall Referring Unavailable Imelda Andrade Attending Unavailable Chema, Marshall Primary Care Unavailable Chema, Marshall Attending Unavailable Chema, Marshall Primary Care Unavailable Chema, Marshall Primary Care Unavailable Rosa Maria Jim Referring Unavail able Serene, Jon Attending Unavailable Rosa Maria Jim Consulting Unavail able Chema, Marshall Primary Care Unavailable Serene, Flint Attending Unavailable Chema, Marshall Primary Care Unavailable Serene, Flint Attending Unavailable Rosa Maria Jim Referring Unavail able Chema, Marshall Referring Unavailable Chema, Marshall Primary Care Unavailable Rosa Maria Jim Attending Unavail able Chema, Marshall Primary Care Unavailable Serene, Jon Attending Unavailable Chema, Marshall Attending Unavailable Chema, Marshall Primary Care Unavailable Allergies Allergy Classification Reported Allergen(s) Allergy Type Date of Onset Reaction(s) Facility (18 sources) Adhesive Tape; Translations: [ADHESIVE TAPE (ROSINS)] Propensity to adverse reactions (disorder) 5 Itching [facility] Repository (18 sources) Contrast media; Translations: [CONTRAST DYE] Propensity to adverse reactions (disorder) 9 [facility] Repository (2 sources) cortisone; Translations: [CORTISONE] Drug Allergy 4 [facility] Repository (20 sources) sertraline; Translations: [SERTRALINE] Drug Allergy 4 Unknown [facility] Repository (18 sources) FD AND C BLUE NO.1; Translations: [FD AND C BLUE NO.1] Propensity to adverse reactions (disorder) 9 [facility] Repository (20 sources) Adhesive Tape; Translations: [adhesive tape] Allergy to substance 2 Rash [facility] Comment on above: skin bubbled up (12 sources) Iodinated Contrast Media Propensity to adverse reactions 2 unknown [facility] Medications Current Medications Medication Drug Class(es) Dates Sig (Normalized) Sig (Original) acetaminophen 325 mg / oxyCODONE hydrochloride 5 mg oral tablet (20 sources) Opioid Agonist Start: 05-22-2025 Oxycodone-Acetamin ophen 5-325 mg tablet Active 1 {tbl} PO THREE TIMES A DAY 0 May 22, 2025 12:00am Complies with drug therapy Start: 03-16-2024 End: 05-22-2025 Oxycodone-Acetaminophen 7.5- 325 mg tablet Discontinued 1 {tbl} PO TWICE A DAY March 16, 2024 12:00am May 22, 2025 8:06am pain Start: 01-16-2024 End: 01-23-2024 Oxycodone-Acetaminophen 7.5- 325 mg tablet Discontinued 1 {tbl} PO TWICE A DAY January 16, 2024 12:00am January 23, 2024 1:58pm PAIN Start: 01-01-2024 End: 01-12-2024 Oxycodone-Acetaminophen 7.5- 325 mg tablet Discontinued 1 {tbl} PO TWICE A DAY January 01, 2024 12:00am January 12, 2024 11:28am On Hold: Until oxycodone and Tylenol have been stopped by Dr. Gagnon Start: 08-11-2023 End: 09-08-2023 Oxycodone-Acetaminophen 7.5- 325 mg tablet Discontinued 1 {tbl} PO EVERY 6 HOURS as needed for pain 60 15 0 August 24, 2023 September 07, 2023 1:00am September 08, 2023 1:06am Status post laminectomy Lumbosacral radiculopathy at L5 Other specified postprocedural states Radiculopathy, lumbosacral region Start: 08-11-2023 End: 09-08-2023 Start: 08-11-2023 take 1 tablet by dulce maria th every six hours Oxycodone-Acetaminophen Active 1 TABLET PO EVERY 6 HOURS 60 15 August 24, 2023 Start: 07-28-2023 End: 08-07-2023 Oxycodone-Acetaminophen 7.5- 325 mg tablet Discontinued 1 {tbl} PO EVERY 6 HOURS as needed for pain 40 10 0 July 28, 2023 August 06, 2023 1:00am August 07, 2023 1:04am Status post laminectomy Other specified postprocedural states Start: 07-28-2023 End: 08-07-2023 Start: 07-28-2023 End: 08-07-2023 take 1 tablet by mouth every six hours Oxycodone-Acetaminophen Discontinued 1 TABLET PO EVERY 6 HOURS 40 July 28, 2023 August 07, 2023 12:04am Start: 07-20-2023 End: 07-30-2023 Oxycodone-Acetaminophen 5-32 5 mg tablet Discontinued 1 {tbl} PO EVERY 6 HOURS as needed for pain 40 10 0 July 20, 2023 July 29, 2023 1:00am July 30, 2023 1:04am Status post discectomy for herniated nucleus pulposus Herniated nucleus pulposus, L4-5 left Other specified postprocedural states Other intervertebral disc displacement, lumbar region Start: 07-20-2023 End: 07-30-2023 Start: 07-20-2023 End: 07-30-2023 take 1 tablet by mouth every six hours Oxycodone-Acetaminophen Discontinued 1 TABLET PO EVERY 6 HOURS 40 July 20, 2023 July 30, 2023 12:04am Start: 11-14-2022 End: 12-16-2022 Oxycodone-Acetaminophen (Per cocet) 5-325 mg tablet Discontinued 1 {tbl} PO Q8H as needed for pain 10 3 0 November 14, 2022 December 16, 2022 9:57am Spasm of back muscles Muscle spasm of back Start: 11-14-2022 End: 12-16-2022 take 1 tablet by dulce maria th every twelve hours as needed oxyCODONE-acetaminophen (PERCOCET) 7.5-3 25 mg tablet Take 1 tablet by mouth every 12 hours as needed for pain. 0 Active Comment on above: Take 1 tablet by dulce maria th every 12 hours as needed for pain. aspirin 81 mg delayed release oral tablet (20 sources) Platelet Aggregation Inhibitor, Nonsteroidal Anti-inflammatory Drug Start: 02-25-2025 Aspirin (Adult Low Dose Aspirin) 81 mg tablet,delayed release (DR/EC) Active 81 mg PO daily February 25, 2025 12:00am Complies with drug therapy Start: 04-03-2012 End: 02-27-2024 take 1 tablet by mouth once daily Aspirin 81 MG tablet,delayed release (DR/EC) Discontinued 81 mg PO DAILY December 23, 2015 12:00am February 27, 2024 8:56am [facility] Comment on above: Take 1 tablet by dulce maria th once daily. atorvastatin 40 mg oral tablet (20 sources) HMG-CoA Reductase Inhibitor Start: End: take 1 tablet by mouth at bedtime Atorvastatin 40 mg tablet Active 40 mg PO AT BEDTIME 90 3 May 22, 2025 8:25am CHOLESTEROL Complies with drug therapy Start: 11-19-2021 End: 08-21-2023 Start: 12-23-2015 End: 11-19-2021 take 1 tablet by mouth at bedtime Atorvastatin 80 mg tablet Discontinued 80 mg PO AT BEDTIME 30 0 September 16, 2020 9:43am November 19, 2021 9:02am CHOLESTEROL Comment on above: Take 1 tablet by dulce maria th daily at bedtime. azithromycin 250 mg oral tablet (20 sources) Macrolide Antimicrobial Start: 05-15-2025 Azithromycin 250 mg tablet Active 0 PO .COMPLEX 6 0 May 15, 2025 12:00am For 250 mg dose pack: take 500 mg today (day 1), then 250 mg for 4 days (days 2-5) PO Complies with drug therapy Start: 08-21-2023 End: 09-26-2023 Azithromycin 250 mg tablet D iscontinued 0 PO .COMPLEX 6 0 August 21, 2023 1:00am September 26, 2023 9:00am For 250 mg dose pack: take 500 mg today (day 1), then 250 mg for 4 days (days 2-5) PO Start: 08-21-2023 End: 09-26-2023 baclofen 5 mg oral tablet (20 sources) gamma-Aminobutyric Acid-ergic Agonist Start: 07-18-2024 End: 02-25-2025 take 1 tablet by mouth twice daily Baclofen 5 mg tablet Active 5 mg PO TWICE A DAY February 25, 2025 9:25am Complies with drug therapy Start: 01-16-2024 End: 04-18-2024 take 1 tablet by mouth twice daily Baclofen 5 mg tablet Discontinued 5 mg PO TWICE A DAY January 16, 2024 12:00am April 18, 2024 8:40am PAIN On Hold: None Start: 12-10-2023 End: 01-16-2024 take 1 tablet by mouth three times daily as needed for muscle spasms Baclofen 10 mg tablet Discontinued 10 mg PO 3 TIMES DAILY NEEDED as needed for muscle spasm December 10, 2023 12:00am January 16, 2024 3:29pm Start: 05-14-2020 End: 11-01-2023 take 1 tablet by mouth three times daily as needed for muscle spasms Baclofen 10 MG tablet Discontinued 10 mg PO 3 TIMES DAILY NEEDED as needed for Muscle Spasm May 14, 2020 12:00am November 01, 2023 11:40am Start: 08-03-2018 End: 07-09-2019 take 1 tablet by mouth twice daily Baclofen 10 MG tablet Discontinued 10 mg PO TWICE A DAY August 31, 2018 1:00am July 09, 2019 9:38am SPASMS Start: 08-03-2018 End: 07-09-2019 Comment on above: Take 10 mg by mouth three times daily as needed. Blood-Glucose Meter (Freestyle Lite Meter) kit (20 sources) Start: 07-18-2024 Blood-Glucose Meter (Freestyle Lite Meter) kit Active 0 .Route 1 0 July 18, 2024 3:21pm diabetes Test twice daily Start: 07-18-2024 Blood-Glucose Meter (Freestyle Lite Meter) kit Active 0 .Route 1 July 18, 2024 3:21pm Test twice daily Start: 09-15-2022 End: 07-18-2024 Blood-Glucose Meter (Freesty le Lite Meter) kit Discontinued 0 .Route 1 0 September 15, 2022 11:45am July 18, 2024 3:21pm diabetes Test twice daily Start: 09-15-2022 End: 07-18-2024 Blood-Glucose Meter (Freesty le Lite Meter) kit Discontinued 0 .Route 1 September 15, 2022 11:45am July 18, 2024 3:21pm Test twice daily Start: 09-15-2022 Blood-Glucose Meter (Freestyle Lite Meter) kit Active 0 .Route September 15, 2022 10:45am Test twice daily Start: 09-15-2022 Blood-Glucose Meter (Freestyle Lite Meter) kit Active 0 .Route September 15, 2022 11:45am Test twice daily Start: 09-15-2022 End: 09-15-2022 Blood-Glucose Meter (Freesty le Lite Meter) kit Discontinued 0 .Route September 15, 2022 12:00am September 15, 2022 10:46am As directed Start: 09-15-2022 End: 09-15-2022 Blood-Glucose Meter (Freesty le Lite Meter) kit Discontinued 0 .Route September 15, 2022 1:00am September 15, 2022 11:46am As directed cefuroxime 250 mg oral tablet (13 sources) Cephalosporin Antibacterial Start: 05-15-2025 End: 05-22-2025 take 1 tablet by mouth twice daily Cefuroxime Axetil 250 mg tablet Active 250 mg PO TWICE A DAY May 22, 2025 12:00am Complies with drug therapy Start: 09-20-2024 End: 09-27-2024 take 1 tablet by mouth twice daily Cefuroxime Axetil 500 mg tablet Discontinued 500 mg PO TWICE A DAY 14 7 0 September 20, 2024 1:00am September 26, 2024 1:00am September 27, 2024 1:11am codeine phosphate 2 mg/ml / guaiFENesin 20 mg/ml oral solution (2 sources) Opioid Agonist Start: 05-15-2025 take 1 mL by mouth every four to six hours as needed Codeine-Guaifenesin 10-100 mg/5 mL liquid Active 10 mL PO EVERY 4-6 HOURS as needed for cold symptoms 200 0 May 15, 2025 12:00am Complies with drug therapy dicyclomine hydrochloride 10 mg oral capsule (4 sources) Anticholinergic Start: 09-12-2022 take 10 mg by mouth twice daily Dicyclomine Active 10 MG PO TWICE A DAY 14 7 September 12, 2022 1:42pm docusate sodium 50 mg / sennosides, snf 8.6 mg oral tablet (10 sources) Start: 01-23-2024 Sennosides-Docusate Sodium (Stool Softener-Stimulant Laxat) 8.6-50 mg Tablet Active 2 {tbl} PO TWICE A DAY as needed for constipation 40 10 0 January 23, 2024 1:59pm Complies with drug therapy ferrous sulfate 325 mg oral tablet (19 sources) Start: 01-31-2025 take 1 tablet by mouth once daily Ferrous Sulfate 325 mg (65 mg iron) tablet Active 325 mg PO daily January 31, 2025 12:00am Complies with drug therapy Start: 01-23-2024 End: 02-27-2024 take 1 tablet by mouth every other day Ferrous Sulfate 325 mg (65 mg iron) tablet Discontinued 325 mg PO EVERY OTHER DAY 14 0 January 23, 2024 12:00am February 27, 2024 8:56am fluticasone propionate 0.05 mg/actuat metered dose nasal spray (20 sources) Corticosteroid Start: 08-02-2022 End: 04-27-2023 take 2 spray(s) nasal route every week as needed Fluticasone Propionate 50 mcg/actuation spray,suspension Active 1 - 2 NMA INTRANASAL TWICE A DAY as needed for allergies, congestion 16 3 April 27, 2023 1:09pm administer into each nostril; 2 sprays in each nostril for the first week Complies with drug therapy Start: 08-02-2022 End: 04-27-2023 Start: 07-05-2019 End: 06-29-2020 Fluticasone Propionate (Flon ase Allergy Relief) 50 mcg/actuation spray,suspension Discontinued 1 NMA INTRANASAL DAILY as needed for Nasal Congestion July 05, 2019 1:00am June 29, 2020 10:01am Start: 07-05-2019 End: 06-29-2020 Start: 07-05-2019 End: 06-29-2020 Fluticasone Propionate (Flon ase Allergy Relief) 50 mcg/actuation spray,suspension Discontinued 1 SPRAY INTRANASAL DAILY July 05, 2019 12:00am June 29, 2020 9:01am Start: 12-06-2018 End: 11-04-2022 take 2 spray(s) nasal route once daily fluticasone (FLONASE) 50 mcg/actuation nasal spray Indications: COPD with chronic bronchitis , Subacute maxillary sinusitis Use 2 Sprays in each nostril once daily. 1 Bottle 5 12/06/2018 11/04/2022 Discontinued Comment on above: Use 2 Sprays in each nostril once daily. gabapentin 300 mg oral capsule (20 sources) Anti-epileptic Agent Start: 05-22-2025 take 1 capsule by mouth three times daily Gabapentin 300 mg capsule Active 300 mg PO THREE TIMES A DAY May 22, 2025 12:00am Complies with drug therapy Start: 02-25-2025 End: 05-22-2025 take 1 capsule by mouth once daily in the morning, then take 2 capsules by mouth once daily at bedtime Gabapentin 100 mg capsule Discontinued 100 mg PO TWICE A DAY February 25, 2025 9:26am May 22, 2025 8:04am pain Take 1 cap QAM, 2 cap QHS Start: 04-18-2024 End: 02-25-2025 Gabapentin 100 mg capsule Discontinued 600 mg PO THREE TIMES A DAY April 18, 2024 8:40am February 25, 2025 9:28am pain Start: 03-28-2024 End: 04-18-2024 take 1 capsule by mouth three times daily Gabapentin 100 mg capsule Discontinued 100 mg PO THREE TIMES A DAY 90 1 March 28, 2024 2:10pm April 18, 2024 8:41am pain Start: 02-27-2024 End: 03-16-2024 Gabapentin 400 mg capsule Discontinued 300 mg PO THREE TIMES A DAY February 27, 2024 8:56am March 16, 2024 11:11pm PAIN Start: 02-27-2024 End: 03-28-2024 Gabapentin 300 mg capsule Discontinued 300 mg PO THREE TIMES A DAY February 27, 2024 12:00am March 28, 2024 2:11pm pain 300mg in morning and 600mg at night Start: 01-03-2024 End: 02-27-2024 take 1 capsule by mouth three times daily Gabapentin 400 mg Capsule Discontinued 400 mg PO THREE TIMES A DAY 90 0 January 03, 2024 12:00am February 27, 2024 8:58am PAIN Start: 01-01-2024 End: 01-03-2024 take 1 capsule by mouth three times daily Gabapentin 300 mg capsule Discontinued 300 mg PO THREE TIMES A DAY January 01, 2024 12:00am January 03, 2024 1:58pm Start: 05-14-2020 End: 01-02-2024 take 2 capsules by mouth three times daily Gabapentin 100 MG capsule Discontinued 200 mg PO THREE TIMES A DAY May 14, 2020 12:00am January 02, 2024 12:59am neuropathy Start: 05-14-2020 Start: 01-15-2018 take 1 capsule by mo [facility] twice daily gabapentin (NEURONTIN) 300 mg capsule Indications: Fibromyalgia Take 1 capsule by mouth twice daily. Prescribed by pain management. 0 01/15/2018 Active Start: 12-23-2015 End: 07-09-2019 take 3 capsules by mouth twice daily Gabapentin 100 MG capsule Discontinued 300 mg PO TWICE A DAY December 23, 2015 12:00am July 09, 2019 9:38am PAIN Start: 12-23-2015 End: 07-09-2019 Start: 12-23-2015 End: 07-09-2019 take 300 mg by mouth twice daily Gabapentin Discontinu ed 300 MG PO TWICE A DAY December 22, 2015 11:00pm July 09, 2019 8:38am Comment on above: [facility] Prescribed by pain management. guaiFENesin 400 mg oral tablet (7 sources) Start: 2 take 400 mg by mouth three times daily Guaifenesin Active 400 MG PO THREE TIMES A DAY 60 March 24, 2022 12:00am handicap placard (20 sources) Start: 2 handicap placard Active 0 .Route .MEDSUPPLY 1 0 April 21, 2022 9:04am Fatigue Mechanical pain of right knee Osteoarthritis of right knee Other fatigue Pain in right knee Unilateral primary osteoarthritis, right knee 5 years 04/21/22-04/21/27 fatique , pain in right knee , oteoarathritis Start: 04-21-[address] Active 0 .Route .MEDSUPPLY April 21, 2022 8:04am fatique , pain in right knee , oteoarathritis Start: 04-21-[address] Active 0 .Route .MEDSUPPLY 1 April 21, 2022 9:04am fatique , pain in right knee , oteoarathritis Start: 04-21-2022 End: 04-21-2022 handicap placard Discontinue d 0 .Route .MEDSUPPLY 1 0 April 21, 2022 12:00am April 21, 2022 9:05am Fatigue Mechanical pain of right knee Osteoarthritis of right knee Other fatigue Pain in right knee Unilateral primary osteoarthritis, right knee 5 years 04/21/22-04/21/27 As directed Start: 04-21-2022 End: 04-21-2022 handicap placard Discontinue d 0 .Route .MEDSUPPLY 1 April 20, 2022 11:00pm April 21, 2022 8:05am As directed Start: 04-21-2022 End: 04-21-2022 handicap placard Discontinue d 0 .Route .MEDSUPPLY 1 April 21, 2022 12:00am April 21, 2022 9:05am As directed metoclopramide 10 mg oral tablet (20 sources) Dopamine-2 Receptor Antagonist Start: 05-15-2024 take 1 tablet by mouth every eight hours as needed for nausea Metoclopramide Hcl 10 mg tablet Active 10 mg PO EVERY 8 HOURS as needed for nausea/vomiting May 15, 2024 12:00am Complies with drug therapy Start: 10-01-2023 End: 11-01-2023 take 1 tablet by mouth every eight hours as needed for nausea and vomiting Metoclopramide Hcl (Reglan) 10 mg tablet Discontinued 10 mg PO EVERY 8 HOURS NEEDED as needed for nausea and vomiting 14 0 October 01, 2023 7:19pm November 01, 2023 11:42am Multivitamin preparation (16 sources) Start: 07-09-2019 take 1 tablet by mouth once daily Multivitamin Active 1 TABLET PO DAILY July 09, 2019 9:39am Start: 07-09-2019 take 1 tablet by dulce maria th once daily Multivitamin Active 1 TABLET PO DAILY July 09, 2019 12:00am Start: 07-09-2019 take 1 tablet by dulce maria th once daily Multivitamin Active 1 TABLET PO DAILY July 09, 2019 1:00am Multivitamin tablet (10 sources) Start: 07-09-2019 Multivitamin t ablet Active 1 {tbl} PO DAILY July 09, 2019 1:00am supplement Complies with drug therapy Start: 07-09-2019 Multivitamin t ablet Active 1 {tbl} PO DAILY July 09, 2019 1:00am supplement Start: 07-09-2019 Multivitamin t ablet Active 1 {tbl} PO DAILY July 09, 2019 1:00am ondansetron 4 mg disintegrating oral tablet (20 sources) Serotonin-3 Receptor Antagonist Start: 05-22-2025 take 1 tablet by mouth once daily in the morning as needed for nausea Ondansetron 4 mg tablet,disintegrating Active 4 mg PO EVERY MORNING as needed for nausea May 22, 2025 12:00am Complies with drug therapy Start: 10-03-2023 End: 12-18-2023 take 1 tablet by mouth every six hours as needed for nausea and vomiting Ondansetron 4 mg tablet,disintegrating Discontinued 4 mg PO EVERY 6 HOURS as needed for nausea and vomiting October 03, 2023 1:00am December 18, 2023 11:23am Start: 09-12-2022 End: 12-16-2022 take 1 tablet by mouth every eight hours as needed for nausea and vomiting Ondansetron 4 mg tablet,disintegrating Discontinued 4 mg PO Q8H as needed for nausea and vomiting September 12, 2022 1:00am December 16, 2022 9:57am traZODone hydrochloride 100 mg oral tablet (20 sources) Serotonin Reuptake Inhibitor Start: 08-29-2024 Trazodone 100 mg tablet Active 0 PO AT BEDTIME 90 August 29, 2024 4:16pm sleep Take 1 to 1 1/2 tablets as needed for sleep orally at bedtime; Complies with drug therapy Start: 12-23-2015 End: 08-29-2024 take 50-100 mg by mouth at bedtime Trazodone 50 mg tablet Discontinued 50 - 100 mg PO AT BEDTIME 90 August 21, 2023 5:05pm August 29, 2024 4:33pm sleep Comment on above: Take 1-2 tablets by mouth daily at bedtime. Completed/Discontinued Medications Medication Drug Class(es) Dates Sig (Normalized) Sig (Original) acetaminophen 500 mg oral tablet (20 sources) Start: 01-03-2024 End: 03-16-2024 take 2 tablets by mouth every eight hours Acetaminophen 500 mg tablet Discontinued 1000 mg PO EVERY 8 HOURS February 27, 2024 8:58am March 16, 2024 11:10pm PAIN Start: 12-12-2023 End: 01-03-2024 take 2 capsules by mouth every eight hours as needed for pain Acetaminophen 500 mg capsule Discontinued 1000 mg PO EVERY 8 HOURS NEEDED as needed for pain 3 0 December 12, 2023 12:11pm January 03, 2024 1:55pm Start: 07-18-2023 End: 12-12-2023 take 2 capsules by mouth every six hours as needed for pain Acetaminophen 500 mg capsule Discontinued 1000 mg PO EVERY 6 HOURS as needed for pain July 18, 2023 1:00am December 12, 2023 12:11pm Start: 07-18-2023 End: 12-12-2023 acetaminophen 325 mg / HYDROcodone bitartrate 5 mg oral tablet (20 sources) Opioid Agonist Start: 12-23-2015 End: 03-14-2022 Hydrocodone-Acetaminophen 5- 325 mg tablet Discontinued 1 {tbl} PO TWICE A DAY as needed for pain 30 September 16, 2020 March 14, 2022 8:29am Start: 12-23-2015 End: 03-14-2022 Start: 12-23-2015 End: 03-14-2022 take 1 tablet by mouth twice daily Hydrocodone-Acetaminophen Discontinued 1 TABLET PO TWICE A DAY September 16, 2020 March 14, 2022 7:29am Start: 04-26-2013 End: 11-04-2022 take 1 tablet by mouth every six hours as needed HYDROcodone-acetaminophen 5-325 mg per tablet Indications: Sciatica Take 1 tablet by mouth every 6 hours as needed. 60 tablet 0 04/26/2013 11/04/2022 Discontinued Comment on above: Take 1 tablet by dulce maria every 6 hours as needed. [id number] 200 actuat albuter ol 0.09 mg/actuat metered dose inhaler (20 sources) beta2-Adrenergic Agonist Start: 04-21-2022 Start: 04-21-2022 take 1 puff(s) by in halation every four hours as needed Albuterol Sulfate Active 1 - 2 PUFF INHALATION EVERY 4 HOURS NEEDED 8.5 April 21, 2022 8:32am Start: 08-31-2018 take 1 puff(s) by in halation every four hours as needed Albuterol Sulfate Active 1 - 2 PUFF INHALATION EVERY 4 HOURS NEEDED August 31, 2018 9:47am Start: 08-31-2018 take 1 puff(s) by in halation every four hours as needed Albuterol Sulfate Active 1 - 2 PUFF INHALATION EVERY 4 HOURS NEEDED August 31, 2018 1:00am Start: 08-31-2018 End: 05-15-2025 Albuterol Sulfate 90 mcg/act uation HFA aerosol inhaler Discontinued 1 - 2 NMA INHALATION EVERY 4 HOURS NEEDED as needed for Wheezing 8.5 3 April 21, 2022 9:32am January 31, 2024 10:01am Start: 08-31-2018 End: 04-21-2022 Albuterol Sulfate 1 INHALER inhaler Discontinued 1 - 2 NMA INHALATION EVERY 4 HOURS NEEDED as needed for Wheezing August 31, 2018 1:00am April 21, 2022 9:32am Start: 08-31-2018 End: 04-21-2022 take 1 puff(s) by inhalation every four hours as needed Albuterol Sulfate Discontinued 1 - 2 PUFF INHALATION EVERY 4 HOURS NEEDED August 31, 2018 12:00am April 21, 2022 8:32am Start: 08-31-2018 End: 04-21-2022 take 1 puff(s) by inhalation every four hours as needed Albuterol Sulfate Discontinued 1 - 2 PUFF INHALATION EVERY 4 HOURS NEEDED August 31, 2018 1:00am April 21, 2022 9:32am Start: 08-31-2018 take 1 puff(s) by in halation every four hours as needed Albuterol Sulfate Active 1 - 2 PUFF INHALATION EVERY 4 HOURS NEEDED August 31, 2018 1:00am Start: 10-26-2017 take 2 puff(s) by in halation every four hours as needed for wheezing albuterol HFA (VENTOLIN HFA) 90 mcg/actuation inhaler Inhale 2 Puffs as instructed every 4 hours as needed for Wheezing/Shortness of Breath. 1 Inhaler 5 10/26/2017 Active Comment on above: Inhale 2 Puffs as in structed every 4 hours as needed for Wheezing/Shortness of Breath. amoxicillin 875 mg / clavulanate 125 mg oral tablet (20 sources) Penicillin-class Antibacterial Start: 12-20-2022 End: 12-30-2022 Amoxicillin-Pot Clavulanate 875-125 mg tablet Discontinued 1 {tbl} PO Q12H 20 10 0 December 20, 2022 12:00am December 29, 2022 12:00am December 30, 2022 12:04am Acute sinusitis, unspecified Start: 12-20-2022 End: 12-30-2022 Start: 12-20-2022 End: 12-30-2022 take 1 tablet by mouth every twelve hours Amoxicillin-Pot Clavulanate Discontinued 1 TABLET PO Q12H 20 December 19, 2022 11:00pm December 29, 2022 11:04pm Start: 08-02-2022 End: 09-12-2022 Amoxicillin-Pot Clavulanate 875-125 mg tablet Discontinued 1 {tbl} PO TWICE A DAY 14 August 02, 2022 1:00am September 12, 2022 10:05am Start: 08-02-2022 End: 09-12-2022 Start: 08-02-2022 End: 09-12-2022 take 1 tablet by mouth twice daily Amoxicillin-Pot Clavulanate Discontinued 1 TABLET PO TWICE A DAY August 02, 2022 12:00am September 12, 2022 9:05am Start: 07-07-2021 End: 10-01-2021 Amoxicillin-Pot Clavulanate 875-125 mg tablet Discontinued 1 {tbl} PO TWICE A DAY July 07, 2021 1:00am October 01, 2021 11:29am Start: 07-07-2021 End: 10-01-2021 Start: 07-07-2021 End: 10-01-2021 take 1 tablet by mouth twice daily Amoxicillin-Pot Clavulanate Discontinued 1 TABLET PO TWICE A DAY July 07, 2021 12:00am October 01, 2021 10:29am ascorbic acid 1000 mg oral tablet (20 sources) Vitamin C Start: 08-10-2020 End: 05-11-2023 take 1 tablet by mouth once daily Ascorbic Acid (Vitamin C) 1,000 MG tablet Discontinued 1000 mg PO DAILY August 10, 2020 1:00am May 11, 2023 2:30pm End: 11-04-2022 take 1 tablet by mouth once daily Ascorbic Acid (VITAMIN C) 100 mg tablet Take 100 mg by mouth once daily. 0 11/04/2022 Discontinued Comment on above: Take 100 mg by mouth once daily. benzonatate 200 mg oral capsule (20 sources) Non-narcotic Antitussive Start: 03-24-20 End: 09-12-19 take 1 capsule by mouth three times daily as needed for cough Benzonatate 200 mg capsule Discontinued 200 mg PO THREE TIMES A DAY as needed for cough 60 1 March 24, 2022 12:00am September 12, 2022 10:06am Blood-Glucose Meter (FREESTYLE LITE METER) monitoring kit (14 sources) Start: 07-25-20 Blood-Glucose Meter (FREESTYLE LITE METER) monitoring kit Test blood sugar(s) one times daily. Dx: Type 2 DM - Controlled E11.9 Insulin: No 1 Each 0 07/25/2018 Active Comment on above: Test blood sugar(s) one times daily. Dx: Type 2 DM - Controlled E11.9 Insulin: No calcium carbonate 750 mg chewable tablet (8 sources) Start: 07-17-20 End: 11-05-19 calcium Carbonate 300 mg, 750mg, (TUMS) 300 mg (750 mg) chewable tablet Indications: Gastroesophageal reflux disease with esophagitis Take 1 tablet by mouth as needed (heartburn). 0 07/17/2018 11/04/2022 Discontinued Comment on above: Take 1 tablet by dulce maria th as needed (heartburn). cefepime 2000 mg injection (10 sources) Cephalosporin Antibacterial Start: 01-22-20 End: 02-16-20 Cefepime 2 gram Recon Soln Discontinued 2 g IV EVERY 8 HOURS 117 39 0 January 22, 2024 12:00am February 16, 2024 2:58pm stop date 03/01/24. Dx: spine osteomyelitis. Weekly bmp, cbc, esr, and vanc trough. Fax to [phone]. Routine picc care per protocol. cefTRIAXone 2000 mg injection (20 sources) Cephalosporin Antibacterial Start: 10-26-19 End: 12-12-19 24 Ceftriaxone 2 gram recon soln Discontinued 2 g IV Q24H 38 0 October 26, 2023 12:00am December 12, 2023 12:09pm stop date 12/03/23. Dx: spine osteomyelitis. Weekly bmp, cbc, ESR, and vanc trough; fax to [phone]. Routine picc care per protocol. celecoxib 200 mg oral capsule (20 sources) Nonsteroidal Anti-inflammatory Drug Start: 01-03-20 End: 01-16-20 take 1 capsule by mouth twice daily Celecoxib 200 mg Capsule Discontinued 200 mg PO TWICE A DAY 10 5 0 January 03, 2024 12:00am January 16, 2024 3:34pm On Hold: MD [place] Start: 07-05-2019 End: 09-12-2022 take 1 capsule by mouth once daily Celecoxib (Celebrex) 200 mg capsule Discontinued 200 mg PO DAILY 10 April 21, 2022 12:00am September 12, 2022 10:06am Comment on above: Take 200 mg by mouth once daily. cholecalciferol 0.01 mg oral tablet (20 sources) Vitamin D Start: 08-10-20 End: 10-01-19 take 1 tablet by mouth once daily Cholecalciferol (Vitamin D3) 10 MCG tablet Discontinued 10 ug PO DAILY August 10, 2020 1:00am October 01, 2021 11:29am End: 11-04-2022 take 1 capsule by mouth once daily cholecalciferol, vitamin D3, 10 mcg (400 unit) cap Take 400 Units by mouth once daily. 0 11/04/2022 Discontinued Comment on above: Take 400 Units by mo [facility] once daily. ciprofloxacin 500 mg oral tablet (20 sources) Quinolone Antimicrobial Start: 05-19-20 End: 05-26-20 take 1 tablet by mouth every twelve hours Ciprofloxacin Hcl 500 mg tablet Discontinued 500 mg PO Q12H 14 7 0 May 19, 2023 12:00am May 25, 2023 12:00am May 26, 2023 12:04am ciprofloxacin 3 mg/ml / dexamethasone 1 mg/ml otic suspension (20 sources) Corticosteroid, Quinolone Antimicrobial Start: 10-28-19 End: 11-04-19 Ciprofloxacin-Dexamet hasone 0.3-0.1 % drops,suspension Discontinued 4 NMA OTIC TWICE A DAY 7.5 7 0 October 27, 2022 12:00am November 02, 2022 12:00am November 03, 2022 12:05am Left ear Start: 10-27-2022 End: 11-03-2022 Start: 10-27-2022 End: 11-03-2022 Ciprofloxacin-Dexamethasone Discontinued 4 DRP OTIC TWICE A DAY 7.5 7 October 26, 2022 11:00pm November 02, 2022 11:05pm cyclobenzaprine hydrochloride 10 mg oral tablet (20 sources) Muscle Relaxant Start: 07-05-2019 End: 07-09-2019 take 1 tablet by mouth at bedtime Cyclobenzaprine 10 mg tablet Discontinued 10 mg PO BEDTIME July 05, 2019 1:00am July 09, 2019 9:38am Start: 07-05-2019 End: 07-09-2019 diphenhydrAMINE hydrochloride 25 mg / naproxen sodium 220 mg oral tablet (8 sources) Histamine-1 Receptor Antagonist, Nonsteroidal Anti-inflammatory Drug End: 11-04-2022 take 1 tablet by mouth once daily as needed naproxen-diphenhydrAMINE 220-25 mg tab Take 220 mg by mouth once daily as needed. 0 11/04/2022 Discontinued Comment on above: Take 220 mg by mouth once daily as needed. doxycycline monohydrate 100 mg oral capsule (20 sources) Tetracycline-class Drug Start: 10-04-2024 End: 03-27-2025 take 1 capsule by mouth twice daily Doxycycline Monohydrate 100 mg capsule Discontinued 100 mg PO TWICE A DAY October 04, 2024 1:00am March 27, 2025 8:56am Start: 02-22-2024 End: 09-10-2024 take 1 capsule by mouth twice daily Doxycycline Hyclate 100 mg capsule Discontinued 100 mg PO TWICE A DAY 60 30 2 March 20, 2024 1:03pm September 10, 2024 10:45am osteomyelitis DULoxetine 20 mg delayed release oral capsule (20 sources) Serotonin and Norepinephrine Reuptake Inhibitor Start: 03-28-2024 End: 04-18-2024 take 1 capsule by mouth once daily Duloxetine 20 mg capsule,delayed release(DR/EC) Discontinued 20 mg PO DAILY 30 March 28, 2024 2:17pm April 18, 2024 8:40am ANXIETY Start: 01-03-2024 End: 03-28-2024 take 1 capsule by mouth once daily Duloxetine 30 mg capsule,delayed release(DR/EC) Discontinued 30 mg PO DAILY 90 February 05, 2024 9:58am March 28, 2024 2:11pm ANXIETY hydrocortisone 10 mg/ml / neomycin 3.5 mg/ml / polymyxin b [id number] unt/ml otic suspension (20 sources) Aminoglycoside Antibacterial, Polymyxin-class Antibacterial, Corticosteroid Start: 12-20-2022 End: 12-30-2022 Tclatazg-Rssmfaydq-Ij 3.5-10,000-1 mg/mL-unit/mL-% drops,suspension Discontinued 3 NMA OTIC Q4H 10 10 0 December 20, 2022 12:00am December 29, 2022 12:00am December 30, 2022 12:04am apply to (cotton) wick; replace wick every 24 hours Start: 12-20-2022 End: 12-30-2022 Start: 12-20-2022 End: 12-30-2022 Boonefed-Pxxdeobwj-Zn Discon tinued 3 DRP OTIC Q4H 10 December 19, 2022 11:00pm December 29, 2022 11:04pm apply to (cotton) wick; replace wick every 24 hours ketoconazole 20 mg/ml medicated shampoo (20 sources) Azole Antifungal Start: 11-25-2020 End: 10-01-2021 Ketoconazole 2 % shampoo Discontinued 1 NMA TOPICAL As Directed November 25, 2020 12:00am October 01, 2021 11:31am Start: 11-25-2020 End: 10-01-2021 lidocaine 0.05 mg/mg medicated patch (20 sources) Antiarrhythmic, Amide Local Anesthetic Start: 05-11-2023 End: 05-31-2023 Lidocaine 5 % adhesive patch,medicated Discontinued 2 NMA TOPICAL DAILY 15 1 May 30, 2023 4:26pm May 31, 2023 2:19pm leave on most painful area for up to 12 hrs linaclotide 0.072 mg oral capsule (20 sources) Guanylate Cyclase-C Agonist Start: 01-02-2024 End: 10-01-2024 take 1 capsule by mouth once daily as needed Linaclotide (Linzess) 72 mcg capsule Discontinued 72 ug PO DAILY as needed for irritable colon February 27, 2024 8:57am October 01, 2024 4:57pm Start: 10-01-2021 End: 12-18-2023 take 1 capsule by mouth once daily Linaclotide 72 mcg capsule Discontinued 72 ug PO DAILY 90 3 June 27, 2023 7:19pm December 18, 2023 11:23am IBS Start: 05-14-2020 End: 10-01-2021 Linaclotide 145 MCG capsule Discontinued 145 ug PO NEEDED as needed for ibs May 14, 2020 12:00am October 01, 2021 11:31am Start: 05-14-2020 End: 10-01-2021 take 72 ug by mouth once daily as needed linaclotide (LINZESS ORAL) Take 72 mcg by mouth once daily as needed. 0 Active Comment on above: Take 72 mcg by mouth once daily as needed. medical marijuana card (11 sources) Start: 08-21-2023 End: 11-01-2023 Start: 08-21-2023 End: 11-01-2023 medical marijuana card Disco ntinued PO August 21, 2023 1:00am November 01, 2023 11:41am Start: 08-21-2023 medical mariju [place] card Active PO August 21, 2023 12:00am metFORMIN hydrochloride 500 mg oral tablet (20 sources) Biguanide Start: 08-31-2018 End: 12-18-2024 take 1 tablet by mouth twice daily Metformin 500 mg tablet Discontinued 500 mg PO TWICE A DAY 180 April 27, 2023 1:09pm December 12, 2023 12:09pm DIABETES Comment on above: Take 1 tablet by dulce maria th twice daily with meals. methylPREDNISolone 4 mg oral tablet (20 sources) Corticosteroid Start: 04-29-2024 End: 05-15-2024 take 1 tablet by mouth once Methylprednisolone (Medrol (Raphael)) 4 mg tablets,dose pack Discontinued 0 PO per package directions April 29, 2024 12:00am May 15, 2024 3:05pm PO PER PKG DIR for 6 days Start: 07-28-2023 End: 08-03-2023 take 1 tablet by mouth once Methylprednisolone (Medrol (Raphael)) 4 mg tablets,dose pack Discontinued 0 PO per package directions 21 6 July 28, 2023 1:00am August 02, 2023 1:00am August 03, 2023 1:05am PO PER PKG DIR Start: 07-28-2023 End: 08-03-2023 Start: 05-12-2023 End: 05-18-2023 take 1 tablet by mouth once daily Methylprednisolone (Medrol (Raphael)) 4 mg tablets,dose pack Discontinued 4 mg PO DAILY 6 6 0 May 12, 2023 12:00am May 17, 2023 12:00am May 18, 2023 12:04am Start: 05-12-2023 End: 05-18-2023 Start: 03-22-2022 End: 03-28-2022 take 1 tablet by mouth once Methylprednisolone (Medrol (Raphael)) 4 mg tablets,dose pack Discontinued 4 mg PO per package directions 21 6 0 March 22, 2022 12:00am March 27, 2022 12:00am March 28, 2022 12:04am Start: 03-22-2022 End: 03-28-2022 Start: 06-23-2021 End: 06-23-2021 Depo-Medrol (methylprednisol one acetate) 40 mg/mL suspension for injection Discontinued 40 MG INTRAARTIC ONCE 1 June 23, 2021 1:53pm June 23, 2021 2:22pm Start: 02-22-2021 End: 02-28-2021 take 1 tablet by mouth once Methylprednisolone (Medrol (Raphael)) 4 mg tablets,dose pack Discontinued 0 PO per package directions 21 6 0 February 22, 2021 12:00am February 27, 2021 12:00am February 28, 2021 12:01am PO PER PKG DIR Start: 02-22-2021 End: 02-28-2021 Start: 01-27-2021 End: 01-27-2021 Depo-Medrol (methylprednisol one acetate) 40 mg/mL suspension for injection Discontinued 80 MG INTRAARTIC ONCE 2 January 27, 2021 2:30pm January 27, 2021 3:31pm Start: 11-19-2020 End: 11-25-2020 Methylprednisolone Discontin ued 0 PO per package directions November 19, 2020 10:49am November 25, 2020 8:02am PO PER PKG DIR Start: 11-19-2020 End: 11-25-2020 Methylprednisolone 4 mg tabl ets,dose pack Discontinued 0 PO per package directions November 19, 2020 12:00am November 25, 2020 8:02am PO PER PKG DIR Start: 11-19-2020 End: 11-25-2020 Start: 11-19-2020 End: 11-25-2020 Methylprednisolone Discontin ued 0 PO per package directions November 18, 2020 11:00pm November 25, 2020 7:02am PO PER PKG DIR Start: 11-19-2020 End: 11-25-2020 Methylprednisolone Discontin ued 0 PO per package directions November 19, 2020 12:00am November 25, 2020 8:02am PO PER PKG DIR Start: 10-14-2020 End: 11-25-2020 take 1 tablet by mouth once Methylprednisolone (Medrol (Raphael)) 4 mg tablets,dose pack Discontinued 0 PO per package directions October 14, 2020 1:00am November 25, 2020 8:02am PO PER PKG DIR Start: 10-14-2020 End: 11-25-2020 Start: 08-31-2018 End: 07-05-2019 Methylprednisolone 4 MG tabl et Discontinued 4 mg PO DIRECTED August 31, 2018 1:00am July 05, 2019 8:31am PAIN Start: 08-31-2018 End: 07-05-2019 Multivitamin capsule (14 sources) take 1 capsule by mouth once daily Multivitamin capsule Take 1 capsule by mouth once daily. 0 Active Comment on above: Take 1 capsule by mo [facility] once daily. multivitamin tablet (1 source) Start: 08-18-19 End: 08-09-20 take 1 tablet by mouth once daily multivitamin tablet Take 1 tablet by mouth once daily. 0 08/18/2017 08/09/2022 Discontinued Comment on above: Take 1 tablet by dulce maria once daily. naproxen sodium 220 mg oral capsule (20 sources) Nonsteroidal Anti-inflammatory Drug Start: 02-05-20 End: 12-18-19 take 1 capsule by mouth twice daily as needed for pain Naproxen Sodium (Aleve) 220 mg capsule Discontinued 220 mg PO TWICE A DAY as needed for Pain February 04, 2022 12:00am December 18, 2023 11:23am On Hold: Hold for 5 days as patient had JUNI. Start: 07-09-2019 End: 09-04-2020 take 1 tablet by mouth twice daily as needed for pain Naproxen 250 mg tablet Discontinued 250 mg PO TWICE A DAY as needed for Pain Or Fever July 09, 2019 1:00am September 04, 2020 5:27pm omeprazole 40 mg delayed release oral capsule (20 sources) Proton Pump Inhibitor Start: 09-27-2022 End: 01-02-2024 take 1 capsule by mouth once daily as needed for gastroesophageal reflux disease Omeprazole 40 mg capsule,delayed release(DR/EC) Discontinued 40 mg PO DAILY as needed for Reflux 30 1 August 21, 2023 5:04pm January 02, 2024 1:01am Comment on above: [facility]. oxyCODONE hydrochloride 5 mg oral tablet (20 sources) Opioid Agonist Start: 01-23-2024 End: 03-16-2024 take 2.5-5 mg by mouth every six hours as needed for pain Oxycodone 5 mg tablet Discontinued 2.5 - 5 mg PO EVERY 6 HOURS as needed for pain 40 10 0 February 02, 2024 March 16, 2024 11:11pm Status post lumbar spinal fusion Osteomyelitis of lumbar spine Arthrodesis status Osteomyelitis of vertebra, lumbar region Start: 01-03-2024 End: 01-16-2024 take 2 tablets by mouth every six hours as needed for pain Oxycodone 5 mg Tablet Discontinued 10 mg PO EVERY 6 HOURS NEEDED as needed for Pain Score 6-10 56 7 0 January 03, 2024 January 16, 2024 3:31pm Intractable back pain Dorsalgia, unspecified Start: 10-21-2023 End: 01-02-2024 take 7.5 mg by mouth three times daily as needed for pain Oxycodone 5 mg tablet Discontinued 7.5 mg PO 3 TIMES DAILY NEEDED as needed for pain October 21, 2023 1:00am January 02, 2024 1:02am Start: 10-21-2023 Start: 05-10-2023 End: 09-26-2023 take 1 capsule by mouth every eight hours Oxycodone 5 mg capsule Discontinued 5 mg PO Q8H 0 May 10, 2023 12:00am September 26, 2023 9:00am Start: 03-01-2022 End: 03-22-2022 take 5-10 mg by mouth every four hours as needed for pain Oxycodone 5 mg tablet Discontinued 5 - 10 mg PO Q4H as needed for pain 30 7 0 March 01, 2022 March 22, 2022 7:21am Other acute postprocedural pain Other acute postprocedural pain Start: 03-01-2022 End: 03-22-2022 pantoprazole 40 mg delayed release oral tablet (15 sources) Proton Pump Inhibitor Start: 01-03-2024 End: 02-05-2024 take 1 tablet by mouth once daily Pantoprazole 40 mg Tablet,Delayed Release (Dr/Ec) Discontinued 40 mg PO DAILY 30 January 03, 2024 12:00am February 05, 2024 9:58am GERD Start: 09-14-2022 take 1 tablet by dulce maria th once daily Pantoprazole (Protonix) 40 mg tablet,delayed release (DR/EC) Active 40 MG PO DAILY September 14, 2022 1:00am sucralfate 1000 mg oral tablet (20 sources) Aluminum Complex Start: 09-27-2023 End: 11-01-2023 take 1 tablet by mouth at bedtime Sucralfate (Carafate) 1 gram tablet Discontinued 1 g PO before meals and at bedtime September 27, 2023 1:00am November 01, 2023 11:43am stomach Start: 09-27-2023 End: 11-01-2023 Start: 09-14-2022 End: 12-16-2022 take 1 tablet by mouth at bedtime Sucralfate (Carafate) 1 gram tablet Discontinued 1 g PO before meals and at bedtime September 14, 2022 1:00am December 16, 2022 9:57am Start: 09-14-2022 End: 12-16-2022 Comment on above: Take 1 tablet before meals and at bedtime as needed sulfamethoxazole 800 mg / trimethoprim 160 mg oral tablet (20 sources) Dihydrofolate Reductase Inhibitor Antibacterial, Sulfonamide Antimicrobial Start: 09-05-2023 End: 09-12-2023 Sulfamethoxazole-Trime thoprim (Bactrim Ds) 800-160 mg tablet Discontinued 1 {tbl} PO TWICE A DAY 14 7 0 September 05, 2023 1:00am September 11, 2023 1:00am September 12, 2023 1:05am Start: 09-05-2023 End: 09-12-2023 tamsulosin hydrochloride 0.4 mg oral capsule (20 sources) alpha-Adrenergic Jey Start: 01-23-2024 End: 07-08-2024 take 1 capsule by mouth once daily Tamsulosin 0.4 mg capsule Discontinued 0.4 mg PO DAILY March 16, 2024 12:00am July 08, 2024 1:00pm BPH Start: 08-21-2023 End: 12-09-2023 take 1 capsule by mouth at bedtime as needed Tamsulosin 0.4 mg capsule Discontinued 0.4 mg PO AT BEDTIME as needed for urinary retention October 21, 2023 1:00am December 09, 2023 9:35pm Start: 11-21-2018 End: 11-04-2022 take 1 capsule by mouth once daily Tamsulosin 0.4 mg capsule Discontinued 0.4 mg PO DAILY November 25, 2020 12:00am October 01, 2021 11:31am Comment on above: Take 1 capsule by mo [facility] daily at bedtime. vancomycin 1500 mg injection (20 sources) Glycopeptide Antibacterial Start: 01-22-2024 End: 02-16-2024 Vancomycin 1.5 gram recon soln Discontinued 1.5 g IV Q12H 39 0 January 22, 2024 12:00am February 16, 2024 2:58pm stop date 03/01/24. Dx: spine osteomyelitis. Weekly bmp, cbc, esr, and vanc trough. Fax to [phone]. Routine picc care per protocol. Start: 10-26-2023 End: 12-09-2023 Vancomycin 1,000 mg recon so ln Discontinued 2 g IV Q12H 76 38 0 October 26, 2023 12:00am December 09, 2023 9:35pm stop date 12/03/23. Dx: spine osteomyelitis. Weekly bmp, cbc, ESR, and vanc trough; fax to [phone]. Routine picc care per protocol. varenicline 0.5 mg oral tablet (20 sources) Partial Cholinergic Nicotinic Agonist Start: 07-05-2019 End: 07-09-2019 take 1 tablet by mouth once daily Varenicline Tartrate (Chantix) 0.5 mg tablet Discontinued 0.5 mg PO DAILY July 05, 2019 1:00am July 09, 2019 9:39am (20 sources) Start: 08-21-2023 End: 11-01-2023 Start: 08-21-2023 Start: 09-15-2022 Start: 09-15-2022 Start: 09-15-2022 End: 09-15-2022 Start: 04-21-2022 Start: 04-21-2022 End: 04-21-2022 Start: 08-10-2020 End: 05-11-2023 Start: 07-09-2019 Start: 08-31-2018 End: 04-21-2022 Problems Active Problems Problem Classification Problem Date Documented Da te Episodic/Chronic Acute and unspecified renal failure (16 sources) Acute renal failure syndrome; Translations: [Acute kidney failure, unspecified] 12-10-2023 Episodic Acute bronchitis (20 sources) Acute bronchitis; Translations: [Acute bronchitis, unspecified] 08-17-2019 Episodic Acute cerebrovascular disease (6 sources) Cerebrovascular accident; Translations: [Cerebral infarction, unspecified] 10-21-2023 Chronic Acute posthemorrhagic anemia (10 sources) Acute posthemorrhagic anemia; Translations: [Acute posthemorrhagic anemia] 01-20-2024 Episodic Cardiac dysrhythmias (8 sources) Bradycardia; Translations: [Bradycardia, unspecified] Onset: 04-17-2025 02-25-2025 Episodic Chronic obstructive pulmonary disease and bronchiectasis (15 sources) Emphysematous bronchitis; Translations: [Chronic obstructive pulmonary disease, unspecified] 07-17-2017 Chronic Complication of device; implant or graft (20 sources) Atherosclerosis of coronary artery bypass graft(s), unspecified, with other forms of angina pectoris; Translations: [Mechanical complication of venous catheter] Onset: 09-19-2017 11-01-2023 Chronic Coronary atherosclerosis and other heart disease (20 sources) Atherosclerotic heart disease of [place] coronary artery without angina pectoris; Translations: [Coronary atherosclerosis] Onset: 09-04-2012 Chronic Coronary atherosclerosis and other heart disease (6 sources) Presence of aortocoronary bypass graft; Translations: [Aortocoronary bypass status] Onset: 09-14-2011 Episodic Diabetes mellitus without complication (20 sources) Type 2 diabetes mellitus; Translations: [Type 2 diabetes mellitus without complications] Onset: 07-17-2018 Chronic Diabetes mellitus without complication (15 sources) Impaired fasting glycemia; Translations: [Impaired fasting glucose] Onset: 07-15-2016 07-15-2016 Episodic Disorders of lipid metabolism (20 sources) Hyperlipidemia; Translations: [Hyperlipidemia, unspecified] Onset: 08-14-2023 Chronic Comment on above: ON MED Diverticulosis and diverticulitis (2 sources) Diverticular disease; Translations: [Diverticulosis of intestine, part unspecified, without perforation or abscess without bleeding] Onset: 10-07-2022 Chronic E Codes: Adverse effects of medical drugs (10 sources) Adverse reaction to drug; Translations: [Adverse effect of unspecified drugs, medicaments and biological substances, initial encounter] 02-13-2024 Episodic Esophageal disorders (17 sources) Gastro-esophageal reflux disease with esophagitis; Translations: [Gastroesophageal reflux disease with esophagitis] Onset: 09-24-2016 09-24-2016 Chronic Essential hypertension (20 sources) Essential hypertension; Translations: [Essential (primary) hypertension] Onset: 04-21-2025 Chronic Fluid and electrolyte disorders (20 sources) Hyponatremia; Translations: [Hypo-osmolality and hyponatremia] 04-10-2024 Episodic Genitourinary symptoms and ill-defined conditions (20 sources) Urinary incontinence; Translations: [Unspecified urinary incontinence] 10-04-2021 Chronic Genitourinary symptoms and ill-defined conditions (20 sources) Increased frequency of urination; Translations: [Frequency of micturition] 05-19-2023 Episodic Headache; including migraine (20 sources) Tension-type headache; Translations: [Tension-type headache, unspecified, not intractable] 04-20-2023 Chronic Headache; including migraine (20 sources) Headache; Translations: [Headache] 02-09-2023 Episodic Heart valve disorders (20 sources) Aortic valve stenosis with insufficiency; Translations: [Nonrheumatic aortic (valve) stenosis with insufficiency] Onset: 04-17-2025 Chronic Hyperplasia of prostate (20 sources) Benign prostatic hypertrophy with outflow obstruction; Translations: [Benign prostatic hyperplasia with lower urinary tract symptoms] Onset: 08-04-2017 Chronic Infective arthritis and osteomyelitis (except that caused by tuberculosis or sexually transmitted disease) (20 sources) Osteomyelitis of vertebra; Translations: [Osteomyelitis of vertebra, lumbar region] Onset: 03-11-2025 01-19-2024 Chronic Joint disorders and dislocations; trauma-related (20 sources) Chondromalacia of patella; Translations: [Chondromalacia patellae, right knee] 01-17-2022 Chronic Joint disorders and dislocations; trauma-related (20 sources) Tear of medial meniscus of knee; Translations: [Other tear of medial meniscus, current injury, right knee, initial encounter] Episodic Malaise and fatigue (20 sources) Fatigue; Translations: [Other fatigue] Episodic Nonspecific chest pain (9 sources) Chest pain; Translations: [Chest pain, unspecified] Onset: 04-17-2025 02-25-2025 Episodic Nutritional deficiencies (11 sources) Nutritional marasmus; Translations: [Unspecified severe protein-calorie malnutrition] Onset: 05-15-2025 01-02-2024 Chronic Osteoarthritis (20 sources) Osteoarthritis of left knee joint; Translations: [Unilateral primary osteoarthritis, left knee] Onset: 12-10-2003 Chronic Other acquired deformities (10 sources) Scoliosis of lumbar spine; Translations: [Scoliosis, unspecified] 01-19-2024 Chronic Other acquired deformities (17 sources) Scoliosis deformity of spine; Translations: [Scoliosis, unspecified] 01-31-2025 Chronic Other aftercare (20 sources) Follow-up status; Translations: [Encounter for other orthopedic aftercare] 03-09-2022 Episodic Other aftercare (8 sources) Encounter for other orthopedic aftercare; Translations: [Unspecified orthopedic aftercare] Episodic Other and unspecified benign neoplasm (4 sources) History of polyp of colon; Translations: [Personal history of colonic polyps] Episodic Other bone disease and musculoskeletal deformities (20 sources) Chondromalacia; Translations: [Chondromalacia, right knee] 01-17-2022 Episodic Other bone disease and musculoskeletal deformities (20 sources) Chondromalacia; Translations: [Chondromalacia, left knee] 01-17-2022 Episodic Other bone disease and musculoskeletal deformities (2 sources) Chondromalacia of left knee; Translations: [Chondromalacia, left knee] 01-17-2022 Episodic Other circulatory disease (10 sources) Pulse irregular; Translations: [Other specified symptoms and signs involving the circulatory and respiratory systems] 03-06-2024 Episodic Other connective tissue disease (20 sources) Difficulty balancing; Translations: [Other symptoms and signs involving the nervous system] 10-04-2021 Episodic Other connective tissue disease (20 sources) Fibromyalgia; Translations: [Fibromyalgia] Onset: 12-10-2003 04-12-2016 Episodic Other connective tissue disease (1 source) Other symptoms and signs involving the nervous system; Translations: [Other symptoms involving nervous and musculoskeletal systems] Episodic Other connective tissue disease (1 source) Fibromyalgia; Translations: [Myalgia and myositis, unspecified] Episodic Other connective tissue disease (13 sources) H/O: arthritis; Translations: [Personal history of other diseases of the musculoskeletal system and connective tissue] 12-09-2023 Episodic Other connective tissue disease (20 sources) History of osteomyelitis; Translations: [Personal history of other diseases of the musculoskeletal system and connective tissue] 12-09-2023 Episodic Other connective tissue disease (12 sources) Foot pain; Translations: [Pain in unspecified foot] 04-29-2024 Episodic Other connective tissue disease (18 sources) History of cervical spine fusion; Translations: [Arthrodesis status] 09-10-2024 Episodic Other connective tissue disease (8 sources) Pain in calf; Translations: [Pain in left lower leg] 05-15-2024 Episodic Other connective tissue disease (20 sources) History of lumbar fusion; Translations: [Arthrodesis status] 10-04-2024 Episodic Comment on above: Patient has had oste omyelitis related to lumbar spinal fusion. Other connective tissue disease (2 sources) Pain of left calf; Translations: [Pain in left lower leg] 05-15-2024 Episodic Other connective tissue disease (1 source) Arthrodesis status; Translations: [Arthrodesis status] Onset: 04-18-2025 Episodic Other diseases of kidney and ureters (13 sources) Renal impairment; Translations: [Disorder of kidney and ureter, unspecified] 12-09-2023 Episodic Other diseases of kidney and ureters (3 sources) Disorder of kidney and ureter, unspecified; Translations: [Unspecified disorder of kidney and ureter] 12-12-2023 Episodic Other ear and sense organ disorders (15 sources) Bilateral hearing loss; Translations: [Unspecified hearing loss, bilateral] 08-09-2021 Chronic Other ear and sense organ disorders (20 sources) Otitis externa; Translations: [Unspecified otitis externa, unspecified ear] 10-27-2022 Chronic Other ear and sense organ disorders (2 sources) Unspecified otitis externa, unspecified ear; Translations: [Infective otitis externa, unspecified] 10-27-2022 Chronic Other gastrointestinal disorders (20 sources) Swollen abdomen; Translations: [Abdominal distension (gaseous)] 09-12-2022 Episodic Other gastrointestinal disorders (2 sources) Abdominal distension ; Translations: [Abdominal distension (gaseous)] 09-20-2022 Episodic Other inflammatory condition of skin (14 sources) Rosacea; Translations: [Rosacea, unspecified] 08-09-2021 Chronic Other lower respiratory disease (20 sources) Cough; Translations: [Cough] 01-17-2022 Episodic Other nervous system disorders (20 sources) Expressive dysphasia; Translations: [Aphasia] 10-21-2023 Chronic Other nervous system disorders (11 sources) Aphasia; Translations: [Aphasia] 10-21-2023 Chronic Other nervous system disorders (10 sources) Metabolic encephalopathy; Translations: [Metabolic encephalopathy] 03-29-2024 Chronic Other nervous system disorders (20 sources) Acute postoperative pain; Translations: [Other acute postprocedural pain] 03-01-2022 Episodic Other nervous system disorders (20 sources) Post-surgery back pain; Translations: [Other acute postprocedural pain] 08-04-2023 Episodic Other non-traumatic joint disorders (10 sources) Charcot's joint of foot; Translations: [Charcot's joint, left ankle and foot] 07-02-2024 Chronic Other non-traumatic joint disorders (1 source) Charcot's joint, left ankle and foot; Translations: [Charcot's joint, left ankle and foot] Onset: 09-05-2024 Chronic Other non-traumatic joint disorders (20 sources) Pain in left knee; Translations: [Mechanical pain of left knee] 01-17-2022 Episodic Other non-traumatic joint disorders (8 sources) Pain in right knee; Translations: [Pain in joint, lower leg] Episodic Other non-traumatic joint disorders (10 sources) Ankle pain; Translations: [Pain in left ankle and joints of left foot] 06-17-2024 Episodic Other nutritional; endocrine; and metabolic disorders (15 sources) Obese class I; Translations: [Obesity, unspecified] Onset: 01-15-2018 01-15-2018 Chronic Other nutritional; endocrine; and metabolic disorders (11 sources) Weight loss; Translations: [Abnormal weight loss] 10-16-2023 Episodic Other nutritional; endocrine; and metabolic disorders (10 sources) Decrease in appetite; Translations: [Anorexia] 02-13-2024 Episodic Other nutritional; endocrine; and metabolic disorders (10 sources) Weight decreased; Translations: [Abnormal weight loss] 11-03-2023 Episodic Other nutritional; endocrine; and metabolic disorders (10 sources) Adult failure to thrive syndrome; Translations: [Adult failure to thrive] 02-13-2024 Episodic Other upper respiratory infections (20 sources) Chronic sinusitis, unspecified; Translations: [Unspecified sinusitis (chronic)] 08-02-2022 Chronic Other upper respiratory infections (20 sources) Acute frontal sinusitis; Translations: [Acute frontal sinusitis, unspecified] Onset: 06-05-2025 11-18-2020 Episodic Otitis media and related conditions (20 sources) Acute left otitis media; Translations: [Otitis media, unspecified, left ear] 12-20-2022 Episodic Residual codes; unclassified (20 sources) H/O Spinal surgery; Translations: [Other specified postprocedural states] 07-18-2023 Episodic Residual codes; unclassified (20 sources) Other specified postprocedural states; Translations: [Other postprocedural status] 07-20-2023 Episodic Residual codes; unclassified (20 sources) Altered mental status; Translations: [Altered mental status, unspecified] 10-21-2023 Episodic Residual codes; unclassified (11 sources) Altered mental status, unspecified; Translations: [Altered mental status] 10-21-2023 Episodic Residual codes; unclassified (17 sources) History of clinical finding in subject; Translations: [Personal history of other specified conditions] 11-08-2023 Episodic Comment on above: RIGHT KNEE Residual codes; unclassified (17 sources) Contact with and (suspected) exposure to other hazardous, chiefly nonmedicinal, chemicals; Translations: [Exposure to Agent [place]] 11-09-2023 Episodic Residual codes; unclassified (10 sources) Intermittent confusion; Translations: [Disorientation, unspecified] 02-13-2024 Episodic Residual codes; unclassified (10 sources) H/O: endocrine disorder; Translations: [Personal history of other specified conditions] 02-08-2024 Episodic Residual codes; unclassified (10 sources) Chill; Translations: [Chills (without fever)] 09-19-2024 Episodic Spondylosis; intervertebral disc disorders; other back problems (20 sources) Prolapsed cervical intervertebral disc without myelopathy; Translations: [Other cervical disc displacement, unspecified cervical region] Onset: 12-10-2003 12-10-2003 Chronic Spondylosis; intervertebral disc disorders; other back problems (20 sources) Cervical spine ankylosis; Translations: [Fusion of spine, cervical region] Onset: 07-28-2009 Episodic Substance-related disorders (20 sources) Opioid dependence; Translations: [Opioid dependence, uncomplicated] Onset: 03-11-2025 10-04-2021 Chronic Syncope (20 sources) Vasovagal syncope; Translations: [Syncope and collapse] Onset: 04-21-2025 03-07-2024 Episodic Comment on above: AT TIMES Unclassified (1 source) Unknown / UNK(Unknown) Onset: 09-19-2017 Unclassified (1 source) Other intervertebral disc degeneration, lumbar region without mention of lumbar back pain or lower extremity pain; Translations: [Other intervertebral disc degeneration, lumbar region without mention of lumbar back pain or lower extremity pain] Onset: 04-18-2025 Unclassified (1 source) Other intervertebral disc degeneration, lumbar region with discogenic back pain and lower extremity pain; Translations: [Other intervertebral disc degeneration, lumbar region with discogenic back pain and lower extremity pain] Onset: 04-18-2025 Unclassified (1 source) Low back pain, unspecified; Translations: [Low back pain, unspecified] Onset: 01-31-2025 Viral infection (20 sources) COVID-19; Translations: [Severe acute respiratory syndrome coronavirus 2 (SARS-CoV-2) detected] Onset: 11-19-2020 Episodic Past or Other Problems Problem Classification Problem Date Documented Da te Episodic/Chronic Abdominal pain (20 sources) Upper abdominal pain; Translations: [Upper abdominal pain, unspecified] Onset: 10-20-2022 09-12-2022 Episodic Biliary tract disease (5 sources) Cholelithiasis without obstruction; Translations: [Calculus of gallbladder without cholecystitis without obstruction] Onset: 10-20-2022 Episodic Coronary atherosclerosis and other heart disease (1 source) Coronary atherosclerosis and other heart disease Onset: 09-19-2017 Fever of unknown origin (20 sources) Fever; Translations: [Fever, unspecified] Onset: 09-19-2024 03-17-2024 Episodic Gastritis and duodenitis (2 sources) Gastroduodenitis; Translations: [Gastroduodenitis, unspecified, without bleeding] Onset: 10-07-2022 Episodic Immunizations and screening for infectious disease (20 sources) Patient encounter status; Translations: [Encounter for screening for COVID-19] Onset: 07-18-2024 Episodic Other and unspecified benign neoplasm (14 sources) Tubular adenoma of colon; Translations: [Benign neoplasm of colon, unspecified] Onset: 10-30-2014 10-30-2014 Episodic Other and unspecified benign neoplasm (1 source) Personal history of colonic polyps; Translations: [History of colonic polyps] Onset: 10-07-2022 Episodic Other connective tissue disease (7 sources) Personal history of other diseases of the musculoskeletal system and connective tissue; Translations: [Personal history of arthritis] Onset: 09-19-2024 12-12-2023 Episodic Other connective tissue disease (1 source) Pain in left foot; Translations: [Pain in left foot] Onset: 10-30-2024 Episodic Other connective tissue disease (1 source) Pain in unspecified foot; Translations: [Pain in unspecified foot] Onset: 06-17-2024 Episodic Other connective tissue disease (1 source) Pain in left lower leg; Translations: [Pain in left lower leg] Onset: 06-17-2024 Episodic Other gastrointestinal disorders (15 sources) Constipation; Translations: [Constipation, unspecified] Onset: 06-28-2010 07-17-2017 Episodic Other lower respiratory disease (1 source) Other forms of dyspnea; Translations: [Other forms of dyspnea] Onset: 09-19-2017 Episodic Other screening for suspected conditions (not mental disorders or infectious disease) (2 sources) Encounter for screening for lipoid disorders; Translations: [Encounter for screening for malignant neoplasm of prostate] Onset: 10-03-2024 Episodic Residual codes; unclassified (1 source) Chills (without fever); Translations: [Chills (without fever)] Onset: 09-19-2024 Episodic Results Test Name Value Interpretation Reference Range Facility CBC W/Diff, Automatedon 10-0 Absolute Lymph 1.63 X10 3/uL Normal 0.83-4.51 [facility] Comment on above: Performed By: #### L 500.4050, L501.9985, L501.9520, L500.4100, L503.0106, L100.0100, L506.1001 #### [facility] [address] [place], [address] Absolute Neut 4.7 X10 3/uL Normal 2.0-7.7 [facility] Comment on above: Performed By: #### L 500.4050, L501.9985, L501.9520, L500.4100, L503.0106, L100.0100, L506.1001 #### [facility] [address] [place], [address] Basophils/100 WBC (Bld) 0.8 % Normal 0-1 [facility] Comment on above: Performed By: #### L 500.4050, L501.9985, L501.9520, L500.4100, L503.0106, L100.0100, L506.1001 #### [facility] [address] [place], [address] Eosinophils/100 WBC (Bld) 4.0 % Normal 0-5 [facility] Comment on above: Performed By: #### L 500.4050, L501.9985, L501.9520, L500.4100, L503.0106, L100.0100, L506.1001 #### [facility] [address] [place], [address] Erythrocyte distribution width (RBC) [Ratio] 13.0 % Normal 11.6-14.6 [facility] Comment on above: Performed By: #### L 500.4050, L501.9985, L501.9520, L500.4100, L503.0106, L100.0100, L506.1001 #### [facility] [address] [place], [address] Hematocrit (Bld) [Volume fraction] 39.2 % Low 40-54 [facility] Comment on above: Performed By: #### L 500.4050, L501.9985, L501.9520, L500.4100, L503.0106, L100.0100, L506.1001 #### [facility] [address] [place], [address] Hemoglobin (Bld) [Mass/Vol] 12.6 g/dL Low 13.0-16.5 [facility] Comment on above: Performed By: #### L 500.4050, L501.9985, L501.9520, L500.4100, L503.0106, L100.0100, L506.1001 #### [facility] [address] [place], [address] IG% 0.400 Normal 0.0-0.9 [facility] Comment on above: Result Comment: IG% - Immature Granulocytes (promyelocytes, myelocytes and metamyelocytes) > 1% indicates that a LEFT SHIFT is Present. Performed By: #### L 500.4050, L501.9985, L501.9520, L500.4100, L503.0106, L100.0100, L506.1001 #### [facility] [address] [place], [address] Lymphocytes/100 WBC (Bld) 21.9 % Normal 19-41 [facility] Comment on above: Performed By: #### L 500.4050, L501.9985, L501.9520, L500.4100, L503.0106, L100.0100, L506.1001 #### [facility] [address] [place], [address] MCH (RBC) [Entitic mass] 29.2 pg Normal 27.0-32.0 [facility] Comment on above: Performed By: #### L 500.4050, L501.9985, L501.9520, L500.4100, L503.0106, L100.0100, L506.1001 #### [facility] [address] [place], [address] MCHC (RBC) [Mass/Vol] 32.1 g/dL Normal 32-36 [facility] Comment on above: Performed By: #### L 500.4050, L501.9985, L501.9520, L500.4100, L503.0106, L100.0100, L506.1001 #### [facility] [address] [place], [address] MCV (RBC) [Entitic vol] 90.7 fL Normal 80-94 [facility] Comment on above: Performed By: #### L 500.4050, L501.9985, L501.9520, L500.4100, L503.0106, L100.0100, L506.1001 #### [facility] [address] [place], [address] Monocytes/100 WBC (Bld) 9.8 % Normal 0-10 [facility] Comment on above: Performed By: #### L 500.4050, L501.9985, L501.9520, L500.4100, L503.0106, L100.0100, L506.1001 #### [facility] [address] [place], [address] Neutrophils/100 WBC (Bld) 63.1 % Normal 47-70 [facility] Comment on above: Performed By: #### L 500.4050, L501.9985, L501.9520, L500.4100, L503.0106, L100.0100, L506.1001 #### [facility] [address] [place], [address] Nucleated RBC (Bld) [#/Vol] 0 10*3/uL Normal 0-5 [facility] Comment on above: Performed By: #### L 500.4050, L501.9985, L501.9520, L500.4100, L503.0106, L100.0100, L506.1001 #### [facility] [address] [place], [address] Platelet mean volume (Bld) [Entitic vol] 8.5 fL Normal 6.2-12.0 [facility] Comment on above: Performed By: #### L 500.4050, L501.9985, L501.9520, L500.4100, L503.0106, L100.0100, L506.1001 #### [facility] [address] [place], [address] Platelets (Bld) [#/Vol] 261 10*3/uL Normal 150-450 [facility] Comment on above: Performed By: #### L 500.4050, L501.9985, L501.9520, L500.4100, L503.0106, L100.0100, L506.1001 #### [facility] [address] [place], [address] RBC (Bld) [#/Vol] 4.32 10*6/uL Low 4.6-6.2 [facility] Comment on above: Performed By: #### L 500.4050, L501.9985, L501.9520, L500.4100, L503.0106, L100.0100, L506.1001 #### [facility] [address] [place], [address] RDW SD 42.6 fl Normal 35.1-43.9 [facility] Comment on above: Performed By: #### L 500.4050, L501.9985, L501.9520, L500.4100, L503.0106, L100.0100, L506.1001 #### [facility] [address] [place], [address] WBC (Bld) [#/Vol] 7.5 10*3/uL Normal 4.4-11.0 [facility] Comment on above: Performed By: #### L 500.4050, L501.9985, L501.9520, L500.4100, L503.0106, L100.0100, L506.1001 #### [facility] [address] [place], [address] Cardiology Visit Reporton Cardiology Visit Report [facility] [address] [place] [address] OFFICE VISIT Date of Service: 05/22/25 MR#: [id number] Acct: [id number] Name: JARET BATES Rep #: [id number] : 1955 Provider: TAE Reyes Age/Sex: 70/M Location[place] [facility] Status: Signed HPI HPI History of Present Illness Details: Jaret Bates is a 70-year-old man who presents today for a cardiovascular outpatient follow-up. He is a gentleman with a history of coronary artery disease status post coronary artery bypass graft surgery in 2012. He had a left internal mammary artery to the left anterior descending artery, saphenous vein graft to circumflex artery and saphenous vein graft to ramus intermedius. He also has a history of hyperlipidemia. He was last seen in February for evaluation of dizziness. At that time, he reported a syncopal episode that had occurred 3 weeks prior, in which he lost consciousness for approximately 20???30 seconds after standing up. His PCP felt this was likely a vasovagal reaction. Subsequent workup included an echocardiogram in March, which showed an EF of 60%, stage 1 diastolic dysfunction, mild focal aortic valve calcification, and moderate aortic stenosis, with progression of the aortic stenosis compared to a prior echocardiogram. A pharmacologic nuclear stress test was negative for ischemia, and a 14-day event monitor showed no arrhythmias. He has not had any further syncopal events. He does sometimes have positional dizziness. He thinks that this is related to his back and neck. It was suggested to him that he undergo back surgery he is not sure if he wants to do this because of the complications he had last year. 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 Accompanied by: Self Is patient in pain?: No Allergies adhesive tape Allergy (Verified 05/22/25 08:03) Rash sertraline (From Zoloft) Adverse Reaction (Verified 05/22/25 08:03) Unknown Medications ???Medication ???Instructions ???Recorded ???Confirmed ???Type multivitamin 1 tab PO DAILY supplement 07/09/19 05/22/25 History handicap placard #1 ea 04/21/22 05/15/25 Rx fluticasone propionate 50 1 - 2 spray intranasal BID PRN 05/22/25 Rx mcg/actuation nasal allergies, congestion #16 grams spray,suspension sennosides 8.6 mg-docusate sodium 2 tab PO BID PRN constipation 10 01/23/24 05/22/25 Rx 50 mg tablet (Stool days #40 tabs Softener-Stimulant Laxative) metoclopramide HCl 10 mg tablet 10 mg PO Q8 PRN nausea/vomiting 05/22/25 History tamsulosin 0.4 mg capsule 0.4 mg PO DAILY BPH #90 caps 07/0805/15/25 Rx blood sugar diagnostic (FreeStyle #100 ea 07/18/24 05/15/25 Rx Lite Strips) blood-glucose meter (FreeStyle #1 ea 07/18/24 05/15/25 Rx Lite Meter kit) trazodone 100 mg tablet See Rx Instructions PO QHS sleep 0 08/29/24 05/22/25 Rx #90 tabs linaclotide 72 mcg capsule 72 mcg PO DAILY PRN irritable 09/1405/22/25 Rx (Linzess) colon #90 caps metformin 500 mg tablet 500 mg PO BID DIABETIC 1 month 03/0705/22/25 Rx #180 tabs ferrous sulfate 325 mg (65 mg 325 mg PO QDAY 01/31/25 05/22/25 H istory iron) tablet aspirin 81 mg tablet,delayed 81 mg PO QDAY 02/25/25 05/22/25 Hi story release (Adult Low Dose Aspirin) baclofen 5 mg tablet 5 mg PO BID 02/25/25 05/22/25 Hist ory albuterol sulfate 90 mcg/actuation 1 - 2 puff inhalation Q4H PRN 05/22/25 Rx aerosol inhaler Wheezing #8.5 grams azithromycin 250 mg tablet See Rx Instructions PO .COMPLEX #6 05/15/25 05/22/25 Rx tabs codeine 10 mg-guaifenesin 100 mg/5 10 ml PO Q4-6H PRN cold symptoms 05/15/25 05/22/25 Rx mL oral liquid #200 mL atorvastatin 40 mg tablet 40 mg PO QHS CHOLESTEROL #90 tabs 05/22/25 05/22/25 Rx cefuroxime axetil 250 mg tablet 250 mg PO BID 05/22/25 05/22/25 Hi story gabapentin 300 mg capsule 300 mg PO TID 05/22/25 05/22/25 Hi story ondansetron 4 mg disintegrating 4 mg PO QAM PRN nausea 05/22/25 History tablet oxycodone-acetaminophen 5 mg-325 1 tab PO TID 05/22/25 05/22/25 His tory mg tablet Ejection fraction %: 60 Have you fallen in the past year?: No Nurse's Note: Pt is getting over an illness and is on his last day of one antibiotic, and is still on another one. He is back to bowling. His watch has notified him of a gait change. [facility] Medical History ... Normal [facility] Comprehensive Metabolic Prof walter 05-22-2025 Albumin [Mass/Vol] 4.2 g/dL Normal 3.4-4.8 [facility] Comment on above: Performed By: #### L 500.4050, L501.9985, L501.9520, L500.4100, L503.0106, L100.0100, L506.1001 #### [facility] [address] [place], [address] Albumin/Globulin [Mass ratio] 1.5 {ratio} Normal 0.9-2.4 [facility] Comment on above: Performed By: #### L 500.4050, L501.9985, L501.9520, L500.4100, L503.0106, L100.0100, L506.1001 #### [facility] [address] [place], [address] ALK PHOS 93 U/L Normal 40-129 [facility] Comment on above: Performed By: #### L 500.4050, L501.9985, L501.9520, L500.4100, L503.0106, L100.0100, L506.1001 #### [facility] [address] [place], [address] ALT [Catalytic activity/Vol] 17 U/L Normal <=46 [facility] Comment on above: Performed By: #### L 500.4050, L501.9985, L501.9520, L500.4100, L503.0106, L100.0100, L506.1001 #### [facility] [address] [place], [address] AST [Catalytic activity/Vol] 23 U/L Normal <=37 [facility] Comment on above: Performed By: #### L 500.4050, L501.9985, L501.9520, L500.4100, L503.0106, L100.0100, L506.1001 #### [facility] [address] [place], [address] Bilirubin [Mass/Vol] 0.36 mg/dL Normal 0.00-1.30 [facility] Comment on above: Performed By: #### L 500.4050, L501.9985, L501.9520, L500.4100, L503.0106, L100.0100, L506.1001 #### [facility] [address] [place], [address] BUN/CRE 18.7 RATIO Normal 10-20 [facility] Comment on above: Performed By: #### L 500.4050, L501.9985, L501.9520, L500.4100, L503.0106, L100.0100, L506.1001 #### [facility] [address] [place], [address] Calcium [Mass/Vol] 9.3 mg/dL Normal 7.6-11.0 [facility] Comment on above: Performed By: #### L 500.4050, L501.9985, L501.9520, L500.4100, L503.0106, L100.0100, L506.1001 #### [facility] [address] [place], [address] Chloride [Moles/Vol] 106 mmol/L Normal 98-108 [facility] Comment on above: Performed By: #### L 500.4050, L501.9985, L501.9520, L500.4100, L503.0106, L100.0100, L506.1001 #### [facility] [address] [place], [address] CO2 [Moles/Vol] 27.3 mmol/L Normal 21.0-32.0 [facility] Comment on above: Performed By: #### L 500.4050, L501.9985, L501.9520, L500.4100, L503.0106, L100.0100, L506.1001 #### [facility] [address] [place], [address] Creatinine [Mass/Vol] 1.27 mg/dL High 0.70-1.20 [facility] Comment on above: Performed By: #### L 500.4050, L501.9985, L501.9520, L500.4100, L503.0106, L100.0100, L506.1001 #### [facility] [address] [place], [address] GAP 9 Normal 5-15 [facility] Comment on above: Performed By: #### L 500.4050, L501.9985, L501.9520, L500.4100, L503.0106, L100.0100, L506.1001 #### [facility] [address] [place], [address] GFR/1.73 sq M.predicted among non-blacks MDRD (S/P/Bld) [Vol rate/Area] 60 mL/min/{1.73_m2} Normal >60 [facility] Comment on above: Result Comment: mL/m in/1.73m2 CKD-EPI Creatinine Equation (2020) Performed By: #### L 500.4050, L501.9985, L501.9520, L500.4100, L503.0106, L100.0100, L506.1001 #### [facility] [address] [place], [address] Globulin (S) [Mass/Vol] 2.8 g/dL Normal 2.2-4.2 [facility] Comment on above: Performed By: #### L 500.4050, L501.9985, L501.9520, L500.4100, L503.0106, L100.0100, L506.1001 #### [facility] [address] [place], [address] Glucose [Mass/Vol] 99 mg/dL Normal 70-99 [facility] Comment on above: Performed By: #### L 500.4050, L501.9985, L501.9520, L500.4100, L503.0106, L100.0100, L506.1001 #### [facility] [address] [place], [address] Potassium [Moles/Vol] 4.4 mmol/L Normal 3.3-5.1 [facility] Comment on above: Performed By: #### L 500.4050, L501.9985, L501.9520, L500.4100, L503.0106, L100.0100, L506.1001 #### [facility] [address] [place], [address] Sodium [Moles/Vol] 142 mmol/L Normal 133-145 [facility] Comment on above: Performed By: #### L 500.4050, L501.9985, L501.9520, L500.4100, L503.0106, L100.0100, L506.1001 #### [facility] [address] [place], [address] T PROT 7.0 g/dL Normal 5.9-8.4 [facility] Comment on above: Performed By: #### L 500.4050, L501.9985, L501.9520, L500.4100, L503.0106, L100.0100, L506.1001 #### [facility] [address] [place], [address] Urea nitrogen [Mass/Vol] 24 mg/dL High 4-19 [facility] Comment on above: Performed By: #### L 500.4050, L501.9985, L501.9520, L500.4100, L503.0106, L100.0100, L506.1001 #### [facility] [address] [place], [address] Hemoglobin A1con 05-22-2025 HbA1c (Bld) [Mass fraction] 5.7 % Normal <=5.6 [facility] Comment on above: Result Comment: Norm al < 5.7 % Prediabetic 5.7 - 6.4 % Diabetic >or= 6.5 % Please note range changes. Performed By: #### L 500.4050, L501.9985, L501.9520, L500.4100, L503.0106, L100.0100, L506.1001 #### [facility] [address] [place], [address] Lipid Profileon 05-22-2025 CHOL:HDL 5.44 Normal [facility] Comment on above: Performed By: #### L 500.4050, L501.9985, L501.9520, L500.4100, L503.0106, L100.0100, L506.1001 ####[facility] [address] [place], [address] Cholesterol [Mass/Vol] 264 mg/dL High <=[address] [facility] Comment on above: Result Comment: Chol esterol level, Desirable <200 mg/dL Borderline high cholesterol 200-239 mg/dL High cholesterol >=240 mg/dL Recommendations of the NCEP Adult Treatment Panel for the following risk-cutoff thresholds for the [place] population. Performed By: #### L 500.4050, L501.9985, L501.9520, L500.4100, L503.0106, L100.0100, L506.1001 ####[facility] [address] [place], [address] Cholesterol in HDL [Mass/Vol] 49 mg/dL Normal [facility] Comment on above: Result Comment: Bren onal Cholesterol Education Program (NCEP) guidelines: <40 mg/dL: Low HDL-cholesterol (major risk factor for CHD) >= 60 mg/dL: High HDL-cholesterol (negative risk factor for CHD) HDL-cholesterol is affected by a number of factors, e.g. smoking, exercise, hormones, sex and age. Performed By: #### L 500.4050, L501.9985, L501.9520, L500.4100, L503.0106, L100.0100, L506.1001 ####[facility] [address] [place], [address] Cholesterol in LDL [Mass/Vol] 192 mg/dL Normal [facility] Comment on above: Result Comment: Bord elimkl=925-587 mg/dL Higher Jcgk=721 mg/dL or greater Friedwald Equation for LDL-C Performed By: #### L 500.4050, L501.9985, L501.9520, L500.4100, L503.0106, L100.0100, L506.1001 ####[facility] [address] [place], [address] Cholesterol in VLDL [Mass/Vol] 23 mg/dL Normal 5-40 [facility] Comment on above: Performed By: #### L 500.4050, L501.9985, L501.9520, L500.4100, L503.0106, L100.0100, L506.1001 ####[facility] [address] [place], [address] Triglyceride [Mass/Vol] 117 mg/dL Normal [facility] Comment on above: Result Comment: The drugs N-Acetylcysteine and Metamizole may falsely depress this assay. Normal range: <150 mg/dL Borderline High: 150-199 mg/dL High: 200-499 mg/dL Very High: >500 mg/dL Performed By: #### L 500.4050, L501.9985, L501.9520, L500.4100, L503.0106, L100.0100, L506.1001 ####[facility] [address] [place], [address] Thyroid Stim Hormone (TSH)on 05-22-2025 TSH 1.930 uIU/mL Normal 0.300-4.200 [facility] Comment on above: Performed By: #### L 500.4050, L501.9985, L501.9520, L500.4100, L503.0106, L100.0100, L506.1001 #### [facility] [address] [place], [place], [address] Vitamin B12on 05-22-2025 Cobalamin (Vitamin B12) [Mass/Vol] 529 pg/mL Normal 180-914 [facility] Comment on above: Performed By: #### L 500.4050, L501.9985, L501.9520, L500.4100, L503.0106, L100.0100, L506.1001 ####[facility] [address] [place], [address] Vitamin D,25 Hydroxyon 05-22 Vitamin D 25-OH 43.4 ng/mL Normal 30-100 [facility] Comment on above: Result Comment: Zita min D Status Deficiency: <20 ng/mL (50nmol/L) Insufficiency: 20-30 ng/mL (50-75 nmol/L) Sufficiency: 30-100 ng/mL (75-250 nmol/L) Toxicity: >100 ng/mL (>250 nmol/L) Performed By: #### L 500.4050, L501.9985, L501.9520, L500.4100, L503.0106, L100.0100, L506.1001 ####[facility] [address] [place], [address] MR/Macey 05-15-2025 MR/BMS.B [facility] [address] [place] [address] OFFICE VISIT Date of Service: 05/15/25 MR#: [id number] Acct: [id number] Name: JARET BATES Rep #: [id number] : 1955 Provider: Dr. 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 Accompanied by: Is patient in pain?: Yes (Back pain, abdominal pain) Pain scale (1-10): 8 Allergies adhesive tape Allergy (Verified 05/15/25 10:53) Rash sertraline (From Zoloft) Adverse Reaction (Verified 05/15/25 10:53) Unknown Medications ???Medication ???Instructions ???Recorded ???Confirmed ???Type multivitamin 1 tab PO DAILY supplement 07/09/19 05/15/25 History handicap placard #1 ea 04/21/22 05/15/25 Rx fluticasone propionate 50 1 - 2 spray intranasal BID PRN 05/15/25 Rx mcg/actuation nasal allergies, congestion #16 grams spray,suspension atorvastatin 40 mg tablet 40 mg PO QHS CHOLESTEROL #90 tabs 08/21/23 05/15/25 Rx sennosides 8.6 mg-docusate sodium 2 tab PO BID PRN constipation 10 01/23/24 05/15/25 Rx 50 mg tablet (Stool days #40 tabs Softener-Stimulant Laxative) oxycodone-acetaminophen 7.5 mg-325 1 tab PO BID pain 03/16/2405/15 History mg tablet metoclopramide HCl 10 mg tablet 10 mg PO Q8 PRN nausea/vomiting 05/15/25 History tamsulosin 0.4 mg capsule 0.4 mg PO DAILY BPH #90 caps 07/0805/15/25 Rx blood sugar diagnostic (FreeStyle #100 ea 07/18/24 05/15/25 Rx Lite Strips) blood-glucose meter (FreeStyle #1 ea 07/18/24 05/15/25 Rx Lite Meter kit) trazodone 100 mg tablet See Rx Instructions PO QHS sleep 0 08/29/24 05/15/25 Rx #90 tabs linaclotide 72 mcg capsule 72 mcg PO DAILY PRN irritable 09/1405/15/25 Rx (Linzess) colon #90 caps metformin 500 mg tablet 500 mg PO BID DIABETIC 1 month 03/0705/15/25 Rx #180 tabs ferrous sulfate 325 mg (65 mg 325 mg PO QDAY 01/31/25 05/15/25 H istory iron) tablet aspirin 81 mg tablet,delayed 81 mg PO QDAY 02/25/25 05/15/25 Hi story release (Adult Low Dose Aspirin) baclofen 5 mg tablet 5 mg PO BID 02/25/25 05/15/25 Hist ory gabapentin 100 mg capsule 100 mg PO BID pain 02/25/25 History albuterol sulfate 90 mcg/actuation 1 - 2 puff inhalation Q4H PRN 05/15/25 Rx aerosol inhaler Wheezing #8.5 grams azithromycin 250 mg tablet See Rx Instructions PO .COMPLEX #6 05/15/25 05/15/25 Rx tabs cefuroxime axetil 250 mg tablet 250 mg PO BID 7 days #14 tabs 10/0805/15/25 Rx codeine 10 mg-guaifenesin 100 mg/5 10 ml PO Q4-6H PRN cold symptoms 05/15/25 05/15/25 Rx mL oral liquid #200 mL Have you fallen in the past year?: Yes (05/08/2025) [facility] Medical History (Updated 05/15/25 @ 11:[address] Marshall Bear MD) Acute upper respiratory infection Scoliosis Thoracic spine pain Chills Right upper quadrant pain Left ankle pain Osteomyelitis Pain of left calf Foot pain Hyponatremia Vasovagal episode Pulse irregularity Bilirubinuria Contact with or exposure to other viral diseases Lumbosacral radiculopathy at L5 History of steroid therapy Smokeless tobacco use Tension headache Agent orange exposure Bilateral primary osteoarthritis of knee Wears hearing aid Cancer Alcohol use Diabetes Ambulates with cane Arthritis Prostate disease High cholesterol ( 08/21/23) Restless legs Back pain Injury of head and neck Syncope History of IBS Shortness of breath on exertion History of pain when walking History of echocardiogram History of stress test Cardiology follow-up encounter Tear of medial meniscus of right knee Fibromyalgia BPH w urinary obs/LUTS Left knee DJD Right knee DJD Fusion of spine, cervical region Chondromalacia, right knee Chondromalacia, left knee Chondromalacia of both patellae COVID-19 virus detected (11/19/20) Nonrheumatic aortic (valve) stenosis with insufficiency Opioid dependence Obesity Asthma Hyperlipemia Essential (primary) hypertension Atherosclerotic heart disease of [place] coronary artery without angina pectoris Type 2 diabetes mellitus Spondylosis of lumbosacral region without myelopathy or radiculopathy Spinal stenosis of lumbosacral region Radiculopathy of lumbosacral region Degeneration of intervertebral disc of lumbosa (more content not included)... Normal [facility] Orthopedic Visit Reporton Orthopedic Visit Report [facility] [address] [place] [address] [address] [place] [address] OFFICE VISIT Date of Service: 03/27/25 MR#: [id number] Acct: [id number] Name: JARET BATES Rep #: [id number] : 1955 Provider: TAE Proctor Age/Sex: 69/M Location[facility] Status: Signed Intake Vital Signs 02/25/25 09:16 Height 5 ft 10 in Intake Visit Reasons: CERVICAL SPINE Chief Complaint: Cervical/Lumbar MRI Review Accompanied by: Is patient in pain?: Yes Pain scale (1-10): 7 Allergies adhesive tape Allergy (Verified 03/27/25 08:56) Rash sertraline (From Zoloft) Adverse Reaction (Verified 03/27/25 08:56) Unknown Medications ???Medication ???Instructions ???Recorded ???Confirmed ???Type multivitamin 1 tab PO DAILY supplement 07/09/19 03/27/25 History handicap placard #1 ea 04/21/22 03/27/25 Rx fluticasone propionate 50 1 - 2 spray intranasal BID PRN 03/27/25 Rx mcg/actuation nasal allergies, congestion #16 grams spray,suspension atorvastatin 40 mg tablet 40 mg PO QHS CHOLESTEROL #90 tabs 08/21/23 03/27/25 Rx sennosides 8.6 mg-docusate sodium 2 tab PO BID PRN constipation 10 01/23/24 03/27/25 Rx 50 mg tablet (Stool days #40 tabs Softener-Stimulant Laxative) albuterol sulfate 90 mcg/actuation 1 - 2 puff inhalation Q4H PRN 03/27/25 History aerosol inhaler Wheezing oxycodone-acetaminophen 7.5 mg-325 1 tab PO BID pain 03/16/2403/27 History mg tablet metoclopramide HCl 10 mg tablet 10 mg PO Q8 PRN nausea/vomiting 03/27/25 History tamsulosin 0.4 mg capsule 0.4 mg PO DAILY BPH #90 caps 07/0803/27/25 Rx blood sugar diagnostic (FreeStyle #100 ea 07/18/24 03/27/25 Rx Lite Strips) blood-glucose meter (FreeStyle #1 ea 07/18/24 03/27/25 Rx Lite Meter kit) trazodone 100 mg tablet See Rx Instructions PO QHS sleep 0 08/29/24 03/27/25 Rx #90 tabs linaclotide 72 mcg capsule 72 mcg PO DAILY PRN irritable 09/1403/27/25 Rx (Linzess) colon #90 caps metformin 500 mg tablet 500 mg PO BID DIABETIC 1 month 03/0703/27/25 Rx #180 tabs ferrous sulfate 325 mg (65 mg 325 mg PO QDAY 01/31/25 03/27/25 H istory iron) tablet aspirin 81 mg tablet,delayed 81 mg PO QDAY 02/25/25 03/27/25 Hi story release (Adult Low Dose Aspirin) baclofen 5 mg tablet 5 mg PO BID 02/25/25 03/27/25 Hist ory gabapentin 100 mg capsule 100 mg PO BID pain 02/25/25 History Have you fallen in the past year?: Yes [facility] Medical History Scoliosis Thoracic spine pain Chills Right upper quadrant pain Left ankle pain Osteomyelitis Pain of left calf Foot pain Hyponatremia Vasovagal episode Pulse irregularity Bilirubinuria Contact with or exposure to other viral diseases Lumbosacral radiculopathy at L5 History of steroid therapy Smokeless tobacco use Tension headache Agent orange exposure Bilateral primary osteoarthritis of knee Wears hearing aid Cancer Alcohol use Diabetes Ambulates with cane Arthritis Prostate disease High cholesterol ( 08/21/23) Restless legs Back pain Injury of head and neck Syncope History of IBS Shortness of breath on exertion History of pain when walking History of echocardiogram History of stress test Cardiology follow-up encounter Tear of medial meniscus of right knee Fibromyalgia BPH w urinary obs/LUTS Left knee DJD Right knee DJD Fusion of spine, cervical region Chondromalacia, right knee Chondromalacia, left knee Chondromalacia of both patellae COVID-19 virus detected (11/19/20) Nonrheumatic aortic (valve) stenosis with insufficiency Opioid dependence Obesity Asthma Hyperlipemia Essential (primary) hypertension Atherosclerotic heart disease of [place] coronary artery without angina pectoris Type 2 diabetes mellitus Spondylosis of lumbosacral region without myelopathy or radiculopathy Spinal stenosis of lumbosacral region Radiculopathy of lumbosacral region Degeneration of intervertebral disc of lumbosacral region Arthropathy of cervical facet joint Degeneration of cervical disc without myelopathy Cervical spondylosis Surgical History Hx of laminectomy S/P laminectomy Status post discectomy for herniated nucleus pulposus History of lateral meniscus repair of right knee ( 2021) Hx laparoscopic cholecystectomy ( 11/2022) Hx of bilateral cataract extraction H/O cervical spine surgery (08/2020) History of herniorrhaphy History of carpal tunnel release History of back surgery History of left heart catheterization (09/09/11) H/O coronary artery bypass surgery (09/14/11) Family History B (more content not included)... Normal [facility] Cardiovascular stress test r eportOrdered By: Jon Cast on 03-24-2025 Study report [facility] [address] [place] [address] MR#: [id number] Acct: [id number] Name: JARET BATES Rep #: [id number] : 1955 69 From: Jon Cast MD Primary Care: Dr. Marshall Bear MD Stat us: REG CLI Referring Dr: Rosa Maria Cuevas PA Sex : M C Stress Test Report Pharmacologic myocardial perfusion stress test. 69-year-old man with a history of chest pain and syncope Resting EKG demonstrates sinus bradycardia with a rate of 49 bpm. Resting bloodpressure is 142/80 mmHg. 0.4 mg of regadenoson was infused per usual protocol followed by rapid intravenous saline flush injection. Continuous EKG monitoringwas performed. The maximum heart rate was 65 bpm which was 43% of max impacted heart rate the maximum workload was 1 metabolic equivalent. At rest there were no ST or T wave changes noted to suggest ischemia and at peak infusion nonspecific ST changes were noted which did not meet the criteria for ischemia. No clinical angina is noted. The final blood pressure was 126/72 mmHg. Myocardial perfusion protocol. 12.0 mCi of technetium 99m sestamibi was injected at rest. 0.4 mg of regadenoson was infused per usual protocol. At peak infusion 35.6 mCi of technetium 99m sestamibi was injected stress images were obtained stress and rest images were reconstructed and compared in the short axis vertical long and horizontal long axis. Gated images were also obtained. Perfusion SPECT analysis: Review of the stress images demonstrate normal uptake of tracer noted in all areas of the myocardium. The resting images similar demonstrated normal uptake of tracer noted in all areas of the myocardium. No areas of reversibility are noted to suggest ischemia and no previous infarct is noted. Gated SPECT analysis: The gated ejection fraction is 56%. Conclusion: Normal pharmacologic myocardial perfusion stress test. Preserved ejection fraction. 03/24/251899 Date _ Jon Cast MD CC: Dr. Marshall Bear MD; TAE Cohen ~ Date Dictated: 03/24/251858 Date Transcribed: 03/24/251858 Human Resources Administrator: [place] Signed [facility] Work Phone: Echocardiogram study reportO rdered By: Jon Cast on 03-24-2025 Study report [facility] [address] [place] [address] Echo Complete 03/21/25857 MR#: [id number] Acct: [id number] Name: JARET BATES Rep #:[id number] : 1955 69 From: Jon Mcfarlane Attending Dr: TAE Cohen Status: REG CLI Ordering Dr: Rosa Maria Cuevas Date: 03/21/25 Location: [facility] Sex: M C Admitted: Reason For Study Reason For Study: Aortic Stenosis Procedure This was a 2D Doppler, Color Flow transthoracic echocardiogram. Exam performed in department. Left Ventricle Normal LV size. The left ventricular ejection fraction is 60 %. Stage 1 diastolic dysfunction. No regional wall motion abnormalities noted. Right Ventricle Normal RV size. Normal systolic function. Atria Normal left atrium. Normal right atrium. Mitral Valve Normal mitral valve. Mild (1+) eccentric mitral valve insufficiency. Tricuspid Valve Normal tricuspid valve. Mild (1+) tricuspid valve insufficiency. Pulmonary artery systolic pressure is 30 mmHg. Aortic Valve Trisinus/trileaflet aortic valve. Moderate focal aortic valve calcification. Peak aortic valve gradient 50 mmHg. Mean aortic valve gradient 30 mmHg. Moderate aortic stenosis. Mild (1+) eccentric aortic valve insufficiency. Great Vessels Normal aortic root. The pulmonary artery is normal size. Inferior vena cava collapse with respiration. Pericardium/Pleural No pericardial effusion. MMode/2D Measurements & Calculations LVIDd: 5.3 cm IVSd: 1.3 cm LVOT diam: 2.0 cm LVIDs: 3.5 cm LVPWd: 1.0 cm LVOT area: 3.3 cm2 RVDd: 4.1 cm FS: 32.6 % __ Ao root diam: 3.8 cm LAV(MOD-bp): 57.7 ml LVAd ap4: 32.0 cm2 LAV(MOD-bp) Indexed: 28.2 ml/m2 LVLd ap4: 8.3 cm LAV(MOD-sp2): 57.7 ml EDV(MOD-sp4): 100.3 ml LAV(MOD-sp4): 58.1 ml EDV(sp4-el): 105.4 ml LVAs ap4: 19.6 cm2 LVLs ap4: 7.5 cm ESV(MOD-sp4): 43.2 ml ESV(sp4-el): 43.5 ml EF(MOD-sp4): 57.0 % EF(sp4-el): 58.7 % SV(MOD-sp4): 57.2 ml SV(MOD-sp2): 41.8 ml LVAd ap2: 29.1 cm2 LVLd ap2: 8.8 cm SI(MOD-sp4): 27.9 ml/m2 SI(MOD-sp2): 20.4 ml/m2 EDV(MOD-sp2): 81.5 ml EDV(sp2-el): 81.7 ml LVAs ap2: 18.7 cm2 LVLs ap2: 7.7 cm ESV(MOD-sp2): 39.7 ml ESV(sp2-el): 38.5 ml EF(MOD-sp2): 51.3 % __ SV(sp4-el): 61.9 ml LA A4 area: 20.7 cm2 LA dimension(2D): 3.9 cm __ TAPSE: 1.9 cm RA A4 area: 22.4 cm2 Doppler Measurements & Calculations MV E max gabby: 75.3 cm/sec Lat Peak E' Gabby: 10.0 cm/sec Med Peak E' Gabby: 7.3 cm/sec MV A max gabby: 94.7 cm/sec E/E' lat: 7.5 E/E' med: 10.4 MV E/A: 0.80 __ Ao V2 max: 354.0 cm/sec LV V1 max: 106.0 cm/sec SV(LVOT): 96.5 ml Ao max P.2 mmHg LV V1 max P.5 mmHg Ao V2 mean: 261.9 cm/sec LV V1 mean P.6 mmHg Ao mean P.0 mmHg LV V1 mean: 76.6 cm/sec Ao V2 VTI: 95.4 cm LV V1 VTI: 29.2 cm AV (velocity ratio): 0.31 PHUC(I,D): 1.0 cm2 PHUC(V,D): 0.99 cm2 __ PA V2 max: 91.2 cm/sec TR max gabby: 262.0 cm/sec TR max P.5 mmHg ECHO/Echo Complete Interpretation Summary Normal LV size. The left ventricular ejection fraction is 60 %. Stage 1 diastolic dysfunction. Moderate focal aortic valve calcification. Mean aortic valve gradient 30 mmHg. Mild (1+) eccentric mitral valve insufficiency. Pulmonary artery systolic pressure is 30 mmHg. Moderate aortic stenosis. Compared to the previous the aortic valve stenosis is worse. Ordering Physician: Rosa Maria Cuevas Referring Physician: Marsahll Bear Performed By: Archana Enriquez RDCS 03/24/25 1340 Date _ Jon Cast MD CC: Dr. Marshall Bear MD; TAE Cohen ~ Date Dictated: 03/21/25857 Date Transcribed: 03/24/25 134 Human Resources Administrator: Signed [facility] Work Phone: Stress Reporton 03-24-2025 Stress Report [facility] Cardiovascular Services [address] [place] [address] MR#: [id number] Acct: [id number] Name: JARET BATES Rep #: [id number] : 1955 69 From: Jon Cast MD Primary Care: Dr. Marshall Bear MD Status: REG CLI Referring Dr: Rosa Maria Cuevas Sex: M C Stress Test Report Pharmacologic myocardial perfusion stress test. 69-year-old man with a history of chest pain and syncope Resting EKG demonstrates sinus bradycardia with a rate of 49 bpm. Resting blood pressure is 142/80 mmHg. 0.4 mg of regadenoson was infused per usual protocol followed by rapid intravenous saline flush injection. Continuous EKG monitoring was performed. The maximum heart rate was 65 bpm which was 43% of max impacted heart rate the maximum workload was 1 metabolic equivalent. At rest there were no ST or T wave changes noted to suggest ischemia and at peak infusion nonspecific ST changes were noted which did not meet the criteria for ischemia. No clinical angina is noted. The final blood pressure was 126/72 mmHg. Myocardial perfusion protocol. 12.0 mCi of technetium 99m sestamibi was injected at rest. 0.4 mg of regadenoson was infused per usual protocol. At peak infusion 35.6 mCi of technetium 99m sestamibi was injected stress images were obtained stress and rest images were reconstructed and compared in the short axis vertical long and horizontal long axis. Gated images were also obtained. Perfusion SPECT analysis: Review of the stress images demonstrate normal uptake of tracer noted in all areas of the myocardium. The resting images similar demonstrated normal uptake of tracer noted in all areas of the myocardium. No areas of reversibility are noted to suggest ischemia and no previous infarct is noted. Gated SPECT analysis: The gated ejection fraction is 56%. Conclusion: Normal pharmacologic myocardial perfusion stress test. Preserved ejection fraction. 03/24/25 190 Date Jon Cast MD CC: Dr. Marshall Bear MD; TAE Cohen Date Dictated: 03/24/251858 Date Transcribed: 03/24/251858 Human Resources Administrator: [place] Signed Normal [facility] Echo Completeon 03-21-2025 Echo Complete [facility] Cardi[facility] Services [address] [place] [address] Echo Complete 03/21/25 0858 MR#: [id number] Acct: [id number] Name: JARET BATES Rep #: [id number] : 1955 69 From: Jon Cast MD Attending Dr: TAE Cohen Status: REG CLI Ordering Dr: Rosa Maria Cuevas Date: 04/07 Location: [facility] Sex: M C Admitted: Reason For Study Reason For Study: Aortic Stenosis Procedure This was a 2D Doppler, Color Flow transthoracic echocardiogram. Exam performed in department. Left Ventricle Normal LV size. The left ventricular ejection fraction is 60 %. Stage 1 diastolic dysfunction. No regional wall motion abnormalities noted. Right Ventricle Normal RV size. Normal systolic function. Atria Normal left atrium. Normal right atrium. Mitral Valve Normal mitral valve. Mild (1+) eccentric mitral valve insufficiency. Tricuspid Valve Normal tricuspid valve. Mild (1+) tricuspid valve insufficiency. Pulmonary artery systolic pressure is 30 mmHg. Aortic Valve Trisinus/trileaflet aortic valve. Moderate focal aortic valve calcification. Peak aortic valve gradient 50 mmHg. Mean aortic valve gradient 30 mmHg. Moderate aortic stenosis. Mild (1+) eccentric aortic valve insufficiency. Great Vessels Normal aortic root. The pulmonary artery is normal size. Inferior vena cava collapse with respiration. Pericardium/Pleural No pericardial effusion. MMode/2D Measurements Calculations LVIDd: 5.3 cm IVSd: 1.3 cm LVOT diam: 2.0 cm LVIDs: 3.5 cm LVPWd: 1.0 cm LVOT area: 3.3 cm2 RVDd: 4.1 cm FS: 32.6 % Ao root diam: 3.8 cm LAV(MOD-bp): 57.7 ml LVAd ap4: 32.0 cm2 LAV(MOD-bp) Indexed: 28.2 ml/m2 LVLd ap4: 8.3 cm LAV(MOD-sp2): 57.7 ml EDV(MOD-sp4): 100.3 ml LAV(MOD-sp4): 58.1 ml EDV(sp4-el): 105.4 ml LVAs ap4: 19.6 cm2 LVLs ap4: 7.5 cm ESV(MOD-sp4): 43.2 ml ESV(sp4-el): 43.5 ml EF(MOD-sp4): 57.0 % EF(sp4-el): 58.7 % SV(MOD-sp4): 57.2 ml SV(MOD-sp2): 41.8 ml LVAd ap2: 29.1 cm2 LVLd ap2: 8.8 cm SI(MOD-sp4): 27.9 ml/m2 SI(MOD-sp2): 20.4 ml/m2 EDV(MOD-sp2): 81.5 ml EDV(sp2-el): 81.7 ml LVAs ap2: 18.7 cm2 LVLs ap2: 7.7 cm ESV(MOD-sp2): 39.7 ml ESV(sp2-el): 38.5 ml EF(MOD-sp2): 51.3 % SV(sp4-el): 61.9 ml LA A4 area: 20.7 cm2 LA dimension(2D): 3.9 cm TAPSE: 1.9 cm RA A4 area: 22.4 cm2 Doppler Measurements Calculations MV E max gabby: 75.3 cm/sec Lat Peak E' Gabby: 10.0 cm/sec Med Peak E' Gabby: 7.3 cm/sec MV A max gabby: 94.7 cm/sec E/E' lat: 7.5 E/E' med: 10.4 MV E/A: 0.80 Ao V2 max: 354.0 cm/sec LV V1 max: 106.0 cm/sec SV(LVOT): 96.5 ml Ao max P.2 mmHg LV V1 max P.5 mmHg Ao V2 mean: 261.9 cm/sec LV V1 mean P.6 mmHg Ao mean P.0 mmHg LV V1 mean: 76.6 cm/sec Ao V2 VTI: 95.4 cm LV V1 VTI: 29.2 cm AV (velocity ratio): 0.31 PHUC(I,D): 1.0 cm2 PHUC(V,D): 0.99 cm2 PA V2 max: 91.2 cm/sec TR max gabby: 262.0 cm/sec TR max P.5 mmHg ECHO/Echo Complete Interpretation Summary Normal LV size. The left ventricular ejection fraction is 60 %. Stage 1 diastolic dysfunction. Moderate focal aortic valve calcification. Mean aortic valve gradient 30 mmHg. Mild (1+) eccentric mitral valve insufficiency. Pulmonary artery systolic pressure is 30 mmHg. Moderate aortic stenosis. Compared to the previous the aortic valve stenosis is worse. Ordering Physician: Rosa Maria Cuevas Referring Physician: Marshall Bear Performed By: Archana Enriquez, RDROOPA 03/24/25 1340 Date Jon Cast MD CC: Dr. Marshall Bear MD; TAE Cohen Date Dictated: 03/21/25857 Date Transcribed: 03/24/251339 Human Resources Administrator: Signed Normal [facility] [id number] 03-12-2025 [facility] Misc. COMMENT Normal . [facility] Comment on above: Order Comment: [id number] RT Result Comment: Test Ordered: [id number] Amphetamines Screen, Urine Note: ng/mL UI See Final Results Reference Range: Gqfkol=216 Amphetamine test includes Amphetamine and Methamphetamine. Amphetamines Negative UI Reference Range: Hhiqyt=461 Amphetamine test includes Amphetamine and Methamphetamine. Barbiturates Negative ng/mL UI Reference Range: Ltdwuk=197 Benzodiazepines Negative ng/mL UI Reference Range: Irzamc=671 Cocaine (Metab.), Urine Negative ng/mL UI Reference Range: Xizdqk=203 Opiates Note: ng/mL UI See Final Results Reference Range: Iicbdn=715 Opiate test includes Codeine, Morphine, Hydromorphone, Hydrocodone. Opiates Negative UI Reference Range: Xcdpru=395 Opiate test includes Codeine, Morphine, Hydromorphone, Hydrocodone. 6-Acetylmorphine, Urine Negative ng/mL UI Reference Range: Cutoff=10 Oxycodone/Oxymorphone, Urine Note: ng/mL UI See Final Results Reference Range: Yvmnek=185 Test includes Oxycodone and Oxymorphone Oxycodone/Oxymorph Positive [A ] UI Reference Range: Stfdnb=064 Test includes Oxycodone and Oxymorphone Oxycodone Positive [A ] UI Reference Range: . Oxycodone Conf, MS, UR 2594 ng/mL UI Reference Range: Hekxfk=273 Oxymorphone Positive [A ] UI Reference Range: . Oxymorphone Conf, MS, UR 1096 ng/mL UI Reference Range: Fmqkmy=555 PCP, Urine Negative ng/mL UI Reference Range: Cutoff=25 Methadone Screen, Urine Negative ng/mL UI Reference Range: Yrqkge=891 Propoxyphene, Urine Negative ng/mL UI Reference Range: Gmvzin=468 Fentanyl, Urine Negative ng/mL UI Reference Range: Cutoff=2.0 Test includes Fentanyl and Norfentanyl This test was developed and its performance characteristics determined by [facility]. It has not been cleared or approved by the Food and Drug Administration. Tramadol Negative ng/mL UI Reference Range: Jdunut=922 Buprenorphine, Urine Negative ng/mL UI Reference Range: Cutoff=10 Creatinine, Urine 211.5 mg/dL UI Reference Range: 20.0-300.0 pH, Urine 5.0 UI Reference Range: 4.5-8.9 Performed at: [address] [id number] Hydro Plant Operator: Ray Melendrez PhD, Phone: [phone] Performed at: [address] [id number] Hydro Plant Operator: Jerald Wakefield PhD, Phone: [phone] Performed By: #### L 505.5000, L3410.9992 ####[facility] [address] [facility] [place], [address] Magnetic resonance imaging r eportOrdered By: Miles Tam on 03-08-2025 Study report [facility] Imaging Services [address] [place] [address] Spine Lumbar W/WO Contrast MR#: [id number] Acct: [id number] Name: JARET BATES Rep #: [id number] : 1955 M 69 From: Jayden Tam MD PCP: Dr. Marshall Bear MD Status: REG CLI Study:Spine Lumbar W/WO Contrast Date of Exa m: 03/05/25 Exam# [id number] Ordering Dr: Tarik Fernandez MD PROCEDURE: SPINE LUMBAR W/WO CONTRAST 03/05/2025 REASON FOR EXAM: OSTEOMYELITIS OF LUMBAR SPINE TECHNIQUE: SPINE LUMBAR W/WO CONTRAST Multiplanar and multisequence images were obtained without and with intravenous gadolinium-based contrast administration. CONTRAST: Analia scan VOLUME: 17 mL COMPARISON: 1723 FINDINGS: Posterior lumbar interbody fusion at L4-5 with retrolisthesis of L3 upon L4. Nocurrent findings that would suggest discitis or osteomyelitis on T1 or inversion recovery images. Modic changes are seen at L2-3. The conus is normal. On axial images, there is no paravertebral fluid collection. At L1-2, there is minimal inferior foraminal narrowing on the left, unchanged. At L2-3, postsurgical changes dorsally without recurrent central spinal stenosis. Moderate narrowing of the right L2 neural foramen is similar to the prior examination. At L3-4, disc space narrowing and concentric bulge with a mild degree of right lateral recess stenosis. Posterior decompression. Both findings present previously. Moderate to severe right L3 foraminal narrowing was also present on the prior study. Correlate for right L3 radiculopathy. Interbody fusion at L4-5 without recurrent central stenosis. Moderate right L4 foraminal narrowing is similar to the prior study. At L5-S1, there is moderate facet degeneration. There is no foraminal nerve root impingement. On postcontrast images, there is no abnormal lumbosacral nerve root enhancement. There are no enhancing fluid collections. MRI/Spine Lumbar W/WO Contrast IMPRESSION: Overall similar findings to the prior study Reading [facility] CC: Dr. Marshall Bear MD; Dr. Tarik Wilkinson MD ~ Human Resources Administrator: Signed [facility] Magnetic resonance imaging r eportOrdered By: Edyta Tran on 03-08-2025 Study report [facility] Imaging Services [address] [place], [place] [address] Spine Cervical (Routine) MR#: [id number] Acct: [id number] Name: PAULOJARET SANGITA Rep #: [id number] : 1955 M 69 From: Didier Tran MD PCP: Dr. Marshall Bear MD Status: REG CLI Study:Spine Cervical (Routine) Date of Exam: 03/05/25 Exam# [id number] Ordering Dr: Shashank Bradshaw MD PROCEDURE: SPINE CERVICAL (ROUTINE) 03/05/2025 REASON FOR EXAM: CERVICAL RADICULOPATHY TECHNIQUE: SPINE CERVICAL (ROUTINE) Multiplanar and multisequence images were obtained without IV contrast administration. COMPARISON: Cervical spine x-ray September 10 2024. FINDINGS: Vertebrae: Cervical vertebral body heights are preserved. Bone marrow signal is unremarkable. Alignment: Normal. No spondylolisthesis. Spinal Cord: Cervical spinal cord is of normal size and signal intensities. Structures at the foramen magnum are unremarkable. C2-3: Facet joint arthropathy. No foraminal or canal stenosis. C3-4: Disc osteophyte complex measures 2 mm. No significant foraminal or canal stenosis. C4-5: Disc osteophyte complex. Facet joint arthropathy. No foramina stenosis. Mild canal stenosis. C5-6: Disc osteophyte complex. Uncovertebral hypertrophy. Facet joint arthropathy. Severe left foraminal stenosis. Mild canal stenosis. C6-7: Status post ACDF. Facet joint arthropathy. Severe left and mild right foramina stenosis. Mild canal stenosis. C7-T1: No significant foraminal or canal stenosis. MRI/Spine Cervical (Routine) IMPRESSION: Status post ACDF C6-C7 without significant foraminal or canal stenosis. Reading Location: [facility] CC: Dr. Bjorn Bradshaw MD; Dr. Marshall Bear MD ~ Human Resources Administrator: Signed [facility] Amphetamine detection with 1 000 ng/mL as cutoffOrdered By: Juan Carlos Gagnon on 03-06-2025 Amphetamines Screen method >1000 ng/mL Ql (U) Negative < 200 ng/mL [facility] No Panel InformationOrdered By: Juan Carlos Gagnon on 03-06-2025 Urine Buprenorphine Qualitative Negative < 200 ng/mL [facility] Urine Oxycodone Screen Positive < 100 ng/mL [facility] Comment on above: If confirmation test ing is needed, a separate order will be required to send out testing to the reference laboratory. Quantitative urine opiates m easurementOrdered By: Juan Carlos Gagnon on 03-06-2025 Opiates Ql (U) Negative < 300 ng/mL [facility] Screening urine fentanyl gordo surementOrdered By: Juan Carlos Gagnon on 03-06-2025 fentaNYL Screen Ql (U) Negative [facility] Urine Drug Screen (VISTA)on 03-06-2025 AMPHETAMINES Negative Normal <1000 ng/mL [facility] Comment on above: Order Comment: MEDTO XMEDTOX Performed By: #### L 505.5000, L3410.9992 ####[facility] [address] [place] [address] BARBITIURATES Negative Normal < 200 ng/mL [facility] Comment on above: Order Comment: MEDTO XMEDTOX Performed By: #### L 505.5000, L3410.9992 ####[facility] [address] [place] [address] BENZODIAZIPINE Negative Normal < 200 ng/mL [facility] Comment on above: Order Comment: MEDTO XMEDTOX Performed By: #### L 505.5000, L3410.9992 ####[facility] [address] [facility] [address] BUP Ur Drug Scr Negative Normal < 200 ng/mL [facility] Comment on above: Order Comment: MEDTO XMEDTOX Performed By: #### L 505.5000, L3410.9992 ####[facility] [address] [facility] [address] COCAINE Negative Normal < 300 ng/mL [facility] Comment on above: Order Comment: MEDTO XMEDTOX Performed By: #### L 505.5000, L3410.9992 ####[facility] [address] [facility] [address] Fentanyl Negative Normal [facility] Comment on above: Order Comment: MEDTO XMEDTOX Performed By: #### L 505.5000, L3410.9992 ####[facility] [address] [place], [address] METHADONE Negative Normal < 300 ng/mL [facility] Comment on above: Order Comment: MEDTO XMEDTOX Performed By: #### L 505.5000, L3410.9992 ####[facility] [address] [place], [address] OPIATES Negative Normal < 300 ng/mL [facility] Comment on above: Order Comment: MEDTO XMEDTOX Performed By: #### L 505.5000, L3410.9992 ####[facility] [address] [place] [id number] OXYCODONE Positive Normal < 100 ng/mL [facility] Comment on above: Order Comment: MEDTO XMEDTOX Result Comment: If c onfirmation testing is needed, a separate order will be required to send out testing to the reference laboratory. Performed By: #### L 505.5000, L3410.9992 ####[facility] [address] [place], [address] PCP Negative Normal < 25 ng/mL [facility] Comment on above: Order Comment: MEDTO XMEDTOX Performed By: #### L 505.5000, L3410.9992 ####[facility] [address] [place] [address] THC Positive Normal < 50 ng/mL [facility] Comment on above: Order Comment: MEDTO XMEDTOX Result Comment: If c onfirmation testing is needed, a separate order will be required to send out testing to the reference laboratory. Performed By: #### L 505.5000, L3410.9992 ####[facility] [address] [place], [address] Urine benzodiazepine levelOr dered By: Juan Carlos Gagnon on 03-06-2025 Benzodiazepines Ql (U) Negative < 200 ng/mL [facility] Urine cocaine levelOrdered B y: Juan Carlos Beckeri on 03-06-2025 Cocaine Ql (U) Negative < 300 ng/mL [facility] Urine ivoeo-8-tkmoeolmszwbod abinol (THC) measurementOrdered By: Juan Carlos Gagnon on 03-06-2025 Cannabinoids Screen Ql (U) Positive < 50 ng/mL [facility] Comment on above: If confirmation test ing is needed, a separate order will be required to send out testing to the reference laboratory. Urine phencyclidine (PCP) de tectionOrdered By: Juan Carlos Gagnon on 03-06-2025 Phencyclidine Ql (U) Negative < 25 ng/mL [facility] Spine Cervical (Routine)on 0 03-05-2025 Spine Cervical (Routine) [facility] Imaging Services [address] [place] [id number] Spine Cervical (Routine) MR#: [id number] Acct: [id number] Name: JARET BATES Rep #: [id number] : 1955 M 69 From: Edyta Tran MD PCP: Dr. Marshall Bear MD Status: REG CLI Study: Spine Cervical (Routine) Date of Exam: Exam# [id number] Ordering Dr: Bjorn Bradshaw MD PROCEDURE: SPINE CERVICAL (ROUTINE) 03/05/2025 REASON FOR EXAM: CERVICAL RADICULOPATHY TECHNIQUE: SPINE CERVICAL (ROUTINE) Multiplanar and multisequence images were obtained without IV contrast administration. COMPARISON: Cervical spine x-ray September 10 2024. FINDINGS: Vertebrae: Cervical vertebral body heights are preserved. Bone marrow signal is unremarkable. Alignment: Normal. No spondylolisthesis. Spinal Cord: Cervical spinal cord is of normal size and signal intensities. Structures at the foramen magnum are unremarkable. C2-3: Facet joint arthropathy. No foraminal or canal stenosis. C3-4: Disc osteophyte complex measures 2 mm. No significant foraminal or canal stenosis. C4-5: Disc osteophyte complex. Facet joint arthropathy. No foramina stenosis. Mild canal stenosis. C5-6: Disc osteophyte complex. Uncovertebral hypertrophy. Facet joint arthropathy. Severe left foraminal stenosis. Mild canal stenosis. C6-7: Status post ACDF. Facet joint arthropathy. Severe left and mild right foramina stenosis. Mild canal stenosis. C7-T1: No significant foraminal or canal stenosis. MRI/Spine Cervical (Routine) IMPRESSION: Status post ACDF C6-C7 without significant foraminal or canal stenosis. Reading Location: [facility] CC: Dr. Bjorn Bradshaw MD; Dr. Marshall Bear MD Human Resources Administrator: Signed Normal [facility] Spine Lumbar W/WO Contraston 03-05-2025 Spine Lumbar W/WO Contrast [facility] Imaging Services [address] [place] [id number] Spine Lumbar W/WO Contrast MR#: [id number] Acct: [id number] Name: JARET BATES Rep #: [id number] : 1955 M 69 From: Miles Tam MD PCP: Dr. Marshall Bear MD Status: REG CLI Study: Spine Lumbar W/WO Contrast Date of Exam: 02/12 11/05 Exam# [id number] Ordering Dr: Tarik Wilkinson MD PROCEDURE: SPINE LUMBAR W/WO CONTRAST 03/05/2025 REASON FOR EXAM: OSTEOMYELITIS OF LUMBAR SPINE TECHNIQUE: SPINE LUMBAR W/WO CONTRAST Multiplanar and multisequence images were obtained without and with intravenous gadolinium-based contrast administration. CONTRAST: Analia scan VOLUME: 17 mL COMPARISON: [id number] FINDINGS: Posterior lumbar interbody fusion at L4-5 with retrolisthesis of L3 upon L4. No current findings that would suggest discitis or osteomyelitis on T1 or inversion recovery images. Modic changes are seen at L2-3. The conus is normal. On axial images, there is no paravertebral fluid collection. At L1-2, there is minimal inferior foraminal narrowing on the left, unchanged. At L2-3, postsurgical changes dorsally without recurrent central spinal stenosis. Moderate narrowing of the right L2 neural foramen is similar to the prior examination. At L3-4, disc space narrowing and concentric bulge with a mild degree of right lateral recess stenosis. Posterior decompression. Both findings present previously. Moderate to severe right L3 foraminal narrowing was also present on the prior study. Correlate for right L3 radiculopathy. Interbody fusion at L4-5 without recurrent central stenosis. Moderate right L4 foraminal narrowing is similar to the prior study. At L5-S1, there is moderate facet degeneration. There is no foraminal nerve root impingement. On postcontrast images, there is no abnormal lumbosacral nerve root enhancement. There are no enhancing fluid collections. MRI/Spine Lumbar W/WO Contrast IMPRESSION: Overall similar findings to the prior study Reading [facility] CC: Dr. Marshall Bear MD; Dr. Tarik Wilkinson MD Human Resources Administrator: Signed Normal [facility] Cardiology Visit Reporton Cardiology Visit Report [facility] [place] [id number] [facility] [place] [address] OFFICE VISIT Date of Service: 02/25/25 MR#: [id number] Acct: [id number] Name: JARET BATES Rep #: [id number] : 1955 Provider: TAE Reyes Age/Sex: 69/M Location[facility] Status: Signed HPI HPI History of Present Illness Details: Jaret Bates is a 69-year-old man who presents today for a cardiovascular outpatient follow-up. He is a gentleman with a history of coronary artery disease status post coronary artery bypass graft surgery in 2012. He had a left internal mammary artery to the left anterior descending artery, saphenous vein graft to circumflex artery and saphenous vein graft to ramus intermedius. He also has a history of hyperlipidemia. Pharmacologic stress test in 2022 was negative for ischemia. Echocardiogram in 2023 demonstrated mild aortic stenosis with a preserved ejection fraction. Pt notes that he has positional dizziness. He did have a syncopal event 3 weeks ago. He felt nauseated, hot, then he stood up and passed out. This was witnessed. He out 20-30 seconds. He did call his PCP for this. It was felt to be a vasovagal reaction. He does sometimes have chest pain but it is difficult for him to tell if it starts in his back. He is having neuropathy and ambulates with a cane. EKG today demonstrates sinus ramandeep with a HR of 54. 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 Accompanied by: Is patient in pain?: No Allergies adhesive tape Allergy (Verified 02/25/25 09:23) Rash sertraline (From Zoloft) Adverse Reaction (Verified 02/25/25 09:23) Unknown Medications ???Medication ???Instructions ???Recorded ???Confirmed ???Type multivitamin 1 tab PO DAILY supplement 07/09/19 02/25/25 History handicap placard #1 ea 04/21/22 01/27/25 Rx fluticasone propionate 50 1 - 2 spray intranasal BID PRN 02/25/25 Rx mcg/actuation nasal allergies, congestion #16 grams spray,suspension atorvastatin 40 mg tablet 40 mg PO QHS CHOLESTEROL #90 tabs 08/21/23 02/25/25 Rx sennosides 8.6 mg-docusate sodium 2 tab PO BID PRN constipation 10 01/23/24 02/25/25 Rx 50 mg tablet (Stool days #40 tabs Softener-Stimulant Laxative) albuterol sulfate 90 mcg/actuation 1 - 2 puff inhalation Q4H PRN 02/25/25 History aerosol inhaler Wheezing oxycodone-acetaminophen 7.5 mg-325 1 tab PO BID pain 03/16/2402/25 History mg tablet metoclopramide HCl 10 mg tablet 10 mg PO Q8 PRN nausea/vomiting 02/25/25 History tamsulosin 0.4 mg capsule 0.4 mg PO DAILY BPH #90 caps 07/0802/25/25 Rx blood sugar diagnostic (FreeStyle #100 ea 07/18/24 01/27/25 Rx Lite Strips) blood-glucose meter (FreeStyle #1 ea 07/18/24 01/27/25 Rx Lite Meter kit) trazodone 100 mg tablet See Rx Instructions PO QHS sleep 0 08/29/24 02/25/25 Rx #90 tabs linaclotide 72 mcg capsule 72 mcg PO DAILY PRN irritable 09/1402/25/25 Rx (Linzess) colon #90 caps doxycycline monohydrate 100 mg 100 mg PO BID 10/04/24 02/25/25 Hi story capsule metformin 500 mg tablet 500 mg PO BID DIABETIC 1 month 03/0702/25/25 Rx #180 tabs ferrous sulfate 325 mg (65 mg 325 mg PO QDAY 01/31/25 02/25/25 H istory iron) tablet aspirin 81 mg tablet,delayed 81 mg PO QDAY 02/25/25 02/25/25 Hi story release (Adult Low Dose Aspirin) baclofen 5 mg tablet 5 mg PO BID 02/25/25 02/25/25 Hist ory gabapentin 100 mg capsule 100 mg PO BID pain 02/25/25 History Ejection fraction %: 60 Have you fallen in the past year?: Yes (Passed out) [facility] Medical History (Updated 02/25/25 @ 09:54 by Rosa Maria Cuevas PA, PA) Scoliosis Thoracic spine pain Chills Right upper quadrant pain Left ankle pain Osteomyelitis Pain of left calf Foot pain Hyponatremia Vasovagal episode Pulse irregularity Bilirubinuria Contact with or exposure to other viral diseases Lumbosacral radiculopathy at L5 History of steroid therapy Smokeless tobacco use Tension headache Agent orange exposure Bilateral primary osteoarthritis of knee Wears hearing aid Cancer Alcohol use Diabetes Ambulates with cane Arthritis Prostate disease High cholesterol ( 08/21/23) Restless legs Back pain Injury of head and neck Syncope History of IBS Shortness of breath on exertion History of pain when walking History of echocardiogram History of stress test Cardiology follow-up encounter Tear of medial meniscus of right knee Fib (more content not included)... Normal [facility] L/S Spine Min 4 Viewson 01-13 0-2025 L/S Spine Min 4 Views [facility] Imaging Services [address] [place], [place] [id number] (050) L/S Spine Min 4 Views MR#: [id number] Acct: [id number] Name: JARET BATES Rep #: [id number] : 1955 M 69 From: Vipul Baltazar MD PCP: Dr. Marshall Bear MD Status: DEP AMB Study: L/S Spine Min 4 Views Date of Exam: 01/31/25 Exam# [id number] Ordering Dr: Imelda Andrade EXAM: XR Lumbosacral Spine Complete with Flexion/Extension, 3 views CLINICAL INDICATION: S/P FUSION TECHNIQUE: Lateral, frontal, and lateral flexion/extension views of the lumbar spine and sacrum. COMPARISON: No relevant prior studies available. FINDINGS: VERTEBRAE: Mild vertebral height loss of L3 and L4 vertebral bodies. Multilevel endplate degenerative disc disease of L2 the L5. Normal alignment. No acute fracture or significant dynamic instability. SACRUM/COCCYX: Unremarkable as visualized. No acute fracture. DISC SPACES: Status post posterior fusion of L4-5 with disc spaces. Intact hardware. SOFT TISSUES: Unremarkable. RAD/L/S Spine Min 4 Views IMPRESSION: 1. No acute fracture or significant dynamic instability. 2. Postoperative changes as above. Reading Location: [facility] CC: TAE Proctor; Dr. Marshall Bear MD Human Resources Administrator: Signed Normal [facility] Orthopedic Visit Reporton Orthopedic Visit Report [facility] [address] [place] [address] OFFICE VISIT Date of Service: 01/31/25 MR#: [id number] Acct: [id number] Name: JARET BATES Rep #: [id number] : 1955 Provider: Dr. Bjorn Bradshaw MD Age/Sex: 69/M Location[facility] Status: Signed Intake Vital Signs 03/28/24 13:36 04/18/24 09:11 05/15/24 15:01 01/27/25 10:47 Height 5 ft 10 in 5 ft 10 in 5 ft 10 in 5 ft 10 in Intake Visit Reasons: LUMBAR SPINE Chief Complaint: lumbar spine Is patient in pain?: Yes (lumbar spine) Pain scale (1-10): 5 Allergies adhesive tape Allergy (Verified 01/31/25 08:05) Rash sertraline (From Zoloft) Adverse Reaction (Verified 01/31/25 08:05) Unknown Medications ???Medication ???Instructions ???Recorded ???Confirmed ???Type multivitamin 1 tab PO DAILY supplement 07/09/19 01/31/25 History handicap placard #1 ea 04/21/22 01/27/25 Rx fluticasone propionate 50 1 - 2 spray intranasal BID PRN 01/31/25 Rx mcg/actuation nasal allergies, congestion #16 grams spray,suspension atorvastatin 40 mg tablet 40 mg PO QHS CHOLESTEROL #90 tabs 08/21/23 01/31/25 Rx sennosides 8.6 mg-docusate sodium 2 tab PO BID PRN constipation 10 01/23/24 01/31/25 Rx 50 mg tablet (Stool days #40 tabs Softener-Stimulant Laxative) albuterol sulfate 90 mcg/actuation 1 - 2 puff inhalation Q4H PRN 01/31/25 History aerosol inhaler Wheezing oxycodone-acetaminophen 7.5 mg-325 1 tab PO BID pain 03/16/2401/31 History mg tablet gabapentin 100 mg capsule 600 mg PO TID pain 04/18/24 History metoclopramide HCl 10 mg tablet 10 mg PO Q8 PRN nausea/vomiting 01/31/25 History tamsulosin 0.4 mg capsule 0.4 mg PO DAILY BPH #90 caps 07/0801/31/25 Rx baclofen 5 mg tablet 5 mg PO BID PRN 07/18/24 01/31/25 History blood sugar diagnostic (FreeStyle #100 ea 07/18/24 01/27/25 Rx Lite Strips) blood-glucose meter (FreeStyle #1 ea 07/18/24 01/27/25 Rx Lite Meter kit) trazodone 100 mg tablet See Rx Instructions PO QHS sleep 0 08/29/24 01/31/25 Rx #90 tabs linaclotide 72 mcg capsule 72 mcg PO DAILY PRN irritable 09/1401/31/25 Rx (Linzess) colon #90 caps doxycycline monohydrate 100 mg 100 mg PO BID 10/04/24 01/31/25 Hi story capsule metformin 500 mg tablet 500 mg PO BID DIABETIC 1 month 03/0701/31/25 Rx #180 tabs ferrous sulfate 325 mg (65 mg 325 mg PO QDAY 01/31/25 01/31/25 H istory iron) tablet Have you fallen in the past year?: Yes (passed out and fell to the ground) [facility] Medical History (Updated 01/31/25 @ 08:[address] Bjorn Bradshaw MD) Scoliosis Thoracic spine pain Chills Right upper quadrant pain Left ankle pain Osteomyelitis Pain of left calf Foot pain Hyponatremia Vasovagal episode Pulse irregularity Bilirubinuria Contact with or exposure to other viral diseases Lumbosacral radiculopathy at L5 History of steroid therapy Smokeless tobacco use Tension headache Agent orange exposure Bilateral primary osteoarthritis of knee Wears hearing aid Cancer Alcohol use Diabetes Ambulates with cane Arthritis Prostate disease High cholesterol ( 08/21/23) Restless legs Back pain Injury of head and neck Syncope History of IBS Shortness of breath on exertion History of pain when walking History of echocardiogram History of stress test Cardiology follow-up encounter Tear of medial meniscus of right knee Fibromyalgia BPH w urinary obs/LUTS Left knee DJD Right knee DJD Fusion of spine, cervical region Chondromalacia, right knee Chondromalacia, left knee Chondromalacia of both patellae COVID-19 virus detected (11/19/20) Nonrheumatic aortic (valve) stenosis with insufficiency Opioid dependence Obesity Asthma Hyperlipemia Essential (primary) hypertension Atherosclerotic heart disease of [place] coronary artery without angina pectoris Type 2 diabetes mellitus Spondylosis of lumbosacral region without myelopathy or radiculopathy Spinal stenosis of lumbosacral region Radiculopathy of lumbosacral region Degeneration of intervertebral disc of lumbosacral region Arthropathy of cervical facet joint Degeneration of cervical disc without myelopathy Cervical spondylosis Surgical History Hx of laminectomy S/P laminectomy Status post discectomy for herniated nucleus pulposus History of lateral meniscus repair of right knee ( 2021) Hx laparoscopic cholecystectomy ( 11/2022) Hx of bilateral cataract extraction H/O cervical spine surgery (08/2020) History of herniorrhaphy History of carpal tunnel release History of back surgery History of left heart catheterization (09/09/11) H/O coronary artery bypass s (more content not included)... Normal [facility] Absolute lymphocyte countOrd ered By: Marshall Bear on 01-28-2025 Lymphocytes Auto (Unsp spec) [#/Vol] 1.83 10*3/uL 0.83-4.51 [facility] Absolute neutrophil countOrd ered By: Marshall Bear on 01-28-2025 Neutrophils (Bld) [#/Vol] 2.9 10*3/uL 2.0-7.7 [facility] Anion gap in Serum or Plasma Ordered By: Marshall Bear on 01-28-2025 Anion gap [Moles/Vol] 10 mmol/L - [facility] Automated lymphocyte count a s percentage of total leukocytesOrdered By: Marshall Bear on 01-28-2025 Lymphocytes/100 WBC Auto (Unsp spec) 33.2 % 19-41 [facility] BUN/creatinine ratioOrdered By: Marshall Bear on 01-28-2025 Urea nitrogen/Creatinine [Mass ratio] 18.9 mg/mg 10- [facility] Basic Metabolic Profile (BMP )on 01-28-2025 BUN/CRE 18.9 RATIO Normal - [facility] Comment on above: Performed By: #### L 501.9520, L501.9985, L500.2500, L500.4100, L100.0100 ####[facility] [address] [place], [address] Calcium [Mass/Vol] 9.3 mg/dL Normal 7.6-11.0 [facility] Comment on above: Performed By: #### L 501.9520, L501.9985, L500.2500, L500.4100, L100.0100 ####[facility] [address] [place], [address] Chloride [Moles/Vol] 104 mmol/L Normal 98-108 [facility] Comment on above: Performed By: #### L 501.9520, L501.9985, L500.2500, L500.4100, L100.0100 ####[facility] [address] [place], [address] CO2 [Moles/Vol] 24.6 mmol/L Normal 21.0-32.0 [facility] Comment on above: Performed By: #### L 501.9520, L501.9985, L500.2500, L500.4100, L100.0100 ####[facility] [address] [place], [address] Creatinine [Mass/Vol] 1.36 mg/dL High 0.70-1.20 [facility] Comment on above: Performed By: #### L 501.9520, L501.9985, L500.2500, L500.4100, L100.0100 ####[facility] [address] [place], [address] GAP 10 Normal 5-15 [facility] Comment on above: Performed By: #### L 501.9520, L501.9985, L500.2500, L500.4100, L100.0100 ####[facility] [address] [place], [address] GFR/1.73 sq M.predicted among non-blacks MDRD (S/P/Bld) [Vol rate/Area] 56 mL/min/{1.73_m2} Low >60 [facility] Comment on above: Result Comment: mL/m in/1.73m2 CKD-EPI Creatinine Equation (2020) Performed By: #### L 501.9520, L501.9985, L500.2500, L500.4100, L100.0100 ####[facility] [address] [place], [address] Glucose [Mass/Vol] 101 mg/dL High 70-99 [facility] Comment on above: Performed By: #### L 501.9520, L501.9985, L500.2500, L500.4100, L100.0100 ####[facility] [address] [place], [address] Potassium [Moles/Vol] 4.3 mmol/L Normal 3.3-5.1 [facility] Comment on above: Performed By: #### L 501.9520, L501.9985, L500.2500, L500.4100, L100.0100 ####[facility] [address] [place], [address] Sodium [Moles/Vol] 139 mmol/L Normal 133-145 [facility] Comment on above: Performed By: #### L 501.9520, L501.9985, L500.2500, L500.4100, L100.0100 ####[facility] [address] [place], [address] Urea nitrogen [Mass/Vol] 26 mg/dL High 4-19 [facility] Comment on above: Performed By: #### L 501.9520, L501.9985, L500.2500, L500.4100, L100.0100 ####[facility] [address] [place], [address] Basophil percentageOrdered B y: Marshall Bear on 01-28-2025 Basophils/100 WBC (Bld) 0.7 % 0-1 [facility] CBC W/Diff, Automatedon 01-12 Absolute Lymph 1.83 X10 3/uL Normal 0.83-4.51 [facility] Comment on above: Performed By: #### L 501.9520, L501.9985, L500.2500, L500.4100, L100.0100 ####[facility] [address] [place], [address] Absolute Neut 2.9 X10 3/uL Normal 2.0-7.7 [facility] Comment on above: Performed By: #### L 501.9520, L501.9985, L500.2500, L500.4100, L100.0100 ####[facility] [address] [place], [address] Basophils/100 WBC (Bld) 0.7 % Normal 0-1 [facility] Comment on above: Performed By: #### L 501.9520, L501.9985, L500.2500, L500.4100, L100.0100 ####[facility] [address] [place], [address] Eosinophils/100 WBC (Bld) 4.0 % Normal 0-5 [facility] Comment on above: Performed By: #### L 501.9520, L501.9985, L500.2500, L500.4100, L100.0100 ####[facility] [address] [place], [address] Erythrocyte distribution width (RBC) [Ratio] 13.2 % Normal 11.6-14.6 [facility] Comment on above: Performed By: #### L 501.9520, L501.9985, L500.2500, L500.4100, L100.0100 ####[facility] [address] [place], [address] Hematocrit (Bld) [Volume fraction] 37.4 % Low 40-54 [facility] Comment on above: Performed By: #### L 501.9520, L501.9985, L500.2500, L500.4100, L100.0100 ####[facility] [address] [place], [address] Hemoglobin (Bld) [Mass/Vol] 12.2 g/dL Low 13.0-16.5 [facility] Comment on above: Performed By: #### L 501.9520, L501.9985, L500.2500, L500.4100, L100.0100 ####[facility] [address] [place], [address] IG% 0.400 Normal 0.0-0.9 [facility] Comment on above: Result Comment: IG% - Immature Granulocytes (promyelocytes, myelocytes and metamyelocytes) > 1% indicates that a LEFT SHIFT is Present. Performed By: #### L 501.9520, L501.9985, L500.2500, L500.4100, L100.0100 ####[facility] [address] [place], [address] Lymphocytes/100 WBC (Bld) 33.2 % Normal 19-41 [facility] Comment on above: Performed By: #### L 501.9520, L501.9985, L500.2500, L500.4100, L100.0100 ####[facility] [address] [place], [address] MCH (RBC) [Entitic mass] 29.3 pg Normal 27.0-32.0 [facility] Comment on above: Performed By: #### L 501.9520, L501.9985, L500.2500, L500.4100, L100.0100 ####[facility] [address] [place], [address] MCHC (RBC) [Mass/Vol] 32.6 g/dL Normal 32-36 [facility] Comment on above: Performed By: #### L 501.9520, L501.9985, L500.2500, L500.4100, L100.0100 ####[facility] [address] [place], [address] MCV (RBC) [Entitic vol] 89.9 fL Normal 80-94 [facility] Comment on above: Performed By: #### L 501.9520, L501.9985, L500.2500, L500.4100, L100.0100 ####[facility] [address] [place], [address] Monocytes/100 WBC (Bld) 9.2 % Normal 0-10 [facility] Comment on above: Performed By: #### L 501.9520, L501.9985, L500.2500, L500.4100, L100.0100 ####[facility] [address] [place], [address] Neutrophils/100 WBC (Bld) 52.5 % Normal 47-70 [facility] Comment on above: Performed By: #### L 501.9520, L501.9985, L500.2500, L500.4100, L100.0100 ####[facility] [address] [place], [address] Nucleated RBC (Bld) [#/Vol] 0 10*3/uL Normal 0-5 [facility] Comment on above: Performed By: #### L 501.9520, L501.9985, L500.2500, L500.4100, L100.0100 ####[facility] [address] [place], [address] Platelet mean volume (Bld) [Entitic vol] 8.9 fL Normal 6.2-12.0 [facility] Comment on above: Performed By: #### L 501.9520, L501.9985, L500.2500, L500.4100, L100.0100 ####[facility] [address] [place], [address] Platelets (Bld) [#/Vol] 243 10*3/uL Normal 150-450 [facility] Comment on above: Performed By: #### L 501.9520, L501.9985, L500.2500, L500.4100, L100.0100 ####[facility] [address] [place], [address] RBC (Bld) [#/Vol] 4.16 10*6/uL Low 4.6-6.2 [facility] Comment on above: Performed By: #### L 501.9520, L501.9985, L500.2500, L500.4100, L100.0100 ####[facility] [address] [place], [address] RDW SD 43.4 fl Normal 35.1-43.9 [facility] Comment on above: Performed By: #### L 501.9520, L501.9985, L500.2500, L500.4100, L100.0100 ####[facility] [address] [place], [address] WBC (Bld) [#/Vol] 5.5 10*3/uL Normal 4.4-11.0 [facility] Comment on above: Performed By: #### L 501.9520, L501.9985, L500.2500, L500.4100, L100.0100 ####[facility] [address] [place], [address] Calculated very low density lipoprotein (VLDL) cholesterol measurementOrdered By: Marshall Bear on 01-28-2025 Calculated very low density lipoprotein (VLDL) cholesterol measurement 16 mg/dL 5-40 [facility] Carbon dioxide, total [Moles /volume] in Central venous bloodOrdered By: Marshall Bear on 01-28-2025 CO2 [Moles/Vol] 24.6 mmol/L 21.0-32.0 [facility] Chloride assayOrdered By: Gracy Bear on 01-28-2025 Chloride [Moles/Vol] 104 mmol/L 98-108 [facility] Eosinophil percentageOrdered By: Marshall Bear on 01-28-2025 Eosinophils/100 WBC (Bld) 4.0 % 0-5 [facility] Erythrocyte distribution wid th ratioOrdered By: Marshall Bear on 01-28-2025 Erythrocyte distribution width (RBC) [Ratio] 13.2 % 11.6-14.6 [facility] Erythrocyte distribution wid th standard deviationOrdered By: Marshall Bear on 01-28-2025 Erythrocyte distribution width (RBC) [Ratio] 43.4 fl 35.1-43.9 [facility] Glomerular filtration rate ( GFR) estimation/1.73 sq m using serum, plasma, or whole bOrdered By: Marshall Bear on 01-28-2025 GFR/1.73 sq M.predicted among non-blacks MDRD (S/P/Bld) [Vol rate/Area] 56 mL/min/{1.73_m2} Low >60 [facility] Comment on above: mL/min/1.73m2 CKD-EP I Creatinine Equation (2020) Hematocrit Auto (Bld) [Volum e fraction]Ordered By: Marshall Bear on 01-28-2025 Hematocrit (Bld) [Volume fraction] 37.4 % Low 40-54 [facility] Hemoglobin A1con 01-28-2025 HbA1c (Bld) [Mass fraction] 5.7 % Normal <=5.6 [facility] Comment on above: Result Comment: Norm al < 5.7 % Prediabetic 5.7 - 6.4 % Diabetic >or= 6.5 % Please note range changes. Performed By: #### L 501.9520, L501.9985, L500.2500, L500.4100, L100.0100 ####[facility] [address] [place], [address] Hemoglobin A1c percentageOrd ered By: Marshall Bear on 01-28-2025 HbA1c (Bld) [Mass fraction] 5.7 % <5.7 [facility] Comment on above: Normal < 5.7 % Predi abetic 5.7 - 6.4 % Diabetic >or= 6.5 % Please note range changes. Hemoglobin measurementOrdere d By: Marshall Bear on 01-28-2025 Hemoglobin (Bld) [Mass/Vol] 12.2 g/dL Low 13.0-16.5 [facility] Immature granulocytes/100 WB C Auto (Bld)Ordered By: Marshall Bear on 01-28-2025 Immature granulocytes/100 WBC (Bld) 0.400 % 0.0-0.9 [facility] Comment on above: IG% - Immature Granu locytes (promyelocytes, myelocytes and metamyelocytes) > 1% indicates that a LEFT SHIFT is Present. LDL calc ser/plasOrdered By: Marshall Bear on 01-28-2025 Cholesterol in LDL [Mass/Vol] 175 mg/dL [facility] Comment on above: Kaqiumfuiz=414-815 m g/dL & Higher Hoqf=259 mg/dL or greater Lipid Profileon 01-28-2025 CHOL:HDL 4.51 Normal [facility] Comment on above: Performed By: #### L 501.9520, L501.9985, L500.2500, L500.4100, L100.0100 ####[facility] [address] [place], [address] Cholesterol [Mass/Vol] 245 mg/dL High <=[address] [facility] Comment on above: Result Comment: Chol esterol level, Desirable <200 mg/dL Borderline high cholesterol 200-239 mg/dL High cholesterol >=240 mg/dL Recommendations of the NCEP Adult Treatment Panel for the following risk-cutoff thresholds for the [place] population. Performed By: #### L 501.9520, L501.9985, L500.2500, L500.4100, L100.0100 ####[facility] [address], [address] Cholesterol in HDL [Mass/Vol] 54 mg/dL Normal [facility] Comment on above: Result Comment: Bren onal Cholesterol Education Program (NCEP) guidelines: <40 mg/dL: Low HDL-cholesterol (major risk factor for CHD) >= 60 mg/dL: High HDL-cholesterol (negative risk factor for CHD) HDL-cholesterol is affected by a number of factors, e.g. smoking, exercise, hormones, sex and age. Performed By: #### L 501.9520, L501.9985, L500.2500, L500.4100, L100.0100 ####[facility] [address] [place], [address] Cholesterol in LDL [Mass/Vol] 175 mg/dL Normal [facility] Comment on above: Result Comment: Bord lizchk=704-917 mg/dL Higher Tyfy=920 mg/dL or greater Performed By: #### L 501.9520, L501.9985, L500.2500, L500.4100, L100.0100 ####[facility] [address] [place], [address] Cholesterol in VLDL [Mass/Vol] 16 mg/dL Normal 5-40 [facility] Comment on above: Performed By: #### L 501.9520, L501.9985, L500.2500, L500.4100, L100.0100 ####[facility] [address] [place], [address] Triglyceride [Mass/Vol] 81 mg/dL Normal [facility] Comment on above: Result Comment: The drugs N-Acetylcysteine and Metamizole may falsely depress this assay. Normal range: <150 mg/dL Borderline High: 150-199 mg/dL High: 200-499 mg/dL Very High: >500 mg/dL Performed By: #### L 501.9520, L501.9985, L500.2500, L500.4100, L100.0100 ####[facility] [address] [place], [address] MCV (mean corpuscular volume ) determinationOrdered By: Marshall Bear on 01-28-2025 MCV (RBC) [Entitic vol] 89.9 fL 80-94 [facility] Mean corpuscular hemoglobin (MCH) determinationOrdered By: Marshall Bear on 01-28-2025 MCH (RBC) [Entitic mass] 29.3 pg 27.0-32.0 [facility] Mean corpuscular hemoglobin concentration (MCHC) determinationOrdered By: Marshall Bear on 01-28-2025 MCHC (RBC) [Mass/Vol] 32.6 g/dL 32-36 [facility] Mean platelet volume determi nationOrdered By: Marshall Bear on 01-28-2025 Platelet mean volume (Bld) [Entitic vol] 8.9 fL 6.2-12.0 [facility] Monocyte percentageOrdered B y: Marshall Bear on 01-28-2025 Monocytes/100 WBC (Bld) 9.2 % 0-10 [facility] Neutrophil percentageOrdered By: Marshall Bear on 01-28-2025 Neutrophils/100 WBC (Bld) 52.5 % 47-70 [facility] Nucleated red blood cell per centageOrdered By: Marshall Bear on 01-28-2025 Nucleated RBC/100 WBC (Bld) [Ratio] 0 % 0-5 [facility] Platelet countOrdered By: Gracy Bear on 01-28-2025 Platelets (Bld) [#/Vol] 243 10*3/uL 150-450 [facility] Potassium measurement (mass/ volume)Ordered By: Marshall Bear on 01-28-2025 Potassium (Unsp spec) [Mass/Vol] 4.3 mmol/L 3.3-5.1 [facility] RBC Auto (Bld) [#/Vol]Ordere d By: Marshall Bear on 01-28-2025 RBC (Bld) [#/Vol] 4.16 10*6/uL Low 4.6-6.2 [facility] Screening total cholesterol/ high density lipoprotein (HDL) cholesterol ratioOrdered By: Marshall Bear on 01-28-2025 Cholesterol.total/Chol esterol in HDL [Mass ratio] 4.51 {ratio} [facility] Serum creatinine measurement (mass/volume)Ordered By: Marshall Bear on 01-28-2025 Creatinine [Mass/Vol] 1.36 mg/dL High 0.70-1.20 [facility] Serum glucose measurement (m ass/volume)Ordered By: Marshall Bear on 01-28-2025 Glucose [Mass/Vol] 101 mg/dL High 70-99 [facility] Serum or plasma calcium elver urement (mass/volume)Ordered By: Marshall Bear on 01-28-2025 Calcium [Mass/Vol] 9.3 mg/dL 7.6-11.0 [facility] Serum or plasma cholesterol in HDL measurement (mass/volume)Ordered By: Marshall Bear on 01-28-2025 Cholesterol in HDL [Mass/Vol] 54 mg/dL >40 [facility] Comment on above: National Cholesterol Education Program (NCEP) guidelines:<40 mg/dL: Low HDL-cholesterol (major risk factor for CHD)>= 60 mg/dL: High HDL-cholesterol (negative risk factor for CHD)HDL-cholesterol is affected by a number of factors, e.g. smoking, exercise, hormones, sex and age. Serum or plasma cholesterol measurement (mass/volume)Ordered By: Marshall Bear on 01-28-2025 Cholesterol [Mass/Vol] 245 mg/dL High <[address] [facility] Comment on above: Cholesterol level, D esirable <200 mg/dLBorderline high cholesterol 200-239 mg/dLHigh cholesterol >=240 mg/dLRecommendations of the NCEP Adult Treatment Panel for the following risk-cutoff thresholds for the [place] population. Serum or plasma urea nitroge n measurement (mass/volume)Ordered By: Marshall Bear on 01-28-2025 Urea nitrogen [Mass/Vol] 26 mg/dL High 4-19 [facility] Sodium levelOrdered By: Alexandra Bear on 01-28-2025 Sodium [Moles/Vol] 139 mmol/L 133-145 [facility] TSH DL <= 0.005 mIU/L QnOrde red By: Marshall Bear on 01-28-2025 TSH Qn 1.680 uIU/mL 0.300-4.200 [facility] Thyroid Stim Hormone (TSH)on 01-28-2025 TSH 1.680 uIU/mL Normal 0.300-4.200 [facility] Comment on above: Performed By: #### L 501.9520, L501.9985, L500.2500, L500.4100, L100.0100 ####[facility] [address] [place], [place], [id number] Triglycerides measurementOrd ered By: Marshall Bear on 01-28-2025 Triglyceride [Mass/Vol] 81 mg/dL <199 [facility] Comment on above: The drugs N-Acetylcy steine and Metamizole may falsely depress this assay. Normal range: <150 mg/dLBorderline High: 150-199 mg/dLHigh: 200-499 mg/dLVery High: >500 mg/dL White blood cell (WBC) count Ordered By: Marshall Bear on 01-28-2025 WBC (Bld) [#/Vol] 5.5 10*3/uL 4.4-11.0 [facility] MR/BMS.IMBon 01-27-2025 MR/BMS.B [facility] [address] [place] [address] OFFICE VISIT Date of Service: 01/27/25 MR#: [id number] Acct: [id number] Name: JARET BATES Rep #: [id number] : 1955 Provider: Dr. Marshall perez MD Age/Sex: 69/M Location: [facility] Status: Signed Intake Vital Signs 10/04/24 09:52 01/27/25 10:47 01/27/25 11:22 01/27/25 11:24 01/27/25 11:26 Height 5 ft 10 in 5 ft 10 in Weight: 186 lb 191 lb 6 oz BMI 26.6 27.4 BP 114/68 128/78 H 136/82 H 142/86 H 143/93 H Blood Pressure Location Lt brachial Lt brachial Lt brachial Lt brachial Lt brachial Position Sitting Sitting Supine Sitting Standing Respiration 15 16 Pulse 77 69 64 65 74 Pulse Source Monitor Monitor Monitor Monitor Monitor Temp 98.4 F 98.2 F Temp Source Temporal Temporal Pulse Oximetry (%) 98 96 Oxygen Delivery Method room air room air Intake Visit Reasons: Syncopal Episode Chief Complaint: Syncopal Episode 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 Accompanied by: Is patient in pain?: Yes (Headaches) Pain scale (1-10): 3 Allergies adhesive tape Allergy (Verified 01/27/25 10:40) Rash sertraline (From Zoloft) Adverse Reaction (Verified 01/27/25 10:40) Unknown Medications ???Medication ???Instructions ???Recorded ???Confirmed ???Type multivitamin 1 tab PO DAILY supplement 07/09/19 01/27/25 History handicap placard #1 ea 04/21/22 01/27/25 Rx fluticasone propionate 50 1 - 2 spray intranasal BID PRN 01/27/25 Rx mcg/actuation nasal allergies, congestion #16 grams spray,suspension atorvastatin 40 mg tablet 40 mg PO QHS CHOLESTEROL #90 tabs 08/21/23 01/27/25 Rx sennosides 8.6 mg-docusate sodium 2 tab PO BID PRN constipation 10 01/23/24 01/27/25 Rx 50 mg tablet (Stool days #40 tabs Softener-Stimulant Laxative) albuterol sulfate 90 mcg/actuation 1 - 2 puff inhalation Q4H PRN 01/27/25 History aerosol inhaler Wheezing oxycodone-acetaminophen 7.5 mg-325 1 tab PO BID pain 03/16/2401/27 History mg tablet gabapentin 100 mg capsule 600 mg PO TID pain 04/18/24 History metoclopramide HCl 10 mg tablet 10 mg PO Q8 PRN nausea/vomiting 01/27/25 History tamsulosin 0.4 mg capsule 0.4 mg PO DAILY BPH #90 caps 07/0801/27/25 Rx baclofen 5 mg tablet 5 mg PO BID PRN 07/18/24 01/27/25 History blood sugar diagnostic (FreeStyle #100 ea 07/18/24 01/27/25 Rx Lite Strips) blood-glucose meter (FreeStyle #1 ea 07/18/24 01/27/25 Rx Lite Meter kit) trazodone 100 mg tablet See Rx Instructions PO QHS sleep 0 08/29/24 01/27/25 Rx #90 tabs linaclotide 72 mcg capsule 72 mcg PO DAILY PRN irritable 09/1401/27/25 Rx (Linzess) colon #90 caps doxycycline monohydrate 100 mg 100 mg PO BID 10/04/24 01/27/25 Hi story capsule metformin 500 mg tablet 500 mg PO BID DIABETIC 1 month 03/0701/27/25 Rx #180 tabs Have you fallen in the past year?: Yes (01/23/2025) [facility] Medical History Thoracic spine pain Chills Right upper quadrant pain Left ankle pain Osteomyelitis Pain of left calf Foot pain Hyponatremia Vasovagal episode Pulse irregularity Bilirubinuria Contact with or exposure to other viral diseases Lumbosacral radiculopathy at L5 History of steroid therapy Smokeless tobacco use Tension headache Agent orange exposure Bilateral primary osteoarthritis of knee Wears hearing aid Cancer Alcohol use Diabetes Ambulates with cane Arthritis Prostate disease High cholesterol ( 08/21/23) Restless legs Back pain Injury of head and neck Syncope History of IBS Shortness of breath on exertion History of pain when walking History of echocardiogram History of stress test Cardiology follow-up encounter Tear of medial meniscus of right knee Fibromyalgia BPH w urinary obs/LUTS Left knee DJD Right knee DJD Fusion of spine, cervical region Chondromalacia, right knee Chondromalacia, left knee Chondromalacia of both patellae COVID-19 virus detected (11/19/20) Nonrheumatic aortic (valve) stenosis with insufficiency Opioid dependence Obesity Asthma Hyperlipemia Essential (primary) hypertension Atherosclerotic heart disease of [place] coronary artery without angina pectoris Type 2 diabetes mellitus Spondylosis of lumbosacral region without myelopathy or radiculopathy Spinal stenosis of lumbosacral region Radiculopathy of lumbosacral region Degeneration of intervertebral disc of lumbosacral region Arthropathy of cervical facet joint Degeneration of cervical disc without myelopathy Cervical spondylosis Surgical History Hx of laminectomy S/P laminectomy Status post discectomy for herniated nucleus pulposus (more content not included)... Normal [facility] Neurology Visit Reporton Neurology Visit Report [facility] [address], [address] [place] [address] OFFICE VISIT Date of Service: 10/04/24 MR#: [id number] Acct: [id number] Name: JARET BATES Rep #: [id number] : 1955 Provider: Dr. Talat rice MD Age/Sex: 69/M Location[place] [facility] Status: Signed HPI HPI Chief Complaint: Establish Care Details: The patient is a 69-year-old right handed male who presents to [facility]. He was referred by Dr. Julio Daniel DPM with [facility] for left foot and ankle pain that radiates up his leg. Has dizziness and headaches. This patient is accompanied by his for today's visit. Patient has a complex past medical and neurologic history. Review of prior records including foot and ankle [facility] records and primary care physician records. Patient has had a multitude of issues. For purposes of this visit we are addressing concerns with regard to changes with respect to his left foot. His medical and neurologic background indicate the followin. Patient had a number of congenital anomalies and difficulties at . He has a known congenital heart murmur. He does have an asymmetry with a larger foot than right foot which was noted on today's visit which he was unaware of but is consistent with a congenital finding. 2. He was born with markedly flatfeet. In spite of this he was able to get into the . 3. He has a remote history of a cervical spine fusion. This appears to be stable. 4. 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 Beginning last October he has had surgeries and multiple hospitalizations for management including surgery and IV antibiotic therapy. Last hospitalization was in March 2024. Patient had episodes of being unaware and apparently had been placed in ICU for period of time. 5. He had swelling and pain in the left foot of uncertain etiology. He had extensive testing for clots fractures infection which had been negative. Concerns over possible Charcot foot was raised by podiatry. 6. In August he had completed a course of doxycycline for osteomyelitis. This is under the management of infectious disease physician. Doxycycline was then discontinued and because of symptoms his doxycycline was reinitiated in September. 7. Patient's foot in the meantime demonstrated marked improvement. This may occurred in concert with treatment of his osteomyelitis. Relationship is not definitely defined at this point in time. 8. Patient does have a certain intolerance of doxycycline which may make him queasy but he is also experiencing headache. Some patients on doxycycline may experience increased intracranial pressure which can produce a characteristic occipital type of headache of varying intensity. Some people have intense headache and others do not. At this point in time his foot seems to have made a good recovery but there are some significant asymmetries which do present themselves on physical exam which will be discussed below. ROS: General: Fever malaise confusion appear to be in abatement at this time. Possible effect of management of osteomyelitis. HEENT: Does have occipital headaches particularly towards the end of the day. Pressure-like pain. Possible effect of doxycycline. Eyes: No acute change Ears: Chronic decreased hearing for many years. Oropharynx intermittent difficulty with swallowing. Longstanding problem. Patient has problems with dentition and had to do with illness during infancy. Respiratory: No hemoptysis. Appears stable cardiopulmonary status. Cardiac: Congenital heart murmur. Status deferred to internal medicine. Abdomen. Does not vomit blood past blood in stool no tarry black stools. No blood in urine. Extremities: Diffuse aching pain polyarticular pain nonspecific possibly related to change in overall health status. He has had a 60 pound weight loss over the past year due to marked illnesses. Skin. No obvious rashes noted. Spine: Patient has difficulties with remote neck fusion which is stable and current difficulty of lumbar surgery and osteomyelitis which apparently has been difficult to clear. Patient is had significant systemic symptoms related to persistent MAC infection and its sequelae. Exam Const Other: Blood pressure 114/68 pulse 77 respirations 15 temperature 98.4 O2 sat 98%. BMI is 26.6%. Head: Normocephalic no raccoon's eyes or Coleman sign. Eyes: Conjunctiva clear Ears: Chronic impaired hearing Oropharynx poor dentition due to illnesses in infancy Respiratory appears to be breathing normally Cardiac: Regular rhythm. Murmur and deferred to primary care. Patient also sees security services specialist. Abdomen: Not distended Extremities: Left foot noticeably larger than right. Left foot has a mild erythematous appearance. No obvious hot swollen joints. Skin: Skin and nails of the feet appear intact. Neurologic ex (more content not included)... Normal [facility] CBC W/Diff, Automatedon 02-0 6-2024 Absolute Lymph 1.02 X10 3/uL Normal 0.83-4.51 [facility] Comment on above: Performed By: #### L 100.0100, L500.4050, L501.9520, L501.6710, L509.7000, L501.9910, L501.5200, L501.9985, L101.9900, L506.1000 ####[facility] [address] [place], [address] Absolute Neut 5.6 X10 3/uL Normal 2.0-7.7 [facility] Comment on above: Performed By: #### L 100.0100, L500.4050, L501.9520, L501.6710, L509.7000, L501.9910, L501.5200, L501.9985, L101.9900, L506.1000 ####[facility] [address] [place], [place], [phone]) Basophils/100 WBC (Bld) 0.6 % Normal 0-1 [facility] Comment on above: Performed By: #### L 100.0100, L500.4050, L501.9520, L501.6710, L509.7000, L501.9910, L501.5200, L501.9985, L101.9900, L506.1000 ####[facility] [address] [place], [address](625) Eosinophils/100 WBC (Bld) 0.3 % Normal 0-5 [facility] Comment on above: Performed By: #### L 100.0100, L500.4050, L501.9520, L501.6710, L509.7000, L501.9910, L501.5200, L501.9985, L101.9900, L506.1000 ####[facility] [address] [place], [place], [phone]) Erythrocyte distribution width (RBC) [Ratio] 13.2 % Normal 11.6-14.6 [facility] Comment on above: Performed By: #### L 100.0100, L500.4050, L501.9520, L501.6710, L509.7000, L501.9910, L501.5200, L501.9985, L101.9900, L506.1000 ####[facility] [address] [place], [place], [phone](296) Hematocrit (Bld) [Volume fraction] 36.6 % Low 40-54 [facility] Comment on above: Performed By: #### L 100.0100, L500.4050, L501.9520, L501.6710, L509.7000, L501.9910, L501.5200, L501.9985, L101.9900, L506.1000 ####[facility] [address] [place], [address] Hemoglobin (Bld) [Mass/Vol] 12.1 g/dL Low 13.0-16.5 [facility] Comment on above: Performed By: #### L 100.0100, L500.4050, L501.9520, L501.6710, L509.7000, L501.9910, L501.5200, L501.9985, L101.9900, L506.1000 ####[facility] [address] [place], [place], [phone]) IG% 0.600 Normal 0.0-0.9 [facility] Comment on above: Result Comment: IG% - Immature Granulocytes (promyelocytes, myelocytes and metamyelocytes) > 1% indicates that a LEFT SHIFT is Present. Performed By: #### L 100.0100, L500.4050, L501.9520, L501.6710, L509.7000, L501.9910, L501.5200, L501.9985, L101.9900, L506.1000 ####[facility] [address] [place], [address] Lymphocytes/100 WBC (Bld) 14.7 % Low 19-41 [facility] Comment on above: Performed By: #### L 100.0100, L500.4050, L501.9520, L501.6710, L509.7000, L501.9910, L501.5200, L501.9985, L101.9900, L506.1000 ####[facility] [address] [place], [address] MCH (RBC) [Entitic mass] 28.9 pg Normal 27.0-32.0 [facility] Comment on above: Performed By: #### L 100.0100, L500.4050, L501.9520, L501.6710, L509.7000, L501.9910, L501.5200, L501.9985, L101.9900, L506.1000 ####[facility] [address] [place], [address] MCHC (RBC) [Mass/Vol] 33.1 g/dL Normal 32-36 [facility] Comment on above: Performed By: #### L 100.0100, L500.4050, L501.9520, L501.6710, L509.7000, L501.9910, L501.5200, L501.9985, L101.9900, L506.1000 ####[facility] [address] [place], [address] MCV (RBC) [Entitic vol] 87.6 fL Normal 80-94 [facility] Comment on above: Performed By: #### L 100.0100, L500.4050, L501.9520, L501.6710, L509.7000, L501.9910, L501.5200, L501.9985, L101.9900, L506.1000 ####[facility] [address] [place], [address] Monocytes/100 WBC (Bld) 3.5 % Normal 0-10 [facility] Comment on above: Performed By: #### L 100.0100, L500.4050, L501.9520, L501.6710, L509.7000, L501.9910, L501.5200, L501.9985, L101.9900, L506.1000 ####[facility] [address] [place], [address] Neutrophils/100 WBC (Bld) 80.3 % High 47-70 [facility] Comment on above: Performed By: #### L 100.0100, L500.4050, L501.9520, L501.6710, L509.7000, L501.9910, L501.5200, L501.9985, L101.9900, L506.1000 ####[facility] [address] [place], [address] Nucleated RBC (Bld) [#/Vol] 0 10*3/uL Normal 0-5 [facility] Comment on above: Performed By: #### L 100.0100, L500.4050, L501.9520, L501.6710, L509.7000, L501.9910, L501.5200, L501.9985, L101.9900, L506.1000 ####[facility] [address] [place], [place], [phone]) Platelet mean volume (Bld) [Entitic vol] 8.5 fL Normal 6.2-12.0 [facility] Comment on above: Performed By: #### L 100.0100, L500.4050, L501.9520, L501.6710, L509.7000, L501.9910, L501.5200, L501.9985, L101.9900, L506.1000 ####[facility] [address] [place], [place], [phone](711) Platelets (Bld) [#/Vol] 236 10*3/uL Normal 150-450 [facility] Comment on above: Performed By: #### L 100.0100, L500.4050, L501.9520, L501.6710, L509.7000, L501.9910, L501.5200, L501.9985, L101.9900, L506.1000 ####[facility] [address] [place], [place], [phone](350) RBC (Bld) [#/Vol] 4.18 10*6/uL Low 4.6-6.2 [facility] Comment on above: Performed By: #### L 100.0100, L500.4050, L501.9520, L501.6710, L509.7000, L501.9910, L501.5200, L501.9985, L101.9900, L506.1000 ####[facility] [address] [place], [address] RDW SD 41.9 fl Normal 35.1-43.9 [facility] Comment on above: Performed By: #### L 100.0100, L500.4050, L501.9520, L501.6710, L509.7000, L501.9910, L501.5200, L501.9985, L101.9900, L506.1000 ####[facility] [address] [place], [place], [phone] WBC (Bld) [#/Vol] 6.9 10*3/uL Normal 4.4-11.0 [facility] Comment on above: Performed By: #### L 100.0100, L500.4050, L501.9520, L501.6710, L509.7000, L501.9910, L501.5200, L501.9985, L101.9900, L506.1000 ####[facility] [address] [place], [place], [phone] CRPon 09-19-2024 C-REACTIVE PROT < 2.90 Normal 0.0-3.0 [facility] Comment on above: Result Comment: C-Re active Protein (CRP) provides useful information for the diagnosis, therapy and monitoring of inflammatory processes and associated diseases. For the evaluation of Relative Risk for Cardiovascular Disease, a High Sensitivity CRP (HSCRP) should be ordered. Performed By: #### L 100.0100, L500.4050, L501.9520, L501.6710, L509.7000, L501.9910, L501.5200, L501.9985, L101.9900, L506.1000 ####[facility] [address] [place], [address] Comprehensive Metabolic Prof ilon 09-19-2024 Albumin [Mass/Vol] 4.0 g/dL Normal 3.2-5.0 [facility] Comment on above: Performed By: #### L 100.0100, L500.4050, L501.9520, L501.6710, L509.7000, L501.9910, L501.5200, L501.9985, L101.9900, L506.1000 ####[facility] [address] [place], [address] Albumin/Globulin [Mass ratio] 1.1 {ratio} Normal 0.9-2.4 [facility] Comment on above: Performed By: #### L 100.0100, L500.4050, L501.9520, L501.6710, L509.7000, L501.9910, L501.5200, L501.9985, L101.9900, L506.1000 ####[facility] [address] [place], [address] ALK P 77 U/L Normal 45-117 [facility] Comment on above: Performed By: #### L 100.0100, L500.4050, L501.9520, L501.6710, L509.7000, L501.9910, L501.5200, L501.9985, L101.9900, L506.1000 ####[facility] [address] [place], [address] ALT [Catalytic activity/Vol] 24 U/L Normal 16-61 [facility] Comment on above: Performed By: #### L 100.0100, L500.4050, L501.9520, L501.6710, L509.7000, L501.9910, L501.5200, L501.9985, L101.9900, L506.1000 ####[facility] [address] [place], [address] AST [Catalytic activity/Vol] 17 U/L Normal 15-37 [facility] Comment on above: Performed By: #### L 100.0100, L500.4050, L501.9520, L501.6710, L509.7000, L501.9910, L501.5200, L501.9985, L101.9900, L506.1000 ####[facility] [address] [place], [address] Bilirubin [Mass/Vol] 1.10 mg/dL High 0.20-1.00 [facility] Comment on above: Result Comment: For patients on eltrombopag therapy, use of Dimension [place] TBIL is not recommended. Performed By: #### L 100.0100, L500.4050, L501.9520, L501.6710, L509.7000, L501.9910, L501.5200, L501.9985, L101.9900, L506.1000 ####[facility] [address] [place], [address] BUN/CRE 18.4 RATIO Normal 10-20 [facility] Comment on above: Performed By: #### L 100.0100, L500.4050, L501.9520, L501.6710, L509.7000, L501.9910, L501.5200, L501.9985, L101.9900, L506.1000 ####[facility] [address] [place], [address] CA,Total 8.8 mg/dL Normal 8.5-10.1 [facility] Comment on above: Performed By: #### L 100.0100, L500.4050, L501.9520, L501.6710, L509.7000, L501.9910, L501.5200, L501.9985, L101.9900, L506.1000 ####[facility] [address] [place], [address] Chloride [Moles/Vol] 100 mmol/L Normal 98-107 [facility] Comment on above: Performed By: #### L 100.0100, L500.4050, L501.9520, L501.6710, L509.7000, L501.9910, L501.5200, L501.9985, L101.9900, L506.1000 ####[facility] [address] [place], [address] CO2 [Moles/Vol] 26.0 mmol/L Normal 21.0-32.0 [facility] Comment on above: Performed By: #### L 100.0100, L500.4050, L501.9520, L501.6710, L509.7000, L501.9910, L501.5200, L501.9985, L101.9900, L506.1000 ####[facility] [address] [place], [address] Creatinine [Mass/Vol] 1.36 mg/dL High 0.70-1.30 [facility] Comment on above: Result Comment: The validity of the calculated GFR GFRAA in patients over 70 years has not been determined. Clinical correlation is essential. Performed By: #### L 100.0100, L500.4050, L501.9520, L501.6710, L509.7000, L501.9910, L501.5200, L501.9985, L101.9900, L506.1000 ####[facility] [address] [place], [address] EST GFR - AA 66 mL/min Normal >60 [facility] Comment on above: Result Comment: Afri can [place] GFR Calc Performed By: #### L 100.0100, L500.4050, L501.9520, L501.6710, L509.7000, L501.9910, L501.5200, L501.9985, L101.9900, L506.1000 ####[facility] [address] [place], [place], [phone](108) GAP 7 Normal 5-15 [facility] Comment on above: Performed By: #### L 100.0100, L500.4050, L501.9520, L501.6710, L509.7000, L501.9910, L501.5200, L501.9985, L101.9900, L506.1000 ####[facility] [address] [place], [address](046) GFR/1.73 sq M.predicted among non-blacks MDRD (S/P/Bld) [Vol rate/Area] 55 mL/min/{1.73_m2} Low >60 [facility] Comment on above: Result Comment: Non- GFR Calc Performed By: #### L 100.0100, L500.4050, L501.9520, L501.6710, L509.7000, L501.9910, L501.5200, L501.9985, L101.9900, L506.1000 ####[facility] [address] [place], [place], [id number](584) Globulin (S) [Mass/Vol] 3.5 g/dL Normal 2.2-4.2 [facility] Comment on above: Performed By: #### L 100.0100, L500.4050, L501.9520, L501.6710, L509.7000, L501.9910, L501.5200, L501.9985, L101.9900, L506.1000 ####[facility] [address] [place], [place], [id number] Glucose [Mass/Vol] 110 mg/dL High 74-106 [facility] Comment on above: Result Comment: Fast ing Glucose result from 100 to 125 mg/dL suggests IMPAIRED HOMEOSTASIS per A.D.A. criteria. Performed By: #### L 100.0100, L500.4050, L501.9520, L501.6710, L509.7000, L501.9910, L501.5200, L501.9985, L101.9900, L506.1000 ####[facility] [address] [place], [address] Potassium [Moles/Vol] 4.0 mmol/L Normal 3.5-5.1 [facility] Comment on above: Performed By: #### L 100.0100, L500.4050, L501.9520, L501.6710, L509.7000, L501.9910, L501.5200, L501.9985, L101.9900, L506.1000 ####[facility] [address] [place], [address] Sodium [Moles/Vol] 133 mmol/L Low 136-145 [facility] Comment on above: Performed By: #### L 100.0100, L500.4050, L501.9520, L501.6710, L509.7000, L501.9910, L501.5200, L501.9985, L101.9900, L506.1000 ####[facility] [address] [place], [address] T PROT 7.5 g/dL Normal 6.4-8.2 [facility] Comment on above: Performed By: #### L 100.0100, L500.4050, L501.9520, L501.6710, L509.7000, L501.9910, L501.5200, L501.9985, L101.9900, L506.1000 ####[facility] [address] [place], [address] Urea nitrogen [Mass/Vol] 25 mg/dL High 7-18 [facility] Comment on above: Performed By: #### L 100.0100, L500.4050, L501.9520, L501.6710, L509.7000, L501.9910, L501.5200, L501.9985, L101.9900, L506.1000 ####[facility] [address] [place], [place], [id number] Erythrocyte Sed Rateon 09-19 SED RATE 4 mm/hr Normal 0-20 [facility] Comment on above: Performed By: #### L 100.0100, L500.4050, L501.9520, L501.6710, L509.7000, L501.9910, L501.5200, L501.9985, L101.9900, L506.1000 ####[facility] [address] [place], [place], [id number] Hemoglobin A1con 09-19-2024 HbA1c (Bld) [Mass fraction] 4.4 % Normal 3.8-5.6 [facility] Comment on above: Result Comment: Norm al < 5.7 % Prediabetic 5.7 - 6.4 % Diabetic >or= 6.5 % Please note range changes. Performed By: #### L 100.0100, L500.4050, L501.9520, L501.6710, L509.7000, L501.9910, L501.5200, L501.9985, L101.9900, L506.1000 ####[facility] [address] [place], [place], [id number] MR/BMS.IMBon 09-19-2024 MR/BMS.IMB [facility] [address] [facility] [place], [place] [address] OFFICE VISIT Date of Service: 09/19/24 MR#: [id number] Acct: [id number] Name: JARET BATES Rep #: [id number] : 1955 Provider: Dr. Marshall perez MD Age/Sex: 69/M Location: BMS.IMB Status: Signed with Addenda ADDENDUM by Musa Livingston RN on 09/20/24 at 0946 Office Procedure Documentation entered by Musa Livingston RN 09/20/24 09:46: Results POC FLU A B Office Flu A B Negative FLU A B Last Edit by Musa Livingston RN on 09/20/24 09:46 Date cc: * Signed Intake Vital Signs 07/18/24 13:21 09/19/24 12:58 Height 5 ft 10 in 5 ft 10 in Weight: 194 lb 4 oz BMI 27.8 BP 128/82 H Blood Pressure Location Lt brachial Position Sitting Respiration 16 Pulse 68 Pulse Source Monitor Temp 98.4 F Temp Source Temporal Pulse Oximetry (%) 96 Oxygen Delivery Method room air Intake Visit Reasons: Fever, Chills Chief Complaint: fever, chills 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 Accompanied by: Is patient in pain?: Yes (back) Pain scale (1-10): 8 Allergies adhesive tape Allergy (Verified 09/19/24 12:54) Rash sertraline (From Zoloft) Adverse Reaction (Verified 09/19/24 12:54) Unknown Medications ???Medication ???Instructions ???Recorded ???Confirmed ???Type multivitamin 1 tab PO DAILY supplement 07/09/19 09/19/24 History handicap placard #1 ea 04/21/22 09/19/24 Rx fluticasone propionate 50 1 - 2 spray intranasal BID PRN 09/19/24 Rx mcg/actuation nasal allergies, congestion #16 grams spray,suspension atorvastatin 40 mg tablet 40 mg PO QHS CHOLESTEROL #90 tabs 08/21/23 09/19/24 Rx metformin 500 mg tablet 500 mg PO BID DIABETIC 1 month #60 12/12/23 09/19/24 Rx tabs sennosides 8.6 mg-docusate sodium 2 tab PO BID PRN constipation 10 01/23/24 09/19/24 Rx 50 mg tablet (Stool days #40 tabs Softener-Stimulant Laxative) albuterol sulfate 90 mcg/actuation 1 - 2 puff inhalation Q4H PRN 09/19/24 History aerosol inhaler Wheezing linaclotide 72 mcg capsule 72 mcg PO DAILY PRN irritable colo n 02/27/24 09/19/24 History (Linzess) oxycodone-acetaminophen 7.5 mg-325 1 tab PO BID pain 03/16/2409/19 History mg tablet gabapentin 100 mg capsule 600 mg PO TID pain 04/18/24 History metoclopramide HCl 10 mg tablet 10 mg PO Q8 PRN nausea/vomiting 09/19/24 History tamsulosin 0.4 mg capsule 0.4 mg PO DAILY BPH #90 caps 07/0809/19/24 Rx baclofen 5 mg tablet 5 mg PO BID PRN 07/18/24 09/19/24 History blood sugar diagnostic (FreeStyle #100 ea 07/18/24 09/19/24 Rx Lite Strips) blood-glucose meter (FreeStyle #1 ea 07/18/24 09/19/24 Rx Lite Meter kit) trazodone 100 mg tablet See Rx Instructions PO QHS sleep 0 08/29/24 09/19/24 Rx #90 tabs Have you fallen in the past year?: No PFSH Medical History (Updated 09/19/24 @ 13:[address] Marshall Bear MD) Thoracic spine pain Chills Right upper quadrant pain Left ankle pain Osteomyelitis Pain of left calf Foot pain Hyponatremia Vasovagal episode Pulse irregularity Bilirubinuria Contact with or exposure to other viral diseases Lumbosacral radiculopathy at L5 History of steroid therapy Smokeless tobacco use Tension headache Agent orange exposure Bilateral primary osteoarthritis of knee Wears hearing aid Cancer Alcohol use Diabetes Ambulates with cane Arthritis Prostate disease High cholesterol ( 08/21/23) Restless legs Back pain Injury of head and neck Syncope History of IBS Shortness of breath on exertion History of pain when walking History of echocardiogram History of stress test Cardiology follow-up encounter Tear of medial meniscus of right knee Fibromyalgia BPH w urinary obs/LUTS Left knee DJD Right knee DJD Fusion of spine, cervical region Chondromalacia, right knee Chondromalacia, left knee Chondromalacia of both patellae COVID-19 virus detected (11/19/20) Nonrheumatic aortic (valve) stenosis with insufficiency Opioid dependence Obesity Asthma Hyperlipemia Essential (primary) hypertension Atherosclerotic heart disease of [place] coronary artery without angina pectoris Type 2 diabetes mellitus Spondylosis of lumbosacral region without myelopathy or radiculopathy Spinal stenosis of lumbosacral region Radiculopathy of lumbosacral region Degeneration of intervertebral disc of lumbosacral region Arthropathy of cervical facet joint Degeneration of cervical disc without myelopathy Cervical spondylosis Surgical History Hx of laminectomy S/P laminectomy Status post discectomy for herniated nucleus pulposus History o (more content not included)... Normal [facility] Magnesiumon 09-19-2024 Magnesium [Mass/Vol] 2.0 mg/dL Normal 1.6-2.6 [facility] Comment on above: Performed By: #### L 100.0100, L500.4050, L501.9520, L501.6710, L509.7000, L501.9910, L501.5200, L501.9985, L101.9900, L506.1000 ####[facility] [address] [place], [address] PSA,Total - Annual Screenon 09-19-2024 PSA,TOT SCREEN 0.65 ng/mL Normal 0.00-4.00 [facility] Comment on above: Result Comment: This test was performed using the TPSA assay method for the [employer] chemistry system. Values obtained with different assay methods cannot be used interchangably. When changing PSA assays in the course of monitoring a patient, additional sequential testing should be carried out to confirm baseline values. Performed By: #### L 100.0100, L500.4050, L501.9520, L501.6710, L509.7000, L501.9910, L501.5200, L501.9985, L101.9900, L506.1000 ####[facility] [address] [place], [address] Procalcitoninon 09-19-2024 Procalcitonin 0.12 ng/mL High 0.00-0.09 [facility] Comment on above: Order Comment: Reaso n for Exam: Back pain, chills, fever Result Comment: A procalcitonin (PCT) level above 2.0 ng/mL on the [...] <2 ng/mL are obtained. Performed By: #### L 100.0100, L500.4050, L501.9520, L501.6710, L509.7000, L501.9910, L501.5200, L501.9985, L101.9900, L506.1000 ####[facility] [address] [facility], [address] Thoracic Spine 3 Viewson Thoracic Spine 3 Views [facility] Imaging Services [address] [place] [address] Thoracic Spine 3 Views MR#: [id number] Acct: [id number] Name: JARET BATES Rep #: [id number] : 1955 M 69 From: Beto Morgan DO PCP: Dr. Marshall Bear MD Status: REG CLI Study: Thoracic Spine 3 Views Date of Exam: 09/19/24 Exam# [id number] Ordering Dr: Marshall Bear MD PROCEDURE: THORACIC SPINE 3 VIEWS TECHNIQUE: 3 views of the thoracic spine. COMPARISON: None FINDINGS: Normal thoracic vertebral body heights. Mild multilevel disc space narrowing and endplate osteophytosis. Normal alignment. Paraspinal soft tissues are unremarkable. Mild anterior vertebral body osteophyte formation. Lower cervical spine anterior fusion hardware. RAD/Thoracic Spine 3 Views IMPRESSION: MILD DEGENERATIVE DISC DISEASE. No acute fracture or subluxation. Reading Location: [facility] CC: Dr. Marshall Bear MD Human Resources Administrator: Signed Normal [facility] Thyroid Stim Hormone (TSH)on 09-19-2024 TSH 1.220 uIU/mL Normal 0.358-3.740 [facility] Comment on above: Performed By: #### L 100.0100, L500.4050, L501.9520, L501.6710, L509.7000, L501.9910, L501.5200, L501.9985, L101.9900, L506.1000 ####[facility] [address] [place], [place], [id number] Vitamin D,25 Hydroxyon 09-19 Vitamin D 25-OH 31.5 ng/mL Normal [facility] Comment on above: Order Comment: Reaso n for Exam: Back pain, chills, fever Result Comment: Zita min D 25(OH) Status Range Deficiency <20 ng/mL (50nmol/L) Insufficiency 20 - 30 ng/mL (50 - 75 nmol/L) Sufficiency 30 - 100 ng/mL (75 - 250 nmol/L) Toxicity >100 ng/mL (>250 nmol/L) Performed By: #### L 100.0100, L500.4050, L501.9520, L501.6710, L509.7000, L501.9910, L501.5200, L501.9985, L101.9900, L506.1000 ####[facility] [address] [place], [place], [id number] Cerv Spine 4 or 5 Viewson Cerv Spine 4 or 5 Views [facility] Imaging Services [address] [place], [place] [phone] Cerv Spine 4 or 5 Views MR#: [id number] Acct: [id number] Name: JARET BATES Rep #: [id number] : 1955 M 69 From: Julio Treadwell DO PCP: Dr. Marshall Bear MD Status: DEP AMB Study: Cerv Spine 4 or 5 Views Date of Exam: 09/10/24 Exam# [id number] Ordering Dr: Imelda Andrade PROCEDURE: CERV SPINE 4 OR 5 VIEWS REASON FOR EXAM: Pain. Prior fusion TECHNIQUE: Neutral, flexed and extended lateral views of the cervical spine. COMPARISON: Prior report dated 05/06/2023. Images are unavailable FINDINGS: Curvature is within normal limits. Anterior fusion hardware seen at the C6-7 level, with intervertebral disc spacer device. Grade 1 anterolisthesis of C7 on T1, which is stable on flexion and extension views. There is grade 1 anterolisthesis of C3 on C4 and C4 on C5 seen on the flexion view, which normalizes on neutral and extension views. No acute cervical spine fractures or dislocations are identified. There is mild intervertebral disc space height loss seen at the C7-T1 level. Remaining intervertebral disc spaces appear relatively well preserved. No prevertebral soft tissue swelling is seen. Prior sternotomy. Visualized lung apices are clear. Trace vascular calcifications within the carotid arteries. RAD/Cerv Spine 4 or 5 Views IMPRESSION: 1. Anterior fusion hardware seen at the C6-7 levels, with intervertebral disc spacer device. Negative for hardware failure. 2. Grade 1 anterolisthesis of C3 on C4 and C4 on C5 seen on the flexion view, which normalizes on the neutral and extension views. 3. No acute cervical spine fractures or dislocations are identified. 4. Additional findings, as detailed above [facility] CC: TAE Proctor; Dr. Marshall Bear MD Human Resources Administrator: Signed Normal [facility] Orthopedic Visit Reporton Orthopedic Visit Report [facility] [address] [place] [address] OFFICE VISIT Date of Service: 09/10/24 MR#: [id number] Acct: [id number] Name: JARET BATES Rep #: [id number] : 1955 Provider: TAE Proctor Age/Sex: 69/M Location: [facility] Status: Signed Intake Vital Signs 07/18/24 13:21 Height 5 ft 10 in Intake Visit Reasons: CERVICAL SPINE Chief Complaint: Cervical Spine Pain/Concerns Accompanied by: Is patient in pain?: Yes Pain scale (1-10): 5 Allergies adhesive tape Allergy (Verified 09/10/24 09:44) Rash sertraline (From Zoloft) Adverse Reaction (Verified 09/10/24 09:44) Unknown Medications ???Medication ???Instructions ???Recorded ???Confirmed ???Type multivitamin 1 tab PO DAILY supplement 07/09/19 09/10/24 History handicap placard #1 ea 04/21/22 09/10/24 Rx fluticasone propionate 50 1 - 2 spray intranasal BID PRN 04/27/23 09/10/24 Rx mcg/actuation nasal allergies, congestion #16 grams spray,suspension atorvastatin 40 mg tablet 40 mg PO QHS CHOLESTEROL #90 tabs 08/21/23 09/10/24 Rx metformin 500 mg tablet 500 mg PO BID DIABETIC 1 month #60 12/12/23 09/10/24 Rx tabs sennosides 8.6 mg-docusate sodium 2 tab PO BID PRN constipation 10 01/23/24 09/10/24 Rx 50 mg tablet (Stool days #40 tabs Softener-Stimulant Laxative) albuterol sulfate 90 mcg/actuation 1 - 2 puff inhalation Q4H PRN 01/31/24 09/10/24 History aerosol inhaler Wheezing linaclotide 72 mcg capsule 72 mcg PO DAILY PRN irritable colon 02/27/24 09/10/24 History (Linzess) oxycodone-acetaminophen 7.5 mg-325 1 tab PO BID pain 03/16/24 09/10/24 History mg tablet gabapentin 100 mg capsule 600 mg PO TID pain 04/18/24 09/10/24 History metoclopramide HCl 10 mg tablet 10 mg PO Q8 PRN nausea/vomiting 05/15/24 09/10/24 History tamsulosin 0.4 mg capsule 0.4 mg PO DAILY BPH #90 caps 07/08/24 09/10/24 Rx baclofen 5 mg tablet 5 mg PO BID PRN 07/18/24 09/10/24 History blood sugar diagnostic (FreeStyle #100 ea 07/18/24 09/10/24 Rx Lite Strips) blood-glucose meter (FreeStyle #1 ea 07/18/24 09/10/24 Rx Lite Meter kit) trazodone 100 mg tablet See Rx Instructions PO QHS sleep 08/29/24 09/10/24 Rx #90 tabs Have you fallen in the past year?: Yes PFSH Medical History Right upper quadrant pain Left ankle pain Osteomyelitis Pain of left calf Foot pain Hyponatremia Vasovagal episode Pulse irregularity Bilirubinuria Contact with or exposure to other viral diseases Lumbosacral radiculopathy at L5 History of steroid therapy Smokeless tobacco use Tension headache Agent orange exposure Bilateral primary osteoarthritis of knee Wears hearing aid Cancer Alcohol use Diabetes Ambulates with cane Arthritis Prostate disease High cholesterol ( 08/21/23) Restless legs Back pain Injury of head and neck Syncope History of IBS Shortness of breath on exertion History of pain when walking History of echocardiogram History of stress test Cardiology follow-up encounter Tear of medial meniscus of right knee Fibromyalgia BPH w urinary obs/LUTS Left knee DJD Right knee DJD Fusion of spine, cervical region Chondromalacia, right knee Chondromalacia, left knee Chondromalacia of both patellae COVID-19 virus detected (11/19/20) Nonrheumatic aortic (valve) stenosis with insufficiency Opioid dependence Obesity Asthma Hyperlipemia Essential (primary) hypertension Atherosclerotic heart disease of [place] coronary artery without angina pectoris Type 2 diabetes mellitus Spondylosis of lumbosacral region without myelopathy or radiculopathy Spinal stenosis of lumbosacral region Radiculopathy of lumbosacral region Degeneration of intervertebral disc of lumbosacral region Arthropathy of cervical facet joint Degeneration of cervical disc without myelopathy Cervical spondylosis Surgical History Hx of laminectomy S/P laminectomy Status post discectomy for herniated nucleus pulposus History of lateral meniscus repair of right knee ( 2022) Hx laparoscopic cholecystectomy ( 11/2022) Hx of bilateral cataract extraction H/O cervical spine surgery (08/2020) History of herniorrhaphy History of carpal tunnel release History of back surgery History of left heart catheterization (09/09/11) H/O coronary artery bypass surgery (09/14/11) Family History Brother Heart disease Myocardial infarction 60's CAD (coronary artery disease) Father Myocardial infarction 65 CAD (coronary artery disease) Mother HLD (hyperlipidemia) when son was 16 following MVA, healthy aside HLD. Social History (more content not included)... Normal [facility] Lower Ext Joint Only (Routin e)on 08-09-2024 Lower Ext Joint Only (Routine) [facility] Imaging Services [address] [place] [address] Lower Ext Joint Only (Routine) MR#: [id number] Acct: [id number] Name: JARET BATES Rep #: [id number] : 1955 M 69 From: Jose Juan Jerry MD PCP: Dr. Marshall Bear MD Status: REG CLI Study: Lower Ext Joint Only (Routine) Date of Exam: 10/10/23 Exam# [id number] Ordering Dr: Julio Daniel Eula [id number] STUDY: MRI LEFT ANKLE WITHOUT CONTRAST REASON FOR EXAM: Male, 69 years old. CHARCOT FOOT TECHNIQUE: Standardized fat and water weighted pulse sequences were obtained in all 3 orthogonal planes. COMPARISON: X-ray 06/20/2024 FINDINGS: Normal subcutis adipose space. Normal posterior tibialis tendon. Normal flexor digitorum longus tendon. Normal flexor hallucis longus tendon. Normal peroneus longus and brevis tendons. Normal tibialis anterior tendon. Normal extensor hallucis longus tendon. Normal extensor digitorum longus tendons. Normal Achilles tendon and teno-osseous insertion. Normal plantar fascia. Normal plantar calcaneal tubercles. Normal intrinsic muscles of the rearfoot. Normal distal tibiofibular syndesmotic ligamentous complex. Normal lateral ligamentous complex. Normal subtalar ligaments and sinus tarsi. Normal deltoid ligamentous complexes. Normal plantar calcaneonavicular (spring) ligament. There is a joint effusion of the tibiotalar articulation with capsular distension. 5 mm os trigonum. Normal talar dome. Normal subtalar articulations. Normal talonavicular articulation. Normal calcaneocuboid articulation. Normal navicular-cuneiform articulations. MRI/Lower Ext Joint Only (Routine) IMPRESSION: Normal MRI of the ankle and rearfoot. Electronically Signed: Jose Juan Jerry MD at 16:55 EST , CC: JUSTIN Daniel; Dr. Marshall Bear MD Human Resources Administrator: Signed Normal [facility] Lower Ext/No Jt/w/oon 2023 Lower Ext/No Jt/w/o [facility] Imaging Services [address] [place] [address] Lower Ext/No Jt/w/o MR#: [id number] Acct: [id number] Name: JARET BATES Rep #: [id number] : 1955 M 69 From: Constantino gil DO PCP: Dr. Marshall Bear MD Status: REG CLI Study: Lower Ext/No Jt/w/o Date of Exam: 08/09/24 Exam# [id number] Ordering Dr: Julio Daniel DPEula [id number] EXAM: MR LEFT LOWER EXTREMITY WITHOUT INTRAVENOUS CONTRAST, FOOT CLINICAL INDICATION: CHARCOT FOOT TECHNIQUE: Multiplanar and multisequence MR images of the left foot without intravenous contrast. COMPARISON: Ankle on MRI on the same date. FINDINGS: LIGAMENTS: No significant abnormality. TENDONS: No significant abnormality. MUSCLES: No significant abnormality. No edema or myositis. FLUID: Small ganglion or joint effusion associated with the talonavicular joint is partially visualized extending along the dorsal margin of the joint space measuring approximately 7 mm. BONES/JOINTS: First metatarsal phalangeal joint arthrosis. Mild diffuse midfoot arthrosis with dorsal midfoot spurring. Normal forefoot alignment. No fracture. No bone marrow edema. OTHER SOFT TISSUES: No significant abnormality. MRI/Lower Ext/No Jt/w/o IMPRESSION: 1. Small ganglion or joint effusion associated with the talonavicular joint is partially visualized extending along the dorsal margin of the joint space measuring approximately 7 mm. 2. Degenerative changes. No evidence of osteomyelitis or other acute pathology. Electronically Signed: Constantino Briscoe, at 8:42 EST , CC: DPEula Daniel; Dr. Marshall Bear MD Human Resources Administrator: Signed Normal [facility] Abdomen WITH ORAL Cont Onlyo n 07-23-2024 Abdomen WITH ORAL Cont Only [facility] Imaging Services [address] [place], [place] [id number] Abdomen WITH ORAL Cont Only MR#: [id number] Acct: [id number] Name: JARET BATES Rep #: [id number] : 1955 M 69 From: Jose Juan Jerry MD PCP: Dr. Marshall Bear MD Status: REG CLI Study: Abdomen WITH ORAL Cont Only Date of Exam: 07/14 Exam# [id number] Ordering Dr: Marshall Bear MD [id number] STUDY: CT ABDOMEN WITH CONTRAST REASON FOR EXAM: Male, 69 years old. Right upper abdominal pain RADIATION DOSAGE (If Supplied By Facility): CTDIvol = ( 8.87 ) mGy, DLP = ( 321.35 ) mGycm TECHNIQUE: Transaxial images were obtained post I.V. administration of Oral Readi-CAT, and oral contrast. Sagittal and coronal images were reconstructed. Individualized dose optimization techniques were used for this CT. COMPARISON: 09/12/2022 FINDINGS: The visualized lung bases are unremarkable. The visualized portions of the heart are within normal limits. Normal liver. There is non-visualization of the gallbladder, which may be secondary to either contraction or a prior cholecystectomy. Normal spleen. Normal pancreas. Normal bilateral adrenal glands. Normal right kidney. Normal left kidney. Normal visualized stomach. Normal small intestine. Normal colon. The appendix is visualized and appears normal. There is diffuse atherosclerotic calcification of the abdominal aorta, without a demonstrated aneurysm. Normal inferior vena cava. Normal retroperitoneum. Normal abdominal wall. Mild levoscoliosis of the lumbar spine with degenerative disc disease. Status post transpedicular fixation in the lower lumbar spine. CT/Abdomen WITH ORAL Cont Only IMPRESSION: Normal enhanced CT of the abdomen. Electronically Signed: Jose Juan Jerry MD at 9:37 EST , CC: Dr. Marshall Bear MD Human Resources Administrator: Signed Normal [facility] CBC W/Diff, Automatedon 12-0 Absolute Lymph 1.41 X10 3/uL Normal 0.83-4.51 [facility] Comment on above: Performed By: #### L 500.4050, L501.2450, L300.8000, L100.0100 ####[facility] [address] [place], [address] Absolute Neut 2.5 X10 3/uL Normal 2.0-7.7 [facility] Comment on above: Performed By: #### L 500.4050, L501.2450, L300.8000, L100.0100 ####[facility] [address] [place], [address] Basophils/100 WBC (Bld) 0.9 % Normal 0-1 [facility] Comment on above: Performed By: #### L 500.4050, L501.2450, L300.8000, L100.0100 ####[facility] [address] [place], [address] Eosinophils/100 WBC (Bld) 4.6 % Normal 0-5 [facility] Comment on above: Performed By: #### L 500.4050, L501.2450, L300.8000, L100.0100 ####[facility] [address] [place], [address] Erythrocyte distribution width (RBC) [Ratio] 13.0 % Normal 11.6-14.6 [facility] Comment on above: Performed By: #### L 500.4050, L501.2450, L300.8000, L100.0100 ####[facility] [address] [place], [address] Hematocrit (Bld) [Volume fraction] 35.0 % Low 40-54 [facility] Comment on above: Performed By: #### L 500.4050, L501.2450, L300.8000, L100.0100 ####[facility] [address] [place], [address] Hemoglobin (Bld) [Mass/Vol] 10.8 g/dL Low 13.0-16.5 [facility] Comment on above: Performed By: #### L 500.4050, L501.2450, L300.8000, L100.0100 ####[facility] [address] [place], [address] IG% 0.200 Normal 0.0-0.9 [facility] Comment on above: Result Comment: IG% - Immature Granulocytes (promyelocytes, myelocytes and metamyelocytes) > 1% indicates that a LEFT SHIFT is Present. Performed By: #### L 500.4050, L501.2450, L300.8000, L100.0100 ####[facility] [address] [place], [address] Lymphocytes/100 WBC (Bld) 30.6 % Normal 19-41 [facility] Comment on above: Performed By: #### L 500.4050, L501.2450, L300.8000, L100.0100 ####[facility] [address] [place], [address] MCH (RBC) [Entitic mass] 28.6 pg Normal 27.0-32.0 [facility] Comment on above: Performed By: #### L 500.4050, L501.2450, L300.8000, L100.0100 ####[facility] [address] [place], [address] MCHC (RBC) [Mass/Vol] 30.9 g/dL Low 32-36 [facility] Comment on above: Performed By: #### L 500.4050, L501.2450, L300.8000, L100.0100 ####[facility] [address] [place], [address] MCV (RBC) [Entitic vol] 92.8 fL Normal 80-94 [facility] Comment on above: Performed By: #### L 500.4050, L501.2450, L300.8000, L100.0100 ####[facility] [address] [place], [address] Monocytes/100 WBC (Bld) 9.5 % Normal 0-10 [facility] Comment on above: Performed By: #### L 500.4050, L501.2450, L300.8000, L100.0100 ####[facility] [address] [place], [address] Neutrophils/100 WBC (Bld) 54.2 % Normal 47-70 [facility] Comment on above: Performed By: #### L 500.4050, L501.2450, L300.8000, L100.0100 ####[facility] [address] [place], [address] Nucleated RBC (Bld) [#/Vol] 0 10*3/uL Normal 0-5 [facility] Comment on above: Performed By: #### L 500.4050, L501.2450, L300.8000, L100.0100 ####[facility] [address] [place], [address] Platelet mean volume (Bld) [Entitic vol] 9.0 fL Normal 6.2-12.0 [facility] Comment on above: Performed By: #### L 500.4050, L501.2450, L300.8000, L100.0100 ####[facility] [address] [place], [address] Platelets (Bld) [#/Vol] 222 10*3/uL Normal 150-450 [facility] Comment on above: Performed By: #### L 500.4050, L501.2450, L300.8000, L100.0100 ####[facility] [address] [place], [address] RBC (Bld) [#/Vol] 3.77 10*6/uL Low 4.6-6.2 [facility] Comment on above: Performed By: #### L 500.4050, L501.2450, L300.8000, L100.0100 ####[facility] [address] [place], [address] RDW SD 44.4 fl High 35.1-43.9 [facility] Comment on above: Performed By: #### L 500.4050, L501.2450, L300.8000, L100.0100 ####[facility] [address] [place], [address] WBC (Bld) [#/Vol] 4.6 10*3/uL Normal 4.4-11.0 [facility] Comment on above: Performed By: #### L 500.4050, L501.2450, L300.8000, L100.0100 ####[facility] [address] [place], [address] Comprehensive Metabolic Prof caon 07-19-2024 Albumin [Mass/Vol] 3.5 g/dL Normal 3.2-5.0 [facility] Comment on above: Performed By: #### L 500.4050, L501.2450, L300.8000, L100.0100 ####[facility] [address] [place], [address] Albumin/Globulin [Mass ratio] 1.2 {ratio} Normal 0.9-2.4 [facility] Comment on above: Performed By: #### L 500.4050, L501.2450, L300.8000, L100.0100 ####[facility] [address] [place], [address] ALK P 90 U/L Normal 45-117 [facility] Comment on above: Performed By: #### L 500.4050, L501.2450, L300.8000, L100.0100 ####[facility] [address] [place], [address] ALT [Catalytic activity/Vol] 22 U/L Normal 16-61 [facility] Comment on above: Performed By: #### L 500.4050, L501.2450, L300.8000, L100.0100 ####[facility] [address] [place], [address] AST [Catalytic activity/Vol] 19 U/L Normal 15-37 [facility] Comment on above: Performed By: #### L 500.4050, L501.2450, L300.8000, L100.0100 ####[facility] [address] [place], [address] Bilirubin [Mass/Vol] 0.70 mg/dL Normal 0.20-1.00 [facility] Comment on above: Result Comment: For patients on eltrombopag therapy, use of Dimension [place] TBIL is not recommended. Performed By: #### L 500.4050, L501.2450, L300.8000, L100.0100 ####[facility] [address] [place], [address] BUN/CRE 20.7 RATIO High 10-20 [facility] Comment on above: Performed By: #### L 500.4050, L501.2450, L300.8000, L100.0100 ####[facility] [address] [place], [address] CA,Total 9.0 mg/dL Normal 8.5-10.1 [facility] Comment on above: Performed By: #### L 500.4050, L501.2450, L300.8000, L100.0100 ####[facility] [address] [place], [address] Chloride [Moles/Vol] 110 mmol/L High 98-107 [facility] Comment on above: Performed By: #### L 500.4050, L501.2450, L300.8000, L100.0100 ####[facility] [address] [place], [address] CO2 [Moles/Vol] 28.0 mmol/L Normal 21.0-32.0 [facility] Comment on above: Performed By: #### L 500.4050, L501.2450, L300.8000, L100.0100 ####[facility] [address] [place], [address] Creatinine [Mass/Vol] 1.21 mg/dL Normal 0.70-1.30 [facility] Comment on above: Result Comment: The validity of the calculated GFR GFRAA in patients over 70 years has not been determined. Clinical correlation is essential. Performed By: #### L 500.4050, L501.2450, L300.8000, L100.0100 ####[facility] [address] [place], [address] EST GFR - AA 76 mL/min Normal >60 [facility] Comment on above: Result Comment: Afri can [place] GFR Calc Performed By: #### L 500.4050, L501.2450, L300.8000, L100.0100 ####[facility] [address] [place], [address] GAP 5 Normal 5-15 [facility] Comment on above: Performed By: #### L 500.4050, L501.2450, L300.8000, L100.0100 ####[facility] [address] [place], [address] GFR/1.73 sq M.predicted among non-blacks MDRD (S/P/Bld) [Vol rate/Area] 63 mL/min/{1.73_m2} Normal >60 [facility] Comment on above: Result Comment: Non- GFR Calc Performed By: #### L 500.4050, L501.2450, L300.8000, L100.0100 ####[facility] [address] [place], [address] Globulin (S) [Mass/Vol] 3.0 g/dL Normal 2.2-4.2 [facility] Comment on above: Performed By: #### L 500.4050, L501.2450, L300.8000, L100.0100 ####[facility] [address] [place], [address] Glucose [Mass/Vol] 93 mg/dL Normal 74-106 [facility] Comment on above: Performed By: #### L 500.4050, L501.2450, L300.8000, L100.0100 ####[facility] [address] [place], [address] Potassium [Moles/Vol] 3.9 mmol/L Normal 3.5-5.1 [facility] Comment on above: Performed By: #### L 500.4050, L501.2450, L300.8000, L100.0100 ####[facility] [address] [place], [address] Sodium [Moles/Vol] 142 mmol/L Normal 136-145 [facility] Comment on above: Performed By: #### L 500.4050, L501.2450, L300.8000, L100.0100 ####[facility] [address] [place], [address] T PROT 6.5 g/dL Normal 6.4-8.2 [facility] Comment on above: Performed By: #### L 500.4050, L501.2450, L300.8000, L100.0100 ####[facility] [address] [place], [address] Urea nitrogen [Mass/Vol] 25 mg/dL High 7-18 [facility] Comment on above: Performed By: #### L 500.4050, L501.2450, L300.8000, L100.0100 ####[facility] [address] [place], [address] D-Dimer Quantitative (DVT/PE )on 07-19-2024 D-DIMER QUANT 0.72 FEU/ug/m Invalid Interpretation Code 0.27-0.49 [facility] Comment on above: Result Comment: D-Di franky ELEVATED (>0.49): Additional studies and clinical assessments are indicated to conclude diagnosis of: Deep Vein Thrombosis (DVT) or Pulmonary Embolism (PE) Performed By: #### L 500.4050, L501.2450, L300.8000, L100.0100 ####[facility] [address] [place], [address] Lipaseon 07-19-2024 Lipase [Catalytic activity/Vol] 31 U/L Normal 13-75 [facility] Comment on above: Result Comment: Plea se note: LIPASE revised reference range effective 22. New Lipase methodology. Expected to produce lower values than the previous assay method. NEW Reference Range: 13 - 75 U/L Performed By: #### L 500.4050, L501.2450, L300.8000, L100.0100 ####[facility] [address] [place], [address] MR/BMS.IMBon 07-18-2024 MR/BMS.IMB [facility] [address] [place] [address] OFFICE VISIT Date of Service: 07/18/24 MR#: [id number] Acct: [id number] Name: JARET BATES Rep #: [id number] : 1955 Provider: Dr. Marshall perez MD Age/Sex: 69/M Location: [facility] Status: Signed Intake Vital Signs 05/15/24 15:01 07/17/24 08:59 07/18/24 13:21 Height 5 ft 10 in 5 ft 10 in 5 ft 10 in Weight: 186 lb 4 oz BMI 26.7 BP 132/78 H Blood Pressure Location Lt brachial Position Sitting Respiration 16 Pulse 57 L Pulse Source Monitor Temp 97.8 F Temp Source Temporal Pulse Oximetry (%) 97 Oxygen Delivery Method room air Intake Visit Reasons: Lower Rt Side Abdomen Pain Chief Complaint: lower rt side abdomen pain 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 Accompanied by: Is patient in pain?: Yes (R side abdomen) Pain scale (1-10): 3 Allergies adhesive tape Allergy (Verified 07/18/24 13:09) Rash sertraline (From Zoloft) Adverse Reaction (Verified 07/18/24 13:09) Unknown Medications ???Medication ???Instructions ???Recorded ???Confirmed ???Type multivitamin 1 tab PO DAILY supplement 07/09/19 07/18/24 History handicap placard #1 ea 04/21/22 07/18/24 Rx fluticasone propionate 50 1 - 2 spray intranasal BID PRN 04/27/23 07/18/24 Rx mcg/actuation nasal allergies, congestion #16 grams spray,suspension atorvastatin 40 mg tablet 40 mg PO QHS CHOLESTEROL #90 tabs 08/21/23 07/18/24 Rx trazodone 50 mg tablet 50 - 100 mg (1 - 2 x 50 mg) PO QHS 08/21/23 07/18/24 Rx sleep #90 tabs metformin 500 mg tablet 500 mg PO BID DIABETIC 1 month #60 12/12/23 07/18/24 Rx tabs sennosides 8.6 mg-docusate sodium 2 tab PO BID PRN constipation 10 01/23/24 07/18/24 Rx 50 mg tablet (Stool days #40 tabs Softener-Stimulant Laxative) albuterol sulfate 90 mcg/actuation 1 - 2 puff inhalation Q4H PRN 01/31/24 07/18/24 History aerosol inhaler Wheezing linaclotide 72 mcg capsule 72 mcg PO DAILY PRN irritable colon 02/27/24 07/18/24 History (Linzess) oxycodone-acetaminophen 7.5 mg-325 1 tab PO BID pain 03/16/24 07/18/24 History mg tablet doxycycline hyclate 100 mg capsule 100 mg PO BID osteomyelitis 30 03/20/24 07/18/24 Rx days #60 caps gabapentin 100 mg capsule 600 mg PO TID pain 04/18/24 07/18/24 History metoclopramide HCl 10 mg tablet 10 mg PO Q8 PRN nausea/vomiting 05/15/24 07/18/24 History tamsulosin 0.4 mg capsule 0.4 mg PO DAILY BPH #90 caps 07/08/24 07/18/24 Rx baclofen 5 mg tablet 5 mg PO BID PRN 07/18/24 07/18/24 History blood sugar diagnostic (FreeStyle #100 ea 07/18/24 Rx Lite Strips) blood-glucose meter (FreeStyle #1 ea 07/18/24 Rx Lite Meter kit) Have you fallen in the past year?: Yes (03/2024) [facility] Medical History (Updated 07/18/24 @ 14:[address] Marshall Bear MD) Right upper quadrant pain Left ankle pain Osteomyelitis Pain of left calf Foot pain Hyponatremia Vasovagal episode Pulse irregularity Bilirubinuria Contact with or exposure to other viral diseases Lumbosacral radiculopathy at L5 History of steroid therapy Smokeless tobacco use Tension headache Agent orange exposure Bilateral primary osteoarthritis of knee Wears hearing aid Cancer Alcohol use Diabetes Ambulates with cane Arthritis Prostate disease High cholesterol ( 08/21/23) Restless legs Back pain Injury of head and neck Syncope History of IBS Shortness of breath on exertion History of pain when walking History of echocardiogram History of stress test Cardiology follow-up encounter Tear of medial meniscus of right knee Fibromyalgia BPH w urinary obs/LUTS Left knee DJD Right knee DJD Fusion of spine, cervical region Chondromalacia, right knee Chondromalacia, left knee Chondromalacia of both patellae COVID-19 virus detected (11/19/20) Nonrheumatic aortic (valve) stenosis with insufficiency Opioid dependence Obesity Asthma Hyperlipemia Essential (primary) hypertension Atherosclerotic heart disease of [place] coronary artery without angina pectoris Type 2 diabetes mellitus Spondylosis of lumbosacral region without myelopathy or radiculopathy Spinal stenosis of lumbosacral region Radiculopathy of lumbosacral region Degeneration of intervertebral disc of lumbosacral region Arthropathy of cervical facet joint Degeneration of cervical disc without myelopathy Cervical spondylosis Surgical History Hx of laminectomy S/P laminectomy Status post discectomy for herniated nucleus pulposus History of lateral meniscus repair of right knee ( 2021) Hx laparoscopic cholecystectomy ( 11/2022) Hx of bilateral cataract extraction H/O cervical spine surgery (08/2020) History of herniorrhaphy History of carpal tunnel release History of back s (more content not included)... Normal [facility] Orthopedic Visit Reporton Orthopedic Visit Report [facility] [address] [place] [address] OFFICE VISIT Date of Service: 07/02/24 MR#: [id number] Acct: [id number] Name: JARET BATES Rep #: [id number] : 1955 Provider: Dr. Bjorn Bradshaw MD Age/Sex: 69/M Location[facility] Status: Signed Intake Vital Signs 05/15/24 15:01 Height 5 ft 10 in Intake Visit Reasons: LUMBAR SPINE Allergies adhesive tape Allergy (Verified 07/02/24 14:31) Rash sertraline (From Zoloft) Adverse Reaction (Verified 07/02/24 14:31) Unknown Medications ???Medication ???Instructions ???Recorded ???Confirmed ???Type multivitamin 1 tab PO DAILY supplement 07/09/19 07/02/24 History handicap placard #1 ea 04/21/22 07/02/24 Rx blood sugar diagnostic (FreeStyle #100 ea 09/15/22 07/02/24 Rx Lite Strips) blood-glucose meter (FreeStyle #1 ea 09/15/22 07/02/24 Rx Lite Meter kit) fluticasone propionate 50 1 - 2 spray intranasal BID PRN 04/27/23 07/02/24 Rx mcg/actuation nasal allergies, congestion #16 grams spray,suspension atorvastatin 40 mg tablet 40 mg PO QHS CHOLESTEROL #90 tabs 08/21/23 07/02/24 Rx trazodone 50 mg tablet 50 - 100 mg (1 - 2 x 50 mg) PO QHS 08/21/23 07/02/24 Rx sleep #90 tabs metformin 500 mg tablet 500 mg PO BID DIABETIC 1 month #60 12/12/23 07/02/24 Rx tabs sennosides 8.6 mg-docusate sodium 2 tab PO BID PRN constipation 10 01/23/24 07/02/24 Rx 50 mg tablet (Stool days #40 tabs Softener-Stimulant Laxative) albuterol sulfate 90 mcg/actuation 1 - 2 puff inhalation Q4H PRN 01/31/24 07/02/24 History aerosol inhaler Wheezing linaclotide 72 mcg capsule 72 mcg PO DAILY PRN irritable colon 02/27/24 07/02/24 History (Linzess) oxycodone-acetaminophen 7.5 mg-325 1 tab PO BID pain 03/16/24 07/02/24 History mg tablet tamsulosin 0.4 mg capsule 0.4 mg PO DAILY BPH 03/16/24 07/02/24 History doxycycline hyclate 100 mg capsule 100 mg PO BID osteomyelitis 30 03/20/24 07/02/24 Rx days #60 caps gabapentin 100 mg capsule 600 mg PO TID pain 04/18/24 07/02/24 History metoclopramide HCl 10 mg tablet 10 mg PO Q8 PRN nausea/vomiting 05/15/24 07/02/24 History Have you fallen in the past year?: No PFSH Medical History Left ankle pain Osteomyelitis Pain of left calf Foot pain Hyponatremia Vasovagal episode Pulse irregularity Bilirubinuria Contact with or exposure to other viral diseases Lumbosacral radiculopathy at L5 History of steroid therapy Smokeless tobacco use Tension headache Agent orange exposure Bilateral primary osteoarthritis of knee Wears hearing aid Cancer Alcohol use Diabetes Ambulates with cane Arthritis Prostate disease High cholesterol ( 08/21/23) Restless legs Back pain Injury of head and neck Syncope History of IBS Shortness of breath on exertion History of pain when walking History of echocardiogram History of stress test Cardiology follow-up encounter Tear of medial meniscus of right knee Fibromyalgia BPH w urinary obs/LUTS Left knee DJD Right knee DJD Fusion of spine, cervical region Chondromalacia, right knee Chondromalacia, left knee Chondromalacia of both patellae COVID-19 virus detected (11/19/20) Nonrheumatic aortic (valve) stenosis with insufficiency Opioid dependence Obesity Asthma Hyperlipemia Essential (primary) hypertension Atherosclerotic heart disease of [place] coronary artery without angina pectoris Type 2 diabetes mellitus Spondylosis of lumbosacral region without myelopathy or radiculopathy Spinal stenosis of lumbosacral region Radiculopathy of lumbosacral region Degeneration of intervertebral disc of lumbosacral region Arthropathy of cervical facet joint Degeneration of cervical disc without myelopathy Cervical spondylosis Surgical History Hx of laminectomy S/P laminectomy Status post discectomy for herniated nucleus pulposus History of lateral meniscus repair of right knee ( 2021) Hx laparoscopic cholecystectomy ( 11/2022) Hx of bilateral cataract extraction H/O cervical spine surgery (08/2020) History of herniorrhaphy History of carpal tunnel release History of back surgery History of left heart catheterization (09/09/11) H/O coronary artery bypass surgery (09/14/11) Family History Brother Heart disease Myocardial infarction 60's CAD (coronary artery disease) Father Myocardial infarction 65 CAD (coronary artery disease) Mother HLD (hyperlipidemia) when son was 16 following MVA, healthy aside HLD. Social History household members: spouse Smoking Status: (more content not included)... Normal [facility] Ankle min 3 Viewson 06-20-20 Ankle min 3 Views [facility] Imaging Services [address] [place] [address] [id number] Ankle min 3 Views MR#: [id number] Acct: [id number] Name: JARET BATES Rep #: [id number] : 1955 M 69 From: Arnav cao MD PCP: Dr. Marshall Bear MD Status: REG CLI Study: Ankle min 3 Views Date of Exam: 06/20/24 Exam# [id number] Ordering Dr: Marshall Bear MD [id number] STUDY: X-RAY - LEFT ANKLE REASON FOR EXAM: Male, 69 years old. Left ankle pain, left lower extremity pain TECHNIQUE: 3 view(s) of the ankle. COMPARISON: None. FINDINGS: No demonstrated acute fracture or displaced bony fragments. Moderate atherosclerotic calcifications are present. Normal visualized distal tibia and fibula. Normal medial and lateral malleoli. Normal tibiotalar articulation and ankle mortise. Normal visualized talus and calcaneus. The visualized subtalar, talonavicular, calcaneocuboid and tarsal articulations are normal. The soft tissue structures are unremarkable. RAD/Ankle min 3 Views IMPRESSION: 1. No demonstrated acute fracture or displaced bony fragments. Moderate atherosclerotic calcifications are present. Electronically Signed: Arnav Nobles MD at 12:31 EST Reading Location ID and State: [facility] / [place] , Service support , CC: Dr. Marshall Bear MD Human Resources Administrator: Signed Normal [facility] CREATININE FINGERSTICKon CREATININE WB < 1.0 Normal 0.70-1.30 [facility] Comment on above: Performed By: #### L 9100.0200 ####[facility] [address] [place], [place], [address] EGFR WB > 60.0000 Normal >60 [facility] Comment on above: Performed By: #### L 9100.0200 ####[facility] [address] [place], [address] Spine Lumbar W/WO Contraston 06-20-2024 Spine Lumbar W/WO Contrast [facility] Imaging Services [address] [place] [address] Spine Lumbar W/WO Contrast MR#: [id number] Acct: [id number] Name: JARET BATES Rep #: [id number] : 1955 M 69 From: Dontrell Tran MD PCP: Dr. Marshall Bear MD Status: REG CLI Study: Spine Lumbar W/WO Contrast Date of Exam: 03/06 Exam# [id number] Ordering Dr: Bjorn Bradshaw MD [id number] EXAM: MR LUMBAR SPINE WITHOUT AND WITH INTRAVENOUS CONTRAST CLINICAL INDICATION: pain, H/O POST OP INFECTION X 11 MONTHS TECHNIQUE: Multiplanar and multisequence MR images of the lumbar spine without and with intravenous contrast. CONTRAST: IV 17 cc Clariscan COMPARISON: MR Lumbar Spine dated 03/18/2024 FINDINGS: VERTEBRAE: Surgical changes of L4-5 disc implantation with interpedicular screw fixation of L4 on L5 again seen. L3 and L4 laminectomy. SPINAL CORD: Normal. Normal position and signal intensity of the conus medullaris. SOFT TISSUES: No abnormal contrast enhancement of the intraspinal and paraspinal soft tissues. DISCS/SPINAL CANAL/NEURAL FORAMINA: L1-L2: Stable mild disc space narrowing. No disc protrusion. Normal caliber spinal canal and neural foramina. L2-L3: Prominent disc space narrowing. No disc protrusion. Localized thickening of the posterior longitudinal ligament without significant spinal stenosis. Prominent neural foraminal narrowing on the right related to bony hypertrophy and scoliosis. Mild to moderate narrowing of the left neural foramen related to the disc space narrowing. L3-L4: Prominent disc space narrowing. Associated Modic type II endplate changes. Prominent anterior osteophytosis. Right paracentral disc osteophyte prominence and facet arthropathy results in marked narrowing of the right neural foramen. No significant spinal stenosis. L4-L5: Disc implant in place with interpedicular screw fixation of L4 and L5. No disc herniation. No spinal stenosis. Persistent marked narrowing of the neural foramina related to vertebral body and facet hypertrophy. L5-S1: L5-S1 No disc herniation or spinal stenosis. Moderate narrowing of the left neural foramen related to facet hypertrophy. Intact right neural foramen. MRI/Spine Lumbar W/WO Contrast IMPRESSION: 1. Stable multilevel degenerative change. 2. Improving endplate edema at the L4-5 level. 3. No significant spinal stenosis. 4. Multilevel neural foraminal narrowing as described. Electronically Signed: Dontrell Tran MD at 13:58 EST , CC: Dr. Bjorn Bradshaw MD; Dr. Marshall Bear MD Human Resources Administrator: Signed Normal [facility] Tibia Fibula 2 Viewson 06-20 Tibia Fibula 2 Views [facility] Imaging Services [address] [place] [address] Tibia Fibula 2 Views MR#: [id number] Acct: [id number] Name: JARET BATES Rep #: [id number] : 1955 M 69 From: Rubin Maddox MD PCP: Dr. Marshall Bear MD Status: REG CLI Study: Tibia Fibula 2 Views Date of Exam: 06/20/24 Exam# [id number] Ordering Dr: Marshall Bear MD [id number] STUDY: X-RAY - LEFT TIBIA AND FIBULA REASON FOR EXAM: Male, 69 years old. Lower extremity pain. TECHNIQUE: 2 view(s) of the tibia and fibula were obtained on 4 images. COMPARISON: None. FINDINGS: Osteopenia. Normal visualized tibia. Normal visualized fibula. Moderate arthrosis of the tibiotalar and subtalar joints. Pes planus deformity. Clips in the proximal medial soft tissues. RAD/Tibia Fibula 2 Views IMPRESSION: Osteopenia with osteoarthritic changes and pes planus deformity. No acute abnormality. Electronically Signed: Rubin Maddox MD at 9:31 EST , CC: Dr. Marshall Bear MD Human Resources Administrator: Signed Normal [facility] Thin prep Papanicolaou smear with manual screeningOrdered By: Ochoa Figueroa on 12-12-2023 Thin prep Papanicolaou smear with manual screening 101 mg/dL 74-106 [facility] Basophil percentageOrdered B y: Giuliano Pacheco on 12-10-2023 Basophil percentage 10.5 g/dL 13.0-16.5 [facility] Basophil percentage 129 mg/dL 74-106 [facility] Basophil percentage 138 mmol/L 136-145 [facility] Basophil percentage 3.7 mmol/L 3.5-5.1 [facility] Basophil percentage 105 mmol/L 98-107 [facility] Basophils (Bld) [#/Vol] 5.7 10*3/uL 4.4-11.0 [facility] Determination of erythrocyte mean corpuscular volume (MCV)Ordered By: Giuliano Pacheco on 12-10-2023 MCV (RBC) [Entitic vol] 89.5 fL 80-94 [facility] Erythrocyte distribution wid th ratioOrdered By: Giuliano Pacheco on 12-10-2023 Erythrocyte distribution width (RBC) [Ratio] 13.4 % 11.6-14.6 [facility] Erythrocyte distribution wid th standard deviationOrdered By: Giuliano Pacheco on 12-10-2023 Erythrocyte distribution width (RBC) [Entitic vol] 44.5 fL 35.1-43.9 [facility] Hematocrit Auto (Bld) [Volum e fraction]Ordered By: Giuliano Pacheco on 12-10-2023 Hematocrit (Bld) [Volume fraction] 32.5 % 40-54 [facility] No Panel InformationOrdered By: Giuliano Pacheco on 12-10-2023 28.9 pg 27.0-32.0 [facility] 32.3 g/dL 32-36 [facility] 273 K/mm3 150-450 [facility] 8.2 fl 6.2-12.0 [facility] 63 mL/min >60 [facility] 76 mL/min >60 [facility] 58.65 ml/min [facility] 19.0 RATIO 10-20 [facility] 27.0 mmol/L 21.0-32.0 [facility] RBC Auto (Bld) [#/Vol]Ordere d By: Giuliano Pacheco on 12-10-2023 RBC (Bld) [#/Vol] 3.63 10*6/uL 4.6-6.2 [facility] Serum or plasma calcium elver urement (mass/volume)Ordered By: Giuliano Pacheco on 12-10-2023 Calcium [Mass/Vol] 8.9 mg/dL 8.5-10.1 [facility] Serum or plasma creatinine m easurement (mass/volume)Ordered By: Giuliano Pacheco on 12-10-2023 Creatinine [Mass/Vol] 1.21 mg/dL 0.70-1.30 [facility] Serum or plasma urea nitroge n measurement (mass/volume)Ordered By: Giuliano Pacheco on 12-10-2023 Urea nitrogen [Mass/Vol] 23 mg/dL 7-18 [facility] Thin prep Papanicolaou smear with manual screeningOrdered By: Giuliano Pacheco on 12-10-2023 Thin prep Papanicolaou smear with manual screening 6 5-15 [facility] Absolute lymphocyte countOrd ered By: Momo Patino on 12-09-2023 Lymphocytes Auto (Unsp spec) [#/Vol] 1.38 10*3/uL 0.83-4.51 [facility] Automated lymphocyte count a s percentage of total leukocytesOrdered By: Momo Patino on 12-09-2023 Lymphocytes/100 WBC Auto (Unsp spec) 22.6 % 19-41 [facility] Basophil percentageOrdered B y: Momo Patino on 12-09-2023 Basophils (Bld) [#/Vol] 3.8 10*3/uL 2.0-7.7 [facility] Basophils/100 WBC (Bld) 62.5 % 47-70 [facility] Basophils/100 WBC (Bld) 9.7 % 0-10 [facility] Basophils/100 WBC (Bld) 4.3 % 0-5 [facility] Basophils/100 WBC (Bld) 0.7 % 0-1 [facility] Erythrocyte sedimentation ra teOrdered By: Momo Patino on 12-09-2023 ESR (Bld) [Velocity] 32 mm/h 0-20 [facility] Immature granulocytes/100 WB C Auto (Bld)Ordered By: Momo Patino on 12-09-2023 Immature granulocytes/100 WBC (Bld) 0.200 % 0.0-0.9 [facility] No Panel InformationOrdered By: Momo Patino on 12-09-2023 0 % 0-5 [facility] 26.80 mg/L 0.0-3.0 [facility] Basophil percentageOrdered B y: Tarik Wilkinson on 11-27-2023 Basophil percentage 10.3 g/dL 13.0-16.5 [facility] Basophil percentage 100 mg/dL 74-106 [facility] Basophil percentage 139 mmol/L 136-145 [facility] Basophil percentage 3.0 mmol/L 3.5-5.1 [facility] Basophil percentage 104 mmol/L 98-107 [facility] Basophils (Bld) [#/Vol] 6.3 10*3/uL 4.4-11.0 [facility] Determination of erythrocyte mean corpuscular volume (MCV)Ordered By: Tarik Wilkinson on 11-27-2023 MCV (RBC) [Entitic vol] 90.9 fL 80-94 [facility] Erythrocyte distribution wid th ratioOrdered By: Tarik Wilkinson on 11-27-2023 Erythrocyte distribution width (RBC) [Ratio] 13.8 % 11.6-14.6 [facility] Erythrocyte distribution wid th standard deviationOrdered By: Tarik Wilkinson on 11-27-2023 Erythrocyte distribution width (RBC) [Entitic vol] 46.2 fL 35.1-43.9 [facility] Erythrocyte sedimentation ra teOrdered By: Tarik Wilkinson on 11-27-2023 ESR (Bld) [Velocity] 11 mm/h 0-20 [facility] Hematocrit Auto (Bld) [Volum e fraction]Ordered By: Tarik Wilkinson on 11-27-2023 Hematocrit (Bld) [Volume fraction] 32.9 % 40-54 [facility] No Panel InformationOrdered By: Tarik Wilkinson on 11-27-2023 28.5 pg 27.0-32.0 [facility] 31.3 g/dL 32-36 [facility] 313 K/mm3 150-450 [facility] 8.3 fl 6.2-12.0 [facility] 60 mL/min >60 [facility] 73 mL/min >60 [facility] 11.1 RATIO 10-20 [facility] 30.0 mmol/L 21.0-32.0 [facility] RBC Auto (Bld) [#/Vol]Ordere d By: Tarik Wilkinson on 11-27-2023 RBC (Bld) [#/Vol] 3.62 10*6/uL 4.6-6.2 [facility] Serum or plasma calcium elver urement (mass/volume)Ordered By: Tarik Wilkinson on 11-27-2023 Calcium [Mass/Vol] 9.1 mg/dL 8.5-10.1 [facility] Serum or plasma creatinine m easurement (mass/volume)Ordered By: Tarik Wilkinson on 11-27-2023 Creatinine [Mass/Vol] 1.26 mg/dL 0.70-1.30 [facility] Serum or plasma trough vanco mycin levelOrdered By: Tarik Wilkinson on 11-27-2023 Vancomycin trough [Mass/Vol] 21.3 ug/mL 5.0-15.0 [facility] Serum or plasma urea nitroge n measurement (mass/volume)Ordered By: Tarik Wilkinson on 11-27-2023 Urea nitrogen [Mass/Vol] 14 mg/dL 7-18 [facility] Thin prep Papanicolaou smear with manual screeningOrdered By: Tarik Wilkinson on 11-27-2023 Thin prep Papanicolaou smear with manual screening 5 5-15 [facility] Basophil percentageOrdered B y: Tarik Wilkinson on 11-20-2023 Basophil percentage 10.0 g/dL 13.0-16.5 [facility] Basophil percentage 158 mg/dL 74-106 [facility] Basophil percentage 137 mmol/L 136-145 [facility] Basophil percentage 3.0 mmol/L 3.5-5.1 [facility] Basophil percentage 99 mmol/L 98-107 [facility] Basophils (Bld) [#/Vol] 6.8 10*3/uL 4.4-11.0 [facility] Determination of erythrocyte mean corpuscular volume (MCV)Ordered By: Tarik Wilkinson on 11-20-2023 MCV (RBC) [Entitic vol] 86.8 fL 80-94 [facility] Erythrocyte distribution wid th ratioOrdered By: Tarik Wilkinson on 11-20-2023 Erythrocyte distribution width (RBC) [Ratio] 13.5 % 11.6-14.6 [facility] Erythrocyte distribution wid th standard deviationOrdered By: Tarik Wilkinson on 11-20-2023 Erythrocyte distribution width (RBC) [Entitic vol] 42.6 fL 35.1-43.9 [facility] Erythrocyte sedimentation ra teOrdered By: Tarik Wilkinson on 11-20-2023 ESR (Bld) [Velocity] 9 mm/h 0-20 [facility] Hematocrit Auto (Bld) [Volum e fraction]Ordered By: Tarik Wilkinson on 11-20-2023 Hematocrit (Bld) [Volume fraction] 30.3 % 40-54 [facility] No Panel InformationOrdered By: Tarik Wilkinson on 11-20-2023 28.7 pg 27.0-32.0 [facility] 33.0 g/dL 32-36 [facility] 278 K/mm3 150-450 [facility] 8.9 fl 6.2-12.0 [facility] 67 mL/min >60 [facility] 82 mL/min >60 [facility] 18.4 RATIO 10-20 [facility] 29.0 mmol/L 21.0-32.0 [facility] RBC Auto (Bld) [#/Vol]Ordere d By: Tarik Wilkinson on 11-20-2023 RBC (Bld) [#/Vol] 3.49 10*6/uL 4.6-6.2 [facility] Serum or plasma calcium elver urement (mass/volume)Ordered By: Tarik Wilkinson on 11-20-2023 Calcium [Mass/Vol] 8.7 mg/dL 8.5-10.1 [facility] Serum or plasma creatinine m easurement (mass/volume)Ordered By: Tarik Wilkinson on 11-20-2023 Creatinine [Mass/Vol] 1.14 mg/dL 0.70-1.30 [facility] Serum or plasma trough vanco mycin levelOrdered By: Tarik Wilkinson on 11-20-2023 Vancomycin trough [Mass/Vol] 18.4 ug/mL 5.0-15.0 [facility] Serum or plasma urea nitroge n measurement (mass/volume)Ordered By: Tarik Wilkinson on 11-20-2023 Urea nitrogen [Mass/Vol] 21 mg/dL 7-18 [facility] Thin prep Papanicolaou smear with manual screeningOrdered By: Tarik Wilkinson on 11-20-2023 Thin prep Papanicolaou smear with manual screening 9 - [facility] Basophil percentageOrdered B y: Tarik Wilkinson on 11-10-2023 Basophil percentage 177 mg/dL 74-106 [facility] Basophil percentage 136 mmol/L 136-145 [facility] Basophil percentage 3.1 mmol/L 3.5-5.1 [facility] Basophil percentage 100 mmol/L 98-107 [facility] No Panel InformationOrdered By: Tarik Wilkinson on 11-10-2023 66 mL/min >60 [facility] 80 mL/min >60 [facility] 13.8 RATIO 10-20 [facility] 27.0 mmol/L 21.0-32.0 [facility] Serum or plasma calcium elver urement (mass/volume)Ordered By: Tarik Wilkinson on 11-10-2023 Calcium [Mass/Vol] 9.2 mg/dL 8.5-10.1 [facility] Serum or plasma creatinine m easurement (mass/volume)Ordered By: Tarik Wilkinson on 11-10-2023 Creatinine [Mass/Vol] 1.16 mg/dL 0.70-1.30 [facility] Serum or plasma trough vanco mycin levelOrdered By: Tarik Wilkinson on 11-10-2023 Vancomycin trough [Mass/Vol] 12.1 ug/mL 5.0-15.0 [facility] Serum or plasma urea nitroge n measurement (mass/volume)Ordered By: Tarik Wilkinson on 11-10-2023 Urea nitrogen [Mass/Vol] 16 mg/dL 7-18 [facility] Thin prep Papanicolaou smear with manual screeningOrdered By: Tarik Wilkinson on 11-10-2023 Thin prep Papanicolaou smear with manual screening 9 - [facility] Basophil percentageOrdered B y: Tarik Wilkinson on 11-09-2023 Basophil percentage 112 mg/dL 74-106 [facility] Basophil percentage 138 mmol/L 136-145 [facility] Basophil percentage 3.4 mmol/L 3.5-5.1 [facility] Basophil percentage 103 mmol/L 98-107 [facility] No Panel InformationOrdered By: Tarik Wilkinson on 11-09-2023 65 mL/min >60 [facility] 79 mL/min >60 [facility] 11.1 RATIO 10-20 [facility] 27.0 mmol/L 21.0-32.0 [facility] Serum or plasma calcium elver urement (mass/volume)Ordered By: Tarik Wilkinson on 11-09-2023 Calcium [Mass/Vol] 9.2 mg/dL 8.5-10.1 [facility] Serum or plasma creatinine m easurement (mass/volume)Ordered By: Tarik Wilkinson on 11-09-2023 Creatinine [Mass/Vol] 1.17 mg/dL 0.70-1.30 [facility] Serum or plasma trough vanco mycin levelOrdered By: Tarik Wilkinson on 11-09-2023 Vancomycin trough [Mass/Vol] 22.4 ug/mL 5.0-15.0 [facility] Serum or plasma urea nitroge n measurement (mass/volume)Ordered By: Tarik Wilkinson on 11-09-2023 Urea nitrogen [Mass/Vol] 13 mg/dL 7-18 [facility] Thin prep Papanicolaou smear with manual screeningOrdered By: Tarik Wilkinson on 11-09-2023 Thin prep Papanicolaou smear with manual screening 8 5-15 [facility] Basophil percentageOrdered B y: Tarik Wilkinson on 11-06-2023 Basophil percentage 10.7 g/dL 13.0-16.5 [facility] Basophil percentage 108 mg/dL 74-106 [facility] Basophil percentage 137 mmol/L 136-145 [facility] Basophil percentage 3.5 mmol/L 3.5-5.1 [facility] Basophil percentage 102 mmol/L 98-107 [facility] Basophils (Bld) [#/Vol] 6.4 10*3/uL 4.4-11.0 [facility] Determination of erythrocyte mean corpuscular volume (MCV)Ordered By: Tarik Wilkinson on 11-06-2023 MCV (RBC) [Entitic vol] 91.8 fL 80-94 [facility] Erythrocyte distribution wid th ratioOrdered By: Tarik Wilkinson on 11-06-2023 Erythrocyte distribution width (RBC) [Ratio] 13.7 % 11.6-14.6 [facility] Erythrocyte distribution wid th standard deviationOrdered By: Tarik Wilkinson on 11-06-2023 Erythrocyte distribution width (RBC) [Entitic vol] 46.5 fL 35.1-43.9 [facility] Erythrocyte sedimentation ra teOrdered By: Tarik Wilkinson on 11-06-2023 ESR (Bld) [Velocity] 23 mm/h 0-20 [facility] Hematocrit Auto (Bld) [Volum e fraction]Ordered By: Tarik Wilkinson on 11-06-2023 Hematocrit (Bld) [Volume fraction] 33.5 % 40-54 [facility] No Panel InformationOrdered By: Tarik Wilkinson on 11-06-2023 29.3 pg 27.0-32.0 [facility] 31.9 g/dL 32-36 [facility] 365 K/mm3 150-450 [facility] 8.0 fl 6.2-12.0 [facility] 65 mL/min >60 [facility] 79 mL/min >60 [facility] 12.0 RATIO 10-20 [facility] 28.0 mmol/L 21.0-32.0 [facility] RBC Auto (Bld) [#/Vol]Ordere d By: Tarik Wilkinson on 11-06-2023 RBC (Bld) [#/Vol] 3.65 10*6/uL 4.6-6.2 [facility] Serum or plasma calcium elver urement (mass/volume)Ordered By: Tarik Wilkinson on 11-06-2023 Calcium [Mass/Vol] 9.1 mg/dL 8.5-10.1 [facility] Serum or plasma creatinine m easurement (mass/volume)Ordered By: Tarik Wilkinson on 11-06-2023 Creatinine [Mass/Vol] 1.17 mg/dL 0.70-1.30 [facility] Serum or plasma trough vanco mycin levelOrdered By: Tarik Wilkinson on 11-06-2023 Vancomycin trough [Mass/Vol] 43.2 ug/mL 5.0-15.0 [facility] Serum or plasma urea nitroge n measurement (mass/volume)Ordered By: Tarik Wilkinson on 11-06-2023 Urea nitrogen [Mass/Vol] 14 mg/dL 7-18 [facility] Thin prep Papanicolaou smear with manual screeningOrdered By: Tarik Wilkinson on 11-06-2023 Thin prep Papanicolaou smear with manual screening 7 5-15 [facility] Absolute lymphocyte countOrd ered By: Vin Edmond on 11-01-2023 Lymphocytes Auto (Unsp spec) [#/Vol] 1.02 10*3/uL 0.83-4.51 [facility] Activated partial thrombopla stin time (aPTT) in platelet poor plasma by coagulation aOrdered By: Vin Edmond on 11-01-2023 aPTT Coag (PPP) [Time] 31.0 s 24.1-36.[address] [facility] Automated lymphocyte count a s percentage of total leukocytesOrdered By: Vin Edmond on 11-01-2023 Lymphocytes/100 WBC Auto (Unsp spec) 12.5 % 19-41 [facility] Basophil percentageOrdered B y: Vin Edmond on 11-01-2023 Basophil percentage 10.1 g/dL 13.0-16.5 [facility] Basophil percentage 98 mg/dL 74-106 [facility] Basophil percentage 139 mmol/L 136-145 [facility] Basophil percentage 3.4 mmol/L 3.5-5.1 [facility] Basophil percentage 103 mmol/L 98-107 [facility] Basophils (Bld) [#/Vol] 8.1 10*3/uL 4.4-11.0 [facility] Basophils (Bld) [#/Vol] 6.3 10*3/uL 2.0-7.7 [facility] Basophils/100 WBC (Bld) 77.4 % 47-70 [facility] Basophils/100 WBC (Bld) 7.6 % 0-10 [facility] Basophils/100 WBC (Bld) 1.7 % 0-5 [facility] Basophils/100 WBC (Bld) 0.2 % 0-1 [facility] Determination of erythrocyte mean corpuscular volume (MCV)Ordered By: Vin Edmond on 11-01-2023 MCV (RBC) [Entitic vol] 88.5 fL 80-94 [facility] Erythrocyte distribution wid th ratioOrdered By: Vin Edmond on 11-01-2023 Erythrocyte distribution width (RBC) [Ratio] 13.8 % 11.6-14.6 [facility] Erythrocyte distribution wid th standard deviationOrdered By: Vin Edmond on 11-01-2023 Erythrocyte distribution width (RBC) [Entitic vol] 44.5 fL 35.1-43.9 [facility] Hematocrit Auto (Bld) [Volum e fraction]Ordered By: Vin Edmond on 11-01-2023 Hematocrit (Bld) [Volume fraction] 30.8 % 40-54 [facility] Immature granulocytes/100 WB C Auto (Bld)Ordered By: Vin Edmond on 11-01-2023 Immature granulocytes/100 WBC (Bld) 0.600 % 0.0-0.9 [facility] No Panel InformationOrdered By: Vin Edmond on 11-01-2023 29.0 pg 27.0-32.0 [facility] 32.8 g/dL 32-36 [facility] 269 K/mm3 150-450 [facility] 7.8 fl 6.2-12.0 [facility] 0 % 0-5 [facility] 13.3 SECONDS 11.7-14.9 [facility] 1.0 [facility] 85 mL/min >60 [facility] 102 mL/min >60 [facility] 75.50 ml/min [facility] 10.7 RATIO 10-20 [facility] 29.0 mmol/L 21.0-32.0 [facility] RBC Auto (Bld) [#/Vol]Ordere d By: Vin Edmond on 11-01-2023 RBC (Bld) [#/Vol] 3.48 10*6/uL 4.6-6.2 [facility] Serum or plasma calcium elver urement (mass/volume)Ordered By: Vin Edmond on 11-01-2023 Calcium [Mass/Vol] 8.7 mg/dL 8.5-10.1 [facility] Serum or plasma creatinine m easurement (mass/volume)Ordered By: Vin Edmond on 11-01-2023 Creatinine [Mass/Vol] 0.94 mg/dL 0.70-1.30 [facility] Serum or plasma urea nitroge n measurement (mass/volume)Ordered By: Vin Edmond on 11-01-2023 Urea nitrogen [Mass/Vol] 10 mg/dL 7-18 [facility] Thin prep Papanicolaou smear with manual screeningOrdered By: Vin Edmond on 11-01-2023 Thin prep Papanicolaou smear with manual screening 7 5-15 [facility] Basophil percentageOrdered B y: Tarik Wilkinson on 10-30-2023 Basophil percentage 10.8 g/dL 13.0-16.5 [facility] Basophil percentage 125 mg/dL 74-106 [facility] Basophil percentage 138 mmol/L 136-145 [facility] Basophil percentage 3.4 mmol/L 3.5-5.1 [facility] Basophil percentage 105 mmol/L 98-107 [facility] Basophils (Bld) [#/Vol] 7.2 10*3/uL 4.4-11.0 [facility] Determination of erythrocyte mean corpuscular volume (MCV)Ordered By: Tarik Wilkinson on 10-30-2023 MCV (RBC) [Entitic vol] 89.3 fL 80-94 [facility] Erythrocyte distribution wid th ratioOrdered By: Tarik Wilkinson on 10-30-2023 Erythrocyte distribution width (RBC) [Ratio] 13.9 % 11.6-14.6 [facility] Erythrocyte distribution wid th standard deviationOrdered By: Tarik Wilkinson on 10-30-2023 Erythrocyte distribution width (RBC) [Entitic vol] 45.3 fL 35.1-43.9 [facility] Erythrocyte sedimentation ra teOrdered By: Tarik Wilkinson on 10-30-2023 ESR (Bld) [Velocity] 19 mm/h 0-20 [facility] Hematocrit Auto (Bld) [Volum e fraction]Ordered By: Tarik Wilkinson on 10-30-2023 Hematocrit (Bld) [Volume fraction] 33.5 % 40-54 [facility] No Panel InformationOrdered By: Tarik Wilkinson on 10-30-2023 28.8 pg 27.0-32.0 [facility] 32.2 g/dL 32-36 [facility] 305 K/mm3 150-450 [facility] 8.5 fl 6.2-12.0 [facility] 83 mL/min >60 [facility] 101 mL/min >60 [facility] 12.6 RATIO 10-20 [facility] 27.0 mmol/L 21.0-32.0 [facility] RBC Auto (Bld) [#/Vol]Ordere d By: Tarik Wilkinson on 10-30-2023 RBC (Bld) [#/Vol] 3.75 10*6/uL 4.6-6.2 [facility] Serum or plasma calcium elver urement (mass/volume)Ordered By: Tarik Wilkinson on 10-30-2023 Calcium [Mass/Vol] 9.0 mg/dL 8.5-10.1 [facility] Serum or plasma creatinine m easurement (mass/volume)Ordered By: Tarik Wilkinson on 10-30-2023 Creatinine [Mass/Vol] 0.95 mg/dL 0.70-1.30 [facility] Serum or plasma trough vanco mycin levelOrdered By: Tarik Wilkinson on 10-30-2023 Vancomycin trough [Mass/Vol] 26.1 ug/mL 5.0-15.0 [facility] Serum or plasma urea nitroge n measurement (mass/volume)Ordered By: Tarik Wilkinson on 10-30-2023 Urea nitrogen [Mass/Vol] 12 mg/dL 7-18 [facility] Thin prep Papanicolaou smear with manual screeningOrdered By: Tarik Wilkinson on 10-30-2023 Thin prep Papanicolaou smear with manual screening 6 5-15 [facility] Absolute lymphocyte countOrd ered By: Ochoa Figueroa on 10-26-2023 Lymphocytes Auto (Unsp spec) [#/Vol] 1.15 10*3/uL 0.83-4.51 [facility] Automated lymphocyte count a s percentage of total leukocytesOrdered By: Ochoa Figueroa on 10-26-2023 Lymphocytes/100 WBC Auto (Unsp spec) 13.5 % 19-41 [facility] Basophil percentageOrdered B y: Ochoa Figueroa on 10-26-2023 Basophil percentage 12.4 g/dL 13.0-16.5 [facility] Basophil percentage 119 mg/dL 74-106 [facility] Basophil percentage 2.7 mg/dL 2.5-4.9 [facility] Basophil percentage 131 mmol/L 136-145 [facility] Basophil percentage 3.6 mmol/L 3.5-5.1 [facility] Basophil percentage 99 mmol/L 98-107 [facility] Basophils (Bld) [#/Vol] 8.6 10*3/uL 4.4-11.0 [facility] Basophils (Bld) [#/Vol] 6.5 10*3/uL 2.0-7.7 [facility] Basophils/100 WBC (Bld) 75.9 % 47-70 [facility] Basophils/100 WBC (Bld) 8.8 % 0-10 [facility] Basophils/100 WBC (Bld) 0.8 % 0-5 [facility] Basophils/100 WBC (Bld) 0.5 % 0-1 [facility] Determination of erythrocyte mean corpuscular volume (MCV)Ordered By: Ochoa Figueroa on 10-26-2023 MCV (RBC) [Entitic vol] 82.6 fL 80-94 [facility] Erythrocyte distribution wid th ratioOrdered By: Ochoa Figueroa on 10-26-2023 Erythrocyte distribution width (RBC) [Ratio] 13.3 % 11.6-14.6 [facility] Erythrocyte distribution wid th standard deviationOrdered By: Ochoa Figueroa on 10-26-2023 Erythrocyte distribution width (RBC) [Entitic vol] 39.8 fL 35.1-43.9 [facility] Hematocrit Auto (Bld) [Volum e fraction]Ordered By: Ochoa Figueroa on 10-26-2023 Hematocrit (Bld) [Volume fraction] 36.6 % 40-54 [facility] Immature granulocytes/100 WB C Auto (Bld)Ordered By: Ochoa Figueroa on 10-26-2023 Immature granulocytes/100 WBC (Bld) 0.500 % 0.0-0.9 [facility] No Panel InformationOrdered By: Ochoa Figueroa on 10-26-2023 28.0 pg 27.0-32.0 [facility] 33.9 g/dL 32-36 [facility] 248 K/mm3 150-450 [facility] 7.9 fl 6.2-12.0 [facility] 0 % 0-5 [facility] 137 mL/min >60 [facility] 166 mL/min >60 [facility] 88.72 ml/min [facility] 22.7 RATIO 10-20 [facility] 23.0 mmol/L 21.0-32.0 [facility] RBC Auto (Bld) [#/Vol]Ordere d By: Ochoa Figueroa on 10-26-2023 RBC (Bld) [#/Vol] 4.43 10*6/uL 4.6-6.2 [facility] Serum or plasma calcium elver urement (mass/volume)Ordered By: Ochoa Figueroa on 10-26-2023 Calcium [Mass/Vol] 8.7 mg/dL 8.5-10.1 [facility] Serum or plasma creatinine m easurement (mass/volume)Ordered By: Ochoa Figueroa on 10-26-2023 Creatinine [Mass/Vol] 0.62 mg/dL 0.70-1.30 [facility] Serum or plasma urea nitroge n measurement (mass/volume)Ordered By: Ochoa Figueroa on 10-26-2023 Urea nitrogen [Mass/Vol] 14 mg/dL 7-18 [facility] Thin prep Papanicolaou smear with manual screeningOrdered By: Vin Wheatley on 10-26-2023 Thin prep Papanicolaou smear with manual screening 170 mg/dL 74-106 [facility] Thin prep Papanicolaou smear with manual screening 180 mg/dL 74-106 [facility] Thin prep Papanicolaou smear with manual screeningOrdered By: Ochoa Figueroa on 10-26-2023 Thin prep Papanicolaou smear with manual screening 9 5-15 [facility] Anaerobic cultureOrdered By: Carmita Ponce on 10-25-2023 Bacteria identified Anaer cx Nom (Unsp spec) No growth in 5 days. [facility] Fungus stainOrdered By: Tana Ponce on 10-25-2023 Fungus identified Fungus stain Nom (Unsp spec) [facility] Gram stain for investigation of transfusion reactionOrdered By: Carmita Ponce on 10-25-2023 Microscopic observation Gram stain Nom (Unsp spec) [facility] No Panel InformationOrdered By: Ventura Godoy on 10-25-2023 SEE PATHOLOGY REPORT [facility] No Panel InformationOrdered By: Carmita Ponce on 10-25-2023 No growth aerobically. Wo [facility] No Panel InformationOrdered By: Rda Kolb on 10-25-2023 13.6 SECONDS 11.7-14.9 [facility] 1.0 [facility] Serum or plasma trough vanco mycin levelOrdered By: Tarik Wilkinson on 10-25-2023 Vancomycin trough [Mass/Vol] 13.6 ug/mL 5.0-15.0 [facility] Whole blood hemoglobin A1c/t otal hemoglobin ratio (mass fraction)Ordered By: Rad Kolb on 10-25-2023 HbA1c (Bld) [Mass fraction] 6.2 % 3.8-5.6 [facility] Basophil percentageOrdered B y: Ochoa Figueroa on 10-24-2023 Basophil percentage 5.9 g/dL 6.4-8.2 [facility] Basophil percentage 1.40 mg/dL 0.20-1.00 [facility] No Panel InformationOrdered By: Ochoa Figueroa on 10-24-2023 3.1 g/dL 2.2-4.2 [facility] 0.9 RATIO 0.9-2.4 [facility] 72 U/L 45-117 [facility] 18 U/L 16-61 [facility] Thin prep Papanicolaou smear with manual screeningOrdered By: Ochoa Figueroa on 10-24-2023 Thin prep Papanicolaou smear with manual screening 2.8 g/dL 3.2-5.0 [facility] Thin prep Papanicolaou smear with manual screening 17 U/L 15-37 [facility] No Panel InformationOrdered By: Ochoa Figueroa on 10-23-2023 177 pg/mL 211-911 [facility] Serum or plasma thyroid stim ulating hormone (TSH) measurement (units/volume)Ordered By: Ochoa Figueroa on 10-23-2023 TSH Qn 2.40 uIU/mL 0.358-3.74 [facility] Basophil percentageOrdered B y: Sara Reaves on 10-22-2023 Basophil percentage 179 mg/dL <200 [facility] Basophil percentage 59 mg/dL <199 [facility] No Panel InformationOrdered By: Sara Reaves on 10-22-2023 No growth in 5 days. [facility] 2.7 mg/dL 1.6-2.6 [facility] 44 mg/dL >40 [facility] 123 mg/dL 0-130 [facility] 12 mg/dL 5-40 [facility] Respiratory pathogens detect ion panel by molecular detection methodOrdered By: Sara Reaves on 10-22-2023 Respiratory pathogens DNA and RNA panel CHARLES+probe (Resp) [facility] Serum procalcitonin measurem entOrdered By: Sara Reaves on 10-22-2023 Procalcitonin [Mass/Vol] ng/mL 0.00-0.09 [facility] Absolute lymphocyte countOrd ered By: Kayli Granados on 10-21-2023 Lymphocytes Auto (Unsp spec) [#/Vol] 2.09 10*3/uL 0.83-4.51 [facility] Activated partial thrombopla stin time (aPTT) in platelet poor plasma by coagulation aOrdered By: Kayli Granados on 10-21-2023 aPTT Coag (PPP) [Time] 26.6 s 24.1-36.[address] [facility] Automated lymphocyte count a s percentage of total leukocytesOrdered By: Kayli Granados on 10-21-2023 Lymphocytes/100 WBC Auto (Unsp spec) 20.2 % 19-41 [facility] Basophil percentageOrdered B y: Kayli Granados on 10-21-2023 Basophil percentage < 10.0 umol/L 11-[address] [facility] Basophil percentage 0-5 SEEN /hpf 0-[address] [facility] Basophil percentage 13.1 g/dL 13.0-16.5 [facility] Basophil percentage 131 mg/dL 74-106 [facility] Basophil percentage 131 mmol/L 136-145 [facility] Basophil percentage 3.2 mmol/L 3.5-5.1 [facility] Basophil percentage 97 mmol/L 98-107 [facility] Basophils (Bld) [#/Vol] 10.3 10*3/uL 4.4-11.0 [facility] Basophils (Bld) [#/Vol] 7.2 10*3/uL 2.0-7.7 [facility] Basophils/100 WBC (Bld) 69.6 % 47-70 [facility] Basophils/100 WBC (Bld) 9.6 % 0-10 [facility] Basophils/100 WBC (Bld) 0.0 % 0-5 [facility] Basophils/100 WBC (Bld) 0.2 % 0-1 [facility] Bilirubin Test strip Ql (U)O rdered By: Kayli Granados on 10-21-2023 Bilirubin Ql (U) Negative Negative [facility] Determination of erythrocyte mean corpuscular volume (MCV)Ordered By: Kayli Granados on 10-21-2023 MCV (RBC) [Entitic vol] 85.0 fL 80-94 [facility] Erythrocyte distribution wid th ratioOrdered By: Kayli Granados on 10-21-2023 Erythrocyte distribution width (RBC) [Ratio] 13.3 % 11.6-14.6 [facility] Erythrocyte distribution wid th standard deviationOrdered By: Kayli Granados on 10-21-2023 Erythrocyte distribution width (RBC) [Entitic vol] 41.1 fL 35.1-43.9 [facility] Hematocrit Auto (Bld) [Volum e fraction]Ordered By: Kayli Granados on 10-21-2023 Hematocrit (Bld) [Volume fraction] 39.1 % 40-54 [facility] Immature granulocytes/100 WB C Auto (Bld)Ordered By: Kayli Granados on 10-21-2023 Immature granulocytes/100 WBC (Bld) 0.400 % 0.0-0.9 [facility] Ketones Test strip Ql (U)Ord ered By: Kayli Granados on 10-21-2023 Ketones Ql (U) 15 mg/dl Negative [facility] Mucus LM Ql (Urine sed)Order ed By: Kayli Granados on 10-21-2023 Mucus Ql (Urine sed) 0 SEEN /hpf [facility] Nitrite Test strip Ql (U)Ord ered By: Kayli Granados on 10-21-2023 Nitrite Ql (U) Negative Negative [facility] No Panel InformationOrdered By: Kayli Granados on 10-21-2023 0 SEEN /hpf 0-5 [facility] 28.5 pg 27.0-32.0 [facility] 33.5 g/dL 32-36 [facility] 343 K/mm3 150-450 [facility] 8.1 fl 6.2-12.0 [facility] 0 % 0-5 [facility] 13.7 SECONDS 11.7-14.9 [facility] 1.1 [facility] 96 mL/min >60 [facility] 116 mL/min >60 [facility] 84.49 ml/min [facility] 28.5 RATIO 10-20 [facility] 28 pg/mL 3.0-78.0 [facility] 26.0 mmol/L 21.0-32.0 [facility] No Panel InformationOrdered By: Sara Reaves on 10-21-2023 1.4 mg/dL 1.6-2.6 [facility] Protein Test strip Ql (U)Ord ered By: Kayli Granados on 10-21-2023 Protein Ql (U) 30 mg/dl Negative [facility] RBC Auto (Bld) [#/Vol]Ordere d By: Kayli Granados on 10-21-2023 RBC (Bld) [#/Vol] 4.60 10*6/uL 4.6-6.2 [facility] Serum or plasma calcium elver urement (mass/volume)Ordered By: Kayli Granados on 10-21-2023 Calcium [Mass/Vol] 9.5 mg/dL 8.5-10.1 [facility] Serum or plasma creatinine m easurement (mass/volume)Ordered By: Kayli Granados on 10-21-2023 Creatinine [Mass/Vol] 0.84 mg/dL 0.70-1.30 [facility] Serum or plasma urea nitroge n measurement (mass/volume)Ordered By: Kayli Granados on 10-21-2023 Urea nitrogen [Mass/Vol] 24 mg/dL 7-18 [facility] Squamous epithelial cells de tection in urine sediment by light microscopyOrdered By: Kayli Granados on 10-21-2023 Epithelial cells.squamous LM Ql (Urine sed) 0 SEEN /hpf 0-5 [facility] Thin prep Papanicolaou smear with manual screeningOrdered By: Kayli Granados on 10-21-2023 Thin prep Papanicolaou smear with manual screening 8 5-15 [facility] Urine blood detectionOrdered By: Remus Darwin on 10-21-2023 RBC Ql (U) 25 /ul Negative [facility] Urine clarityOrdered By: Rem us Darwin on 10-21-2023 Clarity (U) Clear Clear [facility] Urine color determinationOrd ered By: Remus Darwin on 10-21-2023 Color (U) Yellow Yellow [facility] Urine glucose detectionOrder ed By: Remus Darwin on 10-21-2023 Glucose Ql (U) 50 mg/dl Normal [facility] Urine leukocyte esterase det ection by dipstickOrdered By: Remus Granados on 10-21-2023 Leukocyte esterase Test strip Ql (U) 25 /ul Negative [facility] Urine pHOrdered By: Kayli Ni gur on 10-21-2023 pH (U) 7.0 [pH] 5.0 - 8.0 [facility] Urine sediment bacteria coun t by microscopy (number/high power field)Ordered By: Kayli Granados on 10-21-2023 Bacteria LM.HPF (Urine sed) [#/Area] 0 /[HPF] None Seen [facility] Urine specific gravity measu rementOrdered By: Remus Granados on 10-21-2023 Specific gravity (U) [Rel density] 1.010 1.002-1.030 [facility] Urine urobilinogen measureme ntOrdered By: Remus Granados on 10-21-2023 Urobilinogen Ql (U) Normal mg/dl Normal [facility] EGD Study observation Narrat iveon 10-11-2023 [facility] Absolute lymphocyte countOrd ered By: Elvia Pineda on 10-01-2023 Lymphocytes Auto (Unsp spec) [#/Vol] 2.11 10*3/uL 0.83-4.51 [facility] Amorphous sediment detection in urine sediment by light microscopyOrdered By: Elvia Pineda on 10-01-2023 Amorphous sediment LM Ql (Urine sed) 1+ URATE [facility] Automated lymphocyte count a s percentage of total leukocytesOrdered By: Elvia Pineda on 10-01-2023 Lymphocytes/100 WBC Auto (Unsp spec) 22.9 % 19-41 [facility] Basophil percentageOrdered B y: Elvia Pineda on 10-01-2023 Basophil percentage 0 SEEN /hpf 0-5 [facility] Basophil percentage 13.2 g/dL 13.0-16.5 [facility] Basophil percentage 141 mg/dL 74-106 [facility] Basophil percentage 7.6 g/dL 6.4-8.2 [facility] Basophil percentage 1.20 mg/dL 0.20-1.00 [facility] Basophil percentage 133 mmol/L 136-145 [facility] Basophil percentage 3.4 mmol/L 3.5-5.1 [facility] Basophil percentage 99 mmol/L 98-107 [facility] Basophils (Bld) [#/Vol] 9.2 10*3/uL 4.4-11.0 [facility] Basophils (Bld) [#/Vol] 6.2 10*3/uL 2.0-7.7 [facility] Basophils/100 WBC (Bld) 67.5 % 47-70 [facility] Basophils/100 WBC (Bld) 8.7 % 0-10 [facility] Basophils/100 WBC (Bld) 0.2 % 0-5 [facility] Basophils/100 WBC (Bld) 0.4 % 0-1 [facility] Bilirubin Test strip Ql (U)O rdered By: Elvia Pineda on 10-01-2023 Bilirubin Ql (U) Negative Negative [facility] Determination of erythrocyte mean corpuscular volume (MCV)Ordered By: Elvia Pineda on 10-01-2023 MCV (RBC) [Entitic vol] 86.2 fL 80-94 [facility] Erythrocyte distribution wid th ratioOrdered By: Elvia Pineda on 10-01-2023 Erythrocyte distribution width (RBC) [Ratio] 12.9 % 11.6-14.6 [facility] Erythrocyte distribution wid th standard deviationOrdered By: Elvia Pineda on 10-01-2023 Erythrocyte distribution width (RBC) [Entitic vol] 39.9 fL 35.1-43.9 [facility] Erythrocyte sedimentation ra teOrdered By: Elvia Pineda on 10-01-2023 ESR (Bld) [Velocity] 10 mm/h 0-20 [facility] Hematocrit Auto (Bld) [Volum e fraction]Ordered By: Elvia Pineda on 10-01-2023 Hematocrit (Bld) [Volume fraction] 40.1 % 40-54 [facility] Immature granulocytes/100 WB C Auto (Bld)Ordered By: Elvia Pineda on 10-01-2023 Immature granulocytes/100 WBC (Bld) 0.300 % 0.0-0.9 [facility] Ketones Test strip Ql (U)Ord ered By: Elvia Pineda on 10-01-2023 Ketones Ql (U) 15 mg/dl Negative [facility] Mucus LM Ql (Urine sed)Order ed By: Elvia Pineda on 10-01-2023 Mucus Ql (Urine sed) 0 SEEN /hpf [facility] Nitrite Test strip Ql (U)Ord ered By: Elvia Pineda on 10-01-2023 Nitrite Ql (U) Negative Negative [facility] No Panel InformationOrdered By: Elvia Pineda on 10-01-2023 0 SEEN /hpf 0-5 [facility] 28.4 pg 27.0-32.0 [facility] 32.9 g/dL 32-36 [facility] 316 K/mm3 150-450 [facility] 8.2 fl 6.2-12.0 [facility] 0 % 0-5 [facility] 76 mL/min >60 [facility] 92 mL/min >60 [facility] 68.91 ml/min [facility] 19.4 RATIO 10-20 [facility] 3.9 g/dL 2.2-4.2 [facility] 0.9 RATIO 0.9-2.4 [facility] 33 U/L 13-75 [facility] 102 U/L 45-117 [facility] 21 U/L 16-61 [facility] 26.0 mmol/L 21.0-32.0 [facility] 8.12 mg/L 0.0-3.0 [facility] Protein Test strip Ql (U)Ord ered By: Elvia Pineda on 10-01-2023 Protein Ql (U) Negative Negative [facility] RBC Auto (Bld) [#/Vol]Ordere d By: Elvia Pineda on 10-01-2023 RBC (Bld) [#/Vol] 4.65 10*6/uL 4.6-6.2 [facility] Serum or plasma calcium elver urement (mass/volume)Ordered By: Elvia Pineda on 10-01-2023 Calcium [Mass/Vol] 9.4 mg/dL 8.5-10.1 [facility] Serum or plasma creatinine m easurement (mass/volume)Ordered By: Elvia Pineda on 10-01-2023 Creatinine [Mass/Vol] 1.03 mg/dL 0.70-1.[address] [facility] [address] [facility] Serum or plasma urea nitroge n measurement (mass/volume)Ordered By: Elvia Pineda on 10-01-2023 Urea nitrogen [Mass/Vol] 20 mg/dL 7-18 [facility] Squamous epithelial cells de tection in urine sediment by light microscopyOrdered By: Elvia Pineda on 10-01-2023 Epithelial cells.squamous LM Ql (Urine sed) 0-5 SEEN /hpf 0-5 [facility] Thin prep Papanicolaou smear with manual screeningOrdered By: Elvia Pineda on 10-01-2023 Thin prep Papanicolaou smear with manual screening 3.7 g/dL 3.2-5.0 [facility] Thin prep Papanicolaou smear with manual screening 19 U/L 15-37 [facility] Thin prep Papanicolaou smear with manual screening 8 5-15 [facility] Urine blood detectionOrdered By: Elvia Pineda on 10-01-2023 RBC Ql (U) Negative Negative [facility] Urine clarityOrdered By: Kezia Pineda on 10-01-2023 Clarity (U) Sl. Cloudy Clear [facility] Urine color determinationOrd ered By: Elvia Pineda on 10-01-2023 Color (U) Yellow Yellow [facility] Urine glucose detectionOrder ed By: Elvia Pineda on 10-01-2023 Glucose Ql (U) Normal mg/dl Normal [facility] Urine leukocyte esterase det ection by dipstickOrdered By: Elvia Pineda on 10-01-2023 Leukocyte esterase Test strip Ql (U) Negative Negative [facility] Urine pHOrdered By: Elvia Pineda on 10-01-2023 pH (U) 6.0 [pH] 5.0 - 8.0 [facility] Urine sediment bacteria coun t by microscopy (number/high power field)Ordered By: Elvia Pineda on 10-01-2023 Bacteria LM.HPF (Urine sed) [#/Area] 0 /[HPF] None Seen [facility] Urine specific gravity measu rementOrdered By: Elvia Pineda on 10-01-2023 Specific gravity (U) [Rel density] 1.010 1.002-1.030 [facility] Urine urobilinogen measureme ntOrdered By: Elvia Pineda on 10-01-2023 Urobilinogen Ql (U) Normal mg/dl Normal [facility] Absolute lymphocyte countOrd ered By: Marshall Bear on 09-27-2023 Lymphocytes Auto (Unsp spec) [#/Vol] 2.20 10*3/uL 0.83-4.51 [facility] Automated lymphocyte count a s percentage of total leukocytesOrdered By: Marshall Bear on 09-27-2023 Lymphocytes/100 WBC Auto (Unsp spec) 22.8 % 19-41 [facility] Basophil percentageOrdered B y: Marshall Bear on 09-27-2023 Basophil percentage 13.1 g/dL 13.0-16.5 [facility] Basophil percentage 0 SEEN /hpf 0-5 [facility] Basophil percentage 145 mg/dL 74-106 [facility] Basophil percentage 7.7 g/dL 6.4-8.2 [facility] Basophil percentage 1.00 mg/dL 0.20-1.00 [facility] Basophil percentage 136 mmol/L 136-145 [facility] Basophil percentage 3.7 mmol/L 3.5-5.1 [facility] Basophil percentage 101 mmol/L 98-107 [facility] Basophils (Bld) [#/Vol] 9.7 10*3/uL 4.4-11.0 [facility] Basophils (Bld) [#/Vol] 6.5 10*3/uL 2.0-7.7 [facility] Basophils/100 WBC (Bld) 67.0 % 47-70 [facility] Basophils/100 WBC (Bld) 9.1 % 0-10 [facility] Basophils/100 WBC (Bld) 0.3 % 0-5 [facility] Basophils/100 WBC (Bld) 0.4 % 0-1 [facility] Bilirubin Test strip Ql (U)O rdered By: Marshall Bear on 09-27-2023 Bilirubin Ql (U) Negative Negative [facility] Determination of erythrocyte mean corpuscular volume (MCV)Ordered By: Marshall Bear on 09-27-2023 MCV (RBC) [Entitic vol] 87.4 fL 80-94 [facility] Erythrocyte distribution wid th ratioOrdered By: Marshall Bear on 09-27-2023 Erythrocyte distribution width (RBC) [Ratio] 13.0 % 11.6-14.6 [facility] Erythrocyte distribution wid th standard deviationOrdered By: Marshall Bear on 09-27-2023 Erythrocyte distribution width (RBC) [Entitic vol] 40.9 fL 35.1-43.9 [facility] Erythrocyte sedimentation ra teOrdered By: Marshall Bear on 09-27-2023 ESR (Bld) [Velocity] 12 mm/h 0-20 [facility] Hematocrit Auto (Bld) [Volum e fraction]Ordered By: Marshall Bear on 09-27-2023 Hematocrit (Bld) [Volume fraction] 40.4 % 40-54 [facility] Immature granulocytes/100 WB C Auto (Bld)Ordered By: Marshall Bear on 09-27-2023 Immature granulocytes/100 WBC (Bld) 0.400 % 0.0-0.9 [facility] Ketones Test strip Ql (U)Ord ered By: Marshall Bear on 09-27-2023 Ketones Ql (U) Negative Negative [facility] Mucus LM Ql (Urine sed)Order ed By: Marshall Bear on 09-27-2023 Mucus Ql (Urine sed) 0 SEEN /hpf [facility] Nitrite Test strip Ql (U)Ord ered By: Marshall Bear on 09-27-2023 Nitrite Ql (U) Negative Negative [facility] No Panel InformationOrdered By: Marshall Bear on 09-27-2023 28.4 pg 27.0-32.0 [facility] 32.4 g/dL 32-36 [facility] 352 K/mm3 150-450 [facility] 8.3 fl 6.2-12.0 [facility] 0 % 0-5 [facility] 0 SEEN /hpf 0-5 [facility] 93 mL/min >60 [facility] 113 mL/min >60 [facility] 16.3 RATIO 10-20 [facility] 4.0 g/dL 2.2-4.2 [facility] 0.9 RATIO 0.9-2.4 [facility] 106 U/L 45-117 [facility] 27 U/L 16-61 [facility] 26.0 mmol/L 21.0-32.0 [facility] < 2.90 mg/L 0.0-3.0 [facility] Protein Test strip Ql (U)Ord ered By: Marshall Bear on 09-27-2023 Protein Ql (U) Negative Negative [facility] RBC Auto (Bld) [#/Vol]Ordere d By: Marshall Bear on 09-27-2023 RBC (Bld) [#/Vol] 4.62 10*6/uL 4.6-6.2 [facility] Serum or plasma calcium elver urement (mass/volume)Ordered By: Marshall Bear on 09-27-2023 Calcium [Mass/Vol] 9.4 mg/dL 8.5-10.1 [facility] Serum or plasma creatinine m easurement (mass/volume)Ordered By: Marshall Bear on 09-27-2023 Creatinine [Mass/Vol] 0.86 mg/dL 0.70-1.30 [facility] Serum or plasma thyroid stim ulating hormone (TSH) measurement (units/volume)Ordered By: Marshall Bear on 09-27-2023 TSH Qn 1.61 uIU/mL 0.358-3.74 [facility] Serum or plasma urea nitroge n measurement (mass/volume)Ordered By: Marshall Bear on 09-27-2023 Urea nitrogen [Mass/Vol] 14 mg/dL 7-18 [facility] Squamous epithelial cells de tection in urine sediment by light microscopyOrdered By: Marshall Bear on 09-27-2023 Epithelial cells.squamous LM Ql (Urine sed) 0 SEEN /hpf 0-5 [facility] Thin prep Papanicolaou smear with manual screeningOrdered By: Marshall Bear on 09-27-2023 Thin prep Papanicolaou smear with manual screening 3.7 g/dL 3.2-5.0 [facility] Thin prep Papanicolaou smear with manual screening 18 U/L 15-37 [facility] Thin prep Papanicolaou smear with manual screening 9 5-15 [facility] Urine blood detectionOrdered By: Marshall Bear on 09-27-2023 RBC Ql (U) Negative Negative [facility] Urine clarityOrdered By: Kristen Bear on 09-27-2023 Clarity (U) Clear Clear [facility] Urine color determinationOrd ered By: Marshall Bear on 09-27-2023 Color (U) YELLOW Yellow [facility] Urine glucose detectionOrder ed By: Marshall Bear on 09-27-2023 Glucose Ql (U) Normal mg/dl Normal [facility] Urine leukocyte esterase det ection by dipstickOrdered By: Marshall Bear on 09-27-2023 Leukocyte esterase Test strip Ql (U) Negative Negative [facility] Urine pHOrdered By: Marshall villalba on 09-27-2023 pH (U) 6.0 [pH] 5.0 - 8.0 [facility] Urine sediment bacteria coun t by microscopy (number/high power field)Ordered By: Marshall Bear on 09-27-2023 Bacteria LM.HPF (Urine sed) [#/Area] 0 /[HPF] None Seen [facility] Urine specific gravity measu rementOrdered By: Marshall Bear on 09-27-2023 Specific gravity (U) [Rel density] 1.010 1.002-1.030 [facility] Urine urobilinogen measureme ntOrdered By: Marshall Bear on 09-27-2023 Urobilinogen Ql (U) Normal mg/dl Normal [facility] Basophil percentageOrdered B y: Jeff Meek on 09-26-2023 Basophil percentage 0 SEEN /hpf 0-5 [facility] Bilirubin Test strip Ql (U)O rdered By: Jeff Meek on 09-26-2023 Bilirubin Ql (U) 1 mg/dL Negative [facility] Culture, urineOrdered By: St kelli Meek on 09-26-2023 Bacteria identified Cx Nom (U) Culture exhibits no growth. [facility] Bacteria identified Cx Nom (U) Culture exhibits no growth. [facility] Ketones Test strip Ql (U)Ord ered By: Jeff Meek on 09-26-2023 Ketones Ql (U) 5 mg/dl Negative [facility] Mucus LM Ql (Urine sed)Order ed By: Jeff Meek on 09-26-2023 Mucus Ql (Urine sed) 0 SEEN /hpf [facility] Nitrite Test strip Ql (U)Ord ered By: Jeff Meek on 09-26-2023 Nitrite Ql (U) Negative Negative [facility] No Panel InformationOrdered By: Jeff Meek on 09-26-2023 0-5 SEEN /hpf 0-5 [facility] No Panel Informationon 09-26 [place] [facility] Clear [facility] Negative [facility] 1.010 [facility] 7.0 [facility] Large (3+) [facility] 2+ [facility] Negatve [facility] Negative [facility] Negative [facility] Protein Test strip Ql (U)Ord ered By: Jeff Meek on 09-26-2023 Protein Ql (U) 30 mg/dl Negative [facility] Squamous epithelial cells de tection in urine sediment by light microscopyOrdered By: Jeff Meek on 09-26-2023 Epithelial cells.squamous LM Ql (Urine sed) 0 SEEN /hpf 0-5 [facility] Urine blood detectionOrdered By: Jeff Meek on 09-26-2023 RBC Ql (U) Negative Negative [facility] Urine clarityOrdered By: Bryan Meek on 09-26-2023 Clarity (U) Clear Clear [facility] Urine color determinationOrd ered By: Jeff Meek on 09-26-2023 Color (U) Yellow Yellow [facility] Urine glucose detectionOrder ed By: Jeff Meek on 09-26-2023 Glucose Ql (U) Normal mg/dl Normal [facility] Urine leukocyte esterase det ection by dipstickOrdered By: Jeff Meek on 09-26-2023 Leukocyte esterase Test strip Ql (U) 25 /ul Negative [facility] Urine pHOrdered By: Jeff goss on 09-26-2023 pH (U) 5.0 [pH] 5.0 - 8.0 [facility] Urine sediment bacteria coun t by microscopy (number/high power field)Ordered By: Jeff Meek on 09-26-2023 Bacteria LM.HPF (Urine sed) [#/Area] 0 /[HPF] None Seen [facility] [facility] Urine specific gravity measu rementOrdered By: Jeff Meek on 09-26-2023 Specific gravity (U) [Rel density] 1.015 1.002-1.030 [facility] Urine urobilinogen measureme ntOrdered By: Jeff Meek on 09-26-2023 Urobilinogen Ql (U) 1 mg/dl Normal [facility] Absolute lymphocyte countOrd ered By: Marshall Bear on 08-21-2023 Lymphocytes Auto (Unsp spec) [#/Vol] 1.86 10*3/uL 0.83-4.51 [facility] Basophil percentageOrdered B y: Marshall Bear on 08-21-2023 Basophil percentage 118 mg/dL 74-106 [facility] Basophil percentage 7.5 g/dL 6.4-8.2 [facility] Basophil percentage 0.80 mg/dL 0.20-1.00 [facility] Basophil percentage 136 mmol/L 136-145 [facility] Basophil percentage 4.0 mmol/L 3.5-5.1 [facility] Basophil percentage 102 mmol/L 98-107 [facility] Basophils (Bld) [#/Vol] 6.8 10*3/uL 4.4-11.0 [facility] Basophils (Bld) [#/Vol] 4.2 10*3/uL 2.0-7.7 [facility] Basophils/100 WBC (Bld) 0.4 % 0-1 [facility] Basophils/100 WBC (Bld) 61.6 % 47-70 [facility] Basophils/100 WBC (Bld) 1.9 % 0-5 [facility] Bilirubin [Mass/Vol] 0.80 mg/dL 0.20-1.00 [facility] Comment on above: For patients on eltr ombopag therapy, use of Dimension [place] TBIL is not recommended. Chloride [Moles/Vol] 102 mmol/L 98-107 [facility] Eosinophils/100 WBC (Bld) 1.9 % 0-5 [facility] Glucose [Mass/Vol] 118 mg/dL 74-106 [facility] Comment on above: Fasting Glucose resu lt from 100 to 125 mg/dL suggests IMPAIRED HOMEOSTASIS per A.D.A. criteria. Neutrophils (Bld) [#/Vol] 4.2 10*3/uL 2.0-7.7 [facility] Neutrophils/100 WBC (Bld) 61.6 % 47-70 [facility] Potassium [Moles/Vol] 4.0 mmol/L 3.5-5.1 [facility] Protein [Mass/Vol] 7.5 g/dL 6.4-8.2 [facility] Sodium [Moles/Vol] 136 mmol/L 136-145 [facility] WBC (Bld) [#/Vol] 6.8 10*3/uL 4.4-11.0 [facility] Blood erythrocytes count (nu mber/volume)Ordered By: Marshall Bear on 08-21-2023 RBC (Bld) [#/Vol] 4.47 10*6/uL 4.6-6.2 [facility] Blood hemoglobin measurement (mass/volume)Ordered By: Marshall Bera on 08-21-2023 Hemoglobin (Bld) [Mass/Vol] 12.8 g/dL 13.0-16.5 [facility] Blood lymphocytes/100 leukoc ytesOrdered By: Marshall Bear on 08-21-2023 Lymphocytes/100 WBC (Bld) 27.5 % 19-41 [facility] Blood monocytes/100 leukocyt esOrdered By: Marshall Bear on 08-21-2023 Monocytes/100 WBC (Bld) 8.0 % 0-10 [facility] Blood platelet mean volumeOr dered By: Marshall Bear on 08-21-2023 Platelet mean volume (Bld) [Entitic vol] 8.2 fL 6.2-12.0 [facility] Determination of erythrocyte mean corpuscular volume (MCV)Ordered By: Marshall Bear on 08-21-2023 MCV (RBC) [Entitic vol] 89.9 fL 80-94 [facility] Hematocrit Auto (Bld) [Volum e fraction]Ordered By: Marshall Bear on 08-21-2023 Hematocrit (Bld) [Volume fraction] 40.2 % 40-54 [facility] Laboratory - Chemistry and C hemistry - challengeOrdered By: Marshall Bear on 08-21-2023 ALP [Catalytic activity/Vol] 117 U/L 45-117 [facility] ALT [Catalytic activity/Vol] 28 U/L 16-61 [facility] CO2 [Moles/Vol] 28.0 mmol/L 21.0-32.0 [facility] Globulin (S) [Mass/Vol] 4.0 g/dL 2.2-4.2 [facility] Magnesium [Mass/Vol] 1.9 mg/dL 1.6-2.6 [facility] Urea nitrogen/Creatinine [Mass ratio] 19.7 mg/mg 10-20 [facility] Laboratory - Hematology and Cell countsOrdered By: Marshall Bear on 08-21-2023 Erythrocyte distribution width (RBC) [Entitic vol] 41.7 fL 35.1-43.9 [facility] Erythrocyte distribution width (RBC) [Ratio] 12.7 % 11.6-14.6 [facility] Immature granulocytes/100 WBC (Bld) 0.600 % 0.0-0.9 [facility] Comment on above: IG% - Immature Granu locytes (promyelocytes, myelocytes and metamyelocytes) > 1% indicates that a LEFT SHIFT is Present. MCH (RBC) [Entitic mass] 28.6 pg 27.0-32.0 [facility] Nucleated RBC/100 WBC (Bld) [Ratio] 0 % 0-5 [facility] MCHC Auto (RBC) [Mass/Vol]Or dered By: Marshall Bear on 08-21-2023 MCHC (RBC) [Mass/Vol] 31.8 g/dL 32-36 [facility] No Panel InformationOrdered By: Marshall Bear on 08-21-2023 Estimated GFR (MDRD) Amer 105 mL/min >60 [facility] Comment on above: GFR Calc Estimated GFR (MDRD) Non-Af Amer 87 mL/min >60 [facility] Comment on above: Non- GFR Calc Prostate Specific Antigen Total 1.95 ng/mL 0.0-4.0 [facility] Comment on above: This test was perfor med using the TPSA assay method for [employer] chemistry system. Values obtained with differentassay methods cannot be used interchangably.When changing PSA assays in the course of monitoring apatient, additional sequential testing should be carriedout to confirm baseline values. Thyroid Stimulating Hormone (TSH) 3.05 uIU/mL 0.358-3.74 [facility] Vitamin D 25-Hydroxy 42.4 ng/mL [facility] Comment on above: Vitamin D 25(OH) Sta tus Range Deficiency <20 ng/mL (50nmol/L) Insufficiency 20 - 30 ng/mL (50 - 75 nmol/L) Sufficiency 30 - 100 ng/mL (75 - 250 nmol/L) Toxicity >100 ng/mL (>250 nmol/L) 28.6 pg 27.0-32.0 [facility] 12.7 % 11.6-14.6 [facility] 41.7 fl 35.1-43.9 [facility] 0.600 % 0.0-0.9 [facility] 0 % 0-5 [facility] 87 mL/min >60 [facility] 105 mL/min >60 [facility] 19.7 RATIO 10-20 [facility] 4.0 g/dL 2.2-4.2 [facility] 117 U/L 45-117 [facility] 28 U/L 16-61 [facility] 1.9 mg/dL 1.6-2.6 [facility] 28.0 mmol/L 21.0-32.0 [facility] 3.05 uIU/mL 0.358-3.74 [facility] 1.95 ng/mL 0.0-4.0 [facility] 42.4 ng/mL [facility] Platelets bldOrdered By: Kristen Bear on 08-21-2023 Platelets (Bld) [#/Vol] 320 10*3/uL 150-450 [facility] Serum or plasma albumin elver urement (mass/volume)Ordered By: Marshall Bear on 08-21-2023 Albumin [Mass/Vol] 3.5 g/dL 3.2-5.0 [facility] Serum or plasma albumin/glob ulin mass ratioOrdered By: Marshall Bear on 08-21-2023 Albumin/Globulin [Mass ratio] 0.9 {ratio} 0.9-2.4 [facility] Serum or plasma calcium elver urement (mass/volume)Ordered By: Marshall Bear on 08-21-2023 Calcium [Mass/Vol] 9.2 mg/dL 8.5-10.1 [facility] Serum or plasma creatinine m easurement (mass/volume)Ordered By: Marshall Bear on 08-21-2023 Creatinine [Mass/Vol] 0.91 mg/dL 0.70-1.30 [facility] Comment on above: The validity of the calculated GFR & GFRAA in patients over 70 years has not been determined. Clinical correlation is essential. Serum or plasma urea nitroge n measurement (mass/volume)Ordered By: Marshall Bear on 08-21-2023 Urea nitrogen [Mass/Vol] 18 mg/dL 7-18 [facility] Thin prep Papanicolaou smear with manual screeningOrdered By: Marshall Bear on 08-21-2023 Thin prep Papanicolaou smear with manual screening 16 U/L 15-37 [facility] Thin prep Papanicolaou smear with manual screening 6 5-15 [facility] Absolute lymphocyte countOrd ered By: Elvia Pineda on 08-14-2023 Lymphocytes Auto (Unsp spec) [#/Vol] 2.03 10*3/uL 0.83-4.51 [facility] Basophil percentageOrdered B y: Elvia Pineda on 08-14-2023 Basophil percentage 0 SEEN /hpf 0-5 [facility] Basophil percentage 168 mg/dL 74-106 [facility] Basophil percentage 7.3 g/dL 6.4-8.2 [facility] Basophil percentage 1.50 mg/dL 0.20-1.00 [facility] Basophil percentage 136 mmol/L 136-145 [facility] Basophil percentage 3.9 mmol/L 3.5-5.1 [facility] Basophil percentage 102 mmol/L 98-107 [facility] Basophil percentage 2.3 mmol/L 0.4-2.0 [facility] Basophils (Bld) [#/Vol] 9.5 10*3/uL 4.4-11.0 [facility] Basophils (Bld) [#/Vol] 6.3 10*3/uL 2.0-7.7 [facility] Basophils/100 WBC (Bld) 0.3 % 0-1 [facility] Basophils/100 WBC (Bld) 67.0 % 47-70 [facility] Basophils/100 WBC (Bld) 3.6 % 0-5 [facility] Bilirubin [Mass/Vol] 1.50 mg/dL 0.20-1.00 [facility] Comment on above: For patients on eltr ombopag therapy, use of Dimension [place] TBIL is not recommended. Chloride [Moles/Vol] 102 mmol/L 98-107 [facility] Eosinophils/100 WBC (Bld) 3.6 % 0-5 [facility] Glucose [Mass/Vol] 168 mg/dL 74-106 [facility] Comment on above: Fasting Glucose resu lt greater than or equal to 126 mg/dL suggests DIABETES MELLITUS per A.D.A. criteria. Lactate [Moles/Vol] 2.3 mmol/L 0.4-2.0 [facility] Comment on above: Critical Result(s) C alled at: 16:43:02 08/14/2023 by: Erica Eubanks to Thee Ramos. Results read back by same. Neutrophils (Bld) [#/Vol] 6.3 10*3/uL 2.0-7.7 [facility] Neutrophils/100 WBC (Bld) 67.0 % 47-70 [facility] Potassium [Moles/Vol] 3.9 mmol/L 3.5-5.1 [facility] Protein [Mass/Vol] 7.3 g/dL 6.4-8.2 [facility] Sodium [Moles/Vol] 136 mmol/L 136-145 [facility] WBC (Bld) [#/Vol] 9.5 10*3/uL 4.4-11.0 [facility] Bilirubin Test strip Ql (U)O rdered By: Elvia Pineda on 08-14-2023 Bilirubin Ql (U) Negative Negative [facility] Blood erythrocytes count (nu mber/volume)Ordered By: Elvia Pineda on 08-14-2023 RBC (Bld) [#/Vol] 4.64 10*6/uL 4.6-6.2 [facility] Blood hemoglobin measurement (mass/volume)Ordered By: Elvia Pineda on 08-14-2023 Hemoglobin (Bld) [Mass/Vol] 13.4 g/dL 13.0-16.5 [facility] Blood lymphocytes/100 leukoc ytesOrdered By: Elvia Pineda on 08-14-2023 Lymphocytes/100 WBC (Bld) 21.5 % 19-41 [facility] Blood monocytes/100 leukocyt esOrdered By: Elvia Pineda on 08-14-2023 Monocytes/100 WBC (Bld) 7.2 % 0-10 [facility] Blood platelet mean volumeOr dered By: Elvia Pineda on 08-14-2023 Platelet mean volume (Bld) [Entitic vol] 8.4 fL 6.2-12.0 [facility] Culture, urineOrdered By: Deepak Pineda on 08-14-2023 Bacteria identified Cx Nom (U) Culture exhibits no growth. [facility] Bacteria identified Cx Nom (U) Culture exhibits no growth. [facility] Determination of erythrocyte mean corpuscular volume (MCV)Ordered By: Elvia Pineda on 08-14-2023 MCV (RBC) [Entitic vol] 87.7 fL 80-94 [facility] Direct bilirubinOrdered By: Elvia Pineda on 08-14-2023 Bilirubin.direct [Mass/Vol] 0.31 mg/dL 0.00-0.30 [facility] Hematocrit Auto (Bld) [Volum e fraction]Ordered By: Elvia Pineda on 08-14-2023 Hematocrit (Bld) [Volume fraction] 40.7 % 40-54 [facility] INR in Blood by Coagulation assayOrdered By: Elvia Pineda on 08-14-2023 INR Coag (Bld) [Relative time] 0.9 {INR} [facility] Influenza virus A and B and SARS-CoV-2 (COVID-19) Ag panel - Upper respiratory specimOrdered By: Elvia Pineda on 08-14-2023 SARS-CoV-2 (COVID-19) RNA CHARLES+probe Ql (Resp) [facility] Ketones Test strip Ql (U)Ord ered By: Elvia Pineda on 08-14-2023 Ketones Ql (U) 5 mg/dl Negative [facility] Laboratory - Chemistry and C hemistry - challengeOrdered By: Elvia Pineda on 08-14-2023 ALP [Catalytic activity/Vol] 123 U/L 45-117 [facility] ALT [Catalytic activity/Vol] 30 U/L 16-61 [facility] CO2 [Moles/Vol] 28.0 mmol/L 21.0-32.0 [facility] Globulin (S) [Mass/Vol] 3.9 g/dL 2.2-4.2 [facility] Natriuretic peptide B (Bld) [Mass/Vol] 19.7 pg/mL 0-100 [facility] Urea nitrogen/Creatinine [Mass ratio] 19.7 mg/mg 10-20 [facility] Laboratory - CoagulationOrde red By: Elvia Pineda on 08-14-2023 aPTT Coag (Bld) [Time] 30.8 s 24.1-36.[address] [facility] PT Coag (PPP) [Time] 12.4 s 11.7-14.9 [facility] Laboratory - Hematology and Cell countsOrdered By: Elvia Pineda on 08-14-2023 Erythrocyte distribution width (RBC) [Entitic vol] 41.3 fL 35.1-43.9 [facility] Erythrocyte distribution width (RBC) [Ratio] 13.0 % 11.6-14.6 [facility] Immature granulocytes/100 WBC (Bld) 0.400 % 0.0-0.9 [facility] Comment on above: IG% - Immature Granu locytes (promyelocytes, myelocytes and metamyelocytes) > 1% indicates that a LEFT SHIFT is Present. MCH (RBC) [Entitic mass] 28.9 pg 27.0-32.0 [facility] Nucleated RBC/100 WBC (Bld) [Ratio] 0 % 0-5 [facility] Laboratory - Microbiology an d Antimicrobial susceptibilityOrdered By: Elvia Pineda on 08-14-2023 Bacteria identified Cx Nom (Bld) No growth in 5 days. [facility] MCHC Auto (RBC) [Mass/Vol]Or dered By: Elvia Pineda on 08-14-2023 MCHC (RBC) [Mass/Vol] 32.9 g/dL 32-36 [facility] Mucus LM Ql (Urine sed)Order ed By: Elvia Pineda on 08-14-2023 Mucus Ql (Urine sed) 0 SEEN /hpf [facility] Nitrite Test strip Ql (U)Ord ered By: Elvia iPneda on 08-14-2023 Nitrite Ql (U) Negative Negative [facility] No Panel InformationOrdered By: Elvia Pineda on 08-14-2023 No growth in 5 days. [facility] D-Dimer Quantitative (PE/DVT) 0.84 FEU/ug/m 0.27-0.49 [facility] Comment on above: D-Dimer ELEVATED (>0 .49): Additional studies and clinicalassessments are indicated to conclude diagnosis of:Deep Vein Thrombosis (DVT) or Pulmonary Embolism (PE)CRITICAL VALUE VERIFIED. CALLED TO NAVEEN WILD08/14/23 1703 Starr Eubanks.RESULTS READ BACK BY SAME . Estimated Creatinine Clearance Calc 53.77 ml/min [facility] Estimated GFR (MDRD) Amer 69 mL/min >60 [facility] Comment on above: GFR Calc Estimated GFR (MDRD) Non-Af Amer 57 mL/min >60 [facility] Comment on above: Non- GFR Calc Troponin I High Sensitivity 7 pg/mL 3.0-78.0 [facility] Comment on above: Please Note: [place] t Units and Gender Specific Reference Ranges. For more information see Policy Stat Procedure [place] High Sensitivity Troponin (TNIH) and attachments. 28.9 pg 27.0-32.0 [facility] 13.0 % 11.6-14.6 [facility] 41.3 fl 35.1-43.9 [facility] 0.400 % 0.0-0.9 [facility] 0 % 0-5 [facility] 12.4 SECONDS 11.7-14.9 [facility] 30.8 Seconds 24.1-36.2 [facility] 0.84 FEU/ug/m 0.27-0.49 [facility] 57 mL/min >60 [facility] 69 mL/min >60 [facility] 53.77 ml/min [facility] 19.7 RATIO 10-20 [facility] 3.9 g/dL 2.2-4.2 [facility] 7 pg/mL 3.0-78.0 [facility] 123 U/L 45-117 [facility] 30 U/L 16-61 [facility] 28.0 mmol/L 21.0-32.0 [facility] 19.7 pg/mL 0-100 [facility] Platelets bldOrdered By: Kezia Pineda on 08-14-2023 Platelets (Bld) [#/Vol] 298 10*3/uL 150-450 [facility] Protein Test strip Ql (U)Ord ered By: Elvia Pineda on 08-14-2023 Protein Ql (U) Negative Negative [facility] Serum or plasma albumin elver urement (mass/volume)Ordered By: Elvia Pineda on 08-14-2023 Albumin [Mass/Vol] 3.4 g/dL 3.2-5.0 [facility] Serum or plasma calcium elver urement (mass/volume)Ordered By: Elvia Pineda on 08-14-2023 Calcium [Mass/Vol] 9.4 mg/dL 8.5-10.1 [facility] Serum or plasma creatinine m easurement (mass/volume)Ordered By: Elvia Pineda on 08-14-2023 Creatinine [Mass/Vol] 1.32 mg/dL 0.70-1.30 [facility] Comment on above: The validity of the calculated GFR & GFRAA in patients over 70 years has not been determined. Clinical correlation is essential. Serum or plasma urea nitroge n measurement (mass/volume)Ordered By: Elvia Pineda on 08-14-2023 Urea nitrogen [Mass/Vol] 26 mg/dL 7-18 [facility] Squamous epithelial cells de tection in urine sediment by light microscopyOrdered By: Elvia Pineda on 08-14-2023 Epithelial cells.squamous LM Ql (Urine sed) 0 SEEN /hpf 0-5 [facility] Thin prep Papanicolaou smear with manual screeningOrdered By: Elvia Pineda on 08-14-2023 Thin prep Papanicolaou smear with manual screening 17 U/L 15-37 [facility] Thin prep Papanicolaou smear with manual screening 6 5-15 [facility] Upper respiratory specimen i nfluenza A virus, influenza B virus, and severe acute resOrdered By: Elvia Pineda on 08-14-2023 Upper respiratory specimen influenza A virus, influenza B virus, and severe acute res [facility] Upper respiratory specimen influenza A virus, influenza B virus, and severe acute res [facility] Urine blood detectionOrdered By: Elvia Pineda on 08-14-2023 RBC Ql (U) Negative Negative [facility] RBC Ql (U) 0 SEEN /hpf 0-5 [facility] Urine clarityOrdered By: Kezia Pineda on 08-14-2023 Clarity (U) Sl. Cloudy Clear [facility] Urine color determinationOrd ered By: Elvia Pineda on 08-14-2023 Color (U) Yellow Yellow [facility] Urine glucose detectionOrder ed By: Elvia Pineda on 08-14-2023 Glucose Ql (U) Normal mg/dl Normal [facility] Urine leukocyte esterase det ection by dipstickOrdered By: Elvia Pineda on 08-14-2023 Leukocyte esterase Test strip Ql (U) Negative Negative [facility] Urine pHOrdered By: Elvia Pineda on 08-14-2023 pH (U) 7.0 [pH] 5.0 - 8.0 [facility] Urine sediment bacteria coun t by microscopy (number/high power field)Ordered By: Elvia Pineda on 08-14-2023 Bacteria LM.HPF (Urine sed) [#/Area] 0 /[HPF] None Seen [facility] Urine specific gravity measu rementOrdered By: Elvia Pineda on 08-14-2023 Specific gravity (U) [Rel density] 1.015 1.002-1.030 [facility] Urobilinogen Auto test strip Ql (U)Ordered By: Elvia Pineda on 08-14-2023 Urobilinogen Ql (U) 4 mg/dl Normal [facility] Absolute lymphocyte countOrd ered By: Elvia Pineda on 08-04-2023 Lymphocytes Auto (Unsp spec) [#/Vol] 3.14 10*3/uL 0.83-4.51 [facility] Basophil percentageOrdered B y: Elvia Pineda on 08-04-2023 Basophil percentage 0 SEEN /hpf 0-5 [facility] Basophil percentage 204 mg/dL 74-106 [facility] Basophil percentage 137 mmol/L 136-145 [facility] Basophil percentage 4.0 mmol/L 3.5-5.1 [facility] Basophil percentage 104 mmol/L 98-107 [facility] Basophils (Bld) [#/Vol] 11.9 10*3/uL 4.4-11.0 [facility] Basophils (Bld) [#/Vol] 7.6 10*3/uL 2.0-7.7 [facility] Basophils/100 WBC (Bld) 0.7 % 0-1 [facility] Basophils/100 WBC (Bld) 63.6 % 47-70 [facility] Basophils/100 WBC (Bld) 1.5 % 0-5 [facility] Chloride [Moles/Vol] 104 mmol/L 98-107 [facility] Eosinophils/100 WBC (Bld) 1.5 % 0-5 [facility] Glucose [Mass/Vol] 204 mg/dL 74-106 [facility] Comment on above: Glucose result great er than or equal to 200 mg/dLsuggests DIABETES MELLITUS per A.D.A. criteria. Neutrophils (Bld) [#/Vol] 7.6 10*3/uL 2.0-7.7 [facility] Neutrophils/100 WBC (Bld) 63.6 % 47-70 [facility] Potassium [Moles/Vol] 4.0 mmol/L 3.5-5.1 [facility] Sodium [Moles/Vol] 137 mmol/L 136-145 [facility] WBC (Bld) [#/Vol] 11.9 10*3/uL 4.4-11.0 [facility] Bilirubin Test strip Ql (U)O rdered By: Elvia Pineda on 08-04-2023 Bilirubin Ql (U) Negative Negative [facility] Blood erythrocytes count (nu mber/volume)Ordered By: Elvia Pineda on 08-04-2023 RBC (Bld) [#/Vol] 4.80 10*6/uL 4.6-6.2 [facility] Blood hemoglobin measurement (mass/volume)Ordered By: Elvia Pineda on 08-04-2023 Hemoglobin (Bld) [Mass/Vol] 13.8 g/dL 13.0-16.5 [facility] Blood lymphocytes/100 leukoc ytesOrdered By: Elvia Pineda on 08-04-2023 Lymphocytes/100 WBC (Bld) 26.4 % 19-41 [facility] Blood monocytes/100 leukocyt esOrdered By: Elvia Pineda on 08-04-2023 Monocytes/100 WBC (Bld) 7.1 % 0-10 [facility] Blood platelet mean volumeOr dered By: Elvia Pineda on 08-04-2023 Platelet mean volume (Bld) [Entitic vol] 8.2 fL 6.2-12.0 [facility] Determination of erythrocyte mean corpuscular volume (MCV)Ordered By: Elvia Pineda on 08-04-2023 MCV (RBC) [Entitic vol] 89.0 fL 80-94 [facility] Erythrocyte sedimentation ra teOrdered By: Elvia Pineda on 08-04-2023 ESR (Bld) [Velocity] 20 mm/h 0-20 [facility] Hematocrit Auto (Bld) [Volum e fraction]Ordered By: Elvia Pineda on 08-04-2023 Hematocrit (Bld) [Volume fraction] 42.7 % 40-54 [facility] Ketones Test strip Ql (U)Ord ered By: Elvia Pineda on 08-04-2023 Ketones Ql (U) Negative Negative [facility] Laboratory - Chemistry and C hemistry - challengeOrdered By: Elvia Pineda on 08-04-2023 CO2 [Moles/Vol] 29.0 mmol/L 21.0-32.0 [facility] Urea nitrogen/Creatinine [Mass ratio] 24.7 mg/mg 10-20 [facility] Laboratory - Hematology and Cell countsOrdered By: Elvia Pineda on 08-04-2023 Erythrocyte distribution width (RBC) [Entitic vol] 42.5 fL 35.1-43.9 [facility] Erythrocyte distribution width (RBC) [Ratio] 12.9 % 11.6-14.6 [facility] Immature granulocytes/100 WBC (Bld) 0.700 % 0.0-0.9 [facility] Comment on above: IG% - Immature Granu locytes (promyelocytes, myelocytes and metamyelocytes) > 1% indicates that a LEFT SHIFT is Present. MCH (RBC) [Entitic mass] 28.8 pg 27.0-32.0 [facility] Nucleated RBC/100 WBC (Bld) [Ratio] 0 % 0-5 [facility] MCHC Auto (RBC) [Mass/Vol]Or dered By: Elvia Pineda on 08-04-2023 MCHC (RBC) [Mass/Vol] 32.3 g/dL 32-36 [facility] Mucus LM Ql (Urine sed)Order ed By: Elvia Pineda on 08-04-2023 Mucus Ql (Urine sed) 0 SEEN /hpf [facility] Nitrite Test strip Ql (U)Ord ered By: Elvia Pineda on 08-04-2023 Nitrite Ql (U) Negative Negative [facility] No Panel InformationOrdered By: Elvia Pineda on 08-04-2023 Estimated Creatinine Clearance Calc 73.17 ml/min [facility] Estimated GFR (MDRD) Amer 98 mL/min >60 [facility] Comment on above: GFR Calc Estimated GFR (MDRD) Non-Af Amer 81 mL/min >60 [facility] Comment on above: Non- GFR Calc 28.8 pg 27.0-32.0 [facility] 12.9 % 11.6-14.6 [facility] 42.5 fl 35.1-43.9 [facility] 0.700 % 0.0-0.9 [facility] 0 % 0-5 [facility] 81 mL/min >60 [facility] 98 mL/min >60 [facility] 73.17 ml/min [facility] 24.7 RATIO 10-20 [facility] 29.0 mmol/L 21.0-32.0 [facility] Platelets bldOrdered By: Kezia Pineda on 08-04-2023 Platelets (Bld) [#/Vol] 356 10*3/uL 150-450 [facility] Protein Test strip Ql (U)Ord ered By: Elvia Pineda on 08-04-2023 Protein Ql (U) Negative Negative [facility] Serum or plasma C reactive p rotein measurement (mass/volume)Ordered By: Elvia Pineda on 08-04-2023 CRP [Mass/Vol] 19.00 mg/L 0.0-3.0 [facility] Comment on above: C-Reactive Protein ( CRP) provides useful information for thediagnosis, therapy and monitoring of inflammatory processesand associated diseases. For the evaluation of Relative Riskfor Cardiovascular Disease, a High Sensitivity CRP (HSCRP)should be ordered. Serum or plasma calcium elver urement (mass/volume)Ordered By: Elvia Pineda on 08-04-2023 Calcium [Mass/Vol] 9.8 mg/dL 8.5-10.1 [facility] Serum or plasma creatinine m easurement (mass/volume)Ordered By: Elvia Pineda on 08-04-2023 Creatinine [Mass/Vol] 0.97 mg/dL 0.70-1.30 [facility] Comment on above: The validity of the calculated GFR & GFRAA in patients over 70 years has not been determined. Clinical correlation is essential. Serum or plasma urea nitroge n measurement (mass/volume)Ordered By: Elvia Pineda on 08-04-2023 Urea nitrogen [Mass/Vol] 24 mg/dL 7-18 [facility] Squamous epithelial cells de tection in urine sediment by light microscopyOrdered By: Elvia Pineda on 08-04-2023 Epithelial cells.squamous LM Ql (Urine sed) 0 SEEN /hpf 0-5 [facility] Thin prep Papanicolaou smear with manual screeningOrdered By: Elvia Pineda on 08-04-2023 Thin prep Papanicolaou smear with manual screening 4 5-15 [facility] Urine blood detectionOrdered By: Elvia Pineda on 08-04-2023 RBC Ql (U) Negative Negative [facility] RBC Ql (U) 0 SEEN /hpf 0-5 [facility] Urine clarityOrdered By: Kezia Pineda on 08-04-2023 Clarity (U) Clear Clear [facility] Urine color determinationOrd ered By: Elvia Pineda on 08-04-2023 Color (U) Yellow Yellow [facility] Urine glucose detectionOrder ed By: Elvia Pineda on 08-04-2023 Glucose Ql (U) 100 mg/dl Normal [facility] Urine leukocyte esterase det ection by dipstickOrdered By: Elvia Pineda on 08-04-2023 Leukocyte esterase Test strip Ql (U) Negative Negative [facility] Urine pHOrdered By: Elvia Pineda on 08-04-2023 pH (U) 6.0 [pH] 5.0 - 8.0 [facility] Urine sediment bacteria coun t by microscopy (number/high power field)Ordered By: Elvia Pineda on 08-04-2023 Bacteria LM.HPF (Urine sed) [#/Area] 0 /[HPF] None Seen [facility] Urine specific gravity measu rementOrdered By: Elvia Pineda on 08-04-2023 Specific gravity (U) [Rel density] 1.010 1.002-1.030 [facility] Urobilinogen Auto test strip Ql (U)Ordered By: Elvia Pineda on 08-04-2023 Urobilinogen Ql (U) 1 mg/dl Normal [facility] Glucose Glucometer (BldC) [M ass/Vol]Ordered By: Ventura Godoy on 07-20-2023 Glucose [Mass/Vol] 134 mg/dL 74-106 [facility] Comment on above: MANAGEMENT OF PATIEN T CARE PER NURSING PROTOCOL Glucose [Mass/Vol] 129 mg/dL 74-106 [facility] Comment on above: MANAGEMENT OF PATIEN T CARE PER NURSING PROTOCOL Absolute lymphocyte countOrd ered By: Dimas Clinton on 07-19-2023 Lymphocytes Auto (Unsp spec) [#/Vol] 1.51 10*3/uL 0.83-4.51 [facility] Basophil percentageOrdered B y: Dimas Clinton on 07-19-2023 Basophil percentage 170 mg/dL 74-106 [facility] Basophil percentage 141 mmol/L 136-145 [facility] Basophil percentage 3.8 mmol/L 3.5-5.1 [facility] Basophil percentage 108 mmol/L 98-107 [facility] Basophils (Bld) [#/Vol] 11.1 10*3/uL 4.4-11.0 [facility] Basophils (Bld) [#/Vol] 8.6 10*3/uL 2.0-7.7 [facility] Basophils/100 WBC (Bld) 0.2 % 0-1 [facility] Basophils/100 WBC (Bld) 77.7 % 47-70 [facility] Basophils/100 WBC (Bld) 0.1 % 0-5 [facility] Chloride [Moles/Vol] 108 mmol/L 98-107 [facility] Eosinophils/100 WBC (Bld) 0.1 % 0-5 [facility] Glucose [Mass/Vol] 170 mg/dL 74-106 [facility] Comment on above: Fasting Glucose resu lt greater than or equal to 126 mg/dL suggests DIABETES MELLITUS per A.D.A. criteria. Neutrophils (Bld) [#/Vol] 8.6 10*3/uL 2.0-7.7 [facility] Neutrophils/100 WBC (Bld) 77.7 % 47-70 [facility] Potassium [Moles/Vol] 3.8 mmol/L 3.5-5.1 [facility] Sodium [Moles/Vol] 141 mmol/L 136-145 [facility] WBC (Bld) [#/Vol] 11.1 10*3/uL 4.4-11.0 [facility] Blood erythrocytes count (nu mber/volume)Ordered By: Dimas Clinton on 07-19-2023 RBC (Bld) [#/Vol] 4.32 10*6/uL 4.6-6.2 [facility] Blood hemoglobin measurement (mass/volume)Ordered By: Dimas Clinton on 07-19-2023 Hemoglobin (Bld) [Mass/Vol] 12.7 g/dL 13.0-16.5 [facility] Blood lymphocytes/100 leukoc ytesOrdered By: Dimas Clinton on 07-19-2023 Lymphocytes/100 WBC (Bld) 13.6 % 19-41 [facility] Blood monocytes/100 leukocyt esOrdered By: Dimas Clinton on 07-19-2023 Monocytes/100 WBC (Bld) 7.9 % 0-10 [facility] Blood platelet mean volumeOr dered By: Dimas Clinton on 07-19-2023 Platelet mean volume (Bld) [Entitic vol] 8.8 fL 6.2-12.0 [facility] Determination of erythrocyte mean corpuscular volume (MCV)Ordered By: Dimas Clinton on 07-19-2023 MCV (RBC) [Entitic vol] 89.6 fL 80-94 [facility] Hematocrit Auto (Bld) [Volum e fraction]Ordered By: Dimas Clinton on 07-19-2023 Hematocrit (Bld) [Volume fraction] 38.7 % 40-54 [facility] Laboratory - Chemistry and C hemistry - challengeOrdered By: Dimas Clinton on 07-19-2023 CO2 [Moles/Vol] 28.0 mmol/L 21.0-32.0 [facility] Urea nitrogen/Creatinine [Mass ratio] 21.6 mg/mg 10-20 [facility] Laboratory - Hematology and Cell countsOrdered By: Dimas Clinton on 07-19-2023 Erythrocyte distribution width (RBC) [Entitic vol] 43.0 fL 35.1-43.9 [facility] Erythrocyte distribution width (RBC) [Ratio] 13.2 % 11.6-14.6 [facility] Immature granulocytes/100 WBC (Bld) 0.500 % 0.0-0.9 [facility] Comment on above: IG% - Immature Granu locytes (promyelocytes, myelocytes and metamyelocytes) > 1% indicates that a LEFT SHIFT is Present. MCH (RBC) [Entitic mass] 29.4 pg 27.0-32.0 [facility] Nucleated RBC/100 WBC (Bld) [Ratio] 0 % 0-5 [facility] MCHC Auto (RBC) [Mass/Vol]Or dered By: Dimas Clinton on 07-19-2023 MCHC (RBC) [Mass/Vol] 32.8 g/dL 32-36 [facility] No Panel InformationOrdered By: Dimas Clinton on 07-19-2023 Estimated Creatinine Clearance Calc 76.31 ml/min [facility] Estimated GFR (MDRD) Amer 104 mL/min >60 [facility] Comment on above: GFR Calc Estimated GFR (MDRD) Non-Af Amer 86 mL/min >60 [facility] Comment on above: Non- GFR Calc 29.4 pg 27.0-32.0 [facility] 13.2 % 11.6-14.6 [facility] 43.0 fl 35.1-43.9 [facility] 0.500 % 0.0-0.9 [facility] 0 % 0-5 [facility] 86 mL/min >60 [facility] 104 mL/min >60 [facility] 76.31 ml/min [facility] 21.6 RATIO 10-20 [facility] 28.0 mmol/L 21.0-32.0 [facility] Platelets bldOrdered By: Shadi Clinton on 07-19-2023 Platelets (Bld) [#/Vol] 237 10*3/uL 150-450 [facility] Serum or plasma calcium elver urement (mass/volume)Ordered By: Dimas Clinton on 07-19-2023 Calcium [Mass/Vol] 8.8 mg/dL 8.5-10.1 [facility] Serum or plasma creatinine m easurement (mass/volume)Ordered By: Dimas Clinton on 07-19-2023 Creatinine [Mass/Vol] 0.93 mg/dL 0.70-1.30 [facility] Comment on above: The validity of the calculated GFR & GFRAA in patients over 70 years has not been determined. Clinical correlation is essential. Serum or plasma urea nitroge n measurement (mass/volume)Ordered By: Dimas Clinton on 07-19-2023 Urea nitrogen [Mass/Vol] 20 mg/dL 7-18 [facility] Thin prep Papanicolaou smear with manual screeningOrdered By: Dimas Clinton on 07-19-2023 Thin prep Papanicolaou smear with manual screening 5 5-15 [facility] HIV 1 and HIV-2 antibody ass ay with HIV-1 p24 antigen detectionOrdered By: Ventura Godoy on 07-05-2023 HIV 1+2 Ab+HIV1 p24 Ag IA Ql Non-Reactive Nonreactive [facility] Laboratory - Chemistry and C hemistry - challengeOrdered By: Vin Orellana on 07-05-2023 Magnesium [Mass/Vol] 2.1 mg/dL 1.6-2.6 [facility] No Panel InformationOrdered By: Ventura Godoy on 07-05-2023 Hepatitis A Antibody Total Negative Negative [facility] Comment on above: Comment: The HAV tot [...] HAVtotal antibody results to IgM (e.g., panel #[id number] HAVAntibody w/ Rfx).Performed at: [facility] Lab[address] [id number] Director: Jerald Wakefield PhD, Phone: [phone] Hepatitis C Antibody Non-Reactive Nonreactive [facility] Comment on above: Non Reactive: < 0.8 Equivocal: >/= 0.8 to < 1.0 Reactive: >/= 1.0The CDC recommends that a reactive/equivocal HCV antibody result be followed up by the HCV Nucleic Acid Amplificationtest (022480) Nasal Screen MRSA/MSSA [facility] Negative Negative [facility] Non-Reactive Nonreactive [facility] No Panel InformationOrdered By: Vin Orellana on 07-05-2023 2.1 mg/dL 1.6-2.6 [facility] Serum hepatitis B virus surf selina antibody IgG detectionOrdered By: Ventura Godoy on 07-05-2023 HBV surface IgG Ql (S) Non-Reactive [facility] Comment on above: Non Reactive: Incons istent with immunity less than <10 mIU/mL Reactive: Consistent with immunity greater than or equal to 10 mIU/mL Whole blood hemoglobin A1c/t otal hemoglobin ratio (mass fraction)Ordered By: Vin Orellana on 07-05-2023 HbA1c (Bld) [Mass fraction] 6.7 % 3.8-5.6 [facility] Comment on above: Normal < 5.7 % Predi abetic 5.7 - 6.4 % Diabetic >or= 6.5 % Please note range changes. Culture, urineOrdered By: Paulo Lema on 05-20-2023 Bacteria identified Cx Nom (U) Culture exhibits no growth. [facility] Basophil percentageOrdered B y: Marshall Bear on 05-19-2023 Basophil percentage 0 SEEN /hpf 0-5 [facility] Bilirubin Test strip Ql (U)O rdered By: Marshall Bear on 05-19-2023 Bilirubin Ql (U) Negative Negative [facility] Culture, urineOrdered By: Paulo Lema on 05-19-2023 Bacteria identified Cx Nom (U) Culture exhibits no growth. [facility] Ketones Test strip Ql (U)Ord ered By: Marshall Bear on 05-19-2023 Ketones Ql (U) 5 mg/dl Negative [facility] Laboratory - Chemistry and C hemistry - challengeon 05-19-2023 Bilirubin Ql (U) Negative [facility] Glucose Ql (U) Negative [facility] Ketones Ql (U) Trace (5) [facility] pH (U) 6.5 [pH] [facility] Specific gravity (U) [Rel density] 1.010 [facility] Urobilinogen (U) [Mass/Vol] 0.5068052 mg/dL [facility] Laboratory - Hematology and Cell countson 05-19-2023 Hemoglobin Ql (U) Negative [facility] Laboratory - Specimen inform ationon 05-19-2023 Clarity (U) Cloudy [facility] Color (U) ORANGE [facility] Laboratory - Urinalysison Nitrite Ql (U) Negative [facility] Protein Ql (U) Negative [facility] Mucus LM Ql (Urine sed)Order ed By: Marshall Bear on 05-19-2023 Mucus Ql (Urine sed) 0 SEEN /hpf [facility] Nitrite Test strip Ql (U)Ord ered By: Marshall Bear on 05-19-2023 Nitrite Ql (U) Negative Negative [facility] No Panel Informationon 05-19 Urine Leukocytes Positive [facility] Urine Non-Hemolyzed Blood Negative [facility] Protein Test strip Ql (U)Ord ered By: Marshall Bear on 05-19-2023 Protein Ql (U) Negative Negative [facility] Squamous epithelial cells de tection in urine sediment by light microscopyOrdered By: Marshall Bear on 05-19-2023 Epithelial cells.squamous LM Ql (Urine sed) 0 SEEN /hpf 0-5 [facility] Urine blood detectionOrdered By: Marshall Bear on 05-19-2023 RBC Ql (U) Negative Negative [facility] RBC Ql (U) 0 SEEN /hpf 0-5 [facility] Urine clarityOrdered By: Kristen Bear on 05-19-2023 Clarity (U) Clear Clear [facility] Urine color determinationOrd ered By: Marshall Bear on 05-19-2023 Color (U) Yellow Yellow [facility] Urine glucose detectionOrder ed By: Marshall Bear on 05-19-2023 Glucose Ql (U) Normal mg/dl Normal [facility] Urine leukocyte esterase det ection by dipstickOrdered By: Marshall Bear on 05-19-2023 Leukocyte esterase Test strip Ql (U) Negative Negative [facility] Urine pHOrdered By: Marshall villalba on 05-19-2023 pH (U) 7.0 [pH] 5.0 - 8.0 [facility] Urine sediment bacteria coun t by microscopy (number/high power field)Ordered By: Marshall Bear on 05-19-2023 Bacteria LM.HPF (Urine sed) [#/Area] 0 /[HPF] None Seen [facility] Urine specific gravity measu rementOrdered By: Marshall Bear on 05-19-2023 Specific gravity (U) [Rel density] 1.010 1.002-1.030 [facility] Urobilinogen Auto test strip Ql (U)Ordered By: Marshall Bear on 05-19-2023 Urobilinogen Ql (U) Normal mg/dl Normal [facility] Glucose Glucometer (BldC) [M ass/Vol]Ordered By: Julio Garcia on 05-15-2023 Glucose [Mass/Vol] 165 mg/dL 74-106 [facility] Comment on above: MANAGEMENT OF PATIEN T CARE PER NURSING PROTOCOL Absolute lymphocyte countOrd ered By: Ryan Vásquez on 05-11-2023 Lymphocytes Auto (Unsp spec) [#/Vol] 2.23 10*3/uL 0.83-4.51 [facility] Basophil percentageOrdered B y: Ryan Vásquez on 05-11-2023 Basophil percentage 0 SEEN /hpf 0-5 [facility] Basophils/100 WBC (Bld) 0.8 % 0-1 [facility] Chloride [Moles/Vol] 101 mmol/L 98-107 [facility] Eosinophils/100 WBC (Bld) 2.0 % 0-5 [facility] Glucose [Mass/Vol] 120 mg/dL 74-106 [facility] Comment on above: Fasting Glucose resu lt from 100 to 125 mg/dL suggests IMPAIRED HOMEOSTASIS per A.D.A. criteria. Neutrophils (Bld) [#/Vol] 5.6 10*3/uL 2.0-7.7 [facility] Neutrophils/100 WBC (Bld) 61.9 % 47-70 [facility] Potassium [Moles/Vol] 3.8 mmol/L 3.5-5.1 [facility] Sodium [Moles/Vol] 135 mmol/L 136-145 [facility] WBC (Bld) [#/Vol] 9.1 10*3/uL 4.4-11.0 [facility] Bilirubin Test strip Ql (U)O rdered By: Ryan Vásquez on 05-11-2023 Bilirubin Ql (U) Negative Negative [facility] Blood erythrocytes count (nu mber/volume)Ordered By: Ryan Vásquez on 05-11-2023 RBC (Bld) [#/Vol] 5.29 10*6/uL 4.6-6.2 [facility] Blood hemoglobin measurement (mass/volume)Ordered By: Ryan Vásquez on 05-11-2023 Hemoglobin (Bld) [Mass/Vol] 15.3 g/dL 13.0-16.5 [facility] Blood lymphocytes/100 leukoc ytesOrdered By: Ryan Vásquez on 05-11-2023 Lymphocytes/100 WBC (Bld) 24.6 % 19-41 [facility] Blood monocytes/100 leukocyt esOrdered By: Ryan Vásquez on 05-11-2023 Monocytes/100 WBC (Bld) 10.4 % 0-10 [facility] Blood platelet mean volumeOr dered By: Ryan Vásquez on 05-11-2023 Platelet mean volume (Bld) [Entitic vol] 8.6 fL 6.2-12.0 [facility] Determination of erythrocyte mean corpuscular volume (MCV)Ordered By: Ryan Vásquez on 05-11-2023 MCV (RBC) [Entitic vol] 88.5 fL 80-94 [facility] Hematocrit Auto (Bld) [Volum e fraction]Ordered By: Ryan Vásquez on 05-11-2023 Hematocrit (Bld) [Volume fraction] 46.8 % 40-54 [facility] Ketones Test strip Ql (U)Ord ered By: Ryan Vásquez on 05-11-2023 Ketones Ql (U) Negative Negative [facility] Laboratory - Chemistry and C hemistry - challengeOrdered By: Ryan Vásquez on 05-11-2023 CO2 [Moles/Vol] 31.0 mmol/L 21.0-32.0 [facility] Urea nitrogen/Creatinine [Mass ratio] 17.7 mg/mg 10-20 [facility] Laboratory - Hematology and Cell countsOrdered By: Ryan Vásquez on 05-11-2023 Erythrocyte distribution width (RBC) [Entitic vol] 40.3 fL 35.1-43.9 [facility] Erythrocyte distribution width (RBC) [Ratio] 12.4 % 11.6-14.6 [facility] Immature granulocytes/100 WBC (Bld) 0.300 % 0.0-0.9 [facility] Comment on above: IG% - Immature Granu locytes (promyelocytes, myelocytes and metamyelocytes) > 1% indicates that a LEFT SHIFT is Present. MCH (RBC) [Entitic mass] 28.9 pg 27.0-32.0 [facility] Nucleated RBC/100 WBC (Bld) [Ratio] 0 % 0-5 [facility] MCHC Auto (RBC) [Mass/Vol]Or dered By: Ryan Vásquez on 05-11-2023 MCHC (RBC) [Mass/Vol] 32.7 g/dL 32-36 [facility] Mucus LM Ql (Urine sed)Order ed By: Ryan Vásquez on 05-11-2023 Mucus Ql (Urine sed) 0 SEEN /hpf [facility] Nitrite Test strip Ql (U)Ord ered By: Ryan Váqsuez on 05-11-2023 Nitrite Ql (U) Negative Negative [facility] No Panel InformationOrdered By: Ryan Vásquez on 05-11-2023 Estimated Creatinine Clearance Calc 62.81 ml/min [facility] Estimated GFR (MDRD) Amer 83 mL/min >60 [facility] Comment on above: GFR Calc Estimated GFR (MDRD) Non-Af Amer 68 mL/min >60 [facility] Comment on above: Non- GFR Calc Platelets bldOrdered By: Yuan Vásquez on 05-11-2023 Platelets (Bld) [#/Vol] 286 10*3/uL 150-450 [facility] Protein Test strip Ql (U)Ord ered By: Ryan Vásquez on 05-11-2023 Protein Ql (U) Negative Negative [facility] Serum or plasma calcium elver urement (mass/volume)Ordered By: Ryan Vásquez on 05-11-2023 Calcium [Mass/Vol] 9.2 mg/dL 8.5-10.1 [facility] Serum or plasma creatinine m easurement (mass/volume)Ordered By: Ryan Vásquez on 05-11-2023 Creatinine [Mass/Vol] 1.13 mg/dL 0.70-1.30 [facility] Comment on above: The validity of the calculated GFR & GFRAA in patients over 70 years has not been determined. Clinical correlation is essential. Serum or plasma urea nitroge n measurement (mass/volume)Ordered By: Ryan Vásquez on 05-11-2023 Urea nitrogen [Mass/Vol] 20 mg/dL 7-18 [facility] Squamous epithelial cells de tection in urine sediment by light microscopyOrdered By: Ryan Vásquez on 05-11-2023 Epithelial cells.squamous LM Ql (Urine sed) 0 SEEN /hpf 0-5 [facility] Thin prep Papanicolaou smear with manual screeningOrdered By: Ryan Vásquez on 05-11-2023 Thin prep Papanicolaou smear with manual screening 3 5-15 [facility] Urine blood detectionOrdered By: Ryan Vásquez on 05-11-2023 RBC Ql (U) Negative Negative [facility] RBC Ql (U) 0 SEEN /hpf 0-5 [facility] Urine clarityOrdered By: Yuan Vásquez on 05-11-2023 Clarity (U) Sl. Cloudy Clear [facility] Urine color determinationOrd ered By: Ryan Vásquez on 05-11-2023 Color (U) Yellow Yellow [facility] Urine glucose detectionOrder ed By: Ryan Vásquez on 05-11-2023 Glucose Ql (U) Normal mg/dl Normal [facility] Urine leukocyte esterase det ection by dipstickOrdered By: Ryan Vásquez on 05-11-2023 Leukocyte esterase Test strip Ql (U) Negative Negative [facility] Urine pHOrdered By: Ryan ornelas on 05-11-2023 pH (U) 6.0 [pH] 5.0 - 8.0 [facility] Urine sediment bacteria coun t by microscopy (number/high power field)Ordered By: Ryan Vásquez on 05-11-2023 Bacteria LM.HPF (Urine sed) [#/Area] 0 /[HPF] None Seen [facility] Urine specific gravity measu rementOrdered By: Ryan Vásquez on 05-11-2023 Specific gravity (U) [Rel density] 1.005 1.002-1.030 [facility] Urobilinogen Auto test strip Ql (U)Ordered By: Ryan Vásquez on 05-11-2023 Urobilinogen Ql (U) Normal mg/dl Normal [facility] Basophil percentageOrdered B y: Reyna Mckeon on 03-21-2023 Creatinine [Mass/Vol] 1.0 mg/dL 0.70-1.30 [facility] No Panel InformationOrdered By: Reyna Mckeon on 03-21-2023 Bedside Estimated GFR (eGFR) > 60.0000 mL/min >60 [facility] CNOVon 11-18-2022 CNOV Office Visit ([facility]ENSWS ) -- JARET BATES ([id number]) 1955 M NFR Date Time Provider Department 11/18/22 9:30 AM EDILIA HUNTER During your visit today, we [...] - CHOLECYSTECTOMY NAME: Jaret Bates CLINIC NO.: [id number] DATE OF SERVICE: 11/18/2022 : 1955 REFERRING [...] to your office visit today with the [facility]. INSTRUCTIONS FOLLOWING YOU R (more content not included)... Normal [facility] Absolute lymphocyte countOrd ered By: Dr. Pineda on 11-14-2022 Lymphocytes Auto (Unsp spec) [#/Vol] 2.56 10*3/uL 0.83-4.51 [facility] Basophil percentageOrdered B y: Dr. Pineda on 11-14-2022 Basophil percentage 0 SEEN /hpf 0-5 [facility] Basophils/100 WBC (Bld) 0.6 % 0-1 [facility] Bilirubin [Mass/Vol] 1.60 mg/dL 0.20-1.00 [facility] Comment on above: For patients on eltr ombopag therapy, use of Dimension [place] TBIL is not recommended. Chloride [Moles/Vol] 99 mmol/L 98-107 [facility] Eosinophils/100 WBC (Bld) 1.8 % 0-5 [facility] Glucose [Mass/Vol] 118 mg/dL 74-106 [facility] Comment on above: Fasting Glucose resu lt from 100 to 125 mg/dL suggests IMPAIRED HOMEOSTASIS per A.D.A. criteria. Neutrophils (Bld) [#/Vol] 8.6 10*3/uL 2.0-7.7 [facility] Neutrophils/100 WBC (Bld) 69.2 % 47-70 [facility] Potassium [Moles/Vol] 3.4 mmol/L 3.5-5.1 [facility] Protein [Mass/Vol] 8.7 g/dL 6.4-8.2 [facility] Sodium [Moles/Vol] 137 mmol/L 136-145 [facility] WBC (Bld) [#/Vol] 12.4 10*3/uL 4.4-11.0 [facility] Bilirubin Test strip Ql (U)O rdered By: Dr. Pineda on 11-14-2022 Bilirubin Ql (U) Negative Negative [facility] Blood erythrocytes count (nu mber/volume)Ordered By: Dr. Pineda on 11-14-2022 RBC (Bld) [#/Vol] 5.44 10*6/uL 4.6-6.2 [facility] Blood hemoglobin measurement (mass/volume)Ordered By: Dr. Pineda on 11-14-2022 Hemoglobin (Bld) [Mass/Vol] 16.0 g/dL 13.0-16.5 [facility] Blood lymphocytes/100 leukoc ytesOrdered By: Dr. Pineda on 11-14-2022 Lymphocytes/100 WBC (Bld) 20.7 % 19-41 [facility] Blood monocytes/100 leukocyt esOrdered By: Dr. Pineda on 11-14-2022 Monocytes/100 WBC (Bld) 7.3 % 0-10 [facility] Blood platelet mean volumeOr dered By: Dr. Pineda on 11-14-2022 Platelet mean volume (Bld) [Entitic vol] 8.5 fL 6.2-12.0 [facility] CNPNon 11-14-2022 CNPN Telephone ([employer]) -- JARET BATES ([id number]) 1955 M R Date Time Provider Department 11/14/22 JOSE JUAN PENA [employer] During your visit today, we recorded the [...] of the pain. They use [facility] in [place]. 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 Pena, stating that he does not work at their facility. I apologized to Alethea, stating that I would reach out and see who can update that paperwork and correct that error. MATIAS Winters LPN 11/14/2022 10:36 AM Signed Patient called back, patient is yelling in pain, advised patient to go to ER. Alethea asked if [facility] would treat patient, informed them yes they will however Dr Pena is not at that hospital and is doing surgeries in [place] today. voiced understanding. Alethea # [phone] Edilia Hunter PA-C 11/14/2022 10:39 AM Signed Yes, agree with urgent ED evaluation for severe abdominal pain Dayron Orozco LPN 11/14/2022 10:46 AM Signed Called patient back to updated. Alethea stated that she called 911 and ambulance was there. Carol Vega RN 11/14/2022 4:34 PM Signed Patient was evaluated at [facility] ER, CT scan of the [...] cholecystitis w* (more content not included)... Normal [facility] Determination of erythrocyte mean corpuscular volume (MCV)Ordered By: Dr. Pineda on 11-14-2022 MCV (RBC) [Entitic vol] 89.2 fL 80-94 [facility] Direct bilirubinOrdered By: Dr. Pineda on 11-14-2022 Bilirubin.direct [Mass/Vol] 0.32 mg/dL 0.00-0.30 [facility] Hematocrit Auto (Bld) [Volum e fraction]Ordered By: Dr. Pineda on 11-14-2022 Hematocrit (Bld) [Volume fraction] 48.5 % 40-54 [facility] Ketones Test strip Ql (U)Ord ered By: Dr. Pineda on 11-14-2022 Ketones Ql (U) Negative Negative [facility] Laboratory - Chemistry and C hemistry - challengeOrdered By: Dr. Pineda on 11-14-2022 ALP [Catalytic activity/Vol] 134 U/L 45-117 [facility] ALT [Catalytic activity/Vol] 32 U/L 16-61 [facility] CO2 [Moles/Vol] 33.0 mmol/L 21.0-32.0 [facility] Globulin (S) [Mass/Vol] 4.2 g/dL 2.2-4.2 [facility] Lipase [Catalytic activity/Vol] 101 U/L 73-393 [facility] Urea nitrogen/Creatinine [Mass ratio] 16.8 mg/mg 10-20 [facility] Laboratory - Hematology and Cell countsOrdered By: Dr. Pineda on 11-14-2022 Erythrocyte distribution width (RBC) [Entitic vol] 40.8 fL 35.1-43.9 [facility] Erythrocyte distribution width (RBC) [Ratio] 12.5 % 11.6-14.6 [facility] Immature granulocytes/100 WBC (Bld) 0.400 % 0.0-0.9 [facility] Comment on above: IG% - Immature Granu locytes (promyelocytes, myelocytes and metamyelocytes) > 1% indicates that a LEFT SHIFT is Present. MCH (RBC) [Entitic mass] 29.4 pg 27.0-32.0 [facility] Nucleated RBC/100 WBC (Bld) [Ratio] 0 % 0-5 [facility] MCHC Auto (RBC) [Mass/Vol]Or dered By: Dr. Pineda on 11-14-2022 MCHC (RBC) [Mass/Vol] 33.0 g/dL 32-36 [facility] Mucus LM Ql (Urine sed)Order ed By: Dr. Pineda on 11-14-2022 Mucus Ql (Urine sed) 0 SEEN /hpf [facility] Nitrite Test strip Ql (U)Ord ered By: Dr. Pineda on 11-14-2022 Nitrite Ql (U) Negative Negative [facility] No Panel InformationOrdered By: Dr. Pineda on 11-14-2022 Estimated Creatinine Clearance Calc 71.27 ml/min [facility] Estimated GFR (MDRD) Amer 94 mL/min >60 [facility] Comment on above: GFR Calc Estimated GFR (MDRD) Non-Af Amer 78 mL/min >60 [facility] Comment on above: Non- GFR Calc Platelets bldOrdered By: Dr. Pineda on 11-14-2022 Platelets (Bld) [#/Vol] 312 10*3/uL 150-450 [facility] Protein Test strip Ql (U)Ord ered By: Dr. Pineda on 11-14-2022 Protein Ql (U) Negative Negative [facility] Serum or plasma albumin elver urement (mass/volume)Ordered By: Dr. Pineda on 11-14-2022 Albumin [Mass/Vol] 4.5 g/dL 3.2-5.0 [facility] Serum or plasma calcium elver urement (mass/volume)Ordered By: Dr. Pineda on 11-14-2022 Calcium [Mass/Vol] 9.9 mg/dL 8.5-10.1 [facility] Serum or plasma creatinine m easurement (mass/volume)Ordered By: Dr. Pineda on 11-14-2022 Creatinine [Mass/Vol] 1.01 mg/dL 0.70-1.30 [facility] Comment on above: The validity of the calculated GFR & GFRAA in patients over 70 years has not been determined. Clinical correlation is essential. Serum or plasma urea nitroge n measurement (mass/volume)Ordered By: Dr. Pineda on 11-14-2022 Urea nitrogen [Mass/Vol] 17 mg/dL 7-18 [facility] Squamous epithelial cells de tection in urine sediment by light microscopyOrdered By: Dr. Pineda on 11-14-2022 Epithelial cells.squamous LM Ql (Urine sed) 0 SEEN /hpf 0-5 [facility] Thin prep Papanicolaou smear with manual screeningOrdered By: Dr. Pineda on 11-14-2022 Thin prep Papanicolaou smear with manual screening 19 U/L 15-37 [facility] Thin prep Papanicolaou smear with manual screening 5 5-15 [facility] Urine blood detectionOrdered By: Dr. Pineda on 11-14-2022 RBC Ql (U) Negative Negative [facility] RBC Ql (U) 0 SEEN /hpf 0-5 [facility] Urine clarityOrdered By: Dr. Pineda on 11-14-2022 Clarity (U) Clear Clear [facility] Urine color determinationOrd ered By: Dr. Pineda on 04-03-2023 Color (U) Yellow Yellow [facility] Urine glucose detectionOrder ed By: Dr. Pineda on 11-14-2022 Glucose Ql (U) Normal mg/dl Normal [facility] Urine leukocyte esterase det ection by dipstickOrdered By: Dr. Pineda on 11-14-2022 Leukocyte esterase Test strip Ql (U) Negative Negative [facility] Urine pHOrdered By: Dr. Endy vargas on 11-14-2022 pH (U) 7.0 [pH] 5.0 - 8.0 [facility] Urine sediment bacteria coun t by microscopy (number/high power field)Ordered By: Dr. Pineda on 11-14-2022 Bacteria LM.HPF (Urine sed) [#/Area] 0 /[HPF] None Seen [facility] Urine specific gravity measu rementOrdered By: Dr. Pineda on 11-14-2022 Specific gravity (U) [Rel density] 1.010 1.002-1.030 [facility] Urobilinogen Auto test strip Ql (U)Ordered By: Dr. Pineda on 11-14-2022 Urobilinogen Ql (U) Normal mg/dl Normal [facility] ANES POSTPROC EVALon 023 ANES POSTPROC EVAL HNO ID: [id number] Author: Evita Morillo MD Service: Anesthesiology Author Type: Anesthesiologist Type: Anesthesia Postprocedure Evaluation Filed: 11/11/2022 12:32 PM Note Text: POST ANESTHESIA EVALUATION NOTE : 1955 Procedure Summary Date: 11/11/22 Room / Location: [place] [address] / [place] Anesthesia Start: 945 Anesthesia Stop: 1121 [...] November 11, 2022 TIME: 12:32 PM CSN: [id number] [facility] ANES PRE-OPon 11-11-2022 ANES PRE-OP HNO ID: [id number] Author: Evita Morillo MD Service: Anesthesiology Author Type: Anesthesiologist Type: Anesthesia Preprocedure Evaluation Filed: 11/11/2022 8:08 AM Note Text: ANESTHESIOLOGY DAY OF SURGERY NOTE : 1955 Procedure Information Date/Time: 11/11/22 0904 Procedure: LAPAROSCOPIC CHOLECYSTECTOMY WITH GRAMS Location: [place] [address] / [place] Surgeons: Jose Juan Pena MD Estimated body mass index is 31.42 kg/m? as calculated from the following: Height as of this encounter: 177.8 cm (5' 10). Weight as of this encounter: 99.3 kg (219 lb). Most recent hematocrit and potassium results: Hematocrit Test sent to [facility]. 06/28/2018 Potassium Test sent to [facility]. 04/09/2019 Relevant Problems CARDIO (+) CAD (coronary [...] he was born with it CABG at [facility] . Beta Jey Monitoring Plan Monitoring plan: [...] by mouth once daily. - Blood-Glucose Meter (FREESTYLE LITE METER) monitoring [...] Jaret Bates RAE (more content not included)... [facility] BRIEF OP NOTon 11-11-2022 BRIEF OP NOT HNO ID: [id number] Author: Jose Juan Pena MD Service: General Surgery Author Type: Physician Type: Brief Op Note Filed: 11/11/2022 11:14 AM Note Text: BRIEF OPERATIVE NOTATION FOR SURGICAL PROCEDURE. Jaret Ch Paulo 1955 [id number] male LOG ID: [id number] Surgery/Procedure Date: 11/11/2022 Incision/Procedure Start Time: 10:12 AM Incision Close/Procedure End Time: 11:06 AM Surgeon(s)/Proceduralist(s ) and Warehouse Production Worker(s): Surgeon(s) and Role: * Jose Juan Pena MD - Primary Physician Warehouse Production Worker: Miriam Boyle PA-C REFERRING PHYSICIAN: Dr. Bear Outpatient DEPT: [facility] PROVIDER: Malachi POS: [id number] ANESTHESIA: General ASA CLASS: 3 - Severe DIAGNOSIS: symptomatic cholelithiasis, RUQ pain, PROCEDURE: LAPAROSCOPIC CHOLECYSTECTOMY WITH INTRAOPERATIVE CHOLEANGIOGRAM - 57543-220 IVF: 1000 EBL: 50 Specimens: gallbladder ADDITIONAL [...] 06/16/2017 Added automatically from request for surgery [id number] Impaired fasting glucose 07/15/2016 Myalgia and myositis, unspecified Other and unspecified hyperlipidemia Other forms of migraine Other malaise and fatigue Other specified disease of hair and hair follicles Rosacea Snoring Temporomandibular joint disorders, unspecified Tubular adenoma of colon 10/30/2014 Unspecified constipation 06/28/2010 COMORBIDITIES - None Post Op Occurrences - None Wound Classification - Clean Contaminated Operative note dictated in the dictation system. - [id number] Jose Juan Pena MD [facility] HISTORY PHYSICALon HISTORY PHYSICAL HNO ID: [id number] Author: Jose Juan Pena MD Service: General [...] 06/16/2017 Added automatically from request for surgery [id number] Impaired fasting glucose 07/15/2016 Myalgia and myositis, [...] REDUCIBLE 20 (more content not included)... Normal [facility] OPERATIVE NOon 11-11-2022 OPERATIVE NO HNO ID: [id number] Author: Jose Juan Pena MD Service: General Surgery Author Type: Physician Type: Operative Report Filed: 11/12/2022 8:28 AM Note Text: [facility] - Operative Report JARET BATES : 1955 AGE: 67. SEX: M PATIENT TYPE: A HOSP [facility]: [facility] LOCATION: [facility] ATTENDING PHYSICIAN: Jose Juan Pena M.D. CSN NUMBER: [id number] DATE OF SURGERY/PROCEDURE: 11/11/2022 INCISION/PROCEDURE START TIME: 10:12 a.m. INCISION CLOSE/PROCEDURE END TIME: 11:06 a.m. PREOPERATIVE DIAGNOSIS: Symptomatic cholelithiasis, right upper quadrant pain. POSTOPERATIVE DIAGNOSIS: Symptomatic cholelithiasis, right upper quadrant pain, normal cholangiogram. SURGEON: Jose Juan Pena M.D. POLICE COMMANDING OFFICER: Miriam Boyle PA-C. SURGERY/PROCEDURE: Laparoscopic cholecystectomy with intraoperative cholangiogram. ANESTHESIA: General endotracheal. LOGIN ID: [id number] ANESTHESIOLOGIST: Dr. Morillo. ASA: 3. INTRAVENOUS FLUIDS: [...] removed through the port site. 0 PDS [id number] sutures placed on the supraumbilical port site [...] stable condition. Miriam Boyle was my 1st surgical first assistant. She assisted in visualization, retraction, and subcuticular closure. There were no surgeons or qualified residents available. Jose Juan Pena M.D. RG:[id number] /[id number] [facility] SURGICAL PATHOLOGYon 023 CASE REPORT [facility] Comment on above: Order Comment: Speci men Type: TISSUE SPECIMEN Ordering Facility: [facility] Address: [address] [place] [address] Result Comment: Surg [facility] Pathology Report Case: [id number] Authorizing Provider: Jose Juan Pena MD Collected: 11/11/2022 10:24 AM Ordering Location: [facility] Surgery Received: 11/11/2022 12:11 PM Pathologist: Bull Booth MD Specimen: [id number] Performed By: #### S #### [facility] CLIA [id number] [address] [address] [place] CLINICAL HISTORY Normal [facility] Comment on above: Order Comment: Speci men Type: TISSUE SPECIMEN Ordering Facility: [facility] Address: [address] [place] [address] Result Comment: Pre- op diagnosis: Calculus of gallbladder without cholecystitis without obstruction [K80.20] RUQ pain [R10.11] Performed By: #### S #### [facility] CLIA [id number] [address] [place] [address] FINAL DIAGNOSIS [facility] Comment on above: Order Comment: Speci men Type: TISSUE SPECIMEN Ordering Facility: [facility] Address: [address] [place] [address] Result Comment: Gall bladder, cholecystectomy: -Chronic cholecystitis with cholelithiasis Performed By: #### S #### [facility] CLIA [id number] [address] [place] [address] FINAL PERFORMING LAB [facility] Comment on above: Order Comment: Speci sierra Type: TISSUE SPECIMEN Ordering Facility: [facility] Address: [address] [place] [address] Result Comment: Diag nostic interpretation performed at [facility], [address] [place] [address] CLIA# [id number] Dairy Scientist: Fam Martinez M.D. Performed By: #### S #### [facility] CLIA [id number] [address] [place] [address] GROSS DESCRIPTION A. GALLBLADDER Normal [facility] Comment on above: Order Comment: Speci men Type: TISSUE SPECIMEN Ordering Facility: [facility] Address: [address] [place] [address] Result Comment: Rece ived in formalin labeled [...] trabecular. The wall thickness measures 0.2 cm. Household Appliances Salesperson sections are submitted in one cassette. MELONY/MLG November 11, 2022 4:36 PM Gross examination performed at [facility], [address] [place] [address], [place] [address] Performed By: #### S #### [facility] CLIA [id number] [address] [place] [address] [id number] CNPNon 11-09-2022 CNPN Telephone (PANEWO) -- JARET BATES ([id number]) 1955 M NFR Date Time Provider Department 11/09/22 NITISH NORRIS During your visit today, we recorded the following information about you: Nitish Norris APRN.RATE AND COST ANALYST 11/09/2022 6:19 AM Signed Please request most recent labs, especially A1c from PCP's office. And cardiac records, last OV from [facility]. DOS 11/11/2022 Araceli Davis LPN 11/09/2022 8:23 AM Signed Called and left message with Katerina at [facility] to return call. Callback number given. TORI Harrison LPN 11/09/2022 8:28 AM Signed Called and left message at Dr. Mathews office requesting patients most recent labs especially A1c to be faxed. Callback number and fax number given. TORI Harrison LPN 11/09/2022 8:58 AM Signed Received a call from [facility] stating Dr. Mckeon office has moved and new phone number is [phone]. I called Dr. Linda craig office and spoke with Katrina. Requested labs especially A1c to be faxed, fax number given. TORI Harrison YorkTORI 11/09/2022 9:27 AM Signed Received labs from Dr. Bear's office. Copy made for Nitish Norris CNP and original sent to [facility] through [employer]. Araceli Davis JACK SETTERRita DavisTORI 11/09/2022 9:31 AM Signed Called and spoke with Katerina at [facility], she will fax last office visit and cardiac records. Araceli DavisTORI Araceli DavisTORI 11/09/2022 2:18 PM Signed Received last office visit and cardiac testing from [facility]. Copy made for Nitish Norris CNP and original sent to [facility]. Araceli Davis LPN Allergies As of Date: 11/09/2022 Noted Allergy Reaction ADHESIVE TAPE (ROSINS) 10/15/2014 9 - Itching CONTRAST DYE 07/28/2009 Comments: possible FD AND C BLUE NO.1 07/28/2009 SERTRALINE 01/14/2004 Comments: zoloft, hot, elevated BP Date Reviewed: 11/04/2022 Reviewed by: Nitish Norris APRN.DAMON - Fully Assessed Reason for Visit: Request Outside Medical Records [357] Prescriptions as of 11/09/2022 - omeprazole (PRILOSEC) [...] sympto*08/04/2017 Obesi (more content not included)... Normal [facility] HISTORY PHYSICALon HISTORY PHYSICAL HNO ID: [id number] Author: Nitish Norris APRN.RATE AND COST ANALYST Service: ? Author Type: Nurse Practitioner Type: [...] fevers. Neurological: No history of TIA's, stroke, MACHINED PARTS METAL SPRAYER tumor, impaired sensorium, hemiplegia, paraplegia or quadraplegia. No neurological symptoms or problems. Respiratory: Positive for: asthma and COPD. Negative for: pneumonia within 6 weeks, tobacco use, URI < 2 weeks and obstructive sleep apnea. Cardiovascular: Positive for: anticoagulation therapy (ASA), CAD, hyperlipidemia (on rx) and open heart surgery Negative for: arrhythmia, atrial fibrillation, chest pain, CHF, congenital heart defect, DVT/PE, hypertension, recent IL, murmur/valvular heart disease, PVD and valve surgery. GI: See HPI. Negative for: abdominal pain, dysphagia, GERD, hepatitis, irritable bowel syndrome, inflammatory bowel disease, liver disease, nausea, pancreatitis, vomiting and ETOH (more content not included)... Normal [facility] Laboratory - Hematology and Cell countson 10-27-2022 HbA1c (Bld) [Mass fraction] 6.2 % 4.2-6.3 [facility] CNOVon 10-20-2022 CNOV Office Visit (GENSWS ) -- JARET BATES ([id number]) 1955 E[place] NFEvelina Date Time Provider Department 10/20/22 8:30 AM JOSE JUAN PENA During your visit today, we recorded the following information about you: Temperature Pulse Respiration Blood pressure 97.9 degrees 80/minute 12/minute 122/78 Weight Height 100.2 kg 1.778 m Jose Juan Pena MD 10/28/2022 6:18 AM Addendum HISTORY AND PHYSICAL Jaret Bates 1955 REFERRING [...] 06/16/2017 Added automatically from request for surgery [id number] Impaired fasting glucose 07/15/2016 Myalgia and myositis, [...] NEUROPLASTY AN (more content not included)... Normal [facility] Marco Antonio 10-20-2022 DAMONN Telephone (GENSAHRAS) -- JARET BATES ([id number]) 1955 M NFR Date Time Provider Department 10/20/22 JOSE JUAN PENA During your visit today, we recorded the following information about you: Dayron Orozco LPN 10/20/2022 9:41 AM Signed Called and spoke to Linette [facility], CT scan dept. Pushed image per [...] Visit: Results [95] Cmt: CT scan from [facility] Prescriptions as of 10/20/2022 - omeprazole [...] Encounter Status:Closed by DAYRON OROZCO on 10/20/22 [facility] CNOVon 10-07-2022 CNOV Office Visit (GENSWS ) -- JARET BATES ([id number]) 1955 E[place] CRUZ Date Time Provider Department 10/07/22 3:30 PM EDILIA HUNTER During your visit today, we recorded the following information about you: Temperature Pulse Blood pressure 97.9 degrees 82/minute 112/88 Edilia Hunter PA-C 10/13/2022 2:07 PM Signed FOLLOW UP VISIT - ENDOSCOPY NAME: Jaret Ch Paulo CLINIC NO.: [id number] DATE OF SERVICE: 10/07/2022 : 1955 REFERRING [...] which included preparing to see the patient, [id number] patient care, completing clinical documentation, obtaining and/or [...] to your office visit today with the [facility] General Surgeons. INSTRUCTIONS FOLLOWING A [...] needing other (more content not included)... Normal [facility] SURGICAL PATHOLOGYon 023 Case Report Surgical Pathology R eport Case: [id number] Authorizing Provider: Jose Juan Pena MD Collected: 09/27/2022 09:48 AM Ordering Location: Ambulatory Surgery Received: 09/27/2022 02:22 PM Pathologist: Francisco Arteaga MD, PhD Specimens: A) - JEJUNUM BIOPSY B) - ANTRUM (STOMACH) BIOPSY, Antral for H/H C) - ESOPHAGUS BIOPSY, Distal esophagus bx D) - ESOPHAGUS MID BIOPSY [facility] FINAL DIAGNOSIS A. Jejunum, biopsy: -Small bowel mucosa with no diagnostic abnormality. B. Antrum, biopsy: -Antral mucosa with reactive gastropathy. -No morphologic evidence of H. pylori on routine stain. C. Esophagus, distal, biopsy: -Squamous epithelium with no diagnostic abnormality. D. Esophagus, MID, biopsy: -Squamous epithelium with no diagnostic abnormality. [facility] Gross Description A. JEJUNUM BIOPSY Received in [...] 2022 11:09 PM Gross examination performed at [facility], [address] Performing Lab Diagnostic interpret ation performed at [facility], [address] [address] CLIA# [id number] Dairy Scientist: Fam Martinez M.D. [facility] COLONOSCOPY SCREENINGon 09-14 [facility] EGD DIAGNOSTICon 09-27-2022 [facility] GLUCOSE, BLOOD (POC)on 09-27 Glucose [Mass/Vol] 131 mg/dL Abnormal 74 - 99 mg/dL [facility] Absolute lymphocyte countOrd ered By: Dr. Warner on 09-12-2022 Lymphocytes Auto (Unsp spec) [#/Vol] 1.78 10*3/uL 0.83-4.51 [facility] Basophil percentageOrdered B y: Dr. Warner on 09-12-2022 Lactate [Moles/Vol] 0.8 mmol/L 0.4-2.0 [facility] Basophil percentage 0 SEEN /hpf 0-5 [facility] Basophils/100 WBC (Bld) 0.7 % 0-1 [facility] Bilirubin [Mass/Vol] 1.30 mg/dL 0.20-1.00 [facility] Comment on above: For patients on eltr ombopag therapy, use of Dimension [place] TBIL is not recommended. Chloride [Moles/Vol] 108 mmol/L 98-107 [facility] Eosinophils/100 WBC (Bld) 2.7 % 0-5 [facility] Glucose [Mass/Vol] 110 mg/dL 74-106 [facility] Comment on above: Fasting Glucose resu lt from 100 to 125 mg/dL suggests IMPAIRED HOMEOSTASIS per A.D.A. criteria. Neutrophils (Bld) [#/Vol] 4.4 10*3/uL 2.0-7.7 [facility] Neutrophils/100 WBC (Bld) 62.5 % 47-70 [facility] Potassium [Moles/Vol] 4.2 mmol/L 3.5-5.1 [facility] Protein [Mass/Vol] 7.2 g/dL 6.4-8.2 [facility] Sodium [Moles/Vol] 140 mmol/L 136-145 [facility] WBC (Bld) [#/Vol] 7.1 10*3/uL 4.4-11.0 [facility] Bilirubin Test strip Ql (U)O rdered By: Dr. Warner on 09-12-2022 Bilirubin Ql (U) Negative Negative [facility] Blood erythrocytes count (nu mber/volume)Ordered By: Dr. Warner on 09-12-2022 RBC (Bld) [#/Vol] 4.82 10*6/uL 4.6-6.2 [facility] Blood hemoglobin measurement (mass/volume)Ordered By: Dr. Warner on 09-12-2022 Hemoglobin (Bld) [Mass/Vol] 14.1 g/dL 13.0-16.5 [facility] Blood lymphocytes/100 leukoc ytesOrdered By: Dr. Warner on 09-12-2022 Lymphocytes/100 WBC (Bld) 25.2 % 19-41 [facility] Blood monocytes/100 leukocyt esOrdered By: Dr. Warner on 09-12-2022 Monocytes/100 WBC (Bld) 8.6 % 0-10 [facility] Blood platelet mean volumeOr dered By: Dr. Warner on 09-12-2022 Platelet mean volume (Bld) [Entitic vol] 8.5 fL 6.2-12.0 [facility] Determination of erythrocyte mean corpuscular volume (MCV)Ordered By: Dr. Warner on 09-12-2022 MCV (RBC) [Entitic vol] 89.6 fL 80-94 [facility] Direct bilirubinOrdered By: Dr. Warner on 09-12-2022 Bilirubin.direct [Mass/Vol] 0.30 mg/dL 0.00-0.30 [facility] Hematocrit Auto (Bld) [Volum e fraction]Ordered By: Dr. Warner on 09-12-2022 Hematocrit (Bld) [Volume fraction] 43.2 % 40-54 [facility] Ketones Test strip Ql (U)Ord ered By: Dr. Warner on 09-12-2022 Ketones Ql (U) Negative Negative [facility] Laboratory - Chemistry and C hemistry - challengeOrdered By: Dr. Warner on 09-12-2022 ALP [Catalytic activity/Vol] 96 U/L 45-117 [facility] ALT [Catalytic activity/Vol] 29 U/L 16-61 [facility] CO2 [Moles/Vol] 27.0 mmol/L 21.0-32.0 [facility] Globulin (S) [Mass/Vol] 3.4 g/dL 2.2-4.2 [facility] Lipase [Catalytic activity/Vol] 123 U/L 73-393 [facility] Urea nitrogen/Creatinine [Mass ratio] 23.4 mg/mg 10-20 [facility] Laboratory - Hematology and Cell countsOrdered By: Dr. Warner on 09-12-2022 Erythrocyte distribution width (RBC) [Entitic vol] 41.9 fL 35.1-43.9 [facility] Erythrocyte distribution width (RBC) [Ratio] 12.7 % 11.6-14.6 [facility] Immature granulocytes/100 WBC (Bld) 0.300 % 0.0-0.9 [facility] Comment on above: IG% - Immature Granu locytes (promyelocytes, myelocytes and metamyelocytes) > 1% indicates that a LEFT SHIFT is Present. MCH (RBC) [Entitic mass] 29.3 pg 27.0-32.0 [facility] Nucleated RBC/100 WBC (Bld) [Ratio] 0 % 0-5 [facility] MCHC Auto (RBC) [Mass/Vol]Or dered By: Dr. Warner on 09-12-2022 MCHC (RBC) [Mass/Vol] 32.6 g/dL 32-36 [facility] Mucus LM Ql (Urine sed)Order ed By: Dr. Warner on 09-12-2022 Mucus Ql (Urine sed) 0 SEEN /hpf [facility] Nitrite Test strip Ql (U)Ord ered By: Dr. Warner on 09-12-2022 Nitrite Ql (U) Negative Negative [facility] No Panel InformationOrdered By: Dr. Warner on 09-12-2022 Estimated Creatinine Clearance Calc 84.69 ml/min [facility] Estimated GFR (MDRD) Amer 114 mL/min >60 [facility] Comment on above: GFR Calc Estimated GFR (MDRD) Non-Af Amer 95 mL/min >60 [facility] Comment on above: Non- GFR Calc Platelets bldOrdered By: Dr. Warner on 09-12-2022 Platelets (Bld) [#/Vol] 249 10*3/uL 150-450 [facility] Protein Test strip Ql (U)Ord ered By: Dr. Warner on 09-12-2022 Protein Ql (U) 15 mg/dl Negative [facility] Serum or plasma albumin elver urement (mass/volume)Ordered By: Dr. Warner on 09-12-2022 Albumin [Mass/Vol] 3.8 g/dL 3.2-5.0 [facility] Serum or plasma calcium elver urement (mass/volume)Ordered By: Dr. Warner on 09-12-2022 Calcium [Mass/Vol] 9.5 mg/dL 8.5-10.1 [facility] Serum or plasma creatinine m easurement (mass/volume)Ordered By: Dr. Warner on 09-12-2022 Creatinine [Mass/Vol] 0.85 mg/dL 0.70-1.30 [facility] Comment on above: The validity of the calculated GFR & GFRAA in patients over 70 years has not been determined. Clinical correlation is essential. Serum or plasma urea nitroge n measurement (mass/volume)Ordered By: Dr. Warner on 09-12-2022 Urea nitrogen [Mass/Vol] 20 mg/dL 7-18 [facility] Squamous epithelial cells de tection in urine sediment by light microscopyOrdered By: Dr. Warner on 09-12-2022 Epithelial cells.squamous LM Ql (Urine sed) 0 SEEN /hpf 0-5 [facility] Thin prep Papanicolaou smear with manual screeningOrdered By: Dr. Warner on 09-12-2022 Thin prep Papanicolaou smear with manual screening 21 U/L 15-37 [facility] Thin prep Papanicolaou smear with manual screening 5 5-15 [facility] Urine blood detectionOrdered By: Dr. Warner on 09-12-2022 RBC Ql (U) Negative Negative [facility] RBC Ql (U) 0 SEEN /hpf 0-5 [facility] Urine clarityOrdered By: Dr. Warner on 09-12-2022 Clarity (U) Clear Clear [facility] Urine color determinationOrd ered By: Dr. Warner on 09-12-2022 Color (U) Yellow Yellow [facility] Urine glucose detectionOrder ed By: Dr. Warner on 09-12-2022 Glucose Ql (U) Normal mg/dl Normal [facility] Urine leukocyte esterase det ection by dipstickOrdered By: Dr. Warner on 09-12-2022 Leukocyte esterase Test strip Ql (U) Negative Negative [facility] Urine pHOrdered By: Dr. Christina sotomayor on 09-12-2022 pH (U) 5.0 [pH] 5.0 - 8.0 [facility] Urine sediment bacteria coun t by microscopy (number/high power field)Ordered By: Dr. Warner on 09-12-2022 Bacteria LM.HPF (Urine sed) [#/Area] 0 /[HPF] None Seen [facility] Urine specific gravity measu rementOrdered By: Dr. Warner on 09-12-2022 Specific gravity (U) [Rel density] 1.020 1.002-1.030 [facility] Urobilinogen Auto test strip Ql (U)Ordered By: Dr. Warner on 09-12-2022 Urobilinogen Ql (U) Normal mg/dl Normal [facility] Glucose Glucometer (BldC) [M ass/Vol]Ordered By: Dr. Garcia on 06-20-2022 Glucose [Mass/Vol] 120 mg/dL 74-106 [facility] Comment on above: MANAGEMENT OF PATIEN T CARE PER NURSING PROTOCOL Absolute lymphocyte counton 04-21-2022 Lymphocytes Auto (Unsp spec) [#/Vol] 1.70 10*3/uL 0.83-4.51 [facility] Work Phone: Basophil percentageon 2021 Basophils/100 WBC (Bld) 0.6 % 0-1 [facility] Work Phone: Bilirubin [Mass/Vol] 0.80 mg/dL 0.20-1.00 [facility] Work Phone: Comment on above: For patients on eltr ombopag therapy, use of Dimension [place] TBIL is not recommended. Chloride [Moles/Vol] 106 mmol/L 98-107 [facility] Work Phone: Cholesterol [Mass/Vol] 184 mg/dL <[address] [facility] Work Phone: Comment on above: <200 mg/dL Desirable 200-240 mg/dL Borderline >240 mg/dL High Risk Eosinophils/100 WBC (Bld) 4.4 % 0-5 [facility] Work Phone: Glucose [Mass/Vol] 114 mg/dL 74-106 [facility] Work Phone: Comment on above: Fasting Glucose resu lt from 100 to 125 mg/dL suggests IMPAIRED HOMEOSTASIS per A.D.A. criteria. Neutrophils (Bld) [#/Vol] 4.1 10*3/uL 2.0-7.7 [facility] Work Phone: Neutrophils/100 WBC (Bld) 60.4 % 47-70 [facility] Work Phone: Potassium [Moles/Vol] 4.7 mmol/L 3.5-5.1 [facility] Work Phone: [phone] Protein [Mass/Vol] 7.2 g/dL 6.4-8.2 [facility] Work Phone: Sodium [Moles/Vol] 139 mmol/L 136-145 [facility] Work Phone: Triglyceride [Mass/Vol] 50 mg/dL <199 [facility] Work Phone: Comment on above: The drugs N-Acetylcy steine and Metamizole may falsely depress this assay.Serum Triglycerides Reference Interval Normal <150 mg/dL Borderline high 150 - 199 mg/dL High 200 - 499 mg/dL Very High > or = 500 mg/dL WBC (Bld) [#/Vol] 6.8 10*3/uL 4.4-11.0 [facility] Work Phone: Blood erythrocytes count (nu mber/volume)on 04-21-2022 RBC (Bld) [#/Vol] 4.59 10*6/uL 4.6-6.2 [facility] Work Phone: Blood hemoglobin measurement (mass/volume)on 04-21-2022 Hemoglobin (Bld) [Mass/Vol] 13.8 g/dL 13.0-16.5 [facility] Work Phone: [phone] Blood lymphocytes/100 leukoc yteson 04-21-2022 Lymphocytes/100 WBC (Bld) 25.1 % 19-41 [facility] Work Phone: Blood monocytes/100 leukocyt eson 04-21-2022 Monocytes/100 WBC (Bld) 9.4 % 0-10 [facility] Work Phone: Blood platelet mean volumeon 04-21-2022 Platelet mean volume (Bld) [Entitic vol] 8.5 fL 6.2-12.0 [facility] Work Phone: Determination of erythrocyte mean corpuscular volume (MCV)on 04-21-2022 MCV (RBC) [Entitic vol] 90.2 fL 80-94 [facility] Work Phone: Direct bilirubinon Bilirubin.direct [Mass/Vol] 0.17 mg/dL 0.00-0.30 [facility] Work Phone: Hematocrit Auto (Bld) [Volum e fraction]on 04-21-2022 Hematocrit (Bld) [Volume fraction] 41.4 % 40-54 [facility] Work Phone: Laboratory - Chemistry and C hemistry - challengeon 04-21-2022 ALP [Catalytic activity/Vol] 100 U/L 45-117 [facility] Work Phone: [phone] ALT [Catalytic activity/Vol] 31 U/L 16-61 [facility] Work Phone: [phone] CO2 [Moles/Vol] 26.0 mmol/L 21.0-32.0 [facility] Work Phone: [phone] Globulin (S) [Mass/Vol] 3.5 g/dL 2.2-4.2 [facility] Work Phone: [phone] Urea nitrogen/Creatinine [Mass ratio] 23.1 mg/mg 10-20 [facility] Work Phone: [phone] Laboratory - Hematology and Cell countson 04-21-2022 Erythrocyte distribution width (RBC) [Entitic vol] 43.8 fL 35.1-43.9 [facility] Work Phone: [phone] Erythrocyte distribution width (RBC) [Ratio] 13.3 % 11.6-14.6 [facility] Work Phone: [phone] Immature granulocytes/100 WBC (Bld) 0.100 % 0.0-0.9 [facility] Work Phone: [phone] Comment on above: IG% - Immature Granu locytes (promyelocytes, myelocytes and metamyelocytes) > 1% indicates that a LEFT SHIFT is Present. MCH (RBC) [Entitic mass] 30.1 pg 27.0-32.0 [facility] Work Phone: [phone] Nucleated RBC/100 WBC (Bld) [Ratio] 0 % 0-5 [facility] Work Phone: [phone] MCHC Auto (RBC) [Mass/Vol]on 04-21-2022 MCHC (RBC) [Mass/Vol] 33.3 g/dL 32-36 [facility] Work Phone: [phone] No Panel Informationon 04-21 Estimated GFR (MDRD) Amer 101 mL/min >60 [facility] Work Phone: Comment on above: GFR Calc Estimated GFR (MDRD) Non-Af Amer 83 mL/min >60 [facility] Work Phone: Comment on above: Non- GFR Calc Thyroid Stimulating Hormone (TSH) 2.99 uIU/mL 0.358-3.74 [facility] Work Phone: Vitamin D 25-Hydroxy 38.8 ng/mL [facility] Work Phone: Comment on above: Vitamin D 25(OH) Sta tus Range Deficiency <20 ng/mL (50nmol/L) Insufficiency 20 - 30 ng/mL (50 - 75 nmol/L) Sufficiency 30 - 100 ng/mL (75 - 250 nmol/L) Toxicity >100 ng/mL (>250 nmol/L) Platelets bldon 04-21-2022 Platelets (Bld) [#/Vol] 261 10*3/uL 150-450 [facility] Work Phone: Serum or plasma albumin elver urement (mass/volume)on 04-21-2022 Albumin [Mass/Vol] 3.7 g/dL 3.2-5.0 [facility] Work Phone: Serum or plasma albumin/glob ulin mass ratioon 04-21-2022 Albumin/Globulin [Mass ratio] 1.1 {ratio} 0.9-2.4 [facility] Work Phone: Serum or plasma calcium elver urement (mass/volume)on 04-21-2022 Calcium [Mass/Vol] 9.2 mg/dL 8.5-10.1 [facility] Work Phone: Serum or plasma cholesterol in HDL measurement (mass/volume)on 04-21-2022 Cholesterol in HDL [Mass/Vol] 59 mg/dL >40 [facility] Work Phone: Comment on above: The drugs N-Acetylcy steine and Metamizole may falsely depress this assay. Reference Range HDL <40 mg/dL Low HDL Cholesterol HDL >or= 60 mg/dL High HDL Cholesterol Serum or plasma cholesterol in VLDL measurement (mass/volume)on 04-21-2022 Cholesterol in VLDL [Mass/Vol] 10 mg/dL 5-40 [facility] Work Phone: Serum or plasma creatinine m easurement (mass/volume)on 04-21-2022 Creatinine [Mass/Vol] 0.95 mg/dL 0.70-1.30 [facility] Work Phone: Comment on above: The validity of the calculated GFR & GFRAA in patients over 70 years has not been determined. Clinical correlation is essential. Serum or plasma low density lipoprotein (LDL) cholesterol measurement (mass/volume)on 04-21-2022 Cholesterol in LDL [Mass/Vol] 115 mg/dL 0-130 [facility] Work Phone: Serum or plasma urea nitroge n measurement (mass/volume)on 04-21-2022 Urea nitrogen [Mass/Vol] 22 mg/dL 7-18 [facility] Work Phone: Thin prep Papanicolaou smear with manual screeningon 04-21-2022 Thin prep Papanicolaou smear with manual screening 21 U/L 15-37 [facility] Work Phone: Thin prep Papanicolaou smear with manual screening 7 5-15 [facility] Work Phone: Whole blood hemoglobin A1c/t otal hemoglobin ratio (mass fraction)on 04-21-2022 HbA1c (Bld) [Mass fraction] 6.7 % 3.8-5.6 [facility] Work Phone: Comment on above: Normal < 5.7 % Predi abetic 5.7 - 6.4 % Diabetic >or= 6.5 % Please note range changes. Basophil percentageon 2021 Basophil percentage 0 SEEN /hpf 0-5 [facility] Work Phone: Bilirubin Test strip Ql (U)o n 03-24-2022 Bilirubin Ql (U) Negative Negative [facility] Work Phone: Ketones Test strip Ql (U)on 03-24-2022 Ketones Ql (U) Negative Negative [facility] Work Phone: Mucus LM Ql (Urine sed)on Mucus Ql (Urine sed) 0 SEEN /hpf [facility] Work Phone: Nitrite Test strip Ql (U)on 03-24-2022 Nitrite Ql (U) Negative Negative [facility] Work Phone: Protein Test strip Ql (U)on 03-24-2022 Protein Ql (U) Negative Negative [facility] Work Phone: Squamous epithelial cells de tection in urine sediment by light microscopyon 03-24-2022 Epithelial cells.squamous LM Ql (Urine sed) 0-5 SEEN /hpf 0-5 [facility] Work Phone: Urine blood detectionon 03-14 RBC Ql (U) Negative Negative [facility] Work Phone: RBC Ql (U) 0 SEEN /hpf 0-5 [facility] Work Phone: Urine clarityon 03-24-2022 Clarity (U) Clear Clear [facility] Work Phone: Urine color determinationon 03-24-2022 Color (U) Yellow Yellow [facility] Work Phone: Urine glucose detectionon Glucose Ql (U) Normal mg/dl Normal [facility] Work Phone: Urine leukocyte esterase det ection by dipstickon 03-24-2022 Leukocyte esterase Test strip Ql (U) Negative Negative [facility] Work Phone: Urine pHon 03-24-2022 pH (U) 6.0 [pH] 5.0 - 8.0 [facility] Work Phone: Urine sediment bacteria coun t by microscopy (number/high power field)on 03-24-2022 Bacteria LM.HPF (Urine sed) [#/Area] 0 /[HPF] None Seen [facility] Work Phone: Urine specific gravity measu rementon 03-24-2022 Specific gravity (U) [Rel density] 1.015 1.002-1.030 [facility] Work Phone: Urobilinogen Auto test strip Ql (U)on 03-24-2022 Urobilinogen Ql (U) Normal mg/dl Normal [facility] Work Phone: No Panel Informationon 03-22 POC SARS CoV-2 Antigen Positive [facility] Work Phone: Glucose Glucometer (BldC) [M ass/Vol]on 03-01-2022 Glucose [Mass/Vol] 107 mg/dL 74-106 [facility] Work Phone: Comment on above: MANAGEMENT OF PATIEN T CARE PER NURSING PROTOCOL Basophil percentageon 2021 Bilirubin [Mass/Vol] 1.00 mg/dL 0.20-1.00 [facility] Work Phone: Comment on above: For patients on eltr ombopag therapy, use of Dimension [place] TBIL is not recommended. Cholesterol [Mass/Vol] 258 mg/dL <[address] [facility] Work Phone: Comment on above: <200 mg/dL Desirable 200-240 mg/dL Borderline >240 mg/dL High Risk Protein [Mass/Vol] 6.8 g/dL 6.4-8.2 [facility] Work Phone: Triglyceride [Mass/Vol] 113 mg/dL <199 [facility] Work Phone: Comment on above: The drugs N-Acetylcy steine and Metamizole may falsely depress this assay.Serum Triglycerides Reference Interval Normal <150 mg/dL Borderline high 150 - 199 mg/dL High 200 - 499 mg/dL Very High > or = 500 mg/dL Direct bilirubinon 2 Bilirubin.direct [Mass/Vol] 0.19 mg/dL 0.00-0.30 [facility] Work Phone: Laboratory - Chemistry and C hemistry - challengeon 11-15-2021 ALP [Catalytic activity/Vol] 92 U/L 45-117 [facility] Work Phone: ALT [Catalytic activity/Vol] 34 U/L 16-61 [facility] Work Phone: Globulin (S) [Mass/Vol] 3.0 g/dL 2.2-4.2 [facility] Work Phone: Serum or plasma albumin elver urement (mass/volume)on 11-15-2021 Albumin [Mass/Vol] 3.8 g/dL 3.2-5.0 [facility] Work Phone: Serum or plasma cholesterol in HDL measurement (mass/volume)on 11-15-2021 Cholesterol in HDL [Mass/Vol] 44 mg/dL >40 [facility] Work Phone: Comment on above: The drugs N-Acetylcy steine and Metamizole may falsely depress this assay. Reference Range HDL <40 mg/dL Low HDL Cholesterol HDL >or= 60 mg/dL High HDL Cholesterol Serum or plasma cholesterol in VLDL measurement (mass/volume)on 11-15-2021 Cholesterol in VLDL [Mass/Vol] 23 mg/dL 5-40 [facility] Work Phone: Serum or plasma low density lipoprotein (LDL) cholesterol measurement (mass/volume)on 11-15-2021 Cholesterol in LDL [Mass/Vol] 191 mg/dL 0-130 [facility] Work Phone: Thin prep Papanicolaou smear with manual screeningon 11-15-2021 Thin prep Papanicolaou smear with manual screening 23 U/L 15-37 [facility] Work Phone: Absolute lymphocyte counton 10-04-2021 Lymphocytes Auto (Unsp spec) [#/Vol] 2.41 10*3/uL 0.83-4.51 [facility] Work Phone: Basophil percentageon 2021 Basophils/100 WBC (Bld) 0.7 % 0-1 [facility] Work Phone: Bilirubin [Mass/Vol] 1.10 mg/dL 0.20-1.00 [facility] Work Phone: Comment on above: For patients on eltr ombopag therapy, use of Dimension [place] TBIL is not recommended. Chloride [Moles/Vol] 104 mmol/L 98-107 [facility] Work Phone: Eosinophils/100 WBC (Bld) 2.7 % 0-5 [facility] Work Phone: Glucose [Mass/Vol] 91 mg/dL 74-106 [facility] Work Phone: Neutrophils (Bld) [#/Vol] 3.8 10*3/uL 2.0-7.7 [facility] Work Phone: Neutrophils/100 WBC (Bld) 53.8 % 47-70 [facility] Work Phone: Potassium [Moles/Vol] 4.0 mmol/L 3.5-5.1 [facility] Work Phone: Protein [Mass/Vol] 7.5 g/dL 6.4-8.2 [facility] Work Phone: Sodium [Moles/Vol] 137 mmol/L 136-145 [facility] Work Phone: WBC (Bld) [#/Vol] 7.1 10*3/uL 4.4-11.0 [facility] Work Phone: Blood erythrocytes count (nu mber/volume)on 10-04-2021 RBC (Bld) [#/Vol] 4.81 10*6/uL 4.6-6.2 [facility] Work Phone: Blood hemoglobin measurement (mass/volume)on 10-04-2021 Hemoglobin (Bld) [Mass/Vol] 14.2 g/dL 13.0-16.5 [facility] Work Phone: Blood lymphocytes/100 leukoc yteson 10-04-2021 Lymphocytes/100 WBC (Bld) 34.0 % 19-41 [facility] Work Phone: Blood monocytes/100 leukocyt eson 10-04-2021 Monocytes/100 WBC (Bld) 8.7 % 0-10 [facility] Work Phone: Blood platelet mean volumeon 10-04-2021 Platelet mean volume (Bld) [Entitic vol] 8.9 fL 6.2-12.0 [facility] Work Phone: Determination of erythrocyte mean corpuscular volume (MCV)on 10-04-2021 MCV (RBC) [Entitic vol] 90.4 fL 80-94 [facility] Work Phone: Hematocrit Auto (Bld) [Volum e fraction]on 10-04-2021 Hematocrit (Bld) [Volume fraction] 43.5 % 40-54 [facility] Work Phone: Laboratory - Chemistry and C hemistry - challengeon 10-04-2021 ALP [Catalytic activity/Vol] 106 U/L 45-117 [facility] Work Phone: ALT [Catalytic activity/Vol] 33 U/L 16-61 [facility] Work Phone: [phone] CO2 [Moles/Vol] 27.0 mmol/L 21.0-32.0 [facility] Work Phone: [phone] Globulin (S) [Mass/Vol] 3.2 g/dL 2.2-4.2 [facility] Work Phone: Urea nitrogen/Creatinine [Mass ratio] 23.5 mg/mg 10-20 [facility] Work Phone: Laboratory - Hematology and Cell countson 10-04-2021 Erythrocyte distribution width (RBC) [Entitic vol] 44.0 fL 35.1-43.9 [facility] Work Phone: Erythrocyte distribution width (RBC) [Ratio] 13.2 % 11.6-14.6 [facility] Work Phone: [phone] Immature granulocytes/100 WBC (Bld) 0.100 % 0.0-0.9 [facility] Work Phone: [phone] Comment on above: IG% - Immature Granu locytes (promyelocytes, myelocytes and metamyelocytes) > 1% indicates that a LEFT SHIFT is Present. MCH (RBC) [Entitic mass] 29.5 pg 27.0-32.0 [facility] Work Phone: Nucleated RBC/100 WBC (Bld) [Ratio] 0 % 0-5 [facility] Work Phone: MCHC Auto (RBC) [Mass/Vol]on 10-04-2021 MCHC (RBC) [Mass/Vol] 32.6 g/dL 32-36 [facility] Work Phone: No Panel Informationon 10-04 Estimated GFR (MDRD) Amer 103 mL/min >60 [facility] Work Phone: Comment on above: GFR Calc Estimated GFR (MDRD) Non-Af Amer 85 mL/min >60 [facility] Work Phone: Comment on above: Non- GFR Calc Prostate Specific Antigen Total 1.13 ng/mL 0.0-4.0 [facility] Work Phone: Comment on above: This test was perfor med using the TPSA assay method for [employer] chemistry system. Values obtained with differentassay methods cannot be used interchangably.When changing PSA assays in the course of monitoring apatient, additional sequential testing should be carriedout to confirm baseline values. Platelets bldon 10-04-2021 Platelets (Bld) [#/Vol] 284 10*3/uL 150-450 [facility] Work Phone: Serum or plasma albumin elver urement (mass/volume)on 10-04-2021 Albumin [Mass/Vol] 4.3 g/dL 3.2-5.0 [facility] Work Phone: Serum or plasma albumin/glob ulin mass ratioon 10-04-2021 Albumin/Globulin [Mass ratio] 1.3 {ratio} 0.9-2.4 [facility] Work Phone: Serum or plasma calcium elver urement (mass/volume)on 10-04-2021 Calcium [Mass/Vol] 9.3 mg/dL 8.5-10.1 [facility] Work Phone: Serum or plasma creatinine m easurement (mass/volume)on 10-04-2021 Creatinine [Mass/Vol] 0.94 mg/dL 0.70-1.30 [facility] Work Phone: Comment on above: The validity of the calculated GFR & GFRAA in patients over 70 years has not been determined. Clinical correlation is essential. Serum or plasma urea nitroge n measurement (mass/volume)on 10-04-2021 Urea nitrogen [Mass/Vol] 22 mg/dL 7-18 [facility] Work Phone: Thin prep Papanicolaou smear with manual screeningon 10-04-2021 Thin prep Papanicolaou smear with manual screening 20 U/L 15-37 [facility] Work Phone: Thin prep Papanicolaou smear with manual screening 6 5-15 [facility] Work Phone: Laboratory - Microbiology an d Antimicrobial susceptibilityon 08-10-2021 SARS-CoV-2 (COVID-19) RNA CHARLES+probe Ql (Unsp spec) Not detected Not Detect [facility] Work Phone: Comment on above: Normal Reference [...] Informationon 08-10 Influenza Types A,B Direct FA ([facility]) [facility] Work Phone: Laboratory - Microbiology an d Antimicrobial susceptibilityon 07-29-2021 SARS-CoV-2 (COVID-19) RNA CHARLES+probe Ql (Unsp spec) Not detected Not Detect [facility] Work Phone: Comment on above: Normal Reference [...] Informationon 07-29 Influenza Types A,B Direct FA ([facility]) [facility] Work Phone: CNOVon 09-19-2017 CNOV Office Visit (AGCARDWST) JARET BATES ([id number]) 1955 [facility] Time Provider Department09/19/17 9:00 AM LOPEZ COHEN [...] - metBeta jey for ASHD with prior [place] or prior LVEFANDlt;40 (NQF 0070) - N/ABeta jey for HF with prior LVEFANDlt;40 (NQF 0083) - N/AACE-I or ARB for ASHD with DM or prior LVEFANDlt;40 (NQF 0066) - N/AStatin therapy for ASHD or FHL or DM - metBMI documented and plan if ANDgt;25 (NQ 0421) - lifestyle recommendation formTobacco use screening and referral (NQ 0028) - lifestyle recommendation formRecommendation for whole [...] with treatment plan.This note was generated using [employer]ylogy voice recognition system, and there may besome [...] 06/16/2017 Added automatically from request for surgery [id number] Impaired fasting glucose 07/15/2016- Myalgia and myositis, [...] Nochange is seen since 09/19/16.Electronically Signed:Lopez Cohen MDFebruary 2017 9:33 [facility]:Kelly Hooker MD 09/19/2017 9:33 AM SignedLIFESTYLE CHANGEA [...] programs in your area.Referring Provider: LOPEZ COHEN [[id number]]Allergies As of Date: 09/19/2017 Noted Allergy ReactionADHESIVE TAPE (ROSINS) 10/15/2014 9 - ItchingCONTRAST DYE 07/28/2009 Comments: possibleCORTISONE 06/16/2004 Comments: edema, erythema-?not sure of drug nameFD AND C BLUE NO.1 07/28/2009SERTRALINE 01/14/2004 Comments: zoloft, hot, elevated BPDate Reviewed: 09/19/2017Reviewed by: Edilia Lockhart - Fully AssessedReason for Visit: Follow Up [171]Primary Visit Diagnosis: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 EAT A WHOLE FOOD, PLANT BASED [...] LOPEZ COHEN MD on 09/19/17 [facility] PROGRESSon 09-19-2017 PROGRESS HNO ID: [id number] thor: Lopez Valladares: (none)Author Type: PhysicianType: Progress NotesFiled: 09/19/2017 4:48 PMNote Text:PERTINENT CARDIAC HISTORYAHSD - CABGx3 2012HTNHLADHERENCE TO GUIDELINESACE-I or ARB for HF with prior LVEF<40 (NQF 0081) - N/AASA or Plavix for ASHD (NQF 0067) - metBeta jey for ASHD with prior [place] or prior LVEF<40 (NQF 0070) - N/ABeta jey for HF with prior LVEF<40 (NQF 0083) - N/AACE-I or ARB for ASHD with DM or prior LVEF<40 (NQF 0066) - N/AStatin therapy for ASHD or FHL or DM - metBMI documented and plan if >25 (NQ 0421) - lifestyle recommendation formTobacco use screening and referral (NQ 0028) - lifestyle recommendationformRecommen dation for whole [...] with treatment plan.This note was generated using [employer] voice recognition system, and theremay be some [...] 09/04/2012- Calculus of gallbladder without cholecystitis without cpozwunhatw33/2/2016- Chronic airway obstruction, not elsewhere classified- Diaphragmatic hernia without mention of obstruction or gangrene Hiatal hernia- Displacement of cervical intervertebral disc without myelopathy12/10/2003- Dysthymic disorder Depression (non-psychotic)- Generalized osteoarthrosis, unspecified site- GERD (gastroesophageal reflux disease) 06/28/2010- Hearing loss of both ears Wears hearing aids - bilateral- Hemorrhoids, internal 06/16/2017 Added automatically from request for surgery [id number]- Impaired fasting glucose 07/15/2016- Myalgia and myositis, [...] since 09/19/16.Electronically Signed:Lopez Cohen MDFebruary 2017 9:33 [facility]:Jose Luis Lopez MD Normal [facility] Culture, urine Bacteria identified Cx Nom (U) Culture exhibits no growth. [facility] Work Phone: Vital Signs Date Time Vital Sign Value Performing Clinician Facility 05-22-2025 07:54-0400 Body height 177.[address] Marshall Bear MD Work Phone: [facility] 05-22-2025 07:54-0400 Body mass index (BMI) [Ratio] 28.7 kg/m2 Dr. Marshall Bear MD Work Phone: [facility] 05-22-2025 07:54-0400 Body weight 90.[address] Marshall Bear MD Work Phone: [facility] 05-22-2025 07:54-0400 Diastolic blood pressure 77 mm[Hg] Dr. Marshall Bear MD Work Phone: [facility] 05-22-2025 07:54-0400 Heart rate 61 /min Dr. Marshall Bear MD Work Phone: [facility] 05-22-2025 07:54-0400 Respiratory rate 18 /min Dr. Marshall Bear MD Work Phone: [facility] 05-22-2025 07:54-0400 SaO2% (BldA) [Mass fraction] 98 % Dr. Marshall Bear MD Work Phone: [facility] 05-22-2025 07:54-0400 Systolic blood pressure 138 mm[Hg] Dr. Marshall Bear MD Work Phone: [facility] 05-15-2025 11:08-0400 Body height 177.[address] Marshall Bear MD Work Phone: [facility] 05-15-2025 11:08-0400 Body mass index (BMI) [Ratio] 28.1 kg/m2 Dr. Marshall Bear MD Work Phone: [facility] 05-15-2025 11:08-0400 Body temperature 98.2 [degF] Dr. Marshall Bear MD Work Phone: [facility] 05-15-2025 11:08-0400 Body weight 88.[address] Marshall Bear MD Work Phone: [facility] 05-15-2025 11:08-0400 Diastolic blood pressure 88 mm[Hg] Dr. Marshall Bear MD Work Phone: [facility] 05-15-2025 11:08-0400 Heart rate 67 /min Dr. Marshall Bear MD Work Phone: [facility] 05-15-2025 11:08-0400 Respiratory rate 16 /min Dr. Marshall Bear MD Work Phone: [facility] 05-15-2025 11:08-0400 SaO2% (BldA) [Mass fraction] 96 % Dr. Marshall Bear MD Work Phone: [facility] 05-15-2025 11:08-0400 Systolic blood pressure 142 mm[Hg] Dr. Marshall Bear MD Work Phone: [facility] 02-25-2025 09:16-0400 Body height 177.[address] Marshall Bear MD Work Phone: [facility] 02-25-2025 09:16-0400 Body mass index (BMI) [Ratio] 27.3 kg/m2 Dr. Marshall Bear MD Work Phone: [facility] 02-25-2025 09:16-0400 Body weight 86.[address] Marshlal Bear MD Work Phone: [facility] 02-25-2025 09:16-0400 Diastolic blood pressure 82 mm[Hg] Dr. Marshall Bear MD Work Phone: [facility] 02-25-2025 09:16-0400 Heart rate 56 /min Dr. Marshall Bear MD Work Phone: [facility] 02-25-2025 09:16-0400 Respiratory rate 16 /min Dr. Marshall Bear MD Work Phone: [facility] 02-25-2025 09:16-0400 Systolic blood pressure 138 mm[Hg] Dr. Marshall Bear MD Work Phone: [facility] 01-27-2025 11:26-0400 Diastolic blood pressure 93 mm[Hg] Dr. Marshall Bear MD Work Phone: [facility] 01-27-2025 11:26-0400 Heart rate 74 /min Dr. Marshall Bear MD Work Phone: [facility] 01-27-2025 11:26-0400 Systolic blood pressure 143 mm[Hg] Dr. Marshall Bear MD Work Phone: [facility] 01-27-2025 10:47-0400 Body height 177.[address] Marshall Bear MD Work Phone: [facility] 01-27-2025 10:47-0400 Body mass index (BMI) [Ratio] 27.4 kg/m2 Dr. Marshall Bear MD Work Phone: [facility] 01-27-2025 10:47-0400 Body temperature 98.2 [degF] Dr. Marshall Bear MD Work Phone: [facility] 01-27-2025 10:47-0400 Body weight 86.[address] Marshall Bear MD Work Phone: [facility] 01-27-2025 10:47-0400 Diastolic blood pressure 78 mm[Hg] Dr. Marshall Bear MD Work Phone: [facility] 01-27-2025 10:47-0400 Heart rate 69 /min Dr. Marshall Bear MD Work Phone: [facility] 01-27-2025 10:47-0400 Respiratory rate 16 /min Dr. Marshall Bear MD Work Phone: [facility] 01-27-2025 10:47-0400 SaO2% (BldA) [Mass fraction] 96 % Dr. Marshall Bear MD Work Phone: [facility] 01-27-2025 10:47-0400 Systolic blood pressure 128 mm[Hg] Dr. Marshall Bear MD Work Phone: [facility] 10-04-2024 09:52-0500 Body mass index (BMI) [Ratio] 26.6 kg/m2 Dr. Marshall Bear MD Work Phone: [facility] 10-04-2024 09:52-0500 Body temperature 98.4 [degF] Dr. aMrshall Bear MD Work Phone: [facility] 10-04-2024 09:52-0500 Body weight 84.[address] Marshall Bear MD Work Phone: [facility] 10-04-2024 09:52-0500 Diastolic blood pressure 68 mm[Hg] Dr. Marshall Bear MD Work Phone: [facility] 10-04-2024 09:52-0500 Heart rate 77 /min Dr. Marshall Bear MD Work Phone: [facility] 10-04-2024 09:52-0500 Respiratory rate 15 /min Dr. Marshall Bear MD Work Phone: [facility] 10-04-2024 09:52-0500 SaO2% (BldA) [Mass fraction] 98 % Dr. Marshall Bear MD Work Phone: [facility] 10-04-2024 09:52-0500 Systolic blood pressure 114 mm[Hg] Dr. Marshall Bear MD Work Phone: [facility] 12-12-2023 12:46-0400 Body temperature 98 [degF] Dr. Marshall Bear Work Phone: [facility] 12-12-2023 12:46-0400 Diastolic blood pressure 106 mm[Hg] Dr. Marshall Bear Work Phone: [facility] 12-12-2023 12:46-0400 Heart rate 74 /min Dr. Marshall Bear Work Phone: [facility] 12-12-2023 12:46-0400 Respiratory rate 16 /min Dr. Marshall Bear Work Phone: [facility] 12-12-2023 12:46-0400 SaO2% (BldA) [Mass fraction] 97 % Dr. Marshall Bear Work Phone: [facility] 12-12-2023 12:46-0400 Systolic blood pressure 149 mm[Hg] Dr. Marshall Bear Work Phone: [facility] 12-10-2023 01:00-0400 Body height 177.[address] Marshall Bear Work Phone: [facility] 12-10-2023 01:00-0400 Body mass index (BMI) [Ratio] 24.7 kg/m2 Dr. Marshall Bear Work Phone: [facility] 12-10-2023 01:00-0400 Body weight 78.[address] Marshall Bear Work Phone: [facility] 11-08-2023 13:12-0400 Body height 177.[address] Marshall Bear Work Phone: [facility] 11-08-2023 13:12-0400 Body mass index (BMI) [Ratio] 26.7 kg/m2 Dr. Marshall Bear Work Phone: [facility] 11-08-2023 13:12-0400 Body temperature 98.2 [degF] Dr. Marshall Bear Work Phone: [facility] 11-08-2023 13:12-0400 Body weight 84.[address] Marshall Bear Work Phone: [facility] 11-08-2023 13:12-0400 Diastolic blood pressure 92 mm[Hg] Dr. Marshall Bear Work Phone: [facility] 11-08-2023 13:12-0400 Heart rate 89 /min Dr. Marshall Bear Work Phone: [facility] 11-08-2023 13:12-0400 Respiratory rate 18 /min Dr. Marshall Bear Work Phone: [facility] 11-08-2023 13:12-0400 SaO2% (BldA) [Mass fraction] 95 % Dr. Marshall Bear Work Phone: [facility] 11-08-2023 13:12-0400 Systolic blood pressure 145 mm[Hg] Dr. Marshall Bear Work Phone: [facility] 11-01-2023 14:21-0400 Body temperature 97.7 [degF] Dr. Marshall Bear Work Phone: [facility] 11-01-2023 14:21-0400 Diastolic blood pressure 86 mm[Hg] Dr. Marshall Bear Work Phone: [facility] 11-01-2023 14:21-0400 Heart rate 74 /min Dr. Marshall Bear Work Phone: [facility] 11-01-2023 14:21-0400 Respiratory rate 16 /min Dr. Marshall Bear Work Phone: [facility] 11-01-2023 14:21-0400 SaO2% (BldA) [Mass fraction] 99 % Dr. Marshall Bear Work Phone: [facility] 11-01-2023 14:21-0400 Systolic blood pressure 135 mm[Hg] Dr. Marshall Bera Work Phone: [facility] 11-01-2023 11:05-0400 Body height 177.[address] Marshall Bear Work Phone: [facility] 11-01-2023 11:05-0400 Body mass index (BMI) [Ratio] 26.9 kg/m2 Dr. Marshall Bear Work Phone: [facility] 11-01-2023 11:05-0400 Body weight 85.[address] Marshall Bear Work Phone: [facility] 10-26-2023 17:06-0400 Body mass index (BMI) [Ratio] 26.4 kg/m2 Dr. Marshall Bear Work Phone: [facility] 10-26-2023 14:45-0400 Body temperature 98.1 [degF] Dr. Marshall Bear Work Phone: [facility] 10-26-2023 14:45-0400 Diastolic blood pressure 67 mm[Hg] Dr. Marshall Bear Work Phone: [facility] 10-26-2023 14:45-0400 Heart rate 96 /min Dr. Marshall Bear Work Phone: [facility] 10-26-2023 14:45-0400 Respiratory rate 18 /min Dr. Marshall Bear Work Phone: [facility] 10-26-2023 14:45-0400 SaO2% (BldA) [Mass fraction] 97 % Dr. Marshall Bear Work Phone: [facility] 10-26-2023 14:45-0400 Systolic blood pressure 109 mm[Hg] Dr. Marshall Bear Work Phone: [facility] 10-26-2023 04:18-0400 Body weight 83.[address] Marshall Bear Work Phone: [facility] 10-22-2023 16:51-0400 Body height 177.[address] Marshall Bear Work Phone: [facility] 10-21-2023 19:50-0500 Body temperature 97.6 [degF] Dr. Marshall Bear Work Phone: [facility] 10-21-2023 19:50-0500 Diastolic blood pressure 75 mm[Hg] Dr. Marshall Bear Work Phone: [facility] 10-21-2023 19:50-0500 Heart rate 78 /min Dr. Marshall Bear Work Phone: [facility] 10-21-2023 19:50-0500 Respiratory rate 21 /min Dr. Marshall Bear Work Phone: [facility] 10-21-2023 19:50-0500 SaO2% (BldA) [Mass fraction] 95 % Dr. Marshall Bear Work Phone: [facility] 10-21-2023 19:50-0500 Systolic blood pressure 135 mm[Hg] Dr. Marshall Bear Work Phone: [facility] 10-21-2023 18:18-0500 Body height 177.[address] Marshall Bear Work Phone: [facility] 10-21-2023 18:18-0500 Body mass index (BMI) [Ratio] 27.1 kg/m2 Dr. Marshall Bear Work Phone: [facility] 10-21-2023 18:18-0500 Body weight 85.[address] Marshall Bear Work Phone: [facility] 10-11-2023 09:18-0500 Diastolic blood pressure 72 mm[Hg] Ben Marshall MD Work Phone: [facility] 10-11-2023 09:18-0500 Heart rate 82 /min Ben Marshall MD Work Phone: [facility] 10-11-2023 09:18-0500 Respiratory rate 16 /min Ben Marshall MD Work Phone: [facility] 10-11-2023 09:18-0500 SaO2% (BldA) [Mass fraction] 97 % Ben Marshall MD Work Phone: [facility] 10-11-2023 09:18-0500 Systolic blood pressure 108 mm[Hg] Ben Marshall MD Work Phone: [facility] 10-11-2023 08:08-0500 Body temperature 97.81 [degF] Ben Marshall MD Work Phone: [facility] 10-11-2023 08:08-0500 Body weight 96.6 kg Ben Marshall MD Work Phone: [facility] 10-01-2023 18:44-0500 Body temperature 97.7 [degF] Dr. Marshall Bear Work Phone: [facility] 10-01-2023 18:44-0500 Diastolic blood pressure 93 mm[Hg] Dr. Marshall Bear Work Phone: [facility] 10-01-2023 18:44-0500 Heart rate 110 /min Dr. Marshall Bear Work Phone: [facility] 10-01-2023 18:44-0500 Respiratory rate 18 /min Dr. Marshall Bear Work Phone: [facility] 10-01-2023 18:44-0500 SaO2% (BldA) [Mass fraction] 97 % Dr. Marshall Bear Work Phone: [facility] 10-01-2023 18:44-0500 Systolic blood pressure 130 mm[Hg] Dr. Marshall Bear Work Phone: [facility] 10-01-2023 15:42-0500 Body mass index (BMI) [Ratio] 27.3 kg/m2 Dr. Marshall Bear Work Phone: [facility] 10-01-2023 15:42-0500 Body weight 86.[address] Marshall Bear Work Phone: [facility] 10-01-2023 15:01-0500 Body height 177.[address] Marshall Bear Work Phone: [facility] 09-27-2023 08:08-0500 Body mass index (BMI) [Ratio] 27.7 kg/m2 Dr. Marshall Bear Work Phone: [facility] 09-27-2023 08:08-0500 Body temperature 97.8 [degF] Dr. Marshall Bear Work Phone: [facility] 09-27-2023 08:08-0500 Body weight 87.[address] Marshall Bear Work Phone: [facility] 09-27-2023 08:08-0500 Diastolic blood pressure 78 mm[Hg] Dr. Marshall Bear Work Phone: [facility] 09-27-2023 08:08-0500 Heart rate 90 /min Dr. Marshall Bear Work Phone: [facility] 09-27-2023 08:08-0500 Respiratory rate 18 /min Dr. Marshall Bear Work Phone: [facility] 09-27-2023 08:08-0500 SaO2% (BldA) [Mass fraction] 97 % Dr. Marshall Bear Work Phone: [facility] 09-27-2023 08:08-0500 Systolic blood pressure 120 mm[Hg] Dr. Marshall Bear Work Phone: [facility] 09-26-2023 07:59-0500 Body mass index (BMI) [Ratio] 27.7 kg/m2 Dr. Marshall Bear Work Phone: [facility] 09-26-2023 07:59-0500 Body temperature 97.8 [degF] Dr. Marshall Bear Work Phone: [facility] 09-26-2023 07:59-0500 Body weight 87.[address] Marshall Bear Work Phone: [facility] 09-26-2023 07:59-0500 Diastolic blood pressure 82 mm[Hg] Dr. Marshall Bear Work Phone: [facility] 09-26-2023 07:59-0500 Heart rate 102 /min Dr. Marshall Bear Work Phone: [facility] 09-26-2023 07:59-0500 Respiratory rate 17 /min Dr. Marshall Bear Work Phone: [facility] 09-26-2023 07:59-0500 SaO2% (BldA) [Mass fraction] 97 % Dr. Marshall Bear Work Phone: [facility] 09-26-2023 07:59-0500 Systolic blood pressure 122 mm[Hg] Dr. Marshall Bear Work Phone: [facility] 08-21-2023 13:06-0500 Body height 177.[address] Marshall Bear Work Phone: [facility] 08-21-2023 13:06-0500 Body mass index (BMI) [Ratio] 29.9 kg/m2 Dr. Marshall Bear Work Phone: [facility] 08-21-2023 13:06-0500 Body temperature 98.3 [degF] Dr. Marshall Bear Work Phone: [facility] 08-21-2023 13:06-0500 Body weight 94.[address] Marshall Bear Work Phone: [facility] 08-21-2023 13:06-0500 Diastolic blood pressure 84 mm[Hg] Dr. Marshall Bear Work Phone: [facility] 08-21-2023 13:06-0500 Heart rate 71 /min Dr. Marshall Bear Work Phone: [facility] 08-21-2023 13:06-0500 Respiratory rate 16 /min Dr. Marshall Bear Work Phone: [facility] 08-21-2023 13:06-0500 SaO2% (BldA) [Mass fraction] 94 % Dr. Marshall Bear Work Phone: [facility] 08-21-2023 13:06-0500 Systolic blood pressure 135 mm[Hg] Dr. Marshall Bear Work Phone: [facility] 08-14-2023 19:40-0500 Diastolic blood pressure 68 mm[Hg] Dr. Marshall Bear Work Phone: [facility] 08-14-2023 19:40-0500 Heart rate 65 /min Dr. Marshall Bear Work Phone: [facility] 08-14-2023 19:40-0500 Respiratory rate 17 /min Dr. Marshall Bear Work Phone: [facility] 08-14-2023 19:40-0500 SaO2% (BldA) [Mass fraction] 93 % Dr. Marshall Bear Work Phone: [facility] 08-14-2023 19:40-0500 Systolic blood pressure 125 mm[Hg] Dr. Marshall Bear Work Phone: [facility] 08-14-2023 17:40-0500 Body temperature 98.4 [degF] Dr. Marshall Bear Work Phone: [facility] 08-14-2023 15:31-0500 Body height 177.[address] Marshall Bear Work Phone: [facility] 08-14-2023 15:31-0500 Body mass index (BMI) [Ratio] 31.2 kg/m2 Dr. Marshall Bear Work Phone: [facility] 08-14-2023 15:31-0500 Body weight 98.[address] Marshall Bear Work Phone: [facility] 08-04-2023 17:57-0500 Body height 177.[address] Marshall Bear Work Phone: [facility] 08-04-2023 17:57-0500 Body mass index (BMI) [Ratio] 30.4 kg/m2 Dr. Marshall Bear Work Phone: [facility] 08-04-2023 17:57-0500 Body temperature 97 [degF] Dr. Marshall Bear Work Phone: [facility] 08-04-2023 17:57-0500 Body weight 96.[address] Marshall Bear Work Phone: [facility] 08-04-2023 17:57-0500 Diastolic blood pressure 90 mm[Hg] Dr. Marshall Bear Work Phone: [facility] 08-04-2023 17:57-0500 Heart rate 108 /min Dr. Marshall Bear Work Phone: [facility] 08-04-2023 17:57-0500 Respiratory rate 16 /min Dr. Marshall Bear Work Phone: [facility] 08-04-2023 17:57-0500 SaO2% (BldA) [Mass fraction] 98 % Dr. Marshall Bear Work Phone: [facility] 08-04-2023 17:57-0500 Systolic blood pressure 153 mm[Hg] Dr. Marshall Bear Work Phone: [facility] 07-20-2023 13:22-0500 Body temperature 98 [degF] Dr. Marshall Bear Work Phone: [facility] 07-20-2023 13:22-0500 Diastolic blood pressure 88 mm[Hg] Dr. Marshall Bear Work Phone: [facility] 07-20-2023 13:22-0500 Heart rate 79 /min Dr. Marshall Bear Work Phone: [facility] 07-20-2023 13:22-0500 Respiratory rate 18 /min Dr. Marshall Bear Work Phone: [facility] 07-20-2023 13:22-0500 SaO2% (BldA) [Mass fraction] 94 % Dr. Marshall Bear Work Phone: [facility] 07-20-2023 13:22-0500 Systolic blood pressure 134 mm[Hg] Dr. Marshall Bear Work Phone: [facility] 07-18-2023 12:34-0500 Body height 177.[address] Marshall Bear Work Phone: [facility] 07-18-2023 12:34-0500 Body mass index (BMI) [Ratio] 31.4 kg/m2 Dr. Marshall Bear Work Phone: [facility] 07-18-2023 12:34-0500 Body weight 99.[address] Marshall Bear Work Phone: [facility] 07-18-2023 12:22-0500 Inhaled oxygen flow rate 4 L/min Dr. Marsahll Bear Work Phone: [facility] 05-19-2023 13:35-0400 Body height 177.[address] Marshall Bear Work Phone: [facility] 05-19-2023 13:35-0400 Body mass index (BMI) [Ratio] 30.4 kg/m2 Dr. Marshall Bear Work Phone: [facility] 05-19-2023 13:35-0400 Body temperature 98.2 [degF] Dr. Marshall Bear Work Phone: [facility] 05-19-2023 13:35-0400 Body weight 96.[address] Marshall Bear Work Phone: [facility] 05-19-2023 13:35-0400 Diastolic blood pressure 94 mm[Hg] Dr. Marshall Bear Work Phone: [facility] 05-19-2023 13:35-0400 Heart rate 82 /min Dr. Marshall Bear Work Phone: [facility] 05-19-2023 13:35-0400 Respiratory rate 16 /min Dr. Marshall Bear Work Phone: [facility] 05-19-2023 13:35-0400 SaO2% (BldA) [Mass fraction] 95 % Dr. Marshall Bear Work Phone: [facility] 05-19-2023 13:35-0400 Systolic blood pressure 138 mm[Hg] Dr. Marshall Bear Work Phone: [facility] 05-15-2023 12:40-0400 Body temperature 97.5 [degF] Dr. Marshall Bear Work Phone: [facility] 05-15-2023 12:40-0400 Diastolic blood pressure 91 mm[Hg] Dr. Marshall Bear Work Phone: [facility] 05-15-2023 12:40-0400 Heart rate 65 /min Dr. Marshall Bear Work Phone: [facility] 05-15-2023 12:40-0400 Respiratory rate 18 /min Dr. Marshall Bear Work Phone: [facility] 05-15-2023 12:40-0400 SaO2% (BldA) [Mass fraction] 99 % Dr. Marshall Bear Work Phone: [facility] 05-15-2023 12:40-0400 Systolic blood pressure 157 mm[Hg] Dr. Marshall Bear Work Phone: [facility] 05-15-2023 10:42-0400 Body height 177.[address] Marshall Bear Work Phone: [facility] 05-15-2023 10:42-0400 Body mass index (BMI) [Ratio] 31.1 kg/m2 Dr. Marshall Bear Work Phone: [facility] 05-15-2023 10:42-0400 Body weight 98.[address] Marshall Bear Work Phone: [facility] 05-11-2023 22:03-0400 Diastolic blood pressure 76 mm[Hg] Dr. Marshall Bear Work Phone: [facility] 05-11-2023 22:03-0400 Heart rate 93 /min Dr. Marshall Bear Work Phone: [facility] 05-11-2023 22:03-0400 Respiratory rate 18 /min Dr. Marshall Bear Work Phone: [facility] 05-11-2023 22:03-0400 SaO2% (BldA) [Mass fraction] 95 % Dr. Marshall Bear Work Phone: [facility] 05-11-2023 22:03-0400 Systolic blood pressure 129 mm[Hg] Dr. Marshall Bear Work Phone: [facility] 05-11-2023 17:57-0400 Body mass index (BMI) [Ratio] 31.7 kg/m2 Dr. Marshall Bear Work Phone: [facility] 05-11-2023 17:57-0400 Body temperature 97.1 [degF] Dr. Marshall Bear Work Phone: [facility] 05-11-2023 17:57-0400 Body weight 100.[address] Marshall Bear Work Phone: [facility] 05-11-2023 14:28-0400 Body mass index (BMI) [Ratio] 31.4 kg/m2 Dr. Marshall Bear Work Phone: [facility] 05-11-2023 14:28-0400 Body temperature 98.1 [degF] Dr. Marshall Bear Work Phone: [facility] 05-11-2023 14:28-0400 Body weight 99.[address] Marshall Bear Work Phone: [facility] 05-11-2023 14:28-0400 Diastolic blood pressure 83 mm[Hg] Dr. Marshall Bear Work Phone: [facility] 05-11-2023 14:28-0400 Heart rate 77 /min Dr. Marshall Bear Work Phone: [facility] 05-11-2023 14:28-0400 Respiratory rate 18 /min Dr. Marshall Bear Work Phone: [facility] 05-11-2023 14:28-0400 SaO2% (BldA) [Mass fraction] 94 % Dr. Marshall Bear Work Phone: [facility] 05-11-2023 14:28-0400 Systolic blood pressure 132 mm[Hg] Dr. Marshall Bear Work Phone: [facility] 05-10-2023 04:24-0400 Diastolic blood pressure 91 mm[Hg] Dr. Marshall Bear Work Phone: [facility] 05-10-2023 04:24-0400 Heart rate 73 /min Dr. Marshall Bear Work Phone: [facility] 05-10-2023 04:24-0400 Respiratory rate 15 /min Dr. Marshall Bear Work Phone: [facility] 05-10-2023 04:24-0400 SaO2% (BldA) [Mass fraction] 96 % Dr. Marshall Bear Work Phone: [facility] 05-10-2023 04:24-0400 Systolic blood pressure 166 mm[Hg] Dr. Marshall Bear Work Phone: [facility] 05-10-2023 03:09-0400 Body mass index (BMI) [Ratio] 32 kg/m2 Dr. Marshall Bear Work Phone: [facility] 05-10-2023 03:09-0400 Body temperature 98 [degF] Dr. Marshall Bear Work Phone: [facility] 05-10-2023 03:09-0400 Body weight 101.[address] Marshall Bear Work Phone: [facility] 12-20-2022 06:28-0400 Body height 177.8 cm MD Marshall Bear [facility] 12-20-2022 06:28-0400 Body mass index (BMI) [Ratio] 30.7 kg/m2 MD Marshall Bear [facility] 12-20-2022 06:28-0400 Body temperature 98.2 [degF] MD Marshall HARKINS [facility] 12-20-2022 06:28-0400 Body weight 97.29 kg MD Marshall Bear [facility] 12-20-2022 06:28-0400 Diastolic blood pressure 74 mm[Hg] MD Marshall Bear [facility] 12-20-2022 06:28-0400 Heart rate 72 /min MD Marshall Bear [facility] 12-20-2022 06:28-0400 Respiratory rate 16 /min MD Marshall Bear [facility] 12-20-2022 06:28-0400 SaO2% (BldA) [Mass fraction] 97 % MD Marshall Bear [facility] 12-20-2022 06:28-0400 Systolic blood pressure 140 mm[Hg] MD Marshall Bear [facility] 12-16-2022 10:04-0400 Body mass index (BMI) [Ratio] 30.8 kg/m2 MD Marshall Bear [facility] 12-16-2022 10:04-0400 Body weight 97.52 kg MD Marshall Bear [facility] 12-16-2022 10:04-0400 Diastolic blood pressure 87 mm[Hg] MD Marshall Bear [facility] 12-16-2022 10:04-0400 Heart rate 72 /min MD Marshall Bear [facility] 12-16-2022 10:04-0400 Respiratory rate 16 /min MD Marshall Bear [facility] 12-16-2022 10:04-0400 Systolic blood pressure 137 mm[Hg] MD Marshall Bear [facility] [facility] 11-18-2022 09:25-0400 Body height 177.8 cm Edilia Titi PA-C Work Phone: [facility] 11-18-2022 09:25-0400 Body temperature 98.01 [degF] Edilia Titi PA-C Work Phone: [facility] 11-18-2022 09:25-0400 Body weight 96.62 kg Edilia Titi PA-C Work Phone: [facility] 11-18-2022 09:25-0400 Diastolic blood pressure 78 mm[Hg] Edilia Titi PA-C Work Phone: [facility] 11-18-2022 09:25-0400 Heart rate 89 /min Edilia Hunter PA-C Work Phone: [facility] 11-18-2022 09:25-0400 SaO2% (BldA) [Mass fraction] 95 % Edilia Hunter PA-C Work Phone: [facility] 11-18-2022 09:25-0400 Systolic blood pressure 140 mm[Hg] Edilia Hunter PA-C Work Phone: [facility] 11-14-2022 15:04-0400 Diastolic blood pressure 72 mm[Hg] MD Marshall Bear [facility] 11-14-2022 15:04-0400 Heart rate 78 /min MD Marshall Bear [facility] 11-14-2022 15:04-0400 Respiratory rate 16 /min MD Marshall Bear [facility] 11-14-2022 15:04-0400 SaO2% (BldA) [Mass fraction] 96 % MD Marshall Bear [facility] 11-14-2022 15:04-0400 Systolic blood pressure 136 mm[Hg] MD Marshall Bear [facility] 11-14-2022 11:20-0400 Body height 178 cm MD Marshall Bear [facility] 11-14-2022 11:20-0400 Body mass index (BMI) [Ratio] 25.5 kg/m2 MD Marshall Bear [facility] 11-14-2022 11:20-0400 Body temperature 98.1 [degF] MD Marshall Bear [facility] 11-14-2022 11:20-0400 Body weight 80.9 kg MD Marshall Bear [facility] 11-04-2022 11:02-0400 Body height 177.8 cm Pacc 1 Work Phone: [facility] 11-04-2022 11:02-0400 Body temperature 98.2 [degF] Pacc 1 Work Phone: [facility] 11-04-2022 11:02-0400 Body weight 99.34 kg Pacc 1 Work Phone: [facility] 11-04-2022 11:02-0400 Diastolic blood pressure 82 mm[Hg] Pacc 1 Work Phone: [facility] 11-04-2022 11:02-0400 Heart rate 69 /min Pacc 1 Work Phone: [facility] 11-04-2022 11:02-0400 Respiratory rate 14 /min Pacc 1 Work Phone: [facility] 11-04-2022 11:02-0400 SaO2% (BldA) [Mass fraction] 97 % Pacc 1 Work Phone: [facility] 11-04-2022 11:02-0400 Systolic blood pressure 132 mm[Hg] Pacc 1 Work Phone: [facility] 10-27-2022 09:05-0400 Body temperature 97.5 [degF] MD Marshall Bear [facility] 10-27-2022 09:05-0400 Body weight 101.6 kg MD Marshall Bear [facility] 10-27-2022 09:05-0400 Diastolic blood pressure 80 mm[Hg] MD Marshall Bear [facility] 10-27-2022 09:05-0400 Heart rate 63 /min MD Marshall Bear [facility] 10-27-2022 09:05-0400 Respiratory rate 16 /min MD Marshall Bear [facility] 10-27-2022 09:05-0400 SaO2% (BldA) [Mass fraction] 94 % MD Marshall Bear [facility] 10-27-2022 09:05-0400 Systolic blood pressure 134 mm[Hg] MD Marshall Bear [facility] 10-20-2022 08:49-0500 Body height 177.8 cm Jose Juan Pena MD Work Phone: [facility] 10-20-2022 08:49-0500 Body temperature 97.9 [degF] Jose Juan Pena MD Work Phone: [facility] 10-20-2022 08:49-0500 Body weight 100.25 kg Jose Juan Pena MD Work Phone: [facility] 10-20-2022 08:49-0500 Diastolic blood pressure 78 mm[Hg] Jose Juan Pena MD Work Phone: [facility] 10-20-2022 08:49-0500 Heart rate 80 /min Jose Juan Pena MD Work Phone: [facility] 10-20-2022 08:49-0500 Respiratory rate 12 /min Jose Juan Pena MD Work Phone: [facility] 10-20-2022 08:49-0500 SaO2% (BldA) [Mass fraction] 96 % Jose Juan Pena MD Work Phone: [facility] 10-20-2022 08:49-0500 Systolic blood pressure 122 mm[Hg] Jose Juan Pena MD Work Phone: [facility] 10-07-2022 15:25-0500 Body temperature 97.9 [degF] Edilia Titi PA-C Work Phone: [facility] 10-07-2022 15:25-0500 Diastolic blood pressure 88 mm[Hg] Edilia [place] PA-C Work Phone: [facility] 10-07-2022 15:25-0500 Heart rate 82 /min Edilia Titi PA-C Work Phone: [facility] 10-07-2022 15:25-0500 SaO2% (BldA) [Mass fraction] 95 % Edilia [place] PA-C Work Phone: [facility] 10-07-2022 15:25-0500 Systolic blood pressure 112 mm[Hg] Edilia Titi PA-C Work Phone: [facility] 09-27-2022 11:00-0500 Diastolic blood pressure 67 mm[Hg] Jose Juan Pena MD Work Phone: [facility] 09-27-2022 11:00-0500 Heart rate 67 /min Jose Juan Pena MD Work Phone: [facility] 09-27-2022 11:00-0500 Respiratory rate 16 /min Jose Juan Pena MD Work Phone: [facility] 09-27-2022 11:00-0500 SaO2% (BldA) [Mass fraction] 93 % Jose Juan Pena MD Work Phone: [facility] 09-27-2022 11:00-0500 Systolic blood pressure 149 mm[Hg] Jose Juan Pena MD Work Phone: [facility] 09-27-2022 07:58-0500 Body temperature 97.39 [degF] Jose Juan Pena MD Work Phone: [facility] 09-27-2022 07:58-0500 Body weight 100.1 kg Jose Juan Pena MD Work Phone: [facility] 09-12-2022 12:10-0500 Respiratory rate 16 /min [facility] 09-12-2022 10:08-0500 Body height 177.8 cm Marshall [facility] 09-12-2022 10:08-0500 Body mass index (BMI) [Ratio] 31.8 kg/m2 [facility] 09-12-2022 10:08-0500 Body temperature 97.2 [degF] Marshall [facility] 09-12-2022 10:08-0500 Body weight 100.69 kg Marshallstefany Bear [facility] 09-12-2022 10:08-0500 Diastolic blood pressure 88 mm[Hg] Marshall [facility] 09-12-2022 10:08-0500 Heart rate 71 /min Marshall [facility] 09-12-2022 10:08-0500 SaO2% (BldA) [Mass fraction] 100 % Marshall [facility] 09-12-2022 10:08-0500 Systolic blood pressure 128 mm[Hg] [facility] 09-12-2022 09:02-0500 Body temperature 98.1 [degF] Marshall [facility] 09-12-2022 09:02-0500 Body weight 100.47 kg Marshall [facility] 09-12-2022 09:02-0500 Diastolic blood pressure 80 mm[Hg] Marshall [facility] 09-12-2022 09:02-0500 Heart rate 73 /min Marshallstefany Bear [facility] 09-12-2022 09:02-0500 Respiratory rate 18 /min Marshall [facility] 09-12-2022 09:02-0500 SaO2% (BldA) [Mass fraction] 94 % Marshall [facility] 09-12-2022 09:02-0500 Systolic blood pressure 129 mm[Hg] Marshall [facility] 08-09-2022 13:11-0500 Body height 177.8 cm Edilia Titi PA-C Work Phone: [facility] 08-09-2022 13:11-0500 Body temperature 97.2 [degF] Edilia Titi PA-C Work Phone: [facility] 08-09-2022 13:11-0500 Body weight 100.06 kg Edilia [place] PA-C Work Phone: [facility] 08-09-2022 13:11-0500 Diastolic blood pressure 76 mm[Hg] Edilia Titi PA-C Work Phone: [facility] 08-09-2022 13:11-0500 Heart rate 82 /min Edilia Titi PA-C Work Phone: [facility] 08-09-2022 13:11-0500 SaO2% (BldA) [Mass fraction] 97 % Edilia [place] PA-C Work Phone: [facility] 08-09-2022 13:11-0500 Systolic blood pressure 108 mm[Hg] Edilia Titi PA-C Work Phone: [facility] 08-02-2022 13:35-0500 Body mass index (BMI) [Ratio] 31.1 kg/m2 [facility] 08-02-2022 13:35-0500 Body temperature 97.5 [degF] MD Gee [facility] 08-02-2022 13:35-0500 Body weight 98.42 kg MD Marshall Bear [facility] 08-02-2022 13:35-0500 Diastolic blood pressure 78 mm[Hg] Marshall [facility] 08-02-2022 13:35-0500 Heart rate 66 /min Marshallstefany Bear [facility] 08-02-2022 13:35-0500 SaO2% (BldA) [Mass fraction] 98 % Marshall [facility] 08-02-2022 13:35-0500 Systolic blood pressure 124 mm[Hg] Marshall [facility] 06-20-2022 10:30-0500 Body temperature 98.6 [degF] Marshall [facility] 06-20-2022 10:30-0500 Diastolic blood pressure 81 mm[Hg] Marshall [facility] 06-20-2022 10:30-0500 Heart rate 60 /min [facility] 06-20-2022 10:30-0500 Respiratory rate 16 /min Marshall [facility] 06-20-2022 10:30-0500 SaO2% (BldA) [Mass fraction] 93 % Marshall [facility] 06-20-2022 10:30-0500 Systolic blood pressure 123 mm[Hg] Marshall [facility] 06-20-2022 09:38-0500 Body height 177.8 cm MD Gee [facility] Work Phone: 06-20-2022 09:38-0500 Body mass index (BMI) [Ratio] 31.3 kg/m2 MD Gee [facility] 06-20-2022 09:38-0500 Body weight 99 kg Marshallstefany Bear [facility] 04-21-2022 08:29-0400 Body temperature 98.4 [degF] MD Marshall Bear [facility] Work Phone: 04-21-2022 08:29-0400 Body weight 99.79 kg Marshallstefany Bear [facility] Work Phone: 04-21-2022 08:29-0400 Diastolic blood pressure 86 mm[Hg] [facility] 04-21-2022 08:29-0400 Heart rate 72 /min [facility] Work Phone: 04-21-2022 08:29-0400 Respiratory rate 16 /min [facility] Work Phone: 04-21-2022 08:29-0400 SaO2% (BldA) [Mass fraction] 96 % Marshall [facility] Work Phone: 04-21-2022 08:29-0400 Systolic blood pressure 142 mm[Hg] Marshall [facility] Work Phone: 03-24-2022 09:33-0400 Body height 177.8 cm Marshallstefany Bear [facility] Work Phone: 03-24-2022 09:33-0400 Body mass index (BMI) [Ratio] 30.5 kg/m2 Marshall [facility] Work Phone: 03-24-2022 09:33-0400 Body temperature 98.7 [degF] Marshall [facility] Work Phone: 03-24-2022 09:33-0400 Body weight 96.61 kg Marshallstefany Bear [facility] Work Phone: 03-24-2022 09:33-0400 Diastolic blood pressure 78 mm[Hg] MD Gee [facility] Work Phone: 03-24-2022 09:33-0400 Heart rate 76 /min [facility] Work [facility]: 03-24-2022 09:33-0400 Respiratory rate 14 /min [facility] Work Phone: 03-24-2022 09:33-0400 SaO2% (BldA) [Mass fraction] 99 % Marshall [facility] Work Phone: 03-24-2022 09:33-0400 Systolic blood pressure 126 mm[Hg] MD Gee [facility] Work Phone: 03-22-2022 06:49-0400 Body temperature 97.8 [degF] Marshall [facility] Work Phone: 03-22-2022 06:49-0400 Diastolic blood pressure 70 mm[Hg] Marshall [facility] Work Phone: 03-22-2022 06:49-0400 Heart rate 81 /min [facility] 03-22-2022 06:49-0400 Respiratory rate 15 /min [facility] Work Phone: 03-22-2022 06:49-0400 SaO2% (BldA) [Mass fraction] 99 % MD Gee [facility] Work Phone: 03-22-2022 06:49-0400 Systolic blood pressure 118 mm[Hg] [facility] Work [facility]: 03-09-2022 14:57-0400 Body mass index (BMI) [Ratio] 30.5 kg/m2 MD Gee [facility] Work Phone: 03-09-2022 14:57-0400 Body weight 96.61 kg MD Marshall Bear [facility] Work Phone: 03-01-2022 13:16-0400 Body temperature 97.6 [degF] MD Marshall Bear [facility] Work Phone: 03-01-2022 13:16-0400 Diastolic blood pressure 84 mm[Hg] MD Marshall Bear [facility] Work Phone: 03-01-2022 13:16-0400 Heart rate 62 /min Marshallsteafny Bear [facility] Work Phone: 03-01-2022 13:16-0400 Respiratory rate 16 /min [facility] Work Phone: 03-01-2022 13:16-0400 SaO2% (BldA) [Mass fraction] 97 % MD Gee [facility] Work Phone: 03-01-2022 13:16-0400 Systolic blood pressure 128 mm[Hg] MD Marshall [facility] Work Phone: 03-01-2022 10:13-0400 Body height 177.8 cm MD [facility] Work Phone: 03-01-2022 10:13-0400 Body mass index (BMI) [Ratio] 30.7 kg/m2 [facility] Work [facility]: 03-01-2022 10:13-0400 Body weight 97 kg [facility]efany [facility] Work Phone: 10-04-2021 08:01-0500 Body height 177.[address] Weston Gutierrez Work Phone: [facility] Work Phone: 10-04-2021 08:01-0500 Body mass index (BMI) [Ratio] 30.8 kg/m2 Dr. Weston Gutierrez Work Phone: [facility] Work Phone: 10-04-2021 08:01-0500 Body temperature 96.8 [degF] Dr. Weston Gutierrez Work Phone: [facility] Work Phone: 10-04-2021 08:01-0500 Body weight 97.[address] Weston Gutierrez Work Phone: [facility] Work Phone: 10-04-2021 08:01-0500 Diastolic blood pressure 68 mm[Hg] Dr. Weston Gutierrez Work Phone: [facility] Work Phone: 10-04-2021 08:01-0500 Heart rate 78 /min Dr. Weston Gutierrez Work Phone: [facility] Work Phone: 10-04-2021 08:01-0500 Respiratory rate 16 /min Dr. Weston Gutierrez Work Phone: [facility] Work Phone: 10-04-2021 08:01-0500 SaO2% (BldA) [Mass fraction] 98 % Dr. Weston Gutierrez Work Phone: [facility] Work Phone: 10-04-2021 08:01-0500 Systolic blood pressure 120 mm[Hg] Dr. Weston Gutierrez Work Phone: [facility] Work Phone: 10-01-2021 09:24-0500 Body mass index (BMI) [Ratio] 30.7 kg/m2 Dr. Weston Gutierrez Work Phone: [facility] Work Phone: 10-01-2021 09:24-0500 Body weight 97.[address] Weston Gutierrez Work Phone: [facility] Work Phone: 10-01-2021 09:24-0500 Diastolic blood pressure 71 mm[Hg] Dr. Weston Gutierrez Work Phone: [facility] Work Phone: 10-01-2021 09:24-0500 Heart rate 70 /min Dr. Weston Gutierrez Work Phone: [facility] Work Phone: 10-01-2021 09:24-0500 Respiratory rate 18 /min Dr. Weston Gutierrez Work Phone: [facility] Work Phone: 10-01-2021 09:24-0500 Systolic blood pressure 121 mm[Hg] Dr. Weston Gutierrez Work Phone: [facility] Work Phone: Encounters Encounter Date Encounter Type Care Provider Facility Start: 05-22-2025 End: 05-22-[address] Marshall Bear MD Work Phone: -[facility] Start: 05-22-2025 End: 05-22-2025 Patient encounter procedure Rosa Maria Cuevas PA -[facility] Work Phone: Start: 05-22-2025 End: 05-22-2025 ambulatory Marshall Bear Facility:[facility] Start: 05-15-2025 End: 05-15-[address] Marshall Bear MD -[facility] Work Phone: Start: 05-15-2025 End: 05-15-[address] Marshall Bear MD Work Phone: -[facility] Start: 03-27-2025 End: 03-27-2025 Patient encounter procedure Imelda STRONG -[facility] Work Phone: Start: 03-27-2025 End: 03-27-[address] Marshall Bear MD Work Phone: -[facility] Start: 03-24-2025 ambulatory Marshall Bear Facility :[facility] Start: 03-24-2025 Non-patient / Non-visit Dr. Webb Of avi [facility] Start: 03-21-2025 ambulatory [facility] Facility :[facility] Start: 03-21-2025 Non-patient / Non-visit Dr. Webb Of avi [facility] Start: 03-21-2025 End: 03-21-[address] Marshall Bear MD Work Phone: -[facility] Start: 03-21-2025 End: 03-21-2025 Patient encounter procedure Rosa Maria STRONG -[facility] Work Phone: Start: 03-21-2025 End: 03-21-2025 ambulatory [facility] Facility:[facility] Start: 03-06-2025 End: 03-06-[address] Marshall Bear MD Work Phone: -Laboratory Start: 03-06-2025 End: 03-06-[address] Juan Carlos Gagnon MD -Laboratory Work Phone: Start: 03-05-2025 ambulatory [facility] Facility :[facility] Start: 03-05-2025 Registered Referred Rosa Maria STRONG -Cardiovascular Services Work Phone: Start: 03-05-2025 End: 03-05-[address] Tarik Wilkinson [facility] Work Phone: Start: 03-05-2025 End: 03-06-[address] Marshall Bear MD Work Phone: [facility] Start: 03-05-2025 Non-patient / Non-visit Dr. Webb Of avi [facility] Work Phone: Start: 03-05-2025 End: 03-05-2025 ambulatory [facility] Facility:[facility] Start: 02-25-2025 End: 02-25-2025 Patient encounter procedure Rosa Maria STRONG -[facility] Work Phone: Start: 02-25-2025 End: 02-25-[address] Marshall Bear MD Work Phone: -[facility] Start: 01-31-2025 End: 01-31-[address] Bjorn Bradshaw MD -[facility] Work Phone: Start: 01-31-2025 End: 01-31-[address] Marshall Bear MD Work Phone: [facility] Work Phone: Start: 01-28-2025 End: 01-28-[address] Marshall Bear MD Work Phone: [facility] Work Phone: Start: 01-28-2025 End: 01-28-[address] Marshall Bear MD -Laboratory [facility] Start: 01-27-2025 End: 01-27-[address] Marshall Bear MD -[facility] Work Phone: Start: 01-27-2025 End: 01-28-[address] Marshall Bear MD Work Phone: [facility] Work Phone: Start: 10-04-2024 End: 10-04-[address] Talat Church MD -[facility] Work Phone: Start: 10-04-2024 End: 10-04-2024 ambulatory Marshall Bear [facility] Start: 09-19-2024 End: 09-19-2024 ambulatory Marshall Bear [facility] Start: 09-19-2024 End: 09-19-2024 ambulatory Marshall Bear Facility:[facility] Start: 09-10-2024 End: 09-10-2024 ambulatory Marshallstefany Hernandezner [facility] Start: 08-09-2024 End: 08-09-2024 [facility] Start: 07-23-2024 End: 07-23-2024 ambulatory Marshall Bear Facility:[facility] Start: 07-18-2024 End: 07-19-2024 ambulatory Marshall Bear Facility:[facility] Start: 07-17-2024 Encounter for preprocedural laboratory examination Bjorn Bradshaw [facility] Start: 07-02-2024 End: 07-02-2024 ambulatory Marshall Bear Facility:[facility] Start: 06-20-2024 ambulatory Marshall Bear Facility :[facility] Start: 06-20-2024 End: 06-20-2024 ambulatory Bjorn Bradshaw Facility:[facility] Start: 12-12-2023 Dr. Marshall Gates hner Work Phone: [facility] Work Phone: Start: 12-11-2023 Dr. Marshall Gates hner Work Phone: [facility] Work Phone: Start: 12-10-2023 End: 12-12-2023 Evaluation and management of inpatient Dr. Marshall Bear Work Phone: [facility] Work Phone: Start: 12-10-2023 End: 12-12-2023 Dr. Marshall Bear Work Phone: [facility]-Medical Surgical 3 Work Phone: Start: 11-27-2023 End: 12-12-[address] Marshall Bear Work Phone: [facility] Work Phone: Start: 11-27-2023 End: 12-12-2023 Dr. Marshall Bear Work Phone: [facility]-Laboratory, Specimen Work Phone: Start: 11-20-2023 End: 12-12-[address] Marshall Bear Work Phone: [facility] Work Phone: Start: 11-20-2023 End: 12-12-2023 Dr. Marshall Bear Work Phone: [facility]-Laboratory, Specimen Work Phone: Start: 11-10-2023 End: 11-11-[address] Marshall Bear Work Phone: [facility] Work Phone: Start: 11-10-2023 End: 11-11-2023 Dr. Marshall Bear Work Phone: [facility]Home Health Lab Start: 11-09-2023 End: 11-11-[address] Marshall Bear Work Phone: [facility] Work Phone: Start: 11-09-2023 End: 11-11-2023 Dr. Marshall Bear Work Phone: [facility] Start: 11-08-2023 End: 11-08-2023 Dr. Marshall Bear Work Phone: [facility] Work Phone: Start: 11-07-2023 End: 11-07-[address] Marshall Bear Work Phone: [facility] Work Phone: Start: 11-07-2023 End: 11-07-2023 Dr. Marshall Bear Work Phone: [facility]-Medical Out Work Phone: Start: 11-06-2023 End: 11-12-[address] Marshall Bear Work Phone: [facility] Work Phone: Start: 11-06-2023 End: 11-12-2023 Dr. Marshall Bear Work Phone: [facility]-Laboratory, Specimen Work Phone: Start: 11-01-2023 Dr. Marshall Gates hner Work Phone: [facility] Start: 11-01-2023 End: 11-01-2023 Emergency department patient visit Dr. Marshall Bear Work Phone: [facility] Work Phone: Start: 11-01-2023 End: 11-01-2023 Dr. Marshall Bear Work Phone: [facility]-Emergency Department Work Phone: Start: 10-30-2023 End: 11-12-[address] Marshall Bear Work Phone: [facility] Work Phone: Start: 10-30-2023 End: 11-12-2023 Dr. Marshall Bear Work Phone: [facility]-Laboratory, Specimen Work Phone: Start: 10-26-2023 Dr. Marshall Gates hner Work Phone: [facility] Start: 10-25-2023 Dr. Marshall Gates hner Work Phone: [facility] Work Phone: Start: 10-25-2023 Dr. Marshall Gates hner Work Phone: [facility] Start: 10-24-2023 Dr. Marshall Gates hner Work Phone: [facility] Work Phone: Start: 10-23-2023 Dr. Marshall Gates hner Work Phone: [facility] Start: 10-23-2023 Dr. Marshall Gates hner Work Phone: [facility] Start: 10-23-2023 Dr. Marshall Gates hner Work Phone: [facility] Start: 10-22-2023 Dr. Marshall Gates hner Work Phone: [facility] Work Phone: Start: 10-21-2023 End: 10-26-2023 Evaluation and management of inpatient Dr. Marshall Bear Work Phone: [facility] Work Phone: Start: 10-21-2023 End: 10-26-2023 Dr. Marshall Bear Work Phone: [facility]-Progressive Care Unit Work Phone: Start: 10-16-2023 Dr. Marshall Gates hner Work Phone: [facility] Start: 10-11-2023 End: 10-11-[address] Marshall Bear Work Phone: [facility] Work Phone: Start: 10-11-2023 End: 10-11-2023 Dr. Marshall Bear Work Phone: [facility]-Laboratory, Specimen Work Phone: Start: 10-11-2023 End: 10-11-2023 Subsequent hospital visit by physician Ben Marshall MD Work Phone: Ambulatory Surgery Comment on above: Epigastric pain [R10 .13] Start: 10-06-2023 End: 10-06-[address] Marshall Bear Work Phone: [facility] Work Phone: Start: 10-06-2023 End: 10-06-2023 Dr. Marshall Bear Work Phone: [facility] Start: 10-01-2023 End: 10-01-2023 Emergency department patient visit Dr. Marshall Bear Work Phone: [facility] Work Phone: Start: 10-01-2023 End: 10-01-2023 Dr. Marshall Bear Work Phone: [facility]-Emergency Department Work Phone: Start: 09-28-2023 Orders Only Jose Juan richardson MD Work Phone: General Surgery Comment on above: Epigastric pain (Kesha dayron Dx) Start: 09-27-2023 End: 09-27-[address] Marshall Bear Work Phone: [facility] Work Phone: Start: 09-27-2023 End: 09-27-2023 Dr. Marshall Bear Work Phone: [facility] [place] Work Phone: Start: 09-26-2023 End: 09-26-[address] Marshall Bear Work Phone: [facility] Work Phone: Start: 09-26-2023 End: 09-26-2023 Dr. Marshall Bear Work Phone: [facility]-Laboratory, Specimen Work Phone: Start: 09-26-2023 End: 09-26-2023 Dr. Marshall Bear Work Phone: [facility] Work Phone: Start: 09-13-2023 End: 09-13-2023 Dr. Marshall Bear Work Phone: [facility] Work Phone: Start: 08-24-2023 End: 08-24-[address] Marshall Bear Work Phone: [facility] Work Phone: Start: 08-24-2023 End: 08-24-2023 Dr. Marshall Bear Work Phone: [facility] Work Phone: Start: 08-21-2023 End: 08-21-[address] Marshall Bear Work Phone: [facility] Work Phone: Start: 08-21-2023 End: 08-21-[address] Marshall Bear Work Phone: [facility] [place] Work Phone: Start: 08-21-2023 End: 08-21-2023 Dr. Marshall Bear Work Phone: [facility] [place] Work Phone: Start: 08-17-2023 End: 08-17-[address] Marshall Bear Work Phone: [facility] Work Phone: Start: 08-17-2023 End: 08-17-2023 Dr. Marshall Bear Work Phone: [facility] Work Phone: Start: 08-14-2023 End: 08-14-2023 Emergency department patient visit Dr. Marshall Bear Work Phone: [facility]Emergency Department Work Phone: Start: 08-14-2023 End: 08-14-2023 Dr. Marshall Bear Work Phone: [facility] Work Phone: Start: 08-04-2023 End: 08-04-2023 Emergency department patient visit Dr. Marshall Bear Work Phone: [facility] Work Phone: Start: 08-04-2023 End: 08-04-2023 Dr. Marshall Bear Work Phone: [facility] Work Phone: Start: 07-31-2023 End: 07-31-[address] Marshall Bear Work Phone: [facility] Work Phone: Start: 07-31-2023 End: 07-31-2023 Dr. Marshall Bear Work Phone: [facility] Work Phone: Start: 07-28-2023 End: 07-28-[address] Marshall Bear Work Phone: [facility] Work Phone: Start: 07-28-2023 End: 07-28-2023 Dr. Marshall Bear Work Phone: [facility] Work Phone: Start: 07-20-2023 Non-patient / Non-visit Dr. Gracy Bear Work Phone: [facility] Start: 07-20-2023 Dr. Marshall Gates hner Work Phone: [facility] Start: 07-19-2023 Non-patient / Non-visit Dr. Gracy Bear Work Phone: [facility] Work Phone: Start: 07-19-2023 Dr. Marshall Gates hner Work Phone: [facility] Work Phone: Start: 07-19-2023 Non-patient / Non-visit Dr. Gracy Bear Work Phone: [facility] Start: 07-19-2023 Dr. Marshall Gates hner Work Phone: [facility] Start: 07-18-2023 Non-patient / Non-visit Dr. Gracy Bear Work Phone: [facility] Work Phone: Start: 07-18-2023 Dr. Marshall Gates hner Work Phone: [facility] Work Phone: Start: 07-18-2023 Non-patient / Non-visit Dr. Gracy Bear Work Phone: [facility] Start: 07-18-2023 End: 07-20-2023 Evaluation and management of inpatient Dr. Marshall Bear Work Phone: [facility] 3 Work Phone: Start: 07-18-2023 End: 07-20-2023 Dr. Marshall Bear Work Phone: [facility] 3 Work Phone: Start: 07-17-2023 Non-patient / Non-visit Dr. Gracy Bear Work Phone: [facility] Start: 07-17-2023 Dr. Marshall Gates hner Work Phone: [facility] Start: 07-10-2023 End: 07-10-[address] Marshall Bear Work Phone: [facility] Work Phone: Start: 07-10-2023 End: 07-10-2023 Dr. Marshall Bear Work Phone: [facility] Work Phone: Start: 06-01-2023 End: 06-01-[address] Marshall Bear Work Phone: [facility] Work Phone: Start: 05-27-2023 End: 05-27-[address] Marshall Bear Work Phone: [facility] Work Phone: Start: 05-27-2023 End: 05-27-[address] Marshall Bear Work Phone: [facility] Work Phone: Start: 05-19-2023 End: 05-19-[address] Marshall Bear Work Phone: [facility]-Laboratory, Specimen Work Phone: Start: 05-19-2023 End: 05-19-[address] Marshall Bear Work Phone: [facility] Work Phone: Start: 05-15-2023 End: 05-15-2023 Admission to same day surgery center Dr. Marshall Bear Work Phone: [facility] Start: 05-15-2023 End: 05-15-[address] Marshall Bear Work Phone: [facility] Work Phone: Start: 05-12-2023 End: 05-12-[address] Marshall Bear Work Phone: [facility] Work Phone: Start: 05-11-2023 End: 05-11-2023 Emergency department patient visit Dr. Marshall Bear Work Phone: [facility]-Emergency Department Work Phone: Start: 05-11-2023 End: 05-11-[address] Marshall Bear Work Phone: [facility] Work Phone: Start: 05-10-2023 End: 05-10-2023 Emergency department patient visit Dr. Marshall Bear Work Phone: [facility]Emergency Department Work Phone: Start: 05-06-2023 End: 05-06-[address] Marshall Bear Work Phone: [facility] Work Phone: Start: 04-20-2023 End: 04-20-[address] Marshall Bear Work Phone: [facility] Work Phone: Start: 04-18-2023 Refill Jose Juan richardson MD Work Phone: General Surgery Comment on above: Refill Request Start: 04-14-2023 End: 04-14-[address] Marshall Bear Work Phone: [facility] Work Phone: Start: 04-14-2023 End: 04-14-[address] Marshall Bear Work Phone: [facility]-Physical Therapy Work Phone: Start: 03-31-2023 End: 03-31-[address] Marshall Bear Work Phone: [facility] Work Phone: Start: 03-21-2023 End: 03-21-2023 ambulatory MD Marshall HARKINS [facility] Work Phone: Start: 03-21-2023 End: 03-21-2023 Patient encounter procedure MD Marshall HARKINS [facility] Work Phone: Start: 02-09-2023 End: 02-09-2023 Patient encounter procedure MD Marshall HARKINS [facility] Work Phone: Start: 01-18-2023 Non-patient / Non-visit MD Kristen HARKINS [facility] Start: 01-18-2023 End: 01-18-2023 Patient encounter procedure MD Marshall HARKINS [facility]Cardiov[facility]cul[facility] Services Work Phone: Start: 12-20-2022 End: 12-20-2022 Patient encounter procedure MD Marshall HARKINS [facility] Work Phone: Start: 12-16-2022 End: 12-16-2022 Patient encounter procedure MD Marshall HARKINS [facility] Work Phone: Start: 11-18-2022 End: 11-19-2022 ambulatory MARSHALL BEAR Facility:[facility] Start: 11-18-2022 End: 11-18-2022 Patient encounter procedure Edilia Hunter PA-C Work Phone: General Surgery Comment on above: Calculus of gallblad wilmar with chronic cholecystitis without obstruction (Primary Dx); Back spasm Start: 11-14-2022 Telephone encounter Jose Juan Pena MD Work Phone: General Surgery Comment on above: Post op complication s Start: 11-14-2022 End: 11-14-2022 Emergency department patient visit MD Marshall Bear [facility]Emergency Department Start: 11-11-2022 End: 11-11-2022 ambulatory JOSE JUAN PENA Facility:[facility] Start: 11-09-2022 Telephone encounter Nitish Norris APRN.CNP Work Phone: Pre Anesthesia Comment on above: Request Outside [facility] Start: 11-04-2022 End: 11-05-2022 ambulatory MARSHALL BEAR Facility:[facility] Start: 11-04-2022 Encounter for other preprocedural examination MARSHALL BEAR [facility] Start: 11-04-2022 End: 11-04-2022 Admission to [facility] 1 Work Phone: [facility] Start: 11-04-2022 End: 11-04-20[facility] Phone: [facility] Comment on above: Pre-operative examin ation (Primary Dx); Other hyperlipidemia; Coronary artery disease involving [place] coronary artery of [place] heart without angina pectoris; BPH with obstruction/lower urinary tract symptoms; Controlled type 2 diabetes mellitus without complication, without long-term current use of insulin (HCC); COPD with chronic bronchitis (HCC); Gastroesophageal reflux disease with esophagitis, unspecified whether hemorrhage; Bilateral hearing loss, unspecified hearing loss type; Obesity, Class I, BMI 30-34.9 Start: 11-04-2022 End: 11-04-2022 Preprocedural examination done [facility] 1 Work Phone: Pre Anesthesia Start: 11-04-2022 End: 11-04-2022 Patient encounter procedure MD Marshall HARKINS [facility] Start: 10-27-2022 End: 10-27-2022 Patient encounter procedure MD Marshall HARKINS [facility] [place] Start: 10-20-2022 Telephone encounter Jose Juan Pena MD Work Phone: General Surgery Comment on above: Results (CT scan fro [facility] ) Start: 10-20-2022 End: 10-21-2022 ambulatory JOSE JUAN PENA Facility:[facility] Start: 10-20-2022 End: 10-20-2022 Patient encounter procedure Jose Juan Pena MD Work Phone: General Surgery Comment on above: Calculus of gallblad wilmar without cholecystitis without obstruction (Primary Dx); RUQ pain Start: 10-07-2022 End: 10-08-2022 ambulatory Edilia Hunter Facility:[facility] Start: 10-07-2022 End: 10-07-2022 Patient encounter procedure Edilia Hunter PA-C Work Phone: General Surgery Comment on above: Diverticulosis (Prim jeaneth Dx); History of colonic polyps; Gastritis and duodenitis Start: 09-27-2022 End: 02-14-2023 Subsequent hospital visit by physician Jose Juan Pena MD Work Phone: Ambulatory Surgery Comment on above: History of colonic p olyps [Z86.010] Start: 09-16-2022 Telephone encounter Jose Juan Pena MD Work Phone: General Surgery Comment on above: Add EGD Start: 09-12-2022 End: 09-12-2022 Emergency department patient visit MD Marshall Glasschner [facility]Emergency Department Start: 09-12-2022 End: 09-12-2022 Patient encounter procedure MD Marshall Bear [facility] [place] Start: 08-09-2022 Telephone encounter Edilia royal PA-C Work Phone: General Surgery Comment on above: 09/27/2022 colon asc; Patient Update Start: 08-09-2022 End: 08-09-2022 Patient encounter procedure Edilia Hunter PA-C Work Phone: General Surgery Comment on above: Encounter for screen ing for malignant neoplasm of colon (Primary Dx); Personal history of colonic polyps Start: 08-02-2022 End: 08-02-2022 [facility] Start: 07-20-2022 End: 07-20-2022 Patient encounter [facility] Start: 07-11-2022 End: 07-11-2022 [facility] encounter [facility] Start: 07-04-2022 End: 07-04-2022 Patient encounter procedure MD Marshall Glasschner [facility] Start: 06-27-2022 End: 06-27-2022 Patient encounter [facility] Start: 06-20-2022 End: 06-20-2022 [facility] Start: 06-20-2022 End: 06-20-2022 [facility] Start: 04-21-2022 End: 04-21-2022 ambulatory MD Gee [facility] Work Phone: Start: 04-21-2022 End: 04-21-2022 Patient encounter procedure MD Marshall Bear [facility]Labor[facility] Start: 04-21-2022 End: 04-21-2022 Patient encounter procedure MD Marshall Bear [facility] [place] Start: 04-11-2022 End: 04-11-2022 Patient encounter procedure MD Marshall Bear [facility] Start: 03-24-2022 End: 03-24-2022 Patient encounter procedure MD Marshall Bear [facility] Radiology Start: 03-24-2022 End: 03-24-2022 [facility] Start: 03-22-2022 End: 03-22-2022 Patient encounter procedure MD Marshall Bear [facility] Start: 03-14-2022 End: 03-14-2022 Patient encounter procedure MD Marshall Bear [facility] Start: 03-09-2022 End: 03-09-2022 Patient encounter procedure MD Marshall Bear [facility] Start: 03-01-2022 Non-patient / Non-visit MD Marshall george [facility] Start: 03-01-2022 End: 03-01-2022 Admission to [facility] Start: 02-16-2022 End: 02-16-2022 Patient encounter procedure MD Marshall Glasschner [facility] Start: 02-11-2022 End: 02-11-2022 Patient encounter procedure MD Marshall Bear [facility] Start: 02-04-2022 End: 02-04-2022 Patient encounter [facility] Start: 11-15-2021 End: 11-15-[address] Weston Gutierrez Work Phone: [facility] Start: 10-04-2021 End: 10-04-[address] Weston Gutierrez Work Phone: [facility], [facility] Start: 10-04-2021 End: 10-04-[address] Weston Gutierrez Work Phone: [facility] Medicine Start: 10-01-2021 End: 10-01-[address] Weston Gutierrez Work Phone: [facility] Start: 08-10-[address] West[facility] Start: 07-29-[address] West[facility] Gutierrez [facility] Start: 09-19-2017 End: 09-19-2017 [facility] Facility:[facility] Procedures Date Procedure Procedure Detail Performing Clinician Start: 03-21-2025 Cardiovascular stress test using pharmacologic stress agent Dr. Marshall Bear MD Work Phone: Start: 03-06-2025 Methadone measurement, urine Dr. Marshall rowe MD Work Phone: Start: 03-06-[address] Marshall Bear MD Work Phone: Comment on above: Test Ordered: [id number] U7Okkroprovexb Screen, Urine Note: ng/mL UI See Final Results Reference Range: Lsuxis=441Ccfuikgdkmo test includes Amphetamine and Methamphetamine.Amphetamines Negative UI Reference Range: Iwkqmd=717Kivlhuugszq test includes Amphetamine and Methamphetamine.Barbiturates Negative ng/mL UI Reference Range: Vxsbng=342Gtmmwyswntaikgv Negative ng/mL UI Reference Range: Vobsuq=089Ayayezi (Metab.), Urine Negative ng/mL UI Reference Range: Falsrt=885Xolpztt Note: ng/mL UI See Final Results Reference Range: Woglha=138Wfrfmr test includes Codeine, Morphine, Hydromorphone, Hydrocodone.Opiates Negative UI Reference Range: Puhpsp=778Kpvrem test includes Codeine, Morphine, Hydromorphone, Hydrocodone.6-Acetylmorphine, Urine Negative ng/mL UI Reference Range: Cutoff=10Oxycodone/Oxymorphone, Urine Note: ng/mL UI See Final Results Reference Range: Nlbhih=709Wxhk includes Oxycodone and OxymorphoneOxycodone/Oxymorph Positive [A ] UI Reference Range: Abyhgi=994Xjru includes Oxycodone and OxymorphoneOxycodone Positive [A ] UI Reference Range: .Oxycodone Conf, MS, UR 2594 ng/mL UI Reference Range: Dctbcv=786Ppynyclosrp Positive [A ] UI Reference Range: .Oxymorphone Conf, MS, UR 1096 ng/mL UI Reference Range: Rfqurs=099VZU, Urine Negative ng/mL UI Reference Range: Cutoff=25Methadone Screen, Urine Negative ng/mL UI Reference Range: Ifoghp=408Aqzxytjavszl, Urine Negative ng/mL UI Reference Range: Sfiutv=827Iaknlntg, Urine Negative ng/mL UI Reference Range: Cutoff=2.0Test includes Fentanyl and NorfentanylThis test was developed and its performance characteristicsdetermined by [facility]. It has not been cleared orapproved by the Food and Drug Administration.Tramadol Negative ng/mL UI Reference Range: Arudoi=410Osmczypbberfu, Urine Negative ng/mL UI Reference Range: Cutoff=10Creatinine, Urine 211.5 mg/dL UI Reference Range: 20.0-300.0pH, Urine 5.0 UI Reference Range: 4.5-8.9Performed at: - [facility] [id number] [place], [place] [id number] Director: Ray Melendrez PhD, Phone: [phone] at: [facility] [address] [id number] Director: Jerald Wakefield PhD, Phone: [phone] Start: 03-05-2025 MRI of lumbar spine with [...] SARS-CoV-2 & FLU Antigen (Rapid) Dr. Kristen Bera Work Phone: Start: 08-14-[address] [...] MRI of brain with contrast MD Marshall aguirre O[facility] Start: 02-09-2023 X-ray of cervical spine MD Marshall cao [facility] Start: 01-18-2023 Cardiovascular stress test using pharmacologic stress agent MD Marshall Bear [facility] Start: 11-14-2022 Computed tomography of abdomen and pelvis with intravenous contrast MD Marshall HARKINS Start: 09-27-2022 Level iv surg pathology gross&microscopic exam Jose Juan Pena MD Work Phone: Start: 09-27-2022 Colonoscopy flx dx w/collj spec when pfrmd Edilia Hunter PA-C Work Phone: Start: 09-27-2022 Esophagogastroduodenoscopy transoral diagnostic Jose Juan Pena MD Work Phone: Start: 09-27-2022 Gluc bld gluc mntr dev cleared fda spec home use Jsoe Juan Pena MD Work Phone: Start: 09-27-2022 [...] Start: 08-10-2021 Influenza Types A,B Direct FA ([facility]) Dr. Weston Gutierrez Work Phone: Start: 08-10-2021 End: 08-10-2021 Respiratory syncytial virus antigen assay Dr. Weston Gutierrez Work Phone: Start: 07-29-2021 Influenza Types A,B Direct FA ([facility]) Dr. Weston Gutierrez Work Phone: Start: 07-29-2021 [...] Author Start: 09-27-2027 Colonoscopy COLONOSCOPY [facility] Start: 09-27-2027 COLORECTAL CANCER SCREENING COLORECTAL CANCER SCREENING [facility] Start: 09-27-2027 Screening for malign ant neoplasm of colon [facility] Start: 05-22-2025 CBC W Auto Different ial panel - Blood [facility] Start: 05-22-2025 Comprehensive metabo lic 2000 panel - Serum or Plasma [facility] Start: 05-22-2025 Hemoglobin A1c/Hemoglobin.total in Blood [facility] Start: 05-22-2025 Lipid 1996 panel - S ariadne or Plasma [facility] Start: 05-22-2025 Thyroid stimulating hormone measurement [facility] Start: 05-22-2025 Vitamin B12 measurement [facility] Start: 05-22-2025 Vitamin D, 25-hydrox y measurement [facility] Start: 05-15-2025 Thyroid stimulating hormone measurement [facility] Start: 05-15-2025 Vitamin B12 measurement [facility] Start: 05-15-2025 Vitamin D, 25-hydrox y measurement [facility] Start: 03-06-2025 Procedure [facility] Start: 02-25-2025 End: 02-25-2025 Evaluation of diagnostic study results [facility] Start: 01-31-2025 X-ray of lumbosacral spine L/S Spine Min 4 Views [facility] Start: 01-31-2025 XR Spine Lumbar and Sacrum GE 4 Views [facility] Start: 12-12-2023 Patient discharge [facility] Start: 12-10-2023 Consultation [facility] Start: 12-10-2023 Care regimes management [facility] Start: 12-10-2023 Notification of physician [facility] Start: 12-10-2023 [facility] Start: 12-10-2023 Following clinical p athway protocol [facility] Start: 12-10-2023 Ambulation without limitation [facility] Start: 12-10-2023 Assessment of risk o f venous thromboembolism [facility] Start: 12-10-2023 Insertion of cathete r into peripheral vein [facility] Start: 12-10-2023 Providing care accor ding to standard [facility] Start: 12-10-2023 Referral to occupati onal therapist [facility] Start: 12-10-2023 Referral to service [facility] Start: 12-09-2023 End: 12-10-2023 [facility] Start: 12-10-2023 Admission procedure [facility] Start: 12-09-2023 End: 12-09-2023 Blood culture [facility] Start: 11-08-2023 Patient referral [facility] Work Phone: Start: 11-01-2023 [facility] Start: 10-26-2023 Patient discharge [facility] Start: 10-26-2023 Referral to service [facility] Start: 10-25-2023 Bone marrow biopsy, needle or trocar [facility] Start: 10-25-2023 End: 10-26-2023 [facility] Start: 10-25-2023 Catheterization of vein [facility] Start: 10-25-2023 Vital signs measurements [facility] Start: 10-25-2023 Consultation [facility] Start: 10-25-2023 Care planning and pr oblem solving actions [facility] Start: 10-25-2023 [facility] Start: 10-22-2023 Consultation [facility] Start: 10-22-2023 End: 10-22-2023 Blood culture [facility] Start: 10-22-2023 End: 10-22-2023 [facility] Start: 10-21-2023 Following clinical p athway protocol [facility] Start: 10-21-2023 Aspiration precautions [facility] Start: 10-21-2023 Assessment of risk o f venous thromboembolism [facility] Start: 10-21-2023 Cardiac monitoring [facility] Start: 10-21-2023 Care regimes management [facility] Start: 10-21-2023 Catheterization of vein [facility] Start: 10-21-2023 Elevation of head of bed [facility] Start: 10-21-2023 Exercises [facility] Start: 10-21-2023 Fall prevention [facility] Start: 10-21-[address] anned interventions [facility] Start: 10-21-2023 Inhalation therapy procedure [facility] Start: 10-21-2023 Insertion of cathete r into peripheral vein [facility] Start: 10-21-2023 Introduction of urin jeaneth catheter [facility] Start: 10-21-2023 Measuring intake and output [facility] Start: 10-21-2023 Notification of physician [facility] Start: 10-21-2023 Patient referral to dietitian [facility] Start: 10-21-2023 Providing care accor ding to standard [facility] Start: 10-21-2023 Provision of activit y privileges [facility] Start: 10-21-2023 Referral to occupati onal therapist [facility] Start: 10-21-2023 Referral to service [facility] Start: 10-21-2023 Speech therapy assessment [facility] Start: 10-21-2023 Tobacco use cessatio n education [facility] Start: 10-21-2023 [facility] Start: 10-21-2023 Verification routine [facility] Start: 10-21-2023 Admission procedure [facility] Start: 10-21-2023 Hospital admission, emergency, from emergency room, medical nature [facility] Start: 10-21-2023 Oxygen therapy [facility] Start: 10-21-2023 End: 10-21-2023 [facility] Start: 10-21-2023 Patient referral to dietitian [facility] Start: 10-16-2023 Patient referral [facility] Work Phone: Start: 10-01-2023 [facility] Start: 08-24-2023 X-ray of lumbar spin e, two or three views Lumbar Spine 2 or 3 Views [facility] Start: 08-24-2023 XR Lumbar spine 2 or 3 Views [facility] Start: 08-14-2023 [facility] Start: 08-14-2023 [facility] Start: 08-14-2023 End: 08-14-2023 Blood culture [facility] Start: 08-14-2023 Advance Directive Discussion Advance Directive Discussion [facility] Start: 08-14-2023 Bacteria identified in Blood by Culture Blood Culture [facility] Start: 08-14-2023 Bacteria identified in Urine by Culture Urine Culture [facility] Start: 08-14-2023 Depression Assessment Depression Ass essment [facility] Start: 08-04-2023 [facility] Start: 07-20-2023 Patient discharge [facility] Start: 07-20-2023 Referral to service [facility] Start: 07-18-2023 Care regimes management [facility] Start: 07-18-2023 Notification of physician [facility] Start: 07-18-2023 [facility] Start: 07-18-2023 Following clinical p athway protocol [facility] Start: 07-18-2023 Application of intermittent pneumatic compression device [facility] Start: 07-18-2023 Bedrest [facility] Start: 07-18-2023 Catheterization of vein [facility] Start: 07-18-2023 Consultation [facility] Start: 07-18-2023 Elevation of head of bed [facility] Start: 07-18-2023 Following clinical p athway protocol [facility] Start: 07-18-2023 Incentive spirometry [facility] Start: 07-18-2023 Measuring intake and output [facility] Start: 07-18-2023 Neurovascular assessment [facility] Start: 07-18-2023 Oxygen therapy [facility] Start: 07-18-2023 Patient education [facility] Start: 07-18-2023 Procedure discontinued [facility] Start: 07-18-2023 Recommendation to co ntinue with treatment [facility] Start: 07-18-2023 Taking patient vital signs [facility] Start: 07-18-2023 Admission procedure [facility] Start: 05-19-2023 Anes dx/ther nerve block/injection prone pos ANESTH N BLOCK/INJ PRONE [facility] Start: 05-19-2023 Njx anes&/strd w/img tfrml edrl lmbr/sac 1 lvl NJX AA&/STRD TFRM EPI L/S 1 [facility] Start: 05-19-2023 Njx dx/ther sbst int rlmnr lmbr/sac w/img gdn NJX INTERLAMINAR LMBR/SAC [facility] Start: 05-15-2023 Injection using fluoroscopic guidance [facility] Start: 05-15-2023 Patient discharge [facility] Start: 05-11-2023 Patient referral [facility] Work Phone: Start: 04-14-2023 Covid-19 Vaccine () Covid-19 Vaccine () [facility] Start: 04-14-2023 Influenza vaccination [facility] Start: 03-31-2023 Patient referral [facility] Work Phone: Start: 08-14-2022 ADVANCE DIRECTIVE DISCUSSION ADVANCE DIRECTIVE DISCUSSION [facility] Start: 08-14-2022 DEPRESSION ASSESSMENT DEPRESSION ASS ESSMENT [facility] Start: 06-21-2022 Colonoscopy COLONOSCOPY [facility] Start: 06-21-2022 COLORECTAL CANCER SCREENING COLORECTAL CANCER SCREENING [facility] Start: 06-20-2022 Njx dx/ther sbst int rlmnr lmbr/sac w/img gdn NJX INTERLAMINAR LMBR/SAC [facility] Start: 06-20-2022 Injection using fluoroscopic guidance [facility] Work Phone: Start: 06-20-2022 Patient discharge [facility] Start: 04-14-2022 Influenza vaccination INFLUENZA (#1) [facility] Start: 03-01-2022 Anes open/surg arthroscopic proc knee joint nos ANESTH KNEE JOINT SURGERY [facility] Work Phone: Start: 03-01-2022 Arthrs kne surg w/meniscectomy med/lat w/shvg KNEE ARTHROSCOPY/SURGERY [facility] Work Phone: Start: 03-01-2022 Gait training procedure [facility] Work Phone: Start: 03-01-2022 Patient discharge [facility] Work Phone: Start: 03-01-2022 Application of ice c ollar, cap or bag [facility] Work Phone: Start: 03-01-2022 Catheterization of vein [facility] Work Phone: Start: 03-01-2022 Elevation of affecte d extremity [facility] Work Phone: Start: 03-01-2022 Following clinical p athway protocol [facility] Work Phone: Start: 03-01-2022 Procedure discontinued [facility] Work Phone: Start: 03-01-2022 Taking patient vital signs [facility] Work Phone: Start: 03-01-2022 Vital signs measurements [facility] Work Phone: Start: 03-01-2022 [facility] Work Phone: Start: 03-01-2022 Medication education [facility] Work Phone: Start: 07-10-2021 COVID-19 VACCINE (4 - Booster for Pfizer series) COVID-19 VACCINE (4 - Booster for Pfizer series) [facility] Start: 07-10-2021 COVID-19 VACCINE (4 - Pfizer series) COVID-19 VACCINE (4 - Pfizer series) [facility] Start: 04-17-2020 Hepatitis B screening URINE ALBUMIN:CREATININE RATIO [facility] Start: 04-09-2020 Hepatitis B surface antibody level LDL CHOLESTEROL [facility] Start: 03-20-2020 PNEUMOCOCCAL: 65+ (3 - PPSV23 if available, else PCV20) PNEUMOCOCCAL: 65+ (3 - PPSV23 if available, else PCV20) [facility] Start: 03-20-2020 PNEUMOCOCCAL: 65+ (3 - PPSV23 or PCV20) PNEUMOCOCCAL: 65+ (3 - PPSV23 or PCV20) [facility] Start: 01-28-2020 Shingrix Vaccine (2 of 2) Mckeon grix Vaccine (2 of 2) [facility] Start: 11-29-2019 Glaucoma screening Dilated Retinal E xam [facility] Start: 11-29-2019 Hepatitis C antibody , confirmatory test DILATED RETINAL EXAM [facility] Start: 11-22-2019 ANNUAL PCP TEAM STUDIO DESIGNER SHADI DISEASE VISIT ANNUAL PCP TEAM CHRONIC DISEASE VISIT [facility] Start: 10-10-2019 Hemoglobin A1c measurement HbA1C [facility] Start: 10-10-2019 Hemoglobin A1c/Hemoglobin.total in Blood HBA1C [facility] Start: 07-17-2019 3 comp foot exam completed DIABETIC FOOT EXAM [facility] Start: 07-17-2019 Diabetic foot examination Diabetic F oot Exam [facility] Start: 2013 Hepatitis B Vaccine (1 of 3 - Risk 3-dose series) Hepatitis B Vaccine (1 of 3 - Risk 3-dose series) [facility] Start: 2013 RSV Vaccine (1 - 1-d ose 60+ series) RSV Vaccine (1 - 1-dose 60+ series) [facility] Start: 03-08-2013 Urine microalbumin profile [facility] Start: 2003 SHINGRIX VACCINE (1 of 2) MCKEON GRIX VACCINE (1 of 2) [facility] Start: 1998 COLOGUARD (FIT-DNA) COLOGUARD (FIT-D NA) [facility] Start: [address] COLONOGRAPHY [facility] Start: 1998 FECAL OCCULT BLOOD FECAL OCCULT BLOO D [facility] Start: 1998 Screening for malign ant neoplasm of colon [facility] Start: 1998 SIGMOIDOSCOPY SIGMOIDOSCOPY [facility] Start: 1983 Zoledronic acid therapy ALPHA- 1 ANTITRYPSIN DEFICIENCY SCREENING [facility] Start: 1971 SPIROMETRY SPIROMETRY [facility] Acid fast bacilli culture [facility] Alanine aminotransfe rase [Enzymatic activity/volume] in Serum or Plasma [facility] Albumin [Mass/volume ] in Serum or Plasma [facility] Alkaline phosphatase [Enzymatic activity/volume] in Serum or Plasma [facility] Anion gap in Serum o r Plasma [facility] Bacteria identified in Unspecified specimen by Anaerobe culture [facility] Basic metabolic 2008 panel with ionized calcium - Serum or Plasma [facility] Bilirubin measuremen t, urine [facility] Bilirubin, total measurement [facility] Bone marrow aspirati on procedure [facility] BUN/Creatinine ratio [facility] Calcium [Mass/volume ] in Serum or Plasma [facility] Carbon dioxide, tota l [Moles/volume] in Central venous blood [facility] Cardiac event recording [facility] CBC W Auto Different ial panel - Blood [facility] CBC W Auto Different ial panel - Blood [facility] Cholesterol [Mass/vo lume] in Serum or Plasma [facility] Cholesterol in HDL [Mass/volume] in Serum or Plasma [facility] Comprehensive metabo lic 2000 panel - Serum or Plasma [facility] Creatinine [Mass/vol ume] in Serum or Plasma [facility] End: 09-16-2023 EGD DIAGNOSTIC EGD DIAGNOSTIC Endoscopy Routine Epigastric pain 1 Occurrences starting 09/16/2022 until 09/16/2023 [facility] Work Phone: Comment on above: 1 Occurrences starti ng 09/16/2022 until 09/16/2023 End: 09-28-2024 EGD DIAGNOSTIC EGD DIAGNOSTIC Endoscopy Routine Epigastric pain 1 Occurrences starting 09/28/2023 until 09/28/2024 [facility] Work Phone: Comment on above: 1 Occurrences starti ng 09/28/2023 until 09/28/2024 Erythrocyte mean corpuscular volume determination [facility] Fungus identified in Unspecified specimen by Fungus stain [facility] Glucose [Mass/volume ] in Serum or Plasma [facility] Hematocrit [Volume Fraction] of Blood [facility] Hemoglobin [Mass/vol ume] in Blood [facility] Hemoglobin [Presence ] in Urine [facility] Hemoglobin A1c/Hemoglobin.total in Blood [facility] Hemoglobin A1c/Hemoglobin.total in Blood [facility] Hepatic function panel [facility] Leukocytes [#/volume ] in Blood [facility] Lipid 1995 panel - S ariadne or Plasma [facility] Lipid 1995 panel - S [facility] or Plasma [facility] Low density lipoprot ein cholesterol measurement [facility] Mean corpuscular hemoglobin concentration determination [facility] Mean corpuscular hemoglobin determination [facility] Measurement of keton es in urine using dipstick [facility] Measurement of renal function [facility] Microbial culture, b cinda fluid [facility] Microscopic urinalysis [facility] MR Cervical spine [facility] MR Cervical spine [facility] MR Lumbar spine WO a nd W contrast IV [facility] Mycobacterium sp identified in Unspecified specimen by Organism specific culture [facility] Myelogram [facility] Neutrophil count [facility] Neutrophil percent differential count [facility] NM Heart Views W str ess and W radionuclide IV [facility] Patient Education [facility] Work Phone: Patient referral [facility] Work Phone: pH of Urine [facility] Platelets [#/volume] in Blood [facility] Potassium measurement [facility] Red blood cell count [facility] Red cell distributio n width determination [facility] End: 08-09-2023 Screening colonoscopy COLONOSCOPY SCREENING Endoscopy Routine History of colonic polyps 1 Occurrences starting 08/09/2022 until 08/09/2023 [facility] Work Phone: Comment on above: 1 Occurrences starti ng 08/09/2022 until 08/09/2023 Serum chloride measurement [facility] Sodium measurement [facility] Specific gravity of Urine [facility] Thyroid stimulating hormone measurement [facility] Total cholesterol:HD L ratio measurement [facility] Total protein measurement [facility] Triglycerides measurement [facility] Urea nitrogen [Mass/volume] in Serum or Plasma [facility] Urinalysis, blood, qualitative [facility] Urine dipstick for glucose [facility] Urine dipstick for leukocyte esterase [facility] Urine dipstick for nitrite [facility] Urine dipstick for protein [facility] Urine examination [facility] Urine microscopy: epithelial cells [facility] Urine Microscopy: wh ite cells [facility] Urobilinogen [Presen ce] in Urine [facility] US Heart [facility] VLDL cholesterol measurement [facility] Immunizations Immunization Date Immunization Notes Care Provider Swathi brizuela 07-18-2024 Seasonal trivalent influenza vaccine, adjuvanted, preservative free Dr. Marshall Bear MD Work Phone: [facility] 05-17-2023 Influenza High-Dose Quadrivalent Dr. Marshall Bear MD Work Phone: [facility] 05-17-2023 RSV Adult BiValent (Abrysvo) Dr. Marshall Bear MD Work Phone: [facility] 03-14-2022 influenza virus vacc ine, unspecified formulation Jose Juan Pena MD Work Phone: [facility] 05-15-2021 Covid (Pfizer) Dr. Marshall george MD Work Phone: [facility] 04-22-2021 influenza, injectabl e, quadrivalent, preservative free Dr. Marshall Bear MD Work Phone: [facility] 11-12-2020 Covid (Pfizer) Dr. Weston Gutierrez Work Phone: [facility] 10-22-2020 Covid (Pfizer) Dr. Weston Gutierrez Work Phone: [facility] 06-01-[address] Weston Gutierrez Work Phone: [facility] 04-03-2020 influenza, injectabl e, quadrivalent, preservative free Dr. aMrshall Bear MD Work Phone: [facility] 12-03-[address] Marshall Bear MD Work Phone: [facility] 05-13-2019 pneumococcal polysaccharide vaccine, [address] Marshall Bear MD Work Phone: [facility] 05-06-2019 influenza, injectabl e, quadrivalent, preservative free Dr. Marshall Bear MD Work Phone: [facility] 07-17-2018 Influenza, high dose seasonal Dr. Marshall Bear MD Work Phone: [facility] 07-17-2018 influenza, high dose seasonal, preservative-free Edilia Hokendauqua PA-C Work Phone: [facility] Work Phone: 07-17-2018 pneumococcal conjuga te vaccine, 13 valent Edilia Hokend[place] PA-C Work Phone: [facility] Work Phone: 07-17-2017 influenza, injectabl e, quadrivalent, contains preservative Edilia H[place] PA-C Work Phone: [facility] 07-17-2017 influenza, injectabl e, quadrivalent, preservative free Dr. Marshall Bear MD Work Phone: [facility] 07-15-2016 influenza, injectabl e, quadrivalent, contains preservative Edilia Hokend[place] PA-C Work Phone: [facility] 07-29-2015 influenza, injectabl e, quadrivalent, contains preservative Edilia Titi PA-C Work Phone: [facility] Work Phone: 07-29-2015 influenza, injectabl e, quadrivalent, preservative free Dr. Marshall Bear MD Work Phone: [facility] 03-20-2015 pneumococcal polysaccharide vaccine, 23 valent Edilia Titi PA-C Work Phone: [facility] 06-10-2014 influenza, injectabl e, quadrivalent, preservative free Dr. Marshall Bear MD Work Phone: [facility] 06-10-2014 influenza, seasonal, injectable Edilia H[place] PA-C Work Phone: [facility] 03-07-2013 tetanus and diphther ia toxoids, not adsorbed, for adult use Edilia Hokend[place] PA-C Work Phone: [facility] 06-14-2012 influenza virus vacc ine, unspecified formulation Edilia Titi PA-C Work Phone: [facility] 06-25-2010 influenza virus vacc ine, unspecified formulation Edilia Titi PA-C Work Phone: [facility] 06-05-2009 influenza virus vacc ine, unspecified formulation Edilia Titi PA-C Work Phone: [facility] Work Phone: 07-23-2008 influenza, injectabl e, quadrivalent, preservative free Dr. Marshall Bear MD Work Phone: [facility] 07-18-2007 influenza virus vacc ine, unspecified formulation Edilia Titi PA-C Work Phone: [facility] Work Phone: 06-13-2006 influenza virus vacc ine, unspecified formulation Edilia H[place] PA-C Work Phone: [facility] Work Phone: Payers Date Payer Category Payer Self-pay [id number] 2024 Self-pay [id number] 2007 Medicare [id number] 2007 Medicare [employer] [place] [id number] 2007-Present [phone] [address] [place] [address] HMO [id number] Medicare [id number] Self-pay [id number] Unknown [id number] Unknown [id number] [id number] Unknown [id number] [id number] Unknown [id number] 2.840.1.656851.3.579.2.462 Unknown [id number] 2.16.840.1.100737.3.579.2.462 Unknown [id number] 2.16.840.1.784389.3.579.2.462 Unknown [id number] 2.16.840.1.931521.3.579.2.462 Unknown [id number] 2.16.840.1.342442.3.579.2.462 Unknown [id number] 2.16.840.1.281055.3.579.2.462 Unknown [id number] 2.16.840.1.466945.3.579.2.462 Unknown [id number] 2.16.840.1.630159.3.579.2.462 Unknown [id number] 2.16.840.1.975324.3.579.2.462 Unknown [id number] 2.16840.1.329715.3.579.2.462 Unknown [id number] 2.16.840.1.000426.3.579.2.462 Unknown [id number] 2.16.840.1.309035.3.579.2.462 Unknown [id number] 2.16.840.1.291325.3.579.2.462 Unknown [id number] 2.16.840.1.571889.3.579.2.462 Unknown [id number] 2.16.840.1.129823.3.579.2.462 Unknown [id number] 2.16.840.1.804091.3.579.2.462 Unknown [id number] 2.16.840.1.318448.3.579.2.462 Unknown [id number] 2.16.840.1.304836.3.579.2.462 Unknown [id number] 2.16.840.1.863097.3.579.2.462 Unknown [id number] 2.16840.1.915873.3.579.2.462 Unknown [id number] 2.16.840.1.153619.3.579.2.462 Unknown [id number] 2.16.840.1.019076.3.579.2.462 Unknown [id number] 2.16840.1.183183.3.579.2.462 Unknown [id number] 2.16840.1.480439.3.579.2.462 Unknown [id number] 2.16840.1.110467.3.579.2.462 Unknown [id number] [id number] Social History Date Type Detail Facility Start: 10-04-2021 End: 12-10-2023 Tobacco smoking status [facility] Unknown if ever smoked [facility] Start: 08-16-2019 None [facility] Start: 08-16-2019 With Family [facility] Start: 09-03-2020 Chew [facility] Start: 1955 Sex Assigned At Male W [facility] Start: 10-13-2011 End: 10-04-2024 Tobacco smoking status LAIS Ex-smoker [facility] History of tobacco use Current smoker [facility] History of tobacco use Cigarette Smoker [facility] Start: 10-13-2011 End: 10-20-2022 Tobacco use and exposure User of smokeless tobacco [facility] History of tobacco use Chews Tobacco [facility] Start: 08-09-2022 End: 09-28-2022 Alcohol intake Current drinker of alcohol (finding) [facility] Start: 08-09-2022 End: 08-28-2022 Alcohol intake [facility] Start: 06-20-2017 Alcohol Comment rarely [facility] Start: 1955 Sex Assigned At Not on file [facility] Start: 09-27-2022 Tobacco Comment snuff 1 can a week [facility] Start: 10-20-2022 End: 10-11-2023 Alcohol intake Ex-drinker (finding) [facility] Start: 10-20-2022 Tobacco Comment One can a week .States only smoked occasionally years ago. [facility] Start: 08-28-2022 End: 11-18-2022 Tobacco use panel [facility] Adult Depression Screening Assessment 0 [facility] Medical Equipment Procedure Code Equipment Code Equipment [...] supine position transitioning to prone COUGAR LS [id number] FDA Start: 01-19-2024 Fusion, spine, lumbar, 360 [...] supine position transitioning to prone COUGAR LS [id number] FDA Start: 01-19-2024 Fusion, spine, lumbar, 360 [...] supine position transitioning to prone COUGAR LS [id number] FDA Start: 01-19-2024 Fusion, spine, lumbar, 360 [...] supine position transitioning to prone COUGAR LS [id number] FDA Start: 01-19-2024 Fusion, spine, lumbar, 360 [...] supine position transitioning to prone COUGAR LS [id number] FDA Start: 01-19-2024 Fusion, spine, lumbar, 360 [...] supine position transitioning to prone COUGAR LS [id number] FDA Start: 01-19-2024 Fusion, spine, lumbar, 360 [...] supine position transitioning to prone COUGAR LS [id number] FDA Start: 01-19-2024 Fusion, spine, lumbar, 360 [...] supine position transitioning to prone COUGAR LS [id number] FDA Start: 01-19-2024 Fusion, spine, lumbar, 360 [...] supine position transitioning to prone COUGAR LS [id number] FDA Start: 01-19-2024 Fusion, spine, lumbar, 360 [...] supine position transitioning to prone COUGAR LS [id number] FDA Start: 01-19-2024 Fusion, spine, lumbar, 360 [...] cervical, anterior approach, with fusion STRIP,BONE CANC [id number] FDA Start: 09-03-2020 Discectomy, spine, cervical, anterior [...] cervical, anterior approach, with fusion STRIP,BONE CANC [id number] FDA Start: 09-03-2020 Discectomy, spine, cervical, anterior [...] cervical, anterior approach, with fusion STRIP,BONE CANC [id number] FDA Start: 09-03-2020 Discectomy, spine, cervical, anterior [...] cervical, anterior approach, with fusion STRIP,BONE CANC [id number] FDA Start: 09-03-2020 Discectomy, spine, cervical, anterior [...] cervical, anterior approach, with fusion STRIP,BONE CANC [id number] FDA Start: 09-03-2020 Discectomy, spine, cervical, anterior [...] cervical, anterior approach, with fusion STRIP,BONE CANC [id number] FDA Start: 09-03-2020 Discectomy, spine, cervical, anterior [...] cervical, anterior approach, with fusion STRIP,BONE CANC [id number] FDA Start: 09-03-2020 Discectomy, spine, cervical, anterior [...] cervical, anterior approach, with fusion STRIP,BONE CANC [id number] FDA Start: 09-03-2020 Discectomy, spine, cervical, anterior [...] cervical, anterior approach, with fusion STRIP,BONE CANC [id number] FDA Start: 09-03-2020 Discectomy, spine, cervical, anterior [...] cervical, anterior approach, with fusion STRIP,BONE CANC [id number] FDA Start: 09-03-2020 Discectomy, spine, cervical, anterior [...] cervical, anterior approach, with fusion STRIP,BONE CANC [id number] FDA Start: 09-03-2020 Discectomy, spine, cervical, anterior [...] cervical, anterior approach, with fusion STRIP,BONE CANC [id number] FDA Start: 09-03-2020 Discectomy, spine, cervical, anterior [...] cervical, anterior approach, with fusion STRIP,BONE CANC [id number] FDA Start: 09-03-2020 Discectomy, spine, cervical, anterior [...] cervical, anterior approach, with fusion STRIP,BONE CANC [id number] FDA Start: 09-03-2020 Discectomy, spine, cervical, anterior [...] cervical, anterior approach, with fusion STRIP,BONE CANC [id number] FDA Start: 09-03-2020 Discectomy, spine, cervical, anterior [...] cervical, anterior approach, with fusion STRIP,BONE CANC [id number] FDA Start: 09-03-2020 Discectomy, spine, cervical, anterior [...] cervical, anterior approach, with fusion STRIP,BONE CANC [id number] FDA Start: 09-03-2020 Discectomy, spine, cervical, anterior [...] cervical, anterior approach, with fusion STRIP,BONE CANC [id number] FDA Start: 09-03-2020 Discectomy, spine, cervical, anterior [...] cervical, anterior approach, with fusion STRIP,BONE CANC [id number] FDA Start: 09-03-2020 Discectomy, spine, cervical, anterior [...] cervical, anterior approach, with fusion STRIP,BONE CANC [id number] FDA Start: 09-03-2020 Discectomy, spine, cervical, anterior [...] cervical, anterior approach, with fusion STRIP,BONE CANC [id number] FDA Start: 09-03-2020 Discectomy, spine, cervical, anterior [...] cervical, anterior approach, with fusion STRIP,BONE CANC [id number] FDA Start: 09-03-2020 Discectomy, spine, cervical, anterior [...] cervical, anterior approach, with fusion STRIP,BONE CANC [id number] FDA Start: 09-03-2020 Discectomy, spine, cervical, anterior [...] cervical, anterior approach, with fusion STRIP,BONE CANC [id number] FDA Start: 09-03-2020 Discectomy, spine, cervical, anterior [...] cervical, anterior approach, with fusion STRIP,BONE CANC [id number] FDA Start: 09-03-2020 Discectomy, spine, cervical, anterior [...] cervical, anterior approach, with fusion STRIP,BONE CANC [id number] FDA Start: 09-03-2020 Test blood sugar(s) one [...] End: 09-15-2022 PATCH,AMNION 2X3CM FDA Start: 07-18-2023 ()[id number] FDA Start: 07-18-2023 ()[id number] FDA Start: 07-18-2023 Blood Sugar Diagnostic (Freestyle [...] Facility 12-12-2023 Functional status Ambulates;Up ad shruti [facility] Work Phone: 10-26-2023 Functional status Ambulates [facility] Work Phone: 07-20-2023 Functional status Bedrest [facility] Work Phone: 07-20-2023 Functional status None [facility] Work Phone: Mental Status Date Assessment Result Facility 12-12-2023 Cognitive function Voice/Name [facility] Work Phone: 11-01-2023 Cognitive function Awake;Alert;Appropriat e [facility] Work Phone: 10-26-2023 Cognitive function Voice/Name [facility] Work Phone: 10-21-2023 Cognitive function Voice/Name [facility] Work Phone: 07-20-2023 Cognitive function Voice/Name [facility] Work Phone: 05-15-2023 Cognitive function Level Of Consciousness Sedated [facility] Work Phone: 05-15-2023 Cognitive function Voice/Name [facility] Work Phone: 06-20-2022 Cognitive function Voice/Name [facility] Work Phone: 03-01-2022 Cognitive function Level Of Cons ciousness Awake;Alert;Appropriate;Follow s Commands [facility] Work Phone: 03-01-2022 Cognitive function Voice/Name [facility] Work Phone: Clinical Notes 09-14-2011 to [...] spinal fusion acute January 31, 2025 7:43am [facility] Work Phone: 1(329) 257-663706-16-2025 Evaluation note* Diagnosis Onset Date Resolution Status [...] with insufficiency inactive February 25, 2025 8:41am [facility] Work Phone: 1(407) 996-943206-16-2025 Evaluation note* Diagnosis Onset Date Resolution Status Admit Date Essential (primary) hypertension acute January 27, 2025 10:41am Hyperlipemia acute January 27 025 10:41am Type 2 diabetes mellitus acute January 27, 2025 10:41am Vasovagal episode acute January 272024 10:41am Cervical radiculopathy acute [facility] 2024 7:43am History of fusion of cervical spine acute January 31, 2025 7:43am Scoliosis acute January 31 7:43am Status post lumbar spinal fusion acute January 31, 2025 7:43am Hyperlipemia acute February 25 8:41am Syncope acute February 25 8:41am H/O coronary artery bypass surgery September 14, 2011 resolved February 25 8:41am Nonrheumatic aortic (valve) stenosis with insufficiency inactive February 25, 2025 8:41am [facility] Work Phone: 1(120) 283-721706-16-2025 Evaluation note* Diagnosis Onset Date Resolution Status Admit Date Essential (primary) hypertension acute January 27, 2025 10:41am Hyperlipemia acute January 27 10:41am Type 2 diabetes mellitus acute January 27, 2025 10:41am Vasovagal episode acute January 272024 10:41am Cervical radiculopathy acute [facility] 2024 7:43am History of fusion of cervical spine acute January 31, 2025 7:43am Scoliosis acute January 31 7:43am Status post lumbar spinal fusion acute January 31, 2025 7:43am Hyperlipemia acute February 25 8:41am Syncope acute February 25 8:41am H/O coronary artery bypass surgery September 14, 2011 resolved February 25 8:41am Nonrheumatic aortic (valve) stenosis with insufficiency inactive February 25, 2025 8:41am Adjacent segment disease of lumbar spine with history of fusion procedure acute March 27, 2025 8:45am Degenerative disc disease (DDD) of lumbar region with discogenic back pain acute March 8:45am Lumbar stenosis with neurogenic claudication acute March 142024 8:45am [facility] Work Phone: 1(859) 541-964906-16-2025 Evaluation note* Diagnosis Onset Date Resolution Status [...] 31, 2025 7:43am Hyperlipemia acute February 25 025 8:41am Syncope acute February 25 8:41am H/O coronary artery bypass surgery September 14, 2011 resolved February 25 8:41am Nonrheumatic aortic (valve) stenosis with insufficiency inactive February 25, 2025 8:41am Adjacent segment disease of lumbar spine with history of fusion procedure acute March 27, 2025 8:45am Degenerative disc disease (DDD) of lumbar region with discogenic back pain acute March 8:45am Lumbar stenosis with neurogenic claudication acute March 142024 8:45am Acute upper respiratory infection acute May 15 10:43am Adjacent segment disease of lumbar spine with history of fusion procedure acute May 15, 2025 10:43am Bilateral primary osteoarthritis of knee acute May 152024 10:43am Degenerative disc disease (DDD) of lumbar region with discogenic back pain acute May 10:43am Essential (primary) hypertension acute May 15 10:43am Hyperlipemia acute May 15, 2025 10:43am Type 2 diabetes mellitus acute May 15, 2025 10:43am Hyperlipemia acute May 22, 2025 7:53am Syncope acute May 22 025 7:53am H/O coronary artery bypass surgery September 14, 2011 resolved May 22, 2025 7:53am Nonrheumatic aortic (valve) stenosis with insufficiency inactive 2024 7:53am [facility] Work Phone: 1([phone]) 649-442002-21-2025 Evaluation note* Diagnosis Onset Date Resolution Status Admit Date Status post lumbar spinal fusion acute October 04 9:49am Left foot pain suspected September 152024 9:49am [email or web address] Work Phone: 1(990) 281-795202-21-2025 Evaluation note* Diagnosis Onset Date Resolution Status Admit Date Status post lumbar spinal fusion acute February 21st, 2 025 9:49am Left foot pain suspected September 152024 9:49am Essential (primary) hypertension acute January 27, 2025 10:41am Hyperlipemia acute January 27, 025 10:41am Type 2 diabetes mellitus acute January 27, 2025 10:41am Vasovagal episode acute January 272024 10:41am [facility] Work Phone: 1(978) 766-973204-30-2024 Progress note Author Tarik Wilkinson [facility] December 12, 2023 10:31am Note Date/Time December 12, 2023 10: 29am [facility] Medical Records Department [address] [place] [address] Progress Note - Infect Disease 12/12/23 1028 MR#: [id number] Acct: [id number] Name: JARET BATES Rep #:[id number] : 1955 68 From: Tarik cao MD PCP: Dr. Marshall Bear MD Status:ADM IN Location: [facility] CY347-7 Physical Exam Narrative Pain is a little [...] 1031 <Electronically signed by Tarik Wilkinson MD> Rubiigner Signature (if applicable): CC: ~ Signed [facility] Work Phone: 1(576) 745-115404-29-2024 Progress note Author Ocoha Figueroa [facility] December 11, 2023 3:23pm Note Date/Time December 11, 2023 11: 01am [facility] Medical Records Department [address] [place] [address] Progress Note - Hospitalist 12/11/23 1059 MR#: [id number] Acct: [id number] Name: JARET BATES Rep #:[id number] : 1955 68 From: Ochoa Mcfarlane PCP: Dr. Marshall Bear MD Status:ADM IN Location: [place] [address] Reason for Visit Reason for Visit: Diagnoses [...] ago for discitis. He follows spine surgeon [facility]. Seen and examined General: Alert, Oriented x3, [...] Patient is a 68-year-old male who presented [facility] ED on 12/10/2023 with recurrent low back pain. 1. Recurrent low back pain, recent history of L4-5 laminectomy complicated by discitis/osteomyelitis, debility ? Admit under inpatient status to [facility]. MRI lumbar spine with and without [...] intraspinous abscess. Charges/Coding Visit Charges Inpatient E&M: 67237 Subs Hosp L2 12/11/23 1523 <Electronically signed by Ochoa Figueroa MD> Rubiigner Signature (if applicable): CC: ~ Signed [facility] Work Phone: 1(125) 413-942504-29-2024 Consult note Author Tarik Wilkinson [facility] December 11, 2023 1:07pm Note Date/Time December 11, 2023 1:0 7pm [facility] Medical Records Department [address] [place] [address] Consultation - Infectious Dx 12/11/23 1302 MR#: [id number] Acct: [id number] Name: JARET BATES Rep #:[id number] : 1955 68 From: Tarik cao MD PCP: Dr. Marshall Bear MD Status:ADM IN Location: [facility] SL748-9 Assessment & Plan Assessment/Plan (1) History of [...] performed and neg except as noted above. [facility] Medical History Agent orange exposure Alcohol use Ambulates with cane Arthritis Arthropathy of cervical facet joint Asthma Atherosclerotic heart disease of [place] coronary artery without angina pectoris Back pain [...] applicable): CC: Dr. Marshall Bear MD~ Signed [facility] Work Phone: [phone]) 583-975904-28-2024 Progress note Author Ochoa Figueroa [facility] December 10, 2023 11:21am Note Date/Time December 10, 2023 7:4 7am [facility] Medical Records Department [address] [place] [address] Progress Note - Hospitalist 12/10/23 0744 MR#: [id number] Acct: [id number] Name: JARET BATES Rep #:[id number] : 1955 68 From: Ochoa Mcfarlane PCP: Dr. Marshall Bear MD Status:ADM IN Location: [facility] VY522-5 Reason for Visit Reason for Visit: Diagnoses [...] 12/09/23 12/10/23 23:59 23:59 23:59 Intake Total 1890 / 1890 Balance 1890 / 1890 Lab / Micro Data 12/10/23 04:43 12/10/23 04:43 Labs: Laboratory Results - last 24 hr 12/09/23 21:37: WBC 6.1, RBC 3.71 L, Hgb 10.9 L, Hct 33.0 L, MCV 88.9, MCH 29.4,MCHC 33.0, RDW Std Deviation 44.4 H, RDW Coeff of Frankie 13.5, Plt Count 278, MPV 8.2, Immature Gran % (Auto) 0.200, Neut % (Auto) 62.5, Lymph % (Auto) 22.6, [place]% (Auto) 9.7, Eos % (Auto) 4.3, Baso [...] ago for discitis. He follows spine surgeon [facility]. Seen and examined General: Alert, Oriented x3, [...] Patient is a 68-year-old male who presented [facility] ED on 12/10/2023 with recurrent low back pain. 1. Recurrent low back pain, recent history of L4-5 laminectomy complicated by discitis/osteomyelitis, debility ? Admit under inpatient status to [facility]. MRI lumbar spine with and without [...] intraspinous abscess. Charges/Coding Visit Charges Inpatient E&M: 59794 Subs Hosp L2 12/10/23 1121 <Electronically signed by Ochoa Figueroa MD> Cosigner Signature (if applicable): CC: ~ Signed [facility] Work Phone: 1([phone]) 433-404204-28-2024 History and physical note Author Giuliano Pacheco [facility] December 10, 2023 4:40am Note Date/Time December 10, 2023 12: 14am [facility] Medical Records Department [address] [place] [address] H&P Exam - Hospitalist 12/10/23 0014 MR#: [id number] Acct: [id number] Name: JARET BATES Rep #:[id number] : 1955 68 From: Giuliano Mariah mcconnell DO PCP: Dr. Marshall Bear MD Status:ADM IN Location: [place] WV552-4 HPI - General General Date of Admission: 12/10/23 Date of Service: 12/10/23 Chief Complaint: Recurrent low back pain with recent history of discitis HPI Narrative JARET BATES, is a 68 M who presented to [facility] ED on 12/10/2023 with recurrent low back [...] pain, he was admitted for further management. [facility] Medical History (Updated 12/10/23 @ 04:[address] Giuliano Pacheco, ) Agent orange exposure Alcohol use Ambulates with cane Arthritis Arthropathy of cervical facet joint Asthma Atherosclerotic heart disease of [place] coronary artery without angina pectoris Back pain [...] % (Auto) 62.5, Lymph % (Auto) 22.6, [place]% (Auto) 9.7, Eos % (Auto) 4.3, Baso [...] Patient is a 68-year-old male who presented [facility] ED on 12/10/2023 with recurrent low back pain. 1. Recurrent low back pain, recent history of L4-5 laminectomy complicated by discitis/osteomyelitis, debility ? Admit under inpatient status to [facility]. MRI lumbar spine with and without [...] 75 minutes. Charges/Coding Visit Charges Inpatient E&M: 87140 Init Hosp L3 12/10/23 0440 <Electronically signed by Giuliano Pacheco DO> Cosigner Signature (if applicable): CC: Dr. Giuliano Pacheco DO; Dr. Marshall Bear MD~ Signed [facility] Work Phone: 1([phone]) 118-367803-20-2024 Procedure [facility] 10-26-2023 Discharge summary Author Vin Wheatley [facility] October 26, 2023 3:21pm Note Date/Time October 26, 2023 3:1 5pm [facility] Medical Records Department [address] [place] [address] Discharge Summary 10/26/23 1513 MR#: [id number] Acct: [id number] Name: JARET BATES Rep #:[id number] : 1955 68 From: Vin Wheatley DO PCP: Dr. Marshall Bear MD Status:ADM IN Location: [place] [id number]- 1 Providers Date of Admission: 10/21/23 Primary Care [...] for Consult: Bone Biopsy EMERGENT Consult: No Notified: Yes Date Notified: 10/25/23 Time Notified: [...] 10/22/23 17:14 RMA (Rec: 10/22/23 17:14 RMA [id number]) Nutrition Malnutrition Evidence of Malnutrition Exists Yes [...] 75.9 H, Lymph % (Auto) 13.5 L, [place] % (Auto) 8.8, Eos % (Auto) 0.8, [...] 14:09 EDT Reading Location ID and State: [facility] [place] , Service support , Meaningful Use Info [...] cbc, ESR, and vanc trough; fax to [phone]. Routine picc care per protocol. vancomycin 1,000 mg recon soln 2 g IV Q12H 38 Days Qty: 76 0RF Rx Instructions: stop date 12/03/23. Dx: spine osteomyelitis. Weekly bmp, cbc, ESR, and vanc trough; fax to [phone]. Routine picc care per protocol. Continued multivitamin [...] Health Service Charges/Coding Visit Charges Inpatient E&M: 98078 Disch Hosp >30min 10/26/23 1521 <Electronically signed by Vin Wheatley DO> Cosigner Signature (if applicable): CC: Dr. Vin Wheatley DO; Dr. Marshall Bear MD~ Signed [facility] Work Phone: 1(129) 846-526503-14-2024 Progress note Author Vin Wheatley [facility] October 26, 2023 3:13pm Note Date/Time October 26, 2023 9:2 3am [facility] Medical Records Department [address] [place] [address] Progress Note - Hospitalist 10/26/2314 MR#: [id number] Acct: [id number] Name: JARET BATES Rep #:[id number] : 1955 68 From: Vin Wheatley DO PCP: Dr. Marshall Bear MD Status:ADM IN Location: [place] [address] Reason for Visit Reason for Visit: Diagnoses [...] 10/22/23 17:14 RMA (Rec: 10/22/23 17:14 RMA [id number]) Nutrition Malnutrition Evidence of Malnutrition Exists Yes [...] 75.9 H, Lymph % (Auto) 13.5 L, [place] % (Auto) 8.8, Eos % (Auto) 0.8, [...] ok with missing this evening's dose. 10/26/23 1513 <Electronically signed by Vin Wheatley DO> Cosigner Signature (if applicable): CC: ~ Signed [facility] Work Phone: 1(862) 517-379303-14-2024 Progress note Author Ventura Godoy [facility] October 26, 2023 1:02pm Note Date/Time October 26, 2023 1:0 2pm [facility] Medical Records Department [address] [place] [address] Progress Note - Orthopedic 10/26/23 1300 MR#: [id number] Acct: [id number] Name: JARET BATES Rep #:[id number] : 1955 68 From: Ventura Fournier PCP: Dr. Marshall Bear MD Status:ADM IN Location: [facility] [id number]- 1 Subjective Subjective Mr. Bates is seen [...] 10/22/23 17:14 RMA (Rec: 10/22/23 17:14 RMA [id number]) Nutrition Malnutrition Evidence of Malnutrition Exists Yes [...] 75.9 H, Lymph % (Auto) 13.5 L, [place] % (Auto) 8.8, Eos % (Auto) 0.8, [...] Cosigner Signature (if applicable): CC: ~ Signed [facility] Work Phone: 1(585) 539-449003-14-2024 Progress note Author Tarik Wilkinson [facility] October 26, 2023 10:34am Note Date/Time October 26, 2023 10: 34am [facility] Medical Records Department [address] [place] [address] Progress Note - Infect Disease 10/26/23 1033 MR#: [id number] Acct: [id number] Name: JARET BATES Rep #:[id number] : 1955 68 From: Tarik cao MD PCP: Dr. Marshall Bear MD Status:ADM IN Location: [place] [address] Physical Exam Narrative Feeling much better, no [...] followup in 2 weeks. Wrote rx, d/w pillowcase sewer Will follow 10/26/234 <Electronically signed by Tarik Wilkinson MD> Cosigner Signature (if applicable): CC: ~ Signed [facility] Work Phone: 1(688) 655-248103-13-2024 Progress note Author Ochoa Figueroa [facility] October 25, 2023 4:43pm Note Date/Time October 25, 2023 4:4 2pm [facility] Medical Records Department [address] [place] [address] Progress Note - Hospitalist 10/25/23 1633 MR#: [id number] Acct: [id number] Name: JARET BATES Rep #:[id number] : 1955 68 From: Ochoa Mcfarlane PCP: Dr. Marshall Bear MD Status:ADM IN Location: [place] [address] Reason for Visit Reason for Visit: Diagnoses [...] 10/22/23 17:14 RMA (Rec: 10/22/23 17:14 RMA [id number]) Nutrition Malnutrition Evidence of Malnutrition Exists Yes [...] 73.8 H, Lymph % (Auto) 15.5 L, [place] % (Auto) 9.8, Eos % (Auto) 0.2, [...] ID are consulted. I talked to Dr. Gdooy, spine surgeon. PT andOT ordered. TSH normal. [...] level normal. Potassium replaced 10/20: Hypokalemia corrected. 10/23: Mild hypokalemia potassium corrected. [...] EST , Charges/Coding Visit Charges Inpatient E&M: 00039 Subs Hosp L2 10/25/23 1643 <Electronically signed by Ochoa Figueroa MD> Cosigner Signature (if applicable): CC: ~ Signed [facility] Work Phone: 1(912) 111-179903-13-2024 Procedure [facility] 10-25-2023 Consult [facility], [facility] 12:53pm Note Date/Time October 25, 2023 8:5 9am [facility] Medical Records Department [address] [place] [address] Pharmacokinetic/Renal -Consult 10/25/23 0854 MR#: [id number] Acct: [id number] Name: JARET BATES Rep #:[id number] : 1955 68 From: Dave rincon PCP: Dr. Marshall Bear MD Status:ADM IN Location: [place] [id number]- Consult Antibiotic Management Pharmacy has been consulted [...] 20:30 10/25/23 0859 <Electronically signed by Dave Martinez erg> Date _ Dave Fabian 10/25/23 1253 <Electronically signed by Tarik alegria MD> Cosigner Signature (if applicable): Date Tarik Wilkinson MD CC: ~ Signed [facility] Work Phone: 1(102) 224-806403-13-2024 Consult note Author [facility] October 25, 2023 12:44pm Note Date/Time October 25, 2023 10: 37am [facility] Medical Records Department [address] [place] [address] Consultation - Orthopedics 10/25/23 1028 MR#: [id number] Acct: [id number] Name: JARET BATES Rep #:[id number] : 1955 68 From: Bjorn Bradshaw MD PCP: Dr. Marshall Bear MD Status:ADM IN Location: [place] [address] HPI Consult Data Date of Consult: 10/25/23 [...] today. Severe low back pain, difficulty ambulating. [facility] Medical History Agent orange exposure Alcohol use Ambulates with cane Arthritis Arthropathy of cervical facet joint Asthma Atherosclerotic heart disease of [place] coronary artery without angina pectoris Back pain [...] History (Updated 10/21/23 @ 20:[address] aSra Reaves MD) Brother Heart disease Myocardial infarction [...] 10/22/23 17:14 RMA (Rec: 10/22/23 17:14 RMA [id number]) Nutrition Malnutrition Evidence of Malnutrition Exists Yes [...] 73.8 H, Lymph % (Auto) 15.5 L, [place] % (Auto) 9.8, Eos % (Auto) 0.2, [...] was signed. Charges/Coding Visit Charges Inpatient E&M: 50451 Init Hosp L3 10/25/23 1244 <Electronically signed [...] Emily Wilson DO; Modesto Abarca MD~ Signed [facility] Work Phone: 1(969) 957-327503-12-2024 Progress note Author Ochoamarisol Figueroa [facility] October 24, 2023 5:19pm Note Date/Time October 24, 2023 5:1 9pm [facility] Medical Records Department [address] [place] [address] Progress Note - Hospitalist 10/24/23 1713 MR#: [id number] Acct: [id number] Name: JARET BATES Rep #:[id number] : 1955 68 From: Ochoa Mcfarlane PCP: Dr. Marshall Bear MD Status:ADM IN Location: [place] [address] Reason for Visit Reason for Visit: Diagnoses [...] 1485 Output Total 550 / 1250 1999 Balance 3755.00 / 3295.00 -515 / -515 Medical Nutrition Assessment Dietitian: Malnutrition Criteria Met Start: 10/22/23 17:13 Freq: Status: Active Protocol: Document 10/22/23 17:14 RMA (Rec: 10/22/23 17:14 RMA [id number]) Nutrition Malnutrition Evidence of Malnutrition Exists Yes [...] 75.2 H, Lymph % (Auto) 14.4 L, [place] % (Auto) 8.9, Eos % (Auto) 0.9, [...] 76.1 H, Lymph % (Auto) 14.6 L, [place] % (Auto) 8.2, Eos % (Auto) 0.4, [...] EST , Charges/Coding Visit Charges Inpatient E&M: 60831 Subs Hosp L2 10/24/23 1719 <Electronically signed by Ochoa Figueroa MD> Cosigner Signature (if applicable): CC: ~ Signed [facility] Work Phone: 1(106) 347-761503-12-2024 Progress note Author Dae Das [facility] October 24, 2023 2:02pm Note Date/Time October 24, 2023 3:0 0pm [facility] Medical Records Department [address] [place] [address] Progress Note - Neurology 10/24/23 1355 MR#: [id number] Acct: [id number] Name: JARET BATES Rep #:[id number] : 1955 68 From: Dae Das MD PCP: Dr. Marshall Bear MD Status:ADM IN Location: [facility] [place] [address] Assessment and Plan: Neuro Assessment/Plan JARET BATES, [...] oriented following commands appropriately. 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 His confusion is [...] 4 Status: Complete hours and PRN Freq: [id number] Protocol: Activity Type Activity Date Activity User [...] 10/22/23 17:14 RMA (Rec: 10/22/23 17:14 RMA [id number]) Nutrition Malnutrition Evidence of Malnutrition Exists Yes [...] 75.2 H, Lymph % (Auto) 14.4 L, [place] % (Auto) 8.9, Eos % (Auto) 0.9, [...] Cosigner Signature (if applicable): CC: ~ Signed [facility] Work Phone: 1(493) 381-639703-12-2024 Progress note Author Tarik Wilkinson [facility] October 24, 2023 10:19am Note Date/Time October 24, 2023 10: 19am [facility] Medical Records Department [address] [place] [address] Progress Note - Infect Disease 10/24/23 1016 MR#: [id number] Acct: [id number] Name: JARET BATES Rep #:[id number] : 1955 68 From: Tarik cao MD PCP: Dr. Marshall Bear MD Status:ADM IN Location: [place] [address] Physical Exam Narrative Feeling better, back less [...] Cosigner Signature (if applicable): CC: ~ Signed [facility] Work Phone: 1(765) 484-677603-11-2024 Consult note Author Tarik Billings [facility] October 23, 2023 8:25pm Note Date/Time October 23, 2023 8:1 9pm [facility] Medical Records Department [address] [place] [address] Pharmacokinetic/Renal -Consult 10/23/232018 MR#: [id number] Acct: [id number] Name: JARET BATES Rep #:[id number] : 1955 68 From: Tarik Billings PCP: Dr. Marshall Bear MD Status:ADM IN Location: [place] [address] Consult Antibiotic Management Pharmacy has been consulted [...] was 14.3 and slightly below desired level ws94-62xkd/ml. Recommend an increase in dose to 1750mg iv q12h with new trough level before 4th dose given. Pharmacy Service will continue to monitor and adjust dosing as required. Follow-Up Labs Follow-Up Labs: Trough: Vancomycin (3.13.24 @0730) 10/23/232024 <Electronically signed by Tarik Billings> Date _ Tarik Conti Signature (if applicable): Date CC: ~ Signed [facility] Work Phone: 1([phone]) 558-507103-11-2024 Consult note Author Tarik Wilkinson [facility] October 23, 2023 3:13pm Note Date/Time October 23, 2023 3:1 3pm [facility] Medical Records Department [address] [place] [address] Consultation - Infectious Dx 10/23/23 1504 MR#: [id number] Acct: [id number] Name: JARET BATES Rep #:[id number] : 1955 68 From: Tarik cao MD PCP: Dr. Marshall Bear MD Status:ADM IN Location: [facility] RES580- 1 Assessment & Plan Assessment/Plan (1) Altered mental [...] to OR 07/18/[address] Godoy at [facility] for repeat laminectomy L4-5 on the [...] performed and neg except as noted above. [facility] Medical History Agent orange exposure Alcohol use Ambulates with cane Arthritis Arthropathy of cervical facet joint Asthma Atherosclerotic heart disease of [place] coronary artery without angina pectoris Back pain [...] 10/22/23 17:14 RMA (Rec: 10/22/23 17:14 RMA [id number]) Nutrition Malnutrition Evidence of Malnutrition Exists Yes [...] 76.1 H, Lymph % (Auto) 14.6 L, [place] % (Auto) 8.2, Eos % (Auto) 0.4, [...] Signed: Arnav Nobles MD at 11:55 EDT Reading Location ID and State: 968 / , Service support , Lumbar Spine MRI 10/23/23 09:23 IMPRESSION: [...] 11:52 EDT Reading Location ID and State: [facility] / [place] , Service support , 10/23/23 1510 <Electronically signed by Tarik Wilkinson MD> Cosigner [...] Emily Wilson DO; Modesto Abarca MD~ Signed [facility] Work Phone: 1(461) 256-975703-11-2024 Consult note Author Ventura Godoy [facility] October 23, 2023 2:59pm Note Date/Time October 23, 2023 2:3 2pm [facility] Medical Records Department [address] [place] [address] Consultation 10/23/23 1426 MR#: [id number] Acct: [id number] Name: JARET BATES Rep #:[id number] : 1955 68 From: Ventura Fournier PCP: Dr. Marshall Bear MD Status:ADM IN Location: [facility] [id number]- 1 Consult Date of Consult: 10/23/23 Reason [...] without contrast. It was turned down by [employer] and it was specifically turned down by Dr. Vipul Estrella. Apparently, [employer] is the security services specialist for his Medicare advantage plan. Request of [...] is there. This physician and his company, [employer], failed to consider that possibility and turned [...] This is a perfect illustration of why third-green party pre-CERT companies should be outlawed. Their [...] as he is in the hospital. 10/23/23 4199 <Electronically signed by Ventura Godoy DO> Cosigner [...] Emily Wilson DO; Modesto Abarca MD~ Signed [facility] Work Phone: 1(251) 651-621803-11-2024 Progress note Author Ochoa Figueroa [facility] October 23, 2023 1:57pm Note Date/Time October 23, 2023 1:5 7pm [facility] Medical Records Department [address] [place] [address] Progress Note - Hospitalist 10/23/23 1348 MR#: [id number] Acct: [id number] Name: JARET BATES Rep #:[id number] : 1955 68 From: Ochoa Mcfarlane PCP: Dr. Marshall Bear MD Status:ADM IN Location: [place] [address] Reason for Visit Reason for Visit: Diagnoses [...] 10/22/23 17:14 RMA (Rec: 10/22/23 17:14 RMA [id number]) Nutrition Malnutrition Evidence of Malnutrition Exists Yes [...] 76.1 H, Lymph % (Auto) 14.6 L, [place] % (Auto) 8.2, Eos % (Auto) 0.4, [...] TSH 2.40 10/23/23 06:38: POC Glucose 104 Micro: Microbiology 10/22/23 [...] 11:52 EDT Reading Location ID and State: [facility] / [place] , Service support , Physical Exam Narrative Seen and examined. [...] 76.1 H, Lymph % (Auto) 14.6 L, [place] % (Auto) 8.2, Eos % (Auto) 0.4, [...] 17:34 EST Reading Location ID and State: [facility] / [place] , Service support , Head/Neck CTA 10/21/23 17:19 IMPRESSION: No acute abnormality. No large vessel occlusions. 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 Electronically Signed: Toribio Giraldo MD at 17:49 EST Reading Location ID and State: [facility] / [place] , Service support , ADDENDUM: 10/21/23 1758 IMPRESSION: No acute abnormality. No large vessel occlusions. 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 N.B. : The above Results were Read Back by Toribio Giraldo MD to Kayli Granados DO, and understanding confirmed on 10/21/2023 17:51:20 (ET). Electronically Signed: Toribio Giraldo MD at 17:49 EST Reading Location ID and State: [facility] / [place] , Service support , Chest X-Ray 10/21/23 18:05 IMPRESSION: No definite acute or significant abnormality seen. Electronically Signed: Toribio Giraldo MD at 19:00 EST , Charges/Coding Visit Charges Inpatient E&M: 15717 Subs Hosp L3 10/23/23 1357 <Electronically signed by Ochoa Figueroa MD> Cosigner Signature (if applicable): CC: ~ Signed [facility] Work Phone: 1(650) 241-840403-10-2024 Progress note Author Ochoa Figueroa [facility] October 22, 2023 2:14pm Note Date/Time October 22, 2023 10: 49am [facility] Medical Records Department [address] [place] [address] Progress Note - Hospitalist 10/22/23 1047 MR#: [id number] Acct: [id number] Name: JARET BATES Rep #:[id number] : 1955 68 From: Ochoa Mcfarlane PCP: Dr. Marshall Bear MD Status:ADM [facility] Reason for Visit Reason for Visit: [...] % (Auto) 69.6, Lymph % (Auto) 20.2, [place]% (Auto) 9.6, Eos % (Auto) 0.0, Baso [...] Clarity Clear, Urine pH 7.0, Ur Specific [place] 1.010, Urine Protein 30 H, Urine Glucose [...] (Auto) 70.7 H, Lymph % (Auto) 18.4L, [place] % (Auto) 10.0, Eos % (Auto) 0.0, [...] 2.10 H, AST 22, ALT 22, Alkaline [id number], Total Protein 6.7, Albumin 3.2, Globulin 3.5, [...] % (Auto) 69.6, Lymph % (Auto) 20.2, [place]% (Auto) 9.6, Eos % (Auto) 0.0, Baso [...] Clarity Clear, Urine pH 7.0, Ur Specific [place] 1.010, Urine Protein 30 H, Urine Glucose [...] RDW Std Deviation 40.6, RDW Coeff of [place] 13.2, Plt Count 293, MPV 8.2, Immature Gran % (Auto) 0.600, Neut % (Auto) 70.7 H, Lymph % (Auto) 18.4L, [place] % (Auto) 10.0, Eos % (Auto) 0.0, [...] 17:34 EST Reading Location ID and State: [facility] / [place] , Service support , ADDENDUM: 10/21/23 1746 IMPRESSION: Chronic age related changes and atrophy. No acute abnormality or significant change. N.B. : The above Results were Read Back by Toribio Giraldo MD to Kayli Granados DO, and understanding confirmed on 10/21/2023 17:39:16 (ET). Electronically Signed: Toribio Giraldo MD at 17:34 EST Reading Location ID and State: [facility] / [place] , Service support , Head/Neck CTA 10/21/23 17:19 IMPRESSION: No acute abnormality. No large vessel occlusions. 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 Electronically Signed: Toribio Giraldo MD at 17:49 EST , ADDENDUM: 10/21/23 8123 IMPRESSION: No acute abnormality. No large vessel [...] Giraldo MD at 19:00 EST , Charges/Coding Addendum Addendum: Total time of [...] imagingis 40 minutes. Visit Charges Inpatient E&M: 41722 Subs Hosp L3 10/22/23 1414 <Electronically signed by Ochoa Figueroa MD> Cosigner Signature (if applicable): CC: ~ Signed [facility] Work Phone: 1(776) 198-165003-10-2024 Consult note Author [facility] October 22, 2023 1:48pm Note Date/Time October 22, 2023 1:3 6pm [facility] Medical Records Department [address] [place] [address] Consultation - Neurology 10/22/23 1329 MR#: [id number] Acct: [id number] Name: JARET BATES Rep #:[id number] : 1955 68 From: Bull Mcfarlane PCP: Dr. Marshall Bear MD Status:ADM IN Location: [place] [id number]- 1 Assessment and Plan: Neuro Assessment/Plan Assessment Examination [...] continuation of empiric antibiotics for post op [employer] infection while awaiting imaging result. -recommend ID [...] imaging of his lower back since surgery. [facility] Medical History (Updated 10/21/23 @ 20:[address] Sara Reaves MD) Agent orange exposure Alcohol use Ambulates with cane Arthritis Arthropathy of cervical facet joint Asthma Atherosclerotic heart disease of [place] coronary artery without angina pectoris Back pain [...] 4 Status: Active hours and PRN Freq: [id number] Protocol: Activity Type Activity Date Activity User [...] % (Auto) 69.6, Lymph % (Auto) 20.2, [place] % (Auto) 9.6, Eos % (Auto) 0.0, [...] Clarity Clear, Urine pH 7.0, Ur Specific [place] 1.010, Urine Protein 30 H, Urine Glucose [...] 70.7 H, Lymph % (Auto) 18.4 L, [place] % (Auto) 10.0, Eos % (Auto) 0.0, [...] MD at 17:34 EST , ADDENDUM: 10/21/23 0465 IMPRESSION: Chronic age related changes and atrophy. No acute abnormality or significant change. N.B. : The above Results were Read Back by Toribio Giraldo MD to Kayli Granados DO, and understanding confirmed on 10/21/2023 17:39:16 (ET). Electronically Signed: Toribio Giraldo MD at 17:34 EST Reading Location ID and State: [facility] / [place] , Service support , Head/Neck CTA 10/21/23 17:19 IMPRESSION: No acute abnormality. No large vessel occlusions. 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 Electronically Signed: Toribio Giraldo MD at 17:49 EST Reading Location ID and State: [facility] / [place] , Service support , ADDENDUM: 10/21/23 1758 IMPRESSION: No acute abnormality. No large vessel occlusions. 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 N.B. : The above Results were Read Back by Toribio Giraldo MD to Kayli Granados DO, and understanding confirmed on 10/21/2023 17:51:20 (ET). Electronically Signed: Toribio Giraldo MD at 17:49 EST Reading Location ID and State: [facility] / [place] , Service support , Chest X-Ray 10/21/23 18:05 IMPRESSION: No definite acute or significant abnormality seen. Electronically Signed: Toribio Giraldo MD at 19:00 EST Reading Location ID and State: [facility] / [place] , Service support , Active Medications Active Medications Active Medications: [...] 2 spray 10/21/23 20:32 Fluticasone 0.05% 1 [place] Nasal.Sry NASAL BID PRN allergies, congestion Gabapentin [...] mls @ 15 mls/hr 10/21/23 20:37 IV .[id number] PRN Saline Flush Sodium Chloride 250 mls @ 15 mls/hr 10/21/23 20:37 IV .[id number] PRN Additional IVPB Infusion Ceftriaxone Sodium 2 [...] 08:30 10/22/23 10:32 Chloride IV Infused Q4H [facility] Infusion Vancomycin HCl 1,500 mg/ 530 mls @ 250 mls/hr 10/22/23 20:00 Sodium Chloride IV Q12H [facility] Sodium Chloride 1,000 mls @ 75 mls/hr 10/22/23 10:50 10/22/23 11:49 IV 10/23/23 00:09 75 mls/hr .[id number] [facility] Administration Insulin Human Lispro 0 unit 10/21/23 22:00 10/22/23 11:55 Insulin Lispro 100 Unit/Ml Insuln.Pen SC Not Given ACHS [facility] Protocol Labetalol HCl 10 - 20 mg 10/21/23 20:32 Labetalol (Prefilled) 20 Mg/4 Ml IV Q10M PRN PRN to Maintain BP Goals Linaclotide 72 mcg 10/22/23 10:00 Linaclotide 72 Mcg Capsule PO DAILY [facility] Melatonin 3 mg 10/21/23 20:32 Melatonin 3 [...] Meq PO 10/22/23 14:01 40 meq Q3H [facility] Administration Prochlorperazine Edisylate 5 mg 10/21/23 20:32 [...] Emily Wilson DO; Modesto Abarca MD~ Signed [facility] Work Phone: 1(458) 955-576703-10-2024 [address] [facility] October 22, 2023 6:21am Note Date/Time October 22, 2023 3:1 2am [facility] Medical Records Department [facility] [address] [place] [address] Progress Note - Hospitalist 10/22/23310 MR#: [id number] Acct: [id number] Name: JARET BATES Rep #:[id number] : 1955 68 From: Sara Reaves MD PCP: Dr. Marshall Bear MD Status:ADM IN Location: [place] [address] Hospitalist Note Patient with onset fever, admission CXR without acute findings, no marked WBC elevation or shift, UA unremarkable. Will obtain procalcitonin, full respiratoryviral panel, COVID PCR. If unremarkable, may necessitate further imaging or consideration prophylactic abx therapy. 10/22/23 0313 <Electronically signed by Sara Reaves MD> Cosigner [...] Cosigner Signature (if applicable): cc: ~* Signed [facility] Work Phone: 1(183) 823-987003-10-2024 Discharge summary Author Kayli Granados [facility] October 22, 2023 12:08am Note Date/Time October 21, 2023 5:23 pm [facility] Medical Records Department [address] [place] [address] Emergency Department Summary 10/21/23 MR#: [id number] Acct: [id number] Name: JARET BATES Rep #:[id number] : 1955 68 From: Kayli Granados DO PCP: Dr. Marshall eBar MD Status:ADM IN Location: [place] [address] HPI History of Present Illness Chief Complaint: [...] that hespeaks normally. He denies recent illness. [facility] Medical History (Updated 10/21/23 @ 20:[address] Sara Reaves MD) Agent orange exposure Alcohol use Ambulates with cane Arthritis Arthropathy of cervical facet joint Asthma Atherosclerotic heart disease of [place] coronary artery without angina pectoris Back pain [...] % (Auto) 69.6 Lymph % (Auto) 20.2 [place] % (Auto) 9.6 Eos % (Auto) 0.0 [...] Clarity Clear Urine pH 7.0 Ur Specific [place] 1.010 Urine Protein 30 H Urine Glucose [...] 17:34 EST Reading Location ID and State: [facility] / [place] , Service support , ADDENDUM: 10/21/23 1746 IMPRESSION: Chronic age related changes and atrophy. No acute abnormality or significant change. N.B. : The above Results were Read Back by Toribio Giraldo MD to Kayli Granados DO, and understanding confirmed on 10/21/2023 17:39:16 (ET). Electronically Signed: Toribio Giraldo MD at 17:34 EST Reading Location ID and State: [facility] / [place] , Service support , Head/Neck CTA 10/21/23 17:19 IMPRESSION: No acute abnormality. No large vessel occlusions. 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 Electronically Signed: Toribio Giraldo MD at 17:49 EST Reading Location ID and State: [facility] / [place] , Service support , ADDENDUM: 10/21/23 1758 [...] Altered mental status Disposition Disposition: Acute Care Hospital [facility] Discharge Date/Time: 10/21/23 20:11 What to do if you have Problems For any increased pain, shortness of breath, bleeding, nausea or vomiting, chestpain, or any unexpected problems, contact your Primary Care Provider. Call [facility] ([phone]) or report to the closest Emergency Room. Call 911 if necessary. 10/22/23 0008 <Electronically signed by Kayli Granados DO> Cosigner Signature (if applicable): CC: Dr. Marshall Bear MD ~ Signed [facility] Work Phone: 1(652) 613-845903-09-2024 History and physical note Author Sara Reaves [facility] October 21, 2023 8:19pm Note Date/Time October 21, 2023 7:25 pm [facility] Medical Records Department [address] [place] [address] H&P Exam - Hospitalist 10/21/231923 MR#: [id number] Acct: [id number] Name: PAULOJARETPAMELA QUESADA Rep #:[id number] : 1955 68 From: Sara Reaves MD PCP: Dr. Marshall Bear MD Status:ADM IN Location: [facility] [id number]- 1 HPI - General General Date of Admission: 10/21/23 Date of Service: 10/21/23 Chief Complaint: Expressive aphasia. HPI Narrative The patient is a 68 y/o M w/ PMHx: Asthma, CAD s/p CABG, BPH, RLS, Tobacco use, Chronic back pain with radidulopathy s/p prior surgical intervention, Diabetes mellitus type II with chronic neuropathy who presents to the [facility] ED on 10/21/2023 as a stroke [...] ED patient placed on maintenance IV fluids. [facility] Medical History (Updated 10/21/23 @ 20:[address] Sara Reaves MD) Agent orange exposure Alcohol use Ambulates with cane Arthritis Arthropathy of cervical facet joint Asthma Atherosclerotic heart disease of [place] coronary artery without angina pectoris Back pain [...] extremities, no focal deficits, strength, finger-nose and dclt-tt-vuyt appropriate, sensation intact, equivocal Babinski Psychiatric: Affect [...] % (Auto) 69.6, Lymph % (Auto) 20.2, [place]% (Auto) 9.6, Eos % (Auto) 0.0, Baso [...] Clarity Clear, Urine pH 7.0, Ur Specific [place] 1.010, Urine Protein 30 H, Urine Glucose [...] 17:34 EST Reading Location ID and State: [facility] / [place] , Service support , ADDENDUM: 10/21/23 1746 IMPRESSION: Chronic age related changes and atrophy. No acute abnormality or significant change. N.B. : The above Results were Read Back by Toribio Giraldo MD to Kayli Granados DO, and understanding confirmed on 10/21/2023 17:39:16 (ET). Electronically Signed: Toribio Giraldo MD at 17:34 EST Reading Location ID and State: [facility] / [place] , Service support , Head/Neck CTA 10/21/23 17:19 IMPRESSION: No acute abnormality. No large vessel occlusions. 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 Electronically Signed: Toribio Giraldo MD at 17:49 EST Reading Location ID and State: [facility] / [place] , Service support , ADDENDUM: 10/21/23 1758 IMPRESSION: No acute abnormality. No large vessel occlusions. 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 N.B. : The above Results were Read Back by Toribio Giraldo MD to Kayli Granados DO, and understanding confirmed on 10/21/2023 17:51:20 (ET). Electronically Signed: Toribio Giraldo MD at 17:49 EST Reading Location ID and State: [facility] / [place] , Service support , Chest X-Ray 10/21/23 18:05 IMPRESSION: No definite acute or significant abnormality seen. Electronically Signed: Toribio Giraldo MD at 19:00 EST Reading Location ID and State: [facility] / [place] , Service support , Assessment & Plan Assessment/Plan (1) Acute CVA (cerebrovascular accident): PLAN: Plan The patient is a 68 y/o M w/ PMHx: Asthma, CAD s/p CABG, BPH, RLS, Tobacco use, Chronic back pain with radidulopathy s/p prior surgical intervention, Diabetes mellitus type II with chronic neuropathy who presents to the [facility] ED on 10/21/2023 as a stroke [...] DVT prophylaxis: Lovenox. #14. CODE status: Patient HCPADRIENNE is his was present and living will is currently in place. Discussed CODE status at length including difference betweenFULL code, DNR-CCA and DNR-CC status. Following discussions about the differences in these status, requested Full Code status. Advanced Care Planning Face to Face Time: 16 minutes. Charges/Coding Visit Charges Inpatient E&M: 75152 Init Hosp L3 Procedures Hospitalists Procedures: 22138 Advncd Care Plan 30 Min 10/21/232018 <Electronically signed by Sara Reaves MD> Cosigner Signature (if applicable): CC: Dr. Sara Reaves MD; Dr. Marshall Bear MD~ Signed [facility] Work Phone: 1(671) 187-248802-28-2024 Miscellaneous Notes* Discharge Instr - Nursing - Velia Ravi RN - 10/11/2023 9:32 AM EST The patient received a copy of EGD discharge instructions that contain information for how to contact the physician who performed the procedure and when to seek medical care. [facility] Nurse Note* Velia Ravi RN - 10/11/2023 [...] phase II via cart. Left lateral position. Agufwwu1rwehcg, but responds to verbal stimuli. Color normal; skin warm and dry. Respirations wnl and unlabored. Abdomen soft and with + bowel sounds in quads X 4. Patient resting comfortably. Family at bedside. Dr. Marshall at bedside to review pr ocedure and recommendations. Velia Ravi RN documented in this encounterK[facility]-28-2024 History and physical note * Ben Marshall [...] 06/16/2017 Added automatically from request for surgery [id number] Impaired fasting glucose 07/15/2016 laparoscopic cholecystectomy 2022 [...] Ben Marshall III, MD documented in this [facility]-15-2024 NoteHNO ID: [id number] Author: JOSE JUAN PENA MD Service: ? Author Type: Physician Type: Progress Notes Filed: 09/28/2023 08:29 Note Text: Called by patient's PCP Dr. Zonia Batista for increasing epigastric symptoms. Patient had prior upper endoscopy before his cholecystectomy which did demonstrate gastritis. Will plan for urgent upper endoscopy.[facility] History of Present illness Narrative* Jose Juan Pena MD - 09/28/2023 8:24 AM EST Called by patient's PCP Dr. Zonia Batista for increasing epigastric symptoms. Patient had prior upper endoscopy before his cholecystectomy which did demonstrate gastritis. Will plan for urgent upper endoscopy. documented in [facility]-2024 Evaluation note* Diagnosis Onset Date Resolution Status [...] radiculopathy at L5 acute S/P laminectomy acute [facility] Work Phone: 1(577) 527-898001-01-2024 Evaluation note* Diagnosis Onset Date Resolution Status [...] diseases acute Abdominal pain acute Bilirubinuria acute [facility] Work Phone: 1(657) 429-773601-01-2024 Evaluation note* Diagnosis Onset Date Resolution Status [...] Altered mental status acute Expressive aphasia acute [facility] Work Phone: 1([phone]) 822-156701-01-2024 Evaluation note* Diagnosis Onset Date Resolution Status [...] status acute Discitis of lumbar region ac [place] Expressive aphasia acute S/P laminectomy acute [facility] Work Phone: 1(681) 315-253212-07-2023 Discharge summary Author Ventura Godoy [facility] July 20, 2023 2:13pm Note Date/Time July 20, 2023 2 :13pm [facility] Medical Records Department [address] [place] [address] Discharge Summary 07/20/23 1410 MR#: [id number] Acct: [id number] Name: JARET BATES Rep #:[id number] : 1955 68 From: Ventura Fournier PCP: Dr. Marshall Bear MD Status:ADM IN Location: MS3 [id number] Providers Date of Admission: 07/18/23 Primary Care [...] Bear MD; Dr. Ventura Godoy DO~ Signed [facility] Work Phone: [phone]) 182-469712-07-2023 Discharge summary Author Ventura Godoy [facility] July 20, 2023 4:00pm Note Date/Time July 20, 2023 2 :10pm [facility] Medical Records Department [address] [place] [address] Instructions for Home/Discharge Instructions 07/20/23 1408 MR#: [id number] Acct: [id number] Name: JARET BATES Rep #:[id number] : 1955 68 From: Ventura Fournier PCP: [...] DO; Dr. Dimas Clinton MD ~ Signed [facility] Work Phone: [phone] 909-140412-06-2023 Progress note Author Vipul De [facility] July 19, 2023 5:58pm Note Date/Time July 19, 2023 5 :58pm [facility] Medical Records Department [address] [place] [address] Progress Note - Hospitalist 07/19/23 1753 MR#: [id number] Acct: [id number] Name: JARET BATES Rep #:[id number] : 1955 68 From: Vipul Vazquez DO PCP: Dr. Marshall Bear MD Status:ADM IN Location: [place] [address] Reason for Visit Reason for Visit: Diagnoses [...] (Auto) 77.7 H, Lymph % (Auto) 13.6L, [place] % (Auto) 7.9, Eos % (Auto) 0.1, [...] 25 minutes Charges/Coding Visit Charges Inpatient E&M: 97287 Subs Hosp L1 07/19/23 6096 <Electronically signed by Vipul Vazquez DO> Cosigner Signature (if applicable): CC: ~ Signed [facility] Work Phone: 1(624) 410-898712-06-2023 Progress note Author Ventura Godoy [facility] July 19, 2023 1:09pm Note Date/Time July 19, 2023 1 :09pm [facility] Medical Records Department [address] [place] [address] Progress Note - Orthopedic 07/19/23 1308 MR#: [id number] Acct: [id number] Name: JARET BATES Rep #:[id number] : 1955 68 From: Ventura Fournier PCP: Dr. Marshall Bear MD Status:ADM IN Location: MS3 UK163-0 Subjective Subjective Jaret is doing well on [...] (Auto) 77.7 H, Lymph % (Auto) 13.6L, [place] % (Auto) 7.9, Eos % (Auto) 0.1, [...] Cosigner Signature (if applicable): CC: ~ Signed [facility] Work Phone: 1(750) 272-848212-05-2023 Progress note Author Dimas Clinton [facility] July 18, 2023 6:00pm Note Date/Time July 18, 2023 1 :29pm [facility] Medical Records Department [address] [place] [address] Progress Note - Hospitalist 07/18/23 1328 MR#: [id number] Acct: [id number] Name: JARET BATES Rep #:[id number] : 1955 68 From: iDmas cannon MD PCP: Dr. Marshall Bear MD Status:ADM IN Location: [facility] UU586-6 Subjective Subjective 68-year-old male presents to the [...] 98 Nasal Cannula 4 07/18/23 12:22 07/18/23 12:07/18/23 12:23 12:22 07/18/23 12:22 07/18/23 12:22 07/18/23 12:22 [...] DVT: SCDs Charges/Coding Visit Charges Inpatient E&M: 50855 Subs Hosp L2 07/18/23 1800 <Electronically signed by Dimas Clinton MD> Rubiigner Signature (if applicable): CC: ~ Signed [facility] Work Phone: 1(152) 996-156412-05-2023 Procedure [facility] 07-17-2023 History and physical note Author Ventura Godoy [facility] July 17, 2023 2:14pm Note Date/Time July 17, 2023 2 :14pm [facility] Medical Records Department [address] [place] [address] History & Physical Exam 07/17/23 1413 MR#: [id number] Acct: [id number] Name: JARET BATES Rep #:[id number] : 1955 68 From: Ventura Fournier PCP: Dr. Marshall Bear MD Status:[place] [facility] [place] [facility] [place] and Physical [id number] Acct: [id number] Name: JARET BATES Rep #: [id number] : 1955 Provider: Dr. Ventura Godoy DO Age/Sex: 68/M Location: [facility] Status: Signed Intake Vital Signs 12/20/2305:28 05/11/2317:57 [...] facet joint Asthma Atherosclerotic heart disease of [place] coronary artery without angina pectoris Back pain [...] Bear MD; Dr. Ventura Godoy DO~ Signed [facility] Work Phone: 1(974) 831-438910-02-2023 Procedure [facility] 05-02-2023 Discharge summary Author Vin Dawkins [facility] May 02, 2023 12:52pm Note Date/Time May 02, 2023 12:52pm [facility] Physical Therapy [facility] [address] [place] [address] / REHABILITATION SERVICES DISCHARGE SUMMARY MR#: [id number] Acct: [id number] Name: JARET BATES Rep #: [id number] : 1955 68 From: Vin Dawkins DPT, OCS, CSCS Referring Dr.: Dr. Ventura Godoy DO Status: REG RCR [...] appropriate by the physician. Thank you! Vin Dawkins, DPT, OCS, CSCS Balance/Gait/Functional tests Balance/Special Test Scores Functional Gait Assessment Score: 20 % Disability: 33.3400 CATSIB Score (Max score 120 seconds): 73 Oswestry Low Back Score: 20 <Electronically signed by Vin Dawkins DPT, OCS, CSCS> 05/02/23 1252 CC: Dr. Marshall Bear MD; Dr. Ventura Godoy, DO ~ EBG Signed [facility] Work Phone: 1(653) 388-845004-07-2023 NoteHNO ID: [id number] Author: Edilia Hunter PA-C Service: ? Author Type: Physician Warehouse Production Worker Type: Progress Notes Filed: 11/22/2022 4:57 PM Note Text: FOLLOW UP VISIT - CHOLECYSTECTOMY NAME: Jaret Bates [facility] NO.: [id number] DATE OF SERVICE: 11/18/2022 : 1955 REFERRING [...] instructed to follow-up with me as needed. [facility] Instructions* Patient Instructions* Edilia Hunter PA-C - 11/18/2022 10:01 AM EDT The following instructions are important for you related to your office visit today with the [facility] General Surgeons. INSTRUCTIONS FOLLOWING YOU [...] you should contact our office immediately @ [phone] and ask to be transferred to the General Surgery department. documented in this encounterK[facility]04-07-2023 History of Present illness Narrative* Edilia Hunter PA-C - 11/18/2022 9:44 AM EDT FOLLOW UP VISIT - CHOLECYSTECTOMY NAME: Jaret Bates [facility] NO.: [id number] DATE OF SERVICE: 11/18/2022 : 1955 REFERRING [...] needed. Edilia Hunter PA-C documented in this encounterKet[facility]04-07-2023 Nurse Note* Clara Lira RN - 11/18/2022 [...] 2022 Clara Lira RN documented in this encounterKettering [facility]04-03-2023 Miscellaneous Notes* Telephone Encounter - Carol Vega RN - 11/14/2022 4:33 PM EDT Patient was evaluated at [facility] ER, CT scan of the [...] at that hospital andis doing surgeries in [place] today. voiced understanding. Alethea # [phone] * Telephone Encounter - Carol Vega RN [...] of the pain. They use [facility] in [place]. 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 Pena, stating that he does not work at their facility. I apologized to Alethea, stating that I would reach out and see who can update that paperwork and correct that error. Carol Vega RN documented in this encounterKettering [facility]03-31-2023 NoteHNO ID: [id number] Author: Joni Crooks RN Service: Nursing Author Type: Registered Nurse Type: Nursing Progress Note Filed: 11/11/2022 12:59 PM Note Text: PT up to bathroom, ambulated with close supervision, tolerated well. 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 Copy made for Nitish Norris CNP and original sent to scanning. Araceli Davis LPN * Telephone Encounter - Araceli Davis LPN - 11/09/2022 9:30 AM EDT Called and spoke with Katerina at [facility], she will fax last office visit and cardiac records. Araceli Davis LPN * Telephone Encounter - Araceli Davis LPN - 11/09/2022 9:22 AM EDT Received labs from Dr. Bear's office. Copy made for Nitish Norris CNP and original sent to [employer] through [employer]. Araceli Davis LPN * Telephone Encounter - Araceli Davis LPN - 11/09/2022 8:54 AM EDT Received a call from [facility] stating Dr. Mckeon office has moved and new phone number is [phone]. I called Dr. Mckeon new office and spoke with Katrina. Requested labsespecially [...] Called and left message with Katerina at [facility] to return call. Callback number given. Araceli Davis LPN * Telephone Encounter - Nitish Norris APRN.DAMON - 11/09/2022 6:18 AM EDT Please request most recent labs, especially A1c from PCP's office. And cardiac records, last OV from [facility]. DOS 11/11/2022 documented in this encounterKettering [facility]03-24-2023 History and physical note * Nitish Norris APRN.RATE AND COST ANALYST - 11/04/2022 11:15 AM EDT HISTORY AND [...] yr, monovalent (PFIZER- BIONTECH - PURPLE TOP) 11/12/2020 Imm Admin: [...] fevers. Neurological: No history of TIA's, stroke, MACHINED PARTS METAL SPRAYER tumor, impaired sensorium, hemiplegia, paraplegia orquadraplegia. No neurological symptoms or problems. Respiratory: Positive for: asthma and COPD. Negative for: pneumonia within 6 weeks, tobacco use, URI < 2 weeks and obstructive sleep apnea. Cardiovascular: Positive for: anticoagulation therapy (ASA), CAD, hyperlipidemia (on rx) and open heart surgery Negative for: arrhythmia, atrial fibrillation, chest pain, CHF, congenital heart defect, DVT/PE, hypertension, recent IL, murmur/valvular heart disease, PVD and valve surgery. [...] for: joint pain. Skin: +rosacea, following [facility] PAST MEDICAL HISTORY Diagnosis Date Asthma CAD [...] 06/16/2017 Added automatically from request for surgery [id number] Impaired fasting glucose 07/15/2016 Myalgia and myositis, [...] A1C Date Value 04/09/2019 Test sent to [facility]. % 11/05/2018 Test sent to [facility]. % 06/28/2018 Test sent to [facility]. % 07/17/2017 Test sent to [facility]. % 06/23/2016 Test sent to [facility]. % 06/23/2016 6.1 No results found for this or any previous visit (from the past 8760 hour(s)). No results found for this or any previous visit (from the past 57088 hour(s)). Assessment Patient has the following medical conditions which may affect nereida-operative course: Other hyperlipidemia Assessment: c/w statin CAD (coronary artery disease) Assessment: CABG x3, 2011, following [facility], daily ASA, denies CP, palpitations [...] equal to 35 kg/m^2 STOP-Bang Score: 4 [id number] Score: Age: 65-74 Sex: male CHF history: No Hypertension history: Yes Stroke/TIA/thromboembolism history: No Vascular disease history: Yes Diabetes history: Yes [id number] Score: 4 ARISCAT Score: Age: 51-80 Preoperative [...] compliance. SIGNATURE: Nitish Norris APRN.CNP PATIENT NAME: Jarte Bates DATE: November 04, 2022 TIME: 11:15 AM PAGER/CONTACT #: documented in this encounterKettering Health [facility]03-24-2023 Instructions* Patient Instructions* Nitish Norris APRN.CNP - 11/04/2022 11:12 AM EDT PATIENT PREOPERATIVE INSTRUCTIONS No ref. provider found has scheduled you for your procedure at this surgery center: [facility]: [phone] -- [address] [place] [address]. Please read below carefully for your personalized [...] Procedures: - YOU MUST HAVE A RESPONSIBLE REVENUE STAMPER TAKE YOU HOME. A WIRE STITCHER OR DIGITAL CONTENT PRODUCER CANNOT BE MADE A RESPONSIBLE REVENUE STAMPER. - We recommend that a responsible person [...] Advance Directive, please fax a copy to [phone] or email to for it to be [...] day. Nitish Norris APRN.DAMON documented in this encounterKettering Health [facility]03-10-2023 NoteHNO ID: [id number] Author: Jose Juan Pena MD Service: ? [...] 67 year old male referred for endoscopy. aJret notes a history of colon polyp and [...] 06/16/2017 Added automatically from request for surgery [id number] Impaired fasting glucose 07/15/2016 Myalgia and myositis, [...] NEUROPLASTY AND/TRANSPOS MEDIAN NRV CARPAL TUNNE Right 2001 Carpal tunnel decomp right NEUROPLASTY AND/TRANSPOS MEDIAN NRV CARPAL TUNNE Right 11/2014 Carpal tunnel decomp RMVL LENS MATERIAL PHACOFRAGMENTATION ASPIR 1999, 2001 Cataract Extraction bilateral RPR 1ST INGUN HRNA AGE 5 YRS/> REDUCIBLE 2003 - left RPR 1ST INGUN HRNA AGE 5 YRS/> REDUCIBLE 2001 2 right RPR UMBILICAL HRNA 5 YRS/> REDUCIBLE 2 (more content not included)...[facility]03-10-2023 History of Present illness Narrative* Jose Juan [...] 06/16/2017 Added automatically from request for surgery [id number] Impaired fasting glucose 07/15/2016 Myalgia and myositis, [...] Procedure: LAPAROSCOPIC CHOLECYSTECTOMY WITH INTRAOPERATIVE CHOLEANGIOGRAM - 09030-533 Planned antibiotic: Ancef 2gm IVPB marketing operations associate to OR SCDs needed - Yes Warehouse Production Worker Needed - No Diagnoses: (K80.20) Calculus of gallbladder without cholecystitis without obstruction (primary encounter diagnosis) (R10.11) RUQ pain My findings have been communicated to via shared medical record. This note will be forwarded to No primary care provider on file.. Jose Juan Pena MD documented in this encounterKettering Health [facility]03-09-2023 Miscellaneous Notes* Telephone Encounter - Dayron Orozco LPN - 10/20/2022 9:40 AM EST Called and spoke to Linette CORONADO, CT scan dept. Pushed image per Dr Pena request. Dayron Orozco LPN documented in this encounterKettering Health [facility]02-24-2023 NoteHNO ID: [id number] Author: Edilia Hunter PA-C Service: ? Author Type: Physician Warehouse Production Worker Type: Progress Notes Filed: 10/13/2022 2:07 PM Note Text: FOLLOW UP VISIT - ENDOSCOPY NAME: Jaret Bates [facility] NO.: [id number] DATE OF SERVICE: 10/07/2022 : 1955 REFERRING [...] which included preparing to see the patient, sjzv-hj-fuus patient care, completing clinical documentation, obtaining and/or reviewing separately obtained history, counseling and educating the patient/family/caregiver, independently interpreting results (not separately reported), and communicating results to the patient/family/caregiver. [facility] Instructions* Patient Instructions* Edilia Hunter PA-C [...] to your office visit today with the [facility] General Surgeons. INSTRUCTIONS FOLLOWING A [...] you should contact our office immediately @ [phone] and ask to be transferred to the General Surgery department. documented in this encounterKettering Health [facility]02-24-2023 History of Present illness Narrative* Edilia Hunter PA-C - 10/07/2022 3:33 PM EST FOLLOW UP VISIT - ENDOSCOPY NAME: Jaret Bates [facility] NO.: [id number] DATE OF SERVICE: 10/07/2022 : 1955 REFERRING [...] which included preparing to see the patient, lfls-ou-hjym patient care, completing clinical documentation, obtaining and/or reviewing separately obtained history, counseling and educating the patient/family/caregiver, independently interpretin g results (not separately reported), and communicating results to the patient/family/caregiver. Edilia Hunter PA-C documented in this encounterKettering Health [facility]02-14-2023 Nurse Note* Clementina Burnette RN - 09/27/2022 [...] comfortably on left side. documented in this encounterKettering Health [facility]02-14-2023 History and physical note * Jose Juan [...] 06/16/2017 Added automatically from request for surgery [id number] Impaired fasting glucose 07/15/2016 Myalgia and myositis, [...] W/O BRSH SPEC 06/20/2017 Colonoscopy EGD W/O BRS SPECIMEN W/BX 07/06/10 gastritis EGD W/O MINERS' [...] entered by the nurse and reviewed by ne Nursing Notes: Mel Alonso LPN 08/09/2022 1:45 [...] offered a surgery/procedure at [facility]. I have counseled the patient regarding [...] which included preparing to see the patient, rwxa-zu-kjxj patient care, completing clinical documentation, obtaining and/or reviewing separately obtained history, performing a medically appropriate examination, and care coordination (not separ ately reported). Edilia Hunter PA-C * Jose Juan Pena MD - 09/27/2022 8:15 AM EST Images from the original note were not included. HISTORY AND PHYSICAL Jaret Ch Bates 1955 REFERRING PHYSICIAN: Edilia Hunter PA-C [...] 06/16/2017 Added automatically from request for surgery [id number] Impaired fasting glucose 07/15/2016 Myalgia and myositis, [...] entered by the nurse and reviewed by ne Nursing Notes: Mel Alonso LPN 08/09/2022 1:45 [...] offered a surgery/procedure at a [facility] facility. I have counseled the patient regarding [...] which included preparing to see the patient, [id number]-jy-usqx patient care, completing clinical documentation, obtaining and/or reviewing separately obtained history, performing a medically appropriate examination, and care coordination (not separ ately reported). Edilia Hunter PA-C documented in this encounterKettering Health [facility]02-03-2023 Miscellaneous Notes* Telephone Encounter - Fela Ambriz - 09/16/2022 10:46 AM EST EGD added to procedure Fela Ambriz Cut In Station Operator * Telephone Encounter - Aspen Sainz - 09/16/2022 9:35 AM EST Pt calling to inform that Dr. Bear had ordered EGD for pt. There is an order in [facility] from [facility]. Pt asking if that can be done the same day as the colonoscopy. Please contact patient to confirm date. Aspen Sainz documented in this encounterKettering Health [facility]02-03-2023 Miscellaneous Notes* Telephone Encounter - Jose Juan Pena MD - 09/16/2022 6:21 AM EST Called by patient's PCP Dr. Batista who also is having upper symptoms will add EGD and perform orosco biopsies. * Telephone Encounter - Fela Ambriz - 08/09/2022 1:32 PM EST 09/27/2022 COLON ASC documented in this encounterKettering Health [facility]12-27-2022 Nurse Note* Mel Alonso LPN - 08/09/2022 [...] 2016 Mel Alonso LPN documented in this encounterKettering Health [facility]12-27-2022 History of Present illness Narrative* Edilia Hunter PA-C - 08/09/2022 12:49 PM EST HISTORY AND PHYSICAL Jaret Bates 1955 [...] 06/16/2017 Added automatically from request for surgery [id number] Impaired fasting glucose 07/15/2016 Myalgia and myositis, [...] entered by the nurse and reviewed by ne Nursing Notes: Mel Alonso LPN 08/09/2022 1:45 [...] offered a surgery/procedure at a [facility] facility. I have counseled the patient regarding [...] which included preparing to see the patient, [id number]-dx-crhn patient care, completing clinical documentation, obtaining and/or reviewing separately obtained history, performing a medically appropriate examination, and care coordination (not separ ately reported). Edilia Hunter PA-C documented in this encounterKettering Health [facility]11-03-2017 History of Past illness Narrative* Problem Noted Date Resolved Date Hemorrhoids, internal 06/16/2017 01/15/2018 Overview: Added automatically from request for surgery [id number] Bright red rectal bleeding 06/16/201707/17 Overview: Added automatically from request for surgery [id number] History of colonic polyps 06/16/20172016 Overview: Added automatically from request for surgery [id number] Calculus of gallbladder with out cholecystitis without [...] Laboratory test 07/16/2012 11/04/2014 Overview: PSA done [facility] 07/06/2012 - 0.89 Pain in joint, shoulder region 04/06/2012 0 04/12/2016 GERD (gastroesophageal reflux disease) 0 07/17/2017 Diabetes mellitus 06/25/2010 09/04/2012 Headache(784.0) 10/30/2007 01/15/2018 Dysthymic disorder 07/17/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) Other malaise and fatigue 2015 Other specified disease of hair and hair follicl es 11/04/2014 documented as of this encounter (statuses as of 08/18/2022) [facility] History of Past illness Narrative* Problem Noted Date Resolved Date Hemorrhoids, internal 06/16/2017 01/15/2018 Overview: Added automatically from request for surgery [id number] Bright red rectal bleeding 06/16/201707/17 Overview: Added automatically from request for surgery [id number] History of colonic polyps 06/16/20172016 Overview: Added automatically from request for surgery [id number] Calculus of gallbladder with out cholecystitis without [...] Laboratory test 07/16/2012 11/04/2014 Overview: PSA done [facility] 07/06/2012 - 0.89 Pain in joint, shoulder region 04/06/2012 0 04/12/2016 GERD (gastroesophageal reflux disease) 0 07/17/2017 Diabetes mellitus 06/25/2010 09/04/2012 Headache(784.0) 10/30/2007 01/15/2018 Dysthymic disorder 07/17/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) Other malaise and fatigue 2015 Other specified disease of hair and hair follicl es 11/04/2014 documented as of this encounter (statuses as of 09/16/2022) [facility] of Past illness Narrative* Problem Noted Date Resolved Date Hemorrhoids, internal 06/16/2017 01/15/2018 Overview: Added automatically from request for surgery [id number] Bright red rectal bleeding 06/16/201707/17 Overview: Added automatically from request for surgery [id number] History of colonic polyps 06/16/20172016 Overview: Added automatically from request for surgery [id number] Calculus of gallbladder with out cholecystitis without [...] Laboratory test 07/16/2012 11/04/2014 Overview: PSA done [facility] 07/06/2012 - 0.89 Pain in joint, shoulder region 04/06/2012 0 04/12/2016 GERD (gastroesophageal reflux disease) 0 07/17/2017 Diabetes mellitus 06/25/2010 09/04/2012 Headache(784.0) 10/30/2007 01/15/2018 Dysthymic disorder 07/17/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) Other malaise and fatigue 2015 Other specified disease of hair and hair follicl es 11/04/2014 documented as of this encounter (statuses as of 09/16/2022) [facility] of Past illness Narrative* Problem Noted Date Resolved Date Hemorrhoids, internal 06/16/2017 01/15/2018 Overview: Added automatically from request for surgery [id number] Bright red rectal bleeding 06/16/201707/17 Overview: Added automatically from request for surgery [id number] History of colonic polyps 06/16/20172016 Overview: Added automatically from request for surgery [id number] Calculus of gallbladder with out cholecystitis without [...] Laboratory test 07/16/2012 11/04/2014 Overview: PSA done [facility] 07/06/2012 - 0.89 Pain in joint, shoulder region 04/06/2012 0 04/12/2016 GERD (gastroesophageal reflux disease) 0 07/17/2017 Diabetes mellitus 06/25/2010 09/04/2012 Headache(784.0) 10/30/2007 01/15/2018 Dysthymic disorder 07/17/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) Other malaise and fatigue 2015 Other specified disease of hair and hair follicl es 11/04/2014 documented as of this encounter (statuses as of 10/13/2022) [facility] of [facility] illness Narrative* Problem Noted Date Resolved Date Hemorrhoids, internal 06/16/2017 01/15/2018 Overview: Added automatically from request for surgery [id number] Bright red rectal bleeding 06/16/201707/17 Overview: Added automatically from request for surgery [id number] History of colonic polyps 06/16/20172016 Overview: Added automatically from request for surgery [id number] Calculus of gallbladder with out cholecystitis without [...] Laboratory test 07/16/2012 11/04/2014 Overview: PSA done [facility] 07/06/2012 - 0.89 Pain in joint, shoulder region 04/06/2012 0 04/12/2016 GERD (gastroesophageal reflux disease) 0 07/17/2017 Diabetes mellitus 06/25/2010 09/04/2012 Headache(784.0) 10/30/2007 01/15/2018 Dysthymic disorder 07/17/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) Other malaise and fatigue 2015 Other specified disease of hair and hair follicl es 11/04/2014 documented as of this encounter (statuses as of 10/20/2022) [facility] Narrative* Problem Noted Date Resolved Date Hemorrhoids, internal 06/16/2017 01/15/2018 Overview: Added automatically from request for surgery [id number] Bright red rectal bleeding 06/16/201707/17 Overview: Added automatically from request for surgery [id number] History of colonic polyps 06/16/20172016 Overview: Added automatically from request for surgery [id number] Calculus of gallbladder with out cholecystitis without [...] Laboratory test 07/16/2012 11/04/2014 Overview: PSA done [facility] 07/06/2012 - 0.89 Pain in joint, shoulder region 04/06/2012 0 04/12/2016 GERD (gastroesophageal reflux disease) 0 07/17/2017 Diabetes mellitus 06/25/2010 09/04/2012 Headache(784.0) 10/30/2007 01/15/2018 Dysthymic disorder 07/17/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) Other malaise and fatigue 2015 Other specified disease of hair and hair follicl es 11/04/2014 documented as of this encounter (statuses as of 10/26/2022) [facility] Narrative* Problem Noted Date Resolved Date Hemorrhoids, internal 06/16/2017 01/15/2018 Overview: Added automatically from request for surgery [id number] Bright red rectal bleeding 06/16/201707/17 Overview: Added automatically from request for surgery [id number] History of colonic polyps 06/16/20172016 Overview: Added automatically from request for surgery [id number] Calculus of gallbladder with out cholecystitis without [...] Laboratory test 07/16/2012 11/04/2014 Overview: PSA done [facility] 07/06/2012 - 0.89 Pain in joint, shoulder region 04/06/2012 0 04/12/2016 GERD (gastroesophageal reflux disease) 0 07/17/2017 Diabetes mellitus 06/25/2010 09/04/2012 Headache(784.0) 10/30/2007 01/15/2018 Dysthymic disorder 07/17/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) Other malaise and fatigue 2015 Other specified disease of hair and hair follicl es 11/04/2014 documented as of this encounter (statuses as of 11/09/2022) [facility] Narrative* Problem Noted Date Resolved Date Hemorrhoids, internal 06/16/2017 01/15/2018 Overview: Added automatically from request for surgery [id number] Bright red rectal bleeding 06/16/201707/17 Overview: Added automatically from request for surgery [id number] History of colonic polyps 06/16/20172016 Overview: Added automatically from request for surgery [id number] Calculus of gallbladder with out cholecystitis without [...] Laboratory test 07/16/2012 11/04/2014 Overview: PSA done [facility] 07/06/2012 - 0.89 Pain in joint, shoulder region 04/06/2012 0 04/12/2016 GERD (gastroesophageal reflux disease) 0 07/17/2017 Diabetes mellitus 06/25/2010 09/04/2012 Headache(784.0) 10/30/2007 01/15/2018 Dysthymic disorder 07/17/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) Other malaise and fatigue 2015 Other specified disease of hair and hair follicl es 11/04/2014 documented as of this encounter (statuses as of 11/09/2022) [facility] History of Past illness Narrative* Problem Noted Date Resolved Date Hemorrhoids, internal 06/16/2017 01/15/2018 Overview: Added automatically from request for surgery [id number] Bright red rectal bleeding 06/16/201707/17 Overview: Added automatically from request for surgery [id number] History of colonic polyps 06/16/20172016 Overview: Added automatically from request for surgery [id number] Calculus of gallbladder with out cholecystitis without [...] Laboratory test 07/16/2012 11/04/2014 Overview: PSA done [facility] 07/06/2012 - 0.89 Pain in joint, shoulder region 04/06/2012 0 04/12/2016 GERD (gastroesophageal reflux disease) 0 07/17/2017 Diabetes mellitus 06/25/2010 09/04/2012 Headache(784.0) 10/30/2007 01/15/2018 Dysthymic disorder 07/17/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) Other malaise and fatigue 2015 Other specified disease of hair and hair follicl es 11/04/2014 documented as of this encounter (statuses as of 11/18/2022) [facility] History of Past illness Narrative* Problem Noted Date Resolved Date Hemorrhoids, internal 06/16/2017 01/15/2018 Overview: Added automatically from request for surgery [id number] Bright red rectal bleeding 06/16/201707/17 Overview: Added automatically from request for surgery [id number] History of colonic polyps 06/16/20172016 Overview: Added automatically from request for surgery [id number] Calculus of gallbladder with out cholecystitis without [...] Laboratory test 07/16/2012 11/04/2014 Overview: PSA done [facility] 07/06/2012 - 0.89 Pain in joint, shoulder region 04/06/2012 0 04/12/2016 GERD (gastroesophageal reflux disease) 0 07/17/2017 Diabetes mellitus 06/25/2010 09/04/2012 Headache(784.0) 10/30/2007 01/15/2018 Dysthymic disorder 07/17/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) Other malaise and fatigue 2015 Other specified disease of hair and hair follicl es 11/04/2014 documented as of this encounter (statuses as of 11/23/2022) [facility] History of Past illness Narrative* Problem Noted Date Diagnosed Date Resolved Date Hemorrhoids, internal 06/16/2017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: Added automatically from request for surgery [id number] Bright red rectal bleeding 06/16/2017 1 09/17/2016 Overview: Added automatically from request for surgery [id number] History of colonic polyps 06/16/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: Added automatically from request for surgery [id number] Calculus of gallbladder with out cholecystitis without [...] Laboratory test 07/16/2012 11/04/2014 Overview: PSA done [facility] 07/06/2012 - 0.89 Pain in joint, shoulder region 04/06/2012 04/12/2016 GERD (gastroesophageal reflux disease) 06/28/2010 07/17/2017 Diabetes mellitus 06/25/2010 09/04/2012 Headache(784.0) 10/30/2007 01/15/2018 Dysthymic disorder 7 Overview: Depression (non-psychotic) Other malaise and fatigue Other specified disease of h air and hair follicles 11/04/2014 documented as of this encounter (statuses as of 04/19/2023) [facility] History of Past illness Narrative* Problem Noted Date Diagnosed Date Resolved Date Hemorrhoids, internal 06/16/2017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: Added automatically from request for surgery [id number] Bright red rectal bleeding 06/16/2017 1 09/17/2016 Overview: Added automatically from request for surgery [id number] History of colonic polyps 06/16/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: Added automatically from request for surgery [id number] Calculus of gallbladder with out cholecystitis without [...] Laboratory test 07/16/2012 11/04/2014 Overview: PSA done [facility] 07/06/2012 - 0.89 Pain in joint, shoulder region 04/06/2012 04/12/2016 GERD (gastroesophageal reflux disease) 06/28/2010 07/17/2017 Diabetes mellitus 06/25/2010 09/04/2012 Headache(784.0) 10/30/2007 01/15/2018 Dysthymic disorder 7 Overview: Depression (non-psychotic) Other malaise and fatigue Other specified disease of h air and hair follicles 11/04/2014 documented as of this encounter (statuses as of 06/18/2023) [facility] History of Past illness Narrative* Problem Noted Date Diagnosed Date Resolved Date Hemorrhoids, internal 06/16/2017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: Added automatically from request for surgery [id number] Bright red rectal bleeding 06/16/2017 1 09/17/2016 Overview: Added automatically from request for surgery [id number] History of colonic polyps 06/16/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: Added automatically from request for surgery [id number] Calculus of gallbladder with out cholecystitis without [...] Laboratory test 07/16/2012 11/04/2014 Overview: PSA done [facility] 07/06/2012 - 0.89 Pain in joint, shoulder region 04/06/2012 04/12/2016 GERD (gastroesophageal reflux disease) 06/28/2010 07/17/2017 Diabetes mellitus 06/25/2010 09/04/2012 Headache(784.0) 10/30/2007 01/15/2018 Dysthymic disorder 7 Overview: Depression (non-psychotic) Other malaise and fatigue Other specified disease of h air and hair follicles 11/04/2014 documented as of this encounter (statuses as of 09/28/2023) [facility] History of Past illness Narrative* Problem Noted Date Diagnosed Date Resolved Date Hemorrhoids, internal 06/16/2017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: Added automatically from request for surgery [id number] Bright red rectal bleeding 06/16/2017 1 09/17/2016 Overview: Added automatically from request for surgery [id number] History of colonic polyps 06/16/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: Added automatically from request for surgery [id number] Calculus of gallbladder with out cholecystitis without [...] Laboratory test 07/16/2012 11/04/2014 Overview: PSA done [facility] 07/06/2012 - 0.89 Pain in joint, shoulder region 04/06/2012 04/12/2016 GERD (gastroesophageal reflux disease) 06/28/2010 07/17/2017 Diabetes mellitus 06/25/2010 09/04/2012 Headache(784.0) 10/30/2007 01/15/2018 Dysthymic disorder 7 Overview: Depression (non-psychotic) Other malaise and fatigue Other specified disease of h air and hair follicles 11/04/2014 documented as of this encounter (statuses as of 10/12/2023) [facility] Evaluation note* Diagnosis Onset Date Resolution Status Atherosclerotic heart diseas e of [place] coronary artery without angina pectoris chronic Hyperlipemia chronic Nonrheumatic aortic (valve) stenosis with insufficiency chronic H/O coronary artery bypass surgery September 14, 2011 resolved BPH w urinary obs/LUTS acute Difficulty balancing acute Essential (primary) hypertension acute Fibromyalgia acute Fusion of spine, cervical region acute Atherosclerotic heart diseas e of [place] coronary artery without angina pectoris chronic Hyperlipemia chronic Nonrheumatic aortic (valve) stenosis with insufficiency chronic Type 2 diabetes mellitus chr onic H/O coronary artery bypass surgery September 14, 2011 resolved [facility] Work Phone: 1(650) 482-987002-01-2012 Evaluation note* Diagnosis Onset Date Resolution Status Hyperlipemia chronic Nonrheumatic aortic (valve) stenosis with insufficiency chronic H/O coronary artery bypass surgery September 14, 2011 resolved Acute left otitis media acut e Otitis externa acute Cephalgia acute Stiffness of cervical spine acute [facility] Work Phone: Chief complaint+Reason for visit Narrative* Chief Complaint [facility] COVID-19/COUGH OVERDUE FOR FU 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 MAILED EORDER Reason for Visit Atherosclerotic hear t disease of [place] coronary artery without angina pectoris Hyperlipemia Nonrheumatic aortic (valve) stenosis with insufficiency H/O coronary artery bypass surgery BPH w urinary obs/LUTS Difficulty balancing Essential (primary) hypertension Fibromyalgia Fusion of spine, cervical region Atherosclerotic heart disease of [place] coronary artery without angina pectoris Hyperlipemia Nonrheumatic aortic (valve) stenosis with insufficiency Type 2 diabetes mellitus H/O coronary artery bypass surgery [facility] Work Phone: Consult note Author Genie Chance [facility] October 26, 2023 3:50pm Note Date/Time October 26, 2023 3:5 1pm [facility] Medical Records Department [address] [place] [address] Counseling Note - Pharmacy 10/26/23 1550 MR#: [id number] Acct: [id number] Name: JARET BATES Rep #:[id number] : 1955 68 From: Genie Chance PCP: Dr. [place] Bear MD Status:ADM IN Location: [place] [address] Pharmacy MD Med Reconciliation Pharmacy Service has performed discharge [...] Q12H 38 days #76 ea 10/26/23 10/26/23 3070 <Electronically signed by Genie Chance > Date _ Genie Chance Cosigner Signature (if applicable): Date CC: ~ Signed [facility] Work Phone: Consult note Author Drea Duarte [facility] December 12, 2023 12:46pm Note Date/Time December 12, 2023 12: 46pm [facility] Medical Records Department [address] [place] [address] Counseling Note - Pharmacy 12/12/23 1246 MR#: [id number] Acct: [id number] Name: JARET BATES Rep #:[id number] : 1955 68 From: Drea Duarte PCP: Dr. [place] Bear MD Status:ADM IN Y Location: [place] HD910-3 Pharmacy MD Med Reconciliation Pharmacy Service has performed discharge [...] signed by Drea Duarte> Date _ Drea Conti Signature (if applicable): Date CC: ~ Signed [facility] Work Phone: Discharge summary Author Ochoa Figueroa [facility] December 12, 2023 12:14pm Note Date/Time December 12, 2023 11: 58am [facility] Medical Records Department [address] [place] [address] Instructions for Home/Discharge Instructions 12/12/23 1157 MR#: [id number] Acct: [id number] Name: JARET BATES Rep #:[id number] : 1955 68 From: Ochoa Mcfarlane PCP: Dr. [place] Bear MD Status:ADM IN Discharge Instructions Diet [...] is on oxycodone. Both medications are available [id number]-[id number] Discharge Orders/Prescriptions Prescriptions: New metformin 500 mg [...] cbc, ESR, and vanc trough; fax to [phone]. Routine picc care per protocol. metformin 500 [...] MD; Dr. Tarik Wilkinson MD ~ Signed [facility] Work Phone: [facility]charge summary [facility] 12, 2023 12:19pm Note Date/Time December 12, 2023 12: 18pm [facility] Medical Records Department [address] [place] [address] Discharge Summary 12/12/23 1214 MR#: [id number] Acct: [id number] Name: JARET BATES Rep #:[id number] : 1955 68 From: Ochoa Mcfarlane PCP: Dr. [place] Bear MD Status:ADM IN Location: [place] [address] Providers Date of Admission: 12/10/23 Date of [...] Patient is a 68-year-old male who presented [facility] ED on 12/10/2023 with recurrent low back pain. 1. Recurrent low back pain, recent history of L4-5 laminectomy complicated by discitis/osteomyelitis, debility ? Admit under inpatient status to [facility]. MRI lumbar spine with and without [...] Signed: Tonny Rouse MD at 18:39 EDT , D/C Instructions Discharge Diet: No restrictions [...] is on oxycodone. Both medications are available [id number] Discharge Orders/Prescriptions Prescriptions: New metformin 500 mg [...] cbc, ESR, and vanc trough; fax to [phone]. Routine picc care per protocol. metformin 500 [...] Self Care Charges/Coding Visit Charges Inpatient E&M: 53593 Disch Hosp >30min 12/12/23 1219 <Electronically signed by Ochoa Figueroa MD> Cosigner Signature (if applicable): CC: Dr. [place] Bear MD; Dr. Ochoa Figueroa MD~ Signed [facility] Work Phone: Evaluation note* Diagnosis Onset Date Resolution Status Mechanical pain of right knee acute Right knee DJD acute Tear of medial meniscus of right knee acute [facility] Work Phone: Evaluation note* Diagnosis Onset Date Resolution Status Mechanical pain of right knee acute Right knee DJD acute Tear of medial meniscus of right knee acute Orthopedic aftercare acute Orthopedic aftercare acute COVID-19 acute COVID-19 acute [facility] Work Phone: Evaluation note* Diagnosis Onset Date [...] artery bypass surgery September 14, 2011 resolved [facility] Work Phone: Evaluation note* Diagnosis Onset Date Resolution Status Orthopedic aftercare acute Orthopedic aftercare acute COVID-19 acute COVID-19 acute Orthopedic aftercare acute Right knee pain noneactive BPH w urinary obs/LUTS acute Fatigue acute Hyperlipemia chronic Nonrheumatic aortic (valve) stenosis with insufficiency chronic Type 2 diabetes mellitus [facility] H/O coronary artery bypass surgery September 14, 2011 [facility] Work Phone: Evaluation note* Diagnosis Encounter for screening for malignant neoplasm of colon- Primary Special screening for malignant neoplasms, colon Personal history of colonic polyps [facility] Diagnosis Onset Date Resolution Status 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 Sinusitis noneactive Acute upper abdominal pain a cute Essential (primary) hypertension acute Atherosclerotic heart diseas e of [place] coronary artery without angina pectoris chronic Hyperlipemia chronic Type 2 diabetes mellitus [facility] Work Phone: Evaluation note* Diagnosis History of colonic polyps- Primary Personal history of colonic polyps Epigastric pain Abdominal pain, epigastric [facility]* Diagnosis Diverticulosis- Primary Diverticulosis of colon (without mention of hemorrhage) History of colonic polyps Personal history of colonic polyps Gastritis and duodenitis Unspecified gastritis and gastroduodenitis without mention of hemorrhage [facility] Calculus of gallbladder without cholecystitis without obstruction- Primary Calculus of gallbladder without mention of cholecystitis or obstruction RUQ pain Abdominal pain, right upper quadrant [facility]* Diagnosis Pre-operative examination- Primary Preoperative examination, unspecified Other hyperlipidemia Coronary artery disease involving [place] coronary artery of [place] heart without angina 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 [facility] Diagnosis Onset Date Resolution Status Right knee DJD acute Sinusitis noneactive Acute upper abdominal pain a cute Essential (primary) hypertension acute Atherosclerotic heart diseas e of [place] coronary artery without angina pectoris chronic Hyperlipemia chronic Type 2 diabetes mellitus chr onic Acute upper abdominal pain a cute Essential (primary) hypertension acute Otitis externa acute Hyperlipemia chronic Type 2 diabetes mellitus chr onic Bilateral primary osteoarthritis of knee acute [facility] Work Phone: Evaluation note* Diagnosis Calculus of gallbladder with chronic cholecystitis without obstruction- Primary Calculus of gallbladder with other cholecystitis, without mention of obstruction Back spasm Other symptoms referable to back [facility] Diagnosis Onset Date Resolution Status Cephalgia acute Stiffness of cervical spine acute Neck pain acute Neck pain acute Tension headache acute [facility] Work Phone: Evaluation note* Diagnosis Onset Date Resolution Status Cephalgia acute Stiffness of cervical spine acute Neck pain acute Neck pain acute Tension headache acute Acute lumbar radiculopathy a cute Bilateral primary osteoarthritis of knee acute [facility] Work Phone: Evaluation note* Diagnosis Onset Date Resolution Status Cephalgia acute Stiffness of cervical spine acute Neck pain acute Neck pain acute Tension headache acute Bilateral primary osteoarthritis of knee acute Urinary frequency acute [facility] Work Phone: Evaluation note* Diagnosis Gastroesophageal reflux disease with esophagitis, unspecified whether hemorrhage- Primary Constipation, unspecified constipation type History of colonic polyps Personal history of colonic polyps Epigastric pain Abdominal pain, epigastric [facility] Diagnosis Onset Date Resolution Status Neck pain acute Neck pain acute Tension headache acute Bilateral primary osteoarthritis of knee acute Urinary frequency acute Herniated nucleus pulposus, L4-5 left acute Herniated nucleus pulposus, L4-5 left acute Herniated nucleus pulposus, L4-5 left acute High cholesterol acute Status post discectomy for herniated nucleus pulposus acute [facility] Work Phone: Evaluation note* Diagnosis Onset Date Resolution Status Neck pain acute Tension headache acute Bilateral primary osteoarthritis of knee acute Urinary frequency acute Herniated nucleus pulposus, L4-5 left resolved Herniated nucleus pulposus, L4-5 left resolved High cholesterol acute Herniated nucleus pulposus, L4-5 left resolved Status post discectomy for herniated nucleus pulposus resolved S/P laminectomy acute S/P laminectomy acute [facility] Work Phone: Evaluation note* Diagnosis Epigastric pain- Primary Abdominal pain, epigastric [facility]* Diagnosis Gastroesophageal reflux disease with esophagitis and hemorrhage- Primary Epigastric pain Abdominal pain, epigastric [facility]* Diagnosis Onset Date Resolution Status Herniated nucleus pulposus, L4-5 left resolved Status post discectomy for herniated nucleus pulposus resolved Sinus infection resolved Abdominal pain resolved Bilirubinuria resolved Contact with or exposure to other viral diseases resolved Abdominal pain resolved Bilirubinuria resolved Discitis of lumbar region ac [place] Altered mental status resolv ed Expressive aphasia resolved [facility] Work Phone: Evaluation note* Diagnosis Onset Date [...] Bilirubinuria resolved Discitis of lumbar region ac [place] Altered mental status resolv ed Expressive aphasia resolved 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 acute Discitis of lumbar region ac [place] Lumbosacral radiculopathy at L5 acute [facility] Work Phone: Evaluation note* Diagnosis Onset Date Resolution Status Essential (primary) hypertension acute Hyperlipemia acute Type 2 diabetes mellitus acu te Sinus infection resolved Lumbosacral radiculopathy at L5 acute Lumbosacral radiculopathy at L5 acute Abdominal pain resolved Bilirubinuria resolved Contact with or exposure to other viral diseases resolved Abdominal pain resolved Bilirubinuria resolved Discitis of lumbar region ac [place] Altered mental status resolv ed Expressive aphasia resolved 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 acute Discitis of lumbar region [place] Lumbosacral radiculopathy at L5 acute Acute lumbar radiculopathy a cute JUNI (acute kidney injury) ac [place] Debility acute History of discitis acute History of osteomyelitis acu te Recurrent low back pain acut e Renal insufficiency acute [facility] Work Phone: Hospital Discharge instructions Additional Instructions [...] your primary care physician the next billable appointment.[facility] Work Phone: Hospital Discharge instructions Additional Instructions Follow-up with Dr. Bear in 1 week. Keep appointment for EGD on 10/11/2023. You may have loose stool for the next 24 hours after the oral contrast for your CAT scan. Follow bland diet until feeling better. Reglan every 8 hours for nausea.[facility] Work Phone: Reason for referral (narrative)* Outpatient Procedure (Routine) - Pending Review Specialty Diagnoses / Procedures Referred By Jeffrey jacob Referred To Contact [facility] Diagnoses Epigastric pain Procedures EGD DIAGNOSTIC ESOPHAGOGASTRODUODENOSC OPY TRANSORAL DIAGNOSTIC Jose Juan Pena MD [address] [place] [address] [facility] [address] [place] [address] Referral ID Status Reason Start Date Expiration Date Visits Requested Visits Authorized [id number] Pending Review Auto-Generat ed Referral 09/16/2022 09/16/2023 1 1 * Outpatient Procedure (Routine) - Authorized Specialty Diagnoses / Procedures Referred By Jeffrey jacob Referred To Contact [facility] Diagnoses History of colonic polyps Procedures COLONOSCOPY SCREENING COLONOSCOPY FLX DX W/COLLJ SPEC WHEN PFRMD Edilia Hunter PA-C [address] [address] [facility] [address] [place] [address] Referral ID Status Reason Start Date Expiration Date Visits Requested Visits Authorized [id number] Authorized Auto-Generat ed Referral 2 08/09/2023 1 1 [facility] for referral (narrative)* Outpatient Procedure (Routine) - Closed Specialty Diagnoses / Procedures Referred By Jeffrey jacob Referred To Contact [facility] Diagnoses Epigastric pain Procedures EGD DIAGNOSTIC ESOPHAGOGASTRODUODENOSC OPY TRANSORAL DIAGNOSTIC Jose Juan Pena MD [address] [facility] [place] [address] [address] Referral ID Status Reason Start Date Expiration Date V isits Requested Visits Authorized [id number] Closed Auto-Generate d Referral 09/16/2022 09/16/2023 1 1 * Outpatient Procedure (Routine) - Closed Specialty Diagnoses / Procedures Referred By Jeffrey jacob Referred To Contact [facility] Diagnoses History of colonic polyps Procedures COLONOSCOPY SCREENING COLONOSCOPY FLX DX W/COLLJ SPEC WHEN PFRMD Edilia Hunter PA-C [address] [facility] [place] [address] [address] Referral ID Status Reason Start Date Expiration Date V isits Requested Visits Authorized [id number] Closed Auto-Generate d Referral 08/09/2022 08/09/2023 1 1 [facility] for referral (narrative)* Outpatient Procedure (Routine) - Authorized Specialty Diagnoses / Procedures Referred By Jeffrey jacob Referred To Contact [facility] Diagnoses Epigastric pain Procedures EGD DIAGNOSTIC ESOPHAGOGASTRODUODENOS COPY TRANSORAL DIAGNOSTIC Jose Juan Pena MD [address] [address] Referral ID Status Reason Start Date Expiration Date Visits Requested Visits Authorized [id number] Authorized Auto-Generat ed Referral 09/28/2023 09/28/2024 1 1 [facility] for referral (narrative)* Outpatient Procedure (Routine) - Closed Specialty Diagnoses / Procedures Referred By Jeffrey jacob Referred To Contact [facility] Diagnoses Epigastric pain Procedures EGD DIAGNOSTIC ESOPHAGOGASTRODUODENOS COPY TRANSORAL DIAGNOSTIC Jose Juan Pena MD [address] [address] Referral ID Status Reason Start Date Expiration Date V isits Requested Visits Authorized [id number] Closed Auto-Generate d Referral 09/28/2023 09/28/2024 1 1 [facility] for referral (narrative)No reason for referral [facility] N[facility]* Outpatient Procedure (Routine) - Closed Specialty Diagnoses / Procedures Referred By Jeffrey jacob Referred To Contact [facility] DISEASE [facility] Diagnoses Epigastric pain Procedures EGD DIAGNOSTIC ESOPHAGOGASTRODUODENOSC OPY TRANSORAL DIAGNOSTIC Jose Juan Pena MD [address] [place] [address] [address] Referral ID Status Reason Start Date Expiration Date V isits Requested Visits Authorized [id number] Closed Auto-Generate d Referral 09/16/2022 09/16/2023 1 1 [facility] for visit Narrative* Outpatient Procedure (Routine) - Closed Specialty Diagnoses / Procedures Referred By Jeffrey jacob Referred To Contact [facility] Diagnoses Epigastric pain Procedures EGD DIAGNOSTIC ESOPHAGOGASTRODUODENOS COPY TRANSORAL DIAGNOSTIC Jose Juan Pena MD [address] [address] Referral ID Status Reason Start Date Expiration Date V isits Requested Visits Authorized [id number] Closed Auto-Generate d Referral 09/28/2023 09/28/2024 1 1 [facility] Summary Purpose Family History No Family History [...] Will No September 03 1:42pm Power of Warehouse Production Worker No September 03, 2020 1:42pm Advance Directive Response Recorded Date/ Time Advance Directives No April 3:20pm Living Will No February 23, 2022 9:29am Power of Warehouse Production Worker No February 23 9:29am Advance Directive Response Recorded Date/ Time Advance Directives No April 2:20pm Living Will No February 23, 2022 8:29am Power of Warehouse Production Worker No February 23 8:29am Advance Directive Response Recorded Date/ Time Advance Directives No September 09, 2022 8:50am Living Will No September 12 10:45am Power of Warehouse Production Worker No September 12, 2022 10:45am Advance Directive Response Recorded Date/ Time Advance Directives No September 09, 2022 9:50am Living Will No November 14, 2022 11:23am Power of Warehouse Production Worker No November 14 11:23am Advance Directive Response Recorded Date/ Time Name of Medical Power of Warehouse Production Worker May 10, 2023 3:59pm Name of Medical Power of Warehouse Production Worker May 11, 2023 6:00pm Advance Directives No September 09, 2022 9:50am Living Will Yes May 11, 2023 6:00pm Power of Warehouse Production Worker Yes April 6:00pm Advance Directive Response Recorded Date/ Time Name of Medical Power of Warehouse Production Worker May 10, 2023 2:59pm Name of Medical Power of Warehouse Production Worker May 11, 2023 5:00pm Name of Medical Power of Warehouse Production Worker Alethea - July 18, 2023 12:22pm Advance Directives No September 09, 2022 8:50am Living Will Yes July 18 12:22pm Power of Warehouse Production Worker Yes July 18, 2023 12:22pm Advance Directive Response Recorded Date/ Time Name of Medical Power of Warehouse Production Worker May 10, 2023 2:59pm Name of Medical Power of Warehouse Production Worker May 11, 2023 5:00pm Name of Medical Power of Warehouse Production Worker Alethea - July 18, 2023 12:22pm Advance Directives No September 09, 2022 8:50am Living Will No August 04 023 6:01pm Power of Warehouse Production Worker No August 04, 2023 6:01pm Advance Directive Response Recorded Date/ Time Name of Medical Power of Warehouse Production Worker May 10, 2023 2:59pm Name of Medical Power of Warehouse Production Worker May 11, 2023 5:00pm Name of Medical Power of Warehouse Production Worker Alethea - July 18, 2023 12:22pm Advance Directives No September 09, 2022 8:50am Living Will No August 14 3:35pm Power of Warehouse Production Worker No August 14 2 024 3:35pm Advance Directive Response Recorded Date/ Time Name of Medical Power of Warehouse Production Worker Alethea - July 18, 2023 12:22pm Name of Medical Power of Warehouse Production Worker Alethea bates October 01, 2023 3:43pm Advance Directives No September 3:26pm Living Will Yes October 01, 2 024 3:43pm Power of Warehouse Production Worker Yes October 01, 2023 3:43pm Advance Directive Response Recorded Date/ Time Name of Medical Power of Warehouse Production Worker Alethea - July 18, 2023 12:22pm Name of Medical Power of Warehouse Production Worker Alethea bates October 01, 2023 3:43pm Name of Medical Power of Warehouse Production Worker alethea bates October 21, 2023 5:41pm Advance Directives No September 3:26pm Living Will Yes October 21, 2023 5:41pm Power of Warehouse Production Worker Yes October 20 5:41pm Advance Directive Response Recorded Date/ Time Name of Medical Power of Warehouse Production Worker Alethea - July 18, 2023 1:22pm Name of Medical Power of Warehouse Production Worker Aletheajonelle bates October 01, 2023 4:43pm Name of Medical Power of Warehouse Production Worker alethea bates October 21, 2023 9:44pm Advance Directives No September 4:26pm Living Will Yes October 21, 2023 9:44pm Power of Warehouse Production Worker Yes October 20 9:44pm Advance Directive Response Recorded Date/ Time Name of Medical Power of Warehouse Production Worker Alethea - July 18, 2023 1:22pm Name of Medical Power of Warehouse Production Worker Alethea Bates November 01, 2023 11:18am Advance Directives No September 4:26pm Living Will Yes November 01, 2023 11:18am Power of Warehouse Production Worker Yes October 31 11:18am Name of Medical Power of Warehouse Production Worker Alethea bates October 01, 2023 4:43pm Name of Medical Power of Warehouse Production Worker alethea bates October 21, 2023 9:44pm Advance Directive Response Recorded Date/ Time Name of Medical Power of Warehouse Production Worker Alethea Bates November 01, 2023 11:18am Name of Medical Power of Warehouse Production Worker alethea bates December 10, 2023 1:02am Advance Directives No September 4:26pm Living Will Yes December 10, 2023 1:02am Power of Warehouse Production Worker Yes December 09 1:02am Name of Medical Power of Warehouse Production Worker Alethea bates October 01, 2023 4:43pm Name of Medical Power of Warehouse Production Worker alethea bates October 21, 2023 9:44pm Advance Directive Response Recorded Date/ Time Advance Directives No July 17, 2024 9:59am Advance Directive Response Recorded Date/ Time Living Will Yes April 18 9:11am Do you have a Healthcare Power of Warehouse Production Worker? Yes April 18, 2024 9:11am Advance Directives No July 17, 2024 9:59am Advance Directive Response Recorded Date/ Time Living Will Yes February 13, 2024 1 :42am Do you have a Healthcare Power of Warehouse Production Worker? Yes February 13, 2024 1:42am Living Will Yes April 18 9:11am Do you have a Healthcare Power of Warehouse Production Worker? Yes April 18, 2024 9:11am Advance Directives No Chris 4th, 2024 9:59am Chief Complaint and Reason for [...] Essential (primary) hypertension Atherosclerotic heart disease of [place] coronary artery without angina pectoris Hyperlipemia Type 2 diabetes mellitus Chief Complaint RIGHT KNEE COLD SYMPTOMS Stomach Issues ABD PAIN 6 M FU RIGHT KNEE BACK PAIN Reason for Visit Right knee DJD Sinusitis Acute upper abdominal pain Essential (primary) hypertension Atherosclerotic heart disease of [place] coronary artery without angina pectoris Hyperlipemia Type 2 diabetes mellitus Acute upper abdominal pain Essential (primary) hypertension Otitis externa Hyperlipemia Type 2 diabetes mellitus Bilateral primary osteoarthritis of knee Chief Complaint 1 Y FU (MOVED FROM [facility]) LEFT EAR PAIN CAD, MURMUR CERVICAL Room [...] at L5 Chief Complaint SOB LUMBAR SPINE [facility] ER FU LUMBAR [...] pain Renal insufficiency Chief Complaint LUMBAR SPINE [facility] ER FU LUMBAR SPINE [...] OSTEOMYLITIS L-S PINE March 05, 2025 9:30am cardiology tech to read SYNCOPE March 05, 2025 1:03 [...] OSTEOMYLITIS L[place]S [place] March 05, 2025 9:30am cardiology tech to read SYNCOPE March 05, 2025 1:03 pm CP, AORTIC STENOSIS March 21, 2025 6:0 6am CP, AORTIC STENOSIS March 24, 2025 6: 59pm CERVICAL SPINE March 27, 2025 8: 45am Reason for Visit Admit Date Essential (primary) [...] wit h insufficiency February 25, 2025 8:41am Adjacent segment disease of lumbar spine with history of fusion procedure March 27, 2025 8:45am Degenerative disc disease (D DD) of lumbar region with discogenic back pain March 27, 2025 8:45am Lumbar stenosis with neurogenic claudica tion March 27, 2025 8:45am Chief Complaint Admit Date Syncopal Episode January 27, 2025 10:4 1am LUMBAR SPINE January 31, 2025 7:43 am room 3 January 31, 2025 8:14 am 1 Y FU February 25, 2025 8:41 am 30 DAY MONITOR March 05, 2025 8:00 am CERVICAL RADICULOPATHY, OSTEOMYLITIS L[place] March 05, 2025 9:30am cardiology tech to read SYNCOPE March 05, 2025 1:03 pm CP, AORTIC STENOSIS March 21, 2025 6:0 6am CP, AORTIC STENOSIS March 24, 2025 6: 59pm CERVICAL SPINE March 27, 2025 8: 45am Annual/Physical (Flu Shot) May 15, 2025 10:43am Chief Complaint Admit Date Syncopal Episode January 27, 2025 10:4 1am LUMBAR SPINE January 31, 2025 7:43 am room 3 January 31, 2025 8:14 am 1 Y FU February 25, 2025 8:41 am 30 DAY MONITOR March 05, 2025 8:00 am CERVICAL RADICULOPATHY, OSTEOMYLITIS L[place] March 05, 2025 9:30am cardiology tech to read SYNCOPE March 05, 2025 1:03 pm CP, AORTIC STENOSIS March 21, 2025 6:0 6am CP, AORTIC STENOSIS March 24, 2025 6: 59pm CERVICAL SPINE March 27, 2025 8: 45am Annual/Physical (Flu Shot) May 15, 2025 10:43am INT LABS May 22, 2025 7: 46am 3 M FU May 22, 2025 7: 53am Reason for Visit Admit Date Essential (primary) [...] wit h insufficiency February 25, 2025 8:41am Adjacent segment disease of lumbar spine with history of fusion procedure March 27, 2025 8:45am Degenerative disc disease (D DD) of lumbar region with discogenic back pain March 27, 2025 8:45am Lumbar stenosis with neurogenic claudica tion March 27, 2025 8:45am Acute upper respiratory infection Octobe r 2024 10:43am Adjacent segment disease of lumbar spine with history of fusion procedure May 15, 2025 10:43am Bilateral primary osteoarthritis of knee May 15, 2025 10:43am Degenerative disc disease (D DD) of lumbar region with discogenic back pain May 15, 2025 10:43am Essential (primary) hypertension May 15, 2025 10:43am Hyperlipemia May 15, 2025 10 :43am Type 2 diabetes mellitus May 15 10:43am Hyperlipemia May 22, 2025 7: 53am Syncope May 22, 2025 7: 53am H/O coronary artery bypass surgery Octob er 2024 7:53am Nonrheumatic aortic (valve) stenosis wit h insufficiency May 22, 2025 7:53am Medications Administered Section Inactive Administered Medications - up to 3 most recent administrations Medication Order MAR Action Action Date Dose Rate Site benzocaine 20% 1 [place] (TOPEX) 1 [place], TOPICAL, DIRECTED, Starting on Mon09/27/22 at 1000, [...] FOR PROCEDURAL SEDATION ONLY, Intraprocedure Given by [facility] 09/27/2022 9:46 AM EST 50 mcg Given by [facility] 09/27/2022 9:44 AM EST 50 mcg [...] 10:13 AM EST 2 mg Given by [facility] 09/27/2022 9:46 AM EST 2 mg Given by [facility] 09/27/2022 9:44 AM EST 3 mg [...] section and content) DATE CREATED AUTHOR 02/05/2018 [facility] DATE CREATED AUTHOR 'S ORGANIZ ATION 02/05/2018 [facility] DATE CREATED AUTHOR AUTHOR'S ORGANIZ ATION 11/16/2022 [facility] DATE CREATED AUTHOR AUTHOR'S ORGANIZ ATION 09/29/2023 [facility] DATE CREATED AUTHOR AUTHOR'S ORGANIZ ATION 06/07/2025 [facility] Goals (unrecognized section and content) Goals [...] any alcohol or drug abuse patient.[facility] the event this information is protected by the Federal Confidentiality of Alcohol and Drug Abuse Patient Records regulations: The Federal rules restrict any use of the information to criminally investigate or prosecute any alcohol or drug abuse patient.[facility] the event this information is protected by the Federal Confidentiality of Alcohol and Drug Abuse Patient Records regulations: The Federal rules restrict any use of the information to criminally investigate or prosecute any alcohol or drug abuse patient.[facility] the event this information is protected by the Federal Confidentiality of Alcohol and Drug Abuse Patient Records regulations: The Federal rules restrict any use of the information to criminally investigate or prosecute any alcohol or drug abuse patient.[facility] the event this information is protected by the Federal Confidentiality of Alcohol and Drug Abuse Patient Records regulations: The Federal rules restrict any use of the information to criminally investigate or prosecute any alcohol or drug abuse patient.[facility] the event this information is protected by the Federal Confidentiality of Alcohol and Drug Abuse Patient Records regulations: The Federal rules restrict any use of the information to criminally investigate or prosecute any alcohol or drug abuse patient.[facility] the event this information is protected by the Federal Confidentiality of Alcohol and Drug Abuse Patient Records regulations: The Federal rules restrict any use of the information to criminally investigate or prosecute any alcohol or drug abuse patient.[facility] the event this information is protected by the Federal Confidentiality of Alcohol and Drug Abuse Patient Records regulations: The Federal rules restrict any use of the information to criminally investigate or prosecute any alcohol or drug abuse patient.[facility] the event this information is protected by the Federal Confidentiality of Alcohol and Drug Abuse Patient Records regulations: The Federal rules restrict any use of the information to criminally investigate or prosecute any alcohol or drug abuse patient.[facility] the event this information is protected by the Federal Confidentiality of Alcohol and Drug Abuse Patient Records regulations: The Federal rules restrict any use of the information to criminally investigate or prosecute any alcohol or drug abuse patient.[facility] the event this information is protected by the Federal Confidentiality of Alcohol and Drug Abuse Patient Records regulations: The Federal rules restrict any use of the information to criminally investigate or prosecute any alcohol or drug abuse patient.[facility] the event this information is protected by the Federal Confidentiality of Alcohol and Drug Abuse Patient Records regulations: The Federal rules restrict any use of the information to criminally investigate or prosecute any alcohol or drug abuse patient.[facility] the event this information is protected by the Federal Confidentiality of Alcohol and Drug Abuse Patient Records regulations: The Federal rules restrict any use of the information to criminally investigate or prosecute any alcohol or drug abuse patient.[facility] the event this information is protected by the Federal Confidentiality of Alcohol and Drug Abuse Patient Records regulations: The Federal rules restrict any use of the information to criminally investigate or prosecute any alcohol or drug abuse patient.[facility] Reason for Visit (unrecogniz ed section and content) Reason Comments Consult Colonoscopy Reason Comments 09/27/2022 colon asc Patient Update Reason Comments Add EGD Reason Comments Follow Up colonoscopy Reason Comments Results CT scan from [facility] Reason Comments Abdominal Pain Reason Comments [...] 2025 End: January 31, 2025 Team Status: Active Member Role Status Dates Dr. Weston Gutierrez MD Family Provider Active Marshall Bear MD Primary Care Provider Active Team Status: Inactive Member Role Status Dates Marshall Bear MD Primary Care Provider, Referring P rovider Active Dr. Talat Lund DO Attending Provider Active Team Status: Inactive Member Role Status Dates Marshall Bear MD Primary Care Provider, Referring P rovider Active TAE Cole Attending Provider Active Team Status: Inactive Member Role Status Dates Marshall Bear MD Primary Care Provider, Referring P rovider Active TAE Santillan Attending Provider Active Team Status: Inactive Member [...] Dr. 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 Talat Lund DO Attending Provider Active Team Status: Inactive Member Role Status Dates Marshall HARKINS MD Primary Care Provider Active Dr. Scotty Warner DO Attending Provider, Emergency Giuseppe fernández Active Team Status: Inactive Member Role Status Dates Dr. Elvia Pineda MD Emergency Provider Active Dr. 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 Jon Cast MD Active Rosa Maria STRONG, PA Attending Provider Active Dr. Marshall Bear MD Primary Care Provider Active Team Status: Inactive Member Role Status Dates Dr. Marshall Bear MD Primary Care Provider, Referri ng Provider Active Carson STRONG PA Attending Provider Active Team Status: Active [...] Bear MD Primary Care Provider Active Rosa aMria STRONG PA Attending Provider, Referr ing Provider Active Team Status: Inactive Member Role Status Dates Dr. 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 Marshall Bear MD Primary Care Provider Active Dr. 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 Marshall Bear MD Primary Care Provider, Referri ng Provider Active Jeff STRONG, PA Attending Provider Active Team Status: [...] Dr. 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 rAabella Walter DO Other Provider Active Dr. Susie [...] Other Provider Active Dr. Ventura Godoy , Attending Provider, Other Provi wilmar Active Team [...] Cortes MD Other Provider Active Dr. Dae Dsa MD Other Provider Active Dr. Zach Cartagena MD Other Provider Active Dr. Melody Mar MD Other Provider Active Modesto Abarca MD Other Provider Active Dr. Ochoa Figueroa MD Other Provider Active Dr. Tarik Wilkinson MD Other Provider Active Dr. Ventura Godoy DO Other Provider Active Dr. Jaspreet Armstrong [...] Other Provider Active Dr. Vin Wheatley , Attending Provider, Other Provid er Active Dr. [...] Dr. Vin Edmond DO Emergency Provider Active MARIIA Kimble Attending Provider [...] Attending Provider Active Start: March 05, 2025 Rosa Maria Cuevas PA, PA Referring Provider Active Start: March 05, 2025 Team Status: Active Member Role/Relationship Status Dates Dr. Marshall Bear MD Primary Care Provider Active Start: March 06, 2025 Dr. Juan Carlos Gagnon MD Attending Provider Active Start: March 06, 2025 Dr. Juan Carlos Gagnon MD Referring Provider Active Start: March 06, 2025 Team Status: Inactive Member Role/Relationship Status Dates Dr. Marshall Baer MD Primary Care Provider Active Start: March 06, 2025 End: March 06, 2025 Dr. Juan Carlos Gagnon MD Attending Provider Active Start: March 06, 2025 End: March 06, 2025 Dr. Juan Carlos Gagnon MD Referring Provider Active Start: March 06, 2025 End: March 06, 2025 Team Status: Active Member Role/Relationship Status Dates Dr. Marshall Bear MD Primary Care Provider Active Start: March 21, 2025 Rosa Maria Cuevas PA, PA Attending Provider Active Start: March 21, 2025 Rosa Maria Cuevas PA, PA Referring Provider Active Start: March 21, 2025 Team Status: Active Member Role/Relationship Status Dates Dr. Marshall Bear MD Primary Care Provider Active Start: March 21, 2025 Dr. Jon Cast MD Attending Provider Active S tart: March 21, 2025 Team Status: Active Member Role/Relationship Status Dates Dr. Marshall Bear MD Primary Care Provider Active Start: March 24, 2025 Rosa Maria Cuevas PA, PA Referring Provider Active Start: March 24, 2025 Rosa Maria Cuevas PA, PA Other Provider Active Start: March 24, 2025 Dr. Jon Cast MD Attending Provider Active S tart: March 24, 2025 Team Status: Inactive Member Role/Relationship Status Dates Dr. Marshall Bear MD Primary Care Provider Active Start: March 27, 2025 End: March 27, 2025 Dr. Marshall Bear MD Referring Provider Active Start: March 27, 2025 End: March 27, 2025 TAE Proctor Attending Provider Active Star t: March 27, 2025 End: March 27, 2025 Team Status: Inactive Member Role/Relationship Status Dates Dr. Marshall Bear MD Primary Care Provider Active Start: March 21, 2025 End: March 21, 2025 Rosa Maria STRONG, PA Attending Provider Active Start: March 21, 2025 End: March 21, 2025 Rosa Maria Cuevas PA, PA Referring Provider Active Start: March 21, 2025 End: March 21, 2025 Team Status: Active Member Role/Relationship Status Dates Dr. Marshall Bear MD Primary care physician Active Team Status: Inactive Member Role/Relationship Status Dates Dr. Marshall Bear MD Primary care physician Active Start: January 27, 2025 End: January 27, 2025 Dr. Marshall Bear MD Attending physician Active Start: January 27, 2025 End: January 27, 2025 Team Status: Inactive Member Role/Relationship Status Dates Dr. Marshall Bear MD Primary care physician Active Start: January 28, 2025 End: January 28, 2025 Dr. Marshall Bear MD Attending physician Active Start: January 28, 2025 End: January 28, 2025 Team Status: Inactive Member Role/Relationship Status Dates Dr. Marshall Bear MD Primary care physician Active Start: January 31, 2025 End: January 31, 2025 Dr. Marshall Bear MD Referring Provider Active Start: January 31, 2025 End: January 31, 2025 Dr. Bjorn Bradshaw MD Attending physician Active Start: January 31, 2025 End: January 31, 2025 Team Status: Inactive Member Role/Relationship Status Dates Dr. Marshall Bear MD Primary care physician Active Start: January 31, 2025 End: January 31, 2025 Dr. Jon Cast MD Attending physician Active Start: January 31, 2025 End: January 31, 2025 Team Status: Inactive Member Role/Relationship Status Dates Dr. Marshall Bear MD Primary care physician Active Start: February 25, 2025 End: February 25, 2025 Dr. Marshall Bear MD Referring Provider Active Start: February 25, 2025 End: February 25, 2025 Rosa Maria STRONG, PA Attending physician Active Start: February 25, 2025 End: February 25, 2025 Team Status: Active Member Role/Relationship Status Dates Dr. Marshall Bear MD Primary care physician Active Start: March 05, 2025 Dr. Jon Cast MD Attending physician Active Start: March 05, 2025 Rosa Maria STRONG, PA Referring Provider Active Start: March 05, 2025 Team Status: Inactive Member Role/Relationship Status Dates Dr. Marshall Bear MD Primary care physician Active Start: March 05, 2025 End: March 05, 2025 Dr. Bjorn Bradshaw MD Nurse Practitioner Active Start: March 05, 2025 End: March 05, 2025 Dr. Tarik Wilkinson MD Attending physician Active Start: March 05, 2025 End: March 05, 2025 Dr. Tarik Wilkinson MD Referring Provider Active Start: March 05, 2025 End: March 05, 2025 Team Status: Active Member Role/Relationship Status Dates Dr. Marshall Bear MD Primary care physician Active Start: March 05, 2025 Rosa Maria STRONG, PA Attending physician Active Start: March 05, 2025 Rosa Maria STRONG, PA Referring Provider Active Start: March 05, 2025 Team Status: Inactive Member Role/Relationship Status Dates Dr. Marshall Bear MD Primary care physician Active Start: March 06, 2025 End: March 06, 2025 Dr. Juan Carlos Gagnon MD Attending physician Active Start: March 06, 2025 End: March 06, 2025 Dr. Juan Carlos Gagnon MD Referring Provider Active Start: March 06, 2025 End: March 06, 2025 Team Status: Inactive Member Role/Relationship Status Dates Dr. Marshall Bear MD Primary care physician Active Start: March 21, 2025 End: March 21, 2025 Rosa Maria Cuevas PA, PA Attending physician Active Start: March 21, 2025 End: March 21, 2025 Rosa Maria Cuevas PA, PA Referring Provider Active Start: March 21, 2025 End: March 21, 2025 Team Status: Active Member Role/Relationship Status Dates Dr. Marshall Bear MD Primary care physician Active Start: March 21, 2025 Dr. Jon Cast MD Attending physician Active Start: March 21, 2025 Team Status: Active Member Role/Relationship Status Dates Dr. Marshall Bear MD Primary care physician Active Start: March 24, 2025 Rosa Maria STRONG, PA Referring Provider Active Start: March 24, 2025 Rosa Maria STRONG, PA Nurse Practitioner Active Start: March 24, 2025 Dr. Jon Cast MD Attending physician Active Start: March 24, 2025 Team Status: Inactive Member Role/Relationship Status Dates Dr. Marshall Bear MD Primary care physician Active Start: March 27, 2025 End: March 27, 2025 Dr. Marshall Bear MD Referring Provider Active Start: March 27, 2025 End: March 27, 2025 TAE Proctor Attending physician Active Sta rt: March 27, 2025 End: March 27, 2025 Team Status: Inactive Member Role/Relationship Status Dates Dr. Marshall Bear MD Primary care physician Active Start: May 15, 2025 End: May 15, 2025 Dr. Marshall Bear MD Attending physician Active Start: May 15, 2025 End: May 15, 2025 Team Status: Active Member Role/Relationship Status Dates Dr. Marshall Bear MD Primary care physician Active Start: May 22, 2025 Dr. Marshall Bear MD Attending physician Active Start: May 22, 2025 Dr. Marshall Bear MD Referring Provider Active Start: May 22, 2025 Team Status: Inactive Member Role/Relationship Status Dates Dr. Marshall Bear MD Primary care physician Active Start: May 22, 2025 End: May 22, 2025 Dr. Marshall Bear MD Referring Provider Active Start: May 22, 2025 End: May 22, 2025 Rosa Maria STRONG, PA Attending physician Active Start: May 22, 2025 End: May 22, 2025 Inactive Administered Medications - up to 3 most recent administrations Administered Medications (un recognized section and content) Medication Order MAR Action Action Date Dose Rate Site benzocaine 20% 1 [place] (TOPEX) 1 [place], TOPICAL, DIRECTED, Starting on Mon10/11/23 at 0900, [...] BE BASED ON THE PRIMARY CLINICAL RECORDS. [employer] provides no warranty or guarantee of the accuracy or completeness of information in this document.
[2025-08-01] MEDS: Lactated Ringers 1,000 ML 15 ML IV (06:09)
--- NOTE | 2025-08-01 06:26 | PRE.ANES_ITS ---
ASA Classification* ASA Classification ASA Classification: 3 Assessment & Plan Anesthesia* Anesthesia Assessment Anesthesia Assessment: Discussed sedation and/or anesthesia options, risks, benefits, and alternatives with patient/parents/legal guardian/POA. Questions invited. The patient/parents/legal guardian/POA seems to understand and agrees to proceed with anesthesia plan. Reviewed the physical assessment, medical history, allergy history and patient home medications list prior to surgery/procedure/anesthetic and documented any changes. Performed airway and anesthesia risk assessments. Anesthesia Type Anesthesia Type: MAC (Patient has moderate aortic stenosis. Avoid increased heart rates and decrease blood pressure. Phenylephrine is drug of choice. Patient chewed tobacco at 3:30 AM. We will have to wait 6 hours prior to anesthesia.) History Source History Obtained from:: Patient and Chart Anesthesia Focused Assessment* Temperature: 97.2 F Pulse Rate: 50 Blood Pressure: 126/72 Respiratory Rate: 16 Pulse Ox: 99 Oxygen Delivery Method: Room Air Airway Assessment Mouth opens: >3 cm Mallampati Score: II Teeth Condition: Missing (Patient has multiple missing teeth. Current teeth are tight.) Neck Range of motion (ROM): Limited ROM (Somewhat Decreased secondary to cervical fusion.) Labs Anesthesia Preop lab: CBC WBC, (4.4-11.0) 4.6 K/mm3 07/09/25, 09:05 RBC, (4.6-6.2) 4.76 M/mm3 07/09/25, 09:05 Hgb, (13.0-16.5) 14.2 g/dL 07/09/25, 09:05 Hct, (40-54) 42.3 % 07/09/25, 09:05 Plt Count, (150-450) 173 K/mm3 07/09/25, 09:05 CHEMISTRY Potassium, (3.3-5.1) 4.2 mmol/L 07/09/25, 09:05 Sodium, (133-145) 142 mmol/L 07/09/25, 09:05 Magnesium, (1.6-2.6) 2.0 mg/dL 09/19/24, 15:12 Phosphorus, (2.5-4.9) 3.1 mg/dL 03/20/24, 04:40 BUN, (4-19) 22 mg/dL H 07/09/25, 09:05 Creatinine, (0.70-1.20) 1.58 mg/dL H 07/09/25, 09:05 Glucose, (70-99) 94 mg/dL 07/09/25, 09:05 POC Glucose, (74-106) 114 mg/dL H 03/21/24, 06:39 TSH, (0.300-4.200) 1.930 uIU/mL 05/22/25, 07:49 COAG PT, (11.7-14.9) 13.4 SECONDS 01/12/24, 10:54 Pre-Assessment Diagnosis/Proposed Procedure Planned Operative Procedure(s): EGD Anesthesia History 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 When Was Last Pacemaker Check QUESTION #4 FULL TEXT: You/Your Family Experience fever (hyperthermia) with Anesthesia Last Oral Intake Last Oral intake: Last Oral Intake NPO since 21:30 08/01/25 05:58 Meds taken in AM with sips of Yes 08/01/25 05:58 water? Meds patient instructed to protonsenthil ortiz @0400 08/01/25 05:58 take am of surgery Any additional information?: Yes NPO since: 03:30 (Patient chewed tobacco at 3:30 AM.) PONV PONV - banbury operator: PONV - banbury operator Female No 07/31/25 09:22 HX of Motion Sickness No 07/31/25 09:22 HX of N/V After Surgery No 07/31/25 09:22 Non-Smoker Yes 07/31/25 09:22 Duration of Surgery greater No 07/31/25 09:22 than 60 minutes Number of Risk Factors 1 07/31/25 09:22 PONV Score Low Risk 07/31/25 09:22 Height & Weight Height & Weight: Anesthesia: Height & Weight Height 5 ft 10 in 08/01/25 05:58 Weight: 87.543 kg 08/01/25 05:58 Body Mass Index (BMI) 27.6 08/01/25 05:58 Respiratory Assessment Respiratory Assessment - banbury operator: Respiratory Tract Infection Hx - banbury operator Hx Respiratory Tract Infection No 07/31/25 09:22 Any additional information?: Yes Hx Respiratory Tract Infection: Yes History of Anesthesia Respiratory Infection details: Patient had bronchitis in the past couple weeks. He is recovering. Has completed a course of antibiotics. STOP Sleep Apnea STOP Sleep Apnea - banbury operator: STOP Sleep Apnea - banbury operator Hx Hypertension Yes 07/31/25 09:22 Hx Sleep Apnea No 07/31/25 09:22 CPAP No 07/17/24 08:59 BIPAP No 07/17/24 08:59 Do you snore loudly (louder No 07/31/25 09:22 than talking or can be heard Do you often feel tired/ No 07/31/25 09:22 fatigued/ sleepy during daytime? Has anyone observed you stop No 07/31/25 09:22 breathing during sleep? STOP Results Negative 07/31/25 09:22 QUESTION #5 FULL TEXT : Do you snore loudly (louder than talking or can be heard through closed doors)? 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 Specify any problems Hx of Preganancy in last 3 N/A 07/31/25 09:22 Months Nurse Filling Out Transfusion JZOLLINGE 07/31/25 09:22 & Questions: Date: 07/31/25 07/31/25 09:22 Time: 07/31/25 09:22 Patient unable to answer at this time (ie. confused, unrespo /Reproduction History /Reproductive History - banbury operator: /Reproductive Hx- banbury operator Hx Now No 07/31/25 09:22 Gestational Age (in weeks): EDC: Hx Hx Para Hx Section SAB No 07/31/25 09:22 Does the father of the baby or his family experience fever w Father of the baby Malignant Hypertension history comment Active Medications Active Medications: Current Medications Generic Name Dose Route Start Last Admin Trade Name Freq PRN Reason Stop Dose Admin Lactated Ringer's 1,000 mls @ 15 mls/hr 08/01/25 06:00 08/01/25 06:09 IV 15 mls/hr .Q48H AMADO Administration PFSH Medical History (Updated 07/31/25 @ 09:33 by Funmi Moura) Abnormal leg movement Dizziness Balance problem Myalgia Acute upper respiratory infection Scoliosis Thoracic spine pain Chills Right upper quadrant pain Left ankle pain Osteomyelitis Pain of left calf Foot pain Hyponatremia Vasovagal episode Pulse irregularity Bilirubinuria Contact with or exposure to other viral diseases Lumbosacral radiculopathy at L5 History of steroid therapy Smokeless tobacco use Tension headache Agent orange exposure Bilateral primary osteoarthritis of knee Wears hearing aid Cancer Alcohol use Diabetes Ambulates with cane Arthritis Prostate disease High cholesterol (~08/21/23) Restless legs Back pain Injury of head and neck Syncope History of IBS Shortness of breath on exertion History of pain when walking History of echocardiogram History of stress test Cardiology follow-up encounter Tear of medial meniscus of right knee Fibromyalgia BPH w urinary obs/LUTS Left knee DJD Right knee DJD Fusion of spine, cervical region Chondromalacia, right knee Chondromalacia, left knee Chondromalacia of both patellae COVID-19 virus detected (11/19/20) Nonrheumatic aortic (valve) stenosis with insufficiency Opioid dependence Obesity Asthma Hyperlipemia Essential (primary) hypertension Atherosclerotic heart disease of [place] coronary artery without angina pectoris Type 2 diabetes mellitus Spondylosis of lumbosacral region without myelopathy or radiculopathy Spinal stenosis of lumbosacral region Radiculopathy of lumbosacral region Degeneration of intervertebral disc of lumbosacral region Arthropathy of cervical facet joint Degeneration of cervical disc without myelopathy Cervical spondylosis Home Medications ?Medication ?Instructions ?Recorded ?Last Taken ?Type multivitamin 1 tab PO DAILY supplement 07/31/25 History handicap placard #1 ea 04/21/22 Unknown Rx fluticasone propionate 50 1 - 2 spray intranasal BID P RN 04/27/23 07/31/25 Rx mcg/actuation nasal allergies, congestion #16 gr ams spray,suspension sennosides 8.6 mg-docusate sodium 2 tab PO BID PRN con stipation 10 01/23/24 07/31/25 Rx 50 mg tablet (Stool days #40 tabs Softener-Stimulant Laxative) blood sugar diagnostic (FreeStyle #100 ea 07/18/24 Unk nown Rx Lite Strips) blood-glucose meter (FreeStyle #1 ea 07/18/24 Unknown Rx Lite Meter kit) linaclotide 72 mcg capsule 72 mcg PO DAILY PRN irritab le 10/01/24 07/31/25 Rx (Linzess) colon #90 caps metformin 500 mg tablet 500 mg PO BID DIABETIC 1 mon th 12/18/24 07/31/25 Rx #180 tabs aspirin 81 mg tablet,delayed 81 mg PO QDAY 02/25/25 History release (Adult Low Dose Aspirin) baclofen 5 mg tablet 5 mg PO BID 02/25/25 5 History albuterol sulfate 90 mcg/actuation 1 - 2 puff inhalati on Q4H PRN 05/15/25 07/31/25 Rx aerosol inhaler Wheezing #8.5 grams atorvastatin 40 mg tablet 40 mg PO QHS CHOLESTEROL #90 tabs 05/22/25 07/31/25 Rx gabapentin 300 mg capsule 300 mg PO TID 05/22/2507/31 History ondansetron 4 mg disintegrating 4 mg PO QAM PRN nausea 05/22/25 08/01/25 04:00 History tablet oxycodone-acetaminophen 5 mg-325 1 tab PO TID 05/22/25 07/31/25 History mg tablet pantoprazole 40 mg tablet,delayed 40 mg PO QDAY #30 ta bs 07/09/25 08/01/25 04:00 Rx release guaifenesin 600 mg tablet, 600 mg PO BID PRN cough #20 tabs 07/21/25 Unknown Rx extended release 12 hr tamsulosin 0.4 mg capsule 0.4 mg PO DAILY BPH #90 caps 07/21/25 07/31/25 Rx trazodone 100 mg tablet See Rx Instructions PO QHS s leep 07/22/25 07/31/25 Rx #90 tabs Allergy/AdvReac Type Severity Reaction Status Date / Time adhesive tape Allergy Rash Verified 07/31/25 09:17 sertraline (From Zoloft) AdvReac Unknown Verified 07/31/25 09:17 Family History Brother Heart disease Myocardial infarction 60's CAD (coronary artery disease) Father Myocardial infarction 65 CAD (coronary artery disease) Mother HLD (hyperlipidemia) when son was 16 following MVA, healthy aside HLD. Surgical History (Updated 07/31/25 @ 09:33 by Funmi Moura) Hx of laminectomy S/P laminectomy Status post discectomy for herniated nucleus pulposus History of lateral meniscus repair of right knee (~2021) Hx laparoscopic cholecystectomy (~11/2022) Hx of bilateral cataract extraction H/O cervical spine surgery (08/2020) History of herniorrhaphy History of carpal tunnel release History of back surgery History of left heart catheterization (09/09/11) H/O coronary artery bypass surgery (09/14/11) Social History household members: spouse current occupational status: retired pets and animals: Yes pets and animals: bird(s) Smoking Status: Former smoker Smokeless tobacco user: chewing tobacco alcohol intake: current alcohol intake frequency: holidays/special occasions only substance use type: marijuana and other details: medical marijuana for pain caffeine: Yes Type: coffee Number of servings: 2 do you feel safe at home: Yes Review of Systems (Anesthesia) ROS Narrative System reviewed and no additional complaints, except as documented.
--- NOTE | 2025-08-01 06:30 | EGD_PTH ---
PATIENT: JARET FIGUEROA LOC: EN U#:[id number] AGE/SX: 70/M ROOM: RE08/01/[address]: Dr. Carlo Ricketts DO : 1955 BED: DIS: 08/01/2025 SPEC #: [id number] RECD: 08/01/25 09:57 STATUS: CHYNA RECarlos #: [id number] ZANE: 08/01/25 06:[address]: Carlo Ricketts DEPT: SURGICAL PATHOLOGY RECD BY: Mika Barker ENTERED: 08/01/25 11:18 SP TYPE: EGD BIOPSY ARSLAN DR: Dr. Marlen Bear MD Tissues: A - Gastric mucous membrane Procedures: Surgery Specimen Level IV HEADER OPERATION: EGD with biopsy PRE-OP DIAGNOSIS: Anemia, abdominal pain, black stools TISSUE SUBMITTED: A- Gastric body biopsy MICROSCOPIC DIAGNOSIS A. Stomach, body, biopsy: Oxyntic mucosa with no specific pathologic change. Negative for Helicobacter-like organisms (H&E). MICROSCOPIC DESCRIPTION Slides are reviewed. GROSS DESCRIPTION A. Received in fixative is one container labeled with the patient's name and designated Gastric body biopsy. The specimen consists of two irregular fragments of meredith tissue, each measuring 0.4 cm. The specimen is totally submitted in one cassette. [place] 08/01/2025 CPT:04975
--- NOTE | 2025-08-01 07:25 | HP.PCM_ITS ---
HPI - General General Date of Admission: 08/01/25 Date of Service: 08/01/25 Chief Complaint: Abdominal pain HPI Narrative ABDIRIZAK FIGUEROA, is a 70 M who presents [Chief Complaint: Epigastric abdominal pain Patient with a past medical history of diabetes, hypertension, hyperlipidemia, osteomyelitis, discitis, malnutrition, status post lumbar spinal fusion and upper respiratory infection here today for evaluation. Over the past year patient has been recovering from a spinal fusion and subsequent osteomyelitis. Patient has been on oral antibiotics for over a year. In April 2025 patient started to have upper respiratory symptoms, a bdominal pain and diarrhea. He was treated with oral antibiotics and the upper respiratory symptoms resolved. He continues to have epigastric abdominal pain that is consistent and characterized as burning. He has associated nausea and lack of appetite but no vomiting. It is not worse with oral intake. On occasion eating toast will alleviate his symptoms. Patient having soft bowel movements but not diarrhea. Over the past few weeks he endorses black tarry looking stools. He denies history of GI bleeding in the past. Last EGD appears to be from September 2023 which showed chronic gastritis and esophagitis. He currently takes Prilosec 20 mg [id number]. CBC W/Diff, Automated Today D64.9 - Anemia, unspecified Comprehensive Metabolic Profil Today D64.9 - Anemia, unspecified ENTERIC PATHOGEN PANEL STOOL Today K58.9 - Irritable bowel syndrome, unspecified, R19.5 - Other fecal abnormalities CDIFF (PCR) Today D64.9 - Anemia, unspecified Calprotectin, Stool Today D64.9 - Anemia, unspecified OVA+PARA w/Giardia EIA [id number] Today D64.9 - Anemia, unspecified Medications: New pantoprazole 40 mg PO QDAY 30 tabs 2RF ] [facility] Medical History Abnormal leg movement Dizziness Balance problem Myalgia Acute upper respiratory infection Scoliosis Thoracic spine pain Chills Right upper quadrant pain Left ankle pain Osteomyelitis Pain of left calf Foot pain Hyponatremia Vasovagal episode Pulse irregularity Bilirubinuria Contact with or exposure to other viral diseases Lumbosacral radiculopathy at L5 History of steroid therapy Smokeless tobacco use Tension headache Agent orange exposure Bilateral primary osteoarthritis of knee Wears hearing aid Cancer Alcohol use Diabetes Ambulates with cane Arthritis Prostate disease High cholesterol (~08/21/23) Restless legs Back pain Injury of head and neck Syncope History of IBS Shortness of breath on exertion History of pain when walking History of echocardiogram History of stress test Cardiology follow-up encounter Tear of medial meniscus of right knee Fibromyalgia BPH w urinary obs/LUTS Left knee DJD Right knee DJD Fusion of spine, cervical region Chondromalacia, right knee Chondromalacia, left knee Chondromalacia of both patellae COVID-19 virus detected (11/19/20) Nonrheumatic aortic (valve) stenosis with insufficiency Opioid dependence Obesity Asthma Hyperlipemia Essential (primary) hypertension Atherosclerotic heart disease of upper [place] coronary artery without angina pectoris Type 2 diabetes mellitus Spondylosis of lumbosacral region without myelopathy or radiculopathy Spinal stenosis of lumbosacral region Radiculopathy of lumbosacral region Degeneration of intervertebral disc of lumbosacral region Arthropathy of cervical facet joint Degeneration of cervical disc without myelopathy Cervical spondylosis Home Medications ?Medication ?Instructions ?Recorded ?Last Taken ?Type multivitamin 1 tab PO DAILY supplement 07/31/25 History handicap placard #1 ea 04/21/22 Unknown Rx fluticasone propionate 50 1 - 2 spray intranasal BID P RN 04/27/23 07/31/25 Rx mcg/actuation nasal allergies, congestion #16 gr ams spray,suspension sennosides 8.6 mg-docusate sodium 2 tab PO BID PRN con stipation 10 01/23/24 07/31/25 Rx 50 mg tablet (Stool days #40 tabs Softener-Stimulant Laxative) blood sugar diagnostic (FreeStyle #100 ea 07/18/24 Unk nown Rx Lite Strips) blood-glucose meter (FreeStyle #1 ea 07/18/24 Unknown Rx Lite Meter kit) linaclotide 72 mcg capsule 72 mcg PO DAILY PRN irritab le 10/01/24 07/31/25 Rx (Linzess) colon #90 caps metformin 500 mg tablet 500 mg PO BID DIABETIC 1 mon th 12/18/24 07/31/25 Rx #180 tabs aspirin 81 mg tablet,delayed 81 mg PO QDAY 02/25/25 History release (Adult Low Dose Aspirin) baclofen 5 mg tablet 5 mg PO BID 02/25/25 5 History albuterol sulfate 90 mcg/actuation 1 - 2 puff inhalati on Q4H PRN 05/15/25 07/31/25 Rx aerosol inhaler Wheezing #8.5 grams atorvastatin 40 mg tablet 40 mg PO QHS CHOLESTEROL #90 tabs 05/22/25 07/31/25 Rx gabapentin 300 mg capsule 300 mg PO TID 05/22/2507/31 History ondansetron 4 mg disintegrating 4 mg PO QAM PRN nausea 05/22/25 08/01/25 04:00 History tablet oxycodone-acetaminophen 5 mg-325 1 tab PO TID 05/22/25 07/31/25 History mg tablet pantoprazole 40 mg tablet,delayed 40 mg PO QDAY #30 ta bs 07/09/25 08/01/25 04:00 Rx release guaifenesin 600 mg tablet, 600 mg PO BID PRN cough #20 tabs 07/21/25 Unknown Rx extended release 12 hr tamsulosin 0.4 mg capsule 0.4 mg PO DAILY BPH #90 caps 07/21/25 07/31/25 Rx trazodone 100 mg tablet See Rx Instructions PO QHS s leep 07/22/25 07/31/25 Rx #90 tabs Allergy/AdvReac Type Severity Reaction Status Date / Time adhesive tape Allergy Rash Verified 07/31/25 09:17 sertraline (From Zoloft) AdvReac Unknown Verified 07/31/25 09:17 Family History Brother Heart disease Myocardial infarction 60's CAD (coronary artery disease) Father Myocardial infarction 65 CAD (coronary artery disease) Mother HLD (hyperlipidemia) when son was 16 following MVA, healthy aside HLD. Surgical History Hx of laminectomy S/P laminectomy Status post discectomy for herniated nucleus pulposus History of lateral meniscus repair of right knee (~2021) Hx laparoscopic cholecystectomy (~11/2022) Hx of bilateral cataract extraction H/O cervical spine surgery (08/2020) History of herniorrhaphy History of carpal tunnel release History of back surgery History of left heart catheterization (09/09/11) H/O coronary artery bypass surgery (09/14/11) Social History household members: spouse current occupational status: retired pets and animals: Yes pets and animals: bird(s) Smoking Status: Former smoker Smokeless tobacco user: chewing tobacco alcohol intake: current alcohol intake frequency: holidays/special occasions only substance use type: marijuana and other details: medical marijuana for pain caffeine: Yes Type: coffee Number of servings: 2 do you feel safe at home: Yes ROS Constitutional Constitutional: Denies fatigue, fever(s), poor appetite, weight gain or weight loss Gastrointestinal Gastrointestinal: Denies belching, bloating, change in bowel habits, change in stool character, chewing difficulty, coffee ground emesis, constipation, cramping, diarrhea, dyspepsia, dysphagia, early satiety, excessive flatus, fecal incontinence, heartburn, hematemesis, hematochezia, hemorrhoids, loose stools, melena, nausea, odynophagia, rectal bleeding, tenesmus, vomiting or weight tristian nges Patient's Goals Of Care . What would you like to achieve or improve as a result of your hospital stay?: None Vital Signs Vital Signs Vital Signs: 08/01/25 05:58 08/01/25 05:58 08/01/25 05:58 Temperature 97.2 F L Temperature Source Temporal Pulse Rate 50 L Respiratory Rate 16 Respiratory Pattern Irregular Blood Pressure 126/72 H Blood Pressure Mean 90 Blood Pressure Source Monitor Blood Pressure Position Semi-Fowlers Blood Pressure Location Right Arm Baseline BP 126/72 Pulse Ox 99 Oxygen Delivery Method Room Air 08/01/25 06:37 Temperature 97.2 F L Temperature Source Pulse Rate 50 L Respiratory Rate 16 Respiratory Pattern Blood Pressure 126/72 H Blood Pressure Mean Blood Pressure Source Blood Pressure Position Blood Pressure Location Baseline BP Pulse Ox 99 Oxygen Delivery Method Room Air Weight Weight: 193 lb Body Mass Index (BMI) 27.6 Physical Exam Const alert, oriented x3, no apparent distress and healthy appearing General Appearance: cooperative GI normal to inspection, nondistended, normoactive bowel sounds, soft to palpation, non-tender and non-distended Percussion: normal to percussion Rectal Exam: deferred Assessment & Plan Assessment/Plan (1) Anemia: PLAN: Assessment and Plan Assessment and Plan (1) Anemia: Status: Acute (2) Abdominal pain: Status: Resolved (3) Black stools: Status: Acute Plan: Abdirizak is a 70-year-old male patient with past medical history of hypertension, diabetes, hyperlipidemia, status post spinal fusion and subsequent development of osteomyelitis here today for evaluation of GI symptoms. Patient symptoms started in April 2025 after being diagnosed with an upper respiratory infection. Patient endorsed diarrhea and abdominal pain at that time. He was treated with oral antibiotics which improved his URI and diarrhea however he continues to have upper abdominal/epigastric pain that is constant and burning. He has associated nausea but no vomiting. Pain is not exacerbated by oral intake. He is on Prilosec 20 mg daily. Endorsing 2 to 3 weeks of small black and tarry stools. Last EGD appears to be from September 2023 which showed chronic gastritis and esophagitis. Recommended repeat EGD for evaluation of his upper GI tract and to rule out bleeding and/or ulcer. I have started him on pantoprazole 40 mg once a day. I have also ordered CBC, CMP and stool testing for inflammation and infection. If workup is unremarkable and symptoms improve with pantoprazole he may cancel his EGD. - EGD - CBC and CMP - Stool studies - Start pantoprazole 40 mg daily Note: Portions of this note may have been selectively carried forward from previous documentation to ensure continuity and accuracy of the clinical record. All imported information has been reviewed and updated as necessary to reflect the current patient status, findings, and clinical decision-making for this encounter. [employer] speech recognition captain fire prevention bureau software was used to create portions of this document. Sound alike and misspelled words, as well as other captain fire prevention bureau errors may be contained in the documentation. Orders: Orders
[2025-08-01] MEDS: Lidocaine 1% (5 ml sdv) 5 ML Vial IV (09:17)
--- NOTE | 2025-08-01 09:26 | PCM.POST.ANE ---
Anesthesia: Postop Eval I Current Vital Signs Temperature: 98 F Pulse Rate: 54 Blood Pressure: 124/75 Respiratory Rate: 17 Pulse Ox: 98 Oxygen Delivery Method: Room Air Assessment Airway patent: Yes Spontaneous unlabored respirations: Yes Mental status: Awake and Calm nausea: No Vomiting: No Anesthesia Complication: No Fluid Hydration Crystalloid volume administer (ml): 300 Total IV fluid infused: 300 Progress Note Anesthesia document: Postop Eval 1 completed: Yes
--- NOTE | 2025-08-01 09:34 | OP.EGD_ITS ---
Patient Name: Abdirizak Bates Procedure Date: 08/01/2025 6:22 AM Date of : 1955 Age: 70 Procedure: Upper GI endoscopy Indications: Epigastric abdominal pain, Failure to respond to medical treatment Providers: Carlo Ricketts DO Referring MD: Marlen Bear Medicines: Monitored Anesthesia Care Patient Profile: This is a 70 year old male. Refer to note in patient chart for documentation of history and physical. Patient has symptoms of chronic epigastric abdominal pain. Complications: No immediate complications. Procedure: Pre-Anesthesia Assessment: - Prior to the procedure, a History and Physical was performed, and patient medications and allergies were reviewed. The patient is competent. The risks and benefits of the procedure and the sedation options and risks were discussed with the patient. All questions were answered and informed consent was obtained. Patient identification and proposed procedure were verified by the physician in the pre-procedure area. Mental Status Examination: normal. Airway Examination: normal oropharyngeal airway and neck mobility. Respiratory Examination: clear to auscultation. CV Examination: normal. Prophylactic Antibiotics: The patient does not require prophylactic antibiotics. Prior Anticoagulants: The patient has taken no anticoagulant or antiplatelet agents. ASA Grade Assessment: II - A patient with mild systemic disease. After reviewing the risks and benefits, the patient was deemed in satisfactory condition to undergo the procedure. The anesthesia plan was to use moderate sedation / analgesia (conscious sedation). Immediately prior to administration of medications, the patient was re-assessed for adequacy to receive sedatives. The heart rate, respiratory rate, oxygen saturations, blood pressure, adequacy of pulmonary ventilation, and response to care were monitored throughout the procedure. The physical status of the patient was re-assessed after the procedure. After obtaining informed consent, the endoscope was passed under direct vision. Throughout the procedure, the patient's blood pressure, pulse, and oxygen saturations were monitored continuously. The gastroscope was introduced through the mouth, and advanced to the third part of the duodenum. Small bowel enteroscopy was deemed necessary. The upper GI endoscopy was accomplished without difficulty. The patient tolerated the procedure well. Scope In: 9:21:33 AM Scope Out: 9:23:04 AM Total Procedure Duration Time 0 hours 1 minute 31 seconds Findings: The examined esophagus was normal. Patchy mild inflammation characterized by congestion (edema) was found in the gastric body. Biopsies were taken with a cold forceps for histology. Biopsies were taken with a cold forceps for Helicobacter pylori testing. Verification of patient identification for the specimen was done. Estimated blood loss was minimal. No gross lesions were noted in the entire examined duodenum. Impression: - Normal esophagus. - Chronic gastritis. Biopsied. - No gross lesions in the entire examined duodenum. Recommendation: - Discharge patient to home. - Resume previous diet. - Continue present medications. - Await pathology results. -Carafate 1 g 3 times a day x 14 days Procedure Code(s): --- Professional --- 68134, Small intestinal endoscopy, enteroscopy beyond second portion of duodenum, not including ileum; with biopsy, single or multiple CPT copyright 2021 [employer]. All rights reserved. The codes documented in this report are preliminary and upon data coder operator review may be revised to meet current compliance requirements. Carlo Ricketts DO 08/01/2025 9:34:30 AM This report has been signed electronically. Number of Addenda: 0 Note Initiated On: 08/01/2025 6:22 AM
--- NOTE | 2025-08-01 09:35 | OP.PROVAT_ITS ---
08/01/2025 Marlen Bear [facility] [address] [place] [address] Re : Upper GI endoscopy procedure for Abdirizak Bates Dear Dr. Bear This procedure was performed on Friday, August 01, 2025. My impressions and recommendations are as follows: Impressions : - Normal esophagus. - Chronic gastritis. Biopsied. - No gross lesions in the entire examined duodenum. Recommendations : - Discharge patient to home. - Resume previous diet. - Continue present medications. - Await pathology results. -Carafate 1 g 3 times a day x 14 days My findings are described in the full procedure note, which is enclosed. If I can be of further assistance, please feel free to contact me at . Sincerely, Carlo Friend, 08/01/2025 9:34:30 AM This report has been signed electronically.
--- NOTE | 2025-08-01 10:12 | POSTOPAN2_ITS ---
Anesthesia Postop Eval I Sum Postop Eval Completion status Anesthesia document: Postop Eval 1 completed: Yes Anesthesia Postop Eval I Summary Anesthesia Postop Eval I Summary: Anesthesia Postop Eval I: Assessment Summary Airway patent Yes 08/01/25 09:27 METAL FITTER.MDOT Spontaneous unlabored Yes 08/01/25 09:27 METAL FITTER.MDOT respirations Mental status Awake,Calm 08/01/25 09:27 METAL FITTER.MDOT nausea No 08/01/25 09:27 METAL FITTER.MDOT Vomiting No 08/01/25 09:27 METAL FITTER.MDOT Anesthesia Postop Eval I: Fluid Summary Crystalloid volume administer 300 08/01/25 09:27 METAL FITTER.MDOT (ml) Colloids volume administered ( ml) Blood Product volume administered (ml) Total IV fluid infused 300 08/01/25 09:27 METAL FITTER.MDOT Anesthesia Postop Eval I: Summary Notes Anesthesia Complication No 08/01/25 09:27 METAL FITTER.MDOT Anesthesia Complication Comment: Post-operative progress note Anesthesia: Postop Eval II Evaluation Mental status: Awake and Calm Pain Level: 0 nausea: No Vomiting: No Complications Anesthesia Complication: No
--- NOTE | 2025-08-01 10:12 | PCM.POSTANE2 ---
Anesthesia Postop Eval I Sum Postop Eval Completion status Anesthesia document: Postop Eval 1 completed: Yes Anesthesia Postop Eval I Summary Anesthesia Postop Eval I Summary: Anesthesia Postop Eval I: Assessment Summary Airway patent Yes 08/01/25 09:27 DUST COLLECTOR ATTENDANT.MDOT Spontaneous unlabored Yes 08/01/25 09:27 DUST COLLECTOR ATTENDANT.MDOT respirations Mental status Awake,Calm 08/01/25 09:27 DUST COLLECTOR ATTENDANT.MDOT nausea No 08/01/25 09:27 DUST COLLECTOR ATTENDANT.MDOT Vomiting No 08/01/25 09:27 DUST COLLECTOR ATTENDANT.MDOT Anesthesia Postop Eval I: Fluid Summary Crystalloid volume administer 300 08/01/25 09:27 DUST COLLECTOR ATTENDANT.MDOT (ml) Colloids volume administered ( ml) Blood Product volume administered (ml) Total IV fluid infused 300 08/01/25 09:27 DUST COLLECTOR ATTENDANT.MDOT Anesthesia Postop Eval I: Summary Notes Anesthesia Complication No 08/01/25 09:27 DUST COLLECTOR ATTENDANT.MDOT Anesthesia Complication Comment: Post-operative progress note Anesthesia: Postop Eval II Evaluation Mental status: Awake and Calm Pain Level: 0 nausea: No Vomiting: No Complications Anesthesia Complication: No
== END 2025-08-01 10:08 | disposition home or self-care (01) ==
LOC: EN 05:27 → AC 05:28
PROVIDERS: PCP Internal Medicine; Referring Provider Internal Medicine; Visit Provider Internal Medicine Gastroenterology
PROC: 0DJ08ZZ Inspection of Upper Intestinal Tract, Via Natural or Artificial Opening Endoscopic (ICD-10-PCS; CPT 43235; principal; 2025-08-01 06:25)
DX: K29.50 Unspecified chronic gastritis without bleeding (principal); E11.9 Type 2 diabetes mellitus without complications; R10.13 Epigastric pain; D64.9 Anemia, unspecified; E78.00 Pure hypercholesterolemia, unspecified; I10 Essential (primary) hypertension; Z98.1 Arthrodesis status; J45.909 Unspecified asthma, uncomplicated; Z79.84 Long term (current) use of oral hypoglycemic drugs; Z79.82 Long term (current) use of aspirin; Z79.899 Other long term (current) drug therapy; F17.220 Nicotine dependence, chewing tobacco, uncomplicated; I25.10 Atherosclerotic heart disease of native coronary artery without angina pectoris
CPT/HCPCS: 44361; 82962; 88305; J2405